=== PATIENT | female | born 1970 | race Caucasian/White ===

== ENCOUNTER 2022-02-24 16:02 | Emergency (ER) | payer OTHER ==
--- OUTSIDE RECORDS SUMMARY | 2022-02-24 16:10 | XMS REPORT | Continuity of Care Document ---
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 times daily as needed for Pain. hydrOXYzine 2019-04 Yes Anxiety 10mg Take 1 H arris (ATARAX) 10 0-26 tablet by [facility] lth mg tablet 00:00: mouth 3 00 times daily as needed for Itching or Anxiety. baclofen Yes Neck pain 10mg Take 1 Maria rris (LIORESAL) 9-24 tablet by [facility] th 10 mg 00:00: mouth 2 tablet 00 times daily as needed (muscle spasms) STOP cyclobenza kasia (FLEXERIL) 10 mg tablet. amitriptyli Yes Neck pain 25mg Take 1 Mahmood ne (ELAVIL) 9-03 tablet by [facility] lth 25 mg 00:00: mouth at tablet 00 bedtime nightly. varenicline Yes Encounter Start Mahmood (CHANTIX) 09-11 for smoking taking H ealth 0.5 mg 00:00: cessation this tablet 00 counseling medication 1 week prior to setting a quit date for smoking. Stop smoking on day 8.Days 1 to 3: take 1 tablet once dailyDays 4 to 7: take 1 tablet twice daily. varenicline Yes Encounter Start [place] (CHANTIX) 1 6-02 for smoking taking Health mg tablet 00:00: cessation this 00 counseling medication on day 8. Take 1 tablet by mouth 2 times daily.. gabapentin Yes Neck pain 300mg Take 1 [place] (NEURONTIN) 5-15 capsule by [facility] 300 mg 00:00: mouth 3 capsule 00 times daily. ibuprofen Yes Caries 600mg Take 1 [facility] (MOTRIN) 4-13 tablet by [facility] 600 mg 00:00: mouth tablet 00 every 8 hours as needed for Pain. MULTIVITAMI Yes Take by [facility] N (DAILY 9-24 mouth. Health VITAMIN OR) 08:09: 11 sulfamethox Yes 1{tbl} Q.5D Take 1 Maria rris azole-trime 9-24 tablet by [facility] thoprim 08:09: mouth 2 (BACTRIM 11 times DS) 800-160 daily. mg per tablet conjugated Yes Vaginal .5g Insert 0.5 [place] estrogens 803 dryness g [facility] (PREMARIN) 00:00: vaginally 0.625 00 2 times mg/gram weekly. vaginal cream silver Yes Desquamated Apply [facility] sulfADIAZIN 4-29 skin topically [facility] E 00:00: to (SILVADENE) 00 radiated 1 % topical area up to cream three times daily and after each bath.. ibuprofen Yes Cervical 400mg Take 2 H arris (MOTRIN IB) 2-13 cancer tablets by [facility] 200 mg 00:00: mouth tablet 00 every 6 hours as needed for Pain. Immunizations Ordered Immunization Filled Immunization Date Status Commen ts Source Name Name FLUCELVAX QUAD PF 2021-02-[address] 00:00:00 [facility] PFIZER COVID-19 MRNA 2020-08-05 Completed Meth odist VACCINATION 00:00:00 Hospital PFIZER COVID-19 MRNA 2020-07-08 Completed Meth odist VACCINATION 00:00:00 [facility] Influenza, 2020-03-12 Completed [facility] Vaccine<FLUCELVAX>(M 00:00:00 ulti-Dose) Tdap (Tetanus 2020-03-12 Completed [facility] th Toxoid, Reduced 00:00:00 Diphtheria Toxoid And Acellular Pertussis, Absorbed) Vital Signs Vital Name Observation Time Observation Value Comments Source Systolic blood 2022-02-20 01:13:29 129 mm[Hg] Method [facility] pressure Diastolic blood 2022-02-20 01:13:29 67 mm[Hg] [facility] pressure Heart rate 2022-02-20 01:13:29 60 /min [facility] [place] [place] Respiratory rate 2022-02-20 01:13:29 18 /min [facility] Oxygen saturation in 2022-02-20 01:13:29 96 /min [facility] Arterial blood by Pulse oximetry Body height 2022-02-19 20:30:[address] [facility] [place] [place] Body weight 2022-02-19 20:30:[address] [facility] [place] [place] BMI 2022-02-19 20:30:00 30.04 kg/m2 [facility] [place] [place] Body temperature 2022-02-19 20:29:09 36.61 Nydia [facility] pulse rate 2021-12-16 13:21:49 87 /min [facility], 2021-12-16 13:21:49 67 mm[Hg] [facility] blood pressure, 2021-12-16 13:21:49 132 mm[Hg] [facility] systolic Health pulse rate 2020-11-25 14:31:56 70 [facility], 2020-11-25 14:31:56 74 mm[Hg] [facility] diastolic Health blood pressure, 2020-11-25 14:31:56 113 mm[Hg] [facility] pulse rate 2020-11-25 13:39:38 70 /[facility], 2020-11-25 13:39:38 74 mm[Hg] [facility] blood pressure, 2020-11-25 13:39:38 113 mm[Hg] [facility] Procedures Procedure Date / Time Performing Source Performed Clinician CT CHEST WO CONTRAST ABDOMEN WO 2022-02-20 Cristóbal Ovalle CONTRAST PELVIS WO CONTRAST 01:47:08 [facility] ECG ED PRELIMINARY INTERPRETATION 2022-02-20 Cristóbal Ovalle 01:34:30 [facility] HC COMPLETE BLD COUNT W/AUTO DIFF 2022-02-19 Eulalio Manning 21:40:00 Hospital COMPREHENSIVE METABOLIC PANEL 2022-02-19 Alee Manning [facility] 21:40:00 Hospital HCG QUALITATIVE, SERUM SCREEN 2022-02-19 Alee Manning [facility] 21:40:00 Hospital ESTIMATED GFR 2022-02-19 Alee Manning Confucianist 21:40:00 Hospital ECG 12-LEAD 2022-02-19 Alee Manning 20:46:22 Hospital URINE CULTURE 2022-02-19 Alee Manning 20:34:00 Hospital URINALYSIS SCREEN AND MICROSCOPY, 2022-02-19 Eulalio Manning WITH REFLEX TO CULTURE 20:34:00 Hospital HEPATITIS B SURFACE ANTIGEN 2022-02-05 Eddie Farris odist 15:30:00 Hospital HEPATITIS C ANTIBODY 2022-02-05 Eddie Farris 15:30:00 [facility] HIV 1/2 ANTIGEN/ANTIBODY, FOURTH 2022-02-05 Eddie Farris GENERATION, WITH REFLEXES 15:30:00 Hospit al HSV 1 AND 2 SPECIFIC AB IGG 2022-02-05 Eddie Farris odist 15:30:00 Hospital RPR WITH REFLEX TO TITER 2022-02-05 Eddie Farris 15:30:00 [facility] HEPATITIS C VIRUS (HCV), 2022-02-[address] QUANTITATIVE PCR 15:30:00 Hospital SURGICAL PATHOLOGY REQUEST 2021-12-26 Esthela Small Wy thodist 18:06:00 Hospital COLONOSCOPY 2021-12-26 Esthela Smallist 15:44:00 [facility] ESOPHAGOGASTRODUODENOSCOPY (EGD) 2021-12-26 Esthela Small Confucianist 15:44:00 Hospital COVID-19 QUALITATIVE RT-PCR 2021-12-24 Esthela Small ethodist 12:41:00 [facility] THINPREP TIS AND HPV MRNA E6/E7 2021-12-18 Eddie Farris 18:34:00 [facility] ECG 12-LEAD 2021-11-28 Keith Carroll 15:26:34 [facility] TROPONIN T 2021-11-07 Zeyad Cohen 20:01:00 [facility] COVID-19 QUALITATIVE RT-PCR 2021-11-07 Zeyad Cohen odniki 19:09:00 [facility] COVID-19 OMICRON VARIANT 2021-11-[address] QUALITATIVE RT-PCR 19:09:00 [facility] XR CHEST 2 VW 2021-11-07 Zeyad Cohen 18:51:38 [facility] ECG ED PRELIMINARY INTERPRETATION 2021-11-07 Karo Cohen 18:50:27 [facility] COMPREHENSIVE METABOLIC PANEL 2021-11-07 Zeyad Cohen Wy thodist 18:03:00 [facility] TROPONIN T 2021-11-07 Zeyad Cohen 18:03:00 [facility] HC COMPLETE BLD COUNT W/AUTO DIFF 2021-11-07 Karo Cohen 18:03:00 [facility] HCG QUALITATIVE, SERUM SCREEN 2021-11-07 Zeyad Cohen thodist 18:03:00 [facility] ESTIMATED GFR 2021-11-07 Zeyad Cohen 18:03:00 [facility] ECG 12-LEAD 2021-11-07 OghoghoLiborioist 17:57:16 [facility] FL UGI W OR WO KUB 2021-11-03 Esthela Smallist 15:16:30 [facility] HEPATITIS C VIRUS (HCV), 2021-11-03 Esthela Small Meth odniki QUANTITATIVE PCR 13:52:00 [facility] HEPATIC FUNCTION PANEL 2021-11-03 Esthela Small Method ist 13:52:00 [facility] XR CHEST 2 VW 2021-10-15 Julissa Stellamarck Alvarezist 02:52:42 [facility] COMPREHENSIVE METABOLIC PANEL 2021-10-15 Mario Maher Wy thodist 01:15:00 [facility] TROPONIN T 2021-10-15 Mario Maher 01:15:00 [facility] B NATRIURETIC PEPTIDE 2021-10-15 Mario Maherist 01:15:00 [facility] HC COMPLETE BLD COUNT W/AUTO DIFF 2021-10-15 Mario Maher 01:15:00 [facility] PROTHROMBIN TIME WITH INR 2021-10-15 Mario Maher ist 01:15:00 [facility] PARTIAL THROMBOPLASTIN TIME (PTT) 2021-10-15 Mario Maher 01:15:00 [facility] ESTIMATED GFR 2021-10-15 Mario Maher 01:15:00 [facility] ECG 12-LEAD 2021-10-15 Mario Maher 00:33:[address] [facility] [address] ANGIOGRAM PE CHEST 2021-10-12 Trung Hudson 17:55:52 Hospital HC COMPLETE BLD COUNT W/AUTO DIFF 2021-10-12 Trung Hudson 15:36:00 Hospital COMPREHENSIVE METABOLIC PANEL 2021-10-12 Trung Hudson ethodist 15:36:00 Hospital TROPONIN T 2021-10-12 Trung Hudson 15:36:00 Hospital B NATRIURETIC PEPTIDE 2021-10-12 Trung Hudson 15:36:00 Hospital CREATINE KINASE, TOTAL (CPK) 2021-10-12 Trung Hudson thodist 15:36:00 Hospital ESTIMATED GFR 2021-10-12 Trung Hudson 15:36:00 Hospital ECG ED PRELIMINARY INTERPRETATION 2021-10-12 Trung Hudson 15:20:39 Hospital URINE CULTURE 2021-10-12 Rajinder Ordoñez 15:17:00 [facility] URINALYSIS SCREEN AND MICROSCOPY, 2021-10-12 Arslan Ordoñez WITH REFLEX TO CULTURE 15:17:00 [facility] HCG QUALITATIVE, URINE SCREEN 2021-10-12 Rajinder Ordoñez 15:17:00 [facility] ECG 12-LEAD 2021-10-12 Rajinder Ordoñez 14:48:50 [facility] [place] AN ELECTIVE SUPRAGLOTTIC AIRWAY 2021-09-30 Ruddy Marie 12:10:00 Hospital DECOMPRESSION, ULNAR NERVE 2021-09-30 Rebecca Brownlee 12:06:00 [facility] COVID-19 QUALITATIVE RT-PCR 2021-09-26 Dulce Maria Pierre 14:23:00 [facility] PROTHROMBIN TIME WITH INR 2021-09-26 Antonio Pierre ist 14:23:00 [facility] PARTIAL THROMBOPLASTIN TIME (PTT) 2021-09-26 Keith Pierre 14:23:00 [facility] COMPREHENSIVE METABOLIC PANEL 2021-09-26 Gabby Me thodist 14:23:00 [facility] ESTIMATED GFR 2021-09-26 Rebecca Brownlee 14:23:00 [facility] HEMOGLOBIN A1C 2021-09-26 Rebecca Brownlee 14:23:00 [facility] CBC WITH PLATELET AND DIFFERENTIAL 2021-09-19 Lexie Esparza 07:10:00 Hospital THYROID STIMULATING HORMONE 2021-09-19 Peggy Esparza 07:10:00 [facility] XR ELBOW 3+ VW LEFT 2021-09-10 Rebecca Brownlee 15:28:27 [facility] CT ANGIOGRAM NECK W WO CONTRAST 2021-08-27 Christine Retana 00:01:04 [facility] CT ANGIOGRAM HEAD W WO CONTRAST 2021-08-27 Christine Retana 00:00:50 [facility] CT HEAD WO CONTRAST 2021-08-26 Christine Retana 23:42:36 [facility] ECG ED PRELIMINARY INTERPRETATION 2021-08-26 Christine Retana 23:22:45 [facility] HC COMPLETE BLD COUNT W/AUTO DIFF 2021-08-26 Christine Retana 21:57:00 [facility] COMPREHENSIVE METABOLIC PANEL 2021-08-26 Christine Retana Me thodist 21:57:00 [facility] TROPONIN T 2021-08-26 Christine Retana 21:57:00 [facility] B NATRIURETIC PEPTIDE 2021-08-26 Christine Retana 21:57:00 [facility] HCG QUALITATIVE, SERUM SCREEN 2021-08-26 Christine Retana Me thodist 21:57:00 [facility] ESTIMATED GFR 2021-08-26 Christine Retana 21:57:00 [facility] ECG 12-LEAD 2021-08-26 Christine Retana 21:42:16 [facility] URINE CULTURE 2021-08-06 Evelyn Martin Confucianist 22:27:00 [facility] URINALYSIS SCREEN AND MICROSCOPY, 2021-08-06 Evelyn Martin Siist WITH REFLEX TO CULTURE 22:27:00 [facility] XR CHEST 2 VW 2021-08-06 Evelyn Martin Confucianist 20:36:00 [facility] INFLUENZA ANTIGEN 2021-08-06 Susie Melton 20:10:00 [facility] RESPIRATORY PATHOGEN PANEL WITH 2021-08-06 Susie Melton COVID-19 RT-PCR 20:10:00 [facility] ECG ED PRELIMINARY INTERPRETATION 2021-08-06 Evelyn Martin Si Confucianist 20:08:02 [facility] COMPREHENSIVE METABOLIC PANEL 2021-08-06 Susie Melton thodist 20:05:00 [facility] HC COMPLETE BLD COUNT W/AUTO DIFF 2021-08-06 Paige Melton Confucianist 20:05:00 [facility] TROPONIN T 2021-08-06 Susie Melton 20:05:00 [facility] LIPASE LEVEL 2021-08-06 Susie Melton Confucianist 20:05:00 [facility] ESTIMATED GFR 2021-08-06 Susie Melton 20:05:00 [facility] ECG 12-LEAD 2021-08-06 Susie Melton Confucianist 19:55:29 [facility] TROPONIN T 2021-08-01 Christine Retana Confucianist 03:32:00 [facility] ECG ED PRELIMINARY INTERPRETATION 2021-08-01 Nelson Villagran i Confucianist 02:37:45 [facility] HC COMPLETE BLD COUNT W/AUTO DIFF 2021-08-01 Christine Retana Confucianist 00:35:00 [facility] COMPREHENSIVE METABOLIC PANEL 2021-08-01 Christine Retana thodist 00:35:00 [facility] TROPONIN T 2021-08-01 Christine Retana Confucianist 00:35:00 [facility] B NATRIURETIC PEPTIDE 2021-08-01 Christine Retana Confucianist 00:35:00 [facility] ESTIMATED GFR 2021-08-01 Christine Retana Confucianist 00:35:00 [facility] ECG 12-LEAD 2021-08-01 Christine Retana Confucianist 00:23:19 [facility] TROPONIN T 2021-07-30 Jaida Sales 21:35:00 Hospital ECG ED PRELIMINARY INTERPRETATION 2021-07-30 Evelyn Martin Si 19:53:48 Hospital XR CHEST 2 VW 2021-07-30 Evelyn Martin Confucianist 19:37:56 Hospital COMPREHENSIVE METABOLIC PANEL 2021-07-30 Jaida Sales 18:40:00 Hospital HC COMPLETE BLD COUNT W/AUTO DIFF 2021-07-30 Jaida Sales 18:40:00 Hospital TROPONIN T 2021-07-30 Jaida Sales 18:40:00 Hospital B NATRIURETIC PEPTIDE 2021-07-[address] 18:40:00 Hospital ESTIMATED GFR 2021-07-30 Jaida Sales 18:40:00 Hospital ECG 12-LEAD 2021-07-30 Jaida Sales 18:33:57 Hospital MAMMO BREAST SCREEN TOMOSYNTHESIS 2021-07-28 IsShell olivia Confucianist BILATERAL 14:20:00 [facility] ECG ED PRELIMINARY INTERPRETATION 2021-07-01 Nelson Villagran i 00:04:28 Hospital TROPONIN T 2021-06-30 Mario Maher 23:09:00 [facility] RESPIRATORY PATHOGEN PANEL WITH 2021-06-30 Mario Maher COVID-19 RT-PCR 21:09:00 [facility] XR CHEST 2 VW 2021-06-30 Mario Maher 20:40:51 [facility] COMPREHENSIVE METABOLIC PANEL 2021-06-30 Mario Maher Me thodist 20:06:00 [facility] TROPONIN T 2021-06-30 Mario Maher 20:06:00 [facility] B NATRIURETIC PEPTIDE 2021-06-30 Mario Maher 20:06:00 [facility] HC COMPLETE BLD COUNT W/AUTO DIFF 2021-06-30 Mario Maher 20:06:00 [facility] ESTIMATED GFR 2021-06-30 Mario Maher 20:06:00 [facility] ECG 12-LEAD 2021-06-30 Mario Maher 19:54:19 [facility] POC URINALYSIS DIPSTICK 2021-06-16 Eddie Farris t 18:20:00 [facility] THINPREP TIS PAP AND HPV MRNA 2021-06-16 Eddie Farris Me thodist E6/E7 REFLEX HPV 16,18/45 18:17:00 Hospit al URINALYSIS, COMPLETE, WITH REFLEX 2021-06-16 Eddie Farris TO CULTURE 17:55:00 Hospital XR SHOULDER 2+ VW RIGHT 2021-06-02 Roger Ling t 17:52:26 [facility] MRI LUMBAR SPINE WO CONTRAST 2021-05-09 Shell Vargas Met hodist 18:44:08 [facility] MRI CERVICAL SPINE WO CONTRAST 2021-05-05 Shell Vargas ethodist 14:11:49 [facility] CT LUMBAR SPINE WO CONTRAST 2021-05-04 Liborio Herrera hodist 22:36:[address] THORACIC SPINE WO CONTRAST 2021-05-04 [facility] 22:35:58 Hospital TROPONIN T 2021-04-13 Shine Lui 01:33:00 Hospital XR CHEST 2 VW 2021-04-12 Shine Lui 23:31:00 [facility] COMPREHENSIVE METABOLIC PANEL 2021-04-12 Shine Lui thodist 22:56:00 Hospital LIPASE LEVEL 2021-04-12 Shine Lui 22:56:00 Hospital HC COMPLETE BLD COUNT W/AUTO DIFF 2021-04-12 Shine Lui 22:56:00 Hospital TROPONIN T 2021-04-12 Shine Lui 22:56:00 Hospital ESTIMATED GFR 2021-04-12 Shine Lui 22:56:[address] RENAL STONE PROTOCOL 2021-04-12 Shine uLi 22:36:21 Hospital ECG 12-LEAD 2021-04-12 Shine Lui 21:52:29 Hospital URINE CULTURE 2021-04-12 Shine Lui 21:52:00 [facility] URINALYSIS SCREEN AND MICROSCOPY, 2021-04-12 Shine Lui WITH REFLEX TO CULTURE 21:52:00 [facility] ECG ED PRELIMINARY INTERPRETATION 2021-04-12 Shine Lui 21:47:56 [facility] Plan of Care Planned Activity Planned Date Details Comments Source Future Scheduled 2024-09-11 Screening for [facility] Test 00:00:00 malignant neoplasm of cervix (procedure) [code = 680566259] Future Scheduled 2024-09-11 Screening for [facility] Test 00:00:00 malignant neoplasm of cervix (procedure) [code = 552832503] Future Scheduled 2022-02-22 HEPATITIS B VACCINES Met [facility] Test 22:17:15 (1 of 3 - 3-dose series) [code = HEPATITIS B VACCINES (1 of 3 - 3-dose series)] Future Scheduled 2022-02-22 Pneumococcal Vaccine: [facility] Test 22:17:15 Pediatrics (0 to 5 Years) and At-Risk Patients (6 to 64 Years) (1 - PCV) [code = Pneumococcal Vaccine: Pediatrics (0 to 5 Years) and At-Risk Patients (6 to 64 Years) (1 - PCV)] Future Scheduled 2022-02-22 COLONOSCOPY SCREENING [facility] Test 22:17:15 [code = COLONOSCOPY SCREENING] Future Scheduled 2022-02-22 SHINGLES VACCINES (1 Met [facility] Test 22:17:15 of 2) [code = SHINGLES VACCINES (1 of 2)] Future Scheduled 2022-02-22 COVID-19 VACCINE (3 - [facility] Test 22:17:15 Booster for Pfizer series) [code = COVID-19 VACCINE (3 - Booster for Pfizer series)] Future Scheduled 2022-02-22 INFLUENZA VACCINE Method [facility] Test 22:17:15 [code = INFLUENZA VACCINE] Future Scheduled 2022-02-22 BREAST CANCER [facility] Test 22:17:15 SCREENING [code = BREAST CANCER SCREENING] Future Scheduled 2022-02-22 Screening for [facility] Test 22:17:15 malignant neoplasm of cervix (procedure) [code = 117199713] Future Scheduled 2022-01-10 IMM Influenza Seasonal H arr Health Test 00:00:00 (>/= 19 yrs) [code = IMM Influenza Seasonal (>/= 19 yrs)] Future Scheduled 2020-01-14 Breast Cancer Scrn [facility] Test 00:00:00 (Yearly) [code = Breast Cancer Scrn (Yearly)] Future Scheduled 2019 Screening for Mahmood [facility] lt Test 00:00:00 malignant neoplasm of colon (procedure) [code = 980201164] Future Scheduled 1975 Imm Pneumococcal 0-64 Maria [facility] Health Test 00:00:00 (1 - PCV) [code = Imm Pneumococcal 0-64 (1 - PCV)] Future Scheduled 1972 Dental X-Ray: Mahmood a lt Test 00:00:00 Bitewings [code = Dental X-Ray: Bitewings] Future Scheduled 1969 COVID-19 Vaccine (#1) [facility] Test 00:00:00 [code = COVID-19 Vaccine (#1)] Future Scheduled 1969 Dental Oral Exam [code [facility] Test 00:00:00 = Dental Oral Exam] Future Scheduled 1969 Dental [facility] Test 00:00:00 Prophylaxis/Periodonta l Maintenance [code = Dental Prophylaxis/Periodonta l Maintenance] Future Scheduled 1969 Dental X-Ray: Full [facility] Test 00:00:00 Mouth [code = Dental X-Ray: Full Mouth] Future Scheduled 1969 Fluoride Varnish [code [facility] Test 00:00:00 = Fluoride Varnish] Encounters Start End Encounter Admission Attending Care Care Encounter Source Date/Time Date/Time Type Type Clinicians Facility Department ID 2022-02-19 2022-02-19 Emergency Mickey, 1.2.840.1 [id number] Methodi 18:09:00 20:16:[address] [place] 3.430.2.7 Hosp shai .3.256110 l .8 2022-02-19 2022-02-19 Emergency [facility] [id number] [place] [address] 00:00:00 00:00:00 CRISTÓBAL [address] 2022-02-12 2022-02-12 Orders Jessica 1.2.840.1 [id number] Methodi 00:00:00 00:00:00 Only Maureen 55666.1.[address] 3.430.2.7 Hospit a .3.717738 l .8 2022-02-11 2022-02-11 Orders Jessica, 1.2.840.1 [id number] Methodi 00:00:00 00:00:00 Only Maureen 99703.1.[address] 3.430.2.7 Hospit a .3.469157 l .8 2022-02-11 2022-02-11 Telephone Prasanth, 1.2.840.1 [id number] Methodi 00:00:00 00:00:[address] 3.430.2.7 Hospit a .3.817540 l .8 2022-02-09 2022-02-09 Outpatient COH COH PDPFCCG ETQ COH 00:00:00 00:00:00 [id number] 2022-02-09 2022-02-09 Telephone Prasanth, 1.2.840.1 [id number] Methodi 00:00:00 00:00:[address] 3.430.2.7 Hospit a .3.801846 l .8 2022-02-05 2022-02-05 Lab Prasanth, 1.2.840.1 [id number] Methodi 10:50:00 10:55:00 Eddie Franco [address]44.1.[address] 3.430.2.7 Hospit a .3.396663 l .8 2022-02-05 2022-02-05 Office Prasanth, 1.2.840.1 [id number] Methodi 09:40:00 10:31:06 Visit Eddie Franco 26324.1.[address] 3.430.2.7 Hospit a .3.141684 l .8 2022-02-05 2022-02-05 Travel 1.2.840.1 1.2.864.656 [id number] Methodi 00:00:00 00:00:[address] 3.430.2.7 0.2.7.3.698 Ho spita .3.369710 084.8 l .8 2022-02-05 2022-02-05 Refill Alicia, 1.2.840.1 [id number] Methodi 00:00:00 00:00:[address] [place] 3.430.2.7 Hospi ta .3.869000 l .8 2022-02-05 2022-02-05 Outpatient PRASANTH, [facility] [id number] 00:00:00 00:00:[address] 2022-02-05 2022-02-05 Outpatient [facility] [id number] [address] 00:00:00 00:00:[address] 2022-02-03 2022-02-03 Telephone Prasanth, 1.2.840.1 [id number] Methodi 00:00:00 00:00:00 Eddie Franco 42065.1.[address] 3.430.2.7 Hospit a .3.491232 l .8 2022-01-01 2022-01-01 Telephone Alessio, 1.2.840.1 [id number] Methodi 00:00:00 00:00:[address] 3.430.2.7 Hospit a .3.235676 l .8 2021-12-26 2021-12-26 [facility], 1.2.840.1 [id number] Methodi 11:00:00 11:45:[address] Hasan 3.430.2.7 Hospit a .3.019640 l .8 2021-12-26 2021-12-26 [facility], 1.2.840.1 [id number] Methodi 10:21:00 11:28:00 Encounter Proctor 64171.1.[address] Hasan 3.430.2.7 Hospit a .3.588413 l .8 2021-12-26 2021-12-26 Anesthesia Hans Casper 1.2.840.1 [id number] Methodi 10:44:00 11:06:00 Event Vitaliy 21504.1.[address] 3.430.2.7 Hospit a .3.730856 l .8 2021-12-26 2021-12-26 Travel 1.2.840.1 1.2.862.920 [id number] Methodi 00:00:00 00:00:[address] 3.430.2.7 0.2.7.3.698 Ho spita .3.446492 084.8 l .8 2021-12-26 2021-12-26 Outpatient [facility] 185 [id number] [address] 00:00:00 00:00:00 PROCTOR [address] 2021-12-24 2021-12-24 Lab Staci, 1.2.840.1 [id number] Methodi 08:00:00 08:15:[address] Hasan 3.430.2.7 Hospit a .3.590673 l .8 2021-12-24 2021-12-24 Orders Marc, 1.2.840.1 [id number] Methodi 00:00:00 00:00:00 Only Kortney 13860.1.[address] 3.430.2.7 Hospit a .3.978207 l .8 2021-12-24 2021-12-24 Outpatient [facility] [id number] [address] 00:00:00 00:00:[address] PROCTOR [address] 2021-12-18 2021-12-18 Office Prasanth, 1.2.840.1 [id number] Methodi 11:00:00 13:02:01 Visit Eddie Franco 01616.1.1 065 st 3.430.2.7 Hospit a .3.365604 l .8 2021-12-18 2021-12-18 Travel 1.2.840.1 1.2.573.627 1269 395997 Methodi 00:00:00 00:00:[address] 3.430.2.7 0.2.7.3.698 Ho spita .3.313195 084.8 l .8 2021-12-18 2021-12-18 Outpatient [facility] [id number] [address] [place] 00:00:00 00:00:[address] 2021-12-16 2021-12-16 Office Doug Estevez [facility] Encounter/ Legacy 00:00:00 00:00:00 Visit Bijan Carson [id number] [facility]ly [facility] [id number] [facility] 2021-12-09 2021-12-09 Refill Oleksandr, 1.2.840.1 [id number] 2099 [id number] Methodi 00:00:00 00:00:[address] 3.430.2.7 Hospit a .3.310687 l .8 2021-11-28 2021-11-28 Office Carly, 1.2.840.1 [id number] 814 [id number] Methodi 10:15:00 10:52:48 [address] Pimprapa 14697.1.[address] 3.430.2.7 Hospit a .3.701333 l .8 2021-11-28 2021-11-28 Travel 1.2.840.1 1.2.042.855 5067 090275 Methodi 00:00:00 00:00:[address] 3.430.2.7 0.2.7.3.698 Ho spita .3.821274 084.8 l .8 2021-11-28 2021-11-28 Outpatient CARLY [facility] 2099 [id number] [place] 00:00:00 00:00:[address] 2021-11-17 2021-11-17 Office Fabby, 1.2.840.1 [id number] 459536 4904 Methodi 09:00:00 09:30:00 Visit Juana 44420.1.[address] Kelley 3.430.2.7 Hospit a .3.543033 l .8 2021-11-17 2021-11-17 Travel 1.2.840.1 1.2.618.329 1253 326634 Methodi 00:00:00 00:00:[address] 3.430.2.7 0.2.7.3.698 Ho spita .3.350773 084.8 l .8 2021-11-17 2021-11-17 Outpatient [facility] [id number] [address] [place] [address] 00:00:00 00:00:[address] 2021-11-14 2021-11-14 Orders Istre, 1.2.840.1 [id number] 855348 0305 Methodi 00:00:00 00:00:00 Only Shell 36387.1.[address] Doe 3.430.2.7 Hospi ta .3.048674 l .8 2021-11-11 2021-11-11 Telemedici Istre, 1.2.840.1 [id number] 365 [id number] Methodi 10:00:00 10:40:34 ne Shell 76270.1.[address] Doe 3.430.2.7 Hospi ta .3.921684 l .8 2021-11-11 2021-11-11 Outpatient [facility], [facility] [id number] [address] [place] 00:00:00 00:00:00 SHELL [address] 2021-11-07 2021-11-07 Emergency Noel, 1.2.840.1 [id number] 2100 [id number] Methodi 14:04:00 15:46:[address] Kirsten 3.430.2.7 Hospit a .3.912101 l .8 2021-11-07 2021-11-07 Travel 1.2.840.1 1.2.489.218 0755 514759 Methodi 00:00:00 00:00:[address] 3.430.2.7 0.2.7.3.698 Ho spita .3.809460 084.8 l .8 2021-11-07 2021-11-07 Emergency NOEL, [facility] 064 [id number] [address] [place] 00:00:00 00:00:[address] 2021-11-03 2021-11-03 Lab Staci, 1.2.840.1 [id number] 563732 9256 Methodi 08:25:00 08:30:[address] Hasan 3.430.2.7 Hospit a .3.378975 l .8 2021-11-03 2021-11-03 Telephone Alessio 1.2.840.1 [id number] 2100 820691 Methodi 00:00:00 00:00:[address] 3.430.2.7 Hospit a .3.464968 l .8 2021-11-03 2021-11-03 Travel 1.2.840.1 1.2.436.681 9537 854521 Methodi 00:00:00 00:00:[address] 3.430.2.7 0.2.7.3.698 Ho spita .3.771722 084.8 l .8 2021-11-03 2021-11-03 Outpatient [facility] [id number] [address] [place] 00:00:00 00:00:00 PROCTOR [address] 2021-11-03 2021-11-03 Outpatient [facility] [id number] [address] [place] 00:00:00 00:00:00 PROCTOR [address] 2021-10-29 2021-10-29 Documentat Binta 1.2.840.1 [id number] 2 [id number] Methodi 00:00:00 00:00:00 ion Amanda 15713.1.[address] 3.430.2.7 Hospit a .3.964353 l .8 2021-10-29 2021-10-29 Prep for Binta, 1.2.840.1 [id number] 059 [id number] Methodi 00:00:00 00:00:00 Surgery Amanda 65946.1.[address] 3.430.2.7 Hospit a .3.402763 l .8 2021-10-29 2021-10-29 Telephone Binta, 1.2.840.1 [id number] [id number] Methodi 00:00:00 00:00:[address] 3.430.2.7 Hospit a .3.740968 l .8 2021-10-29 2021-10-29 Travel 1.2.840.1 1.2.353.987 6337 432618 Methodi 00:00:00 00:00:[address] 3.430.2.7 0.2.7.3.698 Ho spita .3.377202 084.8 l .8 2021-10-22 2021-10-22 Office Kem, 1.2.840.1 [id number] 758 [id number] Methodi 09:40:00 10:17:00 Visit Rebecca Nguyen 57462.1.[address] 3.430.2.7 Hospit a .3.369000 l .8 2021-10-22 2021-10-22 Travel 1.2.840.1 1.2.177.578 9046 389017 Methodi 00:00:00 00:00:[address] 3.430.2.7 0.2.7.3.698 Ho spita .3.972926 084.8 l .8 2021-10-22 2021-10-22 Outpatient KEM [facility] 2100 490169 [place] 00:00:00 00:00:00 REBECCA [facility] 2021-10-14 2021-10-15 Emergency Julissa, 1.2.840.1 [id number] 034 [id number] Methodi 21:57:00 00:06:00 Stella H [address]200.1.[address] 3.430.2.7 Hospit a .3.001011 l .8 2021-10-14 2021-10-15 Emergency JULISSA, [facility] 930 [id number] 5[address] [place] 00:00:00 00:00:00 STELLA [address] 2021-10-12 2021-10-12 Emergency Hudson, 1.2.840.1 [id number] 2100 648578 Methodi 10:13:00 14:37:[address]ann 18624.1.[address] 3.430.2.7 Hospit a .3.873984 l .8 2021-10-12 2021-10-12 Emergency [facility], [facility] 064 [id number] [address] [place] 00:00:00 00:00:00 TRUNG [address] 2021-10-09 2021-10-09 Telephone Juan Carlos Rivers 1.2.840.1 [id number] Methodi 00:00:00 00:00:[address] 3.430.2.7 Hospit a .3.933206 l .8 2021-10-09 2021-10-09 Telephone Juan Carlos Rivers 1.2.840.1 [id number] Methodi 00:00:00 00:00:[address] 3.430.2.7 Hospit a .3.441410 l .8 2021-10-09 2021-10-09 Orders Alicia, 1.2.840.1 [id number] 3516 Methodi 00:00:00 00:00:00 Only Shell 03491.1.[address] Gifford 3.430.2.7 Hospi ta .3.266463 l .8 2021-10-02 2021-10-02 Telephone Lazarus 1.2.840.1 [id number] 109 [id number] Methodi 00:00:00 00:00:[address] 3.430.2.7 Hospit a .3.370170 l .8 2021-09-30 2021-09-30 Surgery Kem, 1.2.840.1 [id number] 469 9708002 Methodi 07:15:00 09:02:00 Rebecca Nguyen 37782.1.[address] 3.430.2.7 Hospit a .3.452956 l .8 2021-09-30 2021-09-30 [facility] Kem 1.2.840.1 [id number] 21 [id number] Methodi 06:02:00 08:50:00 Encounter Rebecca Nguyen 11879.1.[address] 3.430.2.7 Hospit a .3.681590 l .8 2021-09-30 2021-09-30 Anesthesia Tomas Mattson W. 1.2.840.1 1045 20688 [id number] Methodi 07:05:00 08:04:00 Event Sunita Marie 78677.1.[address] 3.430.2.7 Hospit a .3.012829 l .8 2021-09-30 2021-09-30 Outpatient [facility] 021 2100 920756 [place] 00:00:00 00:00:00 REBECCA [address] 2021-09-26 2021-09-[address] [facility] 2100 669443 [place] 00:00:00 00:00:00 REBECCA [address] 2021-09-19 2021-09-19 Travel 1.2.840.1 1.2.600.735 4510 968075 Methodi 00:00:00 00:00:[address] 3.430.2.7 0.2.7.3.698 spita .3.210449 084.8 l .8 2021-09-19 2021-09-19 Orders Marrero, 1.2.840.1 [id number] 2099 289726 Methodi 00:00:00 00:00:00 Only Sharon 38158.1.[address] 3.430.2.7 Hospit a .3.153433 l .8 2021-09-19 2021-09-19 Orders Tavares, 1.2.840.1 [id number] 946375 2937 Methodi 00:00:00 00:00:00 Only Peggy 79367.1.[address] 3.430.2.7 Hospit a .3.465993 l .8 2021-09-18 2021-09-18 Orders Propes, 1.2.840.1 252806583 068275 1188 Methodi 00:00:00 00:00:00 Only Pian [address]238.1.[address] 3.430.2.7 Hospit a .3.757667 l .8 2021-09-14 2021-09-14 Orders Tavares, 1.2.840.1 [id number] 222516 8089 Methodi 00:00:00 00:00:00 Only Peggy 71581.1.[address] 3.430.2.7 Hospit a .3.554539 l .8 2021-09-11 2021-09-11 Office Tavares, 1.2.840.1 [id number] 042786 5285 Methodi 15:50:00 16:55:49 Visit Peggy 56705.1.[address] 3.430.2.7 Hospit a .3.382615 l .8 2021-09-11 2021-09-11 Travel 1.2.840.1 1.2.149.683 2401 847060 Methodi 00:00:00 00:00:[address] 3.430.2.7 0.2.7.3.698 spita .3.753829 084.8 l .8 2021-09-11 2021-09-11 [facility] [id number] [address] [place] 00:00:00 00:00:[address] PEGGY [address] 2021-09-10 2021-09-10 Office Kem, 1.2.840.1 [id number] 466 [id number] Methodi 10:40:00 11:03:05 Visit Rebecca Altagracia 05373.1.[address] 3.430.2.7 Hospit a .3.825978 l .8 2021-09-10 2021-09-10 Orders Wyatt, 1.2.840.1 [id number] 2099 374553 Methodi 00:00:00 00:00:00 Only Jami 60094.1.[address] 3.430.2.7 Hospit a .3.956796 l .8 2021-09-10 2021-09-10 Outpatient [facility] 2100 187905 [place] 00:00:00 00:00:00 REBECCA [address] 2021-09-10 2021-09-10 Outpatient [facility] 2100 [id number] [place] 00:00:00 00:00:00 REBECCA [address] 2021-08-31 2021-08-31 Refill Istre, 1.2.840.1 [id number] 443936 5945 Methodi 00:00:00 00:00:[address] Gifford 3.430.2.7 Hospi ta .3.493488 l .8 2021-08-31 2021-08-31 Refill Prasanth, 1.2.840.1 [id number] 343864 3650 Methodi 00:00:00 00:00:00 Eddie Franco 57775.1.[address] 3.430.2.7 Hospit a .3.748557 l .8 2021-08-29 2021-08-29 Telephone Denisse, 1.2.840.1 [id number] 2099 139284 Methodi 00:00:00 00:00:00 [place] Lei 89679.1.[address] 3.430.2.7 Hospit a .3.781209 l .8 2021-08-29 2021-08-29 Orders Istre, 1.2.840.1 [id number] 769155 2080 Methodi 00:00:00 00:00:00 Only Shell 96536.1.[address] Doe 3.430.2.7 Hospi ta .3.609621 l .8 2021-08-28 2021-08-28 Travel 1.2.840.1 1.2.831.225 0375 294284 Methodi 00:00:00 00:00:[address] 3.430.2.7 0.2.7.3.698 Ho spita .3.576866 084.8 l .8 2021-08-26 2021-08-26 Emergency Stevan, 1.2.840.1 [id number] 2100 107927 Methodi 16:36:00 20:08:[address] Adrienne 3.430.2.7 Hospit a .3.574876 l .8 2021-08-26 2021-08-26 Orders Colmenter, 1.2.840.1 [id number] 137 [id number] Methodi 00:00:00 00:00:00 Only Linda 00523.1.[address] 3.430.2.7 Hospit a .3.580683 l .8 2021-08-26 2021-08-26 Emergency STEVAN, [facility] 064 [id number] [address] [place] 00:00:00 00:00:00 CHRISTINE [address] 2021-08-21 2021-08-21 Orders Colmenter, 1.2.840.1 [id number] 626 [id number] Methodi 00:00:00 00:00:00 Only Linda 70765.1.[address] 3.430.2.7 Hospit a .3.365611 l .8 2021-08-14 2021-08-14 Office Colmohsener, 1.2.840.1 [id number] 838 3121442 Methodi 11:00:00 13:05:34 Visit Linda 51904.1.[address] 3.430.2.7 Hospit a .3.246485 l .8 2021-08-14 2021-08-14 Outpatient COLMENTER, [facility] 2100 571138 [place] 00:00:00 00:00:[address] LINDA [address] 2021-08-12 2021-08-12 Office Prasanth, 1.2.840.1 [id number] 0392 Methodi 10:00:00 11:08:57 Visit Eddie Franco 50451.1.[address] 3.430.2.7 Hospit a .3.542074 l .8 2021-08-12 2021-08-12 Travel 1.2.840.1 1.2.135.798 1327 792046 Methodi 00:00:00 00:00:[address] 3.430.2.7 0.2.7.3.698 Ho spita .3.487429 084.8 l .8 2021-08-12 2021-08-12 Outpatient [facility] [id number] [address] [place] 00:00:00 00:00:00 EDDIE [address] 2021-08-08 2021-08-08 Emergency EM Lynda, HCAKW SHIRLENE [id number] 49 [facility] 12:48:00 19:41:00 Di 70 [facility] 2021-08-08 2021-08-08 Emergency EM Lynda, HCAKW HCAKW [id number] [facility] 12:48:00 19:41:00 Di 5521000 [facility] 2021-08-08 2021-08-08 Outpatient Lynda, HCACL LABO [id number] [facility] 19:09:00 19:09:00 Di 00 [facility] 2021-08-08 2021-08-08 Transcribe Istre, 1.2.840.1 [id number] 736 [id number] Methodi 00:00:00 00:00:00 Orders Shell 45142.1.[address] Gifford 3.430.2.7 Hospi ta .3.680152 l .8 2021-08-06 2021-08-06 Emergency Evelyn Martin 1.2.840.1 [id number] Methodi 14:54:00 18:50:[address] 3.430.2.7 Hospit a .3.924412 l .8 2021-08-06 2021-08-06 Travel 1.2.840.1 1.2.421.901 8344 484569 Methodi 00:00:00 00:00:[address] 3.430.2.7 0.2.7.3.698 Ho spita .3.370101 084.8 l .8 2021-08-06 2021-08-06 Emergency EVELYN MARTIN [facility] 064 2100 575071 [place] 00:00:00 00:00:[address] 2021-08-04 2021-08-04 Office Alicia, 1.2.840.1 [id number] 235594 5099 Methodi 14:20:00 15:33:19 Visit Shell 54253.1.[address] Gifford 3.430.2.7 Hospi ta .3.837534 l .8 2021-08-04 2021-08-04 Travel 1.2.840.1 1.2.845.375 0216 546773 Methodi 00:00:00 00:00:[address] 3.430.2.7 0.2.7.3.698 Ho spita .3.690617 084.8 l .8 2021-08-04 2021-08-04 Outpatient ALICIA [facility] [id number] 7[address] [place] 00:00:00 00:00:00 SHELL [address] 2021-07-31 2021-07-31 Emergency Tyshawn, [facility] 1.2.840.1 [id number] Methodi 21:39:00 23:28:[address] 3.430.2.7 Hospit a .3.775315 l .8 2021-07-31 2021-07-31 Travel 1.2.840.1 1.2.279.453 7998 014207 Methodi 00:00:00 00:00:[address] 3.430.2.7 0.2.7.3.698 Ho spita .3.521077 084.8 l .8 2021-07-31 2021-07-31 Emergency TYSHAWN, [facility] 064 2100 266771 [place] 00:00:00 00:00:[address] 2021-07-30 2021-07-30 Emergency MarioEvelyn 1.2.840.1 [id number] Methodi 13:34:00 17:16:[address] 3.430.2.7 Hospit a .3.728919 l .8 2021-07-30 2021-07-30 Telephone Alicia, 1.2.840.1 [id number] 2100 107810 Methodi 00:00:00 00:00:[address] Doe 3.430.2.7 Hospi ta .3.963836 l .8 2021-07-30 2021-07-30 Emergency EVELYN MARTIN [facility] 064 2099 304179 [place] 00:00:00 00:00:[address] 2021-07-28 2021-07-28 Outpatient TAVARES [facility] [id number] 879 [place] 00:00:00 00:00:[address] PEGGY [address] 2021-07-24 2021-07-24 Orders Jessica, 1.2.840.1 [id number] 93783 77969 Methodi 00:00:00 00:00:00 Only Maureen 39567.1.[address] 3.430.2.7 Hospit a .3.781595 l .8 2021-07-23 2021-07-23 Orders Istre, 1.2.840.1 [id number] 0706 Methodi 00:00:00 00:00:00 Only Shell 06042.1.[address] Doe 3.430.2.7 Hospi ta .3.300223 l .8 2021-07-21 2021-07-21 Orders Istre, 1.2.840.1 [id number] 276025 6523 Methodi 00:00:00 00:00:00 Only Shell 09989.1.[address] Gifford 3.430.2.7 Hospi ta .3.967690 l .8 2021-07-15 2021-07-15 Telephone Oleksandr, 1.2.840.1 [id number] 21 [id number] Methodi 00:00:00 00:00:[address] 3.430.2.7 Hospit a .3.415995 l .8 2021-07-15 2021-07-15 Travel 1.2.840.1 1.2.826.995 5261 860138 Methodi 00:00:00 00:00:[address] 3.430.2.7 0.2.7.3.698 Ho spita .3.880668 084.8 l .8 2021-07-10 2021-07-10 Treatment Iscorwin, Shell Persaudrand 1.2.840.1 [id number] Methodi 09:00:00 10:00:00 Peggy Esparza 73701.1.[address] [place], Smooth 3.430.2.7 H ospita .3.834825 l .8 2021-07-10 2021-07-10 Plan of 1.2.840.1 [id number] 760942 2037 Methodi 00:00:00 00:00:[address] Documentat 3.430.2.7 Hos margie ion .3.012902 l .8 2021-07-10 2021-07-10 [facility] [id number] [address] [place] 00:00:00 00:00:00 PEGGY [address] 2021-07-09 2021-07-09 Travel 1.2.840.1 1.2.403.712 0274 122100 Methodi 00:00:00 00:00:[address] 3.430.2.7 0.2.7.3.698 Ho spita .3.075728 084.8 l .8 2021-07-09 2021-07-09 Orders Istre, 1.2.840.1 [id number] 845892 5928 Methodi 00:00:00 00:00:00 Only Shell 21364.1.[address] [place]ord 3.430.2.7 Hospi ta .3.038351 l .8 2021-07-03 2021-07-03 Travel 1.2.840.1 1.2.781.677 4051 422555 Methodi 00:00:00 00:00:[address] 3.430.2.7 0.2.7.3.698 Ho spita .3.046991 084.8 l .8 2021-06-30 2021-06-30 Emergency [facility] 1.2.840.1 [id number] Methodi 14:43:00 20:06:[address] 3.430.2.7 Hospit a .3.518480 l .8 2021-06-30 2021-06-30 Emergency [facility] 064 2100 821968 [place] 00:00:00 00:00:[address] 2021-06-19 2021-06-19 Orders Madera, 1.2.840.1 [id number] 8465 Methodi 00:00:00 00:00:00 Only Susanne 17149.1.[address] 3.430.2.7 Hospit a .3.377154 l .8 2021-06-18 2021-06-18 Orders Tran, 1.2.840.1 [id number] 173072 8804 Methodi 00:00:00 00:00:00 Only Kortney 18684.1.[address] 3.430.2.7 Hospit a .3.680408 l .8 2021-06-18 2021-06-18 Telephone Jessica, 1.2.840.1 [id number] 690 1092423 Methodi 00:00:00 00:00:[address] 3.430.2.7 Hospit a .3.165143 l .8 2021-06-16 2021-06-16 Office Prasanth, 1.2.840.1 [id number] 688497 4827 Methodi 11:40:00 13:03:55 Visit Eddie Franco 59733.1.[address] 3.430.2.7 Hospit a .3.803072 l .8 2021-06-16 2021-06-16 Travel 1.2.840.1 1.2.688.490 5665 795084 Methodi 00:00:00 00:00:[address] 3.430.2.7 0.2.7.3.698 Ho spita .3.029161 084.8 l .8 2021-06-16 2021-06-16 [facility] [id number] [address] [place] 00:00:00 00:00:00 EDDIE [address] [facility] 2021-06-03 2021-06-03 Refill Madera, 1.2.840.1 [id number] 877391 4304 Methodi 00:00:00 00:00:[address] 3.430.2.7 Hospit a .3.007270 l .8 2021-06-03 2021-06-03 Telephone Abreu, 1.2.840.1 [id number] 2099 620280 Methodi 00:00:00 00:00:[address] 3.430.2.7 Hospit a .3.465817 l .8 2021-06-02 2021-06-02 Emergency Gunnar, 1.2.840.1 [id number] 2 [id number] Methodi 10:56:00 13:23:00 Mario Crook 72144.1.1 606 [address] t 3.430.2.7 Hospit a .3.933560 l .8 2021-06-02 2021-06-02 Orders Alicia, 1.2.840.1 [id number] 374503 3557 Methodi 00:00:00 00:00:00 Only Shell 61549.1.[address] [place] 3.430.2.7 Hospi ta .3.482621 l .8 2021-06-02 2021-06-02 [facility] 064 [place] 00:00:00 00:00:00 MARIO [address] 2021-05-30 2021-05-30 Treatment Shell Vargas 1.2.840.1 [id number] Methodi 10:00:00 11:00:00 Smooth Alcala 05609.1.[address] 3.430.2.7 Hospit a .3.190835 l .8 2021-05-30 2021-05-30 Outpatient ALICIA [facility] [id number] 183 [place] 00:00:00 00:00:00 SHELL [address] 2021-05-28 2021-05-28 Orders Alicia, 1.2.840.1 [id number] 728834 8912 Methodi 00:00:00 00:00:00 Only Shell 13244.1.[address] [place] 3.430.2.7 Hospi ta .3.080522 l .8 2021-05-27 2021-05-27 Travel 1.2.840.1 1.2.320.577 2399 214239 Methodi 00:00:00 00:00:[address] 3.430.2.7 0.2.7.3.698 Ho spita .3.911232 084.8 l .8 2021-05-19 2021-05-19 Evaluation Shell Vargas 1.2.840.1 [id number] [id number] Methodi 11:00:00 12:00:00 Peggy Esparza 46767.1.[address] Fredrick Smooth 3.430.2.7 H ospita .3.999980 l .8 2021-05-19 2021-05-19 Plan of 1.2.840.1 [id number] 027341 6036 Methodi 00:00:00 00:00:[address] Documentat 3.430.2.7 Hos margie ion .3.505364 l .8 2021-05-19 2021-05-19 Travel 1.2.840.1 1.2.648.356 6683 274901 Methodi 00:00:00 00:00:[address] 3.430.2.7 0.2.7.3.698 Ho spita .3.455381 084.8 l .8 2021-05-19 2021-05-19 Outpatient ISTRE, [facility] [id number] 728 [place] 00:00:00 00:00:00 SHELL [address] 2021-05-09 2021-05-09 Travel 1.2.840.1 1.2.529.773 8182 [id number] Methodi 00:00:00 00:00:[address] 3.430.2.7 0.2.7.3.698 Ho spita .3.334645 084.8 l .8 2021-05-09 2021-05-09 Outpatient TAVARES, [facility] [id number] [address] [place] 00:00:00 00:00:00 PEGGY [address] [facility] 2021-05-06 2021-05-06 Orders Istre, 1.2.840.1 [id number] [facility] 00:00:00 00:00:00 Only Shell 11265.1.[address] [place] 3.430.2.7 Hospi ta .3.131431 l .8 2021-05-05 2021-05-05 Outpatient TAVARES, [facility] [id number] [address] [place] 00:00:00 00:00:[address] PEGGY [address] 2021-05-04 2021-05-[address] [facility] 1.2.840.1 [id number] Methodi 14:39:00 18:56:[address] 3.430.2.7 Hospit a .3.154575 l .8 2021-05-04 2021-05-04 Travel 1.2.840.1 1.2.450.397 1862 [id number] [facility]i 00:00:00 00:00:[address] 3.430.2.7 0.2.7.3.698 Ho spita .3.076648 084.8 l .8 2021-05-04 2021-05-04 Emergency [facility], [facility] [id number] [address] [place] 00:00:00 00:00:00 EYITEMI [address] 2021-05-02 2021-05-02 Outpatient [facility] [id number] 9[address] [place] 00:00:00 00:00:00 [facility] 2021-04-30 2021-04-30 Travel 1.2.840.1 1.2.046.907 2324 [id number] Methodi 00:00:00 00:00:[address] 3.430.2.7 0.2.7.3.698 Ho spita .3.085840 084.8 l .8 2021-04-28 2021-04-28 Orders Istre, 1.2.840.1 [id number] 5669 Methodi 00:00:00 00:00:00 Only Shell 43126.1.[address] Doe 3.430.2.7 Hospi ta .3.453400 l .8 2021-04-17 2021-04-17 Office Istre, 1.2.840.1 [id number] 6928 Methodi 15:00:00 15:00:06 Visit Shell 24849.1.[address] Doe 3.430.2.7 Hospi ta .3.560797 l .8 2021-04-17 2021-04-17 Outpatient ARH [facility] [id number] [address] [place] [address] 00:00:00 00:00:00 SHELL [address] 2021-04-16 2021-04-16 Travel 1.2.840.1 1.2.559.639 5267 [id number] Methodi 00:00:00 00:00:[address] 3.430.2.7 0.2.7.3.698 Ho spita .3.264345 084.8 l .8 2021-04-12 2021-04-12 Emergency Svach, 1.2.840.1 [id number] 2099 [id number] Methodi 15:47:00 22:48:00 [place].1.[address] 3.430.2.7 Hospit a .3.403463 l .8 2021-04-12 2021-04-12 Emergency SVACH, [facility] 064 [id number] [address] [place] 00:00:00 00:00:[address] 2021-04-08 2021-04-08 Travel 1.2.840.1 1.2.250.687 3545 [id number] Methodi 00:00:00 00:00:[address] 3.430.2.7 0.2.7.3.698 Ho spita .3.978026 084.8 l .8 2021-03-28 2021-03-28 Office Rj Mireles [facility] [id number] [place] 08:30:00 09:30:00 Visit [facility] 2021-03-28 2021-03-28 Outpatient [facility] [id number] 68[address] [place] 00:00:00 00:00:00 [facility] 2021-03-28 2021-03-28 Outpatient [facility] [id number] [address] [place] 00:00:00 00:00:00 RJ Sutton 2021-03-14 2021-03-14 Outpatient [facility] [id number] [place] 00:00:00 00:00:00 [facility] 2021-03-03 2021-03-03 Telephone Alicia, 1.2.840.1 [id number] 2100 [id number] Methodi 11:20:00 11:48:51 Consult Shell 33610.1.[address] [place] 3.430.2.7 Hospi ta .3.605752 l .8 2021-03-03 2021-03-03 Outpatient [facility], [facility] [id number] [address] [place] 00:00:00 00:00:00 SHELL [address] 2021-02-27 2021-02-27 Travel 1.2.840.1 1.2.634.732 1663 [id number] [facility] 00:00:00 00:00:[address] 3.430.2.7 0.2.7.3.698 Ho spita .3.979100 084.8 l .8 2021-02-19 2021-02-19 Outpatient CARLY, [facility] [id number] [place] 00:00:00 00:00:00 P[address] 2021-02-17 2021-02-17 Outpatient [facility] [id number] [address] [place] 00:00:00 00:00:00 482 Method i 2021-02-17 2021-02-17 Outpatient STACI, [facility] [id number] [address] [place] 00:00:00 00:00:00 PROCTOR 706 Method i 2021-02-10 2021-02-10 Outpatient TAVARES, [facility] [id number] [address] [place] 00:00:00 00:00:00 PEGGY 856 Method i 2021-02-07 2021-02-07 Outpatient ALICIA, [facility] [id number] [address] [place] 00:00:00 00:00:00 SHELL 793 Method i 2021-01-30 2021-01-31 Outpatient IMELDA, [facility] [id number] [address] [place] 00:00:00 00:00:00 KRISTY 451 Method i 2021-01-25 2021-01-25 Emergency KENA KILLIAN [facility] [id number] 9[address]25 [place] 00:00:00 00:00:00 190 Method i 2021-01-24 2021-01-24 Outpatient CARLY, [facility] [id number] [place] 00:00:00 00:00:00 PIMPRAPA 7[address] 2021-01-09 2021-01-09 Outpatient [facility] [id number] [address] [place] 00:00:00 00:00:00 247 Method i 2020-12-29 2020-12-29 Emergency MICKEY, [facility] 064 [id number] [address] [place] 00:00:00 00:00:00 CRISTÓBAL 225 Method i 2020-12-23 2020-12-23 Outpatient PRASANTH, [facility] [id number] [address] [place] 00:00:00 00:00:00 EDDIE [address] 2020-12-11 2020-12-11 Emergency MICKEY, [facility] [id number] [address] [place] 00:00:00 00:00:00 CRISTÓBAL 030 Method i 2020-12-08 2020-12-08 Emergency HUDSON, [facility] 064 [id number] [address] [place] 00:00:00 00:00:00 TRUNG 699 Method i 2020-11-25 2020-11-26 Office Doug Estevez [facility] Encounter/ Legacy 00:00:00 00:00:00 Visit Keyon Moreauyla [id number] [facility] [id number] [facility] 2020-11-25 2020-11-26 Office Doug Estevez [facility] Encounter/ Legacy 00:00:00 00:00:00 Visit Keyon Moreauyla [id number] [facility] [id number] [facility] [facility] 2020-11-18 2020-11-18 Outpatient SMALL, [facility] [id number] [place] 00:00:00 00:00:00 PROCTOR 729 Method i 2020-11-02 2020-11-02 Emergency HALEY, [facility] [id number] 062 [place] 00:00:00 00:00:00 ROGER 241 Method i 2020-10-29 2020-10-29 Outpatient SMALL, [facility] [id number] 857 [place] 00:00:00 00:00:00 PROCTOR 983 Method i 2020-10-25 2020-10-25 Outpatient VEJPONVIRYA, [facility] [id number] [place] 00:00:00 00:00:00 PIMPRAPA 573 Metho di 2020-10-24 2020-10-24 Outpatient VESOLIS, [facility] [id number] [place] 00:00:00 00:00:00 PIMPRAPA 921 Metho di 2020-10-18 2020-10-19 Emergency HOPE, [facility] 064 [id number] 58 [place] 00:00:00 00:00:00 TRUNG 724 Method i 2020-10-18 2020-10-18 Outpatient SMALL, [facility] [id number] 110 [place] 00:00:00 00:00:00 PROCTOR 224 Method i 2020-10-11 2020-10-11 Emergency HUDSON, [facility] 064 [id number] 52 [place] 00:00:00 00:00:00 TRUNG 080 Method i 2020-10-09 2020-10-09 Outpatient PRASANTH, [facility] [id number] [place] 00:00:00 00:00:00 EDDIE 020 Method i 2020-10-01 2020-10-01 Outpatient AHMED, [facility] [id number] 980 [place] 00:00:00 00:00:00 MOHAMMAD 768 Metho di 2020-09-26 2020-09-26 Outpatient SMALL, [facility] [id number] 765 [place] 00:00:00 00:00:00 PROCTOR [address] 2020-09-13 2020-09-13 Outpatient PRASANTH, [facility] [id number] 045 [place] 00:00:00 00:00:00 EDDIE 249 Method i 2020-09-11 2020-09-11 Outpatient VEJPONGSA, [facility] [id number] [place] 00:00:00 00:00:00 PIMPRAPA 754 Metho di 2020-08-23 2020-08-23 Outpatient AHMED, [facility] [id number] 605 [place] 00:00:00 00:00:00 MOHAMMAD 132 Metho di 2020-08-19 2020-08-21 Outpatient MELTON, [facility] [id number] 265 [place] 00:00:00 00:00:00 TRUNG 187 Method i 2020-07-31 2020-08-01 Outpatient ARREDONDO, [facility] [id number] 975 [place] 00:00:00 00:00:00 RG 628 Met hodi 2020-07-16 2020-07-16 Emergency HOPE, [facility] 064 [id number] 18 [place] 00:00:00 00:00:00 TRUNG 600 Method i 2020-07-05 2020-07-05 Outpatient BROCK, [facility] [id number] [place] 00:00:00 00:00:00 [facility] 2020-07-05 2020-07-05 Emergency MICKEY, [facility] 064 [id number] 62 [place] 00:00:00 00:00:00 CRISTÓBAL 088 Method i 2020-06-28 2020-06-28 Outpatient SMALL, [facility] [id number] [place] 00:00:00 00:00:00 PROCTOR [address] 2020-06-27 2020-06-27 Outpatient PRASANTH, [facility] [id number] 221 [place] 00:00:00 00:00:00 EDDIE [address] 2020-06-24 2020-06-24 Outpatient ISTRE, [facility] [id number] [place] 00:00:00 00:00:00 SHELL 509 Method i 2020-06-19 2020-06-20 Emergency HOAHAOISM, [facility] [id number] 53 [place] 00:00:00 00:00:00 NADIM 685 Method i 2020-06-11 2020-06-11 Outpatient SMALL, [facility] [id number] 229 [place] 00:00:00 00:00:00 PROCTOR 214 Method i 2020-06-11 2020-06-11 Outpatient SMALL, [facility] [id number] 908 [place] 00:00:00 00:00:00 PROCTOR 956 Method i 2020-06-06 2020-06-06 Outpatient ISTRE, [facility] [id number] 806 [place] 00:00:00 00:00:00 SHELL 498 Method i 2020-06-03 2020-06-03 Outpatient ISTRE, [facility] [id number] 559 [place] 00:00:00 00:00:00 SHELL [address] 2020-06-03 2020-06-03 Outpatient ISTRE, [facility] [id number] 559 [place] 00:00:00 00:00:00 SHELL 363 Method i 2020-05-26 2020-05-27 Outpatient SMALL, [facility] [id number] [place] 00:00:00 00:00:00 HAYLEE 766 Method i 2020-05-24 2020-05-24 Emergency JOSSY, [facility] 064 [id number] 24 [place] 00:00:00 00:00:00 BELKIS [address] 2020-05-23 2020-05-23 Emergency FORMAN, [facility] 064 [id number] 56 [place] 00:00:00 00:00:00 TANIA [address] 2020 2020 Outpatient ISTRE, [facility] [id number] 895 [place] 00:00:00 00:00:00 SHELL 882 Method i 2020 2020 Emergency KI, [facility] 064 [id number] 65 [place] 00:00:00 00:00:00 KALIF [address] 2020-05-20 2020-05-20 Outpatient ALICIA, [facility] [id number] 407 [place] 00:00:00 00:00:00 SHELL 217 Method i 2020-05-13 2020-05-13 Outpatient JONESBURG, [facility] [id number] [place] 00:00:00 00:00:00 TRACILYN Healt h 2020-05-11 2020-05-11 Emergency HOPE, [facility] [id number] 87 [place] 00:00:00 00:00:00 TRUNG 164 Method i 2020-05-07 2020-05-07 Outpatient ROGER RICARDO [facility] [id number] [place] 07:48:18 07:48:18 Health 2020-04-15 2020-04-15 Emergency KILLIANKENA [facility] 064 [id number] [place] 00:00:00 00:00:00 597 Method i 2020-04-01 2020-04-01 Emergency KI, [facility] 064 [id number] 10 [place] 00:00:00 00:00:00 DREW 631 Method i 2020-03-23 2020-03-24 Inpatient CHRISTA, [facility] [id number] [place] 00:00:00 00:00:00 STEPHY 252 Method i 2020-03-23 2020-03-23 Emergency HOPE, [facility] 064 [id number] 79 [place] 00:00:00 00:00:00 TRUNG 603 Method i 2020-03-20 2020-03-20 Emergency ALTAGRACIA VILLASENOR [facility] 064 [id number] [place] 00:00:00 00:00:00 875 Method i 2020-02-29 2020-03-01 Emergency DE CRANDALL, [facility] 064 [id number] [place] 00:00:00 00:00:00 EMY 73Toni Me thodi 2020-02-05 2020-02-06 Emergency MORALESJAREDSALVADOR, [facility] [id number] 0668 [place] 00:00:00 00:00:00 KEM 185 Meth john 2020-02-03 2020-02-03 Emergency DE CRANDALL, [facility] [id number] 1556 [place] 00:00:00 00:00:00 EMY 451 Me thodi 2019-12-20 2019-12-21 Emergency ENE, [place] [id number] 7746 [place] 00:00:00 00:00:00 KEM 640 Meth john 2019-12-14 2019-12-14 Emergency KI, [place] [address] [id number] 06 [place] 00:00:00 00:00:00 KALIF 126 Method i 2019-12-11 2019-12-11 Emergency HOPE, [place] [address] [id number] 68 [place] 00:00:00 00:00:00 TRUNG 349 Method i 2019-12-08 2019-12-08 Emergency SUSHIL, [place] [address] [id number] 034 [place] 00:00:00 00:00:00 ISAC 449 Me thodi 2019-11-24 2019-11-24 Outpatient ROGER RICARDO [facility] [id number] [place] 00:00:00 00:00:00 [facility] 2019-11-21 2019-11-21 Emergency NELSON VILLAGRAN [facility] [id number] [place] 00:00:00 00:00:00 015 Method i 2019-11-14 2019-11-14 Outpatient ROGER RICARDO [facility] [id number] [place] 06:55:06 06:55:06 Health 2019-11-13 2019-11-13 Outpatient [facility] [id number] [place] 00:00:00 00:00:00 2019-11-10 2019-11-11 Emergency HOPE, [place] [id number] 84 [place] 00:00:00 00:00:00 TRUNG 398 Method i 2019-11-07 2019-11-07 Outpatient [facility] [id number] [place] 14:24:03 14:24:03 Health 2019-11-07 2019-11-07 Outpatient [facility] [id number] [place] 12:22:44 12:22:44 Health 2019-11-07 2019-11-07 Outpatient [facility] [id number] [place] 00:00:00 00:00:00 Health 2019-11-07 2019-11-07 Outpatient [facility] [id number] [place] 00:00:00 00:00:00 Health 2019-10-30 2019-10-30 Outpatient [facility] [id number] [place] 11:49:58 11:49:58 Health 2019-10-30 2019-10-30 Outpatient [facility] [id number] [place] 00:00:00 00:00:00 Health 2019-10-12 2019-10-12 Outpatient [facility] [id number] [place] 00:00:00 00:00:00 2019-10-10 2019-10-10 Outpatient [facility] [id number] [place] 08:15:33 08:15:33 Health 2019-10-09 2019-10-09 Outpatient [facility] [id number] [place] 00:00:00 00:00:00 2019-09-25 2019-09-25 Outpatient [facility] [id number] [place] 00:00:00 00:00:00 Health 2019-09-19 2019-09-19 Outpatient [facility] [id number] [place] 15:17:15 15:17:15 Health 2019-09-12 2019-09-12 Outpatient [facility] [id number] [place] 09:33:27 09:33:27 Health 2019-09-12 2019-09-12 Outpatient [facility] [id number] [place] 08:35:47 08:35:47 Health 2019-09-12 2019-09-12 Outpatient [facility] [id number] [place] 00:00:00 00:00:00 2019-09-09 2019-09-09 Emergency HOPE, [facility] [id number] 57 [place] 00:00:00 00:00:00 TRUNG 622 Method i 2019-08-25 2019-08-25 Outpatient [facility] [id number] [place] 06:54:32 06:54:32 Health 2019-08-24 2019-08-24 Outpatient [facility] [id number] [place] 00:00:00 00:00:00 2019-08-23 2019-08-23 Outpatient [facility] [id number] [place] 00:00:00 00:00:00 Health 2019-08-05 2019-08-05 Emergency VANDER [facility] 064 [id number] [place] 00:00:00 00:00:00 OTILIO 72Chelsea Method i KIRSTEN 2019-08-03 2019-08-03 Emergency BARRON HARDIN [facility] 064 [id number] [place] 00:00:00 00:00:[address] 2019-07-24 2019-07-24 Outpatient [facility] [id number] [place] 08:35:14 08:35:14 Health 2019-06-21 2019-06-21 Outpatient [facility] [id number] [place] 00:00:00 00:00:00 [facility] 2019-06-15 2019-06-16 Emergency HOPE, [facility] 064 [id number] 79 [place] 00:00:00 00:00:00 TRUNG Alvarez i 2019-06-15 2019-06-15 Emergency [facility] [id number] [place] 14:03:00 14:03:00 [facility] 2019-06-14 2019-06-14 Outpatient [facility] [id number] [place] 00:00:00 00:00:00 [facility] 2019-06-08 2019-06-08 Outpatient [facility] [id number] [place] 13:49:26 13:49:26 [facility] 2019-06-08 2019-06-08 Outpatient [facility] [id number] [place] 13:11:00 13:11:00 [facility] 2019-06-08 2019-06-08 Outpatient [facility] [id number] [place] 00:00:00 00:00:00 [facility] 2019-06-07 2019-06-07 Emergency [facility] [id number] [place] 12:06:12 12:06:12 [facility] 2019-06-07 2019-06-07 Emergency [facility] [id number] [place] 10:57:48 10:57:48 Health 2019-03-15 2019-03-15 Outpatient [facility] [id number] [place] 14:00:36 14:00:36 [facility] 2019-03-15 2019-03-15 Outpatient [facility] [id number] [place] 12:20:09 12:20:09 Health 2019-03-15 2019-03-15 Outpatient [facility] [id number] [place] 00:00:00 00:00:00 [facility] 2019-01-25 2019-01-25 Outpatient [facility] [id number] [place] 10:20:47 10:20:47 Health 2019-01-13 2019-01-13 Outpatient [facility] [id number] [place] 10:25:55 10:25:55 Health 2019-01-03 2019-01-03 Outpatient [facility] [id number] [place] 10:33:43 10:33:43 Health 2019-01-03 2019-01-03 Outpatient [facility] [id number] [place] 08:40:50 08:40:50 Health 2019-01-03 2019-01-03 Outpatient [facility] [id number] [place] 07:58:31 07:58:31 Health 2019-01-03 2019-01-03 Outpatient [facility] [id number] [place] 00:00:00 00:00:00 Health 2018-12-29 2018-12-29 Outpatient [facility] [id number] [place] 00:00:00 00:00:00 Health 2018-12-27 2018-12-27 Outpatient [facility] [id number] [place] 00:00:00 00:00:00 Health 2018-12-26 2018-12-26 Outpatient [facility] [id number] [place] 16:37:58 16:37:58 Health 2018-12-09 2018-12-09 Outpatient [facility] [id number] [place] 16:51:56 16:51:56 Health 2018-12-09 2018-12-09 Outpatient [facility] [id number] [place] 14:15:31 14:15:31 Health 2018-12-09 2018-12-09 Outpatient [facility] [id number] [place] 00:00:00 00:00:00 [facility] 2018-11-26 2018-11-26 Emergency [facility] [id number] [place] 16:08:40 16:08:40 [facility] 2018-01-17 2018-01-17 Outpatient E MYRNA CEDENO [facility] [id number] [facility] 12[facility]30:00 [facility] [place] 2017-12-28 2017-12-28 Outpatient E MILES [facility] [id number] [place] 10:12:00 12:25:00 PAUL [facility] [place] 2017-12-20 2017-12-20 Outpatient E MYRNA CEDENO [facility] [id number] [place] 23:13:00 23:50:00 [facility]ica [facility] [place] 2017-10-15 2017-10-15 Outpatient E SHEIKH [facility] [id number] [place] 09:57:00 11:15:00 [facility] Results Test Description Test Time Test Comments Results Result Comments Source Urine culture 2022-02-19 23:39:00 Test Item Value Reference Range Interpretation Comme nts Urine culture (test code = 3329240) SEE COMMENT Bacteriuria screen negative. [facility] [id number] 22:17:00 Test Item Value Reference Range Interpretation Comments Hepatitis B surface NON-REACTIVE NON-REACTIVE Ag (test code = 5196-1) RAC (test code = RAC) Performing Organization Information: Site ID: RGA [facility] Address: [address] [place] [id number] Director: Rajinder Grant [facility] with reflex to [id number] 22:17:00 Test Item Value Reference Range Interpretation Comments RPR (test code = NON-REACTIVE NON-REACTIVE 99999-0) RAC (test code = Performing Organization RAC) Information: Site ID: RGA [facility] Address: [address] [place] [id number] Director: Rajinder Grant [facility] C virus (HCV), quantitative [id number] 22:17:00 Test Item Value Reference Interpretation Comments Range HCV RNA, <15 NOT DETECTED NOT DETECTED quantitative PCR IU/mL (test code = 30622-9) HCV viral log <1.18 NOT DETECTED NOT DETECTED This bhupendra t was (test code = Log IU/mL performed using 87167-9) Real-Time Polym erase ChainReaction. Reportable Rang e: 15 IU/mL to 100,00 0,000 IU/mL(1.18 Log IU/mL to 8.00 Log IU/ mL). The analytical performance characteristics of thisassay have been determined by [employer]. Th e modifications h ave not been cleare d or approved bythe FDA. This assay has been validated pursu ant to the CLIA regulations and is used for clinic al purposes. For m ore information on this test, go to:http://educa tion. MDLIVE /faq/ZIY43x0(Th is link is being provided for informational/e ducat ional purposes only.) RAC (test code = Performing RAC) Organization Information: Site ID: IG [facility]: [facility] Address: [address] [place] [address] Director: Dr. Rajinder Grant [facility] C [id number] 22:17:00 Test Item Value Reference Interpretation Comments Range Hepatitis C Ab (test REACTIVE NON-REACTIVE A code = 85580-3) Signal/cutoff (test >11.00 See_Comment H Based o n this code = 07506-0) result, the sample will be testedf or HCV RNA by a Nucleic Acid Amplification T est (NAAT)to determ ine if the patient has a current activeinfection . [Automated message] The system which generated this result transmit aydin reference range : <=1.00. The reference range was not used to interpret this result as normal/abnormal . RAC (test code = Performing RAC) Organization Information: Site ID: RGA Name: [facility] Address: [address] [place] [phone] Director: Rajinder Grant Lab Interpretation Abnormal (test code = 05520-4) [facility] type 1/2 combined Ab, [id number] 22:17:00 Test Item Value Reference Interpretation Comments Range HSV 1 IgM NEGATIVE (test code = 45216-3) HSV 2 IgM NEGATIVE REFERENCE RANG E: NEGATIVE HSV (test IgM is detectab le in serum code = from >90% of [facility] 46273-5) primary HSV inf ection. However, HSV Ig M cannot bereliably used to diagnose acute/recent in fection as itis also found in 3 0% of patients with reactivate d HSV.This test may not disting uish between HSV-1 IgM andHS V-2 IgM due to cross-reactivit y. To diagnose acutegenital or mucosal HSV infection, dire ct detection froma lesion by culture or molecular metho ds is preferred.HSV I gM positivity should be confi rmed by HSV-1/2type-spe cific IgG testing. This t est was developed and i ts analytical performancechar acteristics have been deter mined by [facility] [employer] [facility].It has not been cleared or appr luis by FDA. This assay hasb een validated pursuant to the CLIA regulations and isused for clinical purpos es. RAC (test Performing code = Organization RAC) Information: Site ID: EZ Name: [facility], Address: [address] [place] [address] Director: Crista Camacho MD,PhD,BARI [facility] 1/2 antigen/antibody, fourth generation, with reflexes 2022-02-11 22:17:00 Test Item Value Reference Range Interpretation Comments HIV NON-REACTIVE NON-REACTIVE HIV-1 antigen a nd antigen/ant HIV-1/HIV-2 ant ibodies ibody 4th were notdetecte d. There gen (test is no laborator y evidence code = of HIVinfection . PLEASE 59798-9) NOTE: This info rmation has been disclo theresa peck from records wh ose confidentiality may beprotected by state law. If your state r equires suchprotection, then the state law prohi bits you frommaking any further disclosure of t he informationwith out the specific writte n consent of the personto whom it pertains, or as otherwise permitted by rodriguez ocampo.A general authori zation for the release of medical orother informa tion is NOT sufficient for this purpose. For ad ditional information ple ase refer tohttp://educat ion.[employer]/ faq/HWH267 (This link is b eing provided for informational/e ducational purposes only.) The performance of this assay has not been clinicallyvalid ated in patients less t lagunas 2 years old. RAC (test Performing code = RAC) Organization Information: Site ID: RGA [facility]: [facility] Address: [address] [place] [phone] Director: Rajinder Grant [facility] and 2 specific Ab [id number] 22:17:00 Test Item Value Reference Interpretation Comments Range HSV 1 IgG (test <0.90 index code = 5206-8) HSV 2 IgG (test index H Index code = 5209-2) Interpretatio n ----- <0.90 Negative 0.90-1 .09 Equivocal >1.09 Positive This a ssay utilizes recomb inant type-specific antigensto differentiate H SV-1 from HSV-2 infections. Apo sitive result cannot distinguish bet ween recent andpast infection. If r ecent HSV infection i s suspectedbut th e results are neg ative or equivocal, t he assayshould be repeated in 4-6 weeks. The performancechar acteri stics of the as say have not been establishedfor pediatric populations, immunocompromis ed patients,or omar lily screening. For additional information, pl natty refer to http://educatio n.Ques tDiagnostics.co m/faq/ FGY111 (This li nk is being provided for informational/e ducati onal purposes o nly.) RAC (test code = Performing RAC) Organization Information: Site ID: IG Name: [facility] Address: [address] [place] [address] Director: Dr. Rajinder Grant Lab Interpretation Abnormal (test code = 23350-8) [facility] [id number] 15:02:28 Test Item Value Reference Range Interpretation Comments Case number (test code = [id number]) Surgical pathology See link below for report (test code = PDF Lab Report 2255) Result status (test code This is Final Report = [id number]) for [id number] [facility] [id number] 22:09:28 Test Item Value Reference Interpretation Comments Range Interpretation (test Negative results do not code = 5913252) preclude COVID-19 infection and should not be used asthe sole basis for treatment or other patient management decisions. Negativeresults must be combined with clinical observations, patient history, andepidemiological information. COVID-19 qualitative Not-Detected Not-Detected RT-PCR result (test code = 17461-7) COVID-19 qualitative See link below for PDF Case Number: RT-PCR (test code = Lab Report [id number]) [facility] (COVID-19) RNA [Presence] in Respiratory specimen by LATESHA with probe [id number] 17:09:28 Test Item Value Reference Range Interpretation Comments SARS-CoV-2 (COVID-19) RNA Not detected [Presence] in Respiratory specimen by LATESHA with probe detection (test code = 60553-2) Whether patient is employed in a Unknown healthcare setting (test code = 00436-4) Whether the patient has symptoms Unknown related to condition of interest (test code = 54674-7) Whether the patient was Unknown hospitalized for condition of interest (test code = 60365-4) Whether the patient was admitted Unknown to intensive care unit (ICU) for condition of interest (test code = 04137-0) Whether patient resides in a Unknown congregate care setting (test code = 12130-9) status (test code = Unknown 50697-0) Date and time of symptom onset Unknown (test code = 02946-2) [facility] AND HPV mRNA [id number] 20:30:00 Test Item Value Reference Interpretation Comments Range Clinical information None gi niurka (test code = 25478-5) Date of last NONE GIVEN menstrual period (test code = 8665-2) Prev. pap: (test code NONE G IVEN = 99115-3) Prev. bx: (test code NONE GI NIURKA = 76316-8) Source (test code = None giv en 05622-7) Statement of adequacy Satisf actory for (test code = 78327-6) evalua tion.Endocervi cony/transformat ion zone componentpresen t.Age and/or menstrua l status not prov ided Interpretation/result Negati ve for : (test code = intraepitheli al 26900-6) lesion or malignancy. Comment (test code = This Pa p test has ) been evaluated with [employer] technology. Last Trimmer [employer] CT ( CP)CT (test code = 62861-4) screen ing location: [place] [address] [facility] 7707 2 Comment (test code = EXPLANA TORY NOTE: 9379179) The Pap is a screening test for cervical cancer . It is not a diagno stic test and is sub ject to false negati ve and false posit cole results. It is most reliable when a satisfactory sa mple, regularly obtai kady, is submitted wi th relevant clinic al findings and history, and wh en the Pap result is evaluated along with historic and cu rrent clinical information. HPV mRNA e6/e7 (test Not Detected Not Detected Methodo logy: code = 36765-3) Transcriptio n-Mediat ed Amplificatio n This assay dete cts E6/E7 viral messenger RNA ( mRNA) from 14high-ris k HPV types (16,18,31,33,35 ,39,4 5,51,52,56,58,5 9,66, 68). Cervical sources are req uired for HPV testing .If a vaginal source from a patient who h as had atotal hysterectomy wi th removal of cerv ix was submitted, please contact the testing laboratoryfor alternative bhupendra ting options. For additional information, pl ease refer tohttp://educat ion.BaseKit/ faq/DLU304a0(Th is link if provide d for information/edu catio nal purposes on ly.) RAC (test code = RAC) Performing Organization Information: Site ID: IG Name: [facility] Address: [address] [place] [address] Director: Dr. Rajinder Grant Site ID: RGA Name: [facility] Address: [address] [place] [address] Director: Rajinder Grant [facility] 12 [id number] 18:14:37 Test Item Value Reference Range Interpretation Comments Ventricular rate (test code = 253) Atrial rate (test code = 255) [place] interval (test code = 266) QRSD interval (test code = 260) QT interval (test code = 264) QTC interval (test code = 265) P axis 1 (test code = 267) QRS axis 1 (test code = 268) T wave axis (test code = 270) EKG impression (test Normal sinus code = 273) rhythm-Normal ECG-In automated comparison with ECG of 07-NOV-2021 12:57,-No significant change was found- [facility] RNA [Presence] in Respiratory specimen by LATESHA with probe [id number] 21:57:49 Test Item Value Reference Range Interpretation Comments SARS-CoV-2 (COVID-19) RNA [Presence] Detected in Respiratory specimen by LATESHA with probe detection (test code = 54905-7) Whether patient is employed in a Unknown healthcare setting (test code = 69163-4) Whether the patient has symptoms Unknown related to condition of interest (test code = 21892-1) Whether the patient was hospitalized Unknown for condition of interest (test code = 34933-6) Whether the patient was admitted to Unknown intensive care unit (ICU) for condition of interest (test code = 18806-7) Whether patient resides in a Unknown congregate care setting (test code = 56656-2) status (test code = Unknown 86058-2) Date and time of symptom onset (test Unknown code = 51259-3) [facility] [id number] 18:40:00 Test Item Value Reference Range Interpretation Comments Protein (test code 6.6 g/dL 6.1-8.1 = 2885-2) Albumin, S (test 4.1 g/dL 3.6-5.1 code = 1751-7) Globulin, total See_Comment [Automated (test code = message] The ) system which generated this result transmitted reference range : 1.9 - 3.7 g/dL (calc). The reference range was not used to interpret this result as normal/abnormal . Albumin/globulin See_Comment [Automated ratio (test code = message] The ) system which generated this result transmitted reference range : 1.0 - 2.5 (calc ). The reference range was not used to interpr et this result as normal/abnormal . Total bilirubin 0.5 mg/dL 0.2-1.2 (test code = 1974-05) Bilirubin direct 0.1 mg/dL See_Comment [Automated (test code = message] The 1967-10) system which generated this result transmitted reference range : < OR = 0.2. The reference range was not used to interpret this result as normal/abnormal . Bilirubin, See_Comment [Automated indirect (test message] The code = 1970-04) system which generated this result transmitted reference range : 0.2 - 1.2 mg/dL (calc). The reference range was not used to interpret this result as normal/abnormal . Alkaline 46 U/L 37-153 phosphatase (test code = 6768-6) AST (test code = 13 U/L -35 1919-8) ALT (test code = 14 U/L 10-08-6) WILDA (test code = FASTING: UNKNOWN WILDA) RAC (test code = Performing RAC) Organization Information: Site ID: RGA [facility] Address: [address] [place] [address] Director: [facility]inder L [facility] RNA [Presence] in Respiratory specimen by LATESHA with probe [id number] 20:46:09 Test Item Value Reference Range Interpretation Comments SARS-CoV-2 (COVID-19) RNA Not detected [Presence] in Respiratory specimen by LATESHA with probe detection (test code = 73257-7) Whether patient is employed in a Unknown healthcare setting (test code = 72617-0) Whether the patient has symptoms Unknown related to condition of interest (test code = 78003-0) Whether the patient was Unknown hospitalized for condition of interest (test code = 72970-6) Whether the patient was admitted Unknown to intensive care unit (ICU) for condition of interest (test code = 71388-0) Whether patient resides in a Unknown congregate care setting (test code = 19645-6) status (test code = Unknown 55135-9) Date and time of symptom onset Unknown (test code = 37508-1) [facility] [id number] 05:23:00 Test Item Value Reference Range Interpretation Comments TSH (test code mIU/L Reference Ra nge > = 3016-3) or = 20 Years 0.40-4.50 Range s First trimester 0.26-2.66 Secon d trimester 0.55-2.73 Third trimester 0.43-2.91 RAC (test code Performing = RAC) Organization Information: Site ID: RGA [facility] Address: [address] [place] [address] Director: Rajinder Grant [facility] RFLX MICR CULT IF [id number] 18:48:00 Test Item Value Reference Range Interpretation Comments UA COLOR (test code Yellow Yellow = COLU) UA APPEARANCE (test Slightly-Cloudy Clear code = APPU) UA GLUCOSE DIPSTICK Negative Negative (test code = DGLUU) UA BILIRUBIN Negative Negative DIPSTICK (test code = BILU) UA KETONE DIPSTICK Negative mg/dL Negative (test code = KETU) UA SPECIFIC GRAVITY 1.018 <1.030 (test code = SGU) UA BLOOD DIPSTICK 2+ Negative A (test code = SUKHI) UA PH DIPSTICK (test 5.0 5.0-8.0 code = LUIS) UA PROTEIN DIPSTICK NEGATIVE mg/dL Negative (test code = PROU) UA UROBILINOGEN 2.0 mg/dL Negative A DIPSTICK (test code = URO) UA NITRITE DIPSTICK Negative Negative (test code = THIAGO) UA LEUKOCYTE 1+ Negative A ESTERASE DIPSTICK (test code = LEUU) UA WBC (test code = 21-30 /HPF See_Comment A >10 WBC/ HPF = WBCUR) PYURIA PRESENT URINE CULTURE PROCESSED [Automated message] The system which generated this result transmit aydin reference range : <4-5. The reference range was not used to interpret this result as normal/abnormal . UA RBC (test code = 11-20 /HPF See_Comment A [Automa aydin RBCU) message] The system which generated this result transmit aydin reference range : <4-5. The reference range was not used to interpret this result as normal/abnormal . UA BACTERIA (test None /HPF None-Rare code = BACU) UA SQUAMOUS CELLS 6-15 (FEW) /HPF See_Comment A [Autom ated (test code = SQU) message] T he system which generated this result transmit aydin reference range : 0-5 (RARE). The reference range was not used to interpret this result as normal/abnormal . UA MUCUS (test code 2+ /LPF See_Comment A [Automa aydin = MUCU) message] The system which generated this result transmit aydin reference range : <Rare. The reference range was not used to interpret this result as normal/abnormal . Indication for culture: Flank PainSOURCE OF URINE: CLEAN CATCHLACTIC ACID 2021-08-08 15:15:00 Test Item Value Reference Range Interpretation Comments LACTIC ACID (test code = LACT) 0.7 mmol/L 0.7-2.0 N LIVER FUNCTION [id number] 15:14:00 Test Item Value Reference Range Interpretation Comments TOTAL PROTEIN (test 7.1 g/dL 6.3-8.2 N code = PROT) "A positive bias may occur for patients taking Eltrombopag(a b one marrow stimulan t used to treat thrombocy topenia andaplastic anemia)." ALBUMIN (test code = 4.1 g/dL 3.5-5.0 N ALB) BILIRUBIN TOTAL 0.2 mg/dL 0.2-1.3 N "A positive bias may (test code = BILT) occur for patients taking Eltrombo pag(a bone marrow sti mulant used to treat thrombocytopeni a andaplastic ane constantin)." BILIRUBIN CONJUGATED 0 mg/dL 0-0.3 N "A posi tive bias may (test code = BILCON) occur f or patients taking Eltrombo pag(a bone marrow sti mulant used to treat thrombocytopeni a andaplastic ane constantin)." CON JUGATED BILIRUBIN IS TH E REPLACEMENT ASS AY FOR DIRECTBILIRUBIN . BILIRUBIN 0.1 mg/dL 0-1.1 N UNCONJUGATED (test code = BILUNC) SGOT/AST (test code 29 U/L 15-46 N = AST) SGPT/ALT (test code 19 U/L 0-34 N = ALT) ALKALINE PHOSPHATASE 56 U/L 38-126 N (test code = ALKP) [id number] 15:14:00 Test Item Value Reference Range Interpretation Comments TROPONIN-I < 0.012 ng/mL 0.012-0.033 L (test code = TROPI) Please be advised of the updated ref erence ranges for the new Chemistry instrumentation . VITROS TROPO MAGDALENE I CRITERIANORM AL PATIENT W/O CIRCULATING TNI: 0.012-0.033 ng/mLCIRCULATIN G TNI PRESENT: 0.034- 0.119 ng/mL(MAY BE AT RISK OF AMI)AMI DIAGNOS TIC CUTOFF: >/= 0.120 ng/mL~~~~~~~~~~ ~~~~~~~~~~~~ ~~~~~~~~~~~~~~~ ~~~~~~~~~~~~ ~~~~~~~~~~The u se of serial sampling and te sting protocol is are commended practice.An martin vated troponin level alone is often not suffi cient fordiagnosis of myocardial infarction. Tro ponin results obtaine d by different assay s may vary.Evaluation of the extent of myoca rdial damage based onincreas e of troponin would be valid only if similar methodology is used.~~~~~~~~~~ ~~~~~~~~~~~~ ~~~~~~~~~~~~~~~ ~~~~~~~~~~~~ ~~~~~~~~~~ A PO SITIVE BIAS MAY OCCUR FOR P ATIENTS TAKING BIOTIN SUPPLEMENTS~~~~ ~~~~~~~~~~~~ ~~~~~~~~~~~~~~~ ~~~~~~~~~~~~ ~~~~~~~~~~~~~~~ ~ BASIC METABOLIC [id number] 15:14:00 Test Item Value Reference Range Interpretation Comments SODIUM (test code = 141 mmol/L 137-145 N NA) POTASSIUM (test 4.1 mmol/L 3.4-5.0 N code = K) CHLORIDE (test code 110 mmol/L 98-107 H = CL) CARBON DIOXIDE 21 mmol/L 22-30 L (test code = CO2) ANION GAP (test 15 code = GAP) GLUCOSE (test code 109 mg/dL 74-106 H = GLU) BLOOD UREA NITROGEN 10 mg/dL 7-17 N (test code = BUN) GLOMERULAR 112 >60 The estimated FILTRATION RATE glomerular f iltration (test code = GFR) rate is co mputed usingpatient ra ce, age (>18), sex, and serum creatinin e. If anyof the neede d data elements are mi ssing the Laboratory cannot compute an brandon mation of the glomerul ar filtration rate . CREATININE (test 0.6 mg/dL 0.5-1.0 N code = CREAT) CALCIUM (test code 9.1 mg/dL 8.4-10.2 N = CA) INDEX HEMOLYSIS < 15 Index/DL 0-100 N (test code = HEMINDEX) - CT ABD PELVIS W/O [id number] 14:53:00 [facility] 1970 Sex: F FAX: Debo Gutierrez [place]: St: REG Name: [facility] : 1970 Age/S: 51/F [address] Unit: [id number] Loc: [place] [address] Phys: Debo Gutierrez Acct: [id number] Dis Date:Status: REG ER PHONE #: [phone] Exam Date: 08/08/2021 1435 FAX #: [phone] Reason: flank pain EXAMS: CPT CODE: [id number] CT ABD PELVIS W/O CONT 83398 EXAM: CT abdomen and pelvis without contrast HISTORY: 51 years -old Female with flank pain ADMITTING DIAGNOSIS: Chills, fever, low back pain, kidney stone LOCATION CODE: C3 TECHNIQUE: Contrast - No IV contrast was given . Noncontrast phase - abdomen and pelvis Reconstructions - coronal and sagittal planes One or more of the following dose reduction techniques were used: Automated exposure control, adjustment of the mA and/or kV according topatient size, and/or utilization of iterative reconstruction technique. Total Exam DLP : 765 mGy/cm CTDI vol: 14 mGy COMPARISON: None FINDINGS: Statements: Lack of intravenous contrast compromises evaluation of solid organs and vasculature. Thoracic: Included images of the lower chest demonstrate no abnormalities. Hepatobiliary: The liver is unremarkable without focal lesion. The gallbladder is unremarkable. Pancreas: No abnormality identified in the pancreas. Spleen: No abnormality identified in the spleen. Adrenals: No abnormality identified in either adrenal gland. Genitourinary: Right kidney : The kidneys are normal. No hydronephrosis. no nephrolithiasis Left kidney: The kidneys are normal. Nohydronephrosis there is a punctated calcification at the mid to lower aspect compatible with PAGE 1 Signed Report (CONTINUED) FAX: Debo Gutierrez [place]: St: REG [facility] [place] : 1970 Age/S: 51/F [address] Unit: [id number] Loc: [place] [address] Phys: Debo Gutierrez Acct: [id number] Dis Date: Status: REG ER PHONE #: [phone] Exam Date: 08/08/2021 1435 FAX #: Reason: flank pain EXAMS: CPT CODE: [id number] CT ABD PELVIS W/O CONT 75866 (Continued) nephrolithiasis . Evaluation of the bladder is limited, but no obvious bladder abnormality is present. Organs of Reproduction: Not well assessed due to the lack of IV contrast, though no gross abnormalities are identified. Although, there is evidence of mild fatty stranding surrounding the adnexa and uterus suggest presence of pelvic inflammatory disease. Gastrointestinal: No evidence of bowel obstruction or perienteric inflammation. The appendix is normal. Vascular: The vessels are not well assessed due to the lack of IV contrast, though no gross abnormality is identified. Lymph nodes: No enlarged lymph nodes by CT size criteria. Bones/Soft Tissues: No concerning bony lesion identified. No ventral hernias. Peritoneum/Other: No extraluminal air. No extraluminal fluid. IMPRESSION: 1. Left nephrolithiasis. No hydronephrosis. No obstructive uropathy. 2. No free fluid, or free air. 3. Findings suggest pelvic inflammatory disease. RECOMMENDATIONS: None. Internal Coding only:B3 at 1453 Reported and signed by: Sandro Molina MD PAGE 2 Signed Report (CONTINUED) FAX: Debo Gutierrez [place]: St: REG Name: [facility] : 1970 Age/S: 51/F [address] Unit: [id number] Loc: [place] [address] Phys: Debo Gutierrez Acct: [id number] Dis Date: Status: REG ER PHONE #: [phone] Exam Date: FAX #: [phone] Reason: flank pain EXAMS: CPT CODE: [id number] CT ABD PELVIS W/O CONT 56238(Continued) CC: Debo Gutierrez Technologist: Debo Ortiz; SCOTT BENAVIDES Trnscrd Dt/Tm: 08/08/2021 (9193) t.VIANCAR.HPD Orig Print D/T: S: 08/08/2021 (1906 PAGE 3 Signed ReportCBC W/AUTO [id number] 14:21:00 Test Item Value Reference Range Interpretation Comments WHITE BLOOD CELL (test code = 9.2 x10 3/uL 5.0-12.0 N WBC) RED BLOOD CELL (test code = 4.46 x10 6/uL 4.20-5.40 N RBC) HEMOGLOBIN (test code = HGB) 13.5 g/dL 12.0-16.0 N HEMATOCRIT (test code = HCT) 40.0 % 36.0-46.0 N MEAN CELL VOLUME (test code = 90 fL 81-99 N MCV) MEAN CELL HGB (test code = MCH) 30.3 pg 27-31 N MEAN CELL HGB CONCENTRATION 33.8 g/dL 33-37 N (test code = MCHC) RED CELL DISTRIBUTION WIDTH 14.3 % 11.5-15.5 N (test code = RDW) PLATELET COUNT (test code = 224 x10 3/uL 130-400 N PLT) MEAN PLATELET VOLUME (test code 9.6 fL 9.4-16.4 N = MPV) NEUTROPHIL % (test code = NT%) 73.1 % 43-65 H IMMATURE GRANULOCYTE % (test 0.3 % 0.0-2.0 N code = IG%) LYMPHOCYTE % (test code = LY%) 15.8 % 20.5-45.5 L MONOCYTE % (test code = MO%) 9.8 % 5.5-11.7 N EOSINOPHIL % (test code = EO%) 0.7 % 0.9-2.9 L BASOPHIL % (test code = BA%) 0.3 % 0.2-1.0 N NUCLEATED RBC % (test code = 0.0 % 0-1.0 N NRBC%) NEUTROPHIL # (test code = NT#) 6.69 x10 3/uL 2.2-4.8 H IMMATURE GRANULOCYTE # (test 0.03 x10 3/uL 0-0.03 N code = IG#) LYMPHOCYTE # (test code = LY#) 1.45 x10 3/uL 1.3-2.9 N MONOCYTE # (test code = MO#) 0.90 x10 3/uL 0.3-0.8 H EOSINOPHIL # (test code = EO#) 0.06 x10 3/uL 0.0-0.2 N BASOPHIL # (test code = BA#) 0.03 x10 3/uL 0.0-0.1 N - XR CHEST 1 [id number] 13:50:00 [facility] : 1970 Sex: F FAX: Debo Gutierrez [place]: St: PRE Name: [facility]ACK[facility] : 1970 Age/S: 51/F [address] Unit #: [id number] Loc: [place] [address] Phys: Debo Gutierrez Acct: [id number] Dis Date: Status: PRE ER PHONE #: [phone] Exam Date: 08/08/2021 1340 FAX #: [phone] Reason: CODE SEPSIS EXAMS: CPT CODE: [id number] XR CHEST 1 V 85798 CHEST 1 VIEW: INDICATION: CODE SEPSIS COMPARISON: There are no prior studies for comparison. Location: T 18 A single portable AP view of the chest demonstrates a normal cardiomediastinal silhouette. The lung flores are clear. No apparent pleural effusion nor pneumothorax. Changes of cervical spine surgery are noted. IMPRESSION: 1. No acute cardiopulmonary findings seen. at 1350 Reported and signed by: Camden Saravia MD CC: Debo Gutierrez Technologist: NAY GILLIS; STUDENT 2ND YEAR Trnscrd Date/Time/By: 08/08/2021 (0870) : By: [email or web address] PAGE 1 Signed Report FAX: Debo Gutierrez [place]: St: PRE -- Name: [facility] : 1970 Age/S: 51/F [address] Unit #: [id number] Loc:[place] [address] Phys: Debo Gutierrez Acct: [id number] Dis Date: Status: PRE ER PHONE #: [phone] Exam Date: 08/08/2021 1340 FAX #: [phone] Reason: CODE SEPSIS EXAMS: CPT CODE: [id number] XR CHEST 1 V 57383 (Continued) Orig Print D/T: S: 08/08/2021 (6272) PAGE 2 Signed ReportTHINPREP TIS PAP AND HPV mRNA E6/E7 REFLEX HPV 16,18/45 2021-06-19 18:43:00 Test Item Value Reference Interpretation Comments Range Clinical information None gi niurka (test code = 69679-3) Date of last NONE GIVEN menstrual period (test code = 8665-2) Prev. pap: (test code NONE G IVEN = 72480-8) Prev. bx: (test code NONE GI NIURKA = 42343-2) Source (test code = None giv en 80328-9) Statement of adequacy Satisf actory for (test code = 10846-3) evalua tion.Endocervi cony/transformat ion zone componentpresen t.Age and/or menstrua l status not prov ided Interpretation/result Negati ve for : (test code = intraepitheli al 60262-4) lesion or malignancy. Comment (test code = This Pa p test has ) been evaluated with computerassiste d technology. Review PMT, CT(ASCP)CT steam flattener screening l ocation: (test code = 47081-0) [facility] [address], [place] [address] Comment (test code = EXPLANA TORY NOTE: 5679618) The Pap is a screening test for cervical cancer . It is not a diagno stic test and is sub ject to false negati ve and false posit cole results. It is most reliable when a satisfactory sa mple, regularly obtai kady, is submitted wi th relevant clinic al findings and history, and wh en the Pap result is evaluated along with historic and cu rrent clinical information. HPV mRNA e6/e7 (test Not Detected Not Detected Methodo logy: code = 30871-9) Transcriptio n-Mediat ed Amplificatio n This assay dete cts E6/E7 viral messenger RNA ( mRNA) from 14high-ris k HPV types (16,18,31,33,35 ,39,4 5,51,52,56,58,5 9,66, 68). The analyt ical performance characteristics of thisassay have been determined by [employer].The modifications h ave not been cleare d or approvedby the FDA. This assay has been validated pursu antto the CLIA regula tions and is used forclinical purposes. For additional information, pl ease refer tohttp://educat ion.q ChoicePass .YouOS/ faq/KWN198c4(Th is link if provide d for information/edu catio nal purposes on ly.) RAC (test code = RAC) Performing Organization Information: Site ID: IG Name: [facility] Address: [address] [place] [address] Director: Dr. Rajinder Grant Site ID: RGA Name: [facility] Address: [address] [place] [address] Director: Rajinder Grant [facility], COMPLETE, WITH REFLEX TO [id number] 09:37:00 Test Item Value Reference Interpretation Comments Range Color, UA (test code YELLOW YELLOW = 5778-6) Appearance (test CLEAR CLEAR code = 5767-9) Specific gravity, 1.001-1.035 urine (test code = 5811-5) pH, urine (test code 5.0-8.0 = 5803-2) Glucose, urine (test NEGATIVE NEGATIVE code = 63801-5) Bilirubin, UA (test NEGATIVE NEGATIVE code = 5770-3) Ketones, UA (test NEGATIVE NEGATIVE code = 2514-8) Occult blood, urine NEGATIVE NEGATIVE (test code = 5794-3) Protein, UA (test NEGATIVE NEGATIVE code = 71316-6) Nitrite, UA (test NEGATIVE NEGATIVE code = 5802-4) Leukocyte esterase, TRACE NEGATIVE A UA (test code = 5799-2) WBC, UA (test code = NONE SEEN See_Comment [Autom ated 5821-4) message] The sy stem which generated this result transmitted reference range : < OR = 5 /HPF. Th e reference range was not used to interpret this result as normal/abnormal . RBC, UA (test code = NONE SEEN See_Comment [Autom ated 11397-1) message] The sy stem which generated this result transmitted reference range : < OR = 2 /HPF. Th e reference range was not used to interpret this result as normal/abnormal . Squamous epithelial NONE SEEN See_Comment [Automa aydin cells, UA (test code message ] The system = 72746-2) which generated this result transmitted reference range : < OR = 5 /HPF. Th e reference range was not used to interpret this result as normal/abnormal . Bacteria, UA (test NONE SEEN NONE SEEN /HPF code = 5769-5) Hyaline casts, UA NONE SEEN NONE SEEN /LPF (test code = 5796-8) Urine culture (test SEE NOTE A CULTURE , URINE, code = 630-4) ROUTINE Micro Number: [id number] Test Status: Fi nal Specimen Source : Urine Specimen Quality: Adequa te Result: 1,000-9 ,000 CFU/ML of Group B Streptococcus isolated Beta-hemolytic streptococci ar e predictably susceptible to Penicillin and other beta-lact ams. Susceptibility testing not routinely performed. Ple ase contact the laboratory with in 3 days if susceptibility testing is francois red. Any amount of g roup B Streptococcus in urine specimen s obtained from female s is a marker of gen ital tract colonizat ion. If this patient is , pleas e refer to ACOG guidelines for appropriate screening and management of women. Comment: Erythromycin an d clindamycin are not recommended for treatment of urinary tract infections, but clindamycin may be useful for treatment in penicillin dusty rgic patients for rectovaginal colonization or for intrapartum prophylaxis if indicated. RAC (test code = Performing RAC) Organization Information: Site ID: RGA [facility] Address: [address] [place] [address] Director: Rajinder Grant Lab Interpretation Abnormal (test code = 69369-2) [facility] urinalysis [id number] 18:20:00 Test Item Value Reference Range Interpretation Comments Color urine, POC (test Straw code = 3323399) Clarity urine, POC (test Clear code = 4180818) Glucose urine, POC (test Negative Negative code = 2475302) Bilirubin urine, POC Negative Negative (test code = 3140148) Ketones urine, POC (test Negative Negative code = 2934480) Specific gravity urine, 1.005-1.030 POC (test code = 1108999) Blood urine, POC (test Trace Negative A code = 0819580) pH urine, POC (test code See_Comment [A utomated message] = 7761438) The system [employer] generated this result transmitted ref erence range: 5.0, 5.5 , 6.0, 6.5, 7.0, 7.5, 8.0, 8.5. The refere nce range was not u sed to interpret this result as normal/abnor mal. Protein urine, POC (test Negative Negative code = 1824613) Urobilinogen urine, POC <2.0 See_Comment [Au tomated message] (test code = 5002553) The sy stem which generated this result transmitted ref erence range: <=2.0. T he reference range was not used to int erpret this result as normal/abnormal . Nitrite urine, POC (test Negative Negative code = 4865739) Leukocyte esterase Negative Negative urine, POC (test code = 6286826) Lab Interpretation (test Abnormal code = 17072-2) Confucianist CtncjltzHJRT-PvS-6 (COVID-19) RNA [Presence] in Respiratory specimen by LATESHA with probe [id number] 09:55:01 Test Item Value Reference Range Interpretation Comments SARS-CoV-2 (COVID-19) RNA Not detected Not-Detected [Presence] in Respiratory specimen by LATESHA with probe detection (test code = 19542-1) Whether patient is employed in a healthcare setting (test code = 57227-7) Whether the patient has symptoms related to condition of interest (test code = 80287-4) Patient was hospitalized because of this condition (test code = 88742-9) Whether the patient was admitted to intensive care unit (ICU) for condition of interest (test code = 20857-7) Whether patient resides in a congregate care setting (test code = 04010-8) [facility]19) RNA [Presence] in Respiratory specimen by LATESHA with probe [id number] 03:07:44 Test Item Value Reference Range Interpretation Comments SARS-CoV-2 (COVID-19) RNA Not detected Not-Detected [Presence] in Respiratory specimen by LATESHA with probe detection (test code = 80717-5) Whether patient is employed in a healthcare setting (test code = 80240-4) Whether the patient has symptoms related to condition of interest (test code = 55866-3) Patient was hospitalized because of this condition (test code = 15221-5) Whether the patient was admitted to intensive care unit (ICU) for condition of interest (test code = 95955-8) Whether patient resides in a congregate care setting (test code = 83741-4) [facility]-CoV-2 (COVID-19) RNA [Presence] in Respiratory specimen by LATESHA with probe [id number] 02:34:50 Test Item Value Reference Range Interpretation Comments SARS-CoV-2 (COVID-19) RNA Not detected Not-Detected [Presence] in Respiratory specimen by LATESHA with probe detection (test code = 02604-1) Whether patient is employed in a healthcare setting (test code = 13491-3) Whether the patient has symptoms related to condition of interest (test code = 88884-3) Patient was hospitalized because of this condition (test code = 82023-6) Whether the patient was admitted to intensive care unit (ICU) for condition of interest (test code = 35155-8) Whether patient resides in a congregate care setting (test code = 87315-7) [facility]-CoV-2 (COVID-19) RNA [Presence] in Respiratory specimen by LATESHA with probe [id number] 22:46:50 Test Item Value Reference Range Interpretation Comments SARS-CoV-2 (COVID-19) RNA Not detected Not-Detected [Presence] in Respiratory specimen by LATESHA with probe detection (test code = 72781-2) [facility]-CoV-2 (COVID-19) RNA [Presence] in Respiratory specimen by LATESHA with probe [id number] 10:19:38 Test Item Value Reference Range Interpretation Comments SARS-CoV-2 (COVID-19) RNA Not detected Not-Detected [Presence] in Respiratory specimen by LATESHA with probe detection (test code = 06934-2) [facility]-CoV-2 (COVID-19) RNA [Presence] in Respiratory specimen by LATESHA with probe [id number] 00:17:03 Test Item Value Reference Range Interpretation Comments SARS-CoV-2 (COVID-19) RNA Not detected Not-Detected [Presence] in Respiratory specimen by LATESHA with probe detection (test code = 75998-4) [facility]-CoV-2 (COVID-19) RNA [Presence] in Respiratory specimen by LATESHA with probe [id number] 00:59:15 Test Item Value Reference Range Interpretation Comments SARS-CoV-2 (COVID-19) RNA Not detected Not-Detected [Presence] in Respiratory specimen by LATESHA with probe detection (test code = 63004-8) [facility]2018-01-18 08:12:00 Test Item Value Reference Range Interpretation Comments SODIUM (test code = RADHA) 140 mmol/L 138-146 POTASSIUM (test code = KI) 7.3 mmol/L 3.5-4.9 HH CHLORIDE (test code = CLI) 108 mmol/L 98-109 CA IONIZED (test code = ICAI) 1.16 mmol/L 1.12-1.32 GLUCOSE (test code = GLUI) 102 mg/dL 75-100 H TCO2 (test code = TCO2) 26 mmol/L 24-29 BUN (test code = BUN1) 15 mg/dL 8-26 CREATININE (test code = CREAI) 0.5 mg/dL 0.6-1.3 L ANION GAP (test code = GANG) 14.0 mmol/L HGB (test code = MHB) 15.6 g/dL 12.0-17.0 HCT (test code = MHCT) 46.0 % 38.0-51.0 BRAIN NATRIURETIC PROTEIN OW2018-01-17 12:21:00 Test Item Value Reference Range Interpretation Comments BNP (test code = OBNP) 46 pg/mL 0-50 TROPONIN I i-STAT OW2018-01-17 11:54:00 Test Item Value Reference Range Interpretation Comments TROPONIN I (test code = A84) 0.000 ng/mL 0.000-0.045 CBC (INCLUDES AUTOMATED DIFFERENTIAL) *2018-01-17 11:33:00 Test Item Value Reference Range Interpretation Comments WBC (test code = WBC) 6.1 10\\S\\3/uL 4.5-11.0 RBC (test code = RBC) 4.74 10\\S\\6/uL 4.20-5.60 HGB (test code = HBG) 14.5 g/dL 12.0-15.5 HCT (test code = HCT) 43.8 % 35.0-44.0 MCV (test code = MCV) 92.5 fL 81.0-99.0 MCH (test code = MCH) 30.6 pg 27.0-31.0 MCHC (test code = MCHC) 33.1 g/dL 32.0-36.0 RDW (test code = RDW) 14.6 % 11.5-14.5 H PLT (test code = PLT) 239 10\\S\\3/uL 130-400 MPV (test code = OMPV) 8.0 fL 6.2-10.2 NEUTROP # (test code = NE#) 3.6 10\\S\\3/uL 1.6-8.0 LYMPH # (test code = LY#) 1.6 10\\S\\3/uL 1.1-3.5 MID # (test code = GMID#) 0.9 10\\S\\3/uL 0.0-1.1 GRA % (test code = GRA%) 59.4 % 35.0-73.0 LYMPH % (test code = GLY%) 26.4 % 20.0-55.0 MID % (test code = GMID%) 14.2 % 0.0-10.[address] STONE PROTOCOL STUDY *OW*2017-12-28 11:34:51CT ABDOMEN AND PELVIS WITHOUT CONTRAST, RENAL STONE PROTOCOL:Location code: [id number] HISTORY: Flank painCOMPARISON: CT abdomen and pelvis dated 10/15/17TECHNIQUE: Helical CT of the abdomen and pelviswas performed withoutcontrast. Thin section axial, sagittal and coronal images were obtained. Oneor more of the following dose reduction techniques were used: Automatedexposure control, adjustment of the mA and or KV according to patient size,and/or utilization of iterative reconstruction technique. DLP: 1093.13 mGy-cm.FINDINGS: 3 mm nonobstructing stone in the lower pole the left kidney. No other renalstones. No masses or hydronephrosis.The visualized lung bases are clear. The unenhanced liver, gallbladder,adrenals, pancreas, and spleen are unremarkable.The unopacified loops of bowel demonstrate no focal thickening or dilatation.No thickened appendix. There is no free intraperitoneal air or fluid. The abdominal aorta is normal in caliber and contour. There is noretroperitoneal adenopathy or mass. The urinary bladder is unremarkable.There is no pelvic mass or fluid collection. Mild degenerative c hanges are present throughout the spine. The skin andsurrounding soft tissues are unremarkable. IMPRESSION:1. 3 mm nonobstructing stone in the lower pole of the left kidney withoutinterval change.2. Mild diffuse spondylosis of the lumbar spine.URINALYSIS W/O MICROSCOPICOW2017-12-28 10:54:00 Test Item Value Reference Range Interpretation Comments COLOR (test code = [place] YELLOW A COLU) CLARITY (test code = Cloudy CLEAR CLA) GLUCOSE UR (test Negative NEGATIVE code = UA GLUCOSE) BILI UR (test code = 1+ NEGATIVE A BILE) KETONES UR (test Negative NEGATIVE code = GUILLERMINA) SP GRAVITY (test 1.015 1.005-1.030 code = SPGR) PH UR (test code = 7.0 4.5-8.0 PH) PROTEIN UR (test 2+ NEGATIVE A code = PU) NITRITE UR (test Negative NEGATIVE code = NITRITE) UROBIL UR (test code 0.2 E.U./dL = GUROQ) UROBIL UR (test code UROBILINOGEN = GUROQC) REFERENCE RANGE 0.2 - 1.0 EU/dL BLOOD UR (test code 3+ NEGATIVE A = UA BLOOD) LEUK ES UR (test Negative NEGATIVE code = LEUK) URINE OW2017-12-21 00:33:00 Test Item Value Reference Range Interpretation Comments PREG UR (test code = PGU) Negative NEGATIVE URINALYSIS W/O MICROSCOPICOW2017-12-20 23:32:00 Test Item Value Reference Range Interpretation Comments COLOR (test code = Red YELLOW A COLU) CLARITY (test code = Cloudy CLEAR CLA) GLUCOSE UR (test Trace NEGATIVE code = UA GLUCOSE) BILI UR (test code = 3+ NEGATIVE A BILE) KETONES UR (test 2+ NEGATIVE A code = GUILLERMINA) SP GRAVITY (test 1.015 1.005-1.030 code = SPGR) PH UR (test code = 5.0 4.5-8.0 PH) PROTEIN UR (test 3+ NEGATIVE A code = PU) NITRITE UR (test Positive NEGATIVE code = NITRITE) UROBIL UR (test code 4.0 E.U./dL = GUROQ) UROBIL UR (test code UROBILINOGEN = GUROQC) REFERENCE RANGE 0.2 - 1.0 EU/dL BLOOD UR (test code 3+ NEGATIVE A = UA BLOOD) LEUK ES UR (test 3+ NEGATIVE A code = LEUK) CT ABDOMEN AND PELVIS WITH CONTRAST *OW*2017-10-15 11:03:05CT abdomen and pelvis with contrastLocation Code: [id number] HISTORY: Lower abdominal painCOMPARISON: NoneTechnique: Helical CT of the abdomen and pelvis was performed following theadministration of intravenous contrast. Thin section axial, sagittal andcoronal images were obtained. Automatic exposure control was utilized. TotalDLP: 1523.59 mGycmFINDINGS:The lung bases are clear. The liver, gallbladder , adrenal glands, kidneys, pancreas, and spleen areunremarkable.The unopacified loops of bowel demonstrate no focal thickening or dilatation.The appendix is visualized and is normal. There is no free peritoneal air orfluid. The abdominal aorta is normal in caliber and contour. There is noretroperitoneal mass or fluid collection. The urinary bladder is unremarkable.There is no pelvic mass or fluid collection. The bones, skin, and surrounding soft tissues are unremarkable.IMPRESSION: No acute intra-abdominal or pelvic abnormality. URINALYSIS W/O MICROSCOPICOW2017-10-15 10:36:00 Test Item Value Reference Range Interpretation Comments COLOR (test code = Yellow YELLOW COLU) CLARITY (test code = Clear CLEAR CLA) GLUCOSE UR (test Negative NEGATIVE code = UA GLUCOSE) BILI UR (test code = Negative NEGATIVE BILE) KETONES UR (test Negative NEGATIVE code = GUILLERMINA) SP GRAVITY (test 1.015 1.005-1.030 code = SPGR) PH UR (test code = 8.0 4.5-8.0 PH) PROTEIN UR (test Negative NEGATIVE code = PU) NITRITE UR (test Negative NEGATIVE code = NITRITE) UROBIL UR (test code 0.2 E.U./dL = GUROQ) UROBIL UR (test code UROBILINOGEN = GUROQC) REFERENCE RANGE 0.2 - 1.0 EU/dL BLOOD UR (test code 1+ NEGATIVE A = UA BLOOD) LEUK ES UR (test Negative NEGATIVE code = LEUK) CBC (INCLUDES AUTOMATED DIFFERENTIAL) *2017-10-15 10:33:00 Test Item Value Reference Range Interpretation Comments WBC (test code = WBC) 8.1 10\\S\\3/uL 4.5-11.0 RBC (test code = RBC) 4.97 10\\S\\6/uL 4.20-5.60 HGB (test code = HBG) 14.4 g/dL 12.0-15.5 HCT (test code = HCT) 43.9 % 35.0-44.0 MCV (test code = MCV) 88.3 fL 81.0-99.0 MCH (test code = MCH) 29.0 pg 27.0-31.0 MCHC (test code = MCHC) 32.8 g/dL 32.0-36.0 RDW (test code = RDW) 17.1 % 11.5-14.5 H PLT (test code = PLT) 303 10\\S\\3/uL 130-400 MPV (test code = MPV) 7.1 fL 9.4-12.4 L NEUTROP # (test code = NE#) 5.1 10\\S\\3/uL 1.6-8.0 LYMPH # (test code = LY#) 2.0 10\\S\\3/uL 1.1-3.5 MID # (test code = GMID#) 0.9 10\\S\\3/uL 0.0-1.1 GRA % (test code = GRA%) 63.5 % 35.0-73.0 LYMPH % (test code = GLY%) 24.8 % 20.0-55.0 MID % (test code = GMID%) 11.7 % 0.0-10.0 H CHEM8+ i-STAT OW2017-10-15 10:33:00 Test Item Value Reference Range Interpretation Comments SODIUM (test code = RADHA) 141 mmol/L 138-146 POTASSIUM (test code = KI) 5.0 mmol/L 3.5-4.9 H CHLORIDE (test code = CLI) 104 mmol/L 98-109 CA IONIZED (test code = ICAI) 1.19 mmol/L 1.12-1.32 GLUCOSE (test code = GLUI) 123 mg/dL 75-100 H TCO2 (test code = TCO2) 28 mmol/L 24-29 BUN (test code = BUN1) 11 mg/dL 8-26 CREATININE (test code = CREAI) 0.6 mg/dL 0.6-1.3 ANION GAP (test code = GANG) 15.0 mmol/L
[2022-02-24] MEDS ORDERED: ASPIRIN 81 MG CHEWABLE TABLET ONE ×2 (16:23)
[2022-02-24 16:41] LABS: Absolute Lymphocytes (CBC) 1.9 K/uL (0.7-4.9); Hematocrit 41.7 % (36.0-45.0); Lymphocytes % 24.1 % (15.3-44.8); MCV 90.7 fL (80-100); MPV 8.1 fL (7.6-11.3); RBC Red Blood Cell Count 4.59 M/uL (3.86-4.86)
[2022-02-24 16:44] LABS: Protime INR 1.03
--- NOTE | 2022-02-24 16:56 | RAD REPORT ---
EXAM DESCRIPTION: RAD - Chest Single View - 02/24/2022 4:35 pm CLINICAL HISTORY: Chest pain COMPARISON: None TECHNIQUE: AP portable chest image was obtained 02/24/2022 4:35 pm . FINDINGS: Lungs are clear. Heart and vasculature are normal. No measurable pleural effusion and no p neumothorax. No acute bony abnormality seen. No acute aortic findings suspected. IMPRESSION: No acute cardiopulmonary process.
[2022-02-24 16:59] LABS: ALT/SGPT 36 U/L (12-78); AST/SGOT 20 U/L (15-37); Albumin 4.1 g/dL (3.4-5.0); Alkaline Phosphatase 64 U/L (45-117); BUN Blood Urea Nitrogen 15 mg/dL (7-18); Bicarbonate 29 mmol/L (21-32); Bilirubin Total 0.2 mg/dL (0.2-1.0); Glomerular Filtration Rate 96 ml/min (=/>90); Glucose Level 107 mg/dL (74-106); Magnesium 1.9 mg/dL (1.8-2.4); NT PRO-BNP 144 pg/mL (<125); Potassium 3.8 mmol/L (3.5-5.1); Protein, Total 7.6 g/dL (6.4-8.2); Sodium Level 144 mmol/L (136-145); Troponin High Sensitivity 6.2 pg/mL (<58.9)
[2022-02-24 17:01] LABS: Bilirubin Direct < 0.1 mg/dL (0-0.2); T3 Free 2.17 pg/mL (2.18-3.98)
[2022-02-24] MEDS ORDERED: LORazepam 2 MG/ML VIAL ONE (18:39)
--- NOTE | 2022-02-24 21:05 | EDPHYS ---
Physician Documentation [facility] Name: Fany Meza Age: 51 yrs Sex: Female : 1970 Arrival Date: 02/24/2022 Time: 16:03 Bed 14 Private MD: ED Physician Smooth Avery HPI: 02/24 16:20 This 51 yrs old Female presents to ER via Ambulatory with complaints of Chest Pain, cp Palpitations. 16:20 The patient or guardian reports chest pain that is located primarily in the anterior cp chest wall, left. 16:20 Onset: yesterday. The patient presents with a history of heart racing. Context: The cp symptoms occur at rest. Onset: The symptoms/episode began/occurred today. Duration: The patient or guardian reports multiple episodes, that are intermittent. 16:20 The pain does not radiate. 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 ROS: 16:25 Constitutional: Negative for body aches, chills, fever, poor PO intake. cp 16:25 Eyes: Negative for injury, pain, redness, and discharge. cp 16:25 ENT: Negative for drainage from ear(s), ear pain, sore throat, difficulty swallowing, difficulty handling secretions. 16:25 Cardiovascular: Positive for chest pain, palpitations, Negative for edema. 16:25 Respiratory: Negative for cough, shortness of breath, wheezing. 16:25 Abdomen/GI: Negative for abdominal pain, nausea, vomiting, and diarrhea. 16:25 Back: Negative for pain at rest, pain with movement. 16:25 Neuro: Negative for altered mental status, dizziness, headache, numbness, syncope, weakness. Exam: 16:21 ECG was reviewed by the Attending Physician. cp 20:31 Constitutional: This is a well developed, well nourished patient who is awake, alert, jmm and in no acute distress. Head/Face: atraumatic. Eyes: EOMI, no conjunctival erythema appreciated ENT: Moist Mucus Membranes Neck: Trachea midline, Supple Chest/axilla: Normal chest wall appearance and motion. Cardiovascular: Regular rate and rhythm. No edema appreciated Respiratory: Normal respirations, no respiratory distress appreciated Abdomen/GI: Non distended Back: Normal ROM Skin: General appearance color normal MS/ Extremity: Moves all extremities, no obvious deformities appreciated, no edema noted to the lower extremities Neuro: Awake and alert Psych: Behavior is normal, Mood is normal, Patient is cooperative and pleasant Vital Signs: 16:24 BP 136 / 86; Pulse 77; Resp 18; Temp 98.6(O); Pulse Ox 99% on R/A; Weight 77.11 kg; tw2 Height 5 ft. 4 in. (162.56 cm); Pain 4/10; 17:32 BP 120 / 76; Pulse 70; Resp 17; Pulse Ox 97% on R/A; tw2 18:45 BP 135 / 83; Pulse 57; Resp 17; Pulse Ox 97% on R/A; tw2 19:30 BP 103 / 65; Pulse 71; Resp 16; Pulse Ox 95% on R/A; jb4 20:45 BP 112 / 71; Pulse 69; Resp 17; Pulse Ox 97% on R/A; jb4 21:30 BP 110 / 73; Pulse 69; Resp 16; Pulse Ox 96% on R/A; jb4 16:24 Body Mass Index 29.18 (77.11 kg, 162.56 cm) tw2 MDM: 16:12 Patient medically screened. cp 18:20 HEART Score: History: Slightly Suspicious (0), ECG: Normal (0), Age: > 45 and < 65 cp years (1), Risk Factors: 1 or 2 risk factors (1), [Hypertension] [Active Smoker] Troponin: < or = 1 x Normal Limit (0). 19:00 Transition of care: After a detail discussion of the patient's case, care is cp transferred to Phong TOLENTINO. 19:00 The patient was given aspirin in the Emergency Department. cp 21:52 Data reviewed: vital signs, nurses notes, lab test result(s), EKG, radiologic studies. rt 02/24 16:11 Order name: Basic Metabolic Panel; Complete Time: 17:02 cp 02/24 17:03 Interpretation: Normal except: GLUC 107. 02/24 16:11 Order name: CBC with Diff; Complete Time: 17:02 02/24 16:11 Order name: D-Dimer; Complete Time: 17:02 02/24 16:11 Order name: LFT's; Complete Time: 17:02 02/24 16:11 Order name: Magnesium; Complete Time: 17:02 02/24 16:11 Order name: NT PRO-BNP; Complete Time: 17:02 02/24 16:11 Order name: PT-INR; Complete Time: 17:02 02/24 16:11 Order name: Troponin HS; Complete Time: 17:02 02/24 17:03 Interpretation: Troponin HS 6.2; Reviewed. 02/24 16:11 Order name: XRAY Chest (1 view); Complete Time: 17:02 02/24 17:03 Interpretation: Report review. 02/24 16:11 Order name: TSH; Complete Time: 17:02 02/24 16:11 Order name: T3 Free; Complete Time: 17:02 02/24 17:03 Interpretation: Abnormal: T3F 2.17. 02/24 18:50 Order name: Troponin High Sensitivity: Repeat at 8; Complete Time: 21:20 [facility] 02/24 16:11 Order name: Cardiac monitoring; Complete Time: 16:22 02/24 16:11 Order name: EKG - Nurse/Tech; Complete Time: 16:21 02/24 16:11 Order name: IV Saline Lock; Complete Time: 16:21 02/24 16:11 Order name: Labs collected and sent; Complete Time: 16:21 02/24 16:11 Order name: O2 Per Protocol; Complete Time: 16:21 02/24 16:11 Order name: O2 Sat Monitoring; Complete Time: 16:21 EC:21 Rate is 69 beats/min. Rhythm is regular. WV interval is normal. QRS interval is normal. cp QT interval is normal. T waves are Inverted in leads III, aVR. Interpreted by me. Reviewed by me. Administered Medications: 16:26 Drug: Aspirin Chewable Tablet 324 mg Route: PO; ld1 17:08 Follow up: Response: No adverse reaction tw2 18:44 Drug: Ativan (LORazepam) 0.5 mg Route: IVP; Site: right antecubital; tw2 Disposition: 21:51 Co-signature as Attending Physician, Smooth Avery MD Attestation: The patient's rt history, exam findings, diagnostics, and a summary of any interventions or procedures was reviewed in detail with Phong TOLENTINO Patient presents to the ED with report of palpitations, improving today. She is in no acute distress on my examination. She has a normal EKG, 2 negative troponins. The rest of the work-up is benign. She is stable for outpatient care, return precautions were discussed. Do not suspect PE, ACS, dysrhythmia.. Disposition Summary: 02/24/22 21:38 Discharge Ordered Location: Home(02/24/22 21:38) rt Condition: Stable(02/24/22 21:38) rt Diagnosis - Chest pain, unspecified(02/24/22 21:38) rt Followup: jmm - With: Private Physician - When: 2 - 3 days - Reason: Recheck today's complaints, Continuance of care, Re-evaluation by your physician Discharge Instructions: - Discharge Summary Sheet jmm - Nonspecific Chest Pain, Adult jmm Forms: - Medication Reconciliation Form rt - Thank You Letter rt - Antibiotic Education rt - Prescription Opioid Use rt Signatures: Dispatcher [employer] EDMS Phong Johnson PA PA jmm Williams, Irene, RN RN iw Nigel Oliver PA PA cp Wise, Tara RN RN tw2 Melody Baez RN RN ld1 Smooth Avery MD MD rt Corrections: (The following items were deleted from the chart) 21:05 21:05 Home jmm jm 21:05 21:05 Stable jm jm 21:05 21:05 Chest pain, unspecified jmm jm 02/25 18:18 02/24 18:19 Onset: yesterday, cp cp 02/25 18:18 02/24 18:19 The patient presents with a history of heart racing, cp cp 02/25 18:18 02/24 18:19 Context: The symptoms occur at rest, cp cp 02/25 18:18 15 18:19 Onset: The symptoms/episode began/occurred today, cp cp 02/25 18:18 02/24 18:19 Duration: The patient or guardian reports multiple episodes, that are cp intermittent, cp
--- NOTE | 2022-02-24 21:05 | ER ---
Nurse's Notes [facility] Name: Fany Meza Age: 51 yrs Sex: Female : 1970 Arrival Date: 02/24/2022 Time: 16:03 Bed 14 Private MD: Diagnosis: Chest pain, unspecified Presentation: 02/24 16:09 Chief complaint: Patient states: chest pain and fluttering/palpitations X 2 days. iw Coronavirus screen: At this time, the client does not indicate any symptoms associated with coronavirus-19. Ebola Screen: Patient negative for fever greater than or equal to 101.5 degrees Fahrenheit, and additional compatible Ebola Virus Disease symptoms Patient denies exposure to infectious person. Patient denies travel to an Ebola-affected area in the 21 days before illness onset. No symptoms or risks identified at this time. Initial Sepsis Screen: Does the patient meet any 2 criteria? No. Patient's initial sepsis screen is negative. Does the patient have a suspected source of infection? No. Patient's initial sepsis screen is negative. Risk Assessment: Do you want to hurt yourself or someone else? Patient reports no desire to harm self or others. Onset of symptoms was February 22, 2022. 16:09 Method Of Arrival: Ambulatory iw 16:09 Acuity: SHARAN 3 iw ZINC MINER BLASTING: 17:10 LMP N/A - tw2 Historical: - Allergies: 16:10 No Known Allergies; iw - Home Meds: 16:10 amlodipine 5 mg tab 1 tab once daily [Active]; iw - PMHx: 16:10 Hypertensive disorder; cervical cancer; Hep C , in remission; iw - PSHx: 16:10 section; neck; iw - Social history:: Smoking status: Patient reports the use of cigarette tobacco products, smokes one-half pack cigarettes per day. Screenin:30 Abuse screen: Denies threats or abuse. Nutritional screening: No deficits noted. tw2 Tuberculosis screening: No symptoms or risk factors identified. Fall Risk None identified. Assessment: 16:40 Pain: Pain does not radiate. Pain began 2-3 days ago. tw2 16:40 General: Appears in no apparent distress. Behavior is calm, cooperative, appropriate tw2 for age. Neuro: Level of Consciousness is awake, alert, obeys commands, Oriented to person, place, time, situation. Cardiovascular: Reports chest pain, palpitations, for 2 days. Musculoskeletal: Range of motion: intact in all extremities. 17:32 Reassessment: Patient appears in no apparent distress at this time. No changes from tw2 previously documented assessment. Patient and/or family updated on plan of care and expected duration. Pain level reassessed. Patient is alert, oriented x 3, equal unlabored respirations, skin warm/dry/pink. 18:45 Reassessment: Patient and/or family updated on plan of care and expected duration. Pain tw2 level reassessed. Patient is alert, oriented x 3, equal unlabored respirations, skin warm/dry/pink. 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 19:20 Reassessment: Patient appears in no apparent distress at this time. Patient and/or jb4 family updated on plan of care and expected duration. Pain level reassessed. Patient is alert, oriented x 3, equal unlabored respirations, skin warm/dry/pink. Patient states feeling better. 20:30 Reassessment: Patient appears in no apparent distress at this time. Patient and/or jb4 family updated on plan of care and expected duration. Pain level reassessed. Patient is alert, oriented x 3, equal unlabored respirations, skin warm/dry/pink. 22:01 Reassessment: Patient appears in no apparent distress at this time. Patient and/or jb4 family updated on plan of care and expected duration. Pain level reassessed. Patient is alert, oriented x 3, equal unlabored respirations, skin warm/dry/pink. Vital Signs: 16:24 BP 136 / 86; Pulse 77; Resp 18; Temp 98.6(O); Pulse Ox 99% on R/A; Weight 77.11 kg; tw2 Height 5 ft. 4 in. (162.56 cm); Pain 4/10; 17:32 BP 120 / 76; Pulse 70; Resp 17; Pulse Ox 97% on R/A; tw2 18:45 BP 135 / 83; Pulse 57; Resp 17; Pulse Ox 97% on R/A; tw2 19:30 BP 103 / 65; Pulse 71; Resp 16; Pulse Ox 95% on R/A; jb4 20:45 BP 112 / 71; Pulse 69; Resp 17; Pulse Ox 97% on R/A; jb4 21:30 BP 110 / 73; Pulse 69; Resp 16; Pulse Ox 96% on R/A; jb4 16:24 Body Mass Index 29.18 (77.11 kg, 162.56 cm) tw2 ED Course: 16:03 Patient arrived in ED. as 16:04 Nigel Oliver PA is PHCP. cp 16:04 Tam Meraz MD is Attending Physician. cp 16:10 Triage completed. iw 16:11 Arm band placed on. iw 16:12 Placed in gown. Bed in low position. library monitor on. Pulse ox on. NIBP on. tw2 16:21 Vira Ambrosio RN is Primary Nurse. tw2 16:21 Inserted saline lock: 20 gauge in right antecubital area, using aseptic technique. ld1 Blood collected. 16:36 XRAY Chest (1 view) In Process Unspecified. EDMS 16:40 Patient maintains SpO2 saturation greater than 95% on room air. tw2 19:12 Primary Nurse role handed off by Vira Ambrosio RN mw2 19:14 PHCP role handed off by Nigel Oliver PA jmm 19:14 Phong Johnson PA is PHCP. jmm 19:24 Henrry Alfonso, SCOTTY is Primary Nurse. jb4 21:06 Attending Physician role handed off by Tam Meraz MD rt 21:06 Smooth Avery MD is Attending Physician. rt 22:01 No provider procedures requiring assistance completed. IV discontinued, intact, jb4 bleeding controlled, No redness/swelling at site. Pressure dressing applied. Administered Medications: 16:26 Drug: Aspirin Chewable Tablet 324 mg Route: PO; ld1 17:08 Follow up: Response: No adverse reaction tw2 18:44 Drug: Ativan (LORazepam) 0.5 mg Route: IVP; Site: right antecubital; tw2 Medication: 16:40 VIS not applicable for this client. tw2 Outcome: 21:05 Discharge ordered by . jmm 21:38 Discharge ordered by . rt 22:01 Discharged to home ambulatory. jb4 22:01 Condition: stable 22:01 Discharge instructions given to patient, Instructed on discharge instructions, follow up and referral plans. Demonstrated understanding of instructions, follow-up care. 22:03 Patient left the ED. jb4 Signatures: Dispatcher [employer] EDMS Phong Johnson PA PA jmm Martinez, Amelia as Williams, Irene, RN RN iw Nigel Oliver PA PA cp Wise, Tara, SCOTTY RN tw2 Henrry Alfonso RN RN jb4 Vinay Pope mw2 Melody Baez RN RN ld1 Smooth Avery MD MD rt
[2022-02-24 22:28] VITALS: TEMP 98.6
[2022-02-24 22:34] VITALS: BP 110/73; O2SAT 96
--- NOTE | 2022-02-28 19:23 | EKG ---
Test Date: 2022-02-24 Test Time: 16:18:20 Cooler Room Worker: YOMAIRA MEASUREMENT RESULTS: Intervals: Rate: 69 NM: 118 QRSD: 84 QT: 408 QTc: 437 [place]: P: 58 NM: 118 QRS: 43 T: 4 INTERPRETIVE STATEMENTS: Normal sinus rhythm Normal ECG No previous ECG available for comparison Electronically Signed On 02-28-22 19:11:36 WEAVER HAND by Rich Sprague
== END 2022-02-24 22:03 | disposition home or self-care (01) ==
LOC: ER 16:02
DX: R07.89 Other chest pain (principal); I10 Essential (primary) hypertension; F17.210 Nicotine dependence, cigarettes, uncomplicated
CPT/HCPCS: 36415; 71045; 80048; 80076; 83735; 83880; 84443; 84481; 84484; 85025; 85379; 85610; 93005; 96374; 99285

== ENCOUNTER 2022-03-04 23:55 | Emergency (ER) | payer OTHER ==
--- OUTSIDE RECORDS SUMMARY | 2022-03-05 00:25 | XMS REPORT | Continuity of Care Document ---
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 (5 st mg tablet 00:00: 00:00 mg total) [facility] 00 :00 by mouth l daily. amLODIPine 2021-0 2022- No 5mg QD Take 1 [facility] (NORVASC) 5 09-11- tablet (5 st mg tablet 00:00: 00:00 mg total) [facility] 00 :00 by mouth l daily. naproxen 0 Yes TAKE 1 [facility] (NAPROSYN) 5-22 TABLET(500 st 500 MG 00:00: MG) BY Hospita tablet 00 MOUTH l TWICE DAILY WITH MEALS naproxen 0 Yes TAKE 1 [facility] (NAPROSYN) 5-22 TABLET(500 st 500 MG 00:00: MG) BY [facility]ospita tablet 00 MOUTH l TWICE DAILY WITH MEALS naproxen 2021-0 Yes TAKE 1 [facility] (NAPROSYN) 5-22 TABLET(500 st 500 MG 00:00: MG) BY [facility]ospita tablet 00 MOUTH l TWICE DAILY WITH MEALS meclizine 2021-0 2021- No 25mg [id number] Take 1 [facility] (ANTIVERT) 08-26 [id number] tablet (25 st 25 mg 00:00: 00:00 3D mg total) Hospit [facility] tablet 00 :00 by mouth 3 l (three) times a day as needed for dizziness for up to 30 days. meclizine 2-0 2022- No 25mg Q.[id number] Take 1 [facility] (ANTIVERT) 08-26- [id number] tablet (25 st 25 mg 00:00: 00:00 3D mg total) Hospit a tablet 00 :00 by mouth 3 l (three) times a day as needed for dizziness for up to 30 days. meclizine 2021-0 2022- No 25mg [id number] Take 1 [facility] (ANTIVERT) 5-17 0610 [id number] tablet (25 st 25 mg 00:00: 00:00 3D mg total) Hospit a tablet 00 :00 by mouth 3 l (three) times a day as needed for dizziness for up to 30 days. pregabalin 2021-0 2022- No 50mg Q.5D Take 1 [facility] (Lyrica) 50 5-05 06-[address] [facility] capsule 00:00: 00:00 (50 mg [facility] 00 :00 total) by l mouth 2 (two) times a day for 60 days. pregabalin 2021-0 2022- No 50mg Q.5D Take 1 [facility] (Lyrica) 50 5-05 06-[address] [facility] capsule 00:00: 00:00 (50 mg [facility] 00 :00 total) by l mouth 2 (two) times a day for 60 days. pregabalin 2021-0 2022- No 50mg Q.5D Take 1 [facility] (Lyrica) 50 5- 06-[address] [facility] capsule 00:00: 00:00 (50 mg [facility] 00 :00 total) by l mouth 2 (two) times a day for 60 days. doxycycline 2021-0 202- No 100mg Take 100 [facility] (VIBRAMYCIN 4-30 06-[address] ) 100 MG 00:00: 00:00 mouth. Hospit a capsule 00 :00 l metroNIDAZO 2021-0 2- No 500mg Q.5D Take 500 [facility] LE (FLAGYL) 4-30 06-[address] 500 MG 00:00: 00:00 mouth 2 [facility]ospita tablet 00 :00 (two) l times a day. doxycycline 2021-0 2022- No 100mg Take 100 [facility] (VIBRAMYCIN 4-30 06-[address] ) 100 MG 00:00: 00:00 mouth. Hospit a capsule 00 :00 l metroNIDAZO 2022-0 2022- No 500mg Q.5D Take 500 [facility] (FLAGYL) 4-30 06-[address] 500 MG 00:00: 00:00 mouth 2 [facility]ospita tablet 00 :00 (two) l times a day. doxycycline 2022-0 2022- No 100mg Take 100 [facility] (VIBRAMYCIN 4-30 06-[address] ) 100 MG 00:00: 00:00 mouth. Hospit a capsule 00 :00 l metroNIDAZO 2021- No 500mg Q.5D Take 500 [facility] LE (FLAGYL) 4-30 06-[address] 500 MG 00:00: 00:00 mouth 2 [facility]ospita tablet 00 :00 (two) [place] [id number] 1{tbl} Q6H Take 1-2 [facility] en-codeine 4 05-[address] (TYLENOL 00:00: 04:59 mouth [facility]osp[facility] WITH 00 :00 every 6 l CODEINE #3) (six) 300-30 mg hours as per tablet needed for moderate pain for up to 5 [place] [id number] 1{tbl} Q6H Take 1-2 [facility] en-codeine 4- 05-[address] (TYLENOL 00:00: 04:59 mouth [facility]osp[facility] WITH 00 :00 every 6 l CODEINE #3) (six) 300-30 mg hours as per tablet needed for moderate pain for up to 5 days .acute pain. acetaminoph No 1{tbl} Q6H Take 1-2 [facility] en-codeine 4- 05-[address] (TYLENOL 00:00: 04:59 mouth [facility] WITH 00 :00 every 6 l CODEINE #3) (six) 300-30 mg hours as per tablet needed for moderate pain for up to 5 days .acute pain. amoxicillin 2021- No [id number] 500mg Q.5D Take 1 [facility] (AMOXIL) 07-[address] 500 MG 00:00: 04:59 (500 mg Hospita tablet 00 :00 total) by l mouth 2 (two) times a day for 7 days. amoxicillin 2021- No [id number] 500mg Q.5D Take 1 [facility] (AMOXIL) 07-[address] 500 MG 00:00: 04:59 (500 mg Hospita tablet 00 :00 total) by l mouth 2 (two) times a day for 7 days. amoxicillin 2021- No [id number] 500mg Q.5D Take 1 [facility] (AMOXIL) 4-14 -[address] 500 MG 00:00: 04:59 (500 mg Hospita tablet 00 :00 total) by l mouth 2 (two) times a day for 7 days. nicotine 2021-2021- No 1{patch Q24H Place 1 [facility] (Nicoderm 4-13 05-14 } patch on st CQ) 21 00:00: 04:59 the skin Hospit a mg/24 hr 00 :00 daily for l 30 days. nicotine 2021-2021- No 1{patch Q24H Place 1 [facility] (Nicoderm 4-13 05-14 } patch on st [facility]) 21 00:00: 04:59 the skin Hospit a mg/24 hr 00 :00 daily for l 30 days. nicotine 2021-2021- No 1{patch Q24H Place 1 [facility] (Nicoderm 4-13 05-14 } patch on st C[facility]) 21 00:00: 04:59 the skin Hospit a mg/24 hr 00 :00 daily for l 30 days. amLODIPine 2021-2021- No 5mg QD Take 1 [facility] (NORVASC) 5 4-05 06-02 tablet (5 st mg tablet 00:00: 00:00 mg total) [facility] 00 :00 by mouth l daily. amLODIPine 2021-0 2021- No 5mg QD Take 1 [facility] (NORVASC) 5 4-05 06-02 tablet (5 st mg tablet 00:00: 00:00 mg total) [facility] 00 :00 by mouth l daily. amLODIPine 2021-2021- No 5mg QD Take 1 [facility] (NORVASC) 5 4-05 06-02 tablet (5 st mg tablet 00:00: 00:00 mg total) [facility] 00 :00 by mouth l daily. naproxen 2021-2021- No 500mg Q.5D Take 1 [facility] (Naprosyn) 3-30 -[address] 500 MG 00:00: 00:00 (500 mg Hospita tablet 00 :00 total) by l mouth 2 (two) times a day with meals. naproxen 2021-0 2021- No 500mg Q.5D Take 1 [facility] (Naprosyn) 3-30 05-[address] 500 MG 00:00: 00:00 (500 mg Hospita tablet 00 :00 total) by l mouth 2 (two) times a day with meals. naproxen 2021-0 2021- No 500mg Q.5D Take 1 [facility] (Naprosyn) 3-30 05-[address] 500 MG 00:00: 00:00 (500 mg Hospita tablet 00 :00 total) by l mouth 2 (two) times a day with meals. ibuprofen 2021-0 2022- No 800mg Q6H Take 1 [facility] (ADVIL) 800 -31 07-[address] [facility] tablet 00:00: 04:59 (800 mg [facility] 00 :00 total) by l mouth every 6 (six) hours as needed for mild pain for up to 30 days. benzonatate 2021-0 2- No 100mg Q8H Take 1 [facility] (TESSALON) 3-31 07-[address] 100 MG 00:00: 04:59 (100 mg Hospita capsule 00 :00 total) by l mouth every 8 (eight) hours for 30 days. ibuprofen 2021-0 2- No 800mg Q6H Take 1 [facility] (ADVIL) 800 -31 07-[address] [facility] tablet 00:00: 04:59 (800 mg [facility] 00 :00 total) by l mouth every 6 (six) hours as needed for mild pain for up to 30 days. benzonatate 2-0 2022- No 100mg Q8H Take 1 [facility] (TESSALON) 3-31 07-[address] 100 MG 00:00: 04:59 (100 mg [facility]ospita capsule 00 :00 total) by l mouth every 8 (eight) hours for 30 days. ibuprofen 2021-0 2- No 800mg Q6H Take 1 [facility] (ADVIL) 800 3-31 07-[address] MG tablet 00:00: 04:59 (800 mg [facility] 00 :00 total) by l mouth every 6 (six) hours as needed for mild pain for up to 30 days. benzonatate 2-0 2022- No 100mg Q8H Take 1 [facility] (TESSALON) 3-31 07-[address] 100 MG 00:00: 04:59 (100 mg Hospita capsule 00 :00 total) by l mouth every 8 (eight) hours for 30 days. amoxicillin 2021- No [id number] 500mg Q.5D Take 1 [facility] (AMOXIL) 06-[address] 500 MG 00:00: 04:59 (500 mg Hospita tablet 00 :00 total) by l mouth in the morning and 1 tablet (500 mg total) before bedtime. Do all this for 7 days. amoxicillin 2021- No [id number] 500mg Q.5D Take 1 [facility] (AMOXIL) 06-[address] 500 MG 00:00: 04:59 (500 mg Hospita tablet 00 :00 total) by l mouth in the morning and 1 tablet (500 mg total) before bedtime. Do all this for 7 days. amoxicillin 2021- No [id number] 500mg Q.5D Take 1 [facility] (AMOXIL) 06-[address] 500 MG 00:00: 04:59 (500 mg Hospita tablet 00 :00 total) by l mouth in the morning and 1 tablet (500 mg total) before bedtime. Do all this for 7 days. naproxen 2021- No 500mg Q.5D Take 1 [facility] (Naprosyn) 06-[address] 500 MG 00:00: 00:00 (500 mg Hospita tablet 00 :00 total) by l mouth 2 (two) times a day with meals. naproxen 2021- No 500mg Q.5D Take 1 [facility] (Naprosyn) 06-[address] 500 MG 00:00: 00:00 (500 mg Hospita tablet 00 :00 total) by l mouth 2 (two) times a day with meals. naproxen 2021- No 500mg Q.5D Take 1 [facility] (Naprosyn) 06-[address] 500 MG 00:00: 00:00 (500 mg Hospita tablet 00 :00 total) by l mouth 2 (two) times a day with meals. amLODIPine 2021- No [facility] (NORVASC) 05-15 st 2.5 mg 00:00: 00:00 Hospita tablet 00 :00 l amLODIPine 2-0 2021- No [facility] ([facility]) 2-05 st 2.5 mg 00:00: 00:00 Hospita tablet 00 :00 l amLODIPine 2021-0 2021- No [facility] ([facility]) 2-05 st 2.5 mg 00:00: 00:00 Hospita tablet 00 :00 l HYDROcodone 2021-0 2021- [place] [id number] 1{tbl} Q6H Take 1 [facility] -acetaminop 05-[address] [facility] ([place]) 00:00: 05:59 mouth [facility] 5-325 mg 00 :00 every 6 l per tablet (six) hours as needed for moderate pain for up to 5 days .acute pain. Max Daily Amount: 4 tablets HYDROcodone 2021-0 2021- No [id number] 1{tbl} Q6H Take 1 [facility] -acetaminop 05-[address] [facility] ([place]) 00:00: 05:59 mouth [facility] 5-325 mg 00 :00 every 6 l per tablet (six) hours as needed for moderate pain for up to 5 days .acute pain. Max Daily Amount: 4 tablets HYDROcodone 2021-0 2021- No [id number] 1{tbl} Q6H Take 1 [facility] -acetaminop 05-[address] [facility] ([place]) 00:00: 05:59 mouth [facility] 5-325 mg 00 :00 every 6 l per tablet (six) hours as needed for moderate pain for up to 5 days .acute pain. Max Daily Amount: 4 tablets acetaminoph 2021-0 2021- No [id number] 1{tbl} Q6H Take 1-2 [facility] en-codeine 05-[address] (TYLENOL 00:00: 00:00 mouth [facility]ospita WITH 00 :00 every 6 l CODEINE #3) (six) 300-30 mg hours as per tablet needed for moderate pain for up to 15 days .acute pain. acetaminoph 2021-2021- No 1{tbl} Q6H Take 1-2 [facility] en-codeine 05-[address] (TYLENOL 00:00: 00:00 mouth [facility]ospita WITH 00 :00 every 6 l CODEINE #3) (six) 300-30 mg hours as per tablet needed for moderate pain for up to 15 days .acute pain. acetaminoph 2021- [place] [id number] 1{tbl} Q6H Take 1-2 [facility] en-codeine 05-[address] (TYLENOL 00:00: 00:00 mouth [facility]ospita WITH 00 :00 every 6 l CODEINE #3) (six) 300-30 mg hours as per tablet needed for moderate pain for up to 15 days .acute pain. predniSONE 2021-2021- No 2 PO [facility] (DELTASONE) 04-[address] 20 mg 00:00: 05:59 followed Hospita tablet 00 :00 by one PO l BID times 5 days. All with food. predniSONE 2021-0 2021- No 2 PO [facility] (DELTASONE) 04-[address] 20 mg 00:00: 05:59 followed Hospita tablet 00 :00 by one PO l BID times 5 days. All with food. predniSONE 2021-0 2021- No 2 PO [facility] (DELTASONE) 04-[address] 20 mg 00:00: 05:59 followed Hospita tablet 00 :00 by one PO l BID times 5 days. All with food. ibuprofen 2021-2021- No 600mg Q6H Take 1 [facility] (ADVIL) 600 04-12-[address] [facility] tablet 00:00: 00:00 (600 mg [facility] 00 :00 total) by l mouth every 6 (six) hours as needed for mild pain for up to 30 doses. ibuprofen 0 2021- No 600mg Q6H Take 1 [facility] (ADVIL) 600 04-12-[address] [facility] tablet 00:00: 00:00 (600 mg [facility] 00 :00 total) by l mouth every 6 (six) hours as needed for mild pain for up to 30 doses. ibuprofen 0 2021- No 600mg Q6H Take 1 [facility] (ADVIL) 600 04-12-[address] MG tablet 00:00: 00:00 (600 mg [facility] 00 :00 total) by l mouth every 6 (six) hours as needed for mild pain for up to 30 doses. acetaminoph 1{tbl} Q6H Take 1 [facility] en-codeine 04-[address] (TYLENOL 00:00: 05:59 mouth [facility]ospita WITH 00 :00 every 6 l CODEINE #3) (six) 300-30 mg hours as per tablet needed for severe pain for up to 5 days .acute pain. acetaminoph 1{tbl} Q6H Take 1 [facility] en-codeine 04-[address] (TYLENOL 00:00: 05:59 mouth [facility]ospita WITH 00 :00 every 6 l CODEINE #3) (six) 300-30 mg hours as per tablet needed for severe pain for up to 5 days .acute pain. acetaminoph 1{tbl} Q6H Take 1 [facility] en-codeine 04-[address] (TYLENOL 00:00: 05:59 mouth [facility]ospita WITH 00 :00 every 6 l CODEINE #3) (six) 300-30 mg hours as per tablet needed for severe pain for up to 5 days .acute pain. traMADoL 50mg Q6H Take 1 [facility] (ULTRAM) 50 04-12 tablet (50 s t mg tablet 00:00: 00:00 mg total) Ho spita 00 :00 by mouth l every 6 (six) hours as needed for moderate pain for up to 5 days .acute pain. traMADoL 50mg Q6H Take 1 [facility] (ULTRAM) 50 04-12 tablet (50 s t mg tablet 00:00: 00:00 mg total) Ho [facility]ita 00 :00 by mouth l every 6 (six) hours as needed for moderate pain for up to 5 days .acute pain. traMADoL 50mg Q6H Take 1 [facility] (ULTRAM) 50 04-12 tablet (50 s t mg tablet 00:00: 00:00 mg total) Ho spita 00 :00 by mouth l every 6 (six) hours as needed for moderate pain for up to 5 days .acute pain. amLODIPine 2020-04- No 2.5mg QD Take 1 [facility] (NORVASC) 04-21- tablet st 2.5 mg 00:00: 00:00 (2.5 mg Hospita tablet 00 :00 total) by l mouth daily. amLODIPine 2020-04- No 2.5mg QD Take 1 [facility] (NORVASC) 04-[address] 2.5 mg 00:00: 00:00 (2.5 mg Hospita tablet 00 :00 total) by l mouth daily. amLODIPine 2020-04 No 2.5mg QD Take 1 [facility] (NORVASC) 04-[address] 2.5 mg 00:00: 00:00 (2.5 [...] 00 3 times mg/gram weekly. vaginal cream conjugated 2019-04 Yes Vaginal .5g Insert 0.5 [facility] estrogens 2-18 dryness [facility] (PREMARIN) 00:00: vaginally 0.625 00 3 times mg/gram weekly. vaginal cream conjugated 2019-04 Yes Vaginal .5g Insert 0.5 [facility] estrogens 2-18 dryness g Health (PREMARIN) 00:00: vaginally 0.625 00 3 times mg/gram weekly. vaginal cream traMADoL 2019-04 Yes S/P 50mg Take 1 [facility] (ULTRAM) 50 2-03 cervical tablet by Health mg tablet 00:00: spinal mouth 2 00 fusion times daily as needed for Pain. traMADoL 2019-04 Yes S/P 50mg Take 1 [facility] (ULTRAM) 50 2-03 cervical tablet by Health mg tablet 00:00: spinal mouth 2 00 fusion times daily as needed for Pain. traMADoL 2019-04 Yes S/P 50mg Take 1 [facility] (ULTRAM) 50 2-03 cervical tablet by Health mg tablet 00:00: spinal mouth 2 00 fusion times daily as needed for Pain. hydrOXYzine 2019-04 Yes Anxiety 10mg Take 1 H [facility]is (ATARAX) 10 0-26 tablet by a lth mg tablet 00:00: mouth 3 00 times daily as needed for Itching or Anxiety. hydrOXYzine 2019-04 Yes Anxiety 10mg Take 1 H arris (ATARAX) 10 0-26 tablet by Hea lth mg tablet 00:00: mouth 3 00 times daily as needed for Itching or Anxiety. hydrOXYzine 2019-04 Yes Anxiety 10mg Take 1 H arris (ATARAX) 10 0-26 tablet by a lth mg tablet 00:00: mouth 3 00 times daily as needed for Itching or Anxiety. baclofen Yes Neck pain 10mg Take 1 Maria rris (LIORESAL) 9-24 tablet by [facility] [place] 10 mg 00:00: mouth 2 tablet 00 times daily as needed (muscle spasms) STOP cyclobenza kasia (FLEXERIL) 10 mg tablet. baclofen Yes Neck pain 10mg Take 1 Maria rris (LIORESAL) 9-24 tablet by [facility] [place] 10 mg 00:00: mouth 2 tablet 00 times daily as needed (muscle spasms) STOP cyclobenza kasia (FLEXERIL) 10 mg tablet. baclofen Yes Neck pain 10mg Take 1 Maria rris (LIORESAL) 9-24 tablet by [facility] [place] 10 mg 00:00: mouth 2 tablet 00 times daily as needed (muscle spasms) STOP cyclob[facility] kasia (FLEXERIL) 10 mg tablet. amitriptyli 2019- Yes Neck pain 25mg Take 1 [facility]ood ne (ELAVIL) 9-03 tablet by a lth 25 mg 00:00: mouth at tablet 00 bedtime nightly. amitriptyli 2019-0 Yes Neck pain 25mg Take 1 Mam[facility] ne (ELAVIL) 9-03 tablet by Hea l[facility] 25 mg 00:00: mouth at tablet 00 bedtime nightly. amitriptyli 2019-0 Yes Neck pain 25mg Take 1 [facility]ood ne (ELAVIL) 9-03 tablet by Hea lth 25 mg 00:00: mouth at tablet 00 bedtime nightly. varenicline 2019- Yes Encounter Start [facility]mood (CHANTIX) 6 for smoking taking H ealth 0.5 mg 00:00: cessation this tablet 00 counseling medication 1 week prior to setting a quit date for smoking. Stop smoking on day 8.Days 1 to 3: take 1 tablet once dailyDays 4 to 7: take 1 tablet twice daily. varenicline 2019-0 Yes Encounter Start [facility] (CHANTIX) 1 09-11 for smoking taking Health mg tablet 00:00: cessation this 00 counseling medication on day 8. Take 1 tablet by mouth 2 times daily.. varenicline 2019-0 Yes Encounter Start [facility] (CHANTIX) 09-11 for smoking taking H ealth 0.5 mg 00:00: cessation this tablet 00 counseling medication 1 week prior to setting a quit date for smoking. Stop smoking on day 8.Days 1 to 3: take 1 tablet once dailyDays 4 to 7: take 1 tablet twice daily. varenicline 2019-0 Yes Encounter Start [facility] (CHANTIX) 1 09-11 for smoking taking Health mg tablet 00:00: cessation this 00 counseling medication on day 8. Take 1 tablet by mouth 2 times daily.. varenicline 2019-0 Yes Encounter Start [facility] (CHANTIX) 09-11 for smoking taking H ealth 0.5 mg 00:00: cessation this tablet 00 counseling medication 1 week prior to setting a quit date for smoking. Stop smoking on day 8.Days 1 to 3: take 1 tablet once dailyDays 4 to 7: take 1 tablet twice daily. varenicline 2019-0 Yes Encounter Start [facility] (CHANTIX) 1 09-11 for smoking taking Health mg tablet 00:00: cessation this 00 counseling medication on day 8. Take 1 tablet by mouth 2 times daily.. gabapentin 2019-0 Yes Neck pain 300mg Take 1 [facility] (NEURONTIN) 5-15 capsule by He alth 300 mg 00:00: mouth 3 capsule 00 times daily. gabapentin 2019-0 Yes Neck pain 300mg Take 1 [facility] (NEURONTIN) 5-15 capsule by He alth 300 mg 00:00: mouth 3 capsule 00 times daily. gabapentin 2019-0 Yes Neck pain 300mg Take 1 [facility] (NEURONTIN) 5-15 capsule by He alth 300 mg 00:00: mouth 3 capsule 00 times daily. ibuprofen 2020-0 Yes Caries 600mg Take 1 Tom ris (MOTRIN) 4-13 tablet by Health 600 mg 00:00: mouth tablet 00 every 8 hours as needed for Pain. ibuprofen 2020-0 Yes Caries 600mg Take 1 [facility] (MOTRIN) 4-13 tablet by Health 600 mg 00:00: mouth tablet 00 every 8 hours as needed for Pain. ibuprofen 2020-0 Yes Caries 600mg Take 1 [facility] (MOTRIN) 4-13 tablet by Health 600 mg 00:00: mouth tablet 00 every 8 hours as needed for Pain. MULTIVITAMI 2019- Yes Take by Tom ris N (DAILY 9-24 mouth. Health VITAMIN OR) 08:09: 11 sulfamethox 2018-0 Yes 1{tbl} Q.5D Take 1 [facility] rris azole-trime 9-24 tablet by [facility] thoprim 08:09: mouth 2 (BACTRIM 11 times DS) 800-160 daily. mg per tablet MULTIVITAMI 2018-0 Yes Take by Tom ris N (DAILY 9-24 mouth. Health VITAMIN OR) 08:09: 11 sulfamethox 2019-0 Yes 1{tbl} Q.5D Take 1 [facility] (BACTRIM 11 times DS) 800-160 daily. mg per tablet MULTIVITAMI 2019- Yes Take by [facility] ris N (DAILY 9-24 mouth. Health VITAMIN OR) 08:09: 11 sulfamethox 2019-0 Yes 1{tbl} Q.5D Take 1 Maria rris azole-trime 9-24 tablet by [facility] thoprim 08:09: mouth 2 (BACTRIM 11 times DS) 800-160 daily. mg per tablet conjugated Yes Vaginal .5g Insert 0.5 [facility] estrogens 8-03 dryness g Health (PREMARIN) 00:00: vaginally 0.625 00 2 times mg/gram weekly. vaginal cream conjugated Yes Vaginal .5g Insert 0.5 [facility] estrogens 8-03 dryness g Health (PREMARIN) 00:00: vaginally 0.625 00 2 times mg/gram weekly. vaginal cream conjugated Yes Vaginal .5g Insert 0.5 [facility] estrogens 8-03 dryness g Health (PREMARIN) 00:00: vaginally 0.625 00 2 times mg/gram weekly. vaginal cream silver Yes Desquamated Apply [facility] ris sulfADIAZIN 4-29 skin topically Hea lth E 00:00: to (SILVADENE) 00 radiated 1 % topical area up to cream three times daily and after each bath.. silver 2014-0 Yes Desquamated Apply Tom ris sulfADIAZIN 4-29 skin topically Hea lth E 00:00: to (SILVADENE) 00 radiated 1 % topical area up to cream three times daily and after each bath.. silver 2014-0 Yes Desquamated Apply Tom ris sulfADIAZIN 4-29 skin topically Hea lth E 00:00: to (SILVADENE) 00 radiated 1 % topical area up to cream three times daily and after each bath.. ibuprofen Yes Cervical 400mg Take 2 H arris (MOTRIN IB) 2-13 cancer tablets by Health 200 mg 00:00: mouth tablet 00 every 6 hours as needed for Pain. ibuprofen Yes Cervical 400mg Take 2 H arris (MOTRIN IB) 2-13 cancer tablets by Health 200 mg 00:00: mouth tablet 00 every 6 hours as needed for Pain. ibuprofen Yes Cervical 400mg Take 2 H [facility] (MOTRIN IB) 2-13 cancer tablets by Health 200 mg 00:00: mouth tablet 00 every 6 hours as needed for Pain. Immunizations Ordered Immunization Filled Immunization Date Status Commen ts Source Name Name FLUCELVAX QUAD PF 2021-02-[address] 00:00:00 [facility] FLUCELVAX QUAD PF 2021-02-[address] 00:00:00 [facility] FLUCELVAX QUAD 2021-02-[address] 00:00:00 [facility] PFIZER COVID-19 MRNA 2020-08-05 Completed [facility] VACCINATION 00:00:00 [facility] PFIZER COVID-19 MRNA 2020-08-05 Completed [facility] VACCINATION 00:00:00 [facility] PFIZER COVID-19 MRNA 2020-08-05 Completed [facility] VACCINATION 00:00:00 [facility] PFIZER COVID-19 MRNA 2020-07-08 Completed [facility] VACCINATION 00:00:00 [facility] PFIZER COVID-19 MRNA 2020-07-08 Completed [facility] VACCINATION 00:00:00 [facility] PFIZER COVID-19 MRNA 2020-07-08 Completed [facility]ist VACCINATION 00:00:00 [facility] Influenza, 2020-03-12 Completed [facility] [employer] Vaccine<FLUCELVAX>(M 00:00:00 ulti-Dose) Tdap (Tetanus 2020-03-12 Completed [facility] Toxoid, Reduced 00:00:00 Diphtheria Toxoid And Acellular Pertussis, Absorbed) Influenza, 2020-03-12 Completed [facility] Vaccine<FLUCELVAX>(M 00:00:00 ulti-Dose) Tdap (Tetanus 2020-03-12 Completed [facility] Toxoid, Reduced 00:00:00 Diphtheria Toxoid And Acellular Pertussis, Absorbed) Influenza, 2020-03-12 Completed [facility] Vaccine<FLUCELVAX>(M 00:00:00 ulti-Dose) Tdap (Tetanus 2020-03-12 Completed [facility] Toxoid, Reduced 00:00:00 Diphtheria Toxoid And Acellular Pertussis, Absorbed) Vital Signs Vital Name Observation Time Observation Value Comments Source Systolic blood 2022-02-20 01:13:29 129 mm[Hg] [facility] pressure Diastolic blood 2022-02-20 01:13:29 67 mm[Hg] [facility] pressure Heart rate 2022-02-20 01:13:29 60 /min [facility] Respiratory rate 2022-02-20 01:13:29 18 /min [facility] Oxygen saturation in 2022-02-20 01:13:29 96 /min [facility] Arterial blood by Pulse oximetry Body height 2022-02-19 20:30:00 162.6 cm [facility] Body weight 2022-02-19 20:30:00 79.379 kg [facility] BMI 2022-02-19 20:30:00 30.04 kg/m2 [facility] Body temperature 2022-02-19 20:29:09 36.61 Nydia [facility] pulse rate 2021-12-16 13:21:49 87 /min [facility] blood pressure, 2021-12-16 13:21:49 67 mm[Hg] [facility] diastolic [facility] blood pressure, 2021-12-16 13:21:49 132 mm[Hg] [facility] systolic Health pulse rate 2020-11-25 14:31:56 70 /min [facility] blood pressure, 2020-11-25 14:31:56 74 mm[Hg] [facility] diastolic Health blood pressure, 2020-11-25 14:31:56 113 mm[Hg] [facility] systolic Health pulse rate 2020-11-25 13:39:38 70 /min [facility] blood pressure, 2020-11-25 13:39:38 74 mm[Hg] [facility] diastolic Health blood pressure, 2020-11-25 13:39:38 113 mm[Hg] [facility] systolic Health Procedures Procedure Date / Time Performing Source Performed Clinician CT CHEST WO CONTRAST ABDOMEN WO 2022-02-20 Cristóbal Ovalle CONTRAST PELVIS WO CONTRAST 01:47:08 [facility] ECG ED PRELIMINARY INTERPRETATION 2022-02-20 Cristóbal Ovalle 01:34:30 [facility] HC COMPLETE BLD COUNT W/AUTO DIFF 2022-02-19 Eulalio Manning 21:40:00 [facility] COMPREHENSIVE METABOLIC PANEL 2022-02-19 Alee Manning [facility] 21:40:00 [facility] HCG QUALITATIVE, SERUM SCREEN 2022-02-19 Alee Manning [facility] 21:40:00 Hospital ESTIMATED GFR 2022-02-19 Alee Manning 21:40:00 [facility] ECG 12-LEAD 2022-02-19 Alee Manning 20:46:22 Hospital URINE CULTURE 2022-02-19 Alee Manning 20:34:00 [facility] URINALYSIS SCREEN AND MICROSCOPY, 2022-02-19 Eulalio Manning WITH REFLEX TO CULTURE 20:34:00 Hospital HEPATITIS B SURFACE ANTIGEN 2022-02-05 Eddie Farris Meth odist 15:30:00 Hospital HEPATITIS C ANTIBODY 2022-02-05 Eddie Farris 15:30:00 Hospital HIV 1/2 ANTIGEN/ANTIBODY, FOURTH 2022-02-05 Eddie Farris GENERATION, WITH REFLEXES 15:30:00 Hospit al HSV TYPE 1/2 COMBINED AB, IGM 2022-02-05 Eddie Farris [facility] 15:30:00 Hospital RPR WITH REFLEX TO TITER 2022-02-[address] 15:30:00 Hospital HEPATITIS C VIRUS (HCV), 2022-02-05 Eddie Farris QUANTITATIVE PCR 15:30:00 [facility] SURGICAL PATHOLOGY REQUEST 2021-12-26 Esthela Small [facility] 18:06:00 Hospital COLONOSCOPY 2021-12-26 Esthela Small Jainism 15:44:00 [facility] ESOPHAGOGASTRODUODENOSCOPY (EGD) 2021-12-26 Esthela Small Jainism 15:44:00 [facility] COVID-19 QUALITATIVE RT-PCR 2021-12-24 Esthela Small ethodist 12:41:00 [facility] THINPREP TIS AND HPV MRNA E6/E7 2021-12-18 Eddie Farris 18:34:00 [facility] ECG 12-LEAD 2021-11-28 Keith Carroll 15:26:34 [facility] TROPONIN T 2021-11-07 Zeyad Cohen 20:01:00 [facility] COVID-19 QUALITATIVE RT-PCR 2021-11-07 Zeyad Cohen 19:09:00 [facility] COVID-19 OMICRON VARIANT 2021-11-[address] QUALITATIVE RT-PCR 19:09:00 [facility] XR CHEST 2 VW 2021-11-07 Zeyad Cohen 18:51:38 [facility] ECG ED PRELIMINARY INTERPRETATION 2021-11-07 Karo Cohen 18:50:27 [facility] COMPREHENSIVE METABOLIC PANEL 2021-11-07 Zeyad Cohenodist 18:03:00 [facility] TROPONIN T 2021-11-07 Zeyad Cohen 18:03:00 [facility] HC COMPLETE BLD COUNT W/AUTO DIFF 2021-11-07 Karo Cohen 18:03:00 [facility] HCG QUALITATIVE, SERUM SCREEN 2021-11-07 Zeyad Cohen thodist 18:03:00 [facility] ESTIMATED GFR 2021-11-07 Zeyad Cohen 18:03:00 [facility] ECG 12-LEAD 2021-11-07 OghogLiborio louie Jainism 17:57:16 [facility] FL UGI W OR WO KUB 2021-11-03 Esthela Smallist 15:16:30 Hospital HEPATITIS C VIRUS (HCV), 2021-11-03 Esthela Small Meth odist QUANTITATIVE PCR 13:52:00 Hospital HEPATIC FUNCTION PANEL 2021-11-03 Esthela Small Method ist 13:52:00 [facility] XR CHEST 2 VW 2021-10-15 José Rider Jainism 02:52:42 Hospital COMPREHENSIVE METABOLIC PANEL 2021-10-15 Mario Maher thodist 01:15:00 [facility] TROPONIN T 2021-10-15 Mario Maher 01:15:00 [facility] B NATRIURETIC PEPTIDE 2021-10-15 Mario Maher 01:15:00 [facility] HC COMPLETE BLD COUNT W/AUTO DIFF 2021-10-15 Mario Maher 01:15:00 [facility] PROTHROMBIN TIME WITH INR 2021-10-15 Mario Maher ist 01:15:00 [facility] PARTIAL THROMBOPLASTIN TIME (PTT) 2021-10-15 Mario Maher 01:15:00 [facility] ESTIMATED GFR 2021-10-15 Mario Maher 01:15:00 [facility] ECG 12-LEAD 2021-10-15 Mario Maher 00:33:[address] [facility] [address] ANGIOGRAM PE CHEST 2021-10-12 Trung Courtney 17:55:52 Hospital HC COMPLETE BLD COUNT W/AUTO DIFF 2021-10-12 Trung Courtney 15:36:00 Hospital COMPREHENSIVE METABOLIC PANEL 2021-10-12 Trung Courtney ethodist 15:36:00 Hospital TROPONIN T 2021-10-12 Trung Courtney 15:36:00 Hospital B NATRIURETIC PEPTIDE 2021-10-12 Trung Courtney 15:36:00 Hospital CREATINE KINASE, TOTAL (CPK) 2021-10-12 Trung Courtney thodist 15:36:00 Hospital ESTIMATED GFR 2021-10-12 Trung Courtney 15:36:00 Hospital ECG ED PRELIMINARY INTERPRETATION 2021-10-12 Trung Courtney 15:20:39 Hospital URINE CULTURE 2021-10-12 Rajinder Ordoñez 15:17:00 [facility] URINALYSIS SCREEN AND MICROSCOPY, 2021-10-12 Arslan Ordoñez WITH REFLEX TO CULTURE 15:17:00 [facility] HCG QUALITATIVE, URINE SCREEN 2021-10-12 Rajinder Ordoñez 15:17:00 [facility] ECG 12-LEAD 2021-10-12 Rajinder Ordoñez 14:48:50 [facility] [place] AN ELECTIVE SUPRAGLOTTIC AIRWAY 2021-09-30 Ruddy Marie 12:10:00 Hospital DECOMPRESSION, ULNAR NERVE 2021-09-30 Rebecca Brownlee 12:06:00 [facility] COVID-19 QUALITATIVE RT-PCR 2021-09-26 Dulce Maria Pierre 14:23:00 [facility] PROTHROMBIN TIME WITH INR 2021-09-26 Antonio Pierre ist 14:23:00 [facility] PARTIAL THROMBOPLASTIN TIME (PTT) 2021-09-26 Keith Pierre 14:23:00 [facility] COMPREHENSIVE METABOLIC PANEL 2021-09-26 Me Gabby thodist 14:23:00 [facility] ESTIMATED GFR 2021-09-26 Rebecca Brownlee 14:23:00 [facility] HEMOGLOBIN A1C 2021-09-26 Rebecca Brownlee 14:23:00 [facility] CBC WITH PLATELET AND DIFFERENTIAL 2021-09-19 Lexie Esparza 07:10:00 Hospital THYROID STIMULATING HORMONE 2021-09-19 Peggy Esparza 07:10:00 Hospital XR ELBOW 3+ VW LEFT 2021-09-10 Rebecca Brownlee 15:28:27 [facility] CT ANGIOGRAM NECK W WO CONTRAST 2021-08-27 Brenda Retana 00:01:04 [facility] CT ANGIOGRAM HEAD W WO CONTRAST 2021-08-27 Brenda Retana 00:00:50 [facility] CT HEAD WO CONTRAST 2021-08-26 Brenda Retana 23:42:36 [facility] ECG ED PRELIMINARY INTERPRETATION 2021-08-26 Brenda Retana 23:22:45 [facility] HC COMPLETE BLD COUNT W/AUTO DIFF 2021-08-26 Brenda Retana 21:57:00 [facility] COMPREHENSIVE METABOLIC PANEL 2021-08-26 Peter Retanayssa Me thodist 21:57:00 [facility] TROPONIN T 2021-08-26 Brenda Retana Jainism 21:57:00 [facility] B NATRIURETIC PEPTIDE 2021-08-26 Mazin Brenda Jainism 21:57:00 [facility] HCG QUALITATIVE, SERUM SCREEN 2021-08-26 Brenda Retana [facility] 21:57:00 [facility] ESTIMATED GFR 2021-08-26 Brenda Retana 21:57:00 [facility] ECG 12-LEAD 2021-08-26 Brenda Retana 21:42:16 [facility] URINE CULTURE 2021-08-06 Myles Martin 22:27:00 [facility] URINALYSIS SCREEN AND MICROSCOPY, 2021-08-06 Myles Martin Si WITH REFLEX TO CULTURE 22:27:00 Hospital XR CHEST 2 VW 2021-08-06 Myles Martin 20:36:00 [facility] INFLUENZA ANTIGEN 2021-08-06 Susie Melton 20:10:00 [facility] RESPIRATORY PATHOGEN PANEL WITH 2021-08-06 Susie Melton COVID-19 RT-PCR 20:10:00 [facility] ECG ED PRELIMINARY INTERPRETATION 2021-08-06 Myles Martin Si 20:08:02 [facility] COMPREHENSIVE METABOLIC PANEL 2021-08-06 Susie Melton thodist 20:05:00 [facility] HC COMPLETE BLD COUNT W/AUTO DIFF 2021-08-06 Aamir Melton 20:05:00 [facility] TROPONIN T 2021-08-06 Susie Melton 20:05:00 [facility] LIPASE LEVEL 2021-08-06 Susie Melton 20:05:00 [facility] ESTIMATED GFR 2021-08-06 Susie Melton 20:05:00 [facility] ECG 12-LEAD 2021-08-06 Susie Melton 19:55:29 [facility] TROPONIN T 2021-08-01 Brenda Retana Jainism 03:32:00 [facility] ECG ED PRELIMINARY INTERPRETATION 2021-08-01 Nelson Villagran i Jainism 02:37:45 Hospital HC COMPLETE BLD COUNT W/AUTO DIFF 2021-08-01 Brenda Retana Jainism 00:35:00 [facility] COMPREHENSIVE METABOLIC PANEL 2021-08-01 Brenda Retana Me thodist 00:35:00 [facility] TROPONIN T 2021-08-01 Peter Retanayssa Jainism 00:35:00 [facility] B NATRIURETIC PEPTIDE 2021-08-01 Mazin Brenda Jainism 00:35:00 [facility] ESTIMATED GFR 2021-08-01 Brenda Retana Jainism 00:35:00 [facility] ECG 12-LEAD 2021-08-01 Brenda Retana Jainism 00:23:19 [facility] TROPONIN T 2021-07-30 Jaida Sales 21:35:00 Hospital ECG ED PRELIMINARY INTERPRETATION 2021-07-30 Myles Martin Si Jainism 19:53:48 Hospital XR CHEST 2 VW 2021-07-30 Myles Martin Jainism 19:37:56 [facility] COMPREHENSIVE METABOLIC PANEL 2021-07-30 Jaida Sales 18:40:00 Hospital HC COMPLETE BLD COUNT W/AUTO DIFF 2021-07-30 Jaida Sales Jainism 18:40:00 Hospital TROPONIN T 2021-07-30 Jaida Sales 18:40:00 Hospital B NATRIURETIC PEPTIDE 2021-07-[address] 18:40:00 Hospital ESTIMATED GFR 2021-07-30 Jaida Sales 18:40:00 Hospital ECG 12-LEAD 2021-07-30 Jaida Sales 18:33:57 Hospital MAMMO BREAST SCREEN TOMOSYNTHESIS 2021-07-28 Shell Vargas Jainism BILATERAL 14:20:00 [facility] ECG ED PRELIMINARY INTERPRETATION 2021-07-01 Nelson Villagran i Jainism 00:04:28 Hospital TROPONIN T 2021-06-30 Mario Maher Jainism 23:09:00 [facility] RESPIRATORY PATHOGEN PANEL WITH 2021-06-30 Mario Maher COVID-19 RT-PCR 21:09:00 [facility] XR CHEST 2 VW 2021-06-30 Mario Maher 20:40:51 [facility] COMPREHENSIVE METABOLIC PANEL 2021-06-30 Mario Maher [facility] 20:06:00 [facility] TROPONIN T 2021-06-30 Mario Maher 20:06:00 [facility] B NATRIURETIC PEPTIDE 2021-06-30 Mario Maher 20:06:00 [facility] HC COMPLETE BLD COUNT W/AUTO DIFF 2021-06-30 Mario Maher 20:06:00 [facility] ESTIMATED GFR 2021-06-30 Mario Maher 20:06:00 [facility] ECG 12-LEAD 2021-06-30 Mario Maher 19:54:19 [facility] POC URINALYSIS DIPSTICK 2021-06-16 Eddie Farris t 18:20:00 [facility] THINPREP TIS PAP AND HPV MRNA 2021-06-16 Eddie Farris [facility] E6/E7 REFLEX HPV 16,18/45 18:17:00 Hospit al URINALYSIS, COMPLETE, WITH REFLEX 2021-06-16 Eddie Farris TO CULTURE 17:55:00 [facility] XR SHOULDER 2+ VW RIGHT 2021-06-02 Roger Ling t 17:52:26 [facility] MRI LUMBAR SPINE WO CONTRAST 2021-05-09 Shell Vargas Met hodist 18:44:08 [facility] MRI CERVICAL SPINE WO CONTRAST 2021-05-05 Shell Vargas ethodist 14:11:49 [facility] CT LUMBAR SPINE WO CONTRAST 2021-05-04 Liborio Herrera hodist 22:36:[address] THORACIC SPINE WO CONTRAST 2021-05-04 Liborio Herrera ethodist 22:35:58 Hospital TROPONIN T 2021-04-13 Candelaria Lui 01:33:00 Hospital XR CHEST 2 VW 2021-04-12 Candelaria Lui 23:31:00 [facility] COMPREHENSIVE METABOLIC PANEL 2021-04-12 Candelaria Lui Me thodist 22:56:00 Hospital LIPASE LEVEL 2021-04-12 Candelaria Lui 22:56:00 Hospital HC COMPLETE BLD COUNT W/AUTO DIFF 2021-04-12 Candelaria Lui 22:56:00 Hospital TROPONIN T 2021-04-12 Candelaria Lui 22:56:00 Hospital ESTIMATED GFR 2021-04-12 Candelaria Lui 22:56:[address] RENAL STONE PROTOCOL 2021-04-12 Candelaria Lui t 22:36:21 Hospital ECG 12-LEAD 2021-04-12 Candelaria Lui 21:52:29 Hospital URINE CULTURE 2021-04-12 Candelaria Lui 21:52:00 Hospital URINALYSIS SCREEN AND MICROSCOPY, 2021-04-12 Candelaria Lui WITH REFLEX TO CULTURE 21:52:00 Hospital ECG ED PRELIMINARY INTERPRETATION 2021-04-12 Candelaria Lui 21:47:56 [facility] Plan of Care Planned Activity Planned Date Details Comments Source Future Scheduled 2024-09-11 [facility]:00 malignant neoplasm of cervix (procedure) [code = 502863817] Future Scheduled 2024-09-11 [facility] 00:00:00 malignant neoplasm of cervix (procedure) [code = 117859607] Future Scheduled 2024-09-11 [facility] 00:00:00 malignant neoplasm of cervix (procedure) [code = 590714680] Future Scheduled 2024-09-11 [facility] 00:00:00 malignant neoplasm of cervix (procedure) [code = 080838258] Future Scheduled 2024-09-11 [facility] 00:00:00 malignant neoplasm of cervix (procedure) [code = 215515596] Future Scheduled 2024-09-11 [facility] 00:00:00 malignant neoplasm of cervix (procedure) [code = 672298826] Future Scheduled 2022-03-05 HEPATITIS B VACCINES Met [facility] Test 00:08:56 (1 of 3 - 3-dose series) [code = HEPATITIS B VACCINES (1 of 3 - 3-dose series)] Future Scheduled 2022-03-05 Pneumococcal Vaccine: [facility] Test 00:08:56 Pediatrics (0 to 5 Years) and At-Risk Patients (6 to 64 Years) (1 - PCV) [code = Pneumococcal Vaccine: Pediatrics (0 to 5 Years) and At-Risk Patients (6 to 64 Years) (1 - PCV)] Future Scheduled 2022-03-05 COLONOSCOPY SCREENING [facility] Test 00:08:56 [code = COLONOSCOPY SCREENING] Future Scheduled 2022-03-05 SHINGLES VACCINES (1 Met [facility] Test 00:08:56 of 2) [code = SHINGLES VACCINES (1 of 2)] Future Scheduled 2022-03-05 COVID-19 VACCINE (3 - [facility] Test 00:08:56 Booster for Pfizer series) [code = COVID-19 VACCINE (3 - Booster for Pfizer series)] Future Scheduled 2022-03-05 INFLUENZA VACCINE [facility] Test 00:08:56 [code = INFLUENZA VACCINE] Future Scheduled 2022-03-05 BREAST CANCER [facility] Test 00:08:56 SCREENING [code = BREAST CANCER SCREENING] Future Scheduled 2022-03-05 Screening for [facility] Test 00:08:56 malignant neoplasm of cervix (procedure) [code = 603727701] Future Scheduled 2022-03-05 HEPATITIS B VACCINES Met [facility] Test 00:08:56 (1 of 3 - 3-dose series) [code = HEPATITIS B VACCINES (1 of 3 - 3-dose series)] Future Scheduled 2022-03-05 Pneumococcal Vaccine: [facility] Test 00:08:56 Pediatrics (0 to 5 Years) and At-Risk Patients (6 to 64 Years) (1 - PCV) [code = Pneumococcal Vaccine: Pediatrics (0 to 5 Years) and At-Risk Patients (6 to 64 Years) (1 - PCV)] Future Scheduled 2022-03-05 COLONOSCOPY SCREENING [facility] Test 00:08:56 [code = COLONOSCOPY SCREENING] Future Scheduled 2022-03-05 SHINGLES VACCINES (1 Met [facility] Test 00:08:56 of 2) [code = SHINGLES VACCINES (1 of 2)] Future Scheduled 2022-03-05 COVID-19 VACCINE (3 - [facility] Test 00:08:56 Booster for Pfizer series) [code = COVID-19 VACCINE (3 - Booster for Pfizer series)] Future Scheduled 2022-03-05 INFLUENZA VACCINE [facility] Test 00:08:56 [code = INFLUENZA VACCINE] Future Scheduled 2022-03-05 BREAST CANCER [facility] Test 00:08:56 SCREENING [code = BREAST CANCER SCREENING] Future Scheduled 2022-03-05 Screening for [facility] Test 00:08:56 malignant neoplasm of cervix (procedure) [code = 864989506] Future Scheduled 2022-02-22 HEPATITIS B VACCINES Met [facility] Test 22:17:15 (1 of 3 - 3-dose series) [code = HEPATITIS B VACCINES (1 of 3 - 3-dose series)] Future Scheduled 2022-02-22 Pneumococcal Vaccine: [facility] Test 22:17:15 Pediatrics (0 to 5 Years) and At-Risk Patients (6 to 64 Years) (1 - PCV) [code = Pneumococcal Vaccine: Pediatrics (0 to 5 Years) and At-Risk Patients (6 to 64 Years) (1 - PCV)] Future Scheduled 2022-02-22 COLONOSCOPY SCREENING [facility] Test 22:17:15 [code = COLONOSCOPY SCREENING] Future Scheduled 2022-02-22 SHINGLES VACCINES (1 Met [facility] Test 22:17:15 of 2) [code = SHINGLES VACCINES (1 of 2)] Future Scheduled 2022-02-22 COVID-19 VACCINE (3 - [facility] Test 22:17:15 Booster for Pfizer series) [code = COVID-19 VACCINE (3 - Booster for Pfizer series)] Future Scheduled 2022-02-22 INFLUENZA VACCINE [facility] Test 22:17:15 [code = INFLUENZA VACCINE] Future Scheduled 2022-02-22 BREAST CANCER [facility] Test 22:17:15 SCREENING [code = BREAST CANCER SCREENING] Future Scheduled 2022-02-22 Screening for [facility] Test 22:17:15 malignant neoplasm of cervix (procedure) [code = 385876666] Future Scheduled 2022-01-10 IMM Influenza Seasonal [facility] 00:00:00 (>/= 19 yrs) [code = IMM Influenza Seasonal (>/= 19 yrs)] Future Scheduled 2022-01-10 IMM Influenza Seasonal [facility] 00:00:00 (>/= 19 yrs) [code = IMM Influenza Seasonal (>/= 19 yrs)] Future Scheduled 2022-01-10 IMM Influenza Seasonal [facility] 00:00:00 (>/= 19 yrs) [code = IMM Influenza Seasonal (>/= 19 yrs)] Future Scheduled 2020-01-14 Breast Cancer Scrn [facility] 00:00:00 (Yearly) [code = Breast Cancer Scrn (Yearly)] Future Scheduled 2020-01-14 Breast Cancer Scrn [facility] 00:00:00 (Yearly) [code = Breast Cancer Scrn (Yearly)] Future Scheduled 2020-01-14 Breast Cancer Scrn [facility] 00:00:00 (Yearly) [code = Breast Cancer Scrn (Yearly)] Future Scheduled 2019 [facility] 00:[facility]:00 malignant neoplasm of colon (procedure) [code = 144850005] Future Scheduled 2019 [facility] 00:00:00 malignant neoplasm of colon (procedure) [code = 702978806] Future Scheduled 2019 [facility] 00:00:00 malignant neoplasm of colon (procedure) [code = 821858444] Future Scheduled 1975 Imm Pneumococcal 0-64 [facility] 00:00:00 (1 - PCV) [code = Imm Pneumococcal 0-64 (1 - PCV)] Future Scheduled 1975 Imm Pneumococcal 0-64 [facility] 00:00:00 (1 - PCV) [code = Imm Pneumococcal 0-64 (1 - PCV)] Future Scheduled 1975 Imm Pneumococcal 0-64 [facility] 00:00:00 (1 - PCV) [code = Imm Pneumococcal 0-64 (1 - PCV)] Future Scheduled 1972 Dental X-Ray: [facility] 00:00:00 Bitewings [code = Dental X-Ray: Bitewings] Future Scheduled 1972 Dental [facility]-Ray: [facility] 00:00:00 Bitewings [code = Dental X-Ray: Bitewings] Future Scheduled 1972 Dental [facility]-Ray: [facility] 00:00:00 Bitewings [code = Dental X-Ray: Bitewings] Future Scheduled 1969 COVID-19 Vaccine (#1) [facility] 00:00:00 [code = COVID-19 Vaccine (#1)] Future Scheduled 1969 COVID-19 Vaccine (#1) [facility] 00:00:00 [code = COVID-19 Vaccine (#1)] Future Scheduled 1969 COVID-19 Vaccine (#1) [facility] 00:00:00 [code = COVID-19 Vaccine (#1)] Future Scheduled 1969 Dental Oral Exam [code [facility] 00:00:00 = Dental Oral Exam] Future Scheduled 1969 [facility] 00:[facility]:00 Prophylaxis/Periodonta l Maintenance [code = Dental Prophylaxis/Periodonta l Maintenance] Future Scheduled 1969 Dental X-Ray: Full [facility] 00:00:00 Mouth [code = Dental X-Ray: Full Mouth] Future Scheduled 1969 Fluoride Varnish [code [facility] 00:00:00 = Fluoride Varnish] Future Scheduled 1969 Dental Oral Exam [code [facility] 00:00:00 = Dental Oral Exam] Future Scheduled 1969 [facility] 00:00:00 Prophylaxis/Periodonta l Maintenance [code = Dental Prophylaxis/Periodonta l Maintenance] Future Scheduled 1969 Dental X-Ray: Full [facility] 00:00:00 Mouth [code = Dental X-Ray: Full Mouth] Future Scheduled 1969 Fluoride Varnish [code [facility] 00:00:00 = Fluoride Varnish] Future Scheduled 1969 Dental Oral Exam [code [facility] 00:00:00 = Dental Oral Exam] Future Scheduled 1969 [facility] 00:00:00 Prophylaxis/Periodonta l Maintenance [code [...] Clinicians Facility Department ID 2022-02-19 2022-02-19 Emergency Vasquez, 1.2.840.1 [id number] 2099 [id number] Methodi 18:09:00 20:16:[address] [place] 3.430.2.7 Hosp shai .3.742995 l .8 2022-02-19 2022-02-19 Emergency Vasquez, 1.2.840.1 [id number] 2099 [id number] Methodi 18:09:00 20:16:[address] [place] 3.430.2.7 Hosp shai .3.044368 l .8 2022-02-12 2022-02-12 Orders Lopez, 1.2.840.1 [id number] Methodi 00:00:00 00:00:00 Only Maureen 98701.1.[address] 3.430.2.7 Hospit a .3.311522 l .8 2022-02-12 2022-02-12 Orders Lopez, 1.2.840.1 [id number] Methodi 00:00:00 00:00:00 Only Maureen 96729.1.[address] 3.430.2.7 Hospit a .3.716044 l .8 2022-02-11 2022-02-11 Orders Lopez, 1.2.840.1 [id number] Methodi 00:00:00 00:00:00 Only Maureen 47215.1.[address] 3.430.2.7 Hospit a .3.630775 l .8 2022-02-11 2022-02-11 Telephone Prasanth, 1.2.840.1 [id number] 2099 [id number] Methodi 00:00:00 00:00:00 Eddie Franco 47866.1.[address] 3.430.2.7 Hospit a .3.253182 l .8 2022-02-11 2022-02-11 Orders Lopez, 1.2.840.1 [id number] Methodi 00:00:00 00:00:00 Only Maureen 52288.1.[address] 3.430.2.7 Hospit a .3.688850 l .8 2022-02-11 2022-02-11 Telephone Prasanth, 1.2.840.1 [id number] 2099 [id number] Methodi 00:00:00 00:00:00 Eddie Franco 53485.1.[address] 3.430.2.7 Hospit a .3.726324 l .8 2022-02-09 2022-02-09 Outpatient COH COH PDPFCCG ETQ COH 00:00:00 00:00:00 [id number] 2022-02-09 2022-02-09 Telephone Prasanth, 1.2.840.1 [id number] 2099 [id number] Methodi 00:00:00 00:00:[address] 3.430.2.7 Hospit a .3.820068 l .8 2022-02-09 2022-02-09 Telephone Prasanth, 1.2.840.1 [id number] 2099 [id number] Methodi 00:00:00 00:00:[address] 3.430.2.7 Hospit a .3.314021 l .8 2022-02-05 2022-02-05 Lab Prasanth, 1.2.840.1 [id number] 8244 Methodi 10:50:00 10:55:00 Eddie Franco 66577.1.[address] 3.430.2.7 Hospit a .3.230710 l .8 2022-02-05 2022-02-05 Lab Prasanth, 1.2.840.1 [id number] 1677 Methodi 10:50:00 10:55:00 Eddie Franco 46377.1.[address] 3.430.2.7 Hospit a .3.088553 l .8 2022-02-05 2022-02-05 Office Prasanth, 1.2.840.1 [id number] 5658 Methodi 09:40:00 10:31:06 Visit Eddie C. 72558.1.[address] 3.430.2.7 Hospit a .3.647902 l .8 2022-02-05 2022-02-05 Office Prasanth, 1.2.840.1 [id number] 5249 Methodi 09:40:00 10:31:06 Visit Eddie Franco 21976.1.[address] 3.430.2.7 Hospit a .3.692871 l .8 2022-02-05 2022-02-05 Travel 1.2.840.1 1.2.242.040 [id number] [id number] Methodi 00:00:00 00:00:[address] 3.430.2.7 0.2.7.3.698 Ho spita .3.092529 084.8 l .8 2022-02-05 2022-02-05 Refill Istre, 1.2.840.1 [id number] 4095 Methodi 00:00:00 00:00:[address] Doe 3.430.2.7 Hospi ta .3.646753 l .8 2022-02-05 2022-02-05 Refill Istre, 1.2.840.1 [id number] 8274 Methodi 00:00:00 00:00:[address] Doe 3.430.2.7 Hospi ta .3.129310 l .8 2022-02-05 2022-02-05 Travel 1.2.840.1 1.2.330.629 [id number] [id number] Methodi 00:00:00 00:00:[address] 3.430.2.7 0.2.7.3.698 Ho spita .3.421585 084.8 l .8 2022-02-03 2022-02-03 Telephone Prasanth, 1.2.840.1 [id number] 2100 [id number] Methodi 00:00:00 00:00:[address] 3.430.2.7 Hospit a .3.144492 l .8 2022-02-03 2022-02-03 Telephone Prasanth, 1.2.840.1 [id number] 2099 [id number] Methodi 00:00:00 00:00:00 Eddie Franco [address]16.1.[address] 3.430.2.7 Hospit a .3.405383 l .8 2022-01-01 2022-01-01 Telephone Alessio, 1.2.840.1 [id number] 2100 [id number] Methodi 00:00:00 00:00:[address] 3.430.2.7 Hospit a .3.633450 l .8 2022-01-01 2022-01-01 Telephone Alessio, 1.2.840.1 [id number] 2100 [id number] Methodi 00:00:00 00:00:[address] 3.430.2.7 Hospit a .3.402596 l .8 2021-12-26 2021-12-26 Surgery [facility], 1.2.840.1 [id number] 6111 Methodi 11:00:00 11:45:[address] Hasan 3.430.2.7 Hospit a .3.466633 l .8 2021-12-26 2021-12-26 Surgery [facility], 1.2.840.1 [id number] 7619 Methodi 11:00:00 11:45:[address] Hasan 3.430.2.7 Hospit a .3.539944 l .8 2021-12-26 2021-12-26 [facility], 1.2.840.1 [id number] 92613 Methodi 10:21:00 11:28:00 Encounter Proctor 09271.1.[address] Hasan 3.430.2.7 Hospit a .3.910013 l .8 2021-12-26 2021-12-26 [facility], 1.2.840.1 [id number] Methodi 10:21:00 11:28:00 Encounter Proctor 52749.1.[address] Hasan 3.430.2.7 Hospit a .3.315504 l .8 2021-12-26 2021-12-26 Anesthesia PennieHans acharya 1.2.840.1 [id number] Methodi 10:44:00 11:06:[address] Edward [address].1.[address] 3.430.2.7 Hospit a .3.274312 l .8 2021-12-26 2021-12-26 Anesthesia PennieHans acharya 1.2.840.1 [id number] Methodi 10:44:00 11:06:[address] Event Edward [address]897.1.[address] 3.430.2.7 Hospit a .3.569551 l .8 2021-12-26 2021-12-26 Travel 1.2.840.1 1.2.525.352 9114 072163 Methodi 00:00:00 00:00:[address] 3.430.2.7 0.2.7.3.698 Ho spita .3.160028 084.8 l .8 2021-12-26 2021-12-26 Travel 1.2.840.1 1.2.943.709 6725 693866 Methodi 00:00:00 00:00:[address] 3.430.2.7 0.2.7.3.698 Ho spita .3.563165 084.8 l .8 2021-12-24 2021-12-24 Lab Small, 1.2.840.1 [id number] 072429 3631 Methodi 08:00:00 08:15:[address] Hasan 3.430.2.7 Hospit a .3.395773 l .8 2021-12-24 2021-12-24 Lab Staci, 1.2.840.1 316754886 258018 6013 Methodi 08:00:00 08:15:[address] Hasan 3.430.2.7 Hospit a .3.682882 l .8 2021-12-24 2021-12-24 Orders Tran, 1.2.840.1 038547360 794997 8477 Methodi 00:00:00 00:00:00 Only Kortney 90151.1.[address] 3.430.2.7 Hospit a .3.598211 l .8 2021-12-24 2021-12-24 Orders Tran, 1.2.840.1 000292900 553103 1499 Methodi 00:00:00 00:00:00 Only Kortney 89462.1.[address] 3.430.2.7 Hospit a .3.121318 l .8 2021-12-18 2021-12-18 Office Prasanth, 1.2.840.1 337696412 313611 1500 Methodi 11:00:00 13:02:01 Visit Eddie Franco 50084.1.[address] 3.430.2.7 Hospit a .3.948668 l .8 2021-12-18 2021-12-18 Office Prasanth, 1.2.840.1 [id number] 452029 3962 Methodi 11:00:00 13:02:01 Visit Eddie Franco 99084.1.[address] 3.430.2.7 Hospit a .3.628054 l .8 2021-12-18 2021-12-18 Travel 1.2.840.1 1.2.382.164 6917 763409 Methodi 00:00:00 00:00:[address] 3.430.2.7 0.2.7.3.698 Ho spita .3.029801 084.8 l .8 2021-12-18 2021-12-18 Travel 1.2.840.1 1.2.148.113 0502 180029 Methodi 00:00:00 00:00:[address] 3.430.2.7 0.2.7.3.698 Ho spita .3.028327 084.8 l .8 2021-12-16 2021-12-16 Office Doug Estevez [facility] Encounter/ Legacy 00:00:00 00:00:00 Visit Bijan Carson [id number] [facility] 980270 [facility] 2021-12-09 2021-12-09 Refill Leggett, 1.2.840.1 [id number] 2099385 Methodi 00:00:00 00:00:[address] 3.430.2.7 Hospit a .3.489140 l .8 2021-12-09 2021-12-09 Refill Leggett, 1.2.840.1 242855852 2099385 Methodi 00:00:00 00:00:[address] 3.430.2.7 Hospit a .3.101563 l .8 2021-11-28 2021-11-28 [facility] 1.2.840.1 [id number] 422 4332444 Methodi 10:15:00 10:52:48 [address] Pimprapa 35267.1.[address] 3.430.2.7 Hospit a .3.749531 l .8 2021-11-28 2021-11-28 [facility], 1.2.840.1 [id number] 239 7799813 Methodi 10:15:00 10:52:48 Visit Pimprapa 95052.1.[address] 3.430.2.7 Hospit a .3.562502 l .8 2021-11-28 2021-11-28 Travel 1.2.840.1 1.2.971.708 6576 442500 Methodi 00:00:00 00:00:[address] 3.430.2.7 0.2.7.3.698 Ho spita .3.705088 084.8 l .8 2021-11-28 2021-11-28 Travel 1.2.840.1 1.2.584.765 2043 913943 Methodi 00:00:00 00:00:[address] 3.430.2.7 0.2.7.3.698 Ho spita .3.652344 084.8 l .8 2021-11-17 2021-11-17 Office Josiahe, 1.2.840.1 918002180 902913 8228 Methodi 09:00:00 09:30:00 Visit Juana 24650.1.[address] Kelley 3.430.2.7 Hospit a .3.055171 l .8 2021-11-17 2021-11-17 Office Fabby, 1.2.840.1 617850136 464917 4863 Methodi 09:00:00 09:30:00 Visit Juana 62304.1.[address] Kelley 3.430.2.7 Hospit a .3.436775 l .8 2021-11-17 2021-11-17 Travel 1.2.840.1 1.2.660.120 1146 947483 Methodi 00:00:00 00:00:[address] 3.430.2.7 0.2.7.3.698 Ho spita .3.652896 084.8 l .8 2021-11-17 2021-11-17 Travel 1.2.840.1 1.2.308.659 4687 037446 Methodi 00:00:00 00:00:[address] 3.430.2.7 0.2.7.3.698 Ho spita .3.747825 084.8 l .8 2021-11-14 2021-11-14 Orders Istre, 1.2.840.1 780171904 020183 0931 Methodi 00:00:00 00:00:00 Only Shell 93008.1.[address] Doe 3.430.2.7 Hospi ta .3.993301 l .8 2021-11-14 2021-11-14 Orders Istre, 1.2.840.1 441114694 759813 9609 Methodi 00:00:00 00:00:00 Only Shell 38584.1.[address] Severn 3.430.2.7 Hospi ta .3.632614 l .8 2021-11-11 2021-11-11 Telemedici Istre, 1.2.840.1 826753654 700 0966749 Methodi 10:00:00 10:40:34 ne Shell 55948.1.[address] Doe 3.430.2.7 Hospi ta .3.215047 l .8 2021-11-11 2021-11-11 Telemedici Istre, 1.2.840.1 409228314 274 7496379 Methodi 10:00:00 10:40:34 ne Shell 41682.1.[address] Severn 3.430.2.7 Hospi ta .3.293730 l .8 2021-11-07 2021-11-07 Emergency Noel, 1.2.840.1 257126109 2099 357951 Methodi 14:04:00 15:46:[address] Kirsten 3.430.2.7 Hospit a .3.856994 l .8 2021-11-07 2021-11-07 Emergency Noel, 1.2.840.1 317633204 2099 684527 Methodi 14:04:00 15:46:[address] Kirsten 3.430.2.7 Hospit a .3.273353 l .8 2021-11-07 2021-11-07 Travel 1.2.840.1 1.2.936.438 6896 657407 Methodi 00:00:00 00:00:[address] 3.430.2.7 0.2.7.3.698 Ho spita .3.469095 084.8 l .8 2021-11-07 2021-11-07 Travel 1.2.840.1 1.2.039.780 4803 381762 Methodi 00:00:00 00:00:[address] 3.430.2.7 0.2.7.3.698 Ho spita .3.662103 084.8 l .8 2021-11-03 2021-11-03 Lab Satci, 1.2.840.1 825194244 062934 6859 Methodi 08:25:00 08:30:[address] Hasan 3.430.2.7 Hospit a .3.815953 l .8 2021-11-03 2021-11-03 Lab Staci, 1.2.840.1 616505666 217762 6245 Methodi 08:25:00 08:30:[address] Hasan 3.430.2.7 Hospit a .3.144822 l .8 2021-11-03 2021-11-03 Telephone Mccallum, 1.2.840.1 443968480 2100 977282 Methodi 00:00:00 00:00:[address] 3.430.2.7 Hospit a .3.359377 l .8 2021-11-03 2021-11-03 Travel 1.2.840.1 1.2.795.972 5189 266098 Methodi 00:00:00 00:00:[address] 3.430.2.7 0.2.7.3.698 Ho spita .3.749850 084.8 l .8 2021-11-03 2021-11-03 [facility] [id number] 623 [place] 00:00:00 00:00:00 PROCTOR [address] 2021-11-03 2021-11-03 Telephone Mccallum, 1.2.840.1 145220802 2100 427335 Methodi 00:00:00 00:00:[address] 3.430.2.7 Hospit a .3.796456 l .8 2021-11-03 2021-11-03 Travel 1.2.840.1 1.2.298.682 1752 415113 Methodi 00:00:00 00:00:[address] 3.430.2.7 0.2.7.3.698 Ho spita .3.958497 084.8 l .8 2021-10-29 2021-10-29 Documentat Judd, 1.2.840.1 296204348 2 178772644 Methodi 00:00:00 00:00:00 ion Amanda 99559.1.[address] 3.430.2.7 Hospit a .3.337494 l .8 2021-10-29 2021-10-29 Prep for Judd, 1.2.840.1 894504776 893 4658723 Methodi 00:00:00 00:00:00 Surgery Amanda 08959.1.[address] 3.430.2.7 Hospit a .3.305390 l .8 2021-10-29 2021-10-29 Telephone Judd, 1.2.840.1 091045412 21 60288191 Methodi 00:00:00 00:00:[address] 3.430.2.7 Hospit a .3.297644 l .8 2021-10-29 2021-10-29 Travel 1.2.840.1 1.2.754.494 9929 259447 Methodi 00:00:00 00:00:[address] 3.430.2.7 0.2.7.3.698 Ho spita .3.379623 084.8 l .8 2021-10-29 2021-10-29 Documentat Judd, 1.2.840.1 256340328 2 078434188 Methodi 00:00:00 00:00:00 ion Amanda 06015.1.[address] 3.430.2.7 Hospit a .3.362137 l .8 2021-10-29 2021-10-29 Prep for Binta, 1.2.840.1 642954591 148 8871127 Methodi 00:00:00 00:00:00 Surgery Amanda 27470.1.[address] 3.430.2.7 Hospit a .3.676920 l .8 2021-10-29 2021-10-29 Telephone Binta, 1.2.840.1 123386754 21 97729394 Methodi 00:00:00 00:00:[address] 3.430.2.7 Hospit a .3.976197 l .8 2021-10-29 2021-10-29 Travel 1.2.840.1 1.2.967.852 9715 890545 Methodi 00:00:00 00:00:[address] 3.430.2.7 0.2.7.3.698 Ho spita .3.395220 084.8 l .8 2021-10-22 2021-10-22 Office Kem, 1.2.840.1 881199580 725 3046405 Methodi 09:40:00 10:17:00 Visit Rebecca Altagracia 04091.1.[address] 3.430.2.7 Hospit a .3.875887 l .8 2021-10-22 2021-10-22 Office Kem, 1.2.840.1 140369014 844 1348945 Methodi 09:40:00 10:17:00 Visit Rebeccawellington Nguyen 96733.1.[address] 3.430.2.7 Hospit a .3.182611 l .8 2021-10-22 2021-10-22 Travel 1.2.840.1 1.2.773.437 9071 662832 Methodi 00:00:00 00:00:[address] 3.430.2.7 0.2.7.3.698 Ho spita .3.028718 084.8 l .8 2021-10-22 2021-10-22 Travel 1.2.840.1 1.2.852.087 8877 038573 Methodi 00:00:00 00:00:[address] 3.430.2.7 0.2.7.3.698 Ho spita .3.721434 084.8 l .8 2021-10-14 2021-10-15 Emergency Adry, 1.2.840.1 354421539 805 9391562 Methodi 21:57:00 00:06:00 José H 74522.1.[address] 3.430.2.7 Hospit a .3.724143 l .8 2021-10-14 2021-10-15 Emergency Adry, 1.2.840.1 962329874 960 7316614 Methodi 21:57:00 00:06:00 José H 85828.1.[address] 3.430.2.7 Hospit a .3.817330 l .8 2021-10-12 2021-10-12 Emergency Courtney, 1.2.840.1 856000366 2099 212590 Methodi 10:13:00 14:37:[address]ann [address]902.1.[address] 3.430.2.7 Hospit a .3.029641 l .8 2021-10-12 2021-10-12 Emergency Courtney, 1.2.840.1 136510107 2100 190700 Methodi 10:13:00 14:37:[address]ann 7[address]72.1.[address] 3.430.2.7 Hospit a .3.915208 l .8 2021-10-09 2021-10-09 Telephone Juan Carlos Rivers 1.2.840.1 108845216 9947643401 Methodi 00:00:00 00:00:[address] 3.430.2.7 Hospit a .3.222561 l .8 2021-10-09 2021-10-09 Telephone Juan Carlos Rivers 1.2.840.1 886400342 2192696604 Methodi 00:00:00 00:00:[address] 3.430.2.7 Hospit a .3.134424 l .8 2021-10-09 2021-10-09 Orders Istre, 1.2.840.1 354069131 624576 7357 Methodi 00:00:00 00:00:00 Only Shell 39464.1.[address] Severn 3.430.2.7 Hospi ta .3.762036 l .8 2021-10-09 2021-10-09 Telephone Tita Juan Carlos 1.2.840.1 114206219 0997317384 Methodi 00:00:00 00:00:[address] 3.430.2.7 Hospit a .3.775446 l .8 2021-10-09 2021-10-09 Telephone [facility] 1.2.840.1 976068559 9789911637 Methodi 00:00:00 00:00:[address] 3.430.2.7 Hospit a .3.001686 l .8 2021-10-09 2021-10-09 Orders Istre, 1.2.840.1 307290878 182296 3168 Methodi 00:00:00 00:00:00 Only Shell 93595.1.[address] Doe 3.430.2.7 Hospi ta .3.707520 l .8 2021-10-02 2021-10-02 [facility].840[facility]1 [id number] 101 1576484 Methodi 00:00:00 00:00:[address] 3.430.2.7 Hospit a .3.199218 l .8 2021-10-02 2021-10-02 Telephone Amerman, 1.2.840.1 670025545 386 2468896 Methodi 00:00:00 00:00:[address] 3.430.2.7 Hospit a .3.208227 l .8 2021-09-30 2021-09-30 Surgery Kem, 1.2.840.1 769259230 127 5898558 Methodi 07:15:00 09:02:00 Rebecca Nguyen 64238.1.[address] 3.430.2.7 Hospit a .3.761246 l .8 2021-09-30 2021-09-30 Surgery Kem, 1.2.840.1 515515094 116 8968798 Methodi 07:15:00 09:02:00 Rebecca Nguyen 32165.1.[address] 3.430.2.7 Hospit a .3.369045 l .8 2021-09-30 2021-09-30 [facility] Kem, 1.2.840.1 674259472 21 10820620 Methodi 06:02:00 08:50:00 Encounter Rebecca Nguyen 02657.1.[address] 3.430.2.7 Hospit a .3.024887 l .8 2021-09-30 2021-09-30 [facility] Kem, 1.2.840.1 963990701 21 49830715 Methodi 06:02:00 08:50:00 Encounter Rebecca Nguyen 06237.1.[address] 3.430.2.7 Hospit a .3.945947 l .8 2021-09-30 2021-09-30 Anesthesia Tomas Mattson W. 1.2.840.1 1045 20548 4334121735 Methodi 07:05:00 08:04:00 Event Sunita Marie 46291.1.[address] 3.430.2.7 Hospit a .3.608043 l .8 2021-09-30 2021-09-30 Anesthesia Tomas Mattson W. 1.2.840.1 1045 63048 4892148803 Methodi 07:05:00 08:04:00 Event Sunita Marie 92863.1.[address] 3.430.2.7 Hospit a .3.004695 l .8 2021-09-26 2021-09-[address] [facility] 2100 348731 [place] 00:00:00 00:00:[address]BECCA [address] 2021-09-19 2021-09-19 Travel 1.2.840.1 1.2.511.889 3055 805481 Methodi 00:00:00 00:00:[address] 3.430.2.7 0.2.7.3.698 Ho spita .3.163418 084.8 l .8 2021-09-19 2021-09-19 Orders Marrero, 1.2.840.1 339326387 2099 805294 Methodi 00:00:00 00:00:00 Only Sharno 43676.1.[address] 3.430.2.7 Hospit a .3.176505 l .8 2021-09-19 2021-09-19 Orders Tavares, 1.2.840.1 897080457 978890 8205 Methodi 00:00:00 00:00:00 Only Peggy 21330.1.[address] 3.430.2.7 Hospit a .3.674621 l .8 2021-09-19 2021-09-19 Travel 1.2.840.1 1.2.249.277 2131 165582 Methodi 00:00:00 00:00:[address] 3.430.2.7 0.2.7.3.698 Ho spita .3.584961 084.8 l .8 2021-09-19 2021-09-19 Orders Marrero, 1.2.840.1 620457646 2099 170097 Methodi 00:00:00 00:00:00 Only Sharon 14519.1.[address] 3.430.2.7 Hospit a .3.505718 l .8 2021-09-19 2021-09-19 Orders Tavares, 1.2.840.1 509309299 246881 5029 Methodi 00:00:00 00:00:00 Only Peggy 50862.1.[address] 3.430.2.7 Hospit a .3.212955 l .8 2021-09-18 2021-09-18 Orders Propes, 1.2.840.1 539546765 929155 1542 Methodi 00:00:00 00:00:00 Only Pina 80370.1.[address] 3.430.2.7 Hospit a .3.471089 l .8 2021-09-18 2021-09-18 Orders Propes, 1.2.840.1 206610004 831084 0187 Methodi 00:00:00 00:00:00 Only Pina 45539.1.[address] 3.430.2.7 Hospit a .3.291906 l .8 2021-09-14 2021-09-14 Orders Tavares, 1.2.840.1 443091843 143105 2384 Methodi 00:00:00 00:00:00 Only Peggy 26887.1.[address] 3.430.2.7 Hospit a .3.010793 l .8 2021-09-14 2021-09-14 Orders Tavares, 1.2.840.1 280205863 017027 5697 Methodi 00:00:00 00:00:00 Only Peggy 69478.1.[address] 3.430.2.7 Hospit a .3.106450 l .8 2021-09-11 2021-09-11 Office Tavares, 1.2.840.1 201768222 790411 6394 Methodi 15:50:00 16:55:49 Visit Peggy 23774.1.[address] 3.430.2.7 Hospit a .3.618578 l .8 2021-09-11 2021-09-11 Office Tavares, 1.2.840.1 402573282 033012 8166 Methodi 15:50:00 16:55:49 Visit Peggy 41357.1.[address] 3.430.2.7 Hospit a .3.993704 l .8 2021-09-11 2021-09-11 Travel 1.2.840.1 1.2.469.641 8882 935905 Methodi 00:00:00 00:00:[address] 3.430.2.7 0.2.7.3.698 Ho spita .3.759566 084.8 l .8 2021-09-11 2021-09-11 Travel 1.2.840.1 1.2.929.128 2948 260945 Methodi 00:00:00 00:00:[address] 3.430.2.7 0.2.7.3.698 Ho spita .3.682157 084.8 l .8 2021-09-10 2021-09-10 Office Kem, 1.2.840.1 677953652 378 3893706 Methodi 10:40:00 11:03:05 Visit Rebecca Nguyen 60313.1.[address] 3.430.2.7 Hospit a .3.026130 l .8 2021-09-10 2021-09-10 Office Kem, 1.2.840.1 186889109 744 2667971 Methodi 10:40:00 11:03:05 Visit Rebecca Nguyen 73204.1.[address] 3.430.2.7 Hospit a .3.284228 l .8 2021-09-10 2021-09-10 Jaclyn Wyatt, 1.2.840.1 670207758 2099 469276 Methodi 00:00:00 00:00:00 Only Jami 66189.1.[address] 3.430.2.7 Hospit a .3.145715 l .8 2021-09-10 2021-09-10 Jaclyn Wyatt 1.2.840.1 292024840 2099 430403 Methodi 00:00:00 00:00:00 Only Jami 50077.1.[address] 3.430.2.7 Hospit a .3.042801 l .8 2021-09-10 2021-09-10 [facility] 2[facility] 661985 [place] 00:00:00 00:00:00 REBECCA Tran Method i st 2021-08-31 2021-08-31 Refill Iscorwin, 1.2.840.1 146680139 071962 7970 Methodi 00:00:00 00:00:[address] Doe 3.430.2.7 Hospi ta .3.749497 l .8 2021-08-31 2021-08-31 Refill Prasanth, 1.2.840.1 785637350 830857 3035 Methodi 00:00:00 00:00:[address] Ald[address]183.1.[address] 3.430.2.7 Hospit a .3.644247 l .8 2021-08-31 2021-08-31 Refill Istre, 1.2.840.1 265052503 888834 0363 Methodi 00:00:00 00:00:[address] Severn 3.430.2.7 Hospi ta .3.700180 l .8 2021-08-31 2021-08-31 Refill Prasanth, 1.2.840.1 166466881 231403 4685 Methodi 00:00:00 00:00:[address] 28561.1.[address] 3.430.2.7 Hospit a .3.997540 l .8 2021-08-29 2021-08-29 Telephone Denisse, 1.2.840.1 161259478 2099 996268 Methodi 00:00:00 00:00:00 Ivy Ray 47857.1.[address] 3.430.2.7 Hospit a .3.176846 l .8 2021-08-29 2021-08-29 Orders Istre, 1.2.840.1 774374191 135612 1263 Methodi 00:00:00 00:00:00 Only Shell 42759.1.[address] Doe 3.430.2.7 Hospi ta .3.704926 l .8 2021-08-29 2021-08-29 Telephone Denisse, 1.2.840.1 330754376 2099 743642 Methodi 00:00:00 00:00:00 Ward Ray 69822.1.[address] 3.430.2.7 Hospit a .3.690538 l .8 2021-08-29 2021-08-29 Orders Istre, 1.2.840.1 941773364 894676 9066 Methodi 00:00:00 00:00:00 Only Shell 78518.1.[address] Doe 3.430.2.7 Hospi ta .3.819036 l .8 2021-08-28 2021-08-28 Travel 1.2.840.1 1.2.144.478 6322 203594 Methodi 00:00:00 00:00:[address] 3.430.2.7 0.2.7.3.698 Ho spita .3.868466 084.8 l .8 2021-08-28 2021-08-28 Travel 1.2.840.1 1.2.341.482 7347 764987 Methodi 00:00:00 00:00:[address] 3.430.2.7 0.2.7.3.698 Ho spita .3.657249 084.8 l .8 2021-08-26 2021-08-26 Emergency Mazin, 1.2.840.1 032535544 2099370 Methodi 16:36:00 20:08:[address] Adrienne 3.430.2.7 Hospit a .3.418425 l .8 2021-08-26 2021-08-26 Emergency Mazin, 1.2.840.1 3207122862099370 Methodi 16:36:00 20:08:[address] Adrienne 3.430.2.7 Hospit a .3.510841 l .8 2021-08-26 2021-08-26 Orders Colmenter, 1.2.840.1 934162465 690 7799210 Methodi 00:00:00 00:00:00 Only Linda 88088.1.[address] 3.430.2.7 Hospit a .3.279667 l .8 2021-08-26 2021-08-26 Orders Colmenter, 1.2.840.1 190738824 682 5607346 Methodi 00:00:00 00:00:00 Only Linda 95871.1.[address] 3.430.2.7 Hospit a .3.245295 l .8 2021-08-21 2021-08-21 Orders Colmenter, 1.2.840.1 571305891 827 8869575 Methodi 00:00:00 00:00:00 Only Linda 99008.1.[address] 3.430.2.7 Hospit a .3.050210 l .8 2021-08-21 2021-08-21 Orders Colmenter, 1.2.840.1 525919685 181 7010393 Methodi 00:00:00 00:00:00 Only Linda 38167.1.[address] 3.430.2.7 Hospit a .3.116403 l .8 2021-08-14 2021-08-14 Office Colmenter, 1.2.840.1 854237153 631 0831062 Methodi 11:00:00 13:05:34 Visit Linda 80414.1.[address] 3.430.2.7 Hospit a .3.594569 l .8 2021-08-14 2021-08-14 Office Colmenter, 1.2.840.1 622450528 046 7205674 Methodi 11:00:00 13:05:34 Visit Linda 34497.1.[address] 3.430.2.7 Hospit a .3.527440 l .8 2021-08-12 2021-08-12 Office Prasanth, 1.2.840.1 491860645 206646 7292 Methodi 10:00:00 11:08:57 Visit Eddie Franco 59164.1.[address] 3.430.2.7 Hospit a .3.477920 l .8 2021-08-12 2021-08-12 Office Prasanth, 1.2.840.1 [id number] 005849 3549 Methodi 10:00:00 11:08:57 Visit Eddie Franco 12438.1.[address] 3.430.2.7 Hospit a .3.606955 l .8 2021-08-12 2021-08-12 Travel 1.2.840.1 1.2.781.574 5460 966558 Methodi 00:00:00 00:00:[address] 3.430.2.7 0.2.7.3.698 Ho spita .3.251059 084.8 l .8 2021-08-12 2021-08-12 Travel 1.2.840.1 1.2.812.209 7964 922583 Methodi 00:00:00 00:00:[address] 3.430.2.7 0.2.7.3.698 Ho spita .3.324571 084.8 l .8 2021-08-08 2021-08-08 Emergency EM Lynda, HCAK[facility] [id number] [facility] 12:48:00 19:41:00 Di 70 [facility] 2021-08-08 2021-08-08 Emergency EM [id number] [facility] 12:48:00 19:41:00 Di [id number] [facility] 2021-08-08 2021-08-08 Outpatient Lynda, [facility] [id number] [facility] 19:09:00 19:09:00 Di 00 [facility] 2021-08-08 2021-08-08 Transcribe Istre, 1.2.840.1 [id number] [id number] Methodi 00:00:00 00:00:00 Orders Shell 25747.1.[address] Doe 3.430.2.7 Hospi ta .3.092541 l .8 2021-08-08 2021-08-08 Transcribe Istre, 1.2.840.1 [id number] 172 [id number] Methodi 00:00:00 00:00:00 Orders Shell 02472.1.[address] Doe 3.430.2.7 Hospi ta .3.674076 l .8 2021-08-06 2021-08-06 Emergency Myles Martin 1.2.840.1 [id number] Methodi 14:54:00 18:50:[address] 3.430.2.7 Hospit a .3.849823 l .8 2021-08-06 2021-08-06 Emergency Myles Martin 1.2.840.1 [id number] Methodi 14:54:00 18:50:[address] 3.430.2.7 Hospit a .3.095594 l .8 2021-08-06 2021-08-06 Travel 1.2.840.1 1.2.586.283 5593 572438 Methodi 00:00:00 00:00:[address] 3.430.2.7 0.2.7.3.698 Ho spita .3.130749 084.8 l .8 2021-08-06 2021-08-06 Travel 1.2.840.1 1.2.753.430 2811 393423 Methodi 00:00:00 00:00:[address] 3.430.2.7 0.2.7.3.698 Ho spita .3.046731 084.8 l .8 2021-08-04 2021-08-04 Office Istre, 1.2.840.1 [id number] 647665 5238 Methodi 14:20:00 15:33:19 Visit Shell 40482.1.[address] [place] 3.430.2.7 Hospi ta .3.273539 l .8 2021-08-04 2021-08-04 Office Istre, 1.2.840.1 [id number] 033618 5402 Methodi 14:20:00 15:33:19 Visit Shell 06975.1.[address] Doe 3.430.2.7 Hospi ta .3.054478 l .8 2021-08-04 2021-08-04 Travel 1.2.840.1 1.2.245.281 9171 604284 Methodi 00:00:00 00:00:[address] 3.430.2.7 0.2.7.3.698 Ho spita .3.926192 084.8 l .8 2021-08-04 2021-08-04 Travel 1.2.840.1 1.2.794.577 0868 818000 Methodi 00:00:00 00:00:[address] 3.430.2.7 0.2.7.3.698 Ho spita .3.634158 084.8 l .8 2021-07-31 2021-07-31 Emergency [facility] 1.2.840.1 [id number] Methodi 21:39:00 23:28:[address] 3.430.2.7 Hospit a .3.589151 l .8 2021-07-31 2021-07-31 Emergency [facility] 1.2.840.1 [id number] Methodi 21:39:00 23:28:[address] 3.430.2.7 Hospit a .3.234727 l .8 2021-07-31 2021-07-31 Travel 1.2.840.1 1.2.040.374 9841 351055 Methodi 00:00:00 00:00:[address] 3.430.2.7 0.2.7.3.698 Ho spita .3.048589 084.8 l .8 2021-07-31 2021-07-31 Travel 1.2.840.1 1.2.244.275 6316 354545 Methodi 00:00:00 00:00:[address] 3.430.2.7 0.2.7.3.698 Ho spita .3.014381 084.8 l .8 2021-07-30 2021-07-30 Emergency Myles Martin 1.2.840.1 [id number] Methodi 13:34:00 17:16:[address] 3.430.2.7 Hospit a .3.647873 l .8 2021-07-30 2021-07-30 Emergency Myles Martin 1.2.840.1 [id number] Methodi 13:34:00 17:16:[address] 3.430.2.7 Hospit a .3.128056 l .8 2021-07-30 2021-07-30 [facility] 1.2.840.1 [id number] 2099 839338 Methodi 00:00:00 00:00:[address] [place] 3.430.2.7 Hospi ta .3.702106 l .8 2021-07-30 2021-07-30 Telephone Istre, 1.2.840.1 [id number] 2099 143973 Methodi 00:00:00 00:00:[address] Doe 3.430.2.7 Hospi ta .3.893251 l .8 2021-07-28 2021-07-28 [facility] [id number] 879 [place] 00:00:00 00:00:00 PEGGY Smith Method i st 2021-07-24 2021-07-24 Orders Lopez, 1.2.840.1 [id number] 19083 30059 Methodi 00:00:00 00:00:00 Only Maureen 43128.1.[address] 3.430.2.7 Hospit a .3.125841 l .8 2021-07-24 2021-07-24 Orders Lopez, 1.2.840.1 349741133 62918 70801 Methodi 00:00:00 00:00:00 Only Maureen 44033.1.[address] 3.430.2.7 Hospit a .3.140421 l .8 2021-07-23 2021-07-23 Orders Istre, 1.2.840.1 [id number] 433399 5232 Methodi 00:00:00 00:00:00 Only Shell 62890.1.[address] Doe 3.430.2.7 Hospi ta .3.462380 l .8 2021-07-23 2021-07-23 Orders Istre, 1.2.840.1 963857731 582526 0016 Methodi 00:00:00 00:00:00 Only Shell 31542.1.[address] Doe 3.430.2.7 Hospi ta .3.429057 l .8 2021-07-21 2021-07-21 Orders Istre, 1.2.840.1 695131600 541109 2214 Methodi 00:00:00 00:00:00 Only Shell 30247.1.[address] Doe 3.430.2.7 Hospi ta .3.860818 l .8 2021-07-21 2021-07-21 Orders Istre, 1.2.840.1 [id number] 147592 9361 Methodi 00:00:00 00:00:00 Only Shell 19464.1.[address] [place] 3.430.2.7 Hospi ta .3.236412 l .8 2021-07-15 2021-07-15 Telephone Leggett, 1.2.840.1 [id number] 21 [id number] Methodi 00:00:00 00:00:[address] 3.430.2.7 Hospit a .3.054077 l .8 2021-07-15 2021-07-15 Travel 1.2.840.1 1.2.421.622 6521 580500 Methodi 00:00:00 00:00:[address] 3.430.2.7 0.2.7.3.698 Ho spita .3.473196 084.8 l .8 2021-07-15 2021-07-15 Telephone Leggett, 1.2.840.1 [id number] 21 [id number] Methodi 00:00:00 00:00:[address] 3.430.2.7 Hospit a .3.609401 l .8 2021-07-15 2021-07-15 Travel 1.2.840.1 1.2.615.018 8410 801161 Methodi 00:00:00 00:00:[address] 3.430.2.7 0.2.7.3.698 Ho spita .3.561359 084.8 l .8 2021-07-10 2021-07-10 Treatment Shell Vargas 1.2.840.1 [id number] Methodi 09:00:00 10:00:00 Peggy Esparza 13657.1.[address] [place], Smooth 3.430.2.7 H ospita .3.422396 l .8 2021-07-10 2021-07-10 Treatment Shell Vargas 1.2.840.1 588421585 [id number] Methodi 09:00:00 10:00:00 Peggy Esparza 36147.1.[address] [place], Smooth 3.430.2.7 H ospita .3.292876 l .8 2021-07-10 2021-07-10 Plan of 1.2.840.1 742415706 303364 5817 Methodi 00:00:00 00:00:[address] Documentat 3.430.2.7 Hos margie ion .3.164025 l .8 2021-07-10 2021-07-10 Plan of 1.2.840.1 49975363220990413 Methodi 00:00:00 00:00:[address] Documentat 3.430.2.7 Hos margie ion .3.187619 l .8 2021-07-09 2021-07-09 Travel 1.2.840.1 1.2.992.268 3274 122100 Methodi 00:00:00 00:00:[address] 3.430.2.7 0.2.7.3.698 Ho spita .3.781649 084.8 l .8 2021-07-09 2021-07-09 Orders Istre, 1.2.840.1 [id number] 957787 7690 Methodi 00:00:00 00:00:00 Only Shell 02352.1.[address] Doe 3.430.2.7 Hospi ta .3.837346 l .8 2021-07-09 2021-07-09 Travel 1.2.840.1 1.2.608.159 8847 122100 Methodi 00:00:00 00:00:[address] 3.430.2.7 0.2.7.3.698 Ho spita .3.752504 084.8 l .8 2021-07-09 2021-07-09 Orders Istre, 1.2.840.1 [id number] 864469 5260 Methodi 00:00:00 00:00:00 Only Shell 37985.1.[address] Doe 3.430.2.7 Hospi ta .3.749459 l .8 2021-07-03 2021-07-03 Travel 1.2.840.1 1.2.073.046 4886 121748 Methodi 00:00:00 00:00:[address] 3.430.2.7 0.2.7.3.698 Ho spita .3.385430 084.8 l .8 2021-07-03 2021-07-03 Travel 1.2.840.1 1.2.087.515 9337 121748 Methodi 00:00:00 00:00:[address] 3.430.2.7 0.2.7.3.698 Ho spita .3.061738 084.8 l .8 2021-06-30 2021-06-30 Emergency Tyshawn, Nelson 1.2.840.1 [id number] Methodi 14:43:00 20:06:[address] 3.430.2.7 Hospit a .3.968731 l .8 2021-06-30 2021-06-30 Emergency [facility] 1.2.840.1 [id number] Methodi 14:43:00 20:06:[address] 3.430.2.7 Hospit a .3.450430 l .8 2021-06-19 2021-06-19 Orders [place], 1.2.840.1 406492047 824356 5212 Methodi 00:00:00 00:00:00 Only Susanne 12427.1.[address] 3.430.2.7 Hospit a .3.075897 l .8 2021-06-19 2021-06-19 Orders [place], 1.2.840.1 500134831 781835 7113 Methodi 00:00:00 00:00:00 Only Susanne 60317.1.[address] 3.430.2.7 Hospit a .3.313952 l .8 2021-06-18 2021-06-18 Orders Tran, 1.2.840.1 640979145 206962 4391 Methodi 00:00:00 00:00:00 Only Kortney 56881.1.[address] 3.430.2.7 Hospit a .3.329673 l .8 2021-06-18 2021-06-18 Telephone Lopez, 1.2.840.1 [id number] 116 [id number] Methodi 00:00:00 00:00:[address] 3.430.2.7 Hospit a .3.296019 l .8 2021-06-18 2021-06-18 Orders Tran, 1.2.840.1 587674897 034306 0750 Methodi 00:00:00 00:00:00 Only Kortney 75656.1.[address] 3.430.2.7 Hospit a .3.325259 l .8 2021-06-18 2021-06-18 Telephone Jessica, 1.2.840.1 [id number] 335 [id number] Methodi 00:00:00 00:00:[address] 3.430.2.7 Hospit a .3.078567 l .8 2021-06-16 2021-06-16 Office Prasanth, 1.2.840.1 027275584 351191 7749 Methodi 11:40:00 13:03:55 Visit Eddie Franco 45908.1.[address] 3.430.2.7 Hospit a .3.257882 l .8 2021-06-16 2021-06-16 Office Prasanth, 1.2.840.1 531259712 904744 1973 Methodi 11:40:00 13:03:55 Visit Eddie Franco 98021.1.[address] 3.430.2.7 Hospit a .3.949491 l .8 2021-06-16 2021-06-16 Travel 1.2.840.1 1.2.878.515 2561 122690 Methodi 00:00:00 00:00:[address] 3.430.2.7 0.2.7.3.698 Ho spita .3.422213 084.8 l .8 2021-06-16 2021-06-16 Travel 1.2.840.1 1.2.309.330 9848 489844 Methodi 00:00:00 00:00:[address] 3.430.2.7 0.2.7.3.698 Ho spita .3.697383 084.8 l .8 2021-06-03 2021-06-03 Refill [place], 1.2.840.1 926304593 698500 5003 Methodi 00:00:00 00:00:[address] 3.430.2.7 Hospit a .3.855251 l .8 2021-06-03 2021-06-03 Telephone Brady, 1.2.840.1 [id number] 2099 405028 Methodi 00:00:00 00:00:[address] 3.430.2.7 Hospit a .3.159387 l .8 2021-06-03 2021-06-03 Refill [place], 1.2.840.1 595305566 318432 7901 Methodi 00:00:00 00:00:[address] 3.430.2.7 Hospit a .3.293983 l .8 2021-06-03 2021-06-03 Telephone Brady, 1.2.840.1 [id number] 2099 347267 Methodi 00:00:00 00:00:[address] 3.430.2.7 Hospit a .3.918672 l .8 2021-06-02 2021-06-02 Emergency Gunnar, 1.2.840.1 152789030 2 [id number] Methodi 10:56:00 13:23:00 Mario Crook 83253.1.1 606 s t 3.430.2.7 Hospit a .3.082506 l .8 2021-06-02 2021-06-02 Emergency [place], 1.2.840.1 515239205 2 [id number] Methodi 10:56:00 13:23:00 Mario Crook 84030.1.1 606 s t 3.430.2.7 Hospit a .3.108312 l .8 2021-06-02 2021-06-02 Orders Istre, 1.2.840.1 920924145 515499 7921 Methodi 00:00:00 00:00:00 Only Shell 08312.1.[address] [place] 3.430.2.7 Hospi ta .3.362709 l .8 2021-06-02 2021-06-02 Orders Istre, 1.2.840.1 696861723 904685 1870 Methodi 00:00:00 00:00:00 Only Shell 61656.1.[address] [place] 3.430.2.7 Hospi ta .3.363462 l .8 2021-05-30 2021-05-30 Treatment Shell Vargasd 1.2.840.1 260810420 1274154715 Methodi 10:00:00 11:00:00 Smooth [place] [address]100.1.[address] 3.430.2.7 Hospit a .3.905113 l .8 2021-05-30 2021-05-30 Treatment Shell Vargasd 1.2.840.1 884314243 9549130845 Methodi 10:00:00 11:00:00 Smooth [place] [address]68.[address] 3.430.2.7 Hospit a .3.015650 l .8 2021-05-28 2021-05-28 Orders Istre, 1.2.840.1 276764616 942537 8722 Methodi 00:00:00 00:00:00 Only Shell 63150.1.[address] Severn 3.430.2.7 Hospi ta .3.340830 l .8 2021-05-28 2021-05-28 Orders Istre, 1.2.840.1 013174377 842061 3415 Methodi 00:00:00 00:00:00 Only Shell 55734.1.[address] Doe 3.430.2.7 Hospi ta .3.124642 l .8 2021-05-27 2021-05-27 Travel 1.2.840.1 1.2.803.084 2710 389914 Methodi 00:00:00 00:00:[address] 3.430.2.7 0.2.7.3.698 Ho spita .3.896642 084.8 l .8 2021-05-27 2021-05-27 Travel 1.2.840.1 1.2.891.173 5842 673125 Methodi 00:00:00 00:00:[address] 3.430.2.7 0.2.7.3.698 Ho spita .3.516181 084.8 l .8 2021-05-19 2021-05-19 Evaluation Shell Vargas 1.2.840.1 861416537 3581088113 Methodi 11:00:00 12:00:00 Peggy Esparza 12367.1.[address] [place], Smooth 3.430.2.7 H ospita .3.800457 l .8 2021-05-19 2021-05-19 Evaluation Shell Vargas 1.2.840.1 000656334 6160469390 Methodi 11:00:00 12:00:00 Peggy Esparza 89069.1.[address] [place], Smooth 3.430.2.7 H ospita .3.520038 l .8 2021-05-19 2021-05-19 Plan of 1.2.840.1 716625465 370297 5683 Methodi 00:00:00 00:00:[address] Documentat 3.430.2.7 Hos margie ion .3.325479 l .8 2021-05-19 2021-05-19 Travel 1.2.840.1 1.2.617.782 5972 294654 Methodi 00:00:00 00:00:[address] 3.430.2.7 0.2.7.3.698 Ho spita .3.023627 084.8 l .8 2021-05-19 2021-05-19 Plan of 1.2.840.1 337868177 425058 7063 Methodi 00:00:00 00:00:[address] Documentat 3.430.2.7 Hos margie ion .3.905424 l .8 2021-05-19 2021-05-19 Travel 1.2.840.1 1.2.310.718 8923 419012 Methodi 00:00:00 00:00:[address] 3.430.2.7 0.2.7.3.698 Ho spita .3.969503 084.8 l .8 2021-05-09 2021-05-09 Travel 1.2.840.1 1.2.137.295 9431 789362 Methodi 00:00:00 00:00:[address] 3.430.2.7 0.2.7.3.698 Ho spita .3.948994 084.8 l .8 2021-05-09 2021-05-09 Travel 1.2.840.1 1.2.676.379 1027 600725 Methodi 00:00:00 00:00:[address] 3.430.2.7 0.2.7.3.698 Ho spita .3.837627 084.8 l .8 2021-05-09 2021-05-09 Outpatient [facility] [id number] 977 [place] 00:00:00 00:00:[address] PEGGY [address] 2021-05-06 2021-05-06 Orders Istre, 1.2.840.1 379320634 268594 0253 Methodi 00:00:00 00:00:00 Only Shell 21983.1.[address] Doe 3.430.2.7 Hospi ta .3.731979 l .8 2021-05-06 2021-05-06 Orders Istre, 1.2.840.1 345180103 326438 4881 Methodi 00:00:00 00:00:00 Only Shell 57304.1.[address] [place] 3.430.2.7 Hospi ta .3.860219 l .8 2021-05-05 2021-05-05 [facility] [id number] 738 [place] 00:00:00 00:00:[address] PEGGY [address] 2021-05-04 2021-05-04 Emergency Oghogho, 1.2.840.1 [id number] 115 9861761 Methodi 14:39:00 18:56:[address] 3.430.2.7 Hospit a .3.471235 l .8 2021-05-04 2021-05-04 Emergency Oghogho, 1.2.840.1 878673309 578 3072506 Methodi 14:39:00 18:56:[address] 3.430.2.7 Hospit a .3.913549 l .8 2021-05-04 2021-05-04 Travel 1.2.840.1 1.2.749.456 9415 983681 Methodi 00:00:00 00:00:[address] 3.430.2.7 0.2.7.3.698 Ho spita .3.334207 084.8 l .8 2021-05-04 2021-05-04 Travel 1.2.840.1 1.2.212.822 6831 923710 Methodi 00:00:00 00:00:[address] 3.430.2.7 0.2.7.3.698 Ho spita .3.041587 084.8 l .8 2021-05-02 2021-05-02 [facility] 15980 9559 [place] 00:00:00 00:00:00 [facility] 2021-04-30 2021-04-30 Travel 1.2.840.1 1.2.250.696 1394 186607 Methodi 00:00:00 00:00:[address] 3.430.2.7 0.2.7.3.698 Ho spita .3.469826 084.8 l .8 2021-04-30 2021-04-30 Travel 1.2.840.1 1.2.111.817 5301 504621 Methodi 00:00:00 00:00:[address] 3.430.2.7 0.2.7.3.698 Ho spita .3.504916 084.8 l .8 2021-04-28 2021-04-28 Orders Istre, 1.2.840.1 552476001 180362 4991 Methodi 00:00:00 00:00:00 Only Shell 35754.1.[address] [place] 3.430.2.7 Hospi ta .3.250673 l .8 2021-04-28 2021-04-28 Orders Istre, 1.2.840.1 639960689 028241 0735 Methodi 00:00:00 00:00:00 Only Shell 88177.1.[address] [place] 3.430.2.7 Hospi ta .3.186717 l .8 2021-04-17 2021-04-17 Office Istre, 1.2.840.1 500448510 349716 2710 Methodi 15:00:00 15:00:06 Visit Shell 11405.1.[address] [place] 3.430.2.7 Hospi ta .3.295419 l .8 2021-04-17 2021-04-17 Office Istre, 1.2.840.1 672094925 615810 2191 Methodi 15:00:00 15:00:06 Visit Shell 91812.1.[address] [place] 3.430.2.7 Hospi ta .3.262284 l .8 2021-04-16 2021-04-16 Travel 1.2.840.1 1.2.872.441 4563 941726 Methodi 00:00:00 00:00:[address] 3.430.2.7 0.2.7.3.698 Ho spita .3.651713 084.8 l .8 2021-04-16 2021-04-16 Travel 1.2.840.1 1.2.873.002 7084 838922 Methodi 00:00:00 00:00:[address] 3.430.2.7 0.2.7.3.698 Ho spita .3.686451 084.8 l .8 2021-04-12 2021-04-12 Emergency Svach, 1.2.840.1 581605570 2099 100704 Methodi 15:47:00 22:48:00 [place] [address] 3.430.2.7 Hospit a .3.935333 l .8 2021-04-12 2021-04-12 Emergency Svach, 1.2.840.1 684409629 2099 517675 Methodi 15:47:00 22:48:00 Candelaria R [address]50.1.[address] 3.430.2.7 Hospit a .3.060895 l .8 2021-04-08 2021-04-08 Travel 1.2.840.1 1.2.205.753 3718 120812 Methodi 00:00:00 00:00:[address] 3.430.2.7 0.2.7.3.698 Ho spita .3.065278 084.8 l .8 2021-04-08 2021-04-08 Travel 1.2.840.1 1.2.664.361 7173 568415 Methodi 00:00:00 00:00:[address] 3.430.2.7 0.2.7.3.698 Ho spita .3.470246 084.8 l .8 2021-03-28 2021-03-28 Office Rj Khoury [facility] [address] [id number] 1 [id number] [place] 08:30:00 09:30:00 Visit Jackie [facility] 2021-03-28 2021-03-28 Office Rj Khoury [facility] [address] [id number] 1 [id number] [place] 08:30:00 09:30:00 Visit Jackie [facility] 2021-03-28 2021-03-28 Outpatient JACKIE [facility] [id number] 6844 [place] 00:00:00 00:00:00 [facility] 2021-03-14 2021-03-14 Outpatient RADHA, [facility] [id number] 1468 [place] 00:00:00 00:00:00 [facility] 2021-03-03 2021-03-03 Telephone Alicia, 1.2.840.1 [id number] 2099 [id number] Methodi 11:20:00 11:48:51 Consult Shell 05154.1.[address] Doe 3.430.2.7 Hospi ta .3.965575 l .8 2021-02-27 2021-02-27 Travel 1.2.840.1 1.2.874.327 1852 291095 Methodi 00:00:00 00:00:[address] 3.430.2.7 0.2.7.3.698 Ho spita .3.035238 084.8 l .8 2021-02-19 2021-02-19 Outpatient VEJPONGSA, [facility] 2100 [id number] [place] 00:00:00 00:00:00 PIMPRAPA 626 Metho di 2021-02-17 2021-02-17 Outpatient [facility] [id number] 297 [place] 00:00:00 00:00:00 482 Method i 2021-02-17 2021-02-17 Outpatient SMALL, [facility] [id number] 406 [place] 00:00:00 00:00:00 PROCTOR 706 Method i 2021-02-10 2021-02-10 Outpatient TAVARES, [facility] [id number] 790 [place] 00:00:00 00:00:00 PEGGY 856 Method i 2021-02-07 2021-02-07 Outpatient ISCORWIN, [facility] [id number] 637 [place] 00:00:00 00:00:00 SHELL 793 Method i 2021-01-30 2021-01-31 Outpatient IMELDA, [facility] [id number] 174 [place] 00:00:00 00:00:00 KRISTY 451 Method i 2021-01-25 2021-01-25 Emergency KENA KILLIAN [facility] 064 [id number] 70557 [place] 00:00:00 00:00:00 190 Method i 2021-01-24 2021-01-24 Outpatient CHARLA, [facility] 2100 [id number] [place] 00:00:00 00:00:00 PIMPRAPA 711 Metho di 2021-01-09 2021-01-09 Outpatient [facility] [id number] 646 [place] 00:00:00 00:00:00 247 Method i 2020-12-29 2020-12-29 Emergency VASQUEZ, [facility] 064 [id number] 98 [place] 00:00:00 00:00:00 CRISTÓBAL 225 Method i 2020-12-23 2020-12-23 Outpatient PRASANTH, [facility] [id number] 498 [place] 00:00:00 00:00:00 EDDIE 305 Method i 2020-12-11 2020-12-11 Emergency VASQUEZ, [facility] 064 [id number] 96 [place] 00:00:00 00:00:00 CRISTÓBAL 030 Method i 2020-12-08 2020-12-08 Emergency TRISTAN, [facility] 064 [id number] 26 [place] 00:00:00 00:00:00 TRUNG 699 Method i 2020-11-25 2020-11-26 Office Doug Estevez [facility] Encounter/ Legacy 00:00:00 00:00:00 Visit Symone Moreau 0391 Communi [id number] [facility] 2020-11-25 2020-11-26 Office Doug Estevez [facility] Encounter/ Legacy 00:00:00 00:00:00 Visit Symone Moreau 3531 Communi [id number] [facility] 2020-11-18 2020-11-18 Outpatient SMALL, [facility] [id number] 074 [place] 00:00:00 00:00:00 PROCTOR 729 Method i 2020-11-02 2020-11-02 Emergency HALEY, [facility] [id number] 062 [place] 00:00:00 00:00:00 ROGER 241 Method i 2020-10-29 2020-10-29 Outpatient SMALL, [facility] [id number] 857 [place] 00:00:00 00:00:00 PROCTOR 983 Method i 2020-10-25 2020-10-25 Outpatient VEJPONGSA, [facility] 2100 [id number] [place] 00:00:00 00:00:00 PIMPRAPA [address] 2020-10-24 2020-10-24 Outpatient VEJPONGSA, [facility] 2100 [id number] [place] 00:00:00 00:00:00 PIMPRAPA [address] 2020-10-18 2020-10-19 Emergency HOPE, [facility] 064 [id number] 58 [place] 00:00:00 00:00:00 TRUNG [address] 2020-10-18 2020-10-18 Outpatient SMALL, [facility] [id number] 110 [place] 00:00:00 00:00:00 PROCTOR [address] 2020-10-11 2020-10-11 Emergency COURTNEY, [facility] 064 [id number] 52 [place] 00:00:00 00:00:00 TRUNG 080 Method i 2020-10-09 2020-10-09 Outpatient PRASANTH, [facility] [id number] 499 [place] 00:00:00 00:00:00 EDDIE [address] 2020-10-01 2020-10-01 Outpatient AHMED, [facility] [id number] 980 [place] 00:00:00 00:00:00 MOHAMMAD 768 Metho di 2020-09-26 2020-09-26 Outpatient SMALL, [facility] [id number] 765 [place] 00:00:00 00:00:00 PROCTOR [address] 2020-09-13 2020-09-13 Outpatient PRASANTH, [facility] [id number] 045 [place] 00:00:00 00:00:00 EDDIE [address] 2020-09-11 2020-09-11 Outpatient VECHONGA, [facility] 2100 [id number] [place] 00:00:00 00:00:00 PIMPRAPA [address] 2020-08-23 2020-08-23 Outpatient AHMED, [facility] [id number] 605 [place] 00:00:00 00:00:00 MOHAMMAD [address] 2020-08-19 2020-08-21 Outpatient MELTON, [facility] 075 [id number] 265 [place] 00:00:00 00:00:00 TRUNG 187 Method i 2020-07-31 2020-08-01 Outpatient ARREDONDO, [facility] [id number] 975 [place] 00:00:00 00:00:00 RG [address] 2020-07-16 2020-07-16 Emergency HOPE, [facility] 064 [id number] 18 [place] 00:00:00 00:00:00 TRUNG 600 Method i 2020-07-05 2020-07-05 Outpatient BROCK, [facility] [id number] [place] 00:00:00 00:00:00 [facility] 2020-07-05 2020-07-05 Emergency VASQUEZ, [facility] 064 [id number] 62 [place] 00:00:00 00:00:00 CRISTÓBAL 088 Method i 2020-06-28 2020-06-28 Outpatient SMALL, [facility] [id number] 302 [place] 00:00:00 00:00:00 PROCTOR 174 Method i 2020-06-27 2020-06-27 Outpatient PRASANTH, [facility] [id number] 221 [place] 00:00:00 00:00:00 DEDIE 576 Method i 2020-06-24 2020-06-24 Outpatient ISTRE, [facility] [id number] 844 [place] 00:00:00 00:00:00 SHELL 509 Method i 2020-06-19 2020-06-20 Emergency LATTER-DAY, [facility] 064 [id number] 53 [place] 00:00:00 00:00:00 NADIM 685 Method i 2020-06-11 2020-06-11 Outpatient SMALL, [facility] [id number] 229 [place] 00:00:00 00:00:00 PROCTOR [address] 2020-06-11 2020-06-11 Outpatient SMALL, [facility] [id number] 908 [place] 00:00:00 00:00:00 PROCTOR [address] 2020-06-06 2020-06-06 Outpatient ISTRE, [facility] [id number] 806 [place] 00:00:00 00:00:00 SHELL [address] 2020-06-03 2020-06-03 Outpatient ISTRE, [facility] [id number] 559 [place] 00:00:00 00:00:00 SHELL 193 Method i 2020-06-03 2020-06-03 Outpatient ISTRE, [facility] [id number] 559 [place] 00:00:00 00:00:00 SHELL 363 Method i 2020-05-26 2020-05-27 Outpatient STACI, [place] [address] [id number] 252 [place] 00:00:00 00:00:00 HAYLEE 766 Method i 2020-05-24 2020-05-24 Emergency JOSSY, [place] [address] [id number] 24 [place] 00:00:00 00:00:00 BELKIS 964 Method i 2020-05-23 2020-05-23 Emergency FORMAN, [place] [address] [id number] 56 [place] 00:00:00 00:00:00 TANIA 926 Method i 2020 2020 Outpatient ISTRE, [facility] [id number] 895 [place] 00:00:00 00:00:00 SHELL 882 Method i 2020 2020 Emergency KI, [place] [address] [id number] 65 [place] 00:00:00 00:00:00 KALIF 304 Method i 2020-05-20 2020-05-20 Outpatient ISCORWIN, [facility] [id number] 407 [place] 00:00:00 00:00:00 SHELL 217 Method i 2020-05-13 2020-05-13 Outpatient STAUNTON, [facility] [id number] 41 [place] 00:00:00 00:00:00 TRAJULIO CESAR [place] 2020-05-11 2020-05-11 Emergency HOPE, [facility] 064 [id number] 87 [place] 00:00:00 00:00:00 TRUNG 164 Method i 2020-05-07 2020-05-07 Outpatient ROGER RICARDO [facility] [id number] [place] 07:48:18 07:48:18 Health 2020-04-15 2020-04-15 Emergency KENA KILLIAN [facility] [id number] 72821 [place] 00:00:00 00:00:00 597 Method i 2020-04-01 2020-04-01 Emergency KI, [place] [address] [id number] 10 [place] 00:00:00 00:00:00 KALIF 631 Method i 2020-03-23 2020-03-24 Inpatient SEPTIMUS, [facility] 089 [id number] 5795 [place] 00:00:00 00:00:00 STEPHY 252 Method i 2020-03-23 2020-03-23 Emergency HOPE, [facility] 064 [id number] 79 [place] 00:00:00 00:00:00 TRUNG 603 Method i 2020-03-20 2020-03-20 Emergency ALTAGRACIA VILLASENOR [facility] 064 [id number] [place] 00:00:00 00:00:00 875 Method i 2020-02-29 2020-03-01 Emergency DE CRANDALL, [place] [address] [id number] 3948 [place] 00:00:00 00:00:00 CHRISTOPHER 731 Me thodi 2020-02-05 2020-02-06 Emergency NORJAREDKY, [place] [address] [id number] 9142 [place] 00:00:00 00:00:00 KEM 185 Meth john 2020-02-03 2020-02-03 Emergency DE CRANDALL, [place] [address] [id number] [place] 00:00:00 00:00:00 BERNARDER 451 Me thodi 2019-12-20 2019-12-21 Emergency NORJAREDKY, [facility] [id number] [place] 00:00:00 00:00:00 KEM 640 Meth john 2019-12-14 2019-12-14 Emergency KI, [facility] [id number] [place] 00:00:00 00:00:00 KALIF 126 Method i 2019-12-11 2019-12-11 Emergency HOPE, [facility] [id number] [place] 00:00:00 00:00:00 TRUNG 349 Method i 2019-12-08 2019-12-08 Emergency WING[place], [facility] [id number] [place] 00:00:00 00:00:00 ISAC 449 Me thodi 2019-11-24 2019-11-24 Outpatient ROGER RICARDO [facility] [id number] [place] 00:00:00 00:00:00 [facility] 2019-11-21 2019-11-21 Emergency TYSHAWN, [facility] [id number] [place] 00:00:00 00:00:00 015 Method i 2019-11-14 2019-11-14 Outpatient ROGER RICARDO [facility] [id number] [place] 06:55:06 06:55:06 Health 2019-11-13 2019-11-13 Outpatient [facility] [id number] [place] 00:00:00 00:00:00 2019-11-10 2019-11-11 Emergency [facility] [id number] [place] 00:00:00 00:00:00 TRUNG Alvarez i 2019-11-07 2019-11-07 Outpatient [facility] [id number] [place] 14:24:03 14:24:03 2019-11-07 2019-11-07 Outpatient [facility] [id number] [place] 12:22:44 12:22:44 Health 2019-11-07 2019-11-07 Outpatient [facility] [id number] [place] 00:00:00 00:00:00 2019-11-07 2019-11-07 Outpatient [facility] [id number] [place] 00:00:00 00:00:00 Health 2019-10-30 2019-10-30 Outpatient [facility] [id number] [place] 11:49:58 11:49:58 Health 2019-10-30 2019-10-30 Outpatient [facility] [id number] [place] 00:00:00 00:00:00 Health 2019-10-12 2019-10-12 Outpatient [facility] [id number] [place] 00:00:00 00:00:00 Health 2019-10-10 2019-10-10 Outpatient [facility] [id number] [place] 08:15:33 08:15:33 Health 2019-10-09 2019-10-09 Outpatient [facility] [id number] [place] 00:00:00 00:00:00 Health 2019-09-25 2019-09-25 Outpatient [facility] [id number] [place] 00:00:00 00:00:00 Health 2019-09-19 2019-09-19 Outpatient [facility] [id number] [place] 15:17:15 15:17:15 Health 2019-09-12 2019-09-12 Outpatient [facility] [id number] [place] 09:33:27 09:33:27 Health 2019-09-12 2019-09-12 Outpatient [facility] [id number] [place] 08:35:47 08:35:47 Health 2019-09-12 2019-09-12 Outpatient [facility] [id number] [place] 00:00:00 00:00:00 2019-09-09 2019-09-09 Emergency [facility] [id number] [place] 00:00:00 00:00:00 TRUNG [address] 2019-08-25 2019-08-25 Outpatient [facility] [id number] [place] 06:54:32 06:54:32 Health 2019-08-24 2019-08-24 Outpatient [facility] [id number] [place] 00:00:00 00:00:00 2019-08-23 2019-08-23 Outpatient [facility] [id number] [place] 00:00:00 00:00:00 Health 2019-08-05 2019-08-05 Emergency [facility] [id number] [place] 00:00:00 00:00:00 OTILIO, [address] 2019-08-03 2019-08-03 Emergency [place] [id number] [place] 00:00:00 00:00:[address] 2019-07-24 2019-07-24 Outpatient [facility] [id number] [place] 08:35:14 08:35:14 Health 2019-06-21 2019-06-21 Outpatient [facility] [id number] [place] 00:00:00 00:00:00 Health 2019-06-15 2019-06-16 Emergency [facility], [facility] [id number] [place] 00:00:00 00:00:00 TRUNG [address] 2019-06-15 2019-06-15 Emergency [facility] [address] MED [id number] [place] 14:03:00 14:03:00 Health 2019-06-14 2019-06-14 Outpatient [facility] [id number] [place] 00:00:00 00:00:00 Health 2019-06-08 2019-06-08 Outpatient [facility] [id number] [place] 13:49:26 13:49:26 Health 2019-06-08 2019-06-08 Outpatient [facility] [id number] [place] 13:11:00 13:11:00 Health 2019-06-08 2019-06-08 Outpatient [facility] [id number] [place] 00:00:00 00:00:00 Health 2019-06-07 2019-06-07 Emergency [facility] [id number] [place] 12:06:12 12:06:12 Health 2019-06-07 2019-06-07 Emergency [facility] [address] MED [id number] [place] 10:57:48 10:57:48 Health 2019-03-15 2019-03-15 Outpatient [facility] [id number] [place] 14:00:36 14:00:36 [facility] 2019-03-15 2019-03-15 Outpatient [facility] [id number] [place] 12:20:09 12:20:09 [facility] 2019-03-15 2019-03-15 Outpatient [facility] [id number] [place] 00:00:00 00:00:00 [facility] 2019-01-25 2019-01-25 Outpatient [facility] [id number] [place] 10:20:47 10:20:47 [facility] 2019-01-13 2019-01-13 Outpatient [facility] [id number] [place] 10:25:55 10:25:55 Health 2019-01-03 2019-01-03 Outpatient [facility] [id number] [place] 10:33:43 10:33:43 [facility] 2019-01-03 2019-01-03 Outpatient [facility] [id number] [place] 08:40:50 08:40:50 [facility] 2019-01-03 2019-01-03 Outpatient [facility] [id number] [place] 07:58:31 07:58:31 [facility] 2019-01-03 2019-01-03 Outpatient [facility] [id number] [place] [address] 00:00:00 00:00:00 [facility] 2018-12-29 2018-12-29 Outpatient [facility] [id number] [place] 00:00:00 00:00:00 [facility] 2018-12-27 2018-12-27 Outpatient [facility] [id number] [place] 00:00:00 00:00:00 [facility] 2018-12-26 2018-12-26 Outpatient [facility] [id number] [place] 16:37:58 16:37:58 [facility] 2018-12-09 2018-12-09 Outpatient [facility] [id number] [place] 16:51:56 16:51:56 [facility] 2018-12-09 2018-12-09 Outpatient [facility] [id number] [place] [address] 14:15:31 14:15:31 Health 2018-12-09 2018-12-09 Outpatient [facility] [id number] [place] [address] 00:00:00 00:00:00 [facility] 2018-11-26 2018-11-26 Emergency [facility] MED [id number] [place] 16:08:40 16:08:40 [facility] 2018-01-17 2018-01-17 Outpatient MYRNA DENSON [facility] [id number] [facility] 10:49:00 12:30:00 [facility] Center 2017-12-28 2017-12-28 Outpatient E MILES [facility] [id number] [facility] 10:12:00 12:25:00 PAUL [facility] 2017-12-20 2017-12-20 Outpatient E MYRNA CEDENO [facility] [id number] [facility] 23:13:00 23:50:00 [facility] 2017-10-15 2017-10-15 Outpatient E SHEIKH [facility] [id number] [facility] 09:57:00 11:15:00 [facility] Results Test Description Test Time Test Comments Results Result Comments Source Urine culture 2022-02-19 23:39:00 Test Item Value Reference Range Interpretation Comme nts Urine culture (test code = 9293045) SEE COMMENT Bacteriuria screen negative. [facility] [id number] 23:39:00 Test Item Value Reference Range Interpretation Comments Urine culture (test SEE COMMENT Bacteriu brandon screen code = 0596109) negative. [facility] [id number] 23:39:00 Test Item Value Reference Range Interpretation Comments Urine culture (test SEE COMMENT Bacteriu brandon screen code = 0444864) negative. [facility] B surface [id number] 22:17:00 Test Item Value Reference Range Interpretation Comments Hepatitis B surface NON-REACTIVE NON-REACTIVE Ag (test code = 5196-1) RAC (test code = RAC) Performing Organization Information: Site ID: A Name: [facility] Lab Address: [address] [place] [address] Director: Rajinder Grant [facility] with reflex to [id number] 22:17:00 Test Item Value Reference Range Interpretation Comments RPR (test code = NON-REACTIVE NON-REACTIVE 53296-9) RAC (test code = Performing Organization RAC) Information: Site ID: A Name: [facility] Address: [address] [place] [address] Director: Rajinder Grant [facility] C virus (HCV), quantitative [id number] 22:17:00 Test Item Value Reference Interpretation Comments Range HCV RNA, <15 NOT DETECTED NOT DETECTED quantitative PCR IU/mL (test code = 35482-7) HCV viral log <1.18 NOT DETECTED NOT DETECTED This bhupendra t was (test code = Log IU/mL performed using 77362-0) Real-Time Polym erase ChainReaction. Reportable Rang e: 15 IU/mL to 100,00 0,000 IU/mL(1.18 Log IU/mL to 8.00 Log IU/ mL). The analytical performance characteristics of thisassay have been determined by [employer]. Th e modifications h ave not been cleare d or approved bythe FDA. This assay has been validated pursu ant to the CLIA regulations and is used for clinic al purposes. For m ore information on this test, go to:http://IguanaFixa African G[employer] Companyon. [employer] /faq/IYY66n7( is link is being provided for informational/e ducat ional purposes only.) RAC (test code = Performing RAC) Organization Information: Site ID: IG Name: [facility] Address: [address] [place] [phone] Director: Dr. Rajinder Grant [facility] C [id number] 22:17:00 Test Item Value Reference Interpretation Comments Range Hepatitis C Ab (test REACTIVE NON-REACTIVE A code = 58240-6) Signal/cutoff (test >11.00 See_Comment H Based o n this code = 16383-2) result, the sample will be testedf or [...] RAC) Organization Information: Site ID: RGA Name: [facility] Lab Address: [address] [place] [address] Director: Rajinder Grant Lab Interpretation Abnormal (test code = 09214-3) [facility] type 1/2 combined Ab, [id number] 22:17:00 Test Item Value Reference Interpretation Comments Range HSV 1 IgM NEGATIVE (test code = 31842-6) HSV 2 IgM NEGATIVE REFERENCE RANG E: NEGATIVE HSV (test IgM is detectab le in serum code = from >90% of pa tracey 03567-2) primary HSV inf ection. However, HSV Ig [...] performancechar acteristics have been deter mined by [facility] [employer].It has not been cleared or appr luis by FDA. This assay hasb een validated pursuant to the CLIA regulations and isused for clinical purpos es. RAC (test Performing code = Organization RAC) Information: Site ID: EZ Name: Phone Warrior/Ryan amos [facility], Address: [address] [place] [address] Director: Crista Camacho MD,PhD,BARI [facility]East [facility] HospitalHIV 1/2 antigen/antibody, fourth generation, with reflexes 2022-02-11 22:17:00 Test Item Value Reference Range Interpretation Comments HIV NON-REACTIVE NON-REACTIVE HIV-1 antigen a nd antigen/ant HIV-1/HIV-2 ant ibodies ibody 4th were notdetecte d. There gen (test is no laborator y evidence code = of HIVinfection . PLEASE 01729-7) NOTE: This info rmation has been disclo sed liv from records wh ose confidentiality may beprotected by state law. If your state requires suchprotection, then the state law prohi bits you frommaking any further disclosure of t he informationwith out the specific writte n consent of the personto whom it pertains, or as otherwise permitted by rodriguez Babb general authori zation for the release of medical orother informa tion is NOT sufficient for this purpose. For ad ditional information ple ase refer tohttp://educat ion.Deehubs/ faq/RUV726 (This link is b eing provided for informational/e ducational purposes only.) The performance of this assay has not been clinicallyvalid ated in patients less t lagunas 2 years old. RAC (test Performing code = RAC) Organization Information: Site ID: BEBA Name: [facility] Address: [address] [place] [phone] Director: Rajinder Grant [facility] HospitalHSV 1 and 2 specific Ab [id number] 22:17:00 Test Item Value Reference Interpretation Comments Range HSV 1 IgG (test <0.90 index code = 5206-8) HSV 2 IgG (test index H Index Inter pretation code = 5209-2) ----- ------- ------- <0.90 Negative 0.90-1.09 Equiv ocal >1.09 Positive This assay utilizes recombinant type-specific antigensto differentiate H SV-1 from HSV-2 infections. Apo sitive result cannot distinguish bet ween recent andpast infection. If r ecent HSV infection i s suspectedbut th e results are neg ative or equivocal, t he assayshould be repeated in 4-6 weeks. The performancechar acteri stics of the as say have not been establishedfor pediatric populations, immunocompromis ed patients,or omar screening. For additional information, pl ease refer to http://educatio n.Tri tDiagnostics.co m/faq/ DWF783 (This li nk is being provided for informational/e ducati onal purposes o nly.) RAC (test code = Performing RAC) Organization Information: Site ID: IG Name: Phone [facility] Lab Address: [address] [place] [address] Director: Dr. Rajinder Grant Lab Interpretation Abnormal (test code = 20860-9) [facility] surface [id number] 22:17:00 Test Item Value Reference Range Interpretation Comments Hepatitis B surface NON-REACTIVE NON-REACTIVE Ag (test code = 5196-1) RAC (test code = RAC) Performing Organization Information: Site ID: RGA Name: [facility] Address: [address] [place] [phone] Director: Rajinder Grant [facility] HospitalRPR with reflex to [id number] 22:17:00 Test Item Value Reference Range Interpretation Comments RPR (test code = NON-REACTIVE NON-REACTIVE 53404-1) RAC (test code = Performing Organization RAC) Information: Site ID: RGA Name: [facility] Address: [address] [place] [address] Director: Rajinder Grant [facility] C virus (HCV), quantitative [id number] 22:17:00 Test Item Value Reference Interpretation Comments Range HCV RNA, <15 NOT DETECTED NOT DETECTED quantitative PCR IU/mL (test code = 30594-3) HCV viral log <1.18 NOT DETECTED NOT DETECTED This bhupendra t was (test code = Log IU/mL performed using 36876-7) Real-Time Polym erase ChainReaction. Reportable Rang e: 15 IU/mL to 100,00 0,000 IU/mL(1.18 Log IU/mL to 8.00 Log IU/ mL). The analytical performance characteristics of thisassay have been determined by [employer]. Th e modifications h ave not been cleare d or approved bythe FDA. This assay has been validated pursu ant to the CLIA regulations and is used for clinic al purposes. For m ore information on this test, go to:http://educa tion. [employer] /faq/NPZ74a9(Th is link is being provided for informational/e ducat ional purposes only.) RAC (test code = Performing RAC) Organization Information: Site ID: IG Name: [facility] Address: [address] [place] [phone] Director: Dr. Rajinder Grant [facility] C [id number] 22:17:00 Test Item Value Reference Interpretation Comments Range Hepatitis C Ab (test REACTIVE NON-REACTIVE A code = 76589-3) Signal/cutoff (test >11.00 See_Comment H Based o n this code = 28271-2) result, the sample will be testedf or [...] RAC) Organization Information: Site ID: RGA Name: Phone [facility] Lab Address: [address] [place] [phone] Director: Rajinder Grant Lab Interpretation Abnormal (test code = 49168-9) [facility] HospitalHSV type 1/2 combined Ab, [id number] 22:17:00 Test Item Value Reference Interpretation Comments Range HSV 1 IgM NEGATIVE (test code = 47073-7) HSV 2 IgM NEGATIVE REFERENCE RANG E: NEGATIVE HSV (test IgM is detectab le in serum code = from >90% of [facility] 277[address]-4) primary HSV inf ection. However, HSV Ig [...] performancechar acteristics have been deter mined by [facility] [employer].It has not been cleared or appr luis by FDA. This assay hasb een validated pursuant to the CLIA regulations and isused for clinical purpos es. RAC (test Performing code = Organization RAC) Information: Site ID: EZ Name: Phone Warrior/Ryan ls [facility], Address: [address] [place] [address] Director: Crista Camacho MD,PhD,BARI [facility] HospitalHIV 1/2 antigen/antibody, fourth generation, with reflexes 2022-02-11 22:17:00 Test Item Value Reference Range Interpretation Comments HIV NON-REACTIVE NON-REACTIVE HIV-1 antigen a nd antigen/ant HIV-1/HIV-2 ant ibodies ibody 4th were notdetecte d. There gen (test is no laborator y evidence code = of HIVinfection . PLEASE 13632-6) NOTE: This info rmation has been disclo theresa peck from records wh ose confidentiality may beprotected by state law. If your state r equires suchprotection, then the state law prohi bits you frommaking any further disclosure of t he informationwith out the specific writte n consent of the personto whom it pertains, or as otherwise permitted by rodriguez Babb general authori zation for the release of medical orother informa tion is NOT sufficient for this purpose. For ad ditional information ple ase refer tohttp://educat ion.Deehubs/ faq/QBB205 (This link is b eing provided for informational/e ducational purposes only.) The performance of this assay has not been clinicallyvalid ated in patients less t lagunas 2 years old. RAC (test Performing code = RAC) Organization Information: Site ID: RGA Name: [facility] Address: [address] [place] [address] Director: Rajinder Grant [facility] HospitalHSV 1 and 2 specific Ab [id number] 22:17:00 Test Item Value Reference Interpretation Comments Range HSV 1 IgG (test <0.90 index code = 5206-8) HSV 2 IgG (test index H Index Inter pretation code = 5209-2) ----- ------ -------- <0.90 Negative 0.90-1.09 Equiv ocal >1.09 Positive This assay utilizes recombinant type-specific antigensto differentiate H SV-1 from HSV-2 [...] omar lily screening. For additional information, pl ease refer to http://educatio n.Ques tDiagnostics.co m/faq/ FFA781 (This li nk is being provided for informational/e ducati onal purposes o nly.) RAC (test code = Performing RAC) Organization Information: Site ID: IG Name: Phone [facility] Lab Address: [address] [place] [address] Director: Dr. Rajinder Grant Lab Interpretation Abnormal (test code = 89056-9) [facility] B surface [id number] 22:17:00 Test Item Value Reference Range Interpretation Comments Hepatitis B surface NON-REACTIVE NON-REACTIVE Ag (test code = 5196-1) RAC (test code = RAC) Performing Organization Information: Site ID: RGA Name: [facility] Address: [address] [place] [address] Director: Rajinder Grant [facility] HospitalRP with reflex to [id number] 22:17:00 Test Item Value Reference Range Interpretation Comments RPR (test code = NON-REACTIVE NON-REACTIVE 63040-3) RAC (test code = Performing Organization RAC) Information: Site ID: RGA Name: [facility] Address: [address] [place] [address] Director: Rajinder Grant [facility] C virus (HCV), quantitative [id number] 22:17:00 Test Item Value Reference Interpretation Comments Range HCV RNA, <15 NOT DETECTED NOT DETECTED quantitative PCR IU/mL (test code = 86838-9) HCV viral log <1.18 NOT DETECTED NOT DETECTED This bhupendra t was (test code = Log IU/mL performed using 08825-4) Real-Time Polym erase [employer]. Reportable Rang e: 15 IU/mL to 100,00 0,000 IU/mL(1.18 Log IU/mL to 8.00 Log IU/ mL). The analytical performance characteristics of thisassay have been determined by [employer]. Th e modifications h ave not been cleare d or approved bythe FDA. This assay has been validated pursu ant to the CLIA regulations and is used for clinic al purposes. For m ore information on this test, go to:http://educa tion. [employer] /faq/RPR74o5(Th is link is being provided for informational/e ducat ional purposes only.) RAC (test code = Performing RAC) Organization Information: Site ID: IG Name: [facility] Address: [address] [place] [address] Director: Dr. Rajinder Grant [facility] HospitalHepatitis C [id number] 22:17:00 Test Item Value Reference Interpretation Comments Range Hepatitis C Ab (test REACTIVE NON-REACTIVE A code = 29437-1) Signal/cutoff (test >11.00 See_Comment H Based o n this code = 25469-2) result, the sample will be testedf or [...] RAC) Organization Information: Site ID: RGA Name: [facility] Address: [address] [place] [address] Director: Rajinder Grant Lab Interpretation Abnormal (test code = 79425-5) [facility], [id number] 22:17:00 Test Item Value Reference Interpretation Comments Range HSV 1 IgM NEGATIVE (test code = 55330-2) HSV 2 IgM NEGATIVE REFERENCE RANG E: NEGATIVE HSV (test IgM is detectab le in serum code = from >90% of [facility] 784[address]-3) primary HSV inf ection. However, HSV Ig [...] performancechar acteristics have been deter mined by [employer].It has not been cleared or appr luis by FDA. This assay hasb een validated pursuant to the CLIA regulations and isused for clinical purpos es. RAC (test Performing code = Organization RAC) Information: Site ID: EZ Name: Phone Warrior/Ryan amos [facility], Address: [address] [place] [address] Director: Crista Camacho MD,PhD,BARI [facility] HospitalHIV 1/2 antigen/antibody, fourth generation, with reflexes 2022-02-11 22:17:00 Test Item Value Reference Range Interpretation Comments HIV NON-REACTIVE NON-REACTIVE HIV-1 antigen a nd antigen/ant HIV-1/HIV-2 ant ibodies ibody 4th were notdetecte d. There gen (test is no laborator y evidence code = of HIVinfection . PLEASE 19768-9) NOTE: This info rmation has been disclo sed liv from records wh ose confidentiality may beprotected by state law. If your state r equires suchprotection, then the state law prohi bits you frommaking any further disclosure of t he informationwith out the specific writte n consent of the personto whom it pertains, or as otherwise permitted by rodriguez careyA general authori zation for the release of medical orother informa tion is NOT sufficient for this purpose. For ad ditional information ple ase refer tohttp://educat ion.Deehubs/ faq/JQR430 (This link is b eing provided for informational/e ducational purposes only.) The performance of this assay has not been clinicallyvalid ated in patients less t lagunas 2 years old. RAC (test Performing code = RAC) Organization Information: Site ID: RGA Name: [facility] Address: [address] [place] [address] Director: Rajinder Grant [facility] HospitalHSV 1 and 2 specific Ab [id number] 22:17:00 Test Item Value Reference Interpretation Comments [...] omar lily screening. For additional information, pl ease refer to http://educatio n.Ques tDiagnostics.co m/faq/ NVU793 (This li nk is being provided for informational/e ducati onal purposes o nly.) RAC (test code = Performing RAC) Organization Information: Site ID: IG Name: [facility] Lab Address: [address] [place] [address] Director: Dr. Rajinder Grant Lab Interpretation Abnormal (test code = 56115-6) [facility] pathology [id number] 15:02:28 Test Item Value Reference Range Interpretation Comments Case number (test code = [id number]) Surgical pathology See link below for report (test code = PDF Lab Report 2255) Result status (test code This is Final Report = [id number]) for [id number] [facility] [id number] 15:02:28 Test Item Value Reference Range Interpretation Comments Case number (test code = [id number]) Surgical pathology See link below for report (test code = PDF Lab Report 2255) Result status (test code This is Final Report = [id number]) for [id number] [facility] [id number] 15:02:28 Test Item Value Reference Range Interpretation Comments Case number (test code = [id number]) Surgical pathology See link below for report (test code = PDF Lab Report 2255) Result status (test code This is Final Report = [id number]) for [id number] [facility] HospitalCOVID-19 qualitative [id number] 22:09:28 Test Item Value Reference Interpretation Comments Range Interpretation (test Negative results do not code = 7705857) preclude COVID-19 infection and should not be used asthe sole basis for treatment or other patient management decisions. Negativeresults must be combined with clinical observations, patient history, andepidemiological information. COVID-19 qualitative Not-Detected Not-Detected RT-PCR result (test code = 90104-1) COVID-19 qualitative See link below for PDF Case Number: RT-PCR (test code = Lab Report [id number]) [facility] [id number] 22:09:28 Test Item Value Reference Interpretation Comments Range Interpretation (test Negative results do not code = 6241360) preclude COVID-19 infection and should not be used asthe sole basis for treatment or other patient management decisions. Negativeresults must be combined with clinical observations, patient history, andepidemiological information. COVID-19 qualitative Not-Detected Not-Detected RT-PCR result (test code = 08926-0) COVID-19 qualitative See link below for PDF Case Number: RT-PCR (test code = Lab Report [id number]) [facility] [id number] 22:09:28 Test Item Value Reference Interpretation Comments Range Interpretation (test Negative results do not code = 4958647) preclude COVID-19 infection and should not be used asthe sole basis for treatment or other patient management decisions. Negativeresults must be combined with clinical observations, patient history, andepidemiological information. COVID-19 qualitative Not-Detected Not-Detected RT-PCR result (test code = 87588-3) COVID-19 qualitative See link below for PDF Case Number: RT-PCR (test code = Lab Report [id number]) [facility] ([facility]19) RNA [Presence] in Respiratory specimen by LATESHA with probe [id number] 17:09:28 Test Item Value Reference Range Interpretation Comments SARS-CoV-2 (COVID-19) RNA Not detected [Presence] in Respiratory specimen by LATESHA with probe detection (test code = 73459-9) Whether patient is employed in a Unknown healthcare setting (test code = 31797-9) Whether the patient has symptoms Unknown related to condition of interest (test code = 10055-8) Whether the patient was Unknown hospitalized for condition of interest (test code = 36494-9) Whether the patient was admitted Unknown to intensive care unit (ICU) for condition of interest (test code = 19886-4) Whether patient resides in a Unknown congregate care setting (test code = 16384-9) status (test code = Unknown 20454-0) Date and time of symptom onset Unknown (test code = 84628-5) [facility]THINPREP TIS AND HPV mRNA [id number] 20:30:00 Test Item Value Reference Interpretation Comments Range Clinical information None gi niurka (test code = 37023-6) Date of last NONE GIVEN menstrual period (test code = 8665-2) Prev. pap: (test code NONE G IVEN = 50446-7) Prev. bx: (test code NONE GI NIURKA = 42021-7) Source (test code = None giv en 35708-8) Statement of adequacy Satisf actory for (test code = 69551-3) evalua tion.Endocervi cony/transformat ion zone componentpresen t.Age and/or menstrua l status not prov ided Interpretation/result Negati ve for : (test code = intraepitheli al 50239-7) lesion or malignancy. Comment (test code = This Pa p test has ) been evaluated with CaptiveMotionassiste d technology. Chemical Technician SYL DUTTON ( CP)CT (test code = 88591-8) screen ing location: [place] [address] [facility], [facility] 7707 2 Comment (test code = EXPLANA TORY NOTE: 2000018) The Pap is a screening test for [...] Detected Not Detected Methodo logy: code = 85195-2) Transcriptio n-Mediat ed Amplificatio n This assay dete cts E6/E7 viral messenger RNA ( mRNA) from 14high-ris k HPV types (16,18,31,33,35 ,39,4 5,51,52,56,58,5 9,66, 68). Cervical sources are req uired for HPV testing .If a vaginal source from a patient who h as had atotal hysterectomy wi removal of cerv ix was submitted, please contact the testing laboratoryfor alternative bhupendra ting options. For additional information, pl ease refer tohttp://educat ion.Skataz/ faq/VFT648x9(Th is link if provide d for information/edu catio nal purposes on ly.) RAC (test code = RAC) Performing Organization Information: Site ID: IG Name: Phone [facility] Address: [address] [place] [address] Director: Dr. Rajinder Grant Site ID: RGA Name: Phone [facility] Address: [address] [place] [address] Director: Rajinder Grant [facility]IN[facility] AND HPV mRNA [id number]/[id number] 20:30:00 Test Item Value Reference Interpretation Comments Range Clinical information None gi niurka (test code = 88708-4) Date of last NONE GIVEN menstrual period (test code = 8665-2) Prev. pap: (test code NONE G IVEN = 38352-7) Prev. bx: (test code NONE GI NIURKA = 33529-8) Source (test code = None giv en 90896-1) Statement of adequacy Satisf actory for (test code = 86495-6) evalua tion.Endocervi cony/transformat ion zone componentpresen t.Age and/or menstrua l status not prov ided Interpretation/result Negati ve for : (test code = intraepitheli al 86220-3) lesion or malignancy. Comment (test code = This Pa p test has ) been evaluated with computerassiste d technology. Chemical Technician [employer], CT ( CP)CT (test code = 70532-1) screen ing location: [facility] [address] [place] [address], [place] [address] Comment (test code = EXPLANA TORY NOTE: 3761755) The Pap is a screening test for [...] Detected Not Detected Methodo logy: code = 35128-8) Transcriptio n-Mediat ed Amplificatio n This assay [...] For additional information, pl ease refer tohttp://educat [employer].Skataz/ faq/NWB464b3(Th is link if provide d for information/edu catio nal purposes on ly.) JACEK (test code = RAC) Performing Organization Information: Site ID: IG Name: Phone [facility] Address: [address] [place] [address] Director: Dr. Rajinder Grant Site ID: RGA Name: Phone [facility] Address: [address] [place] [address] Director: Rajinder Grant [facility]THIN[facility] AND HPV mRNA [id number]/[id number] 20:30:00 Test Item Value Reference Interpretation Comments Range Clinical information None gi niurka (test code = 58302-3) Date of last NONE GIVEN menstrual period (test code = 8665-2) Prev. pap: (test code NONE G IVEN = 74609-6) Prev. bx: (test code NONE GI NIURKA = 22188-6) Source (test code = None giv en ) Statement of adequacy Satisf actory for (test code = 23669-2) evalua tion.Endocervi cony/transformat ion zone componentpresen t.Age and/or menstrua l status not prov ided Interpretation/result Negati ve for : (test code = intraepitheli al 13231-3) lesion or malignancy. Comment (test code = This Pa p test has ) been evaluated with computerassiste d technology. Chemical Technician SYL DUTTON ( CP)CT (test code = 61013-8) screen ing location: [address], [place] [address] 2 Comment (test code = EXPLANA TORY NOTE: 1728009) The Pap is a screening test for [...] Detected Not Detected Methodo logy: code = 07389-0) Transcriptio n-Mediat ed Amplificatio n This assay [...] For additional information, pl ease refer tohttp://educat ion.TimeLab .[employer]/ faq/STD571l1(Th is link if provide d for information/edu catio nal purposes on ly.) RAC (test code = RAC) Performing Organization Information: Site ID: IG Name: Phone [facility] Address: [address] [place] [address] Director: Dr. Rajinder Grant Site ID: RGA Name: Phone [facility] Address: [address] [place] [address] Director: Rajinder Grant [facility] 12 [id number] 18:14:37 Test Item Value Reference Range Interpretation Comments Ventricular rate (test code = 253) Atrial rate (test code = 255) VT interval (test code = 266) QRSD interval [...] of 07-NOV-2021 12:57,-No significant change was found- [address]2022-09-01 18:14:37 Test Item Value Reference Range Interpretation Comments Ventricular rate (test code = 253) Atrial rate (test code = 255) VT interval (test code = 266) QRSD interval [...] of 07-NOV-2021 12:57,-No significant change was found- [address]2022-09-01 18:14:37 Test Item Value Reference Range Interpretation Comments Ventricular rate (test code = 253) Atrial rate (test code = 255) VT interval (test code = 266) QRSD interval [...] of 07-NOV-2021 12:57,-No significant change was found- [facility] (COVID-19) RNA [Presence] in Respiratory specimen by LATESHA with probe [id number] 21:57:49 Test Item Value Reference Range Interpretation Comments SARS-CoV-2 (COVID-19) RNA [Presence] Detected in Respiratory specimen by LATESHA with probe detection (test code = 52945-8) Whether patient is employed in a Unknown healthcare setting (test code = 93957-6) Whether the patient has symptoms Unknown related to condition of interest (test code = 47442-7) Whether the patient was hospitalized Unknown for condition of interest (test code = 53372-4) Whether the patient was admitted to Unknown intensive care unit (ICU) for condition of interest (test code = 26969-0) Whether patient resides in a Unknown congregate care setting (test code = 35463-6) status (test code = Unknown 62628-6) Date and time of symptom onset (test Unknown code = 93090-6) [facility] function [id number] 18:40:00 Test Item Value Reference Range Interpretation Comments Protein (test code 6.6 g/dL 6.1-8.1 = 2885-2) Albumin, S (test 4.1 g/dL 3.6-5.1 code = 175-7) Globulin, total See_Comment [Automated (test code = [...] 6768-6) AST (test code = 13 U/L -1919-8) ALT (test code = 14 U/L 10-08-6) WILDA (test code = FASTING: UNKNOWN WILDA) RAC (test code = Performing RAC) Organization Information: Site ID: RGA Name: Phone [facility] Address: [address] [place] [address] Director: Rajinder Girma [facility]EldoradoThe [facility] HospitalHepatic function [id number] 18:40:00 Test Item Value Reference Range Interpretation Comments Protein (test code 6.6 g/dL 6.1-8.1 = 2885-2) Albumin, S (test 4.1 g/dL 3.6-5.1 code = 1750-10) Globulin, total See_Comment [Automated (test code = [...] 6768-6) AST (test code = 13 U/L 8) ALT (test code = 14 U/L 10-08-6) WILDA (test code = FASTING: UNKNOWN WILDA) RAC (test code = Performing RAC) Organization Information: Site ID: KATERINA Name: Phone [facility] Address: [address] [place] [address] Director: [facility] [id number] 18:40:00 Test Item Value Reference Range Interpretation Comments Protein (test code 6.6 g/dL 6.1-8.1 = 2885-2) Albumin, S (test 4.1 g/dL 3.6-5.1 code = 175-7) Globulin, total See_Comment [Automated (test code = [...] 6768-6) AST (test code = 13 U/L 10-35 1920-8) ALT (test code = 14 U/L - 1742-6) WILDA (test code = FASTING: UNKNOWN WILDA) RAC (test code = Performing RAC) Organization Information: Site ID: RGA Name: Phone [facility] Address: [address] [place] [address] [facility] RNA [Presence] in Respiratory specimen by LATESHA with probe [id number] 20:46:09 Test Item Value Reference Range Interpretation Comments SARS-CoV-2 (COVID-19) RNA Not detected [Presence] in Respiratory specimen by LATESHA with probe detection (test code = 43304-7) Whether patient is employed in a Unknown healthcare setting (test code = 92163-6) Whether the patient has symptoms Unknown related to condition of interest (test code = 50225-8) Whether the patient was Unknown hospitalized for condition of interest (test code = 64157-0) Whether the patient was admitted Unknown to intensive care unit (ICU) for condition of interest (test code = 80336-3) Whether patient resides in a Unknown congregate care setting (test code = 57914-3) status (test code = Unknown 75952-0) Date and time of symptom onset Unknown (test code = 86782-3) [facility] [id number] 05:23:00 Test Item Value Reference Range Interpretation Comments TSH (test code mIU/L Reference Ra nge > = 3016-3) or = 20 Years 0.40-4.50 Range s First trimester 0.26-2.66 Secon d trimester 0.55-2.73 Third trimester 0.43-2.91 RAC (test code Performing = RAC) Organization Information: Site ID: RGA Name: Phone [facility] Address: [address] [place] [address] Director: Rajinder Grant [facility] HospitalThyroid stimulating [id number] 05:23:00 Test Item Value Reference Range Interpretation Comments TSH (test code mIU/L Reference Ra nge > = 3016-3) or = 20 Years 0.40-4.50 Range s First trimester 0.26-2.66 Secon d trimester 0.55-2.73 Third trimester 0.43-2.91 RAC (test code Performing = RAC) Organization Information: Site ID: RGA Name: Phone [facility] Address: [address] [place] [address] Director: Rajinder Grant [facility] HospitalThy[facility] stimulating [id number] 05:23:00 Test Item Value Reference Range Interpretation Comments TSH (test code mIU/L Reference Ra nge > = 3016-3) or = 20 Years 0.40-4.50 Range s First trimester 0.26-2.66 Secon d trimester 0.55-2.73 Third trimester 0.43-2.91 RAC (test code Performing = RAC) Organization Information: Site ID: RGA Name: Phone [facility] Address: [address] [place] [address] Director: Rajinder Grant [facility] RFLX MICR CULT IF [id number] 18:48:00 Test Item Value Reference Range Interpretation [...] LACT) 0.7 mmol/L 0.7-2.0 N LIVER FUNCTION [id number] 15:14:00 Test Item Value Reference Range Interpretation [...] U/L 38-126 N (test code = ALKP) [id number] 15:14:00 Test Item Value Reference Range Interpretation [...] ~~~~~~~~~~~~ ~~~~~~~~~~~~~~~ ~~~~~~~~~~~~ ~~~~~~~~~~~~~~~ ~ BASIC METABOLIC [id number] 15:14:00 Test Item Value Reference Range Interpretation [...] = HEMINDEX) - CT ABD PELVIS W/O [id number] 14:53:00 [facility] 1970 Sex: F FAX: Debo Gutierrez [place]: St: REG Name: HERSON JACKSON [facility] : 1970 Age/S: 51/F [address] Unit: [id number] Loc: [place] [address] Phys: Debo Gutierrez Acct: [id number] Dis Date: Status: REG ER PHONE #: [phone] Exam Date: 08/08/2021 1435 FAX #: [phone] Reason: flank pain EXAMS: CPT CODE: [id number] CT ABD PELVIS W/O CONT 94700 EXAM: CT abdomen and pelvis without contrast HISTORY: 51 years -old Female with flank pain ADMITTING DIAGNOSIS: Chills, fever, low back pain,kidney stone LOCATION CODE: C3 TECHNIQUE: Contrast - [...] 1 Signed Report (CONTINUED) FAX: Debo Gutierrez [place]: St: REG Name: HERSON JACKSON [facility] : 1970Age/S: 51/F [address] Unit: [id number] Loc: [place] [address] Phys: Debo Gutierrez Acct: [id number] Dis Date: Status: REG ER PHONE #: [phone] Exam Date: 08/08/2021 1435 FAX #: Reason: flank pain EXAMS: CPT CODE: [id number] CT ABD PELVIS W/O CONT 49812 (Continued) nephrolithiasis . Evaluation of the bladder [...] free fluid, or free air. 3. Findings suggestpelvic inflammatory disease. RECOMMENDATIONS: None. Internal Coding only:B3 at 1453 Reported and signed by: Sandro Molina MD PAGE 2 Signed Report (CONTINUED) FAX: Debo Gutierrez [place]: St: REG Name: HERSON JACKSON [facility] : 1970 Age/S: 51/F [address] Unit: [id number] Loc: [place] [address] Phys: Debo Gutierrez Acct: [id number] Dis Date: Status: REG ER PHONE #: [phone] Exam Date: 08/08/2021 1435 FAX #: [phone] Reason: flank pain EXAMS: CPT CODE: [id number] CT ABD PELVIS W/O CONT 60021(Continued) CC: Debo Gutierrez Technologist: Debo Ortiz; SCOTT BENAVIDES Trnscrd Dt/Tm: 08/08/2021 (0593) tSTEFANY Orig Print D/T: S: 08/08/2021 (0186 PAGE 3 Signed ReportCBC W/AUTO [id number] 14:21:00 Test Item Value Reference Range Interpretation [...] 3/uL 0.0-0.1 N - XR CHEST 1 [id number] 13:50:00 [facility] 1970 Sex: F FAX: Debo Gutierrez [place]: St: PRE Name: HERSON JACKSON [facility] : 1970 Age/S: 51/F [address] Unit #: [id number] Loc: [place] [address] Phys: Debo Gutierrez Acct: [id number] Dis Date:Status: PRE ER PHONE #: [phone] Exam Date: 08/08/2021 1340 FAX #: [phone] Reason: CODE SEPSIS EXAMS: CPT CODE: [id number] XR CHEST 1 V 31883 CHEST 1 VIEW: INDICATION: CODE SEPSIS COMPARISON: [...] GILLIS; STUDENT 2ND YEAR Trnscrd Date/Time/By: 08/08/2021 (1350) : By: [email or web address] PAGE 1 Signed Report FAX: Debo Gutierrez [place]: St: PRE -- Name: HERSON JACKSON [facility] : 1970 Age/S: 51/F [address] Unit #: [id number] Loc: [place] [address] Phys: Debo Gutierrez [facility] Acct: [id number] Dis Date: Status: PRE ER PHONE #: [phone] Exam Date: 08/08/2021 1340 FAX #: [phone] Reason: CODE SEPSIS EXAMS: CPT CODE: [id number] XR CHEST 1 V 30518 (Continued) Orig Print D/T: S: 08/08/2021 (9074) PAGE 2 Signed ReportTHINPREP TIS PAP AND HPV mRNA E6/E7 REFLEX HPV 16,18/45 2021-06-19 18:43:00 Test Item Value Reference Interpretation Comments Range Clinical information None gi niurka (test code = 75404-2) Date of last NONE GIVEN menstrual period (test code = 8665-2) Prev. pap: (test code NONE G IVEN = 37311-0) Prev. bx: (test code NONE GI NIURKA = 18092-2) Source (test code = None giv en ) Statement of adequacy Satisf actory for (test code = 20112-5) evalua tion.Endocervi cony/transformat ion zone componentpresen t.Age and/or menstrua l status not prov ided Interpretation/result Negati ve for : (test code = intraepitheli al 02896-5) lesion or malignancy. Comment (test code = This Pa p test has ) been evaluated with computerassiste d technology. Review PMT, CT(ASCP)CT utility bill collector screening l ocation: (test code = 21514-7) [facility] [address] [place] [address] 2 Comment (test code = VIRGILIO CASTELLANO NOTE: 6336278) The Pap is a screening test for [...] Detected Not Detected Methodo logy: code = 87890-5) Transcriptio n-Mediat ed Amplificatio n This assay dete cts E6/E7 viral messenger RNA ( mRNA) from 14high-ris k HPV types (16,18,31,33,35 ,39,4 5,51,52,56,58,5 9,66, 68). The analyt ical performance characteristics of thisassay have been determined by [employer].The modifications h ave not been cleare d or approvedby the FDA. This assay has been validated pursu antto the CLIA regula tions and is used forclinical purposes. For additional information, pl ease refer tohttp://educat ion.TimeLab .[employer]/ faq/QLJ208p7(Th is link if provide d for information/edu catio nal purposes on ly.) JACEK (test code = RAC) Performing Organization Information: Site ID: IG Name: Phone [facility] Address: [address] [place] [address] Director: Dr. Rajinder Grant Site ID: RGA Name: Phone [facility] Address: [address] [place] [address] Director: Rajinder Grant [facility]THINPREP [facility]IS PAP AND HPV mRNA E6/E7 REFLEX HPV 16,18/45 2021-06-19 18:43:00 Test Item Value Reference Interpretation Comments Range Clinical information None gi niurka (test code = 28071-1) Date of last NONE GIVEN menstrual period (test code = 8665-2) Prev. pap: (test code NONE G IVEN = 41081-2) Prev. bx: (test code NONE GI NIURKA = 85784-2) Source (test code = None giv en 34896-0) Statement of adequacy Satisf actory for (test code = 46699-8) evalua tion.Endocervi cony/transformat ion zone componentpresen t.Age and/or menstrua l status not prov ided Interpretation/result Negati ve for : (test code = intraepitheli al 59249-2) lesion or malignancy. Comment (test code = This Pa p test has ) been evaluated with computerassiste d technology. Review PMT, CT(ASCP)CT utility bill collector screening l ocation: (test code = 35435-0) [facility] [place] [address], [facility] [address] Comment (test code = EXPLANA TORY NOTE: 4963836) The Pap is a screening test for cervical cancer . It is not a diagno stic test and is sub ject to false negati ve and false posit cole results. It is most reliable when a satisfactory sa mple, regularly obtai kayd, is submitted wi relevant clinic al findings and history, and wh en the Pap result is evaluated along with historic and cu rrent clinical information. HPV mRNA e6/e7 (test Not Detected Not Detected Methodo logy: code = 89628-2) Transcriptio n-Mediat ed Amplificatio n This assay dete cts E6/E7 viral messenger RNA ( mRNA) from 14high-ris k HPV types (16,18,31,33,35 ,39,4 5,51,52,56,58,5 9,66, 68). The analyt ical performance characteristics of thisassay have been determined by [employer].The modifications h ave not been cleare d or approvedby the FDA. This assay has been validated pursu antto the CLIA regula tions and is used forclinical purposes. For additional information, pl ease refer tohttp://educat ion.TimeLab .[employer]/ faq/VRL255y4(Th is link if provide d for information/edu catio nal purposes on ly.) JACEK (test code = RAC) Performing Organization Information: Site ID: IG Name: Phone [facility] Address: [address] [place] [address] Director: Dr. Rajinder Grant Site ID: RGA Name: Phone [facility] Address: [address] [place] [address] Director: Rajinder Grant [facility] HospitalTHIN[facility]P [facility]IS PAP AND HPV mRNA E6/E7 REFLEX HPV 16,18/45 2021-06-19 18:43:00 Test Item Value Reference Interpretation Comments Range Clinical information None gi niurka (test code = 68299-9) Date of last NONE GIVEN menstrual period (test code = 8665-2) Prev. pap: (test code NONE G IVEN = 07398-9) Prev. bx: (test code NONE GI NIURKA = 99510-0) Source (test code = None giv en ) Statement of adequacy Satisf actory for (test code = 29059-1) evalua tion.Endocervi cony/transformat ion zone componentpresen t.Age and/or menstrua l status not prov ided Interpretation/result Negati ve for : (test code = intraepitheli al 21439-6) lesion or malignancy. Comment (test code = This Pa p test has ) been evaluated with Lakeside Speech Language and Learningiste d technology. Review PMT, CT(ASCP)CT utility bill collector screening l ocation: (test code = 15720-9) [facility] [address], [facility] [address] Comment (test code = EXPLANA TORY NOTE: 7798678) The Pap is a screening test for [...] Detected Not Detected Methodo logy: code = 96758-1) Transcriptio n-Mediat ed Amplificatio n This assay dete cts E6/E7 viral messenger RNA ( mRNA) from 14high-ris k HPV types (16,18,31,33,35 ,39,4 5,51,52,56,58,5 9,66, 68). The analyt ical performance characteristics of thisassay have been determined by [employer].The modifications h ave not been cleare d or approvedby the FDA. This assay has been validated pursu antto the CLIA regula tions and is used forclinical purposes. For additional information, pl ease refer tohttp://educat ion.TimeLab .[employer]/ faq/GDY230o1(Th is link if provide d for information/edu catio nal purposes on ly.) RAC (test code = RAC) Performing Organization Information: Site ID: IG Name: Phone [facility] Address: [address] [place] [address] Director: Dr. Rajinder Grant Site ID: RGA Name: Phone [facility] Address: [address] [place] [address] Director: Rajinder Grant [facility], COMPLETE, WITH REFLEX TO [id number] 09:37:00 Test Item Value Reference Interpretation Comments Range Color, UA (test code YELLOW YELLOW = 5778-6) Appearance (test CLEAR CLEAR code = 5767-9) Specific gravity, 1.001-1.035 urine (test code = 5811-5) pH, urine (test code 5.0-8.0 = 5803-2) Glucose, urine (test NEGATIVE NEGATIVE code = 62275-0) Bilirubin, UA (test NEGATIVE NEGATIVE code = 5770-3) Ketones, UA (test NEGATIVE NEGATIVE code = 2514-8) Occult blood, urine NEGATIVE NEGATIVE (test code = 5794-3) Protein, UA (test NEGATIVE NEGATIVE code = 66287-2) Nitrite, UA (test NEGATIVE NEGATIVE code = [...] code = NONE SEEN See_Comment [Autom ated 52705-8) message] The sy stem which generated this result transmitted reference range : < OR = 2 /HPF. Th e reference range was not used to interpret this result as normal/abnormal . Squamous epithelial NONE SEEN See_Comment [Automa aydin cells, UA (test code message ] The system = 92560-9) which generated this result transmitted reference range [...] URINE, code = 630-4) ROUTINE Micro Number: [id number] Test Status: Fi nal Specimen Source : Urine Specimen Quality: Adequa te Result: 1,000-9 ,000 CFU/ML of Group B Streptococcus isolated Beta-hemolytic streptococci ar e predictably susceptible to Penicillin and other beta-lact ams. Susceptibility testing not routinely performed. Cara hassan contact the laboratory with in 3 days if susceptibility testing is francois red. Any amount of g roup B Streptococcus in urine specimens obtained from female s is a marker of gen ital tract colonizat ion. If this patient is , johana florian refer to ACOG guidelines for appropriate screening and management of women. Comment: Erythromycin an d clindamycin are not recommended for treatment of urinary tract infections, but clindamycin may be useful for treatment in penicillin dusty rgic patients for rectovaginal colonization or for intrapartum prophylaxis if indicated. RAC (test code = Performing RAC) Organization Information: Site ID: [facility] Name: Phone [facility] Address: [address] [place] [address] Director: Rajinder Grant Lab Interpretation Abnormal (test code = 44263-6) [facility], COMPLETE, WITH REFLEX TO [id number] 09:37:00 Test Item Value Reference Interpretation Comments Range Color, UA (test code YELLOW YELLOW = 5778-6) Appearance (test CLEAR CLEAR code = 5767-9) Specific gravity, 1.001-1.035 urine (test code = 5811-5) pH, urine (test code 5.0-8.0 = 5803-2) Glucose, urine (test NEGATIVE NEGATIVE code = 34708-4) Bilirubin, UA (test NEGATIVE NEGATIVE code = 5770-3) Ketones, UA (test NEGATIVE NEGATIVE code = 5174-8) Occult blood, urine NEGATIVE NEGATIVE (test code = 5794-3) Protein, UA (test NEGATIVE NEGATIVE code = 51284-1) Nitrite, UA (test NEGATIVE NEGATIVE code = [...] code = NONE SEEN See_Comment [Autom ated 71407-8) message] The sy stem which generated this result transmitted reference range : < OR = 2 /HPF. Th e reference range was not used to interpret this result as normal/abnormal . Squamous epithelial NONE SEEN See_Comment [Automa aydin cells, UA (test code message ] The system = 64085-6) which generated this result transmitted reference range [...] URINE, code = 630-4) ROUTINE Micro Number: [id number] Test Status: Fi nal Specimen Source : Urine Specimen Quality: [place]qua te Result: 1,000-9 ,000 CFU/ML of Group B Streptococcus isolated Beta-hemolytic streptococci ar e predictably susceptible to Penicillin and other beta-lact ams. Susceptibility testing not routinely performed. Plea se contact the laboratory with in 3 days [...] RAC) Organization Information: Site ID: RGA Name: Phone [facility] Address: [address] [place] [address] Director: Rajinder Grant Lab Interpretation Abnormal (test code = 36820-3) [facility], [facility], WITH REFLEX TO [id number] 09:37:00 Test Item Value Reference Interpretation Comments Range Color, UA (test code YELLOW YELLOW = 5778-6) Appearance (test CLEAR CLEAR code = 5767-9) Specific gravity, 1.001-1.035 urine (test code = 5811-5) pH, urine (test code 5.0-8.0 = 5803-2) Glucose, urine (test NEGATIVE NEGATIVE code = 78354-5) Bilirubin, UA (test NEGATIVE NEGATIVE code = 5770-3) Ketones, UA (test NEGATIVE NEGATIVE code = 2514-8) Occult blood, urine NEGATIVE NEGATIVE (test code = 5794-3) Protein, UA (test NEGATIVE NEGATIVE code = 19588-2) Nitrite, UA (test NEGATIVE NEGATIVE code = [...] code = NONE SEEN See_Comment [Autom ated 45812-6) message] The sy stem which generated this result transmitted reference range : < OR = 2 /HPF. Th e reference range was not used to interpret this result as normal/abnormal . Squamous epithelial NONE SEEN See_Comment [Automa aydin cells, UA (test code message ] The system = 99573-7) which generated this result transmitted reference range [...] URINE, code = 630-4) ROUTINE Micro Number: [id number] Test Status: Fi nal Specimen Source : Urine Specimen Quality: Adequa te Result: 1,000-9 ,000 CFU/ML of Group B Streptococcus isolated Beta-hemolytic streptococci ar e predictably susceptible to Penicillin and other beta-lact ams. Susceptibility testing not routinely performed. Plehans se contact the laboratory with in 3 days if susceptibility testing is francois red. Any amount of g roup B Streptococcus in urine specimens obtained from female s is a marker of gen ital tract colonizat ion. If this patient is , plezina e refer to ACOG guidelines for appropriate screening and management of women. Comment: Erythromycin an d clindamycin are not recommended for treatment of urinary tract infections, but clindamycin may be useful for treatment in penicillin dusty rgic patients for rectovaginal colonization or for intrapartum prophylaxis if indicated. RAC (test code = Performing RAC) Organization Information: Site ID: RGA Name: Phone [facility] on Lab Address: [address] [place] [phone] Director: Rajinder Grant Lab Interpretation Abnormal (test code = 75786-6) [facility] urinalysis [id number] 18:20:00 Test Item Value Reference Range Interpretation Comments Color urine, POC (test Straw code = 9868721) Clarity urine, POC (test Clear code = 5919099) Glucose urine, POC (test Negative Negative code = 7073637) Bilirubin urine, POC Negative Negative (test code = 7022285) Ketones urine, POC (test Negative Negative code = 1151850) Specific gravity urine, 1.005-1.030 POC (test code = 4717255) Blood urine, POC (test Trace Negative A code = 0389079) pH urine, POC (test code See_Comment [A utomated message] = 9555848) The system Perfect [employer] h generated this result transmitted ref erence range: 5.0, 5.5 , 6.0, 6.5, 7.0, 7.5, 8.0, 8.5. The refere nce range was not u sed to interpret this result as normal/abnor mal. Protein urine, POC (test Negative Negative code = 8932432) Urobilinogen urine, POC <2.0 See_Comment [Au tomated message] (test code = 0520548) The sy stem which generated this result transmitted ref erence range: <=2.0. T he reference range was not used to int erpret this result as normal/abnormal . Nitrite urine, POC (test Negative Negative code = 8030945) Leukocyte esterase Negative Negative urine, POC (test code = 8858356) Lab Interpretation (test Abnormal code = 52406-8) [facility] urinalysis [id number] 18:20:00 Test Item Value Reference Range Interpretation Comments Color urine, POC (test Straw code = 9364467) Clarity urine, POC (test Clear code = 5504204) Glucose urine, POC (test Negative Negative code = 9289879) Bilirubin urine, POC Negative Negative (test code = 9751963) Ketones urine, POC (test Negative Negative code = 5777310) Specific gravity urine, 1.005-1.030 POC (test code = 5204872) Blood urine, POC (test Trace Negative A code = 1813561) pH urine, POC (test code See_Comment [A utomated message] = 5816041) The system [employer] h generated this result transmitted ref erence range: 5.0, 5.5 , 6.0, 6.5, 7.0, 7.5, 8.0, 8.5. The refere nce range was not u sed to interpret this result as normal/abnor mal. Protein urine, POC (test Negative Negative code = 1657530) Urobilinogen urine, POC <2.0 See_Comment [Au tomated message] (test code = 6187365) The sy stem which generated this result transmitted ref erence range: <=2.0. T he reference range was not used to int erpret this result as normal/abnormal . Nitrite urine, POC (test Negative Negative code = 8941042) Leukocyte esterase Negative Negative urine, POC (test code = 2275056) Lab Interpretation (test Abnormal code = 02875-8) [facility] urinalysis [id number] 18:20:00 Test Item Value Reference Range Interpretation Comments Color urine, POC (test Straw code = 0649983) Clarity urine, POC (test Clear code = 4132957) Glucose urine, POC (test Negative Negative code = 7719693) Bilirubin urine, POC Negative Negative (test code = 7598595) Ketones urine, POC (test Negative Negative code = 5837693) Specific gravity urine, 1.005-1.030 POC (test code = 9880834) Blood urine, POC (test Trace Negative A code = 2749214) pH urine, POC (test code See_Comment [A utomated message] = 7209905) The system [employer] h generated this result transmitted ref erence range: 5.0, 5.5 , 6.0, 6.5, 7.0, 7.5, 8.0, 8.5. The refere nce range was not u sed to interpret this result as normal/abnor mal. Protein urine, POC (test Negative Negative code = 0189570) Urobilinogen urine, POC <2.0 See_Comment [Au tomated message] (test code = 1030966) The sy stem which generated this result transmitted ref erence range: <=2.0. T he reference range was not used to int erpret this result as normal/abnormal . Nitrite urine, POC (test Negative Negative code = 4836839) Leukocyte esterase Negative Negative urine, POC (test code = 1587107) Lab Interpretation (test Abnormal code = 10876-9) Keith Rene-CoV-2 (COVID-19) RNA [Presence] in Respiratory specimen by LATESHA with probe [id number] 09:55:01 Test Item Value Reference Range Interpretation Comments SARS-CoV-2 (COVID-19) RNA Not detected Not-Detected [Presence] in Respiratory specimen by LATESHA with probe detection (test code = 74264-6) Whether patient is employed in a healthcare setting (test code = 79610-1) Whether the patient has symptoms related to condition of interest (test code = 56897-4) Patient was hospitalized because of this condition (test code = 94159-3) Whether the patient was admitted to intensive care unit (ICU) for condition of interest (test code = 60446-9) Whether patient resides in a congregate care setting (test code = 46513-2) [id number] (COVID-19) RNA [Presence] in Respiratory specimen by LATESHA with probe [id number] 03:07:44 Test Item Value Reference Range Interpretation Comments SARS-CoV-2 (COVID-19) RNA Not detected Not-Detected [Presence] in Respiratory specimen by LATESHA with probe detection (test code = 94898-5) Whether patient is employed in a healthcare setting (test code = 73973-8) Whether the patient has symptoms related to condition of interest (test code = 48727-2) Patient was hospitalized because of this condition (test code = 73528-6) Whether the patient was admitted to intensive care unit (ICU) for condition of interest (test code = 22379-4) Whether patient resides in a congregate care setting (test code = 08013-5) [facility]-CoV-2 (COVID-19) RNA [Presence] in Respiratory specimen by LATESHA with probe [id number] 02:34:50 Test Item Value Reference Range Interpretation Comments SARS-CoV-2 (COVID-19) RNA Not detected Not-Detected [Presence] in Respiratory specimen by LATESHA with probe detection (test code = 78192-1) Whether patient is employed in a healthcare setting (test code = 48525-9) Whether the patient has symptoms related to condition of interest (test code = 56520-0) Patient was hospitalized because of this condition (test code = 83009-7) Whether the patient was admitted to intensive care unit (ICU) for condition of interest (test code = 11279-3) Whether patient resides in a congregate care setting (test code = 70854-5) [facility]-CoV-2 (COVID-19) RNA [Presence] in Respiratory specimen by LATESHA with probe [id number] 22:46:50 Test Item Value Reference Range Interpretation Comments SARS-CoV-2 (COVID-19) RNA Not detected Not-Detected [Presence] in Respiratory specimen by LATESHA with probe detection (test code = 83908-7) [facility]-CoV-2 (COVID-19) RNA [Presence] in Respiratory specimen by LATESHA with probe [id number] 10:19:38 Test Item Value Reference Range Interpretation Comments SARS-CoV-2 (COVID-19) RNA Not detected Not-Detected [Presence] in Respiratory specimen by LATESHA with probe detection (test code = 03597-3) [facility]-CoV-2 (COVID-19) RNA [Presence] in Respiratory specimen by LATESHA with probe [id number] 00:17:03 Test Item Value Reference Range Interpretation Comments SARS-CoV-2 (COVID-19) RNA Not detected Not-Detected [Presence] in Respiratory specimen by LATESHA with probe detection (test code = 77775-0) [facility] ([facility]OVID-19) RNA [Presence] in Respiratory specimen by LATESHA with probe [id number] 00:59:15 Test Item Value Reference Range Interpretation Comments SARS-CoV-2 (COVID-19) RNA Not detected Not-Detected [Presence] in Respiratory specimen by LATESHA with probe detection (test code = 81895-9) [facility] i-STAT [id number] 08:12:00 Test Item Value Reference [...] PELVIS WITHOUT CONTRAST, RENAL STONE PROTOCOL:Location code: [id number] HISTORY: Flank painCOMPARISON: CT abdomen and pelvis [...] Range Interpretation Comments COLOR (test code = [place] YELLOW A COLU) CLARITY (test code = [...] 11:03:05CT abdomen and pelvis with contrastLocation Code: [id number] HISTORY: Lower abdominal painCOMPARISON: NoneTechnique: Helical CT [...]
[2022-03-05] MEDS ORDERED: ASPIRIN 81 MG CHEWABLE TABLET ONE (00:50)
[2022-03-05 02:15] LABS: Protime INR 1.04
[2022-03-05 02:16] LABS: Absolute Lymphocytes (CBC) 2.5 K/uL (0.7-4.9); Hematocrit 40.7 % (36.0-45.0); Lymphocytes % 31.4 % (15.3-44.8); MCV 90.8 fL (80-100); MPV 7.7 fL (7.6-11.3); RBC Red Blood Cell Count 4.49 M/uL (3.86-4.86)
[2022-03-05] MEDS ORDERED: MORPHINE 4 MG/ML SYR ONE (03:20)
[2022-03-05 03:22] LABS: Potassium 3.9 mmol/L (3.5-5.1); Troponin High Sensitivity 5.1 pg/mL (<58.9)
--- NOTE | 2022-03-05 04:08 | ER ---
Nurse's Notes [facility] Name: Fany Meza Age: 51 yrs Sex: Female : 1970 Arrival Date: 03/04/2022 Time: 23:57 Bed 16 Private MD: Diagnosis: Chest pain, unspecified Presentation: 03/05 00:14 Chief complaint: Patient states: I have had chest pain all day today and it isn't going kd3 away. it was hurting all day at work and my whole left shoulder and arm is hurting too. I had an abnormal stress test last month. I wore a halter monitor that showed Arrythmias. Coronavirus screen: Vaccine status: Patient reports receiving the 2nd dose of the covid vaccine. [employer]. Ebola Screen: No symptoms or risks identified at this time. Initial Sepsis Screen: Does the patient meet any 2 criteria? No. Patient's initial sepsis screen is negative. Does the patient have a suspected source of infection? No. Patient's initial sepsis screen is negative. Risk Assessment: Do you want to hurt yourself or someone else? Patient reports no desire to harm self or others. Onset of symptoms was March 05, 2022. 00:14 Method Of Arrival: Ambulatory kd3 00:14 Acuity: SHARAN 3 kd3 Triage Assessment: 00:23 General: Appears uncomfortable, Behavior is calm, cooperative. Pain: Complains of pain kd3 in anterior aspect of left upper chest Pain radiates to left arm. Cardiovascular: Patient's skin is warm and dry. Rhythm is sinus rhythm. Respiratory: Airway is patent Trachea midline Respiratory effort is even, unlabored, Respiratory pattern is regular, symmetrical. 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 - Social history:: Smoking status: Patient reports the use of cigarette tobacco products. Screenin:26 Abuse screen: Denies threats or abuse. Nutritional screening: No deficits noted. ke1 Tuberculosis screening: No symptoms or risk factors identified. Fall Risk None identified. Assessment: 01:26 Pain: Pain began 1 day ago. ke1 02:49 Reassessment: resting quietly in bed. ke1 03:23 Pain: Complains of pain in left shoulder Pain currently is 6 out of 10 on a pain scale. ke1 level that patient reports is acceptable is 3 out of 10 on a pain scale. Goal of pain control is to. 04:26 Reassessment: Patient denies pain at this time. Patient states feeling better. Patient ke1 states symptoms have improved. Vital Signs: 00:14 BP 137 / 80; Pulse 66; Resp 21; Temp 98(O); Pulse Ox 98% on R/A; Weight 79.38 kg; kd3 Height 5 ft. 4 in. (162.56 cm); Pain 6/10; 02:48 BP 113 / 82; Pulse 60; Resp 15; Temp 98(O); Pulse Ox 95% on R/A; Pain 1/10; ke1 03:40 Pain 1/10; ke1 04:25 BP 103 / 69; Pulse 56; Resp 17; Temp 98.1(O); Pulse Ox 97% on R/A; Pain 0/10; ke1 00:14 Body Mass Index 30.04 (79.38 kg, 162.56 cm) kd3 ED Course: 03/04 23:57 Patient arrived in ED. ja2 11 00:06 Tam Meraz MD is Attending Physician. rn 00:07 Kortney Severino FNP is [facility] 7 00:23 Triage completed. kd3 00:23 Arm band placed on right wrist. kd3 00:24 Patient maintains SpO2 saturation greater than 95% on room air. kd3 00:48 XRAY Chest (1 view) In Process Unspecified. EDMS 01:05 Troponin HS Sent. kd3 01:05 PT-INR Sent. kd3 01:05 NT PRO-BNP Sent. kd3 01:05 Magnesium Sent. kd3 01:05 D-Dimer Sent. kd3 01:06 CBC with Diff Sent. kd3 01:06 Basic Metabolic Panel Sent. kd3 01:06 Inserted saline lock: 20 gauge in right forearm, using aseptic technique. Blood kd3 collected. 01:14 Jaime Hammonds, RN is Primary Nurse. ke1 01:26 Client placed on continuous cardiac and pulse oximetry monitoring. NIBP monitoring ke1 applied. kier boiler on. Pulse ox on. NIBP on. 01:26 Bed in low position. Call light in reach. Side rails up X 1. ke1 02:00 Inserted saline lock: 22 gauge in left hand, using aseptic technique. ke1 02:02 Basic Metabolic Panel Sent. ke1 02:02 CBC with Diff Sent. ke1 02:02 D-Dimer Sent. ke1 02:02 Magnesium Sent. ke1 02:02 NT PRO-BNP Sent. ke1 02:02 PT-INR Sent. ke1 02:02 Troponin HS Sent. ke1 04:26 No provider procedures requiring assistance completed. IV discontinued. ke1 Administered Medications: 00:50 Drug: Aspirin Chewable Tablet 324 mg Route: PO; kd3 04:27 Follow up: Response: No adverse reaction ke1 03:24 Drug: morphine 4 mg Route: IVP; Infused Over: 4 mins; Site: left hand; ke1 03:40 Follow up: Pain 04/21 Adult; Response: Nausea is decreased ke1 Medication: 04:27 VIS not applicable for this client. ke1 Outcome: 04:07 Discharge ordered by . rn 04:26 Discharged to home ambulatory. ke1 04:26 Condition: good 04:26 Discharge instructions given to patient. 04:27 Patient left the ED. ke1 Signatures: Dispatcher [employer] EDMS Tam Meraz MD MD rn Alexander, Jessica ja2 Doucette, Kyli, RN RN kd3 Jaime Hammonds RN RN ke1 Kortney Severino FNP [employer] ROOFER HELPER jh7
--- NOTE | 2022-03-05 04:08 | EDPHYS ---
Physician Documentation [facility] Name: Fany Meza Age: 51 yrs Sex: Female : 1970 Arrival Date: 03/04/2022 Time: 23:57 Bed 16 Private MD: ED Physician Tam Meraz HPI: 03/05 00:08 This 51 yrs old Female presents to ER via Unassigned with complaints of Chest Pain, jh7 Shoulder Pain, Arm Pain. 00:08 Onset: The symptoms/episode began/occurred today. Associated signs and symptoms: jh7 Pertinent positives: Anxiety, palpitations, shortness of breath, Pertinent negatives: abdominal pain, fever, vomiting, wheezing. "MyPatient reports left-sided chest pain starting this morning. States that it is progressively worsened and is now radiating to her left shoulder and down her arm. No shortness of breath and palpitations with anxiety. 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 Also states that she had an abnormal stress test 1 month ago. Takes amlodipine for hypertension.. 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 - Social history:: Smoking status: Patient reports the use of cigarette tobacco products. ROS: 00:08 Constitutional: Negative for fever, chills, and weight loss, Eyes: Negative for injury, jh7 pain, redness, and discharge, ENT: Negative for injury, pain, and discharge, Neck: Negative for injury, pain, and swelling, Abdomen/GI: Negative for abdominal pain, nausea, vomiting, diarrhea, and constipation, Back: Negative for injury and pain, MS/Extremity: Negative for injury and deformity, Skin: Negative for injury, rash, and discoloration, Neuro: Negative for headache, weakness, numbness, tingling, and seizure. 00:08 Cardiovascular: Positive for chest pain, palpitations, Negative for orthopnea. 00:08 Respiratory: Positive for shortness of breath, Negative for cough, wheezing. 00:08 All other systems are negative. Exam: 00:08 Head/Face: Normocephalic, atraumatic. Eyes: Pupils equal round and reactive to light, jh7 extra-ocular motions intact. Lids and lashes normal. Conjunctiva and sclera are non-icteric and not injected. Cornea within normal limits. Periorbital areas with no swelling, redness, or edema. Neck: Trachea midline, no thyromegaly or masses palpated, and no cervical lymphadenopathy. Supple, full range of motion without nuchal rigidity, or vertebral point tenderness. No Meningismus. Cardiovascular: Regular rate and rhythm with a normal S1 and S2. No gallops, murmurs, or rubs. Normal PMI, no JVD. No pulse deficits. Respiratory: Lungs have equal breath sounds bilaterally, clear to auscultation and percussion. No rales, rhonchi or wheezes noted. No increased work of breathing, no retractions or nasal flaring. Abdomen/GI: Soft, non-tender, with normal bowel sounds. No distension or tympany. No guarding or rebound. No evidence of tenderness throughout. Back: No spinal tenderness. No costovertebral tenderness. Full range of motion. Skin: Warm, dry with normal turgor. Normal color with no rashes, no lesions, and no evidence of cellulitis. MS/ Extremity: Pulses equal, no cyanosis. Neurovascular intact. Full, normal range of motion. Neuro: Awake and alert, GCS 15, oriented to person, place, time, and situation. Motor strength 5/5 in all extremities. Sensory grossly intact. Normal gait. 00:08 Constitutional: The patient appears alert, awake, anxious. 03:05 ECG was reviewed by the Attending Physician. rn Vital Signs: 00:14 BP 137 / 80; Pulse 66; Resp 21; Temp 98(O); Pulse Ox 98% on R/A; Weight 79.38 kg; kd3 Height 5 ft. 4 in. (162.56 cm); Pain 6/10; 02:48 BP 113 / 82; Pulse 60; Resp 15; Temp 98(O); Pulse Ox 95% on R/A; Pain 1/10; ke1 03:40 Pain 1/10; ke1 04:25 BP 103 / 69; Pulse 56; Resp 17; Temp 98.1(O); Pulse Ox 97% on R/A; Pain 0/10; ke1 00:14 Body Mass Index 30.04 (79.38 kg, 162.56 cm) kd3 MDM: 00:06 Patient medically screened. rn 03:05 ED course: Trop still pending, ECG normal without ischemia. Trop neg last visit. Pt rn states had "borderline stress test", is rescheduled to take nuclear stress test with her teasel gig operator. Also reports chronic neck pain and problems and believes this could also be from neck and nerve problem. If troponin negative, patient would like to go home and will f/u for the repeat stress and do as her teasel gig operator recommends. . 04:05 Differential diagnosis: acute myocardial infarction, acute pericarditis, anxiety, rn coronary artery disease chest wall pain, costochondritis, gastroesophageal reflux disease (GERD), pleurisy, pneumothorax, pulmonary embolus, cervical radiculopathy. HEART Score: History: Slightly Suspicious (0), ECG: Normal (0), Age: < or = 45 years (0), Risk Factors: No Risk Factors Known (0), Troponin: < or = 1 x Normal Limit (0), Total Score = 0. Data reviewed: vital signs, nurses notes, lab test result(s), EKG, radiologic studies, plain films, and as a result, I will discharge patient. Counseling: I had a detailed discussion with the patient and/or guardian regarding: the historical points, exam findings, and any diagnostic results supporting the discharge/admit diagnosis, lab results, radiology results, the need for outpatient follow up, to return to the emergency department if symptoms worsen or persist or if there are any questions or concerns that arise at home. Response to treatment: the patient's symptoms have markedly improved after treatment, and as a result, I will discharge patient. ED course: Trop neg, normal ecg, patient would like to go home and f/u as already scheduled with her teasel gig operator. Return precautions given and understood. . 03/05 00:08 Order name: Basic Metabolic Panel; Complete Time: 04:05 [facility] er 03/05 00:08 Order name: CBC with Diff; Complete Time: 02:51 [facility] er 03/05 00:08 Order name: D-Dimer; Complete Time: 02:20 [facility] er 03/05 00:08 Order name: Magnesium; Complete Time: 04:05 [facility] er 03/05 00:08 Order name: NT PRO-BNP; Complete Time: 04:05 [facility] er 03/05 00:08 Order name: PT-INR; Complete Time: 02:20 [facility] er 03/05 00:08 Order name: Troponin HS; Complete Time: 04:05 [facility] er 03/05 00:08 Order name: XRAY Chest (1 view) [facility] er 03/05 00:08 Order name: EKG; Complete Time: 00:09 [facility] er 03/05 00:08 Order name: Cardiac monitoring; Complete Time: 01:25 [facility] er 03/05 00:08 Order name: EKG - Nurse/Tech; Complete Time: 00:35 [facility] er 03/05 00:08 Order name: IV Saline Lock; Complete Time: 01:06 [facility] er 03/05 00:08 Order name: Labs collected and sent; Complete Time: 01:15 [facility] er 03/05 00:08 Order name: O2 Per Protocol; Complete Time: : [facility] er 03/05 00:08 Order name: O2 Sat Monitoring; Complete Time: : [facility] er EC:19 Rate is 64 beats/min. Rhythm is regular. QRS Bozman is Normal. NE interval is normal at [facility] 134 msec. QRS interval is normal at 82 msec. QT interval is normal at 426 msec. No Q waves. T waves are Normal. No ST changes noted. Clinical impression: Normal ECG. Administered Medications: 00:50 Drug: Aspirin Chewable Tablet 324 mg Route: PO; kd3 04:27 Follow up: Response: No adverse reaction ke1 03:24 Drug: morphine 4 mg Route: IVP; Infused Over: 4 mins; Site: left hand; ke1 03:40 Follow up: Pain 04/21 Adult; Response: Nausea is decreased ke1 Disposition: 04:31 Co-signature as Attending Physician, Tam Meraz MD. 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
[2022-03-05 04:36] VITALS: BP 103/69; TEMP 98.1; O2SAT 97
--- NOTE | 2022-03-05 14:54 | RAD REPORT ---
EXAM DESCRIPTION: RAD - Chest Single View - 03/05/2022 12:47 am CLINICAL HISTORY: 51 years Female CHEST PAIN TECHNIQUE: One view of the chest. COMPARISON: No prior exams provided for comparison. FINDINGS: The lungs are clear without focal consolidation, effusion, or pneumothorax. The cardiomedi astinal silhouette and central pulmonary vasculature are normal. No acute osseous abnormalities. IMPRESSION: No acute cardiopulmonary abnormalities. Electronically signed by: Ruba Castillo MD 03/05/2022 12:56 AM BRANDING MACHINE OPERATOR Due to temporary technical issues with the PACS/Fluency reporting system, reports are being signed by the in house radiologists without review as a courtesy to insure prompt reporting. The interpreting radiologist is fully responsible for the content of the report.
--- NOTE | 2022-03-06 16:33 | EKG ---
Test Date: 2022-03-05 Test Time: 00:19:00 Rn Documentation: [facility]SCAR MEASUREMENT RESULTS: Intervals: Rate: 64 AR: 134 QRSD: 82 QT: 426 QTc: 439 [place]: P: 46 AR: 134 QRS: 57 T: 31 INTERPRETIVE STATEMENTS: Normal sinus rhythm Normal ECG Compared to ECG 02/24/2022 16:18:20 No significant changes Electronically Signed On 03-06-22 16:32:48 BRANCH CREDIT COUNSELOR by Dion Araujo
== END 2022-03-05 04:27 | disposition home or self-care (01) ==
LOC: ER 23:55
DX: R07.89 Other chest pain (principal); I10 Essential (primary) hypertension; R00.2 Palpitations; Z72.0 Tobacco use
CPT/HCPCS: 36415; 71045; 80048; 83735; 83880; 84484; 85025; 85379; 85610; 93005; 96374; 99285

== ENCOUNTER 2022-04-06 15:03 | Emergency (ER) | payer OTHER ==
--- OUTSIDE RECORDS SUMMARY | 2022-04-06 15:12 | XMS REPORT | Continuity of Care Document ---
:1970 Author Organization [facility] t Address [address] [place] [address] Care Team Providers Name Role Phone Roger Zapata MD Primary Care Physician Cristóbal Ovalle MD Attending Clinician Maureen Lopez MA Attending Clinician Unavailable Eddie Farris MD Attending Clinician Alicia HEADLEY, Shell Azar Attending Clinician Sweetie Mccallum MA Attending Clinician Unavailable Esthela Small MD Attending Clinician Hans Casper MD Attending Clinician Kortney Tran MA Attending Clinician Unavailable Doug Estevez Attending Clinician [phone] Bijan Carson Attending Clinician Unavailable Ava Leggett MA Attending Clinician Unavailable Ha Carroll MD Attending Clinician Juana Sequeira NP Attending Clinician Zeyad Cohen DO Attending Clinician [phone] Amanda Judd MA Attending Clinician Unavailable Rebecca Brownlee MD Attending Clinician [phone] José Rider MD Attending Clinician Sherwin PAPPAS, Trung Swann Attending Clinician Tita PAPPAS, Juan Carlos Manley Attending Clinician Frandy Qiu MA Attending Clinician Unavailable Twila PAPPAS, Tomas Carey Attending Clinician Sunita Marie CRNA Attending Clinician Sharon Marrero MA Attending Clinician Unavailable Peggy Esparza MD Attending Clinician Pina Urena MA Attending Clinician Unavailable Jami Wyatt MA Attending Clinician Unavailable Ivy Salcedo Attending Clinician Unavailable Mazin PAPPAS, Brenda Deleon Attending Clinician Linda Acosta MD Attending Clinician Di Howell Attending Clinician Unavailable Mario PAPPAS, Myles Griffin Attending Clinician Tyshawn PAPPAS, Nelson Anders Attending Clinician Smooth Alcala PT Attending Clinician [...] Unavailable DREW EMERSON Attending Clinician Unavailable ROGER ZAPATA Attending Clinician Unavailable STEPHY GOODWIN Attending Clinician [...] Physician, No Primary or Family Admitting Clinician Unavaila RG Sidhu Admitting Clinician Unavailable MD RG ARREDONDO Admitting [...] Number Effective Date Expiration Date Ariana MARTIN [id number] 2513-09-01 2029 PLANNING SELF 00:00:00 00:00:00 Problems Condition Condition Condition Status Onset Resolution Last Treating Co mments Source Name Details Category Date Date Treatment Clinician Date Colon Colon Disease Active Overview: [facility] i cancer cancer - [facility] screening screening 00:00: g of this H ospita 00 note l might be different from the original. Added automatic ally from request for surgery [id number] Gastroesop Gastroesop Disease Active Overview : Methodi hageal hageal 7-[address] reflux reflux 00:00: g of this Hospita disease disease 00 note l might be different from the original. 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 Added automatic ally from request for surgery [id number] History of History of Disease Recurre [facility] cervical cervical nce 3-07 st cancer cancer 00:00: Hospita 00 l Bradycardi Bradycardi Disease Active 2020-04 M ethodi a a 0-22 st 00:00: Hospita 00 l Palpitatio Palpitatio [...] Added automatic ally from request for surgery [id number] Transamini Transamini Disease Active M ethodi tis [...] Disease Active Overview: Meth j[facility] bleeding bleeding [address] 00:00: g of this Hospita [...] Active Overview : [facility] g of this 00 note might [...] Disease Active Overview: [facility] 00 note is [...] her EBRT as outlined. She was in long term for a portion of her treatment and [...] Allergie 06-01 Clear s 00:00: Romero 00 [facility] Family History Family Member Diagnosis Comments Start Date Stop Date Source Natural father Hypertension [facility] Natural father COPD Natural father Diabetes Natural father Hypertension [facility] Natural mother Diabetes [facility] Natural mother Hypertension [facility] Natural mother Ar[facility] mother Diabetes Maternal grandmother Cancer Meth [facility] Social History Social Habit Start Date Stop Date Quantity Comments Source History of Cigarette Smoker [facility] Hospital History SDOH [facility] Emotional History SDOH IPV [facility]alt [facility] Abuse [facility] Alcohol intake 2022-02-05 2022-02-05 Ex-drinker (finding) [facility] 00:00:00 00:00:00 Hospital Alcohol Comment 2021-01-30 2021-01-30 occassionally [facility] 00:00:00 00:00:00 Hospital Cigarettes smoked 2020-11-02 2020-11-[address] current (pack per 00:00:00 00:00:00 Hospita l day) - Reported Cigarette 2020-11-02 2020-11-02 [facility] pack-years 00:00:00 00:00:00 Hospital History SDOH 2020-06-06 2020-06-06 2 [facility] Alcohol Frequency 00:00:00 00:00:00 Hospita l History SDOH 2020-06-06 2020-06-06 1 [facility] Alcohol Std 00:00:00 00:00:00 Hospital Drinks History SDOH 2020-06-06 2020-06-06 1 [facility] Alcohol Binge 00:00:00 00:00:00 Hospital History SDOH IPV 2020-03-27 2020-03-27 2 [facility] Physical Abuse 00:00:00 00:00:00 History SDOH IPV 2019-10-31 2019-10-31 2 [facility] Fear 00:00:00 00:00:00 History SDOH 2019-10-31 2019-10-31 2 [facility] Med 00:00:00 00:00:00 History SDAK Food 2018-12-09 2018-12-09 1 [facility] Worry 00:00:00 00:00:00 History SDAK Food 2018-12-09 2018-12-09 1 [facility] Scarcity 00:00:00 00:00:00 Tobacco use and 2018-12-09 2018-12-09 Smokeless tobacco [facility] exposure 00:00:00 00:00:00 non-user Sex [birth year] At [birth year] [facility] 00:00:00 00:00:00 Hospital Smoking Status Start Date Stop Date Source Smokes tobacco daily 2020-11-02 00:00:00 [facility] Occasional tobacco smoker 2018-12-09 00:00:00 [facility] Medications Ordered Filled Start Stop Current Ordering Indication Dosage Frequency Signature Comments Components Source Medication Medication Date Date Medication? Clinician (SIG) Name Name metroNIDAZO 2021-04- No [id number] 500mg Q.5D Take 1 [facility] LE (FLAGYL) 04-[address] 500 MG 00:00: 05:59 (500 mg Hospita tablet 00 :00 total) by l mouth 2 (two) times a day for 7 days. metroNIDAZO 2021-04- No [id number] 500mg Q.5D Take 1 [facility] LE (FLAGYL) 04-[address] 500 MG 00:00: 05:59 (500 mg Hospita tablet 00 :00 total) by l mouth 2 (two) times a day for 7 days. metroNIDAZO 2021-04- No [id number] 500mg Q.5D Take 1 [facility] LE (FLAGYL) 04-[address] 500 MG 00:00: 05:59 (500 mg Hospita tablet 00 :00 total) by l mouth 2 (two) times a day for 7 days. metroNIDAZO 2021-04- No [id number] 500mg Q.5D Take 1 [facility] LE (FLAGYL) [...] hours as needed for mild pain. ibuprofen 2021-04 Yes 600mg Q6H Take 1 Metho di (ADVIL) 600 0-[address] MG tablet 00:00: (600 mg Hospi ta 00 total) by l mouth every 6 (six) hours as needed for mild pain. ibuprofen 2021-04 Yes 600mg Q6H Take 1 Metho di (ADVIL) 600 0-[address] MG tablet 00:00: (600 mg Hospi ta 00 total) by l mouth every 6 (six) hours as needed for mild pain. ibuprofen 2021-04 Yes 600mg Q6H Take 1 [...] 02 by mouth l daily. polyethylen 2021- 202- No 4000mL Take 4,000 Methodi e glycol [...] e glycol 9-14 09-[address] (COLPressy) 00:00: 04:59 mouth once Ho spita 240-22.72-6 00 :00 for 1 l .72 -5.84 dose. gram solution HYDROcodone 2-0 Yes 1{tbl} Q24H Take 1 Me thodi -acetaminop 9-[address] [facility] (Lua) 00:00: mouth Hospi ta 5-325 mg 00 daily as l per tablet needed. Max Daily Amount: 1 tablet HYDROcodone 2-0 Yes 1{tbl} Q24H Take 1 Me thodi -acetaminop 9-[address] [employer]) 00:00: mouth Hospi ta 5-325 mg 00 daily as l per tablet needed. Max Daily Amount: 1 tablet HYDROcodone 2022-0 Yes 1{tbl} Q24H Take 1 Me thodi -acetaminop 9-[address] [facility] (Lua) 00:00: mouth Hospi ta 5-325 mg 00 daily as l per tablet needed. Max Daily Amount: 1 tablet HYDROcodone 2022-0 Yes 1{tbl} Q24H Take 1 Me thodi -acetaminop 9-[address] [facility] (Lua) 00:00: mouth Hospi ta 5-325 mg 00 daily as l per tablet needed. Max Daily Amount: 1 tablet (AMOXICILLI 2022-0 Yes Doug C Take 1 L egacy N) 500 MG 9-06 [facility] capsule by Communi CAPS 00:00: en mouth ty 00 three Health times a day (IBUPROFEN) 2021-0 Yes Doug C Take 1 L egacy 600 MG TABS 12-16 [facility]ermeyd tablet by Communi 00:00: en mouth ty 00 every Health eight hours as needed with food ibuprofen 2021-0 2022- No [facility] (ADVIL) 600 - 10-27 st MG tablet 00:00: 00:00 Hospita 00 :00 l ibuprofen 2021-0 2022- No [facility] (ADVIL) 600 - 10-27 st MG tablet 00:00: 00:00 Hospita 00 :00 l ibuprofen 2021-0 2022- No Methodi (ADVIL) 600 - 10-27 st MG tablet 00:00: 00:00 Hospita 00 :00 l ibuprofen 2021-0 2022- No Methodi (ADVIL) 600 - 10-27 st MG tablet 00:00: 00:00 Hospita 00 :00 l amoxicillin 2021-0 2022- No Metho di (AMOXIL) 12-16 09-15 st 500 MG 00:00: 00:00 Hospita capsule 00 :00 l amoxicillin 2-0 2022- No Metho di (AMOXIL) 12-16 09-15 st 500 MG 00:00: 00:00 Hospita capsule 00 :00 l amoxicillin 2022-0 2022- No Metho di (AMOXIL) 12-16 09-15 st 500 MG 00:00: 00:00 Hospita capsule 00 :00 l amoxicillin 2-0 2022- No Metho di (AMOXIL) 12-16 09-15 st 500 MG 00:00: 00:00 Hospita capsule 00 :00 l metoprolol 2-0 2023- No 25mg Q.5D Take 1 Meth john tartrate 12-09- tablet (25 st (LOPRESSOR) 00:00: 04:59 mg total) Hospita 25 mg 00 :00 by mouth 2 l tablet (two) times a day. metoprolol 2022-0 2023- No 25mg Q.5D Take 1 Meth john tartrate 12-09-31 tablet (25 st (LOPRESSOR) 00:00: 04:59 mg total) Hospita 25 mg 00 :00 by mouth 2 l tablet (two) times a day. metoprolol 2022-0 2023- No 25mg Q.5D Take 1 Meth john tartrate 12-09- tablet (25 st (LOPRESSOR) 00:00: 04:59 mg total) Hospita 25 mg 00 :00 by mouth 2 l tablet (two) times a day. metoprolol 2022-0 2023- No 25mg Q.5D Take 1 Meth john tartrate 12-09- tablet (25 st (LOPRESSOR) 00:00: 04:59 mg total) Hospita 25 mg 00 :00 by mouth 2 l tablet (two) times a day. metoprolol 2022-0 2022- No 25mg Q.5D Take 1 Meth john tartrate 11-28-30 tablet (25 st (LOPRESSOR) 00:00: 00:00 mg total) Hospita 25 mg 00 :00 by mouth 2 l tablet (two) times a day. metoprolol 2-0 2022- No 25mg Q.5D Take 1 Meth john tartrate 11-28-30 tablet (25 st (LOPRESSOR) 00:00: 00:00 mg total) Hospita 25 mg 00 :00 by mouth 2 l tablet (two) times a day. metoprolol 2021-0 2- No 25mg Q.5D Take 1 Meth john tartrate 11-28- tablet (25 st (LOPRESSOR) 00:00: 00:00 mg total) Hospita 25 mg 00 :00 by mouth 2 l tablet (two) times a day. metoprolol 2-0 2022- No 25mg Q.5D Take 1 Meth john tartrate 11-28-30 tablet (25 st (LOPRESSOR) 00:00: 00:00 mg total) Hospita 25 mg 00 :00 by mouth 2 l tablet (two) times a day. polyethylen 2021-2021- No USE Met hodi e glycol 11-[address] (Plenvu) 00:00: 00:00 BY Hospita 140-9-5.2 00 :00 PHYSICIAN l gram powder in packet, sequential solution (RESTRICTED ) polyethylen 2021-2021- No USE Met hodi e glycol 11-17 [...] 1{tbl} Q.5D Take 1 M ethodi -pot 11-[address] clavulanate 00:00: 00:00 mouth [...] mg times a per tablet day. promethazin No 25mg Take 1 Met hodi e 11-08 tablet (25 st (PHENERGAN) 00:00: 00:00 mg total) Hospita 25 MG 00 :00 by mouth. l tablet azithromyci 2021- No TK 2 TS PO Methodi n 11-01 ON DAY 1, st (ZITHROMAX) 00:00: 00:00 THEN TK 1 Hospita 250 MG 00 :00 T PO D FOR l tablet 4 DAYS lidocaine 2 2021- No Metho di % solution 11-01 st 00:00: 00:00 Hospita 00 :00 l azithromyci 2021-2021- No TK 2 TS PO Methodi n 11-01 ON DAY 1, st (ZITHROMAX) 00:00: 00:00 THEN TK 1 Hospita 250 MG 00 :00 T PO D FOR l tablet 4 DAYS lidocaine 2 2021- No Metho di % solution 11-01 st 00:00: 00:00 Hospita 00 :00 l azithromyci 2021-0 2021- No TK 2 TS PO Methodi n 11-01 ON DAY 1, st (ZITHROMAX) 00:00: 00:00 THEN TK 1 Hospita 250 MG 00 :00 T PO D FOR l tablet 4 DAYS lidocaine 2 2021- No Metho di % solution 11-01 st 00:00: 00:00 Hospita 00 :00 l azithromyci 2021-0 2021- No TK 2 TS PO Methodi n 11-01 ON DAY 1, st (ZITHROMAX) 00:00: 00:00 THEN TK 1 Hospita 250 MG 00 :00 T PO D FOR l tablet 4 DAYS lidocaine 2 2021- No Metho di % solution 11-01 st 00:00: 00:00 Hospita 00 :00 l pantoprazol 2021- No 40mg Q.5D Take 1 Met hodi e 10-29-15 tablet (40 st (Protonix) 00:00: 00:00 mg total) H ospita 40 MG EC 00 :00 by mouth 2 l tablet (two) times a day for 90 days. pantoprazol 2021- No 40mg Q.5D Take 1 Met hodi e 10-29-15 tablet (40 st (Protonix) 00:00: 00:00 mg total) H ospita 40 MG EC 00 :00 by mouth 2 l tablet (two) times a day for 90 days. pantoprazol 2021- No 40mg Q.5D Take 1 Met hodi e 10-29- tablet (40 st (Protonix) 00:00: 00:00 mg total) H ospita 40 MG EC 00 :00 by mouth 2 l tablet (two) times a day for 90 days. pantoprazol 2021-2021- No 40mg Q.5D Take 1 Met hodi e 10-29-15 tablet (40 st (Protonix) 00:00: 00:00 mg total) H ospita 40 MG EC 00 :00 by mouth 2 l tablet (two) times a day for 90 days. sodium,pota 2021- No 177mL Take 1 Me [...] PROCEDURE) for up to 1 day. sodium,pota 2021-0 2021- No 177mL Take 1 Me thodi ssium,mag 10-29- Bottle st sulfates 00:00: 04:59 (177 mL Hospi ta (Suprep 00 :00 total) by l Bowel Prep mouth take Kit) as 17.5-3.13-1 directed .6 gram (DAY PRIOR recon soln TO PROCEDURE) for up to 1 day. sodium,pota 2021-0 2021- No 177mL Take 1 Me thodi ssium,mag 10-29- Bottle st sulfates 00:00: 04:59 (177 mL Hospi ta (Suprep 00 :00 total) by l Bowel Prep mouth take Kit) as 17.5-3.13-1 directed .6 gram (DAY PRIOR recon soln TO PROCEDURE) for up to 1 day. cyclobenzap 2021- No 10mg Q.27012886 Take 1 Methodi rine 7-29 12-15 [id number] tablet (10 st (FLEXERIL) 00:00: 00:00 3D mg total) H ospita 10 mg 00 :00 by mouth 3 l tablet (three) times a day as needed. cyclobenzap 2021- No 10mg Q.[id number] Take 1 Methodi rine 7-19 -15 [id number] tablet (10 st (FLEXERIL) 00:00: 00:00 3D mg total) H ospita 10 mg 00 :00 by mouth 3 l tablet (three) times a day as needed. cyclobenzap 2021-0 2021- No 10mg Q.[id number] Take 1 Methodi rine 7-19 -15 [id number] tablet (10 st (FLEXERIL) 00:00: 00:00 3D mg total) H ospita 10 mg 00 :00 by mouth 3 l tablet (three) times a day as needed. cyclobenzap 2021-2021- No 10mg Q.[id number] Take 1 Methodi rine 7-19 -15 [id number] tablet (10 st (FLEXERIL) 00:00: 00:00 3D mg total) H ospita 10 mg 00 :00 by mouth 3 l tablet (three) times a day as needed. albuterol 2021- No 2{puff} Q4H Inhale 2 Methodi (PROAIR 7 08-[address] HFA) 90 00:00: 04:59 every 4 Hospit a mcg/actuati 00 :00 (four) l on inhaler hours as needed for wheezing for up to 30 days. albuterol 2021- No 2{puff} Q4H Inhale 2 [facility] (PROAIR 7 08-[address] HFA) 90 00:00: 04:59 every 4 Hospit a mcg/actuati 00 :00 (four) l on inhaler hours as needed for wheezing for up to 30 days. albuterol 2021- No 2{puff} Q4H Inhale 2 [facility] (PROAIR 10-15 08-[address] HFA) 90 00:00: 04:59 every 4 Hospit a mcg/actuati 00 :00 (four) l on inhaler hours as needed for wheezing for up to 30 days. albuterol 2021- No 2{puff} Q4H Inhale 2 [facility] (PROAIR 7 08-[address] HFA) 90 00:00: 04:59 every 4 Hospit a mcg/actuati 00 :00 (four) l on inhaler hours as needed for wheezing for up to 30 days. predniSONE 2021- No 40mg QD Take 2 Meth john (DELTASONE) 10-15- tablets st 20 mg 00:00: 04:59 (40 mg Hospita tablet 00 :00 total) by l mouth daily for 4 days. predniSONE 2021-0 2021- No 40mg QD Take 2 Meth john (DELTASONE) 10-15-[address] 20 mg 00:00: 04:59 (40 mg Hospita tablet 00 :00 total) by l mouth daily for 4 days. predniSONE 2021-2021- No 40mg QD Take 2 Meth john (DELTASONE) 10-15- tablets st 20 mg 00:00: 04:59 (40 mg Hospita tablet 00 :00 total) by l mouth daily for 4 days. predniSONE 2021-2021- No 40mg QD Take 2 Meth john (DELTASONE) 10-15- tablets st 20 mg 00:00: 04:59 (40 mg Hospita tablet 00 :00 total) by l mouth daily for 4 days. HYDROcodone 2021- No [id number] 1{tbl} Q6H Take 1 Methodi -acetaminop 7- 07-[address] hen (Lua) 00:00: 04:59 mouth Hosp shai 5-325 mg 00 :00 every 6 l per tablet (six) hours as needed for moderate pain for up to 3 days .acute pain. Max Daily Amount: 4 tablets HYDROcodone 2021-2021- No [id number] 1{tbl} Q6H Take 1 Methodi -acetaminop 7- 07-[address] hen (Lua) 00:00: 04:59 mouth Hosp shai 5-325 mg 00 :00 every 6 l per tablet (six) hours as needed for moderate pain for up to 3 days .acute pain. Max Daily Amount: 4 tablets HYDROcodone 2021-2021- No [id number] 1{tbl} Q6H Take 1 Methodi -acetaminop 7- 07-[address] hen (Lua) 00:00: 04:59 mouth Hosp shai 5-325 mg 00 :00 every 6 l per tablet (six) hours as needed for moderate pain for up to 3 days .acute pain. Max Daily Amount: 4 tablets [place]DROcodone 2021-2021- [place] [id number] 1{tbl} Q6H Take 1 Methodi -acetaminop 7-06 07-[address] hen (Lua) 00:00: 04:59 mouth Hosp shai 5-325 mg [...] l mouth daily for 4 days. albuterol 2{puff} Q4H Inhale 2 [facility]i (PROAIR 7-05 07-[address] HFA) 90 00:00: 00:00 every 4 Hospit a mcg/actuati 00 :00 (four) l on inhaler hours as needed for wheezing for up to 30 days. HYDROcodone 2021- No [id number] 1{tbl} Q6H Take 1 Methodi -acetaminop -08 16-[address] hen (Lua) 00:00: 00:00 mouth Hosp shai 5-325 mg [...] wheezing for up to 30 days. [place]DROcodone 2021-2021- [place] [id number] 1{tbl} Q6H Take 1 Methodi -acetaminop 10-14-[address] hen (Lua) 00:00: 00:00 mouth Hosp shai 5-325 mg [...] wheezing for up to 30 days. HYDROcodone 2022-0 2021- No [id number] 1{tbl} Q6H Take 1 Methodi -acetaminop 10-[address] hen (Lua) 00:00: 00:00 mouth Hosp shai 5-325 mg [...] wheezing for up to 30 days. HYDROcodone 2021-0 2021- [place] [id number] 1{tbl} Q6H Take 1 Methodi -acetaminop 10-14- tablet by st hen (Lua) 00:00: 00:00 mouth Hosp shai 5-325 mg 00 :00 every 6 l per tablet (six) hours as needed for moderate pain for up to 3 days .acute pain. Max Daily Amount: 4 tablets pantoprazol 2021-0 2- No 20mg QD Take 1 Met hodi e 10-12- tablet (20 st (PROTONIX) 00:00: 04:59 mg total) H ospita 20 MG EC 00 :00 by mouth l tablet daily for 30 days. pantoprazol 2021-0 2022- No 20mg QD Take 1 Met hodi e 10-12-03 tablet (20 st (PROTONIX) 00:00: 04:59 mg total) H ospita 20 MG EC 00 :00 by mouth l tablet daily for 30 days. pantoprazol 2021-0 2- No 20mg QD Take 1 Met hodi e 10-12-03 tablet (20 st (PROTONIX) 00:00: 04:59 mg [...] 20mg QD Take 1 Met hodi e -06 16- tablet (20 st (PROTONIX) 00:00: 00:00 mg [...] per Dose day for 5 days. pantoprazol 2021-2021- No 20mg QD Take 1 Met hodi e 10-12- tablet (20 st (PROTONIX) 00:00: 00:00 mg [...] e 10-12- tablet (20 st (PROTONIX) 00:00: 00:00 mg [...] per Dose day for 5 days. pantoprazol 2021-2021- No 20mg QD Take 1 Met hodi e 10-12- tablet (20 st (PROTONIX) 00:00: 00:00 mg total) H ospita 20 MG EC 00 :00 by mouth l tablet daily for 30 days. promethazin 2021-0 2021- No Metho di e-DM 10-11 st (PROMETHAZI 00:00: 00:00 Hospi ta NE-DM) 00 :00 l 6.25-15 mg/5 mL syrup promethazin 2021-0 2- No Metho di e-DM 10-11 st (PROMETHAZI 00:00: 00:00 Hospi ta NE-DM) 00 :00 l 6.25-15 mg/5 mL syrup promethazin 2021-0 2021- No Metho di e-DM 10-11 st (PROMETHAZI 00:00: 00:00 Hospi ta NE-DM) 00 :00 l 6.25-15 mg/5 mL syrup promethazin 2021-0 2021- No Metho di e-DM 10-11 st (PROMETHAZI 00:00: 00:00 Hospi ta NE-DM) 00 :00 l 6.25-15 mg/5 mL syrup [place]DROcodone 2021-2021- [place] [id number] 1{tbl} Q6H Take 1 Methodi -acetaminop 6-23 06-[address] [facility] (Lua) 00:00: 04:59 mouth Hosp shai 5-325 mg 00 :00 every 6 l per tablet (six) hours as needed for moderate pain or severe pain for up to 2 days .acute pain. Max Daily Amount: 4 tablets HYDROcodone 2021-0 2021- No [id number] 1{tbl} Q6H Take 1 Methodi -acetaminop 6-23 06-[address] hen (Lua) 00:00: 04:59 mouth Hosp shai 5-325 mg 00 :00 every 6 l per tablet (six) hours as needed for moderate pain or severe pain for up to 2 days .acute pain. Max Daily Amount: 4 tablets HYDROcodone 2021-0 2021- No [id number] 1{tbl} Q6H Take 1 Methodi -acetaminop 6-23 06-[address] hen (Lua) 00:00: 04:59 mouth Hosp shai 5-325 mg 00 :00 every 6 l per tablet (six) hours as needed for moderate pain or severe pain for up to 2 days .acute pain. Max Daily Amount: 4 tablets HYDROcodone 2021-0 2021- No 1{tbl} Q6H Take 1 Methodi -acetaminop 6-23 06-[address] hen (Lua) 00:00: 04:59 mouth Hosp shai 5-325 mg 00 :00 every 6 l per tablet (six) hours as needed for moderate pain or severe pain for up to 2 days .acute pain. Max Daily Amount: 4 tablets HYDROcodone 2021-0 2021- No 1{tbl} Q6H Take 1 Methodi -acetaminop 6-21 06-[address] hen (Lua) 00:00: 00:00 mouth Hosp shai 5-325 mg 00 :00 every 6 l per tablet (six) hours as needed for moderate pain or severe pain for up to 2 days .acute pain. Max Daily Amount: 4 tablets HYDROcodone 2021-0 2021- 1{tbl} Q6H Take 1 Methodi -acetaminop 6-21 06-[address] hen (Lua) 00:00: 00:00 mouth Hosp shai 5-325 mg 00 :00 every 6 l per tablet (six) hours as needed for moderate pain or severe pain for up to 2 days .acute pain. Max Daily Amount: 4 tablets HYDROcodone 2021-0 2021- 1{tbl} Q6H Take 1 Methodi -acetaminop 6-21 06-[address] hen (Lua) 00:00: 00:00 mouth Hosp shai 5-325 mg 00 :00 every 6 l per tablet (six) hours as needed for moderate pain or severe pain for up to 2 days .acute pain. Max Daily Amount: 4 tablets HYDROcodone 2021-0 2021- No 1{tbl} Q6H Take 1 Methodi -acetaminop 6-21 06-[address] hen (Lua) 00:00: 00:00 mouth Hosp shai 5-325 mg 00 :00 every 6 l per tablet (six) hours as needed for moderate pain or severe pain for up to 2 days .acute pain. Max Daily Amount: 4 tablets HYDROcodone 2021-0 2021- No 1{tbl} Q6H Take 1 Methodi -acetaminop 6-21 06-[address] hen (Lua) 00:00: 00:00 mouth Hosp shai 5-325 mg 00 :00 every 6 l per tablet (six) hours as needed for moderate pain or severe pain for up to 2 days .acute pain. Max Daily Amount: 4 tablets HYDROcodone 2022-0 2021- No [id number] 1{tbl} Q6H Take 1 Methodi -acetaminop 6-21 06-[address] hen (Lua) 00:00: 00:00 mouth Hosp shai 5-325 mg 00 :00 every 6 l per tablet (six) hours as needed for moderate pain or severe pain for up to 2 days .acute pain. Max Daily Amount: 4 tablets HYDROcodone 2022-0 2021- No [id number] 1{tbl} Q6H Take 1 Methodi -acetaminop 6-21 06-[address] hen (Lua) 00:00: 00:00 mouth Hosp shai 5-325 mg 00 :00 every 6 l per tablet (six) hours as needed for moderate pain or severe pain for up to 2 days .acute pain. Max Daily Amount: 4 tablets HYDROcodone 2022-0 2021- No [id number] 1{tbl} Q6H Take 1 Methodi -acetaminop 6-21 -[address] hen (Lua) 00:00: 00:00 mouth Hosp shai 5-325 mg 00 :00 every 6 l per tablet (six) hours as needed for moderate pain or severe pain for up to 2 days .acute pain. Max Daily Amount: 4 tablets HYDROcodone 2022-0 2021- No [id number] 1{tbl} Q6H Take 1 Methodi -acetaminop 6-21 06-[address] hen (Lua) 00:00: 00:00 mouth Hosp shai 5-325 mg 00 :00 every 6 l per tablet (six) hours as needed for moderate pain or severe pain for up to 2 days .acute pain. Max Daily Amount: 4 tablets HYDROcodone 2022-0 2- No [id number] 1{tbl} Q6H Take 1 Methodi -acetaminop 6-21 06-[address] hen (Lua) 00:00: 00:00 mouth Hosp shai 5-325 mg 00 :00 every 6 l per tablet (six) hours as needed for moderate pain or severe pain for up to 2 days .acute pain. Max Daily Amount: 4 tablets HYDROcodone 2022-0 2022- No [id number] 1{tbl} Q6H Take 1 Methodi -acetaminop 6-21 -[address] hen (Lua) 00:00: 00:00 mouth Hosp shai 5-325 mg 00 :00 every 6 l per tablet (six) hours as needed for moderate pain or severe pain for up to 2 days .acute pain. Max Daily Amount: 4 tablets HYDROcodone 2022-0 2022- No [id number] 1{tbl} Q6H Take 1 Methodi -acetaminop 6-21 -[address] hen (Lua) 00:00: 00:00 mouth Hosp shai 5-325 mg 00 :00 every 6 l per tablet (six) hours as needed for moderate pain or severe pain for up to 2 days .acute pain. Max Daily Amount: 4 tablets amLODIPine 2-0 2022- No 5mg QD Take 1 Meth john (NORVASC) 5 6-05 20-19 tablet (5 st mg tablet 00:00: 00:00 mg total) Ho spita 00 :00 by mouth l daily. amLODIPine 2-0 2022- No 5mg QD Take 1 Meth john (NORVASC) 5 6-05 20-19 tablet (5 st mg tablet 00:00: 00:00 mg total) Ho spita 00 :00 by mouth l daily. amLODIPine 2022-0 2022- No 5mg QD Take 1 [facility] (NORVASC) 5 6-05 20-19 tablet (5 st mg tablet 00:00: 00:00 mg total) [facility] 00 :00 by mouth l daily. amLODIPine 2022-0 2022- No 5mg QD Take 1 [facility] (NORVASC) 5 6-05 20-19 tablet (5 st mg tablet 00:00: 00:00 mg total) [facility] 00 :00 by mouth l daily. naproxen 2021-0 Yes TAKE 1 [facility] (NAPROSYN) 5-22 TABLET(500 st 500 MG 00:00: MG) BY [facility]osp[facility] tablet 00 MOUTH l TWICE DAILY WITH MEALS naproxen 2021-0 Yes TAKE 1 [facility] (NAPROSYN) 5-22 TABLET(500 st 500 MG 00:00: MG) BY [facility] tablet 00 MOUTH l TWICE DAILY WITH MEALS naproxen Yes TAKE 1 [facility] (NAPROSYN) 5-22 TABLET(500 st 500 MG 00:00: MG) BY [facility]ospita tablet 00 MOUTH l TWICE DAILY WITH MEALS naproxen 0 Yes TAKE 1 [facility] (NAPROSYN) 5-22 TABLET(500 st 500 MG 00:00: MG) BY [facility]ospita tablet 00 MOUTH l TWICE DAILY WITH MEALS meclizine 2021- No 25mg [id number] Take 1 [facility] (ANTIVERT) 08-26-10 [id number] tablet (25 st 25 mg 00:00: 00:00 3D mg total) Hospit a tablet 00 :00 by mouth 3 l (three) times a day as needed for dizziness for up to 30 days. meclizine 2021- No 25mg [id number] Take 1 [facility] (ANTIVERT) 08-26- [id number] tablet (25 st 25 mg 00:00: 00:00 3D mg total) Hospit a tablet 00 :00 by mouth 3 l (three) times a day as needed for dizziness for up to 30 days. meclizine 2021- No 25mg Q.[id number] Take 1 [facility] (ANTIVERT) 08-26-10 [id number] tablet (25 st 25 mg 00:00: 00:00 3D mg total) Hospit a tablet 00 :00 by mouth 3 l (three) times a day as needed for dizziness for up to 30 days. meclizine 2021- No 25mg Q.[id number] Take 1 [facility] (ANTIVERT) 08-26-10 [id number] tablet (25 st 25 mg 00:00: 00:00 3D mg total) Hospit a tablet 00 :00 by mouth 3 l (three) times a day as needed for dizziness for up to 30 days. pregabalin 2021- No 50mg Q.5D Take 1 [facility] (Lyrica) 50 08-[address] MG capsule 00:00: 00:00 (50 mg [facility] 00 :00 total) by l mouth 2 (two) times a day for 60 days. pregabalin 2022-0 2022- No 50mg Q.5D Take 1 [facility] (Lyrica) 50 5-05 06-[address] MG capsule 00:00: 00:00 (50 mg [facility] 00 :00 total) by l mouth 2 (two) times a day for 60 days. pregabalin 2022-0 2022- No 50mg Q.5D Take 1 [facility] (Lyrica) 50 5-05 06-[address] MG capsule 00:00: 00:00 (50 mg [facility] 00 :00 total) by l mouth 2 (two) times a day for 60 days. pregabalin 2022-0 2022- No 50mg Q.5D Take 1 [facility] (Lyrica) 50 5-05 06-[address] MG capsule 00:00: 00:00 (50 mg [facility] 00 :00 total) by l mouth 2 (two) times a day for 60 days. doxycycline 2022-0 2022- No 100mg Take 100 [facility] (VIBRAMYCIN 4-30 06-[address] ) 100 MG 00:00: 00:00 mouth. Hospit a capsule 00 :00 l metroNIDAZO 2-0 2022- No 500mg Q.5D Take 500 [facility] [...] :00 (two) l times a day. doxycycline 2021- No 100mg Take 100 [facility] (VIBRAMYCIN 4-30 06-[address] ) 100 MG 00:00: 00:00 mouth. Hospit a capsule 00 :00 l metroNIDAZO 2021- No 500mg Q.5D Take 500 [facility] LE (FLAGYL) 4-30 06-[address] 500 MG 00:00: 00:00 mouth 2 Hospita tablet 00 :00 (two) l times a day. acetamin[place] 2021- [place] [id number] 1{tbl} Q6H Take 1-2 [facility] en-codeine 4-27 05-[address] (TYLENOL 00:00: 04:59 mouth [facility]ospita WITH 00 :00 every 6 l CODEINE #3) (six) 300-30 mg hours as per tablet needed for moderate pain for up to 5 days .acute pain. acetamin[place] 2021- [place] [id number] 1{tbl} Q6H Take 1-2 [facility] en-codeine 4-27 05-[address] (TYLENOL 00:00: 04:59 mouth [facility] WITH 00 :00 every 6 l CODEINE #3) (six) 300-30 mg hours as per tablet needed for moderate pain for up to 5 days .acute pain. acetamin[place] 2021- [place] [id number] 1{tbl} Q6H Take 1-2 [facility] en-codeine 4-27 05-[address] (TYLENOL 00:00: 04:59 mouth [facility] WITH 00 :00 every 6 l CODEINE #3) (six) 300-30 mg hours as per tablet needed for moderate pain for up to 5 days .acute pain. acetaminoph 2021- [place] [id number] 1{tbl} Q6H Take 1-2 [facility] en-codeine 4-27 05-[address] (TYLENOL 00:00: 04:59 mouth [facility] WITH 00 :00 every 6 l CODEINE #3) (six) 300-30 mg hours as per tablet needed for moderate pain for up to 5 days .acute pain. amoxicillin 2021- No [id number] 500mg Q.5D Take 1 [facility] (AMOXIL) 07-24-[address] 500 MG 00:00: 04:59 (500 mg Hospita tablet 00 :00 total) by l mouth 2 (two) times a day for 7 days. amoxicillin 2021-2021- No [id number] 500mg Q.5D Take 1 [facility] (AMOXIL) -24 07-[address] 500 MG 00:00: 04:59 (500 mg Hospita tablet 00 :00 total) by l mouth 2 (two) times a day for 7 days. amoxicillin 2021-0 2021- No [id number] 500mg Q.5D Take 1 [facility] (AMOXIL) 07-24- tablet st 500 MG 00:00: 04:59 (500 mg [facility]ospita tablet 00 :00 total) by l mouth 2 (two) times a day for 7 days. amoxicillin 2021-2021- No [id number] 500mg Q.5D Take 1 [facility] (AMOXIL) 07-24- tablet st 500 MG 00:00: 04:59 (500 mg [facility]ospita tablet 00 :00 total) by l mouth 2 (two) times a day for 7 days. nicotine 2021- No 1{patch Q24H Place 1 [facility] (Nicoderm 4-13 05-14 } patch on st C[facility]) 21 00:00: 04:59 the skin Hospit a mg/24 hr 00 :00 daily for l 30 days. nicotine 2021- No 1{patch Q24H Place [...] :00 daily for l 30 days. amLODIPine 2-0 2022- No 5mg QD Take 1 [facility] (NORVASC) 5 4- 06-02 tablet (5 st mg tablet 00:00: 00:00 mg total) [facility] 00 :00 by mouth l daily. amLODIPine 2-0 2022- No 5mg QD Take 1 [facility] (NORVASC) 5 4- 06-02 tablet (5 st mg tablet 00:00: 00:00 mg total) [facility] 00 :00 by mouth l daily. amLODIPine 2-0 2022- No 5mg QD Take 1 [facility] (NORVASC) 5 - 06- tablet (5 st mg tablet 00:00: 00:00 mg total) [facility] 00 :00 by mouth l daily. amLODIPine 2-0 2022- No 5mg QD Take 1 [facility] (NORVASC) 5 -08 15- tablet (5 st mg tablet 00:00: 00:00 mg total) [facility] 00 :00 by mouth l daily. naproxen 2-0 2022- No 500mg Q.5D Take 1 [facility] (Naprosyn) 3-30 05-[address] 500 MG 00:00: 00:00 (500 mg Hospita tablet 00 :00 total) by l mouth 2 (two) times a day with meals. naproxen 2-0 2022- No 500mg Q.5D Take 1 [facility] (Naprosyn) 3-30 05-[address] 500 MG 00:00: 00:00 (500 mg [facility]ospita tablet 00 :00 total) by l mouth 2 (two) times a day with meals. naproxen 2-0 2022- No 500mg Q.5D Take 1 [facility] (Naprosyn) 3-30 05-[address] 500 MG 00:00: 00:00 (500 mg [facility]ospita tablet 00 :00 total) by l mouth 2 (two) times a day with meals. naproxen 2-0 2022- No 500mg Q.5D Take 1 [facility] [...] for up to 30 days. benzonatate 2021-0 2022- No 100mg Q8H Take 1 [facility] (TESSALON) 3-31 07-[address] 100 MG 00:00: 04:59 (100 mg Hospita capsule 00 :00 total) by l mouth every 8 (eight) hours for 30 days. ibuprofen 2021-0 2022- No 800mg Q6H Take 1 [facility] (ADVIL) 800 -31 07-[address] MG tablet 00:00: 04:59 (800 mg [facility] 00 :00 total) by l mouth every 6 (six) hours as needed for mild pain for up to 30 days. benzonatate 2021-0 2022- No 100mg Q8H Take 1 Me [...] pain for up to 30 days. benzonatate 2022-0 2022- No 100mg Q8H Take 1 [facility] (TESSALON) 3-31 07-[address] 100 MG 00:00: 04:59 (100 mg Hospita capsule 00 :00 total) by l mouth every 8 (eight) hours for 30 days. ibuprofen 2021-0 2022- No 800mg Q6H Take 1 [facility] (ADVIL) 800 3-31 07-[address] MG tablet 00:00: 04:59 (800 mg [facility] 00 :00 total) by l mouth every 6 (six) hours as needed for mild pain for up to 30 days. benzonatate 2021- No 100mg Q8H Take 1 [facility] (TESSALON) 06-[address] 100 MG 00:00: 04:59 (100 mg [facility]ospita capsule 00 :00 total) by l mouth every 8 (eight) hours for 30 days. amoxicillin 2021- No [id number] 500mg Q.5D Take 1 [facility] (AMOXIL) 06-[address] 500 MG 00:00: 04:59 (500 mg Hospita tablet 00 :00 total) by l mouth in the morning and 1 tablet (500 mg total) before bedtime. Do all this for 7 days. amoxicillin 2021- No [id number] 500mg Q.5D Take 1 [facility] (AMOXIL) 06-[address] 500 MG 00:00: 04:59 (500 mg [facility]ospita tablet 00 :00 total) by l mouth in the morning and 1 tablet (500 mg total) before bedtime. Do all this for 7 days. amoxicillin 2021- No [id number] 500mg Q.5D Take 1 [facility] (AMOXIL) 06-[address] 500 MG 00:00: 04:59 (500 mg [facility]ospita tablet 00 :00 total) by l mouth in the morning and 1 tablet (500 mg total) before bedtime. Do all this for 7 days. amoxicillin 2021- No [id number] 500mg Q.5D Take 1 [facility] (AMOXIL) 06-18 [...] 500mg Q.5D Take 1 [facility] (Naprosyn) 06-03- tablet st 500 MG 00:00: 00:00 (500 [...] (two) times a day with meals. amLODIPine 2021-0 2022- No [facility] (NORVASC) 2-03 04-05 st 2.5 mg 00:00: 00:00 Hospita tablet 00 :00 l amLODIPine 2022-0 2022- No [facility] (NORVASC) 2- 04-05 st 2.5 mg 00:00: 00:00 Hospita tablet 00 :00 l amLODIPine 2-0 2022- No [facility] (NORVASC) 2-03 04-05 st 2.5 mg 00:00: 00:00 Hospita tablet 00 :00 l amLODIPine 2-0 2022- No [facility] (NORVASC) 2-03 04-05 st 2.5 mg 00:00: 00:00 Hospita tablet 00 :00 l HYDROcodone 2021-0 2021- [place] [id number] 1{tbl} Q6H Take 1 [facility] -acetaminop 05-[address] [employer]) 00:00: 05:59 mouth [facility] 5-325 mg 00 :00 every 6 l per tablet (six) hours as needed for moderate pain for up to 5 days .acute pain. Max Daily Amount: 4 tablets HYDROcodone 2-0 2021- No [id number] 1{tbl} Q6H Take 1 [facility] -acetaminop 05-[address] [facility] ([facility]) 00:00: 05:59 mouth [facility] 5-325 mg 00 :00 every 6 l per tablet (six) hours as needed for moderate pain for up to 5 days .acute pain. Max Daily Amount: 4 tablets HYDROcodone 1{tbl} Q6H Take 1 [facility] -acetaminop 05-[address] hen (NASSAWADOX) 00:00: 05:59 mouth [facility] 5-325 mg 00 :00 every 6 l per tablet (six) hours as needed for moderate pain for up to 5 days .acute pain. Max Daily Amount: 4 tablets HYDROcodone 1{tbl} Q6H Take 1 [facility] -acetaminop 05-[address] hen (NASSAWADOX) 00:00: 05:59 mouth [facility] 5-325 mg 00 :00 every 6 l per tablet (six) hours as needed for moderate pain for up to 5 days .acute pain. Max Daily Amount: 4 tablets acetaminoph 1{tbl} Q6H Take 1-2 [facility] en-codeine 05-[address] (TYLENOL 00:00: 00:00 mouth [facility]ospita WITH 00 :00 every 6 l CODEINE #3) (six) 300-30 mg hours as per tablet needed for moderate pain for up to 15 days .acute pain. acetaminoph 1{tbl} Q6H Take 1-2 [facility] en-codeine 05-[address] (TYLENOL 00:00: 00:00 mouth [facility]ospita WITH 00 :00 every 6 l CODEINE #3) (six) 300-30 mg hours as per tablet needed for moderate pain for up to 15 days .acute pain. acetaminoph 1{tbl} Q6H Take 1-2 [facility] en-codeine 05-[address] (TYLENOL 00:00: 00:00 mouth [facility]ospita WITH 00 :00 every 6 l CODEINE #3) (six) 300-30 mg hours as per tablet needed for moderate pain for up to 15 days .acute pain. acetaminoph 1{tbl} Q6H Take 1-2 [facility] en-codeine 05-[address] (TYLENOL 00:00: 00:00 mouth [facility]ospita WITH 00 :00 every 6 l CODEINE #3) (six) 300-30 mg hours as per tablet needed for moderate pain for up to 15 days .acute pain. predniSONE 2021-0 2021- No 2 PO Method [...] times 5 days. All with food. ibuprofen 2021-0 2021- No 600mg Q6H Take 1 [facility] (ADVIL) 600 04-12-[address] MG tablet 00:00: 00:00 (600 mg [facility] 00 :00 total) by l mouth every 6 (six) hours as needed for mild pain for up to 30 doses. ibuprofen 2021-0 2021- No 600mg Q6H Take 1 [facility] (ADVIL) 600 04-12-[address] MG tablet 00:00: 00:00 (600 mg [facility] 00 :00 total) by l mouth every 6 (six) hours as needed for mild pain for up to 30 doses. ibuprofen 2021-0 2021- No 600mg Q6H Take 1 [facility] (ADVIL) 600 04-12-[address] MG tablet 00:00: 00:00 (600 mg [facility] 00 :00 total) by l mouth every 6 (six) hours as needed for mild pain for up to 30 doses. ibuprofen 2021-0 2- No 600mg Q6H Take 1 [facility] (ADVIL) 600 1-01 03-[address] MG tablet 00:00: 00:00 (600 [...] 5 days .acute pain. traMADoL 2021- No [id number] 50mg Q6H Take 1 [facility] (ULTRAM) 50 04-12 tablet (50 s t mg tablet 00:00: 00:00 mg total) [facility] 00 :00 by mouth l every 6 (six) hours as needed for moderate pain for up to 5 [place] [id number] 50mg Q6H Take 1 [facility] (ULTRAM) [...] :00 total) by l mouth daily. pantoprazol 2020-04- No 40mg QD Take 1 [facility] [...] as needed for Itching or Anxiety. hydrOXYzine 2020- Yes Anxiety 10mg Take 1 H arris (ATARAX) 10 0-26 tablet by [facility] lth mg tablet 00:00: mouth 3 00 times daily as needed for Itching or Anxiety. baclofen 2019-0 Yes Neck pain 10mg Take 1 Maria rris (LIORESAL) 9-24 tablet by [facility] 10 mg 00:00: mouth 2 tablet 00 times daily as needed (muscle spasms) STOP cyclobenza kasia (FLEXERIL) 10 mg tablet. baclofen 2019-0 Yes Neck pain 10mg Take 1 Maria rris (LIORESAL) 9-24 tablet by [facility] 10 mg 00:00: mouth 2 tablet 00 times daily as needed (muscle spasms) STOP cyclobenza kasia (FLEXERIL) 10 mg tablet. baclofen 2019-0 Yes Neck pain 10mg Take 1 Maria rris (LIORESAL) 9-24 tablet by [facility] 10 mg 00:00: mouth 2 tablet 00 times daily as needed (muscle spasms) STOP cyclobenza kasia (FLEXERIL) 10 mg tablet. baclofen 2019-0 Yes Neck pain 10mg Take 1 [facility] (LIORESAL) 9-24 tablet by [facility] 10 mg 00:00: mouth 2 tablet 00 times daily as needed (muscle spasms) STOP cyclobenza kasia (FLEXERIL) 10 mg tablet. amitriptyli 2020-0 Yes Neck pain 25mg Take 1 [facility]ood ne (ELAVIL) 9-03 tablet by a lt 25 mg 00:00: mouth at tablet 00 bedtime nightly. amitriptyli 2020-0 Yes Neck pain 25mg Take 1 [facility] ne (ELAVIL) 9-03 tablet by a lth 25 mg 00:00: mouth at tablet 00 bedtime nightly. amitriptyli 2020-0 Yes Neck pain 25mg Take 1 [facility]ood ne (ELAVIL) 9-03 tablet by a lth 25 mg 00:00: mouth at tablet 00 bedtime nightly. amitriptyli 2020-0 Yes Neck pain 25mg Take 1 [facility]ood ne (ELAVIL) 9-03 tablet by a lt 25 mg 00:00: mouth at tablet 00 bedtime nightly. varenicline 2020-0 Yes Encounter Start Mahmood (CHANTIX) 09-11 for smoking taking H ealth 0.5 mg 00:00: cessation this tablet 00 counseling medication 1 week prior to setting a quit date for smoking. Stop smoking on day 8.Days 1 to 3: take 1 tablet once dailyDays 4 to 7: take 1 tablet twice daily. varenicline 2020-0 Yes Encounter Start Timoteo (CHANTIX) 1 09-11 [...] 7: take 1 tablet twice daily. varenicline 2020-0 Yes Encounter Start Timoteo (CHANTIX) 1 09-11 [...] 7: take 1 tablet twice daily. varenicline 2020-0 Yes Encounter Start Timoteo (CHANTIX) 1 09-11 [...] 7: take 1 tablet twice daily. varenicline 2020-0 Yes Encounter Start Timoteo (CHANTIX) 1 09-11 for smoking taking Health mg tablet 00:00: cessation this 00 counseling medication on day 8. Take 1 tablet by mouth 2 times daily.. gabapentin 2020-0 Yes Neck pain 300mg Take 1 [facility] (NEURONTIN) 5-15 capsule by He alth 300 mg 00:00: mouth 3 capsule 00 times daily. gabapentin 2020-0 Yes Neck pain 300mg Take 1 [facility] (NEURONTIN) 5-15 capsule by He alth 300 mg 00:00: mouth 3 capsule 00 times daily. gabapentin 2020-0 Yes Neck pain 300mg Take 1 [facility]ood (NEURONTIN) 5-15 capsule by He alth 300 mg 00:00: mouth 3 capsule 00 times daily. gabapentin 2020-0 Yes Neck pain 300mg Take 1 Mahmood [...] 1 Tom ris (MOTRIN) 4-13 tablet by [facility] 600 mg 00:00: mouth tablet 00 every 8 hours as needed for Pain. ibuprofen 2020-0 Yes Caries 600mg Take 1 Tom ris (MOTRIN) 4-13 tablet by Health 600 mg 00:00: mouth tablet 00 every 8 hours as needed for Pain. MULTIVITAMI 2019-0 Yes Take by [facility] ris N (DAILY 9-24 mouth. Health VITAMIN OR) 08:09: 11 sulfamethox 2019-0 Yes 1{tbl} Q.5D Take 1 Maria rris azole-trime 9-24 tablet by [facility] thoprim 08:09: mouth 2 (BACTRIM 11 times DS) 800-160 daily. mg per tablet MULTIVITAMI 2019-0 Yes Take by [facility] ris N (DAILY 9-24 mouth. Health VITAMIN OR) 08:09: 11 sulfamethox 2019-0 Yes 1{tbl} Q.5D Take 1 [facility] rris azole-trime 9-24 tablet by [facility] thoprim 08:09: mouth 2 (BACTRIM 11 times DS) 800-160 daily. mg per tablet MULTIVITAMI 2019-0 Yes Take by [facility] ris N (DAILY 9-24 mouth. Health VITAMIN OR) 08:09: 11 sulfamethox 2019-0 Yes 1{tbl} Q.5D Take 1 [facility] rris azole-trime 9-24 tablet by [facility] thoprim 08:09: mouth 2 (BACTRIM 11 times DS) 800-160 daily. mg per tablet MULTIVITAMI 2018-0 Yes Take by Tom ris N (DAILY 9-24 mouth. Health VITAMIN OR) 08:09: 11 sulfamethox 2018-0 Yes 1{tbl} Q.5D Take 1 [facility] rris azole-trime 9-24 tablet by [facility] thoprim 08:09: mouth 2 (BACTRIM 11 times DS) 800-160 daily. mg per tablet conjugated 2014- Yes Vaginal .5g Insert 0.5 [facility]ood estrogens 8-03 dryness g Health (PREMARIN) 00:00: vaginally 0.625 00 2 times mg/gram weekly. vaginal cream conjugated 2014-0 Yes Vaginal .5g Insert 0.5 [facility] estrogens 8-03 dryness g Health (PREMARIN) 00:00: vaginally 0.625 00 2 times mg/gram weekly. vaginal cream conjugated 2014-0 Yes Vaginal .5g Insert 0.5 [facility] estrogens 8-03 dryness g Health (PREMARIN) 00:00: vaginally 0.625 00 2 times mg/gram weekly. vaginal cream conjugated 2014-0 Yes Vaginal .5g Insert 0.5 [facility] estrogens 8-03 dryness g Health (PREMARIN) 00:00: vaginally 0.625 00 2 times mg/gram weekly. vaginal cream silver 2014-0 Yes Desquamated Apply Tom ris [...] QUAD PF 2021-02-[address] 00:00:00 [facility] FLUCELVAX QUAD PF 2021-02-[address] 00:00:00 [facility] FLUCELVAX QUAD PF 2021-02-[address] 00:00:00 [facility] FLUCELVAX QUAD PF 2021-02-[address] 00:00:00 [facility] PFIZER COVID-19 MRNA 2020-08-05 Completed [facility] VACCINATION 00:00:00 [facility] PFIZER COVID-19 MRNA 2020-08-05 Completed [facility] VACCINATION 00:00:00 [facility] PFIZER COVID-19 MRNA 2020-08-05 Completed [facility] VACCINATION 00:00:00 [facility] PFIZER COVID-19 MRNA 2020-08-05 Completed [facility] VACCINATION 00:00:00 [facility] PFIZER COVID-19 MRNA 2020-07-08 Completed [facility] VACCINATION 00:00:00 [facility] PFIZER COVID-19 MRNA 2020-07-08 Completed [facility] VACCINATION 00:00:00 [facility] PFIZER COVID-19 MRNA 2020-07-08 Completed [facility] VACCINATION 00:00:00 [facility] PFIZER COVID-19 MRNA 2020-07-08 Completed [facility] VACCINATION 00:00:00 [facility] Influenza, 2020-03-12 Completed [facility] Vaccine<FLUCELVAX>(M 00:00:00 ulti-Dose) Tdap (Tetanus 2020-03-12 Completed [facility] Toxoid, Reduced 00:00:00 Diphtheria Toxoid And Acellular Pertussis, Absorbed) Influenza, 2020-03-12 Completed [facility] Vaccine<FLUCELVAX>(M 00:00:00 ulti-Dose) Tdap (Tetanus 2020-03-12 Completed [facility] Toxoid, Reduced 00:00:00 Diphtheria Toxoid And Acellular Pertussis, Absorbed) Influenza, 2020-03-12 Completed [facility] Vaccine<FLUCELVAX>(M 00:00:00 ulti-Dose) Tdap (Tetanus 2020-03-12 Completed [facility] Toxoid, Reduced 00:00:00 Diphtheria Toxoid And Acellular Pertussis, Absorbed) Influenza, 2020-03-12 Completed [facility] Vaccine<FLUCELVAX>(M 00:00:00 ulti-Dose) Tdap (Tetanus 2020-03-12 Completed [facility] Toxoid, Reduced 00:00:00 Diphtheria Toxoid And Acellular Pertussis, Absorbed) Vital Signs Vital Name Observation Time Observation Value Comments Source Systolic blood 2022-02-20 01:13:29 129 mm[Hg] [facility] pressure Diastolic blood 2022-02-20 01:13:29 67 mm[Hg] [facility] pressure Heart rate 2022-02-20 01:13:29 60 /min [facility] Respiratory rate 2022-02-20 01:13:29 18 /min [facility] Oxygen saturation in 2022-02-20 01:13:29 96 /min Arterial blood by Pulse oximetry Body height 2022-02-19 20:30:00 162.6 cm [facility] Body weight 2022-02-19 20:30:00 79.379 kg [facility] BMI 2022-02-19 20:30:00 30.04 kg/m2 [facility] Body temperature 2022-02-19 20:29:09 36.61 Nydia [facility] pulse rate 2021-12-16 13:21:49 87 /min [facility] blood pressure, 2021-12-16 13:21:49 67 mm[Hg] [facility] diastolic Health blood pressure, 2021-12-16 13:21:49 132 mm[Hg] [facility] pulse rate 2020-11-25 14:31:56 70 /min [facility] blood pressure, 2020-11-25 14:31:56 74 mm[Hg] [facility] diastolic Health blood pressure, 2020-11-25 14:31:56 113 mm[Hg] [facility] systolic Health pulse rate 2020-11-25 13:39:38 70 /min [facility] Health blood pressure, 2020-11-25 13:39:38 74 mm[Hg] [facility] diastolic Health blood pressure, 2020-11-25 13:39:38 113 mm[Hg] [facility] systolic Health Procedures Procedure Date / Time Performing Source Performed Clinician CT CHEST WO CONTRAST ABDOMEN WO 2022-02-20 Cristóbal Ovalle CONTRAST PELVIS WO CONTRAST 01:47:08 [facility] ECG ED PRELIMINARY INTERPRETATION 2022-02-20 Cristóbal Ovalle 01:34:30 [facility] HC COMPLETE BLD COUNT W/AUTO DIFF 2022-02-19 Eulalio Manning 21:40:00 [facility] COMPREHENSIVE METABOLIC PANEL 2022-02-19 Alee Manning [facility] 21:40:00 Hospital HCG QUALITATIVE, SERUM SCREEN 2022-02-19 Alee Manning [facility] 21:40:00 [facility] ESTIMATED GFR 2022-02-19 Alee Manning 21:40:00 [facility] ECG 12-LEAD 2022-02-19 Alee Manningist 20:46:22 Hospital URINE CULTURE 2022-02-19 Alee Manning 20:34:00 [facility] URINALYSIS SCREEN AND MICROSCOPY, 2022-02-19 Eulalio Manningist WITH REFLEX TO CULTURE 20:34:00 Hospital HEPATITIS B SURFACE ANTIGEN 2022-02-05 Eddie Farris [facility] 15:30:00 Hospital HEPATITIS C ANTIBODY 2022-02-05 Eddie Farris 15:30:00 Hospital HIV 1/2 ANTIGEN/ANTIBODY, FOURTH 2022-02-05 Eddie Farrisist GENERATION, WITH REFLEXES 15:30:00 Hospit al HSV TYPE 1/2 COMBINED AB, IGM 2022-02-05 Eddie Farris [facility] 15:30:00 Hospital RPR WITH REFLEX TO TITER 2022-02-[address] 15:30:00 [facility] HEPATITIS C VIRUS (HCV), 2022-02-05 Eddie Farris QUANTITATIVE PCR 15:30:00 [facility] SURGICAL PATHOLOGY REQUEST 2021-12-26 Esthela Small [facility] 18:06:00 Hospital COLONOSCOPY 2021-12-26 Esthela Small [employer] 15:44:00 [facility] ESOPHAGOGASTRODUODENOSCOPY (EGD) 2021-12-26 Esthela Small [employer] 15:44:00 [facility] COVID-19 QUALITATIVE RT-PCR 2021-12-24 Esthela Small ethodist 12:41:00 [facility] THINPREP TIS AND HPV MRNA E6/E7 2021-12-18 Eddie Farris 18:34:00 [facility] ECG 12-LEAD 2021-11-28 VejKeith arzola 15:26:34 [facility] TROPONIN T 2021-11-07 Zeyad Cohen 20:01:00 [facility] COVID-19 QUALITATIVE RT-PCR 2021-11-07 Zeyad Cohen 19:09:00 [facility] COVID-19 OMICRON VARIANT 2021-11-[address] QUALITATIVE RT-PCR 19:09:00 [facility] XR CHEST 2 VW 2021-11-07 Zeyad Cohen 18:51:38 [facility] ECG ED PRELIMINARY INTERPRETATION 2021-11-07 Karo Cohen 18:50:27 [facility] COMPREHENSIVE METABOLIC PANEL 2021-11-07 Zeyad Cohenodist 18:03:00 [facility] TROPONIN T 2021-11-07 Zeyad Cohen 18:03:00 [facility] HC COMPLETE BLD COUNT W/AUTO DIFF 2021-11-07 Karo Cohen 18:03:00 [facility] HCG QUALITATIVE, SERUM SCREEN 2021-11-07 Zeyad Cohen [facility] 18:03:00 [facility] ESTIMATED GFR 2021-11-07 Noel Zeyad Alvarezist 18:03:00 [facility] ECG 12-LEAD 2021-11-07 Liborio Herrera [facility] 17:57:16 Hospital FL UGI W OR WO KUB 2021-11-03 Esthela Small [facility] 15:16:30 Hospital HEPATITIS C VIRUS (HCV), 2021-11-03 Esthela Small [facility] QUANTITATIVE PCR 13:52:00 Hospital HEPATIC FUNCTION PANEL 2021-11-03 Esthela Small [facility] 13:52:00 Hospital XR CHEST 2 VW 2021-10-15 AdryJosé collier H [facility] 02:52:42 Hospital COMPREHENSIVE METABOLIC PANEL 2021-10-15 Mario Maher thodist 01:15:00 [facility] TROPONIN T 2021-10-15 Mario Maher 01:15:00 [facility] B NATRIURETIC PEPTIDE 2021-10-15 Mario Maher 01:15:00 [facility] HC COMPLETE BLD COUNT W/AUTO DIFF 2021-10-15 Mario Maher 01:15:00 [facility] PROTHROMBIN TIME WITH INR 2021-10-15 Mario Maher ist 01:15:00 [facility] PARTIAL THROMBOPLASTIN TIME (PTT) 2021-10-15 Mario Maher 01:15:00 [facility] ESTIMATED GFR 2021-10-15 Mario Maher 01:15:00 [facility] ECG 12-LEAD 2021-10-15 Mario Maher 00:33:[address] [facility] [address] ANGIOGRAM PE CHEST 2021-10-12 Trung Courtney 17:55:52 Hospital HC COMPLETE BLD COUNT W/AUTO DIFF 2021-10-12 Trung Courtney 15:36:00 Hospital COMPREHENSIVE METABOLIC PANEL 2021-10-12 Trung Courtneyodist 15:36:00 Hospital TROPONIN T 2021-10-12 Trung Courtney 15:36:00 Hospital B NATRIURETIC PEPTIDE 2021-10-12 Trung Courtney 15:36:00 Hospital CREATINE KINASE, TOTAL (CPK) 2021-10-12 Trung Courtney Ok thodist 15:36:00 Hospital ESTIMATED GFR 2021-10-12 Trung Courtney 15:36:00 Hospital ECG ED PRELIMINARY INTERPRETATION 2021-10-12 Trung Courtney 15:20:39 Hospital URINE CULTURE 2021-10-12 Rajinder Ordoñez 15:17:00 [facility] URINALYSIS SCREEN AND MICROSCOPY, 2021-10-12 Arslan Ordoñez WITH REFLEX TO CULTURE 15:17:00 [facility] HCG QUALITATIVE, URINE SCREEN 2021-10-12 Rajinder Ordoñez 15:17:00 [facility] ECG 12-LEAD 2021-10-12 Rajinder Ordoñez 14:48:50 [facility] W[place] AN ELECTIVE SUPRAGLOTTIC AIRWAY 2021-09-30 Ruddy Marie 12:10:00 Hospital DECOMPRESSION, ULNAR NERVE 2021-09-30 Rebecca Brownlee 12:06:00 [facility] COVID-19 QUALITATIVE RT-PCR 2021-09-26 Dulce Maria Pierre 14:23:00 [facility] PROTHROMBIN TIME WITH INR 2021-09-26 Antonio Pierre ist 14:23:00 [facility] PARTIAL THROMBOPLASTIN TIME (PTT) 2021-09-26 Keith Pierre 14:23:00 [facility] COMPREHENSIVE METABOLIC PANEL 2021-09-26 Me Gabby thodist 14:23:00 [facility] ESTIMATED GFR 2021-09-26 Rebecca Brownlee 14:23:00 [facility] HEMOGLOBIN A1C 2021-09-26 Rbeecca Brownlee 14:23:00 [facility] CBC WITH PLATELET AND DIFFERENTIAL 2021-09-19 Lexie Esparza 07:10:00 Hospital THYROID STIMULATING HORMONE 2021-09-19 Peggy Esparza 07:10:00 Hospital XR ELBOW 3+ VW LEFT 2021-09-10 Rebecca Brownlee 15:28:27 [facility] CT ANGIOGRAM NECK W WO CONTRAST 2021-08-27 Brenda Retana 00:01:04 [facility] CT ANGIOGRAM HEAD W WO CONTRAST 2021-08-27 Brenda Retana 00:00:50 [facility] CT HEAD WO CONTRAST 2021-08-26 Brenda Retana 23:42:36 [facility] ECG ED PRELIMINARY INTERPRETATION 2021-08-26 Brenda Retana 23:22:45 [facility] HC COMPLETE BLD COUNT W/AUTO DIFF 2021-08-26 Brenda Retana 21:57:00 [facility] COMPREHENSIVE METABOLIC PANEL 2021-08-26 Brenda Retana Me thodist 21:57:00 [facility] TROPONIN T 2021-08-26 Brenda Retana 21:57:00 [facility] B NATRIURETIC PEPTIDE 2021-08-26 Peter Retanayssa Parker 21:57:00 [facility] HCG QUALITATIVE, SERUM SCREEN 2021-08-26 Brenda Retana Me thodist 21:57:00 [facility] ESTIMATED GFR 2021-08-26 Brenda Retana 21:57:00 [facility] ECG 12-LEAD 2021-08-26 Brenda Retana 21:42:16 [facility] URINE CULTURE 2021-08-06 Myles Martin 22:27:00 [facility] URINALYSIS SCREEN AND MICROSCOPY, 2021-08-06 Myles Martin Si WITH REFLEX TO CULTURE 22:27:00 [facility] XR CHEST 2 VW 2021-08-06 Myles Martin 20:36:00 [facility] INFLUENZA ANTIGEN 2021-08-06 Susie Melton 20:10:00 [facility] RESPIRATORY PATHOGEN PANEL WITH 2021-08-06 Susie Melton COVID-19 RT-PCR 20:10:00 [facility] ECG ED PRELIMINARY INTERPRETATION 2021-08-06 Myles Martin Si 20:08:02 [facility] COMPREHENSIVE METABOLIC PANEL 2021-08-06 Susie Melton thodist 20:05:00 [facility] HC COMPLETE BLD COUNT W/AUTO DIFF 2021-08-06 Aamir Melton 20:05:00 [facility] TROPONIN T 2021-08-06 Susie Melton 20:05:00 [facility] LIPASE LEVEL 2021-08-06 Susie Melton [employer]ism 20:05:00 [facility] ESTIMATED GFR 2021-08-06 Susie Melton [employer]ism 20:05:00 [facility] ECG 12-LEAD 2021-08-06 Susie Melton [employer]ism 19:55:29 [facility] TROPONIN T 2021-08-01 Peter Retanayssa [employer]ism 03:32:00 [facility] ECG ED PRELIMINARY INTERPRETATION 2021-08-01 Nelson Villagran Aram william [facility] 02:37:45 Hospital HC COMPLETE BLD COUNT W/AUTO DIFF 2021-08-01 Brenda Retana [employer] 00:35:00 [facility] COMPREHENSIVE METABOLIC PANEL 2021-08-01 Brenda Retana thodist 00:35:00 [facility] TROPONIN T 2021-08-01 Brenda Retana Mormonism 00:35:00 [facility] B NATRIURETIC PEPTIDE 2021-08-01 Brenda Retana [employer]ism 00:35:00 [facility] ESTIMATED GFR 2021-08-01 Brenda Retana [employer]ism 00:35:00 [facility] ECG 12-LEAD 2021-08-01 Brenda Retana [employer] 00:23:19 [facility] TROPONIN T 2021-07-30 Jaida Sales [facility] 21:35:00 Hospital ECG ED PRELIMINARY INTERPRETATION 2021-07-30 Myles Martin Si [facility] 19:53:48 Hospital XR CHEST 2 VW 2021-07-30 Myles Martin [facility] 19:37:56 Hospital COMPREHENSIVE METABOLIC PANEL 2021-07-30 Jaida Salesist 18:40:00 Hospital HC COMPLETE BLD COUNT W/AUTO DIFF 2021-07-30 Jaida Sales [facility] 18:40:00 Hospital TROPONIN T 2021-07-30 Jaida Sales 18:40:00 Hospital B NATRIURETIC PEPTIDE 2021-07-[address] 18:40:00 Hospital ESTIMATED GFR 2021-07-30 Jaida Sales 18:40:00 Hospital ECG 12-LEAD 2021-07-30 Jaida Sales 18:33:57 Hospital MAMMO BREAST SCREEN TOMOSYNTHESIS 2021-07-28 Shell Vargas [employer]ism BILATERAL 14:20:00 [facility] ECG ED PRELIMINARY INTERPRETATION 2021-07-01 Nelson Villagran nataliia AlvarezMormonism 00:04:28 Hospital TROPONIN T 2021-06-30 Mario Maher 23:09:00 [facility] RESPIRATORY PATHOGEN PANEL WITH 2021-06-30 Mario Maher COVID-19 RT-PCR 21:09:00 [facility] XR CHEST 2 VW 2021-06-30 Mario Maher 20:40:51 [facility] COMPREHENSIVE METABOLIC PANEL 2021-06-30 Mario Maher thodist 20:06:00 [facility] TROPONIN T 2021-06-30 Mario Maher 20:06:00 [facility] B NATRIURETIC PEPTIDE 2021-06-30 Mario Maher 20:06:00 [facility] HC COMPLETE BLD COUNT W/AUTO DIFF 2021-06-30 Mario Maher 20:06:00 [facility] ESTIMATED GFR 2021-06-30 Mario Maher 20:06:00 [facility] ECG 12-LEAD 2021-06-30 Mario Maher 19:54:19 [facility] POC URINALYSIS DIPSTICK 2021-06-16 Eddie Farris 18:20:00 [facility] THINPREP TIS PAP AND HPV MRNA 2021-06-16 Eddie Farris Ok thodist E6/E7 REFLEX HPV 16,18/45 18:17:00 Hospit al URINALYSIS, COMPLETE, WITH REFLEX 2021-06-16 Eddie Farris TO CULTURE 17:55:00 [facility] XR SHOULDER 2+ VW RIGHT 2021-06-02 Roger Ling t 17:52:26 [facility] MRI LUMBAR SPINE WO CONTRAST 2021-05-09 Shell Vargas Met [facility] 18:44:08 [facility] MRI CERVICAL SPINE WO CONTRAST 2021-05-05 Shell Vargas ethodist 14:11:[address] [facility] [address] LUMBAR SPINE WO CONTRAST 2021-05-04 Liborio Herrera Met [facility] 22:36:[address] THORACIC SPINE WO CONTRAST 2021-05-04 Liborio Herrera ethodist 22:35:58 Hospital TROPONIN T 2021-04-13 Candelaria Lui 01:33:00 Hospital XR CHEST 2 VW 2021-04-12 Candelaria Lui 23:31:00 Hospital COMPREHENSIVE METABOLIC PANEL 2021-04-12 Candelaria Lui [...] ED PRELIMINARY INTERPRETATION 2021-04-12 Candelaria Lui 21:47:56 [facility] Plan of Care Planned Activity Planned Date Details Comments Source Future Scheduled 2024-09-11 [facility] 00:00:00 malignant neoplasm of cervix (procedure) [code = 737314413] Future Scheduled 2024-09-11 [facility] 00:00:00 malignant neoplasm of cervix (procedure) [code = 831803240] Future Scheduled 2024-09-11 [facility] 00:00:00 malignant neoplasm of cervix (procedure) [code = 445672512] Future Scheduled 2024-09-11 [facility] 00:00:00 malignant neoplasm of cervix (procedure) [code = 200051104] Future Scheduled 2024-09-11 [facility] 00:00:00 malignant neoplasm of cervix (procedure) [code = 778543462] Future Scheduled 2024-09-11 Screening for [facility] Test 00:00:00 malignant neoplasm of cervix (procedure) [code = 614479944] Future Scheduled 2024-09-11 [facility]ening for [facility] 00:00:00 malignant neoplasm of cervix (procedure) [code = 944847705] Future Scheduled 2024-09-11 [facility]ening for [facility] 00:00:00 malignant neoplasm of cervix (procedure) [code = 123622217] Future Scheduled 2022-04-03 HEPATITIS B VACCINES Met [facility] Test 09:31:00 (1 of 3 - 3-dose series) [code = HEPATITIS B VACCINES (1 of 3 - 3-dose series)] Future Scheduled 2022-04-03 Pneumococcal Vaccine: [facility] Test 09:31:00 Pediatrics (0 to 5 Years) and At-Risk Patients (6 to 64 Years) (1 - PCV) [code = Pneumococcal Vaccine: Pediatrics (0 to 5 Years) and At-Risk Patients (6 to 64 Years) (1 - PCV)] Future Scheduled 2022-04-[address] [facility] Test 09:31:00 [code = COLONOSCOPY SCREENING] Future Scheduled 2022-04-03 SHINGLES VACCINES (1 Met [facility] Test 09:31:00 of 2) [code = SHINGLES VACCINES (1 of 2)] Future Scheduled 2022-04-03 COVID-19 VACCINE (3 - [facility] Test 09:31:00 Booster for Pfizer series) [code = COVID-19 VACCINE (3 - Booster for Pfizer series)] Future Scheduled 2022-04-03 INFLUENZA VACCINE Method [facility] Test 09:31:00 [code = INFLUENZA VACCINE] Future Scheduled 2022-04-03 BREAST CANCER Test 09:31:00 SCREENING [code = BREAST CANCER SCREENING] Future Scheduled 2022-04-03 Screening for Test 09:31:00 malignant neoplasm of cervix (procedure) [code = 610377868] Future Scheduled 2022-03-05 HEPATITIS B VACCINES Met [facility] Test 00:08:56 (1 of 3 - 3-dose series) [code = HEPATITIS B VACCINES (1 of 3 - 3-dose series)] Future Scheduled 2022-03-05 Pneumococcal Vaccine: [facility] Test 00:08:56 Pediatrics (0 to 5 Years) and At-Risk Patients (6 to 64 Years) (1 - PCV) [code = Pneumococcal Vaccine: Pediatrics (0 to 5 Years) and At-Risk Patients (6 to 64 Years) (1 - PCV)] Future Scheduled 2022-03-[address] [facility] Test 00:08:56 [code = COLONOSCOPY SCREENING] Future Scheduled 2022-03-05 SHINGLES VACCINES (1 Met [facility] Test 00:08:56 of 2) [code = SHINGLES VACCINES (1 of 2)] Future Scheduled 2022-03-05 COVID-19 VACCINE (3 - [facility] Test 00:08:56 Booster for Pfizer series) [code = COVID-19 VACCINE (3 - Booster for Pfizer series)] Future Scheduled 2022-03-[address] [facility] Test 00:08:56 [code = INFLUENZA VACCINE] Future Scheduled 2022-03-05 BREAST CANCER Test 00:08:56 SCREENING [code = BREAST CANCER SCREENING] Future Scheduled 2022-03-05 Screening for Test 00:08:56 malignant neoplasm of cervix (procedure) [code = 514307998] Future Scheduled 2022-03-05 HEPATITIS B VACCINES Met [facility] Test 00:08:56 (1 of 3 - 3-dose series) [code = HEPATITIS B VACCINES (1 of 3 - 3-dose series)] Future Scheduled 2022-03-05 Pneumococcal Vaccine: [facility] Test 00:08:56 Pediatrics (0 to 5 Years) and At-Risk Patients (6 to 64 Years) (1 - PCV) [code = Pneumococcal Vaccine: Pediatrics (0 to 5 Years) and At-Risk Patients (6 to 64 Years) (1 - PCV)] Future Scheduled 2022-03-[address] [facility] Test 00:08:56 [code = COLONOSCOPY SCREENING] Future Scheduled 2022-03-05 SHINGLES VACCINES (1 Met [facility] Test 00:08:56 of 2) [code = SHINGLES VACCINES (1 of 2)] Future Scheduled 2022-03-05 COVID-19 VACCINE (3 - [facility] Test 00:08:56 Booster for Pfizer series) [code = COVID-19 VACCINE (3 - Booster for Pfizer series)] Future Scheduled 2022-03-05 [facility]ACCINE [facility] 00:08:56 [code = INFLUENZA VACCINE] Future Scheduled 2022-03-05 BREAST CANCER Test 00:08:56 SCREENING [code = BREAST CANCER SCREENING] Future Scheduled 2022-03-05 Screening for Test 00:08:56 malignant neoplasm of cervix (procedure) [code = 072725750] Future Scheduled 2022-02-22 HEPATITIS B VACCINES Met [facility] Test 22:17:15 (1 of 3 - 3-dose series) [code = HEPATITIS B VACCINES (1 of 3 - 3-dose series)] Future Scheduled 2022-02-22 Pneumococcal Vaccine: [facility] Test 22:17:15 Pediatrics (0 to 5 Years) and At-Risk Patients (6 to 64 Years) (1 - PCV) [code = Pneumococcal Vaccine: Pediatrics (0 to 5 Years) and At-Risk Patients (6 to 64 Years) (1 - PCV)] Future Scheduled 2022-02-[address] [facility] Test 22:17:15 [code = COLONOSCOPY SCREENING] Future Scheduled 2022-02-22 SHINGLES VACCINES (1 Met [facility] Test 22:17:15 of 2) [code = SHINGLES VACCINES (1 of 2)] Future Scheduled 2022-02-22 COVID-19 VACCINE (3 - [facility] Test 22:17:15 Booster for Pfizer series) [code = COVID-19 VACCINE (3 - Booster for Pfizer series)] Future Scheduled 2022-02-[address] [facility] Test 22:17:15 [code = INFLUENZA VACCINE] Future Scheduled 2022-02-22 BREAST CANCER Test 22:17:15 SCREENING [code = BREAST CANCER SCREENING] Future Scheduled 2022-02-22 Screening for Test 22:17:15 malignant neoplasm of cervix (procedure) [code = 674976782] Future Scheduled 2022-01-10 IMM Influenza Seasonal H [...] malignant neoplasm of colon (procedure) [code = 454165002] Future Scheduled 2019 [facility] 00:00:00 malignant neoplasm of colon (procedure) [code = 743467663] Future Scheduled 2019 [facility] 00:00:00 malignant neoplasm of colon (procedure) [code = 399992991] Future Scheduled 2019 [facility] 00:00:00 malignant neoplasm of colon (procedure) [code = 397947353] Future Scheduled 1975 Imm Pneumococcal 0-64 Maria [...] Dental X-Ray: Full Mouth] Future Scheduled 1969 Dental Oral Exam [code [...] 00:00:00 = Fluoride Varnish] Future Scheduled 1969 Fluoride Varnish [code H [...] Department ID 2022-02-19 2022-02-19 Emergency Vasquez, 1.2.840.1 [id number] [id number] Methodi 18:09:00 20:16:[address] [place] 3.430.2.7 Hosp shai .3.456764 l .8 2022-02-19 2022-02-19 Emergency Vasquez, 1.2.840.1 [id number] 2099 [id number] Methodi 18:09:00 20:16:[address] [place] 3.430.2.7 Hosp shai .3.124884 l .8 2022-02-12 2022-02-12 Orders Lopez, 1.2.840.1 [id number] Methodi 00:00:00 00:00:00 Only Maureen 80608.1.[address] 3.430.2.7 Hospit a .3.197106 l .8 2022-02-12 2022-02-12 Orders Lopez, 1.2.840.1 [id number] 78948 Methodi 00:00:00 00:00:00 Only Maureen 80028.1.[address] 3.430.2.7 Hospit a .3.165639 l .8 2022-02-11 2022-02-11 Orders Lopez, 1.2.840.1 [id number] 21001 88225 Methodi 00:00:00 00:00:00 Only Maureen 11525.1.[address] 3.430.2.7 Hospit a .3.986515 l .8 2022-02-11 2022-02-11 Telephone Prasanth, 1.2.840.1 [id number] 2099 [id number] Methodi 00:00:00 00:00:00 Eddie Franco 25839.1.[address] 3.430.2.7 Hospit a .3.628317 l .8 2022-02-11 2022-02-11 Orders Lopez, 1.2.840.1 [id number] 25635 Methodi 00:00:00 00:00:00 Only Maureen 77975.1.[address] 3.430.2.7 Hospit a .3.216694 l .8 2022-02-11 2022-02-11 Telephone Prasanth, 1.2.840.1 [id number] 2099 [id number] Methodi 00:00:00 00:00:00 Eddie Franco 26790.1.[address] 3.430.2.7 Hospit a .3.521854 l .8 2022-02-09 2022-02-09 Outpatient COH COH PDPFCCG ETQ COH 00:00:00 00:00:00 [id number] 2022-02-09 2022-02-09 Telephone Prasanth, 1.2.840.1 [id number] 2100 [id number] Methodi 00:00:00 00:00:00 Eddie Franco 46169.1.[address] 3.430.2.7 Hospit a .3.538954 l .8 2022-02-09 2022-02-09 Telephone Prasanth, 1.2.840.1 [id number] 2099 [id number] Methodi 00:00:00 00:00:00 Eddie Franco 21705.1.[address] 3.430.2.7 Hospit a .3.324118 l .8 2022-02-05 2022-02-05 Lab Prasanth, 1.2.840.1 [id number] 1395 Methodi 10:50:00 10:55:00 Eddie Franco 77958.1.[address] 3.430.2.7 Hospit a .3.820197 l .8 2022-02-05 2022-02-05 Lab Prasanth, 1.2.840.1 [id number] 8705 Methodi 10:50:00 10:55:00 Eddie OlyChantal 55107.1.[address] 3.430.2.7 Hospit a .3.403376 l .8 2022-02-05 2022-02-05 Office Prasanth, 1.2.840.1 [id number] 6687 Methodi 09:40:00 10:31:06 Visit Eddie OlyChantal 03569.1.[address] 3.430.2.7 Hospit a .3.671137 l .8 2022-02-05 2022-02-05 Office Prasanth, 1.2.840.1 [id number] 6006 Methodi 09:40:00 10:31:06 Visit Eddie OlyChantal 52742.1.[address] 3.430.2.7 Hospit a .3.427395 l .8 2022-02-05 2022-02-05 Travel 1.2.840.1 1.2.782.564 1873 [id number] Methodi 00:00:00 00:00:[address] 3.430.2.7 0.2.7.3.698 Ho spita .3.829169 084.8 l .8 2022-02-05 2022-02-05 Refill Istre, 1.2.840.1 [id number] 8996 Methodi 00:00:00 00:00:[address] [place] 3.430.2.7 Hospi ta .3.936207 l .8 2022-02-05 2022-02-05 Refill Istre, 1.2.840.1 [id number] 8520 Methodi 00:00:00 00:00:[address] [place] 3.430.2.7 Hospi ta .3.875566 l .8 2022-02-05 2022-02-05 Travel 1.2.840.1 1.2.195.318 4573 164497 Methodi 00:00:00 00:00:[address] 3.430.2.7 0.2.7.3.698 Ho spita .3.364899 084.8 l .8 2022-02-03 2022-02-03 Telephone Prasanth, 1.2.840.1 [id number] 2099 [id number] Methodi 00:00:00 00:00:00 Eddie Franco 09559.1.[address] 3.430.2.7 Hospit a .3.134305 l .8 2022-02-03 2022-02-03 Telephone Prasanth, 1.2.840.1 [id number] 2099 [id number] Methodi 00:00:00 00:00:00 Eddie Franco 54487.1.[address] 3.430.2.7 Hospit a .3.153154 l .8 2022-01-01 2022-01-01 Telephone Alessio, 1.2.840.1 [id number] 2100 [id number] Methodi 00:00:00 00:00:[address] 3.430.2.7 Hospit a .3.728099 l .8 2022-01-01 2022-01-01 Telephone Alessio, 1.2.840.1 [id number] 2100 [id number] Methodi 00:00:00 00:00:[address] 3.430.2.7 Hospit a .3.408092 l .8 2021-12-26 2021-12-26 Surgery [facility], 1.2.840.1 [id number] 4725 Methodi 11:00:00 11:45:[address] Hasan 3.430.2.7 Hospit a .3.795301 l .8 2021-12-26 2021-12-26 Surgery [facility], 1.2.840.1 [id number] 1328 Methodi 11:00:00 11:45:[address] Hasan 3.430.2.7 Hospit a .3.346534 l .8 2021-12-26 2021-12-26 [facility], 1.2.840.1 [id number] [id number] 80406 Methodi 10:21:00 11:28:00 Encounter Proctor 27478.1.[address] Hasan 3.430.2.7 Hospit a .3.812560 l .8 2021-12-26 2021-12-26 [facility], 1.2.840.1 [id number] 93348 60047 Methodi 10:21:00 11:28:00 Encounter Proctor 80053.1.[address] Hasan 3.430.2.7 Hospit a .3.922283 l .8 2021-12-26 2021-12-26 Anesthesia Hans Casper 1.2.840.1 [id number] Methodi 10:44:00 11:06:00 Event Edward 68725.1.[address] 3.430.2.7 Hospit a .3.203503 l .8 2021-12-26 2021-12-26 Anesthesia Hans Casper 1.2.840.1 [id number] Methodi 10:44:00 11:06:00 Event Edward 71368.1.[address] 3.430.2.7 Hospit a .3.530289 l .8 2021-12-26 2021-12-26 Travel 1.2.840.1 1.2.564.117 1447 543813 Methodi 00:00:00 00:00:[address] 3.430.2.7 0.2.7.3.698 Ho spita .3.667000 084.8 l .8 2021-12-26 2021-12-26 Travel 1.2.840.1 1.2.712.172 0057 337663 Methodi 00:00:00 00:00:[address] 3.430.2.7 0.2.7.3.698 Ho spita .3.985645 084.8 l .8 2021-12-24 2021-12-24 Lab Small, 1.2.840.1 [id number] 0057 Methodi 08:00:00 08:15:[address] Hasan 3.430.2.7 Hospit a .3.681770 l .8 2021-12-24 2021-12-24 Lab Small, 1.2.840.1 [id number] 6691 Methodi 08:00:00 08:15:[address] Hasan 3.430.2.7 Hospit a .3.554460 l .8 2021-12-24 2021-12-24 Orders Marc, 1.2.840.1 [id number] 1847 Methodi 00:00:00 00:00:00 Only Kortney 19170.1.[address] 3.430.2.7 Hospit a .3.412729 l .8 2021-12-24 2021-12-24 Orders Marc, 1.2.840.1 [id number] 2421 Methodi 00:00:00 00:00:00 Only Kortney 99504.1.[address] 3.430.2.7 Hospit a .3.378851 l .8 2021-12-18 2021-12-18 Office Prasanth, 1.2.840.1 [id number] 4819 Methodi 11:00:00 13:02:01 Visit Eddie Franco 77107.1.[address] 3.430.2.7 Hospit a .3.466030 l .8 2021-12-18 2021-12-18 Office Prasanth, 1.2.840.1 [id number] 2495 Methodi 11:00:00 13:02:01 Visit Eddie Franco 21136.1.[address] 3.430.2.7 Hospit a .3.121720 l .8 2021-12-18 2021-12-18 Travel 1.2.840.1 1.2.293.299 9569 218252 Methodi 00:00:00 00:00:[address] 3.430.2.7 0.2.7.3.698 Ho spita .3.635864 084.8 l .8 2021-12-18 2021-12-18 Travel 1.2.840.1 1.2.834.262 9811 972421 Methodi 00:00:00 00:00:[address] 3.430.2.7 0.2.7.3.698 Ho spita .3.070905 084.8 l .8 2021-12-16 2021-12-16 Office Doug Estevez [facility] Encounter/ Legacy 00:00:00 00:00:00 Visit Joey Serrano Bijan [id number] Replaced By [facility] [id number] [facility] 2021-12-09 2021-12-09 Refill Leggett, 1.2.840.1 [id number] Methodi 00:00:00 00:00:[address] 3.430.2.7 Hospit a .3.220401 l .8 2021-12-09 2021-12-09 Refill Leggett, 1.2.840.1 [id number] 2099 [id number] Methodi 00:00:00 00:00:[address] 3.430.2.7 Hospit a .3.044912 l .8 2021-11-28 2021-11-28 Office Carly, 1.2.840.1 [id number] Methodi 10:15:00 10:52:48 [place] [address].1.[address] 3.430.2.7 Hospit a .3.791172 l .8 2021-11-28 2021-11-28 Office Carly, 1.2.840.1 [id number] 685 [id number] Methodi 10:15:00 10:52:48 [place] [address]146.1.[address] 3.430.2.7 Hospit a .3.426075 l .8 2021-11-28 2021-11-28 Travel 1.2.840.1 1.2.814.014 1592 461558 Methodi 00:00:00 00:00:[address] 3.430.2.7 0.2.7.3.698 Ho spita .3.459886 084.8 l .8 2021-11-28 2021-11-28 Travel 1.2.840.1 1.2.590.446 6950 827460 Methodi 00:00:00 00:00:[address] 3.430.2.7 0.2.7.3.698 Ho spita .3.073185 084.8 l .8 2021-11-17 2021-11-17 Office Fabby, 1.2.840.1 [id number] 670522 1415 Methodi 09:00:00 09:30:00 Visit [place] 33099.1.[address] [place] 3.430.2.7 Hospit a .3.680400 l .8 2021-11-17 2021-11-17 Office Fabby, 1.2.840.1 [id number] 896494 4271 Methodi 09:00:00 09:30:00 Visit [place] [address]45.1.[address] [place] 3.430.2.7 Hospit a .3.013675 l .8 2021-11-17 2021-11-17 Travel 1.2.840.1 1.2.255.623 6336 990384 Methodi 00:00:00 00:00:[address] 3.430.2.7 0.2.7.3.698 Ho spita .3.643062 084.8 l .8 2021-11-17 2021-11-17 Travel 1.2.840.1 1.2.581.941 9505 477264 Methodi 00:00:00 00:00:[address] 3.430.2.7 0.2.7.3.698 Ho spita .3.962931 084.8 l .8 2021-11-14 2021-11-14 Orders Istre, 1.2.840.1 [id number] 284876 0677 Methodi 00:00:00 00:00:00 Only Shell 25527.1.[address] Doe 3.430.2.7 Hospi ta .3.514087 l .8 2021-11-14 2021-11-14 Orders Istre, 1.2.840.1 [id number] 896804 2110 Methodi 00:00:00 00:00:00 Only Shell 04143.1.[address] Doe 3.430.2.7 Hospi ta .3.076992 l .8 2021-11-11 2021-11-11 Telemedici Istre, 1.2.840.1 [id number] 589 1502256 Methodi 10:00:00 10:40:34 ne Shell 14741.1.[address] Doe 3.430.2.7 Hospi ta .3.080625 l .8 2021-11-11 2021-11-11 Telemedici Istre, 1.2.840.1 [id number] 128 [id number] Methodi 10:00:00 10:40:34 ne Shell 60557.1.[address] [place] 3.430.2.7 Hospi ta .3.381113 l .8 2021-11-07 2021-11-07 Emergency Noel, 1.2.840.1 315670260 2099 814695 Methodi 14:04:00 15:46:[address] [place]irsten 3.430.2.7 Hospit a .3.064553 l .8 2021-11-07 2021-11-07 Emergency Noel, 1.2.840.1 [id number] 2099 889146 Methodi 14:04:00 15:46:[address] [place]irsten 3.430.2.7 Hospit a .3.339070 l .8 2021-11-07 2021-11-07 Travel 1.2.840.1 1.2.081.081 0856 695836 Methodi 00:00:00 00:00:[address] 3.430.2.7 0.2.7.3.698 Ho spita .3.044524 084.8 l .8 2021-11-07 2021-11-07 Travel 1.2.840.1 1.2.117.384 2514 005463 Methodi 00:00:00 00:00:[address] 3.430.2.7 0.2.7.3.698 Ho spita .3.747968 084.8 l .8 2021-11-03 2021-11-03 Lab Small, 1.2.840.1 519443468 045750 9252 Methodi 08:25:00 08:30:[address] Hasan 3.430.2.7 Hospit a .3.171172 l .8 2021-11-03 2021-11-03 Lab Staci, 1.2.840.1 [id number] 476777 7176 Methodi 08:25:00 08:30:[address] Hasan 3.430.2.7 Hospit a .3.967784 l .8 2021-11-03 2021-11-03 Telephone Alessio, 1.2.840.1 [id number] 2099 449452 Methodi 00:00:00 00:00:[address] 3.430.2.7 Hospit a .3.989875 l .8 2021-11-03 2021-11-03 Travel 1.2.840.1 1.2.490.301 4617 866222 Methodi 00:00:00 00:00:[address] 3.430.2.7 0.2.7.3.698 Ho spita .3.788007 084.8 l .8 2021-11-03 2021-11-03 Outpatient [facility] [id number] 623 [place] 00:00:00 00:00:00 PROCTOR [address] 2021-11-03 2021-11-03 Telephone Alessio, 1.2.840.1 [id number] 2100 720024 Methodi 00:00:00 00:00:[address] 3.430.2.7 Hospit a .3.985150 l .8 2021-11-03 2021-11-03 Travel 1.2.840.1 1.2.447.882 0471 785932 Methodi 00:00:00 00:00:[address] 3.430.2.7 0.2.7.3.698 Ho spita .3.387112 084.8 l .8 2021-10-29 2021-10-29 Documentat Binta, 1.2.840.1 820282803 [id number] Methodi 00:00:00 00:00:00 ion Amanda 51913.1.[address] 3.430.2.7 Hospit a .3.794928 l .8 2021-10-29 2021-10-29 Prep for Binta, 1.2.840.1 863214313 652 8321153 Methodi 00:00:00 00:00:00 Surgery Amanda 03832.1.[address] 3.430.2.7 Hospit a .3.606729 l .8 2021-10-29 2021-10-29 Telephone Binta, 1.2.840.1 [id number] 21 [id number] Methodi 00:00:00 00:00:[address] 3.430.2.7 Hospit a .3.870595 l .8 2021-10-29 2021-10-29 Travel 1.2.840.1 1.2.068.128 0044 570299 Methodi 00:00:00 00:00:[address] 3.430.2.7 0.2.7.3.698 Ho spita .3.444107 084.8 l .8 2021-10-29 2021-10-29 Documentat Binta, 1.2.840.1 [id number] 2 [id number] Methodi 00:00:00 00:00:00 ion Amanda 74487.1.[address] 3.430.2.7 Hospit a .3.173877 l .8 2021-10-29 2021-10-29 Prep for Binta, 1.2.840.1 808225206 084 6778116 Methodi 00:00:00 00:00:00 Surgery Amanda 53793.1.[address] 3.430.2.7 Hospit a .3.121094 l .8 2021-10-29 2021-10-29 Telephone Binta, 1.2.840.1 [id number] 21 [id number] Methodi 00:00:00 00:00:[address] 3.430.2.7 Hospit a .3.421113 l .8 2021-10-29 2021-10-29 Travel 1.2.840.1 1.2.032.041 4416 123716 Methodi 00:00:00 00:00:[address] 3.430.2.7 0.2.7.3.698 Ho spita .3.157258 084.8 l .8 2021-10-22 2021-10-22 Office Kem, 1.2.840.1 649424116 003 0317980 Methodi 09:40:00 10:17:00 Visit Rebecca Nguyen 62836.1.[address] 3.430.2.7 Hospit a .3.680268 l .8 2021-10-22 2021-10-22 Office Kem, 1.2.840.1 495964723 920 8288784 Methodi 09:40:00 10:17:00 Visit Rebecca Ngyuen 67476.1.[address] 3.430.2.7 Hospit a .3.048315 l .8 2021-10-22 2021-10-22 Travel 1.2.840.1 1.2.852.131 9221 745865 Methodi 00:00:00 00:00:[address] 3.430.2.7 0.2.7.3.698 Ho spita .3.469948 084.8 l .8 2021-10-22 2021-10-22 Travel 1.2.840.1 1.2.401.685 1865 729312 Methodi 00:00:00 00:00:[address] 3.430.2.7 0.2.7.3.698 Ho spita .3.900254 084.8 l .8 2021-10-14 2021-10-15 Emergency Adry, 1.2.840.1 [id number] 642 8293588 Methodi 21:57:00 00:06:00 José H [address]407.1.[address] 3.430.2.7 Hospit a .3.626672 l .8 2021-10-14 2021-10-15 Emergency Adry, 1.2.840.1 537610508 412 5070170 Methodi 21:57:00 00:06:00 José Kody [address]24.1.[address] 3.430.2.7 Hospit a .3.942977 l .8 2021-10-12 2021-10-12 Emergency Courtney, 1.2.840.1 [id number] 2099 583356 Methodi 10:13:00 14:37:[address] 17744.[address] 3.430.2.7 Hospit a .3.734083 l .8 2021-10-12 2021-10-12 Emergency Courtney, 1.2.840.1 936035295 2099 655474 Methodi 10:13:00 14:37:[address]384.1.[address] 3.430.2.7 Hospit a .3.532487 l .8 2021-10-09 2021-10-09 Telephone [facility] 1.2.840.1 [id number] [id number] Methodi 00:00:00 00:00:[address] 3.430.2.7 Hospit a .3.438185 l .8 2021-10-09 2021-10-09 Telephone [facility] 1.2.840.1 540717719 [id number] Methodi 00:00:00 00:00:[address] 3.430.2.7 Hospit a .3.057687 l .8 2021-10-09 2021-10-09 Orders Istre, 1.2.840.1 860477021 710099 3445 Methodi 00:00:00 00:00:00 Only Shell 38698.1.[address] Doe 3.430.2.7 Hospi ta .3.811391 l .8 2021-10-09 2021-10-09 Telephone [facility] 1.2.840.1 [id number] [id number] Methodi 00:00:00 00:00:[address] 3.430.2.7 Hospit a .3.859599 l .8 2021-10-09 2021-10-09 Telephone Juan Carlos Rivers 1.2.840.1 555095014 [id number] Methodi 00:00:00 00:00:[address] 3.430.2.7 Hospit a .3.072356 l .8 2021-10-09 2021-10-09 Orders Alicia, 1.2.840.1 [id number] 308576 9633 Methodi 00:00:00 00:00:00 Only Shell 57917.1.[address] Doe 3.430.2.7 Hospi ta .3.885937 l .8 2021-10-02 2021-10-02 Telephone Lazarus, 1.2.840.1 [id number] 327 0972837 Methodi 00:00:00 00:00:[address] 3.430.2.7 Hospit a .3.492092 l .8 2021-10-02 2021-10-02 Telephone Lazarus, 1.2.840.1 302094676 276 7791663 Methodi 00:00:00 00:00:[address] 3.430.2.7 Hospit a .3.917401 l .8 2021-09-30 2021-09-30 Surgery Kem, 1.2.840.1 754065718 079 1509151 Methodi 07:15:00 09:02:00 Rebecca Nguyen 85033.1.[address] 3.430.2.7 Hospit a .3.538506 l .8 2021-09-30 2021-09-30 Surgery Kem, 1.2.840.1 049289968 060 7793159 Methodi 07:15:00 09:02:00 Rebecca Nguyen 71556.1.[address] 3.430.2.7 Hospit a .3.090947 l .8 2021-09-30 2021-09-30 [facility], 1.2.840.1 [id number] 21 [id number] Methodi 06:02:00 08:50:00 Encounter Rebecca Nguyen 97204.1.[address] 3.430.2.7 Hospit a .3.295218 l .8 2021-09-30 2021-09-30 [facility] Kem 1.2.840.1 [id number] [id number] Methodi 06:02:00 08:50:00 Encounter Rebecca Nguyen 19601.1.[address] 3.430.2.7 Hospit a .3.995096 l .8 2021-09-30 2021-09-30 Anesthesia Lis Tomas W. 1.2.840.1 1045 27249 4199881137 Methodi 07:05:00 08:04:00 Event Sunita Marie 12935.1.[address] 3.430.2.7 Hospit a .3.616001 l .8 2021-09-30 2021-09-30 Anesthesia Twila Tomas W. 1.2.840.1 1045 40185 2489683152 Methodi 07:05:00 08:04:00 Event Sunita Marie 35490.1.[address] 3.430.2.7 Hospit a .3.094227 l .8 2021-09-26 2021-09-26 Outpatient [facility] [place] 2100 309028 [place] 00:00:00 00:00:00 REBECCA Baumann Method i st 2021-09-19 2021-09-19 Travel 1.2.840.1 1.2.433.098 7533 602972 Methodi 00:00:00 00:00:[address] 3.430.2.7 0.2.7.3.698 Ho spita .3.536061 084.8 l .8 2021-09-19 2021-09-19 Orders Janes, 1.2.840.1 [id number] 2099 655035 Methodi 00:00:00 00:00:00 Only Sharon 15073.1.[address] 3.430.2.7 Hospit a .3.306055 l .8 2021-09-19 2021-09-19 Orders Tavares, 1.2.840.1 758939082 061997 4827 Methodi 00:00:00 00:00:00 Only Peggy 09730.1.[address] 3.430.2.7 Hospit a .3.752932 l .8 2021-09-19 2021-09-19 Travel 1.2.840.1 1.2.856.118 8838 564926 Methodi 00:00:00 00:00:[address] 3.430.2.7 0.2.7.3.698 Ho spita .3.239249 084.8 l .8 2021-09-19 2021-09-19 Orders Marrero, 1.2.840.1 [id number] 2099 122566 Methodi 00:00:00 00:00:00 Only Sharon 95466.1.[address] 3.430.2.7 Hospit a .3.334423 l .8 2021-09-19 2021-09-19 Orders Tavares, 1.2.840.1 012562805 387188 9068 Methodi 00:00:00 00:00:00 Only Peggy 04371.1.[address] 3.430.2.7 Hospit a .3.099447 l .8 2021-09-18 2021-09-18 Orders Propes, 1.2.840.1 624517717 875069 4613 Methodi 00:00:00 00:00:00 Only Pina 00855.1.[address] 3.430.2.7 Hospit a .3.713406 l .8 2021-09-18 2021-09-18 Orders Propes, 1.2.840.1 435242141 311856 1576 Methodi 00:00:00 00:00:00 Only Pina 62209.1.[address] 3.430.2.7 Hospit a .3.268220 l .8 2021-09-14 2021-09-14 Orders Tavares, 1.2.840.1 260909801 818558 4729 Methodi 00:00:00 00:00:00 Only Peggy 39629.1.[address] 3.430.2.7 Hospit a .3.813258 l .8 2021-09-14 2021-09-14 Orders Tavares, 1.2.840.1 437341093 468277 2300 Methodi 00:00:00 00:00:00 Only Peggy 87524.1.[address] 3.430.2.7 Hospit a .3.766115 l .8 2021-09-11 2021-09-11 Office Tavares, 1.2.840.1 664515806 685879 9666 Methodi 15:50:00 16:55:49 Visit Peggy 08797.1.[address] 3.430.2.7 Hospit a .3.058352 l .8 2021-09-11 2021-09-11 Office Tavares, 1.2.840.1 227041339 717996 0907 Methodi 15:50:00 16:55:49 Visit Peggy 49719.1.[address] 3.430.2.7 Hospit a .3.521951 l .8 2021-09-11 2021-09-11 Travel 1.2.840.1 1.2.404.836 1824 379022 Methodi 00:00:00 00:00:[address] 3.430.2.7 0.2.7.3.698 Ho spita .3.254424 084.8 l .8 2021-09-11 2021-09-11 Travel 1.2.840.1 1.2.176.103 4993 824798 Methodi 00:00:00 00:00:[address] 3.430.2.7 0.2.7.3.698 Ho spita .3.070703 084.8 l .8 2021-09-10 2021-09-10 Office Kem, 1.2.840.1 907466588 269 8069519 Methodi 10:40:00 11:03:05 Visit Rebecca Nguyen 46396.1.[address] 3.430.2.7 Hospit a .3.536570 l .8 2021-09-10 2021-09-10 Office Kem, 1.2.840.1 447608624 986 8040442 Methodi 10:40:00 11:03:05 Visit Rebecca Nguyen 22352.1.[address] 3.430.2.7 Hospit a .3.515830 l .8 2021-09-10 2021-09-10 Jaclyn Wyatt, 1.2.840.1 870375220 2099 421382 Methodi 00:00:00 00:00:00 Only Jami 75691.1.[address] 3.430.2.7 Hospit a .3.754957 l .8 2021-09-10 2021-09-10 Jaclyn Wyatt, 1.2.840.1 188550808 2099 531885 Methodi 00:00:00 00:00:00 Only Jami 41009.1.[address] 3.430.2.7 Hospit a .3.250590 l .8 2021-09-10 2021-09-10 [facility] 2100 166940 [place] 00:00:00 00:00:00 REBECCA Tran Method i st 2021-08-31 2021-08-31 Refill Istre, 1.2.840.1 170577676 126292 7261 Methodi 00:00:00 00:00:[address] [place] 3.430.2.7 Hospi ta .3.962251 l .8 2021-08-31 2021-08-31 Refill Prasanth, 1.2.840.1 200872463 157224 4859 Methodi 00:00:00 00:00:00 Eddie Franco 43665.1.[address] 3.430.2.7 Hospit a .3.779401 l .8 2021-08-31 2021-08-31 Refill Istre, 1.2.840.1 890331466 612996 3558 Methodi 00:00:00 00:00:[address] [place] 3.430.2.7 Hospi ta .3.409202 l .8 2021-08-31 2021-08-31 Refhilda Farris, 1.2.840.1 005233945 310660 4597 Methodi 00:00:00 00:00:00 Eddie Franco 51642.1.[address] 3.430.2.7 Hospit a .3.613899 l .8 2021-08-29 2021-08-29 Telephone Denisse, 1.2.840.1 901882285 2099 698456 Methodi 00:00:00 00:00:00 Ivy Ray 81376.1.[address] 3.430.2.7 Hospit a .3.059832 l .8 2021-08-29 2021-08-29 Orders Istre, 1.2.840.1 597362729 483292 8293 Methodi 00:00:00 00:00:00 Only Shell 30957.1.[address] [place] 3.430.2.7 Hospi ta .3.863576 l .8 2021-08-29 2021-08-29 Telephone Denisse, 1.2.840.1 237692520 2099 306793 Methodi 00:00:00 00:00:00 Chaptico Ray 01634.1.[address] 3.430.2.7 Hospit a .3.619040 l .8 2021-08-29 2021-08-29 Orders Istre, 1.2.840.1 148244790 352572 1478 Methodi 00:00:00 00:00:00 Only Shell 21739.1.[address] [place] 3.430.2.7 Hospi ta .3.990124 l .8 2021-08-28 2021-08-28 Travel 1.2.840.1 1.2.269.180 1303 149239 Methodi 00:00:00 00:00:[address] 3.430.2.7 0.2.7.3.698 Ho spita .3.293027 084.8 l .8 2021-08-28 2021-08-28 Travel 1.2.840.1 1.2.203.262 1609 080861 Methodi 00:00:00 00:00:[address] 3.430.2.7 0.2.7.3.698 Ho spita .3.760267 084.8 l .8 2021-08-26 2021-08-26 Emergency Mazin, 1.2.840.1 989827567 2099370 Methodi 16:36:00 20:08:[address] Adrienne 3.430.2.7 Hospit a .3.962507 l .8 2021-08-26 2021-08-26 Emergency Mazin, 1.2.840.1 315313838 2099370 Methodi 16:36:00 20:08:[address] Adrienne 3.430.2.7 Hospit a .3.387298 l .8 2021-08-26 2021-08-26 Orders Colmenter, 1.2.840.1 381843293 737 5082594 Methodi 00:00:00 00:00:00 Only Linda 68344.1.[address] 3.430.2.7 Hospit a .3.185971 l .8 2021-08-26 2021-08-26 Orders Colmenter, 1.2.840.1 866860216 444 7148132 Methodi 00:00:00 00:00:00 Only Linda 66211.1.[address] 3.430.2.7 Hospit a .3.391749 l .8 2021-08-21 2021-08-21 Orders Colmenter, 1.2.840.1 856868858 749 9569287 Methodi 00:00:00 00:00:00 Only Linda 99287.1.[address] 3.430.2.7 Hospit a .3.731782 l .8 2021-08-21 2021-08-21 Orders Colmenter, 1.2.840.1 009024224 329 3020506 Methodi 00:00:00 00:00:00 Only Linda 91456.1.[address] 3.430.2.7 Hospit a .3.769564 l .8 2021-08-14 2021-08-14 Office Colmenter, 1.2.840.1 019147685 200 7139613 Methodi 11:00:00 13:05:34 Visit Linda 79039.1.[address] 3.430.2.7 Hospit a .3.516970 l .8 2021-08-14 2021-08-14 Office Colmenter, 1.2.840.1 851877645 722 3273552 Methodi 11:00:00 13:05:34 Visit Linda 10887.1.[address] 3.430.2.7 Hospit a .3.953103 l .8 2021-08-12 2021-08-12 Office Prasanth, 1.2.840.1 390891077 401353 3498 Methodi 10:00:00 11:08:57 Visit Eddie Franco 44023.1.[address] 3.430.2.7 Hospit a .3.430578 l .8 2021-08-12 2021-08-12 Office Prasanth, 1.2.840.1 952973358 717763 1784 Methodi 10:00:00 11:08:57 Visit Eddie Franco 36582.1.[address] 3.430.2.7 Hospit a .3.277300 l .8 2021-08-12 2021-08-12 Travel 1.2.840.1 1.2.345.084 3236 474003 Methodi 00:00:00 00:00:[address] 3.430.2.7 0.2.7.3.698 Ho spita .3.650747 084.8 l .8 2021-08-12 2021-08-12 Travel 1.2.840.1 1.2.561.799 6266 034829 Methodi 00:00:00 00:00:[address] 3.430.2.7 0.2.7.3.698 Ho spita .3.909848 084.8 l .8 2021-08-08 2021-08-08 Emergency EM Lynda, HCAKW SHIRLENE [id number] [facility] 12:48:00 19:41:00 [facility] 2021-08-08 2021-08-08 Emergency EM Lynda, HCAKW SAHRAKW [id number] [facility] 12:48:00 19:41:00 [id number] [facility] 2021-08-08 2021-08-08 Outpatient Lynda, HCACL LABO [id number] 165 [facility] 19:09:00 19:09:00 Di 00 [facility] 2021-08-08 2021-08-08 Transcribe Istre, 1.2.840.1 796837103 890 [id number] Methodi 00:00:00 00:00:00 Orders Shell 61799.1.[address] Doe 3.430.2.7 Hospi ta .3.051725 l .8 2021-08-08 2021-08-08 Transcribe Istre, 1.2.840.1 150740787 062 3909253 Methodi 00:00:00 00:00:00 Orders Shell 18789.1.[address] [place] 3.430.2.7 Hospi ta .3.247127 l .8 2021-08-06 2021-08-06 Emergency Myles Martin 1.2.840.1 964199252 [id number] Methodi 14:54:00 18:50:[address] 3.430.2.7 Hospit a .3.090070 l .8 2021-08-06 2021-08-06 Emergency Myles Martin 1.2.840.1 224966400 7565495179 Methodi 14:54:00 18:50:[address] 3.430.2.7 Hospit a .3.326280 l .8 2021-08-06 2021-08-06 Travel 1.2.840.1 1.2.688.197 4348 485607 Methodi 00:00:00 00:00:[address] 3.430.2.7 0.2.7.3.698 Ho spita .3.388583 084.8 l .8 2021-08-06 2021-08-06 Travel 1.2.840.1 1.2.065.116 4644 314757 Methodi 00:00:00 00:00:[address] 3.430.2.7 0.2.7.3.698 Ho spita .3.837459 084.8 l .8 2021-08-04 2021-08-04 Office Istre, 1.2.840.1 329948662 490101 2138 Methodi 14:20:00 15:33:19 Visit Shell 97432.1.[address] [place] 3.430.2.7 Hospi ta .3.799566 l .8 2021-08-04 2021-08-04 Office Istre, 1.2.840.1 052289723 169834 0874 Methodi 14:20:00 15:33:19 Visit Shell 22691.1.[address] Doe 3.430.2.7 Hospi ta .3.500824 l .8 2021-08-04 2021-08-04 Travel 1.2.840.1 1.2.539.179 7355 366689 Methodi 00:00:00 00:00:[address] 3.430.2.7 0.2.7.3.698 Ho spita .3.159724 084.8 l .8 2021-08-04 2021-08-04 Travel 1.2.840.1 1.2.053.641 4425 498462 Methodi 00:00:00 00:00:[address] 3.430.2.7 0.2.7.3.698 Ho spita .3.484103 084.8 l .8 2021-07-31 2021-07-31 Emergency TyshawnNelson martinez 1.2.840.1 596123076 [id number] Methodi 21:39:00 23:28:[address] 3.430.2.7 Hospit a .3.857123 l .8 2021-07-31 2021-07-31 Emergency Nelson Villagran 1.2.840.1 046479845 [id number] Methodi 21:39:00 23:28:[address] 3.430.2.7 Hospit a .3.810296 l .8 2021-07-31 2021-07-31 Travel 1.2.840.1 1.2.439.374 1085 577810 Methodi 00:00:00 00:00:[address] 3.430.2.7 0.2.7.3.698 Ho spita .3.497197 084.8 l .8 2021-07-31 2021-07-31 Travel 1.2.840.1 1.2.989.060 8153 185696 Methodi 00:00:00 00:00:[address] 3.430.2.7 0.2.7.3.698 Ho spita .3.575777 084.8 l .8 2021-07-30 2021-07-30 Emergency Myles Martin 1.2.840.1 604876085 [id number] Methodi 13:34:00 17:16:[address] 3.430.2.7 Hospit a .3.862114 l .8 2021-07-30 2021-07-30 Emergency Myles Martin 1.2.840.1 921225630 [id number] Methodi 13:34:00 17:16:[address] 3.430.2.7 Hospit a .3.564019 l .8 2021-07-30 2021-07-30 Telephone Alicia, 1.2.840.1 [id number] 2100 266590 Methodi 00:00:00 00:00:[address] Doe 3.430.2.7 Hospi ta .3.095279 l .8 2021-07-30 2021-07-30 Telephone Istre, 1.2.840.1 281171032 2099 489774 Methodi 00:00:00 00:00:[address] Doe 3.430.2.7 Hospi ta .3.371756 l .8 2021-07-28 2021-07-28 [facility] [id number] 879 [place] 00:00:00 00:00:[address] PEGGY [address] 2021-07-24 2021-07-24 Orders Lopez, 1.2.840.1 762145668 68200 Methodi 00:00:00 00:00:00 Only Maureen 14077.1.[address] 3.430.2.7 Hospit a .3.085604 l .8 2021-07-24 2021-07-24 Orders Lopez, 1.2.840.1 751241818 38124 Methodi 00:00:00 00:00:00 Only Maureen 51394.1.[address] 3.430.2.7 Hospit a .3.669772 l .8 2021-07-23 2021-07-23 Orders Istre, 1.2.840.1 172269409 357925 4502 Methodi 00:00:00 00:00:00 Only Shell 23283.1.[address] Doe 3.430.2.7 Hospi ta .3.549983 l .8 2021-07-23 2021-07-23 Orders Istre, 1.2.840.1 888282712 969829 8456 Methodi 00:00:00 00:00:00 Only Shell 81890.1.[address] [place] 3.430.2.7 Hospi ta .3.953042 l .8 2021-07-21 2021-07-21 Orders Istre, 1.2.840.1 425591852 059656 9593 Methodi 00:00:00 00:00:00 Only Shell 18587.1.[address] Doe 3.430.2.7 Hospi ta .3.496302 l .8 2021-07-21 2021-07-21 Orders Alicia, 1.2.840.1 846006780 854502 2807 Methodi 00:00:00 00:00:00 Only Shell 75484.1.[address] Doe 3.430.2.7 Hospi ta .3.729612 l .8 2021-07-15 2021-07-15 Telephone Leggett, 1.2.840.1 700874621 84235794 Methodi 00:00:00 00:00:[address] 3.430.2.7 Hospit a .3.426176 l .8 2021-07-15 2021-07-15 Travel 1.2.840.1 1.2.455.542 8792 197424 Methodi 00:00:00 00:00:[address] 3.430.2.7 0.2.7.3.698 Ho spita .3.045781 084.8 l .8 2021-07-15 2021-07-15 Telephone Leggett, 1.2.840.1 622537114 [id number] Methodi 00:00:00 00:00:[address] 3.430.2.7 Hospit a .3.987173 l .8 2021-07-15 2021-07-15 Travel 1.2.840.1 1.2.093.513 1054 288387 Methodi 00:00:00 00:00:[address] 3.430.2.7 0.2.7.3.698 Ho spita .3.506017 084.8 l .8 2021-07-10 2021-07-10 Treatment Shell Vargasd 1.2.840.1 [id number] Methodi 09:00:00 10:00:00 Peggy Esparza 49309.1.[address] [place], Smooth 3.430.2.7 H ospita .3.315490 l .8 2021-07-10 2021-07-10 Treatment Shell Vargasd 1.2.840.1 [id number] Methodi 09:00:00 10:00:00 Peggy Esparza 91839.1.[address] [place], Smooth 3.430.2.7 H ospita .3.916765 l .8 2021-07-10 2021-07-10 Plan of 1.2.840.1 [id number] 479158 5282 Methodi 00:00:00 00:00:[address] Documentat 3.430.2.7 Hos margie ion .3.507668 l .8 2021-07-10 2021-07-10 Plan of 1.2.840.1 034463896 840613 4956 Methodi 00:00:00 00:00:[address] Documentat 3.430.2.7 Hos margie ion .3.676482 l .8 2021-07-09 2021-07-09 Travel 1.2.840.1 1.2.825.426 9247 483413 Methodi 00:00:00 00:00:[address] 3.430.2.7 0.2.7.3.698 Ho spita .3.282770 084.8 l .8 2021-07-09 2021-07-09 Orders Iscorwin, 1.2.840.1 396930513 240420 9025 Methodi 00:00:00 00:00:00 Only Shell 41621.1.[address] [place] 3.430.2.7 Hospi ta .3.787133 l .8 2021-07-09 2021-07-09 Travel 1.2.840.1 1.2.985.974 5870 908426 Methodi 00:00:00 00:00:[address] 3.430.2.7 0.2.7.3.698 Ho spita .3.767110 084.8 l .8 2021-07-09 2021-07-09 Orders Istre, 1.2.840.1 591010402 920608 0387 Methodi 00:00:00 00:00:00 Only Shell 82093.1.[address] [place] 3.430.2.7 Hospi ta .3.581166 l .8 2021-07-03 2021-07-03 Travel 1.2.840.1 1.2.860.859 1586 450970 Methodi 00:00:00 00:00:[address] 3.430.2.7 0.2.7.3.698 Ho spita .3.103501 084.8 l .8 2021-07-03 2021-07-03 Travel 1.2.840.1 1.2.219.485 9317 306471 Methodi 00:00:00 00:00:[address] 3.430.2.7 0.2.7.3.698 Ho spita .3.743294 084.8 l .8 2021-06-30 2021-06-30 Emergency Tyshawn, Nelson 1.2.840.1 [id number] Methodi 14:43:00 20:06:[address] 3.430.2.7 Hospit a .3.681126 l .8 2021-06-30 2021-06-30 Emergency Tyshawn, Nelson 1.2.840.1 833344290 [id number] Methodi 14:43:00 20:06:[address] 3.430.2.7 Hospit a .3.635108 l .8 2021-06-19 2021-06-19 Orders [place], 1.2.840.1 [id number] 801235 5340 Methodi 00:00:00 00:00:00 Only Susanne 80327.1.[address] 3.430.2.7 Hospit a .3.554663 l .8 2021-06-19 2021-06-19 Orders [place], 1.2.840.1 192489355 618322 9616 Methodi 00:00:00 00:00:00 Only Susanne 12127.1.[address] 3.430.2.7 Hospit a .3.201233 l .8 2021-06-18 2021-06-18 Orders Tran, 1.2.840.1 057989372 051410 1872 Methodi 00:00:00 00:00:00 Only Kortney 90250.1.[address] 3.430.2.7 Hospit a .3.516610 l .8 2021-06-18 2021-06-18 Telephone Jessica, 1.2.840.1 [id number] 645 3918721 Methodi 00:00:00 00:00:[address] 3.430.2.7 Hospit a .3.431713 l .8 2021-06-18 2021-06-18 Orders Marc, 1.2.840.1 [id number] 024819 6260 Methodi 00:00:00 00:00:00 Only Kortney 67496.1.[address] 3.430.2.7 Hospit a .3.694573 l .8 2021-06-18 2021-06-18 Telephone Jessica, 1.2.840.1 [id number] 593 2629097 Methodi 00:00:00 00:00:[address] 3.430.2.7 Hospit a .3.995830 l .8 2021-06-16 2021-06-16 Office Prasanth 1.2.840.1 [id number] 946892 1283 Methodi 11:40:00 13:03:55 Visit Eddie Franco 06143.1.[address] 3.430.2.7 Hospit a .3.070624 l .8 2021-06-16 2021-06-16 Office Prasanth, 1.2.840.1 218780902 888852 2477 Methodi 11:40:00 13:03:55 Visit Eddie Franco 64181.1.[address] 3.430.2.7 Hospit a .3.801675 l .8 2021-06-16 2021-06-16 Travel 1.2.840.1 1.2.567.278 6048 785738 Methodi 00:00:00 00:00:[address] 3.430.2.7 0.2.7.3.698 Ho spita .3.508577 084.8 l .8 2021-06-16 2021-06-16 Travel 1.2.840.1 1.2.004.739 7206 834491 Methodi 00:00:00 00:00:[address] 3.430.2.7 0.2.7.3.698 Ho spita .3.710465 084.8 l .8 2021-06-03 2021-06-03 Refill [place], 1.2.840.1 807491009 285767 9985 Methodi 00:00:00 00:00:[address] 3.430.2.7 Hospit a .3.503873 l .8 2021-06-03 2021-06-03 Telephone Abreu, 1.2.840.1 621328801 2100 [address]24585 Methodi 00:00:00 00:00:[address] 3.430.2.7 Hospit a .3.785429 l .8 2021-06-03 2021-06-03 Refill [place], 1.2.840.1 606692284 269438 4274 Methodi 00:00:00 00:00:[address] 3.430.2.7 Hospit a .3.591523 l .8 2021-06-03 2021-06-03 Telephone Abreu, 1.2.840.1 [id number] 2099 132213 Methodi 00:00:00 00:00:[address] 3.430.2.7 Hospit a .3.147676 l .8 2021-06-02 2021-06-02 Emergency Gunnar, 1.2.840.1 210116502 2 [id number] Methodi 10:56:00 13:23:00 Mario Crook 50203.1.1 [address] 3.430.2.7 Hospit a .3.513570 l .8 2021-06-02 2021-06-02 Emergency [place]ar, 1.2.840.1 095593507 2 [id number] Methodi 10:56:00 13:23:00 Mario Crook 45077.1.1 606 [address] t 3.430.2.7 Hospit a .3.780690 l .8 2021-06-02 2021-06-02 Orders Istre, 1.2.840.1 355363808 321785 2357 Methodi 00:00:00 00:00:00 Only Shell 11593.1.[address] [place] 3.430.2.7 Hospi ta .3.005701 l .8 2021-06-02 2021-06-02 Orders Istre, 1.2.840.1 386516075 247956 8165 Methodi 00:00:00 00:00:00 Only Shell 61231.1.[address] [place] 3.430.2.7 Hospi ta .3.674711 l .8 2021-05-30 2021-05-30 Treatment IstreShellrand 1.2.840.1 876236475 [id number] Methodi 10:00:00 11:00:00 Smooth [place] [address]183.1.[address] 3.430.2.7 Hospit a .3.548913 l .8 2021-05-30 2021-05-30 Treatment IsShell olivia [place] 1.2.840.1 559320255 [id number] Methodi 10:00:00 11:00:00 Smooth [place] [address]504.[address] 3.430.2.7 Hospit a .3.415902 l .8 2021-05-28 2021-05-28 Orders Istre, 1.2.840.1 790813803 274884 0568 Methodi 00:00:00 00:00:00 Only Shell 34824.1.[address] [place] 3.430.2.7 Hospi ta .3.404839 l .8 2021-05-28 2021-05-28 Orders Istre, 1.2.840.1 366516446 407654 1997 Methodi 00:00:00 00:00:00 Only Shell 71972.1.[address] [place] 3.430.2.7 Hospi ta .3.682267 l .8 2021-05-27 2021-05-27 Travel 1.2.840.1 1.2.645.758 3475 704471 Methodi 00:00:00 00:00:[address] 3.430.2.7 0.2.7.3.698 Ho spita .3.477886 084.8 l .8 2021-05-27 2021-05-27 Travel 1.2.840.1 1.2.202.518 5061 660592 Methodi 00:00:00 00:00:[address] 3.430.2.7 0.2.7.3.698 Ho spita .3.060427 084.8 l .8 2021-05-19 2021-05-19 Evaluation Shell Vargasd 1.2.840.1 655276226 [id number] Methodi 11:00:00 12:00:00 Peggy Esparza 49463.1.[address] Smooth [place] 3.430.2.7 H ospita .3.859159 l .8 2021-05-19 2021-05-19 Evaluation Shell Vargasrand 1.2.840.1 300097497 5246254585 Methodi 11:00:00 12:00:00 Peggy Esparza 44615.1.[address] Smooth [place] 3.430.2.7 H ospita .3.100902 l .8 2021-05-19 2021-05-19 Plan of 1.2.840.1 [id number] 6924 Methodi 00:00:00 00:00:[address] Documentat 3.430.2.7 Hos margie ion .3.931015 l .8 2021-05-19 2021-05-19 Travel 1.2.840.1 1.2.470.620 8986 866968 Methodi 00:00:00 00:00:[address] 3.430.2.7 0.2.7.3.698 Ho spita .3.365246 084.8 l .8 2021-05-19 2021-05-19 Plan of 1.2.840.1 [id number] 771695 3955 Methodi 00:00:00 00:00:[address] Documentat 3.430.2.7 Hos margie ion .3.433531 l .8 2021-05-19 2021-05-19 Travel 1.2.840.1 1.2.984.811 4707 772260 Methodi 00:00:00 00:00:[address] 3.430.2.7 0.2.7.3.698 Ho spita .3.507779 084.8 l .8 2021-05-09 2021-05-09 Travel 1.2.840.1 1.2.225.313 6647 265678 Methodi 00:00:00 00:00:[address] 3.430.2.7 0.2.7.3.698 Ho spita .3.312250 084.8 l .8 2021-05-09 2021-05-09 Travel 1.2.840.1 1.2.499.086 5613 045375 Methodi 00:00:00 00:00:[address] 3.430.2.7 0.2.7.3.698 Ho spita .3.755526 084.8 l .8 2021-05-09 2021-05-09 Outpatient TAVARES, [facility] [id number] 977 [place] 00:00:00 00:00:[address] PEGGY [address] 2021-05-06 2021-05-06 Orders Istre, 1.2.840.1 [id number] 794932 9950 Methodi 00:00:00 00:00:00 Only Shell 32052.1.[address] [place] 3.430.2.7 Hospi ta .3.006665 l .8 2021-05-06 2021-05-06 Orders Istre, 1.2.840.1 580011336 645620 4978 Methodi 00:00:00 00:00:00 Only Shell 09701.1.[address] Doe 3.430.2.7 Hospi ta .3.788523 l .8 2021-05-05 2021-05-05 Outpatient TAVARES, [facility] [id number] 738 [place] 00:00:00 00:00:00 PEGGY [address] 2021-05-04 2021-05-04 Emergency Oghogho, 1.2.840.1 [id number] 858 1992608 Methodi 14:39:00 18:56:[address] 3.430.2.7 Hospit a .3.378191 l .8 2021-05-04 2021-05-04 Emergency Oghogho, 1.2.840.1 [id number] 430 0363248 Methodi 14:39:00 18:56:[address] 3.430.2.7 Hospit a .3.328182 l .8 2021-05-04 2021-05-04 Travel 1.2.840.1 1.2.192.984 5773 375440 Methodi 00:00:00 00:00:[address] 3.430.2.7 0.2.7.3.698 Ho spita .3.647291 084.8 l .8 2021-05-04 2021-05-04 Travel 1.2.840.1 1.2.611.930 5544 819893 Methodi 00:00:00 00:00:[address] 3.430.2.7 0.2.7.3.698 Ho spita .3.436523 084.8 l .8 2021-05-02 2021-05-02 [facility] [id number] [place] 00:00:00 00:00:00 [facility] 2021-04-30 2021-04-30 Travel 1.2.840.1 1.2.756.976 4269 217528 Methodi 00:00:00 00:00:[address] 3.430.2.7 0.2.7.3.698 Ho spita .3.826554 084.8 l .8 2021-04-30 2021-04-30 Travel 1.2.840.1 1.2.347.900 0319 815754 Methodi 00:00:00 00:00:[address] 3.430.2.7 0.2.7.3.698 Ho spita .3.765045 084.8 l .8 2021-04-28 2021-04-28 Orders Istre, 1.2.840.1 174029258 053987 2678 Methodi 00:00:00 00:00:00 Only Shell 26747.1.[address] Doe 3.430.2.7 Hospi ta .3.228646 l .8 2021-04-28 2021-04-28 Orders Istre, 1.2.840.1 253682776 729043 0647 Methodi 00:00:00 00:00:00 Only Shell 11544.1.[address] [place] 3.430.2.7 Hospi ta .3.798718 l .8 2021-04-17 2021-04-17 Office Istre, 1.2.840.1 022121940 561467 5820 Methodi 15:00:00 15:00:06 Visit Shell 60732.1.[address] [place] 3.430.2.7 Hospi ta .3.971237 l .8 2021-04-17 2021-04-17 Office Istre, 1.2.840.1 054846681 428405 1121 Methodi 15:00:00 15:00:06 Visit Shell 92595.1.[address] [place] 3.430.2.7 Hospi ta .3.208010 l .8 2021-04-16 2021-04-16 Travel 1.2.840.1 1.2.348.510 2450 041925 Methodi 00:00:00 00:00:[address] 3.430.2.7 0.2.7.3.698 Ho spita .3.433937 084.8 l .8 2021-04-16 2021-04-16 Travel 1.2.840.1 1.2.745.370 6622 790701 Methodi 00:00:00 00:00:[address] 3.430.2.7 0.2.7.3.698 Ho spita .3.149453 084.8 l .8 2021-04-12 2021-04-12 Emergency Svach, 1.2.840.1 [id number] 2099010 Methodi 15:47:00 22:48:00 [place] R [address] 3.430.2.7 Hospit a .3.651413 l .8 2021-04-12 2021-04-12 Emergency Svach, 1.2.840.1 548326035 2099010 Methodi 15:47:00 22:48:00 [place] R [address].1.[address] 3.430.2.7 Hospit a .3.259470 l .8 2021-04-08 2021-04-08 Travel 1.2.840.1 1.2.792.801 2731 958317 Methodi 00:00:00 00:00:[address] 3.430.2.7 0.2.7.3.698 Ho spita .3.219638 084.8 l .8 2021-04-08 2021-04-08 Travel 1.2.840.1 1.2.645.349 9874 049434 Methodi 00:00:00 00:00:[address] 3.430.2.7 0.2.7.3.698 Ho spita .3.800354 084.8 l .8 2021-03-28 2021-03-28 Office Rj Khoury [facility] [id number] [place] 08:30:00 09:30:00 Visit [facility] 2021-03-28 2021-03-28 Outpatient [facility] [id number] [place] 00:00:00 00:00:00 [facility] 2021-03-14 2021-03-14 Outpatient [facility] [id number] [place] 00:00:00 00:00:00 [facility] 2021-03-03 2021-03-03 Telephone Alicia, 1.2.840.1 [id number] [id number] Methodi 11:20:00 11:48:51 Consult Shell 72655.1.[address] Doe 3.430.2.7 Hospi ta .3.509032 l .8 2021-02-27 2021-02-27 Travel 1.2.840.1 1.2.541.091 5385 980215 Methodi 00:00:00 00:00:[address] 3.430.2.7 0.2.7.3.698 Ho spita .3.960230 084.8 l .8 2021-02-19 2021-02-19 Outpatient VEJPONGSA, [facility] 2100 [id number] [place] 00:00:00 00:00:00 PIMPRAPA 626 Metho di 2021-02-17 2021-02-17 Outpatient [facility] [id number] 297 [place] 00:00:00 00:00:00 482 Method i 2021-02-17 2021-02-17 Outpatient STACI, [facility] [id number] 406 [place] 00:00:00 00:00:00 PROCTOR 706 Method i 2021-02-10 2021-02-10 Outpatient TAVARES, [facility] [id number] 790 [place] 00:00:00 00:00:00 PEGGY 856 Method i 2021-02-07 2021-02-07 Outpatient ALICIA, [facility] [id number] 637 [place] 00:00:00 00:00:00 SHELL 793 Method i 2021-01-30 2021-01-31 Outpatient IMELDA, [facility] [id number] 174 [place] 00:00:00 00:00:00 KRISTY 451 Method i 2021-01-25 2021-01-25 Emergency KENA KILLIAN [facility] 064 [id number] [place] 00:00:00 00:00:00 190 Method i 2021-01-24 2021-01-24 Outpatient VEJALTAGRACIAA, [facility] 2100 [id number] [place] 00:00:00 00:00:00 PIMPRAPA 711 Metho di 2021-01-09 2021-01-09 Outpatient [facility] [id number] [place] 00:00:00 00:00:00 247 Method i 2020-12-29 2020-12-29 Emergency VASQUEZ, [facility] 064 [id number] 98 [place] 00:00:00 00:00:00 CRISTÓBAL 225 Method i 2020-12-23 2020-12-23 Outpatient PRASANTH, [facility] [id number] 498 [place] 00:00:00 00:00:00 EDDIE 305 Method i 2020-12-11 2020-12-11 Emergency VASQUEZ, [facility] 064 [id number] 96 [place] 00:00:00 00:00:00 CRISTÓBAL 030 Method i 2020-12-08 2020-12-08 Emergency COURTNEY, [facility] 064 [id number] 26 [place] 00:00:00 00:00:00 TRUNG 699 Method i 2020-11-25 2020-11-26 Office Doug Estevez [facility] Encounter/ Legacy 00:00:00 00:00:00 Visit Symone Moreau [id number] Communi [id number] [facility] 2020-11-25 2020-11-26 Office Doug Estevez [facility] Encounter/ Legacy 00:00:00 00:00:00 Visit Symone Moreau [id number] Communi [id number] [facility] 2020-11-18 2020-11-18 Outpatient SMALL, [facility] [id number] [place] 00:00:00 00:00:00 PROCTOR 729 Method i 2020-11-02 2020-11-02 Emergency HALEY, [place] [address] [id number] 062 [place] 00:00:00 00:00:00 ROGER 241 Method i 2020-10-29 2020-10-29 Outpatient SMALL, [facility] [id number] 857 [place] 00:00:00 00:00:00 PROCTOR 983 Method i 2020-10-25 2020-10-25 Outpatient VEJPONVIRYA, [facility] 2100 [id number] [place] 00:00:00 00:00:00 PIMPRAPA 573 Metho di 2020-10-24 2020-10-24 Outpatient VEJPONVIRYA, [facility] 2100 [id number] [place] 00:00:00 00:00:00 PIMPRAPA 921 Metho di 2020-10-18 2020-10-19 Emergency HOPE, [facility] 064 [id number] [place] 00:00:00 00:00:00 TRUNG 724 Method i 2020-10-18 2020-10-18 Outpatient SMALL, [facility] [id number] 110 [place] 00:00:00 00:00:00 PROCTOR 224 Method i 2020-10-11 2020-10-11 Emergency COURTNEY, [facility] 064 [id number] 52 [place] 00:00:00 00:00:00 TRUNG 080 Method i 2020-10-09 2020-10-09 Outpatient PRASANTH, [facility] [id number] 499 [place] 00:00:00 00:00:00 EDDIE 020 Method i 2020-10-01 2020-10-01 Outpatient AHMED, [facility] [id number] [place] 00:00:00 00:00:00 MOHAMMAD 768 Metho di 2020-09-26 2020-09-26 Outpatient SMALL, [facility] [id number] [place] 00:00:00 00:00:00 PROCTOR 047 Method i 2020-09-13 2020-09-13 Outpatient PRASANTH, [facility] [id number] [place] 00:00:00 00:00:00 EDDIE 249 Method i 2020-09-11 2020-09-11 Outpatient VEJPONGSA, [facility] 2100 [id number] [place] 00:00:00 00:00:00 PIMPRAPA 754 Metho di 2020-08-23 2020-08-23 Outpatient AHMED, [facility] [id number] 605 [place] 00:00:00 00:00:00 MOHAMMAD 132 Metho di 2020-08-19 2020-08-21 Outpatient MELTON, [facility] [id number] 265 [place] 00:00:00 00:00:00 TRUNG 187 Method i 2020-07-31 2020-08-01 Outpatient ARREDONDO, [place] [address] [id number] [place] 00:00:00 00:00:00 RG 628 Met hodi 2020-07-16 2020-07-16 Emergency HOPE, [facility] 064 [id number] 18 [place] 00:00:00 00:00:00 TRUNG 600 Method i 2020-07-05 2020-07-05 Outpatient BROCK, [facility] [id number] [place] 00:00:00 00:00:00 [facility] 2020-07-05 2020-07-05 Emergency VASQUEZ, [facility] [id number] 62 [place] 00:00:00 00:00:00 CRISTÓBAL 088 Method i 2020-06-28 2020-06-28 Outpatient SMALL, [facility] [id number] 302 [place] 00:00:00 00:00:00 PROCTOR 174 Method i 2020-06-27 2020-06-27 Outpatient PRASANTH, [facility] [id number] 221 [place] 00:00:00 00:00:00 EDDIE [address] 2020-06-24 2020-06-24 Outpatient ISTRE, [facility] [id number] 844 [place] 00:00:00 00:00:00 SHELL [address] 2020-06-19 2020-06-20 Emergency MORMONISM, [facility] 064 [id number] 53 [place] 00:00:00 00:00:00 NADIM [address] 2020-06-11 2020-06-11 Outpatient SMALL, [facility] [id number] 229 [place] 00:00:00 00:00:00 PROCTOR [address] 2020-06-11 2020-06-11 Outpatient SMALL, [facility] [id number] [place] 00:00:00 00:00:00 PROCTOR [address] 2020-06-06 2020-06-06 Outpatient ISTRE, [facility] [id number] [place] 00:00:00 00:00:00 SHELL 498 Method i 2020-06-03 2020-06-03 Outpatient ISTRE, [facility] [id number] 559 [place] 00:00:00 00:00:00 SHELL 193 Method i 2020-06-03 2020-06-03 Outpatient ISTRE, [facility] [id number] 559 [place] 00:00:00 00:00:00 SHELL 363 Method i 2020-05-26 2020-05-27 Outpatient SMALL, [facility] [id number] [place] 00:00:00 00:00:00 HAYLEE 766 Method i 2020-05-24 2020-05-24 Emergency JOSSY, [facility] 064 [id number] 24 [place] 00:00:00 00:00:00 BELKIS 964 Method i 2020-05-23 2020-05-23 Emergency FORMAN, [facility] 064 [id number] [place] 00:00:00 00:00:00 TANIA [address] 2020 2020 Outpatient ISTRE, [facility] [id number] [place] 00:00:00 00:00:00 SHELL [address] 2020 2020 Emergency KI, [facility] 064 [id number] 65 [place] 00:00:00 00:00:00 KALIF 304 Method i 2020-05-20 2020-05-20 Outpatient ALICIA, [facility] [id number] 407 [place] 00:00:00 00:00:00 SHELL [address] 2020-05-13 2020-05-13 Outpatient BARTLETT, [facility] [id number] [place] 00:00:00 00:00:00 TRACILYN Healt h 2020-05-11 2020-05-11 Emergency HOPE, [facility] [id number] 87 [place] 00:00:00 00:00:00 TRUNG 164 Method i 2020-05-07 2020-05-07 Outpatient ROGER ZAPATA [facility] [id number] [place] 07:48:18 07:48:18 Health 2020-04-15 2020-04-15 Emergency KENA KILLIAN [facility] [id number] [place] 00:00:00 00:00:00 597 Method i 2020-04-01 2020-04-01 Emergency KI, [facility] 064 [id number] 10 [place] 00:00:00 00:00:00 KALIF 631 Method i 2020-03-23 2020-03-24 Inpatient SEPTIMUS, [facility] 089 [id number] [place] 00:00:00 00:00:00 STEPHY 252 Method i 2020-03-23 2020-03-23 Emergency HOPE, [facility] 064 [id number] 79 [place] 00:00:00 00:00:00 TRUNG 603 Method i 2020-03-20 2020-03-20 Emergency ALTAGRACIA VILLASENOR [facility] 064 [id number] [place] 00:00:00 00:00:00 875 Method i 2020-02-29 2020-03-01 Emergency DE CRANDALL, [facility] 064 [id number] [place] 00:00:00 00:00:00 EMY 731 Me thodi 2020-02-05 2020-02-06 Emergency ENE, [facility] 064 [id number] [place] 00:00:00 00:00:00 KEM 185 Meth john 2020-02-03 2020-02-03 Emergency DE CRANDALL, [facility] 064 [id number] [place] 00:00:00 00:00:00 EMY 451 Me thodi 2019-12-20 2019-12-21 Emergency ENE, [facility] 064 [id number] [place] 00:00:00 00:00:00 KEM 640 Meth john 2019-12-14 2019-12-14 Emergency KI, [facility] 064 [id number] 06 [place] 00:00:00 00:00:00 KALIF 126 Method i 2019-12-11 2019-12-11 Emergency HOPE, [place] [address] [id number] 68 [place] 00:00:00 00:00:00 TRUNG 349 Method i 2019-12-08 2019-12-08 Emergency SUSHIL, [place] [address] [id number] [place] 00:00:00 00:00:00 ISAC 449 Me thodi 2019-11-24 2019-11-24 Outpatient ROGER ZAPATA [facility] [id number] [place] 00:00:00 00:00:00 Health 2019-11-21 2019-11-21 Emergency TYSHAWN, [facility] [id number] [place] 00:00:00 00:00:00 015 Method i 2019-11-14 2019-11-14 Outpatient ROGER ZAPATA [facility] [id number] [place] 06:55:06 06:55:06 Health 2019-11-13 2019-11-13 Outpatient [facility] [id number] [place] 00:00:00 00:00:00 Health 2019-11-10 2019-11-11 Emergency HOPE, [place] [address] [id number] [place] 00:00:00 00:00:00 TRUNG 398 Method i 2019-11-07 2019-11-07 Outpatient [facility] [id number] [place] 14:24:03 14:24:03 Health 2019-11-07 2019-11-07 Outpatient [facility] [id number] [place] 12:22:44 12:22:44 Health 2019-11-07 2019-11-07 Outpatient [facility] [id number] [place] 00:00:00 00:00:00 Health 2019-11-07 2019-11-07 Outpatient [facility] [id number] [place] 00:00:00 00:00:00 Health 2019-10-30 2019-10-30 Outpatient [facility] [id number] [place] 11:49:58 11:49:58 Health 2019-10-30 2019-10-30 Outpatient [facility] [id number] [place] 00:00:00 00:00:00 Health 2019-10-12 2019-10-12 Outpatient [facility] [id number] [place] 00:00:00 00:00:00 2019-10-10 2019-10-10 Outpatient [facility] [id number] [place] 08:15:33 08:15:33 Health 2019-10-09 2019-10-09 Outpatient [facility] [id number] [place] 00:00:00 00:00:00 2019-09-25 2019-09-25 Outpatient [facility] [id number] [place] 00:00:00 00:00:00 Health 2019-09-19 2019-09-19 Outpatient [facility] [id number] [place] 15:17:15 15:17:15 Health 2019-09-12 2019-09-12 Outpatient [facility] [id number] [place] 09:33:27 09:33:27 Health 2019-09-12 2019-09-12 Outpatient [facility] [id number] [place] 08:35:47 08:35:47 Health 2019-09-12 2019-09-12 Outpatient [facility] [id number] [place] 00:00:00 00:00:00 2019-09-09 2019-09-09 Emergency HOPE, [facility] [id number] [id number] 57 [place] 00:00:00 00:00:00 TRUNG [address] 2019-08-25 2019-08-25 Outpatient [facility] [id number] [place] 06:54:32 06:54:32 Health 2019-08-24 2019-08-24 Outpatient [facility] [id number] [place] 00:00:00 00:00:00 Health 2019-08-23 2019-08-23 Outpatient [facility] [id number] [place] 00:00:00 00:00:00 Health 2019-08-05 2019-08-05 Emergency VANDER [facility] [id number] [id number] 83 [place] 00:00:00 00:00:00 Aamir YAÑEZ Method i [facility] 2019-08-03 2019-08-03 Emergency WILFREDBARRON HOYOS [facility] 064 [id number] [place] 00:00:00 00:00:[address] 2019-07-24 2019-07-24 Outpatient [facility] [id number] [place] 08:35:14 08:35:14 Health 2019-06-21 2019-06-21 Outpatient [facility] [id number] [place] 00:00:00 00:00:00 [facility] 2019-06-15 2019-06-16 Emergency HOPE, [place] [address] [id number] 79 [place] 00:00:00 00:00:00 TRUNG Alvarez i 2019-06-15 2019-06-15 Emergency [facility] MED [id number] [place] 14:03:00 14:03:00 [facility] 2019-06-14 2019-06-14 Outpatient [facility] [id number] [place] 00:00:00 00:00:00 [facility] 2019-06-08 2019-06-08 Outpatient [facility] [id number] [place] 13:49:26 13:49:26 [facility] 2019-06-08 2019-06-08 Outpatient [facility] [id number] [place] 13:11:00 13:11:00 [facility] 2019-06-08 2019-06-08 Outpatient [facility] [id number] [place] 00:00:00 00:00:00 [facility] 2019-06-07 2019-06-07 Emergency [facility] [id number] [place] 12:06:12 12:06:12 [facility] 2019-06-07 2019-06-07 Emergency [facility] MED [id number] [place] 10:57:48 10:57:48 Health 2019-03-15 2019-03-15 Outpatient [facility] [id number] [place] 14:00:36 14:00:36 [facility] 2019-03-15 2019-03-15 Outpatient [facility] [id number] [place] 12:20:09 12:20:09 Health 2019-03-15 2019-03-15 Outpatient [facility] [id number] [place] 00:00:00 00:00:00 [facility] 2019-01-25 2019-01-25 Outpatient [facility] [id number] [place] 10:20:47 10:20:47 Health 2019-01-13 2019-01-13 Outpatient [facility] [id number] [place] 10:25:55 10:25:55 Health 2019-01-03 2019-01-03 Outpatient [facility] [id number] [place] 10:33:43 10:33:43 Health 2019-01-03 2019-01-03 Outpatient [facility] [id number] [place] 08:40:50 08:40:50 Health 2019-01-03 2019-01-03 Outpatient [facility] [id number] [place] 07:58:31 07:58:31 Health 2019-01-03 2019-01-03 Outpatient [facility] [id number] [place] 00:00:00 00:00:00 Health 2018-12-29 2018-12-29 Outpatient [facility] [id number] [place] 00:00:00 00:00:00 Health 2018-12-27 2018-12-27 Outpatient [facility] [id number] [place] 00:00:00 00:00:00 Health 2018-12-26 2018-12-26 Outpatient [facility] [id number] [place] 16:37:58 16:37:58 Health 2018-12-09 2018-12-09 Outpatient [facility] [id number] [place] 16:51:56 16:51:56 Health 2018-12-09 2018-12-09 Outpatient [facility] [id number] [place] 14:15:31 14:15:31 Health 2018-12-09 2018-12-09 Outpatient [facility] [id number] [place] 00:00:00 00:00:00 [facility] 2018-11-26 2018-11-26 Emergency [facility] [id number] [place] 16:08:40 16:08:40 [facility] 2018-01-17 2018-01-17 Outpatient E MYRNA CEDENO [facility] [id number] [place] 10:49:00 12:30:00 Medica l [place] 2017-12-28 2017-12-28 Outpatient E AQUINO, [facility] [id number] [place] 10:12:00 12:25:00 PAUL Medica l [place] 2017-12-20 2017-12-20 Outpatient E MYRNA CEDENO [facility] [id number] [place] 23:13:00 23:50:00 Medica l Center 2017-10-15 2017-10-15 Outpatient E SHEIKH [facility] [id number] [place] 09:57:00 11:15:00 WAS Medica l [place] Results Test Description Test Time Test Comments Results Result Comments Source ECG 12 lead 2022-03-24 04:27:49 Test Item Value Reference Range Interpretation Comme nts Ventricular rate (test code = 253) Atrial rate (test code = 255) [place] interval (test code = 266) QRSD interval (test code = 260) QT interval (test code = 264) QTC interval (test code = 265) P axis 1 (test code = 267) QRS axis 1 (test code = 268) T wave axis (test code = 270) EKG impression (test code = 273) Normal sinus rhythm with sinus arrhythmia-Normal ECG-In automated comparison with ECG of 28-NOV-2021 10:26,-No significant change was found- [facility] [id number] 23:39:00 Test Item Value Reference Range Interpretation Comments Urine culture (test SEE COMMENT Bacteriu brandon screen code = 0513939) negative. [facility] [id number] 23:39:00 Test Item Value Reference Range Interpretation Comments Urine culture (test SEE COMMENT Bacteriu brandon screen code = 5240926) negative. [facility] [id number] 23:39:00 Test Item Value Reference Range Interpretation Comments Urine culture (test SEE COMMENT Bacteriu brandon screen code = 9388343) negative. [facility] [id number] 23:39:00 Test Item Value Reference Range Interpretation Comments Urine culture (test SEE COMMENT Bacteriu brandon screen code = 7749718) negative. [facility] B surface [id number] 22:17:00 Test Item Value Reference Range Interpretation Comments Hepatitis B surface NON-REACTIVE NON-REACTIVE Ag (test code = 5196-1) RAC (test code = RAC) Performing Organization Information: Site ID: [facility] Name: [facility] Address: [address] [place] [id number] Director: Rajinder Grant RP with reflex to [id number] 22:17:00 Test Item Value Reference Range Interpretation Comments RPR (test code = NON-REACTIVE NON-REACTIVE 12471-5) RAC (test code = Performing Organization RAC) Information: Site ID: A Name: [facility] Address: [address] [place] [phone] Director: Rajinder Grant [facility] C virus (HCV), quantitative [id number] 22:17:00 Test Item Value Reference Interpretation Comments Range HCV RNA, <15 NOT DETECTED NOT DETECTED quantitative PCR IU/mL (test code = 86017-9) HCV viral log <1.18 NOT DETECTED NOT DETECTED This bhupendra t was (test code = Log IU/mL performed using 15916-2) Real-Time Polym erase ChainReaction. Reportable Rang e: 15 IU/mL to 100,00 0,000 IU/mL(1.18 Log IU/mL to 8.00 Log IU/ mL). The analytical performance characteristics of thisassay have been determined by [employer]. Th e modifications h ave not been cleare d or approved bythe FDA. This assay has been validated pursu ant to the CLIA regulations and is used for clinic al purposes. For m ore information on this test, go to:http://educa tion. Empathica /faq/VPL61l4(Th is link is being provided for informational/e ducat ional purposes only.) RAC (test code = Performing RAC) Organization Information: Site ID: IG [facility] Address: [address] [place] [address] Director: Dr. Rajinder Grant Hepatitis C [id number] 22:17:00 Test Item Value Reference Interpretation Comments Range Hepatitis C Ab (test REACTIVE NON-REACTIVE A code = 52279-8) Signal/cutoff (test >11.00 See_Comment H Based o n this code = 96834-2) result, the sample will be testedf or [...] RAC) Organization Information: Site ID: RGA [facility] Address: [address] [place] [address] Director: Rajinder Grant Lab Interpretation Abnormal (test code = 11847-1) HSV type 1/2 combined Ab, [id number] 22:17:00 Test Item Value Reference Interpretation Comments Range HSV 1 IgM NEGATIVE (test code = 94100-1) HSV 2 IgM NEGATIVE REFERENCE RANG E: NEGATIVE HSV (test IgM is detectab le in serum code = from >90% of me trcaey 40640-2) primary HSV inf ection. However, HSV Ig [...] performancechar acteristics have been deter mined by [facility].It has not been cleared or appr luis by FDA. This assay hasb een validated pursuant to the CLIA regulations and isused for clinical purpos es. RAC (test Performing code = Organization RAC) Information: Site ID: EZ Name: [facility], Address: [address] [place] [phone] Director: Crista Camacho MD,PhD,BARI HIV 1/2 antigen/antibody, fourth generation, with reflexes 2022-02-11 22:17:00 Test Item Value Reference Range Interpretation Comments HIV NON-REACTIVE NON-REACTIVE HIV-1 antigen a nd antigen/ant HIV-1/HIV-2 ant ibodies ibody 4th were notdetecte d. There gen (test is no laborator y evidence code = of HIVinfection . PLEASE 51393-3) NOTE: This info rmation has been disclo [...] ad ditional information ple ase refer tohttp://educat ion.adQuota.[employer]/ faq/BOU350 (This link is b eing provided for informational/e ducational purposes only.) The performance of this assay has not been clinicallyvalid ated in patients less t lagunas 2 years old. RAC (test Performing code = RAC) Organization Information: Site ID: RGA [facility] Address: [address] [place] [address] Director: Rajinder Grant HSV 1 and 2 specific Ab [id number] 22:17:00 Test Item Value Reference Interpretation Comments [...] ease refer to http://educatio n.Tri tDiagnostics.co m/faq/ FCS763 (This li nk is being provided for informational/e ducati onal purposes o nly.) RAC (test code = Performing RAC) Organization Information: Site ID: IG Name: [facility] Address: [address] [place] [address] Director: Dr. Rajinder Grant Lab Interpretation Abnormal (test code = 67544-8) Hepatitis B surface [id number] 22:17:00 Test Item Value Reference Range Interpretation Comments Hepatitis B surface NON-REACTIVE NON-REACTIVE Ag (test code = 5196-1) RAC (test code = RAC) Performing Organization Information: Site ID: RGA [facility] Address: [address] [place] [address] Director: Rajinder Grant RPR with reflex to [id number] 22:17:00 Test Item Value Reference Range Interpretation Comments RPR (test code = NON-REACTIVE NON-REACTIVE 87562-6) RAC (test code = Performing Organization RAC) Information: Site ID: RGA [facility] Address: [address] [place] [address] Director: Rajinder Grant [facility] C virus (HCV), quantitative [id number] 22:17:00 Test Item Value Reference Interpretation Comments Range HCV RNA, <15 NOT DETECTED NOT DETECTED quantitative PCR IU/mL (test code = 89034-0) HCV viral log <1.18 NOT DETECTED NOT DETECTED This bhupendra t was (test code = Log IU/mL performed using 11111-9) Real-Time Polym erase ChainReaction. Reportable Rang e: 15 IU/mL to 100,00 0,000 IU/mL(1.18 Log IU/mL to 8.00 Log IU/ mL). The analytical performance characteristics of thisassay have been determined by [employer]. Th e modifications h ave not been cleare d or approved bythe FDA. This assay has been validated pursu ant to the CLIA regulations and is used for clinic al purposes. For m ore information on this test, go to:http://educa tion. [employer] /faq/PZL71q4(Th is link is being provided for informational/e ducat ional purposes only.) RAC (test code = Performing RAC) Organization Information: Site ID: IG [facility]: [facility] Address: [address] [place] [address] Director: Dr. Rajinder Grant [facility] C [id number] 22:17:00 Test Item Value Reference Interpretation Comments Range Hepatitis C Ab (test REACTIVE NON-REACTIVE A code = 22522-3) Signal/cutoff (test >11.00 See_Comment H Based o n this code = 04857-9) result, the sample will be testedf or [...] RAC) Organization Information: Site ID: RGA Name: [facility] Address: [address] [place] [address] Director: Rajinder Grant Lab Interpretation Abnormal (test code = 90244-1) HSV type 1/2 combined Ab, [id number] 22:17:00 Test Item Value Reference Interpretation Comments Range HSV 1 IgM NEGATIVE (test code = 49918-5) HSV 2 IgM NEGATIVE REFERENCE RANG E: NEGATIVE HSV (test IgM is detectab le in serum code = from >90% of [facility] 35322-9) primary HSV inf ection. However, HSV Ig [...] performancechar acteristics have been deter mined by [facility].It has not been cleared or appr luis by FDA. This assay hasb een validated pursuant to the CLIA regulations and isused for clinical purpos es. RAC (test Performing code = Organization RAC) Information: Site ID: EZ Name: [facility], Address: [address] [place] [address] Director: Crista Camacho MD,PhD,BARI HIV 1/2 antigen/antibody, fourth generation, with reflexes 2022-02-11 22:17:00 Test Item Value Reference Range Interpretation Comments HIV NON-REACTIVE NON-REACTIVE HIV-1 antigen a nd antigen/ant HIV-1/HIV-2 ant ibodies ibody 4th were notdetecte d. There gen (test is no laborator y evidence code = of HIVinfection . PLEASE 03928-7) NOTE: This info rmation has been disclo sed jenniferou from records wh ose confidentiality may beprotected [...] ad ditional information ple ase refer tohttp://educat ion.SuccessNexus.com/ faq/GQF292 (This link is b eing provided for informational/e ducational purposes only.) The performance of this assay has not been clinicallyvalid ated in patients less t lagunas 2 years old. RAC (test Performing code = RAC) Organization Information: Site ID: RGA [facility]: [facility] Address: [address] [place] [address] Director: Rajinder Grant HSV 1 and 2 specific Ab [id number] 22:17:00 Test Item Value Reference Interpretation Comments [...] For additional information, pl ease refer to http://educel Garcia tDiagnostics.[facility] m/faq/ OKC609 (This li nk is being provided for informational/e ducati onal purposes o nly.) RAC (test code = Performing RAC) Organization Information: Site ID: IG Name: [facility] Address: [address] [place] [address] Director: Dr. Rajinder Grant Lab Interpretation Abnormal (test code = 99886-3) [facility] B surface [id number] 22:17:00 Test Item Value Reference Range Interpretation Comments Hepatitis B surface NON-REACTIVE NON-REACTIVE Ag (test code = 5196-1) RAC (test code = RAC) Performing Organization Information: Site ID: RGA [facility]: [facility] Address: [address] [place] [address] Director: Rajinder Grant RP with reflex to [id number] 22:17:00 Test Item Value Reference Range Interpretation Comments RPR (test code = NON-REACTIVE NON-REACTIVE 36063-5) RAC (test code = Performing Organization RAC) Information: Site ID: RGA [facility]: [facility] Address: [address] [place] [address] Director: Rajinder Grant [facility] C virus (HCV), quantitative [id number] 22:17:00 Test Item Value Reference Interpretation Comments Range HCV RNA, <15 NOT DETECTED NOT DETECTED quantitative PCR IU/mL (test code = 93819-4) HCV viral log <1.18 NOT DETECTED NOT DETECTED This bhupendra t was (test code = Log IU/mL performed using 09529-2) Real-Time Polym erase ChainReaction. Reportable Rang e: 15 IU/mL to 100,00 0,000 IU/mL(1.18 Log IU/mL to 8.00 Log IU/ mL). The analytical performance characteristics of thisassay have been determined by [employer]. Th e modifications h ave not been cleare d or approved bythe FDA. This assay has been validated pursu ant to the CLIA regulations and is used for clinic al purposes. For m ore information on this test, go to:http://educa tion. Empathica /faq/CIV43v7(Th is link is being provided for informational/e ducat ional purposes only.) RAC (test code = Performing RAC) Organization Information: Site ID: IG [facility] Address: [address] [place] [address] Director: Dr. [facility] [id number] 22:17:00 Test Item Value Reference Interpretation Comments Range Hepatitis C Ab (test REACTIVE NON-REACTIVE A code = 94988-5) Signal/cutoff (test >11.00 See_Comment H Based o n this code = 27803-4) result, the sample will be testedf or [...] RAC) Organization Information: Site ID: RGA Name: [facility] Address: [address] [place] [address] Director: Rajinder Grant Lab Interpretation Abnormal (test code = 30449-9) [facility], [id number] 22:17:00 Test Item Value Reference Interpretation Comments Range HSV 1 IgM NEGATIVE (test code = 88853-1) HSV 2 IgM NEGATIVE REFERENCE RANG E: NEGATIVE HSV (test IgM is detectab le in serum code = from >90% of [facility] 11902-8) primary HSV inf ection. However, HSV Ig [...] performancechar acteristics have been deter mined by [facility].It has not been cleared or appr luis by FDA. This assay hasb een validated pursuant to the CLIA regulations and isused for clinical purpos es. RAC (test Performing code = Organization RAC) Information: Site ID: EZ Name: [facility], Address: [address] [place] [address] Director: Crista Camacho MD,PhD,BARI HIV 1/2 antigen/antibody, fourth generation, with reflexes 2022-02-11 22:17:00 Test Item Value Reference Range Interpretation Comments HIV NON-REACTIVE NON-REACTIVE HIV-1 antigen a nd antigen/ant HIV-1/HIV-2 ant ibodies ibody 4th were notdetecte d. There gen (test is no laborator y evidence code = of HIVinfection . PLEASE 93150-7) NOTE: This info rmation has been disclo sed liv from records wh ose confidentiality may beprotected by state law. If your state r equires suchprotection, then the state law prohi bits you frommaking any further disclosure of t he informationwith out the specific writte n consent of the personto whom it pertains, or as otherwise permitted by rodriguez ocampo.Rd general authori zation for the release of medical orother informa tion is NOT sufficient for this purpose. For ad ditional information ple ase refer tohttp://educat ion.adQuota.[employer]/ faq/VUJ096 (This link is b eing provided for informational/e ducational purposes only.) The performance of this assay has not been clinicallyvalid ated in patients less t lagunas 2 years old. RAC (test Performing code = RAC) Organization Information: Site ID: RGA [facility]: [facility] Address: [address] [place] [address] Director: Rajinder Grant HSV 1 and 2 specific Ab [id number] 22:17:00 Test Item Value Reference Interpretation Comments [...] ease refer to http://educatio n.Ques tDiagnostics.co m/faq/ SOW130 (This li nk is being provided for informational/e ducati onal purposes o nly.) RAC (test code = Performing RAC) Organization Information: Site ID: IG Name: [facility] Address: [address] [place] [address] Director: Dr. Rajinder Grant Lab Interpretation Abnormal (test code = 21483-6) [facility] B surface [id number] 22:17:00 Test Item Value Reference Range Interpretation Comments Hepatitis B surface NON-REACTIVE NON-REACTIVE Ag (test code = 5196-1) RAC (test code = RAC) Performing Organization Information: Site ID: RGA [facility]: [facility] Address: [address] [place] [address] Director: Rajinder Grant [facility] to [id number] 22:17:00 Test Item Value Reference Range Interpretation Comments RPR (test code = NON-REACTIVE NON-REACTIVE 22565-8) RAC (test code = Performing Organization RAC) Information: Site ID: RGA [facility]: [facility] Address: [address] [place] [address] Director: Rajinder Grant [facility] C virus (HCV), quantitative [id number] 22:17:00 Test Item Value Reference Interpretation Comments Range HCV RNA, <15 NOT DETECTED NOT DETECTED quantitative PCR IU/mL (test code = 63513-7) HCV viral log <1.18 NOT DETECTED NOT DETECTED This bhupendra t was (test code = Log IU/mL performed using 06997-7) Real-Time Polym erase ChainReaction. Reportable Rang e: 15 IU/mL to 100,00 0,000 IU/mL(1.18 Log IU/mL to 8.00 Log IU/ mL). The analytical performance characteristics of thisassay have been determined by [employer]. Th e modifications h ave not been cleare d or approved bythe FDA. This assay has been validated pursu ant to the CLIA regulations and is used for clinic al purposes. For m ore information on this test, go to:http://[employer]. Empathica /faq/LJJ65i7(Th is link is being provided for informational/e ducat ional purposes only.) RAC (test code = Performing RAC) Organization Information: Site ID: IG [facility]: [facility] Address: [address] [place] [address] Director: Dr. Rajinder Grant [facility] [id number] 22:17:00 Test Item Value Reference Interpretation Comments Range Hepatitis C Ab (test REACTIVE NON-REACTIVE A code = 41624-1) Signal/cutoff (test >11.00 See_Comment H Based o n this code = 45275-2) result, the sample will be testedf or [...] RAC) Organization Information: [facility] ID: [facility] Address: [address] [place] [address] Director: Rajinder Grant Lab Interpretation Abnormal (test code = 46249-7) [facility], [id number] 22:17:00 Test Item Value Reference Interpretation Comments Range HSV 1 IgM NEGATIVE (test code = 03400-2) HSV 2 IgM NEGATIVE REFERENCE RANG E: NEGATIVE HSV (test IgM is detectab le in serum code = from >90% of me tracey 85335-7) primary HSV inf ection. However, HSV Ig [...] performancechar acteristics have been deter mined by [facility].It has not been cleared or appr luis by FDA. This assay hasb een validated pursuant to the CLIA regulations and isused for clinical purpos es. RAC (test Performing code = Organization RAC) Information: Site ID: EZ Name: [facility], Address: [address] [place] [address] Director: Crista Camacho MD,PhD,BARI [facility]/antibody, fourth generation, with reflexes 2022-02-11 22:17:00 Test Item Value Reference Range Interpretation Comments HIV NON-REACTIVE NON-REACTIVE HIV-1 antigen a nd antigen/ant HIV-1/HIV-2 ant ibodies ibody 4th were notdetecte d. There gen (test is no laborator y evidence code = of HIVinfection . PLEASE 05989-5) NOTE: This info rmation has been disclo [...] ad ditional information ple ase refer tohttp://educat ion.SuccessNexus.com/ faq/MTP089 (This link is b eing provided for informational/e ducational purposes only.) The performance of this assay has not been clinicallyvalid ated in patients less t lagunas 2 years old. RAC (test Performing code = RAC) Organization Information: Site ID: RGA [facility]: [facility] Address: [address] [place] [address] Director: Rajinder Grant HSV 1 and 2 specific Ab [id number] 22:17:00 Test Item Value Reference Interpretation Comments [...] ease refer to http://educatio n.Ques tDiagnostics.co m/faq/ XEU191 (This li nk is being provided for informational/e ducati onal purposes o nly.) RAC (test code = Performing RAC) Organization Information: Site ID: IG Name: [facility] Address: [address] [place] [address] Director: Dr. Rajinder Grant Lab Interpretation Abnormal (test code = 45452-6) [facility] [id number] 15:02:28 Test Item Value Reference Range Interpretation Comments Case number (test code = [id number]) Surgical pathology See link below for report (test code = PDF Lab Report 2255) Result status (test code This is Final Report = [id number]) for [id number] [facility] [id number] 15:02:28 Test Item Value Reference Range Interpretation Comments Case number (test code = [id number]) Surgical pathology See link below for report (test code = PDF Lab Report 2255) Result status (test code This is Final Report = [id number]) for [id number] [facility] [id number] 15:02:28 Test Item Value Reference Range Interpretation Comments Case number (test code = [id number]) Surgical pathology See link below for report (test code = PDF Lab Report 2255) Result status (test code This is Final Report = [id number]) for [id number] [facility] [id number] 15:02:28 Test Item Value Reference Range Interpretation Comments Case number (test code = [id number]) Surgical pathology See link below for report (test code = PDF Lab Report 2255) Result status (test code This is Final Report = [id number]) for [id number] [facility] qualitative [id number] 22:09:28 Test Item Value Reference Interpretation Comments Range Interpretation (test Negative results do not code = 0809719) preclude COVID-19 infection and should not be used asthe sole basis for treatment or other patient management decisions. Negativeresults must be combined with clinical observations, patient history, andepidemiological information. COVID-19 qualitative Not-Detected Not-Detected RT-PCR result (test code = 50004-4) COVID-19 qualitative See link below for PDF Case Number: RT-PCR (test code = Lab Report [id number]) COVID-19 qualitative [id number] 22:09:28 Test Item Value Reference Interpretation Comments Range Interpretation (test Negative results do not code = 3584823) preclude COVID-19 infection and should not be used asthe sole basis for treatment or other patient management decisions. Negativeresults must be combined with clinical observations, patient history, andepidemiological information. COVID-19 qualitative Not-Detected Not-Detected RT-PCR result (test code = 75902-5) COVID-19 qualitative See link below for PDF Case Number: RT-PCR (test code = Lab Report [id number]) COVID-19 qualitative [id number] 22:09:28 Test Item Value Reference Interpretation Comments Range Interpretation (test Negative results do not code = 7539797) preclude COVID-19 infection and should not be used asthe sole basis for treatment or other patient management decisions. Negativeresults must be combined with clinical observations, patient history, andepidemiological information. COVID-19 qualitative Not-Detected Not-Detected RT-PCR result (test code = 31097-6) COVID-19 qualitative See link below for PDF Case Number: RT-PCR (test code = Lab Report [id number]) COVID-19 qualitative [id number] 22:09:28 Test Item Value Reference Interpretation Comments Range Interpretation (test Negative results do not code = 9288419) preclude COVID-19 infection and should not be used asthe sole basis for treatment or other patient management decisions. Negativeresults must be combined with clinical observations, patient history, andepidemiological information. COVID-19 qualitative Not-Detected Not-Detected RT-PCR result (test code = 66727-1) COVID-19 qualitative See link below for PDF Case Number: RT-PCR (test code = Lab Report [id number]) [facility] ([facility] RNA [Presence] in Respiratory specimen by LATESHA with probe [id number] 17:09:28 Test Item Value Reference Range Interpretation Comments SARS-CoV-2 (COVID-19) RNA Not detected [Presence] in Respiratory specimen by LATESHA with probe detection (test code = 41300-6) Whether patient is employed in a Unknown healthcare setting (test code = 87520-5) Whether the patient has symptoms Unknown related to condition of interest (test code = 63858-6) Whether the patient was Unknown hospitalized for condition of interest (test code = 53967-7) Whether the patient was admitted Unknown to intensive care unit (ICU) for condition of interest (test code = 41995-8) Whether patient resides in a Unknown congregate care setting (test code = 85399-2) status (test code = Unknown 90924-7) Date and time of symptom onset Unknown (test code = 86569-9) [facility]ITAL[facility]INPREP TIS AND HPV mRNA [id number] 20:30:00 Test Item Value Reference Interpretation Comments Range Clinical information None gi niurka (test code = 40136-5) Date of last NONE GIVEN menstrual period (test code = 8665-2) Prev. pap: (test code NONE G IVEN = 79640-8) Prev. bx: (test code NONE GI NIURKA = 17911-7) Source (test code = None giv en 36817-0) Statement of adequacy Satisf actory for (test code = 52652-6) evalua tion.Endocervi ocny/transformat ion zone componentpresen t.Age and/or menstrua l status not prov ided Interpretation/result Negati ve for : (test code = intraepitheli al 41804-0) lesion or malignancy. Comment (test code = This Pa p test has ) been evaluated with [employer] d technology. Cell Tester NATO, CT ( CP)CT (test code = 80275-2) screen ing location: [address], [place] [address] 2 Comment (test code = EXPLANA TORY NOTE: 0078160) The Pap is a screening test for [...] Detected Not Detected Methodo logy: code = 30709-4) Transcriptio n-Mediat ed Amplificatio n This assay [...] For additional information, pl ease refer tohttp://educat ion.[employer] faq/YHT118w1(Th is link if provide d for information/edu catio nal purposes on ly.) JACEK (test code = RAC) Performing Organization Information: Site ID: IG Name: [facility] Address: [address] [place] [address] Director: Dr. Rajinder Grant Site ID: RGA Name: [facility] Address: [address] [place] [address] Director: Rajinder Grant THINPREP TIS AND HPV mRNA [id number] 20:30:00 Test Item Value Reference Interpretation Comments Range Clinical information None gi niurka (test code = 22241-9) Date of last NONE GIVEN menstrual period (test code = 8665-2) Prev. pap: (test code NONE G IVEN = 91142-9) Prev. bx: (test code NONE GI NIURKA = 73365-8) Source (test code = None giv en ) Statement of adequacy Satisf actory for (test code = 86701-6) evalua tion.Endocervi cony/transformat ion zone componentpresen t.Age and/or menstrua l status not prov ided Interpretation/result Negati ve for : (test code = intraepitheli al 53524-1) lesion or malignancy. Comment (test code = This Pa p test has ) been evaluated with Conelumiste d technology. Cell Tester NATO, CT ( CP)CT (test code = 74383-1) screen ing location: [address], [place] [address] 2 Comment (test code = EXPLANA TORY NOTE: 1191109) The Pap is a screening test for [...] Detected Not Detected Methodo logy: code = 86349-1) Transcriptio n-Mediat ed Amplificatio n This assay [...] For additional information, pl ease refer tohttp://educat ion.[employer] faq/LRP577j3(Th is link if provide d for information/edu catio nal purposes on ly.) RAC (test code = RAC) Performing Organization Information: Site ID: IG Name: [facility] Address: [address] [place] [address] Director: Dr. Rajinder Grant Site ID: RGA Name: [facility] Address: [address] [place] [address] Director: Rajinder Grant THINPREP TIS AND HPV mRNA [id number] 20:30:00 Test Item Value Reference Interpretation Comments Range Clinical information None gi niurka (test code = 59197-0) Date of last NONE GIVEN menstrual period (test code = 8665-2) Prev. pap: (test code NONE G IVEN = 26718-3) Prev. bx: (test code NONE GI NIURKA = 34986-4) Source (test code = None giv en ) Statement of adequacy Satisf actory for (test code = 53933-7) evalua tion.Endocervi cony/transformat ion zone componentpresen t.Age and/or menstrua l status not prov ided Interpretation/result Negati ve for : (test code = intraepitheli al 45200-8) lesion or malignancy. Comment (test code = This Pa p test has ) been evaluated with computerassiste d technology. Cell Tester DJL, CT ( CP)CT (test code = 30534-0) screen ing location: [facility] [address] [place] [address], [place] [address] 2 Comment (test code = EXPLANA TORY NOTE: 2025518) The Pap is a screening test for cervical cancer . It is not a diagno stic test and is sub ject to false negati ve and false posit cole results. It is most reliable when a satisfactory sa mple, regularly obtai kady, is submitted wi relevant clinic al findings and history, and wh en the Pap result is evaluated along with historic and cu rrent clinical information. HPV mRNA e6/e7 (test Not Detected Not Detected Methodo logy: code = 87292-4) Transcriptio n-Mediat ed Amplificatio n This assay [...] For additional information, pl ease refer tohttp://educat MDCapsule/ faq/XZG780t4(Th is link if provide d for information/edu catio nal purposes on ly.) JACEK (test code = RAC) Performing Organization Information: Site ID: TIM Name: [facility] Address: [address] [place] [address] Director: Dr. Rajinder Grant Site ID: RGA [facility] Address: [address] [place] [address] Director: Rajinder Grant THINPREP TIS AND HPV mRNA [id number] 20:30:00 Test Item Value Reference Interpretation Comments Range Clinical information None gi niurka (test code = 48748-6) Date of last NONE GIVEN menstrual period (test code = 8665-2) Prev. pap: (test code NONE G IVEN = 39472-7) Prev. bx: (test code NONE GI NIURKA = 93682-0) Source (test code = None giv en ) Statement of adequacy Satisf actory for (test code = 64906-4) evalua tion.Endocervi cony/transformat ion zone componentpresen t.Age and/or menstrua l status not prov ided Interpretation/result Negati ve for : (test code = intraepitheli al 27600-2) lesion or malignancy. Comment (test code = This Pa p test has ) been evaluated with computerassiste d technology. Cell Tester NATO, CT ( CP)CT (test code = 09524-6) screen ing location: [facility] [address] [place] [address], [place] [address] 2 Comment (test code = MARYURIA NONA NOTE: 5805026) The Pap is a screening test for [...] Detected Not Detected Methodo logy: code = 73205-1) Transcriptio n-Mediat ed Amplificatio n This assay [...] For additional information, pl ease refer tohttp://educat ion.[employer] faq/MWV476x0(Th is link if provide d for information/edu catio nal purposes on ly.) RAC (test code = RAC) Performing Organization Information: Site ID: TIM Name: [facility] Address: [address] [place] [address] Director: Dr. Rajinder Grant Site ID: RGA Name: [facility] Address: [address] [place] [address] Director: Rajinder Parker [facility] 12 [id number] 18:14:37 Test Item Value Reference Range Interpretation Comments Ventricular rate (test code = 253) Atrial rate (test code = 255) W[place] interval (test code = 266) QRSD interval [...] of 07-NOV-2021 12:57,-No significant change was found- [address]2022-09-01 18:14:37 Test Item Value Reference Range Interpretation Comments Ventricular rate (test code = 253) Atrial rate (test code = 255) W[place] interval (test code = 266) QRSD interval [...] of 07-NOV-2021 12:57,-No significant change was found- [address]2022-09-01 18:14:37 Test Item Value Reference Range Interpretation Comments Ventricular rate (test code = 253) Atrial rate (test code = 255) W[place] interval (test code = 266) QRSD interval [...] of 07-NOV-2021 12:57,-No significant change was found- [facility] [Presence] in Respiratory specimen by LATESHA with probe [id number] 21:57:49 Test Item Value Reference Range Interpretation Comments SARS-CoV-2 (COVID-19) RNA [Presence] Detected in Respiratory specimen by LATESHA with probe detection (test code = 20823-1) Whether patient is employed in a Unknown healthcare setting (test code = 11349-7) Whether the patient has symptoms Unknown related to condition of interest (test code = 64685-6) Whether the patient was hospitalized Unknown for condition of interest (test code = 43797-4) Whether the patient was admitted to Unknown intensive care unit (ICU) for condition of interest (test code = 18729-4) Whether patient resides in a Unknown congregate care setting (test code = 78234-7) status (test code = Unknown 46400-5) Date and time of symptom onset (test Unknown code = 15075-9) [facility] function [id number] 18:40:00 Test Item Value Reference Range Interpretation [...] 1920-8) ALT (test code = 14 U/L 10-08-6) WILDA (test code = FASTING: UNKNOWN WILDA) RAC (test code = Performing RAC) Organization Information: Site ID: BEBA [facility] Address: [address] [place] [address] Director: Rajinder KiddStarr County Memorial HospitalHepatic function [id number] 18:40:00 Test Item Value Reference Range Interpretation [...] 6768-6) AST (test code = 13 U/L 1919-11) ALT (test code = 14 U/L 10-08-6) WILDA (test code = FASTING: UNKNOWN WILDA) RAC (test code = Performing RAC) Organization Information: Site ID: BEBA [facility] Address: [address] [place] [address] Director: Rajinder LamarNewark HospitalHepatic function [id number] 18:40:00 Test Item Value Reference Range Interpretation [...] AST (test code = 13 U/L 10-35 0-8) ALT (test code = 14 U/L 6-29 1742-6) WILDA (test code = FASTING: UNKNOWN WILDA) RAC (test code = Performing RAC) Organization Information: Site ID: RGA [facility] Address: [address] [place] [address] Director: Rajinder LamarNewark HospitalHepatic function [id number] 18:40:00 Test Item Value Reference Range Interpretation [...] AST (test code = 13 U/L 10-35 0-8) ALT (test code = 14 U/L 6-29 1742-6) WILDA (test code = FASTING: UNKNOWN WILDA) RAC (test code = Performing RAC) Organization Information: Site ID: RGA [facility] Address: [address] [place] [address] Director: Rajinder MartínezARS-CoV-2 (COVID-19) RNA [Presence] in Respiratory specimen by LATESHA with probe [id number] 20:46:09 Test Item Value Reference Range Interpretation Comments SARS-CoV-2 (COVID-19) RNA Not detected [Presence] in Respiratory specimen by LATESHA with probe detection (test code = 74905-2) Whether patient is employed in a Unknown healthcare setting (test code = 39452-9) Whether the patient has symptoms Unknown related to condition of interest (test code = 09688-2) Whether the patient was Unknown hospitalized for condition of interest (test code = 75407-9) Whether the patient was admitted Unknown to intensive care unit (ICU) for condition of interest (test code = 70333-1) Whether patient resides in a Unknown congregate care setting (test code = 79720-0) status (test code = Unknown 84333-4) Date and time of symptom onset Unknown (test code = 47037-6) [facility] HospitalThyroid stimulating [id number] 05:23:00 Test Item Value Reference Range Interpretation Comments TSH (test code mIU/L Reference R paris = 3016-3) > or = 20 Years 0.40-4.50 Range s First trimester 0.26-2.66 Secon d trimester 0.55-2.73 Thir d trimester 0.43-2.91 RAC (test code Performing = RAC) Organization Information: Site ID: RGA [facility]: [facility] Address: [address] [place] [address] Director: Rajinder KiddDell [facility] Texasroid [facility] [id number] 05:23:00 Test Item Value Reference Range Interpretation Comments TSH (test code mIU/L Reference Ra nge > = 3016-3) or = 20 Years 0.40-4.50 Range s First trimester 0.26-2.66 Secon d trimester 0.55-2.73 Third trimester 0.43-2.91 RAC (test code Performing = RAC) Organization Information: Site ID: RGA Name: [facility] mBeat MediaAdvanced [facility] Address: [address] [place] [address] Director: Rajinder Girma WardRudySt. Rita's Hospitalroid [facility] [id number] 05:23:00 Test Item Value Reference Range Interpretation Comments TSH (test code mIU/L Reference Ra nge = 3016-3) > or = 20 Years 0.40-4.50 Range s First trimester 0.26-2.66 Secon d trimester 0.55-2.73 Third trimester 0.43-2.91 RAC (test code Performing = RAC) Organization Information: Site ID: RGA Name: [facility] mBeat [facility]Advanced [facility] Address: [address] [place] [address] Director: [facility] CenterThyroid stimulating [id number] 05:23:00 Test Item Value Reference Range Interpretation Comments TSH (test code mIU/L Reference Ra nge = 3016-3) > or = 20 Years 0.40-4.50 Range s First trimester 0.26-2.66 Secon d trimester 0.55-2.73 Third trimester 0.43-2.91 RAC (test code Performing = RAC) Organization Information: Site ID: BEBA Name: [facility] Address: [address] [place] [address] Director: [facility] CenterUA RFLX MICR CULT IF [id number] 18:48:00 Test Item Value Reference Range Interpretation [...] LACT) 0.7 mmol/L 0.7-2.0 N LIVER FUNCTION [id number] 15:14:00 Test Item Value Reference Range Interpretation [...] U/L 38-126 N (test code = ALKP) [id number] 15:14:00 Test Item Value Reference Range Interpretation [...] ~~~~~~~~~~~~ ~~~~~~~~~~~~~~~ ~~~~~~~~~~~~ ~~~~~~~~~~~~~~~ ~ BASIC METABOLIC [id number] 15:14:00 Test Item Value Reference Range Interpretation [...] = HEMINDEX) - CT ABD PELVIS W/O [id number] 14:53:00 [facility] 1970 Sex: F FAX: Debo Gutierrez [place]: St: REG Name: HERSON JACKSON [facility] : 1970 Age/S: 51/F [address] Unit: [id number] Loc: [place] [address] Phys: Debo Gutierrez Acct: [id number] Dis Date: Status: REG ER PHONE #: [phone] Exam Date: 08/08/2021 [facility] FAX #: [phone] Reason: flank pain EXAMS: CPT CODE: [id number] CT ABD PELVIS W/O CONT 65102 EXAM: CT abdomen and pelvis without contrast [...] adjustment of the mA and/or kV according to patient size, and/or utilization of iterative reconstruction technique. [...] nephrolithiasis Left kidney: The kidneys are normal. No hydronephrosis there is a punctated calcification at the mid to lower aspect compatible with PAGE 1 Si gned Report (CONTINUED) FAX: Debo Gutierrez [place]: St: REG Name: HERSON JACKSON [facility] : 1970 Age/S: 51/F [address] Unit: [id number] Loc: [place] [address] Phys: Debo Gutierrez Acct: [id number] Dis Date: Status: REG ER PHONE #: [phone] Exam Date: 08/08/2021 [facility] FAX #: Reason: flank pain EXAMS: CPT CODE: [id number] CT ABD PELVIS W/O CONT 76621 (Continued) nephrolithiasis . Evaluation of the bladder [...] 2 Signed Report (CONTINUED) FAX: Debo Gutierrez [place]: St: REG Name: HERSON JACKSON [facility] : 1970 Age/S: 51/F [address] Unit: [id number] Loc: [place] [address] Phys: Debo Gutierrez Acct: [id number] Dis Date: Status: REG ER PHONE #: [phone] Exam Date: 08/08/2021 1435 FAX #: [phone] Reason: flank pain EXAMS: CPT CODE: [id number] CT ABD PELVIS W/O CONT 11089 (Continued) CC: Debo Gutierrez Technologist: Debo Ortiz; SCOTT BENAVIDES Trnscrd Dt/Tm: 08/08/2021 (0763) tSTEFANY Orig Print D/T: S: 08/08/2021 (6256 PAGE 3 Signed ReportOH[facility] W/AUTO [id number] 14:21:00 Test Item Value Reference Range Interpretation [...] 3/uL 0.0-0.1 N - XR CHEST 1 [id number] 13:50:00 [facility] : 1970 Sex: F FAX: Debo Gutierrez [place]: St: PRE Name: HERSON JACKSON [facility] : 1970 Age/S: 51/F [address] Unit #: [id number] Loc: [place] [address] Phys: Debo Gutierrez Acct: [id number] Dis Date:Status: PRE ER PHONE #: [phone] Exam Date: 08/08/2021 1340 FAX #: [phone] Reason: CODE SEPSIS EXAMS: CPT CODE: [id number] XR CHEST 1 V 57077 CHEST 1 VIEW: INDICATION: CODE SEPSIS COMPARISON: [...] Gutierrez Technologist: NAY GILLIS; STUDENT 2ND YEAR Trnnjrd Date/Time/By: 08/08/2021 (1594) : By: [email or web address] PAGE 1 Signed Report FAX: Debo Gutierrez [place]: St: PRE -- Name: HERSON JACKSON [facility] : 1970 Age/S: 51/F [address] Unit #: [id number] Loc:[place] [address] Phys: Debo Gutierrez [facility] Acct: [id number] Dis Date: Status: PRE ER PHONE #: [phone] Exam Date: 08/08/2021 1340 FAX #: [phone] Reason: CODE SEPSIS EXAMS: CPT CODE: [id number] XR CHEST 1 V 61845 (Continued) Orig Print D/T: S: 08/08/2021 (3875) PAGE 2 Signed ReportTHINPREP TIS PAP AND HPV mRNA E6/E7 REFLEX HPV 16,18/45 2021-06-19 18:43:00 Test Item Value Reference Interpretation Comments Range Clinical information None gi niurka (test code = 87804-0) Date of last NONE GIVEN menstrual period (test code = 8665-2) Prev. pap: (test code NONE G IVEN = 63692-8) Prev. bx: (test code NONE GI NIURKA = 44310-0) Source (test code = None giv en 66914-0) Statement of adequacy Satisf actory for (test code = 72593-0) evalua tion.Endocervi cony/transformat ion zone componentpresen t.Age and/or menstrua l status not prov ided Interpretation/result Negati ve for : (test code = intraepitheli al 41632-3) lesion or malignancy. Comment (test code = This Pa p test has ) been evaluated with computerassiste d technology. Review PMT, CT(ASCP)CT roll on man screening l ocation: (test code = 53295-6) [facility] [address], [place] [address] 2 Comment (test code = MARYURIA NONA NOTE: 6416868) The Pap is a screening test for cervical cancer . It is not a diagno stic test and is sub ject to false negati ve and false posit cole results. It is most reliable when a satisfactory sa mple, regularly obtai kady, is submitted wi relevant clinic al findings and history, and wh en the Pap result is evaluated along with historic and cu rrent clinical information. HPV mRNA e6/e7 (test Not Detected Not Detected Methodo logy: code = 21146-9) Transcriptio n-Mediat ed Amplificatio n This assay dete cts E6/E7 viral messenger RNA ( mRNA) from 14high-ris k HPV types (16,18,31,33,35 ,39,4 5,51,52,56,58,5 9,66, 68). The analyt ical performance characteristics of thisassay have been determined by [employer].The modifications h ave not been cleare d or approvedby the FDA. This assay has been validated pursu antto the CLIA regula tions and is used forclinical purposes. For additional information, pl ease refer tohttp://educat ion.[employer] .com/ faq/XEP971f9(Th is link if provide d for information/edu catio nal purposes on ly.) RAC (test code = RAC) Performing Organization Information: Site ID: IG Name: [facility] Address: [address] [place] [address] Director: Dr. Rajinder Grant Site ID: RGA Name: [facility] Address: [address] [place] [address] Director: Rajinder Grant THINPREP TIS PAP AND HPV mRNA E6/E7 REFLEX HPV 16,18/45 2021-06-19 18:43:00 Test Item Value Reference Interpretation Comments Range Clinical information None gi niurka (test code = 89326-0) Date of last NONE GIVEN menstrual period (test code = 8665-2) Prev. pap: (test code NONE G IVEN = 52666-3) Prev. bx: (test code NONE GI NIURKA = 60332-9) Source (test code = None giv en ) Statement of adequacy Satisf actory for (test code = 73016-2) evalua tion.Endocervi cony/transformat ion zone componentpresen t.Age and/or menstrua l status not prov ided Interpretation/result Negati ve for : (test code = intraepitheli al 95956-8) lesion or malignancy. Comment (test code = This Pa p test has ) been evaluated with Conelumiste d technology. Review PMT, CT(ASCP)CT roll on man screening l ocation: (test code = ) [employer] [place] [address], [facility] [address] Comment (test code = EXPLANA TORY NOTE: 9406694) The Pap is a screening test for cervical cancer . It is not a diagno stic test and is sub ject to false negati ve and false posit cole results. It is most reliable when a satisfactory sa mple, regularly obtai kady, is submitted wi relevant clinic al findings and history, and wh en the Pap result is evaluated along with historic and cu rrent clinical information. HPV mRNA e6/e7 (test Not Detected Not Detected Methodo logy: code = 68159-2) Transcriptio n-Mediat ed Amplificatio n This assay dete cts E6/E7 viral messenger RNA ( mRNA) from 14high-ris k HPV types (16,18,31,33,35 ,39,4 5,51,52,56,58,5 9,66, 68). The analyt ical performance characteristics of thisassay have been determined by [employer].The modifications h ave not been cleare d or approvedby the FDA. This assay has been validated pursu antto the CLIA regula tions and is used forclinical purposes. For additional information, pl ease refer tohttp://educat ion.[employer] .[employer]/ faq/NUY004v7(Th is link if provide d for information/edu catio nal purposes on ly.) JACEK (test code = JACEK) Performing Organization Information: Site ID: IG Name: [facility] Address: [address] [place] [address] Director: Dr. Rajinder Grant Site ID: RGA Name: [facility] Address: [address] [place] [address] Director: Rajinder Grant THINPREP TIS PAP AND HPV mRNA E6/E7 REFLEX HPV 16,18/45 2021-06-19 18:43:00 Test Item Value Reference Interpretation Comments Range Clinical information None gi niurka (test code = 70882-2) Date of last NONE GIVEN menstrual period (test code = 8665-2) Prev. pap: (test code NONE G IVEN = 44241-8) Prev. bx: (test code NONE GI NIURKA = 65742-3) Source (test code = None giv en ) Statement of adequacy Satisf actory for (test code = 02885-4) evalua tion.Endocervi cony/transformat ion zone componentpresen t.Age and/or menstrua l status not prov ided Interpretation/result Negati ve for : (test code = intraepitheli al 16841-2) lesion or malignancy. Comment (test code = This Pa p test has ) been evaluated with computerassiste d technology. Review PMT, CT(ASCP)CT roll on man screening l ocation: (test code = 30101-9) [employer] [address], [facility] [address] Comment (test code = EXPLANA TORY NOTE: 3849058) The Pap is a screening test for [...] Detected Not Detected Methodo logy: code = 18651-3) Transcriptio n-Mediat ed Amplificatio n This assay dete cts E6/E7 viral messenger RNA ( mRNA) from 14high-ris k HPV types (16,18,31,33,35 ,39,4 5,51,52,56,58,5 9,66, 68). The analyt ical performance characteristics of thisassay have been determined by [employer].The modifications h ave not been cleare d or approvedby the FDA. This assay has been validated pursu antto the CLIA regula tions and is used forclinical purposes. For additional information, pl ease refer tohttp://educat ion.[employer] .[employer]/ faq/DXJ736q1(Th is link if provide d for information/edu catio nal purposes on ly.) RAC (test code = RAC) Performing Organization Information: Site ID: IG Name: [facility] Address: [address] [place] [address] Director: Dr. Rajinder Grant Site ID: RGA Name: [facility] Address: [address] [place] [address] Director: Rajinder Grant THINPREP TIS PAP AND HPV mRNA E6/E7 REFLEX HPV 16,18/45 2021-06-19 18:43:00 Test Item Value Reference Interpretation Comments Range Clinical information None gi niurka (test code = 13117-1) Date of last NONE GIVEN menstrual period (test code = 8665-2) Prev. pap: (test code NONE G IVEN = 12633-1) Prev. bx: (test code NONE GI NIURKA = 85026-3) Source (test code = None giv en 23035-4) Statement of adequacy Satisf actory for (test code = 38119-0) evalua tion.Endocervi cony/transformat ion zone componentpresen t.Age and/or menstrua l status not prov ided Interpretation/result Negati ve for : (test code = intraepitheli al 55101-6) lesion or malignancy. Comment (test code = This Pa p test has ) been evaluated with computerassiste d technology. Review PMT, CT(ASCP)CT roll on man screening l ocation: (test code = 56038-9) [employer] [address], [place] [address] 2 Comment (test code = EXPLANA TORY NOTE: 2633816) The Pap is a screening test for cervical cancer . It is not a diagno stic test and is sub ject to false negati ve and false posit cole results. It is most reliable when a satisfactory sa mple, regularly obtai kady, is submitted wi relevant clinic al findings and history, and wh en the Pap result is evaluated along with historic and cu rrent clinical information. HPV mRNA e6/e7 (test Not Detected Not Detected Methodo logy: code = 09647-2) Transcriptio n-Mediat ed Amplificatio n This assay dete cts E6/E7 viral messenger RNA ( mRNA) from 14high-ris k HPV types (16,18,31,33,35 ,39,4 5,51,52,56,58,5 9,66, 68). The analyt ical performance characteristics of thisassay have been determined by [employer].The modifications h ave not been cleare d or approvedby the FDA. This assay has been validated pursu antto the CLIA regula tions and is used forclinical purposes. For additional information, pl ease refer tohttp://educat ion.[employer]/ faq/GMU160m8(Th is link if provide d for information/edu catio nal purposes on ly.) RAC (test code = RAC) Performing Organization Information: Site ID: IG Name: [facility] Address: [address] [place] [address] Director: Dr. Rajinder Grant Site ID: RGA Name: [facility] Address: [address] [place] [address] Director: Rajinder Grant [facility], WITH REFLEX TO [id number] 09:37:00 Test Item Value Reference Interpretation Comments Range Color, UA (test code YELLOW YELLOW = 5778-6) Appearance (test CLEAR CLEAR code = 5767-9) Specific gravity, 1.001-1.035 urine (test code = 5811-5) pH, urine (test code 5.0-8.0 = 5803-2) Glucose, urine (test NEGATIVE NEGATIVE code = 44099-8) Bilirubin, UA (test NEGATIVE NEGATIVE code = 5770-3) Ketones, UA (test NEGATIVE NEGATIVE code = 2514-8) Occult blood, urine NEGATIVE NEGATIVE (test code = 5794-3) Protein, UA (test NEGATIVE NEGATIVE code = 12116-9) Nitrite, UA (test NEGATIVE NEGATIVE code = [...] code = NONE SEEN See_Comment [Autom ated 17086-8) message] The sy stem which generated this result transmitted reference range : < OR = 2 /HPF. Th e reference range was not used to interpret this result as normal/abnormal . Squamous epithelial NONE SEEN See_Comment [Automa aydin cells, UA (test code message ] The system = 69148-6) which generated this result transmitted reference range [...] URINE, code = 630-4) ROUTINE Micro Number: [id number] Test Status: Fi nal Specimen Source [...] from female s is a marker of genital tract colonization. I f this patient is , pleas e refer [...] RAC) Organization Information: Site ID: RGA Name: [facility] Address: [address] [place], [place] [address] Director: Rajinder Grant Lab Interpretation Abnormal (test code = 59410-8) [facility], WITH REFLEX TO [id number] 09:37:00 Test Item Value Reference Interpretation Comments Range Color, UA (test code YELLOW YELLOW = 5778-6) Appearance (test CLEAR CLEAR code = 5767-9) Specific gravity, 1.001-1.035 urine (test code = 5811-5) pH, urine (test code 5.0-8.0 = 5803-2) Glucose, urine (test NEGATIVE NEGATIVE code = 39369-3) Bilirubin, UA (test NEGATIVE NEGATIVE code = 5770-3) Ketones, UA (test NEGATIVE NEGATIVE code = 2514-8) Occult blood, urine NEGATIVE NEGATIVE (test code = 5794-3) Protein, UA (test NEGATIVE NEGATIVE code = 93460-0) Nitrite, UA (test NEGATIVE NEGATIVE code = [...] code = NONE SEEN See_Comment [Autom ated 79706-7) message] The sy stem which generated this result transmitted reference range : < OR = 2 /HPF. Th e reference range was not used to interpret this result as normal/abnormal . Squamous epithelial NONE SEEN See_Comment [Automa aydin cells, UA (test code message ] The system = 21551-0) which generated this result transmitted reference range [...] URINE, code = 630-4) ROUTINE Micro Number: [id number] Test Status: Fi nal Specimen Source [...] Erythromycin an d clindamycin are not recommended fo r treatment of urinary tract infections, but clindamycin may be useful for treatment in penicillin dusty rgic patients for rectovaginal colonization or for intrapartum prophylaxis if indicated. RAC (test code = Performing RAC) Organization Information: Site ID: RGA [facility] Address: [address] [place] [address] Director: Rajinder Grant Lab Interpretation Abnormal (test code = 16316-6) [facility], WITH REFLEX TO [id number] 09:37:00 Test Item Value Reference Interpretation Comments Range Color, UA (test code YELLOW YELLOW = 5778-6) Appearance (test CLEAR CLEAR code = 5767-9) Specific gravity, 1.001-1.035 urine (test code = 5811-5) pH, urine (test code 5.0-8.0 = 5803-2) Glucose, urine (test NEGATIVE NEGATIVE code = 17300-2) Bilirubin, UA (test NEGATIVE NEGATIVE code = 5770-3) Ketones, UA (test NEGATIVE NEGATIVE code = 2514-8) Occult blood, urine NEGATIVE NEGATIVE (test code = 5794-3) Protein, UA (test NEGATIVE NEGATIVE code = 25060-7) Nitrite, UA (test NEGATIVE NEGATIVE code = [...] code = NONE SEEN See_Comment [Autom ated 32423-8) message] The sy stem which generated this result transmitted reference range : < OR = 2 /HPF. Th e reference range was not used to interpret this result as normal/abnormal . Squamous epithelial NONE SEEN See_Comment [Automa aydin cells, UA (test code message ] The system = 50606-0) which generated this result transmitted reference range [...] URINE, code = 630-4) ROUTINE Micro Number: [id number] Test Status: Fi nal Specimen Source [...] = Performing RAC) Organization Information: Site ID: [facility] Address: [address] [place] [id number] Director: Rajinder Grant Lab Interpretation Abnormal (test code = 59441-0) [facility] [id number] 09:37:00 Test Item Value Reference Interpretation Comments Range Color, UA (test code YELLOW YELLOW = 5778-6) Appearance (test CLEAR CLEAR code = 5767-9) Specific gravity, 1.001-1.035 urine (test code = 5811-5) pH, urine (test code 5.0-8.0 = 5803-2) Glucose, urine (test NEGATIVE NEGATIVE code = 65585-3) Bilirubin, UA (test NEGATIVE NEGATIVE code = 5770-3) Ketones, UA (test NEGATIVE NEGATIVE code = 2514-8) Occult blood, urine NEGATIVE NEGATIVE (test code = 5794-3) Protein, UA (test NEGATIVE NEGATIVE code = 07785-0) Nitrite, UA (test NEGATIVE NEGATIVE code = [...] code = NONE SEEN See_Comment [Autom ated 87997-9) message] The sy stem which generated this result transmitted reference range : < OR = 2 /HPF. Th e reference range was not used to interpret this result as normal/abnormal . Squamous epithelial NONE SEEN See_Comment [Automa aydin cells, UA (test code message ] The system = 92557-9) which generated this result transmitted reference range [...] URINE, code = 630-4) ROUTINE Micro Number: [id number] Test Status: Fi nal Specimen Source : [...] RAC) Organization Information: Site ID: [facility] Name: [facility] Address: [address] [place] [id number] Director: Rajinder Grant Lab Interpretation Abnormal (test code = 41740-2) [facility] urinalysis [id number] 18:20:00 Test Item Value Reference Range Interpretation Comments Color urine, POC (test Straw code = 1655781) Clarity urine, POC (test Clear code = 3906129) Glucose urine, POC (test Negative Negative code = 7529839) Bilirubin urine, POC Negative Negative (test code = 4456965) Ketones urine, POC (test Negative Negative code = 4064902) Specific gravity urine, 1.005-1.030 POC (test code = 0397565) Blood urine, POC (test Trace Negative A code = 0773506) pH urine, POC (test code See_Comment [A utomated message] = 3138619) The system [employer] generated this result transmitted ref erence range: 5.0, 5.5 , 6.0, 6.5, 7.0, 7.5, 8.0, 8.5. The refere nce range was not u sed to interpret this result as normal/abnor mal. Protein urine, POC (test Negative Negative code = 9494255) Urobilinogen urine, POC <2.0 See_Comment [Au tomated message] (test code = 1752636) The sy stem which generated this result transmitted ref erence range: <=2.0. T he reference range was not used to int erpret this result as normal/abnormal . Nitrite urine, POC (test Negative Negative code = 6958220) Leukocyte esterase Negative Negative urine, POC (test code = 9261808) Lab Interpretation (test Abnormal code = 00487-4) [facility] urinalysis [id number] 18:20:00 Test Item Value Reference Range Interpretation Comments Color urine, POC (test Straw code = 9412297) Clarity urine, POC (test Clear code = 0350301) Glucose urine, POC (test Negative Negative code = 3760684) Bilirubin urine, POC Negative Negative (test code = 2017670) Ketones urine, POC (test Negative Negative code = 7274089) Specific gravity urine, 1.005-1.030 POC (test code = 7685567) Blood urine, POC (test Trace Negative A code = 9613899) pH urine, POC (test code See_Comment [A utomated message] = 0359970) The system [employer] generated this result transmitted ref erence range: 5.0, 5.5 , 6.0, 6.5, 7.0, 7.5, 8.0, 8.5. The refere nce range was not u sed to interpret this result as normal/abnor mal. Protein urine, POC (test Negative Negative code = 6352367) Urobilinogen urine, POC <2.0 See_Comment [Au tomated message] (test code = 0716829) The sy stem which generated this result transmitted ref erence range: <=2.0. T he reference range was not used to int erpret this result as normal/abnormal . Nitrite urine, POC (test Negative Negative code = 5664113) Leukocyte esterase Negative Negative urine, POC (test code = 7977508) Lab Interpretation (test Abnormal code = 34236-5) [facility] urinalysis [id number] 18:20:00 Test Item Value Reference Range Interpretation Comments Color urine, POC (test Straw code = 5857527) Clarity urine, POC (test Clear code = 1167990) Glucose urine, POC (test Negative Negative code = 5169388) Bilirubin urine, POC Negative Negative (test code = 4836133) Ketones urine, POC (test Negative Negative code = 8660806) Specific gravity urine, 1.005-1.030 POC (test code = 0614806) Blood urine, POC (test Trace Negative A code = 0240067) pH urine, POC (test code See_Comment [A utomated message] = 9582267) The system [employer] generated this result transmitted ref erence range: 5.0, 5.5 , 6.0, 6.5, 7.0, 7.5, 8.0, 8.5. The refere nce range was not u sed to interpret this result as normal/abnor mal. Protein urine, POC (test Negative Negative code = 0225137) Urobilinogen urine, POC <2.0 See_Comment [Au tomated message] (test code = 6511969) The sy stem which generated this result transmitted ref erence range: <=2.0. T he reference range was not used to int erpret this result as normal/abnormal . Nitrite urine, POC (test Negative Negative code = 8721263) Leukocyte esterase Negative Negative urine, POC (test code = 1033422) Lab Interpretation (test Abnormal code = 46335-1) [facility] urinalysis [id number] 18:20:00 Test Item Value Reference Range Interpretation Comments Color urine, POC (test Straw code = 0699261) Clarity urine, POC (test Clear code = 7764055) Glucose urine, POC (test Negative Negative code = 9660183) Bilirubin urine, POC Negative Negative (test code = 7952054) Ketones urine, POC (test Negative Negative code = 2509539) Specific gravity urine, 1.005-1.030 POC (test code = 5563430) Blood urine, POC (test Trace Negative A code = 5227379) pH urine, POC (test code See_Comment [A utomated message] = 0675704) The system [employer] generated this result transmitted ref erence range: 5.0, 5.5 , 6.0, 6.5, 7.0, 7.5, 8.0, 8.5. The refere nce range was not u sed to interpret this result as normal/abnor mal. Protein urine, POC (test Negative Negative code = 2144420) Urobilinogen urine, POC <2.0 See_Comment [Au tomated message] (test code = 1327283) The sy stem which generated this result transmitted ref erence range: <=2.0. T he reference range was not used to int erpret this result as normal/abnormal . Nitrite urine, POC (test Negative Negative code = 2092944) Leukocyte esterase Negative Negative urine, POC (test code = 0627000) Lab Interpretation (test Abnormal code = 68853-5) [facility] [Presence] in Respiratory specimen by LATESHA with probe [id number] 09:55:01 Test Item Value Reference Range Interpretation Comments SARS-CoV-2 (COVID-19) RNA Not detected Not-Detected [Presence] in Respiratory specimen by LATESHA with probe detection (test code = 52230-1) Whether patient is employed in a healthcare setting (test code = 09383-9) Whether the patient has symptoms related to condition of interest (test code = 57259-0) Patient was hospitalized because of this condition (test code = 42281-2) Whether the patient was admitted to intensive care unit (ICU) for condition of interest (test code = 91707-1) Whether patient resides in a congregate care setting (test code = 06952-1) [facility] (COVID-19) RNA [Presence] in Respiratory specimen by LATESHA with probe [id number] 03:07:44 Test Item Value Reference Range Interpretation Comments SARS-CoV-2 (COVID-19) RNA Not detected Not-Detected [Presence] in Respiratory specimen by LATESHA with probe detection (test code = 62040-2) Whether patient is employed in a healthcare setting (test code = 58098-3) Whether the patient has symptoms related to condition of interest (test code = 15825-5) Patient was hospitalized because of this condition (test code = 49477-2) Whether the patient was admitted to intensive care unit (ICU) for condition of interest (test code = 82998-2) Whether patient resides in a congregate care setting (test code = 02155-5) [facility]-CoV-2 (COVID-19) RNA [Presence] in Respiratory specimen by LATESHA with probe [id number] 02:34:50 Test Item Value Reference Range Interpretation Comments SARS-CoV-2 (COVID-19) RNA Not detected Not-Detected [Presence] in Respiratory specimen by LATESHA with probe detection (test code = 81633-8) Whether patient is employed in a healthcare setting (test code = 08478-0) Whether the patient has symptoms related to condition of interest (test code = 88670-7) Patient was hospitalized because of this condition (test code = 71616-2) Whether the patient was admitted to intensive care unit (ICU) for condition of interest (test code = 21026-4) Whether patient resides in a congregate care setting (test code = 50780-4) [facility]-CoV-2 (COVID-19) RNA [Presence] in Respiratory specimen by LATESHA with probe [id number] 22:46:50 Test Item Value Reference Range Interpretation Comments SARS-CoV-2 (COVID-19) RNA Not detected Not-Detected [Presence] in Respiratory specimen by LATESHA with probe detection (test code = 82065-3) [facility]-CoV-2 (COVID-19) RNA [Presence] in Respiratory specimen by LATESHA with probe [id number] 10:19:38 Test Item Value Reference Range Interpretation Comments SARS-CoV-2 (COVID-19) RNA Not detected Not-Detected [Presence] in Respiratory specimen by LATESHA with probe detection (test code = 27032-6) [facility]-CoV-2 (COVID-19) RNA [Presence] in Respiratory specimen by LATESHA with probe [id number] 00:17:03 Test Item Value Reference Range Interpretation Comments SARS-CoV-2 (COVID-19) RNA Not detected Not-Detected [Presence] in Respiratory specimen by LATESHA with probe detection (test code = 66055-0) [facility]-CoV-2 (COVID-19) RNA [Presence] in Respiratory specimen by LATESHA with probe [id number] 00:59:15 Test Item Value Reference Range Interpretation Comments SARS-CoV-2 (COVID-19) RNA Not detected Not-Detected [Presence] in Respiratory specimen by LATESHA with probe detection (test code = 57418-3) [place] [address]+ i-STAT [id number] 08:12:00 Test Item Value Reference [...] PELVIS WITHOUT CONTRAST, RENAL STONE PROTOCOL:Location code: [id number] HISTORY: Flank painCOMPARISON: CT abdomen and pelvis [...] Range Interpretation Comments COLOR (test code = [place] YELLOW A COLU) CLARITY (test code = [...] 11:03:05CT abdomen and pelvis with contrastLocation Code: [id number] HISTORY: Lower abdominal painCOMPARISON: NoneTechnique: Helical CT [...]
--- NOTE | 2022-04-06 16:36 | RAD REPORT ---
[facility] Protocol - 04/06/2022 4:14 pm CLINICAL HISTORY: mid low back pain COMPARISON: No comparisons TECHNIQUE: CT of the abdomen and pelvis was performed without contrast. All CT scans are performed using dose optimization technique as appropriate and may include automated exposure control or mA/KV adjustment according to patient size. FINDINGS: Lower chest: No acute abnormality. Liver: No acute abnormality or suspicious lesions. Biliary: No biliary ductal dilatation. Stomach: No significant focal abnormality. Duodenum: No significant focal abnormality. Pancreas: No significant abnormality. Spleen: No significant abnormality. Adrenal: No suspicious lesions. Kidney/ureter: No hydronephrosis. Punctate stone in lower pole left kidney. Punctate stone at the lef t UVJ. Retroperitoneum: No retroperitoneal adenopathy. Vascular: No aneurysm. Bowel: No significant focal abnormality. Normal appendix. Peritoneum: No ascites or free air. Bladder: Grossly unremarkable. Reproductive: No adnexal masses. Bones: No acute fracture. Other: n/a IMPRESSION: Punctate nonobstructing calculus at the left ureterovesical junction.
[2022-04-06 16:37] LABS: Urine Blood Negative (Negative); Urine Glucose Negative (Negative); Urine Protein Negative (Negative)
[2022-04-06 16:50] LABS: Absolute Lymphocytes (CBC) 1.8 K/uL (0.7-4.9); Hematocrit 41.2 % (36.0-45.0); Lymphocytes % 31.8 % (15.3-44.8); MCV 88.7 fL (80-100); MPV 7.4 fL (7.6-11.3); RBC Red Blood Cell Count 4.65 M/uL (3.86-4.86)
[2022-04-06 17:00] LABS: Urine Bacteria None Seen /HPF (<20); Urine RBC <5 /HPF (None Seen)
[2022-04-06 17:10] LABS: Albumin 4.3 g/dL (3.4-5.0); Bilirubin Total 0.3 mg/dL (0.2-1.0); Potassium 3.9 mmol/L (3.5-5.1); Protein, Total 8.1 g/dL (6.4-8.2)
--- NOTE | 2022-04-06 18:21 | ER ---
Nurse's Notes [facility] Name: Fany Meza Age: 51 yrs Sex: Female : 1970 Arrival Date: 04/06/2022 Time: 15:17 Bed IW3 Private MD: Diagnosis: Calculus of ureter-left;Abnormal results of liver function studies;Hypertensive heart disease without heart failure Presentation: 04/06 15:31 Chief complaint: Patient states: LAURA flank pain, urinary frequency, lower abdominal ld1 pain. Coronavirus screen: At this time, the client does not indicate any symptoms associated with coronavirus-19. Ebola Screen: No symptoms or risks identified at this time. Initial Sepsis Screen: Does the patient meet any 2 criteria? No. Patient's initial sepsis screen is negative. Does the patient have a suspected source of infection? No. Patient's initial sepsis screen is negative. Risk Assessment: Do you want to hurt yourself or someone else? Patient reports no desire to harm self or others. Onset of symptoms was April 06, 2022. 15:31 Method Of Arrival: Ambulatory ld1 15:31 Acuity: SHARAN 3 ld1 Triage Assessment: 15:31 General: Appears in no apparent distress. comfortable, Behavior is calm, cooperative, ld1 appropriate for age. Pain: Complains of pain in low back area Pain does not radiate. Pain currently is 8 out of 10 on a pain scale. Quality of pain is described as throbbing. EENT: No signs and/or symptoms were reported regarding the EENT system. Neuro: Level of Consciousness is awake, alert, obeys commands, Oriented to person, place, time, situation. Cardiovascular: Capillary refill < 3 seconds Patient's skin is warm and dry. Respiratory: Airway is patent Respiratory effort is even, unlabored. GI: Abdomen is round non-distended. : No signs and/or symptoms were reported regarding the genitourinary system. : Reports pain in bilateral flank(s), urgency, urinary frequency. Derm: No signs and/or symptoms reported regarding the dermatologic system. Historical: - Allergies: 15:33 No Known Allergies; ld1 - Home Meds: 15:33 amlodipine 5 mg tab 1 tab once daily [Active]; ld1 - PMHx: 15:33 cervical cancer; Hep C , in remission; Hypertensive disorder; ld1 - PSHx: 15:33 section; neck; ld1 - Immunization history:: Adult Immunizations up to date, Client reports receiving the 2nd dose of the Covid vaccine. - Social history:: Smoking status: Patient denies any tobacco usage or history of. Patient/guardian denies using alcohol. Screenin:27 Abuse screen: Denies threats or abuse. Denies injuries from another. Nutritional ld1 screening: No deficits noted. Tuberculosis screening: No symptoms or risk factors identified. Assessment: 18:27 Reassessment: See triage assessment. ld1 Vital Signs: 15:31 BP 141 / 115; Pulse 81; Resp 18; Temp 98.7(O); Pulse Ox 100% on R/A; Weight 79.38 kg; ld1 Height 5 ft. 4 in. (162.56 cm); Pain 6/10; 18:27 BP 139 / 106; Pulse 84; Resp 18; Pulse Ox 100% on R/A; ld1 15:31 Body Mass Index 30.04 (79.38 kg, 162.56 cm) ld1 ED Course: 15:17 Patient arrived in ED. mr 15:20 Nigel Oliver PA is PHCP. cp 15:20 Nigel Knight MD is Attending Physician. cp 15:31 Arm band placed on right wrist. ld1 15:33 Triage completed. ld1 16:15 CT Stone Protocol In Process Unspecified. EDMS 16:42 Inserted saline lock: 20 gauge in right antecubital area, using aseptic technique. zm Blood collected. 18:21 Darrell Funk MD is Referral Physician. cp 18:27 Patient has correct armband on for positive identification. Placed in gown. Bed in low ld1 position. Side rails up X2. Pulse ox on. NIBP on. Door closed. Noise minimized. 18:27 No provider procedures requiring assistance completed. IV discontinued, intact, ld1 bleeding controlled, No redness/swelling at site. Administered Medications: No medications were administered Medication: 18:27 VIS not applicable for this client. ld1 Outcome: 18:21 Discharge ordered by . cp 18:32 Discharged to home ambulatory. ld1 18:32 Condition: stable 18:32 Discharge instructions given to patient, Instructed on discharge instructions, follow up and referral plans. medication usage, Demonstrated understanding of instructions, follow-up care, medications, Prescriptions given X 3. 18:32 Patient left the ED. ld1 Signatures: Dispatcher [employer] EDMS Christina Cook mr Nigel Oliver PA PA cp Dibbern, Lauren, RN RN ld1 Rachna Reyes Corrections: (The following items were deleted from the chart) 15:34 15:31 Pulse 81bpm; Resp 18bpm; Pulse Ox 100% RA; Temp 98.7F Oral; 79.38 kg; Height 5 ld1 ft. 4 in.; BMI: 30.0; Pain 6/10; ld1 17:20 17:19 Inserted saline lock: 20 gauge in right antecubital area, using aseptic zm technique. Blood collected.
--- NOTE | 2022-04-06 18:21 | EDPHYS ---
Physician Documentation [facility] Name: Fany Meza Age: 51 yrs Sex: Female : 1970 Arrival Date: 04/06/2022 Time: 15:17 Bed IW3 Private MD: ED Physician Nigel Knight HPI: 04/06 15:45 This 51 yrs old Female presents to ER via Ambulatory with complaints of Urinary cp Problem, Back Pain, Abdominal Pain. 15:45 The patient presents with urinary symptoms, frequency, urgency. Onset: The cp symptoms/episode began/occurred today. Associated signs and symptoms: Pertinent negatives: constipation, diarrhea, fever, hematuria, vaginal bleeding, vaginal discharge, vomiting. Severity of symptoms: in the emergency department the symptoms are unchanged, despite home interventions. Patient reports she was sent to ED for evaluation of urinary frequency. Patient reports urine tested at urgent care was negative for infection. Historical: - Allergies: 15:33 No Known Allergies; ld1 - Home Meds: 15:33 amlodipine 5 mg tab 1 tab once daily [Active]; ld1 - PMHx: 15:33 cervical cancer; Hep C , in remission; Hypertensive disorder; ld1 - PSHx: 15:33 section; neck; ld1 - Immunization history:: Adult Immunizations up to date, Client reports receiving the 2nd dose of the Covid vaccine. - Social history:: Smoking status: Patient denies any tobacco usage or history of. Patient/guardian denies using alcohol. ROS: 15:50 Constitutional: Negative for body aches, chills, fever, poor PO intake. cp 15:50 Eyes: Negative for injury, pain, redness, and discharge. cp 15:50 ENT: Negative for drainage from ear(s), ear pain, sore throat, difficulty swallowing, difficulty handling secretions. 15:50 Cardiovascular: Negative for chest pain, palpitations. 15:50 Respiratory: Negative for cough, shortness of breath, wheezing. 15:50 Abdomen/GI: Positive for abdominal pain, of the suprapubic area, Negative for vomiting, diarrhea, constipation. 15:50 Back: Positive for pain at rest, of the left low back, Negative for injury or acute deformity. 15:50 : Positive for urinary frequency, Negative for vaginal bleeding, vaginal discharge. 15:50 Skin: Negative for rash. 15:50 Neuro: Negative for altered mental status, dizziness, headache, numbness, weakness. 15:50 All other systems are negative. Exam: 15:55 Constitutional: The patient appears in no acute distress, alert, awake, non-toxic, well cp developed, well nourished. 15:55 Head/Face: Normocephalic, atraumatic. cp 15:55 Eyes: Periorbital structures: appear normal, Conjunctiva: normal, no exudate, no injection, Sclera: no appreciated abnormality, Lids and lashes: appear normal, bilaterally. 15:55 ENT: External ear(s): are unremarkable, Nose: is normal, Mouth: Lips: moist, Oral mucosa: moist, Posterior pharynx: Airway: no evidence of obstruction, patent. 15:55 Chest/axilla: Inspection: normal. 15:55 Cardiovascular: Rate: normal. 15:55 Respiratory: the patient does not display signs of respiratory distress, Respirations: normal, no use of accessory muscles, no retractions, labored breathing, is not present, Breath sounds: are clear throughout, no decreased breath sounds, no stridor, no wheezing. 15:55 Abdomen/GI: Inspection: abdomen appears normal, Palpation: soft, in all quadrants, mild abdominal tenderness, in the suprapubic area and left lower quadrant, rebound tenderness, is not appreciated, involuntary guarding, is not appreciated. 15:55 Back: pain, that is mild, of the left low back, ROM is normal. 15:55 Skin: cellulitis, is not appreciated, no rash present. 15:55 Neuro: Motor: moves all fours, strength is normal, Gait: is steady. Vital Signs: 15:31 BP 141 / 115; Pulse 81; Resp 18; Temp 98.7(O); Pulse Ox 100% on R/A; Weight 79.38 kg; ld1 Height 5 ft. 4 in. (162.56 cm); Pain 6/10; 18:27 BP 139 / 106; Pulse 84; Resp 18; Pulse Ox 100% on R/A; ld1 15:31 Body Mass Index 30.04 (79.38 kg, 162.56 cm) ld1 MDM: 15:37 Patient medically screened. cp 15:39 Patient medically screened. stephen 16:00 Differential diagnosis: ovarian cyst, pelvic inflammatory disease, urinary tract cp infection, kidney stone. 18:21 Data reviewed: vital signs, nurses notes, lab test result(s), radiologic studies, CT cp scan. 18:21 Counseling: I had a detailed discussion with the patient and/or guardian regarding: the cp historical points, exam findings, and any diagnostic results supporting the discharge/admit diagnosis, lab results, radiology results, to return to the emergency department if symptoms worsen or persist or if there are any questions or concerns that arise at home. Response to treatment: the patient's symptoms have mildly improved after treatment, and as a result, I will discharge patient. ED course: VSS. Patient appears non-toxic. Discussed results of labs and CT abdomen/pelvis. Will discharge to home for continued monitoring. 04/06 15:39 Order name: CBC with Diff; Complete Time: 17:08 04/06 17:08 Interpretation: Normal except: MPV 7.4; MN% 13.3. 04/06 15:39 Order name: CMP; Complete Time: 17:13 04/06 17:13 Interpretation: Normal except: CL 111; AST 125; ALT 178; GLOB 3.8. 04/06 15:39 Order name: Lipase; Complete Time: 17:13 04/06 15:39 Order name: Urine Microscopic Only; Complete Time: 17:08 04/06 17:22 Interpretation: Reviewed. 04/06 15:39 Order name: CT Stone Protocol; Complete Time: 16:42 04/06 16:37 Order name: Urine Dipstick-Ancillary; Complete Time: 16:42 EDNE 04/06 17:16 Interpretation: Reviewed. 04/06 15:39 Order name: IV Saline Lock; Complete Time: 17:20 04/06 15:39 Order name: Labs collected and sent; Complete Time: 17:20 04/06 15:39 Order name: Urine Dipstick-Ancillary (obtain specimen); Complete Time: 17:20 04/06 18:20 Order name: Vital Signs: please update; Complete Time: 18:27 cp Administered Medications: No medications were administered Disposition Summary: 04/06/22 18:21 Discharge Ordered Location: Home cp Problem: new cp Symptoms: have improved cp Condition: Stable cp Diagnosis - Calculus of ureter - left cp - Abnormal results of liver function studies cp - Hypertensive heart disease without heart failure cp Followup: cp - With: Darrell Funk MD - When: 2 - 3 days - Reason: pain continues Discharge Instructions: - Discharge Summary Sheet cp - Hypertension, Adult cp - Kidney Stones cp - Renal Colic cp Forms: - Medication Reconciliation Form cp - Thank You Letter cp - Antibiotic Education cp - Prescription Opioid Use cp Prescriptions: - Flomax 0.4 mg Oral capsule - take 1 capsule by ORAL route once daily As needed 1/2 hour following the same cp meal each day; 5 capsule; Refills: 0, Product Selection Permitted - Zofran 4 mg Oral Tablet - take 1 tablet by ORAL route every 12 hours As needed; 20 tablet; Refills: 0, cp Product Selection Permitted - Tramadol 50 mg Oral Tablet - take 1 tablet by ORAL route every 8 hours as needed; 12 tablet; Refills: 0, cp Product Selection Permitted Signatures: Dispatcher [employer] EDNigel Metz MD MD cha Page, Corey, PA PA cp Melody Baez RN RN ld1 Corrections: (The following items were deleted from the chart) 04/07 15:57 04/06 15:45 Patient reports she was sent to ED for evaluation of urinary frequency. cp Urine tested at urgent care was negative for infection. cp
[2022-04-06] MEDS ORDERED: TAMSULOSIN 0.4 MG SR CAP ONE (18:31)
[2022-04-06] MEDS ORDERED: ONDANSETRON 4 MG (ODT) TAB ONE (18:31)
[2022-04-06 18:37] VITALS: TEMP 98.7; O2SAT 100
[2022-04-06 18:38] VITALS: BP 139/106
== END 2022-04-06 18:32 | disposition home or self-care (01) ==
LOC: ER 15:03
DX: N20.1 Calculus of ureter (principal); R94.5 Abnormal results of liver function studies; I11.9 Hypertensive heart disease without heart failure
CPT/HCPCS: 85025; 36415; 83690; 80053; 76377; 74176; Q0162; 81003; 81015; 99284

== ENCOUNTER 2022-04-15 20:13 | Emergency (ER) | payer OTHER ==
--- OUTSIDE RECORDS SUMMARY | 2022-04-15 20:27 | XMS REPORT | Continuity of Care Document ---
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 [id number] tablet (25 st 25 mg 00:00: 00:00 3D mg total) Hospit a tablet 00 :00 by mouth 3 l (three) times a day as needed for dizziness for up to 30 days. meclizine 2021-0 2021- No 25mg Q.[id number] Take 1 [facility] (ANTIVERT) 17 -10 [id number] tablet (25 st 25 mg 00:00: 00:00 3D mg total) Hospit a tablet 00 :00 by mouth 3 l (three) times a day as needed for dizziness for up to 30 days. meclizine 2021- No 25mg Q.[id number] Take 1 [facility] (ANTIVERT) 17 -10 [id number] tablet (25 st 25 mg 00:00: 00:00 3D mg total) Hospit a tablet 00 :00 by mouth 3 l (three) times a day as needed for dizziness for up to 30 days. pregabalin 2021-0 2021- No 50mg Q.5D Take 1 [facility] (Lyrica) 50 08-14- capsule st MG capsule 00:00: 00:00 (50 mg [facility] 00 :00 total) by l mouth 2 (two) times a day for 60 days. pregabalin 2-0 2- No 50mg Q.5D Take 1 [facility] (Lyrica) 50 08-14- capsule st MG capsule 00:00: 00:00 (50 mg [facility] 00 :00 total) by l mouth 2 (two) times a day for 60 days. pregabalin 2-0 2022- No 50mg Q.5D Take 1 [facility] (Lyrica) 50 5-05 06-[address] MG capsule 00:00: 00:00 (50 mg [facility] 00 :00 total) by l mouth 2 (two) times a day for 60 days. pregabalin 2021-0 2- No 50mg Q.5D Take 1 [facility] [...] times a day for 60 days. doxycycline 2021-2021- No 100mg Take 100 [facility] (VIBRAMYCIN 4-30 06-[address] ) 100 MG 00:00: 00:00 mouth. Hospit a capsule 00 :00 l metroNIDAZO 2021-0 2- No 500mg Q.5D Take 500 [facility] (FLAGYL) 4-30 06-[address] 500 MG 00:00: 00:00 mouth 2 [facility]ospita tablet 00 :00 (two) l times a day. doxycycline 2021-0 2021- No 100mg Take 100 [facility] (VIBRAMYCIN 4-30 06-[address] ) 100 MG 00:00: 00:00 mouth. Hospit a capsule 00 :00 l metroNIDAZO 2021-0 2- No 500mg Q.5D Take 500 [facility] (FLAGYL) 4-30 06-[address] 500 MG 00:00: 00:00 mouth 2 [facility]ospita tablet 00 :00 (two) l times a day. doxycycline 2021-0 2- No 100mg Take 100 [facility] (VIBRAMYCIN 4-30 06-[address] ) 100 MG 00:00: 00:00 mouth. Hospit a capsule 00 :00 l metroNIDAZO 2-0 2- No 500mg Q.5D Take 500 [facility] (FLAGYL) 4-30 06-[address] 500 MG 00:00: 00:00 mouth 2 [facility]osp[facility] tablet 00 :00 (two) l times a day. doxycycline 2021-2021- No 100mg Take 100 [facility] (VIBRAMYCIN 4-30 06-[address] ) 100 MG 00:00: 00:00 mouth. Hospit a capsule 00 :00 l metroNIDAZO 2021-2021- No 500mg Q.5D Take 500 [facility] (FLAGYL) 4-30 06-[address] 500 MG 00:00: 00:00 mouth 2 [facility]ospita tablet 00 :00 (two) l times a day. doxycycline 2021-2021- No 100mg Take 100 [facility] (VIBRAMYCIN 4-30 06-[address] ) 100 MG 00:00: 00:00 mouth. Hospit a capsule 00 :00 l metroNIDAZO 2021-2021- No 500mg Q.5D Take 500 [facility] (FLAGYL) 4-30 06-[address] 500 MG 00:00: 00:00 mouth 2 [facility]ospita tablet 00 :00 (two) l times a day. acetaminoph No 1{tbl} Q6H Take 1-2 [facility] en-codeine 4-27 05-[address] (TYLENOL 00:00: 04:59 mouth [facility]osp[facility] WITH 00 :00 every 6 l CODEINE #3) (six) 300-30 mg hours as per tablet needed for moderate pain for up to 5 days .acute pain. acetaminoph 1{tbl} Q6H Take 1-2 [facility] en-codeine 4-27 05-[address] (TYLENOL 00:00: 04:59 mouth [facility] WITH 00 :00 every 6 l CODEINE #3) (six) 300-30 mg hours as per tablet needed for moderate pain for up to 5 days .acute pain. acetaminoph No 1{tbl} Q6H Take 1-2 [facility] en-codeine 4-27 05-[address] (TYLENOL 00:00: 04:59 mouth [facility] WITH 00 :00 every 6 l CODEINE #3) (six) 300-30 mg hours as per tablet needed for moderate pain for up to 5 days .acute pain. acetaminoph No 1{tbl} Q6H Take 1-2 [facility] en-codeine 08-06 05-[address] (TYLENOL 00:00: 04:59 mouth [facility] WITH 00 :00 every 6 l CODEINE #3) (six) 300-30 mg hours as per tablet needed for moderate pain for up to 5 days .acute pain. acetamin[place] 2021- [place] [id number] 1{tbl} Q6H Take 1-2 [facility] en-codeine 08-06 05-[address] (TYLENOL 00:00: 04:59 mouth [facility] WITH 00 :00 every 6 l CODEINE #3) (six) 300-30 mg hours as per tablet needed for moderate pain for up to 5 days .acute pain. amoxicillin 2021- No [id number] 500mg Q.5D Take 1 [facility] (AMOXIL) 07-[address] 500 MG 00:00: 04:59 (500 mg [facility]ospita tablet 00 :00 total) by l mouth 2 (two) times a day for 7 days. amoxicillin 2021- No [id number] 500mg Q.5D Take 1 [facility] (AMOXIL) 07-[address] 500 MG 00:00: 04:59 (500 mg [facility]osp[facility] tablet 00 :00 total) by l mouth 2 (two) times a day for 7 days. amoxicillin 2021- No [id number] 500mg Q.5D Take 1 [facility] (AMOXIL) 07-[address] 500 MG 00:00: 04:59 (500 mg [facility]osp[facility] tablet 00 :00 total) by l mouth 2 (two) times a day for 7 days. amoxicillin 2021- No [id number] 500mg Q.5D Take 1 [facility] (AMOXIL) 07-[address] 500 MG 00:00: 04:59 (500 mg [facility]osp[facility] tablet 00 :00 total) by l mouth 2 (two) times a day for 7 days. amoxicillin 2021- No [id number] 500mg Q.5D Take 1 [facility] (AMOXIL) 07-24 [...] :00 by mouth l daily. amLODIPine 2021-0 202- No 5mg QD Take 1 [facility] (NORVASC) 5 4-05 06-02 tablet (5 st mg tablet 00:00: 00:00 mg total) [facility] 00 :00 by mouth l daily. amLODIPine 2021-0 2021- No 5mg QD Take 1 [facility] (NORVASC) 5 4-05 06-02 tablet (5 st mg tablet 00:00: 00:00 mg total) [facility] 00 :00 by mouth l daily. amLODIPine 2021-0 2- No 5mg QD Take 1 [facility] (NORVASC) 5 4-08 15-02 tablet (5 st mg tablet 00:00: 00:00 mg total) [facility] 00 :00 by mouth l daily. amLODIPine 2021- No 5mg QD Take 1 [facility] (NORVASC) 5 4- 06-02 tablet (5 st mg tablet 00:00: 00:00 mg total) [facility] 00 :00 by mouth l daily. naproxen 2021-0 2021- No 500mg Q.5D Take 1 [facility] (Naprosyn) 3-30 05-[address] 500 MG 00:00: 00:00 (500 mg [facility]ospita tablet 00 :00 total) by l mouth 2 (two) times a day with meals. naproxen 2021-0 2022- No 500mg Q.5D Take 1 Meth[facility] [...] times a day with meals. naproxen 2021-0 2- No 500mg Q.5D Take 1 [facility] (Naprosyn) 3-30 05-[address] 500 MG 00:00: 00:00 (500 mg [facility]osp[facility] tablet 00 :00 total) by l mouth 2 (two) times a day with meals. ibuprofen 2021-0 2- No 800mg Q6H Take 1 [facility] (ADVIL) 800 3-21 04-[address] [facility] tablet 00:00: 04:59 (800 [...] Q6H Take 1 [facility] (ADVIL) 800 06-30-[address] MG tablet 00:00: 04:59 (800 [...] (eight) hours for 30 days. ibuprofen 2021-0 2021- No 800mg Q6H Take 1 [facility] (ADVIL) 800 06-30- tablet st MG tablet 00:00: 04:59 (800 mg [facility] 00 :00 total) by l mouth every 6 (six) hours as needed for mild pain for up to 30 days. benzonatate 2021-0 2- No 100mg Q8H Take 1 [facility] (TESSALON) 3-[address] 100 MG 00:00: 04:59 (100 mg [facility]ospita capsule 00 :00 total) by l mouth every 8 (eight) hours for 30 days. ibuprofen 2021-0 2- No 800mg Q6H Take 1 [facility] (ADVIL) 800 06-30-[address] MG tablet 00:00: 04:59 (800 [...] Q6H Take 1 [facility] (ADVIL) 800 06-[address] MG tablet 00:00: 04:59 (800 [...] hours for 30 days. amoxicillin 2021- No [id number] 500mg Q.5D Take 1 [facility] (AMOXIL) 06-[address] 500 MG 00:00: 04:59 (500 mg [facility]osp[facility] tablet 00 :00 total) by l mouth in the morning and 1 tablet (500 mg total) before bedtime. Do all this for 7 days. amoxicillin No [id number] 500mg Q.5D Take 1 [facility] (AMOXIL) 06-[address] 500 MG 00:00: 04:59 (500 mg [facility]osp[facility] tablet 00 :00 total) by l mouth in the morning and 1 tablet (500 mg total) before bedtime. Do all this for 7 days. amoxicillin No [id number] 500mg Q.5D Take 1 [facility] (AMOXIL) 06-[address] 500 MG 00:00: 04:59 (500 mg [facility]osp[facility] tablet 00 :00 total) by l mouth in the morning and 1 tablet (500 mg total) before bedtime. Do all this for 7 days. amoxicillin No [id number] 500mg Q.5D Take 1 [facility] (AMOXIL) 06-[address] 500 MG 00:00: 04:59 (500 mg [facility]osp[facility] tablet 00 :00 total) by l mouth in the morning and 1 tablet (500 mg total) before bedtime. Do all this for 7 days. amoxicillin No [id number] 500mg Q.5D Take 1 [facility] (AMOXIL) 06-[address] 500 MG 00:00: 04:59 (500 mg [facility]osp[facility] tablet 00 :00 total) by l mouth in the morning and 1 tablet (500 mg total) before bedtime. Do all this for 7 days. naproxen 2022-0 2022- No 500mg Q.5D Take 1 [facility] (Naprosyn) 06-[address] 500 MG 00:00: 00:00 (500 mg [facility]osp[facility] tablet 00 :00 total) by l mouth 2 (two) times a day with meals. naproxen 2021-0 2022- No 500mg Q.5D Take 1 [facility] (Naprosyn) 06-[address] 500 MG 00:00: 00:00 (500 mg [facility]osp[facility] tablet 00 :00 total) by l mouth 2 (two) times a day with meals. naproxen 2021-0 2022- No 500mg Q.5D Take 1 [facility] (Naprosyn) 06-[address] 500 MG 00:00: 00:00 (500 mg [facility]osp[facility] tablet 00 :00 total) by l mouth 2 (two) times a day with meals. naproxen 2021-0 2- No 500mg Q.5D Take 1 [facility] (Naprosyn) 06-[address] 500 MG 00:00: 00:00 (500 mg [facility]osp[facility] tablet 00 :00 total) by l mouth 2 (two) times a day with meals. naproxen 2021-0 2- No 500mg Q.5D Take 1 [facility] (Naprosyn) 06-[address] 500 MG 00:00: 00:00 (500 mg [facility]osp[facility] tablet 00 :00 total) by l mouth 2 (two) times a day with meals. amLODIPine 2022-0 2022- No [facility] (NORVASC) 05-15 st 2.5 mg 00:00: 00:00 Hospita tablet 00 :00 l amLODIPine 2022-0 2022- No [facility] (NORVASC) 05-15 st 2.5 mg 00:00: 00:00 [facility]ospita tablet 00 :00 l amLODIPine 2022-0 2022- No [facility] (NORVASC) 05-15 st 2.5 mg 00:00: 00:00 [facility]ospita tablet 00 :00 l amLODIPine 2022-0 2022- No [facility] (NORVASC) 2-03 04-05 st 2.5 mg 00:00: 00:00 [facility]ospita tablet 00 :00 l amLODIPine 2021-0 2021- No [facility] (NORVASC) 2-05 st 2.5 mg 00:00: 00:00 Hospita tablet 00 :00 l HYDROcodone 2021-0 2021- No [id number] 1{tbl} Q6H Take 1 [facility] -acetaminop 1-04 05-[address] hen (MixifyNV) 00:00: 05:59 mouth [facility] 5-325 mg 00 :00 every 6 l per tablet (six) hours as needed for moderate pain for up to 5 days .acute pain. Max Daily Amount: 4 tablets HYDROcodone 2021-0 2021- No [id number] 1{tbl} Q6H Take 1 [facility] -acetaminop 1-04 05-[address] [facility] (WhoKnows) 00:00: 05:59 mouth [facility] 5-325 mg 00 :00 every 6 l per tablet (six) hours as needed for moderate pain for up to 5 days .acute pain. Max Daily Amount: 4 tablets HYDROcodone 2021-0 2021- No [id number] 1{tbl} Q6H Take 1 [facility] -acetaminop 1-04 05-[address] [facility] (WhoKnows) 00:00: 05:59 mouth [facility] 5-325 mg 00 :00 every 6 l per tablet (six) hours as needed for moderate pain for up to 5 days .acute pain. Max Daily Amount: 4 tablets HYDROcodone 2021-0 2021- [place] [id number] 1{tbl} Q6H Take 1 [facility] -acetaminop 1-04 05-[address] hen (WhoKnows) 00:00: 05:59 mouth [facility] 5-325 mg 00 :00 every 6 l per tablet (six) hours as needed for moderate pain for up to 5 days .acute pain. Max Daily Amount: 4 tablets HYDROcodone 2-0 2021- No [id number] 1{tbl} Q6H Take 1 [facility] -acetaminop 1-23 -[address] [facility] (WhoKnows) 00:00: 05:59 mouth [facility] 5-325 mg [...] times 5 days. All with food. predniSONE 2-0 2- No 2 PO [facility] (DELTASONE) 04-[address] 20 mg 00:00: 05:59 followed Hospita tablet 00 :00 by one PO l BID times 5 days. All with food. predniSONE 2-0 2- No 2 PO [facility] (DELTASONE) 04-[address] 20 mg 00:00: 05:59 followed [facility]ospita tablet 00 :00 by one PO l BID times 5 days. All with food. predniSONE 2021-0 2- No 2 PO [facility] (DELTASONE) 04-[address] 20 mg 00:00: 05:59 followed [facility]ospita tablet 00 :00 by one PO l BID times 5 days. All with food. predniSONE 2-0 2- No 2 PO [facility] (DELTASONE) 04-[address] 20 mg 00:00: 05:59 followed [facility]ospita tablet 00 :00 by one PO l BID times 5 days. All with food. ibuprofen 2021-0 2- No 600mg Q6H Take [...] Take 1 [facility] (ADVIL) 600 04-12 03-[address] MG tablet 00:00: 00:00 (600 mg [facility] 00 :00 total) by l mouth every 6 (six) hours as needed for mild pain for up to 30 doses. ibuprofen No 600mg Q6H Take 1 [facility] [...] to 5 [place] [id number] 50mg Q6H Take 1 [facility] (ULTRAM) 50 04-12 tablet (50 s t mg tablet 00:00: 00:00 mg total) [facility] 00 :00 by mouth l every 6 (six) hours as needed for moderate pain for up to 5 days [place] [id number] 50mg Q6H Take 1 [facility] (ULTRAM) 50 04-12 tablet (50 s t mg tablet 00:00: 00:00 mg total) [facility] 00 :00 by mouth l every 6 (six) hours as needed for moderate pain for up to 5 days [place] [id number] 50mg Q6H Take 1 [facility] (ULTRAM) 50 04-12 tablet (50 s t mg tablet 00:00: 00:00 mg total) [facility] 00 :00 by mouth l every 6 (six) hours as needed for moderate pain for up to 5 days [place] [id number] 50mg Q6H Take 1 [facility] (ULTRAM) [...] 40mg QD Take 1 [facility] e 0-04 03- tablet (40 st (PROTONIX) 00:00: 05:59 mg [...] as needed for Itching or Anxiety. baclofen 2019- Yes Neck pain 10mg Take 1 [facility] (LIORESAL) 9-24 tablet by [facility] 10 mg 00:00: mouth 2 tablet 00 times daily as needed (muscle spasms) STOP cyclobenza kasia (FLEXERIL) 10 mg tablet. baclofen 2019-0 Yes Neck pain 10mg Take 1 [facility] (LIORESAL) 9-24 tablet by [facility] 10 mg 00:00: mouth 2 tablet 00 times daily as needed (muscle spasms) STOP cyclobenza kasia (FLEXERIL) 10 mg tablet. baclofen 2020-0 Yes Neck pain 10mg Take 1 [facility] (LIORESAL) 9-24 tablet by [facility] 10 mg 00:00: mouth 2 tablet 00 times daily as needed (muscle spasms) STOP cyclobenza kasia (FLEXERIL) 10 mg tablet. baclofen 2020-0 Yes Neck pain 10mg Take 1 [facility] (LIORESAL) 9-24 tablet by [facility] 10 mg 00:00: mouth 2 tablet 00 times daily as needed (muscle spasms) STOP cyclobenza kasia (FLEXERIL) 10 mg tablet. baclofen 2020-0 Yes Neck pain 10mg Take 1 [facility] (LIORESAL) 9-24 tablet by [facility] 10 mg 00:00: mouth 2 tablet 00 [...] tablet by mouth 2 times daily.. varenicline 2020-0 Yes Encounter Start Timoteo (CHANTIX) 09-11 for [...] tablet by mouth 2 times daily.. varenicline 2020-0 Yes Encounter Start Timoteo (CHANTIX) 09-11 for [...] tablet by mouth 2 times daily.. varenicline 2020-0 Yes Encounter Start Timoteo (CHANTIX) 09-11 for [...] tablet by mouth 2 times daily.. varenicline 2020-0 Yes Encounter Start Timoteo (CHANTIX) 09-11 for smoking taking H ealth 0.5 mg 00:00: cessation this tablet 00 counseling medication 1 week prior to setting a quit date for smoking. Stop smoking on day 8.Days 1 to 3: take 1 tablet once dailyDays 4 to 7: take 1 tablet twice daily. varenicline 2020-0 Yes Encounter Start Mahmood (CHANTIX) 1 09-11 for smoking taking Health [...] 8 hours as needed for Pain. MULTIVITAMI 2018-0 Yes Take by [facility] ris N (DAILY 9-24 mouth. Health VITAMIN OR) 08:09: 11 sulfamethox 2018-0 Yes 1{tbl} Q.5D Take 1 [facility]ris azole-trime 9-24 tablet by [facility] thoprim 08:09: mouth 2 (BACTRIM 11 times DS) 800-160 daily. mg per tablet MULTIVITAMI 2019-0 Yes Take by Tom ris N (DAILY 9-24 mouth. Health VITAMIN OR) 08:09: 11 sulfamethox 2019-0 Yes 1{tbl} Q.5D Take 1 [facility] azole-trime 9-24 tablet by [facility] thoprim 08:09: mouth 2 (BACTRIM 11 times DS) 800-160 daily. mg per tablet MULTIVITAMI 2019-0 Yes Take by Tom ris N (DAILY 9-24 mouth. Health VITAMIN OR) 08:09: 11 sulfamethox 2019-0 Yes 1{tbl} Q.5D Take 1 [facility] azole-trime 9-24 tablet by [facility] thoprim 08:09: mouth 2 (BACTRIM 11 times DS) 800-160 daily. mg per tablet MULTIVITAMI 2019-0 Yes Take by Tom ris N (DAILY 9-24 mouth. Health VITAMIN OR) 08:09: 11 sulfamethox 2019-0 Yes 1{tbl} Q.5D Take 1 [facility] azole-trime 9-24 tablet by [facility] thoprim 08:09: mouth 2 (BACTRIM 11 times DS) 800-160 daily. mg per tablet MULTIVITAMI 2019-0 Yes Take by Tom ris N (DAILY 9-24 mouth. Health VITAMIN OR) 08:09: 11 sulfamethox 2019-0 Yes 1{tbl} Q.5D Take 1 [facility] azole-trime 9-24 tablet [facility]: mouth 2 (BACTRIM 11 times DS) [...] weekly. vaginal cream silver Yes Desquamated Apply Tom ris sulfADIAZIN 4-29 skin topically [facility] E 00:00: to (SILVADENE) 00 radiated 1 % topical area up to cream three times daily and after each bath.. silver 2014- Yes Desquamated Apply Tom ris sulfADIAZIN 4-29 skin topically [facility]a [facility] E 00:00: to (SILVADENE) 00 radiated 1 % topical area up to cream three times daily and after each bath.. silver Yes Desquamated Apply Tom ris sulfADIAZIN 4-29 skin topically Hea lth E 00:00: to (SILVADENE) 00 radiated 1 % topical area up to cream three times daily and after each bath.. silver Yes Desquamated Apply Tom ris sulfADIAZIN 4-29 [...] 6 hours as needed for Pain. ibuprofen 2014-0 Yes Cervical 400mg Take 2 H arris (MOTRIN IB) 2-13 cancer tablets by Health 200 mg 00:00: mouth tablet 00 every 6 hours as needed for Pain. ibuprofen 2014-0 Yes Cervical 400mg Take 2 H [facility]is (MOTRIN IB) 2-13 cancer tablets by Health 200 mg 00:00: mouth tablet 00 every 6 hours as needed for Pain. ibuprofen 2014- Yes Cervical 400mg Take 2 H arris (MOTRIN IB) 2-13 cancer tablets by Health 200 mg 00:00: mouth tablet 00 every 6 hours as needed for Pain. ibuprofen 2015-0 Yes Cervical 400mg Take 2 H arris (MOTRIN IB) 2-13 cancer tablets by Health 200 mg 00:00: mouth tablet 00 every 6 hours as needed for Pain. Immunizations Ordered Immunization Filled Immunization Date Status Commen ts Source Name Name FLUCELVAX QUAD 2021-02-[address] 00:00:00 [facility] FLUCELVAX QUAD PF 2021-02-[address] 00:00:00 [facility] FLUCELVAX QUAD 2021-02-[address] 00:00:00 [facility] FLUCELVAX QUAD 2021-02-[address] 00:00:00 [facility] FLUCELVAX QUAD 2021-02-[address] 00:00:00 [facility] PFIZER COVID-19 MRNA 2020-08-05 Completed [facility] VACCINATION 00:00:00 [facility] PFIZER COVID-19 MRNA 2020-08-05 Completed [facility] VACCINATION 00:00:00 [facility] PFIZER COVID-19 MRNA 2020-08-05 Completed [facility] VACCINATION 00:00:00 [facility] PFIZER COVID-19 MRNA 2020-08-05 Completed [facility] VACCINATION 00:00:00 [facility] PFIZER COVID-19 MRNA 2020-08-05 Completed [facility] VACCINATION 00:00:00 [facility] PFIZER COVID-19 MRNA 2020-07-08 Completed [facility] VACCINATION 00:00:00 [facility] PFIZER COVID-19 MRNA 2020-07-08 Completed [facility] VACCINATION 00:00:00 [facility] PFIZER COVID-19 MRNA 2020-07-08 Completed [facility] VACCINATION 00:00:00 [facility] PFIZER COVID-19 MRNA 2020-07-08 Completed [facility] VACCINATION 00:00:00 [facility] PFIZER COVID-19 MRNA 2020-07-08 Completed [facility] VACCINATION 00:00:00 [facility] Influenza, 2020-03-12 Completed [facility] Vaccine<FLUCELVAX>(M 00:00:00 ulti-Dose) Tdap (Tetanus 2020-03-12 Completed [facility] th Toxoid, Reduced 00:00:00 Diphtheria Toxoid And Acellular Pertussis, Absorbed) Influenza, 2020-03-12 Completed [facility] Vaccine<FLUCELVAX>(M 00:00:00 ulti-Dose) Tdap (Tetanus 2020-03-12 Completed [facility] th Toxoid, Reduced 00:00:00 Diphtheria Toxoid And Acellular Pertussis, Absorbed) Influenza, 2020-03-12 Completed [facility] Vaccine<FLUCELVAX>(M 00:00:00 ulti-Dose) Tdap (Tetanus 2020-03-12 Completed [facility] th Toxoid, Reduced 00:00:00 Diphtheria Toxoid And Acellular Pertussis, Absorbed) Influenza, 2020-03-12 Completed [facility] Vaccine<FLUCELVAX>(M 00:00:00 ulti-Dose) Tdap (Tetanus 2020-03-12 Completed [facility] th Toxoid, Reduced 00:00:00 Diphtheria Toxoid And Acellular Pertussis, Absorbed) Influenza, 2020-03-12 Completed [facility] Vaccine<FLUCELVAX>(M 00:00:00 ulti-Dose) Tdap (Tetanus 2020-03-12 Completed [facility] Toxoid, Reduced 00:00:00 Diphtheria Toxoid And Acellular Pertussis, Absorbed) Vital Signs Vital Name Observation Time Observation Value Comments Source Systolic blood 2022-02-20 01:13:29 129 mm[Hg] [facility] pressure Diastolic blood 2022-02-20 01:13:29 67 mm[Hg] [facility] pressure Heart rate 2022-02-20 01:13:29 60 /min [facility] Respiratory rate 2022-02-20 01:13:29 18 /min [facility] Oxygen saturation in 2022-02-20 01:13:29 96 /min [facility] Arterial blood by Pulse oximetry Body height 2022-02-19 20:30:00 162.6 cm [facility] Body weight 2022-02-19 20:30:00 79.379 kg [facility] BMI 2022-02-19 20:30:00 30.04 kg/m2 [facility] Body temperature 2022-02-19 20:29:09 36.61 Nydia [facility] pulse rate 2021-12-16 13:21:49 87 /[facility], 2021-12-16 13:21:49 67 mm[Hg] [facility] diastolic Health blood pressure, 2021-12-16 13:21:49 132 mm[Hg] [facility] rate 2020-11-25 14:31:56 70 [facility], 2020-11-25 14:31:56 74 mm[Hg] [facility] diastolic Health blood pressure, 2020-11-25 14:31:56 113 mm[Hg] [facility] systolic Health pulse rate 2020-11-25 13:39:38 70 /[facility], 2020-11-25 13:39:38 74 mm[Hg] [facility] diastolic Health blood pressure, 2020-11-25 13:39:38 113 mm[Hg] [facility] systolic Health Procedures Procedure Date / Time Performing Source Performed Clinician CT CHEST WO CONTRAST ABDOMEN WO 2022-02-20 Cristóbal Ovalle CONTRAST PELVIS WO CONTRAST 01:47:08 [facility] ECG ED PRELIMINARY INTERPRETATION 2022-02-20 Cristóbal Ovalle 01:34:30 [facility] CBC WITH PLATELET AND DIFFERENTIAL 2022-02-19 Pa Manning [facility] 21:40:00 [facility] COMPREHENSIVE METABOLIC PANEL 2022-02-19 Alee Manning Sd [facility]odist 21:40:00 [facility] HCG QUALITATIVE, SERUM SCREEN 2022-02-19 Alee Manning Me [facility]ist 21:40:00 [facility] ESTIMATED GFR 2022-02-19 Alee Manningist 21:40:00 [facility] ECG 12-LEAD 2022-02-19 Alee Manningist 20:46:22 Hospital [...] 1/2 COMBINED AB, IGM 2022-02-05 Eddie Farris [facility]ist 15:30:00 Hospital RPR WITH REFLEX TO TITER 2022-02-05 Eddie Farris 15:30:00 [facility] HEPATITIS C VIRUS (HCV), 2022-02-05 Eddie Farris QUANTITATIVE PCR 15:30:00 [facility] SURGICAL PATHOLOGY REQUEST 2021-12-26 Esthela Small [facility] 18:06:00 Hospital COLONOSCOPY 2021-12-26 Esthela Small [facility] 15:44:00 [facility] ESOPHAGOGASTRODUODENOSCOPY (EGD) 2021-12-26 Esthela Small [facility] 15:44:00 [facility] COVID-19 QUALITATIVE RT-PCR 2021-12-24 Esthela Small ethodist 12:41:00 [facility] THINPREP TIS AND HPV MRNA E6/E7 2021-12-18 Eddie Farris 18:34:00 [facility] ECG 12-LEAD 2021-11-28 Keith Carroll 15:26:34 [facility] TROPONIN T 2021-11-07 Zeyad Cohen 20:01:00 [facility] COVID-19 QUALITATIVE RT-PCR 2021-11-07 Zeyad Cohen 19:09:00 [facility] COVID-19 OMICRON VARIANT 2021-11-[address] QUALITATIVE RT-PCR 19:09:00 [facility] XR CHEST 2 VW 2021-11-07 Zeyad Cohen 18:51:38 [facility] ECG ED PRELIMINARY INTERPRETATION 2021-11-07 Karo Cohen 18:50:27 [facility] COMPREHENSIVE METABOLIC PANEL 2021-11-07 Zeyad Cohen [facility]odist 18:03:00 [facility] TROPONIN T 2021-11-07 Zeyad Cohen 18:03:00 [facility] CBC WITH PLATELET AND DIFFERENTIAL 2021-11-07 Ed Cohen 18:03:00 [facility] HCG QUALITATIVE, SERUM SCREEN 2021-11-07 Zeyad Cohen thodist 18:03:00 [facility] ESTIMATED GFR 2021-11-07 Zeyad Cohen 18:03:00 [facility] ECG 12-LEAD 2021-11-07 Liborio Herrera Uatsdin 17:57:16 Hospital [place] UGI W OR WO KUB 2021-11-03 Esthela Smallist 15:16:30 Hospital HEPATITIS C VIRUS (HCV), 2021-11-03 Esthela Small Meth odist QUANTITATIVE PCR 13:52:00 Hospital HEPATIC FUNCTION PANEL 2021-11-03 Esthela Small Method ist 13:52:00 Hospital XR CHEST 2 VW 2021-10-15 Mary Ridern Kody Uatsdin 02:52:42 [facility] COMPREHENSIVE METABOLIC PANEL 2021-10-15 Mario Maher 01:15:00 [facility] TROPONIN T 2021-10-15 Mario Maher 01:15:00 [facility] B NATRIURETIC PEPTIDE 2021-10-15 Mario Maher 01:15:00 [facility] CBC WITH PLATELET AND DIFFERENTIAL 2021-10-15 Kassy Maher 01:15:00 [facility] PROTHROMBIN TIME WITH INR 2021-10-15 Mario Maher ist 01:15:00 [facility] PARTIAL THROMBOPLASTIN TIME (PTT) 2021-10-15 Mario Maher 01:15:00 [facility] ESTIMATED GFR 2021-10-15 Mario Maher 01:15:00 [facility] ECG 12-LEAD 2021-10-15 Mario Maher 00:33:44 [facility] CT ANGIOGRAM PE CHEST 2021-10-12 Trung Courtney 17:55:52 Hospital CBC WITH PLATELET AND DIFFERENTIAL 2021-10-12 Trung Courtney 15:36:00 Hospital COMPREHENSIVE METABOLIC PANEL 2021-10-12 Trung Courtneyodi 15:36:00 Hospital TROPONIN T 2021-10-12 Trung Courtney 15:36:00 Hospital B NATRIURETIC PEPTIDE 2021-10-12 Trung Courtney 15:36:00 Hospital CREATINE KINASE, TOTAL (CPK) 2021-10-12 Trung Courtney thodist 15:36:00 Hospital ESTIMATED GFR 2021-10-12 Trung Courtney 15:36:00 Hospital ECG ED PRELIMINARY INTERPRETATION 2021-10-12 Trung Courtney 15:20:39 Hospital URINE CULTURE 2021-10-12 Rajinder Ordoñez 15:17:00 [facility] URINALYSIS SCREEN AND MICROSCOPY, 2021-10-12 Arslan Ordoñez WITH REFLEX TO CULTURE 15:17:00 [facility] HCG QUALITATIVE, URINE SCREEN 2021-10-12 Rajinder Ordoñez 15:17:00 [facility] ECG 12-LEAD 2021-10-12 Rajinder Ordoñez 14:48:50 [facility] [place] AN ELECTIVE SUPRAGLOTTIC AIRWAY 2021-09-30 Ruddy Marie 12:10:00 Hospital DECOMPRESSION, ULNAR NERVE 2021-09-30 Rebecca Brownlee 12:06:00 [facility] COVID-19 QUALITATIVE RT-PCR 2021-09-26 Dulce Maria Pierre 14:23:00 [facility] PROTHROMBIN TIME WITH INR 2021-09-26 Antonio Pierre ist 14:23:00 [facility] PARTIAL THROMBOPLASTIN TIME (PTT) 2021-09-26 Keith Pierre 14:23:00 [facility] COMPREHENSIVE METABOLIC PANEL 2021-09-26 Me Gabby thodist 14:23:00 [facility] ESTIMATED GFR 2021-09-26 Rebecca Brownlee 14:23:00 [facility] HEMOGLOBIN A1C 2021-09-26 Rebecca Brownlee 14:23:00 [facility] CBC WITH PLATELET AND DIFFERENTIAL 2021-09-19 Lexie Esparza 07:10:00 Hospital THYROID STIMULATING HORMONE 2021-09-19 Peggy Esparza 07:10:00 Hospital XR ELBOW 3+ VW LEFT 2021-09-10 Rebecca Brownlee 15:28:[address] [facility] [address] ANGIOGRAM NECK W WO CONTRAST 2021-08-27 Brenda Retana 00:01:04 [facility] CT ANGIOGRAM HEAD W WO CONTRAST 2021-08-27 Brenda Retana 00:00:50 [facility] CT HEAD WO CONTRAST 2021-08-26 Brenda Retana 23:42:36 [facility] ECG ED PRELIMINARY INTERPRETATION 2021-08-26 Brenda Retana 23:22:45 [facility] CBC WITH PLATELET AND DIFFERENTIAL 2021-08-26 Willie Retana 21:57:00 [facility] COMPREHENSIVE METABOLIC PANEL 2021-08-26 Brenda Retana Me thodist 21:57:00 [facility] TROPONIN T 2021-08-26 Brenda Retana 21:57:00 [facility] B NATRIURETIC PEPTIDE 2021-08-26 Brenda Retana 21:57:00 [facility] HCG QUALITATIVE, SERUM SCREEN 2021-08-26 Brenda Retana Me thodist 21:57:00 [facility] ESTIMATED GFR 2021-08-26 Brenda Retana 21:57:00 [facility] ECG 12-LEAD 2021-08-26 Brenda Retana 21:42:16 [facility] URINE CULTURE 2021-08-06 Myles Martin 22:27:00 [facility] URINALYSIS SCREEN AND MICROSCOPY, 2021-08-06 Myles Martin Si WITH REFLEX TO CULTURE 22:27:00 [facility] XR CHEST 2 VW 2021-08-06 Myles Martin 20:36:00 [facility] INFLUENZA ANTIGEN 2021-08-06 Susie Melton 20:10:00 [facility] RESPIRATORY PATHOGEN PANEL WITH 2021-08-06 Susie Melton COVID-19 RT-PCR 20:10:00 [facility] ECG ED PRELIMINARY INTERPRETATION 2021-08-06 Myles Martin Siist 20:08:02 [facility] COMPREHENSIVE METABOLIC PANEL 2021-08-06 Susie Melton thodist 20:05:00 [facility] CBC WITH PLATELET AND DIFFERENTIAL 2021-08-06 Montserrat Melton 20:05:00 [facility] TROPONIN T 2021-08-06 Susie Melton 20:05:00 [facility] LIPASE LEVEL 2021-08-06 Susie Melton 20:05:00 [facility] ESTIMATED GFR 2021-08-06 Susie Melton 20:05:00 [facility] ECG 12-LEAD 2021-08-06 Susie Meltonist 19:55:29 [facility] TROPONIN T 2021-08-01 Brenda Retana 03:32:00 [facility] ECG ED PRELIMINARY INTERPRETATION 2021-08-01 Nelson Villagran i Uatsdin 02:37:45 Hospital CBC WITH PLATELET AND DIFFERENTIAL 2021-08-01 Willie Retana Uatsdin 00:35:00 [facility] COMPREHENSIVE METABOLIC PANEL 2021-08-01 Brenda Retana thodist 00:35:00 [facility] TROPONIN T 2021-08-01 Brenda Retana 00:35:00 [facility] B NATRIURETIC PEPTIDE 2021-08-01 Brenda Retana 00:35:00 [facility] ESTIMATED GFR 2021-08-01 Brenda Retanaist 00:35:00 [facility] ECG 12-LEAD 2021-08-01 Brenda Retana 00:23:19 [facility] TROPONIN T 2021-07-30 Jaida Sales 21:35:00 [facility] ECG ED PRELIMINARY INTERPRETATION 2021-07-30 Myles Martin Si Uatsdin 19:53:48 Hospital XR CHEST 2 VW 2021-07-30 Myles Martin Uatsdin 19:37:56 [facility] COMPREHENSIVE METABOLIC PANEL 2021-07-30 Jaida Sales 18:40:00 Hospital CBC WITH PLATELET AND DIFFERENTIAL 2021-07-30 Jaida Sales 18:40:00 Hospital TROPONIN T 2021-07-30 Jaida Sales 18:40:00 Hospital B NATRIURETIC PEPTIDE 2021-07-[address] 18:40:00 Hospital ESTIMATED GFR 2021-07-30 Jaida Sales 18:40:00 Hospital ECG 12-LEAD 2021-07-30 Jaida Sales 18:33:57 Hospital MAMMO BREAST SCREEN TOMOSYNTHESIS 2021-07-28 Shell Vargas Uatsdin BILATERAL 14:20:00 [facility] ECG ED PRELIMINARY INTERPRETATION 2021-07-01 Nelson Villagran i Uatsdin 00:04:28 Hospital TROPONIN T 2021-06-30 Mario Maher 23:09:00 [facility] RESPIRATORY PATHOGEN PANEL WITH 2021-06-30 Mario Maher COVID-19 RT-PCR 21:09:00 [facility] XR CHEST 2 VW 2021-06-30 Mario Maher 20:40:51 [facility] COMPREHENSIVE METABOLIC PANEL 2021-06-30 Mario Maher Sd thodist 20:06:00 [facility] TROPONIN T 2021-06-30 Mario Maher 20:06:00 [facility] B NATRIURETIC PEPTIDE 2021-06-30 Mario Maher 20:06:00 [facility] CBC WITH PLATELET AND DIFFERENTIAL 2021-06-30 Kassy Maher 20:06:00 [facility] ESTIMATED GFR 2021-06-30 Mario Maher 20:06:00 [facility] ECG 12-LEAD 2021-06-30 Mario Maher 19:54:19 [facility] POC URINALYSIS DIPSTICK 2021-06-16 Eddie Farris t 18:20:00 [facility] THINPREP TIS PAP AND HPV MRNA 2021-06-16 Eddie Farris Sd thodist E6/E7 REFLEX HPV 16,18/45 18:17:00 Hospit al URINALYSIS, COMPLETE, WITH REFLEX 2021-06-16 Eddie Farrisist TO CULTURE 17:55:00 Hospital XR SHOULDER 2+ VW RIGHT 2021-06-02 Roger Ling t 17:52:26 [facility] MRI LUMBAR SPINE WO CONTRAST 2021-05-09 Shell Vargas Met hodist 18:44:08 [facility] MRI CERVICAL SPINE WO CONTRAST 2021-05-05 Shell Vargas ethodist 14:11:49 [facility] CT LUMBAR SPINE WO CONTRAST 2021-05-04 Liborio Herrera Met hodist 22:36:08 [facility] CT THORACIC SPINE WO CONTRAST 2021-05-04 Liborio Herrera ethodist 22:35:58 Hospital TROPONIN T 2021-04-13 Candelaria Lui Uatsdin 01:33:00 Hospital XR CHEST 2 VW 2021-04-12 [...] ED PRELIMINARY INTERPRETATION 2021-04-12 Candelaria Lui 21:47:56 Hospital Plan of Care Planned Activity Planned Date Details Comments Source Future Scheduled 2024-09-11 [facility] 00:[facility]:00 malignant neoplasm of cervix (procedure) [code = 554503662] Future Scheduled 2024-09-11 [facility] 00:00:00 malignant neoplasm of cervix (procedure) [code = 385036010] Future Scheduled 2024-09-11 [facility] 00:00:00 malignant neoplasm of cervix (procedure) [code = 234685425] Future Scheduled 2024-09-11 [facility] 00:00:00 malignant neoplasm of cervix (procedure) [code = 775914793] Future Scheduled 2024-09-11 [facility] 00:00:00 malignant neoplasm of cervix (procedure) [code = 014873542] Future Scheduled 2024-09-11 [facility] 00:00:00 malignant neoplasm of cervix (procedure) [code = 885831112] Future Scheduled 2024-09-11 [facility] 00:00:00 malignant neoplasm of cervix (procedure) [code = 708154797] Future Scheduled 2024-09-11 [facility] 00:00:00 malignant neoplasm of cervix (procedure) [code = 425264792] Future Scheduled 2024-09-11 [facility] 00:00:00 malignant neoplasm of cervix (procedure) [code = 905202163] Future Scheduled 2024-09-11 [facility] 00:00:00 malignant neoplasm of cervix (procedure) [code = 390658559] Future Scheduled 2022-04-15 HEPATITIS B VACCINES Met [facility] Test 14:24:02 (1 of 3 - 3-dose series) [code = HEPATITIS B VACCINES (1 of 3 - 3-dose series)] Future Scheduled 2022-04-15 Pneumococcal Vaccine: [facility] Test 14:24:02 Pediatrics (0 to 5 Years) and At-Risk Patients (6 to 64 Years) (1 - PCV) [code = Pneumococcal Vaccine: Pediatrics (0 to 5 Years) and At-Risk Patients (6 to 64 Years) (1 - PCV)] Future Scheduled 2022-04-15 COLONOSCOPY SCREENING [facility] Test 14:24:02 [code = COLONOSCOPY SCREENING] Future Scheduled 2022-04-15 SHINGLES VACCINES (1 [facility] Test 14:24:02 of 2) [code = SHINGLES VACCINES (1 of 2)] Future Scheduled 2022-04-15 COVID-19 VACCINE (3 - [facility] Test 14:24:02 Booster for Pfizer series) [code = COVID-19 VACCINE (3 - Booster for Pfizer series)] Future Scheduled 2022-04-15 INFLUENZA VACCINE [facility] Test 14:24:02 [code = INFLUENZA VACCINE] Future Scheduled 2022-04-15 BREAST CANCER [facility] Test 14:24:02 SCREENING [code = BREAST CANCER SCREENING] Future Scheduled 2022-04-15 Screening for [facility] Test 14:24:02 malignant neoplasm of cervix (procedure) [code = 117791002] Future Scheduled 2022-04-03 HEPATITIS B VACCINES [facility] Test 09:31:00 (1 of 3 - 3-dose series) [code = HEPATITIS B VACCINES (1 of 3 - 3-dose series)] Future Scheduled 2022-04-03 Pneumococcal Vaccine: [facility] Test 09:31:00 Pediatrics (0 to 5 Years) and At-Risk Patients (6 to 64 Years) (1 - PCV) [code = Pneumococcal Vaccine: Pediatrics (0 to 5 Years) and At-Risk Patients (6 to 64 Years) (1 - PCV)] Future Scheduled 2022-04-03 COLONOSCOPY SCREENING [facility] Test 09:31:00 [code = COLONOSCOPY SCREENING] Future Scheduled 2022-04-03 SHINGLES VACCINES (1 [facility] Test 09:31:00 of 2) [code = SHINGLES VACCINES (1 of 2)] Future Scheduled 2022-04-03 COVID-19 VACCINE (3 - [facility] Test 09:31:00 Booster for Pfizer series) [code = COVID-19 VACCINE (3 - Booster for Pfizer series)] Future Scheduled 2022-04-03 INFLUENZA VACCINE Method [facility] Test 09:31:00 [code = INFLUENZA VACCINE] Future Scheduled 2022-04-03 BREAST CANCER [facility] Test 09:31:00 SCREENING [code = BREAST CANCER SCREENING] Future Scheduled 2022-04-03 Screening for [facility] Test 09:31:00 malignant neoplasm of cervix (procedure) [code = 415877165] Future Scheduled 2022-03-05 HEPATITIS B VACCINES [facility] Test 00:08:56 (1 of 3 - 3-dose series) [code = HEPATITIS B VACCINES (1 of 3 - 3-dose series)] Future Scheduled 2022-03-05 Pneumococcal Vaccine: [facility] Test 00:08:56 Pediatrics (0 to 5 Years) and At-Risk Patients (6 to 64 Years) (1 - PCV) [code = Pneumococcal Vaccine: Pediatrics (0 to 5 Years) and At-Risk Patients (6 to 64 Years) (1 - PCV)] Future Scheduled 2022-03-05 COLONOSCOPY SCREENING [facility] Test 00:08:56 [code = COLONOSCOPY SCREENING] Future Scheduled 2022-03-05 SHINGLES VACCINES (1 [facility] Test 00:08:56 of 2) [code = SHINGLES VACCINES (1 of 2)] Future Scheduled 2022-03-05 COVID-19 VACCINE (3 - [facility] Test 00:08:56 Booster for Pfizer series) [code = COVID-19 VACCINE (3 - Booster for Pfizer series)] Future Scheduled 2022-03-05 INFLUENZA VACCINE Method [facility] Test 00:08:56 [code = INFLUENZA VACCINE] Future Scheduled 2022-03-05 BREAST CANCER [facility] Test 00:08:56 SCREENING [code = BREAST CANCER SCREENING] Future Scheduled 2022-03-05 Screening for [facility] Test 00:08:56 malignant neoplasm of cervix (procedure) [code = 268278194] Future Scheduled 2022-03-05 HEPATITIS B VACCINES Met [facility] Test 00:08:56 (1 of 3 - 3-dose series) [code = HEPATITIS B VACCINES (1 of 3 - 3-dose series)] Future Scheduled 2022-03-05 Pneumococcal Vaccine: [facility] Test 00:08:56 Pediatrics (0 to 5 Years) and At-Risk Patients (6 to 64 Years) (1 - PCV) [code = Pneumococcal Vaccine: Pediatrics (0 to 5 Years) and At-Risk Patients (6 to 64 Years) (1 - PCV)] Future Scheduled 2022-03-05 COLONOSCOPY SCREENING [facility] Test 00:08:56 [code = COLONOSCOPY SCREENING] Future Scheduled 2022-03-05 SHINGLES VACCINES (1 [facility] Test 00:08:56 of 2) [code = SHINGLES VACCINES (1 of 2)] Future Scheduled 2022-03-05 COVID-19 VACCINE (3 - [facility] Test 00:08:56 Booster for Pfizer series) [code = COVID-19 VACCINE (3 - Booster for Pfizer series)] Future Scheduled 2022-03-05 INFLUENZA VACCINE Method [facility] Test 00:08:56 [code = INFLUENZA VACCINE] Future Scheduled 2022-03-05 BREAST CANCER [facility] Test 00:08:56 SCREENING [code = BREAST CANCER SCREENING] Future Scheduled 2022-03-05 Screening for [facility] Test 00:08:56 malignant neoplasm of cervix (procedure) [code = 938664373] Future Scheduled 2022-02-22 HEPATITIS B VACCINES [facility] Test 22:17:15 (1 of 3 - 3-dose series) [code = HEPATITIS B VACCINES (1 of 3 - 3-dose series)] Future Scheduled 2022-02-22 Pneumococcal Vaccine: [facility] Test 22:17:15 Pediatrics (0 to 5 Years) and At-Risk Patients (6 to 64 Years) (1 - PCV) [code = Pneumococcal Vaccine: Pediatrics (0 to 5 Years) and At-Risk Patients (6 to 64 Years) (1 - PCV)] Future Scheduled 2022-02-22 COLONOSCOPY SCREENING [facility] Test 22:17:15 [code = COLONOSCOPY SCREENING] Future Scheduled 2022-02-22 SHINGLES VACCINES (1 [facility] Test 22:17:15 of 2) [code = SHINGLES VACCINES (1 of 2)] Future Scheduled 2022-02-22 COVID-19 VACCINE (3 - [facility] Test 22:17:15 Booster for Pfizer series) [code = COVID-19 VACCINE (3 - Booster for Pfizer series)] Future Scheduled 2022-02-22 INFLUENZA VACCINE [facility] Test 22:17:15 [code = INFLUENZA VACCINE] Future Scheduled 2022-02-22 BREAST CANCER [facility] Test 22:17:15 SCREENING [code = BREAST CANCER SCREENING] Future Scheduled 2022-02-22 Screening for [facility] Test 22:17:15 malignant neoplasm of cervix (procedure) [code = 711655355] Future Scheduled 2022-01-10 IMM Influenza Seasonal H [...] malignant neoplasm of colon (procedure) [code = 587361294] Future Scheduled 2019 [facility] 00:00:00 malignant neoplasm of colon (procedure) [code = 863130523] Future Scheduled 2019 [facility] 00:00:00 malignant neoplasm of colon (procedure) [code = 157565026] Future Scheduled 2019 [facility] 00:00:00 malignant neoplasm of colon (procedure) [code = 587441666] Future Scheduled 2019 [facility] 00:00:00 malignant neoplasm of colon (procedure) [code = 651679623] Future Scheduled 1975 Imm Pneumococcal 0-64 [facility] Test 00:00:00 (1 - PCV) [...] Department ID 2022-02-19 2022-02-19 Emergency Vasquez, 1.2.840.1 [id number] Methodi 18:09:00 20:16:[address] [place] 3.430.2.7 Hosp shai .3.726495 l .8 2022-02-19 2022-02-19 Emergency Vasquez, 1.2.840.1 [id number] Methodi 18:09:00 20:16:[address] [place] 3.430.2.7 Hosp shai .3.210660 l .8 2022-02-12 2022-02-12 Orders Lopez, 1.2.840.1 [id number] Methodi 00:00:00 00:00:00 Only Maureen 23947.1.[address] 3.430.2.7 Hospit a .3.676622 l .8 2022-02-12 2022-02-12 Orders Lopez, 1.2.840.1 [id number] Methodi 00:00:00 00:00:00 Only Maureen 28491.1.[address] 3.430.2.7 Hospit a .3.220936 l .8 2022-02-11 2022-02-11 Orders Lopez, 1.2.840.1 [id number] Methodi 00:00:00 00:00:00 Only Maureen 61711.1.[address] 3.430.2.7 Hospit a .3.222349 l .8 2022-02-11 2022-02-11 Telephone Prasanth, 1.2.840.1 [id number] 2100 [id number] Methodi 00:00:00 00:00:00 Eddie Franco 37024.1.[address] 3.430.2.7 Hospit a .3.144937 l .8 2022-02-11 2022-02-11 Orders Jessica, 1.2.840.1 [id number] Methodi 00:00:00 00:00:00 Only Maureen 28138.1.[address] 3.430.2.7 Hospit a .3.862986 l .8 2022-02-11 2022-02-11 Telephone Prasanth, 1.2.840.1 [id number] 2099 [id number] Methodi 00:00:00 00:00:00 Eddie Franco 57570.1.[address] 3.430.2.7 Hospit a .3.431086 l .8 2022-02-09 2022-02-09 Outpatient COH COH PDPFCCG ETQ COH 00:00:00 00:00:00 [id number] 2022-02-09 2022-02-09 Telephone Prasanth, 1.2.840.1 [id number] 2099 [id number] Methodi 00:00:00 00:00:00 Eddie Franco 24233.1.[address] 3.430.2.7 Hospit a .3.110779 l .8 2022-02-09 2022-02-09 Telephone Prasanth, 1.2.840.1 [id number] 2099 [id number] Methodi 00:00:00 00:00:00 Eddie Franco 38250.1.[address] 3.430.2.7 Hospit a .3.764753 l .8 2022-02-05 2022-02-05 Lab Prasanth, 1.2.840.1 [id number] Methodi 10:50:00 10:55:00 Eddie Franco 93825.1.[address] 3.430.2.7 Hospit a .3.642808 l .8 2022-02-05 2022-02-05 Lab Prasanth, 1.2.840.1 [id number] Methodi 10:50:00 10:55:00 Eddie Franco 97487.1.[address] 3.430.2.7 Hospit a .3.045040 l .8 2022-02-05 2022-02-05 Office Prasanth, 1.2.840.1 [id number] 6400 Methodi 09:40:00 10:31:06 Visit Eddie Franco 35796.1.[address] 3.430.2.7 Hospit a .3.544680 l .8 2022-02-05 2022-02-05 Office Prasanth, 1.2.840.1 [id number] 5770 Methodi 09:40:00 10:31:06 Visit Eddie Franco 37496.1.[address] 3.430.2.7 Hospit a .3.162689 l .8 2022-02-05 2022-02-05 Travel 1.2.840.1 1.2.000.373 [id number] [id number] Methodi 00:00:00 00:00:[address] 3.430.2.7 0.2.7.3.698 Ho spita .3.327545 084.8 l .8 2022-02-05 2022-02-05 Refill Istre, 1.2.840.1 [id number] Methodi 00:00:00 00:00:[address] [place] 3.430.2.7 Hospi ta .3.727523 l .8 2022-02-05 2022-02-05 Refill Istre, 1.2.840.1 [id number] 9465 Methodi 00:00:00 00:00:[address] Bailey 3.430.2.7 Hospi ta .3.324144 l .8 2022-02-05 2022-02-05 Travel 1.2.840.1 1.2.534.375 3738 [id number] Methodi 00:00:00 00:00:[address] 3.430.2.7 0.2.7.3.698 Ho spita .3.882504 084.8 l .8 2022-02-03 2022-02-03 Telephone Prasanth, 1.2.840.1 [id number] 2099 [id number] Methodi 00:00:00 00:00:00 Eddie Franco 93569.1.[address] 3.430.2.7 Hospit a .3.899508 l .8 2022-02-03 2022-02-03 Telephone Prasanth, 1.2.840.1 [id number] 2099 [id number] Methodi 00:00:00 00:00:00 Eddie Franco 19394.1.[address] 3.430.2.7 Hospit a .3.218330 l .8 2022-01-01 2022-01-01 Telephone Alessio, 1.2.840.1 [id number] 2099 [id number] Methodi 00:00:00 00:00:[address] 3.430.2.7 Hospit a .3.434361 l .8 2022-01-01 2022-01-01 Telephone Alessio, 1.2.840.1 [id number] 2099 [id number] Methodi 00:00:00 00:00:[address] 3.430.2.7 Hospit a .3.041181 l .8 2021-12-26 2021-12-26 Surgery Small, 1.2.840.1 [id number] 2914 Methodi 11:00:00 11:45:[address] Hasan 3.430.2.7 Hospit a .3.484912 l .8 2021-12-26 2021-12-26 Surgery Small, 1.2.840.1 [id number] 0056 Methodi 11:00:00 11:45:[address] Hasan 3.430.2.7 Hospit a .3.822071 l .8 2021-12-26 2021-12-26 Hospital Small, 1.2.840.1 [id number] Methodi 10:21:00 11:28:00 Encounter Proctor 22036.1.[address] Hasan 3.430.2.7 Hospit a .3.027545 l .8 2021-12-26 2021-12-26 [facility], 1.2.840.1 [id number] Methodi 10:21:00 11:28:00 Encounter Proctor 86907.1.[address] Hasan 3.430.2.7 Hospit a .3.321039 l .8 2021-12-26 2021-12-26 Anesthesia Hans Casper 1.2.840.1 [id number] Methodi 10:44:00 11:06:00 Event Edward 80990.1.[address] 3.430.2.7 Hospit a .3.482929 l .8 2021-12-26 2021-12-26 Anesthesia PennieHans mendez 1.2.840.1 [id number] Methodi 10:44:00 11:06:00 Event Edward 04558.1.[address] 3.430.2.7 Hospit a .3.721225 l .8 2021-12-26 2021-12-26 Travel 1.2.840.1 1.2.568.160 [id number] [id number] Methodi 00:00:00 00:00:[address] 3.430.2.7 0.2.7.3.698 Ho spita .3.271839 084.8 l .8 2021-12-26 2021-12-26 Travel 1.2.840.1 1.2.649.039 2727 [id number] Methodi 00:00:00 00:00:[address] 3.430.2.7 0.2.7.3.698 Ho spita .3.039267 084.8 l .8 2021-12-24 2021-12-24 Lab Staci, 1.2.840.1 [id number] Methodi 08:00:00 08:15:[address] Hasan 3.430.2.7 Hospit a .3.200569 l .8 2021-12-24 2021-12-24 Lab Staci, 1.2.840.1 [id number] 285898 5213 Methodi 08:00:00 08:15:[address] Hasan 3.430.2.7 Hospit a .3.659302 l .8 2021-12-24 2021-12-24 Orders Marc, 1.2.840.1 [id number] 513921 3704 Methodi 00:00:00 00:00:00 Only [place] 22495.1.[address] 3.430.2.7 Hospit a .3.656370 l .8 2021-12-24 2021-12-24 Orders Marc, 1.2.840.1 [id number] 020245 3721 Methodi 00:00:00 00:00:00 Only [place]ney 89073.1.[address] 3.430.2.7 Hospit a .3.332029 l .8 2021-12-18 2021-12-18 Office Prasanth, 1.2.840.1 [id number] 143641 5405 Methodi 11:00:00 13:02:01 Visit Eddie Franco 99711.1.[address] 3.430.2.7 Hospit a .3.748333 l .8 2021-12-18 2021-12-18 Office Prasanth, 1.2.840.1 [id number] 604619 1029 Methodi 11:00:00 13:02:01 Visit Eddie Franco 64419.1.[address] 3.430.2.7 Hospit a .3.870050 l .8 2021-12-18 2021-12-18 Travel 1.2.840.1 1.2.127.309 8120 246311 Methodi 00:00:00 00:00:[address] 3.430.2.7 0.2.7.3.698 Ho spita .3.210961 084.8 l .8 2021-12-18 2021-12-18 Travel 1.2.840.1 1.2.210.774 4950 134779 Methodi 00:00:00 00:00:[address] 3.430.2.7 0.2.7.3.698 Ho spita .3.873148 084.8 l .8 2021-12-16 2021-12-16 Office Doug Estevez [facility] Encounter/ Legacy 00:00:00 00:00:00 Visit Bijan Carson [id number] [facility] [id number] [facility] 2021-12-09 2021-12-09 Refill Leggett, 1.2.840.1 [id number] 2099 102281 Methodi 00:00:00 00:00:[address] 3.430.2.7 Hospit a .3.709814 l .8 2021-12-09 2021-12-09 Refill Leggett, 1.2.840.1 [id number] 2099 871955 Methodi 00:00:00 00:00:[address] 3.430.2.7 Hospit a .3.069847 l .8 2021-11-28 2021-11-28 Office Yarelyviry, 1.2.840.1 [id number] 780 9503598 Methodi 10:15:00 10:52:48 [address] Pimprapa 48761.1.[address] 3.430.2.7 Hospit a .3.090808 l .8 2021-11-28 2021-11-28 Office Patriciadariusz, 1.2.840.1 [id number] 430 9683821 Methodi 10:15:00 10:52:48 Visit Pimprapa 78589.1.[address] 3.430.2.7 Hospit a .3.770090 l .8 2021-11-28 2021-11-28 Travel 1.2.840.1 1.2.351.641 1682 797491 Methodi 00:00:00 00:00:[address] 3.430.2.7 0.2.7.3.698 Ho spita .3.889856 084.8 l .8 2021-11-28 2021-11-28 Travel 1.2.840.1 1.2.361.610 9018 475245 Methodi 00:00:00 00:00:[address] 3.430.2.7 0.2.7.3.698 Ho spita .3.023952 084.8 l .8 2021-11-17 2021-11-17 Office Maebe, 1.2.840.1 [id number] 044051 6620 Methodi 09:00:00 09:30:00 Visit Juana 04303.1.[address] Kelley 3.430.2.7 Hospit a .3.518511 l .8 2021-11-17 2021-11-17 Office Maebe, 1.2.840.1 [id number] 764344 1260 Methodi 09:00:00 09:30:00 Visit Juana 85512.1.[address] Kelley 3.430.2.7 Hospit a .3.336444 l .8 2021-11-17 2021-11-17 Travel 1.2.840.1 1.2.705.534 2111 972795 Methodi 00:00:00 00:00:[address] 3.430.2.7 0.2.7.3.698 Ho spita .3.444756 084.8 l .8 2021-11-17 2021-11-17 Travel 1.2.840.1 1.2.455.233 3436 574345 Methodi 00:00:00 00:00:[address] 3.430.2.7 0.2.7.3.698 Ho spita .3.757619 084.8 l .8 2021-11-14 2021-11-14 Orders Istre, 1.2.840.1 [id number] 011488 1964 Methodi 00:00:00 00:00:00 Only Shell 82383.1.[address] Bailey 3.430.2.7 Hospi ta .3.098857 l .8 2021-11-14 2021-11-14 Orders Istre, 1.2.840.1 [id number] 893659 7810 Methodi 00:00:00 00:00:00 Only Shell 41176.1.[address] Doe 3.430.2.7 Hospi ta .3.942064 l .8 2021-11-11 2021-11-11 Telemedici Istre, 1.2.840.1 851304808 751 1760739 Methodi 10:00:00 10:40:34 ne Shell 66549.1.[address] Bailey 3.430.2.7 Hospi ta .3.906496 l .8 2021-11-11 2021-11-11 Telemedici Istre, 1.2.840.1 196950263 339 1679808 Methodi 10:00:00 10:40:34 ne Shell 89735.1.[address] Bailey 3.430.2.7 Hospi ta .3.498194 l .8 2021-11-07 2021-11-07 Emergency Noel, 1.2.840.1 [id number] 2099 167745 Methodi 14:04:00 15:46:[address] Kirsten 3.430.2.7 Hospit a .3.002295 l .8 2021-11-07 2021-11-07 Emergency Noel, 1.2.840.1 378694805 2099246 Methodi 14:04:00 15:46:[address] Kirsten 3.430.2.7 Hospit a .3.572200 l .8 2021-11-07 2021-11-07 Travel 1.2.840.1 1.2.587.783 4838 772775 Methodi 00:00:00 00:00:[address] 3.430.2.7 0.2.7.3.698 Ho spita .3.759282 084.8 l .8 2021-11-07 2021-11-07 Travel 1.2.840.1 1.2.979.370 3826 794740 Methodi 00:00:00 00:00:[address] 3.430.2.7 0.2.7.3.698 Ho spita .3.388483 084.8 l .8 2021-11-03 2021-11-03 Lab Small, 1.2.840.1 098519881 474150 8189 Methodi 08:25:00 08:30:[address] Hasan 3.430.2.7 Hospit a .3.066075 l .8 2021-11-03 2021-11-03 Lab Small, 1.2.840.1 345903361 028898 1735 Methodi 08:25:00 08:30:[address] Hasan 3.430.2.7 Hospit a .3.670830 l .8 2021-11-03 2021-11-03 Telephone Mccallum, 1.2.840.1 743127433 2100 065972 Methodi 00:00:00 00:00:[address] 3.430.2.7 Hospit a .3.751155 l .8 2021-11-03 2021-11-03 Travel 1.2.840.1 1.2.334.869 3390 504161 Methodi 00:00:00 00:00:[address] 3.430.2.7 0.2.7.3.698 Ho spita .3.759860 084.8 l .8 2021-11-03 2021-11-03 Outpatient [facility] [id number] 623 [place] 00:00:00 00:00:00 PROCTOR [address] 2021-11-03 2021-11-03 Telephone Alessio, 1.2.840.1 [id number] 2099 579350 Methodi 00:00:00 00:00:[address] 3.430.2.7 Hospit a .3.641839 l .8 2021-11-03 2021-11-03 Travel 1.2.840.1 1.2.126.389 0645 594379 Methodi 00:00:00 00:00:[address] 3.430.2.7 0.2.7.3.698 Ho spita .3.464659 084.8 l .8 2021-10-29 2021-10-29 Documentat Judd, 1.2.840.1 532774889 2 [id number] Methodi 00:00:00 00:00:00 ion Amanda 92779.1.[address] 3.430.2.7 Hospit a .3.894762 l .8 2021-10-29 2021-10-29 Prep for Judd, 1.2.840.1 179249429 913 3102787 Methodi 00:00:00 00:00:00 Surgery Amanda 51174.1.[address] 3.430.2.7 Hospit a .3.043037 l .8 2021-10-29 2021-10-29 Telephone Judd, 1.2.840.1 [id number] 21 62211293 Methodi 00:00:00 00:00:[address] 3.430.2.7 Hospit a .3.764824 l .8 2021-10-29 2021-10-29 Travel 1.2.840.1 1.2.128.989 1545 375796 Methodi 00:00:00 00:00:[address] 3.430.2.7 0.2.7.3.698 Ho spita .3.292318 084.8 l .8 2021-10-29 2021-10-29 Documentat Judd, 1.2.840.1 [id number] 2 [id number] Methodi 00:00:00 00:00:00 ion Amanda 33096.1.[address] 3.430.2.7 Hospit a .3.542921 l .8 2021-10-29 2021-10-29 Prep for Binta, 1.2.840.1 169389142 668 5979635 Methodi 00:00:00 00:00:00 Surgery Amanda 04075.1.[address] 3.430.2.7 Hospit a .3.421240 l .8 2021-10-29 2021-10-29 Telephone Binta, 1.2.840.1 138635360 21 26804497 Methodi 00:00:00 00:00:[address] 3.430.2.7 Hospit a .3.939433 l .8 2021-10-29 2021-10-29 Travel 1.2.840.1 1.2.377.937 0678 497423 Methodi 00:00:00 00:00:[address] 3.430.2.7 0.2.7.3.698 Ho spita .3.869818 084.8 l .8 2021-10-22 2021-10-22 Office Kem, 1.2.840.1 253397588 770 9141046 Methodi 09:40:00 10:17:00 Visit Rebecca Nguyen 48926.1.[address] 3.430.2.7 Hospit a .3.300172 l .8 2021-10-22 2021-10-22 Office Kem, 1.2.840.1 218439587 186 7199861 Methodi 09:40:00 10:17:00 Visit Rebecca Nguyen 92221.1.[address] 3.430.2.7 Hospit a .3.168876 l .8 2021-10-22 2021-10-22 Travel 1.2.840.1 1.2.265.052 3002 739580 Methodi 00:00:00 00:00:[address] 3.430.2.7 0.2.7.3.698 Ho spita .3.693012 084.8 l .8 2021-10-22 2021-10-22 Travel 1.2.840.1 1.2.104.622 0485 172558 Methodi 00:00:00 00:00:[address] 3.430.2.7 0.2.7.3.698 Ho spita .3.950829 084.8 l .8 2021-10-14 2021-10-15 Emergency Adry, 1.2.840.1 [id number] 278 0365555 Methodi 21:57:00 00:06:00 José H 70970.1.[address] 3.430.2.7 Hospit a .3.069977 l .8 2021-10-14 2021-10-15 Emergency Adry, 1.2.840.1 [id number] 889 7913610 Methodi 21:57:00 00:06:00 José H [address]2672.1.[address] 3.430.2.7 Hospit a .3.492082 l .8 2021-10-12 2021-10-12 Emergency Courtney, 1.2.840.1 [id number] 2099 806793 Methodi 10:13:00 14:37:00 Trung Lazcano. 69258.1.[address] 3.430.2.7 Hospit a .3.988689 l .8 2021-10-12 2021-10-12 Emergency Courtney, 1.2.840.1 256848736 2099 829603 Methodi 10:13:00 14:37:[address] 99985[address] 3.430.2.7 Hospit a .3.514103 l .8 2021-10-09 2021-10-09 Telephone TitaJuan Carlos 1.2.840.1 200862767 2224221153 Methodi 00:00:00 00:00:[address] 3.430.2.7 Hospit a .3.524638 l .8 2021-10-09 2021-10-09 [facility] [id number] [id number] Methodi 00:00:00 00:00:[address] 3.430.2.7 Hospit a .3.392952 l .8 2021-10-09 2021-10-09 Orders Istre, 1.2.840.1 261508567 684268 0012 Methodi 00:00:00 00:00:00 Only Shell 60307.1.[address] Bailey 3.430.2.7 Hospi ta .3.350867 l .8 2021-10-09 2021-10-09 Telephone [facility] 1.2.840.1 [id number] [id number] Methodi 00:00:00 00:00:[address] 3.430.2.7 Hospit a .3.613407 l .8 2021-10-09 2021-10-09 Telephone [facility] 1.2.840.1 891766910 1378130699 Methodi 00:00:00 00:00:[address] 3.430.2.7 Hospit a .3.812203 l .8 2021-10-09 2021-10-09 Orders Istre, 1.2.840.1 314919055 150764 6875 Methodi 00:00:00 00:00:00 Only Shell 84987.1.[address] Doe 3.430.2.7 Hospi ta .3.476489 l .8 2021-10-02 2021-10-02 [facility] 1.2.840.1 [id number] 281 7194232 Methodi 00:00:00 00:00:[address] 3.430.2.7 Hospit a .3.328573 l .8 2021-10-02 2021-10-02 [facility], 1.2.840.1 [id number] 553 0269351 Methodi 00:00:00 00:00:[address] 3.430.2.7 Hospit a .3.183996 l .8 2021-09-30 2021-09-30 Surgery Kem, 1.2.840.1 640309904 077 2102376 Methodi 07:15:00 09:02:00 Rebecca Nguyen 78566.1.[address] 3.430.2.7 Hospit a .3.200309 l .8 2021-09-30 2021-09-30 Surgery Kem, 1.2.840.1 445058391 603 9387998 Methodi 07:15:00 09:02:00 Rebecca Nguyen 03668.1.[address] 3.430.2.7 Hospit a .3.702666 l .8 2021-09-30 2021-09-30 [facility] Kem 1.2.840.1 [id number] 21 [id number] Methodi 06:02:00 08:50:00 Encounter Rebecca Nguyen 62260.1.[address] 3.430.2.7 Hospit a .3.337544 l .8 2021-09-30 2021-09-30 [facility] Kem, 1.2.840.1 [id number] 21 [id number] Methodi 06:02:00 08:50:00 Encounter Rebecca Nguyen 62597.1.[address] 3.430.2.7 Hospit a .3.456408 l .8 2021-09-30 2021-09-30 Anesthesia Tomas Mattson 1.2.840.1 1045 75977 5709668924 Methodi 07:05:00 08:04:00 Event Sunita Marie 66284.1.[address] 3.430.2.7 Hospit a .3.046122 l .8 2021-09-30 2021-09-30 Anesthesia Tomas Mattson 1.2.840.1 1045 25264 3190350507 Methodi 07:05:00 08:04:00 Event Sunita Marie 21869.1.[address] 3.430.2.7 Hospit a .3.040688 l .8 2021-09-26 2021-09-26 [facility] 2100 078205 [place] 00:00:00 00:00:00 REBECCA Baumann Method i st 2021-09-19 2021-09-19 Travel 1.2.840.1 1.2.566.275 0272 716937 Methodi 00:00:00 00:00:[address] 3.430.2.7 0.2.7.3.698 Ho spita .3.680482 084.8 l .8 2021-09-19 2021-09-19 Orders Marrero, 1.2.840.1 [id number] 2099 261741 Methodi 00:00:00 00:00:00 Only Sharon 80799.1.[address] 3.430.2.7 Hospit a .3.644113 l .8 2021-09-19 2021-09-19 Orders Tavares, 1.2.840.1 486273638 569819 1785 Methodi 00:00:00 00:00:00 Only Peggy 14684.1.[address] 3.430.2.7 Hospit a .3.156596 l .8 2021-09-19 2021-09-19 Travel 1.2.840.1 1.2.580.099 6093 048983 Methodi 00:00:00 00:00:[address] 3.430.2.7 0.2.7.3.698 Ho spita .3.041561 084.8 l .8 2021-09-19 2021-09-19 Orders Marrero, 1.2.840.1 382222800 2099 813314 Methodi 00:00:00 00:00:00 Only Sharon 29211.1.[address] 3.430.2.7 Hospit a .3.792338 l .8 2021-09-19 2021-09-19 Orders Tavares, 1.2.840.1 668530945 073271 3754 Methodi 00:00:00 00:00:00 Only Peggy 46472.1.[address] 3.430.2.7 Hospit a .3.025614 l .8 2021-09-18 2021-09-18 Orders Propes, 1.2.840.1 044756059 439558 1311 Methodi 00:00:00 00:00:00 Only Pina 11284.1.[address] 3.430.2.7 Hospit a .3.140224 l .8 2021-09-18 2021-09-18 Orders Propes, 1.2.840.1 695969166 772238 5686 Methodi 00:00:00 00:00:00 Only Pina 72683.1.[address] 3.430.2.7 Hospit a .3.574670 l .8 2021-09-14 2021-09-14 Orders Tavares, 1.2.840.1 485473048 618496 5581 Methodi 00:00:00 00:00:00 Only Peggy 84915.1.[address] 3.430.2.7 Hospit a .3.752238 l .8 2021-09-14 2021-09-14 Orders Tavares, 1.2.840.1 211050966 080480 9517 Methodi 00:00:00 00:00:00 Only Peggy 86156.1.[address] 3.430.2.7 Hospit a .3.279382 l .8 2021-09-11 2021-09-11 Office Tavares, 1.2.840.1 916303986 760340 5794 Methodi 15:50:00 16:55:49 Visit Peggy 65468.1.[address] 3.430.2.7 Hospit a .3.693549 l .8 2021-09-11 2021-09-11 Office Tavares, 1.2.840.1 828282650 990346 9508 Methodi 15:50:00 16:55:49 Visit Peggy 61233.1.[address] 3.430.2.7 Hospit a .3.192654 l .8 2021-09-11 2021-09-11 Travel 1.2.840.1 1.2.670.746 8558 910831 Methodi 00:00:00 00:00:[address] 3.430.2.7 0.2.7.3.698 Ho spita .3.057589 084.8 l .8 2021-09-11 2021-09-11 Travel 1.2.840.1 1.2.296.763 7659 679483 Methodi 00:00:00 00:00:[address] 3.430.2.7 0.2.7.3.698 Ho spita .3.165912 084.8 l .8 2021-09-10 2021-09-10 Office Kem, 1.2.840.1 714828475 177 9977942 Methodi 10:40:00 11:03:05 Visit Rebecca Nguyen 73499.1.[address] 3.430.2.7 Hospit a .3.545125 l .8 2021-09-10 2021-09-10 Office Kem, 1.2.840.1 954546065 543 8885130 Methodi 10:40:00 11:03:05 Visit Rebecca Nguyen 81171.1.[address] 3.430.2.7 Hospit a .3.755473 l .8 2021-09-10 2021-09-10 Jaclyn Wyatt 1.2.840.1 015380291 2099 503736 Methodi 00:00:00 00:00:00 Only Jami 66676.1.[address] 3.430.2.7 Hospit a .3.747843 l .8 2021-09-10 2021-09-10 Jaclyn Wyatt 1.2.840.1 771045567 2099 147904 Methodi 00:00:00 00:00:00 Only Jami 55446.1.[address] 3.430.2.7 Hospit a .3.981658 l .8 2021-09-10 2021-09-10 Outpatient [facility] 2100 805877 [place] 00:00:00 00:00:00 REBECCA Tran Method i st 2021-08-31 2021-08-31 Raegan Vargas 1.2.840.1 569546612 380775 2196 Methodi 00:00:00 00:00:[address] Bailey 3.430.2.7 Hospi ta .3.370977 l .8 2021-08-31 2021-08-31 Refill Prasanth, 1.2.840.1 854027223 793351 7082 Methodi 00:00:00 00:00:[address] 3.430.2.7 Hospit a .3.158137 l .8 2021-08-31 2021-08-31 Refill Istre, 1.2.840.1 423149523 169723 4311 Methodi 00:00:00 00:00:[address] Bailey 3.430.2.7 Hospi ta .3.981483 l .8 2021-08-31 2021-08-31 Refill Prasanth, 1.2.840.1 962433262 319875 3295 Methodi 00:00:00 00:00:[address] 3.430.2.7 Hospit a .3.846419 l .8 2021-08-29 2021-08-29 Telephone Denisse, 1.2.840.1 535259213 2099 346857 Methodi 00:00:00 00:00:00 [place] Ray 65145.1.[address] 3.430.2.7 Hospit a .3.264747 l .8 2021-08-29 2021-08-29 Orders Istre, 1.2.840.1 972163857 184708 1926 Methodi 00:00:00 00:00:00 Only Shell 72549.1.[address] Bailey 3.430.2.7 Hospi ta .3.316717 l .8 2021-08-29 2021-08-29 Telephone Denisse, 1.2.840.1 715674573 2099 567226 Methodi 00:00:00 00:00:00 Ivy Ray 03250.1.[address] 3.430.2.7 Hospit a .3.007490 l .8 2021-08-29 2021-08-29 Orders Istre, 1.2.840.1 209385243 028069 2688 Methodi 00:00:00 00:00:00 Only Shell 38215.1.[address] Bailey 3.430.2.7 Hospi ta .3.938219 l .8 2021-08-28 2021-08-28 Travel 1.2.840.1 1.2.248.168 9298 781708 Methodi 00:00:00 00:00:[address] 3.430.2.7 0.2.7.3.698 Ho spita .3.710475 084.8 l .8 2021-08-28 2021-08-28 Travel 1.2.840.1 1.2.334.722 1840 104148 Methodi 00:00:00 00:00:[address] 3.430.2.7 0.2.7.3.698 Ho spita .3.637743 084.8 l .8 2021-08-26 2021-08-26 Emergency Mazin, 1.2.840.1 306757322 2099 829430 Methodi 16:36:00 20:08:[address] Adrienne 3.430.2.7 Hospit a .3.182916 l .8 2021-08-26 2021-08-26 Emergency Mazin, 1.2.840.1 572002386 2099 545269 Methodi 16:36:00 20:08:[address] Adrienne 3.430.2.7 Hospit a .3.344794 l .8 2021-08-26 2021-08-26 Orders Colmenter, 1.2.840.1 822756944 342 0939977 Methodi 00:00:00 00:00:00 Only Linda 99624.1.[address] 3.430.2.7 Hospit a .3.729376 l .8 2021-08-26 2021-08-26 Orders Colmenter, 1.2.840.1 966052982 952 4882889 Methodi 00:00:00 00:00:00 Only Linda 55657.1.[address] 3.430.2.7 Hospit a .3.117984 l .8 2021-08-21 2021-08-21 Orders Colmenter, 1.2.840.1 170377758 746 4614182 Methodi 00:00:00 00:00:00 Only Linda 16489.1.[address] 3.430.2.7 Hospit a .3.210830 l .8 2021-08-21 2021-08-21 Orders Colmenter, 1.2.840.1 963935487 425 1633880 Methodi 00:00:00 00:00:00 Only Linda 57917.1.[address] 3.430.2.7 Hospit a .3.179094 l .8 2021-08-14 2021-08-14 Office Colmenter, 1.2.840.1 473892248 780 2974831 Methodi 11:00:00 13:05:34 Visit Linda 13243.1.[address] 3.430.2.7 Hospit a .3.959860 l .8 2021-08-14 2021-08-14 Office Colmenter, 1.2.840.1 890760432 549 6899038 Methodi 11:00:00 13:05:34 Visit Linda 76858.1.[address] 3.430.2.7 Hospit a .3.566576 l .8 2021-08-12 2021-08-12 Office Prasanth, 1.2.840.1 942342449 514388 2526 Methodi 10:00:00 11:08:57 Visit Eddie Franco 95172.1.[address] 3.430.2.7 Hospit a .3.524846 l .8 2021-08-12 2021-08-12 Office Prasanth, 1.2.840.1 826423568 769098 6872 Methodi 10:00:00 11:08:57 Visit Eddie Franco 51445.1.[address] 3.430.2.7 Hospit a .3.625757 l .8 2021-08-12 2021-08-12 Travel 1.2.840.1 1.2.628.828 2377 782265 Methodi 00:00:00 00:00:[address] 3.430.2.7 0.2.7.3.698 Ho spita .3.024162 084.8 l .8 2021-08-12 2021-08-12 Travel 1.2.840.1 1.2.159.488 2414 774256 Methodi 00:00:00 00:00:[address] 3.430.2.7 0.2.7.3.698 Ho spita .3.081527 084.8 l .8 2021-08-08 2021-08-08 Emergency EM Lynda, H[facility] [id number] [facility] 12:48:00 19:41:00 Di 70 [facility] 2021-08-08 2021-08-08 Emergency EM Lynda, HCAKW HCAKW [id number] [facility] 12:48:00 19:41:00 Di [id number] [facility] 2021-08-08 2021-08-08 Outpatient Lynda, HCACL LABO [id number] [facility] 19:09:00 19:09:00 Di 00 [facility] 2021-08-08 2021-08-08 Transcribe Istre, 1.2.840.1 [id number] 830 2443364 Methodi 00:00:00 00:00:00 Orders Shell 17041.1.[address] Doe 3.430.2.7 Hospi ta .3.257537 l .8 2021-08-08 2021-08-08 Transcribe Istre, 1.2.840.1 937378507 896 3752452 Methodi 00:00:00 00:00:00 Orders Shell 09830.1.[address] Bailey 3.430.2.7 Hospi ta .3.345629 l .8 2021-08-06 2021-08-06 Emergency Myles Martin 1.2.840.1 [id number] Methodi 14:54:00 18:50:[address] 3.430.2.7 Hospit a .3.708654 l .8 2021-08-06 2021-08-06 Emergency Myles Martin 1.2.840.1 [id number] [id number] Methodi 14:54:00 18:50:[address] 3.430.2.7 Hospit a .3.126021 l .8 2021-08-06 2021-08-06 Travel 1.2.840.1 1.2.583.522 5789 833723 Methodi 00:00:00 00:00:[address] 3.430.2.7 0.2.7.3.698 Ho spita .3.383625 084.8 l .8 2021-08-06 2021-08-06 Travel 1.2.840.1 1.2.724.148 8475 787741 Methodi 00:00:00 00:00:[address] 3.430.2.7 0.2.7.3.698 Ho spita .3.620485 084.8 l .8 2021-08-04 2021-08-04 Office Istre, 1.2.840.1 895206960 718882 2383 Methodi 14:20:00 15:33:19 Visit Shell 18574.1.[address] Bailey 3.430.2.7 Hospi ta .3.393885 l .8 2021-08-04 2021-08-04 Office Istre, 1.2.840.1 934528581 214096 3127 Methodi 14:20:00 15:33:19 Visit Shell 40772.1.[address] Doe 3.430.2.7 Hospi ta .3.892498 l .8 2021-08-04 2021-08-04 Travel 1.2.840.1 1.2.344.294 0972 166242 Methodi 00:00:00 00:00:[address] 3.430.2.7 0.2.7.3.698 Ho spita .3.574895 084.8 l .8 2021-08-04 2021-08-04 Travel 1.2.840.1 1.2.883.544 3965 080735 Methodi 00:00:00 00:00:[address] 3.430.2.7 0.2.7.3.698 Ho spita .3.467037 084.8 l .8 2021-07-31 2021-07-31 Emergency [facility] 1.2.840.1 [id number] Methodi 21:39:00 23:28:[address] 3.430.2.7 Hospit a .3.998465 l .8 2021-07-31 2021-07-31 Emergency [facility] 1.2.840.1 [id number] Methodi 21:39:00 23:28:[address] 3.430.2.7 Hospit a .3.385098 l .8 2021-07-31 2021-07-31 Travel 1.2.840.1 1.2.802.858 3072 107091 Methodi 00:00:00 00:00:[address] 3.430.2.7 0.2.7.3.698 Ho spita .3.951279 084.8 l .8 2021-07-31 2021-07-31 Travel 1.2.840.1 1.2.423.138 5122 907114 Methodi 00:00:00 00:00:[address] 3.430.2.7 0.2.7.3.698 Ho spita .3.016207 084.8 l .8 2021-07-30 2021-07-30 Emergency Myles Martin 1.2.840.1 [id number] Methodi 13:34:00 17:16:[address] 3.430.2.7 Hospit a .3.501822 l .8 2021-07-30 2021-07-30 Emergency Myles Martin 1.2.840.1 [id number] Methodi 13:34:00 17:16:[address] 3.430.2.7 Hospit a .3.568304 l .8 2021-07-30 2021-07-30 Telephone Istre, 1.2.840.1 [id number] 2099 024053 Methodi 00:00:00 00:00:[address] Doe 3.430.2.7 Hospi ta .3.375606 l .8 2021-07-30 2021-07-30 Telephone Istre, 1.2.840.1 [id number] 2099 294607 Methodi 00:00:00 00:00:[address] [place] 3.430.2.7 Hospi ta .3.516576 l .8 2021-07-28 2021-07-28 [facility] 2570400 879 [place] 00:00:00 00:00:[address] 2021-07-24 2021-07-24 Orders Lopez, 1.2.840.1 [id number] 27103 Methodi 00:00:00 00:00:00 Only Maureen 61123.1.[address] 3.430.2.7 Hospit a .3.994943 l .8 2021-07-24 2021-07-24 Orders Lopez, 1.2.840.1 483105802 42 Methodi 00:00:00 00:00:00 Only Maureen 18312.1.[address] 3.430.2.7 Hospit a .3.084069 l .8 2021-07-23 2021-07-23 Orders Istre, 1.2.840.1 384324310 245588 6173 Methodi 00:00:00 00:00:00 Only Shell 99252.1.[address] Doe 3.430.2.7 Hospi ta .3.324037 l .8 2021-07-23 2021-07-23 Orders Istre, 1.2.840.1 291453514 471982 1461 Methodi 00:00:00 00:00:00 Only Shell 09585.1.[address] [place] 3.430.2.7 Hospi ta .3.102095 l .8 2021-07-21 2021-07-21 Orders Istre, 1.2.840.1 [id number] 231860 2006 Methodi 00:00:00 00:00:00 Only Shell 49025.1.[address] [place] 3.430.2.7 Hospi ta .3.031996 l .8 2021-07-21 2021-07-21 Orders Istre, 1.2.840.1 804697843 060385 9848 Methodi 00:00:00 00:00:00 Only Shell 63975.1.[address] [place] 3.430.2.7 Hospi ta .3.278835 l .8 2021-07-15 2021-07-15 Telephone Oleksandr, 1.2.840.1 [id number] 21 [id number] Methodi 00:00:00 00:00:[address] 3.430.2.7 Hospit a .3.362092 l .8 2021-07-15 2021-07-15 Travel 1.2.840.1 1.2.536.024 1267 942138 Methodi 00:00:00 00:00:[address] 3.430.2.7 0.2.7.3.698 Ho spita .3.267977 084.8 l .8 2021-07-15 2021-07-15 Telephone Oleksandr, 1.2.840.1 [id number] 21 [id number] Methodi 00:00:00 00:00:[address] 3.430.2.7 Hospit a .3.045162 l .8 2021-07-15 2021-07-15 Travel 1.2.840.1 1.2.028.841 2326 819620 Methodi 00:00:00 00:00:[address] 3.430.2.7 0.2.7.3.698 Ho spita .3.446245 084.8 l .8 2021-07-10 2021-07-10 Treatment Shell Vargasrand 1.2.840.1 [id number] [id number] Methodi 09:00:00 10:00:00 Peggy Esparza 22080.1.[address] [place], Smooth 3.430.2.7 H ospita .3.518106 l .8 2021-07-10 2021-07-10 Treatment Shell Vargasd 1.2.840.1 [id number] [id number] Methodi 09:00:00 10:00:00 Peggy Esparza 47400.1.[address] [place], Smooth 3.430.2.7 H ospita .3.387474 l .8 2021-07-10 2021-07-10 Plan of 1.2.840.1 [id number] 693996 3730 Methodi 00:00:00 00:00:[address] Documentat 3.430.2.7 Hos margie ion .3.975869 l .8 2021-07-10 2021-07-10 Plan of 1.2.840.1 676698736 704672 3163 Methodi 00:00:00 00:00:[address] Documentat 3.430.2.7 Hos margie ion .3.132008 l .8 2021-07-09 2021-07-09 Travel 1.2.840.1 1.2.611.565 6613 122100 Methodi 00:00:00 00:00:[address] 3.430.2.7 0.2.7.3.698 Ho spita .3.921557 084.8 l .8 2021-07-09 2021-07-09 Orders Istre, 1.2.840.1 [id number] Methodi 00:00:00 00:00:00 Only Shell 03255.1.[address] Doe 3.430.2.7 Hospi ta .3.064653 l .8 2021-07-09 2021-07-09 Travel 1.2.840.1 1.2.211.967 0625 122100 Methodi 00:00:00 00:00:[address] 3.430.2.7 0.2.7.3.698 Ho spita .3.660918 084.8 l .8 2021-07-09 2021-07-09 Orders Istre, 1.2.840.1 [id number] Methodi 00:00:00 00:00:00 Only Shell 69143.1.[address] Doe 3.430.2.7 Hospi ta .3.002200 l .8 2021-07-03 2021-07-03 Travel 1.2.840.1 1.2.402.066 9510 397767 Methodi 00:00:00 00:00:[address] 3.430.2.7 0.2.7.3.698 Ho spita .3.081624 084.8 l .8 2021-07-03 2021-07-03 Travel 1.2.840.1 1.2.939.099 2070 600573 Methodi 00:00:00 00:00:[address] 3.430.2.7 0.2.7.3.698 Ho spita .3.240032 084.8 l .8 2021-06-30 2021-06-30 Emergency [facility] 1.2.840.1 [id number] Methodi 14:43:00 20:06:[address] 3.430.2.7 Hospit a .3.968522 l .8 2021-06-30 2021-06-30 [facility] 1.2.840.1 [id number] Methodi 14:43:00 20:06:[address] 3.430.2.7 Hospit a .3.640016 l .8 2021-06-19 2021-06-19 Orders [place], 1.2.840.1 454064671 621951 6027 Methodi 00:00:00 00:00:00 Only Susanne 08382.1.[address] 3.430.2.7 Hospit a .3.017806 l .8 2021-06-19 2021-06-19 Orders [place], 1.2.840.1 922498376 175534 8865 Methodi 00:00:00 00:00:00 Only Susanne 52910.1.[address] 3.430.2.7 Hospit a .3.515077 l .8 2021-06-18 2021-06-18 Orders Tran, 1.2.840.1 627639452 496567 7902 Methodi 00:00:00 00:00:00 Only Kortney 22858.1.[address] 3.430.2.7 Hospit a .3.257822 l .8 2021-06-18 2021-06-18 Telephone Jessica, 1.2.840.1 [id number] 582 [id number] Methodi 00:00:00 00:00:[address] 3.430.2.7 Hospit a .3.097120 l .8 2021-06-18 2021-06-18 Orders Marc, 1.2.840.1 655900727 074894 0322 Methodi 00:00:00 00:00:00 Only Kortney 91951.1.[address] 3.430.2.7 Hospit a .3.515938 l .8 2021-06-18 2021-06-18 Telephone Jessica, 1.2.840.1 [id number] 765 [id number] Methodi 00:00:00 00:00:[address] 3.430.2.7 Hospit a .3.820089 l .8 2021-06-16 2021-06-16 Office Prasanth, 1.2.840.1 [id number] 807317 1484 Methodi 11:40:00 13:03:55 Visit Eddie Franco 72985.1.[address] 3.430.2.7 Hospit a .3.454815 l .8 2021-06-16 2021-06-16 Office Prasanth, 1.2.840.1 [id number] 243155 1379 Methodi 11:40:00 13:03:55 Visit Eddie Franco 05765.1.[address] 3.430.2.7 Hospit a .3.042802 l .8 2021-06-16 2021-06-16 Travel 1.2.840.1 1.2.989.185 3607 154954 Methodi 00:00:00 00:00:[address] 3.430.2.7 0.2.7.3.698 Ho spita .3.399259 084.8 l .8 2021-06-16 2021-06-16 Travel 1.2.840.1 1.2.322.190 4749 923603 Methodi 00:00:00 00:00:[address] 3.430.2.7 0.2.7.3.698 Ho spita .3.235914 084.8 l .8 2021-06-03 2021-06-03 Refill [place], 1.2.840.1 679253431 944643 5721 Methodi 00:00:00 00:00:[address] 3.430.2.7 Hospit a .3.741854 l .8 2021-06-03 2021-06-03 Telephone Abreu, 1.2.840.1 [id number] 2099 336783 Methodi 00:00:00 00:00:[address] 3.430.2.7 Hospit a .3.285609 l .8 2021-06-03 2021-06-03 Refill [place], 1.2.840.1 [id number] 714665 5211 Methodi 00:00:00 00:00:[address] 3.430.2.7 Hospit a .3.738063 l .8 2021-06-03 2021-06-03 Telephone Brady, 1.2.840.1 [id number] 2099 294675 Methodi 00:00:00 00:00:[address] 3.430.2.7 Hospit a .3.400581 l .8 2021-06-02 2021-06-02 Emergency Gunnar, 1.2.840.1 [id number] 2 [id number] Methodi 10:56:00 13:23:00 Mario Coronadoter 53122.1.1 606 s t 3.430.2.7 Hospit a .3.751976 l .8 2021-06-02 2021-06-02 Emergency Gunnar, 1.2.840.1 [id number] 2 [id number] Methodi 10:56:00 13:23:00 Mario Coronadoter 73584.1.1 606 s t 3.430.2.7 Hospit a .3.473230 l .8 2021-06-02 2021-06-02 Orders Istre, 1.2.840.1 293417669 101307 0935 Methodi 00:00:00 00:00:00 Only Shell 19089.1.[address] Bailey 3.430.2.7 Hospi ta .3.867359 l .8 2021-06-02 2021-06-02 Orders Istre, 1.2.840.1 549668338 109853 3477 Methodi 00:00:00 00:00:00 Only Shell 68003.1.[address] Bailey 3.430.2.7 Hospi ta .3.868023 l .8 2021-05-30 2021-05-30 Treatment Shell Vargasd 1.2.840.1 373077384 6593279730 Methodi 10:00:00 11:00:00 [place], Smooth 36041.1.[address] 3.430.2.7 Hospit a .3.295316 l .8 2021-05-30 2021-05-30 Treatment Shell Vargasd 1.2.840.1 848387038 [id number] Methodi 10:00:00 11:00:00 AlcalaSmooth dunlap [address]01[address] 3.430.2.7 Hospit a .3.331341 l .8 2021-05-28 2021-05-28 Orders Istre, 1.2.840.1 399712140 964151 7833 Methodi 00:00:00 00:00:00 Only Shell 64790.1.[address] Doe 3.430.2.7 Hospi ta .3.175604 l .8 2021-05-28 2021-05-28 Orders Istre, 1.2.840.1 775289052 656403 2564 Methodi 00:00:00 00:00:00 Only Shell 51886.1.[address] Doe 3.430.2.7 Hospi ta .3.777391 l .8 2021-05-27 2021-05-27 Travel 1.2.840.1 1.2.493.398 8679 520981 Methodi 00:00:00 00:00:[address] 3.430.2.7 0.2.7.3.698 Ho spita .3.631969 084.8 l .8 2021-05-27 2021-05-27 Travel 1.2.840.1 1.2.030.811 0980 266990 Methodi 00:00:00 00:00:[address] 3.430.2.7 0.2.7.3.698 Ho spita .3.137818 084.8 l .8 2021-05-19 2021-05-19 Evaluation Shell Vargas 1.2.840.1 428151680 [id number] Methodi 11:00:00 12:00:00 Peggy Esparza 87139.1.[address] [place], Smooth 3.430.2.7 H ospita .3.222588 l .8 2021-05-19 2021-05-19 Evaluation Shell Vargas 1.2.840.1 569589203 9299126016 Methodi 11:00:00 12:00:00 Peggy Esparza 05966.1.[address] [place], Smooth 3.430.2.7 H ospita .3.728793 l .8 2021-05-19 2021-05-19 Plan of 1.2.840.1 634919635 054959 3921 Methodi 00:00:00 00:00:[address] Documentat 3.430.2.7 Hos margie ion .3.701272 l .8 2021-05-19 2021-05-19 Travel 1.2.840.1 1.2.286.739 7831 272907 Methodi 00:00:00 00:00:[address] 3.430.2.7 0.2.7.3.698 Ho spita .3.454863 084.8 l .8 2021-05-19 2021-05-19 Plan of 1.2.840.1 746191773 675986 5290 Methodi 00:00:00 00:00:[address] Documentat 3.430.2.7 Hos margie ion .3.548125 l .8 2021-05-19 2021-05-19 Travel 1.2.840.1 1.2.044.962 3826 120318 Methodi 00:00:00 00:00:[address] 3.430.2.7 0.2.7.3.698 Ho spita .3.650740 084.8 l .8 2021-05-09 2021-05-09 Travel 1.2.840.1 1.2.100.169 6058 845239 Methodi 00:00:00 00:00:[address] 3.430.2.7 0.2.7.3.698 Ho spita .3.710829 084.8 l .8 2021-05-09 2021-05-09 Travel 1.2.840.1 1.2.144.362 5776 365499 Methodi 00:00:00 00:00:[address] 3.430.2.7 0.2.7.3.698 Ho spita .3.183503 084.8 l .8 2021-05-09 2021-05-09 [facility] [id number] 977 [place] 00:00:00 00:00:[address] PEGGY [address] 2021-05-06 2021-05-06 Orders Istre, 1.2.840.1 470326236 326820 5131 Methodi 00:00:00 00:00:00 Only Shell 65194.1.[address] Doe 3.430.2.7 Hospi ta .3.068088 l .8 2021-05-06 2021-05-06 Orders Istre, 1.2.840.1 398164326 040401 0323 Methodi 00:00:00 00:00:00 Only Shell 32184.1.[address] Bailey 3.430.2.7 Hospi ta .3.753502 l .8 2021-05-05 2021-05-05 Outpatient [facility] [id number] 738 [place] 00:00:00 00:00:00 PEGGY [place] [facility] 2021-05-04 2021-05-04 Emergency Oghogho, 1.2.840.1 [id number] 542 3288182 Methodi 14:39:00 18:56:[address] 3.430.2.7 Hospit a .3.449999 l .8 2021-05-04 2021-05-04 Emergency Oghogho, 1.2.840.1 767441354 024 8738224 Methodi 14:39:00 18:56:[address] 3.430.2.7 Hospit a .3.603173 l .8 2021-05-04 2021-05-04 Travel 1.2.840.1 1.2.444.195 7740 547206 Methodi 00:00:00 00:00:[address] 3.430.2.7 0.2.7.3.698 Ho spita .3.882551 084.8 l .8 2021-05-04 2021-05-04 Travel 1.2.840.1 1.2.871.556 3188 751033 Methodi 00:00:00 00:00:[address] 3.430.2.7 0.2.7.3.698 Ho spita .3.650340 084.8 l .8 2021-05-02 2021-05-02 [facility] 38541 9559 [place] 00:00:00 00:00:00 [facility] 2021-04-30 2021-04-30 Travel 1.2.840.1 1.2.614.432 2754 388670 Methodi 00:00:00 00:00:[address] 3.430.2.7 0.2.7.3.698 Ho spita .3.639080 084.8 l .8 2021-04-30 2021-04-30 Travel 1.2.840.1 1.2.389.508 7971 766254 Methodi 00:00:00 00:00:[address] 3.430.2.7 0.2.7.3.698 Ho spita .3.953479 084.8 l .8 2021-04-28 2021-04-28 Orders Istre, 1.2.840.1 958320886 226870 3997 Methodi 00:00:00 00:00:00 Only Shell 30105.1.[address] Bailey 3.430.2.7 Hospi ta .3.766494 l .8 2021-04-28 2021-04-28 Orders Istre, 1.2.840.1 416317343 742984 2055 Methodi 00:00:00 00:00:00 Only Shell 55412.1.[address] Doe 3.430.2.7 Hospi ta .3.008351 l .8 2021-04-17 2021-04-17 Office Istre, 1.2.840.1 380215324 293613 5554 Methodi 15:00:00 15:00:06 Visit Shell 29052.1.[address] Doe 3.430.2.7 Hospi ta .3.344753 l .8 2021-04-17 2021-04-17 Office Istre, 1.2.840.1 773468006 578207 5776 Methodi 15:00:00 15:00:06 Visit Shell 30915.1.[address] Doe 3.430.2.7 Hospi ta .3.341187 l .8 2021-04-16 2021-04-16 Travel 1.2.840.1 1.2.216.648 1271 803993 Methodi 00:00:00 00:00:[address] 3.430.2.7 0.2.7.3.698 Ho spita .3.689833 084.8 l .8 2021-04-16 2021-04-16 Travel 1.2.840.1 1.2.013.048 9708 882767 Methodi 00:00:00 00:00:[address] 3.430.2.7 0.2.7.3.698 Ho spita .3.406173 084.8 l .8 2021-04-12 2021-04-12 Emergency Svach, 1.2.840.1 [id number] 2099 844621 Methodi 15:47:00 22:48:00 Candelaria R [address]15.1.[address] 3.430.2.7 Hospit a .3.838159 l .8 2021-04-08 2021-04-08 Travel 1.2.840.1 1.2.688.060 6057 512990 Methodi 00:00:00 00:00:[address] 3.430.2.7 0.2.7.3.698 Ho spita .3.856574 084.8 l .8 2021-03-28 2021-03-28 Office Rj Khoury [facility] [id number] [place] 08:30:00 09:30:00 Visit Jackie [facility] 2021-03-28 2021-03-28 [facility] [id number] 6844 [place] 00:00:00 00:00:00 [facility] 2021-03-14 2021-03-14 [facility] [id number] 1468 [place] 00:00:00 00:00:00 [facility] 2021-03-03 2021-03-03 Telephone Alicia, 1.2.840.1 [id number] 2099 [id number] Methodi 11:20:00 11:48:51 Consult Shell 28658.1.[address] Doe 3.430.2.7 Hospi ta .3.880834 l .8 2021-02-27 2021-02-27 Travel 1.2.840.1 1.2.509.717 6851 806725 Methodi 00:00:00 00:00:[address] 3.430.2.7 0.2.7.3.698 spita .3.747358 084.8 l .8 2021-02-19 2021-02-19 Outpatient CHARLA, [facility] 2100 [id number] [place] 00:00:00 00:00:00 PIMPRAPA 626 Metho di 2021-02-17 2021-02-17 Outpatient [facility] [id number] 297 [place] 00:00:00 00:00:00 482 Method i 2021-02-17 2021-02-17 Outpatient STACI, [facility] [id number] 406 [place] 00:00:00 00:00:00 PROCTOR 706 Method i 2021-02-10 2021-02-10 Outpatient TAVARES, [facility] [id number] 790 [place] 00:00:00 00:00:00 PEGGY 856 Method i 2021-02-07 2021-02-07 Outpatient ALICIA, [facility] [id number] 637 [place] 00:00:00 00:00:00 SHELL 793 Method i 2021-01-30 2021-01-31 Outpatient IMELDA, [facility] [id number] [id number] 174 [place] 00:00:00 00:00:00 KRISTY 451 Method i 2021-01-25 2021-01-25 Emergency CONSTANTIN KENA [facility] 064 [id number] 35768 [place] 00:00:00 00:00:00 190 Method i 2021-01-24 2021-01-24 Outpatient CHARLA, [facility] 2100 [id number] [place] 00:00:00 00:00:00 PIMPRAPA 711 Metho di 2021-01-09 2021-01-09 Outpatient [facility] [id number] 646 [place] 00:00:00 00:00:00 247 Method i 2020-12-29 2020-12-29 Emergency VASQUEZ, [facility] 064 [id number] 98 [place] 00:00:00 00:00:00 CRISTÓBAL 225 Method i 2020-12-23 2020-12-23 Outpatient PRASANTH, [facility] [id number] 498 [place] 00:00:00 00:00:00 EDDIE 305 Method i 2020-12-11 2020-12-11 Emergency VASQUEZ, [facility] 064 [id number] 96 [place] 00:00:00 00:00:00 CRISTÓBAL 030 Method i 2020-12-08 2020-12-08 Emergency COURTNEY, [facility] 06 [id number] 26 [place] 00:00:00 00:00:00 TRUNG 699 Method i 2020-11-25 2020-11-26 Office Doug Estevez [facility] Encounter/ Legacy 00:00:00 00:00:00 Visit Symone Moreau474 0391 Communi 139770 [facility] 2020-11-25 2020-11-26 Office Doug Estevez [facility] Encounter/ Legacy 00:00:00 00:00:00 Visit Symone Moreau [id number] 1593 Communi 700778 [facility] 2020-11-18 2020-11-18 Outpatient SMALL, [facility] [id number] 074 [place] 00:00:00 00:00:00 PROCTOR 729 Method i 2020-11-02 2020-11-02 Emergency HALEY, [facility] [id number] [id number] 062 [place] 00:00:00 00:00:00 ROGER 241 Method i 2020-10-29 2020-10-29 Outpatient SMALL, [facility] [id number] 857 [place] 00:00:00 00:00:00 PROCTOR 983 Method i 2020-10-25 2020-10-25 Outpatient VEJPONVIRYA, [facility] 2100 [id number] [place] 00:00:00 00:00:00 PIMPRAPA 573 Metho di 2020-10-24 2020-10-24 Outpatient VEJPONGSA, [facility] [id number] [id number] [place] 00:00:00 00:00:00 PIMPRAPA 921 Metho di 2020-10-18 2020-10-19 Emergency HOPE, [facility] 06 [id number] 58 [place] 00:00:00 00:00:00 TRUNG 724 Method i 2020-10-18 2020-10-18 Outpatient SMALL, [facility] [id number] 110 [place] 00:00:00 00:00:00 PROCTOR 224 Method i 2020-10-11 2020-10-11 Emergency COURTNEY, [place] [address] [id number] 52 [place] 00:00:00 00:00:00 TRUNG 080 Method i 2020-10-09 2020-10-09 Outpatient PRASANTH, [facility] [id number] 499 [place] 00:00:00 00:00:00 EDDIE [address] 2020-10-01 2020-10-01 Outpatient AHMED, [facility] [id number] 980 [place] 00:00:00 00:00:00 MOHAMMAD 768 Metho di 2020-09-26 2020-09-26 Outpatient SMALL, [facility] [id number] 765 [place] 00:00:00 00:00:00 PROCTOR 047 Method i 2020-09-13 2020-09-13 Outpatient PRASANTH, [facility] [id number] 045 [place] 00:00:00 00:00:00 EDDIE 249 Method i 2020-09-11 2020-09-11 Outpatient VEJPONGSA, [facility] [id number] [id number] [place] 00:00:00 00:00:00 PIMPRAPA 754 Metho di 2020-08-23 2020-08-23 Outpatient AHMED, [facility] [id number] 605 [place] 00:00:00 00:00:00 MOHAMMAD 132 Metho di 2020-08-19 2020-08-21 Outpatient MELTON, [facility] [id number] 265 [place] 00:00:00 00:00:00 TRUNG 187 Method i 2020-07-31 2020-08-01 Outpatient ARREDONDO, [facility] [id number] 975 [place] 00:00:00 00:00:00 RG 628 Met hodi 2020-07-16 2020-07-16 Emergency HOPE, [facility] 064 [id number] 18 [place] 00:00:00 00:00:00 TRUNG 600 Method i 2020-07-05 2020-07-05 Outpatient BROCK, [facility] [id number] [place] 00:00:00 00:00:00 [facility] 2020-07-05 2020-07-05 Emergency VASQUEZ, [facility] 064 [id number] 62 [place] 00:00:00 00:00:00 CRISTÓBAL [address] 2020-06-28 2020-06-28 Outpatient SMALL, [facility] [id number] 302 [place] 00:00:00 00:00:00 PROCTOR [address] 2020-06-27 2020-06-27 Outpatient PRASANTH, [facility] [id number] 221 [place] 00:00:00 00:00:00 EDDIE [address] 2020-06-24 2020-06-24 Outpatient ISTRE, [facility] [id number] 844 [place] 00:00:00 00:00:00 SHELL 509 Method i 2020-06-19 2020-06-20 Emergency GNOSTICISM, [facility] 064 [id number] 53 [place] 00:00:00 00:00:00 NADIM 685 Method i 2020-06-11 2020-06-11 Outpatient STACI, [facility] [id number] 229 [place] 00:00:00 00:00:00 PROCTOR [address] 2020-06-11 2020-06-11 Outpatient STACI, [facility] [id number] 908 [place] 00:00:00 00:00:00 PROCTOR 956 Method i 2020-06-06 2020-06-06 Outpatient ISTRE, [facility] [id number] 806 [place] 00:00:00 00:00:00 SHELL 498 Method i 2020-06-03 2020-06-03 Outpatient ISTRE, [facility] [id number] 559 [place] 00:00:00 00:00:00 SHELL 193 Method i 2020-06-03 2020-06-03 Outpatient ISTRE, [facility] [id number] 559 [place] 00:00:00 00:00:00 SHELL 363 Method i 2020-05-26 2020-05-27 Outpatient SMALL, [facility] 953 [id number] 252 [place] 00:00:00 00:00:00 HAYLEE 766 Method i 2020-05-24 2020-05-24 Emergency JOSSY, [facility] 064 [id number] 24 [place] 00:00:00 00:00:00 BELKIS [address] 2020-05-23 2020-05-23 Emergency FORMAN, [facility] 064 [id number] 56 [place] 00:00:00 00:00:00 TANIA [address] 2020 2020 Outpatient ISTRE, [facility] [id number] 895 [place] 00:00:00 00:00:00 SHELL 882 Method i 2020 2020 Emergency KI, [facility] 064 [id number] 65 [place] 00:00:00 00:00:00 KALIF 304 Method i 2020-05-20 2020-05-20 Outpatient ISTRE, [facility] [id number] 407 [place] 00:00:00 00:00:00 SHELL 217 Method i 2020-05-13 2020-05-13 Outpatient CARTER, [facility] [id number] 41 [place] 00:00:00 00:00:00 TRAJULIO CESAR [place] [facility] 2020-05-11 2020-05-11 Emergency HOPE, [facility] 06 [id number] 87 [place] 00:00:00 00:00:00 TRUNG 164 Method i 2020-05-07 2020-05-07 Outpatient ROGER ZAPATA [facility] [id number] [place] 07:48:18 07:48:18 Health 2020-04-15 2020-04-15 Emergency KENA KILLIAN [facility] 064 [id number] [place] 00:00:00 00:00:00 597 Method i 2020-04-01 2020-04-01 Emergency KI, [facility] 06 [id number] 10 [place] 00:00:00 00:00:00 KALIF 631 Method i 2020-03-23 2020-03-24 Inpatient CHRISTA, [facility] 089 [id number] [place] 00:00:00 00:00:00 STEPHY 252 Method i 2020-03-23 2020-03-23 Emergency HOPE, [facility] 064 [id number] 79 [place] 00:00:00 00:00:00 TRUNG 603 Method i 2020-03-20 2020-03-20 Emergency ALTAGRACIA VILLASENOR [facility] 064 [id number] [place] 00:00:00 00:00:00 875 Method i 2020-02-29 2020-03-01 Emergency DE CRANDALL, [facility] 064 [id number] [place] 00:00:00 00:00:00 EMY 73Toni Sd thodi 2020-02-05 2020-02-06 Emergency ENE, [facility] 064 [id number] 6767 [place] 00:00:00 00:00:00 KEM 185 Meth john 2020-02-03 2020-02-03 Emergency DE KARLEY, [facility] 064 [id number] [place] 00:00:00 00:00:00 BERNARDNELY [address] 2019-12-20 2019-12-21 Emergency ENE, [facility] [id number] 0117 [place] 00:00:00 00:00:00 KEM [address] 2019-12-14 2019-12-14 Emergency KI, [facility] 064 [id number] 06 [place] 00:00:00 00:00:00 KALIF [address] 2019-12-11 2019-12-11 Emergency HOPE, [facility] 064 [id number] 68 [place] 00:00:00 00:00:00 TRUNG [address] 2019-12-08 2019-12-08 Emergency SUSHIL, [facility] [id number] [id number] 034 [place] 00:00:00 00:00:00 ISAC [address] 2019-11-24 2019-11-24 Outpatient ROGER ZAPATA [facility] [id number] [place] 00:00:00 00:00:00 Health 2019-11-21 2019-11-21 Emergency NELSON VILLAGRAN [facility] [id number] [place] 00:00:00 00:00:[address] 2019-11-14 2019-11-14 Outpatient ROGER ZAPATA [facility] [id number] [place] 06:55:06 06:55:06 Health 2019-11-13 2019-11-13 Outpatient [facility] [id number] [place] 00:00:00 00:00:00 Health 2019-11-10 2019-11-11 Emergency HOPE, [facility] 064 [id number] 84 [place] 00:00:00 00:00:00 TRUNG [address] 2019-11-07 2019-11-07 Outpatient [facility] [id number] [place] 14:24:03 14:24:03 Health 2019-11-07 2019-11-07 Outpatient [facility] [id number] [place] 12:22:44 12:22:44 Health 2019-11-07 2019-11-07 Outpatient [facility] [id number] 19 [place] 00:00:00 00:00:00 Health 2019-11-07 2019-11-07 Outpatient [facility] [id number] 59 [place] 00:00:00 00:00:00 Health 2019-10-30 2019-10-30 Outpatient [facility] [id number] [place] 11:49:58 11:49:58 Health 2019-10-30 2019-10-30 Outpatient [facility] [id number] 74 [place] 00:00:00 00:00:00 Health 2019-10-12 2019-10-12 Outpatient [facility] [id number] [place] 00:00:00 00:00:00 2019-10-10 2019-10-10 Outpatient [facility] [id number] 38 [place] 08:15:33 08:15:33 Health 2019-10-09 2019-10-09 Outpatient [facility] [id number] [place] 00:00:00 00:00:00 Health 2019-09-25 2019-09-25 Outpatient [facility] [id number] [place] 00:00:00 00:00:00 Health 2019-09-19 2019-09-19 Outpatient [facility] [id number] [place] 15:17:15 15:17:15 Health 2019-09-12 2019-09-12 Outpatient [facility] [id number] [place] 09:33:27 09:33:27 Health 2019-09-12 2019-09-12 Outpatient [facility] [id number] [place] 08:35:47 08:35:47 Health 2019-09-12 2019-09-12 Outpatient [facility] [id number] [place] 00:00:00 00:00:00 2019-09-09 2019-09-09 Emergency HOPE, [facility] [id number] 57 [place] 00:00:00 00:00:00 TRUNG [address] 2019-08-25 2019-08-25 Outpatient [facility] [id number] [place] 06:54:32 06:54:32 Health 2019-08-24 2019-08-24 Outpatient [facility] [id number] [place] 00:00:00 00:00:00 Health 2019-08-23 2019-08-23 Outpatient [facility] [id number] [place] 00:00:00 00:00:00 Health 2019-08-05 2019-08-05 Emergency [facility] [id number] [place] 00:00:00 00:00:00 OTILIO, [address] 2019-08-03 2019-08-03 Emergency WILFREDZOHRA [facility]D [facility] [id number] [place] 00:00:00 00:00:[address] 2019-07-24 2019-07-24 Outpatient [facility] [id number] [place] 08:35:14 08:35:14 Health 2019-06-21 2019-06-21 Outpatient [facility] [id number] [place] 00:00:00 00:00:00 Health 2019-06-15 2019-06-16 Emergency [facility], [facility] [id number] [place] 00:00:00 00:00:00 TRUNG [address] 2019-06-15 2019-06-15 Emergency [facility] MED [id number] [place] 14:03:00 14:03:00 Health 2019-06-14 2019-06-14 Outpatient [facility] [id number] [place] 00:00:00 00:00:00 [facility] 2019-06-08 2019-06-08 Outpatient [facility] [id number] [place] 13:49:26 13:49:26 Health 2019-06-08 2019-06-08 Outpatient [facility] [id number] [place] 13:11:00 13:11:00 [facility] 2019-06-08 2019-06-08 Outpatient [facility] [id number] [place] 00:00:00 00:00:00 [facility] 2019-06-07 2019-06-07 Emergency [facility] [id number] [place] 12:06:12 12:06:12 Health 2019-06-07 2019-06-07 Emergency [facility] MED [id number] [place] 10:57:48 10:57:48 Health 2019-03-15 2019-03-15 Outpatient [facility] [id number] [place] 14:00:36 14:00:36 Health 2019-03-15 2019-03-15 Outpatient [facility] [id number] [place] 12:20:09 12:20:09 Health 2019-03-15 2019-03-15 Outpatient [facility] [id number] [place] 00:00:00 00:00:00 Health 2019-01-25 2019-01-25 Outpatient [facility] [id number] [place] 10:20:47 10:20:47 Health 2019-01-13 2019-01-13 Outpatient [facility] [id number] [place] 10:25:55 10:25:55 Health 2019-01-03 2019-01-03 Outpatient [facility] [id number] [place] 10:33:43 10:33:43 Health 2019-01-03 2019-01-03 Outpatient [facility] [id number] [place] 08:40:50 08:40:50 Health 2019-01-03 2019-01-03 Outpatient [facility] [id number] [place] 07:58:31 07:58:31 Health 2019-01-03 2019-01-03 Outpatient [facility] [id number] [place] 00:00:00 00:00:00 [facility] 2018-12-29 2018-12-29 Outpatient [facility] [id number] [place] 00:00:00 00:00:00 [facility] 2018-12-27 2018-12-27 Outpatient [facility] [id number] [place] 00:00:00 00:00:00 [facility] 2018-12-26 2018-12-26 Outpatient [facility] [id number] [place] 16:37:58 16:37:58 Health 2018-12-09 2018-12-09 Outpatient [facility] [id number] [place] 16:51:56 16:51:56 Health 2018-12-09 2018-12-09 Outpatient [facility] [id number] [place] 14:15:31 14:15:31 Health 2018-12-09 2018-12-09 Outpatient [facility] [id number] [place] 00:00:00 00:00:00 [facility] 2018-11-26 2018-11-26 Emergency [facility] MED [id number] [place] 16:08:40 16:08:40 [facility] 2018-01-17 2018-01-17 Outpatient MYRNA DENSON [facility] [id number] [place] 10:49:00 12:30:00 [facility] 2017-12-28 2017-12-28 Outpatient Mark BEAVERSAQUINO, [facility] [id number] [place] 10:12:00 12:25:00 PAUL [facility] 2017-12-20 2017-12-20 Outpatient E MYRNA CEDENO [facility] [id number] [place] 23:13:00 23:50:00 [facility] 2017-10-15 2017-10-15 Outpatient E TIJERINA [facility] [id number] [place] 09:57:00 11:15:00 WASIM [facility] Results Test Description Test Time Test Comments Results Result Comments Source ECG 12 lead 2022-03-24 04:27:49 Test Item Value Reference Range Interpretation Comme nts Ventricular rate (test code = 253) Atrial rate (test code = 255) WA interval (test code = 266) QRSD interval [...] of 28-NOV-2021 10:26,-No significant change was found- [facility] 12 [id number] 04:27:49 Test Item Value Reference Range Interpretation Comments Ventricular rate (test code = 253) Atrial rate (test code = 255) WA interval (test code = 266) QRSD interval (test code = 260) QT interval (test code = 264) QTC interval (test code = 265) P axis 1 (test code = 267) QRS axis 1 (test code = 268) T wave axis (test code = 270) EKG impression (test Normal sinus rhythm code = 273) with sinus arrhythmia-Normal ECG-In automated comparison with ECG of 28-NOV-2021 10:26,-No significant change was found- [facility] [id number] 23:39:00 Test Item Value Reference Range Interpretation Comments Urine culture (test SEE COMMENT Bacteriu brandon screen code = 0711914) negative. [facility] [id number] 23:39:00 Test Item Value Reference Range Interpretation Comments Urine culture (test SEE COMMENT Bacteriu brandon screen code = 0927538) negative. [facility] [id number] 23:39:00 Test Item Value Reference Range Interpretation Comments Urine culture (test SEE COMMENT Bacteriu brandon screen code = 6973474) negative. [facility] [id number] 23:39:00 Test Item Value Reference Range Interpretation Comments Urine culture (test SEE COMMENT Bacteriu brandon screen code = 9161138) negative. [facility] [id number] 23:39:00 Test Item Value Reference Range Interpretation Comments Urine culture (test SEE COMMENT Bacteriu brandon screen code = 2216230) negative. [facility] [id number] 22:17:00 Test Item Value Reference Range Interpretation Comments Hepatitis B surface NON-REACTIVE NON-REACTIVE Ag (test code = 5196-1) RAC (test code = RAC) Performing Organization Information: Site ID: BEBA Name: [facility] Address: [address] [place] [address] Director: Rajinder Grant [facility] with reflex to [id number] 22:17:00 Test Item Value Reference Range Interpretation Comments RPR (test code = NON-REACTIVE NON-REACTIVE 66372-2) RAC (test code = Performing Organization RAC) Information: Site ID: RGA Name: [facility] Address: [address] [place] [address] Director: Rajinder Grant [facility] C virus (HCV), quantitative [id number] 22:17:00 Test Item Value Reference Interpretation Comments Range HCV RNA, <15 NOT DETECTED NOT DETECTED quantitative PCR IU/mL (test code = 54650-5) HCV viral log <1.18 NOT DETECTED NOT DETECTED This bhupendra t was (test code = Log IU/mL performed using 36251-5) Real-Time Polym erase ChainReaction. Reportable Rang e: 15 IU/mL to 100,00 0,000 IU/mL(1.18 Log IU/mL to 8.00 Log IU/ mL). The analytical performance characteristics of thisassay have been determined by [facility]. Th e modifications h ave not been cleare d or approved bythe FDA. This assay has been validated pursu ant to the CLIA regulations and is used for clinic al purposes. For m ore information on this test, go to:http://educa tion. GlucoSentient /faq/EQL97y3(Th is link is being provided for informational/e ducat ional purposes only.) RAC (test code = Performing RAC) Organization Information: Site ID: IG Name: [facility] Address: [address] [place] [address] Director: Dr. Rajinder Grant [facility] C [id number] 22:17:00 Test Item Value Reference Interpretation Comments Range Hepatitis C Ab (test REACTIVE NON-REACTIVE A code = 83546-4) Signal/cutoff (test >11.00 See_Comment H Based o n this code = 64093-9) result, the sample will be testedf or [...] RAC) Organization Information: Site ID: RGA Name: [facility] Address: [address] [place] [address] Director: Rajinder Grant Lab Interpretation Abnormal (test code = 62756-9) [facility]stHSV type 1/2 combined Ab, [id number] 22:17:00 Test Item Value Reference Interpretation Comments Range HSV 1 IgM NEGATIVE (test code = 94820-6) HSV 2 IgM NEGATIVE REFERENCE RANG E: NEGATIVE HSV (test IgM is detectab le in serum code = from >90% of [facility] [address]196-5) primary HSV inf ection. However, HSV Ig [...] performancechar acteristics have been deter mined by [employer].It has not been cleared or appr luis by FDA. This assay hasb een validated pursuant to the CLIA regulations and isused for clinical purpos es. RAC (test Performing code = Organization RAC) Information: Site ID: EZ Name: [facility] Address: [address] [place] [address] Director: Crista Camacho MD,PhD,BARI [facility]V 1/2 antigen/antibody, fourth generation, with reflexes 2022-02-11 22:17:00 Test Item Value Reference Range Interpretation Comments HIV NON-REACTIVE NON-REACTIVE HIV-1 antigen a nd antigen/ant HIV-1/HIV-2 ant ibodies ibody 4th were notdetecte d. There gen (test is no laborator y evidence code = of HIVinfection . PLEASE 79033-0) NOTE: This info rmation has been disclo [...] ad ditional information ple ase refer tohttp://educat ion.LeukoDx/ faq/XNU166 (This link is b eing provided for informational/e ducational purposes only.) The performance of this assay has not been clinicallyvalid ated in patients less t lagunas 2 years old. RAC (test Performing code = RAC) Organization Information: Site ID: RGA Name: [facility] Address: [address] [place] [address] Director: Rajinder Grant [facility]V 1 and 2 specific Ab [id number] 22:17:00 Test Item Value Reference Interpretation Comments [...] additional information, pl ease refer to http://educatio nReza tDiagnostics.co m/faq/ KEX921 (This li nk is being provided for informational/e ducati onal purposes o nly.) RAC (test code = Performing RAC) Organization Information: Site ID: IG Name: [facility] Address: [address] [place] [address] Director: Dr. Rajinder Grant Lab Interpretation Abnormal (test code = 01556-7) [facility] B surface [id number] 22:17:00 Test Item Value Reference Range Interpretation Comments Hepatitis B surface NON-REACTIVE NON-REACTIVE Ag (test code = 5196-1) RAC (test code = RAC) Performing Organization Information: Site ID: RGA Name: [facility] Address: [address] [place] [address] Director: Rajinder Grant [facility]RP with reflex to [id number] 22:17:00 Test Item Value Reference Range Interpretation Comments RPR (test code = NON-REACTIVE NON-REACTIVE 47133-2) RAC (test code = Performing Organization RAC) Information: Site ID: RGA Name: [facility] Address: [address] [place] [address] Director: Rajinder Grant [facility] C virus (HCV), quantitative [id number] 22:17:00 Test Item Value Reference Interpretation Comments Range HCV RNA, <15 NOT DETECTED NOT DETECTED quantitative PCR IU/mL (test code = 11881-0) HCV viral log <1.18 NOT DETECTED NOT DETECTED This bhupendra t was (test code = Log IU/mL performed using 38995-3) Real-Time Polym erase ChainReaction. Reportable Rang e: 15 IU/mL to 100,00 0,000 IU/mL(1.18 Log IU/mL to 8.00 Log IU/ mL). The analytical performance characteristics of thisassay have been determined by [facility]. Th e modifications h ave not been cleare d or approved bythe FDA. This assay has been validated pursu ant to the CLIA regulations and is used for clinic al purposes. For m ore information on this test, go to:http://educa tion. GlucoSentient /faq/TKS19j8(Th is link is being provided for informational/e ducat ional purposes only.) RAC (test code = Performing [facility]) Organization Information: Site ID: IG Name: [facility] Address: [address] [place] [address] Director: Dr. Rajinder Grant [facility] C [id number] 22:17:00 Test Item Value Reference Interpretation Comments Range Hepatitis C Ab (test REACTIVE NON-REACTIVE A code = 86460-2) Signal/cutoff (test >11.00 See_Comment H Based o n this code = 04391-4) result, the sample will be testedf or [...] RAC) Organization Information: Site ID: RGA Name: [facility] Address: [address] [place] [address] Director: Rajinder Grant Lab Interpretation Abnormal (test code = 62795-5) [facility] type [facility]/2 combined Ab, [id number] 22:17:00 Test Item Value Reference Interpretation Comments Range HSV 1 IgM NEGATIVE (test code = 46043-1) HSV 2 IgM NEGATIVE REFERENCE RANG E: NEGATIVE HSV (test IgM is detectab le in serum code = from >90% of ca tracey 25438-6) primary HSV inf ection. However, HSV Ig [...] performancechar acteristics have been deter mined by [employer].It has not been cleared or appr luis by FDA. This assay hasb een validated pursuant to the CLIA regulations and isused for clinical purpos es. RAC (test Performing code = Organization RAC) Information: Site ID: EZ Name: [employer] Address: [address] [place] [address] Director: Crista Camacho MD,PhD,BARI [facility]stHIV 1/2 antigen/antibody, fourth generation, with reflexes 2022-02-11 22:17:00 Test Item Value Reference Range Interpretation Comments HIV NON-REACTIVE NON-REACTIVE HIV-1 antigen a nd antigen/ant HIV-1/HIV-2 ant ibodies ibody 4th were notdetecte d. There gen (test is no laborator y evidence code = of HIVinfection . PLEASE 69372-0) NOTE: This info rmation has been disclo sed toyou from records wh ose confidentiality may beprotected [...] ad ditional information ple ase refer tohttp://educat ion.AppAssure Software.Key Ring/ faq/BZA739 (This link is b eing provided for informational/e ducational purposes only.) The performance of this assay has not been clinicallyvalid ated in patients less t lagunas 2 years old. RAC (test Performing code = RAC) Organization Information: Site ID: RGA Name: [facility] Address: [address] [place] [address] Director: Rajinder Grant [facility]stHSV 1 and 2 specific Ab [id number] 22:17:00 Test Item Value Reference Interpretation Comments [...] ease refer to http://educatio n.Tri tDiagnostics.co m/faq/ NRB253 (This li nk is being provided for informational/e ducati onal purposes o nly.) RAC (test code = Performing RAC) Organization Information: Site ID: IG Name: [facility] Address: [address] [place] [address] Director: Dr. Rajinder Grant Lab Interpretation Abnormal (test code = 76049-1) [facility] B surface [id number] 22:17:00 Test Item Value Reference Range Interpretation Comments Hepatitis B surface NON-REACTIVE NON-REACTIVE Ag (test code = 5196-1) RAC (test code = RAC) Performing Organization Information: Site ID: RGA Name: [facility] Address: [address] [place] [address] Director: Rajinder Grant [facility]stRPR with reflex to [id number] 22:17:00 Test Item Value Reference Range Interpretation Comments RPR (test code = NON-REACTIVE NON-REACTIVE 11742-1) RAC (test code = Performing Organization RAC) Information: Site ID: RGA Name: [facility] Address: [address] [place] [address] Director: Rajinder Grant [facility] C virus (HCV), quantitative [id number] 22:17:00 Test Item Value Reference Interpretation Comments Range HCV RNA, <15 NOT DETECTED NOT DETECTED quantitative PCR IU/mL (test code = 53411-1) HCV viral log <1.18 NOT DETECTED NOT DETECTED This bhupendra t was (test code = Log IU/mL performed using 01495-3) Real-Time Polym erase ChainReaction. Reportable Rang e: 15 IU/mL to 100,00 0,000 IU/mL(1.18 Log IU/mL to 8.00 Log IU/ mL). The analytical performance characteristics of thisassay have been determined by [facility]. Th e modifications h ave not been cleare d or approved bythe FDA. This assay has been validated pursu ant to the CLIA regulations and is used for clinic al purposes. For m ore information on this test, go to:http://educa tion. GlucoSentient /faq/GWJ22j9(Th is link is being provided for informational/e ducat ional purposes only.) RAC (test code = Performing RAC) Organization Information: Site ID: IG Name: [facility] Address: [address] [place] [address] Director: Dr. Rajinder Grant [facility]stHepatitis C [id number] 22:17:00 Test Item Value Reference Interpretation Comments Range Hepatitis C Ab (test REACTIVE NON-REACTIVE A code = 16264-0) Signal/cutoff (test >11.00 See_Comment H Based o n this code = 04743-0) result, the sample will be testedf or [...] RAC) Organization Information: Site ID: RGA Name: [facility] Address: [address] [place] [address] Director: Rajinder Grant Lab Interpretation Abnormal (test code = 50455-4) [facility]stHS type 1/2 combined Ab, [id number] 22:17:00 Test Item Value Reference Interpretation Comments Range HSV 1 IgM NEGATIVE (test code = 39095-4) HSV 2 IgM NEGATIVE REFERENCE RANG E: NEGATIVE HSV (test IgM is detectab le in serum code = from >90% of [place] tracey 65367-1) primary HSV inf ection. However, HSV Ig [...] performancechar acteristics have been deter mined by [employer].It has not been cleared or appr luis by FDA. This assay hasb een validated pursuant to the CLIA regulations and isused for clinical purpos es. RAC (test Performing code = Organization RAC) Information: Site ID: EZ Name: [employer] Address: [address] [place] [address] Director: Crista Camacho MD,PhD,BARI [facility]2 antigen/antibody, fourth generation, with reflexes 2022-02-11 22:17:00 Test Item Value Reference Range Interpretation Comments HIV NON-REACTIVE NON-REACTIVE HIV-1 antigen a nd antigen/ant HIV-1/HIV-2 ant ibodies ibody 4th were notdetecte d. There gen (test is no laborator y evidence code = of HIVinfection . PLEASE 76847-5) NOTE: This info rmation has been disclo sed toyou from records wh ose confidentiality may beprotected [...] ad ditional information ple ase refer tohttp://educat ion.LeukoDx/ faq/RFA263 (This link is b eing provided for informational/e ducational purposes only.) The performance of this assay has not been clinicallyvalid ated in patients less t lagunas 2 years old. RAC (test Performing code = RAC) Organization Information: Site ID: RGRd Name: [facility] Address: [address] [place] [address] Director: Rajinder Grant [facility]stHSV 1 and 2 specific Ab [id number] 22:17:00 Test Item Value Reference Interpretation Comments [...] ease refer to http://educatio n.Tri tDiagnostics.co m/faq/ DEI599 (This li nk is being provided for informational/e ducati onal purposes o nly.) RAC (test code = Performing RAC) Organization Information: Site ID: IG Name: [facility] Address: [address] [place] [address] Director: Dr. Rajinder Grant Lab Interpretation Abnormal (test code = 47932-3) [facility]stHepatitis B surface [id number] 22:17:00 Test Item Value Reference Range Interpretation Comments Hepatitis B surface NON-REACTIVE NON-REACTIVE Ag (test code = 5196-1) RAC (test code = RAC) Performing Organization Information: Site ID: RGA Name: [facility] Address: [address] [place] [address] Director: Rajinder Parker [facility]RP with reflex to [id number] 22:17:00 Test Item Value Reference Range Interpretation Comments RPR (test code = NON-REACTIVE NON-REACTIVE 57018-4) RAC (test code = Performing Organization RAC) Information: Site ID: BEBA Name: [facility] Address: [address] [place] [address] Director: Rajinder Grant [facility] C virus (HCV), quantitative [id number] 22:17:00 Test Item Value Reference Interpretation Comments Range HCV RNA, <15 NOT DETECTED NOT DETECTED quantitative PCR IU/mL (test code = 37811-9) HCV viral log <1.18 NOT DETECTED NOT DETECTED This bhupendra t was (test code = Log IU/mL performed using 52659-4) Real-Time Polym erase ChainReaction. Reportable Rang e: 15 IU/mL to 100,00 0,000 IU/mL(1.18 Log IU/mL to 8.00 Log IU/ mL). The analytical performance characteristics of thisassay have been determined by [facility]. Th e modifications h ave not been cleare d or approved bythe FDA. This assay has been validated pursu ant to the CLIA regulations and is used for clinic al purposes. For m ore information on this test, go to:http://educa tion. GlucoSentient /faq/QDZ89e5(Th is link is being provided for informational/e ducat ional purposes only.) RAC (test code = Performing RAC) Organization Information: Site ID: IG Name: [facility] Address: [address] [place] [address] Director: Dr. Rajinder Grant [facility] C [id number] 22:17:00 Test Item Value Reference Interpretation Comments Range Hepatitis C Ab (test REACTIVE NON-REACTIVE A code = 45802-7) Signal/cutoff (test >11.00 See_Comment H Based o n this code = 98185-9) result, the sample will be testedf or [...] RAC) Organization Information: Site ID: RGA Name: [facility] Address: [address] [place] [address] Director: Rajinder Grant Lab Interpretation Abnormal (test code = 65388-4) [facility]HSV type 1/2 combined Ab, [id number] 22:17:00 Test Item Value Reference Interpretation Comments Range HSV 1 IgM NEGATIVE (test code = 91320-5) HSV 2 IgM NEGATIVE REFERENCE RANG E: NEGATIVE HSV (test IgM is detectab le in serum code = from >90% of [facility] [address]-6) primary HSV inf ection. However, HSV Ig [...] performancechar acteristics have been deter mined by [employer].It has not been cleared or appr luis by FDA. This assay hasb een validated pursuant to the CLIA regulations and isused for clinical purpos es. RAC (test Performing code = Organization RAC) Information: Site ID: EZ Name: [employer] Address: [address] [place] [address] Director: Crista Camahco MD,PhD,BARI [facility]stHIV 1/2 antigen/antibody, fourth generation, with reflexes 2022-02-11 22:17:00 Test Item Value Reference Range Interpretation Comments HIV NON-REACTIVE NON-REACTIVE HIV-1 antigen a nd antigen/ant HIV-1/HIV-2 ant ibodies ibody 4th were notdetecte d. There gen (test is no laborator y evidence code = of HIVinfection . PLEASE 44798-5) NOTE: This info rmation has been disclo [...] ad ditional information ple ase refer tohttp://educat ion.LeukoDx/ faq/PTL823 (This link is b eing provided for informational/e ducational purposes only.) The performance of this assay has not been clinicallyvalid ated in patients less t lagunas 2 years old. RAC (test Performing code = RAC) Organization Information: Site ID: RGA Name: [facility] Address: [address] [place] [address] Director: Rajinder Grant [facility]stHSV 1 and 2 specific Ab [id number] 22:17:00 Test Item Value Reference Interpretation Comments [...] ease refer to http://educatio n.Ques tDiagnostics.co m/faq/ DKQ789 (This li nk is being provided for informational/e ducati onal purposes o nly.) RAC (test code = Performing RAC) Organization Information: Site ID: IG Name: [facility] Address: [address] [place] [address] Director: Dr. Rajinder Grant Lab Interpretation Abnormal (test code = 90670-7) [facility] B surface [id number] 22:17:00 Test Item Value Reference Range Interpretation Comments Hepatitis B surface NON-REACTIVE NON-REACTIVE Ag (test code = 5196-1) RAC (test code = RAC) Performing Organization Information: Site ID: RGA Name: [facility] Address: [address] [place] [address] Director: Rajinder Grant [facility]stRP with reflex to [id number] 22:17:00 Test Item Value Reference Range Interpretation Comments RPR (test code = NON-REACTIVE NON-REACTIVE 01986-3) RAC (test code = Performing Organization RAC) Information: Site ID: RGA Name: [facility] Address: [address] [place] [address] Director: Rajinder Grant [facility] C virus (HCV), quantitative [id number] 22:17:00 Test Item Value Reference Interpretation Comments Range HCV RNA, <15 NOT DETECTED NOT DETECTED quantitative PCR IU/mL (test code = 19054-8) HCV viral log <1.18 NOT DETECTED NOT DETECTED This bhupendra t was (test code = Log IU/mL performed using 03806-3) Real-Time Polym erase ChainReaction. Reportable Rang e: 15 IU/mL to 100,00 0,000 IU/mL(1.18 Log IU/mL to 8.00 Log IU/ mL). The analytical performance characteristics of thisassay have been determined by [facility]. Th e modifications h ave not been cleare d or approved bythe FDA. This assay has been validated pursu ant to the CLIA regulations and is used for clinic al purposes. For m ore information on this test, go to:http://educa tion. GlucoSentient /faq/XFS40y9(Th is link is being provided for informational/e ducat ional purposes only.) RAC (test code = Performing RAC) Organization Information: Site ID: IG Name: [facility] Address: [address] [place] [address] Director: Dr. Rajinder Grant [facility]stHepatitis C [id number] 22:17:00 Test Item Value Reference Interpretation Comments Range Hepatitis C Ab (test REACTIVE NON-REACTIVE A code = 57724-5) Signal/cutoff (test >11.00 See_Comment H Based o n this code = 60621-5) result, the sample will be testedf or [...] RAC) Organization Information: Site ID: RGA Name: [facility] Address: [address] [place] [address] Director: Rajinder Grant Lab Interpretation Abnormal (test code = 70173-5) [facility]2 combined Ab, [id number] 22:17:00 Test Item Value Reference Interpretation Comments Range HSV 1 IgM NEGATIVE (test code = 08551-3) HSV 2 IgM NEGATIVE REFERENCE RANG E: NEGATIVE HSV (test IgM is detectab le in serum code = from >90% of [facility] 72775-2) primary HSV inf ection. However, HSV Ig [...] performancechar acteristics have been deter mined by [employer].It has not been cleared or appr luis by FDA. This assay hasb een validated pursuant to the CLIA regulations and isused for clinical purpos es. RAC (test Performing code = Organization RAC) Information: Site ID: EZ Name: [employer] Address: [address] [place] [address] Director: Crista Camacho MD,PhD,BARI [facility]stHIV 1/2 antigen/antibody, fourth generation, with reflexes 2022-02-11 22:17:00 Test Item Value Reference Range Interpretation Comments HIV NON-REACTIVE NON-REACTIVE HIV-1 antigen a nd antigen/ant HIV-1/HIV-2 ant ibodies ibody 4th were notdetecte d. There gen (test is no laborator y evidence code = of HIVinfection . PLEASE 72219-7) NOTE: This info rmation has been disclo sed toyou from records wh ose confidentiality may beprotected [...] ad ditional information ple ase refer tohttp://educat ion.AppAssure Software.Key Ring/ faq/YRW491 (This link is b eing provided for informational/e ducational purposes only.) The performance of this assay has not been clinicallyvalid ated in patients less t lagunas 2 years old. RAC (test Performing code = RAC) Organization Information: Site ID: RGA Name: [facility] Address: [address] [place] [address] Director: Rajinedr Al[facility]Rar[facility] BridgeHSV 1 and 2 specific Ab [id number] 22:17:00 Test Item Value Reference Interpretation Comments Range HSV 1 IgG (test <0.90 index code = 5206-8) HSV 2 IgG (test index H Index Inte rpretation code = 5209-2) ----- ------- ------- <0.90 Negative 0.90-1.09 Equiv ocal >1.09 Positive This assay utilizes recombinant type-specific antigensto differentiate H SV-1 from HSV-2 infe ctions. Apositive resul t cannot distingu meghan between recent andpast infection. If r ecent HSV infection i s suspectedbut th e results are neg ative or equivocal, t he assayshould be repeated in 4-6 weeks. The performancechar acteris tics of the ass ay have not been establishedfor pediatric popul ations, immunocompromis ed patients,or omar screening. For additional information, pl ease refer to http://educatio n.[employer].com /faq/FA Q118 (This link is being provided for informational/e ducatio nal purposes on ly.) RAC (test code = Performing RAC) Organization Information: Site ID: IG Name: [facility] Address: [address] [place] [address] Director: Dr. Rajinder Grant Lab Interpretation Abnormal (test code = 70232-3) [facility] [id number] 15:02:28 Test Item Value Reference Range Interpretation Comments Case number (test code = [id number]) Surgical pathology See link below for report (test code = PDF Lab Report 2255) Result status (test code This is Final Report = [id number]) for [id number] [facility] [id number] 15:02:28 Test Item Value Reference Range Interpretation Comments Case number (test code = [id number]) Surgical pathology See link below for report (test code = PDF Lab Report 2255) Result status (test code This is Final Report = [id number]) for [id number] [facility] [id number] 15:02:28 Test Item Value Reference Range Interpretation Comments Case number (test code = [id number]) Surgical pathology See link below for report (test code = PDF Lab Report 2255) Result status (test code This is Final Report = [id number]) for [id number] [facility] [id number] 15:02:28 Test Item Value Reference Range Interpretation Comments Case number (test code = [id number]) Surgical pathology See link below for report (test code = PDF Lab Report 2255) Result status (test code This is Final Report = [id number]) for [id number] [facility] [id number] 15:02:28 Test Item Value Reference Range Interpretation Comments Case number (test code = [id number]) Surgical pathology See link below for report (test code = PDF Lab Report 2255) Result status (test code This is Final Report = [id number]) for [id number] [facility] [id number] 22:09:28 Test Item Value Reference Interpretation Comments Range Interpretation (test Negative results do not code = 9028178) preclude COVID-19 infection and should not be used asthe sole basis for treatment or other patient management decisions. Negativeresults must be combined with clinical observations, patient history, andepidemiological information. COVID-19 qualitative Not-Detected Not-Detected RT-PCR result (test code = 82663-6) COVID-19 qualitative See link below for PDF Case Number: RT-PCR (test code = Lab Report [id number]) [facility] qualitative [id number] 22:09:28 Test Item Value Reference Interpretation Comments Range Interpretation (test Negative results do not code = 6117074) preclude COVID-19 infection and should not be used asthe sole basis for treatment or other patient management decisions. Negativeresults must be combined with clinical observations, patient history, andepidemiological information. COVID-19 qualitative Not-Detected Not-Detected RT-PCR result (test code = 73255-7) COVID-19 qualitative See link below for PDF Case Number: RT-PCR (test code = Lab Report [id number]) [facility] qualitative [id number] 22:09:28 Test Item Value Reference Interpretation Comments Range Interpretation (test Negative results do not code = 4275240) preclude COVID-19 infection and should not be used asthe sole basis for treatment or other patient management decisions. Negativeresults must be combined with clinical observations, patient history, andepidemiological information. COVID-19 qualitative Not-Detected Not-Detected RT-PCR result (test code = 03106-1) COVID-19 qualitative See link below for PDF Case Number: RT-PCR (test code = Lab Report [id number]) [facility] qualitative [id number] 22:09:28 Test Item Value Reference Interpretation Comments Range Interpretation (test Negative results do not code = 6164404) preclude COVID-19 infection and should not be used asthe sole basis for treatment or other patient management decisions. Negativeresults must be combined with clinical observations, patient history, andepidemiological information. COVID-19 qualitative Not-Detected Not-Detected RT-PCR result (test code = 16132-5) COVID-19 qualitative See link below for PDF Case Number: RT-PCR (test code = Lab Report [id number]) [facility] qualitative [id number] 22:09:28 Test Item Value Reference Interpretation Comments Range Interpretation (test Negative results do not code = 9061824) preclude COVID-19 infection and should not be used asthe sole basis for treatment or other patient management decisions. Negativeresults must be combined with clinical observations, patient history, andepidemiological information. COVID-19 qualitative Not-Detected Not-Detected RT-PCR result (test code = 08232-3) COVID-19 qualitative See link below for PDF Case Number: RT-PCR (test code = Lab Report [id number]) [facility]-2 (COVID-19) RNA [Presence] in Respiratory specimen by LATESHA with probe [id number] 17:09:28 Test Item Value Reference Range Interpretation Comments SARS-CoV-2 (COVID-19) RNA Not detected [Presence] in Respiratory specimen by LATESHA with probe detection (test code = 13796-7) Whether patient is employed in a Unknown healthcare setting (test code = 23764-7) Whether the patient has symptoms Unknown related to condition of interest (test code = 51668-8) Whether the patient was Unknown hospitalized for condition of interest (test code = 94463-0) Whether the patient was admitted Unknown to intensive care unit (ICU) for condition of interest (test code = 24915-6) Whether patient resides in a Unknown congregate care setting (test code = 46151-2) status (test code = Unknown 04526-7) Date and time of symptom onset Unknown (test code = 62988-4) [facility]ITAL[facility]INPREP TIS AND HPV mRNA [id number] 20:30:00 Test Item Value Reference Interpretation Comments Range Clinical information None gi niurka (test code = 79751-2) Date of last NONE GIVEN menstrual period (test code = 8665-2) Prev. pap: (test code NONE G IVEN = 58317-9) Prev. bx: (test code NONE GI NIURKA = 75227-7) Source (test code = None giv en 90932-6) Statement of adequacy Satisf actory for (test code = 84226-0) evalua tion.Endocervi cony/transformat ion zone componentpresen t.Age and/or menstrua l status not prov ided Interpretation/result Negati ve for : (test code = intraepitheli al 41773-3) lesion or malignancy. Comment (test code = This Pa p test has ) been evaluated with FOI Corporationassiste d technology. Provider Engagement Executive NATO, CT ( CP)CT (test code = 10972-1) screen ing location: [address], [facility] [address] Comment (test code = EXPLANA TORY NOTE: 8710622) The Pap is a screening test for [...] Detected Not Detected Methodo logy: code = 84840-8) Transcriptio n-Mediat ed Amplificatio n This assay [...] For additional information, pl ease refer tohttp://educat ion.[employer]/ faq/TJJ892y7(Th is link if provide d for information/edu catio nal purposes on ly.) RAC (test code = RAC) Performing Organization Information: Site ID: IG Name: [facility] Address: [address] [place] [address] Director: Dr. Rajinder Grant Site ID: RGA Name: [facility] Address: [address] [place] [address] Director: Rajinder Grant [facility]INPREP TIS AND HPV mRNA [id number] 20:30:00 Test Item Value Reference Interpretation Comments Range Clinical information None gi niurka (test code = 44504-3) Date of last NONE GIVEN menstrual period (test code = 8665-2) Prev. pap: (test code NONE G IVEN = 17811-1) Prev. bx: (test code NONE GI NIURKA = 68008-0) Source (test code = None giv en 65333-6) Statement of adequacy Satisf actory for (test code = 33125-8) evalua tion.Endocervi cony/transformat ion zone componentpresen t.Age and/or menstrua l status not prov ided Interpretation/result Negati ve for : (test code = intraepitheli al 74140-0) lesion or malignancy. Comment (test code = This Pa p test has ) been evaluated with computerassiste d technology. Provider Engagement Executive NATO, CT ( CP)CT (test code = 18839-1) screen ing location: [facility] [address] [facility], [place] [address] 2 Comment (test code = EXPLANA TORY NOTE: 3210456) The Pap is a screening test for [...] Detected Not Detected Methodo logy: code = 97542-8) Transcriptio n-Mediat ed Amplificatio n This assay [...] For additional information, pl ease refer tohttp://educat ion.Dig[employer]om[employer]ion/ faq/WYO999c7(Th is link if provide d for information/edu catio nal purposes on ly.) JACEK (test code = RAC) Performing Organization Information: Site ID: IG [facility]: [facility] Address: [address] [place] [address] Director: Dr. Rajinder Grant Site ID: RGA [facility] Address: [address] [place] [address] Director: Rajinder Grant [facility]THINPREP TIS AND HPV mRNA [id number] 20:30:00 Test Item Value Reference Interpretation Comments Range Clinical information None gi niurka (test code = 22686-8) Date of last NONE GIVEN menstrual period (test code = 8665-2) Prev. pap: (test code NONE G IVEN = 31643-6) Prev. bx: (test code NONE GI NIURKA = 26453-2) Source (test code = None giv en ) Statement of adequacy Satisf actory for (test code = 13605-3) evalua tion.Endocervi cony/transformat ion zone componentpresen t.Age and/or menstrua l status not prov ided Interpretation/result Negati ve for : (test code = intraepitheli al 42782-8) lesion or malignancy. Comment (test code = This Pa p test has ) been evaluated with computerassiste d technology. Provider Engagement Executive SYL DUTTON ( CP)CT (test code = 53970-9) screen ing location: [facility] [address] [place] [address], [place] [address] 2 Comment (test code = VIRGILIO CASTELLANO NOTE: 4734510) The Pap is a screening test for [...] Detected Not Detected Methodo logy: code = 07506-2) Transcriptio n-Mediat ed Amplificatio n This assay [...] For additional information, pl ease refer tohttp://educat ion.[employer] .[employer]/ faq/WLB690k3(Th is link if provide d for information/edu catio nal purposes on ly.) RAC (test code = RAC) Performing Organization Information: Site ID: IG Name: [facility] Address: [address] [place] [address] Director: Dr. Rajinder Grant Site ID: RGA Name: [facility] Address: [address] [place] [address] Director: Rajinder Grant [facility]INPREP TIS AND HPV mRNA [id number] 20:30:00 Test Item Value Reference Interpretation Comments Range Clinical information None gi niurka (test code = 90873-8) Date of last NONE GIVEN menstrual period (test code = 8665-2) Prev. pap: (test code NONE G IVEN = 24544-9) Prev. bx: (test code NONE GI NIURKA = 66192-9) Source (test code = [place] [address]38[address]-7) Statement of adequacy Satisf actory for (test code = 49151-3) evalua tion.Endocervi cony/transformat ion zone componentpresen t.Age and/or menstrua l status not prov ided Interpretation/result Negati ve for : (test code = intraepitheli al 96273-7) lesion or malignancy. Comment (test code = This Pa p test has ) been evaluated with Backplaneiste d technology. Provider Engagement Executive NATO, CT ( CP)CT (test code = 78147-1) screen ing location: [place] [address] [address], [facility] [address] Comment (test code = EXPLANA TORY NOTE: 7625777) The Pap is a screening test for [...] Detected Not Detected Methodo logy: code = 91614-6) Transcriptio n-Mediat ed Amplificatio n This assay [...] For additional information, pl ease refer tohttp://educat ion.Digicompanion/ faq/RVS621n4(Th is link if provide d for information/edu catio nal purposes on ly.) JACEK (test code = RAC) Performing Organization Information: Site ID: IG Name: [facility] Address: [address] [place] [address] Director: Dr. Rajinder Grant Site ID: RGA Name: [facility] Address: [address] [place] [address] Director: Rajinder Parker [facility] CenterTHINPREP TIS AND HPV mRNA [id number] 20:30:00 Test Item Value Reference Interpretation Comments Range Clinical information None gi niurka (test code = 93636-3) Date of last NONE GIVEN menstrual period (test code = 8665-2) Prev. pap: (test code NONE G IVEN = 68861-6) Prev. bx: (test code NONE GI NIURKA = 85202-3) Source (test code = None giv en 97931-7) Statement of adequacy Satisf actory for (test code = 76582-8) evalua tion.Endocervi cony/transformat ion zone componentpresen t.Age and/or menstrua l status not prov ided Interpretation/result Negati ve for : (test code = intraepitheli al 09862-7) lesion or malignancy. Comment (test code = This Pa p test has ) been evaluated with Back[employer]iste d technology. Provider Engagement Executive SYL DUTTON ( CP)CT (test code = 98997-7) screen ing location: [address], [place] [address] 2 Comment (test code = EXPLANA TORY NOTE: 4858153) The Pap is a screening test for [...] Detected Not Detected Methodo logy: code = 25893-7) Transcriptio n-Mediat ed Amplificatio n This assay [...] additional information, pl ease refer tohttp://educat ion.q [employer] .[employer] Ring/ faq/KPK478a2(Th is link if provide d for information/edu catio nal purposes on ly.) RAC (test code = RAC) Performing Organization Information: Site ID: IG Name: [facility] Address: [address] [place] [address] Director: Dr. Rajinder Grant Site ID: RGA Name: [facility] Address: [address] [place] [address] Director: Rajinder Grant [address]2022-09-01 18:14:37 Test Item Value Reference Range Interpretation Comments Ventricular rate (test code = 253) Atrial rate (test code = 255) WA interval (test code = 266) QRSD interval [...] of 07-NOV-2021 12:57,-No significant change was found- [address]2022-09-01 18:14:37 Test Item Value Reference Range Interpretation Comments Ventricular rate (test code = 253) Atrial rate (test code = 255) WA interval (test code = 266) QRSD interval [...] of 07-NOV-2021 12:57,-No significant change was found- [facility] 12 [id number] 18:14:37 Test Item Value Reference Range Interpretation Comments Ventricular rate (test code = 253) Atrial rate (test code = 255) WA interval (test code = 266) QRSD interval [...] of 07-NOV-2021 12:57,-No significant change was found- [facility] ([facility]OVID-19) RNA [Presence] in Respiratory specimen by LATESHA with probe [id number] 21:57:49 Test Item Value Reference Range Interpretation Comments SARS-CoV-2 (COVID-19) RNA [Presence] Detected in Respiratory specimen by LATESHA with probe detection (test code = 20941-4) Whether patient is employed in a Unknown healthcare setting (test code = 74432-8) Whether the patient has symptoms Unknown related to condition of interest (test code = 53080-4) Whether the patient was hospitalized Unknown for condition of interest (test code = 39934-1) Whether the patient was admitted to Unknown intensive care unit (ICU) for condition of interest (test code = 41199-6) Whether patient resides in a Unknown congregate care setting (test code = 45720-1) status (test code = Unknown 50717-5) Date and time of symptom onset (test Unknown code = 76719-6) [facility] function [id number] 18:40:00 Test Item Value Reference Range Interpretation Comments Protein (test code 6.6 g/dL 6.1-8.1 = 2885-2) Albumin, S (test 4.1 g/dL 3.6-5.1 code = 1751-7) Globulin, total See_Comment [Automated (test code = message] The 69299-0) system which generated this result transmitted reference [...] ALT (test code = 14 U/L 6-29 2-6) WILDA (test code = FASTING: UNKNOWN WILDA) RAC (test code = Performing RAC) Organization Information: Site ID: RGA [facility]: [facility] Address: [address] [place] [address] Director: [place] Girma MedinaNorth BeachVeterans Health AdministrationHepatic function [id number] 18:40:00 Test Item Value Reference Range Interpretation [...] AST (test code = 13 U/L 10-35 1919-8) ALT (test code = 14 U/L -1741-6) WILDA (test code = FASTING: UNKNOWN WILDA) RAC (test code = Performing RAC) Organization Information: Site ID: RGA [facility] Address: [address] [place] [address] Director: [facility] [id number] 18:40:00 Test Item Value Reference Range Interpretation [...] 1920-8) ALT (test code = 14 U/L 6-29 1742-6) WILDA (test code = FASTING: UNKNOWN WILDA) RAC (test code = Performing RAC) Organization Information: Site ID: RGA [facility] Address: [address] [place] [address] Director: Rajinder Girma MedinaRudyVeterans Health AdministrationHepatic function [id number] 18:40:00 Test Item Value Reference Range Interpretation [...] RAC) Organization Information: Site ID: RGA [facility] Address: [address] [place] [address] Director: Rajinder [facility]Mem[facility] HospitalHepatic function [id number] 18:40:00 Test Item Value Reference Range Interpretation [...] 1919-11) ALT (test code = 14 U/L 10-086) WILDA (test code = FASTING: UNKNOWN WILDA) RAC (test code = Performing RAC) Organization Information: Site ID: RGA [facility] Address: [address] [place] [address] Director: Rajinder Grant [facility] YotddocjDOPM-GdD-0 (COVID-19) RNA [Presence] in Respiratory specimen by LATESHA with probe [id number] 20:46:09 Test Item Value Reference Range Interpretation Comments SARS-CoV-2 (COVID-19) RNA Not detected [Presence] in Respiratory specimen by LATESHA with probe detection (test code = 69769-3) Whether patient is employed in a Unknown healthcare setting (test code = 14166-1) Whether the patient has symptoms Unknown related to condition of interest (test code = 03236-2) Whether the patient was Unknown hospitalized for condition of interest (test code = 37856-2) Whether the patient was admitted Unknown to intensive care unit (ICU) for condition of interest (test code = 79357-1) Whether patient resides in a Unknown congregate care setting (test code = 69109-0) status (test code = Unknown 55365-2) Date and time of symptom onset Unknown (test code = 62311-0) [facility] stimulating [id number] 05:23:00 Test Item Value Reference Range Interpretation Comments TSH (test code mIU/L Reference Ra nge > = 3016-3) or = 20 Years 0.40-4.50 Range s First trimester 0.26-2.66 Secon d trimester 0.55-2.73 Third trimester 0.43-2.91 RAC (test code Performing = RAC) Organization Information: Site ID: RGA [facility] Address: [address] [place] [address] Director: Rajinder Grant [facility]stThyroid stimulating [id number] 05:23:00 Test Item Value Reference Range Interpretation Comments TSH (test code mIU/L Reference Ra nge > = 3016-3) or = 20 Years 0.40-4.50 Range s First trimester 0.26-2.66 Secon d trimester 0.55-2.73 Third trimester 0.43-2.91 RAC (test code Performing = RAC) Organization Information: Site ID: RGA [facility] Address: [address] [place], [place] [address] Director: Rajinder [facility]iddTexas [facility] [id number] 05:23:00 Test Item Value Reference Range Interpretation Comments TSH (test code mIU/L Reference Ra nge > = 3016-3) or = 20 Years 0.40-4.50 Range s First trimester 0.26-2.66 Secon d trimester 0.55-2.73 Third trimester 0.43-2.91 RAC (test code Performing = RAC) Organization Information: Site ID: RGA Name: [facility] Address: [address] [place] [address] Director: Rajinder KiddTexas Health Pres[facility] [id number] 05:23:00 Test Item Value Reference Range Interpretation Comments TSH (test code mIU/L Reference Ra nge > = 3016-3) or = 20 Years 0.40-4.50 Range s First trimester 0.26-2.66 Secon d trimester 0.55-2.73 Third trimester 0.43-2.91 RAC (test code Performing = RAC) Organization Information: Site ID: RGA Name: [facility] Address: [address] [place] [address] Director: Rajinder KiddTexas [facility] Pres[facility] [id number] 05:23:00 Test Item Value Reference Range Interpretation Comments TSH (test code mIU/L Reference Ra nge > = 3016-3) or = 20 Years 0.40-4.50 Range s First trimester 0.26-2.66 Secon d trimester 0.55-2.73 Third trimester 0.43-2.91 RAC (test code Performing = RAC) Organization Information: Site ID: RGA Name: [facility] Address: [address] [place], [place] [id number] Director: Rajinder Grant [facility]stUA RFLX MICR CULT IF [id number] 18:48:00 Test Item Value Reference Range Interpretation [...] LACT) 0.7 mmol/L 0.7-2.0 N LIVER FUNCTION [id number] 15:14:00 Test Item Value Reference Range Interpretation [...] U/L 38-126 N (test code = ALKP) [id number] 15:14:00 Test Item Value Reference Range Interpretation [...] ~~~~~~~~~~~~ ~~~~~~~~~~~~~~~ ~~~~~~~~~~~~ ~~~~~~~~~~~~~~~ ~ BASIC METABOLIC [id number] 15:14:00 Test Item Value Reference Range Interpretation [...] = HEMINDEX) - CT ABD PELVIS W/O [id number] 14:53:00 [facility] 1970 Sex: F FAX: Debo Gutierrez [place]: St: REG Name: HERSON JACKSON [facility] : 1970 Age/S: 51/F [address] Unit: [id number] Loc: [place] [address] Phys: Debo Gutierrez [facility] Acct: [id number] Dis Date: Status: REG ER PHONE #: [phone] Exam Date: 08/08/2021 1435 FAX #: [phone] Reason: flank pain EXAMS: CPT CODE: [id number] CT ABD PELVIS W/O CONT 94578 EXAM: CT abdomen and pelvis without contrastHISTORY: 51 years -old Female with flank pain [...] either adrenal gland. Genitourinary: Right kidney : Thekidneys are normal. No hydronephrosis. no nephrolithiasis Left kidney: The kidneys are normal. No hydronephrosis there is a punctated calcification at the mid to lower aspect compatible with PAGE 1 Sign ed Report (CONTINUED) FAX: Dbeo Gutierrez [place]: [facility]: REG Name: HERSON JACKSON : 1970 Age/S: 51/F [address] Unit: [id number] Loc: [place] [address] Phys: Debo Gutierrez Acct: [id number] Dis Date: Status: REG ER PHONE #: [phone] Exam Date: 08/08/2021 1435 FAX #: Reason: flank pain EXAMS: CPT CODE: [id number] CT ABD PELVIS W/O CONT 96584 (Continued) nephrolithiasis . Evaluation of the bladder is limited, but no obvious bladder abnormality is present. Organs of Reproduction: Not well assessed due to the lack of IV contrast, though no gross abnormalities are identified. Although, there is evidence of mild fatty stranding surrounding the adnexa and uterussuggest presence of pelvic inflammatory disease. Gastrointestinal: No evidence of bowel obstruction or perienteric inflammation. The appendix is normal. Vascular: The vessels are not well assessed due to the lack of IV contrast, though no gross abnormality is identified. Lymph nodes: No enlarged lymphnodes by CT size criteria. Bones/Soft Tissues: No [...] 2 Signed Report (CONTINUED) FAX: Debo Gutierrez [place]: St: REG Name: HERSON JACKSON : 1970 Age/S: 51/F [address] Unit: [id number] Loc: [place] [address] Phys: Debo Gutierrez Acct: [id number] Dis Date: Status: REG ER PHONE #: [phone] Exam Date: 08/08/2021 1435 FAX #: [phone] Reason: flank pain EXAMS: CPT CODE: [id number] CT ABD PELVIS W/O CONT 25471 (Continued) CC: Debo Gutierrez Technologist: Debo Ortiz; SCOTT BENAVIDES TrnscrdDt/Tm: 08/08/2021 (1453) tPANKAJD Orig Print D/T: S: 08/08/2021 (6036 PAGE 3 Signed ReportCBC W/AUTO [id number] 14:21:00 Test Item Value Reference Range Interpretation [...] 3/uL 0.0-0.1 N - XR CHEST 1 [id number] 13:50:00 [facility]: HERSON JACKSON : 1970 Sex: F FAX: Debo Gutierrez [place]: St: PRE Name: HERSON JACKSON [place] : 1970 Age/S: 51/F [address] Unit #: [id number] Loc: [place] [address] Phys: Debo Gutierrez Acct: [id number] Dis Date:Status: PRE ER PHONE #: [phone] Exam Date: 08/08/2021 1340 FAX #: [phone] Reason: CODE SEPSIS EXAMS: CPT CODE: [id number] XR CHEST 1 V 47282 CHEST 1 VIEW: INDICATION: CODE SEPSIS COMPARISON: [...] Gutierrez Technologist: NAY GILLIS; STUDENT 2ND YEAR Trnsdrd Date/Time/By: 08/08/2021 (1350) : By: [email or web address] PAGE 1 Signed Report FAX: Debo Gutierrez [place]: St: PRE -- Name: HERSON JACKSON [place] : 1970 Age/S: 51/F [address] Unit #: [id number] Loc: [place] [address] Phys: Debo Gutierrez JULNNP Acct: [id number] Dis Date: Status: PRE ER PHONE #: [phone] Exam Date: 08/08/2021 1340 FAX #: [phone] Reason: CODE SEPSIS EXAMS: CPT CODE: [id number] XR CHEST 1 V 70815 (Continued) Orig Print D/T: S: 08/08/2021 (5134) PAGE 2 Signed ReportTHINPREP TIS PAP AND HPV mRNA E6/E7 REFLEX HPV 16,18/45 2021-06-19 18:43:00 Test Item Value Reference Interpretation Comments Range Clinical information None gi niurka (test code = 21215-5) Date of last NONE GIVEN menstrual period (test code = 8665-2) Prev. pap: (test code NONE G IVEN = 22249-6) Prev. bx: (test code NONE GI NIURKA = 84831-1) Source (test code = None giv en ) Statement of adequacy Satisf actory for (test code = 61584-1) evalua tion.Endocervi cony/transformat ion zone componentpresen t.Age and/or menstrua l status not prov ided Interpretation/result Negati ve for : (test code = intraepitheli al 50611-6) lesion or malignancy. Comment (test code = This Pa p test has ) been evaluated with computerassiste d technology. Review PMT, CT(ASCP)CT body shop technician screening l ocation: (test code = 24391-4) [facility] [address], [facility] [address] Comment (test code = EXPLANA TORY NOTE: 5370601) The Pap is a screening test for [...] Detected Not Detected Methodo logy: code = 91731-0) Transcriptio n-Mediat ed Amplificatio n This assay dete cts E6/E7 viral messenger RNA ( mRNA) from 14high-ris k HPV types (16,18,31,33,35 ,39,4 5,51,52,56,58,5 9,66, 68). The analyt ical performance characteristics of thisassay have been determined by [employer].The modifications h ave not been cleare d or approvedby the FDA. This assay has been validated pursu antto the CLIA regula tions and is used forclinical purposes. For additional information, pl ease refer tohttp://educat ion.[employer] .Key Ring/ faq/[id number](Th is link if provide d for information/edu catio nal purposes on ly.) JACEK (test code = RAC) Performing Organization Information: Site ID: IG Name: [facility] Address: [address] [place] [phone] Director: Dr. Rajinder Grant Site ID: RGA Name: [facility] Address: [address] [place] [address] Director: Rajinder Grant [facility] P[facility] AND HPV mRNA E6/E7 REFLEX HPV 16,18/45 2021-06-19 18:43:00 Test Item Value Reference Interpretation Comments Range Clinical information None gi niurka (test code = 32114-0) Date of last NONE GIVEN menstrual period (test code = 8665-2) Prev. pap: (test code NONE G IVEN = 70840-4) Prev. bx: (test code NONE GI NIURKA = 49681-2) Source (test code = None giv en ) Statement of adequacy Satisf actory for (test code = 69243-7) evalua tion.Endocervi cony/transformat ion zone componentpresen t.Age and/or menstrua l status not prov ided Interpretation/result Negati ve for : (test code = intraepitheli al 43249-0) lesion or malignancy. Comment (test code = This Pa p test has ) been evaluated with computerassiste d technology. Review PMT, CT(ASCP)CT body shop technician screening l ocation: (test code = 82887-7) [facility] [place] [address] Comment (test code = VIGRILIO CASTELLANO NOTE: 0068884) The Pap is a screening test for [...] Detected Not Detected Methodo logy: code = 44449-1) Transcriptio n-Mediat ed Amplificatio n This assay dete cts E6/E7 viral messenger RNA ( mRNA) from 14high-ris k HPV types (16,18,31,33,35 ,39,4 5,51,52,56,58,5 9,66, 68). The analyt ical performance characteristics of thisassay have been determined by [employer] [facility].The modifications h ave not been cleare d or approvedby the FDA. This assay has been validated pursu antto the CLIA regula tions and is used forclinical purposes. For additional information, pl ease refer tohttp://educat ion.[employer] .com/ faq/BWM105n3(Th is link if provide d for information/edu catio nal purposes on ly.) JACEK (test code = RAC) Performing Organization Information: Site ID: IG Name: [facility] Address: [address] [place] [address] Director: Dr. Rajinder Grant Site ID: RGA Name: [facility] Address: [address] [place] [address] Director: Rajinder Grant [facility]IN[facility] TIS PAP AND HPV mRNA E6/E7 REFLEX HPV 16,18/45 2021-06-19 18:43:00 Test Item Value Reference Interpretation Comments Range Clinical information None gi niurka (test code = 49638-5) Date of last NONE GIVEN menstrual period (test code = 8665-2) Prev. pap: (test code NONE G IVEN = 80925-2) Prev. bx: (test code NONE GI NIURKA = 41692-7) Source (test code = None giv en 59232-6) Statement of adequacy Satisf actory for (test code = 68825-6) evalua tion.Endocervi cony/transformat ion zone componentpresen t.Age and/or menstrua l status not prov ided Interpretation/result Negati ve for : (test code = intraepitheli al 59331-6) lesion or malignancy. Comment (test code = This Pa p test has ) been evaluated with computerassiste d technology. Review PMT, CT(ASCP)CT body shop technician screening l ocation: (test code = 92977-6) [facility] [place] [address], [facility] [address] Comment (test code = EXPLANA TORY NOTE: 2029231) The Pap is a screening test for [...] Detected Not Detected Methodo logy: code = 10326-0) Transcriptio n-Mediat ed Amplificatio n This assay dete cts E6/E7 viral messenger RNA ( mRNA) from 14high-ris k HPV types (16,18,31,33,35 ,39,4 5,51,52,56,58,5 9,66, 68). The analyt ical performance characteristics of thisassay have been determined by [employer] [facility].The modifications h ave not been cleare d or approvedby the FDA. This assay has been validated pursu antto the CLIA regula tions and is used forclinical purposes. For additional information, pl ease refer tohttp://educat ion.[employer] .com/ faq/FRN757v3(Th is link if provide d for information/edu catio nal purposes on ly.) JACEK (test code = RAC) Performing Organization Information: Site ID: IG Name: [facility] Address: [address] [place] [address], [place] [address] Director: Dr. Rajinder Grant Site ID: RGA Name: [facility] Address: [address] [place] [address] Director: Rajinder Grant [facility]IN[facility] TIS PAP AND HPV mRNA E6/E7 REFLEX HPV 16,18/45 2021-06-19 18:43:00 Test Item Value Reference Interpretation Comments Range Clinical information None gi niurka (test code = 75096-3) Date of last NONE GIVEN menstrual period (test code = 8665-2) Prev. pap: (test code NONE G IVEN = 80305-2) Prev. bx: (test code NONE GI NIURKA = 88612-3) Source (test code = None giv en ) Statement of adequacy Satisf actory for (test code = 10391-3) evalua tion.Endocervi cony/transformat ion zone componentpresen t.Age and/or menstrua l status not prov ided Interpretation/result Negati ve for : (test code = intraepitheli al 92011-5) lesion or malignancy. Comment (test code = This Pa p test has ) been evaluated with FOI Corporationassiste d technology. Review PMT, CT(ASCP)CT body shop technician screening l ocation: (test code = 24378-0) [facility] [address], [facility] [address] Comment (test code = EXPLANA TORY NOTE: 9105635) The Pap is a screening test for [...] Detected Not Detected Methodo logy: code = 39932-1) Transcriptio n-Mediat ed Amplificatio n This assay dete cts E6/E7 viral messenger RNA ( mRNA) from 14high-ris k HPV types (16,18,31,33,35 ,39,4 5,51,52,56,58,5 9,66, 68). The analyt ical performance characteristics of thisassay have been determined by [employer] [facility].The modifications h ave not been cleare d or approvedby the FDA. This assay has been validated pursu antto the CLIA regula tions and is used forclinical purposes. For additional information, pl ease refer tohttp://educat ion.[employer] .Key Ring/ faq/JIV727s5(Th is link if provide d for information/edu catio nal purposes on ly.) RAC (test code = RAC) Performing Organization Information: Site ID: IG Name: [facility] Address: [address] [place] [address] Director: Dr. Rajinder Grant Site ID: RGA Name: [facility] Address: [address] [place] [address] Director: Rajinder Grant [facility] TIS PAP AND HPV mRNA E6/E7 REFLEX HPV 16,18/45 2021-06-19 18:43:00 Test Item Value Reference Interpretation Comments Range Clinical information None gi niurka (test code = 36506-9) Date of last NONE GIVEN menstrual period (test code = 8665-2) Prev. pap: (test code NONE G IVEN = 23907-3) Prev. bx: (test code NONE GI NIURKA = 51165-8) Source (test code = None giv en 53460-9) Statement of adequacy Satisf actory for (test code = 41119-6) evalua tion.Endocervi cony/transformat ion zone componentpresen t.Age and/or menstrua l status not prov ided Interpretation/result Negati ve for : (test code = intraepitheli al 55498-6) lesion or malignancy. Comment (test code = This Pa p test has ) been evaluated with computerassiste d technology. Review PMT, CT(ASCP)CT body shop technician screening l ocation: (test code = 92378-7) [facility] [address], [place] [address] 2 Comment (test code = EXPLANA TORY NOTE: 8041208) The Pap is a screening test for [...] Detected Not Detected Methodo logy: code = 83538-8) Transcriptio n-Mediat ed Amplificatio n This assay dete cts E6/E7 viral messenger RNA ( mRNA) from 14high-ris k HPV types (16,18,31,33,35 ,39,4 5,51,52,56,58,5 9,66, 68). The analyt ical performance characteristics of thisassay have been determined by [facility].The modifications h ave not been cleare d or approvedby the FDA. This assay has been validated pursu antto the CLIA regula tions and is used forclinical purposes. For additional information, pl ease refer tohttp://educat ion.[employer] .Key Ring/ faq/[id number]( is link if provide d for information/edu catio nal purposes on ly.) RAC (test code = RAC) Performing Organization Information: Site ID: IG Name: [facility] Address: [address] [place] [address] Director: Dr. Rajinder Grant Site ID: RGA Name: [facility] Address: [address] [place] [address] Director: Rajinder Grant [facility] TO [id number] 09:37:00 Test Item Value Reference Interpretation Comments Range Color, UA (test code YELLOW YELLOW = 5778-6) Appearance (test CLEAR CLEAR code = 5767-9) Specific gravity, 1.001-1.035 urine (test code = 5811-5) pH, urine (test code 5.0-8.0 = 5803-2) Glucose, urine (test NEGATIVE NEGATIVE code = 78130-2) Bilirubin, UA (test NEGATIVE NEGATIVE code = 5770-3) Ketones, UA (test NEGATIVE NEGATIVE code = 2514-8) Occult blood, urine NEGATIVE NEGATIVE (test code = 5794-3) Protein, UA (test NEGATIVE NEGATIVE code = 49713-6) Nitrite, UA (test NEGATIVE NEGATIVE code = [...] code = NONE SEEN See_Comment [Autom ated 71792-5) message] The sy stem which generated this result transmitted reference range : < OR = 2 /HPF. Th e reference range was not used to interpret this result as normal/abnormal . Squamous epithelial NONE SEEN See_Comment [Automa aydin cells, UA (test code message ] The system = 08732-0) which generated this result transmitted reference range [...] URINE, code = 630-4) ROUTINE Micro Number: [id number] Test Status: Fi nal Specimen Source [...] RAC) Organization Information: Site ID: RGA Name: [facility] Address: [address] [place] [address] Director: Rajinder Grant Lab Interpretation Abnormal (test code = 51992-2) [facility] WITH REFLEX TO [id number] 09:37:00 Test Item Value Reference Interpretation Comments Range Color, UA (test code YELLOW YELLOW = 5778-6) Appearance (test CLEAR CLEAR code = 5767-9) Specific gravity, 1.001-1.035 urine (test code = 5811-5) pH, urine (test code 5.0-8.0 = 5803-2) Glucose, urine (test NEGATIVE NEGATIVE code = 32733-5) Bilirubin, UA (test NEGATIVE NEGATIVE code = 5770-3) Ketones, UA (test NEGATIVE NEGATIVE code = 2514-8) Occult blood, urine NEGATIVE NEGATIVE (test code = 5794-3) Protein, UA (test NEGATIVE NEGATIVE code = 54089-5) Nitrite, UA (test NEGATIVE NEGATIVE code = [...] code = NONE SEEN See_Comment [Autom ated 98796-6) message] The sy stem which generated this result transmitted reference range : < OR = 2 /HPF. Th e reference range was not used to interpret this result as normal/abnormal . Squamous epithelial NONE SEEN See_Comment [Automa aydin cells, UA (test code message ] The system = 19459-3) which generated this result transmitted reference range [...] URINE, code = 630-4) ROUTINE Micro Number: [id number] Test Status: Fi nal Specimen Source [...] RAC) Organization Information: Site ID: BEBA Name: [facility] Address: [address] [place] [address] Director: Rajinder Grant Lab Interpretation Abnormal (test code = 53451-3) [facility] WITH REFLEX TO [id number] 09:37:00 Test Item Value Reference Interpretation Comments Range Color, UA (test code YELLOW YELLOW = 5778-6) Appearance (test CLEAR CLEAR code = 5767-9) Specific gravity, 1.001-1.035 urine (test code = 5811-5) pH, urine (test code 5.0-8.0 = 5803-2) Glucose, urine (test NEGATIVE NEGATIVE code = 58602-1) Bilirubin, UA (test NEGATIVE NEGATIVE code = 5770-3) Ketones, UA (test NEGATIVE NEGATIVE code = 2514-8) Occult blood, urine NEGATIVE NEGATIVE (test code = 5794-3) Protein, UA (test NEGATIVE NEGATIVE code = 38935-2) Nitrite, UA (test NEGATIVE NEGATIVE code = [...] code = NONE SEEN See_Comment [Autom ated 86875-7) message] The sy stem which generated this result transmitted reference range : < OR = 2 /HPF. Th e reference range was not used to interpret this result as normal/abnormal . Squamous epithelial NONE SEEN See_Comment [Automa aydin cells, UA (test code message ] The system = 67240-9) which generated this result transmitted reference range [...] URINE, code = 630-4) ROUTINE Micro Number: [id number] Test Status: Fi nal Specimen Source [...] recommended for treatment of urinary tract infections, bu t clindamycin may be useful for treatment in penicillin dusty rgic patients for rectovaginal colonization or for intrapartum prophylaxis if indicated. RAC (test code = Performing RAC) Organization Information: Site ID: BEBA Name: [facility] Address: [address] [place] [address] Director: Rajinder Grant Lab Interpretation Abnormal (test code = 41589-7) [facility], WITH REFLEX TO [id number] 09:37:00 Test Item Value Reference Interpretation Comments Range Color, UA (test code YELLOW YELLOW = 5778-6) Appearance (test CLEAR CLEAR code = 5767-9) Specific gravity, 1.001-1.035 urine (test code = 5811-5) pH, urine (test code 5.0-8.0 = 5803-2) Glucose, urine (test NEGATIVE NEGATIVE code = 62447-1) Bilirubin, UA (test NEGATIVE NEGATIVE code = 5770-3) Ketones, UA (test NEGATIVE NEGATIVE code = 2784-8) Occult blood, urine NEGATIVE NEGATIVE (test code = 5794-3) Protein, UA (test NEGATIVE NEGATIVE code = 35258-2) Nitrite, UA (test NEGATIVE NEGATIVE code = [...] code = NONE SEEN See_Comment [Autom ated 89582-5) message] The sy stem which generated this result transmitted reference range : < OR = 2 /HPF. Th e reference range was not used to interpret this result as normal/abnormal . Squamous epithelial NONE SEEN See_Comment [Automa aydin cells, UA (test code message ] The system = 46839-2) which generated this result transmitted reference range [...] URINE, code = 630-4) ROUTINE Micro Number: [id number] Test Status: Fi nal Specimen Source [...] RAC) Organization Information: Site ID: RGA Name: [facility] Address: [address] [place] [address] Director: Rajinder L [place] [facility] Interpretation Abnormal (test code = 06256-5) [facility], WITH REFLEX TO [id number] 09:37:00 Test Item Value Reference Interpretation Comments Range Color, UA (test code YELLOW YELLOW = 5778-6) Appearance (test CLEAR CLEAR code = 5767-9) Specific gravity, 1.001-1.035 urine (test code = 5811-5) pH, urine (test code 5.0-8.0 = 5803-2) Glucose, urine (test NEGATIVE NEGATIVE code = 53717-9) Bilirubin, UA (test NEGATIVE NEGATIVE code = 5770-3) Ketones, UA (test NEGATIVE NEGATIVE code = 2514-8) Occult blood, urine NEGATIVE NEGATIVE (test code = 5794-3) Protein, UA (test NEGATIVE NEGATIVE code = 07430-5) Nitrite, UA (test NEGATIVE NEGATIVE code = [...] code = NONE SEEN See_Comment [Autom ated 39817-0) message] The sy stem which generated this result transmitted reference range : < OR = 2 /HPF. Th e reference range was not used to interpret this result as normal/abnormal . Squamous epithelial NONE SEEN See_Comment [Automa aydin cells, UA (test code message ] The system = 66018-3) which generated this result transmitted reference range [...] URINE, code = 630-4) ROUTINE Micro Number: [id number] Test Status: Fi nal Specimen Source [...] RAC) Organization Information: Site ID: RGA [facility] Address: [address] [place] [address] Director: Rajinder Grant Lab Interpretation Abnormal (test code = 14212-2) [facility] urinalysis [id number] 18:20:00 Test Item Value Reference Range Interpretation Comments Color urine, POC (test Straw code = 3562369) Clarity urine, POC (test Clear code = 1768160) Glucose urine, POC (test Negative Negative code = 9139349) Bilirubin urine, POC Negative Negative (test code = 4637609) Ketones urine, POC (test Negative Negative code = 2850474) Specific gravity urine, 1.005-1.030 POC (test code = 9363506) Blood urine, POC (test Trace Negative A code = 9859903) pH urine, POC (test code See_Comment [A utomated message] = 8348749) The system [employer] h generated this result transmitted ref erence range: 5.0, 5.5 , 6.0, 6.5, 7.0, 7.5, 8.0, 8.5. The refere nce range was not u sed to interpret this result as normal/abnor mal. Protein urine, POC (test Negative Negative code = 0011201) Urobilinogen urine, POC <2.0 See_Comment [Au tomated message] (test code = 8435894) The sy stem which generated this result transmitted ref erence range: <=2.0. T he reference range was not used to int erpret this result as normal/abnormal . Nitrite urine, POC (test Negative Negative code = 1570926) Leukocyte esterase Negative Negative urine, POC (test code = 4524422) Lab Interpretation (test Abnormal code = 04635-0) [facility] urinalysis [id number] 18:20:00 Test Item Value Reference Range Interpretation Comments Color urine, POC (test Straw code = 1969943) Clarity urine, POC (test Clear code = 5299126) Glucose urine, POC (test Negative Negative code = 9378576) Bilirubin urine, POC Negative Negative (test code = 3577527) Ketones urine, POC (test Negative Negative code = 4187198) Specific gravity urine, 1.005-1.030 POC (test code = 3179033) Blood urine, POC (test Trace Negative A code = 4232414) pH urine, POC (test code See_Comment [A utomated message] = 3113962) The system [employer] h generated this result transmitted ref erence range: 5.0, 5.5 , 6.0, 6.5, 7.0, 7.5, 8.0, 8.5. The refere nce range was not u sed to interpret this result as normal/abnor mal. Protein urine, POC (test Negative Negative code = 0771598) Urobilinogen urine, POC <2.0 See_Comment [Au tomated message] (test code = 6676541) The sy stem which generated this result transmitted ref erence range: <=2.0. T he reference range was not used to int erpret this result as normal/abnormal . Nitrite urine, POC (test Negative Negative code = 8915680) Leukocyte esterase Negative Negative urine, POC (test code = 7572605) Lab Interpretation (test Abnormal code = 03789-2) [facility] urinalysis [id number] 18:20:00 Test Item Value Reference Range Interpretation Comments Color urine, POC (test Straw code = 5471388) Clarity urine, POC (test Clear code = 8113697) Glucose urine, POC (test Negative Negative code = 8490716) Bilirubin urine, POC Negative Negative (test code = 8276887) Ketones urine, POC (test Negative Negative code = 5007661) Specific gravity urine, 1.005-1.030 POC (test code = 7051327) Blood urine, POC (test Trace Negative A code = 2641041) pH urine, POC (test code See_Comment [A utomated message] = 2639686) The system [employer] generated this result transmitted ref erence range: 5.0, 5.5 , 6.0, 6.5, 7.0, 7.5, 8.0, 8.5. The refere nce range was not u sed to interpret this result as normal/abnor mal. Protein urine, POC (test Negative Negative code = 5801286) Urobilinogen urine, POC <2.0 See_Comment [Au tomated message] (test code = 9391298) The sy stem which generated this result transmitted ref erence range: <=2.0. T he reference range was not used to int erpret this result as normal/abnormal . Nitrite urine, POC (test Negative Negative code = 9485336) Leukocyte esterase Negative Negative urine, POC (test code = 3680839) Lab Interpretation (test Abnormal code = 16393-8) [facility] urinalysis [id number] 18:20:00 Test Item Value Reference Range Interpretation Comments Color urine, POC (test Straw code = 3577246) Clarity urine, POC (test Clear code = 4744812) Glucose urine, POC (test Negative Negative code = 5690300) Bilirubin urine, POC Negative Negative (test code = 6722591) Ketones urine, POC (test Negative Negative code = 3848274) Specific gravity urine, 1.005-1.030 POC (test code = 8859007) Blood urine, POC (test Trace Negative A code = 3809465) pH urine, POC (test code See_Comment [A utomated message] = 0487433) The system [employer] generated this result transmitted ref erence range: 5.0, 5.5 , 6.0, 6.5, 7.0, 7.5, 8.0, 8.5. The refere nce range was not u sed to interpret this result as normal/abnor mal. Protein urine, POC (test Negative Negative code = 6345259) Urobilinogen urine, POC <2.0 See_Comment [Au tomated message] (test code = 4526257) The sy stem which generated this result transmitted ref erence range: <=2.0. T he reference range was not used to int erpret this result as normal/abnormal . Nitrite urine, POC (test Negative Negative code = 2427793) Leukocyte esterase Negative Negative urine, POC (test code = 6541155) Lab Interpretation (test Abnormal code = 90354-9) [facility] urinalysis [id number] 18:20:00 Test Item Value Reference Range Interpretation Comments Color urine, POC (test Straw code = 8794987) Clarity urine, POC (test Clear code = 2696903) Glucose urine, POC (test Negative Negative code = 4031915) Bilirubin urine, POC Negative Negative (test code = 2475185) Ketones urine, POC (test Negative Negative code = 0716274) Specific gravity urine, 1.005-1.030 POC (test code = 2680367) Blood urine, POC (test Trace Negative A code = 8608546) pH urine, POC (test code See_Comment [A utomated message] = 3907070) The system [employer] h generated this result transmitted ref erence range: 5.0, 5.5 , 6.0, 6.5, 7.0, 7.5, 8.0, 8.5. The refere nce range was not u sed to interpret this result as normal/abnor mal. Protein urine, POC (test Negative Negative code = 0936927) Urobilinogen urine, POC <2.0 See_Comment [Au tomated message] (test code = 1601302) The sy stem which generated this result transmitted ref erence range: <=2.0. T he reference range was not used to int erpret this result as normal/abnormal . Nitrite urine, POC (test Negative Negative code = 3067204) Leukocyte esterase Negative Negative urine, POC (test code = 1560916) Lab Interpretation (test Abnormal code = 33217-2) [facility] RNA [Presence] in Respiratory specimen by LATESHA with probe [id number] 09:55:01 Test Item Value Reference Range Interpretation Comments SARS-CoV-2 (COVID-19) RNA Not detected Not-Detected [Presence] in Respiratory specimen by LATESHA with probe detection (test code = 79313-3) Whether patient is employed in a healthcare setting (test code = 30224-4) Whether the patient has symptoms related to condition of interest (test code = 57096-6) Patient was hospitalized because of this condition (test code = 25671-2) Whether the patient was admitted to intensive care unit (ICU) for condition of interest (test code = 33985-5) Whether patient resides in a congregate care setting (test code = 08878-8) [facility]FKNSIYRQBGIC-FlE-1 (COVID-19) RNA [Presence] in Respiratory specimen by LATESHA with probe [id number] 03:07:44 Test Item Value Reference Range Interpretation Comments SARS-CoV-2 (COVID-19) RNA Not detected Not-Detected [Presence] in Respiratory specimen by LATESHA with probe detection (test code = 18952-5) Whether patient is employed in a healthcare setting (test code = 07704-2) Whether the patient has symptoms related to condition of interest (test code = 74744-3) Patient was hospitalized because of this condition (test code = 43627-5) Whether the patient was admitted to intensive care unit (ICU) for condition of interest (test code = 51133-7) Whether patient resides in a congregate care setting (test code = 01146-9) [facility]ENTERWDWMREYQZRTY-KzP-3 (COVID-19) RNA [Presence] in Respiratory specimen by LATESHA with probe [id number] 02:34:50 Test Item Value Reference Range Interpretation Comments SARS-CoV-2 (COVID-19) RNA Not detected Not-Detected [Presence] in Respiratory specimen by LATESHA with probe detection (test code = 45353-9) Whether patient is employed in a healthcare setting (test code = 12163-0) Whether the patient has symptoms related to condition of interest (test code = 13965-2) Patient was hospitalized because of this condition (test code = 59206-6) Whether the patient was admitted to intensive care unit (ICU) for condition of interest (test code = 13448-7) Whether patient resides in a congregate care setting (test code = 71716-7) [facility]ONOR[facility]ENTERRQCHBVBOAZZA-LgA-2 (COVID-19) RNA [Presence] in Respiratory specimen by LATESHA with probe [id number] 22:46:50 Test Item Value Reference Range Interpretation Comments SARS-CoV-2 (COVID-19) RNA Not detected Not-Detected [Presence] in Respiratory specimen by LATESHA with probe detection (test code = 41921-1) [facility] [place]-[facility] (COVID-19) RNA [Presence] in Respiratory specimen by LATESHA with probe [id number] 10:19:38 Test Item Value Reference Range Interpretation Comments SARS-CoV-2 (COVID-19) RNA Not detected Not-Detected [Presence] in Respiratory specimen by LATESHA with probe detection (test code = 62098-0) [facility] [place]-CoV-2 (COVID-19) RNA [Presence] in Respiratory specimen by LATESHA with probe [id number] 00:17:03 Test Item Value Reference Range Interpretation Comments SARS-CoV-2 (COVID-19) RNA Not detected Not-Detected [Presence] in Respiratory specimen by LATESHA with probe detection (test code = 12928-7) [facility] [place]-CoV-2 (COVID-19) RNA [Presence] in Respiratory specimen by LATESHA with probe [id number] 00:59:15 Test Item Value Reference Range Interpretation Comments SARS-CoV-2 (COVID-19) RNA Not detected Not-Detected [Presence] in Respiratory specimen by LATESHA with probe detection (test code = 10526-8) [place] [address]+ i-STAT [id number] 08:12:00 Test Item Value Reference [...] PELVIS WITHOUT CONTRAST, RENAL STONE PROTOCOL:Location code: [id number] HISTORY: Flank painCOMPARISON: CT abdomen and pelvis [...] Range Interpretation Comments COLOR (test code = [place] YELLOW A COLU) CLARITY (test code = [...] 11:03:05CT abdomen and pelvis with contrastLocation Code: [id number] HISTORY: Lower abdominal painCOMPARISON: NoneTechnique: Helical CT [...]
--- NOTE | 2022-04-15 21:13 | RAD REPORT ---
EXAM DESCRIPTION: Julita Single View04/15/2022 9:06 pm CLINICAL HISTORY: Chest pain COMPARISON: February 2022 FINDINGS: The lungs appear clear of acute infiltrate. The heart is normal size IMPRESSION: No acute abnormalities displayed
[2022-04-15 21:35] LABS: Urine Blood Negative (Negative); Urine Glucose Negative (Negative); Urine Protein Negative (Negative)
[2022-04-15 21:37] LABS: Hematocrit 43.4 % (36.0-45.0); Lymphocytes % 30.3 % (15.3-44.8); MCV 90.2 fL (80-100); MPV 7.7 fL (7.6-11.3); Protime INR 1.07; RBC Red Blood Cell Count 4.81 M/uL (3.86-4.86)
[2022-04-15] MEDS ORDERED: KETOROLAC 30 MG/ML INJ ONE (21:38)
[2022-04-15 21:56] LABS: Bicarbonate 29 mmol/L (21-32); Potassium 4.4 mmol/L (3.5-5.1); Sodium Level 139 mmol/L (136-145)
[2022-04-15 21:57] LABS: ALT/SGPT 48 U/L (13-56); AST/SGOT 28 U/L (15-37); Alkaline Phosphatase 59 U/L (45-117); BUN Blood Urea Nitrogen 16 mg/dL (7-18); Bilirubin Total 0.2 mg/dL (0.2-1.0); Glomerular Filtration Rate 85 ml/min (=/>90); Glucose Level 110 mg/dL (74-106)
[2022-04-15 21:58] LABS: Bilirubin Direct < 0.1 mg/dL (0-0.2)
[2022-04-15 21:59] LABS: Magnesium 2.1; NT PRO-BNP 21 pg/mL (<125); Troponin High Sensitivity 3.7 (<58.9)
--- NOTE | 2022-04-15 22:19 | ER ---
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 Coronavirus screen: Vaccine status: Patient reports receiving the 2nd dose of the covid vaccine. Ebola Screen: Patient negative for fever greater than or equal to 101.5 degrees Fahrenheit, and additional compatible Ebola Virus Disease symptoms. Initial Sepsis Screen: Does the patient meet any 2 criteria? No. Patient's initial sepsis screen is negative. Does the patient have a suspected source of infection?. 20:24 Method Of Arrival: Ambulatory kl 20:24 Acuity: SHARAN 3 kl Triage Assessment: 20:25 General: Appears distressed, uncomfortable, well groomed, Behavior is cooperative, kl anxious. Pain: Complains of pain in CHEST PAIN AND HEAD Pain currently is 5 out of 10 on a pain scale. Cardiovascular: Reports chest pain, lightheadedness. Historical: - Allergies: 20:25 No Known Allergies; kl - Home Meds: 20:25 amlodipine 5 mg tab 1 tab once daily [Active]; kl - PMHx: 20:25 cervical cancer; Hep C , in remission; Hypertensive disorder; kl - PSHx: 20:25 section; neck; kl - Immunization history:: Adult Immunizations not up to date. - Social history:: Smoking status: Patient reports the use of cigarette tobacco products, smokes one-half pack cigarettes per day. Screenin:00 [facility] ED Fall Risk Assessment (Adult) History of falling in the last 3 months, jb4 including since admission No falls in past 3 months (0 pts) Confusion or Disorientation No (0 pts) Intoxicated or Sedated No (0 pts) Impaired Gait No (0 pts) Mobility Assist Device Used No (0 pt) Altered Elimination No (0 pt) Score/Fall Risk Level 0 - 2 = Low Risk Oriented to surroundings, Maintained a safe environment. Abuse screen: Denies threats or abuse. Nutritional screening: No deficits noted. Tuberculosis screening: No symptoms or risk factors identified. Assessment: 21:00 General: Appears in no apparent distress. comfortable, Behavior is calm, cooperative, jb4 appropriate for age. Pain: Complains of pain in anterior aspect of left upper chest Pain radiates to left arm Pain currently is 5 out of 10 on a pain scale. Quality of pain is described as burning. Neuro: Level of Consciousness is awake, alert, obeys commands, Oriented to person, place, time, situation. Cardiovascular: Patient's skin is warm and dry. Respiratory: Airway is patent Respiratory effort is even, unlabored, Respiratory pattern is regular, symmetrical. GI: No signs and/or symptoms were reported involving the gastrointestinal system. : No signs and/or symptoms were reported regarding the genitourinary system. EENT: No signs and/or symptoms were reported regarding the EENT system. Derm: Skin is intact, Skin is pink, warm \T\ dry. Musculoskeletal: Circulation, motion, and sensation intact. Range of motion: intact in all extremities. 22:00 Reassessment: Patient appears in no apparent distress at this time. Patient and/or jb4 family updated on plan of care and expected duration. Pain level reassessed. Patient is alert, oriented x 3, equal unlabored respirations, skin warm/dry/pink. Vital Signs: 20:23 BP 139 / 85; Pulse 86; Resp 18; Temp 97.5(TE); Pulse Ox 100% on R/A; Weight 79.38 kg; kl Height 5 ft. 2 in. (157.48 cm); Pain 5/10; 21:20 BP 119 / 84; Pulse 59; Resp 18; Pulse Ox 96% on R/A; jb4 22:00 BP 112 / 67; Pulse 58; Resp 18; Pulse Ox 94% on R/A; jb4 20:23 Body Mass Index 32.01 (79.38 kg, 157.48 cm) ED Course: 20:17 Patient arrived in ED. jj6 20:25 Triage completed. kl 20:26 EKG completed in triage. Results shown to MD. 20:50 Tameka Banegas MD is Attending Physician. sp3 21:00 Patient has correct armband on for positive identification. Bed in low position. Call jb4 light in reach. Side rails up X 1. Client placed on continuous cardiac and pulse oximetry monitoring. NIBP monitoring applied. 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 EDMS 21:10 Christina Ashton, RN is Primary Nurse. mb9 21:29 Basic Metabolic Panel Sent. jb4 21:29 CBC with Diff Sent. jb4 21:29 LFT's Sent. jb4 21:29 Magnesium Sent. jb4 21:30 NT PRO-BNP Sent. jb4 21:30 PT-INR Sent. jb4 21:30 Troponin HS Sent. jb4 22:38 No provider procedures requiring assistance completed. IV discontinued, intact, jb4 bleeding controlled, No redness/swelling at site. Pressure dressing applied. Patient maintains SpO2 saturation greater than 95% on room air. Administered Medications: 21:39 Drug: Ketorolac 30 mg Route: IVP; Site: right antecubital; jb4 Outcome: 22:18 Discharge ordered by . sp3 22:38 Discharged to home ambulatory. jb4 22:38 Condition: stable 22:38 Discharge instructions given to patient, Instructed on discharge instructions, follow up and referral plans. Demonstrated understanding of instructions, follow-up care. 22:39 Patient left the ED. jb4 Signatures: Dispatcher [employer] EDMS Gini Glover, RN Henrry Mueller RN RN jb4 Tameka Banegas MD MD sp3 Kortney Celisj6 Christina Ashton, SCOTTY RN mb9
--- NOTE | 2022-04-15 22:19 | EDPHYS ---
Physician Documentation [facility] Name: Fany Meza Age: 51 yrs Sex: Female : 1970 Arrival Date: 04/15/2022 Time: 20:17 Bed 8 Private MD: ED Physician Tameka Banegas HPI: 04/15 21:13 This 51 yrs old Female presents to ER via Ambulatory with complaints of Chest Pain, sp3 Dizziness, High Blood Pressure. 21:13 51-year-old female with history of cervical cancer, hepatitis C in remission, sp3 hypertension, prior kidney stone presents with left-sided shoulder and chest pain worse when she moves her arm. She denies any injury. Review of systems negative for headache, fever, URI symptoms, back pain, substernal chest pain, shortness of breath, abdominal pain, rash, travel history, known sick contacts, or any other symptoms or aspects of ROS at this time.. Historical: - Allergies: 20:25 No Known Allergies; kl - Home Meds: 20:25 amlodipine 5 mg tab 1 tab once daily [Active]; kl - PMHx: 20:25 cervical cancer; Hep C , in remission; Hypertensive disorder; kl - PSHx: 20:25 section; neck; kl - Immunization history:: Adult Immunizations not up to date. - Social history:: Smoking status: Patient reports the use of cigarette tobacco products, smokes one-half pack cigarettes per day. ROS: 21:15 Constitutional: Negative for fever, chills, and weight loss, Eyes: Negative for injury, sp3 pain, redness, and discharge, ENT: Negative for injury, pain, and discharge, Neck: Negative for injury, pain, and swelling, Respiratory: Negative for shortness of breath, cough, wheezing, and pleuritic chest pain, Back: Negative for injury and pain, : Negative for injury, bleeding, discharge, and swelling, Skin: Negative for injury, rash, and discoloration, Neuro: Negative for headache, weakness, numbness, tingling, and seizure, Psych: Negative for depression, anxiety, suicide ideation, homicidal ideation, and hallucinations, Allergy/Immunology: Negative for hives, rash, and allergies, Endocrine: Negative for neck swelling, polydipsia, polyuria, polyphagia, and marked weight changes, Hematologic/Lymphatic: Negative for swollen nodes, abnormal bleeding, and unusual bruising. 21:15 All other systems are negative. Exam: 21:15 Constitutional: This is a well developed, well nourished patient who is awake, alert, sp3 and in no acute distress. Head/Face: Normocephalic, atraumatic. Eyes: Pupils equal round and reactive to light, extra-ocular motions intact. Lids and lashes normal. Conjunctiva and sclera are non-icteric and not injected. Cornea within normal limits. Periorbital areas with no swelling, redness, or edema. ENT: Nares patent. No nasal discharge, no septal abnormalities noted. External auditory canals are clear. Oropharynx with no redness, swelling, or masses, exudates, or evidence of obstruction, uvula midline. Mucous membranes moist. Neck: Trachea midline, no thyromegaly or masses palpated, and no cervical lymphadenopathy. Supple, full range of motion without nuchal rigidity, or vertebral point tenderness. No Meningismus. Cardiovascular: Regular rate and rhythm with a normal S1 and S2. No gallops, murmurs, or rubs. Normal PMI, no JVD. No pulse deficits. Respiratory: Lungs have equal breath sounds bilaterally, clear to auscultation and percussion. No rales, rhonchi or wheezes noted. No increased work of breathing, no retractions or nasal flaring. Abdomen/GI: Soft, non-tender, with normal bowel sounds. No distension or tympany. No guarding or rebound. No evidence of tenderness throughout. Back: No spinal tenderness. No costovertebral tenderness. Full range of motion. Skin: Warm, dry with normal turgor. Normal color with no rashes, no lesions, and no evidence of cellulitis. MS/ Extremity: Pulses equal, no cyanosis. Neurovascular intact. Full, normal range of motion. Neuro: Awake and alert, GCS 15, oriented to person, place, time, and situation. Cranial nerves II-XII grossly intact. Motor strength 5/5 in all extremities. Sensory grossly intact. Cerebellar exam normal. Normal gait. 21:15 Chest/axilla: Chest pain to palpation subclavicular lesion and deltoid area along the rotator cuff of the left shoulder. Is worse when she abducts her shoulder. Cardiovascular exam is normal.. 21:18 ECG was reviewed by the Attending Physician. G demonstrates normal sinus rhythm at 74 sp3 bpm with normal intervals, normal QRS, normal axis, normal ST/T-segment without evidence of acute ischemia. Vital Signs: 20:23 BP 139 / 85; Pulse 86; Resp 18; Temp 97.5(TE); Pulse Ox 100% on R/A; Weight 79.38 kg; kl Height 5 ft. 2 in. (157.48 cm); Pain 5/10; 21:20 BP 119 / 84; Pulse 59; Resp 18; Pulse Ox 96% on R/A; jb4 22:00 BP 112 / 67; Pulse 58; Resp 18; Pulse Ox 94% on R/A; jb4 20:23 Body Mass Index 32.01 (79.38 kg, 157.48 cm) kl MDM: 21:10 Patient medically screened. sp3 21:16 Data reviewed: vital signs, nurses notes. ED course: 51-year-old female with sp3 musculoskeletal type left-sided chest pain. I am not highly suspicious for cardiovascular etiology including acute coronary syndrome, aortic dissection or aneurysm, pulmonary embolism, primary pulmonary pathology including pneumonia and bronchitis. Will obtain EKG, chest x-ray, cardiovascular labs including troponin. Given length of her symptoms over 24 hours, single troponin will effectively rule out myocardial injury. Also obtain urinalysis since patient states on ROS diet she did have some urinary frequency. If work-up is negative, will discharge patient home. We will administer ketorolac 30 mg IV once in the ED for symptomatic treatment.. 22:16 ED course: Labs negative including troponin and urinalysis. Patient feels better and we sp3 will discharge patient home at this time.. 04/15 20:51 Order name: Basic Metabolic Panel 3 04/15 20:51 Order name: CBC with Diff; Complete Time: 21:49 3 04/15 20:51 Order name: LFT's 3 04/15 20:51 Order name: Magnesium sp3 04/15 20:51 Order name: NT PRO-BNP 3 04/15 20:51 Order name: PT-INR; Complete Time: 21:49 3 04/15 20:51 Order name: Troponin HS 3 04/15 20:51 Order name: XRAY Chest (1 view); Complete Time: 21:49 3 04/15 20:51 Order name: EKG; Complete Time: 20:53 sp3 04/15 20:51 Order name: Cardiac monitoring; Complete Time: 21:12 sp3 04/15 20:51 Order name: EKG - Nurse/Tech; Complete Time: 21:12 sp3 04/15 21:35 Order name: Urine --Ancillary (enter results); Complete Time: 21:49 wm 04/15 21:35 Order name: Urine Dipstick-Ancillary; Complete Time: 21:49 EDMS 04/15 20:51 Order name: IV Saline Lock; Complete Time: 21:29 sp3 04/15 20:51 Order name: Labs collected and sent; Complete Time: 21:29 sp3 04/15 20:51 Order name: O2 Per Protocol; Complete Time: 21:11 sp3 04/15 20:51 Order name: O2 Sat Monitoring; Complete Time: 21:12 sp3 04/15 21:10 Order name: Urine Dipstick-Ancillary (obtain specimen); Complete Time: 22:04 sp3 Administered Medications: 21:39 Drug: Ketorolac 30 mg Route: IVP; Site: right antecubital; jb4 Disposition Summary: 04/15/22 22:18 Discharge Ordered Location: Home sp3 Condition: Stable sp3 Diagnosis - Chest pain, unspecified sp3 - Unspecified symptoms and signs involving the musculoskeletal system sp3 Followup: sp3 - With: Private Physician - When: Upon discharge from the Emergency Department - Reason: Recheck today's complaints Discharge Instructions: - Discharge Summary Sheet sp3 - Chest Wall Pain sp3 Forms: - Medication Reconciliation Form sp3 - Thank You Letter sp3 - Antibiotic Education sp3 - Prescription Opioid Use sp3 Signatures: Dispatcher [employer] Gini Bella, RN Henrry Mueller RN RN jb4 Tameka Banegas MD MD sp3
[2022-04-15 22:20] LABS: Albumin 4.3 g/dL (3.4-5.0); Protein, Total 7.8 g/dL (6.4-8.2)
[2022-04-15 22:52] VITALS: TEMP 97.5
[2022-04-15 22:54] VITALS: BP 112/67; O2SAT 94
--- NOTE | 2022-04-16 15:22 | EKG ---
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
== END 2022-04-15 22:39 | disposition home or self-care (01) ==
LOC: ER 20:13
DX: R07.89 Other chest pain (principal); R29.91 Unspecified symptoms and signs involving the musculoskeletal system; I10 Essential (primary) hypertension; F17.210 Nicotine dependence, cigarettes, uncomplicated
CPT/HCPCS: 36415; 71045; 80048; 80076; 81003; 81025; 83735; 83880; 84484; 85025; 85610; 93005; 96374; 99284

== ENCOUNTER 2022-04-23 14:48 | Observation (INO) | payer OTHER ==
--- OUTSIDE RECORDS SUMMARY | 2022-04-23 15:00 | XMS REPORT | Continuity of Care Document ---
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 -acetaminop 6-21 06-[address] [facility] ([employer]) 00:00: 00:00 mouth [facility] 5-325 mg 00 :00 every 6 l per tablet (six) hours as needed for moderate pain or severe pain for up to 2 days .acute pain. Max Daily Amount: 4 tablets HYDROcodone 2022-0 2021- No [id number] 1{tbl} Q6H Take 1 [facility] -acetaminop 6-21 06-[address] [facility] ([employer]) 00:00: 00:00 mouth [facility]-325 mg 00 :00 every 6 l per tablet (six) hours as needed for moderate pain or severe pain for up to 2 days .acute pain. Max Daily Amount: 4 tablets HYDROcodone 2-0 2021- No [id number] 1{tbl} Q6H Take 1 [facility] -acetaminop 6-21 06-[address] [facility] ([employer]) 00:00: 00:00 mouth [facility]-325 mg 00 :00 every 6 l per tablet (six) hours as needed for moderate pain or severe pain for up to 2 days .acute pain. Max Daily Amount: 4 tablets HYDROcodone 2-0 2021- No [id number] 1{tbl} Q6H Take 1 [facility] -acetaminop 6-21 06-[address] [facility] ([employer]) 00:00: 00:00 mouth [facility] 5-325 mg 00 :00 every 6 l per tablet (six) hours as needed for moderate pain or severe pain for up to 2 days .acute pain. Max Daily Amount: 4 tablets HYDROcodone 2021-0 2021- No [id number] 1{tbl} Q6H Take 1 [facility] -acetaminop 6-21 06-[address] [facility] ([employer]) 00:00: 00:00 mouth [facility]-325 mg 00 :00 every 6 l per tablet (six) hours as needed for moderate pain or severe pain for up to 2 days .acute pain. Max Daily Amount: 4 tablets HYDROcodone 2-0 2021- No [id number] 1{tbl} Q6H Take 1 [facility] -acetaminop 6-21 -[address] [facility] ([employer]) 00:00: 00:00 mouth [facility] 5-325 mg 00 :00 every 6 l per tablet (six) hours as needed for moderate pain or severe pain for up to 2 days .acute pain. Max Daily Amount: 4 tablets HYDROcodone 2-0 2021- No [id number] 1{tbl} Q6H Take 1 [facility] -acetaminop 6-21 06-[address] [facility] ([employer]) 00:00: 00:00 mouth [facility] 5-325 mg 00 :00 every 6 l per tablet (six) hours as needed for moderate pain or severe pain for up to 2 days .acute pain. Max Daily Amount: 4 tablets HYDROcodone 2022-0 2021- No 1{tbl} Q6H Take 1 [facility] -acetaminop 6-21 06-[address] [facility] ([employer]) 00:00: 00:00 mouth [facility]-325 mg 00 :00 every 6 l per tablet (six) hours as needed for moderate pain or severe pain for up to 2 days .acute pain. Max Daily Amount: 4 tablets HYDROcodone 2021-0 2021- No 1{tbl} Q6H Take 1 [facility] -acetaminop 6-21 06-[address] [facility] ([employer]) 00:00: 00:00 mouth [facility] 5-325 mg 00 :00 every 6 l per tablet (six) hours as needed for moderate pain or severe pain for up to 2 days .acute pain. Max Daily Amount: 4 tablets HYDROcodone 2021-0 2021- 1{tbl} Q6H Take 1 [facility] -acetaminop 6-21 06-[address] [facility] ([employer]) 00:00: 00:00 mouth [facility] 5-325 mg 00 :00 every 6 l per tablet (six) hours as needed for moderate pain or severe pain for up to 2 days .acute pain. Max Daily Amount: 4 tablets HYDROcodone 2021-0 2021- 1{tbl} Q6H Take 1 [facility] -acetaminop 6-21 06-[address] [facility] ([employer]) 00:00: 00:00 mouth [facility] 5-325 mg 00 :00 every 6 l per tablet (six) hours as needed for moderate pain or severe pain for up to 2 days .acute pain. Max Daily Amount: 4 tablets HYDROcodone 2021-0 2021- No 1{tbl} Q6H Take 1 [facility] -acetaminop 6-21 06-[address] [facility] ([employer]) 00:00: 00:00 mouth [facility] 5-325 mg 00 :00 every 6 l per tablet (six) hours as needed for moderate pain or severe pain for up to 2 days .acute pain. Max Daily Amount: 4 tablets HYDROcodone 2021-0 2021- No 1{tbl} Q6H Take 1 [facility] -acetaminop 6-21 06-[address] [facility] ([facility]) 00:00: 00:00 mouth [facility] 5-325 mg 00 :00 every 6 l per tablet (six) hours as needed for moderate pain or severe pain for up to 2 days .acute pain. Max Daily Amount: 4 tablets HYDROcodone 2021-0 2021- [place] [id number] 1{tbl} Q6H Take 1 [facility] -acetaminop 6-21 [...] QD Take 1 [facility] (NORVASC) 5 6- 08-19 tablet (5 st mg tablet 00:00: [...] DAILY WITH MEALS meclizine 2021- No 25mg Q.[id number] Take 1 [facility] (ANTIVERT) 08-26 [id number] tablet (25 st 25 mg 00:00: 00:00 3D mg total) [facility] tablet 00 :00 by mouth 3 l (three) times a day as needed for dizziness for up to 30 days. meclizine 2021- No 25mg Q.[id number] Take 1 [facility] (ANTIVERT) 08-26 [id number] tablet (25 st 25 mg 00:00: 00:00 3D mg total) [facility] a tablet 00 :00 by mouth 3 l (three) times a day as needed for dizziness for up to 30 days. meclizine 2021-2021- No 25mg Q.[id number] Take 1 [facility] (ANTIVERT) 08-26 [id number] tablet (25 st 25 mg 00:00: 00:00 3D mg total) Hospit a tablet 00 :00 by mouth 3 l (three) times a day as needed for dizziness for up to 30 days. meclizine 2021-0 2022- No 25mg Q.05045341 Take 1 [facility] (ANTIVERT) 517 06-10 [id number] tablet (25 st 25 mg 00:00: 00:00 3D mg total) Hospit a tablet 00 :00 by mouth 3 l (three) times a day as needed for dizziness for up to 30 days. meclizine 2021-0 2- No 25mg Q.[id number] Take 1 [facility] (ANTIVERT) 517 06-10 [id number] tablet (25 st 25 mg 00:00: 00:00 3D mg total) Hospit a tablet 00 :00 by mouth 3 l (three) times a day as needed for dizziness for up to 30 days. meclizine 2021-0 2021- No 25mg Q.[id number] Take 1 [facility] (ANTIVERT) 17 -10 [id number] tablet (25 st 25 mg 00:00: 00:00 3D mg total) Hospit a tablet 00 :00 by mouth 3 l (three) times a day as needed for dizziness for up to 30 days. pregabalin 2-0 2022- No 50mg Q.5D [...] times a day for 60 days. pregabalin 2021-2- No 50mg Q.5D Take 1 [facility] (Lyrica) 50 5-05 06-[address] [facility] capsule 00:00: 00:00 (50 mg [facility] 00 :00 total) by l mouth 2 (two) times a day for 60 days. pregabalin 2021-2021- No 50mg Q.5D Take 1 [facility] (Lyrica) 50 5-05 06-[address] [facility] capsule 00:00: 00:00 (50 mg [facility] 00 :00 total) by l mouth 2 (two) times a day for 60 days. doxycycline 2021-2021- No 100mg Take 100 [facility] (VIBRAMYCIN 4-30 06-[address] ) 100 MG 00:00: 00:00 mouth. Hospit a capsule 00 :00 l metroNIDAZO 2021-2- No 500mg Q.5D Take 500 [facility] LE [...] :00 (two) l times a day. doxycycline 2-0 2- No 100mg Take 100 [facility] (VIBRAMYCIN 4-30 06-[address] ) 100 MG 00:00: 00:00 mouth. Hospit a capsule 00 :00 l metroNIDAZO 2021-0 2- No 500mg Q.5D Take 500 [facility] (FLAGYL) 4-30 06-[address] 500 MG 00:00: 00:00 mouth 2 [facility]osp[facility] tablet 00 :00 (two) l times a day. doxycycline 2-0 2022- No 100mg Take 100 [facility] (VIBRAMYCIN [...] l times a day. acetaminoph 2021- No 1{tbl} Q6H Take 1-2 [facility] en-codeine 4-27 05-[address] (TYLENOL 00:00: 04:59 mouth [facility]osp[facility] WITH 00 :00 every 6 l CODEINE #3) (six) 300-30 mg hours as per tablet needed for moderate pain for up to 5 days .acute pain. acetaminoph 2021- [place] [id number] 1{tbl} Q6H Take 1-2 [facility] en-codeine 4-27 05-[address] (TYLENOL 00:00: 04:59 mouth [facility] WITH 00 :00 every 6 l CODEINE #3) (six) 300-30 mg hours as per tablet needed for moderate pain for up to 5 days .acute pain. acetaminoph 2021- No [id number] 1{tbl} Q6H Take 1-2 [facility]-codeine 4-27 05-[address] (TYLENOL 00:00: 04:59 mouth [facility] WITH 00 :00 every 6 l CODEINE #3) (six) 300-30 mg hours as per tablet needed for moderate pain for up to 5 [place] [id number] 1{tbl} Q6H Take 1-2 [facility] en-codeine 08-06-[address] (TYLENOL 00:00: 04:59 mouth [facility] WITH 00 :00 every 6 l CODEINE #3) (six) 300-30 mg hours as per tablet needed for moderate pain for up to 5 days .acute pain. acetaminoph 2021- [place] [id number] 1{tbl} Q6H Take 1-2 [facility] en-codeine 08-06-[address] (TYLENOL 00:00: 04:59 mouth [facility] WITH 00 :00 every 6 l CODEINE #3) (six) 300-30 mg hours as per tablet needed for moderate pain for up to 5 days [place] [id number] 1{tbl} Q6H Take 1-2 [facility] en-codeine 08-06-[address] (TYLENOL 00:00: 04:59 mouth [facility] WITH 00 :00 every 6 l CODEINE #3) (six) 300-30 mg hours as per tablet needed for moderate pain for up to 5 days .acute pain. amoxicillin 2021- No [id number] 500mg Q.5D Take 1 [facility] (AMOXIL) 07-[address] 500 MG 00:00: 04:59 (500 mg Hospita tablet 00 :00 total) by l mouth 2 (two) times a day for 7 days. amoxicillin 2021- No [id number] 500mg Q.5D Take 1 [facility] (AMOXIL) 07-[address] 500 MG 00:00: :59 (500 mg [facility]ospita tablet 00 :00 total) by l mouth 2 (two) times a day for 7 days. amoxicillin 2021- No [id number] 500mg Q.5D Take 1 [facility] (AMOXIL) 07-[address] 500 MG 00:00: 04:59 (500 mg [facility]osp[facility] tablet 00 :00 total) by l mouth 2 (two) times a day for 7 days. amoxicillin 2021- No [id number] 500mg Q.5D Take 1 [facility] (AMOXIL) 07-[address] 500 MG 00:00: 04:59 (500 mg [facility]osp[facility] tablet 00 :00 total) by l mouth 2 (two) times a day for 7 days. amoxicillin 2021- No [id number] 500mg Q.5D Take 1 [facility] (AMOXIL) 07-24- tablet st 500 MG 00:00: 04:59 (500 mg [facility]osp[facility] tablet 00 :00 total) by l mouth 2 (two) times a day for 7 days. amoxicillin 2021- No [id number] 500mg Q.5D Take 1 [facility] (AMOXIL) 07-24 [...] Q24H Place 1 [facility] (Nicoderm 4-13 14 } patch on [facility]) 21 00:00: 04:59 the skin Hospit a mg/24 hr 00 :00 daily for l 30 days. nicotine 2021- No 1{patch Q24H Place 1 [facility] (Nicoderm 413 14 } patch on [facility]) 21 00:00: 04:59 [facility] a mg/24 hr 00 :00 daily for l 30 days. amLODIPine 2021-2021- No 5mg QD Take 1 [facility] (NORVASC) 5 - 06-02 tablet (5 st mg tablet 00:00: [...] (two) times a day with meals. naproxen 2022-0 2022- No 500mg Q.5D Take [...] 100mg Q8H Take 1 [facility] (TESSALON) 06-30-[address] 100 MG 00:00: 04:59 (100 [...] Q8H Take 1 [facility] (TESSALON) 3-31 07- capsule st 100 MG 00:00: 04:59 (100 mg Hospita capsule 00 :00 total) by l mouth every 8 (eight) hours for 30 days. ibuprofen 0 2021- No 800mg Q6H Take 1 Meth [...] 100mg Q8H Take 1 [facility] (TESSALON) 3- 04-[address] 100 MG 00:00: 04:59 (100 mg Hospita capsule 00 :00 total) by l mouth every 8 (eight) hours for 30 days. ibuprofen No 800mg Q6H Take 1 [facility] [...] 8 (eight) hours for 30 days. amoxicillin No [id number] 500mg Q.5D Take 1 [facility] (AMOXIL) 06-[address] 500 MG 00:00: 04:59 (500 mg Hospita tablet 00 :00 total) by l mouth in the morning and 1 tablet (500 mg total) before bedtime. Do all this for 7 days. amoxicillin No [id number] 500mg Q.5D Take 1 [facility] (AMOXIL) 06-[address] 500 MG 00:00: 04:59 (500 mg [facility]osp[facility] tablet 00 :00 total) by l mouth in the morning and 1 tablet (500 mg total) before bedtime. Do all this for 7 days. amoxicillin No [id number] 500mg Q.5D Take 1 [facility] (AMOXIL) 06-[address] 500 MG 00:00: 04:59 (500 mg [facility]osp[facility] tablet 00 :00 total) by l mouth in the morning and 1 tablet (500 mg total) before bedtime. Do all this for 7 days. amoxicillin No [id number] 500mg Q.5D Take 1 [facility] (AMOXIL) 06-[address] 500 MG 00:00: 04:59 (500 mg [facility]osp[facility] tablet 00 :00 total) by l mouth in the morning and 1 tablet (500 mg total) before bedtime. Do all this for 7 days. amoxicillin No [id number] 500mg Q.5D Take 1 [facility] (AMOXIL) 06-[address] 500 MG 00:00: 04:59 (500 mg [facility]osp[facility] tablet 00 :00 total) by l mouth in the morning and 1 tablet (500 mg total) before bedtime. Do all this for 7 days. amoxicillin 2021-2021- No [id number] 500mg Q.5D Take 1 [facility] (AMOXIL) 06-18 [...] (two) times a day with meals. naproxen 2021-2021- No 500mg Q.5D Take 1 [facility] (Naprosyn) 06-[address] 500 MG 00:00: 00:00 (500 mg Hospita tablet 00 :00 total) by l mouth 2 (two) times a day with meals. naproxen 2021-2021- No 500mg Q.5D Take 1 [...] times a day with meals. amLODIPine 2021-0 2- No [facility] (NORVASC) 2- 04-05 st [...] 00 :00 l HYDROcodone 2021-0 2021- No [id number] 1{tbl} Q6H Take 1 [facility] -acetaminop 05-[address] [facility] ([employer]) 00:00: 05:59 mouth [facility] 5-325 mg 00 :00 every 6 l per tablet (six) hours as needed for moderate pain for up to 5 days .acute pain. Max Daily Amount: 4 tablets HYDROcodone 2021-0 2021- No [id number] 1{tbl} Q6H Take 1 [facility] -acetaminop 05-[address] [facility] ([employer]) 00:00: 05:59 mouth [facility] 5-325 mg 00 :00 every 6 l per tablet (six) hours as needed for moderate pain for up to 5 days .acute pain. Max Daily Amount: 4 tablets HYDROcodone 2022-0 2022- No [id number] 1{tbl} Q6H Take 1 [facility] -acetaminop 05-[address] [facility] ([place]) 00:00: 05:59 mouth [facility] 5-325 mg 00 :00 every 6 l per tablet (six) hours as needed for moderate pain for up to 5 days .acute pain. Max Daily Amount: 4 tablets HYDROcodone 2021-0 2021- No 1{tbl} Q6H Take 1 [facility] -acetaminop 05-[address] [facility] ([place]) 00:00: 05:59 mouth [facility] 5-325 mg 00 :00 every 6 l per tablet (six) hours as needed for moderate pain for up to 5 days .acute pain. Max Daily Amount: 4 tablets HYDROcodone 2021-0 1{tbl} Q6H Take 1 [facility] -acetaminop 05-[address] [facility] ([place]) 00:00: 05:59 mouth [facility] 5-325 mg 00 :00 every 6 l per tablet (six) hours as needed for moderate pain for up to 5 days .acute pain. Max Daily Amount: 4 tablets HYDROcodone 2021-0 No 1{tbl} Q6H Take 1 [facility] -acetaminop 05-[address] [facility] ([place]) 00:00: 05:59 mouth [facility] 5-325 mg 00 :00 every 6 l per tablet (six) hours as needed for moderate pain for up to 5 days .acute pain. Max Daily Amount: 4 tablets acetaminoph 2021-0 No 1{tbl} Q6H Take 1-2 [facility] en-codeine 05-[address] (TYLENOL 00:00: 00:00 mouth [facility]osp[facility] WITH 00 :00 every 6 l CODEINE #3) (six) 300-30 mg hours as per tablet needed for moderate pain for up to 15 days .acute pain. acetaminoph 2021-0 No 1{tbl} Q6H Take 1-2 [facility] en-codeine [...] for up to 30 doses. ibuprofen 2021-0 2022- No 600mg Q6H Take 1 [facility] (ADVIL) 600 04-12-[address] [facility] tablet 00:00: 00:00 (600 mg [facility] 00 :00 total) by l mouth every 6 (six) hours as needed for mild pain for up to 30 doses. ibuprofen 2021- No 600mg Q6H Take 1 [facility] (ADVIL) 600 04-[address] MG tablet 00:00: 00:00 (600 mg [facility] 00 :00 total) by l mouth every 6 (six) hours as needed for mild pain for up to 30 doses. ibuprofen 2021- No 600mg Q6H Take 1 [facility] (ADVIL) 600 04-[address] MG tablet 00:00: 00:00 (600 mg [facility] 00 :00 total) by l mouth every 6 (six) hours as needed for mild pain for up to 30 [place] [id number] 1{tbl} Q6H Take 1 [facility] en-codeine 04-[address] (TYLENOL 00:00: 05:59 mouth [facility]osp[facility] WITH 00 :00 every 6 l CODEINE #3) (six) 300-30 mg hours as per tablet needed for severe pain for up to 5 days .acute pain. acetaminoph No 1{tbl} Q6H Take 1 [facility] en-codeine 04-[address] (TYLENOL 00:00: 05:59 mouth [facility]osp[facility] WITH 00 :00 every 6 l CODEINE #3) (six) 300-30 mg hours as per tablet needed for severe pain for up to 5 days .acute pain. acetaminoph No 1{tbl} Q6H Take 1 [facility] en-codeine 04-[address] (TYLENOL 00:00: 05:59 mouth [facility] WITH 00 :00 every 6 l CODEINE #3) (six) 300-30 mg hours as per tablet needed for severe pain for up to 5 days .[place] [id number] 1{tbl} Q6H Take 1 [facility] en-codeine 04-[address] (TYLENOL 00:00: 05:59 mouth [facility] WITH 00 :00 every 6 l CODEINE #3) (six) 300-30 mg hours as per tablet needed for severe pain for up to 5 days .[place] [id number] 1{tbl} Q6H Take 1 [facility] en-codeine 04-[address] (TYLENOL 00:00: 05:59 mouth [facility] WITH 00 :00 every 6 l CODEINE #3) (six) 300-30 mg hours as per tablet needed for severe pain for up to 5 [place] [id number] 50mg Q6H Take 1 [facility] (ULTRAM) 50 04-12 tablet (50 s t mg tablet 00:00: 00:00 mg total) Ho spita 00 :00 by mouth l every 6 (six) hours as needed for moderate pain for up to 5 days [place] [id number] 50mg Q6H Take 1 [facility] (ULTRAM) 50 04-12 tablet (50 s t mg tablet 00:00: 00:00 mg total) Ho [facility]ita 00 :00 by mouth l every 6 (six) hours as needed for moderate pain for up to 5 days .[place] [id number] 50mg Q6H Take 1 [facility] (ULTRAM) 50 04-12 tablet (50 s t mg tablet 00:00: 00:00 mg total) Ho spita 00 :00 by mouth l every 6 (six) hours as needed for moderate pain for up to 5 days .[place] [id number] 50mg Q6H Take 1 [facility] (ULTRAM) [...] [facility]ATARAX[facility] 00 times daily as needed for Itching or Anxiety. hydrOXYzine 2020-1 Yes Anxiety 10mg Take 1 H [facility] (ATARAX) 10 0-26 tablet by [facility] lth mg tablet 00:00: mouth 3 00 times daily as needed for Itching or Anxiety. baclofen 2020-0 Yes Neck pain 10mg Take 1 [facility] (LIORESAL) 9-24 tablet by [facility] 10 mg 00:00: mouth 2 tablet 00 times daily as needed (muscle spasms) STOP cyclobenza kasia (FLEXERIL) 10 mg tablet. baclofen 2020-0 Yes Neck pain 10mg Take 1 [facility] (LIORESAL) 9-24 tablet by [facility] 10 mg 00:00: mouth 2 tablet 00 times daily as needed (muscle spasms) STOP cyclobenza kasia (FLEXERIL) 10 mg tablet. baclofen 2020-0 Yes Neck pain 10mg Take 1 [facility] (LIORESAL) 9-24 tablet by [facility] 10 mg 00:00: mouth 2 tablet 00 times daily as needed (muscle spasms) STOP cyclobenza kasai (FLEXERIL) 10 mg tablet. baclofen 2020-0 Yes Neck pain 10mg Take 1 [facility] (LIORESAL) 9-24 tablet by [facility] 10 mg 00:00: mouth 2 tablet 00 times daily as needed (muscle spasms) STOP cyclobenza kasia (FLEXERIL) 10 mg tablet. baclofen 2020-0 Yes Neck pain 10mg Take 1 [facility] (LIORESAL) 9-24 tablet by [facility] 10 mg 00:00: mouth 2 tablet 00 times daily as needed (muscle spasms) STOP cyclobenza kasia (FLEXERIL) 10 mg tablet. baclofen 2020-0 Yes Neck pain 10mg Take 1 [facility] (LIORESAL) 9-24 tablet by [facility] 10 mg 00:00: mouth 2 tablet 00 times daily as needed (muscle spasms) STOP cyclobenza kasia (FLEXERIL) 10 mg tablet. amitriptyli 2020-0 Yes Neck pain 25mg Take 1 [facility] (ELAVIL) 9-03 tablet by [facility] 25 mg 00:00: mouth at tablet 00 [...] bedtime nightly. varenicline 2020-0 Yes Encounter Start Timoteo (CHANTIX) [...] times daily.. varenicline 2020-0 Yes Encounter Start iTmoteo (CHANTIX) 09-11 for smoking taking H ealth 0.5 mg 00:00: cessation this tablet 00 counseling medication 1 week prior to setting a quit date for smoking. Stop smoking on day 8.Days 1 to 3: take 1 tablet once dailyDays 4 to 7: take 1 tablet twice daily. varenicline 2020-0 Yes Encounter Start Timoteo (CHANTIX) 1 - for smoking taking Health mg tablet 00:00: [...] for Pain. MULTIVITAMI 2018-0 Yes Take by [facility] ris N (DAILY 9-24 mouth. Health VITAMIN OR) 08:09: 11 sulfamethox 2019-0 Yes 1{tbl} Q.5D Take 1 [facility] azole-trime 9-24 tablet by [facility] lt thoprim 08:09: mouth 2 (BACTRIM 11 times DS) 800-160 daily. mg per tablet MULTIVITAMI 2019-0 Yes Take by Tom ris N (DAILY 9-24 mouth. Health VITAMIN OR) 08:09: 11 sulfamethox 2019-0 Yes 1{tbl} Q.5D Take 1 [facility] azole-trime 9-24 tablet by [facility] thoprim 08:09: mouth 2 (BACTRIM 11 times DS) 800-160 daily. mg per tablet MULTIVITAMI 2019-0 Yes Take by [facility] ris N (DAILY 9-24 mouth. Health VITAMIN OR) 08:09: 11 sulfamethox 2019-0 Yes 1{tbl} Q.5D Take 1 [facility] azole-trime 9-24 tablet by [facility] thoprim 08:09: mouth 2 (BACTRIM 11 times DS) 800-160 daily. mg per tablet MULTIVITAMI 2019-0 Yes Take by [facility] ris N (DAILY 9-24 mouth. Health VITAMIN OR) 08:09: 11 sulfamethox 2019-0 Yes 1{tbl} Q.5D Take 1 [facility] azole-trime 9-24 tablet by [facility] thoprim 08:09: mouth 2 (BACTRIM 11 times DS) 800-160 daily. mg per tablet MULTIVITAMI 2019-0 Yes Take by [facility] ris N (DAILY 9-24 mouth. Health VITAMIN OR) 08:09: 11 sulfamethox 2019-0 Yes 1{tbl} Q.5D Take 1 [facility] azole-trime 9-24 tablet by [facility] 08:09: mouth 2 (BACTRIM 11 times DS) 800-160 daily. mg per tablet MULTIVITAMI 2019-0 Yes Take by Tom ris N (DAILY 9-24 mouth. Health VITAMIN OR) 08:09: 11 sulfamethox 2019-0 Yes 1{tbl} Q.5D Take 1 [facility] azole-trime 9-24 tablet by [facility] thoprim 08:09: mouth 2 (BACTRIM 11 [...] QUAD PF 2021-02-[address] 00:00:00 [facility] FLUCELVAX QUAD PF 2021-02-[address] 00:00:00 [facility] FLUCELVAX QUAD PF 2021-02-[address] 00:00:00 [facility] FLUCELVAX QUAD PF 2021-02-[address] 00:00:00 [facility] FLUCELVAX QUAD PF 2021-02-[address] 00:00:00 [facility] FLUCELVAX QUAD PF 2021-02-[address] 00:00:00 [facility] PFIZER COVID-19 MRNA 2020-08-05 Completed [facility] VACCINATION 00:00:00 [facility] PFIZER COVID-19 MRNA 2020-08-05 Completed [facility] VACCINATION 00:00:00 [facility] PFIZER COVID-19 MRNA 2020-08-05 Completed [facility] VACCINATION 00:00:00 [facility] PFIZER COVID-19 MRNA 2020-08-05 Completed [facility] VACCINATION 00:00:00 [facility] PFIZER COVID-19 MRNA 2020-08-05 Completed [facility] VACCINATION 00:00:00 [facility] PFIZER COVID-19 MRNA 2020-08-05 Completed [facility] VACCINATION 00:00:00 [facility] PFIZER COVID-19 MRNA 2020-07-08 Completed [facility] VACCINATION 00:00:00 [facility] PFIZER COVID-19 MRNA 2020-07-08 Completed [facility] VACCINATION 00:00:00 [facility] PFIZER COVID-19 MRNA 2020-07-08 Completed [facility] VACCINATION 00:00:00 [facility] PFIZER COVID-19 MRNA 2020-07-08 Completed [facility] VACCINATION 00:00:00 [facility] PFIZER COVID-19 MRNA 2020-07-08 Completed [facility] VACCINATION 00:00:00 [facility] PFIZER COVID-19 MRNA 2020-07-08 Completed [facility] VACCINATION 00:00:00 [facility] Influenza, 2020-03-12 Completed [facility] Vaccine<FLUCELVAX>(M 00:00:00 ulti-Dose) Tdap (Tetanus 2020-03-12 Completed [facility] th Toxoid, Reduced 00:00:00 Diphtheria Toxoid And Acellular Pertussis, Absorbed) Influenza, 2020-03-12 Completed [facility] Vaccine<FLUCELVAX>(M 00:00:00 ulti-Dose) Tdap (Tetanus 2020-03-12 Completed [facility] th Toxoid, Reduced 00:00:00 Diphtheria Toxoid And Acellular Pertussis, Absorbed) Influenza, 2020-03-12 Completed [facility] Vaccine<FLUCELVAX>(M 00:00:00 ulti-Dose) Tdap (Tetanus 2020-03-12 Completed [facility] th Toxoid, Reduced 00:00:00 Diphtheria Toxoid And Acellular Pertussis, Absorbed) Influenza, 2020-03-12 Completed [facility] Vaccine<FLUCELVAX>(M 00:00:00 ulti-Dose) Tdap (Tetanus 2020-03-12 Completed [facility] th Toxoid, Reduced 00:00:00 Diphtheria Toxoid And Acellular Pertussis, Absorbed) Influenza, 2020-03-12 Completed [facility] Vaccine<FLUCELVAX>(M 00:00:00 ulti-Dose) Tdap (Tetanus 2020-03-12 Completed [facility] th Toxoid, Reduced 00:00:00 Diphtheria Toxoid And Acellular Pertussis, Absorbed) Influenza, 2020-03-12 Completed [facility] Vaccine<FLUCELVAX>(M 00:00:00 ulti-Dose) Tdap (Tetanus 2020-03-12 Completed [facility] th Toxoid, Reduced 00:00:00 Diphtheria Toxoid And Acellular Pertussis, Absorbed) Vital Signs Vital Name Observation Time Observation Value Comments Source Systolic blood 2022-02-20 01:13:29 129 mm[Hg] [facility] pressure Diastolic blood 2022-02-20 01:13:29 67 mm[Hg] [facility] pressure Heart rate 2022-02-20 01:13:29 60 /min [facility] Respiratory rate 2022-02-20 01:13:29 18 /min [facility] Oxygen saturation in 2022-02-20 01:13:29 96 /min [facility] Arterial blood by Pulse oximetry Body height 2022-02-19 20:30:00 162.6 cm [facility] Body weight 2022-02-19 20:30:00 [facility]379 [facility] [facility] BMI 2022-02-19 20:30:00 30.04 kg/m2 [facility] Body temperature 2022-02-19 20:29:09 36.61 [facility] pulse rate 2021-12-16 13:21:49 87 /min [facility] blood pressure, 2021-12-16 13:21:49 67 mm[Hg] Leg[facility] diastolic Health blood pressure, 2021-12-16 13:21:49 132 mm[Hg] [facility] pulse rate 2020-11-25 14:31:56 70 /min [facility] blood pressure, 2020-11-25 14:31:56 74 mm[Hg] Legac [facility] diastolic Health blood pressure, 2020-11-25 14:31:56 113 mm[Hg] Legac [facility] systolic Health pulse rate 2020-11-25 13:39:38 70 /min [facility] blood pressure, 2020-11-25 13:39:38 74 mm[Hg] Legac [facility] diastolic Health blood pressure, 2020-11-25 13:39:38 113 mm[Hg] [facility] Procedures Procedure Date / Time Performing Source Performed Clinician CT CHEST WO CONTRAST ABDOMEN WO 2022-02-20 Cristóbal Ovalle CONTRAST PELVIS WO CONTRAST 01:47:08 [facility] ECG ED PRELIMINARY INTERPRETATION 2022-02-20 Cristóbal Ovalle 01:34:30 [facility] CBC WITH PLATELET AND DIFFERENTIAL 2022-02-19 Pa Manning [facility] 21:40:00 [facility] COMPREHENSIVE METABOLIC PANEL 2022-02-19 Alee Manning Ri thodist 21:40:00 [facility] HCG QUALITATIVE, SERUM SCREEN 2022-02-19 Alee Manning Ri [facility]ist 21:40:00 Hospital ESTIMATED GFR 2022-02-19 Alee Manning 21:40:00 [facility] ECG 12-LEAD 2022-02-19 Alee Manning 20:46:22 [facility] URINE CULTURE 2022-02-19 Alee Manning 20:34:00 [facility] URINALYSIS SCREEN AND MICROSCOPY, 2022-02-19 Eulalio Manning WITH REFLEX TO CULTURE 20:34:00 [facility] HEPATITIS B SURFACE ANTIGEN 2022-02-05 Eddie Farris Meth odist 15:30:00 [facility] HEPATITIS C ANTIBODY 2022-02-05 Eddie Farris 15:30:00 [facility] HIV 1/2 ANTIGEN/ANTIBODY, FOURTH 2022-02-05 Eddie Farris GENERATION, WITH REFLEXES 15:30:00 Hospit al HSV TYPE 1/2 COMBINED AB, IGM 2022-02-05 Eddie Farris Ri thodist 15:30:00 Hospital RPR WITH REFLEX TO TITER 2022-02-[address] 15:30:00 Hospital HEPATITIS C VIRUS (HCV), 2022-02-[address] QUANTITATIVE PCR 15:30:00 [facility] SURGICAL PATHOLOGY REQUEST 2021-12-26 Esthela Small Ri thodist 18:06:00 [facility] COLONOSCOPY 2021-12-26 Esthela Small [facility] 15:44:00 [facility] ESOPHAGOGASTRODUODENOSCOPY (EGD) 2021-12-26 Esthela Small [facility] 15:44:00 [facility] COVID-19 QUALITATIVE RT-PCR 2021-12-24 Esthela Small ethodist 12:41:00 [facility] THINPREP TIS AND HPV MRNA E6/E7 2021-12-18 Eddie Farris 18:34:00 [facility] ECG 12-LEAD 2021-11-28 Keith Carroll 15:26:34 [facility] TROPONIN T 2021-11-07 Zeyad Cohen 20:01:00 [facility] COVID-19 QUALITATIVE RT-PCR 2021-11-07 Zeyad Cohen 19:09:00 [facility] COVID-19 OMICRON VARIANT 2021-11-[address] QUALITATIVE RT-PCR 19:09:00 [facility] XR CHEST 2 VW 2021-11-07 Zeyad Cohen 18:51:38 [facility] ECG ED PRELIMINARY INTERPRETATION 2021-11-07 Karo Cohen 18:50:27 [facility] COMPREHENSIVE METABOLIC PANEL 2021-11-07 Zeyad Cohen Ri thodist 18:03:00 [facility] TROPONIN T 2021-11-07 Zeyad Cohen 18:03:00 [facility] CBC WITH PLATELET AND DIFFERENTIAL 2021-11-07 Ed Cohen 18:03:00 [facility] HCG QUALITATIVE, SERUM SCREEN 2021-11-07 Zeyad Cohen Ri thodist 18:03:00 [facility] ESTIMATED GFR 2021-11-07 Zeyad Cohen 18:03:00 [facility] ECG 12-LEAD 2021-11-07 Oghogho Eyitemi [facility] 17:57:16 [facility] FL UGI W OR WO KUB 2021-11-03 Esthela Smallist 15:16:30 Hospital HEPATITIS C VIRUS (HCV), 2021-11-03 Esthela Small QUANTITATIVE PCR 13:52:00 [facility] HEPATIC FUNCTION PANEL 2021-11-03 Esthela Small Method ist 13:52:00 [facility] XR CHEST 2 VW 2021-10-15 José Riderist 02:52:42 [facility] COMPREHENSIVE METABOLIC PANEL 2021-10-15 Mario Maher thodist 01:15:00 [facility] TROPONIN T 2021-10-15 Mario Maher 01:15:00 [facility] B NATRIURETIC PEPTIDE 2021-10-15 Mario Maherist 01:15:00 [facility] CBC WITH PLATELET AND DIFFERENTIAL 2021-10-15 Mera Maherist 01:15:00 [facility] PROTHROMBIN TIME WITH INR 2021-10-15 Mario Maher ist 01:15:00 [facility] PARTIAL THROMBOPLASTIN TIME (PTT) 2021-10-15 Mario Maher 01:15:00 [facility] ESTIMATED GFR 2021-10-15 Mario Maher 01:15:00 [facility] ECG 12-LEAD 2021-10-15 Mario Maher 00:33:[address] [facility] [address] ANGIOGRAM PE CHEST 2021-10-12 Trung Courtney 17:55:52 Hospital CBC WITH PLATELET AND DIFFERENTIAL 2021-10-12 Trung Courtney 15:36:00 [facility] COMPREHENSIVE METABOLIC PANEL 2021-10-12 Trung Courtney ethodist 15:36:00 Hospital TROPONIN T 2021-10-12 Trung Courtney 15:36:00 Hospital B NATRIURETIC PEPTIDE 2021-10-12 Trung Courtney 15:36:00 Hospital CREATINE KINASE, TOTAL (CPK) 2021-10-12 Trung Courtney thodist 15:36:00 Hospital ESTIMATED GFR 2021-10-12 Trung Courtney 15:36:00 Hospital ECG ED PRELIMINARY INTERPRETATION 2021-10-12 Trung Courtney 15:20:39 Hospital URINE CULTURE 2021-10-12 Rajinder Ordoñez 15:17:00 [facility] URINALYSIS SCREEN AND MICROSCOPY, 2021-10-12 Arslan Ordoñez WITH REFLEX TO CULTURE 15:17:00 [facility] HCG QUALITATIVE, URINE SCREEN 2021-10-12 Rajinder Ordoñez 15:17:00 [facility] ECG 12-LEAD 2021-10-12 Rajinder Ordoñez 14:48:50 [facility] NE AN ELECTIVE SUPRAGLOTTIC AIRWAY 2021-09-30 Ruddy Marie 12:10:00 Hospital DECOMPRESSION, ULNAR NERVE 2021-09-30 Rebecca Brownlee 12:06:00 [facility] COVID-19 QUALITATIVE RT-PCR 2021-09-26 Dulce Maria Pierre 14:23:00 [facility] PROTHROMBIN TIME WITH INR 2021-09-26 Antonio Pierre ist 14:23:00 [facility] PARTIAL THROMBOPLASTIN TIME (PTT) 2021-09-26 Keith Pierre 14:23:00 [facility] COMPREHENSIVE METABOLIC PANEL 2021-09-26 Me Gabby thodist 14:23:00 [facility] ESTIMATED GFR 2021-09-26 Rebecca Brownlee 14:23:00 [facility] HEMOGLOBIN A1C 2021-09-26 Rebecca Brownlee 14:23:00 [facility] CBC WITH PLATELET AND DIFFERENTIAL 2021-09-19 Lexie Esparza 07:10:00 Hospital THYROID STIMULATING HORMONE 2021-09-19 Peggy Esparza 07:10:00 Hospital XR ELBOW 3+ VW LEFT 2021-09-10 Rebecca Brownlee 15:28:[address] [facility] [address] ANGIOGRAM NECK W WO CONTRAST 2021-08-27 Brenda Retana 00:01:[address] [facility] [address] ANGIOGRAM HEAD W WO CONTRAST 2021-08-27 Brenda Retana 00:00:[address] [facility] [address] HEAD WO CONTRAST 2021-08-26 Brenda Retana 23:42:36 [facility] ECG ED PRELIMINARY INTERPRETATION 2021-08-26 Brenda Retana 23:22:45 [facility] CBC WITH PLATELET AND DIFFERENTIAL 2021-08-26 Willie Retana 21:57:00 [facility] COMPREHENSIVE METABOLIC PANEL 2021-08-26 Brenda Retana thodist 21:57:00 [facility] TROPONIN T 2021-08-26 Brenda Retana 21:57:00 [facility] B NATRIURETIC PEPTIDE 2021-08-26 Brenda Retana 21:57:00 [facility] HCG QUALITATIVE, SERUM SCREEN 2021-08-26 Brenda Retana Me thodist 21:57:00 [facility] ESTIMATED GFR 2021-08-26 Brenda Retana [facility] 21:57:00 [facility] ECG 12-LEAD 2021-08-26 Brenda Retana [facility] 21:42:16 [facility] URINE CULTURE 2021-08-06 Myles Martin [facility] 22:27:00 [facility] URINALYSIS SCREEN AND MICROSCOPY, 2021-08-06 Myles Martin Siist WITH REFLEX TO CULTURE 22:27:00 Hospital XR CHEST 2 VW 2021-08-06 Myles Martin [facility] 20:36:00 Hospital INFLUENZA ANTIGEN 2021-08-06 Susie Melton [facility] 20:10:00 [facility] RESPIRATORY PATHOGEN PANEL WITH 2021-08-06 Susie Melton COVID-19 RT-PCR 20:10:00 [facility] ECG ED PRELIMINARY INTERPRETATION 2021-08-06 Myles Martin Si [facility] 20:08:02 [facility] COMPREHENSIVE METABOLIC PANEL 2021-08-06 Susie Melton thodist 20:05:00 [facility] CBC WITH PLATELET AND DIFFERENTIAL 2021-08-06 Montserrat Melton [facility] 20:05:00 [facility] TROPONIN T 2021-08-06 Susie Melton [facility] 20:05:00 [facility] LIPASE LEVEL 2021-08-06 Susie Melton [facility] 20:05:00 [facility] ESTIMATED GFR 2021-08-06 Susie Melton [facility] 20:05:00 [facility] ECG 12-LEAD 2021-08-06 Susie Melton [facility] 19:55:29 [facility] TROPONIN T 2021-08-01 Brenda Retana [facility] 03:32:00 [facility] ECG ED PRELIMINARY INTERPRETATION 2021-08-01 Nelson Villagran i [facility] 02:37:45 [facility] CBC WITH PLATELET AND DIFFERENTIAL 2021-08-01 Willie Retana [facility] 00:35:00 [facility] COMPREHENSIVE METABOLIC PANEL 2021-08-01 Brenda Retana Ri thodist 00:35:00 [facility] TROPONIN T 2021-08-01 Brenda Retana 00:35:00 [facility] B NATRIURETIC PEPTIDE 2021-08-01 Brenda Retana 00:35:00 [facility] ESTIMATED GFR 2021-08-01 Brenda Retana 00:35:00 [facility] ECG 12-LEAD 2021-08-01 Brenda Retana 00:23:19 [facility] TROPONIN T 2021-07-30 Jaida Sales 21:35:00 Hospital ECG ED PRELIMINARY INTERPRETATION 2021-07-30 Myles Martin Si 19:53:48 Hospital XR CHEST 2 VW 2021-07-30 Myles Martinist 19:37:56 Hospital COMPREHENSIVE METABOLIC PANEL 2021-07-30 Jaida Sales 18:40:00 Hospital CBC WITH PLATELET AND DIFFERENTIAL 2021-07-30 Jaida Sales 18:40:00 Hospital TROPONIN T 2021-07-30 Jaida Sales 18:40:00 Hospital B NATRIURETIC PEPTIDE 2021-07-[address] 18:40:00 Hospital ESTIMATED GFR 2021-07-30 Jaida Sales 18:40:00 Hospital ECG 12-LEAD 2021-07-30 Jaida Sales 18:33:57 Hospital MAMMO BREAST SCREEN TOMOSYNTHESIS 2021-07-28 Shell Vargas [facility]isc[facility]alian BILATERAL 14:20:00 [facility] ECG ED PRELIMINARY INTERPRETATION 2021-07-01 Nelson Villagran iist 00:04:28 Hospital TROPONIN T 2021-06-30 Mario Maher 23:09:00 [facility] RESPIRATORY PATHOGEN PANEL WITH 2021-06-30 Mario Maher COVID-19 RT-PCR 21:09:00 [facility] XR CHEST 2 VW 2021-06-30 aMrio Maher 20:40:51 [facility] COMPREHENSIVE METABOLIC PANEL 2021-06-30 Mario Maher Ri thodist 20:06:00 [facility] TROPONIN T 2021-06-30 Mario Maher 20:06:00 [facility] B NATRIURETIC PEPTIDE 2021-06-30 Mario Maher 20:06:00 [facility] CBC WITH PLATELET AND DIFFERENTIAL 2021-06-30 Mera Maher 20:06:00 [facility] ESTIMATED GFR 2021-06-30 Mario Maher 20:06:00 [facility] ECG 12-LEAD 2021-06-30 Mario Maher 19:54:19 [facility] POC URINALYSIS DIPSTICK 2021-06-16 Eddie Farris Methodkyle t 18:20:00 Hospital THINPREP TIS PAP AND HPV MRNA 2021-06-16 Eddie Farris Me thodist E6/E7 REFLEX HPV 16,18/45 18:17:00 Hospit al URINALYSIS, COMPLETE, WITH REFLEX 2021-06-16 Eddie Farrisist TO CULTURE 17:55:00 [facility] XR SHOULDER 2+ VW RIGHT 2021-06-02 Roger Ling Methodkyle t 17:52:26 [facility] MRI LUMBAR SPINE WO CONTRAST 2021-05-09 Shell Vargas Met hodist 18:44:08 [facility] MRI CERVICAL SPINE WO CONTRAST 2021-05-05 Shell olivia ethodist 14:11:49 [facility] CT LUMBAR SPINE WO CONTRAST 2021-05-04 Liborio Herrera Met hodist 22:36:[address] [facility] [address] THORACIC SPINE WO CONTRAST 2021-05-04 Liborio henriquez ethodist 22:35:58 Hospital TROPONIN T 2021-04-13 Candelaria Lui 01:33:00 Hospital XR CHEST 2 VW 2021-04-12 Candelaria Lui 23:31:00 Hospital COMPREHENSIVE METABOLIC PANEL 2021-04-12 Candelaria Lui thodist 22:56:00 Hospital LIPASE LEVEL 2021-04-12 Candelaria Lui 22:56:00 Hospital HC COMPLETE BLD COUNT W/AUTO DIFF 2021-04-12 Candelaria Lui 22:56:00 Hospital TROPONIN T 2021-04-12 Candelaria Lui 22:56:00 Hospital ESTIMATED GFR 2021-04-12 Candelaria Lui 22:56:[address] RENAL STONE PROTOCOL 2021-04-12 Candelaria Lui t 22:36:21 Hospital ECG 12-LEAD 2021-04-12 Candelaria Lui 21:52:29 Hospital URINE CULTURE 2021-04-12 Candelaria Lui 21:52:00 [facility] URINALYSIS SCREEN AND MICROSCOPY, 2021-04-12 Candelaria Lui WITH REFLEX TO CULTURE 21:52:00 Hospital ECG ED PRELIMINARY INTERPRETATION 2021-04-12 Candelaria Lui 21:47:56 [facility] Plan of Care Planned Activity Planned Date Details Comments Source Future Scheduled 2024-09-11 [facility] 00:[facility]:00 malignant neoplasm of cervix (procedure) [code = 075793900] Future Scheduled 2024-09-11 [facility] 00:00:00 malignant neoplasm of cervix (procedure) [code = 391949528] Future Scheduled 2024-09-11 [facility] 00:00:00 malignant neoplasm of cervix (procedure) [code = 554341275] Future Scheduled 2024-09-11 [facility] 00:00:00 malignant neoplasm of cervix (procedure) [code = 854576850] Future Scheduled 2024-09-11 [facility] 00:00:00 malignant neoplasm of cervix (procedure) [code = 288684121] Future Scheduled 2024-09-11 [facility] 00:00:00 malignant neoplasm of cervix (procedure) [code = 820462731] Future Scheduled 2024-09-11 [facility] 00:00:00 malignant neoplasm of cervix (procedure) [code = 281197625] Future Scheduled 2024-09-11 [facility] 00:00:00 malignant neoplasm of cervix (procedure) [code = 178839813] Future Scheduled 2024-09-11 [facility] 00:00:00 malignant neoplasm of cervix (procedure) [code = 646671677] Future Scheduled 2024-09-11 [facility] 00:00:00 malignant neoplasm of cervix (procedure) [code = 720711789] Future Scheduled 2024-09-11 [facility] 00:00:00 malignant neoplasm of cervix (procedure) [code = 185971655] Future Scheduled 2024-09-11 Screening for [facility] Test 00:00:00 malignant neoplasm of cervix (procedure) [code = 654529865] Future Scheduled 2022-04-17 HEPATITIS B VACCINES Met [facility] Test 10:21:02 (1 of 3 - 3-dose series) [code = HEPATITIS B VACCINES (1 of 3 - 3-dose series)] Future Scheduled 2022-04-17 Pneumococcal Vaccine: [facility] Test 10:21:02 Pediatrics (0 to 5 Years) and At-Risk Patients (6 to 64 Years) (1 - PCV) [code = Pneumococcal Vaccine: Pediatrics (0 to 5 Years) and At-Risk Patients (6 to 64 Years) (1 - PCV)] Future Scheduled 2022-04-17 COLONOSCOPY SCREENING [facility] Test 10:21:02 [code = COLONOSCOPY SCREENING] Future Scheduled 2022-04-17 SHINGLES VACCINES (1 [facility] Test 10:21:02 of 2) [code = SHINGLES VACCINES (1 of 2)] Future Scheduled 2022-04-17 COVID-19 VACCINE (3 - [facility] Test 10:21:02 Booster for Pfizer series) [code = COVID-19 VACCINE (3 - Booster for Pfizer series)] Future Scheduled 2022-04-17 INFLUENZA VACCINE Method [facility] Test 10:21:02 [code = INFLUENZA VACCINE] Future Scheduled 2022-04-17 BREAST CANCER [facility] Test 10:21:02 SCREENING [code = BREAST CANCER SCREENING] Future Scheduled 2022-04-17 Screening for [facility] Test 10:21:02 malignant neoplasm of cervix (procedure) [code = 234995659] Future Scheduled 2022-04-15 HEPATITIS B VACCINES [facility] Test 14:24:02 (1 of 3 - 3-dose series) [code = HEPATITIS B VACCINES (1 of 3 - 3-dose series)] Future Scheduled 2022-04-15 Pneumococcal Vaccine: [facility] Test 14:24:02 Pediatrics (0 to 5 Years) and At-Risk Patients (6 to 64 Years) (1 - PCV) [code = Pneumococcal Vaccine: Pediatrics (0 to 5 Years) and At-Risk Patients (6 to 64 Years) (1 - PCV)] Future Scheduled 2022-04-15 COLONOSCOPY SCREENING [facility] Test 14:24:02 [code = COLONOSCOPY SCREENING] Future Scheduled 2022-04-15 SHINGLES VACCINES (1 [facility] Test 14:24:02 of 2) [code = SHINGLES VACCINES (1 of 2)] Future Scheduled 2022-04-15 COVID-19 VACCINE (3 - [facility] Test 14:24:02 Booster for Pfizer series) [code = COVID-19 VACCINE (3 - Booster for Pfizer series)] Future Scheduled 2022-04-15 INFLUENZA VACCINE Method [facility] Test 14:24:02 [code = INFLUENZA VACCINE] Future Scheduled 2022-04-15 BREAST CANCER [facility] Test 14:24:02 SCREENING [code = BREAST CANCER SCREENING] Future Scheduled 2022-04-15 Screening for [facility] Test 14:24:02 malignant neoplasm of cervix (procedure) [code = 937161255] Future Scheduled 2022-04-03 HEPATITIS B VACCINES [facility] Test 09:31:00 (1 of 3 - 3-dose series) [code = HEPATITIS B VACCINES (1 of 3 - 3-dose series)] Future Scheduled 2022-04-03 Pneumococcal Vaccine: [facility] Test 09:31:00 Pediatrics (0 to 5 Years) and At-Risk Patients (6 to 64 Years) (1 - PCV) [code = Pneumococcal Vaccine: Pediatrics (0 to 5 Years) and At-Risk Patients (6 to 64 Years) (1 - PCV)] Future Scheduled 2022-04-03 COLONOSCOPY SCREENING [facility] Test 09:31:00 [code = COLONOSCOPY SCREENING] Future Scheduled 2022-04-03 SHINGLES VACCINES (1 [facility] Test 09:31:00 of 2) [code = SHINGLES VACCINES (1 of 2)] Future Scheduled 2022-04-03 COVID-19 VACCINE (3 - [facility] Test 09:31:00 Booster for Pfizer series) [code = COVID-19 VACCINE (3 - Booster for Pfizer series)] Future Scheduled 2022-04-03 INFLUENZA VACCINE Method [facility] Test 09:31:00 [code = INFLUENZA VACCINE] Future Scheduled 2022-04-03 BREAST CANCER [facility] Test 09:31:00 SCREENING [code = BREAST CANCER SCREENING] Future Scheduled 2022-04-03 Screening for [facility] Test 09:31:00 malignant neoplasm of cervix (procedure) [code = 316799156] Future Scheduled 2022-03-05 HEPATITIS B VACCINES [facility] Test 00:08:56 (1 of 3 - 3-dose series) [code = HEPATITIS B VACCINES (1 of 3 - 3-dose series)] Future Scheduled 2022-03-05 Pneumococcal Vaccine: [facility] Test 00:08:56 Pediatrics (0 to 5 Years) and At-Risk Patients (6 to 64 Years) (1 - PCV) [code = Pneumococcal Vaccine: Pediatrics (0 to 5 Years) and At-Risk Patients (6 to 64 Years) (1 - PCV)] Future Scheduled 2022-03-05 COLONOSCOPY SCREENING [facility] Test 00:08:56 [code = COLONOSCOPY SCREENING] Future Scheduled 2022-03-05 SHINGLES VACCINES (1 [facility] Test 00:08:56 of 2) [code = SHINGLES VACCINES (1 of 2)] Future Scheduled 2022-03-05 COVID-19 VACCINE (3 - [facility] Test 00:08:56 Booster for Pfizer series) [code = COVID-19 VACCINE (3 - Booster for Pfizer series)] Future Scheduled 2022-03-05 INFLUENZA VACCINE Method [facility] Test 00:08:56 [code = INFLUENZA VACCINE] Future Scheduled 2022-03-05 BREAST CANCER [facility] Test 00:08:56 SCREENING [code = BREAST CANCER SCREENING] Future Scheduled 2022-03-05 Screening for [facility] Test 00:08:56 malignant neoplasm of cervix (procedure) [code = 682595349] Future Scheduled 2022-03-05 HEPATITIS B VACCINES [facility] Test 00:08:56 (1 of 3 - 3-dose series) [code = HEPATITIS B VACCINES (1 of 3 - 3-dose series)] Future Scheduled 2022-03-05 Pneumococcal Vaccine: [facility] Test 00:08:56 Pediatrics (0 to 5 Years) and At-Risk Patients (6 to 64 Years) (1 - PCV) [code = Pneumococcal Vaccine: Pediatrics (0 to 5 Years) and At-Risk Patients (6 to 64 Years) (1 - PCV)] Future Scheduled 2022-03-05 COLONOSCOPY SCREENING [facility] Test 00:08:56 [code = COLONOSCOPY SCREENING] Future Scheduled 2022-03-05 SHINGLES VACCINES (1 [facility] Test 00:08:56 of 2) [code = SHINGLES VACCINES (1 of 2)] Future Scheduled 2022-03-05 COVID-19 VACCINE (3 - [facility] Test 00:08:56 Booster for Pfizer series) [code = COVID-19 VACCINE (3 - Booster for Pfizer series)] Future Scheduled 2022-03-05 INFLUENZA VACCINE [facility] Test 00:08:56 [code = INFLUENZA VACCINE] Future Scheduled 2022-03-05 BREAST CANCER [facility] Test 00:08:56 SCREENING [code = BREAST CANCER SCREENING] Future Scheduled 2022-03-05 Screening for [facility] Test 00:08:56 malignant neoplasm of cervix (procedure) [code = 876462760] Future Scheduled 2022-02-22 HEPATITIS B VACCINES Met [facility] Test 22:17:15 (1 of 3 - 3-dose series) [code = HEPATITIS B VACCINES (1 of 3 - 3-dose series)] Future Scheduled 2022-02-22 Pneumococcal Vaccine: [facility] Test 22:17:15 Pediatrics (0 to 5 Years) and At-Risk Patients (6 to 64 Years) (1 - PCV) [code = Pneumococcal Vaccine: Pediatrics (0 to 5 Years) and At-Risk Patients (6 to 64 Years) (1 - PCV)] Future Scheduled 2022-02-22 COLONOSCOPY SCREENING [facility] Test 22:17:15 [code = COLONOSCOPY SCREENING] Future Scheduled 2022-02-22 SHINGLES VACCINES (1 [facility] Test 22:17:15 of 2) [code = SHINGLES VACCINES (1 of 2)] Future Scheduled 2022-02-22 COVID-19 VACCINE (3 - [facility] Test 22:17:15 Booster for Pfizer series) [code = COVID-19 VACCINE (3 - Booster for Pfizer series)] Future Scheduled 2022-02-22 INFLUENZA VACCINE Method [facility] Test 22:17:15 [code = INFLUENZA VACCINE] Future Scheduled 2022-02-22 BREAST CANCER [facility] Test 22:17:15 SCREENING [code = BREAST CANCER SCREENING] Future Scheduled 2022-02-22 Screening for [facility] Test 22:17:15 malignant neoplasm of cervix (procedure) [code = 132606763] Future Scheduled 2022-01-10 IMM Influenza Seasonal H [...] malignant neoplasm of colon (procedure) [code = 242808222] Future Scheduled 2019 [facility]:00 malignant neoplasm of colon (procedure) [code = 594380433] Future Scheduled 2019 [facility] 00:00:00 malignant neoplasm of colon (procedure) [code = 295713681] Future Scheduled 2019 [facility] 00:00:00 malignant neoplasm of colon (procedure) [code = 474579485] Future Scheduled 2019 [facility] 00:00:00 malignant neoplasm of colon (procedure) [code = 917757109] Future Scheduled 2019 [facility] 00:00:00 malignant neoplasm of colon (procedure) [code = 776479038] Future Scheduled 1975 Imm Pneumococcal 0-64 Maria [...] Department ID 2022-02-19 2022-02-19 Emergency Vasquez, 1.2.840.1 [id number] Methodi 18:09:00 20:16:[address] Cristó[address] [place] 3.430.2.7 Hosp shai .3.904006 l .8 2022-02-19 2022-02-19 Emergency Vasquez, 1.2.840.1 [id number] Methodi 18:09:00 20:16:[address] [place] 3.430.2.7 Hosp shai .3.213471 l .8 2022-02-12 2022-02-12 Orders Lopez, 1.2.840.1 [id number] Methodi 00:00:00 00:00:00 Only Maureen 59419.1.[address] 3.430.2.7 Hospit a .3.526254 l .8 2022-02-12 2022-02-12 Orders Lopez, 1.2.840.1 [id number] Methodi 00:00:00 00:00:00 Only Maureen 88709.1.[address] 3.430.2.7 Hospit a .3.609171 l .8 2022-02-11 2022-02-11 Orders Lopez, 1.2.840.1 [id number] Methodi 00:00:00 00:00:00 Only Maureen 90713.1.[address] 3.430.2.7 Hospit a .3.058792 l .8 2022-02-11 2022-02-11 Telephone Prasanth, 1.2.840.1 [id number] 2099 [id number] Methodi 00:00:00 00:00:00 Eddie Franco 73476.1.[address] 3.430.2.7 Hospit a .3.484334 l .8 2022-02-11 2022-02-11 Jaclyn Lopez, 1.2.840.1 [id number] 42700 96428 Methodi 00:00:00 00:00:00 Only Maureen 01096.1.[address] 3.430.2.7 Hospit a .3.962378 l .8 2022-02-11 2022-02-11 Telephone Prasanth, 1.2.840.1 [id number] 2099 303158 Methodi 00:00:00 00:00:00 Eddie Franco 76246.1.[address] 3.430.2.7 Hospit a .3.878572 l .8 2022-02-09 2022-02-09 Outpatient COH COH PDPFCCG ETQ COH 00:00:00 00:00:00 [id number] 2022-02-09 2022-02-09 Lamberto Farris, 1.2.840.1 [id number] 2099 512007 Methodi 00:00:00 00:00:00 Eddie Franco 05010.1.[address] 3.430.2.7 Hospit a .3.705284 l .8 2022-02-09 2022-02-09 Lamberto Farris, 1.2.840.1 [id number] 2099 721190 Methodi 00:00:00 00:00:00 Eddie Franco 71999.1.[address] 3.430.2.7 Hospit a .3.828874 l .8 2022-02-05 2022-02-05 Mak Farris 1.2.840.1 302418648 708546 9018 Methodi 10:50:00 10:55:00 Eddie Franco 28046.1.[address] 3.430.2.7 Hospit a .3.638220 l .8 2022-02-05 2022-02-05 Lab Prasanth, 1.2.840.1 086067004 705545 2459 Methodi 10:50:00 10:55:00 Eddie Franco 23489.1.[address] 3.430.2.7 Hospit a .3.681862 l .8 2022-02-05 2022-02-05 Office Prasanth, 1.2.840.1 619859412 382318 5466 Methodi 09:40:00 10:31:06 Visit Eddie Franco 75944.1.[address] 3.430.2.7 Hospit a .3.632159 l .8 2022-02-05 2022-02-05 Office Prasanth, 1.2.840.1 430773572 234771 4644 Methodi 09:40:00 10:31:06 Visit Eddie Franco 38724.1.[address] 3.430.2.7 Hospit a .3.773944 l .8 2022-02-05 2022-02-05 Travel 1.2.840.1 1.2.435.243 3685 102321 Methodi 00:00:00 00:00:[address] 3.430.2.7 0.2.7.3.698 Ho spita .3.024194 084.8 l .8 2022-02-05 2022-02-05 Refill Istre, 1.2.840.1 [id number] 681217 3054 Methodi 00:00:00 00:00:[address] [place] 3.430.2.7 Hospi ta .3.984676 l .8 2022-02-05 2022-02-05 Refill Istre, 1.2.840.1 423652010 293375 3006 Methodi 00:00:00 00:00:[address] Doe 3.430.2.7 Hospi ta .3.157717 l .8 2022-02-05 2022-02-05 Travel 1.2.840.1 1.2.123.932 4038 204354 Methodi 00:00:00 00:00:[address] 3.430.2.7 0.2.7.3.698 Ho spita .3.408530 084.8 l .8 2022-02-03 2022-02-03 Telephone Prasanth, 1.2.840.1 [id number] 2099 895775 Methodi 00:00:00 00:00:00 [address]antal [address] 3.430.2.7 Hospit a .3.453808 l .8 2022-02-03 2022-02-03 Telephone Prasanth, 1.2.840.1 [id number] 2099 365107 Methodi 00:00:00 00:00:00 [address] 375[address] 3.430.2.7 Hospit a .3.362492 l .8 2022-01-01 2022-01-01 Telephone Alessio, 1.2.840.1 [id number] 2099 219761 Methodi 00:00:00 00:00:[address] 3.430.2.7 Hospit a .3.795901 l .8 2022-01-01 2022-01-01 Telephone Alessio, 1.2.840.1 744735267 2100 701245 Methodi 00:00:00 00:00:[address] 3.430.2.7 Hospit a .3.624621 l .8 2021-12-26 2021-12-26 Surgery Small, 1.2.840.1 417629550 487157 9314 Methodi 11:00:00 11:45:[address] Hasan 3.430.2.7 Hospit a .3.813295 l .8 2021-12-26 2021-12-26 Surgery Small, 1.2.840.1 691320347 449666 6431 Methodi 11:00:00 11:45:[address] Hasan 3.430.2.7 Hospit a .3.747629 l .8 2021-12-26 2021-12-26 [facility], 1.2.840.1 010650994 13660 77424 Methodi 10:21:00 11:28:00 Encounter Proctor 63496.1.[address] Hasan 3.430.2.7 Hospit a .3.198931 l .8 2021-12-26 2021-12-26 [facility], 1.2.840.1 [id number] 54429 Methodi 10:21:00 11:28:00 Encounter Proctor 50357.1.[address] Hasan 3.430.2.7 Hospit a .3.309482 l .8 2021-12-26 2021-12-26 Anesthesia PennieHans mendez 1.2.840.1 [id number] Methodi 10:44:00 11:06:00 Event Edward [address]40.1.[address] 3.430.2.7 Hospit a .3.661917 l .8 2021-12-26 2021-12-26 Anesthesia PennieHans acharya 1.2.840.1 703431411 8327486087 Methodi 10:44:00 11:06:00 Event Edward [address]602.1.[address] 3.430.2.7 Hospit a .3.898477 l .8 2021-12-26 2021-12-26 Travel 1.2.840.1 1.2.522.415 8865 194497 Methodi 00:00:00 00:00:[address] 3.430.2.7 0.2.7.3.698 Ho spita .3.879177 084.8 l .8 2021-12-26 2021-12-26 Travel 1.2.840.1 1.2.628.083 8263 904462 Methodi 00:00:00 00:00:[address] 3.430.2.7 0.2.7.3.698 Ho spita .3.470829 084.8 l .8 2021-12-24 2021-12-24 Lab Staci, 1.2.840.1 732762682 698404 6312 Methodi 08:00:00 08:15:[address] Hasan 3.430.2.7 Hospit a .3.596712 l .8 2021-12-24 2021-12-24 Lab Staci, 1.2.840.1 101515109 234830 3902 Methodi 08:00:00 08:15:[address] Hasan 3.430.2.7 Hospit a .3.224450 l .8 2021-12-24 2021-12-24 Orders Tran, 1.2.840.1 674896185 224098 9264 Methodi 00:00:00 00:00:00 Only Kortney 80493.1.[address] 3.430.2.7 Hospit a .3.037210 l .8 2021-12-24 2021-12-24 Orders Marc, 1.2.840.1 227096445 562505 6192 Methodi 00:00:00 00:00:00 Only Kortney 90817.1.[address] 3.430.2.7 Hospit a .3.598999 l .8 2021-12-18 2021-12-18 Office Prasanth, 1.2.840.1 473807756 185566 6406 Methodi 11:00:00 13:02:01 Visit Eddie Franco 68868.1.[address] 3.430.2.7 Hospit a .3.040705 l .8 2021-12-18 2021-12-18 Office Prasanth, 1.2.840.1 238446727 166933 2967 Methodi 11:00:00 13:02:01 Visit Eddie Franco 22205.1.[address] 3.430.2.7 Hospit a .3.267946 l .8 2021-12-18 2021-12-18 Travel 1.2.840.1 1.2.804.771 3361 052450 Methodi 00:00:00 00:00:[address] 3.430.2.7 0.2.7.3.698 Ho spita .3.675256 084.8 l .8 2021-12-18 2021-12-18 Travel 1.2.840.1 1.2.916.270 4093 582906 Methodi 00:00:00 00:00:[address] 3.430.2.7 0.2.7.3.698 Ho spita .3.300080 084.8 l .8 2021-12-16 2021-12-16 Office Doug Estevez [facility] Encounter/ Legacy 00:00:00 00:00:00 Visit Joey Maggie Bijan [id number] Pending Sale To [facility] 201842 [facility] 2021-12-09 2021-12-09 Refill Leggett, 1.2.840.1 [id number] 2099385 Methodi 00:00:00 00:00:[address] 3.430.2.7 Hospit a .3.940005 l .8 2021-12-09 2021-12-09 Refill Leggett, 1.2.840.1 [id number] Methodi 00:00:00 00:00:[address] 3.430.2.7 Hospit a .3.745568 l .8 2021-11-28 2021-11-28 Office Carly, 1.2.840.1 069835308 384 1533268 Methodi 10:15:00 10:52:48 Visit Pimprapa 27804.1.[address] 3.430.2.7 Hospit a .3.507968 l .8 2021-11-28 2021-11-28 Office Carly, 1.2.840.1 635198673 189 2416188 Methodi 10:15:00 10:52:48 Visit Pimprapa 58343.1.[address] 3.430.2.7 Hospit a .3.374793 l .8 2021-11-28 2021-11-28 Travel 1.2.840.1 1.2.212.954 8647 121662 Methodi 00:00:00 00:00:[address] 3.430.2.7 0.2.7.3.698 Ho spita .3.044302 084.8 l .8 2021-11-28 2021-11-28 Travel 1.2.840.1 1.2.836.168 5944 207716 Methodi 00:00:00 00:00:[address] 3.430.2.7 0.2.7.3.698 Ho spita .3.288315 084.8 l .8 2021-11-17 2021-11-17 Office Davide, 1.2.840.1 317217198 507228 3888 Methodi 09:00:00 09:30:00 Visit Juana 49865.1.[address] Kelley 3.430.2.7 Hospit a .3.249446 l .8 2021-11-17 2021-11-17 Office Davide, 1.2.840.1 674595602 301244 2960 Methodi 09:00:00 09:30:00 Visit Juana 84864.1.[address] Kelley 3.430.2.7 Hospit a .3.773933 l .8 2021-11-17 2021-11-17 Travel 1.2.840.1 1.2.068.450 7564 969469 Methodi 00:00:00 00:00:[address] 3.430.2.7 0.2.7.3.698 Ho spita .3.770846 084.8 l .8 2021-11-17 2021-11-17 Travel 1.2.840.1 1.2.522.477 6359 736162 Methodi 00:00:00 00:00:[address] 3.430.2.7 0.2.7.3.698 Ho spita .3.256324 084.8 l .8 2021-11-14 2021-11-14 Orders Istre, 1.2.840.1 855192333 184137 1152 Methodi 00:00:00 00:00:00 Only Shell 25476.1.[address] Doe 3.430.2.7 Hospi ta .3.607000 l .8 2021-11-14 2021-11-14 Orders Istre, 1.2.840.1 456594327 994870 0688 Methodi 00:00:00 00:00:00 Only Shell 94153.1.[address] [place] 3.430.2.7 Hospi ta .3.296977 l .8 2021-11-11 2021-11-11 Telemedici Istre, 1.2.840.1 801839595 592 3745903 Methodi 10:00:00 10:40:34 ne Shell 60511.1.[address] [place] 3.430.2.7 Hospi ta .3.549860 l .8 2021-11-11 2021-11-11 Telemedici Istre, 1.2.840.1 028149041 335 4375981 Methodi 10:00:00 10:40:34 ne Shell 07310.1.[address] Doe 3.430.2.7 Hospi ta .3.899972 l .8 2021-11-07 2021-11-07 Emergency Noel, 1.2.840.1 285889281 2099 471725 Methodi 14:04:00 15:46:[address] Kirsten 3.430.2.7 Hospit a .3.973738 l .8 2021-11-07 2021-11-07 Emergency Noel, 1.2.840.1 862585469 2099 414279 Methodi 14:04:00 15:46:[address] Kirsten 3.430.2.7 Hospit a .3.424348 l .8 2021-11-07 2021-11-07 Travel 1.2.840.1 1.2.751.867 6329 434478 Methodi 00:00:00 00:00:[address] 3.430.2.7 0.2.7.3.698 Ho spita .3.908947 084.8 l .8 2021-11-07 2021-11-07 Travel 1.2.840.1 1.2.980.763 4533 493659 Methodi 00:00:00 00:00:[address] 3.430.2.7 0.2.7.3.698 Ho spita .3.005520 084.8 l .8 2021-11-03 2021-11-03 Lab Staci, 1.2.840.1 555428912 241883 7613 Methodi 08:25:00 08:30:[address] Hasan 3.430.2.7 Hospit a .3.986834 l .8 2021-11-03 2021-11-03 Lab Staci, 1.2.840.1 532153944 181722 8352 Methodi 08:25:00 08:30:[address] Hasan 3.430.2.7 Hospit a .3.062779 l .8 2021-11-03 2021-11-03 Telephone Alessio, 1.2.840.1 988675003 2100 134989 Methodi 00:00:00 00:00:[address] 3.430.2.7 Hospit a .3.882285 l .8 2021-11-03 2021-11-03 Travel 1.2.840.1 1.2.986.715 7228 400809 Methodi 00:00:00 00:00:[address] 3.430.2.7 0.2.7.3.698 Ho spita .3.722277 084.8 l .8 2021-11-03 2021-11-03 Outpatient SMALL, [facility] 0695100 623 [place] 00:00:00 00:00:00 PROCTOR [address] 2021-11-03 2021-11-03 Telephone Alessio, 1.2.840.1 [id number] 2099 410137 Methodi 00:00:00 00:00:[address] 3.430.2.7 Hospit a .3.973745 l .8 2021-11-03 2021-11-03 Travel 1.2.840.1 1.2.631.226 6343 962962 Methodi 00:00:00 00:00:[address] 3.430.2.7 0.2.7.3.698 Ho spita .3.521153 084.8 l .8 2021-10-29 2021-10-29 Documentat Judd, 1.2.840.1 905430675 2 883895553 Methodi 00:00:00 00:00:00 ion Amanda 73395.1.[address] 3.430.2.7 Hospit a .3.521753 l .8 2021-10-29 2021-10-29 Prep for Judd, 1.2.840.1 307867800 045 8186734 Methodi 00:00:00 00:00:00 Surgery Amanda 72841.1.[address] 3.430.2.7 Hospit a .3.790092 l .8 2021-10-29 2021-10-29 Telephone Binta, 1.2.840.1 [id number] 21 72562153 Methodi 00:00:00 00:00:[address] 3.430.2.7 Hospit a .3.351577 l .8 2021-10-29 2021-10-29 Travel 1.2.840.1 1.2.474.250 4743 781038 Methodi 00:00:00 00:00:[address] 3.430.2.7 0.2.7.3.698 Ho spita .3.105364 084.8 l .8 2021-10-29 2021-10-29 Documentat Binta, 1.2.840.1 936194426 2 368394266 Methodi 00:00:00 00:00:00 ion Amanda 44485.1.[address] 3.430.2.7 Hospit a .3.336834 l .8 2021-10-29 2021-10-29 Prep for Binta, 1.2.840.1 050826392 460 1679240 Methodi 00:00:00 00:00:00 Surgery Amanda 14235.1.[address] 3.430.2.7 Hospit a .3.895862 l .8 2021-10-29 2021-10-29 Telephone Binta, 1.2.840.1 128523410 21 17577392 Methodi 00:00:00 00:00:[address] 3.430.2.7 Hospit a .3.109947 l .8 2021-10-29 2021-10-29 Travel 1.2.840.1 1.2.254.220 3463 513453 Methodi 00:00:00 00:00:[address] 3.430.2.7 0.2.7.3.698 Ho spita .3.018306 084.8 l .8 2021-10-22 2021-10-22 Office Kem, 1.2.840.1 112029727 541 6007114 Methodi 09:40:00 10:17:00 Visit Rebecca Altagracia 32318.1.[address] 3.430.2.7 Hospit a .3.994589 l .8 2021-10-22 2021-10-22 Office Kem, 1.2.840.1 709406772 750 7074810 Methodi 09:40:00 10:17:00 Visit Rebecca Nguyen 29232.1.[address] 3.430.2.7 Hospit a .3.004706 l .8 2021-10-22 2021-10-22 Travel 1.2.840.1 1.2.088.043 1465 176737 Methodi 00:00:00 00:00:[address] 3.430.2.7 0.2.7.3.698 Ho spita .3.421646 084.8 l .8 2021-10-22 2021-10-22 Travel 1.2.840.1 1.2.621.221 7235 775054 Methodi 00:00:00 00:00:[address] 3.430.2.7 0.2.7.3.698 Ho spita .3.858326 084.8 l .8 2021-10-14 2021-10-15 Emergency Adry, 1.2.840.1 669223911 231 9348748 Methodi 21:57:00 00:06:00 José H 31539.1.[address] 3.430.2.7 Hospit a .3.321631 l .8 2021-10-14 2021-10-15 Emergency Adry, 1.2.840.1 089331380 754 3273223 Methodi 21:57:00 00:06:00 José H 42343.1.[address] 3.430.2.7 Hospit a .3.912749 l .8 2021-10-12 2021-10-12 Emergency Courtney, 1.2.840.1 176460426 2099 900867 Methodi 10:13:00 14:37:[address]ann [address]647.1.[address] 3.430.2.7 Hospit a .3.723336 l .8 2021-10-12 2021-10-12 Emergency Courtney, 1.2.840.1 451003169 2100 888086 Methodi 10:13:00 14:37:[address]ann 04561.1.[address] 3.430.2.7 Hospit a .3.884921 l .8 2021-10-09 2021-10-09 Telephone TitaJuan Carlos 1.2.840.1 069948337 5039889272 Methodi 00:00:00 00:00:[address] 3.430.2.7 Hospit a .3.053713 l .8 2021-10-09 2021-10-09 Telephone TitaJuan Carlos 1.2.840.1 120478729 9605788548 Methodi 00:00:00 00:00:[address] 3.430.2.7 Hospit a .3.835005 l .8 2021-10-09 2021-10-09 Orders Istre, 1.2.840.1 903993509 179506 7513 Methodi 00:00:00 00:00:00 Only Shell 71647.1.[address] [place] 3.430.2.7 Hospi ta .3.557037 l .8 2021-10-09 2021-10-09 Telephone TitaSajanir 1.2.840.1 803244448 3111855240 Methodi 00:00:00 00:00:[address] 3.430.2.7 Hospit a .3.345915 l .8 2021-10-09 2021-10-09 Telephone Tita Juan Carlos 1.2.840.1 646314756 6622998407 Methodi 00:00:00 00:00:[address] 3.430.2.7 Hospit a .3.527298 l .8 2021-10-09 2021-10-09 Orders Istre, 1.2.840.1 839115911 504694 9014 Methodi 00:00:00 00:00:00 Only Shell 06366.1.[address] Doe 3.430.2.7 Hospi ta .3.615768 l .8 2021-10-02 2021-10-02 Telephone russel, 1.2.840.1 711496460 969 6837723 Methodi 00:00:00 00:00:[address] 3.430.2.7 Hospit a .3.281472 l .8 2021-10-02 2021-10-02 [place] Lazarus, 1.2.840.1 543307326 116 6142418 Methodi 00:00:00 00:00:[address] 3.430.2.7 Hospit a .3.590087 l .8 2021-09-30 2021-09-30 Surgery Kem, 1.2.840.1 447224979 999 9631887 Methodi 07:15:00 09:02:00 Rebecca Nguyen 83577.1.[address] 3.430.2.7 Hospit a .3.471217 l .8 2021-09-30 2021-09-30 Surgery Kem, 1.2.840.1 050061725 271 6569920 Methodi 07:15:00 09:02:00 [address]ccawellington [address] 16487.[address] 3.430.2.7 Hospit a .3.336934 l .8 2021-09-30 2021-09-30 [facility] Kem 1.2.840.1 536949831 21 05908996 Methodi 06:02:00 08:50:00 Encounter Rebecca Altagracia 14035.1.[address] 3.430.2.7 Hospit a .3.906847 l .8 2021-09-30 2021-09-30 [facility] Kem 1.2.840.1 [id number] 21 [id number] Methodi 06:02:00 08:50:00 Encounter Rebeccawellington Nguyen 99307.1.[address] 3.430.2.7 Hospit a .3.843972 l .8 2021-09-30 2021-09-30 Anesthesia Tomas Mattson. 1.2.840.1 1045 45666 2972900588 Methodi 07:05:00 08:04:00 Event Sunita Marie 45545.1.[address] 3.430.2.7 Hospit a .3.842950 l .8 2021-09-30 2021-09-30 Anesthesia Tomas Mattson W. 1.2.840.1 1045 09486 4020658376 Methodi 07:05:00 08:04:00 Event Sunita Marie 92894.1.[address] 3.430.2.7 Hospit a .3.261457 l .8 2021-09-26 2021-09-26 Outpatient [facility] 2100 577108 [place] 00:00:00 00:00:[address] 2021-09-19 2021-09-19 Travel 1.2.840.1 1.2.807.939 5935 744460 Methodi 00:00:00 00:00:[address] 3.430.2.7 0.2.7.3.698 Ho spita .3.729837 084.8 l .8 2021-09-19 2021-09-19 Orders Marrero, 1.2.840.1 025737052 2099 459594 Methodi 00:00:00 00:00:00 Only Sharon 68411.1.[address] 3.430.2.7 Hospit a .3.015804 l .8 2021-09-19 2021-09-19 Orders Tavares, 1.2.840.1 742351367 606821 5313 Methodi 00:00:00 00:00:00 Only Peggy 10793.1.[address] 3.430.2.7 Hospit a .3.052003 l .8 2021-09-19 2021-09-19 Travel 1.2.840.1 1.2.085.966 6613 746579 Methodi 00:00:00 00:00:[address] 3.430.2.7 0.2.7.3.698 Ho spita .3.762948 084.8 l .8 2021-09-19 2021-09-19 Orders Marrero, 1.2.840.1 382311856 2099 205032 Methodi 00:00:00 00:00:00 Only Sharon 48255.1.[address] 3.430.2.7 Hospit a .3.095329 l .8 2021-09-19 2021-09-19 Orders Tavares, 1.2.840.1 687966424 951239 8555 Methodi 00:00:00 00:00:00 Only Peggy 02788.1.[address] 3.430.2.7 Hospit a .3.808587 l .8 2021-09-18 2021-09-18 Orders Propes, 1.2.840.1 774739198 771882 5052 Methodi 00:00:00 00:00:00 Only Pina 14786.1.[address] 3.430.2.7 Hospit a .3.232240 l .8 2021-09-18 2021-09-18 Orders Propes, 1.2.840.1 151523606 251207 0165 Methodi 00:00:00 00:00:00 Only Pina 21164.1.[address] 3.430.2.7 Hospit a .3.431025 l .8 2021-09-14 2021-09-14 Orders Tavares, 1.2.840.1 283301914 478232 7948 Methodi 00:00:00 00:00:00 Only Peggy 06026.1.[address] 3.430.2.7 Hospit a .3.984214 l .8 2021-09-14 2021-09-14 Orders Tavares, 1.2.840.1 154222516 542391 8908 Methodi 00:00:00 00:00:00 Only Peggy 34143.1.[address] 3.430.2.7 Hospit a .3.828082 l .8 2021-09-11 2021-09-11 Office Tavares, 1.2.840.1 048380942 449537 7682 Methodi 15:50:00 16:55:49 Visit Peggy 47778.1.[address] 3.430.2.7 Hospit a .3.812974 l .8 2021-09-11 2021-09-11 Office Tavares, 1.2.840.1 231303247 553027 9119 Methodi 15:50:00 16:55:49 Visit Peggy 69387.1.[address] 3.430.2.7 Hospit a .3.454748 l .8 2021-09-11 2021-09-11 Travel 1.2.840.1 1.2.307.365 9002 910422 Methodi 00:00:00 00:00:[address] 3.430.2.7 0.2.7.3.698 Ho spita .3.054916 084.8 l .8 2021-09-11 2021-09-11 Travel 1.2.840.1 1.2.540.606 1819 769360 Methodi 00:00:00 00:00:[address] 3.430.2.7 0.2.7.3.698 Ho spita .3.394288 084.8 l .8 2021-09-10 2021-09-10 Office Kem, 1.2.840.1 771378359 403 6916459 Methodi 10:40:00 11:03:05 Visit Rebecca Altagracia 45014.1.[address] 3.430.2.7 Hospit a .3.522837 l .8 2021-09-10 2021-09-10 Office Kem, 1.2.840.1 655923489 731 1155137 Methodi 10:40:00 11:03:05 Visit Rebecca Nguyen 27102.1.[address] 3.430.2.7 Hospit a .3.621598 l .8 2021-09-10 2021-09-10 Jaclyn Wyatt 1.2.840.1 071880323 2099 559753 Methodi 00:00:00 00:00:00 Only Jami 28608.1.[address] 3.430.2.7 Hospit a .3.387752 l .8 2021-09-10 2021-09-10 Jaclyn Wyatt 1.2.840.1 [id number] 2099 203016 Methodi 00:00:00 00:00:00 Only Jami 81196.1.[address] 3.430.2.7 Hospit a .3.393967 l .8 2021-09-10 2021-09-10 [facility] 2100 460015 [place] 00:00:00 00:00:00 REBECCA Tran Method i st 2021-08-31 2021-08-31 Refill Istre, 1.2.840.1 [id number] 945083 6029 Methodi 00:00:00 00:00:[address] Doe 3.430.2.7 Hospi ta .3.202080 l .8 2021-08-31 2021-08-31 Refill Prasanth, 1.2.840.1 [id number] 019806 0199 Methodi 00:00:00 00:00:00 Eddie Franco 33337.1.[address] 3.430.2.7 Hospit a .3.826919 l .8 2021-08-31 2021-08-31 Refill Istre, 1.2.840.1 619903689 393081 9852 Methodi 00:00:00 00:00:[address] Doe 3.430.2.7 Hospi ta .3.892672 l .8 2021-08-31 2021-08-31 Refill Prasanth, 1.2.840.1 [id number] 526361 0450 Methodi 00:00:00 00:00:00 Eddie Franco 42072.1.[address] 3.430.2.7 Hospit a .3.046780 l .8 2021-08-29 2021-08-29 Telephone Denisse, 1.2.840.1 [id number] 2100 577892 Methodi 00:00:00 00:00:00 Ivy Odom 97953.1.[address] 3.430.2.7 Hospit a .3.987329 l .8 2021-08-29 2021-08-29 Orders Istre, 1.2.840.1 466774237 832459 1742 Methodi 00:00:00 00:00:00 Only Shell 17491.1.[address] [place] 3.430.2.7 Hospi ta .3.670836 l .8 2021-08-29 2021-08-29 Telephone Denisse, 1.2.840.1 [id number] 2099 823381 Methodi 00:00:00 00:00:00 Ivy Ray 39446.1.[address] 3.430.2.7 Hospit a .3.449613 l .8 2021-08-29 2021-08-29 Orders Istre, 1.2.840.1 005070940 821156 5327 Methodi 00:00:00 00:00:00 Only Shell 63077.1.[address] [place] 3.430.2.7 Hospi ta .3.682757 l .8 2021-08-28 2021-08-28 Travel 1.2.840.1 1.2.509.287 4514 548156 Methodi 00:00:00 00:00:[address] 3.430.2.7 0.2.7.3.698 Ho spita .3.618178 084.8 l .8 2021-08-28 2021-08-28 Travel 1.2.840.1 1.2.676.198 1442 281079 Methodi 00:00:00 00:00:[address] 3.430.2.7 0.2.7.3.698 Ho spita .3.036141 084.8 l .8 2021-08-26 2021-08-26 Emergency Mazin, 1.2.840.1 [id number] 2099370 Methodi 16:36:00 20:08:[address] Adrienne 3.430.2.7 Hospit a .3.447620 l .8 2021-08-26 2021-08-26 Emergency Mazin, 1.2.840.1 [id number] 2099 738955 Methodi 16:36:00 20:08:[address] Adrienne 3.430.2.7 Hospit a .3.756223 l .8 2021-08-26 2021-08-26 Orders Colmenter, 1.2.840.1 [id number] 033 5900379 Methodi 00:00:00 00:00:00 Only Linda 86583.1.[address] 3.430.2.7 Hospit a .3.723535 l .8 2021-08-26 2021-08-26 Orders Colmenter, 1.2.840.1 234411240 976 2421091 Methodi 00:00:00 00:00:00 Only Linda 25515.1.[address] 3.430.2.7 Hospit a .3.481207 l .8 2021-08-21 2021-08-21 Orders Colmenter, 1.2.840.1 419236509 750 [id number] Methodi 00:00:00 00:00:00 Only Linda 75971.1.[address] 3.430.2.7 Hospit a .3.970192 l .8 2021-08-21 2021-08-21 Orders Colmenter, 1.2.840.1 [id number] 180 [id number] Methodi 00:00:00 00:00:00 Only Linda 10520.1.[address] 3.430.2.7 Hospit a .3.947314 l .8 2021-08-14 2021-08-14 Office Colmenter, 1.2.840.1 866067654 914 7675437 Methodi 11:00:00 13:05:34 Visit Linda 10525.1.[address] 3.430.2.7 Hospit a .3.851007 l .8 2021-08-14 2021-08-14 Office Colmenter, 1.2.840.1 445850873 002 0061223 Methodi 11:00:00 13:05:34 Visit Linda 83684.1.[address] 3.430.2.7 Hospit a .3.062326 l .8 2021-08-12 2021-08-12 Office Prasanth, 1.2.840.1 639338809 614570 3172 Methodi 10:00:00 11:08:57 Visit Eddie Franco 61536.1.[address] 3.430.2.7 Hospit a .3.605148 l .8 2021-08-12 2021-08-12 Office Prasanth, 1.2.840.1 172253921 153526 9350 Methodi 10:00:00 11:08:57 Visit Eddie Franco 28423.1.[address] 3.430.2.7 Hospit a .3.934111 l .8 2021-08-12 2021-08-12 Travel 1.2.840.1 1.2.763.363 9155 040106 Methodi 00:00:00 00:00:[address] 3.430.2.7 0.2.7.3.698 Ho spita .3.793278 084.8 l .8 2021-08-12 2021-08-12 Travel 1.2.840.1 1.2.171.150 5704 843545 Methodi 00:00:00 00:00:[address] 3.430.2.7 0.2.7.3.698 Ho spita .3.478079 084.8 l .8 2021-08-08 2021-08-08 Emergency EM Lynda, HCAKW SHIRLENE [id number] [facility] 12:48:00 19:41:00 Di 70 [facility] 2021-08-08 2021-08-08 Emergency [facility] [id number] [facility] 12:48:00 19:41:00 Di [id number] [facility] 2021-08-08 2021-08-08 Outpatient Lynda, SHIREEN RIOS [id number] [facility] 19:09:00 19:09:00 Di 00 [facility] 2021-08-08 2021-08-08 Transcribe Alicia, 1.2.840.1 [id number] 649 [id number] Methodi 00:00:00 00:00:00 Orders Shell 76967.1.[address] [place] 3.430.2.7 Hospi ta .3.882577 l .8 2021-08-08 2021-08-08 Transcribe Istre, 1.2.840.1 [id number] 676 [id number] Methodi 00:00:00 00:00:00 Orders Shell 01240.1.[address] [place] 3.430.2.7 Hospi ta .3.961802 l .8 2021-08-06 2021-08-06 Emergency Myles Martin 1.2.840.1 [id number] Methodi 14:54:00 18:50:[address] 3.430.2.7 Hospit a .3.010658 l .8 2021-08-06 2021-08-06 Emergency Myles Martin 1.2.840.1 [id number] Methodi 14:54:00 18:50:[address] 3.430.2.7 Hospit a .3.797620 l .8 2021-08-06 2021-08-06 Travel 1.2.840.1 1.2.947.475 1808 369626 Methodi 00:00:00 00:00:[address] 3.430.2.7 0.2.7.3.698 Ho spita .3.116231 084.8 l .8 2021-08-06 2021-08-06 Travel 1.2.840.1 1.2.932.815 3026 712284 Methodi 00:00:00 00:00:[address] 3.430.2.7 0.2.7.3.698 Ho spita .3.599728 084.8 l .8 2021-08-04 2021-08-04 Office Istre, 1.2.840.1 143482149 995219 9137 Methodi 14:20:00 15:33:19 Visit Shell 25957.1.[address] [place] 3.430.2.7 Hospi ta .3.114574 l .8 2021-08-04 2021-08-04 [facility] 1.2.840.1 [id number] 392017 4733 Methodi 14:20:00 15:33:19 Visit Shell 06425.1.[address] [place] 3.430.2.7 Hospi ta .3.064649 l .8 2021-08-04 2021-08-04 Travel 1.2.840.1 1.2.713.448 4851 211525 Methodi 00:00:00 00:00:[address] 3.430.2.7 0.2.7.3.698 Ho spita .3.579082 084.8 l .8 2021-08-04 2021-08-04 Travel 1.2.840.1 1.2.051.214 3605 876068 Methodi 00:00:00 00:00:[address] 3.430.2.7 0.2.7.3.698 Ho spita .3.997616 084.8 l .8 2021-07-31 2021-07-31 [facility] 1.2.840.1 [id number] Methodi 21:39:00 23:28:[address] 3.430.2.7 Hospit a .3.454353 l .8 2021-07-31 2021-07-31 [facility] 1.2.840.1 [id number] Methodi 21:39:00 23:28:[address] 3.430.2.7 Hospit a .3.690187 l .8 2021-07-31 2021-07-31 Travel 1.2.840.1 1.2.851.337 1450 700143 Methodi 00:00:00 00:00:[address] 3.430.2.7 0.2.7.3.698 Ho spita .3.085405 084.8 l .8 2021-07-31 2021-07-31 Travel 1.2.840.1 1.2.170.869 9659 290443 Methodi 00:00:00 00:00:[address] 3.430.2.7 0.2.7.3.698 Ho spita .3.544266 084.8 l .8 2021-07-30 2021-07-30 Emergency Myles Martin 1.2.840.1 [id number] Methodi 13:34:00 17:16:[address] 3.430.2.7 Hospit a .3.833100 l .8 2021-07-30 2021-07-30 Emergency Myles Martin 1.2.840.1 559978279 [id number] Methodi 13:34:00 17:16:[address] 3.430.2.7 Hospit a .3.552694 l .8 2021-07-30 2021-07-30 Telephone Istre, 1.2.840.1 [id number] 2099 070777 Methodi 00:00:00 00:00:[address] [place] 3.430.2.7 Hospi ta .3.350551 l .8 2021-07-30 2021-07-30 Telephone Istre, 1.2.840.1 083749017 2099504 Methodi 00:00:00 00:00:[address] [place] 3.430.2.7 Hospi ta .3.723299 l .8 2021-07-28 2021-07-28 [facility] [id number] 879 [place] 00:00:00 00:00:00 PEGGY Smith Method i st 2021-07-24 2021-07-24 Orders Jessica, 1.2.840.1 [id number] 68795 Methodi 00:00:00 00:00:00 Only Maureen 46377.1.[address] 3.430.2.7 Hospit a .3.979691 l .8 2021-07-24 2021-07-24 Orders Lopez, 1.2.840.1 676613834 13822 Methodi 00:00:00 00:00:00 Only Maureen 17105.1.[address] 3.430.2.7 Hospit a .3.585034 l .8 2021-07-23 2021-07-23 Orders Istre, 1.2.840.1 494434847 397317 2690 Methodi 00:00:00 00:00:00 Only Shell 68076.1.[address] [place] 3.430.2.7 Hospi ta .3.611370 l .8 2021-07-23 2021-07-23 Orders Istre, 1.2.840.1 578753174 686366 7411 Methodi 00:00:00 00:00:00 Only Shell 37585.1.[address] [place] 3.430.2.7 Hospi ta .3.216111 l .8 2021-07-21 2021-07-21 Orders Istre, 1.2.840.1 214971922 767422 4728 Methodi 00:00:00 00:00:00 Only Shell 36958.1.[address] Doe 3.430.2.7 Hospi ta .3.935003 l .8 2021-07-21 2021-07-21 Orders Istre, 1.2.840.1 494105549 447488 0408 Methodi 00:00:00 00:00:00 Only Shell 66324.1.[address] Doe 3.430.2.7 Hospi ta .3.829431 l .8 2021-07-15 2021-07-15 Telephone Leggett, 1.2.840.1 [id number] 21 97915199 Methodi 00:00:00 00:00:[address] 3.430.2.7 Hospit a .3.915801 l .8 2021-07-15 2021-07-15 Travel 1.2.840.1 1.2.830.814 7887 321713 Methodi 00:00:00 00:00:[address] 3.430.2.7 0.2.7.3.698 Ho spita .3.531151 084.8 l .8 2021-07-15 2021-07-15 Telephone Leggett, 1.2.840.1 [id number] 21 [id number] Methodi 00:00:00 00:00:[address] 3.430.2.7 Hospit a .3.514124 l .8 2021-07-15 2021-07-15 Travel 1.2.840.1 1.2.428.600 5029 075527 Methodi 00:00:00 00:00:[address] 3.430.2.7 0.2.7.3.698 Ho spita .3.549457 084.8 l .8 2021-07-10 2021-07-10 Treatment Shell Vargasrand 1.2.840.1 817509756 5473038556 Methodi 09:00:00 10:00:00 Peggy Esparza 96150.1.[address] Smooth [place] 3.430.2.7 H ospita .3.891425 l .8 2021-07-10 2021-07-10 Treatment Shell Vargasrand 1.2.840.1 055756796 2375560480 Methodi 09:00:00 10:00:00 Peggy Esparza 66197.1.[address] Smooth [place] 3.430.2.7 H ospita .3.295394 l .8 2021-07-10 2021-07-10 Plan of 1.2.840.1 429147850 726522 5741 Methodi 00:00:00 00:00:[address] Documentat 3.430.2.7 Hos margie ion .3.474573 l .8 2021-07-10 2021-07-10 Plan of 1.2.840.1 133121452 498654 3366 Methodi 00:00:00 00:00:[address] Documentat 3.430.2.7 Hos margie ion .3.709265 l .8 2021-07-09 2021-07-09 Travel 1.2.840.1 1.2.207.459 7224 122100 Methodi 00:00:00 00:00:[address] 3.430.2.7 0.2.7.3.698 Ho spita .3.756847 084.8 l .8 2021-07-09 2021-07-09 Orders Istre, 1.2.840.1 473224212 988682 1008 Methodi 00:00:00 00:00:00 Only Shell 36293.1.[address] Doe 3.430.2.7 Hospi ta .3.928363 l .8 2021-07-09 2021-07-09 Travel 1.2.840.1 1.2.315.853 0495 122100 Methodi 00:00:00 00:00:[address] 3.430.2.7 0.2.7.3.698 Ho spita .3.796311 084.8 l .8 2021-07-09 2021-07-09 Orders Istre, 1.2.840.1 736332531 086676 3707 Methodi 00:00:00 00:00:00 Only Shell 21084.1.[address] [place] 3.430.2.7 Hospi ta .3.981889 l .8 2021-07-03 2021-07-03 Travel 1.2.840.1 1.2.173.839 5576 356275 Methodi 00:00:00 00:00:[address] 3.430.2.7 0.2.7.3.698 Ho spita .3.763626 084.8 l .8 2021-07-03 2021-07-03 Travel 1.2.840.1 1.2.353.774 2883 875568 Methodi 00:00:00 00:00:[address] 3.430.2.7 0.2.7.3.698 Ho spita .3.321630 084.8 l .8 2021-06-30 2021-06-30 Emergency [facility] 1.2.840.1 [id number] [id number] Methodi 14:43:00 20:06:[address] 3.430.2.7 Hospit a .3.395081 l .8 2021-06-30 2021-06-30 Emergency [facility] 1.2.840.1 004042100 [id number] Methodi 14:43:00 20:06:[address] 3.430.2.7 Hospit a .3.933121 l .8 2021-06-19 2021-06-19 Orders [place], 1.2.840.1 304525637 659935 8028 Methodi 00:00:00 00:00:00 Only Susanne 04937.1.[address] 3.430.2.7 Hospit a .3.591628 l .8 2021-06-19 2021-06-19 Orders [place], 1.2.840.1 807242728 827736 1812 Methodi 00:00:00 00:00:00 Only Susanne 43434.1.[address] 3.430.2.7 Hospit a .3.001592 l .8 2021-06-18 2021-06-18 Orders Tran, 1.2.840.1 916665112 266335 0119 Methodi 00:00:00 00:00:00 Only Kortney 23305.1.[address] 3.430.2.7 Hospit a .3.297272 l .8 2021-06-18 2021-06-18 Telephone Jessica, 1.2.840.1 261032104 134 3844142 Methodi 00:00:00 00:00:[address] 3.430.2.7 Hospit a .3.094473 l .8 2021-06-18 2021-06-18 Orders Tran, 1.2.840.1 166782090 827197 2857 Methodi 00:00:00 00:00:00 Only Kortney 23024.1.[address] 3.430.2.7 Hospit a .3.944732 l .8 2021-06-18 2021-06-18 Telephone Jessica, 1.2.840.1 871809463 974 9965106 Methodi 00:00:00 00:00:[address] 3.430.2.7 Hospit a .3.977891 l .8 2021-06-16 2021-06-16 Office Prasanth, 1.2.840.1 735530344 140792 7034 Methodi 11:40:00 13:03:55 Visit Eddie Franco 12675.1.[address] 3.430.2.7 Hospit a .3.891064 l .8 2021-06-16 2021-06-16 Office Prasanth, 1.2.840.1 056704118 170465 9027 Methodi 11:40:00 13:03:55 Visit Eddie Franco 94610.1.[address] 3.430.2.7 Hospit a .3.921964 l .8 2021-06-16 2021-06-16 Travel 1.2.840.1 1.2.769.189 4551 411792 Methodi 00:00:00 00:00:[address] 3.430.2.7 0.2.7.3.698 Ho spita .3.109480 084.8 l .8 2021-06-16 2021-06-16 Travel 1.2.840.1 1.2.435.223 6292 512902 Methodi 00:00:00 00:00:[address] 3.430.2.7 0.2.7.3.698 Ho spita .3.077721 084.8 l .8 2021-06-03 2021-06-03 Refill [place], 1.2.840.1 479056337 531043 6721 Methodi 00:00:00 00:00:[address] 3.430.2.7 Hospit a .3.448960 l .8 2021-06-03 2021-06-03 Telephone Abreu, 1.2.840.1 014573290 2100 922039 Methodi 00:00:00 00:00:[address] 3.430.2.7 Hospit a .3.687706 l .8 2021-06-03 2021-06-03 [facility] 103994865 728518 3800 Methodi 00:00:00 00:00:[address] 3.430.2.7 Hospit a .3.438261 l .8 2021-06-03 2021-06-03 Telephone Abreu, 1.2.840.1 763903250 2099 160703 Methodi 00:00:00 00:00:[address] 3.430.2.7 Hospit a .3.982831 l .8 2021-06-02 2021-06-02 Emergency [facility], 1.2.840.1 [id number] 2 [id number] Methodi 10:56:00 13:23:00 Mario Crook 19839.1.1 606 s t 3.430.2.7 Hospit a .3.125826 l .8 2021-06-02 2021-06-02 Emergency [facility], 1.2.840.1 [id number] 2 [id number] Methodi 10:56:00 13:23:00 Mario Crook 77428.1.1 606 s t 3.430.2.7 Hospit a .3.962456 l .8 2021-06-02 2021-06-02 Orders Istre, 1.2.840.1 208446044 212513 7519 Methodi 00:00:00 00:00:00 Only Shell 57008.1.[address] [place] 3.430.2.7 Hospi ta .3.036020 l .8 2021-06-02 2021-06-02 Orders Istre, 1.2.840.1 439387711 798893 5661 Methodi 00:00:00 00:00:00 Only Shell 33201.1.[address] Doe 3.430.2.7 Hospi ta .3.992543 l .8 2021-05-30 2021-05-30 Treatment Shell Vargasd 1.2.840.1 911481478 2783617102 Methodi 10:00:00 11:00:00 Smooth [place] 61875.1.[address] 3.430.2.7 Hospit a .3.735566 l .8 2021-05-30 2021-05-30 Treatment Shell Vargasd 1.2.840.1 066538057 0186807119 Methodi 10:00:00 11:00:00 Smooth [place] [address]90.1.[address] 3.430.2.7 Hospit a .3.825437 l .8 2021-05-28 2021-05-28 Orders Istre, 1.2.840.1 520334629 413991 6352 Methodi 00:00:00 00:00:00 Only Shell 30578.1.[address] [place] 3.430.2.7 Hospi ta .3.522548 l .8 2021-05-28 2021-05-28 Orders Istre, 1.2.840.1 090312705 776944 7444 Methodi 00:00:00 00:00:00 Only Shell 16310.1.[address] Doe 3.430.2.7 Hospi ta .3.225296 l .8 2021-05-27 2021-05-27 Travel 1.2.840.1 1.2.249.631 2602 135941 Methodi 00:00:00 00:00:[address] 3.430.2.7 0.2.7.3.698 Ho spita .3.625903 084.8 l .8 2021-05-27 2021-05-27 Travel 1.2.840.1 1.2.765.876 6539 439665 Methodi 00:00:00 00:00:[address] 3.430.2.7 0.2.7.3.698 Ho spita .3.472083 084.8 l .8 2021-05-19 2021-05-19 Evaluation Shell Vargasrand 1.2.840.1 925498040 [id number] Methodi 11:00:00 12:00:00 Peggy Esparza 91798.1.[address] [place], Smooth 3.430.2.7 H ospita .3.406404 l .8 2021-05-19 2021-05-19 Evaluation Shaun Vargaschi Azar 1.2.840.1 980530721 9185837264 Methodi 11:00:00 12:00:00 Peggy Esparza 46075.1.[address] [place], Smooth 3.430.2.7 H ospita .3.239745 l .8 2021-05-19 2021-05-19 Plan of 1.2.840.1 686255056 148861 5391 Methodi 00:00:00 00:00:[address] Documentat 3.430.2.7 Hos margie ion .3.101698 l .8 2021-05-19 2021-05-19 Travel 1.2.840.1 1.2.079.627 9680 319878 Methodi 00:00:00 00:00:[address] 3.430.2.7 0.2.7.3.698 Ho spita .3.452574 084.8 l .8 2021-05-19 2021-05-19 Plan of 1.2.840.1 568850219 611633 9680 Methodi 00:00:00 00:00:[address] Documentat 3.430.2.7 Hos margie ion .3.240944 l .8 2021-05-19 2021-05-19 Travel 1.2.840.1 1.2.858.825 8895 226369 Methodi 00:00:00 00:00:[address] 3.430.2.7 0.2.7.3.698 Ho spita .3.370278 084.8 l .8 2021-05-09 2021-05-09 Travel 1.2.840.1 1.2.982.077 1913 633280 Methodi 00:00:00 00:00:[address] 3.430.2.7 0.2.7.3.698 Ho spita .3.940127 084.8 l .8 2021-05-09 2021-05-09 Travel 1.2.840.1 1.2.919.810 0048 736345 Methodi 00:00:00 00:00:[address] 3.430.2.7 0.2.7.3.698 Ho spita .3.327971 084.8 l .8 2021-05-09 2021-05-09 [facility] [id number] 977 [place] 00:00:00 00:00:00 PEGGY [address] 2021-05-06 2021-05-06 Orders Iscorwin, 1.2.840.1 956766301 859833 1139 Methodi 00:00:00 00:00:00 Only Shell 70109.1.[address] Doe 3.430.2.7 Hospi ta .3.420652 l .8 2021-05-06 2021-05-06 Orders Istre, 1.2.840.1 835765587 525933 7956 Methodi 00:00:00 00:00:00 Only Shell 60153.1.[address] Doe 3.430.2.7 Hospi ta .3.627037 l .8 2021-05-05 2021-05-05 [facility] [id number] 738 [place] 00:00:00 00:00:00 PEGGY 73Caleb Method i st 2021-05-04 2021-05-04 Emergency Oghogho, 1.2.840.1 676012858 873 0093179 Methodi 14:39:00 18:56:[address] 3.430.2.7 Hospit a .3.464139 l .8 2021-05-04 2021-05-04 Emergency Oghogho, 1.2.840.1 589018470 593 4341709 Methodi 14:39:00 18:56:[address] 3.430.2.7 Hospit a .3.132376 l .8 2021-05-04 2021-05-04 Travel 1.2.840.1 1.2.903.931 4402 726380 Methodi 00:00:00 00:00:[address] 3.430.2.7 0.2.7.3.698 Ho spita .3.361498 084.8 l .8 2021-05-04 2021-05-04 Travel 1.2.840.1 1.2.616.637 5724 401347 Methodi 00:00:00 00:00:[address] 3.430.2.7 0.2.7.3.698 Ho spita .3.228445 084.8 l .8 2021-05-02 2021-05-02 Outpatient JACKIE, [facility] 72616 9559 [place] 00:00:00 00:00:[address] [facility] 2021-04-30 2021-04-30 Travel 1.2.840.1 1.2.010.286 0026 796118 Methodi 00:00:00 00:00:[address] 3.430.2.7 0.2.7.3.698 Ho spita .3.752276 084.8 l .8 2021-04-30 2021-04-30 Travel 1.2.840.1 1.2.587.203 6173 068065 Methodi 00:00:00 00:00:[address] 3.430.2.7 0.2.7.3.698 Ho spita .3.623723 084.8 l .8 2021-04-28 2021-04-28 Orders Istre, 1.2.840.1 315181284 871264 0866 Methodi 00:00:00 00:00:00 Only Shell 97348.1.[address] [place] 3.430.2.7 Hospi ta .3.348175 l .8 2021-04-28 2021-04-28 Orders Istre, 1.2.840.1 026322679 874669 6568 Methodi 00:00:00 00:00:00 Only Shell 74488.1.[address] Doe 3.430.2.7 Hospi ta .3.005501 l .8 2021-04-17 2021-04-17 Office Istre, 1.2.840.1 287913601 185556 9454 Methodi 15:00:00 15:00:06 Visit Shell 72412.1.[address] [place] 3.430.2.7 Hospi ta .3.887537 l .8 2021-04-16 2021-04-16 Travel 1.2.840.1 1.2.496.110 9536 251644 Methodi 00:00:00 00:00:[address] 3.430.2.7 0.2.7.3.698 Ho spita .3.276991 084.8 l .8 2021-04-12 2021-04-12 Emergency Svach, 1.2.840.1 374047806 2099 186108 Methodi 15:47:00 22:48:00 Candelaria Nunes 77086.1.[address] 3.430.2.7 Hospit a .3.065259 l .8 2021-04-08 2021-04-08 Travel 1.2.840.1 1.2.958.590 7889 505020 Methodi 00:00:00 00:00:[address] 3.430.2.7 0.2.7.3.698 Ho spita .3.196147 084.8 l .8 2021-03-28 2021-03-28 Office Rj Mireles [facility] [id number] 1 [id number] [place] 08:30:00 09:30:00 Visit [facility] 2021-03-28 2021-03-28 Outpatient [facility] 96951 6844 [place] 00:00:00 00:00:[address] [facility] 2021-03-14 2021-03-14 Outpatient [facility] [id number] 1468 [place] 00:00:00 00:00:00 [facility] 2021-03-03 2021-03-03 Telephone Alicia, 1.2.840.1 [id number] 2099 293625 Methodi 11:20:00 11:48:51 Consult Shell 20375.1.[address] Doe 3.430.2.7 Hospi ta .3.977905 l .8 2021-02-27 2021-02-27 Travel 1.2.840.1 1.2.859.318 9829 801858 Methodi 00:00:00 00:00:[address] 3.430.2.7 0.2.7.3.698 Ho spita .3.149375 084.8 l .8 2021-02-19 2021-02-19 Outpatient CARLY, [facility] 2100 [id number] [place] 00:00:00 00:00:[address] 2021-02-17 2021-02-17 Outpatient [facility] [id number] 297 [place] 00:00:00 00:00:00 482 Method i 2021-02-17 2021-02-17 Outpatient STACI, [facility] [id number] 406 [place] 00:00:00 00:00:00 PROCTOR 706 Method i 2021-02-10 2021-02-10 Outpatient TAVARES, [facility] [id number] 790 [place] 00:00:00 00:00:00 PEGGY 856 Method i 2021-02-07 2021-02-07 Outpatient ALICIA, [facility] [id number] 637 [place] 00:00:00 00:00:00 SHELL 793 Method i 2021-01-30 2021-01-31 Outpatient IMELDA, [facility] 083 [id number] 174 [place] 00:00:00 00:00:00 KRISTY 451 Method i 2021-01-25 2021-01-25 Emergency KENA KILLIAN [facility] 064 [id number] 04375 [place] 00:00:00 00:00:00 190 Method i 2021-01-24 2021-01-24 Outpatient VEJPONGSA, [facility] 2100 [id number] [place] 00:00:00 00:00:00 PIMPRAPA 711 Metho di 2021-01-09 2021-01-09 Outpatient [facility] [id number] 646 [place] 00:00:00 00:00:00 247 Method i 2020-12-29 2020-12-29 Emergency VASQUEZ, [facility] 064 [id number] 98 [place] 00:00:00 00:00:00 CRISTÓBAL 225 Method i 2020-12-23 2020-12-23 Outpatient PRASANTH, [facility] [id number] 498 [place] 00:00:00 00:00:00 EDDIE 305 Method i 2020-12-11 2020-12-11 Emergency VASQUEZ, [facility] 064 [id number] 96 [place] 00:00:00 00:00:00 CRISTÓBAL 030 Method i 2020-12-08 2020-12-08 Emergency COURTNEY, [facility] 064 [id number] 26 [place] 00:00:00 00:00:00 TRUNG 699 Method i 2020-11-25 2020-11-26 Office Doug Estevez [facility] Encounter/ Legacy 00:00:00 00:00:00 Visit Symone Moreau474 0391 Communi 625406 [facility] 2020-11-25 2020-11-26 Office Doug Estevez [facility] Encounter/ Legacy 00:00:00 00:00:00 Visit Symone Moreau [id number] 1145 Communi [id number] [facility] 2020-11-18 2020-11-18 Outpatient SMALL, [facility] [id number] 074 [place] 00:00:00 00:00:00 PROCTOR 729 Method i 2020-11-02 2020-11-02 Emergency HALEY, [facility] [id number] 062 [place] 00:00:00 00:00:00 ROGER 241 Method i 2020-10-29 2020-10-29 Outpatient STACI, [facility] [id number] 857 [place] 00:00:00 00:00:00 PROCTOR 983 Method i 2020-10-25 2020-10-25 Outpatient VEJPONVIRYA, [facility] 2100 [id number] [place] 00:00:00 00:00:00 PIMPRAPA 573 Metho di 2020-10-24 2020-10-24 Outpatient VEJPONGSA, [facility] 2100 [id number] [place] 00:00:00 00:00:00 PIMPRAPA 921 Metho di 2020-10-18 2020-10-19 Emergency HOPE, [facility] 064 [id number] 58 [place] 00:00:00 00:00:00 TRUNG 724 Method i 2020-10-18 2020-10-18 Outpatient SMALL, [facility] [id number] 110 [place] 00:00:00 00:00:00 PROCTOR 224 Method i 2020-10-11 2020-10-11 Emergency COURTNEY, [facility] 06 [id number] 52 [place] 00:00:00 00:00:00 TRUNG 080 Method i 2020-10-09 2020-10-09 Outpatient PRASANTH, [facility] [id number] 499 [place] 00:00:00 00:00:00 EDDIE 020 Method i 2020-10-01 2020-10-01 Outpatient AHMED, [facility] [id number] 980 [place] 00:00:00 00:00:00 MOHAMMAD 768 Metho di 2020-09-26 2020-09-26 Outpatient SMALL, [facility] [id number] 765 [place] 00:00:00 00:00:00 PROCTOR [address] 2020-09-13 2020-09-13 Outpatient PRASANTH, [facility] [id number] 045 [place] 00:00:00 00:00:00 EDDIE 249 Method i 2020-09-11 2020-09-11 Outpatient VEJPONGSA, [facility] 2100 [id number] [place] 00:00:00 00:00:00 PIMPRAPA 754 Metho di 2020-08-23 2020-08-23 Outpatient AHMED, [facility] [id number] 605 [place] 00:00:00 00:00:00 MOHAMMAD 132 Metho di 2020-08-19 2020-08-21 Outpatient MELTON, [facility] [id number] 265 [place] 00:00:00 00:00:00 TRUNG 187 Method i 2020-07-31 2020-08-01 Outpatient ARREDONDO, [facility] 817 [id number] 975 [place] 00:00:00 00:00:00 RG 628 Met hodi 2020-07-16 2020-07-16 Emergency HOPE, [facility] 064 [id number] 18 [place] 00:00:00 00:00:00 TRUNG 600 Method i 2020-07-05 2020-07-05 Outpatient BROCK, [facility] 08612 [id number] [place] 00:00:00 00:00:[address] [facility] 2020-07-05 2020-07-05 Emergency VASQUEZ, [facility] 064 [id number] 62 [place] 00:00:00 00:00:00 CRISTÓBAL 088 Method i 2020-06-28 2020-06-28 Outpatient SMALL, [facility] [id number] 302 [place] 00:00:00 00:00:00 PROCTOR 174 Method i 2020-06-27 2020-06-27 Outpatient PRASANTH, [facility] [id number] 221 [place] 00:00:00 00:00:00 EDDIE [address] 2020-06-24 2020-06-24 Outpatient ISTRE, [facility] [id number] 8[address] [place] 00:00:00 00:00:00 SHELL 509 [facility] i 2020-06-19 2020-06-20 Emergency BUDDHIST, [facility] 064 [id number] 53 [place] 00:00:00 00:00:00 NADIM 685 [facility] i 2020-06-11 2020-06-11 Outpatient SMALL, [facility] [id number] [address] [place] 00:00:00 00:00:00 PROCTOR 214 [facility] 2020-06-11 2020-06-11 Outpatient SMALL, [facility] [id number] [place] 00:00:00 00:00:00 PROCTOR 956 Method i 2020-06-06 2020-06-06 Outpatient ISTRE, [facility] [id number] 806 [place] 00:00:00 00:00:00 SHELL 498 [facility] i 2020-06-03 2020-06-03 Outpatient ISTRE, [facility] [id number] [address] [place] 00:00:00 00:00:00 SHELL 193 [facility] i 2020-06-03 2020-06-03 Outpatient ISTRE, [facility] [id number] [address] [place] 00:00:00 00:00:00 SHELL 363 [facility] i 2020-05-26 2020-05-27 Outpatient SMALL, [facility] [id number] [place] 00:00:00 00:00:00 HAYLEE 766 Method i 2020-05-24 2020-05-24 Emergency JOSSY, [facility] 064 [id number] 24 [place] 00:00:00 00:00:00 BELKIS 964 Method i 2020-05-23 2020-05-23 Emergency FORMAN, [facility] 064 [id number] 56 [place] 00:00:00 00:00:00 TANIA 926 [facility] i 2020 2020 Outpatient ISTRE, [facility] [id number] 8[address] [place] 00:00:00 00:00:00 SHELL 882 [facility] i 2020 2020 Emergency KENDIG, [facility] 064 [id number] 65 [place] 00:00:00 00:00:00 KALIF 304 [facility] i 2020-05-20 2020-05-20 Outpatient ISCORWIN, [facility] [id number] 407 [place] 00:00:00 00:00:00 SHELL 217 Method i 2020-05-13 2020-05-13 Outpatient MIRELES, [facility] [id number] [place] 00:00:00 00:00:00 TRACILELICEO Healt h 2020-05-11 2020-05-11 Emergency HOPE, [facility] 064 [id number] 87 [place] 00:00:00 00:00:00 TRUNG 164 Method i 2020-05-07 2020-05-[address] [facility] [id number] [place] 07:48:18 07:48:18 Health 2020-04-15 2020-04-15 Emergency KENA KILLIAN [facility] [id number] [place] 00:00:00 00:00:00 597 Method i 2020-04-01 2020-04-01 Emergency KI, [facility] 064 [id number] 10 [place] 00:00:00 00:00:00 KALIF 631 Method i 2020-03-23 2020-03-24 Inpatient SEPTIMUS, [facility] [id number] [place] 00:00:00 00:00:00 STEPHY 252 [facility] i 2020-03-23 2020-03-23 Emergency HOPE, [facility] 064 [id number] 79 [place] 00:00:00 00:00:00 TRUNG 603 Method i 2020-03-20 2020-03-20 Emergency ALTAGRACIA VILLASENOR [facility] 064 [id number] [place] 00:00:00 00:00:00 875 Method i 2020-02-29 2020-03-01 Emergency DE CRANDALL, [facility] 064 [id number] [place] 00:00:00 00:00:00 EMY 731 Me thodi 2020-02-05 2020-02-06 Emergency NORSALTY, [facility] [id number] 4915 [place] 00:00:00 00:00:00 KEM 185 Meth john 2020-02-03 2020-02-03 Emergency DE CRANDALL, [facility]4 [id number] 0922 [place] 00:00:00 00:00:00 EMY 451 Me thodi 2019-12-20 2019-12-21 Emergency NORJAREDKY, [facility] 064 [id number] [place] 00:00:00 00:00:00 KEM 640 Meth john 2019-12-14 2019-12-14 Emergency KI, [facility] 064 [id number] 06 [place] 00:00:00 00:00:00 KALIF 126 Method i 2019-12-11 2019-12-11 Emergency HOPE, [place] [id number] 68 [place] 00:00:00 00:00:00 TRUNG 349 Method i 2019-12-08 2019-12-08 Emergency WINGCELESTE, [place] [id number] [place] 00:00:00 00:00:00 ISAC 449 Ri thodi 2019-11-24 2019-11-[address] [facility] [id number] [place] 00:00:00 00:00:00 [facility] 2019-11-21 2019-11-21 Emergency NELSON VILLAGRAN [facility] [id number] [place] 00:00:00 00:00:00 015 Method i 2019-11-14 2019-11-[address] [facility] [id number] [place] 06:55:06 06:55:06 Health 2019-11-13 2019-11-[address] [facility] [id number] [place] 00:00:00 00:00:00 Health 2019-11-10 2019-11-11 Emergency HOPE, [place] [id number] 84 [place] 00:00:00 00:00:00 TRUNG [place] [facility] 2019-11-07 2019-11-[address] [facility] [id number] [place] 14:24:03 14:24:03 Health 2019-11-07 2019-11-[address] [facility] [id number] [place] 12:22:44 12:22:44 Health 2019-11-07 2019-11-[address] [facility] [id number] [place] 00:00:00 00:00:00 Health 2019-11-07 2019-11-[address] [facility] [id number] [place] 00:00:00 00:00:00 Health 2019-10-30 2019-10-[address] [facility] [id number] [place] 11:49:58 11:49:58 Health 2019-10-30 2019-10-[address] [facility] [id number] [place] 00:00:00 00:00:00 Health 2019-10-12 2019-10-[address] [facility] [id number] [place] 00:00:00 00:00:00 Health 2019-10-10 2019-10-[address] [facility] [id number] [place] 08:15:33 08:15:33 Health 2019-10-09 2019-10-[address] [facility] [id number] [place] 00:00:00 00:00:00 Health 2019-09-25 2019-09-[address] [facility] [id number] [place] 00:00:00 00:00:00 Health 2019-09-19 2019-09-[address] [facility] [id number] [place] 15:17:15 15:17:15 Health 2019-09-12 2019-09-[address] [facility] [id number] [place] 09:33:27 09:33:27 Health 2019-09-12 2019-09-[address] [facility] [id number] [place] 08:35:47 08:35:47 Health 2019-09-12 2019-09-[address] [facility] [id number] 00:00:00 00:00:00 2019-09-09 2019-09-09 Emergency [facility] [id number] [place] 00:00:00 00:00:00 TRUNG [address] 2019-08-25 2019-08-[address] [facility] [id number] 06:54:32 06:54:32 Health 2019-08-24 2019-08-[address] [facility] [id number] [place] 00:00:00 00:00:00 2019-08-23 2019-08-[address] [facility] [id number] 00:00:00 00:00:00 Health 2019-08-05 2019-08-05 Emergency [facility] 064 [id number] [place] 00:00:00 00:00:00 OTILIO, [address] 2019-08-03 2019-08-03 Emergency [facility] [id number] [place] 00:00:00 00:00:[address] 2019-07-24 2019-07-[address] [facility] [id number] 08:35:14 08:35:14 Health 2019-06-21 2019-06-[address] [facility] [id number] [place] 00:00:00 00:00:00 Health 2019-06-15 2019-06-16 Emergency [facility] 06 [id number] [place] 00:00:00 00:00:00 [facility] 2019-06-15 2019-06-15 Emergency [facility] [id number] 14:03:00 14:03:00 [facility] 2019-06-14 2019-06-[address] [facility] [id number] 00:00:00 00:00:00 [facility] 2019-06-08 2019-06-[address] [facility] [id number] 13:49:26 13:49:26 [facility] 2019-06-08 2019-06-[address] [facility] [id number] 13:11:00 13:11:00 [facility] 2019-06-08 2019-06-[address] [facility] [id number] 00:00:00 00:00:00 [facility] 2019-06-07 2019-06-[address] [facility] [id number] 12:06:12 12:06:12 [facility] 2019-06-07 2019-06-07 Emergency [facility] [id number] 10:57:48 10:57:48 Health 2019-03-15 2019-03-[address] [facility] [id number] [place] 14:00:36 14:00:36 [facility] 2019-03-15 2019-03-[address] [facility] [id number] 12:20:09 12:20:09 [facility] 2019-03-15 2019-03-[address] [facility] [id number] 00:00:00 00:00:00 [facility] 2019-01-25 2019-01-[address] [facility] [id number] 10:20:47 10:20:47 Health 2019-01-13 2019-01-[address] [facility] [id number] [place] 10:25:55 10:25:55 [facility] 2019-01-03 2019-01-[address] [facility] [id number] [place] 10:33:43 10:33:43 Health 2019-01-03 2019-01-[address] [facility] [id number] [place] 08:40:50 08:40:50 Health 2019-01-03 2019-01-[address] [facility] [id number] [place] 07:58:31 07:58:31 Health 2019-01-03 2019-01-[address] [facility] [id number] [place] 00:00:00 00:00:00 [facility] 2018-12-29 2018-12-[address] [facility] [id number] 00:00:00 00:00:00 Health 2018-12-27 2018-12-[address] [facility] [id number] 00:00:00 00:00:00 Health 2018-12-26 2018-12-[address] [facility] [id number] [place] 16:37:58 16:37:58 Health 2018-12-09 2018-12-[address] [facility] [id number] [place] 16:51:56 16:51:56 Health 2018-12-09 2018-12-[address] [facility] [id number] [place] 14:15:31 14:15:31 Health 2018-12-09 2018-12-[address] [facility] [id number] 00:00:00 00:00:00 [facility] 2018-11-26 2018-11-26 Emergency [facility] [id number] 16:08:40 16:08:40 [facility] 2018-01-17 2018-01-17 Outpatient E MYRNA CEDENO [facility] [id number] [place] 10:49:00 12:30:00 [facility] 2017-12-28 2017-12-28 Outpatient E MILES [facility] [id number] [place] 10:12:00 12:25:00 [facility] 2017-12-20 2017-12-20 Outpatient E MYRNA CEDENO [facility] [id number] [place] 23:13:00 23:50:00 [facility] 2017-10-15 2017-10-15 Outpatient E SHEIKH [facility] [id number] [place] 09:57:00 11:15:00 [facility] Results Test Description Test Time Test Comments Results Result Comments Source ECG 12 lead 2022-03-24 04:27:49 Test Item Value Reference Range Interpretation Comme nts Ventricular rate (test code = 253) Atrial rate (test code = 255) NE interval (test code = 266) QRSD interval [...] of 28-NOV-2021 10:26,-No significant change was found- [address]2022-12-13 04:27:49 Test Item Value Reference Range Interpretation Comments Ventricular rate (test code = 253) Atrial rate (test code = 255) NE interval (test code = 266) QRSD interval [...] of 28-NOV-2021 10:26,-No significant change was found- [address]2022-12-13 04:27:49 Test Item Value Reference Range Interpretation Comments Ventricular rate (test code = 253) Atrial rate (test code = 255) NE interval (test code = 266) QRSD interval (test code = 260) QT interval (test code = 264) QTC interval (test code = 265) P axis 1 (test code = 267) QRS axis 1 (test code = 268) T wave axis (test code = 270) EKG impression (test Normal sinus rhythm code = 273) with sinus arrhythmia-Normal ECG-In automated comparison with ECG of 28-NOV-2021 10:,-No significant change was found- [facility]2022-11-10 23:39:00 Test Item Value Reference Range Interpretation Comments Urine culture (test SEE COMMENT Bacteriu brandon screen code = 1047669) negative. [facility]2022-11-10 23:39:00 Test Item Value Reference Range Interpretation Comments Urine culture (test SEE COMMENT Bacteriu brandon screen code = 5577138) negative. [facility]2022-11-10 23:39:00 Test Item Value Reference Range Interpretation Comments Urine culture (test SEE COMMENT Bacteriu brandon screen code = 3995612) negative. [facility] [id number] 23:39:00 Test Item Value Reference Range Interpretation Comments Urine culture (test SEE COMMENT Bacteriu brandon screen code = 0272068) negative. [facility] [id number] 23:39:00 Test Item Value Reference Range Interpretation Comments Urine culture (test SEE COMMENT Bacteriu brandon screen code = 8995547) negative. [facility] [id number] 23:39:00 Test Item Value Reference Range Interpretation Comments Urine culture (test SEE COMMENT Bacteriu brandon screen code = 8458061) negative. [facility] B surface [id number] 22:17:00 Test Item Value Reference Range Interpretation Comments Hepatitis B surface NON-REACTIVE NON-REACTIVE Ag (test code = 5196-1) RAC (test code = RAC) Performing Organization Information: Site ID: RGA Name: [facility] Lab Address: [address] [place] [address] Director: Rajinder Grant [facility] with reflex to [id number] 22:17:00 Test Item Value Reference Range Interpretation Comments RPR (test code = NON-REACTIVE NON-REACTIVE 63425-7) RAC (test code = Performing Organization RAC) Information: Site ID: RGA Name: [facility] Lab Address: [address] [place] [address] Director: Rajinder Grant [facility] C virus (HCV), quantitative [id number] 22:17:00 Test Item Value Reference Interpretation Comments Range HCV RNA, <15 NOT DETECTED NOT DETECTED quantitative PCR IU/mL (test code = 30785-0) HCV viral log <1.18 NOT DETECTED NOT DETECTED This bhupendra t was (test code = Log IU/mL performed using 96589-2) Real-Time Polym erase ChainReaction. Reportable Rang e: 15 IU/mL to 100,00 0,000 IU/mL(1.18 Log IU/mL to 8.00 Log IU/ mL). The analytical performance characteristics of thisassay have been determined by [employer]. Th e modifications h ave not been cleare d or approved bythe FDA. This assay has been validated pursu ant to the CLIA regulations and is used for clinic al purposes. For more information on this test, go to:http://educa dylon. [employer] /faq/PZJ93h5(Th is link is being provided for informational/e ducat ional purposes only.) RAC (test code = Performing RAC) Organization Information: Site ID: IG Name: [facility] Address: [address] [place] [address] Director: Dr. Rajinder Grant [facility] Hospital[facility] C [id number] 22:17:00 Test Item Value Reference Interpretation Comments Range Hepatitis C Ab (test REACTIVE NON-REACTIVE A code = 29894-3) Signal/cutoff (test >11.00 See_Comment H Based o n this code = 91735-3) result, the sample will be testedf or [...] RAC) Organization Information: Site ID: RGA Name: [facility] Address: [address] [place] [address] Director: Rajinder Grant Lab Interpretation Abnormal (test code = 49002-3) [facility] Ab, [id number] 22:17:00 Test Item Value Reference Interpretation Comments Range HSV 1 IgM NEGATIVE (test code = 59013-7) HSV 2 IgM NEGATIVE REFERENCE RANG E: NEGATIVE HSV (test IgM is detectab le in serum code = from >90% of [facility] [address]87[address]-3) primary HSV inf ection. However, HSV Ig [...] performancechar acteristics have been deter mined by [facility].It has not been cleared or appr luis by FDA. This assay hasb een validated pursuant to the CLIA regulations and isused for clinical purpos es. RAC (test Performing code = Organization RAC) Information: Site ID: EZ Name: [facility], Address: [address] [place] [address] Director: Crista Camacho MD,PhD,BARI [facility] HospitalHIV 1/2 antigen/antibody, fourth generation, with reflexes 2022-02-11 22:17:00 Test Item Value Reference Range Interpretation Comments HIV NON-REACTIVE NON-REACTIVE HIV-1 antigen a nd antigen/ant HIV-1/HIV-2 ant ibodies ibody 4th were notdetecte d. There gen (test is no laborator y evidence code = of HIVinfection . PLEASE 69713-0) NOTE: This info rmation has been disclo [...] ad ditional information ple ase refer tohttp://educat ion.[employer].easyOwn.it/ faq/HEK903 (This link is b eing provided for informational/e ducational purposes only.) The performance of this assay has not been clinicallyvalid ated in patients less t lagun[place] 2 years old. RAC (test Performing code = RAC) Organization Information: Site ID: RGA [facility] Address: [address] [place] [address] Director: Rajinder Grant [facility] HospitalHSV 1 and 2 specific Ab [id number] 22:17:00 Test Item Value Reference Interpretation Comments [...] ease refer to http://educatio nReza tDiagnostics.co m/faq/ UTB026 (This li nk is being provided for informational/e ducati onal purposes o nly.) RAC (test code = Performing RAC) Organization Information: Site ID: IG Name: [facility] Address: [address] [place] [address] Director: Dr. Rajinder Grant Lab Interpretation Abnormal (test code = 19113-5) [facility] HospitalHethe [facility] centertis B surface [id number] 22:17:00 Test Item Value Reference Range Interpretation Comments Hepatitis B surface NON-REACTIVE NON-REACTIVE Ag (test code = 5196-1) RAC (test code = RAC) Performing Organization Information: Site ID: RGA [facility]: [facility] Address: [address] [place] [address] Director: Rajinder Grant [facility] HospitalRPR with reflex to [id number] 22:17:00 Test Item Value Reference Range Interpretation Comments RPR (test code = NON-REACTIVE NON-REACTIVE 13326-1) RAC (test code = Performing Organization RAC) Information: Site ID: RGA [facility] Address: [address] [place] [address] Director: Rajinder Grant [facility] C virus (HCV), quantitative [id number] 22:17:00 Test Item Value Reference Interpretation Comments Range HCV RNA, <15 NOT DETECTED NOT DETECTED quantitative PCR IU/mL (test code = 69479-7) HCV viral log <1.18 NOT DETECTED NOT DETECTED This bhupendra t was (test code = Log IU/mL performed using 14894-7) Real-Time Polym erase ChainReaction. Reportable Rang e: 15 IU/mL to 100,00 0,000 IU/mL(1.18 Log IU/mL to 8.00 Log IU/ mL). The analytical performance characteristics of thisassay have been determined by [employer]. Th e modifications h ave not been cleare d or approved bythe FDA. This assay has been validated pursu ant to the CLIA regulations and is used for clinic al purposes. For m ore information on this test, go to:http://Fast [employer]. [employer] /faq/SVW90k3( is link is being provided for informational/e ducat ional purposes only.) RAC (test code = Performing RAC) Organization Information: Site ID: IG Name: [facility] Address: [address] [place] [address] Director: Dr. Rajinder Grant [facility] HospitalHepatitis C [id number] 22:17:00 Test Item Value Reference Interpretation Comments Range Hepatitis C Ab (test REACTIVE NON-REACTIVE A code = 28783-3) Signal/cutoff (test >11.00 See_Comment H Based o n this code = 69576-7) result, the sample will be testedf or [...] RAC) Organization Information: Site ID: RGA [facility]: [facility] Lab Address: [address] [place] [address] Director: Rajinder Grant Lab Interpretation Abnormal (test code = 68110-3) [facility] HospitalHSV type 1/2 combined Ab, [id number] 22:17:00 Test Item Value Reference Interpretation Comments Range HSV 1 IgM NEGATIVE (test code = 60769-1) HSV 2 IgM NEGATIVE REFERENCE RANG E: NEGATIVE HSV (test IgM is detectab le in serum code = from >90% of [place] tracey 32290-0) primary HSV inf ection. However, HSV Ig [...] performancechar acteristics have been deter mined by [facility].It has not been cleared or appr luis by FDA. This assay hasb een validated pursuant to the CLIA regulations and isused for clinical purpos es. RAC (test Performing code = Organization RAC) Information: Site ID: EZ Name: [facility], Address: [address] [place] [address] Director: Crista Camacho MD,PhD,BARI [facility]2 antigen/antibody, fourth generation, with reflexes 2022-02-11 22:17:00 Test Item Value Reference Range Interpretation Comments HIV NON-REACTIVE NON-REACTIVE HIV-1 antigen a nd antigen/ant HIV-1/HIV-2 ant ibodies ibody 4th were notdetecte d. There gen (test is no laborator y evidence code = of HIVinfection . PLEASE 93693-6) NOTE: This info rmation has been disclo [...] ad ditional information ple ase refer tohttp://educat ion.[employer]/ faq/RQA210 (This link is b eing provided for informational/e ducational purposes only.) The performance of this assay has not been clinicallyvalid ated in patients less t [place] 2 years old. RAC (test Performing code = RAC) Organization Information: Site ID: BEBA [facility]: [facility] Address: [address] [place] [address] Director: Rajinder Grant [facility] HospitalHSV 1 and 2 specific Ab [id number] 22:17:00 Test Item Value Reference Interpretation Comments [...] ease refer to http://educatio n.Tri tDiagnostics.co m/faq/ VQH181 (This li nk is being provided for informational/e ducati onal purposes o nly.) RAC (test code = Performing RAC) Organization Information: Site ID: IG Name: [facility] Lab Address: [address] [place] [address] Director: Dr. Rajinder Grant Lab Interpretation Abnormal (test code = 64968-5) [facility] HospitalHep[facility] B surface [id number] 22:17:00 Test Item Value Reference Range Interpretation Comments Hepatitis B surface NON-REACTIVE NON-REACTIVE Ag (test code = 5196-1) RAC (test code = RAC) Performing Organization Information: Site ID: RGA [facility]: [facility] Address: [address] [place] [address] Director: Rajinder Grant [facility] HospitalRPR with reflex to [id number] 22:17:00 Test Item Value Reference Range Interpretation Comments RPR (test code = NON-REACTIVE NON-REACTIVE 81957-4) RAC (test code = Performing Organization RAC) Information: Site ID: RGA [facility]: [facility] Address: [address] [place] [address] Director: Rajinder Grant [facility] C virus (HCV), quantitative [id number] 22:17:00 Test Item Value Reference Interpretation Comments Range HCV RNA, <15 NOT DETECTED NOT DETECTED quantitative PCR IU/mL (test code = 59904-9) HCV viral log <1.18 NOT DETECTED NOT DETECTED This bhupendra t was (test code = Log IU/mL performed using 70418-8) Real-Time Polym erase ChainReaction. Reportable Rang e: 15 IU/mL to 100,00 0,000 IU/mL(1.18 Log IU/mL to 8.00 Log IU/ mL). The analytical performance characteristics of thisassay have been determined by [employer]. Th e modifications h ave not been cleare d or approved bythe FDA. This assay has been validated pursu ant to the CLIA regulations and is used for clinic al purposes. For m ore information on this test, go to:http://educa tion. [employer] /faq/VBD85y2(Th is link is being provided for informational/e ducat ional purposes only.) RAC (test code = Performing RAC) Organization Information: Site ID: IG Name: [facility] Address: [address] [place] [address] Director: Dr. Rajinder Grant [facility] C [id number] 22:17:00 Test Item Value Reference Interpretation Comments Range Hepatitis C Ab (test REACTIVE NON-REACTIVE A code = 81272-9) Signal/cutoff (test >11.00 See_Comment H Based o n this code = 21169-6) result, the sample will be testedf or [...] RAC) Organization Information: Site ID: RGA Name: [facility] Lab Address: [address] [place] [address] Director: Rajinder Grant Lab Interpretation Abnormal (test code = 24734-8) [facility] HospitalHSV type 1/2 combined Ab, [id number] 22:17:00 Test Item Value Reference Interpretation Comments Range HSV 1 IgM NEGATIVE (test code = 98243-3) HSV 2 IgM NEGATIVE REFERENCE RANG E: NEGATIVE HSV (test IgM is detectab le in serum code = from >90% of [facility] 82326-4) primary HSV inf ection. However, HSV Ig [...] performancechar acteristics have been deter mined by [facility].It has not been cleared or appr luis by FDA. This assay hasb een validated pursuant to the CLIA regulations and isused for clinical purpos es. RAC (test Performing code = Organization RAC) Information: Site ID: EZ Name: [facility], Address: [address] [place] [address] Director: Crista Camacho MD,PhD,BARI [facility] HospitalHIV 1/2 antigen/antibody, fourth generation, with reflexes 2022-02-11 22:17:00 Test Item Value Reference Range Interpretation Comments HIV NON-REACTIVE NON-REACTIVE HIV-1 antigen a nd antigen/ant HIV-1/HIV-2 ant ibodies ibody 4th were notdetecte d. There gen (test is no laborator y evidence code = of HIVinfection . PLEASE 24915-8) NOTE: This info rmation has been disclo [...] ad ditional information ple ase refer tohttp://educat ion.[employer]/ faq/GYO880 (This link is b eing provided for informational/e ducational purposes only.) The performance of this assay has not been clinicallyvalid ated in patients less t [place] 2 years old. RAC (test Performing code = RAC) Organization Information: Site ID: RGA [facility]: [facility] Address: [address] [place] [address] Director: Rajinder Girma Grant [facility] HospitalHSV 1 and 2 specific Ab [id number] 22:17:00 Test Item Value Reference Interpretation Comments [...] ease refer to http://educatio n.Ques tDiagnostics.co m/faq/ PMV028 (This li nk is being provided for informational/e ducati onal purposes o nly.) RAC (test code = Performing RAC) Organization Information: Site ID: IG Name: [facility] Lab Address: [address] [place] [address] Director: Dr. Rajinder Grant Lab Interpretation Abnormal (test code = 10090-4) [facility] B surface [id number] 22:17:00 Test Item Value Reference Range Interpretation Comments Hepatitis B surface NON-REACTIVE NON-REACTIVE Ag (test code = 5196-1) RAC (test code = RAC) Performing Organization Information: Site ID: RGA [facility]: [facility] Address: [address] [place] [address] Director: Rajinder Grant [facility] HospitalRP with reflex to [id number] 22:17:00 Test Item Value Reference Range Interpretation Comments RPR (test code = NON-REACTIVE NON-REACTIVE 51131-0) RAC (test code = Performing Organization RAC) Information: Site ID: RGA [facility] Address: [address] [place] [address] Director: Rajinder Grant [facility] C virus (HCV), quantitative [id number] 22:17:00 Test Item Value Reference Interpretation Comments Range HCV RNA, <15 NOT DETECTED NOT DETECTED quantitative PCR IU/mL (test code = 56768-3) HCV viral log <1.18 NOT DETECTED NOT DETECTED This bhupendra t was (test code = Log IU/mL performed using 38240-1) Real-Time Polym erase ChainReaction. Reportable Rang e: 15 IU/mL to 100,00 0,000 IU/mL(1.18 Log IU/mL to 8.00 Log IU/ mL). The analytical performance characteristics of thisassay have been determined by [employer]Positive. Th e modifications h ave not been cleare d or approved bythe FDA. This assay has been validated pursu ant to the CLIA regulations and is used for clinic al purposes. For m ore information on this test, go to:http://educa tion. [employer] /faq/ZJU49j8(Th is link is being provided for informational/e ducat ional purposes only.) RAC (test code = Performing RAC) Organization Information: Site ID: IG Name: [facility] Address: [address] [place] [address] Director: Dr. Rajinder Grant [facility] [id number] 22:17:00 Test Item Value Reference Interpretation Comments Range Hepatitis C Ab (test REACTIVE NON-REACTIVE A code = 42119-9) Signal/cutoff (test >11.00 See_Comment H Based o n this code = 06671-0) result, the sample will be testedf or [...] RAC) Organization Information: Site ID: RGA [facility] Address: [address] [place] [address] Director: Rajinder Grant Lab Interpretation Abnormal (test code = 96611-5) [facility] type 1/2 combined Ab, [id number] 22:17:00 Test Item Value Reference Interpretation Comments Range HSV 1 IgM NEGATIVE (test code = 55225-0) HSV 2 IgM NEGATIVE REFERENCE RANG E: NEGATIVE HSV (test IgM is detectab le in serum code = from >90% of [facility] 40767-4) primary HSV inf ection. However, HSV Ig [...] performancechar acteristics have been deter mined by [employer].It has not been cleared or appr luis by FDA. This assay hasb een validated pursuant to the CLIA regulations and isused for clinical purpos es. RAC (test Performing code = Organization RAC) Information: Site ID: EZ Name: [facility] [facility], Address: [address] [place] [address] Director: Crista Camacho MD,PhD,BARI [facility] HospitalHIV 1/2 antigen/antibody, fourth generation, with reflexes 2022-02-11 22:17:00 Test Item Value Reference Range Interpretation Comments HIV NON-REACTIVE NON-REACTIVE HIV-1 antigen a nd antigen/ant HIV-1/HIV-2 ant ibodies ibody 4th were notdetecte d. There gen (test is no laborator y evidence code = of HIVinfection . PLEASE 12295-2) NOTE: This info rmation has been disclo sed liv from records wh ose confidentiality may beprotected by state law. If your state r equires suchprotection, then the state law prohi bits you frommaking any further disclosure of t he informationwith out the specific writte n consent of the personto whom it pertains, or as otherwise permitted by la w.A general authori zation for the release of medical orother informa tion is NOT sufficient for this purpose. For ad ditional information ple ase refer tohttp://educat ion.[employer].easyOwn.it/ faq/SSK442 (This link is b eing provided for informational/e ducational purposes only.) The performance of this assay has not been clinicallyvalid ated in patients less t lagunas 2 years old. RAC (test Performing code = RAC) Organization Information: Site ID: RGA [facility] Address: [address] [place] [address] Director: Rajinder Grant [facility] HospitalHSV 1 and 2 specific Ab [id number] 22:17:00 Test Item Value Reference Interpretation Comments [...] ease refer to http://educatio n.Ques tDiagnostics.co m/faq/ EDS666 (This li nk is being provided for informational/e ducati onal purposes o nly.) RAC (test code = Performing RAC) Organization Information: Site ID: IG Name: [facility] Address: [address] [place] [address] Director: Dr. Rajinder Grant Lab Interpretation Abnormal (test code = 70183-0) [facility] [id number] 22:17:00 Test Item Value Reference Range Interpretation Comments Hepatitis B surface NON-REACTIVE NON-REACTIVE Ag (test code = 5196-1) RAC (test code = RAC) Performing Organization Information: Site ID: RGA [facility] Address: [address] [place] [address] Director: Rajinder Grant [facility] HospitalRPR with reflex to [id number] 22:17:00 Test Item Value Reference Range Interpretation Comments RPR (test code = NON-REACTIVE NON-REACTIVE 63357-8) RAC (test code = Performing Organization RAC) Information: Site ID: RGA [facility] Address: [address] [place] [address] Director: Rajinder Grant [facility] C virus (HCV), quantitative [id number] 22:17:00 Test Item Value Reference Interpretation Comments Range HCV RNA, <15 NOT DETECTED NOT DETECTED quantitative PCR IU/mL (test code = 22624-4) HCV viral log <1.18 NOT DETECTED NOT DETECTED This bhupendra t was (test code = Log IU/mL performed using 31917-8) Real-Time Polym erase ChainReaction. Reportable Rang e: 15 IU/mL to 100,00 0,000 IU/mL(1.18 Log IU/mL to 8.00 Log IU/ mL). The analytical performance characteristics of thisassay have been determined by [employer]. Th e modifications h ave not been cleare d or approved bythe FDA. This assay has been validated pursu ant to the CLIA regulations and is used for clinic al purposes. For m ore information on this test, go to:http://educa tion. [employer] /faq/ITW86y1(Th is link is being provided for informational/e ducat ional purposes only.) RAC (test code = Performing RAC) Organization Information: Site ID: IG [facility] Address: [address] [place] [address] Director: Dr. Rajinder Grant [facility] C [id number] 22:17:00 Test Item Value Reference Interpretation Comments Range Hepatitis C Ab (test REACTIVE NON-REACTIVE A code = 91371-9) Signal/cutoff (test >11.00 See_Comment H Based o n this code = 86037-6) result, the sample will be testedf or [...] RAC) Organization Information: Site ID: RGA Name: [facility] Address: [address] [place] [address] Director: Rajinder Grant Lab Interpretation Abnormal (test code = 24548-0) [facility] type 1/2 combined Ab, [id number] 22:17:00 Test Item Value Reference Interpretation Comments Range HSV 1 IgM NEGATIVE (test code = 84565-9) HSV 2 IgM NEGATIVE REFERENCE RANG E: NEGATIVE HSV (test IgM is detectab le in serum code = from >90% of [facility] [address]-6) primary HSV inf ection. However, HSV Ig [...] performancechar acteristics have been deter mined by [facility].It has not been cleared or appr luis by FDA. This assay hasb een validated pursuant to the CLIA regulations and isused for clinical purpos es. RAC (test Performing code = Organization RAC) Information: Site ID: EZ Name: [facility], Address: [address] [place] [address] Director: Crista Camacho MD,PhD,BARI [facility]2 antigen/antibody, fourth generation, with reflexes 2022-02-11 22:17:00 Test Item Value Reference Range Interpretation Comments HIV NON-REACTIVE NON-REACTIVE HIV-1 antigen a nd antigen/ant HIV-1/HIV-2 ant ibodies ibody 4th were notdetecte d. There gen (test is no laborator y evidence code = of HIVinfection . PLEASE 27531-7) NOTE: This info rmation has been disclo sed toyzayda from records wh ose confidentiality may beprotected by state law. If your state r equires suchprotection, then the state law prohi bits you frommaking any further disclosure of t he informationwith out the specific writte n consent of the personto whom it pertains, or as otherwise permitted by rodriguez w.A general authori zation for the release of medical orother informa tion is NOT sufficient for this purpose. For ad ditional information ple ase refer tohttp://educat ion.Miso/ faq/YKK007 (This link is b eing provided for informational/e ducational purposes only.) The performance of this assay has not been clinicallyvalid ated in patients less t lagunas 2 years old. RAC (test Performing code = RAC) Organization Information: Site ID: RGA [facility] Address: [address] [place] [address] Director: Rajinder Grant [facility] HospitalHSV 1 and 2 specific Ab [id number] 22:17:00 Test Item Value Reference Interpretation Comments [...] ease refer to http://educatio n.Ques tDiagnostics.co m/faq/ VZL698 (This li nk is being provided for informational/e ducati onal purposes o nly.) RAC (test code = Performing RAC) Organization Information: Site ID: IG Name: [facility] Address: [address] [place] [address] Director: Dr. Rajinder Grant Lab Interpretation Abnormal (test code = 12349-4) [facility] HospitalHepatitis B surface [id number] 22:17:00 Test Item Value Reference Range Interpretation Comments Hepatitis B surface NON-REACTIVE NON-REACTIVE Ag (test code = 5196-1) RAC (test code = RAC) Performing Organization Information: Site ID: RGA [facility] Address: [address] [place] [address] Director: Rajinder Grant [facility] HospitalRPR with reflex to [id number] 22:17:00 Test Item Value Reference Range Interpretation Comments RPR (test code = NON-REACTIVE NON-REACTIVE 13300-8) RAC (test code = Performing Organization RAC) Information: Site ID: RGA [facility] Address: [address] [place] [address] Director: Rajinder Parker [facility] ([facility]), quantitative [id number] 22:17:00 Test Item Value Reference Interpretation Comments Range HCV RNA, <15 NOT DETECTED NOT DETECTED quantitative PCR IU/mL (test code = 22705-4) HCV viral log <1.18 NOT DETECTED NOT DETECTED This bhupendra t was (test code = Log IU/mL performed using 77731-1) Real-Time Polym erase ChainReaction. Reportable Rang e: 15 IU/mL to 100,00 0,000 IU/mL(1.18 Log IU/mL to 8.00 Log IU/ mL). The analytical performance characteristics of thisassay have been determined by DoublePositive. Th e modifications h ave not been cleare d or approved bythe FDA. This assay has been validated pursu ant to the CLIA regulations and is used for clinic al purposes. For m ore information on this test, go to:http://educa tion. [employer] /faq/XXO34m7(Th is link is being provided for informational/e ducat ional purposes only.) RAC (test code = Performing RAC) Organization Information: Site ID: IG [facility]: [facility] Address: [address] [place] [address] Director: Dr. Rajinder Parker [facility] C [id number] 22:17:00 Test Item Value Reference Interpretation Comments Range Hepatitis C Ab (test REACTIVE NON-REACTIVE A code = 01210-5) Signal/cutoff (test >11.00 See_Comment H Based o n this code = 59902-8) result, the sample will be testedf or [...] RAC) Organization Information: Site ID: RGA Name: [facility] Address: [address] [place] [address] Director: Rajinder Grant Lab Interpretation Abnormal (test code = 93992-5) [facility] type 1/2 combined Ab, [id number] 22:17:00 Test Item Value Reference Interpretation Comments Range HSV 1 IgM NEGATIVE (test code = 88528-6) HSV 2 IgM NEGATIVE REFERENCE RANG E: NEGATIVE HSV (test IgM is detectab le in serum code = from >90% of pa [facility] [address]-8) primary HSV inf ection. However, HSV Ig [...] performancechar acteristics have been deter mined by [facility].It has not been cleared or appr luis by FDA. This assay hasb een validated pursuant to the CLIA regulations and isused for clinical purpos es. RAC (test Performing code = Organization RAC) Information: Site ID: EZ Name: [facility], Address: [address] [place] [address] Director: Crista Camacho MD,PhD,BARI [facility] HospitalHIV 1/2 antigen/antibody, fourth generation, with reflexes 2022-02-11 22:17:00 Test Item Value Reference Range Interpretation Comments HIV NON-REACTIVE NON-REACTIVE HIV-1 antigen a nd antigen/ant HIV-1/HIV-2 ant ibodies ibody 4th were notdetecte d. There gen (test is no laborator y evidence code = of HIVinfection . PLEASE 01785-5) NOTE: This info rmation has been disclo sed liv from records wh ose confidentiality may beprotected by state law. If your state r equires suchprotection, then the state law prohi bits you frommaking any further disclosure of t he informationwith out the specific writte n consent of the personto whom it pertains, or as otherwise permitted by rodriguez dubon authori zation for the release of medical orother informa tion is NOT sufficient for this purpose. For ad ditional information ple ase refer tohttp://educat ion.Miso/ faq/XOJ655 (This link is b eing provided for informational/e ducational purposes only.) The performance of this assay has not been clinicallyvalid ated in patients less t lagunas 2 years old. RAC (test Performing code = RAC) Organization Information: Site ID: RGA [facility] Address: [address] [place] [address] Director: Rajinder Grant [facility] HospitalHSV 1 and 2 specific Ab [id number] 22:17:00 Test Item Value Reference Interpretation Comments [...] information, pl ease refer to http://educatio nReza tDiagnostics.ePantry m/faq/ DGP599 (This li nk is being provided for informational/e ducati onal purposes o nly.) RAC (test code = Performing RAC) Organization Information: Site ID: IG Name: [facility] Lab Address: [address] [place] [address] Director: Dr. Rajinder Grant Lab Interpretation Abnormal (test code = 54014-7) [facility] pathology [id number] 15:02:28 Test Item Value Reference Range Interpretation Comments Case number (test code = [id number]) Surgical pathology See link below for report (test code = PDF Lab Report 2255) Result status (test code This is Final Report = [id number]) for [id number] [facility] pathology [id number] 15:02:28 Test Item Value Reference Range Interpretation Comments Case number (test code = [id number]) Surgical pathology See link below for report (test code = PDF Lab Report 2255) Result status (test code This is Final Report = [id number]) for [address] pathology [id number] 15:02:28 Test Item Value Reference Range Interpretation Comments Case number (test code = [id number]) Surgical pathology See link below for report (test code = PDF Lab Report 2255) Result status (test code This is Final Report = [id number]) for [address] pathology [id number] 15:02:28 Test Item Value Reference Range Interpretation Comments Case number (test code = [id number]) Surgical pathology See link below for report (test code = PDF Lab Report 2255) Result status (test code This is Final Report = [id number]) for [address] pathology [id number] 15:02:28 Test Item Value Reference Range Interpretation Comments Case number (test code = [id number]) Surgical pathology See link below for report (test code = PDF Lab Report 2255) Result status (test code This is Final Report = [id number]) for [id number] [facility] pathology [id number] 15:02:28 Test Item Value Reference Range Interpretation Comments Case number (test code = [id number]) Surgical pathology See link below for report (test code = PDF Lab Report 2255) Result status (test code This is Final Report = [id number]) for [id number] [facility] HospitalCOVID-19 qualitative [id number] 22:09:28 Test Item Value Reference Interpretation Comments Range Interpretation (test Negative results do not code = 3263465) preclude COVID-19 infection and should not be used asthe sole basis for treatment or other patient management decisions. Negativeresults must be combined with clinical observations, patient history, andepidemiological information. COVID-19 qualitative Not-Detected Not-Detected RT-PCR result (test code = 17153-1) COVID-19 qualitative See link below for PDF Case Number: RT-PCR (test code = Lab Report [id number]) [facility] qualitative [id number] 22:09:28 Test Item Value Reference Interpretation Comments Range Interpretation (test Negative results do not code = 7364377) preclude COVID-19 infection and should not be used asthe sole basis for treatment or other patient management decisions. Negativeresults must be combined with clinical observations, patient history, andepidemiological information. COVID-19 qualitative Not-Detected Not-Detected RT-PCR result (test code = 12052-8) COVID-19 qualitative See link below for PDF Case Number: RT-PCR (test code = Lab Report [id number] [id number]) [facility] [id number] 22:09:28 Test Item Value Reference Interpretation Comments Range Interpretation (test Negative results do not code = 7975222) preclude COVID-19 infection and should not be used asthe sole basis for treatment or other patient management decisions. Negativeresults must be combined with clinical observations, patient history, andepidemiological information. COVID-19 qualitative Not-Detected Not-Detected RT-PCR result (test code = 31030-8) COVID-19 qualitative See link below for PDF Case Number: RT-PCR (test code = Lab Report [id number] [id number]) [facility] qualitative [id number] 22:09:28 Test Item Value Reference Interpretation Comments Range Interpretation (test Negative results do not code = 4624689) preclude COVID-19 infection and should not be used asthe sole basis for treatment or other patient management decisions. Negativeresults must be combined with clinical observations, patient history, andepidemiological information. COVID-19 qualitative Not-Detected Not-Detected RT-PCR result (test code = 77816-0) COVID-19 qualitative See link below for PDF Case Number: RT-PCR (test code = Lab Report [id number] [id number]) [id number] 22:09:28 Test Item Value Reference Interpretation Comments Range Interpretation (test Negative results do not code = 7499204) preclude COVID-19 infection and should not be used asthe sole basis for treatment or other patient management decisions. Negativeresults must be combined with clinical observations, patient history, andepidemiological information. COVID-19 qualitative Not-Detected Not-Detected RT-PCR result (test code = 59889-8) COVID-19 qualitative See link below for PDF Case Number: RT-PCR (test code = Lab Report [id number] [id number]) [facility] qualitative [id number] 22:09:28 Test Item Value Reference Interpretation Comments Range Interpretation (test Negative results do not code = 1552195) preclude COVID-19 infection and should not be used asthe sole basis for treatment or other patient management decisions. Negativeresults must be combined with clinical observations, patient history, andepidemiological information. COVID-19 qualitative Not-Detected Not-Detected RT-PCR result (test code = 58675-8) COVID-19 qualitative See link below for PDF Case Number: RT-PCR (test code = Lab Report [id number]) [facility] RNA [Presence] in Respiratory specimen by LATESHA with probe [id number] 17:09:28 Test Item Value Reference Range Interpretation Comments SARS-CoV-2 (COVID-19) RNA Not detected [Presence] in Respiratory specimen by LATESHA with probe detection (test code = 03008-7) Whether patient is employed in a Unknown healthcare setting (test code = 02903-7) Whether the patient has symptoms Unknown related to condition of interest (test code = 44630-0) Whether the patient was Unknown hospitalized for condition of interest (test code = 51115-2) Whether the patient was admitted Unknown to intensive care unit (ICU) for condition of interest (test code = 13581-7) Whether patient resides in a Unknown congregate care setting (test code = 27889-3) status (test code = Unknown 21905-0) Date and time of symptom onset Unknown (test code = 58072-8) [facility]ITAL[facility]INPREP TIS AND HPV mRNA [id number] 20:30:00 Test Item Value Reference Interpretation Comments Range Clinical information None gi niurka (test code = 98732-8) Date of last NONE GIVEN menstrual period (test code = 8665-2) Prev. pap: (test code NONE G IVEN = 95361-8) Prev. bx: (test code NONE GI NIURKA = 76698-5) Source (test code = None giv en 64151-1) Statement of adequacy Satisf actory for (test code = 51673-8) evalua tion.Endocervi cony/transformat ion zone componentpresen t.Age and/or menstrua l status not prov ided Interpretation/result Negati ve for : (test code = intraepitheli al 49551-7) lesion or malignancy. Comment (test code = This Pa p test has ) been evaluated with ThermoCeramixassiste d technology. [employer], CT ( CP)CT (test code = 27107-0) screen ing location: [address], [place] [address] 2 Comment (test code = EXPLANA TORY NOTE: 8160229) The Pap is a screening test for [...] Detected Not Detected Methodo logy: code = 24923-7) Transcriptio n-Mediat ed Amplificatio n This assay [...] For additional information, pl ease refer tohttp://educat ion.[employer]/ faq/DTG521p8(Th is link if provide d for information/edu catio nal purposes on ly.) RAC (test code = RAC) Performing Organization Information: Site ID: IG Name: [facility] Address: [address] [place] [address] Director: Dr. Rajinder Grant Site ID: RGA Name: [facility] Address: [address] [place] [address] Director: Rajinder Grant [facility] HospitalTHINPREP TIS AND HPV mRNA [id number] 20:30:00 Test Item Value Reference Interpretation Comments Range Clinical information None gi niurka (test code = 96656-2) Date of last NONE GIVEN menstrual period (test code = 8665-2) Prev. pap: (test code NONE G IVEN = 82361-6) Prev. bx: (test code NONE GI NIURKA = 29693-4) Source (test code = [place] 86722-5) Statement of adequacy Satisf actory for (test code = 44418-2) evalua tion.Endocervi cony/transformat ion zone componentpresen t.Age and/or menstrua l status not prov ided Interpretation/result Negati ve for : (test code = intraepitheli al 81091-9) lesion or malignancy. Comment (test code = This Pa p test has ) been evaluated with computerassiste d technology. [employer], CT ( CP)CT (test code = 35533-8) screen ing location: [facility] [address] [facility], [place] [address] 2 Comment (test code = EXPLANA TORY NOTE: 5002933) The Pap is a screening test for [...] Detected Not Detected Methodo logy: code = 47797-3) Transcriptio n-Mediat ed Amplificatio n This assay [...] For additional information, pl ease refer tohttp://educat ionzkipster/ faq/NFT538i8(Th is link if provide d for information/edu catio nal purposes on ly.) JACEK (test code = RAC) Performing Organization Information: Site ID: IG Name: [facility] Address: [address] [place] [address] Director: Dr. Rajinder Grant Site ID: RGA Name: [facility] Address: [address] [place] [address] Director: Rajinder Grant [facility] HospitalTHINPREP TIS AND HPV mRNA [id number] 20:30:00 Test Item Value Reference Interpretation Comments Range Clinical information None gi niurka (test code = 80205-0) Date of last NONE GIVEN menstrual period (test code = 8665-2) Prev. pap: (test code NONE G IVEN = 63540-0) Prev. bx: (test code NONE GI NIURKA = 41383-8) Source (test code = None giv en ) Statement of adequacy Satisf actory for (test code = 14833-8) evalua tion.Endocervi cony/transformat ion zone componentpresen t.Age and/or menstrua l status not prov ided Interpretation/result Negati ve for : (test code = intraepitheli al 14817-6) lesion or malignancy. Comment (test code = This Pa p test has ) been evaluated with computerassiste d technology. [employer] CT ( CP)CT (test code = 33103-1) screen ing location: [facility] [address] [place] [address], [place] [address] 2 Comment (test code = VIRGILIO CASTELLANO NOTE: 8183699) The Pap is a screening test for [...] Detected Not Detected Methodo logy: code = 82121-0) Transcriptio n-Mediat ed Amplificatio n This assay [...] For additional information, pl ease refer tohttp://educat ion.[employer] .easyOwn.it/ faq/INB931f8(Th is link if provide d for information/edu catio nal purposes on ly.) RAC (test code = RAC) Performing Organization Information: Site ID: IG Name: [facility] Address: [address] [place] [address] Director: Dr. Rajinder Grant Site ID: RGA Name: [facility] Address: [address] [place] [address] Director: Rajinder Grant [facility] HospitalTHINPREP TIS AND HPV mRNA [id number] 20:30:00 Test Item Value Reference Interpretation Comments Range Clinical information None gi niurka (test code = 76554-1) Date of last NONE GIVEN menstrual period (test code = 8665-2) Prev. pap: (test code NONE G IVEN = 76766-6) Prev. bx: (test code NONE GI NIURKA = 31710-8) Source (test code = None giv en 66458-6) Statement of adequacy Satisf actory for (test code = 07848-7) evalua tion.Endocervi cony/transformat ion zone componentpresen t.Age and/or menstrua l status not prov ided Interpretation/result Negati ve for : (test code = intraepitheli al 06045-6) lesion or malignancy. Comment (test code = This Pa p test has ) been evaluated with Thwapriste d technology. [employer], CT ( CP)CT (test code = 42380-1) screen ing location: [place] [address] [address], [facility] 7707 2 Comment (test code = EXPLANA TORY NOTE: [id number]) The Pap is a screening test for [...] Detected Not Detected Methodo logy: code = 54554-2) Transcriptio n-Mediat ed Amplificatio n This assay [...] For additional information, pl ease refer tohttp://educat ion.[employer]/ faq/PXZ631i8(Th is link if provide d for information/edu catio nal purposes on ly.) JACEK (test code = RAC) Performing Organization Information: Site ID: IG Name: [facility] Address: [address] [place] [address] Director: Dr. Rajinder Grant Site ID: RGA Name: [facility] Address: [address] [place] [address] Director: Rajinder Grant [facility] AND HPV mRNA E6/[id number] 20:30:00 Test Item Value Reference Interpretation Comments Range Clinical information None gi niurka (test code = 50979-9) Date of last NONE GIVEN menstrual period (test code = 8665-2) Prev. pap: (test code NONE G IVEN = 23649-1) Prev. bx: (test code NONE GI NIURKA = 10095-9) Source (test code = [place] [address]2444-0) Statement of adequacy Satisf actory for (test code = 27890-8) evalua tion.Endocervi cony/transformat ion zone componentpresen t.Age and/or menstrua l status not prov ided Interpretation/result Negati ve for : (test code = intraepitheli al 51376-1) lesion or malignancy. Comment (test code = This Pa p test has ) been evaluated with Thwapriste d technology. Cook Syrup Maker SYL DUTTON ( CP)CT (test code = 51985-3) screen ing location: [facility] [address] [place] [address], [place] [address] 2 Comment (test code = EXPLANA TORY NOTE: 4255655) The Pap is a screening test for [...] Detected Not Detected Methodo logy: code = 11486-8) Transcriptio n-Mediat ed Amplificatio n This assay [...] For additional information, pl ease refer tohttp://educat ion.[employer]/ faq/HOQ170z1(Th is link if provide d for information/edu catio nal purposes on ly.) JACEK (test code = RAC) Performing Organization Information: Site ID: IG Name: [facility] Address: [address] [place] [address] Director: Dr. Rajinder Grant Site ID: RGA Name: [facility] Address: [address] [place] [address] Director: Rajinder Grant [facility] HospitalTHIN[facility]P [facility] AND HPV mRNA [id number]/[id number] 20:30:00 Test Item Value Reference Interpretation Comments Range Clinical information None gi niurka (test code = 08692-0) Date of last NONE GIVEN menstrual period (test code = 8665-2) Prev. pap: (test code NONE G IVEN = 42633-2) Prev. bx: (test code NONE GI NIURKA = 72826-7) Source (test code = [place] 77293-1) Statement of adequacy Satisf actory for (test code = 61844-9) evalua tion.Endocervi cony/transformat ion zone componentpresen t.Age and/or menstrua l status not prov ided Interpretation/result Negati ve for : (test code = intraepitheli al 67175-7) lesion or malignancy. Comment (test code = This Pa p test has ) been evaluated with computerassiste d technology. Cook Syrup Maker DJL, CT ( CP)CT (test code = 65357-0) screen ing location: [facility] [address] [place] [address], [place] [address] 2 Comment (test code = EXPLANA TORY NOTE: 4640717) The Pap is a screening test for [...] Detected Not Detected Methodo logy: code = 94500-5) Transcriptio n-Mediat ed Amplificatio n This assay [...] For additional information, pl ease refer tohttp://educat ion.[employer]/ faq/AAN985i4(Th is link if provide d for information/edu catio nal purposes on ly.) RAC (test code = RAC) Performing Organization Information: Site ID: IG Name: [facility] Address: [address] [place] [address] Director: Dr. Rajinder Grant Site ID: RGA Name: [facility] Address: [address] [place] [address] Director: Rajinder Grant [address]2022-09-01 18:14:37 Test Item Value Reference Range Interpretation Comments Ventricular rate (test code = 253) Atrial rate (test code = 255) NE interval (test code = 266) QRSD interval [...] of 07-NOV-2021 12:57,-No significant change was found- [address]2022-09-01 18:14:37 Test Item Value Reference Range Interpretation Comments Ventricular rate (test code = 253) Atrial rate (test code = 255) NE interval (test code = 266) QRSD interval [...] of 07-NOV-2021 12:57,-No significant change was found- [facility] 12 [id number] 18:14:37 Test Item Value Reference Range Interpretation Comments Ventricular rate (test code = 253) Atrial rate (test code = 255) NE interval (test code = 266) QRSD interval [...] of 07-NOV-2021 12:57,-No significant change was found- [facility] RNA [Presence] in Respiratory specimen by LATESHA with probe rzclhsvka8785-06-04 21:57:49 Test Item Value Reference Range Interpretation Comments SARS-CoV-2 (COVID-19) RNA [Presence] Detected in Respiratory specimen by LATESHA with probe detection (test code = 77378-9) Whether patient is employed in a Unknown healthcare setting (test code = 64973-1) Whether the patient has symptoms Unknown related to condition of interest (test code = 74267-4) Whether the patient was hospitalized Unknown for condition of interest (test code = 49815-6) Whether the patient was admitted to Unknown intensive care unit (ICU) for condition of interest (test code = 19736-6) Whether patient resides in a Unknown congregate care setting (test code = 80292-9) status (test code = Unknown 65217-2) Date and time of symptom onset (test Unknown code = 93452-4) [facility]ITAL[facility]atic function [id number] 18:40:00 Test Item Value Reference Range Interpretation [...] RAC) Organization Information: Site ID: RGA [facility] Address: [address] [place] [address] Director: Rajinder Grant [facility] HospitalHepatic function [id number] 18:40:00 Test Item Value Reference Range Interpretation [...] RAC) Organization Information: Site ID: RGA [facility] Address: [address] [place] [address] Director: [facility] [id number] 18:40:00 Test Item Value Reference Range Interpretation [...] 0-8) ALT (test code = 14 U/L 10-082-6) WILDA (test code = FASTING: UNKNOWN WILDA) RAC (test code = Performing RAC) Organization Information: Site ID: RGA [facility] Address: [address] [place] [address] Director: Greenway Girma MedinaConrathPeoples HospitalHepatic function [id number] 18:40:00 Test Item Value Reference Range Interpretation [...] 0-8) ALT (test code = 14 U/L 10-08-6) WILDA (test code = FASTING: UNKNOWN WILDA) RAC (test code = Performing RAC) Organization Information: Site ID: RGA [facility] Address: [address] [place] [address] Director: Greenway Girma MedinaRudyPeoples HospitalHepatic function [id number] 18:40:00 Test Item Value Reference Range Interpretation [...] RAC) Organization Information: Site ID: RGA [facility] Address: [address] [place] [address] Director: Greenway Girma MedinaConrathPeoples HospitalHepatic function [id number] 18:40:00 Test Item Value Reference Range Interpretation [...] = Performing RAC) Organization Information: Site ID: [facility] Name: [facility] Address: [address] [place] [address] Director: aRjinder Grant [facility] SkdsszikVYLH-UaT-4 (COVID-19) RNA [Presence] in Respiratory specimen by LATESHA with probe [id number] 20:46:09 Test Item Value Reference Range Interpretation Comments SARS-CoV-2 (COVID-19) RNA Not detected [Presence] in Respiratory specimen by LATESHA with probe detection (test code = 22930-5) Whether patient is employed in a Unknown healthcare setting (test code = 16120-9) Whether the patient has symptoms Unknown related to condition of interest (test code = 17295-6) Whether the patient was Unknown hospitalized for condition of interest (test code = 73070-2) Whether the patient was admitted Unknown to intensive care unit (ICU) for condition of interest (test code = 84244-7) Whether patient resides in a Unknown congregate care setting (test code = 20705-9) status (test code = Unknown 22463-0) Date and time of symptom onset Unknown (test code = 46383-5) [facility] CenterThy[facility] stimulating zvtundf6374-09-18 05:23:00 Test Item Value Reference Range Interpretation Comments TSH (test code mIU/L Reference Ra nge = 3016-3) > or = 20 Years 0.40-4.50 Range s First trimester 0.26-2.66 Secon d trimester 0.55-2.73 Third trimester 0.43-2.91 RAC (test code Performing = RAC) Organization Information: Site ID: RGA [facility] Address: [address] [place] [address] Director: Rajinder KiddCH[facility] St[facility] HospitalThyroid stimulating [id number] 05:23:00 Test Item Value Reference Range Interpretation Comments TSH (test code mIU/L Reference Ra nge > = 3016-3) or = 20 Years 0.40-4.50 Range s First trimester 0.26-2.66 Secon d trimester 0.55-2.73 Third trimester 0.43-2.91 RAC (test code Performing = RAC) Organization Information: Site ID: RGA [facility] Address: [address] [place] [address] Director: Rajinder LamarUniversity Hospitals St. [facility] Center[facility]2022-06-11 05:23:00 Test Item Value Reference Range Interpretation Comments TSH (test code mIU/L Reference Ra nge > = 3016-3) or = 20 Years 0.40-4.50 Range s First trimester 0.26-2.66 Secon d trimester 0.55-2.73 Third trimester 0.43-2.91 RAC (test code Performing = RAC) Organization Information: Site ID: RGA [facility] Address: [address] [place] [address] Director: Rajinder KiddP[facility]2022-06-11 05:23:00 Test Item Value Reference Range Interpretation Comments TSH (test code mIU/L Reference Ra nge > = 3016-3) or = 20 Years 0.40-4.50 Range s First trimester 0.26-2.66 Secon d trimester 0.55-2.73 Third trimester 0.43-2.91 RAC (test code Performing = RAC) Organization Information: Site ID: RGA [facility] Address: [address] [place] [address] Director: Rajinder [facility]iddB[facility] [id number] 05:23:00 Test Item Value Reference Range Interpretation Comments TSH (test code mIU/L Reference Ra nge > = 3016-3) or = 20 Years 0.40-4.50 Range s First trimester 0.26-2.66 Secon d trimester 0.55-2.73 Third trimester 0.43-2.91 RAC (test code Performing = RAC) Organization Information: Site ID: RGA [facility] Address: [address] [place] [address] Director: [facility] HospitalThyroid stimulating ouixlba8920-92-26 05:23:00 Test Item Value Reference Range Interpretation Comments TSH (test code mIU/L Reference Ra nge > = 3016-3) or = 20 Years 0.40-4.50 Range s First trimester 0.26-2.66 Secon d trimester 0.55-2.73 Third trimester 0.43-2.91 RAC (test code Performing = RAC) Organization Information: Site ID: RGA [facility] Address: [address] [place] [address] Director: [facility] HospitalUA RFLX MICR CULT IF [id number] 18:48:00 Test Item Value Reference Range Interpretation [...] LACT) 0.7 mmol/L 0.7-2.0 N LIVER FUNCTION [id number] 15:14:00 Test Item Value Reference Range Interpretation [...] U/L 38-126 N (test code = ALKP) [id number] 15:14:00 Test Item Value Reference Range Interpretation [...] ~~~~~~~~~~~~ ~~~~~~~~~~~~~~~ ~~~~~~~~~~~~ ~~~~~~~~~~~~~~~ ~ BASIC METABOLIC [id number] 15:14:00 Test Item Value Reference Range Interpretation [...] = HEMINDEX) - CT ABD PELVIS W/O [id number] 14:53:00 [facility] 1970 Sex: F FAX: Debo Gutierrez [place]: St: REG Name: HERSON JACKSON [facility] : 1970 Age/S: 51/F [address] Unit: [id number] Loc: [place] [address] Phys: Debo Gutierrez Acct: [id number] Dis Date: Status: REG ER PHONE #: [phone] Exam Date: 08/08/2021 [facility]5 FAX #: [phone] Reason: flank pain EXAMS: CPT CODE: [id number] CT ABD PELVIS W/O CONT 87944 EXAM: CT abdomen and pelvis without contrast [...] the pancreas. Spleen: No abnormality identified in thespleen. Adrenals: No abnormality identified in either adrenal gland. Genitourinary: Right kidney : The kidneys are normal. No hydronephrosis. no nephrolithiasis Left kidney: The kidneys are normal. No hydronephrosis there is a punctated calcification at the mid to lower aspect compatible with PAGE 1 Si gned Report (CONTINUED) FAX: Debo Gutierrez [place]: St: REG Name: HERSON JACKSON [facility] : 1970Age/S: 51/F [address] Unit: [id number] Loc: [place] [address] Phys: Debo Gutierrez APRNNPAcct: [id number] Dis Date: Status: REG ER PHONE #: [phone] Exam Date: 08/08/2021 1435 FAX #:[phone] Reason: flank pain EXAMS: CPT CODE: [id number] CT ABD PELVIS W/O CONT 44691 (Continued) nephrolithiasis . Evaluation of the bladder [...] gross abnormality is identified. Lymph nodes: No enlargedlymph nodes by CT size criteria. Bones/Soft Tissues: [...] 2 Signed Report (CONTINUED) FAX: Debo Gutierrez [place]: St: REG Name: HERSON JACKSON [facility] : 1970 Age/S: 51/F [address] Unit: [id number] Loc: [place] [address] Phys: Debo Gutierrez Acct: [id number] Dis Date: Status: REG ER PHONE #: [phone] Exam Date: 08/08/2021 1435 FAX #: [phone] Reason: flank pain EXAMS: CPT CODE: [id number] CT ABD PELVIS W/O CONT 47854 (Continued) CC: Debo Gutierrez Technologist: Debo Ortiz; SCOTT BENAVIDES Trnalyshard Dt/Tm: 08/08/2021 (6063) [email or web address] Orig Print D/T: S: 08/08/2021 (5236 PAGE 3 Signed ReportCB W/AUTO [id number] 14:21:00 Test Item Value Reference Range Interpretation [...] 3/uL 0.0-0.1 N - XR CHEST 1 [id number] 13:50:00 [facility] : 1970 Sex: F FAX: Debo Gutierrez [place]: St: PRE Name: HERSON JACKSON [facility] : 1970 Age/S: 51/F [address] Unit #: [id number] Loc: [place] [address] Phys: Debo Gutierrez Acct: [id number] Dis Date: Status: PRE ER PHONE #: [phone] Exam Date: 08/08/2021 1340 FAX #: [phone] Reason: CODE SEPSIS EXAMS: CPT CODE: [id number] XR CHEST 1 V 70707 CHEST 1 VIEW: INDICATION: CODE SEPSIS COMPARISON: [...] GILLIS; STUDENT 2ND YEAR Trnscrd Date/Time/By: 08/08/2021 (3888) : By: [email or web address] PAGE 1 Signed Report FAX: Debo Gutierrez [place]: St: PRE --Name: HERSON JACKSON [facility] : 1970 Age/S: 51/F [address] Unit #: [id number] Loc: [place] [address] Phys: Debo Gutierrez [facility] Acct: [id number] Dis Date: Status: PRE ER PHONE #: [phone] Exam Date: 08/08/2021 1340 FAX #: [phone] Reason: CODE SEPSIS EXAMS: CPT CODE: [id number] XR CHEST 1 V 68621 (Continued) Orig Print D/T: S: 08/08/2021 (0295) PAGE 2 Signed ReportTHINPREP TIS PAP AND HPV mRNA E6/E7 REFLEX HPV 16,18/45 2021-06-19 18:43:00 Test Item Value Reference Interpretation Comments Range Clinical information None gi niurka (test code = 46330-1) Date of last NONE GIVEN menstrual period (test code = 8665-2) Prev. pap: (test code NONE G IVEN = 76602-0) Prev. bx: (test code NONE GI NIURKA = 49718-9) Source (test code = None giv en ) Statement of adequacy Satisf actory for (test code = 41963-8) evalua tion.Endocervi cony/transformat ion zone componentpresen t.Age and/or menstrua l status not prov ided Interpretation/result Negati ve for : (test code = intraepitheli al 94759-1) lesion or malignancy. Comment (test code = This Pa p test has ) been evaluated with computerassiste d technology. Review PMT, CT(ASCP)CT slide fasteners inspector screening l ocation: (test code = 68807-1) [email or web address] [address], [place] [address] 2 Comment (test code = EXPLANA NONA NOTE: 3490979) The Pap is a screening test for [...] Detected Not Detected Methodo logy: code = 66356-0) Transcriptio n-Mediat ed Amplificatio n This assay dete cts E6/E7 viral messenger RNA ( mRNA) from 14high-ris k HPV types (16,18,31,33,35 ,39,4 5,51,52,56,58,5 9,66, 68). The analyt ical performance characteristics of thisassay have been determined by DoublePositive.The modifications h ave not been cleare d or approvedby the FDA. This assay has been validated pursu antto the CLIA regula tions and is used forclinical purposes. For additional information, pl ease refer tohttp://educat ion.Amakem .easyOwn.it/ faq/LCZ836u6(Th is link if provide d for information/edu catio nal purposes on ly.) JACEK (test code = RAC) Performing Organization Information: Site ID: IG Name: [facility] Address: [address] [place] [address] Director: Dr. Rajinder Grant Site ID: RGA Name[facility] Address: [address] [place] [address] Director: Rajinder Grant [facility] HospitalTHINPREP TIS PAP AND HPV mRNA E6/E7 REFLEX HPV 16,18/45 2021-06-19 18:43:00 Test Item Value Reference Interpretation Comments Range Clinical information None gi niurka (test code = 11000-5) Date of last NONE GIVEN menstrual period (test code = 8665-2) Prev. pap: (test code NONE G IVEN = 18966-0) Prev. bx: (test code NONE GI NIURKA = 53770-5) Source (test code = None giv en ) Statement of adequacy Satisf actory for (test code = 96012-3) evalua tion.Endocervi cony/transformat ion zone componentpresen t.Age and/or menstrua l status not prov ided Interpretation/result Negati ve for : (test code = intraepitheli al 39136-3) lesion or malignancy. Comment (test code = This Pa p test has ) been evaluated with [employer] technology. Review PMT, CT(ASCP)CT slide fasteners inspector screening l ocation: (test code = ) [facility] [address], [facility] [address] Comment (test code = EXPLANA TORY NOTE: 8206951) The Pap is a screening test for [...] Detected Not Detected Methodo logy: code = 62332-7) Transcriptio n-Mediat ed Amplificatio n This assay dete cts E6/E7 viral messenger RNA ( mRNA) from 14high-ris k HPV types (16,18,31,33,35 ,39,4 5,51,52,56,58,5 9,66, 68). The analyt ical performance characteristics of thisassay have been determined by DoublePositive.The modifications h ave not been cleare d or approvedby the FDA. This assay has been validated pursu antto the CLIA regula tions and is used forclinical purposes. For additional information, pl ease refer tohttp://educat ion.Amakem .easyOwn.it/ faq/SQV499j3(Th is link if provide d for information/edu catio nal purposes on ly.) JACEK (test code = RAC) Performing Organization Information: Site ID: IG Name: [facility] Address: [address] [place] [address] Director: Dr. Rajinder Grant Site ID: [facility]GA Name: [facility] Address: [address] [place] [address] Director: Rajinder Grant [facility] HospitalTHINPREP TIS PAP AND HPV mRNA E6/E7 REFLEX HPV 16,18/45 2021-06-19 18:43:00 Test Item Value Reference Interpretation Comments Range Clinical information None gi niurka (test code = 71542-0) Date of last NONE GIVEN menstrual period (test code = 8665-2) Prev. pap: (test code NONE G IVEN = 70930-3) Prev. bx: (test code NONE GI NIURKA = 49034-8) Source (test code = None giv en ) Statement of adequacy Satisf actory for (test code = 43884-8) evalua tion.Endocervi cony/transformat ion zone componentpresen t.Age and/or menstrua l status not prov ided Interpretation/result Negati ve for : (test code = intraepitheli al 90502-2) lesion or malignancy. Comment (test code = This Pa p test has ) been evaluated with computerassiste d technology. Review PMT, CT(ASCP)CT slide fasteners inspector screening l ocation: (test code = 90507-5) [email or web address] [address], [place] [address] 2 Comment (test code = EXPLANA TORY NOTE: 0788382) The Pap is a screening test for [...] Detected Not Detected Methodo logy: code = 26457-2) Transcriptio n-Mediat ed Amplificatio n This assay dete cts E6/E7 viral messenger RNA ( mRNA) from 14high-ris k HPV types (16,18,31,33,35 ,39,4 5,51,52,56,58,5 9,66, 68). The analyt ical performance characteristics of thisassay have been determined by DoublePositive.The modifications h ave not been cleare d or approvedby the FDA. This assay has been validated pursu antto the CLIA regula tions and is used forclinical purposes. For additional information, pl ease refer tohttp://educat ion.Amakem .easyOwn.it/ faq/ULV252u9(Th is link if provide d for information/edu catio nal purposes on ly.) RAC (test code = RAC) Performing Organization Information: Site ID: IG Name: [facility] Address: [address] [place] [address] Director: Dr. Rajinder Grant Site ID: RGA Name: [facility] Address: [address] [place] [address] Director: Rajinder Grant [facility] HospitalTHINPREP TIS PAP AND HPV mRNA E6/E7 REFLEX HPV 16,18/45 2021-06-19 18:43:00 Test Item Value Reference Interpretation Comments Range Clinical information None gi niurka (test code = 98336-9) Date of last NONE GIVEN menstrual period (test code = 8665-2) Prev. pap: (test code NONE G IVEN = 66671-7) Prev. bx: (test code NONE GI NIURKA = 12780-3) Source (test code = None giv en 63198-1) Statement of adequacy Satisf actory for (test code = 14867-4) evalua tion.Endocervi cony/transformat ion zone componentpresen t.Age and/or menstrua l status not prov ided Interpretation/result Negati ve for : (test code = intraepitheli al 72455-3) lesion or malignancy. Comment (test code = This Pa p test has ) been evaluated with computerassiste d technology. Review PMT, CT(ASCP)CT slide fasteners inspector screening l ocation: (test code = 16255-0) [email or web address] [address], [place] [address] 2 Comment (test code = EXPLANA TORY NOTE: 7031884) The Pap is a screening test for [...] Detected Not Detected Methodo logy: code = 58331-7) Transcriptio n-Mediat ed Amplificatio n This assay dete cts E6/E7 viral messenger RNA ( mRNA) from 14high-ris k HPV types (16,18,31,33,35 ,39,4 5,51,52,56,58,5 9,66, 68). The analyt ical performance characteristics of thisassay have been determined by DoublePositive.The modifications h ave not been cleare d or approvedby the FDA. This assay has been validated pursu antto the CLIA regula tions and is used forclinical purposes. For additional information, pl ease refer tohttp://educat ion.Amakem .easyOwn.it/ faq/WUG668u2(Th is link if provide d for information/edu catio nal purposes on ly.) JACEK (test code = JACEK) Performing Organization Information: Site ID: IG Name: [facility] Address: [address] [place] [address] Director: Dr. Rajinder Grant Site ID: RGA Name: [facility] Address: [address] [place] [address] Director: Rajinder Grant [facility] HospitalTHINPREP TIS PAP AND HPV mRNA E6/E7 REFLEX HPV 16,18/45 2021-06-19 18:43:00 Test Item Value Reference Interpretation Comments Range Clinical information None gi niurka (test code = 49142-1) Date of last NONE GIVEN menstrual period (test code = 8665-2) Prev. pap: (test code NONE G IVEN = 66281-8) Prev. bx: (test code NONE GI NIURKA = 15180-2) Source (test code = None giv en ) Statement of adequacy Satisf actory for (test code = 23682-5) evalua tion.Endocervi cony/transformat ion zone componentpresen t.Age and/or menstrua l status not prov ided Interpretation/result Negati ve for : (test code = intraepitheli al 18231-1) lesion or malignancy. Comment (test code = This Pa p test has ) been evaluated with computerassiste d technology. Review PMT, CT(ASCP)CT slide fasteners inspector screening l ocation: (test code = 83625-3) [email or web address] [address], [place] [address] 2 Comment (test code = EXPLANA TORY NOTE: [id number]) The Pap is a screening test for [...] Detected Not Detected Methodo logy: code = 93945-1) Transcriptio n-Mediat ed Amplificatio n This assay dete cts E6/E7 viral messenger RNA ( mRNA) from 14high-ris k HPV types (16,18,31,33,35 ,39,4 5,51,52,56,58,5 9,66, 68). The analyt ical performance characteristics of thisassay have been determined by DoublePositive.The modifications h ave not been cleare d or approvedby the FDA. This assay has been validated pursu antto the CLIA regula tions and is used forclinical purposes. For additional information, pl ease refer tohttp://educat ion.Amak[employer] .com/ faq/TUD642s7(Th is link if provide d for information/edu catio nal purposes on ly.) JACEK (test code = RAC) Performing Organization Information: Site ID: IG Name: [facility] Address: [address] [place] [phone] Director: Dr. Rajinder Grant Site ID: KATERINA Name: [facility] Address: [address] [place] [address] Director: Rajinder Grant [facility] mRNA E6/E7 REFLEX HPV 16,18/45 2021-06-19 18:43:00 Test Item Value Reference Interpretation Comments Range Clinical information None gi niurka (test code = 90089-1) Date of last NONE GIVEN menstrual period (test code = 8665-2) Prev. pap: (test code NONE G IVEN = 68982-4) Prev. bx: (test code NONE GI NIURKA = 59469-2) Source (test code = None giv en ) Statement of adequacy Satisf actory for (test code = 31198-4) evalua tion.Endocervi cony/transformat ion zone componentpresen t.Age and/or menstrua l status not prov ided Interpretation/result Negati ve for : (test code = intraepitheli al 12464-9) lesion or malignancy. Comment (test code = This Pa p test has ) been evaluated with computerassiste d technology. Review PMT, CT(ASCP)CT slide fasteners inspector screening l ocation: (test code = 73318-3) [address], [place] [address] 2 Comment (test code = EXPLANA TORY NOTE: [id number]) The Pap is a screening test for [...] Detected Not Detected Methodo logy: code = 09344-9) Transcriptio n-Mediat ed Amplificatio n This assay dete cts E6/E7 viral messenger RNA ( mRNA) from 14high-ris k HPV types (16,18,31,33,35 ,39,4 5,51,52,56,58,5 9,66, 68). The analyt ical performance characteristics of thisassay have been determined by DoublePositive.The modifications h ave not been cleare d or approvedby the FDA. This assay has been validated pursu antto the [place] regula tions and is used forclinical purposes. For additional information, pl ease refer tohttp://educat ion.q [employer]/ faq/KHY314t2(Th is link if provide d for information/edu catio nal purposes on ly.) RAC (test code = RAC) Performing Organization Information: Site ID: IG Name: [email or web address] Address: [address] [place] [phone] Director: Dr. Rajinder Grant Site ID: RGA Name: [email or web address] Address: [address] [place] [phone] Director: Rajinder Grant [facility] WITH REFLEX TO [id number] 09:37:00 Test Item Value Reference Interpretation Comments Range Color, UA (test code YELLOW YELLOW = 5778-6) Appearance (test CLEAR CLEAR code = 5767-9) Specific gravity, 1.001-1.035 urine (test code = 5811-5) pH, urine (test code 5.0-8.0 = 5803-2) Glucose, urine (test NEGATIVE NEGATIVE code = 44631-4) Bilirubin, UA (test NEGATIVE NEGATIVE code = 5770-3) Ketones, UA (test NEGATIVE NEGATIVE code = 2514-8) Occult blood, urine NEGATIVE NEGATIVE (test code = 5794-3) Protein, UA (test NEGATIVE NEGATIVE code = 72317-4) Nitrite, UA (test NEGATIVE NEGATIVE code = [...] code = NONE SEEN See_Comment [Autom ated 23835-0) message] The sy stem which generated this result transmitted reference range : < OR = 2 /HPF. Th e reference range was not used to interpret this result as normal/abnormal . Squamous epithelial NONE SEEN See_Comment [Automa aydin cells, UA (test code message ] The system = 87661-8) which generated this result transmitted reference range [...] URINE, code = 630-4) ROUTINE Micro Number: [id number] Test Status: Fi nal Specimen Source [...] = Performing RAC) Organization Information: Site ID: Rd Name: [facility] Address: [address] [place] [address] Director: Rajinder Grant Lab Interpretation Abnormal (test code = 60689-8) [facility] TO [id number] 09:37:00 Test Item Value Reference Interpretation Comments Range Color, UA (test code YELLOW YELLOW = 5778-6) Appearance (test CLEAR CLEAR code = 5767-9) Specific gravity, 1.001-1.035 urine (test code = 5811-5) pH, urine (test code 5.0-8.0 = 5803-2) Glucose, urine (test NEGATIVE NEGATIVE code = 30349-2) Bilirubin, UA (test NEGATIVE NEGATIVE code = 5770-3) Ketones, UA (test NEGATIVE NEGATIVE code = 7554-8) Occult blood, urine NEGATIVE NEGATIVE (test code = 5794-3) Protein, UA (test NEGATIVE NEGATIVE code = 06301-3) Nitrite, UA (test NEGATIVE NEGATIVE code = [...] code = NONE SEEN See_Comment [Autom ated 46319-6) message] The sy stem which generated this result transmitted reference range : < OR = 2 /HPF. Th e reference range was not used to interpret this result as normal/abnormal . Squamous epithelial NONE SEEN See_Comment [Automa aydin cells, UA (test code message ] The system = 18895-3) which generated this result transmitted reference range [...] URINE, code = 630-4) ROUTINE Micro Number: [id number] Test Status: Fi nal Specimen Source [...] RAC) Organization Information: Site ID: RGA [facility] Address: [address] [place] [address] Director: Rajinder Grant Lab Interpretation Abnormal (test code = 34185-0) [facility] WITH REFLEX TO [id number] 09:37:00 Test Item Value Reference Interpretation Comments Range Color, UA (test code YELLOW YELLOW = 5778-6) Appearance (test CLEAR CLEAR code = 5767-9) Specific gravity, 1.001-1.035 urine (test code = 5811-5) pH, urine (test code 5.0-8.0 = 5803-2) Glucose, urine (test NEGATIVE NEGATIVE code = 72903-8) Bilirubin, UA (test NEGATIVE NEGATIVE code = 5770-3) Ketones, UA (test NEGATIVE NEGATIVE code = 2514-8) Occult blood, urine NEGATIVE NEGATIVE (test code = 5794-3) Protein, UA (test NEGATIVE NEGATIVE code = 21696-3) Nitrite, UA (test NEGATIVE NEGATIVE code = [...] code = NONE SEEN See_Comment [Autom ated 79818-2) message] The sy stem which generated this result transmitted reference range : < OR = 2 /HPF. Th e reference range was not used to interpret this result as normal/abnormal . Squamous epithelial NONE SEEN See_Comment [Automa aydin cells, UA (test code message ] The system = 10582-4) which generated this result transmitted reference range [...] URINE, code = 630-4) ROUTINE Micro Number: [id number] Test Status: Fi nal Specimen Source [...] RAC) Organization Information: Site ID: RGA Name: [facility] Address: [address] [place] [address] Director: Rajinder Grant Lab Interpretation Abnormal (test code = 51873-3) [facility] REFLEX TO [id number] 09:37:00 Test Item Value Reference Interpretation Comments Range Color, UA (test code YELLOW YELLOW = 5778-6) Appearance (test CLEAR CLEAR code = 5767-9) Specific gravity, 1.001-1.035 urine (test code = 5811-5) pH, urine (test code 5.0-8.0 = 5803-2) Glucose, urine (test NEGATIVE NEGATIVE code = 40276-1) Bilirubin, UA (test NEGATIVE NEGATIVE code = 5770-3) Ketones, UA (test NEGATIVE NEGATIVE code = 2514-8) Occult blood, urine NEGATIVE NEGATIVE (test code = 5794-3) Protein, UA (test NEGATIVE NEGATIVE code = 23673-2) Nitrite, UA (test NEGATIVE NEGATIVE code = [...] code = NONE SEEN See_Comment [Autom ated 23534-8) message] The sy stem which generated this result transmitted reference range : < OR = 2 /HPF. Th e reference range was not used to interpret this result as normal/abnormal . Squamous epithelial NONE SEEN See_Comment [Automa aydin cells, UA (test code message ] The system = 85533-9) which generated this result transmitted reference range [...] URINE, code = 630-4) ROUTINE Micro Number: [id number] 0 Test Status: Fi nal Specimen Source : Urine Specimen Quality: Adequa te Result: 1,000-9 ,000 CFU/ML of Group B Streptococcus isolated Beta-hemolytic streptococci ar e predictably susceptible to Penicillin and other beta-lact ams. Susceptibility testing not routinely performed. Plerd se contact the laboratory with in 3 [...] RAC) Organization Information: Site ID: BEBA Name: [facility] Address: [address] [place] [address] Director: Rajinder Grant Lab Interpretation Abnormal (test code = 15011-8) [facility] REFLEX TO [id number] 09:37:00 Test Item Value Reference Interpretation Comments Range Color, UA (test code YELLOW YELLOW = 5778-6) Appearance (test CLEAR CLEAR code = 5767-9) Specific gravity, 1.001-1.035 urine (test code = 5811-5) pH, urine (test code 5.0-8.0 = 5803-2) Glucose, urine (test NEGATIVE NEGATIVE code = 09426-4) Bilirubin, UA (test NEGATIVE NEGATIVE code = 5770-3) Ketones, UA (test NEGATIVE NEGATIVE code = 2514-8) Occult blood, urine NEGATIVE NEGATIVE (test code = 5794-3) Protein, UA (test NEGATIVE NEGATIVE code = 38242-3) Nitrite, UA (test NEGATIVE NEGATIVE code = [...] code = NONE SEEN See_Comment [Autom ated 83695-7) message] The sy stem which generated this result transmitted reference range : < OR = 2 /HPF. Th e reference range was not used to interpret this result as normal/abnormal . Squamous epithelial NONE SEEN See_Comment [Automa aydin cells, UA (test code message ] The system = 78366-5) which generated this result transmitted reference range [...] URINE, code = 630-4) ROUTINE Micro Number: [id number] Test Status: Fi nal Specimen Source [...] RAC) Organization Information: Site ID: RGA Name: [facility] Address: [address] [place] [address] Director: Rajinder Grant Lab Interpretation Abnormal (test code = 66743-8) [facility] REFLEX TO [id number] 09:37:00 Test Item Value Reference Interpretation Comments Range Color, UA (test code YELLOW YELLOW = 5778-6) Appearance (test CLEAR CLEAR code = 5767-9) Specific gravity, 1.001-1.035 urine (test code = 5811-5) pH, urine (test code 5.0-8.0 = 5803-2) Glucose, urine (test NEGATIVE NEGATIVE code = 61134-3) Bilirubin, UA (test NEGATIVE NEGATIVE code = 5770-3) Ketones, UA (test NEGATIVE NEGATIVE code = 2514-8) Occult blood, urine NEGATIVE NEGATIVE (test code = 5794-3) Protein, UA (test NEGATIVE NEGATIVE code = 13318-6) Nitrite, UA (test NEGATIVE NEGATIVE code = [...] code = NONE SEEN See_Comment [Autom ated 40850-6) message] The sy stem which generated this result transmitted reference range : < OR = 2 /HPF. Th e reference range was not used to interpret this result as normal/abnormal . Squamous epithelial NONE SEEN See_Comment [Automa aydin cells, UA (test code message ] The system = 10152-4) which generated this result transmitted reference range [...] URINE, code = 630-4) ROUTINE Micro Number: [id number] Test Status: Fi nal Specimen Source [...] ion. If this patient is , johana e refer to ACOG guidelines for appropriate screening and management of women. Comment: Erythromycin an d clindamycin are not recommended fo r treatment of urinary tract infections, but clindamycin may be useful for treatment in penicillin dusty rgic patients for rectovaginal colonization or for intrapartum prophylaxis if indicated. RAC (test code = Performing RAC) Organization Information: Site ID: RGA [facility] Address: [address] [place] [phone] Director: Rajinder Grant Lab Interpretation Abnormal (test code = 91799-9) [facility] urinalysis [id number] 18:20:00 Test Item Value Reference Range Interpretation Comments Color urine, POC (test Straw code = 7664529) Clarity urine, POC (test Clear code = 9076554) Glucose urine, POC (test Negative Negative code = 5626129) Bilirubin urine, POC Negative Negative (test code = 9817093) Ketones urine, POC (test Negative Negative code = 6336229) Specific gravity urine, 1.005-1.030 POC (test code = 8398280) Blood urine, POC (test Trace Negative A code = 5714212) pH urine, POC (test code See_Comment [A utomated message] = 4657693) The system Iunika[employer] h generated this result transmitted ref erence range: 5.0, 5.5 , 6.0, 6.5, 7.0, 7.5, 8.0, 8.5. The refere nce range was not u sed to interpret this result as normal/abnor mal. Protein urine, POC (test Negative Negative code = 3546895) Urobilinogen urine, POC <2.0 See_Comment [Au tomated message] (test code = 3040859) The sy stem which generated this result transmitted ref erence range: <=2.0. T he reference range was not used to int erpret this result as normal/abnormal . Nitrite urine, POC (test Negative Negative code = 5093210) Leukocyte esterase Negative Negative urine, POC (test code = 7369420) Lab Interpretation (test Abnormal code = 76245-3) [facility] urinalysis [id number] 18:20:00 Test Item Value Reference Range Interpretation Comments Color urine, POC (test Straw code = 9803471) Clarity urine, POC (test Clear code = 1218529) Glucose urine, POC (test Negative Negative code = 3117852) Bilirubin urine, POC Negative Negative (test code = 0812607) Ketones urine, POC (test Negative Negative code = 6702295) Specific gravity urine, 1.005-1.030 POC (test code = 8321227) Blood urine, POC (test Trace Negative A code = 4667885) pH urine, POC (test code See_Comment [A utomated message] = 4154700) The system Iunika[employer] h generated this result transmitted ref erence range: 5.0, 5.5 , 6.0, 6.5, 7.0, 7.5, 8.0, 8.5. The refere nce range was not u sed to interpret this result as normal/abnor mal. Protein urine, POC (test Negative Negative code = 8958711) Urobilinogen urine, POC <2.0 See_Comment [Au tomated message] (test code = 2750847) The sy stem which generated this result transmitted ref erence range: <=2.0. T he reference range was not used to int erpret this result as normal/abnormal . Nitrite urine, POC (test Negative Negative code = 1187700) Leukocyte esterase Negative Negative urine, POC (test code = 3551383) Lab Interpretation (test Abnormal code = 32947-6) [facility] urinalysis [id number] 18:20:00 Test Item Value Reference Range Interpretation Comments Color urine, POC (test Straw code = 7166028) Clarity urine, POC (test Clear code = 4191423) Glucose urine, POC (test Negative Negative code = 1794923) Bilirubin urine, POC Negative Negative (test code = 4597036) Ketones urine, POC (test Negative Negative code = 9389096) Specific gravity urine, 1.005-1.030 POC (test code = 4414991) Blood urine, POC (test Trace Negative A code = 7536278) pH urine, POC (test code See_Comment [A utomated message] = 3452527) The system [employer] generated this result transmitted ref erence range: 5.0, 5.5 , 6.0, 6.5, 7.0, 7.5, 8.0, 8.5. The refere nce range was not u sed to interpret this result as normal/abnor mal. Protein urine, POC (test Negative Negative code = 1390865) Urobilinogen urine, POC <2.0 See_Comment [Au tomated message] (test code = 8346519) The sy stem which generated this result transmitted ref erence range: <=2.0. T he reference range was not used to int erpret this result as normal/abnormal . Nitrite urine, POC (test Negative Negative code = 2617115) Leukocyte esterase Negative Negative urine, POC (test code = 3592474) Lab Interpretation (test Abnormal code = 56965-2) [facility] urinalysis [id number] 18:20:00 Test Item Value Reference Range Interpretation Comments Color urine, POC (test Straw code = 4032659) Clarity urine, POC (test Clear code = 7103844) Glucose urine, POC (test Negative Negative code = 5856154) Bilirubin urine, POC Negative Negative (test code = 8741213) Ketones urine, POC (test Negative Negative code = 9304216) Specific gravity urine, 1.005-1.030 POC (test code = 5653803) Blood urine, POC (test Trace Negative A code = 5097787) pH urine, POC (test code See_Comment [A utomated message] = 7323879) The system [employer] generated this result transmitted ref erence range: 5.0, 5.5 , 6.0, 6.5, 7.0, 7.5, 8.0, 8.5. The refere nce range was not u sed to interpret this result as normal/abnor mal. Protein urine, POC (test Negative Negative code = 8052831) Urobilinogen urine, POC <2.0 See_Comment [Au tomated message] (test code = 2008638) The sy stem which generated this result transmitted ref erence range: <=2.0. T he reference range was not used to int erpret this result as normal/abnormal . Nitrite urine, POC (test Negative Negative code = 1136966) Leukocyte esterase Negative Negative urine, POC (test code = 0785693) Lab Interpretation (test Abnormal code = 35011-8) [facility] urinalysis [id number] 18:20:00 Test Item Value Reference Range Interpretation Comments Color urine, POC (test Straw code = 4298770) Clarity urine, POC (test Clear code = 1223528) Glucose urine, POC (test Negative Negative code = 1965375) Bilirubin urine, POC Negative Negative (test code = 4964658) Ketones urine, POC (test Negative Negative code = 5813590) Specific gravity urine, 1.005-1.030 POC (test code = 1236606) Blood urine, POC (test Trace Negative A code = 3370768) pH urine, POC (test code See_Comment [A utomated message] = 3406029) The system Intell[employer] h generated this result transmitted ref erence range: 5.0, 5.5 , 6.0, 6.5, 7.0, 7.5, 8.0, 8.5. The refere nce range was not u sed to interpret this result as normal/abnor mal. Protein urine, POC (test Negative Negative code = 7573388) Urobilinogen urine, POC <2.0 See_Comment [Au tomated message] (test code = 8957572) The sy stem which generated this result transmitted ref erence range: <=2.0. T he reference range was not used to int erpret this result as normal/abnormal . Nitrite urine, POC (test Negative Negative code = 0304639) Leukocyte esterase Negative Negative urine, POC (test code = 6624904) Lab Interpretation (test Abnormal code = 40298-2) [facility] urinalysis [id number] 18:20:00 Test Item Value Reference Range Interpretation Comments Color urine, POC (test Straw code = 0313817) Clarity urine, POC (test Clear code = 3833950) Glucose urine, POC (test Negative Negative code = 0675117) Bilirubin urine, POC Negative Negative (test code = 0864849) Ketones urine, POC (test Negative Negative code = 9856139) Specific gravity urine, 1.005-1.030 POC (test code = 0402658) Blood urine, POC (test Trace Negative A code = 5354592) pH urine, POC (test code See_Comment [A utomated message] = 6148153) The system Iunikaic h generated this result transmitted ref erence range: 5.0, 5.5 , 6.0, 6.5, 7.0, 7.5, 8.0, 8.5. The refere nce range was not u sed to interpret this result as normal/abnor mal. Protein urine, POC (test Negative Negative code = 6738273) Urobilinogen urine, POC <2.0 See_Comment [Au tomated message] (test code = 9753973) The sy stem which generated this result transmitted ref erence range: <=2.0. T he reference range was not used to int erpret this result as normal/abnormal . Nitrite urine, POC (test Negative Negative code = 0304537) Leukocyte esterase Negative Negative urine, POC (test code = 2837772) Lab Interpretation (test Abnormal code = 58672-9) [facility] (COVID-19) RNA [Presence] in Respiratory specimen by LATESHA with probe [id number] 09:55:01 Test Item Value Reference Range Interpretation Comments SARS-CoV-2 (COVID-19) RNA Not detected Not-Detected [Presence] in Respiratory specimen by LATESHA with probe detection (test code = 84998-8) Whether patient is employed in a healthcare setting (test code = 95911-5) Whether the patient has symptoms related to condition of interest (test code = 45332-2) Patient was hospitalized because of this condition (test code = 63402-7) Whether the patient was admitted to intensive care unit (ICU) for condition of interest (test code = 85975-9) Whether patient resides in a congregate care setting (test code = 07226-8) [facility] RNA [Presence] in Respiratory specimen by LATESHA with probe [id number] 03:07:44 Test Item Value Reference Range Interpretation Comments SARS-CoV-2 (COVID-19) RNA Not detected Not-Detected [Presence] in Respiratory specimen by LATESHA with probe detection (test code = 05463-2) Whether patient is employed in a healthcare setting (test code = 83810-2) Whether the patient has symptoms related to condition of interest (test code = 35730-4) Patient was hospitalized because of this condition (test code = 79843-0) Whether the patient was admitted to intensive care unit (ICU) for condition of interest (test code = 46656-0) Whether patient resides in a congregate care setting (test code = 48116-4) [facility] (COVID-19) RNA [Presence] in Respiratory specimen by LATESHA with probe [id number] 02:34:50 Test Item Value Reference Range Interpretation Comments SARS-CoV-2 (COVID-19) RNA Not detected Not-Detected [Presence] in Respiratory specimen by LATESHA with probe detection (test code = 84974-1) Whether patient is employed in a healthcare setting (test code = 64201-4) Whether the patient has symptoms related to condition of interest (test code = 89246-9) Patient was hospitalized because of this condition (test code = 67659-7) Whether the patient was admitted to intensive care unit (ICU) for condition of interest (test code = 39861-1) Whether patient resides in a congregate care setting (test code = 40594-5) [facility]-CoV-2 (COVID-19) RNA [Presence] in Respiratory specimen by LATESHA with probe [id number] 22:46:50 Test Item Value Reference Range Interpretation Comments SARS-CoV-2 (COVID-19) RNA Not detected Not-Detected [Presence] in Respiratory specimen by LATESHA with probe detection (test code = 15506-8) [facility]-CoV-2 (COVID-19) RNA [Presence] in Respiratory specimen by LATESHA with probe [id number] 10:19:38 Test Item Value Reference Range Interpretation Comments SARS-CoV-2 (COVID-19) RNA Not detected Not-Detected [Presence] in Respiratory specimen by LATESHA with probe detection (test code = 10136-3) [facility]-CoV-2 (COVID-19) RNA [Presence] in Respiratory specimen by LATESHA with probe [id number] 00:17:03 Test Item Value Reference Range Interpretation Comments SARS-CoV-2 (COVID-19) RNA Not detected Not-Detected [Presence] in Respiratory specimen by LATESHA with probe detection (test code = 00662-2) [facility] RNA [Presence] in Respiratory specimen by LATESHA with probe [id number] 00:59:15 Test Item Value Reference Range Interpretation Comments SARS-CoV-2 (COVID-19) RNA Not detected Not-Detected [Presence] in Respiratory specimen by LATESHA with probe detection (test code = 77609-7) [facility] OW2018-01-18 08:12:00 Test Item Value [...] PELVIS WITHOUT CONTRAST, RENAL STONE PROTOCOL:Location code: [id number] HISTORY: Flank painCOMPARISON: CT abdomen and pelvis [...] Range Interpretation Comments COLOR (test code = [place] YELLOW A COLU) CLARITY (test code = [...] 11:03:05CT abdomen and pelvis with contrastLocation Code: [id number] HISTORY: Lower abdominal painCOMPARISON: NoneTechnique: Helical CT [...]
--- NOTE | 2022-04-23 15:41 | RAD REPORT ---
EXAM DESCRIPTION: RAD - Chest Single View - 04/23/2022 3:31 pm CLINICAL HISTORY: CHEST PAIN COMPARISON: Chest Single View dated 04/15/2022; Chest Single View dated 03/05/2022; Chest Single View dated 02/24/2022 FINDINGS: Lines: None. Lungs: No evidence of edema or pneumonia. Pleural: No significant pleural effusions or pneumothorax. Cardiac: The heart size is within normal limits. Mediastinum: Within normal limits. Bones: No acute fractures. Other: None IMPRESSION: No acute cardiopulmonary disease.
[2022-04-23] MEDS ORDERED: KETOROLAC 30 MG/ML INJ ONE ×2 (16:02→20:11)
[2022-04-23] MEDS ORDERED: LORazepam 2 MG/ML VIAL ONE (16:02)
[2022-04-23 16:30] LABS: Absolute Lymphocytes (CBC) 1.8 K/uL (0.7-4.9); Hematocrit 44.6 % (36.0-45.0); Lymphocytes % 20.7 % (15.3-44.8); MCV 90.5 fL (80-100); MPV 8.1 fL (7.6-11.3); RBC Red Blood Cell Count 4.93 M/uL (3.86-4.86)
[2022-04-23 16:31] LABS: Urine Blood Trace-intact (Negative); Urine Glucose Negative (Negative); Urine Protein Negative (Negative); Urine pH 6.5 (5.0-7.0)
[2022-04-23 16:33] LABS: Protime INR 1.02
[2022-04-23 16:58] LABS: Barbiturates NEGATIVE (NEGATIVE); Benzodiazepines NEGATIVE (NEGATIVE); Cocaine NEGATIVE (NEGATIVE); METHAMPHETAM NEGATIVE (NEGATIVE); Methadone NEGATIVE (NEGATIVE); Opiates NEGATIVE (NEGATIVE); Phencyclidine NEGATIVE (NEGATIVE); THC Cannibis NEGATIVE (NEGATIVE)
[2022-04-23 17:01] LABS: Albumin 4.5 g/dL (3.4-5.0); Bilirubin Direct 0.1 mg/dL (0-0.2); Bilirubin Total 0.3 mg/dL (0.2-1.0); Magnesium 2.3 mg/dL (1.6-2.4); Potassium 4.1 mmol/L (3.5-5.1); Protein, Total 8.3 g/dL (6.4-8.2); Troponin High Sensitivity 4.5 pg/mL (<58.9)
[2022-04-23] MEDS ORDERED: MORPHINE 2 MG/ML SYR ONE ×2 (17:01→20:10)
--- NOTE | 2022-04-23 18:04 | RAD REPORT ---
EXAM DESCRIPTION: CTAngio Aorta For Dissection - 04/23/2022 5:42 pm CLINICAL HISTORY: chest pain, back pain COMPARISON: No comparisons TECHNIQUE: CTA of the chest, abdomen, and pelvis was performed.MIPs were created. All CT scans are performed using dose optimization technique as appropriate and may include automated exposure control or mA/KV adjustment according to patient size. FINDINGS: Thorax: Chest Wall: No abnormal mass Lungs: No acute abnormality. Pleura: No effusions or pneumothorax. Alexa/Mediastinum: No lymphadenopathy. Aorta/Pulmonary Arteries: Unremarkable Heart: Normal size. Abdomen/Pelvis: Liver: No acute abnormality or suspicious lesions. Biliary: No biliary ductal dilatation. Stomach: No significant focal abnormality. Duodenum: No significant focal abnormality. Pancreas: No significant abnormality. Spleen: No significant abnormality. Adrenal: No suspicious lesions. Kidney/ureter: No hydronephrosis. No renal calculi. Retroperitoneum: No retroperitoneal adenopathy. Vascular: No aneurysm. Bowel: No significant focal abnormality. Peritoneum: No ascites or free air. Bladder: Grossly unremarkable. Reproductive: No adnexal masses. Bones: No acute fracture. Other: n/a IMPRESSION: No acute findings within the chest, abdomen, or pelvis. Specifically, no evidence of aor tic aneurysm or dissection. No pulmonary embolus.
--- NOTE | 2022-04-23 18:40 | EDPHYS ---
Physician Documentation [facility] Name: Fany Meza Age: 51 yrs Sex: Female : 1970 Arrival Date: 04/23/2022 Time: 14:50 Bed 5 Private MD: Sukhdev Grant Atiq ED Physician Nigel Knight HPI: 04/23 15:20 This 51 yrs old Female presents to ER via Ambulatory with complaints of Chest Pain, cp Back Pain. 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 After radiation I no longer had tw5 periods" Historical: - Allergies: 14:57 No Known Allergies; aa5 - Home Meds: 19:52 amlodipine 5 mg tab 1 tab once daily [Active]; tw5 - PMHx: 14:57 cervical cancer; Hep C , in remission; Hypertensive disorder; aa5 - PSHx: 14:57 section; neck; aa5 - Immunization history:: Adult Immunizations unknown. - Social history:: Smoking status: Patient reports the use of cigarette tobacco products, 3 cigarettes a day . ROS: 15:25 Constitutional: Negative for body aches, chills, fever, poor PO intake. cp 15:25 Cardiovascular: Positive for chest pain, Negative for edema, palpitations. cp 15:25 Respiratory: Negative for cough, shortness of breath, wheezing. Exam: 15:00 ECG was reviewed by the Attending Physician. cp Vital Signs: 14:55 BP 135 / 93; Pulse 83; Resp 18 S; Temp 97.7(TE); Pulse Ox 98% on R/A; Weight 81.19 kg aa5 (R); Height 5 ft. 4 in. (162.56 cm) (R); 16:30 BP 116 / 71; Pulse 61; Resp 17 S; Pulse Ox 96% on R/A; Pain 10/10; kc6 17:15 BP 106 / 70; Pulse 56; Resp 17 S; Pulse Ox 96% on R/A; Pain 7/10; kc6 18:30 BP 116 / 76; Pulse 57; Resp 14 S; Pulse Ox 95% on R/A; jl7 19:47 BP 125 / 77; Pulse 65; Resp 18; Temp 97.7; Pulse Ox 99% ; Pain 8/10; tw5 14:55 Body Mass Index 30.72 (81.19 kg, 162.56 cm) aa5 MDM: 15:14 Patient medically screened. stephen 04/23 15:18 Order name: Basic Metabolic Panel; Complete Time: 17:14 cp 04/23 17:14 Interpretation: Normal except: GFR 84. cp 04/23 15:18 Order name: CBC with Diff; Complete Time: 16:36 cp 04/23 16:36 Interpretation: Normal except: RBC 4.93; HGB 15.2. cp 04/23 15:18 Order name: D-Dimer; Complete Time: 16:36 cp 04/23 15:18 Order name: LFT's; Complete Time: 17:14 cp 04/23 17:14 Interpretation: Normal except: TP 8.3; GLOB 3.8. cp 04/23 15:18 Order name: Magnesium; Complete Time: 17:14 cp 04/23 15:18 Order name: NT PRO-BNP; Complete Time: 17:14 cp 04/23 15:18 Order name: PT-INR; Complete Time: 16:36 cp 04/23 15:18 Order name: Troponin HS; Complete Time: 17:14 cp 04/23 17:15 Interpretation: Troponin HS 4.5; Reviewed. cp 04/23 15:19 Order name: UDS; Complete Time: 17:14 cp 04/23 17:15 Interpretation: Reviewed. cp 04/23 16:32 Order name: Urine Dipstick-Ancillary; Complete Time: 16:36 EDMS 04/23 16:36 Interpretation: Normal except: UBLD Trace-intact. cp 04/23 20:11 Order name: SARS RAPID cp 04/23 21:54 Order name: SARS-COV-2 Antigen Rapid EDMS 04/23 22:33 Order name: Troponin High Sensitivity EDMS 04/24 03:12 Order name: CBC with Automated Diff EDMS 04/23 15:18 Order name: XRAY Chest (1 view); Complete Time: 16:11 cp 04/23 16:11 Interpretation: Report review. cp 04/23 15:18 Order name: EKG; Complete Time: 15:18 cp 04/23 16:39 Order name: CT Aorta for Dissection; Complete Time: 18:12 cp 04/23 18:13 Interpretation: Report reviewed. cp 04/24 03:39 Order name: Basic Metabolic Panel EDMS 04/24 03:39 Order name: Phosphorus EDMS 04/24 03:39 Order name: Troponin High Sensitivity EDVT 04/24 03:39 Order name: Lipid Profile EDVT 04/24 03:39 Order name: Magnesium EDVT 04/24 03:39 Order name: Thyroid Stimulating Hormone EDVT 04/23 15:18 Order name: Cardiac monitoring; Complete Time: 15:48 cp 04/23 15:18 Order name: EKG - Nurse/Tech; Complete Time: 16:24 cp 04/23 15:18 Order name: IV Saline Lock; Complete Time: 16:13 cp 04/23 15:18 Order name: Labs collected and sent; Complete Time: 16:13 cp 04/23 15:18 Order name: O2 Per Protocol; Complete Time: 15:48 cp 04/23 15:18 Order name: O2 Sat Monitoring; Complete Time: 15:48 cp 04/23 15:18 Order name: Urine Dipstick-Ancillary (obtain specimen); Complete Time: 16:35 cp 04/23 15:18 Order name: Urine Test (obtain specimen); Complete Time: 16:35 cp 04/24 17:42 Order name: Diet Regular; Complete Time: 17:43 eb EC:00 Rate is 73 beats/min. Rhythm is regular. NC interval is normal. QRS interval is normal. cp QT interval is normal. T waves are Inverted in leads III, aVR. Interpreted by me. Reviewed by me. Administered Medications: 16:13 Drug: Ketorolac 15 mg Route: IVP; Site: right antecubital; kc6 16:55 Follow up: Response: No adverse reaction; Pain is decreased; RASS: Alert and Calm (0) kc6 16:13 Drug: Ativan (LORazepam) 0.5 mg Route: IVP; Site: right antecubital; kc6 16:55 Follow up: Response: No adverse reaction; Anxiety decreased kc6 17:01 Drug: morphine 2 mg Route: IVP; Infused Over: 4 mins; Site: right antecubital; kc6 18:01 Follow up: Response: No adverse reaction; Pain is unchanged, physician notified; RASS: jl7 Alert and Calm (0) 18:06 Drug: morphine 2 mg Route: IVP; Infused Over: 4 mins; Site: right antecubital; kc6 18:54 Follow up: Response: No adverse reaction; Pain is unchanged, physician notified; RASS: kc6 Alert and Calm (0) 20:13 Drug: morphine 2 mg Route: IVP; Infused Over: 4 mins; Site: right antecubital; kd3 04/24 08:36 Follow up: Response: No adverse reaction bp 04/23 20:13 Drug: Ketorolac 15 mg Route: IVP; Site: right antecubital; kd3 04/24 08:36 Follow up: Response: No adverse reaction bp 04/23 20:13 Drug: Flexeril (cyclobenzaprine) 10 mg Route: PO; kd3 04/24 08:37 Follow up: Response: No adverse reaction bp Disposition Summary: 04/23/22 18:40 Hospitalization Ordered Hospitalization Status: Observation cp Provider: Chase Rodriguez cp Condition: Stable cp Problem: new cp Symptoms: have improved cp Bed/Room Type: Standard cp Location: [facility] ER HOLD(04/23/22 19:31) dw Room Assignment: ERHOLD-(04/23/22 19:31) dw Diagnosis - Chest pain, unspecified cp Discharge Instructions: - Discharge Summary Sheet eb Forms: - Medication Reconciliation Form cp - SBAR form cp Signatures: Dispatcher [employer] Carmel Deng RN RN Nigel Dunaway MD MD cha Calderon, Audri RN RN aa5 Nigel Oliver PA PA cp Wood, Tiffany tw5 Jacqui Fajardo RN RN kd3 Yanci Zuñiga RN RN kc6 Farhana Schultz PA-C PARachna barrios4 Jing Jacobson RN jl7 Roger Blakely RN bp Corrections: (The following items were deleted from the chart) 04/23 15:25 15:18 This 51 yrs old Female presents to ER via Ambulatory with complaints of Chest cp Pain, Back Pain. cp 19: 18:40 Telemetry/MedSurg (observation) cp dw 19: 18:40 cp dw
--- NOTE | 2022-04-23 18:40 | ER ---
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 pt c/o left sided chest pain radiating down left arm and left scapular area. Reports abnormal stress test 1 month ago. Coronavirus screen: At this time, the client does not indicate any symptoms associated with coronavirus-19. Ebola Screen: Patient denies travel to an Ebola-affected area in the 21 days before illness onset. Initial Sepsis Screen: Does the patient meet any 2 criteria? No. Patient's initial sepsis screen is negative. Does the patient have a suspected source of infection? No. Patient's initial sepsis screen is negative. Risk Assessment: Do you want to hurt yourself or someone else? Patient reports no desire to harm self or others. Onset of symptoms was April 2021. 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 After radiation I no longer had tw5 periods" Historical: - Allergies: 14:57 No Known Allergies; aa5 - Home Meds: 19:52 amlodipine 5 mg tab 1 tab once daily [Active]; tw5 - PMHx: 14:57 cervical cancer; Hep C , in remission; Hypertensive disorder; aa5 - PSHx: 14:57 section; neck; aa5 - Immunization history:: Adult Immunizations unknown. - Social history:: Smoking status: Patient reports the use of cigarette tobacco products, 3 cigarettes a day . Screenin:05 [facility] ED Fall Risk Assessment (Adult) History of falling in the last 3 months, kc6 including since admission No falls in past 3 months (0 pts) Confusion or Disorientation No (0 pts) Intoxicated or Sedated No (0 pts) Impaired Gait No (0 pts) Mobility Assist Device Used No (0 pt) Altered Elimination No (0 pt) Score/Fall Risk Level 0 - 2 = Low Risk Oriented to surroundings, Maintained a safe environment, Educated pt \\T\\ family on fall prevention, incl call for assistance when getting out of bed, Assessed \\T\\ reinforced patient's understanding of fall precautions, Hourly rounding (assess needs \\T\\ fall precautionary measures) done. Abuse screen: Denies threats or abuse. Denies injuries from another. Nutritional screening: No deficits noted. 17:06 Tuberculosis screening: No symptoms or risk factors identified. kc6 Assessment: 16:19 General: Appears in no apparent distress. uncomfortable, Behavior is calm, cooperative, kc6 appropriate for age. Pain: Complains of pain in left scapular area and left breast Pain does not radiate. Pain currently is 10 out of 10 on a pain scale. Quality of pain is described as dull, Pain began gradually, Is intermittent, Alleviated by nothing. Aggravated by increased activity, Noted to be guarding, Also complains of no other associated symptoms. Neuro: Meade Agitation-Sedation Scale (RASS): 0 - Alert and Calm Level of Consciousness is awake, alert, obeys commands, Oriented to person, place, time, situation, Appropriate for age. Cardiovascular: Heart tones S1 S2 present Capillary refill < 3 seconds. Respiratory: Airway is patent Trachea midline Respiratory effort is even, unlabored, Respiratory pattern is regular, symmetrical, Breath sounds are clear bilaterally. GI: No signs and/or symptoms were reported involving the gastrointestinal system. : No signs and/or symptoms were reported regarding the genitourinary system. EENT: No signs and/or symptoms were reported regarding the EENT system. Derm: No signs and/or symptoms reported regarding the dermatologic system. Skin is intact, Skin is pink, warm \\T\\ dry. Musculoskeletal: No signs and/or symptoms reported regarding the musculoskeletal system. Circulation, motion, and sensation intact. Capillary refill < 3 seconds, Range of motion: intact in all extremities. 17:19 Reassessment: Patient appears in no apparent distress at this time. No changes from kc6 previously documented assessment. Patient and/or family updated on plan of care and expected duration. Pain level reassessed. Patient is alert, oriented x 3, equal unlabored respirations, skin warm/dry/pink. 18:07 Reassessment: client stated her pain is still a 7/10. kc6 18:19 Reassessment: Patient appears in no apparent distress at this time. No changes from jl7 previously documented assessment. Patient and/or family updated on plan of care and expected duration. Pain level reassessed. Patient is alert, oriented x 3, equal unlabored respirations, skin warm/dry/pink. 19:47 General: Reports "My back is killing me and I came in for chest pain. The pain is so tw5 bad that I can hardly breath. ". Pain: Pain currently is 7 out of 10 on a pain scale. Vital Signs: 14:55 BP 135 / 93; Pulse 83; Resp 18 S; Temp 97.7(TE); Pulse Ox 98% on R/A; Weight 81.19 kg aa5 (R); Height 5 ft. 4 in. (162.56 cm) (R); 16:30 BP 116 / 71; Pulse 61; Resp 17 S; Pulse Ox 96% on R/A; Pain 10/10; kc6 17:15 BP 106 / 70; Pulse 56; Resp 17 S; Pulse Ox 96% on R/A; Pain 7/10; kc6 18:30 BP 116 / 76; Pulse 57; Resp 14 S; Pulse Ox 95% on R/A; jl7 19:47 BP 125 / 77; Pulse 65; Resp 18; Temp 97.7; Pulse Ox 99% ; Pain 8/10; tw5 14:55 Body Mass Index 30.72 (81.19 kg, 162.56 cm) aa5 ED Course: 14:50 Patient arrived in ED. as 14:50 Sukhdev Grant MD is Private Physician. as 14:55 Arm band placed on Patient placed in an exam room, on a stretcher. aa5 14:57 Triage completed. aa5 15:10 Nigel Oliver PA is PHCP. cp 15:10 Nigel Knight MD is Attending Physician. cp 15:34 XRAY Chest (1 view) In Process Unspecified. EDMS 15:48 Yanci Zuñiga, SCOTTY is Primary Nurse. kc6 16:13 Basic Metabolic Panel Sent. kc6 16:13 CBC with Diff Sent. kc6 16:13 D-Dimer Sent. kc6 16:13 LFT's Sent. kc6 16:13 Magnesium Sent. kc6 16:13 NT PRO-BNP Sent. kc6 16:13 PT-INR Sent. kc6 16:13 Troponin HS Sent. kc6 17:06 Patient has correct armband on for positive identification. Placed in gown. Bed in low kc6 position. Call light in reach. Side rails up X 1. Client placed on continuous cardiac and pulse oximetry monitoring. NIBP monitoring applied. playground monitor on. 17:06 No provider procedures requiring assistance completed. Patient maintains SpO2 kc6 saturation greater than 95% on room air. 17:44 CT Aorta for Dissection In Process Unspecified. EDMS 18:39 Chase Rodriguez is Hospitalizing Provider. cp 19:47 Primary Nurse role handed off by Yanci Zuñiga RN tw5 19:47 Tyra Vega is Primary Nurse. tw5 19:47 Door closed. Noise minimized. Moved to private room. Warm blanket given. Verbal tw5 reassurance given. 19:52 Patient admitted, IV remains in place. tw5 Administered Medications: 16:13 Drug: Ketorolac 15 mg Route: IVP; Site: right antecubital; kc6 16:55 Follow up: Response: No adverse reaction; Pain is decreased; RASS: Alert and Calm (0) kc6 16:13 Drug: Ativan (LORazepam) 0.5 mg Route: IVP; Site: right antecubital; kc6 16:55 Follow up: Response: No adverse reaction; Anxiety decreased kc6 17:01 Drug: morphine 2 mg Route: IVP; Infused Over: 4 mins; Site: right antecubital; kc6 18:01 Follow up: Response: No adverse reaction; Pain is unchanged, physician notified; RASS: jl7 Alert and Calm (0) 18:06 Drug: morphine 2 mg Route: IVP; Infused Over: 4 mins; Site: right antecubital; kc6 18:54 Follow up: Response: No adverse reaction; Pain is unchanged, physician notified; RASS: kc6 Alert and Calm (0) 20:13 Drug: morphine 2 mg Route: IVP; Infused Over: 4 mins; Site: right antecubital; kd3 04/24 08:36 Follow up: Response: No adverse reaction bp 04/23 20:13 Drug: Ketorolac 15 mg Route: IVP; Site: right antecubital; kd3 04/24 08:36 Follow up: Response: No adverse reaction bp 04/23 20:13 Drug: Flexeril (cyclobenzaprine) 10 mg Route: PO; kd3 04/24 08:37 Follow up: Response: No adverse reaction bp Medication: 04/23 19:47 VIS not applicable for this client. tw5 Outcome: 18:40 Decision to Hospitalize by Provider. cp 19:51 Admitted to ER Hold. Please see [facility] for further documentation. tw5 19:51 Condition: stable 19:51 Discharge instructions given to patient, Instructed on the need for admit. 04/24 18:36 Patient left the ED. bp Signatures: Dispatcher [employer] EDMS Pricilla Reyes Audri, RN RN aa5 Nigel Oliver PA PA cp Leal, Jahala, RN RN jl7 Roger Blakely RN RN Tyra Beckwith tw5 Jacqui Fajardo RN RN kd3 Yanci Zuñiga RN RN kc6
--- NOTE | 2022-04-23 19:47 | P.HP ---
Certification for Inpatient Patient admitted to: Observation With expected LOS: <2 Midnights Patient will require the following post-hospital care: None Practitioner: I am a practitioner with admitting privileges, knowledge of patient current condition, hospital course, and medical plan of care. Services: Services provided to patient in accordance with Admission requirements found in Title 42 Section 412.3 of the Code of Federal Regulations Patient History Date of Service: 04/23/22 Reason for admission: Chest Pain History of Present Illness: Patient is a 51 year old female with past medical history of cervical cancer, hypertension, and anxiety who presented to the emergency department with complaints of chest pain and back pain. She reports that she has been experiencing this chest pain for about 1 week now. States it originates in the center of her chest and radiates down her left arm and to her left shoulder blade. Patient reports that she had a "borderline abnormal" exercise stress test and nuclear stress test 1 month ago. 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 Her EKG showed NSR with nonspecific ST abnormality. Troponin negative. CT chest negative for dissection. ED provider wishes to admit patient for observation, ACS rule out. Home medications list reviewed: Yes - Past Medical/Surgical History Diabetic: No -: Hypertension -: Cervical Cancer -: Hepatitis C -: Mitral Valve Prolapse -: Cervical Spine -: Psychosocial/ Personal History: Patient lives at home. She recently moved here from [place]. - Family History Family History: Reviewed- Non-Contributory - Social History Smoking Status: Light Tobacco smoker (1-9 cigarettes/day) Alcohol use: No CD- Drugs: No Caffeine use: Yes Place of Residence: Home Review of Systems Cardiovascular: Chest Pain Musculoskeletal: Back Pain Physical Examination - Vital Signs Temperature: 97.7 F Blood Pressure: 116/76 Pulse: 57 Respirations: 14 Pulse Ox (%): 95 - Physical Exam General: Alert, In no apparent distress HEENT: Atraumatic, PERRLA, EOMI, Sclerae nonicteric Neck: Supple, 2+ carotid pulse no bruit Respiratory: Clear to auscultation bilaterally, Normal air movement Cardiovascular: No edema, Regular rate/rhythm, Normal S1 S2 Gastrointestinal: Normal bowel sounds, No tenderness Musculoskeletal: No tenderness Integumentary: No rashes Neurological: Normal speech, Normal strength at 5/5 x4 extr, Normal tone, Normal affect - Studies Laboratory Data (last 24 hrs) 04/23/22 16:10: PT 11.2, INR 1.02 04/23/22 16:10: WBC 8.60, Hgb 15.2 H, Hct 44.6, Plt Count 288 04/23/22 16:10: Sodium 141, Potassium 4.1, BUN 18, Creatinine 0.84, Glucose 96, Magnesium 2.3, Total Bilirubin 0.3, AST 21, ALT 37, Alkaline Phosphatase 64 Assessment and Plan - Problems (Diagnosis) (1) Chest pain Current Visit: Yes Status: Acute Qualifiers: Chest pain type: unspecified Qualified Code(s): R07.9 - Chest pain, unspecified (2) Hypertension Current Visit: Yes Status: Chronic Qualifiers: Hypertension type: primary hypertension Qualified Code(s): I10 - Essential (primary) hypertension (3) Tobacco abuse Current Visit: Yes Status: Chronic - Plan Patient is admitted for observation, ACS rule out. Initial troponin negative. Trend q6hx2. Cardiology consult. NPO at midnight in case for cath. Echo ordered. Patient reports history of mitral valve prolapsed that has since resolved? Aspirin and atorvastatin daily. Monitor on telemetry. Check lipid panel and TSH. Monitor and replete electrolytes per protocol. Reconcile and continue home medications. Lovenox for VTE prophylaxis. Full code. Discharge Plan: Home Plan to discharge in: 24 Hours - Advance Directives Does patient have a Living Will: No Does patient have a Durable POA for Healthcare: No - Code Status/Comfort Care Code Status Assessed: Yes Code Status: Full Code Critical Care: No Time Spent Managing Pts Care (In Minutes): 50
[2022-04-23 19:50] VITALS: TEMP 97.7
[2022-04-23] MEDS ORDERED: CYCLOBENZAPRINE 10 MG TAB ONE (20:10)
[2022-04-23] MEDS ORDERED: ACETAMINOPHEN 500 MG TAB PO PRN (21:29)
[2022-04-23] MEDS: NA CHLORIDE 0.9% 1,000 ML IV SCH (21:29)
[2022-04-23] MEDS ORDERED: ATORVASTATIN 40 MG TAB PO SCH (21:29)
[2022-04-23] MEDS ORDERED: ONDANSETRON 4 MG/2 ML VIAL IV PRN (21:29)
[2022-04-23] MEDS ORDERED: CYCLOBENZAPRINE 10 MG TAB PO PRN (21:29)
[2022-04-23 21:54] LABS: SARS-CoV-2 Antigen Rapid Res Negative (Negative)
[2022-04-23 22:30] VITALS: BMI 30.5
[2022-04-23] MEDS ORDERED: NA CHLORIDE 0.9% 1,000 ML ONE (23:39)
[2022-04-23] MEDS ORDERED: ATORVASTATIN 20 MG TAB ONE (23:39)
[2022-04-24 03:07] LABS: Absolute Lymphocytes (CBC) 2.5 K/uL (0.7-4.9); Hematocrit 40.4 % (36.0-45.0); Lymphocytes % 38.5 % (15.3-44.8); MCV 91.4 fL (80-100); MPV 8.1 fL (7.6-11.3); RBC Red Blood Cell Count 4.42 M/uL (3.86-4.86)
[2022-04-24 03:32] LABS: Magnesium 2.3 mg/dL (1.6-2.4); Phosphorus 4.2 mg/dL (2.5-4.9); Potassium 4.8 mmol/L (3.5-5.1); Thyroid Stimulating Hormone 2.92 uIU/mL (0.358-3.740); Troponin High Sensitivity 7.1 pg/mL (<58.9)
[2022-04-24] MEDS: MORPHINE 2 MG/ML SYR IV PRN ×2 (04:48→10:45)
[2022-04-24] MEDS ORDERED: MORPHINE 2 MG/ML SYR ONE ×2 (04:53→10:57)
[2022-04-24] MEDS ORDERED: INFLUENZA VACCINE (for 6+ mo) 0.5 ML DOSE IMVAC ONE (08:00)
[2022-04-24] MEDS ORDERED: ENOXAPARIN 40 MG/0.4 ML SQ SCH (09:00)
[2022-04-24] MEDS ORDERED: ASPIRIN EC 81 MG TAB PO SCH (09:00)
[2022-04-24] MEDS: NA CHLORIDE 0.9% 1,000 ML IV SCH (10:49)
--- NOTE | 2022-04-24 10:49 | EKG ---
Test Date: 2022-04-23 Test Time: 14:56:45 Table Worker: DANYELL MEASUREMENT RESULTS: Intervals: Rate: 73 [place]: 124 QRSD: 78 QT: 402 QTc: 442 [place]: P: 63 [place]: 124 QRS: 44 T: 15 INTERPRETIVE STATEMENTS: Normal sinus rhythm Nonspecific ST abnormality Abnormal ECG Compared to ECG 04/15/2022 20:24:42 ST (T wave) deviation now present Electronically Signed On 04-24-22 10:46:39 WET END HELPER by Rich Sprague
[2022-04-24] MEDS ORDERED: CYCLOBENZAPRINE 10 MG TAB ONE (10:58)
[2022-04-24] MEDS ORDERED: NITROGLYCERIN 0.4 MG/TAB SL ONE ×2 (12:00→12:06)
[2022-04-24] MEDS ORDERED: NA CHLORIDE 0.9% 1,000 ML ONE (12:33)
[2022-04-24] MEDS ORDERED: HYDROCODONE/APAP 7.5/325 MG TAB PO ONE (15:11)
[2022-04-24 16:13] VITALS: BP 100/56
--- NOTE | 2022-04-24 18:11 | P.DS ---
Admission Date: 04/23/22 Discharge Date: 04/24/22 Disposition: ROUTINE DISCHARGE Discharge Condition: FAIR Reason for Admission: Chest Pain - Problems (1) Chest pain Status: Acute Qualifiers: Chest pain type: unspecified Qualified Code(s): R07.9 - Chest pain, unspecified (2) Hypertension Status: Chronic Qualifiers: Hypertension type: primary hypertension Qualified Code(s): I10 - Essential (primary) hypertension (3) Tobacco abuse Status: Chronic Brief History of Present Illness: Patient is a 51 year old female with past medical history of cervical cancer, hypertension, and anxiety who presented to the emergency department with complaints of chest pain and back pain. She reported experiencing this chest pain for about 1 week. States it originates in the center of her chest and radiates down her left arm and to her left shoulder blade. Patient reports that she had a "borderline abnormal" exercise stress test and nuclear stress test 1 month ago. 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 Her EKG showed NSR with nonspecific ST abnormality. Troponin negative. CT chest negative for dissection. Patient placed under observation for further management. Hospital Course: Troponin trended negative. Patient had intermittent left shoulder pain and back pain radiating to the chest. She was seen by cardiology Dr. Sprague who considered her chest pain atypical. Dr. Sprague offered the patient the option to stay in the hospital for cardiac cath on Wednesday04/27/2022 or discharge and follow-up with him in the office for arrangement for further outpatient work-up. Patient opted for discharge today. Of note, her pain did not respond to nitroglycerin but improved with opioid. Patient is prescribed aspirin and Plavix. She is bradycardic precluding beta-tabatha. She is also prescribed Lipitor. Patient advised to follow-up with Dr. Sprague within 1 week. Vital Signs/Physical Exam: Temp Pulse Resp BP Pulse Ox 97.7 F 60 14 100/56 L 93 04/23/22 20:54 04/24/22 16:00 04/24/22 16:11 04/24/22 16:00 04/24/22 16:11 Laboratory Data at Discharge: WBC 6.50 K/uL (4.3-10.9) 04/24/22 02:43 Hgb 13.2 g/dL (12.0-15.0) D 04/24/22 02:43 Hct 40.4 % (36.0-45.0) 04/24/22 02:43 Plt Count 252 K/uL (152-406) 04/24/22 02:43 PT 11.2 SECONDS (9.5-12.5) 04/23/22 16:10 INR 1.02 04/23/22 16:10 Sodium 145 mmol/L (136-145) 04/24/22 02:43 Potassium 4.8 mmol/L (3.5-5.1) D 04/24/22 02:43 BUN 21 mg/dL (7-18) H 04/24/22 02:43 Creatinine 0.75 mg/dL (0.55-1.02) 04/24/22 02:43 Glucose 93 mg/dL (74-106) 04/24/22 02:43 Phosphorus 4.2 mg/dL (2.5-4.9) 04/24/22 02:43 Magnesium 2.3 mg/dL (1.6-2.4) 04/24/22 02:43 Total Bilirubin 0.3 mg/dL (0.2-1.0) 04/23/22 16:10 AST 21 U/L (15-37) 04/23/22 16:10 ALT 37 U/L (13-56) 04/23/22 16:10 Alkaline Phosphatase 64 U/L (45-117) 04/23/22 16:10 Triglycerides 155 mg/dL (<150) H 04/24/22 02:43 Cholesterol 185 mg/dL (<200) 04/24/22 02:43 HDL Cholesterol 47 mg/dL (40-60) 04/24/22 02:43 Cholesterol/HDL Ratio 3.94 04/24/22 02:43 Home Medications: Aspirin [Aspirin EC 81 MG] 81 mg PO DAILY #30 tab 04/24/22 Atorvastatin Calcium [Lipitor] 40 mg PO BEDTIME #30 tab 04/24/22 Clopidogrel Bisulfate [Plavix] 75 mg PO DAILY #30 tab 04/24/22 New Medications: Aspirin [Aspirin EC 81 MG] 81 mg PO DAILY #30 tab Atorvastatin Calcium [Lipitor] 40 mg PO BEDTIME #30 tab Clopidogrel Bisulfate [Plavix] 75 mg PO DAILY #30 tab Diet: AHA Activity: Ad francisco Followup: Sukhdev Grant MD [Primary Care Provider] - Rich Sprague MD [ACTIVE - CAN ADMIT] - 1 Week
[2022-04-24 18:48] VITALS: O2SAT 99
--- NOTE | 2022-04-27 07:02 | ECHO ---
HEIGHT: 5 ft 4 in WEIGHT: 178 lb 15.893 oz DATE OF STUDY: 04/24/[address]: Farhana Schultz 2-DIMENSIONAL: YES M.MODE: YES DOPPLER: YES COLOR FLOW: YES TDS: YES PORTABLE: YES DEFINITY: NO BUBBLE STUDY: NO DIAGNOSIS: CHEST PAIN CARDIAC HISTORY: CATHERIZATION: SURGERY: PROSTHETIC VALVE: PACEMAKER: MEASUREMENTS (cm) DIASTOLIC (NORMALS) SYSTOLIC (NORMALS) IVSd 0.7 (0.6-1.2) LA Diam 3.2 (1.9-4.0) LVEF 68% LVIDd 4.7 (3.5-5.7) LVIDs 2.9 (2.0-3.5) %FS 38% LVPWd 1.0 (0.6-1.2) Ao Diam 2.9 (2.0-3.7) 2 DIMENSIONAL ASSESSMENT: RIGHT ATRIUM: NORMAL LEFT ATRIUM: NORMAL RIGHT VENTRICLE: NORMAL LEFT VENTRICLE: NORMAL TRICUSPID VALVE: MILD TR MITRAL VALVE: NORMAL PULMONIC VALVE: NORMAL AORTIC VALVE: NORMAL PERICARDIAL EFFUSION: NONE AORTIC ROOT: NORMAL LEFT VENTRICULAR WALL MOTION: NORMAL DOPPLER/COLOR FLOW: SEE BELOW. COMMENTS: 1. NORMAL LEFT VENTRICULAR EJECTION FRACTION 60-65%. 2. NORMAL WALL MOTION. 3. MILD TRICUSPID REGURGITATION. 4. NORMAL DIASTOLIC FUNCTION. TECHNOLOGIST: Usha AHUJA
== END 2022-04-24 18:23 | disposition home or self-care (01) ==
LOC: ER 14:48 → ERHOLD 19:36
PROVIDERS: ADMIT Internal Medicine; ATTEND Internal Medicine
DX: R07.9 Chest pain, unspecified (principal); R00.1 Bradycardia, unspecified; M25.512 Pain in left shoulder; I10 Essential (primary) hypertension; F17.210 Nicotine dependence, cigarettes, uncomplicated; Z20.822 Contact with and (suspected) exposure to COVID-19
CPT/HCPCS: 93005; 93306; 85025 ×2; 80048 ×2; 36415; 83735 ×2; 84100; 85610; 80061; 85379; 80076; 84443; 81003; 84484 ×3; 83880; 80307; 71275; 74175; 71045; 96375; 96374; 99285; 87811; Q9967; J2270 ×4; J7030 ×2; G0378

== ENCOUNTER 2022-05-21 22:45 | Emergency (ER) | payer OTHER ==
--- OUTSIDE RECORDS SUMMARY | 2022-05-21 23:08 | XMS REPORT | Continuity of Care Document ---
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 1 [facility] -acetaminop 6-21 06-[address] [facility] ([facility]) 00:00: 00:00 [facility]325 mg 00 :00 every 6 l per tablet (six) hours as needed for moderate pain or severe pain for up to 2 days .acute pain. Max Daily Amount: 4 tablets HYDROcodone 2-0 2021- No [id number] 1{tbl} Q6H Take 1 [facility] -acetaminop 6-21 06-[address] [facility] ([facility]) 00:00: 00:00 [facility]325 mg 00 :00 every 6 l per tablet (six) hours as needed for moderate pain or severe pain for up to 2 days .acute pain. Max Daily Amount: 4 tablets HYDROcodone 2022-0 2021- No [id number] 1{tbl} Q6H Take 1 [facility] -acetaminop 6-21 06-[address] [facility] ([facility]) 00:00: 00:00 [facility]325 mg 00 :00 every 6 l per tablet (six) hours as needed for moderate pain or severe pain for up to 2 days .acute pain. Max Daily Amount: 4 tablets HYDROcodone 2-0 2021- No [id number] 1{tbl} Q6H Take 1 [facility] -acetaminop 6-21 06-[address] [facility] ([facility]) 00:00: 00:00 [facility] 5[facility]325 mg 00 :00 every 6 l per tablet (six) hours as needed for moderate pain or severe pain for up to 2 days .acute pain. Max Daily Amount: 4 tablets HYDROcodone 2021-0 2021- [place] [id number] 1{tbl} Q6H Take 1 [facility] -acetaminop 6-21 06-[address] [facility] ([facility]) 00:00: 00:00 [facility]325 mg 00 :00 every 6 l per tablet (six) hours as needed for moderate pain or severe pain for up to 2 days .acute pain. Max Daily Amount: 4 tablets HYDROcodone 2021-0 2021- No 1{tbl} Q6H Take 1 [facility] -acetaminop 6-21 06-[address] [facility] ([facility]) 00:00: 00:00 [facility]325 mg 00 :00 every 6 l per tablet (six) hours as needed for moderate pain or severe pain for up to 2 days .acute pain. Max Daily Amount: 4 tablets HYDROcodone 2021-0 2021- No 1{tbl} Q6H Take 1 [facility] -acetaminop 6-21 06-[address] [facility] ([facility]) 00:00: 00:00 [facility]325 mg 00 :00 every 6 l per tablet (six) hours as needed for moderate pain or severe pain for up to 2 days .acute pain. Max Daily Amount: 4 tablets HYDROcodone 2-0 2021- No 1{tbl} Q6H Take 1 [facility] -acetaminop 6-21 06-[address] [facility] ([facility]) 00:00: 00:00 [facility]325 mg 00 :00 every 6 l per tablet (six) hours as needed for moderate pain or severe pain for up to 2 days .acute pain. Max Daily Amount: 4 tablets HYDROcodone 2-0 2021- No 1{tbl} Q6H Take 1 [facility] -acetaminop 6-21 06-[address] [employer] ([facility]) 00:00: 00:00 [facility]325 mg 00 :00 every 6 l per tablet (six) hours as needed for moderate pain or severe pain for up to 2 days .acute pain. Max Daily Amount: 4 tablets HYDROcodone 2022-0 2022- No [id number] 1{tbl} Q6H Take 1 [facility] -acetaminop 6-21 06-[address] [facility] ([facility]) 00:00: 00:00 [facility]325 mg 00 :00 every 6 l per tablet (six) hours as needed for moderate pain or severe pain for up to 2 days .acute pain. Max Daily Amount: 4 tablets HYDROcodone 2022-0 2022- No [id number] 1{tbl} Q6H Take 1 [facility] -acetaminop 6-21 06-21 tablet by [facility] ([facility]) 00:00: 00:00 [facility] 5-325 mg 00 :00 every 6 l per tablet (six) hours as needed for moderate pain or severe pain for up to 2 days .acute pain. Max Daily Amount: 4 tablets HYDROcodone 2022-0 2022- No [id number] 1{tbl} Q6H Take 1 [facility] -acetaminop 6-21 06-21 tablet by [facility] ([facility]) 00:00: 00:00 [facility]325 mg 00 :00 every 6 l per tablet (six) hours as needed for moderate pain or severe pain for up to 2 days .acute pain. Max Daily Amount: 4 tablets amLODIPine 2022-0 2022- No 5mg QD Take 1 [facility] (NORVASC) 5 -05 20- tablet (5 st mg tablet 00:00: 00:00 [...] QD Take 1 [facility] (NORVASC) 5 09-11-19 tablet (5 st mg tablet 00:00: 00:00 [...] DAILY WITH MEALS meclizine 2021- No 25mg Q.[id number] Take 1 [facility] (ANTIVERT) 08-26-10 [id number] tablet (25 st 25 mg 00:00: 00:00 3D mg total) Hospit a tablet 00 :00 by mouth 3 l (three) times a day as needed for dizziness for up to 30 days. meclizine 2021- No 25mg Q.[id number] Take 1 [facility] (ANTIVERT) 08-26-10 [id number] tablet (25 st 25 mg 00:00: 00:00 3D mg total) Hospit a tablet 00 :00 by mouth 3 l (three) times a day as needed for dizziness for up to 30 days. meclizine 2021- No 25mg Q.[id number] Take 1 [facility] (ANTIVERT) 08-26-10 [id number] tablet (25 st 25 mg 00:00: 00:00 3D mg total) Hospit a tablet 00 :00 by mouth 3 l (three) times a day as needed for dizziness for up to 30 days. meclizine 2021- No 25mg Q.[id number] Take 1 [facility] (ANTIVERT) 08-26-10 [id number] tablet (25 st 25 mg 00:00: 00:00 3D mg total) Hospit a tablet 00 :00 by mouth 3 l (three) times a day as needed for dizziness for up to 30 days. meclizine 2021- No 25mg Q.[id number] Take 1 [facility] (ANTIVERT) 08-26-10 [id number] tablet (25 st 25 mg 00:00: 00:00 3D mg total) Hospit a tablet 00 :00 by mouth 3 l (three) times a day as needed for dizziness for up to 30 days. meclizine 2021- No 25mg Q.[id number] Take 1 [facility] (ANTIVERT) 08-26-10 [id number] tablet (25 st 25 mg 00:00: 00:00 3D mg total) Hospit a tablet 00 :00 by mouth 3 l (three) times a day as needed for dizziness for up to 30 days. meclizine 2021-0 2- No 25mg Q.[id number] Take 1 [facility] (ANTIVERT) 17 0610 [id number] tablet (25 st 25 mg 00:00: 00:00 3D mg total) Hospit a tablet 00 :00 by mouth 3 l (three) times a day as needed for dizziness for up to 30 days. pregabalin 2022-0 2022- No 50mg Q.5D [...] times a day for 60 days. doxycycline 2021-2- No 100mg Take 100 [facility] (VIBRAMYCIN 4-30 [...] a capsule 00 :00 l metroNIDAZO 2021-0 2022- No 500mg Q.5D Take 500 [facility] [...] (two) [place]. [place] [id number] 1{tbl} Q6H Take 1-2 [facility] en-codeine 4-27 05-[address] (TYLENOL 00:00: 04:59 mouth [facility] WITH 00 :00 every 6 l CODEINE #3) (six) 300-30 mg hours as per tablet needed for moderate pain for up to 5 [place]. [place] [id number] 1{tbl} Q6H Take 1-2 [facility] en-codeine 4-27 [...] acetaminoph 1{tbl} Q6H Take 1-2 [facility] en-codeine 4- 05-[address] (TYLENOL 00:00: 04:59 mouth [facility] WITH 00 :00 every 6 l CODEINE #3) (six) 300-30 mg hours as per tablet needed for moderate pain for up to 5 days .acute pain. acetaminoph 1{tbl} Q6H Take 1-2 [facility] en-codeine 4- [...] up to 5 days .acute pain. amoxicillin No [id number] 500mg Q.5D Take 1 [facility] (AMOXIL) 4-14 04-[address] 500 MG 00:00: 04:59 (500 mg Hospita tablet 00 :00 total) by l mouth 2 (two) times a day for 7 days. amoxicillin 2021- No [id number] 500mg Q.5D Take 1 [facility] (AMOXIL) 07-[address] 500 MG 00:00: 04:59 (500 mg Hospita tablet 00 :00 total) by l mouth 2 (two) times a day for 7 days. amoxicillin 2021- No [id number] 500mg Q.5D Take 1 [facility] (AMOXIL) 07-[address] 500 MG 00:00: 04:59 (500 mg [facility]ospita tablet 00 :00 total) by l mouth 2 (two) times a day for 7 days. amoxicillin 2021- No [id number] 500mg Q.5D Take 1 [facility] (AMOXIL) 07-[address] 500 MG 00:00: 04:59 (500 mg [facility]ospita tablet 00 :00 total) by l mouth 2 (two) times a day for 7 days. amoxicillin 2021- No [id number] 500mg Q.5D Take 1 [facility] (AMOXIL) 07-[address] 500 MG 00:00: 04:59 (500 mg [facility]ospita tablet 00 :00 total) by l mouth 2 (two) times a day for 7 days. amoxicillin 2021- No [id number] 500mg Q.5D Take 1 [facility] (AMOXIL) 07-[address] 500 MG 00:00: 04:59 (500 mg Hospita tablet 00 :00 total) by l mouth 2 (two) times a day for 7 days. amoxicillin 2021- No [id number] 500mg Q.5D Take 1 [facility] (AMOXIL) 07-[address] 500 MG 00:00: 04:59 (500 mg Hospita tablet 00 :00 total) by l mouth 2 (two) times a day for 7 days. nicotine 2021- No 1{patch Q24H Place 1 [facility] (Nicoderm 4-13 05-14 } patch on st [...] 4-13 05-14 } patch on st [facility]) 00:00: 04:59 the skin Hospit a mg/24 [...] (two) times a day with meals. ibuprofen 2-0 2022- No 800mg Q6H Take 1 [facility] (ADVIL) 800 -31 07-[address] MG tablet 00:00: 04:59 (800 mg [facility] 00 :00 total) by l mouth every 6 (six) hours as needed for mild pain for up to 30 days. benzonatate 2022-0 2022- No 100mg Q8H Take 1 [facility] (TESSALON) 3-21 -[address] 100 MG 00:00: 04:59 (100 mg Hospita capsule 00 :00 total) by l mouth every 8 (eight) hours for 30 days. ibuprofen 2-0 2022- No 800mg Q6H Take 1 [facility] (ADVIL) 800 3-21 04-[address] MG tablet 00:00: 04:59 (800 mg [facility] 00 :00 total) by l mouth every 6 (six) hours as needed for mild pain for up to 30 days. benzonatate 2022-0 2022- No 100mg Q8H Take 1 [facility] (TESSALON) 3-21 04-[address] 100 MG 00:00: 04:59 [...] pain for up to 30 days. benzonatate 202-0 2022- No 100mg Q8H Take 1 Me [...] 8 (eight) hours for 30 days. ibuprofen 2021- No 800mg Q6H Take 1 [...] hours for 30 days. amoxicillin 2021- No [id number] 500mg Q.5D Take 1 [facility] (AMOXIL) 06-[address] 500 MG 00:00: 04:59 (500 mg Hospita tablet 00 :00 total) by l mouth in the morning and 1 tablet (500 mg total) before bedtime. Do all this for 7 days. amoxicillin 2021- No [id number] 500mg Q.5D Take 1 [facility] (AMOXIL) 06-[address] 500 MG 00:00: 04:59 (500 mg [facility]ospita tablet 00 :00 total) by l mouth in the morning and 1 tablet (500 mg total) before bedtime. Do all this for 7 days. amoxicillin 2021- No [id number] 500mg Q.5D Take 1 [facility] (AMOXIL) 06-[address] 500 MG 00:00: 04:59 (500 mg [facility]ospita tablet 00 :00 total) by l mouth in the morning and 1 tablet (500 mg total) before bedtime. Do all this for 7 days. amoxicillin 2021- No [id number] 500mg Q.5D Take 1 [facility] (AMOXIL) 06-[address] 500 MG 00:00: 04:59 (500 mg Hospita tablet 00 :00 total) by l mouth in the morning and 1 tablet (500 mg total) before bedtime. Do all this for 7 days. amoxicillin 2021-2021- No [id number] 500mg Q.5D Take 1 [facility] (AMOXIL) 06-18- tablet st 500 MG 00:00: 04:59 (500 mg Hospita tablet 00 :00 total) by l mouth in the morning and 1 tablet (500 mg total) before bedtime. Do all this for 7 days. amoxicillin 2021-0 2021- No [id number] 500mg Q.5D Take 1 [facility] (AMOXIL) 06-[address] 500 MG 00:00: 04:59 (500 mg Hospita tablet 00 :00 total) by l mouth in the morning and 1 tablet (500 mg total) before bedtime. Do all this for 7 days. amoxicillin 2021-2021- No [id number] 500mg Q.5D Take 1 [facility] (AMOXIL) 06-18 [...] 500mg Q.5D Take 1 [facility] (Naprosyn) 06-03-[address] 500 MG 00:00: 00:00 (500 [...] meals. amLODIPine 2021-0 2022- No [facility] (NORVAS) 2-06 13-05 st 2.5 mg 00:00: 00:00 Hospita tablet 00 :00 l amLODIPine 2022-0 2022- No [facility] ([facility]) 2-05 st 2.5 mg 00:00: 00:00 [facility]ospita tablet 00 :00 l amLODIPine 2022-0 2022- No [facility] ([facility]ASC) 2- 04-05 st 2.5 mg 00:00: 00:00 [facility]ospita tablet 00 :00 l amLODIPine 2022-0 2022- No [facility] ([facility]AS) 2- 04-05 st 2.5 mg 00:00: 00:00 [facility]ospita tablet 00 :00 l amLODIPine 2022-0 2022- No [facility] ([facility]ASC) 2- 04-05 st 2.5 mg 00:00: 00:00 Hospita tablet 00 :00 l amLODIPine 2022-0 2022- No [facility] ([facility]) 2- 04-05 st 2.5 mg 00:00: 00:00 Hospita tablet 00 :00 l amLODIPine 2022-0 2022- No [facility] ([facility]) 2-03 04-05 st 2.5 mg 00:00: 00:00 Hospita tablet 00 :00 l HYDROcodone 1{tbl} Q6H Take 1 [facility] -acetaminop 05-[address] [facility] ([facility]) 00:00: 05:59 mouth [facility] 5-325 mg 00 :00 every 6 l per tablet (six) hours as needed for moderate pain for up to 5 days .acute pain. Max Daily Amount: 4 tablets HYDROcodone 1{tbl} Q6H Take 1 [facility] -acetaminop 05-[address] [facility] ([facility]) 00:00: 05:59 [facility] 5-325 mg 00 :00 every 6 l per tablet (six) hours as needed for moderate pain for up to 5 days .acute pain. Max Daily Amount: 4 tablets HYDROcodone 1{tbl} Q6H Take 1 [facility] -acetaminop 05-[address] [facility] ([facility]) 00:00: 05:59 [facility] 5-325 mg 00 :00 every 6 l per tablet (six) hours as needed for moderate pain for up to 5 days .acute pain. Max Daily Amount: 4 tablets HYDROcodone 1{tbl} Q6H Take 1 [facility] -acetaminop 05-[address] [facility] ([facility]) 00:00: 05:59 [facility] 5-325 mg 00 :00 every 6 l per tablet (six) hours as needed for moderate pain for up to 5 days .acute pain. Max Daily Amount: 4 tablets HYDROcodone 1{tbl} Q6H Take 1 [facility] -acetaminop 1-[address] [facility] ([facility]) 00:00: 05:59 [facility] 5-325 mg 00 :00 every 6 l per tablet (six) hours as needed for moderate pain for up to 5 days .acute pain. Max Daily Amount: 4 tablets HYDROcodone 1{tbl} Q6H Take 1 [facility] -acetaminop 1-23 01-[address] [facility] (NORCO) 00:00: 05:59 mouth [facility] 5-325 mg 00 :00 every 6 l per tablet (six) hours as needed for moderate pain for up to 5 days .acute pain. Max Daily Amount: 4 tablets acetaminoph No 1{tbl} Q6H Take 1-2 [facility] [...] 15 days .acute pain. acetamin[place]- [place] [id number] 1{tbl} Q6H Take 1-2 [facility] en-codeine 05-04 [...] times 5 days. All with food. predniSONE 2021- No 2 PO [facility] (DELTASONE) 04-[address] 20 mg 00:00: 05:59 followed Hospita tablet 00 :00 by one PO l BID times 5 days. All with food. predniSONE 2021- No 2 PO [facility] (DELTASONE) 04-[address] 20 mg 00:00: 05:59 followed Hospita tablet 00 :00 by one PO l BID times 5 days. All with food. predniSONE 2021- No 2 PO [facility] (DELTASONE) 04-[address] 20 mg 00:00: 05:59 followed Hospita tablet 00 :00 by one PO l BID times 5 days. All with food. predniSONE 2021- No 2 PO [facility] (DELTASONE) 04-[address] 20 mg 00:00: 05:59 followed Hospita tablet 00 :00 by one PO l BID times 5 days. All with food. predniSONE 2021- No 2 PO [facility] [...] Q6H Take 1 [facility] (ADVIL) 600 04-[address] MG tablet 00:00: 00:00 (600 [...] Q6H Take 1 [facility] (ADVIL) 600 04-[address] MG tablet 00:00: 00:00 (600 mg [facility] 00 :00 total) by l mouth every 6 (six) hours as needed for mild pain for up to 30 doses. ibuprofen 2021-0 2- No 600mg Q6H Take 1 [facility] (ADVIL) 600 04-[address] MG tablet 00:00: 00:00 (600 mg [facility] 00 :00 total) by l mouth every 6 (six) hours as needed for mild pain for up to 30 doses. acetaminoph 2021- No [id number] 1{tbl} Q6H Take 1 [facility] en-codeine 04-12 [...] 5 days .acute pain. traMADoL 2021- No [id number] 50mg Q6H Take 1 [facility] (ULTRAM) 50 04-12 tablet (50 s t mg tablet 00:00: 00:00 mg total) Ho spita 00 :00 by mouth l every 6 (six) hours as needed for moderate pain for up to 5 days .acute pain. traMADoL 2021- [place] [id number] 50mg Q6H Take 1 [facility] (ULTRAM) [...] 1 [facility] (LIORESAL) 9-24 tablet by [facility] 10 mg 00:00: mouth 2 tablet 00 times daily as needed (muscle spasms) STOP cyclobenza kasia (FLEXERIL) 10 mg tablet. baclofen 2020-0 Yes Neck pain 10mg Take 1 [facility] (LIORESAL) 9-24 tablet by [facility] 10 mg 00:00: mouth 2 tablet 00 times daily as needed (muscle spasms) STOP cyclobenza kasia (FLEXERIL) 10 mg tablet. baclofen 2020-0 Yes Neck pain 10mg Take 1 [facility] (LIORESAL) 9-24 tablet by [facility] 10 mg 00:00: mouth 2 tablet 00 times daily as needed (muscle spasms) STOP cyclobenza kasia (FLEXERIL) 10 mg tablet. baclofen 2020-0 Yes Neck pain 10mg Take 1 [facility] (LIORESAL) 9-24 tablet by [facility] 10 mg 00:00: mouth 2 tablet 00 times daily as needed (muscle spasms) STOP cyclobenza kasia (FLEXERIL) 10 mg tablet. baclofen 2020-0 Yes Neck pain 10mg Take 1 [facility] (LIORESAL) 9-24 tablet by [facility] 10 mg 00:00: mouth 2 tablet 00 times daily as needed (muscle spasms) STOP cyclobenza kasia (FLEXERIL) 10 mg tablet. baclofen 2020-0 Yes Neck pain 10mg Take 1 [facility] (LIORESAL) 9-24 tablet by [facility] 10 mg 00:00: mouth 2 tablet 00 times daily as needed (muscle spasms) STOP cyclobenza kasia (FLEXERIL) 10 mg tablet. baclofen 2020-0 Yes Neck pain 10mg Take 1 [facility] (LIORESAL) 9-24 tablet by [facility] 10 mg 00:00: mouth 2 tablet 00 times daily as needed (muscle spasms) STOP cyclobenza kasia (FLEXERIL) 10 mg tablet. amitriptyli 2020-0 Yes Neck pain 25mg Take 1 [facility] ne (ELAVIL) 9-03 tablet by [facility] 25 mg 00:00: mouth at tablet [...] varenicline 2020-0 Yes Encounter Start [facility] (CHANTIX) 6 for smoking taking H ealth [...] varenicline 2020-0 Yes Encounter Start [facility] (CHANTIX) 6 for smoking taking H ealth [...] varenicline 2020-0 Yes Encounter [facility] (CHANTIX) 6- for smoking taking H ealth 0.5 mg [...] for Pain. MULTIVITAMI 2019-0 Yes Take by Tom [facility] N (DAILY 9-24 mouth. Health VITAMIN OR) 08:09: 11 sulfamethox 2019-0 Yes 1{tbl} Q.5D Take 1 [facility] azole-trime 9-24 tablet by [facility] thoprim 08:09: mouth 2 (BACTRIM 11 times DS) 800-160 daily. mg per tablet MULTIVITAMI 2019-0 Yes Take by [facility] N (DAILY 9-24 mouth. Health VITAMIN OR) 08:09: 11 sulfamethox 2019-0 Yes 1{tbl} Q.5D Take 1 [facility] azole-trime 9-24 tablet by [facility] thoprim 08:09: mouth 2 (BACTRIM 11 times DS) 800-160 daily. mg per tablet MULTIVITAMI 2019-0 Yes Take by [facility] N (DAILY 9-24 mouth. Health VITAMIN OR) 08:09: 11 sulfamethox 2019-0 Yes 1{tbl} Q.5D Take 1 [facility] azole-trime 9-24 tablet by [facility] thoprim 08:09: mouth 2 (BACTRIM 11 times DS) 800-160 daily. mg per tablet MULTIVITAMI 2019-0 Yes Take by [facility] N (DAILY 9-24 mouth. Health VITAMIN OR) 08:09: 11 sulfamethox 2019-0 Yes 1{tbl} Q.5D Take 1 [facility] azole-trime 9-24 tablet by [facility] thoprim 08:09: mouth 2 (BACTRIM 11 times DS) 800-160 daily. mg per tablet MULTIVITAMI 2019-0 Yes Take by [facility] N (DAILY 9-24 mouth. Health VITAMIN OR) 08:09: 11 sulfamethox 2019-0 Yes 1{tbl} Q.5D Take 1 [facility] azole-trime 9-24 tablet by [facility] thoprim 08:09: mouth 2 (BACTRIM 11 times DS) 800-160 daily. mg per tablet MULTIVITAMI 2019-0 Yes Take by [facility] N (DAILY 9-24 mouth. Health VITAMIN OR) 08:09: 11 sulfamethox 2019-0 Yes 1{tbl} Q.5D Take 1 [facility] azole-trime 9-24 tablet by [facility] thoprim 08:09: mouth 2 (BACTRIM 11 times DS) 800-160 daily. mg per tablet MULTIVITAMI 2019-0 Yes Take by Tom [facility] N (DAILY 9-24 mouth. Health VITAMIN OR) 08:09: 11 sulfamethox 2019-0 Yes 1{tbl} Q.5D Take 1 [facility]ris azole-trime 9-24 tablet by [facility] thoprim 08:09: mouth 2 (BACTRIM 11 [...] 2 times mg/gram weekly. vaginal cream conjugated 2014- Yes Vaginal .5g Insert 0.5 [facility] estrogens 8-03 [facility] (PREMARIN) 00:00: vaginally 0.625 00 2 times mg/gram weekly. vaginal cream conjugated 2014- Yes Vaginal .5g Insert 0.5 [facility] estrogens 8-03 dry[facility] (PREMARIN) 00:00: vaginally 0.625 00 2 times mg/gram weekly. vaginal cream conjugated 2014- Yes Vaginal .5g Insert 0.5 [facility] estrogens 8-03 dry[facility] (PREMARIN) 00:00: vaginally 0.625 00 2 times mg/gram weekly. vaginal cream conjugated 2014- Yes Vaginal .5g Insert 0.5 [...] FLUCELVAX QUAD 2021-02-[address] 00:00:00 [facility] FLUCELVAX QUAD 2021-02-[address] 00:00:00 [facility] FLUCELVAX QUAD PF 2021-02-[address] 00:00:00 [facility] FLUCELVAX QUAD 2021-02-[address] 00:00:00 [facility] FLUCELVAX QUAD 2021-02-[address] 00:00:00 [facility] FLUCELVAX QUAD PF 2021-02-[address] 00:00:00 [facility] FLUCELVAX QUAD 2021-02-[address] 00:00:00 [facility] PFIZER COVID-19 MRNA 2020-08-05 Completed [facility] VACCINATION 00:00:00 [facility] PFIZER COVID-19 MRNA 2020-08-05 Completed [facility] VACCINATION 00:00:00 [facility] PFIZER COVID-19 MRNA 2020-08-05 Completed [facility] VACCINATION 00:00:00 [facility] PFIZER COVID-19 MRNA 2020-08-05 Completed [facility] VACCINATION 00:00:00 [facility] PFIZER COVID-19 MRNA 2020-08-05 Completed [facility] VACCINATION 00:00:00 [facility] PFIZER COVID-19 MRNA 2020-08-05 Completed [facility] VACCINATION 00:00:00 [facility] PFIZER COVID-19 MRNA 2020-08-05 Completed [facility] VACCINATION 00:00:00 [facility] PFIZER COVID-19 MRNA 2020-07-08 Completed [facility] VACCINATION 00:00:00 [facility] PFIZER COVID-19 MRNA 2020-07-08 Completed [facility] VACCINATION 00:00:00 [facility] PFIZER COVID-19 MRNA 2020-07-08 Completed [facility] VACCINATION 00:00:00 [facility] PFIZER COVID-19 MRNA 2020-07-08 Completed [facility] VACCINATION 00:00:00 [facility] PFIZER COVID-19 MRNA 2020-07-08 Completed [facility] VACCINATION 00:00:00 [facility] PFIZER COVID-19 MRNA 2020-07-08 Completed [facility] VACCINATION 00:00:00 [facility] PFIZER COVID-19 MRNA 2020-07-08 Completed [facility] VACCINATION 00:00:00 [facility] Influenza, 2020-03-12 Completed [facility]ine<FLUCELVAX>(M 00:00:00 ulti-Dose) Tdap (Tetanus 2020-03-12 Completed [facility] th Toxoid, Reduced 00:00:00 Diphtheria Toxoid And Acellular Pertussis, Absorbed) Influenza, 2020-03-12 Completed [facility] Vaccine<FLUCELVAX>(M 00:00:00 ulti-Dose) Tdap (Tetanus 2020-03-12 Completed [facility] th Toxoid, Reduced 00:00:00 Diphtheria Toxoid And Acellular Pertussis, Absorbed) Influenza, 2020-03-12 Completed [facility] Vaccine<FLUCELVAX>(M 00:00:00 ulti-Dose) Tdap (Tetanus 2020-03-12 Completed [facility] Toxoid, Reduced 00:00:00 Diphtheria Toxoid And Acellular Pertussis, Absorbed) Influenza, 2020-03-12 Completed [facility] Vaccine<FLUCELVAX>(M 00:00:00 ulti-Dose) Tdap (Tetanus 2020-03-12 Completed [facility] Toxoid, Reduced 00:00:00 Diphtheria Toxoid And Acellular Pertussis, Absorbed) Influenza, 2020-03-12 Completed [facility] Vaccine<FLUCELVAX>(M 00:00:00 ulti-Dose) Tdap (Tetanus 2020-03-12 Completed [facility] Toxoid, Reduced 00:00:00 Diphtheria Toxoid And Acellular Pertussis, Absorbed) Influenza, 2020-03-12 Completed [facility] Vaccine<FLUCELVAX>(M 00:00:00 ulti-Dose) Tdap (Tetanus 2020-03-12 Completed [facility] Toxoid, Reduced 00:00:00 Diphtheria Toxoid And Acellular Pertussis, Absorbed) Influenza, 2020-03-12 Completed [facility] Vaccine<FLUCELVAX>(M 00:00:00 ulti-Dose) Tdap (Tetanus 2020-03-12 Completed [facility] Toxoid, Reduced 00:00:00 Diphtheria Toxoid And Acellular Pertussis, Absorbed) Vital Signs Vital Name Observation Time Observation Value Comments Source Systolic blood 2022-02-20 01:13:29 129 mm[Hg] [facility] pressure Diastolic blood 2022-02-20 01:13:29 67 mm[Hg] [facility] pressure Heart rate 2022-02-20 01:13:29 60 /min [facility] Respiratory rate 2022-02-20 01:13:29 18 /min [facility] Oxygen saturation in 2022-02-20 01:13:29 96 /min [facility] Arterial blood by Pulse oximetry Body height 2022-02-19 20:30:[address] [facility] Body weight 2022-02-19 20:30:[address] [facility] BMI 2022-02-19 20:30:00 30.04 kg/m2 [facility] Body temperature 2022-02-19 20:29:09 36.61 Nydia [facility] pulse rate 2021-12-16 13:21:49 87 /min [facility] blood pressure, 2021-12-16 13:21:49 67 mm[Hg] [facility] diastolic [facility] blood pressure, 2021-12-16 13:21:49 132 mm[Hg] [facility] systolic Health pulse rate 2020-11-25 14:31:56 70 /min [facility] blood pressure, 2020-11-25 14:31:56 74 mm[Hg] [facility] diastolic Health blood pressure, 2020-11-25 14:31:56 113 mm[Hg] [facility] systolic Health pulse rate 2020-11-25 13:39:38 70 /min [facility] beds at the [facility] Health blood pressure, 2020-11-25 13:39:38 74 mm[Hg] [facility]ending [facility] To [facility] diastolic Health blood pressure, 2020-11-25 13:39:38 113 mm[Hg] [facility] To [facility] systolic Health Procedures Procedure Date / Time Performing Source Performed Clinician CT CHEST WO CONTRAST ABDOMEN WO 2022-02-20 Cristóbal Ovalle CONTRAST PELVIS WO CONTRAST 01:47:08 [facility] ECG ED PRELIMINARY INTERPRETATION 2022-02-20 Cristóbal Ovalle 01:34:30 [facility] CBC WITH PLATELET AND DIFFERENTIAL 2022-02-19 Pa Manningist 21:40:00 [facility] COMPREHENSIVE METABOLIC PANEL 2022-02-19 Alee Manning [facility] 21:40:00 [facility] HCG QUALITATIVE, SERUM SCREEN 2022-02-19 Alee Manning [facility] 21:40:00 Hospital ESTIMATED GFR 2022-02-19 Alee Manningist 21:40:00 [facility] ECG 12-LEAD 2022-02-19 Alee Manning 20:46:22 [facility] URINE CULTURE 2022-02-19 Alee Manning 20:34:00 [facility] URINALYSIS SCREEN AND MICROSCOPY, 2022-02-19 Eulalio Manning WITH REFLEX TO CULTURE 20:34:00 Hospital HEPATITIS B SURFACE ANTIGEN 2022-02-05 Eddie Farris Meth odist 15:30:00 Hospital HEPATITIS C ANTIBODY 2022-02-05 Eddie Farris 15:30:00 Hospital HIV 1/2 ANTIGEN/ANTIBODY, FOURTH 2022-02-05 Eddie Farris GENERATION, WITH REFLEXES 15:30:00 Hospit al HSV TYPE 1/2 COMBINED AB, IGM 2022-02-05 Eddie Farris [facility] 15:30:00 Hospital RPR WITH REFLEX TO TITER 2022-02-[address] 15:30:00 Hospital HEPATITIS C VIRUS (HCV), 2022-02-05 Eddie Farris QUANTITATIVE PCR 15:30:00 [facility] SURGICAL PATHOLOGY REQUEST 2021-12-26 Esthela Small Me thodist 18:06:00 Hospital COLONOSCOPY 2021-12-26 Esthela Small Rastafarian 15:44:00 [facility] ESOPHAGOGASTRODUODENOSCOPY (EGD) 2021-12-26 Esthela Small Rastafarian 15:44:00 Hospital COVID-19 QUALITATIVE RT-PCR 2021-12-24 Esthela Small ethodist 12:41:00 [facility] THINPREP TIS AND HPV MRNA E6/E7 2021-12-18 Eddie Farris 18:34:00 [facility] ECG 12-LEAD 2021-11-28 Keith Carroll 15:26:34 [facility] TROPONIN T 2021-11-07 Zeyad Cohen 20:01:00 [facility] COVID-19 QUALITATIVE RT-PCR 2021-11-07 Zeyad Cohen odist 19:09:00 [facility] COVID-19 OMICRON VARIANT 2021-11-[address] QUALITATIVE RT-PCR 19:09:00 [facility] XR CHEST 2 VW 2021-11-07 Zeyad Cohen 18:51:38 [facility] ECG ED PRELIMINARY INTERPRETATION 2021-11-07 Karo Cohen 18:50:27 [facility] COMPREHENSIVE METABOLIC PANEL 2021-11-07 Zeyad Cohenodist 18:03:00 [facility] TROPONIN T 2021-11-07 Zeyad Cohen 18:03:00 [facility] CBC WITH PLATELET AND DIFFERENTIAL 2021-11-07 Ed Cohen 18:03:00 [facility] HCG QUALITATIVE, SERUM SCREEN 2021-11-07 Zeyad Cohen thodist 18:03:00 [facility] ESTIMATED GFR 2021-11-07 Zeyad Cohen 18:03:00 [facility] ECG 12-LEAD 2021-11-07 OghogLiborio louie Rastafarian 17:57:16 Hospital FL UGI W OR WO KUB 2021-11-03 Small, Proctor Hasan Rastafarian 15:16:30 Hospital HEPATITIS C VIRUS (HCV), 2021-11-03 Esthela Small Meth odist QUANTITATIVE PCR 13:52:00 Hospital HEPATIC FUNCTION PANEL 2021-11-03 Esthela Small Method ist 13:52:00 Hospital XR CHEST 2 VW 2021-10-15 José Rider Rastafarian 02:52:42 [facility] COMPREHENSIVE METABOLIC PANEL 2021-10-15 Mario Maher thodist 01:15:00 [facility] TROPONIN T 2021-10-15 Mario Maherist 01:15:00 [facility] B NATRIURETIC PEPTIDE 2021-10-15 Mario Maherist 01:15:00 [facility] CBC WITH PLATELET AND DIFFERENTIAL 2021-10-15 Kassy Maher 01:15:00 [facility] PROTHROMBIN TIME WITH INR 2021-10-15 Mario Maher ist 01:15:00 [facility] PARTIAL THROMBOPLASTIN TIME (PTT) 2021-10-15 Mario Maher 01:15:00 [facility] ESTIMATED GFR 2021-10-15 Mario Maher 01:15:00 [facility] ECG 12-LEAD 2021-10-15 Mario Maher 00:33:[address] [facility] [address] ANGIOGRAM PE CHEST 2021-10-12 Trung Hudson 17:55:52 [facility] CBC WITH PLATELET AND DIFFERENTIAL 2021-10-12 Trung Hudson 15:36:00 Hospital COMPREHENSIVE METABOLIC PANEL 2021-10-12 Trung Hudson ethodist 15:36:00 Hospital TROPONIN T 2021-10-12 Trung Hudson 15:36:00 Hospital B NATRIURETIC PEPTIDE 2021-10-12 Trung Hudson 15:36:00 Hospital CREATINE KINASE, TOTAL (CPK) 2021-10-12 Trung Hudson thodist 15:36:00 Hospital ESTIMATED GFR 2021-10-12 Trung Hudson 15:36:00 Hospital ECG ED PRELIMINARY INTERPRETATION 2021-10-12 Trung Hudson 15:20:39 Hospital URINE CULTURE 2021-10-12 Rajinder Ordoñez 15:17:00 [facility] URINALYSIS SCREEN AND MICROSCOPY, 2021-10-12 Arslan Ordoñez WITH REFLEX TO CULTURE 15:17:00 [facility] HCG QUALITATIVE, URINE SCREEN 2021-10-12 Rajinder Ordoñez 15:17:00 [facility] ECG 12-LEAD 2021-10-12 Rajinder Ordoñez 14:48:50 [facility] DC AN ELECTIVE SUPRAGLOTTIC AIRWAY 2021-09-30 Ruddy Marie 12:10:00 Hospital DECOMPRESSION, ULNAR NERVE 2021-09-30 Rebecca Brownele 12:06:00 [facility] COVID-19 QUALITATIVE RT-PCR 2021-09-26 Dulce Maria Pierre 14:23:00 [facility] PROTHROMBIN TIME WITH INR 2021-09-26 Atnonio Pierre ist 14:23:00 [facility] PARTIAL THROMBOPLASTIN TIME (PTT) 2021-09-26 Keith Pierre 14:23:00 [facility] COMPREHENSIVE METABOLIC PANEL 2021-09-26 Me Gabby thodist 14:23:00 [facility] ESTIMATED GFR 2021-09-26 Rebecca Brownlee 14:23:00 [facility] HEMOGLOBIN A1C 2021-09-26 Rebecca Brownlee 14:23:00 [facility] CBC WITH PLATELET AND DIFFERENTIAL 2021-09-19 Lexie Esparza 07:10:00 [facility] THYROID STIMULATING HORMONE 2021-09-19 Peggy Esparza 07:10:00 Hospital XR ELBOW 3+ VW LEFT 2021-09-10 Rebecca Brownlee 15:28:[address] [facility] [address] ANGIOGRAM NECK W WO CONTRAST 2021-08-27 Brenda Retana 00:01:04 [facility] CT ANGIOGRAM HEAD W WO CONTRAST 2021-08-27 Brenda Retana 00:00:50 [facility] CT HEAD WO CONTRAST 2021-08-26 Brenda Retana 23:42:36 [facility] ECG ED PRELIMINARY INTERPRETATION 2021-08-26 Brenda Retana 23:22:45 [facility] CBC WITH PLATELET AND DIFFERENTIAL 2021-08-26 Willie Retana 21:57:00 [facility] COMPREHENSIVE METABOLIC PANEL 2021-08-26 Brenda Retana thodist 21:57:00 [facility] TROPONIN T 2021-08-26 Brenda Retana 21:57:00 [facility] B NATRIURETIC PEPTIDE 2021-08-26 Brenda Retana 21:57:00 [facility] HCG QUALITATIVE, SERUM SCREEN 2021-08-26 Brenda Retana Me thodist 21:57:00 [facility] ESTIMATED GFR 2021-08-26 Brenda Retana 21:57:00 [facility] ECG 12-LEAD 2021-08-26 Brenda Retana 21:42:16 [facility] URINE CULTURE 2021-08-06 Myles Martin 22:27:00 [facility] URINALYSIS SCREEN AND MICROSCOPY, 2021-08-06 Myles Martin Si WITH REFLEX TO CULTURE 22:27:00 Hospital XR CHEST 2 VW 2021-08-06 Myles Martin 20:36:00 Hospital INFLUENZA ANTIGEN 2021-08-06 Susie Melton 20:10:00 [facility] RESPIRATORY PATHOGEN PANEL WITH 2021-08-06 Susie Melton COVID-19 RT-PCR 20:10:00 [facility] ECG ED PRELIMINARY INTERPRETATION 2021-08-06 Myles Martin Si 20:08:02 [facility] COMPREHENSIVE METABOLIC PANEL 2021-08-06 Susie Melton thodist 20:05:00 [facility] CBC WITH PLATELET AND DIFFERENTIAL 2021-08-06 Montserrat Melton 20:05:00 [facility] TROPONIN T 2021-08-06 Susie Melton 20:05:00 [facility] LIPASE LEVEL 2021-08-06 Susie Melton 20:05:00 [facility] ESTIMATED GFR 2021-08-06 Susie Melton 20:05:00 [facility] ECG 12-LEAD 2021-08-06 Susie Melton 19:55:29 [facility] TROPONIN T 2021-08-01 Brenda Retana 03:32:00 [facility] ECG ED PRELIMINARY INTERPRETATION 2021-08-01 Nelson Villagran i Rastafarian 02:37:45 Hospital CBC WITH PLATELET AND DIFFERENTIAL 2021-08-01 Willie Retana Rastafarian 00:35:00 [facility] COMPREHENSIVE METABOLIC PANEL 2021-08-01 Brenda Retana thodist 00:35:00 [facility] TROPONIN T 2021-08-01 Brenda Retana Rastafarian 00:35:00 [facility] B NATRIURETIC PEPTIDE 2021-08-01 Brenda Retana Rastafarian 00:35:00 [facility] ESTIMATED GFR 2021-08-01 Brenda Retana Rastafarian 00:35:00 [facility] ECG 12-LEAD 2021-08-01 Brenda Retana 00:23:19 [facility] TROPONIN T 2021-07-30 Jaida Sales 21:35:00 Hospital ECG ED PRELIMINARY INTERPRETATION 2021-07-30 Myles Martin Si Rastafarian 19:53:48 Hospital XR CHEST 2 VW 2021-07-30 Myles Martin Rastafarian 19:37:56 Hospital COMPREHENSIVE METABOLIC PANEL 2021-07-30 Jaida Sales 18:40:00 Hospital CBC WITH PLATELET AND DIFFERENTIAL 2021-07-30 Jaida Sales 18:40:00 Hospital TROPONIN T 2021-07-30 Jaida Sales 18:40:00 Hospital B NATRIURETIC PEPTIDE 2021-07-[address] 18:40:00 Hospital ESTIMATED GFR 2021-07-30 Jaida Sales 18:40:00 Hospital ECG 12-LEAD 2021-07-30 Jaida Sales 18:33:57 Hospital MAMMO BREAST SCREEN TOMOSYNTHESIS 2021-07-28 Shell Vargas Rastafarian BILATERAL 14:20:00 [facility] ECG ED PRELIMINARY INTERPRETATION 2021-07-01 Nelson Villagran i Rastafarian 00:04:28 Hospital TROPONIN T 2021-06-30 Mario Maher 23:09:00 [facility] RESPIRATORY PATHOGEN PANEL WITH 2021-06-30 Mario Maher COVID-19 RT-PCR 21:09:00 [facility] XR CHEST 2 VW 2021-06-30 Mario Maher 20:40:51 [facility] COMPREHENSIVE METABOLIC PANEL 2021-06-30 Mario Maher thodist 20:06:00 [facility] TROPONIN T 2021-06-30 Mario Maher 20:06:00 [facility] B NATRIURETIC PEPTIDE 2021-06-30 Mario Maher 20:06:00 [facility] CBC WITH PLATELET AND DIFFERENTIAL 2021-06-30 Kassy Maher 20:06:00 [facility] ESTIMATED GFR 2021-06-30 Mario Maher 20:06:00 [facility] ECG 12-LEAD 2021-06-30 Mario Maher 19:54:19 [facility] POC URINALYSIS DIPSTICK 2021-06-16 Eddie Farris t 18:20:00 [facility] THINPREP TIS PAP AND HPV MRNA 2021-06-16 Eddie Farris Mn thodist E6/E7 REFLEX HPV 16,18/45 18:17:00 Hospit al URINALYSIS, COMPLETE, WITH REFLEX 2021-06-16 Eddie Farrisist TO CULTURE 17:55:00 Hospital XR SHOULDER 2+ VW RIGHT 2021-06-02 Roger Ling t 17:52:26 [facility] MRI LUMBAR SPINE WO CONTRAST 2021-05-09 Shell Vargas Met hodist 18:44:08 [facility] MRI CERVICAL SPINE WO CONTRAST 2021-05-05 Shell Vargas ethodist 14:11:[address] [facility] [address] LUMBAR SPINE WO CONTRAST 2021-05-04 Liborio Herrera Met hodist 22:36:[address] THORACIC SPINE WO CONTRAST 2021-05-04 Liborio Herrera ethodist 22:35:58 Hospital TROPONIN T 2021-04-13 Shine Lui 01:33:00 Hospital XR CHEST 2 VW 2021-04-12 Shine Lui 23:31:00 [facility] COMPREHENSIVE METABOLIC PANEL 2021-04-12 Shine Lui Mn thodist 22:56:00 Hospital LIPASE LEVEL 2021-04-12 Shine Lui 22:56:00 Hospital HC COMPLETE BLD COUNT W/AUTO DIFF 2021-04-12 Shine Lui 22:56:00 Hospital TROPONIN T 2021-04-12 Shine Lui 22:56:00 Hospital ESTIMATED GFR 2021-04-12 Shine Lui 22:56:[address] RENAL STONE PROTOCOL 2021-04-12 Shine Lui t 22:36:21 Hospital ECG 12-LEAD 2021-04-12 Shine Lui 21:52:29 Hospital URINE CULTURE 2021-04-12 Shine Lui 21:52:00 Hospital URINALYSIS SCREEN AND MICROSCOPY, 2021-04-12 Shine Lui WITH REFLEX TO CULTURE 21:52:00 Hospital ECG ED PRELIMINARY INTERPRETATION 2021-04-12 Shine Lui 21:47:56 [facility] Plan of Care Planned Activity Planned Date Details Comments Source Future Scheduled 2024-09-11 [facility] 00:[facility]:00 malignant neoplasm of cervix (procedure) [code = 860618367] Future Scheduled 2024-09-11 [facility] 00:00:00 malignant neoplasm of cervix (procedure) [code = 744426542] Future Scheduled 2024-09-11 [facility] 00:00:00 malignant neoplasm of cervix (procedure) [code = 727769926] Future Scheduled 2024-09-11 [facility] 00:00:00 malignant neoplasm of cervix (procedure) [code = 482164443] Future Scheduled 2024-09-11 [facility] 00:00:00 malignant neoplasm of cervix (procedure) [code = 261468252] Future Scheduled 2024-09-11 [facility] 00:00:00 malignant neoplasm of cervix (procedure) [code = 290376519] Future Scheduled 2024-09-11 [facility] 00:00:00 malignant neoplasm of cervix (procedure) [code = 040655265] Future Scheduled 2024-09-11 [facility] 00:00:00 malignant neoplasm of cervix (procedure) [code = 442453913] Future Scheduled 2024-09-11 [facility] 00:00:00 malignant neoplasm of cervix (procedure) [code = 623179714] Future Scheduled 2024-09-11 [facility] 00:00:00 malignant neoplasm of cervix (procedure) [code = 717140041] Future Scheduled 2024-09-11 [facility] 00:00:00 malignant neoplasm of cervix (procedure) [code = 019360790] Future Scheduled 2024-09-11 [facility] 00:00:00 malignant neoplasm of cervix (procedure) [code = 825229310] Future Scheduled 2024-09-11 [facility] 00:00:00 malignant neoplasm of cervix (procedure) [code = 409186582] Future Scheduled 2024-09-11 [facility] 00:00:00 malignant neoplasm of cervix (procedure) [code = 769357771] Future Scheduled 2022 HEPATITIS B VACCINES Met [facility] Test 13:45:15 (1 of 3 - 3-dose series) [code = HEPATITIS B VACCINES (1 of 3 - 3-dose series)] Future Scheduled 2022 Pneumococcal Vaccine: [facility] Test 13:45:15 Pediatrics (0 to 5 Years) and At-Risk Patients (6 to 64 Years) (1 - PCV) [code = Pneumococcal Vaccine: Pediatrics (0 to 5 Years) and At-Risk Patients (6 to 64 Years) (1 - PCV)] Future Scheduled 2022 COLONOSCOPY SCREENING [facility] Test 13:45:15 [code = COLONOSCOPY SCREENING] Future Scheduled 2022 SHINGLES VACCINES (1 [facility] Test 13:45:15 of 2) [code = SHINGLES VACCINES (1 of 2)] Future Scheduled 2022 COVID-19 VACCINE (3 - [facility] Test 13:45:15 Booster for Pfizer series) [code = COVID-19 VACCINE (3 - Booster for Pfizer series)] Future Scheduled 2022 INFLUENZA VACCINE Method [facility] Test 13:45:15 [code = INFLUENZA VACCINE] Future Scheduled 2022 BREAST CANCER [facility] Test 13:45:15 SCREENING [code = BREAST CANCER SCREENING] Future Scheduled 2022 Screening for [facility] Test 13:45:15 malignant neoplasm of cervix (procedure) [code = 890051759] Future Scheduled 2022-04-17 HEPATITIS B VACCINES [facility] Test 10:21:02 (1 of 3 - 3-dose series) [code = HEPATITIS B VACCINES (1 of 3 - 3-dose series)] Future Scheduled 2022-04-17 Pneumococcal Vaccine: [facility] Test 10:21:02 Pediatrics (0 to 5 Years) and At-Risk Patients (6 to 64 Years) (1 - PCV) [code = Pneumococcal Vaccine: Pediatrics (0 to 5 Years) and At-Risk Patients (6 to 64 Years) (1 - PCV)] Future Scheduled 2022-04-17 COLONOSCOPY SCREENING [facility] Test 10:21:02 [code = COLONOSCOPY SCREENING] Future Scheduled 2022-04-17 SHINGLES VACCINES (1 [facility] Test 10:21:02 of 2) [code = SHINGLES VACCINES (1 of 2)] Future Scheduled 2022-04-17 COVID-19 VACCINE (3 - [facility] Test 10:21:02 Booster for Pfizer series) [code = COVID-19 VACCINE (3 - Booster for Pfizer series)] Future Scheduled 2022-04-17 INFLUENZA VACCINE [facility] Test 10:21:02 [code = INFLUENZA VACCINE] Future Scheduled 2022-04-17 BREAST CANCER [facility] Test 10:21:02 SCREENING [code = BREAST CANCER SCREENING] Future Scheduled 2022-04-17 Screening for [facility] Test 10:21:02 malignant neoplasm of cervix (procedure) [code = 458259169] Future Scheduled 2022-04-15 HEPATITIS B VACCINES [facility] Test 14:24:02 (1 of 3 - 3-dose series) [code = HEPATITIS B VACCINES (1 of 3 - 3-dose series)] Future Scheduled 2022-04-15 Pneumococcal Vaccine: [facility] Test 14:24:02 Pediatrics (0 to 5 Years) and At-Risk Patients (6 to 64 Years) (1 - PCV) [code = Pneumococcal Vaccine: Pediatrics (0 to 5 Years) and At-Risk Patients (6 to 64 Years) (1 - PCV)] Future Scheduled 2022-04-15 COLONOSCOPY SCREENING [facility] Test 14:24:02 [code = COLONOSCOPY SCREENING] Future Scheduled 2022-04-15 SHINGLES VACCINES (1 [facility] Test 14:24:02 of 2) [code = SHINGLES VACCINES (1 of 2)] Future Scheduled 2022-04-15 COVID-19 VACCINE (3 - [facility] Test 14:24:02 Booster for Pfizer series) [code = COVID-19 VACCINE (3 - Booster for Pfizer series)] Future Scheduled 2022-04-15 INFLUENZA VACCINE Method [facility] Test 14:24:02 [code = INFLUENZA VACCINE] Future Scheduled 2022-04-15 BREAST CANCER [facility] Test 14:24:02 SCREENING [code = BREAST CANCER SCREENING] Future Scheduled 2022-04-15 Screening for [facility] Test 14:24:02 malignant neoplasm of cervix (procedure) [code = 375662828] Future Scheduled 2022-04-03 HEPATITIS B VACCINES [facility] Test 09:31:00 (1 of 3 - 3-dose series) [code = HEPATITIS B VACCINES (1 of 3 - 3-dose series)] Future Scheduled 2022-04-03 Pneumococcal Vaccine: [facility] Test 09:31:00 Pediatrics (0 to 5 Years) and At-Risk Patients (6 to 64 Years) (1 - PCV) [code = Pneumococcal Vaccine: Pediatrics (0 to 5 Years) and At-Risk Patients (6 to 64 Years) (1 - PCV)] Future Scheduled 2022-04-03 COLONOSCOPY SCREENING [facility] Test 09:31:00 [code = COLONOSCOPY SCREENING] Future Scheduled 2022-04-03 SHINGLES VACCINES (1 Met [facility] Test 09:31:00 of 2) [code = SHINGLES VACCINES (1 of 2)] Future Scheduled 2022-04-03 COVID-19 VACCINE (3 - [facility] Test 09:31:00 Booster for Pfizer series) [code = COVID-19 VACCINE (3 - Booster for Pfizer series)] Future Scheduled 2022-04-03 INFLUENZA VACCINE Method [facility] Test 09:31:00 [code = INFLUENZA VACCINE] Future Scheduled 2022-04-03 BREAST CANCER [facility] Test 09:31:00 SCREENING [code = BREAST CANCER SCREENING] Future Scheduled 2022-04-03 Screening for [facility] Test 09:31:00 malignant neoplasm of cervix (procedure) [code = 176212250] Future Scheduled 2022-03-05 HEPATITIS B VACCINES [facility] Test 00:08:56 (1 of 3 - 3-dose series) [code = HEPATITIS B VACCINES (1 of 3 - 3-dose series)] Future Scheduled 2022-03-05 Pneumococcal Vaccine: [facility] Test 00:08:56 Pediatrics (0 to 5 Years) and At-Risk Patients (6 to 64 Years) (1 - PCV) [code = Pneumococcal Vaccine: Pediatrics (0 to 5 Years) and At-Risk Patients (6 to 64 Years) (1 - PCV)] Future Scheduled 2022-03-05 COLONOSCOPY SCREENING [facility] Test 00:08:56 [code = COLONOSCOPY SCREENING] Future Scheduled 2022-03-05 SHINGLES VACCINES (1 [facility] Test 00:08:56 of 2) [code = SHINGLES VACCINES (1 of 2)] Future Scheduled 2022-03-05 COVID-19 VACCINE (3 - [facility] Test 00:08:56 Booster for Pfizer series) [code = COVID-19 VACCINE (3 - Booster for Pfizer series)] Future Scheduled 2022-03-05 INFLUENZA VACCINE [facility] Test 00:08:56 [code = INFLUENZA VACCINE] Future Scheduled 2022-03-05 BREAST CANCER [facility] Test 00:08:56 SCREENING [code = BREAST CANCER SCREENING] Future Scheduled 2022-03-05 Screening for [facility] Test 00:08:56 malignant neoplasm of cervix (procedure) [code = 166365885] Future Scheduled 2022-03-05 HEPATITIS B VACCINES [facility] Test 00:08:56 (1 of 3 - 3-dose series) [code = HEPATITIS B VACCINES (1 of 3 - 3-dose series)] Future Scheduled 2022-03-05 Pneumococcal Vaccine: [facility] Test 00:08:56 Pediatrics (0 to 5 Years) and At-Risk Patients (6 to 64 Years) (1 - PCV) [code = Pneumococcal Vaccine: Pediatrics (0 to 5 Years) and At-Risk Patients (6 to 64 Years) (1 - PCV)] Future Scheduled 2022-03-05 COLONOSCOPY SCREENING [facility] Test 00:08:56 [code = COLONOSCOPY SCREENING] Future Scheduled 2022-03-05 SHINGLES VACCINES (1 Met [facility] Test 00:08:56 of 2) [code = SHINGLES VACCINES (1 of 2)] Future Scheduled 2022-03-05 COVID-19 VACCINE (3 - [facility] Test 00:08:56 Booster for Pfizer series) [code = COVID-19 VACCINE (3 - Booster for Pfizer series)] Future Scheduled 2022-03-05 INFLUENZA VACCINE Method [facility] Test 00:08:56 [code = INFLUENZA VACCINE] Future Scheduled 2022-03-05 BREAST CANCER [facility] Test 00:08:56 SCREENING [code = BREAST CANCER SCREENING] Future Scheduled 2022-03-05 Screening for [facility] Test 00:08:56 malignant neoplasm of cervix (procedure) [code = 609206217] Future Scheduled 2022-02-22 HEPATITIS B VACCINES [facility] Test 22:17:15 (1 of 3 - 3-dose series) [code = HEPATITIS B VACCINES (1 of 3 - 3-dose series)] Future Scheduled 2022-02-22 Pneumococcal Vaccine: [facility] Test 22:17:15 Pediatrics (0 to 5 Years) and At-Risk Patients (6 to 64 Years) (1 - PCV) [code = Pneumococcal Vaccine: Pediatrics (0 to 5 Years) and At-Risk Patients (6 to 64 Years) (1 - PCV)] Future Scheduled 2022-02-22 COLONOSCOPY SCREENING [facility] Test 22:17:15 [code = COLONOSCOPY SCREENING] Future Scheduled 2022-02-22 SHINGLES VACCINES (1 [facility] Test 22:17:15 of 2) [code = SHINGLES VACCINES (1 of 2)] Future Scheduled 2022-02-22 COVID-19 VACCINE (3 - [facility] Test 22:17:15 Booster for Pfizer series) [code = COVID-19 VACCINE (3 - Booster for Pfizer series)] Future Scheduled 2022-02-22 INFLUENZA VACCINE Method [facility] Test 22:17:15 [code = INFLUENZA VACCINE] Future Scheduled 2022-02-22 BREAST CANCER [facility] Test 22:17:15 SCREENING [code = BREAST CANCER SCREENING] Future Scheduled 2022-02-22 Screening for [facility] Test 22:17:15 malignant neoplasm of cervix (procedure) [code = 189362699] Future Scheduled 2022-01-10 IMM Influenza Seasonal H [...] malignant neoplasm of colon (procedure) [code = 568405993] Future Scheduled 2019 [facility]:00 malignant neoplasm of colon (procedure) [code = 407702660] Future Scheduled 2019 [facility] 00:00:00 malignant neoplasm of colon (procedure) [code = 460542187] Future Scheduled 2019 [facility] 00:00:00 malignant neoplasm of colon (procedure) [code = 514155756] Future Scheduled 2019 [facility] 00:00:00 malignant neoplasm of colon (procedure) [code = 482635362] Future Scheduled 2019 [facility] 00:00:00 malignant neoplasm of colon (procedure) [code = 241507567] Future Scheduled 2019 [facility] 00:00:00 malignant neoplasm of colon (procedure) [code = 362433568] Future Scheduled 1975 Imm Pneumococcal 0-64 Maria [...] Date/Time Type Type Clinicians Facility Department ID 2022-04-23 Outpatient [facility] [id number] [place] 15:11:46 [id number] [facility] 2022-05-15 2022-05-15 Outpatient KELLI ALDANA KELLI [id number] Kelli 00:00:00 00:00:00 SHINE ren 2022-02-19 2022-02-19 Emergency Mickey, 1.2.840.1 [id number] 2099 [id number] Methodi 18:09:00 20:16:00 Cristóbal [address]1.[address] [place] 3.430.2.7 Hosp shai .3.046878 l .8 2022-02-19 2022-02-19 Emergency Mickey, 1.2.840.1 [id number] 2099 742274 Methodi 18:09:00 20:16:00 [address] [place] 3.430.2.7 Hosp shai .3.573891 l .8 2022-02-12 2022-02-12 Orders Lopez, 1.2.840.1 [id number] 43272 Methodi 00:00:00 00:00:00 Only Maureen 67017.1.[address] 3.430.2.7 Hospit a .3.165591 l .8 2022-02-12 2022-02-12 Orders Lopez, 1.2.840.1 [id number] 88084 Methodi 00:00:00 00:00:00 Only Maureen 94092.1.[address] 3.430.2.7 Hospit a .3.481231 l .8 2022-02-11 2022-02-11 Orders Lopez, 1.2.840.1 313820885 90613 Methodi 00:00:00 00:00:00 Only Maureen 84848.1.[address] 3.430.2.7 Hospit a .3.403451 l .8 2022-02-11 2022-02-11 Telephone Prasanth, 1.2.840.1 [id number] 2099 255852 Methodi 00:00:00 00:00:[address] 3.430.2.7 Hospit a .3.676287 l .8 2022-02-11 2022-02-11 Orders Jessica, 1.2.840.1 183631549 18080 39906 Methodi 00:00:00 00:00:00 Only Maureen 23143.1.[address] 3.430.2.7 Hospit a .3.490522 l .8 2022-02-11 2022-02-11 Telephone Prasanth, 1.2.840.1 [id number] 2099 136735 Methodi 00:00:00 00:00:[address] Eddie Franco [address]502.1.[address] 3.430.2.7 Hospit a .3.074431 l .8 2022-02-09 2022-02-09 Outpatient COH COH PDPFCCG ETQ COH 00:00:00 00:00:00 [id number] 2022-02-09 2022-02-09 Telephone Prasanth, 1.2.840.1 [id number] 2099 789252 Methodi 00:00:00 00:00:00 Eddie Franco 43968.1.[address] 3.430.2.7 Hospit a .3.254804 l .8 2022-02-09 2022-02-09 Telephone Prasanth, 1.2.840.1 [id number] 2099 626019 Methodi 00:00:00 00:00:00 Eddie Franco 53445.1.[address] 3.430.2.7 Hospit a .3.160358 l .8 2022-02-05 2022-02-05 Lab Prasanth, 1.2.840.1 310303286 766124 3796 Methodi 10:50:00 10:55:00 Eddie Franco 53057.1.[address] 3.430.2.7 Hospit a .3.050196 l .8 2022-02-05 2022-02-05 Lab Prasanth, 1.2.840.1 079204988 735563 9313 Methodi 10:50:00 10:55:00 Eddie Franco 99072.1.[address] 3.430.2.7 Hospit a .3.728395 l .8 2022-02-05 2022-02-05 Office Prasanth, 1.2.840.1 [id number] 594191 3366 Methodi 09:40:00 10:31:06 Visit Eddie Franco 64455.1.[address] 3.430.2.7 Hospit a .3.311787 l .8 2022-02-05 2022-02-05 Office Prasanth, 1.2.840.1 [id number] 665137 2935 Methodi 09:40:00 10:31:06 Visit Eddie Franco 68105.1.[address] 3.430.2.7 Hospit a .3.111181 l .8 2022-02-05 2022-02-05 Travel 1.2.840.1 1.2.000.281 2867 343634 Methodi 00:00:00 00:00:[address] 3.430.2.7 0.2.7.3.698 Ho spita .3.160700 084.8 l .8 2022-02-05 2022-02-05 Refill Istre, 1.2.840.1 [id number] 873976 2641 Methodi 00:00:00 00:00:[address] [place] 3.430.2.7 Hospi ta .3.102483 l .8 2022-02-05 2022-02-05 Refill Istre, 1.2.840.1 542175114 515454 2163 Methodi 00:00:00 00:00:[address] [place] 3.430.2.7 Hospi ta .3.865899 l .8 2022-02-05 2022-02-05 Travel 1.2.840.1 1.2.904.892 2666 127439 Methodi 00:00:00 00:00:[address] 3.430.2.7 0.2.7.3.698 Ho spita .3.237784 084.8 l .8 2022-02-03 2022-02-03 Telephone Prasanth, 1.2.840.1 [id number] 2099 627140 Methodi 00:00:00 00:00:00 Eddie Salvador 55046.1.[address] 3.430.2.7 Hospit a .3.399812 l .8 2022-02-03 2022-02-03 Telephone Prasanth, 1.2.840.1 [id number] 2099 637107 Methodi 00:00:00 00:00:00 Eddie Franco 52624.1.[address] 3.430.2.7 Hospit a .3.958885 l .8 2022-01-01 2022-01-01 Telephone Alessio, 1.2.840.1 [id number] 2099 494789 Methodi 00:00:00 00:00:[address] 3.430.2.7 Hospit a .3.775994 l .8 2022-01-01 2022-01-01 Telephone Alessio, 1.2.840.1 150243598 2099 940701 Methodi 00:00:00 00:00:[address] 3.430.2.7 Hospit a .3.951042 l .8 2021-12-26 2021-12-26 Surgery Small, 1.2.840.1 858270045 379546 1744 Methodi 11:00:00 11:45:[address] Hasan 3.430.2.7 Hospit a .3.032184 l .8 2021-12-26 2021-12-26 Surgery Small, 1.2.840.1 298190317 301917 3237 Methodi 11:00:00 11:45:[address] Hasan 3.430.2.7 Hospit a .3.507278 l .8 2021-12-26 2021-12-26 Hospital Small, 1.2.840.1 521410499 22764 83800 Methodi 10:21:00 11:28:00 Encounter Proctor 00211.1.[address] [place] 3.430.2.7 Hospit a .3.141573 l .8 2021-12-26 2021-[facility]-26 [facility]1 [id number] 30552 58213 Methodi 10:21:00 11:28:00 Encounter Proctor 76365.1.[address] Hasan 3.430.2.7 Hospit a .3.259786 l .8 2021-12-26 2021-12-26 Anesthesia PennieHans mendez 1.2.840.1 [id number] [id number] Methodi 10:44:00 11:06:00 Event Edward 48089.1.[address] 3.430.2.7 Hospit a .3.923180 l .8 2021-12-26 2021-12-26 Anesthesia PennieHans mendez 1.2.840.1 [id number] 2871574937 Methodi 10:44:00 11:06:00 Event Edward 44462.1.[address] 3.430.2.7 Hospit a .3.830085 l .8 2021-12-26 2021-12-26 Travel 1.2.840.1 1.2.517.772 9665 574332 Methodi 00:00:00 00:00:[address] 3.430.2.7 0.2.7.3.698 Ho spita .3.286509 084.8 l .8 2021-12-26 2021-12-26 Travel 1.2.840.1 1.2.051.053 8476 272406 Methodi 00:00:00 00:00:[address] 3.430.2.7 0.2.7.3.698 Ho spita .3.985565 084.8 l .8 2021-12-24 2021-12-24 [facility], 1.2.840.1 434420475 833790 0762 Methodi 08:00:00 08:15:[address] Hasan 3.430.2.7 Hospit a .3.300292 l .8 2021-12-24 2021-12-24 Lab Staci, 1.2.840.1 499399376 467903 4912 Methodi 08:00:00 08:15:[address] [place] 3.430.2.7 Hospit a .3.072736 l .8 2021-12-24 2021-12-24 Orders Tran, 1.2.840.1 [id number] 201976 4200 Methodi 00:00:00 00:00:00 Only Kortney 50635.1.[address] 3.430.2.7 Hospit a .3.331669 l .8 2021-12-24 2021-12-24 Orders Marc, 1.2.840.1 349105742 951342 2094 Methodi 00:00:00 00:00:00 Only Kortney 74958.1.[address] 3.430.2.7 Hospit a .3.764865 l .8 2021-12-18 2021-12-18 Office Prasanth, 1.2.840.1 243711294 007709 5566 Methodi 11:00:00 13:02:01 Visit Eddie Franco 53599.1.[address] 3.430.2.7 Hospit a .3.986947 l .8 2021-12-18 2021-12-18 Office Prasanth, 1.2.840.1 550345272 701552 0783 Methodi 11:00:00 13:02:01 Visit Eddie Franco 84753.1.[address] 3.430.2.7 Hospit a .3.455766 l .8 2021-12-18 2021-12-18 Travel 1.2.840.1 1.2.557.210 6726 911131 Methodi 00:00:00 00:00:[address] 3.430.2.7 0.2.7.3.698 Ho spita .3.350570 084.8 l .8 2021-12-18 2021-12-18 Travel 1.2.840.1 1.2.072.348 1800 546788 Methodi 00:00:00 00:00:[address] 3.430.2.7 0.2.7.3.698 Ho spita .3.944550 084.8 l .8 2021-12-16 2021-12-16 Office Doug Estevez [facility] Encounter/ Legacy 00:00:00 00:00:00 Visit Joey Maggie Bijan [id number] [facility] 890749 [facility] 2021-12-09 2021-12-09 Refill Leggett, 1.2.840.1 [id number] 2099 440136 Methodi 00:00:00 00:00:[address] 3.430.2.7 Hospit a .3.000690 l .8 2021-12-09 2021-12-09 Refill Leggett, 1.2.840.1 031632386 2099 245379 Methodi 00:00:00 00:00:[address] 3.430.2.7 Hospit a .3.529099 l .8 2021-11-28 2021-11-28 Office Carly, 1.2.840.1 972753837 751 2996747 Methodi 10:15:00 10:52:48 Visit Pimprapa 18570.1.[address] 3.430.2.7 Hospit a .3.110202 l .8 2021-11-28 2021-11-28 Office Yarelysakshihans, 1.2.840.1 015036283 344 0321497 Methodi 10:15:00 10:52:48 Visit Pimprapa 47832.1.[address] 3.430.2.7 Hospit a .3.039785 l .8 2021-11-28 2021-11-28 Travel 1.2.840.1 1.2.495.892 8542 961985 Methodi 00:00:00 00:00:[address] 3.430.2.7 0.2.7.3.698 Ho spita .3.246418 084.8 l .8 2021-11-28 2021-11-28 Travel 1.2.840.1 1.2.216.034 9777 680840 Methodi 00:00:00 00:00:[address] 3.430.2.7 0.2.7.3.698 Ho spita .3.794944 084.8 l .8 2021-11-17 2021-11-17 Office Maebe, 1.2.840.1 650023913 989781 8435 Methodi 09:00:00 09:30:00 Visit Juana 56896.1.[address] [place] 3.430.2.7 Hospit a .3.206068 l .8 2021-11-17 2021-11-17 Office Maebe, 1.2.840.1 754308277 617662 1588 Methodi 09:00:00 09:30:00 Visit Juana 32903.1.[address] [place] 3.430.2.7 Hospit a .3.106742 l .8 2021-11-17 2021-11-17 Travel 1.2.840.1 1.2.781.317 5637 584858 Methodi 00:00:00 00:00:[address] 3.430.2.7 0.2.7.3.698 Ho spita .3.853304 084.8 l .8 2021-11-17 2021-11-17 Travel 1.2.840.1 1.2.399.991 9509 594844 Methodi 00:00:00 00:00:[address] 3.430.2.7 0.2.7.3.698 Ho spita .3.386410 084.8 l .8 2021-11-14 2021-11-14 Orders Istre, 1.2.840.1 617662531 437816 1371 Methodi 00:00:00 00:00:00 Only Shell 01508.1.[address] Doe 3.430.2.7 Hospi ta .3.457729 l .8 2021-11-14 2021-11-14 Orders Istre, 1.2.840.1 262317945 283349 6848 Methodi 00:00:00 00:00:00 Only Shell 49033.1.[address] Doe 3.430.2.7 Hospi ta .3.197822 l .8 2021-11-11 2021-11-11 Telemedici Istre, 1.2.840.1 927588844 378 4865978 Methodi 10:00:00 10:40:34 ne Shell 46111.1.[address] [place] 3.430.2.7 Hospi ta .3.898545 l .8 2021-11-11 2021-11-11 Telemedici Istre, 1.2.840.1 121924953 513 3133364 Methodi 10:00:00 10:40:34 ne Shell 68809.1.[address] [place] 3.430.2.7 Hospi ta .3.795618 l .8 2021-11-07 2021-11-07 Emergency Noel, 1.2.840.1 657615513 2099 739529 Methodi 14:04:00 15:46:[address] Kirsten 3.430.2.7 Hospit a .3.753644 l .8 2021-11-07 2021-11-07 Emergency Noel, 1.2.840.1 115520742 2099246 Methodi 14:04:00 15:46:[address] Kirsten 3.430.2.7 Hospit a .3.077514 l .8 2021-11-07 2021-11-07 Travel 1.2.840.1 1.2.687.777 2360 247231 Methodi 00:00:00 00:00:[address] 3.430.2.7 0.2.7.3.698 Ho spita .3.502776 084.8 l .8 2021-11-07 2021-11-07 Travel 1.2.840.1 1.2.491.409 3827 452739 Methodi 00:00:00 00:00:[address] 3.430.2.7 0.2.7.3.698 Ho spita .3.035572 084.8 l .8 2021-11-03 2021-11-03 Lab Small, 1.2.840.1 823438780 207270 6490 Methodi 08:25:00 08:30:[address] Hasan 3.430.2.7 Hospit a .3.301396 l .8 2021-11-03 2021-11-03 Lab Small, 1.2.840.1 017355512 440488 6705 Methodi 08:25:00 08:30:[address] Hasan 3.430.2.7 Hospit a .3.543860 l .8 2021-11-03 2021-11-03 Telephone Alessio, 1.2.840.1 195970641 2099 405019 Methodi 00:00:00 00:00:[address] 3.430.2.7 Hospit a .3.399231 l .8 2021-11-03 2021-11-03 Travel 1.2.840.1 1.2.863.404 9852 207774 Methodi 00:00:00 00:00:[address] 3.430.2.7 0.2.7.3.698 Ho spita .3.217499 084.8 l .8 2021-11-03 2021-11-03 [facility] 3935221 [address] [place] 00:00:00 00:00:[address] PROCTOR [address] 2021-11-03 2021-11-03 Telephone Alessio, 1.2.840.1 [id number] 2099 720232 Methodi 00:00:00 00:00:[address] 3.430.2.7 Hospit a .3.724013 l .8 2021-11-03 2021-11-03 Travel 1.2.840.1 1.2.300.687 3453 325334 Methodi 00:00:00 00:00:[address] 3.430.2.7 0.2.7.3.698 Ho spita .3.738239 084.8 l .8 2021-10-29 2021-10-29 Documentat Judd, 1.2.840.1 687207943 2 732250810 Methodi 00:00:00 00:00:00 ion Amanda 36039.1.[address] 3.430.2.7 Hospit a .3.843467 l .8 2021-10-29 2021-10-29 Prep for Judd, 1.2.840.1 208035194 416 4369573 Methodi 00:00:00 00:00:00 Surgery Amanda 82395.1.[address] 3.430.2.7 Hospit a .3.358579 l .8 2021-10-29 2021-10-29 Telephone Judd, 1.2.840.1 990804545 21 18599753 Methodi 00:00:00 00:00:[address] 3.430.2.7 Hospit a .3.304331 l .8 2021-10-29 2021-10-29 Travel 1.2.840.1 1.2.042.954 9223 962235 Methodi 00:00:00 00:00:[address] 3.430.2.7 0.2.7.3.698 Ho spita .3.491665 084.8 l .8 2021-10-29 2021-10-29 Documentat Judd, 1.2.840.1 182110913 2 620552620 Methodi 00:00:00 00:00:00 ion Amanda 53157.1.[address] 3.430.2.7 Hospit a .3.473968 l .8 2021-10-29 2021-10-29 Prep for Binta, 1.2.840.1 755553408 138 0194104 Methodi 00:00:00 00:00:00 Surgery Amanda 43568.1.[address] 3.430.2.7 Hospit a .3.390899 l .8 2021-10-29 2021-10-29 Telephone Binta, 1.2.840.1 575268625 21 55941937 Methodi 00:00:00 00:00:[address] 3.430.2.7 Hospit a .3.781625 l .8 2021-10-29 2021-10-29 Travel 1.2.840.1 1.2.733.036 9570 832978 Methodi 00:00:00 00:00:[address] 3.430.2.7 0.2.7.3.698 spita .3.824343 084.8 l .8 2021-10-22 2021-10-22 Office Kem, 1.2.840.1 016117391 319 1084344 Methodi 09:40:00 10:17:00 Visit Rebecca Altagracia 41198.1.[address] 3.430.2.7 Hospit a .3.388655 l .8 2021-10-22 2021-10-22 Office Kem, 1.2.840.1 466015157 437 4726127 Methodi 09:40:00 10:17:00 Visit Rebeccawellington Nguyen 31494.1.[address] 3.430.2.7 Hospit a .3.826871 l .8 2021-10-22 2021-10-22 Travel 1.2.840.1 1.2.819.878 5459 143181 Methodi 00:00:00 00:00:[address] 3.430.2.7 0.2.7.3.698 Ho spita .3.850312 084.8 l .8 2021-10-22 2021-10-22 Travel 1.2.840.1 1.2.186.037 4545 900013 Methodi 00:00:00 00:00:[address] 3.430.2.7 0.2.7.3.698 Ho spita .3.848534 084.8 l .8 2021-10-14 2021-10-15 Emergency Adry, 1.2.840.1 256833504 381 7645589 Methodi 21:57:00 00:06:00 José H 87508.1.[address] 3.430.2.7 Hospit a .3.256697 l .8 2021-10-14 2021-10-15 Emergency Adry, 1.2.840.1 744417641 958 5874831 Methodi 21:57:00 00:06:00 José H [address]5325.1.[address] 3.430.2.7 Hospit a .3.969964 l .8 2021-10-12 2021-10-12 Emergency Hudson, 1.2.840.1 188878324 2099 209187 Methodi 10:13:00 14:37:00 Trung Swann 07511.1.[address] 3.430.2.7 Hospit a .3.528604 l .8 2021-10-12 2021-10-12 Emergency Hudson, 1.2.840.1 131641243 2099 553914 Methodi 10:13:00 14:37:00 [address]ann [address]203.1.[address] 3.430.2.7 Hospit a .3.969180 l .8 2021-10-09 2021-10-09 [place] TitaJuan Carlos 1.2.840.1 823556639 2945183901 Methodi 00:00:00 00:00:[address] 3.430.2.7 Hospit a .3.745246 l .8 2021-10-09 2021-10-09 [facility] [id number] [id number] Methodi 00:00:00 00:00:[address] 3.430.2.7 Hospit a .3.915881 l .8 2021-10-09 2021-10-09 Orders Istre, 1.2.840.1 069305613 650473 1798 Methodi 00:00:00 00:00:00 Only Shell 21959.1.[address] [place] 3.430.2.7 Hospi ta .3.271266 l .8 2021-10-09 2021-10-09 Telephone [facility] 1.2.840.1 017184167 [id number] Methodi 00:00:00 00:00:[address] 3.430.2.7 Hospit a .3.344417 l .8 2021-10-09 2021-10-09 Telephone [facility] 1.2.840.1 496035824 2506463874 Methodi 00:00:00 00:00:[address] 3.430.2.7 Hospit a .3.757122 l .8 2021-10-09 2021-10-09 Orders Istre, 1.2.840.1 108477049 560939 1555 Methodi 00:00:00 00:00:00 Only Shell 91848.1.[address] [place] 3.430.2.7 Hospi ta .3.574940 l .8 2021-10-02 2021-10-02 [facility] 1.2.840.1 [id number] 927 8353376 Methodi 00:00:00 00:00:[address] 3.430.2.7 Hospit a .3.803411 l .8 2021-10-02 2021-10-02 Telephone Amrussel, 1.2.840.1 250971517 230 5717056 Methodi 00:00:00 00:00:[address] 3.430.2.7 Hospit a .3.685276 l .8 2021-09-30 2021-09-30 Surgery Kem, 1.2.840.1 705202492 936 7089005 Methodi 07:15:00 09:02:00 Rebecca Nguyen 92260.1.[address] 3.430.2.7 Hospit a .3.464686 l .8 2021-09-30 2021-09-30 Surgery Kem, 1.2.840.1 451928458 943 3660807 Methodi 07:15:00 09:02:00 Rebecca Nguyen 86300.1.[address] 3.430.2.7 Hospit a .3.763680 l .8 2021-09-30 2021-09-30 [facility] Kem, 1.2.840.1 037613979 21 [id number] Methodi 06:02:00 08:50:00 Encounter Rebecca Nguyen 31450.1.[address] 3.430.2.7 Hospit a .3.728284 l .8 2021-09-30 2021-09-30 [facility] Kem, 1.2.840.1 254099246 21 [id number] Methodi 06:02:00 08:50:00 Encounter Rebecca Nguyen 63970.1.[address] 3.430.2.7 Hospit a .3.145190 l .8 2021-09-30 2021-09-30 Anesthesia Tomas Mattson 1.2.840.1 1045 28271 [id number] Methodi 07:05:00 08:04:00 Event Sunita Marie 70213.1.[address] 3.430.2.7 Hospit a .3.778359 l .8 2021-09-30 2021-09-30 Anesthesia Tomas Mattson 1.2.840.1 1045 93478 5628377411 Methodi 07:05:00 08:04:00 Event Sunita Marie 23936.1.[address] 3.430.2.7 Hospit a .3.113449 l .8 2021-09-26 2021-09-26 [facility] 2100 014732 [place] 00:00:00 00:00:00 REBECCA Baumann Method i st 2021-09-19 2021-09-19 Travel 1.2.840.1 1.2.917.201 0998 931929 Methodi 00:00:00 00:00:[address] 3.430.2.7 0.2.7.3.698 Ho spita .3.995591 084.8 l .8 2021-09-19 2021-09-19 Orders Marrero, 1.2.840.1 [id number] 2099 710688 Methodi 00:00:00 00:00:00 Only Sharon 47755.1.[address] 3.430.2.7 Hospit a .3.251674 l .8 2021-09-19 2021-09-19 Orders Tavares, 1.2.840.1 154428610 510080 0420 Methodi 00:00:00 00:00:00 Only Peggy 54238.1.[address] 3.430.2.7 Hospit a .3.096653 l .8 2021-09-19 2021-09-19 Travel 1.2.840.1 1.2.659.198 4677 926835 Methodi 00:00:00 00:00:[address] 3.430.2.7 0.2.7.3.698 Ho spita .3.396506 084.8 l .8 2021-09-19 2021-09-19 Orders Marrero, 1.2.840.1 [id number] 2099 411310 Methodi 00:00:00 00:00:00 Only Sharon 76211.1.[address] 3.430.2.7 Hospit a .3.075783 l .8 2021-09-19 2021-09-19 Orders Tavares, 1.2.840.1 040605284 815952 2566 Methodi 00:00:00 00:00:00 Only Peggy 76725.1.[address] 3.430.2.7 Hospit a .3.128207 l .8 2021-09-18 2021-09-18 Orders Propes, 1.2.840.1 998721051 519312 8618 Methodi 00:00:00 00:00:00 Only Pina 27654.1.[address] 3.430.2.7 Hospit a .3.891890 l .8 2021-09-18 2021-09-18 Orders Propes, 1.2.840.1 810496591 666882 4044 Methodi 00:00:00 00:00:00 Only Pina 89990.1.[address] 3.430.2.7 Hospit a .3.123390 l .8 2021-09-14 2021-09-14 Orders Tavares, 1.2.840.1 209969592 675235 4152 Methodi 00:00:00 00:00:00 Only Peggy 41012.1.[address] 3.430.2.7 Hospit a .3.438207 l .8 2021-09-14 2021-09-14 Orders Tavares, 1.2.840.1 027660663 289349 6214 Methodi 00:00:00 00:00:00 Only Peggy 10352.1.[address] 3.430.2.7 Hospit a .3.708919 l .8 2021-09-11 2021-09-11 Office Tavares, 1.2.840.1 817727651 085219 6318 Methodi 15:50:00 16:55:49 Visit Peggy 40099.1.[address] 3.430.2.7 Hospit a .3.080285 l .8 2021-09-11 2021-09-11 Office Tavares, 1.2.840.1 [id number] 748935 6933 Methodi 15:50:00 16:55:49 Visit Peggy 67615.1.[address] 3.430.2.7 Hospit a .3.915843 l .8 2021-09-11 2021-09-11 Travel 1.2.840.1 1.2.650.234 9772 895088 Methodi 00:00:00 00:00:[address] 3.430.2.7 0.2.7.3.698 Ho spita .3.435061 084.8 l .8 2021-09-11 2021-09-11 Travel 1.2.840.1 1.2.219.362 3280 490324 Methodi 00:00:00 00:00:[address] 3.430.2.7 0.2.7.3.698 Ho spita .3.252716 084.8 l .8 2021-09-10 2021-09-10 Office Kem, 1.2.840.1 [id number] 041 [id number] Methodi 10:40:00 11:03:05 Visit Rebecca Nguyen 80882.1.[address] 3.430.2.7 Hospit a .3.041467 l .8 2021-09-10 2021-09-10 Office Kem, 1.2.840.1 [id number] 108 [id number] Methodi 10:40:00 11:03:05 Visit Rebecca Nguyen 98315.1.[address] 3.430.2.7 Hospit a .3.635180 l .8 2021-09-10 2021-09-10 Jaclyn Wyatt, 1.2.840.1 [id number] 2099 222144 Methodi 00:00:00 00:00:00 Only Jami 34420.1.[address] 3.430.2.7 Hospit a .3.586738 l .8 2021-09-10 2021-09-10 Orders Edmundo, 1.2.840.1 [id number] 2099 618303 Methodi 00:00:00 00:00:00 Only Jami 74554.1.[address] 3.430.2.7 Hospit a .3.749808 l .8 2021-09-10 2021-09-10 Outpatient [facility] 2100 [id number] [place] 00:00:00 00:00:00 REBECCA Tran Method i st 2021-08-31 2021-08-31 Refill Istre, 1.2.840.1 [id number] 066552 5898 Methodi 00:00:00 00:00:[address] Doe 3.430.2.7 Hospi ta .3.924392 l .8 2021-08-31 2021-08-31 Refill Prasanth, 1.2.840.1 [id number] 350241 0325 Methodi 00:00:00 00:00:[address] 3.430.2.7 Hospit a .3.994483 l .8 2021-08-31 2021-08-31 Refill Istre, 1.2.840.1 065845033 001195 6995 Methodi 00:00:00 00:00:[address] [place] 3.430.2.7 Hospi ta .3.491781 l .8 2021-08-31 2021-08-31 Refill Prasanth, 1.2.840.1 [id number] 673922 4436 Methodi 00:00:00 00:00:[address] 3.430.2.7 Hospit a .3.478690 l .8 2021-08-29 2021-08-29 Telephone Denisse, 1.2.840.1 [id number] 2099 354524 Methodi 00:00:00 00:00:00 Indio Ray 87378.1.[address] 3.430.2.7 Hospit a .3.634078 l .8 2021-08-29 2021-08-29 Orders Istre, 1.2.840.1 005969631 550726 2686 Methodi 00:00:00 00:00:00 Only Shell 02804.1.[address] [place] 3.430.2.7 Hospi ta .3.155450 l .8 2021-08-29 2021-08-29 Telephone Denisse, 1.2.840.1 [id number] 2099 505295 Methodi 00:00:00 00:00:00 Ivy Ray 61130.1.[address] 3.430.2.7 Hospit a .3.263028 l .8 2021-08-29 2021-08-29 Orders Istre, 1.2.840.1 [id number] 604218 0609 Methodi 00:00:00 00:00:00 Only Shell 87559.1.[address] Doe 3.430.2.7 Hospi ta .3.959514 l .8 2021-08-28 2021-08-28 Travel 1.2.840.1 1.2.923.828 8709 373039 Methodi 00:00:00 00:00:[address] 3.430.2.7 0.2.7.3.698 Ho spita .3.906082 084.8 l .8 2021-08-28 2021-08-28 Travel 1.2.840.1 1.2.436.093 1205 725424 Methodi 00:00:00 00:00:[address] 3.430.2.7 0.2.7.3.698 Ho spita .3.658519 084.8 l .8 2021-08-26 2021-08-26 Emergency Mazin, 1.2.840.1 [id number] 2099 249429 Methodi 16:36:00 20:08:[address] [place] 3.430.2.7 Hospit a .3.582617 l .8 2021-08-26 2021-08-26 Emergency Mazin, 1.2.840.1 928131677 2100 174576 Methodi 16:36:00 20:08:[address] Adrienne 3.430.2.7 Hospit a .3.014319 l .8 2021-08-26 2021-08-26 Orders Colmenter, 1.2.840.1 [id number] 809 6790141 Methodi 00:00:00 00:00:00 Only Linda 22413.1.[address] 3.430.2.7 Hospit a .3.418830 l .8 2021-08-26 2021-08-26 Orders Colmenter, 1.2.840.1 574583750 524 0998427 Methodi 00:00:00 00:00:00 Only Linda 16749.1.[address] 3.430.2.7 Hospit a .3.056238 l .8 2021-08-21 2021-08-21 Orders Colmenter, 1.2.840.1 035122407 251 8938371 Methodi 00:00:00 00:00:00 Only Linda 66276.1.[address] 3.430.2.7 Hospit a .3.542255 l .8 2021-08-21 2021-08-21 Orders Colmenter, 1.2.840.1 182927303 291 3698638 Methodi 00:00:00 00:00:00 Only Linda 32117.1.[address] 3.430.2.7 Hospit a .3.758922 l .8 2021-08-14 2021-08-14 Office Colmenter, 1.2.840.1 644078537 328 4194630 Methodi 11:00:00 13:05:34 Visit Linda 91110.1.[address] 3.430.2.7 Hospit a .3.688507 l .8 2021-08-14 2021-08-14 Office Colmenter, 1.2.840.1 583511317 325 2594227 Methodi 11:00:00 13:05:34 Visit Linda 75270.1.[address] 3.430.2.7 Hospit a .3.969192 l .8 2021-08-12 2021-08-12 Office Prasanth, 1.2.840.1 638904972 283931 0745 Methodi 10:00:00 11:08:57 Visit Eddie Franco 60863.1.[address] 3.430.2.7 Hospit a .3.690810 l .8 2021-08-12 2021-08-12 Office Prasanth, 1.2.840.1 387465583 684253 8955 Methodi 10:00:00 11:08:57 Visit Eddie C. 98523.1.[address] 3.430.2.7 Hospit a .3.330221 l .8 2021-08-12 2021-08-12 Travel 1.2.840.1 1.2.491.359 0027 148381 [facility]i 00:00:00 00:00:[address] 3.430.2.7 0.2.7.3.698 Ho spita .3.428183 084.8 l .8 2021-08-12 2021-08-12 Travel 1.2.840.1 1.2.580.906 6761 286776 Methodi 00:00:00 00:00:[address] 3.430.2.7 0.2.7.3.698 Ho spita .3.811396 084.8 l .8 2021-08-08 2021-08-08 Emergency EM Lynda, [facility] [id number] 49 [facility] 12:48:00 19:41:00 Di 70 [facility] 2021-08-08 2021-08-08 Emergency EM [facility] [id number] [facility] 12:48:00 19:41:00 Di [id number] [facility] 2021-08-08 2021-08-08 Outpatient Lynda, HCACL LABO [id number] [facility] 19:09:00 19:09:00 Di 00 [facility] 2021-08-08 2021-08-08 Transcribe Istre, 1.2.840.1 [id number] 685 [id number] Methodi 00:00:00 00:00:00 Orders Shell 64187.1.[address] [place] 3.430.2.7 Hospi ta .3.186272 l .8 2021-08-08 2021-08-08 Transcribe Istre, 1.2.840.1 [id number] 921 [id number] Methodi 00:00:00 00:00:00 Orders Shell 73103.1.[address] [place] 3.430.2.7 Hospi ta .3.677714 l .8 2021-08-06 2021-08-06 Emergency Myles Martin 1.2.840.1 [id number] [id number] Methodi 14:54:00 18:50:[address] 3.430.2.7 Hospit a .3.308227 l .8 2021-08-06 2021-08-06 Emergency Myles Martin 1.2.840.1 421770636 [id number] Methodi 14:54:00 18:50:[address] 3.430.2.7 Hospit a .3.180596 l .8 2021-08-06 2021-08-06 Travel 1.2.840.1 1.2.321.547 0517 493506 Methodi 00:00:00 00:00:[address] 3.430.2.7 0.2.7.3.698 Ho spita .3.627793 084.8 l .8 2021-08-06 2021-08-06 Travel 1.2.840.1 1.2.510.062 5730 287800 Methodi 00:00:00 00:00:[address] 3.430.2.7 0.2.7.3.698 Ho spita .3.946627 084.8 l .8 2021-08-04 2021-08-04 Office Istre, 1.2.840.1 862341743 045175 0430 Methodi 14:20:00 15:33:19 Visit Shell 49584.1.[address] [place] [place] 3.430.2.7 Hospi ta .3.564926 l .8 2021-08-04 2021-08-04 Office Istre, 1.2.840.1 [id number] 6943 Methodi 14:20:00 15:33:19 Visit Shell 21311.1.[address] [place] 3.430.2.7 Hospi ta .3.483467 l .8 2021-08-04 2021-08-04 Travel 1.2.840.1 1.2.568.605 4911 278720 Methodi 00:00:00 00:00:[address] 3.430.2.7 0.2.7.3.698 Ho spita .3.970529 084.8 l .8 2021-08-04 2021-08-04 Travel 1.2.840.1 1.2.118.100 7338 793376 Methodi 00:00:00 00:00:[address] 3.430.2.7 0.2.7.3.698 Ho spita .3.128850 084.8 l .8 2021-07-31 2021-07-31 [facility] 1.2.840.1 [id number] Methodi 21:39:00 23:28:[address] 3.430.2.7 Hospit a .3.936935 l .8 2021-07-31 2021-07-31 [facility] 1.2.840.1 [id number] Methodi 21:39:00 23:28:[address] 3.430.2.7 Hospit a .3.462958 l .8 2021-07-31 2021-07-31 Travel 1.2.840.1 1.2.393.221 0560 471033 Methodi 00:00:00 00:00:[address] 3.430.2.7 0.2.7.3.698 Ho spita .3.316292 084.8 l .8 2021-07-31 2021-07-31 Travel 1.2.840.1 1.2.860.756 2622 844333 Methodi 00:00:00 00:00:[address] 3.430.2.7 0.2.7.3.698 Ho spita .3.850558 084.8 l .8 2021-07-30 2021-07-30 Emergency Myles Martin 1.2.840.1 [id number] Methodi 13:34:00 17:16:[address] 3.430.2.7 Hospit a .3.797323 l .8 2021-07-30 2021-07-30 Emergency Myles Martin 1.2.840.1 340739134 [id number] Methodi 13:34:00 17:16:[address] 3.430.2.7 Hospit a .3.419214 l .8 2021-07-30 2021-07-30 Telephone Istre, 1.2.840.1 [id number] 2099 248956 Methodi 00:00:00 00:00:[address] [place] 3.430.2.7 Hospi ta .3.214573 l .8 2021-07-30 2021-07-30 Telephone Istre, 1.2.840.1 [id number] 2099 404300 Methodi 00:00:00 00:00:[address] [place] 3.430.2.7 Hospi ta .3.850118 l .8 2021-07-28 2021-07-28 [facility] [id number] 879 [place] 00:00:00 00:00:[address] PEGGY [address] 2021-07-24 2021-07-24 Orders Lopez, 1.2.840.1 [id number] 42 Methodi 00:00:00 00:00:00 Only Maureen 63817.1.[address] 3.430.2.7 Hospit a .3.284037 l .8 2021-07-24 2021-07-24 Orders Lopez, 1.2.840.1 [id number] 42 Methodi 00:00:00 00:00:00 Only Maureen 57203.1.[address] 3.430.2.7 Hospit a .3.939318 l .8 2021-07-23 2021-07-23 Orders Istre, 1.2.840.1 728226786 408543 2608 Methodi 00:00:00 00:00:00 Only Shell 71265.1.[address] Doe 3.430.2.7 Hospi ta .3.440117 l .8 2021-07-23 2021-07-23 Orders Istre, 1.2.840.1 238791836 082533 4484 Methodi 00:00:00 00:00:00 Only Shell 87843.1.[address] Doe 3.430.2.7 Hospi ta .3.479417 l .8 2021-07-21 2021-07-21 Orders Istre, 1.2.840.1 084734587 382948 0674 Methodi 00:00:00 00:00:00 Only Shell 78612.1.[address] Doe 3.430.2.7 Hospi ta .3.368543 l .8 2021-07-21 2021-07-21 Orders Istre, 1.2.840.1 368152603 038729 4408 Methodi 00:00:00 00:00:00 Only Shell 22442.1.[address] Doe 3.430.2.7 Hospi ta .3.634025 l .8 2021-07-15 2021-07-15 Telephone Oleksandr, 1.2.840.1 [id number] 21 [id number] Methodi 00:00:00 00:00:[address] 3.430.2.7 Hospit a .3.966886 l .8 2021-07-15 2021-07-15 Travel 1.2.840.1 1.2.931.569 7263 105271 Methodi 00:00:00 00:00:[address] 3.430.2.7 0.2.7.3.698 Ho spita .3.291447 084.8 l .8 2021-07-15 2021-07-15 Telephone Leggett, 1.2.840.1 [id number] [id number] Methodi 00:00:00 00:00:[address] 3.430.2.7 Hospit a .3.817625 l .8 2021-07-15 2021-07-15 Travel 1.2.840.1 1.2.407.694 1385 127983 Methodi 00:00:00 00:00:[address] 3.430.2.7 0.2.7.3.698 Ho spita .3.446023 084.8 l .8 2021-07-10 2021-07-10 Treatment Shell Vargasrand 1.2.840.1 898066701 [id number] Methodi 09:00:00 10:00:00 Peggy Esparza 32754.1.[address] [place], Smooth 3.430.2.7 H ospita .3.677065 l .8 2021-07-10 2021-07-10 Treatment Shell Vargasrand 1.2.840.1 419059266 [id number] Methodi 09:00:00 10:00:00 Peggy Esparza 24903.1.[address] [place], [place]ooth 3.430.2.7 H ospita .3.166657 l .8 2021-07-10 2021-07-10 Plan of 1.2.840.1 884119049 837033 1856 Methodi 00:00:00 00:00:[address] Documentat 3.430.2.7 Hos margie ion .3.028851 l .8 2021-07-10 2021-07-10 Plan of 1.2.840.1 100782954 261912 7784 Methodi 00:00:00 00:00:[address] Documentat 3.430.2.7 Hos margie ion .3.077648 l .8 2021-07-09 2021-07-09 Travel 1.2.840.1 1.2.545.430 8240 122100 Methodi 00:00:00 00:00:[address] 3.430.2.7 0.2.7.3.698 Ho spita .3.452050 084.8 l .8 2021-07-09 2021-07-09 Orders Istre, 1.2.840.1 358674053 939104 6494 Methodi 00:00:00 00:00:00 Only Shell 36147.1.[address] [place] 3.430.2.7 Hospi ta .3.707901 l .8 2021-07-09 2021-07-09 Travel 1.2.840.1 1.2.241.533 5265 122100 Methodi 00:00:00 00:00:[address] 3.430.2.7 0.2.7.3.698 Ho spita .3.542095 084.8 l .8 2021-07-09 2021-07-09 Orders Istre, 1.2.840.1 941927532 640083 3350 Methodi 00:00:00 00:00:00 Only Shell 13690.1.[address] Doe 3.430.2.7 Hospi ta .3.698846 l .8 2021-07-03 2021-07-03 Travel 1.2.840.1 1.2.116.230 1005 391172 Methodi 00:00:00 00:00:[address] 3.430.2.7 0.2.7.3.698 Ho spita .3.038977 084.8 l .8 2021-07-03 2021-07-03 Travel 1.2.840.1 1.2.304.849 3605 941839 Methodi 00:00:00 00:00:[address] 3.430.2.7 0.2.7.3.698 Ho spita .3.324749 084.8 l .8 2021-06-30 2021-06-30 [facility] 1.2.840.1 704006041 [id number] Methodi 14:43:00 20:06:[address] 3.430.2.7 Hospit a .3.144983 l .8 2021-06-30 2021-06-30 [facility] 1.2.840.1 973071927 2846110393 Methodi 14:43:00 20:06:[address] 3.430.2.7 Hospit a .3.018450 l .8 2021-06-19 2021-06-19 Orders [place], 1.2.840.1 210203528 511579 1970 Methodi 00:00:00 00:00:00 Only Susanne 18739.1.[address] 3.430.2.7 Hospit a .3.522637 l .8 2021-06-19 2021-06-19 Orders [place], 1.2.840.1 564002030 183766 2568 Methodi 00:00:00 00:00:00 Only Susanne 13497.1.[address] 3.430.2.7 Hospit a .3.255053 l .8 2021-06-18 2021-06-18 Orders Marc, 1.2.840.1 157563870 918383 1752 Methodi 00:00:00 00:00:00 Only Kortney 85481.1.[address] 3.430.2.7 Hospit a .3.568897 l .8 2021-06-18 2021-06-18 Telephone Jessica, 1.2.840.1 011461456 863 9791613 Methodi 00:00:00 00:00:[address] 3.430.2.7 Hospit a .3.330226 l .8 2021-06-18 2021-06-18 Orders Marc, 1.2.840.1 352030820 133977 7603 Methodi 00:00:00 00:00:00 Only Kortney 04913.1.[address] 3.430.2.7 Hospit a .3.733667 l .8 2021-06-18 2021-06-18 Telephone Jessica, 1.2.840.1 [id number] 600 4582194 Methodi 00:00:00 00:00:[address] 3.430.2.7 Hospit a .3.388997 l .8 2021-06-16 2021-06-16 Office Prasanth, 1.2.840.1 211748270 079114 6865 Methodi 11:40:00 13:03:55 Visit Eddie Franco 68166.1.[address] 3.430.2.7 Hospit a .3.588003 l .8 2021-06-16 2021-06-16 Office Prasanth, 1.2.840.1 423183841 721543 1852 Methodi 11:40:00 13:03:55 Visit Eddie Franco 40687.1.[address] 3.430.2.7 Hospit a .3.921506 l .8 2021-06-16 2021-06-16 Travel 1.2.840.1 1.2.447.341 5139 777762 Methodi 00:00:00 00:00:[address] 3.430.2.7 0.2.7.3.698 Ho spita .3.998525 084.8 l .8 2021-06-16 2021-06-16 Travel 1.2.840.1 1.2.680.712 1916 016794 Methodi 00:00:00 00:00:[address] 3.430.2.7 0.2.7.3.698 Ho spita .3.541310 084.8 l .8 2021-06-03 2021-06-03 Refill Santy, 1.2.840.1 006272515 581696 1791 Methodi 00:00:00 00:00:[address] 3.430.2.7 Hospit a .3.585269 l .8 2021-06-03 2021-06-03 Telephone Abreu, 1.2.840.1 [id number] 2099 652467 Methodi 00:00:00 00:00:[address] 3.430.2.7 Hospit a .3.908867 l .8 2021-06-03 2021-06-03 Refill [place], 1.2.840.1 108671340 625814 3791 Methodi 00:00:00 00:00:[address] 3.430.2.7 Hospit a .3.103227 l .8 2021-06-03 2021-06-03 Telephone Abreu, 1.2.840.1 [id number] 2099 341730 Methodi 00:00:00 00:00:[address] 3.430.2.7 Hospit a .3.844192 l .8 2021-06-02 2021-06-02 Emergency Gunnar, 1.2.840.1 939673917 2 003139200 Methodi 10:56:00 13:23:00 Mario Armaan 35562.1.1 606 s t 3.430.2.7 Hospit a .3.470151 l .8 2021-06-02 2021-06-02 Emergency uGnnar, 1.2.840.1 807361467 2 230659192 Methodi 10:56:00 13:23:00 Mario Armaan 34362.1.1 606 s t 3.430.2.7 Hospit a .3.036349 l .8 2021-06-02 2021-06-02 Orders Istre, 1.2.840.1 510492590 464357 8035 Methodi 00:00:00 00:00:00 Only Shell 46416.1.[address] [place] 3.430.2.7 Hospi ta .3.382085 l .8 2021-06-02 2021-06-02 Orders Istre, 1.2.840.1 642029455 635495 2657 Methodi 00:00:00 00:00:00 Only Shell 61165.1.[address] [place] 3.430.2.7 Hospi ta .3.634457 l .8 2021-05-30 2021-05-30 Treatment Shell Vargas 1.2.840.1 179953762 3363563381 Methodi 10:00:00 11:00:00 Smooth [place] [address]109.1.[address] 3.430.2.7 Hospit a .3.746645 l .8 2021-05-30 2021-05-30 Treatment Shell Vargas 1.2.840.1 015451231 6632117815 Methodi 10:00:00 11:00:00 Smooth [place] [address]276.1.[address] 3.430.2.7 Hospit a .3.273851 l .8 2021-05-28 2021-05-28 Orders Istre, 1.2.840.1 906485312 792460 3788 Methodi 00:00:00 00:00:00 Only Shell 69342.1.[address] [place] 3.430.2.7 Hospi ta .3.214877 l .8 2021-05-28 2021-05-28 Orders Istre, 1.2.840.1 210227218 300609 0784 Methodi 00:00:00 00:00:00 Only Shell 49947.1.[address] [place] 3.430.2.7 Hospi ta .3.249815 l .8 2021-05-27 2021-05-27 Travel 1.2.840.1 1.2.931.677 5660 117647 Methodi 00:00:00 00:00:[address] 3.430.2.7 0.2.7.3.698 Ho spita .3.386787 084.8 l .8 2021-05-27 2021-05-27 Travel 1.2.840.1 1.2.696.796 0482 798319 Methodi 00:00:00 00:00:[address] 3.430.2.7 0.2.7.3.698 Ho spita .3.594104 084.8 l .8 2021-05-19 2021-05-19 Evaluation Shell Vargas 1.2.840.1 217445624 8925028403 Methodi 11:00:00 12:00:00 Peggy Esparza 21423.1.[address] [place], [place] 3.430.2.7 H ospita .3.946299 l .8 2021-05-19 2021-05-19 Plan of 1.2.840.1 582046585 754010 0381 Methodi 00:00:00 00:00:[address] Documentat 3.430.2.7 Hos margie ion .3.009323 l .8 2021-05-19 2021-05-19 Travel 1.2.840.1 1.2.546.912 6544 825187 Methodi 00:00:00 00:00:[address] 3.430.2.7 0.2.7.3.698 Ho spita .3.215335 084.8 l .8 2021-05-09 2021-05-09 Travel 1.2.840.1 1.2.869.663 7668 031893 Methodi 00:00:00 00:00:[address] 3.430.2.7 0.2.7.3.698 Ho spita .3.369566 084.8 l .8 2021-05-09 2021-05-09 [facility] [id number] 9[address] [place] 00:00:00 00:00:[address] EPGGY [address] 2021-05-06 2021-05-06 Orders Toni Vargas.2.840.1 [id number] 901022 7167 Methodi 00:00:00 00:00:00 Only Shell 69422.1.[address] [place] 3.430.2.7 Hospi ta .3.851059 l .8 2021-05-05 2021-05-05 [facility] [id number] 738 [place] 00:00:00 00:00:00 PEGGY [place] [facility] 2021-05-04 2021-05-04 [facility] 1.2.840.1 [id number] 837 4124819 Methodi 14:39:00 18:56:[address] 3.430.2.7 Hospit a .3.970993 l .8 2021-05-04 2021-05-04 Travel 1.2.840.1 1.2.203.215 6695 736006 Methodi 00:00:00 00:00:[address] 3.430.2.7 0.2.7.3.698 Ho spita .3.910500 084.8 l .8 2021-05-02 2021-05-02 Outpatient [facility] 52449 9559 [place] 00:00:00 00:00:00 [facility] 2021-04-30 2021-04-30 Travel 1.2.840.1 1.2.713.938 2980 023831 Methodi 00:00:00 00:00:[address] 3.430.2.7 0.2.7.3.698 Ho spita .3.843152 084.8 l .8 2021-04-28 2021-04-28 Orders Istre, 1.2.840.1 021300531 171303 1092 Methodi 00:00:00 00:00:00 Only Shell 53121.1.[address] [place] 3.430.2.7 Hospi ta .3.371892 l .8 2021-04-17 2021-04-17 Office Istre, 1.2.840.1 576671286 688096 1857 Methodi 15:00:00 15:00:06 Visit Shell 91493.1.[address] [place] 3.430.2.7 Hospi ta .3.013567 l .8 2021-04-16 2021-04-16 Travel 1.2.840.1 1.2.257.136 9463 322355 Methodi 00:00:00 00:00:[address] 3.430.2.7 0.2.7.3.698 Ho spita .3.207018 084.8 l .8 2021-04-12 2021-04-12 Emergency Svach, 1.2.840.1 [id number] 2099 032825 Methodi 15:47:00 22:48:00 Shine Nunes 69000.1.[address] 3.430.2.7 Hospit a .3.571071 l .8 2021-04-08 2021-04-08 Travel 1.2.840.1 1.2.407.480 9077 038491 Methodi 00:00:00 00:00:[address] 3.430.2.7 0.2.7.3.698 Ho spita .3.928241 084.8 l .8 2021-03-28 2021-03-28 Office Rj Khoury [facility] [id number] 1 [id number] [place] 08:30:00 09:30:00 [facility] 2021-03-28 2021-03-28 [facility] 989[facility] 6844 [place] 00:00:00 00:00:00 [facility] 2021-03-14 2021-03-14 [facility] 83849 1468 [place] 00:00:00 00:00:00 [facility] 2021-03-03 2021-03-03 Telephone Alicia, 1.2.840.1 [id number] 2099 540715 Methodi 11:20:00 11:48:51 Consult Shell 73215.1.[address] [place] 3.430.2.7 Hospi ta .3.935698 l .8 2021-02-27 2021-02-27 Travel 1.2.840.1 1.2.780.110 9862 176124 Methodi 00:00:00 00:00:00 55182.1.1 350.1.13.43 068 3.430.2.7 0.2.7.3.698 spita .3.503565 084.8 l .8 2021-02-19 2021-02-19 Outpatient VEJPONGSA, [facility] 2100 [id number] [place] 00:00:00 00:00:00 PIMPRAPA 626 [place] 2021-02-17 2021-02-17 Outpatient [facility] [id number] 297 [place] 00:00:00 00:00:00 482 Method i 2021-02-17 2021-02-17 Outpatient STACI, [facility] [id number] 406 [place] 00:00:00 00:00:00 PROCTOR 706 Method i 2021-02-10 2021-02-10 Outpatient TAVARES, [facility] [id number] 790 [place] 00:00:00 00:00:00 PEGGY 856 Method i 2021-02-07 2021-02-07 Outpatient ALICIA, [facility] [id number] 637 [place] 00:00:00 00:00:00 SHELL 793 Method i 2021-01-30 2021-01-31 Outpatient IMELDA, [facility] 814 [id number] 174 [place] 00:00:00 00:00:00 KRISTY 451 Method i 2021-01-25 2021-01-25 Emergency KENA KILLIAN [facility] 064 [id number] 40766 [place] 00:00:00 00:00:00 190 Method i 2021-01-24 2021-01-24 Outpatient VECHONGA, [facility] 2100 [id number] [place] 00:00:00 00:00:00 PIMPRAPA 711 Metho di 2021-01-09 2021-01-09 Outpatient [facility] [id number] 646 [place] 00:00:00 00:00:00 247 Method i 2020-12-29 2020-12-29 Emergency MICKEY, [facility] 064 [id number] 98 [place] 00:00:00 00:00:00 CRISTÓBAL 225 Method i 2020-12-23 2020-12-23 Outpatient PRASANTH, [facility] [id number] 498 [place] 00:00:00 00:00:00 EDDIE 305 Method i 2020-12-11 2020-12-11 Emergency MICKEY, [facility] 064 [id number] 96 [place] 00:00:00 00:00:00 CRISTÓBAL 030 Method i 2020-12-08 2020-12-08 Emergency TRISTAN, [facility] 064 [id number] 26 [place] 00:00:00 00:00:00 TRUNG 699 Method i 2020-11-25 2020-11-26 Office Doug Estevez [facility] Encounter/ Legacy 00:00:00 00:00:00 Visit Symone Moreau474 0391 Communi 638210 [facility] 2020-11-25 2020-11-26 Office Doug Estevez [facility] Encounter/ Legacy 00:00:00 00:00:00 Visit Symone Moreau [id number] 3572 Communi 408918 [facility] 2020-11-18 2020-11-18 Outpatient STACI, [facility] [id number] 074 [place] 00:00:00 00:00:00 PROCTOR 729 Method i 2020-11-02 2020-11-02 Emergency TERA, [facility] 089 [id number] 062 [place] 00:00:00 00:00:00 ROGER 241 Method i 2020-10-29 2020-10-29 Outpatient STACI, [facility] [id number] 857 [place] 00:00:00 00:00:00 PROCTOR 983 Method i 2020-10-25 2020-10-25 Outpatient VEJALTAGRACIAA, [facility] 2100 [id number] [place] 00:00:00 00:00:00 PIMPRAPA 573 Metho di 2020-10-24 2020-10-24 Outpatient VEJALTAGRACIAA, [facility] 2100 [id number] [place] 00:00:00 00:00:00 PIMPRAPA 921 Metho di 2020-10-18 2020-10-19 Emergency HOPE, [facility] 064 [id number] 58 [place] 00:00:00 00:00:00 TRUNG [address] 2020-10-18 2020-10-18 Outpatient SMALL, [facility] [id number] 110 [place] 00:00:00 00:00:00 PROCTOR [address] 2020-10-11 2020-10-11 Emergency HUDSON, [facility] 064 [id number] 52 [place] 00:00:00 00:00:00 TRUNG 080 Method i 2020-10-09 2020-10-09 Outpatient PRASANTH, [facility] [id number] 499 [place] 00:00:00 00:00:00 EDDIE 020 Method i 2020-10-01 2020-10-01 Outpatient AHMED, [facility] [id number] 980 [place] 00:00:00 00:00:00 MOHAMMAD 768 Meth[place] 2020-09-26 2020-09-26 Outpatient SMALL, [facility] [id number] 765 [place] 00:00:00 00:00:00 PROCTOR 047 Method i 2020-09-13 2020-09-13 Outpatient PRASANTH, [facility] [id number] 045 [place] 00:00:00 00:00:00 EDDIE [address] 2020-09-11 2020-09-11 Outpatient VEJPONGSA, [facility] 2100 [id number] [place] 00:00:00 00:00:00 PIMPRAPA 754 Metho di 2020-08-23 2020-08-23 Outpatient AHMED, [facility] [id number] 605 [place] 00:00:00 00:00:00 MOHAMMAD 132 Metho di 2020-08-19 2020-08-21 Outpatient MELTON, [facility] 771 [id number] 265 [place] 00:00:00 00:00:00 TRUNG 187 Method i 2020-07-31 2020-08-01 Outpatient ARREDONDO, [facility] [id number] 975 [place] 00:00:00 00:00:00 RG [address] 2020-07-16 2020-07-16 Emergency HOPE, [facility] 064 [id number] 18 [place] 00:00:00 00:00:00 TRUNG 600 Method i 2020-07-05 2020-07-05 Outpatient BROCK, [facility] [id number] 3696 [place] 00:00:00 00:00:00 [facility] 2020-07-05 2020-07-05 Emergency MICKEY, [facility] 064 [id number] 62 [place] 00:00:00 00:00:00 CRISTÓBAL [address] 2020-06-28 2020-06-28 Outpatient SMALL, [facility] [id number] 302 [place] 00:00:00 00:00:00 PROCTOR [address] 2020-06-27 2020-06-27 Outpatient PRASANTH, [facility] [id number] 221 [place] 00:00:00 00:00:00 EDDIE [address] 2020-06-24 2020-06-24 Outpatient ISTRE, [facility] [id number] 844 [place] 00:00:00 00:00:00 SHELL [address] 2020-06-19 2020-06-20 Emergency EPISCOPAL, [facility] 064 [id number] 53 [place] 00:00:00 00:00:00 NADIM [address] 2020-06-11 2020-06-11 Outpatient STACI, [facility] [id number] 229 [place] 00:00:00 00:00:00 PROCTOR [address] 2020-06-11 2020-06-11 Outpatient SMALL, [facility] [id number] 908 [place] 00:00:00 00:00:00 PROCTOR [address] 2020-06-06 2020-06-06 Outpatient ISTRE, [facility] [id number] 806 [place] 00:00:00 00:00:00 SHELL [address] 2020-06-03 2020-06-03 Outpatient ISTRE, [facility] [id number] 559 [place] 00:00:00 00:00:00 SHELL [address] 2020-06-03 2020-06-03 Outpatient ISTRE, [facility] [id number] 559 [place] 00:00:00 00:00:00 SHELL [address] 2020-05-26 2020-05-27 Outpatient SMALL, [facility] [id number] [place] 00:00:00 00:00:00 HAYLEE [address] 2020-05-24 2020-05-24 Emergency JOSSY, [place] [address] [id number] 24 [place] 00:00:00 00:00:00 BELKIS 964 [facility] 2020-05-23 2020-05-23 Emergency DASIA, [facility] 064 [id number] 56 [place] 00:00:00 00:00:00 TANIA 926 [facility] 2020 2020 Outpatient ISPHILLIP, [facility] [id number] [place] 00:00:00 00:00:00 SHELL 882 [facility] 2020 2020 Emergency KI, [facility] 064 [id number] 65 [place] 00:00:00 00:00:00 KALIF 304 [facility] 2020-05-20 2020-05-20 Outpatient ISTRE, [facility] [id number] [place] 00:00:00 00:00:00 SHELL 217 [facility] 2020-05-13 2020-05-13 [facility]patient [facility] [id number] [place] 00:00:00 00:00:00 TRAJULIO CESAR [place] 2020-05-11 2020-05-11 Emergency HOPE, [facility] [id number] 87 [place] 00:00:00 00:00:00 TRUNG 164 [facility] 2020-05-07 2020-05-07 Outpatient ROGER ZAPATA [facility] [id number] [place] 07:48:18 07:48:18 Health 2020-04-15 2020-04-15 Emergency KENA KILLIAN [facility] [id number] [place] 00:00:00 00:00:00 597 [facility] 2020-04-01 2020-04-01 Emergency MARIETIM, [facility] 064 [id number] 10 [place] 00:00:00 00:00:00 KALIF 631 [facility] 2020-03-23 2020-03-24 Inpatient SEPTROMAN, [facility] [id number] [place] 00:00:00 00:00:00 STEPHY 252 [facility] 2020-03-23 2020-03-23 Emergency HOPE, [facility] 064 [id number] 79 [place] 00:00:00 00:00:00 TRUNG 603 [facility] i 2020-03-20 2020-03-20 Emergency ALTAGRACIA VILLASENOR [facility] 064 [id number] [place] 00:00:00 00:00:00 875 [facility] 2020-02-29 2020-03-01 Emergency DE CRANDALL, [place] [address] [id number] [place] 00:00:00 00:00:00 CHRISTOPHER 731 Me thodi 2020-02-05 2020-02-06 Emergency ENE, [place] [address] [id number] [place] 00:00:00 00:00:00 KEM 185 Meth john 2020-02-03 2020-02-03 Emergency DE CRANDALL, [place] [address] [id number] [place] 00:00:00 00:00:00 CHRISTOPHER 451 Me thodi 2019-12-20 2019-12-21 Emergency ENE, [place] [address] [id number] [place] 00:00:00 00:00:00 KEM 640 Meth john 2019-12-14 2019-12-14 Emergency KI, [place] [address] [id number] 06 [place] 00:00:00 00:00:00 KALIF 126 [facility] 2019-12-11 2019-12-11 Emergency HOPE, [place] [address] [id number] 68 [place] 00:00:00 00:00:00 TRUNG 349 [facility] 2019-12-08 2019-12-08 Emergency SUSHIL, [place] [address] [id number] [place] 00:00:00 00:00:00 ISAC 449 Me thodi 2019-11-24 2019-11-24 Outpatient ROGER ZAPATA [facility] [id number] [place] 00:00:00 00:00:00 [facility] 2019-11-21 2019-11-21 Emergency BEAN, [facility]4 [id number] [place] 00:00:00 00:00:00 015 [facility] 2019-11-14 2019-11-14 Outpatient ROGER ZAPATA [facility] [id number] [place] 06:55:06 06:55:06 Health 2019-11-13 2019-11-13 Outpatient [facility] [id number] [place] 00:00:00 00:00:00 [facility] 2019-11-10 2019-11-11 Emergency HOPE, [place] [address] [id number] 84 [place] 00:00:00 00:00:00 TRUNG 398 [facility] 2019-11-07 2019-11-07 Outpatient [facility] [id number] [place] 14:24:03 14:24:03 Health 2019-11-07 2019-11-07 Outpatient [facility] [id number] [place] 12:22:44 12:22:44 Health 2019-11-07 2019-11-07 Outpatient [facility] [id number] [place] 00:00:00 00:00:00 2019-11-07 2019-11-07 Outpatient [facility] [id number] [place] 00:00:00 00:00:00 Health 2019-10-30 2019-10-30 Outpatient [facility] [id number] [place] 11:49:58 11:49:58 Health 2019-10-30 2019-10-30 Outpatient [facility] [id number] [place] 00:00:00 00:00:00 Health 2019-10-12 2019-10-12 Outpatient [facility] [id number] [place] 00:00:00 00:00:00 2019-10-10 2019-10-10 Outpatient [facility] [id number] [place] 08:15:33 08:15:33 2019-10-09 2019-10-09 Outpatient [facility] [id number] [place] 00:00:00 00:00:00 2019-09-25 2019-09-25 Outpatient [facility] [id number] [place] 00:00:00 00:00:00 Health 2019-09-19 2019-09-19 Outpatient [facility] [id number] [place] 15:17:15 15:17:15 Health 2019-09-12 2019-09-12 Outpatient [facility] [id number] [place] 09:33:27 09:33:27 Health 2019-09-12 2019-09-12 Outpatient [facility] [id number] [place] 08:35:47 08:35:47 Health 2019-09-12 2019-09-12 Outpatient [facility] [id number] [place] 00:00:00 00:00:00 2019-09-09 2019-09-09 Emergency HOPE, [facility] [id number] 57 [place] 00:00:00 00:00:00 TRUNG Wilks[address] [facility] 2019-08-25 2019-08-25 Outpatient [facility] [id number] [place] 06:54:32 06:54:32 Health 2019-08-24 2019-08-24 Outpatient [facility] [id number] [place] 00:00:00 00:00:00 2019-08-23 2019-08-23 Outpatient [facility] [id number] [place] 00:00:00 00:00:00 Health 2019-08-05 2019-08-05 Emergency [facility]4 [id number] 83 [place] 00:00:00 00:00:00 OTILIO, Jaci2 [facility] 2019-08-03 2019-08-03 Emergency [facility]4 [id number] [place] 00:00:00 00:00:[address] 2019-07-24 2019-07-24 Outpatient [facility] [id number] [place] 08:35:14 08:35:14 Health 2019-06-21 2019-06-21 Outpatient [facility] [id number] [place] 00:00:00 00:00:00 Health 2019-06-15 2019-06-16 Emergency HOPE, [facility] 064 [id number] 79 [place] 00:00:00 00:00:00 [address] 2019-06-15 2019-06-15 Emergency [facility] [id number] [place] 14:03:00 14:03:00 Health 2019-06-14 2019-06-14 Outpatient [facility] [id number] [place] 00:00:00 00:00:00 Health 2019-06-08 2019-06-08 Outpatient [facility] [id number] [place] 13:49:26 13:49:26 Health 2019-06-08 2019-06-08 Outpatient [facility] [id number] [place] 13:11:00 13:11:00 Health 2019-06-08 2019-06-08 Outpatient [facility] [id number] [place] 00:00:00 00:00:00 Health 2019-06-07 2019-06-07 Emergency [facility] [id number] [place] 12:06:12 12:06:12 Health 2019-06-07 2019-06-07 Emergency [facility] [id number] [place] 10:57:48 10:57:48 Health 2019-03-15 2019-03-15 Outpatient [facility] [id number] [place] 14:00:36 14:00:36 Health 2019-03-15 2019-03-15 Outpatient [facility] [id number] [place] 12:20:09 12:20:09 Health 2019-03-15 2019-03-15 Outpatient [facility] [id number] [place] 00:00:00 00:00:00 Health 2019-01-25 2019-01-25 Outpatient [facility] [id number] [place] 10:20:47 10:20:47 Health 2019-01-13 2019-01-13 Outpatient [facility] [id number] [place] 10:25:55 10:25:55 Health 2019-01-03 2019-01-03 Outpatient [facility] [id number] [place] 10:33:43 10:33:43 Health 2019-01-03 2019-01-03 Outpatient [facility] [id number] [place] 08:40:50 08:40:50 Health 2019-01-03 2019-01-03 Outpatient [facility] [id number] [place] 07:58:31 07:58:31 Health 2019-01-03 2019-01-03 Outpatient [facility] [id number] [place] 00:00:00 00:00:00 [facility] 2018-12-29 2018-12-29 Outpatient [facility] [id number] [place] 00:00:00 00:00:00 [facility] 2018-12-27 2018-12-27 Outpatient [facility] [id number] [place] 00:00:00 00:00:00 [facility] 2018-12-26 2018-12-26 Outpatient [facility] [id number] [place] 16:37:58 16:37:58 Health 2018-12-09 2018-12-09 Outpatient [facility] [id number] [place] 16:51:56 16:51:56 [facility] 2018-12-09 2018-12-09 Outpatient [facility] [id number] [place] 14:15:31 14:15:31 Health 2018-12-09 2018-12-09 Outpatient [facility] [id number] [place] 00:00:00 00:00:00 [facility] 2018-11-26 2018-11-26 Emergency [facility] [id number] [place] 16:08:40 16:08:40 [facility] 2018-01-17 2018-01-[address] [facility] [id number] [place] 10:49:00 12:30:00 [facility] 2017-12-28 2017-12-28 Outpatient E AQUINO, [facility] [id number] [place] 10:12:00 12:25:00 [facility] [place] 2017-12-20 2017-12-20 Outpatient E MYRNA CEDENO [facility] [id number] [place] 23:13:00 23:50:00 [facility] 2017-10-15 2017-10-15 Outpatient E SHEIKH [facility] [id number] [place] 09:57:00 11:15:00 WASIM [facility] [place] Results Test Description Test Time Test Comments Results Result Comments Source ECG [address] [place] [address] 2022-03-24 04:27:49 Test Item Value Reference Range Interpretation Comme nts Ventricular rate (test code = 253) Atrial rate (test code = 255) DC interval (test code = 266) QRSD interval [...] of 28-NOV-2021 10:26,-No significant change was found- [address]2022-12-13 04:27:49 Test Item Value Reference Range Interpretation Comments Ventricular rate (test code = 253) Atrial rate (test code = 255) DC interval (test code = 266) QRSD interval [...] of 28-NOV-2021 10:26,-No significant change was found- [address]2022-12-13 04:27:49 Test Item Value Reference Range Interpretation Comments Ventricular rate (test code = 253) Atrial rate (test code = 255) DC interval (test code = 266) QRSD interval [...] 10:26,-No significant change was found- [facility] 12 [id number] 04:27:49 Test Item Value Reference Range Interpretation Comments Ventricular rate (test 71 code = 253) Atrial rate (test code 71 = 255) DC interval (test code 124 = 266) QRSD interval (test 76 code = 260) QT interval (test code 396 = 264) QTC interval (test code 430 = 265) P axis 1 (test code = 70 267) QRS axis 1 (test code = 64 268) T wave axis (test code 22 = 270) EKG impression (test Normal sinus rhythm code = 273) with sinus arrhythmia-Normal ECG-In automated comparison with ECG of 28-NOV-2021 10:26,-No significant change was found- [facility]2022-11-10 23:39:00 Test Item Value Reference Range Interpretation Comments Urine culture (test SEE COMMENT Bacteriu brandon screen code = 3694792) negative. [facility]2022-11-10 23:39:00 Test Item Value Reference Range Interpretation Comments Urine culture (test SEE COMMENT Bacteriu brandon screen code = 1140896) negative. [facility]2022-11-10 23:39:00 Test Item Value Reference Range Interpretation Comments Urine culture (test SEE COMMENT Bacteriu brandon screen code = 8749080) negative. [facility]2022-11-10 23:39:00 Test Item Value Reference Range Interpretation Comments Urine culture (test SEE COMMENT Bacteriu brandon screen code = 4820338) negative. [facility]2022-11-10 23:39:00 Test Item Value Reference Range Interpretation Comments Urine culture (test SEE COMMENT Bacteriu brandon screen code = 0058570) negative. [facility] [id number] 23:39:00 Test Item Value Reference Range Interpretation Comments Urine culture (test SEE COMMENT Bacteriu brandon screen code = 6791310) negative. [facility]2022-11-10 23:39:00 Test Item Value Reference Range Interpretation Comments Urine culture (test SEE COMMENT Bacteriu brandon screen code = 9169095) negative. [facility] B surface [id number] 22:17:00 Test Item Value Reference Range Interpretation Comments Hepatitis B surface NON-REACTIVE NON-REACTIVE Ag (test code = 5196-1) RAC (test code = RAC) Performing Organization Information: Site ID: BEBA Name: [facility] Address: [address] [place] [address] Director: Rajinder Grant [facility] with reflex to [id number] 22:17:00 Test Item Value Reference Range Interpretation Comments RPR (test code = NON-REACTIVE NON-REACTIVE 73104-3) RAC (test code = Performing Organization RAC) Information: Site ID: RGA Name: [facility] Address: [address] [place] [address] Director: Rajinder Grant [facility] C virus (HCV), quantitative [id number] 22:17:00 Test Item Value Reference Interpretation Comments Range HCV RNA, <15 NOT DETECTED NOT DETECTED quantitative PCR IU/mL (test code = 72488-4) HCV viral log <1.18 NOT DETECTED NOT DETECTED This bhupendra t was (test code = Log IU/mL performed using 34012-1) Real-Time Polym erase ChainReaction. Reportable Rang e: 15 IU/mL to 100,00 0,000 IU/mL(1.18 Log IU/mL to 8.00 Log IU/ mL). The analytical performance characteristics of thisassay have been determined by [facility]. Th e modifications h ave not been cleare d or approved bythe FDA. This assay has been validated pursu ant to the CLIA regulations and is used for clinic al purposes. For m ore information on this test, go to:http://educa tion. iPG [employer] /faq/ZLL45e0(Th is link is being provided for informational/e ducat ional purposes only.) RAC (test code = Performing RAC) Organization Information: Site ID: IG Name: [facility] Address: [address] [place] [address] Director: Dr. Rajinder Grant [facility] C [id number] 22:17:00 Test Item Value Reference Interpretation Comments Range Hepatitis C Ab (test REACTIVE NON-REACTIVE A code = 57801-7) Signal/cutoff (test >11.00 See_Comment H Based o n this code = 94384-1) result, the sample will be testedf or [...] RAC) Organization Information: Site ID: RGA Name: [facility] Address: [address] [place] [address] Director: Rajinder Grant Lab Interpretation Abnormal (test code = 11087-5) [facility] type 1/2 combined Ab, [id number] 22:17:00 Test Item Value Reference Interpretation Comments Range HSV 1 IgM NEGATIVE (test code = 50722-3) HSV 2 IgM NEGATIVE REFERENCE RANG E: NEGATIVE HSV (test IgM is detectab le in serum code = [facility] >90[facility] [address]-0) primary HSV inf ection. However, HSV Ig [...] performancechar acteristics have been deter mined by [employer].It has not been cleared or appr luis by FDA. This assay hasb een validated pursuant to the CLIA regulations and isused for clinical purpos es. RAC (test Performing code = Organization RAC) Information: Site ID: EZ Name: [facility]/[facility], Address: [address] [place] [address] Director: Crista Camacho MD,PhD,[facility]2 antigen/antibody, fourth generation, with reflexes 2022-02-11 22:17:00 Test Item Value Reference Range Interpretation Comments HIV NON-REACTIVE NON-REACTIVE HIV-1 antigen a nd antigen/ant HIV-1/HIV-2 ant ibodies ibody 4th were notdetecte d. There gen (test is no laborator y evidence code = of HIVinfection . PLEASE 60174-4) NOTE: This info rmation has been disclo theresa liv from records wh ose confidentiality may [...] ad ditional information ple ase refer tohttp://educat ion.Taptera/ faq/CXI133 (This link is b eing provided for informational/e ducational purposes only.) The performance of this assay has not been clinicallyvalid ated in patients less t lagunas 2 years old. RAC (test Performing code = RAC) Organization Information: Site ID: RGA Name: [facility] Address: [address] [place] [address] Director: Rajinder Grant [facility] HospitalHSV 1 and 2 specific Ab [id number] 22:17:00 Test Item Value Reference Interpretation Comments [...] ease refer to http://educatio n.Ques tDiagnostics.co m/faq/ YIB743 (This li nk is being provided for informational/e ducati onal purposes o nly.) RAC (test code = Performing RAC) Organization Information: Site ID: IG Name: [facility] Address: [address] [place] [address] Director: Dr. Rajinder Grant Lab Interpretation Abnormal (test code = 34807-3) [facility] [id number] 22:17:00 Test Item Value Reference Range Interpretation Comments Hepatitis B surface NON-REACTIVE NON-REACTIVE Ag (test code = 5196-1) RAC (test code = RAC) Performing Organization Information: Site ID: RGA Name: [facility] Address: [address] [place] [address] Director: Rajinder Grant [facility] HospitalRPR with reflex to [id number] 22:17:00 Test Item Value Reference Range Interpretation Comments RPR (test code = NON-REACTIVE NON-REACTIVE 65486-0) RAC (test code = Performing Organization RAC) Information: Site ID: RGA Name: [facility] Address: [address] [place] [address] Director: Rajinder Grant [facility] C virus (HCV), quantitative [id number] 22:17:00 Test Item Value Reference Interpretation Comments Range HCV RNA, <15 NOT DETECTED NOT DETECTED quantitative PCR IU/mL (test code = 76010-7) HCV viral log <1.18 NOT DETECTED NOT DETECTED This bhupendra t was (test code = Log IU/mL performed using 15925-5) Real-Time Polym erase ChainReaction. Reportable Rang e: 15 IU/mL to 100,00 0,000 IU/mL(1.18 Log IU/mL to 8.00 Log IU/ mL). The analytical performance characteristics of thisassay have been determined by [facility]. Th e modifications h ave not been cleare d or approved bythe FDA. This assay has been validated pursu ant to the CLIA regulations and is used for clinic al purposes. For m ore information on this test, go to:http://educa Credit Coachon. i[employer] /faq/GSP43m8(Th is link is being provided for informational/e ducat ional purposes only.) RAC (test code = Performing RAC) Organization Information: Site ID: IG Name: [facility] Address: [address] [place] [address] Director: Dr. Rajinder Grant [facility] HospitalHepacifica [facility] C [id number] 22:17:00 Test Item Value Reference Interpretation Comments Range Hepatitis C Ab (test REACTIVE NON-REACTIVE A code = 56232-8) Signal/cutoff (test >11.00 See_Comment H Based o n this code = 72152-4) result, the sample will be testedf or [...] RAC) Organization Information: Site ID: RGA Name: [facility] Address: [address] [place] [address] Director: Rajinder Grant Lab Interpretation Abnormal (test code = 97964-3) [facility] type 1/2 combined Ab, [id number] 22:17:00 Test Item Value Reference Interpretation Comments Range HSV 1 IgM NEGATIVE (test code = 84061-2) HSV 2 IgM NEGATIVE REFERENCE RANG E: NEGATIVE HSV (test IgM is detectab le in serum code = from >90% of [place] [facility] [address]-1) primary HSV inf ection. However, HSV Ig [...] performancechar acteristics have been deter mined by [employer].It has not been cleared or appr luis by FDA. This assay hasb een validated pursuant to the CLIA regulations and isused for clinical purpos es. RAC (test Performing code = Organization RAC) Information: Site ID: EZ Name: [employer]/[facility], Address: [address] [place] [address] Director: Crista Camacho MD,PhD,BARI [facility] HospitalHIV 1/2 antigen/antibody, fourth generation, with reflexes 2022-02-11 22:17:00 Test Item Value Reference Range Interpretation Comments HIV NON-REACTIVE NON-REACTIVE HIV-1 antigen a nd antigen/ant HIV-1/HIV-2 ant ibodies ibody 4th were notdetecte d. There gen (test is no laborator y evidence code = of HIVinfection . PLEASE 55729-4) NOTE: This info rmation has been disclo [...] ad ditional information ple ase refer tohttp://educat ion.Friendfer.[employer]/ faq/EGK358 (This link is b eing provided for informational/e ducational purposes only.) The performance of this assay has not been clinicallyvalid ated in patients less t lagunas 2 years old. RAC (test Performing code = RAC) Organization Information: Site ID: RGA Name: [facility] Address: [address] [place] [address] Director: Rajinder Grant [facility] HospitalHSV 1 and 2 specific Ab [id number] 22:17:00 Test Item Value Reference Interpretation Comments [...] ease refer to http://educatio nReza tDiagnostics.co m/faq/ UFH350 (This li nk is being provided for informational/e ducati onal purposes o nly.) RAC (test code = Performing RAC) Organization Information: Site ID: IG Name: [facility] Address: [address] [place] [address] Director: Dr. Rajinder Grant Lab Interpretation Abnormal (test code = 73215-1) [facility] HospitalHewilli[facility] hospitaltis B surface [id number] 22:17:00 Test Item Value Reference Range Interpretation Comments Hepatitis B surface NON-REACTIVE NON-REACTIVE Ag (test code = 5196-1) RAC (test code = RAC) Performing Organization Information: Site ID: RGA Name: [facility] Address: [address] [place] [address] Director: Rajinder Grant [facility] HospitalRPR with reflex to [id number] 22:17:00 Test Item Value Reference Range Interpretation Comments RPR (test code = NON-REACTIVE NON-REACTIVE 19918-8) RAC (test code = Performing Organization RAC) Information: Site ID: RGA Name: [facility] Address: [address] [place] [address] Director: Rajinder Grant [facility] C virus (HCV), quantitative [id number] 22:17:00 Test Item Value Reference Interpretation Comments Range HCV RNA, <15 NOT DETECTED NOT DETECTED quantitative PCR IU/mL (test code = 86170-5) HCV viral log <1.18 NOT DETECTED NOT DETECTED This bhupendra t was (test code = Log IU/mL performed using 34708-4) Real-Time Polym erase ChainReaction. Reportable Rang e: 15 IU/mL to 100,00 0,000 IU/mL(1.18 Log IU/mL to 8.00 Log IU/ mL). The analytical performance characteristics of thisassay have been determined by [facility]. Th e modifications h ave not been cleare d or approved bythe FDA. This assay has been validated pursu ant to the CLIA regulations and is used for clinic al purposes. For m ore information on this test, go to:http://educa tion. iPG [employer] /faq/YKD56d7( is link is being provided for informational/e ducat ional purposes only.) RAC (test code = Performing RAC) Organization Information: Site ID: IG Name: [facility] Address: [address] [place] [address] Director: Dr. Rajinder Grant [facility] C [id number] 22:17:00 Test Item Value Reference Interpretation Comments Range Hepatitis C Ab (test REACTIVE NON-REACTIVE A code = 36032-1) Signal/cutoff (test >11.00 See_Comment H Based o n this code = 72825-6) result, the sample will be testedf or [...] RAC) Organization Information: Site ID: RGA Name: [facility] Address: [address] [place] [address] Director: Rajinder Grant Lab Interpretation Abnormal (test code = 07667-6) [facility] type 1/2 combined Ab, [id number] 22:17:00 Test Item Value Reference Interpretation Comments Range HSV 1 IgM NEGATIVE (test code = 81285-0) HSV 2 IgM NEGATIVE REFERENCE RANG E: NEGATIVE HSV (test IgM is detectab le in serum code = from >90% of [place] tracey 64563-6) primary HSV inf ection. However, HSV Ig [...] performancechar acteristics have been deter mined by [employer].It has not been cleared or appr luis by FDA. This assay hasb een validated pursuant to the CLIA regulations and isused for clinical purpos es. RAC (test Performing code = Organization RAC) Information: Site ID: EZ Name: [employer]/[facility], Address: [address] [place] [address] Director: Crista Camacho MD,PhD,[facility] HospitalHIV 1/2 antigen/antibody, fourth generation, with reflexes 2022-02-11 22:17:00 Test Item Value Reference Range Interpretation Comments HIV NON-REACTIVE NON-REACTIVE HIV-1 antigen a nd antigen/ant HIV-1/HIV-2 ant ibodies ibody 4th were notdetecte d. There gen (test is no laborator y evidence code = of HIVinfection . PLEASE 74703-2) NOTE: This info rmation has been disclo [...] ad ditional information ple ase refer tohttp://educat ion.Friendfer.[employer]/ faq/XPH361 (This link is b eing provided for informational/e ducational purposes only.) The performance of this assay has not been clinicallyvalid ated in patients less t lagunas 2 years old. RAC (test Performing code = RAC) Organization Information: Site ID: BEBA Name: [facility] Address: [address] [place] [address] Director: Rajinder Grant [facility] HospitalHSV 1 and 2 specific Ab [id number] 22:17:00 Test Item Value Reference Interpretation Comments [...] ease refer to http://educatio n.Tri tDiagnostics.co m/faq/ HBY144 (This li nk is being provided for informational/e ducati onal purposes o nly.) RAC (test code = Performing RAC) Organization Information: Site ID: IG Name: [facility] Address: [address] [place] [address] Director: Dr. Rajinder Grant Lab Interpretation Abnormal (test code = 79971-0) [facility] HospitalHepatitis B surface [id number] 22:17:00 Test Item Value Reference Range Interpretation Comments Hepatitis B surface NON-REACTIVE NON-REACTIVE Ag (test code = 5196-1) RAC (test code = RAC) Performing Organization Information: Site ID: RGA Name: [facility] Address: [address] [place] [address] Director: Rajinder Grant [facility]RP with reflex to [id number] 22:17:00 Test Item Value Reference Range Interpretation Comments RPR (test code = NON-REACTIVE NON-REACTIVE 78646-5) RAC (test code = Performing Organization RAC) Information: Site ID: RGA Name: [facility] Address: [address] [place] [address] Director: Rajinder Grant [facility] C virus (HCV), quantitative [id number] 22:17:00 Test Item Value Reference Interpretation Comments Range HCV RNA, <15 NOT DETECTED NOT DETECTED quantitative PCR IU/mL (test code = 95669-7) HCV viral log <1.18 NOT DETECTED NOT DETECTED This bhupendra t was (test code = Log IU/mL performed using 11769-1) Real-Time Polym erase ChainReaction. Reportable Rang e: 15 IU/mL to 100,00 0,000 IU/mL(1.18 Log IU/mL to 8.00 Log IU/ mL). The analytical performance characteristics of thisassay have been determined by [facility]. Th e modifications h ave not been cleare d or approved bythe FDA. This assay has been validated pursu ant to the CLIA regulations and is used for clinic al purposes. For m ore information on this test, go to:http://educa tion. iPG [employer] /faq/QLR59a8(Th is link is being provided for informational/e ducat ional purposes only.) RAC (test code = Performing RAC) Organization Information: Site ID: IG Name: [facility] Address: [address] [place] [address] Director: Dr. Rajinder Grant [facility] C [id number] 22:17:00 Test Item Value Reference Interpretation Comments Range Hepatitis C Ab (test REACTIVE NON-REACTIVE A code = 96805-5) Signal/cutoff (test >11.00 See_Comment H Based o n this code = 84006-8) result, the sample will be testedf or [...] RAC) Organization Information: Site ID: RGA Name: [facility] Lab Address: [address] [place] [address] Director: Rajinder Grant Lab Interpretation Abnormal (test code = 44077-6) [facility] type 1/2 combined Ab, [id number] 22:17:00 Test Item Value Reference Interpretation Comments Range HSV 1 IgM NEGATIVE (test code = 90484-2) HSV 2 IgM NEGATIVE REFERENCE RANG E: NEGATIVE HSV (test IgM is detectab le in serum code = [facility] >90[facility] [address]-7) primary HSV inf ection. However, HSV Ig [...] performancechar acteristics have been deter mined by [employer].It has not been cleared or appr luis by FDA. This assay hasb een validated pursuant to the CLIA regulations and isused for clinical purpos es. RAC (test Performing code = Organization RAC) Information: Site ID: EZ Name: [employer], Address: [address] [place] [address] Director: Crista Camacho MD,PhD,BARI [facility]HIV 1/2 antigen/antibody, fourth generation, with reflexes 2022-02-11 22:17:00 Test Item Value Reference Range Interpretation Comments HIV NON-REACTIVE NON-REACTIVE HIV-1 antigen a nd antigen/ant HIV-1/HIV-2 ant ibodies ibody 4th were notdetecte d. There gen (test is no laborator y evidence code = of HIVinfection . PLEASE 02546-9) NOTE: This info rmation has been disclo [...] ad ditional information ple ase refer tohttp://educat ion.Taptera/ faq/AOO508 (This link is b eing provided for informational/e ducational purposes only.) The performance of this assay has not been clinicallyvalid ated in patients less t lagunas 2 years old. RAC (test Performing code = RAC) Organization Information: Site ID: RGA Name: [facility] Address: [address] [place] [address] Director: Rajinder Grant [facility] HospitalV 1 and 2 specific Ab [id number] 22:17:00 Test Item Value Reference Interpretation Comments [...] ease refer to http://educatio n.Ques tDiagnostics.co m/faq/ ZFL148 (This li nk is being provided for informational/e ducati onal purposes o nly.) RAC (test code = Performing RAC) Organization Information: Site ID: IG Name: [facility] Lab Address: [address] [place] [address] Director: Dr. Rajinder Grant Lab Interpretation Abnormal (test code = 28486-4) [facility] B surface [id number] 22:17:00 Test Item Value Reference Range Interpretation Comments Hepatitis B surface NON-REACTIVE NON-REACTIVE Ag (test code = 5196-1) RAC (test code = RAC) Performing Organization Information: Site ID: RGA [facility]: [facility] Address: [address] [place] [address] Director: Rajinder Grant [facility] with reflex to [id number] 22:17:00 Test Item Value Reference Range Interpretation Comments RPR (test code = NON-REACTIVE NON-REACTIVE 12948-8) RAC (test code = Performing Organization RAC) Information: Site ID: RGA Name: [facility] Address: [address] [place] [address] Director: Rajinder Grant [facility] C virus (HCV), quantitative [id number] 22:17:00 Test Item Value Reference Interpretation Comments Range HCV RNA, <15 NOT DETECTED NOT DETECTED quantitative PCR IU/mL (test code = 23883-6) HCV viral log <1.18 NOT DETECTED NOT DETECTED This bhupendra t was (test code = Log IU/mL performed using 90925-9) Real-Time Polym erase ChainReaction. Reportable Rang e: 15 IU/mL to 100,00 0,000 IU/mL(1.18 Log IU/mL to 8.00 Log IU/ mL). The analytical performance characteristics of thisassay have been determined by [facility]. Th e modifications h ave not been cleare d or approved bythe FDA. This assay has been validated pursu ant to the CLIA regulations and is used for clinic al purposes. For m ore information on this test, go to:http://educa tion. iPG [employer] /faq/FUU03z6(Th is link is being provided for informational/e ducat ional purposes only.) RAC (test code = Performing RAC) Organization Information: Site ID: IG Name: [facility] Address: [address] [place] [address] Director: Dr. Rajinder Grant [facility] C [id number] 22:17:00 Test Item Value Reference Interpretation Comments Range Hepatitis C Ab (test REACTIVE NON-REACTIVE A code = 59853-1) Signal/cutoff (test >11.00 See_Comment H Based o n this code = 16748-1) result, the sample will be testedf or [...] RAC) Organization Information: Site ID: RGA Name: [facility] Address: [address] [place] [address] Director: Rajinder Grant Lab Interpretation Abnormal (test code = 34597-7) [facility]2 combined Ab, [id number] 22:17:00 Test Item Value Reference Interpretation Comments Range HSV 1 IgM NEGATIVE (test code = 35333-8) HSV 2 IgM NEGATIVE REFERENCE RANG E: NEGATIVE HSV (test IgM is detectab le in serum code = [facility] >90[facility] 99863-3) primary HSV inf ection. However, HSV Ig [...] performancechar acteristics have been deter mined by [employer].It has not been cleared or appr luis by FDA. This assay hasb een validated pursuant to the CLIA regulations and isused for clinical purpos es. RAC (test Performing code = Organization RAC) Information: Site ID: EZ Name: Company[facility], Address: [address] [place] [address] Director: Crista Camacho MD,PhD,BARI [facility] HospitalHIV 1/2 antigen/antibody, fourth generation, with reflexes 2022-02-11 22:17:00 Test Item Value Reference Range Interpretation Comments HIV NON-REACTIVE NON-REACTIVE HIV-1 antigen a nd antigen/ant HIV-1/HIV-2 ant ibodies ibody 4th were notdetecte d. There gen (test is no laborator y evidence code = of HIVinfection . PLEASE 79528-3) NOTE: This info rmation has been disclo [...] ad ditional information ple ase refer tohttp://educat ion.Friendfer.[employer]/ faq/PTB995 (This link is b eing provided for informational/e ducational purposes only.) The performance of this assay has not been clinicallyvalid ated in patients less t lagunas 2 years old. RAC (test Performing code = RAC) Organization Information: Site ID: RGA Name: [facility] Address: [address] [place] [address] Director: Rajinder Grant [facility] HospitalHSV 1 and 2 specific Ab [id number] 22:17:00 Test Item Value Reference Interpretation Comments [...] ease refer to http://educatio n.Ques tDiagnostics.co m/faq/ LSU278 (This li nk is being provided for informational/e ducati onal purposes o nly.) RAC (test code = Performing RAC) Organization Information: Site ID: IG Name: [facility] Lab Address: [address] [place] [address] Director: Dr. Rajinder Grant Lab Interpretation Abnormal (test code = 45631-6) [facility] B surface [id number] 22:17:00 Test Item Value Reference Range Interpretation Comments Hepatitis B surface NON-REACTIVE NON-REACTIVE Ag (test code = 5196-1) RAC (test code = RAC) Performing Organization Information: Site ID: RGA Name: [facility] Address: [address] [place] [address] Director: Rajinder Parker [facility] with reflex to [id number] 22:17:00 Test Item Value Reference Range Interpretation Comments RPR (test code = NON-REACTIVE NON-REACTIVE 29152-5) RAC (test code = Performing Organization RAC) Information: Site ID: RGA Name: [facility] Address: [address] [place] [address] Director: Rajinder Grant [facility] C virus (HCV), quantitative [id number] 22:17:00 Test Item Value Reference Interpretation Comments Range HCV RNA, <15 NOT DETECTED NOT DETECTED quantitative PCR IU/mL (test code = 68919-0) HCV viral log <1.18 NOT DETECTED NOT DETECTED This bhupendra t was (test code = Log IU/mL performed using 02103-3) Real-Time Polym erase ChainReaction. Reportable Rang e: 15 IU/mL to 100,00 0,000 IU/mL(1.18 Log IU/mL to 8.00 Log IU/ mL). The analytical performance characteristics of thisassay have been determined by [facility]. Th e modifications h ave not been cleare d or approved bythe FDA. This assay has been validated pursu ant to the CLIA regulations and is used for clinic al purposes. For m ore information on this test, go to:http://educa tion. [employer] /faq/XXF49j0(Th is link is being provided for informational/e ducat ional purposes only.) RAC (test code = Performing RAC) Organization Information: Site ID: IG Name: [facility] Address: [address] [place] [address] Director: Dr. Rajinder Grant [facility]Hep[facility]it[facility] C [id number] 22:17:00 Test Item Value Reference Interpretation Comments Range Hepatitis C Ab (test REACTIVE NON-REACTIVE A code = 78020-5) Signal/cutoff (test >11.00 See_Comment H Based o n this code = 15131-6) result, the sample will be testedf or [...] RAC) Organization Information: Site ID: RGA Name: [facility]ell [facility] Lab Address: [address] [place] [address] Director: Rajinder Grant Lab Interpretation Abnormal (test code = 52591-9) [facility]HSV type 1/2 combined Ab, [id number] 22:17:00 Test Item Value Reference Interpretation Comments Range HSV 1 IgM NEGATIVE (test code = 69927-2) HSV 2 IgM NEGATIVE REFERENCE RANG E: NEGATIVE HSV (test IgM is detectab le in serum code = from >90% of wy tracey [address]7424-4) primary HSV inf ection. However, HSV Ig [...] performancechar acteristics have been deter mined by [employer].It has not been cleared or appr luis by FDA. This assay hasb een validated pursuant to the CLIA regulations and isused for clinical purpos es. RAC (test Performing code = Organization RAC) Information: Site ID: EZ Name: [facility]/[facility], Address: [address] [place] [address] Director: Crista Camacho MD,PhD,BARI [facility] antigen/antibody, fourth generation, with reflexes 2022-02-11 22:17:00 Test Item Value Reference Range Interpretation Comments HIV NON-REACTIVE NON-REACTIVE HIV-1 antigen a nd antigen/ant HIV-1/HIV-2 ant ibodies ibody 4th were notdetecte d. There gen (test is no laborator y evidence code = of HIVinfection . PLEASE 97208-1) NOTE: This info rmation has been disclo [...] ad ditional information ple ase refer tohttp://educat ion.Friendfer.[employer]/ faq/YFH516 (This link is b eing provided for informational/e ducational purposes only.) The performance of this assay has not been clinicallyvalid ated in patients less t lagunas 2 years old. RAC (test Performing code = RAC) Organization Information: Site ID: RGA Name: [facility] Address: [address] [place] [address] Director: Rajinder Grant [facility] HospitalHSV 1 and 2 specific Ab [id number] 22:17:00 Test Item Value Reference Interpretation Comments [...] pediatric popul ations, immunocompromis ed patients,or omar lily screening. For additional information, pl ease refer to http://educatio n.Company.com.com /faq/FA Q118 (This link is being provided for informational/e ducatio nal purposes on ly.) RAC (test code = Performing RAC) Organization Information: Site ID: IG Name: [facility] Address: [address] [place] [address] Director: Dr. Rajinder Grant Lab Interpretation Abnormal (test code = 29476-6) [facility]Hep[facility] surface [id number] 22:17:00 Test Item Value Reference Range Interpretation Comments Hepatitis B surface NON-REACTIVE NON-REACTIVE Ag (test code = 5196-1) RAC (test code = RAC) Performing Organization Information: Site ID: RGA Name: [facility] Address: [address] [place] [address] Director: Rajinder Grant [facility] HospitalRPR with reflex to [id number] 22:17:00 Test Item Value Reference Range Interpretation Comments RPR (test code = NON-REACTIVE NON-REACTIVE 94306-8) RAC (test code = Performing Organization RAC) Information: Site ID: BEBA Name: [facility] Address: [address] [place] [address] Director: Rajinder Parker [facility] C virus (HCV), quantitative [id number] 22:17:00 Test Item Value Reference Interpretation Comments Range HCV RNA, <15 NOT DETECTED NOT DETECTED quantitative PCR IU/mL (test code = 94795-0) HCV viral log <1.18 NOT DETECTED NOT DETECTED This bhupendra t was (test code = Log IU/mL performed using 94730-6) Real-Time Polym erase ChainReaction. Reportable Rang e: 15 IU/mL to 100,00 0,000 IU/mL(1.18 Log IU/mL to 8.00 Log IU/ mL). The analytical performance characteristics of thisassay have been determined by [facility]. Th e modifications h ave not been cleare d or approved bythe FDA. This assay has been validated pursu ant to the CLIA regulations and is used for clinic al purposes. For m ore information on this test, go to:http://educa Credit Coachon. [employer] /faq/VLD07k4( is link is being provided for informational/e ducat ional purposes only.) RAC (test code = Performing RAC) Organization Information: Site ID: IG Name: [facility] Address: [address] [place] [address] Director: Dr. Rajinder Grant [facility] C [id number] 22:17:00 Test Item Value Reference Interpretation Comments Range Hepatitis C Ab (test REACTIVE NON-REACTIVE A code = 42235-0) Signal/cutoff (test >11.00 <=1.00 H Based o n this code = 69666-1) result, the sample will be testedf or HCV RNA by a Nucleic Acid Amplification T est (NAAT)to determ ine if the patient has a current activeinfection . RAC (test code = Performing RAC) Organization Information: Site ID: RGA Name: [facility] Lab Address: [address] [place] [address] Director: Rajinder Grant Lab Interpretation Abnormal (test code = 20765-3) [facility] Ab, [id number] 22:17:00 Test Item Value Reference Interpretation Comments Range HSV 1 IgM NEGATIVE (test code = 13371-7) HSV 2 IgM NEGATIVE REFERENCE RANG E: NEGATIVE HSV (test IgM is detectab le in serum code = from >90% of pa timith [address]-7) primary HSV inf ection. However, HSV Ig [...] performancechar acteristics have been deter mined by [employer].It has not been cleared or appr luis by FDA. This assay hasb een validated pursuant to the CLIA regulations and isused for clinical purpos es. RAC (test Performing code = Organization RAC) Information: Site ID: EZ Name: [employer]/[facility], Address: [address] [place] [address] Director: Crista Camacho MD,PhD,BARI [facility] CenterHIV 1/2 antigen/antibody, fourth generation, with reflexes 2022-02-11 22:17:00 Test Item Value Reference Range Interpretation Comments HIV NON-REACTIVE NON-REACTIVE HIV-1 antigen a nd antigen/ant HIV-1/HIV-2 ant ibodies ibody 4th were notdetecte d. There gen (test is no laborator y evidence code = of HIVinfection . PLEASE 10206-6) NOTE: This info rmation has been disclo [...] ad ditional information ple ase refer tohttp://educat ion.Taptera/ faq/IOW093 (This link is b eing provided for informational/e ducational purposes only.) The performance of this assay has not been clinicallyvalid ated in patients less t lagunas 2 years old. RAC (test Performing code = RAC) Organization Information: Site ID: RGA Name: [facility] Address: [address] [place] [address] Director: Rajinder Grant [facility] HospitalHSV 1 and 2 specific Ab [id number] 22:17:00 Test Item Value Reference Interpretation Comments Range HSV 1 IgG (test <0.90 index code = 5206-8) HSV 2 IgG (test 17.90 index H Index Inter pretation code = [...] ease refer to http://educatio n.Ques tDiagnostics.co m/faq/ XUQ332 (This li nk is being provided for informational/e ducati onal purposes o nly.) RAC (test code = Performing RAC) Organization Information: Site ID: IG Name: [facility] Lab Address: [address] [place] [address] Director: Dr. Rajinder Grant Lab Interpretation Abnormal (test code = 12308-3) [facility] pathology [id number] 15:02:28 Test Item Value Reference Range Interpretation Comments Case number (test code = [id number]) Surgical pathology See link below for report (test code = PDF Lab Report 2255) Result status (test code This is Final Report = [id number]) for [id number] [facility] pathology [id number] 15:02:28 Test Item Value Reference Range Interpretation Comments Case number (test code = [id number]) Surgical pathology See link below for report (test code = PDF Lab Report 2255) Result status (test code This is Final Report = [id number]) for [address] pathology [id number] 15:02:28 Test Item Value Reference Range Interpretation Comments Case number (test code = [id number]) Surgical pathology See link below for report (test code = PDF Lab Report 2255) Result status (test code This is Final Report = [id number]) for [address] pathology [id number] 15:02:28 Test Item Value Reference Range Interpretation Comments Case number (test code = [id number]) Surgical pathology See link below for report (test code = PDF Lab Report 2255) Result status (test code This is Final Report = [id number]) for [address] pathology [id number] 15:02:28 Test Item Value Reference Range Interpretation Comments Case number (test code = [id number]) Surgical pathology See link below for report (test code = PDF Lab Report 2255) Result status (test code This is Final Report = [id number]) for [address] pathology [id number] 15:02:28 Test Item Value Reference Range Interpretation Comments Case number (test code = [id number]) Surgical pathology See link below for report (test code = PDF Lab Report 2255) Result status (test code This is Final Report = [id number]) for [address] pathology [id number] 15:02:28 Test Item Value Reference Range Interpretation Comments Case number (test code = [id number]) Surgical pathology See link below for report (test code = PDF Lab Report 2255) Result status (test code This is Final Report = [id number]) for [id number] [facility]COVID[facility] qualitative [id number] 22:09:28 Test Item Value Reference Interpretation Comments Range Interpretation (test Negative results do not code = 3795204) preclude COVID-19 infection and should not be used asthe sole basis for treatment or other patient management decisions. Negativeresults must be combined with clinical observations, patient history, andepidemiological information. COVID-19 qualitative Not-Detected Not-Detected RT-PCR result (test code = 98424-7) COVID-19 qualitative See link below for PDF Case Number: RT-PCR (test code = Lab Report [id number]) [facility] [id number] 22:09:28 Test Item Value Reference Interpretation Comments Range Interpretation (test Negative results do not code = 4563323) preclude COVID-19 infection and should not be used asthe sole basis for treatment or other patient management decisions. Negativeresults must be combined with clinical observations, patient history, andepidemiological information. COVID-19 qualitative Not-Detected Not-Detected RT-PCR result (test code = 96036-8) COVID-19 qualitative See link below for PDF Case Number: RT-PCR (test code = Lab Report [id number]) [facility] qualitative [id number] 22:09:28 Test Item Value Reference Interpretation Comments Range Interpretation (test Negative results do not code = 1890992) preclude COVID-19 infection and should not be used asthe sole basis for treatment or other patient management decisions. Negativeresults must be combined with clinical observations, patient history, andepidemiological information. COVID-19 qualitative Not-Detected Not-Detected RT-PCR result (test code = 84721-3) COVID-19 qualitative See link below for PDF Case Number: RT-PCR (test code = Lab Report [id number]) [facility] qualitative [id number] 22:09:28 Test Item Value Reference Interpretation Comments Range Interpretation (test Negative results do not code = 8503968) preclude COVID-19 infection and should not be used asthe sole basis for treatment or other patient management decisions. Negativeresults must be combined with clinical observations, patient history, andepidemiological information. COVID-19 qualitative Not-Detected Not-Detected RT-PCR result (test code = 89859-5) COVID-19 qualitative See link below for PDF Case Number: RT-PCR (test code = Lab Report [id number]) [facility] qualitative [id number] 22:09:28 Test Item Value Reference Interpretation Comments Range Interpretation (test Negative results do not code = 8130380) preclude COVID-19 infection and should not be used asthe sole basis for treatment or other patient management decisions. Negativeresults must be combined with clinical observations, patient history, andepidemiological information. COVID-19 qualitative Not-Detected Not-Detected RT-PCR result (test code = 20942-3) COVID-19 qualitative See link below for PDF Case Number: RT-PCR (test code = Lab Report [id number]) [facility] qualitative [id number] 22:09:28 Test Item Value Reference Interpretation Comments Range Interpretation (test Negative results do not code = 8015647) preclude COVID-19 infection and should not be used asthe sole basis for treatment or other patient management decisions. Negativeresults must be combined with clinical observations, patient history, andepidemiological information. COVID-19 qualitative Not-Detected Not-Detected RT-PCR result (test code = 69570-8) COVID-19 qualitative See link below for PDF Case Number: RT-PCR (test code = Lab Report [id number]) [facility] qualitative [id number] 22:09:28 Test Item Value Reference Interpretation Comments Range Interpretation (test Negative results do not code = 4768195) preclude COVID-19 infection and should not be used asthe sole basis for treatment or other patient management decisions. Negativeresults must be combined with clinical observations, patient history, andepidemiological information. COVID-19 qualitative Not-Detected Not-Detected RT-PCR result (test code = 37493-8) COVID-19 qualitative See link below for PDF Case Number: RT-PCR (test code = Lab Report [id number]) [facility] RNA [Presence] in Respiratory specimen by LATESHA with probe [id number] 17:09:28 Test Item Value Reference Range Interpretation Comments SARS-CoV-2 (COVID-19) RNA Not detected [Presence] in Respiratory specimen by LATESHA with probe detection (test code = 98459-9) Whether patient is employed in a Unknown healthcare setting (test code = 76603-5) Whether the patient has symptoms Unknown related to condition of interest (test code = 18304-8) Whether the patient was Unknown hospitalized for condition of interest (test code = 41758-2) Whether the patient was admitted Unknown to intensive care unit (ICU) for condition of interest (test code = 14973-7) Whether patient resides in a Unknown congregate care setting (test code = 38002-1) status (test code = Unknown 22281-3) Date and time of symptom onset Unknown (test code = 29516-3) [facility]ENTERTHINPREP TIS AND HPV mRNA [id number] 20:30:00 Test Item Value Reference Interpretation Comments Range Clinical information None gi niurka (test code = 20379-6) Date of last NONE GIVEN menstrual period (test code = 8665-2) Prev. pap: (test code NONE G IVEN = 22226-8) Prev. bx: (test code NONE GI NIURKA = 82642-3) Source (test code = None giv en ) Statement of adequacy Satisf actory for (test code = 24510-3) evalua tion.Endocervi cony/transformat ion zone componentpresen t.Age and/or menstrua l status not prov ided Interpretation/result Negati ve for : (test code = intraepitheli al 69185-3) lesion or malignancy. Comment (test code = This Pa p test has ) been evaluated with Thermo[employer]eram[employer] New[employer]ive technology. [employer] NATO, CT ( CP)CT (test code = 76019-8) screen ing location: [place] [address] [address], [facility] [address] Comment (test code = EXPLANA TORY NOTE: 4858917) The Pap is a screening test for [...] Detected Not Detected Methodo logy: code = 60523-1) Transcriptio n-Mediat ed Amplificatio n This assay [...] For additional information, pl ease refer tohttp://educat ion.[employer]/ faq/HMT856a6(Th is link if provide d for information/edu catio nal purposes on ly.) JACEK (test code = RAC) Performing Organization Information: Site ID: TIM Name: Company[facility]comJose [facility]re Lab Address: [address] [place] [address] Director: Dr. Rajinder Grant Site ID: RGA Name: Company[facility]Cam [facility]k Lab Address: [address] [place] [address] Director: Rajinder Grant [facility] HospitalTHINPREP TIS AND HPV mRNA [id number] 20:30:00 Test Item Value Reference Interpretation Comments Range Clinical information None gi niurka (test code = 51273-5) Date of last NONE GIVEN menstrual period (test code = 8665-2) Prev. pap: (test code NONE G IVEN = 68964-8) Prev. bx: (test code NONE GI NIURKA = 22346-5) Source (test code = None giv en ) Statement of adequacy Satisf actory for (test code = 36518-6) evalua tion.Endocervi cony/transformat ion zone componentpresen t.Age and/or menstrua l status not prov ided Interpretation/result Negati ve for : (test code = intraepitheli al 27136-1) lesion or malignancy. Comment (test code = This Pa p test has ) been evaluated with [employer] d technology. Rat Breeder NATO, CT ( CP)CT (test code = 08871-2) screen ing location: [address], [place] [address] 2 Comment (test code = EXPLANA TORY NOTE: 1163391) The Pap is a screening test for [...] Detected Not Detected Methodo logy: code = 87309-2) Transcriptio n-Mediat ed Amplificatio n This assay [...] For additional information, pl ease refer tohttp://educat ion.[employer]/ faq/LXG652u7(Th is link if provide d for information/edu catio nal purposes on ly.) JACEK (test code = RAC) Performing Organization Information: Site ID: IG Name: [facility] Address: [address] [place] [address] Director: Dr. Rajinder Grant Site ID: RGA Name: [facility] Address: [address] [place] [address] Director: Rajinder Grant [facility] AND HPV mRNA E6/[id number] 20:30:00 Test Item Value Reference Interpretation Comments Range Clinical information None gi niurka (test code = 83246-8) Date of last NONE GIVEN menstrual period (test code = 8665-2) Prev. pap: (test code NONE G IVEN = 53758-2) Prev. bx: (test code NONE GI NIURKA = 41831-2) Source (test code = None giv en 96418-8) Statement of adequacy Satisf actory for (test code = 46420-2) evalua tion.Endocervi cony/transformat ion zone componentpresen t.Age and/or menstrua l status not prov ided Interpretation/result Negati ve for : (test code = intraepitheli al 42747-4) lesion or malignancy. Comment (test code = This Pa p test has ) been evaluated with [employer] technology. Rat Breeder NATO CT ( CP)CT (test code = 74776-1) screen ing location: [place] [address] [address] [facility], [place] [address] 2 Comment (test code = EXPLANA TORY NOTE: 3996971) The Pap is a screening test for [...] Detected Not Detected Methodo logy: code = 20284-7) Transcriptio n-Mediat ed Amplificatio n This assay [...] For additional information, pl ease refer tohttp://educat ion.[employer]/ faq/JVD914t1(Th is link if provide d for information/edu catio nal purposes on ly.) RAC (test code = RAC) Performing Organization Information: Site ID: IG Name: [facility] Address: [address] [place] [address] Director: Dr. Rajinder Grant Site ID: RGA Name: [facility] Address: [address] [place] [address] Director: Rajinder Grant [facility] AND HPV mRNA E6/[id number] 20:30:00 Test Item Value Reference Interpretation Comments Range Clinical information None gi niurka (test code = 43654-4) Date of last NONE GIVEN menstrual period (test code = 8665-2) Prev. pap: (test code NONE G IVEN = 46819-0) Prev. bx: (test code NONE GI NIURKA = 08198-2) Source (test code = [place] 46623-5) Statement of adequacy Satisf actory for (test code = 51404-6) evalua tion.Endocervi cony/transformat ion zone componentpresen t.Age and/or menstrua l status not prov ided Interpretation/result Negati ve for : (test code = intraepitheli al 10308-3) lesion or malignancy. Comment (test code = This Pa p test has ) been evaluated with computerassiste d technology. Rat Breeder NATO CT ( CP)CT (test code = 82815-1) screen ing location: [address], [place] [address] 2 Comment (test code = EXPLANA TORY NOTE: 7657074) The Pap is a screening test for [...] Detected Not Detected Methodo logy: code = 36930-8) Transcriptio n-Mediat ed Amplificatio n This assay [...] For additional information, pl ease refer tohttp://educat ion.[employer]/ faq/IQD339q9(Th is link if provide d for information/edu catio nal purposes on ly.) JACEK (test code = RAC) Performing Organization Information: Site ID: IG Name: [facility] Address: [address] [place] [address] Director: Dr. Rajinder Grant Site ID: RGA Name: [facility] Address: [address] [place] [address] Director: Rajinder Grant [facility]IN[facility] AND HPV mRNA [id number]/[id number] 20:30:00 Test Item Value Reference Interpretation Comments Range Clinical information None gi niurka (test code = 71089-7) Date of last NONE GIVEN menstrual period (test code = 8665-2) Prev. pap: (test code NONE G IVEN = 32378-6) Prev. bx: (test code NONE GI NIURKA = 26790-1) Source (test code = [place] 74324-1) Statement of adequacy Satisf actory for (test code = 58949-3) evalua tion.Endocervi cony/transformat ion zone componentpresen t.Age and/or menstrua l status not prov ided Interpretation/result Negati ve for : (test code = intraepitheli al 86925-0) lesion or malignancy. Comment (test code = This Pa p test has ) been evaluated with computerassiste d technology. Rat Breeder NATO CT ( CP)CT (test code = 70266-4) screen ing location: [facility] [address] [place] [address], [place] [address] Comment (test code = EXPLANA TORY NOTE: 6952209) The Pap is a screening test for [...] Detected Not Detected Methodo logy: code = 70895-8) Transcriptio n-Mediat ed Amplificatio n This assay [...] For additional information, pl ease refer tohttp://educat ion.[employer]/ faq/XTH053y4(Th is link if provide d for information/edu catio nal purposes on ly.) JACEK (test code = RAC) Performing Organization Information: Site ID: IG Name: [facility] Address: [address] [place] [address] Director: Dr. Rajinder Grant Site ID: RGA Name: [facility] Address: [address] [place] [address] Director: Rajinder Grant [facility]THINPREP TIS AND HPV mRNA E6/[id number] 20:30:00 Test Item Value Reference Interpretation Comments Range Clinical information None gi niurka (test code = 12018-5) Date of last NONE GIVEN menstrual period (test code = 8665-2) Prev. pap: (test code NONE G IVEN = 80511-0) Prev. bx: (test code NONE GI NIURKA = 80456-4) Source (test code = None giv en ) Statement of adequacy Satisf actory for (test code = 24651-1) evalua tion.Endocervi cony/transformat ion zone componentpresen t.Age and/or menstrua l status not prov ided Interpretation/result Negati ve for : (test code = intraepitheli al 66680-8) lesion or malignancy. Comment (test code = This Pa p test has ) been evaluated with [employer] technology. Rat Breeder SYL DUTTON ( CP)CT (test code = 11464-5) screen ing location: [address], [place] [address] 2 Comment (test code = EXPLANA TORY NOTE: 6825636) The Pap is a screening test for [...] Detected Not Detected Methodo logy: code = 54006-6) Transcriptio n-Mediat ed Amplificatio n This assay [...] For additional information, pl ease refer tohttp://educat ion.[employer] .[employer]/ faq/DPC800e0(Th is link if provide d for information/edu catio nal purposes on ly.) RAC (test code = RAC) Performing Organization Information: Site ID: IG Name: [facility] Address: [address] [place] [address] Director: Dr. Rajinder Grant Site ID: RGA Name: [facility] Address: [address] [place] [address] Director: Rajinder Grant [facility]THIN[facility] TIS AND HPV mRNA E6/[id number] 20:30:00 Test Item Value Reference Interpretation Comments Range Clinical information None gi niurka (test code = 88207-9) Date of last NONE GIVEN menstrual period (test code = 8665-2) Prev. pap: (test code NONE G IVEN = 91630-0) Prev. bx: (test code NONE GI NIURKA = 10433-6) Source (test code = None giv en 06535-3) Statement of adequacy Satisf actory for (test code = 79153-2) evalua tion.Endocervi cony/transformat ion zone componentpresen t.Age and/or menstrua l status not prov ided Interpretation/result Negati ve for : (test code = intraepitheli al 84353-9) lesion or malignancy. Comment (test code = This Pa p test has ) been evaluated with [employer] technology. Rat Breeder NATO, CT ( CP)CT (test code = 80727-1) screen ing location: [place] [address] [address] [facility], [facility] [address] 2 Comment (test code = EXPLANA TORY NOTE: 9154691) The Pap is a screening test for cervical cancer . It is not a diagno stic test and is sub ject to false negati ve and false posit cole results. It is most reliable when a satisfactory sa mple, regularly obtai kady, is submitted relevant clinic al findings and history, and wh en the Pap result is evaluated along with historic and cu rrent clinical information. HPV mRNA e6/e7 (test Not Detected Not Detected Methodo logy: code = 89445-5) Transcriptio n-Mediat ed Amplificatio n This assay [...] For additional information, pl ease refer tohttp://educat ion.[employer]/ faq/ZIR193l8(Th is link if provide d for information/edu catio nal purposes on ly.) RAC (test code = RAC) Performing Organization Information: Site ID: IG Name: [facility] Address: [address] [place] [address] Director: Dr. Rajinder Grant Site ID: RGA Name: [facility] Address: [address] [place] [address] Director: Rajinder Grant [address]2022-09-01 18:14:37 Test Item Value Reference Range Interpretation Comments Ventricular rate (test code = 253) Atrial rate (test code = 255) DC interval (test code = 266) QRSD interval [...] of 07-NOV-2021 12:57,-No significant change was found- [address]2022-09-01 18:14:37 Test Item Value Reference Range Interpretation Comments Ventricular rate (test code = 253) Atrial rate (test code = 255) DC interval (test code = 266) QRSD interval [...] of 07-NOV-2021 12:57,-No significant change was found- [address]2022-09-01 18:14:37 Test Item Value Reference Range Interpretation Comments Ventricular rate (test code = 253) Atrial rate (test code = 255) DC interval (test code = 266) QRSD interval [...] of 07-NOV-2021 12:57,-No significant change was found- [facility] RNA [Presence] in Respiratory specimen by LATESHA with probe [id number] 21:57:49 Test Item Value Reference Range Interpretation Comments SARS-CoV-2 (COVID-19) RNA [Presence] Detected in Respiratory specimen by LATESHA with probe detection (test code = 62062-3) Whether patient is employed in a Unknown healthcare setting (test code = 16882-6) Whether the patient has symptoms Unknown related to condition of interest (test code = 39120-7) Whether the patient was hospitalized Unknown for condition of interest (test code = 01099-0) Whether the patient was admitted to Unknown intensive care unit (ICU) for condition of interest (test code = 87336-1) Whether patient resides in a Unknown congregate care setting (test code = 64674-0) status (test code = Unknown 80445-2) Date and time of symptom onset (test Unknown code = 16531-5) [facility] function [id number] 18:40:00 Test Item Value Reference Range Interpretation Comments Protein (test code 6.6 g/dL 6.1-8.1 = 2885-2) Albumin, S (test 4.1 g/dL 3.6-5.1 code = 1751-7) Globulin, total See_Comment [Automated (test code = message] The 05213-3) system which generated this result transmitted reference range : 1.9 - 3.7 g/dL (calc). The reference range was not used to interpret this result as normal/abnormal . Albumin/globulin See_Comment [Automated ratio (test code = message] The 3236-0) system which generated this result transmitted reference [...] 1920-8) ALT (test code = 14 U/L 10-082-6) WILDA (test code = FASTING: UNKNOWN WILDA) RAC (test code = Performing RAC) Organization Information: Site ID: RGA [facility]: [facility] Address: [address] [place] [address] Director: Rajinder Girma MedinaRudyPremier Health [facility] HospitalHepatic function [id number] 18:40:00 Test Item Value Reference Range Interpretation [...] RAC) Organization Information: Site ID: RGA Name: [facility] Address: [address] [place] [address] Director: [facility] [id number] 18:40:00 Test Item Value Reference Range Interpretation [...] RAC) Organization Information: Site ID: RGA Name: [facility] Address: [address] [place] [address] Director: [facility] HospitalHep[facility] function [id number] 18:40:00 Test Item Value Reference Range Interpretation Comments Protein (test code 6.6 g/dL 6.1-8.1 = 2885-2) Albumin, S (test 4.1 g/dL 3.6-5.1 code = 7) Globulin, total See_Comment [Automated (test code = [...] 1919-11) ALT (test code = 14 U/L 10-08) WILDA (test code = FASTING: UNKNOWN IWLDA) RAC (test code = Performing RAC) Organization Information: Site ID: BEBA Name: [facility] Address: [address] [place] [address] Director: Seco Girma [facility] HospitalHep[facility] function [id number] 18:40:00 Test Item Value Reference Range Interpretation [...] RAC) Organization Information: Site ID: BEBA Name: [facility] Address: [address] [place] [address] Director: [facility] HospitalHep[facility] function [id number] 18:40:00 Test Item Value Reference Range Interpretation [...] RAC) Organization Information: Site ID: RGA Name: [facility] Address: [address] [place] [address] Director: Rajinder KiddMethodist Midloth[facility] CenterHepatic function [id number] 18:40:00 Test Item Value Reference Range Interpretation Comments Protein (test code 6.6 g/dL 6.1-8.1 = 2885-2) Albumin, S (test 4.1 g/dL 3.6-5.1 code = 175-7) Globulin, total 2.5 See_Comment [Automated (test code = message] The ) system which generated this result transmitted reference range : 1.9 - 3.7 g/dL (calc). The reference range was not used to interpret this result as normal/abnormal . Albumin/globulin 1.6 See_Comment [Automated ratio (test code = message] [...] interpret this result as normal/abnormal . Bilirubin, 0.4 See_Comment [Automated indirect (test message] The code [...] RAC) Organization Information: Site ID: RGA Name: [facility] Address: [address] [place] [address] Director: Rajinder MartínezARS-CoV-2 (COVID-19) RNA [Presence] in Respiratory specimen by LATESHA with probe [id number] 20:46:09 Test Item Value Reference Range Interpretation Comments SARS-CoV-2 (COVID-19) RNA Not detected [Presence] in Respiratory specimen by LATESHA with probe detection (test code = 93155-7) Whether patient is employed in a Unknown healthcare setting (test code = 50516-9) Whether the patient has symptoms Unknown related to condition of interest (test code = 85768-0) Whether the patient was Unknown hospitalized for condition of interest (test code = 30132-5) Whether the patient was admitted Unknown to intensive care unit (ICU) for condition of interest (test code = 75087-8) Whether patient resides in a Unknown congregate care setting (test code = 49563-9) status (test code = Unknown 05635-4) Date and time of symptom onset Unknown (test code = 31116-9) [facility] CenterThyroid stimulating [id number] 05:23:00 Test Item Value Reference Range Interpretation Comments TSH (test code mIU/L Reference R paris = 3016-3) > or = 20 Years 0.40-4.50 Range s First trimester 0.26-2.66 Secon d trimester 0.55-2.73 Thir d trimester 0.43-2.91 RAC (test code Performing = RAC) Organization Information: Site ID: [facility] Name: [facility] Address: [address] [place] [address] Director: Rajinder Grant [facility]2022-06-11 05:23:00 Test Item Value Reference Range Interpretation Comments TSH (test code mIU/L Reference Ra nge > = 3016-3) or = 20 Years 0.40-4.50 Range s First trimester 0.26-2.66 Secon d trimester 0.55-2.73 Third trimester 0.43-2.91 RAC (test code Performing = RAC) Organization Information: Site ID: A Name: [facility] Address: [address] [place] [address] Director: Rajinder Grant [facility] [id number] 05:23:00 Test Item Value Reference Range Interpretation Comments TSH (test code mIU/L Reference Ra nge = 3016-3) > or = 20 Years 0.40-4.50 Range s First trimester 0.26-2.66 Secon d trimester 0.55-2.73 Third trimester 0.43-2.91 RAC (test code Performing = RAC) Organization Information: Site ID: A Name: [facility] Address: [address] [place] [address] Director: Rajinder Grant [facility] [id number] 05:23:00 Test Item Value Reference Range Interpretation Comments TSH (test code mIU/L Reference Ra nge = 3016-3) > or = 20 Years 0.40-4.50 Range s First trimester 0.26-2.66 Secon d trimester 0.55-2.73 Third trimester 0.43-2.91 RAC (test code Performing = RAC) Organization Information: Site ID: RGA Name: [facility] Address: [address] [place] [address] Director: Rajinder Grant [facility] [id number] 05:23:00 Test Item Value Reference Range Interpretation Comments TSH (test code mIU/L Reference Ra nge > = 3016-3) or = 20 Years 0.40-4.50 Range s First trimester 0.26-2.66 Secon d trimester 0.55-2.73 Third trimester 0.43-2.91 RAC (test code Performing = RAC) Organization Information: Site ID: RGA Name: [facility] Address: [address] [place] [address] Director: Rajinder Grant [facility] [id number] 05:23:00 Test Item Value Reference Range Interpretation Comments TSH (test code mIU/L Reference Ra nge > = 3016-3) or = 20 Years 0.40-4.50 Range s First trimester 0.26-2.66 Secon d trimester 0.55-2.73 Third trimester 0.43-2.91 RAC (test code Performing = RAC) Organization Information: Site ID: RGA Name: [facility] Address: [address] [place] [address] Director: Rajinder Grant [facility] Hospitalroid stimulating [id number] 05:23:00 Test Item Value Reference Range Interpretation Comments TSH (test code 1.97 mIU/L Reference Ra nge > = 3016-3) or = 20 Years 0.40-4.50 Range s First trimester 0.26-2.66 Secon d trimester 0.55-2.73 Third trimester 0.43-2.91 RAC (test code Performing = RAC) Organization Information: Site ID: RGA Name: [facility] Address: [address] [place] [address] Director: Rajinder Brewer RFLX MICR CULT IF [id number] 18:48:00 Test Item Value Reference Range Interpretation [...] LACT) 0.7 mmol/L 0.7-2.0 N LIVER FUNCTION [id number] 15:14:00 Test Item Value Reference Range Interpretation [...] U/L 38-126 N (test code = ALKP) [id number] 15:14:00 Test Item Value Reference Range Interpretation [...] not suffi cient fordiagnosis of myocardial infarction. Zachary ponin results obtaine d by different assay s may vary.Evaluation of the extent of myoca rdial damage based onincreas e of troponin would be valid only if similar methodology is used.~~~~~~~~~~ ~~~~~~~~~~~~ ~~~~~~~~~~~~~~~ ~~~~~~~~~~~~ ~~~~~~~~~~ A PO SITIVE BIAS MAY OCCUR FOR P ATIENTS TAKING BIOTIN SUPPLEMENTS~~~~ ~~~~~~~~~~~~ ~~~~~~~~~~~~~~~ ~~~~~~~~~~~~ ~~~~~~~~~~~~~~~ ~ BASIC METABOLIC [id number] 15:14:00 Test Item Value Reference Range Interpretation [...] = HEMINDEX) - CT ABD PELVIS W/O [id number] 14:53:00 [facility] 1970 Sex: F FAX: Debo Gutierrez [place]: St: REG Name: HERSON JACKSON [facility] : 1970 Age/S: 51/F [address] Unit: [id number] Loc: [place] [address] Phys: Debo Gutierrez Acct: [id number] Dis Date:Status: REG ER PHONE #: [phone] Exam Date: 08/08/2021 1435 FAX #: [phone] Reason: flank pain EXAMS: CPT CODE: [id number] CT ABD PELVIS W/O CONT 12187 EXAM: CT abdomen and pelvis without contrast [...] with PAGE 1 Signed Report (CONTINUED) FAX: Deob Gutierrez [place]: St: REG Name: HERSON JACKSON [facility] : 1970 Age/S: 51/F [address] Unit: [id number] Loc: [place] [address] Phys: Debo Gutierrez Acct: [id number] Dis Date: Status: REG ER PHONE #: [phone] Exam Date: 08/08/2021 1435 FAX #: [phone] Reason: flank pain EXAMS: CPT CODE: [id number] CT ABD PELVIS W/O CONT 88957 (Continued) nephrolithiasis . Evaluation of the bladder is limited, but no obvious bladder abnormality is present.Organs of Reproduction: Not well assessed due to the lack of IV contrast, though no gross abnormalities are identified. Although, there is evidence of mild fatty stranding surrounding the adnexa and uterus suggest presence of pelvic inflammatory disease. Gastrointestinal: No evidence of bowel obstruction or perienteric inflammation. The appendix is normal. Vascular: The vessels are not well assesseddue to the lack of IV contrast, though no gross abnormality is identified. Lymph nodes: No enlarged lymph nodes by CT size criteria. Bones/Soft Tissues: No concerning bony lesion identified. No ventralhernias. Peritoneum/Other: No extraluminal air. No extraluminal fluid. IMPRESSION: 1. Left nephrolithiasis. No hydronephrosis. No obstructive uropathy. 2. No free fluid, or free air. 3. Findings suggest pelvic inflammatory disease. RECOMMENDATIONS: None. Internal Coding only:B3 at 1453 Reported and signed by: Sandro Molina MD PAGE 2 Signed Report (CONTINUED) FAX: Debo Gutierrez [place]: St: REG Name: HERSON JACKSON [facility] : 1970 Age/S: 51/F [address] Unit: [id number] Loc: [place] [address] Phys: Debo Gutierrez Acct: [id number] Dis Date: Status: REG ER PHONE #: [phone] Exam Date: FAX #: [phone] Reason: flank pain EXAMS: CPT CODE: [id number] CT ABD PELVIS W/O CONT 06322(Continued) CC: Debo Gutierrez Technologist: Debo Ortiz; SCOTT BENAVIDES Trnscrd Dt/Tm: 08/08/2021 (0183) Aguilar Orig Print D/T: S: 08/08/2021 (7556 PAGE 3 Signed ReportCBC W/AUTO [id number] 14:21:00 Test Item Value Reference Range Interpretation [...] 3/uL 0.0-0.1 N - XR CHEST 1 [id number] 13:50:00 [facility] : 1970 Sex: F FAX: Debo Gutierrez [place]: St: PRE Name: HERSON JACKSON [facility] [place] : 1970 Age/S: 51/F [address] Unit #: [id number] Loc: [place] [address] Phys: Debo Gutierrez Acct: [id number] Dis Date: Status: PRE ER PHONE #: [phone] Exam Date: 08/08/2021 1340 FAX #: [phone] Reason: CODE SEPSIS EXAMS: CPT CODE: [id number] XR CHEST 1 V 48413 CHEST 1 VIEW: INDICATION: CODE SEPSIS COMPARISON: There are no prior studies for comparison. Location: T 18 A single portable AP view of the chest demonstrates a normal cardiomediastinal silhouette. The lung flores are clear. No apparent pleural effusion nor pneumothorax. Changes of cervical spine surgery are noted. IMPRESSION: 1. No acute cardiopulmonary findings seen. at 1350 Reportedand signed by: Camden Saravia MD CC: Debo Gutierrez Technologist: NAY GILLIS; STUDENT 2ND YEARTrnscrd Date/Time/By: 08/08/2021 (1960) : By: [email or web address] PAGE 1 Signed Report FAX: Debo Gutierrez [place]: [facility]: PRE -- Name: HERSON JACKSON : 1970 Age/S: 51/F [address] Unit #: [id number] Loc: [place] [address] Phys: Debo Gutierrez APRNNP Acct: [id number] Dis Date: Status: PRE ER PHONE #: [phone] Exam Date: 08/08/2021 1340 FAX #: [phone] Reason: CODE SEPSIS EXAMS: CPT CODE: [id number] XR CHEST 1 V 63557 (Continued) Orig Print D/T: S: 08/08/2021 (2114) PAGE 2 Signed ReportTHINPREP TIS PAP AND HPV mRNA E6/E7 REFLEX HPV 16,18/45 2021-06-19 18:43:00 Test Item Value Reference Interpretation Comments Range Clinical information None gi niurka (test code = 56535-6) Date of last NONE GIVEN menstrual period (test code = 8665-2) Prev. pap: (test code NONE G IVEN = 67253-0) Prev. bx: (test code NONE GI NIURKA = 79888-5) Source (test code = None giv en 17913-1) Statement of adequacy Satisf actory for (test code = 27003-2) evalua tion.Endocervi cony/transformat ion zone componentpresen t.Age and/or menstrua l status not prov ided Interpretation/result Negati ve for : (test code = intraepitheli al 13772-3) lesion or malignancy. Comment (test code = This Pa p test has ) been evaluated with computerassiste d technology. Review PMT, CT(ASCP)CT video journalist screening l ocation: (test code = 78143-4) [facility] [place] [address], [facility] [address] 2 Comment (test code = EXPLANA TORY NOTE: 5423859) The Pap is a screening test for [...] Detected Not Detected Methodo logy: code = 32156-3) Transcriptio n-Mediat ed Amplificatio n This assay dete cts E6/E7 viral messenger RNA ( mRNA) from 14high-ris k HPV types (16,18,31,33,35 ,39,4 5,51,52,56,58,5 9,66, 68). The analyt ical performance characteristics of thisassay have been determined by [facility].The modifications h ave not been cleare d or approvedby the FDA. This assay has been validated pursu antto the CLIA regula tions and is used forclinical purposes. For additional information, pl ease refer tohttp://educat ion.[employer]/ faq/GVX393c0( is link if provide d for information/edu catio nal purposes on ly.) JACEK (test code = RAC) Performing Organization Information: Site ID: IG Name: [facility] Address: [address] [place] [address] Director: Dr. Rajinder Grant Site ID: RGA Name: [facility] Address: [address] [place] [address] Director: Rajinder Grant [facility] mRNA E6/E7 REFLEX HPV 16,18/45 2021-06-19 18:43:00 Test Item Value Reference Interpretation Comments Range Clinical information None gi niurka (test code = 10509-9) Date of last NONE GIVEN menstrual period (test code = 8665-2) Prev. pap: (test code NONE G IVEN = 69086-1) Prev. bx: (test code NONE GI NIURKA = 01858-9) Source (test code = None giv en ) Statement of adequacy Satisf actory for (test code = 15730-6) evalua tion.Endocervi cony/transformat ion zone componentpresen t.Age and/or menstrua l status not prov ided Interpretation/result Negati ve for : (test code = intraepitheli al 27377-4) lesion or malignancy. Comment (test code = This Pa p test has ) been evaluated with computerassiste d technology. Review PMT, CT(ASCP)CT video journalist screening l ocation: (test code = 94321-2) [facility] [place] [address] [facility], [facility] [address] 2 Comment (test code = EXPLANA TORElliot NOTE: 0912078) The Pap is a screening test for [...] Detected Not Detected Methodo logy: code = 76697-8) Transcriptio n-Mediat ed Amplificatio n This assay dete cts E6/E7 viral messenger RNA ( mRNA) from 14high-ris k HPV types (16,18,31,33,35 ,39,4 5,51,52,56,58,5 9,66, 68). The analyt ical performance characteristics of thisassay have been determined by [facility].The modifications h ave not been cleare d or approvedby the FDA. This assay has been validated pursu antto the CLIA regula tions and is used forclinical purposes. For additional information, pl ease refer tohttp://educat ion.[employer] .[employer]/ faq/XGI652p6(Th is link if provide d for information/edu catio nal purposes on ly.) RAC (test code = RAC) Performing Organization Information: Site ID: IG Name: [facility] Address: [address] [place] [address] Director: Dr. Rajinder Grant Site ID: RGA Name: [facility] Address: [address] [place] [address] Director: Rajinder Grant [facility] HPV mRNA E6/E7 REFLEX HPV 16,18/45 2021-06-19 18:43:00 Test Item Value Reference Interpretation Comments Range Clinical information None gi niurka (test code = 21687-9) Date of last NONE GIVEN menstrual period (test code = 8665-2) Prev. pap: (test code NONE G IVEN = 09470-7) Prev. bx: (test code NONE GI NIURKA = 74923-3) Source (test code = None giv en ) Statement of adequacy Satisf actory for (test code = 11741-1) evalua tion.Endocervi cony/transformat ion zone componentpresen t.Age and/or menstrua l status not prov ided Interpretation/result Negati ve for : (test code = intraepitheli al 94862-6) lesion or malignancy. Comment (test code = This Pa p test has ) been evaluated with computerassiste d technology. Review PMT, CT(ASCP)CT video journalist screening l ocation: (test code = 86734-4) [facility] [address], [facility] [address] 2 Comment (test code = EXPLANA TORY NOTE: 5587056) The Pap is a screening test for [...] Detected Not Detected Methodo logy: code = 04690-7) Transcriptio n-Mediat ed Amplificatio n This assay dete cts E6/E7 viral messenger RNA ( mRNA) from 14high-ris k HPV types (16,18,31,33,35 ,39,4 5,51,52,56,58,5 9,66, 68). The analyt ical performance characteristics of thisassay have been determined by [facility].The modifications h ave not been cleare d or approvedby the FDA. This assay has been validated pursu antto the CLIA regula tions and is used forclinical purposes. For additional information, pl ease refer tohttp://educat ion.[employer]/ faq/KAC036z3(Th is link if provide d for information/edu catio nal purposes on ly.) RAC (test code = RAC) Performing Organization Information: Site ID: IG Name: [facility] Address: [address] [place] [address] Director: Dr. Rajinder Grant Site ID: RGA Name: [facility] Address: [address] [place] [address] Director: Rajinder Grant [facility] HPV mRNA E6/E7 REFLEX HPV 16,18/45 2021-06-19 18:43:00 Test Item Value Reference Interpretation Comments Range Clinical information None gi niurka (test code = 95319-2) Date of last NONE GIVEN menstrual period (test code = 8665-2) Prev. pap: (test code NONE G IVEN = 73262-1) Prev. bx: (test code NONE GI NIURKA = 15673-8) Source (test code = None giv en ) Statement of adequacy Satisf actory for (test code = 65070-4) evalua tion.Endocervi cony/transformat ion zone componentpresen t.Age and/or menstrua l status not prov ided Interpretation/result Negati ve for : (test code = intraepitheli al 26805-8) lesion or malignancy. Comment (test code = This Pa p test has ) been evaluated with computerassiste d technology. Review PMT, CT(ASCP)CT video journalist screening l ocation: (test code = 96726-7) [facility] [address], [place] [address] 2 Comment (test code = EXPLANA TORY NOTE: 5269644) The Pap is a screening test for [...] Detected Not Detected Methodo logy: code = 46749-4) Transcriptio n-Mediat ed Amplificatio n This assay dete cts E6/E7 viral messenger RNA ( mRNA) from 14high-ris k HPV types (16,18,31,33,35 ,39,4 5,51,52,56,58,5 9,66, 68). The analyt ical performance characteristics of thisassay have been determined by [facility].The modifications h ave not been cleare d or approvedby the FDA. This assay has been validated pursu antto the CLIA regula tions and is used forclinical purposes. For additional information, pl ease refer tohttp://educat ion.[employer] .[employer]/ faq/IBB194o0(Th is link if provide d for information/edu catio nal purposes on ly.) JACEK (test code = RAC) Performing Organization Information: Site ID: IG Name: [facility] Address: [address] [place] [address] Director: Dr. Rajinder Grant Site ID: RGA Name: [facility] Address: [address] [place] [address] Director: Rajinder Grant [facility] AND HPV mRNA E6/E7 REFLEX HPV 16,18/45 2021-06-19 18:43:00 Test Item Value Reference Interpretation Comments Range Clinical information None gi niurka (test code = 55215-9) Date of last NONE GIVEN menstrual period (test code = 8665-2) Prev. pap: (test code NONE G IVEN = 86846-1) Prev. bx: (test code NONE GI NIURKA = 37678-4) Source (test code = None giv en 80735-2) Statement of adequacy Satisf actory for (test code = 28933-9) evalua tion.Endocervi cony/transformat ion zone componentpresen t.Age and/or menstrua l status not prov ided Interpretation/result Negati ve for : (test code = intraepitheli al 02743-0) lesion or malignancy. Comment (test code = This Pa p test has ) been evaluated with computerassiste d technology. Review PMT, CT(ASCP)CT video journalist screening l ocation: (test code = 36903-8) [address], [place] [address] 2 Comment (test code = EXPLANA NONA NOTE: 0786046) The Pap is a screening test for [...] Detected Not Detected Methodo logy: code = 63882-4) Transcriptio n-Mediat ed Amplificatio n This assay dete cts E6/E7 viral messenger RNA ( mRNA) from 14high-ris k HPV types (16,18,31,33,35 ,39,4 5,51,52,56,58,5 9,66, 68). The analyt ical performance characteristics of thisassay have been determined by [facility].The modifications h ave not been cleare d or approvedby the FDA. This assay has been validated pursu antto the CLIA regula tions and is used forclinical purposes. For additional information, pl ease refer tohttp://educat ion.[employer] .[employer]/ faq/HLI950t2(Th is link if provide d for information/edu catio nal purposes on ly.) RAC (test code = RAC) Performing Organization Information: Site ID: IG Name: [facility] Address: [address] [place] [address] Director: Dr. Rajinder Grant Site ID: RGA Name: [facility] Address: [address] [place] [address] Director: Rajinder Grant [facility] PAP AND HPV mRNA E6/E7 REFLEX HPV 16,18/45 2021-06-19 18:43:00 Test Item Value Reference Interpretation Comments Range Clinical information None gi niurka (test code = 60863-0) Date of last NONE GIVEN menstrual period (test code = 8665-2) Prev. pap: (test code NONE G IVEN = 89527-4) Prev. bx: (test code NONE GI NIURKA = 78634-8) Source (test code = None giv en ) Statement of adequacy Satisf actory for (test code = 23655-3) evalua tion.Endocervi cony/transformat ion zone componentpresen t.Age and/or menstrua l status not prov ided Interpretation/result Negati ve for : (test code = intraepitheli al 00119-0) lesion or malignancy. Comment (test code = This Pa p test has ) been evaluated with Nerium Biotechnologyiste d technology. Review PMT, CT(ASCP)CT video journalist screening l ocation: (test code = ) [facility] [address], [facility] [address] 2 Comment (test code = EXPLANA TORY NOTE: 8876155) The Pap is a screening test for [...] Detected Not Detected Methodo logy: code = 79047-2) Transcriptio n-Mediat ed Amplificatio n This assay dete cts E6/E7 viral messenger RNA ( mRNA) from 14high-ris k HPV types (16,18,31,33,35 ,39,4 5,51,52,56,58,5 9,66, 68). The analyt ical performance characteristics of thisassay have been determined by [facility].The modifications h ave not been cleare d or approvedby the FDA. This assay has been validated pursu antto the CLIA regula tions and is used forclinical purposes. For additional information, pl ease refer tohttp://educat ion.[employer] .[employer]/ faq/FPF609i9(Th is link if provide d for information/edu catio nal purposes on ly.) JACEK (test code = JACEK) Performing Organization Information: Site ID: IG Name: [facility] Address: [address] [place] [address] Director: Dr. Rajinder Grant Site ID: RGA Name: [facility] Address: [address] [place] [address] Director: Rajinder Grant [facility]THINPREP TIS PAP AND HPV mRNA E6/E7 REFLEX HPV 16,18/45 2021-06-19 18:43:00 Test Item Value Reference Interpretation Comments Range Clinical information None gi niurka (test code = 90813-3) Date of last NONE GIVEN menstrual period (test code = 8665-2) Prev. pap: (test code NONE G IVEN = 32988-8) Prev. bx: (test code NONE GI NIURKA = 18708-5) Source (test code = None giv en 93552-8) Statement of adequacy Satisf actory for (test code = 03141-1) evalua tion.Endocervi cony/transformat ion zone componentpresen t.Age and/or menstrua l status not prov ided Interpretation/result Negati ve for : (test code = intraepitheli al 40875-7) lesion or malignancy. Comment (test code = This Pa p test has ) been evaluated with computerassiste d technology. Review PMT, CT(ASCP)CT video journalist screening l ocation: (test code = 21488-4) [facility] [address], [facility] [address] Comment (test code = EXPLANA TORY NOTE: 1050714) The Pap is a screening test for [...] Detected Not Detected Methodo logy: code = 31282-1) Transcriptio n-Mediat ed Amplificatio n This assay dete cts E6/E7 viral messenger RNA ( mRNA) from 14high-ris k HPV types (16,18,31,33,35 ,39,4 5,51,52,56,58,5 9,66, 68). The analyt ical performance characteristics of thisassay have been determined by [facility].The modifications h ave not been cleare d or approvedby the FDA. This assay has been validated pursu antto the [place] regula tions and is used forclinical purposes. For additional information, pl ease refer tohttp://educat ion.[employer] .[employer]/ faq/QIJ854a4(Th is link if provide d for information/edu catio nal purposes on ly.) RAC (test code = RAC) Performing Organization Information: Site ID: IG Name: [facility] Address: [address] [place] [address] Director: Dr. Rajinder Grant Site ID: RGA Name: [facility] Address: [address] [place] [address] Director: Rajinder Grant [facility]PLE[facility], WITH REFLEX TO [id number] 09:37:00 Test Item Value Reference Interpretation Comments Range Color, UA (test code YELLOW YELLOW = 5778-6) Appearance (test CLEAR CLEAR code = 5767-9) Specific gravity, 1.001-1.035 urine (test code = 5811-5) pH, urine (test code 5.0-8.0 = 5803-2) Glucose, urine (test NEGATIVE NEGATIVE code = 31884-3) Bilirubin, UA (test NEGATIVE NEGATIVE code = 5770-3) Ketones, UA (test NEGATIVE NEGATIVE code = 2514-8) Occult blood, urine NEGATIVE NEGATIVE (test code = 5794-3) Protein, UA (test NEGATIVE NEGATIVE code = 03297-6) Nitrite, UA (test NEGATIVE NEGATIVE code = [...] code = NONE SEEN See_Comment [Autom ated 03791-1) message] The sy stem which generated this result transmitted reference range : < OR = 2 /HPF. Th e reference range was not used to interpret this result as normal/abnormal . Squamous epithelial NONE SEEN See_Comment [Automa aydin cells, UA (test code message ] The system = 43452-8) which generated this result transmitted reference range [...] URINE, code = 630-4) ROUTINE Micro Number: [id number] Test Status: Fi nal Specimen Source [...] = Performing RAC) Organization Information: Site ID: [facility] Name: [facility] Address: [address] [place] [address] Director: Rajinder Grant Lab Interpretation Abnormal (test code = 66949-5) [facility] WITH REFLEX TO [id number] 09:37:00 Test Item Value Reference Interpretation Comments Range Color, UA (test code YELLOW YELLOW = 5778-6) Appearance (test CLEAR CLEAR code = 5767-9) Specific gravity, 1.001-1.035 urine (test code = 5811-5) pH, urine (test code 5.0-8.0 = 5803-2) Glucose, urine (test NEGATIVE NEGATIVE code = 11137-3) Bilirubin, UA (test NEGATIVE NEGATIVE code = 5770-3) Ketones, UA (test NEGATIVE NEGATIVE code = 2514-8) Occult blood, urine NEGATIVE NEGATIVE (test code = 5794-3) Protein, UA (test NEGATIVE NEGATIVE code = 63304-7) Nitrite, UA (test NEGATIVE NEGATIVE code = [...] code = NONE SEEN See_Comment [Autom ated 51176-2) message] The sy stem which generated this result transmitted reference range : < OR = 2 /HPF. Th e reference range was not used to interpret this result as normal/abnormal . Squamous epithelial NONE SEEN See_Comment [Automa aydin cells, UA (test code message ] The system = 21497-9) which generated this result transmitted reference range [...] URINE, code = 630-4) ROUTINE Micro Number: [id number] Test Status: Fi nal Specimen Source [...] RAC) Organization Information: Site ID: RGA Name: [facility] Address: [address] [place] [address] Director: Rajinder Grant Lab Interpretation Abnormal (test code = 21998-1) [facility] WITH REFLEX TO [id number] 09:37:00 Test Item Value Reference Interpretation Comments Range Color, UA (test code YELLOW YELLOW = 5778-6) Appearance (test CLEAR CLEAR code = 5767-9) Specific gravity, 1.001-1.035 urine (test code = 5811-5) pH, urine (test code 5.0-8.0 = 5803-2) Glucose, urine (test NEGATIVE NEGATIVE code = 69596-0) Bilirubin, UA (test NEGATIVE NEGATIVE code = 5770-3) Ketones, UA (test NEGATIVE NEGATIVE code = 2514-8) Occult blood, urine NEGATIVE NEGATIVE (test code = 5794-3) Protein, UA (test NEGATIVE NEGATIVE code = 75662-9) Nitrite, UA (test NEGATIVE NEGATIVE code = [...] code = NONE SEEN See_Comment [Autom ated 56480-7) message] The sy stem which generated this result transmitted reference range : < OR = 2 /HPF. Th e reference range was not used to interpret this result as normal/abnormal . Squamous epithelial NONE SEEN See_Comment [Automa aydin cells, UA (test code message ] The system = 13573-1) which generated this result transmitted reference range [...] URINE, code = 630-4) ROUTINE Micro Number: [id number] Test Status: Fi nal Specimen Source [...] RAC) Organization Information: Site ID: BEBA Name: [facility] Address: [address] [place] [address] Director: Rajinder Grant Lab Interpretation Abnormal (test code = 36905-5) [facility] WITH REFLEX TO [id number] 09:37:00 Test Item Value Reference Interpretation Comments Range Color, UA (test code YELLOW YELLOW = 5778-6) Appearance (test CLEAR CLEAR code = 5767-9) Specific gravity, 1.001-1.035 urine (test code = 5811-5) pH, urine (test code 5.0-8.0 = 5803-2) Glucose, urine (test NEGATIVE NEGATIVE code = 62667-0) Bilirubin, UA (test NEGATIVE NEGATIVE code = 5770-3) Ketones, UA (test NEGATIVE NEGATIVE code = 2514-8) Occult blood, urine NEGATIVE NEGATIVE (test code = 5794-3) Protein, UA (test NEGATIVE NEGATIVE code = 70554-6) Nitrite, UA (test NEGATIVE NEGATIVE code = [...] code = NONE SEEN See_Comment [Autom ated 68767-2) message] The sy stem which generated this result transmitted reference range : < OR = 2 /HPF. Th e reference range was not used to interpret this result as normal/abnormal . Squamous epithelial NONE SEEN See_Comment [Automa aydin cells, UA (test code message ] The system = 76209-3) which generated this result transmitted reference range [...] URINE, code = 630-4) ROUTINE Micro Number: [id number] Test Status: Fi nal Specimen Source [...] = Performing RAC) Organization Information: Site ID: [facility] Name: [facility] Address: [address] [place] [address] Director: Rajinder Grant Lab Interpretation Abnormal (test code = 58867-8) [facility], WITH REFLEX TO [id number] 09:37:00 Test Item Value Reference Interpretation Comments Range Color, UA (test code YELLOW YELLOW = 5778-6) Appearance (test CLEAR CLEAR code = 5767-9) Specific gravity, 1.001-1.035 urine (test code = 5811-5) pH, urine (test code 5.0-8.0 = 5803-2) Glucose, urine (test NEGATIVE NEGATIVE code = 70251-4) Bilirubin, UA (test NEGATIVE NEGATIVE code = 5770-3) Ketones, UA (test NEGATIVE NEGATIVE code = 2514-8) Occult blood, urine NEGATIVE NEGATIVE (test code = 5794-3) Protein, UA (test NEGATIVE NEGATIVE code = 86561-0) Nitrite, UA (test NEGATIVE NEGATIVE code = [...] code = NONE SEEN See_Comment [Autom ated 09962-9) message] The sy stem which generated this result transmitted reference range : < OR = 2 /HPF. Th e reference range was not used to interpret this result as normal/abnormal . Squamous epithelial NONE SEEN See_Comment [Automa aydin cells, UA (test code message ] The system = 97542-5) which generated this result transmitted reference range [...] URINE, code = 630-4) ROUTINE Micro Number: [id number] Test Status: Fi nal Specimen Source [...] RAC) Organization Information: Site ID: RGA Name: [facility] Address: [address] [place] [address] Director: Rajinder Grant Lab Interpretation Abnormal (test code = 63147-0) [facility], WITH REFLEX TO [id number] 09:37:00 Test Item Value Reference Interpretation Comments Range Color, UA (test code YELLOW YELLOW = 5778-6) Appearance (test CLEAR CLEAR code = 5767-9) Specific gravity, 1.001-1.035 urine (test code = 5811-5) pH, urine (test code 5.0-8.0 = 5803-2) Glucose, urine (test NEGATIVE NEGATIVE code = 73990-8) Bilirubin, UA (test NEGATIVE NEGATIVE code = 5770-3) Ketones, UA (test NEGATIVE NEGATIVE code = 2514-8) Occult blood, urine NEGATIVE NEGATIVE (test code = 5794-3) Protein, UA (test NEGATIVE NEGATIVE code = 12045-3) Nitrite, UA (test NEGATIVE NEGATIVE code = [...] code = NONE SEEN See_Comment [Autom ated 41414-1) message] The sy stem which generated this result transmitted reference range : < OR = 2 /HPF. Th e reference range was not used to interpret this result as normal/abnormal . Squamous epithelial NONE SEEN See_Comment [Automa aydin cells, UA (test code message ] The system = 50822-4) which generated this result transmitted reference range [...] URINE, code = 630-4) ROUTINE Micro Number: [id number] Test Status: Fi nal Specimen Source : Urine Specimen Quality: Adequa te Result: 1,000-9,000 CFU /ML of Group B Streptococcus isolated Beta-hemolytic streptococci ar e predictably susceptible to Penicillin and other beta-lact ams. Susceptibility testing not routinely performed. Plehans se contact the laboratory with in 3 days if susceptibility testing is francois red. Any amount of group B Streptococcus i n urine specimens obtained from female s is a marker of gen ital tract colonizat ion. If this patien t is , plezina e refer to ACOG guidelines for appropriate screening and management of women. Comment: Erythromycin an d clindamycin are not recommended for treatment of urinary tract infections, but clindamycin may be useful for treatment in penicillin dusty rgic patients for rectovaginal colonization or for intrapartum prophylaxis if indicated. RAC (test code = Performing RAC) Organization Information: Site ID: [facility] Name: [facility] Address: [address] [place] [address] Director: Rajinder Grant Lab Interpretation Abnormal (test code = 30390-5) [facility] WITH REFLEX TO [id number] 09:37:00 Test Item Value Reference Interpretation Comments Range Color, UA (test code YELLOW YELLOW = 5778-6) Appearance (test CLEAR CLEAR code = 5767-9) Specific gravity, 1.009 1.001-1.035 urine (test code = 5811-5) pH, urine (test code 7.0 5.0-8.0 = 5803-2) Glucose, urine (test NEGATIVE NEGATIVE code = 15171-3) Bilirubin, UA (test NEGATIVE NEGATIVE code = 5770-3) Ketones, UA (test NEGATIVE NEGATIVE code = 2514-8) Occult blood, urine NEGATIVE NEGATIVE (test code = 5794-3) Protein, UA (test NEGATIVE NEGATIVE code = 54007-9) Nitrite, UA (test NEGATIVE NEGATIVE code = [...] code = NONE SEEN See_Comment [Autom ated 35069-1) message] The sy stem which generated this result transmitted reference range : < OR = 2 /HPF. Th e reference range was not used to interpret this result as normal/abnormal . Squamous epithelial NONE SEEN See_Comment [Automa aydin cells, UA (test code message ] The system = 61118-5) which generated this result transmitted reference range [...] URINE, code = 630-4) ROUTINE Micro Number: [id number] Test Status: Fi nal Specimen Source [...] RAC) Organization Information: Site ID: [facility] Name: [facility] Address: [address] [place] [address] Director: Rajinder Grant Lab Interpretation Abnormal (test code = 97995-2) [facility] urinalysis [id number] 18:20:00 Test Item Value Reference Range Interpretation Comments Color urine, POC (test Straw code = 1028776) Clarity urine, POC (test Clear code = 6723149) Glucose urine, POC (test Negative Negative code = 2735049) Bilirubin urine, POC Negative Negative (test code = 9780517) Ketones urine, POC (test Negative Negative code = 5280121) Specific gravity urine, 1.005-1.030 POC (test code = 9055658) Blood urine, POC (test Trace Negative A code = 0709772) pH urine, POC (test code See_Comment [A utomated message] = 8270540) The system [employer] generated this result transmitted ref erence range: 5.0, 5.5 , 6.0, 6.5, 7.0, 7.5, 8.0, 8.5. The refere nce range was not u sed to interpret this result as normal/abnor mal. Protein urine, POC (test Negative Negative code = 1136338) Urobilinogen urine, POC <2.0 See_Comment [Au tomated message] (test code = 1069673) The sy stem which generated this result transmitted ref erence range: <=2.0. T he reference range was not used to int erpret this result as normal/abnormal . Nitrite urine, POC (test Negative Negative code = 4754573) Leukocyte esterase Negative Negative urine, POC (test code = 7831630) Lab Interpretation (test Abnormal code = 61445-8) [facility] urinalysis [id number] 18:20:00 Test Item Value Reference Range Interpretation Comments Color urine, POC (test Straw code = 3037323) Clarity urine, POC (test Clear code = 8529064) Glucose urine, POC (test Negative Negative code = 2839702) Bilirubin urine, POC Negative Negative (test code = 3985629) Ketones urine, POC (test Negative Negative code = 8678575) Specific gravity urine, 1.005-1.030 POC (test code = 4417538) Blood urine, POC (test Trace Negative A code = 2968709) pH urine, POC (test code See_Comment [A utomated message] = 4866656) The system [employer] generated this result transmitted ref erence range: 5.0, 5.5 , 6.0, 6.5, 7.0, 7.5, 8.0, 8.5. The refere nce range was not u sed to interpret this result as normal/abnor mal. Protein urine, POC (test Negative Negative code = 9201749) Urobilinogen urine, POC <2.0 See_Comment [Au tomated message] (test code = 0772986) The sy stem which generated this result transmitted ref erence range: <=2.0. T he reference range was not used to int erpret this result as normal/abnormal . Nitrite urine, POC (test Negative Negative code = 7715252) Leukocyte esterase Negative Negative urine, POC (test code = 9150662) Lab Interpretation (test Abnormal code = 93211-9) [facility] urinalysis [id number] 18:20:00 Test Item Value Reference Range Interpretation Comments Color urine, POC (test Straw code = 9716874) Clarity urine, POC (test Clear code = 6939279) Glucose urine, POC (test Negative Negative code = 4393318) Bilirubin urine, POC Negative Negative (test code = 9315161) Ketones urine, POC (test Negative Negative code = 9341485) Specific gravity urine, 1.005-1.030 POC (test code = 2908885) Blood urine, POC (test Trace Negative A code = 7932073) pH urine, POC (test code See_Comment [A utomated message] = 2146367) The system [employer] h generated this result transmitted ref erence range: 5.0, 5.5 , 6.0, 6.5, 7.0, 7.5, 8.0, 8.5. The refere nce range was not u sed to interpret this result as normal/abnor mal. Protein urine, POC (test Negative Negative code = 3383444) Urobilinogen urine, POC <2.0 See_Comment [Au tomated message] (test code = 5619284) The sy stem which generated this result transmitted ref erence range: <=2.0. T he reference range was not used to int erpret this result as normal/abnormal . Nitrite urine, POC (test Negative Negative code = 3582022) Leukocyte esterase Negative Negative urine, POC (test code = 8659276) Lab Interpretation (test Abnormal code = 42856-1) [facility] urinalysis [id number] 18:20:00 Test Item Value Reference Range Interpretation Comments Color urine, POC (test Straw code = 9957943) Clarity urine, POC (test Clear code = 2488446) Glucose urine, POC (test Negative Negative code = 1774799) Bilirubin urine, POC Negative Negative (test code = 8145718) Ketones urine, POC (test Negative Negative code = 7087742) Specific gravity urine, 1.005-1.030 POC (test code = 7897094) Blood urine, POC (test Trace Negative A code = 3420609) pH urine, POC (test code See_Comment [A utomated message] = 3448917) The system [employer] generated this result transmitted ref erence range: 5.0, 5.5 , 6.0, 6.5, 7.0, 7.5, 8.0, 8.5. The refere nce range was not u sed to interpret this result as normal/abnor mal. Protein urine, POC (test Negative Negative code = 8039830) Urobilinogen urine, POC <2.0 See_Comment [Au tomated message] (test code = 3201791) The [employer] stem which generated this result transmitted ref erence range: <=2.0. T he reference range was not used to int erpret this result as normal/abnormal . Nitrite urine, POC (test Negative Negative code = 3939507) Leukocyte esterase Negative Negative urine, POC (test code = 1085912) Lab Interpretation (test Abnormal code = 78279-2) [facility] urinalysis [id number] 18:20:00 Test Item Value Reference Range Interpretation Comments Color urine, POC (test Straw code = 8767458) Clarity urine, POC (test Clear code = 2887208) Glucose urine, POC (test Negative Negative code = 5597236) Bilirubin urine, POC Negative Negative (test code = 9275538) Ketones urine, POC (test Negative Negative code = 3972962) Specific gravity urine, 1.005-1.030 POC (test code = 1877328) Blood urine, POC (test Trace Negative A code = 9030835) pH urine, POC (test code See_Comment [A utomated message] = 7161713) The system [employer] generated this result transmitted ref erence range: 5.0, 5.5 , 6.0, 6.5, 7.0, 7.5, 8.0, 8.5. The refere nce range was not u sed to interpret this result as normal/abnor mal. Protein urine, POC (test Negative Negative code = 3915894) Urobilinogen urine, POC <2.0 See_Comment [Au tomated message] (test code = 5506496) The sy stem which generated this result transmitted ref erence range: <=2.0. T he reference range was not used to int erpret this result as normal/abnormal . Nitrite urine, POC (test Negative Negative code = 8624942) Leukocyte esterase Negative Negative urine, POC (test code = 9946585) Lab Interpretation (test Abnormal code = 33660-6) [facility] urinalysis [id number] 18:20:00 Test Item Value Reference Range Interpretation Comments Color urine, POC (test Straw code = 6049326) Clarity urine, POC (test Clear code = 9359839) Glucose urine, POC (test Negative Negative code = 8065376) Bilirubin urine, POC Negative Negative (test code = 8545334) Ketones urine, POC (test Negative Negative code = 1222114) Specific gravity urine, 1.005-1.030 POC (test code = 8827291) Blood urine, POC (test Trace Negative A code = 9590431) pH urine, POC (test code See_Comment [A utomated message] = 1204504) The system [employer] h generated this result transmitted ref erence range: 5.0, 5.5 , 6.0, 6.5, 7.0, 7.5, 8.0, 8.5. The refere nce range was not u sed to interpret this result as normal/abnor mal. Protein urine, POC (test Negative Negative code = 5135125) Urobilinogen urine, POC <2.0 See_Comment [Au tomated message] (test code = 6766271) The sy stem which generated this result transmitted ref erence range: <=2.0. T he reference range was not used to int erpret this result as normal/abnormal . Nitrite urine, POC (test Negative Negative code = 8093755) Leukocyte esterase Negative Negative urine, POC (test code = 4648592) Lab Interpretation (test Abnormal code = 87059-6) [facility] urinalysis [id number] 18:20:00 Test Item Value Reference Range Interpretation Comments Color urine, POC (test Straw code = 5202136) Clarity urine, POC (test Clear code = 5434320) Glucose urine, POC (test Negative Negative code = 2063091) Bilirubin urine, POC Negative Negative (test code = 0116506) Ketones urine, POC (test Negative Negative code = 7973851) Specific gravity urine, 1.015 1.005-1.030 POC (test code = 3586828) Blood urine, POC (test Trace Negative A code = 4086004) pH urine, POC (test code 8.0 See_Comment [A utomated message] = 7280742) The system [employer] generated this result transmitted ref erence range: 5.0, 5.5 , 6.0, 6.5, 7.0, 7.5, 8.0, 8.5. The refere nce range was not u sed to interpret this result as normal/abnor mal. Protein urine, POC (test Negative Negative code = 9701574) Urobilinogen urine, POC <2.0 <=2.0 (test code = 7706634) Nitrite urine, POC (test Negative Negative code = 6289492) Leukocyte esterase Negative Negative urine, POC (test code = 7922347) Lab Interpretation (test Abnormal code = 02223-8) [facility] Rene-CoV-2 (COVID-19) RNA [Presence] in Respiratory specimen by LATESHA with probe [id number] 09:55:01 Test Item Value Reference Range Interpretation Comments SARS-CoV-2 (COVID-19) RNA Not detected Not-Detected [Presence] in Respiratory specimen by LATESHA with probe detection (test code = 65598-0) Whether patient is employed in a healthcare setting (test code = 41659-4) Whether the patient has symptoms related to condition of interest (test code = 20715-8) Patient was hospitalized because of this condition (test code = 46639-9) Whether the patient was admitted to intensive care unit (ICU) for condition of interest (test code = 46551-5) Whether patient resides in a congregate care setting (test code = 71329-5) DESI CAMARGOARS-CoV-2 (COVID-19) RNA [Presence] in Respiratory specimen by LATESHA with probe [id number] 03:07:44 Test Item Value Reference Range Interpretation Comments SARS-CoV-2 (COVID-19) RNA Not detected Not-Detected [Presence] in Respiratory specimen by LATESHA with probe detection (test code = 01595-8) Whether patient is employed in a healthcare setting (test code = 39622-8) Whether the patient has symptoms related to condition of interest (test code = 76582-9) Patient was hospitalized because of this condition (test code = 32925-0) Whether the patient was admitted to intensive care unit (ICU) for condition of interest (test code = 69550-3) Whether patient resides in a congregate care setting (test code = 70732-9) [facility]-LeU-2 (COVID-19) RNA [Presence] in Respiratory specimen by LATESHA with probe [id number] 02:34:50 Test Item Value Reference Range Interpretation Comments SARS-CoV-2 (COVID-19) RNA Not detected Not-Detected [Presence] in Respiratory specimen by LATESHA with probe detection (test code = 72109-4) Whether patient is employed in a healthcare setting (test code = 27966-7) Whether the patient has symptoms related to condition of interest (test code = 57708-8) Patient was hospitalized because of this condition (test code = 92410-3) Whether the patient was admitted to intensive care unit (ICU) for condition of interest (test code = 62736-5) Whether patient resides in a congregate care setting (test code = 98143-8) [facility]-VuG-2 (COVID-19) RNA [Presence] in Respiratory specimen by LATESHA with probe [id number] 22:46:50 Test Item Value Reference Range Interpretation Comments SARS-CoV-2 (COVID-19) RNA Not detected Not-Detected [Presence] in Respiratory specimen by LATESHA with probe detection (test code = 30190-0) [facility]I [facility]-CoV-2 (COVID-19) RNA [Presence] in Respiratory specimen by LATESHA with probe [id number] 10:19:38 Test Item Value Reference Range Interpretation Comments SARS-CoV-2 (COVID-19) RNA Not detected Not-Detected [Presence] in Respiratory specimen by LATESHA with probe detection (test code = 67539-8) [facility]-CoV-2 (COVID-19) RNA [Presence] in Respiratory specimen by LATESHA with probe [id number] 00:17:03 Test Item Value Reference Range Interpretation Comments SARS-CoV-2 (COVID-19) RNA Not detected Not-Detected [Presence] in Respiratory specimen by LATESHA with probe detection (test code = 07718-8) [facility]-CoV-2 (COVID-19) RNA [Presence] in Respiratory specimen by LATESHA with probe [id number] 00:59:15 Test Item Value Reference Range Interpretation Comments SARS-CoV-2 (COVID-19) RNA Not detected Not-Detected [Presence] in Respiratory specimen by LATESHA with probe detection (test code = 32004-5) [place] [address]+ i-STAT [id number] 08:12:00 Test Item Value Reference [...] PELVIS WITHOUT CONTRAST, RENAL STONE PROTOCOL:Location code: [id number] HISTORY: Flank painCOMPARISON: CT abdomen and pelvis [...] Range Interpretation Comments COLOR (test code = [place] YELLOW A COLU) CLARITY (test code = [...] 11:03:05CT abdomen and pelvis with contrastLocation Code: [id number] HISTORY: Lower abdominal painCOMPARISON: NoneTechnique: Helical CT [...]
[2022-05-21] MEDS ORDERED: KETOROLAC 30 MG/ML INJ ONE (23:42)
[2022-05-21] MEDS ORDERED: NA CHLORIDE 0.9% 1,000 ML ONE (23:42)
[2022-05-21 23:59] LABS: Absolute Lymphocytes (CBC) 2.2 K/uL (0.7-4.9); Hematocrit 43.3 % (36.0-45.0); Lymphocytes % 39.9 % (15.3-44.8); MCV 90.7 fL (80-100); MPV 7.9 fL (7.6-11.3); RBC Red Blood Cell Count 4.77 M/uL (3.86-4.86)
[2022-05-22 00:16] LABS: Albumin 4.4 g/dL (3.4-5.0); Bilirubin Total 0.3 mg/dL (0.2-1.0); Potassium 4.4 mmol/L (3.5-5.1); Protein, Total 7.8 g/dL (6.4-8.2)
--- NOTE | 2022-05-22 01:43 | EDPHYS ---
Physician Documentation [facility] Name: Fany Meza Age: 52 yrs Sex: Female : 1970 Arrival Date: 05/21/2022 Time: 22:49 Bed 8 Private MD: ED Physician Tam Meraz HPI: 05/21 23:44 This 52 yrs old Female presents to ER via Ambulatory with complaints of Urinary snw Incontinence, Pelvic Pain. 23:44 The patient presents with urinary symptoms, dysuria, frequency, hesitancy, urgency, snw urinary retention. Onset: The symptoms/episode began/occurred acutely, 3 month(s) ago, and became persistent. Associated signs and symptoms: The patient has no apparent associated signs or symptoms. Severity of symptoms: At their worst the symptoms were moderate, severe. The patient has not experienced similar symptoms in the past. Seeing Dr. Allen. 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 - Social history:: Smoking status: Patient reports the use of cigarette tobacco products, smokes one-half pack cigarettes per day. ROS: 23:43 Constitutional: Negative for fever, chills, and weight loss, Eyes: Negative for injury, snw pain, redness, and discharge, ENT: Negative for injury, pain, and discharge, Neck: Negative for injury, pain, and swelling, Cardiovascular: Negative for chest pain, palpitations, and edema, Respiratory: Negative for shortness of breath, cough, wheezing, and pleuritic chest pain. 23:43 Back: Negative for injury and pain. 23:43 MS/Extremity: Negative for injury and deformity, Skin: Negative for injury, rash, and discoloration, Neuro: Negative for headache, weakness, numbness, tingling, and seizure, Psych: Negative for depression, anxiety, suicide ideation, homicidal ideation, and hallucinations. 23:43 Abdomen/GI: Positive for abdominal cramps, abdominal distension. 23:43 : Positive for urinary symptoms, urinary frequency, small amounts. Exam: 23:42 Head/Face: Normocephalic, atraumatic. Eyes: Pupils equal round and reactive to light, snw extra-ocular motions intact. Lids and lashes normal. Conjunctiva and sclera are non-icteric and not injected. Cornea within normal limits. Periorbital areas with no swelling, redness, or edema. ENT: Nares patent. No nasal discharge, no septal abnormalities noted. Tympanic membranes are normal and external auditory canals are clear. Oropharynx with no redness, swelling, or masses, exudates, or evidence of obstruction, uvula midline. Mucous membranes moist. Neck: Trachea midline, no thyromegaly or masses palpated, and no cervical lymphadenopathy. Supple, full range of motion without nuchal rigidity, or vertebral point tenderness. No Meningismus. Chest/axilla: Normal chest wall appearance and motion. Nontender with no deformity. No lesions are appreciated. Cardiovascular: Regular rate and rhythm with a normal S1 and S2. No gallops, murmurs, or rubs. Normal PMI, no JVD. No pulse deficits. Respiratory: Lungs have equal breath sounds bilaterally, clear to auscultation and percussion. No rales, rhonchi or wheezes noted. No increased work of breathing, no retractions or nasal flaring. 23:42 Back: No spinal tenderness. No costovertebral tenderness. Full range of motion. Skin: Warm, dry with normal turgor. Normal color with no rashes, no lesions, and no evidence of cellulitis. MS/ Extremity: Pulses equal, no cyanosis. Neurovascular intact. Full, normal range of motion. Neuro: Awake and alert, GCS 15, oriented to person, place, time, and situation. Cranial nerves II-XII grossly intact. Motor strength 5/5 in all extremities. Sensory grossly intact. Cerebellar exam normal. Normal gait. 23:42 Constitutional: The patient appears alert, awake, anxious, uncomfortable. 23:42 Abdomen/GI: Inspection: abdomen appears normal, Bowel sounds: normal, Palpation: moderate abdominal tenderness, in the suprapubic area. 23:42 Psych: Behavior/mood is pleasant, anxious, Oriented to person, place, time. Vital Signs: 23:11 BP 136 / 84; Pulse 77; Resp 18; Temp 98(TE); Pulse Ox 97% on R/A; Weight 81.19 kg; kl Height 5 ft. 4 in. (162.56 cm); Pain 10/19; 05/22 01:25 BP 109 / 73; Pulse 56; Resp 16; Pulse Ox 96% on R/A; jb4 02:02 BP 105 / 73; Pulse 57; Resp 15; Pulse Ox 96% ; vc1 05/21 23:11 Body Mass Index 30.72 (81.19 kg, 162.56 cm) kl MDM: 05/21 23:13 Patient medically screened. snw 05/22 01:44 Differential diagnosis: appendicitis, kidney stone, malignancy. Data reviewed: vital snw signs, nurses notes. Care significantly affected by the following chronic conditions: Hypertension. Counseling: I had a detailed discussion with the patient and/or guardian regarding: the historical points, exam findings, and any diagnostic results supporting the discharge/admit diagnosis, lab results, radiology results, the need for outpatient follow up, to return to the emergency department if symptoms worsen or persist or if there are any questions or concerns that arise at home. Special discussion: Based on the history and exam findings, there is no indication for further emergent testing or inpatient evaluation. I discussed with the patient/guardian the need to see the primary care provider for further evaluation of the symptoms. I discussed with the patient/guardian the need to see the urologist for further evaluation of the symptoms. 05/21 23:15 Order name: CBC with Diff; Complete Time: 00:09 snw 05/21 23:15 Order name: CMP; Complete Time: 00:18 snw 05/21 23:15 Order name: CT Abd/Pelvis - IV Contrast Only snw 05/22 00:35 Order name: CREATININE WHOLE BLOOD; Complete Time: 00:36 EDMS 05/21 23:15 Order name: IV Saline Lock; Complete Time: 23:49 snw 05/21 23:15 Order name: Labs collected and sent; Complete Time: 23:49 snw Administered Medications: 05/21 23:49 Drug: NS 0.9% 1000 ml Route: IV; Rate: 1 bolus; Site: right antecubital; jb4 23:49 Drug: TORadol - (ketorolac) 15 mg Route: IVP; Site: right antecubital; jb4 05/22 01:44 Drug: Flomax (tamsulosin) 0.4 mg Route: PO; jb4 Disposition: 05:04 Co-signature as Attending Physician, Tam Meraz MD I reviewed the patient's care rn provided by the Advanced Practice Provider and agree with the diagnosis and treatment plan. Disposition Summary: 05/22/22 01:42 Discharge Ordered Location: Home snw Condition: Stable snw Diagnosis - Hydronephrosis with renal and ureteral calculous obstruction - 2mm stone at left UVJsnw Followup: snw - With: Emergency Department - When: As needed - Reason: Worsening of condition Followup: snw - With: Private Physician - When: 2 - 3 days - Reason: Recheck today's complaints, Continuance of care, Re-evaluation by your physician Discharge Instructions: - Discharge Summary Sheet snw - Kidney Stones snw - Dietary Guidelines to Help Prevent Kidney Stones snw - Rehydration, Adult snw Forms: - Medication Reconciliation Form snw - Thank You Letter snw - Antibiotic Education snw - Prescription Opioid Use snw Prescriptions: - Flomax 0.4 mg Oral capsule - take 1 capsule by ORAL route once daily 1/2 hour following the same meal each snw day; 14 capsule; Refills: 0, Product Selection Permitted Signatures: Dispatcher [employer] Gini Bella, RN Cathy Sidhu, MISSION ASSESSMENT SPECIALIST-C MISSION ASSESSMENT SPECIALIST-Csnw Tam Meraz MD MD rn Bryson, James, RN RN jb4
--- NOTE | 2022-05-22 01:43 | ER ---
Nurse's Notes [facility] Name: Fany Meza Age: 52 yrs Sex: Female : 1970 Arrival Date: 05/21/2022 Time: 22:49 Bed 8 Private MD: Diagnosis: Hydronephrosis with renal and ureteral calculous obstruction-2mm stone at left UVJ Presentation: 05/21 23:11 Chief complaint: Patient states: urinary pain and frequency x 3 weeks pain is severe at kl this point seen by Zulema x 3 days negative for UTI. Coronavirus screen: Vaccine status: Patient reports receiving the 2nd dose of the covid vaccine. Ebola Screen: Patient negative for fever greater than or equal to 101.5 degrees Fahrenheit, and additional compatible Ebola Virus Disease symptoms. Initial Sepsis Screen: Does the patient meet any 2 criteria? No. Patient's initial sepsis screen is negative. Does the patient have a suspected source of infection? No. Patient's initial sepsis screen is negative. Risk Assessment: Do you want to hurt yourself or someone else? Patient reports no desire to harm self or others. 23:11 Method Of Arrival: Ambulatory kl 23:11 Acuity: SHARAN 3 kl Triage Assessment: 23:13 General: Appears distressed, uncomfortable, Behavior is cooperative, anxious. Pain: kl Complains of pain in suprapubic area. 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 - Social history:: Smoking status: Patient reports the use of cigarette tobacco products, smokes one-half pack cigarettes per day. Screenin/10 02:03 [facility] ED Fall Risk Assessment (Adult) History of falling in the last 3 months, vc1 including since admission No falls in past 3 months (0 pts) Confusion or Disorientation No (0 pts) Intoxicated or Sedated No (0 pts) Impaired Gait No (0 pts) Mobility Assist Device Used No (0 pt) Altered Elimination No (0 pt) Score/Fall Risk Level 0 - 2 = Low Risk Oriented to surroundings, Maintained a safe environment. Abuse screen: Denies threats or abuse. Nutritional screening: No deficits noted. Tuberculosis screening: No symptoms or risk factors identified. Assessment: 05/21 23:30 General: Appears in no apparent distress. comfortable, Behavior is calm, cooperative, jb4 appropriate for age. Pain: Complains of pain in back Pain does not radiate. Pain currently is 7 out of 10 on a pain scale. Neuro: Level of Consciousness is awake, alert, obeys commands, Oriented to person, place, time, situation. Cardiovascular: Patient's skin is warm and dry. Respiratory: Airway is patent Respiratory effort is even, unlabored, Respiratory pattern is regular, symmetrical. GI: No signs and/or symptoms were reported involving the gastrointestinal system. : No signs and/or symptoms were reported regarding the genitourinary system. EENT: No signs and/or symptoms were reported regarding the EENT system. Derm: Skin is intact, Skin is pink, warm \T\ dry. Musculoskeletal: Circulation, motion, and sensation intact. Range of motion: intact in all extremities. 05/22 00:30 Reassessment: Patient appears in no apparent distress at this time. Patient and/or jb4 family updated on plan of care and expected duration. Pain level reassessed. Patient is alert, oriented x 3, equal unlabored respirations, skin warm/dry/pink. Patient states feeling better. 01:25 Reassessment: Patient appears in no apparent distress at this time. Patient and/or jb4 family updated on plan of care and expected duration. Pain level reassessed. Patient is alert, oriented x 3, equal unlabored respirations, skin warm/dry/pink. Vital Signs: 05/21 23:11 BP 136 / 84; Pulse 77; Resp 18; Temp 98(TE); Pulse Ox 97% on R/A; Weight 81.19 kg; kl Height 5 ft. 4 in. (162.56 cm); Pain 10/19; 05/22 01:25 BP 109 / 73; Pulse 56; Resp 16; Pulse Ox 96% on R/A; jb4 02:02 BP 105 / 73; Pulse 57; Resp 15; Pulse Ox 96% ; vc1 05/21 23:11 Body Mass Index 30.72 (81.19 kg, 162.56 cm) ED Course: 05/21 22:49 Patient arrived in ED. jj6 22:51 Cathy Lino FNP-C [facility]. snw 22:51 Tam Meraz MD is Attending Physician. snw 23:13 Triage completed. kl 23:30 Arm band placed on right wrist. vc1 23:30 Patient has correct armband on for positive identification. Bed in low position. Call vc1 light in reach. Pulse ox on. NIBP on. 23:36 Henrry Alfonso, RN is Primary Nurse. jb4 23:49 CBC with Diff Sent. jb4 23:49 CMP Sent. jb4 05/22 00:21 CT Abd/Pelvis - IV Contrast Only In Process Unspecified. EDMS 02:03 No provider procedures requiring assistance completed. IV discontinued, intact, vc1 bleeding controlled, No redness/swelling at site. Pressure dressing applied. Administered Medications: 05/21 23:49 Drug: NS 0.9% 1000 ml Route: IV; Rate: 1 bolus; Site: right antecubital; jb4 23:49 Drug: TORadol - (ketorolac) 15 mg Route: IVP; Site: right antecubital; jb4 05/22 01:44 Drug: Flomax (tamsulosin) 0.4 mg Route: PO; jb4 Medication: 02:04 VIS not applicable for this client. vc1 Outcome: 01:42 Discharge ordered by . snw 02:04 Discharged to home ambulatory. vc1 02:04 Condition: good 02:04 Discharge instructions given to patient, Instructed on discharge instructions, follow up and referral plans. medication usage, Demonstrated understanding of instructions, follow-up care, medications, Prescriptions given X 1. 02:04 Patient left the ED. vc1 Signatures: Dispatcher [employer] EDMS Gini Glover RN RN kl Waters, Shelly, FNP-C [employer]PERATOR-Csnw Henrry Alfonso RN RN jb Kortney Celis jj6 Bev Douglas RN RN vc1
[2022-05-22] MEDS ORDERED: TAMSULOSIN 0.4 MG SR CAP ONE (01:45)
[2022-05-22 03:04] VITALS: TEMP 98
[2022-05-22 03:08] VITALS: O2SAT 96
[2022-05-22 03:09] VITALS: BP 105/73
--- NOTE | 2022-05-22 20:20 | RAD REPORT ---
EXAM DESCRIPTION: CT - Abdomen Pelvis W Contrast - 05/22/2022 7:09 am CLINICAL HISTORY: The patient is 52 years old and is Female; ABD PAIN TECHNIQUE: Axial computed tomography images of the abdomen and pelvis with intravenous contrast. S agittal and coronal reformatted images were created and reviewed. This CT exam was performed using one or more of the following dose reduction techniques: automated exposure control, adjustment of t he mA and/or kV according to patient size, and/or use of iterative reconstruction technique. COMPARISON: No relevant prior studies available. FINDINGS: Lung bases: Unremarkable. No mass. No consolidation. ABDOMEN: Liver: Unremarkable. No mass. Gallbladder and bile ducts: Unremarkable. No calcified stones. No ductal dilation. Pancreas: Unremarkable. No mass. No ductal dilation. Spleen: Unremarkable. No splenomegaly. Adrenals: Unremarkable. No mass. Kidneys and ureters: Unremarkable. No solid mass. No hydronephrosis. Stomach and bowel: Unremarkable. No obstruction. No mucosal thickening. PELVIS: Appendix: The appendix is normal. Bladder: Suggestion of a tiny poorly visualized 2 mm stone in the bladder near the left UVJ. Mil d left hydroureter. Reproductive: Unremarkable as visualized. ABDOMEN and PELVIS: Intraperitoneal space: Unremarkable. No free air. No significant fluid collection. Bones/joints: No acute fracture. No dislocation. Soft tissues: Unremarkable. Vasculature: Unremarkable. No abdominal aortic aneurysm. Lymph nodes: Unremarkable. No enlarged lymph nodes. Other findings: Disc bulge at L5-S1. IMPRESSION: Suggestion of a tiny poorly visualized 2 mm stone in the bladder near the left UVJ. Mild left hydroureter. Electronically signed by: Troy Wellington MD 05/22/2022 12:54 AM SLOT AMBASSADOR Due to temporary technical issues with the PACS/Fluency reporting system, reports are being signed by the in house radiologists without review as a courtesy to insure prompt reporting. The interpreting radiologist is fully responsible for the content of the report.
== END 2022-05-22 02:04 | disposition home or self-care (01) ==
LOC: ER 22:45
DX: N13.2 Hydronephrosis with renal and ureteral calculous obstruction (principal); I10 Essential (primary) hypertension; F17.210 Nicotine dependence, cigarettes, uncomplicated; Z85.41 Personal history of malignant neoplasm of cervix uteri
CPT/HCPCS: 85025; 36415; 82565; 80053; 74177; 96374; 99284; Q9967; J7030

== ENCOUNTER 2022-06-24 12:04 | Emergency (ER) | payer OTHER ==
--- OUTSIDE RECORDS SUMMARY | 2022-06-24 12:19 | XMS REPORT | Continuity of Care Document ---
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 [facility] ([place]) 00:00: 00:00 mouth [facility]-325 mg 00 :00 every 6 l per tablet (six) hours as needed for moderate pain or severe pain for up to 2 days .acute pain. Max Daily Amount: 4 tablets HYDROcodone 2021-0 2021- 28 1{tbl} Q6H Take 1 [facility] -acetaminop 6-21 06-[address] [facility] ([facility]) 00:00: 00:00 mouth [facility]-325 mg 00 :00 every 6 l per tablet (six) hours as needed for moderate pain or severe pain for up to 2 days .acute pain. Max Daily Amount: 4 tablets HYDROcodone 2-0 2021- No [id number] 1{tbl} Q6H Take 1 [facility] -acetaminop 6-21 06-[address] [facility] ([place]) 00:00: 00:00 mouth [facility]-325 mg 00 :00 every 6 l per tablet (six) hours as needed for moderate pain or severe pain for up to 2 days .acute pain. Max Daily Amount: 4 tablets HYDROcodone 2022-0 2021- No [id number] 1{tbl} Q6H Take 1 [facility] -acetaminop 6-21 06-[address] [facility] ([place]) 00:00: 00:00 [facility]-325 mg 00 :00 every 6 l per tablet (six) hours as needed for moderate pain or severe pain for up to 2 days .acute pain. Max Daily Amount: 4 tablets HYDROcodone 2021-0 1{tbl} Q6H Take 1 [facility] -acetaminop 6-21 06-[address] [facility] ([place]) 00:00: 00:00 [facility] 5-325 mg 00 :00 every 6 l per tablet (six) hours as needed for moderate pain or severe pain for up to 2 days .acute pain. Max Daily Amount: 4 tablets HYDROcodone 2021-0 2021- 1{tbl} Q6H Take 1 [facility] -acetaminop 6-21 06-[address] [facility] ([place]) 00:00: 00:00 [facility]-325 mg 00 :00 every 6 l per tablet (six) hours as needed for moderate pain or severe pain for up to 2 days .acute pain. Max Daily Amount: 4 tablets HYDROcodone 2021-0 No 1{tbl} Q6H Take 1 [facility] -acetaminop 6-21 06-[address] [facility] ([place]) 00:00: 00:00 [facility]-325 mg 00 :00 every 6 l per tablet (six) hours as needed for moderate pain or severe pain for up to 2 days .acute pain. Max Daily Amount: 4 tablets HYDROcodone 2021-0 No 1{tbl} Q6H Take 1 [facility] -acetaminop 6-21 06-[address] [facility] ([facility]) 00:00: 00:00 mouth [facility] 5-325 mg 00 :00 every 6 l per tablet (six) hours as needed for moderate pain or severe pain for up to 2 days .acute pain. Max Daily Amount: 4 tablets HYDROcodone 2-0 No 1{tbl} Q6H Take 1 [facility] -acetaminop 6-21 06-[address] [facility] ([facility]) 00:00: 00:00 mouth [facility] 5-325 mg 00 :00 every 6 l per tablet (six) hours as needed for moderate pain or severe pain for up to 2 days .acute pain. Max Daily Amount: 4 tablets HYDROcodone 2-0 2021- No [id number] 1{tbl} Q6H Take 1 [facility] -acetaminop 6-21 06-[address] [facility] ([facility]) 00:00: 00:00 mouth [facility] 5-325 mg 00 :00 every 6 l per tablet (six) hours as needed for moderate pain or severe pain for up to 2 days .acute pain. Max Daily Amount: 4 tablets HYDROcodone 2-0 2021- [place] [id number] 1{tbl} Q6H Take 1 [facility] -acetaminop 6-21 06-[address] [facility] ([facility]) 00:00: 00:00 mouth [facility] 5-325 mg 00 :00 every 6 l per tablet (six) hours as needed for moderate pain or severe pain for up to 2 days .acute pain. Max Daily Amount: 4 tablets HYDROcodone 2021-0 2021- No [id number] 1{tbl} Q6H Take 1 [facility] -acetaminop 6-21 06-[address] [facility] ([facility]) 00:00: 00:00 mouth [facility]-325 mg 00 :00 every 6 l per tablet (six) hours as needed for moderate pain or severe pain for up to 2 days .acute pain. Max Daily Amount: 4 tablets HYDROcodone 2-0 2021- No [id number] 1{tbl} Q6H Take 1 [facility] -acetaminop 6-21 06-[address] [facility] ([facility]) 00:00: 00:00 [facility] 5-325 mg 00 :00 every 6 l per tablet (six) hours as needed for moderate pain or severe pain for up to 2 days .acute pain. Max Daily Amount: 4 tablets HYDROcodone 2-0 2021- No [id number] 1{tbl} Q6H Take 1 [facility] -acetaminop 6-21 06-[address] [facility] ([facility]) 00:00: 00:00 mouth [facility]-325 mg 00 :00 every 6 l per tablet (six) hours as needed for moderate pain or severe pain for up to 2 days .acute pain. Max Daily Amount: 4 tablets HYDROcodone 2022-0 2021- No 1{tbl} Q6H Take 1 [facility] -acetaminop 6-21 06-[address] [facility] ([facility]) 00:00: 00:00 mouth [facility] 5-325 mg 00 :00 every 6 l per tablet (six) hours as needed for moderate pain or severe pain for up to 2 days .acute pain. Max Daily Amount: 4 tablets HYDROcodone 2021-0 2021- No 1{tbl} Q6H Take 1 [facility] -acetaminop 6-21 06-[address] [facility] ([facility]) 00:00: 00:00 mouth [facility] 5-325 mg 00 :00 every 6 l per tablet (six) hours as needed for moderate pain or severe pain for up to 2 days .acute pain. Max Daily Amount: 4 tablets HYDROcodone 2021-0 2021- 1{tbl} Q6H Take 1 [facility] -acetaminop 6-21 06-[address] [facility] ([facility]) 00:00: 00:00 mouth [facility] 5-325 mg 00 :00 every 6 l per tablet (six) hours as needed for moderate pain or severe pain for up to 2 days .acute pain. Max Daily Amount: 4 tablets HYDROcodone 2021-0 2021- 1{tbl} Q6H Take 1 [facility] -acetaminop 6-21 06-[address] [facility] ([facility]) 00:00: 00:00 mouth [facility] 5-325 mg 00 :00 every 6 l per tablet (six) hours as needed for moderate pain or severe pain for up to 2 days .acute pain. Max Daily Amount: 4 tablets HYDROcodone 2021-0 2021- No 1{tbl} Q6H Take 1 [facility] -acetaminop 6-21 06-[address] [facility] ([facility]) 00:00: 00:00 [facility] 5-325 mg [...] Take 1 [facility] (NORVASC) 5 6-05 20- tablet (5 st mg tablet 00:00: [...] Take 1 [facility] (NORVASC) 5 6-05 20- tablet (5 st mg tablet 00:00: [...] DAILY WITH MEALS meclizine 2021- No 25mg Q.[id number] Take 1 [facility] (ANTIVERT) 08-26 [id number] tablet (25 st 25 mg 00:00: 00:00 3D mg total) [facility] tablet 00 :00 by mouth 3 l (three) times a day as needed for dizziness for up to 30 days. meclizine 2021- No 25mg Q.[id number] Take 1 [facility] (ANTIVERT) 08-26 [id number] tablet (25 st 25 mg 00:00: 00:00 3D mg total) Hospit a tablet 00 :00 by mouth 3 l (three) times a day as needed for dizziness for up to 30 days. meclizine 2021- No 25mg Q.[id number] Take 1 [facility] (ANTIVERT) 517 -10 [id number] tablet (25 st 25 mg 00:00: 00:00 3D mg total) Hospit a tablet 00 :00 by mouth 3 l (three) times a day as needed for dizziness for up to 30 days. meclizine 2021- No 25mg Q.[id number] Take 1 [facility] (ANTIVERT) 17 -10 [id number] tablet (25 st 25 mg 00:00: 00:00 3D mg total) Hospit a tablet 00 :00 by mouth 3 l (three) times a day as needed for dizziness for up to 30 days. meclizine 2021- No 25mg Q.[id number] Take 1 [facility] (ANTIVERT) 08-26-10 [id number] tablet (25 st 25 mg 00:00: 00:00 3D mg total) Hospit a tablet 00 :00 by mouth 3 l (three) times a day as needed for dizziness for up to 30 days. meclizine 2021- No 25mg Q.[id number] Take 1 [facility] (ANTIVERT) 08-26-10 [id number] tablet (25 st 25 mg 00:00: 00:00 3D mg total) Hospit a tablet 00 :00 by mouth 3 l (three) times a day as needed for dizziness for up to 30 days. meclizine 2021- No 25mg Q.[id number] Take 1 [facility] (ANTIVERT) 17 -10 [id number] tablet (25 st 25 mg 00:00: 00:00 3D mg total) Hospit a tablet 00 :00 by mouth 3 l (three) times a day as needed for dizziness for up to 30 days. meclizine 2021-2021- No 25mg Q.[id number] Take 1 [facility] (ANTIVERT) 517 -10 [id number] tablet (25 st 25 mg 00:00: 00:00 [...] :00 (two) l times a day. doxycycline 2021-2- No 100mg Take 100 [facility] [...] a capsule 00 :00 l metroNIDAZO 2021-0 2021- No 500mg Q.5D Take 500 [facility] (FLAGYL) 4-30 06-[address] 500 MG 00:00: 00:00 mouth 2 [facility]ospita tablet 00 :00 (two) l times a day. doxycycline 2021-2021- No 100mg Take 100 [facility] (VIBRAMYCIN 4-30 06-[address] ) 100 MG 00:00: 00:00 mouth. Hospit a capsule 00 :00 l metroNIDAZO 2021-0 2021- No 500mg Q.5D Take 500 [facility] (FLAGYL) 4-30 06-[address] 500 MG 00:00: 00:00 mouth 2 [facility]osp[facility] tablet 00 :00 (two) l times a day. acetaminoph 2021- No [id number] 1{tbl} Q6H Take 1-2 [facility] en-codeine 4-27 [...] 5 days .acute pain. acetamin[place] 2021- [place] [id number] 1{tbl} Q6H Take 1-2 [facility] en-codeine 4-27 05-[address] (TYLENOL 00:00: 04:59 mouth [facility]ospita WITH 00 :00 every 6 l CODEINE #3) (six) 300-30 mg hours as per tablet needed for moderate pain for up to 5 days .acute pain. amoxicillin 2021- No [id number] 500mg Q.5D Take 1 [facility] (AMOXIL) 07-[address] 500 MG 00:00: 04:59 (500 mg Hospita tablet 00 :00 total) by l mouth 2 (two) times a day for 7 days. amoxicillin 2021- No [id number] 500mg Q.5D Take 1 [facility] (AMOXIL) 07-[address] 500 MG 00:00: 04:59 (500 mg Hospita tablet 00 :00 total) by l mouth 2 (two) times a day for 7 days. amoxicillin 2021- No [id number] 500mg Q.5D Take 1 [facility] (AMOXIL) 07-[address] 500 MG 00:00: 04:59 (500 mg Hospita tablet 00 :00 total) by l mouth 2 (two) times a day for 7 days. amoxicillin 2021- No [id number] 500mg Q.5D Take 1 [facility] (AMOXIL) 07-[address] 500 MG 00:00: 04:59 (500 mg Hospita tablet 00 :00 total) by l mouth 2 (two) times a day for 7 days. amoxicillin 2021- No [id number] 500mg Q.5D Take 1 [facility] (AMOXIL) 07-[address] 500 MG 00:00: 04:59 (500 mg [facility]ospita tablet 00 :00 total) by l mouth 2 (two) times a day for 7 days. amoxicillin 2021- No [id number] 500mg Q.5D Take 1 [facility] (AMOXIL) 07-[address] 500 MG 00:00: 04:59 (500 mg [facility]ospita tablet 00 :00 total) by l mouth 2 (two) times a day for 7 days. amoxicillin 2021- No [id number] 500mg Q.5D Take 1 [facility] (AMOXIL) 07-24-[address] 500 MG 00:00: 04:59 (500 mg Hospita tablet 00 :00 total) by l mouth 2 (two) times a day for 7 days. amoxicillin 2021- No [id number] 500mg Q.5D Take 1 [facility] (AMOXIL) 07-24 [...] 2021-2021- No 1{patch Q24H Place 1 [facility] (Nicoderm 4-13 05-14 } patch on st [facility]) 21 00:00: 04:59 the skin Hospit a mg/24 hr 00 :00 daily for l 30 days. nicotine 2021-2021- No 1{patch Q24H Place 1 [facility] (Nicoderm 4-13 05-14 } patch on st [...] 8 (eight) hours for 30 days. ibuprofen 2022-0 2022- No 800mg Q6H Take 1 Meth [...] 8 (eight) hours for 30 days. ibuprofen 2022-0 2022- No 800mg Q6H Take 1 Meth [...] hours for 30 days. amoxicillin 2021- No [id number] 500mg Q.5D Take 1 [facility] (AMOXIL) 06-[address] 500 MG 00:00: 04:59 (500 mg Hospita tablet 00 :00 total) by l mouth in the morning and 1 tablet (500 mg total) before bedtime. Do all this for 7 days. amoxicillin 2021- No [id number] 500mg Q.5D Take 1 [facility] (AMOXIL) 06-[address] 500 MG 00:00: 04:59 (500 mg Hospita tablet 00 :00 total) by l mouth in the morning and 1 tablet (500 mg total) before bedtime. Do all this for 7 days. amoxicillin 2021- No [id number] 500mg Q.5D Take 1 [facility] (AMOXIL) 06-[address] 500 MG 00:00: 04:59 (500 mg Hospita tablet 00 :00 total) by l mouth in the morning and 1 tablet (500 mg total) before bedtime. Do all this for 7 days. amoxicillin 2021- No [id number] 500mg Q.5D Take 1 [facility] (AMOXIL) 06-[address] 500 MG 00:00: 04:59 (500 mg Hospita tablet 00 :00 total) by l mouth in the morning and 1 tablet (500 mg total) before bedtime. Do all this for 7 days. amoxicillin 2021- No [id number] 500mg Q.5D Take 1 [facility] (AMOXIL) 06-[address] 500 MG 00:00: 04:59 (500 mg Hospita tablet 00 :00 total) by l mouth in the morning and 1 tablet (500 mg total) before bedtime. Do all this for 7 days. amoxicillin 2021- No [id number] 500mg Q.5D Take 1 [facility] (AMOXIL) 06-[address] 500 MG 00:00: 04:59 (500 mg Hospita tablet 00 :00 total) by l mouth in the morning and 1 tablet (500 mg total) before bedtime. Do all this for 7 days. amoxicillin 2021- No [id number] 500mg Q.5D Take 1 [facility] (AMOXIL) 06-[address] 500 MG 00:00: 04:59 (500 mg Hospita tablet 00 :00 total) by l mouth in the morning and 1 tablet (500 mg total) before bedtime. Do all this for 7 days. amoxicillin 2021- No [id number] 500mg Q.5D Take 1 [facility] (AMOXIL) 06-18 [...] times a day with meals. naproxen 2-0 2- No 500mg Q.5D Take 1 [facility] (Naprosyn) 06-[address] 500 MG 00:00: 00:00 (500 mg Hospita tablet 00 :00 total) by l mouth 2 (two) times a day with meals. amLODIPine 2022-0 2022- No [facility] ([facility]ASC) 2-05 st 2.5 mg 00:00: 00:00 Hospita tablet 00 :00 l amLODIPine 2022-0 2022- No [facility] ([facility]ASC) 2-05 st 2.5 mg 00:00: 00:00 [facility]ospita tablet 00 :00 l amLODIPine 2022-0 2022- No [facility] ([facility]VASC) 2-06 13-05 st 2.5 mg 00:00: 00:00 [facility]ospita tablet 00 :00 l amLODIPine 2022-0 2022- No [facility] ([facility]) 2-03 04-05 st 2.5 mg 00:00: 00:00 Hospita tablet 00 :00 l amLODIPine 2022-0 2022- No [facility] ([facility]) 2-03 04-05 st 2.5 mg 00:00: 00:00 [facility]ospita tablet 00 :00 l amLODIPine 2022-0 2022- No [facility] ([facility]) 2-03 04-05 st 2.5 mg 00:00: 00:00 [facility]ospita tablet 00 :00 l amLODIPine 2022-0 2022- No [facility] ([facility]) 2- 04-05 st 2.5 mg 00:00: 00:00 [facility]ospita tablet 00 :00 l amLODIPine 2022-0 2022- No [facility] ([facility]) 2- 04-05 st 2.5 mg 00:00: 00:00 Hospita tablet 00 :00 l HYDROcodone 2022-0 2021- No [id number] 1{tbl} Q6H Take 1 [facility] -acetaminop -05-10 tablet by [facility]) 00:00: 05:59 mouth [facility] 5-325 mg 00 :00 every 6 l per tablet (six) hours as needed for moderate pain for up to 5 days .acute pain. Max Daily Amount: 4 tablets HYDROcodone 2-0 2021- No [id number] 1{tbl} Q6H Take 1 [facility] -acetaminop -04 05-29 tablet by [facility]) 00:00: 05:59 mouth [facility] 5-325 mg 00 :00 every 6 l per tablet (six) hours as needed for moderate pain for up to 5 days .acute pain. Max Daily Amount: 4 tablets HYDROcodone 2022-0 202- No [id number] 1{tbl} Q6H Take 1 [facility] -acetaminop 1-23 -29 tablet by [facility]) 00:00: 05:59 mouth [facility] 5-325 mg 00 :00 every 6 l per tablet (six) hours as needed for moderate pain for up to 5 days .acute pain. Max Daily Amount: 4 tablets HYDROcodone 2022-0 2021- No [id number] 1{tbl} Q6H Take 1 [facility] -acetaminop 1-23 01-[address] [facility] ([place]) 00:00: 05:59 mouth [facility] 5-325 mg 00 :00 every 6 l per tablet (six) hours as needed for moderate pain for up to 5 days .acute pain. Max Daily Amount: 4 tablets HYDROcodone 2021- 1{tbl} Q6H Take 1 [facility] -acetaminop 05-[address] [facility] ([place]) 00:00: 05:59 mouth [facility] 5-325 mg 00 :00 every 6 l per tablet (six) hours as needed for moderate pain for up to 5 days .acute pain. Max Daily Amount: 4 tablets HYDROcodone 2021- 1{tbl} Q6H Take 1 [facility] -acetaminop 05-04 tablet by [facility] ([place]) 00:00: 05:59 mouth [facility] 5-325 mg [...] up to 15 days .acute pain. acetaminoph 28 1{tbl} Q6H Take 1-2 [facility] en-codeine 05-[address] (TYLENOL 00:00: 00:00 mouth Hospita WITH 00 :00 every 6 l CODEINE #3) (six) 300-30 mg hours as per tablet needed for moderate pain for up to 15 days .acute pain. acetaminoph 28 1{tbl} Q6H Take 1-2 [facility] en-codeine 05-[address] (TYLENOL 00:00: 00:00 mouth [facility]ospita WITH 00 :00 every 6 l CODEINE #3) (six) 300-30 mg hours as per tablet needed for moderate pain for up to 15 days .acute pain. acetaminoph 28 1{tbl} Q6H Take 1-2 [facility] en-codeine 05-04 [...] times 5 days. All with food. predniSONE 2022-0 2022- No 2 PO [facility] (DELTASONE) 04-[address] 20 mg 00:00: 05:59 followed Hospita tablet 00 :00 by one PO l BID times 5 days. All with food. predniSONE 2021-0 2- No 2 PO [facility] (DELTASONE) 04-[address] 20 mg 00:00: 05:59 followed Hospita tablet 00 :00 by one PO l BID times 5 days. All with food. ibuprofen 2021-0 2022- No 600mg Q6H Take 1 [facility] (ADVIL) 600 - 03-[address] MG tablet 00:00: 00:00 [...] pain for up to 30 doses. acetaminoph 28 1{tbl} Q6H Take 1 [facility] en-codeine 04-12 [...] up to 5 days .acute pain. acetaminoph 28 1{tbl} Q6H Take 1 [facility] en-codeine 04-[address] (TYLENOL 00:00: 05:59 mouth [facility]ospita WITH 00 :00 every 6 l CODEINE #3) (six) 300-30 mg hours as per tablet needed for severe pain for up to 5 days [place] [id number] 50mg Q6H Take 1 [facility] (ULTRAM) 50 04-12 tablet (50 s t mg tablet 00:00: 00:00 mg total) Ho spita 00 :00 by mouth l every 6 (six) hours as needed for moderate pain for up to 5 days .[place] [id number] 50mg Q6H Take 1 [facility] (ULTRAM) 50 04-12 tablet (50 s t mg tablet 00:00: 00:00 mg total) Ho spita 00 :00 by mouth l every 6 (six) hours as needed for moderate pain for up to 5 days .acute pain. traMADoL [id number] 50mg Q6H Take 1 [facility] (ULTRAM) 50 04-12 tablet (50 s t mg tablet 00:00: 00:00 mg total) Ho spita 00 :00 by mouth l every 6 (six) hours as needed for moderate pain for up to 5 days .acute pain. traMADoL [id number] 50mg Q6H Take 1 [facility] (ULTRAM) [...] No 2.5mg QD Take 1 [facility] ([facility]) 04-[address] 2.5 mg 00:00: 00:00 (2.5 mg Hospita tablet 00 :00 total) by l mouth daily. amLODIPine 2020-04 No 2.5mg QD Take 1 [facility] ([facility]) 04-[address] 2.5 mg 00:00: 00:00 (2.5 mg Hospita tablet 00 :00 total) by l mouth daily. amLODIPine 2020-04 No 2.5mg QD Take 1 [facility] ([facility]) 04-[address] 2.5 mg 00:00: 00:00 [...] 1 Maria rris (LIORESAL) 9-24 tablet by [facility] 10 mg 00:00: mouth 2 tablet 00 times daily as needed (muscle spasms) STOP cyclobenza kasia (FLEXERIL) 10 mg tablet. baclofen 2019-0 Yes Neck pain 10mg Take 1 [facility] (LIORESAL) 9-24 tablet by [facility] 10 mg 00:00: mouth 2 tablet 00 times daily as needed (muscle spasms) STOP cyclobenza kasia (FLEXERIL) 10 mg tablet. baclofen 2019-0 Yes Neck pain 10mg Take 1 [facility] (LIORESAL) 9-24 tablet by [facility] 10 mg 00:00: mouth 2 tablet 00 times daily as needed (muscle spasms) STOP cyclobenza kasia (FLEXERIL) 10 mg tablet. baclofen 2020-0 Yes Neck pain 10mg Take 1 [facility] (LIORESAL) 9-24 tablet by [facility] 10 mg 00:00: mouth 2 tablet 00 times daily as needed (muscle spasms) STOP cyclobenza kasia (FLEXERIL) 10 mg tablet. baclofen 2020-0 Yes Neck pain 10mg Take 1 [facility] (LIORESAL) 9-24 tablet by [facility] 10 mg 00:00: mouth 2 tablet 00 times daily as needed (muscle spasms) STOP cyclobenza [facility]asia (FLEXERIL) 10 mg tablet. baclofen 2020-0 Yes Neck pain 10mg Take 1 [facility] (LIORESAL) 9-24 tablet by [facility] 10 mg 00:00: mouth 2 tablet 00 times daily as needed (muscle spasms) STOP cyclobenza [facility]asia (FLEXERIL) 10 mg tablet. baclofen 2020-0 Yes Neck pain 10mg Take 1 [facility] (LIORESAL) 9-24 tablet by [facility] 10 mg 00:00: mouth 2 tablet 00 times daily as needed (muscle spasms) STOP cyclobenza [facility] (FLEXERIL) 10 mg tablet. baclofen 2020-0 Yes Neck pain 10mg Take 1 [facility] (LIORESAL) 9-24 tablet by [facility] 10 mg 00:00: mouth 2 tablet [...] times daily.. varenicline 2020-0 Yes Encounter Start [facility] (CHANTIX) [...] times daily.. varenicline 2020-0 Yes Encounter Start [facility] (CHANTIX) [...] times daily.. varenicline 2020-0 Yes Encounter Start [facility] (CHANTIX) [...] 1 [facility] azole-trime 9-24 tablet by [facility] thoprim 08:09: mouth 2 (BACTRIM 11 times DS) 800-160 daily. mg per tablet MULTIVITAMI 2019-0 Yes Take by Tom [facility] N (DAILY 9-24 mouth. Health VITAMIN OR) 08:09: 11 sulfamethox 2019-0 Yes 1{tbl} Q.5D Take 1 [facility] azole-trime 9-24 tablet by [facility] thoprim 08:09: mouth 2 (BACTRIM 11 times DS) 800-160 daily. mg per tablet MULTIVITAMI 2019-0 Yes Take by Tom [facility] N (DAILY 9-24 mouth. Health VITAMIN OR) 08:09: 11 sulfamethox 2019-0 Yes 1{tbl} Q.5D Take 1 [facility] azole-trime 9-24 tablet by [facility] thoprim 08:09: mouth 2 (BACTRIM 11 times DS) 800-160 daily. mg per tablet MULTIVITAMI 2019-0 Yes Take by [facility] N (DAILY 9-24 mouth. Health VITAMIN OR) 08:09: 11 sulfamethox 2019-0 Yes 1{tbl} Q.5D Take 1 [facility] (BACTRIM 11 times DS) 800-160 daily. mg per tablet MULTIVITAMI 2019-0 Yes Take by [facility] N (DAILY 9-24 mouth. Health VITAMIN OR) 08:09: 11 sulfamethox 2019-0 Yes 1{tbl} Q.5D Take 1 [facility] azole-trime 9-24 tablet by [facility] 08:09: mouth 2 (BACTRIM 11 times DS) 800-160 daily. mg per tablet MULTIVITAMI 2019-0 Yes Take by [facility] N (DAILY 9-24 mouth. Health VITAMIN OR) 08:09: 11 sulfamethox 2019-0 Yes 1{tbl} Q.5D Take 1 [facility] azole-trime 9-24 tablet by [facility] 08:09: mouth 2 (BACTRIM 11 times DS) 800-160 daily. mg per tablet MULTIVITAMI 2019-0 Yes Take by [facility] N (DAILY 9-24 mouth. Health VITAMIN OR) 08:09: 11 sulfamethox 2019-0 Yes 1{tbl} Q.5D Take 1 [facility] azole-trime 9-24 tablet by [facility] 08:09: mouth 2 (BACTRIM 11 times DS) 800-160 daily. mg per tablet MULTIVITAMI 2019-0 Yes Take by [facility] N (DAILY 9-24 mouth. Health VITAMIN OR) 08:09: 11 sulfamethox 2019-0 Yes 1{tbl} Q.5D Take 1 [facility] azole-trime 9-24 tablet by [facility] 08:09: mouth 2 (BACTRIM 11 times DS) [...] 6 hours as needed for Pain. ibuprofen 0 Yes Cervical 400mg Take 2 H arris [...] Date Status Commen ts Source Name Name FLUCDAMIÁNVAX QUAD NIC 2021-02-[address] 00:00:00 [facility] FLUCELVAX QUAD PF 2021-02-[address] 00:00:00 [facility] FLUCELVAX QUAD PF 2021-02-[address] 00:00:00 [facility] FLUCELVAX QUAD 2021-02-[address] 00:00:00 [facility] FLUCELVAX QUAD 2021-02-[address] 00:00:00 [facility] FLUCELVAX QUAD 2021-02-[address] 00:00:00 [facility] FLUCELVAX QUAD 2021-02-[address] 00:00:00 [facility] FLUCELVAX QUAD 2021-02-[address] 00:00:00 [facility] PFIZER COVID-19 MRNA 2020-08-05 Completed [facility] VACCINATION 00:00:00 [facility] PFIZER COVID-19 MRNA 2020-08-05 Completed [facility] VACCINATION 00:00:00 [facility] PFIZER COVID-19 MRNA 2020-08-05 Completed [facility] VACCINATION 00:00:00 [facility] PFIZER COVID-19 MRNA 2020-08-05 Completed [facility] VACCINATION 00:00:00 [facility] PFIZER COVID-19 MRNA 2020-08-05 Completed [facility] VACCINATION 00:00:00 [facility] PFIZER COVID-19 MRNA 2020-08-05 Completed [facility] VACCINATION 00:00:00 [facility] PFIZER COVID-19 MRNA 2020-08-05 Completed [facility] VACCINATION 00:00:00 [facility] PFIZER COVID-19 MRNA 2020-08-05 Completed [facility] VACCINATION 00:00:00 [facility] PFIZER COVID-19 MRNA 2020-07-08 Completed [facility] VACCINATION 00:00:00 [facility] PFIZER COVID-19 MRNA 2020-07-08 Completed [facility] VACCINATION 00:00:00 [facility] PFIZER COVID-19 MRNA 2020-07-08 Completed [facility] VACCINATION 00:00:00 [facility] PFIZER COVID-19 MRNA 2020-07-08 Completed [facility] VACCINATION 00:00:00 [facility] PFIZER COVID-19 MRNA 2020-07-08 Completed [facility] VACCINATION 00:00:00 [facility] PFIZER COVID-19 MRNA 2020-07-08 Completed [facility] VACCINATION 00:00:00 [facility] PFIZER COVID-19 MRNA 2020-07-08 Completed [facility] VACCINATION 00:00:00 [facility] PFIZER COVID-19 MRNA 2020-07-08 Completed [facility] VACCINATION 00:00:00 [facility] Influenza, 2020-03-12 Completed [facility]ine<FLUCELVAX>(M 00:00:00 ulti-Dose) Tdap (Tetanus 2020-03-12 Completed [facility] th Toxoid, Reduced 00:00:00 Diphtheria Toxoid And Acellular Pertussis, Absorbed) Influenza, 2020-03-12 Completed [facility] Vaccine<FLUCELVAX>(M 00:00:00 ulti-Dose) Tdap (Tetanus 2020-03-12 Completed [facility] th Toxoid, Reduced 00:00:00 Diphtheria Toxoid And Acellular Pertussis, Absorbed) Influenza, 2020-03-12 Completed [facility] Vaccine<FLUCELVAX>(M 00:00:00 ulti-Dose) Tdap (Tetanus 2020-03-12 Completed [facility] th Toxoid, Reduced 00:00:00 Diphtheria Toxoid And Acellular Pertussis, Absorbed) Influenza, 2020-03-12 Completed [facility] Vaccine<FLUCELVAX>(M 00:00:00 ulti-Dose) Tdap (Tetanus 2020-03-12 Completed [facility] th Toxoid, Reduced 00:00:00 Diphtheria Toxoid And Acellular Pertussis, Absorbed) Influenza, 2020-03-12 Completed [facility] Vaccine<FLUCELVAX>(M 00:00:00 ulti-Dose) Tdap (Tetanus 2020-03-12 Completed [facility] th Toxoid, Reduced 00:00:00 Diphtheria Toxoid And Acellular Pertussis, Absorbed) Influenza, 2020-03-12 Completed [facility] Vaccine<FLUCELVAX>(M 00:00:00 ulti-Dose) Tdap (Tetanus 2020-03-12 Completed [facility] Toxoid, Reduced 00:00:00 Diphtheria Toxoid And Acellular Pertussis, Absorbed) Influenza, 2020-03-12 Completed [facility] Vaccine<FLUCELVAX>(M 00:00:00 ulti-Dose) Tdap (Tetanus 2020-03-12 Completed [facility] Toxoid, Reduced 00:00:00 Diphtheria Toxoid And Acellular Pertussis, Absorbed) Influenza, 2020-03-12 Completed [facility] Vaccine<FLUCELVAX>(M 00:00:00 ulti-Dose) Tdap (Tetanus 2020-03-12 Completed [facility] Toxoid, Reduced 00:00:00 Diphtheria Toxoid And Acellular Pertussis, Absorbed) Vital Signs Vital Name Observation Time Observation Value Comments Source Systolic blood 2022-02-20 01:13:29 129 mm[Hg] [facility] pressure Diastolic blood 2022-02-20 01:13:29 67 mm[Hg] [facility] pressure Heart rate 2022-02-20 01:13:29 60 /min [facility] Respiratory rate 2022-02-20 01:13:29 18 /min [facility] Oxygen saturation in 2022-02-20 01:13:29 96 /min [facility] Arterial blood by Pulse oximetry Body height 2022-02-19 20:30:00 162.6 cm [facility] Body weight 2022-02-19 20:30:00 79.379 kg [facility] BMI 2022-02-19 20:30:00 30.04 kg/m2 [facility] Body temperature 2022-02-19 20:29:09 36.61 Nydia [facility] pulse rate 2021-12-16 13:21:49 87 /min [facility] blood pressure, 2021-12-16 13:21:49 67 mm[Hg] [facility] diastolic [facility] blood pressure, 2021-12-16 13:21:49 132 mm[Hg] [facility] systolic Health pulse rate 2020-11-25 14:31:56 70 /min [facility] blood pressure, 2020-11-25 14:31:56 74 mm[Hg] Leg[facility] diastolic Health blood pressure, 2020-11-25 14:31:56 113 mm[Hg] [facility] systolic Health pulse rate 2020-11-25 13:39:38 70 /min [facility] blood pressure, 2020-11-25 13:39:38 74 mm[Hg] Leg[facility] diastolic Health blood pressure, 2020-11-25 13:39:38 113 mm[Hg] Legac y [facility] systolic Health Procedures Procedure Date / Time Performing Source Performed Clinician CT CHEST WO CONTRAST ABDOMEN WO 2022-02-20 Cristóbal Ovalle CONTRAST PELVIS WO CONTRAST 01:47:08 [facility] ital ECG ED PRELIMINARY INTERPRETATION 2022-02-20 Cristóbal Ovalle 01:34:30 [facility] CBC WITH PLATELET AND DIFFERENTIAL 2022-02-19 Pa Manningist 21:40:00 [facility] COMPREHENSIVE METABOLIC PANEL 2022-02-19 Alee Manning Vt thodist 21:40:00 [facility] HCG QUALITATIVE, SERUM SCREEN 2022-02-19 Alee Manning Vt thodist 21:40:00 Hospital ESTIMATED GFR 2022-02-19 Alee Manning 21:40:00 [facility] ECG 12-LEAD 2022-02-19 Alee Manning 20:46:22 Hospital URINE CULTURE 2022-02-19 Alee Manning 20:34:00 [facility] URINALYSIS SCREEN AND MICROSCOPY, 2022-02-19 Eulalio Manning WITH REFLEX TO CULTURE 20:34:00 [facility] HEPATITIS B SURFACE ANTIGEN 2022-02-05 Eddie Farris Meth odist 15:30:00 Hospital HEPATITIS C ANTIBODY 2022-02-05 Eddie Farris 15:30:00 [facility] HIV 1/2 ANTIGEN/ANTIBODY, FOURTH 2022-02-05 Eddie Farris GENERATION, WITH REFLEXES 15:30:00 Hospit al HSV TYPE 1/2 COMBINED AB, IGM 2022-02-05 Eddie Farris Vt thodist 15:30:00 Hospital RPR WITH REFLEX TO TITER 2022-02-[address] 15:30:00 Hospital HEPATITIS C VIRUS (HCV), 2022-02-05 Eddie Farris QUANTITATIVE PCR 15:30:00 Hospital SURGICAL PATHOLOGY REQUEST 2021-12-26 Esthela Small Vt thodist 18:06:00 Hospital COLONOSCOPY 2021-12-26 Esthela Small 15:44:00 [facility] ESOPHAGOGASTRODUODENOSCOPY (EGD) 2021-12-26 Esthela Small Mandaen 15:44:00 [facility] COVID-19 QUALITATIVE RT-PCR 2021-12-24 Esthela Small ethodist 12:41:00 [facility] THINPREP TIS AND HPV MRNA E6/E7 2021-12-18 Eddie Farris 18:34:00 [facility] ECG 12-LEAD 2021-11-28 Keith Carroll 15:26:34 [facility] TROPONIN T 2021-11-07 Zeyad Cohen 20:01:00 [facility] COVID19 QUALITATIVE RT-PCR 2021-11-07 Zeyad Cohen 19:09:00 [facility] COVID-19 OMICRON VARIANT 2021-11-[address] QUALITATIVE RT-PCR 19:09:00 [facility] XR CHEST 2 VW 2021-11-07 Zeyad Cohen 18:51:38 [facility] ECG ED PRELIMINARY INTERPRETATION 2021-11-07 Karo Cohen 18:50:27 [facility] COMPREHENSIVE METABOLIC PANEL 2021-11-07 Zeyad Cohen thodist 18:03:00 [facility] TROPONIN T 2021-11-07 Zeyad Cohen 18:03:00 [facility] CBC WITH PLATELET AND DIFFERENTIAL 2021-11-07 Ed Cohen 18:03:00 [facility] HCG QUALITATIVE, SERUM SCREEN 2021-11-07 Zeyad Cohen Vt thodist 18:03:00 [facility] ESTIMATED GFR 2021-11-07 Zeyad Cohen 18:03:00 [facility] ECG 12-LEAD 2021-11-07 OghoghoLiborioist 17:57:16 [facility] FL UGI W OR WO KUB 2021-11-03 Esthela Small 15:16:30 Hospital HEPATITIS C VIRUS (HCV), 2021-11-03 Small, Proctor Hasan Meth odist QUANTITATIVE PCR 13:52:00 Hospital HEPATIC FUNCTION PANEL 2021-11-03 Staci Proctorsilvia Beauchamp Method ist 13:52:00 Hospital XR CHEST 2 VW 2021-10-15 José Rider Mandaen 02:52:42 [facility] COMPREHENSIVE METABOLIC PANEL 2021-10-15 Mario Maher thodist 01:15:00 [facility] TROPONIN T 2021-10-15 Mario Maherist 01:15:00 [facility] B NATRIURETIC PEPTIDE 2021-10-15 Mario Maherist 01:15:00 [facility] CBC WITH PLATELET AND DIFFERENTIAL 2021-10-15 GunnarKassy sandoval 01:15:00 [facility] PROTHROMBIN TIME WITH INR 2021-10-15 Mario Maher ist 01:15:00 [facility] PARTIAL THROMBOPLASTIN TIME (PTT) 2021-10-15 Mario Maher 01:15:00 [facility] ESTIMATED GFR 2021-10-15 Mario Maher 01:15:00 [facility] ECG 12-LEAD 2021-10-15 Mario Maher 00:33:[address] [facility] [address] ANGIOGRAM PE CHEST 2021-10-12 Trung Hudson 17:55:52 [facility] CBC WITH PLATELET AND DIFFERENTIAL 2021-10-12 Trung Hudson 15:36:00 [facility] COMPREHENSIVE METABOLIC PANEL 2021-10-12 Trung Hudson ethodist 15:36:00 Hospital TROPONIN T 2021-10-12 Trung Hudson 15:36:00 Hospital B NATRIURETIC PEPTIDE 2021-10-12 Trung Hudson 15:36:00 Hospital CREATINE KINASE, TOTAL (CPK) 2021-10-12 Trung Hudson thodist 15:36:00 [facility] ESTIMATED GFR 2021-10-12 Trung Hudson 15:36:00 [facility] ECG ED PRELIMINARY INTERPRETATION 2021-10-12 Trung Hudson 15:20:39 [facility] URINE CULTURE 2021-10-12 Rajinder Ordoñez 15:17:00 [facility] URINALYSIS SCREEN AND MICROSCOPY, 2021-10-12 Arslan Ordoñezist WITH REFLEX TO CULTURE 15:17:00 [facility] HCG QUALITATIVE, URINE SCREEN 2021-10-12 Rajinder Ordoñez 15:17:00 [facility] ECG 12-LEAD 2021-10-12 Rajinder Ordoñez 14:48:50 [facility] SC AN ELECTIVE SUPRAGLOTTIC AIRWAY 2021-09-30 Ruddy Marieist 12:10:00 Hospital DECOMPRESSION, ULNAR NERVE 2021-09-30 Rebecca Brownlee 12:06:00 [facility] COVID-19 QUALITATIVE RT-PCR 2021-09-26 Dulce Maria Pierre 14:23:00 [facility] PROTHROMBIN TIME WITH INR 2021-09-26 Antonio Pierre ist 14:23:00 [facility] PARTIAL THROMBOPLASTIN TIME (PTT) 2021-09-26 Keith Pierre 14:23:00 [facility] COMPREHENSIVE METABOLIC PANEL 2021-09-26 Me Gabby thodist 14:23:00 [facility] ESTIMATED GFR 2021-09-26 Rebecca Brownlee 14:23:00 [facility] HEMOGLOBIN A1C 2021-09-26 Rebecca Brownlee 14:23:00 [facility] CBC WITH PLATELET AND DIFFERENTIAL 2021-09-19 Lexie Esparza 07:10:00 [facility] THYROID STIMULATING HORMONE 2021-09-19 Peggy Esparza 07:10:00 [facility] XR ELBOW 3+ VW LEFT 2021-09-10 Rebecca Brownlee 15:28:27 [facility] [address] ANGIOGRAM NECK W WO CONTRAST 2021-08-27 Brenda Retana 00:01:[address] [facility] [address] ANGIOGRAM HEAD W WO CONTRAST 2021-08-27 Brenda Retana 00:00:[address] [facility] [address] HEAD WO CONTRAST 2021-08-26 Brenda Retana 23:42:36 [facility] ECG ED PRELIMINARY INTERPRETATION 2021-08-26 Brenda Retana 23:22:45 [facility] CBC WITH PLATELET AND DIFFERENTIAL 2021-08-26 Willie Retana 21:57:00 [facility] COMPREHENSIVE METABOLIC PANEL 2021-08-26 Brenda Retana Me thodist 21:57:00 [facility] TROPONIN T 2021-08-26 Brenda Retana 21:57:00 [facility] B NATRIURETIC PEPTIDE 2021-08-26 Brenda Retana 21:57:00 [facility] HCG QUALITATIVE, SERUM SCREEN 2021-08-26 Brenda Retana Me thodist 21:57:00 [facility] ESTIMATED GFR 2021-08-26 Brenda Retana 21:57:00 [facility] ECG 12-LEAD 2021-08-26 Brenda Retana 21:42:16 [facility] URINE CULTURE 2021-08-06 Myles Martin 22:27:00 Hospital URINALYSIS SCREEN AND MICROSCOPY, 2021-08-06 Myles Martin Si WITH REFLEX TO CULTURE 22:27:00 [facility] XR CHEST 2 VW 2021-08-06 Myles Martin 20:36:00 [facility] INFLUENZA ANTIGEN 2021-08-06 Susie Melton 20:10:00 [facility][1] RESPIRATORY PATHOGEN PANEL WITH 2021-08-06 Susie Melton COVID-19 RT-PCR 20:10:00 [facility][1] ECG ED PRELIMINARY INTERPRETATION 2021-08-06 Myles Martin Si 20:08:02 [facility] COMPREHENSIVE METABOLIC PANEL 2021-08-06 Susie Melton thodist 20:05:00 [facility][1] CBC WITH PLATELET AND DIFFERENTIAL 2021-08-06 Montserrat Melton 20:05:00 [facility][1] TROPONIN T 2021-08-06 Susie Melton 20:05:00 [facility][1] LIPASE LEVEL 2021-08-06 Susie Melton 20:05:00 [facility][1] ESTIMATED GFR 2021-08-06 Susie Melton 20:05:00 [facility][1] ECG 12-LEAD 2021-08-06 Susie Melton 19:55:29 [facility][1] TROPONIN T 2021-08-01 Brenda Retana 03:32:00 [facility] ECG ED PRELIMINARY INTERPRETATION 2021-08-01 Nelson Villagran i Mandaen 02:37:45 Hospital CBC WITH PLATELET AND DIFFERENTIAL 2021-08-01 Willie Retana Mandaen 00:35:00 [facility] COMPREHENSIVE METABOLIC PANEL 2021-08-01 Brenda Retana thodist 00:35:00 [facility] TROPONIN T 2021-08-01 Brenda Retana Mandaen 00:35:00 [facility] B NATRIURETIC PEPTIDE 2021-08-01 Brenda Retana Mandaen 00:35:00 [facility] ESTIMATED GFR 2021-08-01 Brenda Retana Mandaen 00:35:00 [facility] ECG 12-LEAD 2021-08-01 Brenda Retanaist 00:23:19 [facility] TROPONIN T 2021-07-30 Jaida Sales 21:35:00 Hospital ECG ED PRELIMINARY INTERPRETATION 2021-07-30 Myles Martin Si 19:53:48 Hospital XR CHEST 2 VW 2021-07-30 Myles Martin Mandaen 19:37:56 [facility] COMPREHENSIVE METABOLIC PANEL 2021-07-30 Jaida Sales 18:40:00 Hospital CBC WITH PLATELET AND DIFFERENTIAL 2021-07-30 Jaida Sales 18:40:00 Hospital TROPONIN T 2021-07-30 Jaida Sales 18:40:00 Hospital B NATRIURETIC PEPTIDE 2021-07-[address] 18:40:00 Hospital ESTIMATED GFR 2021-07-30 Jaida Sales 18:40:00 Hospital ECG 12-LEAD 2021-07-30 Jaida Sales 18:33:57 Hospital MAMMO BREAST SCREEN TOMOSYNTHESIS 2021-07-28 Shell Vargas Mandaen BILATERAL 14:20:00 [facility] ECG ED PRELIMINARY INTERPRETATION 2021-07-01 Nelson Villagran i Mandaen 00:04:28 Hospital TROPONIN T 2021-06-30 Mario Maher 23:09:00 [facility] RESPIRATORY PATHOGEN PANEL WITH 2021-06-30 Mario Maher COVID-19 RT-PCR 21:09:00 [facility] XR CHEST 2 VW 2021-06-30 Mario Maher 20:40:51 [facility] COMPREHENSIVE METABOLIC PANEL 2021-06-30 Mario Maher Vt thodist 20:06:00 [facility] TROPONIN T 2021-06-30 Mario Maher 20:06:00 [facility] B NATRIURETIC PEPTIDE 2021-06-30 Mario Maher 20:06:00 [facility] CBC WITH PLATELET AND DIFFERENTIAL 2021-06-30 Kassy Maher 20:06:00 [facility] ESTIMATED GFR 2021-06-30 Mario Maher 20:06:00 [facility] ECG 12-LEAD 2021-06-30 Mario Maher 19:54:19 [facility] POC URINALYSIS DIPSTICK 2021-06-16 Eddie Farris t 18:20:00 [facility] THINPREP TIS PAP AND HPV MRNA 2021-06-16 Eddie Farris Vt thodist E6/E7 REFLEX HPV 16,18/45 18:17:00 Hospit al URINALYSIS, COMPLETE, WITH REFLEX 2021-06-16 Eddie Farris TO CULTURE 17:55:00 Hospital XR SHOULDER 2+ VW RIGHT 2021-06-02 Roger Ling t 17:52:26 [facility] MRI LUMBAR SPINE WO CONTRAST 2021-05-09 Shell Vargas Met hodist 18:44:08 [facility] MRI CERVICAL SPINE WO CONTRAST 2021-05-05 Shell olivia ethodist 14:11:49 [facility] CT LUMBAR SPINE WO CONTRAST 2021-05-04 Liborio Herrera Met hodist 22:36:[address] [facility] [address] THORACIC SPINE WO CONTRAST 2021-05-04 Liborio Herrera ethodist 22:35:58 Hospital TROPONIN T 2021-04-13 Shine Lui 01:33:00 Hospital XR CHEST 2 VW 2021-04-12 Shine Lui 23:31:00 [facility] COMPREHENSIVE METABOLIC PANEL 2021-04-12 Shine Lui Me thodist 22:56:00 Hospital LIPASE LEVEL 2021-04-12 Shine [...] ED PRELIMINARY INTERPRETATION 2021-04-12 Shine Lui 21:47:56 [facility] Plan of Care Planned Activity Planned Date Details Comments Source Future Scheduled 2024-09-11 [facility]:00 malignant neoplasm of cervix (procedure) [code = 918169837] Future Scheduled 2024-09-11 [facility] 00:00:00 malignant neoplasm of cervix (procedure) [code = 817991277] Future Scheduled 2024-09-11 [facility] 00:00:00 malignant neoplasm of cervix (procedure) [code = 336327187] Future Scheduled 2024-09-11 [facility] 00:00:00 malignant neoplasm of cervix (procedure) [code = 280441798] Future Scheduled 2024-09-11 [facility] 00:00:00 malignant neoplasm of cervix (procedure) [code = 547901508] Future Scheduled 2024-09-11 [facility] 00:00:00 malignant neoplasm of cervix (procedure) [code = 800921477] Future Scheduled 2024-09-11 [facility] 00:00:00 malignant neoplasm of cervix (procedure) [code = 142328675] Future Scheduled 2024-09-11 [facility] 00:00:00 malignant neoplasm of cervix (procedure) [code = 991180604] Future Scheduled 2024-09-11 [facility] 00:00:00 malignant neoplasm of cervix (procedure) [code = 023600008] Future Scheduled 2024-09-11 [facility] 00:00:00 malignant neoplasm of cervix (procedure) [code = 821828322] Future Scheduled 2024-09-11 [facility] 00:00:00 malignant neoplasm of cervix (procedure) [code = 374541536] Future Scheduled 2024-09-11 [facility] 00:00:00 malignant neoplasm of cervix (procedure) [code = 488317955] Future Scheduled 2024-09-11 [facility] 00:00:00 malignant neoplasm of cervix (procedure) [code = 568515893] Future Scheduled 2024-09-11 [facility] 00:00:00 malignant neoplasm of cervix (procedure) [code = 725594074] Future Scheduled 2024-09-11 [facility] 00:00:00 malignant neoplasm of cervix (procedure) [code = 797793746] Future Scheduled 2024-09-11 [facility] 00:00:00 malignant neoplasm of cervix (procedure) [code = 969754818] Future Scheduled 2022-06-22 HEPATITIS B VACCINES [facility] Test 14:13:36 (1 of 3 - 3-dose series) [code = HEPATITIS B VACCINES (1 of 3 - 3-dose series)] Future Scheduled 2022-06-22 Pneumococcal Vaccine: [facility] Test 14:13:36 Pediatrics (0 to 5 Years) and At-Risk Patients (6 to 64 Years) (1 - PCV) [code = Pneumococcal Vaccine: Pediatrics (0 to 5 Years) and At-Risk Patients (6 to 64 Years) (1 - PCV)] Future Scheduled 2022-06-22 COLONOSCOPY SCREENING [facility] Test 14:13:36 [code = COLONOSCOPY SCREENING] Future Scheduled 2022-06-22 SHINGLES VACCINES (1 [facility] Test 14:13:36 of 2) [code = SHINGLES VACCINES (1 of 2)] Future Scheduled 2022-06-22 COVID-19 VACCINE (3 - [facility] Test 14:13:36 Booster for Pfizer series) [code = COVID-19 VACCINE (3 - Booster for Pfizer series)] Future Scheduled 2022-06-22 INFLUENZA VACCINE Method [facility] Test 14:13:36 [code = INFLUENZA VACCINE] Future Scheduled 2022-06-22 BREAST CANCER [facility] Test 14:13:36 SCREENING [code = BREAST CANCER SCREENING] Future Scheduled 2022-06-22 Screening for [facility] Test 14:13:36 malignant neoplasm of cervix (procedure) [code = 354927064] Future Scheduled 2022 HEPATITIS B VACCINES [facility] Test 13:45:15 (1 of 3 - 3-dose series) [code = HEPATITIS B VACCINES (1 of 3 - 3-dose series)] Future Scheduled 2022 Pneumococcal Vaccine: [facility] Test 13:45:15 Pediatrics (0 to 5 Years) and At-Risk Patients (6 to 64 Years) (1 - PCV) [code = Pneumococcal Vaccine: Pediatrics (0 to 5 Years) and At-Risk Patients (6 to 64 Years) (1 - PCV)] Future Scheduled 2022 COLONOSCOPY SCREENING [facility] Test 13:45:15 [code = COLONOSCOPY SCREENING] Future Scheduled 2022 SHINGLES VACCINES (1 [facility] Test 13:45:15 of 2) [code = SHINGLES VACCINES (1 of 2)] Future Scheduled 2022 COVID-19 VACCINE (3 - [facility] Test 13:45:15 Booster for Pfizer series) [code = COVID-19 VACCINE (3 - Booster for Pfizer series)] Future Scheduled 2022 INFLUENZA VACCINE Method [facility] Test 13:45:15 [code = INFLUENZA VACCINE] Future Scheduled 2022 BREAST CANCER [facility] Test 13:45:15 SCREENING [code = BREAST CANCER SCREENING] Future Scheduled 2022 Screening for [facility] Test 13:45:15 malignant neoplasm of cervix (procedure) [code = 089124242] Future Scheduled 2022-04-17 HEPATITIS B VACCINES [facility] Test 10:21:02 (1 of 3 - 3-dose series) [code = HEPATITIS B VACCINES (1 of 3 - 3-dose series)] Future Scheduled 2022-04-17 Pneumococcal Vaccine: [facility] Test 10:21:02 Pediatrics (0 to 5 Years) and At-Risk Patients (6 to 64 Years) (1 - PCV) [code = Pneumococcal Vaccine: Pediatrics (0 to 5 Years) and At-Risk Patients (6 to 64 Years) (1 - PCV)] Future Scheduled 2022-04-17 COLONOSCOPY SCREENING [facility] Test 10:21:02 [code = COLONOSCOPY SCREENING] Future Scheduled 2022-04-17 SHINGLES VACCINES (1 [facility] Test 10:21:02 of 2) [code = SHINGLES VACCINES (1 of 2)] Future Scheduled 2022-04-17 COVID-19 VACCINE (3 - [facility] Test 10:21:02 Booster for Pfizer series) [code = COVID-19 VACCINE (3 - Booster for Pfizer series)] Future Scheduled 2022-04-17 INFLUENZA VACCINE Method [facility] Test 10:21:02 [code = INFLUENZA VACCINE] Future Scheduled 2022-04-17 BREAST CANCER [facility] Test 10:21:02 SCREENING [code = BREAST CANCER SCREENING] Future Scheduled 2022-04-17 Screening for [facility] Test 10:21:02 malignant neoplasm of cervix (procedure) [code = 378678339] Future Scheduled 2022-04-15 HEPATITIS B VACCINES [facility] Test 14:24:02 (1 of 3 - 3-dose series) [code = HEPATITIS B VACCINES (1 of 3 - 3-dose series)] Future Scheduled 2022-04-15 Pneumococcal Vaccine: [facility] Test 14:24:02 Pediatrics (0 to 5 Years) and At-Risk Patients (6 to 64 Years) (1 - PCV) [code = Pneumococcal Vaccine: Pediatrics (0 to 5 Years) and At-Risk Patients (6 to 64 Years) (1 - PCV)] Future Scheduled 2022-04-15 COLONOSCOPY SCREENING [facility] Test 14:24:02 [code = COLONOSCOPY SCREENING] Future Scheduled 2022-04-15 SHINGLES VACCINES (1 [facility] Test 14:24:02 of 2) [code = SHINGLES VACCINES (1 of 2)] Future Scheduled 2022-04-15 COVID-19 VACCINE (3 - [facility] Test 14:24:02 Booster for Pfizer series) [code = COVID-19 VACCINE (3 - Booster for Pfizer series)] Future Scheduled 2022-04-15 INFLUENZA VACCINE Method [facility] Test 14:24:02 [code = INFLUENZA VACCINE] Future Scheduled 2022-04-15 BREAST CANCER [facility] Test 14:24:02 SCREENING [code = BREAST CANCER SCREENING] Future Scheduled 2022-04-15 Screening for [facility] Test 14:24:02 malignant neoplasm of cervix (procedure) [code = 975546879] Future Scheduled 2022-04-03 HEPATITIS B VACCINES [facility] Test 09:31:00 (1 of 3 - 3-dose series) [code = HEPATITIS B VACCINES (1 of 3 - 3-dose series)] Future Scheduled 2022-04-03 Pneumococcal Vaccine: [facility] Test 09:31:00 Pediatrics (0 to 5 Years) and At-Risk Patients (6 to 64 Years) (1 - PCV) [code = Pneumococcal Vaccine: Pediatrics (0 to 5 Years) and At-Risk Patients (6 to 64 Years) (1 - PCV)] Future Scheduled 2022-04-03 COLONOSCOPY SCREENING [facility] Test 09:31:00 [code = COLONOSCOPY SCREENING] Future Scheduled 2022-04-03 SHINGLES VACCINES (1 [facility] Test 09:31:00 of 2) [code = SHINGLES VACCINES (1 of 2)] Future Scheduled 2022-04-03 COVID-19 VACCINE (3 - [facility] Test 09:31:00 Booster for Pfizer series) [code = COVID-19 VACCINE (3 - Booster for Pfizer series)] Future Scheduled 2022-04-03 INFLUENZA VACCINE Method [facility] Test 09:31:00 [code = INFLUENZA VACCINE] Future Scheduled 2022-04-03 BREAST CANCER [facility] Test 09:31:00 SCREENING [code = BREAST CANCER SCREENING] Future Scheduled 2022-04-03 Screening for [facility] Test 09:31:00 malignant neoplasm of cervix (procedure) [code = 953699635] Future Scheduled 2022-03-05 HEPATITIS B VACCINES [facility] Test 00:08:56 (1 of 3 - 3-dose series) [code = HEPATITIS B VACCINES (1 of 3 - 3-dose series)] Future Scheduled 2022-03-05 Pneumococcal Vaccine: [facility] Test 00:08:56 Pediatrics (0 to 5 Years) and At-Risk Patients (6 to 64 Years) (1 - PCV) [code = Pneumococcal Vaccine: Pediatrics (0 to 5 Years) and At-Risk Patients (6 to 64 Years) (1 - PCV)] Future Scheduled 2022-03-05 COLONOSCOPY SCREENING [facility] Test 00:08:56 [code = COLONOSCOPY SCREENING] Future Scheduled 2022-03-05 SHINGLES VACCINES (1 [facility] Test 00:08:56 of 2) [code = SHINGLES VACCINES (1 of 2)] Future Scheduled 2022-03-05 COVID-19 VACCINE (3 - [facility] Test 00:08:56 Booster for Pfizer series) [code = COVID-19 VACCINE (3 - Booster for Pfizer series)] Future Scheduled 2022-03-05 INFLUENZA VACCINE Method [facility] Test 00:08:56 [code = INFLUENZA VACCINE] Future Scheduled 2022-03-05 BREAST CANCER [facility] Test 00:08:56 SCREENING [code = BREAST CANCER SCREENING] Future Scheduled 2022-03-05 Screening for [facility] Test 00:08:56 malignant neoplasm of cervix (procedure) [code = 014952556] Future Scheduled 2022-03-05 HEPATITIS B VACCINES [facility] Test 00:08:56 (1 of 3 - 3-dose series) [code = HEPATITIS B VACCINES (1 of 3 - 3-dose series)] Future Scheduled 2022-03-05 Pneumococcal Vaccine: [facility] Test 00:08:56 Pediatrics (0 to 5 Years) and At-Risk Patients (6 to 64 Years) (1 - PCV) [code = Pneumococcal Vaccine: Pediatrics (0 to 5 Years) and At-Risk Patients (6 to 64 Years) (1 - PCV)] Future Scheduled 2022-03-05 COLONOSCOPY SCREENING [facility] Test 00:08:56 [code = COLONOSCOPY SCREENING] Future Scheduled 2022-03-05 SHINGLES VACCINES (1 Met [facility] Test 00:08:56 of 2) [code = SHINGLES VACCINES (1 of 2)] Future Scheduled 2022-03-05 COVID-19 VACCINE (3 - [facility] Test 00:08:56 Booster for Pfizer series) [code = COVID-19 VACCINE (3 - Booster for Pfizer series)] Future Scheduled 2022-03-05 INFLUENZA VACCINE Method [facility] Test 00:08:56 [code = INFLUENZA VACCINE] Future Scheduled 2022-03-05 BREAST CANCER [facility] Test 00:08:56 SCREENING [code = BREAST CANCER SCREENING] Future Scheduled 2022-03-05 Screening for [facility] Test 00:08:56 malignant neoplasm of cervix (procedure) [code = 548228179] Future Scheduled 2022-02-22 HEPATITIS B VACCINES Met [facility] Test 22:17:15 (1 of 3 - 3-dose series) [code = HEPATITIS B VACCINES (1 of 3 - 3-dose series)] Future Scheduled 2022-02-22 Pneumococcal Vaccine: [facility] Test 22:17:15 Pediatrics (0 to 5 Years) and At-Risk Patients (6 to 64 Years) (1 - PCV) [code = Pneumococcal Vaccine: Pediatrics (0 to 5 Years) and At-Risk Patients (6 to 64 Years) (1 - PCV)] Future Scheduled 2022-02-22 COLONOSCOPY SCREENING [facility] Test 22:17:15 [code = COLONOSCOPY SCREENING] Future Scheduled 2022-02-22 SHINGLES VACCINES (1 Met [facility] Test 22:17:15 of 2) [code = SHINGLES VACCINES (1 of 2)] Future Scheduled 2022-02-22 COVID-19 VACCINE (3 - [facility] Test 22:17:15 Booster for Pfizer series) [code = COVID-19 VACCINE (3 - Booster for Pfizer series)] Future Scheduled 2022-02-22 INFLUENZA VACCINE Method [facility] Test 22:17:15 [code = INFLUENZA VACCINE] Future Scheduled 2022-02-22 BREAST CANCER [facility] Test 22:17:15 SCREENING [code = BREAST CANCER SCREENING] Future Scheduled 2022-02-22 Screening for [facility] Test 22:17:15 malignant neoplasm of cervix (procedure) [code = 736535169] Future Scheduled 2022-01-10 IMM Influenza Seasonal H [...] malignant neoplasm of colon (procedure) [code = 542273806] Future Scheduled 2019 [facility] 00:00:00 malignant neoplasm of colon (procedure) [code = 056030700] Future Scheduled 2019 [facility] for [facility] 00:00:00 malignant neoplasm of colon (procedure) [code = 407712472] Future Scheduled 2019 [facility] 00:00:00 malignant neoplasm of colon (procedure) [code = 123923076] Future Scheduled 2019 [facility] 00:00:00 malignant neoplasm of colon (procedure) [code = 668717651] Future Scheduled 2019 [facility] 00:00:00 malignant neoplasm of colon (procedure) [code = 483841144] Future Scheduled 2019 Scre[facility] 00:00:00 malignant neoplasm of colon (procedure) [code = 933040324] Future Scheduled 2019 [facility] 00:00:00 malignant neoplasm of colon (procedure) [code = 543053858] Future Scheduled 1975 Imm Pneumococcal 0-64 Maria [...] Type Clinicians Facility Department ID 2022-04-23 Outpatient [facility] [id number] [place] 15:11:46 [id number] Health 2022-05-15 2022-05-15 Outpatient KELLI ALDANA [id number] 22 Kelli 00:00:00 00:00:00 SHINE ren 2022-02-19 2022-02-19 Emergency Vasquez, 1.2.840.1 [id number] 2099 [id number] Methodi 18:09:00 20:16:[address] [place] 3.430.2.7 Hosp shai .3.898055 l .8 2022-02-19 2022-02-19 Emergency Vasquez, 1.2.840.1 [id number] 2100 736034 Methodi 18:09:00 20:16:[address] [place] 3.430.2.7 Hosp shai .3.006622 l .8 2022-02-12 2022-02-12 Orders Jessica, 1.2.840.1 [id number] 15697 65101 Methodi 00:00:00 00:00:00 Only Maureen 15197.1.[address] 3.430.2.7 Hospit a .3.936322 l .8 2022-02-12 2022-02-12 Orders Jessica, 1.2.840.1 [id number] 21001 65125 Methodi 00:00:00 00:00:00 Only Maureen 78672.1.[address] 3.430.2.7 Hospit a .3.101334 l .8 2022-02-11 2022-02-11 Orders Lopez, 1.2.840.1 [id number] 21001 18884 Methodi 00:00:00 00:00:00 Only Maureen 50298.1.[address] 3.430.2.7 Hospit a .3.242182 l .8 2022-02-11 2022-02-11 Telephone Prasanth, 1.2.840.1 [id number] Methodi 00:00:00 00:00:00 Eddie Franco 91313.1.[address] 3.430.2.7 Hospit a .3.561193 l .8 2022-02-11 2022-02-11 Orders Jessica, 1.2.840.1 [id number] 21001 00843 Methodi 00:00:00 00:00:00 Only Maureen 93854.1.[address] 3.430.2.7 Hospit a .3.937848 l .8 2022-02-11 2022-02-11 Telephone Prasanth, 1.2.840.1 [id number] Methodi 00:00:00 00:00:[address] Eddie Franco [address]125.1.[address] 3.430.2.7 Hospit a .3.486194 l .8 2022-02-09 2022-02-09 Outpatient [facility] PDPFCCG ETQ COH 00:00:00 00:00:00 [id number] 2022-02-09 2022-02-09 Telephone Prasanth, 1.2.840.1 [id number] 2100 633024 Methodi 00:00:00 00:00:00 Eddie Franco 94234.1.[address] 3.430.2.7 Hospit a .3.535269 l .8 2022-02-09 2022-02-09 Telephone Prasanth, 1.2.840.1 [id number] 2100 831326 Methodi 00:00:00 00:00:00 Eddie Franco 72637.1.[address] 3.430.2.7 Hospit a .3.921941 l .8 2022-02-05 2022-02-05 Lab Prasanth, 1.2.840.1 [id number] 879601 5650 Methodi 10:50:00 10:55:00 Eddie Franco 43663.1.[address] 3.430.2.7 Hospit a .3.025035 l .8 2022-02-05 2022-02-05 Lab Prasanth, 1.2.840.1 [id number] 148974 0461 Methodi 10:50:00 10:55:00 Eddie Franco 76360.1.[address] 3.430.2.7 Hospit a .3.265375 l .8 2022-02-05 2022-02-05 Office Prasanth, 1.2.840.1 [id number] 968111 3371 Methodi 09:40:00 10:31:06 Visit Eddie Franco 94882.1.[address] 3.430.2.7 Hospit a .3.304518 l .8 2022-02-05 2022-02-05 Office Prasanth, 1.2.840.1 [id number] 129247 6434 Methodi 09:40:00 10:31:06 Visit Eddie Franco 94922.1.[address] 3.430.2.7 Hospit a .3.803833 l .8 2022-02-05 2022-02-05 Travel 1.2.840.1 1.2.428.813 4714 156980 Methodi 00:00:00 00:00:[address] 3.430.2.7 0.2.7.3.698 Ho spita .3.662164 084.8 l .8 2022-02-05 2022-02-05 Refill Alicia, 1.2.840.1 [id number] 435581 6489 Methodi 00:00:00 00:00:[address] [place] 3.430.2.7 Hospi ta .3.304060 l .8 2022-02-05 2022-02-05 Refill Alicia, 1.2.840.1 [id number] 173309 7496 Methodi 00:00:00 00:00:[address] [place] 3.430.2.7 Hospi ta .3.635547 l .8 2022-02-05 2022-02-05 Travel 1.2.840.1 1.2.366.109 7537 781287 Methodi 00:00:00 00:00:[address] 3.430.2.7 0.2.7.3.698 Ho spita .3.963747 084.8 l .8 2022-02-03 2022-02-03 Telephone Prasanth, 1.2.840.1 [id number] 2099 087983 Methodi 00:00:00 00:00:00 Eddie Franco 22504.1.[address] 3.430.2.7 Hospit a .3.899856 l .8 2022-02-03 2022-02-03 Telephone Prasanth, 1.2.840.1 [id number] 2099 246364 Methodi 00:00:00 00:00:[address] Franco [address].1.[address] 3.430.2.7 Hospit a .3.115640 l .8 2022-01-01 2022-01-01 Telephone Mccallum, 1.2.840.1 [id number] 2099 887281 Methodi 00:00:00 00:00:[address] 3.430.2.7 Hospit a .3.048790 l .8 2022-01-01 2022-01-01 Telephone Mccallum, 1.2.840.1 [id number] 2100 519740 Methodi 00:00:00 00:00:[address] 3.430.2.7 Hospit a .3.192119 l .8 2021-12-26 2021-12-26 Surgery [facility], 1.2.840.1 [id number] 780149 8027 Methodi 11:00:00 11:45:[address] Hasan 3.430.2.7 Hospit a .3.630051 l .8 2021-12-26 2021-12-26 [facility], 1.2.840.1 [id number] 284772 3847 Methodi 11:00:00 11:45:[address] Hasan 3.430.2.7 Hospit a .3.576837 l .8 2021-12-26 2021-12-26 [facility], 1.2.840.1 [id number] 39989 91314 Methodi 10:21:00 11:28:00 Encounter Proctor 82122.1.[address] Hasan 3.430.2.7 Hospit a .3.855901 l .8 2021-12-26 2021-12-26 [facility], 1.2.840.1 [id number] 91866 70089 Methodi 10:21:00 11:28:00 Encounter Proctor 86660.1.[address] Hasan 3.430.2.7 Hospit a .3.133104 l .8 2021-12-26 2021-12-26 Anesthesia PennieHans mendez 1.2.840.1 [id number] Methodi 10:44:00 11:06:[address] Event Edward [address]108.1.[address] 3.430.2.7 Hospit a .3.885243 l .8 2021-12-26 2021-12-26 Anesthesia PennieHans acharya 1.2.840.1 [id number] Methodi 10:44:00 11:06:[address] Event Edward 40288.1.[address] 3.430.2.7 Hospit a .3.788536 l .8 2021-12-26 2021-12-26 Travel 1.2.840.1 1.2.732.414 2158 725450 Methodi 00:00:00 00:00:[address] 3.430.2.7 0.2.7.3.698 Ho spita .3.785920 084.8 l .8 2021-12-26 2021-12-26 Travel 1.2.840.1 1.2.075.360 3847 649806 Methodi 00:00:00 00:00:[address] 3.430.2.7 0.2.7.3.698 Ho spita .3.212520 084.8 l .8 2021-12-24 2021-12-24 Lab Small, 1.2.840.1 [id number] 643321 6054 Methodi 08:00:00 08:15:[address] Hasan 3.430.2.7 Hospit a .3.652455 l .8 2021-12-24 2021-12-24 Lab Small, 1.2.840.1 707302548 972065 3383 Methodi 08:00:00 08:15:[address] Hasan 3.430.2.7 Hospit a .3.557090 l .8 2021-12-24 2021-12-24 Orders Tran, 1.2.840.1 737480227 980487 0496 Methodi 00:00:00 00:00:00 Only Kortney 13068.1.[address] 3.430.2.7 Hospit a .3.160224 l .8 2021-12-24 2021-12-24 Orders Tran, 1.2.840.1 614494602 839500 2324 Methodi 00:00:00 00:00:00 Only Kortney 54858.1.[address] 3.430.2.7 Hospit a .3.644705 l .8 2021-12-18 2021-12-18 Jacquelyn Farris, 1.2.840.1 071316506 048755 5792 Methodi 11:00:00 13:02:01 Visit Eddie Franco 59397.1.[address] 3.430.2.7 Hospit a .3.811888 l .8 2021-12-18 2021-12-18 Office Prasanth, 1.2.840.1 [id number] 117980 9564 Methodi 11:00:00 13:02:01 Visit Eddie Franco 83619.1.[address] 3.430.2.7 Hospit a .3.995601 l .8 2021-12-18 2021-12-18 Travel 1.2.840.1 1.2.476.415 5864 868313 Methodi 00:00:00 00:00:[address] 3.430.2.7 0.2.7.3.698 Ho spita .3.155697 084.8 l .8 2021-12-18 2021-12-18 Travel 1.2.840.1 1.2.520.048 8291 119882 Methodi 00:00:00 00:00:[address] 3.430.2.7 0.2.7.3.698 Ho spita .3.769591 084.8 l .8 2021-12-16 2021-12-16 Office Doug Estevez [facility] Encounter/ Legacy 00:00:00 00:00:00 Visit Bijan Carson [id number] [facility] [id number] [facility] 2021-12-09 2021-12-09 Refill Leggett, 1.2.840.1 [id number] 2099385 Methodi 00:00:00 00:00:[address] 3.430.2.7 Hospit a .3.186041 l .8 2021-12-09 2021-12-09 Refill Leggett, 1.2.840.1 [id number] 2099385 Methodi 00:00:00 00:00:[address] 3.430.2.7 Hospit a .3.474213 l .8 2021-11-282021-11-28 Office Carly, 1.2.840.1 [id number] 547 6957296 Methodi 10:15:00 10:52:48 Visit Pimprapa 03267.1.[address] 3.430.2.7 Hospit a .3.965254 l .8 2021-11-28 2021-11-28 Office Carly, 1.2.840.1 [id number] 705 7392811 Methodi 10:15:00 10:52:48 Visit Pimprapa 66095.1.[address] 3.430.2.7 Hospit a .3.661620 l .8 2021-11-28 2021-11-28 Travel 1.2.840.1 1.2.755.468 6480 974081 Methodi 00:00:00 00:00:[address] 3.430.2.7 0.2.7.3.698 Ho spita .3.600175 084.8 l .8 2021-11-28 2021-11-28 Travel 1.2.840.1 1.2.679.510 2531 709580 Methodi 00:00:00 00:00:[address] 3.430.2.7 0.2.7.3.698 Ho spita .3.673321 084.8 l .8 2021-11-17 2021-11-17 Office Fabby, 1.2.840.1 [id number] 652975 1099 Methodi 09:00:00 09:30:00 Visit Junaa 21748.1.[address] Kelley 3.430.2.7 Hospit a .3.573588 l .8 2021-11-17 2021-11-17 Office Fabby, 1.2.840.1 [id number] 892623 0602 Methodi 09:00:00 09:30:00 Visit Juana 24893.1.[address] Kelley 3.430.2.7 Hospit a .3.920540 l .8 2021-11-172021-11-17 Travel 1.2.840.1 1.2.780.676 8972 235844 Methodi 00:00:00 00:00:[address] 3.430.2.7 0.2.7.3.698 Ho spita .3.336993 084.8 l .8 2021-11-17 2021-11-17 Travel 1.2.840.1 1.2.673.631 0454 094904 Methodi 00:00:00 00:00:[address] 3.430.2.7 0.2.7.3.698 Ho spita .3.425626 084.8 l .8 2021-11-14 2021-11-14 Orders Istre, 1.2.840.1 590409490 988631 2780 Methodi 00:00:00 00:00:00 Only Shell 31992.1.[address] Doe 3.430.2.7 Hospi ta .3.306880 l .8 2021-11-14 2021-11-14 Orders Istre, 1.2.840.1 602698572 740238 9122 Methodi 00:00:00 00:00:00 Only Shell 32993.1.[address] Doe 3.430.2.7 Hospi ta .3.505271 l .8 2021-11-11 2021-11-11 Telemedici Istre, 1.2.840.1 [id number] 300 6867483 Methodi 10:00:00 10:40:34 ne Shell 64220.1.[address] [place] 3.430.2.7 Hospi ta .3.803890 l .8 2021-11-11 2021-11-11 Telemedici Istre, 1.2.840.1 692345203 378 7914986 Methodi 10:00:00 10:40:34 ne Shell 34308.1.[address] [place] 3.430.2.7 Hospi ta .3.695120 l .8 2021-11-07 2021-11-07 Emergency Noel, 1.2.840.1 350827125 2099 767857 Methodi 14:04:00 15:46:[address] Kirsten 3.430.2.7 Hospit a .3.127646 l .8 2021-11-07 2021-11-07 Emergency Noel, 1.2.840.1 568027904 2099 740761 Methodi 14:04:00 15:46:[address] Kirsten 3.430.2.7 Hospit a .3.269193 l .8 2021-11-07 2021-11-07 Travel 1.2.840.1 1.2.682.029 7925 268508 Methodi 00:00:00 00:00:[address] 3.430.2.7 0.2.7.3.698 Ho spita .3.867616 084.8 l .8 2021-11-07 2021-11-07 Travel 1.2.840.1 1.2.196.746 5746 277305 Methodi 00:00:00 00:00:[address] 3.430.2.7 0.2.7.3.698 Ho spita .3.769854 084.8 l .8 2021-11-03 2021-11-03 Lab Staci, 1.2.840.1 891340600 472695 7780 Methodi 08:25:00 08:30:[address] Hasan 3.430.2.7 Hospit a .3.136273 l .8 2021-11-03 2021-11-03 Lab Staci, 1.2.840.1 374850546 639149 4127 Methodi 08:25:00 08:30:[address] Hasan 3.430.2.7 Hospit a .3.920868 l .8 2021-11-03 2021-11-03 Telephone Alessio, 1.2.840.1 710190915 2099 352562 Methodi 00:00:00 00:00:[address] 3.430.2.7 Hospit a .3.706176 l .8 2021-11-03 2021-11-03 Travel 1.2.840.1 1.2.109.274 9822 619662 Methodi 00:00:00 00:00:[address] 3.430.2.7 0.2.7.3.698 Ho spita .3.685974 084.8 l .8 2021-11-03 2021-11-03 [id number] 623 [place] 00:00:00 00:00:00 PROCTOR [address] 2021-11-03 2021-11-03 Telephone Alessio, 1.2.840.1 [id number] 2100 483202 Methodi 00:00:00 00:00:[address] 3.430.2.7 Hospit a .3.435416 l .8 2021-11-03 2021-11-03 Travel 1.2.840.1 1.2.895.082 0988 598851 Methodi 00:00:00 00:00:[address] 3.430.2.7 0.2.7.3.698 Ho spita .3.547998 084.8 l .8 2021-10-29 2021-10-29 Documentat Binta, 1.2.840.1 [id number] 2 140874989 Methodi 00:00:00 00:00:00 ion Amanda 37354.1.[address] 3.430.2.7 Hospit a .3.575426 l .8 2021-10-29 2021-10-29 Prep for Judd, 1.2.840.1 251408313 384 1499052 Methodi 00:00:00 00:00:00 Surgery Amanda 88064.1.[address] 3.430.2.7 Hospit a .3.122337 l .8 2021-10-29 2021-10-29 Telephone Binta, 1.2.840.1 [id number] 21 18070582 Methodi 00:00:00 00:00:[address] 3.430.2.7 Hospit a .3.735869 l .8 2021-10-29 2021-10-29 Travel 1.2.840.1 1.2.332.469 6188 623656 Methodi 00:00:00 00:00:[address] 3.430.2.7 0.2.7.3.698 Ho spita .3.286529 084.8 l .8 2021-10-29 2021-10-29 Documentat Binta, 1.2.840.1 [id number] 2 298371178 Methodi 00:00:00 00:00:00 ion Amanda 41315.1.[address] 3.430.2.7 Hospit a .3.553462 l .8 2021-10-29 2021-10-29 Prep for Binta, 1.2.840.1 731178096 766 7411371 Methodi 00:00:00 00:00:00 Surgery Amanda 38832.1.[address] 3.430.2.7 Hospit a .3.004468 l .8 2021-10-29 2021-10-29 Telephone Binta, 1.2.840.1 [id number] 21 08684257 Methodi 00:00:00 00:00:[address] 3.430.2.7 Hospit a .3.943280 l .8 2021-10-29 2021-10-29 Travel 1.2.840.1 1.2.493.798 8282 207731 Methodi 00:00:00 00:00:[address] 3.430.2.7 0.2.7.3.698 Ho spita .3.791730 084.8 l .8 2021-10-22 2021-10-22 Office Kem, 1.2.840.1 324182082 017 2455098 Methodi 09:40:00 10:17:00 Visit Rebecca Nguyen 75053.1.[address] 3.430.2.7 Hospit a .3.165126 l .8 2021-10-22 2021-10-22 Office Kem, 1.2.840.1 096930693 968 8904204 Methodi 09:40:00 10:17:00 Visit Rebecca Nguyen 80547.1.[address] 3.430.2.7 Hospit a .3.136790 l .8 2021-10-22 2021-10-22 Travel 1.2.840.1 1.2.691.489 2356 385313 Methodi 00:00:00 00:00:[address] 3.430.2.7 0.2.7.3.698 Ho spita .3.242545 084.8 l .8 2021-10-22 2021-10-22 Travel 1.2.840.1 1.2.952.379 4250 764381 Methodi 00:00:00 00:00:[address] 3.430.2.7 0.2.7.3.698 Ho spita .3.041510 084.8 l .8 2021-10-14 2021-10-15 Emergency Adry, 1.2.840.1 910134160 862 3965391 Methodi 21:57:00 00:06:00 José H [address]1990.1.[address] 3.430.2.7 Hospit a .3.195632 l .8 2021-10-14 2021-10-15 Emergency Adry, 1.2.840.1 242096569 444 3724548 Methodi 21:57:00 00:06:00 José H 19847.1.[address] 3.430.2.7 Hospit a .3.843759 l .8 2021-10-12 2021-10-12 Emergency Hudson, 1.2.840.1 [id number] 2099 031656 Methodi 10:13:00 14:37:00 Trung LazcanoChantal [address]74.1.[address] 3.430.2.7 Hospit a .3.475737 l .8 2021-10-12 2021-10-12 Emergency Hudson, 1.2.840.1 [id number] 2099 823138 Methodi 10:13:00 14:37:00 Trung H[place] [address]231.1.[address] 3.430.2.7 Hospit a .3.176155 l .8 2021-10-09 2021-10-09 Telephone [facility] 1.2.840.1 [id number] Methodi 00:00:00 00:00:[address] 3.430.2.7 Hospit a .3.151053 l .8 2021-10-09 2021-10-09 Telephone [facility] 1.2.840.1 [id number] Methodi 00:00:00 00:00:[address] 3.430.2.7 Hospit a .3.847749 l .8 2021-10-09 2021-10-09 Orders Istre, 1.2.840.1 573324109 088600 9271 Methodi 00:00:00 00:00:00 Only Shell 72556.1.[address] Doe 3.430.2.7 Hospi ta .3.736456 l .8 2021-10-09 2021-10-09 Telephone [facility] 1.2.840.1 [id number] Methodi 00:00:00 00:00:[address] 3.430.2.7 Hospit a .3.542759 l .8 2021-10-09 2021-10-09 Telephone Tita [facility] 1.2.840.1 [id number] Methodi 00:00:00 00:00:[address] 3.430.2.7 Hospit a .3.079374 l .8 2021-10-09 2021-10-09 Orders Iscorwin, 1.2.840.1 023598446 625928 1657 Methodi 00:00:00 00:00:00 Only Shell 87538.1.[address] Doe 3.430.2.7 Hospi ta .3.135879 l .8 2021-10-02 2021-10-02 Telephone Amrussel, 1.2.840.1 082601484 653 2695220 Methodi 00:00:00 00:00:[address] 3.430.2.7 Hospit a .3.349213 l .8 2021-10-02 2021-10-02 Telephone Amrussel, 1.2.840.1 638754115 677 [id number] Methodi 00:00:00 00:00:[address] 3.430.2.7 Hospit a .3.448596 l .8 2021-09-30 2021-09-30 Surgery [place], 1.2.840.1 252230182 227 9132870 Methodi 07:15:00 09:02:00 Rebecca Nguyen 73656.1.[address] 3.430.2.7 Hospit a .3.230325 l .8 2021-09-30 2021-09-30 [facility], 1.2.840.1 [id number] 737 5700082 Methodi 07:15:00 09:02:00 Rebecca Nguyen 45749.1.[address] 3.430.2.7 Hospit a .3.761820 l .8 2021-09-30 2021-09-30 [facility], 1.2.840.1 [id number] 21 [id number] Methodi 06:02:00 08:50:00 Denita Nguyen 88491.1.[address] 3.430.2.7 Hospit a .3.149715 l .8 2021-09-30 2021-09-30 [facility], 1.2.840.1 [id number] 21 [id number] Methodi 06:02:00 08:50:00 Encounter Rebecca Nguyen 06107.1.[address] 3.430.2.7 Hospit a .3.707111 l .8 2021-09-30 2021-09-30 Anesthesia Tomas Mattson W. 1.2.840.1 1045 49815 [id number] Methodi 07:05:00 08:04:00 Event Sunita Marie 82270.1.[address] 3.430.2.7 Hospit a .3.417727 l .8 2021-09-30 2021-09-30 Anesthesia Tomas Mattson W. 1.2.840.1 1045 48276 [id number] Methodi 07:05:00 08:04:00 Event Sunita Marie 85995.1.[address] 3.430.2.7 Hospit a .3.386661 l .8 2021-09-26 2021-09-[address] [facility] 2100 196590 [place] 00:00:00 00:00:00 REBECCA Baumann Method i st 2021-09-19 2021-09-19 Travel 1.2.840.1 1.2.797.709 7404 086432 Methodi 00:00:00 00:00:[address] 3.430.2.7 0.2.7.3.698 spita .3.304061 084.8 l .8 2021-09-19 2021-09-19 Orders Janes, 1.2.840.1 [id number] 2099 [id number] Methodi 00:00:00 00:00:00 Only Sharon 19993.1.[address] 3.430.2.7 Hospit a .3.043259 l .8 2021-09-19 2021-09-19 Orders Tavares, 1.2.840.1 [id number] 235617 0248 Methodi 00:00:00 00:00:00 Only Peggy 38555.1.[address] 3.430.2.7 Hospit a .3.591051 l .8 2021-09-19 2021-09-19 Travel 1.2.840.1 1.2.190.817 7395 171784 Methodi 00:00:00 00:00:[address] 3.430.2.7 0.2.7.3.698 Ho spita .3.657880 084.8 l .8 2021-09-19 2021-09-19 Orders Marrero, 1.2.840.1 [id number] 2099 413416 Methodi 00:00:00 00:00:00 Only Sharon 12971.1.[address] 3.430.2.7 Hospit a .3.679241 l .8 2021-09-19 2021-09-19 Orders Tavares, 1.2.840.1 [id number] 723956 2357 Methodi 00:00:00 00:00:00 Only Peggy 17859.1.[address] 3.430.2.7 Hospit a .3.438505 l .8 2021-09-18 2021-09-18 Orders Propes, 1.2.840.1 704708215 656836 5354 Methodi 00:00:00 00:00:00 Only Pina 55833.1.[address] 3.430.2.7 Hospit a .3.603196 l .8 2021-09-18 2021-09-18 Orders Propes, 1.2.840.1 308510260 451108 8881 Methodi 00:00:00 00:00:00 Only Pina 38326.1.[address] 3.430.2.7 Hospit a .3.355462 l .8 2021-09-14 2021-09-14 Orders Tavares, 1.2.840.1 682456881 036263 3110 Methodi 00:00:00 00:00:00 Only Peggy 71731.1.[address] 3.430.2.7 Hospit a .3.732325 l .8 2021-09-14 2021-09-14 Orders Tavares, 1.2.840.1 224879669 107597 2973 Methodi 00:00:00 00:00:00 Only Peggy 88308.1.[address] 3.430.2.7 Hospit a .3.841477 l .8 2021-09-11 2021-09-11 Office Tavares, 1.2.840.1 261964162 762103 7370 Methodi 15:50:00 16:55:49 Visit Peggy 98900.1.[address] 3.430.2.7 Hospit a .3.215765 l .8 2021-09-11 2021-09-11 Office [place]ava[place], 1.2.840.1 [id number] 752757 6465 Methodi 15:50:00 16:55:49 Visit Peggy 46414.1.[address] 3.430.2.7 Hospit a .3.643375 l .8 2021-09-11 2021-09-11 Travel 1.2.840.1 1.2.302.629 8323 284663 Methodi 00:00:00 00:00:[address] 3.430.2.7 0.2.7.3.698 Ho spita .3.948659 084.8 l .8 2021-09-11 2021-09-11 Travel 1.2.840.1 1.2.047.195 7292 457410 Methodi 00:00:00 00:00:[address] 3.430.2.7 0.2.7.3.698 Ho spita .3.721062 084.8 l .8 2021-09-10 2021-09-10 Office Kem, 1.2.840.1 [id number] 069 [id number] Methodi 10:40:00 11:03:05 Visit Rebecca Nguyen 51792.1.[address] 3.430.2.7 Hospit a .3.515838 l .8 2021-09-10 2021-09-10 Office Kem, 1.2.840.1 716908667 521 [id number] Methodi 10:40:00 11:03:05 Visit Rebecca Nguyen 32252.1.[address] 3.430.2.7 Hospit a .3.215440 l .8 2021-09-10 2021-09-10 Orders Edmundo, 1.2.840.1 [id number] 2099 486038 Methodi 00:00:00 00:00:00 Only Jami 48105.1.[address] 3.430.2.7 Hospit a .3.875877 l .8 2021-09-10 2021-09-10 Orders Edmundo, 1.2.840.1 [id number] 2099333 Methodi 00:00:00 00:00:00 Only Jami 31334.1.[address] 3.430.2.7 Hospit a .3.143627 l .8 2021-09-10 2021-09-[address] [facility] 2100 [id number] [place] 00:00:00 00:00:00 REBECCA [address] 2021-08-31 2021-08-31 Refill Istre, 1.2.840.1 [id number] 024139 5801 Methodi 00:00:00 00:00:[address] Doe 3.430.2.7 Hospi ta .3.545784 l .8 2021-08-31 2021-08-31 Refill Prasanth, 1.2.840.1 [id number] 029109 2627 Methodi 00:00:00 00:00:00 Eddie Franco 10940.1.[address] 3.430.2.7 Hospit a .3.686132 l .8 2021-08-31 2021-08-31 Refill Istre, 1.2.840.1 963514268 216733 7376 Methodi 00:00:00 00:00:[address] Doe 3.430.2.7 Hospi ta .3.951770 l .8 2021-08-31 2021-08-31 Refill Prasanth, 1.2.840.1 954895607 592819 2659 Methodi 00:00:00 00:00:00 Eddie Franco 23080.1.[address] 3.430.2.7 Hospit a .3.291766 l .8 2021-08-29 2021-08-29 Telephone Denisse, 1.2.840.1 [id number] Methodi 00:00:00 00:00:00 Howe Ray 39642.1.[address] 3.430.2.7 Hospit a .3.168062 l .8 2021-08-29 2021-08-29 Orders Istre, 1.2.840.1 934822123 748243 2024 Methodi 00:00:00 00:00:00 Only Shell 10959.1.[address] Doe 3.430.2.7 Hospi ta .3.989526 l .8 2021-08-29 2021-08-29 Telephone Denisse, 1.2.840.1 [id number] 2099 673032 Methodi 00:00:00 00:00:00 Ivy Ray 63151.1.[address] 3.430.2.7 Hospit a .3.679537 l .8 2021-08-29 2021-08-29 Orders Istre, 1.2.840.1 319606442 882403 2679 Methodi 00:00:00 00:00:00 Only Shell 35526.1.[address] Doe 3.430.2.7 Hospi ta .3.951046 l .8 2021-08-28 2021-08-28 Travel 1.2.840.1 1.2.536.071 3653 870416 Methodi 00:00:00 00:00:[address] 3.430.2.7 0.2.7.3.698 Ho spita .3.044219 084.8 l .8 2021-08-28 2021-08-28 Travel 1.2.840.1 1.2.310.692 6303 924716 Methodi 00:00:00 00:00:[address] 3.430.2.7 0.2.7.3.698 Ho spita .3.441388 084.8 l .8 2021-08-26 2021-08-26 Emergency Mazin, 1.2.840.1 [id number] 2099 268681 Methodi 16:36:00 20:08:[address] Adrienne 3.430.2.7 Hospit a .3.749051 l .8 2021-08-26 2021-08-26 Emergency Mazin, 1.2.840.1 530615984 2099370 Methodi 16:36:00 20:08:[address] Adrienne 3.430.2.7 Hospit a .3.431472 l .8 2021-08-26 2021-08-26 Orders Colmenter, 1.2.840.1 671130913 286 7616179 Methodi 00:00:00 00:00:00 Only Linda 79915.1.[address] 3.430.2.7 Hospit a .3.477755 l .8 2021-08-26 2021-08-26 Orders Colmenter, 1.2.840.1 551126809 643 [id number] Methodi 00:00:00 00:00:00 Only Linda 34830.1.[address] 3.430.2.7 Hospit a .3.701272 l .8 2021-08-21 2021-08-21 Orders Colmenter, 1.2.840.1 016596406 372 0705069 Methodi 00:00:00 00:00:00 Only Linda 07713.1.[address] 3.430.2.7 Hospit a .3.646921 l .8 2021-08-21 2021-08-21 Orders Colmenter, 1.2.840.1 994961722 175 1976932 Methodi 00:00:00 00:00:00 Only Linda 77572.1.[address] 3.430.2.7 Hospit a .3.891463 l .8 2021-08-14 2021-08-14 Office Colmenter, 1.2.840.1 311030467 412 1314730 Methodi 11:00:00 13:05:34 Visit Linda 52002.1.[address] 3.430.2.7 Hospit a .3.596804 l .8 2021-08-14 2021-08-14 Office Colmenter, 1.2.840.1 451960138 207 4372576 Methodi 11:00:00 13:05:34 Visit Linda 98558.1.[address] 3.430.2.7 Hospit a .3.625727 l .8 2021-08-12 2021-08-12 Office Prasanth, 1.2.840.1 994551189 497407 3498 Methodi 10:00:00 11:08:57 Visit Eddei Franco 08182.1.[address] 3.430.2.7 Hospit a .3.038976 l .8 2021-08-12 2021-08-12 Office Prasanth, 1.2.840.1 047057009 970570 8770 Methodi 10:00:00 11:08:57 Visit Eddie Franco 24777.1.[address] 3.430.2.7 Hospit a .3.068574 l .8 2021-08-12 2021-08-12 Travel 1.2.840.1 1.2.301.820 9382 193438 Methodi 00:00:00 00:00:[address] 3.430.2.7 0.2.7.3.698 Ho spita .3.077991 084.8 l .8 2021-08-12 2021-08-12 Travel 1.2.840.1 1.2.599.457 9359 151858 Methodi 00:00:00 00:00:[address] 3.430.2.7 0.2.7.3.698 Ho spita .3.967896 084.8 l .8 2021-08-08 2021-08-08 Emergency EM DANIEL Howell [id number] [facility] 12:48:00 19:41:00 Di 70 [facility] 2021-08-08 2021-08-08 Emergency EM DANIEL Howell [id number] [facility] 12:48:00 19:41:00 Di [id number] [facility] 2021-08-08 2021-08-08 Outpatient Lynda, SHIREEN RIOS [id number] [facility] 19:09:00 19:09:00 Di 00 [facility] 2021-08-08 2021-08-08 Transcribe Istre, 1.2.840.1 [id number] 481 [id number] Methodi 00:00:00 00:00:00 Orders Shell 88107.1.[address] Doe 3.430.2.7 Hospi ta .3.826145 l .8 2021-08-08 2021-08-08 Transcribe Istre, 1.2.840.1 417817140 223 7323686 Methodi 00:00:00 00:00:00 Orders Shell 02344.1.[address] Doe 3.430.2.7 Hospi ta .3.552290 l .8 2021-08-06 2021-08-06 Emergency Mario Myles 1.2.840.1 [id number] Methodi 14:54:00 18:50:[address] 3.430.2.7 Hospit a .3.565833 l .8 2021-08-06 2021-08-06 Emergency Mario Myles 1.2.840.1 555392609 [id number] Methodi 14:54:00 18:50:[address] 3.430.2.7 Hospit a .3.002377 l .8 2021-08-06 2021-08-06 Travel 1.2.840.1 1.2.201.830 5737 059170 Methodi 00:00:00 00:00:[address] 3.430.2.7 0.2.7.3.698 Ho spita .3.456100 084.8 l .8 2021-08-06 2021-08-06 Travel 1.2.840.1 1.2.422.639 0355 356001 Methodi 00:00:00 00:00:[address] 3.430.2.7 0.2.7.3.698 Ho spita .3.976190 084.8 l .8 2021-08-04 2021-08-04 Office Istre, 1.2.840.1 894367470 055736 2408 Methodi 14:20:00 15:33:19 Visit Shell 68644.1.[address] Doe 3.430.2.7 Hospi ta .3.240243 l .8 2021-08-04 2021-08-04 Office Istre, 1.2.840.1 425202816 550832 2511 Methodi 14:20:00 15:33:19 Visit Shell 64440.1.[address] [place] 3.430.2.7 Hospi ta .3.101451 l .8 2021-08-04 2021-08-04 Travel 1.2.840.1 1.2.114.799 8948 046461 Methodi 00:00:00 00:00:[address] 3.430.2.7 0.2.7.3.698 Ho spita .3.475898 084.8 l .8 2021-08-04 2021-08-04 Travel 1.2.840.1 1.2.379.382 7751 087682 Methodi 00:00:00 00:00:[address] 3.430.2.7 0.2.7.3.698 Ho spita .3.318778 084.8 l .8 2021-07-31 2021-07-31 Emergency Tyshawn, Nelson 1.2.840.1 734102461 [id number] Methodi 21:39:00 23:28:[address] 3.430.2.7 Hospit a .3.744374 l .8 2021-07-31 2021-07-31 Emergency Nelson Villagran 1.2.840.1 296341391 [id number] Methodi 21:39:00 23:28:[address] 3.430.2.7 Hospit a .3.571982 l .8 2021-07-31 2021-07-31 Travel 1.2.840.1 1.2.354.857 5471 711845 Methodi 00:00:00 00:00:[address] 3.430.2.7 0.2.7.3.698 Ho spita .3.023358 084.8 l .8 2021-07-31 2021-07-31 Travel 1.2.840.1 1.2.053.745 9081 134212 Methodi 00:00:00 00:00:[address] 3.430.2.7 0.2.7.3.698 Ho spita .3.450676 084.8 l .8 2021-07-30 2021-07-30 Emergency MarioSajanMyles 1.2.840.1 991267522 8412776811 Methodi 13:34:00 17:16:[address] 3.430.2.7 Hospit a .3.420817 l .8 2021-07-30 2021-07-30 Emergency Mario Myles 1.2.840.1 763519811 [id number] Methodi 13:34:00 17:16:[address] 3.430.2.7 Hospit a .3.703926 l .8 2021-07-30 2021-07-30 Telephone Istre, 1.2.840.1 680364912 2099 289177 Methodi 00:00:00 00:00:[address] Doe 3.430.2.7 Hospi ta .3.212396 l .8 2021-07-30 2021-07-30 Telephone Istre, 1.2.840.1 170154616 2100 771896 Methodi 00:00:00 00:00:[address] Doe 3.430.2.7 Hospi ta .3.269433 l .8 2021-07-28 2021-07-28 [facility] [id number] 879 [place] 00:00:00 00:00:[address] PEGGY [address] 2021-07-24 2021-07-24 Orders Lopez, 1.2.840.1 447905059 86858 22498 Methodi 00:00:00 00:00:00 Only Maureen 62439.1.[address] 3.430.2.7 Hospit a .3.791699 l .8 2021-07-24 2021-07-24 Orders Lopez, 1.2.840.1 297851171 49849 22509 Methodi 00:00:00 00:00:00 Only Maureen 71474.1.[address] 3.430.2.7 Hospit a .3.363503 l .8 2021-07-23 2021-07-23 Orders Istre, 1.2.840.1 722406470 393800 2253 Methodi 00:00:00 00:00:00 Only Shell 18260.1.[address] Doe 3.430.2.7 Hospi ta .3.094694 l .8 2021-07-23 2021-07-23 Orders Istre, 1.2.840.1 143452321 611317 1376 Methodi 00:00:00 00:00:00 Only Shell 75351.1.[address] Doe 3.430.2.7 Hospi ta .3.033896 l .8 2021-07-21 2021-07-21 Orders Istre, 1.2.840.1 116180447 915147 3618 Methodi 00:00:00 00:00:00 Only Shell 58334.1.[address] Doe 3.430.2.7 Hospi ta .3.487093 l .8 2021-07-21 2021-07-21 Orders Istre, 1.2.840.1 103963164 562348 5668 Methodi 00:00:00 00:00:00 Only Shell 33348.1.[address] Doe 3.430.2.7 Hospi ta .3.919805 l .8 2021-07-15 2021-07-15 Telephone Leggett, 1.2.840.1 731942647 [id number] Methodi 00:00:00 00:00:[address] 3.430.2.7 Hospit a .3.339898 l .8 2021-07-15 2021-07-15 Travel 1.2.840.1 1.2.799.206 7297 842601 Methodi 00:00:00 00:00:[address] 3.430.2.7 0.2.7.3.698 Ho spita .3.840208 084.8 l .8 2021-07-15 2021-07-15 Telephone Leggett, 1.2.840.1 025314019 51407815 Methodi 00:00:00 00:00:[address] 3.430.2.7 Hospit a .3.725138 l .8 2021-07-15 2021-07-15 Travel 1.2.840.1 1.2.574.501 9975 610792 Methodi 00:00:00 00:00:[address] 3.430.2.7 0.2.7.3.698 Ho spita .3.082381 084.8 l .8 2021-07-10 2021-07-10 Treatment Shell Vargas 1.2.840.1 161054041 2533195646 Methodi 09:00:00 10:00:00 Peggy Esparza 95528.1.[address] Fredrick, Smooth 3.430.2.7 H ospita .3.231793 l .8 2021-07-10 2021-07-10 Treatment Shell Vargas 1.2.840.1 558153073 1944075224 Methodi 09:00:00 10:00:00 Peggy Esparza 30756.1.[address] [place], Smooth 3.430.2.7 H ospita .3.464851 l .8 2021-07-10 2021-07-10 Plan of 1.2.840.1 327395466 124423 5796 Methodi 00:00:00 00:00:[address] Documentat 3.430.2.7 Hos margie ion .3.785523 l .8 2021-07-10 2021-07-10 Plan of 1.2.840.1 121673941 397660 1042 Methodi 00:00:00 00:00:[address] Documentat 3.430.2.7 Hos margie ion .3.818780 l .8 2021-07-09 2021-07-09 Travel 1.2.840.1 1.2.815.957 8274 506168 Methodi 00:00:00 00:00:[address] 3.430.2.7 0.2.7.3.698 Ho spita .3.086744 084.8 l .8 2021-07-09 2021-07-09 Orders Istre, 1.2.840.1 544697547 488812 0509 Methodi 00:00:00 00:00:00 Only Shell 65795.1.[address] [place] 3.430.2.7 Hospi ta .3.186150 l .8 2021-07-09 2021-07-09 Travel 1.2.840.1 1.2.682.104 0160 114858 Methodi 00:00:00 00:00:[address] 3.430.2.7 0.2.7.3.698 Ho spita .3.321807 084.8 l .8 2021-07-09 2021-07-09 Orders Istre, 1.2.840.1 513958321 737810 5132 Methodi 00:00:00 00:00:00 Only Shell 82691.1.[address] Doe 3.430.2.7 Hospi ta .3.049045 l .8 2021-07-03 2021-07-03 Travel 1.2.840.1 1.2.920.970 1884 522206 Methodi 00:00:00 00:00:[address] 3.430.2.7 0.2.7.3.698 Ho spita .3.720449 084.8 l .8 2021-07-03 2021-07-03 Travel 1.2.840.1 1.2.068.146 8158 144396 Methodi 00:00:00 00:00:[address] 3.430.2.7 0.2.7.3.698 Ho spita .3.835360 084.8 l .8 2021-06-30 2021-06-30 Emergency Tyshawn, Nelson 1.2.840.1 389667769 [id number] Methodi 14:43:00 20:06:[address] 3.430.2.7 Hospit a .3.036736 l .8 2021-06-30 2021-06-30 Emergency Tyshawn, Nelson 1.2.840.1 663224911 [id number] Methodi 14:43:00 20:06:[address] 3.430.2.7 Hospit a .3.653210 l .8 2021-06-19 2021-06-19 Orders Madera, 1.2.840.1 454401849 346316 8132 Methodi 00:00:00 00:00:00 Only Susanne 75543.1.[address] 3.430.2.7 Hospit a .3.177893 l .8 2021-06-18 2021-06-18 Orders Tran, 1.2.840.1 895280701 404493 3579 Methodi 00:00:00 00:00:00 Only Kortney 65229.1.[address] 3.430.2.7 Hospit a .3.494279 l .8 2021-06-18 2021-06-18 Telephone Jessica, 1.2.840.1 484342362 769 0736949 Methodi 00:00:00 00:00:[address] 3.430.2.7 Hospit a .3.284234 l .8 2021-06-16 2021-06-16 Office Prasanth, 1.2.840.1 709921013 493438 7933 Methodi 11:40:00 13:03:55 Visit Eddie AldridgeChantal 15543.1.[address] 3.430.2.7 Hospit a .3.770245 l .8 2021-06-16 2021-06-16 Travel 1.2.840.1 1.2.338.162 6339 329755 Methodi 00:00:00 00:00:[address] 3.430.2.7 0.2.7.3.698 Ho spita .3.848242 084.8 l .8 2021-06-03 2021-06-03 Refill Madera, 1.2.840.1 567094745 792777 9748 Methodi 00:00:00 00:00:[address] 3.430.2.7 Hospit a .3.577979 l .8 2021-06-03 2021-06-03 Telephone Brady, 1.2.840.1 [id number] 2099 762095 Methodi 00:00:00 00:00:[address] 3.430.2.7 Hospit a .3.617461 l .8 2021-06-02 2021-06-02 Emergency Gunnar, 1.2.840.1 386098246 2 [id number] Methodi 10:56:00 13:23:00 Mario Crook 90808.1.1 606 s t 3.430.2.7 Hospit a .3.058508 l .8 2021-06-02 2021-06-02 Orders Alicia, 1.2.840.1 341726570 603043 0196 Methodi 00:00:00 00:00:00 Only Shell 58557.1.[address] [place] 3.430.2.7 Hospi ta .3.368794 l .8 2021-05-30 2021-05-30 Treatment Shell Vargas 1.2.840.1 888470774 3731553568 Methodi 10:00:00 11:00:00 Smooth [place] 54029.1.[address] 3.430.2.7 Hospit a .3.259885 l .8 2021-05-28 2021-05-28 Orders Alicia, 1.2.840.1 190083091 631787 6295 Methodi 00:00:00 00:00:00 Only Shell 82327.1.[address] [place] 3.430.2.7 Hospi ta .3.589710 l .8 2021-05-27 2021-05-27 Travel 1.2.840.1 1.2.543.771 3041 335048 Methodi 00:00:00 00:00:[address] 3.430.2.7 0.2.7.3.698 Ho spita .3.524490 084.8 l .8 2021-05-19 2021-05-19 Evaluation Shell Vargas 1.2.840.1 607078891 8260669715 Methodi 11:00:00 12:00:00 Peggy Esparza 94912.1.[address] Smooth [place] 3.430.2.7 H ospita .3.131713 l .8 2021-05-19 2021-05-19 Plan of 1.2.840.1 057859908 515291 8903 Methodi 00:00:00 00:00:[address] Documentat 3.430.2.7 Hos margie ion .3.834477 l .8 2021-05-19 2021-05-19 Travel 1.2.840.1 1.2.842.797 8423 919359 Methodi 00:00:00 00:00:[address] 3.430.2.7 0.2.7.3.698 Ho spita .3.655852 084.8 l .8 2021-05-09 2021-05-09 Travel 1.2.840.1 1.2.778.648 6208 291797 Methodi 00:00:00 00:00:[address] 3.430.2.7 0.2.7.3.698 Ho spita .3.698886 084.8 l .8 2021-05-09 2021-05-09 Outpatient [facility] [id number] 977 [place] 00:00:00 00:00:[address] PEGGY [address] 2021-05-06 2021-05-06 Orders Istre, 1.2.840.1 296393921 535386 9268 Methodi 00:00:00 00:00:00 Only Shell 78681.1.[address] [place] 3.430.2.7 Hospi ta .3.326657 l .8 2021-05-05 2021-05-05 Outpatient [facility] [id number] 738 [place] 00:00:00 00:00:[address] PEGGY [address] 2021-05-04 2021-05-04 Emergency Oghogho, 1.2.840.1 057053266 377 2884599 Methodi 14:39:00 18:56:[address] 3.430.2.7 Hospit a .3.953324 l .8 2021-05-04 2021-05-04 Travel 1.2.840.1 1.2.923.215 1540 406294 Methodi 00:00:00 00:00:[address] 3.430.2.7 0.2.7.3.698 Ho spita .3.948823 084.8 l .8 2021-05-02 2021-05-02 [facility] 51618 9559 [place] 00:00:00 00:00:00 [facility] 2021-04-30 2021-04-30 Travel 1.2.840.1 1.2.205.887 6303 933966 Methodi 00:00:00 00:00:[address] 3.430.2.7 0.2.7.3.698 Ho spita .3.668600 084.8 l .8 2021-04-28 2021-04-28 Orders Istre, 1.2.840.1 907787281 560665 6125 Methodi 00:00:00 00:00:00 Only Shell 61858.1.[address] [place] 3.430.2.7 Hospi ta .3.058021 l .8 2021-04-17 2021-04-17 Office Istre, 1.2.840.1 432049094 088648 9468 Methodi 15:00:00 15:00:06 Visit Shell 35915.1.[address] Doe 3.430.2.7 Hospi ta .3.136889 l .8 2021-04-16 2021-04-16 Travel 1.2.840.1 1.2.922.960 2932 979156 Methodi 00:00:00 00:00:[address] 3.430.2.7 0.2.7.3.698 Ho spita .3.773048 084.8 l .8 2021-04-12 2021-04-12 Emergency Svach, 1.2.840.1 569905201 2099 335879 Methodi 15:47:00 22:48:00 Shine Nunes 15740.1.[address] 3.430.2.7 Hospit a .3.886027 l .8 2021-04-08 2021-04-08 Travel 1.2.840.1 1.2.823.394 0038 412697 Methodi 00:00:00 00:00:[address] 3.430.2.7 0.2.7.3.698 Ho spita .3.920093 084.8 l .8 2021-03-28 2021-03-28 Office Rj Khoury [facility] [id number] [place] 08:30:00 09:30:00 Visit Jackie [facility] 2021-03-28 2021-03-28 [facility] [id number] 6844 [place] 00:00:00 00:00:00 [facility] 2021-03-14 2021-03-14 Outpatient RADHA, [facility] 54431 1468 [place] 00:00:00 00:00:00 [facility] 2021-03-03 2021-03-03 Telephone Alicia, 1.2.840.1 [id number] 2099 638327 Methodi 11:20:00 11:48:51 Consult Shell 90838.1.[address] [place] 3.430.2.7 Hospi ta .3.501360 l .8 2021-02-27 2021-02-27 Travel 1.2.840.1 1.2.841.933 0903 754170 Methodi 00:00:00 00:00:[address] 3.430.2.7 0.2.7.3.698 Ho spita .3.217600 084.8 l .8 2021-02-19 2021-02-19 Outpatient VEEmmaPONVIRYA, [facility] 2100 [id number] [place] 00:00:00 00:00:00 PIMPRAPA 626 Metho di 2021-02-17 2021-02-17 Outpatient [facility] [id number] 297 [place] 00:00:00 00:00:00 482 Method i 2021-02-17 2021-02-17 Outpatient STACI, [facility] [id number] 406 [place] 00:00:00 00:00:00 PROCTOR 706 Method i 2021-02-10 2021-02-10 Outpatient TAVARES, [facility] [id number] 790 [place] 00:00:00 00:00:00 PEGGY 856 Method i 2021-02-07 2021-02-07 Outpatient ALICIA, [facility] [id number] 637 [place] 00:00:00 00:00:00 SHELL 793 Method i 2021-01-30 2021-01-31 Outpatient IMELDA, [facility] 995 [id number] 174 [place] 00:00:00 00:00:00 KRISTY 451 Method i 2021-01-25 2021-01-25 Emergency KENA KILLIAN [facility] 064 [id number] 11099 [place] 00:00:00 00:00:00 190 Method i 2021-01-24 2021-01-24 Outpatient CARLY, [facility] 2100 [id number] [place] 00:00:00 00:00:00 PIMPRAPA 711 Metho di 2021-01-09 2021-01-09 Outpatient [facility] [id number] 646 [place] 00:00:00 00:00:00 247 Method i 2020-12-29 2020-12-29 Emergency VASQUEZ, [facility] 064 [id number] 98 [place] 00:00:00 00:00:00 CRISTÓBAL 225 Method i 2020-12-23 2020-12-23 Outpatient PRASANTH, [facility] [id number] 498 [place] 00:00:00 00:00:00 EDDIE 305 Method i 2020-12-11 2020-12-11 Emergency VASQUEZ, [facility] 064 [id number] 96 [place] 00:00:00 00:00:00 CRISTÓBAL 030 Method i 2020-12-08 2020-12-08 Emergency TRISTAN, [facility] 064 [id number] 26 [place] 00:00:00 00:00:00 TRUNG [address] 2020-11-25 2020-11-26 Office Doug Estevez [facility] Encounter/ Legacy 00:00:00 00:00:00 Visit Symone Moreau [id number] 6520 [facility] 134149 [facility] 2020-11-25 2020-11-26 Office Doug Estevez [facility] Encounter/ Legacy 00:00:00 00:00:00 Visit Symone Moreau [id number] 6919 [facility] [id number] [facility] 2020-11-18 2020-11-18 Outpatient SMALL, [facility] [id number] 074 [place] 00:00:00 00:00:00 PROCTOR 729 Method i 2020-11-02 2020-11-02 Emergency HALEY, [facility] 963 [id number] 062 [place] 00:00:00 00:00:00 ROGER 241 Method i 2020-10-29 2020-10-29 Outpatient STACI, [facility] [id number] 857 [place] 00:00:00 00:00:00 PROCTOR 983 Method i 2020-10-25 2020-10-25 Outpatient VESOLIS, [facility] 2100 [id number] [place] 00:00:00 00:00:00 PIMPRAPA 573 Metho di 2020-10-24 2020-10-24 Outpatient VESOLIS, [facility] 2100 [id number] [place] 00:00:00 00:00:00 PIMPRAPA 921 Metho di 2020-10-18 2020-10-19 Emergency HOPE, [facility] 064 [id number] 58 [place] 00:00:00 00:00:00 TRUNG 724 Method i 2020-10-18 2020-10-18 Outpatient SMALL, [facility] [id number] 110 [place] 00:00:00 00:00:00 PROCTOR 224 Method i 2020-10-11 2020-10-11 Emergency HUDSON, [facility] 064 [id number] 52 [place] 00:00:00 00:00:00 TRUNG 080 Method i 2020-10-09 2020-10-09 Outpatient PRASANTH, [facility] [id number] 499 [place] 00:00:00 00:00:00 EDDIE 020 Method i 2020-10-01 2020-10-01 Outpatient AHMED, [facility] [id number] 980 [place] 00:00:00 00:00:00 MOHAMMAD 768 Metho di 2020-09-26 2020-09-26 Outpatient STACI, [facility] [id number] 765 [place] 00:00:00 00:00:00 PROCTOR [address] 2020-09-13 2020-09-13 Outpatient PRASANTH, [facility] [id number] 045 [place] 00:00:00 00:00:00 EDDIE 249 Method i 2020-09-11 2020-09-11 Outpatient CARLY, [facility] [id number] [place] 00:00:00 00:00:00 PIMPRAPA 754 Metho di 2020-08-23 2020-08-23 Outpatient AHMED, [facility] [id number] [place] 00:00:00 00:00:00 MOHAMMAD 132 Metho di 2020-08-19 2020-08-21 Outpatient MELTON, [place] [id number] [place] 00:00:00 00:00:00 TRUNG 187 [facility] i 2020-07-31 2020-08-01 Outpatient ARREDONDO, [place] [address] [id number] [place] 00:00:00 00:00:00 RG 628 Met hodi 2020-07-16 2020-07-16 Emergency HOPE, [facility] [id number] 18 [place] 00:00:00 00:00:00 TRUNG 600 Method i 2020-07-05 2020-07-05 Outpatient BROCK, [facility] [id number] [place] 00:00:00 00:00:00 2020-07-05 2020-07-05 Emergency VASQUEZ, [facility] 064 [id number] [place] 00:00:00 00:00:00 CRISTÓBAL 088 Method i 2020-06-28 2020-06-28 Outpatient STACI, [facility] [id number] [place] 00:00:00 00:00:00 PROCTOR 174 Method i 2020-06-27 2020-06-27 Outpatient PRASANTH, [facility] [id number] [place] 00:00:00 00:00:00 EDDIE 576 Method i 2020-06-24 2020-06-24 Outpatient ALICIA, [facility] [id number] [place] 00:00:00 00:00:00 SHELL 509 Method i 2020-06-19 2020-06-20 Emergency MORMON, [facility] 064 [id number] [place] 00:00:00 00:00:00 NADIM 685 Method i 2020-06-11 2020-06-11 Outpatient STACI, [facility] [id number] [place] 00:00:00 00:00:00 PROCTOR [address] 2020-06-11 2020-06-11 Outpatient SMALL, [facility] [id number] [place] 00:00:00 00:00:00 PROCTOR [address] 2020-06-06 2020-06-06 Outpatient ISTRE, [facility] [id number] [place] 00:00:00 00:00:00 SHELL [address] 2020-06-03 2020-06-03 Outpatient ISTRE, [facility] [id number] [place] 00:00:00 00:00:00 SHELL [address] 2020-06-03 2020-06-03 Outpatient ISTRE, [facility] [id number] [place] 00:00:00 00:00:00 SHELL 363 Method i 2020-05-26 2020-05-27 Outpatient STACI, [facility] [id number] [place] 00:00:00 00:00:00 HAYLEE [address] 2020-05-24 2020-05-24 Emergency JOSSY, [facility] 064 [id number] [place] 00:00:00 00:00:00 BELKIS [address] 2020-05-23 2020-05-23 Emergency FORMAN, [facility] 064 [id number] 56 [place] 00:00:00 00:00:00 TANIA [address] 2020 2020 Outpatient ISCORWIN, [facility] [id number] [place] 00:00:00 00:00:00 SEHLL [address] 2020 2020 Emergency KENDIG, [facility] 064 [id number] [place] 00:00:00 00:00:00 KALIF [address] 2020-05-20 2020-05-20 Outpatient ISTRE, [facility] [id number] [place] 00:00:00 00:00:00 SHELL [address] 2020-05-13 2020-05-13 Outpatient [facility] [id number] [place] 00:00:00 00:00:00 TRACILYN Healt h 2020-05-11 2020-05-11 Emergency HOPE, [place] [address] [id number] [place] 00:00:00 00:00:00 TRUNG [address] 2020-05-07 2020-05-07 Outpatient ROGER RICARDO [facility] [id number] [place] 07:48:18 07:48:18 Health 2020-04-15 2020-04-15 Emergency KENA KILLIAN [facility] [id number] [place] 00:00:00 00:00:[address] 2020-04-01 2020-04-01 Emergency KI, [facility] 064 [id number] [place] 00:00:00 00:00:00 KALIF [address] 2020-03-23 2020-03-24 Inpatient CHRISTA, [facility] [id number] [place] 00:00:00 00:00:00 STEPHY [address] 2020-03-23 2020-03-23 Emergency HOPE, [facility] 064 [id number] [place] 00:00:00 00:00:00 TRUNG [address] 2020-03-20 2020-03-20 Emergency ALTAGRACIA VILLASENOR [facility] 064 [id number] [place] 00:00:00 00:00:[address] 2020-02-29 2020-03-01 Emergency DE CRANDALL, [place] [address] [id number] [place] 00:00:00 00:00:00 CHRISTOPHER 731 Me thodi 2020-02-05 2020-02-06 Emergency ENE, [facility] 064 [id number] [place] 00:00:00 00:00:00 KEM 185 Meth john 2020-02-03 2020-02-03 Emergency DE CRANDALL, [facility] 064 [id number] [place] 00:00:00 00:00:00 CHRISTOPHER [address] 2019-12-20 2019-12-21 Emergency ENE, [facility] 064 [id number] [place] 00:00:00 00:00:00 KEM [address] 2019-12-14 2019-12-14 Emergency KI, [facility] 06 [id number] [place] 00:00:00 00:00:00 KALIF [address] 2019-12-11 2019-12-11 Emergency HOPE, [facility] 06 [id number] [place] 00:00:00 00:00:00 TRUNG Johnson [facility] 2019-12-08 2019-12-08 Emergency SUSHIL, [facility] [id number] [place] 00:00:00 00:00:00 ISAC [address] 2019-11-24 2019-11-24 Outpatient ROGER RICARDO [facility] [id number] [place] 00:00:00 00:00:00 Health 2019-11-21 2019-11-21 Emergency NELSON VILLAGRAN [facility] 064 [id number] [place] 00:00:00 00:00:[address] 2019-11-14 2019-11-14 Outpatient ROGER RICARDO [facility] [id number] [place] 06:55:06 06:55:06 Health 2019-11-13 2019-11-13 Outpatient [facility] [id number] [place] 00:00:00 00:00:00 Health 2019-11-10 2019-11-11 Emergency HOPE, [facility] 064 [id number] [place] 00:00:00 00:00:00 TRUNG [facility] [facility] 2019-11-07 2019-11-07 Outpatient [facility] [id number] [place] 14:24:03 14:24:03 Health 2019-11-07 2019-11-07 Outpatient [facility] [id number] [place] 12:22:44 12:22:44 Health 2019-11-07 2019-11-07 Outpatient [facility] [id number] [place] 00:00:00 00:00:00 2019-11-07 2019-11-07 Outpatient [facility] [id number] [place] 00:00:00 00:00:00 Health 2019-10-30 2019-10-30 [facility]patient [facility] [facility] [id number] [place] 11:49:58 11:49:58 Health 2019-10-30 2019-10-30 Outpatient [facility] [id number] [place] 00:00:00 00:00:00 Health 2019-10-12 2019-10-12 Outpatient [facility] [id number] [place] 00:00:00 00:00:00 Health 2019-10-10 2019-10-10 Outpatient [facility] [id number] [place] 08:15:33 08:15:33 Health 2019-10-09 2019-10-09 Outpatient [facility] [id number] [place] 00:00:00 00:00:00 Health 2019-09-25 2019-09-25 Outpatient [facility] [id number] [place] 00:00:00 00:00:00 Health 2019-09-19 2019-09-19 Outpatient [facility] [id number] [place] 15:17:15 15:17:15 Health 2019-09-12 2019-09-12 Outpatient [facility] [id number] [place] 09:33:27 09:33:27 Health 2019-09-12 2019-09-12 Outpatient [facility] [id number] [place] 08:35:47 08:35:47 Health 2019-09-12 2019-09-12 Outpatient [facility] [id number] [place] 00:00:00 00:00:00 Health 2019-09-09 2019-09-09 Emergency [facility] 064 [id number] [place] 00:00:00 00:00:00 [address] 2019-08-25 2019-08-25 Outpatient [facility] [id number] [place] 06:54:32 06:54:32 Health 2019-08-24 2019-08-24 Outpatient [facility] [id number] [place] 00:00:00 00:00:00 2019-08-23 2019-08-23 Outpatient [facility] [id number] [place] 00:00:00 00:00:00 Health 2019-08-05 2019-08-05 Emergency VANDER [facility] 064 [id number] [place] 00:00:00 00:00:00 [address] 2019-08-03 2019-08-03 Emergency B[facility]ON HARDIN [facility] [id number] [place] 00:00:00 00:00:[address] 2019-07-24 2019-07-24 Outpatient [facility] [id number] [place] 08:35:14 08:35:14 Health 2019-06-21 2019-06-21 Outpatient [facility] [id number] [place] 00:00:00 00:00:00 Health 2019-06-15 2019-06-16 Emergency [facility] 064 [id number] [place] 00:00:00 00:00:00 TRUNG [address] 2019-06-15 2019-06-15 Emergency [facility] MED [id number] [place] 14:03:00 14:03:00 Health 2019-06-14 2019-06-14 Outpatient [facility] [id number] [place] 00:00:00 00:00:00 Health 2019-06-08 2019-06-08 Outpatient [facility] [id number] [place] 13:49:26 13:49:26 Health 2019-06-08 2019-06-08 Outpatient [facility] [id number] [place] 13:11:00 13:11:00 Health 2019-06-08 2019-06-08 Outpatient [facility] [id number] [place] 00:00:00 00:00:00 [facility] 2019-06-07 2019-06-07 Emergency [facility] [id number] [place] 12:06:12 12:06:12 Health 2019-06-07 2019-06-07 Emergency [facility] [id number] [place] 10:57:48 10:57:48 Health 2019-03-15 2019-03-15 Outpatient [facility] [id number] [place] 14:00:36 14:00:36 [facility] 2019-03-15 2019-03-15 Outpatient [facility] [id number] [place] 12:20:09 12:20:09 [facility] 2019-03-15 2019-03-15 Outpatient [facility] [id number] [place] 00:00:00 00:00:00 [facility] 2019-01-25 2019-01-25 Outpatient [facility] [id number] [place] 10:20:47 10:20:47 Health 2019-01-13 2019-01-13 Outpatient [facility] [id number] [place] 10:25:55 10:25:55 [facility] 2019-01-03 2019-01-03 Outpatient [facility] [id number] [place] 10:33:43 10:33:43 Health 2019-01-03 2019-01-03 Outpatient [facility] [id number] [place] 08:40:50 08:40:50 Health 2019-01-03 2019-01-03 Outpatient [facility] [id number] [place] 07:58:31 07:58:31 Health 2019-01-03 2019-01-03 Outpatient [facility] [id number] [place] 00:00:00 00:00:00 [facility] 2018-12-29 2018-12-29 Outpatient [facility] [id number] [place] 00:00:00 00:00:00 [facility] 2018-12-27 2018-12-27 Outpatient [facility] [id number] [place] 00:00:00 00:00:00 [facility] 2018-12-26 2018-12-26 Outpatient [facility] [id number] [place] 16:37:58 16:37:58 [facility] 2018-12-09 2018-12-09 Outpatient [facility] [id number] [place] 16:51:56 16:51:56 Health 2018-12-09 2018-12-09 Outpatient [facility] [id number] [place] 14:15:31 14:15:31 Health 2018-12-09 2018-12-09 Outpatient [facility] [id number] [place] 00:00:00 00:00:00 [facility] 2018-11-26 2018-11-26 Emergency [facility] [id number] [place] 16:08:40 16:08:40 [facility] 2018-01-17 2018-01-17 Outpatient E [facility]RNA [facility] [id number] [place] 10:49:00 12:30:00 [facility] Center 2017-12-28 2017-12-28 Outpatient E [facility] [id number] [place] 10:12:00 12:25:00 [facility] 2017-12-20 2017-12-20 Outpatient E MYRNA [facility] [id number] [place] 23:13:00 23:50:00 Medica l Center 2017-10-15 2017-10-15 Outpatient E SHEI[facility] [id number] [place] 09:57:00 11:15:00 [facility] Results Test Description Test Time Test Comments Results Result Comments Source ECG 12 lead 2022-03-24 04:27:49 Test Item Value Reference Range Interpretation Comme nts Ventricular rate (test code = 253) Atrial rate (test code = 255) SC interval (test code = 266) QRSD interval [...] of 28-NOV-2021 10:26,-No significant change was found- [facility] 12 [id number] 04:27:49 Test Item Value Reference Range Interpretation Comments Ventricular rate (test code = 253) Atrial rate (test code = 255) SC interval (test code = 266) QRSD interval [...] of 28-NOV-2021 10:26,-No significant change was found- [address]2022-12-13 04:27:49 Test Item Value Reference Range Interpretation Comments Ventricular rate (test code = 253) Atrial rate (test code = 255) SC interval (test code = 266) QRSD interval [...] of 28-NOV-2021 10:26,-No significant change was found- [address]2022-12-13 04:27:49 Test Item Value Reference Range Interpretation Comments Ventricular rate (test 71 code = 253) Atrial rate (test code 71 = 255) SC interval (test code 124 = 266) QRSD [...] of 28-NOV-2021 10:26,-No significant change was found- [address]2022-12-13 04:27:49 Test Item Value Reference Range Interpretation Comments Ventricular rate (test 71 code = 253) Atrial rate (test code 71 = 255) SC interval (test code 124 = 266) QRSD [...] of 28-NOV-2021 10:26,-No significant change was found- [facility]2022-11-10 23:39:00 Test Item Value Reference Range Interpretation Comments Urine culture (test SEE COMMENT Bacteriu brandon screen code = 5280172) negative. [facility]2022-11-10 23:39:00 Test Item Value Reference Range Interpretation Comments Urine culture (test SEE COMMENT Bacteriu brandon screen code = 3187175) negative. [facility]2022-11-10 23:39:00 Test Item Value Reference Range Interpretation Comments Urine culture (test SEE COMMENT Bacteriu brandon screen code = 2574056) negative. [facility] [id number] 23:39:00 Test Item Value Reference Range Interpretation Comments Urine culture (test SEE COMMENT Bacteriu brandon screen code = 1288263) negative. [facility] [id number] 23:39:00 Test Item Value Reference Range Interpretation Comments Urine culture (test SEE COMMENT Bacteriu brandon screen code = 4806610) negative. [facility]2022-11-10 23:39:00 Test Item Value Reference Range Interpretation Comments Urine culture (test SEE COMMENT Bacteriu brandon screen code = 9781946) negative. [facility]2022-11-10 23:39:00 Test Item Value Reference Range Interpretation Comments Urine culture (test SEE COMMENT Bacteriu brandon screen code = 2204723) negative. [facility]2022-11-10 23:39:00 Test Item Value Reference Range Interpretation Comments Urine culture (test SEE COMMENT Bacteriu brandon screen code = 9221965) negative. [facility] B surface [id number] 22:17:00 Test Item Value Reference Range Interpretation Comments Hepatitis B surface NON-REACTIVE NON-REACTIVE Ag (test code = 5196-1) RAC (test code = RAC) Performing Organization Information: Site ID: RGRd Name: [facility] Address: [address] [place] [address] Director: Rajinder Grant [facility] with reflex to [id number] 22:17:00 Test Item Value Reference Range Interpretation Comments RPR (test code = NON-REACTIVE NON-REACTIVE 85021-5) RAC (test code = Performing Organization RAC) Information: Site ID: RGA Name: [facility] Address: [address] [place] [address] Director: Rajinder Grant [facility] C virus (HCV), quantitative [id number] 22:17:00 Test Item Value Reference Interpretation Comments Range HCV RNA, <15 NOT DETECTED NOT DETECTED quantitative PCR IU/mL (test code = 13259-4) HCV viral log <1.18 NOT DETECTED NOT DETECTED This bhupendra t was (test code = Log IU/mL performed using 95180-6) Real-Time Polym erase ChainReaction. Reportable Rang e: 15 IU/mL to 100,00 0,000 IU/mL(1.18 Log IU/mL to 8.00 Log IU/ mL). The analytical performance characteristics of thisassay have been determined by [facility]. Th e modifications h ave not been cleare d or approved bythe FDA. This assay has been validated pursu ant to the CLIA regulations and is used for clinic al purposes. For m ore information on this test, go to:http://educa tion. HouseT[employer] /faq/ZIS30m1(Th is link is being provided for informational/e ducat ional purposes only.) RAC (test code = Performing RAC) Organization Information: Site ID: IG [facility] Address: [address] [place] [address] Director: Dr. Rajinder Grant [facility] C [id number] 22:17:00 Test Item Value Reference Interpretation Comments Range Hepatitis C Ab (test REACTIVE NON-REACTIVE A code = 72490-1) Signal/cutoff (test >11.00 See_Comment H Based o n this code = 51940-2) result, the sample will be testedf or [...] RAC) Organization Information: Site ID: RGA Name: [facility] Address: [address] [place] [address] Director: Rajinder Grant Lab Interpretation Abnormal (test code = 10722-1) [facility], [id number] 22:17:00 Test Item Value Reference Interpretation Comments Range HSV 1 IgM NEGATIVE (test code = 29920-2) HSV 2 IgM NEGATIVE REFERENCE RANG E: NEGATIVE HSV (test IgM is detectab le in serum code = from >90% of [facility] 80870-6) primary HSV inf ection. However, HSV Ig [...] performancechar acteristics have been deter mined by [facility].It has not been cleared or appr luis by FDA. This assay hasb een validated pursuant to the CLIA regulations and isused for clinical purpos es. RAC (test Performing code = Organization RAC) Information: Site ID: EZ Name: [facility], Address: [address] [place] [address] Director: Crista Camacho MD,PhD,BARI [facility]V [facility]/2 antigen/antibody, fourth generation, with reflexes 2022-02-11 22:17:00 Test Item Value Reference Range Interpretation Comments HIV NON-REACTIVE NON-REACTIVE HIV-1 antigen a nd antigen/ant HIV-1/HIV-2 ant ibodies ibody 4th were notdetecte d. There gen (test is no laborator y evidence code = of HIVinfection . PLEASE 85483-4) NOTE: This info rmation has been disclo [...] ad ditional information ple ase refer tohttp://educat ion.[employer]/ faq/XOT517 (This link is b eing provided for informational/e ducational purposes only.) The performance of this assay has not been clinicallyvalid ated in patients less t lagunas 2 years old. RAC (test Performing code = RAC) Organization Information: Site ID: RGA Name: [facility] Address: [address] [place] [address] Director: Rajinder Grant [facility] 1 and 2 specific Ab [id number] 22:17:00 Test Item Value Reference Interpretation Comments [...] ease refer to http://educatio n.Ques tDiagnostics.co m/faq/ ANG596 (This li nk is being provided for informational/e ducati onal purposes o nly.) RAC (test code = Performing RAC) Organization Information: Site ID: IG Name: [facility] Address: [address] [place] [address] Director: Dr. Rajinder Grant Lab Interpretation Abnormal (test code = 18726-3) [facility] B surface [id number] 22:17:00 Test Item Value Reference Range Interpretation Comments Hepatitis B surface NON-REACTIVE NON-REACTIVE Ag (test code = 5196-1) RAC (test code = RAC) Performing Organization Information: Site ID: KATERINA Name: [facility] Address: [address] [place] [address] Director: Rajinder Grant [facility]line[facility] with reflex to [id number] 22:17:00 Test Item Value Reference Range Interpretation Comments RPR (test code = NON-REACTIVE NON-REACTIVE 68723-6) RAC (test code = Performing Organization RAC) Information: Site ID: KATERINA Name: [facility] Address: [address] [place] [address] Director: Rajinder Grant [facility] C virus (HCV), quantitative [id number] 22:17:00 Test Item Value Reference Interpretation Comments Range HCV RNA, <15 NOT DETECTED NOT DETECTED quantitative PCR IU/mL (test code = 22193-0) HCV viral log <1.18 NOT DETECTED NOT DETECTED This bhupendra t was (test code = Log IU/mL performed using 80959-5) Real-Time Polym erase ChainReaction. Reportable Rang e: 15 IU/mL to 100,00 0,000 IU/mL(1.18 Log IU/mL to 8.00 Log IU/ mL). The analytical performance characteristics of thisassay have been determined by [facility]. Th e modifications h ave not been cleare d or approved bythe FDA. This assay has been validated pursu ant to the CLIA regulations and is used for clinic al purposes. For m ore information on this test, go to:http://educa [employer]. HouseT[employer] /faq/ZBH05d1(Th is link is being provided for informational/e ducat ional purposes only.) RAC (test code = Performing RAC) Organization Information: Site ID: IG [facility]: [facility] Address: [address] [place] [address] Director: Dr. Rajinder Grant [facility] C [id number] 22:17:00 Test Item Value Reference Interpretation Comments Range Hepatitis C Ab (test REACTIVE NON-REACTIVE A code = 33813-9) Signal/cutoff (test >11.00 See_Comment H Based o n this code = 82136-8) result, the sample will be testedf or [...] RAC) Organization Information: Site ID: RGA [facility] Address: [address] [place] [address] Director: Rajinder Grant Lab Interpretation Abnormal (test code = 66589-8) [facility]2 combined Ab, [id number] 22:17:00 Test Item Value Reference Interpretation Comments Range HSV 1 IgM NEGATIVE (test code = 80217-2) HSV 2 IgM NEGATIVE REFERENCE RANG E: NEGATIVE HSV (test IgM is detectab le in serum code = from >90% of [place] tracey 87372-2) primary HSV inf ection. However, HSV Ig [...] performancechar acteristics have been deter mined by [facility].It has not been cleared or appr luis by FDA. This assay hasb een validated pursuant to the CLIA regulations and isused for clinical purpos es. RAC (test Performing code = Organization RAC) Information: Site ID: EZ Name: [facility], Address: [address] [place] [address] Director: Crista Camacho MD,PhD,BARI [facility]lineHIV 1/2 antigen/antibody, fourth generation, with reflexes 2022-02-11 22:17:00 Test Item Value Reference Range Interpretation Comments HIV NON-REACTIVE NON-REACTIVE HIV-1 antigen a nd antigen/ant HIV-1/HIV-2 ant ibodies ibody 4th were notdetecte d. There gen (test is no laborator y evidence code = of HIVinfection . PLEASE 71307-7) NOTE: This info rmation has been disclo [...] ad ditional information ple ase refer tohttp://educat ion.[employer]/ faq/JOD285 (This link is b eing provided for informational/e ducational purposes only.) The performance of this assay has not been clinicallyvalid ated in patients less t lagunas 2 years old. RAC (test Performing code = RAC) Organization Information: Site ID: RGA Name: [facility] Address: [address] [place] [address] Director: Rajinder AlvarezRobert [facility] RahwayHSV 1 and 2 specific Ab [id number] 22:17:00 Test Item Value Reference Interpretation Comments [...] ease refer to http://educatio n.Ques tDiagnostics.co m/faq/ DWF576 (This li nk is being provided for informational/e ducati onal purposes o nly.) RAC (test code = Performing RAC) Organization Information: Site ID: IG Name: [facility] Address: [address] [place] [address] Director: Dr. Rajinder Grant Lab Interpretation Abnormal (test code = 29663-6) [facility]lineHe[facility] hospitaltis [facility] surface [id number] 22:17:00 Test Item Value Reference Range Interpretation Comments Hepatitis B surface NON-REACTIVE NON-REACTIVE Ag (test code = 5196-1) RAC (test code = RAC) Performing Organization Information: Site ID: RGA Name: [facility] Address: [address] [place] [address] Director: Rajinder Grant [facility] ShorelineRPR with reflex to [id number] 22:17:00 Test Item Value Reference Range Interpretation Comments RPR (test code = NON-REACTIVE NON-REACTIVE 16524-4) RAC (test code = Performing Organization RAC) Information: Site ID: RGA Name: [facility] Address: [address] [place] [address] Director: Rajinder Grant [facility] C virus (HCV), quantitative [id number] 22:17:00 Test Item Value Reference Interpretation Comments Range HCV RNA, <15 NOT DETECTED NOT DETECTED quantitative PCR IU/mL (test code = 17568-3) HCV viral log <1.18 NOT DETECTED NOT DETECTED This bhupendra t was (test code = Log IU/mL performed using 43337-3) Real-Time Polym erase ChainReaction. Reportable Rang e: 15 IU/mL to 100,00 0,000 IU/mL(1.18 Log IU/mL to 8.00 Log IU/ mL). The analytical performance characteristics of thisassay have been determined by [facility]. Th e modifications h ave not been cleare d or approved bythe FDA. This assay has been validated pursu ant to the CLIA regulations and is used for clinic al purposes. For m ore information on this test, go to:http://educa tion. HouseTrip /faq/ESC86z8( is link is being provided for informational/e ducat ional purposes only.) RAC (test code = Performing RAC) Organization Information: Site ID: IG [facility] Address: [address] [place] [address] Director: Dr. Rajinder Grant [facility]lineHepatitis C [id number] 22:17:00 Test Item Value Reference Interpretation Comments Range Hepatitis C Ab (test REACTIVE NON-REACTIVE A code = 44115-6) Signal/cutoff (test >11.00 See_Comment H Based o n this code = 39127-2) result, the sample will be testedf or [...] RAC) Organization Information: Site ID: RGA [facility] Address: [address] [place] [address] Director: Rajinder Grant Lab Interpretation Abnormal (test code = 10638-7) [facility]2 combined Ab, [id number] 22:17:00 Test Item Value Reference Interpretation Comments Range HSV 1 IgM NEGATIVE (test code = 87374-5) HSV 2 IgM NEGATIVE REFERENCE RANG E: NEGATIVE HSV (test IgM is detectab le in serum code = from >90% of [place] tracey 10680-1) primary HSV inf ection. However, HSV Ig [...] performancechar acteristics have been deter mined by [facility].It has not been cleared or appr luis by FDA. This assay hasb een validated pursuant to the CLIA regulations and isused for clinical purpos es. RAC (test Performing code = Organization RAC) Information: Site ID: EZ Name: [facility], Address: [address] [place] [address] Director: Crista Camacho MD,PhD,BARI [facility]Robert [facility] RahwayHIV 1/2 antigen/antibody, fourth generation, with reflexes 2022-02-11 22:17:00 Test Item Value Reference Range Interpretation Comments HIV NON-REACTIVE NON-REACTIVE HIV-1 antigen a nd antigen/ant HIV-1/HIV-2 ant ibodies ibody 4th were notdetecte d. There gen (test is no laborator y evidence code = of HIVinfection . PLEASE 53093-9) NOTE: This info rmation has been disclo [...] ad ditional information ple ase refer tohttp://educat ion.[employer]/ faq/IQZ729 (This link is b eing provided for informational/e ducational purposes only.) The performance of this assay has not been clinicallyvalid ated in patients less t lagunas 2 years old. RAC (test Performing code = RAC) Organization Information: Site ID: BEBA Name: [facility] Address: [address] [place] [address] Director: Rajinder Grant [facility] ShorelineHSV 1 and 2 specific Ab [id number] 22:17:00 Test Item Value Reference Interpretation Comments [...] ease refer to http://educatio n.Tri tDiagnostics.co m/faq/ YPI735 (This li nk is being provided for informational/e ducati onal purposes o nly.) RAC (test code = Performing RAC) Organization Information: Site ID: IG Name: [facility] Address: [address] [place] [address] Director: Dr. Rajinder Grant Lab Interpretation Abnormal (test code = 55645-2) [facility]lineHepatitis B surface [id number] 22:17:00 Test Item Value Reference Range Interpretation Comments Hepatitis B surface NON-REACTIVE NON-REACTIVE Ag (test code = 5196-1) RAC (test code = RAC) Performing Organization Information: Site ID: RGA Name: [facility] Address: [address] [place] [address] Director: Rajinder Grant [facility]RP with reflex to [id number] 22:17:00 Test Item Value Reference Range Interpretation Comments RPR (test code = NON-REACTIVE NON-REACTIVE 11825-7) RAC (test code = Performing Organization RAC) Information: Site ID: RGA Name: [facility] Address: [address] [place] [address] Director: Rajinder Grant Mandaen [facility] C virus (HCV), quantitative [id number] 22:17:00 Test Item Value Reference Interpretation Comments Range HCV RNA, <15 NOT DETECTED NOT DETECTED quantitative PCR IU/mL (test code = 37865-1) HCV viral log <1.18 NOT DETECTED NOT DETECTED This bhupendra t was (test code = Log IU/mL performed using 85529-5) Real-Time Polym erase ChainReaction. Reportable Rang e: 15 IU/mL to 100,00 0,000 IU/mL(1.18 Log IU/mL to 8.00 Log IU/ mL). The analytical performance characteristics of thisassay have been determined by [facility]. Th e modifications h ave not been cleare d or approved bythe FDA. This assay has been validated pursu ant to the CLIA regulations and is used for clinic al purposes. For m ore information on this test, go to:http://educa tion. HouseTrip /faq/OTD15v5(Th is link is being provided for informational/e ducat ional purposes only.) RAC (test code = Performing RAC) Organization Information: Site ID: IG [facility] Address: [address] [place] [address] Director: Dr. Rajinder Grant Mandaen [facility] C [id number] 22:17:00 Test Item Value Reference Interpretation Comments Range Hepatitis C Ab (test REACTIVE NON-REACTIVE A code = 31882-2) Signal/cutoff (test >11.00 See_Comment H Based o n this code = 83480-0) result, the sample will be testedf or [...] RAC) Organization Information: Site ID: RGA Name: [facility] Address: [address] [place] [address] Director: Rajinder Grant Lab Interpretation Abnormal (test code = 11624-7) [facility]2 combined Ab, [id number] 22:17:00 Test Item Value Reference Interpretation Comments Range HSV 1 IgM NEGATIVE (test code = 31717-9) HSV 2 IgM NEGATIVE REFERENCE RANG E: NEGATIVE HSV (test IgM is detectab le in serum code = from >90% of [facility] 05367-0) primary HSV inf ection. However, HSV Ig [...] performancechar acteristics have been deter mined by [facility].It has not been cleared or appr luis by FDA. This assay hasb een validated pursuant to the CLIA regulations and isused for clinical purpos es. RAC (test Performing code = Organization RAC) Information: Site ID: EZ Name: [facility], Address: [address] [place] [address] Director: Crista Camacho MD,PhD,BARI [facility] 1/2 antigen/antibody, fourth generation, with reflexes 2022-02-11 22:17:00 Test Item Value Reference Range Interpretation Comments HIV NON-REACTIVE NON-REACTIVE HIV-1 antigen a nd antigen/ant HIV-1/HIV-2 ant ibodies ibody 4th were notdetecte d. There gen (test is no laborator y evidence code = of HIVinfection . PLEASE 11856-7) NOTE: This info rmation has been disclo [...] ad ditional information ple ase refer tohttp://educat ion.[employer]/ faq/ZUX899 (This link is b eing provided for informational/e ducational purposes only.) The performance of this assay has not been clinicallyvalid ated in patients less t lagunas 2 years old. RAC (test Performing code = RAC) Organization Information: Site ID: RGA Name: [facility] Address: [address] [place] [address] Director: Rajinder Grant [facility]lineHSV 1 and 2 specific Ab [id number] 22:17:00 Test Item Value Reference Interpretation Comments [...] ease refer to http://educatio n.Ques tDiagnostics.co m/faq/ OBX360 (This li nk is being provided for informational/e ducati onal purposes o nly.) RAC (test code = Performing RAC) Organization Information: Site ID: IG Name: [facility] Address: [address] [place] [address] Director: Dr. Rajinder Garnt Lab Interpretation Abnormal (test code = 71699-4) [facility] B surface [id number] 22:17:00 Test Item Value Reference Range Interpretation Comments Hepatitis B surface NON-REACTIVE NON-REACTIVE Ag (test code = 5196-1) RAC (test code = RAC) Performing Organization Information: Site ID: RGA Name: [facility] Address: [address] [place] [phone] Director: Rajinder Grant [facility] with reflex to [id number] 22:17:00 Test Item Value Reference Range Interpretation Comments RPR (test code = NON-REACTIVE NON-REACTIVE 82172-5) RAC (test code = Performing Organization RAC) Information: Site ID: RGA Name: [facility] Address: [address] [place] [address] Director: Rajinder Grant [facility] C virus (HCV), quantitative [id number] 22:17:00 Test Item Value Reference Interpretation Comments Range HCV RNA, <15 NOT DETECTED NOT DETECTED quantitative PCR IU/mL (test code = 50247-4) HCV viral log <1.18 NOT DETECTED NOT DETECTED This bhupendra t was (test code = Log IU/mL performed using 11299-4) Real-Time Polym erase ChainReaction. Reportable Rang e: 15 IU/mL to 100,00 0,000 IU/mL(1.18 Log IU/mL to 8.00 Log IU/ mL). The analytical performance characteristics of thisassay have been determined by [employer]. Th e modifications h ave not been cleare d or approved bythe FDA. This assay has been validated pursu ant to the CLIA regulations and is used for clinic al purposes. For m ore information on this test, go to:http://educa tion. House[employer] /faq/WDK85n1(Th is link is being provided for informational/e ducat ional purposes only.) RAC (test code = Performing RAC) Organization Information: Site ID: IG [facility] Address: [address] [place] [address] Director: Dr. Rajinder Grant [facility]lineHepatitis C [id number] 22:17:00 Test Item Value Reference Interpretation Comments Range Hepatitis C Ab (test REACTIVE NON-REACTIVE A code = 89383-3) Signal/cutoff (test >11.00 See_Comment H Based o n this code = 28139-2) result, the sample will be testedf or [...] RAC) Organization Information: Site ID: RGA [facility] Address: [address] [place] [address] Director: Rajinder Grant Lab Interpretation Abnormal (test code = 63222-3) [facility], [id number] 22:17:00 Test Item Value Reference Interpretation Comments Range HSV 1 IgM NEGATIVE (test code = 92070-2) HSV 2 IgM NEGATIVE REFERENCE RANG E: NEGATIVE HSV (test IgM is detectab le in serum code = from >90% of [facility] 21236-8) primary HSV inf ection. However, HSV Ig [...] performancechar acteristics have been deter mined by [facility].It has not been cleared or appr luis by FDA. This assay hasb een validated pursuant to the CLIA regulations and isused for clinical purpos es. RAC (test Performing code = Organization RAC) Information: Site ID: EZ Name: [facility], Address: [address] [place] [address] Director: Crista Camacho MD,PhD,BARI [facility]HIV 1/2 antigen/antibody, fourth generation, with reflexes 2022-02-11 22:17:00 Test Item Value Reference Range Interpretation Comments HIV NON-REACTIVE NON-REACTIVE HIV-1 antigen a nd antigen/ant HIV-1/HIV-2 ant ibodies ibody 4th were notdetecte d. There gen (test is no laborator y evidence code = of HIVinfection . PLEASE 33765-2) NOTE: This info rmation has been disclo [...] ad ditional information ple ase refer tohttp://educat ion.[employer]/ faq/RXD170 (This link is b eing provided for informational/e ducational purposes only.) The performance of this assay has not been clinicallyvalid ated in patients less t lagunas 2 years old. RAC (test Performing code = RAC) Organization Information: Site ID: RGA Name: [facility] Address: [address] [place] [address] Director: Rajinder Grant [facility]lineHSV 1 and 2 specific Ab [id number] 22:17:00 Test Item Value Reference Interpretation Comments [...] ease refer to http://educatio n.Ques tDiagnostics.co m/faq/ PKI925 (This li nk is being provided for informational/e ducati onal purposes o nly.) RAC (test code = Performing RAC) Organization Information: Site ID: IG Name: [facility] Address: [address] [place] [address] Director: Dr. Rajinder Grant Lab Interpretation Abnormal (test code = 45172-5) [facility] B surface [id number] 22:17:00 Test Item Value Reference Range Interpretation Comments Hepatitis B surface NON-REACTIVE NON-REACTIVE Ag (test code = 5196-1) RAC (test code = RAC) Performing Organization Information: Site ID: RGA Name: [facility] Address: [address] [place] [address] Director: Rajinder [facility] with reflex to [id number] 22:17:00 Test Item Value Reference Range Interpretation Comments RPR (test code = NON-REACTIVE NON-REACTIVE 18421-4) RAC (test code = Performing Organization RAC) Information: Site ID: RGA Name: [facility] Address: [address] [place] [address] Director: Rajinder Grant [facility] C virus (HCV), quantitative [id number] 22:17:00 Test Item Value Reference Interpretation Comments Range HCV RNA, <15 NOT DETECTED NOT DETECTED quantitative PCR IU/mL (test code = 27596-6) HCV viral log <1.18 NOT DETECTED NOT DETECTED This bhupendra t was (test code = Log IU/mL performed using 07509-6) Real-Time Polym erase ChainReaction. Reportable Rang e: 15 IU/mL to 100,00 0,000 IU/mL(1.18 Log IU/mL to 8.00 Log IU/ mL). The analytical performance characteristics of thisassay have been determined by [employer]. Th e modifications h ave not been cleare d or approved bythe FDA. This assay has been validated pursu ant to the CLIA regulations and is used for clinic al purposes. For m ore information on this test, go to:http://educa tion. House[employer] /faq/ZKU91g4(Th is link is being provided for informational/e ducat ional purposes only.) RAC (test code = Performing RAC) Organization Information: Site ID: IG [facility] Address: [address] [place] [address] Director: Dr. Rajinder Grant [facility] [id number] 22:17:00 Test Item Value Reference Interpretation Comments Range Hepatitis C Ab (test REACTIVE NON-REACTIVE A code = 48691-5) Signal/cutoff (test >11.00 See_Comment H Based o n this code = 45028-2) result, the sample will be testedf or [...] RAC) Organization Information: Site ID: RGA Name: [facility] Lab Address: [address] [place] [address] Director: Rajinder Grant Lab Interpretation Abnormal (test code = 48256-7) [facility] type 1/2 combined Ab, [id number] 22:17:00 Test Item Value Reference Interpretation Comments Range HSV 1 IgM NEGATIVE (test code = 94319-0) HSV 2 IgM NEGATIVE REFERENCE RANG E: NEGATIVE HSV (test IgM is detectab le in serum code = from >90% of [place] trace[place] 16842-2) primary HSV inf ection. However, HSV Ig [...] performancechar acteristics have been deter mined by [facility].It has not been cleared or appr luis by FDA. This assay hasb een validated pursuant to the CLIA regulations and isused for clinical purpos es. RAC (test Performing code = Organization RAC) Information: Site ID: EZ Name: [facility], Address: [address] [place] [address] Director: Crista Camacho MD,PhD,BARI [facility]/antibody, fourth generation, with reflexes 2022-02-11 22:17:00 Test Item Value Reference Range Interpretation Comments HIV NON-REACTIVE NON-REACTIVE HIV-1 antigen a nd antigen/ant HIV-1/HIV-2 ant ibodies ibody 4th were notdetecte d. There gen (test is no laborator y evidence code = of HIVinfection . PLEASE 62611-4) NOTE: This info rmation has been disclo [...] ad ditional information ple ase refer tohttp://educat ion.[employer]/ faq/SAS312 (This link is b eing provided for informational/e ducational purposes only.) The performance of this assay has not been clinicallyvalid ated in patients less t lagunas 2 years old. RAC (test Performing code = RAC) Organization Information: Site ID: RGA Name: [facility] Address: [address] [place] [address] Director: Rajinder Grant [facility]lineHSV 1 and 2 specific Ab [id number] 22:17:00 Test Item Value Reference Interpretation Comments Range HSV 1 IgG (test <0.90 index code = 5206-8) HSV 2 IgG (test index H Index Inte rpretation code = 5209-2) ----- ------- ------- <0.90 Negative 0.90-1.09 Equi vocal >1.09 Positive This assay utilizes recombinant type-specific [...] additional information, pl ease refer to http://educatio n.[employer]ovi[employer] /faq/FA Q118 (This link is being provided for informational/e ducatio nal purposes on ly.) RAC (test code = Performing RAC) Organization Information: Site ID: IG [facility]: [facility] Address: [address] [place] [address] Director: Dr. Rajinder Grant Lab Interpretation Abnormal (test code = 20334-2) [facility]line[facility] B surface [id number] 22:17:00 Test Item Value Reference Range Interpretation Comments Hepatitis B surface NON-REACTIVE NON-REACTIVE Ag (test code = 5196-1) RAC (test code = RAC) Performing Organization Information: Site ID: RGA Name: [facility] Address: [address] [place] [address] Director: Rajinder Grant [facility]lineRPR with reflex to [id number] 22:17:00 Test Item Value Reference Range Interpretation Comments RPR (test code = NON-REACTIVE NON-REACTIVE 22888-3) RAC (test code = Performing Organization RAC) Information: Site ID: BEBA Name: [facility] Address: [address] [place] [address] Director: Rajinder Grant [facility] virus (HCV), quantitative [id number] 22:17:00 Test Item Value Reference Interpretation Comments Range HCV RNA, <15 NOT DETECTED NOT DETECTED quantitative PCR IU/mL (test code = 97441-1) HCV viral log <1.18 NOT DETECTED NOT DETECTED This bhupendra t was (test code = Log IU/mL performed using 48217-9) Real-Time Polym erase ChainReaction. Reportable Rang e: 15 IU/mL to 100,00 0,000 IU/mL(1.18 Log IU/mL to 8.00 Log IU/ mL). The analytical performance characteristics of thisassay have been determined by [employer]. Th e modifications h ave not been cleare d or approved bythe FDA. This assay has been validated pursu ant to the CLIA regulations and is used for clinic al purposes. For m ore information on this test, go to:http://educa [employer]. [employer] /faq/IVT78b0(Th is link is being provided for informational/e ducat ional purposes only.) RAC (test code = Performing RAC) Organization Information: Site ID: IG [facility] Address: [address] [place] [address] Director: Dr. Rajinder Grant [facility] C [id number] 22:17:00 Test Item Value Reference Interpretation Comments Range Hepatitis C Ab (test REACTIVE NON-REACTIVE A code = 44660-3) Signal/cutoff (test >11.00 <=1.00 H Based o n this code = 79201-9) result, the sample will be testedf or HCV RNA by a Nucleic Acid Amplification T est (NAAT)to determ ine if the patient has a current activeinfection . RAC (test code = Performing RAC) Organization Information: Site ID: RGA Name: [facility] Lab Address: [address] [place] [address] Director: Rajinder Grant Lab Interpretation Abnormal (test code = 55245-4) [facility]HS[facility], [id number] 22:17:00 Test Item Value Reference Interpretation Comments Range HSV 1 IgM NEGATIVE (test code = 21087-3) HSV 2 IgM NEGATIVE REFERENCE RANG E: NEGATIVE HSV (test IgM is detectab le in serum code = from >90% of [place] tracey [address]-7) primary HSV inf ection. However, HSV Ig [...] performancechar acteristics have been deter mined by [facility].It has not been cleared or appr luis by FDA. This assay hasb een validated pursuant to the CLIA regulations and isused for clinical purpos es. RAC (test Performing code = Organization RAC) Information: Site ID: EZ Name: [facility], Address: [address] [place] [address] Director: Crista Camacho MD,PhD,BARI [facility] RahwayHIV 1/2 antigen/antibody, fourth generation, with reflexes 2022-02-11 22:17:00 Test Item Value Reference Range Interpretation Comments HIV NON-REACTIVE NON-REACTIVE HIV-1 antigen a nd antigen/ant HIV-1/HIV-2 ant ibodies ibody 4th were notdetecte d. There gen (test is no laborator y evidence code = of HIVinfection . PLEASE 19019-1) NOTE: This info rmation has been disclo [...] ad ditional information ple ase refer tohttp://educat ion.[employer]/ faq/FDU966 (This link is b eing provided for informational/e ducational purposes only.) The performance of this assay has not been clinicallyvalid ated in patients less t lagunas 2 years old. RAC (test Performing code = RAC) Organization Information: Site ID: RGA Name: [facility] Address: [address] [place] [address] Director: Rajinder Grant [facility]lineHSV 1 and 2 specific Ab [id number] 22:17:00 Test Item Value Reference Interpretation Comments [...] ease refer to http://educatio n.Tri tDiagnostics.co m/faq/ SXS071 (This li nk is being provided for informational/e ducati onal purposes o nly.) RAC (test code = Performing RAC) Organization Information: Site ID: IG Name: [facility] Address: [address] [place] [address] Director: Dr. Rajinder Grant Lab Interpretation Abnormal (test code = 85215-1) [facility] B surface [id number] 22:17:00 Test Item Value Reference Range Interpretation Comments Hepatitis B surface NON-REACTIVE NON-REACTIVE Ag (test code = 5196-1) RAC (test code = RAC) Performing Organization Information: Site ID: BEBA Name: [facility] Address: [address] [place] [address] Director: Rajinder Grant [facility]lineRPR with reflex to [id number] 22:17:00 Test Item Value Reference Range Interpretation Comments RPR (test code = NON-REACTIVE NON-REACTIVE 04202-8) RAC (test code = Performing Organization RAC) Information: Site ID: RGA Name: [facility] Address: [address] [place] [address] Director: Rajinder rGant [facility] C virus (HCV), quantitative [id number] 22:17:00 Test Item Value Reference Interpretation Comments Range HCV RNA, <15 NOT DETECTED NOT DETECTED quantitative PCR IU/mL (test code = 05637-1) HCV viral log <1.18 NOT DETECTED NOT DETECTED This bhupendra t was (test code = Log IU/mL performed using 89270-8) Real-Time Polym erase ChainReaction. Reportable Rang e: 15 IU/mL to 100,00 0,000 IU/mL(1.18 Log IU/mL to 8.00 Log IU/ mL). The analytical performance characteristics of thisassay have been determined by [employer]. Th e modifications h ave not been cleare d or approved bythe FDA. This assay has been validated pursu ant to the CLIA regulations and is used for clinic al purposes. For m ore information on this test, go to:http://educa tion. HouseT[employer] /faq/ZUV51a8(Th is link is being provided for informational/e ducat ional purposes only.) RAC (test code = Performing RAC) Organization Information: Site ID: IG [facility] Address: [address] [place] [address] Director: Dr. Rajinder Grant [facility] C [id number] 22:17:00 Test Item Value Reference Interpretation Comments Range Hepatitis C Ab (test REACTIVE NON-REACTIVE A code = 05864-5) Signal/cutoff (test >11.00 <=1.00 H Based o n this code = 42781-9) result, the sample will be testedf or HCV RNA by a Nucleic Acid Amplification T est (NAAT)to determ ine if the patient has a current activeinfection . RAC (test code = Performing RAC) Organization Information: Site ID: RGA Name: [facility] Address: [address] [place] [address] Director: Rajinder Grant Lab Interpretation Abnormal (test code = 15325-5) [facility] type 1/2 combined Ab, [id number] 22:17:00 Test Item Value Reference Interpretation Comments Range HSV 1 IgM NEGATIVE (test code = 35839-0) HSV 2 IgM NEGATIVE REFERENCE RANG E: NEGATIVE HSV (test IgM is detectab le in serum code = from >90% of [facility] 75[address]-7) primary HSV inf ection. However, HSV Ig [...] performancechar acteristics have been deter mined by [employer].It has not been cleared or appr luis by FDA. This assay hasb een validated pursuant to the CLIA regulations and isused for clinical purpos es. RAC (test Performing code = Organization RAC) Information: Site ID: EZ Name: [facility], Address: [address] [place] [address] Director: Crista Camacho MD,PhD,BARI [facility] 1/2 antigen/antibody, fourth generation, with reflexes 2022-02-11 22:17:00 Test Item Value Reference Range Interpretation Comments HIV NON-REACTIVE NON-REACTIVE HIV-1 antigen a nd antigen/ant HIV-1/HIV-2 ant ibodies ibody 4th were notdetecte d. There gen (test is no laborator y evidence code = of HIVinfection . PLEASE 86634-9) NOTE: This info rmation has been disclo [...] ad ditional information ple ase refer tohttp://educat ion.[employer]/ faq/OVA635 (This link is b eing provided for informational/e ducational purposes only.) The performance of this assay has not been clinicallyvalid ated in patients less t lagunas 2 years old. RAC (test Performing code = RAC) Organization Information: Site ID: RGA Name: [facility] Address: [address] [place] [address] Director: Rajinder Grant [facility] and 2 specific Ab [id number] 22:17:00 Test Item Value Reference Interpretation Comments Range HSV 1 IgG (test <0.90 index code = 5206-8) HSV 2 IgG (test 17.90 index H Index Inte rpretation code = [...] additional information, pl ease refer to http://educatio n.[employer]ovi.com /faq/FA Q118 (This link is being provided for informational/e ducatio nal purposes on ly.) RAC (test code = Performing RAC) Organization Information: Site ID: IG Name: [facility] Lab Address: [address] [place] [address] Director: Dr. Rajinder Grant Lab Interpretation Abnormal (test code = 86710-0) [facility] [id number] 15:02:28 Test Item Value Reference Range Interpretation Comments Case number (test code = [id number]) Surgical pathology See link below for report (test code = PDF Lab Report 2255) Result status (test code This is Final Report = [id number]) for [address] pathology [id number] 15:02:28 Test Item Value Reference Range Interpretation Comments Case number (test code = [id number]) Surgical pathology See link below for report (test code = PDF Lab Report 2255) Result status (test code This is Final Report = [id number]) for [id number] [facility] [id number] 15:02:28 Test Item Value Reference Range Interpretation Comments Case number (test code = [id number]) Surgical pathology See link below for report (test code = PDF Lab Report 2255) Result status (test code This is Final Report = [id number]) for [id number] [facility] [id number] 15:02:28 Test Item Value Reference Range Interpretation Comments Case number (test code = [id number]) Surgical pathology See link below for report (test code = PDF Lab Report 2255) Result status (test code This is Final Report = [id number]) for [id number] [facility] [id number] 15:02:28 Test Item Value Reference Range Interpretation Comments Case number (test code = [id number]) Surgical pathology See link below for report (test code = PDF Lab Report 2255) Result status (test code This is Final Report = [id number]) for [id number] [facility] [id number] 15:02:28 Test Item Value Reference Range Interpretation Comments Case number (test code = [id number]) Surgical pathology See link below for report (test code = PDF Lab Report 2255) Result status (test code This is Final Report = [id number]) for [id number] [facility] [id number] 15:02:28 Test Item Value Reference Range Interpretation Comments Case number (test code = [id number]) Surgical pathology See link below for report (test code = PDF Lab Report 2255) Result status (test code This is Final Report = [id number]) for [id number] [facility] [id number] 15:02:28 Test Item Value Reference Range Interpretation Comments Case number (test code = [id number]) Surgical pathology See link below for report (test code = PDF Lab Report 2255) Result status (test code This is Final Report = [id number]) for [id number] [facility] qualitative [id number] 22:09:28 Test Item Value Reference Interpretation Comments Range Interpretation (test Negative results do not code = 8327177) preclude COVID-19 infection and should not be used asthe sole basis for treatment or other patient management decisions. Negativeresults must be combined with clinical observations, patient history, andepidemiological information. COVID-19 qualitative Not-Detected Not-Detected RT-PCR result (test code = 39329-9) COVID-19 qualitative See link below for PDF Case Number: RT-PCR (test code = Lab Report [id number]) [facility] qualitative [id number] 22:09:28 Test Item Value Reference Interpretation Comments Range Interpretation (test Negative results do not code = 9969599) preclude COVID-19 infection and should not be used asthe sole basis for treatment or other patient management decisions. Negativeresults must be combined with clinical observations, patient history, andepidemiological information. COVID-19 qualitative Not-Detected Not-Detected RT-PCR result (test code = 19476-5) COVID-19 qualitative See link below for PDF Case Number: RT-PCR (test code = Lab Report [id number] [id number]) [facility] qualitative [id number] 22:09:28 Test Item Value Reference Interpretation Comments Range Interpretation (test Negative results do not code = 9010793) preclude COVID-19 infection and should not be used asthe sole basis for treatment or other patient management decisions. Negativeresults must be combined with clinical observations, patient history, andepidemiological information. COVID-19 qualitative Not-Detected Not-Detected RT-PCR result (test code = 20961-6) COVID-19 qualitative See link below for PDF Case Number: RT-PCR (test code = Lab Report [id number] [id number]) [facility] [id number] 22:09:28 Test Item Value Reference Interpretation Comments Range Interpretation (test Negative results do not code = 0744116) preclude COVID-19 infection and should not be used asthe sole basis for treatment or other patient management decisions. Negativeresults must be combined with clinical observations, patient history, andepidemiological information. COVID-19 qualitative Not-Detected Not-Detected RT-PCR result (test code = 22485-0) COVID-19 qualitative See link below for PDF Case Number: RT-PCR (test code = Lab Report [id number] 7070) [facility] [id number] 22:09:28 Test Item Value Reference Interpretation Comments Range Interpretation (test Negative results do not code = 6445823) preclude COVID-19 infection and should not be used asthe sole basis for treatment or other patient management decisions. Negativeresults must be combined with clinical observations, patient history, andepidemiological information. COVID-19 qualitative Not-Detected Not-Detected RT-PCR result (test code = 81159-1) COVID-19 qualitative See link below for PDF Case Number: RT-PCR (test code = Lab Report [id number] 7070) [facility] [id number] 22:09:28 Test Item Value Reference Interpretation Comments Range Interpretation (test Negative results do not code = 1273786) preclude COVID-19 infection and should not be used asthe sole basis for treatment or other patient management decisions. Negativeresults must be combined with clinical observations, patient history, andepidemiological information. COVID-19 qualitative Not-Detected Not-Detected RT-PCR result (test code = 71275-9) COVID-19 qualitative See link below for PDF Case Number: RT-PCR (test code = Lab Report [id number] 7070) [facility] [id number] 22:09:28 Test Item Value Reference Interpretation Comments Range Interpretation (test Negative results do not code = 9083973) preclude COVID-19 infection and should not be used asthe sole basis for treatment or other patient management decisions. Negativeresults must be combined with clinical observations, patient history, andepidemiological information. COVID-19 qualitative Not-Detected Not-Detected RT-PCR result (test code = 22936-1) COVID-19 qualitative See link below for PDF Case Number: RT-PCR (test code = Lab Report [id number] 7070) [facility] [id number] 22:09:28 Test Item Value Reference Interpretation Comments Range Interpretation (test Negative results do not code = 2609759) preclude COVID-19 infection and should not be used asthe sole basis for treatment or other patient management decisions. Negativeresults must be combined with clinical observations, patient history, andepidemiological information. COVID-19 qualitative Not-Detected Not-Detected RT-PCR result (test code = 40003-6) COVID-19 qualitative See link below for PDF Case Number: RT-PCR PDF (test Lab Report [id number] 1 code = 7070) [facility] RNA [Presence] in Respiratory specimen by LATESHA with probe [id number] 17:09:28 Test Item Value Reference Range Interpretation Comments SARS-CoV-2 (COVID-19) RNA Not detected [Presence] in Respiratory specimen by LATESHA with probe detection (test code = 52269-8) Whether patient is employed in a Unknown healthcare setting (test code = 42505-2) Whether the patient has symptoms Unknown related to condition of interest (test code = 20358-4) Whether the patient was Unknown hospitalized for condition of interest (test code = 46385-9) Whether the patient was admitted Unknown to intensive care unit (ICU) for condition of interest (test code = 59304-1) Whether patient resides in a Unknown congregate care setting (test code = 19790-5) status (test code = Unknown 70370-4) Date and time of symptom onset Unknown (test code = 57148-0) [facility]INPRE[facility] T[facility] AND HPV mRNA [id number] 20:30:00 Test Item Value Reference Interpretation Comments Range Clinical information None gi niurka (test code = 54158-8) Date of last NONE GIVEN menstrual period (test code = 8665-2) Prev. pap: (test code NONE G IVEN = 76617-8) Prev. bx: (test code NONE GI NIURKA = 49280-3) Source (test code = None giv en 35005-6) Statement of adequacy Satisf actory for (test code = 81622-0) evalua tion.Endocervi cony/transformat ion zone componentpresen t.Age and/or menstrua l status not prov ided Interpretation/result Negati ve for : (test code = intraepitheli al 62217-3) lesion or malignancy. Comment (test code = This Pa p test has ) been evaluated with Center[employer] Solutionsiste d technology. Journal Entry Audit Clerk SYL DUTTON ( CP)CT (test code = 32706-9) screen ing location: [address], [facility] [address] Comment (test code = EXPLANA TORY NOTE: 4104050) The Pap is a screening test for [...] Detected Not Detected Methodo logy: code = 47910-9) Transcriptio n-Mediat ed Amplificatio n This assay [...] For additional information, pl ease refer tohttp://educat ion.Minglebox/ faq/MOM815b0(Th is link if provide d for information/edu catio nal purposes on ly.) RAC (test code = RAC) Performing Organization Information: Site ID: IG Name: [facility] Address: [address] [place] [address] Director: Dr. Rajinder Grant Site ID: RGA Name: [facility] Address: [address] [place] [address] Director: Rajinder Grant [facility]INPREP TIS AND HPV mRNA [id number] 20:30:00 Test Item Value Reference Interpretation Comments Range Clinical information None gi niurka (test code = 09370-4) Date of last NONE GIVEN menstrual period (test code = 8665-2) Prev. pap: (test code NONE G IVEN = 54807-8) Prev. bx: (test code NONE GI NIURKA = 37022-0) Source (test code = None giv en 31075-2) Statement of adequacy Satisf actory for (test code = 52157-3) evalua tion.Endocervi cony/transformat ion zone componentpresen t.Age and/or menstrua l status not prov ided Interpretation/result Negati ve for : (test code = intraepitheli al 36628-5) lesion or malignancy. Comment (test code = [place] 02039-7) been evaluated with computerassiste d technology. Journal Entry Audit Clerk DJL, CT ( CP)CT (test code = 11070-2) screen ing location: [facility] [address] [place] [address], [place] [address] Comment (test code = EXPLANA TORY NOTE: 2230401) The Pap is a screening test for [...] Detected Not Detected Methodo logy: code = 48463-8) Transcriptio n-Mediat ed Amplificatio n This assay [...] For additional information, pl ease refer tohttp://educat ion.Minglebox/ faq/WAA131i6(Th is link if provide d for information/edu catio nal purposes on ly.) JACEK (test code = RAC) Performing Organization Information: Site ID: IG Name: [facility] Address: [address] [place] [address] Director: Dr. Rajinder Grant Site ID: RGA Name: [facility] Address: [address] [place] [address] Director: Rajinder Grant [facility]INPREP TIS AND HPV mRNA [id number] 20:30:00 Test Item Value Reference Interpretation Comments Range Clinical information None gi niurka (test code = 17437-9) Date of last NONE GIVEN menstrual period (test code = 8665-2) Prev. pap: (test code NONE G IVEN = 12418-6) Prev. bx: (test code NONE GI NIURKA = 50316-9) Source (test code = None giv en ) Statement of adequacy Satisf actory for (test code = 12774-5) evalua tion.Endocervi cony/transformat ion zone componentpresen t.Age and/or menstrua l status not prov ided Interpretation/result Negati ve for : (test code = intraepitheli al 21087-3) lesion or malignancy. Comment (test code = This Pa p test has ) been evaluated with [employer] d technology. Journal Entry Audit Clerk NATO CT ( CP)CT (test code = 91726-8) screen ing location: [address], [place] [address] Comment (test code = VIRGILIO CASTELLANO NOTE: 4290960) The Pap is a screening test for [...] Detected Not Detected Methodo logy: code = 26549-6) Transcriptio n-Mediat ed Amplificatio n This assay [...] For additional information, pl ease refer tohttp://educat ion.[employer] .[employer]/ faq/QFK898c8(Th is link if provide d for information/edu catio nal purposes on ly.) RAC (test code = RAC) Performing Organization Information: Site ID: IG Name: [facility] Address: [address] [place] [address] Director: Dr. Rajinder Grant Site ID: RGA Name: [facility] Address: [address] [place] [address] Director: Rajinder Grant [facility]INPREP TIS AND HPV mRNA [id number] 20:30:00 Test Item Value Reference Interpretation Comments Range Clinical information None gi niurka (test code = 75402-5) Date of last NONE GIVEN menstrual period (test code = 8665-2) Prev. pap: (test code NONE G IVEN = 25317-0) Prev. bx: (test code NONE GI NIURKA = 53540-7) Source (test code = None giv en ) Statement of adequacy Satisf actory for (test code = 66830-5) evalua tion.Endocervi cony/transformat ion zone componentpresen t.Age and/or menstrua l status not prov ided Interpretation/result Negati ve for : (test code = intraepitheli al 64857-6) lesion or malignancy. Comment (test code = This Pa p test has ) been evaluated with [employer] technology. Journal Entry Audit Clerk NATO, CT ( CP)CT (test code = 81016-3) screen ing location: [place] [address] [address] [facility], [facility] [address] Comment (test code = EXPLANA TORY NOTE: 9220756) The Pap is a screening test for [...] Detected Not Detected Methodo logy: code = 87686-5) Transcriptio n-Mediat ed Amplificatio n This assay [...] For additional information, pl ease refer tohttp://educat ion.Minglebox/ faq/KQH479n4(Th is link if provide d for information/edu catio nal purposes on ly.) JACEK (test code = JACEK) Performing Organization Information: Site ID: IG Name: [facility] Address: [address] [place] [address] Director: Dr. Rajinder Grant Site ID: RGA Name: [facility] Address: [address] [place] [address] Director: Rajinder Grant [facility]andaenRobert [facility] RahwayTHINPREP TIS AND HPV mRNA [id number] 20:30:00 Test Item Value Reference Interpretation Comments Range Clinical information None gi niurka (test code = 65262-5) Date of last NONE GIVEN menstrual period (test code = 8665-2) Prev. pap: (test code NONE G IVEN = 57704-9) Prev. bx: (test code NONE GI NIURKA = 66640-8) Source (test code = None giv en ) Statement of adequacy Satisf actory for (test code = 30973-6) evalua tion.Endocervi cony/transformat ion zone componentpresen t.Age and/or menstrua l status not prov ided Interpretation/result Negati ve for : (test code = intraepitheli al 05710-0) lesion or malignancy. Comment (test code = This Pa p test has ) been evaluated with [employer] d technology. Journal Entry Audit Clerk NATO, CT ( CP)CT (test code = 80673-6) screen ing location: [address], [place] [address] Comment (test code = EXPLANA TORY NOTE: 5310543) The Pap is a screening test for [...] Detected Not Detected Methodo logy: code = 19867-4) Transcriptio n-Mediat ed Amplificatio n This assay [...] For additional information, pl ease refer tohttp://educat ion.Minglebox/ faq/ABU184x2(Th is link if provide d for information/edu catio nal purposes on ly.) JACEK (test code = RAC) Performing Organization Information: Site ID: IG Name: [facility] Address: [address] [place] [address] Director: Dr. Rajinder Grant Site ID: RGA Name: [facility] Address: [address] [place] [address] Director: Rajinder Grant [facility]INPREP TIS AND HPV mRNA [id number] 20:30:00 Test Item Value Reference Interpretation Comments Range Clinical information None gi niurka (test code = 25044-5) Date of last NONE GIVEN menstrual period (test code = 8665-2) Prev. pap: (test code NONE G IVEN = 51788-6) Prev. bx: (test code NONE GI NIURKA = 49357-0) Source (test code = None giv en 09935-6) Statement of adequacy Satisf actory for (test code = 11171-0) evalua tion.Endocervi cony/transformat ion zone componentpresen t.Age and/or menstrua l status not prov ided Interpretation/result Negati ve for : (test code = intraepitheli al 12006-2) lesion or malignancy. Comment (test code = [place] 17966-6) been evaluated with computerassiste d technology. Journal Entry Audit Clerk NATO, CT ( CP)CT (test code = 66838-3) screen ing location: [facility] [address] [place] [address], [place] [address] Comment (test code = EXPLANA TORY NOTE: 9361300) The Pap is a screening test for [...] Detected Not Detected Methodo logy: code = 80102-1) Transcriptio n-Mediat ed Amplificatio n This assay [...] For additional information, pl ease refer tohttp://educat ion.Minglebox/ faq/TNF000c9(Th is link if provide d for information/edu catio nal purposes on ly.) JACEK (test code = JACEK) Performing Organization Information: Site ID: IG Name: [facility] Address: [address] [place] [address] Director: Dr. Rajinder Grant Site ID: RGA Name: [facility] Address: [address] [place] [address] Director: Rajinder Grant [facility]INPREP TIS AND HPV mRNA [id number] 20:30:00 Test Item Value Reference Interpretation Comments Range Clinical information None gi niurka (test code = 06968-4) Date of last NONE GIVEN menstrual period (test code = 8665-2) Prev. pap: (test code NONE G IVEN = 60128-8) Prev. bx: (test code NONE GI NIURKA = 03822-9) Source (test code = None giv en ) Statement of adequacy Satisf actory for (test code = 04804-2) evalua tion.Endocervi cony/transformat ion zone componentpresen t.Age and/or menstrua l status not prov ided Interpretation/result Negati ve for : (test code = intraepitheli al 11046-0) lesion or malignancy. Comment (test code = This Pa p test has ) been evaluated with [employer]iste d technology. Journal Entry Audit Clerk NATO CT ( CP)CT (test code = 86547-0) screen ing location: [address], [place] [address] Comment (test code = MARYURIA NONA NOTE: 8028567) The Pap is a screening test for [...] Detected Not Detected Methodo logy: code = 41556-2) Transcriptio n-Mediat ed Amplificatio n This assay [...] For additional information, pl ease refer tohttp://educat ion.[employer] .[employer]/ faq/ZLO642e7(Th is link if provide d for information/edu catio nal purposes on ly.) RAC (test code = RAC) Performing Organization Information: Site ID: IG Name: [facility] Address: [address] [place] [address] Director: Dr. aRjinder Grant Site ID: RGA Name: [facility] Address: [address] [place] [address] Director: Rajinder Grant [facility]INPREP TIS AND HPV mRNA [id number] 20:30:00 Test Item Value Reference Interpretation Comments Range Clinical information None gi niurka (test code = 43163-5) Date of last NONE GIVEN menstrual period (test code = 8665-2) Prev. pap: (test code NONE G IVEN = 22144-3) Prev. bx: (test code NONE GI NIURKA = 02111-6) Source (test code = None giv en ) Statement of adequacy Satisf actory for (test code = 95376-2) evalua tion.Endocervi cony/transformat ion zone componentpresen t.Age and/or menstrua l status not prov ided Interpretation/result Negati ve for : (test code = intraepitheli al 43294-9) lesion or malignancy. Comment (test code = This Pa p test has ) been evaluated with [employer] technology. Journal Entry Audit Clerk NATO, CT ( CP)CT (test code = 94758-2) screen ing location: [place] [address] [address] [facility], [facility] [address] Comment (test code = EXPLANA TORY NOTE: 7997518) The Pap is a screening test for [...] Detected Not Detected Methodo logy: code = 22418-3) Transcriptio n-Mediat ed Amplificatio n This assay [...] For additional information, pl ease refer tohttp://educat ion.Minglebox/ faq/QWY007t1(Th is link if provide d for information/edu catio nal purposes on ly.) JACEK (test code = JACEK) Performing Organization Information: Site ID: IG Name: [facility] Address: [address] [place] [address] Director: Dr. Rajinder Grant Site ID: RGA Name: [facility] Address: [address] [place] [address] Director: Rajinder Grant [address]2022-09-01 18:14:37 Test Item Value Reference Range Interpretation Comments Ventricular rate (test code = 253) Atrial rate (test code = 255) SC interval (test code = 266) QRSD interval [...] of 07-NOV-2021 12:57,-No significant change was found- [address]2022-09-01 18:14:37 Test Item Value Reference Range Interpretation Comments Ventricular rate (test code = 253) Atrial rate (test code = 255) SC interval (test code = 266) QRSD interval [...] of 07-NOV-2021 12:57,-No significant change was found- [address]2022-09-01 18:14:37 Test Item Value Reference Range Interpretation Comments Ventricular rate (test code = 253) Atrial rate (test code = 255) SC interval (test code = 266) QRSD interval [...] of 07-NOV-2021 12:57,-No significant change was found- [facility] RNA [Presence] in Respiratory specimen by LATESHA with probe [id number] 21:57:49 Test Item Value Reference Range Interpretation Comments SARS-CoV-2 (COVID-19) RNA [Presence] Detected in Respiratory specimen by LATESHA with probe detection (test code = 75988-5) Whether patient is employed in a Unknown healthcare setting (test code = 96573-8) Whether the patient has symptoms Unknown related to condition of interest (test code = 67464-2) Whether the patient was hospitalized Unknown for condition of interest (test code = 21837-1) Whether the patient was admitted to Unknown intensive care unit (ICU) for condition of interest (test code = 71602-9) Whether patient resides in a Unknown congregate care setting (test code = 68303-3) status (test code = Unknown 08466-3) Date and time of symptom onset (test Unknown code = 49197-6) [facility] function [id number] 18:40:00 Test Item Value Reference Range Interpretation Comments Protein (test code 6.6 g/dL 6.1-8.1 = 2885-2) Albumin, S (test 4.1 g/dL 3.6-5.1 code = 1751-7) Globulin, total See_Comment [Automated (test code = message] The 66796-8) system which generated this result transmitted reference range : 1.9 - 3.7 g/dL (calc). The reference range was not used to interpret this result as normal/abnormal . Albumin/globulin See_Comment [Automated ratio (test code = message] The 88880) system which generated this result transmitted reference range : 1.0 - 2.5 (calc ). The reference range was not used to interpr et this result as normal/abnormal . Total bilirubin 0.5 mg/dL 0.2-1.2 (test code = 1975-2) Bilirubin direct 0.1 mg/dL See_Comment [Automated (test [...] RAC) Organization Information: Site ID: RGA Name: [facility] Address: [address] [place] [address] Director: Rajinder Grant [facility] function [id number] 18:40:00 Test Item Value Reference Range Interpretation [...] RAC) Organization Information: Site ID: RGA Name: [facility] Address: [address] [place] [address] Director: Rajinder Girma Grant [facility] function [id number] 18:40:00 Test Item Value Reference Range Interpretation [...] RAC) Organization Information: Site ID: BEBA Name: [facility] Address: [address] [place] [address] Director: Mcgrath Girma MedinaRudySumma Health Akron CampusHepatic function [id number] 18:40:00 Test Item Value Reference Range Interpretation Comments Protein (test code 6.6 g/dL 6.1-8.1 = 2885-2) Albumin, S (test 4.1 g/dL 3.6-5.1 code = 1757) Globulin, total See_Comment [Automated (test code = [...] RAC) Organization Information: Site ID: KATERINA Name: [facility] Address: [address] [place] [address] Director: Rajinder LamarTrinity Health System East CampusHepatic function [id number] 18:40:00 Test Item Value Reference Range Interpretation [...] RAC) Organization Information: Site ID: RGA Name: [facility] Address: [address] [place] [address] Director: Rajinder LamarTrinity Health System East CampusHepatic function [id number] 18:40:00 Test Item Value Reference Range Interpretation [...] RAC) Organization Information: Site ID: RGA Name: [facility] Address: [address] [place] [address] Director: Rajinder Grant [facility] function [id number] 18:40:00 Test Item Value Reference Range Interpretation [...] RAC) Organization Information: Site ID: RGA Name: [facility] Address: [address] [place] [address] Director: Rajinder KiddThe University of Texas M.D[facility] Anderson Cancer CenterHepatic function [id number] 18:40:00 Test Item Value Reference Range Interpretation [...] [Automated ratio (test code = message] The 1759-0) system which generated this result transmitted reference [...] RAC) Organization Information: Site ID: RGA Name: [facility] Address: [address] [place] [address] Director: Rajinder Parker MdzllxsmUQUI-JjL-4 (COVID-19) RNA [Presence] in Respiratory specimen by LATESHA with probe [id number] 20:46:09 Test Item Value Reference Range Interpretation Comments SARS-CoV-2 (COVID-19) RNA Not detected [Presence] in Respiratory specimen by LATESHA with probe detection (test code = 64053-0) Whether patient is employed in a Unknown healthcare setting (test code = 51931-4) Whether the patient has symptoms Unknown related to condition of interest (test code = 35073-3) Whether the patient was Unknown hospitalized for condition of interest (test code = 02793-8) Whether the patient was admitted Unknown to intensive care unit (ICU) for condition of interest (test code = 41744-1) Whether patient resides in a Unknown congregate care setting (test code = 70409-6) status (test code = Unknown 22891-3) Date and time of symptom onset Unknown (test code = 62235-8) [facility] [id number] 05:23:00 Test Item Value Reference Range Interpretation Comments TSH (test code mIU/L Reference Ra nge > = 3016-3) or = 20 Years 0.40-4.50 Range s First trimester 0.26-2.66 Secon d trimester 0.55-2.73 Third trimester 0.43-2.91 RAC (test code Performing = RAC) Organization Information: Site ID: RGA Name: [facility] Address: [address] [place] [address] [facility] 05:23:00 Test Item Value Reference Range Interpretation Comments TSH (test code mIU/L Reference Ra nge > = 3016-3) or = 20 Years 0.40-4.50 Range s First trimester 0.26-2.66 Secon d trimester 0.55-2.73 Third trimester 0.43-2.91 RAC (test code Performing = RAC) Organization Information: Site ID: RGA Name: [facility] Address: [address] [place] [address] Director[facility]2022-[facility]-11 05:23:00 Test Item Value Reference Range Interpretation Comments TSH (test code mIU/L Reference Ra nge > = 3016-3) or = 20 Years 0.40-4.50 Range s First trimester 0.26-2.[address] Seco nd trimester 0.55-2.73 Third trimester 0.43-2.91 RAC (test code Performing = RAC) Organization Information: Site ID: RGA Name: [facility] Address: [address] [place], [place] [address] Director: Rajinder Grant [facility] [id number] 05:23:00 Test Item Value Reference Range Interpretation Comments TSH (test code mIU/L Reference Ra nge > = 3016-3) or = 20 Years 0.40-4.50 Range s First trimester 0.26-2.66 Secon d trimester 0.55-2.73 Third trimester 0.43-2.91 RAC (test code Performing = RAC) Organization Information: Site ID: RGA Name: [facility] Address: [address] [place], [place] [address] Director: Rajinder Grant [facility]2022-06-11 05:23:00 Test Item Value Reference Range Interpretation Comments TSH (test code mIU/L Reference Ra nge > = 3016-3) or = 20 Years 0.40-4.50 Range s First trimester 0.26-2.66 Secon d trimester 0.55-2.73 Third trimester 0.43-2.91 RAC (test code Performing = RAC) Organization Information: Site ID: A Name: [facility] Address: [address] [place] [address] Director[facility]2022-06-11 05:23:00 Test Item Value Reference Range Interpretation Comments TSH (test code mIU/L Reference Ra nge > = 3016-3) or = 20 Years 0.40-4.50 Range s First trimester 0.26-2.66 Secon d trimester 0.55-2.73 Third trimester 0.43-2.91 RAC (test code Performing = RAC) Organization Information: Site ID: A Name: [facility] Address: [address] [place] [address] Director[facility]2022-06-11 05:23:00 Test Item Value Reference Range Interpretation Comments TSH (test code 1.97 mIU/L Reference Ra nge > = 3016-3) or = 20 Years 0.40-4.50 Range s First trimester 0.26-2.66 Secon d trimester 0.55-2.73 Third trimester 0.43-2.91 RAC (test code Performing = RAC) Organization Information: Site ID: A Name: [facility] Address: [address] [place], [place] [address] Director[facility]2022-06-11 05:23:00 Test Item Value Reference Range Interpretation Comments TSH (test code 1.97 mIU/L Reference Ra nge > = 3016-3) or = 20 Years 0.40-4.50 Range s First trimester 0.26-2.66 Secon d trimester 0.55-2.73 Third trimester 0.43-2.91 RAC (test code Performing = RAC) Organization Information: Site ID: KATERINA Name: [facility] Address: [address] [place] [address] Director: Rajinder [facility] RFLX MICR CULT IF [id number] 18:48:00 Test Item Value Reference Range Interpretation [...] LACT) 0.7 mmol/L 0.7-2.0 N LIVER FUNCTION [id number] 15:14:00 Test Item Value Reference Range Interpretation [...] U/L 38-126 N (test code = ALKP) [id number] 15:14:00 Test Item Value Reference Range Interpretation [...] suffi cient fordiagnosis of myocardial infarction. Tro myriamin results obtaine d by different assay s may vary.Evaluation of the extent of myoca rdial damage based onincreas e of troponin would be valid only if similar methodology is used.~~~~~~~~~~ ~~~~~~~~~~~~ ~~~~~~~~~~~~~~~ ~~~~~~~~~~~~ ~~~~~~~~~~ A PO SITIVE BIAS MAY OCCUR FOR P ATIENTS TAKING BIOTIN SUPPLEMENTS~~~~ ~~~~~~~~~~~~ ~~~~~~~~~~~~~~~ ~~~~~~~~~~~~ ~~~~~~~~~~~~~~~ ~ BASIC METABOLIC [id number] 15:14:00 Test Item Value Reference Range Interpretation [...] = HEMINDEX) - CT ABD PELVIS W/O [id number] 14:53:00 [facility] 1970 Sex: F FAX: Debo Gutierrez [place]: St: REG Name: HERSON JACKSON [facility] : 1970 Age/S: 51/F [address] Unit: [id number] Loc: [place] [address] Phys: Debo Gutierrez Acct: [id number] Dis Date: Status: REG ER PHONE #: [phone] Exam Date: 08/08/2021 1435 FAX #: [phone] Reason: flank pain EXAMS: CPT CODE: [id number] CT ABD PELVIS W/O CONT 60026 EXAM: CT abdomen and pelvis without contrast [...] Si gned Report (CONTINUED) FAX: Debo Gutierrez [place]: St: REG Name: HERSON JACKSON [facility] : 1970 Age/S: 51/F [address] Unit: [id number] Loc: [place] [address] Phys: Debo Gutierrez Acct: [id number] Dis Date: Status: REG ER PHONE #: [phone] Exam Date: 08/08/2021 1435 FAX #: Reason: flank pain EXAMS: CPT CODE: [id number] CT ABD PELVIS W/O CONT 71263 (Continued) nephrolithiasis . Evaluation of the bladder [...] 2 Signed Report (CONTINUED) FAX: Debo Gutierrez [place]: St: REG Name: HERSON JACKSON [facility] : 1970 Age/S: 51/F [address] Unit: [id number] Loc: [place] [address] Phys: Debo Gutierrez Acct: [id number] Dis Date: Status: REG ER PHONE #: [phone] Exam Date: FAX #: [phone] Reason: flank pain EXAMS: CPT CODE: [id number] CT ABD PELVIS W/O CONT 20699 (Continued) CC: Debo Gutierrez Technologist: Debo Ortiz; SCOTT BENAVIDES Trnscrd Dt/Tm: 08/08/2021 (0003) tSTEFANY Orig Print D/T: S: 08/08/2021 (1456 PAGE 3 Signed ReportCB W/AUTO [id number] 14:21:00 Test Item Value Reference Range Interpretation [...] 3/uL 0.0-0.1 N - XR CHEST 1 [id number] 13:50:00 [facility] 1970 Sex: F FAX: Debo Gutierrez [place]: St: PRE Name: HERSON JACKSON [facility] : 1970 Age/S: 51/F [address] Unit #: [id number] Loc: [place] [address] Phys: Debo Gutierrez Acct: [id number] Dis Date: Status: PRE ER PHONE #: [phone] Exam Date: 08/08/2021 1340 FAX #: [phone] Reason: CODESEPSIS EXAMS: CPT CODE: [id number] XR CHEST 1 V 82890 CHEST 1 VIEW: INDICATION: CODE SEPSIS COMPARISON: [...] PAGE 1 Signed Report FAX: Debo Gutierrez [place]: MC St: PRE --Name: [place] : 1970 Age/S: 51/F [address] Unit #: [id number] Loc: [place] [address] Phys: BrendaDebo Anjel [facility] Acct: [id number] Dis Date: Status: PRE ER PHONE #: [phone] Exam Date: 08/08/2021 1340 FAX #: [phone] Reason: CODE SEPSIS EXAMS: CPT CODE: [id number] XR CHEST 1 V 71821 (Continued) Orig Print D/T: S: 08/08/2021 (1354) PAGE 2 Signed ReportTHINPREP TIS PAP AND HPV mRNA E6/E7 REFLEX HPV 16,18/45 2021-06-19 18:43:00 Test Item Value Reference Interpretation Comments Range Clinical information None gi niurka (test code = 64918-1) Date of last NONE GIVEN menstrual period (test code = 8665-2) Prev. pap: (test code NONE G IVEN = 47743-8) Prev. bx: (test code NONE GI NIURKA = 68568-9) Source (test code = None giv en ) Statement of adequacy Satisf actory for (test code = 34965-3) evalua tion.Endocervi cony/transformat ion zone componentpresen t.Age and/or menstrua l status not prov ided Interpretation/result Negati ve for : (test code = intraepitheli al 60032-4) lesion or malignancy. Comment (test code = This Pa p test has ) been evaluated with computerassiste d technology. Review PMT, CT(ASCP)CT office inspector screening l ocation: (test code = 20553-1) [facility] [address], [facility] [address] Comment (test code = EXPLANA TORY NOTE: 2640275) The Pap is a screening test for [...] Detected Not Detected Methodo logy: code = 27633-4) Transcriptio n-Mediat ed Amplificatio n This assay dete cts E6/E7 viral messenger RNA ( mRNA) from 14high-ris k HPV types (16,18,31,33,35 ,39,4 5,51,52,56,58,5 9,66, 68). The analyt ical performance characteristics of thisassay have been determined by [employer].The modifications h ave not been cleare d or approvedby the FDA. This assay has been validated pursu antto the CLIA regula tions and is used forclinical purposes. For additional information, pl ease refer tohttp://educat ion.[employer] .[employer]/ faq/VVS408j7(Th is link if provide d for information/edu catio nal purposes on ly.) JACEK (test code = RAC) Performing Organization Information: Site ID: IG Name: [facility] Address: [address] [place] [address] Director: Dr. Rajinder Grant Site ID: RGA Name: [facility] Address: [address] [place] [address] Director: Rajinder Grant [facility]IN[facility] TIS PAP AND HPV mRNA E6/E7 REFLEX HPV 16,18/45 2021-06-19 18:43:00 Test Item Value Reference Interpretation Comments Range Clinical information None gi niurka (test code = 74942-6) Date of last NONE GIVEN menstrual period (test code = 8665-2) Prev. pap: (test code NONE G IVEN = 24883-1) Prev. bx: (test code NONE GI NIURKA = 91698-8) Source (test code = None giv en ) Statement of adequacy Satisf actory for (test code = 00622-2) evalua tion.Endocervi cony/transformat ion zone componentpresen t.Age and/or menstrua l status not prov ided Interpretation/result Negati ve for : (test code = intraepitheli al 42092-8) lesion or malignancy. Comment (test code = This Pa p test has ) been evaluated with computerassiste d technology. Review PMT, CT(ASCP)CT office inspector screening l ocation: (test code = 78345-6) [facility] [address], [facility] [address] Comment (test code = EXPLANA TORY NOTE: 8374483) The Pap is a screening test for [...] Detected Not Detected Methodo logy: code = 99987-2) Transcriptio n-Mediat ed Amplificatio n This assay dete cts E6/E7 viral messenger RNA ( mRNA) from 14high-ris k HPV types (16,18,31,33,35 ,39,4 5,51,52,56,58,5 9,66, 68). The analyt ical performance characteristics of thisassay have been determined by [employer].The modifications h ave not been cleare d or approvedby the FDA. This assay has been validated pursu antto the CLIA regula tions and is used forclinical purposes. For additional information, pl ease refer tohttp://educat ion.[employer] .com/ faq/TXQ113g7(Th is link if provide d for information/edu catio nal purposes on ly.) JACEK (test code = RAC) Performing Organization Information: Site ID: IG Name: [facility] Address: [address] [place] [address] Director: Dr. Rajinder Grant Site ID: KATERINA Name: [facility] Address: [address] [place] [address] Director: Rajinder Grant [facility]INPREP TIS PAP AND HPV mRNA E6/E7 REFLEX HPV 16,18/45 2021-06-19 18:43:00 Test Item Value Reference Interpretation Comments Range Clinical information None gi niurka (test code = 02304-4) Date of last NONE GIVEN menstrual period (test code = 8665-2) Prev. pap: (test code NONE G IVEN = 18175-3) Prev. bx: (test code NONE GI NIURKA = 83345-6) Source (test code = None giv en ) Statement of adequacy Satisf actory for (test code = 43534-9) evalua tion.Endocervi cony/transformat ion zone componentpresen t.Age and/or menstrua l status not prov ided Interpretation/result Negati ve for : (test code = intraepitheli al 82144-5) lesion or malignancy. Comment (test code = This Pa p test has ) been evaluated with computerassiste d technology. Review PMT, CT(ASCP)CT office inspector screening l ocation: (test code = 23377-8) [address], [place] [address] Comment (test code = EXPLANA TORY NOTE: 8961016) The Pap is a screening test for [...] Detected Not Detected Methodo logy: code = 80835-9) Transcriptio n-Mediat ed Amplificatio n This assay dete cts E6/E7 viral messenger RNA ( mRNA) from 14high-ris k HPV types (16,18,31,33,35 ,39,4 5,51,52,56,58,5 9,66, 68). The analyt ical performance characteristics of thisassay have been determined by [employer].The modifications h ave not been cleare d or approvedby the FDA. This assay has been validated pursu antto the CLIA regula tions and is used forclinical purposes. For additional information, pl ease refer tohttp://educat ion.[employer]/ faq/BND355e0(Th is link if provide d for information/edu catio nal purposes on ly.) RAC (test code = RAC) Performing Organization Information: Site ID: IG Name: [facility] Address: [address] [place] [address] Director: Dr. Rajinder Grant Site ID: RGA Name: [facility] Address: [address] [place] [address] Director: Rajinder Grant [facility]INPREP TIS PAP AND HPV mRNA E6/E7 REFLEX HPV 16,18/45 2021-06-19 18:43:00 Test Item Value Reference Interpretation Comments Range Clinical information None gi niurka (test code = 82300-6) Date of last NONE GIVEN menstrual period (test code = 8665-2) Prev. pap: (test code NONE G IVEN = 28159-8) Prev. bx: (test code NONE GI NIURKA = 14508-6) Source (test code = [place] giv en 35411-4) Statement of adequacy Satisf actory for (test code = 99680-6) evalua tion.Endocervi cony/transformat ion zone componentpresen t.Age and/or menstrua l status not prov ided Interpretation/result Negati ve for : (test code = intraepitheli al 32123-1) lesion or malignancy. Comment (test code = This Pa p test has ) been evaluated with computerassiste d technology. Review PMT, CT(ASCP)CT office inspector screening l ocation: (test code = 34728-3) [facility] [address], [place] [address] Comment (test code = EXPLANA TORY NOTE: 6309206) The Pap is a screening test for [...] Detected Not Detected Methodo logy: code = 19770-1) Transcriptio n-Mediat ed Amplificatio n This assay dete cts E6/E7 viral messenger RNA ( mRNA) from 14high-ris k HPV types (16,18,31,33,35 ,39,4 5,51,52,56,58,5 9,66, 68). The analyt ical performance characteristics of thisassay have been determined by [employer].The modifications h ave not been cleare d or approvedby the FDA. This assay has been validated pursu antto the CLIA regula tions and is used forclinical purposes. For additional information, pl ease refer tohttp://educat ion.[employer]/ faq/RVH968j6(Th is link if provide d for information/edu catio nal purposes on ly.) JACEK (test code = JACEK) Performing Organization Information: Site ID: IG Name: [facility] Address: [address] [place] [address] Director: Dr. Rajinder Grant Site ID: RGA Name: [facility] Address: [address] [place] [address] Director: Rajinder Grant [facility]INPREP TIS PAP AND HPV mRNA E6/E7 REFLEX HPV 16,18/45 2021-06-19 18:43:00 Test Item Value Reference Interpretation Comments Range Clinical information None gi niurka (test code = 57560-5) Date of last NONE GIVEN menstrual period (test code = 8665-2) Prev. pap: (test code NONE G IVEN = 01198-4) Prev. bx: (test code NONE GI NIURKA = 56734-9) Source (test code = None giv en ) Statement of adequacy Satisf actory for (test code = ) evalua tion.Endocervi cony/transformat ion zone componentpresen t.Age and/or menstrua l status not prov ided Interpretation/result Negati ve for : (test code = intraepitheli al 25847-8) lesion or malignancy. Comment (test code = This Pa p test has ) been evaluated with computerassiste d technology. Review PMT, CT(ASCP)CT office inspector screening l ocation: (test code = 37295-9) [facility] [address], [place] [address] Comment (test code = EXPLANA NONA NOTE: 5778958) The Pap is a screening test for [...] Detected Not Detected Methodo logy: code = 96752-7) Transcriptio n-Mediat ed Amplificatio n This assay dete cts E6/E7 viral messenger RNA ( mRNA) from 14high-ris k HPV types (16,18,31,33,35 ,39,4 5,51,52,56,58,5 9,66, 68). The analyt ical performance characteristics of thisassay have been determined by [employer].The modifications h ave not been cleare d or approvedby the FDA. This assay has been validated pursu antto the CLIA regula tions and is used forclinical purposes. For additional information, pl ease refer tohttp://educat ion.[employer] .com/ faq/QHQ787p7(Th is link if provide d for information/edu catio nal purposes on ly.) RAC (test code = RAC) Performing Organization Information: Site ID: IG Name: [facility] Address: [address] [place] [address] Director: Dr. Rajinder Grant Site ID: RGA Name: [facility] Address: [address] [place] [address] Director: Rajinder Grant [facility]INPREP TIS PAP AND HPV mRNA E6/E7 REFLEX HPV 16,18/45 2021-06-19 18:43:00 Test Item Value Reference Interpretation Comments Range Clinical information None gi niurka (test code = 64353-2) Date of last NONE GIVEN menstrual period (test code = 8665-2) Prev. pap: (test code NONE G IVEN = 34894-6) Prev. bx: (test code NONE GI NIURKA = 71291-9) Source (test code = None giv en 06983-4) Statement of adequacy Satisf actory for (test code = 25090-5) evalua tion.Endocervi cony/transformat ion zone componentpresen t.Age and/or menstrua l status not prov ided Interpretation/result Negati ve for : (test code = intraepitheli al 80239-7) lesion or malignancy. Comment (test code = This Pa p test has ) been evaluated with computerassiste d technology. Review PMT, CT(ASCP)CT office inspector screening l ocation: (test code = 75711-8) [facility] [address], [facility] [address] Comment (test code = EXPLANA TORY NOTE: 3739342) The Pap is a screening test for [...] Detected Not Detected Methodo logy: code = 20640-1) Transcriptio n-Mediat ed Amplificatio n This assay dete cts E6/E7 viral messenger RNA ( mRNA) from 14high-ris k HPV types (16,18,31,33,35 ,39,4 5,51,52,56,58,5 9,66, 68). The analyt ical performance characteristics of thisassay have been determined by [employer].The modifications h ave not been cleare d or approvedby the FDA. This assay has been validated pursu antto the CLIA regula tions and is used forclinical purposes. For additional information, pl ease refer tohttp://educat ion.[employer]/ faq/VGU763j1(Th is link if provide d for information/edu catio nal purposes on ly.) RAC (test code = RAC) Performing Organization Information: Site ID: IG Name: [facility] Address: [address] [place] [address] Director: Dr. Rajinder Grant Site ID: RGA Name: [facility] Address: [address] [place] [address] Director: Rjainder Grant [facility]INPREP TIS PAP AND HPV mRNA E6/E7 REFLEX HPV 16,18/45 2021-06-19 18:43:00 Test Item Value Reference Interpretation Comments Range Clinical information None gi niurka (test code = 14490-7) Date of last NONE GIVEN menstrual period (test code = 8665-2) Prev. pap: (test code NONE G IVEN = 13665-2) Prev. bx: (test code NONE GI NIURKA = 63777-6) Source (test code = None giv en ) Statement of adequacy Satisf actory for (test code = 83707-6) evalua tion.Endocervi cony/transformat ion zone componentpresen t.Age and/or menstrua l status not prov ided Interpretation/result Negati ve for : (test code = intraepitheli al 22355-7) lesion or malignancy. Comment (test code = This Pa p test has ) been evaluated with computerassiste d technology. Review PMT, CT(ASCP)CT office inspector screening l ocation: (test code = 70587-4) [facility] [address], [facility] [address] Comment (test code = EXPLANA TORY NOTE: 3023749) The Pap is a screening test for [...] Detected Not Detected Methodo logy: code = 81775-4) Transcriptio n-Mediat ed Amplificatio n This assay dete cts E6/E7 viral messenger RNA ( mRNA) from 14high-ris k HPV types (16,18,31,33,35 ,39,4 5,51,52,56,58,5 9,66, 68). The analyt ical performance characteristics of thisassay have been determined by [employer].The modifications h ave not been cleare d or approvedby the FDA. This assay has been validated pursu antto the CLIA regula tions and is used forclinical purposes. For additional information, pl ease refer tohttp://educat ion.[employer] .[employer]/ faq/ZSP460g5(Th is link if provide d for information/edu catio nal purposes on ly.) RAC (test code = RAC) Performing Organization Information: Site ID: IG Name: [facility] Address: [address] [place] [address] Director: Dr. Rajinder Grant Site ID: RGA Name: [facility] Address: [address] [place] [address] Director: Rajinder Grant [facility]INALYSIS, COMPLETE, WITH REFLEX TO [id number] 09:37:00 Test Item Value Reference Interpretation Comments Range Color, UA (test code YELLOW YELLOW = 5778-6) Appearance (test CLEAR CLEAR code = 5767-9) Specific gravity, 1.001-1.035 urine (test code = 5811-5) pH, urine (test code 5.0-8.0 = 5803-2) Glucose, urine (test NEGATIVE NEGATIVE code = 42920-8) Bilirubin, UA (test NEGATIVE NEGATIVE code = 5770-3) Ketones, UA (test NEGATIVE NEGATIVE code = 2514-8) Occult blood, urine NEGATIVE NEGATIVE (test code = 5794-3) Protein, UA (test NEGATIVE NEGATIVE code = 74565-5) Nitrite, UA (test NEGATIVE NEGATIVE code = [...] code = NONE SEEN See_Comment [Autom ated 07303-8) message] The sy stem which generated this result transmitted reference range : < OR = 2 /HPF. Th e reference range was not used to interpret this result as normal/abnormal . Squamous epithelial NONE SEEN See_Comment [Automa aydin cells, UA (test code message ] The system = 85966-3) which generated this result transmitted reference range [...] URINE, code = 630-4) ROUTINE Micro Number: [id number] Test Status: Fi nal Specimen Source [...] RAC) Organization Information: Site ID: RGA [facility] Address: [address] [place] [address] Director: Rajinder Grant Lab Interpretation Abnormal (test code = 35894-3) [facility] WITH REFLEX TO [id number] 09:37:00 Test Item Value Reference Interpretation Comments Range Color, UA (test code YELLOW YELLOW = 5778-6) Appearance (test CLEAR CLEAR code = 5767-9) Specific gravity, 1.001-1.035 urine (test code = 5811-5) pH, urine (test code 5.0-8.0 = 5803-2) Glucose, urine (test NEGATIVE NEGATIVE code = 39296-8) Bilirubin, UA (test NEGATIVE NEGATIVE code = 5770-3) Ketones, UA (test NEGATIVE NEGATIVE code = 2514-8) Occult blood, urine NEGATIVE NEGATIVE (test code = 5794-3) Protein, UA (test NEGATIVE NEGATIVE code = 62024-0) Nitrite, UA (test NEGATIVE NEGATIVE code = [...] code = NONE SEEN See_Comment [Autom ated 01710-3) message] The sy stem which generated this result transmitted reference range : < OR = 2 /HPF. Th e reference range was not used to interpret this result as normal/abnormal . Squamous epithelial NONE SEEN See_Comment [Automa aydin cells, UA (test code message ] The system = 91796-7) which generated this result transmitted reference range [...] URINE, code = 630-4) ROUTINE Micro Number: [id number] Test Status: Fi nal Specimen Source [...] RAC) Organization Information: Site ID: BEBA Name: [facility] Address: [address] [place] [address] Director: [facility] Interpretation Abnormal (test code = 97439-3) [facility], [facility] [id number] 09:37:00 Test Item Value Reference Interpretation Comments Range Color, UA (test code YELLOW YELLOW = 5778-6) Appearance (test CLEAR CLEAR code = 5767-9) Specific gravity, 1.001-1.035 urine (test code = 5811-5) pH, urine (test code 5.0-8.0 = 5803-2) Glucose, urine (test NEGATIVE NEGATIVE code = 39173-3) Bilirubin, UA (test NEGATIVE NEGATIVE code = 5770-3) Ketones, UA (test NEGATIVE NEGATIVE code = 2514-8) Occult blood, urine NEGATIVE NEGATIVE (test code = 5794-3) Protein, UA (test NEGATIVE NEGATIVE code = 55255-7) Nitrite, UA (test NEGATIVE NEGATIVE code = [...] code = NONE SEEN See_Comment [Autom ated 04934-0) message] The sy stem which generated this result transmitted reference range : < OR = 2 /HPF. Th e reference range was not used to interpret this result as normal/abnormal . Squamous epithelial NONE SEEN See_Comment [Automa aydin cells, UA (test code message ] The system = 34370-3) which generated this result transmitted reference range [...] URINE, code = 630-4) ROUTINE Micro Number: [id number] Test Status: Fi nal Specimen Source [...] = Performing RAC) Organization Information: Site ID: [facility] Name[facility] Address: [address] [place] [phone] Director: [facility] Interpretation Abnormal (test code = 71280-7) [facility], [facility] TO [id number] 09:37:00 Test Item Value Reference Interpretation Comments Range Color, UA (test code YELLOW YELLOW = 5778-6) Appearance (test CLEAR CLEAR code = 5767-9) Specific gravity, 1.001-1.035 urine (test code = 5811-5) pH, urine (test code 5.0-8.0 = 5803-2) Glucose, urine (test NEGATIVE NEGATIVE code = 61573-4) Bilirubin, UA (test NEGATIVE NEGATIVE code = 5770-3) Ketones, UA (test NEGATIVE NEGATIVE code = 2514-8) Occult blood, urine NEGATIVE NEGATIVE (test code = 5794-3) Protein, UA (test NEGATIVE NEGATIVE code = 37962-0) Nitrite, UA (test NEGATIVE NEGATIVE code = [...] code = NONE SEEN See_Comment [Autom ated 14681-0) message] The sy stem which generated this result transmitted reference range : < OR = 2 /HPF. Th e reference range was not used to interpret this result as normal/abnormal . Squamous epithelial NONE SEEN See_Comment [Automa aydin cells, UA (test code message ] The system = 15744-4) which generated this result transmitted reference range [...] URINE, code = 630-4) ROUTINE Micro Number: [id number] Test Status: Fi nal Specimen Source [...] RAC) Organization Information: Site ID: [facility] Address: [address] [place] [phone] Director: [facility] Interpretation Abnormal (test code = 42909-0) [facility] WITH [facility]FLEX TO [id number] 09:37:00 Test Item Value Reference Interpretation Comments Range Color, UA (test code YELLOW YELLOW = 5778-6) Appearance (test CLEAR CLEAR code = 5767-9) Specific gravity, 1.001-1.035 urine (test code = 5811-5) pH, urine (test code 5.0-8.0 = 5803-2) Glucose, urine (test NEGATIVE NEGATIVE code = 59713-4) Bilirubin, UA (test NEGATIVE NEGATIVE code = 5770-3) Ketones, UA (test NEGATIVE NEGATIVE code = 2514-8) Occult blood, urine NEGATIVE NEGATIVE (test code = 5794-3) Protein, UA (test NEGATIVE NEGATIVE code = 41928-2) Nitrite, UA (test NEGATIVE NEGATIVE code = [...] code = NONE SEEN See_Comment [Autom ated 73290-3) message] The sy stem which generated this result transmitted reference range : < OR = 2 /HPF. Th e reference range was not used to interpret this result as normal/abnormal . Squamous epithelial NONE SEEN See_Comment [Automa aydin cells, UA (test code message ] The system = 52733-7) which generated this result transmitted reference range [...] URINE, code = 630-4) ROUTINE Micro Number: [id number] Test Status: Fi nal Specimen Source [...] RAC) Organization Information: Site ID: [facility] Name: [facility] Address: [address] [place] [phone] Director: [facility] Interpretation Abnormal (test code = 97262-6) [facility] WITH REFLEX TO [id number] 09:37:00 Test Item Value Reference Interpretation Comments Range Color, UA (test code YELLOW YELLOW = 5778-6) Appearance (test CLEAR CLEAR code = 5767-9) Specific gravity, 1.001-1.035 urine (test code = 5811-5) pH, urine (test code 5.0-8.0 = 5803-2) Glucose, urine (test NEGATIVE NEGATIVE code = 49958-6) Bilirubin, UA (test NEGATIVE NEGATIVE code = 5770-3) Ketones, UA (test NEGATIVE NEGATIVE code = 2514-8) Occult blood, urine NEGATIVE NEGATIVE (test code = 5794-3) Protein, UA (test NEGATIVE NEGATIVE code = 76295-3) Nitrite, UA (test NEGATIVE NEGATIVE code = 5802-4) Leukocyte esterase, TRACE NEGATIVE A UA (test code = 5799-2) WBC, UA (test code = NONE SEEN See_Comment [Autom ated 1221-4) message] The sy stem which generated this result transmitted reference range : < OR = 5 /HPF. Th e reference range was not used to interpret this result as normal/abnormal . RBC, UA (test code = NONE SEEN See_Comment [Autom ated 68995-8) message] The sy stem which generated this result transmitted reference range : < OR = 2 /HPF. Th e reference range was not used to interpret this result as normal/abnormal . Squamous epithelial NONE SEEN See_Comment [Automa aydin cells, UA (test code message ] The system = 65409-1) which generated this result transmitted reference range [...] URINE, code = 630-4) ROUTINE Micro Number: [id number] Test Status: Fi nal Specimen Source [...] colonization. I f this patient is , plezina e refer to ACOG guidelines for appropriate screening and management of women. Comment: Erythromycin an d clindamycin are not recommended for treatment of urinary tract infections, but clindamycin may be useful for treatment in penicillin dusty rgic patients for rectovaginal colonization or for intrapartum prophylaxis if indicated. RAC (test code = Performing RAC) Organization Information: Site ID: [facility] Address: [address] [place] [phone] Director: [facility] Interpretation Abnormal (test code = 88209-2) [facility] WITH REFLEX TO [id number] 09:37:00 Test Item Value Reference Interpretation Comments Range Color, UA (test code YELLOW YELLOW = 5778-6) Appearance (test CLEAR CLEAR code = 5767-9) Specific gravity, 1.009 1.001-1.035 urine (test code = 5811-5) pH, urine (test code 7.0 5.0-8.0 = 5803-2) Glucose, urine (test NEGATIVE NEGATIVE code = 57453-7) Bilirubin, UA (test NEGATIVE NEGATIVE code = 5770-3) Ketones, UA (test NEGATIVE NEGATIVE code = 2514-8) Occult blood, urine NEGATIVE NEGATIVE (test code = 5794-3) Protein, UA (test NEGATIVE NEGATIVE code = 72914-8) Nitrite, UA (test NEGATIVE NEGATIVE code = [...] code = NONE SEEN See_Comment [Autom ated 63465-5) message] The sy stem which generated this result transmitted reference range : < OR = 2 /HPF. Th e reference range was not used to interpret this result as normal/abnormal . Squamous epithelial NONE SEEN See_Comment [Automa aydin cells, UA (test code message ] The system = 60303-8) which generated this result transmitted reference range [...] URINE, code = 630-4) ROUTINE Micro Number: [id number] Test Status: Fi nal Specimen Source [...] ion. If this patien t is , pleas e refer to ACOG guidelines for appropriate screening and management of women. Comment: Erythromycin an d clindamycin are not recommended for treatment of urinary tract infections, but clindamycin may be useful for treatment in penicillin dusty rgic patients for rectovaginal colonization or for intrapartum prophylaxis if indicated. RAC (test code = Performing RAC) Organization Information: Site ID: [facility] Address: [address] [place] [phone] Director: [facility] Interpretation Abnormal (test code = 19963-2) [facility] urinalysis [id number] 18:20:00 Test Item Value Reference Range Interpretation Comments Color urine, POC (test Straw code = 2802301) Clarity urine, POC (test Clear code = 7858245) Glucose urine, POC (test Negative Negative code = 9311153) Bilirubin urine, POC Negative Negative (test code = 3556324) Ketones urine, POC (test Negative Negative code = 9285368) Specific gravity urine, 1.005-1.030 POC (test code = 3850766) Blood urine, POC (test Trace Negative A code = 0656468) pH urine, POC (test code See_Comment [A utomated message] = 1796323) The system Stio generated this result transmitted ref erence range: 5.0, 5.5 , 6.0, 6.5, 7.0, 7.5, 8.0, 8.5. The refere nce range was not u sed to interpret this result as normal/abnor mal. Protein urine, POC (test Negative Negative code = 9593883) Urobilinogen urine, POC <2.0 See_Comment [Au tomated message] (test code = 3717234) The [employer] stem which generated this result transmitted ref erence range: <=2.0. T he reference range was not used to int erpret this result as normal/abnormal . Nitrite urine, POC (test Negative Negative code = 8092968) Leukocyte esterase Negative Negative urine, POC (test code = 1192156) Lab Interpretation (test Abnormal code = 09326-3) [facility] urinalysis [id number] 18:20:00 Test Item Value Reference Range Interpretation Comments Color urine, POC (test Straw code = 5692967) Clarity urine, POC (test Clear code = 7214850) Glucose urine, POC (test Negative Negative code = 3156991) Bilirubin urine, POC Negative Negative (test code = 3431954) Ketones urine, POC (test Negative Negative code = 8864140) Specific gravity urine, 1.005-1.030 POC (test code = 8917703) Blood urine, POC (test Trace Negative A code = 9447771) pH urine, POC (test code See_Comment [A utomated message] = 8034578) The system Stio generated this result transmitted ref erence range: 5.0, 5.5 , 6.0, 6.5, 7.0, 7.5, 8.0, 8.5. The refere nce range was not u sed to interpret this result as normal/abnor mal. Protein urine, POC (test Negative Negative code = 5014203) Urobilinogen urine, POC <2.0 See_Comment [Au tomated message] (test code = 0577312) The sy stem which generated this result transmitted ref erence range: <=2.0. T he reference range was not used to int erpret this result as normal/abnormal . Nitrite urine, POC (test Negative Negative code = 5838587) Leukocyte esterase Negative Negative urine, POC (test code = 1165188) Lab Interpretation (test Abnormal code = 67663-4) [facility] urinalysis [id number] 18:20:00 Test Item Value Reference Range Interpretation Comments Color urine, POC (test Straw code = 2728220) Clarity urine, POC (test Clear code = 3924212) Glucose urine, POC (test Negative Negative code = 4145788) Bilirubin urine, POC Negative Negative (test code = 8588949) Ketones urine, POC (test Negative Negative code = 4783224) Specific gravity urine, 1.005-1.030 POC (test code = 8665829) Blood urine, POC (test Trace Negative A code = 4441680) pH urine, POC (test code See_Comment [A utomated message] = 2921973) The system [employer] generated this result transmitted ref erence range: 5.0, 5.5 , 6.0, 6.5, 7.0, 7.5, 8.0, 8.5. The refere nce range was not u sed to interpret this result as normal/abnor mal. Protein urine, POC (test Negative Negative code = 8490227) Urobilinogen urine, POC <2.0 See_Comment [Au tomated message] (test code = 6344220) The sy stem which generated this result transmitted ref erence range: <=2.0. T he reference range was not used to int erpret this result as normal/abnormal . Nitrite urine, POC (test Negative Negative code = 7810346) Leukocyte esterase Negative Negative urine, POC (test code = 7659243) Lab Interpretation (test Abnormal code = 78943-2) [facility] urinalysis [id number] 18:20:00 Test Item Value Reference Range Interpretation Comments Color urine, POC (test Straw code = 8163266) Clarity urine, POC (test Clear code = 5938681) Glucose urine, POC (test Negative Negative code = 9210588) Bilirubin urine, POC Negative Negative (test code = 1790458) Ketones urine, POC (test Negative Negative code = 4704311) Specific gravity urine, 1.005-1.030 POC (test code = 4766173) Blood urine, POC (test Trace Negative A code = 7208097) pH urine, POC (test code See_Comment [A utomated message] = 2631825) The system Stio generated this result transmitted ref erence range: 5.0, 5.5 , 6.0, 6.5, 7.0, 7.5, 8.0, 8.5. The refere nce range was not u sed to interpret this result as normal/abnor mal. Protein urine, POC (test Negative Negative code = 8307347) Urobilinogen urine, POC <2.0 See_Comment [Au tomated message] (test code = 3030925) The sy stem which generated this result transmitted ref erence range: <=2.0. T he reference range was not used to int erpret this result as normal/abnormal . Nitrite urine, POC (test Negative Negative code = 1656218) Leukocyte esterase Negative Negative urine, POC (test code = 1436142) Lab Interpretation (test Abnormal code = 46855-4) [facility] urinalysis [id number] 18:20:00 Test Item Value Reference Range Interpretation Comments Color urine, POC (test Straw code = 3637244) Clarity urine, POC (test Clear code = 7284561) Glucose urine, POC (test Negative Negative code = 5599085) Bilirubin urine, POC Negative Negative (test code = 9651769) Ketones urine, POC (test Negative Negative code = 0074152) Specific gravity urine, 1.005-1.030 POC (test code = 4730691) Blood urine, POC (test Trace Negative A code = 0416080) pH urine, POC (test code See_Comment [A utomated message] = 1954315) The system Stio generated this result transmitted ref erence range: 5.0, 5.5 , 6.0, 6.5, 7.0, 7.5, 8.0, 8.5. The refere nce range was not u sed to interpret this result as normal/abnor mal. Protein urine, POC (test Negative Negative code = 1729939) Urobilinogen urine, POC <2.0 See_Comment [Au tomated message] (test code = 7157864) The sy stem which generated this result transmitted ref erence range: <=2.0. T he reference range was not used to int erpret this result as normal/abnormal . Nitrite urine, POC (test Negative Negative code = 9103985) Leukocyte esterase Negative Negative urine, POC (test code = 2911273) Lab Interpretation (test Abnormal code = 91177-1) [facility] urinalysis [id number] 18:20:00 Test Item Value Reference Range Interpretation Comments Color urine, POC (test Straw code = 9275688) Clarity urine, POC (test Clear code = 1067435) Glucose urine, POC (test Negative Negative code = 9820703) Bilirubin urine, POC Negative Negative (test code = 7626292) Ketones urine, POC (test Negative Negative code = 1766274) Specific gravity urine, 1.005-1.030 POC (test code = 3122541) Blood urine, POC (test Trace Negative A code = 8127574) pH urine, POC (test code See_Comment [A utomated message] = 6839157) The system [employer] generated this result transmitted ref erence range: 5.0, 5.5 , 6.0, 6.5, 7.0, 7.5, 8.0, 8.5. The refere nce range was not u sed to interpret this result as normal/abnor mal. Protein urine, POC (test Negative Negative code = 8094830) Urobilinogen urine, POC <2.0 See_Comment [Au tomated message] (test code = 4412678) The sy stem which generated this result transmitted ref erence range: <=2.0. T he reference range was not used to int erpret this result as normal/abnormal . Nitrite urine, POC (test Negative Negative code = 9661255) Leukocyte esterase Negative Negative urine, POC (test code = 4960970) Lab Interpretation (test Abnormal code = 89889-9) [facility] urinalysis [id number] 18:20:00 Test Item Value Reference Range Interpretation Comments Color urine, POC (test Straw code = 2584819) Clarity urine, POC (test Clear code = 4728492) Glucose urine, POC (test Negative Negative code = 0780139) Bilirubin urine, POC Negative Negative (test code = 9701525) Ketones urine, POC (test Negative Negative code = 3561297) Specific gravity urine, 1.015 1.005-1.030 POC (test code = 5123853) Blood urine, POC (test Trace Negative A code = 5525843) pH urine, POC (test code 8.0 See_Comment [A utomated message] = 5106397) The system Stio generated this result transmitted ref erence range: 5.0, 5.5 , 6.0, 6.5, 7.0, 7.5, 8.0, 8.5. The refere nce range was not u sed to interpret this result as normal/abnor mal. Protein urine, POC (test Negative Negative code = 0300152) Urobilinogen urine, POC <2.0 <=2.0 (test code = 3491859) Nitrite urine, POC (test Negative Negative code = 8964131) Leukocyte esterase Negative Negative urine, POC (test code = 9304268) Lab Interpretation (test Abnormal code = 76974-2) [facility] KgxmoektYSUP-IaO-8 (COVID-19) RNA [Presence] in Respiratory specimen by LATESHA with probe [id number] 09:55:01 Test Item Value Reference Range Interpretation Comments SARS-CoV-2 (COVID-19) RNA Not detected Not-Detected [Presence] in Respiratory specimen by LATESHA with probe detection (test code = 59518-7) Whether patient is employed in a healthcare setting (test code = 23247-9) Whether the patient has symptoms related to condition of interest (test code = 48479-3) Patient was hospitalized because of this condition (test code = 17238-5) Whether the patient was admitted to intensive care unit (ICU) for condition of interest (test code = 65880-7) Whether patient resides in a congregate care setting (test code = 77372-3) DESI DUEÑAS ESZERQPSORAB-TzN-8 (COVID-19) RNA [Presence] in Respiratory specimen by LATESHA with probe [id number] 03:07:44 Test Item Value Reference Range Interpretation Comments SARS-CoV-2 (COVID-19) RNA Not detected Not-Detected [Presence] in Respiratory specimen by LATESHA with probe detection (test code = 96034-6) Whether patient is employed in a healthcare setting (test code = 67371-3) Whether the patient has symptoms related to condition of interest (test code = 40101-7) Patient was hospitalized because of this condition (test code = 04494-9) Whether the patient was admitted to intensive care unit (ICU) for condition of interest (test code = 52941-3) Whether patient resides in a congregate care setting (test code = 44573-0) [facility]-CoV-2 (COVID-19) RNA [Presence] in Respiratory specimen by LATESHA with probe [id number] 02:34:50 Test Item Value Reference Range Interpretation Comments SARS-CoV-2 (COVID-19) RNA Not detected Not-Detected [Presence] in Respiratory specimen by LATESHA with probe detection (test code = 24672-1) Whether patient is employed in a healthcare setting (test code = 58984-0) Whether the patient has symptoms related to condition of interest (test code = 22367-9) Patient was hospitalized because of this condition (test code = 05300-8) Whether the patient was admitted to intensive care unit (ICU) for condition of interest (test code = 76875-6) Whether patient resides in a congregate care setting (test code = 46373-7) [facility]I [facility]-CoV-2 (COVID-19) RNA [Presence] in Respiratory specimen by LATESHA with probe [id number] 22:46:50 Test Item Value Reference Range Interpretation Comments SARS-CoV-2 (COVID-19) RNA Not detected Not-Detected [Presence] in Respiratory specimen by LATESHA with probe detection (test code = 47875-1) [facility]I [facility]-CoV-2 (COVID-19) RNA [Presence] in Respiratory specimen by LATESHA with probe [id number] 10:19:38 Test Item Value Reference Range Interpretation Comments SARS-CoV-2 (COVID-19) RNA Not detected Not-Detected [Presence] in Respiratory specimen by LATESHA with probe detection (test code = 40277-2) [facility]-CoV-[facility] (COVID-19) RNA [Presence] in Respiratory specimen by LATESHA with probe [id number] 00:17:03 Test Item Value Reference Range Interpretation Comments SARS-CoV-2 (COVID-19) RNA Not detected Not-Detected [Presence] in Respiratory specimen by LATESHA with probe detection (test code = 48988-6) [facility]-CoV-2 (COVID-19) RNA [Presence] in Respiratory specimen by LATESHA with probe [id number] 00:59:15 Test Item Value Reference Range Interpretation Comments SARS-CoV-2 (COVID-19) RNA Not detected Not-Detected [Presence] in Respiratory specimen by LATESHA with probe detection (test code = 23940-3) [place] [address]+ i-STAT [id number] 08:12:00 Test Item Value Reference [...] PELVIS WITHOUT CONTRAST, RENAL STONE PROTOCOL:Location code: [id number] HISTORY: Flank painCOMPARISON: CT abdomen and pelvis [...] Range Interpretation Comments COLOR (test code = [place] YELLOW A COLU) CLARITY (test code = [...] 11:03:05CT abdomen and pelvis with contrastLocation Code: [id number] HISTORY: Lower abdominal painCOMPARISON: NoneTechnique: Helical CT [...]
[2022-06-24 13:45] LABS: Absolute Lymphocytes (CBC) 1.4 K/uL (0.7-4.9); Hematocrit 43.8 % (36.0-45.0); Lymphocytes % 20.5 % (15.3-44.8); MCV 91.5 fL (80-100); MPV 7.6 fL (7.6-11.3); RBC Red Blood Cell Count 4.79 M/uL (3.86-4.86)
[2022-06-24 14:01] LABS: Potassium 4.4 mmol/L (3.5-5.1)
--- NOTE | 2022-06-24 14:31 | RAD REPORT ---
EXAM DESCRIPTION: CT - Chest For Pe Angio - 06/24/2022 2:20 pm CLINICAL HISTORY: Chest pain. sob, dysphagia COMPARISON: Abdomen Pelvis W Contrast dated 05/22/2022; Angio Aorta For Dissection dated 04/23/2022 TECHNIQUE: CT angiogram of the pulmonary arteries was performed with MIP. All CT scans are performed using dose optimization technique as appropriate and may include automated exposure control or mA/KV adjustment according to patient size. FINDINGS: No evidence of pulmonary thromboembolism. No acute aortic finding demonstrated. The lungs are clear. No significant pericardial or pleural fluid. No concerning bony finding. IMPRESSION: No evidence of pulmonary thromboembolism. No acute lung findings.
--- NOTE | 2022-06-24 14:33 | RAD REPORT ---
EXAM DESCRIPTION: CT - Soft Tissue Neck W/Contr CLINICAL HISTORY: dysphagia Neck pain, swelling COMPARISON: No comparisons TECHNIQUE All CT scans are performed using dose optimization technique as appropriate and may includ e automated exposure control or mA/KV adjustment according to patient size. FINDINGS: Nasopharyngeal tissues are normal in appearance. Fossa Rosenmller are normal. Parapharyngeal fat triangles are symmetric. Tongue base structures are normal. Epiglottis and aryepiglottic folds are normal. Piriform sinuses are well aerated. The vocal cords are normal in appearance. Salivary glands are normal in appearance. Normal sized thyroid gland. Upper lung flores are clear. Included intracranial contents are unremarkable. Postsurgical hardware in and postsurgical changes involve the cervicothoracic spine. IMPRESSION: No acute or worrisome abnormality detected. Postoperative cervicothoracic spine.
[2022-06-24] MEDS ORDERED: MAGNES/ALUMIN/SIMET 30ML UCUP ONE (14:58)
[2022-06-24] MEDS ORDERED: FAMOTIDINE 20 MG/2 ML VIAL IV ONE (14:59)
[2022-06-24] MEDS ORDERED: LIDOCAINE VISCOUS 2% SOLN 15 ML UDC ONE (14:59)
[2022-06-24] MEDS ORDERED: ONDANSETRON 4 MG/2 ML VIAL ONE (14:59)
--- NOTE | 2022-06-24 15:44 | ER ---
Nurse's Notes [facility] Name: Fany Meza Age: 52 yrs Sex: Female : 1970 Arrival Date: 06/24/2022 Time: 12:08 Bed DIS1 Private MD: Diagnosis: Dysphagia;Acute serous otitis media, right ear Presentation: 06/24 12:51 Chief complaint: Patient states: "Starting last night, I feel like my lower esophagus mb9 is swollen. I can't swallow anything. I tried to eat toast and I threw it up. I was able to keep a Smoothie down. It hurts when I take a deep breathe". Coronavirus screen: At this time, the client does not indicate any symptoms associated with coronavirus-19. Ebola Screen: No symptoms or risks identified at this time. Initial Sepsis Screen: Does the patient meet any 2 criteria? No. Patient's initial sepsis screen is negative. Does the patient have a suspected source of infection? No. Patient's initial sepsis screen is negative. Risk Assessment: Do you want to hurt yourself or someone else? Patient reports no desire to harm self or others. Onset of symptoms was June 24, 2022. 12:51 Method Of Arrival: Ambulatory mb9 12:51 Acuity: SHARAN 3 mb9 Historical: - Allergies: 12:53 No Known Allergies; mb9 - Home Meds: 12:53 amlodipine 5 mg tab 1 tab once daily [Active]; mb9 - PMHx: 12:53 Hypertensive disorder; Hep C , in remission; cervical cancer; mb9 - PSHx: 12:53 section; neck; mb9 - Immunization history:: Adult Immunizations up to date. - Social history:: Smoking status: Patient reports the use of cigarette tobacco products, denies chronic smoking, but will smoke occasionally. Assessment: 15:00 Reassessment: Patient is alert, oriented x 3, equal unlabored respirations, skin aa5 warm/dry/pink. Vital Signs: 12:51 BP 131 / 104; Pulse 86; Resp 20 S; Temp 97.9; Pulse Ox 100% ; Weight 79.38 kg; Height 5 aa5 ft. 4 in. ; Pain 0/10; 12:51 Body Mass Index 30.04 (79.38 kg, 162.56 cm) aa5 12:51 Pain Scale: Adult aa5 ED Course: 12:08 Patient arrived in ED. rg4 12:53 Triage completed. mb9 12:54 Arm band placed on. mb9 13:10 Phong Johnson PA is PHCP. evam 13:10 Karl Dykes MD is Attending Physician. jmm 13:38 Troponin High Sensitivity Sent. bc6 13:38 BMP Sent. bc6 13:38 CBC with Diff Sent. bc6 13:38 Initial lab(s) drawn, by ar, sent to lab. Inserted saline lock: 20 gauge in right bc6 antecubital area, using aseptic technique. 14:22 Soft Tissue Neck W/Contr CT In Process Unspecified. EDMS 14:22 Chest For PE Angio CT In Process Unspecified. EDMS 15:43 Taz Payton MD is Referral Physician. [facility] 15:43 Jean Pierre Bui MD is Referral Physician. [facility] Administered Medications: 15:06 Drug: GI Cocktail without - (Maalox PO Suspension 30 ml, Lidocaine Mucous aa5 Membrane Liquid 2 % 15 ml) Route: PO; 15:07 Drug: Ondansetron IVP 4 mg Route: IVP; Site: right antecubital; aa5 15:07 Drug: Famotidine IVP 20 mg Route: IVP; Site: right antecubital; aa5 Outcome: 15:44 Discharge ordered by . phil Signatures: Dispatcher [employer] EDMO Phong Johnson PA PA [facility] Kiara Holland, RN RN aa5 Katerin Celeste rg4 Christina Ashton RN RN mb9 Radha Seals 6 Corrections: (The following items were deleted from the chart) 15:07 12:51 BP 131 / 104; Pulse 20bpm; Resp 86bpm; Pulse Ox 100%; Temp 97.9F; 79.38 kg; aa5 Height 5 ft. 4 in.; BMI: 30.0; Pain 0/10, Adult; mb9
--- NOTE | 2022-06-24 15:44 | EDPHYS ---
Physician Documentation [facility] Name: Fany Meza Age: 52 yrs Sex: Female : 1970 Arrival Date: 06/24/2022 Time: 12:08 Bed DIS1 Private MD: ED Physician Karl Dykes HPI: 06/24 15:32 This 52 yrs old Female presents to ER via Ambulatory with complaints of Difficulty jmm Swallowing. 15:32 The patient presents with sore throat. Onset: The symptoms/episode began/occurred just jmm prior to arrival, 1 day(s) ago. 15:39 Is a 52-year-old female with history of hypertension, cervical cancer the presents jmm emerged part with complaints of painful swallowing pain which radiates to the right ear. Denies fever. Denies vomiting. Patient states that she has pain when even drinking liquid. Denies shortness of breath.. Historical: - Allergies: 12:53 No Known Allergies; mb9 - Home Meds: 12:53 amlodipine 5 mg tab 1 tab once daily [Active]; mb9 - PMHx: 12:53 Hypertensive disorder; Hep C , in remission; cervical cancer; mb9 - PSHx: 12:53 section; neck; mb9 - Immunization history:: Adult Immunizations up to date. - Social history:: Smoking status: Patient reports the use of cigarette tobacco products, denies chronic smoking, but will smoke occasionally. ROS: 15:39 Constitutional: Negative for fever, chills, and weight loss. jmm 15:39 ENT: Positive for ear pain, sore throat. 15:39 All other systems are negative. Exam: 15:39 Constitutional: This is a well developed, well nourished patient who is awake, alert, jmm and in no acute distress. Head/Face: atraumatic. Eyes: EOMI, no conjunctival erythema appreciated 15:39 Neck: Trachea midline, Supple Chest/axilla: Normal chest wall appearance and motion. Cardiovascular: Regular rate and rhythm. No edema appreciated Respiratory: Normal respirations, no respiratory distress appreciated Abdomen/GI: Non distended Back: Normal ROM Skin: General appearance color normal MS/ Extremity: Moves all extremities, no obvious deformities appreciated, no edema noted to the lower extremities Neuro: Awake and alert Psych: Behavior is normal, Mood is normal, Patient is cooperative and pleasant 15:39 ENT: TM's: erythema, that is moderate, on the right, Posterior pharynx: erythema, that is mild. Vital Signs: 12:51 BP 131 / 104; Pulse 86; Resp 20 S; Temp 97.9; Pulse Ox 100% ; Weight 79.38 kg; Height 5 aa5 ft. 4 in. ; Pain 0/10; 12:51 Body Mass Index 30.04 (79.38 kg, 162.56 cm) aa5 12:51 Pain Scale: Adult aa5 MDM: 13:15 Patient medically screened. [facility] 15:40 Differential diagnosis: Esophagitis, pharyngitis, otitis media, obstruction, jm Boerhaave's. Data reviewed: vital signs, nurses notes, lab test result(s), radiologic studies, CT scan. I considered the following discharge prescriptions or medication management in the emergency department Medications were administered in the Emergency Department. See MAR. Counseling: I had a detailed discussion with the patient and/or guardian regarding: the historical points, exam findings, and any diagnostic results supporting the discharge/admit diagnosis, lab results, radiology results, the need for outpatient follow up, to return to the emergency department if symptoms worsen or persist or if there are any questions or concerns that arise at home. ED course: Symptoms have mildly improved in the ED. Patient advised to follow with GI for further evaluation otherwise given strict return precautions. Patient understood agrees plan of care.. 06/24 13:15 Order name: CBC with Diff; Complete Time: 13:51 [facility] 06/24 13:15 Order name: BMP; Complete Time: 14:03 [facility] 06/24 13:15 Order name: Saline Lock; Complete Time: 13:38 [facility] 06/24 13:17 Order name: Soft Tissue Neck W/Contr CT; Complete Time: 14:41 [facility] 06/24 13:17 Order name: Chest For PE Angio CT; Complete Time: 14:41 [facility] 06/24 13:18 Order name: Troponin High Sensitivity; Complete Time: 14:12 [facility] Administered Medications: 15:06 Drug: GI Cocktail without - (Maalox PO Suspension 30 ml, Lidocaine Mucous aa5 Membrane Liquid 2 % 15 ml) Route: PO; 15:07 Drug: Ondansetron IVP 4 mg Route: IVP; Site: right antecubital; aa5 15:07 Drug: Famotidine IVP 20 mg Route: IVP; Site: right antecubital; aa5 Disposition Summary: 06/24/22 15:44 Discharge Ordered Location: Home [facility] Condition: Stable jm Diagnosis - Dysphagia jmm - Acute serous otitis media, right ear jm Followup: [facility] - With: Taz Payton MD - When: 2 - 3 days - Reason: Recheck today's complaints, Continuance of care, Re-evaluation by your physician Followup: [facility]a - With: Jean Pierre Bui MD - When: 2 - 3 days - Reason: Recheck today's complaints, Continuance of care, Re-evaluation by your physician Forms: - Medication Reconciliation Form [facility] - Thank You Letter [facility] - Antibiotic Education [facility] - Prescription Opioid Use [facility] Signatures: Dispatcher [employer] EDPhong Torres PA PA jmm Calderon, Audri, RN RN aa5 Christina Ashton RN RN mb9
[2022-06-24 22:22] VITALS: BP 131/104; TEMP 97.9; O2SAT 100
== END 2022-06-24 15:57 | disposition home or self-care (01) ==
LOC: ER 12:04
DX: R13.10 Dysphagia, unspecified (principal); H65.01 Acute serous otitis media, right ear; I10 Essential (primary) hypertension; F17.210 Nicotine dependence, cigarettes, uncomplicated; Z85.41 Personal history of malignant neoplasm of cervix uteri
CPT/HCPCS: 85025; 80048; 36415; 84484; 70491; 71275; Q9967; J2405

== ENCOUNTER 2022-08-14 10:08 | Emergency (ER) | payer OTHER ==
--- OUTSIDE RECORDS SUMMARY | 2022-08-14 10:23 | XMS REPORT | Continuity of Care Document ---
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 00:00: 04:59 mouth [facility] 5-325 mg 00 :00 every 6 l per tablet (six) hours as needed for moderate pain or severe pain for up to 2 days .acute pain. Max Daily Amount: 4 tablets HYDROcodone 2021-0 No 1{tbl} Q6H Take 1 [facility] -acetaminop 6-23 06-[address] hen ([facility]) 00:00: 04:59 mouth [facility] 5-325 mg 00 :00 every 6 l per tablet (six) hours as needed for moderate pain or severe pain for up to 2 days .acute pain. Max Daily Amount: 4 tablets HYDROcodone 2021-0 No 1{tbl} Q6H Take 1 [facility] -acetaminop 6-21 06-[address] hen ([facility]) 00:00: 00:00 mouth [facility] 5-325 mg 00 :00 every 6 l per tablet (six) hours as needed for moderate pain or severe pain for up to 2 days .acute pain. Max Daily Amount: 4 tablets HYDROcodone 2-0 2021- No [id number] 1{tbl} Q6H Take 1 [facility] -acetaminop 6-21 06-[address] [facility] ([facility]) 00:00: 00:00 mouth [facility] 5-325 mg 00 :00 every 6 l per tablet (six) hours as needed for moderate pain or severe pain for up to 2 days .acute pain. Max Daily Amount: 4 tablets HYDROcodone 2-0 2021- No [id number] 1{tbl} Q6H Take 1 [facility] -acetaminop 6-21 06-[address] hen ([facility]) 00:00: 00:00 mouth [facility] 5-325 mg 00 :00 every 6 l per tablet (six) hours as needed for moderate pain or severe pain for up to 2 days .acute pain. Max Daily Amount: 4 tablets HYDROcodone 2021-0 2021- No [id number] 1{tbl} Q6H Take 1 [facility] -acetaminop 6-21 06-[address] [facility] ([facility]) 00:00: 00:00 mouth [facility] 5-325 mg 00 :00 every 6 l per tablet (six) hours as needed for moderate pain or severe pain for up to 2 days .acute pain. Max Daily Amount: 4 tablets HYDROcodone 2-0 2021- No [id number] 1{tbl} Q6H Take 1 [facility] -acetaminop 6-21 06-[address] [facility] ([facility]) 00:00: 00:00 mouth [facility] 5-325 mg 00 :00 every 6 l per tablet (six) hours as needed for moderate pain or severe pain for up to 2 days .acute pain. Max Daily Amount: 4 tablets HYDROcodone 2022-0 2021- No [id number] 1{tbl} Q6H Take 1 [facility] -acetaminop 6-21 06-[address] [facility] ([facility]) 00:00: 00:00 mouth [facility] 5-325 mg 00 :00 every 6 l per tablet (six) hours as needed for moderate pain or severe pain for up to 2 days .acute pain. Max Daily Amount: 4 tablets HYDROcodone 2022-0 2022- No 1{tbl} Q6H Take 1 [facility] -acetaminop 6-21 06-[address] [facility] ([facility]) 00:00: 00:00 mouth [facility] 5-325 mg 00 :00 every 6 l per tablet (six) hours as needed for moderate pain or severe pain for up to 2 days .acute pain. Max Daily Amount: 4 tablets HYDROcodone 2021-0 2021- No 1{tbl} Q6H Take 1 [facility] -acetaminop 6-21 06-[address] [facility] ([facility]) 00:00: 00:00 mouth [facility] 5-325 mg 00 :00 every 6 l per tablet (six) hours as needed for moderate pain or severe pain for up to 2 days .acute pain. Max Daily Amount: 4 tablets HYDROcodone 2021-0 2021- 1{tbl} Q6H Take 1 [facility] -acetaminop 6-21 06-[address] [facility] ([facility]) 00:00: 00:00 mouth [facility] 5-325 mg 00 :00 every 6 l per tablet (six) hours as needed for moderate pain or severe pain for up to 2 days .acute pain. Max Daily Amount: 4 tablets HYDROcodone 2021-0 2021- No 1{tbl} Q6H Take 1 [facility] -acetaminop 6-21 06-[address] OP3Nvoice ([place]) 00:00: 00:00 mouth [facility] 5-325 mg 00 :00 every 6 l per tablet (six) hours as needed for moderate pain or severe pain for up to 2 days .acute pain. Max Daily Amount: 4 tablets HYDROcodone 2021-0 2021- No 1{tbl} Q6H Take 1 [facility] -acetaminop 6-21 06-[address] [facility] ([facility]) 00:00: 00:00 mouth [facility] 5-325 mg 00 :00 every 6 l per tablet (six) hours as needed for moderate pain or severe pain for up to 2 days .acute pain. Max Daily Amount: 4 tablets HYDROcodone 2021-0 2021- No 1{tbl} Q6H Take 1 [facility] -acetaminop 6-21 06-[address] [facility] ([facility]) 00:00: 00:00 mouth [facility] 5-325 mg 00 :00 every 6 l per tablet (six) hours as needed for moderate pain or severe pain for up to 2 days .acute pain. Max Daily Amount: 4 tablets HYDROcodone 2022-0 2021- No [id number] 1{tbl} Q6H Take 1 [facility] -acetaminop 6-21 06-[address] [facility] ([facility]) 00:00: 00:00 mouth [facility] 5-325 mg 00 :00 every 6 l per tablet (six) hours as needed for moderate pain or severe pain for up to 2 days .acute pain. Max Daily Amount: 4 tablets HYDROcodone 2022-0 2021- No [id number] 1{tbl} Q6H Take 1 [facility] -acetaminop 6-21 06-[address] [facility] ([facility]) 00:00: 00:00 mouth [facility] 5-325 mg 00 :00 every 6 l per tablet (six) hours as needed for moderate pain or severe pain for up to 2 days .acute pain. Max Daily Amount: 4 tablets HYDROcodone 2-0 2021- No [id number] 1{tbl} Q6H Take 1 [facility] -acetaminop 6-21 06-[address] OP3Nvoice ([place]) 00:00: 00:00 mouth [facility] 5-325 mg 00 :00 every 6 l per tablet (six) hours as needed for moderate pain or severe pain for up to 2 days .acute pain. Max Daily Amount: 4 tablets HYDROcodone 2-0 2021- No [id number] 1{tbl} Q6H Take 1 [facility] -acetaminop 6-21 06-[address] OP3Nvoice ([place]) 00:00: 00:00 mouth [facility] 5-325 mg 00 :00 every 6 l per tablet (six) hours as needed for moderate pain or severe pain for up to 2 days .acute pain. Max Daily Amount: 4 tablets HYDROcodone 2022-0 2021- No [id number] 1{tbl} Q6H Take 1 [facility] -acetaminop 6-21 06-[address] OP[facility] ([place]) 00:00: 00:00 mouth [facility] 5-325 mg 00 :00 every 6 l per tablet (six) hours as needed for moderate pain or severe pain for up to 2 days .acute pain. Max Daily Amount: 4 tablets HYDROcodone 2022-0 2021- No [id number] 1{tbl} Q6H Take 1 [facility] -acetaminop 6-21 06-[address] [facility] ([facility]) 00:00: 00:00 mouth [facility] 5-325 mg 00 :00 every 6 l per tablet (six) hours as needed for moderate pain or severe pain for up to 2 days .acute pain. Max Daily Amount: 4 tablets HYDROcodone 2022-0 2021- No [id number] 1{tbl} Q6H Take 1 [facility] -acetaminop 6-21 06-[address] [facility] ([facility]) 00:00: 00:00 mouth [facility] 5-325 mg 00 :00 every 6 l per tablet (six) hours as needed for moderate pain or severe pain for up to 2 days .acute pain. Max Daily Amount: 4 tablets HYDROcodone 2-0 2021- No [id number] 1{tbl} Q6H Take 1 [facility] -acetaminop 6-21 06-[address] [facility] ([facility]) 00:00: 00:00 mouth [facility] 5-325 mg 00 :00 every 6 l per tablet (six) hours as needed for moderate pain or severe pain for up to 2 days .acute pain. Max Daily Amount: 4 tablets HYDROcodone 2-0 2021- No [id number] 1{tbl} Q6H Take 1 [facility] -acetaminop 6-21 06-[address] [facility] ([facility]) 00:00: 00:00 mouth [facility] 5-325 mg 00 :00 every 6 l per tablet (six) hours as needed for moderate pain or severe pain for up to 2 days .acute pain. Max Daily Amount: 4 tablets HYDROcodone 2022-0 2021- No [id number] 1{tbl} Q6H Take 1 [facility] -acetaminop 6-21 06-[address] [facility] ([facility]) 00:00: 00:00 mouth [facility] 5-325 mg 00 :00 every 6 l per tablet (six) hours as needed for moderate pain or severe pain for up to 2 days .acute pain. Max Daily Amount: 4 tablets HYDROcodone 2022-0 2021- No [id number] 1{tbl} Q6H Take 1 [facility] -acetaminop 6-21 06-[address] [facility] ([facility]) 00:00: 00:00 mouth [facility] 5-325 mg 00 :00 every 6 l per tablet (six) hours as needed for moderate pain or severe pain for up to 2 days .acute pain. Max Daily Amount: 4 tablets HYDROcodone 2022-0 2022- No [id number] 1{tbl} Q6H Take 1 [facility] -acetaminop 6-21 06-[address] [facility] ([facility]) 00:00: 00:00 mouth [facility] 5-325 mg 00 :00 every 6 l per tablet (six) hours as needed for moderate pain or severe pain for up to 2 days .acute pain. Max Daily Amount: 4 tablets HYDROcodone 2022-0 2022- No [id number] 1{tbl} Q6H Take 1 [facility] -acetaminop 6-21 -[address] OP[facility]voice ([place]) 00:00: 00:00 mouth [facility] 5-325 mg 00 :00 every 6 l per tablet (six) hours as needed for moderate pain or severe pain for up to 2 days .acute pain. Max Daily Amount: 4 tablets HYDROcodone 2022-0 2022- No [id number] 1{tbl} Q6H Take 1 [facility] -acetaminop 6-21 -[address] [facility] ([facility]) 00:00: 00:00 mouth [facility] 5-325 mg 00 :00 every 6 l per tablet (six) hours as needed for moderate pain or severe pain for up to 2 days .acute pain. Max Daily Amount: 4 tablets HYDROcodone 2022-0 2022- [place] [id number] 1{tbl} Q6H Take 1 [facility] -acetaminop 6-21 -[address] [id number] ([facility]) 00:00: 00:00 mouth [facility] 5-325 mg [...] 00 :00 by mouth l daily. amLODIPine 2- No 5mg QD Take 1 Meth [...] QD Take 1 [facility] (NORVASC) 5 09-11 tablet (5 st mg tablet 00:00: 00:00 [...] 00 :00 by mouth l daily. amLODIPine 0 2021- No 5mg QD Take 1 Meth [...] DAILY WITH MEALS meclizine 2021- No 25mg Q.[id number] Take 1 [facility] ([facility]IVERT) 08-26 [id number] tablet (25 st 25 mg 00:00: 00:00 3D mg total) [facility] tablet 00 :00 by mouth 3 l (three) times a day as needed for dizziness for up to 30 days. meclizine 2021- No 25mg Q.[id number] Take 1 [facility] ([facility]IVERT) 08-26 [id number] tablet (25 st 25 mg 00:00: 00:00 3D mg total) [facility] a tablet 00 :00 by mouth 3 l (three) times a day as needed for dizziness for up to 30 days. meclizine 2021- No 25mg Q.[id number] Take 1 [facility] ([facility]ERT) 17 -10 [id number] tablet (25 st 25 mg 00:00: 00:00 3D mg total) [facility] a tablet 00 :00 by mouth 3 l (three) times a day as needed for dizziness for up to 30 days. meclizine 2021- No 25mg Q.[id number] Take 1 [facility] ([facility]) 08-26-10 [id number] tablet (25 st 25 mg 00:00: 00:00 3D mg total) [facility] a tablet 00 :00 by mouth 3 l (three) times a day as needed for dizziness for up to 30 days. meclizine 2021- No 25mg Q.07698000 Take 1 [facility] ([facility]) 08-26-10 [id number] tablet (25 st 25 mg 00:00: 00:00 3D mg total) [facility] a tablet 00 :00 by mouth 3 l (three) times a day as needed for dizziness for up to 30 days. meclizine 2021- No 25mg Q.37247935 Take 1 [facility] ([facility]) 08-26-10 [id number] tablet (25 st 25 mg 00:00: 00:00 3D mg total) [facility] a tablet 00 :00 by mouth 3 l (three) times a day as needed for dizziness for up to 30 days. meclizine 2021- No 25mg Q.83735374 Take 1 [facility] ([facility]) 08-26-10 [id number] tablet (25 st 25 mg 00:00: 00:00 3D mg total) [facility] a tablet 00 :00 by mouth 3 l (three) times a day as needed for dizziness for up to 30 days. meclizine 2021-2021- No 25mg Q.00536641 Take 1 [facility] (ANTIVERT) 517 -10 [id number] tablet (25 st 25 mg 00:00: 00:00 3D mg total) Hospit a tablet 00 :00 by mouth 3 l (three) times a day as needed for dizziness for up to 30 days. meclizine 2021- No 25mg Q.[id number] Take 1 [facility] ([facility]IVERT) 517 06-10 [id number] tablet (25 st 25 mg 00:00: 00:00 [...] a day for 60 days. doxycycline 2021-0 2022- No 100mg Take 100 [...] :00 (two) l times a day. doxycycline 100mg Take 100 [facility] (VIBRAMYCIN 4-30 06-[address] ) 100 MG 00:00: 00:00 mouth. Hospit a capsule 00 :00 l metroNIDAZO No 500mg Q.5D Take 500 [facility] (FLAGYL) 4-30 06-[address] 500 MG 00:00: 00:00 mouth 2 [facility]osp[facility] tablet 00 :00 (two) l times a day. acetaminoph 1{tbl} Q6H Take 1-2 [facility] en-codeine [...] 28 1{tbl} Q6H Take 1-2 [facility] en-codeine - 05-[address] (TYLENOL 00:00: 04:59 mouth [facility] WITH 00 :00 every 6 l CODEINE #3) (six) 300-30 mg hours as per tablet needed for moderate pain for up to 5 days .acute pain. acetaminoph 1{tbl} Q6H Take 1-2 [facility] en-codeine - 05-[address] (TYLENOL 00:00: 04:59 mouth [facility] WITH 00 :00 every 6 l CODEINE #3) (six) 300-30 mg hours as per tablet needed for moderate pain for up to 5 days .acute pain. acetaminoph 1{tbl} Q6H Take 1-2 [facility] en-codeine 08-06-[address] (TYLENOL 00:00: 04:59 mouth [facility] WITH 00 :00 every 6 l CODEINE #3) (six) 300-30 mg hours as per tablet needed for moderate pain for up to 5 days .acute pain. acetaminoph 1{tbl} Q6H Take 1-2 [facility] en-codeine 08-06-[address] (TYLENOL 00:00: 04:59 mouth [facility] WITH 00 :00 every 6 l CODEINE #3) (six) 300-30 mg hours as per tablet needed for moderate pain for up to 5 days .acute pain. amoxicillin No [id number] 500mg Q.5D Take 1 [facility] (AMOXIL) 07-[address] 500 MG 00:00: 04:59 (500 mg [facility]osp[facility] tablet 00 :00 total) by l mouth 2 (two) times a day for 7 days. amoxicillin No [id number] 500mg Q.5D Take 1 [facility] (AMOXIL) 07-[address] 500 MG 00:00: 04:59 (500 mg [facility]osp[facility] tablet 00 :00 total) by l mouth 2 (two) times a day for 7 days. amoxicillin 2021- No [id number] 500mg Q.5D Take 1 [facility] (AMOXIL) 07-[address] 500 MG 00:00: 04:59 (500 mg [facility]osp[facility] tablet 00 :00 total) by l mouth 2 (two) times a day for 7 days. amoxicillin 2021- No [id number] 500mg Q.5D Take 1 [facility] (AMOXIL) 07-[address] 500 MG 00:00: 04:59 (500 mg [facility]osp[facility] tablet 00 :00 total) by l mouth 2 (two) times a day for 7 days. amoxicillin 2021- No [id number] 500mg Q.5D Take 1 [facility] (AMOXIL) 07-[address] 500 MG 00:00: 04:59 (500 mg [facility]osp[facility] tablet 00 :00 total) by l mouth 2 (two) times a day for 7 days. amoxicillin 2021- No [id number] 500mg Q.5D Take 1 [facility] (AMOXIL) 07-[address] 500 MG 00:00: 04:59 (500 mg [facility]osp[facility] tablet 00 :00 total) by l mouth 2 (two) times a day for 7 days. amoxicillin 2021-2021- No [id number] 500mg Q.5D Take 1 [facility] (AMOXIL) 07-[address] 500 MG 00:00: 04:59 (500 mg [facility]osp[facility] tablet 00 :00 total) by l mouth 2 (two) times a day for 7 days. amoxicillin 2021- No [id number] 500mg Q.5D Take 1 [facility] (AMOXIL) 07-24 [...] QD Take 1 [facility] (NORVASC) 5 4-02 tablet (5 st mg tablet 00:00: 00:00 mg total) [facility] 00 :00 by mouth l daily. amLODIPine 2022-0 2022- No 5mg QD Take 1 [facility] (NORVASC) 5 07-15-02 tablet (5 st mg tablet 00:00: 00:00 mg total) [facility] 00 :00 by mouth l daily. amLODIPine 2-0 2022- No 5mg QD Take 1 [facility] (NORVASC) 5 07-15- tablet (5 st mg tablet 00:00: 00:00 mg total) [facility] 00 :00 by mouth l daily. amLODIPine 2022-0 2022- No 5mg QD Take 1 [facility] (NORVASC) 5 07-15-02 tablet (5 st mg tablet 00:00: 00:00 mg total) [facility] 00 :00 by mouth l daily. amLODIPine 2-0 2022- No 5mg QD Take 1 [facility] (NORVASC) 5 07-15-02 tablet (5 st mg tablet 00:00: 00:00 mg total) [facility] 00 :00 by mouth l daily. amLODIPine 2-0 2022- No 5mg QD Take 1 [facility] (NORVASC) 5 07-15-02 tablet (5 st mg tablet 00:00: 00:00 mg total) [facility] 00 :00 by mouth l daily. amLODIPine 2022-0 2022- No 5mg QD Take 1 [facility] (NORVASC) 5 07-15 06-02 tablet (5 st mg tablet 00:00: [...] 500mg Q.5D Take 1 [facility] (Naprosyn) 30 -[address] 500 MG 00:00: 00:00 (500 mg [facility]ospita tablet 00 :00 total) by l mouth 2 (two) times a day with meals. ibuprofen 2021-0 2021- No 800mg Q6H Take 1 [facility] (ADVIL) 800 06-30-[address] MG tablet 00:00: 04:59 (800 mg [facility] 00 :00 total) by l mouth every 6 (six) hours as needed for mild pain for up to 30 days. benzonatate 2021-0 2021- No 100mg Q8H Take 1 [facility] (TESSALON) -31 07-[address] 100 MG 00:00: 04:59 [...] pain for up to 30 days. benzonatate 0 2021- No 100mg Q8H Take 1 [facility] (TESSALON) 06-[address] 100 MG 00:00: 04:59 (100 mg [facility]ospita capsule 00 :00 total) by l mouth every 8 (eight) hours for 30 days. amoxicillin 2021- No [id number] 500mg Q.5D Take 1 [facility] (AMOXIL) 06-[address] 500 MG 00:00: 04:59 (500 mg [facility]osp[facility] tablet 00 :00 total) by l mouth in the morning and 1 tablet (500 mg total) before bedtime. Do all this for 7 days. amoxicillin 2021- No [id number] 500mg Q.5D Take 1 [facility] (AMOXIL) 06-[address] 500 MG 00:00: 04:59 (500 mg [facility]ospita tablet 00 :00 total) by l mouth in the morning and 1 tablet (500 mg total) before bedtime. Do all this for 7 days. amoxicillin 2021- No [id number] 500mg Q.5D Take 1 [facility] (AMOXIL) 06-[address] 500 MG 00:00: 04:59 (500 mg [facility]ospita tablet 00 :00 total) by l mouth in the morning and 1 tablet (500 mg total) before bedtime. Do all this for 7 days. amoxicillin 2021- No [id number] 500mg Q.5D Take 1 [facility] (AMOXIL) 06-[address] 500 MG 00:00: 04:59 (500 mg [facility]ospita tablet 00 :00 total) by l mouth in the morning and 1 tablet (500 mg total) before bedtime. Do all this for 7 days. amoxicillin 2021- No [id number] 500mg Q.5D Take 1 [facility] (AMOXIL) 06-[address] 500 MG 00:00: 04:59 (500 mg [facility]ospita tablet 00 :00 total) by l mouth in the morning and 1 tablet (500 mg total) before bedtime. Do all this for 7 days. amoxicillin 2021- No [id number] 500mg Q.5D Take 1 [facility] (AMOXIL) 06-[address] 500 MG 00:00: 04:59 (500 mg [facility]ospita tablet 00 :00 total) by l mouth in the morning and 1 tablet (500 mg total) before bedtime. Do all this for 7 days. amoxicillin 2021- No [id number] 500mg Q.5D Take 1 [facility] (AMOXIL) 06-[address] 500 MG 00:00: 04:59 (500 mg [facility]ospita tablet 00 :00 total) by l mouth in the morning and 1 tablet (500 mg total) before bedtime. Do all this for 7 days. amoxicillin 2021- No [id number] 500mg Q.5D Take 1 [facility] (AMOXIL) 06-18 [...] (two) times a day with meals. amLODIPine 2-0 2- No [facility] ([facility]) 2- st 2.5 mg 00:00: 00:00 [facility]ospita tablet 00 :00 l amLODIPine 2022-0 2022- No [facility].5 [facility] 00:00: 00:00 [facility]osp[facility] tablet 00 :00 l amLODIPine 2022-0 2022- No [facility] ([facility]) 05-15-05 st 2.5 mg 00:00: 00:00 [facility]ospita tablet 00 :00 l amLODIPine 2022-0 2022- No [facility] ([facility]) 05-15-05 st 2.5 mg 00:00: 00:00 [facility]ospita tablet 00 :00 l amLODIPine 2022-0 2022- No [facility]05 st 2.5 mg 00:00: 00:00 [facility]ospita tablet 00 :00 l amLODIPine 2022-0 2- No [facility] ([facility]) 2- 04-05 st 2.5 mg 00:00: 00:00 Hospita tablet 00 :00 l amLODIPine 2022-0 2021- No [facility] ([facility]) 2- 04-05 st 2.5 mg 00:00: 00:00 Hospita tablet 00 :00 l amLODIPine 2022-0 2- No [facility] ([facility]) 2- 04-05 st 2.5 mg 00:00: 00:00 Hospita tablet 00 :00 l HYDROcodone 2022-0 2021- [place] [id number] 1{tbl} Q6H Take 1 [facility] -acetaminop 05-[address] OP3Nvoice ([facility]) 00:00: 05:59 mouth [facility] 5-325 mg 00 :00 every 6 l per tablet (six) hours as needed for moderate pain for up to 5 days .acute pain. Max Daily Amount: 4 tablets HYDROcodone 2021-0 2021- No [id number] 1{tbl} Q6H Take 1 [facility] -acetaminop 05-[address] OP3Nvoice ([facility]ostel) 00:00: 05:59 mouth [facility] 5-325 mg 00 :00 every 6 l per tablet (six) hours as needed for moderate pain for up to 5 days .acute pain. Max Daily Amount: 4 tablets HYDROcodone 2021-0 2021- No [id number] 1{tbl} Q6H Take 1 [facility] -acetaminop -05-[address] hen ([facility]) 00:00: 05:59 mouth [facility] 5-325 mg 00 :00 every 6 l per tablet (six) hours as needed for moderate pain for up to 5 days .acute pain. Max Daily Amount: 4 tablets HYDROcodone 2-0 2021- No [id number] 1{tbl} Q6H Take 1 [facility] -acetaminop -05-[address] hen ([facility]ostel) 00:00: 05:59 mouth [facility] 5-325 mg 00 :00 every 6 l per tablet (six) hours as needed for moderate pain for up to 5 days .acute pain. Max Daily Amount: 4 tablets HYDROcodone 2021-0 2021- No [id number] 1{tbl} Q6H Take 1 [facility] -acetaminop 05-[address] hen ([place]) 00:00: 05:59 mouth [facility] 5-325 mg 00 :00 every 6 l per tablet (six) hours as needed for moderate pain for up to 5 days .acute pain. Max Daily Amount: 4 tablets HYDROcodone 1{tbl} Q6H Take 1 [facility] -acetaminop 05-[address] hen ([place]) 00:00: 05:59 mouth [facility] 5-325 mg [...] 2021- No 2 PO [facility] (DELTASONE) 1-06 01-[address] 20 mg 00:00: 05:59 followed [...] to 5 days [place] [id number] 50mg Q6H Take 1 [facility] (ULTRAM) 50 04-12 tablet (50 s t mg tablet 00:00: 00:00 mg total) Ho spita 00 :00 by mouth l every 6 (six) hours as needed for moderate pain for up to 5 days [place] [id number] 50mg Q6H Take 1 [facility] (ULTRAM) 50 04-12 tablet (50 s t mg tablet 00:00: 00:00 mg total) [facility] spita 00 :00 by mouth l every 6 (six) hours as needed for moderate pain for up to 5 days .[place] [id number] 50mg Q6H Take 1 [facility] (ULTRAM) [...] 40mg QD Take 1 [facility] e 003-04 tablet (40 st (PROTONIX) 00:00: 05:59 mg [...] 1 Mahmood ne (ELAVIL) 9-[address] [facility] 25 mg 00:00: mouth at tablet 00 [...] 1 Maria rris azole-trime 9-24 tablet by [facility] thoprim 08:09: mouth 2 (BACTRIM 11 times DS) 800-160 daily. mg per tablet MULTIVITAMI 2019-0 Yes Take by [facility] ris N (DAILY 9-24 mouth. Health VITAMIN OR) 08:09: 11 sulfamethox 2019-0 Yes 1{tbl} Q.5D Take 1 Maria rris azole-trime 9-24 tablet by [facility] thoprim 08:09: mouth 2 (BACTRIM 11 times DS) 800-160 daily. mg per tablet MULTIVITAMI 2019-0 Yes Take by Tom ris N (DAILY 9-24 mouth. Health VITAMIN OR) 08:09: 11 sulfamethox 2019-0 Yes 1{tbl} Q.5D Take 1 [facility] rris azole-trime 9-24 tablet by [facility] thoprim 08:09: mouth 2 (BACTRIM 11 times DS) 800-160 daily. mg per tablet MULTIVITAMI 2019-0 Yes Take by Tom ris N (DAILY 9-24 mouth. Health VITAMIN OR) 08:09: 11 sulfamethox 2019-0 Yes 1{tbl} Q.5D Take 1 [facility] rris azole-trime 9-24 tablet by [facility] thoprim 08:09: mouth 2 (BACTRIM 11 times DS) 800-160 daily. mg per tablet MULTIVITAMI 2019-0 Yes Take by Tom ris N (DAILY 9-24 mouth. Health VITAMIN OR) 08:09: 11 sulfamethox 2019-0 Yes 1{tbl} Q.5D Take 1 [facility] 9[facility] [facility] (BACTRIM 11 times DS) 800-160 daily. mg per tablet MULTIVITAMI 2019-0 Yes Take by [facility] ris N (DAILY 9-24 mouth. Health VITAMIN OR) 08:09: 11 sulfamethox 2019-0 Yes 1{tbl} Q.5D Take 1 [facility]ris azole-trime 9-24 tablet by [facility] 08:09: mouth 2 (BACTRIM 11 times DS) 800-160 daily. mg per tablet MULTIVITAMI 2019-0 Yes Take by Tom ris N (DAILY 9-24 mouth. Health VITAMIN OR) 08:09: 11 sulfamethox 2019-0 Yes 1{tbl} Q.5D Take 1 [facility] azole[facility]trime 9[facility] [facility] mouth 2 (BACTRIM 11 times DS) 800-160 daily. mg per tablet MULTIVITAMI 2019-0 Yes Take by [facility] ris N (DAILY 9-24 mouth. Health VITAMIN OR) 08:09: 11 sulfamethox 2019-0 Yes 1{tbl} Q.5D Take 1 [facility] azole-trime 9-24 tablet by [facility] 08:09: mouth 2 (BACTRIM 11 times DS) [...] FLUCELVAX QUAD 2021-02-[address] 00:00:00 [facility] FLUCELVAX QUAD 2021-02-[address] 00:00:00 [facility] FLUCELVAX QUAD 2021-02-[address] 00:00:00 [facility] FLUCELVAX QUAD 2021-02-[address] 00:00:00 [facility] FLUCELVAX QUAD 2021-02-[address] 00:00:00 [facility] FLUCELVAX QUAD 2021-02-[address] 00:00:00 [facility] FLUCELVAX QUAD 2021-02-[address] 00:00:00 [facility] FLUCELVAX QUAD 2021-02-[address] 00:00:00 [facility] FLUCELVAX QUAD 2021-02-[address] 00:00:00 [facility] PFIZER COVID-19 MRNA 2020-08-05 Completed [facility] VACCINATION 00:00:00 [facility] PFIZER COVID-19 MRNA 2020-08-05 Completed [facility] VACCINATION 00:00:00 [facility] PFIZER COVID-19 MRNA 2020-08-05 Completed [facility] VACCINATION 00:00:00 [facility] PFIZER COVID-19 MRNA 2020-08-05 Completed [facility] VACCINATION 00:00:00 [facility] PFIZER COVID-19 MRNA 2020-08-05 Completed [facility] VACCINATION 00:00:00 [facility] PFIZER COVID-19 MRNA 2020-08-05 Completed [facility] VACCINATION 00:00:00 [facility] PFIZER COVID-19 MRNA 2020-08-05 Completed [facility] VACCINATION 00:00:00 [facility] PFIZER COVID-19 MRNA 2020-08-05 Completed [facility] VACCINATION 00:00:00 [facility] PFIZER COVID-19 MRNA 2020-08-05 Completed [facility] VACCINATION 00:00:00 [facility] PFIZER COVID-19 MRNA 2020-07-08 Completed [facility] VACCINATION 00:00:00 [facility] PFIZER COVID-19 MRNA 2020-07-08 Completed [facility] VACCINATION 00:00:00 [facility] PFIZER COVID-19 MRNA 2020-07-08 Completed [facility] VACCINATION 00:00:00 [facility] PFIZER COVID-19 MRNA 2020-07-08 Completed [facility] VACCINATION 00:00:00 [facility] PFIZER COVID-19 MRNA 2020-07-08 Completed [facility] VACCINATION 00:00:00 [facility] PFIZER COVID-19 MRNA 2020-07-08 Completed [facility] VACCINATION 00:00:00 [facility] PFIZER COVID-19 MRNA 2020-07-08 Completed [facility] VACCINATION 00:00:00 [facility] PFIZER COVID-19 MRNA 2020-07-08 Completed [facility] VACCINATION 00:00:00 [facility] PFIZER COVID-19 MRNA 2020-07-08 Completed [facility] VACC[facility]ATION 00:00:00 [facility] Influenza, 2020-03-12 Completed [facility] Vaccine<FLUCELVAX>(M 00:00:00 ulti-Dose) Tdap (Tetanus 2020-03-12 Completed [facility] Toxoid, Reduced 00:00:00 Diphtheria Toxoid And Acellular Pertussis, Absorbed) Influenza, 2020-03-12 Completed [facility] Vaccine<FLUCELVAX>(M 00:00:00 ulti-Dose) Tdap (Tetanus 2020-03-12 Completed [facility] Toxoid, Reduced 00:00:00 Diphtheria Toxoid And Acellular Pertussis, Absorbed) Influenza, 2020-03-12 Completed [facility] Vaccine<FLUCELVAX>(M 00:00:00 ulti-Dose) Tdap (Tetanus 2020-03-12 Completed [facility] Toxoid, Reduced 00:00:00 Diphtheria Toxoid And Acellular Pertussis, Absorbed) Influenza, 2020-03-12 Completed [facility] Vaccine<FLUCELVAX>(M 00:00:00 ulti-Dose) Tdap (Tetanus 2020-03-12 Completed [facility] Toxoid, Reduced 00:00:00 Diphtheria Toxoid And Acellular Pertussis, Absorbed) Influenza, 2020-03-12 Completed [facility] Vaccine<FLUCELVAX>(M 00:00:00 ulti-Dose) Tdap (Tetanus 2020-03-12 Completed [facility] th Toxoid, Reduced 00:00:00 Diphtheria Toxoid And Acellular Pertussis, Absorbed) Influenza, 2020-03-12 Completed [facility] Vaccine<FLUCELVAX>(M 00:00:00 ulti-Dose) Tdap (Tetanus 2020-03-12 Completed [facility] th Toxoid, Reduced 00:00:00 Diphtheria Toxoid And Acellular Pertussis, Absorbed) Influenza, 2020-03-12 Completed [facility] Vaccine<FLUCELVAX>(M 00:00:00 ulti-Dose) Tdap (Tetanus 2020-03-12 Completed [facility] th Toxoid, Reduced 00:00:00 Diphtheria Toxoid And Acellular Pertussis, Absorbed) Influenza, 2020-03-12 Completed [facility] Vaccine<FLUCELVAX>(M 00:00:00 ulti-Dose) Tdap (Tetanus 2020-03-12 Completed [facility] th Toxoid, Reduced 00:00:00 Diphtheria Toxoid And Acellular Pertussis, Absorbed) Influenza, 2020-03-12 Completed [facility] Vaccine<FLUCELVAX>(M 00:00:00 ulti-Dose) Tdap (Tetanus 2020-03-12 Completed [facility] th Toxoid, Reduced 00:00:00 Diphtheria Toxoid And Acellular Pertussis, Absorbed) Vital Signs Vital Name Observation Time Observation Value Comments Source Systolic blood 2022-02-20 01:13:29 129 mm[Hg] [facility] pressure Diastolic blood 2022-02-20 01:13:29 67 mm[Hg] [facility] pressure Heart rate 2022-02-20 01:13:29 60 /min [facility] Respiratory rate 2022-02-20 01:13:29 18 /min [facility] Oxygen saturation in 2022-02-20 01:13:29 96 /min [facility] Arterial blood by Pulse oximetry Body height 2022-02-19 20:30:00 162.6 cm [facility] Body weight 2022-02-19 20:30:00 79.379 kg [facility] BMI 2022-02-19 20:30:00 30.04 kg/m2 [facility] Body temperature 2022-02-19 20:29:09 36.61 Nydia [facility] pulse rate 2021-12-16 13:21:49 87 /min [facility] blood pressure, 2021-12-16 13:21:49 67 mm[Hg] [facility] blood pressure, 2021-12-16 13:21:49 132 mm[Hg] [facility] pulse rate 2020-11-25 14:31:56 70 /min [facility] blood pressure, 2020-11-25 14:31:56 74 mm[Hg] [facility] blood pressure, 2020-11-25 14:31:56 113 mm[Hg] [facility] pulse rate 2020-11-25 13:39:38 70 /min [facility] blood pressure, 2020-11-25 13:39:38 74 mm[Hg] [facility] blood pressure, 2020-11-25 13:39:38 113 mm[Hg] [facility] Procedures Procedure Date / Time Performing Source Performed Clinician CT CHEST WO CONTRAST ABDOMEN WO 2022-02-20 Cristóbal Ovalle CONTRAST PELVIS WO CONTRAST 01:47:08 [facility] ECG ED PRELIMINARY INTERPRETATION 2022-02-20 Cristóbal Ovalle 01:34:30 [facility] CBC WITH PLATELET AND DIFFERENTIAL 2022-02-19 Pa Manning 21:40:00 [facility] COMPREHENSIVE METABOLIC PANEL 2022-02-19 Alee Manning Mo [facility] 21:40:00 [facility] HCG QUALITATIVE, SERUM SCREEN 2022-02-19 Alee Manning [facility] 21:40:00 Hospital ESTIMATED GFR 2022-02-19 Alee Manning 21:40:00 [facility] ECG 12-LEAD 2022-02-19 Alee Manning 20:46:22 Hospital URINE CULTURE 2022-02-19 Alee Manning 20:34:00 Hospital URINALYSIS SCREEN AND MICROSCOPY, 2022-02-19 Eulalio Manning WITH REFLEX TO CULTURE 20:34:00 [facility] HEPATITIS B SURFACE ANTIGEN 2022-02-05 Eddie [...] 2022-02-05 Eddie Farris QUANTITATIVE PCR 15:30:00 Hospital HIV 1/2 ANTIGEN/ANTIBODY, FOURTH 2022-02-05 Eddie Farris GENERATION, WITH REFLEXES 15:30:00 Hospit al SURGICAL PATHOLOGY REQUEST 2021-12-26 Esthela Small Mo thodist 18:06:00 Hospital COLONOSCOPY 2021-12-26 Esthela Small Mosque 15:44:00 [facility] ESOPHAGOGASTRODUODENOSCOPY (EGD) 2021-12-26 Esthela Small Mosque 15:44:00 [facility] COVID-19 QUALITATIVE RT-PCR 2021-12-24 Esthela Small ethodist 12:41:00 Hospital THINPREP TIS AND HPV MRNA E6/E7 2021-12-18 Eddie Farris 18:34:00 [facility] ECG 12-LEAD 2021-11-28 Keith Carroll 15:26:34 [facility] TROPONIN T 2021-11-07 Zeyad Cohen 20:01:[address] [facility] COVID-19 QUALITATIVE RT-PCR 2021-11-07 Zeyad Cohen 19:09:[address] [facility] COVID-19 OMICRON VARIANT 2021-11-[address] QUALITATIVE RT-PCR 19:09:[address] [facility] XR CHEST 2 VW 2021-11-07 Zeyad Cohen 18:51:[address] [facility] ECG ED PRELIMINARY INTERPRETATION 2021-11-07 Karo Cohen 18:50:[address] [facility] COMPREHENSIVE METABOLIC PANEL 2021-11-07 Zeyad Cohen thodist 18:03:[address] [facility] TROPONIN T 2021-11-07 Zeyad Cohenist 18:03:[address] [facility] CBC WITH PLATELET AND DIFFERENTIAL 2021-11-07 Ed Cohen Mosque 18:03:[address] [facility] HCG QUALITATIVE, SERUM SCREEN 2021-11-07 Zeyad Cohen Me thodist 18:03:[address] [facility] ESTIMATED GFR 2021-11-07 Zeyad Cohen Mosque 18:03:[address] [facility] ECG 12-LEAD 2021-11-07 OghoghoLiborio Mosque 17:57:16 [facility] FL UGI W OR WO KUB 2021-11-03 Esthela Small Mosque 15:16:30 [facility] HEPATITIS C VIRUS (HCV), 2021-11-03 Esthela Small [facility] QUANTITATIVE PCR 13:52:00 [facility] HEPATIC FUNCTION PANEL 2021-11-03 Esthela Small Method ist 13:52:00 [facility] XR CHEST 2 VW 2021-10-15 José Rider Mosque 02:52:42 [facility] COMPREHENSIVE METABOLIC PANEL 2021-10-15 Mario Maher thodist 01:15:00 [facility] TROPONIN T 2021-10-15 Mario Maher 01:15:00 [facility] B NATRIURETIC PEPTIDE 2021-10-15 Mario Maherist 01:15:00 [facility] CBC WITH PLATELET AND DIFFERENTIAL 2021-10-15 Kassy Maher Mosque 01:15:00 [facility] PROTHROMBIN TIME WITH INR 2021-10-15 Mario Maher ist 01:15:00 [facility] PARTIAL THROMBOPLASTIN TIME (PTT) 2021-10-15 Mario Maherist 01:15:00 [facility] ESTIMATED GFR 2021-10-15 Mario Maherist 01:15:00 [facility] ECG 12-LEAD 2021-10-15 Mario Maher 00:33:[address] [facility] [address] ANGIOGRAM PE CHEST 2021-10-12 Trung Hudson 17:55:52 [facility] CBC WITH PLATELET AND DIFFERENTIAL 2021-10-12 Trung Hudson 15:36:00 Hospital COMPREHENSIVE METABOLIC PANEL 2021-10-12 Trung Hudson ethodist 15:36:00 Hospital TROPONIN T 2021-10-12 Trung Hudson 15:36:00 Hospital B NATRIURETIC PEPTIDE 2021-10-12 Trung Hudson 15:36:00 Hospital CREATINE KINASE, TOTAL (CPK) 2021-10-12 Trung Hudson Me thodist 15:36:00 Hospital ESTIMATED GFR 2021-10-12 Trung Hudson 15:36:00 Hospital ECG ED PRELIMINARY INTERPRETATION 2021-10-12 Trung Hudson 15:20:39 Hospital URINE CULTURE 2021-10-12 Rajinder Ordoñez 15:17:00 [facility] URINALYSIS SCREEN AND MICROSCOPY, 2021-10-12 Arslan Ordoñez WITH REFLEX TO CULTURE 15:17:00 [facility] HCG QUALITATIVE, URINE SCREEN 2021-10-12 Rajinder Ordoñez 15:17:00 [facility] ECG 12-LEAD 2021-10-12 Rajinder Ordoñez 14:48:50 [facility] MA AN ELECTIVE SUPRAGLOTTIC AIRWAY 2021-09-30 Ruddy Marie 12:10:00 Hospital DECOMPRESSION, ULNAR NERVE 2021-09-30 Rebecca Brownlee 12:06:00 [facility] COVID-19 QUALITATIVE RT-PCR 2021-09-26 Dulce Maria Pierre 14:23:00 [facility] PROTHROMBIN TIME WITH INR 2021-09-26 Antonio Pierre ist 14:23:00 [facility] PARTIAL THROMBOPLASTIN TIME (PTT) 2021-09-26 Keith Pierre 14:23:00 [facility] COMPREHENSIVE METABOLIC PANEL 2021-09-26 Me Gabby thodist 14:23:00 [facility] ESTIMATED GFR 2021-09-26 Rebecca Brownlee 14:23:00 [facility] HEMOGLOBIN A1C 2021-09-26 Rebecca Brownlee 14:23:00 [facility] CBC WITH PLATELET AND DIFFERENTIAL 2021-09-19 Lexie Esparza 07:10:00 [facility] THYROID STIMULATING HORMONE 2021-09-19 Peggy Esparza 07:10:00 [facility] CBC WITH PLATELET AND DIFFERENTIAL 2021-09-19 Lucio Esparza deloris Mosque 07:10:00 Hospital XR ELBOW 3+ VW LEFT 2021-09-10 Rebecca Brownlee 15:28:[address] [facility] [address] ANGIOGRAM NECK W WO CONTRAST 2021-08-27 Brenda Retana 00:01:04 [facility] CT ANGIOGRAM HEAD W WO CONTRAST 2021-08-27 Brenda Retana 00:00:50 [facility] CT HEAD WO CONTRAST 2021-08-26 Brenda Retana 23:42:36 [facility] ECG ED PRELIMINARY INTERPRETATION 2021-08-26 Brenda Retana 23:22:45 [facility] CBC WITH PLATELET AND DIFFERENTIAL 2021-08-26 Willie Retana 21:57:00 [facility] COMPREHENSIVE METABOLIC PANEL 2021-08-26 Brenda Retana thodist 21:57:00 [facility] TROPONIN T 2021-08-26 Brenda Retana 21:57:00 [facility] B NATRIURETIC PEPTIDE 2021-08-26 Brenda Retana 21:57:00 [facility] HCG QUALITATIVE, SERUM SCREEN 2021-08-26 Brenda Retana Me thodist 21:57:00 [facility] ESTIMATED GFR 2021-08-26 Brenda Retana 21:57:00 [facility] ECG 12-LEAD 2021-08-26 Brenda Retana 21:42:16 [facility] URINE CULTURE 2021-08-06 Myles Martinist 22:27:00 [facility] URINALYSIS SCREEN AND MICROSCOPY, 2021-08-06 Myles Martin Siist WITH REFLEX TO CULTURE 22:27:00 [facility] XR CHEST 2 VW 2021-08-06 Myles Martin 20:36:00 [facility] INFLUENZA ANTIGEN 2021-08-06 Susie Melton 20:10:00 [facility] RESPIRATORY PATHOGEN PANEL WITH 2021-08-06 Susie Melton COVID-19 RT-PCR 20:10:00 [facility] ECG ED PRELIMINARY INTERPRETATION 2021-08-06 Myles Martin Siist 20:08:02 [facility] COMPREHENSIVE METABOLIC PANEL 2021-08-06 Susie Melton Me thodist 20:05:00 [facility] CBC WITH PLATELET AND DIFFERENTIAL 2021-08-06 Montserrat Melton Mosque 20:05:00 [facility] TROPONIN T 2021-08-06 Susie Melton Mosque 20:05:00 [facility] LIPASE LEVEL 2021-08-06 Susie Melton Mosque 20:05:00 [facility] ESTIMATED GFR 2021-08-06 Alaina, Tyleslie Mosque 20:05:00 [facility] ECG 12-LEAD 2021-08-06 Susie Melton Mosque 19:55:29 [facility] TROPONIN T 2021-08-01 Brenda Retana Mosque 03:32:00 [facility] ECG ED PRELIMINARY INTERPRETATION 2021-08-01 TyshawnWilliamdamon Chiu i Mosque 02:37:45 [facility] CBC WITH PLATELET AND DIFFERENTIAL 2021-08-01 Willie Retana Mosque 00:35:00 [facility] COMPREHENSIVE METABOLIC PANEL 2021-08-01 Brenda Retana thodist 00:35:00 [facility] TROPONIN T 2021-08-01 Brenda Retana Mosque 00:35:00 [facility] B NATRIURETIC PEPTIDE 2021-08-01 Brenda Retana Mosque 00:35:00 [facility] ESTIMATED GFR 2021-08-01 Brenda Retana Mosque 00:35:00 [facility] ECG 12-LEAD 2021-08-01 Brenda Retana Mosque 00:23:19 [facility] TROPONIN T 2021-07-30 Jaida Sales Mosque 21:35:00 Hospital ECG ED PRELIMINARY INTERPRETATION 2021-07-30 Myles Martin Si Mosque 19:53:48 Hospital XR CHEST 2 VW 2021-07-30 Myles Martni Mosque 19:37:56 [facility] COMPREHENSIVE METABOLIC PANEL 2021-07-30 Jaida Sales Mosque 18:40:00 Hospital CBC WITH PLATELET AND DIFFERENTIAL 2021-07-30 Jaida Sales 18:40:00 Hospital TROPONIN T 2021-07-30 Jaida Sales Mosque 18:40:00 Hospital B NATRIURETIC PEPTIDE 2021-07-[address] 18:40:00 Hospital ESTIMATED GFR 2021-07-30 Jaida Sales 18:40:00 Hospital ECG 12-LEAD 2021-07-30 Jaida Sales 18:33:57 [facility] MAMMO BREAST SCREEN TOMOSYNTHESIS 2021-07-28 Shell Vargas Mosque BILATERAL 14:20:00 [facility] ECG ED PRELIMINARY INTERPRETATION 2021-07-01 TyshawnNelson Aram william Mosque 00:04:28 Hospital TROPONIN T 2021-06-30 Mario Maher 23:09:00 [facility] RESPIRATORY PATHOGEN PANEL WITH 2021-06-30 Mario Maher COVID-19 RT-PCR 21:09:00 [facility] XR CHEST 2 VW 2021-06-30 Mario Maher 20:40:51 [facility] COMPREHENSIVE METABOLIC PANEL 2021-06-30 Mario Maher Mo thodist 20:06:00 [facility] TROPONIN T 2021-06-30 Mario Maher 20:06:00 [facility] B NATRIURETIC PEPTIDE 2021-06-30 Mario Maher 20:06:00 [facility] CBC WITH PLATELET AND DIFFERENTIAL 2021-06-30 Kassy Maher 20:06:00 [facility] ESTIMATED GFR 2021-06-30 Mario Maher 20:06:00 [facility] ECG 12-LEAD 2021-06-30 Mario Maher 19:54:19 [facility] POC URINALYSIS DIPSTICK 2021-06-16 Eddie Farris t 18:20:00 [facility] THINPREP TIS PAP AND HPV MRNA 2021-06-16 Eddie Farris Mo thodist E6/E7 REFLEX HPV 16,18/45 18:17:00 Hospit al URINALYSIS, COMPLETE, WITH REFLEX 2021-06-16 Eddie Farrisist TO CULTURE 17:55:00 [facility] XR SHOULDER 2+ VW RIGHT 2021-06-02 Roger Ling t 17:52:[address] [facility] MRI LUMBAR SPINE WO CONTRAST 2021-05-09 Istre, Shell Met hodist 18:44:08 [facility] MRI CERVICAL SPINE WO CONTRAST 2021-05-05 Shell Vargas ethodist 14:11:[address] [facility] [address] LUMBAR SPINE WO CONTRAST 2021-05-04 Linseyjacy Liborio Met hodist 22:36:[address] THORACIC SPINE WO CONTRAST 2021-05-04 Liborio Herrera M ethodist 22:35:58 Hospital TROPONIN T 2021-04-13 Shine Lui 01:33:00 Hospital XR CHEST 2 VW 2021-04-12 Shine Lui 23:31:00 Hospital COMPREHENSIVE METABOLIC PANEL 2021-04-12 Shine Lui thodist [...] ED PRELIMINARY INTERPRETATION 2021-04-12 Shine Lui 21:47:56 Hospital Plan of Care Planned Activity Planned Date Details Comments Source Future Scheduled 2024-09-11 [facility]:00 malignant neoplasm of cervix (procedure) [code = 020437803] Future Scheduled 2024-09-11 [facility] 00:00:00 malignant neoplasm of cervix (procedure) [code = 829003613] Future Scheduled 2024-09-11 [facility] 00:00:00 malignant neoplasm of cervix (procedure) [code = 861334129] Future Scheduled 2024-09-11 [facility] 00:00:00 malignant neoplasm of cervix (procedure) [code = 134500410] Future Scheduled 2024-09-11 [facility] 00:00:00 malignant neoplasm of cervix (procedure) [code = 797318899] Future Scheduled 2024-09-11 [facility] 00:00:00 malignant neoplasm of cervix (procedure) [code = 058173197] Future Scheduled 2024-09-11 [facility] 00:00:00 malignant neoplasm of cervix (procedure) [code = 083960021] Future Scheduled 2024-09-11 [facility] 00:00:00 malignant neoplasm of cervix (procedure) [code = 610479775] Future Scheduled 2024-09-11 [facility] 00:00:00 malignant neoplasm of cervix (procedure) [code = 385119161] Future Scheduled 2024-09-11 [facility] 00:00:00 malignant neoplasm of cervix (procedure) [code = 502285216] Future Scheduled 2024-09-11 [facility] 00:00:00 malignant neoplasm of cervix (procedure) [code = 630634127] Future Scheduled 2024-09-11 [facility] 00:00:00 malignant neoplasm of cervix (procedure) [code = 117851787] Future Scheduled 2024-09-11 [facility] 00:00:00 malignant neoplasm of cervix (procedure) [code = 574362647] Future Scheduled 2024-09-11 [facility] 00:00:00 malignant neoplasm of cervix (procedure) [code = 599199089] Future Scheduled 2024-09-11 [facility] 00:00:00 malignant neoplasm of cervix (procedure) [code = 381863506] Future Scheduled 2024-09-11 [facility] 00:00:00 malignant neoplasm of cervix (procedure) [code = 689437483] Future Scheduled 2024-09-11 [facility] 00:00:00 malignant neoplasm of cervix (procedure) [code = 705362433] Future Scheduled 2024-09-11 [facility] 00:00:00 malignant neoplasm of cervix (procedure) [code = 215739909] Future Scheduled 2023-01-10 IMM Influenza Seasonal H [facility] Test 00:00:00 (>/= 19 yrs) [code = IMM Influenza Seasonal (>/= 19 yrs)] Future Scheduled 2022-08-06 HEPATITIS B VACCINES Met [facility] Test 21:07:15 (1 of 3 - 3-dose series) [code = HEPATITIS B VACCINES (1 of 3 - 3-dose series)] Future Scheduled 2022-08-06 Pneumococcal Vaccine: [facility] Test 21:07:15 Pediatrics (0 to 5 Years) and At-Risk Patients (6 to 64 Years) (1 - PCV) [code = Pneumococcal Vaccine: Pediatrics (0 to 5 Years) and At-Risk Patients (6 to 64 Years) (1 - PCV)] Future Scheduled 2022-08-06 COLONOSCOPY SCREENING [facility] Test 21:07:15 [code = COLONOSCOPY SCREENING] Future Scheduled 2022-08-06 SHINGLES VACCINES (1 Met [facility] Test 21:07:15 of 2) [code = SHINGLES VACCINES (1 of 2)] Future Scheduled 2022-08-06 COVID-19 VACCINE (3 - [facility] Test 21:07:15 Booster for Pfizer series) [code = COVID-19 VACCINE (3 - Booster for Pfizer series)] Future Scheduled 2022-08-06 BREAST CANCER [facility] Test 21:07:15 SCREENING [code = BREAST CANCER SCREENING] Future Scheduled 2022-08-06 INFLUENZA VACCINE Method [facility] Test 21:07:15 [code = INFLUENZA VACCINE] Future Scheduled 2022-08-06 Screening for [facility] Test 21:07:15 malignant neoplasm of cervix (procedure) [code = 048628831] Future Scheduled 2022-06-22 HEPATITIS B VACCINES [facility] Test 14:13:36 (1 of 3 - 3-dose series) [code = HEPATITIS B VACCINES (1 of 3 - 3-dose series)] Future Scheduled 2022-06-22 Pneumococcal Vaccine: [facility] Test 14:13:36 Pediatrics (0 to 5 Years) and At-Risk Patients (6 to 64 Years) (1 - PCV) [code = Pneumococcal Vaccine: Pediatrics (0 to 5 Years) and At-Risk Patients (6 to 64 Years) (1 - PCV)] Future Scheduled 2022-06-22 COLONOSCOPY SCREENING [facility] Test 14:13:36 [code = COLONOSCOPY SCREENING] Future Scheduled 2022-06-22 SHINGLES VACCINES (1 Met [facility] Test 14:13:36 of 2) [code = SHINGLES VACCINES (1 of 2)] Future Scheduled 2022-06-22 COVID-19 VACCINE (3 - [facility] Test 14:13:36 Booster for Pfizer series) [code = COVID-19 VACCINE (3 - Booster for Pfizer series)] Future Scheduled 2022-06-22 INFLUENZA VACCINE Method [facility] Test 14:13:36 [code = INFLUENZA VACCINE] Future Scheduled 2022-06-22 BREAST CANCER [facility] Test 14:13:36 SCREENING [code = BREAST CANCER SCREENING] Future Scheduled 2022-06-22 Screening for [facility] Test 14:13:36 malignant neoplasm of cervix (procedure) [code = 835755499] Future Scheduled 2022 HEPATITIS B VACCINES Met [facility] Test 13:45:15 (1 of 3 - 3-dose series) [code = HEPATITIS B VACCINES (1 of 3 - 3-dose series)] Future Scheduled 2022 Pneumococcal Vaccine: [facility] Test 13:45:15 Pediatrics (0 to 5 Years) and At-Risk Patients (6 to 64 Years) (1 - PCV) [code = Pneumococcal Vaccine: Pediatrics (0 to 5 Years) and At-Risk Patients (6 to 64 Years) (1 - PCV)] Future Scheduled 2022 COLONOSCOPY SCREENING [facility] Test 13:45:15 [code = COLONOSCOPY SCREENING] Future Scheduled 2022 SHINGLES VACCINES (1 Met [facility] Test 13:45:15 of 2) [code = SHINGLES VACCINES (1 of 2)] Future Scheduled 2022 COVID-19 VACCINE (3 - [facility] Test 13:45:15 Booster for Pfizer series) [code = COVID-19 VACCINE (3 - Booster for Pfizer series)] Future Scheduled 2022 INFLUENZA VACCINE Method [facility] Test 13:45:15 [code = INFLUENZA VACCINE] Future Scheduled 2022 BREAST CANCER [facility] Test 13:45:15 SCREENING [code = BREAST CANCER SCREENING] Future Scheduled 2022 Screening for [facility] Test 13:45:15 malignant neoplasm of cervix (procedure) [code = 930113303] Future Scheduled 2022-04-17 HEPATITIS B VACCINES Met [facility] Test 10:21:02 (1 of 3 - 3-dose series) [code = HEPATITIS B VACCINES (1 of 3 - 3-dose series)] Future Scheduled 2022-04-17 Pneumococcal Vaccine: [facility] Test 10:21:02 Pediatrics (0 to 5 Years) and At-Risk Patients (6 to 64 Years) (1 - PCV) [code = Pneumococcal Vaccine: Pediatrics (0 to 5 Years) and At-Risk Patients (6 to 64 Years) (1 - PCV)] Future Scheduled 2022-04-17 COLONOSCOPY SCREENING [facility] Test 10:21:02 [code = COLONOSCOPY SCREENING] Future Scheduled 2022-04-17 SHINGLES VACCINES (1 [facility] Test 10:21:02 of 2) [code = SHINGLES VACCINES (1 of 2)] Future Scheduled 2022-04-17 COVID-19 VACCINE (3 - [facility] Test 10:21:02 Booster for Pfizer series) [code = COVID-19 VACCINE (3 - Booster for Pfizer series)] Future Scheduled 2022-04-17 INFLUENZA VACCINE Method [facility] Test 10:21:02 [code = INFLUENZA VACCINE] Future Scheduled 2022-04-17 BREAST CANCER [facility] Test 10:21:02 SCREENING [code = BREAST CANCER SCREENING] Future Scheduled 2022-04-17 Screening for [facility] Test 10:21:02 malignant neoplasm of cervix (procedure) [code = 617919600] Future Scheduled 2022-04-15 HEPATITIS B VACCINES Met [facility] Test 14:24:02 (1 of 3 - 3-dose series) [code = HEPATITIS B VACCINES (1 of 3 - 3-dose series)] Future Scheduled 2022-04-15 Pneumococcal Vaccine: [facility] Test 14:24:02 Pediatrics (0 to 5 Years) and At-Risk Patients (6 to 64 Years) (1 - PCV) [code = Pneumococcal Vaccine: Pediatrics (0 to 5 Years) and At-Risk Patients (6 to 64 Years) (1 - PCV)] Future Scheduled 2022-04-15 COLONOSCOPY SCREENING [facility] Test 14:24:02 [code = COLONOSCOPY SCREENING] Future Scheduled 2022-04-15 SHINGLES VACCINES (1 Met [facility] Test 14:24:02 of 2) [code = SHINGLES VACCINES (1 of 2)] Future Scheduled 2022-04-15 COVID-19 VACCINE (3 - [facility] Test 14:24:02 Booster for Pfizer series) [code = COVID-19 VACCINE (3 - Booster for Pfizer series)] Future Scheduled 2022-04-15 INFLUENZA VACCINE Method [facility] Test 14:24:02 [code = INFLUENZA VACCINE] Future Scheduled 2022-04-15 BREAST CANCER [facility] Test 14:24:02 SCREENING [code = BREAST CANCER SCREENING] Future Scheduled 2022-04-15 Screening for [facility] Test 14:24:02 malignant neoplasm of cervix (procedure) [code = 393469127] Future Scheduled 2022-04-03 HEPATITIS B VACCINES Met [facility] Test 09:31:00 (1 of 3 - 3-dose series) [code = HEPATITIS B VACCINES (1 of 3 - 3-dose series)] Future Scheduled 2022-04-03 Pneumococcal Vaccine: [facility] Test 09:31:00 Pediatrics (0 to 5 Years) and At-Risk Patients (6 to 64 Years) (1 - PCV) [code = Pneumococcal Vaccine: Pediatrics (0 to 5 Years) and At-Risk Patients (6 to 64 Years) (1 - PCV)] Future Scheduled 2022-04-03 COLONOSCOPY SCREENING [facility] Test 09:31:00 [code = COLONOSCOPY SCREENING] Future Scheduled 2022-04-03 SHINGLES VACCINES (1 Met [facility] Test 09:31:00 of 2) [code = SHINGLES VACCINES (1 of 2)] Future Scheduled 2022-04-03 COVID-19 VACCINE (3 - [facility] Test 09:31:00 Booster for Pfizer series) [code = COVID-19 VACCINE (3 - Booster for Pfizer series)] Future Scheduled 2022-04-03 INFLUENZA VACCINE Method [facility] Test 09:31:00 [code = INFLUENZA VACCINE] Future Scheduled 2022-04-03 BREAST CANCER [facility] Test 09:31:00 SCREENING [code = BREAST CANCER SCREENING] Future Scheduled 2022-04-03 Screening for [facility] Test 09:31:00 malignant neoplasm of cervix (procedure) [code = 591006990] Future Scheduled 2022-03-05 HEPATITIS B VACCINES Met [facility] Test 00:08:56 (1 of 3 - 3-dose series) [code = HEPATITIS B VACCINES (1 of 3 - 3-dose series)] Future Scheduled 2022-03-05 Pneumococcal Vaccine: [facility] Test 00:08:56 Pediatrics (0 to 5 Years) and At-Risk Patients (6 to 64 Years) (1 - PCV) [code = Pneumococcal Vaccine: Pediatrics (0 to 5 Years) and At-Risk Patients (6 to 64 Years) (1 - PCV)] Future Scheduled 2022-03-05 COLONOSCOPY SCREENING [facility] Test 00:08:56 [code = COLONOSCOPY SCREENING] Future Scheduled 2022-03-05 SHINGLES VACCINES (1 Met [facility] Test 00:08:56 of 2) [code = SHINGLES VACCINES (1 of 2)] Future Scheduled 2022-03-05 COVID-19 VACCINE (3 - [facility] Test 00:08:56 Booster for Pfizer series) [code = COVID-19 VACCINE (3 - Booster for Pfizer series)] Future Scheduled 2022-03-05 INFLUENZA VACCINE Method [facility] Test 00:08:56 [code = INFLUENZA VACCINE] Future Scheduled 2022-03-05 BREAST CANCER [facility] Test 00:08:56 SCREENING [code = BREAST CANCER SCREENING] Future Scheduled 2022-03-05 Screening for [facility] Test 00:08:56 malignant neoplasm of cervix (procedure) [code = 045429440] Future Scheduled 2022-03-05 HEPATITIS B VACCINES Met [facility] Test 00:08:56 (1 of 3 - 3-dose series) [code = HEPATITIS B VACCINES (1 of 3 - 3-dose series)] Future Scheduled 2022-03-05 Pneumococcal Vaccine: [facility] Test 00:08:56 Pediatrics (0 to 5 Years) and At-Risk Patients (6 to 64 Years) (1 - PCV) [code = Pneumococcal Vaccine: Pediatrics (0 to 5 Years) and At-Risk Patients (6 to 64 Years) (1 - PCV)] Future Scheduled 2022-03-05 COLONOSCOPY SCREENING [facility] Test 00:08:56 [code = COLONOSCOPY SCREENING] Future Scheduled 2022-03-05 SHINGLES VACCINES (1 Met [facility] Test 00:08:56 of 2) [code = SHINGLES VACCINES (1 of 2)] Future Scheduled 2022-03-05 COVID-19 VACCINE (3 - [facility] Test 00:08:56 Booster for Pfizer series) [code = COVID-19 VACCINE (3 - Booster for Pfizer series)] Future Scheduled 2022-03-05 INFLUENZA VACCINE Method [facility] Test 00:08:56 [code = INFLUENZA VACCINE] Future Scheduled 2022-03-05 BREAST CANCER [facility] Test 00:08:56 SCREENING [code = BREAST CANCER SCREENING] Future Scheduled 2022-03-05 Screening for [facility] Test 00:08:56 malignant neoplasm of cervix (procedure) [code = 303679247] Future Scheduled 2022-02-22 HEPATITIS B VACCINES Met [facility] Test 22:17:15 (1 of 3 - 3-dose series) [code = HEPATITIS B VACCINES (1 of 3 - 3-dose series)] Future Scheduled 2022-02-22 Pneumococcal Vaccine: [facility] Test 22:17:15 Pediatrics (0 to 5 Years) and At-Risk Patients (6 to 64 Years) (1 - PCV) [code = Pneumococcal Vaccine: Pediatrics (0 to 5 Years) and At-Risk Patients (6 to 64 Years) (1 - PCV)] Future Scheduled 2022-02-22 COLONOSCOPY SCREENING [facility] Test 22:17:15 [code = COLONOSCOPY SCREENING] Future Scheduled 2022-02-22 SHINGLES VACCINES (1 Met [facility] Test 22:17:15 of 2) [code = SHINGLES VACCINES (1 of 2)] Future Scheduled 2022-02-22 COVID-19 VACCINE (3 - [facility] Test 22:17:15 Booster for Pfizer series) [code = COVID-19 VACCINE (3 - Booster for Pfizer series)] Future Scheduled 2022-02-22 INFLUENZA VACCINE Method [facility] Test 22:17:15 [code = INFLUENZA VACCINE] Future Scheduled 2022-02-22 BREAST CANCER [facility] Test 22:17:15 SCREENING [code = BREAST CANCER SCREENING] Future Scheduled 2022-02-22 Screening for [facility] Test 22:17:15 malignant neoplasm of cervix (procedure) [code = 472355905] Future Scheduled 2022-01-10 IMM Influenza Seasonal H [...] malignant neoplasm of colon (procedure) [code = 768060120] Future Scheduled 2019 Screening for [facility] Test 00:00:00 malignant neoplasm of colon (procedure) [code = 016949416] Future Scheduled 2019 Screening for [facility] Test 00:00:00 malignant neoplasm of colon (procedure) [code = 326335749] Future Scheduled 2019 Screening for [facility] Test 00:00:00 malignant neoplasm of colon (procedure) [code = 151650815] Future Scheduled 2019 Screening for [facility] Test 00:00:00 malignant neoplasm of colon (procedure) [code = 914491552] Future Scheduled 2019 Screening for [facility] Test 00:00:00 malignant neoplasm of colon (procedure) [code = 368225241] Future Scheduled 2019 Screening for [facility] Test 00:00:00 malignant neoplasm of colon (procedure) [code = 429345465] Future Scheduled 2019 Screening for [facility] Test 00:00:00 malignant neoplasm of colon (procedure) [code = 205153866] Future Scheduled 2019 Screening for [facility] Test 00:00:00 malignant neoplasm of colon (procedure) [code = 054882513] Future Scheduled 1975 Imm Pneumococcal 0-64 Maria [...] Type Clinicians Facility Department ID 2022-04-23 Outpatient [facility] [id number] [place] 15:11:46 [id number] Health 2022-05-15 2022-05-15 Outpatient KELLI ALDANA [id number] 22 Kelli 00:00:00 00:00:00 SHINE ren 2022-02-19 2022-02-19 Emergency Vasquez, 1.2.840.1 [id number] 2100 [id number] Methodi 18:09:00 20:16:[address] [place] 3.430.2.7 Hosp shai .3.958385 l .8 2022-02-19 2022-02-19 Emergency Vasquez, 1.2.840.1 [id number] 2100 [id number] Methodi 18:09:00 20:16:00 Cristóbal [address] [place] 3.430.2.7 Hosp shai .3.174091 l .8 2022-02-12 2022-02-12 Orders Lopez, 1.2.840.1 [id number] 63452 89741 Methodi 00:00:00 00:00:00 Only Maureen 84777.1.[address] 3.430.2.7 Hospit a .3.027730 l .8 2022-02-12 2022-02-12 Orders Lopez, 1.2.840.1 [id number] 15714 Methodi 00:00:00 00:00:00 Only Maureen 05592.1.[address] 3.430.2.7 Hospit a .3.550216 l .8 2022-02-11 2022-02-11 Orders Jessica, 1.2.840.1 [id number] 70675 Methodi 00:00:00 00:00:00 Only Maureen 24929.1.[address] 3.430.2.7 Hospit a .3.621516 l .8 2022-02-11 2022-02-11 Telephone Prasanth, 1.2.840.1 [id number] 2099 206818 Methodi 00:00:00 00:00:00 Eddie Franco 73626.1.[address] 3.430.2.7 Hospit a .3.726081 l .8 2022-02-11 2022-02-11 Orders Jessica, 1.2.840.1 [id number] 08556 Methodi 00:00:00 00:00:00 Only Maureen 17773.1.[address] 3.430.2.7 Hospit a .3.613773 l .8 2022-02-11 2022-02-11 Telephone Prasanth, 1.2.840.1 [id number] 2100 237790 Methodi 00:00:00 00:00:00 Eddie Franco 04898.1.[address] 3.430.2.7 Hospit a .3.156117 l .8 2022-02-09 2022-02-09 Outpatient COH [facility] PDPFCCG ETQ COH 00:00:00 00:00:00 [id number] 2022-02-09 2022-02-09 Telephone Prasanth, 1.2.840.1 [id number] 2099 474113 Methodi 00:00:00 00:00:00 Eddie Franco 56943.1.[address] 3.430.2.7 Hospit a .3.997914 l .8 2022-02-09 2022-02-09 Telephone Prasanth, 1.2.840.1 [id number] 2100 952945 Methodi 00:00:00 00:00:00 Eddie Franco 61378.1.[address] 3.430.2.7 Hospit a .3.988928 l .8 2022-02-05 2022-02-05 Lab Prasanth, 1.2.840.1 [id number] 129698 2891 Methodi 10:50:00 10:55:00 Eddie Franco 86835.1.[address] 3.430.2.7 Hospit a .3.177338 l .8 2022-02-05 2022-02-05 Lab Prasanth, 1.2.840.1 [id number] 890332 3299 Methodi 10:50:00 10:55:00 Eddie Franco 34739.1.[address] 3.430.2.7 Hospit a .3.428925 l .8 2022-02-05 2022-02-05 Office Prasanth, 1.2.840.1 [id number] 247385 7357 Methodi 09:40:00 10:31:06 Visit Eddie Franco 47544.1.[address] 3.430.2.7 Hospit a .3.062131 l .8 2022-02-05 2022-02-05 Office Prasanth, 1.2.840.1 [id number] 036068 8805 Methodi 09:40:00 10:31:06 Visit Eddie Franco 20831.1.[address] 3.430.2.7 Hospit a .3.085678 l .8 2022-02-05 2022-02-05 Travel 1.2.840.1 1.2.582.993 0467 575675 Methodi 00:00:00 00:00:[address] 3.430.2.7 0.2.7.3.698 Ho spita .3.103779 084.8 l .8 2022-02-05 2022-02-05 Refill Istre, 1.2.840.1 [id number] 187096 1860 Methodi 00:00:00 00:00:[address] [place] 3.430.2.7 Hospi ta .3.863701 l .8 2022-02-05 2022-02-05 Refill Istre, 1.2.840.1 [id number] 078318 5599 Methodi 00:00:00 00:00:[address] [place] 3.430.2.7 Hospi ta .3.571343 l .8 2022-02-05 2022-02-05 Travel 1.2.840.1 1.2.749.791 5116 778729 Methodi 00:00:00 00:00:[address] 3.430.2.7 0.2.7.3.698 Ho spita .3.318325 084.8 l .8 2022-02-03 2022-02-03 Telephone Prasanth, 1.2.840.1 [id number] 2099 697220 Methodi 00:00:00 00:00:00 Eddie Franco 68608.1.[address] 3.430.2.7 Hospit a .3.217305 l .8 2022-02-03 2022-02-03 Telephone Prasanth, 1.2.840.1 [id number] 2099 414584 Methodi 00:00:00 00:00:00 Eddie Franco 08324.1.[address] 3.430.2.7 Hospit a .3.818571 l .8 2022-01-01 2022-01-01 Telephone Alessio, 1.2.840.1 [id number] 2099 751927 Methodi 00:00:00 00:00:[address] 3.430.2.7 Hospit a .3.200138 l .8 2022-01-01 2022-01-01 Telephone Mccallum, 1.2.840.1 [id number] 2099 766686 Methodi 00:00:00 00:00:[address] 3.430.2.7 Hospit a .3.284672 l .8 2021-12-26 2021-12-26 Surgery Small, 1.2.840.1 [id number] 601394 2877 Methodi 11:00:00 11:45:[address] [place] 3.430.2.7 Hospit a .3.336164 l .8 2021-12-26 2021-12-26 Surgery [facility], 1.2.840.1 [id number] 833392 3669 Methodi 11:00:00 11:45:[address] [place] 3.430.2.7 Hospit a .3.351141 l .8 2021-12-26 2021-12-26 [facility], 1.2.840.1 [id number] 42526 Methodi 10:21:00 11:28:00 Encounter Proctor 60088.1.[address] [place] 3.430.2.7 Hospit a .3.141246 l .8 2021-12-26 2021-12-26 [facility], 1.2.840.1 [id number] 56923 04331 Methodi 10:21:00 11:28:00 Encounter Proctor 20996.1.[address] [place] 3.430.2.7 Hospit a .3.151029 l .8 2021-12-26 2021-12-26 Anesthesia Hans Casper 1.2.840.1 [id number] Methodi 10:44:00 11:06:00 Event Edward 71528.1.[address] 3.430.2.7 Hospit a .3.285703 l .8 2021-12-26 2021-12-26 Anesthesia Hans Casper 1.2.840.1 [id number] Methodi 10:44:00 11:06:00 Event Edward 44950.1.[address] 3.430.2.7 Hospit a .3.055116 l .8 2021-12-26 2021-12-26 Travel 1.2.840.1 1.2.353.736 4982 590193 Methodi 00:00:00 00:00:[address] 3.430.2.7 0.2.7.3.698 Ho spita .3.396931 084.8 l .8 2021-12-26 2021-12-26 Travel 1.2.840.1 1.2.447.028 8854 027889 Methodi 00:00:00 00:00:[address] 3.430.2.7 0.2.7.3.698 Ho spita .3.795646 084.8 l .8 2021-12-24 2021-12-24 Lab Small, 1.2.840.1 [id number] 329879 7447 Methodi 08:00:00 08:15:[address] [place] 3.430.2.7 Hospit a .3.130776 l .8 2021-12-24 2021-12-24 Lab Small, 1.2.840.1 [id number] 079608 8149 Methodi 08:00:00 08:15:[address] [place]an 3.430.2.7 Hospit a .3.568536 l .8 2021-12-24 2021-12-24 Orders Marc, 1.2.840.1 [id number] 338695 7502 Methodi 00:00:00 00:00:00 Only Kortney 59378.1.[address] 3.430.2.7 Hospit a .3.287022 l .8 2021-12-24 2021-12-24 Orders Marc, 1.2.840.1 [id number] 283765 6309 Methodi 00:00:00 00:00:00 Only Kortney 35910.1.[address] 3.430.2.7 Hospit a .3.405985 l .8 2021-12-18 2021-12-18 Office Prasanth, 1.2.840.1 [id number] 480936 4778 Methodi 11:00:00 13:02:01 Visit Eddie Franco 99659.1.[address] 3.430.2.7 Hospit a .3.363283 l .8 2021-12-18 2021-12-18 Office Prasanth, 1.2.840.1 [id number] 572258 7444 Methodi 11:00:00 13:02:01 Visit Eddie Franco 50191.1.[address] 3.430.2.7 Hospit a .3.880814 l .8 2021-12-18 2021-12-18 Travel 1.2.840.1 1.2.901.752 8584 655974 Methodi 00:00:00 00:00:[address] 3.430.2.7 0.2.7.3.698 Ho spita .3.991752 084.8 l .8 2021-12-18 2021-12-18 Travel 1.2.840.1 1.2.371.581 2139 421272 Methodi 00:00:00 00:00:[address] 3.430.2.7 0.2.7.3.698 Ho spita .3.959918 084.8 l .8 2021-12-16 2021-12-16 Office Doug Estevez [facility] Encounter/ Legacy 00:00:00 00:00:00 Visit Joey Maggie Bijan [id number] Counts Include 234 [facility] At [facility] 204933 [facility] 2021-12-09 2021-12-09 Refill Leggett, 1.2.840.1 [id number] 2099 804908 Methodi 00:00:00 00:00:[address] 3.430.2.7 Hospit a .3.908277 l .8 2021-12-09 2021-12-09 Refill Leggett, 1.2.840.1 [id number] 2099 824186 Methodi 00:00:00 00:00:[address] 3.430.2.7 Hospit a .3.954464 l .8 2021-11-28 2021-11-28 Office Carly 1.2.840.1 [id number] 807 4080896 Methodi 10:15:00 10:52:48 Visit Pimpradomigno 19046.1.[address] 3.430.2.7 Hospit a .3.777118 l .8 2021-11-28 2021-11-28 Office Carly, 1.2.840.1 [id number] 457 8492635 Methodi 10:15:00 10:52:48 [place] [address].1.[address] 3.430.2.7 Hospit a .3.222351 l .8 2021-11-28 2021-11-28 Travel 1.2.840.1 1.2.908.610 9105 063499 Methodi 00:00:00 00:00:[address] 3.430.2.7 0.2.7.3.698 Ho spita .3.542552 084.8 l .8 2021-11-28 2021-11-28 Travel 1.2.840.1 1.2.578.413 3137 837162 Methodi 00:00:00 00:00:[address] 3.430.2.7 0.2.7.3.698 Ho spita .3.457051 084.8 l .8 2021-11-17 2021-11-17 Office Fabby, 1.2.840.1 [id number] 884409 8527 Methodi 09:00:00 09:30:00 Visit Juana 38909.1.[address] [place] 3.430.2.7 Hospit a .3.248526 l .8 2021-11-17 2021-11-17 Office Fabby, 1.2.840.1 [id number] 228717 5178 Methodi 09:00:00 09:30:00 Visit Juana 84049.1.[address] [place] 3.430.2.7 Hospit a .3.794648 l .8 2021-11-17 2021-11-17 Travel 1.2.840.1 1.2.817.129 5672 451763 Methodi 00:00:00 00:00:[address] 3.430.2.7 0.2.7.3.698 Ho spita .3.854071 084.8 l .8 2021-11-17 2021-11-17 Travel 1.2.840.1 1.2.960.841 5861 036623 Methodi 00:00:00 00:00:[address] 3.430.2.7 0.2.7.3.698 Ho spita .3.969554 084.8 l .8 2021-11-14 2021-11-14 Orders Istre, 1.2.840.1 [id number] 537016 9488 Methodi 00:00:00 00:00:00 Only Shell 07147.1.[address] [place] 3.430.2.7 Hospi ta .3.194635 l .8 2021-11-14 2021-11-14 Orders Istre, 1.2.840.1 [id number] 265650 2740 Methodi 00:00:00 00:00:00 Only Shell 32925.1.[address] Doe 3.430.2.7 Hospi ta .3.478537 l .8 2021-11-11 2021-11-11 Telemedici Istre, 1.2.840.1 [id number] 886 8981354 Methodi 10:00:00 10:40:34 ne Shell 39245.1.[address] [place] 3.430.2.7 Hospi ta .3.711672 l .8 2021-11-11 2021-11-11 Telemedici Istre, 1.2.840.1 [id number] 273 4859755 Methodi 10:00:00 10:40:34 ne Shell 56405.1.[address] [place] 3.430.2.7 Hospi ta .3.199167 l .8 2021-11-07 2021-11-07 Emergency Noel, 1.2.840.1 [id number] 2099 703757 Methodi 14:04:00 15:46:[address] Kirsten 3.430.2.7 Hospit a .3.357407 l .8 2021-11-07 2021-11-07 Emergency Noel, 1.2.840.1 [id number] 2099 786645 Methodi 14:04:00 15:46:[address] [place]irsten 3.430.2.7 Hospit a .3.716000 l .8 2021-11-07 2021-11-07 Travel 1.2.840.1 1.2.238.742 5802 359034 Methodi 00:00:00 00:00:[address] 3.430.2.7 0.2.7.3.698 Ho spita .3.218548 084.8 l .8 2021-11-07 2021-11-07 Travel 1.2.840.1 1.2.819.648 0138 682572 Methodi 00:00:00 00:00:[address] 3.430.2.7 0.2.7.3.698 Ho spita .3.051356 084.8 l .8 2021-11-03 2021-11-03 Lab Staci, 1.2.840.1 877690691 205656 2277 Methodi 08:25:00 08:30:[address] Hasan 3.430.2.7 Hospit a .3.018937 l .8 2021-11-03 2021-11-03 Lab Small, 1.2.840.1 568963832 352994 9091 Methodi 08:25:00 08:30:[address] [place]an 3.430.2.7 Hospit a .3.033944 l .8 2021-11-03 2021-11-03 Telephone Alessio, 1.2.840.1 [id number] 2100 319936 Methodi 00:00:00 00:00:[address] 3.430.2.7 Hospit a .3.877099 l .8 2021-11-03 2021-11-03 Travel 1.2.840.1 1.2.556.250 2449 656459 Methodi 00:00:00 00:00:[address] 3.430.2.7 0.2.7.3.698 Ho spita .3.319337 084.8 l .8 2021-11-03 2021-11-03 Outpatient [facility] [id number] 623 [place] 00:00:00 00:00:00 PROCTOR [address] 2021-11-03 2021-11-03 Telephone Alessio, 1.2.840.1 [id number] 2100 813499 Methodi 00:00:00 00:00:[address] 3.430.2.7 Hospit a .3.538156 l .8 2021-11-03 2021-11-03 Travel 1.2.840.1 1.2.908.271 1471 324844 Methodi 00:00:00 00:00:[address] 3.430.2.7 0.2.7.3.698 Ho spita .3.926111 084.8 l .8 2021-10-29 2021-10-29 Documentat Binta, 1.2.840.1 [id number] 2 [id number] Methodi 00:00:00 00:00:00 ion Amanda 27813.1.[address] 3.430.2.7 Hospit a .3.566175 l .8 2021-10-29 2021-10-29 Prep for Binta, 1.2.840.1 [id number] 505 0759853 Methodi 00:00:00 00:00:00 Surgery Amanda 56678.1.[address] 3.430.2.7 Hospit a .3.005365 l .8 2021-10-29 2021-10-29 Telephone Binta, 1.2.840.1 [id number] 21 [id number] Methodi 00:00:00 00:00:[address] 3.430.2.7 Hospit a .3.083809 l .8 2021-10-29 2021-10-29 Travel 1.2.840.1 1.2.079.109 9288 503191 Methodi 00:00:00 00:00:[address] 3.430.2.7 0.2.7.3.698 Ho spita .3.883208 084.8 l .8 2021-10-29 2021-10-29 Documentat Judd, 1.2.840.1 [id number] 2 [id number] Methodi 00:00:00 00:00:00 ion Amanda 34393.1.[address] 3.430.2.7 Hospit a .3.641522 l .8 2021-10-29 2021-10-29 Prep for Judd, 1.2.840.1 707343457 812 3801651 Methodi 00:00:00 00:00:00 Surgery Amanda [address]496.1.[address] 3.430.2.7 Hospit a .3.595005 l .8 2021-10-29 2021-10-29 Telephone Judd, 1.2.840.1 [id number] 21 [id number] Methodi 00:00:00 00:00:[address] 3.430.2.7 Hospit a .3.544512 l .8 2021-10-29 2021-10-29 Travel 1.2.840.1 1.2.176.986 3259 075116 Methodi 00:00:00 00:00:[address] 3.430.2.7 0.2.7.3.698 Ho spita .3.798988 084.8 l .8 2021-10-22 2021-10-22 Office Kem, 1.2.840.1 [id number] 499 7117539 Methodi 09:40:00 10:17:00 Visit Rebecca Nguyen 15050.1.[address] 3.430.2.7 Hospit a .3.810052 l .8 2021-10-22 2021-10-22 Office Kem, 1.2.840.1 [id number] 136 0347992 Methodi 09:40:00 10:17:00 Visit Rebecca Nguyen 93209.1.[address] 3.430.2.7 Hospit a .3.803144 l .8 2021-10-22 2021-10-22 Travel 1.2.840.1 1.2.068.939 9998 913989 Methodi 00:00:00 00:00:[address] 3.430.2.7 0.2.7.3.698 Ho spita .3.444445 084.8 l .8 2021-10-22 2021-10-22 Travel 1.2.840.1 1.2.912.270 8853 720452 Methodi 00:00:00 00:00:[address] 3.430.2.7 0.2.7.3.698 Ho spita .3.008000 084.8 l .8 2021-10-14 2021-10-15 Emergency Adry, 1.2.840.1 [id number] 266 [id number] Methodi 21:57:00 00:06:00 José H [address]82.1.[address] 3.430.2.7 Hospit a .3.136367 l .8 2021-10-14 2021-10-15 Emergency Adry, 1.2.840.1 [id number] 886 [id number] Methodi 21:57:00 00:06:00 José H [address]297.1.[address] 3.430.2.7 Hospit a .3.951928 l .8 2021-10-12 2021-10-12 Emergency Hudson, 1.2.840.1 [id number] 2099 550405 Methodi 10:13:00 14:37:00 Trung Lazcano. [address]456.1.[address] 3.430.2.7 Hospit a .3.448720 l .8 2021-10-12 2021-10-12 Emergency [place], 1.2.840.1 [id number] 2100 698012 Methodi 10:13:00 14:37:00 Trung Swann 59480.1.[address] 3.430.2.7 Hospit a .3.129611 l .8 2021-10-09 2021-10-09 Telephone [facility] 1.2.840.1 [id number] Methodi 00:00:00 00:00:[address] 3.430.2.7 Hospit a .3.301402 l .8 2021-10-09 2021-10-09 Telephone [facility] 1.2.840.1 [id number] Methodi 00:00:00 00:00:[address] 3.430.2.7 Hospit a .3.748388 l .8 2021-10-09 2021-10-09 Orders Istre, 1.2.840.1 [id number] 233548 9387 Methodi 00:00:00 00:00:00 Only Shell 42798.1.[address] Doe 3.430.2.7 Hospi ta .3.329045 l .8 2021-10-09 2021-10-09 Telephone [facility] 1.2.840.1 [id number] Methodi 00:00:00 00:00:[address] 3.430.2.7 Hospit a .3.373812 l .8 2021-10-09 2021-10-09 Telephone [facility] 1.2.840.1 [id number] Methodi 00:00:00 00:00:[address] 3.430.2.7 Hospit a .3.431396 l .8 2021-10-09 2021-10-09 Orders Istre, 1.2.840.1 [id number] 7214 Methodi 00:00:00 00:00:00 Only Shell 39953.1.[address] Doe 3.430.2.7 Hospi ta .3.176247 l .8 2021-10-02 2021-10-02 Telephone Lazarus, 1.2.840.1 [id number] 269 [id number] Methodi 00:00:00 00:00:[address] 3.430.2.7 Hospit a .3.647948 l .8 2021-10-02 2021-10-02 Telephone Lazarus, 1.2.840.1 [id number] 898 [id number] Methodi 00:00:00 00:00:[address] 3.430.2.7 Hospit a .3.070928 l .8 2021-09-30 2021-09-30 Surgery Alexandria, 1.2.840.1 [id number] 009 [id number] Methodi 07:15:00 09:02:00 Rebeccawellington Nguyen [address]505.[address] 3.430.2.7 Hospit a .3.364131 l .8 2021-09-30 2021-09-30 Surgery [place], 1.2.840.1 [id number] 556 [id number] Methodi 07:15:00 09:02:00 Rebeccawellington Nguyen [address] 3.430.2.7 Hospit a .3.205599 l .8 2021-09-30 2021-09-30 [facility], 1.2.840.1 [id number] 21 [id number] Methodi 06:02:00 08:50:00 Encounter Rebecca Nguyen 75527.1.[address] 3.430.2.7 Hospit a .3.608106 l .8 2021-09-30 2021-09-30 [facility], 1.2.840.1 [id number] 21 [id number] Methodi 06:02:00 08:50:00 Encounter Rebecca Nguyen 49225.1.[address] 3.430.2.7 Hospit a .3.229098 l .8 2021-09-30 2021-09-30 Anesthesia Tomas Mattson W. 1.2.840.1 1045 81207 [id number] Methodi 07:05:00 08:04:00 Event Sunita Marie 83850.1.[address] 3.430.2.7 Hospit a .3.431063 l .8 2021-09-30 2021-09-30 Anesthesia Tomas Mattson W. 1.2.840.1 1045 70808 [id number] Methodi 07:05:00 08:04:00 Event Sunita Marie 93276.1.[address] 3.430.2.7 Hospit a .3.580469 l .8 2021-09-26 2021-09-26 [facility] 2100 635925 [place] 00:00:00 00:00:00 REBECCA Baumann Method i st 2021-09-19 2021-09-19 Travel 1.2.840.1 1.2.943.340 4159 307808 Methodi 00:00:00 00:00:[address] 3.430.2.7 0.2.7.3.698 Ho spita .3.117172 084.8 l .8 2021-09-19 2021-09-19 Orders Marrero, 1.2.840.1 [id number] 2099 [id number] Methodi 00:00:00 00:00:00 Only Sharon 46498.1.[address] 3.430.2.7 Hospit a .3.048665 l .8 2021-09-19 2021-09-19 Orders Tavares, 1.2.840.1 [id number] 049955 9797 Methodi 00:00:00 00:00:00 Only Peggy 85851.1.[address] 3.430.2.7 Hospit a .3.464969 l .8 2021-09-19 2021-09-19 Travel 1.2.840.1 1.2.457.098 0387 483612 Methodi 00:00:00 00:00:00 85368.1.1 350.1.13.43 [address] 3.430.2.7 0.2.7.3.698 spita .3.614387 084.8 l .8 2021-09-19 2021-09-19 Orders Marrero, 1.2.840.1 609009003 2100 558191 Methodi 00:00:00 00:00:00 Only Sharon 42332.1.[address] 3.430.2.7 Hospit a .3.391975 l .8 2021-09-19 2021-09-19 Orders Tavares, 1.2.840.1 589750034 077400 4993 Methodi 00:00:00 00:00:00 Only Peggy 25378.1.[address] 3.430.2.7 Hospit a .3.675205 l .8 2021-09-18 2021-09-18 Orders Propes, 1.2.840.1 725312132 945749 0217 Methodi 00:00:00 00:00:00 Only Pina 49763.1.[address] 3.430.2.7 Hospit a .3.303134 l .8 2021-09-18 2021-09-18 Orders Propes, 1.2.840.1 687209269 962879 4179 Methodi 00:00:00 00:00:00 Only Pina [address]243.1.[address] 3.430.2.7 Hospit a .3.393161 l .8 2021-09-14 2021-09-14 Orders Tavares, 1.2.840.1 050378376 675824 5058 Methodi 00:00:00 00:00:00 Only Peggy 04130.1.[address] 3.430.2.7 Hospit a .3.443580 l .8 2021-09-14 2021-09-14 Orders Tavares, 1.2.840.1 751746995 448991 5964 Methodi 00:00:00 00:00:00 Only Peggy 39553.1.[address] 3.430.2.7 Hospit a .3.856896 l .8 2021-09-11 2021-09-11 Office Tavares, 1.2.840.1 436097856 638738 5077 Methodi 15:50:00 16:55:49 Visit Peggy 52787.1.[address] 3.430.2.7 Hospit a .3.256233 l .8 2021-09-11 2021-09-11 Office Tavares, 1.2.840.1 584743753 315764 3449 Methodi 15:50:00 16:55:49 Visit Peggy 10777.1.[address] 3.430.2.7 Hospit a .3.294548 l .8 2021-09-11 2021-09-11 Travel 1.2.840.1 1.2.873.749 8301 496733 Methodi 00:00:00 00:00:[address] 3.430.2.7 0.2.7.3.698 Ho spita .3.167981 084.8 l .8 2021-09-11 2021-09-11 Travel 1.2.840.1 1.2.181.809 4523 216111 Methodi 00:00:00 00:00:[address] 3.430.2.7 0.2.7.3.698 Ho spita .3.610968 084.8 l .8 2021-09-10 2021-09-10 Office Kem, 1.2.840.1 [id number] 064 2026022 Methodi 10:40:00 11:03:05 Visit Rebecca Nguyen 32735.1.[address] 3.430.2.7 Hospit a .3.505178 l .8 2021-09-10 2021-09-10 Office Kem, 1.2.840.1 581098714 324 7383833 Methodi 10:40:00 11:03:05 Visit Rebecca Nguyen 85698.1.[address] 3.430.2.7 Hospit a .3.656674 l .8 2021-09-10 2021-09-10 [facility] Edmundo, 1.2.840.1 [id number] 2099 276496 Methodi 00:00:00 00:00:00 Only Jami 53962.1.[address] 3.430.2.7 Hospit a .3.582432 l .8 2021-09-10 2021-09-10 Jaclyn Wyatt, 1.2.840.1 [id number] 2099 694413 Methodi 00:00:00 00:00:00 Only Jami 14695.1.[address] 3.430.2.7 Hospit a .3.408164 l .8 2021-09-10 2021-09-10 [facility] 2100 350814 [place] 00:00:00 00:00:00 REBECCA [address] 2021-08-31 2021-08-31 Refill Istre, 1.2.840.1 560535905 855294 5140 Methodi 00:00:00 00:00:[address] Doe 3.430.2.7 Hospi ta .3.333573 l .8 2021-08-31 2021-08-31 Refill Prasanth, 1.2.840.1 167569061 565012 9447 Methodi 00:00:00 00:00:00 Eddie Franco 32474.1.[address] 3.430.2.7 Hospit a .3.816558 l .8 2021-08-31 2021-08-31 Refill Istre, 1.2.840.1 [id number] 087712 4925 Methodi 00:00:00 00:00:[address] Doe 3.430.2.7 Hospi ta .3.883342 l .8 2021-08-31 2021-08-31 Refill Prasanth, 1.2.840.1 482902245 481242 3163 Methodi 00:00:00 00:00:00 Eddie Franco 90023.1.[address] 3.430.2.7 Hospit a .3.519645 l .8 2021-08-29 2021-08-29 Lamberto Salcedo, 1.2.840.1 [id number] 2099 982545 Methodi 00:00:00 00:00:00 [place] Ray 47786.1.[address] 3.430.2.7 Hospit a .3.819524 l .8 2021-08-29 2021-08-29 Orders Istre, 1.2.840.1 [id number] 158954 5660 Methodi 00:00:00 00:00:00 Only Shell 13703.1.[address] [place] 3.430.2.7 Hospi ta .3.985297 l .8 2021-08-29 2021-08-29 Telephone Denisse, 1.2.840.1 [id number] 2099 289695 Methodi 00:00:00 00:00:00 [place] Ray 84666.1.[address] 3.430.2.7 Hospit a .3.374498 l .8 2021-08-29 2021-08-29 Orders Istre, 1.2.840.1 783041555 568753 2144 Methodi 00:00:00 00:00:00 Only Shell 52265.1.[address] Doe 3.430.2.7 Hospi ta .3.892057 l .8 2021-08-28 2021-08-28 Travel 1.2.840.1 1.2.574.105 1880 840777 Methodi 00:00:00 00:00:[address] 3.430.2.7 0.2.7.3.698 Ho spita .3.099903 084.8 l .8 2021-08-28 2021-08-28 Travel 1.2.840.1 1.2.865.601 4360 628370 Methodi 00:00:00 00:00:[address] 3.430.2.7 0.2.7.3.698 Ho spita .3.809928 084.8 l .8 2021-08-26 2021-08-26 Emergency Mazin, 1.2.840.1 [id number] 2099 583775 Methodi 16:36:00 20:08:[address] Adrienne 3.430.2.7 Hospit a .3.524542 l .8 2021-08-26 2021-08-26 Emergency Mazin, 1.2.840.1 167295430 2100 346379 Methodi 16:36:00 20:08:[address] Adrienne 3.430.2.7 Hospit a .3.279508 l .8 2021-08-26 2021-08-26 Orders Colmenter, 1.2.840.1 685330603 844 4298823 Methodi 00:00:00 00:00:00 Only Linda 95523.1.[address] 3.430.2.7 Hospit a .3.292178 l .8 2021-08-26 2021-08-26 Orders Colmenter, 1.2.840.1 158511468 659 0103658 Methodi 00:00:00 00:00:00 Only Linda 77801.1.[address] 3.430.2.7 Hospit a .3.515363 l .8 2021-08-21 2021-08-21 Orders Colmenter, 1.2.840.1 301968416 413 5280258 Methodi 00:00:00 00:00:00 Only Linda 59838.1.[address] 3.430.2.7 Hospit a .3.578662 l .8 2021-08-21 2021-08-21 Orders Colmenter, 1.2.840.1 868582110 817 5249448 Methodi 00:00:00 00:00:00 Only Linda 92772.1.[address] 3.430.2.7 Hospit a .3.206389 l .8 2021-08-14 2021-08-14 Office Colmenter, 1.2.840.1 925043285 190 8999624 Methodi 11:00:00 13:05:34 Visit Linda 67481.1.[address] 3.430.2.7 Hospit a .3.290725 l .8 2021-08-14 2021-08-14 Office Colmenter, 1.2.840.1 592147049 490 7371723 Methodi 11:00:00 13:05:34 Visit Linda 80352.1.[address] 3.430.2.7 Hospit a .3.646055 l .8 2021-08-12 2021-08-12 Office Prasanth, 1.2.840.1 757560749 999207 6851 Methodi 10:00:00 11:08:57 Visit Eddie Franco 24271.1.[address] 3.430.2.7 Hospit a .3.848439 l .8 2021-08-12 2021-08-12 Travel 1.2.840.1 1.2.521.699 1829 372683 Methodi 00:00:00 00:00:[address] 3.430.2.7 0.2.7.3.698 Ho spita .3.869731 084.8 l .8 2021-08-08 2021-08-08 Emergency EM Lynda, HCAKW SHIRLENE [id number] [facility] 12:48:00 19:41:00 Di 70 [facility] 2021-08-08 2021-08-08 Emergency EM Lynda, HCAKW HCAKW [id number] [facility] 12:48:00 19:41:00 Di [id number] [facility] 2021-08-08 2021-08-08 Outpatient Lynda, HCACL LABO [id number] 165 [facility] 19:09:00 19:09:00 Di 00 [facility] 2021-08-08 2021-08-08 Transcribe Alicia, 1.2.840.1 [id number] 540 [id number] Methodi 00:00:00 00:00:00 Orders Shell 02503.1.[address] [place] 3.430.2.7 Hospi ta .3.634891 l .8 2021-08-06 2021-08-06 Emergency Mario Myles 1.2.840.1 [id number] Methodi 14:54:00 18:50:[address] 3.430.2.7 Hospit a .3.843016 l .8 2021-08-06 2021-08-06 Travel 1.2.840.1 1.2.693.094 4045 351958 Methodi 00:00:00 00:00:[address] 3.430.2.7 0.2.7.3.698 Ho spita .3.033818 084.8 l .8 2021-08-04 2021-08-04 [facility], 1.2.840.1 [id number] 808457 3526 Methodi 14:20:00 15:33:19 Visit Shell 62192.1.[address] [place] 3.430.2.7 Hospi ta .3.155188 l .8 2021-08-04 2021-08-04 Travel 1.2.840.1 1.2.863.583 0443 600002 Methodi 00:00:00 00:00:[address] 3.430.2.7 0.2.7.3.698 Ho spita .3.657722 084.8 l .8 2021-07-31 2021-07-31 Emergency Nelson Villagran 1.2.840.1 [id number] Methodi 21:39:00 23:28:[address] 3.430.2.7 Hospit a .3.111381 l .8 2021-07-31 2021-07-31 Travel 1.2.840.1 1.2.496.261 8034 873301 Methodi 00:00:00 00:00:[address] 3.430.2.7 0.2.7.3.698 Ho spita .3.512804 084.8 l .8 2021-07-30 2021-07-30 Emergency MarioMyles 1.2.840.1 309365782 [id number] Methodi 13:34:00 17:16:[address] 3.430.2.7 Hospit a .3.610786 l .8 2021-07-30 2021-07-30 Telephone Istre, 1.2.840.1 133504374 2099 360008 Methodi 00:00:00 00:00:[address] Doe 3.430.2.7 Hospi ta .3.452571 l .8 2021-07-28 2021-07-28 [facility] [id number] 879 [place] 00:00:00 00:00:[address] PEGGY [address] 2021-07-24 2021-07-24 Orders Lopez, 1.2.840.1 996278014 00596 Methodi 00:00:00 00:00:00 Only Maureen 54028.1.[address] 3.430.2.7 Hospit a .3.551190 l .8 2021-07-23 2021-07-23 Orders Istre, 1.2.840.1 682813626 224278 3330 Methodi 00:00:00 00:00:00 Only Shell 72768.1.[address] Doe 3.430.2.7 Hospi ta .3.805522 l .8 2021-07-21 2021-07-21 Orders Istre, 1.2.840.1 756171608 611375 1251 Methodi 00:00:00 00:00:00 Only Shell 81984.1.[address] Doe 3.430.2.7 Hospi ta .3.002198 l .8 2021-07-15 2021-07-15 Telephone Leggett, 1.2.840.1 988411504 [id number] Methodi 00:00:00 00:00:[address] 3.430.2.7 Hospit a .3.824085 l .8 2021-07-15 2021-07-15 Travel 1.2.840.1 1.2.343.381 3703 505707 Methodi 00:00:00 00:00:[address] 3.430.2.7 0.2.7.3.698 Ho spita .3.923341 084.8 l .8 2021-07-10 2021-07-10 Treatment Shell Vargas 1.2.840.1 [id number] Methodi 09:00:00 10:00:00 Peggy Esparza 38168.1.[address] Smooth [place] 3.430.2.7 H ospita .3.689874 l .8 2021-07-10 2021-07-10 Plan of 1.2.840.1 073023688 928257 3455 Methodi 00:00:00 00:00:[address] Documentat 3.430.2.7 Hos margie ion .3.230869 l .8 2021-07-09 2021-07-09 Travel 1.2.840.1 1.2.450.678 6770 536406 Methodi 00:00:00 00:00:[address] 3.430.2.7 0.2.7.3.698 Ho spita .3.753587 084.8 l .8 2021-07-09 2021-07-09 Orders Istre, 1.2.840.1 140870147 844277 3283 Methodi 00:00:00 00:00:00 Only Shell 09899.1.[address] Doe 3.430.2.7 Hospi ta .3.257329 l .8 2021-07-03 2021-07-03 Travel 1.2.840.1 1.2.393.936 8459 804964 Methodi 00:00:00 00:00:[address] 3.430.2.7 0.2.7.3.698 Ho spita .3.978939 084.8 l .8 2021-06-30 2021-06-30 Emergency Tyshawn, Nelson 1.2.840.1 [id number] Methodi 14:43:00 20:06:[address] 3.430.2.7 Hospit a .3.320458 l .8 2021-06-19 2021-06-19 Orders Madera, 1.2.840.1 616766326 786635 9607 Methodi 00:00:00 00:00:00 Only Susanne 60472.1.[address] 3.430.2.7 Hospit a .3.595983 l .8 2021-06-18 2021-06-18 Orders Tran, 1.2.840.1 560928137 442646 6193 Methodi 00:00:00 00:00:00 Only Kortney 14911.1.[address] 3.430.2.7 Hospit a .3.112466 l .8 2021-06-18 2021-06-18 Telephone Jessica, 1.2.840.1 [id number] 618 0895673 Methodi 00:00:00 00:00:[address] 3.430.2.7 Hospit a .3.360150 l .8 2021-06-16 2021-06-16 Office Prasanth, 1.2.840.1 351768757 169043 6743 Methodi 11:40:00 13:03:55 Visit Eddie Franco 25015.1.[address] 3.430.2.7 Hospit a .3.761601 l .8 2021-06-16 2021-06-16 Travel 1.2.840.1 1.2.496.754 5430 974069 Methodi 00:00:00 00:00:[address] 3.430.2.7 0.2.7.3.698 Ho spita .3.614174 084.8 l .8 2021-06-03 2021-06-03 Refill Madera, 1.2.840.1 309877691 126169 3425 Methodi 00:00:00 00:00:[address] 3.430.2.7 Hospit a .3.553729 l .8 2021-06-03 2021-06-03 Telephone Brady, 1.2.840.1 [id number] 2100 772255 Methodi 00:00:00 00:00:[address] 3.430.2.7 Hospit a .3.177140 l .8 2021-06-02 2021-06-02 Emergency Gunnar, 1.2.840.1 555313089 2 [id number] Methodi 10:56:00 13:23:00 Mario Crook 73344.1.1 606 s t 3.430.2.7 Hospit a .3.258175 l .8 2021-06-02 2021-06-02 Orders Iscorwin, 1.2.840.1 898087842 349800 6713 Methodi 00:00:00 00:00:00 Only Shell 40722.1.[address] Doe 3.430.2.7 Hospi ta .3.849641 l .8 2021-05-30 2021-05-30 Treatment Iscorwin, Shell [place] 1.2.840.1 [id number] Methodi 10:00:00 11:00:00 Smooth [place] [address]28.1.[address] 3.430.2.7 Hospit a .3.692223 l .8 2021-05-28 2021-05-28 Orders Istre, 1.2.840.1 321799286 466351 3615 Methodi 00:00:00 00:00:00 Only Shell 93241.1.[address] Doe 3.430.2.7 Hospi ta .3.770281 l .8 2021-05-27 2021-05-27 Travel 1.2.840.1 1.2.136.798 5460 913922 Methodi 00:00:00 00:00:[address] 3.430.2.7 0.2.7.3.698 Ho spita .3.300613 084.8 l .8 2021-05-19 2021-05-19 Evaluation Istre, Shell Pandeyd 1.2.840.1 445458415 [id number] Methodi 11:00:00 12:00:00 Tavares Peggy 96547.1.[address] [place], Smooth 3.430.2.7 H ospita .3.533152 l .8 2021-05-19 2021-05-19 Plan of 1.2.840.1 [id number] 201939 0384 Methodi 00:00:00 00:00:[address] Documentat 3.430.2.7 Hos margie ion .3.254035 l .8 2021-05-19 2021-05-19 Travel 1.2.840.1 1.2.706.446 4324 555394 Methodi 00:00:00 00:00:[address] 3.430.2.7 0.2.7.3.698 Ho spita .3.427757 084.8 l .8 2021-05-09 2021-05-09 Travel 1.2.840.1 1.2.162.884 3022 917841 Methodi 00:00:00 00:00:[address] 3.430.2.7 0.2.7.3.698 Ho spita .3.365077 084.8 l .8 2021-05-09 2021-05-09 Outpatient [facility] [id number] 977 [place] 00:00:00 00:00:[address] PEGGY [address] 2021-05-06 2021-05-06 Orders Iscorwin, 1.2.840.1 [id number] 573921 1420 Methodi 00:00:00 00:00:00 Only Shell 60504.1.[address] [place] 3.430.2.7 Hospi ta .3.020220 l .8 2021-05-05 2021-05-05 Outpatient [facility] [id number] 738 [place] 00:00:00 00:00:[address] PEGGY [address] 2021-05-04 2021-05-04 Emergency Oghogho, 1.2.840.1 [id number] 765 2710344 Methodi 14:39:00 18:56:[address] 3.430.2.7 Hospit a .3.103963 l .8 2021-05-04 2021-05-04 Travel 1.2.840.1 1.2.324.714 7970 606257 Methodi 00:00:00 00:00:[address] 3.430.2.7 0.2.7.3.698 Ho spita .3.397291 084.8 l .8 2021-05-02 2021-05-02 [facility] 29403 9559 [place] 00:00:00 00:00:00 [facility] 2021-04-30 2021-04-30 Travel 1.2.840.1 1.2.255.729 1249 176198 Methodi 00:00:00 00:00:[address] 3.430.2.7 0.2.7.3.698 Ho spita .3.683771 084.8 l .8 2021-04-28 2021-04-28 Orders Istre, 1.2.840.1 349737004 554075 7145 Methodi 00:00:00 00:00:00 Only Shell 09150.1.[address] Doe 3.430.2.7 Hospi ta .3.030784 l .8 2021-04-17 2021-04-17 Office Istre, 1.2.840.1 266846549 616681 7361 Methodi 15:00:00 15:00:06 Visit Shell 62119.1.[address] Doe 3.430.2.7 Hospi ta .3.834585 l .8 2021-04-16 2021-04-16 Travel 1.2.840.1 1.2.595.330 3975 870043 Methodi 00:00:00 00:00:[address] 3.430.2.7 0.2.7.3.698 Ho spita .3.124303 084.8 l .8 2021-04-12 2021-04-12 Emergency Svach, 1.2.840.1 [id number] 2099 988429 Methodi 15:47:00 22:48:00 Shine R 41430.1.[address] 3.430.2.7 Hospit a .3.252783 l .8 2021-04-08 2021-04-08 Travel 1.2.840.1 1.2.222.925 9623 742474 Methodi 00:00:00 00:00:[address] 3.430.2.7 0.2.7.3.698 Ho spita .3.258451 084.8 l .8 2021-03-28 2021-03-28 Office Rj Khoury [facility] [id number] [place] 08:30:00 09:30:00 Visit Jackie [facility] 2021-03-28 2021-03-28 [facility] 70727 6844 [place] 00:00:00 00:00:00 [facility] 2021-03-14 2021-03-14 [facility] 09344 1468 [place] 00:00:00 00:00:00 [facility] 2021-03-03 2021-03-03 Telephone Alicia, 1.2.840.1 [id number] 2099 [id number] Methodi 11:20:00 11:48:51 Consult Shell 33861.1.[address] Doe 3.430.2.7 Hospi ta .3.935044 l .8 2021-02-27 2021-02-27 Travel 1.2.840.1 1.2.425.999 5615 426884 Methodi 00:00:00 00:00:[address] 3.430.2.7 0.2.7.3.698 Ho spita .3.965123 084.8 l .8 2021-02-19 2021-02-19 Outpatient VESOLIS, [facility] 2100 [id number] [place] 00:00:00 00:00:00 PIMPRAPA 626 [address] 2021-02-17 2021-02-17 Outpatient [facility] [id number] 297 [place] 00:00:00 00:00:00 482 Method i 2021-02-17 2021-02-17 Outpatient STACI, [facility] [id number] 406 [place] 00:00:00 00:00:00 PROCTOR 706 Method i 2021-02-10 2021-02-10 Outpatient TAVARES, [facility] [id number] 790 [place] 00:00:00 00:00:00 PEGGY 856 Method i 2021-02-07 2021-02-07 Outpatient ALICIA, [facility] [id number] 637 [place] 00:00:00 00:00:00 SHELL 793 Method i 2021-01-30 2021-01-31 Outpatient IMELDA, [facility] 766 [id number] 174 [place] 00:00:00 00:00:00 KRISTY 451 Method i 2021-01-25 2021-01-25 Emergency KENA KILLIAN [facility] 064 31787 16130 [place] 00:00:00 00:00:00 190 Method i 2021-01-24 2021-01-24 Outpatient CARLY, [facility] 2100 [id number] [place] 00:00:00 00:00:00 PIMPRAPA 711 [place] [address] 2021-01-09 2021-01-09 Outpatient [facility] [id number] 646 [place] 00:00:00 00:00:00 247 Method i 2020-12-29 2020-12-29 Emergency VASQUEZ, [facility] 064 [id number] 98 [place] 00:00:00 00:00:00 CRISTÓBAL 225 Method i 2020-12-23 2020-12-23 Outpatient PRASANTH, [facility] [id number] 498 [place] 00:00:00 00:00:00 EDDIE 305 Method i 2020-12-11 2020-12-11 Emergency VASQUEZ, [facility] 064 [id number] 96 [place] 00:00:00 00:00:00 CRISTÓBAL 030 Method i 2020-12-08 2020-12-08 Emergency HUDSON, [facility] 064 [id number] 26 [place] 00:00:00 00:00:00 TRUNG 699 Method i 2020-11-25 2020-11-26 Office Doug Estevez [facility] Encounter/ Legacy 00:00:00 00:00:00 Visit Symone Moreau 854127 2732 Communi 708338 [facility] 2020-11-25 2020-11-26 Office Doug Estevez [facility] Encounter/ Legacy 00:00:00 00:00:00 Visit Symone Moreau 055780 0061 Communi 257576 [facility] 2020-11-18 2020-11-18 Outpatient SMALL, [facility] [id number] 074 [place] 00:00:00 00:00:00 PROCTOR 729 Method i 2020-11-02 2020-11-02 Emergency HALEY, [place] [address] 683 [id number] 062 [place] 00:00:00 00:00:00 ROGER 241 Method i 2020-10-29 2020-10-29 Outpatient SMALL, [facility] [id number] 857 [place] 00:00:00 00:00:00 PROCTOR 983 Method i 2020-10-25 2020-10-25 Outpatient VEJALTAGRACIAA, [facility] 2100 [id number] [place] 00:00:00 00:00:00 PIMPRAPA 573 Meth[address] 2020-10-24 2020-10-24 Outpatient VESOLIS, [facility] 2100 [id number] [place] 00:00:00 00:00:00 PIMPRAPA 921 [place] [address] 2020-10-18 2020-10-19 Emergency HOPE, [facility] 064 [id number] 58 [place] 00:00:00 00:00:00 TRUNG 724 Method i 2020-10-18 2020-10-18 Outpatient SMALL, [facility] [id number] 110 [place] 00:00:00 00:00:00 PROCTOR 224 Method i 2020-10-11 2020-10-11 Emergency HUDSON, [facility] 064 [id number] 52 [place] 00:00:00 00:00:00 TRUNG 080 Method i 2020-10-09 2020-10-09 Outpatient PRASANTH, [facility] [id number] 499 [place] 00:00:00 00:00:00 EDDIE 020 Method i 2020-10-01 2020-10-01 Outpatient AHMED, [facility] [id number] 980 [place] 00:00:00 00:00:00 MOHAMMAD [address] 2020-09-26 2020-09-26 Outpatient SMALL, [facility] [id number] 765 [place] 00:00:00 00:00:00 PROCTOR [address] 2020-09-13 2020-09-13 Outpatient PRASANTH, [facility] [id number] 045 [place] 00:00:00 00:00:00 EDDIE 249 Method i 2020-09-11 2020-09-11 Outpatient VEJPONGSA, [facility] [id number] [place] 00:00:00 00:00:00 PIMPRAPA 754 Meth[facility] di 2020-08-23 2020-08-23 Outpatient AHMED, [facility] [id number] [place] 00:00:00 00:00:00 MOHAMMAD 132 [facility] di 2020-08-19 2020-08-21 Outpatient MELTON, [facility] [id number] [place] 00:00:00 00:00:00 TRUNG 187 Method i 2020-07-31 2020-08-01 Outpatient ARREDONDO, [facility] [id number] [place] 00:00:00 00:00:00 RG 628 [place] 2020-07-16 2020-07-16 Emergency HOPE, [facility] 064 [id number] [place] 00:00:00 00:00:00 TRUNG 600 Method i 2020-07-05 2020-07-05 Outpatient BROCK, [facility] [id number] [place] 00:00:00 00:00:00 [facility] 2020-07-05 2020-07-05 Emergency VASQUEZ, [facility] 064 [id number] [place] 00:00:00 00:00:00 CRISTÓBAL [address] 2020-06-28 2020-06-28 Outpatient SMALL, [facility] [id number] [place] 00:00:00 00:00:00 PROCTOR [address] 2020-06-27 2020-06-27 Outpatient PRASANTH, [facility] [id number] [place] 00:00:00 00:00:00 EDDIE [address] 2020-06-24 2020-06-24 Outpatient ISTRE, [facility] [id number] [place] 00:00:00 00:00:00 SHELL 509 Method i 2020-06-19 2020-06-20 Emergency MANDAEN, [facility] 064 [id number] [place] 00:00:00 00:00:00 NADIM 685 Method i 2020-06-11 2020-06-11 Outpatient SMALL, [facility] [id number] [place] 00:00:00 00:00:00 PROCTOR [address] 2020-06-11 2020-06-11 Outpatient SMALL, [facility] [id number] [place] 00:00:00 00:00:00 PROCTOR 956 Method i 2020-06-06 2020-06-06 Outpatient ISTRE, [facility] [id number] [place] 00:00:00 00:00:00 SHELL 498 Method i 2020-06-03 2020-06-03 Outpatient ISTRE, [facility] [id number] [place] 00:00:00 00:00:00 SHELL [address] 2020-06-03 2020-06-03 Outpatient ISTRE, [facility] [id number] [place] 00:00:00 00:00:00 SHELL 363 Method i 2020-05-26 2020-05-27 Outpatient SMALL, [facility] [id number] [place] 00:00:00 00:00:00 HAYLEE 766 Method i 2020-05-24 2020-05-24 Emergency JOSSY, [facility] 064 [id number] [place] 00:00:00 00:00:00 BELKIS [address] 2020-05-23 2020-05-23 Emergency FORMAN, [facility] 064 [id number] [place] 00:00:00 00:00:00 TANIA [address] 2020 2020 Outpatient ISTRE, [facility] [id number] [place] 00:00:00 00:00:00 SHELL 882 Method i 2020 2020 Emergency KI, [facility] 064 [id number] [place] 00:00:00 00:00:00 KALIF 304 Method i 2020-05-20 2020-05-20 Outpatient ALICIA, [facility] [id number] [place] 00:00:00 00:00:00 SHELL 217 Method i 2020-05-13 2020-05-13 Outpatient WEST WARREN, [facility] [id number] [place] 00:00:00 00:00:00 TRACILELICEO Healt h 2020-05-11 2020-05-11 Emergency HOPE, [facility] 064 [id number] [place] 00:00:00 00:00:00 TRUNG 164 Method i 2020-05-07 2020-05-07 Outpatient ROGER RICARDO [facility] [id number] [place] 07:48:18 07:48:18 Health 2020-04-15 2020-04-15 Emergency KENA KILLIAN [facility] 064 [id number] [place] 00:00:00 00:00:00 597 Method i 2020-04-01 2020-04-01 Emergency KI, [facility] 064 [id number] [place] 00:00:00 00:00:00 KALIF 631 Method i 2020-03-23 2020-03-24 Inpatient CHRISTA, [facility] [id number] [place] 00:00:00 00:00:00 STEPHY 252 Method i 2020-03-23 2020-03-23 Emergency HOPE, [facility] 064 [id number] [place] 00:00:00 00:00:00 TRUNG 603 Method i 2020-03-20 2020-03-20 Emergency ALTAGRACIA VILLASENOR [facility] 064 [id number] [place] 00:00:00 00:00:00 875 Method i 2020-02-29 2020-03-01 Emergency DE CRANDALL, [facility] 064 [id number] [place] 00:00:00 00:00:00 EMY 73Toni García thodi 2020-02-05 2020-02-06 Emergency MORALESJAREDSALVADOR, [facility] 064 [id number] [place] 00:00:00 00:00:00 KEM 185 Meth john 2020-02-03 2020-02-03 Emergency DE CRANDALL, [facility]4 [id number] [place] 00:00:00 00:00:00 EMY 451 Me thodi 2019-12-20 2019-12-21 Emergency ENE, [place] [address] [id number] [place] 00:00:00 00:00:00 KEM 640 Meth john 2019-12-14 2019-12-14 Emergency KI, [place] [address] [id number] [place] 00:00:00 00:00:00 KALIF 126 Method i 2019-12-11 2019-12-11 Emergency HOPE, [place] [address] [id number] [place] 00:00:00 00:00:00 TRUNG 349 Method i 2019-12-08 2019-12-08 Emergency SUSHIL, [place] [address] [id number] [place] 00:00:00 00:00:00 ISAC 449 Me thodi 2019-11-24 2019-11-24 Outpatient ROGER RICARDO [facility] [id number] [place] 00:00:00 00:00:00 Health 2019-11-21 2019-11-21 Emergency NELSON VILLAGRAN [facility] [id number] [place] 00:00:00 00:00:00 015 Method i 2019-11-14 2019-11-14 Outpatient ROGER RICARDO [facility] [id number] [place] 06:55:06 06:55:06 Health 2019-11-13 2019-11-13 Outpatient [facility] [id number] [place] 00:00:00 00:00:00 Health 2019-11-10 2019-11-11 Emergency HOPE, [place] [address] [id number] [place] 00:00:00 00:00:00 TRUNG 398 Method i 2019-11-07 2019-11-07 Outpatient [facility] [id number] [place] 14:24:03 14:24:03 Health 2019-11-07 2019-11-07 Outpatient [facility] [facility] [id number] [place] 12:22:44 12:22:44 Health 2019-11-07 2019-11-07 Outpatient [facility] [id number] [place] 00:00:00 00:00:00 Health 2019-11-07 2019-11-07 Outpatient [facility] [id number] [place] 00:00:00 00:00:00 Health 2019-10-30 2019-10-30 Outpatient [facility] [id number] [place] 11:49:58 11:49:58 Health 2019-10-30 2019-10-30 Outpatient [facility] [id number] [place] 00:00:00 00:00:00 Health 2019-10-12 2019-10-12 Outpatient [facility] [id number] [place] 00:00:00 00:00:00 2019-10-10 2019-10-10 Outpatient [facility] [id number] [place] 08:15:33 08:15:33 Health 2019-10-09 2019-10-09 Outpatient [facility] [id number] [place] 00:00:00 00:00:00 2019-09-25 2019-09-25 Outpatient [facility] [id number] [place] 00:00:00 00:00:00 Health 2019-09-19 2019-09-19 Outpatient [facility] [id number] [place] 15:17:15 15:17:15 Health 2019-09-12 2019-09-12 Outpatient [facility] [id number] [place] 09:33:27 09:33:27 Health 2019-09-12 2019-09-12 Outpatient [facility] [id number] [place] 08:35:47 08:35:47 Health 2019-09-12 2019-09-12 Outpatient [facility] [id number] [place] 00:00:00 00:00:00 2019-09-09 2019-09-09 Emergency [facility] [id number] [place] 00:00:00 00:00:00 TRUNG [address] 2019-08-25 2019-08-25 Outpatient [facility] [id number] [place] 06:54:32 06:54:32 Health 2019-08-24 2019-08-24 Outpatient [facility] [id number] [place] 00:00:00 00:00:00 2019-08-23 2019-08-23 Outpatient [facility] [id number] [place] 00:00:00 00:00:00 Health 2019-08-05 2019-08-05 Emergency [facility] [id number] [place] 00:00:00 00:00:00 Aamir YAÑEZ [facility] [address] 2019-08-03 2019-08-03 Emergency [facility] [id number] [place] 00:00:00 00:00:[address] 2019-07-24 2019-07-24 Outpatient [facility] [id number] [place] 08:35:14 08:35:14 Health 2019-06-21 2019-06-21 Outpatient [facility] [id number] [place] 00:00:00 00:00:00 Health 2019-06-15 2019-06-16 Emergency [facility] [id number] [place] 00:00:00 00:00:[address] 2019-06-15 2019-06-15 Emergency [facility] [id number] [place] 14:03:00 14:03:00 Health 2019-06-14 2019-06-14 Outpatient [facility] [id number] [place] 00:00:00 00:00:00 [facility] 2019-06-08 2019-06-08 Outpatient [facility] [id number] [place] 13:49:26 13:49:26 Health 2019-06-08 2019-06-08 Outpatient [facility] [id number] [place] 13:11:00 13:11:00 [facility] 2019-06-08 2019-06-08 Outpatient [facility] [id number] [place] 00:00:00 00:00:00 [facility] 2019-06-07 2019-06-07 Emergency [facility] [id number] [place] 12:06:12 12:06:12 [facility] 2019-06-07 2019-06-07 Emergency [facility] [id number] [place] 10:57:48 10:57:48 Health 2019-03-15 2019-03-15 Outpatient [facility] [id number] [place] 14:00:36 14:00:36 [facility] 2019-03-15 2019-03-15 Outpatient [facility] [id number] [place] 12:20:09 12:20:09 Health 2019-03-15 2019-03-15 Outpatient [facility] [id number] [place] 00:00:00 00:00:00 [facility] 2019-01-25 2019-01-25 Outpatient [facility] [id number] [place] 10:20:47 10:20:47 Health 2019-01-13 2019-01-13 Outpatient [facility] [id number] [place] 10:25:55 10:25:55 Health 2019-01-03 2019-01-03 Outpatient [facility] [id number] [place] 10:33:43 10:33:43 Health 2019-01-03 2019-01-03 Outpatient [facility] [id number] [place] 08:40:50 08:40:50 Health 2019-01-03 2019-01-03 Outpatient [facility] [id number] [place] 07:58:31 07:58:31 Health 2019-01-03 2019-01-03 Outpatient [facility] [id number] [place] 00:00:00 00:00:00 Health 2018-12-29 2018-12-29 Outpatient [facility] [id number] [place] 00:00:00 00:00:00 Health 2018-12-27 2018-12-27 Outpatient [facility] [id number] [place] 00:00:00 00:00:00 Health 2018-12-26 2018-12-26 Outpatient [facility] [id number] [place] 16:37:58 16:37:58 Health 2018-12-09 2018-12-09 Outpatient [facility] [id number] [place] 16:51:56 16:51:56 Health 2018-12-09 2018-12-09 Outpatient [facility] [id number] [place] 14:15:31 14:15:31 Health 2018-12-09 2018-12-09 Outpatient [facility] [id number] [place] 00:00:00 00:00:00 [facility] 2018-11-26 2018-11-[address] [facility] [id number] [place] 16:08:40 16:08:40 [facility] 2018-01-17 2018-01-17 Outpatient E MYRNA CEDENO [facility] [id number] [place] 10:49:00 12:30:00 [facility] [place] 2017-12-28 2017-12-28 Outpatient E MILES [facility] [id number] [place] 10:12:00 12:25:00 PAUL [facility] 2017-12-20 2017-12-20 Outpatient E MYRNA CEDENO [facility] [id number] [place] 23:13:00 23:50:00 [facility] [place] 2017-10-15 2017-10-15 Outpatient E SHEIKH [facility] [id number] [place] 09:57:00 11:15:00 WAS [facility] Results Test Description Test Time Test Comments Results Result Comments Source ECG 12 lead 2022-03-24 04:27:49 Test Item Value Reference Range Interpretation Comme nts Ventricular rate (test code = 253) Atrial rate (test code = 255) MA interval (test code = 266) QRSD interval [...] of 28-NOV-2021 10:26,-No significant change was found- [address]2022-12-13 04:27:49 Test Item Value Reference Range Interpretation Comments Ventricular rate (test code = 253) Atrial rate (test code = 255) MA interval (test code = 266) QRSD interval [...] of 28-NOV-2021 10:26,-No significant change was found- [address]2022-12-13 04:27:49 Test Item Value Reference Range Interpretation Comments Ventricular rate (test code = 253) Atrial rate (test code = 255) MA interval (test code = 266) QRSD interval [...] of 28-NOV-2021 10:26,-No significant change was found- [address]2022-12-13 04:27:49 Test Item Value Reference Range Interpretation Comments Ventricular rate (test 71 code = 253) Atrial rate (test code 71 = 255) MA interval (test code 124 = 266) QRSD [...] of 28-NOV-2021 10:26,-No significant change was found- [address]2022-12-13 04:27:49 Test Item Value Reference Range Interpretation Comments Ventricular rate (test 71 code = 253) Atrial rate (test code 71 = 255) MA interval (test code 124 = 266) QRSD [...] of 28-NOV-2021 10:26,-No significant change was found- [address]2022-12-13 04:27:49 Test Item Value Reference Range Interpretation Comments Ventricular rate (test 71 code = 253) Atrial rate (test code 71 = 255) MA interval (test code 124 = 266) QRSD [...] of 28-NOV-2021 10:26,-No significant change was found- [facility]2022-11-10 23:39:00 Test Item Value Reference Range Interpretation Comments Urine culture (test SEE COMMENT Bacteriu brandon screen code = 0205999) negative. [facility] [id number] 23:39:00 Test Item Value Reference Range Interpretation Comments Urine culture (test SEE COMMENT Bacteriu brandon screen code = 0943805) negative. [facility] [id number] 23:39:00 Test Item Value Reference Range Interpretation Comments Urine culture (test SEE COMMENT Bacteriu brandon screen code = 8867291) negative. [facility] [id number] 23:39:00 Test Item Value Reference Range Interpretation Comments Urine culture (test SEE COMMENT Bacteriu brandon screen code = 3119198) negative. [facility] [id number] 23:39:00 Test Item Value Reference Range Interpretation Comments Urine culture (test SEE COMMENT Bacteriu brandon screen code = 3004929) negative. [facility] [id number] 23:39:00 Test Item Value Reference Range Interpretation Comments Urine culture (test SEE COMMENT Bacteriu brandon screen code = 6956039) negative. [facility]2022-11-10 23:39:00 Test Item Value Reference Range Interpretation Comments Urine culture (test SEE COMMENT Bacteriu brandon screen code = 3822841) negative. [facility] [id number] 23:39:00 Test Item Value Reference Range Interpretation Comments Urine culture (test SEE COMMENT Bacteriu brandon screen code = 6903858) negative. [facility] [id number] 23:39:00 Test Item Value Reference Range Interpretation Comments Urine culture (test SEE COMMENT Bacteriu brandon screen code = 5452034) [facility]. [facility] [id number] 22:17:00 Test Item Value Reference Range Interpretation Comments Hepatitis B surface NON-REACTIVE NON-REACTIVE Ag (test code = 5196-1) RAC (test code = RAC) Performing Organization Information: Site ID: RGA Name: [facility] Address: [address] [place] [address] Director: Rajinder Grant [facility] CenterRP with reflex to [id number] 22:17:00 Test Item Value Reference Range Interpretation Comments RPR (test code = NON-REACTIVE NON-REACTIVE 78426-1) RAC (test code = Performing Organization RAC) Information: Site ID: RGA Name: [facility] Lab Address: [address] [place] [address] Director: Rajinder Grant [facility] C virus (HCV), quantitative [id number] 22:17:00 Test Item Value Reference Interpretation Comments Range HCV RNA, <15 NOT DETECTED NOT DETECTED quantitative PCR IU/mL (test code = 39865-7) HCV viral log <1.18 NOT DETECTED NOT DETECTED This bhupendra t was (test code = Log IU/mL performed using 06079-0) Real-Time Polym erase ChainReaction. Reportable Rang e: 15 IU/mL to 100,00 0,000 IU/mL(1.18 Log IU/mL to 8.00 Log IU/ mL). The analytical performance characteristics of thisassay have been determined by [employer]. Th e modifications h ave not been cleare d or approved bythe FDA. This assay has been validated pursu ant to the CLIA regulations and is used for clinic al purposes. For m ore information on this test, go to:http://educa tion. 66. com /faq/DGO02j2( is link is being provided for informational/e ducat ional purposes only.) RAC (test code = Performing RAC) Organization Information: Site ID: IG Name: [facility] Address: [address] [place] [address] Director: Dr. Rajinder Grant [facility] C [id number] 22:17:00 Test Item Value Reference Interpretation Comments Range Hepatitis C Ab (test REACTIVE NON-REACTIVE A code = 44481-0) Signal/cutoff (test >11.00 See_Comment H Based o n this code = 25941-2) result, the sample will be testedf or [...] RAC) Organization Information: Site ID: RGA Name: [facility] Address: [address] [place] [address] Director: Rajinder Grant Lab Interpretation Abnormal (test code = 18469-1) [facility], [id number] 22:17:00 Test Item Value Reference Interpretation Comments Range HSV 1 IgM NEGATIVE (test code = 94332-3) HSV 2 IgM NEGATIVE REFERENCE RANG E: NEGATIVE HSV (test IgM is detectab le in serum code = from >90% of [facility] [address]-6) primary HSV inf ection. However, HSV Ig [...] performancechar acteristics have been deter mined by [employer].It has not been cleared or appr luis by FDA. This assay hasb een validated pursuant to the CLIA regulations and isused for clinical purpos es. RAC (test Performing code = Organization RAC) Information: Site ID: EZ Name: [employer], Address: [address] [place] [address] Director: Crista Camacho MD,PhD,BARI [facility]HIV 1/2 antigen/antibody, fourth generation, with reflexes 2022-02-11 22:17:00 Test Item Value Reference Range Interpretation Comments HIV NON-REACTIVE NON-REACTIVE HIV-1 antigen a nd antigen/ant HIV-1/HIV-2 ant ibodies ibody 4th were notdetecte d. There gen (test is no laborator y evidence code = of HIVinfection . PLEASE 69395-6) NOTE: This info rmation has been disclo [...] ad ditional information ple ase refer tohttp://educat ion.CardioGenics/ faq/BTO814 (This link is b eing provided for informational/e ducational purposes only.) The performance of this assay has not been clinicallyvalid ated in patients less t lagunas 2 years old. RAC (test Performing code = RAC) Organization Information: Site ID: RGA Name: [facility] Address: [address] [place] [address] Director: Rajinder Grant [facility] CenterHSV 1 and 2 specific Ab [id number] 22:17:00 Test Item Value Reference Interpretation Comments [...] ease refer to http://educatio n.Ques tDiagnostics.co m/faq/ KUJ279 (This li nk is being provided for informational/e ducati onal purposes o nly.) RAC (test code = Performing RAC) Organization Information: Site ID: IG Name: [facility] Address: [address] [place] [address] Director: Dr. Rajinder Grant Lab Interpretation Abnormal (test code = 88250-0) [facility] B surface [id number] 22:17:00 Test Item Value Reference Range Interpretation Comments Hepatitis B surface NON-REACTIVE NON-REACTIVE Ag (test code = 5196-1) RAC (test code = RAC) Performing Organization Information: Site ID: RGRd Name: [facility] Address: [address] [place] [address] Director: Rajinder Grant [facility] CenterRPR with reflex to [id number] 22:17:00 Test Item Value Reference Range Interpretation Comments RPR (test code = NON-REACTIVE NON-REACTIVE 03653-7) RAC (test code = Performing Organization RAC) Information: Site ID: RGA Name: [facility] Address: [address] [place] [address] Director: Rajinder Grant [facility] C virus (HCV), quantitative [id number] 22:17:00 Test Item Value Reference Interpretation Comments Range HCV RNA, <15 NOT DETECTED NOT DETECTED quantitative PCR IU/mL (test code = 93149-2) HCV viral log <1.18 NOT DETECTED NOT DETECTED This bhupendra t was (test code = Log IU/mL performed using 84395-8) Real-Time Polym erase ChainReaction. Reportable Rang e: 15 IU/mL to 100,00 0,000 IU/mL(1.18 Log IU/mL to 8.00 Log IU/ mL). The analytical performance characteristics of thisassay have been determined by [employer]. Th e modifications h ave not been cleare d or approved bythe FDA. This assay has been validated pursu ant to the CLIA regulations and is used for clinic al purposes. For m ore information on this test, go to:http://educa tion. 66. com /faq/YEO20p7(Th is link is being provided for informational/e ducat ional purposes only.) RAC (test code = Performing RAC) Organization Information: Site ID: IG Name: [facility] Address: [address] [place] [address] Director: Dr. Rajinder Grant [facility] [id number] 22:17:00 Test Item Value Reference Interpretation Comments Range Hepatitis C Ab (test REACTIVE NON-REACTIVE A code = 78408-5) Signal/cutoff (test >11.00 See_Comment H Based o n this code = 22641-7) result, the sample will be testedf or [...] RAC) Organization Information: Site ID: RGA Name: [facility] Address: [address] [place] [address] Director: Rajinder Grant Lab Interpretation Abnormal (test code = 06452-2) [facility] type 1/2 combined Ab, [id number] 22:17:00 Test Item Value Reference Interpretation Comments Range HSV 1 IgM NEGATIVE (test code = 96758-8) HSV 2 IgM NEGATIVE REFERENCE RANG E: NEGATIVE HSV (test IgM is detectab le in serum code = from >90% of [facility] [address]-9) primary HSV inf ection. However, HSV Ig [...] performancechar acteristics have been deter mined by [employer].It has not been cleared or appr luis by FDA. This assay hasb een validated pursuant to the CLIA regulations and isused for clinical purpos es. RAC (test Performing code = Organization RAC) Information: Site ID: EZ Name: [employer], Address: [address] [place] [address] Director: Crista Camacho MD,PhD,BARI [facility]/2 antigen/antibody, fourth generation, with reflexes 2022-02-11 22:17:00 Test Item Value Reference Range Interpretation Comments HIV NON-REACTIVE NON-REACTIVE HIV-1 antigen a nd antigen/ant HIV-1/HIV-2 ant ibodies ibody 4th were notdetecte d. There gen (test is no laborator y evidence code = of HIVinfection . PLEASE 86925-7) NOTE: This info rmation has been disclo [...] ad ditional information ple ase refer tohttp://educat ion.CardioGenics/ faq/ATJ333 (This link is b eing provided for informational/e ducational purposes only.) The performance of this assay has not been clinicallyvalid ated in patients less t lagunas 2 years old. RAC (test Performing code = RAC) Organization Information: Site ID: RGA Name: [facility] Address: [address] [place] [address] Director: Rajinder Grant [facility] CenterHSV 1 and 2 specific Ab [id number] 22:17:00 Test Item Value Reference Interpretation Comments [...] ease refer to http://educatio n.Ques tDiagnostics.co m/faq/ BJZ116 (This li nk is being provided for informational/e ducati onal purposes o nly.) RAC (test code = Performing RAC) Organization Information: Site ID: IG Name: [facility] Address: [address] [place] [address] Director: Dr. Rajinder Grant Lab Interpretation Abnormal (test code = 94752-1) [facility] [id number] 22:17:00 Test Item Value Reference Range Interpretation Comments Hepatitis B surface NON-REACTIVE NON-REACTIVE Ag (test code = 5196-1) RAC (test code = RAC) Performing Organization Information: Site ID: KATERINA Name: [facility] Address: [address] [place] [address] Director: Rajinder Grant [facility] CenterRPR with reflex to [id number] 22:17:00 Test Item Value Reference Range Interpretation Comments RPR (test code = NON-REACTIVE NON-REACTIVE 37215-3) RAC (test code = Performing Organization RAC) Information: Site ID: RGA Name: [facility] Address: [address] [place] [address] Director: Rajinder Grant [facility] C virus (HCV), quantitative [id number] 22:17:00 Test Item Value Reference Interpretation Comments Range HCV RNA, <15 NOT DETECTED NOT DETECTED quantitative PCR IU/mL (test code = 51772-7) HCV viral log <1.18 NOT DETECTED NOT DETECTED This bhupendra t was (test code = Log IU/mL performed using 26479-6) Real-Time Polym erase ChainReaction. Reportable Rang e: 15 IU/mL to 100,00 0,000 IU/mL(1.18 Log IU/mL to 8.00 Log IU/ mL). The analytical performance characteristics of thisassay have been determined by [employer]. Th e modifications h ave not been cleare d or approved bythe FDA. This assay has been validated pursu ant to the CLIA regulations and is used for clinic al purposes. For m ore information on this test, go to:http://educa tion. 66. com /faq/MTP74t3(Th is link is being provided for informational/e ducat ional purposes only.) RAC (test code = Performing RAC) Organization Information: Site ID: IG Name: [facility] Address: [address] [place] [address] Director: Dr. Rajinder Grant [facility] [id number] 22:17:00 Test Item Value Reference Interpretation Comments Range Hepatitis C Ab (test REACTIVE NON-REACTIVE A code = 78971-7) Signal/cutoff (test >11.00 See_Comment H Based o n this code = 57762-9) result, the sample will be testedf or [...] RAC) Organization Information: Site ID: RGA Name: [facility] Address: [address] [place] [address] Director: Rajinder Grant Lab Interpretation Abnormal (test code = 94374-0) [facility]2 [facility] Ab, [id number] 22:17:00 Test Item Value Reference Interpretation Comments Range HSV 1 IgM NEGATIVE (test code = 68607-2) HSV 2 IgM NEGATIVE REFERENCE RANG E: NEGATIVE HSV (test IgM is detectab le in serum code = from >90% of [place] tracey 61097-1) primary HSV inf ection. However, HSV Ig [...] performancechar acteristics have been deter mined by [employer].It has not been cleared or appr luis by FDA. This assay hasb een validated pursuant to the CLIA regulations and isused for clinical purpos es. RAC (test Performing code = Organization RAC) Information: Site ID: EZ Name: [employer], Address: [address] [place] [address] Director: Crista Camacho MD,PhD,BARI [facility] CenterHIV 1/2 antigen/antibody, fourth generation, with reflexes 2022-02-11 22:17:00 Test Item Value Reference Range Interpretation Comments HIV NON-REACTIVE NON-REACTIVE HIV-1 antigen a nd antigen/ant HIV-1/HIV-2 ant ibodies ibody 4th were notdetecte d. There gen (test is no laborator y evidence code = of HIVinfection . PLEASE 11139-7) NOTE: This info rmation has been disclo [...] ad ditional information ple ase refer tohttp://educat ion.TLM Com.Qello/ faq/XJK287 (This link is b eing provided for informational/e ducational purposes only.) The performance of this assay has not been clinicallyvalid ated in patients less t lagunas 2 years old. RAC (test Performing code = RAC) Organization Information: Site ID: RGA Name: [facility] Address: [address] [place] [address] Director: Rajinder Grant [facility] CenterHSV 1 and 2 specific Ab [id number] 22:17:00 Test Item Value Reference Interpretation Comments [...] ease refer to http://educatio nReza tDiagnostics.co m/faq/ HFN966 (This li nk is being provided for informational/e ducati onal purposes o nly.) RAC (test code = Performing RAC) Organization Information: Site ID: IG Name: [facility] Address: [address] [place] [address] Director: Dr. Rajinder Grant Lab Interpretation Abnormal (test code = 19472-6) [facility] [id number] 22:17:00 Test Item Value Reference Range Interpretation Comments Hepatitis B surface NON-REACTIVE NON-REACTIVE Ag (test code = 5196-1) RAC (test code = RAC) Performing Organization Information: Site ID: RGA Name: [facility] Address: [address] [place] [address] Director: Rajinder Garnt [facility] CenterRPR with reflex to [id number] 22:17:00 Test Item Value Reference Range Interpretation Comments RPR (test code = NON-REACTIVE NON-REACTIVE 40690-7) RAC (test code = Performing Organization RAC) Information: Site ID: RGA Name: [facility] [facility] Address: [address] [place] [address] Director: Rajinder Grant [facility] C virus (HCV), quantitative [id number] 22:17:00 Test Item Value Reference Interpretation Comments Range HCV RNA, <15 NOT DETECTED NOT DETECTED quantitative PCR IU/mL (test code = 36238-2) HCV viral log <1.18 NOT DETECTED NOT DETECTED This bhupendra t was (test code = Log IU/mL performed using 22610-1) Real-Time Polym erase ChainReaction. Reportable Rang e: 15 IU/mL to 100,00 0,000 IU/mL(1.18 Log IU/mL to 8.00 Log IU/ mL). The analytical performance characteristics of thisassay have been determined by [employer]. Th e modifications h ave not been cleare d or approved bythe FDA. This assay has been validated pursu ant to the CLIA regulations and is used for clinic al purposes. For m ore information on this test, go to:http://educa tion. 66. com /faq/BIR67o4( is link is being provided for informational/e ducat ional purposes only.) RAC (test code = Performing RAC) Organization Information: Site ID: IG [facility]: [facility] Address: [address] [place] [address] Director: Dr. Rajinder Grant [facility] [id number] 22:17:00 Test Item Value Reference Interpretation Comments Range Hepatitis C Ab (test REACTIVE NON-REACTIVE A code = 22149-4) Signal/cutoff (test >11.00 See_Comment H Based o n this code = 44354-2) result, the sample will be testedf or [...] RAC) Organization Information: Site ID: RGA Name: [facility] Address: [address] [place] [address] Director: Rajinder Grant Lab Interpretation Abnormal (test code = 82390-5) [facility]/2 combined Ab, [id number] 22:17:00 Test Item Value Reference Interpretation Comments Range HSV 1 IgM NEGATIVE (test code = 67848-9) HSV 2 IgM NEGATIVE REFERENCE RANG E: NEGATIVE HSV (test IgM is detectab le in serum code = from >90% of [place] tracey 94937-5) primary HSV inf ection. However, HSV Ig [...] performancechar acteristics have been deter mined by [employer].It has not been cleared or appr luis by FDA. This assay hasb een validated pursuant to the CLIA regulations and isused for clinical purpos es. RAC (test Performing code = Organization RAC) Information: Site ID: EZ Name: [employer], Address: [address] [place] [address] Director: Crista Camacho MD,PhD,BARI [facility] CenterHIV 1/2 antigen/antibody, fourth generation, with reflexes 2022-02-11 22:17:00 Test Item Value Reference Range Interpretation Comments HIV NON-REACTIVE NON-REACTIVE HIV-1 antigen a nd antigen/ant HIV-1/HIV-2 ant ibodies ibody 4th were notdetecte d. There gen (test is no laborator y evidence code = of HIVinfection . PLEASE 92342-8) NOTE: This info rmation has been disclo [...] ad ditional information ple ase refer tohttp://educat ion.TLM Com.Qello/ faq/ZBH696 (This link is b eing provided for informational/e ducational purposes only.) The performance of this assay has not been clinicallyvalid ated in patients less t lagunas 2 years old. RAC (test Performing code = RAC) Organization Information: Site ID: BEBA Name: [facility] Address: [address] [place] [address] Director: Rajinder Grant [facility] CenterHSV 1 and 2 specific Ab [id number] 22:17:00 Test Item Value Reference Interpretation Comments [...] additional information, pl ease refer to http://educatio n.[employer].Qello /faq/FA Q118 (This link is being provided for informational/e ducatio nal purposes on ly.) RAC (test code = Performing RAC) Organization Information: Site ID: IG Name: [facility] Address: [address] [place] [address] Director: Dr. Rajinder Grant Lab Interpretation Abnormal (test code = 39864-0) [facility] CenterHepatitis B surface [id number] 22:17:00 Test Item Value Reference Range Interpretation Comments Hepatitis B surface NON-REACTIVE NON-REACTIVE Ag (test code = 5196-1) RAC (test code = RAC) Performing Organization Information: Site ID: RGA Name: [facility] Address: [address] [place] [address] Director: Rajinder Grant [facility]RP with reflex to [id number] 22:17:00 Test Item Value Reference Range Interpretation Comments RPR (test code = NON-REACTIVE NON-REACTIVE 81798-0) RAC (test code = Performing Organization RAC) Information: Site ID: RGA Name: [facility] Address: [address] [place] [address] Director: Rajinder Grant [facility] C virus (HCV), quantitative [id number] 22:17:00 Test Item Value Reference Interpretation Comments Range HCV RNA, <15 NOT DETECTED NOT DETECTED quantitative PCR IU/mL (test code = 31462-6) HCV viral log <1.18 NOT DETECTED NOT DETECTED This bhupendra t was (test code = Log IU/mL performed using 04746-6) Real-Time Polym erase ChainReaction. Reportable Rang e: 15 IU/mL to 100,00 0,000 IU/mL(1.18 Log IU/mL to 8.00 Log IU/ mL). The analytical performance characteristics of thisassay have been determined by [employer]. Th e modifications h ave not been cleare d or approved bythe FDA. This assay has been validated pursu ant to the CLIA regulations and is used for clinic al purposes. For m ore information on this test, go to:http://educa tion. 66. com /faq/KJF78g2(Th is link is being provided for informational/e ducat ional purposes only.) RAC (test code = Performing RAC) Organization Information: Site ID: IG [facility]: [facility] Address: [address] [place] [address] Director: Dr. Rajinder Grant [facility] C [id number] 22:17:00 Test Item Value Reference Interpretation Comments Range Hepatitis C Ab (test REACTIVE NON-REACTIVE A code = 89751-0) Signal/cutoff (test >11.00 See_Comment H Based o n this code = 01425-2) result, the sample will be testedf or [...] RAC) Organization Information: Site ID: RGA Name: [facility] [facility] Address: [address] [place] [address] Director: Rajinder Grant Lab Interpretation Abnormal (test code = 95547-4) [facility] CenterHSV [facility] 1/2 combined Ab, [id number] 22:17:00 Test Item Value Reference Interpretation Comments Range HSV 1 IgM NEGATIVE (test code = 41328-8) HSV 2 IgM NEGATIVE REFERENCE RANG E: NEGATIVE HSV (test IgM is detectab le in serum code = from >90% of [facility] 60610-7) primary HSV inf ection. However, HSV Ig [...] performancechar acteristics have been deter mined by [employer].It has not been cleared or appr luis by FDA. This assay hasb een validated pursuant to the CLIA regulations and isused for clinical purpos es. RAC (test Performing code = Organization RAC) Information: Site ID: EZ Name: [employer], Address: [address] [place] [address] Director: Crista Camacho MD,PhD,ABRI [facility] CenterHIV 1/2 antigen/antibody, fourth generation, with reflexes 2022-02-11 22:17:00 Test Item Value Reference Range Interpretation Comments HIV NON-REACTIVE NON-REACTIVE HIV-1 antigen a nd antigen/ant HIV-1/HIV-2 ant ibodies ibody 4th were notdetecte d. There gen (test is no laborator y evidence code = of HIVinfection . PLEASE 29035-3) NOTE: This info rmation has been disclo [...] ad ditional information ple ase refer tohttp://educat ion.CardioGenics/ faq/IWM157 (This link is b eing provided for informational/e ducational purposes only.) The performance of this assay has not been clinicallyvalid ated in patients less t lagunas 2 years old. RAC (test Performing code = RAC) Organization Information: Site ID: RGA Name: [facility] Address: [address] [place] [address] Director: Rajinder Grant [facility] CenterHSV 1 and 2 specific Ab [id number] 22:17:00 Test Item Value Reference Interpretation Comments [...] ease refer to http://educatio n.Ques tDiagnostics.co m/faq/ LRU677 (This li nk is being provided for informational/e ducati onal purposes o nly.) RAC (test code = Performing RAC) Organization Information: Site ID: IG Name: [facility] Lab Address: [address] [place] [address] Director: Dr. Rajinder Grant Lab Interpretation Abnormal (test code = 72130-1) [facility] B surface [id number] 22:17:00 Test Item Value Reference Range Interpretation Comments Hepatitis B surface NON-REACTIVE NON-REACTIVE Ag (test code = 5196-1) RAC (test code = RAC) Performing Organization Information: Site ID: RGA Name: [facility] Address: [address] [place] [address] Director: Rajinder Grant [facility] CenterRP with reflex to [id number] 22:17:00 Test Item Value Reference Range Interpretation Comments RPR (test code = NON-REACTIVE NON-REACTIVE 75383-1) RAC (test code = Performing Organization RAC) Information: Site ID: RGA Name: [facility] Address: [address] [place] [address] Director: Rajinder Grant [facility] C virus (HCV), quantitative [id number] 22:17:00 Test Item Value Reference Interpretation Comments Range HCV RNA, <15 NOT DETECTED NOT DETECTED quantitative PCR IU/mL (test code = 18710-7) HCV viral log <1.18 NOT DETECTED NOT DETECTED This bhupendra t was (test code = Log IU/mL performed using 59706-5) Real-Time Polym erase ChainReaction. Reportable Rang e: 15 IU/mL to 100,00 0,000 IU/mL(1.18 Log IU/mL to 8.00 Log IU/ mL). The analytical performance characteristics of thisassay have been determined by [employer]. Th e modifications h ave not been cleare d or approved bythe FDA. This assay has been validated pursu ant to the CLIA regulations and is used for clinic al purposes. For m ore information on this test, go to:http://educa tion. 66. com /faq/SDL71w5(Th is link is being provided for informational/e ducat ional purposes only.) RAC (test code = Performing RAC) Organization Information: Site ID: IG Name: [facility] Address: [address] [place] [address] Director: Dr. Rajinder Grant [facility] CenterHepatitis C [id number] 22:17:00 Test Item Value Reference Interpretation Comments Range Hepatitis C Ab (test REACTIVE NON-REACTIVE A code = 94698-7) Signal/cutoff (test >11.00 See_Comment H Based o n this code = 55173-6) result, the sample will be testedf or [...] RAC) Organization Information: Site ID: RGA Name: [facility] Address: [address] [place] [address] Director: Rajinder Grant Lab Interpretation Abnormal (test code = 76517-7) [facility]2 [facility], [id number] 22:17:00 Test Item Value Reference Interpretation Comments Range HSV 1 IgM NEGATIVE (test code = 23701-2) HSV 2 IgM NEGATIVE REFERENCE RANG E: NEGATIVE HSV (test IgM is detectab le in serum code = from >90% of [facility] 33189-9) primary HSV inf ection. However, HSV Ig [...] performancechar acteristics have been deter mined by [employer].It has not been cleared or appr luis by FDA. This assay hasb een validated pursuant to the CLIA regulations and isused for clinical purpos es. RAC (test Performing code = Organization RAC) Information: Site ID: EZ Name: [employer], Address: [address] [place] [address] Director: Crista Camacho MD,PhD,BARI [facility] CenterHIV 1/2 antigen/antibody, fourth generation, with reflexes 2022-02-11 22:17:00 Test Item Value Reference Range Interpretation Comments HIV NON-REACTIVE NON-REACTIVE HIV-1 antigen a nd antigen/ant HIV-1/HIV-2 ant ibodies ibody 4th were notdetecte d. There gen (test is no laborator y evidence code = of HIVinfection . PLEASE 02411-1) NOTE: This info rmation has been disclo [...] ad ditional information ple ase refer tohttp://educat ion.TLM Com.Qello/ faq/MCN057 (This link is b eing provided for informational/e ducational purposes only.) The performance of this assay has not been clinicallyvalid ated in patients less t lagunas 2 years old. RAC (test Performing code = RAC) Organization Information: Site ID: RGA Name: [facility] Address: [address] [place] [address] Director: Rajinder Grant [facility] CenterHSV 1 and 2 specific Ab [id number] 22:17:00 Test Item Value Reference Interpretation Comments [...] ease refer to http://educatio n.Ques tDiagnostics.co m/faq/ NWI410 (This li nk is being provided for informational/e ducati onal purposes o nly.) RAC (test code = Performing RAC) Organization Information: Site ID: IG Name: [facility] Address: [address] [place] [address] Director: Dr. Rajinder Grant Lab Interpretation Abnormal (test code = 75815-1) [facility] B surface [id number] 22:17:00 Test Item Value Reference Range Interpretation Comments Hepatitis B surface NON-REACTIVE NON-REACTIVE Ag (test code = 5196-1) RAC (test code = RAC) Performing Organization Information: Site ID: RGA Name: [facility] Address: [address] [place] [address] Director: Rajinder [facility]RPR with reflex to [id number] 22:17:00 Test Item Value Reference Range Interpretation Comments RPR (test code = NON-REACTIVE NON-REACTIVE 55766-2) RAC (test code = Performing Organization RAC) Information: Site ID: RGA Name: [facility] Address: [address] [place] [address] Director: Rajinder Grant [facility] C virus (HCV), quantitative [id number] 22:17:00 Test Item Value Reference Interpretation Comments Range HCV RNA, <15 NOT DETECTED NOT DETECTED quantitative PCR IU/mL (test code = 60076-9) HCV viral log <1.18 NOT DETECTED NOT DETECTED This bhupendra t was (test code = Log IU/mL performed using 93983-7) Real-Time Polym erase ChainReaction. Reportable Rang e: 15 IU/mL to 100,00 0,000 IU/mL(1.18 Log IU/mL to 8.00 Log IU/ mL). The analytical performance characteristics of thisassay have been determined by [employer]. Th e modifications h ave not been cleare d or approved bythe FDA. This assay has been validated pursu ant to the CLIA regulations and is used for clinic al purposes. For m ore information on this test, go to:http://educa tion. 66. com /faq/FKV07k6(Th is link is being provided for informational/e ducat ional purposes only.) RAC (test code = Performing RAC) Organization Information: Site ID: IG Name: [facility] Address: [address] [place] [address] Director: Dr. Rajinder Grant [facility]Hep[facility] C [id number] 22:17:00 Test Item Value Reference Interpretation Comments Range Hepatitis C Ab (test REACTIVE NON-REACTIVE A code = 44941-4) Signal/cutoff (test >11.00 <=1.00 H Based o n this code = 06903-9) result, the sample will be testedf or HCV RNA by a Nucleic Acid Amplification T est (NAAT)to determ ine if the patient has a current activeinfection . RAC (test code = Performing RAC) Organization Information: Site ID: RGA Name: [facility] Address: [address] [place] [address] Director: Rajinder Grant Lab Interpretation Abnormal (test code = 93880-4) [facility]2 combined Ab, [id number] 22:17:00 Test Item Value Reference Interpretation Comments Range HSV 1 IgM NEGATIVE (test code = 79655-7) HSV 2 IgM NEGATIVE REFERENCE RANG E: NEGATIVE HSV (test IgM is detectab le in serum code = from >90% of [place] tracey 60657-6) primary HSV inf ection. However, HSV Ig [...] performancechar acteristics have been deter mined by [employer].It has not been cleared or appr luis by FDA. This assay hasb een validated pursuant to the CLIA regulations and isused for clinical purpos es. RAC (test Performing code = Organization RAC) Information: Site ID: EZ Name: [employer], Address: [address] [place] [address] Director: Crista Camacho MD,PhD,BARI [facility] 1/2 antigen/antibody, fourth generation, with reflexes 2022-02-11 22:17:00 Test Item Value Reference Range Interpretation Comments HIV NON-REACTIVE NON-REACTIVE HIV-1 antigen a nd antigen/ant HIV-1/HIV-2 ant ibodies ibody 4th were notdetecte d. There gen (test is no laborator y evidence code = of HIVinfection . PLEASE 85565-6) NOTE: This info rmation has been disclo [...] ad ditional information ple ase refer tohttp://educat ion.CardioGenics/ faq/FPR645 (This link is b eing provided for informational/e ducational purposes only.) The performance of this assay has not been clinicallyvalid ated in patients less t lagunas 2 years old. RAC (test Performing code = RAC) Organization Information: Site ID: RGA Name: [facility] Address: [address] [place] [address] Director: Rajinder Grant [facility] CenterHSV 1 and 2 specific Ab [id number] 22:17:00 Test Item Value Reference Interpretation Comments Range HSV 1 IgG (test <0.90 index code = 5206-8) HSV 2 IgG (test 17.90 index H Index code = 5209-2) Interpretatio [...] ease refer to http://educatio n.Ques tDiagnostics.co m/faq/ GEJ601 (This li nk is being provided for informational/e ducati onal purposes o nly.) RAC (test code = Performing RAC) Organization Information: Site ID: IG Name: [facility] Address: [address] [place] [address] Director: Dr. Rajinder Grant Lab Interpretation Abnormal (test code = 40947-0) [facility] CenterHepatitis B surface [id number] 22:17:00 Test Item Value Reference Range Interpretation Comments Hepatitis B surface NON-REACTIVE NON-REACTIVE Ag (test code = 5196-1) RAC (test code = RAC) Performing Organization Information: Site ID: RGA Name: [facility] Address: [address] [place] [address] Director: Rajinder Grant [facility] CenterRPR with reflex to [id number] 22:17:00 Test Item Value Reference Range Interpretation Comments RPR (test code = NON-REACTIVE NON-REACTIVE 25406-1) RAC (test code = Performing Organization RAC) Information: Site ID: RGA Name: [facility] Address: [address] [place] [address] Director: Rajinder Parker [facility] C virus (HCV), quantitative [id number] 22:17:00 Test Item Value Reference Interpretation Comments Range HCV RNA, <15 NOT DETECTED NOT DETECTED quantitative PCR IU/mL (test code = 21021-0) HCV viral log <1.18 NOT DETECTED NOT DETECTED This bhupendra t was (test code = Log IU/mL performed using 52186-0) Real-Time Polym erase ChainReaction. Reportable Rang e: 15 IU/mL to 100,00 0,000 IU/mL(1.18 Log IU/mL to 8.00 Log IU/ mL). The analytical performance characteristics of thisassay have been determined by [employer]. Th e modifications h ave not been cleare d or approved bythe FDA. This assay has been validated pursu ant to the CLIA regulations and is used for clinic al purposes. For m ore information on this test, go to:http://educa tion. 66. com /faq/TRD33w9(Th is link is being provided for informational/e ducat ional purposes only.) RAC (test code = Performing RAC) Organization Information: Site ID: IG Name: [facility] Address: [address] [place] [address] Director: Dr. Rajinder Grant [facility] [id number] 22:17:00 Test Item Value Reference Interpretation Comments Range Hepatitis C Ab (test REACTIVE NON-REACTIVE A code = 02173-5) Signal/cutoff (test >11.00 <=1.00 H Based o n this code = 09846-5) result, the sample will be testedf or HCV RNA by a Nucleic Acid Amplification T est (NAAT)to determ ine if the patient has a current activeinfection . RAC (test code = Performing RAC) Organization Information: Site ID: RGA Name: [facility] Address: [address] [place] [address] Director: Rajinder Grant Lab Interpretation Abnormal (test code = 54638-9) [facility]HS[facility]/2 combined Ab, [id number] 22:17:00 Test Item Value Reference Interpretation Comments Range HSV 1 IgM NEGATIVE (test code = 85608-8) HSV 2 IgM NEGATIVE REFERENCE RANG E: NEGATIVE HSV (test IgM is detectab le in serum code = from >90% of [place] tracey 92245-2) primary HSV inf ection. However, HSV Ig [...] performancechar acteristics have been deter mined by [employer].It has not been cleared or appr luis by FDA. This assay hasb een validated pursuant to the CLIA regulations and isused for clinical purpos es. RAC (test Performing code = Organization RAC) Information: Site ID: EZ Name: [employer], Address: [address] [place] [address] Director: Crista Camacho MD,PhD,BARI [facility]/antibody, fourth generation, with reflexes 2022-02-11 22:17:00 Test Item Value Reference Range Interpretation Comments HIV NON-REACTIVE NON-REACTIVE HIV-1 antigen a nd antigen/ant HIV-1/HIV-2 ant ibodies ibody 4th were notdetecte d. There gen (test is no laborator y evidence code = of HIVinfection . PLEASE 17405-3) NOTE: This info rmation has been disclo [...] ad ditional information ple ase refer tohttp://educat ion.CardioGenics/ faq/YPG632 (This link is b eing provided for informational/e ducational purposes only.) The performance of this assay has not been clinicallyvalid ated in patients less t lagunas 2 years old. RAC (test Performing code = RAC) Organization Information: Site ID: RGA Name: [facility] Address: [address] [place] [address] Director: Rajinder Grant [facility] CenterHSV 1 and 2 specific Ab [id number] 22:17:00 Test Item Value Reference Interpretation Comments [...] ease refer to http://educatio n.Tri tDiagnostics.co m/faq/ EUK645 (This li nk is being provided for informational/e ducati onal purposes o nly.) RAC (test code = Performing RAC) Organization Information: Site ID: IG Name: [facility] Lab Address: [address] [place] [address] Director: Dr. Rajinder Grant Lab Interpretation Abnormal (test code = 69117-0) [facility] B surface [id number] 22:17:00 Test Item Value Reference Range Interpretation Comments Hepatitis B surface NON-REACTIVE NON-REACTIVE Ag (test code = 5196-1) RAC (test code = RAC) Performing Organization Information: Site ID: RGA Name: [facility] Address: [address] [place] [address] Director: Rajinder Grant [facility]RP with reflex to [id number] 22:17:00 Test Item Value Reference Range Interpretation Comments RPR (test code = NON-REACTIVE NON-REACTIVE 71080-8) RAC (test code = Performing Organization RAC) Information: Site ID: RGA Name: [facility] Address: [address] [place] [address] Director: Rajinder Grant [facility] C virus (HCV), quantitative [id number] 22:17:00 Test Item Value Reference Interpretation Comments Range HCV RNA, <15 NOT DETECTED NOT DETECTED quantitative PCR IU/mL (test code = 52966-9) HCV viral log <1.18 NOT DETECTED NOT DETECTED This bhupendra t was (test code = Log IU/mL performed using 02163-2) Real-Time Polym erase ChainReaction. Reportable Rang e: 15 IU/mL to 100,00 0,000 IU/mL(1.18 Log IU/mL to 8.00 Log IU/ mL). The analytical performance characteristics of thisassay have been determined by [employer]. Th e modifications h ave not been cleare d or approved bythe FDA. This assay has been validated pursu ant to the CLIA regulations and is used for clinic al purposes. For m ore information on this test, go to:http://educa tion. SyndicatePlus.Qello /faq/TMK64w8(Th is link is being provided for informational/e ducat ional purposes only.) RAC (test code = Performing RAC) Organization Information: Site ID: IG [facility]: [facility] Address: [address] [place] [address] Director: Dr. Rajinder Grant [facility] C [id number] 22:17:00 Test Item Value Reference Interpretation Comments Range Hepatitis C Ab (test REACTIVE NON-REACTIVE A code = 52919-9) Signal/cutoff (test >11.00 <=1.00 H Based o n this code = 75538-0) result, the sample will be testedf or HCV RNA by a Nucleic Acid Amplification T est (NAAT)to determ ine if the patient has a current activeinfection . RAC (test code = Performing RAC) Organization Information: Site ID: RGA Name: [facility] Address: [address] [place] [address] Director: Rajinder Grant Lab Interpretation Abnormal (test code = 24238-1) [facility] 1/2 combined Ab, [id number] 22:17:00 Test Item Value Reference Interpretation Comments Range HSV 1 IgM NEGATIVE (test code = 14939-0) HSV 2 IgM NEGATIVE REFERENCE RANG E: NEGATIVE HSV (test IgM is detectab le in serum code = from >90% of [facility] [address]-5) primary HSV inf ection. However, HSV Ig [...] performancechar acteristics have been deter mined by [employer].It has not been cleared or appr luis by FDA. This assay hasb een validated pursuant to the CLIA regulations and isused for clinical purpos es. RAC (test Performing code = Organization RAC) Information: Site ID: EZ Name: [facility], Address: [address] [place] [address] Director: Crista Camacho MD,PhD,BARI [facility]2 antigen/antibody, fourth generation, with reflexes 2022-02-11 22:17:00 Test Item Value Reference Range Interpretation Comments HIV NON-REACTIVE NON-REACTIVE HIV-1 antigen a nd antigen/ant HIV-1/HIV-2 ant ibodies ibody 4th were notdetecte d. There gen (test is no laborator y evidence code = of HIVinfection . PLEASE 44206-4) NOTE: This info rmation has been disclo [...] ad ditional information ple ase refer tohttp://educat ion.CardioGenics/ faq/IDE943 (This link is b eing provided for informational/e ducational purposes only.) The performance of this assay has not been clinicallyvalid ated in patients less t lagunas 2 years old. RAC (test Performing code = RAC) Organization Information: Site ID: RGA Name: [facility] Address: [address] [place] [address] Director: Rajinder Grant [facility] CenterHSV 1 and 2 specific Ab [id number] 22:17:00 Test Item Value Reference Interpretation Comments [...] ease refer to http://educatio n.Ques tDiagnostics.co m/faq/ XTK529 (This li nk is being provided for informational/e ducati onal purposes o nly.) RAC (test code = Performing RAC) Organization Information: Site ID: IG Name: [facility] Address: [address] [place] [address] Director: Dr. Rajinder Grant Lab Interpretation Abnormal (test code = 94902-0) [facility] [id number] 15:02:28 Test Item Value Reference Range Interpretation Comments Case number (test code = [id number]) Surgical pathology See link below for report (test code = PDF Lab Report 2255) Result status (test code This is Final Report = [id number]) for [address] pathology [id number] 15:02:28 Test Item Value Reference Range Interpretation Comments Case number (test code = [id number]) Surgical pathology See link below for report (test code = PDF Lab Report 2255) Result status (test code This is Final Report = [id number]) [address] [id number] 15:02:28 Test Item Value Reference Range Interpretation Comments Case number (test code = [id number]) Surgical pathology See link below for report (test code = PDF Lab Report 2255) Result status (test code This is Final Report = [id number]) [address] [id number] 15:02:28 Test Item Value Reference Range Interpretation Comments Case number (test code = [id number]) Surgical pathology See link below for report (test code = PDF Lab Report 2255) Result status (test code This is Final Report = [id number]) [address] [id number] 15:02:28 Test Item Value Reference Range Interpretation Comments Case number (test code = [id number]) Surgical pathology See link below for report (test code = PDF Lab Report 2255) Result status (test code This is Final Report = [id number]) [address] [id number] 15:02:28 Test Item Value Reference Range Interpretation Comments Case number (test code = [id number]) Surgical pathology See link below for report (test code = PDF Lab Report 2255) Result status (test code This is Final Report = 5080638) for [id number] [facility] pathology [id number] 15:02:28 Test Item Value Reference Range Interpretation Comments Case number (test code = [id number]) Surgical pathology See link below for report (test code = PDF Lab Report 2255) Result status (test code This is Final Report = 9906442) for [id number] [facility] [id number] 15:02:28 Test Item Value Reference Range Interpretation Comments Case number (test code = [id number]) Surgical pathology See link below for report (test code = PDF Lab Report 2255) Result status (test code This is Final Report = 6481147) for [address] pathology [id number] 15:02:28 Test Item Value Reference Range Interpretation Comments Case number (test code = [id number]) Surgical pathology See link below for report (test code = PDF Lab Report 2255) Result status (test code This is Final Report = 7736832) for [id number] [facility] [address]COVID-[facility] qualitative [id number] 22:09:28 Test Item Value Reference Interpretation Comments Range Interpretation (test Negative results do not code = 6469488) preclude COVID-19 infection and should not be used asthe sole basis for treatment or other patient management decisions. Negativeresults must be combined with clinical observations, patient history, andepidemiological information. COVID-19 qualitative Not-Detected Not-Detected RT-PCR result (test code = 88539-4) COVID-19 qualitative See link below for PDF Case Number: RT-PCR (test code = Lab Report [id number] 7070) [facility] [id number] 22:09:28 Test Item Value Reference Interpretation Comments Range Interpretation (test Negative results do not code = 9316103) preclude COVID-19 infection and should not be used asthe sole basis for treatment or other patient management decisions. Negativeresults must be combined with clinical observations, patient history, andepidemiological information. COVID-19 qualitative Not-Detected Not-Detected RT-PCR result (test code = 15068-9) COVID-19 qualitative See link below for PDF Case Number: RT-PCR (test code = Lab Report [id number] 7070) [facility] [id number] 22:09:28 Test Item Value Reference Interpretation Comments Range Interpretation (test Negative results do not code = 8076485) preclude COVID-19 infection and should not be used asthe sole basis for treatment or other patient management decisions. Negativeresults must be combined with clinical observations, patient history, andepidemiological information. COVID-19 qualitative Not-Detected Not-Detected RT-PCR result (test code = 29514-2) COVID-19 qualitative See link below for PDF Case Number: RT-PCR (test code = Lab Report [id number] 7070) [facility] [id number] 22:09:28 Test Item Value Reference Interpretation Comments Range Interpretation (test Negative results do not code = 1497963) preclude COVID-19 infection and should not be used asthe sole basis for treatment or other patient management decisions. Negativeresults must be combined with clinical observations, patient history, andepidemiological information. COVID-19 qualitative Not-Detected Not-Detected RT-PCR result (test code = 47992-0) COVID-19 qualitative See link below for PDF Case Number: RT-PCR (test code = Lab Report [id number] 7070) [facility] [id number] 22:09:28 Test Item Value Reference Interpretation Comments Range Interpretation (test Negative results do not code = 0414051) preclude COVID-19 infection and should not be used asthe sole basis for treatment or other patient management decisions. Negativeresults must be combined with clinical observations, patient history, andepidemiological information. COVID-19 qualitative Not-Detected Not-Detected RT-PCR result (test code = 10424-2) COVID-19 qualitative See link below for PDF Case Number: RT-PCR (test code = Lab Report [id number] 7070) [facility] [id number] 22:09:28 Test Item Value Reference Interpretation Comments Range Interpretation (test Negative results do not code = 7208788) preclude COVID-19 infection and should not be used asthe sole basis for treatment or other patient management decisions. Negativeresults must be combined with clinical observations, patient history, andepidemiological information. COVID-19 qualitative Not-Detected Not-Detected RT-PCR result (test code = 17466-5) COVID-19 qualitative See link below for PDF Case Number: RT-PCR (test code = Lab Report [id number] 7070) [facility] [id number] 22:09:28 Test Item Value Reference Interpretation Comments Range Interpretation (test Negative results do not code = 5720842) preclude COVID-19 infection and should not be used asthe sole basis for treatment or other patient management decisions. Negativeresults must be combined with clinical observations, patient history, andepidemiological information. COVID-19 qualitative Not-Detected Not-Detected RT-PCR result (test code = 98812-9) COVID-19 qualitative See link below for PDF Case Number: RT-PCR (test code = Lab Report [id number] 7070) [facility] qualitative [id number] 22:09:28 Test Item Value Reference Interpretation Comments Range Interpretation (test Negative results do not code = 0414892) preclude COVID-19 infection and should not be used asthe sole basis for treatment or other patient management decisions. Negativeresults must be combined with clinical observations, patient history, andepidemiological information. COVID-19 qualitative Not-Detected Not-Detected RT-PCR result (test code = 48960-6) COVID-19 qualitative See link below for PDF Case Number: RT-PCR PDF (test Lab Report [id number] 1 code = 7070) [facility] [id number] 22:09:28 Test Item Value Reference Interpretation Comments Range Interpretation (test Negative results do not code = 8802214) preclude COVID-19 infection and should not be used asthe sole basis for treatment or other patient management decisions. Negativeresults must be combined with clinical observations, patient history, andepidemiological information. COVID-19 qualitative Not-Detected Not-Detected RT-PCR result (test code = 67148-9) COVID-19 qualitative See link below for PDF Case Number: RT-PCR PDF (test Lab Report [id number] 1 code = 7070) [facility] AvdrrvuaUXTM-NvB-1 (COVID-19) RNA [Presence] in Respiratory specimen by LATESHA with probe [id number] 17:09:28 Test Item Value Reference Range Interpretation Comments SARS-CoV-2 (COVID-19) RNA Not detected [Presence] in Respiratory specimen by LATESHA with probe detection (test code = 91560-1) Whether patient is employed in a Unknown healthcare setting (test code = 98628-6) Whether the patient has symptoms Unknown related to condition of interest (test code = 41212-3) Whether the patient was Unknown hospitalized for condition of interest (test code = 86460-8) Whether the patient was admitted Unknown to intensive care unit (ICU) for condition of interest (test code = 25894-6) Whether patient resides in a Unknown congregate care setting (test code = 89464-7) status (test code = Unknown 37680-5) Date and time of symptom onset Unknown (test code = 19295-9) [facility]ELLANDTHINPREP TIS AND HPV mRNA [id number] 20:30:00 Test Item Value Reference Interpretation Comments Range Clinical information None gi niurka (test code = 52490-6) Date of last NONE GIVEN menstrual period (test code = 8665-2) Prev. pap: (test code NONE G IVEN = 37451-6) Prev. bx: (test code NONE GI NIURKA = 80997-9) Source (test code = [place] 30988-5) Statement of adequacy Satisf actory for (test code = 23430-2) evalua tion.Endocervi cony/transformat ion zone componentpresen t.Age and/or menstrua l status not prov ided Interpretation/result Negati ve for : (test code = intraepitheli al 51927-9) lesion or malignancy. Comment (test code = This Pa p test has ) been evaluated with Radialpoint[employer] d technology. [employer], CT ( CP)CT (test code = 08926-2) screen ing location: [facility] [address] [facility], [place] [address] 2 Comment (test code = EXPLANA TORY NOTE: 9835121) The Pap is a screening test for [...] Detected Not Detected Methodo logy: code = 13578-9) Transcriptio n-Mediat ed Amplificatio n This assay [...] For additional information, pl ease refer tohttp://educat ion.LegalGuru/ faq/QNZ417p8(Th is link if provide d for information/edu catio nal purposes on ly.) JACEK (test code = RAC) Performing Organization Information: Site ID: IG Name: [facility] Address: [address] [place] [address] Director: Dr. Rajinder Grant Site ID: RGA Name: [facility] Address: [address] [place] [address] Director: Rajinder Grant [facility] CenterTHINPREP TIS AND HPV mRNA [id number] 20:30:00 Test Item Value Reference Interpretation Comments Range Clinical information None gi niurka (test code = 72159-0) Date of last NONE GIVEN menstrual period (test code = 8665-2) Prev. pap: (test code NONE G IVEN = 95949-2) Prev. bx: (test code NONE GI NIURKA = 62107-7) Source (test code = None giv en ) Statement of adequacy Satisf actory for (test code = 55251-8) evalua tion.Endocervi cony/transformat ion zone componentpresen t.Age and/or menstrua l status not prov ided Interpretation/result Negati ve for : (test code = intraepitheli al 73255-8) lesion or malignancy. Comment (test code = This Pa p test has ) been evaluated with Radialpointiste d technology. [employer], CT ( CP)CT (test code = 49664-1) screen ing location: [address], [place] [address] 2 Comment (test code = EXPLANA TORY NOTE: 7405171) The Pap is a screening test for [...] Detected Not Detected Methodo logy: code = 64990-4) Transcriptio n-Mediat ed Amplificatio n This assay [...] For additional information, pl ease refer tohttp://educat ion.LegalGuru/ faq/KKE464a0(Th is link if provide d for information/edu catio nal purposes on ly.) JACEK (test code = RAC) Performing Organization Information: Site ID: TIM Name: [facility] Address: [address] [place] [address] Director: Dr. Rajinder Grant Site ID: RGA Name: [facility] Address: [address] [place] [address] Director: Rajinder Grant [facility]THIN[facility]IS AND HPV mRNA [id number] 20:30:00 Test Item Value Reference Interpretation Comments Range Clinical information None gi niurka (test code = 45398-4) Date of last NONE GIVEN menstrual period (test code = 8665-2) Prev. pap: (test code NONE G IVEN = 25613-1) Prev. bx: (test code NONE GI NIURKA = 06368-3) Source (test code = [place] 15203-3) Statement of adequacy Satisf actory for (test code = 67128-6) evalua tion.Endocervi cony/transformat ion zone componentpresen t.Age and/or menstrua l status not prov ided Interpretation/result Negati ve for : (test code = intraepitheli al 61837-2) lesion or malignancy. Comment (test code = This Pa p test has ) been evaluated with [employer] technology. [employer], CT ( CP)CT (test code = 37423-1) screen ing location: [address], [facility] [address] 2 Comment (test code = EXPLANA TORY NOTE: 1783050) The Pap is a screening test for [...] Detected Not Detected Methodo logy: code = 98674-6) Transcriptio n-Mediat ed Amplificatio n This assay [...] additional information, pl ease refer tohttp://educat ion.q I-lighting/ faq/DXH909k1(Th is link if provide d for information/edu catio nal purposes on ly.) RAC (test code = RAC) Performing Organization Information: Site ID: IG Name: [facility] Address: [address] [place] [address] Director: Dr. Rajinder Grant Site ID: RGA Name: [facility] Address: [address] [place] [address] Director: Rajinder Grant [facility] CenterTHINPREP TIS AND HPV mRNA [id number] 20:30:00 Test Item Value Reference Interpretation Comments Range Clinical information None gi niurka (test code = 00316-9) Date of last NONE GIVEN menstrual period (test code = 8665-2) Prev. pap: (test code NONE G IVEN = 14669-6) Prev. bx: (test code NONE GI NIURKA = 59791-2) Source (test code = [place] [address]-7) Statement of adequacy Satisf actory for (test code = 97130-2) evalua tion.Endocervi cony/transformat ion zone componentpresen t.Age and/or menstrua l status not prov ided Interpretation/result Negati ve for : (test code = intraepitheli al 61440-9) lesion or malignancy. Comment (test code = This Pa p test has ) been evaluated with computerassiste d technology. [employer], CT ( CP)CT (test code = 35044-9) screen ing location: [facility] [address] [place] [address] 2 Comment (test code = EXPLANA TORY NOTE: 9185896) The Pap is a screening test for [...] Detected Not Detected Methodo logy: code = 12935-5) Transcriptio n-Mediat ed Amplificatio n This assay [...] For additional information, pl ease refer tohttp://educat ion.LegalGuru/ faq/HTV565c3(Th is link if provide d for information/edu catio nal purposes on ly.) JACEK (test code = RAC) Performing Organization Information: Site ID: IG Name: [facility] Address: [address] [place] [address] Director: Dr. Rajinder Grant Site ID: RGA Name: [facility] Address: [address] [place] [address] Director: Rajinder Grant [facility]IS AND HPV mRNA [id number] 20:30:00 Test Item Value Reference Interpretation Comments Range Clinical information None gi niurka (test code = 70568-9) Date of last NONE GIVEN menstrual period (test code = 8665-2) Prev. pap: (test code NONE G IVEN = 60740-6) Prev. bx: (test code NONE GI NIURKA = 72978-4) Source (test code = None giv en ) Statement of adequacy Satisf actory for (test code = 95798-2) evalua tion.Endocervi cony/transformat ion zone componentpresen t.Age and/or menstrua l status not prov ided Interpretation/result Negati ve for : (test code = intraepitheli al 18510-0) lesion or malignancy. Comment (test code = This Pa p test has ) been evaluated with computerassiste d technology. [employer], CT ( CP)CT (test code = 40713-4) screen ing location: [facility] [address] [place] [address], [place] [address] 2 Comment (test code = EXPLANA TORY NOTE: 8814319) The Pap is a screening test for [...] Detected Not Detected Methodo logy: code = 62780-7) Transcriptio n-Mediat ed Amplificatio n This assay [...] For additional information, pl ease refer tohttp://educat ion.BeMo .Qello/ faq/LKB975t4(Th is link if provide d for information/edu catio nal purposes on ly.) JACEK (test code = RAC) Performing Organization Information: Site ID: IG Name: [facility] Address: [address] [place] [address] Director: Dr. Rajinder Grant Site ID: RGA Name: [facility] Address: [address] [place] [address] Director: Rajinder Grant [facility]THINPRE[facility] TIS AND HPV mRNA [id number] 20:30:00 Test Item Value Reference Interpretation Comments Range Clinical information None gi niurka (test code = 74470-0) Date of last NONE GIVEN menstrual period (test code = 8665-2) Prev. pap: (test code NONE G IVEN = 69543-9) Prev. bx: (test code NONE GI NIURKA = 45608-0) Source (test code = [place] [address]-6) Statement of adequacy Satisf actory for (test code = 85225-9) evalua tion.Endocervi cony/transformat ion zone componentpresen t.Age and/or menstrua l status not prov ided Interpretation/result Negati ve for : (test code = intraepitheli al 43944-7) lesion or malignancy. Comment (test code = This Pa p test has ) been evaluated with De Novo[employer]iste d technology. [employer], CT ( CP)CT (test code = 78299-2) screen ing location: [address], [place] [address] 2 Comment (test code = EXPLANA TORY NOTE: 3129064) The Pap is a screening test for [...] Detected Not Detected Methodo logy: code = 44266-1) Transcriptio n-Mediat ed Amplificatio n This assay [...] For additional information, pl ease refer tohttp://educat ion.LegalGuru/ faq/QGS005f3(Th is link if provide d for information/edu catio nal purposes on ly.) JACEK (test code = RAC) Performing Organization Information: Site ID: IG Name: [facility] Address: [address] [place] [address] Director: Dr. Rajinder Grant Site ID: RGA Name: [facility] Address: [address] [place] [address] Director: Rajinder L [facility]THIN[facility]IS AND HPV mRNA [id number] 20:30:00 Test Item Value Reference Interpretation Comments Range Clinical information None gi niurka (test code = 85725-2) Date of last NONE GIVEN menstrual period (test code = 8665-2) Prev. pap: (test code NONE G IVEN = 65478-3) Prev. bx: (test code NONE GI NIURKA = 61552-3) Source (test code = None giv en ) Statement of adequacy Satisf actory for (test code = 61397-9) evalua tion.Endocervi cony/transformat ion zone componentpresen t.Age and/or menstrua l status not prov ided Interpretation/result Negati ve for : (test code = intraepitheli al 57013-7) lesion or malignancy. Comment (test code = This Pa p test has ) been evaluated with R[employer] d technology. [employer], CT ( CP)CT (test code = 95745-0) screen ing location: [place] [address] [address] [facility], [facility] [address] 2 Comment (test code = EXPLANA TORY NOTE: 8073121) The Pap is a screening test for [...] Detected Not Detected Methodo logy: code = 23549-4) Transcriptio n-Mediat ed Amplificatio n This assay [...] additional information, pl ease refer tohttp://educat ion.q uestdiagnostics .com/ faq/XKS087m8(Th is link if provide d for information/edu catio nal purposes on ly.) RAC (test code = RAC) Performing Organization Information: Site ID: IG Name: [facility] Address: [address] [place] [address] Director: Dr. Rajinder Grant Site ID: RGA Name: [facility] Address: [address] [place] [address] Director: Rajinder Grant [facility]THIN[facility] TIS AND HPV mRNA [id number] 20:30:00 Test Item Value Reference Interpretation Comments Range Clinical information None gi niurka (test code = 86232-6) Date of last NONE GIVEN menstrual period (test code = 8665-2) Prev. pap: (test code NONE G IVEN = 11719-1) Prev. bx: (test code NONE GI NIURKA = 25792-7) Source (test code = [place] 48768-0) Statement of adequacy Satisf actory for (test code = 65400-3) evalua tion.Endocervi cony/transformat ion zone componentpresen t.Age and/or menstrua l status not prov ided Interpretation/result Negati ve for : (test code = intraepitheli al 44056-9) lesion or malignancy. Comment (test code = This Pa p test has ) been evaluated with computerassiste d technology. [employer], CT ( CP)CT (test code = 52103-2) screen ing location: [address], [place] [address] 2 Comment (test code = EXPLANA TORY NOTE: 4530136) The Pap is a screening test for [...] Detected Not Detected Methodo logy: code = 63772-4) Transcriptio n-Mediat ed Amplificatio n This assay [...] For additional information, pl ease refer tohttp://educat ion.LegalGuru/ faq/TMY005c5(Th is link if provide d for information/edu catio nal purposes on ly.) JACEK (test code = JACEK) Performing Organization Information: Site ID: IG Name: [facility] Address: [address] [place] [address] Director: Dr. Rajinder Grant Site ID: RGA Name: [facility] Address: [address] [place] [address] Director: Rajinder Grant [facility]IN[facility] AND HPV mRNA [id number] 20:30:00 Test Item Value Reference Interpretation Comments Range Clinical information None gi niurka (test code = 28565-7) Date of last NONE GIVEN menstrual period (test code = 8665-2) Prev. pap: (test code NONE G IVEN = 44981-4) Prev. bx: (test code NONE GI NIURKA = 29132-4) Source (test code = None giv en ) Statement of adequacy Satisf actory for (test code = 05220-5) evalua tion.Endocervi cony/transformat ion zone componentpresen t.Age and/or menstrua l status not prov ided Interpretation/result Negati ve for : (test code = intraepitheli al 22395-2) lesion or malignancy. Comment (test code = This Pa p test has ) been evaluated with computerassiste d technology. [employer], CT ( CP)CT (test code = 46275-3) screen ing location: [facility] [address] [place] [address], [place] [address] Comment (test code = EXPLANA NONA NOTE: 9869991) The Pap is a screening test for [...] Detected Not Detected Methodo logy: code = 28584-8) Transcriptio n-Mediat ed Amplificatio n This assay [...] For additional information, pl ease refer tohttp://educat ion.LegalGuru/ faq/GZO328f0(Th is link if provide d for information/edu catio nal purposes on ly.) JACEK (test code = RAC) Performing Organization Information: Site ID: TIM Name: [facility] Address: [address] [place] [address] Director: Dr. Rajinder Grant Site ID: RGA Name: [facility] Address: [address] [place] [address] Director: Rajinder Grant [facility] 12 [id number] 18:14:37 Test Item Value Reference Range Interpretation Comments Ventricular rate (test code = 253) Atrial rate (test code = 255) MA interval (test code = 266) QRSD interval [...] of 07-NOV-2021 12:57,-No significant change was found- [address]2022-09-01 18:14:37 Test Item Value Reference Range Interpretation Comments Ventricular rate (test code = 253) Atrial rate (test code = 255) MA interval (test code = 266) QRSD interval [...] of 07-NOV-2021 12:57,-No significant change was found- [address]2022-09-01 18:14:37 Test Item Value Reference Range Interpretation Comments Ventricular rate (test code = 253) Atrial rate (test code = 255) MA interval (test code = 266) QRSD interval [...] of 07-NOV-2021 12:57,-No significant change was found- [facility] [Presence] in Respiratory specimen by LATESHA with probe [id number] 21:57:49 Test Item Value Reference Range Interpretation Comments SARS-CoV-2 (COVID-19) RNA [Presence] Detected in Respiratory specimen by LATESHA with probe detection (test code = 02890-3) Whether patient is employed in a Unknown healthcare setting (test code = 52455-0) Whether the patient has symptoms Unknown related to condition of interest (test code = 04739-3) Whether the patient was hospitalized Unknown for condition of interest (test code = 00846-9) Whether the patient was admitted to Unknown intensive care unit (ICU) for condition of interest (test code = 61632-0) Whether patient resides in a Unknown congregate care setting (test code = 92965-2) status (test code = Unknown 61923-1) Date and time of symptom onset (test Unknown code = 02198-2) [facility] function [id number] 18:40:00 Test Item Value Reference Range Interpretation [...] RAC) Organization Information: Site ID: KATERINA Name: [facility] Lab Address: [address] [place] [address] Director: Rajinder KiddGraham Regional Medical CenterHepatic function [id number] 18:40:00 Test Item Value Reference Range Interpretation [...] RAC) Organization Information: Site ID: KATERINA Name: [facility] Lab Address: [address] [place] [address] Director: Rajinder KiddG[facility] Medical CenterHepatic function [id number] 18:40:00 Test Item Value Reference Range Interpretation [...] RAC) Organization Information: Site ID: RGA [facility]: [facility] Address: [address] [place] [address] Director: Rajinder Lamarridge [facility] CenterHepatic function [id number] 18:40:00 Test Item Value Reference Range Interpretation [...] RAC) Organization Information: Site ID: RGA [facility] Address: [address] [place] [address] Director: Rajinder Girma LamarRudyTwin City HospitalHepatic function [id number] 18:40:00 Test Item Value Reference Range Interpretation [...] 1920-8) ALT (test code = 14 U/L 10-08 1742-6) WILDA (test code = FASTING: UNKNOWN WILDA) RAC (test code = Performing RAC) Organization Information: Site ID: RGA Name: [facility] Address: [address] [place] [address] Director: [facility]Hep[facility] function [id number] 18:40:00 Test Item Value Reference Range Interpretation [...] RAC) Organization Information: Site ID: RGA Name: [facility] Address: [address] [place] [address] Director: [facility] HospitalHepatic function [id number] 18:40:00 Test Item Value Reference Range Interpretation Comments Protein (test code 6.6 g/dL 6.1-8.1 = 2885-2) Albumin, S (test 4.1 g/dL 3.6-5.1 code = 1757) Globulin, total 2.5 See_Comment [Automated (test code [...] RAC) Organization Information: Site ID: RGA Name: [facility] Address: [address] [place] [address] Director: [place] Girma [facility] HospitalHepatic function [id number] 18:40:00 Test Item Value Reference Range Interpretation Comments Protein (test code 6.6 g/dL 6.1-8.1 = 2885-2) Albumin, S (test 4.1 g/dL 3.6-5.1 code = 1750-10) Globulin, total 2.5 See_Comment [Automated (test code [...] RAC) Organization Information: Site ID: BEBA Name: [facility] Address: [address] [place] [address] Director: Rajinder Girma WardThomastonClinton Memorial HospitalHepatic function [id number] 18:40:00 Test Item Value Reference Range Interpretation [...] RAC) Organization Information: Site ID: KATERINA Name: [facility] Address: [address] [place] [address] Director: Rajinder Parker JlkueuytZQFD-IyE-2 (COVID-19) RNA [Presence] in Respiratory specimen by LATESHA with probe [id number] 20:46:09 Test Item Value Reference Range Interpretation Comments SARS-CoV-2 (COVID-19) RNA Not detected [Presence] in Respiratory specimen by LATESHA with probe detection (test code = 48916-9) Whether patient is employed in a Unknown healthcare setting (test code = 63100-7) Whether the patient has symptoms Unknown related to condition of interest (test code = 27797-5) Whether the patient was Unknown hospitalized for condition of interest (test code = 47139-7) Whether the patient was admitted Unknown to intensive care unit (ICU) for condition of interest (test code = 83788-2) Whether patient resides in a Unknown congregate care setting (test code = 43891-1) status (test code = Unknown 38046-3) Date and time of symptom onset Unknown (test code = 88462-4) [facility]Thy[facility] stimulating [id number] 05:23:00 Test Item Value Reference Range Interpretation Comments TSH (test code mIU/L Reference Ra nge > = 3016-3) or = 20 Years 0.40-4.50 Range s First trimester 0.26-2.66 Secon d trimester 0.55-2.73 Third trimester 0.43-2.91 RAC (test code Performing = RAC) Organization Information: Site ID: RGA Name: [facility] Address: [address] [place] [address] Director: Rajinder Grant [facility] CenterThyroid stimulating [id number] 05:23:00 Test Item Value Reference Range Interpretation Comments TSH (test code mIU/L Reference Ra nge > = 3016-3) or = 20 Years 0.40-4.50 Range s First trimester 0.26-2.66 Secon d trimester 0.55-2.73 Third trimester 0.43-2.91 RAC (test code Performing = RAC) Organization Information: Site ID: RGA Name: [facility] Address: [address] [place] [address] Director: Rajinder Grant [facility]2022-06-11 05:23:00 Test Item Value Reference Range Interpretation Comments TSH (test code mIU/L Reference Ra nge > = 3016-3) or = 20 Years 0.40-4.50 Range s First trimester 0.26-2.66 Secon d trimester 0.55-2.73 Third trimester 0.43-2.91 RAC (test code Performing = RAC) Organization Information: Site ID: RGA Name: [facility] Address: [address] [place] [address] Director: Rajinder Grant [facility]2022-06-11 05:23:00 Test Item Value Reference Range Interpretation Comments TSH (test code mIU/L Reference Ra nge > = 3016-3) or = 20 Years 0.40-4.50 Range s First trimester 0.26-2.66 Secon d trimester 0.55-2.73 Third trimester 0.43-2.91 RAC (test code Performing = RAC) Organization Information: Site ID: RGA Name: [facility] Address: [address] [place] [address] Director: Rajinder Grant [facility]2022-06-11 05:23:00 Test Item Value Reference Range Interpretation Comments TSH (test code mIU/L Reference Ra nge > = 3016-3) or = 20 Years 0.40-4.50 Range s First trimester 0.26-2.66 Secon d trimester 0.55-2.73 Third trimester 0.43-2.91 RAC (test code Performing = RAC) Organization Information: Site ID: RGA Name: [facility] Address: [address] [place] [address] Director: Rajinder Grant [facility]2022-06-11 05:23:00 Test Item Value Reference Range Interpretation Comments TSH (test code mIU/L Reference Ra nge > = 3016-3) or = 20 Years 0.40-4.50 Range s First trimester 0.26-2.66 Secon d trimester 0.55-2.73 Third trimester 0.43-2.91 RAC (test code Performing = RAC) Organization Information: Site ID: RGA Name: [facility] Address: [address] [place], [place] [address] Director: Rajinder KiddSt[facility] Medical Centerroid stimulating [id number] 05:23:00 Test Item Value Reference Range Interpretation Comments TSH (test code 1.97 mIU/L Reference Ra nge > = 3016-3) or = 20 Years 0.40-4.50 Range s First trimester 0.26-2.66 Secon d trimester 0.55-2.73 Third trimester 0.43-2.91 RAC (test code Performing = RAC) Organization Information: Site ID: RGA Name: [facility] Address: [address] [place] [address] Director: Rajinder [facility]iddGu[facility] [id number] 05:23:00 Test Item Value Reference Range Interpretation Comments TSH (test code 1.97 mIU/L Reference Ra nge > = 3016-3) or = 20 Years 0.40-4.50 Range s First trimester 0.26-2.66 Secon d trimester 0.55-2.73 Third trimester 0.43-2.91 RAC (test code Performing = RAC) Organization Information: Site ID: RGA Name: [facility] Address: [address] [place] [address] Director: Rajinder LamarTwin City HospitalThyroid stimulating [id number] 05:23:00 Test Item Value Reference Range Interpretation Comments TSH (test code 1.97 mIU/L Reference Ra nge > = 3016-3) or = 20 Years 0.40-4.50 Range s First trimester 0.26-2.66 Secon d trimester 0.55-2.73 Third trimester 0.43-2.91 RAC (test code Performing = RAC) Organization Information: Site ID: RGA Name: [facility] Address: [address] [place] [address] Director: Rajinder KiddGraham Regional Medical CenterUA RFLX MICR CULT IF [id number] 18:48:00 Test Item Value Reference Range Interpretation [...] LACT) 0.7 mmol/L 0.7-2.0 N LIVER FUNCTION [id number] 15:14:00 Test Item Value Reference Range Interpretation [...] U/L 38-126 N (test code = ALKP) [id number] 15:14:00 Test Item Value Reference Range Interpretation [...] ~~~~~~~~~~~~ ~~~~~~~~~~~~~~~ ~~~~~~~~~~~~ ~~~~~~~~~~~~~~~ ~ BASIC METABOLIC [id number] 15:14:00 Test Item Value Reference Range Interpretation [...] = HEMINDEX) - CT ABD PELVIS W/O [id number] 14:53:00 [facility] : 1970 Sex: F FAX: Debo Gutierrez Carver: St: REG Name: HERSON JACKSON [facility] : 1970 Age/S: 51/F [address] Unit: [id number] Loc: [place] [address] Phys: Debo Gutierrez Acct: [id number] Dis Date: Status: REG ER PHONE #: [phone] Exam Date: 08/08/2021 1435 FAX #: [phone] Reason: flank pain EXAMS: CPT CODE: [id number] CT ABD PELVIS W/O CONT 27691 EXAM: CT abdomen and pelvis without contrast [...] 1 Signed Report (CONTINUED) FAX: Debo Gutierrez Carver: St: REG Name: HERSON JACKSON [facility] : 1970 Age/S: 51/F [address] Unit: [id number] Loc: [place] [address] Phys: Debo Gutierrez Acct: [id number] Dis Date: Status: REG ER PHONE #: [phone] Exam Date: 08/08/2021 1435 FAX #: [phone] Reason: flank pain EXAMS: CPT CODE: [id number] CT ABD PELVIS W/O CONT 92213 (Continued) nephrolithiasis . Evaluation of the bladder [...] 2 Signed Report (CONTINUED) FAX: Debo Gutierrez Carver: St: REG Name: HERSON JACKSON [facility] [place]: 1970 Age/S: 51/F [address] Unit: [id number] Loc: [place] [address] Phys: Debo Gutierrez Acct: [id number] Dis Date: Status: REG ER PHONE #: [phone] Exam Date: 2 1435 FAX #: [phone] Reason: flank pain EXAMS: CPT CODE: [id number] CT ABD PELVIS W/O CONT 96236 (Continued) CC: Debo Gutierrez Technologist: Debo Ortiz; SCOTT BENAVIDES Trnscrd Dt/Tm: 08/08/2021 (6118) tSTEFANY Orig Print D/T: S: 08/08/2021 (3032 PAGE 3 Signed ReportCB W/AUTO [id number] 14:21:00 Test Item Value Reference Range Interpretation [...] 3/uL 0.0-0.1 N - XR CHEST 1 [id number] 13:50:00 [facility] YUMIName: MANUELSHERITAHERSON : 1970 Sex: F FAX: Debo Gutierrez Carver: St: PRE Name: HERSON JACKSON [facility] : 1970 Age/S: 51/F [address] Unit #: [id number] Loc: [place] [address] Phys: Debo Gutierrez Acct: [id number] Dis Date:Status: PRE ER PHONE #: [phone] Exam Date: 08/08/2021 1340 FAX #: [phone] Reason: CODE SEPSIS EXAMS: CPT CODE: [id number] XR CHEST 1 V 50993 CHEST 1 VIEW: INDICATION: CODE SEPSIS COMPARISON: [...] Gutierrez Technologist: NAY GILLIS; STUDENT 2ND YEAR [facility] Date/Time/By: 08/08/2021 (1350) : By: [email or web address] PAGE 1 Signed Report FAX: Debo Gutierrez Carver: [facility]: PRE -- Name: HERSON JACKSON [facility] : 1970 Age/S: 51/F [address] Unit #: [id number] Loc: [place] [address] Phys: Debo Gutierrez APRNNP Acct: [id number] Dis Date: Status: PRE ER PHONE #: [phone] Exam Date: 08/08/2021 1340 FAX #: [phone] Reason: CODE SEPSIS EXAMS: CPT CODE: [id number] XR CHEST 1 V 25646 (Continued) Orig Print D/T: S: 08/08/2021 (1354) PAGE 2 Signed ReportTHINPREP TIS PAP AND HPV mRNA E6/E7 REFLEX HPV 16,18/45 2021-06-19 18:43:00 Test Item Value Reference Interpretation Comments Range Clinical information None gi niurka (test code = 73243-7) Date of last NONE GIVEN menstrual period (test code = 8665-2) Prev. pap: (test code NONE G IVEN = 02785-2) Prev. bx: (test code NONE GI NIURKA = 59988-5) Source (test code = [place] giv [place] 38420-1) Statement of adequacy Satisf actory for (test code = 42291-5) evalua tion.Endocervi cony/transformat ion zone componentpresen t.Age and/or menstrua l status not prov ided Interpretation/result Negati ve for : (test code = intraepitheli al 96969-8) lesion or malignancy. Comment (test code = This Pa p test has ) been evaluated with computerassiste d technology. Review PMT, CT(ASCP)CT furniture cleaner screening l ocation: (test code = 08659-4) [facility] [address], [facility] [address] Comment (test code = EXPLANA TORY NOTE: 5194758) The Pap is a screening test for [...] Detected Not Detected Methodo logy: code = 50452-3) Transcriptio n-Mediat ed Amplificatio n This assay dete cts E6/E7 viral messenger RNA ( mRNA) from 14high-ris k HPV types (16,18,31,33,35 ,39,4 5,51,52,56,58,5 9,66, 68). The analyt ical performance characteristics of thisassay have been determined by [employer].The modifications h ave not been cleare d or approvedby the FDA. This assay has been validated pursu antto the CLIA regula tions and is used forclinical purposes. For additional information, pl ease refer tohttp://educat ion.BeMo .Qello/ faq/HAL845u2(Th is link if provide d for information/edu catio nal purposes on ly.) JACEK (test code = RAC) Performing Organization Information: Site ID: IG Name: [facility] Address: [address] [place] [address] Director: Dr. Rajinder Grant Site ID: RGA Name: [facility] Address: [address] [place] [address] Director: Rajinder Grant [facility] CenterTHINPREP TIS PAP AND HPV mRNA E6/E7 REFLEX HPV 16,18/45 2021-06-19 18:43:00 Test Item Value Reference Interpretation Comments Range Clinical information None gi niurka (test code = 92823-6) Date of last NONE GIVEN menstrual period (test code = 8665-2) Prev. pap: (test code NONE G IVEN = 41205-1) Prev. bx: (test code NONE GI NIURKA = 02023-9) Source (test code = [place] 32201-4) Statement of adequacy Satisf actory for (test code = 60208-7) evalua tion.Endocervi cony/transformat ion zone componentpresen t.Age and/or menstrua l status not prov ided Interpretation/result Negati ve for : (test code = intraepitheli al 37265-4) lesion or malignancy. Comment (test code = This Pa p test has ) been evaluated with computerassiste d technology. Review PMT, CT(ASCP)CT furniture cleaner screening l ocation: (test code = 01683-6) [facility] [address], [place] [address] 2 Comment (test code = EXPLANA NONA NOTE: 5490052) The Pap is a screening test for [...] Detected Not Detected Methodo logy: code = 65350-1) Transcriptio n-Mediat ed Amplificatio n This assay dete cts E6/E7 viral messenger RNA ( mRNA) from 14high-ris k HPV types (16,18,31,33,35 ,39,4 5,51,52,56,58,5 9,66, 68). The analyt ical performance characteristics of thisassay have been determined by [employer].The modifications h ave not been cleare d or approvedby the FDA. This assay has been validated pursu antto the CLIA regula tions and is used forclinical purposes. For additional information, pl ease refer tohttp://educat ion.BeMo .Qello/ faq/UXC926l8(Th is link if provide d for information/edu catio nal purposes on ly.) RAC (test code = RAC) Performing Organization Information: Site ID: IG Name: [facility] Address: [address] [place] [address] Director: Dr. Rajinder Grant Site ID: RGA Name: [facility] Address: [address] [place] [address] Director: Rajinder Grant [facility] CenterTHINPREP TIS PAP AND HPV mRNA E6/E7 REFLEX HPV 16,18/45 2021-06-19 18:43:00 Test Item Value Reference Interpretation Comments Range Clinical information None gi niurka (test code = 55163-8) Date of last NONE GIVEN menstrual period (test code = 8665-2) Prev. pap: (test code NONE G IVEN = 65058-1) Prev. bx: (test code NONE GI NIURKA = 91702-2) Source (test code = None giv en ) Statement of adequacy Satisf actory for (test code = 54187-8) evalua tion.Endocervi cony/transformat ion zone componentpresen t.Age and/or menstrua l status not prov ided Interpretation/result Negati ve for : (test code = intraepitheli al 70280-2) lesion or malignancy. Comment (test code = This Pa p test has ) been evaluated with computerassiste d technology. Review PMT, CT(ASCP)CT furniture cleaner screening l ocation: (test code = 36755-3) [facility] [address], [facility] [address] Comment (test code = EXPLANA TORY NOTE: 1344602) The Pap is a screening test for [...] Detected Not Detected Methodo logy: code = 37486-3) Transcriptio n-Mediat ed Amplificatio n This assay dete cts E6/E7 viral messenger RNA ( mRNA) from 14high-ris k HPV types (16,18,31,33,35 ,39,4 5,51,52,56,58,5 9,66, 68). The analyt ical performance characteristics of thisassay have been determined by [employer].The modifications h ave not been cleare d or approvedby the FDA. This assay has been validated pursu antto the CLIA regula tions and is used forclinical purposes. For additional information, pl ease refer tohttp://educat ion.BeMo .Qello/ faq/GGA496g9(Th is link if provide d for information/edu catio nal purposes on ly.) JACEK (test code = JACEK) Performing Organization Information: Site ID: IG Name: [facility] Address: [address] [place] [address] Director: Dr. Rajinder Grant Site ID: RGA Name: [facility] Address: [address] [place] [address] Director: Rajinder Grant [facility]THINPREP TIS PAP AND HPV mRNA E6/E7 REFLEX HPV 16,18/45 2021-06-19 18:43:00 Test Item Value Reference Interpretation Comments Range Clinical information None gi niurka (test code = 80068-1) Date of last NONE GIVEN menstrual period (test code = 8665-2) Prev. pap: (test code NONE G IVEN = 75422-2) Prev. bx: (test code NONE GI NIURKA = 29896-3) Source (test code = None giv en ) Statement of adequacy Satisf actory for (test code = 28915-4) evalua tion.Endocervi cony/transformat ion zone componentpresen t.Age and/or menstrua l status not prov ided Interpretation/result Negati ve for : (test code = intraepitheli al 05469-6) lesion or malignancy. Comment (test code = This Pa p test has ) been evaluated with computerassiste d technology. Review PMT, CT(ASCP)CT furniture cleaner screening l ocation: (test code = 75799-3) [facility] [address], [facility] [address] Comment (test code = EXPLANA TORY NOTE: 4640411) The Pap is a screening test for [...] Detected Not Detected Methodo logy: code = 70365-8) Transcriptio n-Mediat ed Amplificatio n This assay dete cts E6/E7 viral messenger RNA ( mRNA) from 14high-ris k HPV types (16,18,31,33,35 ,39,4 5,51,52,56,58,5 9,66, 68). The analyt ical performance characteristics of thisassay have been determined by [employer].The modifications h ave not been cleare d or approvedby the FDA. This assay has been validated pursu antto the CLIA regula tions and is used forclinical purposes. For additional information, pl ease refer tohttp://educat ion.BeMo .Qello/ faq/OMU436j8(Th is link if provide d for information/edu catio nal purposes on ly.) RAC (test code = RAC) Performing Organization Information: Site ID: IG Name: [facility] [facility] Address: [address] [place] [address] Director: Dr. Rajinder Grant Site ID: RGA Name: [facility] Address: [address] [place] [address] Director: Rajinder Grant [facility] mRNA E6/E7 REFLEX HPV 16,18/45 2021-06-19 18:43:00 Test Item Value Reference Interpretation Comments Range Clinical information None gi niurka (test code = 64090-6) Date of last NONE GIVEN menstrual period (test code = 8665-2) Prev. pap: (test code NONE G IVEN = 08137-7) Prev. bx: (test code NONE GI NIURKA = 52274-0) Source (test code = None giv [place] 33173-7) Statement of adequacy Satisf actory for (test code = 79967-6) evalua tion.Endocervi cony/transformat ion zone componentpresen t.Age and/or menstrua l status not prov ided Interpretation/result Negati ve for : (test code = intraepitheli [place] 16622-6) lesion or malignancy. Comment (test code = This Pa p test has ) been evaluated with computerassiste d technology. Review PMT, CT(ASCP)CT furniture cleaner screening l ocation: (test code = 58332-5) [facility] [address], [place] [address] 2 Comment (test code = EXPLANA TORY NOTE: 6796027) The Pap is a screening test for [...] Detected Not Detected Methodo logy: code = 72651-8) Transcriptio n-Mediat ed Amplificatio n This assay dete cts E6/E7 viral messenger RNA ( mRNA) from 14high-ris k HPV types (16,18,31,33,35 ,39,4 5,51,52,56,58,5 9,66, 68). The analyt ical performance characteristics of thisassay have been determined by [employer].The modifications h ave not been cleare d or approvedby the FDA. This assay has been validated pursu antto the CLIA regula tions and is used forclinical purposes. For additional information, pl ease refer tohttp://educat ion.LegalGuru/ faq/GDS175h4(Th is link if provide d for information/edu catio nal purposes on ly.) JACEK (test code = RAC) Performing Organization Information: Site ID: IG Name: [facility] Address: [address] [place] [address] Director: Dr. Rajinder Grant Site ID: RGA Name: [facility] Address: [address] [place] [address] Director: Rajinder Grant [facility] HPV mRNA E6/E7 REFLEX HPV 16,18/45 2021-06-19 18:43:00 Test Item Value Reference Interpretation Comments Range Clinical information None gi niurka (test code = 89500-2) Date of last NONE GIVEN menstrual period (test code = 8665-2) Prev. pap: (test code NONE G IVEN = 80503-3) Prev. bx: (test code NONE GI NIURKA = 19005-6) Source (test code = None giv en ) Statement of adequacy Satisf actory for (test code = 66623-8) evalua tion.Endocervi cony/transformat ion zone componentpresen t.Age and/or menstrua l status not prov ided Interpretation/result Negati ve for : (test code = intraepitheli al 34585-7) lesion or malignancy. Comment (test code = This Pa p test has ) been evaluated with computerassiste d technology. Review PMT, CT(ASCP)CT furniture cleaner screening l ocation: (test code = ) [facility] [address], [place] [address] 2 Comment (test code = EXPLANA TORDeloris NOTE: 4992833) The Pap is a screening test for [...] Detected Not Detected Methodo logy: code = 68780-4) Transcriptio n-Mediat ed Amplificatio n This assay dete cts E6/E7 viral messenger RNA ( mRNA) from 14high-ris k HPV types (16,18,31,33,35 ,39,4 5,51,52,56,58,5 9,66, 68). The analyt ical performance characteristics of thisassay have been determined by [employer].The modifications h ave not been cleare d or approvedby the FDA. This assay has been validated pursu antto the CLIA regula tions and is used forclinical purposes. For additional information, pl ease refer tohttp://educat ion.BeMo .Qello/ faq/PVL188a7(Th is link if provide d for information/edu catio nal purposes on ly.) JACEK (test code = RAC) Performing Organization Information: Site ID: IG Name: [facility] Address: [address] [place] [address] Director: Dr. Rajinder Grant Site ID: RGA Name: [facility] Address: [address] [place] [address] Director: Rajinder L [facility] mRNA E6/E7 REFLEX HPV 16,18/45 2021-06-19 18:43:00 Test Item Value Reference Interpretation Comments Range Clinical information None gi niurka (test code = 49567-2) Date of last NONE GIVEN menstrual period (test code = 8665-2) Prev. pap: (test code NONE G IVEN = 52276-0) Prev. bx: (test code NONE GI NIURKA = 19951-6) Source (test code = None giv en ) Statement of adequacy Satisf actory for (test code = 07134-9) evalua tion.Endocervi cony/transformat ion zone componentpresen t.Age and/or menstrua l status not prov ided Interpretation/result Negati ve for : (test code = intraepitheli al 67973-9) lesion or malignancy. Comment (test code = This Pa p test has ) been evaluated with computerassiste d technology. Review PMT, CT(ASCP)CT furniture cleaner screening l ocation: (test code = 34663-5) [facility] [address], [facility] [address] Comment (test code = EXPLANA TORY NOTE: 2676083) The Pap is a screening test for [...] Detected Not Detected Methodo logy: code = 65315-5) Transcriptio n-Mediat ed Amplificatio n This assay dete cts E6/E7 viral messenger RNA ( mRNA) from 14high-ris k HPV types (16,18,31,33,35 ,39,4 5,51,52,56,58,5 9,66, 68). The analyt ical performance characteristics of thisassay have been determined by [employer].The modifications h ave not been cleare d or approvedby the FDA. This assay has been validated pursu antto the CLIA regula tions and is used forclinical purposes. For additional information, pl ease refer tohttp://educat ion.BeMo .Qello/ faq/ISV912t4(Th is link if provide d for information/edu catio nal purposes on ly.) RAC (test code = RAC) Performing Organization Information: Site ID: IG Name: [facility] Address: [address] [place] [address] Director: Dr. Rajinder Grant Site ID: RGA Name: [facility] Address: [address] [place] [address] Director: Rajinder Grant [facility], WITH REFLEX TO [id number] 09:37:00 Test Item Value Reference Interpretation Comments Range Color, UA (test code YELLOW YELLOW = 5778-6) Appearance (test CLEAR CLEAR code = 5767-9) Specific gravity, 1.001-1.035 urine (test code = 5811-5) pH, urine (test code 5.0-8.0 = 5803-2) Glucose, urine (test NEGATIVE NEGATIVE code = 34312-3) Bilirubin, UA (test NEGATIVE NEGATIVE code = 5770-3) Ketones, UA (test NEGATIVE NEGATIVE code = 2514-8) Occult blood, urine NEGATIVE NEGATIVE (test code = 5794-3) Protein, UA (test NEGATIVE NEGATIVE code = 45176-2) Nitrite, UA (test NEGATIVE NEGATIVE code = [...] code = NONE SEEN See_Comment [Autom ated 99196-9) message] The sy stem which generated this result transmitted reference range : < OR = 2 /HPF. Th e reference range was not used to interpret this result as normal/abnormal . Squamous epithelial NONE SEEN See_Comment [Automa aydin cells, UA (test code message ] The system = 81664-0) which generated this result transmitted reference range [...] URINE, code = 630-4) ROUTINE Micro Number: [id number] Test Status: Fi nal Specimen Source [...] RAC) Organization Information: Site ID: RGA Name: [facility] Address: [address] [place] [address] Director: Rajinder Grant Lab Interpretation Abnormal (test code = 78729-7) [facility] [id number] 09:37:00 Test Item Value Reference Interpretation Comments Range Color, UA (test code YELLOW YELLOW = 5778-6) Appearance (test CLEAR CLEAR code = 5767-9) Specific gravity, 1.001-1.035 urine (test code = 5811-5) pH, urine (test code 5.0-8.0 = 5803-2) Glucose, urine (test NEGATIVE NEGATIVE code = 47283-5) Bilirubin, UA (test NEGATIVE NEGATIVE code = 5770-3) Ketones, UA (test NEGATIVE NEGATIVE code = 2514-8) Occult blood, urine NEGATIVE NEGATIVE (test code = 5794-3) Protein, UA (test NEGATIVE NEGATIVE code = 02682-3) Nitrite, UA (test NEGATIVE NEGATIVE code = [...] code = NONE SEEN See_Comment [Autom ated 39072-8) message] The sy stem which generated this result transmitted reference range : < OR = 2 /HPF. Th e reference range was not used to interpret this result as normal/abnormal . Squamous epithelial NONE SEEN See_Comment [Automa aydin cells, UA (test code message ] The system = 14413-8) which generated this result transmitted reference range [...] URINE, code = 630-4) ROUTINE Micro Number: [id number] 0 Test Status: Fi nal Specimen Source [...] RAC) Organization Information: Site ID: BEBA Name: [facility] Address: [address] [place] [address] Director: Rajinder Grant Lab Interpretation Abnormal (test code = 53927-2) [facility] TO [id number] 09:37:00 Test Item Value Reference Interpretation Comments Range Color, UA (test code YELLOW YELLOW = 5778-6) Appearance (test CLEAR CLEAR code = 5767-9) Specific gravity, 1.001-1.035 urine (test code = 5811-5) pH, urine (test code 5.0-8.0 = 5803-2) Glucose, urine (test NEGATIVE NEGATIVE code = 90483-3) Bilirubin, UA (test NEGATIVE NEGATIVE code = 5770-3) Ketones, UA (test NEGATIVE NEGATIVE code = 2514-8) Occult blood, urine NEGATIVE NEGATIVE (test code = 5794-3) Protein, UA (test NEGATIVE NEGATIVE code = 28508-0) Nitrite, UA (test NEGATIVE NEGATIVE code = [...] code = NONE SEEN See_Comment [Autom ated 06688-2) message] The sy stem which generated this result transmitted reference range : < OR = 2 /HPF. Th e reference range was not used to interpret this result as normal/abnormal . Squamous epithelial NONE SEEN See_Comment [Automa aydin cells, UA (test code message ] The system = 72174-5) which generated this result transmitted reference range [...] URINE, code = 630-4) ROUTINE Micro Number: [id number] Test Status: Fi nal Specimen Source [...] = Performing RAC) Organization Information: Site ID: RGRd Name: [facility] Address: [address] [place] [address] Director: Rajinder Grant Lab Interpretation Abnormal (test code = 29834-4) [facility] TO [id number] 09:37:00 Test Item Value Reference Interpretation Comments Range Color, UA (test code YELLOW YELLOW = 5778-6) Appearance (test CLEAR CLEAR code = 5767-9) Specific gravity, 1.001-1.035 urine (test code = 5811-5) pH, urine (test code 5.0-8.0 = 5803-2) Glucose, urine (test NEGATIVE NEGATIVE code = 74866-8) Bilirubin, UA (test NEGATIVE NEGATIVE code = 5770-3) Ketones, UA (test NEGATIVE NEGATIVE code = 2514-8) Occult blood, urine NEGATIVE NEGATIVE (test code = 5794-3) Protein, UA (test NEGATIVE NEGATIVE code = 56954-0) Nitrite, UA (test NEGATIVE NEGATIVE code = [...] code = NONE SEEN See_Comment [Autom ated 16107-5) message] The sy stem which generated this result transmitted reference range : < OR = 2 /HPF. Th e reference range was not used to interpret this result as normal/abnormal . Squamous epithelial NONE SEEN See_Comment [Automa aydin cells, UA (test code message ] The system = 30631-1) which generated this result transmitted reference range [...] URINE, code = 630-4) ROUTINE Micro Number: [id number] Test Status: Fi nal Specimen Source [...] RAC) Organization Information: Site ID: RGA Name: [facility] Address: [address] [place] [address] Director: Rajinder Grant Lab Interpretation Abnormal (test code = 08702-9) [facility] TO [id number] 09:37:00 Test Item Value Reference Interpretation Comments Range Color, UA (test code YELLOW YELLOW = 5778-6) Appearance (test CLEAR CLEAR code = 5767-9) Specific gravity, 1.001-1.035 urine (test code = 5811-5) pH, urine (test code 5.0-8.0 = 5803-2) Glucose, urine (test NEGATIVE NEGATIVE code = 72692-6) Bilirubin, UA (test NEGATIVE NEGATIVE code = 5770-3) Ketones, UA (test NEGATIVE NEGATIVE code = 7744-8) Occult blood, urine NEGATIVE NEGATIVE (test code = 5794-3) Protein, UA (test NEGATIVE NEGATIVE code = 89304-8) Nitrite, UA (test NEGATIVE NEGATIVE code = [...] code = NONE SEEN See_Comment [Autom ated 24823-5) message] The sy stem which generated this result transmitted reference range : < OR = 2 /HPF. Th e reference range was not used to interpret this result as normal/abnormal . Squamous epithelial NONE SEEN See_Comment [Automa aydin cells, UA (test code message ] The system = 95659-9) which generated this result transmitted reference range [...] URINE, code = 630-4) ROUTINE Micro Number: [id number] Test Status: Fi nal Specimen Source [...] RAC) Organization Information: Site ID: RGA Name: [facility] Address: [address] [place] [address] Director: Rajinder Grant Lab Interpretation Abnormal (test code = 79833-7) [facility] TO [id number] 09:37:00 Test Item Value Reference Interpretation Comments Range Color, UA (test code YELLOW YELLOW = 5778-6) Appearance (test CLEAR CLEAR code = 5767-9) Specific gravity, 1.001-1.035 urine (test code = 5811-5) pH, urine (test code 5.0-8.0 = 5803-2) Glucose, urine (test NEGATIVE NEGATIVE code = 93266-1) Bilirubin, UA (test NEGATIVE NEGATIVE code = 5770-3) Ketones, UA (test NEGATIVE NEGATIVE code = 2514-8) Occult blood, urine NEGATIVE NEGATIVE (test code = 5794-3) Protein, UA (test NEGATIVE NEGATIVE code = 51226-0) Nitrite, UA (test NEGATIVE NEGATIVE code = [...] code = NONE SEEN See_Comment [Autom ated 67514-7) message] The sy stem which generated this result transmitted reference range : < OR = 2 /HPF. Th e reference range was not used to interpret this result as normal/abnormal . Squamous epithelial NONE SEEN See_Comment [Automa aydin cells, UA (test code message ] The system = 47806-3) which generated this result transmitted reference range [...] URINE, code = 630-4) ROUTINE Micro Number: [id number] Test Status: Fi nal Specimen Source [...] RAC) Organization Information: Site ID: BEBA Name: [facility] Address: [address] [place] [address] Director: Rajinder Grant Lab Interpretation Abnormal (test code = 79095-3) [facility] TO [id number] 09:37:00 Test Item Value Reference Interpretation Comments Range Color, UA (test code YELLOW YELLOW = 5778-6) Appearance (test CLEAR CLEAR code = 5767-9) Specific gravity, 1.009 1.001-1.035 urine (test code = 5811-5) pH, urine (test code 7.0 5.0-8.0 = 5803-2) Glucose, urine (test NEGATIVE NEGATIVE code = 68055-9) Bilirubin, UA (test NEGATIVE NEGATIVE code = 5770-3) Ketones, UA (test NEGATIVE NEGATIVE code = 2514-8) Occult blood, urine NEGATIVE NEGATIVE (test code = 5794-3) Protein, UA (test NEGATIVE NEGATIVE code = 65185-5) Nitrite, UA (test NEGATIVE NEGATIVE code = [...] code = NONE SEEN See_Comment [Autom ated 86491-4) message] The sy stem which generated this result transmitted reference range : < OR = 2 /HPF. Th e reference range was not used to interpret this result as normal/abnormal . Squamous epithelial NONE SEEN See_Comment [Automa aydin cells, UA (test code message ] The system = 51793-2) which generated this result transmitted reference range [...] URINE, code = 630-4) ROUTINE Micro Number: [id number] Test Status: Fi nal Specimen Source [...] RAC) Organization Information: Site ID: Rd Name: [facility] Address: [address] [place] [address] Director: Rajinder Grant Lab Interpretation Abnormal (test code = 18001-0) [facility] urinalysis [id number] 18:20:00 Test Item Value Reference Range Interpretation Comments Color urine, POC (test Straw code = 2584842) Clarity urine, POC (test Clear code = 9130767) Glucose urine, POC (test Negative Negative code = 8455715) Bilirubin urine, POC Negative Negative (test code = 0962640) Ketones urine, POC (test Negative Negative code = 3506866) Specific gravity urine, 1.005-1.030 POC (test code = 3440005) Blood urine, POC (test Trace Negative A code = 3201747) pH urine, POC (test code See_Comment [A utomated message] = 3587472) The system [employer] generated this result transmitted ref erence range: 5.0, 5.5 , 6.0, 6.5, 7.0, 7.5, 8.0, 8.5. The refere nce range was not u sed to interpret this result as normal/abnor mal. Protein urine, POC (test Negative Negative code = 2151749) Urobilinogen urine, POC <2.0 See_Comment [Au tomated message] (test code = 2539350) The sy stem which generated this result transmitted ref erence range: <=2.0. T he reference range was not used to int erpret this result as normal/abnormal . Nitrite urine, POC (test Negative Negative code = 3943407) Leukocyte esterase Negative Negative urine, POC (test code = 8135723) Lab Interpretation (test Abnormal code = 22571-1) [facility] urinalysis [id number] 18:20:00 Test Item Value Reference Range Interpretation Comments Color urine, POC (test Straw code = 0964877) Clarity urine, POC (test Clear code = 6320948) Glucose urine, POC (test Negative Negative code = 8985700) Bilirubin urine, POC Negative Negative (test code = 0058435) Ketones urine, POC (test Negative Negative code = 2260438) Specific gravity urine, 1.005-1.030 POC (test code = 1175366) Blood urine, POC (test Trace Negative A code = 0612778) pH urine, POC (test code See_Comment [A utomated message] = 5911655) The system [employer] generated this result transmitted ref erence range: 5.0, 5.5 , 6.0, 6.5, 7.0, 7.5, 8.0, 8.5. The refere nce range was not u sed to interpret this result as normal/abnor mal. Protein urine, POC (test Negative Negative code = 8207210) Urobilinogen urine, POC <2.0 See_Comment [Au tomated message] (test code = 7026178) The sy stem which generated this result transmitted ref erence range: <=2.0. T he reference range was not used to int erpret this result as normal/abnormal . Nitrite urine, POC (test Negative Negative code = 9865709) Leukocyte esterase Negative Negative urine, POC (test code = 1622628) Lab Interpretation (test Abnormal code = 72755-3) [facility] urinalysis [id number] 18:20:00 Test Item Value Reference Range Interpretation Comments Color urine, POC (test Straw code = 4905274) Clarity urine, POC (test Clear code = 5298708) Glucose urine, POC (test Negative Negative code = 6667983) Bilirubin urine, POC Negative Negative (test code = 3752176) Ketones urine, POC (test Negative Negative code = 0729055) Specific gravity urine, 1.005-1.030 POC (test code = 9156816) Blood urine, POC (test Trace Negative A code = 9934035) pH urine, POC (test code See_Comment [A utomated message] = 0098023) The system Sorbent Therapeuticsic h generated this result transmitted ref erence range: 5.0, 5.5 , 6.0, 6.5, 7.0, 7.5, 8.0, 8.5. The refere nce range was not u sed to interpret this result as normal/abnor mal. Protein urine, POC (test Negative Negative code = 6206449) Urobilinogen urine, POC <2.0 See_Comment [Au tomated message] (test code = 8165255) The sy stem which generated this result transmitted ref erence range: <=2.0. T he reference range was not used to int erpret this result as normal/abnormal . Nitrite urine, POC (test Negative Negative code = 1236761) Leukocyte esterase Negative Negative urine, POC (test code = 3424159) Lab Interpretation (test Abnormal code = 86952-6) [facility] urinalysis [id number] 18:20:00 Test Item Value Reference Range Interpretation Comments Color urine, POC (test Straw code = 1769840) Clarity urine, POC (test Clear code = 4442391) Glucose urine, POC (test Negative Negative code = 4102560) Bilirubin urine, POC Negative Negative (test code = 1788433) Ketones urine, POC (test Negative Negative code = 6085032) Specific gravity urine, 1.005-1.030 POC (test code = 4949502) Blood urine, POC (test Trace Negative A code = 1572671) pH urine, POC (test code See_Comment [A utomated message] = 1747788) The system [employer] generated this result transmitted ref erence range: 5.0, 5.5 , 6.0, 6.5, 7.0, 7.5, 8.0, 8.5. The refere nce range was not u sed to interpret this result as normal/abnor mal. Protein urine, POC (test Negative Negative code = 0311776) Urobilinogen urine, POC <2.0 See_Comment [Au tomated message] (test code = 1169828) The sy stem which generated this result transmitted ref erence range: <=2.0. T he reference range was not used to int erpret this result as normal/abnormal . Nitrite urine, POC (test Negative Negative code = 0505302) Leukocyte esterase Negative Negative urine, POC (test code = 0154456) Lab Interpretation (test Abnormal code = 51727-8) [facility] urinalysis [id number] 18:20:00 Test Item Value Reference Range Interpretation Comments Color urine, POC (test Straw code = 7455663) Clarity urine, POC (test Clear code = 5145557) Glucose urine, POC (test Negative Negative code = 7740472) Bilirubin urine, POC Negative Negative (test code = 3138728) Ketones urine, POC (test Negative Negative code = 6252778) Specific gravity urine, 1.005-1.030 POC (test code = 6492121) Blood urine, POC (test Trace Negative A code = 6480903) pH urine, POC (test code See_Comment [A utomated message] = 5623929) The system [employer] generated this result transmitted ref erence range: 5.0, 5.5 , 6.0, 6.5, 7.0, 7.5, 8.0, 8.5. The refere nce range was not u sed to interpret this result as normal/abnor mal. Protein urine, POC (test Negative Negative code = 8382107) Urobilinogen urine, POC <2.0 See_Comment [Au tomated message] (test code = 7666346) The sy stem which generated this result transmitted ref erence range: <=2.0. T he reference range was not used to int erpret this result as normal/abnormal . Nitrite urine, POC (test Negative Negative code = 9583242) Leukocyte esterase Negative Negative urine, POC (test code = 7858082) Lab Interpretation (test Abnormal code = 04867-5) [facility] urinalysis [id number] 18:20:00 Test Item Value Reference Range Interpretation Comments Color urine, POC (test Straw code = 3787336) Clarity urine, POC (test Clear code = 2863297) Glucose urine, POC (test Negative Negative code = 1324519) Bilirubin urine, POC Negative Negative (test code = 1232802) Ketones urine, POC (test Negative Negative code = 1738576) Specific gravity urine, 1.005-1.030 POC (test code = 6220385) Blood urine, POC (test Trace Negative A code = 0573905) pH urine, POC (test code See_Comment [A utomated message] = 4926697) The system [employer] h generated this result transmitted ref erence range: 5.0, 5.5 , 6.0, 6.5, 7.0, 7.5, 8.0, 8.5. The refere nce range was not u sed to interpret this result as normal/abnor mal. Protein urine, POC (test Negative Negative code = 4046650) Urobilinogen urine, POC <2.0 See_Comment [Au tomated message] (test code = 1928601) The sy stem which generated this result transmitted ref erence range: <=2.0. T he reference range was not used to int erpret this result as normal/abnormal . Nitrite urine, POC (test Negative Negative code = 4302177) Leukocyte esterase Negative Negative urine, POC (test code = 7768466) Lab Interpretation (test Abnormal code = 38979-1) [facility] urinalysis [id number] 18:20:00 Test Item Value Reference Range Interpretation Comments Color urine, POC (test Straw code = 8998248) Clarity urine, POC (test Clear code = 7828379) Glucose urine, POC (test Negative Negative code = 6440945) Bilirubin urine, POC Negative Negative (test code = 8838696) Ketones urine, POC (test Negative Negative code = 3826409) Specific gravity urine, 1.015 1.005-1.030 POC (test code = 9321846) Blood urine, POC (test Trace Negative A code = 0453929) pH urine, POC (test code 8.0 See_Comment [A utomated message] = 7071935) The system [employer] generated this result transmitted ref erence range: 5.0, 5.5 , 6.0, 6.5, 7.0, 7.5, 8.0, 8.5. The refere nce range was not u sed to interpret this result as normal/abnor mal. Protein urine, POC (test Negative Negative code = 0732352) Urobilinogen urine, POC <2.0 <=2.0 (test code = 8417939) Nitrite urine, POC (test Negative Negative code = 9110497) Leukocyte esterase Negative Negative urine, POC (test code = 6006329) Lab Interpretation (test Abnormal code = 49806-0) [facility] FbokpqnlREGD-GqM-3 (COVID-19) RNA [Presence] in Respiratory specimen by LATESHA with probe [id number] 09:55:01 Test Item Value Reference Range Interpretation Comments SARS-CoV-2 (COVID-19) RNA Not detected Not-Detected [Presence] in Respiratory specimen by LATESHA with probe detection (test code = 21705-5) Whether patient is employed in a healthcare setting (test code = 28524-5) Whether the patient has symptoms related to condition of interest (test code = 72112-9) Patient was hospitalized because of this condition (test code = 14882-1) Whether the patient was admitted to intensive care unit (ICU) for condition of interest (test code = 52561-7) Whether patient resides in a congregate care setting (test code = 23423-5) [facility] [Presence] in Respiratory specimen by LATESHA with probe [id number] 03:07:44 Test Item Value Reference Range Interpretation Comments SARS-CoV-2 (COVID-19) RNA Not detected Not-Detected [Presence] in Respiratory specimen by LATESHA with probe detection (test code = 26463-4) Whether patient is employed in a healthcare setting (test code = 07514-1) Whether the patient has symptoms related to condition of interest (test code = 75441-7) Patient was hospitalized because of this condition (test code = 38042-5) Whether the patient was admitted to intensive care unit (ICU) for condition of interest (test code = 19660-8) Whether patient resides in a congregate care setting (test code = 24455-2) [facility] (COVID-19) RNA [Presence] in Respiratory specimen by LATESHA with probe [id number] 02:34:50 Test Item Value Reference Range Interpretation Comments SARS-CoV-2 (COVID-19) RNA Not detected Not-Detected [Presence] in Respiratory specimen by LATESHA with probe detection (test code = 62202-1) Whether patient is employed in a healthcare setting (test code = 78938-6) Whether the patient has symptoms related to condition of interest (test code = 80331-6) Patient was hospitalized because of this condition (test code = 78162-6) Whether the patient was admitted to intensive care unit (ICU) for condition of interest (test code = 04592-0) Whether patient resides in a congregate care setting (test code = 69277-7) [facility]-CoV-2 (COVID-19) RNA [Presence] in Respiratory specimen by LATESHA with probe [id number] 22:46:50 Test Item Value Reference Range Interpretation Comments SARS-CoV-2 (COVID-19) RNA Not detected Not-Detected [Presence] in Respiratory specimen by LATESHA with probe detection (test code = 87200-1) [facility] (COVID-19) RNA [Presence] in Respiratory specimen by LATESHA with probe [id number] 10:19:38 Test Item Value Reference Range Interpretation Comments SARS-CoV-2 (COVID-19) RNA Not detected Not-Detected [Presence] in Respiratory specimen by LATESHA with probe detection (test code = 04274-5) [facility] (COVID-19) RNA [Presence] in Respiratory specimen by LATESHA with probe [id number] 00:17:03 Test Item Value Reference Range Interpretation Comments SARS-CoV-2 (COVID-19) RNA Not detected Not-Detected [Presence] in Respiratory specimen by LATESHA with probe detection (test code = 80822-2) [facility] RNA [Presence] in Respiratory specimen by LATESHA with probe [id number] 00:59:15 Test Item Value Reference Range Interpretation Comments SARS-CoV-2 (COVID-19) RNA Not detected Not-Detected [Presence] in Respiratory specimen by LATESHA with probe detection (test code = 06652-3) [facility] [id number] 08:12:00 Test Item Value Reference [...] PELVIS WITHOUT CONTRAST, RENAL STONE PROTOCOL:Location code: [id number] HISTORY: Flank painCOMPARISON: CT abdomen and pelvis [...] Range Interpretation Comments COLOR (test code = Harris YELLOW A COLU) CLARITY (test code = [...] 11:03:05CT abdomen and pelvis with contrastLocation Code: [id number] HISTORY: Lower abdominal painCOMPARISON: NoneTechnique: Helical CT [...]
[2022-08-14 10:37] LABS: Lymphocytes % 27.3 % (15.3-44.8); MCV 90.7 fL (80-100); MPV 8.4 fL (7.6-11.3); RBC Red Blood Cell Count 4.63 M/uL (3.86-4.86)
[2022-08-14 10:38] LABS: Protime INR 0.97
[2022-08-14] MEDS ORDERED: NA CHLORIDE 0.9% 500 ML ONE (10:39)
[2022-08-14 10:59] LABS: ALT/SGPT 27 U/L (13-56); AST/SGOT 19 U/L (15-37); Albumin 3.9 g/dL (3.4-5.0); Alkaline Phosphatase 55 U/L (45-117); BUN Blood Urea Nitrogen 21 mg/dL (7-18); Bicarbonate 27 mEq/L (21-32); Bilirubin Total 0.3 mg/dL (0.2-1.0); Creatine Phosphokinase 56 U/L (26-192); Glomerular Filtration Rate 95 ml/min (=/>90); Glucose Level 109 mg/dL (74-106); Lipase 52 U/L (13-75); Magnesium 1.9 mg/dL (1.6-2.4); NT PRO-BNP 74 pg/mL (<125); Potassium 4.2 mEq/L (3.5-5.1); Protein, Total 7.3 g/dL (6.4-8.2); Sodium Level 140 mEq/L (136-145); Troponin High Sensitivity 3.4 pg/mL (<58.9)
[2022-08-14 11:09] LABS: Bilirubin Direct < 0.1 mg/dL (0-0.2)
[2022-08-14] MEDS ORDERED: ASPIRIN 81 MG CHEWABLE TABLET ONE (11:50)
--- NOTE | 2022-08-14 12:02 | RAD REPORT ---
EXAM DESCRIPTION: US - Extrem Venous W Compress Dean - 08/14/2022 10:48 am CLINICAL HISTORY: Pain, swelling COMPARISON: None. TECHNIQUE: Real-time sonographic evaluation of the bilateral lower extremity deep venous systems was performed. FINDINGS: Normal compressibility, flow augmentation, phasic flow and spontaneous flow is identified in both the left and right lower extremity deep venous systems. No intraluminal filling defects seen. IMPRESSION: No DVT in either lower extremity.
--- NOTE | 2022-08-14 12:10 | EDPHYS ---
Physician Documentation [facility] Name: Fany Meza Age: 52 yrs Sex: Female : 1970 Arrival Date: 08/14/2022 Time: 10:08 Bed 13 Private MD: ROMAIN Physician Nigel Knight HPI: 08/14 10:21 This 52 yrs old Female presents to ER via Ambulatory with complaints of Leg stephen Swelling, Leg Pain. 10:21 The patient presents with pain, swelling, tenderness. The complaints affect the right stephen leg and left leg. Context: The problem was sustained at an unknown site, resulted from an unknown cause, the patient can fully bear weight, the patient is able to ambulate. Onset: The symptoms/episode began/occurred 2 day(s) ago. Modifying factors: The symptoms are alleviated by nothing. the symptoms are aggravated by nothing. Associated signs and symptoms: The patient has no apparent associated signs or symptoms. Treatment prior to arrival includes: no previous treatment. Severity of symptoms: At their worst the symptoms were mild, in the emergency department the symptoms are unchanged. The patient has not experienced similar symptoms in the past. 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 - Social history:: Smoking status: Patient reports the use of cigarette tobacco products, smokes one-half pack cigarettes per day. - Family history:: not pertinent. ROS: 10:21 Constitutional: Negative for fever, chills, and weight loss, Eyes: Negative for injury, stephen pain, redness, and discharge, ENT: Negative for injury, pain, and discharge, Neck: Negative for injury, pain, and swelling, Cardiovascular: Negative for chest pain, palpitations, and edema, Respiratory: Negative for shortness of breath, cough, wheezing, and pleuritic chest pain, Abdomen/GI: Negative for abdominal pain, nausea, vomiting, diarrhea, and constipation, Back: Negative for injury and pain, : Negative for injury, bleeding, discharge, and swelling, Skin: Negative for injury, rash, and discoloration, Neuro: Negative for headache, weakness, numbness, tingling, and seizure, Psych: Negative for depression, anxiety, suicide ideation, homicidal ideation, and hallucinations, Allergy/Immunology: Negative for hives, rash, and allergies, Endocrine: Negative for neck swelling, polydipsia, polyuria, polyphagia, and marked weight changes, Hematologic/Lymphatic: Negative for swollen nodes, abnormal bleeding, and unusual bruising. 10:21 MS/extremity: Positive for pain, swelling, of the right leg and left leg. Exam: 10:21 Constitutional: This is a well developed, well nourished patient who is awake, alert, stephen and in no acute distress. Head/Face: Normocephalic, atraumatic. Eyes: Pupils equal round and reactive to light, extra-ocular motions intact. Lids and lashes normal. Conjunctiva and sclera are non-icteric and not injected. Cornea within normal limits. Periorbital areas with no swelling, redness, or edema. ENT: Nares patent. No nasal discharge, no septal abnormalities noted. Tympanic membranes are normal and external auditory canals are clear. Oropharynx with no redness, swelling, or masses, exudates, or evidence of obstruction, uvula midline. Mucous membranes moist. Neck: Trachea midline, no thyromegaly or masses palpated, and no cervical lymphadenopathy. Supple, full range of motion without nuchal rigidity, or vertebral point tenderness. No Meningismus. Chest/axilla: Normal chest wall appearance and motion. Nontender with no deformity. No lesions are appreciated. Cardiovascular: Regular rate and rhythm with a normal S1 and S2. No gallops, murmurs, or rubs. Normal PMI, no JVD. No pulse deficits. Respiratory: Lungs have equal breath sounds bilaterally, clear to auscultation and percussion. No rales, rhonchi or wheezes noted. No increased work of breathing, no retractions or nasal flaring. Abdomen/GI: Soft, non-tender, with normal bowel sounds. No distension or tympany. No guarding or rebound. No evidence of tenderness throughout. Back: No spinal tenderness. No costovertebral tenderness. Full range of motion. Skin: Warm, dry with normal turgor. Normal color with no rashes, no lesions, and no evidence of cellulitis. MS/ Extremity: Pulses equal, no cyanosis. Neurovascular intact. Full, normal range of motion. Neuro: Awake and alert, GCS 15, oriented to person, place, time, and situation. Cranial nerves II-XII grossly intact. Motor strength 5/5 in all extremities. Sensory grossly intact. Cerebellar exam normal. Normal gait. Psych: Awake, alert, with orientation to person, place and time. Behavior, mood, and affect are within normal limits. 10:21 Musculoskeletal/extremity: Circulation is intact in all extremities. Sensation intact. Compartment Syndrome exam of affected extremity: is normal. Joints: All joints appear normal with full range of motion. Weight bearing: able to fully bear weight, able to jump, Tendon exam: specific tendon testing normal through active and passive range of motion DVT Exam: No signs of deep vein thrombosis. no pain, no swelling, no tenderness, negative Homans' sign noted on exam, no appreciated bluish discoloration, no erythema, no increased warmth. 11:37 ECG was reviewed by the Attending Physician. [facility] Vital Signs: 10:18 BP 147 / 93; Pulse 70; Resp 16; Temp 98.2; Pulse Ox 99% on R/A; Weight 79.38 kg; Height iw 5 ft. 4 in. ; Pain 5/10; 10:18 Body Mass Index 30.04 (79.38 kg, 162.56 cm) iw 10:18 Pain Scale: Adult iw MDM: 10:11 Patient medically screened. [facility] 10:23 Differential diagnosis: contusion, abrasion, tendonitis. Data reviewed: vital signs, [facility] nurses notes, lab test result(s), EKG, radiologic studies, plain films. Consideration of Admission/Observation Escalation of care including admission/observation considered. I considered the following discharge prescriptions or medication management in the emergency department Medications were administered in the Emergency Department. See MAR. Test considered but Not performed: CT: ct abd pelvis. Care significantly affected by the following chronic conditions: Hypertension, cervical ca, hep c. 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 08/14 10:13 Order name: Basic Metabolic Panel; Complete Time: 11:14 stephen 08/14 10:13 Order name: CBC with Diff; Complete Time: 11:14 [facility] 08/14 10:13 Order name: LFT's; Complete Time: 11:14 [facility] 08/14 10:13 Order name: Magnesium; Complete Time: 11:14 stephen 08/14 10:13 Order name: NT PRO-BNP; Complete Time: 11:14 stephen 08/14 10:13 Order name: PT-INR; Complete Time: 11:14 stephen 08/14 10:13 Order name: Troponin HS; Complete Time: 11:14 [facility] 08/14 10:13 Order name: Lipase; Complete Time: 11:14 [facility] 08/14 10:48 Order name: Creatine Phosphokinase; Complete Time: 11:14 EDMS 08/14 10:13 Order name: XRAY Chest (1 view) [facility] 08/14 10:13 Order name: US Extremity Venous W Compression Dean; Complete Time: 12:05 [facility] 08/14 10:13 Order name: EKG; Complete Time: 10:14 [facility] 08/14 10:13 Order name: Cardiac monitoring; Complete Time: 11:23 [facility] 08/14 10:13 Order name: EKG - Nurse/Tech; Complete Time: 11:23 [facility] 08/14 10:13 Order name: IV Saline Lock; Complete Time: 10:33 [facility] 08/14 10:13 Order name: Labs collected and sent; Complete Time: 10:33 [facility] 08/14 10:13 Order name: O2 Per Protocol; Complete Time: 10:33 [facility] 08/14 10:13 Order name: O2 Sat Monitoring; Complete Time: 10:33 [facility] EC:37 Rate is 64 beats/min. QRS Ralston is Normal. MD interval is normal. QRS interval is stephen normal. QT interval is normal. No Q waves. T waves are Normal. ST Segment is depressed in leads II, III, aVF. Clinical impression: NSR w/ Non-specific ST/T Changes. Interpreted by me. Reviewed by me. Administered Medications: 10:55 Drug: NS 0.9% IV 500 ml Route: IV; Rate: bolus; Site: right antecubital; ap3 12:48 Follow up: IV Status: Completed infusion ap3 11:47 Drug: Aspirin PO Chewable Tablet 162 mg Route: PO; ap3 12:48 Follow up: Response: No adverse reaction ap3 Disposition Summary: 08/14/22 12:09 Discharge Ordered Location: Home stephen Problem: new stephen Symptoms: have improved stephen Condition: Stable stephen Diagnosis - Edema, unspecified stephen - Essential (primary) hypertension stephen - Pain in leg, unspecified stephen Followup: stephen - With: Private Physician - When: 2 - 3 days - Reason: Recheck today's complaints, Continuance of care, Re-evaluation by your physician Followup: stephen - With: - When: 2 - 3 days - Reason: Recheck today's complaints, Re-evaluation by your physician Discharge Instructions: - Discharge Summary Sheet stephen - Edema stephen - Hypertension, Adult stephen - Hypertension, Adult, Wrms-iw-[id number] stephen - Edema, [id number]-sx-[id number] stephen - How to Take Your Blood Pressure, Qnsl-[id number]-[id number] stephen - Aspirin and Your Heart stephen - Managing Your Hypertension stephen - Peripheral Edema stephen Forms: - Medication Reconciliation Form stephen - Thank You Letter stephen - Antibiotic Education stephen - Prescription Opioid Use stephen Signatures: Dispatcher [employer] EDPA Nigel Knight MD MD cha Williams, Irene, RN RN iw Kimberlee Hudson RN RN ap3 Corrections: (The following items were deleted from the chart) 10:50 10:21 CREATINE PHOSPHOKINASE+C.LAB.BRZ ordered. EDPA EDMS
--- NOTE | 2022-08-14 12:10 | ER ---
Nurse's Notes [facility] Name: Fany Meza Age: 52 yrs Sex: Female : 1970 Arrival Date: 08/14/2022 Time: 10:08 Bed 13 Private MD: Diagnosis: Edema, unspecified;Essential (primary) hypertension;Pain in leg, unspecified Presentation: 08/14 10:18 Chief complaint: Patient states: pain to gerard thighs and calves X 2 days and her ankles iw were swollen yesterday. Coronavirus screen: At this time, the client does not indicate any symptoms associated with coronavirus-19. Ebola Screen: Patient negative for fever greater than or equal to 101.5 degrees Fahrenheit, and additional compatible Ebola Virus Disease symptoms Patient denies exposure to infectious person. Patient denies travel to an Ebola-affected area in the 21 days before illness onset. No symptoms or risks identified at this time. 10:18 Method Of Arrival: Ambulatory iw 10:20 Initial Sepsis Screen: Does the patient meet any 2 criteria? No. Patient's initial iw sepsis screen is negative. Does the patient have a suspected source of infection? No. Patient's initial sepsis screen is negative. Risk Assessment: Do you want to hurt yourself or someone else? Patient reports no desire to harm self or others. Onset of symptoms was August 12, 2022. 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 - Social history:: Smoking status: Patient reports the use of cigarette tobacco products, smokes one-half pack cigarettes per day. - Family history:: not pertinent. Screenin:44 [facility] ED Fall Risk Assessment (Adult) History of falling in the last 3 months, ap3 including since admission No falls in past 3 months (0 pts). Abuse screen: Denies threats or abuse. Nutritional screening: No deficits noted. Tuberculosis screening: No symptoms or risk factors identified. Assessment: 10:43 General: Appears in no apparent distress. Behavior is calm, cooperative. Pain: ap3 Complains of pain in left leg and right leg. Neuro: Level of Consciousness is awake, alert, obeys commands, Oriented to person, place, time, situation. Cardiovascular: Patient's skin is warm and dry. Respiratory: Airway is patent Respiratory effort is even, unlabored, Respiratory pattern is regular, symmetrical. Vital Signs: 10:18 BP 147 / 93; Pulse 70; Resp 16; Temp 98.2; Pulse Ox 99% on R/A; Weight 79.38 kg; Height iw 5 ft. 4 in. ; Pain 5/10; 10:18 Body Mass Index 30.04 (79.38 kg, 162.56 cm) iw 10:18 Pain Scale: Adult iw ED Course: 10:09 Patient arrived in ED. rg4 10:11 Nigel Knight MD is Attending Physician. stephen 10:17 Kimberlee Hudson, RN is Primary Nurse. ap3 10:20 Triage completed. iw 10:20 Arm band placed on. iw 10:33 Initial lab(s) drawn, by ia, sent to lab. Inserted saline lock: 20 gauge in right ap3 antecubital area, using aseptic technique. Blood collected. 10:41 Lipase Sent. ap3 10:44 Patient has correct armband on for positive identification. Bed in low position. Call ap3 light in reach. Side rails up X 1. quality assurance monitor on. Pulse ox on. NIBP on. Door closed. Noise minimized. Warm blanket given. 10:49 US Extremity Venous W Compression Gerard In Process Unspecified. EDMS 11:23 EKG done, by ED staff, reviewed by Nigel Knight MD. ap3 12:07 XRAY Chest (1 view) In Process Unspecified. EDMS 12:09 Dion Araujo MD is Referral Physician. stephen 12:48 No provider procedures requiring assistance completed. IV discontinued, intact, ap3 bleeding controlled, No redness/swelling at site. Pressure dressing applied. Administered Medications: 10:55 Drug: NS 0.9% IV 500 ml Route: IV; Rate: bolus; Site: right antecubital; ap3 12:48 Follow up: IV Status: Completed infusion ap3 11:47 Drug: Aspirin PO Chewable Tablet 162 mg Route: PO; ap3 12:48 Follow up: Response: No adverse reaction ap3 Medication: 12:48 VIS not applicable for this client. ap3 Outcome: 12:09 Discharge ordered by . stephen 12:48 Discharged to home ambulatory. ap3 12:48 Condition: good 12:48 Discharge instructions given to patient, Instructed on discharge instructions, follow up and referral plans. Demonstrated understanding of instructions, follow-up care. 12:49 Patient left the ED. ap3 Signatures: Dispatcher [employer] EDMS Nigel Knight MD MD cha Williams, Irene, RN Katerin Alicea rg4 Kimberlee Hudson RN RN ap3 Corrections: (The following items were deleted from the chart) 10:50 10:41 CREATINE PHOSPHOKINASE+C.LAB.BRZ drawn and sent. ap3 EDND
--- NOTE | 2022-08-14 12:38 | RAD REPORT ---
EXAM DESCRIPTION: RADChest Single View08/14/2022 12:05 pm CLINICAL HISTORY: CONGESTION COMPARISON: Chest Single View dated 04/23/2022; Chest Single View dated 04/15/2022; Chest Single View d ated 03/05/2022; Chest Single View dated 02/24/2022 TECHNIQUE: Portable AP view of the chest. FINDINGS: The lungs are clear. No pneumothorax or effusion. The cardiomediastinal contours are unrem arkable. IMPRESSION: No acute cardiopulmonary process.
[2022-08-14 12:53] VITALS: BP 147/93; TEMP 98.2; O2SAT 99
--- NOTE | 2022-08-15 07:11 | EKG ---
Test Date: 2022-08-14 Test Time: 11:20:15 Dobie Worker: ALP MEASUREMENT RESULTS: Intervals: Rate: 64 ID: [id number] QRSD: 78 QT: 412 QTc: 425 Jennings: P: 63 ID: [id number] QRS: 68 T: 9 INTERPRETIVE STATEMENTS: Normal sinus rhythm Normal ECG Compared to ECG 04/23/2022 14:56:45 ST (T wave) deviation no longer present Electronically Signed On 08-15-22 07:09:34 CDT by Rich Sprague
== END 2022-08-14 12:49 | disposition home or self-care (01) ==
LOC: ER 10:08
DX: R60.0 Localized edema (principal); I10 Essential (primary) hypertension; M79.605 Pain in left leg; M79.604 Pain in right leg; F17.210 Nicotine dependence, cigarettes, uncomplicated
CPT/HCPCS: 96361; 93005; 85025; 80048; 36415; 83735; 82550; 85610; 80076; 84484; 83690; 83880; 71045; 93970; 96360; 99285; J7040

== ENCOUNTER 2022-09-13 10:27 | Emergency (ER) | payer OTHER ==
--- OUTSIDE RECORDS SUMMARY | 2022-09-13 10:40 | XMS REPORT | Continuity of Care Document ---
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 pain or severe pain for up to 2 days .acute pain. Max Daily Amount: 4 tablets HYDROcodone 2021-0 1{tbl} Q6H Take 1 [facility] -acetaminop 6-21 06-[address] [facility] ([facility]PCARD) 00:00: 00:00 [facility]325 mg 00 :00 every 6 l per tablet (six) hours as needed for moderate pain or severe pain for up to 2 days .acute pain. Max Daily Amount: 4 tablets HYDROcodone 2021-0 2021- 1{tbl} Q6H Take 1 [facility] -acetaminop 6-21 06-[address] [facility] ([facility]NAPCARD) 00:00: 00:00 [facility]325 mg 00 :00 every 6 l per tablet (six) hours as needed for moderate pain or severe pain for up to 2 days .acute pain. Max Daily Amount: 4 tablets HYDROcodone 2021-0 1{tbl} Q6H Take 1 [facility] -acetaminop 6-21 06-[address] [facility] (SNAPCARD) 00:00: 00:00 [facility]325 mg 00 :00 every 6 l per tablet (six) hours as needed for moderate pain or severe pain for up to 2 days .acute pain. Max Daily Amount: 4 tablets HYDROcodone 2021-0 No 1{tbl} Q6H Take 1 [facility] -acetaminop 6-21 06-[address] [facility] ([facility]NAPCARD) 00:00: 00:00 [facility]325 mg 00 :00 every 6 l per tablet (six) hours as needed for moderate pain or severe pain for up to 2 days .acute pain. Max Daily Amount: 4 tablets HYDROcodone 2-0 2021- No 1{tbl} Q6H Take 1 [facility] -acetaminop 6-21 06-[address] [facility] ([facility]PCARD) 00:00: 00:00 [facility]325 mg 00 :00 every 6 l per tablet (six) hours as needed for moderate pain or severe pain for up to 2 days .acute pain. Max Daily Amount: 4 tablets HYDROcodone 2022-0 2021- No [id number] 1{tbl} Q6H Take 1 [facility] -acetaminop 6-21 06-[address] [facility] (SNAPCARD) 00:00: 00:00 [facility]325 mg 00 :00 every 6 l per tablet (six) hours as needed for moderate pain or severe pain for up to 2 days .acute pain. Max Daily Amount: 4 tablets HYDROcodone 2-0 2021- No [id number] 1{tbl} Q6H Take 1 [facility] -acetaminop 6-21 06-[address] [facility] (SNAPCARD) 00:00: 00:00 [facility]325 mg 00 :00 every 6 l per tablet (six) hours as needed for moderate pain or severe pain for up to 2 days .acute pain. Max Daily Amount: 4 tablets HYDROcodone 2-0 2021- No [id number] 1{tbl} Q6H Take 1 [facility] -acetaminop 6-21 06-[address] [facility] ([facility]NAPCARD) 00:00: 00:00 [facility]325 mg 00 :00 every 6 l per tablet (six) hours as needed for moderate pain or severe pain for up to 2 days .acute pain. Max Daily Amount: 4 tablets HYDROcodone 2-0 2021- No [id number] 1{tbl} Q6H Take 1 [facility] -acetaminop 6-21 06-[address] [facility] (SNAPCARD) 00:00: 00:00 [facility]325 mg 00 :00 every 6 l per tablet (six) hours as needed for moderate pain or severe pain for up to 2 days .acute pain. Max Daily Amount: 4 tablets HYDROcodone 2022-0 2021- No [id number] 1{tbl} Q6H Take 1 [facility] -acetaminop 6-21 06-[address] [facility] (SNAPCARD) 00:00: 00:00 [facility]325 mg 00 :00 every 6 l per tablet (six) hours as needed for moderate pain or severe pain for up to 2 days .acute pain. Max Daily Amount: 4 tablets HYDROcodone 2-0 2021- No [id number] 1{tbl} Q6H Take 1 [facility] -acetaminop 6-21 06-[address] [facility] (SNAPCARD) 00:00: 00:00 [facility]325 mg 00 :00 every 6 l per tablet (six) hours as needed for moderate pain or severe pain for up to 2 days .acute pain. Max Daily Amount: 4 tablets HYDROcodone 2021-0 2021- No [id number] 1{tbl} Q6H Take 1 [facility] -acetaminop 6-21 06-[address] [facility] (SNAPCARD) 00:00: 00:00 [facility]325 mg 00 :00 every 6 l per tablet (six) hours as needed for moderate pain or severe pain for up to 2 days .acute pain. Max Daily Amount: 4 tablets HYDROcodone 2021-0 2021- No 1{tbl} Q6H Take 1 [facility] -acetaminop 6-21 06-[address] [facility] (SNAPCARD) 00:00: 00:00 [facility]325 mg 00 :00 every 6 l per tablet (six) hours as needed for moderate pain or severe pain for up to 2 days .acute pain. Max Daily Amount: 4 tablets HYDROcodone 2021-0 2021- No [id number] 1{tbl} Q6H Take 1 [facility] -acetaminop 6-21 06-[address] [facility] (SNAPCARD) 00:00: 00:00 [facility]325 mg 00 :00 every 6 l per tablet (six) hours as needed for moderate pain or severe pain for up to 2 days .acute pain. Max Daily Amount: 4 tablets HYDROcodone 2021-0 2021- No [id number] 1{tbl} Q6H Take 1 [facility] -acetaminop 6-21 06-[address] [facility] (SNAPCARD) 00:00: 00:00 [facility]325 mg 00 :00 every 6 l per tablet (six) hours as needed for moderate pain or severe pain for up to 2 days .acute pain. Max Daily Amount: 4 tablets HYDROcodone 2021-0 2021- No 1{tbl} Q6H Take 1 [facility] -acetaminop 6-21 06-[address] [facility] (SNAPCARD) 00:00: 00:00 [facility]325 mg 00 :00 every 6 l per tablet (six) hours as needed for moderate pain or severe pain for up to 2 days .acute pain. Max Daily Amount: 4 tablets HYDROcodone 2022-0 2022- No [id number] 1{tbl} Q6H Take 1 [facility] -acetaminop 6-21 -[address] [facility] ([facility]NAPCARD) 00:00: 00:00 [facility]325 mg 00 :00 every 6 l per tablet (six) hours as needed for moderate pain or severe pain for up to 2 days .acute pain. Max Daily Amount: 4 tablets HYDROcodone 2022-0 2022- No [id number] 1{tbl} Q6H Take 1 [facility] -acetaminop 6-21 - tablet by [facility] (SNAPCARD) 00:00: 00:00 [facility]325 mg 00 :00 every 6 l [...] 00 :00 by mouth l daily. amLODIPine 2021-2- No 5mg QD Take 1 [facility] (NORVASC) 5 09-11- tablet (5 st mg tablet 00:00: 00:00 mg total) [facility] :00 by mouth l daily. amLODIPine 2021-0 2022- No 5mg QD Take 1 [facility] (NORVASC) 5 09-11- tablet (5 st mg tablet 00:00: 00:00 mg total) [facility] 00 :00 by mouth l daily. amLODIPine 2021- 2022- No 5mg QD Take 1 Meth [...] DAILY WITH MEALS meclizine 2021- No 25mg Q.[id number] Take 1 [facility] ([facility]ERT) 08-26 [id number] tablet (25 st 25 mg 00:00: 00:00 3D mg total) [facility] 00 :00 by mouth 3 l (three) times a day as needed for dizziness for up to 30 days. meclizine 2021- No 25mg Q.[id number] Take 1 [facility] ([facility]) 08-26 [id number] tablet (25 st 25 mg 00:00: 00:00 3D mg total) [facility] a tablet 00 :00 by mouth 3 l (three) times a day as needed for dizziness for up to 30 days. meclizine 2021-2021- No 25mg Q.[id number] Take 1 [facility] ([facility]) 08-26 [id number] tablet (25 st 25 mg 00:00: 00:00 3D mg total) [facility] a tablet 00 :00 by mouth 3 l (three) times a day as needed for dizziness for up to 30 days. meclizine 2021-2021- No 25mg Q.07812403 Take 1 [facility] ([facility]) 17 -10 [id number] tablet (25 st 25 mg 00:00: 00:00 3D mg total) [facility] a tablet 00 :00 by mouth 3 l (three) times a day as needed for dizziness for up to 30 days. meclizine 2021-0 202- No 25mg Q.[id number] Take 1 [facility] ([facility]) 08-26-10 [id number] tablet (25 st 25 mg 00:00: 00:00 3D mg total) [facility] a tablet 00 :00 by mouth 3 l (three) times a day as needed for dizziness for up to 30 days. meclizine 2021-0 2021- No 25mg Q.[id number] Take 1 [facility] ([facility]) 08-26-10 [id number] tablet (25 st 25 mg 00:00: 00:00 3D mg total) [facility] a tablet 00 :00 by mouth 3 l (three) times a day as needed for dizziness for up to 30 days. meclizine 0 2021- No 25mg Q.[id number] Take 1 [facility] ([facility]) 08-26-10 [id number] tablet (25 st 25 mg 00:00: 00:00 3D mg total) [facility] a tablet 00 :00 by mouth 3 l (three) times a day as needed for dizziness for up to 30 days. meclizine 2021-2021- No 25mg Q.[id number] Take 1 [facility] ([facility]) 08-26-10 [id number] tablet (25 st 25 mg 00:00: 00:00 3D mg total) [facility] tablet 00 :00 by mouth 3 l (three) times a day as needed for dizziness for up to 30 days. meclizine 2021-0 2022- No 25mg Q.[id number] Take 1 [facility] ([facility]ERT) 517 -10 [id number] tablet (25 st 25 mg 00:00: 00:00 3D mg total) [facility] a tablet 00 :00 by mouth 3 l (three) times a day as needed for dizziness for up to 30 days. meclizine 2021-0 2022- No 25mg Q.[id number] Take 1 [facility] ([facility]) 517 06-10 [id number] tablet (25 st 25 mg 00:00: 00:00 [...] a day for 60 days. doxycycline 2021-0 2- No 100mg Take 100 [...] l times a day. acetamin[place] 2021- [place] [id number] 1{tbl} Q6H Take 1-2 [facility] en-codeine 4-27 05-[address] (TYLENOL 00:00: 04:59 [facility] WITH 00 :00 every 6 l CODEINE #3) (six) 300-30 mg hours as per tablet needed for moderate pain for up to 5 [place] [id number] 1{tbl} Q6H Take 1-2 [facility]-codeine 4-27 05-[address] (TYLENOL 00:00: 04:59 [facility] WITH 00 :00 every 6 l CODEINE #3) (six) 300-30 mg hours as per tablet needed for moderate pain for up to 5 days .acute pain. acetaminoph 2021- No [id number] 1{tbl} Q6H Take 1-2 [facility] en-codeine 4-27 05-[address] (TYLENOL 00:00: 04:59 [facility] WITH 00 :00 every 6 l CODEINE #3) (six) 300-30 mg hours as per tablet needed for moderate pain for up to 5 days [place] [id number] 1{tbl} Q6H Take 1-2 [facility] en-codeine 4-27 05-[address] (TYLENOL 00:00: 04:59 [facility] WITH 00 :00 every 6 l CODEINE #3) (six) 300-30 mg hours as per tablet needed for moderate pain for up to 5 days .acute pain. acetaminoph No 1{tbl} Q6H Take 1-2 [facility] en-codeine - [...] No 1{tbl} Q6H Take 1-2 [facility] en-codeine 08-06-[address] (TYLENOL 00:00: 04:59 [facility] WITH 00 :00 every 6 l CODEINE #3) (six) 300-30 mg hours as per tablet needed for moderate pain for up to 5 days .acute pain. amoxicillin 2021- No [id number] 500mg Q.5D Take 1 [facility] (AMOXIL) 07-[address] 500 MG 00:00: 04:59 (500 mg [facility]osp[facility] tablet 00 :00 total) by l mouth 2 (two) times a day for 7 days. amoxicillin 2021- No [id number] 500mg Q.5D Take 1 [facility] ([facility]OXIL) 07-[address] 500 MG 00:00: 04:59 (500 mg [facility]osp[facility] tablet 00 :00 total) by l mouth 2 (two) times a day for 7 days. amoxicillin 2021- No [id number] 500mg Q.5D Take 1 [facility] (AMOXIL) 07-24-[address] 500 MG 00:00: 04:59 (500 mg [facility]osp[facility] tablet 00 :00 total) by l mouth 2 (two) times a day for 7 days. amoxicillin 2021- No [id number] 500mg Q.5D Take 1 [facility] ([facility]OXIL) 07-[address] 500 MG 00:00: 04:59 (500 mg [facility]osp[facility] tablet 00 :00 total) by l mouth 2 (two) times a day for 7 days. amoxicillin 2021- No [id number] 500mg Q.5D Take 1 [facility] (AMOXIL) 07-[address] 500 MG 00:00: 04:59 (500 mg [facility]osp[facility] tablet 00 :00 total) by l mouth 2 (two) times a day for 7 days. amoxicillin 2021- No [id number] 500mg Q.5D Take 1 [facility] ([facility]OXIL) 07-[address] 500 MG 00:00: 04:59 (500 mg [facility] tablet 00 :00 total) by l mouth 2 (two) times a day for 7 days. amoxicillin 2021- No [id number] 500mg Q.5D Take 1 [facility] ([facility]OXIL) 07-[address] 500 MG 00:00: 04:59 (500 mg [facility]osp[facility] tablet 00 :00 total) by l mouth 2 (two) times a day for 7 days. amoxicillin 2021- No [id number] 500mg Q.5D Take 1 [facility] (AMOXIL) 07-24 [...] times a day with meals. naproxen 2021-0 202- No 500mg Q.5D Take 1 [facility] (Naprosyn) -30 -[address] 500 MG 00:00: 00:00 (500 mg [facility]osp[facility] tablet 00 :00 total) by l mouth 2 (two) times a day with meals. ibuprofen 2021-0 2022- No 800mg Q6H Take 1 [facility] (ADVIL) 800 -31 07-[address] MG [...] hours for 30 days. amoxicillin 2021- No [id number] 500mg Q.5D Take 1 [facility] (AMOXIL) 06-[address] 500 MG 00:00: 04:59 (500 mg [facility]osp[facility] tablet 00 :00 total) by l mouth in the morning and 1 tablet (500 mg total) before bedtime. Do all this for 7 days. amoxicillin 2021- No [id number] 500mg Q.5D Take 1 [facility] (AMOXIL) 06-[address] 500 MG 00:00: 04:59 (500 mg [facility]osp[facility] tablet 00 :00 total) by l mouth in the morning and 1 tablet (500 mg total) before bedtime. Do all this for 7 days. amoxicillin 2021- No [id number] 500mg Q.5D Take 1 [facility] (AMOXIL) 06-[address] 500 MG 00:00: 04:59 (500 mg [facility]osp[facility] tablet 00 :00 total) by l mouth in the morning and 1 tablet (500 mg total) before bedtime. Do all this for 7 days. amoxicillin 2021- No [id number] 500mg Q.5D Take 1 [facility] (AMOXIL) 06-[address] 500 MG 00:00: 04:59 (500 mg [facility]osp[facility] tablet 00 :00 total) by l mouth in the morning and 1 tablet (500 mg total) before bedtime. Do all this for 7 days. amoxicillin 2021-2021- No [id number] 500mg Q.5D Take 1 [facility] (AMOXIL) 06-[address] 500 MG 00:00: 04:59 (500 mg [facility]osp[facility] tablet 00 :00 total) by l mouth in the morning and 1 tablet (500 mg total) before bedtime. Do all this for 7 days. amoxicillin 2021-0 2021- No [id number] 500mg Q.5D Take 1 [facility] (AMOXIL) 06-[address] 500 MG 00:00: 04:59 (500 mg [facility]osp[facility] tablet 00 :00 total) by l mouth in the morning and 1 tablet (500 mg total) before bedtime. Do all this for 7 days. amoxicillin 2021-2021- No [id number] 500mg Q.5D Take 1 [facility] ([facility]OXIL) 06-[address] 500 MG 00:00: 04:59 (500 mg [facility]osp[facility] tablet 00 :00 total) by l mouth in the morning and 1 tablet (500 mg total) before bedtime. Do all this for 7 days. amoxicillin 2021- No [id number] 500mg Q.5D Take 1 [facility] (AMOXIL) 06-18 [...] (two) times a day with meals. naproxen 0 2021- No 500mg Q.5D Take 1 [facility] [...] 2022-0 2022- No [facility] ([facility]) 2- st 2.5 mg 00:00: 00:00 Hospita [...] l amLODIPine 2022-0 2022- No [facility] ([facility]) 2- 04-05 st 2.5 mg 00:00: 00:00 [facility]ospita tablet 00 :00 l amLODIPine 2021-0 2021- No [facility] ([facility]) 2- 04-05 st 2.5 mg 00:00: 00:00 [facility]ospita tablet 00 :00 l amLODIPine 2021-0 2021- No [facility] ([facility]) 2- 04-05 st 2.5 mg 00:00: 00:00 [facility]ospita tablet 00 :00 l HYDROcodone 2021-0 2021- No [id number] 1{tbl} Q6H Take 1 [facility] -acetaminop -05-[address] [facility]) 00:00: 05:59 [facility] 5-325 mg 00 :00 every 6 l per tablet (six) hours as needed for moderate pain for up to 5 days .acute pain. Max Daily Amount: 4 tablets HYDROcodone 2021-0 2021- No [id number] 1{tbl} Q6H Take 1 [facility] -acetaminop -05-[address] [facility] (SNAPCARD) 00:00: 05:59 [facility] 5-325 mg 00 :00 every 6 l per tablet (six) hours as needed for moderate pain for up to 5 days .acute pain. Max Daily Amount: 4 tablets HYDROcodone 2021-0 2021- [place] [id number] 1{tbl} Q6H Take 1 [facility] -acetaminop -04 05- tablet by [facility] (SNAPCARD) 00:00: 05:59 [facility] 5-325 mg 00 :00 every 6 l per tablet (six) hours as needed for moderate pain for up to 5 days .acute pain. Max Daily Amount: 4 tablets HYDROcodone 2021-0 2021- No [id number] 1{tbl} Q6H Take 1 [facility] -acetaminop -04 05-[address] [facility] (SNAPCARD) 00:00: 05:59 [facility] 5-325 mg 00 :00 every 6 l per tablet (six) hours as needed for moderate pain for up to 5 days .acute pain. Max Daily Amount: 4 tablets HYDROcodone 2021-0 2021- No [id number] 1{tbl} Q6H Take 1 [facility] -acetaminop 05-[address] [facility] ([place]) 00:00: 05:59 [facility] 5-325 mg 00 :00 every 6 l per tablet (six) hours as needed for moderate pain for up to 5 days .acute pain. Max Daily Amount: 4 tablets HYDROcodone No 1{tbl} Q6H Take 1 [facility] -acetaminop 05-[address] [facility] ([place]) 00:00: 05:59 [facility] 5-325 mg [...] up to 15 days .acute pain. acetaminoph No 1{tbl} Q6H [...] times 5 days. All with food. ibuprofen 2022-0 2022- No 600mg Q6H Take 1 [facility] (ADVIL) 600 - 03-[address] MG tablet 00:00: 00:00 (600 mg [facility] 00 :00 total) by l mouth every 6 (six) hours as needed for mild pain for up to 30 doses. ibuprofen 2022-0 2022- No 600mg Q6H Take 1 Meth [...] pain for up to 30 doses. ibuprofen 2-0 2022- No 600mg Q6H Take 1 [facility] (ADVIL) 600 - 03-[address] MG tablet 00:00: 00:00 (600 mg [facility] 00 :00 total) by l mouth every 6 (six) hours as needed for mild pain for up to 30 doses. ibuprofen 2022-0 2022- No 600mg Q6H Take 1 [facility] (ADVIL) 600 - 03-[address] MG tablet 00:00: 00:00 (600 mg [facility] 00 :00 total) by l mouth every 6 (six) hours as needed for mild pain for up to 30 doses. ibuprofen 2022-0 2022- No 600mg Q6H Take 1 Meth [...] to 5 days [place] [id number] 50mg Q6H Take 1 [facility] (ULTRAM) 50 04-12 tablet (50 s t mg tablet 00:00: 00:00 mg total) [facility] 00 :00 by mouth l every 6 (six) hours as needed for moderate pain for up to 5 [place] [id number] 50mg Q6H Take 1 [facility] (ULTRAM) 50 04-12 tablet (50 s t mg tablet 00:00: 00:00 mg total) [facility] 00 :00 by mouth l every 6 (six) hours as needed for moderate pain for up to 5 [place] [id number] 50mg Q6H Take 1 [facility] (ULTRAM) [...] 2.5mg QD Take 1 [facility] (NORVASC) 1-10 - tablet st 2.5 mg 00:00: 00:00 (2.5 [...] 1 [facility] (LIORESAL) 9-24 tablet by [facility] 10 mg 00:00: mouth 2 tablet 00 times daily as needed (muscle spasms) STOP cyclobenza kasia (FLEXERIL) 10 mg tablet. baclofen 2020-0 Yes Neck pain 10mg Take 1 [facility] (LIORESAL) 9-24 tablet by [facility] 10 mg 00:00: mouth 2 tablet 00 times daily as needed (muscle spasms) STOP cyclobenza kasia (FLEXERIL) 10 mg tablet. baclofen 2020-0 Yes Neck pain 10mg Take 1 [facility] (LIORESAL) 9-24 tablet by [facility] 10 mg 00:00: mouth 2 tablet 00 times daily as needed (muscle spasms) STOP cyclobenza kasia (FLEXERIL) 10 mg tablet. baclofen 2020-0 Yes Neck pain 10mg Take 1 [facility] (LIORESAL) 9-24 tablet by [facility] 10 mg 00:00: mouth 2 tablet 00 times daily as needed (muscle spasms) STOP cyclobenza kasia (FLEXERIL) 10 mg tablet. baclofen 2020-0 Yes Neck pain 10mg Take 1 [facility] (LIORESAL) 9-24 tablet by [facility] 10 mg 00:00: mouth 2 tablet 00 times daily as needed (muscle spasms) STOP cyclobenza kasia (FLEXERIL) 10 mg tablet. baclofen 2020-0 Yes Neck pain 10mg Take 1 [facility] (LIORESAL) 9-24 tablet by [facility] 10 mg 00:00: mouth 2 tablet 00 times daily as needed (muscle spasms) STOP cyclobenza kasia (FLEXERIL) 10 mg tablet. baclofen 2020-0 Yes Neck pain 10mg Take 1 [facility] (LIORESAL) 9-24 tablet by [facility] 10 mg 00:00: mouth 2 tablet 00 times daily as needed (muscle spasms) STOP cyclobenza kasia (FLEXERIL) 10 mg tablet. baclofen 2020-0 Yes Neck pain 10mg Take 1 [facility] (LIORESAL) 9-24 tablet by [facility] 10 mg 00:00: mouth 2 tablet 00 times daily as needed (muscle spasms) STOP cyclobenza kasia (FLEXERIL) 10 mg tablet. baclofen 2020-0 Yes Neck pain 10mg Take 1 [facility] (LIORESAL) 9-24 tablet by [facility] 10 mg 00:00: mouth 2 tablet 00 times daily as needed (muscle spasms) STOP cyclobenza kasia (FLEXERIL) 10 mg tablet. baclofen 2020-0 Yes Neck pain 10mg Take 1 [facility] (LIORESAL) 9-24 tablet by [facility] 10 mg 00:00: mouth 2 tablet [...] 2020-0 Yes Neck pain 25mg Take 1 Tmioteo hyman (ELAVIL) 9-03 tablet by [facility] 25 mg 00:00: mouth at tablet 00 bedtime nightly. amitriptyli 2020-0 Yes Neck pain 25mg Take 1 Tim[facility] ne (ELAVIL) 9-03 tablet by [facility] 25 mg 00:00: mouth at tablet 00 bedtime nightly. varenicline 2019-0 Yes Encounter Start Timoteo (CHANTIX) [...] 1 [facility] azole-trime 9-24 tablet by [facility] thoprim 08:09: mouth 2 (BACTRIM 11 times DS) 800-160 daily. mg per tablet MULTIVITAMI 2019-0 Yes Take by Tom [facility] N (DAILY 9-24 mouth. Health VITAMIN OR) 08:09: 11 sulfamethox 2019-0 Yes 1{tbl} Q.5D Take 1 [facility] azole-trime 9-24 tablet by [facility] thoprim 08:09: mouth 2 (BACTRIM 11 times DS) 800-160 daily. mg per tablet MULTIVITAMI 2019-0 Yes Take by Tom [facility] N (DAILY 9-24 mouth. Health VITAMIN OR) 08:09: 11 sulfamethox 2019-0 Yes 1{tbl} Q.5D Take 1 [facility] azole-trime 9-24 tablet by [facility] thoprim 08:09: mouth 2 (BACTRIM 11 times DS) 800-160 daily. mg per tablet MULTIVITAMI 2019-0 Yes Take by [facility] N (DAILY 9-24 mouth. Health VITAMIN OR) 08:09: 11 sulfamethox 2019-0 Yes 1{tbl} Q.5D Take 1 [facility] azole-trime 9-24 tablet by [facility] thoprim 08:09: mouth 2 (BACTRIM 11 times DS) 800-160 daily. mg per tablet MULTIVITAMI 2019-0 Yes Take by [facility] N (DAILY 9-24 mouth. Health VITAMIN OR) 08:09: 11 sulfamethox 2019-0 Yes 1{tbl} Q.5D Take 1 [facility] azole-trime 9-24 tablet by [facility] thoprim 08:09: mouth 2 (BACTRIM 11 times DS) 800-160 daily. mg per tablet MULTIVITAMI 2019-0 Yes Take by [facility] N (DAILY 9-24 mouth. Health VITAMIN OR) 08:09: 11 sulfamethox 2019-0 Yes 1{tbl} Q.5D Take 1 [facility] azole-trime 9-24 tablet by [facility] thoprim 08:09: mouth 2 (BACTRIM 11 times DS) 800-160 daily. mg per tablet MULTIVITAMI 2019-0 Yes Take by [facility] N (DAILY 9-24 mouth. Health VITAMIN OR) 08:09: 11 sulfamethox 2019-0 Yes 1{tbl} Q.5D Take 1 [facility] azole-trime 9-24 tablet by [facility] thoprim 08:09: mouth 2 (BACTRIM 11 times DS) 800-160 daily. mg per tablet MULTIVITAMI 2019-0 Yes Take by [facility] N (DAILY 9-24 mouth. Health VITAMIN OR) 08:09: 11 sulfamethox 2019-0 Yes 1{tbl} Q.5D Take 1 [facility] azole-trime 9-24 tablet by [facility] thoprim 08:09: mouth 2 (BACTRIM [...] FLUCELVAX QUAD 2021-02-[address] 00:00:00 [facility] FLUCELVAX QUAD 2021-02-[address] 00:00:00 [facility] FLUCELVAX QUAD 2021-02-[address] 00:00:00 [facility] FLUCELVAX QUAD 2021-02-[address] 00:00:00 [facility] FLUCELVAX QUAD 2021-02-[address] 00:00:00 [facility] FLUCELVAX QUAD 2021-02-[address] 00:00:00 [facility] FLUCELVAX QUAD 2021-02-[address] 00:00:00 [facility] FLUCELVAX QUAD 2021-02-[address] 00:00:00 [facility] FLUCELVAX QUAD 2021-02-[address] 00:00:00 [facility] FLUCELVAX QUAD 2021-02-[address] 00:00:00 [facility] PFIZER COVID-19 MRNA 2020-08-05 Completed [facility] VACCINATION 00:00:00 [facility] PFIZER COVID-19 MRNA 2020-08-05 Completed [facility] VACCINATION 00:00:00 [facility] PFIZER COVID-19 MRNA 2020-08-05 Completed [facility] VACCINATION 00:00:00 [facility] PFIZER COVID-19 MRNA 2020-08-05 Completed [facility] VACCINATION 00:00:00 [facility] PFIZER COVID-19 MRNA 2020-08-05 Completed [facility] VACCINATION 00:00:00 [facility] PFIZER COVID-19 MRNA 2020-08-05 Completed [facility] VACCINATION 00:00:00 [facility] PFIZER COVID-19 MRNA 2020-08-05 Completed [facility] VACCINATION 00:00:00 [facility] PFIZER COVID-19 MRNA 2020-08-05 Completed [facility] VACCINATION 00:00:00 [facility] PFIZER COVID-19 MRNA 2020-08-05 Completed [facility] VACCINATION 00:00:00 [facility] PFIZER COVID-19 MRNA 2020-08-05 Completed [facility] VACCINATION 00:00:00 [facility] PFIZER COVID-19 MRNA 2020-07-08 Completed [facility] VACCINATION 00:00:00 [facility] PFIZER COVID-19 MRNA 2020-07-08 Completed [facility] VACCINATION 00:00:00 [facility] PFIZER COVID-19 MRNA 2020-07-08 Completed [facility] VACCINATION 00:00:00 [facility] PFIZER COVID-19 MRNA 2020-07-08 Completed [facility] VACCINATION 00:00:00 [facility] PFIZER COVID-19 MRNA 2020-07-08 Completed [facility] VACCINATION 00:00:00 [facility] PFIZER COVID-19 MRNA 2020-07-08 Completed [facility] VACCINATION 00:00:00 [facility] PFIZER COVID-19 MRNA 2020-07-08 Completed [facility] VACCINATION 00:00:00 [facility] PFIZER COVID-19 MRNA 2020-07-08 Completed [facility] VACCINATION 00:00:00 [facility] PFIZER COVID-19 MRNA 2020-07-08 Completed [facility] VACCINATION 00:00:00 [facility] PFIZER COVID-19 MRNA 2020-07-08 Completed [facility] VACCINATION 00:00:00 [facility] Influenza, 2020-03-12 Completed [facility] Vaccine<FLUCELVAX>(M 00:00:00 ulti-Dose) Tdap (Tetanus 2020-03-12 Completed [facility] Toxoid, Reduced 00:00:00 Diphtheria Toxoid And Acellular Pertussis, Absorbed) Influenza, 2020-03-12 Completed [facility] Vaccine<FLUCELVAX>(M 00:00:00 ulti-Dose) Tdap (Tetanus 2020-03-12 Completed [facility] Toxoid, Reduced 00:00:00 Diphtheria Toxoid And [...] Vaccine<FLUCELVAX>(M 00:00:00 ulti-Dose) Tdap (Tetanus 2020-03-12 Completed [facility] Toxoid, Reduced 00:00:00 Diphtheria Toxoid And Acellular Pertussis, Absorbed) Influenza, 2020-03-12 Completed [facility] Vaccine<FLUCELVAX>(M 00:00:00 ulti-Dose) Tdap (Tetanus 2020-03-12 Completed [facility] th Toxoid, Reduced 00:00:00 Diphtheria Toxoid And Acellular Pertussis, Absorbed) Vital Signs Vital Name Observation Time Observation Value Comments Source Systolic blood 2022-02-20 01:13:29 129 mm[Hg] Method [facility] pressure Diastolic blood 2022-02-20 01:13:29 67 mm[Hg] [facility] pressure Heart rate 2022-02-20 01:13:29 60 /min [facility] Respiratory rate 2022-02-20 01:13:29 18 /min [facility] Oxygen saturation in 2022-02-20 01:13:29 96 /min [facility] Arterial blood by Pulse oximetry Body height 2022-02-19 20:30:00 162.6 cm [facility] Body weight 2022-02-19 20:30:00 79.379 kg [facility] BMI 2022-02-19 20:30:00 30.04 kg/m2 [facility] Body temperature 2022-02-19 20:29:09 36.61 Nydia [facility] pulse rate 2021-12-16 13:21:49 87 /min [facility], 2021-12-16 13:21:49 67 mm[Hg] [facility] blood pressure, 2021-12-16 13:21:49 132 mm[Hg] [facility] systolic Health pulse rate 2020-11-25 14:31:56 70 /[facility], 2020-11-25 14:31:56 74 mm[Hg] [facility] diastolic Health blood pressure, 2020-11-25 14:31:56 113 mm[Hg] [facility] pulse rate 2020-11-25 13:39:38 70 /[facility], 2020-11-25 13:39:38 74 mm[Hg] [facility] blood pressure, 2020-11-25 13:39:38 113 mm[Hg] [facility] Procedures Procedure Date / Time Performing Source Performed Clinician CT CHEST WO CONTRAST ABDOMEN WO 2022-02-20 Cristóbal Ovalle CONTRAST PELVIS WO CONTRAST 01:47:08 [facility] ECG ED PRELIMINARY INTERPRETATION 2022-02-20 Cristóbal Ovalle 01:34:30 [facility] CBC WITH PLATELET AND DIFFERENTIAL 2022-02-19 Pa Manning [facility] 21:40:00 Hospital COMPREHENSIVE METABOLIC PANEL 2022-02-19 Alee Manning thodist 21:40:00 Hospital HCG QUALITATIVE, SERUM SCREEN 2022-02-19 Alee Manning [facility] 21:40:00 Hospital ESTIMATED GFR 2022-02-19 Alee Manning [facility] 21:40:00 Hospital ECG 12-LEAD 2022-02-19 Alee Manning [facility] 20:46:22 Hospital URINE CULTURE 2022-02-19 Alee Manning [facility] 20:34:00 Hospital URINALYSIS SCREEN AND MICROSCOPY, 2022-02-19 Eulalio Manningist WITH REFLEX TO CULTURE 20:34:00 Hospital HEPATITIS B SURFACE ANTIGEN 2022-02-05 Eddie Farris Meth odist 15:30:00 Hospital HEPATITIS C ANTIBODY 2022-02-05 Eddie Farris 15:30:00 [facility] HIV 1/2 ANTIGEN/ANTIBODY, FOURTH 2022-02-05 Eddie Farris GENERATION, WITH REFLEXES 15:30:00 Hospit al HSV TYPE 1/2 COMBINED AB, IGM 2022-02-05 Eddie Farris thodist 15:30:00 Hospital RPR WITH REFLEX TO TITER 2022-02-[address] 15:30:00 Hospital HEPATITIS C VIRUS (HCV), 2022-02-[address] QUANTITATIVE PCR 15:30:00 [facility] HIV 1/2 ANTIGEN/ANTIBODY, FOURTH 2022-02-05 Eddie Farris GENERATION, WITH REFLEXES 15:30:00 Hospit al SURGICAL PATHOLOGY REQUEST 2021-12-26 Esthela Small Me [facility]odist 18:06:00 Hospital COLONOSCOPY 2021-12-26 Esthela Small [facility] 15:44:00 [facility] ESOPHAGOGASTRODUODENOSCOPY (EGD) 2021-12-26 Esthela Small [facility] 15:44:00 Hospital COVID-19 QUALITATIVE RT-PCR 2021-12-24 Esthela Small M ethodist 12:41:00 Hospital THINPREP TIS AND HPV MRNA E6/E7 2021-12-18 Eddie Farris 18:34:00 [facility] ECG 12-LEAD 2021-11-28 Keith Carroll 15:26:34 [facility] TROPONIN T 2021-11-07 Zeyad Cohen 20:01:00 [facility] COVID-19 QUALITATIVE RT-PCR 2021-11-07 Zeyad Cohen odist 19:09:00 [facility] COVID-19 OMICRON VARIANT 2021-11-[address] QUALITATIVE RT-PCR 19:09:00 [facility] XR CHEST 2 VW 2021-11-07 Zeyad Cohen 18:51:38 [facility] ECG ED PRELIMINARY INTERPRETATION 2021-11-07 Karo Cohen 18:50:27 [facility] COMPREHENSIVE METABOLIC PANEL 2021-11-07 Zeyad Cohen Ne thodist 18:03:00 [facility] TROPONIN T 2021-11-07 Zeyad Cohen 18:03:00 [facility] CBC WITH PLATELET AND DIFFERENTIAL 2021-11-07 Ed Cohen 18:03:00 [facility] HCG QUALITATIVE, SERUM SCREEN 2021-11-07 Zeyad Cohen Ne thodist 18:03:00 [facility] ESTIMATED GFR 2021-11-07 Zeyad Cohen 18:03:00 [facility] ECG 12-LEAD 2021-11-07 Oghogho, Eyitemi Evangel[facility] 17:57:16 [facility] FL UGI W OR WO KUB 2021-11-03 Esthela Smallist 15:16:30 [facility] HEPATITIS C VIRUS (HCV), 2021-11-03 Esthela Small odist QUANTITATIVE PCR 13:52:00 Hospital HEPATIC FUNCTION PANEL 2021-11-03 Esthela Small Method ist 13:52:00 [facility] XR CHEST 2 VW 2021-10-15 José Rider 02:52:42 [facility] COMPREHENSIVE METABOLIC PANEL 2021-10-15 Mario Maher Me thodist 01:15:00 [facility] TROPONIN T 2021-10-15 Mario Maherist 01:15:00 [facility] B NATRIURETIC PEPTIDE 2021-10-15 Mario Maher 01:15:00 [facility] CBC WITH PLATELET [...] Hospital URINE CULTURE 2021-10-12 Rajinder Ordoñez 15:17:00 [facility] URINALYSIS SCREEN AND MICROSCOPY, 2021-10-12 Arslan Ordoñez WITH REFLEX TO CULTURE 15:17:00 [facility] HCG QUALITATIVE, URINE SCREEN 2021-10-12 Rajinder Ordoñez 15:17:00 [facility] ECG 12-LEAD 2021-10-12 Rajinder Ordoñez 14:48:50 [facility] [place] AN ELECTIVE SUPRAGLOTTIC AIRWAY 2021-09-30 Ruddy Marie 12:10:00 Hospital DECOMPRESSION, ULNAR NERVE 2021-09-30 Rebecca Brownlee 12:06:00 [facility] COVID-19 QUALITATIVE RT-PCR 2021-09-26 Dulce Maria Pierre 14:23:00 [facility] PROTHROMBIN TIME WITH INR 2021-09-26 Antonio Pierre ist 14:23:00 [facility] PARTIAL THROMBOPLASTIN TIME (PTT) 2021-09-26 Keith Pierre 14:23:00 [facility] COMPREHENSIVE METABOLIC PANEL 2021-09-26 Gabby Me thodist 14:23:00 [facility] ESTIMATED GFR 2021-09-26 Rebecca Brownlee 14:23:00 [facility] HEMOGLOBIN A1C 2021-09-26 Rebecca Brownlee 14:23:00 [facility] CBC WITH PLATELET AND DIFFERENTIAL 2021-09-19 Lexie Esparza 07:10:00 Hospital THYROID STIMULATING HORMONE 2021-09-19 Peggy Esparza 07:10:00 Hospital CBC WITH PLATELET AND DIFFERENTIAL 2021-09-19 Erica Esparzaist 07:10:00 Hospital XR ELBOW 3+ VW LEFT 2021-09-10 Rebecca Brownlee 15:28:27 [facility] [address] ANGIOGRAM NECK W WO CONTRAST 2021-08-27 Brenda Retana 00:01:[address] [facility] CT ANGIOGRAM HEAD W WO CONTRAST 2021-08-27 Brenda Retana 00:00:50 [facility] CT HEAD WO CONTRAST 2021-08-26 Brenda Retana 23:42:36 [facility] ECG ED PRELIMINARY INTERPRETATION 2021-08-26 Brenda Retana 23:22:45 [facility] CBC WITH PLATELET AND DIFFERENTIAL 2021-08-26 Willie Retana 21:57:00 [facility] COMPREHENSIVE METABOLIC PANEL 2021-08-26 Brenda Retana Me thodist 21:57:00 [facility] TROPONIN T 2021-08-26 Brenda Retana 21:57:00 [facility] B NATRIURETIC PEPTIDE 2021-08-26 Brenda Retana 21:57:00 [facility] HCG QUALITATIVE, SERUM SCREEN 2021-08-26 Brenda Retana Me [facility]odist 21:57:00 [facility] ESTIMATED GFR 2021-08-26 Brenda Retana [facility] 21:57:00 [facility] ECG 12-LEAD 2021-08-26 Brenda Retana [facility] 21:42:16 [facility] URINE CULTURE 2021-08-06 Myles Martin [facility] 22:27:00 [facility] URINALYSIS SCREEN AND MICROSCOPY, 2021-08-06 Myles Martin Siist WITH REFLEX TO CULTURE 22:27:00 Hospital XR CHEST 2 VW 2021-08-06 Myles Martin [facility] 20:36:00 Hospital INFLUENZA ANTIGEN 2021-08-06 Susie Melton [facility] 20:10:00 [facility] RESPIRATORY PATHOGEN PANEL WITH 2021-08-06 Susie Melton COVID-19 RT-PCR 20:10:00 [facility] ECG ED PRELIMINARY INTERPRETATION 2021-08-06 Myles Martin Si [facility] 20:08:02 [facility] COMPREHENSIVE METABOLIC PANEL 2021-08-06 Susie Melton thodist 20:05:00 [facility] CBC WITH PLATELET AND DIFFERENTIAL 2021-08-06 Montserrat Melton [facility] 20:05:00 [facility] TROPONIN T 2021-08-06 Susie Melton [facility] 20:05:00 [facility] LIPASE LEVEL 2021-08-06 Susie Melton [facility] 20:05:00 [facility] ESTIMATED GFR 2021-08-06 Susie Melton [facility] 20:05:00 [facility] ECG 12-LEAD 2021-08-06 Susie Melton [facility] 19:55:29 [facility] TROPONIN T 2021-08-01 Brenda Retana [facility] 03:32:00 [facility] ECG ED PRELIMINARY INTERPRETATION 2021-08-01 Nelson Villagran i [facility] 02:37:45 [facility] CBC WITH PLATELET AND DIFFERENTIAL 2021-08-01 Willie Retana [facility] 00:35:00 [facility] COMPREHENSIVE METABOLIC PANEL 2021-08-01 Brenda Retana Me [facility]odist 00:35:00 [facility] TROPONIN T 2021-08-01 Brenda Retana [facility] 00:35:00 [facility] B NATRIURETIC PEPTIDE 2021-08-01 Brenda Retana 00:35:00 [facility] ESTIMATED GFR 2021-08-01 Brenda Retana 00:35:00 [facility] ECG 12-LEAD 2021-08-01 Brenda Retana 00:23:19 [facility] TROPONIN T 2021-07-30 Jaida Sales 21:35:00 Hospital ECG ED PRELIMINARY INTERPRETATION 2021-07-30 Myles Martin Siist 19:53:48 Hospital XR CHEST 2 VW 2021-07-30 Myles Martin [facility] 19:37:56 Hospital COMPREHENSIVE METABOLIC PANEL 2021-07-30 Jaida Sales 18:40:00 Hospital CBC WITH PLATELET AND DIFFERENTIAL 2021-07-30 Jaida Sales 18:40:00 Hospital TROPONIN T 2021-07-30 Jaida Sales 18:40:00 Hospital B NATRIURETIC PEPTIDE 2021-07-[address] 18:40:00 Hospital ESTIMATED GFR 2021-07-30 Jaida Sales 18:40:00 Hospital ECG 12-LEAD 2021-07-30 Jaida Sales 18:33:57 Hospital MAMMO BREAST SCREEN TOMOSYNTHESIS 2021-07-28 Shell Vargas BILATERAL 14:20:00 [facility] ECG ED PRELIMINARY INTERPRETATION 2021-07-01 Nelson Villagran i [facility] 00:04:28 Hospital TROPONIN T 2021-06-30 Mario Maher 23:09:00 [facility] RESPIRATORY PATHOGEN PANEL WITH 2021-06-30 Mario aMher COVID-19 RT-PCR 21:09:00 [facility] XR [...] Hospital POC URINALYSIS DIPSTICK 2021-06-16 Eddie Farris Methodis t 18:20:00 Hospital THINPREP TIS PAP AND HPV MRNA 2021-06-16 Eddie Farris Me thodist E6/E7 REFLEX HPV 16,18/45 18:17:00 Hospit al URINALYSIS, COMPLETE, WITH REFLEX 2021-06-16 Eddie Farrisist TO CULTURE 17:55:00 Hospital XR SHOULDER 2+ VW RIGHT 2021-06-02 Roger Ling t 17:52:26 [facility] MRI LUMBAR SPINE WO CONTRAST 2021-05-09 Shell [...] Hospital COMPREHENSIVE METABOLIC PANEL 2021-04-12 Shine Lui Ne thodist 22:56:00 Hospital LIPASE LEVEL 2021-04-12 Shine [...] ED PRELIMINARY INTERPRETATION 2021-04-12 Shine Lui 21:47:56 [facility] Plan of Care Planned Activity Planned Date Details Comments Source Future Scheduled 2024-09-11 [facility]:00 malignant neoplasm of cervix (procedure) [code = 856063542] Future Scheduled 2024-09-11 [facility] 00:00:00 malignant neoplasm of cervix (procedure) [code = 958751209] Future Scheduled 2024-09-11 [facility] 00:00:00 malignant neoplasm of cervix (procedure) [code = 370678383] Future Scheduled 2024-09-11 [facility] 00:00:00 malignant neoplasm of cervix (procedure) [code = 483010194] Future Scheduled 2024-09-11 [facility] 00:00:00 malignant neoplasm of cervix (procedure) [code = 575147337] Future Scheduled 2024-09-11 [facility] 00:00:00 malignant neoplasm of cervix (procedure) [code = 737246908] Future Scheduled 2024-09-11 [facility] 00:00:00 malignant neoplasm of cervix (procedure) [code = 818998704] Future Scheduled 2024-09-11 [facility] 00:00:00 malignant neoplasm of cervix (procedure) [code = 622994150] Future Scheduled 2024-09-11 [facility] 00:00:00 malignant neoplasm of cervix (procedure) [code = 812923950] Future Scheduled 2024-09-11 [facility] 00:00:00 malignant neoplasm of cervix (procedure) [code = 427285781] Future Scheduled 2024-09-11 [facility] 00:00:00 malignant neoplasm of cervix (procedure) [code = 581209481] Future Scheduled 2024-09-11 [facility] 00:00:00 malignant neoplasm of cervix (procedure) [code = 363482855] Future Scheduled 2024-09-11 [facility] 00:00:00 malignant neoplasm of cervix (procedure) [code = 057189676] Future Scheduled 2024-09-11 [facility] 00:00:00 malignant neoplasm of cervix (procedure) [code = 437349823] Future Scheduled 2024-09-11 [facility] 00:00:00 malignant neoplasm of cervix (procedure) [code = 464802934] Future Scheduled 2024-09-11 [facility] 00:00:00 malignant neoplasm of cervix (procedure) [code = 720439794] Future Scheduled 2024-09-11 [facility] 00:00:00 malignant neoplasm of cervix (procedure) [code = 934750447] Future Scheduled 2024-09-11 [facility] 00:00:00 malignant neoplasm of cervix (procedure) [code = 488394431] Future Scheduled 2024-09-11 [facility] 00:00:00 malignant neoplasm of cervix (procedure) [code = 226621924] Future Scheduled 2024-09-11 [facility] 00:00:00 malignant neoplasm of cervix (procedure) [code = 025501778] Future Scheduled 2023-01-10 [facility] Influ[facility]al [facility] 00:00:00 (>/= 19 yrs) [code = IMM Influenza Seasonal (>/= 19 yrs)] Future Scheduled 2023-01-10 [facility] Influenza [facility]al [facility] 00:00:00 (>/= 19 yrs) [code = IMM Influenza Seasonal (>/= 19 yrs)] Future Scheduled 2022-09-11 [facility] 08:52:14 (1 of 3 - 3-dose series) [code = HEPATITIS B VACCINES (1 of 3 - 3-dose series)] Future Scheduled 2022-09-11 Pneumococcal Vaccine: [facility] Test 08:52:14 Pediatrics (0 to 5 Years) and At-Risk Patients (6 to 64 Years) (1 - PCV) [code = Pneumococcal Vaccine: Pediatrics (0 to 5 Years) and At-Risk Patients (6 to 64 Years) (1 - PCV)] Future Scheduled 2022-09-11 COLONOSCOPY SCREENING [facility] Test 08:52:14 [code = COLONOSCOPY SCREENING] Future Scheduled 2022-09-11 SHINGLES VACCINES (1 Met [facility] Test 08:52:14 of 2) [code = SHINGLES VACCINES (1 of 2)] Future Scheduled 2022-09-11 COVID-19 VACCINE (3 - [facility] Test 08:52:14 Booster for Pfizer series) [code = COVID-19 VACCINE (3 - Booster for Pfizer series)] Future Scheduled 2022-09-11 BREAST CANCER [facility] Test 08:52:14 SCREENING [code = BREAST CANCER SCREENING] Future Scheduled 2022-09-11 INFLUENZA VACCINE Method [facility] Test 08:52:14 [code = INFLUENZA VACCINE] Future Scheduled 2022-09-11 Screening for [facility] Test 08:52:14 malignant neoplasm of cervix (procedure) [code = 143344127] Future Scheduled 2022-08-06 HEPATITIS B VACCINES Met [facility] Test 21:07:15 (1 of 3 - 3-dose series) [code = HEPATITIS B VACCINES (1 of 3 - 3-dose series)] Future Scheduled 2022-08-06 Pneumococcal Vaccine: [facility] Test 21:07:15 Pediatrics (0 to 5 Years) and At-Risk Patients (6 to 64 Years) (1 - PCV) [code = Pneumococcal Vaccine: Pediatrics (0 to 5 Years) and At-Risk Patients (6 to 64 Years) (1 - PCV)] Future Scheduled 2022-08-06 COLONOSCOPY SCREENING [facility] Test 21:07:15 [code = COLONOSCOPY SCREENING] Future Scheduled 2022-08-06 SHINGLES VACCINES (1 Met [facility] Test 21:07:15 of 2) [code = SHINGLES VACCINES (1 of 2)] Future Scheduled 2022-08-06 COVID-19 VACCINE (3 - [facility] Test 21:07:15 Booster for Pfizer series) [code = COVID-19 VACCINE (3 - Booster for Pfizer series)] Future Scheduled 2022-08-06 BREAST CANCER [facility] Test 21:07:15 SCREENING [code = BREAST CANCER SCREENING] Future Scheduled 2022-08-06 INFLUENZA VACCINE Method [facility] Test 21:07:15 [code = INFLUENZA VACCINE] Future Scheduled 2022-08-06 Screening for [facility] Test 21:07:15 malignant neoplasm of cervix (procedure) [code = 778363758] Future Scheduled 2022-06-22 HEPATITIS B VACCINES Met [facility] Test 14:13:36 (1 of 3 - 3-dose series) [code = HEPATITIS B VACCINES (1 of 3 - 3-dose series)] Future Scheduled 2022-06-22 Pneumococcal Vaccine: [facility] Test 14:13:36 Pediatrics (0 to 5 Years) and At-Risk Patients (6 to 64 Years) (1 - PCV) [code = Pneumococcal Vaccine: Pediatrics (0 to 5 Years) and At-Risk Patients (6 to 64 Years) (1 - PCV)] Future Scheduled 2022-06-22 COLONOSCOPY SCREENING [facility] Test 14:13:36 [code = COLONOSCOPY SCREENING] Future Scheduled 2022-06-22 SHINGLES VACCINES (1 Met [facility] Test 14:13:36 of 2) [code = SHINGLES VACCINES (1 of 2)] Future Scheduled 2022-06-22 COVID-19 VACCINE (3 - [facility] Test 14:13:36 Booster for Pfizer series) [code = COVID-19 VACCINE (3 - Booster for Pfizer series)] Future Scheduled 2022-06-22 INFLUENZA VACCINE Method [facility] Test 14:13:36 [code = INFLUENZA VACCINE] Future Scheduled 2022-06-22 BREAST CANCER [facility] Test 14:13:36 SCREENING [code = BREAST CANCER SCREENING] Future Scheduled 2022-06-22 Screening for [facility] Test 14:13:36 malignant neoplasm of cervix (procedure) [code = 628563499] Future Scheduled 2022 HEPATITIS B VACCINES Met [facility] Test 13:45:15 (1 of 3 - 3-dose series) [code = HEPATITIS B VACCINES (1 of 3 - 3-dose series)] Future Scheduled 2022 Pneumococcal Vaccine: [facility] Test 13:45:15 Pediatrics (0 to 5 Years) and At-Risk Patients (6 to 64 Years) (1 - PCV) [code = Pneumococcal Vaccine: Pediatrics (0 to 5 Years) and At-Risk Patients (6 to 64 Years) (1 - PCV)] Future Scheduled 2022 COLONOSCOPY SCREENING [facility] Test 13:45:15 [code = COLONOSCOPY SCREENING] Future Scheduled 2022 SHINGLES VACCINES (1 Met [facility] Test 13:45:15 of 2) [code = SHINGLES VACCINES (1 of 2)] Future Scheduled 2022 COVID-19 VACCINE (3 - [facility] Test 13:45:15 Booster for Pfizer series) [code = COVID-19 VACCINE (3 - Booster for Pfizer series)] Future Scheduled 2022 INFLUENZA VACCINE Method [facility] Test 13:45:15 [code = INFLUENZA VACCINE] Future Scheduled 2022 BREAST CANCER [facility] Test 13:45:15 SCREENING [code = BREAST CANCER SCREENING] Future Scheduled 2022 Screening for [facility] Test 13:45:15 malignant neoplasm of cervix (procedure) [code = 060414241] Future Scheduled 2022-04-17 HEPATITIS B VACCINES Met [facility] Test 10:21:02 (1 of 3 - 3-dose series) [code = HEPATITIS B VACCINES (1 of 3 - 3-dose series)] Future Scheduled 2022-04-17 Pneumococcal Vaccine: [facility] Test 10:21:02 Pediatrics (0 to 5 Years) and At-Risk Patients (6 to 64 Years) (1 - PCV) [code = Pneumococcal Vaccine: Pediatrics (0 to 5 Years) and At-Risk Patients (6 to 64 Years) (1 - PCV)] Future Scheduled 2022-04-17 COLONOSCOPY SCREENING [facility] Test 10:21:02 [code = COLONOSCOPY SCREENING] Future Scheduled 2022-04-17 SHINGLES VACCINES (1 Met [facility] Test 10:21:02 of 2) [code = SHINGLES VACCINES (1 of 2)] Future Scheduled 2022-04-17 COVID-19 VACCINE (3 - [facility] Test 10:21:02 Booster for Pfizer series) [code = COVID-19 VACCINE (3 - Booster for Pfizer series)] Future Scheduled 2022-04-17 INFLUENZA VACCINE Method [facility] Test 10:21:02 [code = INFLUENZA VACCINE] Future Scheduled 2022-04-17 BREAST CANCER [facility] Test 10:21:02 SCREENING [code = BREAST CANCER SCREENING] Future Scheduled 2022-04-17 Screening for [facility] Test 10:21:02 malignant neoplasm of cervix (procedure) [code = 332992713] Future Scheduled 2022-04-15 HEPATITIS B VACCINES Met [facility] Test 14:24:02 (1 of 3 - 3-dose series) [code = HEPATITIS B VACCINES (1 of 3 - 3-dose series)] Future Scheduled 2022-04-15 Pneumococcal Vaccine: [facility] Test 14:24:02 Pediatrics (0 to 5 Years) and At-Risk Patients (6 to 64 Years) (1 - PCV) [code = Pneumococcal Vaccine: Pediatrics (0 to 5 Years) and At-Risk Patients (6 to 64 Years) (1 - PCV)] Future Scheduled 2022-04-15 COLONOSCOPY SCREENING [facility] Test 14:24:02 [code = COLONOSCOPY SCREENING] Future Scheduled 2022-04-15 SHINGLES VACCINES (1 Met [facility] Test 14:24:02 of 2) [code = SHINGLES VACCINES (1 of 2)] Future Scheduled 2022-04-15 COVID-19 VACCINE (3 - [facility] Test 14:24:02 Booster for Pfizer series) [code = COVID-19 VACCINE (3 - Booster for Pfizer series)] Future Scheduled 2022-04-15 INFLUENZA VACCINE Method [facility] Test 14:24:02 [code = INFLUENZA VACCINE] Future Scheduled 2022-04-15 BREAST CANCER [facility] Test 14:24:02 SCREENING [code = BREAST CANCER SCREENING] Future Scheduled 2022-04-15 Screening for [facility] Test 14:24:02 malignant neoplasm of cervix (procedure) [code = 518109096] Future Scheduled 2022-04-03 HEPATITIS B VACCINES Met [facility] Test 09:31:00 (1 of 3 - 3-dose series) [code = HEPATITIS B VACCINES (1 of 3 - 3-dose series)] Future Scheduled 2022-04-03 Pneumococcal Vaccine: [facility] Test 09:31:00 Pediatrics (0 to 5 Years) and At-Risk Patients (6 to 64 Years) (1 - PCV) [code = Pneumococcal Vaccine: Pediatrics (0 to 5 Years) and At-Risk Patients (6 to 64 Years) (1 - PCV)] Future Scheduled 2022-04-03 COLONOSCOPY SCREENING [facility] Test 09:31:00 [code = COLONOSCOPY SCREENING] Future Scheduled 2022-04-03 SHINGLES VACCINES (1 Met [facility] Test 09:31:00 of 2) [code = SHINGLES VACCINES (1 of 2)] Future Scheduled 2022-04-03 COVID-19 VACCINE (3 - [facility] Test 09:31:00 Booster for Pfizer series) [code = COVID-19 VACCINE (3 - Booster for Pfizer series)] Future Scheduled 2022-04-03 INFLUENZA VACCINE Method [facility] Test 09:31:00 [code = INFLUENZA VACCINE] Future Scheduled 2022-04-03 BREAST CANCER [facility] Test 09:31:00 SCREENING [code = BREAST CANCER SCREENING] Future Scheduled 2022-04-03 Screening for [facility] Test 09:31:00 malignant neoplasm of cervix (procedure) [code = 428436876] Future Scheduled 2022-03-05 HEPATITIS B VACCINES Met [facility] Test 00:08:56 (1 of 3 - 3-dose series) [code = HEPATITIS B VACCINES (1 of 3 - 3-dose series)] Future Scheduled 2022-03-05 Pneumococcal Vaccine: [facility] Test 00:08:56 Pediatrics (0 to 5 Years) and At-Risk Patients (6 to 64 Years) (1 - PCV) [code = Pneumococcal Vaccine: Pediatrics (0 to 5 Years) and At-Risk Patients (6 to 64 Years) (1 - PCV)] Future Scheduled 2022-03-05 COLONOSCOPY SCREENING [facility] Test 00:08:56 [code = COLONOSCOPY SCREENING] Future Scheduled 2022-03-05 SHINGLES VACCINES (1 Met [facility] Test 00:08:56 of 2) [code = SHINGLES VACCINES (1 of 2)] Future Scheduled 2022-03-05 COVID-19 VACCINE (3 - [facility] Test 00:08:56 Booster for Pfizer series) [code = COVID-19 VACCINE (3 - Booster for Pfizer series)] Future Scheduled 2022-03-05 INFLUENZA VACCINE Method [facility] Test 00:08:56 [code = INFLUENZA VACCINE] Future Scheduled 2022-03-05 BREAST CANCER [facility] Test 00:08:56 SCREENING [code = BREAST CANCER SCREENING] Future Scheduled 2022-03-05 Screening for [facility] Test 00:08:56 malignant neoplasm of cervix (procedure) [code = 346434007] Future Scheduled 2022-03-05 HEPATITIS B VACCINES Met [facility] Test 00:08:56 (1 of 3 - 3-dose series) [code = HEPATITIS B VACCINES (1 of 3 - 3-dose series)] Future Scheduled 2022-03-05 Pneumococcal Vaccine: [facility] Test 00:08:56 Pediatrics (0 to 5 Years) and At-Risk Patients (6 to 64 Years) (1 - PCV) [code = Pneumococcal Vaccine: Pediatrics (0 to 5 Years) and At-Risk Patients (6 to 64 Years) (1 - PCV)] Future Scheduled 2022-03-05 COLONOSCOPY SCREENING [facility] Test 00:08:56 [code = COLONOSCOPY SCREENING] Future Scheduled 2022-03-05 SHINGLES VACCINES (1 Met [facility] Test 00:08:56 of 2) [code = SHINGLES VACCINES (1 of 2)] Future Scheduled 2022-03-05 COVID-19 VACCINE (3 - [facility] Test 00:08:56 Booster for Pfizer series) [code = COVID-19 VACCINE (3 - Booster for Pfizer series)] Future Scheduled 2022-03-05 INFLUENZA VACCINE Method [facility] Test 00:08:56 [code = INFLUENZA VACCINE] Future Scheduled 2022-03-05 BREAST CANCER [facility] Test 00:08:56 SCREENING [code = BREAST CANCER SCREENING] Future Scheduled 2022-03-05 Screening for [facility] Test 00:08:56 malignant neoplasm of cervix (procedure) [code = 064287533] Future Scheduled 2022-02-22 HEPATITIS B VACCINES Met [facility] Test 22:17:15 (1 of 3 - 3-dose series) [code = HEPATITIS B VACCINES (1 of 3 - 3-dose series)] Future Scheduled 2022-02-22 Pneumococcal Vaccine: [facility] Test 22:17:15 Pediatrics (0 to 5 Years) and At-Risk Patients (6 to 64 Years) (1 - PCV) [code = Pneumococcal Vaccine: Pediatrics (0 to 5 Years) and At-Risk Patients (6 to 64 Years) (1 - PCV)] Future Scheduled 2022-02-22 COLONOSCOPY SCREENING [facility] Test 22:17:15 [code = COLONOSCOPY SCREENING] Future Scheduled 2022-02-22 SHINGLES VACCINES (1 Met [facility] Test 22:17:15 of 2) [code = SHINGLES VACCINES (1 of 2)] Future Scheduled 2022-02-22 COVID-19 VACCINE (3 - [facility] Test 22:17:15 Booster for Pfizer series) [code = COVID-19 VACCINE (3 - Booster for Pfizer series)] Future Scheduled 2022-02-22 INFLUENZA VACCINE [facility] Test 22:17:15 [code = INFLUENZA VACCINE] Future Scheduled 2022-02-22 BREAST CANCER [facility] Test 22:17:15 SCREENING [code = BREAST CANCER SCREENING] Future Scheduled 2022-02-22 Screening for [facility] Test 22:17:15 malignant neoplasm of cervix (procedure) [code = [id number]] Future Scheduled 2022-01-10 IMM Influenza Seasonal H [...] yrs)] Future Scheduled 2020-01-14 [facility] Test 00:00:00 (Yearly) [code = [...] malignant neoplasm of colon (procedure) [code = 611056061] Future Scheduled 2019 [facility] 00:[facility]:00 malignant neoplasm of colon (procedure) [code = 087246528] Future Scheduled 2019 [facility]ening [facility] Test 00:00:00 malignant neoplasm of colon (procedure) [code = 197650408] Future Scheduled 2019 [facility]ening [facility] Test 00:00:00 malignant neoplasm of colon (procedure) [code = 632397598] Future Scheduled 2019 [facility] Test 00:00:00 malignant neoplasm of colon (procedure) [code = 194815176] Future Scheduled 2019 [facility] Test 00:00:00 malignant neoplasm of colon (procedure) [code = 649941792] Future Scheduled 2019 [facility] Test 00:00:00 malignant neoplasm of colon (procedure) [code = 981000819] Future Scheduled 2019 [facility] Test 00:00:00 malignant neoplasm of colon (procedure) [code = 543926701] Future Scheduled 2019 [facility] Test 00:00:00 malignant neoplasm of colon (procedure) [code = 390462815] Future Scheduled 2019 [facility] Test 00:00:00 malignant neoplasm of colon (procedure) [code = 034502679] Future Scheduled 1975 Imm Pneumococcal 0-64 Maria [...] Maintenance] Future Scheduled 1969 Dental X-Ray: Full [facility] Test 00:00:00 Mouth [code = [...] Type Clinicians Facility Department ID 2022-04-23 Outpatient [facility] [id number] [place] 15:11:46 [id number] Health 2022-09-10 2022-09-10 Jaclyn Sequeira 1.2.840.1 [id number] 4472 Methodi 00:00:00 00:00:00 Only Juana 10262.1.[address] Kelley 3.430.2.7 Hospit a .3.090820 l .8 2022-09-10 2022-09-10 Telephone Jean, 1.2.840.1 [id number] 2099 [id number] Methodi 00:00:00 00:00:[address] 3.430.2.7 Hospit a .3.963504 l .8 2022-05-15 2022-05-15 Outpatient KELLI ALDANA [id number] Kelli 00:00:00 00:00:00 SHINE ren 2022-02-19 2022-02-19 Emergency Vasquez, 1.2.840.1 [id number] 2100 060345 Methodi 18:09:00 20:16:[address] Bennett 3.430.2.7 Hosp shai .3.203164 l .8 2022-02-19 2022-02-19 Emergency Vasquez, 1.2.840.1 [id number] 2100 941732 Methodi 18:09:00 20:16:[address] Bennett 3.430.2.7 Hosp shai .3.704224 l .8 2022-02-12 2022-02-12 Orders Jessica, 1.2.840.1 [id number] 67110 Methodi 00:00:00 00:00:00 Only Maureen 27704.1.[address] 3.430.2.7 Hospit a .3.568269 l .8 2022-02-12 2022-02-12 Orders Lopez, 1.2.840.1 [id number] 42202 Methodi 00:00:00 00:00:00 Only Maureen 18039.1.[address] 3.430.2.7 Hospit a .3.444453 l .8 2022-02-11 2022-02-11 Orders Jessica, 1.2.840.1 [id number] 17748 Methodi 00:00:00 00:00:00 Only Maureen 58614.1.[address] 3.430.2.7 Hospit a .3.815427 l .8 2022-02-11 2022-02-11 Telephone Prasanth, 1.2.840.1 [id number] 2099 388814 Methodi 00:00:00 00:00:[address] Eddie Franco [address]24.1.[address] 3.430.2.7 Hospit a .3.952482 l .8 2022-02-11 2022-02-11 [facility] Jessica, 1.2.840.1 [id number] 03147 90599 Methodi 00:00:00 00:00:00 Only Maureen 58516.1.[address] 3.430.2.7 Hospit a .3.308646 l .8 2022-02-11 2022-02-11 Telephone Prasanth, 1.2.840.1 [id number] 2099 [id number] Methodi 00:00:00 00:00:[address] Eddie Franco [address]30.1.[address] 3.430.2.7 Hospit a .3.773525 l .8 2022-02-09 2022-02-09 Outpatient COH CO[facility] PDPFCCG ETQ COH 00:00:00 00:00:00 [id number] 2022-02-09 2022-02-09 Telephone Prasanth, 1.2.840.1 [id number] 2099 865236 Methodi 00:00:00 00:00:00 Eddie Franco 04173.1.[address] 3.430.2.7 Hospit a .3.724756 l .8 2022-02-09 2022-02-09 Telephone Prasanth, 1.2.840.1 [id number] 2099 079805 Methodi 00:00:00 00:00:00 Eddie Franco 98977.1.[address] 3.430.2.7 Hospit a .3.782300 l .8 2022-02-05 2022-02-05 Lab Prasanth, 1.2.840.1 [id number] 104842 3984 Methodi 10:50:00 10:55:00 Eddie Franco 90950.1.[address] 3.430.2.7 Hospit a .3.503254 l .8 2022-02-05 2022-02-05 Lab Prasanth, 1.2.840.1 [id number] 426331 6427 Methodi 10:50:00 10:55:00 Eddie Franco 82025.1.[address] 3.430.2.7 Hospit a .3.589373 l .8 2022-02-05 2022-02-05 Office Prasanth, 1.2.840.1 [id number] 137187 9354 Methodi 09:40:00 10:31:06 Visit Eddie Franco 12369.1.[address] 3.430.2.7 Hospit a .3.440961 l .8 2022-02-05 2022-02-05 Office Prasanth, 1.2.840.1 [id number] 610225 8699 Methodi 09:40:00 10:31:06 Visit Eddie Franco 39614.1.[address] 3.430.2.7 Hospit a .3.618727 l .8 2022-02-05 2022-02-05 Refill Istre, 1.2.840.1 [id number] 386689 6070 Methodi 00:00:00 00:00:[address] [place] 3.430.2.7 Hospi ta .3.504795 l .8 2022-02-05 2022-02-05 Travel 1.2.840.1 1.2.378.077 9807 654833 Methodi 00:00:00 00:00:[address] 3.430.2.7 0.2.7.3.698 Ho spita .3.961535 084.8 l .8 2022-02-05 2022-02-05 Refill Istre, 1.2.840.1 [id number] 584769 2723 Methodi 00:00:00 00:00:[address] [place] 3.430.2.7 Hospi ta .3.694539 l .8 2022-02-05 2022-02-05 Travel 1.2.840.1 1.2.069.354 0640 882895 Methodi 00:00:00 00:00:[address] 3.430.2.7 0.2.7.3.698 Ho spita .3.303845 084.8 l .8 2022-02-03 2022-02-03 Telephone Prasanth, 1.2.840.1 [id number] 2099 312494 Methodi 00:00:00 00:00:00 [address]al [address].1.[address] 3.430.2.7 Hospit a .3.903797 l .8 2022-02-03 2022-02-03 Telephone Prasanth, 1.2.840.1 [id number] 2099 890492 Methodi 00:00:00 00:00:00 [address]al [address] 3.430.2.7 Hospit a .3.140487 l .8 2022-01-01 2022-01-01 Telephone Alessio, 1.2.840.1 [id number] 2099 377906 Methodi 00:00:00 00:00:[address] 3.430.2.7 Hospit a .3.440663 l .8 2022-01-01 2022-01-01 Telephone Alessio, 1.2.840.1 [id number] 2099 407862 Methodi 00:00:00 00:00:[address] 3.430.2.7 Hospit a .3.833800 l .8 2021-12-26 2021-12-26 Surgery Small, 1.2.840.1 [id number] 027645 4776 Methodi 11:00:00 11:45:[address] Hasan 3.430.2.7 Hospit a .3.264225 l .8 2021-12-26 2021-12-26 Surgery Small, 1.2.840.1 [id number] 580545 1441 Methodi 11:00:00 11:45:[address] Hasan 3.430.2.7 Hospit a .3.638301 l .8 2021-12-26 2021-12-26 [facility], 1.2.840.1 [id number] 52324 Methodi 10:21:00 11:28:00 Encounter Proctor 25965.1.[address] Hasan 3.430.2.7 Hospit a .3.134040 l .8 2021-12-26 2021-12-26 [facility], 1.2.840.1 [id number] 75047 Methodi 10:21:00 11:28:00 Encounter Proctor 54098.1.[address] Hasan 3.430.2.7 Hospit a .3.601283 l .8 2021-12-26 2021-12-26 Anesthesia Hans Casper 1.2.840.1 [id number] Methodi 10:44:00 11:06:[address] Event Edward [address]43.1.[address] 3.430.2.7 Hospit a .3.628833 l .8 2021-12-26 2021-12-26 Anesthesia Hans Casper 1.2.840.1 [id number] Methodi 10:44:00 11:06:00 Event Edward [address]609.1.[address] 3.430.2.7 Hospit a .3.989644 l .8 2021-12-26 2021-12-26 Travel 1.2.840.1 1.2.444.482 5661 763875 Methodi 00:00:00 00:00:[address] 3.430.2.7 0.2.7.3.698 Ho spita .3.221320 084.8 l .8 2021-12-26 2021-12-26 Travel 1.2.840.1 1.2.933.158 0579 556373 Methodi 00:00:00 00:00:[address] 3.430.2.7 0.2.7.3.698 Ho spita .3.865667 084.8 l .8 2021-12-24 2021-12-24 Lab Staci, 1.2.840.1 [id number] 311339 0616 Methodi 08:00:00 08:15:[address] Hasan 3.430.2.7 Hospit a .3.759498 l .8 2021-12-24 2021-12-24 Lab Staci, 1.2.840.1 [id number] 851830 1149 Methodi 08:00:00 08:15:[address] Hasan 3.430.2.7 Hospit a .3.124147 l .8 2021-12-24 2021-12-24 Orders Marc, 1.2.840.1 [id number] 170087 4395 Methodi 00:00:00 00:00:00 Only Kortney 95822.1.[address] 3.430.2.7 Hospit a .3.866750 l .8 2021-12-24 2021-12-24 Orders Marc, 1.2.840.1 [id number] 999387 4014 Methodi 00:00:00 00:00:00 Only Kortney 18379.1.[address] 3.430.2.7 Hospit a .3.223602 l .8 2021-12-18 2021-12-18 Office Prasanth, 1.2.840.1 [id number] 664354 4358 Methodi 11:00:00 13:02:01 Visit Eddie Franco 35866.1.[address] 3.430.2.7 Hospit a .3.741673 l .8 2021-12-18 2021-12-18 Office Prasanth, 1.2.840.1 [id number] 955690 9561 Methodi 11:00:00 13:02:01 Visit Eddie Franco 54173.1.[address] 3.430.2.7 Hospit a .3.105193 l .8 2021-12-18 2021-12-18 Travel 1.2.840.1 1.2.985.903 5787 377802 Methodi 00:00:00 00:00:[address] 3.430.2.7 0.2.7.3.698 Ho spita .3.647180 084.8 l .8 2021-12-18 2021-12-18 Travel 1.2.840.1 1.2.077.180 5243 982722 Methodi 00:00:00 00:00:[address] 3.430.2.7 0.2.7.3.698 Ho spita .3.841343 084.8 l .8 2021-12-16 2021-12-16 Office Doug Estevez [facility] Encounter/ Legacy 00:00:00 00:00:00 Visit Bijan Carson [id number] [facility] [id number] [facility] 2021-12-09 2021-12-09 Refill Leggett, 1.2.840.1 [id number] 2099385 Methodi 00:00:00 00:00:[address] 3.430.2.7 Hospit a .3.887151 l .8 2021-12-09 2021-12-09 Refill Leggett, 1.2.840.1 [id number] 2099385 Methodi 00:00:00 00:00:[address] 3.430.2.7 Hospit a .3.894085 l .8 2021-11-28 2021-11-28 Office Carly, 1.2.840.1 [id number] 766 4729992 Methodi 10:15:00 10:52:48 Visit Pimfilippo 67106.1.[address] 3.430.2.7 Hospit a .3.918809 l .8 2021-11-28 2021-11-28 Office Carly, 1.2.840.1 [id number] 016 0338528 Methodi 10:15:00 10:52:48 [place] 15362.1.[address] 3.430.2.7 Hospit a .3.263964 l .8 2021-11-28 2021-11-28 Travel 1.2.840.1 1.2.379.167 6183 951779 Methodi 00:00:00 00:00:[address] 3.430.2.7 0.2.7.3.698 Ho spita .3.429824 084.8 l .8 2021-11-28 2021-11-28 Travel 1.2.840.1 1.2.462.880 9896 868758 Methodi 00:00:00 00:00:[address] 3.430.2.7 0.2.7.3.698 Ho spita .3.910289 084.8 l .8 2021-11-17 2021-11-17 [facility] 1.2.840.1 [id number] 525350 2076 Methodi 09:00:00 09:30:00 Visit Juana 25298.1.[address] Kelley 3.430.2.7 Hospit a .3.436819 l .8 2021-11-17 2021-11-17 Office [facility], 1.2.840.1 [id number] 997165 1919 Methodi 09:00:00 09:30:00 Visit Juana 39988.1.[address] [place] 3.430.2.7 Hospit a .3.520615 l .8 2021-11-17 2021-11-17 Travel 1.2.840.1 1.2.102.740 4078 923799 Methodi 00:00:00 00:00:[address] 3.430.2.7 0.2.7.3.698 Ho spita .3.147483 084.8 l .8 2021-11-17 2021-11-17 Travel 1.2.840.1 1.2.379.526 8351 392430 Methodi 00:00:00 00:00:[address] 3.430.2.7 0.2.7.3.698 Ho spita .3.356955 084.8 l .8 2021-11-14 2021-11-14 Orders Istre, 1.2.840.1 [id number] 465711 0439 Methodi 00:00:00 00:00:00 Only Shell 60926.1.[address] [place] 3.430.2.7 Hospi ta .3.241961 l .8 2021-11-14 2021-11-14 Orders Istre, 1.2.840.1 [id number] 100659 7883 Methodi 00:00:00 00:00:00 Only Shell 00360.1.[address] [place] 3.430.2.7 Hospi ta .3.454244 l .8 2021-11-11 2021-11-11 Telemedici Istre, 1.2.840.1 [id number] 560 6516187 Methodi 10:00:00 10:40:34 ne Shell 01779.1.[address] Doe 3.430.2.7 Hospi ta .3.223352 l .8 2021-11-11 2021-11-11 Telemedici Istre, 1.2.840.1 [id number] 754 7692256 Methodi 10:00:00 10:40:34 ne Shell 56497.1.[address] Doe 3.430.2.7 Hospi ta .3.284486 l .8 2021-11-07 2021-11-07 Emergency Noel, 1.2.840.1 087939976 2099246 Methodi 14:04:00 15:46:[address] Kirsten 3.430.2.7 Hospit a .3.304946 l .8 2021-11-07 2021-11-07 Emergency Noel, 1.2.840.1 3237792872099246 Methodi 14:04:00 15:46:[address] Kirsten 3.430.2.7 Hospit a .3.709218 l .8 2021-11-07 2021-11-07 Travel 1.2.840.1 1.2.410.680 3816 259472 Methodi 00:00:00 00:00:[address] 3.430.2.7 0.2.7.3.698 Ho spita .3.320483 084.8 l .8 2021-11-07 2021-11-07 Travel 1.2.840.1 1.2.827.365 7548 891420 Methodi 00:00:00 00:00:[address] 3.430.2.7 0.2.7.3.698 Ho spita .3.310085 084.8 l .8 2021-11-03 2021-11-03 Lab Small, 1.2.840.1 [id number] 624916 7637 Methodi 08:25:00 08:30:[address] Hasan 3.430.2.7 Hospit a .3.281383 l .8 2021-11-03 2021-11-03 Lab Small, 1.2.840.1 [id number] 917630 2490 Methodi 08:25:00 08:30:[address] Hasan 3.430.2.7 Hospit a .3.166691 l .8 2021-11-03 2021-11-03 Telephone Mccallum, 1.2.840.1 [id number] 2100 340469 Methodi 00:00:00 00:00:[address] 3.430.2.7 Hospit a .3.324820 l .8 2021-11-03 2021-11-03 Travel 1.2.840.1 1.2.857.476 7417 940637 Methodi 00:00:00 00:00:[address] 3.430.2.7 0.2.7.3.698 Ho spita .3.272623 084.8 l .8 2021-11-03 2021-11-03 Outpatient STACI, [facility] [id number] 623 [place] 00:00:00 00:00:00 PROCTOR [address] 2021-11-03 2021-11-03 Telephone Alessio, 1.2.840.1 [id number] 2100 038274 Methodi 00:00:00 00:00:[address] 3.430.2.7 Hospit a .3.378029 l .8 2021-11-03 2021-11-03 Travel 1.2.840.1 1.2.298.800 8051 368088 Methodi 00:00:00 00:00:[address] 3.430.2.7 0.2.7.3.698 Ho spita .3.550688 084.8 l .8 2021-10-29 2021-10-29 Documentat Binta, 1.2.840.1 [id number] 2 [id number] Methodi 00:00:00 00:00:00 ion Amanda 35070.1.[address] 3.430.2.7 Hospit a .3.044830 l .8 2021-10-29 2021-10-29 Prep for Binta, 1.2.840.1 045585018 089 8882587 Methodi 00:00:00 00:00:00 Surgery Amanda 98039.1.[address] 3.430.2.7 Hospit a .3.943833 l .8 2021-10-29 2021-10-29 Telephone Binta 1.2.840.1 [id number] 21 [id number] Methodi 00:00:00 00:00:[address] 3.430.2.7 Hospit a .3.879215 l .8 2021-10-29 2021-10-29 Travel 1.2.840.1 1.2.101.268 9501 257569 Methodi 00:00:00 00:00:[address] 3.430.2.7 0.2.7.3.698 Ho spita .3.168568 084.8 l .8 2021-10-29 2021-10-29 Documentat Binta, 1.2.840.1 [id number] 2 [id number] Methodi 00:00:00 00:00:00 ion Amanda 85481.1.[address] 3.430.2.7 Hospit a .3.213229 l .8 2021-10-29 2021-10-29 Prep for Binta, 1.2.840.1 842138901 782 4967836 Methodi 00:00:00 00:00:00 Surgery Amanda 18044.1.[address] 3.430.2.7 Hospit a .3.946216 l .8 2021-10-29 2021-10-29 Telephone Binta, 1.2.840.1 [id number] 21 [id number] Methodi 00:00:00 00:00:[address] 3.430.2.7 Hospit a .3.335129 l .8 2021-10-29 2021-10-29 Travel 1.2.840.1 1.2.615.210 7575 562201 Methodi 00:00:00 00:00:[address] 3.430.2.7 0.2.7.3.698 Ho spita .3.730242 084.8 l .8 2021-10-22 2021-10-22 Office Kem 1.2.840.1 431253739 561 1653472 Methodi 09:40:00 10:17:00 Visit Rebecca Nguyen 49801.1.[address] 3.430.2.7 Hospit a .3.054111 l .8 2021-10-22 2021-10-22 Office Kem, 1.2.840.1 301442616 505 9924444 Methodi 09:40:00 10:17:00 Visit Rebecca Nguyen 47689.1.[address] 3.430.2.7 Hospit a .3.903110 l .8 2021-10-22 2021-10-22 Travel 1.2.840.1 1.2.709.851 9659 237993 Methodi 00:00:00 00:00:[address] 3.430.2.7 0.2.7.3.698 Ho spita .3.045471 084.8 l .8 2021-10-22 2021-10-22 Travel 1.2.840.1 1.2.796.558 4991 065989 Methodi 00:00:00 00:00:[address] 3.430.2.7 0.2.7.3.698 Ho spita .3.080829 084.8 l .8 2021-10-14 2021-10-15 Emergency Adry, 1.2.840.1 [id number] 963 [id number] Methodi 21:57:00 00:06:00 José H [address]36.1.[address] 3.430.2.7 Hospit a .3.385321 l .8 2021-10-14 2021-10-15 Emergency Adry, 1.2.840.1 [id number] 576 4534379 Methodi 21:57:00 00:06:00 José H 62384.1.[address] 3.430.2.7 Hospit a .3.634083 l .8 2021-10-12 2021-10-12 Emergency Courtney, 1.2.840.1 [id number] 2099 [id number] Methodi 10:13:00 14:37:00 Trung Swann 67592.1.[address] 3.430.2.7 Hospit a .3.796143 l .8 2021-10-12 2021-10-12 Emergency Courtney, 1.2.840.1 [id number] 2100 751208 Methodi 10:13:00 14:37:00 Trung Swann 43944.1.[address] 3.430.2.7 Hospit a .3.400465 l .8 2021-10-09 2021-10-09 Telephone [facility] 1.2.840.1 [id number] Methodi 00:00:00 00:00:[address] 3.430.2.7 Hospit a .3.437300 l .8 2021-10-09 2021-10-09 Telephone [facility] 1.2.840.1 [id number] Methodi 00:00:00 00:00:[address] 3.430.2.7 Hospit a .3.501338 l .8 2021-10-09 2021-10-09 Orders Istre, 1.2.840.1 [id number] 2554 Methodi 00:00:00 00:00:00 Only Shell 12155.1.[address] [place] 3.430.2.7 Hospi ta .3.590527 l .8 2021-10-09 2021-10-09 Telephone [facility] 1.2.840.1 [id number] Methodi 00:00:00 00:00:[address] 3.430.2.7 Hospit a .3.611196 l .8 2021-10-09 2021-10-09 Telephone [facility] 1.2.840.1 [id number] Methodi 00:00:00 00:00:[address] 3.430.2.7 Hospit a .3.877513 l .8 2021-10-09 2021-10-09 Orders Istre, 1.2.840.1 [id number] 1474 Methodi 00:00:00 00:00:00 Only Shell 77136.1.[address] [place] 3.430.2.7 Hospi ta .3.024901 l .8 2021-10-02 2021-10-02 Telephone Lazarus, 1.2.840.1 [id number] 997 [id number] Methodi 00:00:00 00:00:[address] 3.430.2.7 Hospit a .3.791451 l .8 2021-10-02 2021-10-02 Telephone Lazarus, 1.2.840.1 [id number] 310 [id number] Methodi 00:00:00 00:00:[address] 3.430.2.7 Hospit a .3.067711 l .8 2021-09-30 2021-09-30 Surgery [place]mut, 1.2.840.1 [id number] 412 [id number] Methodi 07:15:00 09:02:00 Rebecca Nguyen 77361.1.[address] 3.430.2.7 Hospit a .3.856267 l .8 2021-09-30 2021-09-30 Surgery [place], 1.2.840.1 [id number] 852 [id number] Methodi 07:15:00 09:02:00 Rebecca Nguyen 00507.1.[address] 3.430.2.7 Hospit a .3.874335 l .8 2021-09-30 2021-09-30 [facility] 1.2.840.1 [id number] 21 [id number] Methodi 06:02:00 08:50:00 Encounter Rebecca Nguyen 35216.1.[address] 3.430.2.7 Hospit a .3.521497 l .8 2021-09-30 2021-09-30 [facility], 1.2.840.1 [id number] 21 [id number] Methodi 06:02:00 08:50:00 Encounter Rebecca Nguyen 25374.1.[address] 3.430.2.7 Hospit a .3.202780 l .8 2021-09-30 2021-09-30 Anesthesia Tomas Mattson. 1.2.840.1 1045 23638 [id number] Methodi 07:05:00 08:04:00 Event Sunita Marie 26955.1.[address] 3.430.2.7 Hospit a .3.600909 l .8 2021-09-30 2021-09-30 Anesthesia Tomas Mattson. 1.2.840.1 1045 71296 [id number] Methodi 07:05:00 08:04:00 Event Sunita Marie 74751.1.[address] 3.430.2.7 Hospit a .3.471192 l .8 2021-09-26 2021-09-26 Outpatient [facility] 2100 [id number] [place] 00:00:00 00:00:[address] REBECCA [address] 2021-09-19 2021-09-19 Travel 1.2.840.1 1.2.545.218 7680 340486 Methodi 00:00:00 00:00:[address] 3.430.2.7 0.2.7.3.698 Ho spita .3.742659 084.8 l .8 2021-09-19 2021-09-19 Orders Marrero, 1.2.840.1 [id number] 2099 771208 Methodi 00:00:00 00:00:00 Only Sharon 71403.1.[address] 3.430.2.7 Hospit a .3.623199 l .8 2021-09-19 2021-09-19 Orders Tavares, 1.2.840.1 [id number] 334301 4204 Methodi 00:00:00 00:00:00 Only Peggy 77076.1.[address] 3.430.2.7 Hospit a .3.104911 l .8 2021-09-19 2021-09-19 Travel 1.2.840.1 1.2.207.833 3079 121029 Methodi 00:00:00 00:00:[address] 3.430.2.7 0.2.7.3.698 Ho spita .3.415270 084.8 l .8 2021-09-19 2021-09-19 Orders Marrero, 1.2.840.1 [id number] 2100 [id number] Methodi 00:00:00 00:00:00 Only Sharon 03388.1.[address] 3.430.2.7 Hospit a .3.021073 l .8 2021-09-19 2021-09-19 Orders Tavares, 1.2.840.1 [id number] 714349 1094 Methodi 00:00:00 00:00:00 Only Peggy 50770.1.[address] 3.430.2.7 Hospit a .3.648907 l .8 2021-09-18 2021-09-18 Orders Propes, 1.2.840.1 167129366 804864 2313 Methodi 00:00:00 00:00:00 Only Pina 30114.1.[address] 3.430.2.7 Hospit a .3.123306 l .8 2021-09-18 2021-09-18 Orders Propes, 1.2.840.1 208338078 030475 6067 Methodi 00:00:00 00:00:00 Only Pina 09628.1.[address] 3.430.2.7 Hospit a .3.530636 l .8 2021-09-14 2021-09-14 Orders Tavares, 1.2.840.1 511301524 016400 3006 Methodi 00:00:00 00:00:00 Only Peggy 57809.1.[address] 3.430.2.7 Hospit a .3.483778 l .8 2021-09-14 2021-09-14 Orders Tavares, 1.2.840.1 [id number] 455839 2525 Methodi 00:00:00 00:00:00 Only Peggy 85844.1.[address] 3.430.2.7 Hospit a .3.959724 l .8 2021-09-11 2021-09-11 Office Tavares, 1.2.840.1 [id number] 765909 8151 Methodi 15:50:00 16:55:49 Visit Peggy 23713.1.[address] 3.430.2.7 Hospit a .3.061590 l .8 2021-09-11 2021-09-11 Travel 1.2.840.1 1.2.756.590 9344 374286 Methodi 00:00:00 00:00:[address] 3.430.2.7 0.2.7.3.698 Ho spita .3.145576 084.8 l .8 2021-09-10 2021-09-10 Office Kem, 1.2.840.1 [id number] 191 [id number] Methodi 10:40:00 11:03:05 Visit Rebecca Nguyen 65458.1.[address] 3.430.2.7 Hospit a .3.303397 l .8 2021-09-10 2021-09-10 Orders Edmundo, 1.2.840.1 [id number] 2099 343028 Methodi 00:00:00 00:00:00 Only Jami 73620.1.[address] 3.430.2.7 Hospit a .3.472176 l .8 2021-09-10 2021-09-10 Outpatient KEM, [facility] 2100 [id number] [place] 00:00:00 00:00:00 REBECCA Marc [facility] 2021-08-31 2021-08-31 Refill Iscorwin, 1.2.840.1 [id number] 940796 2921 Methodi 00:00:00 00:00:[address] Doe 3.430.2.7 Hospi ta .3.990670 l .8 2021-08-31 2021-08-31 Refill Prasanth, 1.2.840.1 [id number] 006637 4138 Methodi 00:00:00 00:00:00 Eddie Franco 47376.1.[address] 3.430.2.7 Hospit a .3.871320 l .8 2021-08-29 2021-08-29 Telephone Denisse, 1.2.840.1 [id number] 2099 338834 Methodi 00:00:00 00:00:00 Ivy Odom 02961.1.[address] 3.430.2.7 Hospit a .3.788830 l .8 2021-08-29 2021-08-29 Orders Istre, 1.2.840.1 254265991 369767 3920 Methodi 00:00:00 00:00:00 Only Shell 87993.1.[address] [place] 3.430.2.7 Hospi ta .3.331042 l .8 2021-08-28 2021-08-28 Travel 1.2.840.1 1.2.214.191 9049 281086 Methodi 00:00:00 00:00:[address] 3.430.2.7 0.2.7.3.698 Ho spita .3.551702 084.8 l .8 2021-08-26 2021-08-26 Emergency Mazin, 1.2.840.1 761352416 2100 080624 Methodi 16:36:00 20:08:[address] Adrienne 3.430.2.7 Hospit a .3.053172 l .8 2021-08-26 2021-08-26 Orders Colmenter, 1.2.840.1 034538621 752 7287374 Methodi 00:00:00 00:00:00 Only Linda 75232.1.[address] 3.430.2.7 Hospit a .3.861953 l .8 2021-08-21 2021-08-21 Orders Colmenter, 1.2.840.1 914044601 210 9223976 Methodi 00:00:00 00:00:00 Only Linda 10397.1.[address] 3.430.2.7 Hospit a .3.243011 l .8 2021-08-14 2021-08-14 Office Colmenter, 1.2.840.1 496385950 512 4109163 Methodi 11:00:00 13:05:34 Visit Linda 36857.1.[address] 3.430.2.7 Hospit a .3.993018 l .8 2021-08-12 2021-08-12 Office Prasanth, 1.2.840.1 924453856 810059 6064 Methodi 10:00:00 11:08:57 Visit Eddie Franco 89508.1.[address] 3.430.2.7 Hospit a .3.524647 l .8 2021-08-12 2021-08-12 Travel 1.2.840.1 1.2.495.377 8869 799963 Methodi 00:00:00 00:00:[address] 3.430.2.7 0.2.7.3.698 Ho spita .3.073469 084.8 l .8 2021-08-08 2021-08-08 Emergency EM Lynda, HCAKW SHIRLENE [id number] [facility] 12:48:00 19:41:00 Di 70 [facility] 2021-08-08 2021-08-08 Emergency EM Lynda, HCAKW HCAKW [id number] [facility] 12:48:00 19:41:00 Di [id number] [facility] 2021-08-08 2021-08-08 Outpatient Lynda, HCACL LABO [id number] [facility] 19:09:00 19:09:00 Di 00 [facility] 2021-08-08 2021-08-08 Transcribe Alicia, 1.2.840.1 [id number] 795 [id number] Methodi 00:00:00 00:00:00 Orders Shell 97476.1.[address] [place] 3.430.2.7 Hospi ta .3.560432 l .8 2021-08-06 2021-08-06 Emergency Myles Martin 1.2.840.1 [id number] Methodi 14:54:00 18:50:[address] 3.430.2.7 Hospit a .3.718537 l .8 2021-08-06 2021-08-06 Travel 1.2.840.1 1.2.961.104 7573 295182 Methodi 00:00:00 00:00:[address] 3.430.2.7 0.2.7.3.698 Ho spita .3.984889 084.8 l .8 2021-08-04 2021-08-04 Office Istre, 1.2.840.1 507411300 231400 9625 Methodi 14:20:00 15:33:19 Visit Shell 79948.1.[address] Doe 3.430.2.7 Hospi ta .3.166016 l .8 2021-08-04 2021-08-04 Travel 1.2.840.1 1.2.616.436 4314 339198 Methodi 00:00:00 00:00:[address] 3.430.2.7 0.2.7.3.698 Ho spita .3.217521 084.8 l .8 2021-07-31 2021-07-31 Emergency Nelson Villagran 1.2.840.1 759471306 [id number] Methodi 21:39:00 23:28:[address] 3.430.2.7 Hospit a .3.672831 l .8 2021-07-31 2021-07-31 Travel 1.2.840.1 1.2.342.348 5696 953801 Methodi 00:00:00 00:00:[address] 3.430.2.7 0.2.7.3.698 Ho spita .3.144718 084.8 l .8 2021-07-30 2021-07-30 Emergency Myles Martin 1.2.840.1 [id number] Methodi 13:34:00 17:16:[address] 3.430.2.7 Hospit a .3.720122 l .8 2021-07-30 2021-07-30 Telephone Istre, 1.2.840.1 [id number] 2099 146352 Methodi 00:00:00 00:00:[address] [place] 3.430.2.7 Hospi ta .3.949559 l .8 2021-07-28 2021-07-28 [facility] [id number] 879 [place] 00:00:00 00:00:00 PEGGY Smith [facility] 2021-07-24 2021-07-24 Orders Lopez, 1.2.840.1 [id number] 65583 31797 Methodi 00:00:00 00:00:00 Only Maureen 65467.1.[address] 3.430.2.7 Hospit a .3.707921 l .8 2021-07-23 2021-07-23 Orders Istre, 1.2.840.1 682176184 100498 7533 Methodi 00:00:00 00:00:00 Only Shell 58002.1.[address] Doe 3.430.2.7 Hospi ta .3.623830 l .8 2021-07-21 2021-07-21 Orders Istre, 1.2.840.1 039982321 758377 8966 Methodi 00:00:00 00:00:00 Only Shell 60585.1.[address] Doe 3.430.2.7 Hospi ta .3.953064 l .8 2021-07-15 2021-07-15 Telephone Leggett, 1.2.840.1 [id number] 21 [id number] Methodi 00:00:00 00:00:[address] 3.430.2.7 Hospit a .3.005950 l .8 2021-07-15 2021-07-15 Travel 1.2.840.1 1.2.440.559 7518 047794 Methodi 00:00:00 00:00:[address] 3.430.2.7 0.2.7.3.698 Ho spita .3.647288 084.8 l .8 2021-07-10 2021-07-10 Treatment Istre, Shell Doe 1.2.840.1 929616812 [id number] Methodi 09:00:00 10:00:00 Peggy Esparza 92230.1.[address] Smooth [place] 3.430.2.7 H ospita .3.348016 l .8 2021-07-10 2021-07-10 Plan of 1.2.840.1 725129980 498365 2572 Methodi 00:00:00 00:00:[address] Documentat 3.430.2.7 Hos margie ion .3.222345 l .8 2021-07-09 2021-07-09 Travel 1.2.840.1 1.2.935.482 3450 122100 Methodi 00:00:00 00:00:[address] 3.430.2.7 0.2.7.3.698 Ho spita .3.785963 084.8 l .8 2021-07-09 2021-07-09 Orders Istre, 1.2.840.1 500806051 613977 6657 Methodi 00:00:00 00:00:00 Only Shell 21528.1.[address] [place] 3.430.2.7 Hospi ta .3.786357 l .8 2021-07-03 2021-07-03 Travel 1.2.840.1 1.2.875.977 9120 416808 Methodi 00:00:00 00:00:[address] 3.430.2.7 0.2.7.3.698 Ho spita .3.856137 084.8 l .8 2021-06-30 2021-06-30 Emergency Tyshawn, Nelson 1.2.840.1 [id number] [id number] Methodi 14:43:00 20:06:[address] 3.430.2.7 Hospit a .3.274933 l .8 2021-06-19 2021-06-19 Orders Madera, 1.2.840.1 717195470 168239 0155 Methodi 00:00:00 00:00:00 Only Susanne 89134.1.[address] 3.430.2.7 Hospit a .3.282453 l .8 2021-06-18 2021-06-18 Orders Tran, 1.2.840.1 262388009 462369 7780 Methodi 00:00:00 00:00:00 Only Kortney 18767.1.[address] 3.430.2.7 Hospit a .3.090394 l .8 2021-06-18 2021-06-18 Telephone Jessica, 1.2.840.1 [id number] 815 5934311 Methodi 00:00:00 00:00:[address] 3.430.2.7 Hospit a .3.864757 l .8 2021-06-16 2021-06-16 Office Prasanth, 1.2.840.1 961047895 865604 4201 Methodi 11:40:00 13:03:55 Visit Eddie AldridgeChantal 93123.1.[address] 3.430.2.7 Hospit a .3.582891 l .8 2021-06-16 2021-06-16 Travel 1.2.840.1 1.2.450.563 5152 795487 Methodi 00:00:00 00:00:[address] 3.430.2.7 0.2.7.3.698 spita .3.074828 084.8 l .8 2021-06-03 2021-06-03 Refill Madera, 1.2.840.1 712832417 950420 5476 Methodi 00:00:00 00:00:[address] 3.430.2.7 Hospit a .3.665278 l .8 2021-06-03 2021-06-03 Telephone Brady, 1.2.840.1 [id number] 2099 195637 Methodi 00:00:00 00:00:[address] 3.430.2.7 Hospit a .3.830083 l .8 2021-06-02 2021-06-02 Emergency Gunnar, 1.2.840.1 503255801 2 [id number] Methodi 10:56:00 13:23:00 Mario Crook 48058.1.1 606 [address] t 3.430.2.7 Hospit a .3.211354 l .8 2021-06-02 2021-06-02 Orders Alicia, 1.2.840.1 079438073 710383 5683 Methodi 00:00:00 00:00:00 Only Shell 44122.1.[address] Doe 3.430.2.7 Hospi ta .3.311945 l .8 2021-05-30 2021-05-30 Treatment Shaun Vargasudy Doe 1.2.840.1 327015173 [id number] Methodi 10:00:00 11:00:00 Smooth [place] [address]1484.[address] 3.430.2.7 Hospit a .3.176801 l .8 2021-05-28 2021-05-28 Orders Alicia, 1.2.840.1 506654086 491273 6637 Methodi 00:00:00 00:00:00 Only Shell 20672.1.[address] [place] 3.430.2.7 Hospi ta .3.189795 l .8 2021-05-27 2021-05-27 Travel 1.2.840.1 1.2.028.510 7785 714411 Methodi 00:00:00 00:00:[address] 3.430.2.7 0.2.7.3.698 Ho spita .3.645222 084.8 l .8 2021-05-19 2021-05-19 Evaluation Kamryn Vargasy Doe 1.2.840.1 [id number] [id number] Methodi 11:00:00 12:00:00 Peggy Esparza 32261.1.[address] Smooth [place] 3.430.2.7 H ospita .3.945474 l .8 2021-05-19 2021-05-19 Plan of 1.2.840.1 521182929 077525 1587 Methodi 00:00:00 00:00:[address] Documentat 3.430.2.7 Hos margie ion .3.524504 l .8 2021-05-19 2021-05-19 Travel 1.2.840.1 1.2.155.911 9879 623046 Methodi 00:00:00 00:00:[address] 3.430.2.7 0.2.7.3.698 Ho spita .3.869240 084.8 l .8 2021-05-09 2021-05-09 Travel 1.2.840.1 1.2.865.450 5148 215539 Methodi 00:00:00 00:00:[address] 3.430.2.7 0.2.7.3.698 Ho spita .3.129621 084.8 l .8 2021-05-09 2021-05-09 Outpatient [facility] [id number] 977 [place] 00:00:00 00:00:00 PEGGY [address] 2021-05-06 2021-05-06 Orders Istre, 1.2.840.1 311399737 228336 9062 Methodi 00:00:00 00:00:00 Only Shell 22442.1.[address] Doe 3.430.2.7 Hospi ta .3.324791 l .8 2021-05-05 2021-05-05 Outpatient [facility] [id number] 738 [place] 00:00:00 00:00:00 PEGGY [address] 2021-05-04 2021-05-04 Emergency Oghogho, 1.2.840.1 [id number] 949 [id number] Methodi 14:39:00 18:56:[address] 3.430.2.7 Hospit a .3.997533 l .8 2021-05-04 2021-05-04 Travel 1.2.840.1 1.2.670.586 4290 428295 Methodi 00:00:00 00:00:[address] 3.430.2.7 0.2.7.3.698 Ho spita .3.832303 084.8 l .8 2021-05-02 2021-05-02 [facility] 68074 9559 [place] 00:00:00 00:00:00 [facility] 2021-04-30 2021-04-30 Travel 1.2.840.1 1.2.560.442 6977 279179 Methodi 00:00:00 00:00:[address] 3.430.2.7 0.2.7.3.698 Ho spita .3.477152 084.8 l .8 2021-04-28 2021-04-28 Orders Istre, 1.2.840.1 037981389 915503 3377 Methodi 00:00:00 00:00:00 Only Shell 11319.1.[address] [place] 3.430.2.7 Hospi ta .3.533707 l .8 2021-04-17 2021-04-17 Office Istre, 1.2.840.1 496596190 369095 9909 Methodi 15:00:00 15:00:06 Visit Shell 53309.1.[address] Doe 3.430.2.7 Hospi ta .3.701073 l .8 2021-04-16 2021-04-16 Travel 1.2.840.1 1.2.072.573 2988 406220 Methodi 00:00:00 00:00:[address] 3.430.2.7 0.2.7.3.698 Ho spita .3.888422 084.8 l .8 2021-04-12 2021-04-12 Emergency Svach, 1.2.840.1 [id number] 2099 304100 Methodi 15:47:00 22:48:00 Shine R [address]273.1.[address] 3.430.2.7 Hospit a .3.430536 l .8 2021-04-08 2021-04-08 Travel 1.2.840.1 1.2.541.870 4970 560399 Methodi 00:00:00 00:00:[address] 3.430.2.7 0.2.7.3.698 Ho spita .3.953729 084.8 l .8 2021-03-28 2021-03-28 Office Rj Mireles [facility] [address] [id number] 1 [id number] [place] 08:30:00 09:30:00 Visit [facility] 2021-03-28 2021-03-28 [facility] [id number] 6844 [place] 00:00:00 00:00:00 [facility] 2021-03-14 2021-03-14 Outpatient [facility] [id number] 1468 [place] 00:00:00 00:00:00 [facility] 2021-03-03 2021-03-03 Telephone Alicia, 1.2.840.1 [id number] 2099 669461 Methodi 11:20:00 11:48:51 Consult Shell 11764.1.[address] Doe 3.430.2.7 Hospi ta .3.743282 l .8 2021-02-27 2021-02-27 Travel 1.2.840.1 1.2.710.718 7010 351950 Methodi 00:00:00 00:00:[address] 3.430.2.7 0.2.7.3.698 Ho spita .3.588210 084.8 l .8 2021-02-19 2021-02-19 Outpatient CARLY, [facility] 2100 [id number] [place] 00:00:00 00:00:[address] 2021-02-17 2021-02-17 Outpatient [facility] [id number] 297 [place] 00:00:00 00:00:00 482 Method i 2021-02-17 2021-02-17 Outpatient STACI, [facility] [id number] 406 [place] 00:00:00 00:00:00 PROCTOR 706 Method i 2021-02-10 2021-02-10 Outpatient TAVARES, [facility] [id number] 790 [place] 00:00:00 00:00:00 PEGGY 856 Method i 2021-02-07 2021-02-07 Outpatient ALICIA, [facility] [id number] 637 [place] 00:00:00 00:00:00 SHELL 793 Method i 2021-01-30 2021-01-31 Outpatient IMELDA, [facility] 544 [id number] 174 [place] 00:00:00 00:00:00 KRISTY 451 Method i 2021-01-25 2021-01-25 Emergency KENA KILLIAN [facility] 064 [id number] 52298 [place] 00:00:00 00:00:00 190 Method i 2021-01-24 2021-01-24 Outpatient VEJPONGSA, [facility] 2100 [id number] [place] 00:00:00 00:00:00 PIMPRAPA 711 Metho di 2021-01-09 2021-01-09 Outpatient [facility] [id number] 646 [place] 00:00:00 00:00:00 247 Method i 2020-12-29 2020-12-29 Emergency VASQUEZ, [facility] 064 [id number] 98 [place] 00:00:00 00:00:00 CRISTÓBAL 225 Method i 2020-12-23 2020-12-23 Outpatient PRASANTH, [facility] [id number] 498 [place] 00:00:00 00:00:00 EDDIE 305 Method i 2020-12-11 2020-12-11 Emergency VASQUEZ, [facility] 064 [id number] 96 [place] 00:00:00 00:00:00 CRISTÓBAL 030 Method i 2020-12-08 2020-12-08 Emergency TRISTAN, [facility] 064 [id number] 26 [place] 00:00:00 00:00:00 TRUNG 699 Method i 2020-11-25 2020-11-26 Office Doug Estevez [facility] Encounter/ Legacy 00:00:00 00:00:00 Visit Symone Moreau [id number] Communi [id number] [facility] 2020-11-25 2020-11-26 Office Doug Estevez [facility] Encounter/ Legacy 00:00:00 00:00:00 Visit Symone Moreau [id number] 3189 Communi [id number] [facility] 2020-11-18 2020-11-18 Outpatient STACI, [facility] [id number] 074 [place] 00:00:00 00:00:00 PROCTOR 729 Method i 2020-11-02 2020-11-02 Emergency HALEY, [facility] [id number] 062 [place] 00:00:00 00:00:00 ROGER 241 Method i 2020-10-29 2020-10-29 Outpatient STACI, [facility] [id number] 857 [place] 00:00:00 00:00:00 PROCTOR 983 Method i 2020-10-25 2020-10-25 Outpatient VESOLIS, [facility] 2100 [id number] [place] 00:00:00 00:00:00 PIMPRAPA 573 Metho di 2020-10-24 2020-10-24 Outpatient VESOLIS, [facility] 2100 [id number] [place] 00:00:00 00:00:00 PIMPRAPA 921 Metho di 2020-10-18 2020-10-19 Emergency HOPE, [facility] 064 [id number] 58 [place] 00:00:00 00:00:00 TRUNG 724 Method i 2020-10-18 2020-10-18 Outpatient SMALL, [facility] [id number] 110 [place] 00:00:00 00:00:00 PROCTOR 224 Method i 2020-10-11 2020-10-11 Emergency COURTNEY, [facility] 064 [id number] 52 [place] 00:00:00 00:00:00 TRUNG 080 Method i 2020-10-09 2020-10-09 Outpatient PRASANTH, [facility] [id number] 499 [place] 00:00:00 00:00:00 EDDIE 020 Method i 2020-10-01 2020-10-01 Outpatient AHMED, [facility] [id number] 980 [place] 00:00:00 00:00:00 MOHAMMAD 768 Metho di 2020-09-26 2020-09-26 Outpatient STACI, [facility] [id number] 765 [place] 00:00:00 00:00:00 PROCTOR 047 Method i 2020-09-13 2020-09-13 Outpatient PRASANTH, [facility] [id number] 045 [place] 00:00:00 00:00:00 EDDIE 249 Method i 2020-09-11 2020-09-11 Outpatient VEJPONGSA, [facility] 2100 [id number] [place] 00:00:00 00:00:00 PIMPRAPA 754 Metho di 2020-08-23 2020-08-23 Outpatient AHMED, [facility] [id number] 605 [place] 00:00:00 00:00:00 MOHAMMAD 132 Metho di 2020-08-19 2020-08-21 Outpatient MELTON, [facility] 306 [id number] 265 [place] 00:00:00 00:00:00 TRUNG 187 Method i 2020-07-31 2020-08-01 Outpatient ARREDONDO, [facility] 634 [id number] 975 [place] 00:00:00 00:00:00 RICKY-DEBBIE 628 Met hodi 2020-07-16 2020-07-16 Emergency HOPE, [facility] 064 [id number] 18 [place] 00:00:00 00:00:00 TRUNG 600 Method i 2020-07-05 2020-07-05 Outpatient BROCK, [facility] [id number] [place] 00:00:00 00:00:00 [facility] 2020-07-05 2020-07-05 Emergency VASQUEZ, [facility] 064 [id number] 62 [place] 00:00:00 00:00:00 CRISTÓBAL 088 Method i 2020-06-28 2020-06-28 Outpatient STACI, [facility] [id number] 302 [place] 00:00:00 00:00:00 PROCTOR 174 Method i 2020-06-27 2020-06-27 Outpatient PRASANTH, [facility] [id number] 221 [place] 00:00:00 00:00:00 EDDIE 576 Method i 2020-06-24 2020-06-24 Outpatient ISCORWIN, [facility] [id number] 844 [place] 00:00:00 00:00:00 SHELL 509 Method i 2020-06-19 2020-06-20 Emergency ALEVISM, [facility] 064 [id number] 53 [place] 00:00:00 00:00:00 NADIM 685 Method i 2020-06-11 2020-06-11 Outpatient SMALL, [facility] [id number] 229 [place] 00:00:00 00:00:00 PROCTOR 214 Method i 2020-06-11 2020-06-11 Outpatient SMALL, [facility] [id number] 908 [place] 00:00:00 00:00:00 PROCTOR 956 Method i 2020-06-06 2020-06-06 Outpatient ISTRE, [facility] [id number] 806 [place] 00:00:00 00:00:00 SHELL 498 Method i 2020-06-03 2020-06-03 Outpatient ISTRE, [facility] [id number] 559 [place] 00:00:00 00:00:00 SHELL 193 Method i 2020-06-03 2020-06-03 Outpatient ISTRE, [facility] [id number] 559 [place] 00:00:00 00:00:00 SHELL 363 Method i 2020-05-26 2020-05-27 Outpatient SMALL, [facility] 825 [id number] 252 [place] 00:00:00 00:00:00 HAYLEE 766 Method i 2020-05-24 2020-05-24 Emergency JOSSY, [facility] 064 [id number] 24 [place] 00:00:00 00:00:00 BELKIS 964 Method i 2020-05-23 2020-05-23 Emergency FORMAN, [facility] 064 [id number] 56 [place] 00:00:00 00:00:00 TANIA 926 Method i 2020 2020 Outpatient ISTRE, [facility] [id number] 895 [place] 00:00:00 00:00:00 SHELL 882 Method i 2020 2020 Emergency KENDIG, [facility] 064 [id number] 65 [place] 00:00:00 00:00:00 KALIF 304 Method i 2020-05-20 2020-05-20 Outpatient ISTRE, [facility] [id number] 407 [place] 00:00:00 00:00:00 SHELL 217 Method i 2020-05-13 2020-05-13 Outpatient MIRELES, [facility] [id number] 41 [place] 00:00:00 00:00:00 RJ Sutton h 2020-05-11 2020-05-11 Emergency HOPE, [facility] 064 [id number] 87 [place] 00:00:00 00:00:00 TRUNG [address] 2020-05-07 2020-05-07 Outpatient HALEIGHROGER [facility] [id number] [place] 07:48:18 07:48:18 Health 2020-04-15 2020-04-15 Emergency KENA KILLIAN [facility] 064 [id number] [place] 00:00:00 00:00:00 597 Method i 2020-04-01 2020-04-01 Emergency KI, [facility] 06 [id number] 10 [place] 00:00:00 00:00:00 KALIF 631 Method i 2020-03-23 2020-03-24 Inpatient SEPTIMUS, [facility] 089 [id number] [place] 00:00:00 00:00:00 STEPHY 252 Method i 2020-03-23 2020-03-23 Emergency HOPE, [facility] 064 [id number] 79 [place] 00:00:00 00:00:00 TRUNG 603 Method i 2020-03-20 2020-03-20 Emergency ALTAGRACIA VILLASENOR [facility] 064 [id number] [place] 00:00:00 00:00:00 875 Method i 2020-02-29 2020-03-01 Emergency DE CRANDALL, [facility] 06 [id number] [place] 00:00:00 00:00:00 EMY 731 Me odi 2020-02-05 2020-02-06 Emergency ENE, [facility] 064 [id number] [place] 00:00:00 00:00:00 KEM 185 Meth john 2020-02-03 2020-02-03 Emergency DE CRANDALL, [facility] 064 [id number] [place] 00:00:00 00:00:00 EMY 451 Me thodi 2019-12-20 2019-12-21 Emergency NORJAREDKY, [facility] 064 [id number] [place] 00:00:00 00:00:00 KEM 640 Meth john 2019-12-14 2019-12-14 Emergency KI, [facility] 064 [id number] [place] 00:00:00 00:00:00 KALIF 126 Method i 2019-12-11 2019-12-11 Emergency HOPE, [facility] 064 [id number] [place] 00:00:00 00:00:00 TRUNG 349 Method i 2019-12-08 2019-12-08 Emergency SUSHIL, [facility] 767 [id number] [place] 00:00:00 00:00:00 ISAC 449 Ne thodi 2019-11-24 2019-11-24 Outpatient ROGER ZAPATA [facility] [id number] [place] 00:00:00 00:00:00 Health 2019-11-21 2019-11-21 Emergency NELSON VILLAGRAN [facility] 064 [id number] [place] 00:00:00 00:00:00 015 Method i 2019-11-14 2019-11-14 Outpatient ROGER ZAPATA [facility] [id number] [place] 06:55:06 06:55:06 Health 2019-11-13 2019-11-13 Outpatient [facility] [id number] [place] 00:00:00 00:00:00 Health 2019-11-10 2019-11-11 Emergency HOPE, [facility] 064 [id number] [place] 00:00:00 00:00:00 TRUNG 398 Method i 2019-11-07 2019-11-07 Outpatient [facility] [id number] [place] 14:24:03 14:24:03 Health 2019-11-07 2019-11-07 Outpatient [facility] [id number] [place] 12:22:44 12:22:44 Health 2019-11-07 2019-11-07 Outpatient [facility] [id number] [place] 00:00:00 00:00:00 Health 2019-11-07 2019-11-07 Outpatient [facility] [id number] [place] 00:00:00 00:00:00 Health 2019-10-30 2019-10-30 Outpatient [facility] [id number] [place] 11:49:58 11:49:58 Health 2019-10-30 2019-10-30 Outpatient [facility] [id number] [place] 00:00:00 00:00:00 Health 2019-10-12 2019-10-12 Outpatient [facility] [id number] [place] 00:00:00 00:00:00 Health 2019-10-10 2019-10-10 Outpatient [facility] [id number] [place] 08:15:33 08:15:33 2019-10-09 2019-10-09 Outpatient [facility] [id number] [place] 00:00:00 00:00:00 2019-09-25 2019-09-25 Outpatient [facility] [id number] [place] 00:00:00 00:00:00 Health 2019-09-19 2019-09-19 Outpatient [facility] [id number] [place] 15:17:15 15:17:15 Health 2019-09-12 2019-09-12 Outpatient [facility] [id number] [place] 09:33:27 09:33:27 Health 2019-09-12 2019-09-12 Outpatient [facility] [id number] [place] 08:35:47 08:35:47 Health 2019-09-12 2019-09-12 Outpatient [facility] [id number] [place] 00:00:00 00:00:00 2019-09-09 2019-09-09 Emergency HOPE, [facility] 064 [id number] [place] 00:00:00 00:00:00 TRUNG [address] 2019-08-25 2019-08-25 Outpatient [facility] [id number] [place] 06:54:32 06:54:32 Health 2019-08-24 2019-08-24 Outpatient [facility] [id number] [place] 00:00:00 00:00:00 2019-08-23 2019-08-23 Outpatient [facility] [id number] [place] 00:00:00 00:00:00 Health 2019-08-05 2019-08-05 Emergency VANDER [facility] 064 [id number] [place] 00:00:00 00:00:00 OTILIO, 7[address] 2019-08-03 2019-08-03 Emergency BARRON HARDIN [facility] 064 [id number] [place] 00:00:00 00:00:[address] 2019-07-24 2019-07-24 Outpatient [facility] [id number] [place] 08:35:14 08:35:14 Health 2019-06-21 2019-06-21 Outpatient [facility] [id number] [place] 00:00:00 00:00:00 Health 2019-06-15 2019-06-16 Emergency HOPE, [facility] 064 [id number] [place] 00:00:00 00:00:00 TRUNG Koroma8 Method i 2019-06-15 2019-06-15 Emergency [facility] MED [id number] [place] 14:03:00 14:03:00 [facility] 2019-06-14 2019-06-14 Outpatient [facility] [id number] [place] 00:00:00 00:00:00 [facility] 2019-06-08 2019-06-08 Outpatient [facility] [id number] [place] 13:49:26 13:49:26 [facility] 2019-06-08 2019-06-08 Outpatient [facility] [id number] [place] 13:11:00 13:11:00 [facility] 2019-06-08 2019-06-08 Outpatient [facility] [id number] [place] 00:00:00 00:00:00 [facility] 2019-06-07 2019-06-07 Emergency [facility] [id number] [place] 12:06:12 12:06:12 [facility] 2019-06-07 2019-06-07 Emergency [facility] MED [id number] [place] 10:57:48 10:57:48 Health 2019-03-15 2019-03-15 Outpatient [facility] [id number] [place] 14:00:36 14:00:36 [facility] 2019-03-15 2019-03-15 Outpatient [facility] [id number] [place] 12:20:09 12:20:09 [facility] 2019-03-15 2019-03-15 Outpatient [facility] [id number] [place] 00:00:00 00:00:00 [facility] 2019-01-25 2019-01-25 Outpatient [facility] [id number] [place] 10:20:47 10:20:47 [facility] 2019-01-13 2019-01-13 Outpatient [facility] [id number] [place] 10:25:55 10:25:55 Health 2019-01-03 2019-01-03 Outpatient [facility] [id number] [place] 10:33:43 10:33:43 Health 2019-01-03 2019-01-03 Outpatient [facility] [id number] [place] 08:40:50 08:40:50 Health 2019-01-03 2019-01-03 Outpatient [facility] [id number] [place] 07:58:31 07:58:31 Health 2019-01-03 2019-01-03 Outpatient [facility] [id number] [place] 00:00:00 00:00:00 [facility] 2018-12-29 2018-12-29 Outpatient [facility] [id number] [place] 00:00:00 00:00:00 [facility] 2018-12-27 2018-12-27 Outpatient [facility] [id number] [place] 00:00:00 00:00:00 Health 2018-12-26 2018-12-26 Outpatient [facility] [id number] [place] 16:37:58 16:37:58 Health 2018-12-09 2018-12-09 Outpatient [facility] [id number] [place] 16:51:56 16:51:56 Health 2018-12-09 2018-12-09 Outpatient [facility] [id number] [place] 14:15:31 14:15:31 Health 2018-12-09 2018-12-09 Outpatient [facility] [id number] [place] 00:00:00 00:00:00 [facility] 2018-11-26 2018-11-26 Emergency [facility] [id number] [place] 16:08:40 16:08:40 [facility] 2018-01-17 2018-01-17 Outpatient E MYRNA CEDENO [facility] [id number] [place] 10:49:00 12:30:00 [facility] 2017-12-28 2017-12-28 Outpatient E MILES [facility] [id number] [place] 10:12:00 12:25:00 [facility] 2017-12-20 2017-12-20 Outpatient E MYRNA CEDENO [facility] [id number] [place] 23:13:00 23:50:00 [facility] 2017-10-15 2017-10-15 Outpatient E SHEIKH [facility] [id number] [place] 09:57:00 11:15:00 [facility] Results Test Description Test Time Test Comments Results Result Comments Source ECG 12 lead 2022-03-24 04:27:49 Test Item Value Reference Range Interpretation Comme nts Ventricular rate (test code = 253) Atrial rate (test code = 255) WV interval (test code = 266) QRSD interval [...] of 28-NOV-2021 10:26,-No significant change was found- [address]2022-12-13 04:27:49 Test Item Value Reference Range Interpretation Comments Ventricular rate (test code = 253) Atrial rate (test code = 255) WV interval (test code = 266) QRSD interval [...] of 28-NOV-2021 10:26,-No significant change was found- [address]2022-12-13 04:27:49 Test Item Value Reference Range Interpretation Comments Ventricular rate (test code = 253) Atrial rate (test code = 255) WV interval (test code = 266) QRSD interval [...] of 28-NOV-2021 10:26,-No significant change was found- [address]2022-12-13 04:27:49 Test Item Value Reference Range Interpretation Comments Ventricular rate (test 71 code = 253) Atrial rate (test code 71 = 255) WV interval (test code 124 = 266) QRSD [...] of 28-NOV-2021 10:26,-No significant change was found- [address]2022-12-13 04:27:49 Test Item Value Reference Range Interpretation Comments Ventricular rate (test 71 code = 253) Atrial rate (test code 71 = 255) WV interval (test code 124 = 266) QRSD [...] of 28-NOV-2021 10:26,-No significant change was found- [address]2022-12-13 04:27:49 Test Item Value Reference Range Interpretation Comments Ventricular rate (test 71 code = 253) Atrial rate (test code 71 = 255) WV interval (test code 124 = 266) QRSD [...] of 28-NOV-2021 10:26,-No significant change was found- [address]2022-12-13 04:27:49 Test Item Value Reference Range Interpretation Comments Ventricular rate (test 71 code = 253) Atrial rate (test code 71 = 255) WV interval (test code 124 = 266) QRSD [...] of 28-NOV-2021 10:26,-No significant change was found- [facility]2022-11-10 23:39:00 Test Item Value Reference Range Interpretation Comments Urine culture (test SEE COMMENT Bacteriu brandon screen code = 4706816) negative. [facility]2022-11-10 23:39:00 Test Item Value Reference Range Interpretation Comments Urine culture (test SEE COMMENT Bacteriu brandon screen code = 1713616) negative. [facility]2022-11-10 23:39:00 Test Item Value Reference Range Interpretation Comments Urine culture (test SEE COMMENT Bacteriu brandon screen code = 5260195) negative. [facility] [id number] 23:39:00 Test Item Value Reference Range Interpretation Comments Urine culture (test SEE COMMENT Bacteriu brandon screen code = 0565017) negative. [facility] [id number] 23:39:00 Test Item Value Reference Range Interpretation Comments Urine culture (test SEE COMMENT Bacteriu brandon screen code = 6633931) negative. [facility] [id number] 23:39:00 Test Item Value Reference Range Interpretation Comments Urine culture (test SEE COMMENT Bacteriu brandon screen code = 2108586) negative. [facility] [id number] 23:39:00 Test Item Value Reference Range Interpretation Comments Urine culture (test SEE COMMENT Bacteriu brandon screen code = 1903297) negative. [facility]2022-11-10 23:39:00 Test Item Value Reference Range Interpretation Comments Urine culture (test SEE COMMENT Bacteriu brandon screen code = 7867042) negative. [facility] [id number] 23:39:00 Test Item Value Reference Range Interpretation Comments Urine culture (test SEE COMMENT Bacteriu brandon screen code = 3896880) negative. [facility] [id number] 23:39:00 Test Item Value Reference Range Interpretation Comments Urine culture (test SEE COMMENT Bacteriu brandon screen code = 6640951) negative. [facility] [id number] 22:17:00 Test Item Value Reference Range Interpretation Comments Hepatitis B surface NON-REACTIVE NON-REACTIVE Ag (test code = 5196-1) RAC (test code = RAC) Performing Organization Information: Site ID: BEBA Name: [facility] Address: [address] [place] [address] Director: Rajinder Grant [facility] with reflex to [id number] 22:17:00 Test Item Value Reference Range Interpretation Comments RPR (test code = NON-REACTIVE NON-REACTIVE 43491-8) RAC (test code = Performing Organization RAC) Information: Site ID: RGA Name: [facility] Address: [address] [place] [address] Director: Rajinder Grant [facility] C virus (HCV), quantitative [id number] 22:17:00 Test Item Value Reference Interpretation Comments Range HCV RNA, <15 NOT DETECTED NOT DETECTED quantitative PCR IU/mL (test code = 88285-9) HCV viral log <1.18 NOT DETECTED NOT DETECTED This bhupendra t was (test code = Log IU/mL performed using 38958-1) Real-Time Polym erase [employer]. Reportable Rang e: 15 IU/mL to 100,00 0,000 IU/mL(1.18 Log IU/mL to 8.00 Log IU/ mL). The analytical performance characteristics of thisassay have been determined by [employer]. Th e modifications h ave not been cleare d or approved bythe FDA. This assay has been validated pursu ant to the CLIA regulations and is used for clinic al purposes. For m ore information on this test, go to:http://educa tion. [employer] /faq/YEC04i1(Th is link is being provided for informational/e ducat ional purposes only.) RAC (test code = Performing RAC) Organization Information: Site ID: IG Name: [facility] Address: [address] [place] [address] Director: Dr. Rajinder Grant [facility] C [id number] 22:17:00 Test Item Value Reference Interpretation Comments Range Hepatitis C Ab (test REACTIVE NON-REACTIVE A code = 98766-8) Signal/cutoff (test >11.00 See_Comment H Based o n this code = 88731-4) result, the sample will be testedf or [...] RAC) Organization Information: Site ID: RGA Name: [facility] Address: [address] [place] [address] Director: Rajinder Grant Lab Interpretation Abnormal (test code = 31046-4) [facility] type 1/2 combined Ab, [id number] 22:17:00 Test Item Value Reference Interpretation Comments Range HSV 1 IgM NEGATIVE (test code = 52615-9) HSV 2 IgM NEGATIVE REFERENCE RANG E: NEGATIVE HSV (test IgM is detectab le in serum code = from >90% of [facility] 49753-6) primary HSV inf ection. However, HSV Ig [...] performancechar acteristics have been deter mined by [facility].It has not been cleared or appr luis by FDA. This assay hasb een validated pursuant to the CLIA regulations and isused for clinical purpos es. RAC (test Performing code = Organization RAC) Information: Site ID: EZ Name: [facility], Address: [address] [place] [address] Director: Crista Camacho MD,PhD,BARI [facility]2 antigen/antibody, fourth generation, with reflexes 2022-02-11 22:17:00 Test Item Value Reference Range Interpretation Comments HIV NON-REACTIVE NON-REACTIVE HIV-1 antigen a nd antigen/ant HIV-1/HIV-2 ant ibodies ibody 4th were notdetecte d. There gen (test is no laborator y evidence code = of HIVinfection . PLEASE 21222-2) NOTE: This info rmation has been disclo [...] ad ditional information ple ase refer tohttp://educat ion.In[employer]/ faq/VQR894 (This link is b eing provided for informational/e ducational purposes only.) The performance of this assay has not been clinicallyvalid ated in patients less t lagunas 2 years old. RAC (test Performing code = RAC) Organization Information: Site ID: RGA Name: [facility] Address: [address] [place] [address] Director: Rajinder Grant [facility] and 2 specific Ab [id number] 22:17:00 Test Item Value Reference Interpretation Comments [...] ease refer to http://educatio nReza tDiagnostics.co m/faq/ CRG697 (This li nk is being provided for informational/e ducati onal purposes o nly.) RAC (test code = Performing RAC) Organization Information: Site ID: IG Name: [facility] Address: [address] [place] [address] Director: Dr. Rajinder Grant Lab Interpretation Abnormal (test code = 57182-5) [facility] B surface [id number] 22:17:00 Test Item Value Reference Range Interpretation Comments Hepatitis B surface NON-REACTIVE NON-REACTIVE Ag (test code = 5196-1) RAC (test code = RAC) Performing Organization Information: Site ID: RGA Name: [facility] Address: [address] [place] [address] Director: Rajinder Grant [facility] with reflex to [id number] 22:17:00 Test Item Value Reference Range Interpretation Comments RPR (test code = NON-REACTIVE NON-REACTIVE 88988-3) RAC (test code = Performing Organization RAC) Information: Site ID: RGA Name: [facility] Address: [address] [place] [address] Director: Rajinder Grant [facility] C virus (HCV), quantitative [id number] 22:17:00 Test Item Value Reference Interpretation Comments Range HCV RNA, <15 NOT DETECTED NOT DETECTED quantitative PCR IU/mL (test code = 40812-8) HCV viral log <1.18 NOT DETECTED NOT DETECTED This bhupendra t was (test code = Log IU/mL performed using 17178-8) Real-Time Polym erase [employer]. Reportable Rang e: 15 IU/mL to 100,00 0,000 IU/mL(1.18 Log IU/mL to 8.00 Log IU/ mL). The analytical performance characteristics of thisassay have been determined by [employer]. Th e modifications h ave not been cleare d or approved bythe FDA. This assay has been validated pursu ant to the CLIA regulations and is used for clinic al purposes. For m ore information on this test, go to:http://educa tion. [employer] /faq/ZQM36w6(Th is link is being provided for informational/e ducat ional purposes only.) RAC (test code = Performing [facility]) Organization Information: Site ID: IG Name: [facility] Address: [address] [place] [address] Director: Dr. Rajinder Grant [facility] C [id number] 22:17:00 Test Item Value Reference Interpretation Comments Range Hepatitis C Ab (test REACTIVE NON-REACTIVE A code = 04270-7) Signal/cutoff (test >11.00 See_Comment H Based o n this code = 57927-1) result, the sample will be testedf or [...] RAC) Organization Information: Site ID: RGA Name: [facility] Address: [address] [place] [address] Director: Rajinder Grant Lab Interpretation Abnormal (test code = 12753-7) [facility]2 combined Ab, [id number] 22:17:00 Test Item Value Reference Interpretation Comments Range HSV 1 IgM NEGATIVE (test code = 10018-1) HSV 2 IgM NEGATIVE REFERENCE RANG E: NEGATIVE HSV (test IgM is detectab le in serum code = from >90% of fl tracey 14653-7) primary HSV inf ection. However, HSV Ig [...] performancechar acteristics have been deter mined by [facility].It has not been cleared or appr luis by FDA. This assay hasb een validated pursuant to the CLIA regulations and isused for clinical purpos es. RAC (test Performing code = Organization RAC) Information: Site ID: EZ Name: [facility], Address: [address] [place] [address] Director: Crista Camacho MD,PhD,BARI [facility]anoHIV 1/2 antigen/antibody, fourth generation, with reflexes 2022-02-11 22:17:00 Test Item Value Reference Range Interpretation Comments HIV NON-REACTIVE NON-REACTIVE HIV-1 antigen a nd antigen/ant HIV-1/HIV-2 ant ibodies ibody 4th were notdetecte d. There gen (test is no laborator y evidence code = of HIVinfection . PLEASE 10590-1) NOTE: This info rmation has been disclo [...] ad ditional information ple ase refer tohttp://educat ion.[employer]/ faq/UGF675 (This link is b eing provided for informational/e ducational purposes only.) The performance of this assay has not been clinicallyvalid ated in patients less t lagunas 2 years old. RAC (test Performing code = RAC) Organization Information: Site ID: RGA Name: [facility] Address: [address] [place] [address] Director: Rajinder Grant [facility]anoHSV 1 and 2 specific Ab [id number] 22:17:00 Test Item Value Reference Interpretation Comments [...] ease refer to http://educatio n.Tri tDiagnostics.co m/faq/ LRU667 (This li nk is being provided for informational/e ducati onal purposes o nly.) RAC (test code = Performing RAC) Organization Information: Site ID: IG Name: [facility] Address: [address] [place] [address] Director: Dr. Rajinder Grant Lab Interpretation Abnormal (test code = 59243-3) [facility] surface [id number] 22:17:00 Test Item Value Reference Range Interpretation Comments Hepatitis B surface NON-REACTIVE NON-REACTIVE Ag (test code = 5196-1) RAC (test code = RAC) Performing Organization Information: Site ID: RGA Name: [facility] Address: [address] [place] [address] Director: Rajinder Grant [facility]anoR[facility] with reflex to [id number] 22:17:00 Test Item Value Reference Range Interpretation Comments RPR (test code = NON-REACTIVE NON-REACTIVE 75701-4) RAC (test code = Performing Organization RAC) Information: Site ID: RGA Name: [facility] Address: [address] [place] [address] Director: Rajinder Grant [facility] C virus (HCV), quantitative [id number] 22:17:00 Test Item Value Reference Interpretation Comments Range HCV RNA, <15 NOT DETECTED NOT DETECTED quantitative PCR IU/mL (test code = 31676-7) HCV viral log <1.18 NOT DETECTED NOT DETECTED This bhupendra t was (test code = Log IU/mL performed using 76011-7) Real-Time Polym erase [employer]Re[employer]. Reportable Rang e: 15 IU/mL to 100,00 0,000 IU/mL(1.18 Log IU/mL to 8.00 Log IU/ mL). The analytical performance characteristics of thisassay have been determined by [employer]. Th e modifications h ave not been cleare d or approved bythe FDA. This assay has been validated pursu ant to the CLIA regulations and is used for clinic al purposes. For m ore information on this test, go to:http://educa tion. [employer] /faq/CKL87p1(Th is link is being provided for informational/e ducat ional purposes only.) RAC (test code = Performing RAC) Organization Information: Site ID: IG Name: [facility] Address: [address] [place] [address] Director: Dr. Rajinder Grant [facility]anoHep[facility] C [id number] 22:17:00 Test Item Value Reference Interpretation Comments Range Hepatitis C Ab (test REACTIVE NON-REACTIVE A code = 33626-1) Signal/cutoff (test >11.00 See_Comment H Based o n this code = 76214-3) result, the sample will be testedf or [...] RAC) Organization Information: Site ID: RGA [facility]: [facility] Address: [address] [place] [address] Director: Rajinder Grant Lab Interpretation Abnormal (test code = 99583-9) [facility] type 1/2 combined Ab, [id number] 22:17:00 Test Item Value Reference Interpretation Comments Range HSV 1 IgM NEGATIVE (test code = 22146-9) HSV 2 IgM NEGATIVE REFERENCE RANG E: NEGATIVE HSV (test IgM is detectab le in serum code = from >90% of [place] tracey 44828-0) primary HSV inf ection. However, HSV Ig [...] performancechar acteristics have been deter mined by [employer].It has not been cleared or appr luis by FDA. This assay hasb een validated pursuant to the CLIA regulations and isused for clinical purpos es. RAC (test Performing code = Organization RAC) Information: Site ID: EZ Name: [facility], Address: [address] [place] [address] Director: Crista Camacho MD,PhD,BARI [facility]/antibody, fourth generation, with reflexes 2022-02-11 22:17:00 Test Item Value Reference Range Interpretation Comments HIV NON-REACTIVE NON-REACTIVE HIV-1 antigen a nd antigen/ant HIV-1/HIV-2 ant ibodies ibody 4th were notdetecte d. There gen (test is no laborator y evidence code = of HIVinfection . PLEASE 02673-1) NOTE: This info rmation has been disclo [...] ad ditional information ple ase refer tohttp://educat ion.Instant [employer]/ faq/OLA449 (This link is b eing provided for informational/e ducational purposes only.) The performance of this assay has not been clinicallyvalid ated in patients less t lagunas 2 years old. RAC (test Performing code = RAC) Organization Information: Site ID: RGRd Name: [facility] Address: [address] [place] [address] Director: Rajinder Grant [facility]anoHSV 1 and 2 specific Ab [id number] 22:17:00 Test Item Value Reference Interpretation Comments [...] ease refer to http://educatio n.Tri tDiagnostics.co m/faq/ VJZ887 (This li nk is being provided for informational/e ducati onal purposes o nly.) RAC (test code = Performing RAC) Organization Information: Site ID: IG Name: [facility] Address: [address] [place] [address] Director: Dr. Rajinedr Grant Lab Interpretation Abnormal (test code = 57700-4) [facility] surface [id number] 22:17:00 Test Item Value Reference Range Interpretation Comments Hepatitis B surface NON-REACTIVE NON-REACTIVE Ag (test code = 5196-1) RAC (test code = RAC) Performing Organization Information: Site ID: RGA Name: [facility] Address: [address] [place] [address] Director: Rajinder [facility] with reflex to [id number] 22:17:00 Test Item Value Reference Range Interpretation Comments RPR (test code = NON-REACTIVE NON-REACTIVE 44325-7) RAC (test code = Performing Organization RAC) Information: Site ID: BEBA Name: [facility] Address: [address] [place] [address] Director: Rajinder Grant [facility] C virus (HCV), quantitative [id number] 22:17:00 Test Item Value Reference Interpretation Comments Range HCV RNA, <15 NOT DETECTED NOT DETECTED quantitative PCR IU/mL (test code = 53296-2) HCV viral log <1.18 NOT DETECTED NOT DETECTED This bhupendra t was (test code = Log IU/mL performed using 15567-9) Real-Time Polym erase [employer]. Reportable Rang e: 15 IU/mL to 100,00 0,000 IU/mL(1.18 Log IU/mL to 8.00 Log IU/ mL). The analytical performance characteristics of thisassay have been determined by [employer]. Th e modifications h ave not been cleare d or approved bythe FDA. This assay has been validated pursu ant to the CLIA regulations and is used for clinic al purposes. For m ore information on this test, go to:http://educa tion. Qualt[employer] /faq/EWQ11i4(Th is link is being provided for informational/e ducat ional purposes only.) RAC (test code = Performing RAC) Organization Information: Site ID: IG Name: [facility] Address: [address] [place] [address] Director: Dr. Rajinder Grant [facility] C [id number] 22:17:00 Test Item Value Reference Interpretation Comments Range Hepatitis C Ab (test REACTIVE NON-REACTIVE A code = 18133-0) Signal/cutoff (test >11.00 See_Comment H Based o n this code = 51743-8) result, the sample will be testedf or [...] RAC) Organization Information: Site ID: RGA Name: [facility] Address: [address] [place] [address] Director: Rajinder Grant Lab Interpretation Abnormal (test code = 24812-8) [facility] 1/2 combined Ab, [id number] 22:17:00 Test Item Value Reference Interpretation Comments Range HSV 1 IgM NEGATIVE (test code = 52229-2) HSV 2 IgM NEGATIVE REFERENCE RANG E: NEGATIVE HSV (test IgM is detectab le in serum code = from >90% of [facility] 88180-3) primary HSV inf ection. However, HSV Ig [...] performancechar acteristics have been deter mined by [employer].It has not been cleared or appr luis by FDA. This assay hasb een validated pursuant to the CLIA regulations and isused for clinical purpos es. RAC (test Performing code = Organization RAC) Information: Site ID: EZ Name: [facility], Address: [address] [place] [address] Director: Crista Camacho MD,PhD,BARI [facility]anoHIV 1/2 antigen/antibody, fourth generation, with reflexes 2022-02-11 22:17:00 Test Item Value Reference Range Interpretation Comments HIV NON-REACTIVE NON-REACTIVE HIV-1 antigen a nd antigen/ant HIV-1/HIV-2 ant ibodies ibody 4th were notdetecte d. There gen (test is no laborator y evidence code = of HIVinfection . PLEASE 86956-5) NOTE: This info rmation has been disclo [...] ad ditional information ple ase refer tohttp://educat ion.Instant BioScan/ faq/KQE097 (This link is b eing provided for informational/e ducational purposes only.) The performance of this assay has not been clinicallyvalid ated in patients less t lagunas 2 years old. RAC (test Performing code = RAC) Organization Information: Site ID: RGA Name: [facility] Address: [address] [place] [address] Director: Rajinder Grant [place] [facility] and 2 specific Ab [id number] 22:17:00 Test Item Value Reference Interpretation Comments [...] additional information, pl ease refer to http://educatio n.Couple.[employer] /faq/FA Q118 (This link is being provided for informational/e ducatio nal purposes on ly.) RAC (test code = Performing RAC) Organization Information: Site ID: IG Name: [facility] Address: [address] [place] [address] Director: Dr. Rajinder Grant Lab Interpretation Abnormal (test code = 34385-7) [facility]Hethe [facility] centertis B surface [id number] 22:17:00 Test Item Value Reference Range Interpretation Comments Hepatitis B surface NON-REACTIVE NON-REACTIVE Ag (test code = 5196-1) RAC (test code = RAC) Performing Organization Information: Site ID: RGA Name: [facility] Address: [address] [place] [address] Director: Rajinder Grant [facility]anoRP with reflex to [id number] 22:17:00 Test Item Value Reference Range Interpretation Comments RPR (test code = NON-REACTIVE NON-REACTIVE 26026-8) RAC (test code = Performing Organization RAC) Information: Site ID: RGA Name: [facility] Address: [address] [place] [address] Director: Rajinder Grant [facility] C virus (HCV), quantitative [id number] 22:17:00 Test Item Value Reference Interpretation Comments Range HCV RNA, <15 NOT DETECTED NOT DETECTED quantitative PCR IU/mL (test code = 23621-9) HCV viral log <1.18 NOT DETECTED NOT DETECTED This bhupendra t was (test code = Log IU/mL performed using 46316-9) Real-Time Polym erase ChainReaction. Reportable Rang e: 15 IU/mL to 100,00 0,000 IU/mL(1.18 Log IU/mL to 8.00 Log IU/ mL). The analytical performance characteristics of thisassay have been determined by [employer]. Th e modifications h ave not been cleare d or approved bythe FDA. This assay has been validated pursu ant to the CLIA regulations and is used for clinic al purposes. For m ore information on this test, go to:http://educa tifarzana. [employer] /faq/AMH67t6(Th is link is being provided for informational/e ducat ional purposes only.) RAC (test code = Performing RAC) Organization Information: Site ID: IG Name: [facility] Address: [address] [place] [address] Director: Dr. Rajinder Grant [facility]anoHep[facility] C [id number] 22:17:00 Test Item Value Reference Interpretation Comments Range Hepatitis C Ab (test REACTIVE NON-REACTIVE A code = 88212-2) Signal/cutoff (test >11.00 See_Comment H Based o n this code = 01683-4) result, the sample will be testedf or [...] RAC) Organization Information: Site ID: RGA [facility]: [facility] Address: [address] [place] [address] Director: Rajinder Grant Lab Interpretation Abnormal (test code = 09994-2) [facility], [id number] 22:17:00 Test Item Value Reference Interpretation Comments Range HSV 1 IgM NEGATIVE (test code = 31091-1) HSV 2 IgM NEGATIVE REFERENCE RANG E: NEGATIVE HSV (test IgM is detectab le in serum code = from >90% of [facility] 30972-2) primary HSV inf ection. However, HSV Ig [...] performancechar acteristics have been deter mined by [employer].It has not been cleared or appr luis by FDA. This assay hasb een validated pursuant to the CLIA regulations and isused for clinical purpos es. RAC (test Performing code = Organization RAC) Information: Site ID: EZ Name: [facility], Address: [address] [place] [address] Director: Crista Camacho MD,PhD,BARI [facility]anoHIV 1/2 antigen/antibody, fourth generation, with reflexes 2022-02-11 22:17:00 Test Item Value Reference Range Interpretation Comments HIV NON-REACTIVE NON-REACTIVE HIV-1 antigen a nd antigen/ant HIV-1/HIV-2 ant ibodies ibody 4th were notdetecte d. There gen (test is no laborator y evidence code = of HIVinfection . PLEASE 75659-0) NOTE: This info rmation has been disclo [...] ad ditional information ple ase refer tohttp://educat ion.[employer]/ faq/XXA940 (This link is b eing provided for informational/e ducational purposes only.) The performance of this assay has not been clinicallyvalid ated in patients less t lagunas 2 years old. RAC (test Performing code = RAC) Organization Information: Site ID: RGA Name: [facility] Address: [address] [place] [address] Director: Rajinder [facility]HS[facility] 2 specific Ab [id number] 22:17:00 Test Item Value Reference Interpretation Comments [...] ease refer to http://educatio n.Ques tDiagnostics.co m/faq/ SPC463 (This li nk is being provided for informational/e ducati onal purposes o nly.) RAC (test code = Performing RAC) Organization Information: Site ID: IG Name: [facility] Address: [address] [place] [address] Director: Dr. Rajinder Grant Lab Interpretation Abnormal (test code = 67551-1) [facility] surface [id number] 22:17:00 Test Item Value Reference Range Interpretation Comments Hepatitis B surface NON-REACTIVE NON-REACTIVE Ag (test code = 5196-1) RAC (test code = RAC) Performing Organization Information: Site ID: RGA Name: [facility] Address: [address] [place] [address] Director: Rajinder Grant [facility] with reflex to [id number] 22:17:00 Test Item Value Reference Range Interpretation Comments RPR (test code = NON-REACTIVE NON-REACTIVE 79024-6) RAC (test code = Performing Organization RAC) Information: Site ID: RGA Name: [facility] Address: [address] [place] [address] Director: Rajinder Grant [facility] C virus (HCV), quantitative [id number] 22:17:00 Test Item Value Reference Interpretation Comments Range HCV RNA, <15 NOT DETECTED NOT DETECTED quantitative PCR IU/mL (test code = 84045-9) HCV viral log <1.18 NOT DETECTED NOT DETECTED This bhupendra t was (test code = Log IU/mL performed using 00085-5) Real-Time Polym erase ChainReaction. Reportable Rang e: 15 IU/mL to 100,00 0,000 IU/mL(1.18 Log IU/mL to 8.00 Log IU/ mL). The analytical performance characteristics of thisassay have been determined by [employer]. Th e modifications h ave not been cleare d or approved bythe FDA. This assay has been validated pursu ant to the CLIA regulations and is used for clinic al purposes. For m ore information on this test, go to:http://educa tion. [employer] /faq/XXA67y3(Th is link is being provided for informational/e ducat ional purposes only.) RAC (test code = Performing RAC) Organization Information: Site ID: IG Name: [facility] Address: [address] [place] [address] Director: Dr. Rajinder Grant [facility]anoHep[facility] C [id number] 22:17:00 Test Item Value Reference Interpretation Comments Range Hepatitis C Ab (test REACTIVE NON-REACTIVE A code = 91165-6) Signal/cutoff (test >11.00 See_Comment H Based o n this code = 51564-8) result, the sample will be testedf or [...] RAC) Organization Information: Site ID: RGA Name: [facility] Lab Address: [address] [place] [address] Director: Rajinder Grant Lab Interpretation Abnormal (test code = 26721-5) [facility]HS[facility] type 1/2 combined Ab, [id number] 22:17:00 Test Item Value Reference Interpretation Comments Range HSV 1 IgM NEGATIVE (test code = 85856-1) HSV 2 IgM NEGATIVE REFERENCE RANG E: NEGATIVE HSV (test IgM is detectab le in serum code = from >90% of [place] tracey 55403-0) primary HSV inf ection. However, HSV Ig [...] performancechar acteristics have been deter mined by [employer].It has not been cleared or appr luis by FDA. This assay hasb een validated pursuant to the CLIA regulations and isused for clinical purpos es. RAC (test Performing code = Organization RAC) Information: Site ID: EZ Name: [facility], Address: [address] [place] [address] Director: Crista Camacho MD,PhD,BARI [facility]/antibody, fourth generation, with reflexes 2022-02-11 22:17:00 Test Item Value Reference Range Interpretation Comments HIV NON-REACTIVE NON-REACTIVE HIV-1 antigen a nd antigen/ant HIV-1/HIV-2 ant ibodies ibody 4th were notdetecte d. There gen (test is no laborator y evidence code = of HIVinfection . PLEASE 23558-7) NOTE: This info rmation has been disclo [...] ad ditional information ple ase refer tohttp://educat ion.Rew[employer]/ faq/CTN888 (This link is b eing provided for informational/e ducational purposes only.) The performance of this assay has not been clinicallyvalid ated in patients less t lagunas 2 years old. RAC (test Performing code = RAC) Organization Information: Site ID: RGA Name: [facility] Address: [address] [place] [address] Director: Rajinder Grant [facility]anoHSV 1 and 2 specific Ab [id number] 22:17:00 Test Item Value Reference Interpretation Comments [...] establishedfor pediatric populations, immunocompromis ed patients,or omar lliy screening. For additional information, pl ease refer to http://educatio n.Ques tDiagnostics.co m/faq/ HVY304 (This li nk is being provided for informational/e ducati onal purposes o nly.) RAC (test code = Performing RAC) Organization Information: Site ID: IG Name: [facility] Address: [address] [place] [address] Director: Dr. Rajinder Grant Lab Interpretation Abnormal (test code = 41572-8) [facility]ano[facility] B surface [id number] 22:17:00 Test Item Value Reference Range Interpretation Comments Hepatitis B surface NON-REACTIVE NON-REACTIVE Ag (test code = 5196-1) RAC (test code = RAC) Performing Organization Information: Site ID: RGA Name: [facility] Address: [address] [place] [address] Director: Rajinder Grant [facility]anoRPR with reflex to [id number] 22:17:00 Test Item Value Reference Range Interpretation Comments RPR (test code = NON-REACTIVE NON-REACTIVE 34064-4) RAC (test code = Performing Organization RAC) Information: Site ID: BEBA Name: [facility] Address: [address] [place] [address] Director: Rajinder Grant [facility] C virus (HCV), quantitative [id number] 22:17:00 Test Item Value Reference Interpretation Comments Range HCV RNA, <15 NOT DETECTED NOT DETECTED quantitative PCR IU/mL (test code = 58410-2) HCV viral log <1.18 NOT DETECTED NOT DETECTED This bhupendra t was (test code = Log IU/mL performed using 09601-8) Real-Time Polym erase [employer]Reaction. Reportable Rang e: 15 IU/mL to 100,00 0,000 IU/mL(1.18 Log IU/mL to 8.00 Log IU/ mL). The analytical performance characteristics of thisassay have been determined by [employer]. Th e modifications h ave not been cleare d or approved bythe FDA. This assay has been validated pursu ant to the CLIA regulations and is used for clinic al purposes. For m ore information on this test, go to:http://educa tion. [employer] /faq/ZLT00l1( is link is being provided for informational/e ducat ional purposes only.) RAC (test code = Performing RAC) Organization Information: Site ID: IG Name: [facility] Address: [address] [place] [address] Director: Dr. Rajinder Grant [facility] C [id number] 22:17:00 Test Item Value Reference Interpretation Comments Range Hepatitis C Ab (test REACTIVE NON-REACTIVE A code = 88491-4) Signal/cutoff (test >11.00 <=1.00 H Based o n this code = 23679-2) result, the sample will be testedf or HCV RNA by a Nucleic Acid Amplification T est (NAAT)to determ ine if the patient has a current activeinfection . RAC (test code = Performing RAC) Organization Information: Site ID: RGRd Name: [facility] Lab Address: [address] [place] [address] Director: Rajinder Grant Lab Interpretation Abnormal (test code = 24951-6) [facility]HS[facility] 1/2 combined Ab, [id number] 22:17:00 Test Item Value Reference Interpretation Comments Range HSV 1 IgM NEGATIVE (test code = 60952-7) HSV 2 IgM NEGATIVE REFERENCE RANG E: NEGATIVE HSV (test IgM is detectab le in serum code = from >90% of [place] tracey 68201-6) primary HSV inf ection. However, HSV Ig [...] performancechar acteristics have been deter mined by [employer].It has not been cleared or appr luis by FDA. This assay hasb een validated pursuant to the CLIA regulations and isused for clinical purpos es. RAC (test Performing code = Organization RAC) Information: Site ID: EZ Name: [facility], Address: [address] [place] [address] Director: Crista Camacho MD,PhD,BRAI [facility]anoHIV 1/2 antigen/antibody, fourth generation, with reflexes 2022-02-11 22:17:00 Test Item Value Reference Range Interpretation Comments HIV NON-REACTIVE NON-REACTIVE HIV-1 antigen a nd antigen/ant HIV-1/HIV-2 ant ibodies ibody 4th were notdetecte d. There gen (test is no laborator y evidence code = of HIVinfection . PLEASE 47079-4) NOTE: This info rmation has been disclo [...] ad ditional information ple ase refer tohttp://educat ion.[employer]/ faq/XQJ921 (This link is b eing provided for informational/e ducational purposes only.) The performance of this assay has not been clinicallyvalid ated in patients less t lagunas 2 years old. RAC (test Performing code = RAC) Organization Information: Site ID: RGA Name: [facility] Address: [address] [place] [address] Director: Rajinder Grant [facility]anoHSV 1 and 2 specific Ab [id number] 22:17:00 Test Item Value Reference Interpretation Comments [...] additional information, pl ease refer to http://educatio n.Couple.[employer] /faq/FA Q118 (This link is being provided for informational/e ducatio nal purposes on ly.) RAC (test code = Performing RAC) Organization Information: Site ID: IG [facility]: [facility] Address: [address] [place] [address] Director: Dr. Rajinder Grant Lab Interpretation Abnormal (test code = 28362-4) [facility] surface [id number] 22:17:00 Test Item Value Reference Range Interpretation Comments Hepatitis B surface NON-REACTIVE NON-REACTIVE Ag (test code = 5196-1) RAC (test code = RAC) Performing Organization Information: Site ID: RGA Name: [facility] Address: [address] [place] [address] Director: Rajinder Grant [facility]anoRPR with reflex to [id number] 22:17:00 Test Item Value Reference Range Interpretation Comments RPR (test code = NON-REACTIVE NON-REACTIVE 90519-7) RAC (test code = Performing Organization RAC) Information: Site ID: RGA Name: [facility] Address: [address] [place] [address] Director: Rajinder Grant [facility] Point[facility]yd[facility] C virus (HCV), quantitative [id number] 22:17:00 Test Item Value Reference Interpretation Comments Range HCV RNA, <15 NOT DETECTED NOT DETECTED quantitative PCR IU/mL (test code = 23625-8) HCV viral log <1.18 NOT DETECTED NOT DETECTED This bhupendra t was (test code = Log IU/mL performed using 55637-5) Real-Time Polym erase [employer]. Reportable Rang e: 15 IU/mL to 100,00 0,000 IU/mL(1.18 Log IU/mL to 8.00 Log IU/ mL). The analytical performance characteristics of thisassay have been determined by [employer]. Th e modifications h ave not been cleare d or approved bythe FDA. This assay has been validated pursu ant to the CLIA regulations and is used for clinic al purposes. For m ore information on this test, go to:http://educa tion. [employer] /faq/QBT63a8(Th is link is being provided for informational/e ducat ional purposes only.) RAC (test code = Performing RAC) Organization Information: Site ID: IG Name: [facility] Address: [address] [place] [address] Director: Dr. Rajinder Grant [facility] C [id number] 22:17:00 Test Item Value Reference Interpretation Comments Range Hepatitis C Ab (test REACTIVE NON-REACTIVE A code = 15682-4) Signal/cutoff (test >11.00 <=1.00 H Based o n this code = 88559-6) result, the sample will be testedf or HCV RNA by a Nucleic Acid Amplification T est (NAAT)to determ ine if the patient has a current activeinfection . RAC (test code = Performing RAC) Organization Information: Site ID: RGA Name: [facility] Address: [address] [place] [address] Director: Rajinder Grant Lab Interpretation Abnormal (test code = 20619-1) [facility]/2 combined Ab, [id number] 22:17:00 Test Item Value Reference Interpretation Comments Range HSV 1 IgM NEGATIVE (test code = 54843-2) HSV 2 IgM NEGATIVE REFERENCE RANG E: NEGATIVE HSV (test IgM is detectab le in serum code = from >90% of [facility] 81076-4) primary HSV inf ection. However, HSV Ig [...] performancechar acteristics have been deter mined by [employer].It has not been cleared or appr luis by FDA. This assay hasb een validated pursuant to the CLIA regulations and isused for clinical purpos es. RAC (test Performing code = Organization RAC) Information: Site ID: EZ Name: [facility], Address: [address] [place] [address] Director: Crista Camacho MD,PhD,BARI [facility]anoHIV 1/2 antigen/antibody, fourth generation, with reflexes 2022-02-11 22:17:00 Test Item Value Reference Range Interpretation Comments HIV NON-REACTIVE NON-REACTIVE HIV-1 antigen a nd antigen/ant HIV-1/HIV-2 ant ibodies ibody 4th were notdetecte d. There gen (test is no laborator y evidence code = of HIVinfection . PLEASE 94444-0) NOTE: This info rmation has been disclo [...] ad ditional information ple ase refer tohttp://educat ion.[employer]/ faq/FQD935 (This link is b eing provided for informational/e ducational purposes only.) The performance of this assay has not been clinicallyvalid ated in patients less t lagunas 2 years old. RAC (test Performing code = RAC) Organization Information: Site ID: RGA Name: [facility] Address: [address] [place] [address] Director: Rajinder Grant [facility]anoHS[facility] 1 and 2 specific Ab [id number] 22:17:00 Test Item Value Reference Interpretation Comments [...] ease refer to http://educatio n.Ques tDiagnostics.co m/faq/ EZU180 (This li nk is being provided for informational/e ducati onal purposes o nly.) RAC (test code = Performing RAC) Organization Information: Site ID: IG Name: [facility] Lab Address: [address] [place] [address] Director: Dr. Rajinder Grant Lab Interpretation Abnormal (test code = 78468-1) [facility] surface [id number] 22:17:00 Test Item Value Reference Range Interpretation Comments Hepatitis B surface NON-REACTIVE NON-REACTIVE Ag (test code = 5196-1) RAC (test code = RAC) Performing Organization Information: Site ID: RGA Name: [facility] Address: [address] [place] [address] Director: Rajinder Grant [facility]anoRP with reflex to [id number] 22:17:00 Test Item Value Reference Range Interpretation Comments RPR (test code = NON-REACTIVE NON-REACTIVE 41819-7) RAC (test code = Performing Organization RAC) Information: Site ID: RGA Name: [facility] Address: [address] [place] [address] Director: Rajinder Grant [facility] C virus (HCV), quantitative [id number] 22:17:00 Test Item Value Reference Interpretation Comments Range HCV RNA, <15 NOT DETECTED NOT DETECTED quantitative PCR IU/mL (test code = 34938-3) HCV viral log <1.18 NOT DETECTED NOT DETECTED This bhupendra t was (test code = Log IU/mL performed using 86872-4) Real-Time Polym erase [employer]Reaction. Reportable Rang e: 15 IU/mL to 100,00 0,000 IU/mL(1.18 Log IU/mL to 8.00 Log IU/ mL). The analytical performance characteristics of thisassay have been determined by [employer]. Th e modifications h ave not been cleare d or approved bythe FDA. This assay has been validated pursu ant to the CLIA regulations and is used for clinic al purposes. For m ore information on this test, go to:http://educa dylon. [employer] /faq/RIF69k5(Th is link is being provided for informational/e ducat ional purposes only.) RAC (test code = Performing RAC) Organization Information: Site ID: IG [facility]: [facility] Address: [address] [place] [address] Director: Dr. Rajinder Grant [facility]anoHepatitis C [id number] 22:17:00 Test Item Value Reference Interpretation Comments Range Hepatitis C Ab (test REACTIVE NON-REACTIVE A code = 51738-7) Signal/cutoff (test >11.00 <=1.00 H Based o n this code = 65349-9) result, the sample will be testedf or HCV RNA by a Nucleic Acid Amplification T est (NAAT)to determ ine if the patient has a current activeinfection . RAC (test code = Performing RAC) Organization Information: Site ID: RGA Name: [facility] Address: [address] [place] [address] Director: Rajinder Grant Lab Interpretation Abnormal (test code = 92369-5) [facility]ano[facility] type 1/2 combined Ab, [id number] 22:17:00 Test Item Value Reference Interpretation Comments Range HSV 1 IgM NEGATIVE (test code = 95100-9) HSV 2 IgM NEGATIVE REFERENCE RANG E: NEGATIVE HSV (test IgM is detectab le in serum code = from >90% of [facility] 24856-2) primary HSV inf ection. However, HSV Ig [...] performancechar acteristics have been deter mined by [employer].It has not been cleared or appr luis by FDA. This assay hasb een validated pursuant to the CLIA regulations and isused for clinical purpos es. RAC (test Performing code = Organization RAC) Information: Site ID: EZ Name: [facility], Address: [address] [place] [address] Director: Crista Camacho MD,PhD,BARI [facility]anoHIV 1/2 antigen/antibody, fourth generation, with reflexes 2022-02-11 22:17:00 Test Item Value Reference Range Interpretation Comments HIV NON-REACTIVE NON-REACTIVE HIV-1 antigen a nd antigen/ant HIV-1/HIV-2 ant ibodies ibody 4th were notdetecte d. There gen (test is no laborator y evidence code = of HIVinfection . PLEASE 28443-0) NOTE: This info rmation has been disclo [...] ad ditional information ple ase refer tohttp://educat ion.[employer]/ faq/IYV106 (This link is b eing provided for informational/e ducational purposes only.) The performance of this assay has not been clinicallyvalid ated in patients less t lagunas 2 years old. RAC (test Performing code = RAC) Organization Information: Site ID: RGA Name: [facility] Address: [address] [place] [address] Director: Rajinder Grant [facility]anoHS[facility] 1 and 2 specific Ab [id number] 22:17:00 Test Item Value Reference Interpretation Comments [...] ease refer to http://educatio n.Ques tDiagnostics.co m/faq/ NJV669 (This li nk is being provided for informational/e ducati onal purposes o nly.) RAC (test code = Performing RAC) Organization Information: Site ID: IG Name: [facility] Address: [address] [place] [address] Director: Dr. Rajinder Grant Lab Interpretation Abnormal (test code = 73229-9) [facility] B surface [id number] 22:17:00 Test Item Value Reference Range Interpretation Comments Hepatitis B surface NON-REACTIVE NON-REACTIVE Ag (test code = 5196-1) RAC (test code = RAC) Performing Organization Information: Site ID: RGA Name: [facility] Address: [address] [place] [address] Director: Rajinder Grant [facility] with reflex to [id number] 22:17:00 Test Item Value Reference Range Interpretation Comments RPR (test code = NON-REACTIVE NON-REACTIVE 24609-0) RAC (test code = Performing Organization RAC) Information: Site ID: RGA Name: [facility] Address: [address] [place] [address] Director: Rajinder Grant [facility] C virus (HCV), quantitative [id number] 22:17:00 Test Item Value Reference Interpretation Comments Range HCV RNA, <15 NOT DETECTED NOT DETECTED quantitative PCR IU/mL (test code = 66133-1) HCV viral log <1.18 NOT DETECTED NOT DETECTED This bhupendra t was (test code = Log IU/mL performed using 92629-3) Real-Time Polym erase ChainReaction. Reportable Rang e: 15 IU/mL to 100,00 0,000 IU/mL(1.18 Log IU/mL to 8.00 Log IU/ mL). The analytical performance characteristics of thisassay have been determined by [employer] Th e modifications h ave not been cleare d or approved bythe FDA. This assay has been validated pursu ant to the CLIA regulations and is used for clinic al purposes. For m ore information on this test, go to:http://educa tion. [employer] /faq/NGL25v3(Th is link is being provided for informational/e ducat ional purposes only.) RAC (test code = Performing RAC) Organization Information: Site ID: IG Name: [facility] Address: [address] [place] [address] Director: Dr. Rajinder Grant [facility] [id number] 22:17:00 Test Item Value Reference Interpretation Comments Range Hepatitis C Ab (test REACTIVE NON-REACTIVE A code = 63122-5) Signal/cutoff (test >11.00 <=1.00 H Based o n this code = 33124-3) result, the sample will be testedf or HCV RNA by a Nucleic Acid Amplification T est (NAAT)to determ ine if the patient has a current activeinfection . RAC (test code = Performing RAC) Organization Information: Site ID: RGA [facility]: [facility] Address: [address] [place] [address] Director: Rajinder Grant Lab Interpretation Abnormal (test code = 12907-9) [facility]V type 1/2 combined Ab, [id number] 22:17:00 Test Item Value Reference Interpretation Comments Range HSV 1 IgM NEGATIVE (test code = 71102-1) HSV 2 IgM NEGATIVE REFERENCE RANG E: NEGATIVE HSV (test IgM is detectab le in serum code = from >90% of fl tracey 71501-3) primary HSV inf ection. However, HSV Ig [...] performancechar acteristics have been deter mined by [facility].It has not been cleared or appr luis by FDA. This assay hasb een validated pursuant to the CLIA regulations and isused for clinical purpos es. RAC (test Performing code = Organization RAC) Information: Site ID: EZ Name: [facility], Address: [address] [place] [address] Director: Crista Camacho MD,PhD,BARI [facility] RehabilitationHIV 1/2 antigen/antibody, fourth generation, with reflexes 2022-02-11 22:17:00 Test Item Value Reference Range Interpretation Comments HIV NON-REACTIVE NON-REACTIVE HIV-1 antigen a nd antigen/ant HIV-1/HIV-2 ant ibodies ibody 4th were notdetecte d. There gen (test is no laborator y evidence code = of HIVinfection . PLEASE 12024-1) NOTE: This info rmation has been disclo [...] ad ditional information ple ase refer tohttp://educat ion.[employer]/ faq/AXP063 (This link is b eing provided for informational/e ducational purposes only.) The performance of this assay has not been clinicallyvalid ated in patients less t lagunas 2 years old. RAC (test Performing code = RAC) Organization Information: Site ID: RGA Name: [facility] Address: [address] [place] [address] Director: Rajinder Grant [facility]anoHSV 1 and 2 specific Ab [id number] 22:17:00 Test Item Value Reference Interpretation Comments [...] ease refer to http://educatio n.Ques tDiagnostics.co m/faq/ KGX381 (This li nk is being provided for informational/e ducati onal purposes o nly.) RAC (test code = Performing RAC) Organization Information: Site ID: IG Name: [facility] Address: [address] [place] [address] Director: Dr. Rajinder Grant Lab Interpretation Abnormal (test code = 54466-1) [facility] pathology [id number] 15:02:28 Test Item Value Reference Range Interpretation Comments Case number (test code = [id number]) Surgical pathology See link below for report (test code = PDF Lab Report 2255) Result status (test code This is Final Report = [id number]) for [id number] [facility] pathology [id number] 15:02:28 Test Item Value Reference Range Interpretation Comments Case number (test code = [id number]) Surgical pathology See link below for report (test code = PDF Lab Report 2255) Result status (test code This is Final Report = [id number]) for [id number] [facility] pathology [id number] 15:02:28 Test Item Value Reference Range Interpretation Comments Case number (test code = [id number]) Surgical pathology See link below for report (test code = PDF Lab Report 2255) Result status (test code This is Final Report = [id number]) for [id number] [facility] pathology [id number] 15:02:28 Test Item Value Reference Range Interpretation Comments Case number (test code = [id number]) Surgical pathology See link below for report (test code = PDF Lab Report 2255) Result status (test code This is Final Report = [id number]) for [address] pathology [id number] 15:02:28 Test Item Value Reference Range Interpretation Comments Case number (test code = [id number]) Surgical pathology See link below for report (test code = PDF Lab Report 2255) Result status (test code This is Final Report = [id number]) for [address] pathology [id number] 15:02:28 Test Item Value Reference Range Interpretation Comments Case number (test code = [id number]) Surgical pathology See link below for report (test code = PDF Lab Report 2255) Result status (test code This is Final Report = [id number]) for [address] pathology [id number] 15:02:28 Test Item Value Reference Range Interpretation Comments Case number (test code = [id number]) Surgical pathology See link below for report (test code = PDF Lab Report 2255) Result status (test code This is Final Report = [id number]) for [address] pathology [id number] 15:02:28 Test Item Value Reference Range Interpretation Comments Case number (test code = [id number]) Surgical pathology See link below for report (test code = PDF Lab Report 2255) Result status (test code This is Final Report = 2801498) for [address] pathology [id number] 15:02:28 Test Item Value Reference Range Interpretation Comments Case number (test code = [id number]) Surgical pathology See link below for report (test code = PDF Lab Report 2255) Result status (test code This is Final Report = [id number]) for [id number] [facility] [id number] 15:02:28 Test Item Value Reference Range Interpretation Comments Case number (test code = [id number]) Surgical pathology See link below for report (test code = PDF Lab Report 2255) Result status (test code This is Final Report = 0213015) for [id number] [facility] qualitative [id number] 22:09:28 Test Item Value Reference Interpretation Comments Range Interpretation (test Negative results do not code = 1939418) preclude COVID-19 infection and should not be used asthe sole basis for treatment or other patient management decisions. Negativeresults must be combined with clinical observations, patient history, andepidemiological information. COVID-19 qualitative Not-Detected Not-Detected RT-PCR result (test code = 70213-3) COVID-19 qualitative See link below for PDF Case Number: RT-PCR (test code = Lab Report [id number] 7070) [facility] qualitative [id number] 22:09:28 Test Item Value Reference Interpretation Comments Range Interpretation (test Negative results do not code = 7618590) preclude COVID-19 infection and should not be used asthe sole basis for treatment or other patient management decisions. Negativeresults must be combined with clinical observations, patient history, andepidemiological information. COVID-19 qualitative Not-Detected Not-Detected RT-PCR result (test code = 49864-4) COVID-19 qualitative See link below for PDF Case Number: RT-PCR (test code = Lab Report [id number] 7070) [facility] qualitative [id number] 22:09:28 Test Item Value Reference Interpretation Comments Range Interpretation (test Negative results do not code = 6544296) preclude COVID-19 infection and should not be used asthe sole basis for treatment or other patient management decisions. Negativeresults must be combined with clinical observations, patient history, andepidemiological information. COVID-19 qualitative Not-Detected Not-Detected RT-PCR result (test code = 73973-4) COVID-19 qualitative See link below for PDF Case Number: RT-PCR (test code = Lab Report [id number] 7070) [facility] [id number] 22:09:28 Test Item Value Reference Interpretation Comments Range Interpretation (test Negative results do not code = 4500645) preclude COVID-19 infection and should not be used asthe sole basis for treatment or other patient management decisions. Negativeresults must be combined with clinical observations, patient history, andepidemiological information. COVID-19 qualitative Not-Detected Not-Detected RT-PCR result (test code = 34738-6) COVID-19 qualitative See link below for PDF Case Number: RT-PCR (test code = Lab Report [id number] 7070) [facility] qualitative [id number] 22:09:28 Test Item Value Reference Interpretation Comments Range Interpretation (test Negative results do not code = 3846721) preclude COVID-19 infection and should not be used asthe sole basis for treatment or other patient management decisions. Negativeresults must be combined with clinical observations, patient history, andepidemiological information. COVID-19 qualitative Not-Detected Not-Detected RT-PCR result (test code = 50725-7) COVID-19 qualitative See link below for PDF Case Number: RT-PCR (test code = Lab Report [id number] 7070) [facility] qualitative [id number] 22:09:28 Test Item Value Reference Interpretation Comments Range Interpretation (test Negative results do not code = 5610481) preclude COVID-19 infection and should not be used asthe sole basis for treatment or other patient management decisions. Negativeresults must be combined with clinical observations, patient history, andepidemiological information. COVID-19 qualitative Not-Detected Not-Detected RT-PCR result (test code = 54118-7) COVID-19 qualitative See link below for PDF Case Number: RT-PCR (test code = Lab Report [id number] 7070) [facility] [id number] 22:09:28 Test Item Value Reference Interpretation Comments Range Interpretation (test Negative results do not code = 7185511) preclude COVID-19 infection and should not be used asthe sole basis for treatment or other patient management decisions. Negativeresults must be combined with clinical observations, patient history, andepidemiological information. COVID-19 qualitative Not-Detected Not-Detected RT-PCR result (test code = 39004-1) COVID-19 qualitative See link below for PDF Case Number: RT-PCR (test code = Lab Report [id number] 7070) [facility] qualitative [id number] 22:09:28 Test Item Value Reference Interpretation Comments Range Interpretation (test Negative results do not code = 8600553) preclude COVID-19 infection and should not be used asthe sole basis for treatment or other patient management decisions. Negativeresults must be combined with clinical observations, patient history, andepidemiological information. COVID-19 qualitative Not-Detected Not-Detected RT-PCR result (test code = 23947-3) COVID-19 qualitative See link below for PDF Case Number: RT-PCR PDF (test Lab Report [id number] 1 code = 7070) [facility] qualitative [id number] 22:09:28 Test Item Value Reference Interpretation Comments Range Interpretation (test Negative results do not code = 7596941) preclude COVID-19 infection and should not be used asthe sole basis for treatment or other patient management decisions. Negativeresults must be combined with clinical observations, patient history, andepidemiological information. COVID-19 qualitative Not-Detected Not-Detected RT-PCR result (test code = 27720-3) COVID-19 qualitative See link below for PDF Case Number: RT-PCR PDF (test Lab Report [id number] 1 code = 7070) [facility] qualitative [id number] 22:09:28 Test Item Value Reference Interpretation Comments Range Interpretation (test Negative results do not code = 6367130) preclude COVID-19 infection and should not be used asthe sole basis for treatment or other patient management decisions. Negativeresults must be combined with clinical observations, patient history, andepidemiological information. COVID-19 qualitative Not-Detected Not-Detected RT-PCR result (test code = 09111-8) COVID-19 qualitative See link below for PDF Case Number: RT-PCR PDF (test Lab Report [id number] 1 code = 7070) [facility] [Presence] in Respiratory specimen by LATESHA with probe [id number] 17:09:28 Test Item Value Reference Range Interpretation Comments SARS-CoV-2 (COVID-19) RNA Not detected [Presence] in Respiratory specimen by LATESHA with probe detection (test code = 72464-9) Whether patient is employed in a Unknown healthcare setting (test code = 90889-6) Whether the patient has symptoms Unknown related to condition of interest (test code = 95470-4) Whether the patient was Unknown hospitalized for condition of interest (test code = 80807-0) Whether the patient was admitted Unknown to intensive care unit (ICU) for condition of interest (test code = 80350-5) Whether patient resides in a Unknown congregate care setting (test code = 81485-0) status (test code = Unknown 56800-0) Date and time of symptom onset Unknown (test code = 04406-0) [facility] LUFKINTHINPREP TIS AND HPV mRNA [id number] 20:30:00 Test Item Value Reference Interpretation Comments Range Clinical information None gi niurka (test code = 20875-5) Date of last NONE GIVEN menstrual period (test code = 8665-2) Prev. pap: (test code NONE G IVEN = 39698-2) Prev. bx: (test code NONE GI NIURKA = 36714-3) Source (test code = None giv en ) Statement of adequacy Satisf actory for (test code = 39682-3) evalua tion.Endocervi cony/transformat ion zone componentpresen t.Age and/or menstrua l status not prov ided Interpretation/result Negati ve for : (test code = intraepitheli al 15061-2) lesion or malignancy. Comment (test code = This Pa p test has ) been evaluated with [employer] technology. [employer], CT ( CP)CT (test code = 82082-6) screen ing location: [place] [address] [address], [facility] [address] 2 Comment (test code = EXPLANA TORY NOTE: 6699819) The Pap is a screening test for [...] Detected Not Detected Methodo logy: code = 35589-0) Transcriptio n-Mediat ed Amplificatio n This assay [...] For additional information, pl ease refer tohttp://educat ion.Pressi/ faq/MJH408e7(Th is link if provide d for information/edu catio nal purposes on ly.) JACEK (test code = RAC) Performing Organization Information: Site ID: TIM Name: [facility] Address: [address] [place] [address] Director: Dr. Rajinder Grant Site ID: RGA Name: [facility] Address: [address] [place] [address] Director: Rajinder Grant [facility]INPRE[facility]IS AND HPV mRNA [id number] 20:30:00 Test Item Value Reference Interpretation Comments Range Clinical information None gi niurka (test code = 80924-6) Date of last NONE GIVEN menstrual period (test code = 8665-2) Prev. pap: (test code NONE G IVEN = 03500-0) Prev. bx: (test code NONE GI NIURKA = 59353-1) Source (test code = None giv en ) Statement of adequacy Satisf actory for (test code = 11726-9) evalua tion.Endocervi cony/transformat ion zone componentpresen t.Age and/or menstrua l status not prov ided Interpretation/result Negati ve for : (test code = intraepitheli al 03556-5) lesion or malignancy. Comment (test code = This Pa p test has ) been evaluated with [employer] technology. [employer], CT ( CP)CT (test code = 95144-0) screen ing location: [address], [place] [address] 2 Comment (test code = EXPLANA TORY NOTE: 7594175) The Pap is a screening test for [...] Detected Not Detected Methodo logy: code = 95681-0) Transcriptio n-Mediat ed Amplificatio n This assay [...] For additional information, pl ease refer tohttp://educat ion.Pressi/ faq/XWH105y5(Th is link if provide d for information/edu catio nal purposes on ly.) JACEK (test code = RAC) Performing Organization Information: Site ID: IG Name: [facility] Address: [address] [place] [address] Director: Dr. Rajinder Grant Site ID: RGA Name: [facility] Address: [address] [place] [address] Director: Rajinder Grant [facility]IN[facility] TIS AND HPV mRNA [id number] 20:30:00 Test Item Value Reference Interpretation Comments Range Clinical information None gi niurka (test code = 03559-1) Date of last NONE GIVEN menstrual period (test code = 8665-2) Prev. pap: (test code NONE G IVEN = 64582-9) Prev. bx: (test code NONE GI NIURKA = 63271-1) Source (test code = None giv en 22071-0) Statement of adequacy Satisf actory for (test code = 72586-4) evalua tion.Endocervi cony/transformat ion zone componentpresen t.Age and/or menstrua l status not prov ided Interpretation/result Negati ve for : (test code = intraepitheli al 41650-9) lesion or malignancy. Comment (test code = This Pa p test has ) been evaluated with [employer] technology. [employer] CT ( CP)CT (test code = 05943-9) screen ing location: [place] [address] [address] [facility], [facility] [address] 2 Comment (test code = EXPLANA TORY NOTE: 2692166) The Pap is a screening test for [...] Detected Not Detected Methodo logy: code = 93912-3) Transcriptio n-Mediat ed Amplificatio n This assay [...] For additional information, pl ease refer tohttp://educat ion.Pressi/ faq/CSA960n3(Th is link if provide d for information/edu catio nal purposes on ly.) RAC (test code = RAC) Performing Organization Information: Site ID: IG Name: [facility] Address: [address] [place] [address] Director: Dr. Rajinder Grant Site ID: RGA Name: [facility] Address: [address] [place] [address] Director: Rajinder Grant [facility]INPRE[facility] TIS AND HPV mRNA [id number] 20:30:00 Test Item Value Reference Interpretation Comments Range Clinical information None gi niurka (test code = 05222-7) Date of last NONE GIVEN menstrual period (test code = 8665-2) Prev. pap: (test code NONE G IVEN = 70957-4) Prev. bx: (test code NONE GI NIURKA = 65977-5) Source (test code = [place] 47744-6) Statement of adequacy Satisf actory for (test code = 74788-4) evalua tion.Endocervi cony/transformat ion zone componentpresen t.Age and/or menstrua l status not prov ided Interpretation/result Negati ve for : (test code = intraepitheli al 63993-3) lesion or malignancy. Comment (test code = This Pa p test has ) been evaluated with computerassiste d technology. [employer], CT ( CP)CT (test code = 90654-7) screen ing location: [address], [place] [address] 2 Comment (test code = EXPLANA TORY NOTE: 5837045) The Pap is a screening test for [...] Detected Not Detected Methodo logy: code = 46986-5) Transcriptio n-Mediat ed Amplificatio n This assay [...] For additional information, pl ease refer tohttp://educat ion.Pressi/ faq/SGK330z8(Th is link if provide d for information/edu catio nal purposes on ly.) JACEK (test code = RAC) Performing Organization Information: Site ID: IG Name: [facility] Address: [address] [place] [address] Director: Dr. Rajinder Grant Site ID: RGA Name: [facility] Address: [address] [place] [address] Director: Rajinder Grant [facility] TIS AND HPV mRNA [id number] 20:30:00 Test Item Value Reference Interpretation Comments Range Clinical information None gi niurka (test code = 04622-4) Date of last NONE GIVEN menstrual period (test code = 8665-2) Prev. pap: (test code NONE G IVEN = 85967-3) Prev. bx: (test code NONE GI NIURKA = 20096-8) Source (test code = None giv en 06935-5) Statement of adequacy Satisf actory for (test code = 08380-9) evalua tion.Endocervi cony/transformat ion zone componentpresen t.Age and/or menstrua l status not prov ided Interpretation/result Negati ve for : (test code = intraepitheli al 11774-5) lesion or malignancy. Comment (test code = This Pa p test has ) been evaluated with computerassiste d technology. [employer], CT ( CP)CT (test code = 90523-4) screen ing location: [facility] [address] [place] [address], [place] [address] 2 Comment (test code = EXPLANA TORY NOTE: 7758150) The Pap is a screening test for [...] Detected Not Detected Methodo logy: code = 79499-6) Transcriptio n-Mediat ed Amplificatio n This assay [...] For additional information, pl ease refer tohttp://educat ion.Pressi/ faq/MMW835u3(Th is link if provide d for information/edu catio nal purposes on ly.) JACEK (test code = RAC) Performing Organization Information: Site ID: TIM Name: [facility] Address: [address] [place] [address] Director: Dr. Rajinder Grant Site ID: RGA Name: [facility] Address: [address] [place] [address] Director: Rajinder Grant [facility] TIS AND HPV mRNA [id number] 20:30:00 Test Item Value Reference Interpretation Comments Range Clinical information None gi niurka (test code = 73390-1) Date of last NONE GIVEN menstrual period (test code = 8665-2) Prev. pap: (test code NONE G IVEN = 77750-1) Prev. bx: (test code NONE GI NIURKA = 42211-3) Source (test code = None giv en ) Statement of adequacy Satisf actory for (test code = 66300-4) evalua tion.Endocervi cony/transformat ion zone componentpresen t.Age and/or menstrua l status not prov ided Interpretation/result Negati ve for : (test code = intraepitheli al 91269-1) lesion or malignancy. Comment (test code = This Pa p test has ) been evaluated with Personal Development Bureau[employer] d technology. [employer], CT ( CP)CT (test code = 05486-4) screen ing location: [address], [place] [address] 2 Comment (test code = EXPLANA TORY NOTE: 2359055) The Pap is a screening test for [...] Detected Not Detected Methodo logy: code = 23610-0) Transcriptio n-Mediat ed Amplificatio n This assay [...] For additional information, pl ease refer tohttp://educat ion.[employer] .[employer]/ faq/GXN711b2(Th is link if provide d for information/edu catio nal purposes on ly.) RAC (test code = RAC) Performing Organization Information: Site ID: IG Name: [facility] Address: [address] [place] [address] Director: Dr. Rajinder Grant Site ID: RGA Name: [facility] Address: [address] [place] [address] Director: Rajinder Grant [facility] AND HPV mRNA E6/[id number] 20:30:00 Test Item Value Reference Interpretation Comments Range Clinical information None gi niurka (test code = 48891-4) Date of last NONE GIVEN menstrual period (test code = 8665-2) Prev. pap: (test code NONE G IVEN = 08930-7) Prev. bx: (test code NONE GI NIURKA = 57355-2) Source (test code = None giv en 84189-5) Statement of adequacy Satisf actory for (test code = 39611-1) evalua tion.Endocervi cony/transformat ion zone componentpresen t.Age and/or menstrua l status not prov ided Interpretation/result Negati ve for : (test code = intraepitheli al 42508-5) lesion or malignancy. Comment (test code = This Pa p test has ) been evaluated with [employer] d technology. Flumer NATO, CT ( CP)CT (test code = 12561-2) screen ing location: [place] [address] [facility] [place] [address] 2 Comment (test code = EXPLANA TORY NOTE: 4384927) The Pap is a screening test for [...] Detected Not Detected Methodo logy: code = 37943-9) Transcriptio n-Mediat ed Amplificatio n This assay [...] For additional information, pl ease refer tohttp://educat ion.Pressi/ faq/MNN848r9(Th is link if provide d for information/edu catio nal purposes on ly.) RAC (test code = RAC) Performing Organization Information: Site ID: IG Name: [facility] Address: [address] [place] [address] Director: Dr. Rajinder Grant Site ID: RGA Name: [facility] Address: [address] [place] [address] Director: Rajinder Grant [facility]IS AND HPV mRNA [id number]/[id number] 20:30:00 Test Item Value Reference Interpretation Comments Range Clinical information None gi niurka (test code = 69061-7) Date of last NONE GIVEN menstrual period (test code = 8665-2) Prev. pap: (test code NONE G IVEN = 14756-3) Prev. bx: (test code NONE GI NIURKA = 11165-2) Source (test code = None giv en ) Statement of adequacy Satisf actory for (test code = 07453-6) evalua tion.Endocervi cony/transformat ion zone componentpresen t.Age and/or menstrua l status not prov ided Interpretation/result Negati ve for : (test code = intraepitheli al 46327-4) lesion or malignancy. Comment (test code = This Pa p test has ) been evaluated with computerassiste d technology. Flumer NATO CT ( CP)CT (test code = 79985-0) screen ing location: [address], [place] [address] 2 Comment (test code = EXPLANA TORY NOTE: 2807704) The Pap is a screening test for [...] Detected Not Detected Methodo logy: code = 16631-8) Transcriptio n-Mediat ed Amplificatio n This assay [...] For additional information, pl ease refer tohttp://educat ion.Pressi/ faq/DCA497z5(Th is link if provide d for information/edu catio nal purposes on ly.) JACEK (test code = RAC) Performing Organization Information: Site ID: IG Name: [facility] Address: [address] [place] [address] Director: Dr. Rajinder Grant Site ID: RGA Name: [facility] Address: [address] [place] [address] Director: Rajinder Grant [facility]IN[facility] TIS AND HPV mRNA E6/[id number] 20:30:00 Test Item Value Reference Interpretation Comments Range Clinical information None gi niurka (test code = 76132-8) Date of last NONE GIVEN menstrual period (test code = 8665-2) Prev. pap: (test code NONE G IVEN = 57181-4) Prev. bx: (test code NONE GI NIURKA = 73644-7) Source (test code = [place] 63529-5) Statement of adequacy Satisf actory for (test code = 75551-7) evalua tion.Endocervi cony/transformat ion zone componentpresen t.Age and/or menstrua l status not prov ided Interpretation/result Negati ve for : (test code = intraepitheli al 94861-5) lesion or malignancy. Comment (test code = This Pa p test has ) been evaluated with computerassiste d technology. Flumer NATO CT ( CP)CT (test code = 44161-8) screen ing location: [facility] [address] [place] [address], [place] [address] Comment (test code = EXPLANA TORY NOTE: 6801195) The Pap is a screening test for [...] Detected Not Detected Methodo logy: code = 96709-2) Transcriptio n-Mediat ed Amplificatio n This assay [...] For additional information, pl ease refer tohttp://educat ion.Pressi/ faq/HUI996v4(Th is link if provide d for information/edu catio nal purposes on ly.) JACEK (test code = RAC) Performing Organization Information: Site ID: TIM Name: [facility] Address: [address] [place] [address] Director: Dr. Rajinder Grant Site ID: RGA Name: [facility] Address: [address] [place] [address] Director: Rajinder Grant [facility]IN[facility] TIS AND HPV mRNA [id number]/[id number] 20:30:00 Test Item Value Reference Interpretation Comments Range Clinical information None gi niurka (test code = 93101-1) Date of last NONE GIVEN menstrual period (test code = 8665-2) Prev. pap: (test code NONE G IVEN = 12633-9) Prev. bx: (test code NONE GI NIURKA = 88666-5) Source (test code = None giv en ) Statement of adequacy Satisf actory for (test code = 90836-4) evalua tion.Endocervi cony/transformat ion zone componentpresen t.Age and/or menstrua l status not prov ided Interpretation/result Negati ve for : (test code = intraepitheli al 61370-9) lesion or malignancy. Comment (test code = This Pa p test has ) been evaluated with Personal Development Bureauiste d technology. Flumer [employer], CT ( CP)CT (test code = 41575-6) screen ing location: [address], [place] [address] 2 Comment (test code = EXPLANA TORY NOTE: 1912296) The Pap is a screening test for [...] Detected Not Detected Methodo logy: code = 02810-3) Transcriptio n-Mediat ed Amplificatio n This assay [...] For additional information, pl ease refer tohttp://educat ion.Pressi/ faq/SLO469t1(Th is link if provide d for information/edu catio nal purposes on ly.) RAC (test code = RAC) Performing Organization Information: Site ID: IG Name: [facility] Address: [address] [place] [address] Director: Dr. Rajinder Grant Site ID: RGA Name: [facility] Address: [address] [place] [address] Director: Rajinder Grant [facility] 12 [id number] 18:14:37 Test Item Value Reference Range Interpretation Comments Ventricular rate (test code = 253) Atrial rate (test code = 255) WV interval (test code = 266) QRSD interval [...] of 07-NOV-2021 12:57,-No significant change was found- [address]2022-09-01 18:14:37 Test Item Value Reference Range Interpretation Comments Ventricular rate (test code = 253) Atrial rate (test code = 255) WV interval (test code = 266) QRSD interval [...] of 07-NOV-2021 12:57,-No significant change was found- [address]2022-09-01 18:14:37 Test Item Value Reference Range Interpretation Comments Ventricular rate (test code = 253) Atrial rate (test code = 255) WV interval (test code = 266) QRSD interval [...] of 07-NOV-2021 12:57,-No significant change was found- [facility] DvhyqddnSPWV-NcJ-8 (COVID-19) RNA [Presence] in Respiratory specimen by LATESHA with probe [id number] 21:57:49 Test Item Value Reference Range Interpretation Comments SARS-CoV-2 (COVID-19) RNA [Presence] Detected in Respiratory specimen by LATESHA with probe detection (test code = 78008-2) Whether patient is employed in a Unknown healthcare setting (test code = 18142-1) Whether the patient has symptoms Unknown related to condition of interest (test code = 36369-1) Whether the patient was hospitalized Unknown for condition of interest (test code = 90060-1) Whether the patient was admitted to Unknown intensive care unit (ICU) for condition of interest (test code = 69676-3) Whether patient resides in a Unknown congregate care setting (test code = 01170-9) status (test code = Unknown 51562-9) Date and time of symptom onset (test Unknown code = 29012-0) [facility] function [id number] 18:40:00 Test Item Value Reference Range Interpretation [...] 8) ALT (test code = 14 U/L 10-08 1742-6) WILDA (test code = FASTING: UNKNOWN WILDA) RAC (test code = Performing RAC) Organization Information: Site ID: KATERINA Name: [facility] Address: [address] [place] [address] Director: Odessa Girma [facility] [id number] 18:40:00 Test Item Value Reference Range Interpretation [...] RAC) Organization Information: Site ID: BEBA Name: [facility] Address: [address] [place] [address] Director: Rajinder Grant [facility] function [id number] 18:40:00 Test Item Value Reference Range Interpretation [...] RAC) Organization Information: Site ID: BEBA Name: [facility] Address: [address] [place] [address] Director: Rajinder Lam[facility]Av[facility] HospitalHepatic function [id number] 18:40:00 Test Item Value Reference Range Interpretation [...] RAC) Organization Information: Site ID: RGA Name: [facility] Address: [address] [place] [address] Director: Rajinder LamarAv[facility] HospitalHepatic function [id number] 18:40:00 Test Item Value Reference Range Interpretation [...] RAC) Organization Information: Site ID: RGA Name: [facility] Address: [address] [place] [address] Director: [facility] [id number] 18:40:00 Test Item Value Reference Range Interpretation [...] 1919-8) ALT (test code = 14 U/L 10-082-6) WILDA (test code = FASTING: UNKNOWN WILDA) RAC (test code = Performing RAC) Organization Information: Site ID: RGA Name: [facility] Address: [address] [place] [address] Director: Odessa Girma [facility]Sal[facility] CenterHepatic function [id number] 18:40:00 Test Item Value Reference Range Interpretation [...] RAC) Organization Information: Site ID: RGA Name: [facility] Address: [address] [place] [address] Director: Odessa Girma [facility]RudySal[facility] CenterHepatic function [id number] 18:40:00 Test Item Value Reference Range Interpretation [...] RAC) Organization Information: Site ID: RGA Name: [facility] Address: [address] [place] [address] Director: [facility] function [id number] 18:40:00 Test Item Value Reference Range Interpretation Comments Protein (test code 6.6 g/dL 6.1-8.1 = 2885-2) Albumin, S (test 4.1 g/dL 3.6-5.1 code = 7) Globulin, total 2.5 See_Comment [Automated (test code [...] RAC) Organization Information: Site ID: RGA Name: [facility] Address: [address] [place] [address] Director: Rajinder WardKettering Health Main CampusHepatic function [id number] 18:40:00 Test Item Value Reference Range Interpretation [...] = Performing RAC) Organization Information: Site ID: BBEA Name: [facility] Address: [address] [place] [address] Director: Rajinder KiddPutnam County HospitalARS-CoV-2 (COVID-19) RNA [Presence] in Respiratory specimen by LATESHA with probe [id number] 20:46:09 Test Item Value Reference Range Interpretation Comments SARS-CoV-2 (COVID-19) RNA Not detected [Presence] in Respiratory specimen by LATESHA with probe detection (test code = 79964-9) Whether patient is employed in a Unknown healthcare setting (test code = 06963-0) Whether the patient has symptoms Unknown related to condition of interest (test code = 78897-1) Whether the patient was Unknown hospitalized for condition of interest (test code = 32428-6) Whether the patient was admitted Unknown to intensive care unit (ICU) for condition of interest (test code = 94203-9) Whether patient resides in a Unknown congregate care setting (test code = 97577-1) status (test code = Unknown 36705-2) Date and time of symptom onset Unknown (test code = 18414-5) [facility] CenterThy[facility] stimulating [id number] 05:23:00 Test Item Value Reference Range Interpretation Comments TSH (test code mIU/L Reference Ra nge > = 3016-3) or = 20 Years 0.40-4.50 Range s First trimester 0.26-2.66 Secon d trimester 0.55-2.73 Third trimester 0.43-2.91 RAC (test code Performing = RAC) Organization Information: Site ID: RGA Name: [facility] Address: [address] [place] [address] Director: Rajinder Girma [facility]Av[facility] HospitalThyroid stimulating [id number] 05:23:00 Test Item Value Reference Range Interpretation Comments TSH (test code mIU/L Reference Ra nge > = 3016-3) or = 20 Years 0.40-4.50 Range s First trimester 0.26-2.66 Secon d trimester 0.55-2.73 Third trimester 0.43-2.91 RAC (test code Performing = RAC) Organization Information: Site ID: BEBA Name: [facility] Address: [address] [place] [address] Director: Rajinder Grant [facility]2022-06-11 05:23:00 Test Item Value Reference Range Interpretation Comments TSH (test code mIU/L Reference Ra nge > = 3016-3) or = 20 Years 0.40-4.50 Range s First trimester 0.26-2.66 Secon d trimester 0.55-2.73 Third trimester 0.43-2.91 RAC (test code Performing = RAC) Organization Information: Site ID: KATERINA Name: [facility] Address: [address] [place] [address] Director: [facility]2022-[facility]-11 05:23:00 Test Item Value Reference Range Interpretation Comments TSH (test code mIU/L Reference Ra nge > = 3016-3) or = 20 Years 0.40-4.50 Range s First trimester 0.26-2.66 Secon d trimester 0.55-2.73 Third trimester 0.43-2.91 RAC (test code Performing = RAC) Organization Information: Site ID: RGA Name: [facility] Address: [address] [place] [address] Director: Rajinder Grant [facility] [id number] 05:23:00 Test Item Value Reference Range Interpretation Comments TSH (test code mIU/L Reference Ra nge > = 3016-3) or = 20 Years 0.40-4.50 Range s First trimester 0.26-2.66 Secon d trimester 0.55-2.73 Third trimester 0.43-2.91 RAC (test code Performing = RAC) Organization Information: Site ID: RGA Name: [facility] Address: [address] [place] [address] Director: Rajinder Grant [facility] [id number] 05:23:00 Test Item Value Reference Range Interpretation Comments TSH (test code mIU/L Reference Ra nge > = 3016-3) or = 20 Years 0.40-4.50 Range s First trimester 0.26-2.66 Secon d trimester 0.55-2.73 Third trimester 0.43-2.91 RAC (test code Performing = RAC) Organization Information: Site ID: RGA Name: [facility] Address: [address] [place] [address] Director: Raj[facility] Hospital[facility] [id number] 05:23:00 Test Item Value Reference Range Interpretation Comments TSH (test code 1.97 mIU/L Reference Ra nge > = 3016-3) or = 20 Years 0.40-4.50 Range s First trimester 0.26-2.66 Secon d trimester 0.55-2.73 Third trimester 0.43-2.91 RAC (test code Performing = RAC) Organization Information: Site ID: A Name: [facility] Address: [address] [place] [address] Director: Rajinder Rayo [facility]2022-06-11 05:23:00 Test Item Value Reference Range Interpretation Comments TSH (test code 1.97 mIU/L Reference Ra nge > = 3016-3) or = 20 Years 0.40-4.50 Range s First trimester 0.26-2.66 Secon d trimester 0.55-2.73 Third trimester 0.43-2.91 RAC (test code Performing = RAC) Organization Information: Site ID: A Name: [facility] Address: [address] [place] [address] Director: [facility] [id number] 05:23:00 Test Item Value Reference Range Interpretation Comments TSH (test code 1.97 mIU/L Reference Ra nge > = 3016-3) or = 20 Years 0.40-4.50 Range s First trimester 0.26-2.66 Secon d trimester 0.55-2.73 Third trimester 0.43-2.91 RAC (test code Performing = RAC) Organization Information: Site ID: RGA Name: [facility] Address: [address] [place] [address] Director: Odessa Girma [facility] HospitalThyroid stimulating [id number] 05:23:00 Test Item Value Reference Range Interpretation Comments TSH (test code 1.97 mIU/L Reference Ra nge > = 3016-3) or = 20 Years 0.40-4.50 Range s First trimester 0.26-2.66 Secon d trimester 0.55-2.73 Third trimester 0.43-2.91 RAC (test code Performing = RAC) Organization Information: Site ID: RGA Name: [facility] Address: [address] [place] [address] Director: Odessa Girma [facility] HospitalUA RFLX MICR CULT IF [id number] 18:48:00 Test Item Value Reference Range Interpretation [...] LACT) 0.7 mmol/L 0.7-2.0 N LIVER FUNCTION [id number] 15:14:00 Test Item Value Reference Range Interpretation [...] U/L 38-126 N (test code = ALKP) [id number] 15:14:00 Test Item Value Reference Range Interpretation [...] ~~~~~~~~~~~~ ~~~~~~~~~~~~~~~ ~~~~~~~~~~~~ ~~~~~~~~~~~~~~~ ~ BASIC METABOLIC [id number] 15:14:00 Test Item Value Reference Range Interpretation [...] = HEMINDEX) - CT ABD PELVIS W/O [id number] 14:53:00 [facility] 1970 Sex: F FAX: Debo Gutierrez [place]: St: REG Name: HERSON JACKSON [facility] : 1970 Age/S: 51/F [address] Unit: [id number] Loc: [place] [address] Phys: Debo Gutierrez Acct: [id number] Dis Date: Status: REG ER PHONE #: [phone] Exam Date: 08/08/2021 7792 FAX #: [phone] Reason: flank pain EXAMS: CPT CODE: [id number] CT ABD PELVIS W/O CONT 07045 EXAM: CT abdomen and pelvis without contrast [...] to lower aspect compatible with PAGE 1 Sig kady Report (CONTINUED) FAX: Debo Gutierrez [place]: St: REG Name: HERSON JACKSON [facility] : 1970 Age/S: 51/F [address] Unit: [id number] Loc: [place] [address] Phys: Debo Gutierrez Acct: [id number] Dis Date: Status: REG ER PHONE #: [phone] Exam Date: 08/08/2021 0205 FAX #: Reason: flank pain EXAMS: CPT CODE: [id number] CT ABD PELVIS W/O CONT 94415 (Continued) nephrolithiasis . Evaluation of the bladder [...] disease. RECOMMENDATIONS: None. Internal Coding only:B3 at 7318 Reported and signed by: Sandro Molina MD PAGE 2 Signed Report (CONTINUED) FAX: Debo Gutierrez [place]: St: REG Name: HERSON JACKSON [facility] :1970 Age/S: 51/F [address] Unit: [id number] Loc: [place] [address] Phys: Debo Gutierrez Acct: [id number] Dis Date: Status: REG ER PHONE #: [phone] Exam Date: 08/08/2021 1435 FAX #: [phone] Reason: flank pain EXAMS: CPT CODE: [id number] CT ABD PELVIS W/O CONT 18872 (Continued) CC: Debo Gutierrez Technologist: Debo Ortiz; SCOTT BENAVIDES Trnscrd Dt/Tm: 08/08/2021 (8303) [email or web address] Orig Print D/T: S: 08/08/2021 (8916 PAGE 3 Signed ReportCBC W/AUTO [id number] 14:21:00 Test Item Value Reference Range Interpretation [...] 3/uL 0.0-0.1 N - XR CHEST 1 [id number] 13:50:00 [facility] : 1970 Sex: F FAX: Debo Gutierrez [place]: St: PRE Name: HERSON JACKSON [facility] : 1970 Age/S: 51/F [address] Unit #: [id number] Loc: [place] [address] Phys: Debo Gutierrez Acct: [id number] Dis Date:Status: PRE ER PHONE #: [phone] Exam Date: 08/08/2021 1340 FAX #: [phone] Reason: CODE SEPSIS EXAMS: CPT CODE: [id number] XR CHEST 1 V 45121 CHEST 1 VIEW: INDICATION: CODE SEPSIS COMPARISON: [...] GILLIS; STUDENT 2ND YEAR Trnscrd Date/Time/By: 08/08/2021 (1270) : By: [email or web address] PAGE 1 Signed Report FAX: Debo Gutierrez [place]: St: PRE -- Name: HERSON JACKSON [facility] : 1970 Age/S: 51/F [address] Unit #: [id number] Loc: [place] [address] Phys: Debo Gutierrez Acct: [id number] Dis Date: Status: PRE ER PHONE #: [phone] Exam Date: 08/08/2021 1340 FAX #: [phone] Reason: CODE SEPSIS EXAMS: CPT CODE: [id number] XR CHEST 1 V 38852 (Continued) Orig Print D/T: S: 08/08/2021 (4170) PAGE 2 Signed ReportTHINPREP TIS PAP AND HPV mRNA E6/E7 REFLEX HPV 16,18/45 2021-06-19 18:43:00 Test Item Value Reference Interpretation Comments Range Clinical information None gi niurka (test code = 94836-0) Date of last NONE GIVEN menstrual period (test code = 8665-2) Prev. pap: (test code NONE G IVEN = 32462-6) Prev. bx: (test code NONE GI NIURKA = 37196-4) Source (test code = [place] 38050-6) Statement of adequacy Satisf actory for (test code = 25989-5) evalua tion.Endocervi cony/transformat ion zone componentpresen t.Age and/or menstrua l status not prov ided Interpretation/result Negati ve for : (test code = intraepitheli al 70406-4) lesion or malignancy. Comment (test code = This Pa p test has ) been evaluated with computerassiste d technology. Review PMT, CT(ASCP)CT dipper operator screening l ocation: (test code = 22169-7) [facility] [address], [place] [address] 2 Comment (test code = EXPLANA NONA NOTE: 3624542) The Pap is a screening test for [...] Detected Not Detected Methodo logy: code = 62940-5) Transcriptio n-Mediat ed Amplificatio n This assay dete cts E6/E7 viral messenger RNA ( mRNA) from 14high-ris k HPV types (16,18,31,33,35 ,39,4 5,51,52,56,58,5 9,66, 68). The analyt ical performance characteristics of thisassay have been determined by [employer]The modifications h ave not been cleare d or approvedby the FDA. This assay has been validated pursu antto the CLIA regula tions and is used forclinical purposes. For additional information, pl ease refer tohttp://educat ion.[employer] .com/ faq/JVJ276g8(Th is link if provide d for information/edu catio nal purposes on ly.) RAC (test code = RAC) Performing Organization Information: Site ID: IG Name: [facility] Address: [address] [place] [address] Director: Dr. Rajinder Grant Site ID: RGA Name: [facility] Address: [address] [place] [address] Director: Rajinder Grant [facility] AND HPV mRNA E6/E7 REFLEX HPV 16,18/45 2021-06-19 18:43:00 Test Item Value Reference Interpretation Comments Range Clinical information None gi niurka (test code = 63049-5) Date of last NONE GIVEN menstrual period (test code = 8665-2) Prev. pap: (test code NONE G IVEN = 88649-3) Prev. bx: (test code NONE GI NIURKA = 15744-6) Source (test code = [place] en 66011-6) Statement of adequacy Satisf actory for (test code = 59336-8) evalua tion.Endocervi cony/transformat ion zone componentpresen t.Age and/or menstrua l status not prov ided Interpretation/result Negati ve for : (test code = intraepitheli al 02398-9) lesion or malignancy. Comment (test code = This Pa p test has ) been evaluated with computerassiste d technology. Review PMT, CT(ASCP)CT dipper operator screening l ocation: (test code = 96814-2) [facility] [address], [facility] [address] 2 Comment (test code = EXPLANA TORY NOTE: 8033898) The Pap is a screening test for [...] Detected Not Detected Methodo logy: code = 48403-3) Transcriptio n-Mediat ed Amplificatio n This assay dete cts E6/E7 viral messenger RNA ( mRNA) from 14high-ris k HPV types (16,18,31,33,35 ,39,4 5,51,52,56,58,5 9,66, 68). The analyt ical performance characteristics of thisassay have been determined by [employer]The modifications h ave not been cleare d or approvedby the FDA. This assay has been validated pursu antto the CLIA regula tions and is used forclinical purposes. For additional information, pl ease refer tohttp://educat ion.[employer] .[employer]/ faq/[id number](Th is link if provide d for information/edu catio nal purposes on ly.) RAC (test code = RAC) Performing Organization Information: Site ID: IG Name: [facility] Address: [address] [place] [address] Director: Dr. Rajinder Grant Site ID: RGA Name: [facility] Address: [address] [place] [phone] Director: Rajinder Grant [facility] mRNA E6/E7 REFLEX HPV 16,18/45 2021-06-19 18:43:00 Test Item Value Reference Interpretation Comments Range Clinical information None gi niurka (test code = 40733-5) Date of last NONE GIVEN menstrual period (test code = 8665-2) Prev. pap: (test code NONE G IVEN = 40379-3) Prev. bx: (test code NONE GI NIURKA = 89580-4) Source (test code = [place] 50[address]-8) Statement of adequacy Satisf actory for (test code = 65447-6) evalua tion.Endocervi cony/transformat ion zone componentpresen t.Age and/or menstrua l status not prov ided Interpretation/result Negati ve for : (test code = intraepitheli [place] 85578-4) lesion or malignancy. Comment (test code = This Pa p test has ) been evaluated with computerassiste d technology. Review PMT, CT(ASCP)CT dipper operator screening l ocation: (test code = 64742-0) Bring[facility] [address], [facility] [address] Comment (test code = EXPLANA TORY NOTE: 5258945) The Pap is a screening test for [...] Detected Not Detected Methodo logy: code = 22086-3) Transcriptio n-Mediat ed Amplificatio n This assay dete cts E6/E7 viral messenger RNA ( mRNA) from 14high-ris k HPV types (16,18,31,33,35 ,39,4 5,51,52,56,58,5 9,66, 68). The analyt ical performance characteristics of thisassay have been determined by [employer].The modifications h ave not been cleare d or approvedby the FDA. This assay has been validated pursu antto the CLIA regula tions and is used forclinical purposes. For additional information, pl ease refer tohttp://educat ion.[employer]/ faq/JSW011n0(Th is link if provide d for information/edu catio nal purposes on ly.) JACEK (test code = JACEK) Performing Organization Information: Site ID: IG Name: [facility] Address: [address] [place] [phone] Director: Dr. Rajinder Grant Site ID: RGA Name: [facility] Address: [address] [place] [address] Director: Rajinder Grant [facility] HPV mRNA E6/E7 REFLEX HPV 16,18/45 2021-06-19 18:43:00 Test Item Value Reference Interpretation Comments Range Clinical information None gi niurka (test code = 19684-3) Date of last NONE GIVEN menstrual period (test code = 8665-2) Prev. pap: (test code NONE G IVEN = 69465-1) Prev. bx: (test code NONE GI NIURKA = 21671-8) Source (test code = [place] [address]-2) Statement of adequacy Satisf actory for (test code = 00374-2) evalua tion.Endocervi cony/transformat ion zone componentpresen t.Age and/or menstrua l status not prov ided Interpretation/result Negati ve for : (test code = intraepitheli al 29043-8) lesion or malignancy. Comment (test code = This Pa p test has ) been evaluated with computerassiste d technology. Review PMT, CT(ASCP)CT dipper operator screening l ocation: (test code = 88644-8) [address], [place] [address] 2 Comment (test code = VIRGILIO CASTELLANO NOTE: 5774322) The Pap is a screening test for [...] Detected Not Detected Methodo logy: code = 49554-3) Transcriptio n-Mediat ed Amplificatio n This assay dete cts E6/E7 viral messenger RNA ( mRNA) from 14high-ris k HPV types (16,18,31,33,35 ,39,4 5,51,52,56,58,5 9,66, 68). The analyt ical performance characteristics of thisassay have been determined by [employer].The modifications h ave not been cleare d or approvedby the FDA. This assay has been validated pursu antto the CLIA regula tions and is used forclinical purposes. For additional information, pl ease refer tohttp://educat ion.[employer]/ faq/AKJ356g0(Th is link if provide d for information/edu catio nal purposes on ly.) RAC (test code = RAC) Performing Organization Information: Site ID: IG Name: [facility] Address: [address] [place] [address] Director: Dr. Rajinder Grant Site ID: RGA Name: [facility] Address: [address] [place] [phone] Director: Rajinder Grant [facility] P[facility] AND HPV mRNA E6/E7 REFLEX HPV 16,18/45 2021-06-19 18:43:00 Test Item Value Reference Interpretation Comments Range Clinical information None gi niurka (test code = 55730-4) Date of last NONE GIVEN menstrual period (test code = 8665-2) Prev. pap: (test code NONE G IVEN = 41576-5) Prev. bx: (test code NONE GI NIURKA = 30107-1) Source (test code = [place] [address]-3) Statement of adequacy Satisf actory for (test code = 25057-2) evalua tion.Endocervi cony/transformat ion zone componentpresen t.Age and/or menstrua l status not prov ided Interpretation/result Negati ve for : (test code = intraepitheli al 09244-3) lesion or malignancy. Comment (test code = This Pa p test has ) been evaluated with computerassiste d technology. Review PMT, CT(ASCP)CT dipper operator screening l ocation: (test code = 79975-7) Bring[facility] [place] [address], [facility] [address] Comment (test code = EXPLANA TORY NOTE: 1441474) The Pap is a screening test for [...] Detected Not Detected Methodo logy: code = 03181-8) Transcriptio n-Mediat ed Amplificatio n This assay dete cts E6/E7 viral messenger RNA ( mRNA) from 14high-ris k HPV types (16,18,31,33,35 ,39,4 5,51,52,56,58,5 9,66, 68). The analyt ical performance characteristics of thisassay have been determined by [employer].The modifications h ave not been cleare d or approvedby the FDA. This assay has been validated pursu antto the CLIA regula tions and is used forclinical purposes. For additional information, pl ease refer tohttp://educat ion.[employer] .[employer]/ faq/FIL354j9(Th is link if provide d for information/edu catio nal purposes on ly.) JACEK (test code = JACEK) Performing Organization Information: Site ID: IG Name: [facility] Address: [address] [place] [address] Director: Dr. Rajinder Grant Site ID: RGA Name: [facility] Address: [address] [place] [phone] Director: Rajinder Grant [facility] AND HPV mRNA E6/E7 REFLEX HPV 16,18/45 2021-06-19 18:43:00 Test Item Value Reference Interpretation Comments Range Clinical information None gi niurka (test code = 94133-5) Date of last NONE GIVEN menstrual period (test code = 8665-2) Prev. pap: (test code NONE G IVEN = 78115-6) Prev. bx: (test code NONE GI NIURKA = 34765-5) Source (test code = None giv en ) Statement of adequacy Satisf actory for (test code = 12361-2) evalua tion.Endocervi cony/transformat ion zone componentpresen t.Age and/or menstrua l status not prov ided Interpretation/result Negati ve for : (test code = intraepitheli al 62566-8) lesion or malignancy. Comment (test code = This Pa p test has ) been evaluated with Personal Development Bureauiste d technology. Review PMT, CT(ASCP)CT dipper operator screening l ocation: (test code = 41305-7) [facility] [address], [facility] [address] Comment (test code = EXPLANA TORY NOTE: 4879824) The Pap is a screening test for [...] Detected Not Detected Methodo logy: code = 11387-6) Transcriptio n-Mediat ed Amplificatio n This assay dete cts E6/E7 viral messenger RNA ( mRNA) from 14high-ris k HPV types (16,18,31,33,35 ,39,4 5,51,52,56,58,5 9,66, 68). The fletcher tical performance characteristics of thisassay have been determined by [facility].The modifications h ave not been cleare d or approvedby the FDA. This assay has been validated pursu antto the CLIA regula tions and is used forclinical purposes. For additional information, pl ease refer tohttp://educat ion.[employer] .[employer]/ faq/UWQ348w2(Th is link if provide d for information/edu catio nal purposes on ly.) JACEK (test code = RAC) Performing Organization Information: Site ID: IG Name: [facility] Address: [address] [place] [address] Director: Dr. Rajinder Grant Site ID: RGA Name: [facility] Address: [address] [place] [phone] Director: Rajinder Grant [facility] HPV mRNA E6/E7 REFLEX HPV 16,18/45 2021-06-19 18:43:00 Test Item Value Reference Interpretation Comments Range Clinical information None gi niurka (test code = 20149-5) Date of last NONE GIVEN menstrual period (test code = 8665-2) Prev. pap: (test code NONE G IVEN = 59944-8) Prev. bx: (test code NONE GI NIURKA = 86096-8) Source (test code = [place] [address]-9) Statement of adequacy Satisf actory for (test code = 94276-1) evalua tion.Endocervi cony/transformat ion zone componentpresen t.Age and/or menstrua l status not prov ided Interpretation/result Negati ve for : (test code = intraepitheli al 03867-9) lesion or malignancy. Comment (test code = This Pa p test has ) been evaluated with computerassiste d technology. Review PMT, CT(ASCP)CT dipper operator screening l ocation: (test code = 61660-3) Bring[facility] [place] [address] 2 Comment (test code = EXPLANA TORY NOTE: 0756251) The Pap is a screening test for [...] Detected Not Detected Methodo logy: code = 94459-1) Transcriptio n-Mediat ed Amplificatio n This assay dete cts E6/E7 viral messenger RNA ( mRNA) from 14high-ris k HPV types (16,18,31,33,35 ,39,4 5,51,52,56,58,5 9,66, 68). The analyt ical performance characteristics of thisassay have been determined by [employer].The modifications h ave not been cleare d or approvedby the FDA. This assay has been validated pursu antto the CLIA regula tions and is used forclinical purposes. For additional information, pl ease refer tohttp://educat ion.[employer] .[employer]/ faq/IDZ936s5(Th is link if provide d for information/edu catio nal purposes on ly.) RAC (test code = RAC) Performing Organization Information: Site ID: IG Name: [facility] Address: [address] [place] [address] Director: Dr. Rajinder Grant Site ID: RGA Name: [facility] Address: [address] [place] [address] Director: Rajinder Grant [facility] [id number] 09:37:00 Test Item Value Reference Interpretation Comments Range Color, UA (test code YELLOW YELLOW = 5778-6) Appearance (test CLEAR CLEAR code = 5767-9) Specific gravity, 1.001-1.035 urine (test code = 5811-5) pH, urine (test code 5.0-8.0 = 5803-2) Glucose, urine (test NEGATIVE NEGATIVE code = 17440-5) Bilirubin, UA (test NEGATIVE NEGATIVE code = 5770-3) Ketones, UA (test NEGATIVE NEGATIVE code = 2514-8) Occult blood, urine NEGATIVE NEGATIVE (test code = 5794-3) Protein, UA (test NEGATIVE NEGATIVE code = 17434-2) Nitrite, UA (test NEGATIVE NEGATIVE code = [...] code = NONE SEEN See_Comment [Autom ated 30736-1) message] The sy stem which generated this result transmitted reference range : < OR = 2 /HPF. Th e reference range was not used to interpret this result as normal/abnormal . Squamous epithelial NONE SEEN See_Comment [Automa aydin cells, UA (test code message ] The system = 93387-4) which generated this result transmitted reference range [...] URINE, code = 630-4) ROUTINE Micro Number: [id number] Test Status: Fi nal Specimen Source [...] RAC) Organization Information: Site ID: RGA [facility] Address: [address] [place] [address] Director: Rajinder Grant Lab Interpretation Abnormal (test code = 35048-2) [facility] REFLEX TO [id number] 09:37:00 Test Item Value Reference Interpretation Comments Range Color, UA (test code YELLOW YELLOW = 5778-6) Appearance (test CLEAR CLEAR code = 5767-9) Specific gravity, 1.001-1.035 urine (test code = 5811-5) pH, urine (test code 5.0-8.0 = 5803-2) Glucose, urine (test NEGATIVE NEGATIVE code = 58406-8) Bilirubin, UA (test NEGATIVE NEGATIVE code = 5770-3) Ketones, UA (test NEGATIVE NEGATIVE code = 2514-8) Occult blood, urine NEGATIVE NEGATIVE (test code = 5794-3) Protein, UA (test NEGATIVE NEGATIVE code = 40442-8) Nitrite, UA (test NEGATIVE NEGATIVE code = [...] code = NONE SEEN See_Comment [Autom ated 12562-8) message] The sy stem which generated this result transmitted reference range : < OR = 2 /HPF. Th e reference range was not used to interpret this result as normal/abnormal . Squamous epithelial NONE SEEN See_Comment [Automa aydin cells, UA (test code message ] The system = 44543-4) which generated this result transmitted reference range [...] URINE, code = 630-4) ROUTINE Micro Number: [id number] 0 Test Status: Fi nal Specimen Source [...] RAC) Organization Information: Site ID: RGA Name: [facility] Address: [address] [place] [address] Director: Rajinder Grant Lab Interpretation Abnormal (test code = 79812-4) [facility] TO [id number] 09:37:00 Test Item Value Reference Interpretation Comments Range Color, UA (test code YELLOW YELLOW = 5778-6) Appearance (test CLEAR CLEAR code = 5767-9) Specific gravity, 1.001-1.035 urine (test code = 5811-5) pH, urine (test code 5.0-8.0 = 5803-2) Glucose, urine (test NEGATIVE NEGATIVE code = 47501-3) Bilirubin, UA (test NEGATIVE NEGATIVE code = 5770-3) Ketones, UA (test NEGATIVE NEGATIVE code = 2514-8) Occult blood, urine NEGATIVE NEGATIVE (test code = 5794-3) Protein, UA (test NEGATIVE NEGATIVE code = 59115-0) Nitrite, UA (test NEGATIVE NEGATIVE code = [...] code = NONE SEEN See_Comment [Autom ated 36091-6) message] The sy stem which generated this result transmitted reference range : < OR = 2 /HPF. Th e reference range was not used to interpret this result as normal/abnormal . Squamous epithelial NONE SEEN See_Comment [Automa aydin cells, UA (test code message ] The system = 29854-8) which generated this result transmitted reference range [...] URINE, code = 630-4) ROUTINE Micro Number: [id number] Test Status: Fi nal Specimen Source [...] = Performing RAC) Organization Information: Site ID: [facility] Name: [facility] Address: [address] [place] [address] Director: Rajinder Grant Lab Interpretation Abnormal (test code = 43665-6) [facility] REFLEX TO [id number] 09:37:00 Test Item Value Reference Interpretation Comments Range Color, UA (test code YELLOW YELLOW = 5778-6) Appearance (test CLEAR CLEAR code = 5767-9) Specific gravity, 1.001-1.035 urine (test code = 5811-5) pH, urine (test code 5.0-8.0 = 5803-2) Glucose, urine (test NEGATIVE NEGATIVE code = 89046-9) Bilirubin, UA (test NEGATIVE NEGATIVE code = 5770-3) Ketones, UA (test NEGATIVE NEGATIVE code = 9684-8) Occult blood, urine NEGATIVE NEGATIVE (test code = 5794-3) Protein, UA (test NEGATIVE NEGATIVE code = 92182-7) Nitrite, UA (test NEGATIVE NEGATIVE code = [...] code = NONE SEEN See_Comment [Autom ated 74847-5) message] The sy stem which generated this result transmitted reference range : < OR = 2 /HPF. Th e reference range was not used to interpret this result as normal/abnormal . Squamous epithelial NONE SEEN See_Comment [Automa aydin cells, UA (test code message ] The system = 37923-6) which generated this result transmitted reference range [...] URINE, code = 630-4) ROUTINE Micro Number: [id number] Test Status: Fi nal Specimen Source [...] RAC) Organization Information: Site ID: RGA Name: [facility] Address: [address] [place] [address] Director: Rajinder Grant Lab Interpretation Abnormal (test code = 26821-4) [facility] TO [id number] 09:37:00 Test Item Value Reference Interpretation Comments Range Color, UA (test code YELLOW YELLOW = 5778-6) Appearance (test CLEAR CLEAR code = 5767-9) Specific gravity, 1.001-1.035 urine (test code = 5811-5) pH, urine (test code 5.0-8.0 = 5803-2) Glucose, urine (test NEGATIVE NEGATIVE code = 52483-3) Bilirubin, UA (test NEGATIVE NEGATIVE code = 5770-3) Ketones, UA (test NEGATIVE NEGATIVE code = 2514-8) Occult blood, urine NEGATIVE NEGATIVE (test code = 5794-3) Protein, UA (test NEGATIVE NEGATIVE code = 64147-2) Nitrite, UA (test NEGATIVE NEGATIVE code = [...] code = NONE SEEN See_Comment [Autom ated 59003-1) message] The sy stem which generated this result transmitted reference range : < OR = 2 /HPF. Th e reference range was not used to interpret this result as normal/abnormal . Squamous epithelial NONE SEEN See_Comment [Automa aydin cells, UA (test code message ] The system = 31819-2) which generated this result transmitted reference range [...] URINE, code = 630-4) ROUTINE Micro Number: [id number] Test Status: Fi nal Specimen Source [...] colonization. I f this patient is , johana e refer [...] RAC) Organization Information: Site ID: RGA Name: [facility] Address: [address] [place] [address] Director: Rajinder Grant Lab Interpretation Abnormal (test code = 01294-8) [facility] REF[facility] TO [id number] 09:37:00 Test Item Value Reference Interpretation Comments Range Color, UA (test code YELLOW YELLOW = 5778-6) Appearance (test CLEAR CLEAR code = 5767-9) Specific gravity, 1.001-1.035 urine (test code = 5811-5) pH, urine (test code 5.0-8.0 = 5803-2) Glucose, urine (test NEGATIVE NEGATIVE code = 17642-5) Bilirubin, UA (test NEGATIVE NEGATIVE code = 5770-3) Ketones, UA (test NEGATIVE NEGATIVE code = 2514-8) Occult blood, urine NEGATIVE NEGATIVE (test code = 5794-3) Protein, UA (test NEGATIVE NEGATIVE code = 40102-4) Nitrite, UA (test NEGATIVE NEGATIVE code = [...] code = NONE SEEN See_Comment [Autom ated 23082-4) message] The sy stem which generated this result transmitted reference range : < OR = 2 /HPF. Th e reference range was not used to interpret this result as normal/abnormal . Squamous epithelial NONE SEEN See_Comment [Automa aydin cells, UA (test code message ] The system = 61507-3) which generated this result transmitted reference range [...] URINE, code = 630-4) ROUTINE Micro Number: [id number] Test Status: Fi nal Specimen Source [...] = Performing RAC) Organization Information: Site ID: [facility] Name: [facility] Address: [address] [place] [address] Director: Rajinder Grant Lab Interpretation Abnormal (test code = 60974-7) [facility] REF[facility] TO [id number] 09:37:00 Test Item Value Reference Interpretation Comments Range Color, UA (test code YELLOW YELLOW = 5778-6) Appearance (test CLEAR CLEAR code = 5767-9) Specific gravity, 1.009 1.001-1.035 urine (test code = 5811-5) pH, urine (test code 7.0 5.0-8.0 = 5803-2) Glucose, urine (test NEGATIVE NEGATIVE code = 56594-1) Bilirubin, UA (test NEGATIVE NEGATIVE code = 5770-3) Ketones, UA (test NEGATIVE NEGATIVE code = 3454-8) Occult blood, urine NEGATIVE NEGATIVE (test code = 5794-3) Protein, UA (test NEGATIVE NEGATIVE code = 95866-8) Nitrite, UA (test NEGATIVE NEGATIVE code = [...] code = NONE SEEN See_Comment [Autom ated 25150-9) message] The sy stem which generated this result transmitted reference range : < OR = 2 /HPF. Th e reference range was not used to interpret this result as normal/abnormal . Squamous epithelial NONE SEEN See_Comment [Automa aydin cells, UA (test code message ] The system = 85621-8) which generated this result transmitted reference range [...] URINE, code = 630-4) ROUTINE Micro Number: [id number] Test Status: Fi nal Specimen Source [...] RAC) Organization Information: Site ID: RGA Name: [facility] Address: [address] [place] [address] [place] [address] Director: Rajinder Grant Lab Interpretation Abnormal (test code = 76876-4) [facility] urinalysis [id number] 18:20:00 Test Item Value Reference Range Interpretation Comments Color urine, POC (test Straw code = 8438149) Clarity urine, POC (test Clear code = 2052256) Glucose urine, POC (test Negative Negative code = 6121044) Bilirubin urine, POC Negative Negative (test code = 8246495) Ketones urine, POC (test Negative Negative code = 2235145) Specific gravity urine, 1.005-1.030 POC (test code = 0807778) Blood urine, POC (test Trace Negative A code = 2122276) pH urine, POC (test code See_Comment [A utomated message] = 4029331) The system Differentialic h generated this result transmitted ref erence range: 5.0, 5.5 , 6.0, 6.5, 7.0, 7.5, 8.0, 8.5. The refere nce range was not u sed to interpret this result as normal/abnor mal. Protein urine, POC (test Negative Negative code = 5201902) Urobilinogen urine, POC <2.0 See_Comment [Au tomated message] (test code = 7841826) The sy stem which generated this result transmitted ref erence range: <=2.0. T he reference range was not used to int erpret this result as normal/abnormal . Nitrite urine, POC (test Negative Negative code = 9218259) Leukocyte esterase Negative Negative urine, POC (test code = 9417349) Lab Interpretation (test Abnormal code = 83025-8) [facility] urinalysis [id number] 18:20:00 Test Item Value Reference Range Interpretation Comments Color urine, POC (test Straw code = 9811225) Clarity urine, POC (test Clear code = 4786685) Glucose urine, POC (test Negative Negative code = 0674068) Bilirubin urine, POC Negative Negative (test code = 1404214) Ketones urine, POC (test Negative Negative code = 6296337) Specific gravity urine, 1.005-1.030 POC (test code = 3722592) Blood urine, POC (test Trace Negative A code = 1903228) pH urine, POC (test code See_Comment [A utomated message] = 7865909) The system [employer] generated this result transmitted ref erence range: 5.0, 5.5 , 6.0, 6.5, 7.0, 7.5, 8.0, 8.5. The refere nce range was not u sed to interpret this result as normal/abnor mal. Protein urine, POC (test Negative Negative code = 9938700) Urobilinogen urine, POC <2.0 See_Comment [Au tomated message] (test code = 3225067) The sy stem which generated this result transmitted ref erence range: <=2.0. T he reference range was not used to int erpret this result as normal/abnormal . Nitrite urine, POC (test Negative Negative code = 3673411) Leukocyte esterase Negative Negative urine, POC (test code = 7866994) Lab Interpretation (test Abnormal code = 59845-1) [facility] urinalysis [id number] 18:20:00 Test Item Value Reference Range Interpretation Comments Color urine, POC (test Straw code = 2889233) Clarity urine, POC (test Clear code = 5015984) Glucose urine, POC (test Negative Negative code = 1997155) Bilirubin urine, POC Negative Negative (test code = 5758327) Ketones urine, POC (test Negative Negative code = 5486107) Specific gravity urine, 1.005-1.030 POC (test code = 5605334) Blood urine, POC (test Trace Negative A code = 2116735) pH urine, POC (test code See_Comment [A utomated message] = 2400617) The system [employer] generated this result transmitted ref erence range: 5.0, 5.5 , 6.0, 6.5, 7.0, 7.5, 8.0, 8.5. The refere nce range was not u sed to interpret this result as normal/abnor mal. Protein urine, POC (test Negative Negative code = 5904285) Urobilinogen urine, POC <2.0 See_Comment [Au tomated message] (test code = 6968290) The sy stem which generated this result transmitted ref erence range: <=2.0. T he reference range was not used to int erpret this result as normal/abnormal . Nitrite urine, POC (test Negative Negative code = 9689181) Leukocyte esterase Negative Negative urine, POC (test code = 9016063) Lab Interpretation (test Abnormal code = 74948-5) [facility] urinalysis [id number] 18:20:00 Test Item Value Reference Range Interpretation Comments Color urine, POC (test Straw code = 8576366) Clarity urine, POC (test Clear code = 3649330) Glucose urine, POC (test Negative Negative code = 0421111) Bilirubin urine, POC Negative Negative (test code = 6011336) Ketones urine, POC (test Negative Negative code = 0805424) Specific gravity urine, 1.005-1.030 POC (test code = 1660579) Blood urine, POC (test Trace Negative A code = 0714655) pH urine, POC (test code See_Comment [A utomated message] = 4277440) The system Paxera h generated this result transmitted ref erence range: 5.0, 5.5 , 6.0, 6.5, 7.0, 7.5, 8.0, 8.5. The refere nce range was not u sed to interpret this result as normal/abnor mal. Protein urine, POC (test Negative Negative code = 0993414) Urobilinogen urine, POC <2.0 See_Comment [Au tomated message] (test code = 9850519) The sy stem which generated this result transmitted ref erence range: <=2.0. T he reference range was not used to int erpret this result as normal/abnormal . Nitrite urine, POC (test Negative Negative code = 9295701) Leukocyte esterase Negative Negative urine, POC (test code = 9157487) Lab Interpretation (test Abnormal code = 06507-9) [facility] urinalysis [id number] 18:20:00 Test Item Value Reference Range Interpretation Comments Color urine, POC (test Straw code = 0631188) Clarity urine, POC (test Clear code = 0893529) Glucose urine, POC (test Negative Negative code = 2192494) Bilirubin urine, POC Negative Negative (test code = 1121799) Ketones urine, POC (test Negative Negative code = 2344691) Specific gravity urine, 1.005-1.030 POC (test code = 9174621) Blood urine, POC (test Trace Negative A code = 6079156) pH urine, POC (test code See_Comment [A utomated message] = 6007302) The system Baihe generated this result transmitted ref erence range: 5.0, 5.5 , 6.0, 6.5, 7.0, 7.5, 8.0, 8.5. The refere nce range was not u sed to interpret this result as normal/abnor mal. Protein urine, POC (test Negative Negative code = 1729622) Urobilinogen urine, POC <2.0 See_Comment [Au tomated message] (test code = 9410270) The sy stem which generated this result transmitted ref erence range: <=2.0. T he reference range was not used to int erpret this result as normal/abnormal . Nitrite urine, POC (test Negative Negative code = 8235984) Leukocyte esterase Negative Negative urine, POC (test code = 1570067) Lab Interpretation (test Abnormal code = 44925-9) [facility] urinalysis [id number] 18:20:00 Test Item Value Reference Range Interpretation Comments Color urine, POC (test Straw code = 8687362) Clarity urine, POC (test Clear code = 6377754) Glucose urine, POC (test Negative Negative code = 4573256) Bilirubin urine, POC Negative Negative (test code = 9230901) Ketones urine, POC (test Negative Negative code = 1267325) Specific gravity urine, 1.005-1.030 POC (test code = 9281438) Blood urine, POC (test Trace Negative A code = 7925971) pH urine, POC (test code See_Comment [A utomated message] = 6473673) The system Baihe generated this result transmitted ref erence range: 5.0, 5.5 , 6.0, 6.5, 7.0, 7.5, 8.0, 8.5. The refere nce range was not u sed to interpret this result as normal/abnor mal. Protein urine, POC (test Negative Negative code = 8118138) Urobilinogen urine, POC <2.0 See_Comment [Au tomated message] (test code = 3959744) The sy stem which generated this result transmitted ref erence range: <=2.0. T he reference range was not used to int erpret this result as normal/abnormal . Nitrite urine, POC (test Negative Negative code = 2273585) Leukocyte esterase Negative Negative urine, POC (test code = 7538773) Lab Interpretation (test Abnormal code = 72548-0) [facility] urinalysis [id number] 18:20:00 Test Item Value Reference Range Interpretation Comments Color urine, POC (test Straw code = 3534209) Clarity urine, POC (test Clear code = 7465054) Glucose urine, POC (test Negative Negative code = 5988991) Bilirubin urine, POC Negative Negative (test code = 5190494) Ketones urine, POC (test Negative Negative code = 5572040) Specific gravity urine, 1.015 1.005-1.030 POC (test code = 5897403) Blood urine, POC (test Trace Negative A code = 8979348) pH urine, POC (test code 8.0 See_Comment [A utomated message] = 3848729) The system Differentialic h generated this result transmitted ref erence range: 5.0, 5.5 , 6.0, 6.5, 7.0, 7.5, 8.0, 8.5. The refere nce range was not u sed to interpret this result as normal/abnor mal. Protein urine, POC (test Negative Negative code = 4490534) Urobilinogen urine, POC <2.0 <=2.0 (test code = 8912541) Nitrite urine, POC (test Negative Negative code = 5671247) Leukocyte esterase Negative Negative urine, POC (test code = 4918438) Lab Interpretation (test Abnormal code = 23935-6) [facility] [Presence] in Respiratory specimen by LATESHA with probe [id number] 09:55:01 Test Item Value Reference Range Interpretation Comments SARS-CoV-2 (COVID-19) RNA Not detected Not-Detected [Presence] in Respiratory specimen by LATESHA with probe detection (test code = 23587-2) Whether patient is employed in a healthcare setting (test code = 96008-1) Whether the patient has symptoms related to condition of interest (test code = 85670-2) Patient was hospitalized because of this condition (test code = 49136-0) Whether the patient was admitted to intensive care unit (ICU) for condition of interest (test code = 67950-1) Whether patient resides in a congregate care setting (test code = 59369-4) DESI FALL-CoV-2 (COVID-19) RNA [Presence] in Respiratory specimen by LATESHA with probe [id number] 03:07:44 Test Item Value Reference Range Interpretation Comments SARS-CoV-2 (COVID-19) RNA Not detected Not-Detected [Presence] in Respiratory specimen by LATESHA with probe detection (test code = 90786-4) Whether patient is employed in a healthcare setting (test code = 79024-4) Whether the patient has symptoms related to condition of interest (test code = 97677-9) Patient was hospitalized because of this condition (test code = 36647-0) Whether the patient was admitted to intensive care unit (ICU) for condition of interest (test code = 28458-0) Whether patient resides in a congregate care setting (test code = 76430-9) DESI DUEÑAS [id number]-BuR-2 (COVID-19) RNA [Presence] in Respiratory specimen by LATESHA with probe [id number] 02:34:50 Test Item Value Reference Range Interpretation Comments SARS-CoV-2 (COVID-19) RNA Not detected Not-Detected [Presence] in Respiratory specimen by LATESHA with probe detection (test code = 26339-8) Whether patient is employed in a healthcare setting (test code = 75454-0) Whether the patient has symptoms related to condition of interest (test code = 34201-2) Patient was hospitalized because of this condition (test code = 93794-6) Whether the patient was admitted to intensive care unit (ICU) for condition of interest (test code = 58402-4) Whether patient resides in a congregate care setting (test code = 08031-7) DESI DUEÑAS [id number]-[id number]-3 (COVID-19) RNA [Presence] in Respiratory specimen by LATESHA with probe [id number] 22:46:50 Test Item Value Reference Range Interpretation Comments SARS-CoV-2 (COVID-19) RNA Not detected Not-Detected [Presence] in Respiratory specimen by LATESHA with probe detection (test code = 27606-5) [facility]-CoV-2 (COVID-19) RNA [Presence] in Respiratory specimen by LATESHA with probe [id number] 10:19:38 Test Item Value Reference Range Interpretation Comments SARS-CoV-2 (COVID-19) RNA Not detected Not-Detected [Presence] in Respiratory specimen by LATESHA with probe detection (test code = 29534-9) [facility]-CoV-2 (COVID-19) RNA [Presence] in Respiratory specimen by LATESHA with probe [id number] 00:17:03 Test Item Value Reference Range Interpretation Comments SARS-CoV-2 (COVID-19) RNA Not detected Not-Detected [Presence] in Respiratory specimen by LATESHA with probe detection (test code = 08012-6) [facility]-CoV-2 (COVID-19) RNA [Presence] in Respiratory specimen by LATESHA with probe [id number] 00:59:15 Test Item Value Reference Range Interpretation Comments SARS-CoV-2 (COVID-19) RNA Not detected Not-Detected [Presence] in Respiratory specimen by LATESHA with probe detection (test code = 68065-4) [place] [address]+ i-STAT [id number] 08:12:00 Test Item Value Reference [...] PELVIS WITHOUT CONTRAST, RENAL STONE PROTOCOL:Location code: [id number] HISTORY: Flank painCOMPARISON: CT abdomen and pelvis [...] Range Interpretation Comments COLOR (test code = [place] YELLOW A COLU) CLARITY (test code = [...] 11:03:05CT abdomen and pelvis with contrastLocation Code: [id number] HISTORY: Lower abdominal painCOMPARISON: NoneTechnique: Helical CT [...] GAP (test code = GANG) 15.0 mmol/L Notes Date/Time Note Provider Source 2021-08-08 18:57:00-00:00 [facility]Y PROVIDER REPORT REPORT#:[id number] REPORT STATUS: Signed DATE:08/08/21 TIME: 1856 PATIENT: HERSON JACKSON UNIT #: [id number] ROOM/BED: AGE: 51 SEX: F PCP PHYS: No Primary or Family Ph ysician SERVICE AUTHOR: Baldomero Stanley * ALL edits or amendments must be made on the [employer] document * Baldomero Stanley 08/08/211856: HPI- Female General Confirmed Patient Yes Presentation Chief Complaint Abdominal pa in (suprapubic), Flank pain R, Flank pain L, Urinary frequency, Urinary urgency Hx Obtained From Patient )( Sudden in Onset? No Onset Occurred Days ago (2) Symptom Duration Since onset Progression since Onset Gradually worsening Caused by No trauma by history Location Flank R, Flank L Quality Aching Radiation Does not radiate. Severity: Onset Mild Severity: Current Moderate Associated with Reports: Abdominal pain, Chills, Fever (subjecti ve), Nausea, Vomiting. Associated Other Pt denies other symptoms Exacerbated by Movement Relieved by Nothing Free Text HPI Notes Free Text HPI Notes 51-year-old female presents ER with complaints o f chills, fever, nausea, vomiting, flank pain. Patient states cesario t the pain is located on both sides of the back and lower abdomen. Patient has past medical history of kidn ey stones, cervical cancer which is in remission, hep C which is in remission 5 years. Surgical history of neck surgery. PCP Dr. Vargas Positive for cigarette use, occasional alcohol u se denies illicit drug use. Risk- Female Risk Stratification Ectopic Risk factors reviewed Review of Systems ROS Statements All systems rev neg except as marked. Free Text ROS Notes Free Text ROS Notes Focused Review of Systems Constitutional Denies: Chills, Fever, Malaise. Respiratory Denies: Cough, non-productive, Cough, pr oductive, Pleuritic pain, Shortness of breath, Wheezing. Cardiovascular Denies: Chest pain, Palpitations. GI Reports: Suprapubic abdominal pain, Nausea, Vomi ting. Denies: Bloody/tarry stool, Constipation , Diarrhea, Hematemesis, Hematochezia, Mucousy stool. See HPI Musculoskeletal Denies: Myalgia, Neck pain Past Medical History - Adult Stated Complaint CHILLS, FEVER. LOWER BACKPAIN, KIDNEY STONE Allergies Coded Allergies: No Known Allergies (03/31/12) Review of Nursing Notes Triage notes reviewed Additional Medical History hep c Additional Surgical History non-contributory Alcohol Use Alcohol use Drug Use Denies recreational drugs Smoking status: Smoking status for patients 13 years old or old er: Never Smoker Ambulatory Status Independent Physical Exam Vital Signs Vital Signs First Documented: Result Date Time Pulse Ox 96 08/08 1252 B/P 127/86 08/08 1252 B/P Mean 99.5 08/08 1252 O2 Delivery Room air 08/08 1252 Temp 98.6 08/08 1252 Pulse 77 08/08 1252 Resp 18 08/08 1252 Last Documented: Result Date Time Pulse Ox 97 08/08 1914 B/P 118/75 08/08 1914 B/P Mean 89.2 08/08 1914 Temp 98.1 08/08 1914 Pulse 64 08/08 1914 O2 Delivery Room air 08/08 1252 Resp 18 08/08 1252 Review of Vital Signs Reviewed, Vital signs norm al Free Text PE Notes Free Text PE Notes Focused PE General/Const Awake, Alert, Cooperative, Not toxic appearing Distress [] Head Atraumatic, Normocephalic Eyes PERRL, EOMI Ears/Nose/Throat Airway patent, Mucous membranes moist, Pharynx NL MS Neck Supple, No meningismus, Full range of motion Resp/Chest Breath sounds NL, Breath sounds = bilat, No res piratory distress, No rales, No rhonchi, No wheezing Cardiovascular Heart rate NL, Regular rhythm, Heart sounds NL, Peripheral circulation NL Abdomen/GI Soft, Non-tender, No guarding, No rebound, BS n ormoactive, No distention MS Back Inspection NL, Full range of motion, mild bilat eral CVA tenderness Skin Color NL, Warm, Dry Neurologic Oriented X3, Speech NL, No motor deficits, No s ensory deficits Interpretation Diagnostics Lab Results Interpretation Results Laboratory Tests 08/08/21 1355: [Embedded Image Not Available] Laboratory Tests: 08/08 08/08 1806 1355 Chemistry Lactic Acid (0.7 - 2.0 mmol/L) 0.7 Urines Urine Color (Yellow) Yellow Urine Appearance (Clear) Slightly-Cloudy Urine pH (5.0 - 8.0) 5.0 [address] Specific [place] (<1.030) 1.018 Urine Protein (Negative mg/dL) NEGATIVE Urine Glucose (UA) (Negative) Negative Urine Ketones (Negative mg/dL) Negative Urine Blood (Negative) 2+ H Urine Nitrite (Negative) Negative Urine Bilirubin (Negative) Negative Urine Urobilinogen (Negative mg/dL) 2.0 H Ur Leukocyte Esterase (Negative) 1+ H Urine RBC (<4 - 5 /HPF) 11-20 H Urine WBC (<4 - 5 /HPF) 21-30 H Ur Squamous Epith Cells (0 - 5 (RARE) /HPF) 6-1 5 (FEW) H Urine Bacteria (None - Rare /HPF) None Urine Mucus (<Rare /LPF) 2+ H 08/08 135 Chemistry Sodium (137 - 145 mmol/L) 141 Potassium (3.4 - 5.0 mmol/L) 4.1 Chloride (98 - 107 mmol/L) 110 H Carbon Dioxide (22 - 30 mmol/L) 21 L Anion Gap 15 BUN (7 - 17 mg/dL) 10 Creatinine (0.5 - 1.0 mg/dL) 0.6 Glomerular Filtr Rate (>60) 112 Glucose (74 - 106 mg/dL) 109 H Calcium (8.4 - 10.2 mg/dL) 9.1 Total Bilirubin (0.2 - 1.3 mg/dL) 0.2 Conjugated Bilirubin (0 - 0.3 mg/dL) 0 Unconjugated Bilirubin (0 - 1.1 mg/dL) 0.1 AST (15 - 46 U/L) 29 ALT (0 - 34 U/L) 19 Total Alk Phosphatase (38 - 126 U/L) 56 Troponin I (0.012 - 0.033 ng/mL) < 0.012 L Total Protein (6.3 - 8.2 g/dL) 7.1 Albumin (3.5 - 5.0 g/dL) 4.1 Specimen Hemolysis (0 - 100 Index/DL) < 15 Hematology WBC (5.0 - 12.0 x10 3/uL) 9.2 RBC (4.20 - 5.40 x10 6/uL) 4.46 Hgb (12.0 - 16.0 g/dL) 13.5 Hct (36.0 - 46.0 %) 40.0 MCV (81 - 99 fL) 90 MCH (27 - 31 pg) 30.3 MCHC (33 - 37 g/dL) 33.8 RDW (11.5 - 15.5 %) 14.3 Plt Count (130 - 400 x10 3/uL) 224 MPV (9.4 - 16.4 fL) 9.6 Neut % (Auto) (43 - 65 %) 73.1 H Lymph % (Auto) (20.5 - 45.5 %) 15.8 L Page % (Auto) (5.5 - 11.7 %) 9.8 Eos % (Auto) (0.9 - 2.9 %) 0.7 L Baso % (Auto) (0.2 - 1.0 %) 0.3 Neut # (Auto) (2.2 - 4.8 x10 3/uL) 6.69 H Lymph # (Auto) (1.3 - 2.9 x10 3/uL) 1.45 Page # (Auto) (0.3 - 0.8 x10 3/uL) 0.90 H Eos # (Auto) (0.0 - 0.2 x10 3/uL) 0.06 Baso # (Auto) (0.0 - 0.1 x10 3/uL) 0.03 Immature Gran % (0.0 - 2.0 %) 0.3 Nucleated RBC % (0 - 1.0 %) 0.0 Microbiology: Date/Time Procedure - Status Source Growth 08/08 1848 Urine Culture - RECD URINE 08/08 135 Blood Culture - RES BLOOD 08/08 135 Blood Culture - RES BLOOD Recent Impressions: RADIOLOGY - XR CHEST 1 V 08/08 1338 Report Impression - Status: SIGNED Entered: 08/08/2021 1354 IMPRESSION: 1. No acute cardiopulmonary findings seen. Impression By: [email or web address] Camden Moore MD CAT SCAN - CT ABD PELVIS W/O CONT 08/08 1430 Report Impression - Status: SIGNED Entered: 08/08/2021 1456 IMPRESSION: 1. Left nephrolithiasis. No hydronephrosis. No o bstructive uropathy. 2. No free fluid, or free air. 3. Findings suggest pelvic inflammatory disease. RECOMMENDATIONS: None. Internal Coding only:B3 Impression By: Sandro Ovalles MD Lab Imaging Statement Laboratory radiographic studies reviewed and con sidered in the medical decision-making. Point of Care Testing Urinalysis Interpretation Po sitive blood, Positive leukocyte est, Positive RBC's , Positive WBC's Pulse Oximetry Pulse Ox % 97 On: Room air Interpretation Interpreted by me, Pulse oximetr y normal Time 1914 ECG #1 Interpretation Date 08/08/21 Time 1353 Interpreted by ED physician, ED physician assist ant NL ECG Interpretation Normal rate, Normal sinus rhythm, No acute ischemic changes, No STEMI, Normal QRS, Normal ST waves, Normal T waves, Normal axis, Normal intervals, Adequate tracing Rate 66 ECG Interpretation Note The ECG interpretation was done contemporaneousl y by me. This is an adequate tracing. There is no acute ischemia; the rhythm is normal sinus; W[place] does not demonstrate AV heart block; QRS does not demonstrate a bundle branch block; ST and T waves do not show any ST elevation to sugg est acute NE; see Carson for details and measurements; agree with computer in terpretation. Re-Evaluation MDM Re-Evaluation/Progress Re-Evaluation/Progress 1 Text/Dict Note Plan to discharge discussed with pt. Discussed diagnosis, results, and treatment plan with pt. Pt understands and agrees with the plan. Written educational handouts/material appropriate to the pt's proble m provided to the pt. All questions and concerns were addressed. P t advised to follow-up with PCP in 2-3 days. Stressed importance of follow-up. ER return precautions discussed with pt. Pt advised to return to ED for any new, worsenin g, persistent, or concerning symptoms. Pt verbalized understanding. Time of Re-Eval 185 Re-Eval Status Improved Eval Following Treatment Pt. feels better Re-Evaluation/Progress 2 Text/Dict Note I did not write a prescription to cover the sybil ent for possible pelvic inflammatory disease. She received the 1 g of Ro cephin here but also needs to be placed on doxycycline and Flagyl. I called the phone number the patient left in her contact information. The phone call went to her parents who are aware that she was at the hospital today and they gave me her phone number. Her phone number is [phone]. That number did not work . I called the parents back and they stated that they we re attempting to call her as well but thinks she may be asleep. Time of Re-Eval 2313 Re-Evaluation/Progress 3 Text/Dict Note I was able to get in touch with the patient. I e xplained to her the missed diagnosis on my part. We dis cussed the diagnosis and she agreed to miner pick both doxycycline and Flagyl antib iotics at the [facility] on [facility] and I with ZIP Code [id number]. I instructed the patient that sh chiqui does not have to take the Macrobid any longer. Patient verbalized understanding and states she will miner pick her prescriptions in the morning. Time of Re-Eval 2320 ED Course Medication(s) Ordered Medication(s) Ordered: Anti-Infective Agents Sig/Kevin Start time Last Medication Dose Route Stop Time Status Admin Ceftriaxone Sodium 1,000 MG X1ED STA 08/08 1257 DC 08/08 Sodium Chloride 10 ML IV 08/08 1259 1415 Central Nervous System Agents Sig/Kevin Start time Last Medication Dose Route Stop Time Status Admin Ketorolac 15 MG X1ED STA 08/08 1257 DC 08/08 Tromethamine IV 08/08 1258 1415 Electrolytic, Caloric, And Jeannette Sig/Kevin Start time Last Medication Dose Route Stop Time Status Admin Lactated Ringer's 2,318.19 ML X1ED STA 08/08 12 57 DC 08/08 IV 08/08 1258 1410 Gastrointestinal Drugs Sig/Kevin Start time Last Medication Dose Route Stop Time Status Admin Ondansetron HCl 4 MG X1ED STA 08/08 1257 DC IV 08/08 1258 1416 Patient Discharge Departure Vital Signs/Condition Vital Signs First Documented: Result Date Time Pulse Ox 96 08/08 1252 B/P 127/86 08/08 1252 B/P Mean 99.5 08/08 1252 O2 Delivery Room air 08/08 125 Temp 98.6 08/08 1252 Pulse 77 08/08 1252 Resp 18 08/08 1252 Last Documented: Result Date Time Pulse Ox 97 08/08 1915 B/P 118/75 08/08 191 B/P Mean 89.2 08/08 1914 Temp 98.1 08/08 1914 Pulse 64 08/08 191 O2 Delivery Room air 08/08 1252 Resp 18 08/08 1252 All vital signs available at the time of this en try have been reviewed. Condition Stable, Improved Clinical Impression Clinical Impression Primary Impression: PID (acute pelvic inflammato ry disease) Secondary Impressions: UTI (urinary tract infect ion) Disposition Decision Discharge )( Discharged to Home Yes )( Time 1900 )( Date 08/08/21 Discharge/Care Plan Counseled Regarding Diagnosi s, Lab results, Imaging studies, Prescriptions, Need for follow-up, When to return to ED (Auto) Prescriptions Current Visit Scripts PHENAZOPYRIDINE (PYRIDIUM) 200 MG PO TID PRN PRN DYSURIA PHENAZOPYRIDINE (PYRIDIUM) 200 MG PO TID PRN WV N DYSURIA #6 TABS TAKE AFTER MEALS. DOXYCYCLINE HYCLATE (VIBRAMYCIN) 100 MG PO Q12H 14 Days #28 CAPS metroNIDAZOLE (FLAGYL) 500 MG PO BID 14 Days #28 TABS Prescriptions Reviewed Risks, Benefits, Alternat cole treatment Patient Instructions Urinary Tract Infections in Women Departure Forms FREE OR LOW COST CLINICS BLAIRS PCP LIST UROLOGIST LIST Discharge Note I have spoken with the patie nt and/or caregivers. I have explained the patient's condition, diagnoses and corwin atment plan based on the information available to me at this time. I have answered the patient's and/ or caregiver's questions and addressed any concerns. The patient and/or careg salud have as good an understanding of the patient 's diagnosis, condition and treatment plan as can be expected at this point. The vital signs have bee n stable. The patient's condition is stable and appr opriate for discharge from the emergency department. The patient will pursue further outpatient evalu ation with the primary care physician or other designated or consulting phys ician as outlined in the discharge instructions. The patient and/or caregivers are agreeable to this plan of care and follow-up instructions have been exp lained in detail. The patient and/or caregivers have received these instructio ns in written format and have expressed an understanding of the discharge inst ructions. The patient and/or caregivers are aware that any significant change in condition or worsening of symptoms should prompt an immediate return to [facility] or the closest emergency department or a call to 911. Naren Sapp 08/09/21 0259: HPI- Female General Initial Greet Date/Time 08/08/21 1248 Patient Discharge Departure Supervising Physician Note MidLv Saw Pt Alone I have reviewed the PA/SAFETY INTERN's note and plan of car e. I was available for consultation as needed at al l times during the patient's visit in the emergency department. Electronically Signed by Baldomero Stanley on 0 08/09/21 at 0148 at 0300 RPT #:[id number] END OF REPORT 2021-08-08 13:00:00-00:00 [facility] ([facility]) EMERGENCY PROVIDER REPORT REPORT#:[id number] REPORT STATUS: Signed DATE:08/08/21 TIME: 1300 PATIENT: HERSON JACKSON UNIT #: [id number] ROOM/BED: AGE: 51 SEX: F PCP PHYS: No Primary or Family Ph ysician SERVICE AUTHOR: Debo Gutierrez * ALL edits or amendments must be made on the [employer]/computer document * Debo Gutierrez 08/08/21 1300: Provider in Triage - Adult Provider in Triage Greet Note I have greeted and performed a focused rapid initial assessment of this patient. A comprehensive ED assessment and evaluation of the patient, analysis of all test results, and completion of the medical deci key-making process will be conducted by additional ED providers. MSE Not Complete The medical screening exam i s not complete. Further evaluation and/or treatment is required. The patient will be re-directed to the emergency department. Free Text PIT Notes Free Text PIT Notes 51-year-old female presents ER with complaints o f chills, fever, nausea, vomiting, flank pain. Patient states cesario t the pain is located on both sides of the back and lower abdomen. Patient has past medical history of kidn ey stones, cervical cancer which is in remission, hep C which is in remission 5 years. Surgical history of neck surgery. PCP Dr. Vargas Positive for cigarette use, occasional alcohol u se denies illicit drug use. PMH-Provider in Triage Stated Complaint CHILLS, FEVER. LOWER BACK PAIN, KIDNEY STONE Allergies Coded Allergies: No Known Allergies (03/31/12) Additional Medical History hep c Additional Surgical History non-contributory Smoking status: Smoking status for patients 13 years old or old er: Never Smoker Norberto Mendez 08/17/21 1148: Provider in Triage - Adult Provider in Triage Initial Greet Date/Time 08/08/21 1248 at 1302 Electronically Signed by Norberto Mendez MD on at [address] [facility] #:[id number] END OF REPORT
[2022-09-13] MEDS ORDERED: KETOROLAC 30 MG/ML INJ ONE (11:18)
[2022-09-13] MEDS ORDERED: NA CHLORIDE 0.9% 500 ML ONE (11:18)
[2022-09-13 11:19] LABS: Absolute Lymphocytes (CBC) 1.8 K/uL (0.7-4.9); Hematocrit 42.9 % (36.0-45.0); Lymphocytes % 25.9 % (15.3-44.8); MCV 90.7 fL (80-100); MPV 7.7 fL (7.6-11.3); RBC Red Blood Cell Count 4.73 M/uL (3.86-4.86)
[2022-09-13 11:36] LABS: Potassium 4.1 mEq/L (3.5-5.1); Troponin High Sensitivity 3.2 pg/mL (<58.9)
--- NOTE | 2022-09-13 11:39 | RAD REPORT ---
EXAM DESCRIPTION: RADChest Single View09/13/2022 11:11 am CLINICAL HISTORY: CHEST PAIN COMPARISON: Chest Single View dated 08/14/2022; Chest Single View dated 04/23/2022; Chest Single View d ated 04/15/2022; Chest Single View dated 2Chest Single View dated 08/14/2022; Chest Single View dated 04/23/2022; Chest Single View dated 04/15/2022; Chest Single View dated 03/05/2022 TECHNIQUE: Portable AP view of the chest. FINDINGS: The lungs are clear. No pneumothorax or effusion. The cardiomediastinal contours are unre markable. IMPRESSION: No acute cardiopulmonary process.
--- NOTE | 2022-09-13 12:56 | ER ---
Nurse's Notes [facility] Name: Fany Meza Age: 52 yrs Sex: Female : 1970 Arrival Date: 09/13/2022 Time: 10:27 Bed 14 Private MD: Diagnosis: Chest pain, unspecified Presentation: 09/13 10:37 Chief complaint: Patient states: CP, SOB, nausea that began this morning. BP yesterday vg1 was 170/110, denies h/a. Coronavirus screen: Vaccine status: Patient reports receiving the 2nd dose of the covid vaccine. Client denies travel out of the [place] in the last 14 days. Ebola Screen: Patient negative for fever greater than or equal to 101.5 degrees Fahrenheit, and additional compatible Ebola Virus Disease symptoms Patient denies exposure to infectious person. Patient denies travel to an Ebola-affected area in the 21 days before illness onset. Initial Sepsis Screen: Does the patient meet any 2 criteria? No. Patient's initial sepsis screen is negative. Does the patient have a suspected source of infection? No. Patient's initial sepsis screen is negative. Risk Assessment: Do you want to hurt yourself or someone else? Patient reports no desire to harm self or others. Onset of symptoms was September 13, 2022. 10:37 Method Of Arrival: Ambulatory vg1 10:37 Acuity: SHARAN 3 vg1 Triage Assessment: 10:38 General: Appears uncomfortable, Behavior is cooperative. Pain: Complains of pain in vg1 anterior aspect of left upper chest Pain does not radiate. Pain currently is 5 out of 10 on a pain scale. Neuro: Level of Consciousness is awake, alert, obeys commands, Oriented to person, place, time, situation, Reports dizziness, Denies headache. Cardiovascular: Reports chest pain, nausea, shortness of breath, Patient's skin is warm and dry. 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 - Social history:: Smoking status: Patient reports the use of cigarette tobacco products, 5/day. Screenin:39 [facility] ED Fall Risk Assessment (Adult) History of falling in the last 3 months, vg1 including since admission No falls in past 3 months (0 pts). Abuse screen: Denies threats or abuse. Denies injuries from another. Nutritional screening: No deficits noted. Tuberculosis screening: No symptoms or risk factors identified. Assessment: 12:42 Reassessment: Patient appears in no apparent distress at this time. Patient and/or kc6 family updated on plan of care and expected duration. Pain level reassessed. Patient is alert, oriented x 3, equal unlabored respirations, skin warm/dry/pink. 13:10 Reassessment: Patient appears in no apparent distress at this time. Patient and/or kr3 family updated on plan of care and expected duration. Pain level reassessed. Patient is alert, oriented x 3, equal unlabored respirations, skin warm/dry/pink. Vital Signs: 10:37 BP 145 / 94; Pulse 77; Resp 16; Temp 97.7; Pulse Ox 100% on R/A; Weight 79.83 kg; vg1 Height 5 ft. 4 in. ; Pain 5/10; 12:42 BP 112 / 83; Pulse 63; Resp 25 S; Pulse Ox 100% on R/A; kc6 13:10 BP 113 / 83; Pulse 53; Resp 18; Pulse Ox 100% on R/A; kr3 10:37 Body Mass Index 30.21 (79.83 kg, 162.56 cm) vg1 10:37 Pain Scale: Adult vg1 ED Course: 10:29 Patient arrived in ED. mr 10:33 Rajat Pettit MD is Attending Physician. bs3 10:38 Triage completed. vg1 10:38 Arm band placed on. EKG completed in triage. Results shown to MD. vg1 10:45 Bed in low position. Call light in reach. Side rails up X 1. Client placed on kr3 continuous cardiac and pulse oximetry monitoring. NIBP monitoring applied. 10:58 EKG done, by ED staff. Inserted saline lock: 22 gauge in right antecubital area, using tm3 aseptic technique. 11:08 Efrain, Sabra, RN is Primary Nurse. kr3 11:10 Initial lab(s) drawn, by me, sent to lab. tm3 11:13 XRAY Chest (1 view) In Process Unspecified. EDMS 13:11 No provider procedures requiring assistance completed. IV discontinued, intact, kr3 bleeding controlled, No redness/swelling at site. Pressure dressing applied. Patient maintains SpO2 saturation greater than 95% on room air. Administered Medications: 11:15 Drug: Ketorolac IVP 15 mg Route: IVP; Site: right antecubital; kr3 13:13 Follow up: Response: No adverse reaction kr3 11:15 Drug: NS 0.9% IV 500 ml Volume: 500 ml; Route: IV; Rate: 1 bolus; Site: right kr3 antecubital; 13:13 Follow up: Response: No adverse reaction; IV Status: Completed infusion; IV Intake: kr3 500ml Medication: 10:39 VIS not applicable for this client. vg1 Intake: 13:13 IV: 500ml; Total: 500ml. kr3 Outcome: 12:55 Discharge ordered by . bs3 13:11 Discharged to home ambulatory. kr3 13:11 Condition: stable 13:11 Discharge instructions given to patient, Instructed on discharge instructions, follow up and referral plans. Demonstrated understanding of instructions, follow-up care. 13:13 Patient left the ED. kr3 Signatures: Dispatcher [employer] EDMS Latrell La tm3 Christina CookLurdes, RN RN vg1 Sabra Zuniga, SCOTTY RN kr3 Yanci Zuñiga RN RN [id number] Rajat Pettit MD MD bs3
--- NOTE | 2022-09-13 12:56 | EDPHYS ---
Physician Documentation [facility] Name: Fany Meza Age: 52 yrs Sex: Female : 1970 Arrival Date: 09/13/2022 Time: 10:27 Bed 14 Private MD: ED Physician Rajat Pettit HPI: 09/13 11:07 This 52 yrs old Female presents to ER via Ambulatory with complaints of Chest bs3 Pain, Dizziness. 11:07 52-year-old with history of hep C status posttreatment and history of cervical cancer 7 bs3 years ago status posttreatment history of hypertension well-controlled presents with left-sided chest pain started this morning she had some dizziness last night when taking her blood pressure because it was slightly high and she got anxious nervous and then this morning she had left-sided chest pain it feels like a dull ache it is nonradiating not associate with nausea vomiting or sweating it does not move nothing seems to make it better or worse she has no associated shortness of. 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 - Social history:: Smoking status: Patient reports the use of cigarette tobacco products, 5/day. ROS: 11:07 Constitutional: Negative for fever, chills bs3 11:07 All other systems are negative. Exam: 11:07 Constitutional: This is a well developed, well nourished patient who is awake, alert, bs3 and in no acute distress. Head/Face: Normocephalic, atraumatic. Eyes: Pupils equal round and reactive to light, extra-ocular motions intact. Lids and lashes normal. ENT: mmm, no posterior phyarngeal erythema Neck: Trachea midline, no thyromegaly, no neck stiffness Chest/axilla: She has point tenderness on the left costochondral margin at approximately the fourth rib, she winces to pain when palpated Cardiovascular: Regular rate and rhythm with a normal S1 and S2. symmetric pulses in upper extremities Respiratory: Lungs have equal breath sounds bilaterally, clear to auscultation, no respiratory distress MS/ Extremity: Pulses equal, no cyanosis. Neurovascular intact. Full, normal range of motion. Neuro: Awake and alert, GCS 15, oriented to person, place, time, and situation. Cranial nerves II-XII grossly intact. Motor strength 5/5 in all extremities. Sensory grossly intact. Psych: Awake, alert, with orientation to person, place and time. Behavior, mood, and affect are within normal limits. Vital Signs: 10:37 BP 145 / 94; Pulse 77; Resp 16; Temp 97.7; Pulse Ox 100% on R/A; Weight 79.83 kg; vg1 Height 5 ft. 4 in. ; Pain 5/10; 12:42 BP 112 / 83; Pulse 63; Resp 25 S; Pulse Ox 100% on R/A; kc6 13:10 BP 113 / 83; Pulse 53; Resp 18; Pulse Ox 100% on R/A; kr3 10:37 Body Mass Index 30.21 (79.83 kg, 162.56 cm) vg1 10:37 Pain Scale: Adult vg1 MDM: 10:33 Patient medically screened. bs3 11:07 Data reviewed: vital signs, nurses notes. ED course: 52-year-old with atypical bs3 left-sided chest pain her EKG is normal sinus rhythm at [address] elevations or depressions her QTc is 444 she does have nonspecific ST changes on the lateral leads Will rule out ACS she is not hypoxic or tachypneic I do not think this is an acute PE her history and physical are not consistent with aortic dissection given the wincing to pain I do believe that this is musculoskeletal in origin. 12:53 ED course: Work-up negative patient reassessed and feeling much better will discharge bs3 home. 09/13 11:05 Order name: Basic Metabolic Panel; Complete Time: 11:50 3 09/13 11:05 Order name: CBC with Diff; Complete Time: 11:50 3 09/13 11:05 Order name: Troponin HS; Complete Time: 11:50 3 09/13 11:05 Order name: XRAY Chest (1 view); Complete Time: 11:50 3 09/13 11:05 Order name: EKG; Complete Time: 11:08 bs3 09/13 11:05 Order name: Cardiac monitoring; Complete Time: : bs3 09/13 11:05 Order name: EKG - Nurse/Tech; Complete Time: 11: bs3 09/13 11:05 Order name: IV Saline Lock; Complete Time: bs3 09/13 11:05 Order name: Labs collected and sent; Complete Time: bs3 09/13 11:05 Order name: O2 Per Protocol; Complete Time: bs3 09/13 11:05 Order name: O2 Sat Monitoring; Complete Time: : bs3 Administered Medications: 11:15 Drug: Ketorolac IVP 15 mg Route: IVP; Site: right antecubital; kr3 13:13 Follow up: Response: No adverse reaction kr3 11:15 Drug: NS 0.9% IV 500 ml Volume: 500 ml; Route: IV; Rate: 1 bolus; Site: right kr3 antecubital; 13:13 Follow up: Response: No adverse reaction; IV Status: Completed infusion; IV Intake: kr3 500ml Disposition Summary: 09/13/22 12:55 Discharge Ordered Location: Home bs3 Problem: new bs3 Symptoms: have improved bs3 Condition: Stable bs3 Diagnosis - Chest pain, unspecified bs3 Followup: bs3 - With: Private Physician - When: 1 week - Reason: Recheck today's complaints Discharge Instructions: - Discharge Summary Sheet bs3 - Chest Wall Pain bs3 - Nonspecific Chest Pain, Adult, [id number] bs3 Forms: - Medication Reconciliation Form bs3 - Thank You Letter bs3 - Antibiotic Education bs3 - Prescription Opioid Use bs3 Signatures: Dispatcher [employer] Lurdes Hutchison, RN RN vg1 Sabra Zuniga, RN RN kr3 Rajat Pettit MD MD bs3
[2022-09-13 13:36] VITALS: TEMP 97.7; O2SAT 100
[2022-09-13 13:38] VITALS: BP 113/83
--- NOTE | 2022-09-14 10:16 | EKG ---
Test Date: 2022-09-13 Test Time: 10:44:28 Mgmt Consultant: TM MEASUREMENT RESULTS: Intervals: Rate: 70 [place]: 122 QRSD: 80 QT: 412 QTc: 444 [place]: P: 53 [place]: 122 QRS: 63 T: 33 INTERPRETIVE STATEMENTS: Sinus rhythm with occasional premature ventricular complexes Otherwise normal ECG Compared to ECG 08/14/2022 11:20:15 Ventricular premature complex(es) now present Electronically Signed On 09-14-22 10:13:48 CDT by Rich Sprague
== END 2022-09-13 13:13 | disposition home or self-care (01) ==
LOC: ER 10:27
DX: R07.89 Other chest pain (principal); I10 Essential (primary) hypertension; Z72.0 Tobacco use; Z85.41 Personal history of malignant neoplasm of cervix uteri
CPT/HCPCS: 96361; 93005; 85025; 80048; 36415; 84484; 71045; 96374; 99285; J7040

== ENCOUNTER 2022-10-19 16:53 | Emergency (ER) | payer OTHER ==
--- OUTSIDE RECORDS SUMMARY | 2022-10-19 17:07 | XMS REPORT | Continuity of Care Document ---
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 [facility]325 mg 00 :00 every 6 l per tablet (six) hours as needed for moderate pain or severe pain for up to 2 days .acute pain. Max Daily Amount: 4 tablets HYDROcodone 2021-0 2021- No 1{tbl} Q6H Take 1 [facility] -acetaminop 6-21 -[address] [facility] ([employer]) 00:00: 00:00 [facility] 5-325 mg 00 :00 every 6 l per tablet (six) hours as needed for moderate pain or severe pain for up to 2 days .acute pain. Max Daily Amount: 4 tablets HYDROcodone 2021-0 2021- No 1{tbl} Q6H Take 1 [facility] -acetaminop 6-21 06-[address] [facility] ([employer]) 00:00: 00:00 [facility] 5-325 mg 00 :00 every 6 l per tablet (six) hours as needed for moderate pain or severe pain for up to 2 days .acute pain. Max Daily Amount: 4 tablets HYDROcodone 2-0 2021- No 1{tbl} Q6H Take 1 [facility] -acetaminop 6-21 06-[address] [facility] ([employer]) 00:00: 00:00 [facility] 5-325 mg 00 :00 every 6 l per tablet (six) hours as needed for moderate pain or severe pain for up to 2 days .acute pain. Max Daily Amount: 4 tablets HYDROcodone 2-0 2021- No 1{tbl} Q6H Take 1 [facility] -acetaminop 6-21 06-[address] [facility] ([employer]) 00:00: 00:00 [facility]325 mg 00 :00 every 6 l per tablet (six) hours as needed for moderate pain or severe pain for up to 2 days .acute pain. Max Daily Amount: 4 tablets HYDROcodone 2-0 2021- No [id number] 1{tbl} Q6H Take 1 [facility] -acetaminop 6-21 06-[address] [facility] ([employer]) 00:00: 00:00 [facility]325 mg 00 :00 every 6 l per tablet (six) hours as needed for moderate pain or severe pain for up to 2 days .acute pain. Max Daily Amount: 4 tablets HYDROcodone 2021-0 2021- [place] [id number] 1{tbl} Q6H Take 1 [facility] -acetaminop 6-21 06-[address] [facility] ([employer]) 00:00: 00:00 [facility]325 mg 00 :00 every 6 l per tablet (six) hours as needed for moderate pain or severe pain for up to 2 days .acute pain. Max Daily Amount: 4 tablets HYDROcodone 2021-0 2021- No [id number] 1{tbl} Q6H Take 1 [facility] -acetaminop 6-21 06-[address] [facility] ([employer]) 00:00: 00:00 [facility] 5-325 mg 00 :00 every 6 l per tablet (six) hours as needed for moderate pain or severe pain for up to 2 days .acute pain. Max Daily Amount: 4 tablets HYDROcodone 2021-0 2021- No [id number] 1{tbl} Q6H Take 1 [facility] -acetaminop 6-21 06-[address] [facility] ([employer]) 00:00: 00:00 [facility]325 mg 00 :00 every 6 l per tablet (six) hours as needed for moderate pain or severe pain for up to 2 days .acute pain. Max Daily Amount: 4 tablets HYDROcodone 2-0 2021- No [id number] 1{tbl} Q6H Take 1 [facility] -acetaminop 6-21 06-[address] [facility] ([employer]) 00:00: 00:00 [facility]325 mg 00 :00 every 6 l per tablet (six) hours as needed for moderate pain or severe pain for up to 2 days .acute pain. Max Daily Amount: 4 tablets HYDROcodone 2-0 2021- No [id number] 1{tbl} Q6H Take 1 [facility] -acetaminop 6-21 06-[address] [facility] ([employer]) 00:00: 00:00 [facility]325 mg 00 :00 every 6 l per tablet (six) hours as needed for moderate pain or severe pain for up to 2 days .acute pain. Max Daily Amount: 4 tablets HYDROcodone 2021-0 2021- No [id number] 1{tbl} Q6H Take 1 [facility] -acetaminop 6-21 06-[address] [facility] ([employer]) 00:00: 00:00 [facility]325 mg 00 :00 every 6 l per tablet (six) hours as needed for moderate pain or severe pain for up to 2 days .acute pain. Max Daily Amount: 4 tablets HYDROcodone 2021-0 2021- No 1{tbl} Q6H Take 1 [facility] -acetaminop 6-21 06-[address] [facility] ([employer]) 00:00: 00:00 [facility]325 mg 00 :00 every 6 l per tablet (six) hours as needed for moderate pain or severe pain for up to 2 days .acute pain. Max Daily Amount: 4 tablets HYDROcodone 2021-0 2021- No [id number] 1{tbl} Q6H Take 1 [facility] -acetaminop 6-21 06-[address] [facility] ([employer]) 00:00: 00:00 [facility]325 mg 00 :00 every 6 l per tablet (six) hours as needed for moderate pain or severe pain for up to 2 days .acute pain. Max Daily Amount: 4 tablets HYDROcodone 2-0 2021- No [id number] 1{tbl} Q6H Take 1 [facility] -acetaminop 6-21 06-[address] [facility] ([employer]) 00:00: 00:00 [facility]-325 mg 00 :00 every 6 l per tablet (six) hours as needed for moderate pain or severe pain for up to 2 days .acute pain. Max Daily Amount: 4 tablets HYDROcodone 2-0 2021- No [id number] 1{tbl} Q6H Take 1 [facility] -acetaminop 6-21 06-[address] [facility] ([employer]) 00:00: 00:00 [facility] 5-325 mg 00 :00 every 6 l per tablet (six) hours as needed for moderate pain or severe pain for up to 2 days .acute pain. Max Daily Amount: 4 tablets HYDROcodone 2022-0 2022- No [id number] 1{tbl} Q6H Take 1 [facility] -acetaminop 6-21 06-[address] [facility] ([employer]) 00:00: 00:00 [facility] 5-325 mg 00 :00 every 6 l per tablet (six) hours as needed for moderate pain or severe pain for up to 2 days .acute pain. Max Daily Amount: 4 tablets HYDROcodone 2022-0 2022- No [id number] 1{tbl} Q6H Take 1 [facility] -acetaminop 6-21 06-[address] [facility] ([employer]) 00:00: 00:00 [facility]325 mg 00 :00 every 6 l per tablet (six) hours as needed for moderate pain or severe pain for up to 2 days .acute pain. Max Daily Amount: 4 tablets HYDROcodone 2022-0 2- No [id number] 1{tbl} Q6H Take 1 [facility] -acetaminop 6-21 06-[address] [facility] ([employer]) 00:00: 00:00 [facility]325 mg 00 :00 every 6 l per tablet (six) hours as needed for moderate pain or severe pain for up to 2 days .acute pain. Max Daily Amount: 4 tablets HYDROcodone 2022-0 2- No [id number] 1{tbl} Q6H Take 1 [facility] -acetaminop 6-21 06-[address] [facility] ([employer]) 00:00: 00:00 [facility]325 mg 00 :00 every 6 l per tablet (six) hours as needed for moderate pain or severe pain for up to 2 days .acute pain. Max Daily Amount: 4 tablets HYDROcodone 2022-0 2022- No [id number] 1{tbl} Q6H Take 1 [facility] -acetaminop 6-21 06-[address] [facility] ([employer]) 00:00: 00:00 [facility]325 mg 00 :00 every 6 l per tablet (six) hours as needed for moderate pain or severe pain for up to 2 days .acute pain. Max Daily Amount: 4 tablets HYDROcodone 2021-0 2021- No [id number] 1{tbl} Q6H Take 1 [facility] -acetaminop 6-21 [...] DAILY WITH MEALS meclizine 2021- No 25mg [id number] Take 1 [facility] ([facility]) 08-26 [id number] tablet (25 st 25 mg 00:00: 00:00 3D mg total) [facility] 00 :00 by mouth 3 l (three) times a day as needed for dizziness for up to 30 days. meclizine 2021- No 25mg Q.[id number] Take 1 [facility] ([facility]) 08-26 [id number] tablet (25 st 25 mg 00:00: 00:00 3D mg total) [facility] a tablet 00 :00 by mouth 3 l (three) times a day as needed for dizziness for up to 30 days. meclizine 2021- No 25mg Q.[id number] Take 1 [facility] ([facility]) 08-26 [id number] tablet (25 st 25 mg 00:00: 00:00 3D mg total) [facility] a tablet 00 :00 by mouth 3 l (three) times a day as needed for dizziness for up to 30 days. meclizine 2021- No 25mg Q.[id number] Take 1 [facility] ([facility]) 08-26 [id number] tablet (25 st 25 mg 00:00: 00:00 3D mg total) [facility] a tablet 00 :00 by mouth 3 l (three) times a day as needed for dizziness for up to 30 days. meclizine 2021-0 2022- No 25mg Q.[id number] Take 1 [facility] ([facility]) 08-26- [id number] tablet (25 st 25 mg 00:00: 00:00 3D mg total) [facility] a tablet 00 :00 by mouth 3 l (three) times a day as needed for dizziness for up to 30 days. meclizine 2021-0 2022- No 25mg Q.[id number] Take 1 [facility] ([facility]) 08-26 [id number] tablet (25 st 25 mg 00:00: 00:00 3D mg total) [facility] a tablet 00 :00 by mouth 3 l (three) times a day as needed for dizziness for up to 30 days. meclizine 2021-0 202- No 25mg Q.[id number] Take 1 [facility] ([facility]) 08-26 [id number] tablet (25 st 25 mg 00:00: 00:00 3D mg total) [facility] a tablet 00 :00 by mouth 3 l (three) times a day as needed for dizziness for up to 30 days. meclizine 2021-0 2- No 25mg Q.[id number] Take 1 [facility] ([facility]) 08-26 [id number] tablet (25 st 25 mg 00:00: 00:00 3D mg total) [facility] tablet 00 :00 by mouth 3 l (three) times a day as needed for dizziness for up to 30 days. meclizine 202-0 2022- No 25mg Q.[id number] Take 1 [facility] ([facility]) 08-26- [id number] tablet (25 st 25 mg 00:00: 00:00 3D mg total) [facility] a tablet 00 :00 by mouth 3 l (three) times a day as needed for dizziness for up to 30 days. meclizine 2021-0 2022- No 25mg Q.[id number] Take 1 [facility] ([facility]) 08-26 [id number] tablet (25 st 25 mg 00:00: 00:00 [...] times a day for 60 days. doxycycline 2-0 2022- No 100mg Take 100 [...] l times a day. acetaminoph 2021- [place] [id number] 1{tbl} Q6H Take 1-2 [facility] en-codeine 4-27 05-[address] ([facility] 00:00: 04:59 [facility] WITH 00 :00 every 6 l CODEINE #3) (six) 300-30 mg hours as per tablet needed for moderate pain for up to 5 days .[place] [id number] 1{tbl} Q6H Take 1-2 [facility]-codeine 4-27 05-[address] ([facility] 00:00: 04:59 [facility] WITH 00 :00 every 6 l CODEINE #3) (six) 300-30 mg hours as per tablet needed for moderate pain for up to 5 days .[place] [id number] 1{tbl} Q6H Take 1-2 [facility]-codeine 4-27 05-[address] ([facility] 00:00: 04:59 [facility] WITH 00 :00 every 6 l CODEINE #3) (six) 300-30 mg hours as per tablet needed for moderate pain for up to 5 days .[place] [id number] 1{tbl} Q6H Take 1-2 [facility]-codeine 4-27 05-[address] ([facility] 00:00: 04:59 [facility] WITH 00 :00 every 6 l CODEINE #3) (six) 300-30 mg hours as per tablet needed for moderate pain for up to 5 days .[place] [id number] 1{tbl} Q6H Take 1-2 [facility]ine 4- 05-[address] ([facility] 00:00: 04:59 [facility] WITH 00 :00 every 6 l CODEINE #3) (six) 300-30 mg hours as per tablet needed for moderate pain for up to 5 [place] [id number] 1{tbl} Q6H Take 1-2 [facility]ine 4- 05-[address] ([facility] 00:00: 04:59 [facility] WITH 00 :00 every 6 l CODEINE #3) (six) 300-30 mg hours as per tablet needed for moderate pain for up to 5 days [place] [id number] 1{tbl} Q6H Take 1-2 [facility]ine 4- 05-[address] ([facility] 00:00: 04:59 [facility] WITH 00 :00 every 6 l CODEINE #3) (six) 300-30 mg hours as per tablet needed for moderate pain for up to 5 days .[place] [id number] 1{tbl} Q6H Take 1-2 [facility] en-codeine 08-06 05-[address] ([facility] 00:00: 04:59 [facility] WITH 00 :00 every 6 l CODEINE #3) (six) 300-30 mg hours as per tablet needed for moderate pain for up to 5 days .acute pain. amoxicillin 2021- No [id number] 500mg Q.5D Take 1 [facility] ([facility]) 07-[address] 500 MG 00:00: 04:59 (500 mg [facility]osp[facility] tablet 00 :00 total) by l mouth 2 (two) times a day for 7 days. amoxicillin 2021- No [id number] 500mg Q.5D Take 1 [facility] ([facility]) 07-[address] 500 MG 00:00: 04:59 (500 mg [facility]osp[facility] tablet 00 :00 total) by l mouth 2 (two) times a day for 7 days. amoxicillin 2021- No [id number] 500mg Q.5D Take 1 [facility] ([facility]) 07-24-[address] 500 MG 00:00: 04:59 (500 mg [facility]osp[facility] tablet 00 :00 total) by l mouth 2 (two) times a day for 7 days. amoxicillin 2021- No [id number] 500mg Q.5D Take 1 [facility] ([facility]) 07-24-[address] 500 MG 00:00: 04:59 (500 mg [facility]osp[facility] tablet 00 :00 total) by l mouth 2 (two) times a day for 7 days. amoxicillin 2021- No [id number] 500mg Q.5D Take 1 [facility] ([facility]) 07-24- tablet st 500 MG 00:00: 04:59 (500 mg [facility] tablet 00 :00 total) by l mouth 2 (two) times a day for 7 days. amoxicillin 2021- No [id number] 500mg Q.5D Take 1 [facility] ([facility]) 07-[address] 500 MG 00:00: 04:59 (500 mg [facility] tablet 00 :00 total) by l mouth 2 (two) times a day for 7 days. amoxicillin 2021- No [id number] 500mg Q.5D Take 1 [facility] ([facility]) 07-[address] 500 MG 00:00: 04:59 (500 mg [facility] tablet 00 :00 total) by l mouth 2 (two) times a day for 7 days. amoxicillin 2021- No [id number] 500mg Q.5D Take 1 [facility] ([facility]) 07-2422 [...] :00 by mouth l daily. amLODIPine 0 2- No 5mg QD Take 1 Meth [...] for up to 30 days. benzonatate 2021-0 202- No 100mg Q8H Take 1 Me thodi [...] hours for 30 days. amoxicillin 2021- No [id number] 500mg Q.5D Take 1 [facility] ([facility]) 06-[address] 500 MG 00:00: 04:59 (500 mg [facility]osp[facility] tablet 00 :00 total) by l mouth in the morning and 1 tablet (500 mg total) before bedtime. Do all this for 7 days. amoxicillin 2021- No [id number] 500mg Q.5D Take 1 [facility] ([facility]) 06-[address] 500 MG 00:00: 04:59 (500 mg [facility] tablet 00 :00 total) by l mouth in the morning and 1 tablet (500 mg total) before bedtime. Do all this for 7 days. amoxicillin 2021- No [id number] 500mg Q.5D Take 1 [facility] ([facility]) 06-[address] 500 MG 00:00: 04:59 (500 mg [facility]osp[facility] tablet 00 :00 total) by l mouth in the morning and 1 tablet (500 mg total) before bedtime. Do all this for 7 days. amoxicillin 2021- No [id number] 500mg Q.5D Take 1 [facility] ([facility]) 06-[address] 500 MG 00:00: 04:59 (500 mg [facility]osp[facility] tablet 00 :00 total) by l mouth in the morning and 1 tablet (500 mg total) before bedtime. Do all this for 7 days. amoxicillin 2021- No [id number] 500mg Q.5D Take 1 [facility] ([facility]) 06-[address] 500 MG 00:00: 04:59 (500 mg [facility]osp[facility] tablet 00 :00 total) by l mouth in the morning and 1 tablet (500 mg total) before bedtime. Do all this for 7 days. amoxicillin 2021- No [id number] 500mg Q.5D Take 1 [facility] ([facility]) 06-[address] 500 MG 00:00: 04:59 (500 mg [facility]osp[facility] tablet 00 :00 total) by l mouth in the morning and 1 tablet (500 mg total) before bedtime. Do all this for 7 days. amoxicillin 2021- No [id number] 500mg Q.5D Take 1 [facility] ([facility]) 06-[address] 500 MG 00:00: 04:59 (500 mg [facility]osp[facility] tablet 00 :00 total) by l mouth in the morning and 1 tablet (500 mg total) before bedtime. Do all this for 7 days. amoxicillin 2021- No [id number] 500mg Q.5D Take 1 [facility] ([facility]) 06-18 [...] meals. amLODIPine 2-0 2- No [facility] ([facility] 2- st 2.5 mg 00:00: 00:00 [facility]osp[facility] tablet 00 :00 l amLODIPine 2022-0 2022- No [facility] ([facility]) 207-15 st 2.5 mg 00:00: 00:00 [facility]osp[facility] tablet [...] l amLODIPine 2022-0 2021- No [facility] ([facility]) 2- 04-05 st 2.5 mg 00:00: 00:00 [facility]osp[facility] tablet 00 :00 l amLODIPine 2022-0 2021- No [facility] ([facility]) 2- 04-05 st 2.5 mg 00:00: 00:00 [facility]ospita tablet 00 :00 l HYDROcodone 2022-0 2021- No [id number] 1{tbl} Q6H Take 1 [facility] -acetaminop 1-04 05- tablet by [facility] ([employer]) 00:00: 05:59 [facility] 5-325 mg 00 :00 every 6 l per tablet (six) hours as needed for moderate pain for up to 5 days .acute pain. Max Daily Amount: 4 tablets HYDROcodone 2022-0 2021- No [id number] 1{tbl} Q6H Take 1 [facility] -acetaminop 1-04 05-[address] [facility] ([employer]) 00:00: 05:59 [facility] 5-325 mg 00 :00 every 6 l per tablet (six) hours as needed for moderate pain for up to 5 days .acute pain. Max Daily Amount: 4 tablets HYDROcodone 2-0 2021- No [id number] 1{tbl} Q6H Take 1 [facility] -acetaminop 1-04 05- tablet by [facility] ([employer]) 00:00: 05:59 [facility] 5-325 mg 00 :00 every 6 l per tablet (six) hours as needed for moderate pain for up to 5 days .acute pain. Max Daily Amount: 4 tablets HYDROcodone 2022-0 2021- [place] [id number] 1{tbl} Q6H Take 1 [facility] -acetaminop 1-04 05-[address] [facility] ([employer]) 00:00: 05:59 [facility] 5-325 mg 00 :00 every 6 l per tablet (six) hours as needed for moderate pain for up to 5 days .acute pain. Max Daily Amount: 4 tablets HYDROcodone 2022-0 2021- No [id number] 1{tbl} Q6H Take 1 [facility] -acetaminop 1-04 05-[address] [facility] ([facility]) 00:00: 05:59 [facility] 5-325 mg 00 :00 every 6 l per tablet (six) hours as needed for moderate pain for up to 5 days .acute pain. Max Daily Amount: 4 tablets HYDROcodone 1{tbl} Q6H Take 1 [facility] -acetaminop 05-[address] [facility] ([facility]) 00:00: 05:59 [facility] 5-325 mg [...] to 15 days [place] [id number] 1{tbl} Q6H Take 1-2 [facility] en-codeine 05-[address] ([facility]LENOL 00:00: 00:00 mouth [facility] WITH 00 :00 every 6 l CODEINE #3) (six) 300-30 mg hours as per tablet needed for moderate pain for up to 15 days .[place]. [place] [id number] 1{tbl} Q6H Take 1-2 [facility] en-codeine 05-04 [...] pain for up to 30 doses. ibuprofen 202-0 2022- No 600mg Q6H Take 1 Meth [...] pain for up to 30 doses. ibuprofen 202-0 2022- No 600mg Q6H Take 1 Meth [...] to 5 days [place] [id number] 50mg Q6H Take 1 [facility] (ULTRAM) 50 04-12 tablet (50 s t mg tablet 00:00: 00:00 mg total) [facility] 00 :00 by mouth l every 6 (six) hours as needed for moderate pain for up to 5 days .acute pain. traMADoL 2021- No [id number] 50mg Q6H Take 1 [facility] (ULTRAM) 50 04-12 tablet (50 s t mg tablet 00:00: 00:00 mg total) [facility] 00 :00 by mouth l every 6 (six) hours as needed for moderate pain for up to 5 days [place] [id number] 50mg Q6H Take 1 [facility] (ULTRAM) [...] QD Take 1 [facility] ([facility]) 1-10 01-[address] 2.5 mg 00:00: 00:00 (2.5 [...] as needed for Itching or Anxiety. hydrOXYzine 2019- Yes Anxiety 10mg Take 1 [facility] (ATARAX) 10 0-26 tablet by [facility]: mouth 3 00 times daily as needed for Itching or Anxiety. hydrOXYzine 2019- Yes Anxiety 10mg Take 1 [facility] ([facility]ARAX) 10 0-26 tablet by [facility] tablet 00:00: mouth 3 00 times daily as needed for Itching or Anxiety. baclofen 2020-0 Yes Neck pain 10mg Take 1 Maria rris (LIORESAL) 9-24 tablet by [facility] 10 mg 00:00: mouth 2 tablet 00 times daily as needed (muscle spasms) STOP [facility] kasia (FLEXERIL) 10 mg tablet. baclofen 2020-0 Yes Neck pain 10mg Take 1 [facility] rris (LIORESAL) 9-24 tablet by [facility] 10 mg 00:00: mouth 2 tablet 00 times daily as needed (muscle spasms) STOP [facility] ([facility]) 10 mg tablet. baclofen 2020-0 Yes Neck pain 10mg Take 1 [facility] rris (LIORESAL) 9-24 tablet by [facility] 10 mg 00:00: mouth 2 tablet 00 times daily as needed (muscle spasms) STOP [facility] ([facility]) 10 mg tablet. baclofen 2020-0 Yes Neck pain 10mg Take 1 [facility] (LI[facility]ESAL) 9-24 tablet by [facility] 10 mg 00:00: mouth 2 tablet 00 times daily as needed (muscle spasms) STOP [facility] ([facility]) 10 mg tablet. baclofen 2020-0 Yes Neck pain 10mg Take 1 [facility] (LIORESAL) 9-24 tablet by [facility] 10 mg 00:00: mouth 2 tablet 00 times daily as needed (muscle spasms) STOP [facility] ([facility]) 10 mg tablet. baclofen 2020-0 Yes Neck pain 10mg Take 1 [facility] rris (LIORESAL) 9-24 tablet by [facility] 10 mg 00:00: mouth 2 tablet 00 times daily as needed (muscle spasms) STOP [facility] (FLEXERIL) 10 mg tablet. baclofen 2020-0 Yes Neck pain 10mg Take 1 Maria rris (LIORESAL) 9-24 tablet by [facility] 10 mg 00:00: mouth 2 tablet 00 times daily as needed (muscle spasms) STOP [facility] ([facility]IL) 10 mg tablet. baclofen 2020-0 Yes Neck pain 10mg Take 1 Maria rris (LIORESAL) 9-24 tablet by [facility] 10 mg 00:00: mouth 2 tablet 00 times daily as needed (muscle spasms) STOP [facility] ([facility]IL) 10 mg tablet. baclofen 2020-0 Yes Neck pain 10mg Take 1 [facility] rris (LIORESAL) 9-24 tablet by [facility] 10 mg 00:00: mouth 2 tablet 00 times daily as needed (muscle spasms) STOP [facility] ([facility]IL) 10 mg tablet. baclofen 2020-0 Yes Neck pain 10mg Take 1 [facility] rris (LIORESAL) 9-24 tablet by [facility] 10 mg 00:00: mouth 2 tablet 00 times daily as needed (muscle spasms) STOP [facility] ([facility]LEXERIL) 10 mg tablet. baclofen 2020-0 Yes Neck pain 10mg Take 1 [facility] rris (LIORESAL) 9-24 tablet by [facility] 10 mg 00:00: mouth 2 tablet 00 times daily as needed (muscle spasms) STOP [facility] (FLEXERIL) 10 mg tablet. amitriptyli 2020-0 Yes Neck pain 25mg Take 1 Mahmood ne (ELAVIL) 9-03 tablet by [facility] 25 mg 00:00: mouth at tablet [...] 1 Mahmood ne (ELAVIL) 9-03 tablet by [facility] lt 25 mg 00:00: mouth at tablet [...] 2020-0 Yes Encounter Start Mahmood (CHANTIX) 1 - for smoking taking Health [...] 2020-0 Yes Encounter Start Mahmood (CHANTIX) 1 - for smoking taking Health [...] 1 Maria rris azole-trime 9-24 tablet by [facility] thoprim 08:09: mouth 2 (BACTRIM 11 times DS) 800-160 daily. mg per tablet MULTIVITAMI 2019-0 Yes Take by [facility] ris N (DAILY 9-24 mouth. Health VITAMIN OR) 08:09: 11 sulfamethox 2019-0 Yes 1{tbl} Q.5D Take 1 [facility] azole-trime 9-24 tablet by [facility] thoprim 08:09: mouth 2 (BACTRIM 11 times DS) 800-160 daily. mg per tablet MULTIVITAMI 2019-0 Yes Take by [facility] N (DAILY 9-24 mouth. Health VITAMIN OR) 08:09: 11 sulfamethox 2019-0 Yes 1{tbl} Q.5D Take 1 [facility] rris azole-trime 9-24 tablet by [facility] thoprim 08:09: mouth 2 (BACTRIM 11 times DS) 800-160 daily. mg per tablet MULTIVITAMI 2019-0 Yes Take by Tom [facility] N (DAILY 9-24 mouth. Health VITAMIN OR) 08:09: 11 sulfamethox 2019-0 Yes 1{tbl} Q.5D Take 1 [facility] rris azole-trime 9-24 tablet by [facility] thoprim 08:09: mouth 2 (BACTRIM 11 times DS) 800-160 daily. mg per tablet MULTIVITAMI 2019-0 Yes Take by [facility] N (DAILY 9-24 mouth. Health VITAMIN OR) 08:09: 11 sulfamethox 2019-0 Yes 1{tbl} Q.5D Take 1 [facility] rris azole-trime 9-24 tablet by [facility] thoprim 08:09: mouth 2 (BACTRIM 11 times DS) 800-160 daily. mg per tablet MULTIVITAMI 2019-0 Yes Take by [facility] N (DAILY 9-24 mouth. Health VITAMIN OR) 08:09: 11 sulfamethox 2019-0 Yes 1{tbl} Q.5D Take 1 [facility] azole-trime 9-24 tablet by [facility] thoprim 08:09: mouth 2 (BACTRIM 11 times DS) 800-160 daily. mg per tablet MULTIVITAMI 2019-0 Yes Take by [facility] N (DAILY 9-24 mouth. Health VITAMIN OR) 08:09: 11 sulfamethox 2019-0 Yes 1{tbl} Q.5D Take 1 [facility] azole-trime 9-24 tablet by [facility] thoprim 08:09: mouth 2 (BACTRIM 11 times DS) 800-160 daily. mg per tablet MULTIVITAMI 2019-0 Yes Take by [facility] N (DAILY 9-24 mouth. Health VITAMIN OR) 08:09: 11 sulfamethox 2019-0 Yes 1{tbl} Q.5D Take 1 [facility] (BACTRIM 11 times [...] 2 times mg/gram weekly. vaginal cream silver 0 Yes Desquamated Apply Tom ris sulfADIAZIN 4-29 [...] QUAD PF 2021-02-[address] 00:00:00 [facility] FLUCELVAX QUAD PF 2021-02-[address] 00:00:00 [facility] FLUCELVAX QUAD PF 2021-02-[address] 00:00:00 [facility] FLUCELVAX QUAD PF 2021-02-[address] 00:00:00 [facility] FLUCELVAX QUAD PF 2021-02-[address] 00:00:00 [facility] FLUCELVAX QUAD PF 2021-02-[address] 00:00:00 [facility] FLUCELVAX QUAD PF 2021-02-[address] [facility]:00 [facility] FLUCELVAX QUAD PF 2021-02-[address] 00:00:00 [facility] FLUCELVAX QUAD PF 2021-02-[address] 00:00:00 [facility] FLUCELVAX QUAD PF 2021-02-[address] 00:00:00 [facility] FLUCELVAX QUAD PF 2021-02-[address] 00:00:00 [facility] PFIZER COVID-19 MRNA 2020-08-05 Completed [facility] VACCINATION 00:00:00 [facility] PFIZER COVID-19 MRNA 2020-08-05 Completed [facility] VACCINATION 00:00:00 [facility] PFIZER COVID-19 MRNA 2020-08-05 Completed [facility] VACCINATION 00:00:00 [facility] PFIZER COVID-19 MRNA 2020-08-05 Completed [facility] VACCINATION 00:00:00 [facility] PFIZER COVID-19 MRNA 2020-08-05 Completed [facility] VACCINATION 00:00:00 [facility] PFIZER COVID-19 MRNA 2020-08-05 Completed [facility] VACCINATION 00:00:00 [facility] PFIZER COVID-19 MRNA 2020-08-05 Completed [facility] VACCINATION 00:00:00 [facility] PFIZER COVID-19 MRNA 2020-08-05 Completed [facility] VACCINATION 00:00:00 [facility] PFIZER COVID-19 MRNA 2020-08-05 Completed [facility] VACCINATION 00:00:00 [facility] PFIZER COVID-19 MRNA 2020-08-05 Completed [facility] VACCINATION 00:00:00 [facility] PFIZER COVID-19 MRNA 2020-08-05 Completed [facility] VACCINATION 00:00:00 [facility] PFIZER COVID-19 MRNA 2020-07-08 Completed [facility] VACCINATION 00:00:00 [facility] PFIZER COVID-19 MRNA 2020-07-08 Completed [facility] VACCINATION 00:00:00 [facility] PFIZER COVID-19 MRNA 2020-07-08 Completed [facility] VACCINATION 00:00:00 [facility] PFIZER COVID-19 MRNA 2020-07-08 Completed [facility] VACCINATION 00:00:00 [facility] PFIZER COVID-19 MRNA 2020-07-08 Completed [facility] VACCINATION 00:00:00 [facility] PFIZER COVID-19 MRNA 2020-07-08 Completed [facility] VACCINATION 00:00:00 [facility] PFIZER COVID-19 MRNA 2020-07-08 Completed [facility] VACCINATION 00:00:00 [facility] PFIZER COVID-19 MRNA 2020-07-08 Completed [facility] VACCINATION 00:00:00 [facility] PFIZER COVID-19 MRNA 2020-07-08 Completed [facility] VACCINATION 00:00:00 [facility] PFIZER COVID-19 MRNA 2020-07-08 Completed [facility] VACCINATION 00:00:00 [facility] PFIZER COVID-19 MRNA 2020-07-08 Completed [facility]:00 Hospital Influenza, 2020-03-12 Completed [facility] Vaccine<FLUCELVAX>(M [...] Vaccine<FLUCELVAX>(M 00:00:00 ulti-Dose) Tdap (Tetanus 2020-03-12 Completed [facility] th Toxoid, Reduced 00:00:00 Diphtheria Toxoid And Acellular Pertussis, Absorbed) Influenza, 2020-03-12 Completed [facility] Vaccine<FLUCELVAX>(M 00:00:00 ulti-Dose) Tdap (Tetanus 2020-03-12 Completed [facility] Toxoid, Reduced 00:00:00 Diphtheria Toxoid And Acellular Pertussis, Absorbed) Influenza, 2020-03-12 Completed [facility] Vaccine<FLUCELVAX>(M 00:00:00 ulti-Dose) Tdap (Tetanus 2020-03-12 Completed [facility] th Toxoid, Reduced 00:00:00 Diphtheria Toxoid And Acellular Pertussis, Absorbed) Influenza, 2020-03-12 Completed [facility] Vaccine<FLUCELVAX>(M 00:00:00 ulti-Dose) Tdap (Tetanus 2020-03-12 Completed [facility] Toxoid, Reduced 00:00:00 Diphtheria Toxoid And Acellular Pertussis, Absorbed) Influenza, 2020-03-12 Completed [facility] Vaccine<FLUCELVAX>(M 00:00:00 ulti-Dose) Tdap (Tetanus 2020-03-12 Completed [facility] Toxoid, Reduced 00:00:00 Diphtheria Toxoid And Acellular Pertussis, Absorbed) Influenza, 2020-03-12 Completed [facility] Vaccine<FLUCELVAX>(M 00:00:00 ulti-Dose) Tdap (Tetanus 2020-03-12 Completed [facility] Toxoid, Reduced 00:00:00 Diphtheria Toxoid And Acellular Pertussis, Absorbed) Influenza, 2020-03-12 Completed [facility] Vaccine<FLUCELVAX>(M 00:00:00 ulti-Dose) Tdap (Tetanus 2020-03-12 Completed [facility] Toxoid, Reduced 00:00:00 Diphtheria Toxoid And Acellular Pertussis, Absorbed) Influenza, 2020-03-12 Completed [facility] Vaccine<FLUCELVAX>(M 00:00:00 ulti-Dose) Tdap (Tetanus 2020-03-12 Completed [facility] Toxoid, Reduced 00:00:00 Diphtheria Toxoid And Acellular Pertussis, Absorbed) Vital Signs Vital Name Observation Time Observation Value Comments Source Systolic blood 2022-02-20 01:13:29 129 mm[Hg] [facility] pressure Diastolic blood 2022-02-20 01:13:29 67 mm[Hg] [facility] pressure Heart rate 2022-02-20 01:13:29 60 /min [facility] Respiratory rate 2022-02-20 01:13:29 18 /min [facility] Oxygen saturation in 2022-02-20 01:13:29 96 /min [facility] Arterial blood by Pulse oximetry Body height 2022-02-19 20:30:00 162.6 cm [facility] Body weight 2022-02-19 20:30:00 79.379 kg [facility] BMI 2022-02-19 20:30:00 30.04 kg/m2 [facility] Body temperature 2022-02-19 20:29:09 36.61 Nydia [facility] pulse rate 2021-12-16 13:21:49 87 /min [facility] blood pressure, 2021-12-16 13:21:49 67 mm[Hg] [facility] blood pressure, 2021-12-16 13:21:49 132 mm[Hg] [facility] pulse rate 2020-11-25 14:31:56 70 /min [facility] blood pressure, 2020-11-25 14:31:56 74 mm[Hg] [facility] blood pressure, 2020-11-25 14:31:56 113 mm[Hg] [facility] systolic Health pulse rate 2020-11-25 13:39:38 70 /min [facility] blood pressure, 2020-11-25 13:39:38 74 mm[Hg] [facility] diastolic Health blood pressure, 2020-11-25 13:39:38 113 mm[Hg] [facility] systolic Health Procedures Procedure Date / Time Performing Source Performed Clinician CT CHEST WO CONTRAST ABDOMEN WO 2022-02-20 Cristóbal Ovalle CONTRAST PELVIS WO CONTRAST 01:47:08 [facility] ital ECG ED PRELIMINARY INTERPRETATION 2022-02-20 Cristóbal Ovalle 01:34:30 [facility] CBC WITH PLATELET AND DIFFERENTIAL 2022-02-19 Pa Manning Judaism 21:40:00 [facility] COMPREHENSIVE METABOLIC PANEL 2022-02-19 Alee Manning Az thodist 21:40:00 [facility] HCG QUALITATIVE, SERUM SCREEN 2022-02-19 Alee Manning Az [facility]ist 21:40:00 Hospital ESTIMATED GFR 2022-02-19 Alee Manning 21:40:00 [facility] ECG 12-LEAD 2022-02-19 Alee Manning 20:46:22 [...] Hospital RPR WITH REFLEX TO TITER 2022-02-05 PrasanthEddie cesar 15:30:00 [facility] HEPATITIS C VIRUS (HCV), 2022-02-05 Eddie Farris QUANTITATIVE PCR 15:30:00 Hospital HIV 1/2 ANTIGEN/ANTIBODY, FOURTH 2022-02-05 Eddie Farris GENERATION, WITH REFLEXES 15:30:00 Hospit al ZZHSV 1 AND 2 SPECIFIC AB IGG 2022-02-05 Eddie Farris Az thodist 15:30:00 Hospital SURGICAL PATHOLOGY REQUEST 2021-12-26 Esthela Small Az [facility]odist 18:06:00 Hospital COLONOSCOPY 2021-12-26 Esthela Small Judaism 15:44:00 [facility] ESOPHAGOGASTRODUODENOSCOPY (EGD) 2021-12-26 Esthela Small 15:44:00 [facility] COVID-19 QUALITATIVE RT-PCR 2021-12-24 Esthela Small ethodist 12:41:00 [facility] THINPREP TIS AND HPV MRNA E6/E7 2021-12-18 Eddie Farris 18:34:00 [facility] ECG 12-LEAD 2021-11-28 Keith Carroll 15:26:34 [facility] TROPONIN T 2021-11-07 Zeyad Cohen 20:01:00 [facility] COVID-19 QUALITATIVE RT-PCR 2021-11-07 Zeyad Cohen 19:09:00 [facility] COVID-19 OMICRON VARIANT 2021-11-07 Zeyad Cohen QUALITATIVE RT-PCR 19:09:00 [facility] XR CHEST 2 VW 2021-11-07 Zeyad Cohen 18:51:38 [facility] ECG ED PRELIMINARY INTERPRETATION 2021-11-07 Karo Cohen 18:50:27 [facility] COMPREHENSIVE METABOLIC PANEL 2021-11-07 Zeyad Cohen thodist 18:03:00 [facility] TROPONIN T 2021-11-07 Zeyad Cohen 18:03:00 [facility] CBC WITH PLATELET AND DIFFERENTIAL 2021-11-07 Ed Cohen 18:03:00 [facility] HCG QUALITATIVE, SERUM SCREEN 2021-11-07 Zeyad Cohen Az thodist 18:03:00 [facility] ESTIMATED GFR 2021-11-07 Zeyad Cohen Judaism 18:03:00 [facility] ECG 12-LEAD 2021-11-07 Guido Herrerasonya Judaism 17:57:16 Hospital FL UGI W OR WO KUB 2021-11-03 Esthela Small [facility] 15:16:30 Hospital HEPATITIS C VIRUS (HCV), 2021-11-03 Esthela Small [facility] QUANTITATIVE PCR 13:52:00 Hospital HEPATIC FUNCTION PANEL 2021-11-03 Esthela Small Method ist 13:52:00 Hospital XR CHEST 2 VW 2021-10-15 José Riderist 02:52:42 [facility] COMPREHENSIVE METABOLIC PANEL 2021-10-15 Mario Maher thodist 01:15:00 [facility] TROPONIN T 2021-10-15 Mario Maher 01:15:00 [facility] B NATRIURETIC PEPTIDE 2021-10-15 Mario Maher 01:15:00 [facility] CBC WITH PLATELET AND DIFFERENTIAL 2021-10-15 Marques Maher 01:15:00 [facility] PROTHROMBIN TIME WITH INR 2021-10-15 Mario Maher ist 01:15:00 [facility] PARTIAL THROMBOPLASTIN TIME (PTT) 2021-10-15 Mario Maher 01:15:00 [facility] ESTIMATED GFR 2021-10-15 Mario Maher 01:15:00 [facility] ECG 12-LEAD 2021-10-15 Mario Maher 00:33:[address] [facility] [address] ANGIOGRAM PE CHEST 2021-10-12 Trung Hudson 17:55:52 Hospital CBC WITH PLATELET AND DIFFERENTIAL 2021-10-12 Trung Hudson 15:36:00 Hospital COMPREHENSIVE METABOLIC PANEL 2021-10-12 Trung Hudsonodi 15:36:00 Hospital TROPONIN T 2021-10-12 Trung Hudson 15:36:00 Hospital B NATRIURETIC PEPTIDE 2021-10-12 Trung Hudson 15:36:00 Hospital CREATINE KINASE, TOTAL (CPK) 2021-10-12 Trung Hudson Az thodist 15:36:00 Hospital ESTIMATED GFR 2021-10-12 Trung Hudson 15:36:00 [facility] ECG ED PRELIMINARY INTERPRETATION 2021-10-12 Trung Hudson 15:20:39 Hospital URINE CULTURE 2021-10-12 Rajinder Ordoñez 15:17:00 [facility] URINALYSIS SCREEN AND MICROSCOPY, 2021-10-12 Arslan Ordoñez WITH REFLEX TO CULTURE 15:17:00 [facility] HCG QUALITATIVE, URINE SCREEN 2021-10-12 Rajinder Ordoñez 15:17:00 [facility] ECG 12-LEAD 2021-10-12 Rajinder Ordoñez 14:48:50 [facility] [place] AN ELECTIVE SUPRAGLOTTIC AIRWAY 2021-09-30 Ruddy Marie 12:10:00 Hospital DECOMPRESSION, ULNAR NERVE 2021-09-30 Rebecca Brownlee 12:06:00 [facility] COVID-19 QUALITATIVE RT-PCR 2021-09-26 Dulce Maria Pierre 14:23:00 [facility] PROTHROMBIN TIME WITH INR 2021-09-26 Antonio Pierret 14:23:00 [facility] PARTIAL THROMBOPLASTIN TIME (PTT) 2021-09-26 Keith Pierre 14:23:00 [facility] COMPREHENSIVE METABOLIC PANEL 2021-09-26 Me Gabby thodist 14:23:00 [facility] ESTIMATED GFR 2021-09-26 Rebecca Brownlee 14:23:00 [facility] HEMOGLOBIN A1C 2021-09-26 Rebecca Brownlee 14:23:00 [facility] CBC WITH PLATELET AND DIFFERENTIAL 2021-09-19 Lexie Esparza 07:10:00 Hospital THYROID STIMULATING HORMONE 2021-09-19 Peggy Esparza 07:10:00 [facility] CBC WITH PLATELET AND DIFFERENTIAL 2021-09-19 Lexie Esparza 07:10:00 [facility] XR ELBOW 3+ VW LEFT 2021-09-10 Rebecca Brownlee 15:28:[address] [facility] [address] ANGIOGRAM NECK W WO CONTRAST 2021-08-27 Brenda Retana 00:01:[address] [facility] [address] ANGIOGRAM HEAD W WO CONTRAST 2021-08-27 Brenda Retana 00:00:[address] [facility] [address] HEAD WO CONTRAST 2021-08-26 Brenda Retana 23:42:36 [facility] ECG ED PRELIMINARY INTERPRETATION 2021-08-26 Brenda Retana 23:22:45 [facility] CBC WITH PLATELET AND DIFFERENTIAL 2021-08-26 Willie Retana 21:57:00 [facility] COMPREHENSIVE METABOLIC PANEL 2021-08-26 Brenda Retana thodist 21:57:00 [facility] TROPONIN T 2021-08-26 Brenda Retana 21:57:00 [facility] B NATRIURETIC PEPTIDE 2021-08-26 Brenda Retana 21:57:00 [facility] HCG QUALITATIVE, SERUM SCREEN 2021-08-26 Brenda Retana thodist 21:57:00 [facility] ESTIMATED GFR 2021-08-26 Brenda Retana 21:57:00 [facility] ECG 12-LEAD 2021-08-26 Brenda Retana 21:42:16 [facility] URINE CULTURE 2021-08-06 Myles Martin 22:27:00 [facility] URINALYSIS SCREEN AND MICROSCOPY, 2021-08-06 Myles Martin Si WITH REFLEX TO CULTURE 22:27:00 [facility] XR CHEST 2 VW 2021-08-06 Myles Martin 20:36:00 [facility] INFLUENZA ANTIGEN 2021-08-06 Susie Melton 20:10:00 [facility] RESPIRATORY PATHOGEN PANEL WITH 2021-08-06 Susie Melton COVID-19 RT-PCR 20:10:00 [facility] ECG ED PRELIMINARY INTERPRETATION 2021-08-06 Myles Martin Si 20:08:02 [facility] COMPREHENSIVE METABOLIC PANEL 2021-08-06 Susie Melton thodist 20:05:00 [facility] CBC WITH PLATELET AND DIFFERENTIAL 2021-08-06 Montserrat Melton 20:05:00 [facility] TROPONIN T 2021-08-06 Susie Melton 20:05:00 [facility] LIPASE LEVEL 2021-08-06 Susie Melton 20:05:00 [facility] ESTIMATED GFR 2021-08-06 Susie Melton Judaism 20:05:00 [facility] ECG 12-LEAD 2021-08-06 Susie Melton Judaism 19:55:29 [facility] TROPONIN T 2021-08-01 Brenda Retana 03:32:00 [facility] ECG ED PRELIMINARY INTERPRETATION 2021-08-01 Nelson Villagran Aram william Judaism 02:37:45 Hospital CBC WITH PLATELET AND DIFFERENTIAL 2021-08-01 Willie Retana 00:35:00 [facility] COMPREHENSIVE METABOLIC PANEL 2021-08-01 Brenda Retana thodi 00:35:00 [facility] TROPONIN T 2021-08-01 Brenda Retanaist 00:35:00 [facility] B NATRIURETIC PEPTIDE 2021-08-01 Brenda Retana 00:35:00 [facility] ESTIMATED GFR 2021-08-01 Brenda Retana 00:35:00 [facility] ECG 12-LEAD 2021-08-01 Brenda Retana 00:23:19 [facility] TROPONIN T 2021-07-30 Jaida Sales 21:35:00 Hospital ECG ED PRELIMINARY INTERPRETATION 2021-07-30 Myles Martin Si Judaism 19:53:48 Hospital XR CHEST 2 VW 2021-07-30 Myles Martin Judaism 19:37:56 Hospital COMPREHENSIVE METABOLIC PANEL 2021-07-30 Jaida Sales 18:40:00 Hospital CBC WITH PLATELET AND DIFFERENTIAL 2021-07-30 Jaida Sales 18:40:00 Hospital TROPONIN T 2021-07-30 Jaida Sales 18:40:00 Hospital B NATRIURETIC PEPTIDE 2021-07-[address] 18:40:00 Hospital ESTIMATED GFR 2021-07-30 Jaida Sales 18:40:00 Hospital ECG 12-LEAD 2021-07-30 Jaida Sales 18:33:57 [facility] MAMMO BREAST SCREEN TOMOSYNTHESIS 2021-07-28 Shell Vargas Judaism BILATERAL 14:20:00 [facility] ECG ED PRELIMINARY INTERPRETATION 2021-07-01 Nelson Villagran Aram Alvarezist 00:04:28 Hospital TROPONIN T 2021-06-30 Mario Maher 23:09:00 [facility] RESPIRATORY PATHOGEN PANEL WITH 2021-06-30 Mario Maher COVID-19 RT-PCR 21:09:00 [facility] XR CHEST 2 VW 2021-06-30 Mario Maher 20:40:51 [facility] COMPREHENSIVE METABOLIC PANEL 2021-06-30 Mario Maher Az thodist 20:06:00 [facility] TROPONIN T 2021-06-30 Mario Maher 20:06:00 [facility] B NATRIURETIC PEPTIDE 2021-06-30 Mario Maher 20:06:00 [facility] CBC WITH PLATELET AND DIFFERENTIAL 2021-06-30 Marques Maher 20:06:00 [facility] ESTIMATED GFR 2021-06-30 Mario Maher 20:06:00 [facility] ECG 12-LEAD 2021-06-30 Mario Maher 19:54:19 [facility] POC URINALYSIS DIPSTICK 2021-06-16 Eddie Farris t 18:20:00 [facility] THINPREP TIS PAP AND HPV MRNA 2021-06-16 Eddie Farris Az thodist E6/E7 REFLEX HPV 16,18/45 18:17:00 Hospit al URINALYSIS, COMPLETE, WITH REFLEX 2021-06-16 Eddie Farrisist TO CULTURE 17:55:00 [facility] XR SHOULDER 2+ VW RIGHT 2021-06-02 Roger Ling t 17:52:26 [facility] MRI LUMBAR SPINE WO CONTRAST 2021-05-09 Shell Vargas Met hodist 18:44:08 [facility] MRI CERVICAL SPINE WO CONTRAST 2021-05-05 Shell Vargas ethodist 14:11:49 [facility] CT LUMBAR SPINE WO CONTRAST 2021-05-04 [...] ED PRELIMINARY INTERPRETATION 2021-04-12 Shine Lui 21:47:56 [facility] Plan of Care Planned Activity Planned Date Details Comments Source Future Scheduled 2024-09-11 [facility]:00 malignant neoplasm of cervix (procedure) [code = 221292768] Future Scheduled 2024-09-11 [facility] 00:00:00 malignant neoplasm of cervix (procedure) [code = 998922957] Future Scheduled 2024-09-11 [facility] 00:00:00 malignant neoplasm of cervix (procedure) [code = 837180983] Future Scheduled 2024-09-11 [facility] 00:00:00 malignant neoplasm of cervix (procedure) [code = 339316524] Future Scheduled 2024-09-11 [facility] 00:00:00 malignant neoplasm of cervix (procedure) [code = 972918659] Future Scheduled 2024-09-11 [facility] 00:00:00 malignant neoplasm of cervix (procedure) [code = 424085403] Future Scheduled 2024-09-11 [facility] 00:00:00 malignant neoplasm of cervix (procedure) [code = 654000297] Future Scheduled 2024-09-11 [facility] 00:00:00 malignant neoplasm of cervix (procedure) [code = 303109838] Future Scheduled 2024-09-11 [facility] 00:00:00 malignant neoplasm of cervix (procedure) [code = 500424332] Future Scheduled 2024-09-11 [facility] 00:00:00 malignant neoplasm of cervix (procedure) [code = 049483898] Future Scheduled 2024-09-11 [facility] 00:00:00 malignant neoplasm of cervix (procedure) [code = 139867437] Future Scheduled 2024-09-11 [facility] 00:00:00 malignant neoplasm of cervix (procedure) [code = 163596733] Future Scheduled 2024-09-11 [facility] 00:00:00 malignant neoplasm of cervix (procedure) [code = 710792596] Future Scheduled 2024-09-11 [facility] 00:00:00 malignant neoplasm of cervix (procedure) [code = 688718909] Future Scheduled 2024-09-11 [facility] 00:00:00 malignant neoplasm of cervix (procedure) [code = 631748484] Future Scheduled 2024-09-11 [facility] 00:00:00 malignant neoplasm of cervix (procedure) [code = 757759558] Future Scheduled 2024-09-11 [facility] 00:00:00 malignant neoplasm of cervix (procedure) [code = 623931736] Future Scheduled 2024-09-11 [facility] 00:00:00 malignant neoplasm of cervix (procedure) [code = 703226568] Future Scheduled 2024-09-11 [facility] 00:00:00 malignant neoplasm of cervix (procedure) [code = 878805760] Future Scheduled 2024-09-11 [facility] 00:00:00 malignant neoplasm of cervix (procedure) [code = 406731782] Future Scheduled 2024-09-11 [facility] 00:00:00 malignant neoplasm of cervix (procedure) [code = 225312479] Future Scheduled 2024-09-11 [facility] 00:00:00 malignant neoplasm of cervix (procedure) [code = 335325602] Future Scheduled 2023-01-10 IMM Influenza Seasonal H [...] Influenza Seasonal (>/= 19 yrs)] Future Scheduled 2022-10-02 HEPATITIS B VACCINES [facility] Test 12:32:01 (1 of 3 - 3-dose series) [code = HEPATITIS B VACCINES (1 of 3 - 3-dose series)] Future Scheduled 2022-10-02 Pneumococcal Vaccine: [facility] Test 12:32:01 Pediatrics (0 to 5 Years) and At-Risk Patients (6 to 64 Years) (1 - PCV) [code = Pneumococcal Vaccine: Pediatrics (0 to 5 Years) and At-Risk Patients (6 to 64 Years) (1 - PCV)] Future Scheduled 2022-10-02 SHINGLES VACCINES (1 [facility] Test 12:32:01 of 2) [code = SHINGLES VACCINES (1 of 2)] Future Scheduled 2022-10-02 COVID-19 VACCINE (3 - [facility] Test 12:32:01 Pfizer series) [code = COVID-19 VACCINE (3 - Pfizer series)] Future Scheduled 2022-10-02 BREAST CANCER [facility] Test 12:32:01 SCREENING [code = BREAST CANCER SCREENING] Future Scheduled 2022-10-02 INFLUENZA VACCINE Method [facility] Test 12:32:01 [code = INFLUENZA VACCINE] Future Scheduled 2022-10-02 Screening for [facility] Test 12:32:01 malignant neoplasm of cervix (procedure) [code = 834920297] Future Scheduled 2022-09-11 HEPATITIS B VACCINES [facility] Test 08:52:14 (1 of 3 - 3-dose series) [code = HEPATITIS B VACCINES (1 of 3 - 3-dose series)] Future Scheduled 2022-09-11 Pneumococcal Vaccine: [facility] Test 08:52:14 Pediatrics (0 to 5 Years) and At-Risk Patients (6 to 64 Years) (1 - PCV) [code = Pneumococcal Vaccine: Pediatrics (0 to 5 Years) and At-Risk Patients (6 to 64 Years) (1 - PCV)] Future Scheduled 2022-09-11 COLONOSCOPY SCREENING [facility] Test 08:52:14 [code = COLONOSCOPY SCREENING] Future Scheduled 2022-09-11 SHINGLES VACCINES (1 Met [facility] Test 08:52:14 of 2) [code = SHINGLES VACCINES (1 of 2)] Future Scheduled 2022-09-11 COVID-19 VACCINE (3 - [facility] Test 08:52:14 Booster for Pfizer series) [code = COVID-19 VACCINE (3 - Booster for Pfizer series)] Future Scheduled 2022-09-11 BREAST CANCER [facility] Test 08:52:14 SCREENING [code = BREAST CANCER SCREENING] Future Scheduled 2022-09-11 INFLUENZA VACCINE [facility] Test 08:52:14 [code = INFLUENZA VACCINE] Future Scheduled 2022-09-11 Screening for [facility] Test 08:52:14 malignant neoplasm of cervix (procedure) [code = 889734692] Future Scheduled 2022-08-06 HEPATITIS B VACCINES [facility] Test 21:07:15 (1 of 3 - 3-dose series) [code = HEPATITIS B VACCINES (1 of 3 - 3-dose series)] Future Scheduled 2022-08-06 Pneumococcal Vaccine: [facility] Test 21:07:15 Pediatrics (0 to 5 Years) and At-Risk Patients (6 to 64 Years) (1 - PCV) [code = Pneumococcal Vaccine: Pediatrics (0 to 5 Years) and At-Risk Patients (6 to 64 Years) (1 - PCV)] Future Scheduled 2022-08-06 COLONOSCOPY SCREENING [facility] Test 21:07:15 [code = COLONOSCOPY SCREENING] Future Scheduled 2022-08-06 SHINGLES VACCINES (1 Met [facility] Test 21:07:15 of 2) [code = SHINGLES VACCINES (1 of 2)] Future Scheduled 2022-08-06 COVID-19 VACCINE (3 - [facility] Test 21:07:15 Booster for Pfizer series) [code = COVID-19 VACCINE (3 - Booster for Pfizer series)] Future Scheduled 2022-08-06 BREAST CANCER [facility] Test 21:07:15 SCREENING [code = BREAST CANCER SCREENING] Future Scheduled 2022-08-06 INFLUENZA VACCINE [facility] Test 21:07:15 [code = INFLUENZA VACCINE] Future Scheduled 2022-08-06 Screening for [facility] Test 21:07:15 malignant neoplasm of cervix (procedure) [code = 871767711] Future Scheduled 2022-06-22 HEPATITIS B VACCINES [facility] Test 14:13:36 (1 of 3 - 3-dose series) [code = HEPATITIS B VACCINES (1 of 3 - 3-dose series)] Future Scheduled 2022-06-22 Pneumococcal Vaccine: [facility] Test 14:13:36 Pediatrics (0 to 5 Years) and At-Risk Patients (6 to 64 Years) (1 - PCV) [code = Pneumococcal Vaccine: Pediatrics (0 to 5 Years) and At-Risk Patients (6 to 64 Years) (1 - PCV)] Future Scheduled 2022-06-22 COLONOSCOPY SCREENING [facility] Test 14:13:36 [code = COLONOSCOPY SCREENING] Future Scheduled 2022-06-22 SHINGLES VACCINES (1 Met [facility] Test 14:13:36 of 2) [code = SHINGLES VACCINES (1 of 2)] Future Scheduled 2022-06-22 COVID-19 VACCINE (3 - [facility] Test 14:13:36 Booster for Pfizer series) [code = COVID-19 VACCINE (3 - Booster for Pfizer series)] Future Scheduled 2022-06-22 INFLUENZA VACCINE [facility] Test 14:13:36 [code = INFLUENZA VACCINE] Future Scheduled 2022-06-22 BREAST CANCER [facility] Test 14:13:36 SCREENING [code = BREAST CANCER SCREENING] Future Scheduled 2022-06-22 Screening for [facility] Test 14:13:36 malignant neoplasm of cervix (procedure) [code = 001302944] Future Scheduled 2022 HEPATITIS B VACCINES [facility] Test 13:45:15 (1 of 3 - 3-dose series) [code = HEPATITIS B VACCINES (1 of 3 - 3-dose series)] Future Scheduled 2022 Pneumococcal Vaccine: [facility] [place] [facility] 13:45:15 Pediatrics (0 to 5 Years) and At-Risk Patients (6 to 64 Years) (1 - PCV) [code = Pneumococcal Vaccine: Pediatrics (0 to 5 Years) and At-Risk Patients (6 to 64 Years) (1 - PCV)] Future Scheduled 2022 COLONOSCOPY SCREENING [facility] Test 13:45:15 [code = COLONOSCOPY SCREENING] Future Scheduled 2022 SHINGLES VACCINES (1 Met [facility] Test 13:45:15 of 2) [code = SHINGLES VACCINES (1 of 2)] Future Scheduled 2022 COVID-19 VACCINE (3 - [facility] Test 13:45:15 Booster for Pfizer series) [code = COVID-19 VACCINE (3 - Booster for Pfizer series)] Future Scheduled 2022 INFLUENZA VACCINE Method [facility] Test 13:45:15 [code = INFLUENZA VACCINE] Future Scheduled 2022 BREAST CANCER [facility] Test 13:45:15 SCREENING [code = BREAST CANCER SCREENING] Future Scheduled 2022 Screening for [facility] Test 13:45:15 malignant neoplasm of cervix (procedure) [code = 497685172] Future Scheduled 2022-04-17 HEPATITIS B VACCINES Met [facility] Test 10:21:02 (1 of 3 - 3-dose series) [code = HEPATITIS B VACCINES (1 of 3 - 3-dose series)] Future Scheduled 2022-04-17 Pneumococcal Vaccine: [facility] Test 10:21:02 Pediatrics (0 to 5 Years) and At-Risk Patients (6 to 64 Years) (1 - PCV) [code = Pneumococcal Vaccine: Pediatrics (0 to 5 Years) and At-Risk Patients (6 to 64 Years) (1 - PCV)] Future Scheduled 2022-04-17 COLONOSCOPY SCREENING [facility] Test 10:21:02 [code = COLONOSCOPY SCREENING] Future Scheduled 2022-04-17 SHINGLES VACCINES (1 Met [facility] Test 10:21:02 of 2) [code = SHINGLES VACCINES (1 of 2)] Future Scheduled 2022-04-17 COVID-19 VACCINE (3 - [facility] Test 10:21:02 Booster for Pfizer series) [code = COVID-19 VACCINE (3 - Booster for Pfizer series)] Future Scheduled 2022-04-17 INFLUENZA VACCINE Method [facility] Test 10:21:02 [code = INFLUENZA VACCINE] Future Scheduled 2022-04-17 BREAST CANCER [facility] Test 10:21:02 SCREENING [code = BREAST CANCER SCREENING] Future Scheduled 2022-04-17 Screening for [facility] Test 10:21:02 malignant neoplasm of cervix (procedure) [code = 447123653] Future Scheduled 2022-04-15 HEPATITIS B VACCINES Met [facility] Test 14:24:02 (1 of 3 - 3-dose series) [code = HEPATITIS B VACCINES (1 of 3 - 3-dose series)] Future Scheduled 2022-04-15 Pneumococcal Vaccine: [facility] Test 14:24:02 Pediatrics (0 to 5 Years) and At-Risk Patients (6 to 64 Years) (1 - PCV) [code = Pneumococcal Vaccine: Pediatrics (0 to 5 Years) and At-Risk Patients (6 to 64 Years) (1 - PCV)] Future Scheduled 2022-04-15 COLONOSCOPY SCREENING [facility] Test 14:24:02 [code = COLONOSCOPY SCREENING] Future Scheduled 2022-04-15 SHINGLES VACCINES (1 Met [facility] Test 14:24:02 of 2) [code = SHINGLES VACCINES (1 of 2)] Future Scheduled 2022-04-15 COVID-19 VACCINE (3 - [facility] Test 14:24:02 Booster for Pfizer series) [code = COVID-19 VACCINE (3 - Booster for Pfizer series)] Future Scheduled 2022-04-15 INFLUENZA VACCINE Method [facility] Test 14:24:02 [code = INFLUENZA VACCINE] Future Scheduled 2022-04-15 BREAST CANCER [facility] Test 14:24:02 SCREENING [code = BREAST CANCER SCREENING] Future Scheduled 2022-04-15 Screening for [facility] Test 14:24:02 malignant neoplasm of cervix (procedure) [code = [id number]] Future Scheduled 2022-04-03 HEPATITIS B VACCINES Met [facility] Test 09:31:00 (1 of 3 - 3-dose series) [code = HEPATITIS B VACCINES (1 of 3 - 3-dose series)] Future Scheduled 2022-04-03 Pneumococcal Vaccine: [facility] Test 09:31:00 Pediatrics (0 to 5 Years) and At-Risk Patients (6 to 64 Years) (1 - PCV) [code = Pneumococcal Vaccine: Pediatrics (0 to 5 Years) and At-Risk Patients (6 to 64 Years) (1 - PCV)] Future Scheduled 2022-04-03 COLONOSCOPY SCREENING [facility] Test 09:31:00 [code = COLONOSCOPY SCREENING] Future Scheduled 2022-04-03 SHINGLES VACCINES (1 Met [facility] Test 09:31:00 of 2) [code = SHINGLES VACCINES (1 of 2)] Future Scheduled 2022-04-03 COVID-19 VACCINE (3 - [facility] Test 09:31:00 Booster for Pfizer series) [code = COVID-19 VACCINE (3 - Booster for Pfizer series)] Future Scheduled 2022-04-03 INFLUENZA VACCINE Method [facility] Test 09:31:00 [code = INFLUENZA VACCINE] Future Scheduled 2022-04-03 BREAST CANCER [facility] Test 09:31:00 SCREENING [code = BREAST CANCER SCREENING] Future Scheduled 2022-04-03 Screening for [facility] Test 09:31:00 malignant neoplasm of cervix (procedure) [code = [id number]] Future Scheduled 2022-03-05 HEPATITIS B VACCINES Met [facility] Test 00:08:56 (1 of 3 - 3-dose series) [code = HEPATITIS B VACCINES (1 of 3 - 3-dose series)] Future Scheduled 2022-03-05 Pneumococcal Vaccine: [facility] Test 00:08:56 Pediatrics (0 to 5 Years) and At-Risk Patients (6 to 64 Years) (1 - PCV) [code = Pneumococcal Vaccine: Pediatrics (0 to 5 Years) and At-Risk Patients (6 to 64 Years) (1 - PCV)] Future Scheduled 2022-03-05 COLONOSCOPY SCREENING [facility] Test 00:08:56 [code = COLONOSCOPY SCREENING] Future Scheduled 2022-03-05 SHINGLES VACCINES (1 Met [facility] Test 00:08:56 of 2) [code = SHINGLES VACCINES (1 of 2)] Future Scheduled 2022-03-05 COVID-19 VACCINE (3 - [facility] Test 00:08:56 Booster for Pfizer series) [code = COVID-19 VACCINE (3 - Booster for Pfizer series)] Future Scheduled 2022-03-05 INFLUENZA VACCINE Method [facility] Test 00:08:56 [code = INFLUENZA VACCINE] Future Scheduled 2022-03-05 BREAST CANCER [facility] Test 00:08:56 SCREENING [code = BREAST CANCER SCREENING] Future Scheduled 2022-03-05 Screening for [facility] Test 00:08:56 malignant neoplasm of cervix (procedure) [code = 685665347] Future Scheduled 2022-03-05 HEPATITIS B VACCINES Met [facility] Test 00:08:56 (1 of 3 - 3-dose series) [code = HEPATITIS B VACCINES (1 of 3 - 3-dose series)] Future Scheduled 2022-03-05 Pneumococcal Vaccine: [facility] Test 00:08:56 Pediatrics (0 to 5 Years) and At-Risk Patients (6 to 64 Years) (1 - PCV) [code = Pneumococcal Vaccine: Pediatrics (0 to 5 Years) and At-Risk Patients (6 to 64 Years) (1 - PCV)] Future Scheduled 2022-03-05 COLONOSCOPY SCREENING [facility] Test 00:08:56 [code = COLONOSCOPY SCREENING] Future Scheduled 2022-03-05 SHINGLES VACCINES (1 Met [facility] Test 00:08:56 of 2) [code = SHINGLES VACCINES (1 of 2)] Future Scheduled 2022-03-05 COVID-19 VACCINE (3 - [facility] Test 00:08:56 Booster for Pfizer series) [code = COVID-19 VACCINE (3 - Booster for Pfizer series)] Future Scheduled 2022-03-05 INFLUENZA VACCINE Method [facility] Test 00:08:56 [code = INFLUENZA VACCINE] Future Scheduled 2022-03-05 BREAST CANCER [facility] Test 00:08:56 SCREENING [code = BREAST CANCER SCREENING] Future Scheduled 2022-03-05 Screening for [facility] Test 00:08:56 malignant neoplasm of cervix (procedure) [code = 569251408] Future Scheduled 2022-02-22 HEPATITIS B VACCINES Met [facility] Test 22:17:15 (1 of 3 - 3-dose series) [code = HEPATITIS B VACCINES (1 of 3 - 3-dose series)] Future Scheduled 2022-02-22 Pneumococcal Vaccine: [facility] Test 22:17:15 Pediatrics (0 to 5 Years) and At-Risk Patients (6 to 64 Years) (1 - PCV) [code = Pneumococcal Vaccine: Pediatrics (0 to 5 Years) and At-Risk Patients (6 to 64 Years) (1 - PCV)] Future Scheduled 2022-02-22 COLONOSCOPY SCREENING [facility] Test 22:17:15 [code = COLONOSCOPY SCREENING] Future Scheduled 2022-02-22 SHINGLES VACCINES (1 Met [facility] Test 22:17:15 of 2) [code = SHINGLES VACCINES (1 of 2)] Future Scheduled 2022-02-22 COVID-19 VACCINE (3 - [facility] Test 22:17:15 Booster for Pfizer series) [code = COVID-19 VACCINE (3 - Booster for Pfizer series)] Future Scheduled 2022-02-22 INFLUENZA VACCINE Method [facility] Test 22:17:15 [code = INFLUENZA VACCINE] Future Scheduled 2022-02-22 BREAST CANCER [facility] Test 22:17:15 SCREENING [code = BREAST CANCER SCREENING] Future Scheduled 2022-02-22 Screening for [facility] Test 22:17:15 malignant neoplasm of cervix (procedure) [code = 249527352] Future Scheduled 2022-01-10 IMM Influenza Seasonal H [...] malignant neoplasm of colon (procedure) [code = 153276598] Future Scheduled 2019 [facility] 00:[facility]:00 malignant neoplasm of colon (procedure) [code = 598148037] Future Scheduled 2019 Screening for [facility] 00:00:00 malignant neoplasm of colon (procedure) [code = 876545783] Future Scheduled 2019 Screening for [facility] 00:00:00 malignant neoplasm of colon (procedure) [code = 854806140] Future Scheduled 2019 Screening for [facility] 00:00:00 malignant neoplasm of colon (procedure) [code = 296159054] Future Scheduled 2019 Screening for [facility] 00:00:00 malignant neoplasm of colon (procedure) [code = 081408192] Future Scheduled 2019 Screening for [facility] 00:00:00 malignant neoplasm of colon (procedure) [code = 786328268] Future Scheduled 2019 Screening for [facility] 00:00:00 malignant neoplasm of colon (procedure) [code = 568923788] Future Scheduled 2019 Screening for [facility] 00:00:00 malignant neoplasm of colon (procedure) [code = 110017962] Future Scheduled 2019 Screening for [facility] 00:00:00 malignant neoplasm of colon (procedure) [code = 401287851] Future Scheduled 2019 [facility] 00:00:00 malignant neoplasm of colon (procedure) [code = 118582366] Future Scheduled 1975 Imm Pneumococcal 0-64 Maria [...] Type Clinicians Facility Department ID 2022-04-23 Outpatient [facility] [id number] [place] 15:11:46 [id number] Health 2022-09-14 2022-09-14 Outpatient [facility] [id number] [place]im 14:26:13 14:26:13 16860 F Dixon 2022-09-10 2022-09-10 Orders Fabby, 1.2.840.1 [id number] 5593 Methodi 00:00:00 00:00:00 Only [place] [address]698.1.[address] Kelley 3.430.2.7 Hospit a .3.786460 l .8 2022-09-10 2022-09-10 Telephone Pena, 1.2.840.1 [id number] 2100 [id number] Methodi 00:00:00 00:00:[address] 3.430.2.7 Hospit a .3.458619 l .8 2022-09-10 2022-09-10 Orders Davidkwanchiqui, 1.2.840.1 [id number] 7105 Methodi 00:00:00 00:00:00 Only [place] 51104.1.[address] Kelley 3.430.2.7 Hospit a .3.609178 l .8 2022-09-10 2022-09-10 Telephone Jean, 1.2.840.1 [id number] 2099 [id number] Methodi 00:00:00 00:00:[address] 3.430.2.7 Hospit a .3.708854 l .8 2022-05-15 2022-05-15 Outpatient KELLI ALDANA [id number] 22 Kelli 00:00:00 00:00:00 SHINEAl Wallacecristiane ren 2022-02-19 2022-02-19 Emergency Vasquez, 1.2.840.1 [id number] 2099 [id number] Methodi 18:09:00 20:16:[address] Bennett 3.430.2.7 Hosp shai .3.555161 l .8 2022-02-19 2022-02-19 Emergency Vasquez, 1.2.840.1 [id number] 2099 [id number] Methodi 18:09:00 20:16:[address] Bennett 3.430.2.7 Hosp shai .3.526944 l .8 2022-02-12 2022-02-12 Orders Lopez, 1.2.840.1 [id number] 47355 Methodi 00:00:00 00:00:00 Only Maureen 42581.1.[address] 3.430.2.7 Hospit a .3.558676 l .8 2022-02-12 2022-02-12 Orders Lopez, 1.2.840.1 [id number] 07835 Methodi 00:00:00 00:00:00 Only Maureen 32278.1.[address] 3.430.2.7 Hospit a .3.377286 l .8 2022-02-11 2022-02-11 Orders Lopez, 1.2.840.1 [id number] 62936 58331 Methodi 00:00:00 00:00:00 Only Maureen 53549.1.[address] 3.430.2.7 Hospit a .3.000524 l .8 2022-02-11 2022-02-11 Telephone Prasanth, 1.2.840.1 [id number] 2099 [id number] Methodi 00:00:00 00:00:[address] Franco [address]1.[address] 3.430.2.7 Hospit a .3.781827 l .8 2022-02-11 2022-02-11 Jaclyn Lopez, 1.2.840.1 [id number] 37705 81303 Methodi 00:00:00 00:00:00 Only Maureen 47799.1.[address] 3.430.2.7 Hospit a .3.380250 l .8 2022-02-11 2022-02-11 Telephone Prasanth, 1.2.840.1 [id number] 2099 [id number] Methodi 00:00:00 00:00:00 Eddie Franco 72483.1.[address] 3.430.2.7 Hospit a .3.052562 l .8 2022-02-09 2022-02-09 Outpatient COH COH PDPFCCG ETQ COH 00:00:00 00:00:00 [id number] 2022-02-09 2022-02-09 Lamberto Farris, 1.2.840.1 [id number] 2099 [id number] Methodi 00:00:00 00:00:00 Eddie Franco 38541.1.[address] 3.430.2.7 Hospit a .3.767489 l .8 2022-02-09 2022-02-09 Lamberto Farris, 1.2.840.1 [id number] 2099 642721 Methodi 00:00:00 00:00:00 Eddie Franco [address]128.1.[address] 3.430.2.7 Hospit a .3.051660 l .8 2022-02-05 2022-02-05 Mak Farris, 1.2.840.1 [id number] 7384 Methodi 10:50:00 10:55:00 Eddie Franco 70215.1.[address] 3.430.2.7 Hospit a .3.276213 l .8 2022-02-052022-02-05 Lab Prasanth, 1.2.840.1 [id number] 5877 Methodi 10:50:00 10:55:00 Eddie Franco 66743.1.[address] 3.430.2.7 Hospit a .3.760783 l .8 2022-02-05 2022-02-05 Office Prasanth, 1.2.840.1 [id number] [id number] 5085 Methodi 09:40:00 10:31:06 Visit Eddie Franco 78051.1.[address] 3.430.2.7 Hospit a .3.565369 l .8 2022-02-05 2022-02-05 Office Prasanth, 1.2.840.1 [id number] [id number] 4634 Methodi 09:40:00 10:31:06 Visit Eddie Franco 77761.1.[address] 3.430.2.7 Hospit a .3.435936 l .8 2022-02-05 2022-02-05 Refill Istre, 1.2.840.1 [id number] 3306 Methodi 00:00:00 00:00:[address] [place] 3.430.2.7 Hospi ta .3.957551 l .8 2022-02-05 2022-02-05 Travel 1.2.840.1 1.2.870.059 2723 018663 Methodi 00:00:00 00:00:[address] 3.430.2.7 0.2.7.3.698 Ho spita .3.937314 084.8 l .8 2022-02-05 2022-02-05 Refill Istre, 1.2.840.1 [id number] 097836 2359 Methodi 00:00:00 00:00:[address] Doe 3.430.2.7 Hospi ta .3.590482 l .8 2022-02-05 2022-02-05 Travel 1.2.840.1 1.2.451.348 4366 505212 Methodi 00:00:00 00:00:[address] 3.430.2.7 0.2.7.3.698 Ho spita .3.307215 084.8 l .8 2022-02-03 2022-02-03 Telephone Prasanth, 1.2.840.1 [id number] 2099 202823 Methodi 00:00:00 00:00:00 Eddie Franco 04991.1.[address] 3.430.2.7 Hospit a .3.159014 l .8 2022-02-03 2022-02-03 Telephone Prasanth, 1.2.840.1 [id number] Methodi 00:00:00 00:00:00 Eddie Franco 69721.1.[address] 3.430.2.7 Hospit a .3.157520 l .8 2022-01-01 2022-01-01 Telephone Alessio, 1.2.840.1 [id number] 2099 [id number] Methodi 00:00:00 00:00:[address] 3.430.2.7 Hospit a .3.531841 l .8 2022-01-01 2022-01-01 Telephone Alessio, 1.2.840.1 [id number] 2100 522421 Methodi 00:00:00 00:00:[address] 3.430.2.7 Hospit a .3.564344 l .8 2021-12-26 2021-12-26 Surgery Small, 1.2.840.1 [id number] 635196 2949 Methodi 11:00:00 11:45:[address] Hasan 3.430.2.7 Hospit a .3.052779 l .8 2021-12-26 2021-12-26 Surgery Small, 1.2.840.1 [id number] [id number] 6265 Methodi 11:00:00 11:45:[address] Hasan 3.430.2.7 Hospit a .3.240027 l .8 2021-12-26 2021-12-26 [facility], 1.2.840.1 [id number] 20980 72244 Methodi 10:21:00 11:28:00 Encounter Proctor 16450.1.[address] Hasan 3.430.2.7 Hospit a .3.703296 l .8 2021-12-26 2021-12-26 [facility], 1.2.840.1 [id number] 78021 34067 Methodi 10:21:00 11:28:00 Encounter Proctor 21553.1.[address] Hasan 3.430.2.7 Hospit a .3.836646 l .8 2021-12-26 2021-12-26 Anesthesia PennieHans acharya 1.2.840.1 [id number] Methodi 10:44:00 11:06:00 Event Edward 59435.1.[address] 3.430.2.7 Hospit a .3.186360 l .8 2021-12-26 2021-12-26 Anesthesia PennieHans acharya 1.2.840.1 [id number] Methodi 10:44:00 11:06:00 Event Edward 12786.1.[address] 3.430.2.7 Hospit a .3.606412 l .8 2021-12-26 2021-12-26 Travel 1.2.840.1 1.2.479.947 5212 314655 Methodi 00:00:00 00:00:[address] 3.430.2.7 0.2.7.3.698 Ho spita .3.581764 084.8 l .8 2021-12-26 2021-12-26 Travel 1.2.840.1 1.2.195.616 7580 805791 Methodi 00:00:00 00:00:[address] 3.430.2.7 0.2.7.3.698 Ho spita .3.980526 084.8 l .8 2021-12-24 2021-12-24 Lab Staci, 1.2.840.1 [id number] 4840 Methodi 08:00:00 08:15:[address] Hasan 3.430.2.7 Hospit a .3.791738 l .8 2021-12-24 2021-12-24 Lab Staci, 1.2.840.1 [id number] 4820 Methodi 08:00:00 08:15:[address] Hasan 3.430.2.7 Hospit a .3.982666 l .8 2021-12-24 2021-12-24 Orders Tran, 1.2.840.1 [id number] 2405 Methodi 00:00:00 00:00:00 Only Kortney 01566.1.[address] 3.430.2.7 Hospit a .3.737991 l .8 2021-12-24 2021-12-24 Orders Tran, 1.2.840.1 [id number] 180047 0603 Methodi 00:00:00 00:00:00 Only Kortney 20148.1.[address] 3.430.2.7 Hospit a .3.577105 l .8 2021-12-18 2021-12-18 Office Prasanth, 1.2.840.1 [id number] 4318 Methodi 11:00:00 13:02:01 Visit Eddie Franco 98542.1.[address] 3.430.2.7 Hospit a .3.352636 l .8 2021-12-18 2021-12-18 Office Prasanth, 1.2.840.1 [id number] 894134 8718 Methodi 11:00:00 13:02:01 Visit Eddie Franco 57359.1.[address] 3.430.2.7 Hospit a .3.704596 l .8 2021-12-18 2021-12-18 Travel 1.2.840.1 1.2.416.328 2448 012039 Methodi 00:00:00 00:00:[address] 3.430.2.7 0.2.7.3.698 Ho spita .3.721434 084.8 l .8 2021-12-18 2021-12-18 Travel 1.2.840.1 1.2.846.288 3017 475040 Methodi 00:00:00 00:00:[address] 3.430.2.7 0.2.7.3.698 Ho spita .3.291771 084.8 l .8 2021-12-16 2021-12-16 Office Doug Estevez [facility] Encounter/ Legacy 00:00:00 00:00:00 Visit Joey MckenzievoBijan [id number] [facility] [id number] [facility] 2021-12-09 2021-12-09 Refill Leggett, 1.2.840.1 [id number] 2099 [id number] Methodi 00:00:00 00:00:[address] 3.430.2.7 Hospit a .3.795534 l .8 2021-12-09 2021-12-09 Refill Leggett, 1.2.840.1 [id number] 2099 [id number] Methodi 00:00:00 00:00:[address] 3.430.2.7 Hospit a .3.240817 l .8 2021-11-28 2021-11-28 Office Carly, 1.2.840.1 [id number] 228 [id number] Methodi 10:15:00 10:52:48 Visit Pimprapa 03735.1.[address] 3.430.2.7 Hospit a .3.320520 l .8 2021-11-28 2021-11-28 Office Carly, 1.2.840.1 [id number] 874 [id number] Methodi 10:15:00 10:52:48 Visit Pimprapa 70147.1.[address] 3.430.2.7 Hospit a .3.456363 l .8 2021-11-28 2021-11-28 Travel 1.2.840.1 1.2.407.182 5909 324373 Methodi 00:00:00 00:00:[address] 3.430.2.7 0.2.7.3.698 Ho spita .3.488561 084.8 l .8 2021-11-28 2021-11-28 Travel 1.2.840.1 1.2.908.470 9902 670984 Methodi 00:00:00 00:00:[address] 3.430.2.7 0.2.7.3.698 Ho spita .3.919129 084.8 l .8 2021-11-17 2021-11-17 Office [facility], 1.2.840.1 [id number] [id number] 6937 Methodi 09:00:00 09:30:00 Visit [place] 25641.1.[address] Kelley 3.430.2.7 Hospit a .3.490760 l .8 2021-11-17 2021-11-17 Office [facility], 1.2.840.1 [id number] 7923 Methodi 09:00:00 09:30:00 Visit [place] 04161.1.[address] [place] 3.430.2.7 Hospit a .3.157305 l .8 2021-11-17 2021-11-17 Travel 1.2.840.1 1.2.429.624 8259 224505 Methodi 00:00:00 00:00:[address] 3.430.2.7 0.2.7.3.698 Ho spita .3.088907 084.8 l .8 2021-11-17 2021-11-17 Travel 1.2.840.1 1.2.149.549 2833 759867 Methodi 00:00:00 00:00:[address] 3.430.2.7 0.2.7.3.698 Ho spita .3.433782 084.8 l .8 2021-11-14 2021-11-14 Orders Istre, 1.2.840.1 [id number] 4958 Methodi 00:00:00 00:00:00 Only Shell 39153.1.[address] [place] 3.430.2.7 Hospi ta .3.446736 l .8 2021-11-14 2021-11-14 Orders Istre, 1.2.840.1 [id number] 9419 Methodi 00:00:00 00:00:00 Only Shell 33082.1.[address] [place] 3.430.2.7 Hospi ta .3.359626 l .8 2021-11-11 2021-11-11 Telemedici Istre, 1.2.840.1 [id number] 014 [id number] Methodi 10:00:00 10:40:34 ne Shell 50942.1.[address] [place] 3.430.2.7 Hospi ta .3.791837 l .8 2021-11-11 2021-11-11 Telemedici Istre, 1.2.840.1 [id number] 516 [id number] Methodi 10:00:00 10:40:34 ne Shell 40683.1.[address] [place] 3.430.2.7 Hospi ta .3.525652 l .8 2021-11-07 2021-11-07 Emergency Noel, 1.2.840.1 [id number] 2100 645925 Methodi 14:04:00 15:46:[address] Kirsten 3.430.2.7 Hospit a .3.082751 l .8 2021-11-07 2021-11-07 Emergency Noel, 1.2.840.1 [id number] 2099 074860 Methodi 14:04:00 15:46:[address] Kirsten 3.430.2.7 Hospit a .3.716488 l .8 2021-11-07 2021-11-07 Travel 1.2.840.1 1.2.773.421 0382 612424 Methodi 00:00:00 00:00:[address] 3.430.2.7 0.2.7.3.698 Ho spita .3.718380 084.8 l .8 2021-11-07 2021-11-07 Travel 1.2.840.1 1.2.698.178 6878 014717 Methodi 00:00:00 00:00:[address] 3.430.2.7 0.2.7.3.698 Ho spita .3.334794 084.8 l .8 2021-11-03 2021-11-03 Lab Staci, 1.2.840.1 [id number] 157964 8474 Methodi 08:25:00 08:30:[address] Hasan 3.430.2.7 Hospit a .3.740838 l .8 2021-11-03 2021-11-03 Lab Staci, 1.2.840.1 [id number] 481481 7252 Methodi 08:25:00 08:30:[address] Hasan 3.430.2.7 Hospit a .3.176703 l .8 2021-11-03 2021-11-03 Telephone Alessio, 1.2.840.1 [id number] 2100 449712 Methodi 00:00:00 00:00:[address] 3.430.2.7 Hospit a .3.482865 l .8 2021-11-03 2021-11-03 Travel 1.2.840.1 1.2.566.907 7048 743993 Methodi 00:00:00 00:00:[address] 3.430.2.7 0.2.7.3.698 Ho spita .3.422027 084.8 l .8 2021-11-03 2021-11-03 Outpatient SMALL, [facility] [id number] 623 [place] 00:00:00 00:00:00 PROCTOR [address] 2021-11-03 2021-11-03 Telephone Alessio, 1.2.840.1 [id number] 2099 342531 Methodi 00:00:00 00:00:[address] 3.430.2.7 Hospit a .3.030745 l .8 2021-11-03 2021-11-03 Travel 1.2.840.1 1.2.838.793 6703 945601 Methodi 00:00:00 00:00:[address] 3.430.2.7 0.2.7.3.698 Ho spita .3.629714 084.8 l .8 2021-10-29 2021-10-29 Documentat Judd, 1.2.840.1 [id number] 2 [id number] Methodi 00:00:00 00:00:00 ion Amanda 78808.1.[address] 3.430.2.7 Hospit a .3.253143 l .8 2021-10-29 2021-10-29 Prep for Judd, 1.2.840.1 157753438 759 1450992 Methodi 00:00:00 00:00:00 Surgery Amanda 12201.1.[address] 3.430.2.7 Hospit a .3.952021 l .8 2021-10-29 2021-10-29 Telephone Judd, 1.2.840.1 [id number] 21 [id number] Methodi 00:00:00 00:00:[address] 3.430.2.7 Hospit a .3.030003 l .8 2021-10-29 2021-10-29 Travel 1.2.840.1 1.2.175.775 8329 512834 Methodi 00:00:00 00:00:[address] 3.430.2.7 0.2.7.3.698 Ho spita .3.264069 084.8 l .8 2021-10-29 2021-10-29 Documentat Binta, 1.2.840.1 [id number] 2 [id number] Methodi 00:00:00 00:00:00 ion Amanda 19142.1.[address] 3.430.2.7 Hospit a .3.044108 l .8 2021-10-29 2021-10-29 Prep for Binta, 1.2.840.1 [id number] 278 6559443 Methodi 00:00:00 00:00:00 Surgery Amanda 12051.1.[address] 3.430.2.7 Hospit a .3.420874 l .8 2021-10-29 2021-10-29 Telephone Binta, 1.2.840.1 [id number] 21 [id number] Methodi 00:00:00 00:00:[address] 3.430.2.7 Hospit a .3.082179 l .8 2021-10-29 2021-10-29 Travel 1.2.840.1 1.2.386.373 2142 890504 Methodi 00:00:00 00:00:[address] 3.430.2.7 0.2.7.3.698 Ho spita .3.746703 084.8 l .8 2021-10-22 2021-10-22 Office Kem, 1.2.840.1 [id number] 257 [id number] Methodi 09:40:00 10:17:00 Visit Rebecca Nguyen 69155.1.[address] 3.430.2.7 Hospit a .3.936999 l .8 2021-10-22 2021-10-22 Office Kem, 1.2.840.1 695103004 419 3466107 Methodi 09:40:00 10:17:00 Visit Rebecca Nguyen 63024.1.[address] 3.430.2.7 Hospit a .3.900189 l .8 2021-10-22 2021-10-22 Travel 1.2.840.1 1.2.598.213 7672 588546 Methodi 00:00:00 00:00:[address] 3.430.2.7 0.2.7.3.698 Ho spita .3.804395 084.8 l .8 2021-10-22 2021-10-22 Travel 1.2.840.1 1.2.588.695 3641 115914 Methodi 00:00:00 00:00:[address] 3.430.2.7 0.2.7.3.698 Ho spita .3.409233 084.8 l .8 2021-10-14 2021-10-15 Emergency Adry, 1.2.840.1 [id number] 975 [id number] Methodi 21:57:00 00:06:00 José H 49595.1.[address] 3.430.2.7 Hospit a .3.639057 l .8 2021-10-12 2021-10-12 Emergency Hudson, 1.2.840.1 [id number] 2100 [id number] Methodi 10:13:00 14:37:00 Tr[address] Swann 39954.1.[address] 3.430.2.7 Hospit a .3.490854 l .8 2021-10-09 2021-10-09 Telephone Juan Carlos Rivers 1.2.840.1 [id number] Methodi 00:00:00 00:00:[address] 3.430.2.7 Hospit a .3.563762 l .8 2021-10-09 2021-10-09 Telephone Juan Carlos Rivers 1.2.840.1 [id number] Methodi 00:00:00 00:00:[address] 3.430.2.7 Hospit a .3.046554 l .8 2021-10-09 2021-10-09 Orders Iscorwin, 1.2.840.1 [id number] 066812 0939 Methodi 00:00:00 00:00:00 Only Shell 58723.1.[address] [place] 3.430.2.7 Hospi ta .3.147438 l .8 2021-10-02 2021-10-02 Telephone Marcrussel, 1.2.840.1 [id number] 208 [id number] Methodi 00:00:00 00:00:[address] 3.430.2.7 Hospit a .3.240002 l .8 2021-09-30 2021-09-30 Surgery Kem, 1.2.840.1 [id number] 819 1505898 Methodi 07:15:00 09:02:00 Rebecca Nguyen 65769.1.[address] 3.430.2.7 Hospit a .3.438888 l .8 2021-09-30 2021-09-30 [facility] Kem 1.2.840.1 [id number] 21 [id number] Methodi 06:02:00 08:50:00 Encounter Rebecca Nguyen 95629.1.[address] 3.430.2.7 Hospit a .3.214776 l .8 2021-09-30 2021-09-30 Anesthesia Tomas Mattson 1.2.840.1 1045 00760 [id number] Methodi 07:05:00 08:04:00 Event Sunita Marie 47741.1.[address] 3.430.2.7 Hospit a .3.397106 l .8 2021-09-26 2021-09-26 [facility] 2100 [id number] [place] 00:00:00 00:00:00 REBECCA Baumann Method i [facility] 2021-09-19 2021-09-19 Travel 1.2.840.1 1.2.265.648 3238 394441 Methodi 00:00:00 00:00:[address] 3.430.2.7 0.2.7.3.698 Ho spita .3.792872 084.8 l .8 2021-09-19 2021-09-19 Orders Marrero, 1.2.840.1 [id number] 2100 948828 Methodi 00:00:00 00:00:00 Only Sharon 93806.1.[address] 3.430.2.7 Hospit a .3.669068 l .8 2021-09-19 2021-09-19 Orders Tavares, 1.2.840.1 983804842 657053 8663 Methodi 00:00:00 00:00:00 Only Peggy 13097.1.[address] 3.430.2.7 Hospit a .3.193814 l .8 2021-09-18 2021-09-18 Orders Propes, 1.2.840.1 245512049 664347 3148 Methodi 00:00:00 00:00:00 Only Pina 70471.1.[address] 3.430.2.7 Hospit a .3.841373 l .8 2021-09-14 2021-09-14 Orders Tavares, 1.2.840.1 [id number] 291278 7107 Methodi 00:00:00 00:00:00 Only Peggy 97078.1.[address] 3.430.2.7 Hospit a .3.621817 l .8 2021-09-11 2021-09-11 Office Tavares, 1.2.840.1 [id number] 945305 0462 Methodi 15:50:00 16:55:49 Visit Peggy 80385.1.[address] 3.430.2.7 Hospit a .3.388699 l .8 2021-09-11 2021-09-11 Travel 1.2.840.1 1.2.815.615 3326 022228 Methodi 00:00:00 00:00:[address] 3.430.2.7 0.2.7.3.698 Ho spita .3.278601 084.8 l .8 2021-09-10 2021-09-10 Office Kem, 1.2.840.1 [id number] 591 [id number] Methodi 10:40:00 11:03:05 Visit Rebecca Altagracia 79809.1.[address] 3.430.2.7 Hospit a .3.521808 l .8 2021-09-10 2021-09-10 Orders Edmundo, 1.2.840.1 [id number] 2099 690101 Methodi 00:00:00 00:00:00 Only Jami 40629.1.[address] 3.430.2.7 Hospit a .3.329688 l .8 2021-09-10 2021-09-10 Outpatient KEM, [facility] 2100 [id number] [place] 00:00:00 00:00:00 REBECCA Tran Method [facility] 2021-08-31 2021-08-31 Refill Iscorwin, 1.2.840.1 [id number] 690581 3550 Methodi 00:00:00 00:00:[address] [place] 3.430.2.7 Hospi ta .3.968554 l .8 2021-08-31 2021-08-31 Refill Prasanth, 1.2.840.1 105613802 183372 5709 Methodi 00:00:00 00:00:00 Eddie Franco 87606.1.[address] 3.430.2.7 Hospit a .3.756024 l .8 2021-08-29 2021-08-29 Telephone Denisse, 1.2.840.1 [id number] 2100 947020 Methodi 00:00:00 00:00:00 [place] Ray 47196.1.[address] 3.430.2.7 Hospit a .3.142838 l .8 2021-08-29 2021-08-29 Orders Iscorwin, 1.2.840.1 998277698 241063 4297 Methodi 00:00:00 00:00:00 Only Shell 28541.1.[address] [place] 3.430.2.7 Hospi ta .3.956624 l .8 2021-08-28 2021-08-28 Travel 1.2.840.1 1.2.860.132 0232 548991 Methodi 00:00:00 00:00:[address] 3.430.2.7 0.2.7.3.698 Ho spita .3.998975 084.8 l .8 2021-08-26 2021-08-26 Emergency Mazin, 1.2.840.1 [id number] 2099 833210 Methodi 16:36:00 20:08:[address] Adrienne 3.430.2.7 Hospit a .3.564708 l .8 2021-08-26 2021-08-26 Orders Colmenter, 1.2.840.1 [id number] 743 2962204 Methodi 00:00:00 00:00:00 Only Linda 43094.1.[address] 3.430.2.7 Hospit a .3.132020 l .8 2021-08-21 2021-08-21 Orders Colmenter, 1.2.840.1 463431176 512 8592280 Methodi 00:00:00 00:00:00 Only Linda 07392.1.[address] 3.430.2.7 Hospit a .3.754106 l .8 2021-08-14 2021-08-14 Office Colmenter, 1.2.840.1 649036800 148 5671560 Methodi 11:00:00 13:05:34 Visit Linda 69613.1.[address] 3.430.2.7 Hospit a .3.297214 l .8 2021-08-12 2021-08-12 Office Prasanth, 1.2.840.1 391385665 250568 9715 Methodi 10:00:00 11:08:57 Visit Eddie AldridgeChantal 37024.1.[address] 3.430.2.7 Hospit a .3.038335 l .8 2021-08-12 2021-08-12 Travel 1.2.840.1 1.2.606.914 7554 022134 Methodi 00:00:00 00:00:[address] 3.430.2.7 0.2.7.3.698 Ho spita .3.754557 084.8 l .8 2021-08-08 2021-08-08 Emergency EM Lynda, HCAKW SHIRLENE [id number] [facility] 12:48:00 19:41:[address] [facility] 2021-08-08 2021-08-08 Emergency EM Lynda, HCAKW HCAKW [id number] [facility] 12:48:00 19:41:[id number] [facility] 2021-08-08 2021-08-08 Outpatient Lynda, SAHRACL LABO [id number] [facility] 19:09:00 19:09:00 Di 00 [facility] 2021-08-08 2021-08-08 Transcribe Alicia, 1.2.840.1 [id number] 059 [id number] Methodi 00:00:00 00:00:00 Orders Shell 69237.1.[address] [place] 3.430.2.7 Hospi ta .3.520142 l .8 2021-08-06 2021-08-06 Emergency Myles Martin 1.2.840.1 [id number] Methodi 14:54:00 18:50:[address] 3.430.2.7 Hospit a .3.277206 l .8 2021-08-06 2021-08-06 Travel 1.2.840.1 1.2.916.144 2966 428457 Methodi 00:00:00 00:00:[address] 3.430.2.7 0.2.7.3.698 Ho spita .3.777409 084.8 l .8 2021-08-04 2021-08-04 Office Iscorwin, 1.2.840.1 [id number] 655008 3458 Methodi 14:20:00 15:33:19 Visit Shell 30388.1.[address] [place] 3.430.2.7 Hospi ta .3.893160 l .8 2021-08-04 2021-08-04 Travel 1.2.840.1 1.2.947.550 8006 056067 Methodi 00:00:00 00:00:[address] 3.430.2.7 0.2.7.3.698 Ho spita .3.149466 084.8 l .8 2021-07-31 2021-07-31 Emergency Nelson Villagran 1.2.840.1 [id number] Methodi 21:39:00 23:28:[address] 3.430.2.7 Hospit a .3.514879 l .8 2021-07-31 2021-07-31 Travel 1.2.840.1 1.2.459.914 0195 464317 Methodi 00:00:00 00:00:[address] 3.430.2.7 0.2.7.3.698 Ho spita .3.247629 084.8 l .8 2021-07-30 2021-07-30 Emergency Myles Martin 1.2.840.1 205732189 [id number] Methodi 13:34:00 17:16:[address] 3.430.2.7 Hospit a .3.996738 l .8 2021-07-30 2021-07-30 Telephone Istre, 1.2.840.1 [id number] 2099 756275 Methodi 00:00:00 00:00:[address] Doe 3.430.2.7 Hospi ta .3.779711 l .8 2021-07-28 2021-07-28 Outpatient [facility] [id number] 879 [place] 00:00:00 00:00:00 PEGGY Smith [facility] 2021-07-24 2021-07-24 Orders Jessica, 1.2.840.1 [id number] 84628 89741 Methodi 00:00:00 00:00:00 Only Maureen 31996.1.[address] 3.430.2.7 Hospit a .3.902823 l .8 2021-07-23 2021-07-23 Orders Istre, 1.2.840.1 555942130 575224 2015 Methodi 00:00:00 00:00:00 Only Shell 31590.1.[address] Doe 3.430.2.7 Hospi ta .3.626147 l .8 2021-07-21 2021-07-21 Orders Istre, 1.2.840.1 150183293 606767 3222 Methodi 00:00:00 00:00:00 Only Shell 16684.1.[address] Doe 3.430.2.7 Hospi ta .3.378088 l .8 2021-07-15 2021-07-15 Telephone Leggett, 1.2.840.1 [id number] 21 [id number] Methodi 00:00:00 00:00:[address] 3.430.2.7 Hospit a .3.698007 l .8 2021-07-15 2021-07-15 Travel 1.2.840.1 1.2.378.758 5786 088954 Methodi 00:00:00 00:00:[address] 3.430.2.7 0.2.7.3.698 Ho spita .3.889933 084.8 l .8 2021-07-10 2021-07-10 Treatment Shell Vargasd 1.2.840.1 922360583 1285232997 Methodi 09:00:00 10:00:00 Peggy Esparza 05918.1.[address] AlcalaSmooth 3.430.2.7 H ospita .3.993600 l .8 2021-07-10 2021-07-10 Plan of 1.2.840.1 476454478 405362 4041 Methodi 00:00:00 00:00:[address] Documentat 3.430.2.7 Hos margie ion .3.670906 l .8 2021-07-09 2021-07-09 Travel 1.2.840.1 1.2.100.211 4014 779882 Methodi 00:00:00 00:00:[address] 3.430.2.7 0.2.7.3.698 Ho spita .3.882467 084.8 l .8 2021-07-09 2021-07-09 Orders Istre, 1.2.840.1 087001303 364982 4499 Methodi 00:00:00 00:00:00 Only Shell 78769.1.[address] Doe 3.430.2.7 Hospi ta .3.193185 l .8 2021-07-03 2021-07-03 Travel 1.2.840.1 1.2.442.869 4057 692920 Methodi 00:00:00 00:00:[address] 3.430.2.7 0.2.7.3.698 Ho spita .3.079766 084.8 l .8 2021-06-30 2021-06-30 Emergency Tyshawn, Nelson 1.2.840.1 [id number] [id number] Methodi 14:43:00 20:06:[address] 3.430.2.7 Hospit a .3.649162 l .8 2021-06-19 2021-06-19 Orders Madera, 1.2.840.1 [id number] 839096 0497 Methodi 00:00:00 00:00:00 Only Susanne 27793.1.[address] 3.430.2.7 Hospit a .3.937705 l .8 2021-06-18 2021-06-18 Orders Tran, 1.2.840.1 753373936 359162 5477 Methodi 00:00:00 00:00:00 Only Kortney 83720.1.[address] 3.430.2.7 Hospit a .3.428973 l .8 2021-06-18 2021-06-18 Telephone Jessica, 1.2.840.1 [id number] 104 2327625 Methodi 00:00:00 00:00:[address] 3.430.2.7 Hospit a .3.081960 l .8 2021-06-16 2021-06-16 Office Prasanth, 1.2.840.1 [id number] 690542 8195 Methodi 11:40:00 13:03:55 Visit Eddie Franco 69498.1.[address] 3.430.2.7 Hospit a .3.597023 l .8 2021-06-16 2021-06-16 Travel 1.2.840.1 1.2.531.171 7628 675165 Methodi 00:00:00 00:00:[address] 3.430.2.7 0.2.7.3.698 Ho spita .3.534306 084.8 l .8 2021-06-03 2021-06-03 Refill Santy, 1.2.840.1 [id number] 697379 9761 Methodi 00:00:00 00:00:[address] 3.430.2.7 Hospit a .3.803173 l .8 2021-06-03 2021-06-03 Telephone Abreu, 1.2.840.1 [id number] 2100 448524 Methodi 00:00:00 00:00:[address] 3.430.2.7 Hospit a .3.762333 l .8 2021-06-02 2021-06-02 Emergency Gunnar, 1.2.840.1 [id number] 2 [id number] Methodi 10:56:00 13:23:00 Mario Crook 99514.1.1 606 [address] t 3.430.2.7 Hospit a .3.156775 l .8 2021-06-02 2021-06-02 Orders Alicia, 1.2.840.1 145849631 598599 6047 Methodi 00:00:00 00:00:00 Only Shell 24136.1.[address] Doe 3.430.2.7 Hospi ta .3.895129 l .8 2021-05-30 2021-05-30 Treatment Shell Vargas 1.2.840.1 [id number] 2555208256 Methodi 10:00:00 11:00:00 AlcalaSmooth [address] 3.430.2.7 Hospit a .3.901231 l .8 2021-05-28 2021-05-28 Orders Alicia, 1.2.840.1 [id number] 363357 8531 Methodi 00:00:00 00:00:00 Only Shell 99671.1.[address] Doe 3.430.2.7 Hospi ta .3.416951 l .8 2021-05-27 2021-05-27 Travel 1.2.840.1 1.2.778.871 5115 675418 Methodi 00:00:00 00:00:[address] 3.430.2.7 0.2.7.3.698 Ho spita .3.161200 084.8 l .8 2021-05-19 2021-05-19 Evaluation Shell Vargas 1.2.840.1 048152562 3056984532 Methodi 11:00:00 12:00:00 Peggy Esparza 66214.1.[address] Smooth Alcala 3.430.2.7 H ospita .3.789774 l .8 2021-05-19 2021-05-19 Plan of 1.2.840.1 539999337 326509 5587 Methodi 00:00:00 00:00:[address] Documentat 3.430.2.7 Hos margie ion .3.358163 l .8 2021-05-19 2021-05-19 Travel 1.2.840.1 1.2.446.727 0997 074759 Methodi 00:00:00 00:00:[address] 3.430.2.7 0.2.7.3.698 Ho spita .3.235313 084.8 l .8 2021-05-09 2021-05-09 Travel 1.2.840.1 1.2.170.444 1376 234965 Methodi 00:00:00 00:00:[address] 3.430.2.7 0.2.7.3.698 Ho spita .3.699956 084.8 l .8 2021-05-09 2021-05-09 [facility] [id number] 977 [place] 00:00:00 00:00:00 PEGGY [address] 2021-05-06 2021-05-06 Orders Istre, 1.2.840.1 [id number] 872173 4104 Methodi 00:00:00 00:00:00 Only Shell 84433.1.[address] Doe 3.430.2.7 Hospi ta .3.642099 l .8 2021-05-05 2021-05-05 Outpatient [facility] [id number] 738 [place] 00:00:00 00:00:00 PEGGY [address] 2021-05-04 2021-05-04 Emergency Oghogho, 1.2.840.1 [id number] 492 [id number] Methodi 14:39:00 18:56:[address] 3.430.2.7 Hospit a .3.218235 l .8 2021-05-04 2021-05-04 Travel 1.2.840.1 1.2.906.411 4852 206572 Methodi 00:00:00 00:00:[address] 3.430.2.7 0.2.7.3.698 Ho spita .3.637121 084.8 l .8 2021-05-02 2021-05-02 Outpatient ATHENS, [facility] [id number] 9559 [place] 00:00:00 00:00:00 [facility] 2021-04-30 2021-04-30 Travel 1.2.840.1 1.2.538.726 2759 010857 Methodi 00:00:00 00:00:[address] 3.430.2.7 0.2.7.3.698 Ho spita .3.929911 084.8 l .8 2021-04-28 2021-04-28 Orders Istre, 1.2.840.1 476773030 139081 5130 Methodi 00:00:00 00:00:00 Only Shell 88475.1.[address] [place] 3.430.2.7 Hospi ta .3.794381 l .8 2021-04-17 2021-04-17 Office Istre, 1.2.840.1 443200312 178291 9244 Methodi 15:00:00 15:00:06 Visit Shell 50979.1.[address] Doe 3.430.2.7 Hospi ta .3.172295 l .8 2021-04-16 2021-04-16 Travel 1.2.840.1 1.2.557.867 7584 682766 Methodi 00:00:00 00:00:[address] 3.430.2.7 0.2.7.3.698 Ho spita .3.834700 084.8 l .8 2021-04-12 2021-04-12 Emergency Svach, 1.2.840.1 [id number] 2099 944682 Methodi 15:47:00 22:48:00 Shine R [address]173.1.[address] 3.430.2.7 Hospit a .3.458506 l .8 2021-04-08 2021-04-08 Travel 1.2.840.1 1.2.983.134 1202 382058 Methodi 00:00:00 00:00:[address] 3.430.2.7 0.2.7.3.698 Ho spita .3.803642 084.8 l .8 2021-03-28 2021-03-28 Office dE Mirelesjillian Des [facility] [id number] 1 [id number] [place] 08:30:00 09:30:00 Visit Jackie [facility] 2021-03-28 2021-03-28 [facility] [id number] 6844 [place] 00:00:00 00:00:00 [facility] 2021-03-14 2021-03-14 Outpatient RADHA, [facility] [id number] 1468 [place] 00:00:00 00:00:00 [facility] 2021-03-03 2021-03-03 Telephone Alicia, 1.2.840.1 [id number] 2099 360619 Methodi 11:20:00 11:48:51 Consult Shell 38121.1.[address] [place] 3.430.2.7 Hospi ta .3.157768 l .8 2021-02-27 2021-02-27 Travel 1.2.840.1 1.2.589.958 2966 622891 Methodi 00:00:00 00:00:[address] 3.430.2.7 0.2.7.3.698 Ho spita .3.352613 084.8 l .8 2021-02-19 2021-02-19 Outpatient VECHONGA, [facility] 2100 [id number] [place] 00:00:00 00:00:00 PIMPRAPA 626 Metho di 2021-02-17 2021-02-17 Outpatient [facility] [id number] 297 [place] 00:00:00 00:00:00 482 Method i 2021-02-17 2021-02-17 Outpatient STACI, [facility] [id number] 406 [place] 00:00:00 00:00:00 PROCTOR 706 Method i 2021-02-10 2021-02-10 Outpatient TAVARES, [facility] [id number] 790 [place] 00:00:00 00:00:00 PEGGY [address] 2021-02-07 2021-02-07 Outpatient ALICIA, [facility] [id number] 637 [place] 00:00:00 00:00:00 SHELL 793 Method i 2021-01-30 2021-01-31 Outpatient IMELDA, [facility] 769 [id number] 174 [place] 00:00:00 00:00:00 KRISTY 451 Method i 2021-01-25 2021-01-25 Emergency KENA KILLIAN [facility] 064 83916 35236 [place] 00:00:00 00:00:00 190 Method i 2021-01-24 2021-01-24 Outpatient VEJCELIA, [facility] 2100 [id number] [place] 00:00:00 00:00:00 PIMPRAPA 711 Metho di 2021-01-09 2021-01-09 Outpatient [facility] [id number] 646 [place] 00:00:00 00:00:00 247 Method i 2020-12-29 2020-12-29 Emergency VASQUEZ, [facility] 064 [id number] 98 [place] 00:00:00 00:00:00 CRISTÓBAL 225 Method i 2020-12-23 2020-12-23 Outpatient PRASANTH, [facility] [id number] 498 [place] 00:00:00 00:00:00 EDDIE 305 Method i 2020-12-11 2020-12-11 Emergency VASQUEZ, [facility] 064 [id number] 96 [place] 00:00:00 00:00:00 CRISTÓBAL 030 Method i 2020-12-08 2020-12-08 Emergency SHERWIN, [facility] 064 [id number] 26 [place] 00:00:00 00:00:00 TRUNG 699 Method i 2020-11-25 2020-11-26 Office Doug Estevez [facility] Encounter/ Legacy 00:00:00 00:00:00 Visit Symone Moreau 0391 Communi [id number] [facility] 2020-11-25 2020-11-26 Office Doug Estevez [facility] Encounter/ Legacy 00:00:00 00:00:00 Visit Symone Moreau [id number] 1823 Communi [id number] [facility] 2020-11-18 2020-11-18 Outpatient SMALL, [facility] [id number] 074 [place] 00:00:00 00:00:00 PROCTOR 729 Method i 2020-11-02 2020-11-02 Emergency HALEY, [facility] [id number] 062 [place] 00:00:00 00:00:00 ROGER 241 Method i 2020-10-29 2020-10-29 Outpatient SMALL, [facility] [id number] 857 [place] 00:00:00 00:00:00 PROCTOR 983 Method i 2020-10-25 2020-10-25 Outpatient VEJPONGSA, [facility] 2100 [id number] [place] 00:00:00 00:00:00 PIMPRAPA 573 Metho di 2020-10-24 2020-10-24 Outpatient VEJPONGSA, [facility] 2100 [id number] [place] 00:00:00 00:00:00 PIMPRAPA 921 Metho di 2020-10-18 2020-10-19 Emergency HOPE, [facility] 064 [id number] 58 [place] 00:00:00 00:00:00 TRUNG 724 Method i 2020-10-18 2020-10-18 Outpatient SMALL, [facility] [id number] 110 [place] 00:00:00 00:00:00 PROCTOR 224 Method i 2020-10-11 2020-10-11 Emergency HUDSON, [facility] 064 [id number] 52 [place] 00:00:00 00:00:00 TRUNG 080 Method i 2020-10-09 2020-10-09 Outpatient PRASANTH, [facility] [id number] 499 [place] 00:00:00 00:00:00 EDDIE 020 Method i 2020-10-01 2020-10-01 Outpatient AHMED, [facility] [id number] 980 [place] 00:00:00 00:00:00 MOHAMMAD 768 Metho di 2020-09-26 2020-09-26 Outpatient SMALL, [facility] [id number] 765 [place] 00:00:00 00:00:00 PROCTOR 047 Method i 2020-09-13 2020-09-13 Outpatient PRASANTH, [facility] [id number] 045 [place] 00:00:00 00:00:00 EDDIE 249 Method i 2020-09-11 2020-09-11 Outpatient VEJPONGSA, [facility] 2100 [id number] [place] 00:00:00 00:00:00 PIMPRAPA 754 Metho di 2020-08-23 2020-08-23 Outpatient AHMED, [facility] [id number] 605 [place] 00:00:00 00:00:00 MOHAMMAD 132 Metho di 2020-08-19 2020-08-21 Outpatient MELTON, [facility] [id number] 265 [place] 00:00:00 00:00:00 TRUNG 187 [facility] 2020-07-31 2020-08-01 Outpatient ARREDONDO, [place] [address] [id number] 975 [place] 00:00:00 00:00:00 RG 628 Met hodi 2020-07-16 2020-07-16 Emergency HOPE, [place] [address] [id number] 18 [place] 00:00:00 00:00:00 TRUNG 600 [facility] i 2020-07-05 2020-07-05 Outpatient BROCK, [facility] [id number] [place] 00:00:00 00:00:00 [facility] 2020-07-05 2020-07-05 Emergency VASQUEZ, [facility] [id number] 62 [place] 00:00:00 00:00:00 CRISTÓBAL 088 Method i 2020-06-28 2020-06-28 Outpatient SMALL, [facility] [id number] 302 [place] 00:00:00 00:00:00 PROCTOR 174 [facility] i 2020-06-27 2020-06-27 Outpatient PRASANTH, [facility] [id number] 221 [place] 00:00:00 00:00:00 EDDIE 576 [facility] 2020-06-24 2020-06-24 Outpatient ISTRE, [facility] [id number] [place] 00:00:00 00:00:00 SHELL 509 [facility] i 2020-06-19 2020-06-20 Emergency NONDENOMINATIONAL, [facility] [id number] 53 [place] 00:00:00 00:00:00 NADIM 685 [facility] i 2020-06-11 2020-06-11 Outpatient SMALL, [facility] [id number] 229 [place] 00:00:00 00:00:00 PROCTOR 214 [facility] i 2020-06-11 2020-06-11 Outpatient SMALL, [facility] [id number] [place] 00:00:00 00:00:00 PROCTOR 956 Method i 2020-06-06 2020-06-06 Outpatient ISTRE, [facility] [id number] 806 [place] 00:00:00 00:00:00 SHELL 498 [facility] i 2020-06-03 2020-06-03 Outpatient ISTRE, [facility] [id number] 559 [place] 00:00:00 00:00:00 SHELL 193 [facility] i 2020-06-03 2020-06-03 Outpatient ISTRE, [facility] [id number] 559 [place] 00:00:00 00:00:00 SHELL 363 [facility] i 2020-05-26 2020-05-27 Outpatient SMALL, [place] [address] [id number] 252 [place] 00:00:00 00:00:00 HAYLEE 766 Method i 2020-05-24 2020-05-24 Emergency JOSSY, [place] [address] [id number] 24 [place] 00:00:00 00:00:00 BELKIS 964 Method i 2020-05-23 2020-05-23 Emergency FORMAN, [place] [address] [id number] 56 [place] 00:00:00 00:00:00 TANIA 926 Method i 2020 2020 Outpatient ISTRE, [facility] [id number] 895 [place] 00:00:00 00:00:00 SHELL 882 Method i 2020 2020 Emergency KENDIG, [facility] 064 [id number] 65 [place] 00:00:00 00:00:00 KALIF 304 [facility] i 2020-05-20 2020-05-20 Outpatient ISTRE, [facility] [id number] 407 [place] 00:00:00 00:00:00 SHELL 217 Method i 2020-05-13 2020-05-13 Outpatient MIRELES, [facility] [id number] [place] 00:00:00 00:00:00 TRACILYN Healt 2020-05-11 2020-05-11 Emergency HOPE, [facility] [id number] [id number] 87 [place] 00:00:00 00:00:00 TRUNG [address] 2020-05-07 2020-05-[address] [facility] [id number] [place] 07:48:18 07:48:18 Health 2020-04-15 2020-04-15 Emergency KENA KILLIAN [facility] [id number] [place] 00:00:00 00:00:[address] 2020-04-01 2020-04-01 Emergency KI, [facility] 064 [id number] 10 [place] 00:00:00 00:00:00 KALIF [address] 2020-03-23 2020-03-24 Inpatient CHRISTA, [facility] [id number] [place] 00:00:00 00:00:00 STEPHY 252 Method i 2020-03-23 2020-03-23 Emergency HOPE, [facility] 064 [id number] 79 [place] 00:00:00 00:00:00 TRUNG [address] 2020-03-20 2020-03-20 Emergency ALTAGRACIA VILLASENOR [facility] 064 [id number] [place] 00:00:00 00:00:00 875 Method i 2020-02-29 2020-03-01 Emergency DE KARLEY, [place] [address] [id number] [place] 00:00:00 00:00:00 CHRISTJUAN DIEGO 731 Me thodi 2020-02-05 2020-02-06 Emergency ENE, [facility] [id number] [place] 00:00:00 00:00:00 KEM 185 Meth john 2020-02-03 2020-02-03 Emergency DE KARLEY, [place] [address] [id number] [place] 00:00:00 00:00:00 EMY [address] 2019-12-20 2019-12-21 Emergency ENE, [facility] 064 [id number] [place] 00:00:00 00:00:00 KEM [address] 2019-12-14 2019-12-14 Emergency KI, [facility] 064 [id number] 06 [place] 00:00:00 00:00:00 KALIF [address] 2019-12-11 2019-12-11 Emergency HOPE, [facility] 064 [id number] 68 [place] 00:00:00 00:00:00 TRUNG [address] 2019-12-08 2019-12-08 Emergency SUSHIL, [facility] 058 [id number] 034 [place] 00:00:00 00:00:00 ISAC [address] 2019-11-24 2019-11-[address] [facility] [id number] [place] 00:00:00 00:00:00 Health 2019-11-21 2019-11-21 Emergency NELSON VILLAGRAN [facility] [id number] [place] 00:00:00 00:00:[address] 2019-11-14 2019-11-[address] [facility] [id number] [place] 06:55:06 06:55:06 Health 2019-11-13 2019-11-[address] [facility] [id number] [place] 00:00:00 00:00:00 2019-11-10 2019-11-11 Emergency HOPE, [facility] 064 [id number] 84 [place] 00:00:00 00:00:00 TRUNG [place] [facility] 2019-11-07 2019-11-[address] [facility] [id number] [place] 14:24:03 14:24:03 Health 2019-11-07 2019-11-[address] [facility] [id number] [place] 12:22:44 12:22:44 Health 2019-11-07 2019-11-[address] [facility] [id number] [place] 00:00:00 00:00:00 2019-11-07 2019-11-[address] [facility] [id number] [place] 00:00:00 00:00:00 Health 2019-10-30 2019-10-[address] [facility] [id number] [place] 11:49:58 11:49:58 Health 2019-10-30 2019-10-[address] [facility] [id number] [place] 00:00:00 00:00:00 Health 2019-10-12 2019-10-[address] [facility] [id number] [place] 00:00:00 00:00:00 Health 2019-10-10 2019-10-[address] [facility] [id number] [place] 08:15:33 08:15:33 Health 2019-10-09 2019-10-[address] [facility] [id number] [place] 00:00:00 00:00:00 Health 2019-09-25 2019-09-[address] [facility] [id number] [place] 00:00:00 00:00:00 Health 2019-09-19 2019-09-[address] [facility] [id number] [place] 15:17:15 15:17:15 Health 2019-09-12 2019-09-[address] [facility] [id number] [place] 09:33:27 09:33:27 Health 2019-09-12 2019-09-[address] [facility] [id number] [place] 08:35:47 08:35:47 Health 2019-09-12 2019-09-[address] [facility] [id number] [place] 00:00:00 00:00:00 Health 2019-09-09 2019-09-09 Emergency HOPE, [facility] [id number] [place] 00:00:00 00:00:00 [address] 2019-08-25 2019-08-[address] [facility] [id number] [place] 06:54:32 06:54:32 Health 2019-08-24 2019-08-[address] [facility] [id number] [place] 00:00:00 00:00:00 2019-08-23 2019-08-[address] [facility] [id number] [place] 00:00:00 00:00:00 Health 2019-08-05 2019-08-05 Emergency [facility] [id number] [place] 00:00:00 00:00:00 OTILIO, [address] 2019-08-03 2019-08-03 Emergency [place] [id number] [place] 00:00:00 00:00:[address] 2019-07-24 2019-07-[address] [facility] [id number] [place] 08:35:14 08:35:14 Health 2019-06-21 2019-06-[address] [facility] [id number] [place] 00:00:00 00:00:00 Health 2019-06-15 2019-06-16 Emergency HOPE, [facility] [id number] [place] 00:00:00 00:00:00 TRUNG [address] 2019-06-15 2019-06-15 Emergency [facility] [id number] [place] 14:03:00 14:03:00 Health 2019-06-14 2019-06-[address] [facility] [id number] [place] 00:00:00 00:00:00 Health 2019-06-08 2019-06-[address] [facility] [id number] [place] 13:49:26 13:49:26 Health 2019-06-08 2019-06-[address] [facility] [id number] [place] 13:11:00 13:11:00 [facility] 2019-06-08 2019-06-[address] [facility] [id number] [place] 00:00:00 00:00:00 [facility] 2019-06-07 2019-06-[address] [facility] [id number] [place] 12:06:12 12:06:12 [facility] 2019-06-07 2019-06-07 Emergency [facility] [id number] [place] 10:57:48 10:57:48 [facility] 2019-03-15 2019-03-[address] [facility] [id number] [place] 14:00:36 14:00:36 [facility] 2019-03-15 2019-03-[address] [facility] [id number] [place] 12:20:09 12:20:09 [facility] 2019-03-15 2019-03-[address] [facility] [id number] [place] 00:00:00 00:00:00 [facility] 2019-01-25 2019-01-[address] [facility] [id number] [place] 10:20:47 10:20:47 [facility] 2019-01-13 2019-01-[address] [facility] [id number] [place] 10:25:55 10:25:55 Health 2019-01-03 2019-01-[address] [facility] [id number] [place] 10:33:43 10:33:43 [facility] 2019-01-03 2019-01-[address] [facility] [id number] [place] 08:40:50 08:40:50 [facility] 2019-01-03 2019-01-[address] [facility] [id number] [place] 07:58:31 07:58:31 Health 2019-01-03 2019-01-[address] [facility] [id number] [place] 00:00:00 00:00:00 [facility] 2018-12-29 2018-12-[address] [facility] [id number] [place] 00:00:00 00:00:00 [facility] 2018-12-27 2018-12-[address] [facility] [id number] [place] 00:00:00 00:00:00 [facility] 2018-12-26 2018-12-[address] [facility] [id number] [place] 16:37:58 16:37:58 Health 2018-12-09 2018-12-[address] [facility] [id number] [place] 16:51:56 16:51:56 Health 2018-12-09 2018-12-[address] [facility] [id number] [place] 14:15:31 14:15:31 Health 2018-12-09 2018-12-[address] [facility] [id number] [place] 00:00:00 00:00:00 [facility] 2018-11-26 2018-11-26 Emergency [facility] [id number] [place] 16:08:40 16:08:40 [facility] 2018-01-17 2018-01-17 Outpatient E MYRNA CEDENO [facility] [id number] [place] 10:49:00 12:30:00 [facility] [place] 2017-12-28 2017-12-28 Outpatient E MILES [facility] [id number] [place] 10:12:00 12:25:00 [facility] 2017-12-20 2017-12-20 Outpatient E MYRNA CEDENO [facility] [id number] [place] 23:13:00 23:50:[facility] [place] 2017-10-15 2017-10-15 Outpatient E SHEIKH [facility] [id number] [place] 09:57:00 11:15:00 [facility] Results Test Description Test Time Test Comments Results Result Comments Source ECG 12 lead 2022-03-24 04:27:49 Test Item Value Reference Range Interpretation Comme nts Ventricular rate (test code = 253) Atrial rate (test code = 255) MN interval (test code = 266) QRSD interval [...] of 28-NOV-2021 10:26,-No significant change was found- [facility] [id number] 04:27:49 Test Item Value Reference Range Interpretation Comments Ventricular rate (test code = 253) Atrial rate (test code = 255) MN interval (test code = 266) QRSD interval [...] of 28-NOV-2021 10:26,-No significant change was found- [address]2022-12-13 04:27:49 Test Item Value Reference Range Interpretation Comments Ventricular rate (test code = 253) Atrial rate (test code = 255) MN interval (test code = 266) QRSD interval [...] of 28-NOV-2021 10:26,-No significant change was found- [address]2022-12-13 04:27:49 Test Item Value Reference Range Interpretation Comments Ventricular rate (test 71 code = 253) Atrial rate (test code 71 = 255) MN interval (test code 124 = 266) QRSD [...] of 28-NOV-2021 10:26,-No significant change was found- [address]2022-12-13 04:27:49 Test Item Value Reference Range Interpretation Comments Ventricular rate (test 71 code = 253) Atrial rate (test code 71 = 255) MN interval (test code 124 = 266) QRSD [...] of 28-NOV-2021 10:26,-No significant change was found- [address]2022-12-13 04:27:49 Test Item Value Reference Range Interpretation Comments Ventricular rate (test 71 code = 253) Atrial rate (test code 71 = 255) MN interval (test code 124 = 266) QRSD [...] of 28-NOV-2021 10:26,-No significant change was found- [address]2022-12-13 04:27:49 Test Item Value Reference Range Interpretation Comments Ventricular rate (test 71 code = 253) Atrial rate (test code 71 = 255) MN interval (test code 124 = 266) QRSD [...] of 28-NOV-2021 10:26,-No significant change was found- [address]2022-12-13 04:27:49 Test Item Value Reference Range Interpretation Comments Ventricular rate (test 71 code = 253) Atrial rate (test code 71 = 255) MN interval (test code 124 = 266) QRSD [...] of 28-NOV-2021 10:26,-No significant change was found- [facility]2022-11-10 23:39:00 Test Item Value Reference Range Interpretation Comments Urine culture (test SEE COMMENT Bacteriu brandon screen code = 1300991) negative. [facility]2022-11-10 23:39:00 Test Item Value Reference Range Interpretation Comments Urine culture (test SEE COMMENT Bacteriu brandon screen code = 0695601) negative. [facility]2022-11-10 23:39:00 Test Item Value Reference Range Interpretation Comments Urine culture (test SEE COMMENT Bacteriu brandon screen code = 6274426) negative. [facility]2022-11-10 23:39:00 Test Item Value Reference Range Interpretation Comments Urine culture (test SEE COMMENT Bacteriu brandon screen code = 8033115) negative. [facility]2022-11-10 23:39:00 Test Item Value Reference Range Interpretation Comments Urine culture (test SEE COMMENT Bacteriu brandon screen code = 1724434) negative. [facility]2022-11-10 23:39:00 Test Item Value Reference Range Interpretation Comments Urine culture (test SEE COMMENT Bacteriu brandon screen code = 4285582) negative. [facility]2022-11-10 23:39:00 Test Item Value Reference Range Interpretation Comments Urine culture (test SEE COMMENT Bacteriu brandon screen code = 5672831) negative. [facility]2022-11-10 23:39:00 Test Item Value Reference Range Interpretation Comments Urine culture (test SEE COMMENT Bacteriu brandon screen code = 2215611) negative. [facility]2022-11-10 23:39:00 Test Item Value Reference Range Interpretation Comments Urine culture (test SEE COMMENT Bacteriu brandon screen code = 6076643) negative. [facility] [id number] 23:39:00 Test Item Value Reference Range Interpretation Comments Urine culture (test SEE COMMENT Bacteriu brandon screen code = 5570642) negative. [facility] [id number] 23:39:00 Test Item Value Reference Range Interpretation Comments Urine culture (test SEE COMMENT Bacteriu brandon screen code = 1090699) negative. [facility] B surface [id number] 22:17:00 Test Item Value Reference Range Interpretation Comments Hepatitis B surface NON-REACTIVE NON-REACTIVE Ag (test code = 5196-1) RAC (test code = RAC) Performing Organization Information: Site ID: RGA Name: [facility] Lab Address: [address] [place] [address] Director: Rajinder Grant [facility] with reflex to [id number] 22:17:00 Test Item Value Reference Range Interpretation Comments RPR (test code = NON-REACTIVE NON-REACTIVE 53908-6) RAC (test code = Performing Organization RAC) Information: Site ID: RGA Name: [facility] Lab Address: [address] [place] [address] Director: Rajinder Grant [facility] C virus (HCV), quantitative [id number] 22:17:00 Test Item Value Reference Interpretation Comments Range HCV RNA, <15 NOT DETECTED NOT DETECTED quantitative PCR IU/mL (test code = 69710-2) HCV viral log <1.18 NOT DETECTED NOT DETECTED This bhupendra t was (test code = Log IU/mL performed using 27937-9) Real-Time Polym erase ChainReaction. Reportable Rang e: 15 IU/mL to 100,00 0,000 IU/mL(1.18 Log IU/mL to 8.00 Log IU/ mL). The analytical performance characteristics of thisassay have been determined by [employer]. Th e modifications h ave not been cleare d or approved bythe FDA. This assay has been validated pursu ant to the CLIA regulations and is used for clinic al purposes. For m ore information on this test, go to:http://educa dylon. [employer] /faq/EEU74n0(Th is link is being provided for informational/e ducat ional purposes only.) RAC (test code = Performing RAC) Organization Information: Site ID: IG Name: [facility] Address: [address] [place] [address] Director: Dr. Rajinder Grant [facility]iscoHepatitis C [id number] 22:17:00 Test Item Value Reference Interpretation Comments Range Hepatitis C Ab (test REACTIVE NON-REACTIVE A code = 59917-0) Signal/cutoff (test >11.00 See_Comment H Based o n this code = 83448-2) result, the sample will be testedf or [...] RAC) Organization Information: Site ID: RGA Name: [facility] Lab Address: [address] [place] [address] Director: Rajinder Grant Lab Interpretation Abnormal (test code = 94793-8) [facility]iscoHSV type 1/2 combined Ab, [id number] 22:17:00 Test Item Value Reference Interpretation Comments Range HSV 1 IgM NEGATIVE (test code = 46321-6) HSV 2 IgM NEGATIVE REFERENCE RANG E: NEGATIVE HSV (test IgM is detectab le in serum code = [facility] >90% [facility] 29636-2) primary HSV inf ection. However, HSV Ig [...] performancechar acteristics have been deter mined by [facility].It has not been cleared or appr luis by FDA. This assay hasb een validated pursuant to the CLIA regulations and isused for clinical purpos es. RAC (test Performing code = Organization RAC) Information: Site ID: EZ Name: [facility], Address: [address] [place] [address] Director: Crista Camacho MD,PhD,BARI [facility]iscoHIV 1/2 antigen/antibody, fourth generation, with reflexes 2022-02-11 22:17:00 Test Item Value Reference Range Interpretation Comments HIV NON-REACTIVE NON-REACTIVE HIV-1 antigen a nd antigen/ant HIV-1/HIV-2 ant ibodies ibody 4th were notdetecte d. There gen (test is no laborator y evidence code = of HIVinfection . PLEASE 00232-7) NOTE: This info rmation has been disclo [...] ad ditional information ple ase refer tohttp://educat ion.AlephD.[employer] Locate/ faq/LKK775 (This link is b eing provided for informational/e ducational purposes only.) The performance of this assay has not been clinicallyvalid ated in patients less t lagunas 2 years old. RAC (test Performing code = RAC) Organization Information: Site ID: RGA [facility]: [facility] Address: [address] [place] [address] Director: Rajinder Grant [facility]iscoHSV 1 and 2 specific Ab [id number] 22:17:00 Test Item Value Reference Interpretation Comments [...] ease refer to http://educatio n.Ques tDiagnostics.co m/faq/ LDO927 (This li nk is being provided for informational/e ducati onal purposes o nly.) RAC (test code = Performing RAC) Organization Information: Site ID: IG Name: [facility] Address: [address] [place] [address] Director: Dr. Rajinder Grant Lab Interpretation Abnormal (test code = 14092-2) [facility]Hen[facility] B surface [id number] 22:17:00 Test Item Value Reference Range Interpretation Comments Hepatitis B surface NON-REACTIVE NON-REACTIVE Ag (test code = 5196-1) RAC (test code = RAC) Performing Organization Information: Site ID: RGA Name: [facility] Address: [address] [place] [address] Director: Rajinder Grant [facility] FriscoRPR with reflex to [id number] 22:17:00 Test Item Value Reference Range Interpretation Comments RPR (test code = NON-REACTIVE NON-REACTIVE 30077-4) RAC (test code = Performing Organization RAC) Information: Site ID: RGA [facility]: [facility] Address: [address] [place] [address] Director: Rajinder Grant [facility] C virus (HCV), quantitative [id number] 22:17:00 Test Item Value Reference Interpretation Comments Range HCV RNA, <15 NOT DETECTED NOT DETECTED quantitative PCR IU/mL (test code = 54611-3) HCV viral log <1.18 NOT DETECTED NOT DETECTED This bhupendra t was (test code = Log IU/mL performed using 11971-1) Real-Time Polym erase ChainReaction. Reportable Rang e: 15 IU/mL to 100,00 0,000 IU/mL(1.18 Log IU/mL to 8.00 Log IU/ mL). The analytical performance characteristics of thisassay have been determined by [employer]. Th e modifications h ave not been cleare d or approved bythe FDA. This assay has been validated pursu ant to the CLIA regulations and is used for clinic al purposes. For m ore information on this test, go to:http://WOO Sportsa Mission Street Manufacturingon. [employer] /faq/CAG46j3(Th is link is being provided for informational/e ducat ional purposes only.) RAC (test code = Performing RAC) Organization Information: Site ID: IG Name: [facility] Address: [address] [place] [address] Director: Dr. Rajinder Grant [facility] C [id number] 22:17:00 Test Item Value Reference Interpretation Comments Range Hepatitis C Ab (test REACTIVE NON-REACTIVE A code = 38338-1) Signal/cutoff (test >11.00 See_Comment H Based o n this code = 55860-9) result, the sample will be testedf or [...] RAC) Organization Information: Site ID: RGA Name: [facility] Lab Address: [address] [place] [address] Director: Rajinder Grant Lab Interpretation Abnormal (test code = 10965-6) [facility] type 1/2 combined Ab, [id number] 22:17:00 Test Item Value Reference Interpretation Comments Range HSV 1 IgM NEGATIVE (test code = 18532-1) HSV 2 IgM NEGATIVE REFERENCE RANG E: NEGATIVE HSV (test IgM is detectab le in serum code = from >90% of pa tracey 76238-8) primary HSV inf ection. However, HSV Ig [...] performancechar acteristics have been deter mined by [employer].It has not been cleared or appr luis by FDA. This assay hasb een validated pursuant to the CLIA regulations and isused for clinical purpos es. RAC (test Performing code = Organization RAC) Information: Site ID: EZ Name: [facility], Address: [address] [place] [address] Director: Crista Camacho MD,PhD,BARI [facility] Health CenterHIV 1/2 antigen/antibody, fourth generation, with reflexes 2022-02-11 22:17:00 Test Item Value Reference Range Interpretation Comments HIV NON-REACTIVE NON-REACTIVE HIV-1 antigen a nd antigen/ant HIV-1/HIV-2 ant ibodies ibody 4th were notdetecte d. There gen (test is no laborator y evidence code = of HIVinfection . PLEASE 61578-1) NOTE: This info rmation has been disclo [...] ad ditional information ple ase refer tohttp://educat ion.[employer]/ faq/LAP936 (This link is b eing provided for informational/e ducational purposes only.) The performance of this assay has not been clinicallyvalid ated in patients less t lagunas 2 years old. RAC (test Performing code = RAC) Organization Information: Site ID: BEBA Name: [facility] Address: [address] [place] [address] Director: Rajinder Grant [facility]iscoHSV 1 and 2 specific Ab [id number] 22:17:00 Test Item Value Reference Interpretation Comments [...] additional information, pl ease refer to http://educatio n.Viv[employer].com /faq/FA Q118 (This link is being provided for informational/e ducatio nal purposes on ly.) RAC (test code = Performing RAC) Organization Information: Site ID: IG Name: [facility] Lab Address: [address] [place] [address] Director: Dr. Rajinder Grant Lab Interpretation Abnormal (test code = 05510-7) [facility]iscoHep[facility] B surface [id number] 22:17:00 Test Item Value Reference Range Interpretation Comments Hepatitis B surface NON-REACTIVE NON-REACTIVE Ag (test code = 5196-1) RAC (test code = RAC) Performing Organization Information: Site ID: RGA Name: [facility] Address: [address] [place] [address] Director: Rajinder Grant [facility]RP with reflex to [id number] 22:17:00 Test Item Value Reference Range Interpretation Comments RPR (test code = NON-REACTIVE NON-REACTIVE 03195-5) RAC (test code = Performing Organization RAC) Information: Site ID: RGA Name: [facility] Address: [address] [place] [address] Director: Rajinder Grant [facility] C virus (HCV), quantitative [id number] 22:17:00 Test Item Value Reference Interpretation Comments Range HCV RNA, <15 NOT DETECTED NOT DETECTED quantitative PCR IU/mL (test code = 82612-1) HCV viral log <1.18 NOT DETECTED NOT DETECTED This bhupendra t was (test code = Log IU/mL performed using 27165-6) Real-Time Polym erase ChainReaction. Reportable Rang e: 15 IU/mL to 100,00 0,000 IU/mL(1.18 Log IU/mL to 8.00 Log IU/ mL). The analytical performance characteristics of thisassay have been determined by [employer]. Th e modifications h ave not been cleare d or approved bythe FDA. This assay has been validated pursu ant to the CLIA regulations and is used for clinic al purposes. For m ore information on this test, go to:http://educa tion. [employer] /faq/OGH55f2(Th is link is being provided for informational/e ducat ional purposes only.) RAC (test code = Performing RAC) Organization Information: Site ID: IG Name: [facility] Address: [address] [place] [address] Director: Dr. Rajinder Grant [facility] C [id number] 22:17:00 Test Item Value Reference Interpretation Comments Range Hepatitis C Ab (test REACTIVE NON-REACTIVE A code = 32965-3) Signal/cutoff (test >11.00 See_Comment H Based o n this code = 19692-5) result, the sample will be testedf or [...] RAC) Organization Information: Site ID: RGA Name: [facility] Lab Address: [address] [place] [address] Director: Rajinder Grant Lab Interpretation Abnormal (test code = 88936-7) [facility] type 1/2 combined Ab, [id number] 22:17:00 Test Item Value Reference Interpretation Comments Range HSV 1 IgM NEGATIVE (test code = 88048-5) HSV 2 IgM NEGATIVE REFERENCE RANG E: NEGATIVE HSV (test IgM is detectab le in serum code = from >90[facility] [address]-4) primary HSV inf ection. However, HSV Ig [...] performancechar acteristics have been deter mined by [employer].It has not been cleared or appr luis by FDA. This assay hasb een validated pursuant to the CLIA regulations and isused for clinical purpos es. RAC (test Performing code = Organization RAC) Information: Site ID: EZ Name: [facility], Address: [address] [place] [address] Director: Crista Camacho MD,PhD,BARI [facility]HIV 1/2 antigen/antibody, fourth generation, with reflexes 2022-02-11 22:17:00 Test Item Value Reference Range Interpretation Comments HIV NON-REACTIVE NON-REACTIVE HIV-1 antigen a nd antigen/ant HIV-1/HIV-2 ant ibodies ibody 4th were notdetecte d. There gen (test is no laborator y evidence code = of HIVinfection . PLEASE 89223-7) NOTE: This info rmation has been disclo [...] ad ditional information ple ase refer tohttp://educat ion.[employer]/ faq/WPU904 (This link is b eing provided for informational/e ducational purposes only.) The performance of this assay has not been clinicallyvalid ated in patients less t lagunas 2 years old. RAC (test Performing code = RAC) Organization Information: Site ID: RGA Name: [facility] Address: [address] [place] [address] Director: Rajinder Grant [facility]HSV 1 and 2 specific Ab [id number] 22:17:00 Test Item Value Reference Interpretation Comments [...] ease refer to http://educatio n.Ques tDiagnostics.co m/faq/ FKL100 (This li nk is being provided for informational/e ducati onal purposes o nly.) RAC (test code = Performing RAC) Organization Information: Site ID: IG Name: [facility] Lab Address: [address] [place] [address] Director: Dr. Rajinder Grant Lab Interpretation Abnormal (test code = 79642-5) [facility] B surface [id number] 22:17:00 Test Item Value Reference Range Interpretation Comments Hepatitis B surface NON-REACTIVE NON-REACTIVE Ag (test code = 5196-1) RAC (test code = RAC) Performing Organization Information: Site ID: RGA Name: [facility] Address: [address] [place] [address] Director: Rajinder Grant [facility] with reflex to [id number] 22:17:00 Test Item Value Reference Range Interpretation Comments RPR (test code = NON-REACTIVE NON-REACTIVE 10297-9) RAC (test code = Performing Organization RAC) Information: Site ID: RGA Name: [facility] Address: [address] [place] [address] Director: Rajinder Grant [facility] C virus (HCV), quantitative [id number] 22:17:00 Test Item Value Reference Interpretation Comments Range HCV RNA, <15 NOT DETECTED NOT DETECTED quantitative PCR IU/mL (test code = 28308-0) HCV viral log <1.18 NOT DETECTED NOT DETECTED This bhupendra t was (test code = Log IU/mL performed using 68591-0) Real-Time Polym erase ChainReaction. Reportable Rang e: 15 IU/mL to 100,00 0,000 IU/mL(1.18 Log IU/mL to 8.00 Log IU/ mL). The analytical performance characteristics of thisassay have been determined by [employer]. Th e modifications h ave not been cleare d or approved bythe FDA. This assay has been validated pursu ant to the CLIA regulations and is used for clinic al purposes. For m ore information on this test, go to:http://educa tion. [employer] /faq/VHF76l9(Th is link is being provided for informational/e ducat ional purposes only.) RAC (test code = Performing RAC) Organization Information: Site ID: IG [facility]: [facility] Address: [address] [place] [address] Director: Dr. Rajinder Grant [facility] [id number] 22:17:00 Test Item Value Reference Interpretation Comments Range Hepatitis C Ab (test REACTIVE NON-REACTIVE A code = 91961-7) Signal/cutoff (test >11.00 See_Comment H Based o n this code = 04419-9) result, the sample will be testedf or [...] RAC) Organization Information: Site ID: RGA [facility] Address: [address] [place] [address] Director: Rajinder Grant Lab Interpretation Abnormal (test code = 15124-4) [facility]2 [facility] Ab, [id number] 22:17:00 Test Item Value Reference Interpretation Comments Range HSV 1 IgM NEGATIVE (test code = 47844-1) HSV 2 IgM NEGATIVE REFERENCE RANG E: NEGATIVE HSV (test IgM is detectab le in serum code = from >90% of [facility] 11328-9) primary HSV inf ection. However, HSV Ig [...] performancechar acteristics have been deter mined by [facility].It has not been cleared or appr luis by FDA. This assay hasb een validated pursuant to the CLIA regulations and isused for clinical purpos es. RAC (test Performing code = Organization RAC) Information: Site ID: EZ Name: [facility], Address: [address] [place] [address] Director: Crista Camacho MD,PhD,BARI [facility]HIV 1/2 antigen/antibody, fourth generation, with reflexes 2022-02-11 22:17:00 Test Item Value Reference Range Interpretation Comments HIV NON-REACTIVE NON-REACTIVE HIV-1 antigen a nd antigen/ant HIV-1/HIV-2 ant ibodies ibody 4th were notdetecte d. There gen (test is no laborator y evidence code = of HIVinfection . PLEASE 19735-8) NOTE: This info rmation has been disclo [...] ad ditional information ple ase refer tohttp://educat ion.[employer]/ faq/DUT830 (This link is b eing provided for informational/e ducational purposes only.) The performance of this assay has not been clinicallyvalid ated in patients less t lagunas 2 years old. RAC (test Performing code = RAC) Organization Information: Site ID: RGA [facility] Address: [address] [place] [address] Director: Rajinder Grant [facility]iscoHSV 1 and 2 specific Ab [id number] 22:17:00 Test Item Value Reference Interpretation Comments [...] ease refer to http://educatio n.Ques tDiagnostics.co m/faq/ JMQ387 (This li nk is being provided for informational/e ducati onal purposes o nly.) RAC (test code = Performing RAC) Organization Information: Site ID: IG Name: [facility] Address: [address] [place] [address] Director: Dr. Rajinder Grant Lab Interpretation Abnormal (test code = 33879-1) [facility] surface [id number] 22:17:00 Test Item Value Reference Range Interpretation Comments Hepatitis B surface NON-REACTIVE NON-REACTIVE Ag (test code = 5196-1) RAC (test code = RAC) Performing Organization Information: Site ID: RGA [facility] Address: [address] [place] [address] Director: Rajinder Grant [facility]iscoRP with reflex to [id number] 22:17:00 Test Item Value Reference Range Interpretation Comments RPR (test code = NON-REACTIVE NON-REACTIVE 01635-3) RAC (test code = Performing Organization RAC) Information: Site ID: RGA [facility] Address: [address] [place] [address] Director: Rajinder Grant [facility] C virus (HCV), quantitative [id number] 22:17:00 Test Item Value Reference Interpretation Comments Range HCV RNA, <15 NOT DETECTED NOT DETECTED quantitative PCR IU/mL (test code = 64654-3) HCV viral log <1.18 NOT DETECTED NOT DETECTED This bhupendra t was (test code = Log IU/mL performed using 57317-4) Real-Time Polym erase ChainReaction. Reportable Rang e: 15 IU/mL to 100,00 0,000 IU/mL(1.18 Log IU/mL to 8.00 Log IU/ mL). The analytical performance characteristics of thisassay have been determined by [employer]. Th e modifications h ave not been cleare d or approved bythe FDA. This assay has been validated pursu ant to the CLIA regulations and is used for clinic al purposes. For m ore information on this test, go to:http://[employer] [address] Manufacturingon. [employer] /faq/HFT96c6(Th is link is being provided for informational/e ducat ional purposes only.) RAC (test code = Performing RAC) Organization Information: Site ID: IG [facility]: [facility] Address: [address] [place] [address] Director: Dr. Rajinder Grant [facility] [id number] 22:17:00 Test Item Value Reference Interpretation Comments Range Hepatitis C Ab (test REACTIVE NON-REACTIVE A code = 08826-4) Signal/cutoff (test >11.00 See_Comment H Based o n this code = 00337-4) result, the sample will be testedf or [...] RAC) Organization Information: Site ID: RGA Name: [facility] Lab Address: [address] [place] [address] Director: Rajinder Grant Lab Interpretation Abnormal (test code = 24305-1) [facility]iscoHSV type 1/2 combined Ab, [id number] 22:17:00 Test Item Value Reference Interpretation Comments Range HSV 1 IgM NEGATIVE (test code = 63037-5) HSV 2 IgM NEGATIVE REFERENCE RANG E: NEGATIVE HSV (test IgM is detectab le in serum code = from >90% of [facility] 44264-1) primary HSV inf ection. However, HSV Ig [...] performancechar acteristics have been deter mined by [facility].It has not been cleared or appr luis by FDA. This assay hasb een validated pursuant to the CLIA regulations and isused for clinical purpos es. RAC (test Performing code = Organization RAC) Information: Site ID: EZ Name: [facility], Address: [address] [place] [address] Director: Crista Camacho MD,PhD,BARI [facility] HospitalHIV [facility]/2 antigen/antibody, fourth generation, with reflexes 2022-02-11 22:17:00 Test Item Value Reference Range Interpretation Comments HIV NON-REACTIVE NON-REACTIVE HIV-1 antigen a nd antigen/ant HIV-1/HIV-2 ant ibodies ibody 4th were notdetecte d. There gen (test is no laborator y evidence code = of HIVinfection . PLEASE 71199-7) NOTE: This info rmation has been disclo [...] ad ditional information ple ase refer tohttp://educat ion.AlephD.[employer] Loc[employer]/ faq/SDK804 (This link is b eing provided for informational/e ducational purposes only.) The performance of this assay has not been clinicallyvalid ated in patients less t lagunas 2 years old. RAC (test Performing code = RAC) Organization Information: Site ID: RGA [facility] Address: [address] [place] [address] Director: Rajinder Parker [facility] and 2 specific Ab [id number] 22:17:00 Test Item Value Reference Interpretation Comments [...] ease refer to http://educatio n.Ques tDiagnostics.co m/faq/ FTC771 (This li nk is being provided for informational/e ducati onal purposes o nly.) RAC (test code = Performing RAC) Organization Information: Site ID: IG Name: [facility] Lab Address: [address] [place] [address] Director: Dr. Rajinder Grant Lab Interpretation Abnormal (test code = 05156-5) [facility]iscoHepatitis B surface [id number] 22:17:00 Test Item Value Reference Range Interpretation Comments Hepatitis B surface NON-REACTIVE NON-REACTIVE Ag (test code = 5196-1) RAC (test code = RAC) Performing Organization Information: Site ID: RGA [facility] Address: [address] [place] [address] Director: Rajinder Grant [facility]iscoRPR with reflex to [id number] 22:17:00 Test Item Value Reference Range Interpretation Comments RPR (test code = NON-REACTIVE NON-REACTIVE 07980-6) RAC (test code = Performing Organization RAC) Information: Site ID: KATERINA Name: [facility] Address: [address] [place] [address] Director: Rajinder Parkre [facility] C virus (HCV), quantitative [id number] 22:17:00 Test Item Value Reference Interpretation Comments Range HCV RNA, <15 NOT DETECTED NOT DETECTED quantitative PCR IU/mL (test code = 19945-3) HCV viral log <1.18 NOT DETECTED NOT DETECTED This bhupendra t was (test code = Log IU/mL performed using 94390-5) Real-Time Polym erase ChainReaction. Reportable Rang e: 15 IU/mL to 100,00 0,000 IU/mL(1.18 Log IU/mL to 8.00 Log IU/ mL). The analytical performance characteristics of thisassay have been determined by [employer]. Th e modifications h ave not been cleare d or approved bythe FDA. This assay has been validated pursu ant to the CLIA regulations and is used for clinic al purposes. For m ore information on this test, go to:http://educa tion. [employer] /faq/ALJ16a8( is link is being provided for informational/e ducat ional purposes only.) RAC (test code = Performing [facility]) Organization Information: Site ID: IG [facility]: [facility] Address: [address] [place] [address] Director: Dr. Rajinder Grant [facility] C [id number] 22:17:00 Test Item Value Reference Interpretation Comments Range Hepatitis C Ab (test REACTIVE NON-REACTIVE A code = 82307-4) Signal/cutoff (test >11.00 See_Comment H Based o n this code = 62879-8) result, the sample will be testedf or HCV RNA by a Nucleic Acid Amplification T est (NAAT)to determ ine if the patient has a current activeinfection . [Automated message] The system which generated this result transmit aydin reference range : <=1.00. The reference range was not used to interpret this result as normal/abnormal . RAC (test code = Performing [facility]) Organization Information: Site ID: RGA [facility] Address: [address] [place] [address] Director: Rajinder Grant Lab Interpretation Abnormal (test code = 93121-8) [facility] HospitalHSV [facility]/2 combined Ab, [id number] 22:17:00 Test Item Value Reference Interpretation Comments Range HSV 1 IgM NEGATIVE (test code = 45976-7) HSV 2 IgM NEGATIVE REFERENCE RANG E: NEGATIVE HSV (test IgM is detectab le in serum code = from >90% of [place] tracey 14798-2) primary HSV inf ection. However, HSV Ig [...] performancechar acteristics have been deter mined by [facility].It has not been cleared or appr luis by FDA. This assay hasb een validated pursuant to the CLIA regulations and isused for clinical purpos es. RAC (test Performing code = Organization RAC) Information: Site ID: EZ Name: [facility], Address: [address] [place] [address] Director: Crista Camacho MD,PhD,BARI [facility] Health CenterHIV 1/2 antigen/antibody, fourth generation, with reflexes 2022-02-11 22:17:00 Test Item Value Reference Range Interpretation Comments HIV NON-REACTIVE NON-REACTIVE HIV-1 antigen a nd antigen/ant HIV-1/HIV-2 ant ibodies ibody 4th were notdetecte d. There gen (test is no laborator y evidence code = of HIVinfection . PLEASE 27470-8) NOTE: This info rmation has been disclo [...] ad ditional information ple ase refer tohttp://educat ion.[employer]/ faq/UTC338 (This link is b eing provided for informational/e ducational purposes only.) The performance of this assay has not been clinicallyvalid ated in patients less t lagunas 2 years old. RAC (test Performing code = RAC) Organization Information: Site ID: RGA [facility]: [facility] Address: [address] [place] [address] Director: Rajinder Grant [facility] and 2 specific Ab [id number] 22:17:00 Test Item Value Reference Interpretation Comments [...] additional information, pl ease refer to http://educatio n.[employer].Global Locate /faq/FA Q118 (This link is being provided for informational/e ducatio nal purposes on ly.) RAC (test code = Performing RAC) Organization Information: Site ID: IG [facility] Address: [address] [place] [address] Director: Dr. Rajinder Grant Lab Interpretation Abnormal (test code = 47973-1) [facility] B surface [id number] 22:17:00 Test Item Value Reference Range Interpretation Comments Hepatitis B surface NON-REACTIVE NON-REACTIVE Ag (test code = 5196-1) RAC (test code = RAC) Performing Organization Information: Site ID: RGA [facility] Address: [address] [place] [address] Director: Rajinder Grant [facility] HospitalRPR with reflex to [id number] 22:17:00 Test Item Value Reference Range Interpretation Comments RPR (test code = NON-REACTIVE NON-REACTIVE 51537-5) RAC (test code = Performing Organization RAC) Information: Site ID: RGA [facility] Address: [address] [place] [address] Director: Rajinder Grant [facility] C virus (HCV), quantitative [id number] 22:17:00 Test Item Value Reference Interpretation Comments Range HCV RNA, <15 NOT DETECTED NOT DETECTED quantitative PCR IU/mL (test code = 88717-0) HCV viral log <1.18 NOT DETECTED NOT DETECTED This bhupendra t was (test code = Log IU/mL performed using 93711-6) Real-Time Polym erase ChainReaction. Reportable Rang e: 15 IU/mL to 100,00 0,000 IU/mL(1.18 Log IU/mL to 8.00 Log IU/ mL). The analytical performance characteristics of thisassay have been determined by [employer]. Th e modifications h ave not been cleare d or approved bythe FDA. This assay has been validated pursu ant to the CLIA regulations and is used for clinic al purposes. For m ore information on this test, go to:http://educa tion. [employer] /faq/SXQ70j8(Th is link is being provided for informational/e ducat ional purposes only.) RAC (test code = Performing RAC) Organization Information: Site ID: IG [facility]: [facility] Address: [address] [place] [address] Director: Dr. Rajinder Grant [facility] C [id number] 22:17:00 Test Item Value Reference Interpretation Comments Range Hepatitis C Ab (test REACTIVE NON-REACTIVE A code = 06240-3) Signal/cutoff (test >11.00 <=1.00 H Based o n this code = 17140-7) result, the sample will be testedf or HCV RNA by a Nucleic Acid Amplification T est (NAAT)to determ ine if the patient has a current activeinfection . RAC (test code = Performing RAC) Organization Information: Site ID: RGA Name: [facility] Address: [address] [place] [address] Director: Rajinder Grant Lab Interpretation Abnormal (test code = 22002-7) [facility]V [facility] 1/2 combined Ab, [id number] 22:17:00 Test Item Value Reference Interpretation Comments Range HSV 1 IgM NEGATIVE (test code = 50929-5) HSV 2 IgM NEGATIVE REFERENCE RANG E: NEGATIVE HSV (test IgM is detectab le in serum code = from >90% of [facility] 02455-4) primary HSV inf ection. However, HSV Ig [...] performancechar acteristics have been deter mined by [facility].It has not been cleared or appr luis by FDA. This assay hasb een validated pursuant to the CLIA regulations and isused for clinical purpos es. RAC (test Performing code = Organization RAC) Information: Site ID: EZ Name: [facility], Address: [address] [place] [address] Director: Crista Camacho MD,PhD,BARI [facility]HIV 1/2 antigen/antibody, fourth generation, with reflexes 2022-02-11 22:17:00 Test Item Value Reference Range Interpretation Comments HIV NON-REACTIVE NON-REACTIVE HIV-1 antigen a nd antigen/ant HIV-1/HIV-2 ant ibodies ibody 4th were notdetecte d. There gen (test is no laborator y evidence code = of HIVinfection . PLEASE 01435-6) NOTE: This info rmation has been disclo [...] ad ditional information ple ase refer tohttp://educat ion.[employer]/ faq/PUX463 (This link is b eing provided for informational/e ducational purposes only.) The performance of this assay has not been clinicallyvalid ated in patients less t lagunas 2 years old. RAC (test Performing code = RAC) Organization Information: Site ID: RGA [facility] Address: [address] [place] [address] Director: Rajinder Grant [facility]HSV 1 and 2 specific Ab [id number] 22:17:00 Test Item Value Reference Interpretation Comments [...] ease refer to http://educatio n.Ques tDiagnostics.co m/faq/ AHP354 (This li nk is being provided for informational/e ducati onal purposes o nly.) RAC (test code = Performing RAC) Organization Information: Site ID: IG Name: [facility] Address: [address] [place] [address] Director: Dr. Rajinder Grant Lab Interpretation Abnormal (test code = 33434-9) [facility] [id number] 22:17:00 Test Item Value Reference Range Interpretation Comments Hepatitis B surface NON-REACTIVE NON-REACTIVE Ag (test code = 5196-1) RAC (test code = RAC) Performing Organization Information: Site ID: RGA [facility] Address: [address] [place] [address] Director: Rajinder Grant [facility]iscoRPR with reflex to [id number] 22:17:00 Test Item Value Reference Range Interpretation Comments RPR (test code = NON-REACTIVE NON-REACTIVE 79191-9) RAC (test code = Performing Organization RAC) Information: Site ID: RGA [facility] Address: [address] [place] [address] Director: Rajinder Grant [facility] C virus (HCV), quantitative [id number] 22:17:00 Test Item Value Reference Interpretation Comments Range HCV RNA, <15 NOT DETECTED NOT DETECTED quantitative PCR IU/mL (test code = 47721-7) HCV viral log <1.18 NOT DETECTED NOT DETECTED This bhupendra t was (test code = Log IU/mL performed using 96657-7) Real-Time Polym erase ChainReaction. Reportable Rang e: 15 IU/mL to 100,00 0,000 IU/mL(1.18 Log IU/mL to 8.00 Log IU/ mL). The analytical performance characteristics of thisassay have been determined by [employer]. Th e modifications h ave not been cleare d or approved bythe FDA. This assay has been validated pursu ant to the CLIA regulations and is used for clinic al purposes. For m ore information on this test, go to:http://susiea dylon. [employer] /faq/ZNP27w1(Th is link is being provided for informational/e ducat ional purposes only.) RAC (test code = Performing RAC) Organization Information: Site ID: IG [facility]: [facility] Address: [address] [place] [address] Director: Dr. Rajinder Grant [facility] C [id number] 22:17:00 Test Item Value Reference Interpretation Comments Range Hepatitis C Ab (test REACTIVE NON-REACTIVE A code = 78277-0) Signal/cutoff (test >11.00 <=1.00 H Based o n this code = 82564-7) result, the sample will be testedf or HCV RNA by a Nucleic Acid Amplification T est (NAAT)to determ ine if the patient has a current activeinfection . RAC (test code = Performing RAC) Organization Information: Site ID: RGA Name: [facility] Address: [address] [place] [address] Director: Rajinder Grant Lab Interpretation Abnormal (test code = 78985-7) [facility]V type 1/2 combined Ab, [id number] 22:17:00 Test Item Value Reference Interpretation Comments Range HSV 1 IgM NEGATIVE (test code = 83148-7) HSV 2 IgM NEGATIVE REFERENCE RANG E: NEGATIVE HSV (test IgM is detectab le in serum code = from >90% of [facility] 35503-2) primary HSV inf ection. However, HSV Ig [...] performancechar acteristics have been deter mined by [facility].It has not been cleared or appr luis by FDA. This assay hasb een validated pursuant to the CLIA regulations and isused for clinical purpos es. RAC (test Performing code = Organization RAC) Information: Site ID: EZ Name: [facility], Address: [address] [place] [address] Director: Crista Camacho MD,PhD,BARI [facility] CenterHIV 1/2 antigen/antibody, fourth generation, with reflexes 2022-02-11 22:17:00 Test Item Value Reference Range Interpretation Comments HIV NON-REACTIVE NON-REACTIVE HIV-1 antigen a nd antigen/ant HIV-1/HIV-2 ant ibodies ibody 4th were notdetecte d. There gen (test is no laborator y evidence code = of HIVinfection . PLEASE 47073-9) NOTE: This info rmation has been disclo [...] ad ditional information ple ase refer tohttp://educat ion.AlephD.[employer] Locate/ faq/ZGJ559 (This link is b eing provided for informational/e ducational purposes only.) The performance of this assay has not been clinicallyvalid ated in patients less t lagunas 2 years old. RAC (test Performing code = RAC) Organization Information: Site ID: RGA Name: [facility] [facility] Address: [address] [place] [address] Director: Rajinder Parker [facility]HS[facility] and 2 specific Ab [id number] 22:17:00 Test Item Value Reference Interpretation Comments [...] ease refer to http://educatio n.Ques tDiagnostics.co m/faq/ IHD108 (This li nk is being provided for informational/e ducati onal purposes o nly.) RAC (test code = Performing RAC) Organization Information: Site ID: IG Name: [facility] Address: [address] [place] [address] Director: Dr. Rajinder Grant Lab Interpretation Abnormal (test code = 76153-0) [facility] B surface [id number] 22:17:00 Test Item Value Reference Range Interpretation Comments Hepatitis B surface NON-REACTIVE NON-REACTIVE Ag (test code = 5196-1) RAC (test code = RAC) Performing Organization Information: Site ID: RGA [facility] Address: [address] [place] [address] Director: Rajinder Grant [facility] with reflex to [id number] 22:17:00 Test Item Value Reference Range Interpretation Comments RPR (test code = NON-REACTIVE NON-REACTIVE 11434-6) RAC (test code = Performing Organization RAC) Information: Site ID: RGA [facility] Address: [address] [place] [address] Director: Rajinder Grant [facility] C virus (HCV), quantitative [id number] 22:17:00 Test Item Value Reference Interpretation Comments Range HCV RNA, <15 NOT DETECTED NOT DETECTED quantitative PCR IU/mL (test code = 98252-0) HCV viral log <1.18 NOT DETECTED NOT DETECTED This bhupendra t was (test code = Log IU/mL performed using 73391-8) Real-Time Polym erase ChainReaction. Reportable Rang e: 15 IU/mL to 100,00 0,000 IU/mL(1.18 Log IU/mL to 8.00 Log IU/ mL). The analytical performance characteristics of thisassay have been determined by [employer]. Th e modifications h ave not been cleare d or approved bythe FDA. This assay has been validated pursu ant to the CLIA regulations and is used for clinic al purposes. For m ore information on this test, go to:http://educa tion. [employer] /faq/SXG54i6(Th is link is being provided for informational/e ducat ional purposes only.) RAC (test code = Performing RAC) Organization Information: Site ID: IG [facility] Address: [address] [place] [address] Director: Dr. Rajinder Grant [facility] [id number] 22:17:00 Test Item Value Reference Interpretation Comments Range Hepatitis C Ab (test REACTIVE NON-REACTIVE A code = 40440-2) Signal/cutoff (test >11.00 <=1.00 H Based o n this code = 83853-1) result, the sample will be testedf or HCV RNA by a Nucleic Acid Amplification T est (NAAT)to determ ine if the patient has a current activeinfection . RAC (test code = Performing RAC) Organization Information: Site ID: RGA Name: [facility] Address: [address] [place] [address] Director: Rajinder Grant Lab Interpretation Abnormal (test code = 79190-4) [facility] type 1/2 combined Ab, [id number] 22:17:00 Test Item Value Reference Interpretation Comments Range HSV 1 IgM NEGATIVE (test code = 46238-5) HSV 2 IgM NEGATIVE REFERENCE RANG E: NEGATIVE HSV (test IgM is detectab le in serum code = [facility] >90[facility] [address]-3) primary HSV inf ection. However, HSV Ig [...] performancechar acteristics have been deter mined by [facility].It has not been cleared or appr luis by FDA. This assay hasb een validated pursuant to the CLIA regulations and isused for clinical purpos es. RAC (test Performing code = Organization RAC) Information: Site ID: EZ Name: [facility], Address: [address] [place] [address] Director: Crista Camacho MD,PhD,BARI [facility]/2 antigen/antibody, fourth generation, with reflexes 2022-02-11 22:17:00 Test Item Value Reference Range Interpretation Comments HIV NON-REACTIVE NON-REACTIVE HIV-1 antigen a nd antigen/ant HIV-1/HIV-2 ant ibodies ibody 4th were notdetecte d. There gen (test is no laborator y evidence code = of HIVinfection . PLEASE 05777-6) NOTE: This info rmation has been disclo [...] ad ditional information ple ase refer tohttp://educat ion.[employer]/ faq/YHD024 (This link is b eing provided for informational/e ducational purposes only.) The performance of this assay has not been clinicallyvalid ated in patients less t lagunas 2 years old. RAC (test Performing code = RAC) Organization Information: Site ID: RGA [facility]: [facility] Address: [address] [place] [phone] Director: Rajinder Grant [facility] 1 and 2 specific Ab [id number] 22:17:00 Test Item Value Reference Interpretation Comments [...] ease refer to http://educatio n.Ques tDiagnostics.co m/faq/ NVL474 (This li nk is being provided for informational/e ducati onal purposes o nly.) RAC (test code = Performing RAC) Organization Information: Site ID: IG Name: [facility] Address: [address] [place] [phone] Director: Dr. Rajinder Grant Lab Interpretation Abnormal (test code = 78073-6) [facility] B surface [id number] 22:17:00 Test Item Value Reference Range Interpretation Comments Hepatitis B surface NON-REACTIVE NON-REACTIVE Ag (test code = 5196-1) RAC (test code = RAC) Performing Organization Information: Site ID: RGA [facility] Address: [address] [place] [address] Director: Rajinder Grant [facility]iscoRPR with reflex to [id number] 22:17:00 Test Item Value Reference Range Interpretation Comments RPR (test code = NON-REACTIVE NON-REACTIVE 35775-8) RAC (test code = Performing Organization RAC) Information: Site ID: KATERINA Name: [facility] Address: [address] [place] [address] Director: Rajinder Grant [facility] C virus (HCV), quantitative [id number] 22:17:00 Test Item Value Reference Interpretation Comments Range HCV RNA, <15 NOT DETECTED NOT DETECTED quantitative PCR IU/mL (test code = 92715-1) HCV viral log <1.18 NOT DETECTED NOT DETECTED This bhupendra t was (test code = Log IU/mL performed using 34034-0) Real-Time Polym erase ChainReaction. Reportable Rang e: 15 IU/mL to 100,00 0,000 IU/mL(1.18 Log IU/mL to 8.00 Log IU/ mL). The analytical performance characteristics of thisassay have been determined by [facility]. Th e modifications h ave not been cleare d or approved bythe FDA. This assay has been validated pursu ant to the CLIA regulations and is used for clinic al purposes. For m ore information on this test, go to:http://educa tion. [employer] /faq/YCC49x1(Th is link is being provided for informational/e ducat ional purposes only.) RAC (test code = Performing [facility]) Organization Information: Site ID: IG [facility]: [facility] Address: [address] [place] [address] Director: Dr. Rajinder Grant [facility] C [id number] 22:17:00 Test Item Value Reference Interpretation Comments Range Hepatitis C Ab (test REACTIVE NON-REACTIVE A code = 09420-2) Signal/cutoff (test >11.00 <=1.00 H Based o n this code = 56330-4) result, the sample will be testedf or HCV RNA by a Nucleic Acid Amplification T est (NAAT)to determ ine if the patient has a current activeinfection . RAC (test code = Performing [facility]) Organization Information: Site ID: RGA [facility] Address: [address] [place] [address] Director: Rajinder Grant Lab Interpretation Abnormal (test code = 79814-3) [facility] HospitalHS[facility]/2 combined Ab, [id number] 22:17:00 Test Item Value Reference Interpretation Comments Range HSV 1 IgM NEGATIVE (test code = 44780-4) HSV 2 IgM NEGATIVE REFERENCE RANG E: NEGATIVE HSV (test IgM is detectab le in serum code = from >90% of pa tracey 29445-5) primary HSV inf ection. However, HSV Ig [...] performancechar acteristics have been deter mined by [facility].It has not been cleared or appr luis by FDA. This assay hasb een validated pursuant to the CLIA regulations and isused for clinical purpos es. RAC (test Performing code = Organization RAC) Information: Site ID: EZ Name: [facility], Address: [address] [place] [address] Director: Crista Camacho MD,PhD,BARI [facility] 1/2 antigen/antibody, fourth generation, with reflexes 2022-02-11 22:17:00 Test Item Value Reference Range Interpretation Comments HIV NON-REACTIVE NON-REACTIVE HIV-1 antigen a nd antigen/ant HIV-1/HIV-2 ant ibodies ibody 4th were notdetecte d. There gen (test is no laborator y evidence code = of HIVinfection . PLEASE 35107-2) NOTE: This info rmation has been disclo [...] ad ditional information ple ase refer tohttp://educat ion.[employer]/ faq/IYT735 (This link is b eing provided for informational/e ducational purposes only.) The performance of this assay has not been clinicallyvalid ated in patients less t lagunas 2 years old. RAC (test Performing code = RAC) Organization Information: Site ID: RGA [facility] Address: [address] [place] [address] Director: Rajinder Grant [facility] 1 and 2 specific Ab [id number] 22:17:00 Test Item Value Reference Interpretation Comments [...] For additional information, pl ease refer to http://educatiguillermina nReza tDiagnostics.co m/faq/ BIX118 (This li nk is being provided for informational/e ducati onal purposes o nly.) RAC (test code = Performing RAC) Organization Information: Site ID: IG Name: [facility] Address: [address] [place] [address] Director: Dr. Rajinder Grant Lab Interpretation Abnormal (test code = 73102-0) [facility] surface [id number] 22:17:00 Test Item Value Reference Range Interpretation Comments Hepatitis B surface NON-REACTIVE NON-REACTIVE Ag (test code = 5196-1) RAC (test code = RAC) Performing Organization Information: Site ID: RGA [facility] Address: [address] [place] [phone] Director: Rajinder Grant [facility]RP with reflex to [id number] 22:17:00 Test Item Value Reference Range Interpretation Comments RPR (test code = NON-REACTIVE NON-REACTIVE 55423-7) RAC (test code = Performing Organization RAC) Information: Site ID: RGA [facility] Address: [address] [place] [phone] Director: Rajinder Grant [facility] C virus (HCV), quantitative [id number] 22:17:00 Test Item Value Reference Interpretation Comments Range HCV RNA, <15 NOT DETECTED NOT DETECTED quantitative PCR IU/mL (test code = 92319-4) HCV viral log <1.18 NOT DETECTED NOT DETECTED This bhupendra t was (test code = Log IU/mL performed using 72546-8) Real-Time Polym erase ChainReaction. Reportable Rang e: 15 IU/mL to 100,00 0,000 IU/mL(1.18 Log IU/mL to 8.00 Log IU/ mL). The analytical performance characteristics of thisassay have been determined by [employer]. Th e modifications h ave not been cleare d or approved bythe FDA. This assay has been validated pursu ant to the CLIA regulations and is used for clinic al purposes. For m ore information on this test, go to:http://educa tion. [employer] /faq/RFW64l4(Th is link is being provided for informational/e ducat ional purposes only.) RAC (test code = Performing RAC) Organization Information: Site ID: IG Name: [facility] Address: [address] [place] [address] Director: Dr. Rajinder Grant [facility] C [id number] 22:17:00 Test Item Value Reference Interpretation Comments Range Hepatitis C Ab (test REACTIVE NON-REACTIVE A code = 88613-0) Signal/cutoff (test >11.00 <=1.00 H Based o n this code = 99799-0) result, the sample will be testedf or HCV RNA by a Nucleic Acid Amplification T est (NAAT)to determ ine if the patient has a current activeinfection . RAC (test code = Performing RAC) Organization Information: Site ID: RGA Name: [facility] Address: [address] [place] [phone] Director: Rajinder Grant Lab Interpretation Abnormal (test code = 66531-7) [facility] 1/2 combined Ab, [id number] 22:17:00 Test Item Value Reference Interpretation Comments Range HSV 1 IgM NEGATIVE (test code = 86685-9) HSV 2 IgM NEGATIVE REFERENCE RANG E: NEGATIVE HSV (test IgM is detectab le in serum code = from >90% of [facility] [address]-2) primary HSV inf ection. However, HSV Ig [...] performancechar acteristics have been deter mined by [facility].It has not been cleared or appr luis by FDA. This assay hasb een validated pursuant to the CLIA regulations and isused for clinical purpos es. RAC (test Performing code = Organization RAC) Information: Site ID: EZ Name: [facility], Address: [address] [place] [address] Director: Crista Camacho MD,PhD,BARI [facility]HIV 1/2 antigen/antibody, fourth generation, with reflexes 2022-02-11 22:17:00 Test Item Value Reference Range Interpretation Comments HIV NON-REACTIVE NON-REACTIVE HIV-1 antigen a nd antigen/ant HIV-1/HIV-2 ant ibodies ibody 4th were notdetecte d. There gen (test is no laborator y evidence code = of HIVinfection . PLEASE 20183-8) NOTE: This info rmation has been disclo [...] ad ditional information ple ase refer tohttp://educat ion.[employer]/ faq/ERU783 (This link is b eing provided for informational/e ducational purposes only.) The performance of this assay has not been clinicallyvalid ated in patients less t lagunas 2 years old. RAC (test Performing code = RAC) Organization Information: Site ID: RGA [facility] Address: [address] [place] [address] Director: Rajinder Grant [facility] 1 and 2 specific Ab [id number] 22:17:00 Test Item Value Reference Interpretation Comments [...] ease refer to http://educatio n.Ques tDiagnostics.co m/faq/ KUZ600 (This li nk is being provided for informational/e ducati onal purposes o nly.) RAC (test code = Performing RAC) Organization Information: Site ID: IG Name: [facility] Address: [address] [place] [address] Director: Dr. Rajinder Grant Lab Interpretation Abnormal (test code = 95872-6) [facility] [id number] 15:02:28 Test Item Value Reference Range Interpretation Comments Case number (test code = [id number]) Surgical pathology See link below for report (test code = PDF Lab Report 2255) Result status (test code This is Final Report = [id number]) for [address] pathology [id number] 15:02:28 Test Item Value Reference Range Interpretation Comments Case number (test code = [id number]) Surgical pathology See link below for report (test code = PDF Lab Report 2255) Result status (test code This is Final Report = [id number]) [address] [id number] 15:02:28 Test Item Value Reference Range Interpretation Comments Case number (test code = [id number]) Surgical pathology See link below for report (test code = PDF Lab Report 2255) Result status (test code This is Final Report = [id number]) [address] [id number] 15:02:28 Test Item Value Reference Range Interpretation Comments Case number (test code = [id number]) Surgical pathology See link below for report (test code = PDF Lab Report 2255) Result status (test code This is Final Report = [id number]) [address] [id number] 15:02:28 Test Item Value Reference Range Interpretation Comments Case number (test code = [id number]) Surgical pathology See link below for report (test code = PDF Lab Report 2255) Result status (test code This is Final Report = [id number]) [address] [id number] 15:02:28 Test Item Value Reference Range Interpretation Comments Case number (test code = [id number]) Surgical pathology See link below for report (test code = PDF Lab Report 2255) Result status (test code This is Final Report = 7389325) for [address] pathology [id number] 15:02:28 Test Item Value Reference Range Interpretation Comments Case number (test code = [id number]) Surgical pathology See link below for report (test code = PDF Lab Report 2255) Result status (test code This is Final Report = [id number]) for [address] pathology [id number] 15:02:28 Test Item Value Reference Range Interpretation Comments Case number (test code = [id number]) Surgical pathology See link below for report (test code = PDF Lab Report 2255) Result status (test code This is Final Report = [id number]) for [address] pathology [id number] 15:02:28 Test Item Value Reference Range Interpretation Comments Case number (test code = [id number]) Surgical pathology See link below for report (test code = PDF Lab Report 2255) Result status (test code This is Final Report = 6317395) for [address] pathology [id number] 15:02:28 Test Item Value Reference Range Interpretation Comments Case number (test code = [id number]) Surgical pathology See link below for report (test code = PDF Lab Report 2255) Result status (test code This is Final Report = 9281887) for [address] pathology [id number] 15:02:28 Test Item Value Reference Range Interpretation Comments Case number (test code = [id number]) Surgical pathology See link below for report (test code = PDF Lab Report 2255) Result status (test code This is Final Report = [id number]) [address]OVID[address]19 qualitative [id number] 22:09:28 Test Item Value Reference Interpretation Comments Range Interpretation (test Negative results do not code = 9324704) preclude COVID-19 infection and should not be used asthe sole basis for treatment or other patient management decisions. Negativeresults must be combined with clinical observations, patient history, andepidemiological information. COVID-19 qualitative Not-Detected Not-Detected RT-PCR result (test code = 76112-1) COVID-19 qualitative See link below for PDF Case Number: RT-PCR (test code = Lab Report [id number] 7070) [facility] [id number] 22:09:28 Test Item Value Reference Interpretation Comments Range Interpretation (test Negative results do not code = 4983087) preclude COVID-19 infection and should not be used asthe sole basis for treatment or other patient management decisions. Negativeresults must be combined with clinical observations, patient history, andepidemiological information. COVID-19 qualitative Not-Detected Not-Detected RT-PCR result (test code = 83586-1) COVID-19 qualitative See link below for PDF Case Number: RT-PCR (test code = Lab Report [id number] 7070) [facility] qualitative [id number] 22:09:28 Test Item Value Reference Interpretation Comments Range Interpretation (test Negative results do not code = 0902222) preclude COVID-19 infection and should not be used asthe sole basis for treatment or other patient management decisions. Negativeresults must be combined with clinical observations, patient history, andepidemiological information. COVID-19 qualitative Not-Detected Not-Detected RT-PCR result (test code = 96416-3) COVID-19 qualitative See link below for PDF Case Number: RT-PCR (test code = Lab Report [id number] 7070) [facility] [id number] 22:09:28 Test Item Value Reference Interpretation Comments Range Interpretation (test Negative results do not code = 8515706) preclude COVID-19 infection and should not be used asthe sole basis for treatment or other patient management decisions. Negativeresults must be combined with clinical observations, patient history, andepidemiological information. COVID-19 qualitative Not-Detected Not-Detected RT-PCR result (test code = 33243-3) COVID-19 qualitative See link below for PDF Case Number: RT-PCR (test code = Lab Report [id number] 7070) [facility] [id number] 22:09:28 Test Item Value Reference Interpretation Comments Range Interpretation (test Negative results do not code = 4542145) preclude COVID-19 infection and should not be used asthe sole basis for treatment or other patient management decisions. Negativeresults must be combined with clinical observations, patient history, andepidemiological information. COVID-19 qualitative Not-Detected Not-Detected RT-PCR result (test code = 17402-3) COVID-19 qualitative See link below for PDF Case Number: RT-PCR (test code = Lab Report [id number] 7070) [facility] [id number] 22:09:28 Test Item Value Reference Interpretation Comments Range Interpretation (test Negative results do not code = 3175116) preclude COVID-19 infection and should not be used asthe sole basis for treatment or other patient management decisions. Negativeresults must be combined with clinical observations, patient history, andepidemiological information. COVID-19 qualitative Not-Detected Not-Detected RT-PCR result (test code = 76968-2) COVID-19 qualitative See link below for PDF Case Number: RT-PCR (test code = Lab Report [id number] 7070) [facility] [id number] 22:09:28 Test Item Value Reference Interpretation Comments Range Interpretation (test Negative results do not code = 3190475) preclude COVID-19 infection and should not be used asthe sole basis for treatment or other patient management decisions. Negativeresults must be combined with clinical observations, patient history, andepidemiological information. COVID-19 qualitative Not-Detected Not-Detected RT-PCR result (test code = 79760-3) COVID-19 qualitative See link below for PDF Case Number: RT-PCR (test code = Lab Report [id number] 7070) [facility] [id number] 22:09:28 Test Item Value Reference Interpretation Comments Range Interpretation (test Negative results do not code = 8319846) preclude COVID-19 infection and should not be used asthe sole basis for treatment or other patient management decisions. Negativeresults must be combined with clinical observations, patient history, andepidemiological information. COVID-19 qualitative Not-Detected Not-Detected RT-PCR result (test code = 86172-5) COVID-19 qualitative See link below for PDF Case Number: RT-PCR PDF (test Lab Report [id number] 1 code = 7070) [facility] [id number] 22:09:28 Test Item Value Reference Interpretation Comments Range Interpretation (test Negative results do not code = 5728926) preclude COVID-19 infection and should not be used asthe sole basis for treatment or other patient management decisions. Negativeresults must be combined with clinical observations, patient history, andepidemiological information. COVID-19 qualitative Not-Detected Not-Detected RT-PCR result (test code = 27442-0) COVID-19 qualitative See link below for PDF Case Number: RT-PCR PDF (test Lab Report [id number] 1 code = 7070) [facility] [id number] 22:09:28 Test Item Value Reference Interpretation Comments Range Interpretation (test Negative results do not code = 1677180) preclude COVID-19 infection and should not be used asthe sole basis for treatment or other patient management decisions. Negativeresults must be combined with clinical observations, patient history, andepidemiological information. COVID-19 qualitative Not-Detected Not-Detected RT-PCR result (test code = 07646-3) COVID-19 qualitative See link below for PDF Case Number: RT-PCR PDF (test Lab Report [id number] 1 code = 7070) [facility] [id number] 22:09:28 Test Item Value Reference Interpretation Comments Range Interpretation (test Negative results do not code = 5316098) preclude COVID-19 infection and should not be used asthe sole basis for treatment or other patient management decisions. Negativeresults must be combined with clinical observations, patient history, andepidemiological information. COVID-19 qualitative Not-Detected Not-Detected RT-PCR result (test code = 86178-4) COVID-19 qualitative See link below for PDF Case Number: RT-PCR PDF (test Lab Report [id number] 1 code = 7070) [facility]-CoV-2 (COVID-19) RNA [Presence] in Respiratory specimen by LATESHA with probe [id number] 17:09:28 Test Item Value Reference Range Interpretation Comments SARS-CoV-2 (COVID-19) RNA Not detected [Presence] in Respiratory specimen by LATESHA with probe detection (test code = 51245-5) Whether patient is employed in a Unknown healthcare setting (test code = 15069-7) Whether the patient has symptoms Unknown related to condition of interest (test code = 59485-6) Whether the patient was Unknown hospitalized for condition of interest (test code = 22550-1) Whether the patient was admitted Unknown to intensive care unit (ICU) for condition of interest (test code = 94272-2) Whether patient resides in a Unknown congregate care setting (test code = 15841-9) status (test code = Unknown 94198-8) Date and time of symptom onset Unknown (test code = 67133-0) [facility]INPREP TIS AND HPV mRNA [id number] 20:30:00 Test Item Value Reference Interpretation Comments Range Clinical information None gi niurka (test code = 72117-7) Date of last NONE GIVEN menstrual period (test code = 8665-2) Prev. pap: (test code NONE G IVEN = 46944-9) Prev. bx: (test code NONE GI NIURKA = 71255-3) Source (test code = None giv en ) Statement of adequacy Satisf actory for (test code = 25067-4) evalua tion.Endocervi cony/transformat ion zone componentpresen t.Age and/or menstrua l status not prov ided Interpretation/result Negati ve for : (test code = intraepitheli al 43863-9) lesion or malignancy. Comment (test code = This Pa p test has ) been evaluated with computerassiste d technology. [employer], [place] ( CP)CT (test code = 11925-2) screen ing location: [place] [address], [facility] 7[address] 2 Comment (test code = EXPLANA TORY NOTE: 9769161) The Pap is a screening test for [...] Detected Not Detected Methodo logy: code = 62311-1) Transcriptio n-Mediat ed Amplificatio n This assay [...] For additional information, pl ease refer tohttp://educat [employer]/ faq/TBF369b1(Th is link if provide d for information/edu catio nal purposes on ly.) JACEK (test code = RAC) Performing Organization Information: Site ID: IG Name: [facility] Address: [address] [place] [address] Director: Dr. Rajinder Grant Site ID: RGA Name: [facility] Address: [address] [place] [address] Director: Rajinder Grant [facility]IN[facility]IS AND HPV mRNA [id number] 20:30:00 Test Item Value Reference Interpretation Comments Range Clinical information None gi niurka (test code = 36342-6) Date of last NONE GIVEN menstrual period (test code = 8665-2) Prev. pap: (test code NONE G IVEN = 60456-5) Prev. bx: (test code NONE GI NIURKA = 45525-2) Source (test code = None giv en ) Statement of adequacy Satisf actory for (test code = 89031-2) evalua tion.Endocervi cony/transformat ion zone componentpresen t.Age and/or menstrua l status not prov ided Interpretation/result Negati ve for : (test code = intraepitheli al 92969-5) lesion or malignancy. Comment (test code = This Pa p test has ) been evaluated with computerassiste d technology. Sales And Training Specialist SYL DUTTON ( CP)CT (test code = 52122-4) screen ing location: [address], [place] [address] 2 Comment (test code = EXPLANA TORElliot NOTE: 3297447) The Pap is a screening test for [...] Detected Not Detected Methodo logy: code = 07941-3) Transcriptio n-Mediat ed Amplificatio n This assay [...] For additional information, pl ease refer tohttp://educat ion.[employer] .[employer]/ faq/WMA949g7(Th is link if provide d for information/edu catio nal purposes on ly.) RAC (test code = RAC) Performing Organization Information: Site ID: IG Name: [facility] Address: [address] [place] [address] Director: Dr. Rajinder Grant Site ID: RGA Name: [facility] Address: [address] [place] [address] Director: Rajinder Grant [facility]IN[facility] TIS AND HPV mRNA [id number] 20:30:00 Test Item Value Reference Interpretation Comments Range Clinical information None gi niurka (test code = 41462-6) Date of last NONE GIVEN menstrual period (test code = 8665-2) Prev. pap: (test code NONE G IVEN = 33106-3) Prev. bx: (test code NONE GI NIURKA = 79019-0) Source (test code = None giv en 02452-1) Statement of adequacy Satisf actory for (test code = 45979-2) evalua tion.Endocervi cony/transformat ion zone componentpresen t.Age and/or menstrua l status not prov ided Interpretation/result Negati ve for : (test code = intraepitheli al 78101-7) lesion or malignancy. Comment (test code = This Pa p test has ) been evaluated with Wor[employer]ize technology. Sales And Training Specialist SYL DUTTON ( CP)CT (test code = 72057-2) screen ing location: [place] [address] [address] [facility], [facility] 7[address] 2 Comment (test code = EXPLANA TORY NOTE: 3127080) The Pap is a screening test for [...] Detected Not Detected Methodo logy: code = 19552-6) Transcriptio n-Mediat ed Amplificatio n This assay [...] For additional information, pl ease refer tohttp://educat ion.[employer]/ faq/QNA982n7(Th is link if provide d for information/edu catio nal purposes on ly.) JACEK (test code = JACEK) Performing Organization Information: Site ID: IG Name: [facility] Address: [address] [place] [address] Director: Dr. Rajinder Grant Site ID: RGA Name: [facility] Address: [address] [place] [address] Director: Rajinder Grant [facility] CenterTHINPREP TIS AND HPV mRNA [id number] 20:30:00 Test Item Value Reference Interpretation Comments Range Clinical information None gi niurka (test code = 60366-8) Date of last NONE GIVEN menstrual period (test code = 8665-2) Prev. pap: (test code NONE G IVEN = 44100-1) Prev. bx: (test code NONE GI NIURKA = 94234-6) Source (test code = None [place] 35944-3) Statement of adequacy Satisf actory for (test code = 42318-1) evalua tion.Endocervi cony/transformat ion zone componentpresen t.Age and/or menstrua l status not prov ided Interpretation/result Negati ve for : (test code = intraepitheli al 22596-8) lesion or malignancy. Comment (test code = This Pa p test has ) been evaluated with computerassiste d technology. Sales And Training Specialist SYL DUTTON ( CP)CT (test code = 35206-0) screen ing location: [address], [place] [address] Comment (test code = EXPLANA TORY NOTE: [id number]) The Pap is a screening test for [...] Detected Not Detected Methodo logy: code = 87790-0) Transcriptio n-Mediat ed Amplificatio n This assay [...] For additional information, pl ease refer tohttp://educat ion.[employer]/ faq/KUJ499i3(Th is link if provide d for information/edu catio nal purposes on ly.) RAC (test code = RAC) Performing Organization Information: Site ID: IG Name: [facility] Address: [address] [place] [address] Director: Dr. Rajidner Grant Site ID: RGA Name: [facility] Address: [address] [place] [address] Director: Rajinder Grant [facility]IN[facility] TIS AND HPV mRNA [id number] 20:30:00 Test Item Value Reference Interpretation Comments Range Clinical information None gi niurka (test code = 53068-0) Date of last NONE GIVEN menstrual period (test code = 8665-2) Prev. pap: (test code NONE G IVEN = 61531-4) Prev. bx: (test code NONE GI NIURKA = 04776-2) Source (test code = None giv en 08129-6) Statement of adequacy Satisf actory for (test code = 83176-1) evalua tion.Endocervi cony/transformat ion zone componentpresen t.Age and/or menstrua l status not prov ided Interpretation/result Negati ve for : (test code = intraepitheli al 08179-2) lesion or malignancy. Comment (test code = [place] [address]-4) been evaluated with computerassiste d technology. Sales And Training Specialist [place], [place] ( CP)CT (test code = 26905-0) screen ing location: [facility] [address] [place] [address], [place] [address] 2 Comment (test code = EXPLANA TORY NOTE: 6843143) The Pap is a screening test for [...] Detected Not Detected Methodo logy: code = 53250-7) Transcriptio n-Mediat ed Amplificatio n This assay [...] For additional information, pl ease refer tohttp://educat ion.[employer]/ faq/ORO081h6(Th is link if provide d for information/[facility] catio nal purposes on ly.) RAC (test code = RAC) Performing Organization Information: Site ID: IG Name: [facility] Address: [address] [place] [address] Director: Dr. Rajinder Grant Site ID: RGA Name: [facility] Address: [address] [place] [address] Director: Rajinder Grant [facility]INPREP TIS AND HPV mRNA [id number] 20:30:00 Test Item Value Reference Interpretation Comments Range Clinical information None gi niurka (test code = 01454-9) Date of last NONE GIVEN menstrual period (test code = 8665-2) Prev. pap: (test code NONE G IVEN = 40846-5) Prev. bx: (test code NONE GI NIURKA = 65011-5) Source (test code = None giv en ) Statement of adequacy Satisf actory for (test code = 86837-3) evalua tion.Endocervi cony/transformat ion zone componentpresen t.Age and/or menstrua l status not prov ided Interpretation/result Negati ve for : (test code = intraepitheli al 30258-5) lesion or malignancy. Comment (test code = This Pa p test has ) been evaluated with computerassiste d technology. Sales And Training Specialist SYL DUTTON ( CP)CT (test code = 94648-4) screen ing location: [address], [place] [address] 2 Comment (test code = MARYURIA NONA NOTE: 4430617) The Pap is a screening test for [...] Detected Not Detected Methodo logy: code = 02837-8) Transcriptio n-Mediat ed Amplificatio n This assay [...] For additional information, pl ease refer tohttp://educat ion.[employer] .[employer] Locate/ faq/FRX201n4(Th is link if provide d for information/[facility] catio nal purposes on ly.) RAC (test code = RAC) Performing Organization Information: Site ID: IG Name: [facility] Address: [address] [place] [address] Director: Dr. Rajinder Grant Site ID: RGA Name: [facility] Address: [address] [place] [address] Director: Rajinder Grant [facility]THINPREP TIS AND HPV mRNA [id number] 20:30:00 Test Item Value Reference Interpretation Comments Range Clinical information None gi niurka (test code = 21548-9) Date of last NONE GIVEN menstrual period (test code = 8665-2) Prev. pap: (test code NONE G IVEN = 67556-5) Prev. bx: (test code NONE GI NIURKA = 65955-1) Source (test code = None giv en ) Statement of adequacy Satisf actory for (test code = 03649-0) evalua tion.Endocervi cony/transformat ion zone componentpresen t.Age and/or menstrua l status not prov ided Interpretation/result Negati ve for : (test code = intraepitheli al 95542-1) lesion or malignancy. Comment (test code = This Pa p test has ) been evaluated with Jirafeiste d technology. Sales And Training Specialist [place], [place] ( CP)CT (test code = 58680-9) screen ing location: [place] [address] [address] [facility], [facility] [address] 2 Comment (test code = EXPLANA TORY NOTE: 1074716) The Pap is a screening test for [...] Detected Not Detected Methodo logy: code = 49384-1) Transcriptio n-Mediat ed Amplificatio n This assay [...] For additional information, pl ease refer tohttp://educat ion.[employer]/ faq/AFN274w7(Th is link if provide d for information/edu catio nal purposes on ly.) JACEK (test code = JACEK) Performing Organization Information: Site ID: IG Name: [facility] Address: [address] [place] [address] Director: Dr. Rajinder Grant Site ID: RGA Name: [facility] Address: [address] [place] [address] Director: Rajinder Grant [facility]INPREP TIS AND HPV mRNA [id number] 20:30:00 Test Item Value Reference Interpretation Comments Range Clinical information None gi niurka (test code = 93160-7) Date of last NONE GIVEN menstrual period (test code = 8665-2) Prev. pap: (test code NONE G IVEN = 92891-6) Prev. bx: (test code NONE GI NIURKA = 35473-5) Source (test code = [place] 66997-6) Statement of adequacy Satisf actory for (test code = 68820-6) evalua tion.Endocervi cony/transformat ion zone componentpresen t.Age and/or menstrua l status not prov ided Interpretation/result Negati ve for : (test code = intraepitheli al 86056-3) lesion or malignancy. Comment (test code = This Pa p test has ) been evaluated with computerassiste d technology. Sales And Training Specialist SYL DUTTON ( CP)CT (test code = 86013-3) screen ing location: [address], [place] [address] Comment (test code = EXPLANA TORY NOTE: 1311162) The Pap is a screening test for [...] Detected Not Detected Methodo logy: code = 27061-0) Transcriptio n-Mediat ed Amplificatio n This assay [...] For additional information, pl ease refer tohttp://educat ion.[employer]/ faq/GYN091z2(Th is link if provide d for information/edu catio nal purposes on ly.) RAC (test code = RAC) Performing Organization Information: Site ID: IG Name: [facility] Address: [address] [place] [address] Director: Dr. Rajinder Grant Site ID: RGA Name: [facility] Address: [address] [place] [address] Director: Rajinder Grant [facility]INPRE[facility] TIS AND HPV mRNA [id number] 20:30:00 Test Item Value Reference Interpretation Comments Range Clinical information None gi niurka (test code = 93260-9) Date of last NONE GIVEN menstrual period (test code = 8665-2) Prev. pap: (test code NONE G IVEN = 28028-5) Prev. bx: (test code NONE GI NIURKA = 00602-0) Source (test code = None giv en 55690-6) Statement of adequacy Satisf actory for (test code = 36158-4) evalua tion.Endocervi cony/transformat ion zone componentpresen t.Age and/or menstrua l status not prov ided Interpretation/result Negati ve for : (test code = intraepitheli al 54678-8) lesion or malignancy. Comment (test code = [place] [address]874-4) been evaluated with computerassiste d technology. Sales And Training Specialist [place], [place] ( CP)CT (test code = 52026-2) screen ing location: [facility] [address] [place] [address], [place] [address] 2 Comment (test code = EXPLANA TORY NOTE: 4549695) The Pap is a screening test for [...] Detected Not Detected Methodo logy: code = 27129-8) Transcriptio n-Mediat ed Amplificatio n This assay [...] For additional information, pl ease refer tohttp://educat ionSeatMe/ faq/JPB909m0(Th is link if provide d for information/edu catio nal purposes on ly.) JACEK (test code = RAC) Performing Organization Information: Site ID: IG Name: [facility] Address: [address] [place] [address] Director: Dr. Rajinder Grant Site ID: RGA Name: [facility] Address: [address] [place] [address] Director: Rajinder Grant [facility]THINPREP TIS AND HPV mRNA [id number] 20:30:00 Test Item Value Reference Interpretation Comments Range Clinical information None gi niurka (test code = 39261-1) Date of last NONE GIVEN menstrual period (test code = 8665-2) Prev. pap: (test code NONE G IVEN = 39475-4) Prev. bx: (test code NONE GI NIURKA = 89467-1) Source (test code = None giv en ) Statement of adequacy Satisf actory for (test code = 50989-9) evalua tion.Endocervi cony/transformat ion zone componentpresen t.Age and/or menstrua l status not prov ided Interpretation/result Negati ve for : (test code = intraepitheli al 78978-6) lesion or malignancy. Comment (test code = This Pa p test has ) been evaluated with Jirafeiste d technology. Sales And Training Specialist [place] ( CP)CT (test code = 97944-0) screen ing location: [address], [place] [address] 2 Comment (test code = EXPLANA NONA NOTE: 5211523) The Pap is a screening test for [...] Detected Not Detected Methodo logy: code = 39787-2) Transcriptio n-Mediat ed Amplificatio n This assay [...] For additional information, pl ease refer tohttp://educat ion.[employer] .[employer] Locate/ faq/VRQ778p0(Th is link if provide d for information/edu catio nal purposes on ly.) RAC (test code = RAC) Performing Organization Information: Site ID: IG Name: [facility] Address: [address] [place] [address] Director: Dr. Rajinder Grant Site ID: RGA Name: [facility] Address: [address] [place] [address] Director: Rajinder Grant [facility]INPREP TIS AND HPV mRNA [id number] 20:30:00 Test Item Value Reference Interpretation Comments Range Clinical information None gi niurka (test code = 31926-6) Date of last NONE GIVEN menstrual period (test code = 8665-2) Prev. pap: (test code NONE G IVEN = 88175-3) Prev. bx: (test code NONE GI NIURKA = 05708-1) Source (test code = None giv en ) Statement of adequacy Satisf actory for (test code = 68790-7) evalua tion.Endocervi cony/transformat ion zone componentpresen t.Age and/or menstrua l status not prov ided Interpretation/result Negati ve for : (test code = intraepitheli al 59147-5) lesion or malignancy. Comment (test code = This Pa p test has ) been evaluated with Worlize technology. Sales And Training Specialist [place], [place] ( CP)CT (test code = 67408-3) screen ing location: [place] [address] [address] [facility], [facility] [address] 2 Comment (test code = EXPLANA TORY NOTE: 3160427) The Pap is a screening test for [...] Detected Not Detected Methodo logy: code = 50937-3) Transcriptio n-Mediat ed Amplificatio n This assay [...] For additional information, pl ease refer tohttp://educat ion.[employer]/ faq/AMQ915m8(Th is link if provide d for information/edu catio nal purposes on ly.) JAECK (test code = JACEK) Performing Organization Information: Site ID: IG Name: [facility] Address: [address] [place] [address] Director: Dr. Rajinder Grant Site ID: RGA Name: [facility] Address: [address] [place] [address] Director: Rajinder Grant [address]2022-09-01 18:14:37 Test Item Value Reference Range Interpretation Comments Ventricular rate (test code = 253) Atrial rate (test code = 255) MN interval (test code = 266) QRSD interval [...] of 07-NOV-2021 12:57,-No significant change was found- [address]2022-09-01 18:14:37 Test Item Value Reference Range Interpretation Comments Ventricular rate (test code = 253) Atrial rate (test code = 255) MN interval (test code = 266) QRSD interval [...] of 07-NOV-2021 12:57,-No significant change was found- [address]2022-09-01 18:14:37 Test Item Value Reference Range Interpretation Comments Ventricular rate (test code = 253) Atrial rate (test code = 255) MN interval (test code = 266) QRSD interval [...] of 07-NOV-2021 12:57,-No significant change was found- [facility] RNA [Presence] in Respiratory specimen by LATESHA with probe [id number] 21:57:49 Test Item Value Reference Range Interpretation Comments SARS-CoV-2 (COVID-19) RNA [Presence] Detected in Respiratory specimen by LATESHA with probe detection (test code = 93065-1) Whether patient is employed in a Unknown healthcare setting (test code = 55103-1) Whether the patient has symptoms Unknown related to condition of interest (test code = 28613-4) Whether the patient was hospitalized Unknown for condition of interest (test code = 60364-5) Whether the patient was admitted to Unknown intensive care unit (ICU) for condition of interest (test code = 67837-0) Whether patient resides in a Unknown congregate care setting (test code = 04263-7) status (test code = Unknown 76797-4) Date and time of symptom onset (test Unknown code = 85932-5) [facility]ENHepatic function [id number] 18:40:00 Test Item Value Reference Range Interpretation Comments Protein (test code 6.6 g/dL 6.1-8.1 = 2885-2) Albumin, S (test 4.1 g/dL 3.6-5.1 code = 1751-7) Globulin, total See_Comment [Automated (test code = message] The 05643-2) system which generated this result transmitted reference range : 1.9 - 3.7 g/dL (calc). The reference range was not used to interpret this result as normal/abnormal . Albumin/globulin See_Comment [Automated ratio (test code = message] The 25340) system which generated this result transmitted reference [...] RAC) Organization Information: Site ID: RGA [facility] Address: [address] [place] [address] Director: [facility] [id number] 18:40:00 Test Item Value Reference Range Interpretation [...] RAC) Organization Information: Site ID: RGA [facility] Address: [address] [place] [address] Director: Rajinder Grant [facility] function [id number] 18:40:00 Test Item Value Reference Range Interpretation [...] 6768-6) AST (test code = 13 U/L 10-1919-8) ALT (test code = 14 U/L 10-082-6) WILDA (test code = FASTING: UNKNOWN WILDA) RAC (test code = Performing RAC) Organization Information: Site ID: KATERINA Name: [facility] Address: [address] [place] [address] Director: Rajinder Grant [facility] function [id number] 18:40:00 Test Item Value Reference Range Interpretation [...] 6768-6) AST (test code = 13 U/L 35 1919-8) ALT (test code = 14 U/L 10-08-6) WILDA (test code = FASTING: UNKNOWN WILDA) RAC (test code = Performing RAC) Organization Information: Site ID: BEBA Name: [facility] Address: [address] [place] [address] Director: Rajinder Grant [facility] function [id number] 18:40:00 Test Item Value Reference Range Interpretation Comments Protein (test code 6.6 g/dL 6.1-8.1 = 2885-2) Albumin, S (test 4.1 g/dL 3.6-5.1 code = 1750-7) Globulin, total See_Comment [Automated (test code = [...] RAC) Organization Information: Site ID: BEBA Name: [facility] Address: [address] [place] [address] Director: Rajinder KiddMission Trail Baptist HospitalHepatic function [id number] 18:40:00 Test Item Value Reference Range Interpretation [...] RAC) Organization Information: Site ID: RGA [facility] Address: [address] [place] [address] Director: Rajinder LamarGlenbeigh HospitalHepatic function [id number] 18:40:00 Test Item Value Reference Range Interpretation [...] RAC) Organization Information: Site ID: RGA [facility] Address: [address] [place] [address] Director: Rajinder Grant [facility] function [id number] 18:40:00 Test Item Value Reference Range Interpretation [...] 1920-8) ALT (test code = 14 U/L -29 1742-6) WILDA (test code = FASTING: UNKNOWN WILDA) RAC (test code = Performing RAC) Organization Information: Site ID: RGA [facility] Address: [address] [place] [address] Director: Rajinder Grant [facility] function [id number] 18:40:00 Test Item Value Reference Range Interpretation [...] 1742-6) WILDA (test code = FASTING: UNKNOWN IWLDA) RAC (test code = Performing RAC) Organization Information: Site ID: RGA [facility] Address: [address] [place] [address] Director: [place] Girma MedinaDeerfieldMercer County Community HospitalHepatic function [id number] 18:40:00 Test Item Value Reference Range Interpretation [...] RAC) Organization Information: Site ID: RGA [facility] Address: [address] [place] [address] Director: Rajinder LamarGlenbeigh HospitalHepatic function [id number] 18:40:00 Test Item Value Reference Range Interpretation [...] = Performing RAC) Organization Information: Site ID: [facility] Name: [facility] Address: [address] [place] [address] Director: Rajinder Grant Judaism WaxyjsqdZEIH-AiO-1 (COVID-19) RNA [Presence] in Respiratory specimen by LATESHA with probe [id number] 20:46:09 Test Item Value Reference Range Interpretation Comments SARS-CoV-2 (COVID-19) RNA Not detected [Presence] in Respiratory specimen by LATESHA with probe detection (test code = 38027-0) Whether patient is employed in a Unknown healthcare setting (test code = 64842-1) Whether the patient has symptoms Unknown related to condition of interest (test code = 23266-9) Whether the patient was Unknown hospitalized for condition of interest (test code = 86676-5) Whether the patient was admitted Unknown to intensive care unit (ICU) for condition of interest (test code = 32086-7) Whether patient resides in a Unknown congregate care setting (test code = 14172-4) status (test code = Unknown 60365-9) Date and time of symptom onset Unknown (test code = 97390-7) [facility] HospitalThy[facility] stimulating [id number] 05:23:00 Test Item Value Reference Range Interpretation Comments TSH (test code mIU/L Reference Ra nge > = 3016-3) or = 20 Years 0.40-4.50 Range s First trimester 0.26-2.66 Secon d trimester 0.55-2.73 Third trimester 0.43-2.91 RAC (test code Performing = RAC) Organization Information: Site ID: RGA [facility] Address: [address] [place] [address] Director: Rajinder KiddMission Trail Baptist HospitalThyroid stimulating [id number] 05:23:00 Test Item Value Reference Range Interpretation Comments TSH (test code mIU/L Reference Ra nge > = 3016-3) or = 20 Years 0.40-4.50 Range s First trimester 0.26-2.66 Secon d trimester 0.55-2.73 Third trimester 0.43-2.91 RAC (test code Performing = RAC) Organization Information: Site ID: RGA [facility] Address: [address] [place] [address] Director: Rajinder LamarAultman Alliance Community Hospitalroid [facility]2022-06-11 05:23:00 Test Item Value Reference Range Interpretation Comments TSH (test code mIU/L Reference Ra nge > = 3016-3) or = 20 Years 0.40-4.50 Range s First trimester 0.26-2.66 Secon d trimester 0.55-2.73 Third trimester 0.43-2.91 RAC (test code Performing = RAC) Organization Information: Site ID: RGA Name: [facility] Address: [address] [place] [address] [facility] 05:23:00 Test Item Value Reference Range Interpretation Comments TSH (test code mIU/L Reference Ra nge > = 3016-3) or = 20 Years 0.40-4.50 Range s First trimester 0.26-2.66 Secon d trimester 0.55-2.73 Third trimester 0.43-2.91 RAC (test code Performing = RAC) Organization Information: Site ID: RGA Name: [facility] Address: [address] [place] [address] Director: [facility] [id number] 05:23:00 Test Item Value Reference Range Interpretation Comments TSH (test code mIU/L Reference Ra nge > = 3016-3) or = 20 Years 0.40-4.50 Range s First trimester 0.26-2.66 Secon d trimester 0.55-2.73 Third trimester 0.43-2.91 RAC (test code Performing = RAC) Organization Information: Site ID: RGA Name: [facility] Address: [address] [place], [place] [address] Director: [facility] Grant [facility] [id number] 05:23:00 Test Item Value Reference Range Interpretation Comments TSH (test code mIU/L Reference R paris = 3016-3) > or = 20 Years 0.40-4.50 Range s First trimester 0.26-2.66 Secon d trimester 0.55-2.73 Thir d trimester 0.43-2.91 RAC (test code Performing = RAC) Organization Information: Site ID: RGA Name: [facility] Address: [address] [place], [place] [address] Director: Rajinder Grant [facility] [id number] 05:23:00 Test Item Value Reference Range Interpretation Comments TSH (test code 1.97 mIU/L Reference R paris = 3016-3) > or = 20 Years 0.40-4.50 Range s First trimester 0.26-2.66 Secon d trimester 0.55-2.73 Thir d trimester 0.43-2.91 RAC (test code Performing = RAC) Organization Information: Site ID: A Name: [facility] Address: [address] [place] [address] Director: [facility]2022-06-11 05:23:00 Test Item Value Reference Range Interpretation Comments TSH (test code 1.97 mIU/L Reference R paris = 3016-3) > or = 20 Years 0.40-4.50 Range s First trimester 0.26-2.66 Secon d trimester 0.55-2.73 Thir d trimester 0.43-2.91 RAC (test code Performing = RAC) Organization Information: Site ID: A Name: [facility] Address: [address] [place] [address] Director: [facility]2022-06-11 05:23:00 Test Item Value Reference Range Interpretation Comments TSH (test code 1.97 mIU/L Reference R paris = 3016-3) > or = 20 Years 0.40-4.50 Range s First trimester 0.26-2.66 Secon d trimester 0.55-2.73 Thir d trimester 0.43-2.91 RAC (test code Performing = RAC) Organization Information: Site ID: BEBA Name: [facility] Address: [address] [place] [address] Director: [facility] [id number] 05:23:00 Test Item Value Reference Range Interpretation Comments TSH (test code 1.97 mIU/L Reference R paris = 3016-3) > or = 20 Years 0.40-4.50 Range s First trimester 0.26-2.66 Secon d trimester 0.55-2.73 Thir d trimester 0.43-2.91 RAC (test code Performing = RAC) Organization Information: Site ID: BEBA Name: [facility] Address: [address] [place] [address] Director: [facility] CampusUA RFLX MICR CULT IF [id number] 18:48:00 Test Item Value Reference Range Interpretation [...] LACT) 0.7 mmol/L 0.7-2.0 N LIVER FUNCTION [id number] 15:14:00 Test Item Value Reference Range Interpretation [...] U/L 38-126 N (test code = ALKP) [id number] 15:14:00 Test Item Value Reference Range Interpretation [...] ~~~~~~~~~~~~ ~~~~~~~~~~~~~~~ ~~~~~~~~~~~~ ~~~~~~~~~~~~~~~ ~ BASIC METABOLIC [id number] 15:14:00 Test Item Value Reference Range Interpretation [...] mi ssing the Laboratory cannot compute an rbandon mation of the glomerul ar filtration rate . CREATININE (test 0.6 mg/dL 0.5-1.0 N code = CREAT) CALCIUM (test code 9.1 mg/dL 8.4-10.2 N = CA) INDEX HEMOLYSIS < 15 Index/DL 0-100 N (test code = HEMINDEX) - CT ABD PELVIS W/O [id number] 14:53:00 [facility] : 1970 Sex: F FAX: Debo Gutierrez [place]: St: REG Name: HERSON JACKSON [facility] : 1970 Age/S: 51/F [address] Unit: [id number] Loc: [place] [address] Phys: Debo Gutierrez Acct: [id number] Dis Date: Status: REG ER PHONE #: [phone] Exam Date: 08/08/2021 1435 FAX #: [phone] Reason: flank pain EXAMS: CPT CODE: [id number] CT ABD PELVIS W/O CONT 49056 EXAM: CT abdomen and pelvis without contrast [...] mid to lower aspect compatible with PAGE 1Signed Report (CONTINUED) FAX: Debo Gutierrez [place]: St: REG Name: HERSON JACKSON [facility] : 1970 Age/S: 51/F [address] Unit: [id number] Loc: [place] [address] Phys: Debo Gutierrez Acct: [id number] Dis Date: Status: REG ER PHONE #: [phone] Exam Date: 08/08/2021 1435 FAX #: [phone] Reason: flank pain EXAMS: CPT CODE: [id number] CT ABD PELVIS W/O CONT 80346 (Continued)nephrolithiasis . Evaluation of the bladder is limited, [...] suggest pelvic inflammatory disease. RECOMMENDATIONS: None. Internal Codingonly:B3 at 1075 Reported and signed by: Sandro Molina MD PAGE 2 Signed Report (CONTINUED) FAX: Debo Gutierrez [place]: St: REG Name: HERSON JACKSON [facility] : 1970 Age/S: 51/F [address] Unit: [id number] Loc: [place] [address] Phys: Debo Gutierrez Acct: [id number] Dis Date: Status: REG ER PHONE #: [phone] Exam Date: 2 1435 FAX #: [phone] Reason: flank pain EXAMS: CPT CODE: [id number] CT ABD PELVIS W/O CONT 17498 (Continued) CC: Debo Gutierrez Technologist: Debo Ortiz; SCOTT BENAVIDES Trntnagnieszka Dt/Tm: 08/08/2021 (3209) NateHPD Orig Print D/T: S: 08/08/2021 (1456 PAGE 3 Signed ReportCBC W/AUTO [id number] 14:21:00 Test Item Value Reference Range Interpretation [...] 3/uL 0.0-0.1 N - XR CHEST 1 [id number] 13:50:00 [facility] : 1970 Sex: F FAX: Debo Gutierrez [place]: St: PRE Name: HERSON JACKSON [facility] : 1970 Age/S: 51/F [address] Unit #: [id number] Loc: [place] [address] Phys: Debo Gutierrez Acct: [id number] Dis Date: Status: PRE ER PHONE #: [phone] Exam Date: 08/08/2021 1340 FAX #: [phone] Reason: CODE SEPSIS EXAMS: CPT CODE: [id number] XR CHEST 1 V 30463 CHEST 1 VIEW: INDICATION: CODE SEPSIS COMPARISON: [...] Debo Gutierrez Technologist: NAY GILLIS; STUDENT 2ND YEARRuthann Date/Time/By: 08/08/2021 (5834) : By: [email or web address] PAGE 1 Signed Report FAX: Debo Gutierrez [place]: St: PRE -- Name: HERSON JACKSON [facility] : 1970 Age/S: 51/F [address] Unit #: [id number] Loc: [place] [address] Phys: Debo Gutierrez Acct: [id number] Dis Date: Status: PRE ER PHONE #: [phone] Exam Date: 08/08/2021 1340 FAX #: [phone] Reason: CODE SEPSIS EXAMS: CPT CODE: [id number] XR CHEST 1 V 25489 (Continued) Orig Print D/T: S: 08/08/2021 (3201) PAGE 2 Signed ReportTHINPREP TIS PAP AND HPV mRNA E6/E7 REFLEX HPV 16,18/45 2021-06-19 18:43:00 Test Item Value Reference Interpretation Comments Range Clinical information None gi niurka (test code = 81081-0) Date of last NONE GIVEN menstrual period (test code = 8665-2) Prev. pap: (test code NONE G IVEN = 11741-6) Prev. bx: (test code NONE GI NIURKA = 40910-2) Source (test code = None giv [place] 54025-5) Statement of adequacy Satisf actory for (test code = 65273-8) evalua tion.Endocervi cony/transformat ion zone componentpresen t.Age and/or menstrua l status not prov ided Interpretation/result Negati ve for : (test code = intraepitheli al 87589-9) lesion or malignancy. Comment (test code = This Pa p test has ) been evaluated with computerassiste d technology. Review PMT, CT(ASCP)CT bicycle courier screening l ocation: (test code = 16035-5) [facility] [address], [place] [address] 2 Comment (test code = EXPLANA TORElliot NOTE: 7912646) The Pap is a screening test for cervical cancer . It is not a diagno stic test and is sub ject to false negati ve and false posit cole results. It is most reliable when a satisfactory sa mple, regularly obtai kday, is submitted wi relevant clinic al findings and history, and wh en the Pap result is evaluated along with historic and cu rrent clinical information. HPV mRNA e6/e7 (test Not Detected Not Detected Methodo logy: code = 03556-4) Transcriptio n-Mediat ed Amplificatio n This assay dete cts E6/E7 viral messenger RNA ( mRNA) from 14high-ris k HPV types (16,18,31,33,35 ,39,4 5,51,52,56,58,5 9,66, 68). The analyt ical performance characteristics of thisassay have been determined by [employer].The modifications h ave not been cleare d or approvedby the FDA. This assay has been validated pursu antto the CLIA regula tions and is used forclinical purposes. For additional information, pl ease refer tohttp://educat ion.SpiritShop.coms .Global Locate/ faq/QOU377s4(Th is link if provide d for information/edu catio nal purposes on ly.) JACEK (test code = RAC) Performing Organization Information: Site ID: IG Name: [facility] Address: [address] [place] [address] Director: Dr. Rajinder Grant Site ID: RGA Name: [facility] Address: [address] [place] [address] Director: Rajinder Grant [facility] AND HPV mRNA E6/E7 REFLEX HPV 16,18/45 2021-06-19 18:43:00 Test Item Value Reference Interpretation Comments Range Clinical information None gi niurka (test code = 08504-4) Date of last NONE GIVEN menstrual period (test code = 8665-2) Prev. pap: (test code NONE G IVEN = 56002-5) Prev. bx: (test code NONE GI NIURKA = 84668-6) Source (test code = None giv en ) Statement of adequacy Satisf actory for (test code = 19889-1) evalua tion.Endocervi cony/transformat ion zone componentpresen t.Age and/or menstrua l status not prov ided Interpretation/result Negati ve for : (test code = intraepitheli al 82371-2) lesion or malignancy. Comment (test code = This Pa p test has ) been evaluated with computerassiste d technology. Review PMT, CT(ASCP)CT bicycle courier screening l ocation: (test code = 65888-1) [facility] [address], [facility] [address] Comment (test code = EXPLANA TORY NOTE: 3886413) The Pap is a screening test for [...] Detected Not Detected Methodo logy: code = 09050-1) Transcriptio n-Mediat ed Amplificatio n This assay dete cts E6/E7 viral messenger RNA ( mRNA) from 14high-ris k HPV types (16,18,31,33,35 ,39,4 5,51,52,56,58,5 9,66, 68). The analyt ical performance characteristics of thisassay have been determined by [employer].The modifications h ave not been cleare d or approvedby the FDA. This assay has been validated pursu antto the CLIA regula tions and is used forclinical purposes. For additional information, pl ease refer tohttp://educat ion.q Victor[employer] .Global Locate/ faq/LRQ239m5(Th is link if provide d for information/edu catio nal purposes on ly.) RAC (test code = RAC) Performing Organization Information: Site ID: IG Name: [facility] Address: [address] [place] [address] Director: Dr. Rajinder Grant Site ID: RGA Name: [facility] Address: [address] [place] [address] Director: Rajinder Grant [facility] PAP AND HPV mRNA E6/E7 REFLEX HPV 16,18/45 2021-06-19 18:43:00 Test Item Value Reference Interpretation Comments Range Clinical information None gi niurka (test code = 12654-3) Date of last NONE GIVEN menstrual period (test code = 8665-2) Prev. pap: (test code NONE G IVEN = 65164-5) Prev. bx: (test code NONE GI NIURKA = 39292-5) Source (test code = None giv en ) Statement of adequacy Satisf actory for (test code = 91567-1) evalua tion.Endocervi cony/transformat ion zone componentpresen t.Age and/or menstrua l status not prov ided Interpretation/result Negati ve for : (test code = intraepitheli al 02518-3) lesion or malignancy. Comment (test code = This Pa p test has ) been evaluated with computerassiste d technology. Review PMT, CT(ASCP)CT bicycle courier screening l ocation: (test code = 89055-4) [facility] [address] [place] [address], [facility] [address] Comment (test code = EXPLANA TORY NOTE: 9113128) The Pap is a screening test for cervical cancer . It is not a diagno stic test and is sub ject to false negati ve and false posit cole results. It is most reliable when a satisfactory sa mple, regularly obtai kday, is submitted wi th relevant clinic al findings and history, and wh en the Pap result is evaluated along with historic and cu rrent clinical information. HPV mRNA e6/e7 (test Not Detected Not Detected Methodo logy: code = 94091-1) Transcriptio n-Mediat ed Amplificatio n This assay dete cts E6/E7 viral messenger RNA ( mRNA) from 14high-ris k HPV types (16,18,31,33,35 ,39,4 5,51,52,56,58,5 9,66, 68). The analyt ical performance characteristics of thisassay have been determined by [employer].The modifications h ave not been cleare d or approvedby the FDA. This assay has been validated pursu antto the CLIA regula tions and is used forclinical purposes. For additional information, pl ease refer tohttp://educat ion.Everlaw .Global Locate/ faq/DYI716o2(Th is link if provide d for information/edu catio nal purposes on ly.) JACEK (test code = RAC) Performing Organization Information: Site ID: IG Name: [facility] Address: [address] [place] [address] Director: Dr. Rajinder Grant Site ID: RGA Name: [facility] Address: [address] [place] [address] Director: Rajinder Grant [facility]IN[facility] PAP AND HPV mRNA E6/E7 REFLEX HPV 16,18/45 2021-06-19 18:43:00 Test Item Value Reference Interpretation Comments Range Clinical information None gi niurka (test code = 95412-3) Date of last NONE GIVEN menstrual period (test code = 8665-2) Prev. pap: (test code NONE G IVEN = 05505-7) Prev. bx: (test code NONE GI NIURKA = 10002-2) Source (test code = None giv en ) Statement of adequacy Satisf actory for (test code = 47640-0) evalua tion.Endocervi cony/transformat ion zone componentpresen t.Age and/or menstrua l status not prov ided Interpretation/result Negati ve for : (test code = intraepitheli al 25954-2) lesion or malignancy. Comment (test code = This Pa p test has ) been evaluated with computerassiste d technology. Review PMT, CT(ASCP)CT bicycle courier screening l ocation: (test code = 53608-5) [facility] [place] [address], [place] [address] 2 Comment (test code = MARYURIA NONA NOTE: 8130667) The Pap is a screening test for [...] Detected Not Detected Methodo logy: code = 61381-5) Transcriptio n-Mediat ed Amplificatio n This assay dete cts E6/E7 viral messenger RNA ( mRNA) from 14high-ris k HPV types (16,18,31,33,35 ,39,4 5,51,52,56,58,5 9,66, 68). The analyt ical performance characteristics of thisassay have been determined by [employer].The modifications h ave not been cleare d or approvedby the FDA. This assay has been validated pursu antto the CLIA regula tions and is used forclinical purposes. For additional information, pl ease refer tohttp://educat ion.Everlaw .Global Locate/ faq/EEE194o4(Th is link if provide d for information/edu catio nal purposes on ly.) RAC (test code = RAC) Performing Organization Information: Site ID: IG Name: [facility] Address: [address] [place] [address] Director: Dr. Rajinder Grant Site ID: RGA Name: [facility] Address: [address] [place] [address] Director: Rajinder Grant [facility]IN[facility] TIS PAP AND HPV mRNA E6/E7 REFLEX HPV 16,18/45 2021-06-19 18:43:00 Test Item Value Reference Interpretation Comments Range Clinical information None gi niurka (test code = 79511-9) Date of last NONE GIVEN menstrual period (test code = 8665-2) Prev. pap: (test code NONE G IVEN = 78912-9) Prev. bx: (test code NONE GI NIURKA = 98270-5) Source (test code = None giv en ) Statement of adequacy Satisf actory for (test code = 47504-9) evalua tion.Endocervi cony/transformat ion zone componentpresen t.Age and/or menstrua l status not prov ided Interpretation/result Negati ve for : (test code = intraepitheli al 60899-8) lesion or malignancy. Comment (test code = This Pa p test has ) been evaluated with Jirafeiste d technology. Review PMT, CT(ASCP)CT bicycle courier screening l ocation: (test code = 17437-3) [facility] [address], [facility] [address] Comment (test code = EXPLANA TORY NOTE: 4757659) The Pap is a screening test for [...] Detected Not Detected Methodo logy: code = 32925-3) Transcriptio n-Mediat ed Amplificatio n This assay dete cts E6/E7 viral messenger RNA ( mRNA) from 14high-ris k HPV types (16,18,31,33,35 ,39,4 5,51,52,56,58,5 9,66, 68). The analyt ical performance characteristics of thisassay have been determined by [employer].The modifications h ave not been cleare d or approvedby the FDA. This assay has been validated pursu antto the CLIA regula tions and is used forclinical purposes. For additional information, pl ease refer tohttp://educat ion.Everlaw .Global Locate/ faq/HPF012j9(Th is link if provide d for information/edu catio nal purposes on ly.) JACEK (test code = JACEK) Performing Organization Information: Site ID: IG Name: [facility] Address: [address] [place] [address] Director: Dr. Rajinder Grant Site ID: RGA Name: [facility] Address: [address] [place] [address] Director: Rajinder Grant [facility]IN[facility] PAP AND HPV mRNA E6/E7 REFLEX HPV 16,18/45 2021-06-19 18:43:00 Test Item Value Reference Interpretation Comments Range Clinical information None gi niurka (test code = 27888-8) Date of last NONE GIVEN menstrual period (test code = 8665-2) Prev. pap: (test code NONE G IVEN = 02609-6) Prev. bx: (test code NONE GI NIURKA = 69140-6) Source (test code = None giv en ) Statement of adequacy Satisf actory for (test code = 32162-7) evalua tion.Endocervi cony/transformat ion zone componentpresen t.Age and/or menstrua l status not prov ided Interpretation/result Negati ve for : (test code = intraepitheli al 94678-5) lesion or malignancy. Comment (test code = This Pa p test has ) been evaluated with computerassiste d technology. Review PMT, CT(ASCP)CT bicycle courier screening l ocation: (test code = 26099-3) [facility] [address], [place] [address] 2 Comment (test code = EXPLANA TORY NOTE: 2542818) The Pap is a screening test for [...] Detected Not Detected Methodo logy: code = 74569-9) Transcriptio n-Mediat ed Amplificatio n This assay dete cts E6/E7 viral messenger RNA ( mRNA) from 14high-ris k HPV types (16,18,31,33,35 ,39,4 5,51,52,56,58,5 9,66, 68). The analyt ical performance characteristics of thisassay have been determined by [employer].The modifications h ave not been cleare d or approvedby the FDA. This assay has been validated pursu antto the CLIA regula tions and is used forclinical purposes. For additional information, pl ease refer tohttp://educat ion.[employer]/ faq/UKK077q2(Th is link if provide d for information/edu catio nal purposes on ly.) RAC (test code = RAC) Performing Organization Information: Site ID: IG Name: [facility] Address: [address] [place] [address] Director: Dr. Rajinder Grant Site ID: RGA Name: [facility] Address: [address] [place] [address] Director: Rajinder Grant [facility] PAP AND HPV mRNA E6/E7 REFLEX HPV 16,18/45 2021-06-19 18:43:00 Test Item Value Reference Interpretation Comments Range Clinical information None gi niurka (test code = 31014-8) Date of last NONE GIVEN menstrual period (test code = 8665-2) Prev. pap: (test code NONE G IVEN = 87526-9) Prev. bx: (test code NONE GI NIURKA = 57003-4) Source (test code = None giv en 11379-6) Statement of adequacy Satisf actory for (test code = 97412-7) evalua tion.Endocervi cony/transformat ion zone componentpresen t.Age and/or menstrua l status not prov ided Interpretation/result Negati ve for : (test code = intraepitheli al 51415-9) lesion or malignancy. Comment (test code = This Pa p test has ) been evaluated with computerassiste d technology. Review PMT, CT(ASCP)CT bicycle courier screening l ocation: (test code = 22117-7) [facility] [address], [place] [address] 2 Comment (test code = EXPLANA TORY NOTE: 0249338) The Pap is a screening test for [...] Detected Not Detected Methodo logy: code = 59680-1) Transcriptio n-Mediat ed Amplificatio n This assay dete cts E6/E7 viral messenger RNA ( mRNA) from 14high-ris k HPV types (16,18,31,33,35 ,39,4 5,51,52,56,58,5 9,66, 68). The analyt ical performance characteristics of thisassay have been determined by [employer].The modifications h ave not been cleare d or approvedby the FDA. This assay has been validated pursu antto the CLIA regula tions and is used forclinical purposes. For additional information, pl ease refer tohttp://educat ion.Everlaw .Global Locate/ faq/TVB923s5(Th is link if provide d for information/edu catio nal purposes on ly.) RAC (test code = RAC) Performing Organization Information: Site ID: IG Name: [facility] Address: [address] [place] [address] Director: Dr. Rajinder Grant Site ID: RGA Name: [facility] Address: [address] [place] [address] Director: Rajinder Grant [facility], COMPLETE, WITH REFLEX TO [id number] 09:37:00 Test Item Value Reference Interpretation Comments Range Color, UA (test code YELLOW YELLOW = 5778-6) Appearance (test CLEAR CLEAR code = 5767-9) Specific gravity, 1.001-1.035 urine (test code = 5811-5) pH, urine (test code 5.0-8.0 = 5803-2) Glucose, urine (test NEGATIVE NEGATIVE code = 54493-9) Bilirubin, UA (test NEGATIVE NEGATIVE code = 5770-3) Ketones, UA (test NEGATIVE NEGATIVE code = 2514-8) Occult blood, urine NEGATIVE NEGATIVE (test code = 5794-3) Protein, UA (test NEGATIVE NEGATIVE code = 53032-9) Nitrite, UA (test NEGATIVE NEGATIVE code = [...] code = NONE SEEN See_Comment [Autom ated 66721-7) message] The sy stem which generated this result transmitted reference range : < OR = 2 /HPF. Th e reference range was not used to interpret this result as normal/abnormal . Squamous epithelial NONE SEEN See_Comment [Automa aydin cells, UA (test code message ] The system = 58604-4) which generated this result transmitted reference range [...] URINE, code = 630-4) ROUTINE Micro Number: [id number] Test Status: Fi nal Specimen Source [...] RAC) Organization Information: Site ID: RGA Name: [facility] Address: [address] [place] [address] Director: Rajinder Grant Lab Interpretation Abnormal (test code = 12823-0) [facility]AL[facility], COMPLETE, WITH REFLEX TO [id number] 09:37:00 Test Item Value Reference Interpretation Comments Range Color, UA (test code YELLOW YELLOW = 5778-6) Appearance (test CLEAR CLEAR code = 5767-9) Specific gravity, 1.001-1.035 urine (test code = 5811-5) pH, urine (test code 5.0-8.0 = 5803-2) Glucose, urine (test NEGATIVE NEGATIVE code = 39348-8) Bilirubin, UA (test NEGATIVE NEGATIVE code = 5770-3) Ketones, UA (test NEGATIVE NEGATIVE code = 2514-8) Occult blood, urine NEGATIVE NEGATIVE (test code = 5794-3) Protein, UA (test NEGATIVE NEGATIVE code = 67343-8) Nitrite, UA (test NEGATIVE NEGATIVE code = [...] code = NONE SEEN See_Comment [Autom ated 05888-5) message] The sy stem which generated this result transmitted reference range : < OR = 2 /HPF. Th e reference range was not used to interpret this result as normal/abnormal . Squamous epithelial NONE SEEN See_Comment [Automa aydin cells, UA (test code message ] The system = 75172-4) which generated this result transmitted reference range [...] URINE, code = 630-4) ROUTINE Micro Number: [id number] Test Status: Fi nal Specimen Source [...] RAC) Organization Information: Site ID: BEBA Name: [facility] Address: [address] [place] [phone] Director: Rajinder Grant Lab Interpretation Abnormal (test code = 52162-1) [facility], [facility] [id number] 09:37:00 Test Item Value Reference Interpretation Comments Range Color, UA (test code YELLOW YELLOW = 5778-6) Appearance (test CLEAR CLEAR code = 5767-9) Specific gravity, 1.001-1.035 urine (test code = 5811-5) pH, urine (test code 5.0-8.0 = 5803-2) Glucose, urine (test NEGATIVE NEGATIVE code = 65624-6) Bilirubin, UA (test NEGATIVE NEGATIVE code = 5770-3) Ketones, UA (test NEGATIVE NEGATIVE code = 2514-8) Occult blood, urine NEGATIVE NEGATIVE (test code = 5794-3) Protein, UA (test NEGATIVE NEGATIVE code = 41030-9) Nitrite, UA (test NEGATIVE NEGATIVE code = [...] code = NONE SEEN See_Comment [Autom ated 12679-6) message] The sy stem which generated this result transmitted reference range : < OR = 2 /HPF. Th e reference range was not used to interpret this result as normal/abnormal . Squamous epithelial NONE SEEN See_Comment [Automa aydin cells, UA (test code message ] The system = 83493-9) which generated this result transmitted reference range [...] URINE, code = 630-4) ROUTINE Micro Number: [id number] Test Status: Fi nal Specimen Source [...] RAC) Organization Information: Site ID: RGA Name: [facility] Address: [address] [place] [id number] Director: Rajinder Grant Lab Interpretation Abnormal (test code = 24330-2) [facility] WITH REFLEX TO [id number] 09:37:00 Test Item Value Reference Interpretation Comments Range Color, UA (test code YELLOW YELLOW = 5778-6) Appearance (test CLEAR CLEAR code = 5767-9) Specific gravity, 1.001-1.035 urine (test code = 5811-5) pH, urine (test code 5.0-8.0 = 5803-2) Glucose, urine (test NEGATIVE NEGATIVE code = 61857-5) Bilirubin, UA (test NEGATIVE NEGATIVE code = 5770-3) Ketones, UA (test NEGATIVE NEGATIVE code = 2514-8) Occult blood, urine NEGATIVE NEGATIVE (test code = 5794-3) Protein, UA (test NEGATIVE NEGATIVE code = 30252-6) Nitrite, UA (test NEGATIVE NEGATIVE code = [...] code = NONE SEEN See_Comment [Autom ated 19549-8) message] The sy stem which generated this result transmitted reference range : < OR = 2 /HPF. Th e reference range was not used to interpret this result as normal/abnormal . Squamous epithelial NONE SEEN See_Comment [Automa aydin cells, UA (test code message ] The system = 71970-0) which generated this result transmitted reference range [...] URINE, code = 630-4) ROUTINE Micro Number: [id number] Test Status: Fi nal Specimen Source [...] RAC) Organization Information: Site ID: RGA Name: [facility] Address: [address] [place] [phone] Director: Rajinder Grant Lab Interpretation Abnormal (test code = 68242-7) [facility] WITH REFLEX TO [id number] 09:37:00 Test Item Value Reference Interpretation Comments Range Color, UA (test code YELLOW YELLOW = 5778-6) Appearance (test CLEAR CLEAR code = 5767-9) Specific gravity, 1.001-1.035 urine (test code = 5811-5) pH, urine (test code 5.0-8.0 = 5803-2) Glucose, urine (test NEGATIVE NEGATIVE code = 58417-1) Bilirubin, UA (test NEGATIVE NEGATIVE code = 5770-3) Ketones, UA (test NEGATIVE NEGATIVE code = 2514-8) Occult blood, urine NEGATIVE NEGATIVE (test code = 5794-3) Protein, UA (test NEGATIVE NEGATIVE code = 66536-9) Nitrite, UA (test NEGATIVE NEGATIVE code = [...] code = NONE SEEN See_Comment [Autom ated 99445-2) message] The sy stem which generated this result transmitted reference range : < OR = 2 /HPF. Th e reference range was not used to interpret this result as normal/abnormal . Squamous epithelial NONE SEEN See_Comment [Automa aydin cells, UA (test code message ] The system = 64999-3) which generated this result transmitted reference range [...] URINE, code = 630-4) ROUTINE Micro Number: [id number] Test Status: Fi nal Specimen Source [...] RAC) Organization Information: Site ID: BEBA Name: [facility] Address: [address] [place] [phone] Director: Rajinder Grant Lab Interpretation Abnormal (test code = 03780-3) [facility], WITH REFLEX TO [id number] 09:37:00 Test Item Value Reference Interpretation Comments Range Color, UA (test code YELLOW YELLOW = 5778-6) Appearance (test CLEAR CLEAR code = 5767-9) Specific gravity, 1.001-1.035 urine (test code = 5811-5) pH, urine (test code 5.0-8.0 = 5803-2) Glucose, urine (test NEGATIVE NEGATIVE code = 75826-5) Bilirubin, UA (test NEGATIVE NEGATIVE code = 5770-3) Ketones, UA (test NEGATIVE NEGATIVE code = 2514-8) Occult blood, urine NEGATIVE NEGATIVE (test code = 5794-3) Protein, UA (test NEGATIVE NEGATIVE code = 99587-1) Nitrite, UA (test NEGATIVE NEGATIVE code = [...] code = NONE SEEN See_Comment [Autom ated 49295-9) message] The sy stem which generated this result transmitted reference range : < OR = 2 /HPF. Th e reference range was not used to interpret this result as normal/abnormal . Squamous epithelial NONE SEEN See_Comment [Automa aydin cells, UA (test code message ] The system = 40432-6) which generated this result transmitted reference range [...] URINE, code = 630-4) ROUTINE Micro Number: [id number] Test Status: Fi nal Specimen Source [...] = Performing RAC) Organization Information: Site ID: [facility] Address: [address] [place] [phone] Director: Rajinder Grant Lab Interpretation Abnormal (test code = 50147-9) [facility], WITH REFLEX TO [id number] 09:37:00 Test Item Value Reference Interpretation Comments Range Color, UA (test code YELLOW YELLOW = 5778-6) Appearance (test CLEAR CLEAR code = 5767-9) Specific gravity, 1.009 1.001-1.035 urine (test code = 5811-5) pH, urine (test code 7.0 5.0-8.0 = 5803-2) Glucose, urine (test NEGATIVE NEGATIVE code = 51731-1) Bilirubin, UA (test NEGATIVE NEGATIVE code = 5770-3) Ketones, UA (test NEGATIVE NEGATIVE code = 2514-8) Occult blood, urine NEGATIVE NEGATIVE (test code = 5794-3) Protein, UA (test NEGATIVE NEGATIVE code = 05054-5) Nitrite, UA (test NEGATIVE NEGATIVE code = [...] code = NONE SEEN See_Comment [Autom ated 41963-9) message] The sy stem which generated this result transmitted reference range : < OR = 2 /HPF. Th e reference range was not used to interpret this result as normal/abnormal . Squamous epithelial NONE SEEN See_Comment [Automa aydin cells, UA (test code message ] The system = 75304-5) which generated this result transmitted reference range [...] URINE, code = 630-4) ROUTINE Micro Number: [id number] Test Status: Fi nal Specimen Source [...] RAC) Organization Information: Site ID: RGA [facility] Address: [address] [place] [phone] Director: Rajinder Grant Lab Interpretation Abnormal (test code = 95699-7) [facility] urinalysis [id number] 18:20:00 Test Item Value Reference Range Interpretation Comments Color urine, POC (test Straw code = 4952124) Clarity urine, POC (test Clear code = 5962605) Glucose urine, POC (test Negative Negative code = 3082033) Bilirubin urine, POC Negative Negative (test code = 0729556) Ketones urine, POC (test Negative Negative code = 3653848) Specific gravity urine, 1.005-1.030 POC (test code = 9072316) Blood urine, POC (test Trace Negative A code = 1478864) pH urine, POC (test code See_Comment [A utomated message] = 8236136) The system [employer] h generated this result transmitted ref erence range: 5.0, 5.5 , 6.0, 6.5, 7.0, 7.5, 8.0, 8.5. The refere nce range was not u sed to interpret this result as normal/abnor mal. Protein urine, POC (test Negative Negative code = 2375303) Urobilinogen urine, POC <2.0 See_Comment [Au tomated message] (test code = 9432083) The sy stem which generated this result transmitted ref erence range: <=2.0. T he reference range was not used to int erpret this result as normal/abnormal . Nitrite urine, POC (test Negative Negative code = 3481042) Leukocyte esterase Negative Negative urine, POC (test code = 3034725) Lab Interpretation (test Abnormal code = 88782-1) [facility] urinalysis [id number] 18:20:00 Test Item Value Reference Range Interpretation Comments Color urine, POC (test Straw code = 9740451) Clarity urine, POC (test Clear code = 2023687) Glucose urine, POC (test Negative Negative code = 9196648) Bilirubin urine, POC Negative Negative (test code = 7216834) Ketones urine, POC (test Negative Negative code = 1964180) Specific gravity urine, 1.005-1.030 POC (test code = 2735154) Blood urine, POC (test Trace Negative A code = 2167641) pH urine, POC (test code See_Comment [A utomated message] = 8959054) The system [employer] generated this result transmitted ref erence range: 5.0, 5.5 , 6.0, 6.5, 7.0, 7.5, 8.0, 8.5. The refere nce range was not u sed to interpret this result as normal/abnor mal. Protein urine, POC (test Negative Negative code = 6336901) Urobilinogen urine, POC <2.0 See_Comment [Au tomated message] (test code = 7562900) The sy stem which generated this result transmitted ref erence range: <=2.0. T he reference range was not used to int erpret this result as normal/abnormal . Nitrite urine, POC (test Negative Negative code = 8107738) Leukocyte esterase Negative Negative urine, POC (test code = 4851804) Lab Interpretation (test Abnormal code = 47633-6) [facility] urinalysis [id number] 18:20:00 Test Item Value Reference Range Interpretation Comments Color urine, POC (test Straw code = 9768473) Clarity urine, POC (test Clear code = 5416958) Glucose urine, POC (test Negative Negative code = 5947955) Bilirubin urine, POC Negative Negative (test code = 9490271) Ketones urine, POC (test Negative Negative code = 5467567) Specific gravity urine, 1.005-1.030 POC (test code = 2015497) Blood urine, POC (test Trace Negative A code = 6505851) pH urine, POC (test code See_Comment [A utomated message] = 1033678) The system [employer] generated this result transmitted ref erence range: 5.0, 5.5 , 6.0, 6.5, 7.0, 7.5, 8.0, 8.5. The refere nce range was not u sed to interpret this result as normal/abnor mal. Protein urine, POC (test Negative Negative code = 9467975) Urobilinogen urine, POC <2.0 See_Comment [Au tomated message] (test code = 8171218) The sy stem which generated this result transmitted ref erence range: <=2.0. T he reference range was not used to int erpret this result as normal/abnormal . Nitrite urine, POC (test Negative Negative code = 0692008) Leukocyte esterase Negative Negative urine, POC (test code = 9113791) Lab Interpretation (test Abnormal code = 88573-9) [facility] urinalysis [id number] 18:20:00 Test Item Value Reference Range Interpretation Comments Color urine, POC (test Straw code = 1617346) Clarity urine, POC (test Clear code = 3585610) Glucose urine, POC (test Negative Negative code = 2436695) Bilirubin urine, POC Negative Negative (test code = 9053781) Ketones urine, POC (test Negative Negative code = 4075629) Specific gravity urine, 1.005-1.030 POC (test code = 7296130) Blood urine, POC (test Trace Negative A code = 7240703) pH urine, POC (test code See_Comment [A utomated message] = 5228930) The system [employer] h generated this result transmitted ref erence range: 5.0, 5.5 , 6.0, 6.5, 7.0, 7.5, 8.0, 8.5. The refere nce range was not u sed to interpret this result as normal/abnor mal. Protein urine, POC (test Negative Negative code = 7994728) Urobilinogen urine, POC <2.0 See_Comment [Au tomated message] (test code = 0125812) The sy stem which generated this result transmitted ref erence range: <=2.0. T he reference range was not used to int erpret this result as normal/abnormal . Nitrite urine, POC (test Negative Negative code = 5847307) Leukocyte esterase Negative Negative urine, POC (test code = 4454155) Lab Interpretation (test Abnormal code = 57735-3) [facility] urinalysis [id number] 18:20:00 Test Item Value Reference Range Interpretation Comments Color urine, POC (test Straw code = 5651566) Clarity urine, POC (test Clear code = 9397811) Glucose urine, POC (test Negative Negative code = 2205308) Bilirubin urine, POC Negative Negative (test code = 8508720) Ketones urine, POC (test Negative Negative code = 2109141) Specific gravity urine, 1.005-1.030 POC (test code = 1588688) Blood urine, POC (test Trace Negative A code = 1370155) pH urine, POC (test code See_Comment [A utomated message] = 7287536) The system [employer] generated this result transmitted ref erence range: 5.0, 5.5 , 6.0, 6.5, 7.0, 7.5, 8.0, 8.5. The refere nce range was not u sed to interpret this result as normal/abnor mal. Protein urine, POC (test Negative Negative code = 8286784) Urobilinogen urine, POC <2.0 See_Comment [Au tomated message] (test code = 6582877) The [employer] stem which generated this result transmitted ref erence range: <=2.0. T he reference range was not used to int erpret this result as normal/abnormal . Nitrite urine, POC (test Negative Negative code = 3302278) Leukocyte esterase Negative Negative urine, POC (test code = 6376186) Lab Interpretation (test Abnormal code = 32498-2) [facility] urinalysis [id number] 18:20:00 Test Item Value Reference Range Interpretation Comments Color urine, POC (test Straw code = 7407630) Clarity urine, POC (test Clear code = 2653730) Glucose urine, POC (test Negative Negative code = 7529941) Bilirubin urine, POC Negative Negative (test code = 4719087) Ketones urine, POC (test Negative Negative code = 3002975) Specific gravity urine, 1.005-1.030 POC (test code = 2629493) Blood urine, POC (test Trace Negative A code = 7734074) pH urine, POC (test code See_Comment [A utomated message] = 0190033) The system [employer] generated this result transmitted ref erence range: 5.0, 5.5 , 6.0, 6.5, 7.0, 7.5, 8.0, 8.5. The refere nce range was not u sed to interpret this result as normal/abnor mal. Protein urine, POC (test Negative Negative code = 6250095) Urobilinogen urine, POC <2.0 See_Comment [Au tomated message] (test code = 1020951) The sy stem which generated this result transmitted ref erence range: <=2.0. T he reference range was not used to int erpret this result as normal/abnormal . Nitrite urine, POC (test Negative Negative code = 4809708) Leukocyte esterase Negative Negative urine, POC (test code = 0895443) Lab Interpretation (test Abnormal code = 92227-3) [facility] urinalysis [id number] 18:20:00 Test Item Value Reference Range Interpretation Comments Color urine, POC (test Straw code = 5711995) Clarity urine, POC (test Clear code = 2702835) Glucose urine, POC (test Negative Negative code = 2129215) Bilirubin urine, POC Negative Negative (test code = 5237897) Ketones urine, POC (test Negative Negative code = 4444319) Specific gravity urine, 1.015 1.005-1.030 POC (test code = 9794185) Blood urine, POC (test Trace Negative A code = 3761201) pH urine, POC (test code 8.0 See_Comment [A utomated message] = 4059370) The system [employer] generated this result transmitted ref erence range: 5.0, 5.5 , 6.0, 6.5, 7.0, 7.5, 8.0, 8.5. The refere nce range was not u sed to interpret this result as normal/abnor mal. Protein urine, POC (test Negative Negative code = 8924675) Urobilinogen urine, POC <2.0 <=2.0 (test code = 8767136) Nitrite urine, POC (test Negative Negative code = 4283898) Leukocyte esterase Negative Negative urine, POC (test code = 3741215) Lab Interpretation (test Abnormal code = 19005-2) [facility] [Presence] in Respiratory specimen by LATESHA with probe [id number] 09:55:01 Test Item Value Reference Range Interpretation Comments SARS-CoV-2 (COVID-19) RNA Not detected Not-Detected [Presence] in Respiratory specimen by LATESHA with probe detection (test code = 71657-2) Whether patient is employed in a healthcare setting (test code = 64616-9) Whether the patient has symptoms related to condition of interest (test code = 33057-5) Patient was hospitalized because of this condition (test code = 58684-7) Whether the patient was admitted to intensive care unit (ICU) for condition of interest (test code = 56485-3) Whether patient resides in a congregate care setting (test code = 38798-5) [facility]-CoV-2 (COVID-19) RNA [Presence] in Respiratory specimen by LATESHA with probe [id number] 03:07:44 Test Item Value Reference Range Interpretation Comments SARS-CoV-2 (COVID-19) RNA Not detected Not-Detected [Presence] in Respiratory specimen by LATESHA with probe detection (test code = 71134-7) Whether patient is employed in a healthcare setting (test code = 73888-0) Whether the patient has symptoms related to condition of interest (test code = 86555-9) Patient was hospitalized because of this condition (test code = 08338-6) Whether the patient was admitted to intensive care unit (ICU) for condition of interest (test code = 54893-5) Whether patient resides in a congregate care setting (test code = 20683-0) [facility]-CoV-2 (COVID-19) RNA [Presence] in Respiratory specimen by LATESHA with probe [id number] 02:34:50 Test Item Value Reference Range Interpretation Comments SARS-CoV-2 (COVID-19) RNA Not detected Not-Detected [Presence] in Respiratory specimen by LATESHA with probe detection (test code = 10382-0) Whether patient is employed in a healthcare setting (test code = 25682-5) Whether the patient has symptoms related to condition of interest (test code = 73818-8) Patient was hospitalized because of this condition (test code = 70905-3) Whether the patient was admitted to intensive care unit (ICU) for condition of interest (test code = 53732-9) Whether patient resides in a congregate care setting (test code = 25974-7) [facility]-CoV-2 (COVID-19) RNA [Presence] in Respiratory specimen by LATESHA with probe [id number] 22:46:50 Test Item Value Reference Range Interpretation Comments SARS-CoV-2 (COVID-19) RNA Not detected Not-Detected [Presence] in Respiratory specimen by LATESHA with probe detection (test code = 90764-9) [facility]-CoV-2 (COVID-19) RNA [Presence] in Respiratory specimen by LATESHA with probe [id number] 10:19:38 Test Item Value Reference Range Interpretation Comments SARS-CoV-2 (COVID-19) RNA Not detected Not-Detected [Presence] in Respiratory specimen by LATESHA with probe detection (test code = 04401-8) [facility]-CoV-2 (COVID-19) RNA [Presence] in Respiratory specimen by LATESHA with probe [id number] 00:17:03 Test Item Value Reference Range Interpretation Comments SARS-CoV-2 (COVID-19) RNA Not detected Not-Detected [Presence] in Respiratory specimen by LATESHA with probe detection (test code = 85999-6) [facility]-CoV-2 (COVID-19) RNA [Presence] in Respiratory specimen by LATESHA with probe [id number] 00:59:15 Test Item Value Reference Range Interpretation Comments SARS-CoV-2 (COVID-19) RNA Not detected Not-Detected [Presence] in Respiratory specimen by LATESHA with probe detection (test code = 28004-2) [place] [address]+ i-STAT [id number] 08:12:00 Test Item Value Reference [...] PELVIS WITHOUT CONTRAST, RENAL STONE PROTOCOL:Location code: [id number] HISTORY: Flank painCOMPARISON: CT abdomen and pelvis [...] Range Interpretation Comments COLOR (test code = [place] YELLOW A COLU) CLARITY (test code = [...] 11:03:05CT abdomen and pelvis with contrastLocation Code: [id number] HISTORY: Lower abdominal painCOMPARISON: NoneTechnique: Helical CT [...] Notes Date/Time Note Provider Source 2021-08-08 18:57:00-00:00 [facility] EMERGENCY PROVIDER REPORT REPORT#:[id number] REPORT STATUS: Signed DATE:08/08/21 TIME: 1856 PATIENT: HERSON JACKSON UNIT #: [id number] ROOM/BED: AGE: 51 SEX: F PCP PHYS: No Primary or Family P hysician SERVICE AUTHOR: Baldomero Stanley * ALL edits or amendments must be made on the [employer] document * Baldomero Stanley 08/08/21 1857: HPI- Female General Confirmed Patient Yes Presentation [...] pH (5.0 - 8.0) 5.0 Ur Specific [place] (<1.030) 1.018 Urine Protein (Negative mg/dL) NEGATIVE [...] Epith Cells (0 - 5 (RARE) /HPF) 6- 15 (FEW) H Urine Bacteria (None - Rare /HPF) None Urine Mucus (<Rare /LPF) 2+ H 08/08 1355 Chemistry Sodium (137 - 145 mmol/L) 141 [...] (Auto) (20.5 - 45.5 %) 15.8 L [place] % (Auto) (5.5 - 11.7 %) 9.8 Eos % (Auto) (0.9 - 2.9 %) 0.7 L Baso % (Auto) (0.2 - 1.0 %) 0.3 Neut # (Auto) (2.2 - 4.8 x10 3/uL) 6.69 H Lymph # (Auto) (1.3 - 2.9 x10 3/uL) 1.45 [place] # (Auto) (0.3 - 0.8 x10 3/uL) 0.90 H Eos # (Auto) (0.0 - 0.2 x10 3/uL) 0.06 Baso # (Auto) (0.0 - 0.1 x10 3/uL) 0.03 Immature Gran % (0.0 - 2.0 %) 0.3 Nucleated RBC % (0 - 1.0 %) 0.0 Microbiology: Date/Time Procedure - Status Source Growth 08/08 184 Urine Culture - RECD URINE 08/08 1354 Blood Culture - RES BLOOD 08/08 1354 Blood Culture - RES BLOOD Recent Impressions: [...] by me, Pulse oximetr y normal Time 5 ECG #1 Interpretation Date 08/08/21 Time 1353 [...] acute ischemia; the rhythm is normal sinus; MN does not demonstrate AV heart block; QRS does not demonstrate a bundle branch block; ST and T waves do not show any ST elevation to sugg est acute [place]; see Jackson for details and measurements; agree with computer [...] her phone number. Her phone number is [phone]. That number did not work . I [...] cussed the diagnosis and she agreed to flower picker both doxycycline and Flagyl antib iotics at the [facility] with ZIP Code [address]. I instructed the patient that sh e does not have to take the Macrobid any longer. Patient verbalized understanding and states she will flower picker her prescriptions in the morning. Time of [...] PHENAZOPYRIDINE (PYRIDIUM) 200 MG PO TID PRN MN N DYSURIA #6 TABS TAKE AFTER MEALS. DOXYCYCLINE HYCLATE (VIBRAMYCIN) 100 MG PO Q12H 14 Days #28 CAPS metroNIDAZOLE (FLAGYL) 500 MG PO BID 14 Days #28 TABS Prescriptions Reviewed Risks, Benefits, Alternat cole treatment Patient Instructions Urinary Tract Infections in Women Departure Forms [facility] [place] PCP LIST UROLOGIST LIST Discharge Note I [...] symptoms should prompt an immediate return to [facility] or the closest emergency department or a call to 911. Naren Sapp 08/09/21 0259: HPI- Female General Initial Greet Date/Time 08/08/21 1248 Patient Discharge Departure Supervising Physician Note MidLv Saw Pt Alone I have reviewed the PA/[employer]IDGE CON[employer]CTION INSPECTOR's note and plan of car e. I was available for consultation as needed at al l times during the patient's visit in the emergency department. Electronically Signed by Baldomero Stanley on 0 08/09/21 at 0148 at 0300 RPT #:[id number] END OF REPORT 2021-08-08 13:00:00-00:00 [facility] ([facility]) EMERGENCY PROVIDER REPORT REPORT#:[id number] REPORT STATUS: Signed DATE:08/08/21 TIME: 1300 PATIENT: HERSON JACKSON #: [id number] ROOM/BED: AGE: 51 SEX: F PCP PHYS: No Primary or Family Ph ysician SERVICE AUTHOR: Debo Gutierrez * ALL edits or amendments must be made on the [employer] document * Debo Gutierrez 08/08/21 1300: Provider [...] by Norberto Mendez MD on at 1200 RPT #:[id number] END OF REPORT
--- NOTE | 2022-10-19 18:18 | RAD REPORT ---
EXAM DESCRIPTION: RAD - Chest Pa And Lat (2 Views) - 10/19/2022 6:13 pm CLINICAL HISTORY: COUGH COMPARISON: No comparisonsChest Single View dated 09/13/2022; Chest Single View dated 08/14/2022; Chest Single View dated 04/23/2022; Chest Single View dated 04/15/2022 FINDINGS: Lines: None. Lungs: No evidence of edema or pneumonia. Pleural: No significant pleural effusions or pneumothorax. Cardiac: The heart size is within normal limits. Mediastinum: Within normal limits. Bones: No acute fractures. Other: None IMPRESSION: No acute cardiopulmonary disease.
[2022-10-19] MEDS ORDERED: IPRATROPIUM BROM 0.5MG/2.5ML ONE (18:40)
[2022-10-19] MEDS ORDERED: ALBUTEROL 2.5 MG/3 ML NEB SOL ONE (18:40)
[2022-10-19] MEDS ORDERED: BENZONATATE 100 MG CAP PO ONE ×2 (18:40→18:52)
--- NOTE | 2022-10-19 18:47 | EDPHYS ---
Physician Documentation [facility] Name: Fany Meza Age: 52 yrs Sex: Female : 1970 Arrival Date: 10/19/2022 Time: 16:53 Bed 11 Private MD: ED Physician Nigel Knight HPI: 10/19 18:00 This 52 yrs old Female presents to ER via Ambulatory with complaints of Cough, Sore cp Throat, Vomiting. 18:00 The patient or guardian reports cough, that is constant, with productive sputum, that cp is purulent. Onset: The symptoms/episode began/occurred last week. Severity of symptoms: in the emergency department the symptoms are unchanged, despite home interventions. Associated signs and symptoms: Pertinent positives: chest pain, with cough, nausea, vomiting, Pertinent negatives: diarrhea. Patient reports she has had cough for over 1 week. Currently taking prescribed prednisone and Augmentin. Using cough medicine and inhaler w/o relief. Historical: - Allergies: 17:48 No Known Allergies; bp - Home Meds: 17:48 amlodipine 5 mg tab 1 tab once daily [Active]; bp - PMHx: 17:48 cervical cancer; Hep C , in remission; Hypertensive disorder; bp - PSHx: 17:48 neck; section; bp - Immunization history:: Adult Immunizations up to date. - Social history:: Smoking status: Patient reports the use of cigarette tobacco products, unknown amount. ROS: 18:05 Constitutional: Negative for chills, fever, poor PO intake. cp 18:05 Eyes: Negative for injury, pain, redness, and discharge. cp 18:05 ENT: Positive for sore throat, Negative for drainage from ear(s), ear pain, difficulty swallowing, difficulty handling secretions. 18:05 Cardiovascular: Negative for chest pain, edema, palpitations. 18:05 Respiratory: Positive for cough, "sounds productive", shortness of breath, on exertion. 18:05 Abdomen/GI: Positive for nausea and vomiting, Negative for diarrhea, constipation. 18:05 Skin: Negative for rash. 18:05 Neuro: Negative for altered mental status, headache, weakness. 18:05 All other systems are negative. Exam: 18:10 Constitutional: The patient appears in no acute distress, alert, awake, cp non-diaphoretic, non-toxic, well developed, well nourished, uncomfortable. 18:10 Head/Face: Normocephalic, atraumatic. cp 18:10 Eyes: Periorbital structures: appear normal, Conjunctiva: normal, no exudate, no injection, Sclera: no appreciated abnormality, Lids and lashes: appear normal, bilaterally. 18:10 ENT: External ear(s): are unremarkable, Ear canal(s): are normal, clear, TM's: dullness, bilaterally, Nose: is normal, Mouth: Lips: moist, Oral mucosa: moist, Posterior pharynx: Airway: no evidence of obstruction, patent, Tonsils: no enlargement, no exudate, swelling, is not appreciated, erythema, that is mild, exudate, is not appreciated. 18:10 Neck: ROM/movement: is normal, is supple, without pain, no range of motions limitations, no meningismus, no nuchal rigidity. 18:10 Chest/axilla: Inspection: normal. 18:10 Cardiovascular: Rate: normal, Rhythm: regular, Edema: is not appreciated, JVD: is not appreciated. 18:10 Respiratory: the patient does not display signs of respiratory distress, Respirations: labored breathing, is not present, shallow respirations, are not present, Breath sounds: bronchial sounds, that are mild, are heard diffusely, decreased breath sounds, are not appreciated, stridor, is not appreciated, wheezing: is not appreciated. 18:10 Abdomen/GI: Exam negative for discomfort, distension, guarding, Inspection: abdomen appears normal. 18:10 Back: pain, is absent, ROM is normal. 18:10 Skin: no rash present. 18:10 Neuro: Orientation: to person, place \\T\\ time. Mentation: is normal, Motor: moves all fours, strength is normal, Sensation: is normal. Vital Signs: 17:47 BP 131 / 92; Pulse 73; Resp 16; Temp 97.7; Pulse Ox 95% ; bp MDM: 17:52 Patient medically screened. cp 18:00 Differential Diagnosis: Bronchitis Influenza Viral Syndrome Pneumonia Other COPD, cp asthma. 18:45 Independent interpretation of the following test(s) in the Emergency Department X-Ray: cp My interpretation is chest images negative for focal infiltrates. 18:45 Data reviewed: vital signs, nurses notes, radiologic studies, plain films. cp 18:45 I considered the following discharge prescriptions or medication management in the cp emergency department Medications were administered in the Emergency Department. See MAR. Care significantly affected by the following chronic conditions: Hypertension, tobacco use. Counseling: I had a detailed discussion with the patient and/or guardian regarding: the historical points, exam findings, and any diagnostic results supporting the discharge/admit diagnosis, radiology results, to return to the emergency department if symptoms worsen or persist or if there are any questions or concerns that arise at home. Response to treatment: the patient's symptoms have markedly improved after treatment, and as a result, I will discharge patient. 10/19 17:57 Order name: XRAY Chest Pa And Lat (2 Views); Complete Time: 18:33 cp 10/19 18:33 Interpretation: Report reviewed. cp Administered Medications: 18:44 Drug: DuoNeb Nebulize (2.5 mg - 0.5 mg) 3 ml Route: Nebulizer; cm10 19:26 Follow up: Response: No adverse reaction; Marked relief of symptoms pf1 18:44 Drug: Tessalon Perle PO 200 mg Route: PO; cm10 19:26 Follow up: Response: No adverse reaction; Marked relief of symptoms pf1 18:46 Not Given (Patient Refused): Ondansetron PO 4 mg PO once cm10 Disposition Summary: 10/19/22 18:46 Discharge Ordered Location: Home cp Problem: new cp Symptoms: have improved cp Condition: Stable cp Diagnosis - Cough cp - Nausea with vomiting, unspecified cp - Acute pharyngitis, unspecified cp Followup: cp - With: Private Physician - When: 2 - 3 days - Reason: Recheck today's complaints Discharge Instructions: - Discharge Summary Sheet cp - Nausea and Vomiting, Adult cp - Sore Throat cp - Cool Mist Vaporizer cp - How to Use a Nebulizer, Adult cp - Cough, Adult cp Forms: - Medication Reconciliation Form cp - Thank You Letter cp - Antibiotic Education cp - Prescription Opioid Use cp - Patient Portal Instructions.htm cp Prescriptions: - NEBULIZER - nebulize 1 ampule by NEBULIZATION route 4 times per day As needed; 1 unit; cp Refills: 0, Product Selection Permitted - ipratropium-albuterol 0.5 mg-3 mg(2.5 mg base)/3 mL Inhalation Solution for Nebulization - nebulize 3 milliliter by INHALATION route every 6 hours As needed; 1 Pack; cp Refills: 0, Product Selection Permitted - Zofran 4 mg Oral Tablet - take 1 tablet by ORAL route every 12 hours As needed; 20 tablet; Refills: 0, cp Product Selection Permitted - Zithromax Z-Stevenson 250 mg Oral Tablet - take 1 tablet by ORAL route as directed for 5 days Day 1 - take two (2) tablets cp one time. Day 2, 3, 4 , 5 take one (1) tablet once daily.; 6 tablet; Refills: 0, Product Selection Permitted Signatures: Dispatcher [employer] [facility] Nigel Oliver PA PA cp Peltier, Brian, RN RN bp Jaimie Reyes RN RN cm10 Tiffany Mills RN pf1
--- NOTE | 2022-10-19 18:47 | ER ---
Nurse's Notes [facility] Name: Fany Meza Age: 52 yrs Sex: Female : 1970 Arrival Date: 10/19/2022 Time: 16:53 Bed 11 Private MD: Diagnosis: Cough;Nausea with vomiting, unspecified;Acute pharyngitis, unspecified Presentation: 10/19 17:47 Chief complaint: Patient states: COUGH AND VOMITING x3 DAYS. SEEN AT , DX WITH bp BRONCHITIS, NO RELIEF WITH PRESCRIBED MEDS. Coronavirus screen: At this time, the client does not indicate any symptoms associated with coronavirus-19. Ebola Screen: No symptoms or risks identified at this time. Initial Sepsis Screen: Does the patient meet any 2 criteria? No. Patient's initial sepsis screen is negative. Does the patient have a suspected source of infection? No. Patient's initial sepsis screen is negative. Risk Assessment: Do you want to hurt yourself or someone else? Patient reports no desire to harm self or others. Note NEGATIVE COVID AND FLU AT . Onset of symptoms is unknown. 17:47 Method Of Arrival: Ambulatory bp 17:47 Acuity: SHARAN 3 bp Triage Assessment: 17:48 General: Appears uncomfortable, ill, Behavior is calm, cooperative, appropriate for bp age. Pain: Complains of pain in head. EENT: Reports nasal congestion. Neuro: No deficits noted. Cardiovascular: No deficits noted. Respiratory: Reports cough that is. GI: No signs and/or symptoms were reported involving the gastrointestinal system. : No signs and/or symptoms were reported regarding the genitourinary system. Derm: No deficits noted. Musculoskeletal: No deficits noted. Historical: - Allergies: 17:48 No Known Allergies; bp - Home Meds: 17:48 amlodipine 5 mg tab 1 tab once daily [Active]; bp - PMHx: 17:48 cervical cancer; Hep C , in remission; Hypertensive disorder; bp - PSHx: 17:48 neck; section; bp - Immunization history:: Adult Immunizations up to date. - Social history:: Smoking status: Patient reports the use of cigarette tobacco products, unknown amount. Screenin:00 [facility] ED Fall Risk Assessment (Adult) History of falling in the last 3 months, pf1 including since admission No falls in past 3 months (0 pts) Confusion or Disorientation No (0 pts) Intoxicated or Sedated No (0 pts) Impaired Gait No (0 pts) Mobility Assist Device Used No (0 pt) Altered Elimination No (0 pt) Score/Fall Risk Level 0 - 2 = Low Risk Oriented to surroundings, Maintained a safe environment, Educated pt \T\ family on fall prevention, incl call for assistance when getting out of bed, Assessed \T\ reinforced patient's understanding of fall precautions, Provided non-skid footwear, Hourly rounding (assess needs \T\ fall precautionary measures) done, Used ambulatory aids as needed (educated on \T\ assisted with), Used gait belt as appropriate. Abuse screen: Denies threats or abuse. Nutritional screening: No deficits noted. Tuberculosis screening: No symptoms or risk factors identified. Assessment: 19:27 Reassessment: See triage assessment. cm10 19:27 Respiratory: Airway Respiratory effort is even, unlabored, Respiratory pattern is cm10 regular, symmetrical, Breath sounds are clear. EENT: Throat is reddened. Vital Signs: 17:47 BP 131 / 92; Pulse 73; Resp 16; Temp 97.7; Pulse Ox 95% ; bp ED Course: 17:30 Patient arrived in ED. mr 17:35 Nigel Oliver PA is PHCP. cp 17:35 Nigel Knight MD is Attending Physician. cp 17:48 Triage completed. bp 17:49 Arm band placed on. bp 18:15 XRAY Chest Pa And Lat (2 Views) In Process Unspecified. EDMS 18:23 Jaimie Reyes, RN is Primary Nurse. cm10 19:00 Patient has correct armband on for positive identification. Bed in low position. Call pf1 light in reach. 19:25 No provider procedures requiring assistance completed. Patient did not have IV access pf1 during this emergency room visit. 19:27 Provided Education on: NA. cm10 Administered Medications: 18:44 Drug: DuoNeb Nebulize (2.5 mg - 0.5 mg) 3 ml Route: Nebulizer; cm10 19:26 Follow up: Response: No adverse reaction; Marked relief of symptoms pf1 18:44 Drug: Tessalon Perle PO 200 mg Route: PO; cm10 19:26 Follow up: Response: No adverse reaction; Marked relief of symptoms pf1 18:46 Not Given (Patient Refused): Ondansetron PO 4 mg PO once cm10 Medication: 19:27 VIS not applicable for this client. pf1 Outcome: 18:46 Discharge ordered by . cp 19:26 Discharged to home ambulatory. pf1 19:26 Condition: improved 19:26 Discharge instructions given to patient, Instructed on discharge instructions, follow up and referral plans. Demonstrated understanding of instructions, follow-up care, medications, Prescriptions given X 4. 19:27 Patient left the ED. cm10 Signatures: Dispatcher [employer] [facility] Christina Cook Nigel Mccoy, PA PA Roger Clayton, SCOTTY RN Tiffany Cerna RN RN pf1 Jaimie Reyes RN RN cm10 Corrections: (The following items were deleted from the chart) 18:46 18:44 Ondansetron PO 4 mg PO cm10 cm10
[2022-10-19] MEDS ORDERED: ONDANSETRON 4 MG (ODT) TAB ONE (18:53)
[2022-10-19 19:50] VITALS: BP 131/92; TEMP 97.7; O2SAT 95
== END 2022-10-19 19:27 | disposition home or self-care (01) ==
LOC: ER 16:53
DX: R05.9 Cough, unspecified (principal); R11.2 Nausea with vomiting, unspecified; J02.9 Acute pharyngitis, unspecified; I10 Essential (primary) hypertension; F17.210 Nicotine dependence, cigarettes, uncomplicated
CPT/HCPCS: 71046; 94640; 99284; Q0162; J7613; J7644

== ENCOUNTER 2022-11-16 15:07 | Emergency (ER) | payer OTHER ==
--- OUTSIDE RECORDS SUMMARY | 2022-11-16 15:25 | XMS REPORT | Continuity of Care Document ---
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 [facility] ([employer]) 00:00: 04:59 [facility] 5-325 mg 00 :00 every 6 l per tablet (six) hours as needed for moderate pain or severe pain for up to 2 days .acute pain. Max Daily Amount: 4 tablets HYDROcodone 2021-0 No 1{tbl} Q6H Take 1 [facility] -acetaminop 6-23 06-[address] [facility] ([employer]) 00:00: 04:59 [facility] 5-325 mg 00 :00 every 6 l per tablet (six) hours as needed for moderate pain or severe pain for up to 2 days .acute pain. Max Daily Amount: 4 tablets HYDROcodone 2021-0 No [id number] 1{tbl} Q6H Take 1 [facility] -acetaminop 6-21 06-[address] [facility] ([employer]) 00:00: 00:00 mouth [facility] 5-325 mg 00 :00 every 6 l per tablet (six) hours as needed for moderate pain or severe pain for up to 2 days .acute pain. Max Daily Amount: 4 tablets HYDROcodone 2022-0 2021- No [id number] 1{tbl} Q6H Take 1 [facility] -acetaminop 6-21 06-[address] [facility] ([employer]) 00:00: 00:00 mouth [facility] 5-325 mg 00 :00 every 6 l per tablet (six) hours as needed for moderate pain or severe pain for up to 2 days .acute pain. Max Daily Amount: 4 tablets HYDROcodone 2-0 2021- No [id number] 1{tbl} Q6H Take 1 [facility] -acetaminop 6-21 06-[address] [facility] ([employer]) 00:00: 00:00 mouth [facility]-325 mg 00 :00 every 6 l per tablet (six) hours as needed for moderate pain or severe pain for up to 2 days .acute pain. Max Daily Amount: 4 tablets HYDROcodone 2-0 2021- No [id number] 1{tbl} Q6H Take 1 [facility] -acetaminop 6-21 06-[address] [facility] ([employer]) 00:00: 00:00 mouth [facility] 5-325 mg 00 :00 every 6 l per tablet (six) hours as needed for moderate pain or severe pain for up to 2 days .acute pain. Max Daily Amount: 4 tablets HYDROcodone 2022-0 2021- No [id number] 1{tbl} Q6H Take 1 [facility] -acetaminop 6-21 06-[address] [facility] ([employer]) 00:00: 00:00 mouth [facility] 5-325 mg 00 :00 every 6 l per tablet (six) hours as needed for moderate pain or severe pain for up to 2 days .acute pain. Max Daily Amount: 4 tablets HYDROcodone 2022-0 2021- No [id number] 1{tbl} Q6H Take 1 [facility] -acetaminop 6-21 06-[address] [facility] ([employer]) 00:00: 00:00 mouth [facility] 5-325 mg 00 :00 every 6 l per tablet (six) hours as needed for moderate pain or severe pain for up to 2 days .acute pain. Max Daily Amount: 4 tablets HYDROcodone 2-0 2021- No [id number] 1{tbl} Q6H Take 1 [facility] -acetaminop 6-21 -[address] [facility] ([employer]) 00:00: 00:00 mouth [facility] 5-325 mg 00 :00 every 6 l per tablet (six) hours as needed for moderate pain or severe pain for up to 2 days .acute pain. Max Daily Amount: 4 tablets HYDROcodone 2021-0 2021- No [id number] 1{tbl} Q6H Take 1 [facility] -acetaminop 6-21 -[address] [facility] ([employer]) 00:00: 00:00 mouth [facility] 5-325 mg 00 :00 every 6 l per tablet (six) hours as needed for moderate pain or severe pain for up to 2 days .acute pain. Max Daily Amount: 4 tablets HYDROcodone 2021-0 2021- No [id number] 1{tbl} Q6H Take 1 [facility] -acetaminop 6-21 -[address] [facility] ([employer]) 00:00: 00:00 mouth [facility] 5-325 mg 00 :00 every 6 l per tablet (six) hours as needed for moderate pain or severe pain for up to 2 days .acute pain. Max Daily Amount: 4 tablets HYDROcodone 2-0 2021- No [id number] 1{tbl} Q6H Take 1 [facility] -acetaminop 6-21 -[address] [facility] ([employer]) 00:00: 00:00 mouth [facility] 5-325 mg 00 :00 every 6 l per tablet (six) hours as needed for moderate pain or severe pain for up to 2 days .acute pain. Max Daily Amount: 4 tablets HYDROcodone 2-0 2021- No [id number] 1{tbl} Q6H Take 1 [facility] -acetaminop 6-21 06-[address] [facility] ([employer]) 00:00: 00:00 mouth [facility] 5-325 mg 00 :00 every 6 l per tablet (six) hours as needed for moderate pain or severe pain for up to 2 days .acute pain. Max Daily Amount: 4 tablets HYDROcodone 2022-0 2021- No 1{tbl} Q6H Take 1 [facility] -acetaminop 6-21 06-[address] [facility] ([employer]) 00:00: 00:00 mouth [facility] 5-325 mg 00 :00 every 6 l per tablet (six) hours as needed for moderate pain or severe pain for up to 2 days .acute pain. Max Daily Amount: 4 tablets HYDROcodone 2021-0 2021- No 1{tbl} Q6H Take 1 [facility] -acetaminop 6-21 06-[address] [facility] ([employer]) 00:00: 00:00 mouth [facility] 5-325 mg 00 :00 every 6 l per tablet (six) hours as needed for moderate pain or severe pain for up to 2 days .acute pain. Max Daily Amount: 4 tablets HYDROcodone 2021-0 2021- 1{tbl} Q6H Take 1 [facility] -acetaminop 6-21 06-[address] [facility] ([employer]) 00:00: 00:00 [facility] 5-325 mg 00 :00 every 6 l per tablet (six) hours as needed for moderate pain or severe pain for up to 2 days .acute pain. Max Daily Amount: 4 tablets HYDROcodone 2021-0 2021- 1{tbl} Q6H Take 1 [facility] -acetaminop 6-21 06-[address] [place] ([employer]) 00:00: 00:00 mouth [facility] 5-325 mg 00 :00 every 6 l per tablet (six) hours as needed for moderate pain or severe pain for up to 2 days .acute pain. Max Daily Amount: 4 tablets HYDROcodone 2021-0 2021- No 1{tbl} Q6H Take 1 [facility] -acetaminop 6-21 06-[address] [facility] ([employer]) 00:00: 00:00 [facility] 5-325 mg 00 :00 every 6 l per tablet (six) hours as needed for moderate pain or severe pain for up to 2 days .acute pain. Max Daily Amount: 4 tablets HYDROcodone 2021-0 2021- No 1{tbl} Q6H Take 1 [facility] -acetaminop 6-21 06-[address] [place] ([employer]) 00:00: 00:00 [facility] 5-325 mg 00 :00 every 6 l per tablet (six) hours as needed for moderate pain or severe pain for up to 2 days .acute pain. Max Daily Amount: 4 tablets HYDROcodone 2-0 2021- No [id number] 1{tbl} Q6H Take 1 [facility] -acetaminop 6-21 06-[address] [facility] ([employer]) 00:00: 00:00 mouth [facility] 5-325 mg 00 :00 every 6 l per tablet (six) hours as needed for moderate pain or severe pain for up to 2 days .acute pain. Max Daily Amount: 4 tablets HYDROcodone 2-0 2021- No [id number] 1{tbl} Q6H Take 1 [facility] -acetaminop 6-21 06-[address] [facility] ([employer]) 00:00: 00:00 mouth [facility] 5-325 mg 00 :00 every 6 l per tablet (six) hours as needed for moderate pain or severe pain for up to 2 days .acute pain. Max Daily Amount: 4 tablets HYDROcodone 2-0 2021- No [id number] 1{tbl} Q6H Take 1 [facility] -acetaminop 6-21 06-[address] [facility] ([employer]) 00:00: 00:00 [facility] 5-325 mg 00 :00 every 6 l per tablet (six) hours as needed for moderate pain or severe pain for up to 2 days .acute pain. Max Daily Amount: 4 tablets HYDROcodone 2-0 2021- No [id number] 1{tbl} Q6H Take 1 [facility] -acetaminop 6-21 06-[address] [facility] ([employer]) 00:00: 00:00 mouth [facility] 5-325 mg 00 :00 every 6 l per tablet (six) hours as needed for moderate pain or severe pain for up to 2 days .acute pain. Max Daily Amount: 4 tablets HYDROcodone 2022-0 2021- No [id number] 1{tbl} Q6H Take 1 [facility] -acetaminop 6-21 06-[address] [facility] ([employer]) 00:00: 00:00 mouth [facility] 5-325 mg 00 :00 every 6 l per tablet (six) hours as needed for moderate pain or severe pain for up to 2 days .acute pain. Max Daily Amount: 4 tablets HYDROcodone 2-0 2021- No [id number] 1{tbl} Q6H Take 1 [facility] -acetaminop 6-21 06-[address] [facility] ([employer]) 00:00: 00:00 mouth [facility] 5-325 mg 00 :00 every 6 l per tablet (six) hours as needed for moderate pain or severe pain for up to 2 days .acute pain. Max Daily Amount: 4 tablets HYDROcodone 2021-0 2021- No [id number] 1{tbl} Q6H Take 1 [facility] -acetaminop 6-21 06-[address] [facility] ([employer]) 00:00: 00:00 mouth [facility] 5-325 mg 00 :00 every 6 l per tablet (six) hours as needed for moderate pain or severe pain for up to 2 days .acute pain. Max Daily Amount: 4 tablets HYDROcodone 2-0 2021- No [id number] 1{tbl} Q6H Take 1 [facility] -acetaminop 6-21 06-[address] [facility] ([employer]) 00:00: 00:00 mouth [facility] 5-325 mg 00 :00 every 6 l per tablet (six) hours as needed for moderate pain or severe pain for up to 2 days .acute pain. Max Daily Amount: 4 tablets HYDROcodone 2021-0 2021- No 1{tbl} Q6H Take 1 [facility] -acetaminop 6-21 06-[address] [facility] ([employer]) 00:00: 00:00 mouth [facility] 5-325 mg 00 :00 every 6 l per tablet (six) hours as needed for moderate pain or severe pain for up to 2 days .acute pain. Max Daily Amount: 4 tablets HYDROcodone 2-0 2021- No 1{tbl} Q6H Take 1 [facility] -acetaminop 6-21 06-[address] [facility] ([employer]) 00:00: 00:00 mouth [facility] 5-325 mg 00 :00 every 6 l per tablet (six) hours as needed for moderate pain or severe pain for up to 2 days .acute pain. Max Daily Amount: 4 tablets HYDROcodone 2-0 2021- No 1{tbl} Q6H Take 1 [facility] -acetaminop 6-21 06-[address] [facility] ([employer]) 00:00: 00:00 mouth [facility] 5-325 mg 00 :00 every 6 l per tablet (six) hours as needed for moderate pain or severe pain for up to 2 days .acute pain. Max Daily Amount: 4 tablets HYDROcodone 2022-0 2022- No [id number] 1{tbl} Q6H Take 1 [facility] -acetaminop 6-21 06-[address] [facility] ([employer]) 00:00: 00:00 mouth [facility] 5-325 mg 00 :00 every 6 l per tablet (six) hours as needed for moderate pain or severe pain for up to 2 days .acute pain. Max Daily Amount: 4 tablets HYDROcodone 2022-0 2022- No [id number] 1{tbl} Q6H Take 1 [facility] -acetaminop 6-21 -[address] [facility] ([employer]) 00:00: 00:00 [facility] 5-325 mg [...] DAILY WITH MEALS meclizine 2021- No 25mg Q.[id number] Take 1 [facility] ([facility]) 5-17 06-10 [id number] tablet (25 st 25 mg 00:00: 00:00 3D mg total) [facility] tablet 00 :00 by mouth 3 l (three) times a day as needed for dizziness for up to 30 days. meclizine 2021- No 25mg Q.[id number] Take 1 [facility] ([facility]) 517 06-10 [id number] tablet (25 st 25 mg 00:00: 00:00 3D mg total) [facility] a tablet 00 :00 by mouth 3 l (three) times a day as needed for dizziness for up to 30 days. meclizine 0 2021- No 25mg Q.[id number] Take 1 [facility] ([facility]) 517 06-10 [id number] tablet (25 st 25 mg 00:00: 00:00 3D mg total) Hospit a tablet 00 :00 by mouth 3 l (three) times a day as needed for dizziness for up to 30 days. meclizine 2021-2021- No 25mg Q.[id number] Take 1 [facility] ([facility]) 517 -10 [id number] tablet (25 st 25 mg 00:00: 00:00 3D mg total) [facility] a tablet 00 :00 by mouth 3 l (three) times a day as needed for dizziness for up to 30 days. meclizine 2021- No 25mg Q.[id number] Take 1 [facility] ([facility]) 17 -10 [id number] tablet (25 st 25 mg 00:00: 00:00 3D mg total) Hospit a tablet 00 :00 by mouth 3 l (three) times a day as needed for dizziness for up to 30 days. meclizine 0 202- No 25mg Q.[id number] Take 1 [facility] ([facility]) 5-17 06-10 [id number] tablet (25 st 25 mg 00:00: 00:00 3D mg total) Hospit a tablet 00 :00 by mouth 3 l (three) times a day as needed for dizziness for up to 30 days. meclizine 2021-0 2021- No 25mg Q.[id number] Take 1 [facility] ([facility]) 5-17 06-10 [id number] tablet (25 st 25 mg 00:00: 00:00 3D mg total) Hospit a tablet 00 :00 by mouth 3 l (three) times a day as needed for dizziness for up to 30 days. meclizine 2022-0 2022- No 25mg Q.[id number] Take 1 [facility] ([facility]) 517 -10 [id number] tablet (25 st 25 mg 00:00: 00:00 3D mg total) [facility] a tablet 00 :00 by mouth 3 l (three) times a day as needed for dizziness for up to 30 days. meclizine 2021-0 2022- No 25mg Q.[id number] Take 1 [facility] ([facility]) 17 -10 [id number] tablet (25 st 25 mg 00:00: 00:00 3D mg total) Hospit a tablet 00 :00 by mouth 3 l (three) times a day as needed for dizziness for up to 30 days. meclizine 2021-0 2021- No 25mg Q.[id number] Take 1 [facility] ([facility]) 08-26-10 [id number] tablet (25 st 25 mg 00:00: 00:00 3D mg total) [facility] a tablet 00 :00 by mouth 3 l (three) times a day as needed for dizziness for up to 30 days. pregabalin 2022-0 2022- No 50mg Q.5D Take 1 [facility] ([facility]) 50 08-14-[address] [facility] capsule 00:00: 00:00 (50 mg [facility] 00 :00 total) by l mouth 2 (two) times a day for 60 days. pregabalin 2022-0 2022- No 50mg Q.5D Take 1 [facility] (Lyrica) 50 - 06-[address] [facility] capsule 00:00: 00:00 (50 mg [facility] 00 :00 total) by l mouth 2 (two) times a day for 60 days. pregabalin 2022-0 2022- No 50mg Q.5D Take 1 [facility] (Lyrica) 50 - 06-[address] [facility] capsule 00:00: 00:00 [...] a day for 60 days. doxycycline 2021-0 2021- No 100mg Take 100 [...] (two) l times a day. doxycycline 2022-0 2- No 100mg Take 100 [facility] (VIBRAMYCIN [...] (two) [place] [id number] 1{tbl} Q6H Take 1-2 [facility] en-codeine 4-27 05-[address] (TYLENOL 00:00: 04:59 mouth [facility] WITH 00 :00 every 6 l CODEINE #3) (six) 300-30 mg hours as per tablet needed for moderate pain for up to 5 days .[place]. [place] [id number] 1{tbl} Q6H Take 1-2 [facility] en-codeine 4-27 [...] 5 days .acute pain. amoxicillin 2021- No [id number] 500mg Q.5D Take 1 [facility] ([facility]) 07-[address] 500 MG 00:00: 04:59 (500 mg [facility]osp[facility] tablet 00 :00 total) by l mouth 2 (two) times a day for 7 days. amoxicillin 2021- No [id number] 500mg Q.5D Take 1 [facility] ([facility]) 07-[address] 500 MG 00:00: 04:59 (500 mg [facility]osp[facility] tablet 00 :00 total) by l mouth 2 (two) times a day for 7 days. amoxicillin 2021- No [id number] 500mg Q.5D Take 1 [facility] ([facility]) 07-[address] 500 MG 00:00: 04:59 (500 mg [facility]osp[facility] tablet 00 :00 total) by l mouth 2 (two) times a day for 7 days. amoxicillin 2021- No [id number] 500mg Q.5D Take 1 [facility] ([facility]) 07-[address] 500 MG 00:00: 04:59 (500 mg [facility]osp[facility] tablet 00 :00 total) by l mouth 2 (two) times a day for 7 days. amoxicillin 2021- No [id number] 500mg Q.5D Take 1 [facility] ([facility]) 07-[address] 500 MG 00:00: 04:59 (500 mg [facility]osp[facility] tablet 00 :00 total) by l mouth 2 (two) times a day for 7 days. amoxicillin 2021- No [id number] 500mg Q.5D Take 1 [facility] ([facility]) 07-[address] 500 MG 00:00: 04:59 (500 mg [facility]osp[facility] tablet 00 :00 total) by l mouth 2 (two) times a day for 7 days. amoxicillin 2021- No [id number] 500mg Q.5D Take 1 [facility] ([facility]) 07-[address] 500 MG 00:00: 04:59 (500 mg [facility]osp[facility] tablet 00 :00 total) by l mouth 2 (two) times a day for 7 days. amoxicillin 2021- No [id number] 500mg Q.5D Take 1 [facility] ([facility]) 07-24 [...] 2021- No 1{patch Q24H Place 1 [facility] (Nicoderm 4-13 05-14 } patch on st [facility]) 21 00:00: 04:59 the skin [facility] a mg/24 hr 00 :00 daily for l 30 days. nicotine 2021-2021- No 1{patch Q24H Place 1 [facility] (Nicoderm 4-13 05-14 } patch on st [...] Q8H Take 1 [facility] ([facility]) 3- capsule st 100 MG 00:00: 04:59 (100 [...] pain for up to 30 days. benzonatate 2021-2021- No 100mg Q8H Take 1 [facility] [...] 8 (eight) hours for 30 days. amoxicillin 2021-2021- No [id number] 500mg Q.5D Take 1 [facility] ([facility]) 06-[address] 500 MG 00:00: 04:59 (500 mg [facility]osp[facility] tablet 00 :00 total) by l mouth in the morning and 1 tablet (500 mg total) before bedtime. Do all this for 7 days. amoxicillin 2021-2021- No [id number] 500mg Q.5D Take 1 [facility] ([facility]) 06-[address] 500 MG 00:00: 04:59 (500 mg [facility]osp[facility] tablet 00 :00 total) by l mouth in the morning and 1 tablet (500 mg total) before bedtime. Do all this for 7 days. amoxicillin No [id number] 500mg Q.5D Take 1 [facility] ([facility]) 06-[address] 500 MG 00:00: 04:59 (500 mg [facility]osp[facility] tablet 00 :00 total) by l mouth in the morning and 1 tablet (500 mg total) before bedtime. Do all this for 7 days. amoxicillin No [id number] 500mg Q.5D Take 1 [facility] ([facility]) 06-[address] 500 MG 00:00: 04:59 (500 mg [facility]osp[facility] tablet 00 :00 total) by l mouth in the morning and 1 tablet (500 mg total) before bedtime. Do all this for 7 days. amoxicillin No [id number] 500mg Q.5D Take 1 [facility] ([facility]) 06-[address] 500 MG 00:00: 04:59 (500 mg [facility]osp[facility] tablet 00 :00 total) by l mouth in the morning and 1 tablet (500 mg total) before bedtime. Do all this for 7 days. amoxicillin No [id number] 500mg Q.5D Take 1 [facility] ([facility]) 06-[address] 500 MG 00:00: 04:59 (500 mg [facility]osp[facility] tablet 00 :00 total) by l mouth in the morning and 1 tablet (500 mg total) before bedtime. Do all this for 7 days. amoxicillin No [id number] 500mg Q.5D Take 1 [facility] ([facility]) 06-[address] 500 MG 00:00: 04:59 (500 mg [facility]osp[facility] tablet 00 :00 total) by l mouth in the morning and 1 tablet (500 mg total) before bedtime. Do all this for 7 days. amoxicillin No [id number] 500mg Q.5D Take 1 [facility] ([facility]OX[facility]) 06-18 [...] l amLODIPine 2022-0 2022- No [facility]05 st 2.5 mg 00:00: 00:00 [facility]osp[facility] tablet 00 :00 l amLODIPine 2022-0 2022- No [facility] 2-[facility] 04-05 st 2.5 mg 00:00: 00:00 [facility]osp[facility] tablet 00 :00 l amLODIPine 2022-0 2022- No [facility] 2-[facility] 04-05 st 2.5 mg 00:00: 00:00 [facility]osp[facility] tablet 00 :00 l amLODIPine 2022-0 2022- No [facility] 2-[facility] 04-05 st 2.5 mg 00:00: 00:00 [facility]osp[facility] tablet 00 :00 l amLODIPine 2022-0 2022- No [facility] 2- 04-05 st 2.5 mg 00:00: 00:00 [facility]osp[facility] tablet 00 :00 l amLODIPine 2022-0 2022- No [facility] 2- 04-05 st 2.5 mg 00:00: 00:00 [facility]osp[facility] tablet 00 :00 l amLODIPine 2022-0 2022- No [facility] 2- 04-05 st 2.5 mg 00:00: 00:00 [facility]ospita tablet 00 :00 l HYDROcodone 2022-0 2- No [id number] 1{tbl} Q6H Take 1 [facility] -acetaminop 05-04 tablet by [employer]) 00:00: 05:59 mouth [facility] 5-325 mg 00 :00 every 6 l per tablet (six) hours as needed for moderate pain for up to 5 days .acute pain. Max Daily Amount: 4 tablets HYDROcodone 2022-0 2022- [place] [id number] 1{tbl} Q6H Take 1 [facility] -acetaminop 05-04 tablet by [facility] ([employer]) 00:00: 05:59 mouth [facility] 5-325 mg 00 :00 every 6 l per tablet (six) hours as needed for moderate pain for up to 5 days .acute pain. Max Daily Amount: 4 tablets HYDROcodone 2021-0 1{tbl} Q6H Take 1 [facility] -acetaminop 05-[address] [facility] ([facility]) 00:00: 05:59 mouth [facility] 5-325 mg 00 :00 every 6 l per tablet (six) hours as needed for moderate pain for up to 5 days .acute pain. Max Daily Amount: 4 tablets HYDROcodone 2021-0 1{tbl} Q6H Take 1 [facility] -acetaminop 05-[address] [facility] ([facility] [place]) 00:00: 05:59 mouth [facility] 5-325 mg 00 :00 every 6 l per tablet (six) hours as needed for moderate pain for up to 5 days .acute pain. Max Daily Amount: 4 tablets HYDROcodone 2021- 1{tbl} Q6H Take 1 [facility] -acetaminop 05-[address] [facility] ([facility] [place]) 00:00: 05:59 mouth [facility] 5-325 mg 00 :00 every 6 l per tablet (six) hours as needed for moderate pain for up to 5 days .acute pain. Max Daily Amount: 4 tablets HYDROcodone 2021- 1{tbl} Q6H Take 1 [facility] -acetaminop 05-[address] [facility] ([facility]) 00:00: 05:59 mouth [facility] 5-325 mg [...] to 15 days .acute pain. acetaminoph 2021- 1{tbl} Q6H Take 1-2 [facility] en-codeine 05-[address] (TYLENOL 00:00: 00:00 mouth [facility] WITH 00 :00 every 6 l CODEINE #3) (six) 300-30 mg hours as per tablet needed for moderate pain for up to 15 days .[place]. [place] [id number] 1{tbl} Q6H Take 1-2 [facility] en-codeine 05-[address] (TYLENOL 00:00: 00:00 mouth [facility] WITH 00 :00 every 6 l CODEINE #3) (six) 300-30 mg hours as per tablet needed for moderate pain for up to 15 days .[place]. [place] [id number] 1{tbl} Q6H Take 1-2 [facility] en-codeine 05-[address] (TYLENOL 00:00: 00:00 mouth [facility] WITH 00 :00 every 6 l CODEINE #3) (six) 300-30 mg hours as per tablet needed for moderate pain for up to 15 days .[place]. [place] [id number] 1{tbl} Q6H Take 1-2 [facility] en-codeine 05-[address] (TYLENOL 00:00: 00:00 mouth [facility] WITH 00 :00 every 6 l CODEINE #3) (six) 300-30 mg hours as per tablet needed for moderate pain for up to 15 days .[place]. [place] [id number] 1{tbl} Q6H Take 1-2 [facility] en-codeine 05-04 [...] times 5 days. All with food. predniSONE 2021-2021- No 2 PO [facility] [...] for up to 30 [place]. [place] [id number] 1{tbl} Q6H Take 1 [facility] en-codeine 04-[address] (TYLENOL 00:00: 05:59 mouth [facility] WITH 00 :00 every 6 l CODEINE #3) (six) 300-30 mg hours as per tablet needed for severe pain for up to 5 days .[place] [id number] 1{tbl} Q6H Take 1 [facility] en-codeine 04-[address] (TYLENOL 00:00: 05:59 mouth [facility] WITH 00 :00 every 6 l CODEINE #3) (six) 300-30 mg hours as per tablet needed for severe pain for up to 5 days .[place] [id number] 1{tbl} Q6H Take 1 [facility] en-codeine 04-[address] (TYLENOL 00:00: 05:59 mouth [facility] WITH 00 :00 every 6 l CODEINE #3) (six) 300-30 mg hours as per tablet needed for severe pain for up to 5 days .acute pain. acetaminoph [id number] 1{tbl} Q6H Take 1 [facility] en-codeine 04-12 [...] up to 5 days .acute pain. traMADoL [id number] 50mg Q6H Take 1 [facility] (ULTRAM) 50 04-12 tablet (50 s t mg tablet 00:00: 00:00 mg total) Ho spita 00 :00 by mouth l every 6 (six) hours as needed for moderate pain for up to 5 days .acute pain. traMADoL [id number] 50mg Q6H Take 1 [facility] (ULTRAM) 50 04-12 tablet (50 s t mg tablet 00:00: 00:00 mg total) [facility] 00 :00 by mouth l every 6 (six) hours as needed for moderate pain for up to 5 days .acute pain. traMADoL [id number] 50mg Q6H Take 1 [facility] (ULTRAM) 50 04-12 tablet (50 s t mg tablet 00:00: 00:00 mg total) Ho [facility]ita 00 :00 by mouth l every 6 (six) hours as needed for moderate pain for up to 5 days .acute pain. traMADoL [id number] 50mg Q6H Take 1 [facility] (ULTRAM) [...] No 2.5mg QD Take 1 [facility] ([facility] 04-[address] 2.5 mg 00:00: 00:00 (2.5 [facility] :00 total) by l mouth daily. amLODIPine 2020-04 No 2.5mg QD Take 1 [facility] 2.5 mg 00:00: 00:00 (2.5 [facility] tablet 00 :00 total) by l mouth daily. amLODIPine 2020-04 No 2.5mg QD Take 1 [facility] ([facility]) 04-[address] 2.5 mg 00:00: 00:00 (2.5 [facility] tablet 00 :00 total) by l mouth daily. amLODIPine 2020-04 No 2.5mg QD Take 1 [facility] 2.5 mg 00:00: 00:00 [...] 1 Maria rris (LIORESAL) 9-24 tablet by [facility] 10 mg 00:00: mouth 2 tablet 00 times daily as needed (muscle spasms) STOP cyclobenza kasia (FLEXERIL) 10 mg tablet. baclofen 2020-0 Yes Neck pain 10mg Take 1 Maria rris (LIORESAL) 9-24 tablet by [facility] 10 mg 00:00: mouth 2 tablet 00 times daily as needed (muscle spasms) STOP cyclobenza kasia (FLEXERIL) 10 mg tablet. baclofen 2020-0 Yes Neck pain 10mg Take 1 Maria rris (LIORESAL) 9-24 tablet by [facility] 10 mg 00:00: mouth 2 tablet 00 times daily as needed (muscle spasms) STOP cyclobenza kasia (FLEXERIL) 10 mg tablet. baclofen 2020-0 Yes Neck pain 10mg Take 1 Maria rris (LIORESAL) 9-24 tablet by [facility] 10 mg 00:00: mouth 2 tablet 00 times daily as needed (muscle spasms) STOP cyclobenza kasia (FLEXERIL) 10 mg tablet. baclofen 2020-0 Yes Neck pain 10mg Take 1 Maria rris (LIORESAL) 9-24 tablet by [facility] 10 mg 00:00: mouth 2 tablet 00 times daily as needed (muscle spasms) STOP cyclob[facility] kasia (FLEXERIL) 10 mg tablet. baclofen 2020-0 Yes Neck pain 10mg Take 1 Maria rris (LIORESAL) 9-24 tablet by [facility] 10 mg 00:00: mouth 2 tablet 00 times daily as needed (muscle spasms) STOP cyclobenza kasia (FLEXERIL) 10 mg tablet. baclofen 2020-0 Yes Neck pain 10mg Take 1 Maria rris (LIORESAL) 9-24 tablet by [facility] 10 mg 00:00: mouth 2 tablet 00 times daily as needed (muscle spasms) STOP cyclobenza kasia (FLEXERIL) 10 mg tablet. baclofen 2020-0 Yes Neck pain 10mg Take 1 Maria rris (LIORESAL) 9-24 tablet by [facility] 10 mg 00:00: mouth 2 tablet 00 times daily as needed (muscle spasms) STOP cyclobenza kasia (FLEXERIL) 10 mg tablet. baclofen 2020-0 Yes Neck pain 10mg Take 1 Maria rris (LIORESAL) 9-24 tablet by [facility] 10 mg 00:00: mouth 2 tablet 00 times daily as needed (muscle spasms) STOP cyclobenza kasia (FLEXERIL) 10 mg tablet. baclofen 2020-0 Yes Neck pain 10mg Take 1 Maria rris (LIORESAL) 9-24 tablet by [facility] 10 mg 00:00: mouth 2 tablet 00 times daily as needed (muscle spasms) STOP cyclobenza kasia (FLEXERIL) 10 mg tablet. baclofen 2020-0 Yes Neck pain 10mg Take 1 Maria rris (LIORESAL) 9-24 tablet by [facility] 10 mg 00:00: mouth 2 tablet 00 times daily as needed (muscle spasms) STOP cyclobenza kasia (FLEXERIL) 10 mg tablet. baclofen 2020-0 Yes Neck pain 10mg Take 1 Maria rris (LIORESAL) 9-24 tablet by [facility] 10 mg 00:00: mouth 2 tablet [...] daily. varenicline 2020-0 Yes Encounter Start Timoteo (INOCENCIOTIX) 1 09-11 for smoking taking Health mg [...] daily. varenicline 2020-0 Yes Encounter Start Timoteo (INOCENCIOTIX) 1 09-11 for smoking taking Health mg [...] 1 Maria rris azole-trime 9-24 tablet by [facility] thoprim 08:09: mouth 2 (BACTRIM 11 times DS) 800-160 daily. mg per tablet MULTIVITAMI 2019-0 Yes Take by [facility] ris N (DAILY 9-24 mouth. Health VITAMIN OR) 08:09: 11 sulfamethox 2019-0 Yes 1{tbl} Q.5D Take 1 Maria rris azole-trime 9-24 tablet by [facility] thoprim 08:09: mouth 2 (BACTRIM 11 times DS) 800-160 daily. mg per tablet MULTIVITAMI 2019-0 Yes Take by [facility] ris N (DAILY 9-24 mouth. Health VITAMIN OR) 08:09: 11 sulfamethox 2019-0 Yes 1{tbl} Q.5D Take 1 Maria rris azole-trime 9-24 tablet by [facility] thoprim 08:09: mouth 2 (BACTRIM 11 times DS) 800-160 daily. mg per tablet MULTIVITAMI 2019-0 Yes Take by [facility] ris N (DAILY 9-24 mouth. Health VITAMIN OR) 08:09: 11 sulfamethox 2019-0 Yes 1{tbl} Q.5D Take 1 Maria rris azole-trime 9-24 tablet by [facility] thoprim 08:09: mouth 2 (BACTRIM 11 times DS) 800-160 daily. mg per tablet MULTIVITAMI 2019-0 Yes Take by [facility] ris N (DAILY 9-24 mouth. Health VITAMIN OR) 08:09: 11 sulfamethox 2019-0 Yes 1{tbl} Q.5D Take 1 Maria rris azole-trime 9-24 tablet by [facility] thoprim 08:09: mouth 2 (BACTRIM 11 times DS) 800-160 daily. mg per tablet MULTIVITAMI 2019-0 Yes Take by [facility] ris N (DAILY 9-24 mouth. Health VITAMIN OR) 08:09: 11 sulfamethox 2019-0 Yes 1{tbl} Q.5D Take 1 Maria rris azole-trime 9-24 tablet by [facility] thoprim 08:09: mouth 2 (BACTRIM 11 times DS) 800-160 daily. mg per tablet MULTIVITAMI 2019-0 Yes Take by [facility] ris N (DAILY 9-24 mouth. Health VITAMIN OR) 08:09: 11 sulfamethox 2019-0 Yes 1{tbl} Q.5D Take 1 Maria rris azole-trime 9-24 tablet by [facility] thoprim 08:09: mouth 2 (BACTRIM 11 times DS) 800-160 daily. mg per tablet MULTIVITAMI 2019-0 Yes Take by [facility] ris N (DAILY 9-24 mouth. Health VITAMIN OR) 08:09: 11 sulfamethox 2019-0 Yes 1{tbl} Q.5D Take 1 Maria rris azole-trime 9-24 tablet by [facility] mouth 2 [...] times daily and after each bath.. silver 2015-0 Yes Desquamated Apply Tom ris sulfADIAZIN 4-29 [...] times daily and after each bath.. silver 2015-0 Yes Desquamated Apply Tom ris sulfADIAZIN 4-29 [...] Date Status Commen ts Source Name Name SHANICEVAX ALEJANDRA 2021-02-[address] 00:00:00 [facility] FLUCELVAX QUAD PF 2021-02-[address] 00:00:00 [facility] FLUCELVAX QUAD PF 2021-02-[address] 00:00:00 [facility] FLUCELVAX QUAD 2021-02-[address] 00:00:00 [facility] FLUCELVAX QUAD 2021-02-[address] 00:00:00 [facility] FLUCELVAX QUAD 2021-02-[address] 00:00:00 [facility] FLUCELVAX QUAD 2021-02-[address] 00:00:00 [facility] FLUCELVAX QUAD 2021-02-[address] 00:00:00 [facility] FLUCELVAX QUAD 2021-02-[address] 00:00:00 [facility] FLUCELVAX QUAD 2021-02-[address] 00:00:00 [facility] FLUCELVAX QUAD 2021-02-[address] 00:00:00 [facility] FLUCELVAX QUAD 2021-02-[address] 00:00:00 [facility] PFIZER COVID-19 MRNA 2020-08-05 Completed Meth odist VACCINATION 00:00:00 [facility] PFIZER COVID-19 MRNA 2020-08-05 Completed [facility] VACCINATION 00:00:00 [facility] PFIZER COVID-19 MRNA 2020-08-05 Completed [facility] VACCINATION 00:00:00 [facility] PFIZER COVID-19 MRNA 2020-08-05 Completed [facility] VACCINATION 00:00:00 [facility] PFIZER COVID-19 MRNA 2020-08-05 Completed [facility] VACCINATION 00:00:00 [facility] PFIZER COVID-19 MRNA 2020-08-05 Completed [facility]ist VACCINATION 00:00:00 [facility] PFIZER COVID-19 MRNA 2020-08-05 Completed [facility]ist VACCINATION 00:00:00 [facility] PFIZER COVID-19 MRNA 2020-08-05 Completed [facility] VACCINATION 00:00:00 [facility] PFIZER COVID-19 MRNA 2020-08-05 Completed [facility]ist VACCINATION 00:00:00 [facility] PFIZER COVID-19 MRNA 2020-08-05 Completed [facility]ist VACCINATION 00:00:00 [facility] PFIZER COVID-19 MRNA 2020-08-05 Completed [facility]ist VACCINATION 00:00:00 [facility] PFIZER COVID-19 MRNA 2020-08-05 Completed [facility] VACCINATION 00:00:00 [facility] PFIZER COVID-19 MRNA 2020-07-08 Completed [facility]ist VACCINATION 00:00:00 [facility] PFIZER COVID-19 MRNA 2020-07-08 Completed [facility]ist VACCINATION 00:00:00 [facility] PFIZER COVID-19 MRNA 2020-07-08 Completed [facility] VACCINATION 00:00:00 [facility] PFIZER COVID-19 MRNA 2020-07-08 Completed [facility] VACCINATION 00:00:00 [facility] PFIZER COVID-19 MRNA 2020-07-08 Completed [facility] VACCINATION 00:00:00 [facility] PFIZER COVID-19 MRNA 2020-07-08 Completed [facility]ist VACCINATION 00:00:00 [facility] PFIZER COVID-19 MRNA 2020-07-08 Completed [facility] VACCINATION 00:00:00 [facility] PFIZER COVID-19 MRNA 2020-07-08 Completed [facility] VACCINATION 00:00:00 [facility] PFIZER COVID-19 MRNA 2020-07-08 Completed [facility] odist VACCINATION 00:00:00 [facility] PFIZER COVID-19 MRNA 2020-07-08 Completed [facility]ist VACCINATION 00:00:00 [facility] PFIZER COVID-19 MRNA 2020-07-08 Completed [facility]ist VACCINATION 00:00:00 [facility] PFIZER COVID-19 MRNA 2020-07-08 Completed [facility] VACCINATION 00:00:00 [facility] Influenza, 2020-03-12 Completed [facility] Vaccine<FLUCELVAX>(M 00:00:00 ulti-Dose) Tdap (Tetanus 2020-03-12 Completed [facility] Toxoid, Reduced 00:00:00 Diphtheria Toxoid And Acellular Pertussis, Absorbed) Influenza, 2020-03-12 Completed [facility] Vaccine<FLUCELVAX>(M 00:00:00 ulti-Dose) Tdap (Tetanus 2020-03-12 Completed [facility] Toxoid, Reduced 00:00:00 Diphtheria Toxoid And [...] And Acellular Pertussis, Absorbed) Influenza, 2020-03-12 Completed [facility] Vaccine<FLUCELVAX>(M 00:00:00 ulti-Dose) Tdap (Tetanus 2020-03-12 Completed [facility] Toxoid, Reduced 00:00:00 Diphtheria Toxoid And Acellular Pertussis, Absorbed) Influenza, 2020-03-12 Completed [facility] Vaccine<FLUCELVAX>(M 00:00:00 ulti-Dose) Tdap (Tetanus 2020-03-12 Completed [facility] Toxoid, Reduced 00:00:00 Diphtheria Toxoid And Acellular Pertussis, Absorbed) Vital Signs Vital Name Observation Time Observation Value Comments Source Systolic blood 2022-02-20 01:13:29 129 mm[Hg] [facility] pressure Diastolic blood 2022-02-20 01:13:29 67 mm[Hg] [facility] pressure Heart rate 2022-02-20 01:13:29 60 /min [facility] Respiratory rate 2022-02-20 01:13:29 18 /min [facility] Oxygen saturation in 2022-02-20 01:13:29 96 /min [facility] Arterial blood by Pulse oximetry Body height 2022-02-19 20:30:00 162.6 cm [facility] Body weight 2022-02-19 20:30:00 79.379 kg [facility] BMI 2022-02-19 20:30:00 30.04 kg/m2 [facility] Body temperature 2022-02-19 20:29:09 36.61 Nydia [facility] pulse rate 2021-12-16 13:21:49 87 /min [facility] blood pressure, 2021-12-16 13:21:49 67 mm[Hg] [facility] blood pressure, 2021-12-16 13:21:49 132 mm[Hg] [facility] Health pulse rate 2020-11-25 14:31:56 70 /min [facility] blood pressure, 2020-11-25 14:31:56 74 mm[Hg] [facility] diastolic Health blood pressure, 2020-11-25 14:31:56 113 mm[Hg] [facility] pulse rate 2020-11-25 13:39:38 70 /min [facility] blood pressure, 2020-11-25 13:39:38 74 mm[Hg] [facility] blood pressure, 2020-11-25 13:39:38 113 mm[Hg] [facility] Procedures Procedure Date / Time Performing Source Performed Clinician CT CHEST WO CONTRAST ABDOMEN WO 2022-02-20 Cristóbal Ovalle CONTRAST PELVIS WO CONTRAST 01:47:08 [facility] ital ECG ED PRELIMINARY INTERPRETATION 2022-02-20 Cristóbal Ovalle 01:34:30 [facility] CBC WITH PLATELET AND DIFFERENTIAL 2022-02-19 Pa Manningist 21:40:00 [facility] COMPREHENSIVE METABOLIC PANEL 2022-02-19 Alee Manning Wi thodist 21:40:00 [facility] HCG QUALITATIVE, SERUM SCREEN 2022-02-19 Alee Manning Wi thodist 21:40:00 Hospital ESTIMATED GFR 2022-02-19 Alee Manning 21:40:00 [facility] ECG 12-LEAD 2022-02-19 Alee Manningist 20:46:22 Hospital URINE CULTURE 2022-02-19 Alee Manning 20:34:00 Hospital URINALYSIS SCREEN AND MICROSCOPY, 2022-02-19 Eulalio Manning WITH REFLEX TO CULTURE 20:34:00 [facility] HEPATITIS B SURFACE ANTIGEN 2022-02-05 Eddie Farris [...] 2022-02-[address] QUANTITATIVE PCR 15:30:00 [facility] HIV 1/2 ANTIGEN/ANTIBODY, FOURTH 2022-02-05 Prasanth, Eddie C. Religious GENERATION, WITH REFLEXES 15:30:00 Hospit al ZZHSV 1 AND 2 SPECIFIC AB IGG 2022-02-05 Eddie Farris Wi thodist 15:30:00 Hospital SURGICAL PATHOLOGY REQUEST 2021-12-26 Esthela Small Wi thodist 18:06:00 Hospital COLONOSCOPY 2021-12-26 Esthela Small Religious 15:44:00 [facility] ESOPHAGOGASTRODUODENOSCOPY (EGD) 2021-12-26 Esthela Small Religious 15:44:00 Hospital COVID-19 QUALITATIVE RT-PCR 2021-12-24 Esthela Small M ethodist 12:41:00 Hospital THINPREP TIS AND HPV MRNA E6/E7 2021-12-18 Eddie Farrisist 18:34:00 [facility] ECG 12-LEAD 2021-11-28 Keith Carroll 15:26:34 [facility] TROPONIN T 2021-11-07 Zeyad Cohen 20:01:00 [facility] COVID-19 QUALITATIVE RT-PCR 2021-11-07 Zeyad Cohen odist 19:09:00 [facility] COVID-19 OMICRON VARIANT 2021-11-[address] QUALITATIVE RT-PCR 19:09:00 [facility] XR CHEST 2 VW 2021-11-07 Zeyad Cohen 18:51:38 [facility] ECG ED PRELIMINARY INTERPRETATION 2021-11-07 Karo Cohen 18:50:27 [facility] COMPREHENSIVE METABOLIC PANEL 2021-11-07 Zeyad Cohen thodist 18:03:00 [facility] TROPONIN T 2021-11-07 Zyead Cohen 18:03:00 [facility] CBC WITH PLATELET AND DIFFERENTIAL 2021-11-07 Ed Cohen 18:03:00 [facility] HCG QUALITATIVE, SERUM SCREEN 2021-11-07 Zeyad Cohen Wi thodist 18:03:00 [facility] ESTIMATED GFR 2021-11-07 Zeyad Cohen 18:03:00 [facility] ECG 12-LEAD 2021-11-07 Liborio Herrera Religious 17:57:16 Hospital FL UGI W OR WO KUB 2021-11-03 Esthela Small Religious 15:16:30 Hospital HEPATITIS C VIRUS (HCV), 2021-11-03 Esthela Small Meth odist QUANTITATIVE PCR 13:52:00 Hospital HEPATIC FUNCTION PANEL 2021-11-03 Esthela Small Method ist 13:52:00 Hospital XR CHEST 2 VW 2021-10-15 Adry Josémarck Alvarezist 02:52:42 Hospital COMPREHENSIVE METABOLIC PANEL 2021-10-15 Mario Maher thodist 01:15:00 [facility] TROPONIN T 2021-10-15 Mario Maher 01:15:00 [facility] B NATRIURETIC PEPTIDE 2021-10-15 Mario Maher 01:15:00 [facility] CBC WITH PLATELET AND DIFFERENTIAL 2021-10-15 Marques Maher 01:15:00 [facility] PROTHROMBIN TIME WITH INR 2021-10-15 Mario Maher ist 01:15:00 [facility] PARTIAL THROMBOPLASTIN TIME (PTT) 2021-10-15 Mario Maher 01:15:00 [facility] ESTIMATED GFR 2021-10-15 Mario Maher 01:15:00 [facility] ECG 12-LEAD 2021-10-15 Mario Maher 00:33:[address] [facility] [address] ANGIOGRAM PE CHEST 2021-10-12 Trung Courtney [...] Hospital URINE CULTURE 2021-10-12 Rajinder Ordoñez 15:17:00 [facility] URINALYSIS SCREEN AND MICROSCOPY, 2021-10-12 Arslan Ordoñez WITH REFLEX TO CULTURE 15:17:00 [facility] HCG QUALITATIVE, URINE SCREEN 2021-10-12 Rajinder Ordoñez 15:17:00 [facility] ECG 12-LEAD 2021-10-12 Rajinder Ordoñez 14:48:50 [facility] OH AN ELECTIVE SUPRAGLOTTIC AIRWAY 2021-09-30 Ruddy Marie 12:10:00 Hospital DECOMPRESSION, ULNAR NERVE 2021-09-30 Rebecca Brownlee 12:06:00 [facility] COVID-19 QUALITATIVE RT-PCR 2021-09-26 Dulce Maria Pierre 14:23:[address] [facility] PROTHROMBIN TIME WITH INR 2021-09-26 Antonio Pierret 14:23:[address] [facility] PARTIAL THROMBOPLASTIN TIME (PTT) 2021-09-26 Keith Pierre 14:23:[address] [facility] COMPREHENSIVE METABOLIC PANEL 2021-09-26 Me Gabby thodist 14:23:[address] [facility] ESTIMATED GFR 2021-09-26 Rebecca Brownlee 14:23:00 [facility] HEMOGLOBIN A1C 2021-09-26 Rebecca Brownlee 14:23:00 [facility] CBC WITH PLATELET AND DIFFERENTIAL 2021-09-19 Lexie Esparza 07:10:00 Hospital THYROID STIMULATING HORMONE 2021-09-19 Peggy Esparza 07:10:00 [facility] CBC WITH PLATELET AND DIFFERENTIAL 2021-09-19 Lexie Esparza 07:10:00 Hospital XR ELBOW 3+ VW LEFT 2021-09-10 Rebecca Brownlee 15:28:27 [facility] [address] ANGIOGRAM NECK W WO CONTRAST 2021-08-27 Brenda Retana 00:01:04 [facility] CT ANGIOGRAM HEAD W WO CONTRAST 2021-08-27 Brenda Retana 00:00:50 [facility] CT HEAD WO CONTRAST 2021-08-26 Brenda Retana 23:42:36 [facility] ECG ED PRELIMINARY INTERPRETATION 2021-08-26 Brenda Retana 23:22:45 [facility] CBC WITH PLATELET AND DIFFERENTIAL 2021-08-26 Willie Retana 21:57:00 [facility] COMPREHENSIVE METABOLIC PANEL 2021-08-26 Brenda Retana Me thodist 21:57:00 [facility] TROPONIN T 2021-08-26 Brenda Retana 21:57:00 [facility] B NATRIURETIC PEPTIDE 2021-08-26 Brenda Retana 21:57:00 [facility] HCG QUALITATIVE, SERUM SCREEN 2021-08-26 Brenda Retana Me thodist 21:57:00 [facility] ESTIMATED GFR 2021-08-26 Brenda Retana 21:57:00 [facility] ECG 12-LEAD 2021-08-26 Brenda Retana 21:42:16 [facility] URINE CULTURE 2021-08-06 Myles Martin 22:27:00 [facility] URINALYSIS SCREEN AND MICROSCOPY, 2021-08-06 Myles Martin Si WITH REFLEX TO CULTURE 22:27:00 Hospital XR CHEST 2 VW 2021-08-06 Myles Martin 20:36:00 Hospital INFLUENZA ANTIGEN 2021-08-06 Susie Melton 20:10:00 [facility] RESPIRATORY PATHOGEN PANEL WITH 2021-08-06 Susie Melton COVID-19 RT-PCR 20:10:00 [facility] ECG ED PRELIMINARY INTERPRETATION 2021-08-06 Myles Martin Si 20:08:02 [facility] COMPREHENSIVE METABOLIC PANEL 2021-08-06 Susie Melton thodist 20:05:00 [facility] CBC WITH PLATELET AND DIFFERENTIAL 2021-08-06 Montserrat Melton 20:05:00 [facility] TROPONIN T 2021-08-06 Susie Melton 20:05:00 [facility] LIPASE LEVEL 2021-08-06 Susie Melton Religious 20:05:00 [facility] ESTIMATED GFR 2021-08-06 Susie Melton 20:05:00 [facility] ECG 12-LEAD 2021-08-06 Susie Melton Religious 19:55:29 [facility] TROPONIN T 2021-08-01 Brenda Retana 03:32:00 [facility] ECG ED PRELIMINARY INTERPRETATION 2021-08-01 Nelson Villagran i Religious 02:37:45 Hospital CBC WITH PLATELET AND DIFFERENTIAL 2021-08-01 Willie Retana Religious 00:35:00 [facility] COMPREHENSIVE METABOLIC PANEL 2021-08-01 Brenda Retana thodist 00:35:00 [facility] TROPONIN T 2021-08-01 Brenda Retana Religious 00:35:00 [facility] B NATRIURETIC PEPTIDE 2021-08-01 Brenda Retana 00:35:00 [facility] ESTIMATED GFR 2021-08-01 Brenda Retanaist 00:35:00 [facility] ECG 12-LEAD 2021-08-01 Brenda Retana 00:23:19 [facility] TROPONIN T 2021-07-30 Jaida Sales 21:35:00 Hospital ECG ED PRELIMINARY INTERPRETATION 2021-07-30 Myles Martin Si Religious 19:53:48 Hospital XR CHEST 2 VW 2021-07-30 Myles Martin Religious 19:37:56 [facility] COMPREHENSIVE METABOLIC PANEL 2021-07-30 Jaida Sales 18:40:00 Hospital CBC WITH PLATELET AND DIFFERENTIAL 2021-07-30 Jaida Sales 18:40:00 Hospital TROPONIN T 2021-07-30 Jaida Sales 18:40:00 Hospital B NATRIURETIC PEPTIDE 2021-07-[address] 18:40:00 Hospital ESTIMATED GFR 2021-07-30 Jaida Sales 18:40:00 Hospital ECG 12-LEAD 2021-07-30 Jaida Sales 18:33:57 Hospital MAMMO BREAST SCREEN TOMOSYNTHESIS 2021-07-28 Shell Vargas Religious BILATERAL 14:20:00 [facility] ECG ED PRELIMINARY INTERPRETATION 2021-07-01 Nelson Villagran i Religious 00:04:28 Hospital TROPONIN T 2021-06-30 Mario Maher 23:09:00 [facility] RESPIRATORY PATHOGEN PANEL WITH 2021-06-30 Mario Maher COVID-19 RT-PCR 21:09:00 [facility] XR CHEST 2 VW 2021-06-30 Mario Maher 20:40:51 [facility] COMPREHENSIVE METABOLIC PANEL 2021-06-30 Mario Maher thodist 20:06:00 [facility] TROPONIN T 2021-06-30 Mario Maher 20:06:00 [facility] B NATRIURETIC PEPTIDE 2021-06-30 Mario Maher 20:06:00 [facility] CBC WITH PLATELET AND DIFFERENTIAL 2021-06-30 Marques Maher 20:06:00 [facility] ESTIMATED GFR 2021-06-30 Mario Maher 20:06:00 [facility] ECG 12-LEAD 2021-06-30 Mario Maher 19:54:19 [facility] POC URINALYSIS DIPSTICK 2021-06-16 Eddie Farris t 18:20:00 [facility] THINPREP TIS PAP AND HPV MRNA 2021-06-16 Eddie Farris Wi thodist E6/E7 REFLEX HPV 16,18/45 18:17:00 Hospit al URINALYSIS, COMPLETE, WITH REFLEX 2021-06-16 Eddie Farrisist TO CULTURE 17:55:00 Hospital XR SHOULDER 2+ VW RIGHT 2021-06-02 Roger Ling t 17:52:26 [facility] MRI LUMBAR SPINE WO CONTRAST 2021-05-09 Shell Vargas Met hodist 18:44:08 [facility] MRI CERVICAL SPINE WO CONTRAST 2021-05-05 Shell Vargas ethodist 14:11:49 [facility] CT LUMBAR SPINE WO CONTRAST 2021-05-04 [...] malignant neoplasm of cervix (procedure) [code = 365545052] Future Scheduled 2024-09-11 [facility]ening for [facility] 00:00:00 malignant neoplasm of cervix (procedure) [code = 534133309] Future Scheduled 2024-09-11 [facility]ening for [facility] 00:00:00 malignant neoplasm of cervix (procedure) [code = 575765436] Future Scheduled 2024-09-11 [facility]ening for [facility] 00:00:00 malignant neoplasm of cervix (procedure) [code = [id number]] Future Scheduled 2024-09-11 [facility]ening for [facility] 00:00:00 malignant neoplasm of cervix (procedure) [code = 031981857] Future Scheduled 2024-09-11 [facility]ening for [facility] 00:00:00 malignant neoplasm of cervix (procedure) [code = 880447337] Future Scheduled 2024-09-11 [facility]ening for [facility] 00:00:00 malignant neoplasm of cervix (procedure) [code = 433417690] Future Scheduled 2024-09-11 [facility]ening for [facility] 00:00:00 malignant neoplasm of cervix (procedure) [code = 184405787] Future Scheduled 2024-09-11 [facility]ening for [facility] 00:00:00 malignant neoplasm of cervix (procedure) [code = 372832701] Future Scheduled 2024-09-11 [facility]ening for [facility] 00:00:00 malignant neoplasm of cervix (procedure) [code = 956063754] Future Scheduled 2024-09-11 [facility]ening for [facility] 00:00:00 malignant neoplasm of cervix (procedure) [code = 565327899] Future Scheduled 2024-09-11 [facility]ening for [facility] 00:00:00 malignant neoplasm of cervix (procedure) [code = 408735954] Future Scheduled 2024-09-11 Screening for [facility] 00:00:00 malignant neoplasm of cervix (procedure) [code = 876907330] Future Scheduled 2024-09-11 Screening for [facility] 00:00:00 malignant neoplasm of cervix (procedure) [code = 920826549] Future Scheduled 2024-09-11 Screening for [facility] 00:00:00 malignant neoplasm of cervix (procedure) [code = 761533849] Future Scheduled 2024-09-11 Screening [facility] 00:00:00 malignant neoplasm of cervix (procedure) [code = 818194205] Future Scheduled 2024-09-11 Screening for [facility] 00:00:00 malignant neoplasm of cervix (procedure) [code = 216422260] Future Scheduled 2024-09-11 Screening [facility] 00:00:00 malignant neoplasm of cervix (procedure) [code = 784089705] Future Scheduled 2024-09-11 Screening [facility] 00:00:00 malignant neoplasm of cervix (procedure) [code = 078576819] Future Scheduled 2024-09-11 [facility]ening [facility] 00:00:00 malignant neoplasm of cervix (procedure) [code = 847899843] Future Scheduled 2024-09-11 Screening [facility] 00:00:00 malignant neoplasm of cervix (procedure) [code = 896417930] Future Scheduled 2024-09-11 [facility]ening [facility] 00:00:00 malignant neoplasm of cervix (procedure) [code = 056404821] Future Scheduled 2024-09-11 Screening [facility] 00:00:00 malignant neoplasm of cervix (procedure) [code = 602678961] Future Scheduled 2024-09-11 [facility]ening [facility] 00:00:00 malignant neoplasm of cervix (procedure) [code = 701679267] Future Scheduled 2023-01-10 IMM Influenza Seasonal H [...] Influenza Seasonal (>/= 19 yrs)] Future Scheduled 2022-11-16 HEPATITIS B VACCINES [facility] Test 15:11:20 (1 of 3 - 3-dose series) [code = HEPATITIS B VACCINES (1 of 3 - 3-dose series)] Future Scheduled 2022-11-16 Pneumococcal Vaccine: [facility] Test 15:11:20 Pediatrics (0 to 5 Years) and At-Risk Patients (6 to 64 Years) (1 - PCV) [code = Pneumococcal Vaccine: Pediatrics (0 to 5 Years) and At-Risk Patients (6 to 64 Years) (1 - PCV)] Future Scheduled 2022-11-16 SHINGLES VACCINES (1 [facility] Test 15:11:20 of 2) [code = SHINGLES VACCINES (1 of 2)] Future Scheduled 2022-11-16 COVID-19 VACCINE (3 - [facility] Test 15:11:20 Pfizer series) [code = COVID-19 VACCINE (3 - Pfizer series)] Future Scheduled 2022-11-16 BREAST CANCER [facility] Test 15:11:20 SCREENING [code = BREAST CANCER SCREENING] Future Scheduled 2022-11-16 INFLUENZA VACCINE Method [facility] Test 15:11:20 [code = INFLUENZA VACCINE] Future Scheduled 2022-11-16 Screening for [facility] Test 15:11:20 malignant neoplasm of cervix (procedure) [code = 269012563] Future Scheduled 2022-10-02 HEPATITIS B VACCINES [facility] Test 12:32:01 (1 of 3 - 3-dose series) [code = HEPATITIS B VACCINES (1 of 3 - 3-dose series)] Future Scheduled 2022-10-02 Pneumococcal Vaccine: [facility] Test 12:32:01 Pediatrics (0 to 5 Years) and At-Risk Patients (6 to 64 Years) (1 - PCV) [code = Pneumococcal Vaccine: Pediatrics (0 to 5 Years) and At-Risk Patients (6 to 64 Years) (1 - PCV)] Future Scheduled 2022-10-02 SHINGLES VACCINES (1 [facility] Test 12:32:01 of 2) [code = SHINGLES VACCINES (1 of 2)] Future Scheduled 2022-10-02 COVID-19 VACCINE (3 - [facility] Test 12:32:01 Pfizer series) [code = COVID-19 VACCINE (3 - Pfizer series)] Future Scheduled 2022-10-02 BREAST CANCER [facility] Test 12:32:01 SCREENING [code = BREAST CANCER SCREENING] Future Scheduled 2022-10-02 INFLUENZA VACCINE [facility] Test 12:32:01 [code = INFLUENZA VACCINE] Future Scheduled 2022-10-02 Screening for [facility] Test 12:32:01 malignant neoplasm of cervix (procedure) [code = 591160435] Future Scheduled 2022-09-11 HEPATITIS B VACCINES [facility] Test 08:52:14 (1 of 3 - 3-dose series) [code = HEPATITIS B VACCINES (1 of 3 - 3-dose series)] Future Scheduled 2022-09-11 Pneumococcal Vaccine: [facility] Test 08:52:14 Pediatrics (0 to 5 Years) and At-Risk Patients (6 to 64 Years) (1 - PCV) [code = Pneumococcal Vaccine: Pediatrics (0 to 5 Years) and At-Risk Patients (6 to 64 Years) (1 - PCV)] Future Scheduled 2022-09-11 COLONOSCOPY SCREENING [facility] Test 08:52:14 [code = COLONOSCOPY SCREENING] Future Scheduled 2022-09-11 SHINGLES VACCINES (1 [facility] Test 08:52:14 of 2) [code = SHINGLES VACCINES (1 of 2)] Future Scheduled 2022-09-11 COVID-19 VACCINE (3 - [facility] Test 08:52:14 Booster for Pfizer series) [code = COVID-19 VACCINE (3 - Booster for Pfizer series)] Future Scheduled 2022-09-11 BREAST CANCER [facility] Test 08:52:14 SCREENING [code = BREAST CANCER SCREENING] Future Scheduled 2022-09-11 INFLUENZA VACCINE Method [facility] Test 08:52:14 [code = INFLUENZA VACCINE] Future Scheduled 2022-09-11 Screening for [facility] Test 08:52:14 malignant neoplasm of cervix (procedure) [code = 451319465] Future Scheduled 2022-08-06 HEPATITIS B VACCINES [facility] Test 21:07:15 (1 of 3 - 3-dose series) [code = HEPATITIS B VACCINES (1 of 3 - 3-dose series)] Future Scheduled 2022-08-06 Pneumococcal Vaccine: [facility] Test 21:07:15 Pediatrics (0 to 5 Years) and At-Risk Patients (6 to 64 Years) (1 - PCV) [code = Pneumococcal Vaccine: Pediatrics (0 to 5 Years) and At-Risk Patients (6 to 64 Years) (1 - PCV)] Future Scheduled 2022-08-06 COLONOSCOPY SCREENING [facility] Test 21:07:15 [code = COLONOSCOPY SCREENING] Future Scheduled 2022-08-06 SHINGLES VACCINES (1 [facility] Test 21:07:15 of 2) [code = SHINGLES VACCINES (1 of 2)] Future Scheduled 2022-08-06 COVID-19 VACCINE (3 - [facility] Test 21:07:15 Booster for Pfizer series) [code = COVID-19 VACCINE (3 - Booster for Pfizer series)] Future Scheduled 2022-08-06 BREAST CANCER [facility] Test 21:07:15 SCREENING [code = BREAST CANCER SCREENING] Future Scheduled 2022-08-06 INFLUENZA VACCINE [facility] Test 21:07:15 [code = INFLUENZA VACCINE] Future Scheduled 2022-08-06 [facility]07[facility]15 malignant neoplasm of cervix (procedure) [code = 565757030] Future Scheduled 2022-06-22 HEPATITIS B VACCINES [facility] Test 14:13:36 (1 of 3 - 3-dose series) [code = HEPATITIS B VACCINES (1 of 3 - 3-dose series)] Future Scheduled 2022-06-22 Pneumococcal Vaccine: [facility] Test 14:13:36 Pediatrics (0 to 5 Years) and At-Risk Patients (6 to 64 Years) (1 - PCV) [code = Pneumococcal Vaccine: Pediatrics (0 to 5 Years) and At-Risk Patients (6 to 64 Years) (1 - PCV)] Future Scheduled 2022-06-22 COLONOSCOPY SCREENING [facility] Test 14:13:36 [code = COLONOSCOPY SCREENING] Future Scheduled 2022-06-22 SHINGLES VACCINES (1 [facility] Test 14:13:36 of 2) [code = SHINGLES VACCINES (1 of 2)] Future Scheduled 2022-06-22 COVID-19 VACCINE (3 - [facility] Test 14:13:36 Booster for Pfizer series) [code = COVID-19 VACCINE (3 - Booster for Pfizer series)] Future Scheduled 2022-06-22 INFLUENZA VACCINE [facility] Test 14:13:36 [code = INFLUENZA VACCINE] Future Scheduled 2022-06-22 BREAST CANCER [facility] Test 14:13:36 SCREENING [code = BREAST CANCER SCREENING] Future Scheduled 2022-06-22 Screening for [facility] Test 14:13:36 malignant neoplasm of cervix (procedure) [code = 358497587] Future Scheduled 2022 HEPATITIS B VACCINES [facility] Test 13:45:15 (1 of 3 - 3-dose series) [code = HEPATITIS B VACCINES (1 of 3 - 3-dose series)] Future Scheduled 2022 Pneumococcal Vaccine: [facility] Test 13:45:15 Pediatrics (0 to 5 Years) and At-Risk Patients (6 to 64 Years) (1 - PCV) [code = Pneumococcal Vaccine: Pediatrics (0 to 5 Years) and At-Risk Patients (6 to 64 Years) (1 - PCV)] Future Scheduled 2022 COLONOSCOPY SCREENING [facility] Test 13:45:15 [code = COLONOSCOPY SCREENING] Future Scheduled 2022 SHINGLES VACCINES (1 [facility] Test 13:45:15 of 2) [code = SHINGLES VACCINES (1 of 2)] Future Scheduled 2022 COVID-19 VACCINE (3 - [facility] Test 13:45:15 Booster for Pfizer series) [code = COVID-19 VACCINE (3 - Booster for Pfizer series)] Future Scheduled 2022 INFLUENZA VACCINE [facility] Test 13:45:15 [code = INFLUENZA VACCINE] Future Scheduled 2022 BREAST CANCER [facility] Test 13:45:15 SCREENING [code = BREAST CANCER SCREENING] Future Scheduled 2022 Screening for [facility] Test 13:45:15 malignant neoplasm of cervix (procedure) [code = 339835062] Future Scheduled 2022-04-17 HEPATITIS B VACCINES [facility] Test 10:21:02 (1 of 3 - 3-dose series) [code = HEPATITIS B VACCINES (1 of 3 - 3-dose series)] Future Scheduled 2022-04-17 Pneumococcal Vaccine: [facility] Test 10:21:02 Pediatrics (0 to 5 Years) and At-Risk Patients (6 to 64 Years) (1 - PCV) [code = Pneumococcal Vaccine: Pediatrics (0 to 5 Years) and At-Risk Patients (6 to 64 Years) (1 - PCV)] Future Scheduled 2022-04-17 COLONOSCOPY SCREENING [facility] Test 10:21:02 [code = COLONOSCOPY SCREENING] Future Scheduled 2022-04-17 SHINGLES VACCINES (1 [facility] Test 10:21:02 of 2) [code = SHINGLES VACCINES (1 of 2)] Future Scheduled 2022-04-17 COVID-19 VACCINE (3 - [facility] Test 10:21:02 Booster for Pfizer series) [code = COVID-19 VACCINE (3 - Booster for Pfizer series)] Future Scheduled 2022-04-17 INFLUENZA VACCINE [facility] Test 10:21:02 [code = INFLUENZA VACCINE] Future Scheduled 2022-04-17 BREAST CANCER [facility] Test 10:21:02 SCREENING [code = BREAST CANCER SCREENING] Future Scheduled 2022-04-17 Screening for [facility] Test 10:21:02 malignant neoplasm of cervix (procedure) [code = 612728746] Future Scheduled 2022-04-15 HEPATITIS B VACCINES [facility] Test 14:24:02 (1 of 3 - 3-dose series) [code = HEPATITIS B VACCINES (1 of 3 - 3-dose series)] Future Scheduled 2022-04-15 Pneumococcal Vaccine: [facility] Test 14:24:02 Pediatrics (0 to 5 Years) and At-Risk Patients (6 to 64 Years) (1 - PCV) [code = Pneumococcal Vaccine: Pediatrics (0 to 5 Years) and At-Risk Patients (6 to 64 Years) (1 - PCV)] Future Scheduled 2022-04-15 COLONOSCOPY SCREENING [facility] Test 14:24:02 [code = COLONOSCOPY SCREENING] Future Scheduled 2022-04-15 SHINGLES VACCINES (1 [facility] Test 14:24:02 of 2) [code = SHINGLES VACCINES (1 of 2)] Future Scheduled 2022-04-15 COVID-19 VACCINE (3 - [facility] Test 14:24:02 Booster for Pfizer series) [code = COVID-19 VACCINE (3 - Booster for Pfizer series)] Future Scheduled 2022-04-15 INFLUENZA VACCINE [facility] Test 14:24:02 [code = INFLUENZA VACCINE] Future Scheduled 2022-04-15 BREAST CANCER [facility] Test 14:24:02 SCREENING [code = BREAST CANCER SCREENING] Future Scheduled 2022-04-15 Screening for [facility] Test 14:24:02 malignant neoplasm of cervix (procedure) [code = 930699989] Future Scheduled 2022-04-03 HEPATITIS B VACCINES [facility] Test 09:31:00 (1 of 3 - 3-dose series) [code = HEPATITIS B VACCINES (1 of 3 - 3-dose series)] Future Scheduled 2022-04-03 Pneumococcal Vaccine: [facility] Test 09:31:00 Pediatrics (0 to 5 Years) and At-Risk Patients (6 to 64 Years) (1 - PCV) [code = Pneumococcal Vaccine: Pediatrics (0 to 5 Years) and At-Risk Patients (6 to 64 Years) (1 - PCV)] Future Scheduled 2022-04-03 COLONOSCOPY SCREENING [facility] Test 09:31:00 [code = COLONOSCOPY SCREENING] Future Scheduled 2022-04-03 SHINGLES VACCINES (1 [facility] Test 09:31:00 of 2) [code = SHINGLES VACCINES (1 of 2)] Future Scheduled 2022-04-03 COVID-19 VACCINE (3 - [facility] Test 09:31:00 Booster for Pfizer series) [code = COVID-19 VACCINE (3 - Booster for Pfizer series)] Future Scheduled 2022-04-03 INFLUENZA VACCINE [facility] Test 09:31:00 [code = INFLUENZA VACCINE] Future Scheduled 2022-04-03 BREAST CANCER [facility] Test 09:31:00 SCREENING [code = BREAST CANCER SCREENING] Future Scheduled 2022-04-03 Screening for [facility] Test 09:31:00 malignant neoplasm of cervix (procedure) [code = 228790992] Future Scheduled 2022-03-05 HEPATITIS B VACCINES [facility] Test 00:08:56 (1 of 3 - 3-dose series) [code = HEPATITIS B VACCINES (1 of 3 - 3-dose series)] Future Scheduled 2022-03-05 Pneumococcal Vaccine: [facility] Test 00:08:56 Pediatrics (0 to 5 Years) and At-Risk Patients (6 to 64 Years) (1 - PCV) [code = Pneumococcal Vaccine: Pediatrics (0 to 5 Years) and At-Risk Patients (6 to 64 Years) (1 - PCV)] Future Scheduled 2022-03-05 COLONOSCOPY SCREENING [facility] Test 00:08:56 [code = COLONOSCOPY SCREENING] Future Scheduled 2022-03-05 SHINGLES VACCINES (1 [facility] Test 00:08:56 of 2) [code = SHINGLES VACCINES (1 of 2)] Future Scheduled 2022-03-05 COVID-19 VACCINE (3 - [facility] Test 00:08:56 Booster for Pfizer series) [code = COVID-19 VACCINE (3 - Booster for Pfizer series)] Future Scheduled 2022-03-05 INFLUENZA VACCINE [facility] Test 00:08:56 [code = INFLUENZA VACCINE] Future Scheduled 2022-03-05 BREAST CANCER [facility] Test 00:08:56 SCREENING [code = BREAST CANCER SCREENING] Future Scheduled 2022-03-05 Screening for [facility] Test 00:08:56 malignant neoplasm of cervix (procedure) [code = 052151443] Future Scheduled 2022-03-05 HEPATITIS B VACCINES [facility] Test 00:08:56 (1 of 3 - 3-dose series) [code = HEPATITIS B VACCINES (1 of 3 - 3-dose series)] Future Scheduled 2022-03-05 Pneumococcal Vaccine: [facility] Test 00:08:56 Pediatrics (0 to 5 Years) and At-Risk Patients (6 to 64 Years) (1 - PCV) [code = Pneumococcal Vaccine: Pediatrics (0 to 5 Years) and At-Risk Patients (6 to 64 Years) (1 - PCV)] Future Scheduled 2022-03-05 COLONOSCOPY SCREENING [facility] Test 00:08:56 [code = COLONOSCOPY SCREENING] Future Scheduled 2022-03-05 SHINGLES VACCINES (1 [facility] Test 00:08:56 of 2) [code = SHINGLES VACCINES (1 of 2)] Future Scheduled 2022-03-05 COVID-19 VACCINE (3 - [facility] Test 00:08:56 Booster for Pfizer series) [code = COVID-19 VACCINE (3 - Booster for Pfizer series)] Future Scheduled 2022-03-05 INFLUENZA VACCINE [facility] Test 00:08:56 [code = INFLUENZA VACCINE] Future Scheduled 2022-03-05 BREAST CANCER [facility] Test 00:08:56 SCREENING [code = BREAST CANCER SCREENING] Future Scheduled 2022-03-05 Screening for [facility] Test 00:08:56 malignant neoplasm of cervix (procedure) [code = 644005563] Future Scheduled 2022-02-22 HEPATITIS B VACCINES [facility] Test 22:17:15 (1 of 3 - 3-dose series) [code = HEPATITIS B VACCINES (1 of 3 - 3-dose series)] Future Scheduled 2022-02-22 Pneumococcal Vaccine: [facility] Test 22:17:15 Pediatrics (0 to 5 Years) and At-Risk Patients (6 to 64 Years) (1 - PCV) [code = Pneumococcal Vaccine: Pediatrics (0 to 5 Years) and At-Risk Patients (6 to 64 Years) (1 - PCV)] Future Scheduled 2022-02-22 COLONOSCOPY SCREENING [facility] Test 22:17:15 [code = COLONOSCOPY SCREENING] Future Scheduled 2022-02-22 SHINGLES VACCINES (1 [facility] Test 22:17:15 of 2) [code = SHINGLES VACCINES (1 of 2)] Future Scheduled 2022-02-22 COVID-19 VACCINE ([facility] - [facility] 22:17:15 Booster for Pfizer series) [code = COVID-19 VACCINE (3 - Booster for Pfizer series)] Future Scheduled 2022-02-22 [facility]:17:15 [code = INFLUENZA VACCINE] Future Scheduled 2022-02-22 [facility] 22:17:15 SCREENING [code = BREAST CANCER SCREENING] Future Scheduled 2022-02-22 [facility]:17:15 malignant neoplasm of cervix (procedure) [code = 534952664] Future Scheduled 2022-01-10 IMM Influenza Seasonal H [...] malignant neoplasm of colon (procedure) [code = 318666247] Future Scheduled 2019 [facility] 00:[facility]:00 malignant neoplasm of colon (procedure) [code = 643821370] Future Scheduled 2019 Screening [facility] 00:00:00 malignant neoplasm of colon (procedure) [code = 550972691] Future Scheduled 2019 Screening [facility] 00:00:00 malignant neoplasm of colon (procedure) [code = 126021862] Future Scheduled 2019 Screening [facility] 00:00:00 malignant neoplasm of colon (procedure) [code = 132619532] Future Scheduled 2019 Screening [facility] 00:00:00 malignant neoplasm of colon (procedure) [code = 835595789] Future Scheduled 2019 Screening [facility] 00:00:00 malignant neoplasm of colon (procedure) [code = 827650215] Future Scheduled 2019 Screening [facility] 00:00:00 malignant neoplasm of colon (procedure) [code = 279154819] Future Scheduled 2019 Screening [facility] 00:00:00 malignant neoplasm of colon (procedure) [code = 982847435] Future Scheduled 2019 Screening [facility] 00:00:00 malignant neoplasm of colon (procedure) [code = 898159080] Future Scheduled 2019 Screening [facility] 00:00:00 malignant neoplasm of colon (procedure) [code = 153171771] Future Scheduled 2019 Screening [facility] 00:00:00 malignant neoplasm of colon (procedure) [code = 727517299] Future Scheduled 1975 Imm Pneumococcal 0-64 Maria [...] Date/Time Type Type Clinicians Facility Department ID 2022-11-16 Outpatient [facility] [id number] [facility] 05:03:14 [id number] [facility] 2022-04-23 Outpatient [facility] [id number] [place] 15:11:[id number] [place] [address] 2022-11-06 2022-11-06 Outpatient [facility] [id number] Vadim 08:17:59 08:17:59 [id number] F Chadwick 2022-09-14 2022-09-14 Outpatient [facility] SFA - Vadim 14:26:13 14:26:13 [id number] F Chadwick 2022-09-10 2022-09-10 Orders Fabby, 1.2.840.1 [id number] Methodi 00:00:00 00:00:00 Only [place] [address]00.1.[address] [place] 3.430.2.7 Hospit a .3.818249 l .8 2022-09-10 2022-09-10 Telephone Jean, 1.2.840.1 [id number] Methodi 00:00:00 00:00:[address] 3.430.2.7 Hospit a .3.209814 l .8 2022-09-10 2022-09-10 Orders Davidrosa maria, 1.2.840.1 [id number] [id number] Methodi 00:00:00 00:00:00 [place] [address].1.[address] [place] 3.430.2.7 Hospit a .3.288666 l .8 2022-09-10 2022-09-10 Telephone Jean, 1.2.840.1 [id number] 2099 [id number] Methodi 00:00:00 00:00:[address] 3.430.2.7 Hospit a .3.804217 l .8 2022-05-15 2022-05-15 Outpatient KELLI ALDANA [id number] Kelli 00:00:00 00:00:00 SHINE ren 2022-02-19 2022-02-19 Emergency Vasquez, 1.2.840.1 [id number] Methodi 18:09:00 20:16:[address] [place] 3.430.2.7 Hosp shai .3.144559 l .8 2022-02-19 2022-02-19 Emergency Vasquez, 1.2.840.1 [id number] 2100 [id number] Methodi 18:09:00 20:16:[address] [place] 3.430.2.7 Hosp shai .3.392353 l .8 2022-02-12 2022-02-12 Orders Jessica, 1.2.840.1 [id number] Methodi 00:00:00 00:00:00 Only Maureen 00654.1.[address] 3.430.2.7 Hospit a .3.191847 l .8 2022-02-12 2022-02-12 Orders Lopez, 1.2.840.1 [id number] Methodi 00:00:00 00:00:00 Only Maureen [address]99.1.[address] 3.430.2.7 Hospit a .3.675890 l .8 2022-02-11 2022-02-11 Orders Jessica, 1.2.840.1 [id number] Methodi 00:00:00 00:00:00 Only Maureen 78870.1.[address] 3.430.2.7 Hospit a .3.436233 l .8 2022-02-11 2022-02-11 Telephone Prasanth 1.2.840.1 [id number] 2099 [id number] Methodi 00:00:00 00:00:00 Eddie Franco [address]2639.1.[address] 3.430.2.7 Hospit a .3.371848 l .8 2022-02-11 2022-02-11 Orders Jessica, 1.2.840.1 [id number] Methodi 00:00:00 00:00:00 Only Maureen 73152.1.[address] 3.430.2.7 Hospit a .3.908587 l .8 2022-02-11 2022-02-11 Telephone Prasanth 1.2.840.1 [id number] 2099 [id number] Methodi 00:00:00 00:00:[address] 3.430.2.7 Hospit a .3.999413 l .8 2022-02-09 2022-02-09 Outpatient [facility] PDPFCCG ETQ [facility] 00:00:00 00:00:00 [id number] 2022-02-09 2022-02-09 Lamberto Farris, 1.2.840.1 [id number] 2099 [id number] Methodi 00:00:00 00:00:00 Eddie Franco 61735.1.[address] 3.430.2.7 Hospit a .3.192111 l .8 2022-02-09 2022-02-09 Telephone Prasanth 1.2.840.1 [id number] 2099 [id number] Methodi 00:00:00 00:00:00 Eddie Franco [address]8212.1.[address] 3.430.2.7 Hospit a .3.434430 l .8 2022-02-05 2022-02-05 Lab Prasanth 1.2.840.1 [id number] 3886 Methodi 10:50:00 10:55:00 Eddie Franco 56946.1.[address] 3.430.2.7 Hospit a .3.117190 l .8 2022-02-05 2022-02-05 Lab Prasanth, 1.2.840.1 [id number] 4163 Methodi 10:50:00 10:55:00 Eddie Franco 60625.1.[address] 3.430.2.7 Hospit a .3.346473 l .8 2022-02-05 2022-02-05 Office Prasanth, 1.2.840.1 [id number] 5442 Methodi 09:40:00 10:31:06 Visit Eddie Franco 89424.1.[address] 3.430.2.7 Hospit a .3.780407 l .8 2022-02-05 2022-02-05 Office Prasanth, 1.2.840.1 [id number] 1865 Methodi 09:40:00 10:31:06 Visit Eddie Franco 51427.1.[address] 3.430.2.7 Hospit a .3.673307 l .8 2022-02-05 2022-02-05 Refill Istre, 1.2.840.1 [id number] 4310 Methodi 00:00:00 00:00:[address] [place] 3.430.2.7 Hospi ta .3.085510 l .8 2022-02-05 2022-02-05 Travel 1.2.840.1 1.2.154.126 [id number] Methodi 00:00:00 00:00:[address] 3.430.2.7 0.2.7.3.698 Ho spita .3.015860 084.8 l .8 2022-02-05 2022-02-05 Refill Istre, 1.2.840.1 [id number] 3977 Methodi 00:00:00 00:00:[address] [place] 3.430.2.7 Hospi ta .3.963662 l .8 2022-02-05 2022-02-05 Travel 1.2.840.1 1.2.730.166 5598 [id number] Methodi 00:00:00 00:00:[address] 3.430.2.7 0.2.7.3.698 Ho spita .3.993410 084.8 l .8 2022-02-03 2022-02-03 Telephone Prasanth, 1.2.840.1 [id number] 2099 [id number] Methodi 00:00:00 00:00:00 Eddie Franco [address]609.1.[address] 3.430.2.7 Hospit a .3.195193 l .8 2022-02-03 2022-02-03 Telephone Prasanth, 1.2.840.1 [id number] Methodi 00:00:00 00:00:00 Eddie Franco [address].1.[address] 3.430.2.7 Hospit a .3.315017 l .8 2022-01-01 2022-01-01 Telephone Alessio, 1.2.840.1 [id number] 2099 [id number] Methodi 00:00:00 00:00:[address] 3.430.2.7 Hospit a .3.587133 l .8 2022-01-01 2022-01-01 Telephone Mccallum, 1.2.840.1 [id number] Methodi 00:00:00 00:00:[address] 3.430.2.7 Hospit a .3.740676 l .8 2021-12-26 2021-12-26 Surgery Small, 1.2.840.1 [id number] 5734 Methodi 11:00:00 11:45:[address] [place] 3.430.2.7 Hospit a .3.056339 l .8 2021-12-262021-12-26 Surgery [facility], 1.2.840.1 [id number] Methodi 11:00:00 11:45:[address] Hasan 3.430.2.7 Hospit a .3.334039 l .8 2021-12-26 2021-12-26 [facility], 1.2.840.1 [id number] Methodi 10:21:00 11:28:00 Encounter Proctor 66923.1.[address] Hasan 3.430.2.7 Hospit a .3.606192 l .8 2021-12-26 2021-12-26 [facility], 1.2.840.1 [id number] Methodi 10:21:00 11:28:00 Encounter Proctor 84028.1.[address] [facility] 3.430.2.7 Hospit a .3.327745 l .8 2021-12-26 2021-12-26 Anesthesia [facility]ie[facility] 1.2.840.1 [id number] Methodi 10:44:00 11:06:00 Event Edward 77419.1.[address] 3.430.2.7 Hospit a .3.782797 l .8 2021-12-26 2021-12-26 Anesthesia PennieHans 1.2.840.1 [id number] Methodi 10:44:00 11:06:00 Event Edward 33339.1.[address] 3.430.2.7 Hospit a .3.773333 l .8 2021-12-26 2021-12-26 Travel 1.2.840.1 1.2.999.722 7630 323495 Methodi 00:00:00 00:00:[address] 3.430.2.7 0.2.7.3.698 Ho spita .3.621684 084.8 l .8 2021-12-26 2021-12-26 Travel 1.2.840.1 1.2.537.975 2246 021640 Methodi 00:00:00 00:00:[address] 3.430.2.7 0.2.7.3.698 Ho spita .3.560881 084.8 l .8 2021-12-24 2021-12-24 Lab Staci, 1.2.840.1 691752382 252205 6270 Methodi 08:00:00 08:15:[address] Hasan 3.430.2.7 Hospit a .3.266992 l .8 2021-12-24 2021-12-24 Lab Staci, 1.2.840.1 968110677 322201 8763 Methodi 08:00:00 08:15:[address] Hasan 3.430.2.7 Hospit a .3.467304 l .8 2021-12-24 2021-12-24 Orders Marc, 1.2.840.1 164869239 886183 1150 Methodi 00:00:00 00:00:00 Only Kortney 06277.1.[address] 3.430.2.7 Hospit a .3.229052 l .8 2021-12-24 2021-12-24 Orders Marc, 1.2.840.1 739578883 979238 6674 Methodi 00:00:00 00:00:00 Only Kortney 35618.1.[address] 3.430.2.7 Hospit a .3.294775 l .8 2021-12-18 2021-12-18 Office Prasanth, 1.2.840.1 672454575 905709 5654 Methodi 11:00:00 13:02:01 Visit Eddie Franco 25658.1.[address] 3.430.2.7 Hospit a .3.416764 l .8 2021-12-18 2021-12-18 Office Prasanth, 1.2.840.1 986677122 095059 8484 Methodi 11:00:00 13:02:01 Visit Eddie Franco 22481.1.[address] 3.430.2.7 Hospit a .3.706975 l .8 2021-12-18 2021-12-18 Travel 1.2.840.1 1.2.608.968 3622 440621 Methodi 00:00:00 00:00:[address] 3.430.2.7 0.2.7.3.698 Ho spita .3.994301 084.8 l .8 2021-12-18 2021-12-18 Travel 1.2.840.1 1.2.157.968 0197 240964 Methodi 00:00:00 00:00:[address] 3.430.2.7 0.2.7.3.698 Ho spita .3.644892 084.8 l .8 2021-12-16 2021-12-16 Office Doug Estevez [facility] Encounter/ Legacy 00:00:00 00:00:00 Visit Bijan Carson [id number] [facility] 125444 [facility] 2021-12-09 2021-12-09 Refill Leggett, 1.2.840.1 [id number] 2099385 Methodi 00:00:00 00:00:[address] 3.430.2.7 Hospit a .3.744132 l .8 2021-12-09 2021-12-09 Refill Leggett, 1.2.840.1 801572378 2099385 Methodi 00:00:00 00:00:[address] 3.430.2.7 Hospit a .3.411335 l .8 2021-11-28 2021-11-28 Office Carly 1.2.840.1 962737469 670 0239962 Methodi 10:15:00 10:52:48 [place] [address]94.1.[address] 3.430.2.7 Hospit a .3.833693 l .8 2021-11-28 2021-11-28 Office Carly, 1.2.840.1 584993989 212 7270370 Methodi 10:15:00 10:52:48 [place] [address]37.1.[address] 3.430.2.7 Hospit a .3.660800 l .8 2021-11-28 2021-11-28 Travel 1.2.840.1 1.2.389.730 1966 394309 Methodi 00:00:00 00:00:[address] 3.430.2.7 0.2.7.3.698 Ho spita .3.303386 084.8 l .8 2021-11-28 2021-11-28 Travel 1.2.840.1 1.2.881.151 1763 823329 Methodi 00:00:00 00:00:[address] 3.430.2.7 0.2.7.3.698 Ho spita .3.850864 084.8 l .8 2021-11-17 2021-11-17 Office Fabby, 1.2.840.1 215750641 326881 9514 Methodi 09:00:00 09:30:00 Visit Juana 62591.1.[address] Kelley 3.430.2.7 Hospit a .3.080191 l .8 2021-11-17 2021-11-17 Office Fabby, 1.2.840.1 883599988 682343 3761 Methodi 09:00:00 09:30:00 Visit Juana 00164.1.[address] Kelley 3.430.2.7 Hospit a .3.192144 l .8 2021-11-17 2021-11-17 Travel 1.2.840.1 1.2.266.342 4576 688166 Methodi 00:00:00 00:00:[address] 3.430.2.7 0.2.7.3.698 Ho spita .3.546448 084.8 l .8 2021-11-17 2021-11-17 Travel 1.2.840.1 1.2.708.847 1318 560617 Methodi 00:00:00 00:00:[address] 3.430.2.7 0.2.7.3.698 Ho spita .3.285712 084.8 l .8 2021-11-14 2021-11-14 Orders Istre, 1.2.840.1 255323713 888593 4576 Methodi 00:00:00 00:00:00 Only Shell 02716.1.[address] [place] 3.430.2.7 Hospi ta .3.679755 l .8 2021-11-11 2021-11-11 Telemedici Istre, 1.2.840.1 133073498 789 3440764 Methodi 10:00:00 10:40:34 ne Shell 27387.1.[address] Doe 3.430.2.7 Hospi ta .3.801719 l .8 2021-11-07 2021-11-07 Emergency Noel, 1.2.840.1 881367914 2099 210470 Methodi 14:04:00 15:46:[address] Kirsten 3.430.2.7 Hospit a .3.334552 l .8 2021-11-07 2021-11-07 Travel 1.2.840.1 1.2.674.830 0737 418210 Methodi 00:00:00 00:00:[address] 3.430.2.7 0.2.7.3.698 Ho spita .3.829247 084.8 l .8 2021-11-03 2021-11-03 Lab Small, 1.2.840.1 399957338 321093 2773 Methodi 08:25:00 08:30:[address] Hasan 3.430.2.7 Hospit a .3.049609 l .8 2021-11-03 2021-11-03 Outpatient SMALL, [facility] 6155409 623 [place] 00:00:00 00:00:00 PROCTOR [address] 2021-11-03 2021-11-03 Telephone Alessio, 1.2.840.1 [id number] 2099 136673 Methodi 00:00:00 00:00:[address] 3.430.2.7 Hospit a .3.136364 l .8 2021-11-03 2021-11-03 Travel 1.2.840.1 1.2.453.969 4240 075491 Methodi 00:00:00 00:00:[address] 3.430.2.7 0.2.7.3.698 Ho spita .3.072957 084.8 l .8 2021-10-29 2021-10-29 Documentat Judd, 1.2.840.1 482947620 2 019227416 Methodi 00:00:00 00:00:00 ion Amanda 92253.1.[address] 3.430.2.7 Hospit a .3.016330 l .8 2021-10-29 2021-10-29 Prep for Binta, 1.2.840.1 311497904 151 3637556 Methodi 00:00:00 00:00:00 Surgery Amanda 77331.1.[address] 3.430.2.7 Hospit a .3.490835 l .8 2021-10-29 2021-10-29 Telephone Binta, 1.2.840.1 [id number] 21 [id number] Methodi 00:00:00 00:00:[address] 3.430.2.7 Hospit a .3.388498 l .8 2021-10-29 2021-10-29 Travel 1.2.840.1 1.2.574.529 4220 821262 Methodi 00:00:00 00:00:[address] 3.430.2.7 0.2.7.3.698 Ho spita .3.184094 084.8 l .8 2021-10-22 2021-10-22 Office Kem, 1.2.840.1 272636116 907 3957942 Methodi 09:40:00 10:17:00 Visit Rebecca Nguyen 45305.1.[address] 3.430.2.7 Hospit a .3.299440 l .8 2021-10-22 2021-10-22 Travel 1.2.840.1 1.2.794.997 7983 672157 Methodi 00:00:00 00:00:[address] 3.430.2.7 0.2.7.3.698 Ho spita .3.251612 084.8 l .8 2021-10-14 2021-10-15 Emergency Adry, 1.2.840.1 521512411 918 9244438 Methodi 21:57:00 00:06:00 José Gates 42765.1.[address] 3.430.2.7 Hospit a .3.712902 l .8 2021-10-12 2021-10-12 Emergency Courtney, 1.2.840.1 125523461 2100 923188 Methodi 10:13:00 14:37:[address] Swann [address]44.1.[address] 3.430.2.7 Hospit a .3.677695 l .8 2021-10-09 2021-10-09 Telephone Juan Carlos Rivers 1.2.840.1 [id number] 1292841995 Methodi 00:00:00 00:00:[address] 3.430.2.7 Hospit a .3.600756 l .8 2021-10-09 2021-10-09 Telephone Juan Carlos Rivers 1.2.840.1 738326962 4650733704 Methodi 00:00:00 00:00:[address] 3.430.2.7 Hospit a .3.272079 l .8 2021-10-09 2021-10-09 Orders Iscorwin, 1.2.840.1 756687881 662297 4954 Methodi 00:00:00 00:00:00 Only Shell 71704.1.[address] [place] 3.430.2.7 Hospi ta .3.454677 l .8 2021-10-02 2021-10-02 Telephone Lazarus, 1.2.840.1 631532618 078 7123400 Methodi 00:00:00 00:00:[address] 3.430.2.7 Hospit a .3.756225 l .8 2021-09-30 2021-09-30 Surgery [facility] 1.2.840.1 875148258 286 9295820 Methodi 07:15:00 09:02:00 Rebecca Nguyen 90713.1.[address] 3.430.2.7 Hospit a .3.345100 l .8 2021-09-30 2021-09-30 [facility] 1.2.840.1 517651390 21 91193041 Methodi 06:02:00 08:50:00 Encounter Rebecca Nguyen 93223.1.[address] 3.430.2.7 Hospit a .3.820276 l .8 2021-09-30 2021-09-30 Anesthesia Tomas Mattson. 1.2.840.1 1045 73663 8630636724 Methodi 07:05:00 08:04:00 Event Sunita Marie 54100.1.[address] 3.430.2.7 Hospit a .3.286501 l .8 2021-09-26 2021-09-26 Outpatient [facility] 2100 533436 [place] 00:00:00 00:00:00 REBECCA Baumann Method i st 2021-09-19 2021-09-19 Travel 1.2.840.1 1.2.474.940 6160 463376 Methodi 00:00:00 00:00:[address] 3.430.2.7 0.2.7.3.698 Ho spita .3.589574 084.8 l .8 2021-09-19 2021-09-19 Orders Marrero, 1.2.840.1 470473135 2100 857815 Methodi 00:00:00 00:00:00 Only Sharon 14402.1.[address] 3.430.2.7 Hospit a .3.919218 l .8 2021-09-19 2021-09-19 Orders Tavares, 1.2.840.1 614713942 632593 2082 Methodi 00:00:00 00:00:00 Only Peggy 84206.1.[address] 3.430.2.7 Hospit a .3.188226 l .8 2021-09-18 2021-09-18 Orders Propes, 1.2.840.1 461848275 557396 8068 Methodi 00:00:00 00:00:00 Only Pina 64869.1.[address] 3.430.2.7 Hospit a .3.643022 l .8 2021-09-14 2021-09-14 Orders Tavares, 1.2.840.1 798190412 819013 4000 Methodi 00:00:00 00:00:00 Only Peggy 82410.1.[address] 3.430.2.7 Hospit a .3.926346 l .8 2021-09-11 2021-09-11 Office Tavares, 1.2.840.1 223777881 091914 9871 Methodi 15:50:00 16:55:49 Visit Peggy 16418.1.[address] 3.430.2.7 Hospit a .3.170932 l .8 2021-09-11 2021-09-11 Travel 1.2.840.1 1.2.026.353 5855 020481 Methodi 00:00:00 00:00:[address] 3.430.2.7 0.2.7.3.698 Ho spita .3.850863 084.8 l .8 2021-09-10 2021-09-10 Office Kem, 1.2.840.1 119568637 064 5202847 Methodi 10:40:00 11:03:05 Visit Rebecca Altagracia 67474.1.[address] 3.430.2.7 Hospit a .3.662964 l .8 2021-09-10 2021-09-10 Orders Wyatt, 1.2.840.1 642434194 2100 104890 Methodi 00:00:00 00:00:00 Only Jami 29749.1.[address] 3.430.2.7 Hospit a .3.694141 l .8 2021-09-10 2021-09-10 Outpatient KEM, [facility] 2100 323738 [place] 00:00:00 00:00:00 REBECCA Tran Method i st 2021-08-31 2021-08-31 Refill Istre, 1.2.840.1 [id number] 733240 0955 Methodi 00:00:00 00:00:[address] [place] 3.430.2.7 Hospi ta .3.676725 l .8 2021-08-31 2021-08-31 Refill Prasanth, 1.2.840.1 603451357 887014 0931 Methodi 00:00:00 00:00:00 Eddie Franco 46233.1.[address] 3.430.2.7 Hospit a .3.913857 l .8 2021-08-29 2021-08-29 Telephone Denisse, 1.2.840.1 013240780 2100 908661 Methodi 00:00:00 00:00:[address] O[address]80.[address] 3.430.2.7 Hospit a .3.024681 l .8 2021-08-29 2021-08-29 Orders Iscorwin, 1.2.840.1 537931773 321363 5038 Methodi 00:00:00 00:00:00 Only Shell 36622.1.[address] [place] 3.430.2.7 Hospi ta .3.494705 l .8 2021-08-28 2021-08-28 Travel 1.2.840.1 1.2.591.520 9721 806540 Methodi 00:00:00 00:00:[address] 3.430.2.7 0.2.7.3.698 Ho spita .3.335433 084.8 l .8 2021-08-26 2021-08-26 Emergency Mazin, 1.2.840.1 020207368 2099 877619 Methodi 16:36:00 20:08:[address] Adrienne 3.430.2.7 Hospit a .3.401456 l .8 2021-08-26 2021-08-26 Orders Colmenter, 1.2.840.1 828896542 449 5049169 Methodi 00:00:00 00:00:00 Only Linda 94599.1.[address] 3.430.2.7 Hospit a .3.496009 l .8 2021-08-21 2021-08-21 Orders Colmenter, 1.2.840.1 042197911 311 4844411 Methodi 00:00:00 00:00:00 Only Linda 91957.1.[address] 3.430.2.7 Hospit a .3.093925 l .8 2021-08-14 2021-08-14 Office Colmenter, 1.2.840.1 303646331 939 3725328 Methodi 11:00:00 13:05:34 Visit Linda 83506.1.[address] 3.430.2.7 Hospit a .3.486149 l .8 2021-08-12 2021-08-12 Office Prasanth, 1.2.840.1 213686536 934835 0946 Methodi 10:00:00 11:08:57 Visit Eddie AldridgeChantal 84824.1.[address] 3.430.2.7 Hospit a .3.092995 l .8 2021-08-12 2021-08-12 Travel 1.2.840.1 1.2.426.926 6193 066740 Methodi 00:00:00 00:00:[address] 3.430.2.7 0.2.7.3.698 Ho spita .3.463904 084.8 l .8 2021-08-08 2021-08-08 Emergency EM Lynda, HCAKW SHIRLENE [id number] 49 [facility] 12:48:00 19:41:00 Di 70 [facility] 2021-08-08 2021-08-08 Emergency EM Lynda, HCAKW HCAKW [id number] [facility] 12:48:00 19:41:00 Di [id number] [facility] 2021-08-08 2021-08-08 Outpatient Lynda, HCACL LABO [id number] 165 [facility] 19:09:00 19:09:00 Di 00 [facility] 2021-08-08 2021-08-08 Transcribe Istre, 1.2.840.1 [id number] 867 2551493 Methodi 00:00:00 00:00:00 Orders Shell 34556.1.[address] [place] 3.430.2.7 Hospi ta .3.228873 l .8 2021-08-06 2021-08-06 Emergency Myles Martin 1.2.840.1 [id number] Methodi 14:54:00 18:50:[address] 3.430.2.7 Hospit a .3.165597 l .8 2021-08-06 2021-08-06 Travel 1.2.840.1 1.2.880.436 8036 690423 Methodi 00:00:00 00:00:[address] 3.430.2.7 0.2.7.3.698 Ho spita .3.391619 084.8 l .8 2021-08-04 2021-08-04 Office Istre, 1.2.840.1 057486804 114743 7635 Methodi 14:20:00 15:33:19 Visit Shell 37355.1.[address] [place] 3.430.2.7 Hospi ta .3.800284 l .8 2021-08-04 2021-08-04 Travel 1.2.840.1 1.2.095.315 0822 456626 Methodi 00:00:00 00:00:[address] 3.430.2.7 0.2.7.3.698 Ho spita .3.498137 084.8 l .8 2021-07-31 2021-07-31 Emergency Nelson Villagran 1.2.840.1 860872353 2124829608 Methodi 21:39:00 23:28:[address] 3.430.2.7 Hospit a .3.590870 l .8 2021-07-31 2021-07-31 Travel 1.2.840.1 1.2.453.079 2030 084898 Methodi 00:00:00 00:00:[address] 3.430.2.7 0.2.7.3.698 Ho spita .3.438018 084.8 l .8 2021-07-30 2021-07-30 Emergency Myles Martin 1.2.840.1 451211065 5833936484 Methodi 13:34:00 17:16:[address] 3.430.2.7 Hospit a .3.766643 l .8 2021-07-30 2021-07-30 Telephone Iscorwin, 1.2.840.1 [id number] 2099 925410 Methodi 00:00:00 00:00:[address] Doe 3.430.2.7 Hospi ta .3.112213 l .8 2021-07-28 2021-07-28 Outpatient [facility] [id number] 879 [place] 00:00:00 00:00:00 PEGGY Smith Method i st 2021-07-24 2021-07-24 Orders Jessica, 1.2.840.1 [id number] 19427 99495 Methodi 00:00:00 00:00:00 Only Maureen 84473.1.[address] 3.430.2.7 Hospit a .3.741928 l .8 2021-07-23 2021-07-23 Orders Istre, 1.2.840.1 721413642 309191 0873 Methodi 00:00:00 00:00:00 Only Shell 93645.1.[address] Doe 3.430.2.7 Hospi ta .3.486541 l .8 2021-07-21 2021-07-21 Orders Istre, 1.2.840.1 286028275 118423 7618 Methodi 00:00:00 00:00:00 Only Shell 88249.1.[address] [place] 3.430.2.7 Hospi ta .3.942644 l .8 2021-07-15 2021-07-15 Telephone Leggett, 1.2.840.1 [id number] 65242669 Methodi 00:00:00 00:00:[address] 3.430.2.7 Hospit a .3.013282 l .8 2021-07-15 2021-07-15 Travel 1.2.840.1 1.2.346.295 8303 663405 Methodi 00:00:00 00:00:[address] 3.430.2.7 0.2.7.3.698 Ho spita .3.886155 084.8 l .8 2021-07-10 2021-07-10 Treatment Shell Vargas 1.2.840.1 009420915 0708945606 Methodi 09:00:00 10:00:00 Peggy Esparza 34242.1.[address] Smooth [place] 3.430.2.7 H ospita .3.088725 l .8 2021-07-10 2021-07-10 Plan of 1.2.840.1 980092405 106482 3317 Methodi 00:00:00 00:00:[address] Documentat 3.430.2.7 Hos margie ion .3.100947 l .8 2021-07-09 2021-07-09 Travel 1.2.840.1 1.2.586.987 8050 288590 Methodi 00:00:00 00:00:[address] 3.430.2.7 0.2.7.3.698 Ho spita .3.044768 084.8 l .8 2021-07-09 2021-07-09 Orders Istre, 1.2.840.1 244505602 213673 7107 Methodi 00:00:00 00:00:00 Only Shell 91345.1.[address] [place] 3.430.2.7 Hospi ta .3.688548 l .8 2021-07-03 2021-07-03 Travel 1.2.840.1 1.2.462.286 0516 756345 Methodi 00:00:00 00:00:[address] 3.430.2.7 0.2.7.3.698 Ho spita .3.178704 084.8 l .8 2021-06-30 2021-06-30 Emergency Tyshawn, Nelson 1.2.840.1 [id number] 8346958950 Methodi 14:43:00 20:06:[address] 3.430.2.7 Hospit a .3.676482 l .8 2021-06-19 2021-06-19 Orders Madera, 1.2.840.1 618490178 744410 5471 Methodi 00:00:00 00:00:00 Only Susanne 74782.1.[address] 3.430.2.7 Hospit a .3.448111 l .8 2021-06-18 2021-06-18 Orders Tran, 1.2.840.1 905903571 656717 1889 Methodi 00:00:00 00:00:00 Only Kortney 71697.1.[address] 3.430.2.7 Hospit a .3.910548 l .8 2021-06-18 2021-06-18 Telephone Jessica, 1.2.840.1 482373658 139 0869680 Methodi 00:00:00 00:00:[address] 3.430.2.7 Hospit a .3.801728 l .8 2021-06-16 2021-06-16 Office Prasanth, 1.2.840.1 [id number] 433294 6254 Methodi 11:40:00 13:03:55 Visit Eddie Franco 64148.1.[address] 3.430.2.7 Hospit a .3.774907 l .8 2021-06-16 2021-06-16 Travel 1.2.840.1 1.2.237.200 8253 855208 Methodi 00:00:00 00:00:[address] 3.430.2.7 0.2.7.3.698 Ho spita .3.944365 084.8 l .8 2021-06-03 2021-06-03 Refill Santy, 1.2.840.1 569459191 815781 1175 Methodi 00:00:00 00:00:[address] 3.430.2.7 Hospit a .3.004074 l .8 2021-06-03 2021-06-03 Telephone Abreu, 1.2.840.1 [id number] 2100 108242 Methodi 00:00:00 00:00:[address] 3.430.2.7 Hospit a .3.273082 l .8 2021-06-02 2021-06-02 Emergency Gunnar, 1.2.840.1 847173340 2 258825574 Methodi 10:56:00 13:23:00 Mario Crook 63292.1.1 606 [address] t 3.430.2.7 Hospit a .3.540143 l .8 2021-06-02 2021-06-02 Orders Alicia, 1.2.840.1 595524695 001553 3319 Methodi 00:00:00 00:00:00 Only Shell 06315.1.[address] [place] 3.430.2.7 Hospi ta .3.610340 l .8 2021-05-30 2021-05-30 Treatment Shell Vargas 1.2.840.1 [id number] [id number] Methodi 10:00:00 11:00:00 Smooth [place]cal[place] 64534.1.[address] 3.430.2.7 Hospit a .3.551886 l .8 2021-05-28 2021-05-28 Orders Alicia, 1.2.840.1 255607798 189476 3305 Methodi 00:00:00 00:00:00 Only Shell 77188.1.[address] Doe 3.430.2.7 Hospi ta .3.998588 l .8 2021-05-27 2021-05-27 Travel 1.2.840.1 1.2.258.518 9279 336024 Methodi 00:00:00 00:00:[address] 3.430.2.7 0.2.7.3.698 Ho spita .3.924637 084.8 l .8 2021-05-19 2021-05-19 Evaluation Shell Vargas 1.2.840.1 708875693 2298453419 Methodi 11:00:00 12:00:00 Peggy Esparza 60614.1.[address] [place] 3.430.2.7 H ospita .3.990417 l .8 2021-05-19 2021-05-19 Plan of 1.2.840.1 125641998 708311 6668 Methodi 00:00:00 00:00:[address] Documentat 3.430.2.7 Hos margie ion .3.314154 l .8 2021-05-19 2021-05-19 Travel 1.2.840.1 1.2.410.985 0373 229120 Methodi 00:00:00 00:00:[address] 3.430.2.7 0.2.7.3.698 Ho spita .3.003699 084.8 l .8 2021-05-09 2021-05-09 Travel 1.2.840.1 1.2.878.569 6492 177863 Methodi 00:00:00 00:00:[address] 3.430.2.7 0.2.7.3.698 Ho spita .3.320439 084.8 l .8 2021-05-09 2021-05-09 [facility] [id number] [place] 00:00:00 00:00:[address] PEGGY [address] 2021-05-06 2021-05-06 Orders Istre, 1.2.840.1 [id number] 8862 Methodi 00:00:00 00:00:00 Only Shell 64511.1.[address] [place] 3.430.2.7 Hospi ta .3.673857 l .8 2021-05-05 2021-05-05 [facility] [id number] [place] 00:00:00 00:00:00 PEGGY [address] 2021-05-04 2021-05-04 Emergency Oghogho, 1.2.840.1 [id number] [id number] Methodi 14:39:00 18:56:[address] 3.430.2.7 Hospit a .3.621491 l .8 2021-05-04 2021-05-04 Travel 1.2.840.1 1.2.302.705 9718 456988 Methodi 00:00:00 00:00:[address] 3.430.2.7 0.2.7.3.698 Ho spita .3.559705 084.8 l .8 2021-05-02 2021-05-02 Outpatient MILACA, [facility] [id number] [place] 00:00:00 00:00:00 [facility] 2021-04-30 2021-04-30 Travel 1.2.840.1 1.2.771.302 5405 017256 Methodi 00:00:00 00:00:[address] 3.430.2.7 0.2.7.3.698 Ho spita .3.046840 084.8 l .8 2021-04-28 2021-04-28 Orders Istre, 1.2.840.1 [id number] 0434 Methodi 00:00:00 00:00:00 Only Shell 60449.1.[address] [place] 3.430.2.7 Hospi ta .3.243284 l .8 2021-04-17 2021-04-17 Office Istre, 1.2.840.1 [id number] 8317 Methodi 15:00:00 15:00:06 Visit Shell 03407.1.[address] [place] 3.430.2.7 Hospi ta .3.233287 l .8 2021-04-16 2021-04-16 Travel 1.2.840.1 1.2.746.870 5449 141230 Methodi 00:00:00 00:00:[address] 3.430.2.7 0.2.7.3.698 Ho spita .3.683818 084.8 l .8 2021-04-12 2021-04-12 Emergency Svach, 1.2.840.1 [id number] 2099 [id number] Methodi 15:47:00 22:48:00 [place]ine R [address].1.[address] 3.430.2.7 Hospit a .3.111877 l .8 2021-04-08 2021-04-08 Travel 1.2.840.1 1.2.547.540 8778 834021 Methodi 00:00:00 00:00:[address] 3.430.2.7 0.2.7.3.698 Ho spita .3.247982 084.8 l .8 2021-03-28 2021-03-28 Office Rj Mireles [facility] [id number] [place] 08:30:00 09:30:00 Visit Jackie [facility] 2021-03-28 2021-03-28 [facility] [id number] [place] 00:00:00 00:00:00 [facility] 2021-03-14 2021-03-14 Outpatient RADHA, [facility] [id number] [place] 00:00:00 00:00:00 [facility] 2021-03-03 2021-03-03 Telephone Alicia, 1.2.840.1 [id number] 2099 [id number] Methodi 11:20:00 11:48:51 Consult Shell 47937.1.[address] [place] 3.430.2.7 Hospi ta .3.421102 l .8 2021-02-27 2021-02-27 Travel 1.2.840.1 1.2.776.682 4152 649827 Methodi 00:00:00 00:00:[address] 3.430.2.7 0.2.7.3.698 Ho spita .3.818266 084.8 l .8 2021-02-19 2021-02-19 Outpatient CARLY, [facility] 2100 [id number] [place] 00:00:00 00:00:00 PIMPRAPA 626 [facility] 2021-02-17 2021-02-17 Outpatient [facility] [id number] [place] 00:00:00 00:00:00 482 Method i 2021-02-17 2021-02-17 Outpatient STACI, [facility] [id number] 406 [place] 00:00:00 00:00:00 PROCTOR 706 Method i 2021-02-10 2021-02-10 Outpatient TAVARES, [facility] [id number] 790 [place] 00:00:00 00:00:00 PEGGY 856 Method i 2021-02-07 2021-02-07 Outpatient ALICIA, [facility] [id number] [place] 00:00:00 00:00:00 SHELL 793 Method i 2021-01-30 2021-01-31 Outpatient IMELDA, [facility] [id number] 174 [place] 00:00:00 00:00:00 KRISTY 451 Method i 2021-01-25 2021-01-25 Emergency KENA KILLIAN [facility] 064 [id number] [place] 00:00:00 00:00:00 190 Method i 2021-01-24 2021-01-24 Outpatient VEJPONVIRYA, [facility] 2100 [id number] [place] 00:00:00 00:00:00 PIMPRAPA 711 Metho di 2021-01-09 2021-01-09 Outpatient [facility] [id number] [place] 00:00:00 00:00:00 247 Method i 2020-12-29 2020-12-29 Emergency VASQUEZ, [facility] 064 [id number] 98 [place] 00:00:00 00:00:00 CRISTÓBAL 225 Method i 2020-12-23 2020-12-23 Outpatient PRASANTH, [facility] [id number] 498 [place] 00:00:00 00:00:00 EDDIE 305 Method i 2020-12-11 2020-12-11 Emergency VASQUEZ, [facility] 064 [id number] 96 [place] 00:00:00 00:00:00 CRISTÓBAL 030 Method i 2020-12-08 2020-12-08 Emergency TRISTAN, [facility] 064 [id number] 26 [place] 00:00:00 00:00:00 TRUNG 699 Method i 2020-11-25 2020-11-26 Office Doug Estevez [facility] Encounter/ Legacy 00:00:00 00:00:00 Visit Symone [place]au 0391 Communi [id number] [facility] 2020-11-25 2020-11-26 Office Doug Estevez [facility] Encounter/ Legacy 00:00:00 00:00:00 Visit Symone [place] [id number] 5210 Communi [id number] [facility] 2020-11-18 2020-11-18 Outpatient STACI, [facility] [id number] [place] 00:00:00 00:00:00 PROCTOR 729 Method i 2020-11-02 2020-11-02 Emergency HALEY, [facility] [id number] [place] 00:00:00 00:00:00 ROGER 241 Method i 2020-10-29 2020-10-29 Outpatient SMALL, [facility] [id number] [place] 00:00:00 00:00:00 PROCTOR 983 Method i 2020-10-25 2020-10-25 Outpatient VEJPONGSA, [facility] 2100 [id number] [place] 00:00:00 00:00:00 PIMPRAPA 573 Metho di 2020-10-24 2020-10-24 Outpatient VEJPONGSA, [facility] 2100 [id number] [place] 00:00:00 00:00:00 PIMPRAPA 921 Metho di 2020-10-18 2020-10-19 Emergency HOPE, [facility] 064 [id number] 58 [place] 00:00:00 00:00:00 TRUNG 724 Method i 2020-10-18 2020-10-18 Outpatient SMALL, [facility] [id number] [place] 00:00:00 00:00:00 PROCTOR 224 Method i 2020-10-11 2020-10-11 Emergency COURTNEY, [facility] 064 [id number] 52 [place] 00:00:00 00:00:00 TRUNG 080 Method i 2020-10-09 2020-10-09 Outpatient PRASANTH, [facility] [id number] 499 [place] 00:00:00 00:00:00 EDDIE 020 Method i 2020-10-01 2020-10-01 Outpatient AHMED, [facility] [id number] [place] 00:00:00 00:00:00 MOHAMMAD 768 Metho di 2020-09-26 2020-09-26 Outpatient SMALL, [facility] [id number] [place] 00:00:00 00:00:00 PROCTOR 047 Method i 2020-09-13 2020-09-13 Outpatient PRASANTH, [facility] [id number] 045 [place] 00:00:00 00:00:00 EDDIE 249 Method i 2020-09-11 2020-09-11 Outpatient VEJPONGSA, [facility] 2100 [id number] [place] 00:00:00 00:00:00 PIMPRAPA 754 Metho di 2020-08-23 2020-08-23 Outpatient AHMED, [facility] [id number] [place] 00:00:00 00:00:00 MOHAMMAD 132 Metho di 2020-08-19 2020-08-21 Outpatient MELTON, [facility] [id number] [place] 00:00:00 00:00:00 TRUNG 187 Method i 2020-07-31 2020-08-01 Outpatient ARREDONDO, [place] [id number] [place] 00:00:00 00:00:00 RG 628 Met hodi 2020-07-16 2020-07-16 Emergency HOPE, [facility] 06 [id number] 18 [place] 00:00:00 00:00:00 TRUNG 600 Method i 2020-07-05 2020-07-05 Outpatient BROCK, [facility] [id number] [place] 00:00:00 00:00:[address] [facility] 2020-07-05 2020-07-05 Emergency VASQUEZ, [facility] [id number] 62 [place] 00:00:00 00:00:00 CRISTÓBAL 088 Method i 2020-06-28 2020-06-28 Outpatient SMALL, [facility] [id number] [place] 00:00:00 00:00:00 PROCTOR 174 Method i 2020-06-27 2020-06-27 Outpatient PRASANTH, [facility] [id number] [place] 00:00:00 00:00:00 EDDIE 576 Method i 2020-06-24 2020-06-24 Outpatient ISTRE, [facility] [id number] [place] 00:00:00 00:00:00 SHELL 509 Method i 2020-06-19 2020-06-20 Emergency TEMPLE, [facility] 06 [id number] [place] 00:00:00 00:00:00 NADIM 685 Method i 2020-06-11 2020-06-11 Outpatient SMALL, [facility] [id number] [place] 00:00:00 00:00:00 PROCTOR 214 Method i 2020-06-11 2020-06-11 Outpatient SMALL, [facility] [id number] [place] 00:00:00 00:00:00 PROCTOR 956 Method i 2020-06-06 2020-06-06 Outpatient ISTRE, [facility] [id number] [place] 00:00:00 00:00:00 SHELL 498 Method i 2020-06-03 2020-06-03 Outpatient ISTRE, [facility] [id number] [place] 00:00:00 00:00:00 SHELL 193 Method i 2020-06-03 2020-06-03 Outpatient ISTRE, [facility] [id number] [place] 00:00:00 00:00:00 SHELL 363 Method i 2020-05-26 2020-05-27 Outpatient SMALL, [facility] [id number] [place] 00:00:00 00:00:00 HAYLEE 766 Method i 2020-05-24 2020-05-24 Emergency JOSSY, [place] [address] [id number] 24 [place] 00:00:00 00:00:00 BELKIS 964 Method i 2020-05-23 2020-05-23 Emergency FORMAN, [facility] 064 [id number] 56 [place] 00:00:00 00:00:00 TANIA 926 Method i 2020 2020 Outpatient ISTRE, [facility] [id number] [place] 00:00:00 00:00:00 SHELL 882 Method i 2020 2020 Emergency KENDIG, [facility] [id number] 65 [place] 00:00:00 00:00:00 KALIF 304 Method i 2020-05-20 2020-05-20 Outpatient ISTRE, [facility] [id number] [place] 00:00:00 00:00:00 SHELL 217 Method i 2020-05-13 2020-05-13 Outpatient MIRELES, [facility] [id number] [place] 00:00:00 00:00:00 TRACILYN Healt 2020-05-11 2020-05-11 Emergency HOPE, [facility] [id number] 87 [place] 00:00:00 00:00:00 TRUNG 164 Method i 2020-05-07 2020-05-07 Outpatient ROGER ZAPATA [facility] [id number] [place] 07:48:18 07:48:18 Health 2020-04-15 2020-04-15 Emergency KENA KILLIAN [facility] [id number] [place] 00:00:00 00:00:[address] 2020-04-01 2020-04-01 Emergency KI, [facility] [id number] [place] 00:00:00 00:00:00 KALIF [address] 2020-03-23 2020-03-24 Inpatient CHRISTA, [facility] [id number] [place] 00:00:00 00:00:00 STEPHY 252 Method i 2020-03-23 2020-03-23 Emergency HOPE, [facility] 06 [id number] [place] 00:00:00 00:00:00 TRUNG [address] 2020-03-20 2020-03-20 Emergency ALTAGRACIA VILLASENOR [facility] [id number] [place] 00:00:00 00:00:[address] 2020-02-29 2020-03-01 Emergency DE KARLEY, [place] [address] [id number] [place] 00:00:00 00:00:00 EMY 731 Me thodi 2020-02-05 2020-02-06 Emergency ENE, [place] [address] [id number] [place] 00:00:00 00:00:00 KEM [address] 2020-02-03 2020-02-03 Emergency NG, [place] [address] [id number] [place] 00:00:00 00:00:00 EMY [address] 2019-12-20 2019-12-21 Emergency ENE, [place] [address] [id number] [place] 00:00:00 00:00:00 KEM [address] 2019-12-14 2019-12-14 Emergency KI, [facility] [id number] [place] 00:00:00 00:00:00 KALIF [address] 2019-12-11 2019-12-11 Emergency HOPE, [facility] 06 [id number] 68 [place] 00:00:00 00:00:00 TRUNG [address] 2019-12-08 2019-12-08 Emergency SUSHIL, [place] [address] [id number] [place] 00:00:00 00:00:00 TANIAMargyRUSTAM [address] 2019-11-24 2019-11-24 Outpatient ROGER ZAPATA [facility] [id number] [place] 00:00:00 00:00:00 Health 2019-11-21 2019-11-21 Emergency NELSON VILLAGRAN [place] [id number] [place] 00:00:00 00:00:[address] 2019-11-14 2019-11-14 Outpatient ROGER ZAPATA [facility] [id number] [place] 06:55:06 06:55:06 Health 2019-11-13 2019-11-13 Outpatient [facility] [id number] [place] 00:00:00 00:00:00 Health 2019-11-10 2019-11-11 Emergency HOPE, [facility] [id number] [place] [address] 00:00:00 00:00:00 TRUNG [place] [facility] 2019-11-07 2019-11-07 Outpatient [facility] [id number] [place] 14:24:03 14:24:03 Health 2019-11-07 2019-11-07 Outpatient [facility] [id number] [place] 12:22:44 12:22:44 Health 2019-11-07 2019-11-07 Outpatient [facility] [id number] [place] 00:00:00 00:00:00 Health 2019-11-07 2019-11-07 Outpatient [facility] [id number] [place] 00:00:00 00:00:00 Health 2019-10-30 2019-10-30 Outpatient [facility] [id number] [place] 11:49:58 11:49:58 Health 2019-10-30 2019-10-30 Outpatient [facility] [id number] [place] 00:00:00 00:00:00 Health 2019-10-12 2019-10-12 Outpatient [facility] [id number] [place] 00:00:00 00:00:00 Health 2019-10-10 2019-10-10 Outpatient [facility] [id number] [place] 08:15:33 08:15:33 Health 2019-10-09 2019-10-09 Outpatient [facility] [id number] [place] 00:00:00 00:00:00 Health 2019-09-25 2019-09-25 Outpatient [facility] [id number] [place] 00:00:00 00:00:00 Health 2019-09-19 2019-09-19 Outpatient [facility] [id number] [place] 15:17:15 15:17:15 Health 2019-09-12 2019-09-12 Outpatient [facility] [id number] [place] 09:33:27 09:33:27 Health 2019-09-12 2019-09-12 Outpatient [facility] [id number] [place] 08:35:47 08:35:47 Health 2019-09-12 2019-09-12 Outpatient [facility] [id number] [place] 00:00:00 00:00:00 2019-09-09 2019-09-09 Emergency HOPE, [place] [id number] [place] 00:00:00 00:00:00 TRUNG [address] 2019-08-25 2019-08-25 Outpatient [facility] [id number] [place] 06:54:32 06:54:32 Health 2019-08-24 2019-08-24 Outpatient [facility] [id number] [place] 00:00:00 00:00:00 2019-08-23 2019-08-23 Outpatient [facility] [id number] [place] 00:00:00 00:00:00 Health 2019-08-05 2019-08-05 Emergency VANDER [facility] [id number] [place] 00:00:00 00:00:00 OTILIO, [address] 2019-08-03 2019-08-03 Emergency BARRON HARDIN [place] [id number] [place] 00:00:00 00:00:[address] 2019-07-24 2019-07-24 Outpatient [facility] [id number] [place] 08:35:14 08:35:14 Health 2019-06-21 2019-06-21 Outpatient [facility] [id number] [place] 00:00:00 00:00:00 Health 2019-06-15 2019-06-16 Emergency HOPE, [facility] [id number] [place] 00:00:00 00:00:00 TRUNG [address] 2019-06-15 2019-06-15 Emergency [facility] [id number] [place] 14:03:00 14:03:00 Health 2019-06-14 2019-06-14 Outpatient [facility] [id number] [place] 00:00:00 00:00:00 Health 2019-06-08 2019-06-08 Outpatient [facility] [id number] [place] 13:49:26 13:49:26 Health 2019-06-08 2019-06-08 Outpatient [facility] [id number] [place] 13:11:00 13:11:00 [facility] 2019-06-08 2019-06-08 Outpatient [facility] [id number] [place] 00:00:00 00:00:00 [facility] 2019-06-07 2019-06-07 Emergency [facility] [id number] [place] 12:06:12 12:06:12 [facility] 2019-06-07 2019-06-07 Emergency [facility] [id number] [place] 10:57:48 10:57:48 [facility] 2019-03-15 2019-03-15 Outpatient [facility] [id number] [place] 14:00:36 14:00:36 [facility] 2019-03-15 2019-03-15 Outpatient [facility] [id number] [place] 12:20:09 12:20:09 [facility] 2019-03-15 2019-03-15 Outpatient [facility] [id number] [place] 00:00:00 00:00:00 [facility] 2019-01-25 2019-01-25 Outpatient [facility] [id number] [place] 10:20:47 10:20:47 [facility] 2019-01-13 2019-01-13 Outpatient [facility] [id number] [place] 10:25:55 10:25:55 [facility] 2019-01-03 2019-01-03 Outpatient [facility] [id number] [place] 10:33:43 10:33:43 [facility] 2019-01-03 2019-01-03 Outpatient [facility] [id number] [place] 08:40:50 08:40:50 [facility] 2019-01-03 2019-01-03 Outpatient [facility] [id number] [place] 07:58:31 07:58:31 Health 2019-01-03 2019-01-03 Outpatient [facility] [id number] [place] 00:00:00 00:00:00 [facility] 2018-12-29 2018-12-29 Outpatient [facility] [id number] [place] 00:00:00 00:00:00 [facility] 2018-12-27 2018-12-27 Outpatient [facility] [id number] [place] 00:00:00 00:00:00 [facility] 2018-12-26 2018-12-26 Outpatient [facility] [id number] [place] 16:37:58 16:37:58 Health 2018-12-09 2018-12-09 Outpatient [facility] [id number] [place] 16:51:56 16:51:56 Health 2018-12-09 2018-12-09 Outpatient [facility] [id number] [place] 14:15:31 14:15:31 Health 2018-12-09 2018-12-09 Outpatient [facility] [id number] [place] 00:00:00 00:00:00 [facility] 2018-11-26 2018-11-26 Emergency [facility] [id number] [place] 16:08:40 16:08:40 [facility] 2018-01-17 2018-01-17 Outpatient E MYRNA CEDENO [facility] [id number] [place] 10:49:00 12:30:00 [facility] 2017-12-28 2017-12-28 Outpatient E MILES [facility] [id number] [place] 10:12:00 12:25:00 PAUL [facility] 2017-12-20 2017-12-20 Outpatient E MYRNA CEDENO [facility] [id number] [place] 23:13:00 23:50:00 Medica l Center 2017-10-15 2017-10-15 Outpatient E SHEIKH [facility] [id number] [place] 09:57:00 11:15:00 [facility] [place] Results Test Description Test Time Test Comments Results Result Comments Source ECG 12 lead 2022-03-24 04:27:49 Test Item Value Reference Range Interpretation Comme nts Ventricular rate (test code = 253) Atrial rate (test code = 255) OH interval (test code = 266) QRSD interval [...] of 28-NOV-2021 10:26,-No significant change was found- [facility] 12 [id number] 04:27:49 Test Item Value Reference Range Interpretation Comments Ventricular rate (test code = 253) Atrial rate (test code = 255) OH interval (test code = 266) QRSD interval [...] of 28-NOV-2021 10:26,-No significant change was found- [address]2022-12-13 04:27:49 Test Item Value Reference Range Interpretation Comments Ventricular rate (test code = 253) Atrial rate (test code = 255) OH interval (test code = 266) QRSD interval [...] of 28-NOV-2021 10:26,-No significant change was found- [address]2022-12-13 04:27:49 Test Item Value Reference Range Interpretation Comments Ventricular rate (test 71 code = 253) Atrial rate (test code 71 = 255) OH interval (test code 124 = 266) QRSD [...] of 28-NOV-2021 10:26,-No significant change was found- [address]2022-12-13 04:27:49 Test Item Value Reference Range Interpretation Comments Ventricular rate (test 71 code = 253) Atrial rate (test code 71 = 255) OH interval (test code 124 = 266) QRSD [...] of 28-NOV-2021 10:26,-No significant change was found- [address]2022-12-13 04:27:49 Test Item Value Reference Range Interpretation Comments Ventricular rate (test 71 code = 253) Atrial rate (test code 71 = 255) OH interval (test code 124 = 266) QRSD [...] of 28-NOV-2021 10:26,-No significant change was found- [address]2022-12-13 04:27:49 Test Item Value Reference Range Interpretation Comments Ventricular rate (test 71 code = 253) Atrial rate (test code 71 = 255) OH interval (test code 124 = 266) QRSD [...] of 28-NOV-2021 10:26,-No significant change was found- [address]2022-12-13 04:27:49 Test Item Value Reference Range Interpretation Comments Ventricular rate (test 71 code = 253) Atrial rate (test code 71 = 255) OH interval (test code 124 = 266) QRSD [...] of 28-NOV-2021 10:26,-No significant change was found- [place] [address] [id number] 04:27:49 Test Item Value Reference Range Interpretation Comments Ventricular rate (test 71 code = 253) Atrial rate (test code 71 = 255) OH interval (test code 124 = 266) QRSD [...] of 28-NOV-2021 10:26,-No significant change was found- [facility] [place]2022-11-10 23:39:00 Test Item Value Reference Range Interpretation Comments Urine culture (test SEE COMMENT Bacteriu brandon screen code = 1071952) negative. [facility] [place]2022-11-10 23:39:00 Test Item Value Reference Range Interpretation Comments Urine culture (test SEE COMMENT Bacteriu brandon screen code = 3204855) negative. [facility] [place]2022-11-10 23:39:00 Test Item Value Reference Range Interpretation Comments Urine culture (test SEE COMMENT Bacteriu brandon screen code = 1127081) negative. [facility] [place]2022-11-10 23:39:00 Test Item Value Reference Range Interpretation Comments Urine culture (test SEE COMMENT Bacteriu brandon screen code = 3339741) negative. [facility] [place]2022-11-10 23:39:00 Test Item Value Reference Range Interpretation Comments Urine culture (test SEE COMMENT Bacteriu brandon screen code = 4423968) negative. [facility] [id number] 23:39:00 Test Item Value Reference Range Interpretation Comments Urine culture (test SEE COMMENT Bacteriu brandon screen code = 4061171) negative. [facility] [place]2022-11-10 23:39:00 Test Item Value Reference Range Interpretation Comments Urine culture (test SEE COMMENT Bacteriu brandon screen code = 8377975) negative. [facility] [id number] 23:39:00 Test Item Value Reference Range Interpretation Comments Urine culture (test SEE COMMENT Bacteriu brandon screen code = 3163702) negative. [facility] [place]2022-11-10 23:39:00 Test Item Value Reference Range Interpretation Comments Urine culture (test SEE COMMENT Bacteriu brandon screen code = 1031833) negative. [facility] [place]2022-11-10 23:39:00 Test Item Value Reference Range Interpretation Comments Urine culture (test SEE COMMENT Bacteriu brandon screen code = 5858444) negative. [facility] [id number] 23:39:00 Test Item Value Reference Range Interpretation Comments Urine culture (test SEE COMMENT Bacteriu brandon screen code = 1834449) negative. [facility] [id number] 23:39:00 Test Item Value Reference Range Interpretation Comments Urine culture (test SEE COMMENT Bacteriu brandon screen code = 6808846) negative. [facility] [id number] 22:17:00 Test Item Value Reference Range Interpretation Comments Hepatitis B surface NON-REACTIVE NON-REACTIVE Ag (test code = 5196-1) RAC (test code = RAC) Performing Organization Information: Site ID: RGA [facility] Address: [address] [place] [address] Director: Rajinder Grant [facility] with reflex to [id number] 22:17:00 Test Item Value Reference Range Interpretation Comments RPR (test code = NON-REACTIVE NON-REACTIVE 97663-9) RAC (test code = Performing Organization RAC) Information: Site ID: RGA [facility]: [facility] Address: [address] [place] [address] Director: Rajinder Parker [facility] C virus (HCV), quantitative [id number] 22:17:00 Test Item Value Reference Interpretation Comments Range HCV RNA, <15 NOT DETECTED NOT DETECTED quantitative PCR IU/mL (test code = 72084-8) HCV viral log <1.18 NOT DETECTED NOT DETECTED This bhupendra t was (test code = Log IU/mL performed using 05269-5) Real-Time Polym erase ChainReaction. Reportable Rang e: 15 IU/mL to 100,00 0,000 IU/mL(1.18 Log IU/mL to 8.00 Log IU/ mL). The analytical performance characteristics of thisassay have been determined by [employer]. Th e modifications h ave not been cleare d or approved bythe FDA. This assay has been validated pursu ant to the CLIA regulations and is used for clinic al purposes. For m ore information on this test, go to:http://educa Infermedicaon. [employer] /faq/TJJ61f4(Th is link is being provided for informational/e ducat ional purposes only.) RAC (test code = Performing RAC) Organization Information: Site ID: IG [facility] Address: [address] [place] [address] Director: Dr. Rajinder Grant [facility] C [id number] 22:17:00 Test Item Value Reference Interpretation Comments Range Hepatitis C Ab (test REACTIVE NON-REACTIVE A code = 34691-8) Signal/cutoff (test >11.00 See_Comment H Based o n this code = 92939-1) result, the sample will be testedf or [...] RAC) Organization Information: Site ID: RGA [facility] Address: [address] [place] [address] Director: Rajinder Grant Lab Interpretation Abnormal (test code = 39305-4) [facility]V type 1/2 combined Ab, [id number] 22:17:00 Test Item Value Reference Interpretation Comments Range HSV 1 IgM NEGATIVE (test code = 78812-9) HSV 2 IgM NEGATIVE REFERENCE RANG E: NEGATIVE HSV (test IgM is detectab le in serum code = from >90% of pa tracey 17863-7) primary HSV inf ection. However, HSV Ig [...] performancechar acteristics have been deter mined by [facility].It has not been cleared or appr luis by FDA. This assay hasb een validated pursuant to the CLIA regulations and isused for clinical purpos es. RAC (test Performing code = Organization RAC) Information: Site ID: EZ Name: [facility], Address: [address] [place] [address] Director: Crista Camacho MD,PhD,BARI [facility]aleHIV 1/2 antigen/antibody, fourth generation, with reflexes 2022-02-11 22:17:00 Test Item Value Reference Range Interpretation Comments HIV NON-REACTIVE NON-REACTIVE HIV-1 antigen a nd antigen/ant HIV-1/HIV-2 ant ibodies ibody 4th were notdetecte d. There gen (test is no laborator y evidence code = of HIVinfection . PLEASE 69510-6) NOTE: This info rmation has been disclo [...] ad ditional information ple ase refer tohttp://educat ion.[employer]/ faq/CVR820 (This link is b eing provided for informational/e ducational purposes only.) The performance of this assay has not been clinicallyvalid ated in patients less t lagunas 2 years old. RAC (test Performing code = RAC) Organization Information: Site ID: RGA [facility]: [facility] Address: [address] [place] [address] Director: Rajinder Grant [facility]aleHSV 1 and 2 specific Ab [id number] 22:17:00 Test Item Value Reference Interpretation Comments [...] ease refer to http://educatio n.Ques tDiagnostics.co m/faq/ KVK789 (This li nk is being provided for informational/e ducati onal purposes o nly.) RAC (test code = Performing RAC) Organization Information: Site ID: IG Name: [facility] Address: [address] [place] [address] Director: Dr. Rajinder Grant Lab Interpretation Abnormal (test code = 38134-5) [facility]aleHepatitis B surface [id number] 22:17:00 Test Item Value Reference Range Interpretation Comments Hepatitis B surface NON-REACTIVE NON-REACTIVE Ag (test code = 5196-1) RAC (test code = RAC) Performing Organization Information: Site ID: RGA [facility]: [facility] Address: [address] [place] [address] Director: Rajinder Grant [facility]RP with reflex to [id number] 22:17:00 Test Item Value Reference Range Interpretation Comments RPR (test code = NON-REACTIVE NON-REACTIVE 17263-4) RAC (test code = Performing Organization RAC) Information: Site ID: RGA [facility] Address: [address] [place] [address] Director: Rajinder Grant [facility] C virus (HCV), quantitative [id number] 22:17:00 Test Item Value Reference Interpretation Comments Range HCV RNA, <15 NOT DETECTED NOT DETECTED quantitative PCR IU/mL (test code = 15737-7) HCV viral log <1.18 NOT DETECTED NOT DETECTED This bhupendra t was (test code = Log IU/mL performed using 39439-4) Real-Time Polym erase ChainReaction. Reportable Rang e: 15 IU/mL to 100,00 0,000 IU/mL(1.18 Log IU/mL to 8.00 Log IU/ mL). The analytical performance characteristics of thisassay have been determined by [employer]. Th e modifications h ave not been cleare d or approved bythe FDA. This assay has been validated pursu ant to the CLIA regulations and is used for clinic al purposes. For m ore information on this test, go to:http://educa tion. [employer] /faq/CZI56l1(Th is link is being provided for informational/e ducat ional purposes only.) RAC (test code = Performing RAC) Organization Information: Site ID: IG [facility] Address: [address] [place] [address] Director: Dr. Rajinder Grant [facility] C [id number] 22:17:00 Test Item Value Reference Interpretation Comments Range Hepatitis C Ab (test REACTIVE NON-REACTIVE A code = 30382-6) Signal/cutoff (test >11.00 See_Comment H Based o n this code = 53441-4) result, the sample will be testedf or HCV RNA by a Nucleic Acid Amplification T est (NAAT)to determ ine if the patient has a current activeinfection . [Automated message] The system which generated this result transmit aydin reference range : <=1.00. The reference range was not used to interpret this result as normal/abnormal . RAC (test code = Performing [facility]) Organization Information: Site ID: RGA Name: [facility] Address: [address] [place] [address] Director: Rajinder Grant Lab Interpretation Abnormal (test code = 63000-6) [facility]ale[facility]V type 1/2 combined Ab, [id number] 22:17:00 Test Item Value Reference Interpretation Comments Range HSV 1 IgM NEGATIVE (test code = 81191-7) HSV 2 IgM NEGATIVE REFERENCE RANG E: NEGATIVE HSV (test IgM is detectab le in serum code = from >90% of [facility] 54689-5) primary HSV inf ection. However, HSV Ig [...] performancechar acteristics have been deter mined by [facility].It has not been cleared or appr luis by FDA. This assay hasb een validated pursuant to the CLIA regulations and isused for clinical purpos es. RAC (test Performing code = Organization RAC) Information: Site ID: EZ Name: [facility], Address: [address] [place] [address] Director: Crista Camacho MD,PhD,BARI [facility]aleHIV 1/2 antigen/antibody, fourth generation, with reflexes 2022-02-11 22:17:00 Test Item Value Reference Range Interpretation Comments HIV NON-REACTIVE NON-REACTIVE HIV-1 antigen a nd antigen/ant HIV-1/HIV-2 ant ibodies ibody 4th were notdetecte d. There gen (test is no laborator y evidence code = of HIVinfection . PLEASE 77729-5) NOTE: This info rmation has been disclo [...] ad ditional information ple ase refer tohttp://educat ion.[employer]/ faq/IXY419 (This link is b eing provided for informational/e ducational purposes only.) The performance of this assay has not been clinicallyvalid ated in patients less t lagunas 2 years old. RAC (test Performing code = RAC) Organization Information: Site ID: RGA [facility] Address: [address] [place] [address] Director: Rajinder Grant [facility]valeHSV 1 and 2 specific Ab [id number] 22:17:00 Test Item Value Reference Interpretation Comments [...] ease refer to http://educatio n.Ques tDiagnostics.co m/faq/ QFB738 (This li nk is being provided for informational/e ducati onal purposes o nly.) RAC (test code = Performing RAC) Organization Information: Site ID: IG Name: [facility] Address: [address] [place] [address] Director: Dr. Rajinder Grant Lab Interpretation Abnormal (test code = 51290-5) [facility] B surface [id number] 22:17:00 Test Item Value Reference Range Interpretation Comments Hepatitis B surface NON-REACTIVE NON-REACTIVE Ag (test code = 5196-1) RAC (test code = RAC) Performing Organization Information: Site ID: RGA [facility]: [facility] Address: [address] [place] [address] Director: Rajinder Grant [facility]valeRPR with reflex to [id number] 22:17:00 Test Item Value Reference Range Interpretation Comments RPR (test code = NON-REACTIVE NON-REACTIVE 86069-0) RAC (test code = Performing Organization RAC) Information: Site ID: RGA [facility] Address: [address] [place] [address] Director: Rajinder Grant [facility] C virus (HCV), quantitative [id number] 22:17:00 Test Item Value Reference Interpretation Comments Range HCV RNA, <15 NOT DETECTED NOT DETECTED quantitative PCR IU/mL (test code = 06689-6) HCV viral log <1.18 NOT DETECTED NOT DETECTED This bhupendra t was (test code = Log IU/mL performed using 60497-1) Real-Time Polym erase ChainReaction. Reportable Rang e: 15 IU/mL to 100,00 0,000 IU/mL(1.18 Log IU/mL to 8.00 Log IU/ mL). The analytical performance characteristics of thisassay have been determined by [employer]. Th e modifications h ave not been cleare d or approved bythe FDA. This assay has been validated pursu ant to the CLIA regulations and is used for clinic al purposes. For m ore information on this test, go to:http://educa dylon. [employer] /faq/FNJ11k8(Th is link is being provided for informational/e ducat ional purposes only.) RAC (test code = Performing RAC) Organization Information: Site ID: IG [facility] Address: [address] [place] [address] Director: Dr. Rajinder Grant [facility]valeHepatitis C [id number] 22:17:00 Test Item Value Reference Interpretation Comments Range Hepatitis C Ab (test REACTIVE NON-REACTIVE A code = 06768-8) Signal/cutoff (test >11.00 See_Comment H Based o n this code = 32260-0) result, the sample will be testedf or [...] RAC) Organization Information: Site ID: RGA [facility] Address: [address] [place] [address] Director: Rajinder Grant Lab Interpretation Abnormal (test code = 90578-7) [facility], [id number] 22:17:00 Test Item Value Reference Interpretation Comments Range HSV 1 IgM NEGATIVE (test code = 40928-2) HSV 2 IgM NEGATIVE REFERENCE RANG E: NEGATIVE HSV (test IgM is detectab le in serum code = from >90% of [place] tracey 00423-6) primary HSV inf ection. However, HSV Ig [...] performancechar acteristics have been deter mined by [facility].It has not been cleared or appr luis by FDA. This assay hasb een validated pursuant to the CLIA regulations and isused for clinical purpos es. RAC (test Performing code = Organization RAC) Information: Site ID: EZ Name: [facility], Address: [address] [place] [address] Director: Crista Camacho MD,PhD,BARI [facility]aleHIV 1/2 antigen/antibody, fourth generation, with reflexes 2022-02-11 22:17:00 Test Item Value Reference Range Interpretation Comments HIV NON-REACTIVE NON-REACTIVE HIV-1 antigen a nd antigen/ant HIV-1/HIV-2 ant ibodies ibody 4th were notdetecte d. There gen (test is no laborator y evidence code = of HIVinfection . PLEASE 06825-3) NOTE: This info rmation has been disclo [...] ad ditional information ple ase refer tohttp://educat ion.[employer]/ faq/ZWZ948 (This link is b eing provided for informational/e ducational purposes only.) The performance of this assay has not been clinicallyvalid ated in patients less t lagunas 2 years old. RAC (test Performing code = RAC) Organization Information: Site ID: RGA [facility]: [facility] Address: [address] [place] [address] Director: Rajinder Grant [facility]aleHSV 1 and 2 specific Ab [id number] 22:17:00 Test Item Value Reference Interpretation Comments [...] ease refer to http://educatio n.Ques tDiagnostics.co m/faq/ BWK874 (This li nk is being provided for informational/e ducati onal purposes o nly.) RAC (test code = Performing RAC) Organization Information: Site ID: IG Name: [facility] Address: [address] [place] [address] Director: Dr. Rajinder Grant Lab Interpretation Abnormal (test code = 06854-6) [facility] [place] [place] surface [id number] 22:17:00 Test Item Value Reference Range Interpretation Comments Hepatitis B surface NON-REACTIVE NON-REACTIVE Ag (test code = 5196-1) RAC (test code = RAC) Performing Organization Information: Site ID: RGA [facility] Address: [address] [place] [address] Director: Rajinder Grant [facility]valeRPR with reflex to [id number] 22:17:00 Test Item Value Reference Range Interpretation Comments RPR (test code = NON-REACTIVE NON-REACTIVE 11134-5) RAC (test code = Performing Organization RAC) Information: Site ID: RGA [facility] Address: [address] [place] [address] Director: Rajinder Grant [facility] C virus (HCV), quantitative [id number] 22:17:00 Test Item Value Reference Interpretation Comments Range HCV RNA, <15 NOT DETECTED NOT DETECTED quantitative PCR IU/mL (test code = 04448-9) HCV viral log <1.18 NOT DETECTED NOT DETECTED This bhupendra t was (test code = Log IU/mL performed using 41281-7) Real-Time Polym erase ChainReaction. Reportable Rang e: 15 IU/mL to 100,00 0,000 IU/mL(1.18 Log IU/mL to 8.00 Log IU/ mL). The analytical performance characteristics of thisassay have been determined by [employer]. Th e modifications h ave not been cleare d or approved bythe FDA. This assay has been validated pursu ant to the CLIA regulations and is used for clinic al purposes. For m ore information on this test, go to:http://DVTela Infermedicaon. [employer] /faq/LYI00x6(Th is link is being provided for informational/e ducat ional purposes only.) RAC (test code = Performing RAC) Organization Information: Site ID: IG [facility] Address: [address] [place] [address] Director: Dr. Rajinder Grant [facility] [place] [place] C [id number] 22:17:00 Test Item Value Reference Interpretation Comments Range Hepatitis C Ab (test REACTIVE NON-REACTIVE A code = 87570-1) Signal/cutoff (test >11.00 See_Comment H Based o n this code = 98864-2) result, the sample will be testedf or [...] RAC) Organization Information: Site ID: RGA Name: [facility] Address: [address] [place] [address] Director: Rajinder Grant Lab Interpretation Abnormal (test code = 97650-3) [facility] type 1/2 combined Ab, [id number] 22:17:00 Test Item Value Reference Interpretation Comments Range HSV 1 IgM NEGATIVE (test code = 98058-3) HSV 2 IgM NEGATIVE REFERENCE RANG E: NEGATIVE HSV (test IgM is detectab le in serum code = from >90% of [place] tracey 49200-8) primary HSV inf ection. However, HSV Ig [...] performancechar acteristics have been deter mined by [facility].It has not been cleared or appr luis by FDA. This assay hasb een validated pursuant to the CLIA regulations and isused for clinical purpos es. RAC (test Performing code = Organization RAC) Information: Site ID: EZ Name: [facility], Address: [address] [place] [address] Director: Crista Camacho MD,PhD,BARI [facility]/antibody, fourth generation, with reflexes 2022-02-11 22:17:00 Test Item Value Reference Range Interpretation Comments HIV NON-REACTIVE NON-REACTIVE HIV-1 antigen a nd antigen/ant HIV-1/HIV-2 ant ibodies ibody 4th were notdetecte d. There gen (test is no laborator y evidence code = of HIVinfection . PLEASE 40778-9) NOTE: This info rmation has been disclo [...] ad ditional information ple ase refer tohttp://educat ion.[employer]/ faq/LGZ152 (This link is b eing provided for informational/e ducational purposes only.) The performance of this assay has not been clinicallyvalid ated in patients less t lagunas 2 years old. RAC (test Performing code = RAC) Organization Information: Site ID: BEBA [facility]: [facility] Address: [address] [place] [address] Director: Rajinder Grant [facility]aleHSV 1 and 2 specific Ab [id number] 22:17:00 Test Item Value Reference Interpretation Comments [...] ease refer to http://educatio nReza tDiagnostics.co m/faq/ FHB885 (This li nk is being provided for informational/e ducati onal purposes o nly.) RAC (test code = Performing RAC) Organization Information: Site ID: IG Name: [facility] Address: [address] [place] [address] Director: Dr. Rajinder Grant Lab Interpretation Abnormal (test code = 76349-0) [facility]aleHepatitis B surface [id number] 22:17:00 Test Item Value Reference Range Interpretation Comments Hepatitis B surface NON-REACTIVE NON-REACTIVE Ag (test code = 5196-1) RAC (test code = RAC) Performing Organization Information: Site ID: RGA [facility]: [facility] Address: [address] [place] [address] Director: Rajinder Grant [facility] InstituteRPR with reflex to [id number] 22:17:00 Test Item Value Reference Range Interpretation Comments RPR (test code = NON-REACTIVE NON-REACTIVE 13124-5) RAC (test code = Performing Organization RAC) Information: Site ID: RGA [facility] Address: [address] [place] [address] Director: Rajinder Grant [facility] C virus (HCV), quantitative [id number] 22:17:00 Test Item Value Reference Interpretation Comments Range HCV RNA, <15 NOT DETECTED NOT DETECTED quantitative PCR IU/mL (test code = 24728-1) HCV viral log <1.18 NOT DETECTED NOT DETECTED This bhupendra t was (test code = Log IU/mL performed using 32057-9) Real-Time Polym erase ChainReaction. Reportable Rang e: 15 IU/mL to 100,00 0,000 IU/mL(1.18 Log IU/mL to 8.00 Log IU/ mL). The analytical performance characteristics of thisassay have been determined by [employer]. Th e modifications h ave not been cleare d or approved bythe FDA. This assay has been validated pursu ant to the CLIA regulations and is used for clinic al purposes. For m ore information on this test, go to:http://educa tion. [employer] /faq/BKF60e6(Th is link is being provided for informational/e ducat ional purposes only.) RAC (test code = Performing RAC) Organization Information: Site ID: IG [facility] Address: [address] [place] [address] Director: Dr. Rajinder Grant [facility] C [id number] 22:17:00 Test Item Value Reference Interpretation Comments Range Hepatitis C Ab (test REACTIVE NON-REACTIVE A code = 25719-5) Signal/cutoff (test >11.00 See_Comment H Based o n this code = 38517-0) result, the sample will be testedf or [...] RAC) Organization Information: Site ID: RGA Name: [facility] Address: [address] [place] [address] Director: Rajinder Grant Lab Interpretation Abnormal (test code = 98600-0) [facility], [id number] 22:17:00 Test Item Value Reference Interpretation Comments Range HSV 1 IgM NEGATIVE (test code = 03828-4) HSV 2 IgM NEGATIVE REFERENCE RANG E: NEGATIVE HSV (test IgM is detectab le in serum code = from >90% of [facility] [address]08[address]-6) primary HSV inf ection. However, HSV Ig [...] performancechar acteristics have been deter mined by [facility].It has not been cleared or appr luis by FDA. This assay hasb een validated pursuant to the CLIA regulations and isused for clinical purpos es. RAC (test Performing code = Organization RAC) Information: Site ID: EZ Name: [facility], Address: [address] [place] [address] Director: Crista Camacho MD,PhD,BARI [facility]aleHIV 1/2 antigen/antibody, fourth generation, with reflexes 2022-02-11 22:17:00 Test Item Value Reference Range Interpretation Comments HIV NON-REACTIVE NON-REACTIVE HIV-1 antigen a nd antigen/ant HIV-1/HIV-2 ant ibodies ibody 4th were notdetecte d. There gen (test is no laborator y evidence code = of HIVinfection . PLEASE 12567-7) NOTE: This info rmation has been disclo [...] ad ditional information ple ase refer tohttp://educat ion.[employer]/ faq/EOA654 (This link is b eing provided for informational/e ducational purposes only.) The performance of this assay has not been clinicallyvalid ated in patients less t lagunas 2 years old. RAC (test Performing code = RAC) Organization Information: Site ID: RGA [facility] Address: [address] [place] [address] Director: [place] Girma [facility]iddMem[facility] HospitalHSV 1 and 2 specific Ab [id number] 22:17:00 Test Item Value Reference Interpretation Comments [...] additional information, pl ease refer to http://educatio n.Swagsy.[employer] /faq/FA Q118 (This link is being provided for informational/e ducatio nal purposes on ly.) RAC (test code = Performing RAC) Organization Information: Site ID: IG [facility] Address: [address] [place] [address] Director: Dr. Rajinder Grant Lab Interpretation Abnormal (test code = 42280-9) [facility] B surface [id number] 22:17:00 Test Item Value Reference Range Interpretation Comments Hepatitis B surface NON-REACTIVE NON-REACTIVE Ag (test code = 5196-1) RAC (test code = RAC) Performing Organization Information: Site ID: RGA [facility] Address: [address] [place] [address] Director: Rajinder Grant [facility]aleRP with reflex to [id number] 22:17:00 Test Item Value Reference Range Interpretation Comments RPR (test code = NON-REACTIVE NON-REACTIVE 50064-2) RAC (test code = Performing Organization RAC) Information: Site ID: RGA [facility] Address: [address] [place] [address] Director: Rajinder Grant [facility] C virus (HCV), quantitative [id number] 22:17:00 Test Item Value Reference Interpretation Comments Range HCV RNA, <15 NOT DETECTED NOT DETECTED quantitative PCR IU/mL (test code = 34725-0) HCV viral log <1.18 NOT DETECTED NOT DETECTED This bhupendra t was (test code = Log IU/mL performed using 66406-4) Real-Time Polym erase ChainReaction. Reportable Rang e: 15 IU/mL to 100,00 0,000 IU/mL(1.18 Log IU/mL to 8.00 Log IU/ mL). The analytical performance characteristics of thisassay have been determined by [employer]. Th e modifications h ave not been cleare d or approved bythe FDA. This assay has been validated pursu ant to the CLIA regulations and is used for clinic al purposes. For m ore information on this test, go to:http://educa tion. [employer] /faq/CHL70z7(Th is link is being provided for informational/e ducat ional purposes only.) RAC (test code = Performing RAC) Organization Information: Site ID: IG [facility] Address: [address] [place] [address] Director: Dr. Rajinder Grant [facility]aleHepatitis C [id number] 22:17:00 Test Item Value Reference Interpretation Comments Range Hepatitis C Ab (test REACTIVE NON-REACTIVE A code = 26502-9) Signal/cutoff (test >11.00 See_Comment H Based o n this code = 16489-2) result, the sample will be testedf or [...] RAC) Organization Information: Site ID: RGA [facility] Address: [address] [place] [address] Director: Rajinder Grant Lab Interpretation Abnormal (test code = 65281-7) [facility]2 [facility] Ab, [id number] 22:17:00 Test Item Value Reference Interpretation Comments Range HSV 1 IgM NEGATIVE (test code = 39109-9) HSV 2 IgM NEGATIVE REFERENCE RANG E: NEGATIVE HSV (test IgM is detectab le in serum code = from >90% of [facility] 04852-9) primary HSV inf ection. However, HSV Ig [...] performancechar acteristics have been deter mined by [facility].It has not been cleared or appr luis by FDA. This assay hasb een validated pursuant to the CLIA regulations and isused for clinical purpos es. RAC (test Performing code = Organization RAC) Information: Site ID: EZ Name: [facility], Address: [address] [place] [address] Director: Crista Camacho MD,PhD,BARI [facility]aleHIV 1/2 antigen/antibody, fourth generation, with reflexes 2022-02-11 22:17:00 Test Item Value Reference Range Interpretation Comments HIV NON-REACTIVE NON-REACTIVE HIV-1 antigen a nd antigen/ant HIV-1/HIV-2 ant ibodies ibody 4th were notdetecte d. There gen (test is no laborator y evidence code = of HIVinfection . PLEASE 73432-3) NOTE: This info rmation has been disclo [...] ad ditional information ple ase refer tohttp://educat ion.[employer]/ faq/FHD628 (This link is b eing provided for informational/e ducational purposes only.) The performance of this assay has not been clinicallyvalid ated in patients less t lagunas 2 years old. RAC (test Performing code = RAC) Organization Information: Site ID: RGA [facility] Address: [address] [place] [address] Director: Rajinder Grant [facility]aleHSV 1 and 2 specific Ab [id number] 22:17:00 Test Item Value Reference Interpretation Comments [...] ease refer to http://educatio n.Ques tDiagnostics.co m/faq/ GDE928 (This li nk is being provided for informational/e ducati onal purposes o nly.) RAC (test code = Performing RAC) Organization Information: Site ID: IG Name: [facility] Address: [address] [place] [address] Director: Dr. Rajinder Grant Lab Interpretation Abnormal (test code = 21336-4) [facility] [place] [place] surface [id number] 22:17:00 Test Item Value Reference Range Interpretation Comments Hepatitis B surface NON-REACTIVE NON-REACTIVE Ag (test code = 5196-1) RAC (test code = RAC) Performing Organization Information: Site ID: RGA [facility] Address: [address] [place] [address] Director: Rajinder Grant [facility]aleRPR with reflex to [id number] 22:17:00 Test Item Value Reference Range Interpretation Comments RPR (test code = NON-REACTIVE NON-REACTIVE 92309-9) RAC (test code = Performing Organization RAC) Information: Site ID: RGA [facility] Address: [address] [place] [address] Director: Rajinder Grant [facility] C virus (HCV), quantitative [id number] 22:17:00 Test Item Value Reference Interpretation Comments Range HCV RNA, <15 NOT DETECTED NOT DETECTED quantitative PCR IU/mL (test code = 08445-4) HCV viral log <1.18 NOT DETECTED NOT DETECTED This bhupendra t was (test code = Log IU/mL performed using 49360-3) Real-Time Polym erase ChainReaction. Reportable Rang e: 15 IU/mL to 100,00 0,000 IU/mL(1.18 Log IU/mL to 8.00 Log IU/ mL). The analytical performance characteristics of thisassay have been determined by [employer]. Th e modifications h ave not been cleare d or approved bythe FDA. This assay has been validated pursu ant to the CLIA regulations and is used for clinic al purposes. For m ore information on this test, go to:http://educa tion. [employer] /faq/OVJ46v0(Th is link is being provided for informational/e ducat ional purposes only.) RAC (test code = Performing RAC) Organization Information: Site ID: IG [facility] Address: [address] [place] [address] Director: Dr. Rajinder Grant [facility]pat[facility] C [id number] 22:17:00 Test Item Value Reference Interpretation Comments Range Hepatitis C Ab (test REACTIVE NON-REACTIVE A code = 33778-7) Signal/cutoff (test >11.00 <=1.00 H Based o n this code = 28876-7) result, the sample will be testedf or HCV RNA by a Nucleic Acid Amplification T est (NAAT)to determ ine if the patient has a current activeinfection . RAC (test code = Performing RAC) Organization Information: Site ID: RGA [facility] Address: [address] [place] [address] Director: Rajinder Grant Lab Interpretation Abnormal (test code = 16925-9) [facility]ale[facility] type 1/2 combined Ab, [id number] 22:17:00 Test Item Value Reference Interpretation Comments Range HSV 1 IgM NEGATIVE (test code = 50990-4) HSV 2 IgM NEGATIVE REFERENCE RANG E: NEGATIVE HSV (test IgM is detectab le in serum code = from >90% of [place] tracey 97706-0) primary HSV inf ection. However, HSV Ig [...] performancechar acteristics have been deter mined by [facility].It has not been cleared or appr luis by FDA. This assay hasb een validated pursuant to the CLIA regulations and isused for clinical purpos es. RAC (test Performing code = Organization RAC) Information: Site ID: EZ Name: [facility], Address: [address] [place] [address] Director: Crista Camacho MD,PhD,BARI [facility] HospitalHIV 1/2 antigen/antibody, fourth generation, with reflexes 2022-02-11 22:17:00 Test Item Value Reference Range Interpretation Comments HIV NON-REACTIVE NON-REACTIVE HIV-1 antigen a nd antigen/ant HIV-1/HIV-2 ant ibodies ibody 4th were notdetecte d. There gen (test is no laborator y evidence code = of HIVinfection . PLEASE 90524-9) NOTE: This info rmation has been disclo theresa rodriguezzayda from records wh ose confidentiality may beprotected [...] ad ditional information ple ase refer tohttp://educat ion.[employer]/ faq/BIQ575 (This link is b eing provided for informational/e ducational purposes only.) The performance of this assay has not been clinicallyvalid ated in patients less t lagunas 2 years old. RAC (test Performing code = RAC) Organization Information: Site ID: RGA Name: [facility] Address: [address] [place] [address] Director: Rajinder Grant [facility] 1 and 2 specific Ab [id number] 22:17:00 Test Item Value Reference Interpretation Comments [...] ease refer to http://educatio n.Ques tDiagnostics.co m/faq/ REZ272 (This li nk is being provided for informational/e ducati onal purposes o nly.) RAC (test code = Performing RAC) Organization Information: Site ID: IG Name: [facility] Address: [address] [place] [address] Director: Dr. Rajinder Grant Lab Interpretation Abnormal (test code = 01306-9) [facility]ale[facility]atitis B surface [id number] 22:17:00 Test Item Value Reference Range Interpretation Comments Hepatitis B surface NON-REACTIVE NON-REACTIVE Ag (test code = 5196-1) RAC (test code = RAC) Performing Organization Information: Site ID: RGA Name: [facility] Address: [address] [place] [address] Director: Rajinder Grant [facility]aleRP with reflex to [id number] 22:17:00 Test Item Value Reference Range Interpretation Comments RPR (test code = NON-REACTIVE NON-REACTIVE 56238-5) RAC (test code = Performing Organization RAC) Information: Site ID: RGA [facility] Address: [address] [place] [address] Director: Rajinder Grant [facility] C virus (HCV), quantitative [id number] 22:17:00 Test Item Value Reference Interpretation Comments Range HCV RNA, <15 NOT DETECTED NOT DETECTED quantitative PCR IU/mL (test code = 15738-4) HCV viral log <1.18 NOT DETECTED NOT DETECTED This bhupendra t was (test code = Log IU/mL performed using 04971-3) Real-Time Polym erase ChainReaction. Reportable Rang e: 15 IU/mL to 100,00 0,000 IU/mL(1.18 Log IU/mL to 8.00 Log IU/ mL). The analytical performance characteristics of thisassay have been determined by [employer]. Th e modifications h ave not been cleare d or approved bythe FDA. This assay has been validated pursu ant to the CLIA regulations and is used for clinic al purposes. For m ore information on this test, go to:http://educa Infermedicaon. [employer] /faq/FJW38i9( is link is being provided for informational/e ducat ional purposes only.) RAC (test code = Performing RAC) Organization Information: Site ID: IG [facility] Address: [address] [place] [address] Director: Dr. Rajinder Grant [facility] C [id number] 22:17:00 Test Item Value Reference Interpretation Comments Range Hepatitis C Ab (test REACTIVE NON-REACTIVE A code = 21312-9) Signal/cutoff (test >11.00 <=1.00 H Based o n this code = 17324-5) result, the sample will be testedf or HCV RNA by a Nucleic Acid Amplification T est (NAAT)to determ ine if the patient has a current activeinfection . RAC (test code = Performing RAC) Organization Information: Site ID: RGA Name: [facility] Address: [address] [place] [address] Director: Rajinder Grant Lab Interpretation Abnormal (test code = 94953-5) [facility] type 1/2 combined Ab, [id number] 22:17:00 Test Item Value Reference Interpretation Comments Range HSV 1 IgM NEGATIVE (test code = 37279-2) HSV 2 IgM NEGATIVE REFERENCE RANG E: NEGATIVE HSV (test IgM is detectab le in serum code = from >90% of [place] tracey 54803-6) primary HSV inf ection. However, HSV Ig [...] performancechar acteristics have been deter mined by [facility].It has not been cleared or appr luis by FDA. This assay hasb een validated pursuant to the CLIA regulations and isused for clinical purpos es. RAC (test Performing code = Organization RAC) Information: Site ID: EZ Name: [facility], Address: [address] [place] [address] Director: Crista Camacho MD,PhD,BARI [facility]Co[facility] HospitalHIV 1/2 antigen/antibody, fourth generation, with reflexes 2022-02-11 22:17:00 Test Item Value Reference Range Interpretation Comments HIV NON-REACTIVE NON-REACTIVE HIV-1 antigen a nd antigen/ant HIV-1/HIV-2 ant ibodies ibody 4th were notdetecte d. There gen (test is no laborator y evidence code = of HIVinfection . PLEASE 53776-6) NOTE: This info rmation has been disclo [...] ad ditional information ple ase refer tohttp://educat ion.[employer]/ faq/HDP523 (This link is b eing provided for informational/e ducational purposes only.) The performance of this assay has not been clinicallyvalid ated in patients less t lagunas 2 years old. RAC (test Performing code = RAC) Organization Information: Site ID: RGA Name: [facility] Address: [address] [place] [address] Director: Rajinder Grant [facility] 1 and 2 specific Ab [id number] 22:17:00 Test Item Value Reference Interpretation Comments [...] information, pl ease refer to http://educel Garcia tDiagnostics.co m/faq/ AIC295 (This li nk is being provided for informational/e ducati onal purposes o nly.) RAC (test code = Performing RAC) Organization Information: Site ID: IG Name: [facility] Address: [address] [place] [address] Director: Dr. Rajinder Grant Lab Interpretation Abnormal (test code = 42364-8) [facility]ale[facility] B surface [id number] 22:17:00 Test Item Value Reference Range Interpretation Comments Hepatitis B surface NON-REACTIVE NON-REACTIVE Ag (test code = 5196-1) RAC (test code = RAC) Performing Organization Information: Site ID: RGA Name: [facility] Address: [address] [place] [address] Director: Rajinder Grant [facility] with reflex to [id number] 22:17:00 Test Item Value Reference Range Interpretation Comments RPR (test code = NON-REACTIVE NON-REACTIVE 36954-5) RAC (test code = Performing Organization RAC) Information: Site ID: RGA Name[facility] Address: [address] [place] [address] Director: Rajinder Grant [facility] C virus (HCV), quantitative [id number] 22:17:00 Test Item Value Reference Interpretation Comments Range HCV RNA, <15 NOT DETECTED NOT DETECTED quantitative PCR IU/mL (test code = 28942-7) HCV viral log <1.18 NOT DETECTED NOT DETECTED This bhupendra t was (test code = Log IU/mL performed using 91041-6) Real-Time Polym erase ChainReaction. Reportable Rang e: 15 IU/mL to 100,00 0,000 IU/mL(1.18 Log IU/mL to 8.00 Log IU/ mL). The analytical performance characteristics of thisassay have been determined by [employer]. Th e modifications h ave not been cleare d or approved bythe FDA. This assay has been validated pursu ant to the CLIA regulations and is used for clinic al purposes. For m ore information on this test, go to:http://educa tion. [employer] /faq/EAX06z7(Th is link is being provided for informational/e ducat ional purposes only.) RAC (test code = Performing RAC) Organization Information: Site ID: IG [facility] Address: [address] [place] [address] Director: Dr. Rajinder Grant [facility] C [id number] 22:17:00 Test Item Value Reference Interpretation Comments Range Hepatitis C Ab (test REACTIVE NON-REACTIVE A code = 28276-7) Signal/cutoff (test >11.00 <=1.00 H Based o n this code = 16154-5) result, the sample will be testedf or HCV RNA by a Nucleic Acid Amplification T est (NAAT)to determ ine if the patient has a current activeinfection . RAC (test code = Performing RAC) Organization Information: Site ID: RGA Name: [facility] Address: [address] [place] [address] Director: Rajinder Grant Lab Interpretation Abnormal (test code = 04824-5) [facility] type 1/2 combined Ab, [id number] 22:17:00 Test Item Value Reference Interpretation Comments Range HSV 1 IgM NEGATIVE (test code = 03269-4) HSV 2 IgM NEGATIVE REFERENCE RANG E: NEGATIVE HSV (test IgM is detectab le in serum code = from >90% of [facility] 07957-4) primary HSV inf ection. However, HSV Ig [...] performancechar acteristics have been deter mined by [facility].It has not been cleared or appr luis by FDA. This assay hasb een validated pursuant to the CLIA regulations and isused for clinical purpos es. RAC (test Performing code = Organization RAC) Information: Site ID: EZ Name: [facility], Address: [address] [place] [address] Director: Crista Camacho MD,PhD,BARI [facility]aleHIV 1/2 antigen/antibody, fourth generation, with reflexes 2022-02-11 22:17:00 Test Item Value Reference Range Interpretation Comments HIV NON-REACTIVE NON-REACTIVE HIV-1 antigen a nd antigen/ant HIV-1/HIV-2 ant ibodies ibody 4th were notdetecte d. There gen (test is no laborator y evidence code = of HIVinfection . PLEASE 17293-8) NOTE: This info rmation has been disclo [...] ad ditional information ple ase refer tohttp://educat ion.[employer]/ faq/ITX163 (This link is b eing provided for informational/e ducational purposes only.) The performance of this assay has not been clinicallyvalid ated in patients less t lagunas 2 years old. RAC (test Performing code = RAC) Organization Information: Site ID: RGA Name: [facility] Address: [address] [place] [address] Director: Rajinder Grant [facility] 1 and 2 specific Ab [id number] 22:17:00 Test Item Value Reference Interpretation Comments [...] ease refer to http://educatio n.Ques tDiagnostics.co m/faq/ VGN337 (This li nk is being provided for informational/e ducati onal purposes o nly.) RAC (test code = Performing RAC) Organization Information: Site ID: IG Name: [facility] Address: [address] [place] [address] Director: Dr. Rajinder Grant Lab Interpretation Abnormal (test code = 88713-9) [facility] B surface [id number] 22:17:00 Test Item Value Reference Range Interpretation Comments Hepatitis B surface NON-REACTIVE NON-REACTIVE Ag (test code = 5196-1) RAC (test code = RAC) Performing Organization Information: Site ID: RGA Name: [facility] Address: [address] [place] [address] Director: Rajinder Grant [facility]RP with reflex to [id number] 22:17:00 Test Item Value Reference Range Interpretation Comments RPR (test code = NON-REACTIVE NON-REACTIVE 14135-0) RAC (test code = Performing Organization RAC) Information: Site ID: RGA Name: [facility] Address: [address] [place] [address] Director: Rajinder Grant [facility] C virus (HCV), quantitative [id number] 22:17:00 Test Item Value Reference Interpretation Comments Range HCV RNA, <15 NOT DETECTED NOT DETECTED quantitative PCR IU/mL (test code = 90459-3) HCV viral log <1.18 NOT DETECTED NOT DETECTED This bhupendra t was (test code = Log IU/mL performed using 38490-6) Real-Time Polym erase ChainReaction. Reportable Rang e: 15 IU/mL to 100,00 0,000 IU/mL(1.18 Log IU/mL to 8.00 Log IU/ mL). The analytical performance characteristics of thisassay have been determined by [employer]. Th e modifications h ave not been cleare d or approved bythe FDA. This assay has been validated pursu ant to the CLIA regulations and is used for clinic al purposes. For m ore information on this test, go to:http://educa tion. [employer] /faq/YOB73i5(Th is link is being provided for informational/e ducat ional purposes only.) RAC (test code = Performing RAC) Organization Information: Site ID: IG [facility] Address: [address] [place] [address] Director: Dr. Rajinder Grant [facility]aleHepatitis C [id number] 22:17:00 Test Item Value Reference Interpretation Comments Range Hepatitis C Ab (test REACTIVE NON-REACTIVE A code = 66796-3) Signal/cutoff (test >11.00 <=1.00 H Based o n this code = 81163-8) result, the sample will be testedf or HCV RNA by a Nucleic Acid Amplification T est (NAAT)to determ ine if the patient has a current activeinfection . RAC (test code = Performing RAC) Organization Information: Site ID: RGA [facility]: [facility] Address: [address] [place] [address] Director: Rajinder Grant Lab Interpretation Abnormal (test code = 14090-7) [facility], [id number] 22:17:00 Test Item Value Reference Interpretation Comments Range HSV 1 IgM NEGATIVE (test code = 43754-9) HSV 2 IgM NEGATIVE REFERENCE RANG E: NEGATIVE HSV (test IgM is detectab le in serum code = from >90% of [place] tracey 62191-3) primary HSV inf ection. However, HSV Ig [...] performancechar acteristics have been deter mined by [facility].It has not been cleared or appr luis by FDA. This assay hasb een validated pursuant to the CLIA regulations and isused for clinical purpos es. RAC (test Performing code = Organization RAC) Information: Site ID: EZ Name: [facility], Address: [address] [place] [address] Director: Crista Camacho MD,PhD,BARI [facility]aleHIV 1/2 antigen/antibody, fourth generation, with reflexes 2022-02-11 22:17:00 Test Item Value Reference Range Interpretation Comments HIV NON-REACTIVE NON-REACTIVE HIV-1 antigen a nd antigen/ant HIV-1/HIV-2 ant ibodies ibody 4th were notdetecte d. There gen (test is no laborator y evidence code = of HIVinfection . PLEASE 33182-9) NOTE: This info rmation has been disclo [...] ad ditional information ple ase refer tohttp://educat ion.[employer]/ faq/GIH150 (This link is b eing provided for informational/e ducational purposes only.) The performance of this assay has not been clinicallyvalid ated in patients less t lagunas 2 years old. RAC (test Performing code = RAC) Organization Information: Site ID: RGA [facility]: [facility] Address: [address] [place] [address] Director: Rajinder Grant [facility]V 1 and 2 specific Ab [id number] 22:17:00 Test Item Value Reference Interpretation Comments [...] ease refer to http://educatio n.Ques tDiagnostics.co m/faq/ WPT895 (This li nk is being provided for informational/e ducati onal purposes o nly.) RAC (test code = Performing RAC) Organization Information: Site ID: IG Name: [facility] Address: [address] [place] [address] Director: Dr. Rajinder Grant Lab Interpretation Abnormal (test code = 39127-0) [facility] B surface [id number] 22:17:00 Test Item Value Reference Range Interpretation Comments Hepatitis B surface NON-REACTIVE NON-REACTIVE Ag (test code = 5196-1) RAC (test code = RAC) Performing Organization Information: Site ID: RGA Name: [facility] Address: [address] [place] [address] Director: Rajinder Grant [facility] with reflex to [id number] 22:17:00 Test Item Value Reference Range Interpretation Comments RPR (test code = NON-REACTIVE NON-REACTIVE 51871-6) RAC (test code = Performing Organization RAC) Information: Site ID: RGA [facility] Address: [address] [place] [address] Director: Rajinder Grant [facility] C virus (HCV), quantitative [id number] 22:17:00 Test Item Value Reference Interpretation Comments Range HCV RNA, <15 NOT DETECTED NOT DETECTED quantitative PCR IU/mL (test code = 19897-2) HCV viral log <1.18 NOT DETECTED NOT DETECTED This bhupendra t was (test code = Log IU/mL performed using 16090-1) Real-Time Polym erase ChainReaction. Reportable Rang e: 15 IU/mL to 100,00 0,000 IU/mL(1.18 Log IU/mL to 8.00 Log IU/ mL). The analytical performance characteristics of thisassay have been determined by [employer]. Th e modifications h ave not been cleare d or approved bythe FDA. This assay has been validated pursu ant to the CLIA regulations and is used for clinic al purposes. For m ore information on this test, go to:http://DVTela Infermedicaon. [employer] /faq/RKW35s4(Th is link is being provided for informational/e ducat ional purposes only.) RAC (test code = Performing RAC) Organization Information: Site ID: IG [facility] Address: [address] [place] [address] Director: Dr. Rajinder Grant [facility] C [id number] 22:17:00 Test Item Value Reference Interpretation Comments Range Hepatitis C Ab (test REACTIVE NON-REACTIVE A code = 36369-8) Signal/cutoff (test >11.00 <=1.00 H Based o n this code = 18346-3) result, the sample will be testedf or HCV RNA by a Nucleic Acid Amplification T est (NAAT)to determ ine if the patient has a current activeinfection . RAC (test code = Performing RAC) Organization Information: Site ID: RGA [facility]: [facility] Address: [address] [place] [address] Director: Rajinder Grant Lab Interpretation Abnormal (test code = 65523-8) [facility] type 1/2 combined Ab, [id number] 22:17:00 Test Item Value Reference Interpretation Comments Range HSV 1 IgM NEGATIVE (test code = 41548-1) HSV 2 IgM NEGATIVE REFERENCE RANG E: NEGATIVE HSV (test IgM is detectab le in serum code = from >90% [place] 64273-7) primary HSV inf ection. However, HSV Ig [...] performancechar acteristics have been deter mined by [facility].It has not been cleared or appr luis by FDA. This assay hasb een validated pursuant to the CLIA regulations and isused for clinical purpos es. RAC (test Performing code = Organization RAC) Information: Site ID: EZ Name: [facility], Address: [address] [place] [address] Director: Crista Camacho MD,PhD,BARI [facility]Co[facility] HospitalHIV 1/2 antigen/antibody, fourth generation, with reflexes 2022-02-11 22:17:00 Test Item Value Reference Range Interpretation Comments HIV NON-REACTIVE NON-REACTIVE HIV-1 antigen a nd antigen/ant HIV-1/HIV-2 ant ibodies ibody 4th were notdetecte d. There gen (test is no laborator y evidence code = of HIVinfection . PLEASE 03126-5) NOTE: This info rmation has been disclo [...] ad ditional information ple ase refer tohttp://educat ion.[employer]/ faq/IFA747 (This link is b eing provided for informational/e ducational purposes only.) The performance of this assay has not been clinicallyvalid ated in patients less t lagun[place] 2 years old. RAC (test Performing code = RAC) Organization Information: Site ID: RGA [facility] Address: [address] [place] [address] Director: Rajinder Parker [facility] InstituteHS[facility] and 2 specific Ab [id number] 22:17:00 Test Item Value Reference Interpretation Comments [...] ease refer to http://educatio n.Ques tDiagnostics.co m/faq/ YZN352 (This li nk is being provided for informational/e ducati onal purposes o nly.) RAC (test code = Performing RAC) Organization Information: Site ID: IG Name: [employer] Address: [address] [place] [address] Director: Dr. Rajinder Grant Lab Interpretation Abnormal (test code = 32504-0) [facility] [id number] 22:17:00 Test Item Value Reference Range Interpretation Comments Hepatitis B surface NON-REACTIVE NON-REACTIVE Ag (test code = 5196-1) RAC (test code = RAC) Performing Organization Information: Site ID: RGA [facility] Address: [address] [place] [address] Director: Rajinder Grant [facility]aleRPR with reflex to [id number] 22:17:00 Test Item Value Reference Range Interpretation Comments RPR (test code = NON-REACTIVE NON-REACTIVE 44971-5) RAC (test code = Performing Organization RAC) Information: Site ID: RGA [facility] Address: [address] [place] [address] Director: Rajinder Grant [facility]Hep[facility] ([facility]), quantitative [id number] 22:17:00 Test Item Value Reference Interpretation Comments Range HCV RNA, <15 NOT DETECTED NOT DETECTED quantitative PCR IU/mL (test code = 69977-8) HCV viral log <1.18 NOT DETECTED NOT DETECTED This bhupendra t was (test code = Log IU/mL performed using 98643-2) Real-Time Polym erase ChainReaction. Reportable Rang e: 15 IU/mL to 100,00 0,000 IU/mL(1.18 Log IU/mL to 8.00 Log IU/ mL). The analytical performance characteristics of thisassay have been determined by [employer]. Th e modifications h ave not been cleare d or approved bythe FDA. This assay has been validated pursu ant to the CLIA regulations and is used for clinic al purposes. For m ore information on this test, go to:http://DV[employer]ela Infermedicaon. [employer] /faq/PMD56v1(Th is link is being provided for informational/e ducat ional purposes only.) RAC (test code = Performing RAC) Organization Information: Site ID: IG [facility] Address: [address] [place] [address] Director: Dr. Rajinder Grant [facility] [place] [place] [id number] 22:17:00 Test Item Value Reference Interpretation Comments Range Hepatitis C Ab (test REACTIVE NON-REACTIVE A code = 19954-7) Signal/cutoff (test >11.00 See_Comment H Based o n this code = 10432-6) result, the sample will be testedf or [...] RAC) Organization Information: Site ID: RGA [facility]: [facility] Address: [address] [place] [address] Director: Rajinder Grant Lab Interpretation Abnormal (test code = 61007-5) [facility] type 1/2 combined Ab, [id number] 22:17:00 Test Item Value Reference Interpretation Comments Range HSV 1 IgM NEGATIVE (test code = 21495-2) HSV 2 IgM NEGATIVE REFERENCE RANG E: NEGATIVE HSV (test IgM is detectab le in serum code = from >90% of [place] tracey 72423-9) primary HSV inf ection. However, HSV Ig [...] performancechar acteristics have been deter mined by [facility].It has not been cleared or appr luis by FDA. This assay hasb een validated pursuant to the CLIA regulations and isused for clinical purpos es. RAC (test Performing code = Organization RAC) Information: Site ID: EZ Name: [facility], Address: [address] [place] [address] Director: Crista Camacho MD,PhD,BARI [facility] HospitalHIV 1/2 antigen/antibody, fourth generation, with reflexes 2022-02-11 22:17:00 Test Item Value Reference Range Interpretation Comments HIV NON-REACTIVE NON-REACTIVE HIV-1 antigen a nd antigen/ant HIV-1/HIV-2 ant ibodies ibody 4th were notdetecte d. There gen (test is no laborator y evidence code = of HIVinfection . PLEASE 37925-5) NOTE: This info rmation has been disclo [...] ad ditional information ple ase refer tohttp://educat ion.[employer]/ faq/YIN047 (This link is b eing provided for informational/e ducational purposes only.) The performance of this assay has not been clinicallyvalid ated in patients less t lagunas 2 years old. RAC (test Performing code = RAC) Organization Information: Site ID: RGA [facility] Address: [address] [place] [address] Director: Rajinder Grant [facility]aleHSV 1 and 2 specific Ab [id number] 22:17:00 Test Item Value Reference Interpretation Comments [...] additional information, pl ease refer to http://educatio n.Swagsy.[employer] /faq/FA Q118 (This link is being provided for informational/e ducatio nal purposes on ly.) RAC (test code = Performing RAC) Organization Information: Site ID: IG Name: [facility] Address: [address] [place] [address] Director: Dr. Rajinder Grant Lab Interpretation Abnormal (test code = 78361-0) [facility] [facility] [id number] 15:02:28 Test Item Value Reference Range Interpretation Comments Case number (test code = [id number]) Surgical pathology See link below for report (test code = PDF Lab Report 2255) Result status (test code This is Final Report = [id number]) for [address] pathology [id number] 15:02:28 Test Item Value Reference Range Interpretation Comments Case number (test code = [id number]) Surgical pathology See link below for report (test code = PDF Lab Report 2255) Result status (test code This is Final Report = [id number]) for [address] pathology [id number] 15:02:28 Test Item Value Reference Range Interpretation Comments Case number (test code = [id number]) Surgical pathology See link below for report (test code = PDF Lab Report 2255) Result status (test code This is Final Report = [id number]) for [address] pathology [id number] 15:02:28 Test Item Value Reference Range Interpretation Comments Case number (test code = [id number]) Surgical pathology See link below for report (test code = PDF Lab Report 2255) Result status (test code This is Final Report = [id number]) for [address] pathology [id number] 15:02:28 Test Item Value Reference Range Interpretation Comments Case number (test code = [id number]) Surgical pathology See link below for report (test code = PDF Lab Report 2255) Result status (test code This is Final Report = [id number]) for [address] pathology [id number] 15:02:28 Test Item Value Reference Range Interpretation Comments Case number (test code = [id number]) Surgical pathology See link below for report (test code = PDF Lab Report 2255) Result status (test code This is Final Report = [id number]) for [address] pathology [id number] 15:02:28 Test Item Value Reference Range Interpretation Comments Case number (test code = [id number]) Surgical pathology See link below for report (test code = PDF Lab Report 2255) Result status (test code This is Final Report = [id number]) for [address] pathology [id number] 15:02:28 Test Item Value Reference Range Interpretation Comments Case number (test code = [id number]) Surgical pathology See link below for report (test code = PDF Lab Report 2255) Result status (test code This is Final Report = [id number]) for [address] pathology [id number] 15:02:28 Test Item Value Reference Range Interpretation Comments Case number (test code = [id number]) Surgical pathology See link below for report (test code = PDF Lab Report 2255) Result status (test code This is Final Report = 5442742) for [address] pathology [id number] 15:02:28 Test Item Value Reference Range Interpretation Comments Case number (test code = [id number]) Surgical pathology See link below for report (test code = PDF Lab Report 2255) Result status (test code This is Final Report = [id number]) for [address] pathology [id number] 15:02:28 Test Item Value Reference Range Interpretation Comments Case number (test code = [id number]) Surgical pathology See link below for report (test code = PDF Lab Report 2255) Result status (test code This is Final Report = 9329511) for [address] pathology [id number] 15:02:28 Test Item Value Reference Range Interpretation Comments Case number (test code = [id number]) Surgical pathology See link below for report (test code = PDF Lab Report 2255) Result status (test code This is Final Report = 1384015) [address] [facility] [address] qualitative [id number] 22:09:28 Test Item Value Reference Interpretation Comments Range Interpretation (test Negative results do not code = 2111050) preclude COVID-19 infection and should not be used asthe sole basis for treatment or other patient management decisions. Negativeresults must be combined with clinical observations, patient history, andepidemiological information. COVID-19 qualitative Not-Detected Not-Detected RT-PCR result (test code = 98146-9) COVID-19 qualitative See link below for PDF Case Number: RT-PCR (test code = Lab Report [id number]) [facility] [id number] 22:09:28 Test Item Value Reference Interpretation Comments Range Interpretation (test Negative results do not code = 5772166) preclude COVID-19 infection and should not be used asthe sole basis for treatment or other patient management decisions. Negativeresults must be combined with clinical observations, patient history, andepidemiological information. COVID-19 qualitative Not-Detected Not-Detected RT-PCR result (test code = 49852-3) COVID-19 qualitative See link below for PDF Case Number: RT-PCR (test code = Lab Report [id number] [id number]) [facility] [id number] 22:09:28 Test Item Value Reference Interpretation Comments Range Interpretation (test Negative results do not code = 1120096) preclude COVID-19 infection and should not be used asthe sole basis for treatment or other patient management decisions. Negativeresults must be combined with clinical observations, patient history, andepidemiological information. COVID-19 qualitative Not-Detected Not-Detected RT-PCR result (test code = 19178-4) COVID-19 qualitative See link below for PDF Case Number: RT-PCR (test code = Lab Report [id number] [id number]) [facility] [id number] 22:09:28 Test Item Value Reference Interpretation Comments Range Interpretation (test Negative results do not code = 3690273) preclude COVID-19 infection and should not be used asthe sole basis for treatment or other patient management decisions. Negativeresults must be combined with clinical observations, patient history, andepidemiological information. COVID-19 qualitative Not-Detected Not-Detected RT-PCR result (test code = 60089-9) COVID-19 qualitative See link below for PDF Case Number: RT-PCR (test code = Lab Report [id number] [id number]) [facility] [id number] 22:09:28 Test Item Value Reference Interpretation Comments Range Interpretation (test Negative results do not code = 7565818) preclude COVID-19 infection and should not be used asthe sole basis for treatment or other patient management decisions. Negativeresults must be combined with clinical observations, patient history, andepidemiological information. COVID-19 qualitative Not-Detected Not-Detected RT-PCR result (test code = 54624-5) COVID-19 qualitative See link below for PDF Case Number: RT-PCR (test code = Lab Report [id number] [id number]) [facility] [id number] 22:09:28 Test Item Value Reference Interpretation Comments Range Interpretation (test Negative results do not code = 5209995) preclude COVID-19 infection and should not be used asthe sole basis for treatment or other patient management decisions. Negativeresults must be combined with clinical observations, patient history, andepidemiological information. COVID-19 qualitative Not-Detected Not-Detected RT-PCR result (test code = 91412-6) COVID-19 qualitative See link below for PDF Case Number: RT-PCR (test code = Lab Report [id number] 7070) [facility] [id number] 22:09:28 Test Item Value Reference Interpretation Comments Range Interpretation (test Negative results do not code = 2666410) preclude COVID-19 infection and should not be used asthe sole basis for treatment or other patient management decisions. Negativeresults must be combined with clinical observations, patient history, andepidemiological information. COVID-19 qualitative Not-Detected Not-Detected RT-PCR result (test code = 14284-8) COVID-19 qualitative See link below for PDF Case Number: RT-PCR (test code = Lab Report [id number] 7070) [facility] [id number] 22:09:28 Test Item Value Reference Interpretation Comments Range Interpretation (test Negative results do not code = 9044837) preclude COVID-19 infection and should not be used asthe sole basis for treatment or other patient management decisions. Negativeresults must be combined with clinical observations, patient history, andepidemiological information. COVID-19 qualitative Not-Detected Not-Detected RT-PCR result (test code = 16157-0) COVID-19 qualitative See link below for PDF Case Number: RT-PCR PDF (test Lab Report [id number] 1 code = 7070) [facility] [id number] 22:09:28 Test Item Value Reference Interpretation Comments Range Interpretation (test Negative results do not code = 8624201) preclude COVID-19 infection and should not be used asthe sole basis for treatment or other patient management decisions. Negativeresults must be combined with clinical observations, patient history, andepidemiological information. COVID-19 qualitative Not-Detected Not-Detected RT-PCR result (test code = 82670-5) COVID-19 qualitative See link below for PDF Case Number: RT-PCR PDF (test Lab Report [id number] 1 code = 7070) [facility] [id number] 22:09:28 Test Item Value Reference Interpretation Comments Range Interpretation (test Negative results do not code = 7502141) preclude COVID-19 infection and should not be used asthe sole basis for treatment or other patient management decisions. Negativeresults must be combined with clinical observations, patient history, andepidemiological information. COVID-19 qualitative Not-Detected Not-Detected RT-PCR result (test code = 33543-1) COVID-19 qualitative See link below for PDF Case Number: RT-PCR PDF (test Lab Report [id number] 1 code = 7070) [facility] [id number] 22:09:28 Test Item Value Reference Interpretation Comments Range Interpretation (test Negative results do not code = 2542049) preclude COVID-19 infection and should not be used asthe sole basis for treatment or other patient management decisions. Negativeresults must be combined with clinical observations, patient history, andepidemiological information. COVID-19 qualitative Not-Detected Not-Detected RT-PCR result (test code = 47912-9) COVID-19 qualitative See link below for PDF Case Number: RT-PCR PDF (test Lab Report [id number] 1 code = 7070) [facility] [id number] 22:09:28 Test Item Value Reference Interpretation Comments Range Interpretation (test Negative results do not code = 6567025) preclude COVID-19 infection and should not be used asthe sole basis for treatment or other patient management decisions. Negativeresults must be combined with clinical observations, patient history, andepidemiological information. COVID-19 qualitative Not-Detected Not-Detected RT-PCR result (test code = 13707-0) COVID-19 qualitative See link below for PDF Case Number: RT-PCR PDF (test Lab Report [id number] 1 code = 7070) [facility] [Presence] in Respiratory specimen by LATESHA with probe [id number] 17:09:28 Test Item Value Reference Range Interpretation Comments SARS-CoV-2 (COVID-19) RNA Not detected [Presence] in Respiratory specimen by LATESHA with probe detection (test code = 10216-5) Whether patient is employed in a Unknown healthcare setting (test code = 04452-2) Whether the patient has symptoms Unknown related to condition of interest (test code = 18972-7) Whether the patient was Unknown hospitalized for condition of interest (test code = 25415-4) Whether the patient was admitted Unknown to intensive care unit (ICU) for condition of interest (test code = 61177-4) Whether patient resides in a Unknown congregate care setting (test code = 62155-9) status (test code = Unknown 77379-1) Date and time of symptom onset Unknown (test code = 81194-6) [facility]OTHIN[facility] TIS AND HPV mRNA [id number] 20:30:00 Test Item Value Reference Interpretation Comments Range Clinical information None gi niurka (test code = 39846-6) Date of last NONE GIVEN menstrual period (test code = 8665-2) Prev. pap: (test code NONE G IVEN = 41964-0) Prev. bx: (test code NONE GI NIURKA = 62271-0) Source (test code = [place] 22125-5) Statement of adequacy Satisf actory for (test code = 49073-9) evalua tion.Endocervi cony/transformat ion zone componentpresen t.Age and/or menstrua l status not prov ided Interpretation/result Negati ve for : (test code = intraepitheli al 43520-2) lesion or malignancy. Comment (test code = This Pa p test has ) been evaluated with Car Throttle[employer] d technology. Food Operations Manager SYL DUTTON ( CP)CT (test code = 25984-6) screen ing location: [facility] [address] [place] [address], [place] [address] 2 Comment (test code = VIRGILIO CASTELLANO NOTE: 5193965) The Pap is a screening test for [...] Detected Not Detected Methodo logy: code = 10759-2) Transcriptio n-Mediat ed Amplificatio n This assay [...] For additional information, pl ease refer tohttp://educat ion.[employer] .[employer]/ faq/VEY491g3(Th is link if provide d for information/edu catio nal purposes on ly.) RAC (test code = RAC) Performing Organization Information: Site ID: IG Name: [facility] Address: [address] [place] [address] Director: Dr. Rajinder Grant Site ID: RGA Name: [facility] Address: [address] [place] [address] Director: Rajinder Grant [facility]INPRE[facility] TIS AND HPV mRNA [id number] 20:30:00 Test Item Value Reference Interpretation Comments Range Clinical information None gi niurka (test code = 17947-1) Date of last NONE GIVEN menstrual period (test code = 8665-2) Prev. pap: (test code NONE G IVEN = 44139-7) Prev. bx: (test code NONE GI NIURKA = 86379-2) Source (test code = [place] 52411-1) Statement of adequacy Satisf actory for (test code = 39029-6) evalua tion.Endocervi cony/transformat ion zone componentpresen t.Age and/or menstrua l status not prov ided Interpretation/result Negati ve for : (test code = intraepitheli al 43552-7) lesion or malignancy. Comment (test code = This Pa p test has ) been evaluated with [employer] Thro[employer]le[employer] technology. Food Operations Manager [place], [place] ( CP)CT (test code = 91971-1) screen ing location: [place] [address] [address], [facility] [address] 2 Comment (test code = EXPLANA TORY NOTE: 5463042) The Pap is a screening test for [...] Detected Not Detected Methodo logy: code = 93183-1) Transcriptio n-Mediat ed Amplificatio n This assay [...] For additional information, pl ease refer tohttp://educat ion.[employer]/ faq/YHG745l6(Th is link if provide d for information/edu catio nal purposes on ly.) JACEK (test code = RAC) Performing Organization Information: Site ID: IG Name: [facility] Address: [address] [place] [address] Director: Dr. Rajinder Grant Site ID: RGA Name: [facility] Address: [address] [place] [address] Director: Rajinder Parker [facility] InstituteTHINPREP TIS AND HPV mRNA [id number] 20:30:00 Test Item Value Reference Interpretation Comments Range Clinical information None gi niurka (test code = 12328-7) Date of last NONE GIVEN menstrual period (test code = 8665-2) Prev. pap: (test code NONE G IVEN = 71129-9) Prev. bx: (test code NONE GI NIURKA = 86925-0) Source (test code = [place] [address]-3) Statement of adequacy Satisf actory for (test code = 82569-3) evalua tion.Endocervi cony/transformat ion zone componentpresen t.Age and/or menstrua l status not prov ided Interpretation/result Negati ve for : (test code = intraepitheli al 30594-7) lesion or malignancy. Comment (test code = This Pa p test has ) been evaluated with [employer]ro[employer] technology. Food Operations Manager SYL DUTTON ( CP)CT (test code = 71083-0) screen ing location: [address], [place] [address] 2 Comment (test code = EXPLANA TORY NOTE: 1715568) The Pap is a screening test for [...] Detected Not Detected Methodo logy: code = 77779-7) Transcriptio n-Mediat ed Amplificatio n This assay [...] For additional information, pl ease refer tohttp://educat ion.[employer]/ faq/PFT182p7(Th is link if provide d for information/edu catio nal purposes on ly.) JACEK (test code = RAC) Performing Organization Information: Site ID: IG Name: [facility] Address: [address] [place] [address] Director: Dr. Rajinder Grant Site ID: RGA Name: [facility] Address: [address] [place] [address] Director: Rajinder Grant [facility]INPRE[facility] TIS AND HPV mRNA [id number] 20:30:00 Test Item Value Reference Interpretation Comments Range Clinical information None gi niurka (test code = 72503-4) Date of last NONE GIVEN menstrual period (test code = 8665-2) Prev. pap: (test code NONE G IVEN = 98003-6) Prev. bx: (test code NONE GI NIURKA = 68577-1) Source (test code = [place] 82500-4) Statement of adequacy Satisf actory for (test code = 22215-8) evalua tion.Endocervi cony/transformat ion zone componentpresen t.Age and/or menstrua l status not prov ided Interpretation/result Negati ve for : (test code = intraepitheli al 70430-8) lesion or malignancy. Comment (test code = This Pa p test has ) been evaluated with computerassiste d technology. Food Operations Manager DJL, [place] ( CP)CT (test code = 05905-7) screen ing location: [facility] [address] [place] [address], [place] [address] 2 Comment (test code = EXPLANA TORY NOTE: 7455167) The Pap is a screening test for [...] Detected Not Detected Methodo logy: code = 63734-0) Transcriptio n-Mediat ed Amplificatio n This assay [...] For additional information, pl ease refer tohttp://educat ion.[employer]/ faq/NYO396c0(Th is link if provide d for information/edu catio nal purposes on ly.) JACEK (test code = RAC) Performing Organization Information: Site ID: IG Name: [facility] Address: [address] [place] [address] Director: Dr. Rajinder Grant Site ID: RGA Name: [facility] Address: [address] [place] [address] Director: Rajinder Grant [facility]IN[facility] TIS AND HPV mRNA [id number] 20:30:00 Test Item Value Reference Interpretation Comments Range Clinical information None gi niurka (test code = 84362-6) Date of last NONE GIVEN menstrual period (test code = 8665-2) Prev. pap: (test code NONE G IVEN = 01459-5) Prev. bx: (test code NONE GI NIURKA = 52254-5) Source (test code = [place] 13286-1) Statement of adequacy Satisf actory for (test code = 91977-6) evalua tion.Endocervi cony/transformat ion zone componentpresen t.Age and/or menstrua l status not prov ided Interpretation/result Negati ve for : (test code = intraepitheli al 14929-8) lesion or malignancy. Comment (test code = This Pa p test has ) been evaluated with computerassiste d technology. Food Operations Manager DJL, CT ( CP)CT (test code = 77415-6) screen ing location: [address], [place] [address] 2 Comment (test code = EXPLANA NONA NOTE: 7797416) The Pap is a screening test for [...] Detected Not Detected Methodo logy: code = 98578-9) Transcriptio n-Mediat ed Amplificatio n This assay [...] For additional information, pl ease refer tohttp://educat ion.[employer]/ faq/VSK844o2(Th is link if provide d for information/edu catio nal purposes on ly.) RAC (test code = RAC) Performing Organization Information: Site ID: IG Name: [facility] Address: [address] [place] [address] Director: Dr. Rajinder Grant Site ID: RGA Name: [facility] Address: [address] [place] [address] Director: Rajinder Grant [facility]INPRE[facility] TIS AND HPV mRNA [id number] 20:30:00 Test Item Value Reference Interpretation Comments Range Clinical information None gi niurka (test code = 65729-6) Date of last NONE GIVEN menstrual period (test code = 8665-2) Prev. pap: (test code NONE G IVEN = 58253-6) Prev. bx: (test code NONE GI NIURKA = 92691-3) Source (test code = [place] 675[address]-1) Statement of adequacy Satisf actory for (test code = 77604-9) evalua tion.Endocervi cony/transformat ion zone componentpresen t.Age and/or menstrua l status not prov ided Interpretation/result Negati ve for : (test code = intraepitheli al 49161-6) lesion or malignancy. Comment (test code = This Pa p test has ) been evaluated with computerassiste d technology. Food Operations Manager DJL, CT ( CP)CT (test code = 93442-3) screen ing location: [place] [address] [address], [facility] [address] 2 Comment (test code = EXPLANA TORY NOTE: 3070373) The Pap is a screening test for [...] Detected Not Detected Methodo logy: code = 51534-9) Transcriptio n-Mediat ed Amplificatio n This assay [...] For additional information, pl ease refer tohttp://educat ion.[employer] .[employer]/ faq/AIT561f5(Th is link if provide d for information/edu catio nal purposes on ly.) JACEK (test code = RAC) Performing Organization Information: Site ID: IG Name: [facility] Address: [address] [place] [address] Director: Dr. Rajinder Grant Site ID: RGA Name: [facility] Address: [address] [place] [address] Director: Rajinder Grant [facility]INPRE[facility] TIS AND HPV mRNA [id number] 20:30:00 Test Item Value Reference Interpretation Comments Range Clinical information None gi niurka (test code = 67835-3) Date of last NONE GIVEN menstrual period (test code = 8665-2) Prev. pap: (test code NONE G IVEN = 54740-2) Prev. bx: (test code NONE GI NIURKA = 92112-7) Source (test code = [place] [address]-0) Statement of adequacy Satisf actory for (test code = 59230-1) evalua tion.Endocervi cony/transformat ion zone componentpresen t.Age and/or menstrua l status not prov ided Interpretation/result Negati ve for : (test code = intraepitheli al 30295-0) lesion or malignancy. Comment (test code = This Pa p test has ) been evaluated with Alignment Healthcareassiste d technology. Food Operations Manager NATO, [place] ( CP)CT (test code = 31433-6) screen ing location: [facility] [address] [place] [address], [place] [address] 2 Comment (test code = EXPLANA TORY NOTE: 7910364) The Pap is a screening test for [...] Detected Not Detected Methodo logy: code = 04585-3) Transcriptio n-Mediat ed Amplificatio n This assay [...] For additional information, pl ease refer tohttp://educat ion.[employer]/ faq/VBH938w0(Th is link if provide d for information/edu catio nal purposes on ly.) RAC (test code = RAC) Performing Organization Information: Site ID: IG Name: [facility] Address: [address] [place] [address] Director: Dr. Rajinder Grant Site ID: RGA Name: [facility] Address: [address] [place] [address] Director: Rajinder Grant [facility]INPREP TIS AND HPV mRNA [id number] 20:30:00 Test Item Value Reference Interpretation Comments Range Clinical information None gi niurka (test code = 49393-2) Date of last NONE GIVEN menstrual period (test code = 8665-2) Prev. pap: (test code NONE G IVEN = 33438-8) Prev. bx: (test code NONE GI NIURKA = 08436-9) Source (test code = [place] 666[address]-5) Statement of adequacy Satisf actory for (test code = 62927-9) evalua tion.Endocervi cony/transformat ion zone componentpresen t.Age and/or menstrua l status not prov ided Interpretation/result Negati ve for : (test code = intraepitheli al 21817-9) lesion or malignancy. Comment (test code = This Pa p test has ) been evaluated with computerassiste d technology. Food Operations Manager NATO, [place] ( CP)CT (test code = 56969-9) screen ing location: [facility] [address] [facility] [facility], [place] [address] 2 Comment (test code = EXPLANA TORY NOTE: 4775790) The Pap is a screening test for [...] Detected Not Detected Methodo logy: code = 64090-8) Transcriptio n-Mediat ed Amplificatio n This assay [...] For additional information, pl ease refer tohttp://educat ion.A.P Avanashiappa Silk/ faq/QRO486e6(Th is link if provide d for information/edu catio nal purposes on ly.) JACEK (test code = RAC) Performing Organization Information: Site ID: IG Name: [facility] Address: [address] [place] [address] Director: Dr. Rajinder Grant Site ID: RGA [facility] Address: [address] [place] [address] Director: Rajinder Grant [facility]IN[facility] TIS AND HPV mRNA [id number]/[id number] 20:30:00 Test Item Value Reference Interpretation Comments Range Clinical information None gi niurka (test code = 09422-6) Date of last NONE GIVEN menstrual period (test code = 8665-2) Prev. pap: (test code NONE G IVEN = 95497-5) Prev. bx: (test code NONE GI NIURKA = 30417-8) Source (test code = None giv [place] 76771-4) Statement of adequacy Satisf actory for (test code = 55756-1) evalua tion.Endocervi cony/transformat ion zone componentpresen t.Age and/or menstrua l status not prov ided Interpretation/result Negati ve for : (test code = intraepitheli al 91276-5) lesion or malignancy. Comment (test code = This Pa p test has ) been evaluated with computerassiste d technology. Food Operations Manager NATO CT ( CP)CT (test code = 34585-9) screen ing location: [facility] [address] [place] [address], [place] [address] 2 Comment (test code = MARYURIA NONA NOTE: 0664857) The Pap is a screening test for [...] Detected Not Detected Methodo logy: code = 64335-0) Transcriptio n-Mediat ed Amplificatio n This assay [...] For additional information, pl ease refer tohttp://educat ion.[facility] .[employer]ocketmiles/ faq/QIH506u7(Th is link if provide d for information/edu catio nal purposes on ly.) RAC (test code = RAC) Performing Organization Information: Site ID: IG Name: [facility] Address: [address] [place] [address] Director: Dr. Rajinder Grant Site ID: RGA Name: [facility] Address: [address] [place] [address] Director: Rajinder Grant [facility]INPREP TIS AND HPV mRNA E6/[id number] 20:30:00 Test Item Value Reference Interpretation Comments Range Clinical information None gi niurka (test code = 24094-9) Date of last NONE GIVEN menstrual period (test code = 8665-2) Prev. pap: (test code NONE G IVEN = 79795-2) Prev. bx: (test code NONE GI NIURKA = 30004-4) Source (test code = [place] [address]-6) Statement of adequacy Satisf actory for (test code = 35389-9) evalua tion.Endocervi cony/transformat ion zone componentpresen t.Age and/or menstrua l status not prov ided Interpretation/result Negati ve for : (test code = intraepitheli al 80236-1) lesion or malignancy. Comment (test code = This Pa p test has ) been evaluated with computerassiste d technology. Food Operations Manager NATO, CT ( CP)CT (test code = 48480-0) screen ing location: [place] [address] [address], [facility] [address] 2 Comment (test code = EXPLANA TORY NOTE: 7243844) The Pap is a screening test for [...] Detected Not Detected Methodo logy: code = 77998-9) Transcriptio n-Mediat ed Amplificatio n This assay [...] For additional information, pl ease refer tohttp://educat ion.[facility] .Rocketmiles/ faq/LEW538v5(Th is link if provide d for information/edu catio nal purposes on ly.) JACEK (test code = RAC) Performing Organization Information: Site ID: IG Name: [facility] Address: [address] [place] [address] Director: Dr. Rajinder Grant Site ID: KATERINA Name: [facility] Address: [address] [place] [address] Director: Rajinder Grant [facility]INPREP TIS AND HPV mRNA E6/[id number] 20:30:00 Test Item Value Reference Interpretation Comments Range Clinical information None gi niurka (test code = 77306-7) Date of last NONE GIVEN menstrual period (test code = 8665-2) Prev. pap: (test code NONE G IVEN = 28020-8) Prev. bx: (test code NONE GI NIURKA = 82710-5) Source (test code = None giv en ) Statement of adequacy Satisf actory for (test code = 22664-5) evalua tion.Endocervi cony/transformat ion zone componentpresen t.Age and/or menstrua l status not prov ided Interpretation/result Negati ve for : (test code = intraepitheli al 09117-4) lesion or malignancy. Comment (test code = This Pa p test has ) been evaluated with Alignment Healthcareassiste d technology. Food Operations Manager NATO CT ( CP)CT (test code = 59473-9) screen ing location: [address], [place] [address] 2 Comment (test code = EXPLANA TORY NOTE: 2115835) The Pap is a screening test for [...] Detected Not Detected Methodo logy: code = 94425-1) Transcriptio n-Mediat ed Amplificatio n This assay [...] For additional information, pl ease refer tohttp://educat ion.[facility] .[employer]ocketmiles/ faq/NAX425o0(Th is link if provide d for information/edu catio nal purposes on ly.) RAC (test code = RAC) Performing Organization Information: Site ID: IG Name: [facility] Address: [address] [place] [address] Director: Dr. Rajinder Grant Site ID: RGA Name: [facility] Address: [address] [place] [address] Director: Rajinder Grant [facility]THINPREP TIS AND HPV mRNA E6/[id number] 20:30:00 Test Item Value Reference Interpretation Comments Range Clinical information None gi niurka (test code = 39921-4) Date of last NONE GIVEN menstrual period (test code = 8665-2) Prev. pap: (test code NONE G IVEN = 38937-4) Prev. bx: (test code NONE GI NIURKA = 98799-3) Source (test code = None giv en 91832-6) Statement of adequacy Satisf actory for (test code = 39500-6) evalua tion.Endocervi cony/transformat ion zone componentpresen t.Age and/or menstrua l status not prov ided Interpretation/result Negati ve for : (test code = intraepitheli al 20029-1) lesion or malignancy. Comment (test code = This Pa p test has ) been evaluated with computerassiste d technology. Food Operations Manager DJL, CT ( CP)CT (test code = 05783-3) screen ing location: [facility] [address] [place] [address], [place] [address] 2 Comment (test code = EXPLANA TORY NOTE: 9365710) The Pap is a screening test for [...] Detected Not Detected Methodo logy: code = 00358-7) Transcriptio n-Mediat ed Amplificatio n This assay [...] For additional information, pl ease refer tohttp://educat ion.[facility] .[employer]ocketm[employer]/ faq/XNB606h1(Th is link if provide d for information/edu catio nal purposes on ly.) RAC (test code = RAC) Performing Organization Information: Site ID: IG Name: [facility] Address: [address] [place] [address] Director: Dr. Rajinder Grant Site ID: RGA Name: [facility] Address: [address] [place] [address] Director: Rajinder Grant [address]2022-09-01 18:14:37 Test Item Value Reference Range Interpretation Comments Ventricular rate (test code = 253) Atrial rate (test code = 255) OH interval (test code = 266) QRSD interval [...] of 07-NOV-2021 12:57,-No significant change was found- [address]2022-09-01 18:14:37 Test Item Value Reference Range Interpretation Comments Ventricular rate (test code = 253) Atrial rate (test code = 255) OH interval (test code = 266) QRSD interval [...] of 07-NOV-2021 12:57,-No significant change was found- [facility] 12 [id number] 18:14:37 Test Item Value Reference Range Interpretation Comments Ventricular rate (test code = 253) Atrial rate (test code = 255) OH interval (test code = 266) QRSD interval [...] of 07-NOV-2021 12:57,-No significant change was found- [facility] RNA [Presence] in Respiratory specimen by LATESHA with probe [id number] 21:57:49 Test Item Value Reference Range Interpretation Comments SARS-CoV-2 (COVID-19) RNA [Presence] Detected in Respiratory specimen by LATESHA with probe detection (test code = 70008-0) Whether patient is employed in a Unknown healthcare setting (test code = 83736-4) Whether the patient has symptoms Unknown related to condition of interest (test code = 77910-5) Whether the patient was hospitalized Unknown for condition of interest (test code = 98504-5) Whether the patient was admitted to Unknown intensive care unit (ICU) for condition of interest (test code = 33964-0) Whether patient resides in a Unknown congregate care setting (test code = 45683-8) status (test code = Unknown 66055-2) Date and time of symptom onset (test Unknown code = 79693-8) [facility] PLANOHepatic function [id number] 18:40:00 Test Item Value Reference Range Interpretation [...] RAC) Organization Information: Site ID: RGA [facility] Address: [address] [place] [address] Director: Rajinder Grant [facility]aleHepatic function [id number] 18:40:00 Test Item Value Reference Range Interpretation [...] RAC) Organization Information: Site ID: RGA [facility] Address: [address] [place] [address] Director: Rajinder Grant [facility]aleHepatic function [id number] 18:40:00 Test Item Value Reference Range Interpretation [...] 1920-8) ALT (test code = 14 U/L 29 1742-6) WILDA (test code = FASTING: UNKNOWN WILDA) RAC (test code = Performing RAC) Organization Information: Site ID: RGA [facility]: [facility] Address: [address] [place] [address] Director: Rajinder Grant [facility]aleHepatic function [id number] 18:40:00 Test Item Value Reference Range Interpretation [...] RAC) Organization Information: Site ID: RGA [facility]: [facility] Address: [address] [place] [address] Director: [place] Girma MedinaRudyRegency Hospital CompanyHepatic function [id number] 18:40:00 Test Item Value Reference Range Interpretation [...] RAC) Organization Information: Site ID: RGA [facility] Address: [address] [place] [address] Director: Rajinder Grant [facility]aleHepatic function [id number] 18:40:00 Test Item Value Reference Range Interpretation [...] RAC) Organization Information: Site ID: RGA [facility] Address: [address] [place] [address] Director: Rajinder Grant [facility]aleHepatic function [id number] 18:40:00 Test Item Value Reference Range Interpretation [...] RAC) Organization Information: Site ID: RGA Name: [facility] Lab Address: [address] [place] [address] Director: Rajinder LamarSt. Rita's HospitalHepatic function [id number] 18:40:00 Test Item Value Reference Range Interpretation Comments Protein (test code 6.6 g/dL 6.1-8.1 = 2885-2) Albumin, S (test 4.1 g/dL 3.6-5.1 code = 1751-7) Globulin, total 2.5 See_Comment [Automated (test code [...] RAC) Organization Information: Site ID: RGA Name: [facility] Address: [address] [place] [address] Director: Rajinder LamarSt. Rita's HospitalHepatic function [id number] 18:40:00 Test Item Value Reference Range Interpretation [...] RAC) Organization Information: Site ID: RGA [facility]: [facility] Address: [address] [place] [address] Director: Rajinder Grant [facility]aleHepatic function [id number] 18:40:00 Test Item Value Reference Range Interpretation [...] RAC) Organization Information: Site ID: RGA [facility]: [facility] Address: [address] [place] [address] Director: Rajinder MedinaRegency Hospital CompanyHepatic function [id number] 18:40:00 Test Item Value Reference Range Interpretation Comments Protein (test code 6.6 g/dL 6.1-8.1 = 2885-2) Albumin, S (test 4.1 g/dL 3.6-5.1 code = 1751-7) Globulin, total 2.5 See_Comment [Automated (test code [...] 1919-8) ALT (test code = 14 U/L 6-29 1741-6) WILDA (test code = FASTING: UNKNOWN WILDA) RAC (test code = Performing RAC) Organization Information: Site ID: RGA [facility]: [facility] Address: [address] [place] [address] Director: Rajinder MartínezARS-CoV-2 (COVID-19) RNA [Presence] in Respiratory specimen by LATESHA with probe [id number] 20:46:09 Test Item Value Reference Range Interpretation Comments SARS-CoV-2 (COVID-19) RNA Not detected [Presence] in Respiratory specimen by LATESHA with probe detection (test code = 84870-2) Whether patient is employed in a Unknown healthcare setting (test code = 69378-7) Whether the patient has symptoms Unknown related to condition of interest (test code = 43766-2) Whether the patient was Unknown hospitalized for condition of interest (test code = 05767-9) Whether the patient was admitted Unknown to intensive care unit (ICU) for condition of interest (test code = 74747-2) Whether patient resides in a Unknown congregate care setting (test code = 37283-1) status (test code = Unknown 58488-2) Date and time of symptom onset Unknown (test code = 26328-8) [facility] [place] [id number] 05:23:00 Test Item Value Reference Range Interpretation Comments TSH (test code mIU/L Reference Ra nge = 3016-3) > or = 20 Years 0.40-4.50 Range s First trimester 0.26-2.66 Secon d trimester 0.55-2.73 Third trimester 0.43-2.91 RAC (test code Performing = RAC) Organization Information: Site ID: RGA [facility]: [facility] Address: [address] [place] [address] Director: Rajinder Girma [facility]An[facility]2022-06-11 05:23:00 Test Item Value Reference Range Interpretation Comments TSH (test code mIU/L Reference Ra nge > = 3016-3) or = 20 Years 0.40-4.50 Range s First trimester 0.26-2.66 Secon d trimester 0.55-2.73 Third trimester 0.43-2.91 RAC (test code Performing = RAC) Organization Information: Site ID: RGA [facility]: [facility] Address: [address] [place] [address] Director: Rajinder [facility]Mer[facility] [id number] 05:23:00 Test Item Value Reference Range Interpretation Comments TSH (test code mIU/L Reference Ra nge > = 3016-3) or = 20 Years 0.40-4.50 Range s First trimester 0.26-2.66 Secon d trimester 0.55-2.73 Third trimester 0.43-2.91 RAC (test code Performing = RAC) Organization Information: Site ID: RGA [facility]: [facility] Address: [address] [place] [address] Director: Rajinder KiddShannon Medical Center Southroid [facility] [id number] 05:23:00 Test Item Value Reference Range Interpretation Comments TSH (test code mIU/L Reference Ra nge > = 3016-3) or = 20 Years 0.40-4.50 Range s First trimester 0.26-2.66 Secon d trimester 0.55-2.73 Third trimester 0.43-2.91 RAC (test code Performing = RAC) Organization Information: Site ID: RGA Name: [facility] Address: [address] [place] [address] Director: Rajinder Grant [facility] [id number] 05:23:00 Test Item Value Reference Range Interpretation Comments TSH (test code mIU/L Reference Ra nge > = 3016-3) or = 20 Years 0.40-4.50 Range s First trimester 0.26-2.66 Secon d trimester 0.55-2.73 Third trimester 0.43-2.91 RAC (test code Performing = RAC) Organization Information: Site ID: A Name: [facility] Address: [address] [place], [place] [address] Director: Rajinder [facility]iddB[facility] [id number] 05:23:00 Test Item Value Reference Range Interpretation Comments TSH (test code mIU/L Reference Ra nge > = 3016-3) or = 20 Years 0.40-4.50 Range s First trimester 0.26-2.66 Secon d trimester 0.55-2.73 Third trimester 0.43-2.91 RAC (test code Performing = RAC) Organization Information: Site ID: RGA Name: [facility] Address: [address] [place] [address] Director: Rajinder KiddShannon [facility] Center Southroid stimulating [id number] 05:23:00 Test Item Value Reference Range Interpretation Comments TSH (test code 1.97 mIU/L Reference Ra nge > = 3016-3) or = 20 Years 0.40-4.50 Range s First trimester 0.26-2.66 Secon d trimester 0.55-2.73 Third trimester 0.43-2.91 RAC (test code Performing = RAC) Organization Information: Site ID: A Name: [facility] Address: [address] [place] [address] Director: Rajinder L [facility] HospitalThyroid stimulating [id number] 05:23:00 Test Item Value Reference Range Interpretation Comments TSH (test code 1.97 mIU/L Reference Ra nge > = 3016-3) or = 20 Years 0.40-4.50 Range s First trimester 0.26-2.66 Secon d trimester 0.55-2.73 Third trimester 0.43-2.91 RAC (test code Performing = RAC) Organization Information: Site ID: RGA Name: [facility] Address: [address] [place] [address] Director: Rajinder Grant [facility] Hospitalroid stimulating [id number] 05:23:00 Test Item Value Reference Range Interpretation Comments TSH (test code 1.97 mIU/L Reference Ra nge > = 3016-3) or = 20 Years 0.40-4.50 Range s First trimester 0.26-2.66 Secon d trimester 0.55-2.73 Third trimester 0.43-2.91 RAC (test code Performing = RAC) Organization Information: Site ID: RGA Name: [facility] Address: [address] [place] [address] Director: Rajinder Grant [facility] stimulating [id number] 05:23:00 Test Item Value Reference Range Interpretation Comments TSH (test code 1.97 mIU/L Reference Ra nge > = 3016-3) or = 20 Years 0.40-4.50 Range s First trimester 0.26-2.66 Secon d trimester 0.55-2.73 Third trimester 0.43-2.91 RAC (test code Performing = RAC) Organization Information: Site ID: RGA Name: [facility] Address: [address] [place], [place] [address] Director: Rajinder Grant Religious [facility] InstituteUA RFLX MICR CULT IF [id number] 18:48:00 Test Item Value Reference Range Interpretation [...] LACT) 0.7 mmol/L 0.7-2.0 N LIVER FUNCTION [id number] 15:14:00 Test Item Value Reference Range Interpretation [...] U/L 38-126 N (test code = ALKP) [id number] 15:14:00 Test Item Value Reference Range Interpretation [...] ~~~~~~~~~~~~ ~~~~~~~~~~~~~~~ ~~~~~~~~~~~~ ~~~~~~~~~~~~~~~ ~ BASIC METABOLIC [id number] 15:14:00 Test Item Value Reference Range Interpretation [...] = HEMINDEX) - CT ABD PELVIS W/O [id number] 14:53:00 [facility] 1970 Sex: F FAX: Debo Gutierrez [place]: St: REG Name: HERSON JACKSON : 1970 Age/S: 51/F [address] Unit: [id number] Loc: [place] [address] Phys: Debo Gutierrez Acct: [id number] Dis Date: Status: REG ER PHONE #: [phone] Exam Date: 08/08/2021 1435 FAX #: [phone] Reason: flank pain EXAMS: CPT CODE: [id number] CT ABD PELVIS W/O CONT 91591 EXAM: CT abdomen and pelvis without contrast [...] 1 Signed Report (CONTINUED) FAX: Debo Gutierrez [place]: St: REG Name: HERSON JACKSON : 1970 Age/S: 51/F [address] Unit: [id number] Loc: [place] [address] Phys: Debo Gutierrez Acct: [id number] Dis Date: Status: REG ER PHONE #: [phone] Exam Date: 08/08/2021 1435 FAX #: [phone] Reason: flank pain EXAMS: CPT CODE: [id number] CT ABD PELVIS W/O CONT 02703 (Continued) nephrolithiasis . Evaluation of the bladder is limited, but no obvious bladder abnormality is present. Organs of Reproduction: Not well assessed due to the lack of IV contrast, though no gross abnormalities are identified. Although, there is evidence of mild fatty stranding surrounding the adnexa anduterus suggest presence of pelvic inflammatory disease. Gastrointestinal: [...] 2 Signed Report (CONTINUED) FAX: Debo Gutierrez [place]: St: REG Name: HERSON JACKSON : 1970 Age/S: 51/F [address] Unit: [id number] Loc: [place] [address] Phys: Debo Gutierrez Acct: [id number] Dis Date: Status: REG ER PHONE #: [phone] Exam Date: FAX #: [phone] Reason: flank pain EXAMS: CPT CODE: [id number] CT ABD PELVIS W/O CONT 55347(Continued) CC: Debo Gutierrez Technologist: Debo Ortiz; SCOTT SORIANO; DIANE BENAVIDES Trnscrd Dt/Tm: 08/08/2021 (1453) t.VIANCAR.HPD Orig Print D/T: S: 08/08/2021 (0766 PAGE 3 Signed ReportCBC W/AUTO [id number] 14:21:00 Test Item Value Reference Range Interpretation [...] 3/uL 0.0-0.1 N - XR CHEST 1 [id number] 13:50:00 [facility] 1970 Sex: F FAX: Debo Gutierrez [place]: LIN[address] St: PRE Name: HERSON JACKSON : 1970 Age/S: 51/F [address] Unit #: [id number] Loc: [place] [address] Phys: Debo Gutierrez Acct: [id number] Dis Date: Status: PRE ER PHONE #: [phone] Exam Date: 08/08/2021 1340 FAX #: [phone] Reason: CODE SEPSIS EXAMS: CPT CODE: [id number] XR CHEST 1 V 45666 CHEST 1 VIEW: INDICATION: CODE SEPSIS COMPARISON:There are no prior studies for comparison. Location: [...] Gutierrez Technologist: NAY GILLIS; STUDENT 2ND YEAR Trnksrd Date/Time/By: 08/08/2021 (1350) : By: [email or web address] PAGE 1 Signed Report FAX: Debo Gutierrez [place]: St: PRE -- Name: HERSON JACKSON : 1970 Age/S: 51/F [address] Unit #: [id number] Loc: [place] [address] Phys: Debo Gutierrez Acct: [id number] Dis Date: Status: PRE ER PHONE #: [phone] Exam Date: 08/08/2021 1340 FAX #: [phone] Reason: CODE SEPSIS EXAMS: CPT CODE: [id number] XR CHEST 1 V 79697 (Continued) Orig Print D/T: S: 08/08/2021 (3824) PAGE 2 Signed ReportTHINPREP TIS PAP AND HPV mRNA E6/E7 REFLEX HPV 16,18/45 2021-06-19 18:43:00 Test Item Value Reference Interpretation Comments Range Clinical information None gi niurka (test code = 67805-5) Date of last NONE GIVEN menstrual period (test code = 8665-2) Prev. pap: (test code NONE G IVEN = 92140-8) Prev. bx: (test code NONE GI NIURKA = 91734-6) Source (test code = None giv en ) Statement of adequacy Satisf actory for (test code = 28591-1) evalua tion.Endocervi cony/transformat ion zone componentpresen t.Age and/or menstrua l status not prov ided Interpretation/result Negati ve for : (test code = intraepitheli al 81554-5) lesion or malignancy. Comment (test code = This Pa p test has ) been evaluated with computeryoublisher.comiste d technology. Review PMT, CT(ASCP)CT art glass designer screening l ocation: (test code = 35919-4) [facility] [address], [facility] [address] 2 Comment (test code = EXPLANA TORY NOTE: 4816373) The Pap is a screening test for [...] Detected Not Detected Methodo logy: code = 07293-9) Transcriptio n-Mediat ed Amplificatio n This assay dete cts E6/E7 viral messenger RNA ( mRNA) from 14high-ris k HPV types (16,18,31,33,35 ,39,4 5,51,52,56,58,5 9,66, 68). The analyt ical performance characteristics of thisassay have been determined by [employer].The modifications h ave not been cleare d or approvedby the FDA. This assay has been validated pursu antto the CLIA regula tions and is used forclinical purposes. For additional information, pl ease refer tohttp://educat ion.[facility] .[employer]/ faq/MTN033m1(Th is link if provide d for information/edu catio nal purposes on ly.) RAC (test code = RAC) Performing Organization Information: Site ID: IG Name: [facility] Address: [address] [place] [address] Director: Dr. Rajinder Grant Site ID: RGA Name: [facility] Address: [address] [place] [address] Director: Rajinder Grant [facility] [place] PAP [facility] HPV mRNA E6/E7 REFLEX HPV 16,18/45 2021-06-19 18:43:00 Test Item Value Reference Interpretation Comments Range Clinical information None gi niurka (test code = 82074-1) Date of last NONE GIVEN menstrual period (test code = 8665-2) Prev. pap: (test code NONE G IVEN = 37686-4) Prev. bx: (test code NONE GI NIURKA = 95325-1) Source (test code = [place] 27425-9) Statement of adequacy Satisf actory for (test code = 96235-7) evalua tion.Endocervi cony/transformat ion zone componentpresen t.Age and/or menstrua l status not prov ided Interpretation/result Negati ve for : (test code = intraepitheli al 52984-0) lesion or malignancy. Comment (test code = This Pa p test has ) been evaluated with computerassiste d technology. Review PMT, CT(ASCP)CT art glass designer screening l ocation: (test code = 12793-9) [facility] [place] [address] 2 Comment (test code = EXPLANA TORY NOTE: 4700724) The Pap is a screening test for [...] Detected Not Detected Methodo logy: code = 96526-0) Transcriptio n-Mediat ed Amplificatio n This assay dete cts E6/E7 viral messenger RNA ( mRNA) from 14high-ris k HPV types (16,18,31,33,35 ,39,4 5,51,52,56,58,5 9,66, 68). The analyt ical performance characteristics of thisassay have been determined by [employer].The modifications h ave not been cleare d or approvedby the FDA. This assay has been validated pursu antto the CLIA regula tions and is used forclinical purposes. For additional information, pl ease refer tohttp://educat ion.A.P Avanashiappa Silk/ faq/MAS534f9(Th is link if provide d for information/edu catio nal purposes on ly.) JACEK (test code = RAC) Performing Organization Information: Site ID: IG Name: [facility] Address: [address] [place] [address] Director: Dr. Rajinder Grant Site ID: RGA Name: [facility] Address: [address] [place] [address] Director: Rajinder Grant [facility] HPV mRNA E6/E7 REFLEX HPV 16,18/45 2021-06-19 18:43:00 Test Item Value Reference Interpretation Comments Range Clinical information None gi niurka (test code = 18970-3) Date of last NONE GIVEN menstrual period (test code = 8665-2) Prev. pap: (test code NONE G IVEN = 48670-6) Prev. bx: (test code NONE GI NIURKA = 23007-3) Source (test code = None giv en ) Statement of adequacy Satisf actory for (test code = 89898-3) evalua tion.Endocervi cony/transformat ion zone componentpresen t.Age and/or menstrua l status not prov ided Interpretation/result Negati ve for : (test code = intraepitheli al 80025-5) lesion or malignancy. Comment (test code = This Pa p test has ) been evaluated with computerassiste d technology. Review PMT, CT(ASCP)CT art glass designer screening l ocation: (test code = 71478-6) [facility] [place] [address] [place] [address], [place] [address] 2 Comment (test code = EXPLANA NONA NOTE: 3190672) The Pap is a screening test for [...] Detected Not Detected Methodo logy: code = 02002-4) Transcriptio n-Mediat ed Amplificatio n This assay dete cts E6/E7 viral messenger RNA ( mRNA) from 14high-ris k HPV types (16,18,31,33,35 ,39,4 5,51,52,56,58,5 9,66, 68). The analyt ical performance characteristics of thisassay have been determined by [employer].The modifications h ave not been cleare d or approvedby the FDA. This assay has been validated pursu antto the CLIA regula tions and is used forclinical purposes. For additional information, pl ease refer tohttp://educat ion.[employer] .[employer]/ faq/HDW980h5(Th is link if provide d for information/edu catio nal purposes on ly.) RAC (test code = RAC) Performing Organization Information: Site ID: IG Name: [facility] Address: [address] [place] [address] Director: Dr. Rajinder Grant Site ID: RGA Name: [facility] Address: [address] [place] [address] Director: Rajinder Grant [facility] mRNA E6/E7 REFLEX HPV 16,18/45 2021-06-19 18:43:00 Test Item Value Reference Interpretation Comments Range Clinical information None gi niurka (test code = 26394-4) Date of last NONE GIVEN menstrual period (test code = 8665-2) Prev. pap: (test code NONE G IVEN = 95719-7) Prev. bx: (test code NONE GI NIURKA = 04751-8) Source (test code = [place] [address]-0) Statement of adequacy Satisf actory for (test code = 89381-0) evalua tion.Endocervi cony/transformat ion zone componentpresen t.Age and/or menstrua l status not prov ided Interpretation/result Negati ve for : (test code = intraepitheli al 60702-1) lesion or malignancy. Comment (test code = This Pa p test has ) been evaluated with computerassiste d technology. Review PMT, CT(ASCP)CT art glass designer screening l ocation: (test code = 33587-6) [facility] [address], [facility] [address] Comment (test code = EXPLANA TORY NOTE: 8828420) The Pap is a screening test for [...] Detected Not Detected Methodo logy: code = 73690-3) Transcriptio n-Mediat ed Amplificatio n This assay dete cts E6/E7 viral messenger RNA ( mRNA) from 14high-ris k HPV types (16,18,31,33,35 ,39,4 5,51,52,56,58,5 9,66, 68). The analyt ical performance characteristics of thisassay have been determined by [employer].The modifications h ave not been cleare d or approvedby the FDA. This assay has been validated pursu antto the CLIA regula tions and is used forclinical purposes. For additional information, pl ease refer tohttp://educat ion.q [employer]/ faq/QWZ560b3(Th is link if provide d for information/edu catio nal purposes on ly.) RAC (test code = RAC) Performing Organization Information: Site ID: IG Name: [facility] Address: [address] [place] [address] Director: Dr. Rajinder Grant Site ID: RGA Name: [facility] Address: [address] [place] [address] Director: Rajinder Grant [facility] PAP AND HPV mRNA E6/E7 REFLEX HPV 16,18/45 2021-06-19 18:43:00 Test Item Value Reference Interpretation Comments Range Clinical information None gi niurka (test code = 07312-6) Date of last NONE GIVEN menstrual period (test code = 8665-2) Prev. pap: (test code NONE G IVEN = 41310-2) Prev. bx: (test code NONE GI NIURKA = 82243-0) Source (test code = [place] 09095-6) Statement of adequacy Satisf actory for (test code = 92610-7) evalua tion.Endocervi cony/transformat ion zone componentpresen t.Age and/or menstrua l status not prov ided Interpretation/result Negati ve for : (test code = intraepitheli al 36690-6) lesion or malignancy. Comment (test code = This Pa p test has ) been evaluated with computerassiste d technology. Review PMT, CT(ASCP)CT art glass designer screening l ocation: (test code = 35851-7) [facility] [address], [facility] [address] Comment (test code = EXPLANA TORY NOTE: 1193715) The Pap is a screening test for [...] Detected Not Detected Methodo logy: code = 36932-3) Transcriptio n-Mediat ed Amplificatio n This assay dete cts E6/E7 viral messenger RNA ( mRNA) from 14high-ris k HPV types (16,18,31,33,35 ,39,4 5,51,52,56,58,5 9,66, 68). The analyt ical performance characteristics of thisassay have been determined by [employer].The modifications h ave not been cleare d or approvedby the FDA. This assay has been validated pursu antto the CLIA regula tions and is used forclinical purposes. For additional information, pl ease refer tohttp://educat ion.[employer] .[employer]/ faq/MAZ653q4(Th is link if provide d for information/edu catio nal purposes on ly.) JACEK (test code = RAC) Performing Organization Information: Site ID: IG Name: [facility] Address: [address] [place] [address] Director: Dr. Rajinder Grant Site ID: RGA Name: [facility] Address: [address] [place] [address] Director: Rajinder Grant [facility] TIS PAP AND HPV mRNA E6/E7 REFLEX HPV 16,18/45 2021-06-19 18:43:00 Test Item Value Reference Interpretation Comments Range Clinical information None gi niurka (test code = 27308-2) Date of last NONE GIVEN menstrual period (test code = 8665-2) Prev. pap: (test code NONE G IVEN = 42528-7) Prev. bx: (test code NONE GI NIURKA = 29649-1) Source (test code = [place] 384[address]-7) Statement of adequacy Satisf actory for (test code = 57807-2) evalua tion.Endocervi cony/transformat ion zone componentpresen t.Age and/or menstrua l status not prov ided Interpretation/result Negati ve for : (test code = intraepitheli al 51812-1) lesion or malignancy. Comment (test code = This Pa p test has ) been evaluated with computerassiste d technology. Review PMT, CT(ASCP)CT art glass designer screening l ocation: (test code = 79173-7) [facility] [address], [place] [address] 2 Comment (test code = VIRGILIO CASTELLANO NOTE: 7250120) The Pap is a screening test for [...] Detected Not Detected Methodo logy: code = 92335-7) Transcriptio n-Mediat ed Amplificatio n This assay dete cts E6/E7 viral messenger RNA ( mRNA) from 14high-ris k HPV types (16,18,31,33,35 ,39,4 5,51,52,56,58,5 9,66, 68). The analyt ical performance characteristics of thisassay have been determined by [employer].The modifications h ave not been cleare d or approvedby the FDA. This assay has been validated pursu antto the CLIA regula tions and is used forclinical purposes. For additional information, pl ease refer tohttp://educat ion.[employer] .com/ faq/NBX947a3(Th is link if provide d for information/edu catio nal purposes on ly.) RAC (test code = RAC) Performing Organization Information: Site ID: IG Name: [facility] Address: [address] [place] [address] Director: Dr. Rajinder Grant Site ID: RGA Name: [facility] Address: [address] [place] [address] Director: Rajinder Grant [facility] TIS PAP AND HPV mRNA E6/E7 REFLEX HPV 16,18/45 2021-06-19 18:43:00 Test Item Value Reference Interpretation Comments Range Clinical information None gi niurka (test code = 11578-8) Date of last NONE GIVEN menstrual period (test code = 8665-2) Prev. pap: (test code NONE G IVEN = 71567-4) Prev. bx: (test code NONE GI NIURKA = 14592-5) Source (test code = None [place] 24786-2) Statement of adequacy Satisf actory for (test code = 01731-8) evalua tion.Endocervi cony/transformat ion zone componentpresen t.Age and/or menstrua l status not prov ided Interpretation/result Negati ve for : (test code = intraepitheli al 47533-9) lesion or malignancy. Comment (test code = This Pa p test has ) been evaluated with [employer] d technology. Review PMT, CT(ASCP)CT art glass designer screening l ocation: (test code = 59490-8) [facility] [address], [facility] [address] Comment (test code = EXPLANA TORY NOTE: 3961105) The Pap is a screening test for [...] Detected Not Detected Methodo logy: code = 49117-2) Transcriptio n-Mediat ed Amplificatio n This assay dete cts E6/E7 viral messenger RNA ( mRNA) from 14high-ris k HPV types (16,18,31,33,35 ,39,4 5,51,52,56,58,5 9,66, 68). The analyt ical performance characteristics of thisassay have been determined by [employer].The modifications h ave not been cleare d or approvedby the FDA. This assay has been validated pursu antto the CLIA regula tions and is used forclinical purposes. For additional information, pl ease refer tohttp://educat ion.[employer] .[employer]/ faq/BVC620b3(Th is link if provide d for information/edu catio nal purposes on ly.) JACEK (test code = JACEK) Performing Organization Information: Site ID: IG Name: [facility] Address: [address] [place] [address] Director: Dr. Rajinder Grant Site ID: RGA Name: [facility] Address: [address] [place] [address] Director: Rajinder Grant [facility], COMPLETE, WITH REFLEX TO [id number] 09:37:00 Test Item Value Reference Interpretation Comments Range Color, UA (test code YELLOW YELLOW = 5778-6) Appearance (test CLEAR CLEAR code = 5767-9) Specific gravity, 1.001-1.035 urine (test code = 5811-5) pH, urine (test code 5.0-8.0 = 5803-2) Glucose, urine (test NEGATIVE NEGATIVE code = 19737-2) Bilirubin, UA (test NEGATIVE NEGATIVE code = 5770-3) Ketones, UA (test NEGATIVE NEGATIVE code = 2514-8) Occult blood, urine NEGATIVE NEGATIVE (test code = 5794-3) Protein, UA (test NEGATIVE NEGATIVE code = 94809-3) Nitrite, UA (test NEGATIVE NEGATIVE code = [...] code = NONE SEEN See_Comment [Autom ated 01753-1) message] The sy stem which generated this result transmitted reference range : < OR = 2 /HPF. Th e reference range was not used to interpret this result as normal/abnormal . Squamous epithelial NONE SEEN See_Comment [Automa aydin cells, UA (test code message ] The system = 57281-0) which generated this result transmitted reference range [...] URINE, code = 630-4) ROUTINE Micro Number: [id number] Test Status: Fi nal Specimen Source [...] I f this patient is , johana florian refer [...] RAC) Organization Information: Site ID: RGRd Name: [facility] Address: [address] [place] [address] Director: Rajinder Grant Lab Interpretation Abnormal (test code = 11995-7) [facility] TO [id number] 09:37:00 Test Item Value Reference Interpretation Comments Range Color, UA (test code YELLOW YELLOW = 5778-6) Appearance (test CLEAR CLEAR code = 5767-9) Specific gravity, 1.001-1.035 urine (test code = 5811-5) pH, urine (test code 5.0-8.0 = 5803-2) Glucose, urine (test NEGATIVE NEGATIVE code = 14491-4) Bilirubin, UA (test NEGATIVE NEGATIVE code = 5770-3) Ketones, UA (test NEGATIVE NEGATIVE code = 2514-8) Occult blood, urine NEGATIVE NEGATIVE (test code = 5794-3) Protein, UA (test NEGATIVE NEGATIVE code = 31929-3) Nitrite, UA (test NEGATIVE NEGATIVE code = [...] code = NONE SEEN See_Comment [Autom ated 48014-3) message] The sy stem which generated this result transmitted reference range : < OR = 2 /HPF. Th e reference range was not used to interpret this result as normal/abnormal . Squamous epithelial NONE SEEN See_Comment [Automa aydin cells, UA (test code message ] The system = 63694-5) which generated this result transmitted reference range [...] URINE, code = 630-4) ROUTINE Micro Number: [id number] Test Status: Fi nal Specimen Source [...] RAC) Organization Information: Site ID: BEBA [facility] Address: [address] [place] [address] Director: Rajinder Grant Lab Interpretation Abnormal (test code = 66404-3) [facility] WITH REFLEX TO [id number] 09:37:00 Test Item Value Reference Interpretation Comments Range Color, UA (test code YELLOW YELLOW = 5778-6) Appearance (test CLEAR CLEAR code = 5767-9) Specific gravity, 1.001-1.035 urine (test code = 5811-5) pH, urine (test code 5.0-8.0 = 5803-2) Glucose, urine (test NEGATIVE NEGATIVE code = 43823-5) Bilirubin, UA (test NEGATIVE NEGATIVE code = 5770-3) Ketones, UA (test NEGATIVE NEGATIVE code = 2514-8) Occult blood, urine NEGATIVE NEGATIVE (test code = 5794-3) Protein, UA (test NEGATIVE NEGATIVE code = 92322-6) Nitrite, UA (test NEGATIVE NEGATIVE code = [...] code = NONE SEEN See_Comment [Autom ated 52627-7) message] The sy stem which generated this result transmitted reference range : < OR = 2 /HPF. Th e reference range was not used to interpret this result as normal/abnormal . Squamous epithelial NONE SEEN See_Comment [Automa aydin cells, UA (test code message ] The system = 84305-5) which generated this result transmitted reference range [...] URINE, code = 630-4) ROUTINE Micro Number: [id number] Test Status: Fi nal Specimen Source [...] RAC) Organization Information: Site ID: RGA Name: [facility] Address: [address] [place] [address] Director: Rajinder Grant Lab Interpretation Abnormal (test code = 61107-6) [facility] WITH REFLEX TO [id number] 09:37:00 Test Item Value Reference Interpretation Comments Range Color, UA (test code YELLOW YELLOW = 5778-6) Appearance (test CLEAR CLEAR code = 5767-9) Specific gravity, 1.001-1.035 urine (test code = 5811-5) pH, urine (test code 5.0-8.0 = 5803-2) Glucose, urine (test NEGATIVE NEGATIVE code = 72483-8) Bilirubin, UA (test NEGATIVE NEGATIVE code = 5770-3) Ketones, UA (test NEGATIVE NEGATIVE code = 2514-8) Occult blood, urine NEGATIVE NEGATIVE (test code = 5794-3) Protein, UA (test NEGATIVE NEGATIVE code = 77796-0) Nitrite, UA (test NEGATIVE NEGATIVE code = [...] code = NONE SEEN See_Comment [Autom ated 53875-2) message] The sy stem which generated this result transmitted reference range : < OR = 2 /HPF. Th e reference range was not used to interpret this result as normal/abnormal . Squamous epithelial NONE SEEN See_Comment [Automa aydin cells, UA (test code message ] The system = 35349-2) which generated this result transmitted reference range [...] URINE, code = 630-4) ROUTINE Micro Number: [id number] Test Status: Fi nal Specimen Source [...] RAC) Organization Information: Site ID: BEBA [facility] Address: [address] [place] [address] Director: Rajinder Grant Lab Interpretation Abnormal (test code = 82721-7) [facility] WITH REFLEX TO [id number] 09:37:00 Test Item Value Reference Interpretation Comments Range Color, UA (test code YELLOW YELLOW = 5778-6) Appearance (test CLEAR CLEAR code = 5767-9) Specific gravity, 1.001-1.035 urine (test code = 5811-5) pH, urine (test code 5.0-8.0 = 5803-2) Glucose, urine (test NEGATIVE NEGATIVE code = 10744-0) Bilirubin, UA (test NEGATIVE NEGATIVE code = 5770-3) Ketones, UA (test NEGATIVE NEGATIVE code = 2514-8) Occult blood, urine NEGATIVE NEGATIVE (test code = 5794-3) Protein, UA (test NEGATIVE NEGATIVE code = 15689-0) Nitrite, UA (test NEGATIVE NEGATIVE code = [...] code = NONE SEEN See_Comment [Autom ated 98214-1) message] The sy stem which generated this result transmitted reference range : < OR = 2 /HPF. Th e reference range was not used to interpret this result as normal/abnormal . Squamous epithelial NONE SEEN See_Comment [Automa aydin cells, UA (test code message ] The system = 73610-6) which generated this result transmitted reference range [...] URINE, code = 630-4) ROUTINE Micro Number: [id number] Test Status: F inal Specimen Source : Urine Specimen Quality: Adequa [...] = Performing RAC) Organization Information: Site ID: [facility] Name: [facility] Address: [address] [place] [address] Director: Rajinder Grant Lab Interpretation Abnormal (test code = 03759-3) [facility] WITH REFLEX TO [id number] 09:37:00 Test Item Value Reference Interpretation Comments Range Color, UA (test code YELLOW YELLOW = 5778-6) Appearance (test CLEAR CLEAR code = 5767-9) Specific gravity, 1.001-1.035 urine (test code = 5811-5) pH, urine (test code 5.0-8.0 = 5803-2) Glucose, urine (test NEGATIVE NEGATIVE code = 07591-1) Bilirubin, UA (test NEGATIVE NEGATIVE code = 5770-3) Ketones, UA (test NEGATIVE NEGATIVE code = 2514-8) Occult blood, urine NEGATIVE NEGATIVE (test code = 5794-3) Protein, UA (test NEGATIVE NEGATIVE code = 77400-5) Nitrite, UA (test NEGATIVE NEGATIVE code = [...] code = NONE SEEN See_Comment [Autom ated 55622-2) message] The sy stem which generated this result transmitted reference range : < OR = 2 /HPF. Th e reference range was not used to interpret this result as normal/abnormal . Squamous epithelial NONE SEEN See_Comment [Automa aydin cells, UA (test code message ] The system = 95086-5) which generated this result transmitted reference range [...] URINE, code = 630-4) ROUTINE Micro Number: [id number] 0 Test Status: Fi nal Specimen Source [...] RAC) Organization Information: Site ID: BEBA Name: [facility] Address: [address] [place] [address] Director: Rajinder Grant Lab Interpretation Abnormal (test code = 85462-9) [facility] WITH REFLEX TO [id number] 09:37:00 Test Item Value Reference Interpretation Comments Range Color, UA (test code YELLOW YELLOW = 5778-6) Appearance (test CLEAR CLEAR code = 5767-9) Specific gravity, 1.009 1.001-1.035 urine (test code = 5811-5) pH, urine (test code 7.0 5.0-8.0 = 5803-2) Glucose, urine (test NEGATIVE NEGATIVE code = 96297-1) Bilirubin, UA (test NEGATIVE NEGATIVE code = 5770-3) Ketones, UA (test NEGATIVE NEGATIVE code = 2514-8) Occult blood, urine NEGATIVE NEGATIVE (test code = 5794-3) Protein, UA (test NEGATIVE NEGATIVE code = 71431-0) Nitrite, UA (test NEGATIVE NEGATIVE code = [...] code = NONE SEEN See_Comment [Autom ated 34810-0) message] The sy stem which generated this result transmitted reference range : < OR = 2 /HPF. Th e reference range was not used to interpret this result as normal/abnormal . Squamous epithelial NONE SEEN See_Comment [Automa aydin cells, UA (test code message ] The system = 31073-6) which generated this result transmitted reference range [...] URINE, code = 630-4) ROUTINE Micro Number: [id number] Test Status: Fi nal Specimen Source [...] RAC) Organization Information: Site ID: RGA [facility] Address: [address] [place] [address] Director: Rajinder Grant Lab Interpretation Abnormal (test code = 20991-4) [facility] urinalysis [id number] 18:20:00 Test Item Value Reference Range Interpretation Comments Color urine, POC (test Straw code = 2893100) Clarity urine, POC (test Clear code = 9452979) Glucose urine, POC (test Negative Negative code = 1386283) Bilirubin urine, POC Negative Negative (test code = 6658611) Ketones urine, POC (test Negative Negative code = 0580701) Specific gravity urine, 1.005-1.030 POC (test code = 7637617) Blood urine, POC (test Trace Negative A code = 9264327) pH urine, POC (test code See_Comment [A utomated message] = 0599091) The system [employer] generated this result transmitted ref erence range: 5.0, 5.5 , 6.0, 6.5, 7.0, 7.5, 8.0, 8.5. The refere nce range was not u sed to interpret this result as normal/abnor mal. Protein urine, POC (test Negative Negative code = 7871919) Urobilinogen urine, POC <2.0 See_Comment [Au tomated message] (test code = 3116950) The sy stem which generated this result transmitted ref erence range: <=2.0. T he reference range was not used to int erpret this result as normal/abnormal . Nitrite urine, POC (test Negative Negative code = 0684226) Leukocyte esterase Negative Negative urine, POC (test code = 7841361) Lab Interpretation (test Abnormal code = 95867-0) [facility] urinalysis [id number] 18:20:00 Test Item Value Reference Range Interpretation Comments Color urine, POC (test Straw code = 2665909) Clarity urine, POC (test Clear code = 7969192) Glucose urine, POC (test Negative Negative code = 6881232) Bilirubin urine, POC Negative Negative (test code = 9215744) Ketones urine, POC (test Negative Negative code = 6603463) Specific gravity urine, 1.005-1.030 POC (test code = 3095562) Blood urine, POC (test Trace Negative A code = 7714524) pH urine, POC (test code See_Comment [A utomated message] = 9414923) The system [employer] generated this result transmitted ref erence range: 5.0, 5.5 , 6.0, 6.5, 7.0, 7.5, 8.0, 8.5. The refere nce range was not u sed to interpret this result as normal/abnor mal. Protein urine, POC (test Negative Negative code = 1684360) Urobilinogen urine, POC <2.0 See_Comment [Au tomated message] (test code = 3679596) The sy stem which generated this result transmitted ref erence range: <=2.0. T he reference range was not used to int erpret this result as normal/abnormal . Nitrite urine, POC (test Negative Negative code = 9873037) Leukocyte esterase Negative Negative urine, POC (test code = 0200560) Lab Interpretation (test Abnormal code = 47357-1) [facility] urinalysis [id number] 18:20:00 Test Item Value Reference Range Interpretation Comments Color urine, POC (test Straw code = 2394501) Clarity urine, POC (test Clear code = 3425111) Glucose urine, POC (test Negative Negative code = 3448858) Bilirubin urine, POC Negative Negative (test code = 3882210) Ketones urine, POC (test Negative Negative code = 1331267) Specific gravity urine, 1.005-1.030 POC (test code = 6000548) Blood urine, POC (test Trace Negative A code = 0638933) pH urine, POC (test code See_Comment [A utomated message] = 4394265) The system [employer] generated this result transmitted ref erence range: 5.0, 5.5 , 6.0, 6.5, 7.0, 7.5, 8.0, 8.5. The refere nce range was not u sed to interpret this result as normal/abnor mal. Protein urine, POC (test Negative Negative code = 1674344) Urobilinogen urine, POC <2.0 See_Comment [Au tomated message] (test code = 9172157) The sy stem which generated this result transmitted ref erence range: <=2.0. T he reference range was not used to int erpret this result as normal/abnormal . Nitrite urine, POC (test Negative Negative code = 9820125) Leukocyte esterase Negative Negative urine, POC (test code = 2447462) Lab Interpretation (test Abnormal code = 63864-2) [facility] urinalysis [id number] 18:20:00 Test Item Value Reference Range Interpretation Comments Color urine, POC (test Straw code = 1278280) Clarity urine, POC (test Clear code = 4098761) Glucose urine, POC (test Negative Negative code = 8358518) Bilirubin urine, POC Negative Negative (test code = 4297902) Ketones urine, POC (test Negative Negative code = 9803155) Specific gravity urine, 1.005-1.030 POC (test code = 4488827) Blood urine, POC (test Trace Negative A code = 4656101) pH urine, POC (test code See_Comment [A utomated message] = 4961757) The system [employer] generated this result transmitted ref erence range: 5.0, 5.5 , 6.0, 6.5, 7.0, 7.5, 8.0, 8.5. The refere nce range was not u sed to interpret this result as normal/abnor mal. Protein urine, POC (test Negative Negative code = 9456786) Urobilinogen urine, POC <2.0 See_Comment [Au tomated message] (test code = 7595505) The sy stem which generated this result transmitted ref erence range: <=2.0. T he reference range was not used to int erpret this result as normal/abnormal . Nitrite urine, POC (test Negative Negative code = 2786838) Leukocyte esterase Negative Negative urine, POC (test code = 2588066) Lab Interpretation (test Abnormal code = 02556-9) [facility] urinalysis [id number] 18:20:00 Test Item Value Reference Range Interpretation Comments Color urine, POC (test Straw code = 4164188) Clarity urine, POC (test Clear code = 1497784) Glucose urine, POC (test Negative Negative code = 7060819) Bilirubin urine, POC Negative Negative (test code = 3315446) Ketones urine, POC (test Negative Negative code = 6971842) Specific gravity urine, 1.005-1.030 POC (test code = 3908048) Blood urine, POC (test Trace Negative A code = 7731973) pH urine, POC (test code See_Comment [A utomated message] = 0418569) The system [employer] generated this result transmitted ref erence range: 5.0, 5.5 , 6.0, 6.5, 7.0, 7.5, 8.0, 8.5. The refere nce range was not u sed to interpret this result as normal/abnor mal. Protein urine, POC (test Negative Negative code = 6391999) Urobilinogen urine, POC <2.0 See_Comment [Au tomated message] (test code = 1593904) The sy stem which generated this result transmitted ref erence range: <=2.0. T he reference range was not used to int erpret this result as normal/abnormal . Nitrite urine, POC (test Negative Negative code = 2638958) Leukocyte esterase Negative Negative urine, POC (test code = 3384865) Lab Interpretation (test Abnormal code = 67592-0) [facility] urinalysis [id number] 18:20:00 Test Item Value Reference Range Interpretation Comments Color urine, POC (test Straw code = 3977708) Clarity urine, POC (test Clear code = 5476783) Glucose urine, POC (test Negative Negative code = 8804718) Bilirubin urine, POC Negative Negative (test code = 4564153) Ketones urine, POC (test Negative Negative code = 7450444) Specific gravity urine, 1.005-1.030 POC (test code = 7078413) Blood urine, POC (test Trace Negative A code = 5026894) pH urine, POC (test code See_Comment [A utomated message] = 2548380) The system [employer] generated this result transmitted ref erence range: 5.0, 5.5 , 6.0, 6.5, 7.0, 7.5, 8.0, 8.5. The refere nce range was not u sed to interpret this result as normal/abnor mal. Protein urine, POC (test Negative Negative code = 9866535) Urobilinogen urine, POC <2.0 See_Comment [Au tomated message] (test code = 6418043) The sy stem which generated this result transmitted ref erence range: <=2.0. T he reference range was not used to int erpret this result as normal/abnormal . Nitrite urine, POC (test Negative Negative code = 0090269) Leukocyte esterase Negative Negative urine, POC (test code = 5123279) Lab Interpretation (test Abnormal code = 98769-7) [facility] urinalysis [id number] 18:20:00 Test Item Value Reference Range Interpretation Comments Color urine, POC (test Straw code = 4270598) Clarity urine, POC (test Clear code = 9923168) Glucose urine, POC (test Negative Negative code = 0940965) Bilirubin urine, POC Negative Negative (test code = 0963305) Ketones urine, POC (test Negative Negative code = 8087734) Specific gravity urine, 1.015 1.005-1.030 POC (test code = 3627935) Blood urine, POC (test Trace Negative A code = 6188080) pH urine, POC (test code 8.0 See_Comment [A utomated message] = 7525027) The system [employer] generated this result transmitted ref erence range: 5.0, 5.5 , 6.0, 6.5, 7.0, 7.5, 8.0, 8.5. The refere nce range was not u sed to interpret this result as normal/abnor mal. Protein urine, POC (test Negative Negative code = 3475649) Urobilinogen urine, POC <2.0 <=2.0 (test code = 4777280) Nitrite urine, POC (test Negative Negative code = 3498354) Leukocyte esterase Negative Negative urine, POC (test code = 4533010) Lab Interpretation (test Abnormal code = 83270-8) [facility]-4 (COVID-19) RNA [Presence] in Respiratory specimen by LATESHA with probe [id number] 09:55:01 Test Item Value Reference Range Interpretation Comments SARS-CoV-2 (COVID-19) RNA Not detected Not-Detected [Presence] in Respiratory specimen by LATESHA with probe detection (test code = 52405-2) Whether patient is employed in a healthcare setting (test code = 66303-3) Whether the patient has symptoms related to condition of interest (test code = 36737-7) Patient was hospitalized because of this condition (test code = 23000-5) Whether the patient was admitted to intensive care unit (ICU) for condition of interest (test code = 86046-0) Whether patient resides in a congregate care setting (test code = 33086-8) [facility]COVID[facility]) RNA [Presence] in Respiratory specimen by LATESHA with probe [id number] 03:07:44 Test Item Value Reference Range Interpretation Comments SARS-CoV-2 (COVID-19) RNA Not detected Not-Detected [Presence] in Respiratory specimen by LATESHA with probe detection (test code = 32261-2) Whether patient is employed in a healthcare setting (test code = 78867-2) Whether the patient has symptoms related to condition of interest (test code = 72987-3) Patient was hospitalized because of this condition (test code = 80658-3) Whether the patient was admitted to intensive care unit (ICU) for condition of interest (test code = 52062-4) Whether patient resides in a congregate care setting (test code = 07089-2) [facility]OVID[facility]19) RNA [Presence] in Respiratory specimen by LATESHA with probe [id number] 02:34:50 Test Item Value Reference Range Interpretation Comments SARS-CoV-2 (COVID-19) RNA Not detected Not-Detected [Presence] in Respiratory specimen by LATESHA with probe detection (test code = 51438-0) Whether patient is employed in a healthcare setting (test code = 16445-1) Whether the patient has symptoms related to condition of interest (test code = 28014-4) Patient was hospitalized because of this condition (test code = 31623-2) Whether the patient was admitted to intensive care unit (ICU) for condition of interest (test code = 53991-5) Whether patient resides in a congregate care setting (test code = 05362-0) [facility]-CoV-2 (COVID-19) RNA [Presence] in Respiratory specimen by LATESHA with probe [id number] 22:46:50 Test Item Value Reference Range Interpretation Comments SARS-CoV-2 (COVID-19) RNA Not detected Not-Detected [Presence] in Respiratory specimen by LATESHA with probe detection (test code = 71116-7) [facility]-CoV-2 (COVID-19) RNA [Presence] in Respiratory specimen by LATESHA with probe [id number] 10:19:38 Test Item Value Reference Range Interpretation Comments SARS-CoV-2 (COVID-19) RNA Not detected Not-Detected [Presence] in Respiratory specimen by LATESHA with probe detection (test code = 09582-2) [facility]-CoV-2 (COVID-19) RNA [Presence] in Respiratory specimen by LATESHA with probe [id number] 00:17:03 Test Item Value Reference Range Interpretation Comments SARS-CoV-2 (COVID-19) RNA Not detected Not-Detected [Presence] in Respiratory specimen by LATESHA with probe detection (test code = 84647-1) [facility]-CoV-2 (COVID-19) RNA [Presence] in Respiratory specimen by LATESHA with probe [id number] 00:59:15 Test Item Value Reference Range Interpretation Comments SARS-CoV-2 (COVID-19) RNA Not detected Not-Detected [Presence] in Respiratory specimen by LATESHA with probe detection (test code = 95754-2) [facility] i-STAT OW2018-01-18 08:12:00 Test Item Value Reference [...] PELVIS WITHOUT CONTRAST, RENAL STONE PROTOCOL:Location code: [id number] HISTORY: Flank painCOMPARISON: CT abdomen and pelvis [...] Range Interpretation Comments COLOR (test code = [place] YELLOW A COLU) CLARITY (test code = [...] 11:03:05CT abdomen and pelvis with contrastLocation Code: [id number] HISTORY: Lower abdominal painCOMPARISON: NoneTechnique: Helical CT [...] Date/Time Note Provider Source 2021-08-08 18:57:00-00:00 [facility] ([facility]) EMERGENCY PROVIDER REPORT REPORT#:[id number] REPORT STATUS: Signed DATE:08/08/21 TIME: 1856 PATIENT: HERSON JACKSON UNIT #: [id number] ROOM/BED: AGE: 51 SEX: F PCP PHYS: No Primary or Family Ph ysician SERVICE AUTHOR: Baldomero Stanley * ALL edits or amendments must be made on the Specle/Alignment Healthcare document * Baldomero Stanley 08/08/211856: HPI- Female [...] Ox 96 08/08 1252 B/P 127/86 08/08 125 B/P Mean 99.5 08/08 1252 O2 Delivery Room air 08/08 125 Temp 98.6 08/08 125 Pulse 77 08/08 1252 Resp 18 08/08 [...] pH (5.0 - 8.0) 5.0 Ur Specific [place] (<1.030) 1.018 Urine Protein (Negative mg/dL) NEGATIVE [...] (Auto) (20.5 - 45.5 %) 15.8 L [place] % (Auto) (5.5 - 11.7 %) 9.8 Eos % (Auto) (0.9 - 2.9 %) 0.7 L Baso % (Auto) (0.2 - 1.0 %) 0.3 Neut # (Auto) (2.2 - 4.8 x10 3/uL) 6.69 H Lymph # (Auto) (1.3 - 2.9 x10 3/uL) 1.45 [place] # (Auto) (0.3 - 0.8 x10 3/uL) [...] No acute cardiopulmonary findings seen. Impression By: Camden Argueta MD CAT SCAN - CT ABD PELVIS [...] acute ischemia; the rhythm is normal sinus; OH does not demonstrate AV heart block; QRS does not demonstrate a bundle branch block; ST and T waves do not show any ST elevation to sugg est acute PR; see [place] for details and measurements; agree with computer [...] symptoms. Pt verbalized understanding. Time of Re-Eval 1854 Re-Eval Status Improved Eval Following Treatment Pt. [...] her phone number. Her phone number is [phone]. That number did not work . I called the parents back and they stated that they we re attempting to call her as well but thinks she may be asleep. Time of Re-Eval 2312 Re-Evaluation/Progress 3 Text/Dict Note I was able to get in touch with the patient. I chiqui xplained to her the missed diagnosis on my part. We dis cussed the diagnosis and she agreed to pickle pumper both doxycycline and Flagyl antib iotics at the [facility] with ZIP Code [id number]. I instructed the patient that gretchen florian does not have to take the Macrobid any longer. Patient verbalized understanding and states she will pickle pumper her prescriptions in the morning. Time of Re-Eval 2319 ED Course Medication(s) Ordered Medication(s) Ordered: Anti-Infective [...] Ox 96 08/08 1252 B/P 127/86 08/08 125 B/P Mean 99.5 08/08 1252 O2 Delivery [...] PHENAZOPYRIDINE (PYRIDIUM) 200 MG PO TID PRN [place] N DYSURIA #6 TABS TAKE AFTER MEALS. DOXYCYCLINE HYCLATE (VIBRAMYCIN) 100 MG PO Q12H 14 Days #28 CAPS metroNIDAZOLE (FLAGYL) 500 MG PO BID 14 Days #28 TABS Prescriptions Reviewed Risks, Benefits, Alternat cole treatment Patient Instructions Urinary Tract Infections in Women Departure Forms FREE OR LOW COST CLINICS HAGUE PCP LIST UROLOGIST LIST Discharge Note I [...] symptoms should prompt an immediate return to [facility] or the closest emergency department or a call to 911. Naren Sapp 08/09/21 0259: HPI- Female General Initial Greet Date/Time 08/08/21 1248 Patient Discharge Departure Supervising Physician Note Ignacio Saw Pt Alone I have reviewed the PA/ASSISTANT BUSINESS MANAGER's note and plan of car e. I was available for consultation as needed at al l times during the patient's visit in the emergency department. Electronically Signed by Baldomero Stanley on 0 08/09/21 at 0148 at 0300 RPT #:[id number] END OF REPORT 2021-08-08 13:00:00-00:00 [facility] ([facility]) EMERGENCY PROVIDER REPORT REPORT#:[id number] REPORT STATUS: Signed DATE:08/08/21 TIME: 1300 PATIENT: HERSON JAKCSON UNIT #: [id number] ROOM/BED: AGE: 51 SEX: F PCP PHYS: No Primary or Family P hysician SERVICE AUTHOR: Debo GutierrezP * ALL edits or amendments must be made on the Specle/computer document * Debo Gutierrez 08/08/21 1300: Provider [...] by Norberto Mendez MD on at 1200 [facility] #:[id number] END OF REPORT
[2022-11-16] MEDS ORDERED: ASPIRIN 81 MG CHEWABLE TABLET ONE (15:57)
--- NOTE | 2022-11-16 16:03 | RAD REPORT ---
EXAM DESCRIPTION: Julita Pereiar And Ute (2 Views)11/16/2022 3:48 pm CLINICAL HISTORY: Cough COMPARISON: October 2022 FINDINGS: The lungs appear clear of acute infiltrate. The heart is normal size IMPRESSION: No acute abnormalities displayed
[2022-11-16 16:07] LABS: Absolute Lymphocytes (CBC) 2.2 K/uL (0.7-4.9); Hematocrit 41.8 % (36.0-45.0); Lymphocytes % 31.7 % (15.3-44.8); MCV 91.3 fL (80-100); MPV 7.6 fL (7.6-11.3); Platelets 261 thou/uL (152-406); RBC Red Blood Cell Count 4.58 M/uL (3.86-4.86)
[2022-11-16 16:25] LABS: Magnesium 2.2 mg/dL (1.6-2.4); Potassium 4.4 mEq/L (3.5-5.1); Troponin High Sensitivity 3.3 pg/mL (<58.9)
--- NOTE | 2022-11-16 16:34 | ER ---
Nurse's Notes [facility] Name: Fany Meza Age: 52 yrs Sex: Female : 1970 Arrival Date: 11/16/2022 Time: 15:07 Bed 20 Private MD: Diagnosis: Chest pain, unspecified Presentation: 11/16 15:19 Chief complaint: Patient states: left sided chest pain that radiates down left arm and cm10 to back between shoulder blades X3 days. Pt states that the pain is intermittent and describes it as an aching pain. Coronavirus screen: Vaccine status: Patient reports receiving the 2nd dose of the covid vaccine. Ebola Screen: No symptoms or risks identified at this time. Initial Sepsis Screen: Does the patient meet any 2 criteria? No. Patient's initial sepsis screen is negative. Does the patient have a suspected source of infection? No. Patient's initial sepsis screen is negative. Risk Assessment: Do you want to hurt yourself or someone else? Patient reports no desire to harm self or others. Onset of symptoms was November 16, 2022. 15:19 Method Of Arrival: Ambulatory cm10 15:19 Acuity: SHARAN 2 cm10 Historical: - Allergies: 15:20 No Known Allergies; cm10 - PMHx: 15:20 cervical cancer; Hep C , in remission; Hypertensive disorder; cm10 - PSHx: 15:20 section; neck; cm10 - Immunization history:: Adult Immunizations unknown. - Social history:: Smoking status: Patient reports the use of cigarette tobacco products, denies chronic smoking, but will smoke occasionally. Screenin:00 [facility] ED Fall Risk Assessment (Adult) History of falling in the last 3 months, ph including since admission No falls in past 3 months (0 pts) Confusion or Disorientation No (0 pts) Intoxicated or Sedated No (0 pts) Impaired Gait No (0 pts) Mobility Assist Device Used No (0 pt) Altered Elimination No (0 pt) Score/Fall Risk Level 0 - 2 = Low Risk Oriented to surroundings, Maintained a safe environment, Hourly rounding (assess needs \T\ fall precautionary measures) done, Used ambulatory aids as needed (educated on \T\ assisted with). Abuse screen: Denies threats or abuse. Denies injuries from another. Nutritional screening: No deficits noted. Tuberculosis screening: No symptoms or risk factors identified. Assessment: 15:59 General: Appears in no apparent distress. comfortable, well groomed, Behavior is calm, ph cooperative, appropriate for age. Pain: Complains of pain in anterior aspect of left upper chest and left breast Pain radiates to left arm. Pain: Pain began 2-3 days ago. Neuro: Level of Consciousness is awake, alert, obeys commands, Oriented to person, place, time, situation. Cardiovascular: Reports chest pain, Denies lightheadedness, nausea, shortness of breath, Rhythm is sinus rhythm Chest pain quality is squeezing, is located in left anterior chest wall radiates to left arm(s) episodes are intermittent. Respiratory: Airway is patent Respiratory effort is even, unlabored. Derm: Skin is pink, warm \T\ dry. Vital Signs: 15:19 BP 136 / 89; Pulse 74; Resp 16; Temp 98.3; Pulse Ox 95% ; Weight 79.38 kg; Height 5 ft. cm10 4 in. ; Pain 6/10; 16:01 BP 138 / 95; Pulse 63; Resp 18; Pulse Ox 98% on R/A; ph 15:19 Body Mass Index 30.04 (79.38 kg, 162.56 cm) cm10 15:19 Pain Scale: Adult cm10 ED Course: 15:11 Patient arrived in ED. rg4 15:13 Chris Grimes DO is Attending Physician. ms3 15:20 Triage completed. cm10 15:20 Arm band placed on Patient placed in an exam room, on a stretcher. cm10 15:37 Indigo Khoury, RN is Primary Nurse. ph 15:50 Chest Pa And Lat (2 Views) XRAY In Process Unspecified. EDMS 16:00 Patient has correct armband on for positive identification. Bed in low position. Call ph light in reach. Side rails up X 1. Client placed on continuous cardiac and pulse oximetry monitoring. NIBP monitoring applied. 16:01 Initial lab(s) drawn, by me, sent to lab. Inserted saline lock: 20 gauge in right ph antecubital area, using aseptic technique. Blood collected. Patient maintains SpO2 saturation greater than 95% on room air. 16:34 Dion Araujo MD is Referral Physician. ms3 17:00 No provider procedures requiring assistance completed. IV discontinued, intact, me1 bleeding controlled, No redness/swelling at site. Pressure dressing applied. Administered Medications: 15:58 Drug: Aspirin PO Chewable Tablet 324 mg Route: PO; ph Medication: 16:01 VIS not applicable for this client. ph Outcome: 16:34 Discharge ordered by . ms3 17:00 Discharged to home ambulatory. me1 17:00 Condition: stable 17:00 Discharge instructions given to patient, Instructed on discharge instructions, follow up and referral plans. Demonstrated understanding of instructions, follow-up care. 17:00 Patient left the ED. me1 Signatures: Dispatcher [employer] EDIndigo Maxwell RN RN ph Katerin Celeste rg4 Chris Grimes DO DO ms3 Jaimie Reyes, RN RN cm10 Jaz Ballard RN RN me1
--- NOTE | 2022-11-16 16:34 | EDPHYS ---
Physician Documentation [facility] Name: Fany Meza Age: 52 yrs Sex: Female : 1970 Arrival Date: 11/16/2022 Time: 15:07 Bed 20 Private MD: ED Physician Chris Grimes HPI: 11/16 15:22 This 52 yrs old Female presents to ER via Ambulatory with complaints of Chest Pain, Arm ms3 Pain. 15:22 52-year-old female with past medical history of cervical cancer, Abcede in remission, ms3 hypertension presents for chest pain for 3 days. Patient states she has experienced this intermittently for 6 months. Patient endorses radiation down her left arm. Patient states pain is currently a 6/10 and an aching feeling. Patient denies alleviating or inciting factors. Patient denies shortness of breath, nausea, vomiting, fevers, chills, sweats. Historical: - Allergies: 15:20 No Known Allergies; cm10 - PMHx: 15:20 cervical cancer; Hep C , in remission; Hypertensive disorder; cm10 - PSHx: 15:20 section; neck; cm10 - Immunization history:: Adult Immunizations unknown. - Social history:: Smoking status: Patient reports the use of cigarette tobacco products, denies chronic smoking, but will smoke occasionally. ROS: 15:22 Constitutional: Negative for fever, and chills. Neck: Negative for injury, pain, and ms3 swelling, Respiratory: Negative for shortness of breath, cough, wheezing, and pleuritic chest pain, Abdomen/GI: Negative for abdominal pain, nausea, vomiting, diarrhea, and constipation, Back: Negative for injury and pain. 15:22 Cardiovascular: Positive for chest pain. 15:22 All other systems are negative. Exam: 15:22 Constitutional: This is a well developed, well nourished patient who is awake, alert, ms3 and in no acute distress. Head/Face: Normocephalic, atraumatic. Neck: Trachea midline, no cervical lymphadenopathy. Supple, full range of motion without nuchal rigidity, or vertebral point tenderness. No Meningismus. Chest/axilla: Normal chest wall appearance and motion. Nontender with no deformity. Cardiovascular: Regular rate and rhythm with a normal S1 and S2. No gallops, murmurs, or rubs. Normal PMI, no JVD. No pulse deficits. Respiratory: Lungs have equal breath sounds bilaterally, clear to auscultation and percussion. No rales, rhonchi or wheezes noted. No increased work of breathing, no retractions or nasal flaring. Abdomen/GI: Soft, non-tender, with normal bowel sounds. No distension or tympany. No guarding or rebound. No evidence of tenderness throughout. Skin: Warm, dry with normal turgor. Normal color with no rashes, no lesions, and no evidence of cellulitis. MS/ Extremity: Pulses equal, no cyanosis. Neurovascular intact. Full, normal range of motion. 15:22 ECG was reviewed by the Attending Physician. Vital Signs: 15:19 BP 136 / 89; Pulse 74; Resp 16; Temp 98.3; Pulse Ox 95% ; Weight 79.38 kg; Height 5 ft. cm10 4 in. ; Pain 6/10; 16:01 BP 138 / 95; Pulse 63; Resp 18; Pulse Ox 98% on R/A; ph 15:19 Body Mass Index 30.04 (79.38 kg, 162.56 cm) cm10 15:19 Pain Scale: Adult cm10 MDM: 15:34 Patient medically screened. ms3 20:27 Differential diagnosis: abnormal EKG, acute myocardial infarction, acute pericarditis, ms3 anxiety, coronary artery disease chest wall pain. HEART Score: History: Slightly Suspicious (0), ECG: Normal (0), Age: > 45 and < 65 years (1), Risk Factors: 1 or 2 risk factors (1), Troponin: < or = 1 x Normal Limit (0), Total Score = 2. The patient was given aspirin in the Emergency Department. Data reviewed: vital signs, nurses notes, lab test result(s), EKG, radiologic studies, and as a result, I will discharge patient. I considered the following discharge prescriptions or medication management in the emergency department Medications were administered in the Emergency Department. See MAR. Independent interpretation of the following test(s) in the Emergency Department EKG: See my EKG interpretation above. Care significantly affected by the following chronic conditions: Hypertension. Counseling: I had a detailed discussion with the patient and/or guardian regarding: the historical points, exam findings, and any diagnostic results supporting the discharge/admit diagnosis, lab results, radiology results, the need for outpatient follow up, to return to the emergency department if symptoms worsen or persist or if there are any questions or concerns that arise at home. Response to treatment: the patient's symptoms have markedly improved after treatment, and as a result, I will discharge patient. Special discussion: Based on the patient's history, exam, and Dx evaluation, there is no indication for emergent intervention or inpatient Tx. It is understood by the patient/guardian that if the Sx's persist or worsen they need to return immediately for re-evaluation. ED course: Discussed patient's labs, chest x-ray, EKG with her prior to discharge. Patient to follow-up with Dr. Araujo in 1 to 2 days. Patient understands and agrees with plan. All questions were answered. Return precautions discussed include worsening symptoms, or any other concerns. 11/16 15:22 Order name: Basic Metabolic Panel; Complete Time: 16:30 ms3 11/16 15:22 Order name: CBC with Diff; Complete Time: 16:30 ms3 11/16 15:22 Order name: Magnesium; Complete Time: 16:30 ms3 11/16 15:22 Order name: Troponin HS; Complete Time: 16:30 ms3 11/16 15:22 Order name: Chest Pa And Lat (2 Views) XRAY; Complete Time: 16:30 ms3 11/16 15:22 Order name: EKG; Complete Time: 15:23 ms3 11/16 15:22 Order name: Cardiac monitoring; Complete Time: 15:38 ms3 11/16 15:22 Order name: EKG - Nurse/Tech; Complete Time: 15:38 ms3 11/16 15:22 Order name: IV Saline Lock; Complete Time: 15:58 ms3 11/16 15:22 Order name: Labs collected and sent; Complete Time: 15:59 ms3 11/16 15:22 Order name: O2 Per Protocol; Complete Time: 15:38 ms3 11/16 15:22 Order name: O2 Sat Monitoring; Complete Time: 15:38 ms3 EC:22 Rate is 69 beats/min. Rhythm is regular. QRS [place] is Normal. GA interval is normal. QRS ms3 interval is normal. Clinical impression: NSR w/ Non-specific ST/T Changes. Interpreted by me. Reviewed by me. Administered Medications: 15:58 Drug: Aspirin PO Chewable Tablet 324 mg Route: PO; ph Disposition Summary: 11/16/22 16:34 Discharge Ordered Location: Home ms3 Condition: Stable ms3 Diagnosis - Chest pain, unspecified ms3 Followup: ms3 - With: Dion Araujo MD - When: 1 - 2 days - Reason: Recheck today's complaints Discharge Instructions: - Discharge Summary Sheet ms3 - Nonspecific Chest Pain, Adult ms3 Forms: - Medication Reconciliation Form ms3 - Thank You Letter ms3 - Antibiotic Education ms3 - Prescription Opioid Use ms3 - Patient Portal Instructions ms3 Signatures: Dispatcher [employer] Indigo Moon RN RN ph Chris Grimes DO DO ms3 Jaimie Reyes RN RN cm10
[2022-11-16 17:17] VITALS: TEMP 98.3
[2022-11-16 17:18] VITALS: BP 138/95; O2SAT 98
--- NOTE | 2022-11-18 18:15 | EKG ---
Test Date: 2022-11-16 Test Time: 15:21:14 [place]: PH MEASUREMENT RESULTS: Intervals: Rate: 69 NH: 126 QRSD: 78 QT: 414 QTc: 443 [place]: P: 40 NH: 126 QRS: 39 T: 15 INTERPRETIVE STATEMENTS: Normal sinus rhythm Low voltage QRS ST abnormality, possible digitalis effect Abnormal ECG Compared to ECG 09/13/2022 10:44:28 Low QRS voltage now present ST (T wave) deviation now present Ventricular premature complex(es) no longer present Electronically Signed On 11-18-22 18:12:12 CDT by Dion Araujo
== END 2022-11-16 17:00 | disposition home or self-care (01) ==
LOC: ER 15:07
DX: R07.9 Chest pain, unspecified (principal); I10 Essential (primary) hypertension; Z72.0 Tobacco use
CPT/HCPCS: 36415; 71046; 80048; 83735; 84484; 85025; 93005; 99284

== ENCOUNTER 2022-12-03 22:57 | Emergency (ER) | payer OTHER ==
--- OUTSIDE RECORDS SUMMARY | 2022-12-03 23:10 | XMS REPORT | Continuity of Care Document ---
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 tablet (six) hours as needed for moderate pain or severe pain for up to 2 days .acute pain. Max Daily Amount: 4 tablets HYDROcodone 2022-0 2021- No [id number] 1{tbl} Q6H Take 1 [facility] -acetaminop 6-21 06-[address] hen ([facility]) 00:00: 00:00 mouth [facility]325 mg 00 :00 every 6 l per tablet (six) hours as needed for moderate pain or severe pain for up to 2 days .acute pain. Max Daily Amount: 4 tablets HYDROcodone 2-0 2021- No [id number] 1{tbl} Q6H Take 1 [facility] -acetaminop 6-21 06-[address] [facility] ([facility]) 00:00: 00:00 mouth [facility]325 mg 00 :00 every 6 l per tablet (six) hours as needed for moderate pain or severe pain for up to 2 days .acute pain. Max Daily Amount: 4 tablets HYDROcodone 2-0 2021- No [id number] 1{tbl} Q6H Take 1 [facility] -acetaminop 6-21 06-[address] [facility] ([facility]) 00:00: 00:00 mouth [facility] 5-325 mg 00 :00 every 6 l per tablet (six) hours as needed for moderate pain or severe pain for up to 2 days .acute pain. Max Daily Amount: 4 tablets HYDROcodone 2-0 2021- No [id number] 1{tbl} Q6H Take 1 [facility] -acetaminop 6-21 06-[address] [facility] ([facility]) 00:00: 00:00 mouth [facility]-325 mg 00 :00 every 6 l per tablet (six) hours as needed for moderate pain or severe pain for up to 2 days .acute pain. Max Daily Amount: 4 tablets HYDROcodone 2022-0 2021- No [id number] 1{tbl} Q6H Take 1 [facility] -acetaminop 6-21 06-[address] [facility] ([facility]) 00:00: 00:00 mouth [facility] 5-325 mg 00 :00 every 6 l per tablet (six) hours as needed for moderate pain or severe pain for up to 2 days .acute pain. Max Daily Amount: 4 tablets HYDROcodone 2022-0 2021- No 1{tbl} Q6H Take 1 [facility] -acetaminop 6-21 06-[address] [facility] ([facility]) 00:00: 00:00 mouth [facility] 5-325 mg 00 :00 every 6 l per tablet (six) hours as needed for moderate pain or severe pain for up to 2 days .acute pain. Max Daily Amount: 4 tablets HYDROcodone 2021-0 2021- No 1{tbl} Q6H Take 1 [facility] -acetaminop 6-21 06-[address] [facility] ([facility]) 00:00: 00:00 mouth [facility] 5-325 mg 00 :00 every 6 l per tablet (six) hours as needed for moderate pain or severe pain for up to 2 days .acute pain. Max Daily Amount: 4 tablets HYDROcodone 2021-0 2021- 1{tbl} Q6H Take 1 [facility] -acetaminop 6-21 06-[address] [facility] ([facility]) 00:00: 00:00 mouth [facility]-325 mg 00 :00 every 6 l per tablet (six) hours as needed for moderate pain or severe pain for up to 2 days .acute pain. Max Daily Amount: 4 tablets HYDROcodone 2021-0 2021- No 1{tbl} Q6H Take 1 [facility] -acetaminop 6-21 06-[address] [facility] ([facility]) 00:00: 00:00 mouth [facility]-325 mg 00 :00 every 6 l per tablet (six) hours as needed for moderate pain or severe pain for up to 2 days .acute pain. Max Daily Amount: 4 tablets HYDROcodone 2021-0 2021- No 1{tbl} Q6H Take 1 [facility] -acetaminop 6-21 06-[address] [facility] ([facility]) 00:00: 00:00 mouth [facility]-325 mg 00 :00 every 6 l per tablet (six) hours as needed for moderate pain or severe pain for up to 2 days .acute pain. Max Daily Amount: 4 tablets HYDROcodone 2021-0 2021- No 1{tbl} Q6H Take 1 [facility] -acetaminop 6-21 06-[address] [facility] ([facility]) 00:00: 00:00 mouth [facility] 5-325 mg 00 :00 every 6 l per tablet (six) hours as needed for moderate pain or severe pain for up to 2 days .acute pain. Max Daily Amount: 4 tablets HYDROcodone 2022-0 2021- No [id number] 1{tbl} Q6H Take 1 [facility] -acetaminop 6-21 06-[address] [facility] ([facility]) 00:00: 00:00 mouth [facility]325 mg 00 :00 every 6 l per tablet (six) hours as needed for moderate pain or severe pain for up to 2 days .acute pain. Max Daily Amount: 4 tablets HYDROcodone 2022-0 2021- No [id number] 1{tbl} Q6H Take 1 [facility] -acetaminop 6-21 06-[address] [facility] ([facility]) 00:00: 00:00 mouth [facility]-325 mg 00 :00 every 6 l per tablet (six) hours as needed for moderate pain or severe pain for up to 2 days .acute pain. Max Daily Amount: 4 tablets HYDROcodone 2-0 2021- No [id number] 1{tbl} Q6H Take 1 [facility] -acetaminop 6-21 06-[address] [facility] ([facility]) 00:00: 00:00 mouth [facility]-325 mg 00 :00 every 6 l per tablet (six) hours as needed for moderate pain or severe pain for up to 2 days .acute pain. Max Daily Amount: 4 tablets HYDROcodone 2022-0 2021- No [id number] 1{tbl} Q6H Take 1 [facility] -acetaminop 6-21 06-[address] [facility] ([facility]) 00:00: 00:00 mouth [facility] 5-325 mg 00 :00 every 6 l per tablet (six) hours as needed for moderate pain or severe pain for up to 2 days .acute pain. Max Daily Amount: 4 tablets HYDROcodone 2022-0 2021- No [id number] 1{tbl} Q6H Take 1 [facility] -acetaminop 6-21 06-[address] [facility] ([facility]) 00:00: 00:00 mouth [facility] 5-325 mg 00 :00 every 6 l per tablet (six) hours as needed for moderate pain or severe pain for up to 2 days .acute pain. Max Daily Amount: 4 tablets HYDROcodone 2022-0 2021- No [id number] 1{tbl} Q6H Take 1 [facility] -acetaminop 6-21 06-[address] [facility] ([facility]) 00:00: 00:00 mouth [facility] 5-325 mg 00 :00 every 6 l per tablet (six) hours as needed for moderate pain or severe pain for up to 2 days .acute pain. Max Daily Amount: 4 tablets HYDROcodone 2-0 2021- No [id number] 1{tbl} Q6H Take 1 [facility] -acetaminop 6-21 06-[address] [facility] ([facility]) 00:00: 00:00 mouth [facility]-325 mg 00 :00 every 6 l per tablet (six) hours as needed for moderate pain or severe pain for up to 2 days .acute pain. Max Daily Amount: 4 tablets HYDROcodone 2-0 2021- No [id number] 1{tbl} Q6H Take 1 [facility] -acetaminop 6-21 06-[address] [facility] ([facility]) 00:00: 00:00 mouth [facility]-325 mg 00 :00 every 6 l per tablet (six) hours as needed for moderate pain or severe pain for up to 2 days .acute pain. Max Daily Amount: 4 tablets HYDROcodone 2-0 2021- No [id number] 1{tbl} Q6H Take 1 [facility] -acetaminop 6-21 06-[address] [facility] ([facility]) 00:00: 00:00 mouth [facility]-325 mg 00 :00 every 6 l per tablet (six) hours as needed for moderate pain or severe pain for up to 2 days .acute pain. Max Daily Amount: 4 tablets HYDROcodone 2022-0 2021- No [id number] 1{tbl} Q6H Take 1 [facility] -acetaminop 6-21 06-[address] [facility] ([facility]) 00:00: 00:00 mouth [facility]-325 mg 00 :00 every 6 l per tablet (six) hours as needed for moderate pain or severe pain for up to 2 days .acute pain. Max Daily Amount: 4 tablets HYDROcodone 2022-0 2021- No [id number] 1{tbl} Q6H Take 1 [facility] -acetaminop 6-21 06-[address] [facility] ([facility]) 00:00: 00:00 mouth [facility]325 mg 00 :00 every 6 l per tablet (six) hours as needed for moderate pain or severe pain for up to 2 days .acute pain. Max Daily Amount: 4 tablets HYDROcodone 2022-0 2022- No [id number] 1{tbl} Q6H Take 1 [facility] -acetaminop 6-21 06-[address] [facility] ([facility]) 00:00: 00:00 [facility] 5-325 mg 00 :00 every 6 l per tablet (six) hours as needed for moderate pain or severe pain for up to 2 days .acute pain. Max Daily Amount: 4 tablets HYDROcodone 2022-0 2022- No [id number] 1{tbl} Q6H Take 1 [facility] -acetaminop 6-21 06-[address] [facility] ([facility]) 00:00: 00:00 mouth [facility]-325 mg 00 :00 every 6 l per tablet (six) hours as needed for moderate pain or severe pain for up to 2 days .acute pain. Max Daily Amount: 4 tablets HYDROcodone 2022-0 2022- No [id number] 1{tbl} Q6H Take 1 [facility] -acetaminop 6-21 06-[address] [facility] ([facility]) 00:00: 00:00 [facility]325 mg 00 :00 every 6 l per tablet (six) hours as needed for moderate pain or severe pain for up to 2 days .acute pain. Max Daily Amount: 4 tablets amLODIPine 2022-0 2022- No 5mg QD Take 1 [facility] (NORVASC) 5 - 08-19 tablet (5 st mg tablet 00:00: [...] DAILY WITH MEALS meclizine 2021- No 25mg Q.[id number] Take 1 [facility] ([facility]IV[facility]) 08-26-10 [id number] tablet (25 st 25 mg 00:00: 00:00 3D mg total) [facility] tablet 00 :00 by mouth 3 l (three) times a day as needed for dizziness for up to 30 days. meclizine 2021- No 25mg Q.[id number] Take 1 [facility] ([facility]) 08-26-10 [id number] tablet (25 st 25 mg 00:00: 00:00 3D mg total) [facility] a tablet 00 :00 by mouth 3 l (three) times a day as needed for dizziness for up to 30 days. meclizine 2021- No 25mg Q.[id number] Take 1 [facility] ([facility]) 08-26-10 [id number] tablet (25 st 25 mg 00:00: 00:00 3D mg total) [facility] a tablet 00 :00 by mouth 3 l (three) times a day as needed for dizziness for up to 30 days. meclizine 2021- No 25mg Q.[id number] Take 1 [facility] ([facility]) 08-26-10 [id number] tablet (25 st 25 mg 00:00: 00:00 3D mg total) [facility] a tablet 00 :00 by mouth 3 l (three) times a day as needed for dizziness for up to 30 days. meclizine 2021- No 25mg Q.[id number] Take 1 [facility] ([facility]) 17 -10 [id number] tablet (25 st 25 mg 00:00: 00:00 3D mg total) [facility] a tablet 00 :00 by mouth 3 l (three) times a day as needed for dizziness for up to 30 days. meclizine 2021- No 25mg Q.[id number] Take 1 [facility] ([facility]) 08-26-10 [id number] tablet (25 st 25 mg 00:00: 00:00 3D mg total) [facility] a tablet 00 :00 by mouth 3 l (three) times a day as needed for dizziness for up to 30 days. meclizine 2021- No 25mg Q.[id number] Take 1 [facility] ([facility]) 08-26 [id number] tablet (25 st 25 mg 00:00: 00:00 3D mg total) Hospit a tablet 00 :00 by mouth 3 l (three) times a day as needed for dizziness for up to 30 days. meclizine 2021- No 25mg Q.[id number] Take 1 [facility] ([facility]) 08-26 [id number] tablet (25 st 25 mg 00:00: 00:00 3D mg total) Hospit a tablet 00 :00 by mouth 3 l (three) times a day as needed for dizziness for up to 30 days. meclizine 2021- No 25mg Q.[id number] Take 1 [facility] ([facility]) 08-26 [id number] tablet (25 st 25 mg 00:00: 00:00 3D mg total) Hospit a tablet 00 :00 by mouth 3 l (three) times a day as needed for dizziness for up to 30 days. meclizine 2021- No 25mg Q.[id number] Take 1 [facility] ([facility]) 08-26 [id number] tablet (25 st 25 mg 00:00: 00:00 [...] times a day for 60 days. pregabalin 2021- No 50mg Q.5D Take [...] (two) l times a day. acetaminoph 2021- 1{tbl} Q6H Take 1-2 [facility] en-codeine 4-27 [...] 5 days .acute pain. acetamin[place] 2021- [place] [id number] 1{tbl} Q6H Take 1-2 [facility] en-codeine 08-06-[address] (TYLENOL 00:00: 04:59 mouth [facility] WITH 00 :00 every 6 l CODEINE #3) (six) 300-30 mg hours as per tablet needed for moderate pain for up to 5 days .acute pain. acetamin[place] 2021- [place] [id number] 1{tbl} Q6H Take 1-2 [facility] en-codeine 08-06 05-[address] (TYLENOL 00:00: 04:59 mouth [facility] WITH 00 :00 every 6 l CODEINE #3) (six) 300-30 mg hours as per tablet needed for moderate pain for up to 5 days .acute pain. amoxicillin 2021- No [id number] 500mg Q.5D Take 1 [facility] (AMOXIL) 07-[address] 500 MG 00:00: 04:59 (500 mg Hospita tablet 00 :00 total) by l mouth 2 (two) times a day for 7 days. amoxicillin 2021- No [id number] 500mg Q.5D Take 1 [facility] ([facility]OXIL) 07-[address] 500 MG 00:00: 04:59 (500 mg [facility]osp[facility] tablet 00 :00 total) by l mouth 2 (two) times a day for 7 days. amoxicillin 2021- No [id number] 500mg Q.5D Take 1 [facility] ([facility]OXIL) 07-[address] 500 MG 00:00: 04:59 (500 mg [facility]osp[facility] tablet 00 :00 total) by l mouth 2 (two) times a day for 7 days. amoxicillin 2021- No [id number] 500mg Q.5D Take 1 [facility] ([facility]OXIL) 07-[address] 500 MG 00:00: 04:59 (500 mg [facility]osp[facility] tablet 00 :00 total) by l mouth 2 (two) times a day for 7 days. amoxicillin 2021- No [id number] 500mg Q.5D Take 1 [facility] (AMOXIL) 4-14 04-[address] 500 MG 00:00: 04:59 (500 mg [facility]osp[facility] tablet 00 :00 total) by l mouth 2 (two) times a day for 7 days. amoxicillin 2021- No [id number] 500mg Q.5D Take 1 [facility] ([facility]OXIL) 07-24-[address] 500 MG 00:00: 04:59 (500 mg [facility]osp[facility] tablet 00 :00 total) by l mouth 2 (two) times a day for 7 days. amoxicillin 2021- No [id number] 500mg Q.5D Take 1 [facility] (AMOXIL) 07-24-[address] 500 MG 00:00: 04:59 (500 mg [facility]osp[facility] tablet 00 :00 total) by l mouth 2 (two) times a day for 7 days. amoxicillin 2021- No [id number] 500mg Q.5D Take 1 [facility] (AMOXIL) 07-24 [...] Take 1 [facility] (NORVASC) 5 07-15 tablet (5 st mg tablet 00:00: 00:00 mg total) [facility] 00 :00 by mouth l daily. amLODIPine 2-0 2- No 5mg QD Take 1 [facility] (NORVASC) 5 07-15 tablet (5 st mg tablet 00:00: 00:00 mg total) [facility] 00 :00 by mouth l daily. amLODIPine 2-0 2- No 5mg QD Take 1 [facility] (NORVASC) 5 07-15 tablet (5 st mg tablet 00:00: 00:00 mg total) [facility] 00 :00 by mouth l daily. naproxen 2-0 2- No 500mg Q.5D Take 1 [facility] di (Naprosyn) -08 09- tablet st 500 MG 00:00: 00:00 (500 [...] (eight) hours for 30 days. amoxicillin No [id number] 500mg Q.5D Take 1 [facility] (AMOXIL) 06-[address] 500 MG 00:00: 04:59 (500 mg [facility]ospita tablet 00 :00 total) by l mouth in the morning and 1 tablet (500 mg total) before bedtime. Do all this for 7 days. amoxicillin No [id number] 500mg Q.5D Take 1 [facility] (AMOXIL) 06-[address] 500 MG 00:00: 04:59 (500 mg [facility]osp[facility] tablet 00 :00 total) by l mouth in the morning and 1 tablet (500 mg total) before bedtime. Do all this for 7 days. amoxicillin No [id number] 500mg Q.5D Take 1 [facility] (AMOXIL) 06-[address] 500 MG 00:00: 04:59 (500 mg [facility]osp[facility] tablet 00 :00 total) by l mouth in the morning and 1 tablet (500 mg total) before bedtime. Do all this for 7 days. amoxicillin No [id number] 500mg Q.5D Take 1 [facility] (AMOXIL) 06-[address] 500 MG 00:00: 04:59 (500 mg [facility]osp[facility] tablet 00 :00 total) by l mouth in the morning and 1 tablet (500 mg total) before bedtime. Do all this for 7 days. amoxicillin No [id number] 500mg Q.5D Take 1 [facility] (AMOXIL) 06-[address] 500 MG 00:00: 04:59 (500 mg [facility]osp[facility] tablet 00 :00 total) by l mouth in the morning and 1 tablet (500 mg total) before bedtime. Do all this for 7 days. amoxicillin No [id number] 500mg Q.5D Take 1 [facility] (AMOXIL) 06-[address] 500 MG 00:00: 04:59 (500 mg [facility]osp[facility] tablet 00 :00 total) by l mouth in the morning and 1 tablet (500 mg total) before bedtime. Do all this for 7 days. amoxicillin 2021-0 2021- No [id number] 500mg Q.5D Take 1 [facility] (AMOXIL) 06-[address] 500 MG 00:00: 04:59 (500 mg [facility]osp[facility] tablet 00 :00 total) by l mouth in the morning and 1 tablet (500 mg total) before bedtime. Do all this for 7 days. amoxicillin 2021-0 2021- No [id number] 500mg Q.5D Take 1 [facility] (AMOXIL) 06-[address] 500 MG 00:00: 04:59 (500 mg [facility]ospita tablet 00 :00 total) by l mouth in the morning and 1 tablet (500 mg total) before bedtime. Do all this for 7 days. naproxen 2021-0 2- No 500mg Q.5D Take [...] amLODIPine 2021-0 2022- No [facility] (NORVASC) 2- 04-05 [...] 00:00 Hospita tablet 00 :00 l HYDROcodone 2-0 2- No [id number] 1{tbl} Q6H Take 1 [facility] -acetaminop 1-23 01-[address] KILTR) 00:00: 05:59 mouth [facility] 5-325 mg 00 :00 every 6 l per tablet (six) hours as needed for moderate pain for up to 5 days .acute pain. Max Daily Amount: 4 tablets HYDROcodone 2022-0 2- No [id number] 1{tbl} Q6H Take 1 [facility] -acetaminop 1-23 -[address] [facility] ([facility]) 00:00: 05:59 [facility] 5-325 mg 00 :00 every 6 l per tablet (six) hours as needed for moderate pain for up to 5 days .acute pain. Max Daily Amount: 4 tablets HYDROcodone 2022-0 2022- [place] [id number] 1{tbl} Q6H Take 1 [facility] -acetaminop 1-23 -[address] [facility] ([facility]) 00:00: 05:59 [facility] 5-325 mg 00 :00 every 6 l per tablet (six) hours as needed for moderate pain for up to 5 days .acute pain. Max Daily Amount: 4 tablets HYDROcodone 2022-0 2021- No [id number] 1{tbl} Q6H Take 1 [facility] -acetaminop 1-23 -[address] Gaudena ([facility]) 00:00: 05:59 [facility] 5-325 mg 00 :00 every 6 l per tablet (six) hours as needed for moderate pain for up to 5 days .acute pain. Max Daily Amount: 4 tablets HYDROcodone 2022-0 2- No [id number] 1{tbl} Q6H Take 1 [facility] -acetaminop 1-23 -[address] [facility] ([facility]) 00:00: 05:59 mouth [facility] 5-325 mg 00 :00 every 6 l per tablet (six) hours as needed for moderate pain for up to 5 days .acute pain. Max Daily Amount: 4 tablets HYDROcodone 2022-0 2022- [place] [id number] 1{tbl} Q6H Take 1 [facility] -acetaminop 1-23 -[address] [facility] ([facility]) 00:00: 05:59 mouth [facility] 5-325 mg [...] for up to 30 [place] [id number] 1{tbl} Q6H Take 1 [facility] en-codeine 04-[address] (TYLENOL 00:00: 05:59 mouth [facility]osp[facility] WITH 00 :00 every 6 l CODEINE #3) (six) 300-30 mg hours as per tablet needed for severe pain for up to 5 days [place]. [place] [id number] 1{tbl} Q6H Take 1 [facility] en-codeine 04-12 [...] up to 5 days .acute pain. traMADoL 28 50mg Q6H Take 1 Metho di (ULTRAM) [...] to 5 days [place]. [place] [id number] 50mg Q6H Take 1 [facility] di (ULTRAM) [...] 1 Maria rris (LIORESAL) 9-24 tablet by [facility] 10 mg 00:00: mouth 2 tablet 00 times daily as needed (muscle spasms) STOP cyclobenza kasia (FLEXERIL) 10 mg tablet. baclofen 2019-0 Yes Neck pain 10mg Take 1 Maria rris (LIORESAL) 9-24 tablet by [facility] 10 mg 00:00: mouth 2 tablet 00 times daily as needed (muscle spasms) STOP cyclobenza kasia (FLEXERIL) 10 mg tablet. baclofen 2020-0 Yes Neck pain 10mg Take 1 Maria rris (LIORESAL) 9-24 tablet by [facility] 10 mg 00:00: mouth 2 tablet 00 times daily as needed (muscle spasms) STOP cyclobenza kasia (FLEXERIL) 10 mg tablet. baclofen 2020-0 Yes Neck pain 10mg Take 1 Maria rris (LIORESAL) 9-24 tablet by [facility] 10 mg 00:00: mouth 2 tablet 00 times daily as needed (muscle spasms) STOP cyclobenza kasia (FLEXERIL) 10 mg tablet. baclofen 2020-0 Yes Neck pain 10mg Take 1 Maria rris (LIORESAL) 9-24 tablet by [facility] 10 mg 00:00: mouth 2 tablet 00 times daily as needed (muscle spasms) STOP cyclobenza kasia (FLEXERIL) 10 mg tablet. baclofen 2020-0 Yes Neck pain 10mg Take 1 Maria rris (LIORESAL) 9-24 tablet by [facility] 10 mg 00:00: mouth 2 tablet 00 times daily as needed (muscle spasms) STOP cyclobenza kasia (FLEXERIL) 10 mg tablet. baclofen 2020-0 Yes Neck pain 10mg Take 1 Maria rris (LIORESAL) 9-24 tablet by [facility] 10 mg 00:00: mouth 2 tablet 00 times daily as needed (muscle spasms) STOP cyclobenza kasia (FLEXERIL) 10 mg tablet. baclofen 2020-0 Yes Neck pain 10mg Take 1 Maria rris (LIORESAL) 9-24 tablet by [facility] 10 mg 00:00: mouth 2 tablet 00 times daily as needed (muscle spasms) STOP cyclobenza kasia (FLEXERIL) 10 mg tablet. baclofen 2020-0 Yes Neck pain 10mg Take 1 Maria rris (LIORESAL) 9-24 tablet by [facility] 10 mg 00:00: mouth 2 tablet 00 times daily as needed (muscle spasms) STOP cyclobenza kasia (FLEXERIL) 10 mg tablet. baclofen 2020-0 Yes Neck pain 10mg Take 1 Maria rris (LIORESAL) 9-24 tablet by [facility] 10 mg 00:00: mouth 2 tablet 00 times daily as needed (muscle spasms) STOP cyclobenza kasia (FLEXERIL) 10 mg tablet. baclofen 2020-0 Yes Neck pain 10mg Take 1 Maria rris (LIORESAL) 9-24 tablet by [facility] 10 mg 00:00: mouth 2 tablet 00 times daily as needed (muscle spasms) STOP cyclobenza kasia (FLEXERIL) 10 mg tablet. baclofen 2020-0 Yes Neck pain 10mg Take 1 Maria rris (LIORESAL) 9-24 tablet by [facility] 10 mg 00:00: mouth 2 tablet 00 times daily as needed (muscle spasms) STOP cyclobenza kasia (FLEXERIL) 10 mg tablet. baclofen 2020-0 Yes Neck pain 10mg Take 1 Maria rris (LIORESAL) 9-24 tablet by [facility] 10 mg 00:00: mouth 2 [...] twice daily. varenicline 2020-0 Yes Encounter Start Tiomteo (CHANTIX) 1 09-11 for smoking taking Health [...] 1 Tom ris (MOTRIN) 4-13 tablet by [facility] 600 mg 00:00: mouth tablet 00 every [...] for Pain. MULTIVITAMI 2019-0 Yes Take by [facility] ris N (DAILY 9-24 mouth. Health VITAMIN OR) 08:09: 11 sulfamethox 2019-0 Yes 1{tbl} Q.5D Take 1 Maria rris azole-trime 9-24 tablet by [facility] thoprim 08:09: mouth 2 (BACTRIM 11 times DS) 800-160 daily. mg per tablet MULTIVITAMI 2019-0 Yes Take by [facility] ris N (DAILY 9-24 mouth. Health VITAMIN OR) 08:09: 11 sulfamethox 2019-0 Yes 1{tbl} Q.5D Take 1 [facility] rris azole-trime 9-24 tablet by [facility] thoprim 08:09: mouth 2 (BACTRIM 11 times DS) 800-160 daily. mg per tablet MULTIVITAMI 2019-0 Yes Take by Tom ris N (DAILY 9-24 mouth. Health VITAMIN OR) 08:09: 11 sulfamethox 2019-0 Yes 1{tbl} Q.5D Take 1 [facility] azole-trime 9-24 tablet by [facility] thoprim 08:09: mouth 2 (BACTRIM 11 times DS) 800-160 daily. mg per tablet MULTIVITAMI 2019-0 Yes Take by [facility] ris N (DAILY 9-24 mouth. Health VITAMIN OR) 08:09: 11 sulfamethox 2019-0 Yes 1{tbl} Q.5D Take 1 [facility] rris azole-trime 9-24 tablet by [facility] thoprim 08:09: mouth 2 (BACTRIM 11 times DS) 800-160 daily. mg per tablet MULTIVITAMI 2019-0 Yes Take by Tom ris N (DAILY 9-24 mouth. Health VITAMIN OR) 08:09: 11 sulfamethox 2019-0 Yes 1{tbl} Q.5D Take 1 [facility] azole-trime 9-24 tablet by [facility] thoprim 08:09: mouth 2 (BACTRIM 11 times DS) 800-160 daily. mg per tablet MULTIVITAMI 2019-0 Yes Take by [facility] N (DAILY 9-24 mouth. Health VITAMIN OR) 08:09: 11 sulfamethox 2019-0 Yes 1{tbl} Q.5D Take 1 [facility] azole-trime 9-24 tablet by [facility] thoprim 08:09: mouth 2 (BACTRIM 11 times DS) 800-160 daily. mg per tablet MULTIVITAMI 2019-0 Yes Take by Tom ris N (DAILY 9-24 mouth. Health VITAMIN OR) 08:09: 11 sulfamethox 2019-0 Yes 1{tbl} Q.5D Take 1 [facility] azole-trime 9-24 tablet by [facility] thoprim 08:09: mouth 2 (BACTRIM 11 times DS) 800-160 daily. mg per tablet MULTIVITAMI 2019-0 Yes Take by [facility] N (DAILY 9-24 mouth. Health VITAMIN OR) 08:09: 11 sulfamethox 2019-0 Yes 1{tbl} Q.5D Take 1 [facility] azole-trime 9-24 tablet by [facility] thoprim 08:09: mouth 2 (BACTRIM [...] 2 times mg/gram weekly. vaginal cream silver 2015-0 Yes Desquamated Apply Tom ris [...] FLUCELVAX QUAD 2021-02-[address] 00:00:00 [facility] FLUCELVAX QUAD 2021-02-[address] 00:00:00 [facility] FLUCELVAX QUAD 2021-02-[address] 00:00:00 [facility] FLUCELVAX QUAD 2021-02-[address] 00:00:00 [facility] FLUCELVAX QUAD 2021-02-[address] 00:[facility]:00 [facility] FLUCELVAX QUAD 2021-02-[address] 00:00:00 Hospital FLUCELVAX QUAD 2021-02-[address] 00:00:00 Hospital FLUCELVAX QUAD 2021-02-[address] 00:00:00 [facility] FLUCELVAX QUAD 2021-02-[address] 00:00:00 [facility] FLUCELVAX QUAD 2021-02-[address] 00:00:00 [facility] FLUCELVAX QUAD PF 2021-02-[address] 00:00:00 [facility] FLUCELVAX QUAD PF 2021-02-[address] 00:00:00 [facility] FLUCELVAX QUAD PF 2021-02-[address] 00:00:00 [facility] PFIZER COVID-19 MRNA 2020-08-05 Completed [facility] VACCINATION 00:00:00 [facility] PFIZER COVID-19 MRNA 2020-08-05 Completed [facility] VACCINATION 00:00:00 [facility] PFIZER COVID-19 MRNA 2020-08-05 Completed [facility] VACCINATION 00:00:00 [facility] [facility] PFIZER COVID-19 MRNA 2020-08-05 Completed [facility] VACCINATION 00:00:00 [facility] PFIZER COVID-19 MRNA 2020-08-05 Completed [facility] VACCINATION 00:00:00 [facility] PFIZER COVID-19 MRNA 2020-08-05 Completed [facility] VACCINATION 00:00:00 [facility] PFIZER COVID-19 MRNA 2020-08-05 Completed [facility] VACCINATION 00:00:00 [facility] PFIZER COVID-19 MRNA 2020-08-05 Completed [facility] VACCINATION 00:00:00 [facility] PFIZER COVID-19 MRNA 2020-08-05 Completed [facility] VACCINATION 00:00:00 [facility] PFIZER COVID-19 MRNA 2020-08-05 Completed [facility] VACCINATION 00:00:00 [facility] PFIZER COVID-19 MRNA 2020-08-05 Completed [facility] VACCINATION 00:00:00 [facility] PFIZER COVID-19 MRNA 2020-08-05 Completed [facility] VACCINATION 00:00:00 [facility] PFIZER COVID-19 MRNA 2020-08-05 Completed [facility] VACCINATION 00:00:00 [facility] PFIZER COVID-19 MRNA 2020-07-08 Completed [facility] VACCINATION 00:00:00 [facility] PFIZER COVID-19 MRNA 2020-07-08 Completed [facility] VACCINATION 00:00:00 [facility] PFIZER COVID-19 MRNA 2020-07-08 Completed [facility] VACCINATION 00:00:00 [facility] PFIZER COVID-19 MRNA 2020-07-08 Completed [facility] VACCINATION 00:00:00 [facility] PFIZER COVID-19 MRNA 2020-07-08 Completed [facility] VACCINATION 00:00:00 [facility] PFIZER COVID-19 MRNA 2020-07-08 Completed [facility] VACCINATION 00:00:00 [facility] PFIZER COVID-19 MRNA 2020-07-08 Completed [facility] VACCINATION 00:00:00 [facility] PFIZER COVID-19 MRNA 2020-07-08 Completed [facility] VACCINATION 00:00:00 [facility] PFIZER COVID-19 MRNA 2020-07-08 Completed [facility] VACCINATION 00:00:00 [facility] PFIZER COVID-19 MRNA 2020-07-08 Completed [facility] VACCINATION 00:00:00 [facility] PFIZER COVID-19 MRNA 2020-07-08 Completed [facility] VACCINATION 00:00:00 [facility] PFIZER COVID-19 MRNA 2020-07-08 Completed [facility] VACCINATION 00:00:00 [facility] PFIZER COVID-19 MRNA 2020-07-08 Completed [facility] VACCINATION 00:00:00 [facility] Influenza, 2020-03-12 Completed [facility] Vaccine<FLUCELVAX>(M 00:00:00 [...] 00:00:00 ulti-Dose) Tdap (Tetanus 2020-03-12 Completed [facility] th Toxoid, Reduced 00:00:00 Diphtheria Toxoid And Acellular Pertussis, Absorbed) Influenza, 2020-03-12 Completed [facility] Vaccine<FLUCELVAX>(M 00:00:00 ulti-Dose) Tdap (Tetanus 2020-03-12 Completed [facility] th Toxoid, Reduced 00:00:00 Diphtheria Toxoid And Acellular Pertussis, Absorbed) Influenza, 2020-03-12 Completed [facility] Vaccine<FLUCELVAX>(M 00:00:00 ulti-Dose) Tdap (Tetanus 2020-03-12 Completed [facility] th Toxoid, Reduced 00:00:00 Diphtheria Toxoid [...] Source Systolic blood 2022-02-20 01:13:29 129 mm[Hg] [facility] pressure Diastolic blood 2022-02-20 01:13:29 67 mm[Hg] [facility] pressure Heart rate 2022-02-20 01:13:29 60 /min [facility] Respiratory rate 2022-02-20 01:13:29 18 /min [facility] Oxygen saturation in 2022-02-20 01:13:29 96 /min [facility] Arterial blood by Pulse oximetry Body height 2022-02-19 20:30:00 162.6 cm [facility] Body weight 2022-02-19 20:30:00 79.379 kg [facility] BMI 2022-02-19 20:30:00 30.04 kg/m2 [facility] Body temperature 2022-02-19 20:29:09 36.61 Nydia [facility] pulse rate 2021-12-16 13:21:49 87 /min [facility], 2021-12-16 13:21:49 67 mm[Hg] Legac y [facility] diastolic Health blood pressure, 2021-12-16 13:21:49 132 mm[Hg] Legac [facility] systolic Health pulse rate 2020-11-25 14:31:56 70 /min [facility] blood pressure, 2020-11-25 14:31:56 74 mm[Hg] Legac y [facility] diastolic Health blood pressure, 2020-11-25 14:31:56 113 mm[Hg] Legac y [facility] systolic Health pulse rate 2020-11-25 13:39:38 70 [facility], 2020-11-25 13:39:38 74 mm[Hg] Legac y [facility] diastolic Health blood pressure, 2020-11-25 13:39:38 113 mm[Hg] [facility] Procedures Procedure Date / Time Performing Source Performed Clinician CT CHEST WO CONTRAST ABDOMEN WO 2022-02-20 Cristóbal Ovalle CONTRAST PELVIS WO CONTRAST 01:47:[address] [facility] ital ECG ED PRELIMINARY INTERPRETATION 2022-02-20 Cristóbal Ovalle 01:34:30 [facility] CBC WITH PLATELET AND DIFFERENTIAL 2022-02-19 Pa Manning 21:40:00 Hospital COMPREHENSIVE METABOLIC PANEL 2022-02-19 Alee Manning Pr [facility] 21:40:00 Hospital HCG QUALITATIVE, SERUM SCREEN [...] HEPATITIS C ANTIBODY 2022-02-05 Eddie Farris 15:30:00 [facility] HIV 1/2 ANTIGEN/ANTIBODY, FOURTH 2022-02-05 Eddie Farris GENERATION, WITH REFLEXES 15:30:00 Hospit al HSV TYPE 1/2 COMBINED AB, IGM 2022-02-05 Eddie Farris [facility] 15:30:00 Hospital RPR WITH REFLEX TO TITER 2022-02-[address] 15:30:00 Hospital HEPATITIS C VIRUS (HCV), 2022-02-[address] QUANTITATIVE PCR 15:30:00 [facility] HIV 1/2 ANTIGEN/ANTIBODY, FOURTH 2022-02-05 Eddie Farris GENERATION, WITH REFLEXES 15:30:00 Hospit al ZZHSV 1 AND 2 SPECIFIC AB IGG 2022-02-05 Eddie Farris [facility] 15:30:00 Hospital SURGICAL PATHOLOGY REQUEST 2021-12-26 Esthela Small [facility] 18:06:00 Hospital COLONOSCOPY 2021-12-26 Esthela Small [facility] 15:44:00 [facility] ESOPHAGOGASTRODUODENOSCOPY (EGD) 2021-12-26 Esthela Small [facility] 15:44:00 Hospital COVID-19 QUALITATIVE RT-PCR 2021-12-24 Esthela Small [facility]ist 12:41:00 [facility] THINPREP TIS AND HPV MRNA E6/E7 2021-12-18 Eddie Farris 18:34:00 [facility] ECG 12-LEAD 2021-11-28 Keith Carroll 15:26:34 [facility] TROPONIN T 2021-11-07 Zeyad Cohen 20:01:00 [facility] COVID-19 QUALITATIVE RT-PCR 2021-11-07 Zeyad Cohen odist 19:09:00 [facility] COVID-19 OMICRON VARIANT 2021-11-[address] QUALITATIVE RT-PCR 19:09:00 [facility] XR CHEST 2 VW 2021-11-07 Zeyad Cohen 18:51:38 [facility] ECG ED PRELIMINARY INTERPRETATION 2021-11-07 Karo Cohen 18:50:27 [facility] COMPREHENSIVE METABOLIC PANEL 2021-11-07 Zeyad Cohen thodist 18:03:00 [facility] TROPONIN T 2021-11-07 Zeyad Cohen 18:03:00 [facility] CBC WITH PLATELET AND DIFFERENTIAL 2021-11-07 Ed Cohen 18:03:00 [facility] HCG QUALITATIVE, SERUM SCREEN 2021-11-07 Zeyad Cohen thodist 18:03:00 [facility] ESTIMATED GFR 2021-11-07 Zeyad Cohen 18:03:00 [facility] ECG 12-LEAD 2021-11-07 OghogLiborio louie [facility] 17:57:16 Hospital FL UGI W OR WO KUB 2021-11-03 Esthela Smallist 15:16:30 [facility] HEPATITIS C VIRUS (HCV), 2021-11-03 Esthela Small odniki QUANTITATIVE PCR 13:52:00 Hospital HEPATIC FUNCTION PANEL 2021-11-03 Esthela Small Method ist 13:52:00 [facility] XR CHEST 2 VW 2021-10-15 José Rider 02:52:42 [facility] COMPREHENSIVE METABOLIC PANEL 2021-10-15 Mario Maher thodist 01:15:00 [facility] TROPONIN T 2021-10-15 Mario Maher 01:15:00 [facility] B NATRIURETIC PEPTIDE 2021-10-15 Mario Maher 01:15:00 [facility] CBC WITH PLATELET AND DIFFERENTIAL 2021-10-15 Marques Maher 01:15:00 [facility] PROTHROMBIN TIME WITH INR 2021-10-15 Mario Maher ist 01:15:00 [facility] PARTIAL THROMBOPLASTIN TIME (PTT) 2021-10-15 Mario Maher 01:15:00 [facility] ESTIMATED GFR 2021-10-15 Mario Maher 01:15:00 [facility] ECG 12-LEAD 2021-10-15 Mario Maher 00:33:[address] [facility] [address] ANGIOGRAM PE CHEST 2021-10-12 Trung Courtney 17:55:52 [facility] CBC WITH PLATELET AND DIFFERENTIAL 2021-10-12 Trung Courtney 15:36:00 Hospital COMPREHENSIVE METABOLIC PANEL 2021-10-12 Trung Courtney ethodi 15:36:00 Hospital TROPONIN T 2021-10-12 Trung Courtney 15:36:00 Hospital B NATRIURETIC PEPTIDE 2021-10-12 Trung Courtney 15:36:00 Hospital CREATINE KINASE, TOTAL (CPK) 2021-10-12 Trung Courtney thodist 15:36:00 Hospital ESTIMATED GFR 2021-10-12 Trung Courtney 15:36:00 Hospital ECG ED PRELIMINARY INTERPRETATION 2021-10-12 Trung Courtney 15:20:39 Hospital URINE CULTURE 2021-10-12 Rajinder Ordoñez 15:17:00 [facility] URINALYSIS SCREEN AND MICROSCOPY, 2021-10-12 Arslan Ordoñez WITH REFLEX TO CULTURE 15:17:00 [facility] HCG QUALITATIVE, URINE SCREEN 2021-10-12 Rajinder Ordoñez 15:17:00 [facility] ECG 12-LEAD 2021-10-12 Rajinder Ordoñez 14:48:50 [facility] NE AN ELECTIVE SUPRAGLOTTIC AIRWAY 2021-09-30 Ruddy Marie 12:10:00 Hospital DECOMPRESSION, ULNAR NERVE 2021-09-30 Rebecca Brownlee 12:06:00 [facility] COVID-19 QUALITATIVE RT-PCR 2021-09-26 Dulce Maria Pierre 14:23:00 [facility] PROTHROMBIN TIME WITH INR 2021-09-26 Antonio Pierret 14:23:00 [facility] PARTIAL THROMBOPLASTIN TIME (PTT) 2021-09-26 Keith Pierre 14:23:00 [facility] COMPREHENSIVE METABOLIC PANEL 2021-09-26 Me Gabby thodist 14:23:00 [facility] ESTIMATED GFR 2021-09-26 Rebecca Brownlee 14:23:00 [facility] HEMOGLOBIN A1C 2021-09-26 Rebecca Brownlee 14:23:00 [facility] CBC WITH PLATELET AND DIFFERENTIAL 2021-09-19 Lexie Esparza 07:10:00 Hospital THYROID STIMULATING HORMONE 2021-09-19 Peggy Esparza 07:10:00 Hospital CBC WITH PLATELET AND DIFFERENTIAL 2021-09-19 Lexie Esparza 07:10:00 Hospital XR ELBOW 3+ VW LEFT 2021-09-10 Rebecca Brownlee 15:28:27 [facility] CT ANGIOGRAM NECK W WO CONTRAST 2021-08-27 Brenda Retana 00:01:[address] [facility] [address] ANGIOGRAM HEAD W WO CONTRAST 2021-08-27 Brenda Retana 00:00:[address] [facility] [address] HEAD WO CONTRAST 2021-08-26 Brenda Retana 23:42:36 [facility] ECG ED PRELIMINARY INTERPRETATION 2021-08-26 Brenda Retana 23:22:45 [facility] CBC WITH PLATELET AND DIFFERENTIAL 2021-08-26 Willie Retana 21:57:00 [facility] COMPREHENSIVE METABOLIC PANEL 2021-08-26 Brenda Retana thodist 21:57:00 [facility] TROPONIN T 2021-08-26 Brenda Retana 21:57:00 [facility] B NATRIURETIC PEPTIDE 2021-08-26 Brenda Retana 21:57:00 [facility] HCG QUALITATIVE, SERUM SCREEN 2021-08-26 Mazin, Brenda [facility] 21:57:00 [facility] ESTIMATED GFR 2021-08-26 Brenda Retana [facility] 21:57:00 [facility] ECG 12-LEAD 2021-08-26 Brenda Retana [facility] 21:42:16 [facility] URINE CULTURE 2021-08-06 Myles Martin [facility] 22:27:00 Hospital URINALYSIS SCREEN AND MICROSCOPY, 2021-08-06 Myles Martin Siist WITH REFLEX TO CULTURE 22:27:00 Hospital XR CHEST 2 VW 2021-08-06 Myles Martin [facility] 20:36:00 Hospital INFLUENZA ANTIGEN 2021-08-06 Susie Melton [facility] 20:10:00 [facility] RESPIRATORY PATHOGEN PANEL WITH 2021-08-06 Susie Melton COVID-19 RT-PCR 20:10:00 [facility] ECG ED PRELIMINARY INTERPRETATION 2021-08-06 Myles Martin Si [facility] 20:08:02 [facility] COMPREHENSIVE METABOLIC PANEL 2021-08-06 Susie Melton [facility] 20:05:00 [facility] CBC WITH PLATELET AND DIFFERENTIAL 2021-08-06 Montserrat Melton [facility] 20:05:00 [facility] TROPONIN T 2021-08-06 Susie Melton 20:05:00 [facility] LIPASE LEVEL 2021-08-06 Susie Melton [facility] 20:05:00 [facility] ESTIMATED GFR 2021-08-06 Susie Melton [facility] 20:05:00 [facility] ECG 12-LEAD 2021-08-06 Susie Melton [facility] 19:55:29 [facility] TROPONIN T 2021-08-01 Brenda Retana [facility] 03:32:00 [facility] ECG ED PRELIMINARY INTERPRETATION 2021-08-01 Nelson Villagran i [facility] 02:37:45 [facility] CBC WITH PLATELET AND DIFFERENTIAL 2021-08-01 Willie Retana [facility] 00:35:00 [facility] COMPREHENSIVE METABOLIC PANEL 2021-08-01 Brenda Retana [facility] 00:35:00 [facility] TROPONIN T 2021-08-01 Brenda Retana 00:35:00 [facility] B NATRIURETIC PEPTIDE 2021-08-01 Brenda Retana 00:35:00 [facility] ESTIMATED GFR 2021-08-01 Brenda Retana 00:35:00 [facility] ECG 12-LEAD 2021-08-01 Brenda Retana 00:23:19 [facility] TROPONIN T 2021-07-30 Jaida Sales 21:35:00 [...] MAMMO BREAST SCREEN TOMOSYNTHESIS 2021-07-28 Shell Vargas [facility] BILATERAL 14:20:00 [facility] ECG ED PRELIMINARY INTERPRETATION 2021-07-01 Nelson Villagran iist 00:04:28 Hospital TROPONIN T 2021-06-30 Mario Maher 23:09:00 [facility] RESPIRATORY PATHOGEN PANEL WITH 2021-06-30 Mario Maher COVID-19 RT-PCR 21:09:00 [facility] XR CHEST 2 VW 2021-06-30 Mario Maher 20:40:51 [facility] COMPREHENSIVE METABOLIC PANEL 2021-06-30 Mario Maher Pr thodist 20:06:00 [facility] TROPONIN T 2021-06-30 Mario Maher 20:06:00 [facility] B NATRIURETIC PEPTIDE 2021-06-30 Mario Maher 20:06:00 [facility] CBC WITH PLATELET AND DIFFERENTIAL 2021-06-30 Marques Maher 20:06:00 [facility] ESTIMATED GFR 2021-06-30 Mario Maher 20:06:00 [facility] ECG 12-LEAD 2021-06-30 Mario Maher 19:54:19 [facility] POC URINALYSIS DIPSTICK 2021-06-16 Eddie Farris [facility] t 18:20:00 Hospital THINPREP TIS PAP AND HPV MRNA 2021-06-16 Eddie Farris [facility] E6/E7 REFLEX HPV 16,18/45 18:17:00 Hospit al URINALYSIS, COMPLETE, WITH REFLEX 2021-06-16 Eddie Farrisist TO CULTURE 17:55:00 Hospital XR SHOULDER 2+ VW RIGHT 2021-06-02 Roger Ling t 17:52:26 [facility] MRI LUMBAR SPINE WO CONTRAST 2021-05-09 Shell Vargas Met [facility]ist 18:44:08 [facility] MRI CERVICAL SPINE WO CONTRAST 2021-05-05 Shell Vargas ethodist 14:11:[address] [facility] [address] LUMBAR SPINE WO CONTRAST [...] Hospital URINE CULTURE 2021-04-12 Shine Lui 21:52:00 [facility] URINALYSIS SCREEN AND MICROSCOPY, 2021-04-12 Shine Lui WITH REFLEX TO CULTURE 21:52:00 Hospital ECG ED PRELIMINARY INTERPRETATION 2021-04-12 Shine Lui 21:47:56 [facility] Plan of Care Planned Activity Planned Date Details Comments Source Future Scheduled 2024-09-11 [facility]:00 malignant neoplasm of cervix (procedure) [code = 176695369] Future Scheduled 2024-09-11 [facility] 00:00:00 malignant neoplasm of cervix (procedure) [code = 636838943] Future Scheduled 2024-09-11 [facility] 00:00:00 malignant neoplasm of cervix (procedure) [code = 459245221] Future Scheduled 2024-09-11 [facility] 00:00:00 malignant neoplasm of cervix (procedure) [code = 922516830] Future Scheduled 2024-09-11 [facility] 00:00:00 malignant neoplasm of cervix (procedure) [code = 519116570] Future Scheduled 2024-09-11 [facility] 00:00:00 malignant neoplasm of cervix (procedure) [code = 715684628] Future Scheduled 2024-09-11 [facility] 00:00:00 malignant neoplasm of cervix (procedure) [code = 380509306] Future Scheduled 2024-09-11 [facility] 00:00:00 malignant neoplasm of cervix (procedure) [code = 430214966] Future Scheduled 2024-09-11 [facility] 00:00:00 malignant neoplasm of cervix (procedure) [code = 014010440] Future Scheduled 2024-09-11 [facility] 00:00:00 malignant neoplasm of cervix (procedure) [code = 929784038] Future Scheduled 2024-09-11 [facility] 00:00:00 malignant neoplasm of cervix (procedure) [code = 685703658] Future Scheduled 2024-09-11 [facility] 00:00:00 malignant neoplasm of cervix (procedure) [code = 761027428] Future Scheduled 2024-09-11 [facility] 00:00:00 malignant neoplasm of cervix (procedure) [code = 437360161] Future Scheduled 2024-09-11 [facility] 00:00:00 malignant neoplasm of cervix (procedure) [code = 387742937] Future Scheduled 2024-09-11 [facility] 00:00:00 malignant neoplasm of cervix (procedure) [code = 439030400] Future Scheduled 2024-09-11 [facility] 00:00:00 malignant neoplasm of cervix (procedure) [code = 797273807] Future Scheduled 2024-09-11 [facility] 00:00:00 malignant neoplasm of cervix (procedure) [code = 524228631] Future Scheduled 2024-09-11 [facility] 00:00:00 malignant neoplasm of cervix (procedure) [code = 746273644] Future Scheduled 2024-09-11 [facility] 00:00:00 malignant neoplasm of cervix (procedure) [code = 855629404] Future Scheduled 2024-09-11 [facility] 00:00:00 malignant neoplasm of cervix (procedure) [code = 642364935] Future Scheduled 2024-09-11 [facility] 00:00:00 malignant neoplasm of cervix (procedure) [code = 092462285] Future Scheduled 2024-09-11 [facility] 00:00:00 malignant neoplasm of cervix (procedure) [code = 902412212] Future Scheduled 2024-09-11 [facility] 00:00:00 malignant neoplasm of cervix (procedure) [code = 765290460] Future Scheduled 2024-09-11 [facility] 00:00:00 malignant neoplasm of cervix (procedure) [code = 429441926] Future Scheduled 2024-09-11 [facility] 00:00:00 malignant neoplasm of cervix (procedure) [code = 287575380] Future Scheduled 2024-09-11 Screening for [facility] Test 00:00:00 malignant neoplasm of cervix (procedure) [code = 596272813] Future Scheduled 2023-01-10 IMM Influenza Seasonal H [...] Influenza Seasonal (>/= 19 yrs)] Future Scheduled 2022-11-23 HEPATITIS B VACCINES [facility] Test 15:50:17 (1 of 3 - 3-dose series) [code = HEPATITIS B VACCINES (1 of 3 - 3-dose series)] Future Scheduled 2022-11-23 Pneumococcal Vaccine: [facility] Test 15:50:17 Pediatrics (0 to 5 Years) and At-Risk Patients (6 to 64 Years) (1 - PCV) [code = Pneumococcal Vaccine: Pediatrics (0 to 5 Years) and At-Risk Patients (6 to 64 Years) (1 - PCV)] Future Scheduled 2022-11-23 SHINGLES VACCINES (1 [facility] Test 15:50:17 of 2) [code = SHINGLES VACCINES (1 of 2)] Future Scheduled 2022-11-23 COVID-19 VACCINE (3 - [facility] Test 15:50:17 Pfizer series) [code = COVID-19 VACCINE (3 - Pfizer series)] Future Scheduled 2022-11-23 BREAST CANCER [facility] Test 15:50:17 SCREENING [code = BREAST CANCER SCREENING] Future Scheduled 2022-11-23 Z[facility]FLU[facility]ZA [facility]ACC[facility] 15:50:17 [code = ZZZ INFLUENZA VACCINE] Future Scheduled 2022-11-23 Screening for [facility] Test 15:50:17 malignant neoplasm of cervix (procedure) [code = 779768592] Future Scheduled 2022-11-16 HEPATITIS B VACCINES [facility] Test 15:11:20 (1 of 3 - 3-dose series) [code = HEPATITIS B VACCINES (1 of 3 - 3-dose series)] Future Scheduled 2022-11-16 Pneumococcal Vaccine: [facility] Test 15:11:20 Pediatrics (0 to 5 Years) and At-Risk Patients (6 to 64 Years) (1 - PCV) [code = Pneumococcal Vaccine: Pediatrics (0 to 5 Years) and At-Risk Patients (6 to 64 Years) (1 - PCV)] Future Scheduled 2022-11-16 SHINGLES VACCINES (1 [facility] Test 15:11:20 of 2) [code = SHINGLES VACCINES (1 of 2)] Future Scheduled 2022-11-16 COVID-19 VACCINE (3 - [facility] Test 15:11:20 Pfizer series) [code = COVID-19 VACCINE (3 - Pfizer series)] Future Scheduled 2022-11-16 BREAST CANCER [facility] Test 15:11:20 SCREENING [code = BREAST CANCER SCREENING] Future Scheduled 2022-11-16 INFLUENZA VACCINE [facility] Test 15:11:20 [code = INFLUENZA VACCINE] Future Scheduled 2022-11-16 Screening for [facility] Test 15:11:20 malignant neoplasm of cervix (procedure) [code = 110121718] Future Scheduled 2022-10-02 HEPATITIS B VACCINES [facility] Test 12:32:01 (1 of 3 - 3-dose series) [code = HEPATITIS B VACCINES (1 of 3 - 3-dose series)] Future Scheduled 2022-10-02 Pneumococcal Vaccine: [facility] Test 12:32:01 Pediatrics (0 to 5 Years) and At-Risk Patients (6 to 64 Years) (1 - PCV) [code = Pneumococcal Vaccine: Pediatrics (0 to 5 Years) and At-Risk Patients (6 to 64 Years) (1 - PCV)] Future Scheduled 2022-10-02 SHINGLES VACCINES (1 [facility] Test 12:32:01 of 2) [code = SHINGLES VACCINES (1 of 2)] Future Scheduled 2022-10-02 COVID-19 VACCINE (3 - [facility] Test 12:32:01 Pfizer series) [code = COVID-19 VACCINE (3 - Pfizer series)] Future Scheduled 2022-10-02 BREAST CANCER [facility] Test 12:32:01 SCREENING [code = BREAST CANCER SCREENING] Future Scheduled 2022-10-02 INFLUENZA VACCINE [facility] Test 12:32:01 [code = INFLUENZA VACCINE] Future Scheduled 2022-10-02 Screening for [facility] Test 12:32:01 malignant neoplasm of cervix (procedure) [code = 267818826] Future Scheduled 2022-09-11 HEPATITIS B VACCINES [facility] Test 08:52:14 (1 of 3 - 3-dose series) [code = HEPATITIS B VACCINES (1 of 3 - 3-dose series)] Future Scheduled 2022-09-11 Pneumococcal Vaccine: [facility] Test 08:52:14 Pediatrics (0 to 5 Years) and At-Risk Patients (6 to 64 Years) (1 - PCV) [code = Pneumococcal Vaccine: Pediatrics (0 to 5 Years) and At-Risk Patients (6 to 64 Years) (1 - PCV)] Future Scheduled 2022-09-11 COLONOSCOPY SCREENING [facility] Test 08:52:14 [code = COLONOSCOPY SCREENING] Future Scheduled 2022-09-11 SHINGLES VACCINES (1 [facility] Test 08:52:14 of 2) [code = SHINGLES VACCINES (1 of 2)] Future Scheduled 2022-09-11 COVID-19 VACCINE (3 - [facility] Test 08:52:14 Booster for Pfizer series) [code = COVID-19 VACCINE (3 - Booster for Pfizer series)] Future Scheduled 2022-09-11 BREAST CANCER [facility] Test 08:52:14 SCREENING [code = BREAST CANCER SCREENING] Future Scheduled 2022-09-11 INFLUENZA VACCINE [facility] Test 08:52:14 [code = INFLUENZA VACCINE] Future Scheduled 2022-09-11 Screening for [facility] Test 08:52:14 malignant neoplasm of cervix (procedure) [code = 764120881] Future Scheduled 2022-08-06 HEPATITIS B VACCINES [facility] Test 21:07:15 (1 of 3 - 3-dose series) [code = HEPATITIS B VACCINES (1 of 3 - 3-dose series)] Future Scheduled 2022-08-06 Pneumococcal Vaccine: [facility] Test 21:07:15 Pediatrics (0 to 5 Years) and At-Risk Patients (6 to 64 Years) (1 - PCV) [code = Pneumococcal Vaccine: Pediatrics (0 to 5 Years) and At-Risk Patients (6 to 64 Years) (1 - PCV)] Future Scheduled 2022-08-06 COLONOSCOPY SCREENING [facility] Test 21:07:15 [code = COLONOSCOPY SCREENING] Future Scheduled 2022-08-06 SHINGLES VACCINES (1 [facility] Test 21:07:15 of 2) [code = SHINGLES VACCINES (1 of 2)] Future Scheduled 2022-08-06 COVID-19 VACCINE (3 - [facility] Test 21:07:15 Booster for Pfizer series) [code = COVID-19 VACCINE (3 - Booster for Pfizer series)] Future Scheduled 2022-08-06 BREAST CANCER [facility] Test 21:07:15 SCREENING [code = BREAST CANCER SCREENING] Future Scheduled 2022-08-06 INFLUENZA VACCINE [facility] Test 21:07:15 [code = INFLUENZA VACCINE] Future Scheduled 2022-08-06 Screening for [facility] Test 21:07:15 malignant neoplasm of cervix (procedure) [code = 903157985] Future Scheduled 2022-06-22 HEPATITIS B VACCINES [facility] Test 14:13:36 (1 of 3 - 3-dose series) [code = HEPATITIS B VACCINES (1 of 3 - 3-dose series)] Future Scheduled 2022-06-22 Pneumococcal Vaccine: [facility] Test 14:13:36 Pediatrics (0 to 5 Years) and At-Risk Patients (6 to 64 Years) (1 - PCV) [code = Pneumococcal Vaccine: Pediatrics (0 to 5 Years) and At-Risk Patients (6 to 64 Years) (1 - PCV)] Future Scheduled 2022-06-22 COLONOSCOPY SCREENING [facility] Test 14:13:36 [code = COLONOSCOPY SCREENING] Future Scheduled 2022-06-22 SHINGLES VACCINES (1 [facility] Test 14:13:36 of 2) [code = SHINGLES VACCINES (1 of 2)] Future Scheduled 2022-06-22 COVID-19 VACCINE (3 - [facility] Test 14:13:36 Booster for Pfizer series) [code = COVID-19 VACCINE (3 - Booster for Pfizer series)] Future Scheduled 2022-06-22 INFLUENZA VACCINE [facility] Test 14:13:36 [code = INFLUENZA VACCINE] Future Scheduled 2022-06-22 BREAST CANCER [facility] Test 14:13:36 SCREENING [code = BREAST CANCER SCREENING] Future Scheduled 2022-06-22 Screening for [facility] Test 14:13:36 malignant neoplasm of cervix (procedure) [code = 048351019] Future Scheduled 2022 HEPATITIS B VACCINES [facility] Test 13:45:15 (1 of 3 - 3-dose series) [code = HEPATITIS B VACCINES (1 of 3 - 3-dose series)] Future Scheduled 2022 Pneumococcal Vaccine: [facility] Test 13:45:15 Pediatrics (0 to 5 Years) and At-Risk Patients (6 to 64 Years) (1 - PCV) [code = Pneumococcal Vaccine: Pediatrics (0 to 5 Years) and At-Risk Patients (6 to 64 Years) (1 - PCV)] Future Scheduled 2022 COLONOSCOPY SCREENING [facility] Test 13:45:15 [code = COLONOSCOPY SCREENING] Future Scheduled 2022 SHINGLES VACCINES (1 [facility] Test 13:45:15 of 2) [code = SHINGLES VACCINES (1 of 2)] Future Scheduled 2022 COVID-19 VACCINE (3 - [facility] Test 13:45:15 Booster for Pfizer series) [code = COVID-19 VACCINE (3 - Booster for Pfizer series)] Future Scheduled 2022 INFLUENZA VACCINE [facility] Test 13:45:15 [code = INFLUENZA VACCINE] Future Scheduled 2022 BREAST CANCER [facility] Test 13:45:15 SCREENING [code = BREAST CANCER SCREENING] Future Scheduled 2022 Screening for [facility] Test 13:45:15 malignant neoplasm of cervix (procedure) [code = [id number]] Future Scheduled 2022-04-17 HEPATITIS B VACCINES [facility] Test 10:21:02 (1 of 3 - 3-dose series) [code = HEPATITIS B VACCINES (1 of 3 - 3-dose series)] Future Scheduled 2022-04-17 Pneumococcal Vaccine: [facility] Test 10:21:02 Pediatrics (0 to 5 Years) and At-Risk Patients (6 to 64 Years) (1 - PCV) [code = Pneumococcal Vaccine: Pediatrics (0 to 5 Years) and At-Risk Patients (6 to 64 Years) (1 - PCV)] Future Scheduled 2022-04-17 COLONOSCOPY SCREENING [facility] Test 10:21:02 [code = COLONOSCOPY SCREENING] Future Scheduled 2022-04-17 SHINGLES VACCINES (1 [facility] Test 10:21:02 of 2) [code = SHINGLES VACCINES (1 of 2)] Future Scheduled 2022-04-17 COVID-19 VACCINE (3 - [facility] Test 10:21:02 Booster for Pfizer series) [code = COVID-19 VACCINE (3 - Booster for Pfizer series)] Future Scheduled 2022-04-17 INFLUENZA VACCINE [facility] Test 10:21:02 [code = INFLUENZA VACCINE] Future Scheduled 2022-04-17 BREAST CANCER [facility] Test 10:21:02 SCREENING [code = BREAST CANCER SCREENING] Future Scheduled 2022-04-17 Screening for [facility] Test 10:21:02 malignant neoplasm of cervix (procedure) [code = [id number]] Future Scheduled 2022-04-15 HEPATITIS B VACCINES [facility] Test 14:24:02 (1 of 3 - 3-dose series) [code = HEPATITIS B VACCINES (1 of 3 - 3-dose series)] Future Scheduled 2022-04-15 Pneumococcal Vaccine: [facility] Test 14:24:02 Pediatrics (0 to 5 Years) and At-Risk Patients (6 to 64 Years) (1 - PCV) [code = Pneumococcal Vaccine: Pediatrics (0 to 5 Years) and At-Risk Patients (6 to 64 Years) (1 - PCV)] Future Scheduled 2022-04-15 COLONOSCOPY SCREENING [facility] Test 14:24:02 [code = COLONOSCOPY SCREENING] Future Scheduled 2022-04-15 SHINGLES VACCINES (1 [facility] Test 14:24:02 of 2) [code = SHINGLES VACCINES (1 of 2)] Future Scheduled 2022-04-15 COVID-19 VACCINE (3 - [facility] Test 14:24:02 Booster for Pfizer series) [code = COVID-19 VACCINE (3 - Booster for Pfizer series)] Future Scheduled 2022-04-15 INFLUENZA VACCINE [facility] Test 14:24:02 [code = INFLUENZA VACCINE] Future Scheduled 2022-04-15 BREAST CANCER [facility] Test 14:24:02 SCREENING [code = BREAST CANCER SCREENING] Future Scheduled 2022-04-15 Screening for [facility] Test 14:24:02 malignant neoplasm of cervix (procedure) [code = 051242362] Future Scheduled 2022-04-03 HEPATITIS B VACCINES [facility] Test 09:31:00 (1 of 3 - 3-dose series) [code = HEPATITIS B VACCINES (1 of 3 - 3-dose series)] Future Scheduled 2022-04-03 Pneumococcal Vaccine: [facility] Test 09:31:00 Pediatrics (0 to 5 Years) and At-Risk Patients (6 to 64 Years) (1 - PCV) [code = Pneumococcal Vaccine: Pediatrics (0 to 5 Years) and At-Risk Patients (6 to 64 Years) (1 - PCV)] Future Scheduled 2022-04-03 COLONOSCOPY SCREENING [facility] Test 09:31:00 [code = COLONOSCOPY SCREENING] Future Scheduled 2022-04-03 SHINGLES VACCINES (1 [facility] Test 09:31:00 of 2) [code = SHINGLES VACCINES (1 of 2)] Future Scheduled 2022-04-03 COVID-19 VACCINE (3 - [facility] Test 09:31:00 Booster for Pfizer series) [code = COVID-19 VACCINE (3 - Booster for Pfizer series)] Future Scheduled 2022-04-03 INFLUENZA VACCINE [facility] Test 09:31:00 [code = INFLUENZA VACCINE] Future Scheduled 2022-04-03 BREAST CANCER [facility] Test 09:31:00 SCREENING [code = BREAST CANCER SCREENING] Future Scheduled 2022-04-03 Screening for [facility] Test 09:31:00 malignant neoplasm of cervix (procedure) [code = 486539602] Future Scheduled 2022-03-05 HEPATITIS B VACCINES [facility] Test 00:08:56 (1 of 3 - 3-dose series) [code = HEPATITIS B VACCINES (1 of 3 - 3-dose series)] Future Scheduled 2022-03-05 Pneumococcal Vaccine: [facility] Test 00:08:56 Pediatrics (0 to 5 Years) and At-Risk Patients (6 to 64 Years) (1 - PCV) [code = Pneumococcal Vaccine: Pediatrics (0 to 5 Years) and At-Risk Patients (6 to 64 Years) (1 - PCV)] Future Scheduled 2022-03-05 COLONOSCOPY SCREENING [facility] Test 00:08:56 [code = COLONOSCOPY SCREENING] Future Scheduled 2022-03-05 SHINGLES VACCINES (1 [facility] Test 00:08:56 of 2) [code = SHINGLES VACCINES (1 of 2)] Future Scheduled 2022-03-05 COVID-19 VACCINE (3 - [facility] Test 00:08:56 Booster for Pfizer series) [code = COVID-19 VACCINE (3 - Booster for Pfizer series)] Future Scheduled 2022-03-05 INFLUENZA VACCINE [facility] Test 00:08:56 [code = INFLUENZA VACCINE] Future Scheduled 2022-03-05 BREAST CANCER [facility] Test 00:08:56 SCREENING [code = BREAST CANCER SCREENING] Future Scheduled 2022-03-05 Screening for [facility] Test 00:08:56 malignant neoplasm of cervix (procedure) [code = 821644532] Future Scheduled 2022-03-05 HEPATITIS B VACCINES [facility] Test 00:08:56 (1 of 3 - 3-dose series) [code = HEPATITIS B VACCINES (1 of 3 - 3-dose series)] Future Scheduled 2022-03-05 Pneumococcal Vaccine: [facility] Test 00:08:56 Pediatrics (0 to 5 Years) and At-Risk Patients (6 to 64 Years) (1 - PCV) [code = Pneumococcal Vaccine: Pediatrics (0 to 5 Years) and At-Risk Patients (6 to 64 Years) (1 - PCV)] Future Scheduled 2022-03-05 COLONOSCOPY SCREENING [facility] Test 00:08:56 [code = COLONOSCOPY SCREENING] Future Scheduled 2022-03-05 SHINGLES VACCINES (1 [facility] Test 00:08:56 of 2) [code = SHINGLES VACCINES (1 of 2)] Future Scheduled 2022-03-05 COVID-19 VACCINE (3 - [facility] Test 00:08:56 Booster for Pfizer series) [code = COVID-19 VACCINE (3 - Booster for Pfizer series)] Future Scheduled 2022-03-05 INFLUENZA VACCINE [facility] Test 00:08:56 [code = INFLUENZA VACCINE] Future Scheduled 2022-03-05 BREAST CANCER [facility] Test 00:08:56 SCREENING [code = BREAST CANCER SCREENING] Future Scheduled 2022-03-05 Screening for [facility] Test 00:08:56 malignant neoplasm of cervix (procedure) [code = 369605943] Future Scheduled 2022-02-22 HEPATITIS B VACCINES [facility] Test 22:17:15 (1 of 3 - 3-dose series) [code = HEPATITIS B VACCINES (1 of 3 - 3-dose series)] Future Scheduled 2022-02-22 Pneumococcal Vaccine: [facility] Test 22:17:15 Pediatrics (0 to 5 Years) and At-Risk Patients (6 to 64 Years) (1 - PCV) [code = Pneumococcal Vaccine: Pediatrics (0 to 5 Years) and At-Risk Patients (6 to 64 Years) (1 - PCV)] Future Scheduled 2022-02-22 COLONOSCOPY SCREENING [facility] Test 22:17:15 [code = COLONOSCOPY SCREENING] Future Scheduled 2022-02-22 SHINGLES VACCINES (1 [facility] Test 22:17:15 of 2) [code = SHINGLES VACCINES (1 of 2)] Future Scheduled 2022-02-22 COVID-19 VACCINE (3 - [facility] Test 22:17:15 Booster for Pfizer series) [code = COVID-19 VACCINE (3 - Booster for Pfizer series)] Future Scheduled 2022-02-22 INFLUENZA VACCINE Method [facility] Test 22:17:15 [code = INFLUENZA VACCINE] Future Scheduled 2022-02-22 BREAST CANCER [facility] Test 22:17:15 SCREENING [code = BREAST CANCER SCREENING] Future Scheduled 2022-02-22 Screening for [facility] Test 22:17:15 malignant neoplasm of cervix (procedure) [code = 733612658] Future Scheduled 2022-01-10 IMM Influenza Seasonal H [...] malignant neoplasm of colon (procedure) [code = 435333004] Future Scheduled 2019 [facility] for [facility] 00:00:00 malignant neoplasm of colon (procedure) [code = 746728552] Future Scheduled 2019 Screening for [facility] Test 00:00:00 malignant neoplasm of colon (procedure) [code = 160869607] Future Scheduled 2019 Screening for [facility] Test 00:00:00 malignant neoplasm of colon (procedure) [code = 696593152] Future Scheduled 2019 Screening for [facility] Test 00:00:00 malignant neoplasm of colon (procedure) [code = 237040827] Future Scheduled 2019 Screening for [facility] Test 00:00:00 malignant neoplasm of colon (procedure) [code = 916243842] Future Scheduled 2019 Screening for [facility] Test 00:00:00 malignant neoplasm of colon (procedure) [code = 349887838] Future Scheduled 2019 Screening for [facility] Test 00:00:00 malignant neoplasm of colon (procedure) [code = 910662411] Future Scheduled 2019 Screening for [facility] Test 00:00:00 malignant neoplasm of colon (procedure) [code = 418882999] Future Scheduled 2019 Screening for [facility] Test 00:00:00 malignant neoplasm of colon (procedure) [code = 052368466] Future Scheduled 2019 Screening for [facility] Test 00:00:00 malignant neoplasm of colon (procedure) [code = 588022624] Future Scheduled 2019 Screening for [facility] Test 00:00:00 malignant neoplasm of colon (procedure) [code = 834831909] Future Scheduled 2019 Screening for [facility] Test 00:00:00 malignant neoplasm of colon (procedure) [code = 058421830] Future Scheduled 1975 Imm Pneumococcal 0-64 Maria [...] Type Clinicians Facility Department ID 2022-11-16 Outpatient .nyarp [facility] [id number] [facility] 05:03:14 [id number] Critical access hospital 2022-04-23 Outpatient [facility] [id number] [place] 15:11:[id number] [place] [address] 2022-11-17 2022-11-17 Outpatient SFA SFA - Vadim 09:30:40 09:30:40 [id number] [facility] 2022-11-06 2022-11-06 Outpatient SFA SFA [id number] [place] 08:17:59 08:17:[id number] 2022-09-14 2022-09-14 Outpatient SFA SFA [facility]im 14:26:13 14:26:13 [id number] [facility] 2022-09-10 2022-09-10 Orders Fabby, 1.2.840.1 [id number] Methodi 00:00:00 00:00:00 Only [place] [address]45.1.[address] [place] 3.430.2.7 Hospit a .3.586879 l .8 2022-09-10 2022-09-10 Telephone Pena, 1.2.840.1 [id number] 2100 [id number] Methodi 00:00:00 00:00:[address] 3.430.2.7 Hospit a .3.564675 l .8 2022-09-10 2022-09-10 Orders Fabby, 1.2.840.1 [id number] 6748 Methodi 00:00:00 00:00:00 Only [place] [address]106.1.[address] [place] 3.430.2.7 Hospit a .3.422718 l .8 2022-09-10 2022-09-10 Telephone Jean, 1.2.840.1 [id number] 2099 [id number] Methodi 00:00:00 00:00:[address] 3.430.2.7 Hospit a .3.958052 l .8 2022-05-15 2022-05-15 Outpatient KELLI ALDANA [id number] Kelli 00:00:00 00:00:00 SHINE lorteo ren 2022-02-19 2022-02-19 Emergency Vasquez, 1.2.840.1 [id number] 2099 [id number] Methodi 18:09:00 20:16:[address] [place] 3.430.2.7 Hosp shai .3.495807 l .8 2022-02-19 2022-02-19 Emergency Vasquez, 1.2.840.1 [id number] 2099 [id number] Methodi 18:09:00 20:16:[address] [place] 3.430.2.7 Hosp shai .3.361365 l .8 2022-02-12 2022-02-12 Orders Lopez, 1.2.840.1 [id number] 93686 86697 Methodi 00:00:00 00:00:00 Only Maureen 57321.1.[address] 3.430.2.7 Hospit a .3.235802 l .8 2022-02-12 2022-02-12 Orders Lopez, 1.2.840.1 [id number] 07062 Methodi 00:00:00 00:00:00 Only Maureen 75579.1.[address] 3.430.2.7 Hospit a .3.400627 l .8 2022-02-11 2022-02-11 Orders Lopez, 1.2.840.1 [id number] Methodi 00:00:00 00:00:00 Only Maureen 77041.1.[address] 3.430.2.7 Hospit a .3.432643 l .8 2022-02-11 2022-02-11 Telephone Prasanth, 1.2.840.1 [id number] 2099 [id number] Methodi 00:00:00 00:00:00 Eddie Franco [address]53.1.[address] 3.430.2.7 Hospit a .3.658368 l .8 2022-02-11 2022-02-11 Jaclyn Lopez, 1.2.840.1 [id number] 01045 87152 Methodi 00:00:00 00:00:00 Only Maureen 52990.1.[address] 3.430.2.7 Hospit a .3.923063 l .8 2022-02-11 2022-02-11 Telephone Prasanth, 1.2.840.1 [id number] 2099 [id number] Methodi 00:00:00 00:00:00 Eddie Franco 62893.1.[address] 3.430.2.7 Hospit a .3.267933 l .8 2022-02-09 2022-02-09 Outpatient COH COH PDPFCCG ETQ COH 00:00:00 00:00:00 [id number] 2022-02-09 2022-02-09 Lamberto Farris, 1.2.840.1 [id number] 2099 [id number] Methodi 00:00:00 00:00:00 Eddie Franco 60648.1.[address] 3.430.2.7 Hospit a .3.293408 l .8 2022-02-09 2022-02-09 Lamberto Farris, 1.2.840.1 [id number] 2099 [id number] Methodi 00:00:00 00:00:00 Eddie Franco [address]168.1.[address] 3.430.2.7 Hospit a .3.378309 l .8 2022-02-05 2022-02-05 Mak Farris, 1.2.840.1 [id number] 3790 Methodi 10:50:00 10:55:00 Eddie Franco 23911.1.[address] 3.430.2.7 Hospit a .3.497857 l .8 2022-02-05 2022-02-05 Lab Prasanth, 1.2.840.1 [id number] 1148 Methodi 10:50:00 10:55:00 Eddie Franco 92251.1.[address] 3.430.2.7 Hospit a .3.524073 l .8 2022-02-05 2022-02-05 Office Prasanth, 1.2.840.1 [id number] 0821 Methodi 09:40:00 10:31:06 Visit Eddie Franco 32473.1.[address] 3.430.2.7 Hospit a .3.400510 l .8 2022-02-05 2022-02-05 Office Prasanth, 1.2.840.1 [id number] 2861 Methodi 09:40:00 10:31:06 Visit Eddie Franco 70680.1.[address] 3.430.2.7 Hospit a .3.274393 l .8 2022-02-05 2022-02-05 Refill Istre, 1.2.840.1 [id number] 0189 Methodi 00:00:00 00:00:[address] [place]de 3.430.2.7 Hospi ta .3.231899 l .8 2022-02-05 2022-02-05 Travel 1.2.840.1 1.2.368.092 7022 [id number] Methodi 00:00:00 00:00:[address] 3.430.2.7 0.2.7.3.698 Ho spita .3.699781 084.8 l .8 2022-02-05 2022-02-05 Refill Istre, 1.2.840.1 [id number] 9151 Methodi 00:00:00 00:00:[address] [place] 3.430.2.7 Hospi ta .3.698336 l .8 2022-02-05 2022-02-05 Travel 1.2.840.1 1.2.485.401 0512 764343 Methodi 00:00:00 00:00:[address] 3.430.2.7 0.2.7.3.698 Ho spita .3.759554 084.8 l .8 2022-02-03 2022-02-03 Telephone Prasanth, 1.2.840.1 [id number] 2099 [id number] Methodi 00:00:00 00:00:00 Eddie Franco 60062.1.[address] 3.430.2.7 Hospit a .3.353056 l .8 2022-02-03 2022-02-03 Telephone Prasanth, 1.2.840.1 [id number] 2099 [id number] Methodi 00:00:00 00:00:00 Eddie Franco 45110.1.[address] 3.430.2.7 Hospit a .3.722841 l .8 2022-01-01 2022-01-01 Telephone Alessio, 1.2.840.1 [id number] 2099 [id number] Methodi 00:00:00 00:00:[address] 3.430.2.7 Hospit a .3.528917 l .8 2022-01-01 2022-01-01 Telephone Alessio, 1.2.840.1 [id number] 2099 [id number] Methodi 00:00:00 00:00:[address] 3.430.2.7 Hospit a .3.155259 l .8 2021-12-26 2021-12-26 Surgery Small, 1.2.840.1 [id number] 0170 Methodi 11:00:00 11:45:[address] Hasan 3.430.2.7 Hospit a .3.921424 l .8 2021-12-26 2021-12-26 Surgery Small, 1.2.840.1 [id number] 3340 Methodi 11:00:00 11:45:[address] Hasan 3.430.2.7 Hospit a .3.698121 l .8 2021-12-26 2021-12-26 [facility], 1.2.840.1 [id number] 05561 07365 Methodi 10:21:00 11:28:00 Encounter Proctor 15574.1.[address] Hasan 3.430.2.7 Hospit a .3.717947 l .8 2021-12-26 2021-12-26 [facility], 1.2.840.1 [id number] Methodi 10:21:00 11:28:00 Encounter Proctor 84469.1.[address] Hasan 3.430.2.7 Hospit a .3.555360 l .8 2021-12-26 2021-12-26 Anesthesia PennieHans acharya 1.2.840.1 [id number] Methodi 10:44:00 11:06:00 Event Edward 82151.1.[address] 3.430.2.7 Hospit a .3.797198 l .8 2021-12-26 2021-12-26 Anesthesia PennieHans acharya 1.2.840.1 [id number] Methodi 10:44:00 11:06:00 Event Edward 40795.1.[address] 3.430.2.7 Hospit a .3.950514 l .8 2021-12-26 2021-12-26 Travel 1.2.840.1 1.2.363.112 0920 228444 Methodi 00:00:00 00:00:[address] 3.430.2.7 0.2.7.3.698 Ho spita .3.063229 084.8 l .8 2021-12-26 2021-12-26 Travel 1.2.840.1 1.2.781.660 7932 136978 Methodi 00:00:00 00:00:[address] 3.430.2.7 0.2.7.3.698 Ho spita .3.880641 084.8 l .8 2021-12-24 2021-12-24 Lab Staci, 1.2.840.1 [id number] 022178 4444 Methodi 08:00:00 08:15:[address] Hasan 3.430.2.7 Hospit a .3.364679 l .8 2021-12-24 2021-12-24 Lab Staci, 1.2.840.1 [id number] 5982 Methodi 08:00:00 08:15:[address] Hasan 3.430.2.7 Hospit a .3.156725 l .8 2021-12-24 2021-12-24 Orders Tran, 1.2.840.1 [id number] 9042 Methodi 00:00:00 00:00:00 Only Kortney 63059.1.[address] 3.430.2.7 Hospit a .3.576816 l .8 2021-12-24 2021-12-24 Orders Tran, 1.2.840.1 [id number] 1617 Methodi 00:00:00 00:00:00 Only Kortney 25703.1.[address] 3.430.2.7 Hospit a .3.178079 l .8 2021-12-18 2021-12-18 Office Prasanth, 1.2.840.1 [id number] 5162 Methodi 11:00:00 13:02:01 Visit Eddie Franco 27714.1.[address] 3.430.2.7 Hospit a .3.282370 l .8 2021-12-18 2021-12-18 Office Prasanth, 1.2.840.1 [id number] 8249 Methodi 11:00:00 13:02:01 Visit Eddie Franco 30994.1.[address] 3.430.2.7 Hospit a .3.641658 l .8 2021-12-18 2021-12-18 Travel 1.2.840.1 1.2.693.524 7980 188529 Methodi 00:00:00 00:00:[address] 3.430.2.7 0.2.7.3.698 Ho spita .3.373115 084.8 l .8 2021-12-18 2021-12-18 Travel 1.2.840.1 1.2.937.152 3885 685865 Methodi 00:00:00 00:00:[address] 3.430.2.7 0.2.7.3.698 Ho spita .3.106861 084.8 l .8 2021-12-16 2021-12-16 Office Doug Estevez [facility] Encounter/ Legacy 00:00:00 00:00:00 Visit Joey Serrano, Bijan [id number] [facility] [id number] [facility] 2021-12-09 2021-12-09 Refill Leggett, 1.2.840.1 [id number] Methodi 00:00:00 00:00:[address] 3.430.2.7 Hospit a .3.839601 l .8 2021-12-09 2021-12-09 Refill Leggett, 1.2.840.1 [id number] Methodi 00:00:00 00:00:[address] 3.430.2.7 Hospit a .3.703470 l .8 2021-11-28 2021-11-28 Office Carly, 1.2.840.1 [id number] Methodi 10:15:00 10:52:48 Visit [place] 10645.1.[address] 3.430.2.7 Hospit a .3.251335 l .8 2021-11-28 2021-11-28 Travel 1.2.840.1 1.2.898.024 3183 [id number] Methodi 00:00:00 00:00:[address] 3.430.2.7 0.2.7.3.698 Ho spita .3.203249 084.8 l .8 2021-11-17 2021-11-17 Office Fabby, 1.2.840.1 [id number] 423153 7560 Methodi 09:00:00 09:30:00 Visit [place] 04997.1.[address] [place] 3.430.2.7 Hospit a .3.053965 l .8 2021-11-17 2021-11-17 Travel 1.2.840.1 1.2.350.711 3423 516104 Methodi 00:00:00 00:00:[address] 3.430.2.7 0.2.7.3.698 Ho spita .3.716963 084.8 l .8 2021-11-14 2021-11-14 Orders Istre, 1.2.840.1 [id number] 070358 7356 Methodi 00:00:00 00:00:00 Only Shell 95938.1.[address] [place] 3.430.2.7 Hospi ta .3.869799 l .8 2021-11-11 2021-11-11 Telemedici Istre, 1.2.840.1 [id number] 332 [id number] Methodi 10:00:00 10:40:34 ne Shell 02898.1.[address] Doe 3.430.2.7 Hospi ta .3.714520 l .8 2021-11-07 2021-11-07 Emergency Noel, 1.2.840.1 [id number] 2100 798646 Methodi 14:04:00 15:46:[address] Kirsten 3.430.2.7 Hospit a .3.069716 l .8 2021-11-07 2021-11-07 Travel 1.2.840.1 1.2.781.981 3722 096058 Methodi 00:00:00 00:00:[address] 3.430.2.7 0.2.7.3.698 Ho spita .3.019600 084.8 l .8 2021-11-03 2021-11-03 Lab Staci, 1.2.840.1 [id number] 307116 8706 Methodi 08:25:00 08:30:[address] Hasan 3.430.2.7 Hospit a .3.844795 l .8 2021-11-03 2021-11-03 Outpatient [facility] [id number] 623 [place] 00:00:00 00:00:00 PROCTOR [address] 2021-11-03 2021-11-03 Telephone Alessio, 1.2.840.1 [id number] 2099 110322 Methodi 00:00:00 00:00:[address] 3.430.2.7 Hospit a .3.185681 l .8 2021-11-03 2021-11-03 Travel 1.2.840.1 1.2.172.462 7174 186727 Methodi 00:00:00 00:00:[address] 3.430.2.7 0.2.7.3.698 Ho spita .3.573109 084.8 l .8 2021-10-29 2021-10-29 Documentat Binta, 1.2.840.1 [id number] 2 [id number] Methodi 00:00:00 00:00:00 ion Amanda 39019.1.[address] 3.430.2.7 Hospit a .3.348341 l .8 2021-10-29 2021-10-29 Prep for Binta, 1.2.840.1 [id number] 519 [id number] Methodi 00:00:00 00:00:00 Surgery Amanda 22660.1.[address] 3.430.2.7 Hospit a .3.240596 l .8 2021-10-29 2021-10-29 Telephone Binta, 1.2.840.1 [id number] 21 [id number] Methodi 00:00:00 00:00:[address] 3.430.2.7 Hospit a .3.287759 l .8 2021-10-29 2021-10-29 Travel 1.2.840.1 1.2.135.943 1594 417780 Methodi 00:00:00 00:00:[address] 3.430.2.7 0.2.7.3.698 Ho spita .3.796531 084.8 l .8 2021-10-22 2021-10-22 Office Kem, 1.2.840.1 [id number] 654 [id number] Methodi 09:40:00 10:17:00 Visit Rebecca Nguyen 32180.1.[address] 3.430.2.7 Hospit a .3.137980 l .8 2021-10-22 2021-10-22 Travel 1.2.840.1 1.2.742.488 5635 526600 Methodi 00:00:00 00:00:[address] 3.430.2.7 0.2.7.3.698 Ho spita .3.024754 084.8 l .8 2021-10-14 2021-10-15 Emergency Adry, 1.2.840.1 [id number] 982 [id number] Methodi 21:57:00 00:06:00 José Kody 71677.1.[address] 3.430.2.7 Hospit a .3.207154 l .8 2021-10-12 2021-10-12 Emergency Courtney, 1.2.840.1 [id number] 2099 702178 Methodi 10:13:00 14:37:00 [address] Swann 02571.1.[address] 3.430.2.7 Hospit a .3.835224 l .8 2021-10-09 2021-10-09 Telephone Juan Carlos Rivers 1.2.840.1 [id number] Methodi 00:00:00 00:00:[address] 3.430.2.7 Hospit a .3.308919 l .8 2021-10-09 2021-10-09 Telephone Juan Carlos Rivers 1.2.840.1 [id number] Methodi 00:00:00 00:00:[address] 3.430.2.7 Hospit a .3.515366 l .8 2021-10-09 2021-10-09 Orders Alicia, 1.2.840.1 [id number] 099216 2842 Methodi 00:00:00 00:00:00 Only Shell 02040.1.[address] [place] 3.430.2.7 Hospi ta .3.544487 l .8 2021-10-02 2021-10-02 Telephone Lazarus, 1.2.840.1 [id number] 889 [id number] Methodi 00:00:00 00:00:[address] 3.430.2.7 Hospit a .3.607001 l .8 2021-09-30 2021-09-30 Surgery Kem, 1.2.840.1 [id number] 930 [id number] Methodi 07:15:00 09:02:00 Rebecca Nguyen 91982.1.[address] 3.430.2.7 Hospit a .3.840954 l .8 2021-09-30 2021-09-30 [facility] 1.2.840.1 [id number] 21 [id number] Methodi 06:02:00 08:50:00 Encounter Rebecca Nguyen 78881.1.[address] 3.430.2.7 Hospit a .3.045682 l .8 2021-09-30 2021-09-30 Anesthesia Tomas Mattson 1.2.840.1 1045 60129 [id number] Methodi 07:05:00 08:04:00 Event Sunita Marie 48159.1.[address] 3.430.2.7 Hospit a .3.607280 l .8 2021-09-26 2021-09-26 Outpatient BURKET, [facility] 2099 [id number] [place] 00:00:00 00:00:00 REBECCA [address] 2021-09-19 2021-09-19 Travel 1.2.840.1 1.2.437.240 1790 699159 Methodi 00:00:00 00:00:[address] 3.430.2.7 0.2.7.3.698 Ho spita .3.637336 084.8 l .8 2021-09-19 2021-09-19 Orders Marrero, 1.2.840.1 [id number] 2099 097227 Methodi 00:00:00 00:00:00 Only Sharon 48397.1.[address] 3.430.2.7 Hospit a .3.237930 l .8 2021-09-19 2021-09-19 Orders Tavares, 1.2.840.1 219134380 243196 2521 Methodi 00:00:00 00:00:00 Only Peggy 30937.1.[address] 3.430.2.7 Hospit a .3.469023 l .8 2021-09-18 2021-09-18 Orders Propes, 1.2.840.1 858299936 936178 0756 Methodi 00:00:00 00:00:00 Only Pina 98441.1.[address] 3.430.2.7 Hospit a .3.771668 l .8 2021-09-14 2021-09-14 Orders Tavares, 1.2.840.1 464548827 461020 9227 Methodi 00:00:00 00:00:00 Only Peggy 31319.1.[address] 3.430.2.7 Hospit a .3.347897 l .8 2021-09-11 2021-09-11 Office Tavares, 1.2.840.1 694107586 068613 9121 Methodi 15:50:00 16:55:49 Visit Peggy 84484.1.[address] 3.430.2.7 Hospit a .3.130587 l .8 2021-09-11 2021-09-11 Travel 1.2.840.1 1.2.026.378 2032 291555 Methodi 00:00:00 00:00:[address] 3.430.2.7 0.2.7.3.698 Ho spita .3.133420 084.8 l .8 2021-09-10 2021-09-10 Office Kem, 1.2.840.1 [id number] 274 2086253 Methodi 10:40:00 11:03:05 Visit Rebecca Nguyen 00495.1.[address] 3.430.2.7 Hospit a .3.926037 l .8 2021-09-10 2021-09-10 Orders Edmundo, 1.2.840.1 [id number] 2099 089465 Methodi 00:00:00 00:00:00 Only Jami 57766.1.[address] 3.430.2.7 Hospit a .3.723253 l .8 2021-09-10 2021-09-10 Outpatient KEM, [facility] 2100 085008 [place] 00:00:00 00:00:00 REBECCA Marc [facility] 2021-08-31 2021-08-31 Refill Iscorwin, 1.2.840.1 [id number] 644964 4194 Methodi 00:00:00 00:00:[address] Doe 3.430.2.7 Hospi ta .3.461631 l .8 2021-08-31 2021-08-31 Refill Prasanth, 1.2.840.1 [id number] 492685 4704 Methodi 00:00:00 00:00:00 Eddie Franco 72757.1.[address] 3.430.2.7 Hospit a .3.840389 l .8 2021-08-29 2021-08-29 Telephone Denisse, 1.2.840.1 [id number] 2099 447229 Methodi 00:00:00 00:00:[address]21.[address] 3.430.2.7 Hospit a .3.686185 l .8 2021-08-29 2021-08-29 Orders Istre, 1.2.840.1 248729936 921189 7857 Methodi 00:00:00 00:00:00 Only Shell 04882.1.[address] Doe 3.430.2.7 Hospi ta .3.293293 l .8 2021-08-28 2021-08-28 Travel 1.2.840.1 1.2.826.131 4885 245719 Methodi 00:00:00 00:00:[address] 3.430.2.7 0.2.7.3.698 Ho spita .3.849547 084.8 l .8 2021-08-26 2021-08-26 Emergency Mazin, 1.2.840.1 [id number] 2100 711181 Methodi 16:36:00 20:08:[address] Adrienne 3.430.2.7 Hospit a .3.271389 l .8 2021-08-26 2021-08-26 Orders Colmenter, 1.2.840.1 [id number] 449 [id number] Methodi 00:00:00 00:00:00 Only Linda 84473.1.[address] 3.430.2.7 Hospit a .3.030877 l .8 2021-08-21 2021-08-21 Orders Colmenter, 1.2.840.1 359225186 056 6699732 Methodi 00:00:00 00:00:00 Only Linda 92421.1.[address] 3.430.2.7 Hospit a .3.596404 l .8 2021-08-14 2021-08-14 Office Colmenter, 1.2.840.1 775269855 540 [id number] Methodi 11:00:00 13:05:34 Visit Linda 81012.1.[address] 3.430.2.7 Hospit a .3.688123 l .8 2021-08-12 2021-08-12 Office Prasanth, 1.2.840.1 773467604 767081 0512 Methodi 10:00:00 11:08:57 Visit Eddie Franco 23831.1.[address] 3.430.2.7 Hospit a .3.956977 l .8 2021-08-12 2021-08-12 Travel 1.2.840.1 1.2.103.216 6632 208164 Methodi 00:00:00 00:00:[address] 3.430.2.7 0.2.7.3.698 Ho spita .3.839561 084.8 l .8 2021-08-08 2021-08-08 Emergency EM Lynda, HCAKW SHIRLENE [id number] [facility] 12:48:00 19:41:00 Di 70 [facility] 2021-08-08 2021-08-08 Emergency EM Lynda, HCAKW HCAKW [id number] [facility] 12:48:00 19:41:00 Di [id number] [facility] 2021-08-08 2021-08-08 Outpatient Lynda, HCACL LABO [id number] 165 [facility] 19:09:00 19:09:00 Di 00 [facility] 2021-08-08 2021-08-08 Transcribe Alicia, 1.2.840.1 [id number] 344 [id number] Methodi 00:00:00 00:00:00 Orders Shell 85581.1.[address] [place] 3.430.2.7 Hospi ta .3.795487 l .8 2021-08-06 2021-08-06 Emergency Myles Martin 1.2.840.1 [id number] Methodi 14:54:00 18:50:[address] 3.430.2.7 Hospit a .3.264150 l .8 2021-08-06 2021-08-06 Travel 1.2.840.1 1.2.649.777 9198 437617 Methodi 00:00:00 00:00:[address] 3.430.2.7 0.2.7.3.698 Ho spita .3.933315 084.8 l .8 2021-08-04 2021-08-04 Office Istre, 1.2.840.1 959987548 716788 5709 Methodi 14:20:00 15:33:19 Visit Shell 29067.1.[address] Doe 3.430.2.7 Hospi ta .3.516740 l .8 2021-08-04 2021-08-04 Travel 1.2.840.1 1.2.394.153 5786 807417 Methodi 00:00:00 00:00:[address] 3.430.2.7 0.2.7.3.698 Ho spita .3.987560 084.8 l .8 2021-07-31 2021-07-31 Emergency Nelson Villagran 1.2.840.1 [id number] [id number] Methodi 21:39:00 23:28:[address] 3.430.2.7 Hospit a .3.648066 l .8 2021-07-31 2021-07-31 Travel 1.2.840.1 1.2.532.909 4274 710029 Methodi 00:00:00 00:00:[address] 3.430.2.7 0.2.7.3.698 Ho spita .3.495576 084.8 l .8 2021-07-30 2021-07-30 Emergency Myles Martin 1.2.840.1 [id number] Methodi 13:34:00 17:16:[address] 3.430.2.7 Hospit a .3.060700 l .8 2021-07-30 2021-07-30 Telephone Istre, 1.2.840.1 [id number] 2099 277521 Methodi 00:00:00 00:00:[address] [place] 3.430.2.7 Hospi ta .3.422909 l .8 2021-07-28 2021-07-28 [facility] [id number] 879 [place] 00:00:00 00:00:00 PEGGY Smith [facility] 2021-07-24 2021-07-24 Orders Lopez, 1.2.840.1 029093483 01369 01443 Methodi 00:00:00 00:00:00 Only Maureen 39972.1.[address] 3.430.2.7 Hospit a .3.718480 l .8 2021-07-23 2021-07-23 Orders Istre, 1.2.840.1 642895429 205948 9639 Methodi 00:00:00 00:00:00 Only Shell 49294.1.[address] [place] 3.430.2.7 Hospi ta .3.351841 l .8 2021-07-21 2021-07-21 Orders Istre, 1.2.840.1 501109419 369378 6066 Methodi 00:00:00 00:00:00 Only Shell 25023.1.[address] [place] 3.430.2.7 Hospi ta .3.097357 l .8 2021-07-15 2021-07-15 Telephone Leggett, 1.2.840.1 [id number] 21 [id number] Methodi 00:00:00 00:00:[address] 3.430.2.7 Hospit a .3.133617 l .8 2021-07-15 2021-07-15 Travel 1.2.840.1 1.2.981.281 0953 934963 Methodi 00:00:00 00:00:[address] 3.430.2.7 0.2.7.3.698 Ho spita .3.730367 084.8 l .8 2021-07-10 2021-07-10 Treatment Shell Vargas 1.2.840.1 [id number] [id number] Methodi 09:00:00 10:00:00 Peggy Esparza 00188.1.[address] Smooth [place] 3.430.2.7 H ospita .3.880928 l .8 2021-07-10 2021-07-10 Plan of 1.2.840.1 857787138 923055 0810 Methodi 00:00:00 00:00:[address] Documentat 3.430.2.7 Hos margie ion .3.671695 l .8 2021-07-09 2021-07-09 Travel 1.2.840.1 1.2.929.869 9825 122100 Methodi 00:00:00 00:00:[address] 3.430.2.7 0.2.7.3.698 Ho spita .3.737626 084.8 l .8 2021-07-09 2021-07-09 Orders Istre, 1.2.840.1 490099901 416219 3909 Methodi 00:00:00 00:00:00 Only Shell 84517.1.[address] Doe 3.430.2.7 Hospi ta .3.254751 l .8 2021-07-03 2021-07-03 Travel 1.2.840.1 1.2.663.395 8292 545804 Methodi 00:00:00 00:00:[address] 3.430.2.7 0.2.7.3.698 Ho spita .3.883506 084.8 l .8 2021-06-30 2021-06-30 Emergency Tyshawn, Nelson 1.2.840.1 [id number] [id number] Methodi 14:43:00 20:06:[address] 3.430.2.7 Hospit a .3.906760 l .8 2021-06-19 2021-06-19 Orders Madera, 1.2.840.1 957246748 269233 7191 Methodi 00:00:00 00:00:00 Only Susanne 93902.1.[address] 3.430.2.7 Hospit a .3.556493 l .8 2021-06-18 2021-06-18 Orders Tran, 1.2.840.1 996076362 612116 3365 Methodi 00:00:00 00:00:00 Only Kortney 75416.1.[address] 3.430.2.7 Hospit a .3.231623 l .8 2021-06-18 2021-06-18 Telephone Jessica, 1.2.840.1 [id number] 357 0525129 Methodi 00:00:00 00:00:[address] 3.430.2.7 Hospit a .3.977562 l .8 2021-06-16 2021-06-16 Office Prasanth, 1.2.840.1 [id number] 182295 0471 Methodi 11:40:00 13:03:55 Visit Eddie AldridgeChantal 29353.1.[address] 3.430.2.7 Hospit a .3.957528 l .8 2021-06-16 2021-06-16 Travel 1.2.840.1 1.2.714.755 5488 815145 Methodi 00:00:00 00:00:[address] 3.430.2.7 0.2.7.3.698 spita .3.196150 084.8 l .8 2021-06-03 2021-06-03 Refill [place], 1.2.840.1 130060935 852644 7221 Methodi 00:00:00 00:00:[address] 3.430.2.7 Hospit a .3.368190 l .8 2021-06-03 2021-06-03 Telephone Brady, 1.2.840.1 [id number] 2099 793856 Methodi 00:00:00 00:00:[address] 3.430.2.7 Hospit a .3.265872 l .8 2021-06-02 2021-06-02 Emergency Gunnar, 1.2.840.1 [id number] 2 [id number] Methodi 10:56:00 13:23:00 Mario Crook 72498.1.1 606 s t 3.430.2.7 Hospit a .3.047472 l .8 2021-06-02 2021-06-02 Orders Alicia, 1.2.840.1 323061205 271210 6495 Methodi 00:00:00 00:00:00 Only Shell 44775.1.[address] [place] 3.430.2.7 Hospi ta .3.334110 l .8 2021-05-30 2021-05-30 Treatment Shaun Vargasudy [place] 1.2.840.1 113128659 [id number] Methodi 10:00:00 11:00:00 Smooth [place] 67708.1.[address] 3.430.2.7 Hospit a .3.588903 l .8 2021-05-28 2021-05-28 Orders Alicia, 1.2.840.1 342005093 495534 3434 Methodi 00:00:00 00:00:00 Only Shell 82365.1.[address] Doe 3.430.2.7 Hospi ta .3.684842 l .8 2021-05-27 2021-05-27 Travel 1.2.840.1 1.2.541.729 8413 941365 Methodi 00:00:00 00:00:[address] 3.430.2.7 0.2.7.3.698 Ho spita .3.624911 084.8 l .8 2021-05-19 2021-05-19 Evaluation Kamryn Vargasy Doe 1.2.840.1 [id number] [id number] Methodi 11:00:00 12:00:00 Peggy Esparza 46486.1.[address] Smooth [place] 3.430.2.7 H ospita .3.256097 l .8 2021-05-19 2021-05-19 Plan of 1.2.840.1 589681635 812415 3965 Methodi 00:00:00 00:00:[address] Documentat 3.430.2.7 Hos margie ion .3.930416 l .8 2021-05-19 2021-05-19 Travel 1.2.840.1 1.2.318.172 0886 630057 Methodi 00:00:00 00:00:[address] 3.430.2.7 0.2.7.3.698 Ho spita .3.775513 084.8 l .8 2021-05-09 2021-05-09 Travel 1.2.840.1 1.2.691.627 3652 087620 Methodi 00:00:00 00:00:[address] 3.430.2.7 0.2.7.3.698 Ho spita .3.983170 084.8 l .8 2021-05-09 2021-05-09 Outpatient [place] [id number] 977 [place] 00:00:00 00:00:00 PEGGY [address] 2021-05-06 2021-05-06 Orders Istre, 1.2.840.1 188556186 496837 8549 Methodi 00:00:00 00:00:00 Only Shell 19022.1.[address] [place] 3.430.2.7 Hospi ta .3.513405 l .8 2021-05-05 2021-05-05 Outpatient [place] [id number] 738 [place] 00:00:00 00:00:00 PEGGY [address] 2021-05-04 2021-05-04 Emergency Oghogho, 1.2.840.1 [id number] 131 7648417 Methodi 14:39:00 18:56:[address] 3.430.2.7 Hospit a .3.017181 l .8 2021-05-04 2021-05-04 Travel 1.2.840.1 1.2.681.535 7955 106632 Methodi 00:00:00 00:00:[address] 3.430.2.7 0.2.7.3.698 Ho spita .3.403133 084.8 l .8 2021-05-02 2021-05-02 [facility] 6[address]99 9559 [place] 00:00:00 00:00:00 [facility] 2021-04-30 2021-04-30 Travel 1.2.840.1 1.2.922.616 3168 434485 Methodi 00:00:00 00:00:[address] 3.430.2.7 0.2.7.3.698 Ho spita .3.362610 084.8 l .8 2021-04-28 2021-04-28 Orders Istre, 1.2.840.1 [id number] 703493 1269 Methodi 00:00:00 00:00:00 Only Shell 97113.1.[address] [place] 3.430.2.7 Hospi ta .3.616796 l .8 2021-04-17 2021-04-17 Office Istre, 1.2.840.1 584203329 324714 1278 Methodi 15:00:00 15:00:06 Visit Shell 06300.1.[address] Doe 3.430.2.7 Hospi ta .3.291928 l .8 2021-04-16 2021-04-16 Travel 1.2.840.1 1.2.566.236 1161 888789 Methodi 00:00:00 00:00:[address] 3.430.2.7 0.2.7.3.698 Ho spita .3.367394 084.8 l .8 2021-04-12 2021-04-12 Emergency Svach, 1.2.840.1 255769119 2100 474158 Methodi 15:47:00 22:48:00 Shine R [address]323.1.[address] 3.430.2.7 Hospit a .3.339863 l .8 2021-04-08 2021-04-08 Travel 1.2.840.1 1.2.545.986 3673 178641 Methodi 00:00:00 00:00:[address] 3.430.2.7 0.2.7.3.698 Ho spita .3.656823 084.8 l .8 2021-03-28 2021-03-28 Office Rj Mireles [facility] [id number] 1 [id number] [place] 08:30:00 09:30:00 Visit [facility] 2021-03-28 2021-03-28 Outpatient [facility] 62830 6844 [place] 00:00:00 00:00:00 [facility] 2021-03-14 2021-03-14 Outpatient [facility] 96562 1468 [place] 00:00:00 00:00:00 [facility] 2021-03-03 2021-03-03 Telephone Alicia, 1.2.840.1 [id number] 2099 403799 Methodi 11:20:00 11:48:51 Consult Shell 14730.1.[address] [place] 3.430.2.7 Hospi ta .3.081678 l .8 2021-02-27 2021-02-27 Travel 1.2.840.1 1.2.222.709 4028 607478 Methodi 00:00:00 00:00:[address] 3.430.2.7 0.2.7.3.698 Ho spita .3.146402 084.8 l .8 2021-02-19 2021-02-19 Outpatient CARLY, [facility] 2100 [id number] [place] 00:00:00 00:00:[address]A [address] 2021-02-17 2021-02-17 Outpatient [facility] [id number] [place] 00:00:00 00:00:00 482 Method i 2021-02-17 2021-02-17 Outpatient STACI, [facility] [id number] 406 [place] 00:00:00 00:00:00 PROCTOR 706 Method i 2021-02-10 2021-02-10 Outpatient TAVARES, [facility] [id number] 790 [place] 00:00:00 00:00:00 PEGGY 856 Method i 2021-02-07 2021-02-07 Outpatient ALICIA, [facility] [id number] 637 [place] 00:00:00 00:00:00 SHELL 793 Method i 2021-01-30 2021-01-31 Outpatient IMELDA, [facility] 382 [id number] 174 [place] 00:00:00 00:00:00 KRISTY 451 Method i 2021-01-25 2021-01-25 Emergency KENA KILLIAN [facility] 064 70155 20696 [place] 00:00:00 00:00:00 190 Method i 2021-01-24 2021-01-24 Outpatient VEJPONGSA, [facility] 2100 [id number] [place] 00:00:00 00:00:00 PIMPRAPA 711 Metho di 2021-01-09 2021-01-09 Outpatient [facility] [id number] 646 [place] 00:00:00 00:00:00 247 Method i 2020-12-29 2020-12-29 Emergency VASQUEZ, [facility] 064 [id number] 98 [place] 00:00:00 00:00:00 CRISTÓBAL 225 Method i 2020-12-23 2020-12-23 Outpatient PRASANTH, [facility] [id number] 498 [place] 00:00:00 00:00:00 EDDIE 305 Method i 2020-12-11 2020-12-11 Emergency VASQUEZ, [facility] 064 [id number] 96 [place] 00:00:00 00:00:00 CRISTÓBAL 030 Method i 2020-12-08 2020-12-08 Emergency TRISTAN, [facility] 064 [id number] 26 [place] 00:00:00 00:00:00 TRUNG 699 Method i 2020-11-25 2020-11-26 Office Doug Estevez [facility] Encounter/ Legacy 00:00:00 00:00:00 Visit Symone Moreau [id number] 7685 Communi [id number] [facility] 2020-11-25 2020-11-26 Office Doug Estevez [facility] Encounter/ Legacy 00:00:00 00:00:00 Visit Symone Moreau [id number] 5496 Communi [id number] [facility] 2020-11-18 2020-11-18 Outpatient STACI, [facility] [id number] 074 [place] 00:00:00 00:00:00 PROCTOR 729 Method i 2020-11-02 2020-11-02 Emergency HALEY, [facility] 984 [id number] 062 [place] 00:00:00 00:00:00 ROGER 241 Method i 2020-10-29 2020-10-29 Outpatient STACI, [facility] [id number] 857 [place] 00:00:00 00:00:00 PROCTOR 983 Method i 2020-10-25 2020-10-25 Outpatient VESOLIS, [facility] 2100 [id number] [place] 00:00:00 00:00:00 PIMPRAPA 573 Metho di 2020-10-24 2020-10-24 Outpatient VEEmmaPONSHEFALI, [facility] 2100 [id number] [place] 00:00:00 00:00:00 PIMPRAPA 921 Metho di 2020-10-18 2020-10-19 Emergency HOPE, [facility] 064 [id number] 58 [place] 00:00:00 00:00:00 TRUNG 724 Method i 2020-10-18 2020-10-18 Outpatient SMALL, [facility] [id number] 110 [place] 00:00:00 00:00:00 PROCTOR 224 Method i 2020-10-11 2020-10-11 Emergency COURTNEY, [facility] 064 [id number] 52 [place] 00:00:00 00:00:00 TRUNG 080 Method i 2020-10-09 2020-10-09 Outpatient PRASANTH, [facility] [id number] 499 [place] 00:00:00 00:00:00 EDDIE 020 Method i 2020-10-01 2020-10-01 Outpatient AHMED, [facility] [id number] 980 [place] 00:00:00 00:00:00 MOHAMMAD 768 Metho di 2020-09-26 2020-09-26 Outpatient STACI, [facility] [id number] 765 [place] 00:00:00 00:00:00 PROCTOR 047 Method i 2020-09-13 2020-09-13 Outpatient PRASANTH, [facility] [id number] 045 [place] 00:00:00 00:00:00 EDDIE 249 Method i 2020-09-11 2020-09-11 Outpatient VEJPONGSA, [facility] 2100 [id number] [place] 00:00:00 00:00:00 PIMPRAPA 754 Metho di 2020-08-23 2020-08-23 Outpatient AHMED, [facility] [id number] [place] 00:00:00 00:00:00 MOHAMMAD 132 Metho di 2020-08-19 2020-08-21 Outpatient MELTON, [facility] [id number] [place] 00:00:00 00:00:00 TRUNG 187 Method i 2020-07-31 2020-08-01 Outpatient ARREDONDO, [facility] 050 [id number] [place] 00:00:00 00:00:00 RICKY-DEBBIE 628 Met hodi 2020-07-16 2020-07-16 Emergency HOPE, [facility] 064 [id number] [place] 00:00:00 00:00:00 TRUNG 600 Method i 2020-07-05 2020-07-05 Outpatient BROCK, [facility] [id number] [place] 00:00:00 00:00:00 [facility] 2020-07-05 2020-07-05 Emergency VASQUEZ, [facility] 064 [id number] [place] 00:00:00 00:00:00 CRISTÓBAL 088 Method i 2020-06-28 2020-06-28 Outpatient STACI, [facility] [id number] [place] 00:00:00 00:00:00 PROCTOR 174 Method i 2020-06-27 2020-06-27 Outpatient PRASANTH, [facility] [id number] [place] 00:00:00 00:00:00 EDDIE 576 Method i 2020-06-24 2020-06-24 Outpatient ALICIA, [facility] [id number] [place] 00:00:00 00:00:00 SHELL 509 Method i 2020-06-19 2020-06-20 Emergency SPIRITISM, [facility] 064 [id number] [place] 00:00:00 00:00:00 NADIM 685 Method i 2020-06-11 2020-06-11 Outpatient SMALL, [facility] [id number] [place] 00:00:00 00:00:00 PROCTOR 214 Method i 2020-06-11 2020-06-11 Outpatient SMALL, [facility] [id number] [place] 00:00:00 00:00:00 PROCTOR 956 Method i 2020-06-06 2020-06-06 Outpatient ISTRE, [facility] [id number] [place] 00:00:00 00:00:00 SHELL 498 Method i 2020-06-03 2020-06-03 Outpatient ISTRE, [facility] [id number] [place] 00:00:00 00:00:00 SHELL 193 Method i 2020-06-03 2020-06-03 Outpatient ISTRE, [facility] [id number] [place] 00:00:00 00:00:00 SHELL 363 Method i 2020-05-26 2020-05-27 Outpatient SMALL, [facility] [id number] [place] 00:00:00 00:00:00 HAYLEE 766 Method i 2020-05-24 2020-05-24 Emergency JOSSY, [facility] 064 [id number] [place] 00:00:00 00:00:00 BELKIS 964 Method i 2020-05-23 2020-05-23 Emergency FORMAN, [facility] 064 [id number] [place] 00:00:00 00:00:00 TANIA 926 Method i 2020 2020 Outpatient ISTRE, [facility] [id number] [place] 00:00:00 00:00:00 SHELL 882 Method i 2020 2020 Emergency KENDIG, [facility] 064 [id number] [place] 00:00:00 00:00:00 KALIF 304 Method i 2020-05-20 2020-05-20 Outpatient ISTRE, [facility] [id number] [place] 00:00:00 00:00:00 SHELL 217 Method i 2020-05-13 2020-05-13 Outpatient MIRELES, [facility] [id number] [place] 00:00:00 00:00:00 RJ Sutton 2020-05-11 2020-05-11 Emergency HOPE, [facility] 064 [id number] [place] 00:00:00 00:00:00 TRUNG 164 Method i 2020-05-07 2020-05-07 Outpatient ROGER ZAPATA [facility] [id number] [place] 07:48:18 07:48:18 Health 2020-04-15 2020-04-15 Emergency KENA KILLIAN [facility] 064 [id number] [place] 00:00:00 00:00:00 597 Method i 2020-04-01 2020-04-01 Emergency KI, [facility] 064 [id number] [place] 00:00:00 00:00:00 KALIF 631 Method i 2020-03-23 2020-03-24 Inpatient SEPTIMUS, [facility] 089 [id number] [place] 00:00:00 00:00:00 STEPHY 252 Method i 2020-03-23 2020-03-23 Emergency HOPE, [facility] 064 [id number] [place] 00:00:00 00:00:00 TRUNG 603 Method i 2020-03-20 2020-03-20 Emergency ALTAGRACIA VILLASENOR [facility] 064 [id number] [place] 00:00:00 00:00:00 875 Method i 2020-02-29 2020-03-01 Emergency DE CRANDALL, [facility] 064 [id number] [place] 00:00:00 00:00:00 BERNARDER 731 Me thodi 2020-02-05 2020-02-06 Emergency ENE, [facility] 064 [id number] [place] 00:00:00 00:00:00 KEM 185 Meth john 2020-02-03 2020-02-03 Emergency DE CRANDALL, [facility] 064 [id number] [place] 00:00:00 00:00:00 BERNARDER 451 Me thodi 2019-12-20 2019-12-21 Emergency NORJAREDSALVADOR, [facility] 064 [id number] [place] 00:00:00 00:00:00 KEM 640 Meth john 2019-12-14 2019-12-14 Emergency KI, [facility] 064 [id number] [place] 00:00:00 00:00:00 KALIF 126 Method i 2019-12-11 2019-12-11 Emergency HOPE, [facility] 064 [id number] [place] 00:00:00 00:00:00 TRUNG 349 Method i 2019-12-08 2019-12-08 Emergency SUSHIL, [facility] [id number] [place] 00:00:00 00:00:00 ISAC 449 Pr thodi 2019-11-24 2019-11-24 Outpatient ROGER ZAPATA [facility] [id number] [place] 00:00:00 00:00:00 Health 2019-11-21 2019-11-21 Emergency NELSON VILLAGRAN [facility] 064 [id number] [place] 00:00:00 00:00:00 015 Method i 2019-11-14 2019-11-14 Outpatient ROGER ZAPATA [facility] [id number] [place] 06:55:06 06:55:06 Health 2019-11-13 2019-11-13 Outpatient [facility] [id number] [place] 00:00:00 00:00:00 Health 2019-11-10 2019-11-11 Emergency OHPE, [facility] 064 [id number] [place] 00:00:00 00:00:00 TRUNG 398 Method i 2019-11-07 2019-11-07 Outpatient [facility] [id number] [place] 14:24:03 14:24:03 Health 2019-11-07 2019-11-07 Outpatient [facility] [id number] [place] 12:22:44 12:22:44 Health 2019-11-07 2019-11-07 Outpatient [facility] [id number] [place] 00:00:00 00:00:00 Health 2019-11-07 2019-11-07 Outpatient [facility] [id number] [place] 00:00:00 00:00:00 Health 2019-10-30 2019-10-30 Outpatient [facility] [id number] [place] 11:49:58 11:49:58 Health 2019-10-30 2019-10-30 Outpatient [facility] [id number] [place] 00:00:00 00:00:00 Health 2019-10-12 2019-10-12 Outpatient [facility] [id number] [place] 00:00:00 00:00:00 Health 2019-10-10 2019-10-10 Outpatient [facility] [id number] [place] 08:15:33 08:15:33 Health 2019-10-09 2019-10-09 Outpatient [facility] [id number] [place] 00:00:00 00:00:00 2019-09-25 2019-09-25 Outpatient [facility] [id number] [place] 00:00:00 00:00:00 Health 2019-09-19 2019-09-19 Outpatient [facility] [id number] [place] 15:17:15 15:17:15 Health 2019-09-12 2019-09-12 Outpatient [facility] [id number] [place] 09:33:27 09:33:27 Health 2019-09-12 2019-09-12 Outpatient [facility] [id number] [place] 08:35:47 08:35:47 Health 2019-09-12 2019-09-12 Outpatient [facility] [id number] [place] 00:00:00 00:00:00 2019-09-09 2019-09-09 Emergency HOPE, [facility] [id number] [place] 00:00:00 00:00:00 TRUNG [address] 2019-08-25 2019-08-25 Outpatient [facility] [id number] [place] 06:54:32 06:54:32 Health 2019-08-24 2019-08-24 Outpatient [facility] [id number] [place] 00:00:00 00:00:00 2019-08-23 2019-08-23 Outpatient [facility] [id number] [place] 00:00:00 00:00:00 Health 2019-08-05 2019-08-05 Emergency VANDER [facility] [id number] [place] 00:00:00 00:00:00 OTILIO, [address] 2019-08-03 2019-08-03 Emergency [facility] [id number] [place] 00:00:00 00:00:[address] 2019-07-24 2019-07-24 Outpatient [facility] [id number] [place] 08:35:14 08:35:14 Health 2019-06-21 2019-06-21 Outpatient [facility] [id number] [place] 00:00:00 00:00:00 Health 2019-06-15 2019-06-16 Emergency HOPE, [facility] [id number] [place] 00:00:00 00:00:00 TRUNG Koroma8 Method i 2019-06-15 2019-06-15 Emergency [facility] [id number] [place] 14:03:00 14:03:00 [facility] 2019-06-14 2019-06-14 Outpatient [facility] [id number] [place] 00:00:00 00:00:00 [facility] 2019-06-08 2019-06-08 Outpatient [facility] [id number] [place] 13:49:26 13:49:26 Health 2019-06-08 2019-06-08 Outpatient [facility] [id number] [place] 13:11:00 13:11:00 [facility] 2019-06-08 2019-06-08 Outpatient [facility] [id number] [place] 00:00:00 00:00:00 [facility] 2019-06-07 2019-06-07 Emergency [facility] [id number] [place] 12:06:12 12:06:12 [facility] 2019-06-07 2019-06-07 Emergency [facility] [id number] [place] 10:57:48 10:57:48 Health 2019-03-15 2019-03-15 Outpatient [facility] [id number] [place] 14:00:36 14:00:36 [facility] 2019-03-15 2019-03-15 Outpatient [facility] [id number] [place] 12:20:09 12:20:09 [facility] 2019-03-15 2019-03-15 Outpatient [facility] [id number] [place] 00:00:00 00:00:00 [facility] 2019-01-25 2019-01-25 Outpatient [facility] [id number] [place] 10:20:47 10:20:47 Health 2019-01-13 2019-01-13 Outpatient [facility] [id number] [place] 10:25:55 10:25:55 Health 2019-01-03 2019-01-03 Outpatient [facility] [id number] [place] 10:33:43 10:33:43 Health 2019-01-03 2019-01-03 Outpatient [facility] [id number] [place] 08:40:50 08:40:50 Health 2019-01-03 2019-01-03 Outpatient [facility] [id number] [place] 07:58:31 07:58:31 Health 2019-01-03 2019-01-03 Outpatient [facility] [id number] [place] 00:00:00 00:00:00 [facility] 2018-12-29 2018-12-29 Outpatient [facility] [id number] [place] 00:00:00 00:00:00 Health 2018-12-27 2018-12-27 Outpatient [facility] [id number] [place] 00:00:00 00:00:00 Health 2018-12-26 2018-12-26 Outpatient [facility] [id number] [place] 16:37:58 16:37:58 Health 2018-12-09 2018-12-09 Outpatient [facility] [id number] [place] 16:51:56 16:51:56 Health 2018-12-09 2018-12-09 Outpatient [facility] [id number] [place] 14:15:31 14:15:31 Health 2018-12-09 2018-12-09 Outpatient [facility] [id number] [place] 00:00:00 00:00:00 [facility] 2018-11-26 2018-11-26 Emergency [facility] [id number] [place] 16:08:40 16:08:40 [facility] 2018-01-17 2018-01-17 Outpatient E MYRNA CEDENO [facility] 006 [id number] [place] 10:49:00 12:30:00 [facility] [place] 2017-12-28 2017-12-28 Outpatient E MILES [facility] [id number] [place] 10:12:00 12:25:00 PAUL [facility] [place] 2017-12-20 2017-12-20 Outpatient E MYRNA CEDENO [facility] [id number] [place] 23:13:00 23:50:00 [facility] [place] 2017-10-15 2017-10-15 Outpatient E SHEIKH [facility] [id number] [place] 09:57:00 11:15:00 [facility] Results Test Description Test Time [...] of 28-NOV-2021 10:26,-No significant change was found- [address]2022-12-13 04:27:49 Test Item Value Reference Range [...] of 28-NOV-2021 10:26,-No significant change was found- [address]2022-12-13 04:27:49 Test Item Value Reference Range [...] of 28-NOV-2021 10:26,-No significant change was found- [address]2022-12-13 04:27:49 Test Item Value Reference Range Interpretation Comments Ventricular rate (test 71 code = 253) Atrial rate (test code 71 = 255) NE interval (test code 124 = 266) QRSD [...] of 28-NOV-2021 10:26,-No significant change was found- [address]2022-12-13 04:27:49 Test Item Value Reference Range Interpretation Comments Ventricular rate (test 71 code = 253) Atrial rate (test code 71 = 255) NE interval (test code 124 = 266) QRSD [...] of 28-NOV-2021 10:26,-No significant change was found- [address]2022-12-13 04:27:49 Test Item Value Reference Range Interpretation Comments Ventricular rate (test 71 code = 253) Atrial rate (test code 71 = 255) NE interval (test code 124 = 266) QRSD [...] of 28-NOV-2021 10:26,-No significant change was found- [address]2022-12-13 04:27:49 Test Item Value Reference Range Interpretation Comments Ventricular rate (test 71 code = 253) Atrial rate (test code 71 = 255) NE interval (test code 124 = 266) QRSD [...] of 28-NOV-2021 10:26,-No significant change was found- [address]2022-12-13 04:27:49 Test Item Value Reference Range Interpretation Comments Ventricular rate (test 71 code = 253) Atrial rate (test code 71 = 255) NE interval (test code 124 = 266) QRSD [...] of 28-NOV-2021 10:26,-No significant change was found- [address]2022-12-13 04:27:49 Test Item Value Reference Range Interpretation Comments Ventricular rate (test 71 code = 253) Atrial rate (test code 71 = 255) NE interval (test code 124 = 266) QRSD [...] of 28-NOV-2021 10:26,-No significant change was found- [address]2022-12-13 04:27:49 Test Item Value Reference Range Interpretation Comments Ventricular rate (test 71 code = 253) Atrial rate (test code 71 = 255) NE interval (test code 124 = 266) QRSD [...] of 28-NOV-2021 10:26,-No significant change was found- [facility]2022-11-10 23:39:00 Test Item Value Reference Range Interpretation Comments Urine culture (test SEE COMMENT Bacteriu brandon screen code = 4023920) negative. [facility]2022-11-10 23:39:00 Test Item Value Reference Range Interpretation Comments Urine culture (test SEE COMMENT Bacteriu brandon screen code = 9944253) negative. [place] 944612-11-10 23:39:00 Test Item Value Reference Range Interpretation Comments Urine culture (test SEE COMMENT Bacteriu brandon screen code = 5973851) negative. [facility]2022-11-10 23:39:00 Test Item Value Reference Range Interpretation Comments Urine culture (test SEE COMMENT Bacteriu brandon screen code = 8294388) negative. [facility]2022-11-10 23:39:00 Test Item Value Reference Range Interpretation Comments Urine culture (test SEE COMMENT Bacteriu brandon screen code = 8297677) negative. [address]11-10 23:39:00 Test Item Value Reference Range Interpretation Comments Urine culture (test SEE COMMENT Bacteriu brandon screen code = 7472351) negative. [place] [address]-11-10 23:39:00 Test Item Value Reference Range Interpretation Comments Urine culture (test SEE COMMENT Bacteriu brandon screen code = 2967156) negative. [place] 944612-11-10 23:39:00 Test Item Value Reference Range Interpretation Comments Urine culture (test SEE COMMENT Bacteriu brandon screen code = 2300074) negative. [address]11[address]10 23:39:00 Test Item Value Reference Range Interpretation Comments Urine culture (test SEE COMMENT Bacteriu brandon screen code = 4035718) negative. [facility]2022-11-10 23:39:00 Test Item Value Reference Range Interpretation Comments Urine culture (test SEE COMMENT Bacteriu brandon screen code = 1304192) negative. [facility] [id number] 23:39:00 Test Item Value Reference Range Interpretation Comments Urine culture (test SEE COMMENT Bacteriu brandon screen code = 0038769) negative. [facility] [id number] 23:39:00 Test Item Value Reference Range Interpretation Comments Urine culture (test SEE COMMENT Bacteriu brandon screen code = 9662293) negative. [facility] [id number] 23:39:00 Test Item Value Reference Range Interpretation Comments Urine culture (test SEE COMMENT Bacteriu brandon screen code = 1615942) negative. [facility] B surface [id number] 22:17:00 Test Item Value Reference Range Interpretation Comments Hepatitis B surface NON-REACTIVE NON-REACTIVE Ag (test code = 5196-1) RAC (test code = RAC) Performing Organization Information: Site ID: RGA Name: [facility] Address: [address] [place] [address] Director: Rajinder Grant [facility] with reflex to [id number] 22:17:00 Test Item Value Reference Range Interpretation Comments RPR (test code = NON-REACTIVE NON-REACTIVE 14530-4) RAC (test code = Performing Organization RAC) Information: Site ID: RGA Name: [facility] Address: [address] [place] [address] Director: Rajinder Grant [facility] C virus (HCV), quantitative [id number] 22:17:00 Test Item Value Reference Interpretation Comments Range HCV RNA, <15 NOT DETECTED NOT DETECTED quantitative PCR IU/mL (test code = 32870-9) HCV viral log <1.18 NOT DETECTED NOT DETECTED This bhupendra t was (test code = Log IU/mL performed using 64196-7) Real-Time Polym erase [employer]. Reportable Rang e: 15 IU/mL to 100,00 0,000 IU/mL(1.18 Log IU/mL to 8.00 Log IU/ mL). The analytical performance characteristics of thisassay have been determined by [employer]. Th e modifications h ave not been cleare d or approved bythe FDA. This assay has been validated pursu ant to the CLIA regulations and is used for clinic al purposes. For m ore information on this test, go to:http://Everplacesa Spry Hive Industrieson. Sponduu /faq/MVX44w1(Th is link is being provided for informational/e ducat ional purposes only.) RAC (test code = Performing RAC) Organization Information: Site ID: IG [facility]: [facility] Address: [address] [place] [address] Director: Dr. Rajinder Grant [facility] C [id number] 22:17:00 Test Item Value Reference Interpretation Comments Range Hepatitis C Ab (test REACTIVE NON-REACTIVE A code = 43363-7) Signal/cutoff (test >11.00 See_Comment H Based o n this code = 46847-5) result, the sample will be testedf or [...] RAC) Organization Information: Site ID: RGA Name: [facility] Address: [address] [place] [address] Director: Rajinder Grant Lab Interpretation Abnormal (test code = 19988-7) [facility]2 [facility] Ab, [id number] 22:17:00 Test Item Value Reference Interpretation Comments Range HSV 1 IgM NEGATIVE (test code = 26917-3) HSV 2 IgM NEGATIVE REFERENCE RANG E: NEGATIVE HSV (test IgM is detectab le in serum code = from >90% of hi tracey 60487-2) primary HSV inf ection. However, HSV Ig [...] performancechar acteristics have been deter mined by [facility].It has not been cleared or appr luis by FDA. This assay hasb een validated pursuant to the CLIA regulations and isused for clinical purpos es. RAC (test Performing code = Organization [facility]) Information: Site ID: EZ Name: [facility], Address: [address] [place] [address] Director: Crista Camacho MD,PhD,BARI [facility] CenterHIV [facility]/2 antigen/antibody, fourth generation, with reflexes 2022-02-11 22:17:00 Test Item Value Reference Range Interpretation Comments HIV NON-REACTIVE NON-REACTIVE HIV-1 antigen a nd antigen/ant HIV-1/HIV-2 ant ibodies ibody 4th were notdetecte d. There gen (test is no laborator y evidence code = of HIVinfection . PLEASE 50352-4) NOTE: This info rmation has been disclo [...] ad ditional information ple ase refer tohttp://educat ion.Hoffmeister Leuchten.[employer]/ faq/ILD710 (This link is b eing provided for informational/e ducational purposes only.) The performance of this assay has not been clinicallyvalid ated in patients less t lagunas 2 years old. RAC (test Performing code = RAC) Organization Information: Site ID: RGA [facility] Address: [address] [place] [address] Director: Rajinder Parker [facility] CenterHSV 1 and 2 specific Ab [id number] 22:17:00 Test Item Value Reference Interpretation Comments [...] ease refer to http://educatio n.Ques tDiagnostics.co m/faq/ PCC582 (This li nk is being provided for informational/e ducati onal purposes o nly.) RAC (test code = Performing RAC) Organization Information: Site ID: IG Name: [facility] Address: [address] [place] [address] Director: Dr. Rajinder Grant Lab Interpretation Abnormal (test code = 90147-7) [facility] surface [id number] 22:17:00 Test Item Value Reference Range Interpretation Comments Hepatitis B surface NON-REACTIVE NON-REACTIVE Ag (test code = 5196-1) RAC (test code = RAC) Performing Organization Information: Site ID: RGA [facility] Address: [address] [place] [address] Director: Rajinder Grant [facility] CenterRPR with reflex to [id number] 22:17:00 Test Item Value Reference Range Interpretation Comments RPR (test code = NON-REACTIVE NON-REACTIVE 10668-6) RAC (test code = Performing Organization RAC) Information: Site ID: RGA [facility] Address: [address] [place] [address] Director: Rajinder Grant [facility] C virus (HCV), quantitative [id number] 22:17:00 Test Item Value Reference Interpretation Comments Range HCV RNA, <15 NOT DETECTED NOT DETECTED quantitative PCR IU/mL (test code = 28548-8) HCV viral log <1.18 NOT DETECTED NOT DETECTED This bhupendra t was (test code = Log IU/mL performed using 42287-2) Real-Time Polym erase [employer]. Reportable Rang e: 15 IU/mL to 100,00 0,000 IU/mL(1.18 Log IU/mL to 8.00 Log IU/ mL). The analytical performance characteristics of thisassay have been determined by [employer]. Th e modifications h ave not been cleare d or approved bythe FDA. This assay has been validated pursu ant to the CLIA regulations and is used for clinic al purposes. For more information on this test, go to:http://educa tion. Sponduu /faq/UVX69h9(Th is link is being provided for informational/e ducat ional purposes only.) RAC (test code = Performing RAC) Organization Information: Site ID: IG [facility]: [facility] Address: [address] [place] [address] Director: Dr. Rajinder Grant [facility] CenterHepatitis C [id number] 22:17:00 Test Item Value Reference Interpretation Comments Range Hepatitis C Ab (test REACTIVE NON-REACTIVE A code = 52992-7) Signal/cutoff (test >11.00 See_Comment H Based o n this code = 01785-1) result, the sample will be testedf or [...] RAC) Organization Information: Site ID: RGA [facility]: [facility] Address: [address] [place] [address] Director: Rajinder Grant Lab Interpretation Abnormal (test code = 83555-8) [facility]2 combined Ab, [id number] 22:17:00 Test Item Value Reference Interpretation Comments Range HSV 1 IgM NEGATIVE (test code = 46153-8) HSV 2 IgM NEGATIVE REFERENCE RANG E: NEGATIVE HSV (test IgM is detectab le in serum code = from >90% of [place] webb 91169-9) primary HSV inf ection. However, HSV Ig [...] performancechar acteristics have been deter mined by [facility].It has not been cleared or appr luis by FDA. This assay hasb een validated pursuant to the CLIA regulations and isused for clinical purpos es. RAC (test Performing code = Organization RAC) Information: Site ID: EZ Name: [facility], Address: [address] [place] [address] Director: Crista Camacho MD,PhD,BARI [facility]2 antigen/antibody, fourth generation, with reflexes 2022-02-11 22:17:00 Test Item Value Reference Range Interpretation Comments HIV NON-REACTIVE NON-REACTIVE HIV-1 antigen a nd antigen/ant HIV-1/HIV-2 ant ibodies ibody 4th were notdetecte d. There gen (test is no laborator y evidence code = of HIVinfection . PLEASE 99183-0) NOTE: This info rmation has been disclo [...] ad ditional information ple ase refer tohttp://educat ion.Hoffmeister Leuchten.[employer]/ faq/QFL248 (This link is b eing provided for informational/e ducational purposes only.) The performance of this assay has not been clinicallyvalid ated in patients less t lagunas 2 years old. RAC (test Performing code = RAC) Organization Information: Site ID: RGA [facility] Address: [address] [place] [address] Director: Rajinder Grant [facility] CenterHSV 1 and 2 specific Ab [id number] 22:17:00 Test Item Value Reference Interpretation Comments [...] ease refer to http://educatio n.Tri tDiagnostics.co m/faq/ EJD920 (This li nk is being provided for informational/e ducati onal purposes o nly.) RAC (test code = Performing RAC) Organization Information: Site ID: IG Name: [facility] Address: [address] [place] [address] Director: Dr. Rajinder Grant Lab Interpretation Abnormal (test code = 81319-2) [facility] B surface [id number] 22:17:00 Test Item Value Reference Range Interpretation Comments Hepatitis B surface NON-REACTIVE NON-REACTIVE Ag (test code = 5196-1) RAC (test code = RAC) Performing Organization Information: Site ID: RGA [facility] Address: [address] [place] [address] Director: Rajinder Grant [facility] with reflex to [id number] 22:17:00 Test Item Value Reference Range Interpretation Comments RPR (test code = NON-REACTIVE NON-REACTIVE 64340-7) RAC (test code = Performing Organization RAC) Information: Site ID: RGA [facility] Address: [address] [place] [address] Director: Rajinder Grant [facility] C virus (HCV), quantitative [id number] 22:17:00 Test Item Value Reference Interpretation Comments Range HCV RNA, <15 NOT DETECTED NOT DETECTED quantitative PCR IU/mL (test code = 58603-0) HCV viral log <1.18 NOT DETECTED NOT DETECTED This bhupendra t was (test code = Log IU/mL performed using 22949-8) Real-Time Polym erase [employer]. Reportable Rang e: 15 IU/mL to 100,00 0,000 IU/mL(1.18 Log IU/mL to 8.00 Log IU/ mL). The analytical performance characteristics of thisassay have been determined by [employer]. Th e modifications h ave not been cleare d or approved bythe FDA. This assay has been validated pursu ant to the CLIA regulations and is used for clinic al purposes. For m ore information on this test, go to:http://educa tion. Sponduu /faq/GVQ03q0( is link is being provided for informational/e ducat ional purposes only.) RAC (test code = Performing RAC) Organization Information: Site ID: IG [facility] Address: [address] [place] [address] Director: Dr. Rajinder Grant [facility] C [id number] 22:17:00 Test Item Value Reference Interpretation Comments Range Hepatitis C Ab (test REACTIVE NON-REACTIVE A code = 25593-5) Signal/cutoff (test >11.00 See_Comment H Based o n this code = 88241-8) result, the sample will be testedf or [...] RAC) Organization Information: Site ID: RGA Name: [facility] Address: [address] [place] [address] Director: Rajinder Grant Lab Interpretation Abnormal (test code = 48770-6) [facility]2 combined Ab, [id number] 22:17:00 Test Item Value Reference Interpretation Comments Range HSV 1 IgM NEGATIVE (test code = 99808-0) HSV 2 IgM NEGATIVE REFERENCE RANG E: NEGATIVE HSV (test IgM is detectab le in serum code = from >90% of [facility] 49737-6) primary HSV inf ection. However, HSV Ig [...] performancechar acteristics have been deter mined by [facility].It has not been cleared or appr luis by FDA. This assay hasb een validated pursuant to the CLIA regulations and isused for clinical purpos es. RAC (test Performing code = Organization RAC) Information: Site ID: EZ Name: [facility], Address: [address] [place] [address] Director: Crista Camacho MD,PhD,BARI [facility] CenterHIV 1/2 antigen/antibody, fourth generation, with reflexes 2022-02-11 22:17:00 Test Item Value Reference Range Interpretation Comments HIV NON-REACTIVE NON-REACTIVE HIV-1 antigen a nd antigen/ant HIV-1/HIV-2 ant ibodies ibody 4th were notdetecte d. There gen (test is no laborator y evidence code = of HIVinfection . PLEASE 61368-0) NOTE: This info rmation has been disclo [...] ad ditional information ple ase refer tohttp://educat ion.[employer] faq/YCS584 (This link is b eing provided for informational/e ducational purposes only.) The performance of this assay has not been clinicallyvalid ated in patients less t lagunas 2 years old. RAC (test Performing code = RAC) Organization Information: Site ID: RGA [facility] Address: [address] [place] [address] Director: Rajinder Grant [facility] CenterHSV 1 and 2 specific Ab [id number] 22:17:00 Test Item Value Reference Interpretation Comments [...] ease refer to http://educatio n.Ques tDiagnostics.co m/faq/ DWU475 (This li nk is being provided for informational/e ducati onal purposes o nly.) RAC (test code = Performing RAC) Organization Information: Site ID: IG Name: [facility] Address: [address] [place] [address] Director: Dr. Rajinder Grant Lab Interpretation Abnormal (test code = 41062-8) [facility] surface [id number] 22:17:00 Test Item Value Reference Range Interpretation Comments Hepatitis B surface NON-REACTIVE NON-REACTIVE Ag (test code = 5196-1) RAC (test code = RAC) Performing Organization Information: Site ID: RGA [facility] Address: [address] [place] [address] Director: Rajinder Grant [facility] CenterRP with reflex to [id number] 22:17:00 Test Item Value Reference Range Interpretation Comments RPR (test code = NON-REACTIVE NON-REACTIVE 85290-9) RAC (test code = Performing Organization RAC) Information: Site ID: RGA [facility] Address: [address] [place] [address] Director: Rajinder Grant [facility] C virus (HCV), quantitative [id number] 22:17:00 Test Item Value Reference Interpretation Comments Range HCV RNA, <15 NOT DETECTED NOT DETECTED quantitative PCR IU/mL (test code = 40303-8) HCV viral log <1.18 NOT DETECTED NOT DETECTED This bhupendra t was (test code = Log IU/mL performed using 49497-6) Real-Time Polym erase ChainReaction. Reportable Rang e: 15 IU/mL to 100,00 0,000 IU/mL(1.18 Log IU/mL to 8.00 Log IU/ mL). The analytical performance characteristics of thisassay have been determined by [employer]. Th e modifications h ave not been cleare d or approved bythe FDA. This assay has been validated pursu ant to the CLIA regulations and is used for clinic al purposes. For m ore information on this test, go to:http://educa tion. Sponduu /faq/UFC42c6(Th is link is being provided for informational/e ducat ional purposes only.) RAC (test code = Performing RAC) Organization Information: Site ID: IG [facility]: [facility] Address: [address] [place] [address] Director: Dr. Rajinder Grant [facility] CenterHepatitis C [id number] 22:17:00 Test Item Value Reference Interpretation Comments Range Hepatitis C Ab (test REACTIVE NON-REACTIVE A code = 22723-2) Signal/cutoff (test >11.00 See_Comment H Based o n this code = 22379-5) result, the sample will be testedf or [...] RAC) Organization Information: Site ID: RGA Name: [facility] Address: [place] [address] Director: Rajinder Grant Lab Interpretation Abnormal (test code = 05096-8) [facility]2 combined Ab, [id number] 22:17:00 Test Item Value Reference Interpretation Comments Range HSV 1 IgM NEGATIVE (test code = 03692-8) HSV 2 IgM NEGATIVE REFERENCE RANG E: NEGATIVE HSV (test IgM is detectab le in serum code = from >90% of [facility] 66665-3) primary HSV inf ection. However, HSV Ig [...] performancechar acteristics have been deter mined by [facility].It has not been cleared or appr luis by FDA. This assay hasb een validated pursuant to the CLIA regulations and isused for clinical purpos es. RAC (test Performing code = Organization RAC) Information: Site ID: EZ Name: [facility], Address: [address] [place] [address] Director: Crista Camacho MD,PhD,BARI [facility] CenterHIV 1/2 antigen/antibody, fourth generation, with reflexes 2022-02-11 22:17:00 Test Item Value Reference Range Interpretation Comments HIV NON-REACTIVE NON-REACTIVE HIV-1 antigen a nd antigen/ant HIV-1/HIV-2 ant ibodies ibody 4th were notdetecte d. There gen (test is no laborator y evidence code = of HIVinfection . PLEASE 94201-3) NOTE: This info rmation has been disclo [...] ad ditional information ple ase refer tohttp://educat ion.Hoffme[employer] Leuchten.[employer]/ faq/SNO347 (This link is b eing provided for informational/e ducational purposes only.) The performance of this assay has not been clinicallyvalid ated in patients less t lagunas 2 years old. RAC (test Performing code = RAC) Organization Information: Site ID: RGA Name: [facility] Address: [address] [place] [address] Director: Rajinder Grant [facility] CenterHSV 1 and 2 specific Ab [id number] 22:17:00 Test Item Value Reference Interpretation Comments [...] ease refer to http://educatio n.Ques tDiagnostics.co m/faq/ UUA936 (This li nk is being provided for informational/e ducati onal purposes o nly.) RAC (test code = Performing RAC) Organization Information: Site ID: IG Name: [facility] Address: [address] [place] [address] Director: Dr. Rajinder Grant Lab Interpretation Abnormal (test code = 27845-5) [facility] B surface [id number] 22:17:00 Test Item Value Reference Range Interpretation Comments Hepatitis B surface NON-REACTIVE NON-REACTIVE Ag (test code = 5196-1) RAC (test code = RAC) Performing Organization Information: Site ID: RGA [facility]: [facility] Address: [address] [place] [address] Director: Rajinder Grant [facility] CenterRPR with reflex to [id number] 22:17:00 Test Item Value Reference Range Interpretation Comments RPR (test code = NON-REACTIVE NON-REACTIVE 76102-1) RAC (test code = Performing Organization RAC) Information: Site ID: RGA [facility] Address: [address] [place] [address] Director: Rajinder Grant [facility] C virus (HCV), quantitative [id number] 22:17:00 Test Item Value Reference Interpretation Comments Range HCV RNA, <15 NOT DETECTED NOT DETECTED quantitative PCR IU/mL (test code = 18492-7) HCV viral log <1.18 NOT DETECTED NOT DETECTED This bhupendra t was (test code = Log IU/mL performed using 66462-4) Real-Time Polym erase [employer]Reaction. Reportable Rang e: 15 IU/mL to 100,00 0,000 IU/mL(1.18 Log IU/mL to 8.00 Log IU/ mL). The analytical performance characteristics of thisassay have been determined by [employer]. Th e modifications h ave not been cleare d or approved bythe FDA. This assay has been validated pursu ant to the CLIA regulations and is used for clinic al purposes. For m ore information on this test, go to:http://educa tion. Sponduu /faq/RWK62z6(Th is link is being provided for informational/e ducat ional purposes only.) RAC (test code = Performing RAC) Organization Information: Site ID: IG Name: [facility] Address: [address] [place] [address] Director: Dr. Rajinder Grant [facility] CenterHepatitis C [id number] 22:17:00 Test Item Value Reference Interpretation Comments Range Hepatitis C Ab (test REACTIVE NON-REACTIVE A code = 20945-4) Signal/cutoff (test >11.00 See_Comment H Based o n this code = 15043-9) result, the sample will be testedf or [...] RAC) Organization Information: Site ID: RGA [facility]: [facility] Address: [address] [place] [address] Director: Rajinder Grant Lab Interpretation Abnormal (test code = 12606-8) [facility] CenterHSV type 1/2 combined Ab, [id number] 22:17:00 Test Item Value Reference Interpretation Comments Range HSV 1 IgM NEGATIVE (test code = 37662-1) HSV 2 IgM NEGATIVE REFERENCE RANG E: NEGATIVE HSV (test IgM is detectab le in serum code = from >90% [facility] [address]48-1) primary HSV inf ection. However, HSV Ig [...] performancechar acteristics have been deter mined by [facility].It has not been cleared or appr luis by FDA. This assay hasb een validated pursuant to the CLIA regulations and isused for clinical purpos es. RAC (test Performing code = Organization RAC) Information: Site ID: EZ Name: [facility], Address: [address] [place] [address] Director: Crista Camacho MD,PhD,BARI [facility] CenterHIV 1/2 antigen/antibody, fourth generation, with reflexes 2022-02-11 22:17:00 Test Item Value Reference Range Interpretation Comments HIV NON-REACTIVE NON-REACTIVE HIV-1 antigen a nd antigen/ant HIV-1/HIV-2 ant ibodies ibody 4th were notdetecte d. There gen (test is no laborator y evidence code = of HIVinfection . PLEASE 83245-6) NOTE: This info rmation has been disclo [...] ad ditional information ple ase refer tohttp://educat ion.Hoffme[employer]uch[employer]/ faq/JNE945 (This link is b eing provided for informational/e ducational purposes only.) The performance of this assay has not been clinicallyvalid ated in patients less t lagunas 2 years old. RAC (test Performing code = RAC) Organization Information: Site ID: RGA [facility] Address: [address] [place] [address] Director: Rajinder Grant [facility] CenterHSV 1 and 2 specific Ab [id number] 22:17:00 Test Item Value Reference Interpretation Comments [...] ease refer to http://educatio n.Tri tDiagnostics.co m/faq/ XHV933 (This li nk is being provided for informational/e ducati onal purposes o nly.) RAC (test code = Performing RAC) Organization Information: Site ID: IG Name: [facility] Lab Address: [address] [place] [address] Director: Dr. Rajinder Grant Lab Interpretation Abnormal (test code = 68819-0) [facility] CenterHepatitis B surface [id number] 22:17:00 Test Item Value Reference Range Interpretation Comments Hepatitis B surface NON-REACTIVE NON-REACTIVE Ag (test code = 5196-1) RAC (test code = RAC) Performing Organization Information: Site ID: RGA Name: [facility] Address: [address] [place] [address] Director: Rajinder Grant [facility] CenterRPR with reflex to [id number] 22:17:00 Test Item Value Reference Range Interpretation Comments RPR (test code = NON-REACTIVE NON-REACTIVE 00236-7) RAC (test code = Performing Organization RAC) Information: Site ID: RGA [facility] Address: [address] [place] [address] Director: Rajinder Parker [facility] C virus (HCV), quantitative [id number] 22:17:00 Test Item Value Reference Interpretation Comments Range HCV RNA, <15 NOT DETECTED NOT DETECTED quantitative PCR IU/mL (test code = 09665-7) HCV viral log <1.18 NOT DETECTED NOT DETECTED This bhupendra t was (test code = Log IU/mL performed using 32417-6) Real-Time Polym [employer]. Reportable Rang e: 15 IU/mL to 100,00 0,000 IU/mL(1.18 Log IU/mL to 8.00 Log IU/ mL). The analytical performance characteristics of thisassay have been determined by [employer]. Th e modifications h ave not been cleare d or approved bythe FDA. This assay has been validated pursu ant to the CLIA regulations and is used for clinic al purposes. For m ore information on this test, go to:http://educa tion. Sponduu /faq/ILJ27u8(Th is link is being provided for informational/e ducat ional purposes only.) RAC (test code = Performing RAC) Organization Information: Site ID: IG [facility]: [facility] Address: [address] [place] [address] Director: Dr. Rajinder Grant [facility] C [id number] 22:17:00 Test Item Value Reference Interpretation Comments Range Hepatitis C Ab (test REACTIVE NON-REACTIVE A code = 63697-9) Signal/cutoff (test >11.00 See_Comment H Based o n this code = 44390-3) result, the sample will be testedf or [...] RAC) Organization Information: Site ID: RGA Name: [facility] Address: [address] [place] [address] Director: Rajinder Grant Lab Interpretation Abnormal (test code = 18809-8) [facility] CenterHSV type 1/2 combined Ab, [id number] 22:17:00 Test Item Value Reference Interpretation Comments Range HSV 1 IgM NEGATIVE (test code = 62223-3) HSV 2 IgM NEGATIVE REFERENCE RANG E: NEGATIVE HSV (test IgM is detectab le in serum code = from >90% of [facility] 16657-9) primary HSV inf ection. However, HSV Ig [...] performancechar acteristics have been deter mined by [facility].It has not been cleared or appr luis by FDA. This assay hasb een validated pursuant to the CLIA regulations and isused for clinical purpos es. RAC (test Performing code = Organization RAC) Information: Site ID: EZ Name: [facility], Address: [address] [place] [address] Director: Crista Camacho MD,PhD,BARI [facility] CenterHIV 1/2 antigen/antibody, fourth generation, with reflexes 2022-02-11 22:17:00 Test Item Value Reference Range Interpretation Comments HIV NON-REACTIVE NON-REACTIVE HIV-1 antigen a nd antigen/ant HIV-1/HIV-2 ant ibodies ibody 4th were notdetecte d. There gen (test is no laborator y evidence code = of HIVinfection . PLEASE 51049-7) NOTE: This info rmation has been disclo [...] ad ditional information ple ase refer tohttp://educat ion.[employer] faq/IHA385 (This link is b eing provided for informational/e ducational purposes only.) The performance of this assay has not been clinicallyvalid ated in patients less t lagunas 2 years old. RAC (test Performing code = RAC) Organization Information: Site ID: RGA [facility] Address: [address] [place] [address] Director: Rajinder Grant [facility]V 1 and 2 specific Ab [id number] 22:17:00 Test Item Value Reference Interpretation Comments [...] information, pl ease refer to http://educatio n.Ques tDiagnostics.CoWare m/faq/ WSP611 (This li nk is being provided for informational/e ducati onal purposes o nly.) RAC (test code = Performing RAC) Organization Information: Site ID: IG Name: [facility] Address: [address] [place] [address] Director: Dr. aRjinder Grant Lab Interpretation Abnormal (test code = 24065-3) [facility] B surface [id number] 22:17:00 Test Item Value Reference Range Interpretation Comments Hepatitis B surface NON-REACTIVE NON-REACTIVE Ag (test code = 5196-1) RAC (test code = RAC) Performing Organization Information: Site ID: RGA [facility] Address: [address] [place] [address] Director: Rajinder Grant [facility] CenterRP with reflex to [id number] 22:17:00 Test Item Value Reference Range Interpretation Comments RPR (test code = NON-REACTIVE NON-REACTIVE 67587-8) RAC (test code = Performing Organization RAC) Information: Site ID: RGA [facility] Address: [address] [place] [address] Director: Rajinder Grant [facility] C virus (HCV), quantitative [id number] 22:17:00 Test Item Value Reference Interpretation Comments Range HCV RNA, <15 NOT DETECTED NOT DETECTED quantitative PCR IU/mL (test code = 02061-0) HCV viral log <1.18 NOT DETECTED NOT DETECTED This bhupendra t was (test code = Log IU/mL performed using 04978-2) Real-Time Polym [employer]. Reportable Rang e: 15 IU/mL to 100,00 0,000 IU/mL(1.18 Log IU/mL to 8.00 Log IU/ mL). The analytical performance characteristics of thisassay have been determined by [employer]. Th e modifications h ave not been cleare d or approved bythe FDA. This assay has been validated pursu ant to the CLIA regulations and is used for clinic al purposes. For m ore information on this test, go to:http://educa tion. Sponduu /faq/URL94y0(Th is link is being provided for informational/e ducat ional purposes only.) RAC (test code = Performing RAC) Organization Information: Site ID: IG Name[facility] Address: [address] [place] [address] Director: Dr. Rajinder Grant [facility] CenterHepatitis C [id number] 22:17:00 Test Item Value Reference Interpretation Comments Range Hepatitis C Ab (test REACTIVE NON-REACTIVE A code = 90623-2) Signal/cutoff (test >11.00 <=1.00 H Based o n this code = 61491-8) result, the sample will be testedf or HCV RNA by a Nucleic Acid Amplification T est (NAAT)to determ ine if the patient has a current activeinfection . RAC (test code = Performing RAC) Organization Information: Site ID: RGA Name: [facility] Lab Address: [address] [place] [address] Director: Rajinder Grant Lab Interpretation Abnormal (test code = 47179-0) [facility] type 1/2 combined Ab, [id number] 22:17:00 Test Item Value Reference Interpretation Comments Range HSV 1 IgM NEGATIVE (test code = 55702-5) HSV 2 IgM NEGATIVE REFERENCE RANG E: NEGATIVE HSV (test IgM is detectab le in serum code = from >90% of [facility] 58377-0) primary HSV inf ection. However, HSV Ig [...] performancechar acteristics have been deter mined by [facility].It has not been cleared or appr luis by FDA. This assay hasb een validated pursuant to the CLIA regulations and isused for clinical purpos es. RAC (test Performing code = Organization RAC) Information: Site ID: EZ Name: [facility], Address: [address] [place] [address] Director: Crista Camacho MD,PhD,BARI [facility]2 antigen/antibody, fourth generation, with reflexes 2022-02-11 22:17:00 Test Item Value Reference Range Interpretation Comments HIV NON-REACTIVE NON-REACTIVE HIV-1 antigen a nd antigen/ant HIV-1/HIV-2 ant ibodies ibody 4th were notdetecte d. There gen (test is no laborator y evidence code = of HIVinfection . PLEASE 54292-9) NOTE: This info rmation has been disclo [...] ad ditional information ple ase refer tohttp://educat ion.[employer] faq/QSN619 (This link is b eing provided for informational/e ducational purposes only.) The performance of this assay has not been clinicallyvalid ated in patients less t lagunas 2 years old. RAC (test Performing code = RAC) Organization Information: Site ID: RGA [facility] Address: [address] [place] [address] Director: Rajinder Grant [facility]V 1 and 2 specific Ab [id number] 22:17:00 Test Item Value Reference Interpretation Comments [...] additional information, pl ease refer to http://educatio Radha tDiagnostics.co m/faq/ WPF806 (This li nk is being provided for informational/e ducati onal purposes o nly.) RAC (test code = Performing RAC) Organization Information: Site ID: IG Name: [facility] Address: [address] [place] [address] Director: Dr. Rajinder Grant Lab Interpretation Abnormal (test code = 04691-4) [facility] surface [id number] 22:17:00 Test Item Value Reference Range Interpretation Comments Hepatitis B surface NON-REACTIVE NON-REACTIVE Ag (test code = 5196-1) RAC (test code = RAC) Performing Organization Information: Site ID: RGA [facility] Address: [address] [place] [address] Director: Rajinder Grant [facility] CenterRP with reflex to [id number] 22:17:00 Test Item Value Reference Range Interpretation Comments RPR (test code = NON-REACTIVE NON-REACTIVE 41953-9) RAC (test code = Performing Organization RAC) Information: Site ID: RGA [facility] Address: [address] [place] [address] Director: Rajinder Grant [facility] C virus (HCV), quantitative [id number] 22:17:00 Test Item Value Reference Interpretation Comments Range HCV RNA, <15 NOT DETECTED NOT DETECTED quantitative PCR IU/mL (test code = 53093-6) HCV viral log <1.18 NOT DETECTED NOT DETECTED This bhupendra t was (test code = Log IU/mL performed using 62228-6) Real-Time Polym erase [employer]. Reportable Rang e: 15 IU/mL to 100,00 0,000 IU/mL(1.18 Log IU/mL to 8.00 Log IU/ mL). The analytical performance characteristics of thisassay have been determined by [employer]. Th e modifications h ave not been cleare d or approved bythe FDA. This assay has been validated pursu ant to the CLIA regulations and is used for clinic al purposes. For m ore information on this test, go to:http://educa dylon. Sponduu /faq/OIU09w1(Th is link is being provided for informational/e ducat ional purposes only.) RAC (test code = Performing RAC) Organization Information: Site ID: IG [facility] Address: [address] [place] [address] Director: Dr. Rajinder Grant [facility] C [id number] 22:17:00 Test Item Value Reference Interpretation Comments Range Hepatitis C Ab (test REACTIVE NON-REACTIVE A code = 38853-5) Signal/cutoff (test >11.00 <=1.00 H Based o n this code = 73797-9) result, the sample will be testedf or HCV RNA by a Nucleic Acid Amplification T est (NAAT)to determ ine if the patient has a current activeinfection . RAC (test code = Performing RAC) Organization Information: Site ID: RGA [facility] Address: [address] [place] [address] Director: Rajinder Grant Lab Interpretation Abnormal (test code = 69697-5) [facility] type 1/2 combined Ab, [id number] 22:17:00 Test Item Value Reference Interpretation Comments Range HSV 1 IgM NEGATIVE (test code = 37033-3) HSV 2 IgM NEGATIVE REFERENCE RANG E: NEGATIVE HSV (test IgM is detectab le in serum code = from >90% of hi tracey 46007-1) primary HSV inf ection. However, HSV Ig [...] performancechar acteristics have been deter mined by [facility].It has not been cleared or appr luis by FDA. This assay hasb een validated pursuant to the CLIA regulations and isused for clinical purpos es. RAC (test Performing code = Organization RAC) Information: Site ID: EZ Name: [facility], Address: [address] [place] [address] Director: Crista Camacho MD,PhD,BARI [facility] CenterHIV 1/2 antigen/antibody, fourth generation, with reflexes 2022-02-11 22:17:00 Test Item Value Reference Range Interpretation Comments HIV NON-REACTIVE NON-REACTIVE HIV-1 antigen a nd antigen/ant HIV-1/HIV-2 ant ibodies ibody 4th were notdetecte d. There gen (test is no laborator y evidence code = of HIVinfection . PLEASE 69457-0) NOTE: This info rmation has been disclo [...] ad ditional information ple ase refer tohttp://educat ion.Hoffme[employer]uch[employer]/ faq/WGA690 (This link is b eing provided for informational/e ducational purposes only.) The performance of this assay has not been clinicallyvalid ated in patients less t lagunas 2 years old. RAC (test Performing code = RAC) Organization Information: Site ID: RGA [facility] Address: [address] [place] [address] Director: Rajinder Grant [facility] CenterHSV 1 and 2 specific Ab [id number] 22:17:00 Test Item Value Reference Interpretation Comments [...] ease refer to http://educatio nReza tDiagnostics.co m/faq/ PWE729 (This li nk is being provided for informational/e ducati onal purposes o nly.) RAC (test code = Performing RAC) Organization Information: Site ID: IG Name: [facility] Address: [address] [place] [address] Director: Dr. Rajinder Grant Lab Interpretation Abnormal (test code = 82173-0) [facility]Her[facility] hospitaltis B surface [id number] 22:17:00 Test Item Value Reference Range Interpretation Comments Hepatitis B surface NON-REACTIVE NON-REACTIVE Ag (test code = 5196-1) RAC (test code = RAC) Performing Organization Information: Site ID: RGA [facility] Address: [address] [place] [address] Director: Rajinder Grant [facility] CenterRPR with reflex to [id number] 22:17:00 Test Item Value Reference Range Interpretation Comments RPR (test code = NON-REACTIVE NON-REACTIVE 54569-6) RAC (test code = Performing Organization RAC) Information: Site ID: RGA [facility] Address: [address] [place] [address] Director: Rajinder Grant [facility] C virus (HCV), quantitative [id number] 22:17:00 Test Item Value Reference Interpretation Comments Range HCV RNA, <15 NOT DETECTED NOT DETECTED quantitative PCR IU/mL (test code = 25677-4) HCV viral log <1.18 NOT DETECTED NOT DETECTED This bhupendra t was (test code = Log IU/mL performed using 22338-4) Real-Time Polym erase ChainReaction. Reportable Rang e: 15 IU/mL to 100,00 0,000 IU/mL(1.18 Log IU/mL to 8.00 Log IU/ mL). The analytical performance characteristics of thisassay have been determined by [employer]. Th e modifications h ave not been cleare d or approved bythe FDA. This assay has been validated pursu ant to the CLIA regulations and is used for clinic al purposes. For m ore information on this test, go to:http://Everplacesa Spry Hive Industrieson. Sponduu /faq/AGH95q7(Th is link is being provided for informational/e ducat ional purposes only.) RAC (test code = Performing RAC) Organization Information: Site ID: IG [facility] Address: [address] [place] [address] Director: Dr. Rajinder Grant [facility] Center[facility]atitis C [id number] 22:17:00 Test Item Value Reference Interpretation Comments Range Hepatitis C Ab (test REACTIVE NON-REACTIVE A code = 30429-1) Signal/cutoff (test >11.00 <=1.00 H Based o n this code = 57176-1) result, the sample will be testedf or HCV RNA by a Nucleic Acid Amplification T est (NAAT)to determ ine if the patient has a current activeinfection . RAC (test code = Performing RAC) Organization Information: Site ID: RGA [facility] Address: [address] [place] [address] Director: Rajinder Grant Lab Interpretation Abnormal (test code = 92159-0) [facility] CenterHSV type 1/2 combined Ab, [id number] 22:17:00 Test Item Value Reference Interpretation Comments Range HSV 1 IgM NEGATIVE (test code = 25583-0) HSV 2 IgM NEGATIVE REFERENCE RANG E: NEGATIVE HSV (test IgM is detectab le in serum code = from >90% of hi tracey 23487-4) primary HSV inf ection. However, HSV Ig [...] performancechar acteristics have been deter mined by [facility].It has not been cleared or appr luis by FDA. This assay hasb een validated pursuant to the CLIA regulations and isused for clinical purpos es. RAC (test Performing code = Organization RAC) Information: Site ID: EZ Name: [facility], Address: [address] [place] [address] Director: Crista Camacho MD,PhD,BARI [facility] CenterHIV 1/2 antigen/antibody, fourth generation, with reflexes 2022-02-11 22:17:00 Test Item Value Reference Range Interpretation Comments HIV NON-REACTIVE NON-REACTIVE HIV-1 antigen a nd antigen/ant HIV-1/HIV-2 ant ibodies ibody 4th were notdetecte d. There gen (test is no laborator y evidence code = of HIVinfection . PLEASE 34007-9) NOTE: This info rmation has been disclo [...] ad ditional information ple ase refer tohttp://educat ion.Hoffmeister Leuchten.[employer]/ faq/DVM156 (This link is b eing provided for informational/e ducational purposes only.) The performance of this assay has not been clinicallyvalid ated in patients less t lagunas 2 years old. RAC (test Performing code = RAC) Organization Information: Site ID: RGA [facility] Address: [address] [place] [address] Director: Rajinder Grant [facility] CenterHSV 1 and 2 specific Ab [id number] 22:17:00 Test Item Value Reference Interpretation Comments [...] ease refer to http://educatio n.Ques tDiagnostics.co m/faq/ IJR369 (This li nk is being provided for informational/e ducati onal purposes o nly.) RAC (test code = Performing RAC) Organization Information: Site ID: IG Name: [facility] Address: [address] [place] [address] Director: Dr. Rajinder Grant Lab Interpretation Abnormal (test code = 52459-5) [facility] CenterHepatitis B surface [id number] 22:17:00 Test Item Value Reference Range Interpretation Comments Hepatitis B surface NON-REACTIVE NON-REACTIVE Ag (test code = 5196-1) RAC (test code = RAC) Performing Organization Information: Site ID: RGA [facility] Address: [address] [place] [address] Director: Rajinder Grant [facility] CenterRP with reflex to [id number] 22:17:00 Test Item Value Reference Range Interpretation Comments RPR (test code = NON-REACTIVE NON-REACTIVE 14412-6) RAC (test code = Performing Organization RAC) Information: Site ID: BEBA [facility] Address: [address] [place] [address] Director: Rajinder Grant [facility] C virus (HCV), quantitative [id number] 22:17:00 Test Item Value Reference Interpretation Comments Range HCV RNA, <15 NOT DETECTED NOT DETECTED quantitative PCR IU/mL (test code = 40045-4) HCV viral log <1.18 NOT DETECTED NOT DETECTED This bhupendra t was (test code = Log IU/mL performed using 64356-9) Real-Time Polym erase ChainReaction. Reportable Rang e: 15 IU/mL to 100,00 0,000 IU/mL(1.18 Log IU/mL to 8.00 Log IU/ mL). The analytical performance characteristics of thisassay have been determined by [employer]. Th e modifications h ave not been cleare d or approved bythe FDA. This assay has been validated pursu ant to the CLIA regulations and is used for clinic al purposes. For m ore information on this test, go to:http://educa tion. Sponduu /faq/RIM54k0(Th is link is being provided for informational/e ducat ional purposes only.) RAC (test code = Performing RAC) Organization Information: Site ID: IG [facility]: [facility] Address: [address] [place] [address] Director: Dr. Rajinder Grant [facility] C [id number] 22:17:00 Test Item Value Reference Interpretation Comments Range Hepatitis C Ab (test REACTIVE NON-REACTIVE A code = 65884-5) Signal/cutoff (test >11.00 <=1.00 H Based o n this code = 51029-3) result, the sample will be testedf or HCV RNA by a Nucleic Acid Amplification T est (NAAT)to determ ine if the patient has a current activeinfection . RAC (test code = Performing RAC) Organization Information: Site ID: RGA [facility] Address: [address] [place] [address] Director: Rajinder Grant Lab Interpretation Abnormal (test code = 79692-4) [facility], [id number] 22:17:00 Test Item Value Reference Interpretation Comments Range HSV 1 IgM NEGATIVE (test code = 17945-5) HSV 2 IgM NEGATIVE REFERENCE RANG E: NEGATIVE HSV (test IgM is detectab le in serum code = from >90% of pa tracey 69419-9) primary HSV inf ection. However, HSV Ig [...] performancechar acteristics have been deter mined by [facility].It has not been cleared or appr luis by FDA. This assay hasb een validated pursuant to the CLIA regulations and isused for clinical purpos es. RAC (test Performing code = Organization RAC) Information: Site ID: EZ Name: [facility], Address: [address] [place] [address] Director: Crista Camacho MD,PhD,BARI [facility]HIV [facility]/2 antigen/antibody, fourth generation, with reflexes 2022-02-11 22:17:00 Test Item Value Reference Range Interpretation Comments HIV NON-REACTIVE NON-REACTIVE HIV-1 antigen a nd antigen/ant HIV-1/HIV-2 ant ibodies ibody 4th were notdetecte d. There gen (test is no laborator y evidence code = of HIVinfection . PLEASE 96079-1) NOTE: This info rmation has been disclo [...] ad ditional information ple ase refer tohttp://educat ion.[employer]./ faq/LZJ245 (This link is b eing provided for informational/e ducational purposes only.) The performance of this assay has not been clinicallyvalid ated in patients less t lagunas 2 years old. RAC (test Performing code = RAC) Organization Information: Site ID: RGA [facility] Address: [address] [place] [address] Director: Rajinder Grant [facility] HospitalV 1 and 2 specific Ab [id number] 22:17:00 Test Item Value Reference Interpretation Comments [...] ease refer to http://educatio n.Ques tDiagnostics.co m/faq/ ZAR615 (This li nk is being provided for informational/e ducati onal purposes o nly.) RAC (test code = Performing RAC) Organization Information: Site ID: IG Name: [facility] Address: [address] [place] [address] Director: Dr. Rajinder Grant Lab Interpretation Abnormal (test code = 26222-9) [facility] B surface [id number] 22:17:00 Test Item Value Reference Range Interpretation Comments Hepatitis B surface NON-REACTIVE NON-REACTIVE Ag (test code = 5196-1) RAC (test code = RAC) Performing Organization Information: Site ID: BEBA [facility]: [facility] Address: [address] [place] [address] Director: Rajinder Grant [facility] Hospital[facility]PR with reflex to [id number] 22:17:00 Test Item Value Reference Range Interpretation Comments RPR (test code = NON-REACTIVE NON-REACTIVE 61770-6) RAC (test code = Performing Organization RAC) Information: Site ID: RGA [facility] Address: [address] [place] [address] Director: Rajinder Grant [facility] C virus (HCV), quantitative [id number] 22:17:00 Test Item Value Reference Interpretation Comments Range HCV RNA, <15 NOT DETECTED NOT DETECTED quantitative PCR IU/mL (test code = 58144-8) HCV viral log <1.18 NOT DETECTED NOT DETECTED This bhupendra t was (test code = Log IU/mL performed using 57164-1) Real-Time Polym erase ChainReaction. Reportable Rang e: 15 IU/mL to 100,00 0,000 IU/mL(1.18 Log IU/mL to 8.00 Log IU/ mL). The analytical performance characteristics of thisassay have been determined by [employer]. Th e modifications h ave not been cleare d or approved bythe FDA. This assay has been validated pursu ant to the CLIA regulations and is used for clinic al purposes. For m ore information on this test, go to:http://educa tion. Sponduu /faq/VGG81j1(Th is link is being provided for informational/e ducat ional purposes only.) RAC (test code = Performing RAC) Organization Information: Site ID: IG Name[facility] Address: [address] [place] [address] Director: Dr. Rajinder Grant [facility] C [id number] 22:17:00 Test Item Value Reference Interpretation Comments Range Hepatitis C Ab (test REACTIVE NON-REACTIVE A code = 56927-7) Signal/cutoff (test >11.00 <=1.00 H Based o n this code = 03908-8) result, the sample will be testedf or HCV RNA by a Nucleic Acid Amplification T est (NAAT)to determ ine if the patient has a current activeinfection . RAC (test code = Performing RAC) Organization Information: Site ID: RGA Name: [facility] Address: [address] [place] [address] Director: Rajinder Grant Lab Interpretation Abnormal (test code = 61569-1) [facility] CenterHSV type 1/2 combined Ab, [id number] 22:17:00 Test Item Value Reference Interpretation Comments Range HSV 1 IgM NEGATIVE (test code = 81068-9) HSV 2 IgM NEGATIVE REFERENCE RANG E: NEGATIVE HSV (test IgM is detectab le in serum code = from >90% of [facility] 83333-9) primary HSV inf ection. However, HSV Ig [...] performancechar acteristics have been deter mined by [facility].It has not been cleared or appr luis by FDA. This assay hasb een validated pursuant to the CLIA regulations and isused for clinical purpos es. RAC (test Performing code = Organization RAC) Information: Site ID: EZ Name: [facility], Address: [address] [place] [address] Director: Crista Camacho MD,PhD,BARI [facility] CenterHIV 1/2 antigen/antibody, fourth generation, with reflexes 2022-02-11 22:17:00 Test Item Value Reference Range Interpretation Comments HIV NON-REACTIVE NON-REACTIVE HIV-1 antigen a nd antigen/ant HIV-1/HIV-2 ant ibodies ibody 4th were notdetecte d. There gen (test is no laborator y evidence code = of HIVinfection . PLEASE 41612-6) NOTE: This info rmation has been disclo [...] ad ditional information ple ase refer tohttp://educat ion.[employer] faq/UNB422 (This link is b eing provided for informational/e ducational purposes only.) The performance of this assay has not been clinicallyvalid ated in patients less t lagunas 2 years old. RAC (test Performing code = RAC) Organization Information: Site ID: RGA [facility] Address: [address] [place] [address] Director: Rajinder Grant [facility] CenterHSV 1 and 2 specific Ab [id number] 22:17:00 Test Item Value Reference Interpretation Comments [...] ease refer to http://educatio n.Ques tDiagnostics.co m/faq/ PFR130 (This li nk is being provided for informational/e ducati onal purposes o nly.) RAC (test code = Performing RAC) Organization Information: Site ID: IG Name: [facility] Address: [address] [place] [address] Director: Dr. Rajinder Grant Lab Interpretation Abnormal (test code = 35684-8) [facility] surface [id number] 22:17:00 Test Item Value Reference Range Interpretation Comments Hepatitis B surface NON-REACTIVE NON-REACTIVE Ag (test code = 5196-1) RAC (test code = RAC) Performing Organization Information: Site ID: RGA [facility] Address: [address] [place] [address] Director: Rajinder Grant [facility] CenterRPR with reflex to [id number] 22:17:00 Test Item Value Reference Range Interpretation Comments RPR (test code = NON-REACTIVE NON-REACTIVE 97310-2) RAC (test code = Performing Organization RAC) Information: Site ID: RGA [facility] Address: [address] [place] [address] Director: Rajinder Grant [facility] C virus (HCV), quantitative [id number] 22:17:00 Test Item Value Reference Interpretation Comments Range HCV RNA, <15 NOT DETECTED NOT DETECTED quantitative PCR IU/mL (test code = 90861-8) HCV viral log <1.18 NOT DETECTED NOT DETECTED This bhupendra t was (test code = Log IU/mL performed using 58997-0) Real-Time Polym [employer]. Reportable Rang e: 15 IU/mL to 100,00 0,000 IU/mL(1.18 Log IU/mL to 8.00 Log IU/ mL). The analytical performance characteristics of thisassay have been determined by [employer]. Th e modifications h ave not been cleare d or approved bythe FDA. This assay has been validated pursu ant to the CLIA regulations and is used for clinic al purposes. For m ore information on this test, go to:http://educa dylon. Sponduu /faq/RYA70d9(Th is link is being provided for informational/e ducat ional purposes only.) RAC (test code = Performing RAC) Organization Information: Site ID: IG [facility] Address: [address] [place] [address] Director: Dr. Rajinder Grant [facility] CenterHepatitis C [id number] 22:17:00 Test Item Value Reference Interpretation Comments Range Hepatitis C Ab (test REACTIVE NON-REACTIVE A code = 03111-3) Signal/cutoff (test >11.00 See_Comment H Based o n this code = 26596-8) result, the sample will be testedf or [...] RAC) Organization Information: Site ID: RGA Name: [facility] Address: [address] [place] [address] Director: Rajinder Grant Lab Interpretation Abnormal (test code = 87161-0) [facility]/2 combined Ab, [id number] 22:17:00 Test Item Value Reference Interpretation Comments Range HSV 1 IgM NEGATIVE (test code = 54442-6) HSV 2 IgM NEGATIVE REFERENCE RANG E: NEGATIVE HSV (test IgM is detectab le in serum code = from >90% of [facility] [address]-6) primary HSV inf ection. However, HSV Ig [...] performancechar acteristics have been deter mined by [facility].It has not been cleared or appr luis by FDA. This assay hasb een validated pursuant to the CLIA regulations and isused for clinical purpos es. RAC (test Performing code = Organization RAC) Information: Site ID: EZ Name: [facility], Address: [address] [place] [address] Director: Crista Camacho MD,PhD,BARI [facility] CenterHIV 1/2 antigen/antibody, fourth generation, with reflexes 2022-02-11 22:17:00 Test Item Value Reference Range Interpretation Comments HIV NON-REACTIVE NON-REACTIVE HIV-1 antigen a nd antigen/ant HIV-1/HIV-2 ant ibodies ibody 4th were notdetecte d. There gen (test is no laborator y evidence code = of HIVinfection . PLEASE 59341-4) NOTE: This info rmation has been disclo [...] ad ditional information ple ase refer tohttp://educat ion.Hoffmeister Leuchten.[employer]/ faq/YOA263 (This link is b eing provided for informational/e ducational purposes only.) The performance of this assay has not been clinicallyvalid ated in patients less t lagunas 2 years old. RAC (test Performing code = RAC) Organization Information: Site ID: RGA [facility] Address: [address] [place] [address] Director: Rajinder Grant [facility] CenterHSV 1 and 2 specific Ab [id number] 22:17:00 Test Item Value Reference Interpretation Comments [...] ease refer to http://educatio nReza tDiagnostics.co m/faq/ IBD906 (This li nk is being provided for informational/e ducati onal purposes o nly.) RAC (test code = Performing RAC) Organization Information: Site ID: IG Name: [facility] Address: [address] [place] [address] Director: Dr. Rajinder Grant Lab Interpretation Abnormal (test code = 01195-9) [facility] CenterHerockcastle [facility] hospitaltis B surface [id number] 22:17:00 Test Item Value Reference Range Interpretation Comments Hepatitis B surface NON-REACTIVE NON-REACTIVE Ag (test code = 5196-1) RAC (test code = RAC) Performing Organization Information: Site ID: RGA [facility] Address: [address] [place] [address] Director: Rajinder Grant [facility] CenterRPR with reflex to [id number] 22:17:00 Test Item Value Reference Range Interpretation Comments RPR (test code = NON-REACTIVE NON-REACTIVE 05256-2) RAC (test code = Performing Organization RAC) Information: Site ID: RGA [facility] Address: [address] [place] [address] Director: Rajinder Grant [facility] C virus (HCV), quantitative [id number] 22:17:00 Test Item Value Reference Interpretation Comments Range HCV RNA, <15 NOT DETECTED NOT DETECTED quantitative PCR IU/mL (test code = 17780-7) HCV viral log <1.18 NOT DETECTED NOT DETECTED This bhupendra t was (test code = Log IU/mL performed using 23153-3) Real-Time Polym [employer]. Reportable Rang e: 15 IU/mL to 100,00 0,000 IU/mL(1.18 Log IU/mL to 8.00 Log IU/ mL). The analytical performance characteristics of thisassay have been determined by [employer]. Th e modifications h ave not been cleare d or approved bythe FDA. This assay has been validated pursu ant to the CLIA regulations and is used for clinic al purposes. For m ore information on this test, go to:http://Everplacesa Spry Hive Industrieson. Sponduu /faq/WMG42a6( is link is being provided for informational/e ducat ional purposes only.) RAC (test code = Performing RAC) Organization Information: Site ID: IG [facility] Address: [address] [place] [address] Director: Dr. Rajinder Grant [facility] CenterHepatitis C [id number] 22:17:00 Test Item Value Reference Interpretation Comments Range Hepatitis C Ab (test REACTIVE NON-REACTIVE A code = 67878-2) Signal/cutoff (test >11.00 See_Comment H Based o n this code = 34894-7) result, the sample will be testedf or [...] RAC) Organization Information: Site ID: RGA [facility] Address: [address] [place] [address] Director: Rajinder Grant Lab Interpretation Abnormal (test code = 03926-6) [facility] CenterHSV type 1/2 combined Ab, [id number] 22:17:00 Test Item Value Reference Interpretation Comments Range HSV 1 IgM NEGATIVE (test code = 49464-6) HSV 2 IgM NEGATIVE REFERENCE RANG E: NEGATIVE HSV (test IgM is detectab le in serum code = from >90% of [place] tracey 86232-7) primary HSV inf ection. However, HSV Ig [...] performancechar acteristics have been deter mined by [facility].It has not been cleared or appr luis by FDA. This assay hasb een validated pursuant to the CLIA regulations and isused for clinical purpos es. RAC (test Performing code = Organization RAC) Information: Site ID: EZ Name: [facility], Address: [address] [place] [address] Director: Crista Camacho MD,PhD,BARI [facility]HIV [facility]2 antigen/antibody, fourth generation, with reflexes 2022-02-11 22:17:00 Test Item Value Reference Range Interpretation Comments HIV NON-REACTIVE NON-REACTIVE HIV-1 antigen a nd antigen/ant HIV-1/HIV-2 ant ibodies ibody 4th were notdetecte d. There gen (test is no laborator y evidence code = of HIVinfection . PLEASE 59476-5) NOTE: This info rmation has been disclo [...] ad ditional information ple ase refer tohttp://educat ion.questd iagnostics.Ewirelessgear/ faq/XLI980 (This link is b eing provided for informational/e ducational purposes only.) The performance of this assay has not been clinicallyvalid ated in patients less t lagunas 2 years old. RAC (test Performing code = RAC) Organization Information: Site ID: RGA [facility] Address: [address] [place] [address] Director: Rajinder Grant [facility] CenterHSV 1 and 2 specific Ab [id number] 22:17:00 Test Item Value Reference Interpretation Comments [...] ease refer to http://educatio n.Tri tDiagnostics.co m/faq/ JUP448 (This li nk is being provided for informational/e ducati onal purposes o nly.) RAC (test code = Performing RAC) Organization Information: Site ID: IG Name: [facility] Address: [address] [place] [address] Director: Dr. Rajinder Grant Lab Interpretation Abnormal (test code = 77765-8) [facility] [id number] 15:02:28 Test Item Value Reference Range Interpretation Comments Case number (test code = [id number]) Surgical pathology See link below for report (test code = PDF Lab Report 4529) Result status (test code This is Final Report = [id number]) for [address] pathology [id number] 15:02:28 Test Item Value Reference Range Interpretation Comments Case number (test code = [id number]) Surgical pathology See link below for report (test code = PDF Lab Report 2255) Result status (test code This is Final Report = [id number]) for [address] pathology [id number] 15:02:28 Test Item Value Reference Range Interpretation Comments Case number (test code = [id number]) Surgical pathology See link below for report (test code = PDF Lab Report 2255) Result status (test code This is Final Report = [id number]) for [address] pathology [id number] 15:02:28 Test Item Value Reference Range Interpretation Comments Case number (test code = [id number]) Surgical pathology See link below for report (test code = PDF Lab Report 2255) Result status (test code This is Final Report = [id number]) for [address] pathology [id number] 15:02:28 Test Item Value Reference Range Interpretation Comments Case number (test code = [id number]) Surgical pathology See link below for report (test code = PDF Lab Report 2255) Result status (test code This is Final Report = [id number]) for [address] pathology [id number] 15:02:28 Test Item Value Reference Range Interpretation Comments Case number (test code = [id number]) Surgical pathology See link below for report (test code = PDF Lab Report 2255) Result status (test code This is Final Report = [id number]) [address] [id number] 15:02:28 Test Item Value Reference Range Interpretation Comments Case number (test code = [id number]) Surgical pathology See link below for report (test code = PDF Lab Report 2255) Result status (test code This is Final Report = [id number]) for [address] pathology [id number] 15:02:28 Test Item Value Reference Range Interpretation Comments Case number (test code = [id number]) Surgical pathology See link below for report (test code = PDF Lab Report 2255) Result status (test code This is Final Report = [id number]) for [address] pathology [id number] 15:02:28 Test Item Value Reference Range Interpretation Comments Case number (test code = [id number]) Surgical pathology See link below for report (test code = PDF Lab Report 2255) Result status (test code This is Final Report = [id number]) for [address] pathology [id number] 15:02:28 Test Item Value Reference Range Interpretation Comments Case number (test code = [id number]) Surgical pathology See link below for report (test code = PDF Lab Report 2255) Result status (test code This is Final Report = [id number]) for [address] pathology [id number] 15:02:28 Test Item Value Reference Range Interpretation Comments Case number (test code = [id number]) Surgical pathology See link below for report (test code = PDF Lab Report 2255) Result status (test code This is Final Report = [id number]) for [address] pathology [id number] 15:02:28 Test Item Value Reference Range Interpretation Comments Case number (test code = [id number]) Surgical pathology See link below for report (test code = PDF Lab Report 2255) Result status (test code This is Final Report = [id number]) for [address] pathology [id number] 15:02:28 Test Item Value Reference Range Interpretation Comments Case number (test code = [id number]) Surgical pathology See link below for report (test code = PDF Lab Report 2255) Result status (test code This is Final Report = [id number]) [address] qualitative [id number] 22:09:28 Test Item Value Reference Interpretation Comments Range Interpretation (test Negative results do not code = 4565174) preclude COVID-19 infection and should not be used asthe sole basis for treatment or other patient management decisions. Negativeresults must be combined with clinical observations, patient history, andepidemiological information. COVID-19 qualitative Not-Detected Not-Detected RT-PCR result (test code = 29541-7) COVID-19 qualitative See link below for PDF Case Number: RT-PCR (test code = Lab Report [id number] [id number]) [facility] [id number] 22:09:28 Test Item Value Reference Interpretation Comments Range Interpretation (test Negative results do not code = 4829690) preclude COVID-19 infection and should not be used asthe sole basis for treatment or other patient management decisions. Negativeresults must be combined with clinical observations, patient history, andepidemiological information. COVID-19 qualitative Not-Detected Not-Detected RT-PCR result (test code = 00642-5) COVID-19 qualitative See link below for PDF Case Number: RT-PCR (test code = Lab Report [id number] 7070) [facility] [id number] 22:09:28 Test Item Value Reference Interpretation Comments Range Interpretation (test Negative results do not code = 4940316) preclude COVID-19 infection and should not be used asthe sole basis for treatment or other patient management decisions. Negativeresults must be combined with clinical observations, patient history, andepidemiological information. COVID-19 qualitative Not-Detected Not-Detected RT-PCR result (test code = 04508-5) COVID-19 qualitative See link below for PDF Case Number: RT-PCR (test code = Lab Report [id number] [id number]) [facility] [id number] 22:09:28 Test Item Value Reference Interpretation Comments Range Interpretation (test Negative results do not code = 3274865) preclude COVID-19 infection and should not be used asthe sole basis for treatment or other patient management decisions. Negativeresults must be combined with clinical observations, patient history, andepidemiological information. COVID-19 qualitative Not-Detected Not-Detected RT-PCR result (test code = 42167-1) COVID-19 qualitative See link below for PDF Case Number: RT-PCR (test code = Lab Report [id number] 7070) [facility] [id number] 22:09:28 Test Item Value Reference Interpretation Comments Range Interpretation (test Negative results do not code = 4761535) preclude COVID-19 infection and should not be used asthe sole basis for treatment or other patient management decisions. Negativeresults must be combined with clinical observations, patient history, andepidemiological information. COVID-19 qualitative Not-Detected Not-Detected RT-PCR result (test code = 31760-5) COVID-19 qualitative See link below for PDF Case Number: RT-PCR (test code = Lab Report [id number] 7070) [facility] [id number] 22:09:28 Test Item Value Reference Interpretation Comments Range Interpretation (test Negative results do not code = 5159991) preclude COVID-19 infection and should not be used asthe sole basis for treatment or other patient management decisions. Negativeresults must be combined with clinical observations, patient history, andepidemiological information. COVID-19 qualitative Not-Detected Not-Detected RT-PCR result (test code = 02543-0) COVID-19 qualitative See link below for PDF Case Number: RT-PCR (test code = Lab Report [id number] 7070) [facility] qualitative [id number] 22:09:28 Test Item Value Reference Interpretation Comments Range Interpretation (test Negative results do not code = 0838095) preclude COVID-19 infection and should not be used asthe sole basis for treatment or other patient management decisions. Negativeresults must be combined with clinical observations, patient history, andepidemiological information. COVID-19 qualitative Not-Detected Not-Detected RT-PCR result (test code = 07680-2) COVID-19 qualitative See link below for PDF Case Number: RT-PCR (test code = Lab Report [id number] 7070) [facility] [id number] 22:09:28 Test Item Value Reference Interpretation Comments Range Interpretation (test Negative results do not code = 2944391) preclude COVID-19 infection and should not be used asthe sole basis for treatment or other patient management decisions. Negativeresults must be combined with clinical observations, patient history, andepidemiological information. COVID-19 qualitative Not-Detected Not-Detected RT-PCR result (test code = 97012-5) COVID-19 qualitative See link below for PDF Case Number: RT-PCR PDF (test Lab Report [id number] 1 code = 7070) [facility] [id number] 22:09:28 Test Item Value Reference Interpretation Comments Range Interpretation (test Negative results do not code = 5785217) preclude COVID-19 infection and should not be used asthe sole basis for treatment or other patient management decisions. Negativeresults must be combined with clinical observations, patient history, andepidemiological information. COVID-19 qualitative Not-Detected Not-Detected RT-PCR result (test code = 90543-0) COVID-19 qualitative See link below for PDF Case Number: RT-PCR PDF (test Lab Report [id number] 1 code = 7070) [facility] [id number] 22:09:28 Test Item Value Reference Interpretation Comments Range Interpretation (test Negative results do not code = 8297487) preclude COVID-19 infection and should not be used asthe sole basis for treatment or other patient management decisions. Negativeresults must be combined with clinical observations, patient history, andepidemiological information. COVID-19 qualitative Not-Detected Not-Detected RT-PCR result (test code = 80457-0) COVID-19 qualitative See link below for PDF Case Number: RT-PCR PDF (test Lab Report [id number] 1 code = 7070) [facility] [id number] 22:09:28 Test Item Value Reference Interpretation Comments Range Interpretation (test Negative results do not code = 3861319) preclude COVID-19 infection and should not be used asthe sole basis for treatment or other patient management decisions. Negativeresults must be combined with clinical observations, patient history, andepidemiological information. COVID-19 qualitative Not-Detected Not-Detected RT-PCR result (test code = 48404-2) COVID-19 qualitative See link below for PDF Case Number: RT-PCR PDF (test Lab Report [id number] 1 code = 7070) [facility] [id number] 22:09:28 Test Item Value Reference Interpretation Comments Range Interpretation (test Negative results do not code = 2773324) preclude COVID-19 infection and should not be used asthe sole basis for treatment or other patient management decisions. Negativeresults must be combined with clinical observations, patient history, andepidemiological information. COVID-19 qualitative Not-Detected Not-Detected RT-PCR result (test code = 63136-8) COVID-19 qualitative See link below for PDF Case Number: RT-PCR PDF (test Lab Report [id number] 1 code = 7070) [facility] [id number] 22:09:28 Test Item Value Reference Interpretation Comments Range Interpretation (test Negative results do not code = 4465122) preclude COVID-19 infection and should not be used asthe sole basis for treatment or other patient management decisions. Negativeresults must be combined with clinical observations, patient history, andepidemiological information. COVID-19 qualitative Not-Detected Not-Detected RT-PCR result (test code = 82545-0) COVID-19 qualitative See link below for PDF Case Number: RT-PCR PDF (test Lab Report [id number] 1 code = 7070) [facility] [Presence] in Respiratory specimen by LATESHA with probe [id number] 17:09:28 Test Item Value Reference Range Interpretation Comments SARS-CoV-2 (COVID-19) RNA Not detected [Presence] in Respiratory specimen by LATESHA with probe detection (test code = 72827-5) Whether patient is employed in a Unknown healthcare setting (test code = 93758-7) Whether the patient has symptoms Unknown related to condition of interest (test code = 09850-4) Whether the patient was Unknown hospitalized for condition of interest (test code = 53615-9) Whether the patient was admitted Unknown to intensive care unit (ICU) for condition of interest (test code = 32557-8) Whether patient resides in a Unknown congregate care setting (test code = 89369-0) status (test code = Unknown 40153-8) Date and time of symptom onset Unknown (test code = 97600-4) [facility]PRE[facility] TIS AND HPV mRNA [id number] 20:30:00 Test Item Value Reference Interpretation Comments Range Clinical information None gi niurka (test code = 72732-5) Date of last NONE GIVEN menstrual period (test code = 8665-2) Prev. pap: (test code NONE G IVEN = 30133-2) Prev. bx: (test code NONE GI NIURKA = 40485-6) Source (test code = None giv en 35698-1) Statement of adequacy Satisf actory for (test code = 68057-4) evalua tion.Endocervi cony/transformat ion zone componentpresen t.Age and/or menstrua l status not prov ided Interpretation/result Negati ve for : (test code = intraepitheli al 99580-8) lesion or malignancy. Comment (test code = This Pa p test has ) been evaluated with [employer] technology. Public Speaker [employer] CT ( CP)CT (test code = 71101-9) screen ing location: [place] [address] [address] , [facility] [address] 2 Comment (test code = EXPLANA TORY NOTE: 4514865) The Pap is a screening test for [...] Detected Not Detected Methodo logy: code = 79417-9) Transcriptio n-Mediat ed Amplificatio n This assay [...] For additional information, pl ease refer tohttp://educat ion.[employer]/ faq/PVO690w3(Th is link if provide d for information/edu catio nal purposes on ly.) RAC (test code = RAC) Performing Organization Information: Site ID: IG Name: [facility] Address: [address] [place] [address] Director: Dr. Rajinder Grant Site ID: RGA Name: [facility] Address: [address] [place] [address] Director: Rajinder Grant [facility] AND HPV mRNA [id number] 20:30:00 Test Item Value Reference Interpretation Comments Range Clinical information None gi niurka (test code = 44665-5) Date of last NONE GIVEN menstrual period (test code = 8665-2) Prev. pap: (test code NONE G IVEN = 86034-1) Prev. bx: (test code NONE GI NIURKA = 62224-9) Source (test code = None giv en ) Statement of adequacy Satisf actory for (test code = 07902-1) evalua tion.Endocervi cony/transformat ion zone componentpresen t.Age and/or menstrua l status not prov ided Interpretation/result Negati ve for : (test code = intraepitheli al 43147-6) lesion or malignancy. Comment (test code = This Pa p test has ) been evaluated with computerassiste d technology. Public Speaker [employer] CT ( CP)CT (test code = 94292-0) screen ing location: [address], [place] [address] Comment (test code = EXPLANA TORY NOTE: 3508524) The Pap is a screening test for [...] Detected Not Detected Methodo logy: code = 22403-1) Transcriptio n-Mediat ed Amplificatio n This assay [...] For additional information, pl ease refer tohttp://educat ion.[employer]/ faq/XUN014p1(Th is link if provide d for information/edu catio nal purposes on ly.) RAC (test code = RAC) Performing Organization Information: Site ID: IG Name: [facility] Address: [address] [place] [address] Director: Dr. Rajinder Grant Site ID: RGA Name: [facility] Address: [address] [place] [address] Director: Rajinder Grant [facility]IS AND HPV mRNA [id number] 20:30:00 Test Item Value Reference Interpretation Comments Range Clinical information None gi niurka (test code = 45470-5) Date of last NONE GIVEN menstrual period (test code = 8665-2) Prev. pap: (test code NONE G IVEN = 42079-6) Prev. bx: (test code NONE GI NIURKA = 77654-6) Source (test code = [place] 547[address]-5) Statement of adequacy Satisf actory for (test code = 44966-4) evalua tion.Endocervi cony/transformat ion zone componentpresen t.Age and/or menstrua l status not prov ided Interpretation/result Negati ve for : (test code = intraepitheli al 85589-9) lesion or malignancy. Comment (test code = This Pa p test has ) been evaluated with computerassiste d technology. Public Speaker [employer] CT ( CP)CT (test code = 09968-0) screen ing location: [facility] [address] [place] [address], [place] [address] Comment (test code = EXPLANA TORY NOTE: 0741345) The Pap is a screening test for [...] Detected Not Detected Methodo logy: code = 91110-0) Transcriptio n-Mediat ed Amplificatio n This assay [...] For additional information, pl ease refer tohttp://educat ion.[employer]/ faq/IDQ108c1(Th is link if provide d for information/edu catio nal purposes on ly.) RAC (test code = RAC) Performing Organization Information: Site ID: IG Name: [facility] Address: [address] [place] [address] Director: Dr. Rajinder Grant Site ID: RGA Name: [facility] Address: [address] [place] [address] Director: Rajinder Grant [facility] Center[facility]IN[facility] TIS AND HPV mRNA [id number] 20:30:00 Test Item Value Reference Interpretation Comments Range Clinical information None gi niurka (test code = 47806-2) Date of last NONE GIVEN menstrual period (test code = 8665-2) Prev. pap: (test code NONE G IVEN = 07211-4) Prev. bx: (test code NONE GI NIURKA = 32960-0) Source (test code = None giv en ) Statement of adequacy Satisf actory for (test code = 13585-4) evalua tion.Endocervi cony/transformat ion zone componentpresen t.Age and/or menstrua l status not prov ided Interpretation/result Negati ve for : (test code = intraepitheli al 59289-7) lesion or malignancy. Comment (test code = This Pa p test has ) been evaluated with QuantHouseiste d technology. Public Speaker SYL DUTTON ( CP)CT (test code = 01562-3) screen ing location: [address], [place] [address] Comment (test code = EXPLANA NONA NOTE: 6430648) The Pap is a screening test for [...] Detected Not Detected Methodo logy: code = 43599-5) Transcriptio n-Mediat ed Amplificatio n This assay [...] additional information, pl ease refer tohttp://educat ion.q Kiind.me/ faq/ZDK406x2(Th is link if provide d for information/edu catio nal purposes on ly.) RAC (test code = RAC) Performing Organization Information: Site ID: IG Name: [facility] Address: [address] [place] [address] Director: Dr. Rajinder Grant Site ID: RGA Name: [facility] Address: [address] [place] [address] Director: Rajinder Grant [facility]IN[facility] TIS AND HPV mRNA [id number] 20:30:00 Test Item Value Reference Interpretation Comments Range Clinical information None gi niurka (test code = 39513-7) Date of last NONE GIVEN menstrual period (test code = 8665-2) Prev. pap: (test code NONE G IVEN = 46444-6) Prev. bx: (test code NONE GI NIURKA = 95376-2) Source (test code = [place] 65756-0) Statement of adequacy Satisf actory for (test code = 11181-3) evalua tion.Endocervi cony/transformat ion zone componentpresen t.Age and/or menstrua l status not prov ided Interpretation/result Negati ve for : (test code = intraepitheli al 88471-2) lesion or malignancy. Comment (test code = This Pa p test has ) been evaluated with Quant[employer]iste d technology. Public Speaker NATO, CT ( CP)CT (test code = 11012-4) screen ing location: [place] [address] [address] [facility], [facility] [address] 2 Comment (test code = EXPLANA TORY NOTE: 7280473) The Pap is a screening test for [...] Detected Not Detected Methodo logy: code = 21409-7) Transcriptio n-Mediat ed Amplificatio n This assay dete cts E6/E7 viral messenger RNA ( mRNA) from 14high-ris k HPV types (16,18,31,33,35 ,39,4 5,51,52,56,58,5 9,66, 68). Cervical sources are req uired for HPV testing .If a vaginal source from a patient who h as had atotal hysterectomy wi removal of cerv ix was submitted, please contact the testing laboratoryfor alternative bhupnedra ting options. For additional information, pl ease refer tohttp://educat ion.[employer] .[employer]/ faq/EWD029l9(Th is link if provide d for information/edu catio nal purposes on ly.) RAC (test code = RAC) Performing Organization Information: Site ID: IG Name: [facility] Address: [address] [place] [address] Director: Dr. Rajinder Grant Site ID: RGA Name: [facility] Address: [address] [place] [address] Director: Rajinder Grant [facility] AND HPV mRNA [id number] 20:30:00 Test Item Value Reference Interpretation Comments Range Clinical information None gi niurka (test code = 52631-4) Date of last NONE GIVEN menstrual period (test code = 8665-2) Prev. pap: (test code NONE G IVEN = 60562-5) Prev. bx: (test code NONE GI NIURKA = 05055-4) Source (test code = [place] 99064-2) Statement of adequacy Satisf actory for (test code = 26981-4) evalua tion.Endocervi cony/transformat ion zone componentpresen t.Age and/or menstrua l status not prov ided Interpretation/result Negati ve for : (test code = intraepitheli al 27433-4) lesion or malignancy. Comment (test code = This Pa p test has ) been evaluated with Egodeusassiste d technology. Public Speaker SYL DUTTON ( CP)CT (test code = 99415-9) screen ing location: [address], [place] [address] Comment (test code = EXPLANA TORY NOTE: 5793381) The Pap is a screening test for [...] Detected Not Detected Methodo logy: code = 22248-1) Transcriptio n-Mediat ed Amplificatio n This assay [...] For additional information, pl ease refer tohttp://educat ion.[employer]/ faq/QYN291h2(Th is link if provide d for information/edu catio nal purposes on ly.) JACEK (test code = RAC) Performing Organization Information: Site ID: IG Name: [facility] Address: [address] [place] [address] Director: Dr. Rajinder Grant Site ID: RGA Name: [facility] Address: [address] [place] [address] Director: Rajinder Grant [facility]IS AND HPV mRNA [id number] 20:30:00 Test Item Value Reference Interpretation Comments Range Clinical information None gi niurka (test code = 56375-8) Date of last NONE GIVEN menstrual period (test code = 8665-2) Prev. pap: (test code NONE G IVEN = 94047-0) Prev. bx: (test code NONE GI NIURKA = 35745-4) Source (test code = [place] 24959-0) Statement of adequacy Satisf actory for (test code = 72335-4) evalua tion.Endocervi cony/transformat ion zone componentpresen t.Age and/or menstrua l status not prov ided Interpretation/result Negati ve for : (test code = intraepitheli al 01671-0) lesion or malignancy. Comment (test code = This Pa p test has ) been evaluated with computerassiste d technology. Public Speaker NATO, CT ( CP)CT (test code = 79059-6) screen ing location: [facility] [address] [place] [address], [place] [address] Comment (test code = EXPLANA TORY NOTE: 6852143) The Pap is a screening test for [...] Detected Not Detected Methodo logy: code = 03374-3) Transcriptio n-Mediat ed Amplificatio n This assay [...] For additional information, pl ease refer tohttp://educat ion.[employer]/ faq/IMS653l2(Th is link if provide d for information/edu catio nal purposes on ly.) RAC (test code = RAC) Performing Organization Information: Site ID: IG Name: [facility] Address: [address] [place] [address] Director: Dr. Rajinder Grant Site ID: RGA Name: [facility] Address: [address] [place] [address] Director: Rajinder Grant [facility] TIS AND HPV mRNA [id number] 20:30:00 Test Item Value Reference Interpretation Comments Range Clinical information None gi niurka (test code = 07159-3) Date of last NONE GIVEN menstrual period (test code = 8665-2) Prev. pap: (test code NONE G IVEN = 72076-6) Prev. bx: (test code NONE GI NIURKA = 31903-3) Source (test code = None giv en ) Statement of adequacy Satisf actory for (test code = 51575-7) evalua tion.Endocervi cony/transformat ion zone componentpresen t.Age and/or menstrua l status not prov ided Interpretation/result Negati ve for : (test code = intraepitheli al 30123-0) lesion or malignancy. Comment (test code = This Pa p test has ) been evaluated with QuantHouseiste d technology. Public Speaker NATO CT ( CP)CT (test code = 47307-1) screen ing location: [address], [place] [address] Comment (test code = EXPLANA TORY NOTE: 3008282) The Pap is a screening test for [...] Detected Not Detected Methodo logy: code = 21863-6) Transcriptio n-Mediat ed Amplificatio n This assay [...] For additional information, pl ease refer tohttp://educat ion.[employer]/ faq/HNX538i7(Th is link if provide d for information/edu catio nal purposes on ly.) RAC (test code = RAC) Performing Organization Information: Site ID: IG Name: [facility] Address: [address] [place] [address] Director: Dr. Rajinder Grant Site ID: RGA Name: [facility] Address: [address] [place] [address] Director: Rajinder Grant [facility] CenterTHINPREP TIS AND HPV mRNA E6/[id number] 20:30:00 Test Item Value Reference Interpretation Comments Range Clinical information None gi niurka (test code = 08731-5) Date of last NONE GIVEN menstrual period (test code = 8665-2) Prev. pap: (test code NONE G IVEN = 72948-5) Prev. bx: (test code NONE GI NIURKA = 45134-6) Source (test code = None giv [place] 63202-5) Statement of adequacy Satisf actory for (test code = 12436-9) evalua tion.Endocervi cony/transformat ion zone componentpresen t.Age and/or menstrua l status not prov ided Interpretation/result Negati ve for : (test code = intraepitheli al 90711-3) lesion or malignancy. Comment (test code = This Pa p test has ) been evaluated with QuantHouseistTheracos d technology. Public Speaker [employer] CT ( CP)CT (test code = 60126-0) screen ing location: [place] [address] [address] [facility], [facility] 7707 2 Comment (test code = EXPLANA TORY NOTE: 4057332) The Pap is a screening test for [...] Detected Not Detected Methodo logy: code = 23977-0) Transcriptio n-Mediat ed Amplificatio n This assay [...] For additional information, pl ease refer tohttp://educat ion.[employer]/ faq/BOU773m1(Th is link if provide d for information/edu catio nal purposes on ly.) RAC (test code = RAC) Performing Organization Information: Site ID: IG Name: [facility] Address: [address] [place] [address] Director: Dr. Rajinder Grant Site ID: RGA Name: [facility] Address: [address] [place] [address] Director: Rajinder Grant [facility] CenterTHINPREP TIS AND HPV mRNA E6/[id number] 20:30:00 Test Item Value Reference Interpretation Comments Range Clinical information None gi niurka (test code = 23383-8) Date of last NONE GIVEN menstrual period (test code = 8665-2) Prev. pap: (test code NONE G IVEN = 97916-7) Prev. bx: (test code NONE GI NIURKA = 81136-6) Source (test code = None giv [place] 55429-3) Statement of adequacy Satisf actory for (test code = 26157-3) evalua tion.Endocervi cony/transformat ion zone componentpresen t.Age and/or menstrua l status not prov ided Interpretation/result Negati ve for : (test code = intraepitheli al 28151-7) lesion or malignancy. Comment (test code = This Pa p test has ) been evaluated with computerassiste d technology. Public Speaker SYL DUTTON ( CP)CT (test code = 35491-7) screen ing location: [address], [place] [address] Comment (test code = EXPLANA TORY NOTE: 2885209) The Pap is a screening test for [...] Detected Not Detected Methodo logy: code = 46085-6) Transcriptio n-Mediat ed Amplificatio n This assay [...] For additional information, pl ease refer tohttp://educat ion.[employer]/ faq/SDT022i3(Th is link if provide d for information/edu catio nal purposes on ly.) RAC (test code = RAC) Performing Organization Information: Site ID: IG Name: [facility] Address: [address] [place] [address] Director: Dr. Rajinder Grant Site ID: RGA Name: [facility] Address: [address] [place] [address] Director: Rajinder Grant [facility] CenterTHINPREP TIS AND HPV mRNA E6/[id number] 20:30:00 Test Item Value Reference Interpretation Comments Range Clinical information None gi niurka (test code = 19266-0) Date of last NONE GIVEN menstrual period (test code = 8665-2) Prev. pap: (test code NONE G IVEN = 74096-8) Prev. bx: (test code NONE GI NIURKA = 94779-8) Source (test code = [place] 59402-8) Statement of adequacy Satisf actory for (test code = 75756-7) evalua tion.Endocervi cony/transformat ion zone componentpresen t.Age and/or menstrua l status not prov ided Interpretation/result Negati ve for : (test code = intraepitheli al 84725-5) lesion or malignancy. Comment (test code = [place] [address]-5) been evaluated with computerassiste d technology. Public Speaker SYL DUTTON ( CP)CT (test code = 88796-2) screen ing location: [facility] [address] [facility], [place] [address] 2 Comment (test code = EXPLANA TORY NOTE: 0899428) The Pap is a screening test for [...] Detected Not Detected Methodo logy: code = 88009-6) Transcriptio n-Mediat ed Amplificatio n This assay [...] For additional information, pl ease refer tohttp://educat ion.[employer]/ faq/NOY926l7(Th is link if provide d for information/edu catio nal purposes on ly.) JACEK (test code = RAC) Performing Organization Information: Site ID: IG Name: [facility] Address: [address] [place] [address] Director: Dr. Rajinder Grant Site ID: RGA Name: [facility] Address: [address] [place] [address] Director: Rajinder Grant [facility] CenterTHINPREP TIS AND HPV mRNA E6/[id number] 20:30:00 Test Item Value Reference Interpretation Comments Range Clinical information None gi niurka (test code = 15778-5) Date of last NONE GIVEN menstrual period (test code = 8665-2) Prev. pap: (test code NONE G IVEN = 69597-1) Prev. bx: (test code NONE GI NIURKA = 02390-5) Source (test code = None giv en ) Statement of adequacy Satisf actory for (test code = 17799-8) evalua tion.Endocervi cony/transformat ion zone componentpresen t.Age and/or menstrua l status not prov ided Interpretation/result Negati ve for : (test code = intraepitheli al 35581-9) lesion or malignancy. Comment (test code = This Pa p test has ) been evaluated with QuantHouseiste d technology. Public Speaker SYL DUTTON ( CP)CT (test code = 94688-0) screen ing location: [address], [place] [address] Comment (test code = EXPLANA TORY NOTE: 5427938) The Pap is a screening test for [...] Detected Not Detected Methodo logy: code = 97710-1) Transcriptio n-Mediat ed Amplificatio n This assay [...] For additional information, pl ease refer tohttp://educat ion.[employer] .[employer]/ faq/RLR449t3(Th is link if provide d for information/edu catio nal purposes on ly.) RAC (test code = RAC) Performing Organization Information: Site ID: IG Name: [facility] Address: [address] [place] [address] Director: Dr. Rajinder Grant Site ID: RGA Name: [facility] Address: [address] [place] [address] Director: Rajinder Grant [facility] CenterTHINPREP TIS AND HPV mRNA E6/[id number] 20:30:00 Test Item Value Reference Interpretation Comments Range Clinical information None gi niurka (test code = 56932-9) Date of last NONE GIVEN menstrual period (test code = 8665-2) Prev. pap: (test code NONE G IVEN = 07472-4) Prev. bx: (test code NONE GI NIURKA = 35653-6) Source (test code = None giv en ) Statement of adequacy Satisf actory for (test code = 02766-3) evalua tion.Endocervi cony/transformat ion zone componentpresen t.Age and/or menstrua l status not prov ided Interpretation/result Negati ve for : (test code = intraepitheli al 72730-3) lesion or malignancy. Comment (test code = This Pa p test has ) been evaluated with QuantHouseiste d technology. Public Speaker NATO CT ( CP)CT (test code = 90771-7) screen ing location: [address], [place] [address] 2 Comment (test code = EXPLANA TORY NOTE: 8577134) The Pap is a screening test for [...] Detected Not Detected Methodo logy: code = 29673-8) Transcriptio n-Mediat ed Amplificatio n This assay [...] For additional information, pl ease refer tohttp://educat ion.[employer]/ faq/DGC558k5(Th is link if provide d for information/edu catio nal purposes on ly.) RAC (test code = RAC) Performing Organization Information: Site ID: IG Name: [facility] Address: [address] [place] [address] Director: Dr. Rajinder Grant Site ID: RGA Name: [facility] Address: [address] [place] [address] Director: Rajinder Grant [address]2022-09-01 18:14:37 Test Item Value Reference Range [...] of 07-NOV-2021 12:57,-No significant change was found- [address]2022-09-01 18:14:37 Test Item Value Reference Range [...] of 07-NOV-2021 12:57,-No significant change was found- [address]2022-09-01 18:14:37 Test Item Value Reference Range [...] 12:57,-No significant change was found- [facility] RNA [Presence] in Respiratory specimen by LATESHA with probe [id number] 21:57:49 Test Item Value Reference Range Interpretation Comments SARS-CoV-2 (COVID-19) RNA [Presence] Detected in Respiratory specimen by LATESHA with probe detection (test code = 46528-6) Whether patient is employed in a Unknown healthcare setting (test code = 98448-0) Whether the patient has symptoms Unknown related to condition of interest (test code = 00671-1) Whether the patient was hospitalized Unknown for condition of interest (test code = 28805-4) Whether the patient was admitted to Unknown intensive care unit (ICU) for condition of interest (test code = 27603-4) Whether patient resides in a Unknown congregate care setting (test code = 60797-1) status (test code = Unknown 15865-7) Date and time of symptom onset (test Unknown code = 23516-0) [facility] HEIGHTSHep[facility] function [id number] 18:40:00 Test Item Value Reference Range Interpretation Comments Protein (test code 6.6 g/dL 6.1-8.1 = 2885-2) Albumin, S (test 4.1 g/dL 3.6-5.1 code = 1751-7) Globulin, total See_Comment [Automated (test code = message] The 08285-0) system which generated this result transmitted reference range : 1.9 - 3.7 g/dL (calc). The reference range was not used to interpret this result as normal/abnormal . Albumin/globulin See_Comment [Automated ratio (test code = message] The 1709-0) system which generated this result transmitted reference [...] 0-8) ALT (test code = 14 U/L -2-6) WILDA (test code = FASTING: UNKNOWN WILDA) RAC (test code = Performing RAC) Organization Information: Site ID: RGA Name: [facility] Address: [address] [place] [address] Director: Rajinder Girma MedinaRudyWVUMedicine Barnes[facility] HospitalHepatic function [id number] 18:40:00 Test Item Value Reference Range Interpretation Comments Protein (test code 6.6 g/dL 6.1-8.1 = 2885-2) Albumin, S (test 4.1 g/dL 3.6-5.1 code = 175-7) Globulin, total See_Comment [Automated (test code = message] The 57499-0) system which generated this result transmitted reference [...] RAC) Organization Information: Site ID: RGA Name: [facility] Address: [address] [place] [address] Director: [facility] HospitalHep[facility] function [id number] 18:40:00 Test Item Value Reference Range Interpretation Comments Protein (test code 6.6 g/dL 6.1-8.1 = 2885-2) Albumin, S (test 4.1 g/dL 3.6-5.1 code = 17504-18) Globulin, total See_Comment [Automated (test code = [...] 6768-6) AST (test code = 13 U/L -8) ALT (test code = 14 U/L 10-08-6) WILDA (test code = FASTING: UNKNOWN WILDA) RAC (test code = Performing RAC) Organization Information: Site ID: RGA Name: [facility] Address: [address] [place] [address] Director: Rajinder Grant [facility] CenterHepatic function [id number] 18:40:00 Test Item Value Reference Range Interpretation [...] = Performing RAC) Organization Information: Site ID: [facility] Name: [facility] Address: [address] [place] [address] Director: Rajinder LamarProMedica Toledo HospitalHepatic function [id number] 18:40:00 Test Item Value Reference Range Interpretation [...] RAC) Organization Information: Site ID: RGA Name: [facility] Address: [address] [place] [address] Director: Rajinder KiddSt. Joseph Health College Station HospitalHepatic function [id number] 18:40:00 Test Item Value Reference Range Interpretation [...] RAC) Organization Information: Site ID: RGA Name: [facility] Address: [address] [place] [address] Director: Rajinder Grant [facility] CenterHepatic function [id number] 18:40:00 Test Item Value Reference Range Interpretation [...] 1919-8) ALT (test code = 14 U/L -29 1741-6) WILDA (test code = FASTING: UNKNOWN WILDA) RAC (test code = Performing RAC) Organization Information: Site ID: RGA Name: [facility] Address: [address] [place] [address] Director: Rajinder Grant [facility] CenterHepatic function [id number] 18:40:00 Test Item Value Reference Range Interpretation Comments Protein (test code 6.6 g/dL 6.1-8.1 = 2885-2) Albumin, S (test 4.1 g/dL 3.6-5.1 code = 175-7) Globulin, total 2.5 See_Comment [Automated (test code = message] The 49988-8) system which generated this result transmitted reference [...] AST (test code = 13 U/L 35 0-8) ALT (test code = 14 U/L 10-08-6) WILDA (test code = FASTING: UNKNOWN WILDA) RAC (test code = Performing RAC) Organization Information: Site ID: RGA Name: [facility] Address: [address] [place] [address] Director: Rajinder Grant [facility] CenterHepatic function [id number] 18:40:00 Test Item Value Reference Range Interpretation [...] RAC) Organization Information: Site ID: RGA Name: [facility] Address: [address] [place] [address] Director: [place] Girma [facility] HospitalHepatic function [id number] 18:40:00 Test Item Value Reference Range Interpretation [...] RAC) Organization Information: Site ID: RGA Name: [facility] Address: [address] [place] [address] Director: [facility] HospitalHepatic function [id number] 18:40:00 Test Item Value Reference Range Interpretation [...] RAC) Organization Information: Site ID: RGA Name: [facility] Address: [address] [place] [address] Director: Rajinder Grant [employer] MdkdsujcOHUE-UrB-4 (COVID-19) RNA [Presence] in Respiratory specimen by LATESHA with probe [id number] 20:46:09 Test Item Value Reference Range Interpretation Comments SARS-CoV-2 (COVID-19) RNA Not detected [Presence] in Respiratory specimen by LATESHA with probe detection (test code = 24687-2) Whether patient is employed in a Unknown healthcare setting (test code = 52288-4) Whether the patient has symptoms Unknown related to condition of interest (test code = 86043-0) Whether the patient was Unknown hospitalized for condition of interest (test code = 67131-3) Whether the patient was admitted Unknown to intensive care unit (ICU) for condition of interest (test code = 27140-9) Whether patient resides in a Unknown congregate care setting (test code = 06801-1) status (test code = Unknown 02164-9) Date and time of symptom onset Unknown (test code = 83788-2) [facility] stimulating [id number] 05:23:00 Test Item Value Reference Range Interpretation Comments TSH (test code mIU/L Reference Ra nge > = 3016-3) or = 20 Years 0.40-4.50 Range s First trimester 0.26-2.66 Secon d trimester 0.55-2.73 Third trimester 0.43-2.91 RAC (test code Performing = RAC) Organization Information: Site ID: RGA Name: [facility] Address: [address] [place] [address] Director: Rajinder KiddSt. Joseph Health [facility] Station HospitalThyroid stimulating [id number] 05:23:00 Test Item Value Reference Range Interpretation Comments TSH (test code mIU/L Reference Ra nge > = 3016-3) or = 20 Years 0.40-4.50 Range s First trimester 0.26-2.66 Secon d trimester 0.55-2.73 Third trimester 0.43-2.91 RAC (test code Performing = RAC) Organization Information: Site ID: A Name: [facility] Address: [address] [place] [address] Director: Rajinder KiddLaredo Medical Centerroid [facility] [id number] 05:23:00 Test Item Value Reference Range Interpretation Comments TSH (test code mIU/L Reference Ra nge > = 3016-3) or = 20 Years 0.40-4.50 Range s First trimester 0.26-2.66 Secon d trimester 0.55-2.73 Third trimester 0.43-2.91 RAC (test code Performing = RAC) Organization Information: Site ID: [facility] Name: [facility] Address: [address] [place] [address] Director: Rajinder [facility]iddRio [facility] [id number] 05:23:00 Test Item Value Reference Range Interpretation Comments TSH (test code mIU/L Reference Ra nge > = 3016-3) or = 20 Years 0.40-4.50 Range s First trimester 0.26-2.66 Secon d trimester 0.55-2.73 Third trimester 0.43-2.91 RAC (test code Performing = RAC) Organization Information: Site ID: [facility] Name: [facility] Address: [address] [place] [address] Director: Rajinder KiddLaredo Medical Centerroid [facility] [id number] 05:23:00 Test Item Value Reference Range Interpretation Comments TSH (test code mIU/L Reference Ra nge > = 3016-3) or = 20 Years 0.40-4.50 Range s First trimester 0.26-2.66 Secon d trimester 0.55-2.73 Third trimester 0.43-2.91 RAC (test code Performing = RAC) Organization Information: Site ID: A Name: [facility] Address: [address] [place], [place] [address] Director: Rajinder Grant [facility] [id number] 05:23:00 Test Item Value Reference Range Interpretation Comments TSH (test code mIU/L Reference Ra nge > = 3016-3) or = 20 Years 0.40-4.50 Range s First trimester 0.26-2.66 Secon d trimester 0.55-2.73 Third trimester 0.43-2.91 RAC (test code Performing = RAC) Organization Information: Site ID: A Name: [facility] Address: [address] [place] [address] Director: [facility]20[facility]-11 05:23:00 Test Item Value Reference Range Interpretation Comments TSH (test code 1.97 mIU/L Reference Ra nge > = 3016-3) or = 20 Years 0.40-4.50 Range s First trimester 0.26-2.66 Secon d trimester 0.55-2.73 Third trimester 0.43-2.91 RAC (test code Performing = RAC) Organization Information: Site ID: A Name: [facility] Address: [address] [place] [address] Director: Rajinder [facility]iddR[facility] [id number] 05:23:00 Test Item Value Reference Range Interpretation Comments TSH (test code 1.97 mIU/L Reference Ra nge > = 3016-3) or = 20 Years 0.40-4.50 Range s First trimester 0.26-2.66 Secon d trimester 0.55-2.73 Third trimester 0.43-2.91 RAC (test code Performing = RAC) Organization Information: Site ID: [facility] Name: [facility] Address: [address] [place], [place] [address] Director: Rajinder KiddLaredo Medical Centerroid [facility] [id number] 05:23:00 Test Item Value Reference Range Interpretation Comments TSH (test code 1.97 mIU/L Reference Ra nge > = 3016-3) or = 20 Years 0.40-4.50 Range s First trimester 0.26-2.66 Secon d trimester 0.55-2.73 Third trimester 0.43-2.91 RAC (test code Performing = RAC) Organization Information: Site ID: BEBA Name: [facility] Address: [address] [place] [address] Director: [facility] HospitalThyroid stimulating [id number] 05:23:00 Test Item Value Reference Range Interpretation Comments TSH (test code 1.97 mIU/L Reference Ra nge > = 3016-3) or = 20 Years 0.40-4.50 Range s First trimester 0.26-2.66 Secon d trimester 0.55-2.73 Third trimester 0.43-2.91 RAC (test code Performing = RAC) Organization Information: Site ID: BEBA Name: [facility] Address: [address] [place] [address] Director: [facility] HospitalUA RFLX MICR CULT IF [id number] 18:48:00 Test Item Value Reference Range Interpretation [...] LACT) 0.7 mmol/L 0.7-2.0 N LIVER FUNCTION [id number] 15:14:00 Test Item Value Reference Range Interpretation [...] U/L 38-126 N (test code = ALKP) [id number] 15:14:00 Test Item Value Reference Range Interpretation [...] ~~~~~~~~~~~~ ~~~~~~~~~~~~~~~ ~~~~~~~~~~~~ ~~~~~~~~~~~~~~~ ~ BASIC METABOLIC [id number] 15:14:00 Test Item Value Reference Range Interpretation [...] = HEMINDEX) - CT ABD PELVIS W/O [id number] 14:53:00 [facility] 1970 Sex: F FAX: Debo Gutierrez [place]: St: REG Name: HERSON JACKSON [facility] : 1970 Age/S: 51/F [address] Unit: [id number] Loc: [place] [address] Phys: Debo Gutierrez Acct: [id number] Dis Date: Status: REG ER PHONE #: [phone] Exam Date: 08/08/2021 0175 FAX #: [phone] Reason: flank pain EXAMS: CPT CODE: [id number] CT ABD PELVIS W/O CONT 42241 EXAM: CT abdomen and pelvis without contrast [...] Sig kady Report (CONTINUED) FAX: Debo Gutierrez [place]: St: REG Name: HERSON JACKSON [facility] : 1970 Age/S: 51/F [address] Unit: [id number] Loc: [place] [address] Phys: Debo Gutierrez Acct: [id number] Dis Date: Status: REG ER PHONE #: [phone] Exam Date: 08/08/2021 1435 FAX #: Reason: flank pain EXAMS: CPT CODE: [id number] CT ABD PELVIS W/O CONT 19373 (Continued) nephrolithiasis . Evaluation of the bladder [...] 2 Signed Report (CONTINUED) FAX: Debo Gutierrez [place]: St: REG Name: HERSON JACKSON [facility] : 1970 Age/S: 51/F [address] Unit: [id number] Loc: [place] [address] Phys: Debo Gutierrez Acct: [id number] Dis Date: Status: REG ER PHONE #: [phone] Exam Date: FAX #: [phone] Reason: flank pain EXAMS: CPT CODE: [id number] CT ABD PELVIS W/O CONT 76712(Continued) CC: Debo Gutierrez Technologist: Debo Ortiz; SCOTT BENAVIDES [facility] Dt/Tm: 08/08/2021 (0208) t.VIANCAR.HPD Orig Print D/T: S: 08/08/2021 (9666 PAGE 3 Signed ReportCBC W/AUTO [id number] 14:21:00 Test Item Value Reference Range Interpretation [...] 3/uL 0.0-0.1 N - XR CHEST 1 [id number] 13:50:00 [facility] 1970 Sex: F FAX: Debo Gutierrez [place]: St: PRE Name: HERSON JACKSON [facility] : 1970 Age/S: 51/F [address] Unit #: [id number] Loc: [place] [address] Phys: Debo Gutierrez Acct: [id number] Dis Date:Status: PRE ER PHONE #: [phone] Exam Date: 08/08/2021 1340 FAX #: [phone] Reason: CODE SEPSIS EXAMS: CPT CODE: [id number] XR CHEST 1 V 89428 CHEST 1 VIEW: INDICATION: CODE SEPSIS COMPARISON:There [...] GILLIS; STUDENT 2ND YEAR Trnscrd Date/Time/By: 08/08/2021 (4330) : By: [email or web address] PAGE 1 Signed Report FAX: Debo Gutierrez [place]: St: PRE -- Name: SHERITA JACKSONISTINA [facility] : 1970 Age/S: 51/F [address] Unit #: [id number] Loc: [place] [address] Phys: Debo Gutierrez Acct: [id number] Dis Date: Status: PRE ER PHONE #: [phone] Exam Date: 08/08/2021 1340 FAX #: [phone] Reason: CODE SEPSIS EXAMS: CPT CODE: [id number] XR CHEST 1 V 50988 (Continued) Orig Print D/T: S: 08/08/2021 (1413) PAGE 2 Signed ReportTHINPREP TIS PAP AND HPV mRNA E6/E7 REFLEX HPV 16,18/45 2021-06-19 18:43:00 Test Item Value Reference Interpretation Comments Range Clinical information None gi niurka (test code = 92345-5) Date of last NONE GIVEN menstrual period (test code = 8665-2) Prev. pap: (test code NONE G IVEN = 77812-4) Prev. bx: (test code NONE GI NIURKA = 60554-3) Source (test code = None giv en 21956-1) Statement of adequacy Satisf actory for (test code = 60983-4) evalua tion.Endocervi cony/transformat ion zone componentpresen t.Age and/or menstrua l status not prov ided Interpretation/result Negati ve for : (test code = intraepitheli al 16703-7) lesion or malignancy. Comment (test code = This Pa p test has ) been evaluated with computerassiste d technology. Review PMT, CT(ASCP)CT kelp gatherer screening l ocation: (test code = 39336-1) [facility] [address], [place] [address] 2 Comment (test code = EXPLANA TORY NOTE: 9047136) The Pap is a screening test for [...] Detected Not Detected Methodo logy: code = 95106-7) Transcriptio n-Mediat ed Amplificatio n This assay dete cts E6/E7 viral messenger RNA ( mRNA) from 14high-ris k HPV types (16,18,31,33,35 ,39,4 5,51,52,56,58,5 9,66, 68). The analyt ical performance characteristics of thisassay have been determined by [employer].The modifications h ave not been cleare d or approvedby the FDA. This assay has been validated pursu antto the CLIA regula tions and is used forclinical purposes. For additional information, pl ease refer tohttp://educat ion.[employer] .com/ faq/NXK955b4(Th is link if provide d for information/edu catio nal purposes on ly.) JACEK (test code = RAC) Performing Organization Information: Site ID: TIM Name: [facility] Address: [address] [place] [address] Director: Dr. Rajinder Grant Site ID: RGA Name: [facility] Address: [address] [place] [address] Director: Rajinder Grant [facility] HPV mRNA E6/E7 REFLEX HPV 16,18/45 2021-06-19 18:43:00 Test Item Value Reference Interpretation Comments Range Clinical information None gi niurka (test code = 60490-9) Date of last NONE GIVEN menstrual period (test code = 8665-2) Prev. pap: (test code NONE G IVEN = 01054-0) Prev. bx: (test code NONE GI NIURKA = 11866-0) Source (test code = None giv en ) Statement of adequacy Satisf actory for (test code = 64847-6) evalua tion.Endocervi cony/transformat ion zone componentpresen t.Age and/or menstrua l status not prov ided Interpretation/result Negati ve for : (test code = intraepithe[place] 14259-4) lesion or malignancy. Comment (test code = This Pa p test has ) been evaluated with computerassiste d technology. Review PMT, CT(ASCP)CT kelp gatherer screening l ocation: (test code = 46868-9) [facility] [place] [address], [facility] [address] 2 Comment (test code = EXPLANA TORY NOTE: 7737364) The Pap is a screening test for [...] Detected Not Detected Methodo logy: code = 37979-2) Transcriptio n-Mediat ed Amplificatio n This assay dete cts E6/E7 viral messenger RNA ( mRNA) from 14high-ris k HPV types (16,18,31,33,35 ,39,4 5,51,52,56,58,5 9,66, 68). The analyt ical performance characteristics of thisassay have been determined by [employer].The modifications h ave not been cleare d or approvedby the FDA. This assay has been validated pursu antto the CLIA regula tions and is used forclinical purposes. For additional information, pl ease refer tohttp://educat ion.[employer] .[employer]/ faq/YMF044k2(Th is link if provide d for information/edu catio nal purposes on ly.) RAC (test code = RAC) Performing Organization Information: Site ID: IG Name: [facility] Address: [address] [place] [address] Director: Dr. Rajinder Grant Site ID: RGA Name: [facility] Address: [address] [place] [address] Director: Rajinder Grant [facility] PAP [facility] HPV mRNA E6/E7 REFLEX HPV 16,18/45 2021-06-19 18:43:00 Test Item Value Reference Interpretation Comments Range Clinical information None gi niurka (test code = 29243-3) Date of last NONE GIVEN menstrual period (test code = 8665-2) Prev. pap: (test code NONE G IVEN = 55294-0) Prev. bx: (test code NONE GI NIURKA = 42760-7) Source (test code = None giv en ) Statement of adequacy Satisf actory for (test code = 60138-6) evalua tion.Endocervi cony/transformat ion zone componentpresen t.Age and/or menstrua l status not prov ided Interpretation/result Negati ve for : (test code = intraepitheli al 33689-9) lesion or malignancy. Comment (test code = This Pa p test has ) been evaluated with computerassiste d technology. Review PMT, CT(ASCP)CT kelp gatherer screening l ocation: (test code = 16204-1) [facility] [place] [address] [place] [address], [facility] [address] 2 Comment (test code = EXPLANA TORY NOTE: 5055734) The Pap is a screening test for [...] Detected Not Detected Methodo logy: code = 77320-3) Transcriptio n-Mediat ed Amplificatio n This assay dete cts E6/E7 viral messenger RNA ( mRNA) from 14high-ris k HPV types (16,18,31,33,35 ,39,4 5,51,52,56,58,5 9,66, 68). The analyt ical performance characteristics of thisassay have been determined by [employer].The modifications h ave not been cleare d or approvedby the FDA. This assay has been validated pursu antto the CLIA regula tions and is used forclinical purposes. For additional information, pl ease refer tohttp://educat ion.[employer] .[employer]/ faq/CKX947l1(Th is link if provide d for information/edu catio nal purposes on ly.) JACEK (test code = JAECK) Performing Organization Information: Site ID: IG Name: [facility] Address: [address] [place] [address] Director: Dr. Rajinder Grant Site ID: RGA Name: [facility] Address: [address] [place] [address] Director: Rajinder Grant [facility]IN[facility] T[facility] PAP AND HPV mRNA E6/E7 REFLEX HPV 16,18/45 2021-06-19 18:43:00 Test Item Value Reference Interpretation Comments Range Clinical information None gi niurka (test code = 82390-7) Date of last NONE GIVEN menstrual period (test code = 8665-2) Prev. pap: (test code NONE G IVEN = 14954-8) Prev. bx: (test code NONE GI NIURKA = 82361-9) Source (test code = None giv en ) Statement of adequacy Satisf actory for (test code = 35356-9) evalua tion.Endocervi cony/transformat ion zone componentpresen t.Age and/or menstrua l status not prov ided Interpretation/result Negati ve for : (test code = intraepitheli al 70358-4) lesion or malignancy. Comment (test code = This Pa p test has ) been evaluated with computerSupercelliste d technology. Review PMT, CT(ASCP)CT kelp gatherer screening l ocation: (test code = 00954-1) [facility] [address], [place] [address] 2 Comment (test code = VIRGILIO CASTELLANO NOTE: 7253025) The Pap is a screening test for [...] Detected Not Detected Methodo logy: code = 46141-2) Transcriptio n-Mediat ed Amplificatio n This assay dete cts E6/E7 viral messenger RNA ( mRNA) from 14high-ris k HPV types (16,18,31,33,35 ,39,4 5,51,52,56,58,5 9,66, 68). The analyt ical performance characteristics of thisassay have been determined by [employer].The modifications h ave not been cleare d or approvedby the FDA. This assay has been validated pursu antto the CLIA regula tions and is used forclinical purposes. For additional information, pl ease refer tohttp://educat ion.[employer] .[employer]/ faq/TGI116x6(Th is link if provide d for information/edu catio nal purposes on ly.) RAC (test code = RAC) Performing Organization Information: Site ID: IG Name: [facility] Address: [address] [place] [address] Director: Dr. Rajinder Grant Site ID: RGA Name: [facility] Address: [address] [place] [address] Director: Rajinder Grant [facility] T[facility] PAP AND HPV mRNA E6/E7 REFLEX HPV 16,18/45 2021-06-19 18:43:00 Test Item Value Reference Interpretation Comments Range Clinical information None gi niurka (test code = 60018-5) Date of last NONE GIVEN menstrual period (test code = 8665-2) Prev. pap: (test code NONE G IVEN = 92139-6) Prev. bx: (test code NONE GI NIURKA = 84686-5) Source (test code = None giv en ) Statement of adequacy Satisf actory for (test code = 60156-1) evalua tion.Endocervi cony/transformat ion zone componentpresen t.Age and/or menstrua l status not prov ided Interpretation/result Negati ve for : (test code = intraepitheli al 69738-8) lesion or malignancy. Comment (test code = This Pa p test has ) been evaluated with computerassiste d technology. Review PMT, CT(ASCP)CT kelp gatherer screening l ocation: (test code = 47913-4) [facility] [address], [facility] [address] 2 Comment (test code = EXPLANA TORY NOTE: 9167263) The Pap is a screening test for [...] Detected Not Detected Methodo logy: code = 39870-4) Transcriptio n-Mediat ed Amplificatio n This assay dete cts E6/E7 viral messenger RNA ( mRNA) from 14high-ris k HPV types (16,18,31,33,35 ,39,4 5,51,52,56,58,5 9,66, 68). The fletcher tical performance characteristics of thisassay have been determined by [employer].The modifications h ave not been cleare d or approvedby the FDA. This assay has been validated pursu antto the CLIA regula tions and is used forclinical purposes. For additional information, pl ease refer tohttp://educat ion.[employer] .[employer]/ faq/EGQ603r9(Th is link if provide d for information/edu catio nal purposes on ly.) RAC (test code = RAC) Performing Organization Information: Site ID: IG Name: [facility] Address: [address] [place] [address] Director: Dr. Rajinder Grant Site ID: RGA Name: [facility] Address: [address] [place] [address] Director: Rajnider Grant [facility] PAP AND HPV mRNA E6/E7 REFLEX HPV 16,18/45 2021-06-19 18:43:00 Test Item Value Reference Interpretation Comments Range Clinical information None gi niurka (test code = 78590-3) Date of last NONE GIVEN menstrual period (test code = 8665-2) Prev. pap: (test code NONE G IVEN = 83995-1) Prev. bx: (test code NONE GI NIURKA = 11406-1) Source (test code = None giv en ) Statement of adequacy Satisf actory for (test code = 45794-4) evalua tion.Endocervi cony/transformat ion zone componentpresen t.Age and/or menstrua l status not prov ided Interpretation/result Negati ve for : (test code = intraepitheli al 15425-8) lesion or malignancy. Comment (test code = This Pa p test has ) been evaluated with computerassiste d technology. Review PMT, CT(ASCP)CT kelp gatherer screening l ocation: (test code = 45058-3) [address], [facility] [address] 2 Comment (test code = EXPLANA TORY NOTE: 9540054) The Pap is a screening test for [...] Detected Not Detected Methodo logy: code = 09035-4) Transcriptio n-Mediat ed Amplificatio n This assay dete cts E6/E7 viral messenger RNA ( mRNA) from 14high-ris k HPV types (16,18,31,33,35 ,39,4 5,51,52,56,58,5 9,66, 68). The analyt ical performance characteristics of thisassay have been determined by [employer].The modifications h ave not been cleare d or approvedby the FDA. This assay has been validated pursu antto the CLIA regula tions and is used forclinical purposes. For additional information, pl ease refer tohttp://educat ion.[employer] .[employer]/ faq/JYM548f3(Th is link if provide d for information/edu catio nal purposes on ly.) JACEK (test code = RAC) Performing Organization Information: Site ID: IG Name: [facility] Address: [address] [place] [address] Director: Dr. Rajinder Grant Site ID: RGA Name: [facility] Address: [address] [place] [address] Director: Rajinder Grant [facility] T[facility] PAP AND HPV mRNA E6/E7 REFLEX HPV 16,18/45 2021-06-19 18:43:00 Test Item Value Reference Interpretation Comments Range Clinical information None gi niurka (test code = 42734-8) Date of last NONE GIVEN menstrual period (test code = 8665-2) Prev. pap: (test code NONE G IVEN = 01684-5) Prev. bx: (test code NONE GI NIURKA = 21773-4) Source (test code = None giv en ) Statement of adequacy Satisf actory for (test code = 96281-2) evalua tion.Endocervi cony/transformat ion zone componentpresen t.Age and/or menstrua l status not prov ided Interpretation/result Negati ve for : (test code = intraepitheli al 88927-8) lesion or malignancy. Comment (test code = This Pa p test has ) been evaluated with computerassiste d technology. Review PMT, CT(ASCP)CT kelp gatherer screening l ocation: (test code = 98177-9) [facility] [address], [place] [address] Comment (test code = EXPLANA TORY NOTE: 3562529) The Pap is a screening test for [...] Detected Not Detected Methodo logy: code = 07864-6) Transcriptio n-Mediat ed Amplificatio n This assay dete cts E6/E7 viral messenger RNA ( mRNA) from 14high-ris k HPV types (16,18,31,33,35 ,39,4 5,51,52,56,58,5 9,66, 68). The analyt ical performance characteristics of thisassay have been determined by [employer].The modifications h ave not been cleare d or approvedby the FDA. This assay has been validated pursu antto the CLIA regula tions and is used forclinical purposes. For additional information, pl ease refer tohttp://educat ion.[employer] .[employer]/ faq/EXA164r8(Th is link if provide d for information/edu catio nal purposes on ly.) RAC (test code = RAC) Performing Organization Information: Site ID: IG Name: [facility] Address: [address] [place] [address] Director: Dr. Rajinder Grant Site ID: RGA Name: [facility] Address: [address] [place] [address] Director: Rajinder Grant [facility] WITH REF[facility] TO [id number] 09:37:00 Test Item Value Reference Interpretation Comments Range Color, UA (test code YELLOW YELLOW = 5778-6) Appearance (test CLEAR CLEAR code = 5767-9) Specific gravity, 1.001-1.035 urine (test code = 5811-5) pH, urine (test code 5.0-8.0 = 5803-2) Glucose, urine (test NEGATIVE NEGATIVE code = 12611-6) Bilirubin, UA (test NEGATIVE NEGATIVE code = 5770-3) Ketones, UA (test NEGATIVE NEGATIVE code = 2514-8) Occult blood, urine NEGATIVE NEGATIVE (test code = 5794-3) Protein, UA (test NEGATIVE NEGATIVE code = 09538-6) Nitrite, UA (test NEGATIVE NEGATIVE code = [...] code = NONE SEEN See_Comment [Autom ated 88811-5) message] The sy stem which generated this result transmitted reference range : < OR = 2 /HPF. Th e reference range was not used to interpret this result as normal/abnormal . Squamous epithelial NONE SEEN See_Comment [Automa aydin cells, UA (test code message ] The system = 82392-3) which generated this result transmitted reference range [...] URINE, code = 630-4) ROUTINE Micro Number: [id number] Test Status: Fi nal Specimen Source [...] RAC) Organization Information: Site ID: RGA Name: [facility] Address: [address] [place] [address] Director: Rajinder Grant Lab Interpretation Abnormal (test code = 31427-7) [facility] [id number] 09:37:00 Test Item Value Reference Interpretation Comments Range Color, UA (test code YELLOW YELLOW = 5778-6) Appearance (test CLEAR CLEAR code = 5767-9) Specific gravity, 1.001-1.035 urine (test code = 5811-5) pH, urine (test code 5.0-8.0 = 5803-2) Glucose, urine (test NEGATIVE NEGATIVE code = 64398-0) Bilirubin, UA (test NEGATIVE NEGATIVE code = 5770-3) Ketones, UA (test NEGATIVE NEGATIVE code = 2514-8) Occult blood, urine NEGATIVE NEGATIVE (test code = 5794-3) Protein, UA (test NEGATIVE NEGATIVE code = 81790-1) Nitrite, UA (test NEGATIVE NEGATIVE code = [...] code = NONE SEEN See_Comment [Autom ated 73681-2) message] The sy stem which generated this result transmitted reference range : < OR = 2 /HPF. Th e reference range was not used to interpret this result as normal/abnormal . Squamous epithelial NONE SEEN See_Comment [Automa aydin cells, UA (test code message ] The system = 66812-8) which generated this result transmitted reference range [...] URINE, code = 630-4) ROUTINE Micro Number: [id number] 0 Test Status: Fi nal Specimen Source [...] RAC) Organization Information: Site ID: BEBA Name: [facility] Address: [address] [place] [address] Director: Rajinder Grant Lab Interpretation Abnormal (test code = 00753-2) [facility] TO [id number] 09:37:00 Test Item Value Reference Interpretation Comments Range Color, UA (test code YELLOW YELLOW = 5778-6) Appearance (test CLEAR CLEAR code = 5767-9) Specific gravity, 1.001-1.035 urine (test code = 5811-5) pH, urine (test code 5.0-8.0 = 5803-2) Glucose, urine (test NEGATIVE NEGATIVE code = 40798-6) Bilirubin, UA (test NEGATIVE NEGATIVE code = 5770-3) Ketones, UA (test NEGATIVE NEGATIVE code = 2514-8) Occult blood, urine NEGATIVE NEGATIVE (test code = 5794-3) Protein, UA (test NEGATIVE NEGATIVE code = 76906-5) Nitrite, UA (test NEGATIVE NEGATIVE code = [...] code = NONE SEEN See_Comment [Autom ated 15736-9) message] The sy stem which generated this result transmitted reference range : < OR = 2 /HPF. Th e reference range was not used to interpret this result as normal/abnormal . Squamous epithelial NONE SEEN See_Comment [Automa aydin cells, UA (test code message ] The system = 72414-1) which generated this result transmitted reference range [...] URINE, code = 630-4) ROUTINE Micro Number: [id number] 0 Test Status: Fi nal Specimen Source [...] = Performing RAC) Organization Information: Site ID: [facility] Name: [facility] Address: [address] [place] [address] Director: Rajinder Grant Lab Interpretation Abnormal (test code = 96016-3) [facility] WITH REFLEX TO [id number] 09:37:00 Test Item Value Reference Interpretation Comments Range Color, UA (test code YELLOW YELLOW = 5778-6) Appearance (test CLEAR CLEAR code = 5767-9) Specific gravity, 1.001-1.035 urine (test code = 5811-5) pH, urine (test code 5.0-8.0 = 5803-2) Glucose, urine (test NEGATIVE NEGATIVE code = 96108-8) Bilirubin, UA (test NEGATIVE NEGATIVE code = 5770-3) Ketones, UA (test NEGATIVE NEGATIVE code = 2514-8) Occult blood, urine NEGATIVE NEGATIVE (test code = 5794-3) Protein, UA (test NEGATIVE NEGATIVE code = 93236-6) Nitrite, UA (test NEGATIVE NEGATIVE code = [...] code = NONE SEEN See_Comment [Autom ated 63419-8) message] The sy stem which generated this result transmitted reference range : < OR = 2 /HPF. Th e reference range was not used to interpret this result as normal/abnormal . Squamous epithelial NONE SEEN See_Comment [Automa aydin cells, UA (test code message ] The system = 22437-1) which generated this result transmitted reference range : < OR = 5 /HPF. Th e reference range was not used to interpret this result as normal/abnormal . Bacteria, UA (test NONE SEEN NONE SEEN /HPF code = 5769-5) Hyaline casts, UA NONE SEEN NONE SEEN /LPF (test code = 5796-8) Urine culture (test SEE NOTE A CULTUR E, URINE, code = 630-4) ROUTINE Micro Number: [id number] 0 Test Status: Fi nal Specimen Source [...] RAC) Organization Information: Site ID: RGA Name: [facility] Address: [address] [place] [address] Director: Rajinder Grant Lab Interpretation Abnormal (test code = 36546-1) [facility] WITH REFLEX TO [id number] 09:37:00 Test Item Value Reference Interpretation Comments Range Color, UA (test code YELLOW YELLOW = 5778-6) Appearance (test CLEAR CLEAR code = 5767-9) Specific gravity, 1.001-1.035 urine (test code = 5811-5) pH, urine (test code 5.0-8.0 = 5803-2) Glucose, urine (test NEGATIVE NEGATIVE code = 81022-2) Bilirubin, UA (test NEGATIVE NEGATIVE code = 5770-3) Ketones, UA (test NEGATIVE NEGATIVE code = 2514-8) Occult blood, urine NEGATIVE NEGATIVE (test code = 5794-3) Protein, UA (test NEGATIVE NEGATIVE code = 18388-7) Nitrite, UA (test NEGATIVE NEGATIVE code = [...] code = NONE SEEN See_Comment [Autom ated 35404-4) message] The sy stem which generated this result transmitted reference range : < OR = 2 /HPF. Th e reference range was not used to interpret this result as normal/abnormal . Squamous epithelial NONE SEEN See_Comment [Automa aydin cells, UA (test code message ] The system = 13380-3) which generated this result transmitted reference range [...] URINE, code = 630-4) ROUTINE Micro Number: [id number] Test Status: Fi nal Specimen Source [...] RAC) Organization Information: Site ID: RGRd Name: [facility] Address: [address] [place] [address] Director: Rajinder Grant Lab Interpretation Abnormal (test code = 54173-0) [facility] WITH REFLEX TO [id number] 09:37:00 Test Item Value Reference Interpretation Comments Range Color, UA (test code YELLOW YELLOW = 5778-6) Appearance (test CLEAR CLEAR code = 5767-9) Specific gravity, 1.001-1.035 urine (test code = 5811-5) pH, urine (test code 5.0-8.0 = 5803-2) Glucose, urine (test NEGATIVE NEGATIVE code = 27504-9) Bilirubin, UA (test NEGATIVE NEGATIVE code = 5770-3) Ketones, UA (test NEGATIVE NEGATIVE code = 2514-8) Occult blood, urine NEGATIVE NEGATIVE (test code = 5794-3) Protein, UA (test NEGATIVE NEGATIVE code = 93155-6) Nitrite, UA (test NEGATIVE NEGATIVE code = [...] code = NONE SEEN See_Comment [Autom ated 66367-8) message] The sy stem which generated this result transmitted reference range : < OR = 2 /HPF. Th e reference range was not used to interpret this result as normal/abnormal . Squamous epithelial NONE SEEN See_Comment [Automa aydin cells, UA (test code message ] The system = 47919-2) which generated this result transmitted reference range [...] URINE, code = 630-4) ROUTINE Micro Number: [id number] 0 Test Status: Fi nal Specimen Source [...] RAC) Organization Information: Site ID: BEBA [facility]: [facility] Address: [address] [place] [address] Director: Rajinder Grant Lab Interpretation Abnormal (test code = 91543-6) [facility] WITH REFLEX TO [id number] 09:37:00 Test Item Value Reference Interpretation Comments Range Color, UA (test code YELLOW YELLOW = 5778-6) Appearance (test CLEAR CLEAR code = 5767-9) Specific gravity, 1.009 1.001-1.035 urine (test code = 5811-5) pH, urine (test code 7.0 5.0-8.0 = 5803-2) Glucose, urine (test NEGATIVE NEGATIVE code = 92546-3) Bilirubin, UA (test NEGATIVE NEGATIVE code = 5770-3) Ketones, UA (test NEGATIVE NEGATIVE code = 2514-8) Occult blood, urine NEGATIVE NEGATIVE (test code = 5794-3) Protein, UA (test NEGATIVE NEGATIVE code = 23498-1) Nitrite, UA (test NEGATIVE NEGATIVE code = [...] code = NONE SEEN See_Comment [Autom ated 03800-4) message] The sy stem which generated this result transmitted reference range : < OR = 2 /HPF. Th e reference range was not used to interpret this result as normal/abnormal . Squamous epithelial NONE SEEN See_Comment [Automa aydin cells, UA (test code message ] The system = 43665-1) which generated this result transmitted reference range [...] URINE, code = 630-4) ROUTINE Micro Number: [id number] 0 Test Status: Fi nal Specimen Source [...] RAC) Organization Information: Site ID: BEBA Name: [facility] Address: [address] [place] [address] Director: Rajinder Grant Lab Interpretation Abnormal (test code = 03621-8) [facility] urinalysis [id number] 18:20:00 Test Item Value Reference Range Interpretation Comments Color urine, POC (test Straw code = 8582340) Clarity urine, POC (test Clear code = 9410692) Glucose urine, POC (test Negative Negative code = 7688450) Bilirubin urine, POC Negative Negative (test code = 9588430) Ketones urine, POC (test Negative Negative code = 5463703) Specific gravity urine, 1.005-1.030 POC (test code = 8489620) Blood urine, POC (test Trace Negative A code = 5301871) pH urine, POC (test code See_Comment [A utomated message] = 4712530) The system whic h generated this result transmitted ref erence range: 5.0, 5.5 , 6.0, 6.5, 7.0, 7.5, 8.0, 8.5. The refere nce range was not u sed to interpret this result as normal/abnor mal. Protein urine, POC (test Negative Negative code = 7234024) Urobilinogen urine, POC <2.0 See_Comment [Au tomated message] (test code = 1533897) The sy stem which generated this result transmitted ref erence range: <=2.0. T he reference range was not used to int erpret this result as normal/abnormal . Nitrite urine, POC (test Negative Negative code = 5680781) Leukocyte esterase Negative Negative urine, POC (test code = 7326668) Lab Interpretation (test Abnormal code = 95623-6) [facility] urinalysis [id number] 18:20:00 Test Item Value Reference Range Interpretation Comments Color urine, POC (test Straw code = 3600571) Clarity urine, POC (test Clear code = 6156539) Glucose urine, POC (test Negative Negative code = 5603155) Bilirubin urine, POC Negative Negative (test code = 0211665) Ketones urine, POC (test Negative Negative code = 2843303) Specific gravity urine, 1.005-1.030 POC (test code = 5676284) Blood urine, POC (test Trace Negative A code = 5104933) pH urine, POC (test code See_Comment [A utomated message] = 4603751) The system [employer] generated this result transmitted ref erence range: 5.0, 5.5 , 6.0, 6.5, 7.0, 7.5, 8.0, 8.5. The refere nce range was not u sed to interpret this result as normal/abnor mal. Protein urine, POC (test Negative Negative code = 0997576) Urobilinogen urine, POC <2.0 See_Comment [Au tomated message] (test code = 3578332) The sy stem which generated this result transmitted ref erence range: <=2.0. T he reference range was not used to int erpret this result as normal/abnormal . Nitrite urine, POC (test Negative Negative code = 7271366) Leukocyte esterase Negative Negative urine, POC (test code = 1028159) Lab Interpretation (test Abnormal code = 37117-7) [facility] urinalysis [id number] 18:20:00 Test Item Value Reference Range Interpretation Comments Color urine, POC (test Straw code = 6520490) Clarity urine, POC (test Clear code = 1436136) Glucose urine, POC (test Negative Negative code = 1398820) Bilirubin urine, POC Negative Negative (test code = 5529844) Ketones urine, POC (test Negative Negative code = 8687876) Specific gravity urine, 1.005-1.030 POC (test code = 8914126) Blood urine, POC (test Trace Negative A code = 4184005) pH urine, POC (test code See_Comment [A utomated message] = 2236261) The system [employer] generated this result transmitted ref erence range: 5.0, 5.5 , 6.0, 6.5, 7.0, 7.5, 8.0, 8.5. The refere nce range was not u sed to interpret this result as normal/abnor mal. Protein urine, POC (test Negative Negative code = 6829217) Urobilinogen urine, POC <2.0 See_Comment [Au tomated message] (test code = 1739080) The sy stem which generated this result transmitted ref erence range: <=2.0. T he reference range was not used to int erpret this result as normal/abnormal . Nitrite urine, POC (test Negative Negative code = 5634714) Leukocyte esterase Negative Negative urine, POC (test code = 1829703) Lab Interpretation (test Abnormal code = 42289-1) [facility] urinalysis [id number] 18:20:00 Test Item Value Reference Range Interpretation Comments Color urine, POC (test Straw code = 7360836) Clarity urine, POC (test Clear code = 8616559) Glucose urine, POC (test Negative Negative code = 3747073) Bilirubin urine, POC Negative Negative (test code = 5653587) Ketones urine, POC (test Negative Negative code = 3630229) Specific gravity urine, 1.005-1.030 POC (test code = 1734091) Blood urine, POC (test Trace Negative A code = 9524521) pH urine, POC (test code See_Comment [A utomated message] = 9473860) The system [employer] h generated this result transmitted ref erence range: 5.0, 5.5 , 6.0, 6.5, 7.0, 7.5, 8.0, 8.5. The refere nce range was not u sed to interpret this result as normal/abnor mal. Protein urine, POC (test Negative Negative code = 8095486) Urobilinogen urine, POC <2.0 See_Comment [Au tomated message] (test code = 9921400) The sy stem which generated this result transmitted ref erence range: <=2.0. T he reference range was not used to int erpret this result as normal/abnormal . Nitrite urine, POC (test Negative Negative code = 9605627) Leukocyte esterase Negative Negative urine, POC (test code = 4569573) Lab Interpretation (test Abnormal code = 36685-1) [facility] urinalysis [id number] 18:20:00 Test Item Value Reference Range Interpretation Comments Color urine, POC (test Straw code = 9771991) Clarity urine, POC (test Clear code = 1943883) Glucose urine, POC (test Negative Negative code = 3605485) Bilirubin urine, POC Negative Negative (test code = 0814824) Ketones urine, POC (test Negative Negative code = 2460816) Specific gravity urine, 1.005-1.030 POC (test code = 8181108) Blood urine, POC (test Trace Negative A code = 9051529) pH urine, POC (test code See_Comment [A utomated message] = 5868994) The system [employer] generated this result transmitted ref erence range: 5.0, 5.5 , 6.0, 6.5, 7.0, 7.5, 8.0, 8.5. The refere nce range was not u sed to interpret this result as normal/abnor mal. Protein urine, POC (test Negative Negative code = 9223989) Urobilinogen urine, POC <2.0 See_Comment [Au tomated message] (test code = 9447493) The [employer] stem which generated this result transmitted ref erence range: <=2.0. T he reference range was not used to int erpret this result as normal/abnormal . Nitrite urine, POC (test Negative Negative code = 8200247) Leukocyte esterase Negative Negative urine, POC (test code = 8668048) Lab Interpretation (test Abnormal code = 85409-8) [facility] urinalysis [id number] 18:20:00 Test Item Value Reference Range Interpretation Comments Color urine, POC (test Straw code = 3989383) Clarity urine, POC (test Clear code = 7691159) Glucose urine, POC (test Negative Negative code = 2030619) Bilirubin urine, POC Negative Negative (test code = 7413750) Ketones urine, POC (test Negative Negative code = 3192001) Specific gravity urine, 1.005-1.030 POC (test code = 9423401) Blood urine, POC (test Trace Negative A code = 2510314) pH urine, POC (test code See_Comment [A utomated message] = 3115085) The system [employer] generated this result transmitted ref erence range: 5.0, 5.5 , 6.0, 6.5, 7.0, 7.5, 8.0, 8.5. The refere nce range was not u sed to interpret this result as normal/abnor mal. Protein urine, POC (test Negative Negative code = 3705809) Urobilinogen urine, POC <2.0 See_Comment [Au tomated message] (test code = 6610140) The sy stem which generated this result transmitted ref erence range: <=2.0. T he reference range was not used to int erpret this result as normal/abnormal . Nitrite urine, POC (test Negative Negative code = 0737953) Leukocyte esterase Negative Negative urine, POC (test code = 9022240) Lab Interpretation (test Abnormal code = 41482-2) [facility] urinalysis [id number] 18:20:00 Test Item Value Reference Range Interpretation Comments Color urine, POC (test Straw code = 7391351) Clarity urine, POC (test Clear code = 5306853) Glucose urine, POC (test Negative Negative code = 7078740) Bilirubin urine, POC Negative Negative (test code = 2530852) Ketones urine, POC (test Negative Negative code = 5129375) Specific gravity urine, 1.015 1.005-1.030 POC (test code = 5456742) Blood urine, POC (test Trace Negative A code = 3354559) pH urine, POC (test code 8.0 See_Comment [A utomated message] = 3298900) The system [employer] h generated this result transmitted ref erence range: 5.0, 5.5 , 6.0, 6.5, 7.0, 7.5, 8.0, 8.5. The refere nce range was not u sed to interpret this result as normal/abnor mal. Protein urine, POC (test Negative Negative code = 1376053) Urobilinogen urine, POC <2.0 <=2.0 (test code = 7003609) Nitrite urine, POC (test Negative Negative code = 8690392) Leukocyte esterase Negative Negative urine, POC (test code = 9211292) Lab Interpretation (test Abnormal code = 73288-9) [facility] [Presence] in Respiratory specimen by LATESHA with probe [id number] 09:55:01 Test Item Value Reference Range Interpretation Comments SARS-CoV-2 (COVID-19) RNA Not detected Not-Detected [Presence] in Respiratory specimen by LATESHA with probe detection (test code = 13513-8) Whether patient is employed in a healthcare setting (test code = 57946-0) Whether the patient has symptoms related to condition of interest (test code = 15398-5) Patient was hospitalized because of this condition (test code = 41643-2) Whether the patient was admitted to intensive care unit (ICU) for condition of interest (test code = 88640-2) Whether patient resides in a congregate care setting (test code = 16082-5) [facility] RNA [Presence] in Respiratory specimen by LATESHA with probe [id number] 03:07:44 Test Item Value Reference Range Interpretation Comments SARS-CoV-2 (COVID-19) RNA Not detected Not-Detected [Presence] in Respiratory specimen by LATESHA with probe detection (test code = 33198-6) Whether patient is employed in a healthcare setting (test code = 60216-0) Whether the patient has symptoms related to condition of interest (test code = 01257-8) Patient was hospitalized because of this condition (test code = 06082-4) Whether the patient was admitted to intensive care unit (ICU) for condition of interest (test code = 30944-8) Whether patient resides in a congregate care setting (test code = 62675-3) [facility]-CoV-2 (COVID-19) RNA [Presence] in Respiratory specimen by LATESHA with probe [id number] 02:34:50 Test Item Value Reference Range Interpretation Comments SARS-CoV-2 (COVID-19) RNA Not detected Not-Detected [Presence] in Respiratory specimen by LATESHA with probe detection (test code = 39076-5) Whether patient is employed in a healthcare setting (test code = 75353-0) Whether the patient has symptoms related to condition of interest (test code = 21376-7) Patient was hospitalized because of this condition (test code = 93640-7) Whether the patient was admitted to intensive care unit (ICU) for condition of interest (test code = 89681-1) Whether patient resides in a congregate care setting (test code = 64425-4) [facility]-CoV-2 (COVID-19) RNA [Presence] in Respiratory specimen by LATESHA with probe [id number] 22:46:50 Test Item Value Reference Range Interpretation Comments SARS-CoV-2 (COVID-19) RNA Not detected Not-Detected [Presence] in Respiratory specimen by LATESHA with probe detection (test code = 54336-7) [facility] (COVID-19) RNA [Presence] in Respiratory specimen by LATESHA with probe [id number] 10:19:38 Test Item Value Reference Range Interpretation Comments SARS-CoV-2 (COVID-19) RNA Not detected Not-Detected [Presence] in Respiratory specimen by LATESHA with probe detection (test code = 55936-9) [facility]-CoV-2 (COVID-19) RNA [Presence] in Respiratory specimen by LATESHA with probe [id number] 00:17:03 Test Item Value Reference Range Interpretation Comments SARS-CoV-2 (COVID-19) RNA Not detected Not-Detected [Presence] in Respiratory specimen by LATESHA with probe detection (test code = 71375-2) [facility]-CoV-2 (COVID-19) RNA [Presence] in Respiratory specimen by LATESHA with probe [id number] 00:59:15 Test Item Value Reference Range Interpretation Comments SARS-CoV-2 (COVID-19) RNA Not detected Not-Detected [Presence] in Respiratory specimen by LATESHA with probe detection (test code = 66829-6) [place] [address]+ i-STAT [id number] 08:12:00 Test Item Value Reference [...] PELVIS WITHOUT CONTRAST, RENAL STONE PROTOCOL:Location code: [id number] HISTORY: Flank painCOMPARISON: CT abdomen and pelvis [...] Range Interpretation Comments COLOR (test code = [place] YELLOW A COLU) CLARITY (test code = [...] 11:03:05CT abdomen and pelvis with contrastLocation Code: [id number] HISTORY: Lower abdominal painCOMPARISON: NoneTechnique: Helical CT [...] Date/Time Note Provider Source 2021-08-08 18:57:00-00:00 [facility] ([facility]) EMERGENCY PROVIDER REPORT REPORT#:[id number] REPORT STATUS: Signed DATE:08/08/21 TIME: 1856 PATIENT: HERSON JACKSON UNIT #: [id number] ROOM/BED: AGE: 51 SEX: F PCP PHYS: No Primary or Family Ph ysician SERVICE AUTHOR: Baldomero Stanley PA * ALL edits or amendments must be made on the Online [employer]/computer document * Baldomero Stanley 08/08/211856: HPI- Female [...] pH (5.0 - 8.0) 5.0 Ur Specific [place] (<1.030) 1.018 Urine Protein (Negative mg/dL) NEGATIVE [...] (Auto) (20.5 - 45.5 %) 15.8 L [place] % (Auto) (5.5 - 11.7 %) 9.8 Eos % (Auto) (0.9 - 2.9 %) 0.7 L Baso % (Auto) (0.2 - 1.0 %) 0.3 Neut # (Auto) (2.2 - 4.8 x10 3/uL) 6.69 H Lymph # (Auto) (1.3 - 2.9 x10 3/uL) 1.45 R[place]els # (Auto) (0.3 - 0.8 x10 3/uL) [...] No acute cardiopulmonary findings seen. Impression By: Nessa16 Camden Moore MD CAT SCAN - CT [...] by me, Pulse oximetr y normal Time 1915 ECG #1 Interpretation Date 08/08/21 Time 1353 [...] acute ischemia; the rhythm is normal sinus; NE does not demonstrate AV heart block; QRS does not demonstrate a bundle branch block; ST and T waves do not show any ST elevation to sugg est acute [place]; see [place] for details and measurements; agree with computer [...] symptoms. Pt verbalized understanding. Time of Re-Eval 1855 Re-Eval Status Improved Eval Following Treatment Pt. [...] her phone number. Her phone number is [phone]. That number did not work . I [...] doxycycline and Flagyl antib iotics at the [facility] on [facility] and [facility] with ZIP Code [address]. I instructed the patient that sh e does not have to take the Macrobid any longer. Patient verbalized understanding and states she will miner pick her prescriptions in the morning. Time of Re-Eval 0 ED Course Medication(s) Ordered Medication(s) Ordered: Anti-Infective Agents Sig/Kevin Start time Last Medication Dose Route Stop Time Status Admin Ceftriaxone Sodium 1,000 MG X1ED STA 08/08 125 7 DC 08/08 Sodium Chloride 10 ML IV [...] )( Discharged to Home Yes )( Time 1899 )( Date 08/08/21 Discharge/Care Plan Counseled Regarding Diagnosi s, Lab results, Imaging studies, Prescriptions, Need for follow-up, When to return to ED (Auto) Prescriptions Current Visit Scripts PHENAZOPYRIDINE (PYRIDIUM) 200 MG PO TID PRN PRN DYSURIA PHENAZOPYRIDINE (PYRIDIUM) 200 MG PO TID PRN NE N DYSURIA #6 TABS TAKE AFTER MEALS. DOXYCYCLINE HYCLATE (VIBRAMYCIN) 100 MG PO Q12H 14 Days #28 CAPS metroNIDAZOLE (FLAGYL) 500 MG PO BID 14 Days #28 TABS Prescriptions Reviewed Risks, Benefits, Alternat cole treatment Patient Instructions Urinary Tract Infections in Women Departure Forms [facility] [place] PCP LIST UROLOGIST LIST Discharge Note I [...] symptoms should prompt an immediate return to [facility] or the closest emergency department or a call to 911. Naren Sapp 08/09/21 0259: HPI- Female General Initial Greet Date/Time 08/08/21 1248 Patient Discharge Departure Supervising Physician Note MidLv Saw Pt Alone I have reviewed the PA/SHIELD OPERATOR's note and plan of car e. I was available for consultation as needed at al l times during the patient's visit in the emergency department. Electronically Signed by Baldomero Stanley on 0 08/09/21 at 0148 at 0300 RPT #:[id number] END OF REPORT 2021-08-08 13:00:00-00:00 [facility] ([facility]) EMERGENCY PROVIDER REPORT REPORT#:[id number] REPORT STATUS: Signed DATE:08/08/21 TIME: 1300 PATIENT: HERSON JACKSON UNIT #: [id number] ROOM/BED: AGE: 51 SEX: F PCP PHYS: No Primary or Family Ph ysician SERVICE AUTHOR: Debo Gutierrez * ALL edits or amendments must be made on the Online [employer]/computer document * Debo Gutierrez 08/08/21 1300: Provider [...] status for patients 13 years old or ol john: Never Smoker Norberto Mendez 08/17/21 1148: Provider in Triage - Adult Provider in Triage Initial Greet Date/Time 08/08/21 1248 at 1302 Electronically Signed by Norberto Mendez MD on at 1200 RPT #:[id number] END OF REPORT
[2022-12-03] MEDS ORDERED: ASPIRIN 81 MG CHEWABLE TABLET ONE (23:29)
[2022-12-03 23:43] LABS: Absolute Lymphocytes (CBC) 2.7 K/uL (0.7-4.9); Hematocrit 41.9 % (36.0-45.0); Lymphocytes % 34.7 % (15.3-44.8); MCV 91.9 fL (80-100); MPV 7.9 fL (7.6-11.3); Platelets 238 thou/uL (152-406); RBC Red Blood Cell Count 4.56 M/uL (3.86-4.86)
[2022-12-03 23:53] LABS: Protime INR 1.01
[2022-12-04 00:05] LABS: ALT/SGPT 28 U/L (13-56); AST/SGOT 19 U/L (15-37); Albumin 4.1 g/dL (3.4-5.0); Alkaline Phosphatase 50 U/L (45-117); BUN Blood Urea Nitrogen 22 mg/dL (7-18); Bicarbonate 25 mEq/L (21-32); Bilirubin Total 0.2 mg/dL (0.2-1.0); Glomerular Filtration Rate 82 ml/min (=/>90); Glucose Level 98 mg/dL (74-106); NT PRO-BNP 61 pg/mL (<125); Protein, Total 7.5 g/dL (6.4-8.2); Sodium Level 139 mEq/L (136-145); Troponin High Sensitivity 3.9 pg/mL (<58.9)
[2022-12-04 00:15] LABS: Bilirubin Direct < 0.1 mg/dL (0-0.2); Bilirubin Indirect, Calculated ND mg/dL (0.2-0.8)
[2022-12-04] MEDS ORDERED: KETOROLAC 30 MG/ML INJ ONE (01:08)
--- NOTE | 2022-12-04 01:56 | ER ---
Nurse's Notes [facility] Name: Fany Meza Age: 52 yrs Sex: Female : 1970 Arrival Date: 12/03/2022 Time: 22:57 Bed 4 Private MD: Diagnosis: Chest pain, unspecified;Muscle spasm of back Presentation: 12/03 23:08 Chief complaint: Patient states: "I have been having chest pain all day today. I saw as6 the conference translator and they scheduled some more tests but they said if I am having chest pain to some to the ER". Coronavirus screen: At this time, the client does not indicate any symptoms associated with coronavirus-19. Ebola Screen: No symptoms or risks identified at this time. Initial Sepsis Screen: Does the patient meet any 2 criteria? No. Patient's initial sepsis screen is negative. Does the patient have a suspected source of infection? No. Patient's initial sepsis screen is negative. Risk Assessment: Do you want to hurt yourself or someone else? Patient reports no desire to harm self or others. Onset of symptoms was December 03, 2022. 23:08 Method Of Arrival: Ambulatory as6 23:08 Acuity: SHARAN 3 as6 Triage Assessment: 23:31 General: Appears in no apparent distress. Behavior is calm, cooperative. Pain: as6 Complains of pain in chest and left arm Pain radiates to left arm. Cardiovascular: Chest pain radiates to left arm(s). GENERAL TELLER: 23:13 LMP N/A - Post-menopause as6 Historical: - Allergies: 23:12 No Known Allergies; as6 - PMHx: 23:12 cervical cancer; Hep C , in remission; Hypertensive disorder; as6 - PSHx: 23:12 section; neck; as6 - Immunization history:: Client reports receiving the 2nd dose of the Covid vaccine, pfizer. - Social history:: Smoking status: Patient reports the use of cigarette tobacco products, smokes one-half pack cigarettes per day. Screenin/25 01:34 [facility] ED Fall Risk Assessment (Adult) Score/Fall Risk Level 0 - 2 = Low Risk. Abuse as6 screen: Denies threats or abuse. Denies injuries from another. Nutritional screening: No deficits noted. Tuberculosis screening: No symptoms or risk factors identified. Vital Signs: 12/03 23:08 BP 142 / 100; Pulse 65; Resp 18 S; Temp 98.1(TE); Pulse Ox 97% on R/A; Weight 79.38 kg as6 (R); Height 5 ft. 4 in. (R); Pain 7/; 12/04 02:10 BP 128 / 71; Pulse 61; Resp 18 S; Pulse Ox 100% on R/A; as6 12/03 23:08 Body Mass Index 30.04 (79.38 kg, 162.56 cm) as6 12/03 23:08 Pain Scale: Adult as6 ED Course: 12/03 22:59 Patient arrived in ED. jj6 23:09 Cathy Lino [facility]-C is [facility]. snw 23:09 Derick Miguel MD is Attending Physician. snw 23:12 Triage completed. as6 23:13 Arm band placed on. as6 23:29 Inserted saline lock: 20 gauge in right forearm, using aseptic technique. Blood as6 collected. 23:45 XRAY Chest (1 view) In Process Unspecified. EDMS 12/04 01:34 Santos Fritz, RN is Primary Nurse. as6 01:34 Bed in low position. Call light in reach. as6 02:04 Provided Education on: discharge teaching. as6 02:04 No provider procedures requiring assistance completed. as6 02:10 IV discontinued, intact, bleeding controlled, No redness/swelling at site. Pressure as6 dressing applied. Administered Medications: 12/03 23:28 Drug: Aspirin PO Chewable Tablet 324 mg Route: PO; as6 12/04 02:03 Follow up: Response: No adverse reaction as6 01:00 Drug: Ketorolac IVP 15 mg Route: IVP; Site: right forearm; as6 02:03 Follow up: Response: No adverse reaction as6 01:52 Drug: Triamcinolone Acetonide IM 40 mg Route: IM; Site: left deltoid; as6 02:03 Follow up: Response: No adverse reaction as6 02:03 Drug: Lidocaine Infiltration (1 %) 5 mg {Note: administered by provider.} Route: as6 Infiltration; 02:03 Follow up: Response: No adverse reaction as6 Medication: 01:35 VIS not applicable for this client. as6 Outcome: 01:56 Discharge ordered by MD. reece 02:04 Condition: stable as6 02:10 Discharged to home ambulatory. as6 02:10 Discharge instructions given to patient, Instructed on discharge instructions, follow up and referral plans. medication usage, Demonstrated understanding of instructions, follow-up care, medications, Prescriptions given X 1. 02:11 Patient left the ED. as6 Signatures: Dispatcher [employer] EDMS Cathy Lino, MICHAEL-C PACKAGING TECH-Kortney [place] jj6 Santos Fritz, SCOTTY RN as6
[2022-12-04] MEDS ORDERED: LIDOCAINE 1% MPF 5 ML VIAL ONE (01:57)
--- NOTE | 2022-12-04 01:57 | EDPHYS ---
Physician Documentation [facility] Name: Fany Meza Age: 52 yrs Sex: Female : 1970 Arrival Date: 12/03/2022 Time: 22:57 Bed 4 Private MD: ED Physician Derick Miguel HPI: 12/03 23:19 This 52 yrs old Female presents to ER via Ambulatory with complaints of Chest Pain, Arm snw Pain. 23:19 Onset: The symptoms/episode began/occurred acutely. Associated signs and symptoms: snw Pertinent positives: chest pain. The patient has experienced similar episodes in the past, seeing Cardiology, pt encouraged to come to ED prn worsening CP. 23:49 The patient or guardian reports chest pain that is located primarily in the anterior snw chest wall, left. Onset: 1 month(s) ago, and became worse today. The pain radiates to the left arm. Associated signs and symptoms: Pertinent positives: shortness of breath. The chest pain is described as aching, sharp. Duration: The patient or guardian reports multiple episodes. Severity of pain: At its worst the pain was moderate severe. The patient has been recently seen by a physician: with similar presenting complaints, echo and stress test ordered. 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 - Social history:: Smoking status: Patient reports the use of cigarette tobacco products, smokes one-half pack cigarettes per day. ROS: 23:49 Constitutional: Negative for fever, chills, and weight loss, Eyes: Negative for injury, snw pain, redness, and discharge, ENT: Negative for injury, pain, and discharge, Neck: Negative for injury, pain, and swelling, Respiratory: Negative for shortness of breath, cough, wheezing, and pleuritic chest pain, Abdomen/GI: Negative for abdominal pain, nausea, vomiting, diarrhea, and constipation, Back: Negative for injury and pain, : Negative for injury, bleeding, discharge, and swelling, MS/Extremity: Negative for injury and deformity, Skin: Negative for injury, rash, and discoloration, Neuro: Negative for headache, weakness, numbness, tingling, and seizure, Psych: Negative for depression, anxiety, suicide ideation, homicidal ideation, and hallucinations. 23:49 Cardiovascular: Positive for chest pain. Exam: 23:49 Constitutional: This is a well developed, well nourished patient who is awake, alert, snw and in no acute distress. Head/Face: Normocephalic, atraumatic. Eyes: Pupils equal round and reactive to light, extra-ocular motions intact. Lids and lashes normal. Conjunctiva and sclera are non-icteric and not injected. Cornea within normal limits. Periorbital areas with no swelling, redness, or edema. ENT: Nares patent. No nasal discharge, no septal abnormalities noted. Tympanic membranes are normal and external auditory canals are clear. Oropharynx with no redness, swelling, or masses, exudates, or evidence of obstruction, uvula midline. Mucous membranes moist. Neck: Trachea midline, no thyromegaly or masses palpated, and no cervical lymphadenopathy. Supple, full range of motion without nuchal rigidity, or vertebral point tenderness. No Meningismus. Chest/axilla: Normal chest wall appearance and motion. Nontender with no deformity. No lesions are appreciated. Cardiovascular: Regular rate and rhythm with a normal S1 and S2. No gallops, murmurs, or rubs. Normal PMI, no JVD. No pulse deficits. Respiratory: Lungs have equal breath sounds bilaterally, clear to auscultation and percussion. No rales, rhonchi or wheezes noted. No increased work of breathing, no retractions or nasal flaring. Abdomen/GI: Soft, non-tender, with normal bowel sounds. No distension or tympany. No guarding or rebound. No evidence of tenderness throughout. Back: No spinal tenderness. No costovertebral tenderness. Full range of motion. Skin: Warm, dry with normal turgor. Normal color with no rashes, no lesions, and no evidence of cellulitis. MS/ Extremity: Pulses equal, no cyanosis. Neurovascular intact. Full, normal range of motion. Neuro: Awake and alert, GCS 15, oriented to person, place, time, and situation. Cranial nerves II-XII grossly intact. Motor strength 5/5 in all extremities. Sensory grossly intact. Cerebellar exam normal. Normal gait. Psych: Awake, alert, with orientation to person, place and time. Behavior, mood, and affect are within normal limits. Vital Signs: 23:08 BP 142 / 100; Pulse 65; Resp 18 S; Temp 98.1(TE); Pulse Ox 97% on R/A; Weight 79.38 kg as6 (R); Height 5 ft. 4 in. (R); Pain 7/10; 12/04 02:10 BP 128 / 71; Pulse 61; Resp 18 S; Pulse Ox 100% on R/A; as6 12/03 23:08 Body Mass Index 30.04 (79.38 kg, 162.56 cm) as6 12/03 23:08 Pain Scale: Adult as6 Procedures: 01:30 Performed Trigger point injection to right scapular area. Pt tolerated procedure well snw and states + relief of pain, "that felt good". MDM: 12/03 23:15 Patient medically screened. snw 23:20 Differential diagnosis: abnormal EKG, acute myocardial infarction, anxiety, coronary snw artery disease gastritis, gastroesophageal reflux disease (GERD), stable angina, unstable angina. HEART Score: History: Moderately Suspicious (1), ECG: Non specific repolarization disturbance / LBTB / PM (1), Age: > 45 and < 65 years (1), Risk Factors: 1 or 2 risk factors (1), [Hypertension] [Active Smoker]. The patient was given aspirin in the Emergency Department. Data reviewed: vital signs, nurses notes. Care significantly affected by the following chronic conditions: Hypertension, Liver Disease. Counseling: I had a detailed discussion with the patient and/or guardian regarding the historical points, exam findings, and any diagnostic results supporting the discharge/admit diagnosis, the presence of at least one elevated blood pressure reading (>120/80) during this emergency department visit, lab results, radiology results, the need for outpatient follow up. 12/04 01:30 I considered the following discharge prescriptions or medication management in the [facility] emergency department Medications were administered in the Emergency Department. See MAR. Response to treatment: the patient's symptoms have mildly improved after treatment. Special discussion: Based on the patient's history, exam, and Dx evaluation, there is no indication for emergent intervention or inpatient Tx. It is understood by the patient/guardian that if the Sx's persist or worsen they need to return immediately for re-evaluation. I have referred the patient to see his PCP for further evaluation of high blood pressure. Based on the history and exam findings, there is no indication for further emergent testing or inpatient evaluation. I discussed with the patient/guardian the need to see the construction estimator for further evaluation of the symptoms. I discussed with the patient/guardian the need to see the primary care provider for further evaluation of the symptoms. 12/03 23:14 Order name: Basic Metabolic Panel; Complete Time: 00:18 w 12/03 23:14 Order name: CBC with Diff; Complete Time: 23:47 12/03 23:14 Order name: D-Dimer; Complete Time: 00:02 12/03 23:14 Order name: LFT's; Complete Time: 00:18 w 12/03 23:14 Order name: Magnesium; Complete Time: 00:18 12/03 23:14 Order name: NT PRO-BNP; Complete Time: 00:18 w 12/03 23:14 Order name: PT-INR; Complete Time: 00:02 w 12/03 23:14 Order name: Troponin HS; Complete Time: 00:18 w 12/03 23:14 Order name: XRAY Chest (1 view) 12/03 23:14 Order name: EKG; Complete Time: 23:15 12/03 23:14 Order name: Cardiac monitoring; Complete Time: 02:03 12/03 23:14 Order name: EKG - Nurse/Tech; Complete Time: :28 12/03 23:14 Order name: IV Saline Lock; Complete Time: 23:28 12/03 23:14 Order name: Labs collected and sent; Complete Time: 23:28 12/03 23:14 Order name: O2 Per Protocol; Complete Time: 02:03 12/03 23:14 Order name: O2 Sat Monitoring; Complete Time: 02:03 snw EC/24 23:18 Rate is 64 beats/min. Rhythm is regular. QRS [place] is Normal. NV interval is normal. QRS snw interval is normal. QT interval is normal. T waves are Inverted in lead III. T waves are Flattened in leads V4, V5, V6. Clinical impression: NSR w/ Non-specific ST/T Changes. Administered Medications: 23:28 Drug: Aspirin PO Chewable Tablet 324 mg Route: PO; as6 12/04 02:03 Follow up: Response: No adverse reaction as6 01:00 Drug: Ketorolac IVP 15 mg Route: IVP; Site: right forearm; as6 02:03 Follow up: Response: No adverse reaction as6 01:52 Drug: Triamcinolone Acetonide IM 40 mg Route: IM; Site: left deltoid; as6 02:03 Follow up: Response: No adverse reaction as6 02:03 Drug: Lidocaine Infiltration (1 %) 5 mg {Note: administered by provider.} Route: as6 Infiltration; 02:03 Follow up: Response: No adverse reaction as6 Disposition: 00:50 Co-signature as Attending Physician, Derick Miguel MD I agree with the assessment sp4 and plan of care. I reviewed the patient's care provided by the Advanced Practice Provider and agree with the diagnosis and treatment plan. Disposition Summary: 12/04/22 01:56 Discharge Ordered Location: Home snw Condition: Stable snw Diagnosis - Chest pain, unspecified snw - Muscle spasm of back snw Followup: snw - With: Emergency Department - When: As needed - Reason: Worsening of condition Followup: snw - With: Private Physician - When: 2 - 3 days - Reason: Recheck today's complaints, Continuance of care, Re-evaluation by your physician Discharge Instructions: - Discharge Summary Sheet snw - Nonspecific Chest Pain, Adult snw - Chest Wall Pain snw - Muscle Cramps and Spasms snw - How to Take Your Blood Pressure, [id number] snw - Aspirin and Your Heart snw - Heat Therapy snw - Form - Blood Pressure Record Sheet snw Forms: - Medication Reconciliation Form snw - Thank You Letter snw - Antibiotic Education snw - Prescription Opioid Use snw - Patient Portal Instructions snw - Leadership Thank You Letter snw Prescriptions: - orphenadrine citrate 100 mg Oral Tablet Sustained Release - take 1 tablet by ORAL route 2 times per day As needed; 20 tablet; Refills: 0, snw Product Selection Permitted Signatures: Dispatcher [employer] Cathy Hinton FNP-C INTERNAL COMMUNICATIONS INTERN-Santos Eller, RN RN as6 Derick Miguel MD MD sp4 Corrections: (The following items were deleted from the chart) 02:05 01:30 Performed Trigger point injection to right scapular area. snw snw
[2022-12-04] MEDS ORDERED: TRIAMCINOLONE ACETON 40 MG/ML VIAL ONE (01:58)
[2022-12-04 02:36] VITALS: TEMP 98.1
[2022-12-04 02:37] VITALS: BP 128/71; O2SAT 100
--- NOTE | 2022-12-04 13:52 | RAD REPORT ---
EXAM DESCRIPTION: XR Chest, 1 View CLINICAL HISTORY: The patient is 52 years old and is Female; CHEST PAIN TECHNIQUE: Frontal view of the chest. COMPARISON: No relevant prior studies available. FINDINGS: Lungs: Unremarkable. No consolidation. Pleural space: Unremarkable. No pneumothorax. Heart: Unremarkable. Mediastinum: Unremarkable. Bones/joints: Postsurgical changes in the cervical spine. IMPRESSION: No acute findings in the chest. Electronically signed by: Troy Wellington MD 12/03/2022 11:56 PM CDT Due to temporary technical issues with the PACS/Fluency reporting system, reports are being signed by the in house radiologists without review as a courtesy to insure prompt reporting. The interpreting radiologist is fully responsible for the content of the report.
--- NOTE | 2022-12-04 15:20 | EKG ---
Test Date: 2022-12-03 Test Time: 23:16:32 Trust Operations Assistant: MEASUREMENT RESULTS: Intervals: Rate: 64 MO: 136 QRSD: 76 QT: 400 QTc: 412 [place]: P: 52 MO: 136 QRS: 67 T: 3 INTERPRETIVE STATEMENTS: Normal sinus rhythm Normal ECG Compared to ECG 11/16/2022 15:21:14 ST (T wave) deviation no longer present Electronically Signed On 12-04-22 15:20:16 CDT by Dion Araujo
== END 2022-12-04 02:11 | disposition home or self-care (01) ==
LOC: ER 22:57
DX: R07.89 Other chest pain (principal); M62.830 Muscle spasm of back; I10 Essential (primary) hypertension; F17.210 Nicotine dependence, cigarettes, uncomplicated
CPT/HCPCS: 93005; 85025; 80048; 36415; 83735; 85610; 85379; 80076; 84484; 83880; 71045; 96372; 96374; 99284; J3301; J2001

== ENCOUNTER 2023-01-20 14:02 | Emergency (ER) | payer OTHER, SELFPAY ==
--- OUTSIDE RECORDS SUMMARY | 2023-01-20 14:18 | XMS REPORT | Continuity of Care Document ---
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 severe pain for up to 2 days .acute pain. Max Daily Amount: 4 tablets HYDROcodone 2021-0 2021- No [id number] 1{tbl} Q6H Take 1 [facility] -acetaminop 6-23 06-[address] [facility] ([employer]) 00:00: 04:59 [facility] 5-325 mg 00 :00 every 6 l per tablet (six) hours as needed for moderate pain or severe pain for up to 2 days .acute pain. Max Daily Amount: 4 tablets HYDROcodone 2-0 2021- No [id number] 1{tbl} Q6H Take 1 [facility] -acetaminop 6-23 06-[address] [facility] ([employer]) 00:00: 04:59 [facility] 5-325 mg 00 :00 every 6 l per tablet (six) hours as needed for moderate pain or severe pain for up to 2 days .acute pain. Max Daily Amount: 4 tablets HYDROcodone 2021-0 2021- No 1{tbl} Q6H Take 1 [facility] -acetaminop 6-23 06-[address] [facility] ([employer]) 00:00: 04:59 [facility] 5-325 mg 00 :00 every 6 l per tablet (six) hours as needed for moderate pain or severe pain for up to 2 days .acute pain. Max Daily Amount: 4 tablets HYDROcodone 2021-0 2021- No [id number] 1{tbl} Q6H Take 1 [facility] -acetaminop 6-23 06-[address] [facility] ([employer]) 00:00: 04:59 [facility] 5-325 mg 00 :00 every 6 l per tablet (six) hours as needed for moderate pain or severe pain for up to 2 days .acute pain. Max Daily Amount: 4 tablets HYDROcodone 2021-0 2021- No 1{tbl} Q6H Take 1 [facility] -acetaminop 6-23 -[address] [facility] ([employer]) 00:00: 04:59 [facility] 5-325 mg 00 :00 every 6 l per tablet (six) hours as needed for moderate pain or severe pain for up to 2 days .acute pain. Max Daily Amount: 4 tablets HYDROcodone 2021-0 2021- 1{tbl} Q6H Take 1 [facility] -acetaminop 6-23 -[address] [facility] ([employer]) 00:00: 04:59 [facility] 5-325 mg 00 :00 every 6 l per tablet (six) hours as needed for moderate pain or severe pain for up to 2 days .acute pain. Max Daily Amount: 4 tablets HYDROcodone 2021-0 2021- No 1{tbl} Q6H Take 1 [facility] -acetaminop 6-21 06-[address] [facility] ([employer]) 00:00: 00:00 [facility] 5-325 mg 00 :00 every 6 l per tablet (six) hours as needed for moderate pain or severe pain for up to 2 days .acute pain. Max Daily Amount: 4 tablets HYDROcodone 2021-0 No 1{tbl} Q6H Take 1 [facility] -acetaminop 6-21 06-[address] [employer]) 00:00: 00:00 [facility] 5-325 mg 00 :00 every 6 l per tablet (six) hours as needed for moderate pain or severe pain for up to 2 days .acute pain. Max Daily Amount: 4 tablets HYDROcodone 2021-0 2021- No 1{tbl} Q6H Take 1 [facility] -acetaminop 6-21 06-[address] [facility] ([employer]) 00:00: 00:00 [facility] 5-325 mg 00 :00 every 6 l per tablet (six) hours as needed for moderate pain or severe pain for up to 2 days .acute pain. Max Daily Amount: 4 tablets HYDROcodone 2021-0 2021- No 1{tbl} Q6H Take 1 [facility] -acetaminop 6-21 06-[address] [facility] ([employer]) 00:00: 00:00 [facility] 5-325 mg 00 :00 every 6 l per tablet (six) hours as needed for moderate pain or severe pain for up to 2 days .acute pain. Max Daily Amount: 4 tablets HYDROcodone 2021-0 2021- 1{tbl} Q6H Take 1 [facility] -acetaminop 6-21 06-[address] [facility] ([employer]) 00:00: 00:00 [facility] 5-325 mg 00 :00 every 6 l per tablet (six) hours as needed for moderate pain or severe pain for up to 2 days .acute pain. Max Daily Amount: 4 tablets HYDROcodone 2021-0 2021- No 1{tbl} Q6H Take 1 [facility] -acetaminop 6-21 06-[address] [facility] ([employer]) 00:00: 00:00 [facility] 5-325 mg 00 :00 every 6 l per tablet (six) hours as needed for moderate pain or severe pain for up to 2 days .acute pain. Max Daily Amount: 4 tablets HYDROcodone 2-0 2021- No 1{tbl} Q6H Take 1 [facility] -acetaminop 6-21 06-[address] [facility] ([employer]) 00:00: 00:00 [facility] 5-325 mg 00 :00 every 6 l per tablet (six) hours as needed for moderate pain or severe pain for up to 2 days .acute pain. Max Daily Amount: 4 tablets HYDROcodone 2-0 2021- No 1{tbl} Q6H Take 1 [facility] -acetaminop 6-21 06-[address] [facility] ([employer]) 00:00: 00:00 [facility]-325 mg 00 :00 every 6 l per tablet (six) hours as needed for moderate pain or severe pain for up to 2 days .acute pain. Max Daily Amount: 4 tablets HYDROcodone 2021-0 2021- No [id number] 1{tbl} Q6H Take 1 [facility] -acetaminop 6-21 06-[address] [facility] ([employer]) 00:00: 00:00 [facility]-325 mg 00 :00 every 6 l per tablet (six) hours as needed for moderate pain or severe pain for up to 2 days .acute pain. Max Daily Amount: 4 tablets HYDROcodone 2021-0 2021- No 1{tbl} Q6H Take 1 [facility] -acetaminop 6-21 06-[address] [facility] ([employer]) 00:00: 00:00 [facility] 5-325 mg 00 :00 every 6 l per tablet (six) hours as needed for moderate pain or severe pain for up to 2 days .acute pain. Max Daily Amount: 4 tablets HYDROcodone 2021-0 2021- No 1{tbl} Q6H Take 1 [facility] -acetaminop 6-21 06-[address] [facility] ([employer]) 00:00: 00:00 [facility]-325 mg 00 :00 every 6 l per tablet (six) hours as needed for moderate pain or severe pain for up to 2 days .acute pain. Max Daily Amount: 4 tablets HYDROcodone 2-0 2021- No [id number] 1{tbl} Q6H Take 1 [facility] -acetaminop 6-21 06-[address] [facility] ([employer]) 00:00: 00:00 [facility]-325 mg 00 :00 every 6 l per tablet (six) hours as needed for moderate pain or severe pain for up to 2 days .acute pain. Max Daily Amount: 4 tablets HYDROcodone 2-0 2021- No [id number] 1{tbl} Q6H Take 1 [facility] -acetaminop 6-21 06-[address] [facility] ([employer]) 00:00: 00:00 [facility]-325 mg 00 :00 every 6 l per tablet (six) hours as needed for moderate pain or severe pain for up to 2 days .acute pain. Max Daily Amount: 4 tablets HYDROcodone 2022-0 2022- No [id number] 1{tbl} Q6H Take 1 [facility] -acetaminop 6-21 06-[address] [facility] ([employer]) 00:00: 00:00 [facility]-325 mg 00 :00 every 6 l per tablet (six) hours as needed for moderate pain or severe pain for up to 2 days .acute pain. Max Daily Amount: 4 tablets HYDROcodone 2022-0 2- No [id number] 1{tbl} Q6H Take 1 [facility] -acetaminop 6-21 06-[address] [facility] ([employer]) 00:00: 00:00 [facility]-325 mg 00 :00 every 6 l per tablet (six) hours as needed for moderate pain or severe pain for up to 2 days .acute pain. Max Daily Amount: 4 tablets HYDROcodone 2022-0 2- No [id number] 1{tbl} Q6H Take 1 [facility] -acetaminop 6-21 06-[address] [facility] ([employer]) 00:00: 00:00 [facility]-325 mg 00 :00 every 6 l per tablet (six) hours as needed for moderate pain or severe pain for up to 2 days .acute pain. Max Daily Amount: 4 tablets HYDROcodone 2022-0 2021- No [id number] 1{tbl} Q6H Take 1 [facility] -acetaminop 6-21 06-[address] [facility] ([employer]) 00:00: 00:00 [facility]-325 mg 00 :00 every 6 l per tablet (six) hours as needed for moderate pain or severe pain for up to 2 days .acute pain. Max Daily Amount: 4 tablets HYDROcodone 2022-0 2022- No [id number] 1{tbl} Q6H Take 1 [facility] -acetaminop 6-21 06-[address] [facility] ([employer]) 00:00: 00:00 [facility]-325 mg 00 :00 every 6 l per tablet (six) hours as needed for moderate pain or severe pain for up to 2 days .acute pain. Max Daily Amount: 4 tablets HYDROcodone 2-0 2021- No [id number] 1{tbl} Q6H Take 1 [facility] -acetaminop 6-21 06-[address] [facility] ([employer]) 00:00: 00:00 [facility]-325 mg 00 :00 every 6 l per tablet (six) hours as needed for moderate pain or severe pain for up to 2 days .acute pain. Max Daily Amount: 4 tablets HYDROcodone 2021-0 2021- No [id number] 1{tbl} Q6H Take 1 [facility] -acetaminop 6-21 06-[address] [facility] ([employer]) 00:00: 00:00 [facility]-325 mg 00 :00 every 6 l per tablet (six) hours as needed for moderate pain or severe pain for up to 2 days .acute pain. Max Daily Amount: 4 tablets HYDROcodone 2021-0 2021- No [id number] 1{tbl} Q6H Take 1 [facility] -acetaminop 6-21 06-[address] [facility] ([employer]) 00:00: 00:00 [facility]-325 mg 00 :00 every 6 l per tablet (six) hours as needed for moderate pain or severe pain for up to 2 days .acute pain. Max Daily Amount: 4 tablets HYDROcodone 2021-0 2021- 1{tbl} Q6H Take 1 [facility] -acetaminop 6-21 06-[address] [facility] ([employer]) 00:00: 00:00 [facility] 5-325 mg 00 :00 every 6 l per tablet (six) hours as needed for moderate pain or severe pain for up to 2 days .acute pain. Max Daily Amount: 4 tablets HYDROcodone 2-0 2021- No [id number] 1{tbl} Q6H Take 1 [facility] -acetaminop 6-21 06-[address] [facility] ([employer]) 00:00: 00:00 [facility] 5-325 mg 00 :00 every 6 l per tablet (six) hours as needed for moderate pain or severe pain for up to 2 days .acute pain. Max Daily Amount: 4 tablets HYDROcodone 2022-0 2022- No [id number] 1{tbl} Q6H Take 1 [facility] -acetaminop 6-21 06-[address] [facility] ([employer]) 00:00: 00:00 [facility] 5-325 mg 00 :00 every 6 l per tablet (six) hours as needed for moderate pain or severe pain for up to 2 days .acute pain. Max Daily Amount: 4 tablets HYDROcodone 2021-0 1{tbl} Q6H Take 1 [facility] -acetaminop 6-21 06-[address] [facility] ([employer]) 00:00: 00:00 [facility] 5-325 mg 00 :00 every 6 l per tablet (six) hours as needed for moderate pain or severe pain for up to 2 days .acute pain. Max Daily Amount: 4 tablets HYDROcodone 2021-0 1{tbl} Q6H Take 1 [facility] -acetaminop 6-21 06-[address] [facility] ([employer]) 00:00: 00:00 [facility] 5-325 mg 00 :00 every 6 l per tablet (six) hours as needed for moderate pain or severe pain for up to 2 days .acute pain. Max Daily Amount: 4 tablets HYDROcodone 2021- 1{tbl} Q6H Take 1 [facility] -acetaminop 6-21 06-[address] [facility] ([employer]) 00:00: 00:00 [facility] 5-325 mg 00 :00 every 6 l per tablet (six) hours as needed for moderate pain or severe pain for up to 2 days .acute pain. Max Daily Amount: 4 tablets HYDROcodone 2021-0 1{tbl} Q6H Take 1 [facility] -acetaminop 6-21 06-[address] [facility] ([employer]) 00:00: 00:00 [facility] 5-325 mg 00 :00 every 6 l per tablet (six) hours as needed for moderate pain or severe pain for up to 2 days .acute pain. Max Daily Amount: 4 tablets HYDROcodone 2021-0 1{tbl} Q6H Take 1 [facility] -acetaminop 6-21 06-[address] [facility] ([employer]) 00:00: 00:00 [facility] 5-325 mg 00 :00 every 6 l per tablet (six) hours as needed for moderate pain or severe pain for up to 2 days .acute pain. Max Daily Amount: 4 tablets HYDROcodone 2021-0 2021- No [id number] 1{tbl} Q6H Take 1 [facility] -acetaminop 6-21 [...] 2022- No 5mg QD Take 1 [facility] (NORVASC) 5 -05 20- tablet (5 st [...] MOUTH l TWICE DAILY WITH MEALS naproxen 2022-0 Yes TAKE 1 [facility] (NAPROSYN) 5-22 TABLET(500 [...] DAILY WITH MEALS meclizine 2021- No 25mg Q.41797770 Take 1 [facility] (ANTIVERT) 517 06-10 [id number] tablet (25 st 25 mg 00:00: 00:00 3D mg total) [facility] 00 :00 by mouth 3 l (three) times a day as needed for dizziness for up to 30 days. meclizine 2021-0 2021- No 25mg Q.18669167 Take 1 [facility] (ANTIVERT) 17 -10 [id number] tablet (25 st 25 mg 00:00: 00:00 3D mg total) [facility] tablet 00 :00 by mouth 3 l (three) times a day as needed for dizziness for up to 30 days. meclizine 2021-0 2021- No 25mg Q.69935504 Take 1 [facility] (ANTIVERT) 517 -10 [id number] tablet (25 st 25 mg 00:00: 00:00 3D mg total) [facility] tablet 00 :00 by mouth 3 l (three) times a day as needed for dizziness for up to 30 days. meclizine 2021- No 25mg Q.80203260 Take 1 [facility] ([facility]ERT) 17 -10 [id number] tablet (25 st 25 mg 00:00: 00:00 3D mg total) [facility] tablet 00 :00 by mouth 3 l (three) times a day as needed for dizziness for up to 30 days. meclizine 2021- No 25mg Q.98722342 Take 1 [facility] ([facility]) 17 -10 [id number] tablet (25 st 25 mg 00:00: 00:00 3D mg total) [facility] tablet 00 :00 by mouth 3 l (three) times a day as needed for dizziness for up to 30 days. meclizine 2021-0 202- No 25mg Q.92103911 Take 1 [facility] ([facility]ERT) 517 -10 [id number] tablet (25 st 25 mg 00:00: 00:00 3D mg total) [facility] tablet 00 :00 by mouth 3 l (three) times a day as needed for dizziness for up to 30 days. meclizine 2021-0 2021- No 25mg Q.24409021 Take 1 [facility] ([facility]) 517 06-10 [id number] tablet (25 st 25 mg 00:00: 00:00 3D mg total) [facility] tablet 00 :00 by mouth 3 l (three) times a day as needed for dizziness for up to 30 days. meclizine 2021-0 2021- No 25mg Q.54145206 Take 1 [facility] ([facility]) 517 -10 [id number] tablet (25 st 25 mg 00:00: 00:00 3D mg total) [facility] tablet 00 :00 by mouth 3 l (three) times a day as needed for dizziness for up to 30 days. meclizine 2021-0 2021- No 25mg Q.82996872 Take 1 [facility] ([facility]) 517 -10 [id number] tablet (25 st 25 mg 00:00: 00:00 3D mg total) [facility] tablet 00 :00 by mouth 3 l (three) times a day as needed for dizziness for up to 30 days. meclizine 2021-0 2021- No 25mg Q.61992532 Take 1 [facility] ([facility]ERT) 517 -10 [id number] tablet (25 st 25 mg 00:00: 00:00 [...] l times a day. acetaminoph 2021- [place] [id number] 1{tbl} Q6H Take 1-2 [facility] en-codeine 4-27 [...] 5 days .acute pain. acetaminoph 2021- [place] [id number] 1{tbl} Q6H Take 1-2 [facility] en-codeine 4 05-[address] (TYLENOL 00:00: 04:59 [facility] WITH 00 :00 every 6 l CODEINE #3) (six) 300-30 mg hours as per tablet needed for moderate pain for up to 5 days .acute pain. amoxicillin 2021- No [id number] 500mg Q.5D Take 1 [facility] (AMOXIL) 07-[address] 500 MG 00:00: 04:59 (500 mg [facility]osp[facility] tablet 00 :00 total) by l mouth 2 (two) times a day for 7 days. amoxicillin 2021- No [id number] 500mg Q.5D Take 1 [facility] (AMOXIL) 07-[address] 500 MG 00:00: 04:59 (500 mg [facility]osp[facility] tablet 00 :00 total) by l mouth 2 (two) times a day for 7 days. amoxicillin 2021- No [id number] 500mg Q.5D Take 1 [facility] (AMOXIL) 07-[address] 500 MG 00:00: 04:59 (500 mg [facility] tablet 00 :00 total) by l mouth 2 (two) times a day for 7 days. amoxicillin 2021- No [id number] 500mg Q.5D Take 1 [facility] ([facility]OXIL) 07-[address] 500 MG 00:00: 04:59 (500 mg [facility]osp[facility] tablet 00 :00 total) by l mouth 2 (two) times a day for 7 days. amoxicillin 2021- No [id number] 500mg Q.5D Take 1 [facility] (AMOXIL) 07-[address] 500 MG 00:00: 04:59 (500 mg [facility] tablet 00 :00 total) by l mouth 2 (two) times a day for 7 days. amoxicillin 2021- No [id number] 500mg Q.5D Take 1 [facility] (AMOXIL) 07-[address] 500 MG 00:00: 04:59 (500 mg [facility] tablet 00 :00 total) by l mouth 2 (two) times a day for 7 days. amoxicillin 2021- No [id number] 500mg Q.5D Take 1 [facility] (AMOXIL) 07-24-[address] 500 MG 00:00: 04:59 (500 mg [facility] tablet 00 :00 total) by l mouth 2 (two) times a day for 7 days. amoxicillin 2021- No [id number] 500mg Q.5D Take 1 [facility] (AMOXIL) 07-24 [...] :00 by mouth l daily. naproxen 2021-0 2022- No 500mg Q.5D Take [...] hours for 30 days. amoxicillin 2021-2021- No [id number] 500mg Q.5D Take 1 [facility] (AMOXIL) 06-18-[address] 500 MG 00:00: 04:59 (500 mg [facility]osp[facility] tablet 00 :00 total) by l mouth in the morning and 1 tablet (500 mg total) before bedtime. Do all this for 7 days. amoxicillin No [id number] 500mg Q.5D Take 1 [facility] (AMOXIL) 06-[address] 500 MG 00:00: 04:59 (500 mg [facility] tablet 00 :00 total) by l mouth in the morning and 1 tablet (500 mg total) before bedtime. Do all this for 7 days. amoxicillin No [id number] 500mg Q.5D Take 1 [facility] ([facility]OXIL) 06-[address] 500 MG 00:00: 04:59 (500 mg [facility]osp[facility] tablet 00 :00 total) by l mouth in the morning and 1 tablet (500 mg total) before bedtime. Do all this for 7 days. amoxicillin No [id number] 500mg Q.5D Take 1 [facility] ([facility]OXIL) 06-[address] 500 MG 00:00: 04:59 (500 mg [facility] tablet 00 :00 total) by l mouth in the morning and 1 tablet (500 mg total) before bedtime. Do all this for 7 days. amoxicillin No [id number] 500mg Q.5D Take 1 [facility] ([facility]OXIL) 06-[address] 500 MG 00:00: 04:59 (500 mg [facility]osp[facility] tablet 00 :00 total) by l mouth in the morning and 1 tablet (500 mg total) before bedtime. Do all this for 7 days. amoxicillin No [id number] 500mg Q.5D Take 1 [facility] ([facility]IL) 06-[address] 500 MG 00:00: 04:59 (500 mg [facility] tablet 00 :00 total) by l mouth in the morning and 1 tablet (500 mg total) before bedtime. Do all this for 7 days. amoxicillin No [id number] 500mg Q.5D Take 1 [facility] (AMOXIL) 06-[address] 500 MG 00:00: 04:59 (500 mg [facility]osp[facility] tablet 00 :00 total) by l mouth in the morning and 1 tablet (500 mg total) before bedtime. Do all this for 7 days. amoxicillin 2021-2021- No [id number] 500mg Q.5D Take 1 [facility] (AMOXIL) 06-18 [...] 00 :00 l HYDROcodone 2021-0 2021- No [id number] 1{tbl} Q6H Take 1 [facility] -acetaminop 05-[address] [facility] ([facility]) 00:00: 05:59 [facility] 5-325 mg 00 :00 every 6 l per tablet (six) hours as needed for moderate pain for up to 5 days .acute pain. Max Daily Amount: 4 tablets HYDROcodone 2022-0 2022- [place] [id number] 1{tbl} Q6H Take 1 [facility] -acetaminop 05-[address] [facility] ([facility]) 00:00: 05:59 [facility] 5-325 mg 00 :00 every 6 l per tablet (six) hours as needed for moderate pain for up to 5 days .acute pain. Max Daily Amount: 4 tablets HYDROcodone 2-0 2021- No [id number] 1{tbl} Q6H Take 1 [facility] -acetaminop 05-[address] [facility] ([place]) 00:00: 05:59 [facility] 5-325 mg 00 :00 every 6 l per tablet (six) hours as needed for moderate pain for up to 5 days .acute pain. Max Daily Amount: 4 tablets HYDROcodone 2021-0 2021- No [id number] 1{tbl} Q6H Take 1 [facility] -acetaminop 05-[address] [facility] ([place]) 00:00: 05:59 [facility] 5-325 mg 00 :00 every 6 l per tablet (six) hours as needed for moderate pain for up to 5 days .acute pain. Max Daily Amount: 4 tablets HYDROcodone 2021-0 2021- No [id number] 1{tbl} Q6H Take 1 [facility] -acetaminop 05-[address] [facility] ([place]) 00:00: 05:59 [facility] 5-325 mg 00 :00 every 6 l per tablet (six) hours as needed for moderate pain for up to 5 days .acute pain. Max Daily Amount: 4 tablets HYDROcodone 2021-0 2021- No [id number] 1{tbl} Q6H Take 1 [facility] -acetaminop 05-[address] [facility] ([place]) 00:00: 05:59 [facility] 5-325 mg 00 :00 every 6 l per tablet (six) hours as needed for moderate pain for up to 5 days .acute pain. Max Daily Amount: 4 tablets acetaminoph 2021-0 2021- [place] [id number] 1{tbl} Q6H Take 1-2 [facility] en-codeine 05-04 [...] for up to 30 doses. ibuprofen 2022-0 2021- No 600mg Q6H Take 1 Meth [...] to 5 days .[place]. [place] [id number] 1{tbl} Q6H Take 1 [facility] en-codeine 04-[address] (TYLENOL 00:00: 05:59 [facility] WITH 00 :00 every 6 l CODEINE #3) (six) 300-30 mg hours as per tablet needed for severe pain for up to 5 days .[place]. [place] [id number] 1{tbl} Q6H Take 1 [facility] en-codeine 04-12 [...] up to 5 days .acute pain. traMADoL [id number] 50mg Q6H Take 1 [facility] (ULTRAM) 50 04-12 tablet (50 s t mg tablet 00:00: 00:00 mg total) [facility] 00 :00 by mouth l every 6 (six) hours as needed for moderate pain for up to 5 days .acute pain. traMADoL 28 50mg Q6H Take 1 [facility] (ULTRAM) 50 1-01 01-01 tablet (50 s t mg tablet 00:00: 00:00 mg total) [facility] 00 :00 by mouth l every 6 (six) hours as needed for moderate pain for up to 5 days .acute pain. amLODIPine 2020-04 No 2.5mg QD Take 1 [facility] ([facility]) 04-[address] 2.5 mg 00:00: 00:00 (2.5 mg [facility]ospita tablet 00 :00 total) by l mouth daily. amLODIPine 2020-04 No 2.5mg QD Take 1 [facility] ([employer]) 04-[address] 2.5 mg 00:00: 00:00 (2.5 mg [facility]osp[facility] tablet 00 :00 total) by l mouth daily. amLODIPine 2020-04 No 2.5mg QD Take 1 [facility] ([employer]) 04-[address] 2.5 mg 00:00: 00:00 (2.5 mg [facility]osp[facility] tablet 00 :00 total) by l mouth daily. amLODIPine 2020-04 No 2.5mg QD Take 1 [facility] ([employer]) 04-[address] 2.5 mg 00:00: 00:00 (2.5 mg [facility]ospita tablet 00 :00 total) by l mouth daily. amLODIPine 2020-04 No 2.5mg QD Take 1 [facility] ([employer]) 04-[address] 2.5 mg 00:00: 00:00 [...] H [facility] (ATARAX) 10 0-26 tablet by [facility] lth mg tablet 00:00: mouth 3 00 times daily as needed for Itching or Anxiety. hydrOXYzine 2020-1 Yes Anxiety 10mg Take 1 [facility] (ATARAX) 10 0-26 tablet by [facility] mg tablet 00:00: mouth 3 00 times daily as needed for Itching or Anxiety. baclofen 2020-0 Yes Neck pain 10mg Take 1 [facility] (LIORESAL) 9-24 tablet by [facility] 10 mg 00:00: mouth 2 tablet 00 times daily as needed (muscle spasms) STOP cyclobenza kasia (FLEXERIL) 10 mg tablet. baclofen 2020-0 Yes Neck pain 10mg Take 1 [facility] (LIORESAL) 9-24 tablet by [facility] 10 mg 00:00: mouth 2 tablet 00 times daily as needed (muscle spasms) STOP cyclobenza kasia (FLEXERIL) 10 mg tablet. baclofen 2020-0 Yes Neck pain 10mg Take 1 [facility] (LIORESAL) 9-24 tablet by [facility] 10 mg 00:00: mouth 2 tablet 00 times daily as needed (muscle spasms) STOP cyclobenza kasia (FLEXERIL) 10 mg tablet. baclofen 2020-0 Yes Neck pain 10mg Take 1 [facility] (LIORESAL) 9-24 tablet by [facility] 10 mg 00:00: mouth 2 tablet 00 times daily as needed (muscle spasms) STOP cyclobenza kasia (FLEXERIL) 10 mg tablet. baclofen 2020-0 Yes Neck pain 10mg Take 1 [facility] (LIORESAL) 9-24 tablet by [facility] 10 mg 00:00: mouth 2 tablet 00 times daily as needed (muscle spasms) STOP cyclobenza kasia (FLEXERIL) 10 mg tablet. baclofen 2020-0 Yes Neck pain 10mg Take 1 [facility] (LIORESAL) 9-24 tablet by [facility] 10 mg 00:00: mouth 2 tablet 00 times daily as needed (muscle spasms) STOP cyclobenza kasia (FLEXERIL) 10 mg tablet. baclofen 2020-0 Yes Neck pain 10mg Take 1 [facility] (LIORESAL) 9-24 tablet by [facility] 10 mg 00:00: mouth 2 tablet 00 times daily as needed (muscle spasms) STOP cyclobenza kasia (FLEXERIL) 10 mg tablet. baclofen 2020-0 Yes Neck pain 10mg Take 1 [facility] (LIORESAL) 9-24 tablet by [facility] 10 mg 00:00: mouth 2 tablet 00 times daily as needed (muscle spasms) STOP cyclobenza kasia (FLEXERIL) 10 mg tablet. baclofen 2020-0 Yes Neck pain 10mg Take 1 [facility] (LIORESAL) 9-24 tablet by [facility] 10 mg 00:00: mouth 2 tablet 00 times daily as needed (muscle spasms) STOP cyclobenza kasia (FLEXERIL) 10 mg tablet. baclofen 2020-0 Yes Neck pain 10mg Take 1 [facility] (LIORESAL) 9-24 tablet by [facility] 10 mg 00:00: mouth 2 tablet 00 times daily as needed (muscle spasms) STOP cyclobenza kasia (FLEXERIL) 10 mg tablet. baclofen 2020-0 Yes Neck pain 10mg Take 1 [facility] (LIORESAL) 9-24 tablet by [facility] 10 mg 00:00: mouth 2 tablet 00 times daily as needed (muscle spasms) STOP cyclobenza kasia (FLEXERIL) 10 mg tablet. baclofen 2020-0 Yes Neck pain 10mg Take 1 [facility] (LIORESAL) 9-24 tablet by [facility] 10 mg 00:00: mouth 2 tablet 00 times daily as needed (muscle spasms) STOP cyclobenza kasia (FLEXERIL) 10 mg tablet. baclofen 2020-0 Yes Neck pain 10mg Take 1 [facility] (LIORESAL) 9-24 tablet by [facility] 10 mg 00:00: mouth 2 tablet 00 times daily as needed (muscle spasms) STOP cyclobenza kasia (FLEXERIL) 10 mg tablet. baclofen 2020-0 Yes Neck pain 10mg Take 1 [facility] (LIORESAL) 9-24 tablet by [facility] 10 mg 00:00: mouth 2 tablet 00 times daily as needed (muscle spasms) STOP cyclobenza kasia (FLEXERIL) 10 mg tablet. baclofen 2020-0 Yes Neck pain 10mg Take 1 [facility] (LIORESAL) 9-24 tablet by [facility] 10 mg 00:00: mouth 2 tablet 00 times daily as needed (muscle spasms) STOP cyclobenza kasia (FLEXERIL) 10 mg tablet. baclofen 2020-0 Yes Neck pain 10mg Take 1 Maria rris (LIORESAL) 9-24 tablet by [facility] 10 mg 00:00: mouth 2 tablet [...] 1 Maria rris azole-trime 9-24 tablet by [facility] thoprim 08:09: mouth 2 (BACTRIM 11 times DS) 800-160 daily. mg per tablet MULTIVITAMI 2019-0 Yes Take by Tom ris N (DAILY 9-24 mouth. Health VITAMIN OR) 08:09: 11 sulfamethox 2019-0 Yes 1{tbl} Q.5D Take 1 Maria rris azole-trime 9-24 tablet by [facility] thoprim 08:09: mouth 2 (BACTRIM 11 times DS) 800-160 daily. mg per tablet MULTIVITAMI 2019-0 Yes Take by Tom ris N (DAILY 9-24 mouth. Health VITAMIN OR) 08:09: 11 sulfamethox 2019-0 Yes 1{tbl} Q.5D Take 1 Maria rris azole-trime 9-24 tablet by [facility] thoprim 08:09: mouth 2 (BACTRIM 11 times DS) 800-160 daily. mg per tablet MULTIVITAMI 2019-0 Yes Take by Tom ris N (DAILY 9-24 mouth. Health VITAMIN OR) 08:09: 11 sulfamethox 2019-0 Yes 1{tbl} Q.5D Take 1 Maria rris azole-trime 9-24 tablet by [facility] thoprim 08:09: mouth 2 (BACTRIM 11 times DS) 800-160 daily. mg per tablet MULTIVITAMI 2019-0 Yes Take by Tom ris N (DAILY 9-24 mouth. Health VITAMIN OR) 08:09: 11 sulfamethox 2019-0 Yes 1{tbl} Q.5D Take 1 Maria rris azole-trime 9-24 tablet by [facility] thoprim 08:09: mouth 2 (BACTRIM 11 times DS) 800-160 daily. mg per tablet MULTIVITAMI 2019-0 Yes Take by Tom ris N (DAILY 9-24 mouth. Health VITAMIN OR) 08:09: 11 sulfamethox 2019-0 Yes 1{tbl} Q.5D Take 1 Maria rris azole-trime 9-24 tablet by [facility] thoprim 08:09: mouth 2 (BACTRIM 11 times DS) 800-160 daily. mg per tablet MULTIVITAMI 2019-0 Yes Take by Tom ris N (DAILY 9-24 mouth. Health VITAMIN OR) 08:09: 11 sulfamethox 2019-0 Yes 1{tbl} Q.5D Take 1 Maria rris azole-trime 9-24 tablet by [facility] thoprim 08:09: mouth 2 (BACTRIM 11 times DS) 800-160 daily. mg per tablet MULTIVITAMI 2019-0 Yes Take by Tom ris N (DAILY 9-24 mouth. Health VITAMIN OR) 08:09: 11 sulfamethox 2019-0 Yes 1{tbl} Q.5D Take 1 Maria rris azole-trime 9-24 tablet by [facility] 08:09: mouth 2 (BACTRIM 11 times DS) [...] hours as needed for Pain. Immunizations Ordered Filled Immunization Date Status Comments [facility] Immunization Name Name FLUCELVAX QUAD 2021-02-17 Completed Methodi [...] st 00:00:00 [facility] PFIZER COVID-19 2020-08-05 Completed [facility] MRNA VACCINATION 00:00:00 [facility] PFIZER COVID-19 2020-08-05 Completed [facility] MRNA VACCINATION 00:00:00 [facility] PFIZER COVID-19 2020-08-05 Completed [facility] MRNA VACCINATION 00:00:00 [facility] PFIZER COVID-19 2020-08-05 Completed [facility] MRNA VACCINATION 00:00:00 [facility] PFIZER COVID-19 2020-08-05 Completed [facility] MRNA VACCINATION 00:00:00 [facility] PFIZER COVID-19 2020-08-05 Completed [facility] MRNA VACCINATION 00:00:00 [facility] PFIZER COVID-19 2020-08-05 Completed [facility] MRNA VACCINATION 00:00:00 [facility] PFIZER COVID-19 2020-08-05 Completed [facility] MRNA VACCINATION 00:00:00 [facility] PFIZER COVID-19 2020-08-05 Completed [facility] MRNA VACCINATION 00:00:00 [facility] PFIZER COVID-19 2020-08-05 Completed [facility] MRNA VACCINATION 00:00:00 [facility] PFIZER COVID-19 2020-08-05 Completed [facility] MRNA VACCINATION 00:00:00 [facility] PFIZER COVID-19 2020-08-05 Completed [facility] MRNA VACCINATION 00:00:00 [facility] KELLY COVID-19 2020-08-05 Completed [facility] MRNA VACCINATION 00:00:00 [facility] KELLY COVID-19 2020-08-05 Completed [facility] MRNA VACCINATION 00:00:00 [facility] KELLY RIOSID-Nadja 2020-07-08 Completed [facility] MRNA VACCINATION 00:00:00 [facility] KELLY RIOSID-Nadja 2020-07-08 Completed [facility] MRNA VACCINATION 00:00:00 [facility] KELLY COVID-Nadja 2020-07-08 Completed [facility] MRNA VACCINATION 00:00:00 [facility] KELLY RIOSID-Nadja 2020-07-08 Completed [facility] MRNA VACCINATION 00:00:00 [facility] KELLY COVID-Nadja 2020-07-08 Completed [facility] MRNA VACCINATION 00:00:00 [facility] KELLY GONZALES-Nadja 2020-07-08 Completed [facility] MRNA VACCINATION 00:00:00 [facility] KELLY GONZALES-Nadja 2020-07-08 Completed [facility] MRNA VACCINATION 00:00:00 [facility] KELLY GONZALES-Nadja 2020-07-08 Completed [facility] MRNA VACCINATION 00:00:00 [facility] KELLY RIOSID-Nadja 2020-07-08 Completed [facility] MRNA VACCINATION 00:00:00 [facility] KELLY RIOSID-Nadja 2020-07-08 Completed [facility] MRNA VACCINATION 00:00:00 [facility] KELLY COVID-Nadja 2020-07-08 Completed [facility] MRNA VACCINATION 00:00:00 [facility] KELLY COVID-Nadja 2020-07-08 Completed [facility] MRNA VACCINATION 00:00:00 [facility] KELLY COVID-Nadja 2020-07-08 Completed [facility] MRNA VACCINATION 00:00:00 [facility] KELLY COVID-Nadja 2020-07-08 Completed [facility] MRNA VACCINATION 00:00:00 [facility] Influenza, 2020-03-12 Completed [facility] Vaccine<FLUCELVAX>( 00:00:00 Multi-Dose) Tdap (Tetanus 2020-03-12 Completed [facility] th Toxoid, Reduced 00:00:00 Diphtheria Toxoid And Acellular Pertussis, Absorbed) Influenza, 2020-03-12 Completed [facility] Vaccine<FLUCELVAX>( 00:00:00 Multi-Dose) Tdap (Tetanus 2020-03-12 Completed [facility] th Toxoid, Reduced 00:00:00 Diphtheria Toxoid And Acellular Pertussis, Absorbed) Influenza, 2020-03-12 Completed [facility] Vaccine<FLUCELVAX>( 00:00:00 Multi-Dose) Tdap (Tetanus 2020-03-12 Completed [facility] Toxoid, Reduced 00:00:00 Diphtheria Toxoid And Acellular Pertussis, Absorbed) Influenza, 2020-03-12 Completed [facility] Vaccine<FLUCELVAX>( 00:00:00 Multi-Dose) Tdap (Tetanus 2020-03-12 Completed [facility] Toxoid, Reduced 00:00:00 Diphtheria Toxoid And Acellular Pertussis, Absorbed) Influenza, 2020-03-12 Completed [facility] Vaccine<FLUCELVAX>( 00:00:00 Multi-Dose) Tdap (Tetanus 2020-03-12 Completed [facility] Toxoid, Reduced 00:00:00 Diphtheria Toxoid And Acellular Pertussis, Absorbed) Influenza, 2020-03-12 Completed [facility] Vaccine<FLUCELVAX>( 00:00:00 Multi-Dose) Tdap (Tetanus 2020-03-12 Completed [facility] Toxoid, Reduced 00:00:00 Diphtheria Toxoid And Acellular Pertussis, Absorbed) Influenza, 2020-03-12 Completed [facility] Vaccine<FLUCELVAX>( 00:00:00 Multi-Dose) Tdap (Tetanus 2020-03-12 Completed [facility] Toxoid, Reduced 00:00:00 Diphtheria Toxoid And Acellular Pertussis, Absorbed) Influenza, 2020-03-12 Completed [facility] Vaccine<FLUCELVAX>( 00:00:00 Multi-Dose) Tdap (Tetanus 2020-03-12 Completed [facility] Toxoid, Reduced 00:00:00 Diphtheria Toxoid And Acellular Pertussis, Absorbed) Influenza, 2020-03-12 Completed [facility] Vaccine<FLUCELVAX>( 00:00:00 Multi-Dose) Tdap (Tetanus 2020-03-12 Completed [facility] Toxoid, Reduced 00:00:00 Diphtheria Toxoid And Acellular Pertussis, Absorbed) Influenza, 2020-03-12 Completed [facility] Vaccine<FLUCELVAX>( 00:00:00 Multi-Dose) Tdap (Tetanus 2020-03-12 Completed [facility] Toxoid, Reduced 00:00:00 Diphtheria Toxoid And Acellular Pertussis, Absorbed) Influenza, 2020-03-12 Completed [facility] Vaccine<FLUCELVAX>( 00:00:00 Multi-Dose) Tdap (Tetanus 2020-03-12 Completed [facility] th Toxoid, Reduced 00:00:00 Diphtheria Toxoid And Acellular Pertussis, Absorbed) Influenza, 2020-03-12 Completed [facility] Vaccine<FLUCELVAX>( 00:00:00 Multi-Dose) Tdap (Tetanus 2020-03-12 Completed [facility] th Toxoid, Reduced 00:00:00 Diphtheria Toxoid And Acellular Pertussis, Absorbed) Influenza, 2020-03-12 Completed [facility] Vaccine<FLUCELVAX>( 00:00:00 Multi-Dose) Tdap (Tetanus 2020-03-12 Completed [facility] th Toxoid, Reduced 00:00:00 Diphtheria Toxoid And Acellular Pertussis, Absorbed) Influenza, 2020-03-12 Completed [facility] Vaccine<FLUCELVAX>( 00:00:00 Multi-Dose) Tdap (Tetanus 2020-03-12 Completed [facility] th Toxoid, Reduced 00:00:00 Diphtheria Toxoid And Acellular Pertussis, Absorbed) FLUCELVAX QUAD PF Unknown Completed [place] [id number] Unknown Completed [place] [id number] Unknown Completed [facility] Influenza, Unknown Completed [facility] Vaccine<FLUCELVAX>( Multi-Dose) Tdap (Tetanus Unknown Completed [facility] Toxoid, Reduced Diphtheria Toxoid And Acellular Pertussis, Absorbed) FLUCELVAX QUAD PF Unknown Completed [place] [id number] Unknown Completed [place] [id number] Unknown Completed [facility] Influenza, Unknown Completed [facility] Vaccine<FLUCELVAX>( Multi-Dose) Tdap (Tetanus Unknown Completed [facility] Toxoid, Reduced Diphtheria Toxoid And Acellular Pertussis, Absorbed) Vital Signs Vital Name Observation Time Observation Value Comments Source Systolic blood 2022-02-20 01:13:29 129 mm[Hg] Method ist [facility] pressure Diastolic blood 2022-02-20 01:13:29 67 mm[Hg] [facility] pressure Heart rate 2022-02-20 01:13:29 60 /min [facility] Respiratory rate 2022-02-20 01:13:29 18 /min [facility] Oxygen saturation in 2022-02-20 01:13:29 96 /min [facility] Arterial blood by Pulse oximetry Body height 2022-02-19 20:30:[address] [facility] Body weight 2022-02-19 20:30:[address] [facility] BMI 2022-02-19 20:30:00 30.04 kg/m2 [facility] Body temperature 2022-02-19 20:29:09 36.61 Nydia Meth [facility] pulse rate 2021-12-16 13:21:49 87 /min [facility] blood pressure, 2021-12-16 13:21:49 67 mm[Hg] [facility] diastolic Health blood pressure, 2021-12-16 13:21:49 132 mm[Hg] Legac [facility] systolic Health pulse rate 2020-11-25 14:31:56 70 /min [facility] blood pressure, 2020-11-25 14:31:56 74 mm[Hg] [facility] diastolic Health blood pressure, 2020-11-25 14:31:56 113 mm[Hg] [facility] systolic Health pulse rate 2020-11-25 13:39:38 70 /min [facility] blood pressure, 2020-11-25 13:39:38 74 mm[Hg] [facility] diastolic Health blood pressure, 2020-11-25 13:39:38 113 mm[Hg] [facility] systolic Health Procedures Procedure Date / Time Performing Source Performed Clinician CT CHEST WO CONTRAST ABDOMEN WO 2022-02-20 Cristóbal Ovalle CONTRAST PELVIS WO CONTRAST 01:47:08 [facility] ECG ED PRELIMINARY INTERPRETATION 2022-02-20 Cristóbal Ovalle 01:34:30 [facility] CBC WITH PLATELET AND DIFFERENTIAL 2022-02-19 Pa Manning id [facility] 21:40:00 [facility] COMPREHENSIVE METABOLIC PANEL 2022-02-19 Alee Manning In [facility] 21:40:00 Hospital HCG QUALITATIVE, SERUM SCREEN 2022-02-19 Alee Manning In [facility]ist 21:40:00 [facility] ESTIMATED GFR 2022-02-19 Alee Manning 21:40:00 Hospital ECG 12-LEAD 2022-02-19 Alee Manning 20:46:22 Hospital URINE CULTURE 2022-02-19 Alee Manning 20:34:00 [facility] URINALYSIS SCREEN AND MICROSCOPY, 2022-02-19 Eulalio Manning WITH REFLEX TO CULTURE 20:34:00 [facility] HEPATITIS B SURFACE ANTIGEN 2022-02-05 Eddie Farris Meth odist 15:30:00 [facility] HEPATITIS C ANTIBODY 2022-02-05 Eddie Farris 15:30:00 [facility] HIV 1/2 ANTIGEN/ANTIBODY, FOURTH 2022-02-05 Eddie Farris GENERATION, WITH REFLEXES 15:30:00 Hospit al HSV TYPE 1/2 COMBINED AB, IGM 2022-02-05 Eddie Farris In [facility]odist 15:30:00 Hospital RPR WITH REFLEX TO TITER 2022-02-[address] 15:30:00 [facility] HEPATITIS C VIRUS (HCV), 2022-02-[address] QUANTITATIVE PCR 15:30:00 [facility] HIV 1/2 ANTIGEN/ANTIBODY, FOURTH 2022-02-05 Eddie Farris GENERATION, WITH REFLEXES 15:30:00 Hospit al ZZHSV 1 AND 2 SPECIFIC AB IGG 2022-02-05 Eddie Farris In [facility] 15:30:00 [facility] SURGICAL PATHOLOGY REQUEST 2021-12-26 Esthela Small In [facility]odist 18:06:00 [facility] COLONOSCOPY 2021-12-26 Esthela Smallist 15:44:00 [facility] ESOPHAGOGASTRODUODENOSCOPY (EGD) 2021-12-26 Esthela Small [facility] 15:44:00 [facility] COVID-19 QUALITATIVE RT-PCR 2021-12-24 Esthela Small ethodist 12:41:00 [facility] THINPREP TIS AND HPV MRNA E6/E7 2021-12-18 Eddie Farris 18:34:00 [facility] ECG 12-LEAD 2021-11-28 Keith Carroll 15:26:34 [facility] TROPONIN T 2021-11-07 Zeyad Cohen 20:01:00 [facility] COVID-19 QUALITATIVE RT-PCR 2021-11-07 Zeyad Cohen odniki 19:09:00 [facility] COVID-19 OMICRON VARIANT 2021-11-[address] QUALITATIVE RT-PCR 19:09:00 [facility] XR CHEST 2 VW 2021-11-07 Zeyad Cohen 18:51:38 [facility] ECG ED PRELIMINARY INTERPRETATION 2021-11-07 Karo Cohen 18:50:27 [facility] COMPREHENSIVE METABOLIC PANEL 2021-11-07 Zeyad Cohen In [facility]ist 18:03:00 [facility] TROPONIN T 2021-11-07 Zeyad Cohen 18:03:00 [facility] CBC WITH PLATELET AND DIFFERENTIAL 2021-11-07 Ed Cohen [facility] 18:03:00 [facility] HCG QUALITATIVE, SERUM SCREEN 2021-11-07 Zeyad Cohen In thodist 18:03:00 [facility] ESTIMATED GFR 2021-11-07 Zeyad Cohen 18:03:00 [facility] ECG 12-LEAD 2021-11-07 Oghogho, Eyitemi [facility] 17:57:16 [facility] FL UGI W OR WO KUB 2021-11-03 Esthela Small [facility] 15:16:30 [facility] HEPATITIS C VIRUS (HCV), 2021-11-03 Esthela Small odniki QUANTITATIVE PCR 13:52:00 [facility] HEPATIC FUNCTION PANEL 2021-11-03 Esthela Small Method ist 13:52:00 [facility] XR CHEST 2 VW 2021-10-15 José Rider [facility] 02:52:42 [facility] COMPREHENSIVE METABOLIC PANEL 2021-10-15 Mario Maher thodist 01:15:00 [facility] TROPONIN T 2021-10-15 Mario Maherist 01:15:00 [facility] B NATRIURETIC PEPTIDE 2021-10-15 Mario Maherist 01:15:00 [facility] CBC WITH PLATELET AND DIFFERENTIAL 2021-10-15 Marques Maher [facility] 01:15:00 [facility] PROTHROMBIN TIME WITH INR 2021-10-15 Mario Maher Method ist 01:15:00 [facility] PARTIAL THROMBOPLASTIN TIME (PTT) 2021-10-15 Mario Maher 01:15:00 [facility] ESTIMATED GFR 2021-10-15 Mario Maher 01:15:00 [facility] ECG 12-LEAD 2021-10-15 Mario Maher 00:33:[address] [facility] [address] ANGIOGRAM PE CHEST 2021-10-12 Trung [...] Hospital URINE CULTURE 2021-10-12 Rajinder Ordoñez 15:17:00 [facility] URINALYSIS SCREEN AND MICROSCOPY, 2021-10-12 Arslan Ordoñez WITH REFLEX TO CULTURE 15:17:00 [facility] HCG QUALITATIVE, URINE SCREEN 2021-10-12 Rajinder Ordoñez 15:17:00 [facility] ECG 12-LEAD 2021-10-12 Rajinder Ordoñez 14:48:50 [facility] IN AN ELECTIVE SUPRAGLOTTIC AIRWAY 2021-09-30 Ruddy Marie 12:10:00 Hospital DECOMPRESSION, ULNAR NERVE 2021-09-30 Rebecca Brownlee 12:06:00 [facility] COVID-19 QUALITATIVE RT-PCR 2021-09-26 Dulce Maria Pierre 14:23:00 [facility] PROTHROMBIN TIME WITH INR 2021-09-26 Antonio Pierre 14:23:00 [facility] PARTIAL THROMBOPLASTIN TIME (PTT) 2021-09-26 Keith Pierre 14:23:00 [facility] COMPREHENSIVE METABOLIC PANEL 2021-09-26 Me Gabby thodist 14:23:00 [facility] ESTIMATED GFR 2021-09-26 Rebecca Brownlee 14:23:00 [facility] HEMOGLOBIN A1C 2021-09-26 Rebecca Brownlee 14:23:00 [facility] CBC WITH PLATELET AND DIFFERENTIAL 2021-09-19 Lexie Esparza 07:10:00 Hospital THYROID STIMULATING HORMONE 2021-09-19 Peggy Esparza Meth odist 07:10:00 Hospital CBC WITH PLATELET AND DIFFERENTIAL 2021-09-19 Lexie Esparza 07:10:00 Hospital XR ELBOW 3+ VW LEFT 2021-09-10 Rebecca Brownlee 15:28:[address] [facility] [address] ANGIOGRAM NECK W WO CONTRAST 2021-08-27 Brenda Retana 00:01:04 [facility] CT ANGIOGRAM HEAD W WO CONTRAST 2021-08-27 Brneda Retana 00:00:50 [facility] CT HEAD WO CONTRAST 2021-08-26 Brenda Retana 23:42:36 [facility] ECG ED PRELIMINARY INTERPRETATION 2021-08-26 Brenda Retana 23:22:45 [facility] CBC WITH PLATELET AND DIFFERENTIAL 2021-08-26 Willie Retana 21:57:00 [facility] COMPREHENSIVE METABOLIC PANEL 2021-08-26 Brenda Retana thodist 21:57:00 [facility] TROPONIN T 2021-08-26 Brenda Retana 21:57:00 [facility] B NATRIURETIC PEPTIDE 2021-08-26 Brenda Retana 21:57:00 [facility] HCG QUALITATIVE, SERUM SCREEN 2021-08-26 Brenda Retana Me thodist 21:57:00 [facility] ESTIMATED GFR 2021-08-26 Brenda Retana 21:57:00 [facility] ECG 12-LEAD 2021-08-26 Brenda Retana 21:42:16 [facility] URINE CULTURE 2021-08-06 Myles Martin 22:27:00 Hospital URINALYSIS SCREEN AND MICROSCOPY, 2021-08-06 Myles Martin Si [facility] WITH REFLEX TO CULTURE 22:27:00 Hospital XR CHEST 2 VW 2021-08-06 Myles Martin [facility] 20:36:00 Hospital INFLUENZA ANTIGEN 2021-08-06 Susie Melton [facility] 20:10:00 [facility] RESPIRATORY PATHOGEN PANEL WITH 2021-08-06 Susie Melton COVID-19 RT-PCR 20:10:00 [facility] ECG ED PRELIMINARY INTERPRETATION 2021-08-06 Myles Martin Si [facility] 20:08:02 [facility] COMPREHENSIVE METABOLIC PANEL 2021-08-06 Susie Melton Me thodist 20:05:00 [facility] CBC WITH PLATELET AND DIFFERENTIAL 2021-08-06 Montserrat Melton [facility] 20:05:00 [facility] TROPONIN T 2021-08-06 Susie Melton [facility] 20:05:00 [facility] LIPASE LEVEL 2021-08-06 Susie Melton [facility] 20:05:00 [facility] ESTIMATED GFR 2021-08-06 Susie Melton [facility] 20:05:00 [facility] ECG 12-LEAD 2021-08-06 Susie Melton [facility] 19:55:29 [facility] TROPONIN T 2021-08-01 Brenda Retana [facility] 03:32:00 [facility] ECG ED PRELIMINARY INTERPRETATION 2021-08-01 Nelson Villagran i [facility] 02:37:45 [facility] CBC WITH PLATELET AND DIFFERENTIAL 2021-08-01 Willie Retana [facility] 00:35:00 [facility] COMPREHENSIVE METABOLIC PANEL 2021-08-01 Brenda Retana thodist 00:35:00 [facility] TROPONIN T 2021-08-01 Brenda Retana [facility] 00:35:00 [facility] B NATRIURETIC PEPTIDE 2021-08-01 Brenda Retana [facility] 00:35:00 [facility] ESTIMATED GFR 2021-08-01 Brenda Retana [facility] 00:35:00 [facility] ECG 12-LEAD 2021-08-01 Brenda Retana [facility] 00:23:19 [facility] TROPONIN T 2021-07-30 Jaida Sales 21:35:00 Hospital ECG ED PRELIMINARY INTERPRETATION 2021-07-30 Myles Maritn Si 19:53:48 Hospital XR CHEST 2 VW 2021-07-30 Myles Martinist 19:37:56 [facility] COMPREHENSIVE METABOLIC PANEL 2021-07-30 Jaida Sales 18:40:00 Hospital CBC WITH PLATELET AND DIFFERENTIAL 2021-07-30 Jaida Sales 18:40:00 Hospital TROPONIN T 2021-07-30 Jaida Sales 18:40:00 Hospital B NATRIURETIC PEPTIDE 2021-07-[address] 18:40:00 Hospital ESTIMATED GFR 2021-07-30 Jaida Sales 18:40:00 Hospital ECG 12-LEAD 2021-07-30 Jaida Sales 18:33:57 Hospital MAMMO BREAST SCREEN TOMOSYNTHESIS 2021-07-28 Shell Vargasist BILATERAL 14:20:00 [facility] ECG ED PRELIMINARY INTERPRETATION 2021-07-01 Nelson Villagran Aram Parker 00:04:28 Hospital TROPONIN T 2021-06-30 Mario Maher 23:09:00 [facility] RESPIRATORY PATHOGEN PANEL WITH 2021-06-30 Mario Maher COVID-19 RT-PCR 21:09:00 [facility] XR CHEST 2 VW 2021-06-30 Mario Maher 20:40:51 [facility] COMPREHENSIVE METABOLIC PANEL 2021-06-30 Mario Maher Me thodist 20:06:00 [facility] TROPONIN T 2021-06-30 Mario Maher 20:06:00 [facility] B NATRIURETIC PEPTIDE 2021-06-30 Mario Maher 20:06:00 [facility] CBC WITH PLATELET AND DIFFERENTIAL 2021-06-30 Marques Maher 20:06:00 [facility] ESTIMATED GFR 2021-06-30 Mario Maher 20:06:00 [facility] ECG 12-LEAD 2021-06-30 Mario Maher 19:54:19 [facility] POC URINALYSIS DIPSTICK 2021-06-16 Eddie Farris t 18:20:00 Hospital THINPREP TIS PAP AND HPV MRNA 2021-06-16 Eddie Farris In thodist E6/E7 REFLEX HPV 16,18/45 18:17:00 Hospit al URINALYSIS, COMPLETE, WITH REFLEX 2021-06-16 Eddie Farris [facility] TO CULTURE 17:55:00 Hospital XR SHOULDER 2+ VW RIGHT 2021-06-02 Roger Ling t 17:52:26 [facility] MRI LUMBAR SPINE WO CONTRAST 2021-05-09 Shell Vargas Met hodist 18:44:08 [facility] MRI CERVICAL SPINE WO [facility] 14:11[facility]49 [facility] CT LUMBAR SPINE WO CONTRAST 2021-05-04 Liborio Herrera Met hodist 22:36:[address] THORACIC SPINE WO CONTRAST 2021-05-04 Liborio Herrera ethodist 22:35:58 Hospital TROPONIN T 2021-04-13 Shine Lui 01:33:00 Hospital XR CHEST 2 VW 2021-04-12 Shine Luiist 23:31:00 Hospital COMPREHENSIVE METABOLIC PANEL 2021-04-12 Shine Lui In thodist 22:56:00 Hospital LIPASE LEVEL 2021-04-12 Shine [...] malignant neoplasm of cervix (procedure) [code = 194721687] Future Scheduled 2024-09-11 [facility] 00:[facility]:00 malignant neoplasm of cervix (procedure) [code = [id number]] Future Scheduled 2024-09-11 [facility] 00:00:00 malignant neoplasm of cervix (procedure) [code = 697872269] Future Scheduled 2024-09-11 [facility] 00:00:00 malignant neoplasm of cervix (procedure) [code = 865823423] Future Scheduled 2024-09-11 [facility] 00:00:00 malignant neoplasm of cervix (procedure) [code = 252281914] Future Scheduled 2024-09-11 [facility] 00:00:00 malignant neoplasm of cervix (procedure) [code = 051955995] Future Scheduled 2024-09-11 [facility] 00:00:00 malignant neoplasm of cervix (procedure) [code = 873669398] Future Scheduled 2024-09-11 [facility] 00:00:00 malignant neoplasm of cervix (procedure) [code = 372145750] Future Scheduled 2024-09-11 [facility] 00:00:00 malignant neoplasm of cervix (procedure) [code = 874936897] Future Scheduled 2024-09-11 [facility] 00:00:00 malignant neoplasm of cervix (procedure) [code = 431092055] Future Scheduled 2024-09-11 [facility] 00:00:00 malignant neoplasm of cervix (procedure) [code = 272379167] Future Scheduled 2024-09-11 [facility] 00:00:00 malignant neoplasm of cervix (procedure) [code = 321299696] Future Scheduled 2024-09-11 [facility] 00:00:00 malignant neoplasm of cervix (procedure) [code = 144238825] Future Scheduled 2024-09-11 [facility] 00:00:00 malignant neoplasm of cervix (procedure) [code = 563458794] Future Scheduled 2024-09-11 [facility] 00:00:00 malignant neoplasm of cervix (procedure) [code = 327999498] Future Scheduled 2024-09-11 [facility] 00:00:00 malignant neoplasm of cervix (procedure) [code = 960888000] Future Scheduled 2024-09-11 [facility] 00:00:00 malignant neoplasm of cervix (procedure) [code = 540470612] Future Scheduled 2024-09-11 [facility] 00:00:00 malignant neoplasm of cervix (procedure) [code = 513801931] Future Scheduled 2024-09-11 [facility] 00:00:00 malignant neoplasm of cervix (procedure) [code = 388079768] Future Scheduled 2024-09-11 Screening for [facility] 00:00:00 malignant neoplasm of cervix (procedure) [code = [id number]] Future Scheduled 2024-09-11 Screening for [facility] 00:00:00 malignant neoplasm of cervix (procedure) [code = 993240564] Future Scheduled 2024-09-11 Screening for [facility] 00:00:00 malignant neoplasm of cervix (procedure) [code = [id number]] Future Scheduled 2024-09-11 Screening for [facility] 00:00:00 malignant neoplasm of cervix (procedure) [code = [id number]] Future Scheduled 2024-09-11 Screening [facility] 00:00:00 malignant neoplasm of cervix (procedure) [code = 281820315] Future Scheduled 2024-09-11 Screening for [facility] 00:00:00 malignant neoplasm of cervix (procedure) [code = [id number]] Future Scheduled 2024-09-11 Screening [facility] 00:00:00 malignant neoplasm of cervix (procedure) [code = 755992854] Future Scheduled 2024-09-11 Screening for [facility] 00:00:00 malignant neoplasm of cervix (procedure) [code = 725888355] Future Scheduled 2024-09-11 Screening for [facility] 00:00:00 malignant neoplasm of cervix (procedure) [code = 631385077] Future Scheduled 2024-09-11 Screening for [facility] 00:00:00 malignant neoplasm of cervix (procedure) [code = 439989326] Future Scheduled 2024-09-11 Screening [facility] 00:00:00 malignant neoplasm of cervix (procedure) [code = 315674000] Future Scheduled 2024-09-11 Screening for [facility] 00:00:00 malignant neoplasm of cervix (procedure) [code = 495299218] Future Scheduled 2024-09-11 Screening [facility] 00:00:00 malignant neoplasm of cervix (procedure) [code = 867347648] Future Scheduled 2023-01-20 HEPATITIS B VACCINES Met [facility] Test 14:04:46 (1 of 3 - 3-dose series) [code = HEPATITIS B VACCINES (1 of 3 - 3-dose series)] Future Scheduled 2023-01-20 Pneumococcal Vaccine: [facility] Test 14:04:46 Pediatrics (0 to 5 Years) and At-Risk Patients (6 to 64 Years) (1 - PCV) [code = Pneumococcal Vaccine: Pediatrics (0 to 5 Years) and At-Risk Patients (6 to 64 Years) (1 - PCV)] Future Scheduled 2023-01-20 SHINGLES VACCINES (1 Met [facility] Test 14:04:46 of 2) [code = SHINGLES VACCINES (1 of 2)] Future Scheduled 2023-01-20 COVID-19 VACCINE (3 - [facility] Test 14:04:46 Pfizer series) [code = COVID-19 VACCINE (3 - Pfizer series)] Future Scheduled 2023-01-20 BREAST CANCER [facility] Test 14:04:46 SCREENING [code = BREAST CANCER SCREENING] Future Scheduled 2023-01-20 INFLUENZA VACCINE (#1) [facility] Test 14:04:46 [code = INFLUENZA VACCINE (#1)] Future Scheduled 2023-01-20 Screening for [facility] Test 14:04:46 malignant neoplasm of cervix (procedure) [code = [id number]] Future Scheduled 2023-01-10 IMM Influenza Seasonal H [...] Influenza Seasonal (>/= 19 yrs)] Future Scheduled 2022-12-14 HEPATITIS B VACCINES Met [facility] Test 14:02:36 (1 of 3 - 3-dose series) [code = HEPATITIS B VACCINES (1 of 3 - 3-dose series)] Future Scheduled 2022-12-14 Pneumococcal Vaccine: [facility] Test 14:02:36 Pediatrics (0 to 5 Years) and At-Risk Patients (6 to 64 Years) (1 - PCV) [code = Pneumococcal Vaccine: Pediatrics (0 to 5 Years) and At-Risk Patients (6 to 64 Years) (1 - PCV)] Future Scheduled 2022-12-14 SHINGLES VACCINES (1 Met [facility] Test 14:02:36 of 2) [code = SHINGLES VACCINES (1 of 2)] Future Scheduled 2022-12-14 COVID-19 VACCINE (3 - [facility] Test 14:02:36 Pfizer series) [code = COVID-19 VACCINE (3 - Pfizer series)] Future Scheduled 2022-12-14 BREAST CANCER [facility] Test 14:02:36 SCREENING [code = BREAST CANCER SCREENING] Future Scheduled 2022-12-14 INFLUENZA VACCINE (#1) M [facility] Test 14:02:36 [code = INFLUENZA VACCINE (#1)] Future Scheduled 2022-12-14 Screening for [facility] Test 14:02:36 malignant neoplasm of cervix (procedure) [code = [id number]] Future Scheduled 2022-12-14 HEPATITIS B VACCINES Met [facility] Test 14:02:36 (1 of 3 - 3-dose series) [code = HEPATITIS B VACCINES (1 of 3 - 3-dose series)] Future Scheduled 2022-12-14 Pneumococcal Vaccine: [facility] Test 14:02:36 Pediatrics (0 to 5 Years) and At-Risk Patients (6 to 64 Years) (1 - PCV) [code = Pneumococcal Vaccine: Pediatrics (0 to 5 Years) and At-Risk Patients (6 to 64 Years) (1 - PCV)] Future Scheduled 2022-12-14 SHINGLES VACCINES (1 Met [facility] Test 14:02:36 of 2) [code = SHINGLES VACCINES (1 of 2)] Future Scheduled 2022-12-14 COVID-19 VACCINE (3 - [facility] Test 14:02:36 Pfizer series) [code = COVID-19 VACCINE (3 - Pfizer series)] Future Scheduled 2022-12-14 BREAST CANCER [facility] Test 14:02:36 SCREENING [code = BREAST CANCER SCREENING] Future Scheduled 2022-12-14 INFLUENZA VACCINE (#1) [facility] Test 14:02:36 [code = INFLUENZA VACCINE (#1)] Future Scheduled 2022-12-14 Screening for [facility] Test 14:02:36 malignant neoplasm of cervix (procedure) [code = [id number]] Future Scheduled 2022-12-11 IMM Influenza Seasonal H [facility] Test 00:00:00 (>/= 19 yrs) [code = IMM Influenza Seasonal (>/= 19 yrs)] Future Scheduled 2022-12-11 [facility]MM [facility] 00:00:00 (>/= 19 yrs) [code = IMM Influenza Seasonal (>/= 19 yrs)] Future Scheduled 2022-11-23 HEPATITIS B VACCINES Met [facility] Test 15:50:17 (1 of 3 - 3-dose series) [code = HEPATITIS B VACCINES (1 of 3 - 3-dose series)] Future Scheduled 2022-11-23 Pneumococcal Vaccine: [facility] Test 15:50:17 Pediatrics (0 to 5 Years) and At-Risk Patients (6 to 64 Years) (1 - PCV) [code = Pneumococcal Vaccine: Pediatrics (0 to 5 Years) and At-Risk Patients (6 to 64 Years) (1 - PCV)] Future Scheduled 2022-11-23 SHINGLES VACCINES (1 Met [facility] Test 15:50:17 of 2) [code = SHINGLES VACCINES (1 of 2)] Future Scheduled 2022-11-23 COVID-19 VACCINE (3 - [facility] Test 15:50:17 Pfizer series) [code = COVID-19 VACCINE (3 - Pfizer series)] Future Scheduled 2022-11-23 BREAST CANCER [facility] Test 15:50:17 SCREENING [code = BREAST CANCER SCREENING] Future Scheduled 2022-11-23 ZZZ INFLUENZA VACCINE [facility] Test 15:50:17 [code = ZZZ INFLUENZA VACCINE] Future Scheduled 2022-11-23 Screening for [facility] Test 15:50:17 malignant neoplasm of cervix (procedure) [code = [id number]] Future Scheduled 2022-11-16 HEPATITIS B VACCINES Met [facility] Test 15:11:20 (1 of 3 - 3-dose series) [code = HEPATITIS B VACCINES (1 of 3 - 3-dose series)] Future Scheduled 2022-11-16 Pneumococcal Vaccine: [facility] Test 15:11:20 Pediatrics (0 to 5 Years) and At-Risk Patients (6 to 64 Years) (1 - PCV) [code = Pneumococcal Vaccine: Pediatrics (0 to 5 Years) and At-Risk Patients (6 to 64 Years) (1 - PCV)] Future Scheduled 2022-11-16 SHINGLES VACCINES (1 Met [facility] Test 15:11:20 of 2) [code = SHINGLES VACCINES (1 of 2)] Future Scheduled 2022-11-16 COVID-19 VACCINE (3 - [facility] Test 15:11:20 Pfizer series) [code = COVID-19 VACCINE (3 - Pfizer series)] Future Scheduled 2022-11-16 BREAST CANCER [facility] Test 15:11:20 SCREENING [code = BREAST CANCER SCREENING] Future Scheduled 2022-11-16 INFLUENZA VACCINE Method [facility] Test 15:11:20 [code = INFLUENZA VACCINE] Future Scheduled 2022-11-16 Screening for [facility] Test 15:11:20 malignant neoplasm of cervix (procedure) [code = [id number]] Future Scheduled 2022-10-02 HEPATITIS B VACCINES Met [facility] Test 12:32:01 (1 of 3 - 3-dose series) [code = HEPATITIS B VACCINES (1 of 3 - 3-dose series)] Future Scheduled 2022-10-02 Pneumococcal Vaccine: [facility] Test 12:32:01 Pediatrics (0 to 5 Years) and At-Risk Patients (6 to 64 Years) (1 - PCV) [code = Pneumococcal Vaccine: Pediatrics (0 to 5 Years) and At-Risk Patients (6 to 64 Years) (1 - PCV)] Future Scheduled 2022-10-02 SHINGLES VACCINES (1 Met [facility] Test 12:32:01 of 2) [code = SHINGLES VACCINES (1 of 2)] Future Scheduled 2022-10-02 COVID-19 VACCINE (3 - [facility] Test 12:32:01 Pfizer series) [code = COVID-19 VACCINE (3 - Pfizer series)] Future Scheduled 2022-10-02 BREAST CANCER [facility] Test 12:32:01 SCREENING [code = BREAST CANCER SCREENING] Future Scheduled 2022-10-02 INFLUENZA VACCINE Method [facility] Test 12:32:01 [code = INFLUENZA VACCINE] Future Scheduled 2022-10-02 Screening for [facility] Test 12:32:01 malignant neoplasm of cervix (procedure) [code = [id number]] Future Scheduled 2022-09-11 HEPATITIS B VACCINES Met [facility] Test 08:52:14 (1 of 3 - 3-dose series) [code = HEPATITIS B VACCINES (1 of 3 - 3-dose series)] Future Scheduled 2022-09-11 Pneumococcal Vaccine: [facility] Test 08:52:14 Pediatrics (0 to 5 Years) and At-Risk Patients (6 to 64 Years) (1 - PCV) [code = Pneumococcal Vaccine: Pediatrics (0 to 5 Years) and At-Risk Patients (6 to 64 Years) (1 - PCV)] Future Scheduled 2022-09-11 COLONOSCOPY SCREENING [facility] Test 08:52:14 [code = COLONOSCOPY SCREENING] Future Scheduled 2022-09-11 SHINGLES VACCINES (1 Met [facility] Test 08:52:14 of 2) [code = SHINGLES VACCINES (1 of 2)] Future Scheduled 2022-09-11 COVID-19 VACCINE (3 - [facility] Test 08:52:14 Booster for Pfizer series) [code = COVID-19 VACCINE (3 - Booster for Pfizer series)] Future Scheduled 2022-09-11 BREAST CANCER [facility] Test 08:52:14 SCREENING [code = BREAST CANCER SCREENING] Future Scheduled 2022-09-11 INFLUENZA VACCINE Method [facility] Test 08:52:14 [code = INFLUENZA VACCINE] Future Scheduled 2022-09-11 Screening for [facility] Test 08:52:14 malignant neoplasm of cervix (procedure) [code = 991186872] Future Scheduled 2022-08-06 HEPATITIS B VACCINES Met [facility] Test 21:07:15 (1 of 3 - 3-dose series) [code = HEPATITIS B VACCINES (1 of 3 - 3-dose series)] Future Scheduled 2022-08-06 Pneumococcal Vaccine: [facility] Test 21:07:15 Pediatrics (0 to 5 Years) and At-Risk Patients (6 to 64 Years) (1 - PCV) [code = Pneumococcal Vaccine: Pediatrics (0 to 5 Years) and At-Risk Patients (6 to 64 Years) (1 - PCV)] Future Scheduled 2022-08-06 COLONOSCOPY SCREENING [facility] Test 21:07:15 [code = COLONOSCOPY SCREENING] Future Scheduled 2022-08-06 SHINGLES VACCINES (1 Met [facility] Test 21:07:15 of 2) [code = SHINGLES VACCINES (1 of 2)] Future Scheduled 2022-08-06 COVID-19 VACCINE (3 - [facility] Test 21:07:15 Booster for Pfizer series) [code = COVID-19 VACCINE (3 - Booster for Pfizer series)] Future Scheduled 2022-08-06 BREAST CANCER [facility] Test 21:07:15 SCREENING [code = BREAST CANCER SCREENING] Future Scheduled 2022-08-06 INFLUENZA VACCINE Method [facility] Test 21:07:15 [code = INFLUENZA VACCINE] Future Scheduled 2022-08-06 Screening for [facility] Test 21:07:15 malignant neoplasm of cervix (procedure) [code = 140393147] Future Scheduled 2022-06-22 HEPATITIS B VACCINES Met [facility] Test 14:13:36 (1 of 3 - 3-dose series) [code = HEPATITIS B VACCINES (1 of 3 - 3-dose series)] Future Scheduled 2022-06-22 Pneumococcal Vaccine: [facility] Test 14:13:36 Pediatrics (0 to 5 Years) and At-Risk Patients (6 to 64 Years) (1 - PCV) [code = Pneumococcal Vaccine: Pediatrics (0 to 5 Years) and At-Risk Patients (6 to 64 Years) (1 - PCV)] Future Scheduled 2022-06-22 COLONOSCOPY SCREENING [facility] Test 14:13:36 [code = COLONOSCOPY SCREENING] Future Scheduled 2022-06-22 SHINGLES VACCINES (1 Met [facility] Test 14:13:36 of 2) [code = SHINGLES VACCINES (1 of 2)] Future Scheduled 2022-06-22 COVID-19 VACCINE (3 - [facility] Test 14:13:36 Booster for Pfizer series) [code = COVID-19 VACCINE (3 - Booster for Pfizer series)] Future Scheduled 2022-06-22 INFLUENZA VACCINE Method [facility] Test 14:13:36 [code = INFLUENZA VACCINE] Future Scheduled 2022-06-22 BREAST CANCER [facility] Test 14:13:36 SCREENING [code = BREAST CANCER SCREENING] Future Scheduled 2022-06-22 Screening for [facility] Test 14:13:36 malignant neoplasm of cervix (procedure) [code = 227295447] Future Scheduled 2022 HEPATITIS B VACCINES Met [facility] Test 13:45:15 (1 of 3 - 3-dose series) [code = HEPATITIS B VACCINES (1 of 3 - 3-dose series)] Future Scheduled 2022 Pneumococcal Vaccine: [facility] Test 13:45:15 Pediatrics (0 to 5 Years) and At-Risk Patients (6 to 64 Years) (1 - PCV) [code = Pneumococcal Vaccine: Pediatrics (0 to 5 Years) and At-Risk Patients (6 to 64 Years) (1 - PCV)] Future Scheduled 2022 COLONOSCOPY SCREENING [facility] Test 13:45:15 [code = COLONOSCOPY SCREENING] Future Scheduled 2022 SHINGLES VACCINES (1 Met [facility] Test 13:45:15 of 2) [code = SHINGLES VACCINES (1 of 2)] Future Scheduled 2022 COVID-19 VACCINE (3 - [facility] Test 13:45:15 Booster for Pfizer series) [code = COVID-19 VACCINE (3 - Booster for Pfizer series)] Future Scheduled 2022 [facility]15 [code = INFLUENZA VACCINE] Future Scheduled 2022 BREAST CANCER [facility] Test 13:45:15 SCREENING [code = BREAST CANCER SCREENING] Future Scheduled 2022 Screening for [facility] Test 13:45:15 malignant neoplasm of cervix (procedure) [code = 074713602] Future Scheduled 2022-04-17 HEPATITIS B VACCINES Met [facility] Test 10:21:02 (1 of 3 - 3-dose series) [code = HEPATITIS B VACCINES (1 of 3 - 3-dose series)] Future Scheduled 2022-04-17 Pneumococcal Vaccine: [facility] Test 10:21:02 Pediatrics (0 to 5 Years) and At-Risk Patients (6 to 64 Years) (1 - PCV) [code = Pneumococcal Vaccine: Pediatrics (0 to 5 Years) and At-Risk Patients (6 to 64 Years) (1 - PCV)] Future Scheduled 2022-04-17 COLONOSCOPY SCREENING [facility] Test 10:21:02 [code = COLONOSCOPY SCREENING] Future Scheduled 2022-04-17 SHINGLES VACCINES (1 Met [facility] Test 10:21:02 of 2) [code = SHINGLES VACCINES (1 of 2)] Future Scheduled 2022-04-17 COVID-19 VACCINE (3 - [facility] Test 10:21:02 Booster for Pfizer series) [code = COVID-19 VACCINE (3 - Booster for Pfizer series)] Future Scheduled 2022-04-17 INFLUENZA VACCINE Method [facility] Test 10:21:02 [code = INFLUENZA VACCINE] Future Scheduled 2022-04-17 BREAST CANCER [facility] Test 10:21:02 SCREENING [code = BREAST CANCER SCREENING] Future Scheduled 2022-04-17 Screening for [facility] Test 10:21:02 malignant neoplasm of cervix (procedure) [code = 966046700] Future Scheduled 2022-04-15 HEPATITIS B VACCINES Met [facility] Test 14:24:02 (1 of 3 - 3-dose series) [code = HEPATITIS B VACCINES (1 of 3 - 3-dose series)] Future Scheduled 2022-04-15 Pneumococcal Vaccine: [facility] Test 14:24:02 Pediatrics (0 to 5 Years) and At-Risk Patients (6 to 64 Years) (1 - PCV) [code = Pneumococcal Vaccine: Pediatrics (0 to 5 Years) and At-Risk Patients (6 to 64 Years) (1 - PCV)] Future Scheduled 2022-04-15 COLONOSCOPY SCREENING [facility] Test 14:24:02 [code = COLONOSCOPY SCREENING] Future Scheduled 2022-04-15 SHINGLES VACCINES (1 Met [facility] Test 14:24:02 of 2) [code = SHINGLES VACCINES (1 of 2)] Future Scheduled 2022-04-15 COVID-19 VACCINE (3 - [facility] Test 14:24:02 Booster for Pfizer series) [code = COVID-19 VACCINE (3 - Booster for Pfizer series)] Future Scheduled 2022-04-15 INFLUENZA VACCINE Method [facility] Test 14:24:02 [code = INFLUENZA VACCINE] Future Scheduled 2022-04-15 BREAST CANCER [facility] Test 14:24:02 SCREENING [code = BREAST CANCER SCREENING] Future Scheduled 2022-04-15 Screening for [facility] Test 14:24:02 malignant neoplasm of cervix (procedure) [code = 514541428] Future Scheduled 2022-04-03 HEPATITIS B VACCINES Met [facility] Test 09:31:00 (1 of 3 - 3-dose series) [code = HEPATITIS B VACCINES (1 of 3 - 3-dose series)] Future Scheduled 2022-04-03 Pneumococcal Vaccine: [facility] Test 09:31:00 Pediatrics (0 to 5 Years) and At-Risk Patients (6 to 64 Years) (1 - PCV) [code = Pneumococcal Vaccine: Pediatrics (0 to 5 Years) and At-Risk Patients (6 to 64 Years) (1 - PCV)] Future Scheduled 2022-04-03 COLONOSCOPY SCREENING [facility] Test 09:31:00 [code = COLONOSCOPY SCREENING] Future Scheduled 2022-04-03 SHINGLES VACCINES (1 Met [facility] Test 09:31:00 of 2) [code = SHINGLES VACCINES (1 of 2)] Future Scheduled 2022-04-03 COVID-19 VACCINE (3 - [facility] Test 09:31:00 Booster for Pfizer series) [code = COVID-19 VACCINE (3 - Booster for Pfizer series)] Future Scheduled 2022-04-03 INFLUENZA VACCINE Method [facility] Test 09:31:00 [code = INFLUENZA VACCINE] Future Scheduled 2022-04-03 BREAST CANCER [facility] Test 09:31:00 SCREENING [code = BREAST CANCER SCREENING] Future Scheduled 2022-04-03 Screening for [facility] Test 09:31:00 malignant neoplasm of cervix (procedure) [code = 966721781] Future Scheduled 2022-03-05 HEPATITIS B VACCINES Met [facility] Test 00:08:56 (1 of 3 - 3-dose series) [code = HEPATITIS B VACCINES (1 of 3 - 3-dose series)] Future Scheduled 2022-03-05 Pneumococcal Vaccine: [facility] Test 00:08:56 Pediatrics (0 to 5 Years) and At-Risk Patients (6 to 64 Years) (1 - PCV) [code = Pneumococcal Vaccine: Pediatrics (0 to 5 Years) and At-Risk Patients (6 to 64 Years) (1 - PCV)] Future Scheduled 2022-03-05 COLONOSCOPY SCREENING [facility] Test 00:08:56 [code = COLONOSCOPY SCREENING] Future Scheduled 2022-03-05 SHINGLES VACCINES (1 Met [facility] Test 00:08:56 of 2) [code = SHINGLES VACCINES (1 of 2)] Future Scheduled 2022-03-05 COVID-19 VACCINE (3 - [facility] Test 00:08:56 Booster for Pfizer series) [code = COVID-19 VACCINE (3 - Booster for Pfizer series)] Future Scheduled 2022-03-05 INFLUENZA VACCINE Method [facility] Test 00:08:56 [code = INFLUENZA VACCINE] Future Scheduled 2022-03-05 BREAST CANCER [facility] Test 00:08:56 SCREENING [code = BREAST CANCER SCREENING] Future Scheduled 2022-03-05 Screening for [facility] Test 00:08:56 malignant neoplasm of cervix (procedure) [code = 207353533] Future Scheduled 2022-03-05 HEPATITIS B VACCINES Met [facility] Test 00:08:56 (1 of 3 - 3-dose series) [code = HEPATITIS B VACCINES (1 of 3 - 3-dose series)] Future Scheduled 2022-03-05 Pneumococcal Vaccine: [facility] Test 00:08:56 Pediatrics (0 to 5 Years) and At-Risk Patients (6 to 64 Years) (1 - PCV) [code = Pneumococcal Vaccine: Pediatrics (0 to 5 Years) and At-Risk Patients (6 to 64 Years) (1 - PCV)] Future Scheduled 2022-03-05 COLONOSCOPY SCREENING [facility] Test 00:08:56 [code = COLONOSCOPY SCREENING] Future Scheduled 2022-03-05 SHINGLES VACCINES (1 Met [facility] Test 00:08:56 of 2) [code = SHINGLES VACCINES (1 of 2)] Future Scheduled 2022-03-05 COVID-19 VACCINE (3 - [facility] Test 00:08:56 Booster for Pfizer series) [code = COVID-19 VACCINE (3 - Booster for Pfizer series)] Future Scheduled 2022-03-05 INFLUENZA VACCINE Method [facility] Test 00:08:56 [code = INFLUENZA VACCINE] Future Scheduled 2022-03-05 BREAST CANCER [facility] Test 00:08:56 SCREENING [code = BREAST CANCER SCREENING] Future Scheduled 2022-03-05 Screening for [facility] Test 00:08:56 malignant neoplasm of cervix (procedure) [code = 620340862] Future Scheduled 2022-02-22 HEPATITIS B VACCINES Met [facility] Test 22:17:15 (1 of 3 - 3-dose series) [code = HEPATITIS B VACCINES (1 of 3 - 3-dose series)] Future Scheduled 2022-02-22 Pneumococcal Vaccine: [facility] Test 22:17:15 Pediatrics (0 to 5 Years) and At-Risk Patients (6 to 64 Years) (1 - PCV) [code = Pneumococcal Vaccine: Pediatrics (0 to 5 Years) and At-Risk Patients (6 to 64 Years) (1 - PCV)] Future Scheduled 2022-02-22 COLONOSCOPY SCREENING [facility] Test 22:17:15 [code = COLONOSCOPY SCREENING] Future Scheduled 2022-02-22 SHINGLES VACCINES (1 Met [facility] Test 22:17:15 of 2) [code = SHINGLES VACCINES (1 of 2)] Future Scheduled 2022-02-22 COVID-19 VACCINE (3 - [facility] Test 22:17:15 Booster for Pfizer series) [code = COVID-19 VACCINE (3 - Booster for Pfizer series)] Future Scheduled 2022-02-22 INFLUENZA VACCINE Method [facility] Test 22:17:15 [code = INFLUENZA VACCINE] Future Scheduled 2022-02-22 BREAST CANCER [facility] Test 22:17:15 SCREENING [code = BREAST CANCER SCREENING] Future Scheduled 2022-02-22 Screening for [facility] Test 22:17:15 malignant neoplasm of cervix (procedure) [code = 044504812] Future Scheduled 2022-01-10 IMM Influenza Seasonal H [...] malignant neoplasm of colon (procedure) [code = 886970806] Future Scheduled 2019 [facility]:00 malignant neoplasm of colon (procedure) [code = 011937719] Future Scheduled 2019 Screening for [facility] 00:00:00 malignant neoplasm of colon (procedure) [code = 324776591] Future Scheduled 2019 Screening for [facility] 00:00:00 malignant neoplasm of colon (procedure) [code = 374089115] Future Scheduled 2019 Screening for [facility] 00:00:00 malignant neoplasm of colon (procedure) [code = 021247721] Future Scheduled 2019 Screening for [facility] 00:00:00 malignant neoplasm of colon (procedure) [code = 415275987] Future Scheduled 2019 Screening for [facility] 00:00:00 malignant neoplasm of colon (procedure) [code = 298269405] Future Scheduled 2019 Screening for [facility] 00:00:00 malignant neoplasm of colon (procedure) [code = 672920127] Future Scheduled 2019 Screening for [facility] 00:00:00 malignant neoplasm of colon (procedure) [code = 810804098] Future Scheduled 2019 Screening for [facility] 00:00:00 malignant neoplasm of colon (procedure) [code = 269712483] Future Scheduled 2019 Screening for [facility] 00:00:00 malignant neoplasm of colon (procedure) [code = 917731931] Future Scheduled 2019 Screening for [facility] 00:00:00 malignant neoplasm of colon (procedure) [code = 057529218] Future Scheduled 2019 Screening for [facility] 00:00:00 malignant neoplasm of colon (procedure) [code = 280174123] Future Scheduled 2019 Screening for [facility] 00:00:00 malignant neoplasm of colon (procedure) [code = 239630714] Future Scheduled 2019 Screening for [facility] 00:00:00 malignant neoplasm of colon (procedure) [code = 010503264] Future Scheduled 2019 Screening for [facility] 00:00:00 malignant neoplasm of colon (procedure) [code = 186134662] Future Scheduled 1975 Imm Pneumococcal 0-64 Maria [...] Pneumococcal 0-64 (1 - PCV)] Future Scheduled 1974 COVID-19 Vaccine (#1) [facility] 00:00:00 [code = COVID-19 Vaccine (#1)] Future Scheduled 1974 COVID-19 Vaccine (#1) [facility] 00:00:00 [code = COVID-19 Vaccine (#1)] Future Scheduled 1974 COVID-19 Vaccine (#1) [facility] 00:00:00 [code = COVID-19 Vaccine (#1)] Future Scheduled 1972 Dental X-Ray: Mahmood Hea [...] Type Clinicians Facility Department ID 2022-11-16 Outpatient [facility] [id number] [facility] 05:03:14 [id number] [facility] 2022-04-23 Outpatient [facility] [id number] [place] 15:11:[id number] [place] [address] 2022-12-25 2022-12-25 Outpatient S[facility] S[facility] Vadim 16:12:57 16:12:57 [id number] [facility] [place] 2022-12-19 2022-12-19 Outpatient [facility]ad[facility] 10:18:19 10:18:19 [id number] [facility] [place] 2022-12-17 2022-12-17 Outpatient SFA SFA Vadim 10:01:16 10:01:16 65848 [facility] [place] 2022-11-17 2022-11-17 Outpatient SFA [facility]adim 09:30:40 09:30:40 [id number] F [place] 2022-11-06 2022-11-06 Outpatient [facility] 08:17:59 08:17:59 [id number] F [place] 2022-09-14 2022-09-14 Outpatient SFA [facility] 14:26:13 14:26:13 03736 F [place] 2022-09-10 2022-09-10 Orders Fabby, 1.2.840.1 [id number] 2027 Methodi 00:00:00 00:00:00 Only Juana 43575.1.[address] Kelley 3.430.2.7 Hospit a .3.703530 l .8 2022-09-10 2022-09-10 Telephone Jean, 1.2.840.1 [id number] 2099 [id number] Methodi 00:00:00 00:00:[address] 3.430.2.7 Hospit a .3.458964 l .8 2022-09-10 2022-09-10 Orders Fabby, 1.2.840.1 [id number] 122338 1335 Methodi 00:00:00 00:00:00 Only Juana 93167.1.[address] Kelley 3.430.2.7 Hospit a .3.171899 l .8 2022-09-10 2022-09-10 Telephone Jean, 1.2.840.1 [id number] 2099 166977 Methodi 00:00:00 00:00:[address] 3.430.2.7 Hospit a .3.927914 l .8 2022-05-15 2022-05-15 Outpatient KELLI ALDANA [id number] Kelli 00:00:00 00:00:00 SHINE ren 2022-02-19 2022-02-19 Emergency Vasquez, 1.2.840.1 [id number] 2099 [id number] Methodi 18:09:00 20:16:[address] Bennett 3.430.2.7 Hosp shai .3.260517 l .8 2022-02-19 2022-02-19 Emergency Vasquez, 1.2.840.1 [id number] 2099 911960 Methodi 18:09:00 20:16:00 Cristóbal [address]25[address]1.[address] Bennett 3.430.2.7 Hosp shai .3.265563 l .8 2022-02-12 2022-02-12 Orders Lopez, 1.2.840.1 [id number] 05376 Methodi 00:00:00 00:00:00 Only Maureen 37779.1.[address] 3.430.2.7 Hospit a .3.065720 l .8 2022-02-12 2022-02-12 Orders Lopez, 1.2.840.1 [id number] 21001 90331 Methodi 00:00:00 00:00:00 Only Maureen 50998.1.[address] 3.430.2.7 Hospit a .3.016241 l .8 2022-02-11 2022-02-11 Orders Lopez, 1.2.840.1 [id number] 21001 85649 Methodi 00:00:00 00:00:00 Only Maureen 52060.1.[address] 3.430.2.7 Hospit a .3.454029 l .8 2022-02-11 2022-02-11 Telephone Prasanth, 1.2.840.1 [id number] 2099 478990 Methodi 00:00:00 00:00:[address] Franco [address]79.1.[address] 3.430.2.7 Hospit a .3.639780 l .8 2022-02-11 2022-02-11 Orders Jessica, 1.2.840.1 678005143 21001 78098 Methodi 00:00:00 00:00:00 Only Maureen 49300.1.[address] 3.430.2.7 Hospit a .3.727634 l .8 2022-02-11 2022-02-11 Telephone Prasanth, 1.2.840.1 [id number] 2100 965826 Methodi 00:00:00 00:00:[address] Franco [address].1.[address] 3.430.2.7 Hospit a .3.759047 l .8 2022-02-09 2022-02-09 Outpatient [facility] PDPFCCG ETQ [facility]H 00:00:00 00:00:00 [id number] 2022-02-09 2022-02-09 Telephone Prasanth, 1.2.840.1 [id number] 2100 785241 Methodi 00:00:00 00:00:00 Eddie Franco [address]197.1.[address] 3.430.2.7 Hospit a .3.305414 l .8 2022-02-09 2022-02-09 Telephone Prasanth, 1.2.840.1 [id number] 2099 941594 Methodi 00:00:00 00:00:00 Eddie Franco 22897.1.[address] 3.430.2.7 Hospit a .3.458552 l .8 2022-02-05 2022-02-05 Lab Prasanth, 1.2.840.1 [id number] 571938 1900 Methodi 10:50:00 10:55:[address] Franco [address]27.1.[address] 3.430.2.7 Hospit a .3.164953 l .8 2022-02-05 2022-02-05 Lab Prasanth, 1.2.840.1 [id number] 179563 2713 Methodi 10:50:00 10:55:00 Eddie Franco 72398.1.[address] 3.430.2.7 Hospit a .3.752134 l .8 2022-02-05 2022-02-05 Office Prasanth, 1.2.840.1 [id number] 578898 1260 Methodi 09:40:00 10:31:06 Visit Eddie Franco 61147.1.[address] 3.430.2.7 Hospit a .3.859953 l .8 2022-02-05 2022-02-05 Office Prasanth, 1.2.840.1 [id number] 632555 9382 Methodi 09:40:00 10:31:06 Visit Eddie Franco 32079.1.[address] 3.430.2.7 Hospit a .3.262382 l .8 2022-02-05 2022-02-05 Refill Alicia, 1.2.840.1 [id number] 878829 3260 Methodi 00:00:00 00:00:[address] Doe 3.430.2.7 Hospi ta .3.681684 l .8 2022-02-05 2022-02-05 Travel 1.2.840.1 1.2.421.743 0992 058220 Methodi 00:00:00 00:00:[address] 3.430.2.7 0.2.7.3.698 Ho spita .3.487681 084.8 l .8 2022-02-05 2022-02-05 Refill Iscorwin, 1.2.840.1 [id number] 417274 4441 Methodi 00:00:00 00:00:[address] Doe 3.430.2.7 Hospi ta .3.383486 l .8 2022-02-05 2022-02-05 Travel 1.2.840.1 1.2.308.124 2200 857169 Methodi 00:00:00 00:00:[address] 3.430.2.7 0.2.7.3.698 Ho spita .3.470466 084.8 l .8 2022-02-03 2022-02-03 Telephone Prasanth, 1.2.840.1 [id number] 2099 353153 Methodi 00:00:00 00:00:00 Eddie Franco [address]45.1.[address] 3.430.2.7 Hospit a .3.261881 l .8 2022-02-03 2022-02-03 Telephone Prasanth, 1.2.840.1 [id number] 2099 015325 Methodi 00:00:00 00:00:[address]40.1.[address] 3.430.2.7 Hospit a .3.163043 l .8 2022-01-01 2022-01-01 Telephone Mccallum, 1.2.840.1 [id number] 2099 209500 Methodi 00:00:00 00:00:[address] 3.430.2.7 Hospit a .3.311527 l .8 2021-12-26 2021-12-26 Surgery Small, 1.2.840.1 005084652 253067 6864 Methodi 11:00:00 11:45:[address] Hasan 3.430.2.7 Hospit a .3.156316 l .8 2021-12-26 2021-12-26 Hospital Small, 1.2.840.1 [id number] 76368 88909 Methodi 10:21:00 11:28:00 Encounter Proctor 72586.1.[address] Hasan 3.430.2.7 Hospit a .3.505238 l .8 2021-12-26 2021-12-26 Anesthesia Hans Casper 1.2.840.1 [id number] Methodi 10:44:00 11:06:00 Event Osvaldosilvia 51797.1.[address] 3.430.2.7 Hospit a .3.361185 l .8 2021-12-26 2021-12-26 Travel 1.2.840.1 1.2.968.943 9261 900918 Methodi 00:00:00 00:00:[address] 3.430.2.7 0.2.7.3.698 Ho spita .3.991120 084.8 l .8 2021-12-24 2021-12-24 Lab Staci, 1.2.840.1 [id number] 735612 6316 Methodi 08:00:00 08:15:[address] Hasan 3.430.2.7 Hospit a .3.370915 l .8 2021-12-24 2021-12-24 Orders Marc, 1.2.840.1 [id number] 429100 4966 Methodi 00:00:00 00:00:00 Only Kortney 96028.1.[address] 3.430.2.7 Hospit a .3.623630 l .8 2021-12-18 2021-12-18 Jacquelyn Farris, 1.2.840.1 [id number] 524949 1968 Methodi 11:00:00 13:02:01 Visit Eddie Franco 73123.1.[address] 3.430.2.7 Hospit a .3.980867 l .8 2021-12-18 2021-12-18 Travel 1.2.840.1 1.2.840.679 5675 232830 Methodi 00:00:00 00:00:[address] 3.430.2.7 0.2.7.3.698 Ho spita .3.689450 084.8 l .8 2021-12-16 2021-12-16 Office Doug Estevez [facility] Encounter/ Legacy 00:00:00 00:00:00 Visit Bijan Carson [id number] [facility] 740151 [facility] 2021-12-09 2021-12-09 Refill Oleksandr, 1.2.840.1 [id number] 2099 135190 Methodi 00:00:00 00:00:[address] 3.430.2.7 Hospit a .3.651285 l .8 2021-11-28 2021-11-28 Office Carly, 1.2.840.1 965356743 375 7667319 Methodi 10:15:00 10:52:48 [place] [address]3890.1.[address] 3.430.2.7 Hospit a .3.924782 l .8 2021-11-28 2021-11-28 Travel 1.2.840.1 1.2.143.726 4909 351072 Methodi 00:00:00 00:00:[address] 3.430.2.7 0.2.7.3.698 Ho spita .3.644672 084.8 l .8 2021-11-17 2021-11-17 Office Fabby, 1.2.840.1 [id number] 145589 9879 Methodi 09:00:00 09:30:00 Visit Juana 33287.1.[address] Kelley 3.430.2.7 Hospit a .3.534935 l .8 2021-11-17 2021-11-17 Travel 1.2.840.1 1.2.688.152 5271 609372 Methodi 00:00:00 00:00:[address] 3.430.2.7 0.2.7.3.698 Ho spita .3.556420 084.8 l .8 2021-11-14 2021-11-14 Orders Istre, 1.2.840.1 [id number] 390021 4568 Methodi 00:00:00 00:00:00 Only Shell 61120.1.[address] [place] 3.430.2.7 Hospi ta .3.310558 l .8 2021-11-11 2021-11-11 Telemedici Istre, 1.2.840.1 075264074 999 3417903 Methodi 10:00:00 10:40:34 ne Shell 05300.1.[address] [place] 3.430.2.7 Hospi ta .3.102378 l .8 2021-11-07 2021-11-07 Emergency Noel, 1.2.840.1 [id number] 2099 940128 Methodi 14:04:00 15:46:[address] Kirsten 3.430.2.7 Hospit a .3.627396 l .8 2021-11-07 2021-11-07 Travel 1.2.840.1 1.2.552.358 0270 720586 Methodi 00:00:00 00:00:[address] 3.430.2.7 0.2.7.3.698 Ho spita .3.066750 084.8 l .8 2021-11-03 2021-11-03 Lab Small, 1.2.840.1 [id number] 181678 6944 Methodi 08:25:00 08:30:[address] Hasan 3.430.2.7 Hospit a .3.603843 l .8 2021-11-03 2021-11-03 Outpatient STACI, [facility] [id number] 623 [place] 00:00:00 00:00:00 PROCTOR [address] 2021-11-03 2021-11-03 Telephone Alessio, 1.2.840.1 [id number] 2099 732271 Methodi 00:00:00 00:00:[address] 3.430.2.7 Hospit a .3.284609 l .8 2021-11-03 2021-11-03 Travel 1.2.840.1 1.2.160.927 0489 443600 Methodi 00:00:00 00:00:[address] 3.430.2.7 0.2.7.3.698 Ho spita .3.410194 084.8 l .8 2021-10-29 2021-10-29 Documentat Judd, 1.2.840.1 [id number] 2 [id number] Methodi 00:00:00 00:00:00 ion Amanda 90051.1.[address] 3.430.2.7 Hospit a .3.615246 l .8 2021-10-29 2021-10-29 Prep for Judd, 1.2.840.1 397892925 209 8024216 Methodi 00:00:00 00:00:00 Surgery Amanda 91182.1.[address] 3.430.2.7 Hospit a .3.133558 l .8 2021-10-29 2021-10-29 Telephone Binta, 1.2.840.1 [id number] 21 07152675 Methodi 00:00:00 00:00:[address] 3.430.2.7 Hospit a .3.044103 l .8 2021-10-29 2021-10-29 Travel 1.2.840.1 1.2.057.424 7272 386976 Methodi 00:00:00 00:00:[address] 3.430.2.7 0.2.7.3.698 Ho spita .3.577654 084.8 l .8 2021-10-22 2021-10-22 Office Kem, 1.2.840.1 944574377 779 4718909 Methodi 09:40:00 10:17:00 Visit Rebecca Nguyen 00857.1.[address] 3.430.2.7 Hospit a .3.455417 l .8 2021-10-22 2021-10-22 Travel 1.2.840.1 1.2.716.976 0089 400437 Methodi 00:00:00 00:00:[address] 3.430.2.7 0.2.7.3.698 Ho spita .3.850804 084.8 l .8 2021-10-14 2021-10-15 Emergency Adry, 1.2.840.1 [id number] 937 2317607 Methodi 21:57:00 00:06:00 José H 32075.1.[address] 3.430.2.7 Hospit a .3.581327 l .8 2021-10-12 2021-10-12 Emergency Courtney, 1.2.840.1 [id number] 2099 665432 Methodi 10:13:00 14:37:[address] Swann 15731.1.[address] 3.430.2.7 Hospit a .3.468578 l .8 2021-10-09 2021-10-09 Telephone Juan Carlos Rivers 1.2.840.1 [id number] [id number] Methodi 00:00:00 00:00:[address] 3.430.2.7 Hospit a .3.772676 l .8 2021-10-09 2021-10-09 Telephone Juan Carlos Rivers 1.2.840.1 [id number] [id number] Methodi 00:00:00 00:00:[address] 3.430.2.7 Hospit a .3.074901 l .8 2021-10-09 2021-10-09 Orders Alicia, 1.2.840.1 931361043 881799 6354 Methodi 00:00:00 00:00:00 Only Shell 13195.1.[address] [place] 3.430.2.7 Hospi ta .3.020186 l .8 2021-10-02 2021-10-02 Telephone Lazarus, 1.2.840.1 [id number] 365 9917781 Methodi 00:00:00 00:00:[address] 3.430.2.7 Hospit a .3.410029 l .8 2021-09-30 2021-09-30 Surgery Kem, 1.2.840.1 542607284 069 2093152 Methodi 07:15:00 09:02:00 Rebecca Nguyen 70251.1.[address] 3.430.2.7 Hospit a .3.453545 l .8 2021-09-30 2021-09-30 Hospital Kem 1.2.840.1 [id number] 21 [id number] Methodi 06:02:00 08:50:00 Encounter Rebecca Nguyen 28571.1.[address] 3.430.2.7 Hospit a .3.118151 l .8 2021-09-30 2021-09-30 Anesthesia Tomas Mattson. 1.2.840.1 1045 79176 3286037829 Methodi 07:05:00 08:04:00 Event Sunita Marie 02862.1.[address] 3.430.2.7 Hospit a .3.947778 l .8 2021-09-26 2021-09-26 Outpatient [facility] 2100 405227 [place] 00:00:00 00:00:00 REBECCA Baumann Method i st 2021-09-19 2021-09-19 Travel 1.2.840.1 1.2.058.846 1639 273548 Methodi 00:00:00 00:00:[address] 3.430.2.7 0.2.7.3.698 Ho spita .3.346053 084.8 l .8 2021-09-19 2021-09-19 Orders Marrero, 1.2.840.1 [id number] 2100 983839 Methodi 00:00:00 00:00:00 Only Sharon 59634.1.[address] 3.430.2.7 Hospit a .3.771173 l .8 2021-09-19 2021-09-19 Orders Tavares, 1.2.840.1 329691528 402636 0851 Methodi 00:00:00 00:00:00 Only Peggy 84378.1.[address] 3.430.2.7 Hospit a .3.365384 l .8 2021-09-18 2021-09-18 Orders Propes, 1.2.840.1 610231943 142568 8670 Methodi 00:00:00 00:00:00 Only Pina 75419.1.[address] 3.430.2.7 Hospit a .3.792090 l .8 2021-09-14 2021-09-14 Orders Tavares, 1.2.840.1 724264393 800633 5765 Methodi 00:00:00 00:00:00 Only Peggy 68295.1.[address] 3.430.2.7 Hospit a .3.022450 l .8 2021-09-11 2021-09-11 Office Tavares, 1.2.840.1 553429586 587858 4011 Methodi 15:50:00 16:55:49 Visit Peggy 96807.1.[address] 3.430.2.7 Hospit a .3.256607 l .8 2021-09-11 2021-09-11 Travel 1.2.840.1 1.2.403.302 3999 196339 Methodi 00:00:00 00:00:[address] 3.430.2.7 0.2.7.3.698 Ho spita .3.418123 084.8 l .8 2021-09-10 2021-09-10 Office Kem, 1.2.840.1 [id number] 421 4395944 Methodi 10:40:00 11:03:05 Visit Rebecca Nguyen 86926.1.[address] 3.430.2.7 Hospit a .3.208823 l .8 2021-09-10 2021-09-10 Orders Edmundo, 1.2.840.1 [id number] 2099 939539 Methodi 00:00:00 00:00:00 Only Jami 40166.1.[address] 3.430.2.7 Hospit a .3.526288 l .8 2021-09-10 2021-09-10 Outpatient [facility] 2100 280391 [place] 00:00:00 00:00:00 REBECCA Tran Method i st 2021-08-31 2021-08-31 Refill Alicia, 1.2.840.1 [id number] 082345 0465 Methodi 00:00:00 00:00:[address] [place] 3.430.2.7 Hospi ta .3.998902 l .8 2021-08-31 2021-08-31 Refill Prasanth, 1.2.840.1 948938105 100973 4538 Methodi 00:00:00 00:00:00 Eddie Franco 65790.1.[address] 3.430.2.7 Hospit a .3.033768 l .8 2021-08-29 2021-08-29 Telephone Denisse, 1.2.840.1 104613914 2100 371462 Methodi 00:00:00 00:00:00 [place] Ray 20664.1.[address] 3.430.2.7 Hospit a .3.573415 l .8 2021-08-29 2021-08-29 Orders Iscorwin, 1.2.840.1 [id number] 171790 9434 Methodi 00:00:00 00:00:00 Only Shell 34165.1.[address] [place] 3.430.2.7 Hospi ta .3.154392 l .8 2021-08-28 2021-08-28 Travel 1.2.840.1 1.2.665.301 7807 760005 Methodi 00:00:00 00:00:[address] 3.430.2.7 0.2.7.3.698 Ho spita .3.748625 084.8 l .8 2021-08-26 2021-08-26 Emergency Mazin, 1.2.840.1 [id number] 2099 862544 Methodi 16:36:00 20:08:[address] Adrienne 3.430.2.7 Hospit a .3.092098 l .8 2021-08-26 2021-08-26 Orders Colmenter, 1.2.840.1 [id number] 085 8172132 Methodi 00:00:00 00:00:00 Only Linda 09435.1.[address] 3.430.2.7 Hospit a .3.231700 l .8 2021-08-21 2021-08-21 Orders Colmenter, 1.2.840.1 [id number] 612 9708254 Methodi 00:00:00 00:00:00 Only Linda 57114.1.[address] 3.430.2.7 Hospit a .3.430062 l .8 2021-08-14 2021-08-14 Office Colmenter, 1.2.840.1 772037891 643 2877969 Methodi 11:00:00 13:05:34 Visit Linda 33299.1.[address] 3.430.2.7 Hospit a .3.723976 l .8 2021-08-12 2021-08-12 Office Prasanth, 1.2.840.1 655563841 137547 0277 Methodi 10:00:00 11:08:57 Visit Eddie AldridgeChantal 40948.1.[address] 3.430.2.7 Hospit a .3.555918 l .8 2021-08-12 2021-08-12 Travel 1.2.840.1 1.2.437.423 1803 083830 Methodi 00:00:00 00:00:[address] 3.430.2.7 0.2.7.3.698 Ho spita .3.756821 084.8 l .8 2021-08-08 2021-08-08 Emergency EM Lynda, HCAKW SHIRLENE [id number] [facility] 12:48:00 19:41:00 Di 70 [facility] 2021-08-08 2021-08-08 Emergency EM Lynda, HCAKW HCAKW [id number] [facility] 12:48:00 19:41:00 Di [id number] [facility] 2021-08-08 2021-08-08 Outpatient Lynda, HCACL LABO [id number] [facility] 19:09:00 19:09:00 Di 00 [facility] 2021-08-08 2021-08-08 Transcribe Alicia, 1.2.840.1 [id number] 590 [id number] Methodi 00:00:00 00:00:00 Orders Shell 40898.1.[address] Doe 3.430.2.7 Hospi ta .3.808157 l .8 2021-08-06 2021-08-06 Emergency Myles Martin 1.2.840.1 [id number] Methodi 14:54:00 18:50:[address] 3.430.2.7 Hospit a .3.818038 l .8 2021-08-06 2021-08-06 Travel 1.2.840.1 1.2.694.618 7957 799700 Methodi 00:00:00 00:00:[address] 3.430.2.7 0.2.7.3.698 Ho spita .3.942896 084.8 l .8 2021-08-04 2021-08-04 Office Alicia, 1.2.840.1 [id number] 942671 4222 Methodi 14:20:00 15:33:19 Visit Shell 24605.1.[address] [place] 3.430.2.7 Hospi ta .3.996861 l .8 2021-08-04 2021-08-04 Travel 1.2.840.1 1.2.685.122 9347 068673 Methodi 00:00:00 00:00:[address] 3.430.2.7 0.2.7.3.698 Ho spita .3.595527 084.8 l .8 2021-07-31 2021-07-31 Emergency Nelson Villagran 1.2.840.1 [id number] Methodi 21:39:00 23:28:[address] 3.430.2.7 Hospit a .3.970420 l .8 2021-07-31 2021-07-31 Travel 1.2.840.1 1.2.493.487 2413 689821 Methodi 00:00:00 00:00:[address] 3.430.2.7 0.2.7.3.698 Ho spita .3.341471 084.8 l .8 2021-07-30 2021-07-30 Emergency Myles Martin 1.2.840.1 [id number] Methodi 13:34:00 17:16:[address] 3.430.2.7 Hospit a .3.251695 l .8 2021-07-30 2021-07-30 Telephone Istre, 1.2.840.1 [id number] 2099 789638 Methodi 00:00:00 00:00:[address] Doe 3.430.2.7 Hospi ta .3.453362 l .8 2021-07-28 2021-07-28 Outpatient [facility] [id number] 879 [place] 00:00:00 00:00:00 PEGGY Smith Method i st 2021-07-24 2021-07-24 Orders Lopez, 1.2.840.1 [id number] 05228 54574 Methodi 00:00:00 00:00:00 Only Maureen 15123.1.[address] 3.430.2.7 Hospit a .3.845262 l .8 2021-07-23 2021-07-23 Orders Istre, 1.2.840.1 748765305 720223 0836 Methodi 00:00:00 00:00:00 Only Shell 03060.1.[address] [place] 3.430.2.7 Hospi ta .3.615239 l .8 2021-07-21 2021-07-21 Orders Istre, 1.2.840.1 896353577 220318 4966 Methodi 00:00:00 00:00:00 Only Shell 14041.1.[address] Doe 3.430.2.7 Hospi ta .3.970036 l .8 2021-07-15 2021-07-15 Telephone Oleksandr, 1.2.840.1 [id number] Methodi 00:00:00 00:00:[address] 3.430.2.7 Hospit a .3.791456 l .8 2021-07-15 2021-07-15 Travel 1.2.840.1 1.2.566.980 7146 513170 Methodi 00:00:00 00:00:[address] 3.430.2.7 0.2.7.3.698 Ho spita .3.780466 084.8 l .8 2021-07-10 2021-07-10 Treatment Shell Vargas 1.2.840.1 [id number] Methodi 09:00:00 10:00:00 TavaresPeggy puentes [address] Fredrick Smooth 3.430.2.7 H ospita .3.414414 l .8 2021-07-10 2021-07-10 Plan of 1.2.840.1 [id number] 038010 0546 Methodi 00:00:00 00:00:[address] Documentat 3.430.2.7 Hos margie ion .3.718224 l .8 2021-07-09 2021-07-09 Travel 1.2.840.1 1.2.248.513 3208 740198 Methodi 00:00:00 00:00:[address] 3.430.2.7 0.2.7.3.698 Ho spita .3.992750 084.8 l .8 2021-07-09 2021-07-09 Orders Istre, 1.2.840.1 [id number] 827647 4744 Methodi 00:00:00 00:00:00 Only Shell 90275.1.[address] Doe 3.430.2.7 Hospi ta .3.991214 l .8 2021-07-03 2021-07-03 Travel 1.2.840.1 1.2.242.389 4571 685304 Methodi 00:00:00 00:00:[address] 3.430.2.7 0.2.7.3.698 Ho spita .3.433864 084.8 l .8 2021-06-30 2021-06-30 Emergency Tyshawn, Nelson 1.2.840.1 [id number] Methodi 14:43:00 20:06:[address] 3.430.2.7 Hospit a .3.184546 l .8 2021-06-19 2021-06-19 Orders [place], 1.2.840.1 [id number] 286799 1520 Methodi 00:00:00 00:00:00 Only Susanne 90294.1.[address] 3.430.2.7 Hospit a .3.460195 l .8 2021-06-18 2021-06-18 Orders Tran, 1.2.840.1 [id number] 507144 8443 Methodi 00:00:00 00:00:00 Only Kortney 55421.1.[address] 3.430.2.7 Hospit a .3.253191 l .8 2021-06-18 2021-06-18 Telephone Jessica, 1.2.840.1 [id number] 657 [id number] Methodi 00:00:00 00:00:[address] 3.430.2.7 Hospit a .3.298235 l .8 2021-06-16 2021-06-16 Office Prasanth, 1.2.840.1 [id number] 999982 9350 Methodi 11:40:00 13:03:55 Visit Eddie Franco 45600.1.[address] 3.430.2.7 Hospit a .3.773864 l .8 2021-06-16 2021-06-16 Travel 1.2.840.1 1.2.006.384 6063 539445 Methodi 00:00:00 00:00:[address] 3.430.2.7 0.2.7.3.698 Ho spita .3.913918 084.8 l .8 2021-06-03 2021-06-03 Refhilda [place], 1.2.840.1 [id number] 182757 9494 Methodi 00:00:00 00:00:[address] 3.430.2.7 Hospit a .3.254302 l .8 2021-06-03 2021-06-03 Telephone Brady, 1.2.840.1 [id number] 2100 558166 Methodi 00:00:00 00:00:[address] 3.430.2.7 Hospit a .3.972128 l .8 2021-06-02 2021-06-02 Emergency Gunnar, 1.2.840.1 [id number] 2 [id number] Methodi 10:56:00 13:23:00 Mario Crook 95507.1.1 [address] 3.430.2.7 Hospit a .3.724934 l .8 2021-06-02 2021-06-02 Orders Alicia, 1.2.840.1 012428094 786180 2179 Methodi 00:00:00 00:00:00 Only Shell 63657.1.[address] [place] 3.430.2.7 Hospi ta .3.613118 l .8 2021-05-30 2021-05-30 Treatment Shell Vargas 1.2.840.1 [id number] [id number] Methodi 10:00:00 11:00:00 Smooth [place] 46241.1.[address] 3.430.2.7 Hospit a .3.297703 l .8 2021-05-28 2021-05-28 Orders Alicia, 1.2.840.1 876447074 751073 4369 Methodi 00:00:00 00:00:00 Only Shell 11670.1.[address] [place] 3.430.2.7 Hospi ta .3.111641 l .8 2021-05-27 2021-05-27 Travel 1.2.840.1 1.2.950.230 2737 889100 Methodi 00:00:00 00:00:[address] 3.430.2.7 0.2.7.3.698 Ho spita .3.381311 084.8 l .8 2021-05-19 2021-05-19 Evaluation Shell Vargas 1.2.840.1 [id number] Methodi 11:00:00 12:00:00 Tavares Peggy 05045.1.[address] [place] 3.430.2.7 H ospita .3.014958 l .8 2021-05-19 2021-05-19 Plan of 1.2.840.1 [id number] 521206 3544 Methodi 00:00:00 00:00:[address] Documentat 3.430.2.7 Hos margie ion .3.612297 l .8 2021-05-192021-05-19 Travel 1.2.840.1 1.2.117.657 7572 917578 Methodi 00:00:00 00:00:[address] 3.430.2.7 0.2.7.3.698 Ho spita .3.401522 084.8 l .8 2021-05-09 2021-05-09 Travel 1.2.840.1 1.2.027.231 7524 317826 Methodi 00:00:00 00:00:[address] 3.430.2.7 0.2.7.3.698 Ho spita .3.398550 084.8 l .8 2021-05-09 2021-05-09 Outpatient [facility] [id number] 977 [place] 00:00:00 00:00:[address] PEGGY [address] 2021-05-06 2021-05-06 Orders Istre, 1.2.840.1 [id number] 8829 Methodi 00:00:00 00:00:00 Only Shell 36218.1.[address] Doe 3.430.2.7 Hospi ta .3.831592 l .8 2021-05-05 2021-05-05 Outpatient [facility] [id number] 738 [place] 00:00:00 00:00:[address] PE[address] 2021-05-04 2021-05-04 Emergency Oghogho, 1.2.840.1 [id number] 213 8062894 Methodi 14:39:00 18:56:[address] 3.430.2.7 Hospit a .3.616703 l .8 2021-05-04 2021-05-04 Travel 1.2.840.1 1.2.743.940 6726 219598 Methodi 00:00:00 00:00:[address] 3.430.2.7 0.2.7.3.698 Ho spita .3.436148 084.8 l .8 2021-05-02 2021-05-02 [facility], [facility] [address] 9[address] [place] 00:00:00 00:00:00 [facility] 2021-04-30 2021-04-30 Travel 1.2.840.1 1.2.422.519 9720 581817 Methodi 00:00:00 00:00:[address] 3.430.2.7 0.2.7.3.698 Ho spita .3.193745 084.8 l .8 2021-04-28 2021-04-28 Orders Istre, 1.2.840.1 902940539 671132 7001 Methodi 00:00:00 00:00:00 Only Shell 06446.1.[address] [place] 3.430.2.7 Hospi ta .3.457534 l .8 2021-04-17 2021-04-17 Office Istre, 1.2.840.1 [id number] 385406 9972 Methodi 15:00:00 15:00:06 Visit Shell 68414.1.[address] [place] 3.430.2.7 Hospi ta .3.581891 l .8 2021-04-16 2021-04-16 Travel 1.2.840.1 1.2.232.596 2002 333713 Methodi 00:00:00 00:00:[address] 3.430.2.7 0.2.7.3.698 Ho spita .3.427619 084.8 l .8 2021-04-12 2021-04-12 Emergency Svach, 1.2.840.1 507735719 2099 014465 Methodi 15:47:00 22:48:00 Shine R [address]40.1.[address] 3.430.2.7 Hospit a .3.333412 l .8 2021-04-08 2021-04-08 Travel 1.2.840.1 1.2.148.614 7246 158134 Methodi 00:00:00 00:00:[address] 3.430.2.7 0.2.7.3.698 Ho spita .3.936802 084.8 l .8 2021-03-28 2021-03-28 Office Ed Mirelesshelleycorwin Nunes [facility] [id number] 1 [id number] [place] 08:30:00 09:30:00 Visit Jackie [facility] 2021-03-28 2021-03-28 [facility] [address]10 6844 [place] 00:00:00 00:00:00 [facility] 2021-03-14 2021-03-14 Outpatient RADHA, [facility] [address] 1468 [place] 00:00:00 00:00:00 [facility] 2021-03-03 2021-03-03 Telephone Alicia, 1.2.840.1 [id number] 2099 430302 Methodi 11:20:00 11:48:51 Consult Shell [address].1.[address] [place] 3.430.2.7 Hospi ta .3.760301 l .8 2021-02-27 2021-02-27 Travel 1.2.840.1 1.2.464.405 [id number] Methodi 00:00:00 00:00:[address] 3.430.2.7 0.2.7.3.698 Ho spita .3.017844 084.8 l .8 2021-02-19 2021-02-19 Outpatient VECHONGA, [facility] [id number] [place] 00:00:00 00:00:00 PIMPRAPA 626 Metho di 2021-02-17 2021-02-17 Outpatient [facility] [id number] 297 [place] 00:00:00 00:00:00 482 Method i 2021-02-17 2021-02-17 Outpatient STACI, [facility] [id number] 406 [place] 00:00:00 00:00:00 PROCTOR 706 Method i 2021-02-10 2021-02-10 Outpatient TAVARES, [facility] [id number] 790 [place] 00:00:00 00:00:00 PEGGY 856 Method i 2021-02-07 2021-02-07 Outpatient ALICIA, [facility] [id number] 637 [place] 00:00:00 00:00:00 SHELL 793 Method i 2021-01-30 2021-01-31 Outpatient IMELDA, [facility] [id number] 174 [place] 00:00:00 00:00:00 KRISTY 451 Method i 2021-01-25 2021-01-25 Emergency KENA KILLIAN [facility] 064 [id number] [place] 00:00:00 00:00:00 190 Method i 2021-01-24 2021-01-24 Outpatient CARLY, [facility] [id number] [place] 00:00:00 00:00:00 PIMPRAPA 711 Metho di 2021-01-09 2021-01-09 Outpatient [facility] [id number] 646 [place] 00:00:00 00:00:00 247 Method i 2020-12-29 2020-12-29 Emergency VASQUEZ, [facility] 064 [id number] 98 [place] 00:00:00 00:00:00 CRISTÓBAL 225 Method i 2020-12-23 2020-12-23 Outpatient PRASANTH, [facility] [id number] 498 [place] 00:00:00 00:00:00 EDDIE 305 Method i 2020-12-11 2020-12-11 Emergency VASQUEZ, [facility] 064 [id number] 96 [place] 00:00:00 00:00:00 CRISTÓBAL 030 Method i 2020-12-08 2020-12-08 Emergency COURTNEY, [facility] 064 [id number] 26 [place] 00:00:00 00:00:00 TRUNG 699 Method i 2020-11-25 2020-11-26 Office Doug Estevez [facility] Encounter/ Legacy 00:00:00 00:00:00 Visit Symone Moreau [id number] Communi [id number] [facility] 2020-11-25 2020-11-26 Office Doug Estevez [facility] Encounter/ Legacy 00:00:00 00:00:00 Visit Symone Moreau [id number] Communi [id number] [facility] 2020-11-18 2020-11-18 Outpatient SMALL, [facility] [id number] [place] 00:00:00 00:00:00 PROCTOR 729 Method i 2020-11-02 2020-11-02 Emergency HALEY, [facility] [id number] [place] 00:00:00 00:00:00 ROGER 241 Method i 2020-10-29 2020-10-29 Outpatient SMALL, [facility] [id number] 857 [place] 00:00:00 00:00:00 PROCTOR [address] 2020-10-25 2020-10-25 Outpatient VEJPONGSA, [facility] [id number] [id number] [place] 00:00:00 00:00:00 PIMPRAPA 573 Metho di 2020-10-24 2020-10-24 Outpatient VEJPONGSA, [facility] [id number] [place] 00:00:00 00:00:00 PIMPRAPA 921 Metho di 2020-10-18 2020-10-19 Emergency HOPE, [facility] 064 [id number] 58 [place] 00:00:00 00:00:00 TRUNG 724 Method i 2020-10-18 2020-10-18 Outpatient SMALL, [facility] [id number] 110 [place] 00:00:00 00:00:00 PROCTOR 224 Method i 2020-10-11 2020-10-11 Emergency COURTNEY, [facility] 064 [id number] 52 [place] 00:00:00 00:00:00 TRUNG 080 Method i 2020-10-09 2020-10-09 Outpatient PRASANTH, [facility] [id number] 499 [place] 00:00:00 00:00:00 EDDIE 020 Method i 2020-10-01 2020-10-01 Outpatient AHMED, [facility] [id number] 980 [place] 00:00:00 00:00:00 MOHAMMAD 768 Metho di 2020-09-26 2020-09-26 Outpatient SMALL, [facility] [id number] 765 [place] 00:00:00 00:00:00 PROCTOR 047 Method i 2020-09-13 2020-09-13 Outpatient PRASANTH, [facility] [id number] [place] 00:00:00 00:00:00 EDDIE [address] 2020-09-11 2020-09-11 Outpatient CARLY, [facility] [id number] [place] 00:00:00 00:00:00 PIMPRAPA 754 Metho di 2020-08-23 2020-08-23 Outpatient AHMED, [facility] [id number] 605 [place] 00:00:00 00:00:00 MOHAMMAD 132 Metho di 2020-08-19 2020-08-21 Outpatient MELTON, [place] [id number] 265 [place] 00:00:00 00:00:00 TRUNG 187 Method i 2020-07-31 2020-08-01 Outpatient ARREDONDO, [place] [id number] 975 [place] 00:00:00 00:00:00 RG 628 Met hodi 2020-07-16 2020-07-16 Emergency HOPE, [place] [id number] 18 [place] 00:00:00 00:00:00 TRUNG 600 Method i 2020-07-05 2020-07-05 Outpatient BROCK, [facility] [id number] [place] 00:00:00 00:00:[address] [facility] 2020-07-05 2020-07-05 Emergency VASQUEZ, [facility] [id number] 62 [place] 00:00:00 00:00:00 CRISTÓBAL 088 Method i 2020-06-28 2020-06-28 Outpatient STACI, [facility] [id number] 302 [place] 00:00:00 00:00:00 PROCTOR 174 Method i 2020-06-27 2020-06-27 Outpatient PRASANTH, [facility] [id number] 221 [place] 00:00:00 00:00:00 EDDIE 576 Method i 2020-06-24 2020-06-24 Outpatient ISCORWIN, [facility] [id number] [place] 00:00:00 00:00:00 SHELL 509 Method i 2020-06-19 2020-06-20 Emergency TAOISM, [facility] 064 [id number] 53 [place] 00:00:00 00:00:00 NADIM 685 Method i 2020-06-11 2020-06-11 Outpatient SMALL, [facility] [id number] 229 [place] 00:00:00 00:00:00 PROCTOR 214 Method i 2020-06-11 2020-06-11 Outpatient SMALL, [facility] [id number] 908 [place] 00:00:00 00:00:00 PROCTOR [address] 2020-06-06 2020-06-06 Outpatient ISTRE, [facility] [id number] [place] 00:00:00 00:00:00 SHELL 498 Method i 2020-06-03 2020-06-03 Outpatient ISTRE, [facility] [id number] 559 [place] 00:00:00 00:00:00 SHELL 193 Method i 2020-06-03 2020-06-03 Outpatient ISTRE, [facility] [id number] 559 [place] 00:00:00 00:00:00 SHELL 363 Method i 2020-05-26 2020-05-27 Outpatient SMALL, [facility] [id number] [place] 00:00:00 00:00:00 HAYLEE 766 Method i 2020-05-24 2020-05-24 Emergency JOSSY, [place] [id number] 24 [place] 00:00:00 00:00:00 BELKIS 964 Method i 2020-05-23 2020-05-23 Emergency FORMAN, [facility] 064 [id number] 56 [place] 00:00:00 00:00:00 TANIA 926 Method i 2020 2020 Outpatient ISTRE, [facility] [id number] [place] 00:00:00 00:00:00 SHELL 882 Method i 2020 2020 Emergency KENDIG, [facility] 064 [id number] 65 [place] 00:00:00 00:00:00 KALIF 304 Method i 2020-05-20 2020-05-20 Outpatient ISTRE, [facility] [id number] 407 [place] 00:00:00 00:00:00 SHELL 217 Method i 2020-05-13 2020-05-13 Outpatient MIRELES, [facility] [id number] [place] 00:00:00 00:00:00 TRACILYN Healt h 2020-05-11 2020-05-11 Emergency HOPE, [facility] [id number] 87 [place] 00:00:00 00:00:00 TRUNG [address] 2020-05-07 2020-05-07 Outpatient ROGER ZAPATA [facility] [id number] [place] 07:48:18 07:48:18 Health 2020-04-15 2020-04-15 Emergency KENA KILLIAN [facility] [id number] [place] 00:00:00 00:00:[address] 2020-04-01 2020-04-01 Emergency KI, [facility] 064 [id number] 10 [place] 00:00:00 00:00:00 KALIF [address] 2020-03-23 2020-03-24 Inpatient CHRISTA, [facility] [id number] [place] 00:00:00 00:00:00 STEPHY [address] 2020-03-23 2020-03-23 Emergency HOPE, [facility] 064 [id number] 79 [place] 00:00:00 00:00:00 TRUNG [address] 2020-03-20 2020-03-20 Emergency ALTAGRACIA [facility] 064 [id number] [place] 00:00:00 00:00:[address] 2020-02-29 2020-03-01 Emergency DE CRANDALL, [place] [address] [id number] 1088 [place] 00:00:00 00:00:00 EMY 731 Me thodi 2020-02-05 2020-02-06 Emergency ENE, [facility] 064 [id number] 9007 [place] 00:00:00 00:00:00 KEM [address] 2020-02-03 2020-02-03 Emergency DE CRANDALL, [place] [address] [id number] 7154 [place] 00:00:00 00:00:00 EMY [address] 2019-12-20 2019-12-21 Emergency ENE, [facility] [id number] [place] 00:00:00 00:00:00 KEM [address] 2019-12-14 2019-12-14 Emergency KI, [facility] 064 [id number] 06 [place] 00:00:00 00:00:00 KALIF [address] 2019-12-11 2019-12-11 Emergency HOPE, [facility] 064 [id number] 68 [place] 00:00:00 00:00:00 TRUNG [address] 2019-12-08 2019-12-08 Emergency SUSHIL, [facility] [id number] [place] 00:00:00 00:00:00 ISAC [address] 2019-11-24 2019-11-24 Outpatient ROGER ZAPATA [facility] [id number] [place] 00:00:00 00:00:00 Health 2019-11-21 2019-11-21 Emergency NELSON [facility] [id number] [id number] [place] 00:00:00 00:00:[address] 2019-11-14 2019-11-14 Outpatient ROGER ZAPATA [facility] [id number] [place] 06:55:06 06:55:06 Health 2019-11-13 2019-11-13 Outpatient [facility] [id number] [place] 00:00:00 00:00:00 Health 2019-11-10 2019-11-11 Emergency HOPE, [facility] [id number] [id number] 84 [place] 00:00:00 00:00:00 TRUNG [place] [facility] 2019-11-07 2019-11-07 Outpatient [facility] [id number] [place] 14:24:03 14:24:03 Health 2019-11-07 2019-11-07 Outpatient [facility] [id number] [place] 12:22:44 12:22:44 Health 2019-11-07 2019-11-07 Outpatient [facility] [id number] [place] 00:00:00 00:00:00 Health 2019-11-07 2019-11-07 Outpatient [facility] [id number] [place] 00:00:00 00:00:00 Health 2019-10-30 2019-10-30 Outpatient [facility] [id number] [place] 11:49:58 11:49:58 Health 2019-10-30 2019-10-30 Outpatient [facility] [id number] [place] 00:00:00 00:00:00 Health 2019-10-12 2019-10-12 Outpatient [facility] [id number] [place] 00:00:00 00:00:00 Health 2019-10-10 2019-10-10 Outpatient [facility] [id number] [place] 08:15:33 08:15:33 Health 2019-10-09 2019-10-09 Outpatient [facility] [id number] [place] 00:00:00 00:00:00 Health 2019-09-25 2019-09-25 Outpatient [facility] [id number] [place] 00:00:00 00:00:00 Health 2019-09-19 2019-09-19 Outpatient [facility] [id number] [place] 15:17:15 15:17:15 Health 2019-09-12 2019-09-12 Outpatient [facility] [id number] [place] 09:33:27 09:33:27 Health 2019-09-12 2019-09-12 Outpatient [facility] [id number] [place] 08:35:47 08:35:47 Health 2019-09-12 2019-09-12 Outpatient [facility] [id number] [place] 00:00:00 00:00:00 Health 2019-09-09 2019-09-09 Emergency HOPE, [facility] [id number] 57 [place] 00:00:00 00:00:00 TRUNG [address] 2019-08-25 2019-08-25 Outpatient [facility] [id number] [place] 06:54:32 06:54:32 Health 2019-08-24 2019-08-24 Outpatient [facility] [id number] [place] 00:00:00 00:00:00 Health 2019-08-23 2019-08-23 Outpatient [facility] [id number] [place] 00:00:00 00:00:00 Health 2019-08-05 2019-08-05 Emergency [facility] [id number] 83 [place] 00:00:00 00:00:00 OTILIO, [address] 2019-08-03 2019-08-03 Emergency [facility] 064 [id number] [place] 00:00:00 00:00:[address] 2019-07-24 2019-07-24 Outpatient [facility] [id number] [place] 08:35:14 08:35:14 Health 2019-06-21 2019-06-21 Outpatient [facility] [id number] [place] 00:00:00 00:00:00 Health 2019-06-15 2019-06-16 Emergency HOPE, [facility] [id number] [id number] 79 [place] 00:00:00 00:00:00 TRUNG [address] 2019-06-15 2019-06-15 Emergency [facility] [id number] [place] 14:03:00 14:03:00 Health 2019-06-14 2019-06-14 Outpatient [facility] [id number] [place] 00:00:00 00:00:00 Health 2019-06-08 2019-06-08 Outpatient [facility] [id number] [place] 13:49:26 13:49:26 [facility] 2019-06-08 2019-06-08 Outpatient [facility] [id number] [place] 13:11:00 13:11:00 [facility] 2019-06-08 2019-06-08 Outpatient [facility] [id number] [place] 00:00:00 00:00:00 [facility] 2019-06-07 2019-06-07 Emergency [facility] [id number] [place] 12:06:12 12:06:12 [facility] 2019-06-07 2019-06-07 Emergency [facility] [id number] [place] 10:57:48 10:57:48 [facility] 2019-03-15 2019-03-15 Outpatient [facility] [id number] [place] 14:00:36 14:00:36 [facility] 2019-03-15 2019-03-15 Outpatient [facility] [id number] [place] 12:20:09 12:20:09 [facility] 2019-03-15 2019-03-15 Outpatient [facility] [id number] [place] 00:00:00 00:00:00 [facility] 2019-01-25 2019-01-25 Outpatient [facility] [id number] [place] 10:20:47 10:20:47 [facility] 2019-01-13 2019-01-13 Outpatient [facility] [id number] [place] 10:25:55 10:25:55 [facility] 2019-01-03 2019-01-03 Outpatient [facility] [id number] [place] 10:33:43 10:33:43 [facility] 2019-01-03 2019-01-03 Outpatient [facility] [id number] [place] 08:40:50 08:40:50 [facility] 2019-01-03 2019-01-03 Outpatient [facility] [id number] [place] 07:58:31 07:58:31 [facility] 2019-01-03 2019-01-03 Outpatient [facility] [id number] [place] 00:00:00 00:00:00 [facility] 2018-12-29 2018-12-29 Outpatient [facility] [id number] [place] 00:00:00 00:00:00 [facility] 2018-12-27 2018-12-27 Outpatient [facility] [id number] [place] 00:00:00 00:00:00 [facility] 2018-12-26 2018-12-26 Outpatient [facility] [id number] [place] 16:37:58 16:37:58 Health 2018-12-09 2018-12-09 Outpatient [facility] [id number] [place] 16:51:56 16:51:56 [facility] 2018-12-09 2018-12-09 Outpatient [facility] [id number] [place] 14:15:31 14:15:31 Health 2018-12-09 2018-12-09 Outpatient [facility] [id number] [place] 00:00:00 00:00:00 [facility] 2018-11-26 2018-11-26 Emergency [facility] [id number] [place] 16:08:40 16:08:40 [facility] 2018-01-17 2018-01-17 Outpatient E MYRNA CEDENO [facility] [id number] [place] 10:49:00 12:30:00 [facility] 2017-12-28 2017-12-28 Outpatient E MILES [facility] [id number] [place] 10:12:00 12:25:00 PAUL [facility] 2017-12-20 2017-12-20 Outpatient E MYRNA CEDENO [facility] [id number] [place] 23:13:00 23:50:00 Medica l Center 2017-10-15 2017-10-15 Outpatient E SHEIKH [facility] [id number] [place] 09:57:00 11:15:00 [facility] [place] Results Test Description Test Time Test Comments Results Result Comments Source ECG 12 lead 2022-03-24 04:27:49 Test Item Value Reference Range Interpretation Comme nts Ventricular rate (test code = 253) Atrial rate (test code = 255) IN interval (test code = 266) QRSD interval [...] of 28-NOV-2021 10:26,-No significant change was found- [facility] [id number] 04:27:49 Test Item Value Reference Range Interpretation Comments Ventricular rate (test code = 253) Atrial rate (test code = 255) IN interval (test code = 266) QRSD interval [...] of 28-NOV-2021 10:26,-No significant change was found- [address]2022-12-13 04:27:49 Test Item Value Reference Range Interpretation Comments Ventricular rate (test code = 253) Atrial rate (test code = 255) IN interval (test code = 266) QRSD interval [...] of 28-NOV-2021 10:26,-No significant change was found- [address]2022-12-13 04:27:49 Test Item Value Reference Range Interpretation Comments Ventricular rate (test 71 code = 253) Atrial rate (test code 71 = 255) IN interval (test code 124 = 266) QRSD [...] of 28-NOV-2021 10:26,-No significant change was found- [address]2022-12-13 04:27:49 Test Item Value Reference Range Interpretation Comments Ventricular rate (test 71 code = 253) Atrial rate (test code 71 = 255) IN interval (test code 124 = 266) QRSD [...] of 28-NOV-2021 10:26,-No significant change was found- [address]2022-12-13 04:27:49 Test Item Value Reference Range Interpretation Comments Ventricular rate (test 71 code = 253) Atrial rate (test code 71 = 255) IN interval (test code 124 = 266) QRSD [...] of 28-NOV-2021 10:26,-No significant change was found- [address]2022-12-13 04:27:49 Test Item Value Reference Range Interpretation Comments Ventricular rate (test 71 code = 253) Atrial rate (test code 71 = 255) IN interval (test code 124 = 266) QRSD [...] of 28-NOV-2021 10:26,-No significant change was found- [address]2022-12-13 04:27:49 Test Item Value Reference Range Interpretation Comments Ventricular rate (test 71 code = 253) Atrial rate (test code 71 = 255) IN interval (test code 124 = 266) QRSD [...] of 28-NOV-2021 10:26,-No significant change was found- [address]2022-12-13 04:27:49 Test Item Value Reference Range Interpretation Comments Ventricular rate (test 71 code = 253) Atrial rate (test code 71 = 255) IN interval (test code 124 = 266) QRSD [...] of 28-NOV-2021 10:26,-No significant change was found- [address]2022-12-13 04:27:49 Test Item Value Reference Range Interpretation Comments Ventricular rate (test 71 code = 253) Atrial rate (test code 71 = 255) IN interval (test code 124 = 266) QRSD [...] of 28-NOV-2021 10:26,-No significant change was found- [address]2022-12-13 04:27:49 Test Item Value Reference Range Interpretation Comments Ventricular rate (test 71 code = 253) Atrial rate (test code 71 = 255) IN interval (test code 124 = 266) QRSD [...] of 28-NOV-2021 10:26,-No significant change was found- [address]2022-12-13 04:27:49 Test Item Value Reference Range Interpretation Comments Ventricular rate (test 71 code = 253) Atrial rate (test code 71 = 255) IN interval (test code 124 = 266) QRSD [...] of 28-NOV-2021 10:26,-No significant change was found- [address]2022-12-13 04:27:49 Test Item Value Reference Range Interpretation Comments Ventricular rate (test 71 code = 253) Atrial rate (test code 71 = 255) IN interval (test code 124 = 266) QRSD [...] of 28-NOV-2021 10:26,-No significant change was found- [facility]2022-11-10 23:39:00 Test Item Value Reference Range Interpretation Comments Urine culture (test SEE COMMENT Bacteriu brandon screen code = 5318572) negative. [facility]2022-11-10 23:39:00 Test Item Value Reference Range Interpretation Comments Urine culture (test SEE COMMENT Bacteriu brandon screen code = 7564445) negative. [address]11-10 23:39:00 Test Item Value Reference Range Interpretation Comments Urine culture (test SEE COMMENT Bacteriu brandon screen code = 9098642) negative. [place] 021482-11-10 23:39:00 Test Item Value Reference Range Interpretation Comments Urine culture (test SEE COMMENT Bacteriu brandon screen code = 9293524) negative. [facility]2022-11-10 23:39:00 Test Item Value Reference Range Interpretation Comments Urine culture (test SEE COMMENT Bacteriu brandon screen code = 1522038) negative. [facility]2022-11-10 23:39:00 Test Item Value Reference Range Interpretation Comments Urine culture (test SEE COMMENT Bacteriu brandon screen code = 6632369) negative. [facility]2022-11-10 23:39:00 Test Item Value Reference Range Interpretation Comments Urine culture (test SEE COMMENT Bacteriu brandon screen code = 7438685) negative. [facility]2022-11-10 23:39:00 Test Item Value Reference Range Interpretation Comments Urine culture (test SEE COMMENT Bacteriu brandon screen code = 6520043) negative. [address]11[address]10 23:39:00 Test Item Value Reference Range Interpretation Comments Urine culture (test SEE COMMENT Bacteriu brandon screen code = 2917024) negative. [place] 021482-11-10 23:39:00 Test Item Value Reference Range Interpretation Comments Urine culture (test SEE COMMENT Bacteriu brandon screen code = 3027802) negative. [place] 021482-11-10 23:39:00 Test Item Value Reference Range Interpretation Comments Urine culture (test SEE COMMENT Bacteriu brandon screen code = 9442125) negative. [facility] [id number] 23:39:00 Test Item Value Reference Range Interpretation Comments Urine culture (test SEE COMMENT Bacteriu brandon screen code = 4869483) negative. [facility] [id number] 23:39:00 Test Item Value Reference Range Interpretation Comments Urine culture (test SEE COMMENT Bacteriu brandon screen code = 4392024) negative. [facility] [id number] 23:39:00 Test Item Value Reference Range Interpretation Comments Urine culture (test SEE COMMENT Bacteriu brandon screen code = 0944285) negative. [facility] [id number] 23:39:00 Test Item Value Reference Range Interpretation Comments Urine culture (test SEE COMMENT Bacteriu brandon screen code = 2753406) negative. [facility] [id number] 23:39:00 Test Item Value Reference Range Interpretation Comments Urine culture (test SEE COMMENT Bacteriu brandon screen code = 4115754) negative. [facility] B surface [id number] 22:17:00 Test Item Value Reference Range Interpretation Comments Hepatitis B surface NON-REACTIVE NON-REACTIVE Ag (test code = 5196-1) RAC (test code = RAC) Performing Organization Information: Site ID: RGA Name: [facility] Address: [address] [place] [phone] Director: [facility] with reflex to [id number] 22:17:00 Test Item Value Reference Range Interpretation Comments RPR (test code = NON-REACTIVE NON-REACTIVE 88230-1) RAC (test code = Performing Organization RAC) Information: Site ID: RGA Name: [facility] Address: [address] [place] [phone] Director: Rajinder Grant [facility] C virus (HCV), quantitative [id number] 22:17:00 Test Item Value Reference Interpretation Comments Range HCV RNA, <15 NOT DETECTED NOT DETECTED quantitative PCR IU/mL (test code = 34226-4) HCV viral log <1.18 NOT DETECTED NOT DETECTED This bhupendra t was (test code = Log IU/mL performed using 43061-9) Real-Time Polym erase ChainReaction. Reportable Rang e: 15 IU/mL to 100,00 0,000 IU/mL(1.18 Log IU/mL to 8.00 Log IU/ mL). The analytical performance characteristics of thisassay have been determined by [employer]. Th e modifications h ave not been cleare d or approved bythe FDA. This assay has been validated pursu ant to the CLIA regulations and is used for clinic al purposes. For m ore information on this test, go to:http://educa tion. [employer] /faq/PZJ99r2(Th is link is being provided for informational/e ducat ional purposes only.) RAC (test code = Performing RAC) Organization Information: Site ID: [id number] Name: [facility] Address: [address] [place] [address] Director: [facility] [facility] [id number] 22:17:00 Test Item Value Reference Interpretation Comments Range Hepatitis C Ab (test REACTIVE NON-REACTIVE A code = 73276-2) Signal/cutoff (test >11.00 See_Comment H Based o n this code = 20920-8) result, the sample will be testedf or [...] RAC) Organization Information: Site ID: RGA [facility] Address: [address] [place] [address] Director: Rajinder Grant Lab Interpretation Abnormal (test code = 43938-8) [facility] type 1/2 combined Ab, [id number] 22:17:00 Test Item Value Reference Interpretation Comments Range HSV 1 IgM NEGATIVE (test code = 88354-0) HSV 2 IgM NEGATIVE REFERENCE RANG E: NEGATIVE HSV (test IgM is detectab le in serum code = from >90% of [facility] [address]-1) primary HSV inf ection. However, HSV Ig [...] performancechar acteristics have been deter mined by [employer].It has not been cleared or appr luis by FDA. This assay hasb een validated pursuant to the CLIA regulations and isused for clinical purpos es. RAC (test Performing code = Organization RAC) Information: Site ID: EZ Name: [facility], Address: [address] [place] [address] Director: Crista Camacho MD,PhD,BARI [facility], [place] BridgeV 1/2 antigen/antibody, fourth generation, with reflexes 2022-02-11 22:17:00 Test Item Value Reference Range Interpretation Comments HIV NON-REACTIVE NON-REACTIVE HIV-1 antigen a nd antigen/ant HIV-1/HIV-2 ant ibodies ibody 4th were notdetecte d. There gen (test is no laborator y evidence code = of HIVinfection . PLEASE 16406-3) NOTE: This info rmation has been disclo [...] ad ditional information ple ase refer tohttp://educat ion.Face to Face Live/ faq/ANM177 (This link is b eing provided for informational/e ducational purposes only.) The performance of this assay has not been clinicallyvalid ated in patients less t lagunas 2 years old. RAC (test Performing code = RAC) Organization Information: Site ID: RGA [facility]: [facility] Address: [address] [place] [address] Director: Rajinder Grant [facility] 1 and 2 specific Ab [id number] 22:17:00 Test Item Value Reference Interpretation Comments [...] ease refer to http://educatio n.Ques tDiagnostics.co m/faq/ RDD739 (This li nk is being provided for informational/e ducati onal purposes o nly.) RAC (test code = Performing RAC) Organization Information: Site ID: IG Name: [facility] Address: [address] [place] [address] Director: Dr. Rajinder Grant Lab Interpretation Abnormal (test code = 86297-2) [facility] surface [id number] 22:17:00 Test Item Value Reference Range Interpretation Comments Hepatitis B surface NON-REACTIVE NON-REACTIVE Ag (test code = 5196-1) RAC (test code = RAC) Performing Organization Information: Site ID: RGA [facility]: [facility] Address: [address] [place] [address] Director: Rajinder Grant [facility] AustinRPR with reflex to [id number] 22:17:00 Test Item Value Reference Range Interpretation Comments RPR (test code = NON-REACTIVE NON-REACTIVE 52468-8) RAC (test code = Performing Organization RAC) Information: Site ID: RGA [facility]: [facility] Address: [address] [place] [address] Director: Rajinder Parker [facility] C virus (HCV), quantitative [id number] 22:17:00 Test Item Value Reference Interpretation Comments Range HCV RNA, <15 NOT DETECTED NOT DETECTED quantitative PCR IU/mL (test code = 65307-3) HCV viral log <1.18 NOT DETECTED NOT DETECTED This bhupendra t was (test code = Log IU/mL performed using 19614-0) Real-Time Polym erase ChainReaction. Reportable Rang e: 15 IU/mL to 100,00 0,000 IU/mL(1.18 Log IU/mL to 8.00 Log IU/ mL). The analytical performance characteristics of thisassay have been determined by [employer]. Th e modifications h ave not been cleare d or approved bythe FDA. This assay has been validated pursu ant to the CLIA regulations and is used for clinic al purposes. For m ore information on this test, go to:http://educa tion. BioNanov[employer] /faq/MKM51l5(Th is link is being provided for informational/e ducat ional purposes only.) RAC (test code = Performing RAC) Organization Information: Site ID: IG [facility]: [facility] Address: [address] [place] [address] Director: Dr. Rajinder Parker [facility] C [id number] 22:17:00 Test Item Value Reference Interpretation Comments Range Hepatitis C Ab (test REACTIVE NON-REACTIVE A code = 97009-5) Signal/cutoff (test >11.00 See_Comment H Based o n this code = 91400-7) result, the sample will be testedf or [...] RAC) Organization Information: Site ID: RGA Name: [facility] Address: [address] [place] [address] Director: Rajinder Grant Lab Interpretation Abnormal (test code = 79392-9) [facility] RehabilitationHSV type 1/2 combined Ab, [id number] 22:17:00 Test Item Value Reference Interpretation Comments Range HSV 1 IgM NEGATIVE (test code = 63684-8) HSV 2 IgM NEGATIVE REFERENCE RANG E: NEGATIVE HSV (test IgM is detectab le in serum code = from >90% of [facility] [address]-9) primary HSV inf ection. However, HSV Ig [...] performancechar acteristics have been deter mined by [employer].It has not been cleared or appr luis by FDA. This assay hasb een validated pursuant to the CLIA regulations and isused for clinical purpos es. RAC (test Performing code = Organization RAC) Information: Site ID: EZ Name: [facility], Address: [address] [place] [address] Director: Crista Camacho MD,PhD,BARI [facility]HIV 1/2 antigen/antibody, fourth generation, with reflexes 2022-02-11 22:17:00 Test Item Value Reference Range Interpretation Comments HIV NON-REACTIVE NON-REACTIVE HIV-1 antigen a nd antigen/ant HIV-1/HIV-2 ant ibodies ibody 4th were notdetecte d. There gen (test is no laborator y evidence code = of HIVinfection . PLEASE 39993-8) NOTE: This info rmation has been disclo [...] ad ditional information ple ase refer tohttp://educat ion.Face to Face Live/ faq/ZAZ107 (This link is b eing provided for informational/e ducational purposes only.) The performance of this assay has not been clinicallyvalid ated in patients less t lagunas 2 years old. RAC (test Performing code = RAC) Organization Information: Site ID: RGA [facility]: [facility] Address: [address] [place] [address] Director: Rajinder Grant [facility] AustinHSV 1 and 2 specific Ab [id number] 22:17:00 Test Item Value Reference Interpretation Comments [...] additional information, pl ease refer to http://educatio nasgoodasnew electronics GmbH.Reduce Data /faq/FA Q118 (This link is being provided for informational/e ducatio nal purposes on ly.) RAC (test code = Performing RAC) Organization Information: Site ID: IG Name: [facility] Address: [address] [place] [address] Director: Dr. Rajinder Grant Lab Interpretation Abnormal (test code = 51950-8) [facility] B surface [id number] 22:17:00 Test Item Value Reference Range Interpretation Comments Hepatitis B surface NON-REACTIVE NON-REACTIVE Ag (test code = 5196-1) RAC (test code = RAC) Performing Organization Information: Site ID: RGA Name: [facility] Address: [address] [place] [address] Director: Rajinder Grant [facility] AustinRPR with reflex to [id number] 22:17:00 Test Item Value Reference Range Interpretation Comments RPR (test code = NON-REACTIVE NON-REACTIVE 70507-5) RAC (test code = Performing Organization RAC) Information: Site ID: RGA Name: [facility] Address: [address] [place] [address] Director: Rajinder Grant [facility] C virus (HCV), quantitative [id number] 22:17:00 Test Item Value Reference Interpretation Comments Range HCV RNA, <15 NOT DETECTED NOT DETECTED quantitative PCR IU/mL (test code = 36013-0) HCV viral log <1.18 NOT DETECTED NOT DETECTED This bhupendra t was (test code = Log IU/mL performed using 26577-1) Real-Time Polym erase ChainReaction. Reportable Rang e: 15 IU/mL to 100,00 0,000 IU/mL(1.18 Log IU/mL to 8.00 Log IU/ mL). The analytical performance characteristics of thisassay have been determined by [employer]. Th e modifications h ave not been cleare d or approved bythe FDA. This assay has been validated pursu ant to the CLIA regulations and is used for clinic al purposes. For m ore information on this test, go to:http://educa tion. BioNanovations /faq/ENW13k3(Th is link is being provided for informational/e ducat ional purposes only.) RAC (test code = Performing RAC) Organization Information: Site ID: IG Name: [facility] Address: [address] [place] [address] Director: Dr. Rajinder Grant [facility] C [id number] 22:17:00 Test Item Value Reference Interpretation Comments Range Hepatitis C Ab (test REACTIVE NON-REACTIVE A code = 29807-8) Signal/cutoff (test >11.00 See_Comment H Based o n this code = 30534-7) result, the sample will be testedf or [...] RAC) Organization Information: Site ID: RGA Name: [facility] Lab Address: [address] [place] [address] Director: Rajinder Grant Lab Interpretation Abnormal (test code = 60249-9) [facility], [id number] 22:17:00 Test Item Value Reference Interpretation Comments Range HSV 1 IgM NEGATIVE (test code = 50828-9) HSV 2 IgM NEGATIVE REFERENCE RANG E: NEGATIVE HSV (test IgM is detectab le in serum code = from >90% of [facility] [address]-7) primary HSV inf ection. However, HSV Ig [...] performancechar acteristics have been deter mined by [employer].It has not been cleared or appr luis by FDA. This assay hasb een validated pursuant to the CLIA regulations and isused for clinical purpos es. RAC (test Performing code = Organization RAC) Information: Site ID: EZ Name: [facility], Address: [address] [place] [address] Director: Crista Camacho MD,PhD,BARI [facility]V 1/2 antigen/antibody, fourth generation, with reflexes 2022-02-11 22:17:00 Test Item Value Reference Range Interpretation Comments HIV NON-REACTIVE NON-REACTIVE HIV-1 antigen a nd antigen/ant HIV-1/HIV-2 ant ibodies ibody 4th were notdetecte d. There gen (test is no laborator y evidence code = of HIVinfection . PLEASE 66327-4) NOTE: This info rmation has been disclo [...] ad ditional information ple ase refer tohttp://educat ion.Face to Face Live/ faq/ABJ314 (This link is b eing provided for informational/e ducational purposes only.) The performance of this assay has not been clinicallyvalid ated in patients less t lagunas 2 years old. RAC (test Performing code = RAC) Organization Information: Site ID: RGA Name: [facility] Address: [address] [place] [address] Director: Rajinder Parker [facility]HS[facility] and 2 specific Ab [id number] 22:17:00 Test Item Value Reference Interpretation Comments [...] ease refer to http://educatio nReza tDiagnostics.co m/faq/ UJI984 (This li nk is being provided for informational/e ducati onal purposes o nly.) RAC (test code = Performing RAC) Organization Information: Site ID: IG Name: [facility] Lab Address: [address] [place] [address] Director: Dr. Rajinder Grant Lab Interpretation Abnormal (test code = 26110-6) [facility] B surface [id number] 22:17:00 Test Item Value Reference Range Interpretation Comments Hepatitis B surface NON-REACTIVE NON-REACTIVE Ag (test code = 5196-1) RAC (test code = RAC) Performing Organization Information: Site ID: RGA Name: [facility] Address: [address] [place] [address] Director: Rajinder Grant [facility] AustinRP with reflex to [id number] 22:17:00 Test Item Value Reference Range Interpretation Comments RPR (test code = NON-REACTIVE NON-REACTIVE 68450-1) RAC (test code = Performing Organization RAC) Information: Site ID: RGA Name: [facility] Address: [address] [place] [address] Director: Rajinder Grant [facility] C virus (HCV), quantitative [id number] 22:17:00 Test Item Value Reference Interpretation Comments Range HCV RNA, <15 NOT DETECTED NOT DETECTED quantitative PCR IU/mL (test code = 21427-8) HCV viral log <1.18 NOT DETECTED NOT DETECTED This bhupendra t was (test code = Log IU/mL performed using 90763-4) Real-Time Polym erase ChainReaction. Reportable Rang e: 15 IU/mL to 100,00 0,000 IU/mL(1.18 Log IU/mL to 8.00 Log IU/ mL). The analytical performance characteristics of thisassay have been determined by [employer]. Th e modifications h ave not been cleare d or approved bythe FDA. This assay has been validated pursu ant to the CLIA regulations and is used for clinic al purposes. For m ore information on this test, go to:http://educa dylon. BioNanovations /faq/GBM77b1(Th is link is being provided for informational/e ducat ional purposes only.) RAC (test code = Performing RAC) Organization Information: Site ID: IG Name: [facility] Address: [address] [place] [address] Director: Dr. Rajinder Grant [facility] [id number] 22:17:00 Test Item Value Reference Interpretation Comments Range Hepatitis C Ab (test REACTIVE NON-REACTIVE A code = 32292-8) Signal/cutoff (test >11.00 See_Comment H Based o n this code = 01727-5) result, the sample will be testedf or [...] RAC) Organization Information: Site ID: RGA Name: [facility] Lab Address: [address] [place] [address] Director: Rajinder Grant Lab Interpretation Abnormal (test code = 12034-5) [facility] type [facility]2 combined Ab, [id number] 22:17:00 Test Item Value Reference Interpretation Comments Range HSV 1 IgM NEGATIVE (test code = 08080-9) HSV 2 IgM NEGATIVE REFERENCE RANG E: NEGATIVE HSV (test IgM is detectab le in serum code = from >90% of [place] [address]-4) primary HSV inf ection. However, HSV Ig [...] performancechar acteristics have been deter mined by [employer].It has not been cleared or appr luis by FDA. This assay hasb een validated pursuant to the CLIA regulations and isused for clinical purpos es. RAC (test Performing code = Organization RAC) Information: Site ID: EZ Name: [facility], Address: [address] [place] [address] Director: Crista Camacho MD,PhD,BARI [facility] CenterV 1/2 antigen/antibody, fourth generation, with reflexes 2022-02-11 22:17:00 Test Item Value Reference Range Interpretation Comments HIV NON-REACTIVE NON-REACTIVE HIV-1 antigen a nd antigen/ant HIV-1/HIV-2 ant ibodies ibody 4th were notdetecte d. There gen (test is no laborator y evidence code = of HIVinfection . PLEASE 89021-7) NOTE: This info rmation has been disclo [...] ad ditional information ple ase refer tohttp://educat ion.ContractRoom.Reduce Data/ faq/QGW991 (This link is b eing provided for informational/e ducational purposes only.) The performance of this assay has not been clinicallyvalid ated in patients less t lagunas 2 years old. RAC (test Performing code = RAC) Organization Information: Site ID: RGA Name: [facility] Address: [address] [place] [address] Director: Rajinder Grant [facility] HospitalHSV [facility] and 2 specific Ab [id number] 22:17:00 Test Item Value Reference Interpretation Comments [...] ease refer to http://educatio n.Ques tDiagnostics.co m/faq/ RME548 (This li nk is being provided for informational/e ducati onal purposes o nly.) RAC (test code = Performing RAC) Organization Information: Site ID: IG Name: [facility] Lab Address: [address] [place] [address] Director: Dr. Rajinder Grant Lab Interpretation Abnormal (test code = 29521-6) [facility] surface [id number] 22:17:00 Test Item Value Reference Range Interpretation Comments Hepatitis B surface NON-REACTIVE NON-REACTIVE Ag (test code = 5196-1) RAC (test code = RAC) Performing Organization Information: Site ID: RGA Name: [facility] Address: [address] [place] [address] Director: Rajinder Grant [facility] AustinRP with reflex to [id number] 22:17:00 Test Item Value Reference Range Interpretation Comments RPR (test code = NON-REACTIVE NON-REACTIVE 52610-0) RAC (test code = Performing Organization RAC) Information: Site ID: RGA Name: [facility] Address: [address] [place] [address] Director: Rajinder Grant [facility] C virus (HCV), quantitative [id number] 22:17:00 Test Item Value Reference Interpretation Comments Range HCV RNA, <15 NOT DETECTED NOT DETECTED quantitative PCR IU/mL (test code = 67568-9) HCV viral log <1.18 NOT DETECTED NOT DETECTED This bhupendra t was (test code = Log IU/mL performed using 38783-9) Real-Time Polym erase [employer]Re[employer]. Reportable Rang e: 15 IU/mL to 100,00 0,000 IU/mL(1.18 Log IU/mL to 8.00 Log IU/ mL). The analytical performance characteristics of thisassay have been determined by [employer]. Th e modifications h ave not been cleare d or approved bythe FDA. This assay has been validated pursu ant to the CLIA regulations and is used for clinic al purposes. For m ore information on this test, go to:http://Eversight. Bio[employer] /faq/PUW62y9( is link is being provided for informational/e ducat ional purposes only.) RAC (test code = Performing RAC) Organization Information: Site ID: IG Name: [facility] Address: [address] [place] [address] Director: Dr. Rajinder Grant [facility] C [id number] 22:17:00 Test Item Value Reference Interpretation Comments Range Hepatitis C Ab (test REACTIVE NON-REACTIVE A code = 86772-4) Signal/cutoff (test >11.00 See_Comment H Based o n this code = 30541-9) result, the sample will be testedf or [...] RAC) Organization Information: Site ID: RGA [facility] Address: [address] [place] [address] Director: Rajinder Grant Lab Interpretation Abnormal (test code = 09404-2) [facility]2 combined Ab, [id number] 22:17:00 Test Item Value Reference Interpretation Comments Range HSV 1 IgM NEGATIVE (test code = 56290-0) HSV 2 IgM NEGATIVE REFERENCE RANG E: NEGATIVE HSV (test IgM is detectab le in serum code = from >90% of [place] [address]-7) primary HSV inf ection. However, HSV Ig [...] performancechar acteristics have been deter mined by [employer].It has not been cleared or appr luis by FDA. This assay hasb een validated pursuant to the CLIA regulations and isused for clinical purpos es. RAC (test Performing code = Organization RAC) Information: Site ID: EZ Name: [facility], Address: [address] [place] [address] Director: Crista Camacho MD,PhD,BARI [facility] HospitalHIV 1/2 antigen/antibody, fourth generation, with reflexes 2022-02-11 22:17:00 Test Item Value Reference Range Interpretation Comments HIV NON-REACTIVE NON-REACTIVE HIV-1 antigen a nd antigen/ant HIV-1/HIV-2 ant ibodies ibody 4th were notdetecte d. There gen (test is no laborator y evidence code = of HIVinfection . PLEASE 45387-0) NOTE: This info rmation has been disclo [...] ad ditional information ple ase refer tohttp://educat ion.Face to Face Live/ faq/SHQ971 (This link is b eing provided for informational/e ducational purposes only.) The performance of this assay has not been clinicallyvalid ated in patients less t lagunas 2 years old. RAC (test Performing code = RAC) Organization Information: Site ID: RGA Name: [facility] Address: [address] [place] [address] Director: Rajinder Grant [facility] AustinHSV 1 and 2 specific Ab [id number] 22:17:00 Test Item Value Reference Interpretation Comments [...] ease refer to http://educatio n.Tri tDiagnostics.co m/faq/ JMS327 (This li nk is being provided for informational/e ducati onal purposes o nly.) RAC (test code = Performing RAC) Organization Information: Site ID: IG Name: [facility] Lab Address: [address] [place] [address] Director: Dr. Rajinder Grant Lab Interpretation Abnormal (test code = 79446-5) [facility] surface [id number] 22:17:00 Test Item Value Reference Range Interpretation Comments Hepatitis B surface NON-REACTIVE NON-REACTIVE Ag (test code = 5196-1) RAC (test code = RAC) Performing Organization Information: Site ID: RGA Name: [facility] Address: [address] [place] [address] Director: Rajinder Grant [facility] AustinRP with reflex to [id number] 22:17:00 Test Item Value Reference Range Interpretation Comments RPR (test code = NON-REACTIVE NON-REACTIVE 16575-7) RAC (test code = Performing Organization RAC) Information: Site ID: RGA Name: [facility] Address: [address] [place] [address] Director: Rajinder Grant [facility] C virus (HCV), quantitative [id number] 22:17:00 Test Item Value Reference Interpretation Comments Range HCV RNA, <15 NOT DETECTED NOT DETECTED quantitative PCR IU/mL (test code = 69976-0) HCV viral log <1.18 NOT DETECTED NOT DETECTED This bhupendra t was (test code = Log IU/mL performed using 35797-6) Real-Time Polym erase [employer]Reaction. Reportable Rang e: 15 IU/mL to 100,00 0,000 IU/mL(1.18 Log IU/mL to 8.00 Log IU/ mL). The analytical performance characteristics of thisassay have been determined by [employer]. Th e modifications h ave not been cleare d or approved bythe FDA. This assay has been validated pursu ant to the CLIA regulations and is used for clinic al purposes. For m ore information on this test, go to:http://educa tion. [employer] /faq/ELI60x4(Th is link is being provided for informational/e ducat ional purposes only.) RAC (test code = Performing RAC) Organization Information: Site ID: IG Name: [facility] Address: [address] [place] [address] Director: Dr. Rajinder Grant [facility] C [id number] 22:17:00 Test Item Value Reference Interpretation Comments Range Hepatitis C Ab (test REACTIVE NON-REACTIVE A code = 34579-9) Signal/cutoff (test >11.00 See_Comment H Based o n this code = 06091-1) result, the sample will be testedf or [...] RAC) Organization Information: Site ID: RGA Name: [facility] Address: [address] [place] [phone] Director: Rajinder Grant Lab Interpretation Abnormal (test code = 03761-2) [facility] Austin[facility]V type 1/2 combined Ab, [id number] 22:17:00 Test Item Value Reference Interpretation Comments Range HSV 1 IgM NEGATIVE (test code = 44642-3) HSV 2 IgM NEGATIVE REFERENCE RANG E: NEGATIVE HSV (test IgM is detectab le in serum code = from >90% of [facility] [address]-3) primary HSV inf ection. However, HSV Ig [...] performancechar acteristics have been deter mined by [employer].It has not been cleared or appr luis by FDA. This assay hasb een validated pursuant to the CLIA regulations and isused for clinical purpos es. RAC (test Performing code = Organization RAC) Information: Site ID: EZ Name: [facility] [facility], Address: [address] [place] [phone] Director: Crista Camacho MD,PhD,BARI [facility] AustinHIV 1/2 antigen/antibody, fourth generation, with reflexes 2022-02-11 22:17:00 Test Item Value Reference Range Interpretation Comments HIV NON-REACTIVE NON-REACTIVE HIV-1 antigen a nd antigen/ant HIV-1/HIV-2 ant ibodies ibody 4th were notdetecte d. There gen (test is no laborator y evidence code = of HIVinfection . PLEASE 15276-3) NOTE: This info rmation has been disclo [...] ad ditional information ple ase refer tohttp://educat ion.Face to Face Live/ faq/KSM547 (This link is b eing provided for informational/e ducational purposes only.) The performance of this assay has not been clinicallyvalid ated in patients less t lagunas 2 years old. RAC (test Performing code = RAC) Organization Information: Site ID: RGA [facility] Address: [address] [place] [phone] Director: Rajinder Grant [facility] AustinHSV 1 and 2 specific Ab [id number] 22:17:00 Test Item Value Reference Interpretation Comments [...] ease refer to http://educatio n.Tri tDiagnostics.co m/faq/ DPI151 (This li nk is being provided for informational/e ducati onal purposes o nly.) RAC (test code = Performing RAC) Organization Information: Site ID: IG Name: [facility] Address: [address] [place] [address] Director: Dr. Rajinder Grant Lab Interpretation Abnormal (test code = 46977-5) [facility] B surface [id number] 22:17:00 Test Item Value Reference Range Interpretation Comments Hepatitis B surface NON-REACTIVE NON-REACTIVE Ag (test code = 5196-1) RAC (test code = RAC) Performing Organization Information: Site ID: RGA [facility] Address: [address] [place] [address] Director: Rajinder Grant [facility] Austin[facility] with reflex to [id number] 22:17:00 Test Item Value Reference Range Interpretation Comments RPR (test code = NON-REACTIVE NON-REACTIVE 67880-9) RAC (test code = Performing Organization RAC) Information: Site ID: RGA [facility] Address: [address] [place] [address] Director: Rajinder Grant [facility] C virus (HCV), quantitative [id number] 22:17:00 Test Item Value Reference Interpretation Comments Range HCV RNA, <15 NOT DETECTED NOT DETECTED quantitative PCR IU/mL (test code = 63776-9) HCV viral log <1.18 NOT DETECTED NOT DETECTED This bhupendra t was (test code = Log IU/mL performed using 14588-0) Real-Time Polym erase ChainReaction. Reportable Rang e: 15 IU/mL to 100,00 0,000 IU/mL(1.18 Log IU/mL to 8.00 Log IU/ mL). The analytical performance characteristics of thisassay have been determined by [employer]. Th e modifications h ave not been cleare d or approved bythe FDA. This assay has been validated pursu ant to the CLIA regulations and is used for clinic al purposes. For m ore information on this test, go to:http://educa tion. [employer] /faq/VQN93m0(Th is link is being provided for informational/e ducat ional purposes only.) RAC (test code = Performing RAC) Organization Information: Site ID: IG [facility]: [facility] Address: [address] [place] [address] Director: Dr. Rajinder Grant [facility] AustinHepatitis C [id number] 22:17:00 Test Item Value Reference Interpretation Comments Range Hepatitis C Ab (test REACTIVE NON-REACTIVE A code = 32038-4) Signal/cutoff (test >11.00 <=1.00 H Based o n this code = 02051-0) result, the sample will be testedf or HCV RNA by a Nucleic Acid Amplification T est (NAAT)to determ ine if the patient has a current activeinfection . RAC (test code = Performing RAC) Organization Information: Site ID: RGA [facility] Address: [address] [place] [phone] Director: Rajinder Grant Lab Interpretation Abnormal (test code = 04547-9) [facility], [id number] 22:17:00 Test Item Value Reference Interpretation Comments Range HSV 1 IgM NEGATIVE (test code = 64437-0) HSV 2 IgM NEGATIVE REFERENCE RANG E: NEGATIVE HSV (test IgM is detectab le in serum code = from >90% of [facility] [address]-4) primary HSV inf ection. However, HSV Ig [...] performancechar acteristics have been deter mined by [facility].It has not been cleared or appr luis by FDA. This assay hasb een validated pursuant to the CLIA regulations and isused for clinical purpos es. RAC (test Performing code = Organization RAC) Information: Site ID: EZ Name: [facility], Address: [address] [place] [address] Director: Crista Camacho MD,PhD,BARI [facility] AustinHIV 1/2 antigen/antibody, fourth generation, with reflexes 2022-02-11 22:17:00 Test Item Value Reference Range Interpretation Comments HIV NON-REACTIVE NON-REACTIVE HIV-1 antigen a nd antigen/ant HIV-1/HIV-2 ant ibodies ibody 4th were notdetecte d. There gen (test is no laborator y evidence code = of HIVinfection . PLEASE 91452-1) NOTE: This info rmation has been disclo [...] ad ditional information ple ase refer tohttp://educat ion.ContractRoom.Red[employer]/ faq/SVV163 (This link is b eing provided for informational/e ducational purposes only.) The performance of this assay has not been clinicallyvalid ated in patients less t lagunas 2 years old. RAC (test Performing code = RAC) Organization Information: Site ID: RGA [facility]: [facility] Address: [address] [place] [address] Director: Rajinder Grant [facility] AustinHSV 1 and 2 specific Ab [id number] 22:17:00 Test Item Value Reference Interpretation Comments [...] ease refer to http://educatio n.Ques tDiagnostics.co m/faq/ TME071 (This li nk is being provided for informational/e ducati onal purposes o nly.) RAC (test code = Performing RAC) Organization Information: Site ID: IG Name: [facility] Address: [address] [place] [phone] Director: Dr. Rajinder Grant Lab Interpretation Abnormal (test code = 87863-6) [facility] B surface [id number] 22:17:00 Test Item Value Reference Range Interpretation Comments Hepatitis B surface NON-REACTIVE NON-REACTIVE Ag (test code = 5196-1) RAC (test code = RAC) Performing Organization Information: Site ID: RGA [facility]: [facility] Address: [address] [place] [phone] Director: Rajinder [facility] with reflex to [id number] 22:17:00 Test Item Value Reference Range Interpretation Comments RPR (test code = NON-REACTIVE NON-REACTIVE 73334-3) RAC (test code = Performing Organization RAC) Information: Site ID: RGA [facility]: [facility] Address: [address] [place] [address] Director: Rajinder Grant [facility] C virus (HCV), quantitative [id number] 22:17:00 Test Item Value Reference Interpretation Comments Range HCV RNA, <15 NOT DETECTED NOT DETECTED quantitative PCR IU/mL (test code = 83478-1) HCV viral log <1.18 NOT DETECTED NOT DETECTED This bhupendra t was (test code = Log IU/mL performed using 70183-9) Real-Time Polym erase ChainReaction. Reportable Rang e: 15 IU/mL to 100,00 0,000 IU/mL(1.18 Log IU/mL to 8.00 Log IU/ mL). The analytical performance characteristics of thisassay have been determined by [employer]. Th e modifications h ave not been cleare d or approved bythe FDA. This assay has been validated pursu ant to the CLIA regulations and is used for clinic al purposes. For m ore information on this test, go to:http://educa tion. [employer] /faq/STT98y6(Th is link is being provided for informational/e ducat ional purposes only.) RAC (test code = Performing RAC) Organization Information: Site ID: IG [facility]: [facility] Address: [address] [place] [address] Director: Dr. Rajinder Grant [facility] [id number] 22:17:00 Test Item Value Reference Interpretation Comments Range Hepatitis C Ab (test REACTIVE NON-REACTIVE A code = 39352-7) Signal/cutoff (test >11.00 <=1.00 H Based o n this code = 47355-7) result, the sample will be testedf or HCV RNA by a Nucleic Acid Amplification T est (NAAT)to determ ine if the patient has a current activeinfection . RAC (test code = Performing RAC) Organization Information: Site ID: RGA [facility] Address: [address] [place] [address] Director: Rajinder Grant Lab Interpretation Abnormal (test code = 41076-4) [facility]2 combined Ab, [id number] 22:17:00 Test Item Value Reference Interpretation Comments Range HSV 1 IgM NEGATIVE (test code = 87619-0) HSV 2 IgM NEGATIVE REFERENCE RANG E: NEGATIVE HSV (test IgM is detectab le in serum code = from >90% of [place] [address]83-3) primary HSV inf ection. However, HSV Ig [...] performancechar acteristics have been deter mined by [facility].It has not been cleared or appr luis by FDA. This assay hasb een validated pursuant to the CLIA regulations and isused for clinical purpos es. RAC (test Performing code = Organization RAC) Information: Site ID: EZ Name: [facility], Address: [address] [place] [address] Director: Crista Camacho MD,PhD,BARI [facility] RehabilitationHIV 1/2 antigen/antibody, fourth generation, with reflexes 2022-02-11 22:17:00 Test Item Value Reference Range Interpretation Comments HIV NON-REACTIVE NON-REACTIVE HIV-1 antigen a nd antigen/ant HIV-1/HIV-2 ant ibodies ibody 4th were notdetecte d. There gen (test is no laborator y evidence code = of HIVinfection . PLEASE 35062-4) NOTE: This info rmation has been disclo [...] ad ditional information ple ase refer tohttp://educat ion.Face to Face Live/ faq/SXK381 (This link is b eing provided for informational/e ducational purposes only.) The performance of this assay has not been clinicallyvalid ated in patients less t lagunas 2 years old. RAC (test Performing code = RAC) Organization Information: Site ID: RGA [facility]: [facility] Address: [address] [place] [address] Director: Rajinder Grant [facility] AustinHSV 1 and 2 specific Ab [id number] 22:17:00 Test Item Value Reference Interpretation Comments [...] additional information, pl ease refer to http://educatio n.[employer].com /faq/FA Q118 (This link is being provided for informational/e ducatio nal purposes on ly.) RAC (test code = Performing RAC) Organization Information: Site ID: IG Name: [facility] Address: [address] [place] [address] Director: Dr. Rajinder Grant Lab Interpretation Abnormal (test code = 98403-9) [facility] AustinHep[facility] B surface [id number] 22:17:00 Test Item Value Reference Range Interpretation Comments Hepatitis B surface NON-REACTIVE NON-REACTIVE Ag (test code = 5196-1) RAC (test code = RAC) Performing Organization Information: Site ID: RGA [facility]: [facility] Address: [address] [place] [address] Director: Rajinder Grant [facility] AustinRP with reflex to [id number] 22:17:00 Test Item Value Reference Range Interpretation Comments RPR (test code = NON-REACTIVE NON-REACTIVE 29597-7) RAC (test code = Performing Organization RAC) Information: Site ID: RGA [facility]: [facility] Address: [address] [place] [address] Director: [facility] C virus (HCV), quantitative [id number] 22:17:00 Test Item Value Reference Interpretation Comments Range HCV RNA, <15 NOT DETECTED NOT DETECTED quantitative PCR IU/mL (test code = 83264-0) HCV viral log <1.18 NOT DETECTED NOT DETECTED This bhupendra t was (test code = Log IU/mL performed using 25753-0) Real-Time Polym erase ChainReaction. Reportable Rang e: 15 IU/mL to 100,00 0,000 IU/mL(1.18 Log IU/mL to 8.00 Log IU/ mL). The analytical performance characteristics of thisassay have been determined by [employer]. Th e modifications h ave not been cleare d or approved bythe FDA. This assay has been validated pursu ant to the CLIA regulations and is used for clinic al purposes. For m ore information on this test, go to:http://educa tion. [employer] /faq/OEE37m5(Th is link is being provided for informational/e ducat ional purposes only.) RAC (test code = Performing RAC) Organization Information: Site ID: IG [facility]: [facility] Address: [address] [place] [address] Director: Dr. Rajinder Grant [facility] [id number] 22:17:00 Test Item Value Reference Interpretation Comments Range Hepatitis C Ab (test REACTIVE NON-REACTIVE A code = 63861-5) Signal/cutoff (test >11.00 <=1.00 H Based o n this code = 82038-5) result, the sample will be testedf or HCV RNA by a Nucleic Acid Amplification T est (NAAT)to determ ine if the patient has a current activeinfection . RAC (test code = Performing RAC) Organization Information: Site ID: RGA [facility] Address: [address] [place] [phone] Director: Rajinder Grant Lab Interpretation Abnormal (test code = 40464-8) [facility] type 1/2 combined Ab, [id number] 22:17:00 Test Item Value Reference Interpretation Comments Range HSV 1 IgM NEGATIVE (test code = 50305-9) HSV 2 IgM NEGATIVE REFERENCE RANG E: NEGATIVE HSV (test IgM is detectab le in serum code = from >90% of [place] trace[place] [address]-0) primary HSV inf ection. However, HSV Ig [...] performancechar acteristics have been deter mined by [facility] [employer].It has not been cleared or appr luis by FDA. This assay hasb een validated pursuant to the CLIA regulations and isused for clinical purpos es. RAC (test Performing code = Organization RAC) Information: Site ID: EZ Name: [facility], Address: [address] [place] [address] Director: Crista Camacho MD,PhD,BARI [facility]HIV [facility]/2 antigen/antibody, fourth generation, with reflexes 2022-02-11 22:17:00 Test Item Value Reference Range Interpretation Comments HIV NON-REACTIVE NON-REACTIVE HIV-1 antigen a nd antigen/ant HIV-1/HIV-2 ant ibodies ibody 4th were notdetecte d. There gen (test is no laborator y evidence code = of HIVinfection . PLEASE 58048-1) NOTE: This info rmation has been disclo [...] ad ditional information ple ase refer tohttp://educat ion.Face to Face Live/ faq/YBE554 (This link is b eing provided for informational/e ducational purposes only.) The performance of this assay has not been clinicallyvalid ated in patients less t lagunas 2 years old. RAC (test Performing code = RAC) Organization Information: Site ID: RGA [facility]: [facility] Address: [address] [place] [address] Director: Rajinder Grant [facility] AustinHSV 1 and 2 specific Ab [id number] 22:17:00 Test Item Value Reference Interpretation Comments [...] ease refer to http://educatio nReza tDiagnostics.co m/faq/ MTW911 (This li nk is being provided for informational/e ducati onal purposes o nly.) RAC (test code = Performing RAC) Organization Information: Site ID: IG Name: [facility] Lab Address: [address] [place] [address] Director: Dr. Rajinder Garnt Lab Interpretation Abnormal (test code = 69057-9) [facility] AustinHepatitis B surface [id number] 22:17:00 Test Item Value Reference Range Interpretation Comments Hepatitis B surface NON-REACTIVE NON-REACTIVE Ag (test code = 5196-1) RAC (test code = RAC) Performing Organization Information: Site ID: RGA [facility]: [facility] Address: [address] [place] [address] Director: Rajinder Grant [facility] AustinRP with reflex to [id number] 22:17:00 Test Item Value Reference Range Interpretation Comments RPR (test code = NON-REACTIVE NON-REACTIVE 06917-2) RAC (test code = Performing Organization RAC) Information: Site ID: RGA [facility]: [facility] Address: [address] [place] [address] Director: Rajinder Grant [facility] C virus (HCV), quantitative [id number] 22:17:00 Test Item Value Reference Interpretation Comments Range HCV RNA, <15 NOT DETECTED NOT DETECTED quantitative PCR IU/mL (test code = 41863-5) HCV viral log <1.18 NOT DETECTED NOT DETECTED This bhupendra t was (test code = Log IU/mL performed using 04150-3) Real-Time Polym erase [employer]. Reportable Rang e: 15 IU/mL to 100,00 0,000 IU/mL(1.18 Log IU/mL to 8.00 Log IU/ mL). The analytical performance characteristics of thisassay have been determined by [employer]. Th e modifications h ave not been cleare d or approved bythe FDA. This assay has been validated pursu ant to the CLIA regulations and is used for clinic al purposes. For m ore information on this test, go to:http://educa tion. [employer] /faq/NND05t5(Th is link is being provided for informational/e ducat ional purposes only.) RAC (test code = Performing RAC) Organization Information: Site ID: IG [facility]: [facility] Address: [address] [place] [address] Director: Dr. Rajinder Grant [facility] C [id number] 22:17:00 Test Item Value Reference Interpretation Comments Range Hepatitis C Ab (test REACTIVE NON-REACTIVE A code = 65778-9) Signal/cutoff (test >11.00 <=1.00 H Based o n this code = 62404-9) result, the sample will be testedf or HCV RNA by a Nucleic Acid Amplification T est (NAAT)to determ ine if the patient has a current activeinfection . RAC (test code = Performing RAC) Organization Information: Site ID: RGA Name: [facility] Address: [address] [place] [address] Director: Rajinder Grant Lab Interpretation Abnormal (test code = 55843-5) [facility]/2 combined Ab, [id number] 22:17:00 Test Item Value Reference Interpretation Comments Range HSV 1 IgM NEGATIVE (test code = 78642-4) HSV 2 IgM NEGATIVE REFERENCE RANG E: NEGATIVE HSV (test IgM is detectab le in serum code = from >90% of [facility] [address]-4) primary HSV inf ection. However, HSV Ig [...] performancechar acteristics have been deter mined by [facility] [employer].It has not been cleared or appr luis by FDA. This assay hasb een validated pursuant to the CLIA regulations and isused for clinical purpos es. RAC (test Performing code = Organization RAC) Information: Site ID: EZ Name: [facility], Address: [address] [place] [address] Director: Crista Camacho MD,PhD,BARI [facility] AustinHIV 1/2 antigen/antibody, fourth generation, with reflexes 2022-02-11 22:17:00 Test Item Value Reference Range Interpretation Comments HIV NON-REACTIVE NON-REACTIVE HIV-1 antigen a nd antigen/ant HIV-1/HIV-2 ant ibodies ibody 4th were notdetecte d. There gen (test is no laborator y evidence code = of HIVinfection . PLEASE 64242-6) NOTE: This info rmation has been disclo [...] ad ditional information ple ase refer tohttp://educat ion.Face to Face Live/ faq/BOQ482 (This link is b eing provided for informational/e ducational purposes only.) The performance of this assay has not been clinicallyvalid ated in patients less t lagunas 2 years old. RAC (test Performing code = RAC) Organization Information: Site ID: RGA [facility] Address: [address] [place] [address] Director: [place] Gir[facility]UT [facility] TylerHSV 1 and 2 specific Ab [id number] 22:17:00 Test Item Value Reference Interpretation Comments [...] additional information, pl ease refer to http://educatio n.[employer] /faq/FA Q118 (This link is being provided for informational/e ducatio nal purposes on ly.) RAC (test code = Performing RAC) Organization Information: Site ID: IG [facility]: [facility] Address: [address] [place] [address] Director: Dr. Rajinder Grant Lab Interpretation Abnormal (test code = 07479-6) [facility] B surface [id number] 22:17:00 Test Item Value Reference Range Interpretation Comments Hepatitis B surface NON-REACTIVE NON-REACTIVE Ag (test code = 5196-1) RAC (test code = RAC) Performing Organization Information: Site ID: RGA [facility] Address: [address] [place] [address] Director: Rajinder Grant [facility] AustinRP with reflex to [id number] 22:17:00 Test Item Value Reference Range Interpretation Comments RPR (test code = NON-REACTIVE NON-REACTIVE 44426-3) RAC (test code = Performing Organization RAC) Information: Site ID: RGA [facility]: [facility] Address: [address] [place] [address] Director: Rajinder Grant [facility] C virus (HCV), quantitative [id number] 22:17:00 Test Item Value Reference Interpretation Comments Range HCV RNA, <15 NOT DETECTED NOT DETECTED quantitative PCR IU/mL (test code = 20977-3) HCV viral log <1.18 NOT DETECTED NOT DETECTED This bhupendra t was (test code = Log IU/mL performed using 77373-9) Real-Time Polym erase [employer]. Reportable Rang e: 15 IU/mL to 100,00 0,000 IU/mL(1.18 Log IU/mL to 8.00 Log IU/ mL). The analytical performance characteristics of thisassay have been determined by [employer]. Th e modifications h ave not been cleare d or approved bythe FDA. This assay has been validated pursu ant to the CLIA regulations and is used for clinic al purposes. For m ore information on this test, go to:http://educa tion. [employer] /faq/XUV11z6(Th is link is being provided for informational/e ducat ional purposes only.) RAC (test code = Performing RAC) Organization Information: Site ID: IG [facility]: [facility] Address: [address] [place] [address] Director: Dr. Rajinder Grant [facility] AustinHep[facility] C [id number] 22:17:00 Test Item Value Reference Interpretation Comments Range Hepatitis C Ab (test REACTIVE NON-REACTIVE A code = 66327-5) Signal/cutoff (test >11.00 <=1.00 H Based o n this code = 58113-9) result, the sample will be testedf or HCV RNA by a Nucleic Acid Amplification T est (NAAT)to determ ine if the patient has a current activeinfection . RAC (test code = Performing RAC) Organization Information: Site ID: RGA [facility] Address: [address] [place] [address] Director: Rajinder Grant Lab Interpretation Abnormal (test code = 21363-8) [facility], [id number] 22:17:00 Test Item Value Reference Interpretation Comments Range HSV 1 IgM NEGATIVE (test code = 43501-2) HSV 2 IgM NEGATIVE REFERENCE RANG E: NEGATIVE HSV (test IgM is detectab le in serum code = [facility] >90% [facility] [address]-9) primary HSV inf ection. However, HSV Ig [...] performancechar acteristics have been deter mined by [employer].It has not been cleared or appr luis by FDA. This assay hasb een validated pursuant to the CLIA regulations and isused for clinical purpos es. RAC (test Performing code = Organization RAC) Information: Site ID: EZ Name: [facility], Address: [address] [place] [address] Director: Crista Camacho MD,PhD,BARI [facility]2 antigen/antibody, fourth generation, with reflexes 2022-02-11 22:17:00 Test Item Value Reference Range Interpretation Comments HIV NON-REACTIVE NON-REACTIVE HIV-1 antigen a nd antigen/ant HIV-1/HIV-2 ant ibodies ibody 4th were notdetecte d. There gen (test is no laborator y evidence code = of HIVinfection . PLEASE 88235-4) NOTE: This info rmation has been disclo [...] ad ditional information ple ase refer tohttp://educat ion.ContractRoom.Reduce Data/ faq/PGF325 (This link is b eing provided for informational/e ducational purposes only.) The performance of this assay has not been clinicallyvalid ated in patients less t lagunas 2 years old. RAC (test Performing code = RAC) Organization Information: Site ID: RGA [facility] Address: [address] [place] [address] Director: Rajinder Grant [facility] 2 specific Ab [id number] 22:17:00 Test Item Value Reference Interpretation Comments [...] ease refer to http://educatio n.Ques tDiagnostics.co m/faq/ RAR878 (This li nk is being provided for informational/e ducati onal purposes o nly.) RAC (test code = Performing RAC) Organization Information: Site ID: IG Name: [facility] Address: [address] [place] [address] Director: Dr. Rajinder Grant Lab Interpretation Abnormal (test code = 91590-9) [facility] B surface [id number] 22:17:00 Test Item Value Reference Range Interpretation Comments Hepatitis B surface NON-REACTIVE NON-REACTIVE Ag (test code = 5196-1) RAC (test code = RAC) Performing Organization Information: Site ID: RGA [facility]: [facility] Address: [address] [place] [address] Director: Rajinder Grant [facility] with reflex to [id number] 22:17:00 Test Item Value Reference Range Interpretation Comments RPR (test code = NON-REACTIVE NON-REACTIVE 24578-6) RAC (test code = Performing Organization RAC) Information: Site ID: RGA Name: [facility] Address: [address] [place] [phone] Director: Rajinder Grant [facility] C virus (HCV), quantitative [id number] 22:17:00 Test Item Value Reference Interpretation Comments Range HCV RNA, <15 NOT DETECTED NOT DETECTED quantitative PCR IU/mL (test code = 19414-9) HCV viral log <1.18 NOT DETECTED NOT DETECTED This bhupendra t was (test code = Log IU/mL performed using 61972-0) Real-Time Polym erase ChainReaction. Reportable Rang e: 15 IU/mL to 100,00 0,000 IU/mL(1.18 Log IU/mL to 8.00 Log IU/ mL). The analytical performance characteristics of thisassay have been determined by [employer]. Th e modifications h ave not been cleare d or approved bythe FDA. This assay has been validated pursu ant to the CLIA regulations and is used for clinic al purposes. For m ore information on this test, go to:http://[employer]sa ContractRoomon. Bio[employer]ations /faq/AFB73p4(Th is link is being provided for informational/e ducat ional purposes only.) RAC (test code = Performing RAC) Organization Information: Site ID: IG [facility]: [facility] Address: [address] [place] [address] Director: Dr. Rajinder Grant [facility] C [id number] 22:17:00 Test Item Value Reference Interpretation Comments Range Hepatitis C Ab (test REACTIVE NON-REACTIVE A code = 49921-4) Signal/cutoff (test >11.00 See_Comment H Based o n this code = 90897-6) result, the sample will be testedf or [...] RAC) Organization Information: Site ID: RGA [facility] Address: [address] [place] [address] Director: Rajinder Grant Lab Interpretation Abnormal (test code = 72855-2) [facility] type 1/2 combined Ab, [id number] 22:17:00 Test Item Value Reference Interpretation Comments Range HSV 1 IgM NEGATIVE (test code = 91064-5) HSV 2 IgM NEGATIVE REFERENCE RANG E: NEGATIVE HSV (test IgM is detectab le in serum code = from >90% of ks tracey 58071-1) primary HSV inf ection. However, HSV Ig [...] performancechar acteristics have been deter mined by [facility].It has not been cleared or appr luis by FDA. This assay hasb een validated pursuant to the CLIA regulations and isused for clinical purpos es. RAC (test Performing code = Organization RAC) Information: Site ID: EZ Name: [facility], Address: [address] [place] [address] Director: Crista Camacho MD,PhD,BARI [facility] for RehabilitationHIV 1/2 antigen/antibody, fourth generation, with reflexes 2022-02-11 22:17:00 Test Item Value Reference Range Interpretation Comments HIV NON-REACTIVE NON-REACTIVE HIV-1 antigen a nd antigen/ant HIV-1/HIV-2 ant ibodies ibody 4th were notdetecte d. There gen (test is no laborator y evidence code = of HIVinfection . PLEASE 90619-4) NOTE: This info rmation has been disclo [...] ad ditional information ple ase refer tohttp://educat ion.Face to Face Live/ faq/UVP806 (This link is b eing provided for informational/e ducational purposes only.) The performance of this assay has not been clinicallyvalid ated in patients less t lagunas 2 years old. RAC (test Performing code = RAC) Organization Information: Site ID: RGA Name: [facility] Address: [address] [place] [address] Director: Rajinder Grant [facility]HS[facility] 1 and 2 specific Ab [id number] 22:17:00 Test Item Value Reference Interpretation Comments [...] additional information, pl ease refer to http://educatio n.[employer].com /faq/FA Q118 (This link is being provided for informational/e ducatio nal purposes on ly.) RAC (test code = Performing RAC) Organization Information: Site ID: IG [facility]: [facility] Address: [address] [place] [address] Director: Dr. Rajinder Grant Lab Interpretation Abnormal (test code = 26252-3) [facility] B surface [id number] 22:17:00 Test Item Value Reference Range Interpretation Comments Hepatitis B surface NON-REACTIVE NON-REACTIVE Ag (test code = 5196-1) RAC (test code = RAC) Performing Organization Information: Site ID: RGA Name: [facility] Address: [address] [place] [address] Director: Rajinder Grant [facility] with reflex to [id number] 22:17:00 Test Item Value Reference Range Interpretation Comments RPR (test code = NON-REACTIVE NON-REACTIVE 66671-8) RAC (test code = Performing Organization RAC) Information: Site ID: RGA Name: [facility] Address: [address] [place] [phone] Director: Rajinder Parker [facility] C virus (HCV), quantitative [id number] 22:17:00 Test Item Value Reference Interpretation Comments Range HCV RNA, <15 NOT DETECTED NOT DETECTED quantitative PCR IU/mL (test code = 47360-2) HCV viral log <1.18 NOT DETECTED NOT DETECTED This bhupendra t was (test code = Log IU/mL performed using 77194-5) Real-Time Polym erase ChainReaction. Reportable Rang e: 15 IU/mL to 100,00 0,000 IU/mL(1.18 Log IU/mL to 8.00 Log IU/ mL). The analytical performance characteristics of thisassay have been determined by [employer]. Th e modifications h ave not been cleare d or approved bythe FDA. This assay has been validated pursu ant to the CLIA regulations and is used for clinic al purposes. For m ore information on this test, go to:http://educa tion. BioNanovations /faq/TVJ36c7(Th is link is being provided for informational/e ducat ional purposes only.) RAC (test code = Performing RAC) Organization Information: Site ID: IG [facility]: [facility] Address: [address] [place] [address] Director: Dr. Rajinder Parker [facility] C [id number] 22:17:00 Test Item Value Reference Interpretation Comments Range Hepatitis C Ab (test REACTIVE NON-REACTIVE A code = 26476-3) Signal/cutoff (test >11.00 See_Comment H Based o n this code = 54659-5) result, the sample will be testedf or [...] RAC) Organization Information: Site ID: RGA [facility]: [facility] Address: [address] [place] [address] Director: Rajinder Grant Lab Interpretation Abnormal (test code = 19232-4) [facility] RehabilitationHSV type 1/2 combined Ab, [id number] 22:17:00 Test Item Value Reference Interpretation Comments Range HSV 1 IgM NEGATIVE (test code = 15003-3) HSV 2 IgM NEGATIVE REFERENCE RANG E: NEGATIVE HSV (test IgM is detectab le in serum code = from >90% of pa tracey 59159-5) primary HSV inf ection. However, HSV Ig [...] performancechar acteristics have been deter mined by [facility].It has not been cleared or appr luis by FDA. This assay hasb een validated pursuant to the CLIA regulations and isused for clinical purpos es. RAC (test Performing code = Organization RAC) Information: Site ID: EZ Name: [facility], Address: [address] [place] [address] Director: Crista Camacho MD,PhD,BARI [facility] AustinHIV 1/2 antigen/antibody, fourth generation, with reflexes 2022-02-11 22:17:00 Test Item Value Reference Range Interpretation Comments HIV NON-REACTIVE NON-REACTIVE HIV-1 antigen a nd antigen/ant HIV-1/HIV-2 ant ibodies ibody 4th were notdetecte d. There gen (test is no laborator y evidence code = of HIVinfection . PLEASE 69893-7) NOTE: This info rmation has been disclo [...] ad ditional information ple ase refer tohttp://educat ion.Face to Face Live/ faq/MRJ970 (This link is b eing provided for informational/e ducational purposes only.) The performance of this assay has not been clinicallyvalid ated in patients less t lagunas 2 years old. RAC (test Performing code = RAC) Organization Information: Site ID: RGA Name: [facility] Address: [address] [place] [address] Director: Rajinder Grant [facility] 1 and 2 specific Ab [id number] 22:17:00 Test Item Value Reference Interpretation Comments [...] ease refer to http://educatio n.Ques tDiagnostics.co m/faq/ LKB059 (This li nk is being provided for informational/e ducati onal purposes o nly.) RAC (test code = Performing RAC) Organization Information: Site ID: IG Name: [facility] Address: [address] [place] [address] Director: Dr. Rajinder Grant Lab Interpretation Abnormal (test code = 27716-2) [facility] B surface [id number] 22:17:00 Test Item Value Reference Range Interpretation Comments Hepatitis B surface NON-REACTIVE NON-REACTIVE Ag (test code = 5196-1) RAC (test code = RAC) Performing Organization Information: Site ID: RGA [facility]: [facility] Address: [address] [place] [address] Director: Rajinder Grant [facility] AustinRPR with reflex to [id number] 22:17:00 Test Item Value Reference Range Interpretation Comments RPR (test code = NON-REACTIVE NON-REACTIVE 38917-1) RAC (test code = Performing Organization RAC) Information: Site ID: RGA Name: [facility] Address: [address] [place] [address] Director: Rajinder Grant [facility] C virus (HCV), quantitative [id number] 22:17:00 Test Item Value Reference Interpretation Comments Range HCV RNA, <15 NOT DETECTED NOT DETECTED quantitative PCR IU/mL (test code = 31361-2) HCV viral log <1.18 NOT DETECTED NOT DETECTED This bhupendra t was (test code = Log IU/mL performed using 79729-0) Real-Time Polym erase ChainReaction. Reportable Rang e: 15 IU/mL to 100,00 0,000 IU/mL(1.18 Log IU/mL to 8.00 Log IU/ mL). The analytical performance characteristics of thisassay have been determined by [employer]. Th e modifications h ave not been cleare d or approved bythe FDA. This assay has been validated pursu ant to the CLIA regulations and is used for clinic al purposes. For m ore information on this test, go to:http://educa tion. Bio[employer]ations /faq/EBA29s2(Th is link is being provided for informational/e ducat ional purposes only.) RAC (test code = Performing RAC) Organization Information: Site ID: IG [facility]: [facility] Address: [address] [place] [address] Director: Dr. Rajinder Grant [facility] C [id number] 22:17:00 Test Item Value Reference Interpretation Comments Range Hepatitis C Ab (test REACTIVE NON-REACTIVE A code = 17956-0) Signal/cutoff (test >11.00 See_Comment H Based o n this code = 24099-4) result, the sample will be testedf or [...] RAC) Organization Information: Site ID: RGA Name: [facility] Address: [address] [place] [address] Director: Rajinder Grant Lab Interpretation Abnormal (test code = 03452-1) [facility] type 1/2 combined Ab, [id number] 22:17:00 Test Item Value Reference Interpretation Comments Range HSV 1 IgM NEGATIVE (test code = 19585-4) HSV 2 IgM NEGATIVE REFERENCE RANG E: NEGATIVE HSV (test IgM is detectab le in serum code = from >90% of [facility] [address]-9) primary HSV inf ection. However, HSV Ig [...] performancechar acteristics have been deter mined by [facility].It has not been cleared or appr luis by FDA. This assay hasb een validated pursuant to the CLIA regulations and isused for clinical purpos es. RAC (test Performing code = Organization RAC) Information: Site ID: EZ Name: [facility], Address: [address] [place] [phone] Director: Crista Camacho MD,PhD,BARI [facility] CenterV 1/2 antigen/antibody, fourth generation, with reflexes 2022-02-11 22:17:00 Test Item Value Reference Range Interpretation Comments HIV NON-REACTIVE NON-REACTIVE HIV-1 antigen a nd antigen/ant HIV-1/HIV-2 ant ibodies ibody 4th were notdetecte d. There gen (test is no laborator y evidence code = of HIVinfection . PLEASE 01185-0) NOTE: This info rmation has been disclo [...] ad ditional information ple ase refer tohttp://educat ion.Face to Face Live/ faq/ZIC615 (This link is b eing provided for informational/e ducational purposes only.) The performance of this assay has not been clinicallyvalid ated in patients less t lagunas 2 years old. RAC (test Performing code = RAC) Organization Information: Site ID: RGA [facility]: [facility] Address: [address] [place] [address] Director: Rajinder Grant [facility] 1 and 2 specific Ab [id number] 22:17:00 Test Item Value Reference Interpretation Comments [...] additional information, pl ease refer to http://educatio n.[employer].com /faq/FA Q118 (This link is being provided for informational/e ducatio nal purposes on ly.) RAC (test code = Performing RAC) Organization Information: Site ID: IG [facility]: [facility] Address: [address] [place] [address] Director: Dr. Rajinder Grant Lab Interpretation Abnormal (test code = 81291-2) [facility] [id number] 22:17:00 Test Item Value Reference Range Interpretation Comments Hepatitis B surface NON-REACTIVE NON-REACTIVE Ag (test code = 5196-1) RAC (test code = RAC) Performing Organization Information: Site ID: RGA [facility]: [facility] Address: [address] [place] [address] Director: Rajinder Grant [facility] with reflex to [id number] 22:17:00 Test Item Value Reference Range Interpretation Comments RPR (test code = NON-REACTIVE NON-REACTIVE 26570-8) RAC (test code = Performing Organization RAC) Information: Site ID: RGA [facility]: [facility] Address: [address] [place] [address] Director: Rajinder Grant [facility] C virus (HCV), quantitative [id number] 22:17:00 Test Item Value Reference Interpretation Comments Range HCV RNA, <15 NOT DETECTED NOT DETECTED quantitative PCR IU/mL (test code = 56443-1) HCV viral log <1.18 NOT DETECTED NOT DETECTED This bhupendra t was (test code = Log IU/mL performed using 41562-3) Real-Time Polym erase ChainReaction. Reportable Rang e: 15 IU/mL to 100,00 0,000 IU/mL(1.18 Log IU/mL to 8.00 Log IU/ mL). The analytical performance characteristics of thisassay have been determined by [employer]. Th e modifications h ave not been cleare d or approved bythe FDA. This assay has been validated pursu ant to the CLIA regulations and is used for clinic al purposes. For m ore information on this test, go to:http://educa ContractRoomon. Bio[employer] /faq/HCX09z8(Th is link is being provided for informational/e ducat ional purposes only.) RAC (test code = Performing RAC) Organization Information: Site ID: IG [facility]: [facility] Address: [address] [place] [address] Director: Dr. Rajinder Grant [facility] C [id number] 22:17:00 Test Item Value Reference Interpretation Comments Range Hepatitis C Ab (test REACTIVE NON-REACTIVE A code = 80048-6) Signal/cutoff (test >11.00 <=1.00 H Based o n this code = 45769-0) result, the sample will be testedf or HCV RNA by a Nucleic Acid Amplification T est (NAAT)to determ ine if the patient has a current activeinfection . RAC (test code = Performing RAC) Organization Information: Site ID: RGA [facility] Address: [address] [place] [phone] Director: Rajinder Grant Lab Interpretation Abnormal (test code = 27512-2) [facility]2 combined Ab, [id number] 22:17:00 Test Item Value Reference Interpretation Comments Range HSV 1 IgM NEGATIVE (test code = 13228-8) HSV 2 IgM NEGATIVE REFERENCE RANG E: NEGATIVE HSV (test IgM is detectab le in serum code = from >90% of [facility] [address]-4) primary HSV inf ection. However, HSV Ig [...] performancechar acteristics have been deter mined by [facility].It has not been cleared or appr luis by FDA. This assay hasb een validated pursuant to the CLIA regulations and isused for clinical purpos es. RAC (test Performing code = Organization RAC) Information: Site ID: EZ Name: [facility], Address: [address] [place] [phone] Director: Crista Camacho MD,PhD,BARI [facility] CenterV 1/2 antigen/antibody, fourth generation, with reflexes 2022-02-11 22:17:00 Test Item Value Reference Range Interpretation Comments HIV NON-REACTIVE NON-REACTIVE HIV-1 antigen a nd antigen/ant HIV-1/HIV-2 ant ibodies ibody 4th were notdetecte d. There gen (test is no laborator y evidence code = of HIVinfection . PLEASE 98374-3) NOTE: This info rmation has been disclo [...] ad ditional information ple ase refer tohttp://educat ion.ContractRoom.Reduce Data/ faq/XWL847 (This link is b eing provided for informational/e ducational purposes only.) The performance of this assay has not been clinicallyvalid ated in patients less t lagunas 2 years old. RAC (test Performing code = RAC) Organization Information: Site ID: RGA [facility]: [facility] Address: [address] [place] [address] Director: Rajinder Grant [facility] 1 and 2 specific Ab [id number] 22:17:00 Test Item Value Reference Interpretation Comments [...] additional information, pl ease refer to http://educatio nChantalQues tDiagnostics.co m/faq/ DTN396 (This li nk is being provided for informational/e ducati onal purposes o nly.) RAC (test code = Performing RAC) Organization Information: Site ID: IG Name: [facility] Address: [address] [place] [address] Director: Dr. Rajinder Grant Lab Interpretation Abnormal (test code = 08057-0) [facility] B surface [id number] 22:17:00 Test Item Value Reference Range Interpretation Comments Hepatitis B surface NON-REACTIVE NON-REACTIVE Ag (test code = 5196-1) RAC (test code = RAC) Performing Organization Information: Site ID: RGA [facility]: [facility] Address: [address] [place] [address] Director: Rajinder Grant [facility] Austin[facility]PR with reflex to [id number] 22:17:00 Test Item Value Reference Range Interpretation Comments RPR (test code = NON-REACTIVE NON-REACTIVE 50660-6) RAC (test code = Performing Organization RAC) Information: Site ID: RGA [facility] Address: [address] [place] [phone] Director: Rajinder Grant [facility] C virus (HCV), quantitative [id number] 22:17:00 Test Item Value Reference Interpretation Comments Range HCV RNA, <15 NOT DETECTED NOT DETECTED quantitative PCR IU/mL (test code = 76009-7) HCV viral log <1.18 NOT DETECTED NOT DETECTED This bhupendra t was (test code = Log IU/mL performed using 46647-9) Real-Time Polym erase ChainReaction. Reportable Rang e: 15 IU/mL to 100,00 0,000 IU/mL(1.18 Log IU/mL to 8.00 Log IU/ mL). The analytical performance characteristics of thisassay have been determined by [employer]. Th e modifications h ave not been cleare d or approved bythe FDA. This assay has been validated pursu ant to the CLIA regulations and is used for clinic al purposes. For m ore information on this test, go to:http://educa ContractRoomon. [employer] /faq/CRD85m1( is link is being provided for informational/e ducat ional purposes only.) RAC (test code = Performing RAC) Organization Information: Site ID: IG [facility]: [facility] Address: [address] [place] [address] Director: Dr. Rajinder Grant [facility] C [id number] 22:17:00 Test Item Value Reference Interpretation Comments Range Hepatitis C Ab (test REACTIVE NON-REACTIVE A code = 39413-6) Signal/cutoff (test >11.00 <=1.00 H Based o n this code = 82296-0) result, the sample will be testedf or HCV RNA by a Nucleic Acid Amplification T est (NAAT)to determ ine if the patient has a current activeinfection . RAC (test code = Performing RAC) Organization Information: Site ID: RGA Name: [facility] Address: [address] [place] [address] Director: Rajinder Grant Lab Interpretation Abnormal (test code = 97034-1) [facility] type [facility]/2 combined Ab, [id number] 22:17:00 Test Item Value Reference Interpretation Comments Range HSV 1 IgM NEGATIVE (test code = 89464-0) HSV 2 IgM NEGATIVE REFERENCE RANG E: NEGATIVE HSV (test IgM is detectab le in serum code = from >90% [facility] [address]-5) primary HSV inf ection. However, HSV Ig [...] performancechar acteristics have been deter mined by [facility].It has not been cleared or appr luis by FDA. This assay hasb een validated pursuant to the CLIA regulations and isused for clinical purpos es. RAC (test Performing code = Organization RAC) Information: Site ID: EZ Name: [facility], Address: [address] [place] [address] Director: Crista Camacho MD,PhD,BARI [facility]HIV 1/2 antigen/antibody, fourth generation, with reflexes 2022-02-11 22:17:00 Test Item Value Reference Range Interpretation Comments HIV NON-REACTIVE NON-REACTIVE HIV-1 antigen a nd antigen/ant HIV-1/HIV-2 ant ibodies ibody 4th were notdetecte d. There gen (test is no laborator y evidence code = of HIVinfection . PLEASE 02891-6) NOTE: This info rmation has been disclo [...] ad ditional information ple ase refer tohttp://educat ion.[employer]Room.Reduce Data/ faq/XSI432 (This link is b eing provided for informational/e ducational purposes only.) The performance of this assay has not been clinicallyvalid ated in patients less t lagunas 2 years old. RAC (test Performing code = RAC) Organization Information: Site ID: RGA [facility] Address: [address] [place] [address] Director: Rajinder Grant [facility] AustinHS[facility] 1 and 2 specific Ab [id number] 22:17:00 Test Item Value Reference Interpretation Comments [...] ease refer to http://educatio n.Ques tDiagnostics.co m/faq/ LTM578 (This li nk is being provided for informational/e ducati onal purposes o nly.) RAC (test code = Performing RAC) Organization Information: Site ID: IG Name: [facility] Address: [address] [place] [address] Director: Dr. Rajinder Grant Lab Interpretation Abnormal (test code = 70407-6) [facility] [id number] 15:02:28 Test Item Value Reference Range Interpretation Comments Case number (test code = [id number]) Surgical pathology See link below for report (test code = PDF Lab Report 1008) Result status (test code This is Final Report = [id number]) for [id number] [facility] [id number] 15:02:28 Test Item Value Reference Range Interpretation Comments Case number (test code = [id number]) Surgical pathology See link below for report (test code = PDF Lab Report 2255) Result status (test code This is Final Report = [id number]) for [address] pathology [id number] 15:02:28 Test Item Value Reference Range Interpretation Comments Case number (test code = [id number]) Surgical pathology See link below for report (test code = PDF Lab Report 2255) Result status (test code This is Final Report = [id number]) for [address] pathology [id number] 15:02:28 Test Item Value Reference Range Interpretation Comments Case number (test code = [id number]) Surgical pathology See link below for report (test code = PDF Lab Report 2255) Result status (test code This is Final Report = [id number]) for [address] pathology [id number] 15:02:28 Test Item Value Reference Range Interpretation Comments Case number (test code = [id number]) Surgical pathology See link below for report (test code = PDF Lab Report 2255) Result status (test code This is Final Report = [id number]) for [address] pathology [id number] 15:02:28 Test Item Value Reference Range Interpretation Comments Case number (test code = [id number]) Surgical pathology See link below for report (test code = PDF Lab Report 2255) Result status (test code This is Final Report = [id number]) for [address] pathology [id number] 15:02:28 Test Item Value Reference Range Interpretation Comments Case number (test code = [id number]) Surgical pathology See link below for report (test code = PDF Lab Report 2255) Result status (test code This is Final Report = 1558901) for [address] pathology [id number] 15:02:28 Test Item Value Reference Range Interpretation Comments Case number (test code = [id number]) Surgical pathology See link below for report (test code = PDF Lab Report 2255) Result status (test code This is Final Report = [id number]) [address] [id number] 15:02:28 Test Item Value Reference Range Interpretation Comments Case number (test code = [id number]) Surgical pathology See link below for report (test code = PDF Lab Report 2255) Result status (test code This is Final Report = 3429492) [address] [id number] 15:02:28 Test Item Value Reference Range Interpretation Comments Case number (test code = [id number]) Surgical pathology See link below for report (test code = PDF Lab Report 2255) Result status (test code This is Final Report = 1970857) for [address] pathology [id number] 15:02:28 Test Item Value Reference Range Interpretation Comments Case number (test code = [id number]) Surgical pathology See link below for report (test code = PDF Lab Report 2255) Result status (test code This is Final Report = 2428937) [address] [id number] 15:02:28 Test Item Value Reference Range Interpretation Comments Case number (test code = [id number]) Surgical pathology See link below for report (test code = PDF Lab Report 2255) Result status (test code This is Final Report = 8365319) for [address] pathology [id number] 15:02:28 Test Item Value Reference Range Interpretation Comments Case number (test code = [id number]) Surgical pathology See link below for report (test code = PDF Lab Report 2255) Result status (test code This is Final Report = 9542851) [address] qualitative [id number] 22:09:28 Test Item Value Reference Interpretation Comments Range Interpretation (test Negative results do not code = 3843865) preclude COVID-19 infection and should not be used asthe sole basis for treatment or other patient management decisions. Negativeresults must be combined with clinical observations, patient history, andepidemiological information. COVID-19 qualitative Not-Detected Not-Detected RT-PCR result (test code = 61577-1) COVID-19 qualitative See link below for PDF Case Number: RT-PCR (test code = Lab Report [id number] [id number]) [facility] [id number] 22:09:28 Test Item Value Reference Interpretation Comments Range Interpretation (test Negative results do not code = 2633852) preclude COVID-19 infection and should not be used asthe sole basis for treatment or other patient management decisions. Negativeresults must be combined with clinical observations, patient history, andepidemiological information. COVID-19 qualitative Not-Detected Not-Detected RT-PCR result (test code = 18235-6) COVID-19 qualitative See link below for PDF Case Number: RT-PCR (test code = Lab Report [id number] 7070) [facility] [id number] 22:09:28 Test Item Value Reference Interpretation Comments Range Interpretation (test Negative results do not code = 6671214) preclude COVID-19 infection and should not be used asthe sole basis for treatment or other patient management decisions. Negativeresults must be combined with clinical observations, patient history, andepidemiological information. COVID-19 qualitative Not-Detected Not-Detected RT-PCR result (test code = 40759-0) COVID-19 qualitative See link below for PDF Case Number: RT-PCR (test code = Lab Report [id number] 7070) [facility] [id number] 22:09:28 Test Item Value Reference Interpretation Comments Range Interpretation (test Negative results do not code = 2648244) preclude COVID-19 infection and should not be used asthe sole basis for treatment or other patient management decisions. Negativeresults must be combined with clinical observations, patient history, andepidemiological information. COVID-19 qualitative Not-Detected Not-Detected RT-PCR result (test code = 83168-8) COVID-19 qualitative See link below for PDF Case Number: RT-PCR (test code = Lab Report [id number] 7070) [facility] [id number] 22:09:28 Test Item Value Reference Interpretation Comments Range Interpretation (test Negative results do not code = 9818710) preclude COVID-19 infection and should not be used asthe sole basis for treatment or other patient management decisions. Negativeresults must be combined with clinical observations, patient history, andepidemiological information. COVID-19 qualitative Not-Detected Not-Detected RT-PCR result (test code = 11446-7) COVID-19 qualitative See link below for PDF Case Number: RT-PCR (test code = Lab Report [id number] 7070) [facility] [id number] 22:09:28 Test Item Value Reference Interpretation Comments Range Interpretation (test Negative results do not code = 6591853) preclude COVID-19 infection and should not be used asthe sole basis for treatment or other patient management decisions. Negativeresults must be combined with clinical observations, patient history, andepidemiological information. COVID-19 qualitative Not-Detected Not-Detected RT-PCR result (test code = 47439-4) COVID-19 qualitative See link below for PDF Case Number: RT-PCR (test code = Lab Report [id number] 7070) [facility] [id number] 22:09:28 Test Item Value Reference Interpretation Comments Range Interpretation (test Negative results do not code = 8172673) preclude COVID-19 infection and should not be used asthe sole basis for treatment or other patient management decisions. Negativeresults must be combined with clinical observations, patient history, andepidemiological information. COVID-19 qualitative Not-Detected Not-Detected RT-PCR result (test code = 03022-7) COVID-19 qualitative See link below for PDF Case Number: RT-PCR (test code = Lab Report [id number] 7070) [facility] [id number] 22:09:28 Test Item Value Reference Interpretation Comments Range Interpretation (test Negative results do not code = 1308611) preclude COVID-19 infection and should not be used asthe sole basis for treatment or other patient management decisions. Negativeresults must be combined with clinical observations, patient history, andepidemiological information. COVID-19 qualitative Not-Detected Not-Detected RT-PCR result (test code = 34681-5) COVID-19 qualitative See link below for PDF Case Number: RT-PCR PDF (test Lab Report [id number] 1 code = 7070) [facility] [id number] 22:09:28 Test Item Value Reference Interpretation Comments Range Interpretation (test Negative results do not code = 0594553) preclude COVID-19 infection and should not be used asthe sole basis for treatment or other patient management decisions. Negativeresults must be combined with clinical observations, patient history, andepidemiological information. COVID-19 qualitative Not-Detected Not-Detected RT-PCR result (test code = 29500-3) COVID-19 qualitative See link below for PDF Case Number: RT-PCR PDF (test Lab Report [id number] 1 code = 7070) [facility] [id number] 22:09:28 Test Item Value Reference Interpretation Comments Range Interpretation (test Negative results do not code = 6724497) preclude COVID-19 infection and should not be used asthe sole basis for treatment or other patient management decisions. Negativeresults must be combined with clinical observations, patient history, andepidemiological information. COVID-19 qualitative Not-Detected Not-Detected RT-PCR result (test code = 50840-3) COVID-19 qualitative See link below for PDF Case Number: RT-PCR PDF (test Lab Report [id number] 1 code = 7070) [facility] [id number] 22:09:28 Test Item Value Reference Interpretation Comments Range Interpretation (test Negative results do not code = 9516739) preclude COVID-19 infection and should not be used asthe sole basis for treatment or other patient management decisions. Negativeresults must be combined with clinical observations, patient history, andepidemiological information. COVID-19 qualitative Not-Detected Not-Detected RT-PCR result (test code = 97944-3) COVID-19 qualitative See link below for PDF Case Number: RT-PCR PDF (test Lab Report [id number] 1 code = 7070) [facility] [id number] 22:09:28 Test Item Value Reference Interpretation Comments Range Interpretation (test Negative results do not code = 6022738) preclude COVID-19 infection and should not be used asthe sole basis for treatment or other patient management decisions. Negativeresults must be combined with clinical observations, patient history, andepidemiological information. COVID-19 qualitative Not-Detected Not-Detected RT-PCR result (test code = 31921-3) COVID-19 qualitative See link below for PDF Case Number: RT-PCR PDF (test Lab Report [id number] 1 code = 7070) [facility] [id number] 22:09:28 Test Item Value Reference Interpretation Comments Range Interpretation (test Negative results do not code = 3231489) preclude COVID-19 infection and should not be used asthe sole basis for treatment or other patient management decisions. Negativeresults must be combined with clinical observations, patient history, andepidemiological information. COVID-19 qualitative Not-Detected Not-Detected RT-PCR result (test code = 16694-6) COVID-19 qualitative See link below for PDF Case Number: RT-PCR PDF (test Lab Report [id number] 1 code = 7070) [facility] [Presence] in Respiratory specimen by LATESHA with probe [id number] 17:09:28 Test Item Value Reference Range Interpretation Comments SARS-CoV-2 (COVID-19) RNA Not detected [Presence] in Respiratory specimen by LATESHA with probe detection (test code = 24258-5) Whether patient is employed in a Unknown healthcare setting (test code = 72068-6) Whether the patient has symptoms Unknown related to condition of interest (test code = 07873-2) Whether the patient was Unknown hospitalized for condition of interest (test code = 38600-5) Whether the patient was admitted Unknown to intensive care unit (ICU) for condition of interest (test code = 87827-3) Whether patient resides in a Unknown congregate care setting (test code = 20931-0) status (test code = Unknown 94091-4) Date and time of symptom onset Unknown (test code = 43389-7) [facility] AND HPV mRNA [id number] 20:30:00 Test Item Value Reference Interpretation Comments Range Clinical information None gi niurka (test code = 81969-2) Date of last NONE GIVEN menstrual period (test code = 8665-2) Prev. pap: (test code NONE G IVEN = 73274-5) Prev. bx: (test code NONE GI NIURKA = 77184-7) Source (test code = None giv en 68503-0) Statement of adequacy Satisf actory for (test code = 77952-6) evalua tion.Endocervi cony/transformat ion zone componentpresen t.Age and/or menstrua l status not prov ided Interpretation/result Negati ve for : (test code = intraepitheli al 34097-8) lesion or malignancy. Comment (test code = This Pa p test has ) been evaluated with [employer] technology. Associate Marketing Manager DJL, CT ( CP)CT (test code = 38627-6) screen ing location: [place] [address] [address] [facility] [address] Comment (test code = EXPLANA TORY NOTE: 9001530) The Pap is a screening test for [...] Detected Not Detected Methodo logy: code = 95356-7) Transcriptio n-Mediat ed Amplificatio n This assay [...] For additional information, pl ease refer tohttp://educat ion.Kamicat/ faq/ZUK147h7(Th is link if provide d for information/edu catio nal purposes on ly.) JACEK (test code = JACEK) Performing Organization Information: Site ID: IG Name: [facility] Address: [address] [place] [phone] Director: Dr. aRjinder Grant Site ID: RGA [facility]: [facility] Address: [address] [place] [address] Director: Rajinder Grant [facility] RehabilitationTHINPREP TIS AND HPV mRNA [id number] 20:30:00 Test Item Value Reference Interpretation Comments Range Clinical information None gi niurka (test code = 51475-7) Date of last NONE GIVEN menstrual period (test code = 8665-2) Prev. pap: (test code NONE G IVEN = 48185-1) Prev. bx: (test code NONE GI NIURKA = 09771-1) Source (test code = None giv en ) Statement of adequacy Satisf actory for (test code = 16608-9) evalua tion.Endocervi cony/transformat ion zone componentpresen t.Age and/or menstrua l status not prov ided Interpretation/result Negati ve for : (test code = intraepitheli al 56315-3) lesion or malignancy. Comment (test code = This Pa p test has ) been evaluated with When You Wish[employer] d technology. Associate Marketing Manager NATO, CT ( CP)CT (test code = 56111-3) screen ing location: [address], [place] [address] Comment (test code = EXPLANA TORY NOTE: 2065194) The Pap is a screening test for [...] Detected Not Detected Methodo logy: code = 96568-4) Transcriptio n-Mediat ed Amplificatio n This assay [...] For additional information, pl ease refer tohttp://educat ion.Montnets .Red[employer]/ faq/OHK204w0(Th is link if provide d for information/edu catio nal purposes on ly.) RAC (test code = RAC) Performing Organization Information: Site ID: IG Name: [facility] Address: [address] [place] [phone] Director: Dr. Rajinder Grant Site ID: RGA Name: [facility] Address: [address] [place] [phone] Director: Rajinder Grant [facility] AND HPV mRNA [id number] 20:30:00 Test Item Value Reference Interpretation Comments Range Clinical information None gi niurka (test code = 81645-0) Date of last NONE GIVEN menstrual period (test code = 8665-2) Prev. pap: (test code NONE G IVEN = 85827-8) Prev. bx: (test code NONE GI NIURKA = 74485-7) Source (test code = [place] giv en 16045-6) Statement of adequacy Satisf actory for (test code = 44999-9) evalua tion.Endocervi cony/transformat ion zone componentpresen t.Age and/or menstrua l status not prov ided Interpretation/result Negati ve for : (test code = intraepitheli al 24188-4) lesion or malignancy. Comment (test code = This Pa p test has ) been evaluated with computerassiste d technology. Associate Marketing Manager DJL, CT ( CP)CT (test code = 21082-4) screen ing location: [facility] [address] [place] [address], [place] [address] Comment (test code = EXPLANA TORY NOTE: 6739090) The Pap is a screening test for [...] Detected Not Detected Methodo logy: code = 78634-9) Transcriptio n-Mediat ed Amplificatio n This assay [...] For additional information, pl ease refer tohttp://educat ion.Kamicat/ faq/APZ163o0(Th is link if provide d for information/edu catio nal purposes on ly.) JACEK (test code = JACEK) Performing Organization Information: Site ID: IG Name: [facility] Address: [address] [place] [phone] Director: Dr. Rajinder Grant Site ID: RGA Name: [facility] Address: [address] [place] [phone] Director: Rajinder Grant [facility] AND HPV mRNA [id number] 20:30:00 Test Item Value Reference Interpretation Comments Range Clinical information None gi niurka (test code = 70721-5) Date of last NONE GIVEN menstrual period (test code = 8665-2) Prev. pap: (test code NONE G IVEN = 45606-3) Prev. bx: (test code NONE GI NIURKA = 13370-9) Source (test code = None giv en ) Statement of adequacy Satisf actory for (test code = ) evalua tion.Endocervi cony/transformat ion zone componentpresen t.Age and/or menstrua l status not prov ided Interpretation/result Negati ve for : (test code = intraepitheli al 49485-7) lesion or malignancy. Comment (test code = This Pa p test has ) been evaluated with When [employer] d technology. Associate Marketing Manager NATO, CT ( CP)CT (test code = 53735-5) screen ing location: [address], [place] [address] Comment (test code = MARYURIA NONA NOTE: 0091608) The Pap is a screening test for [...] Detected Not Detected Methodo logy: code = 67285-1) Transcriptio n-Mediat ed Amplificatio n This assay [...] For additional information, pl ease refer tohttp://educat ion.Montnets .Reduce Data/ faq/DGS421o3(Th is link if provide d for information/edu catio nal purposes on ly.) RAC (test code = RAC) Performing Organization Information: Site ID: IG Name: [facility] Address: [address] [place] [address] Director: Dr. Rajinder Grant Site ID: RGA Name: [facility] Address: [address] [place] [address] Director: Rajinder Grant [facility] TIS AND HPV mRNA [id number] 20:30:00 Test Item Value Reference Interpretation Comments Range Clinical information None gi niurka (test code = 50733-1) Date of last NONE GIVEN menstrual period (test code = 8665-2) Prev. pap: (test code NONE G IVEN = 44381-9) Prev. bx: (test code NONE GI NIURKA = 10371-4) Source (test code = None giv en 24603-8) Statement of adequacy Satisf actory for (test code = 90459-8) evalua tion.Endocervi cony/transformat ion zone componentpresen t.Age and/or menstrua l status not prov ided Interpretation/result Negati ve for : (test code = intraepitheli al 05501-2) lesion or malignancy. Comment (test code = This Pa p test has ) been evaluated with [employer] technology. Associate Marketing Manager ISAELL, CT ( CP)CT (test code = 01712-3) screen ing location: [place] [address] [address], [facility] [address] Comment (test code = EXPLANA TORY NOTE: 7372183) The Pap is a screening test for [...] Detected Not Detected Methodo logy: code = 85856-7) Transcriptio n-Mediat ed Amplificatio n This assay [...] For additional information, pl ease refer tohttp://educat ion.Kamicat/ faq/CMI178k1(Th is link if provide d for information/edu catio nal purposes on ly.) JACEK (test code = RAC) Performing Organization Information: Site ID: IG Name: [facility] Address: [address] [place] [phone] Director: Dr. Rajinder Grant Site ID: RGA [facility] Address: [address] [place] [address] Director: Rajinder Grant [facility] AND HPV mRNA [id number] 20:30:00 Test Item Value Reference Interpretation Comments Range Clinical information None gi niurka (test code = 53970-7) Date of last NONE GIVEN menstrual period (test code = 8665-2) Prev. pap: (test code NONE G IVEN = 41956-2) Prev. bx: (test code NONE GI NIURKA = 44455-7) Source (test code = None giv en ) Statement of adequacy Satisf actory for (test code = 34245-9) evalua tion.Endocervi cony/transformat ion zone componentpresen t.Age and/or menstrua l status not prov ided Interpretation/result Negati ve for : (test code = intraepitheli al 05077-1) lesion or malignancy. Comment (test code = This Pa p test has ) been evaluated with [employer] technology. Associate Marketing Manager NATO CT ( CP)CT (test code = 05186-1) screen ing location: [address], [place] [address] Comment (test code = EXPLANA TORY NOTE: 8495441) The Pap is a screening test for [...] Detected Not Detected Methodo logy: code = 67964-3) Transcriptio n-Mediat ed Amplificatio n This assay [...] For additional information, pl ease refer tohttp://educat ion.Kamicat/ faq/EOA286i1(Th is link if provide d for information/edu catio nal purposes on ly.) RAC (test code = RAC) Performing Organization Information: Site ID: IG Name: [facility] Address: [address] [place] [address] Director: Dr. Rajinder Grant Site ID: RGA Name: [facility] Address: [address] [place] [address] Director: Rajinder Grant [facility] TIS AND HPV mRNA [id number] 20:30:00 Test Item Value Reference Interpretation Comments Range Clinical information None gi niurka (test code = 42467-2) Date of last NONE GIVEN menstrual period (test code = 8665-2) Prev. pap: (test code NONE G IVEN = 88250-2) Prev. bx: (test code NONE GI NIURKA = 42768-6) Source (test code = [place] 95088-5) Statement of adequacy Satisf actory for (test code = 00438-0) evalua tion.Endocervi cony/transformat ion zone componentpresen t.Age and/or menstrua l status not prov ided Interpretation/result Negati ve for : (test code = intraepitheli al 48954-0) lesion or malignancy. Comment (test code = This Pa p test has ) been evaluated with computerassiste d technology. Associate Marketing Manager DJL, CT ( CP)CT (test code = 39439-4) screen ing location: [facility] [address] [place] [address], [place] [address] Comment (test code = EXPLANA TORY NOTE: 1064470) The Pap is a screening test for [...] Detected Not Detected Methodo logy: code = 57648-3) Transcriptio n-Mediat ed Amplificatio n This assay [...] For additional information, pl ease refer tohttp://educat ion.Kamicat/ faq/ISJ155i4(Th is link if provide d for information/edu catio nal purposes on ly.) JACEK (test code = JACEK) Performing Organization Information: Site ID: IG Name: [facility] Address: [address] [place] [address] Director: Dr. Rajinder Grant Site ID: RGA Name: [facility] Address: [address] [place] [address] Director: Rajinder Grant [facility] AND HPV mRNA [id number] 20:30:00 Test Item Value Reference Interpretation Comments Range Clinical information None gi niurka (test code = 39878-1) Date of last NONE GIVEN menstrual period (test code = 8665-2) Prev. pap: (test code NONE G IVEN = 86564-6) Prev. bx: (test code NONE GI NIURKA = 06592-3) Source (test code = None giv en ) Statement of adequacy Satisf actory for (test code = ) evalua tion.Endocervi cony/transformat ion zone componentpresen t.Age and/or menstrua l status not prov ided Interpretation/result Negati ve for : (test code = intraepitheli al 02943-7) lesion or malignancy. Comment (test code = This Pa p test has ) been evaluated with computerassiste d technology. Associate Marketing Manager NATO CT ( CP)CT (test code = 53337-6) screen ing location: [address], [place] [address] 2 Comment (test code = VIRGILIO CASTELLANO NOTE: 9018429) The Pap is a screening test for [...] Detected Not Detected Methodo logy: code = 94180-0) Transcriptio n-Mediat ed Amplificatio n This assay [...] For additional information, pl ease refer tohttp://educat ion.Montnets .Reduce Data/ faq/DTJ662e3(Th is link if provide d for information/edu catio nal purposes on ly.) RAC (test code = RAC) Performing Organization Information: Site ID: IG Name: [facility] Address: [address] [place] [address] Director: Dr. Rajinder Grant Site ID: RGA Name: [facility] Address: [address] [place] [address] Director: Rajinder Grant [facility]IN[facility] TIS AND HPV mRNA [id number]/[id number] 20:30:00 Test Item Value Reference Interpretation Comments Range Clinical information None gi niurka (test code = 56123-7) Date of last NONE GIVEN menstrual period (test code = 8665-2) Prev. pap: (test code NONE G IVEN = 94285-5) Prev. bx: (test code NONE GI NIURKA = 01572-1) Source (test code = None giv en 11629-1) Statement of adequacy Satisf actory for (test code = 38907-9) evalua tion.Endocervi cony/transformat ion zone componentpresen t.Age and/or menstrua l status not prov ided Interpretation/result Negati ve for : (test code = intraepitheli al 14339-5) lesion or malignancy. Comment (test code = This Pa p test has ) been evaluated with MedVentive d technology. Associate Marketing Manager DJL, CT ( CP)CT (test code = 12526-8) screen ing location: [address], [place] [address] Comment (test code = EXPLANA TORY NOTE: 9841042) The Pap is a screening test for [...] Detected Not Detected Methodo logy: code = 61972-8) Transcriptio n-Mediat ed Amplificatio n This assay [...] For additional information, pl ease refer tohttp://educat ion.Kamicat/ faq/EOM842y9(Th is link if provide d for information/edu catio nal purposes on ly.) JACEK (test code = RAC) Performing Organization Information: Site ID: IG Name: [facility] Address: [address] [place] [address] Director: Dr. Rajinder Grant Site ID: RGA Name: [facility] Address: [address] [place] [address] Director: Rajinder Grant [facility] TIS AND HPV mRNA E6/[id number] 20:30:00 Test Item Value Reference Interpretation Comments Range Clinical information None gi niurka (test code = 31689-4) Date of last NONE GIVEN menstrual period (test code = 8665-2) Prev. pap: (test code NONE G IVEN = 26241-9) Prev. bx: (test code NONE GI NIURKA = 72240-4) Source (test code = None giv en ) Statement of adequacy Satisf actory for (test code = 19197-6) evalua tion.Endocervi cony/transformat ion zone componentpresen t.Age and/or menstrua l status not prov ided Interpretation/result Negati ve for : (test code = intraepitheli al 58628-7) lesion or malignancy. Comment (test code = This Pa p test has ) been evaluated with Adyoulikee d technology. Associate Marketing Manager NATO, CT ( CP)CT (test code = 19748-9) screen ing location: [address], [place] [address] Comment (test code = EXPLANA TORY NOTE: 9682002) The Pap is a screening test for [...] Detected Not Detected Methodo logy: code = 59969-5) Transcriptio n-Mediat ed Amplificatio n This assay [...] For additional information, pl ease refer tohttp://educat ion.Kamicat/ faq/FBB752i5(Th is link if provide d for information/edu catio nal purposes on ly.) RAC (test code = RAC) Performing Organization Information: Site ID: IG Name: [facility] Address: [address] [place] [address] Director: Dr. Rajinder Grant Site ID: RGA Name: [facility] Address: [address] [place] [address] Director: Rajinder Grant [facility]IN[facility] TIS AND HPV mRNA [id number]/[id number] 20:30:00 Test Item Value Reference Interpretation Comments Range Clinical information None gi niurka (test code = 76955-3) Date of last NONE GIVEN menstrual period (test code = 8665-2) Prev. pap: (test code NONE G IVEN = 37100-6) Prev. bx: (test code NONE GI NIURKA = 02099-8) Source (test code = None giv en 41197-9) Statement of adequacy Satisf actory for (test code = 52182-3) evalua tion.Endocervi cony/transformat ion zone componentpresen t.Age and/or menstrua l status not prov ided Interpretation/result Negati ve for : (test code = intraepitheli al 20575-9) lesion or malignancy. Comment (test code = This Pa p test has ) been evaluated with computerassiste d technology. Associate Marketing Manager DJL, CT ( CP)CT (test code = 50537-5) screen ing location: [facility] [address] [facility], [place] [address] 2 Comment (test code = EXPLANA TORY NOTE: 7048622) The Pap is a screening test for [...] Detected Not Detected Methodo logy: code = 68357-8) Transcriptio n-Mediat ed Amplificatio n This assay [...] For additional information, pl ease refer tohttp://educat ionAlerts/ faq/YOE293n8(Th is link if provide d for information/edu catio nal purposes on ly.) JACEK (test code = JACEK) Performing Organization Information: Site ID: IG Name: [facility] Address: [address] [place] [address] Director: Dr. Rajinder Grant Site ID: RGA [facility]: [facility] Address: [address] [place] [address] Director: Rajinder Grant [facility]IN[facility] TIS AND HPV mRNA [id number]/[id number] 20:30:00 Test Item Value Reference Interpretation Comments Range Clinical information None gi niurka (test code = 67978-4) Date of last NONE GIVEN menstrual period (test code = 8665-2) Prev. pap: (test code NONE G IVEN = 01708-3) Prev. bx: (test code NONE GI NIURKA = 75609-4) Source (test code = None giv en ) Statement of adequacy Satisf actory for (test code = 73064-4) evalua tion.Endocervi cony/transformat ion zone componentpresen t.Age and/or menstrua l status not prov ided Interpretation/result Negati ve for : (test code = intraepitheli al 27302-9) lesion or malignancy. Comment (test code = This Pa p test has ) been evaluated with computerassiste d technology. Associate Marketing Manager NATO, CT ( CP)CT (test code = 96756-4) screen ing location: [address], [place] [address] Comment (test code = MARYURIA NONA NOTE: 0430339) The Pap is a screening test for [...] Detected Not Detected Methodo logy: code = 58183-3) Transcriptio n-Mediat ed Amplificatio n This assay [...] For additional information, pl ease refer tohttp://educat ion.Montnets .Reduce Data/ faq/VTK276o9(Th is link if provide d for information/edu catio nal purposes on ly.) RAC (test code = RAC) Performing Organization Information: Site ID: IG [facility]: [facility] Address: [address] [place] [address] Director: Dr. Rajinder Grant Site ID: RGA [facility]: [facility] Address: [address] [place] [address] Director: Rajinder Grant [facility] AustinTHINPREP TIS AND HPV mRNA E6/[id number] 20:30:00 Test Item Value Reference Interpretation Comments Range Clinical information None gi niurka (test code = 02184-3) Date of last NONE GIVEN menstrual period (test code = 8665-2) Prev. pap: (test code NONE G IVEN = 57094-0) Prev. bx: (test code NONE GI NIURKA = 39632-3) Source (test code = None giv en 52963-7) Statement of adequacy Satisf actory for (test code = 50489-8) evalua tion.Endocervi cony/transformat ion zone componentpresen t.Age and/or menstrua l status not prov ided Interpretation/result Negati ve for : (test code = intraepitheli al 08485-9) lesion or malignancy. Comment (test code = This Pa p test has ) been evaluated with When You WishistKardium d technology. Associate Marketing Manager NATO, CT ( CP)CT (test code = 82513-6) screen ing location: [address], [place] [address] 2 Comment (test code = EXPLANA TORY NOTE: 9877191) The Pap is a screening test for [...] Detected Not Detected Methodo logy: code = 79642-8) Transcriptio n-Mediat ed Amplificatio n This assay [...] For additional information, pl ease refer tohttp://educat ion.Kamicat/ faq/OIX255k7(Th is link if provide d for information/edu catio nal purposes on ly.) JACEK (test code = RAC) Performing Organization Information: Site ID: IG Name: [facility] Address: [address] [place] [address] Director: Dr. Rajinder Grant Site ID: RGA Name: [facility] Address: [address] [place] [address] Director: Rajinder Grant [address]2022-09-01 18:14:37 Test Item Value Reference Range Interpretation Comments Ventricular rate (test code = 253) Atrial rate (test code = 255) IN interval (test code = 266) QRSD interval [...] of 07-NOV-2021 12:57,-No significant change was found- [address]2022-09-01 18:14:37 Test Item Value Reference Range Interpretation Comments Ventricular rate (test code = 253) Atrial rate (test code = 255) IN interval (test code = 266) QRSD interval [...] of 07-NOV-2021 12:57,-No significant change was found- [address]2022-09-01 18:14:37 Test Item Value Reference Range Interpretation Comments Ventricular rate (test code = 253) Atrial rate (test code = 255) IN interval (test code = 266) QRSD interval [...] of 07-NOV-2021 12:57,-No significant change was found- [facility] [Presence] in Respiratory specimen by LATESHA with probe [id number] 21:57:49 Test Item Value Reference Range Interpretation Comments SARS-CoV-2 (COVID-19) RNA [Presence] Detected in Respiratory specimen by LATESHA with probe detection (test code = 16500-0) Whether patient is employed in a Unknown healthcare setting (test code = 77466-4) Whether the patient has symptoms Unknown related to condition of interest (test code = 22867-3) Whether the patient was hospitalized Unknown for condition of interest (test code = 12733-2) Whether the patient was admitted to Unknown intensive care unit (ICU) for condition of interest (test code = 39752-7) Whether patient resides in a Unknown congregate care setting (test code = 17168-0) status (test code = Unknown 10337-2) Date and time of symptom onset (test Unknown code = 70041-9) [facility]ENTERHepatic function [id number] 18:40:00 Test Item Value Reference Range Interpretation Comments Protein (test code 6.6 g/dL 6.1-8.1 = 2885-2) Albumin, S (test 4.1 g/dL 3.6-5.1 code = 1751-7) Globulin, total See_Comment [Automated (test code = message] The 47634-7) system which generated this result transmitted reference range : 1.9 - 3.7 g/dL (calc). The reference range was not used to interpret this result as normal/abnormal . Albumin/globulin See_Comment [Automated ratio (test code = message] The 7059-0) system which generated this result transmitted reference [...] RAC) Organization Information: Site ID: RGA [facility] Address: [address] [place] [address] Director: [facility]Hep[facility] function [id number] 18:40:00 Test Item Value Reference Range Interpretation [...] RAC) Organization Information: Site ID: RGA [facility]: [facility] Address: [address] [place] [address] Director: Rajinder Girma MedinaWolf PointDetwiler Memorial HospitalHepatic function [id number] 18:40:00 Test Item Value Reference Range Interpretation [...] 10-08) WILDA (test code = FASTING: UNKNOWN WILDA) RAC (test code = Performing RAC) Organization Information: Site ID: BEBA [facility]: [facility] Address: [address] [place] [address] Director: Rajinder Girma WardRudyWVUMedicine [facility] HospitalHepatic function [id number] 18:40:00 Test Item Value Reference Range Interpretation [...] RAC) Organization Information: Site ID: BEBA [facility]: [facility] Address: [address] [place] [address] Director: Rajinder LamarNationwide Children's HospitalHepatic function [id number] 18:40:00 Test Item Value Reference Range Interpretation [...] RAC) Organization Information: Site ID: RGA [facility]: [facility] Address: [address] [place] [address] Director: Rajinder LamarNationwide Children's HospitalHepatic function [id number] 18:40:00 Test Item Value Reference Range Interpretation [...] RAC) Organization Information: Site ID: RGA [facility]: [facility] Address: [address] [place] [address] Director: Rajinder WardWVUMedicine [facility] HospitalHepatic function [id number] 18:40:00 Test Item Value Reference Range Interpretation [...] RAC) Organization Information: Site ID: RGA [facility]: [facility] Address: [address] [place] [address] Director: [facility] RudyDetwiler Memorial HospitalHepatic function [id number] 18:40:00 Test Item Value Reference Range Interpretation [...] RAC) Organization Information: Site ID: RGA [facility]: [facility] Address: [address] [place] [address] Director: [place] Girma [facility] HospitalHepatic function [id number] 18:40:00 Test Item Value Reference Range Interpretation [...] RAC) Organization Information: Site ID: RGA [facility]: [facility] Address: [address] [place] [address] Director: [facility] HospitalHepatic function [id number] 18:40:00 Test Item Value Reference Range Interpretation [...] RAC) Organization Information: Site ID: RGA [facility]: [facility] Address: [address] [place] [address] Director: Rajinder Girma [facility] HospitalHepatic function [id number] 18:40:00 Test Item Value Reference Range Interpretation [...] RAC) Organization Information: Site ID: BEBA [facility]: [facility] Address: [address] [place] [address] Director: Rajinder Grant [facility] ([facility]) RNA [Presence] in Respiratory specimen by LATESHA with probe [id number] 20:46:09 Test Item Value Reference Range Interpretation Comments SARS-CoV-2 (COVID-19) RNA Not detected [Presence] in Respiratory specimen by LATESHA with probe detection (test code = 91942-9) Whether patient is employed in a Unknown healthcare setting (test code = 55857-1) Whether the patient has symptoms Unknown related to condition of interest (test code = 43360-5) Whether the patient was Unknown hospitalized for condition of interest (test code = 34648-4) Whether the patient was admitted Unknown to intensive care unit (ICU) for condition of interest (test code = 35866-8) Whether patient resides in a Unknown congregate care setting (test code = 43522-0) status (test code = Unknown 09990-7) Date and time of symptom onset Unknown (test code = 84881-4) [facility] Center[facility] stimulating [id number] 05:23:00 Test Item Value Reference Range Interpretation Comments TSH (test code mIU/L Reference Ra nge > = 3016-3) or = 20 Years 0.40-4.50 Range s First trimester 0.26-2.66 Secon d trimester 0.55-2.73 Third trimester 0.43-2.91 RAC (test code Performing = RAC) Organization Information: Site ID: RGA [facility]: [facility] Address: [address] [place] [address] Director: Rajinder KiddUT Health North Campus TylerThyroid stimulating [id number] 05:23:00 Test Item Value Reference Range Interpretation Comments TSH (test code mIU/L Reference Ra nge > = 3016-3) or = 20 Years 0.40-4.50 Range s First trimester 0.26-2.66 Secon d trimester 0.55-2.73 Third trimester 0.43-2.91 RAC (test code Performing = RAC) Organization Information: Site ID: RGA [facility]: [facility] Address: [address] [place] [address] Director: Rajinder Grant [facility]2022-06-11 05:23:00 Test Item Value Reference Range Interpretation Comments TSH (test code mIU/L Reference Ra nge > = 3016-3) or = 20 Years 0.40-4.50 Range s First trimester 0.26-2.66 Secon d trimester 0.55-2.73 Third trimester 0.43-2.91 RAC (test code Performing = RAC) Organization Information: Site ID: A [facility]: [facility] Address: [address] [place] [address] Director: Rajinder KiddSharp [facility]2022-06-11 05:23:00 Test Item Value Reference Range Interpretation Comments TSH (test code mIU/L Reference Ra nge > = 3016-3) or = 20 Years 0.40-4.50 Range s First trimester 0.26-2.66 Secon d trimester 0.55-2.73 Third trimester 0.43-2.91 RAC (test code Performing = RAC) Organization Information: Site ID: RGA [facility]: [facility] Address: [address] [place] [address] Director: Rajinder KiddSharp [facility]2022-06-11 05:23:00 Test Item Value Reference Range Interpretation Comments TSH (test code mIU/L Reference Ra nge > = 3016-3) or = 20 Years 0.40-4.50 Range s First trimester 0.26-2.66 Secon d trimester 0.55-2.73 Third trimester 0.43-2.91 RAC (test code Performing = RAC) Organization Information: Site ID: RGA [facility]: [facility] Address: [address] [place] [address] Director: Rajinder KiddSharp [facility]2022-06-11 05:23:00 Test Item Value Reference Range Interpretation Comments TSH (test code mIU/L Reference Ra nge > = 3016-3) or = 20 Years 0.40-4.50 Range s First trimester 0.26-2.66 Secon d trimester 0.55-2.73 Third trimester 0.43-2.91 RAC (test code Performing = RAC) Organization Information: Site ID: RGA [facility]: [facility] Address: [address] [place] [address] Director: Rajinder Grant [facility] [id number] 05:23:00 Test Item Value Reference Range Interpretation Comments TSH (test code 1.97 mIU/L Reference Ra nge > = 3016-3) or = 20 Years 0.40-4.50 Range s First trimester 0.26-2.66 Secon d trimester 0.55-2.73 Third trimester 0.43-2.91 RAC (test code Performing = RAC) Organization Information: Site ID: A Name: [facility] Address: [address] [place] [address] Director: Rajinder KiddSt[facility] [id number] 05:23:00 Test Item Value Reference Range Interpretation Comments TSH (test code 1.97 mIU/L Reference Ra nge > = 3016-3) or = 20 Years 0.40-4.50 Range s First trimester 0.26-2.66 Secon d trimester 0.55-2.73 Third trimester 0.43-2.91 RAC (test code Performing = RAC) Organization Information: Site ID: [facility] Name: [facility] Address: [address] [place], [place] [address] Director: Rajinder Grant [facility] [id number] 05:23:00 Test Item Value Reference Range Interpretation Comments TSH (test code 1.97 mIU/L Reference Ra nge > = 3016-3) or = 20 Years 0.40-4.50 Range s First trimester 0.26-2.66 Secon d trimester 0.55-2.73 Third trimester 0.43-2.91 RAC (test code Performing = RAC) Organization Information: Site ID: RGA Name: [facility] Address: [address] [place] [address] Director: [facility] HospitalThyroid stimulating [id number] 05:23:00 Test Item Value Reference Range Interpretation Comments TSH (test code 1.97 mIU/L Reference Ra nge > = 3016-3) or = 20 Years 0.40-4.50 Range s First trimester 0.26-2.66 Secon d trimester 0.55-2.73 Third trimester 0.43-2.91 RAC (test code Performing = RAC) Organization Information: Site ID: KATERINA Name: [facility] Address: [address] [place] [address] Director: [facility] HospitalUA RFLX MICR CULT IF [id number] 18:48:00 Test Item Value Reference Range Interpretation [...] LACT) 0.7 mmol/L 0.7-2.0 N LIVER FUNCTION [id number] 15:14:00 Test Item Value Reference Range Interpretation [...] U/L 38-126 N (test code = ALKP) [id number] 15:14:00 Test Item Value Reference Range Interpretation [...] ~~~~~~~~~~~~ ~~~~~~~~~~~~~~~ ~~~~~~~~~~~~ ~~~~~~~~~~~~~~~ ~ BASIC METABOLIC [id number] 15:14:00 Test Item Value Reference Range Interpretation [...] = HEMINDEX) - CT ABD PELVIS W/O [id number] 14:53:00 [facility] 1970 Sex: F FAX: Debo Gutierrez [place]: St: REG Name: HERSON JACKSON [facility] : 1970 Age/S: 51/F [address] Unit: [id number] Loc: [place] [address] Phys: Debo Gutierrez Acct: [id number] Dis Date: Status: REG ER PHONE #: [phone] Exam Date: 08/08/2021 6465 FAX #: [phone] Reason: flank pain EXAMS: CPT CODE: [id number] CT ABD PELVIS W/O CONT 42365 EXAM: CT abdomen and pelvis without contrast [...] Sig kady Report (CONTINUED) FAX: Debo Gutierrez [place]: St: REG Name: HERSON JACKSON [facility] : 1970 Age/S: 51/F [address] Unit: [id number] Loc: [place] [address] Phys: Debo Gutierrez Acct: [id number] Dis Date: Status: REG ER PHONE #: [phone] Exam Date: 08/08/2021 1435 FAX #: Reason: flank pain EXAMS: CPT CODE: [id number] CT ABD PELVIS W/O CONT 92909 (Continued) nephrolithiasis . Evaluation of the bladder [...] fluid, or free air. 3. Findings suggest p elvic inflammatory disease. RECOMMENDATIONS: None. Internal Coding only:B3 at 8344 Reported and signed by: Ragini Molina PAGE 2 Signed Report (CONTINUED) FAX: Debo Gutierrez [place]: St: REG Name: HERSON JACKSON [facility] :1970 Age/S: 51/F [address] Unit: [id number] Loc: [place] [address] Phys: Debo Gutierrez Acct: [id number] Dis Date: Status: REG ER PHONE #: [phone] Exam Date: 08/08/2021 1435 FAX #: [phone] Reason: flank pain EXAMS: CPT CODE: [id number] CT ABD PELVIS W/O CONT 02426 (Continued) CC: Debo Gutierrez Technologist: Debo Ortiz; SCOTT BENAVIDES Trnscrd Dt/Tm: 08/08/2021 (1565) Aguilar Orig Print D/T: S: 08/08/2021 (1456 PAGE 3 Signed ReportM[facility] W/AUTO [id number] 14:21:00 Test Item Value Reference Range Interpretation [...] 3/uL 0.0-0.1 N - XR CHEST 1 [id number] 13:50:00 [facility] : 1970 Sex: F FAX: Debo Gutierrez [place]: St: PRE Name: HERSON JACKSON [facility] : 1970 Age/S: 51/F [address] Unit #: [id number] Loc: [place] [address] Phys: Debo Gutierrez Acct: [id number] Dis Date:Status: PRE ER PHONE #: [phone] Exam Date: 08/08/2021 1340 FAX #: [phone] Reason: CODE SEPSIS EXAMS: CPT CODE: [id number] XR CHEST 1 V 51999 CHEST 1 VIEW: INDICATION: CODE SEPSIS COMPARISON: [...] Gutierrez Technologist: NAY GILLIS; STUDENT 2ND YEAR [facility] Date/Time/By: 08/08/2021 (3470) : By: [email or web address] PAGE 1 Signed Report FAX: Debo GutierrezPCampus: St: PRE -- Name: HERSON JACKSON [facility] : 1970 Age/S: 51/F [address] Unit #: [id number] [place]: [place] [address] Phys: Debo Gutierrez Acct: [id number] Dis Date: Status: PRE ER PHONE #: [phone] Exam Date: 08/08/2021 1340 FAX #: [phone] Reason: CODE SEPSIS EXAMS: CPT CODE: [id number] XR CHEST 1 V 05164 (Continued) Orig Print D/T: S: 08/08/2021 (9310) PAGE 2 Signed ReportTHINPREP TIS PAP AND HPV mRNA E6/E7 REFLEX HPV 16,18/45 2021-06-19 18:43:00 Test Item Value Reference Interpretation Comments Range Clinical information None gi niurka (test code = 29515-2) Date of last NONE GIVEN menstrual period (test code = 8665-2) Prev. pap: (test code NONE G IVEN = 76864-1) Prev. bx: (test code NONE GI NIURKA = 60895-9) Source (test code = None giv en ) Statement of adequacy Satisf actory for (test code = 91351-5) evalua tion.Endocervi cony/transformat ion zone componentpresen t.Age and/or menstrua l status not prov ided Interpretation/result Negati ve for : (test code = intraepitheli al 77909-1) lesion or malignancy. Comment (test code = This Pa p test has ) been evaluated with computerassiste d technology. Review PMT, CT(ASCP)CT accounting administrator screening l ocation: (test code = 52820-1) [employer] [place] [address], [facility] [address] Comment (test code = EXPLANA TORY NOTE: 5079584) The Pap is a screening test for [...] Detected Not Detected Methodo logy: code = 12003-1) Transcriptio n-Mediat ed Amplificatio n This assay dete cts E6/E7 viral messenger RNA ( mRNA) from 14high-ris k HPV types (16,18,31,33,35 ,39,4 5,51,52,56,58,5 9,66, 68). The analyt ical performance characteristics of thisassay have been determined by [employer].The modifications h ave not been cleare d or approvedby the FDA. This assay has been validated pursu antto the CLIA regula tions and is used forclinical purposes. For additional information, pl ease refer tohttp://educat ion.[employer] .Reduce Data/ faq/BIU537o6(Th is link if provide d for information/edu catio nal purposes on ly.) RAC (test code = RAC) Performing Organization Information: Site ID: IG Name: [facility] Address: [address] [place] [address] Director: Dr. Rajinder Grant Site ID: RGA Name: [facility] Address: [address] [place] [address] Director: Rajinder Grant [facility] AND HPV mRNA E6/E7 REFLEX HPV 16,18/45 2021-06-19 18:43:00 Test Item Value Reference Interpretation Comments Range Clinical information None gi niurka (test code = 49953-5) Date of last NONE GIVEN menstrual period (test code = 8665-2) Prev. pap: (test code NONE G IVEN = 87862-0) Prev. bx: (test code NONE GI NIURKA = 57207-4) Source (test code = None giv en 27453-8) Statement of adequacy Satisf actory for (test code = 51915-2) evalua tion.Endocervi cony/transformat ion zone componentpresen t.Age and/or menstrua l status not prov ided Interpretation/result Negati ve for : (test code = intraepitheli al 70660-6) lesion or malignancy. Comment (test code = This Pa p test has ) been evaluated with computerassiste d technology. Review PMT, CT(ASCP)CT accounting administrator screening l ocation: (test code = 08205-3) [facility] [address], [facility] [address] Comment (test code = EXPLANA TORY NOTE: 8189652) The Pap is a screening test for [...] Detected Not Detected Methodo logy: code = 59777-5) Transcriptio n-Mediat ed Amplificatio n This assay dete cts E6/E7 viral messenger RNA ( mRNA) from 14high-ris k HPV types (16,18,31,33,35 ,39,4 5,51,52,56,58,5 9,66, 68). The analyt ical performance characteristics of thisassay have been determined by [employer].The modifications h ave not been cleare d or approvedby the FDA. This assay has been validated pursu antto the CLIA regula tions and is used forclinical purposes. For additional information, pl ease refer tohttp://educat ion.[employer] .Reduce Data/ faq/OJR948p4(Th is link if provide d for information/edu catio nal purposes on ly.) RAC (test code = RAC) Performing Organization Information: Site ID: IG [facility]: [facility] Address: [address] [place] [address] Director: Dr. Rajinder Grant Site ID: RGA Name: [facility] Address: [address] [place] [address] Director: Rajinder Grant [facility] AND HPV mRNA E6/E7 REFLEX HPV 16,18/45 2021-06-19 18:43:00 Test Item Value Reference Interpretation Comments Range Clinical information None gi niurka (test code = 65763-3) Date of last NONE GIVEN menstrual period (test code = 8665-2) Prev. pap: (test code NONE G IVEN = 84846-7) Prev. bx: (test code NONE GI NIURKA = 54482-9) Source (test code = None giv en ) Statement of adequacy Satisf actory for (test code = 41294-4) evalua tion.Endocervi cony/transformat ion zone componentpresen t.Age and/or menstrua l status not prov ided Interpretation/result Negati ve for : (test code = intraepitheli al 80219-2) lesion or malignancy. Comment (test code = This Pa p test has ) been evaluated with computerassiste d technology. Review PMT, CT(ASCP)CT accounting administrator screening l ocation: (test code = 65685-7) [employer] [address], [place] [address] 2 Comment (test code = EXPLANA TORY NOTE: 2749723) The Pap is a screening test for [...] Detected Not Detected Methodo logy: code = 61491-7) Transcriptio n-Mediat ed Amplificatio n This assay dete cts E6/E7 viral messenger RNA ( mRNA) from 14high-ris k HPV types (16,18,31,33,35 ,39,4 5,51,52,56,58,5 9,66, 68). The analyt ical performance characteristics of thisassay have been determined by [employer].The modifications h ave not been cleare d or approvedby the FDA. This assay has been validated pursu antto the CLIA regula tions and is used forclinical purposes. For additional information, pl ease refer tohttp://educat ion.[employer] .Reduce Data/ faq/IMO426j6(Th is link if provide d for information/edu catio nal purposes on ly.) JACEK (test code = RAC) Performing Organization Information: Site ID: IG Name: [facility] Address: [address] [place] [address] Director: Dr. Rajinder Grant Site ID: RGA Name: [facility] Address: [address] [place] [phone] Director: aRjinder Grant [facility] P[facility] AND HPV mRNA E6/E7 REFLEX HPV 16,18/45 2021-06-19 18:43:00 Test Item Value Reference Interpretation Comments Range Clinical information None gi niurka (test code = 11329-7) Date of last NONE GIVEN menstrual period (test code = 8665-2) Prev. pap: (test code NONE G IVEN = 82696-2) Prev. bx: (test code NONE GI NIURKA = 67456-5) Source (test code = None giv en ) Statement of adequacy Satisf actory for (test code = 13404-3) evalua tion.Endocervi cony/transformat ion zone componentpresen t.Age and/or menstrua l status not prov ided Interpretation/result Negati ve for : (test code = intraepitheli al 55605-4) lesion or malignancy. Comment (test code = This Pa p test has ) been evaluated with computerassiste d technology. Review PMT, CT(ASCP)CT accounting administrator screening l ocation: (test code = 50439-7) [employer] [address], [place] [address] Comment (test code = EXPLANA NONA NOTE: 4769133) The Pap is a screening test for [...] Detected Not Detected Methodo logy: code = 31127-1) Transcriptio n-Mediat ed Amplificatio n This assay dete cts E6/E7 viral messenger RNA ( mRNA) from 14high-ris k HPV types (16,18,31,33,35 ,39,4 5,51,52,56,58,5 9,66, 68). The fletcher tical performance characteristics of thisassay have been determined by [employer].The modifications h ave not been cleare d or approvedby the FDA. This assay has been validated pursu antto the CLIA regula tions and is used forclinical purposes. For additional information, pl ease refer tohttp://educat ion.[employer] .Reduce Data/ faq/PZJ406v9(Th is link if provide d for information/edu catio nal purposes on ly.) RAC (test code = RAC) Performing Organization Information: Site ID: IG Name: [facility] Address: [address] [place] [address] Director: Dr. Rajinder Grant Site ID: RGA Name: [facility] Address: [address] [place] [address] Director: Rajinder Grant [facility] PAP AND HPV mRNA E6/E7 REFLEX HPV 16,18/45 2021-06-19 18:43:00 Test Item Value Reference Interpretation Comments Range Clinical information None gi niurka (test code = 36751-3) Date of last NONE GIVEN menstrual period (test code = 8665-2) Prev. pap: (test code NONE G IVEN = 82094-4) Prev. bx: (test code NONE GI NIURKA = 48454-1) Source (test code = None giv en 57784-6) Statement of adequacy Satisf actory for (test code = 56856-5) evalua tion.Endocervi cony/transformat ion zone componentpresen t.Age and/or menstrua l status not prov ided Interpretation/result Negati ve for : (test code = intraepitheli al 81171-6) lesion or malignancy. Comment (test code = This Pa p test has ) been evaluated with computerassiste d technology. Review PMT, CT(ASCP)CT accounting administrator screening l ocation: (test code = 78724-1) [facility] [address], [facility] [address] Comment (test code = EXPLANA TORY NOTE: 2616452) The Pap is a screening test for [...] Detected Not Detected Methodo logy: code = 44756-0) Transcriptio n-Mediat ed Amplificatio n This assay dete cts E6/E7 viral messenger RNA ( mRNA) from 14high-ris k HPV types (16,18,31,33,35 ,39,4 5,51,52,56,58,5 9,66, 68). The analyt ical performance characteristics of thisassay have been determined by [employer].The modifications h ave not been cleare d or approvedby the FDA. This assay has been validated pursu antto the CLIA regula tions and is used forclinical purposes. For additional information, pl ease refer tohttp://educat ion.[employer] .com/ faq/DZR286z0(Th is link if provide d for information/edu catio nal purposes on ly.) JACEK (test code = JACEK) Performing Organization Information: Site ID: IG Name: [facility] Address: [address] [place] [address] Director: Dr. Rajinder Grant Site ID: RGA [facility]: [facility] Address: [address] [place] [address] Director: Rajinder Grant [facility] PAP AND HPV mRNA E6/E7 REFLEX HPV 16,18/45 2021-06-19 18:43:00 Test Item Value Reference Interpretation Comments Range Clinical information None gi niurka (test code = 39960-3) Date of last NONE GIVEN menstrual period (test code = 8665-2) Prev. pap: (test code NONE G IVEN = 14070-3) Prev. bx: (test code NONE GI NIURKA = 47875-1) Source (test code = None giv en ) Statement of adequacy Satisf actory for (test code = 31547-9) evalua tion.Endocervi cony/transformat ion zone componentpresen t.Age and/or menstrua l status not prov ided Interpretation/result Negati ve for : (test code = intraepitheli al 82689-0) lesion or malignancy. Comment (test code = This Pa p test has ) been evaluated with When You Wishiste d technology. Review PMT, CT(ASCP)CT accounting administrator screening l ocation: (test code = 38987-2) [employer] [place] [address] [place] [address], [facility] [address] Comment (test code = EXPLANA TORY NOTE: 9549798) The Pap is a screening test for [...] Detected Not Detected Methodo logy: code = 19775-7) Transcriptio n-Mediat ed Amplificatio n This assay dete cts E6/E7 viral messenger RNA ( mRNA) from 14high-ris k HPV types (16,18,31,33,35 ,39,4 5,51,52,56,58,5 9,66, 68). The analyt ical performance characteristics of thisassay have been determined by [employer].The modifications h ave not been cleare d or approvedby the FDA. This assay has been validated pursu antto the CLIA regula tions and is used forclinical purposes. For additional information, pl ease refer tohttp://educat ion.[employer] .Reduce Data/ faq/CPH329p5(Th is link if provide d for information/edu catio nal purposes on ly.) RAC (test code = RAC) Performing Organization Information: Site ID: IG Name: [facility] Address: [address] [place] [address] Director: Dr. Rajinder Grant Site ID: RGA Name: [facility] Address: [address] [place] [phone] Director: Rajinder Grant [facility] PAP AND HPV mRNA E6/E7 REFLEX HPV 16,18/45 2021-06-19 18:43:00 Test Item Value Reference Interpretation Comments Range Clinical information None gi niurka (test code = 09396-8) Date of last NONE GIVEN menstrual period (test code = 8665-2) Prev. pap: (test code NONE G IVEN = 74575-2) Prev. bx: (test code NONE GI NIURKA = 55546-1) Source (test code = None giv en 04264-0) Statement of adequacy Satisf actory for (test code = 33525-5) evalua tion.Endocervi cnoy/transformat ion zone componentpresen t.Age and/or menstrua l status not prov ided Interpretation/result Negati ve for : (test code = intraepitheli al 59825-7) lesion or malignancy. Comment (test code = This Pa p test has ) been evaluated with computerassiste d technology. Review PMT, CT(ASCP)CT accounting administrator screening l ocation: (test code = 88631-1) [employer] [address], [place] [address] Comment (test code = EXPLANA TORY NOTE: 8976752) The Pap is a screening test for [...] Detected Not Detected Methodo logy: code = 50630-0) Transcriptio n-Mediat ed Amplificatio n This assay dete cts E6/E7 viral messenger RNA ( mRNA) from 14high-ris k HPV types (16,18,31,33,35 ,39,4 5,51,52,56,58,5 9,66, 68). The analyt ical performance characteristics of thisassay have been determined by [employer].The modifications h ave not been cleare d or approvedby the FDA. This assay has been validated pursu antto the CLIA regula tions and is used forclinical purposes. For additional information, pl ease refer tohttp://educat ion.[employer] .Reduce Data/ faq/JHK958a6(Th is link if provide d for information/edu catio nal purposes on ly.) RAC (test code = RAC) Performing Organization Information: Site ID: IG Name: [facility] Address: [address] [place] [phone] Director: Dr. Rajinder Grant Site ID: RGA Name: [facility] Address: [address] [place] [phone] Director: Rajinder Grant [facility] [id number] 09:37:00 Test Item Value Reference Interpretation Comments Range Color, UA (test code YELLOW YELLOW = 5778-6) Appearance (test CLEAR CLEAR code = 5767-9) Specific gravity, 1.001-1.035 urine (test code = 5811-5) pH, urine (test code 5.0-8.0 = 5803-2) Glucose, urine (test NEGATIVE NEGATIVE code = 23726-7) Bilirubin, UA (test NEGATIVE NEGATIVE code = 5770-3) Ketones, UA (test NEGATIVE NEGATIVE code = 2514-8) Occult blood, urine NEGATIVE NEGATIVE (test code = 5794-3) Protein, UA (test NEGATIVE NEGATIVE code = 17907-3) Nitrite, UA (test NEGATIVE NEGATIVE code = [...] code = NONE SEEN See_Comment [Autom ated 03865-4) message] The sy stem which generated this result transmitted reference range : < OR = 2 /HPF. Th e reference range was not used to interpret this result as normal/abnormal . Squamous epithelial NONE SEEN See_Comment [Automa aydin cells, UA (test code message ] The system = 51483-7) which generated this result transmitted reference range [...] URINE, code = 630-4) ROUTINE Micro Number: [id number] Test Status: Fi nal Specimen Source [...] RAC) Organization Information: Site ID: RGA [facility]: [facility] Address: [address] [place] [phone] Director: Rajinder Grant Lab Interpretation Abnormal (test code = 83906-1) [facility] [id number] 09:37:00 Test Item Value Reference Interpretation Comments Range Color, UA (test code YELLOW YELLOW = 5778-6) Appearance (test CLEAR CLEAR code = 5767-9) Specific gravity, 1.001-1.035 urine (test code = 5811-5) pH, urine (test code 5.0-8.0 = 5803-2) Glucose, urine (test NEGATIVE NEGATIVE code = 16848-2) Bilirubin, UA (test NEGATIVE NEGATIVE code = 5770-3) Ketones, UA (test NEGATIVE NEGATIVE code = 2514-8) Occult blood, urine NEGATIVE NEGATIVE (test code = 5794-3) Protein, UA (test NEGATIVE NEGATIVE code = 78693-4) Nitrite, UA (test NEGATIVE NEGATIVE code = [...] code = NONE SEEN See_Comment [Autom ated 87146-9) message] The sy stem which generated this result transmitted reference range : < OR = 2 /HPF. Th e reference range was not used to interpret this result as normal/abnormal . Squamous epithelial NONE SEEN See_Comment [Automa aydin cells, UA (test code message ] The system = 12120-5) which generated this result transmitted reference range [...] URINE, code = 630-4) ROUTINE Micro Number: [id number] Test Status: Fi nal Specimen Source [...] RAC) Organization Information: Site ID: RGA Name: [facility] Address: [address] [place] [phone] Director: Rajinder Grant Lab Interpretation Abnormal (test code = 90958-8) [facility] TO [id number] 09:37:00 Test Item Value Reference Interpretation Comments Range Color, UA (test code YELLOW YELLOW = 5778-6) Appearance (test CLEAR CLEAR code = 5767-9) Specific gravity, 1.001-1.035 urine (test code = 5811-5) pH, urine (test code 5.0-8.0 = 5803-2) Glucose, urine (test NEGATIVE NEGATIVE code = 91014-3) Bilirubin, UA (test NEGATIVE NEGATIVE code = 5770-3) Ketones, UA (test NEGATIVE NEGATIVE code = 2514-8) Occult blood, urine NEGATIVE NEGATIVE (test code = 5794-3) Protein, UA (test NEGATIVE NEGATIVE code = 72785-9) Nitrite, UA (test NEGATIVE NEGATIVE code = [...] code = NONE SEEN See_Comment [Autom ated 04068-4) message] The sy stem which generated this result transmitted reference range : < OR = 2 /HPF. Th e reference range was not used to interpret this result as normal/abnormal . Squamous epithelial NONE SEEN See_Comment [Automa aydin cells, UA (test code message ] The system = 25444-5) which generated this result transmitted reference range [...] URINE, code = 630-4) ROUTINE Micro Number: [id number] Test Status: Fi nal Specimen Source [...] Information: Site ID: [facility] Address: [address] [place] [phone] Director: Rajinder Grant Lab Interpretation Abnormal (test code = 34571-0) [facility] WITH REFLEX TO [id number] 09:37:00 Test Item Value Reference Interpretation Comments Range Color, UA (test code YELLOW YELLOW = 5778-6) Appearance (test CLEAR CLEAR code = 5767-9) Specific gravity, 1.001-1.035 urine (test code = 5811-5) pH, urine (test code 5.0-8.0 = 5803-2) Glucose, urine (test NEGATIVE NEGATIVE code = 84896-0) Bilirubin, UA (test NEGATIVE NEGATIVE code = 5770-3) Ketones, UA (test NEGATIVE NEGATIVE code = 7104-8) Occult blood, urine NEGATIVE NEGATIVE (test code = 5794-3) Protein, UA (test NEGATIVE NEGATIVE code = 82370-1) Nitrite, UA (test NEGATIVE NEGATIVE code = [...] code = NONE SEEN See_Comment [Autom ated 55119-3) message] The sy stem which generated this result transmitted reference range : < OR = 2 /HPF. Th e reference range was not used to interpret this result as normal/abnormal . Squamous epithelial NONE SEEN See_Comment [Automa aydin cells, UA (test code message ] The system = 88616-1) which generated this result transmitted reference range [...] URINE, code = 630-4) ROUTINE Micro Number: [id number] Test Status: Fi nal Specimen Source [...] RAC) Organization Information: Site ID: RGA [facility]: [facility] Address: [address] [place] [phone] Director: Rajinder Grant Lab Interpretation Abnormal (test code = 64353-8) [facility] WITH REFLEX TO [id number] 09:37:00 Test Item Value Reference Interpretation Comments Range Color, UA (test code YELLOW YELLOW = 5778-6) Appearance (test CLEAR CLEAR code = 5767-9) Specific gravity, 1.001-1.035 urine (test code = 5811-5) pH, urine (test code 5.0-8.0 = 5803-2) Glucose, urine (test NEGATIVE NEGATIVE code = 59258-7) Bilirubin, UA (test NEGATIVE NEGATIVE code = 5770-3) Ketones, UA (test NEGATIVE NEGATIVE code = 2514-8) Occult blood, urine NEGATIVE NEGATIVE (test code = 5794-3) Protein, UA (test NEGATIVE NEGATIVE code = 56262-5) Nitrite, UA (test NEGATIVE NEGATIVE code = [...] code = NONE SEEN See_Comment [Autom ated 16217-0) message] The sy stem which generated this result transmitted reference range : < OR = 2 /HPF. Th e reference range was not used to interpret this result as normal/abnormal . Squamous epithelial NONE SEEN See_Comment [Automa aydin cells, UA (test code message ] The system = 21300-8) which generated this result transmitted reference range [...] URINE, code = 630-4) ROUTINE Micro Number: [id number] Test Status: Fi nal Specimen Source [...] RAC) Organization Information: Site ID: RGA [facility] Address: [address] [place] [phone] Director: Rajinder Grant Lab Interpretation Abnormal (test code = 71030-0) [facility], WITH REFLEX TO [id number] 09:37:00 Test Item Value Reference Interpretation Comments Range Color, UA (test code YELLOW YELLOW = 5778-6) Appearance (test CLEAR CLEAR code = 5767-9) Specific gravity, 1.001-1.035 urine (test code = 5811-5) pH, urine (test code 5.0-8.0 = 5803-2) Glucose, urine (test NEGATIVE NEGATIVE code = 88835-8) Bilirubin, UA (test NEGATIVE NEGATIVE code = 5770-3) Ketones, UA (test NEGATIVE NEGATIVE code = 2514-8) Occult blood, urine NEGATIVE NEGATIVE (test code = 5794-3) Protein, UA (test NEGATIVE NEGATIVE code = 59776-0) Nitrite, UA (test NEGATIVE NEGATIVE code = [...] code = NONE SEEN See_Comment [Autom ated 49539-6) message] The sy stem which generated this result transmitted reference range : < OR = 2 /HPF. Th e reference range was not used to interpret this result as normal/abnormal . Squamous epithelial NONE SEEN See_Comment [Automa aydin cells, UA (test code message ] The system = 89831-7) which generated this result transmitted reference range [...] URINE, code = 630-4) ROUTINE Micro Number: [id number] Test Status: Fi nal Specimen Source [...] Information: Site ID: [facility]: [facility] Address: [address] [place] [phone] Director: Rajinder Grant Lab Interpretation Abnormal (test code = 95726-1) [facility]FLEX TO [id number] 09:37:00 Test Item Value Reference Interpretation Comments Range Color, UA (test code YELLOW YELLOW = 5778-6) Appearance (test CLEAR CLEAR code = 5767-9) Specific gravity, 1.009 1.001-1.035 urine (test code = 5811-5) pH, urine (test code 7.0 5.0-8.0 = 5803-2) Glucose, urine (test NEGATIVE NEGATIVE code = 23435-6) Bilirubin, UA (test NEGATIVE NEGATIVE code = 5770-3) Ketones, UA (test NEGATIVE NEGATIVE code = 2514-8) Occult blood, urine NEGATIVE NEGATIVE (test code = 5794-3) Protein, UA (test NEGATIVE NEGATIVE code = 24334-5) Nitrite, UA (test NEGATIVE NEGATIVE code = [...] code = NONE SEEN See_Comment [Autom ated 23397-1) message] The sy stem which generated this result transmitted reference range : < OR = 2 /HPF. Th e reference range was not used to interpret this result as normal/abnormal . Squamous epithelial NONE SEEN See_Comment [Automa aydin cells, UA (test code message ] The system = 87684-1) which generated this result transmitted reference range [...] URINE, code = 630-4) ROUTINE Micro Number: [id number] Test Status: Fi nal Specimen Source [...] RAC) Organization Information: Site ID: RGA [facility]: [facility] Address: [address] [place] [address] Director: Rajinder Grant Lab Interpretation Abnormal (test code = 96761-3) [facility] urinalysis [id number] 18:20:00 Test Item Value Reference Range Interpretation Comments Color urine, POC (test Straw code = 9018665) Clarity urine, POC (test Clear code = 2480212) Glucose urine, POC (test Negative Negative code = 9559361) Bilirubin urine, POC Negative Negative (test code = 8092762) Ketones urine, POC (test Negative Negative code = 5279318) Specific gravity urine, 1.005-1.030 POC (test code = 3722132) Blood urine, POC (test Trace Negative A code = 7344336) pH urine, POC (test code See_Comment [A utomated message] = 7827954) The system [employer] h generated this result transmitted ref erence range: 5.0, 5.5 , 6.0, 6.5, 7.0, 7.5, 8.0, 8.5. The refere nce range was not u sed to interpret this result as normal/abnor mal. Protein urine, POC (test Negative Negative code = 0676998) Urobilinogen urine, POC <2.0 See_Comment [Au tomated message] (test code = 4137296) The sy stem which generated this result transmitted ref erence range: <=2.0. T he reference range was not used to int erpret this result as normal/abnormal . Nitrite urine, POC (test Negative Negative code = 8436458) Leukocyte esterase Negative Negative urine, POC (test code = 2374257) Lab Interpretation (test Abnormal code = 48116-9) [facility] urinalysis [id number] 18:20:00 Test Item Value Reference Range Interpretation Comments Color urine, POC (test Straw code = 5894421) Clarity urine, POC (test Clear code = 5801716) Glucose urine, POC (test Negative Negative code = 2008236) Bilirubin urine, POC Negative Negative (test code = 1620458) Ketones urine, POC (test Negative Negative code = 3555367) Specific gravity urine, 1.005-1.030 POC (test code = 4427098) Blood urine, POC (test Trace Negative A code = 6662018) pH urine, POC (test code See_Comment [A utomated message] = 2794660) The system [employer] generated this result transmitted ref erence range: 5.0, 5.5 , 6.0, 6.5, 7.0, 7.5, 8.0, 8.5. The refere nce range was not u sed to interpret this result as normal/abnor mal. Protein urine, POC (test Negative Negative code = 3223875) Urobilinogen urine, POC <2.0 See_Comment [Au tomated message] (test code = 0407927) The sy stem which generated this result transmitted ref erence range: <=2.0. T he reference range was not used to int erpret this result as normal/abnormal . Nitrite urine, POC (test Negative Negative code = 2192959) Leukocyte esterase Negative Negative urine, POC (test code = 1291326) Lab Interpretation (test Abnormal code = 29405-1) [facility] urinalysis [id number] 18:20:00 Test Item Value Reference Range Interpretation Comments Color urine, POC (test Straw code = 6585100) Clarity urine, POC (test Clear code = 2441777) Glucose urine, POC (test Negative Negative code = 2178172) Bilirubin urine, POC Negative Negative (test code = 8137878) Ketones urine, POC (test Negative Negative code = 2830690) Specific gravity urine, 1.005-1.030 POC (test code = 5834545) Blood urine, POC (test Trace Negative A code = 5215066) pH urine, POC (test code See_Comment [A utomated message] = 5529246) The system [employer] generated this result transmitted ref erence range: 5.0, 5.5 , 6.0, 6.5, 7.0, 7.5, 8.0, 8.5. The refere nce range was not u sed to interpret this result as normal/abnor mal. Protein urine, POC (test Negative Negative code = 3639551) Urobilinogen urine, POC <2.0 See_Comment [Au tomated message] (test code = 4146687) The sy stem which generated this result transmitted ref erence range: <=2.0. T he reference range was not used to int erpret this result as normal/abnormal . Nitrite urine, POC (test Negative Negative code = 1244795) Leukocyte esterase Negative Negative urine, POC (test code = 0034230) Lab Interpretation (test Abnormal code = 90813-3) [facility] urinalysis [id number] 18:20:00 Test Item Value Reference Range Interpretation Comments Color urine, POC (test Straw code = 0334003) Clarity urine, POC (test Clear code = 4423590) Glucose urine, POC (test Negative Negative code = 6773915) Bilirubin urine, POC Negative Negative (test code = 7292929) Ketones urine, POC (test Negative Negative code = 1405570) Specific gravity urine, 1.005-1.030 POC (test code = 5497489) Blood urine, POC (test Trace Negative A code = 5489956) pH urine, POC (test code See_Comment [A utomated message] = 8430144) The system [employer] generated this result transmitted ref erence range: 5.0, 5.5 , 6.0, 6.5, 7.0, 7.5, 8.0, 8.5. The refere nce range was not u sed to interpret this result as normal/abnor mal. Protein urine, POC (test Negative Negative code = 2205828) Urobilinogen urine, POC <2.0 See_Comment [Au tomated message] (test code = 7304911) The sy stem which generated this result transmitted ref erence range: <=2.0. T he reference range was not used to int erpret this result as normal/abnormal . Nitrite urine, POC (test Negative Negative code = 8633070) Leukocyte esterase Negative Negative urine, POC (test code = 0199958) Lab Interpretation (test Abnormal code = 40467-9) [facility] urinalysis [id number] 18:20:00 Test Item Value Reference Range Interpretation Comments Color urine, POC (test Straw code = 3238944) Clarity urine, POC (test Clear code = 8490611) Glucose urine, POC (test Negative Negative code = 2877302) Bilirubin urine, POC Negative Negative (test code = 5296711) Ketones urine, POC (test Negative Negative code = 9397670) Specific gravity urine, 1.005-1.030 POC (test code = 4175699) Blood urine, POC (test Trace Negative A code = 0738803) pH urine, POC (test code See_Comment [A utomated message] = 9337847) The system [employer] generated this result transmitted ref erence range: 5.0, 5.5 , 6.0, 6.5, 7.0, 7.5, 8.0, 8.5. The refere nce range was not u sed to interpret this result as normal/abnor mal. Protein urine, POC (test Negative Negative code = 8893471) Urobilinogen urine, POC <2.0 See_Comment [Au tomated message] (test code = 2718718) The sy stem which generated this result transmitted ref erence range: <=2.0. T he reference range was not used to int erpret this result as normal/abnormal . Nitrite urine, POC (test Negative Negative code = 1093115) Leukocyte esterase Negative Negative urine, POC (test code = 3723399) Lab Interpretation (test Abnormal code = 89974-8) [facility] urinalysis [id number] 18:20:00 Test Item Value Reference Range Interpretation Comments Color urine, POC (test Straw code = 9612291) Clarity urine, POC (test Clear code = 7348250) Glucose urine, POC (test Negative Negative code = 4877747) Bilirubin urine, POC Negative Negative (test code = 8704132) Ketones urine, POC (test Negative Negative code = 7229282) Specific gravity urine, 1.005-1.030 POC (test code = 8845611) Blood urine, POC (test Trace Negative A code = 1203002) pH urine, POC (test code See_Comment [A utomated message] = 8254738) The system [employer] generated this result transmitted ref erence range: 5.0, 5.5 , 6.0, 6.5, 7.0, 7.5, 8.0, 8.5. The refere nce range was not u sed to interpret this result as normal/abnor mal. Protein urine, POC (test Negative Negative code = 1068993) Urobilinogen urine, POC <2.0 See_Comment [Au tomated message] (test code = 4327379) The sy stem which generated this result transmitted ref erence range: <=2.0. T he reference range was not used to int erpret this result as normal/abnormal . Nitrite urine, POC (test Negative Negative code = 2480746) Leukocyte esterase Negative Negative urine, POC (test code = 0215149) Lab Interpretation (test Abnormal code = 45667-7) [facility] urinalysis [id number] 18:20:00 Test Item Value Reference Range Interpretation Comments Color urine, POC (test Straw code = 9371659) Clarity urine, POC (test Clear code = 1241147) Glucose urine, POC (test Negative Negative code = 3967546) Bilirubin urine, POC Negative Negative (test code = 0567713) Ketones urine, POC (test Negative Negative code = 3326896) Specific gravity urine, 1.015 1.005-1.030 POC (test code = 0735881) Blood urine, POC (test Trace Negative A code = 0855574) pH urine, POC (test code 8.0 See_Comment [A utomated message] = 5108250) The system [employer] generated this result transmitted ref erence range: 5.0, 5.5 , 6.0, 6.5, 7.0, 7.5, 8.0, 8.5. The refere nce range was not u sed to interpret this result as normal/abnor mal. Protein urine, POC (test Negative Negative code = 2639724) Urobilinogen urine, POC <2.0 <=2.0 (test code = 9420738) Nitrite urine, POC (test Negative Negative code = 8909573) Leukocyte esterase Negative Negative urine, POC (test code = 5631540) Lab Interpretation (test Abnormal code = 10730-9) [facility]Presence] in Respiratory specimen by LATESHA with probe [id number] 09:55:01 Test Item Value Reference Range Interpretation Comments SARS-CoV-2 (COVID-19) RNA Not detected Not-Detected [Presence] in Respiratory specimen by LATESHA with probe detection (test code = 93231-7) Whether patient is employed in a healthcare setting (test code = 94666-4) Whether the patient has symptoms related to condition of interest (test code = 60806-8) Patient was hospitalized because of this condition (test code = 60700-3) Whether the patient was admitted to intensive care unit (ICU) for condition of interest (test code = 67583-6) Whether patient resides in a congregate care setting (test code = 73374-5) DESI FALL-CoV-2 (COVID-19) RNA [Presence] in Respiratory specimen by LATESHA with probe [id number] 03:07:44 Test Item Value Reference Range Interpretation Comments SARS-CoV-2 (COVID-19) RNA Not detected Not-Detected [Presence] in Respiratory specimen by LATESHA with probe detection (test code = 08948-6) Whether patient is employed in a healthcare setting (test code = 24047-9) Whether the patient has symptoms related to condition of interest (test code = 92509-1) Patient was hospitalized because of this condition (test code = 68866-4) Whether the patient was admitted to intensive care unit (ICU) for condition of interest (test code = 30286-3) Whether patient resides in a congregate care setting (test code = 09688-7) DESI FALL-CoV-2 (COVID-19) RNA [Presence] in Respiratory specimen by LATESHA with probe [id number] 02:34:50 Test Item Value Reference Range Interpretation Comments SARS-CoV-2 (COVID-19) RNA Not detected Not-Detected [Presence] in Respiratory specimen by LATESHA with probe detection (test code = 46074-9) Whether patient is employed in a healthcare setting (test code = 18375-0) Whether the patient has symptoms related to condition of interest (test code = 52709-1) Patient was hospitalized because of this condition (test code = 43999-3) Whether the patient was admitted to intensive care unit (ICU) for condition of interest (test code = 07424-5) Whether patient resides in a congregate care setting (test code = 83519-4) DESI DUEÑAS SETOLKHHFGUP-SeW-5 (COVID-19) RNA [Presence] in Respiratory specimen by LATESHA with probe [id number] 22:46:50 Test Item Value Reference Range Interpretation Comments SARS-CoV-2 (COVID-19) RNA Not detected Not-Detected [Presence] in Respiratory specimen by LATESHA with probe detection (test code = 73844-2) [facility]-CoV-2 (COVID-19) RNA [Presence] in Respiratory specimen by LATESHA with probe [id number] 10:19:38 Test Item Value Reference Range Interpretation Comments SARS-CoV-2 (COVID-19) RNA Not detected Not-Detected [Presence] in Respiratory specimen by LATESHA with probe detection (test code = 74760-4) [facility]-CoV-2 (COVID-19) RNA [Presence] in Respiratory specimen by LATESHA with probe [id number] 00:17:03 Test Item Value Reference Range Interpretation Comments SARS-CoV-2 (COVID-19) RNA Not detected Not-Detected [Presence] in Respiratory specimen by LATESHA with probe detection (test code = 03339-7) [facility]-CoV-2 (COVID-19) RNA [Presence] in Respiratory specimen by LATESHA with probe [id number] 00:59:15 Test Item Value Reference Range Interpretation Comments SARS-CoV-2 (COVID-19) RNA Not detected Not-Detected [Presence] in Respiratory specimen by LATESHA with probe detection (test code = 79153-6) [place] [address]+ i-STAT [id number] 08:12:00 Test Item Value Reference [...] PELVIS WITHOUT CONTRAST, RENAL STONE PROTOCOL:Location code: [id number] HISTORY: Flank painCOMPARISON: CT abdomen and pelvis [...] Range Interpretation Comments COLOR (test code = [place] YELLOW A COLU) CLARITY (test code = [...] 11:03:05CT abdomen and pelvis with contrastLocation Code: [id number] HISTORY: Lower abdominal painCOMPARISON: NoneTechnique: Helical CT [...]
--- NOTE | 2023-01-20 14:46 | RAD REPORT ---
EXAM DESCRIPTION: CT - C Spine Wo Con - 01/20/2023 2:33 pm CLINICAL HISTORY: pain, prior injury/surgery Neck pain, neck injury COMPARISON: Soft Tissue Neck W/Contr dated 06/24/2022 FINDINGS: There is extensive postsurgical fusion changes present spanning C4-T1. Hardware is present posterior elements of the cervical spine with large laminectomies spanning C3 -6. No evidence of bulmaro dware complication. No evidence of acute cervical spine fracture or subluxation. Prevertebral soft tissues are normal in thickness. The odontoid is normal and the lateral masses are symmetric. IMPRESSION: Extensive postsurgical changes involving the cervical spine with bony fusion present spa nning C4-T1. No hardware complication is evident. No acute cervical spine abnormality is detected. All CT scans are performed using dose optimization technique as appropriate and may include automated exposure control or mA/KV adjustment according to patient size.
[2023-01-20] MEDS ORDERED: dexAMETHasone 10 MG/ML VIAL ONE (14:52)
[2023-01-20] MEDS ORDERED: KETOROLAC 30 MG/ML INJ ONE (14:52)
[2023-01-20] MEDS ORDERED: DIAZEPAM 10 MG/2 ML INJ SYRINGE ONE (14:55)
--- NOTE | 2023-01-20 16:00 | EDPHYS ---
Physician Documentation [facility] Name: Fany Meza Age: 52 yrs Sex: Female : 1970 Arrival Date: 01/20/2023 Time: 14:02 Bed 16 Private MD: ED Physician Karl Dykes HPI: 01/20 15:28 This 52 yrs old Female presents to ER via Ambulatory with complaints of Neck pain, sb4 Shoulder Pain. 17:43 Patient comes in complaining of cervical neck pain that radiates to her left shoulder. sb4 She states it started yesterday. She denies any injury and is not sure what caused the pain. She did have a cervical fusion a few years ago. She is concerned about the hardware. She did take a Flexeril prior to arrival which states did not help her pain. She denies any numbness or tingling. 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 - Social history:: Smoking status: Patient reports the use of cigarette tobacco products. ROS: 17:43 Constitutional: Negative for fever, chills, and weight loss, sb4 17:43 Neck: Positive for pain with movement, pain at rest, 17:43 All other systems are negative, Exam: 17:43 Constitutional: This is a well developed, well nourished patient who is awake, alert, sb4 and in no acute distress. Head/Face: Normocephalic, atraumatic. Eyes: Extra-ocular motions intact. Periorbital areas with no swelling, redness, or edema. ENT: Mucous membranes moist. Skin: Warm, dry with normal turgor. Normal color with no rashes, no lesions, and no evidence of cellulitis. MS/ Extremity: Pulses equal, no cyanosis. Neurovascular intact. Full, normal range of motion. Neuro: Awake and alert, GCS 15, oriented to person, place, time, and situation. Motor strength 5/5 in all extremities. Sensory grossly intact. 17:43 Neck: External neck: is normal, no acute changes, C-spine: appears grossly normal, no vertebral tenderness, no crepitus, ROM/movement: pain, that is moderate, with any movement, Meningeal signs: are not present, nuchal rigidity, is not appreciated, Vital Signs: 14:15 BP 130 / 90; Pulse 101; Resp 16; Temp 98; Pulse Ox 98% ; Weight 78.93 kg; Height 5 ft. db 4 in. ; Pain 8/10; 15:00 BP 124 / 87; Pulse 81; Resp 16; Pulse Ox 95% on R/A; db 16:00 BP 120 / 84; Pulse 72; Resp 16; Pulse Ox 99% on R/A; db 14:15 Body Mass Index 29.87 (78.93 kg, 162.56 cm) db 14:15 Pain Scale: Adult db MDM: 14:06 Patient medically screened. sb4 17:43 Differential diagnosis: cervical strain, fracture, Neck Contusion Spondylolisthesis sb4 Spondylosis subluxation. Data reviewed: vital signs, nurses notes, radiologic studies, and as a result, I will discharge patient. Care significantly affected by the following chronic conditions: Hypertension. Counseling: I had a detailed discussion with the patient and/or guardian regarding the historical points, exam findings, and any diagnostic results supporting the discharge/admit diagnosis, radiology results, to return to the emergency department if symptoms worsen or persist or if there are any questions or concerns that arise at home. 01/20 14:29 Order name: C Spine Wo Con; Complete Time: 14:48 EDNC 01/20 14:22 Order name: IV Start; Complete Time: 15:03 sb4 Administered Medications: 14:54 Drug: Diazepam IVP 5 mg IVP once Route: IVP; Site: right hand; db 16:23 Follow up: Response: No adverse reaction db 14:55 Drug: Ketorolac IVP 15 mg IVP once Route: IVP; Site: right hand; db 16:23 Follow up: Response: No adverse reaction db 15:00 Drug: Decadron - Dexamethasone IVP 10 mg IVP once Route: IVP; Site: right hand; db 16:23 Follow up: Response: No adverse reaction db Disposition: 16:32 Co-signature as Attending Physician, Karl Dykes MD I agree with the assessment and kdr plan of care. Disposition Summary: 01/20/23 16:00 Discharge Ordered Notes: Location: Home sb4 Problem: an acute exacerbation sb4 Symptoms: have improved sb4 Condition: Stable sb4 Diagnosis - Strain of muscle, fascia and tendon at neck level sb4 Followup: sb4 - With: Private Physician - When: As needed - Reason: Recheck today's complaints, Re-evaluation by your physician Discharge Instructions: - Discharge Summary Sheet sb4 - Musculoskeletal Pain sb4 Forms: - Work release form sb4 - Medication Reconciliation Form sb4 - Thank You Letter sb4 - Antibiotic Education sb4 - Prescription Opioid Use sb4 - Patient Portal Instructions sb4 - Leadership Thank You Letter sb4 Prescriptions: - ketorolac 10 mg Oral tablet - take 1 tablet ORAL route every 4 to 6 hours as needed for pain; do not exceed 4 sb4 doses per 24 hrs; 12 tablet; Refills: 0, Product Selection Permitted - Diazepam 5 mg Oral Tablet - take 1 tablet ORAL route every 8 hours As needed; 10 tablet; Refills: 0, sb4 Product Selection Permitted Signatures: Dispatcher [employer] EDMS Karl Dykes MD MD kdr Ness Marx, RN RN Farhana Lee PA-C PARachna sb4 Corrections: (The following items were deleted from the chart) 14:20 14:19 PMHx: Hep C; db db 14:20 14:19 PMHx: Hep C; db db 14:20 14:19 PMHx: Hep C; db db 14:20 14:19 PMHx: Hep C; db db 14:20 14:19 PMHx: Hep C; db db 14:29 14:25 CT-CERVICAL SPINE W/O CONTRAST ordered. EDMS EDMS
--- NOTE | 2023-01-20 16:00 | ER ---
Nurse's Notes [facility] Name: Fany Meza Age: 52 yrs Sex: Female : 1970 Arrival Date: 01/20/2023 Time: 14:02 Bed 16 Private MD: Diagnosis: Strain of muscle, fascia and tendon at neck level Presentation: 01/20 14:15 Chief complaint: Patient states: PATIENT HERE FOR PAIN IN NECK STARTED YESTERDAY AROUND db NOON. RADIATES DOWN LEFT SHOULDER BLADE. TOOK FLEXERIL AROUND NOON BUT DID NOT HELP. Coronavirus screen: Client denies travel out of the [place] in the last 14 days. At this time, the client does not indicate any symptoms associated with coronavirus-19. Ebola Screen: Patient negative for fever greater than or equal to 101.5 degrees Fahrenheit, and additional compatible Ebola Virus Disease symptoms Patient denies exposure to infectious person. Patient denies travel to an Ebola-affected area in the 21 days before illness onset. No symptoms or risks identified at this time. Initial Sepsis Screen: Does the patient meet any 2 criteria? No. Patient's initial sepsis screen is negative. Does the patient have a suspected source of infection? No. Patient's initial sepsis screen is negative. Risk Assessment: Do you want to hurt yourself or someone else? Patient reports no desire to harm self or others. Onset of symptoms. 14:15 Method Of Arrival: Ambulatory db 14:15 Acuity: SHARAN 3 db Triage Assessment: 14:19 General: Appears in no apparent distress. comfortable, Behavior is calm, cooperative. db Pain: Complains of pain in back, LEFT SHOULDER. 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 - Social history:: Smoking status: Patient reports the use of cigarette tobacco products. Screenin:59 [facility] ED Fall Risk Assessment (Adult) History of falling in the last 3 months, db including since admission No falls in past 3 months (0 pts) Confusion or Disorientation No (0 pts) Intoxicated or Sedated No (0 pts) Impaired Gait No (0 pts) Mobility Assist Device Used No (0 pt) Altered Elimination No (0 pt) Score/Fall Risk Level 0 - 2 = Low Risk Oriented to surroundings, Maintained a safe environment. Abuse screen: Denies threats or abuse. Denies injuries from another. Nutritional screening: No deficits noted. Tuberculosis screening: No symptoms or risk factors identified. Assessment: 14:21 Reassessment: SEE TRIAGE FOR INITIAL ASSESSMENT. db 15:00 Reassessment: Patient appears in no apparent distress at this time. Patient and/or db family updated on plan of care and expected duration. Pain level reassessed. Patient is alert, oriented x 3, equal unlabored respirations, skin warm/dry/pink. Patient states feeling better. Patient states symptoms have improved. General: Appears in no apparent distress. comfortable, Behavior is calm, cooperative, quiet. Neuro: Level of Consciousness is awake, alert, obeys commands, Oriented to person, place, time, situation. Respiratory: Airway is patent Respiratory effort is even, unlabored, Respiratory pattern is regular, symmetrical. 15:58 Reassessment: PT AMBULATORY TO RESTROOM. db 16:05 Reassessment: Patient appears in no apparent distress at this time. Patient and/or db family updated on plan of care and expected duration. Pain level reassessed. Patient is alert, oriented x 3, equal unlabored respirations, skin warm/dry/pink. Patient states feeling better. Patient states symptoms have improved. Vital Signs: 14:15 BP 130 / 90; Pulse 101; Resp 16; Temp 98; Pulse Ox 98% ; Weight 78.93 kg; Height 5 ft. db 4 in. ; Pain 8/10; 15:00 BP 124 / 87; Pulse 81; Resp 16; Pulse Ox 95% on R/A; db 16:00 BP 120 / 84; Pulse 72; Resp 16; Pulse Ox 99% on R/A; db 14:15 Body Mass Index 29.87 (78.93 kg, 162.56 cm) db 14:15 Pain Scale: Adult db ED Course: 14:05 Patient arrived in ED. mr 14:05 Farhana Schultz PA-C is [facility]. sb4 14:05 Karl Dykes MD is Attending Physician. sb4 14:09 Ness Marx, RN is Primary Nurse. db 14:19 Triage completed. db 14:19 Arm band placed on Patient placed in an exam room. db 14:35 C Spine Wo Con In Process Unspecified. EDMS 14:45 Missed attempt(s): 22 gauge in right antecubital area. Bleeding controlled, band aid db applied, catheter tip intact. 14:54 Inserted saline lock: 22 gauge in right hand, using aseptic technique. Blood collected. db 15:59 Patient has correct armband on for positive identification. Bed in low position. Call db light in reach. Side rails up X 1. Pulse ox on. NIBP on. 16:22 Provided Education on: DISCHARGE AND FOLLOW UP. db 16:22 No provider procedures requiring assistance completed. IV discontinued, intact, db bleeding controlled, Pressure dressing applied. Administered Medications: 14:54 Drug: Diazepam IVP 5 mg IVP once Route: IVP; Site: right hand; db 16:23 Follow up: Response: No adverse reaction db 14:55 Drug: Ketorolac IVP 15 mg IVP once Route: IVP; Site: right hand; db 16:23 Follow up: Response: No adverse reaction db 15:00 Drug: Decadron - Dexamethasone IVP 10 mg IVP once Route: IVP; Site: right hand; db 16:23 Follow up: Response: No adverse reaction db Medication: 16:22 VIS not applicable for this client. db Outcome: 16:00 Discharge ordered by MD. sb4 16:22 Discharged to home ambulatory, db 16:22 Condition: stable 16:22 Discharge instructions given to patient, Instructed on discharge instructions, follow up and referral plans. Prescriptions given X 2, 16:23 Patient left the ED. db Signatures: Dispatcher [employer] EDCA JoeyChristina, Moises Reg mr Ness Marx, RN RN Farhana Lee PA-C PARachna sb4 Corrections: (The following items were deleted from the chart) 14:20 14:19 PMHx: Hep C; db db 14:20 14:19 PMHx: Hep C; db db 14:20 14:19 PMHx: Hep C; db db 14:20 14:19 PMHx: Hep C; db db 14:20 14:19 PMHx: Hep C; db db
[2023-01-20 16:55] VITALS: TEMP 98
[2023-01-20 16:57] VITALS: BP 120/84; O2SAT 99
== END 2023-01-20 16:23 | disposition home or self-care (01) ==
LOC: ER 14:02
DX: S16.1XXA Strain of muscle, fascia and tendon at neck level, initial encounter (principal)
CPT/HCPCS: 72125; J1100; J3360

== ENCOUNTER 2023-02-07 15:15 | Emergency (ER) | payer SELFPAY ==
--- OUTSIDE RECORDS SUMMARY | 2023-02-07 15:37 | XMS REPORT | Continuity of Care Document ---
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 30 days. promethazin 202- No Metho di e-DM 10-11 st (PROMETHAZI 00:00: 00:00 Hospi ta NE-DM) 00 :00 l 6.25-15 mg/5 mL syrup promethazin 2022- No Metho di e-DM 10-11 st [...] l 6.25-15 mg/5 mL syrup HYDROcodone 2022-0 202- No [id number] 1{tbl} Q6H Take 1 [facility] -acetaminop -02 10- tablet by [facility] ([facility]) 00:00: 04:59 [facility] 5-325 mg 00 :00 every 6 l per tablet (six) hours as needed for moderate pain or severe pain for up to 2 days .acute pain. Max Daily Amount: 4 tablets HYDROcodone 2022-0 2022- No [id number] 1{tbl} Q6H Take 1 [facility] -acetaminop 6-23 -[address] [facility] ([facility]) 00:00: 04:59 [facility] 5-325 mg 00 :00 every 6 l per tablet (six) hours as needed for moderate pain or severe pain for up to 2 days .acute pain. Max Daily Amount: 4 tablets HYDROcodone 2021-0 2021- No 1{tbl} Q6H Take 1 [facility] -acetaminop 6-23 06-[address] [facility] ([facility]) 00:00: 04:59 [facility] 5-325 mg 00 :00 every 6 l per tablet (six) hours as needed for moderate pain or severe pain for up to 2 days .acute pain. Max Daily Amount: 4 tablets HYDROcodone 2021-0 2021- No 1{tbl} Q6H Take 1 [facility] -acetaminop 6-23 06-[address] [facility] ([facility]) 00:00: 04:59 [facility] 5-325 mg 00 :00 every 6 l per tablet (six) hours as needed for moderate pain or severe pain for up to 2 days .acute pain. Max Daily Amount: 4 tablets HYDROcodone 2021-0 2021- 1{tbl} Q6H Take 1 [facility] -acetaminop 6-23 06-[address] [facility] ([facility]) 00:00: 04:59 [facility] 5-325 mg 00 :00 every 6 l per tablet (six) hours as needed for moderate pain or severe pain for up to 2 days .acute pain. Max Daily Amount: 4 tablets HYDROcodone 2021-0 2021- No 1{tbl} Q6H Take 1 [facility] -acetaminop 6-23 06-[address] [facility] ([facility]) 00:00: 04:59 [facility] 5-325 mg 00 :00 every 6 l per tablet (six) hours as needed for moderate pain or severe pain for up to 2 days .acute pain. Max Daily Amount: 4 tablets HYDROcodone 2021-0 2021- No 1{tbl} Q6H Take 1 [facility] -acetaminop 6-23 06-[address] [facility] ([facility]) 00:00: 04:59 [facility] 5-325 mg 00 :00 every 6 l per tablet (six) hours as needed for moderate pain or severe pain for up to 2 days .acute pain. Max Daily Amount: 4 tablets HYDROcodone 2-0 2021- No 1{tbl} Q6H Take 1 [facility] -acetaminop 6-23 06-[address] [facility] ([facility]) 00:00: 04:59 [facility] 5-325 mg 00 :00 every 6 l per tablet (six) hours as needed for moderate pain or severe pain for up to 2 days .acute pain. Max Daily Amount: 4 tablets HYDROcodone 2021-0 2021- No 1{tbl} Q6H Take 1 [facility] -acetaminop 6-23 06-[address] [facility] ([facility]) 00:00: 04:59 [facility] 5-325 mg 00 :00 every 6 l per tablet (six) hours as needed for moderate pain or severe pain for up to 2 days .acute pain. Max Daily Amount: 4 tablets HYDROcodone 2021-0 2021- 1{tbl} Q6H Take 1 [facility] -acetaminop 6-23 06-[address] [facility] ([facility]) 00:00: 04:59 [facility] 5-325 mg 00 :00 every 6 l per tablet (six) hours as needed for moderate pain or severe pain for up to 2 days .acute pain. Max Daily Amount: 4 tablets HYDROcodone 2021-0 2021- No 1{tbl} Q6H Take 1 [facility] -acetaminop 6-21 06-[address] [facility] ([facility]) 00:00: 00:00 [facility] 5-325 mg 00 :00 every 6 l per tablet (six) hours as needed for moderate pain or severe pain for up to 2 days .acute pain. Max Daily Amount: 4 tablets HYDROcodone 2-0 2021- No [id number] 1{tbl} Q6H Take 1 [facility] -acetaminop 6-21 06-[address] [facility] ([facility]) 00:00: 00:00 [facility] 5-325 mg 00 :00 every 6 l per tablet (six) hours as needed for moderate pain or severe pain for up to 2 days .acute pain. Max Daily Amount: 4 tablets HYDROcodone 2021-0 2021- No [id number] 1{tbl} Q6H Take 1 [facility] -acetaminop 6-21 06-[address] [facility] ([facility]) 00:00: 00:00 [facility] 5-325 mg 00 :00 every 6 l per tablet (six) hours as needed for moderate pain or severe pain for up to 2 days .acute pain. Max Daily Amount: 4 tablets HYDROcodone 2022-0 2022- No [id number] 1{tbl} Q6H Take 1 [facility] -acetaminop 6-21 06-[address] [facility] ([facility]) 00:00: 00:00 [facility]-325 mg 00 :00 every 6 l per tablet (six) hours as needed for moderate pain or severe pain for up to 2 days .acute pain. Max Daily Amount: 4 tablets HYDROcodone 2022-0 2- No [id number] 1{tbl} Q6H Take 1 [facility] -acetaminop 6-21 06-[address] [facility] ([facility]) 00:00: 00:00 [facility]-325 mg 00 :00 every 6 l per tablet (six) hours as needed for moderate pain or severe pain for up to 2 days .acute pain. Max Daily Amount: 4 tablets HYDROcodone 2022-0 2- No [id number] 1{tbl} Q6H Take 1 [facility] -acetaminop 6-21 06-[address] [facility] ([facility]) 00:00: 00:00 [facility] 5-325 mg 00 :00 every 6 l per tablet (six) hours as needed for moderate pain or severe pain for up to 2 days .acute pain. Max Daily Amount: 4 tablets HYDROcodone 2022-0 2021- No [id number] 1{tbl} Q6H Take 1 [facility] -acetaminop 6-21 06-[address] [facility] ([facility]) 00:00: 00:00 [facility]-325 mg 00 :00 every 6 l per tablet (six) hours as needed for moderate pain or severe pain for up to 2 days .acute pain. Max Daily Amount: 4 tablets HYDROcodone 2022-0 2- No [id number] 1{tbl} Q6H Take 1 [facility] -acetaminop 6-21 06-[address] [facility] ([facility]) 00:00: 00:00 [facility] 5-325 mg 00 :00 every 6 l per tablet (six) hours as needed for moderate pain or severe pain for up to 2 days .acute pain. Max Daily Amount: 4 tablets HYDROcodone 2-0 2021- No [id number] 1{tbl} Q6H Take 1 [facility] -acetaminop 6-21 06-[address] [facility] ([facility]) 00:00: 00:00 [facility]-325 mg 00 :00 every 6 l per tablet (six) hours as needed for moderate pain or severe pain for up to 2 days .acute pain. Max Daily Amount: 4 tablets HYDROcodone 2021-0 2021- No [id number] 1{tbl} Q6H Take 1 [facility] -acetaminop 6-21 06-[address] [facility] ([facility]) 00:00: 00:00 [facility]-325 mg 00 :00 every 6 l per tablet (six) hours as needed for moderate pain or severe pain for up to 2 days .acute pain. Max Daily Amount: 4 tablets HYDROcodone 2021-0 2021- No [id number] 1{tbl} Q6H Take 1 [facility] -acetaminop 6-21 06-[address] [facility] ([facility]) 00:00: 00:00 [facility]-325 mg 00 :00 every 6 l per tablet (six) hours as needed for moderate pain or severe pain for up to 2 days .acute pain. Max Daily Amount: 4 tablets HYDROcodone 2021-0 2021- 1{tbl} Q6H Take 1 [facility] -acetaminop 6-21 06-[address] [facility] ([facility]) 00:00: 00:00 [facility] 5-325 mg 00 :00 every 6 l per tablet (six) hours as needed for moderate pain or severe pain for up to 2 days .acute pain. Max Daily Amount: 4 tablets HYDROcodone 2-0 2021- No [id number] 1{tbl} Q6H Take 1 [facility] -acetaminop 6-21 06-[address] [facility] ([facility]) 00:00: 00:00 [facility]-325 mg 00 :00 every 6 l per tablet (six) hours as needed for moderate pain or severe pain for up to 2 days .acute pain. Max Daily Amount: 4 tablets HYDROcodone 2022-0 2022- No [id number] 1{tbl} Q6H Take 1 [facility] -acetaminop 6-21 06-[address] [facility] ([facility]) 00:00: 00:00 [facility] 5-325 mg 00 :00 every 6 l per tablet (six) hours as needed for moderate pain or severe pain for up to 2 days .acute pain. Max Daily Amount: 4 tablets HYDROcodone 2021-0 1{tbl} Q6H Take 1 [facility] -acetaminop 6-21 06-[address] [facility] ([facility]) 00:00: 00:00 [facility] 5-325 mg 00 :00 every 6 l per tablet (six) hours as needed for moderate pain or severe pain for up to 2 days .acute pain. Max Daily Amount: 4 tablets HYDROcodone 2021-0 1{tbl} Q6H Take 1 [facility] -acetaminop 6-21 06-[address] [facility] ([facility]) 00:00: 00:00 [facility] 5-325 mg 00 :00 every 6 l per tablet (six) hours as needed for moderate pain or severe pain for up to 2 days .acute pain. Max Daily Amount: 4 tablets HYDROcodone 2021- 1{tbl} Q6H Take 1 [facility] -acetaminop 6-21 06-[address] [facility] ([facility]) 00:00: 00:00 [facility]-325 mg 00 :00 every 6 l per tablet (six) hours as needed for moderate pain or severe pain for up to 2 days .acute pain. Max Daily Amount: 4 tablets HYDROcodone 2021-0 1{tbl} Q6H Take 1 [facility] -acetaminop 6-21 06-[address] [facility] ([facility]) 00:00: 00:00 [facility]-325 mg 00 :00 every 6 l per tablet (six) hours as needed for moderate pain or severe pain for up to 2 days .acute pain. Max Daily Amount: 4 tablets HYDROcodone 2021-0 1{tbl} Q6H Take 1 [facility] -acetaminop 6-21 06-[address] [facility] ([facility]) 00:00: 00:00 [facility] 5-325 mg 00 :00 every 6 l per tablet (six) hours as needed for moderate pain or severe pain for up to 2 days .acute pain. Max Daily Amount: 4 tablets HYDROcodone 2022-0 2021- No [id number] 1{tbl} Q6H Take 1 [facility] -acetaminop 6-21 06-[address] [facility] ([facility]) 00:00: 00:00 [facility]-325 mg 00 :00 every 6 l per tablet (six) hours as needed for moderate pain or severe pain for up to 2 days .acute pain. Max Daily Amount: 4 tablets HYDROcodone 2-0 2021- No [id number] 1{tbl} Q6H Take 1 [facility] -acetaminop 6-21 06-[address] [facility] ([facility]) 00:00: 00:00 [facility]-325 mg 00 :00 every 6 l per tablet (six) hours as needed for moderate pain or severe pain for up to 2 days .acute pain. Max Daily Amount: 4 tablets HYDROcodone 2-0 2021- No [id number] 1{tbl} Q6H Take 1 [facility] -acetaminop 6-21 06-[address] [facility] ([facility]) 00:00: 00:00 [facility] 5-325 mg 00 :00 every 6 l per tablet (six) hours as needed for moderate pain or severe pain for up to 2 days .acute pain. Max Daily Amount: 4 tablets HYDROcodone 2-0 2021- No [id number] 1{tbl} Q6H Take 1 [facility] -acetaminop 6-21 06-[address] [facility] ([facility]) 00:00: 00:00 [facility] 5-325 mg 00 :00 every 6 l per tablet (six) hours as needed for moderate pain or severe pain for up to 2 days .acute pain. Max Daily Amount: 4 tablets HYDROcodone 2022-0 2021- No [id number] 1{tbl} Q6H Take 1 [facility] -acetaminop 6-21 06-[address] [facility] ([facility]) 00:00: 00:00 [facility] 5-325 mg 00 :00 every 6 l per tablet (six) hours as needed for moderate pain or severe pain for up to 2 days .acute pain. Max Daily Amount: 4 tablets HYDROcodone 2022-0 2021- No 1{tbl} Q6H Take 1 [facility] -acetaminop 6-21 06-[address] [facility] ([facility]) 00:00: 00:00 [facility]-325 mg 00 :00 every 6 l per tablet (six) hours as needed for moderate pain or severe pain for up to 2 days .acute pain. Max Daily Amount: 4 tablets HYDROcodone 2021-0 2021- No 1{tbl} Q6H Take 1 [facility] -acetaminop 6-21 06-[address] [facility] ([facility]) 00:00: 00:00 [facility] 5-325 mg 00 :00 every 6 l per tablet (six) hours as needed for moderate pain or severe pain for up to 2 days .acute pain. Max Daily Amount: 4 tablets HYDROcodone 2021-0 2021- 1{tbl} Q6H Take 1 [facility] -acetaminop 6-21 06-[address] [facility] ([facility]) 00:00: 00:00 [facility] 5-325 mg 00 :00 every 6 l per tablet (six) hours as needed for moderate pain or severe pain for up to 2 days .acute pain. Max Daily Amount: 4 tablets HYDROcodone 2021-0 2021- No 1{tbl} Q6H Take 1 [facility] -acetaminop 6-21 06-[address] [facility] ([facility]) 00:00: 00:00 [facility] 5-325 mg 00 :00 every 6 l per tablet (six) hours as needed for moderate pain or severe pain for up to 2 days .acute pain. Max Daily Amount: 4 tablets HYDROcodone 2021-0 2021- No 1{tbl} Q6H Take 1 [facility] -acetaminop 6-21 06-[address] [facility] ([facility]) 00:00: 00:00 [facility]-325 mg [...] DAILY WITH MEALS meclizine 2021- No 25mg [id number] Take 1 [facility] ([facility]) 5-17 06-10 [id number] tablet (25 st 25 mg 00:00: 00:00 3D mg total) [facility] 00 :00 by mouth 3 l (three) times a day as needed for dizziness for up to 30 days. meclizine 2022-0 2022- No 25mg Q.[id number] Take 1 [facility] ([facility]) 08-26-10 [id number] tablet (25 st 25 mg 00:00: 00:00 3D mg total) [facility] a tablet 00 :00 by mouth 3 l (three) times a day as needed for dizziness for up to 30 days. meclizine 2021-0 2022- No 25mg Q.80452526 Take 1 [facility] ([facility]) 08-26- [id number] tablet (25 st 25 mg 00:00: 00:00 3D mg total) [facility] tablet 00 :00 by mouth 3 l (three) times a day as needed for dizziness for up to 30 days. meclizine 2021-0 202- No 25mg Q.[id number] Take 1 [facility] ([facility]) 08-26- [id number] tablet (25 st 25 mg 00:00: 00:00 3D mg total) [facility] tablet 00 :00 by mouth 3 l (three) times a day as needed for dizziness for up to 30 days. meclizine 2021-0 2022- No 25mg Q.15641823 Take 1 [facility] ([facility]) 08-26- [id number] tablet (25 st 25 mg 00:00: 00:00 3D mg total) [facility] a tablet 00 :00 by mouth 3 l (three) times a day as needed for dizziness for up to 30 days. meclizine 2022-0 2022- No 25mg Q.[id number] Take 1 [facility] ([facility]) 08-26-10 [id number] tablet (25 st 25 mg 00:00: 00:00 3D mg total) [facility] tablet 00 :00 by mouth 3 l (three) times a day as needed for dizziness for up to 30 days. meclizine 2022-0 2022- No 25mg Q.[id number] Take 1 [facility] ([facility]) 08-26- [id number] tablet (25 st 25 mg 00:00: 00:00 3D mg total) [facility] tablet 00 :00 by mouth 3 l (three) times a day as needed for dizziness for up to 30 days. meclizine 2021-0 2021- No 25mg Q.[id number] Take 1 [facility] ([facility]) 17 -10 [id number] tablet (25 st 25 mg 00:00: 00:00 3D mg total) [facility] a tablet 00 :00 by mouth 3 l (three) times a day as needed for dizziness for up to 30 days. meclizine 2021-0 2021- No 25mg Q.[id number] Take 1 [facility] ([facility]) 08-26- [id number] tablet (25 st 25 mg 00:00: 00:00 3D mg total) [facility] tablet 00 :00 by mouth 3 l (three) times a day as needed for dizziness for up to 30 days. meclizine 2021-0 2021- No 25mg Q.[id number] Take 1 [facility] ([facility]) 08-26 [id number] tablet (25 st 25 mg 00:00: 00:00 3D mg total) [facility] tablet 00 :00 by mouth 3 l (three) times a day as needed for dizziness for up to 30 days. pregabalin 2021-0 202- No 50mg Q.5D Take 1 [facility] (Lyrica) 50 08-14- capsule [facility] capsule 00:00: 00:00 (50 [facility] 00 :00 total) by l mouth 2 (two) times a day for 60 days. pregabalin 2022-0 202- No 50mg Q.5D Take 1 [facility] (Lyrica) 50 08-14-[address] [facility] capsule 00:00: 00:00 (50 mg [facility] 00 :00 total) by l mouth 2 (two) times a day for 60 days. pregabalin 2022-0 2022- No 50mg Q.5D Take 1 [facility] (Lyrica) 50 -08 15- capsule [facility] capsule 00:00: 00:00 (50 [...] (two) [place] [id number] 1{tbl} Q6H Take 1-2 [facility] en-codeine 4-27 05-[address] (TYLENOL 00:00: 04:59 [facility] WITH 00 :00 every 6 l CODEINE #3) (six) 300-30 mg hours as per tablet needed for moderate pain for up to 5 days .acute pain. acetaminoph 2021- No [id number] 1{tbl} Q6H Take 1-2 [facility] en-codeine 4-27 [...] 5 days .acute pain. acetamin[place] 2021- [place] [id number] 1{tbl} Q6H Take 1-2 [facility] en-codeine 08-06 05-[address] (TYLENOL 00:00: 04:59 [facility] WITH 00 :00 every 6 l CODEINE #3) (six) 300-30 mg hours as per tablet needed for moderate pain for up to 5 days .acute pain. amoxicillin 2021- No [id number] 500mg Q.5D Take 1 [facility] ([facility]OXIL) 07-[address] 500 MG 00:00: 04:59 (500 mg [facility]osp[facility] tablet 00 :00 total) by l mouth 2 (two) times a day for 7 days. amoxicillin 2021- No [id number] 500mg Q.5D Take 1 [facility] ([facility]OXIL) 07-[address] 500 MG 00:00: 04:59 (500 mg [facility]osp[facility] tablet 00 :00 total) by l mouth 2 (two) times a day for 7 days. amoxicillin 2021- No [id number] 500mg Q.5D Take 1 [facility] ([facility]OXIL) 07-[address] 500 MG 00:00: 04:59 (500 mg [facility]osp[facility] tablet 00 :00 total) by l mouth 2 (two) times a day for 7 days. amoxicillin 2021- No [id number] 500mg Q.5D Take 1 [facility] ([facility]OXIL) 07-[address] 500 MG 00:00: 04:59 (500 mg [facility]osp[facility] tablet 00 :00 total) by l mouth 2 (two) times a day for 7 days. amoxicillin 2021- No [id number] 500mg Q.5D Take 1 [facility] ([facility]OX[facility]) 07-[address] 500 MG 00:00: 04:59 (500 mg [facility] tablet 00 :00 total) by l mouth 2 (two) times a day for 7 days. amoxicillin 2021- No [id number] 500mg Q.5D Take 1 [facility] ([facility]) 07-[address] 500 MG 00:00: 04:59 (500 mg [facility] tablet 00 :00 total) by l mouth 2 (two) times a day for 7 days. amoxicillin 2021- No [id number] 500mg Q.5D Take 1 [facility] (AMOXIL) 14 -[address] 500 MG 00:00: 04:59 (500 mg [facility] tablet 00 :00 total) by l mouth 2 (two) times a day for 7 days. amoxicillin 2021- No [id number] 500mg Q.5D Take 1 [facility] (AMOXIL) 07-24-22 [...] 00 :00 by mouth l daily. naproxen 2021-2- No 500mg Q.5D Take 1 [facility] di [...] Take 1 [facility] (ADVIL) 800 3-21 -[address] [facility] tablet 00:00: 04:59 (800 [...] hours for 30 days. amoxicillin 2021- No [id number] 500mg Q.5D Take 1 [facility] (AMOXIL) 06-18-[address] 500 MG 00:00: 04:59 (500 mg [facility]osp[facility] tablet 00 :00 total) by l mouth in the morning and 1 tablet (500 mg total) before bedtime. Do all this for 7 days. amoxicillin 2021- No [id number] 500mg Q.5D Take 1 [facility] ([facility]OXIL) 06-[address] 500 MG 00:00: 04:59 (500 mg [facility]osp[facility] tablet 00 :00 total) by l mouth in the morning and 1 tablet (500 mg total) before bedtime. Do all this for 7 days. amoxicillin No [id number] 500mg Q.5D Take 1 [facility] ([facility]OXIL) 06-[address] 500 MG 00:00: 04:59 (500 mg [facility]osp[facility] tablet 00 :00 total) by l mouth in the morning and 1 tablet (500 mg total) before bedtime. Do all this for 7 days. amoxicillin 2021- No [id number] 500mg Q.5D Take 1 [facility] ([facility]OXIL) 06-[address] 500 MG 00:00: 04:59 (500 mg [facility]osp[facility] tablet 00 :00 total) by l mouth in the morning and 1 tablet (500 mg total) before bedtime. Do all this for 7 days. amoxicillin 2021- No [id number] 500mg Q.5D Take 1 [facility] ([facility]OXIL) 06-[address] 500 MG 00:00: 04:59 (500 mg [facility]osp[facility] tablet 00 :00 total) by l mouth in the morning and 1 tablet (500 mg total) before bedtime. Do all this for 7 days. amoxicillin 2021- No [id number] 500mg Q.5D Take 1 [facility] ([facility]OXIL) 06-[address] 500 MG 00:00: 04:59 (500 mg [facility] tablet 00 :00 total) by l mouth in the morning and 1 tablet (500 mg total) before bedtime. Do all this for 7 days. amoxicillin 2021- No [id number] 500mg Q.5D Take 1 [facility] ([facility]OXIL) 06-[address] 500 MG 00:00: 04:59 (500 mg [facility] tablet 00 :00 total) by l mouth in the morning and 1 tablet (500 mg total) before bedtime. Do all this for 7 days. amoxicillin 2021- No [id number] 500mg Q.5D Take 1 [facility] (AMOXIL) 06-[address] 500 MG 00:00: 04:59 (500 mg [facility]osp[facility] tablet 00 :00 total) by l mouth in the morning and 1 tablet (500 mg total) before bedtime. Do all this for 7 days. naproxen 2-0 2022- No 500mg Q.5D Take [...] [facility]ospita tablet 00 :00 l HYDROcodone 2-0 2021- No [id number] 1{tbl} Q6H Take 1 [facility] -acetaminop 05-[address] [facility] ([facility]) 00:00: 05:59 [facility] 5-325 mg 00 :00 every 6 l per tablet (six) hours as needed for moderate pain for up to 5 days .acute pain. Max Daily Amount: 4 tablets HYDROcodone 2022-0 2022- No [id number] 1{tbl} Q6H Take 1 [facility] -acetaminop 05-[address] [facility] ([facility]) 00:00: 05:59 [facility] 5-325 mg 00 :00 every 6 l per tablet (six) hours as needed for moderate pain for up to 5 days .acute pain. Max Daily Amount: 4 tablets HYDROcodone 2021-0 1{tbl} Q6H Take 1 [facility] -acetaminop 05-[address] [facility] (PLATO) 00:00: 05:59 [facility] 5-325 mg 00 :00 every 6 l per tablet (six) hours as needed for moderate pain for up to 5 days .acute pain. Max Daily Amount: 4 tablets HYDROcodone 2021- 1{tbl} Q6H Take 1 [facility] -acetaminop 05-[address] [facility] (PLATO) 00:00: 05:59 [facility] 5-325 mg 00 :00 every 6 l per tablet (six) hours as needed for moderate pain for up to 5 days .acute pain. Max Daily Amount: 4 tablets HYDROcodone 2021-0 1{tbl} Q6H Take 1 [facility] -acetaminop 05-[address] [facility] (PLATO) 00:00: 05:59 [facility] 5-325 mg 00 :00 every 6 l per tablet (six) hours as needed for moderate pain for up to 5 days .acute pain. Max Daily Amount: 4 tablets HYDROcodone 2021- 1{tbl} Q6H Take 1 [facility] -acetaminop 05-[address] [facility] (PLATO) 00:00: 05:59 [facility] 5-325 mg 00 :00 every 6 l per tablet (six) hours as needed for moderate pain for up to 5 days .acute pain. Max Daily Amount: 4 tablets acetaminoph 2021- 1{tbl} Q6H Take 1-2 [facility] [...] to 15 days [place] [id number] 1{tbl} Q6H Take 1-2 [facility] en-codeine 05-[address] (TYLENOL 00:00: 00:00 [facility] WITH 00 :00 every 6 l CODEINE #3) (six) 300-30 mg hours as per tablet needed for moderate pain for up to 15 days .[place]. [place] [id number] 1{tbl} Q6H Take 1-2 [facility]-codeine 05-[address] (TYLENOL 00:00: 00:00 [facility] WITH 00 :00 every 6 l CODEINE #3) (six) 300-30 mg hours as per tablet needed for moderate pain for up to 15 days .[place] [id number] 1{tbl} Q6H Take 1-2 [facility] 05-[address] (TYLENOL 00:00: 00:00 [facility] WITH 00 :00 every 6 l CODEINE #3) (six) 300-30 mg hours as per tablet needed for moderate pain for up to 15 days .[place]. [place] [id number] 1{tbl} Q6H Take 1-2 [facility] en-codeine 05-04 [...] pain for up to 30 doses. acetaminoph [id number] 1{tbl} Q6H Take 1 [facility] 04-[address] (TYLENOL 00:00: 05:59 [facility] WITH 00 :00 every 6 l CODEINE #3) (six) 300-30 mg hours as per tablet needed for severe pain for up to 5 days .acute pain. acetaminoph [id number] 1{tbl} Q6H Take 1 [facility] en-[facility]ine 04-[address] (TYLENOL 00:00: 05:59 [facility] WITH 00 :00 every 6 l CODEINE #3) (six) 300-30 mg hours as per tablet needed for severe pain for up to 5 days .acute pain. acetaminoph [id number] 1{tbl} Q6H Take 1 [facility] en-codeine 04-12 [...] times daily as needed for Pain. traMADoL 2019- Yes S/P 50mg Take 1 Mahmood (ULTRAM) [...] 1 Maria rris (LIORESAL) 9-24 tablet by [facility] 10 mg 00:00: mouth 2 tablet 00 times daily as needed (muscle spasms) STOP cyclobenza kasia (FLEXERIL) 10 mg tablet. baclofen 0 Yes Neck pain 10mg Take 1 Maria rris (LIORESAL) 9-24 tablet by [facility] 10 mg 00:00: mouth 2 tablet 00 times daily as needed (muscle spasms) STOP cyclobenza kasia (FLEXERIL) 10 mg tablet. baclofen 2019-0 Yes Neck pain 10mg Take 1 Maria r[facility] (LIORESAL) 9-24 tablet by [facility] 10 mg 00:00: mouth 2 tablet 00 times daily as needed (muscle spasms) STOP cyclobenza kasia (FLEXERIL) 10 mg tablet. baclofen 2019-0 Yes Neck pain 10mg Take 1 Maria rris (LIORESAL) 9-24 tablet by [facility] 10 mg 00:00: mouth 2 tablet 00 times daily as needed (muscle spasms) STOP cyclobenza kasia (FLEXERIL) 10 mg tablet. baclofen 2019-0 Yes Neck pain 10mg Take 1 Maria rris (LIORESAL) 9-24 tablet by [facility] 10 mg 00:00: mouth 2 tablet 00 times daily as needed (muscle spasms) STOP cyclobenza kasia (FLEXERIL) 10 mg tablet. baclofen 2019-0 Yes Neck pain 10mg Take 1 [facility] (LIORESAL) 9-24 tablet by [facility] 10 mg 00:00: mouth 2 tablet 00 times daily as needed (muscle spasms) STOP cyclobenza kasia (FLEXERIL) 10 mg tablet. baclofen 2020-0 Yes Neck pain 10mg Take 1 [facility]ris (LIORESAL) 9-24 tablet by [facility] 10 mg 00:00: mouth 2 tablet 00 times daily as needed (muscle spasms) STOP cyclobenza kasia (FLEXERIL) 10 mg tablet. baclofen 2020-0 Yes Neck pain 10mg Take 1 Maria rris (LIORESAL) 9-24 tablet by [facility] 10 mg 00:00: mouth 2 tablet 00 times daily as needed (muscle spasms) STOP cyclobenza kasia (FLEXERIL) 10 mg tablet. baclofen 2020-0 Yes Neck pain 10mg Take 1 Maria rris (LIORESAL) 9-24 tablet by [facility] 10 mg 00:00: mouth 2 tablet 00 times daily as needed (muscle spasms) STOP cyclobenza kasia (FLEXERIL) 10 mg tablet. baclofen 2020-0 Yes Neck pain 10mg Take 1 Maria rris (LIORESAL) 9-24 tablet by [facility] 10 mg 00:00: mouth 2 tablet 00 times daily as needed (muscle spasms) STOP cyclobenza kasia (FLEXERIL) 10 mg tablet. baclofen 2020-0 Yes Neck pain 10mg Take 1 Maria rris (LIORESAL) 9-24 tablet by [facility] 10 mg 00:00: mouth 2 tablet 00 times daily as needed (muscle spasms) STOP cyclobenza kasia (FLEXERIL) 10 mg tablet. baclofen 2020-0 Yes Neck pain 10mg Take 1 Maria rris (LIORESAL) 9-24 tablet by [facility] 10 mg 00:00: mouth 2 tablet 00 times daily as needed (muscle spasms) STOP cyclobenza kasia (FLEXERIL) 10 mg tablet. baclofen 2020-0 Yes Neck pain 10mg Take 1 Maria rris (LIORESAL) 9-24 tablet by [facility] 10 mg 00:00: mouth 2 tablet 00 times daily as needed (muscle spasms) STOP cyclobenza kasia (FLEXERIL) 10 mg tablet. baclofen 2020-0 Yes Neck pain 10mg Take 1 Maria rris (LIORESAL) 9-24 tablet by [facility] 10 mg 00:00: mouth 2 tablet 00 times daily as needed (muscle spasms) STOP cyclobenza kasia (FLEXERIL) 10 mg tablet. baclofen 2020-0 Yes Neck pain 10mg Take 1 Maria rris (LIORESAL) 9-24 tablet by [facility] 10 mg 00:00: mouth 2 tablet 00 times daily as needed (muscle spasms) STOP cyclobenza kasia (FLEXERIL) 10 mg tablet. baclofen 2020-0 Yes Neck pain 10mg Take 1 Maria rris (LIORESAL) 9-24 tablet by [facility] 10 mg 00:00: mouth 2 tablet 00 times daily as needed (muscle spasms) STOP cyclobenza kasia (FLEXERIL) 10 mg tablet. baclofen 2020-0 Yes Neck pain 10mg Take 1 Maria rris (LIORESAL) 9-24 tablet by [facility] 10 mg 00:00: mouth [...] varenicline 2020-0 Yes Encounter Start [facility] (CHANTIX) 6- for smoking taking H ealth [...] 1 Tom ris (MOTRIN) 4-13 tablet by [facility] 600 mg 00:00: mouth tablet 00 [...] mouth. Health VITAMIN OR) 08:09: 11 sulfamethox 2018- Yes 1{tbl} Q.5D Take 1 Maria rris azole-trime 9-24 tablet by [facility] thoprim 08:09: mouth 2 (BACTRIM 11 times DS) 800-160 daily. mg per tablet MULTIVITAMI 2019-0 Yes Take by Tom ris N (DAILY 9-24 mouth. Health VITAMIN OR) 08:09: 11 sulfamethox 2019-0 Yes 1{tbl} Q.5D Take 1 Maria rris azole-trime 9-24 tablet by [facility] thoprim 08:09: mouth 2 (BACTRIM 11 times DS) 800-160 daily. mg per tablet MULTIVITAMI 2019-0 Yes Take by Tom ris N (DAILY 9-24 mouth. Health VITAMIN OR) 08:09: 11 sulfamethox 2019-0 Yes 1{tbl} Q.5D Take 1 Maria rris azole-trime 9-24 tablet by [facility] thoprim 08:09: mouth 2 (BACTRIM 11 times DS) 800-160 daily. mg per tablet MULTIVITAMI 2019-0 Yes Take by Tom ris N (DAILY 9-24 mouth. Health VITAMIN OR) 08:09: 11 sulfamethox 2019-0 Yes 1{tbl} Q.5D Take 1 Maria rris azole-trime 9-24 tablet by [facility] thoprim 08:09: mouth 2 (BACTRIM 11 times DS) 800-160 daily. mg per tablet MULTIVITAMI 2019-0 Yes Take by Tom ris N (DAILY 9-24 mouth. Health VITAMIN OR) 08:09: 11 sulfamethox 2019-0 Yes 1{tbl} Q.5D Take 1 Maria rris azole-trime 9-24 tablet by [facility] thoprim 08:09: mouth 2 (BACTRIM 11 times DS) 800-160 daily. mg per tablet MULTIVITAMI 2019-0 Yes Take by Tom ris N (DAILY 9-24 mouth. Health VITAMIN OR) 08:09: 11 sulfamethox 2019-0 Yes 1{tbl} Q.5D Take 1 Maria rris azole-trime 9-24 tablet by [facility] thoprim 08:09: mouth 2 (BACTRIM 11 times DS) 800-160 daily. mg per tablet MULTIVITAMI 2019-0 Yes Take by Tom ris N (DAILY 9-24 mouth. Health VITAMIN OR) 08:09: 11 sulfamethox 2019-0 Yes 1{tbl} Q.5D Take 1 Maria rris azole-trime 9-24 tablet by [facility] thoprim 08:09: mouth 2 (BACTRIM 11 times DS) 800-160 daily. mg per tablet MULTIVITAMI 2018-0 Yes Take by [facility] N (DAILY 9-24 mouth. Health VITAMIN OR) 08:09: 11 sulfamethox 2018-0 Yes 1{tbl} Q.5D Take 1 Maria rris azole-trime 9-24 tablet by [facility] thoprim 08:09: mouth 2 (BACTRIM 11 times [...] Immunizations Ordered Filled Immunization Date Status Comments [facility] e Immunization Name Name FLUCELVAX QUAD PF 2021-02-17 Completed [...] QUAD PF 2021-02-[address] 00:00:00 [facility] PFIZER COVID-19 2020-08-05 Completed [facility] VACC[facility] 00:00:00 [facility] PFIZER COVID-19 2020-08-05 Completed [facility] VACCIN[facility] 00:00:00 [facility] PFIZER COVID-19 2020-08-05 Completed [facility] VACCINATION 00:00:00 [facility] PFIZER COVID-19 2020-08-05 Completed [facility] VACCINATION 00:00:00 [facility] PFIZER COVID-19 2020-08-05 Completed [facility] VACCINATION 00:00:00 [facility] PFIZER COVID-19 2020-08-05 Completed [facility] VACCINATION 00:00:00 [facility] PFIZER COVID-19 2020-08-05 Completed [facility] VACCINATION 00:00:00 [facility] PFIZER COVID-19 2020-08-05 Completed [facility] VACCINATION 00:00:00 [facility] PFIZER COVID-19 2020-08-05 Completed [facility] VACCINATION 00:00:00 [facility] PFIZER COVID-19 2020-08-05 Completed [facility] VACCINATION 00:00:00 [facility] KELLY COVID-19 2020-08-05 Completed [facility] VACCINATION 00:00:00 [facility] KELLY COVID-19 2020-08-05 Completed [facility] VACCINATION 00:00:00 [facility] KELLY COVID-19 2020-08-05 Completed [facility] VACCINATION 00:00:00 [facility] KELLY COVID-19 2020-08-05 Completed [facility] VACCINATION 00:00:00 [facility] KELLY COVID-19 2020-07-08 Completed [facility] VACCINATION 00:00:00 [facility] KELLY COVID-Nadja 2020-07-08 Completed [facility] VACCINATION 00:00:00 [facility] KELLY COVID-Nadja 2020-07-08 Completed [facility] VACCINATION 00:00:00 [facility] KELLY RIOSID-Nadja 2020-07-08 Completed [facility] VACCINATION 00:00:00 [facility] KELLY RIOSID-Nadja 2020-07-08 Completed [facility] VACCINATION 00:00:00 [facility] KELLY COVID-Nadja 2020-07-08 Completed [facility] VACCINATION 00:00:00 [facility] KELLY COVID-Nadja 2020-07-08 Completed [facility] VACCINATION 00:00:00 [facility] KELLY COVID-Nadja 2020-07-08 Completed [facility] VACCINATION 00:00:00 [facility] KELLY COVID-Nadja 2020-07-08 Completed [facility] VACCINATION 00:00:00 [facility] KELLY COVID-Nadja 2020-07-08 Completed [facility] VACCINATION 00:00:00 [facility] KELLY COVID-Nadja 2020-07-08 Completed [facility] VACCINATION 00:00:00 [facility] KELLY COVID-Nadja 2020-07-08 Completed [facility] VACCINATION 00:00:00 [facility] KELLY COVID-19 2020-07-08 Completed [facility] VACCINATION 00:00:00 [facility] PFIZER COVID-19 2020-07-08 Completed [facility] VACCINATION 00:00:00 [facility] Influenza, 2020-03-12 Completed [facility] Vaccine<FLUCELVAX>( 00:00:00 Multi-Dose) Tdap (Tetanus 2020-03-12 Completed [facility] th Toxoid, Reduced 00:00:00 Diphtheria Toxoid And Acellular Pertussis, Absorbed) Influenza, 2020-03-12 Completed [facility] Vaccine<FLUCELVAX>( 00:00:00 Multi-Dose) Tdap (Tetanus 2020-03-12 [...] 00:00:00 Multi-Dose) Tdap (Tetanus 2020-03-12 Completed [facility] th Toxoid, Reduced 00:00:00 Diphtheria Toxoid And Acellular Pertussis, Absorbed) Influenza, 2020-03-12 Completed [facility] Vaccine<FLUCELVAX>( 00:00:00 Multi-Dose) Tdap (Tetanus 2020-03-12 Completed [facility] th Toxoid, Reduced 00:00:00 Diphtheria Toxoid And Acellular Pertussis, Absorbed) Influenza, 2020-03-12 Completed [facility] Vaccine<FLUCELVAX>( 00:00:00 Multi-Dose) Tdap (Tetanus 2020-03-12 Completed [facility] th Toxoid, Reduced 00:00:00 Diphtheria Toxoid And Acellular Pertussis, Absorbed) Influenza, 2020-03-12 Completed [facility] Vaccine<FLUCELVAX>( 00:00:00 Multi-Dose) Tdap (Tetanus 2020-03-12 Completed [facility] th Toxoid, Reduced 00:00:00 Diphtheria Toxoid And Acellular Pertussis, Absorbed) Influenza, 2020-03-12 Completed [facility] Vaccine<FLUCELVAX>( 00:00:00 Multi-Dose) Tdap (Tetanus 2020-03-12 Completed [facility] th Toxoid, Reduced 00:00:00 Diphtheria Toxoid And Acellular Pertussis, Absorbed) Influenza, 2020-03-12 Completed [facility] Vaccine<FLUCELVAX>( 00:00:00 Multi-Dose) Tdap (Tetanus 2020-03-12 Completed [facility] th Toxoid, Reduced 00:00:00 Diphtheria Toxoid And Acellular Pertussis, Absorbed) Influenza, 2020-03-12 Completed [facility] Vaccine<FLUCELVAX>( 00:00:00 Multi-Dose) Tdap (Tetanus 2020-03-12 Completed [facility] th Toxoid, Reduced 00:00:00 Diphtheria Toxoid And Acellular Pertussis, Absorbed) Influenza, 2020-03-12 Completed [facility] Vaccine<FLUCELVAX>( 00:00:00 Multi-Dose) Tdap (Tetanus 2020-03-12 Completed [facility] th Toxoid, Reduced 00:00:00 Diphtheria Toxoid And Acellular Pertussis, Absorbed) Influenza, 2020-03-12 Completed [facility] Vaccine<FLUCELVAX>( 00:00:00 Multi-Dose) Tdap (Tetanus 2020-03-12 Completed [facility] th Toxoid, Reduced 00:00:00 Diphtheria Toxoid And Acellular Pertussis, Absorbed) Influenza, 2020-03-12 Completed [facility] Vaccine<FLUCELVAX>( 00:00:00 Multi-Dose) Tdap (Tetanus 2020-03-12 Completed [facility] th Toxoid, Reduced 00:00:00 Diphtheria Toxoid And Acellular Pertussis, Absorbed) Influenza, Unknown Completed [facility] Vaccine<FLUCELVAX>( Multi-Dose) Tdap (Tetanus Unknown Completed [facility] Toxoid, Reduced Diphtheria Toxoid And Acellular Pertussis, Absorbed) [facility] FLUCELVAX QUAD PF Unknown Completed [facility] COVID-19 Unknown Completed [facility] VACC[facility] COVID19 Unknown Completed [facility] FLUCELVAX QUAD PF Unknown Completed [facility] COVID-19 Unknown Com[facility] Influenza, Unknown Completed [facility] Vaccine<FLUCELVAX>( Multi-Dose) Tdap (Tetanus Unknown Completed [facility] th Toxoid, Reduced Diphtheria Toxoid And Acellular Pertussis, Absorbed) Influenza, Unknown Completed [facility] Vaccine<FLUCELVAX>( Multi-Dose) Tdap (Tetanus Unknown Completed [facility] th Toxoid, Reduced Diphtheria Toxoid And Acellular Pertussis, Absorbed) Vital Signs Vital Name Observation Time Observation Value Comments Source Systolic blood 2022-02-20 01:13:29 129 mm[Hg] [facility] pressure Diastolic blood 2022-02-20 01:13:29 67 mm[Hg] [facility] pressure Heart rate 2022-02-20 01:13:29 60 /min [facility] Respiratory rate 2022-02-20 01:13:29 18 /min [facility] Oxygen saturation in 2022-02-20 01:13:29 96 /min [facility] Arterial blood by Pulse oximetry Body height 2022-02-19 20:30:00 162.6 cm [facility] Body weight 2022-02-19 20:30:00 79.379 kg [facility] BMI 2022-02-19 20:30:00 30.04 kg/m2 [facility] Body temperature 2022-02-19 20:29:[address] [facility] pulse rate 2021-12-16 13:21:49 87 /min [facility] blood pressure, 2021-12-16 13:21:49 67 mm[Hg] [facility] diastolic Health blood pressure, 2021-12-16 13:21:49 132 mm[Hg] [facility] systolic Health pulse rate 2020-11-25 14:31:56 70 /[facility], 2020-11-25 14:31:56 74 mm[Hg] [facility] diastolic Health blood pressure, 2020-11-25 14:31:56 113 mm[Hg] [facility] systolic Health pulse rate 2020-11-25 13:39:38 70 /min [facility] blood pressure, 2020-11-25 13:39:38 74 mm[Hg] [facility] diastolic Health blood pressure, 2020-11-25 13:39:38 113 mm[Hg] [facility] Procedures Procedure Date / Time Performing Source Performed Clinician CT CHEST WO CONTRAST ABDOMEN WO 2022-02-20 Cristóbal Ovalle CONTRAST PELVIS WO CONTRAST 01:47:08 [facility] ECG ED PRELIMINARY INTERPRETATION 2022-02-20 Cristóbal Ovalle 01:34:[address] [facility] CBC WITH PLATELET AND DIFFERENTIAL 2022-02-19 Pa Manning [facility] 21:40:00 [facility] COMPREHENSIVE METABOLIC PANEL 2022-02-19 Alee Manning [facility]ist 21:40:00 [facility] HCG QUALITATIVE, SERUM SCREEN 2022-02-19 Alee Manning [facility] 21:40:00 Hospital ESTIMATED GFR 2022-02-19 Alee Manning [facility] 21:40:00 [facility] ECG 12-LEAD 2022-02-19 Alee Manning [facility] 20:46:22 Hospital URINE CULTURE 2022-02-19 Alee Manning 20:34:00 Hospital URINALYSIS SCREEN AND MICROSCOPY, 2022-02-19 Eulalio Manningist WITH REFLEX TO CULTURE 20:34:00 [facility] HEPATITIS B SURFACE ANTIGEN 2022-02-05 Eddie Farris Meth odist 15:30:00 [facility] HEPATITIS C ANTIBODY 2022-02-05 Eddie Farrisist 15:30:00 [facility] HIV 1/2 ANTIGEN/ANTIBODY, FOURTH 2022-02-05 Eddie Farris GENERATION, WITH REFLEXES 15:30:00 Hospit al HSV TYPE 1/2 COMBINED AB, IGM 2022-02-05 Eddie Farris Fl thodist 15:30:00 [facility] RPR WITH REFLEX TO TITER 2022-02-[address] 15:30:00 [facility] HEPATITIS C VIRUS (HCV), 2022-02-[address] QUANTITATIVE PCR 15:30:00 [facility] HIV 1/2 ANTIGEN/ANTIBODY, FOURTH 2022-02-05 Eddie Farris GENERATION, WITH REFLEXES 15:30:00 Hospit al ZZHSV 1 AND 2 SPECIFIC AB IGG 2022-02-05 Eddie Farris Fl [facility]odist 15:30:00 Hospital SURGICAL PATHOLOGY REQUEST 2021-12-26 Esthela Small [facility] 18:06:00 Hospital COLONOSCOPY 2021-12-26 Esthela Small [facility] 15:44:00 [facility] ESOPHAGOGASTRODUODENOSCOPY (EGD) 2021-12-26 Esthela Small [facility] 15:44:00 [facility] COVID-19 QUALITATIVE RT-PCR 2021-12-24 Esthela Small ethodist 12:41:00 Hospital THINPREP TIS AND HPV MRNA E6/E7 2021-12-18 Eddie Farris 18:34:00 [facility] ECG 12-LEAD 2021-11-28 Keith Carroll 15:26:34 [facility] TROPONIN T 2021-11-07 Zeyad Cohen 20:01:00 [facility] COVID-19 QUALITATIVE RT-PCR 2021-11-07 Zeyad Cohen odist 19:09:00 [facility] COVID-19 OMICRON VARIANT 2021-11-[address] QUALITATIVE RT-PCR 19:09:00 [facility] XR CHEST 2 VW 2021-11-07 Zeyad Cohen 18:51:38 [facility] ECG ED PRELIMINARY INTERPRETATION 2021-11-07 Karo Cohen 18:50:27 [facility] COMPREHENSIVE METABOLIC PANEL 2021-11-07 Zeyad Cohen Fl thodist 18:03:00 [facility] TROPONIN T 2021-11-07 Zeyad Cohen 18:03:00 [facility] CBC WITH PLATELET AND DIFFERENTIAL 2021-11-07 Ed Cohen 18:03:00 [facility] HCG QUALITATIVE, SERUM SCREEN 2021-11-07 Zeyad Cohen Fl thodist 18:03:00 [facility] ESTIMATED GFR 2021-11-07 Zeyad Cohen 18:03:00 [facility] ECG 12-LEAD 2021-11-07 OgLiborio henriquez [facility] 17:57:16 [facility] FL UGI W OR WO KUB 2021-11-03 Esthela Smallist 15:16:30 Hospital HEPATITIS C VIRUS (HCV), 2021-11-03 Esthela Small odniki QUANTITATIVE PCR 13:52:00 [facility] HEPATIC FUNCTION PANEL 2021-11-03 Esthela Small Method ist 13:52:00 Hospital XR CHEST 2 VW 2021-10-15 José Riderist 02:52:42 [facility] COMPREHENSIVE METABOLIC PANEL 2021-10-15 Mario Maher thodist 01:15:00 [facility] TROPONIN T 2021-10-15 Mario Maher 01:15:00 [facility] B NATRIURETIC PEPTIDE 2021-10-15 Mario Maher 01:15:00 [facility] CBC WITH PLATELET AND DIFFERENTIAL 2021-10-15 Marques Maher 01:15:00 [facility] PROTHROMBIN TIME WITH INR 2021-10-15 Mario Maher ist 01:15:00 [facility] PARTIAL THROMBOPLASTIN TIME (PTT) 2021-10-15 Mario Maher 01:15:00 [facility] ESTIMATED GFR 2021-10-15 Mario Maher 01:15:00 [facility] ECG 12-LEAD 2021-10-15 Mario Maher 00:33:[address] [facility] CT ANGIOGRAM PE CHEST 2021-10-12 [...] Hospital URINE CULTURE 2021-10-12 Rajinder Ordoñez 15:17:00 [facility] URINALYSIS SCREEN AND MICROSCOPY, 2021-10-12 Arslan Ordoñez WITH REFLEX TO CULTURE 15:17:00 [facility] HCG QUALITATIVE, URINE SCREEN 2021-10-12 Rajinder Ordoñez 15:17:00 [facility] ECG 12-LEAD 2021-10-12 Rajinder Ordoñez 14:48:50 [facility] AL AN ELECTIVE SUPRAGLOTTIC AIRWAY 2021-09-30 Ruddy Marie 12:10:00 Hospital DECOMPRESSION, ULNAR NERVE 2021-09-30 Rebecca Brownlee 12:06:00 [facility] COVID-19 QUALITATIVE RT-PCR 2021-09-26 Dulce Maria Pierre 14:23:00 [facility] PROTHROMBIN TIME WITH INR 2021-09-26 Antonio Pierre ist 14:23:00 [facility] PARTIAL THROMBOPLASTIN TIME (PTT) 2021-09-26 Keith Pierre 14:23:00 [facility] COMPREHENSIVE METABOLIC PANEL 2021-09-26 Me Gabby thodist 14:23:00 [facility] ESTIMATED GFR 2021-09-26 Rebecca Brownlee 14:23:00 [facility] HEMOGLOBIN A1C 2021-09-26 Rebecca Brownlee 14:23:00 [facility] CBC WITH PLATELET AND DIFFERENTIAL 2021-09-19 Lexie Esparza 07:10:00 Hospital THYROID STIMULATING HORMONE 2021-09-19 Peggy Esparza 07:10:00 [facility] CBC WITH PLATELET AND DIFFERENTIAL 2021-09-19 Lexie Esparza 07:10:00 Hospital XR ELBOW 3+ VW LEFT 2021-09-10 Rebecca Brownlee 15:28:[address] [facility] [address] ANGIOGRAM NECK W WO CONTRAST 2021-08-27 Brenda Retana 00:01:04 [facility] CT ANGIOGRAM HEAD W WO CONTRAST 2021-08-27 Brenda Retana 00:00:50 [facility] CT HEAD WO CONTRAST 2021-08-26 Brenda Retana 23:42:36 [facility] ECG ED PRELIMINARY INTERPRETATION 2021-08-26 Brenda Retana 23:22:45 [facility] CBC WITH PLATELET AND DIFFERENTIAL 2021-08-26 Willie Retana 21:57:00 [facility] COMPREHENSIVE METABOLIC PANEL 2021-08-26 Brenda Retana thodist 21:57:00 [facility] TROPONIN T 2021-08-26 Brenda Retana 21:57:00 [facility] B NATRIURETIC PEPTIDE 2021-08-26 Brenda Retana 21:57:00 [facility] HCG QUALITATIVE, SERUM SCREEN 2021-08-26 Brenda Retana Me thodist 21:57:00 [facility] ESTIMATED GFR 2021-08-26 Brenda Retana 21:57:00 [facility] ECG 12-LEAD 2021-08-26 Brenda Retana [facility] 21:42:16 [facility] URINE CULTURE 2021-08-06 Myles Martin [facility] 22:27:00 Hospital URINALYSIS SCREEN AND MICROSCOPY, 2021-08-06 Myles Martin Siist WITH REFLEX TO CULTURE 22:27:00 Hospital XR CHEST 2 VW 2021-08-06 Myles Maritn [facility] 20:36:00 Hospital INFLUENZA ANTIGEN 2021-08-06 Susie Melton [facility] 20:10:00 [facility] RESPIRATORY PATHOGEN PANEL WITH 2021-08-06 Susie Melton COVID-19 RT-PCR 20:10:00 [facility] ECG ED PRELIMINARY INTERPRETATION 2021-08-06 Myles Martin Si [facility] 20:08:02 [facility] COMPREHENSIVE METABOLIC PANEL 2021-08-06 Susie Melton thodist 20:05:00 [facility] CBC WITH PLATELET AND DIFFERENTIAL 2021-08-06 Montserrat Melton [facility] 20:05:00 [facility] TROPONIN T 2021-08-06 Susie Melton [facility] 20:05:00 [facility] LIPASE LEVEL 2021-08-06 Susie Melton [facility] 20:05:00 [facility] ESTIMATED GFR 2021-08-06 Susie Melton [facility] 20:05:00 [facility] ECG 12-LEAD 2021-08-06 Susie Melton [facility] 19:55:29 [facility] TROPONIN T 2021-08-01 Brenda Retana [facility] 03:32:00 [facility] ECG ED PRELIMINARY INTERPRETATION 2021-08-01 Nelson Villagran i [facility] 02:37:45 [facility] CBC WITH PLATELET AND DIFFERENTIAL 2021-08-01 Willie Retana [facility] 00:35:00 [facility] COMPREHENSIVE METABOLIC PANEL 2021-08-01 Brenda Retana Me thodist 00:35:00 [facility] TROPONIN T 2021-08-01 Brenda Retana [facility] 00:35:00 [facility] B NATRIURETIC PEPTIDE 2021-08-01 Brenda Retana 00:35:00 [facility] ESTIMATED GFR 2021-08-01 Brenda Retanaist 00:35:00 [facility] ECG 12-LEAD 2021-08-01 Brenda Retanaist 00:23:19 [facility] TROPONIN T 2021-07-30 Jaida Sales 21:35:00 Hospital [...] MAMMO BREAST SCREEN TOMOSYNTHESIS 2021-07-28 Shell Vargas [facility] BILATERAL 14:20:00 [facility] ECG ED PRELIMINARY INTERPRETATION 2021-07-01 Nelson Villagran i [facility] 00:04:28 Hospital TROPONIN T 2021-06-30 Mario Maher 23:09:00 [facility] RESPIRATORY PATHOGEN PANEL WITH 2021-06-30 Mario Maher COVID-19 RT-PCR 21:09:00 [facility] XR CHEST 2 VW 2021-06-30 Mario Maher 20:40:51 [facility] COMPREHENSIVE METABOLIC PANEL 2021-06-30 Mario Maher Me thodist 20:06:00 [facility] TROPONIN T 2021-06-30 Mario Maher 20:06:00 [facility] B NATRIURETIC PEPTIDE 2021-06-30 Mario Maher 20:06:00 [facility] CBC WITH PLATELET AND DIFFERENTIAL 2021-06-30 Marques Maher 20:06:00 [facility] ESTIMATED GFR 2021-06-30 Mario Maher 20:06:00 [facility] ECG 12-LEAD 2021-06-30 Mario Maher 19:54:19 [facility] POC URINALYSIS DIPSTICK 2021-06-16 Eddie Farris t 18:20:00 [facility] THINPREP TIS PAP AND HPV MRNA 2021-06-16 Eddie Farris Me thodist E6/E7 REFLEX HPV 16,18/45 18:17:00 Hospit al URINALYSIS, COMPLETE, WITH REFLEX 2021-06-16 Eddie Farrisist TO CULTURE 17:55:00 Hospital XR SHOULDER 2+ VW RIGHT 2021-06-02 Roger Ling t 17:52:26 [facility] MRI LUMBAR SPINE WO CONTRAST 2021-05-09 Shell Vargas Met hodist 18:44:08 [facility] MRI CERVICAL SPINE WO CONTRAST 2021-05-05 Shell olivia ethodist 14:11:49 [facility] CT LUMBAR SPINE WO CONTRAST 2021-05-04 Liborio Herrera Met hodist 22:36:[address] [facility] [address] THORACIC SPINE WO CONTRAST 2021-05-04 donellLiborio ethodist 22:35:58 Hospital TROPONIN T 2021-04-13 Shine [...] malignant neoplasm of cervix (procedure) [code = 913589937] Future Scheduled 2024-09-11 [facility] 00:00:00 malignant neoplasm of cervix (procedure) [code = [id number]] Future Scheduled 2024-09-11 [facility]ening for [facility] 00:00:00 malignant neoplasm of cervix (procedure) [code = [id number]] Future Scheduled 2024-09-11 [facility] for [facility] 00:00:00 malignant neoplasm of cervix (procedure) [code = [id number]] Future Scheduled 2024-09-11 [facility] for [facility] 00:00:00 malignant neoplasm of cervix (procedure) [code = [id number]] Future Scheduled 2024-09-11 [facility] 00:00:00 malignant neoplasm of cervix (procedure) [code = [id number]] Future Scheduled 2024-09-11 [facility] for [facility] 00:00:00 malignant neoplasm of cervix (procedure) [code = [id number]] Future Scheduled 2024-09-11 [facility] for [facility] 00:00:00 malignant neoplasm of cervix (procedure) [code = [id number]] Future Scheduled 2024-09-11 [facility] for [facility] 00:00:00 malignant neoplasm of cervix (procedure) [code = [id number]] Future Scheduled 2024-09-11 [facility] 00:00:00 malignant neoplasm of cervix (procedure) [code = [id number]] Future Scheduled 2024-09-11 [facility] 00:[facility]:00 malignant neoplasm of cervix (procedure) [code = [id number]] Future Scheduled 2024-09-11 [facility] 00:00:00 malignant neoplasm of cervix (procedure) [code = [id number]] Future Scheduled 2024-09-11 [facility] 00:00:00 malignant neoplasm of cervix (procedure) [code = 788501079] Future Scheduled 2024-09-11 [facility] 00:00:00 malignant neoplasm of cervix (procedure) [code = [id number]] Future Scheduled 2024-09-11 [facility] 00:00:00 malignant neoplasm of cervix (procedure) [code = 412397925] Future Scheduled 2024-09-11 [facility] 00:00:00 malignant neoplasm of cervix (procedure) [code = 401869298] Future Scheduled 2024-09-11 [facility] 00:00:00 malignant neoplasm of cervix (procedure) [code = 658145166] Future Scheduled 2024-09-11 [facility] 00:00:00 malignant neoplasm of cervix (procedure) [code = 281025514] Future Scheduled 2024-09-11 [facility] 00:00:00 malignant neoplasm of cervix (procedure) [code = 602796363] Future Scheduled 2024-09-11 [facility] 00:00:00 malignant neoplasm of cervix (procedure) [code = 186512757] Future Scheduled 2024-09-11 [facility] 00:00:00 malignant neoplasm of cervix (procedure) [code = 236739937] Future Scheduled 2024-09-11 [facility] 00:00:00 malignant neoplasm of cervix (procedure) [code = 602989250] Future Scheduled 2024-09-11 [facility] 00:00:00 malignant neoplasm of cervix (procedure) [code = 612471122] Future Scheduled 2024-09-11 [facility] 00:00:00 malignant neoplasm of cervix (procedure) [code = 607194128] Future Scheduled 2024-09-11 [facility] 00:00:00 malignant neoplasm of cervix (procedure) [code = 320143161] Future Scheduled 2024-09-11 [facility] 00:00:00 malignant neoplasm of cervix (procedure) [code = 779456458] Future Scheduled 2024-09-11 [facility] 00:00:00 malignant neoplasm of cervix (procedure) [code = 371650630] Future Scheduled 2024-09-11 [facility] 00:00:00 malignant neoplasm of cervix (procedure) [code = 266404878] Future Scheduled 2024-09-11 [facility] 00:00:00 malignant neoplasm of cervix (procedure) [code = 445404461] Future Scheduled 2024-09-11 [facility] 00:00:00 malignant neoplasm of cervix (procedure) [code = 105445252] Future Scheduled 2024-09-11 [facility] 00:00:00 malignant neoplasm of cervix (procedure) [code = 256927390] Future Scheduled 2024-09-11 [facility] 00:00:00 malignant neoplasm of cervix (procedure) [code = 125233561] Future Scheduled 2024-09-11 [facility] 00:00:00 malignant neoplasm of cervix (procedure) [code = 473733804] Future Scheduled 2024-09-11 [facility] 00:00:00 malignant neoplasm of cervix (procedure) [code = 173886658] Future Scheduled 2023-02-04 HEPATITIS B VACCINES Met [facility] Test 21:59:28 (1 of 3 - 3-dose series) [code = HEPATITIS B VACCINES (1 of 3 - 3-dose series)] Future Scheduled 2023-02-04 Pneumococcal Vaccine: [facility] Test 21:59:28 Pediatrics (0 to 5 Years) and At-Risk Patients (6 to 64 Years) (1 - PCV) [code = Pneumococcal Vaccine: Pediatrics (0 to 5 Years) and At-Risk Patients (6 to 64 Years) (1 - PCV)] Future Scheduled 2023-02-04 SHINGLES VACCINES (1 [facility] Test 21:59:28 of 2) [code = SHINGLES VACCINES (1 of 2)] Future Scheduled 2023-02-04 BREAST CANCER [facility] Test 21:59:28 SCREENING [code = BREAST CANCER SCREENING] Future Scheduled 2023-02-04 COVID-19 VACCINE (3 - [facility] Test 21:59:28 season) [code = COVID-19 VACCINE (3 - season)] Future Scheduled 2023-02-04 INFLUENZA VACCINE (#1) [facility] Test 21:59:28 [code = INFLUENZA VACCINE (#1)] Future Scheduled 2023-02-04 Screening for [facility] Test 21:59:28 malignant neoplasm of cervix (procedure) [code = 115991394] Future Scheduled 2023-01-20 HEPATITIS B VACCINES Met [facility] Test 14:04:46 (1 of 3 - 3-dose series) [code = HEPATITIS B VACCINES (1 of 3 - 3-dose series)] Future Scheduled 2023-01-20 Pneumococcal Vaccine: [facility] Test 14:04:46 Pediatrics (0 to 5 Years) and At-Risk Patients (6 to 64 Years) (1 - PCV) [code = Pneumococcal Vaccine: Pediatrics (0 to 5 Years) and At-Risk Patients (6 to 64 Years) (1 - PCV)] Future Scheduled 2023-01-20 SHINGLES VACCINES (1 [facility] Test 14:04:46 of 2) [code = SHINGLES VACCINES (1 of 2)] Future Scheduled 2023-01-20 COVID-19 VACCINE (3 - [facility] Test 14:04:46 Pfizer series) [code = COVID-19 VACCINE (3 - Pfizer series)] Future Scheduled 2023-01-20 BREAST CANCER [facility] Test 14:04:46 SCREENING [code = BREAST CANCER SCREENING] Future Scheduled 2023-01-20 INFLUENZA VACCINE (#1) [facility] Test 14:04:46 [code = INFLUENZA VACCINE (#1)] Future Scheduled 2023-01-20 Screening for [facility] Test 14:04:46 malignant neoplasm of cervix (procedure) [code = 004291670] Future Scheduled 2023-01-10 IMM Influenza Seasonal H [facility] Test 00:00:00 (>/= 19 yrs) [code = [...] Future Scheduled 2022-12-14 HEPATITIS B VACCINES Met [facility] Test 14:02:36 (1 of 3 - 3-dose series) [code = HEPATITIS B VACCINES (1 of 3 - 3-dose series)] Future Scheduled 2022-12-14 Pneumococcal Vaccine: [facility] Test 14:02:36 Pediatrics (0 to 5 Years) and At-Risk Patients (6 to 64 Years) (1 - PCV) [code = Pneumococcal Vaccine: Pediatrics (0 to 5 Years) and At-Risk Patients (6 to 64 Years) (1 - PCV)] Future Scheduled 2022-12-14 SHINGLES VACCINES (1 [facility] Test 14:02:36 of 2) [code = SHINGLES VACCINES (1 of 2)] Future Scheduled 2022-12-14 COVID-19 VACCINE (3 - [facility] Test 14:02:36 Pfizer series) [code = COVID-19 VACCINE (3 - Pfizer series)] Future Scheduled 2022-12-14 BREAST CANCER [facility] Test 14:02:36 SCREENING [code = BREAST CANCER SCREENING] Future Scheduled 2022-12-14 INFLUENZA VACCINE (#1) [facility] Test 14:02:36 [code = INFLUENZA VACCINE (#1)] Future Scheduled 2022-12-14 Screening for [facility] Test 14:02:36 malignant neoplasm of cervix (procedure) [code = 509426582] Future Scheduled 2022-12-14 HEPATITIS B VACCINES Met [facility] Test 14:02:36 (1 of 3 - 3-dose series) [code = HEPATITIS B VACCINES (1 of 3 - 3-dose series)] Future Scheduled 2022-12-14 Pneumococcal Vaccine: [facility] Test 14:02:36 Pediatrics (0 to 5 Years) and At-Risk Patients (6 to 64 Years) (1 - PCV) [code = Pneumococcal Vaccine: Pediatrics (0 to 5 Years) and At-Risk Patients (6 to 64 Years) (1 - PCV)] Future Scheduled 2022-12-14 SHINGLES VACCINES (1 [facility] Test 14:02:36 of 2) [code = SHINGLES VACCINES (1 of 2)] Future Scheduled 2022-12-14 COVID-19 VACCINE (3 - [facility] Test 14:02:36 Pfizer series) [code = COVID-19 VACCINE (3 - Pfizer series)] Future Scheduled 2022-12-14 BREAST CANCER [facility] Test 14:02:36 SCREENING [code = BREAST CANCER SCREENING] Future Scheduled 2022-12-14 INFLUENZA VACCINE (#1) [facility] Test 14:02:36 [code = INFLUENZA VACCINE (#1)] Future Scheduled 2022-12-14 Screening for [facility] Test 14:02:36 malignant neoplasm of cervix (procedure) [code = 083112292] Future Scheduled 2022-12-11 IMM Influenza Seasonal H [facility] Test 00:00:00 (>/= 19 yrs) [code = IMM Influenza Seasonal (>/= 19 yrs)] Future Scheduled 2022-12-11 IMM Influenza Seasonal [facility] 00:00:00 (>/= 19 yrs) [code = IMM Influenza Seasonal (>/= 19 yrs)] Future Scheduled 2022-12-11 IMM Influenza [facility]al [facility] 00:00:00 (>/= 19 yrs) [code = IMM Influenza Seasonal (>/= 19 yrs)] Future Scheduled 2022-11-23 HEPATITIS B VACCINES Met [facility] Test 15:50:17 (1 of 3 - 3-dose series) [code = HEPATITIS B VACCINES (1 of 3 - 3-dose series)] Future Scheduled 2022-11-23 Pneumococcal Vaccine: [facility] Test 15:50:17 Pediatrics (0 to 5 Years) and At-Risk Patients (6 to 64 Years) (1 - PCV) [code = Pneumococcal Vaccine: Pediatrics (0 to 5 Years) and At-Risk Patients (6 to 64 Years) (1 - PCV)] Future Scheduled 2022-11-23 SHINGLES VACCINES (1 [facility] Test 15:50:17 of 2) [code = SHINGLES VACCINES (1 of 2)] Future Scheduled 2022-11-23 COVID-19 VACCINE (3 - [facility] Test 15:50:17 Pfizer series) [code = COVID-19 VACCINE (3 - Pfizer series)] Future Scheduled 2022-11-23 BREAST CANCER [facility] Test 15:50:17 SCREENING [code = BREAST CANCER SCREENING] Future Scheduled 2022-11-23 ZZZ INFLUENZA VACCINE [facility] Test 15:50:17 [code = ZZZ INFLUENZA VACCINE] Future Scheduled 2022-11-23 Screening for [facility] Test 15:50:17 malignant neoplasm of cervix (procedure) [code = 528430968] Future Scheduled 2022-11-16 HEPATITIS B VACCINES Met [facility] Test 15:11:20 (1 of 3 - 3-dose series) [code = HEPATITIS B VACCINES (1 of 3 - 3-dose series)] Future Scheduled 2022-11-16 Pneumococcal Vaccine: [facility] Test 15:11:20 Pediatrics (0 to 5 Years) and At-Risk Patients (6 to 64 Years) (1 - PCV) [code = Pneumococcal Vaccine: Pediatrics (0 to 5 Years) and At-Risk Patients (6 to 64 Years) (1 - PCV)] Future Scheduled 2022-11-16 SHINGLES VACCINES (1 [facility] Test 15:11:20 of 2) [code = SHINGLES VACCINES (1 of 2)] Future Scheduled 2022-11-16 COVID-19 VACCINE (3 - [facility] Test 15:11:20 Pfizer series) [code = COVID-19 VACCINE (3 - Pfizer series)] Future Scheduled 2022-11-16 BREAST CANCER [facility] Test 15:11:20 SCREENING [code = BREAST CANCER SCREENING] Future Scheduled 2022-11-16 INFLUENZA VACCINE Method [facility] Test 15:11:20 [code = INFLUENZA VACCINE] Future Scheduled 2022-11-16 Screening for [facility] Test 15:11:20 malignant neoplasm of cervix (procedure) [code = 136853402] Future Scheduled 2022-10-02 HEPATITIS B VACCINES Met [facility] Test 12:32:01 (1 of 3 - 3-dose series) [code = HEPATITIS B VACCINES (1 of 3 - 3-dose series)] Future Scheduled 2022-10-02 Pneumococcal Vaccine: [facility] Test 12:32:01 Pediatrics (0 to 5 Years) and At-Risk Patients (6 to 64 Years) (1 - PCV) [code = Pneumococcal Vaccine: Pediatrics (0 to 5 Years) and At-Risk Patients (6 to 64 Years) (1 - PCV)] Future Scheduled 2022-10-02 SHINGLES VACCINES (1 [facility] Test 12:32:01 of 2) [code = SHINGLES VACCINES (1 of 2)] Future Scheduled 2022-10-02 COVID-19 VACCINE (3 - [facility] Test 12:32:01 Pfizer series) [code = COVID-19 VACCINE (3 - Pfizer series)] Future Scheduled 2022-10-02 BREAST CANCER [facility] Test 12:32:01 SCREENING [code = BREAST CANCER SCREENING] Future Scheduled 2022-10-02 INFLUENZA VACCINE Method [facility] Test 12:32:01 [code = INFLUENZA VACCINE] Future Scheduled 2022-10-02 Screening for [facility] Test 12:32:01 malignant neoplasm of cervix (procedure) [code = 161247795] Future Scheduled 2022-09-11 HEPATITIS B VACCINES Met [facility] Test 08:52:14 (1 of 3 - 3-dose series) [code = HEPATITIS B VACCINES (1 of 3 - 3-dose series)] Future Scheduled 2022-09-11 Pneumococcal Vaccine: [facility] Test 08:52:14 Pediatrics (0 to 5 Years) and At-Risk Patients (6 to 64 Years) (1 - PCV) [code = Pneumococcal Vaccine: Pediatrics (0 to 5 Years) and At-Risk Patients (6 to 64 Years) (1 - PCV)] Future Scheduled 2022-09-11 COLONOSCOPY SCREENING [facility] Test 08:52:14 [code = COLONOSCOPY SCREENING] Future Scheduled 2022-09-11 SHINGLES VACCINES (1 [facility] Test 08:52:14 of 2) [code = SHINGLES VACCINES (1 of 2)] Future Scheduled 2022-09-11 COVID-19 VACCINE (3 - [facility] Test 08:52:14 Booster for Pfizer series) [code = COVID-19 VACCINE (3 - Booster for Pfizer series)] Future Scheduled 2022-09-11 BREAST CANCER [facility] Test 08:52:14 SCREENING [code = BREAST CANCER SCREENING] Future Scheduled 2022-09-11 INFLUENZA VACCINE Method [facility] Test 08:52:14 [code = INFLUENZA VACCINE] Future Scheduled 2022-09-11 Screening for [facility] Test 08:52:14 malignant neoplasm of cervix (procedure) [code = 776940766] Future Scheduled 2022-08-06 HEPATITIS B VACCINES Met [facility] Test 21:07:15 (1 of 3 - 3-dose series) [code = HEPATITIS B VACCINES (1 of 3 - 3-dose series)] Future Scheduled 2022-08-06 Pneumococcal Vaccine: [facility] Test 21:07:15 Pediatrics (0 to 5 Years) and At-Risk Patients (6 to 64 Years) (1 - PCV) [code = Pneumococcal Vaccine: Pediatrics (0 to 5 Years) and At-Risk Patients (6 to 64 Years) (1 - PCV)] Future Scheduled 2022-08-06 COLONOSCOPY SCREENING [facility] Test 21:07:15 [code = COLONOSCOPY SCREENING] Future Scheduled 2022-08-06 SHINGLES VACCINES (1 [facility] Test 21:07:15 of 2) [code = SHINGLES VACCINES (1 of 2)] Future Scheduled 2022-08-06 COVID-19 VACCINE (3 - [facility] Test 21:07:15 Booster for Pfizer series) [code = COVID-19 VACCINE (3 - Booster for Pfizer series)] Future Scheduled 2022-08-06 BREAST CANCER [facility] Test 21:07:15 SCREENING [code = BREAST CANCER SCREENING] Future Scheduled 2022-08-06 INFLUENZA VACCINE Method [facility] Test 21:07:15 [code = INFLUENZA VACCINE] Future Scheduled 2022-08-06 Screening for [facility] Test 21:07:15 malignant neoplasm of cervix (procedure) [code = 386137000] Future Scheduled 2022-06-22 HEPATITIS B VACCINES Met [facility] Test 14:13:36 (1 of 3 - 3-dose series) [code = HEPATITIS B VACCINES (1 of 3 - 3-dose series)] Future Scheduled 2022-06-22 Pneumococcal Vaccine: [facility] Test 14:13:36 Pediatrics (0 to 5 Years) and At-Risk Patients (6 to 64 Years) (1 - PCV) [code = Pneumococcal Vaccine: Pediatrics (0 to 5 Years) and At-Risk Patients (6 to 64 Years) (1 - PCV)] Future Scheduled 2022-06-22 COLONOSCOPY SCREENING [facility] Test 14:13:36 [code = COLONOSCOPY SCREENING] Future Scheduled 2022-06-22 SHINGLES VACCINES (1 [facility] Test 14:13:36 of 2) [code = SHINGLES VACCINES (1 of 2)] Future Scheduled 2022-06-22 COVID-19 VACCINE (3 - [facility] Test 14:13:36 Booster for Pfizer series) [code = COVID-19 VACCINE (3 - Booster for Pfizer series)] Future Scheduled 2022-06-22 INFLUENZA VACCINE [facility] Test 14:13:36 [code = INFLUENZA VACCINE] Future Scheduled 2022-06-22 BREAST CANCER [facility] Test 14:13:36 SCREENING [code = BREAST CANCER SCREENING] Future Scheduled 2022-06-22 Screening for [facility] Test 14:13:36 malignant neoplasm of cervix (procedure) [code = 770339400] Future Scheduled 2022 HEPATITIS B VACCINES Met [facility] Test 13:45:15 (1 of 3 - 3-dose series) [code = HEPATITIS B VACCINES (1 of 3 - 3-dose series)] Future Scheduled 2022 Pneumococcal Vaccine: [facility] Test 13:45:15 Pediatrics (0 to 5 Years) and At-Risk Patients (6 to 64 Years) (1 - PCV) [code = Pneumococcal Vaccine: Pediatrics (0 to 5 Years) and At-Risk Patients (6 to 64 Years) (1 - PCV)] Future Scheduled 2022 COLONOSCOPY SCREENING [facility] Test 13:45:15 [code = COLONOSCOPY SCREENING] Future Scheduled 2022 SHINGLES VACCINES (1 [facility] Test 13:45:15 of 2) [code = SHINGLES VACCINES (1 of 2)] Future Scheduled 2022 COVID-19 VACCINE (3 - [facility] Test 13:45:15 Booster for Pfizer series) [code = COVID-19 VACCINE (3 - Booster for Pfizer series)] Future Scheduled 2022 INFLUENZA VACCINE [facility] Test 13:45:15 [code = INFLUENZA VACCINE] Future Scheduled 2022 BREAST CANCER [facility] Test 13:45:15 SCREENING [code = BREAST CANCER SCREENING] Future Scheduled 2022 Screening for [facility] Test 13:45:15 malignant neoplasm of cervix (procedure) [code = 625927460] Future Scheduled 2022-04-17 HEPATITIS B VACCINES Met [facility] Test 10:21:02 (1 of 3 - 3-dose series) [code = HEPATITIS B VACCINES (1 of 3 - 3-dose series)] Future Scheduled 2022-04-17 Pneumococcal Vaccine: [facility] Test 10:21:02 Pediatrics (0 to 5 Years) and At-Risk Patients (6 to 64 Years) (1 - PCV) [code = Pneumococcal Vaccine: Pediatrics (0 to 5 Years) and At-Risk Patients (6 to 64 Years) (1 - PCV)] Future Scheduled 2022-04-17 COLONOSCOPY SCREENING [facility] Test 10:21:02 [code = COLONOSCOPY SCREENING] Future Scheduled 2022-04-17 SHINGLES VACCINES (1 [facility] Test 10:21:02 of 2) [code = SHINGLES VACCINES (1 of 2)] Future Scheduled 2022-04-17 COVID-19 VACCINE (3 - [facility] Test 10:21:02 Booster for Pfizer series) [code = COVID-19 VACCINE (3 - Booster for Pfizer series)] Future Scheduled 2022-04-17 INFLUENZA VACCINE [facility] Test 10:21:02 [code = INFLUENZA VACCINE] Future Scheduled 2022-04-17 BREAST CANCER [facility] Test 10:21:02 SCREENING [code = BREAST CANCER SCREENING] Future Scheduled 2022-04-17 Screening for [facility] Test 10:21:02 malignant neoplasm of cervix (procedure) [code = 342542353] Future Scheduled 2022-04-15 HEPATITIS B VACCINES [facility] Test 14:24:02 (1 of 3 - 3-dose series) [code = HEPATITIS B VACCINES (1 of 3 - 3-dose series)] Future Scheduled 2022-04-15 Pneumococcal Vaccine: [facility] Test 14:24:02 Pediatrics (0 to 5 Years) and At-Risk Patients (6 to 64 Years) (1 - PCV) [code = Pneumococcal Vaccine: Pediatrics (0 to 5 Years) and At-Risk Patients (6 to 64 Years) (1 - PCV)] Future Scheduled 2022-04-15 COLONOSCOPY SCREENING [facility] Test 14:24:02 [code = COLONOSCOPY SCREENING] Future Scheduled 2022-04-15 SHINGLES VACCINES (1 [facility] Test 14:24:02 of 2) [code = SHINGLES VACCINES (1 of 2)] Future Scheduled 2022-04-15 COVID-19 VACCINE (3 - [facility] Test 14:24:02 Booster for Pfizer series) [code = COVID-19 VACCINE (3 - Booster for Pfizer series)] Future Scheduled 2022-04-15 INFLUENZA VACCINE [facility] Test 14:24:02 [code = INFLUENZA VACCINE] Future Scheduled 2022-04-15 BREAST CANCER [facility] Test 14:24:02 SCREENING [code = BREAST CANCER SCREENING] Future Scheduled 2022-04-15 Screening for [facility] Test 14:24:02 malignant neoplasm of cervix (procedure) [code = [id number]] Future Scheduled 2022-04-03 HEPATITIS B VACCINES [facility] Test 09:31:00 (1 of 3 - 3-dose series) [code = HEPATITIS B VACCINES (1 of 3 - 3-dose series)] Future Scheduled 2022-04-03 Pneumococcal Vaccine: [facility] Test 09:31:00 Pediatrics (0 to 5 Years) and At-Risk Patients (6 to 64 Years) (1 - PCV) [code = Pneumococcal Vaccine: Pediatrics (0 to 5 Years) and At-Risk Patients (6 to 64 Years) (1 - PCV)] Future Scheduled 2022-04-03 COLONOSCOPY SCREENING [facility] Test 09:31:00 [code = COLONOSCOPY SCREENING] Future Scheduled 2022-04-03 SHINGLES VACCINES (1 [facility] Test 09:31:00 of 2) [code = SHINGLES VACCINES (1 of 2)] Future Scheduled 2022-04-03 COVID-19 VACCINE (3 - [facility] Test 09:31:00 Booster for Pfizer series) [code = COVID-19 VACCINE (3 - Booster for Pfizer series)] Future Scheduled 2022-04-03 INFLUENZA VACCINE [facility] Test 09:31:00 [code = INFLUENZA VACCINE] Future Scheduled 2022-04-03 BREAST CANCER [facility] Test 09:31:00 SCREENING [code = BREAST CANCER SCREENING] Future Scheduled 2022-04-03 Screening for [facility] Test 09:31:00 malignant neoplasm of cervix (procedure) [code = [id number]] Future Scheduled 2022-03-05 HEPATITIS B VACCINES [facility] Test 00:08:56 (1 of 3 - 3-dose series) [code = HEPATITIS B VACCINES (1 of 3 - 3-dose series)] Future Scheduled 2022-03-05 Pneumococcal Vaccine: [facility] Test 00:08:56 Pediatrics (0 to 5 Years) and At-Risk Patients (6 to 64 Years) (1 - PCV) [code = Pneumococcal Vaccine: Pediatrics (0 to 5 Years) and At-Risk Patients (6 to 64 Years) (1 - PCV)] Future Scheduled 2022-03-05 COLONOSCOPY SCREENING [facility] Test 00:08:56 [code = COLONOSCOPY SCREENING] Future Scheduled 2022-03-05 SHINGLES VACCINES (1 [facility] Test 00:08:56 of 2) [code = SHINGLES VACCINES (1 of 2)] Future Scheduled 2022-03-05 COVID-19 VACCINE (3 - [facility] Test 00:08:56 Booster for Pfizer series) [code = COVID-19 VACCINE (3 - Booster for Pfizer series)] Future Scheduled 2022-03-05 INFLUENZA VACCINE [facility] Test 00:08:56 [code = INFLUENZA VACCINE] Future Scheduled 2022-03-05 BREAST CANCER [facility] Test 00:08:56 SCREENING [code = BREAST CANCER SCREENING] Future Scheduled 2022-03-05 Screening for [facility] Test 00:08:56 malignant neoplasm of cervix (procedure) [code = 135001322] Future Scheduled 2022-03-05 HEPATITIS B VACCINES [facility] Test 00:08:56 (1 of 3 - 3-dose series) [code = HEPATITIS B VACCINES (1 of 3 - 3-dose series)] Future Scheduled 2022-03-05 Pneumococcal Vaccine: [facility] Test 00:08:56 Pediatrics (0 to 5 Years) and At-Risk Patients (6 to 64 Years) (1 - PCV) [code = Pneumococcal Vaccine: Pediatrics (0 to 5 Years) and At-Risk Patients (6 to 64 Years) (1 - PCV)] Future Scheduled 2022-03-05 COLONOSCOPY SCREENING [facility] Test 00:08:56 [code = COLONOSCOPY SCREENING] Future Scheduled 2022-03-05 SHINGLES VACCINES (1 Met [facility] Test 00:08:56 of 2) [code = SHINGLES VACCINES (1 of 2)] Future Scheduled 2022-03-05 COVID-19 VACCINE (3 - [facility] Test 00:08:56 Booster for Pfizer series) [code = COVID-19 VACCINE (3 - Booster for Pfizer series)] Future Scheduled 2022-03-05 INFLUENZA VACCINE [facility] Test 00:08:56 [code = INFLUENZA VACCINE] Future Scheduled 2022-03-05 BREAST CANCER [facility] Test 00:08:56 SCREENING [code = BREAST CANCER SCREENING] Future Scheduled 2022-03-05 Screening for [facility] Test 00:08:56 malignant neoplasm of cervix (procedure) [code = [id number]] Future Scheduled 2022-02-22 HEPATITIS B VACCINES Met [facility] Test 22:17:15 (1 of 3 - 3-dose series) [code = HEPATITIS B VACCINES (1 of 3 - 3-dose series)] Future Scheduled 2022-02-22 Pneumococcal Vaccine: [facility] Test 22:17:15 Pediatrics (0 to 5 Years) and At-Risk Patients (6 to 64 Years) (1 - PCV) [code = Pneumococcal Vaccine: Pediatrics (0 to 5 Years) and At-Risk Patients (6 to 64 Years) (1 - PCV)] Future Scheduled 2022-02-22 COLONOSCOPY SCREENING [facility] Test 22:17:15 [code = COLONOSCOPY SCREENING] Future Scheduled 2022-02-22 SHINGLES VACCINES (1 [facility] Test 22:17:15 of 2) [code = SHINGLES VACCINES (1 of 2)] Future Scheduled 2022-02-22 COVID-19 VACCINE (3 - [facility] Test 22:17:15 Booster for Pfizer series) [code = COVID-19 VACCINE (3 - Booster for Pfizer series)] Future Scheduled 2022-02-22 [facility]ACCINE [facility]:17:15 [code = INFLUENZA VACCINE] Future Scheduled 2022-02-22 BREAST CANCER [facility] Test 22:17:15 SCREENING [code = BREAST CANCER SCREENING] Future Scheduled 2022-02-22 Screening for [facility] Test 22:17:15 malignant neoplasm of cervix (procedure) [code = 220149140] Future Scheduled 2022-01-10 IMM Influenza Seasonal H [...] malignant neoplasm of colon (procedure) [code = 469460170] Future Scheduled 2019 [facility]:00 malignant neoplasm of colon (procedure) [code = 429981197] Future Scheduled 2019 [facility] 00:00:00 malignant neoplasm of colon (procedure) [code = 347975566] Future Scheduled 2019 [facility] 00:00:00 malignant neoplasm of colon (procedure) [code = 408372681] Future Scheduled 2019 [facility] 00:00:00 malignant neoplasm of colon (procedure) [code = 204935038] Future Scheduled 2019 [facility] 00:00:00 malignant neoplasm of colon (procedure) [code = 529994971] Future Scheduled 2019 [facility] 00:00:00 malignant neoplasm of colon (procedure) [code = 532231972] Future Scheduled 2019 [facility] 00:00:00 malignant neoplasm of colon (procedure) [code = 317398276] Future Scheduled 2019 [facility] 00:00:00 malignant neoplasm of colon (procedure) [code = 850288480] Future Scheduled 2019 [facility] 00:00:00 malignant neoplasm of colon (procedure) [code = 267855367] Future Scheduled 2019 [facility] 00:00:00 malignant neoplasm of colon (procedure) [code = 778834276] Future Scheduled 2019 [facility] 00:00:00 malignant neoplasm of colon (procedure) [code = 316327446] Future Scheduled 2019 [facility] 00:00:00 malignant neoplasm of colon (procedure) [code = 994989727] Future Scheduled 2019 [facility] 00:00:00 malignant neoplasm of colon (procedure) [code = 446821387] Future Scheduled 2019 [facility] 00:[facility]:00 malignant neoplasm of colon (procedure) [code = 541820890] Future Scheduled 2019 [facility] 00:00:00 malignant neoplasm of colon (procedure) [code = 785329119] Future Scheduled 2019 [facility] 00:00:00 malignant neoplasm of colon (procedure) [code = 938537353] Future Scheduled 1975 Imm Pneumococcal 0-64 Maria [...] Vaccine (#1)] Future Scheduled 1972 Dental X-Ray: [facility] 00:00:00 Bitewings [code = Dental [...] Type Clinicians Facility Department ID 2022-11-16 Outpatient [facility] [id number] [facility] 05:03:14 [id number] [facility] 2022-04-23 Outpatient [facility] [id number] [place] 15:11:46 [id number] Health 2023-02-06 2023-02-06 Outpatient _GCBZW_Ka PRIV PRIV 276 [id number] [facility] 00:00:00 00:00:00 adrd_Ariana [id number] [facility] 2022-12-25 2022-12-25 Outpatient SFA SFA [id number] Vadim 16:12:57 16:12:57 01799 F Dyer 2022-12-19 2022-12-19 Outpatient SFA SFA [id number]- Vadim 10:18:19 10:18:19 44635 F Dyer 2022-12-17 2022-12-17 Outpatient SFA SFA [id number]- Vadim 10:01:16 10:01:16 40968 F Dyer 2022-11-17 2022-11-17 Outpatient SFA SFA [id number]- Vadim 09:30:40 09:30:40 74905 F Dyer 2022-11-06 2022-11-06 Outpatient SFA SFA [id number] Vadim 08:17:59 08:17:59 40716 F Dyer 2022-09-14 2022-09-14 Outpatient SFA SFA [id number] Vadim 14:26:13 14:26:13 [id number] F Dyer 2022-09-10 2022-09-10 Orders Fabby, 1.2.840.1 [id number] 1907 Methodi 00:00:00 00:00:00 Only Juana 27737.1.[address] Kelley 3.430.2.7 Hospit a .3.420931 l .8 2022-09-10 2022-09-10 Telephone Jean, 1.2.840.1 [id number] 2100 [id number] Methodi 00:00:00 00:00:[address] 3.430.2.7 Hospit a .3.704465 l .8 2022-09-10 2022-09-10 Orders Fabby, 1.2.840.1 [id number] 395126 7534 Methodi 00:00:00 00:00:00 Only Juana 45358.1.[address] Kelley 3.430.2.7 Hospit a .3.241854 l .8 2022-09-10 2022-09-10 Telephone Jean, 1.2.840.1 [id number] 2099 [id number] Methodi 00:00:00 00:00:[address] 3.430.2.7 Hospit a .3.928418 l .8 2022-05-15 2022-05-15 Outpatient KELLI ALDANA [id number] 22 Kelli 00:00:00 00:00:00 SHINE Rodrigocristiane ren 2022-02-19 2022-02-19 Emergency Vasquez, 1.2.840.1 [id number] 2099 [id number] Methodi 18:09:00 20:16:[address] Cristóbal [address] [place] 3.430.2.7 Hosp shai .3.010695 l .8 2022-02-19 2022-02-19 Emergency Vasquez, 1.2.840.1 [id number] 2099 967915 Methodi 18:09:00 20:16:00 Cristóbal [address]49[address]1.[address] [place] 3.430.2.7 Hosp shai .3.335432 l .8 2022-02-12 2022-02-12 Orders Lopez, 1.2.840.1 [id number] 33797 Methodi 00:00:00 00:00:00 Only Maureen 15943.1.[address] 3.430.2.7 Hospit a .3.567462 l .8 2022-02-12 2022-02-12 Orders Lopez, 1.2.840.1 [id number] 05259 Methodi 00:00:00 00:00:00 Only Maureen 69319.1.[address] 3.430.2.7 Hospit a .3.419262 l .8 2022-02-11 2022-02-11 Orders Lopez, 1.2.840.1 [id number] 60993 Methodi 00:00:00 00:00:00 Only Maureen 77959.1.[address] 3.430.2.7 Hospit a .3.932294 l .8 2022-02-11 2022-02-11 Telephone Prasanth, 1.2.840.1 [id number] 2099 974825 Methodi 00:00:00 00:00:[address] 3.430.2.7 Hospit a .3.114563 l .8 2022-02-11 2022-02-11 Orders Jessica, 1.2.840.1 [id number] 94518 10540 Methodi 00:00:00 00:00:00 Only Maureen 26465.1.[address] 3.430.2.7 Hospit a .3.744318 l .8 2022-02-11 2022-02-11 Telephone Prasanth, 1.2.840.1 [id number] 2099 225480 Methodi 00:00:00 00:00:[address] 3.430.2.7 Hospit a .3.042572 l .8 2022-02-09 2022-02-09 Outpatient COH [facility] PDPFCCG ETQ COH 00:00:00 00:00:00 [id number] 2022-02-09 2022-02-09 Telephone Prasanth, 1.2.840.1 [id number] 2099 457443 Methodi 00:00:00 00:00:[address] 3.430.2.7 Hospit a .3.891680 l .8 2022-02-09 2022-02-09 Telephone Prasanth, 1.2.840.1 [id number] 2099 873553 Methodi 00:00:00 00:00:00 Eddie Franco [address]204.1.[address] 3.430.2.7 Hospit a .3.114013 l .8 2022-02-05 2022-02-05 Lab Prasanth, 1.2.840.1 [id number] 283463 6443 Methodi 10:50:00 10:55:00 Eddie Franco 90129.1.[address] 3.430.2.7 Hospit a .3.499251 l .8 2022-02-05 2022-02-05 Office Prasanth, 1.2.840.1 [id number] 451156 1528 Methodi 09:40:00 10:31:06 Visit Eddie C. 73775.1.[address] 3.430.2.7 Hospit a .3.208365 l .8 2022-02-05 2022-02-05 Refill Alicia, 1.2.840.1 [id number] 8442 Methodi 00:00:00 00:00:[address] [place] 3.430.2.7 Hospi ta .3.312189 l .8 2022-02-05 2022-02-05 Travel 1.2.840.1 1.2.890.024 2940 908896 Methodi 00:00:00 00:00:[address] 3.430.2.7 0.2.7.3.698 Ho spita .3.414386 084.8 l .8 2022-02-03 2022-02-03 Telephone Prasanth, 1.2.840.1 [id number] 2099 757917 Methodi 00:00:00 00:00:[address] 3.430.2.7 Hospit a .3.423962 l .8 2022-01-01 2022-01-01 Telephone Mccallum, 1.2.840.1 [id number] 2099 939592 Methodi 00:00:00 00:00:[address] 3.430.2.7 Hospit a .3.499065 l .8 2021-12-26 2021-12-26 Surgery [facility], 1.2.840.1 [id number] 870189 9964 Methodi 11:00:00 11:45:[address] Hasan 3.430.2.7 Hospit a .3.332741 l .8 2021-12-26 2021-12-26 Hospital [facility], 1.2.840.1 [id number] 15160 50589 Methodi 10:21:00 11:28:00 Encounter Proctor 13112.1.[address] Hasan 3.430.2.7 Hospit a .3.952979 l .8 2021-12-26 2021-12-26 Anesthesia Hans Casper 1.2.840.1 [id number] Methodi 10:44:00 11:06:00 Event Vitaliy 61615.1.[address] 3.430.2.7 Hospit a .3.518770 l .8 2021-12-26 2021-12-26 Travel 1.2.840.1 1.2.622.472 5734 991448 Methodi 00:00:00 00:00:[address] 3.430.2.7 0.2.7.3.698 Ho spita .3.972906 084.8 l .8 2021-12-24 2021-12-24 Lab Small, 1.2.840.1 [id number] 940224 7287 Methodi 08:00:00 08:15:[address] Hasan 3.430.2.7 Hospit a .3.880935 l .8 2021-12-24 2021-12-24 Orders Marc, 1.2.840.1 [id number] 731071 9151 Methodi 00:00:00 00:00:00 Only Kortney 08366.1.[address] 3.430.2.7 Hospit a .3.517626 l .8 2021-12-18 2021-12-18 Office Prasanth, 1.2.840.1 [id number] 444367 0914 Methodi 11:00:00 13:02:01 Visit Eddie AldridgeChantal 56928.1.[address] 3.430.2.7 Hospit a .3.881323 l .8 2021-12-18 2021-12-18 Travel 1.2.840.1 1.2.773.753 0905 522351 Methodi 00:00:00 00:00:[address] 3.430.2.7 0.2.7.3.698 Ho spita .3.734688 084.8 l .8 2021-12-16 2021-12-16 Office Doug Estevez [facility] Encounter/ [facility] 00:00:00 00:00:00 Visit Bijan Carson [id number] [facility] 499326 [facility] 2021-12-09 2021-12-09 Refill Oleksandr, 1.2.840.1 [id number] 2099 401456 Methodi 00:00:00 00:00:[address] 3.430.2.7 Hospit a .3.593011 l .8 2021-11-28 2021-11-28 Office Sundarmyriamflakito, 1.2.840.1 [id number] 357 1205650 Methodi 10:15:00 10:52:48 [place] [address]67.1.[address] 3.430.2.7 Hospit a .3.590011 l .8 2021-11-28 2021-11-28 Travel 1.2.840.1 1.2.422.475 3644 186938 Methodi 00:00:00 00:00:[address] 3.430.2.7 0.2.7.3.698 Ho spita .3.161485 084.8 l .8 2021-11-17 2021-11-17 Office Fabby, 1.2.840.1 [id number] 374712 9095 Methodi 09:00:00 09:30:00 Visit Juana 71051.1.[address] [place] 3.430.2.7 Hospit a .3.831277 l .8 2021-11-17 2021-11-17 Travel 1.2.840.1 1.2.627.960 9587 733546 Methodi 00:00:00 00:00:[address] 3.430.2.7 0.2.7.3.698 Ho spita .3.893015 084.8 l .8 2021-11-14 2021-11-14 Orders Alicia, 1.2.840.1 [id number] 761801 6707 Methodi 00:00:00 00:00:00 Only Shell 19960.1.[address] Doe 3.430.2.7 Hospi ta .3.326639 l .8 2021-11-11 2021-11-11 Telemedici Iscorwin, 1.2.840.1 [id number] 276 1232964 Methodi 10:00:00 10:40:34 ne Shell 61836.1.[address] [place] 3.430.2.7 Hospi ta .3.922622 l .8 2021-11-07 2021-11-07 Emergency Noel, 1.2.840.1 [id number] 2099 366033 Methodi 14:04:00 15:46:[address] Kirsten 3.430.2.7 Hospit a .3.587284 l .8 2021-11-07 2021-11-07 Travel 1.2.840.1 1.2.443.298 2281 690180 Methodi 00:00:00 00:00:[address] 3.430.2.7 0.2.7.3.698 Ho spita .3.949766 084.8 l .8 2021-11-03 2021-11-03 Lab Staci, 1.2.840.1 [id number] 113956 0067 Methodi 08:25:00 08:30:[address] Hasan 3.430.2.7 Hospit a .3.697379 l .8 2021-11-03 2021-11-03 [facility] [id number] 623 Golva 00:00:00 00:00:00 PROCTOR [address] 2021-11-03 2021-11-03 Telephone Alessio, 1.2.840.1 [id number] 2099 712333 Methodi 00:00:00 00:00:[address] 3.430.2.7 Hospit a .3.084628 l .8 2021-11-03 2021-11-03 Travel 1.2.840.1 1.2.437.258 9863 109088 Methodi 00:00:00 00:00:[address] 3.430.2.7 0.2.7.3.698 Ho spita .3.031240 084.8 l .8 2021-10-29 2021-10-29 Documentat Binta, 1.2.840.1 [id number] 2 [id number] Methodi 00:00:00 00:00:00 ion Amanda 25842.1.[address] 3.430.2.7 Hospit a .3.742887 l .8 2021-10-29 2021-10-29 Prep for Binta, 1.2.840.1 [id number] 169 7458571 Methodi 00:00:00 00:00:00 Surgery Amanda 77112.1.[address] 3.430.2.7 Hospit a .3.316930 l .8 2021-10-29 2021-10-29 Telephone Judd, 1.2.840.1 [id number] 21 69890702 Methodi 00:00:00 00:00:[address] 3.430.2.7 Hospit a .3.973940 l .8 2021-10-29 2021-10-29 Travel 1.2.840.1 1.2.877.458 7749 988444 Methodi 00:00:00 00:00:[address] 3.430.2.7 0.2.7.3.698 Ho spita .3.428149 084.8 l .8 2021-10-22 2021-10-22 Office Kem, 1.2.840.1 [id number] 863 7528055 Methodi 09:40:00 10:17:00 Visit Rebecca Altagracia 31838.1.[address] 3.430.2.7 Hospit a .3.030210 l .8 2021-10-22 2021-10-22 Travel 1.2.840.1 1.2.629.014 8807 344973 Methodi 00:00:00 00:00:[address] 3.430.2.7 0.2.7.3.698 Ho spita .3.463878 084.8 l .8 2021-10-14 2021-10-15 Emergency Adry, 1.2.840.1 [id number] 497 6926058 Methodi 21:57:00 00:06:00 [address] Kody [address]123.1.[address] 3.430.2.7 Hospit a .3.523984 l .8 2021-10-12 2021-10-12 Emergency Courtney, 1.2.840.1 [id number] 2099 032847 Methodi 10:13:00 14:37:00 Trung H[place] [address]461.1.[address] 3.430.2.7 Hospit a .3.395107 l .8 2021-10-09 2021-10-09 Telephone TitaJuan Carlos 1.2.840.1 [id number] Methodi 00:00:00 00:00:[address] 3.430.2.7 Hospit a .3.580121 l .8 2021-10-09 2021-10-09 Telephone Tita Juan Carlos 1.2.840.1 [id number] Methodi 00:00:00 00:00:[address] 3.430.2.7 Hospit a .3.610018 l .8 2021-10-09 2021-10-09 Orders Istre, 1.2.840.1 [id number] 294055 0773 Methodi 00:00:00 00:00:00 Only Shell 10362.1.[address] Doe 3.430.2.7 Hospi ta .3.680974 l .8 2021-10-02 2021-10-02 Telephone Amrussel, 1.2.840.1 [id number] 979 5453439 Methodi 00:00:00 00:00:[address] 3.430.2.7 Hospit a .3.616511 l .8 2021-09-30 2021-09-30 Surgery [facility] 1.2.840.1 [id number] 197 0849337 Methodi 07:15:00 09:02:00 Rebecca Nguyen 06142.1.[address] 3.430.2.7 Hospit a .3.124209 l .8 2021-09-30 2021-09-30 [facility] 1.2.840.1 [id number] Methodi 06:02:00 08:50:00 Encounter Rebecca Nguyen 91780.1.[address] 3.430.2.7 Hospit a .3.620193 l .8 2021-09-30 2021-09-30 Anesthesia Tomas Mattson. 1.2.840.1 1045 58320 [id number] Methodi 07:05:00 08:04:00 Event Sunita Marie 47583.1.[address] 3.430.2.7 Hospit a .3.248980 l .8 2021-09-26 2021-09-26 Outpatient [facility] 2100 056157 Golva 00:00:00 00:00:00 REBECCA Baumann Method i st 2021-09-19 2021-09-19 Travel 1.2.840.1 1.2.218.674 8945 038819 Methodi 00:00:00 00:00:[address] 3.430.2.7 0.2.7.3.698 spita .3.874500 084.8 l .8 2021-09-19 2021-09-19 Orders Marrero, 1.2.840.1 [id number] 2099 911501 Methodi 00:00:00 00:00:00 Only Sharon 99058.1.[address] 3.430.2.7 Hospit a .3.310160 l .8 2021-09-19 2021-09-19 Orders Tavares, 1.2.840.1 382439782 665146 0214 Methodi 00:00:00 00:00:00 Only Peggy 64892.1.[address] 3.430.2.7 Hospit a .3.307457 l .8 2021-09-18 2021-09-18 Orders Propgilberto, 1.2.840.1 075567304 731871 4561 Methodi 00:00:00 00:00:00 Only Pina 09298.1.[address] 3.430.2.7 Hospit a .3.444606 l .8 2021-09-14 2021-09-14 Orders Tavares, 1.2.840.1 601197712 008135 9928 Methodi 00:00:00 00:00:00 Only Peggy 35048.1.[address] 3.430.2.7 Hospit a .3.071189 l .8 2021-09-11 2021-09-11 Office Tavares, 1.2.840.1 674744490 965693 4216 Methodi 15:50:00 16:55:49 Visit Peggy 85883.1.[address] 3.430.2.7 Hospit a .3.635342 l .8 2021-09-11 2021-09-11 Travel 1.2.840.1 1.2.951.675 4477 639604 Methodi 00:00:00 00:00:[address] 3.430.2.7 0.2.7.3.698 spita .3.045861 084.8 l .8 2021-09-10 2021-09-10 Office Kem, 1.2.840.1 [id number] 175 0890266 Methodi 10:40:00 11:03:05 Visit Rebecca Nguyen 93888.1.[address] 3.430.2.7 Hospit a .3.669693 l .8 2021-09-10 2021-09-10 Orders Wyatt, 1.2.840.1 [id number] 2099 665596 Methodi 00:00:00 00:00:00 Only Jami 98844.1.[address] 3.430.2.7 Hospit a .3.710862 l .8 2021-09-10 2021-09-10 Outpatient BOOTHBAY, [facility] 2100 854558 Golva 00:00:00 00:00:00 REBECCA [address] 2021-08-31 2021-08-31 Refill Istre, 1.2.840.1 307648791 063965 9229 Methodi 00:00:00 00:00:[address] [place] 3.430.2.7 Hospi ta .3.797486 l .8 2021-08-31 2021-08-31 Refill Prasanth, 1.2.840.1 854681819 453451 3700 Methodi 00:00:00 00:00:00 Eddie Franco 89632.1.[address] 3.430.2.7 Hospit a .3.677736 l .8 2021-08-29 2021-08-29 Telephone Denisse, 1.2.840.1 [id number] 2099 920004 Methodi 00:00:00 00:00:00 Ivy Ray 23244.1.[address] 3.430.2.7 Hospit a .3.546476 l .8 2021-08-29 2021-08-29 Orders Iscorwin, 1.2.840.1 924146261 191461 9662 Methodi 00:00:00 00:00:00 Only Shell 16710.1.[address] [place] 3.430.2.7 Hospi ta .3.364384 l .8 2021-08-28 2021-08-28 Travel 1.2.840.1 1.2.530.276 3082 169202 Methodi 00:00:00 00:00:[address] 3.430.2.7 0.2.7.3.698 Ho spita .3.609455 084.8 l .8 2021-08-26 2021-08-26 Emergency Mazin, 1.2.840.1 [id number] 2099 439853 Methodi 16:36:00 20:08:[address] Adrienne 3.430.2.7 Hospit a .3.298704 l .8 2021-08-26 2021-08-26 Orders Colmenter, 1.2.840.1 [id number] 959 3636775 Methodi 00:00:00 00:00:00 Only Linda 51842.1.[address] 3.430.2.7 Hospit a .3.539714 l .8 2021-08-21 2021-08-21 Orders Colmenter, 1.2.840.1 691362747 287 5764742 Methodi 00:00:00 00:00:00 Only Linda 53044.1.[address] 3.430.2.7 Hospit a .3.648989 l .8 2021-08-14 2021-08-14 Office Colmenter, 1.2.840.1 [id number] 009 5080440 Methodi 11:00:00 13:05:34 Visit Linda 74387.1.[address] 3.430.2.7 Hospit a .3.993303 l .8 2021-08-12 2021-08-12 Office Prasanth, 1.2.840.1 [id number] 581754 9916 Methodi 10:00:00 11:08:57 Visit Eddie Franco 39547.1.[address] 3.430.2.7 Hospit a .3.827835 l .8 2021-08-12 2021-08-12 Travel 1.2.840.1 1.2.327.334 9726 026862 Methodi 00:00:00 00:00:[address] 3.430.2.7 0.2.7.3.698 Ho spita .3.697247 084.8 l .8 2021-08-08 2021-08-08 Emergency EM Lynda, HCAKW SHIRLENE [id number] [facility] 12:48:00 19:41:00 Di 70 [facility] 2021-08-08 2021-08-08 Emergency EM Lynda, HCAKW SAHRAKW [id number] [facility] 12:48:00 19:41:00 Di [id number] [facility] 2021-08-08 2021-08-08 Outpatient Lynda, HCACL LABO [id number] [facility] 19:09:00 19:09:00 Di 00 [facility] 2021-08-08 2021-08-08 Transcribe Iscorwin, 1.2.840.1 [id number] 732 [id number] Methodi 00:00:00 00:00:00 Orders Shell 97089.1.[address] Doe 3.430.2.7 Hospi ta .3.473566 l .8 2021-08-06 2021-08-06 Emergency MarioMyles 1.2.840.1 [id number] Methodi 14:54:00 18:50:[address] 3.430.2.7 Hospit a .3.584655 l .8 2021-08-06 2021-08-06 Travel 1.2.840.1 1.2.600.016 1970 698074 Methodi 00:00:00 00:00:[address] 3.430.2.7 0.2.7.3.698 Ho spita .3.375379 084.8 l .8 2021-08-04 2021-08-04 Office Iscorwin, 1.2.840.1 [id number] 208736 1330 Methodi 14:20:00 15:33:19 Visit Shell 02066.1.[address] [place] 3.430.2.7 Hospi ta .3.176759 l .8 2021-08-04 2021-08-04 Travel 1.2.840.1 1.2.003.630 6118 174125 Methodi 00:00:00 00:00:[address] 3.430.2.7 0.2.7.3.698 Ho spita .3.216900 084.8 l .8 2021-07-31 2021-07-31 Emergency Nelson Villagran 1.2.840.1 [id number] Methodi 21:39:00 23:28:[address] 3.430.2.7 Hospit a .3.646369 l .8 2021-07-31 2021-07-31 Travel 1.2.840.1 1.2.417.037 5111 476138 Methodi 00:00:00 00:00:[address] 3.430.2.7 0.2.7.3.698 Ho spita .3.004347 084.8 l .8 2021-07-30 2021-07-30 Emergency MarioMyles 1.2.840.1 [id number] Methodi 13:34:00 17:16:[address] 3.430.2.7 Hospit a .3.472133 l .8 2021-07-30 2021-07-30 Telephone Alicia, 1.2.840.1 [id number] 2099 [id number] Methodi 00:00:00 00:00:[address] Doe 3.430.2.7 Hospi ta .3.262224 l .8 2021-07-28 2021-07-28 [facility] [id number] 879 Golva 00:00:00 00:00:00 PEGGY Luis Method i st 2021-07-24 2021-07-24 Orders Jessica, 1.2.840.1 [id number] 34940 19686 Methodi 00:00:00 00:00:00 Only Maureen 93564.1.[address] 3.430.2.7 Hospit a .3.809038 l .8 2021-07-23 2021-07-23 Orders Istre, 1.2.840.1 [id number] 224187 7074 Methodi 00:00:00 00:00:00 Only Shell 61419.1.[address] [place] 3.430.2.7 Hospi ta .3.186659 l .8 2021-07-21 2021-07-21 Orders Istre, 1.2.840.1 [id number] 514460 7814 Methodi 00:00:00 00:00:00 Only Shell 69526.1.[address] [place] 3.430.2.7 Hospi ta .3.854817 l .8 2021-07-15 2021-07-15 Telephone Oleksandr, 1.2.840.1 [id number] 21 [id number] Methodi 00:00:00 00:00:[address] 3.430.2.7 Hospit a .3.186509 l .8 2021-07-15 2021-07-15 Travel 1.2.840.1 1.2.144.039 7870 050828 Methodi 00:00:00 00:00:[address] 3.430.2.7 0.2.7.3.698 Ho spita .3.314114 084.8 l .8 2021-07-10 2021-07-10 Treatment Shell Vargas 1.2.840.1 [id number] Methodi 09:00:00 10:00:00 Peggy Esparza 61098.1.[address] [place], Smooth 3.430.2.7 H ospita .3.652114 l .8 2021-07-10 2021-07-10 Plan of 1.2.840.1 [id number] 035592 3720 Methodi 00:00:00 00:00:[address] Documentat 3.430.2.7 Hos margie ion .3.343500 l .8 2021-07-09 2021-07-09 Travel 1.2.840.1 1.2.963.646 4190 733212 Methodi 00:00:00 00:00:[address] 3.430.2.7 0.2.7.3.698 Ho spita .3.309577 084.8 l .8 2021-07-09 2021-07-09 Orders Istre, 1.2.840.1 [id number] 789175 0575 Methodi 00:00:00 00:00:00 Only Shell 65650.1.[address] [place] 3.430.2.7 Hospi ta .3.542024 l .8 2021-07-03 2021-07-03 Travel 1.2.840.1 1.2.494.277 3457 928362 Methodi 00:00:00 00:00:[address] 3.430.2.7 0.2.7.3.698 Ho spita .3.312282 084.8 l .8 2021-06-30 2021-06-30 Emergency Tyshawn, Nelson 1.2.840.1 [id number] Methodi 14:43:00 20:06:[address] 3.430.2.7 Hospit a .3.405334 l .8 2021-06-19 2021-06-19 Orders [place], 1.2.840.1 [id number] 234671 4455 Methodi 00:00:00 00:00:00 Only Susanne 58979.1.[address] 3.430.2.7 Hospit a .3.056567 l .8 2021-06-18 2021-06-18 Orders Tran, 1.2.840.1 [id number] 952165 6565 Methodi 00:00:00 00:00:00 Only Kortney 57585.1.[address] 3.430.2.7 Hospit a .3.252055 l .8 2021-06-18 2021-06-18 Telephone Lopez, 1.2.840.1 [id number] 025 [id number] Methodi 00:00:00 00:00:[address] 3.430.2.7 Hospit a .3.481065 l .8 2021-06-16 2021-06-16 Office Prasanth, 1.2.840.1 406400318 329425 3137 Methodi 11:40:00 13:03:55 Visit Eddie Franco 38379.1.[address] 3.430.2.7 Hospit a .3.500234 l .8 2021-06-16 2021-06-16 Travel 1.2.840.1 1.2.167.081 9552 375102 Methodi 00:00:00 00:00:[address] 3.430.2.7 0.2.7.3.698 Ho spita .3.972170 084.8 l .8 2021-06-03 2021-06-03 Refill [place], 1.2.840.1 [id number] 603741 8852 Methodi 00:00:00 00:00:[address] 3.430.2.7 Hospit a .3.682365 l .8 2021-06-03 2021-06-03 Telephone Abreu, 1.2.840.1 [id number] 2099 480957 Methodi 00:00:00 00:00:[address] 3.430.2.7 Hospit a .3.053398 l .8 2021-06-02 2021-06-02 Emergency Gunnar, 1.2.840.1 [id number] 2 [id number] Methodi 10:56:00 13:23:00 Mario Crook 13383.1.1 [address] 3.430.2.7 Hospit a .3.224607 l .8 2021-06-02 2021-06-02 Orders Alicia, 1.2.840.1 636762226 427520 2761 Methodi 00:00:00 00:00:00 Only Shell 29240.1.[address] [place] 3.430.2.7 Hospi ta .3.679786 l .8 2021-05-30 2021-05-30 Treatment Shell Vargas 1.2.840.1 834153899 [id number] Methodi 10:00:00 11:00:00 Smooth [place] 02848.1.[address] 3.430.2.7 Hospit a .3.848958 l .8 2021-05-28 2021-05-28 Orders Alicia, 1.2.840.1 [id number] 805191 0951 Methodi 00:00:00 00:00:00 Only Shell 27088.1.[address] [place] 3.430.2.7 Hospi ta .3.543346 l .8 2021-05-27 2021-05-27 Travel 1.2.840.1 1.2.741.603 2417 806029 Methodi 00:00:00 00:00:[address] 3.430.2.7 0.2.7.3.698 Ho spita .3.869897 084.8 l .8 2021-05-19 2021-05-19 Evaluation Shell Vargas 1.2.840.1 [id number] [id number] Methodi 11:00:00 12:00:00 Peggy Esparza 86492.1.[address] [place], [place] 3.430.2.7 H ospita .3.077218 l .8 2021-05-19 2021-05-19 Plan of 1.2.840.1 [id number] 328787 1501 Methodi 00:00:00 00:00:[address] Documentat 3.430.2.7 Hos margie ion .3.841282 l .8 2021-05-19 2021-05-19 Travel 1.2.840.1 1.2.086.852 1355 053251 Methodi 00:00:00 00:00:[address] 3.430.2.7 0.2.7.3.698 Ho spita .3.767254 084.8 l .8 2021-05-09 2021-05-09 Travel 1.2.840.1 1.2.281.573 5668 [id number] Methodi 00:00:00 00:00:[address] 3.430.2.7 0.2.7.3.698 Ho spita .3.684407 084.8 l .8 2021-05-09 2021-05-09 Outpatient [facility] [id number] [place] 00:00:00 00:00:[address] PEGGY [address] 2021-05-06 2021-05-06 Orders Istre, 1.2.840.1 [id number] Methodi 00:00:00 00:00:00 Only Shell 96304.1.[address] [place] 3.430.2.7 Hospi ta .3.872459 l .8 2021-05-05 2021-05-05 Outpatient [facility] [id number] [place] 00:00:00 00:00:00 PEGGY [address]aleb [facility] 2021-05-04 2021-05-04 Emergency Oghogho, 1.2.840.1 [id number] Methodi 14:39:00 18:56:[address] 3.430.2.7 Hospit a .3.070350 l .8 2021-05-04 2021-05-04 Travel 1.2.840.1 1.2.235.111 3160 [id number] Methodi 00:00:00 00:00:[address] 3.430.2.7 0.2.7.3.698 Ho spita .3.901236 084.8 l .8 2021-05-02 2021-05-02 Outpatient [facility] [id number] [place] 00:00:00 00:00:00 [facility] 2021-04-30 2021-04-30 Travel 1.2.840.1 1.2.563.350 5172 [id number] Methodi 00:00:00 00:00:[address] 3.430.2.7 0.2.7.3.698 Ho spita .3.443245 084.8 l .8 2021-04-28 2021-04-28 Orders Istre, 1.2.840.1 [id number] 5263 Methodi 00:00:00 00:00:00 Only Shell 63922.1.[address] [place] 3.430.2.7 Hospi ta .3.577985 l .8 2021-04-17 2021-04-17 Office Istre, 1.2.840.1 [id number] 3530 Methodi 15:00:00 15:00:06 Visit Shell 19025.1.[address] [place] 3.430.2.7 Hospi ta .3.093542 l .8 2021-04-16 2021-04-16 Travel 1.2.840.1 1.2.627.837 1069 [id number] Methodi 00:00:00 00:00:[address] 3.430.2.7 0.2.7.3.698 Ho spita .3.535629 084.8 l .8 2021-04-12 2021-04-12 Emergency Svach, 1.2.840.1 [id number] Methodi 15:47:00 22:48:00 Shine Nunes 91349.1.[address] 3.430.2.7 Hospit a .3.878568 l .8 2021-04-08 2021-04-08 Travel 1.2.840.1 1.2.202.933 6837 743489 Methodi 00:00:00 00:00:[address] 3.430.2.7 0.2.7.3.698 Ho spita .3.030584 084.8 l .8 2021-03-28 2021-03-28 Office Rj Mireles [facility] [id number] [place] 08:30:00 09:30:00 Visit Jackie [facility] 2021-03-28 2021-03-[address] [facility] [id number] [place] 00:00:00 00:00:00 [facility] 2021-03-14 2021-03-14 Outpatient [facility] [id number] [place] 00:00:00 00:00:00 [facility] 2021-03-03 2021-03-03 Telephone Alicia, 1.2.840.1 [id number] Methodi 11:20:00 11:48:51 Consult Shell 95845.1.[address] [place] 3.430.2.7 Hospi ta .3.855085 l .8 2021-02-27 2021-02-27 Travel 1.2.840.1 1.2.700.967 5816 [id number] Methodi 00:00:00 00:00:[address] 3.430.2.7 0.2.7.3.698 Ho spita .3.265750 084.8 l .8 2021-02-19 2021-02-19 Outpatient CHARLA, [facility] [id number] [id number] [place] 00:00:00 00:00:00 PIMPRAPA 626 Metho di 2021-02-17 2021-02-17 Outpatient [facility] [id number] [place] 00:00:00 00:00:00 482 Method i 2021-02-17 2021-02-17 Outpatient SMALL, [facility] [id number] 406 [place] 00:00:00 00:00:00 PROCTOR 706 Method i 2021-02-10 2021-02-10 Outpatient TAVARES, [facility] [id number] [place] 00:00:00 00:00:00 PEGGY 856 Method i 2021-02-07 2021-02-07 Outpatient ALICIA, [facility] [id number] [place] 00:00:00 00:00:00 SHELL 793 Method i 2021-01-30 2021-01-31 Outpatient IMELDA, [facility] 900 [id number] 174 [place] 00:00:00 00:00:00 KRISTY 451 Method i 2021-01-25 2021-01-25 Emergency KENA KILLIAN [facility] 064 [id number] [place] 00:00:00 00:00:00 190 Method i 2021-01-24 2021-01-24 Outpatient VEJPONGSRd, [facility] 2100 [id number] [place] 00:00:00 00:00:00 PIMPRAPA 711 Metho di 2021-01-09 2021-01-09 Outpatient [facility] [id number] [place] 00:00:00 00:00:00 247 Method i 2020-12-29 2020-12-29 Emergency VASQUEZ, [facility] 064 [id number] 98 [place] 00:00:00 00:00:00 CRISTÓBAL 225 Method i 2020-12-23 2020-12-23 Outpatient PRASANTH, [facility] [id number] [place] 00:00:00 00:00:00 EDDIE 305 Method i 2020-12-11 2020-12-11 Emergency VASQUEZ, [facility] 064 [id number] 96 [place] 00:00:00 00:00:00 CRISTÓBAL 030 Method i 2020-12-08 2020-12-08 Emergency TRISTAN, [facility] 064 [id number] 26 [place] 00:00:00 00:00:00 TRUNG 699 Method i 2020-11-25 2020-11-26 Office Doug Estevez [facility] Encounter/ Legacy 00:00:00 00:00:00 Visit Symone Moreau 0391 Communi [id number] [facility] 2020-11-25 2020-11-26 Office Doug Estevez [facility] Encounter/ Legacy 00:00:00 00:00:00 Visit Symone Moreau 3531 Communi [id number] [facility] 2020-11-18 2020-11-18 Outpatient SMALL, [facility] [id number] [place] 00:00:00 00:00:00 PROCTOR 729 Method i 2020-11-02 2020-11-02 Emergency TERA, [facility] 195 [id number] [place] 00:00:00 00:00:00 ROGER 241 Method i 2020-10-29 2020-10-29 Outpatient STACI, [facility] [id number] [place] 00:00:00 00:00:00 PROCTOR 983 Method i 2020-10-25 2020-10-25 Outpatient CHARLA, [facility] [id number] [id number] [place] 00:00:00 00:00:00 PIMPRAPA 573 Metho di 2020-10-24 2020-10-24 Outpatient VEJPONGSA, [facility] [id number] [id number] [place] 00:00:00 00:00:00 P[address]PRAPA [address] 2020-10-18 2020-10-19 Emergency HOPE, [facility] 064 [id number] [place] 00:00:00 00:00:00 TRUNG [address] 2020-10-18 2020-10-18 Outpatient SMALL, [facility] [id number] [place] 00:00:00 00:00:00 PROCTOR 224 Method i 2020-10-11 2020-10-11 Emergency COURTNEY, [place] [address] [id number] [place] 00:00:00 00:00:00 TRUNG 080 Method i 2020-10-09 2020-10-09 Outpatient PRASANTH, [facility] [id number] [place] 00:00:00 00:00:00 EDDIE 020 Method i 2020-10-01 2020-10-01 Outpatient AHMED, [facility] [id number] [place] 00:00:00 00:00:00 MOHAMMAD 768 Metho di 2020-09-26 2020-09-26 Outpatient SMALL, [facility] [id number] [place] 00:00:00 00:00:00 PROCTOR [address] 2020-09-13 2020-09-13 Outpatient PRASANTH, [facility] [id number] [place] 00:00:00 00:00:00 EDDIE [address] 2020-09-11 2020-09-11 Outpatient VEJPONGSA, [facility] [id number] [id number] [place] 00:00:00 00:00:00 PIMPRAPA 754 Metho di 2020-08-23 2020-08-23 Outpatient AHMED, [facility] [id number] 605 [place] 00:00:00 00:00:00 MOHAMMAD [address] 2020-08-19 2020-08-21 Outpatient MELTON, [facility] [id number] 265 [place] 00:00:00 00:00:00 TRUNG [address] 2020-07-31 2020-08-01 Outpatient ARREDONDO, [facility] 321 [id number] [place] 00:00:00 00:00:00 RICKYHAN 628 Met hodi 2020-07-16 2020-07-16 Emergency HOPE, [facility] 064 [id number] 18 [place] 00:00:00 00:00:00 TRUNG [address] 2020-07-05 2020-07-05 Outpatient BROCK, [facility] [id number] [place] 00:00:00 00:00:00 [facility] 2020-07-05 2020-07-05 Emergency VASQUEZ, [facility] 064 [id number] 62 [place] 00:00:00 00:00:00 CRISTÓBAL 088 Method i 2020-06-28 2020-06-28 Outpatient SMALL, [facility] [id number] [place] 00:00:00 00:00:00 PROCTOR 174 Method i 2020-06-27 2020-06-27 Outpatient PRASANTH, [facility] [id number] [place] 00:00:00 00:00:00 EDDIE 576 Method i 2020-06-24 2020-06-24 Outpatient ISTRE, [facility] [id number] [place] 00:00:00 00:00:00 SHELL 509 Method i 2020-06-19 2020-06-20 Emergency ZOROASTRIAN, [facility] 064 [id number] [place] 00:00:00 00:00:00 NADIM 685 Method i 2020-06-11 2020-06-11 Outpatient SMALL, [facility] [id number] [place] 00:00:00 00:00:00 PROCTOR [address] 2020-06-11 2020-06-11 Outpatient SMALL, [facility] [id number] [place] 00:00:00 00:00:00 PROCTOR [address] 2020-06-06 2020-06-06 Outpatient ISTRE, [facility] [id number] [place] 00:00:00 00:00:00 SHELL [address] 2020-06-03 2020-06-03 Outpatient ISTRE, [facility] [id number] [place] 00:00:00 00:00:00 SHELL [address] 2020-06-03 2020-06-03 Outpatient ISTRE, [facility] [id number] [place] 00:00:00 00:00:00 SHELL 363 Method i 2020-05-26 2020-05-27 Outpatient STACI, [place] [address] [id number] [place] 00:00:00 00:00:00 HAYLEE 766 Method i 2020-05-24 2020-05-24 Emergency JOSSY, [facility] 06 [id number] 24 [place] 00:00:00 00:00:00 BELKIS 964 Method i 2020-05-23 2020-05-23 Emergency FORMAN, [facility] 06 [id number] [place] 00:00:00 00:00:00 TANIA 926 Method i 2020 2020 Outpatient ISTRE, [facility] [id number] [place] 00:00:00 00:00:00 SHELL 882 Method i 2020 2020 Emergency KI, [facility] 06 [id number] 65 [place] 00:00:00 00:00:00 KALIF 304 Method i 2020-05-20 2020-05-20 Outpatient ISTRE, [facility] [id number] [place] 00:00:00 00:00:00 SHELL 217 Method i 2020-05-13 2020-05-13 Outpatient MIRELES, [facility] [id number] [place] 00:00:00 00:00:00 TRACILYN Healt 2020-05-11 2020-05-11 Emergency HOPE, [facility] 064 [id number] 87 [place] 00:00:00 00:00:00 TRUNG 164 Method i 2020-05-07 2020-05-[address] [facility] [id number] [place] 07:48:18 07:48:18 Health 2020-04-15 2020-04-15 Emergency KENA KILLIAN [facility] 064 [id number] [place] 00:00:00 00:00:00 597 Method i 2020-04-01 2020-04-01 Emergency KI, [facility] 064 [id number] [place] 00:00:00 00:00:00 KALIF 631 Method i 2020-03-23 2020-03-24 Inpatient SEPTIMUS, [facility] 089 [id number] [place] 00:00:00 00:00:00 STEPHY 252 Method i 2020-03-23 2020-03-23 Emergency HOPE, [facility] [id number] 79 [place] 00:00:00 00:00:00 TRUNG [address] 2020-03-20 2020-03-20 Emergency ALTAGRACIA VILLASENOR [place] [address] [id number] [id number] [place] 00:00:00 00:00:00 875 Method i 2020-02-29 2020-03-01 Emergency DE CRANDALL, [place] [address] [id number] [place] 00:00:00 00:00:00 CHRISTOPHER 731 Me thodi 2020-02-05 2020-02-06 Emergency NORINSKY, [place] [address] [id number] [place] 00:00:00 00:00:00 KEM 185 Meth john 2020-02-03 2020-02-03 Emergency DE CRANDALL, [place] [address] [id number] 1541 [place] 00:00:00 00:00:00 CHRISTOPHER 451 Me thodi 2019-12-20 2019-12-21 Emergency NORINSKY, [place] [address] [id number] [place] 00:00:00 00:00:00 KEM 640 Meth john 2019-12-14 2019-12-14 Emergency KI, [place] [address] [id number] [place] 00:00:00 00:00:00 KALIF 126 Method i 2019-12-11 2019-12-11 Emergency HOPE, [place] [address] [id number] [place] 00:00:00 00:00:00 TRUNG 349 Method i 2019-12-08 2019-12-08 Emergency SUSHIL, [place] [address] [id number] [place] 00:00:00 00:00:00 ISAC 449 Me thodi 2019-11-24 2019-11-[address] [facility] [id number] [place] 00:00:00 00:00:00 [facility] 2019-11-21 2019-11-21 Emergency TYSHAWNJASBIR BATESH [facility] 064 [id number] [place] 00:00:00 00:00:[address] 2019-11-14 2019-11-[address] [facility] [id number] [place] 06:55:06 06:55:06 Health 2019-11-13 2019-11-[address] [facility] [id number] [place] 00:00:00 00:00:00 2019-11-10 2019-11-11 Emergency HOPE, [facility] 064 [id number] [place] 00:00:00 00:00:00 TRUNG [address] 2019-11-07 2019-11-[address] [facility] [id number] [place] 14:24:03 14:24:03 2019-11-07 2019-11-[address] [facility] [id number] [place] 12:22:44 12:22:44 2019-11-07 2019-11-[address] [facility] [id number] [place] 00:00:00 00:00:00 2019-11-07 2019-11-[address] [facility] [id number] [place] 00:00:00 00:00:00 Health 2019-10-30 2019-10-[address] [facility] [id number] [place] 11:49:58 11:49:58 Health 2019-10-30 2019-10-[address] [facility] [id number] [place] 00:00:00 00:00:00 Health 2019-10-12 2019-10-[address] [facility] [id number] [place] 00:00:00 00:00:00 Health 2019-10-10 2019-10-[address] [facility] [id number] [place] 08:15:33 08:15:33 Health 2019-10-09 2019-10-[address] [facility] [id number] [place] 00:00:00 00:00:00 Health 2019-09-25 2019-09-[address] [facility] [id number] [place] 00:00:00 00:00:00 Health 2019-09-19 2019-09-[address] [facility] [id number] [place] 15:17:15 15:17:15 Health 2019-09-12 2019-09-[address] [facility] [id number] [place] 09:33:27 09:33:27 Health 2019-09-12 2019-09-[address] [facility] [id number] [place] 08:35:47 08:35:47 Health 2019-09-12 2019-09-[address] [facility] [id number] [place] 00:00:00 00:00:00 2019-09-09 2019-09-09 Emergency HOPE [facility] 064 [id number] [place] 00:00:00 00:00:00 TRUNG [address] 2019-08-25 2019-08-[address] [facility] [id number] [place] 06:54:32 06:54:32 Health 2019-08-24 2019-08-[address] [facility] [id number] [place] 00:00:00 00:00:00 2019-08-23 2019-08-[address] [facility] [id number] [place] 00:00:00 00:00:00 2019-08-05 2019-08-05 Emergency VANDER [place] [address] [id number] [place] 00:00:00 00:00:00 OTILIO, [address] 2019-08-03 2019-08-03 Emergency [place] [facility] 2100 [id number] [place] 00:00:00 00:00:[address] 2019-07-24 2019-07-[address] [facility] [id number] [place] 08:35:14 08:35:14 Health 2019-06-21 2019-06-[address] [facility] [id number] [place] 00:00:00 00:00:00 Health 2019-06-15 2019-06-16 Emergency HOPE, [facility] [id number] 79 [place] 00:00:00 00:00:00 TRUNG [address] 2019-06-15 2019-06-15 Emergency [facility] [id number] [place] 14:03:00 14:03:00 Health 2019-06-14 2019-06-[address] [facility] [id number] [place] 00:00:00 00:00:00 Health 2019-06-08 2019-06-[address] [facility] [id number] [place] 13:49:26 13:49:26 Health 2019-06-08 2019-06-[address] [facility] [id number] [place] 13:11:00 13:11:00 Health 2019-06-08 2019-06-[address] [facility] [id number] [place] 00:00:00 00:00:00 Health 2019-06-07 2019-06-[address] [facility] [id number] [place] 12:06:12 12:06:12 Health 2019-06-07 2019-06-07 Emergency [facility] MED [id number] [place] 10:57:48 10:57:48 Health 2019-03-15 2019-03-[address] [facility] [id number] [place] 14:00:36 14:00:36 Health 2019-03-15 2019-03-[address] [facility] [id number] [place] 12:20:09 12:20:09 [facility] 2019-03-15 2019-03-[address] [facility] [id number] [place] 00:00:00 00:00:00 [facility] 2019-01-25 2019-01-[address] [facility] [id number] [place] 10:20:47 10:20:47 [facility] 2019-01-13 2019-01-[address] [facility] [id number] [place] 10:25:55 10:25:55 [facility] 2019-01-03 2019-01-[address] [facility] [id number] [place] 10:33:43 10:33:43 [facility] 2019-01-03 2019-01-[address] [facility] [id number] [place] 08:40:50 08:40:50 [facility] 2019-01-03 2019-01-[address] [facility] [id number] [place] 07:58:31 07:58:31 [facility] 2019-01-03 2019-01-[address] [facility] [id number] [place] 00:00:00 00:00:00 [facility] 2018-12-29 2018-12-[address] [facility] [id number] [place] 00:00:00 00:00:00 [facility] 2018-12-27 2018-12-[address] [facility] [id number] [place] 00:00:00 00:00:00 [facility] 2018-12-26 2018-12-[address] [facility] [id number] [place] 16:37:58 16:37:58 [facility] 2018-12-09 2018-12-[address] [facility] [id number] [place] 16:51:56 16:51:56 Health 2018-12-09 2018-12-[address] [facility] [id number] [place] 14:15:31 14:15:31 [facility] 2018-12-09 2018-12-[address] [facility] [id number] [place] 00:00:00 00:00:00 [facility] 2018-11-26 2018-11-26 Emergency [facility] [id number] [place] 16:08:40 16:08:40 [facility] 2018-01-17 2018-01-17 Outpatient E MYRNA CEDENO [facility] [id number] [place] 10:49:00 12:30:00 [facility] 2017-12-28 2017-12-28 Outpatient E MILES [facility] [id number] [place] 10:12:00 12:25:00 [facility] 2017-12-20 2017-12-20 Outpatient E MYRNA CEDENO [facility] [id number] [place] 23:13:00 23:50:00 [facility] 2017-10-15 2017-10-15 Outpatient E , [facility] [id number] [place] 09:57:00 11:15:00 [facility] Results Test Description Test Time Test Comments Results Result Comments Source ECG 12 lead 2022-03-24 04:27:49 Test Item Value Reference Range Interpretation Comme nts Ventricular rate (test code = 253) Atrial rate (test code = 255) AL interval (test code = 266) QRSD interval [...] of 28-NOV-2021 10:26,-No significant change was found- [address]2022-12-13 04:27:49 Test Item Value Reference Range Interpretation Comments Ventricular rate (test code = 253) Atrial rate (test code = 255) AL interval (test code = 266) QRSD interval [...] of 28-NOV-2021 10:26,-No significant change was found- [address]2022-12-13 04:27:49 Test Item Value Reference Range Interpretation Comments Ventricular rate (test code = 253) Atrial rate (test code = 255) AL interval (test code = 266) QRSD interval [...] of 28-NOV-2021 10:26,-No significant change was found- [address]2022-12-13 04:27:49 Test Item Value Reference Range Interpretation Comments Ventricular rate (test 71 code = 253) Atrial rate (test code 71 = 255) AL interval (test code 124 = 266) QRSD [...] of 28-NOV-2021 10:26,-No significant change was found- [address]2022-12-13 04:27:49 Test Item Value Reference Range Interpretation Comments Ventricular rate (test 71 code = 253) Atrial rate (test code 71 = 255) AL interval (test code 124 = 266) QRSD [...] of 28-NOV-2021 10:26,-No significant change was found- [address]2022-12-13 04:27:49 Test Item Value Reference Range Interpretation Comments Ventricular rate (test 71 code = 253) Atrial rate (test code 71 = 255) AL interval (test code 124 = 266) QRSD [...] of 28-NOV-2021 10:26,-No significant change was found- [address]2022-12-13 04:27:49 Test Item Value Reference Range Interpretation Comments Ventricular rate (test 71 code = 253) Atrial rate (test code 71 = 255) AL interval (test code 124 = 266) QRSD [...] of 28-NOV-2021 10:26,-No significant change was found- [address]2022-12-13 04:27:49 Test Item Value Reference Range Interpretation Comments Ventricular rate (test 71 code = 253) Atrial rate (test code 71 = 255) AL interval (test code 124 = 266) QRSD [...] of 28-NOV-2021 10:26,-No significant change was found- [address]2022-12-13 04:27:49 Test Item Value Reference Range Interpretation Comments Ventricular rate (test 71 code = 253) Atrial rate (test code 71 = 255) AL interval (test code 124 = 266) QRSD [...] of 28-NOV-2021 10:26,-No significant change was found- [address]2022-12-13 04:27:49 Test Item Value Reference Range Interpretation Comments Ventricular rate (test 71 code = 253) Atrial rate (test code 71 = 255) AL interval (test code 124 = 266) QRSD [...] of 28-NOV-2021 10:26,-No significant change was found- [address]2022-12-13 04:27:49 Test Item Value Reference Range Interpretation Comments Ventricular rate (test 71 code = 253) Atrial rate (test code 71 = 255) AL interval (test code 124 = 266) QRSD [...] of 28-NOV-2021 10:26,-No significant change was found- [address]2022-12-13 04:27:49 Test Item Value Reference Range Interpretation Comments Ventricular rate (test 71 code = 253) Atrial rate (test code 71 = 255) AL interval (test code 124 = 266) QRSD [...] of 28-NOV-2021 10:26,-No significant change was found- [address]2022-12-13 04:27:49 Test Item Value Reference Range Interpretation Comments Ventricular rate (test 71 code = 253) Atrial rate (test code 71 = 255) AL interval (test code 124 = 266) QRSD [...] of 28-NOV-2021 10:26,-No significant change was found- [address]2022-12-13 04:27:49 Test Item Value Reference Range Interpretation Comments Ventricular rate (test 71 code = 253) Atrial rate (test code 71 = 255) AL interval (test code 124 = 266) QRSD [...] of 28-NOV-2021 10:26,-No significant change was found- [place]052-11-10 23:39:00 Test Item Value Reference Range Interpretation Comments Urine culture (test SEE COMMENT Bacteriu brandon screen code = 1368993) negative. [facility]2022-11-10 23:39:00 Test Item Value Reference Range Interpretation Comments Urine culture (test SEE COMMENT Bacteriu brandon screen code = [id number]) negative. [address]11-10 23:39:00 Test Item Value Reference Range Interpretation Comments Urine culture (test SEE COMMENT Bacteriu brandon screen code = [id number]) negative. [address]11-10 23:39:00 Test Item Value Reference Range Interpretation Comments Urine culture (test SEE COMMENT Bacteriu brandon screen code = [id number]) negative. [facility]2022-11-10 23:39:00 Test Item Value Reference Range Interpretation Comments Urine culture (test SEE COMMENT Bacteriu brandon screen code = [id number]) negative. [address]11-10 23:39:00 Test Item Value Reference Range Interpretation Comments Urine culture (test SEE COMMENT Bacteriu brandon screen code = [id number]) negative. [address]11-10 23:39:00 Test Item Value Reference Range Interpretation Comments Urine culture (test SEE COMMENT Bacteriu brandon screen code = [id number]) negative. [address]11-10 23:39:00 Test Item Value Reference Range Interpretation Comments Urine culture (test SEE COMMENT Bacteriu brandon screen code = [id number]) negative. [address]11-10 23:39:00 Test Item Value Reference Range Interpretation Comments Urine culture (test SEE COMMENT Bacteriu brandon screen code = [id number]) negative. [address]11-10 23:39:00 Test Item Value Reference Range Interpretation Comments Urine culture (test SEE COMMENT Bacteriu brandon screen code = [id number]) negative. [facility] [id number] 23:39:00 Test Item Value Reference Range Interpretation Comments Urine culture (test SEE COMMENT Bacteriu brandon screen code = 0416022) negative. [facility] [id number] 23:39:00 Test Item Value Reference Range Interpretation Comments Urine culture (test SEE COMMENT Bacteriu brandon screen code = 1917113) negative. [facility] [id number] 23:39:00 Test Item Value Reference Range Interpretation Comments Urine culture (test SEE COMMENT Bacteriu brandon screen code = 1366902) negative. [facility] [id number] 23:39:00 Test Item Value Reference Range Interpretation Comments Urine culture (test SEE COMMENT Bacteriu brandon screen code = [id number]) negative. [facility]2022-11-10 23:39:00 Test Item Value Reference Range Interpretation Comments Urine culture (test SEE COMMENT Bacteriu brandon screen code = 7773084) negative. [facility]2022-11-10 23:39:00 Test Item Value Reference Range Interpretation Comments Urine culture (test SEE COMMENT Bacteriu brandon screen code = 4048834) negative. [facility] [id number] 23:39:00 Test Item Value Reference Range Interpretation Comments Urine culture (test SEE COMMENT Bacteriu brandon screen code = 5559243) negative. [facility] B surface [id number] 22:17:00 Test Item Value Reference Range Interpretation Comments Hepatitis B surface NON-REACTIVE NON-REACTIVE Ag (test code = 5196-1) RAC (test code = RAC) Performing Organization Information: Site ID: RGA Name: [facility] Address: [address] [place] [address] Director: Rajinder Grant [facility] with reflex to [id number] 22:17:00 Test Item Value Reference Range Interpretation Comments RPR (test code = NON-REACTIVE NON-REACTIVE 68027-3) RAC (test code = Performing Organization RAC) Information: Site ID: RGA Name: [facility] Address: [address] [place] [address] Director: Rajinder Grant [facility] C virus (HCV), quantitative [id number] 22:17:00 Test Item Value Reference Interpretation Comments Range HCV RNA, <15 NOT DETECTED NOT DETECTED quantitative PCR IU/mL (test code = 00826-7) HCV viral log <1.18 NOT DETECTED NOT DETECTED This bhupendra t was (test code = Log IU/mL performed using 31736-4) Real-Time Polym erase ChainReaction. Reportable Rang e: 15 IU/mL to 100,00 0,000 IU/mL(1.18 Log IU/mL to 8.00 Log IU/ mL). The analytical performance characteristics of thisassay have been determined by [employer]. Th e modifications h ave not been cleare d or approved bythe FDA. This assay has been validated pursu ant to the CLIA regulations and is used for clinic al purposes. For m ore information on this test, go to:http://educa tion. [employer] /faq/PGQ33w3(Th is link is being provided for informational/e ducat ional purposes only.) RAC (test code = Performing RAC) Organization Information: Site ID: IG [facility]: [facility] Address: [address] [place] [address] Director: Dr. Rajinder Grant [facility] [id number] 22:17:00 Test Item Value Reference Interpretation Comments Range Hepatitis C Ab (test REACTIVE NON-REACTIVE A code = 12314-0) Signal/cutoff (test >11.00 See_Comment H Based o n this code = 00329-3) result, the sample will be testedf or [...] RAC) Organization Information: Site ID: RGA [facility]: [facility] Address: [address] [place] [address] Director: Rajinder Grant Lab Interpretation Abnormal (test code = 95080-7) [facility] type 1/2 combined Ab, [id number] 22:17:00 Test Item Value Reference Interpretation Comments Range HSV 1 IgM NEGATIVE (test code = 72712-6) HSV 2 IgM NEGATIVE REFERENCE RANG E: NEGATIVE HSV (test IgM is detectab le in serum code = from >90% of pa tracey 58445-6) primary HSV inf ection. However, HSV Ig [...] performancechar acteristics have been deter mined by [employer].It has not been cleared or appr luis by FDA. This assay hasb een validated pursuant to the CLIA regulations and isused for clinical purpos es. RAC (test Performing code = Organization RAC) Information: Site ID: EZ Name: [employer] [facility], Address: [address] [place] [address] Director: Crista Camacho MD,PhD,BARI [facility]/antibody, fourth generation, with reflexes 2022-02-11 22:17:00 Test Item Value Reference Range Interpretation Comments HIV NON-REACTIVE NON-REACTIVE HIV-1 antigen a nd antigen/ant HIV-1/HIV-2 ant ibodies ibody 4th were notdetecte d. There gen (test is no laborator y evidence code = of HIVinfection . PLEASE 62324-5) NOTE: This info rmation has been disclo [...] ad ditional information ple ase refer tohttp://educat ion.AFINOS.[employer]/ faq/NTV302 (This link is b eing provided for informational/e ducational purposes only.) The performance of this assay has not been clinicallyvalid ated in patients less t lagunas 2 years old. RAC (test Performing code = RAC) Organization Information: Site ID: RGA [facility]: [facility] Address: [address] [place] [address] Director: Rajinder Grant [facility]HSV 1 and 2 specific Ab [id number] 22:17:00 Test Item Value Reference Interpretation Comments [...] additional information, pl ease refer to http://educatio n.[employer] /faq/FA Q118 (This link is being provided for informational/e ducatio nal purposes on ly.) RAC (test code = Performing RAC) Organization Information: Site ID: IG [facility]: [facility] Address: [address] [place] [address] Director: Dr. Rajinder Grant Lab Interpretation Abnormal (test code = 67653-0) [facility] B surface [id number] 22:17:00 Test Item Value Reference Range Interpretation Comments Hepatitis B surface NON-REACTIVE NON-REACTIVE Ag (test code = 5196-1) RAC (test code = RAC) Performing Organization Information: Site ID: RGA Name: [facility] Address: [address] [place] [address] Director: [facility]inder [facility] with [facility] to [id number] 22:17:00 Test Item Value Reference Range Interpretation Comments RPR (test code = NON-REACTIVE NON-REACTIVE 09147-2) RAC (test code = Performing Organization RAC) Information: Site ID: RGA [facility]: [facility] Address: [address] [place] [address] Director: Rajinder Grant [facility] C virus (HCV), quantitative [id number] 22:17:00 Test Item Value Reference Interpretation Comments Range HCV RNA, <15 NOT DETECTED NOT DETECTED quantitative PCR IU/mL (test code = 85671-3) HCV viral log <1.18 NOT DETECTED NOT DETECTED This bhupendra t was (test code = Log IU/mL performed using 76186-8) Real-Time Polym erase [employer]. Reportable Rang e: 15 IU/mL to 100,00 0,000 IU/mL(1.18 Log IU/mL to 8.00 Log IU/ mL). The analytical performance characteristics of thisassay have been determined by [employer]. Th e modifications h ave not been cleare d or approved bythe FDA. This assay has been validated pursu ant to the CLIA regulations and is used for clinic al purposes. For m ore information on this test, go to:http://educa tion. [employer] /faq/OAG81l6( is link is being provided for informational/e ducat ional purposes only.) RAC (test code = Performing RAC) Organization Information: Site ID: IG Name: [facility] Address: [address] [place] [address] Director: Dr. Rajinder Grant [facility] C [id number] 22:17:00 Test Item Value Reference Interpretation Comments Range Hepatitis C Ab (test REACTIVE NON-REACTIVE A code = 29636-7) Signal/cutoff (test >11.00 See_Comment H Based o n this code = 74107-2) result, the sample will be testedf or [...] RAC) Organization Information: Site ID: RGA Name: [facility] Address: [address] [place] [address] Director: Rajinder Grant Lab Interpretation Abnormal (test code = 84647-0) [facility] type 1/2 combined Ab, [id number] 22:17:00 Test Item Value Reference Interpretation Comments Range HSV 1 IgM NEGATIVE (test code = 86687-5) HSV 2 IgM NEGATIVE REFERENCE RANG E: NEGATIVE HSV (test IgM is detectab le in serum code = [facility] >90[facility] 29105-[facility]) primary HSV inf ection. However, HSV Ig [...] performancechar acteristics have been deter mined by [employer].It has not been cleared or appr luis by FDA. This assay hasb een validated pursuant to the CLIA regulations and isused for clinical purpos es. RAC (test Performing code = Organization RAC) Information: Site ID: EZ Name: [employer], Address: [address] [place] [address] Director: Crista Camacho MD,PhD,BARI [facility]/2 antigen/antibody, fourth generation, with reflexes 2022-02-11 22:17:00 Test Item Value Reference Range Interpretation Comments HIV NON-REACTIVE NON-REACTIVE HIV-1 antigen a nd antigen/ant HIV-1/HIV-2 ant ibodies ibody 4th were notdetecte d. There gen (test is no laborator y evidence code = of HIVinfection . PLEASE 35909-2) NOTE: This info rmation has been disclo [...] ad ditional information ple ase refer tohttp://educat ion.[employer]/ faq/ERK463 (This link is b eing provided for informational/e ducational purposes only.) The performance of this assay has not been clinicallyvalid ated in patients less t lagunas 2 years old. RAC (test Performing code = RAC) Organization Information: Site ID: RGA Name: [facility] Address: [address] [place] [address] Director: Rajinder Grant [facility] CityV 1 and 2 specific Ab [id number] 22:17:00 Test Item Value Reference Interpretation Comments [...] ease refer to http://educatio n.Ques tDiagnostics.co m/faq/ ZVH131 (This li nk is being provided for informational/e ducati onal purposes o nly.) RAC (test code = Performing RAC) Organization Information: Site ID: IG Name: [facility] Address: [address] [place] [address] Director: Dr. Rajinder Grant Lab Interpretation Abnormal (test code = 40262-8) [facility] B surface [id number] 22:17:00 Test Item Value Reference Range Interpretation Comments Hepatitis B surface NON-REACTIVE NON-REACTIVE Ag (test code = 5196-1) RAC (test code = RAC) Performing Organization Information: Site ID: RGA Name: [facility] Address: [address] [place] [address] Director: Rajinder Grant [facility] with reflex to [id number] 22:17:00 Test Item Value Reference Range Interpretation Comments RPR (test code = NON-REACTIVE NON-REACTIVE 23511-2) RAC (test code = Performing Organization RAC) Information: Site ID: RGA Name: [facility] Address: [address] [place] [address] Director: Rajinder Grant [facility] C virus (HCV), quantitative [id number] 22:17:00 Test Item Value Reference Interpretation Comments Range HCV RNA, <15 NOT DETECTED NOT DETECTED quantitative PCR IU/mL (test code = 17409-3) HCV viral log <1.18 NOT DETECTED NOT DETECTED This bhupendra t was (test code = Log IU/mL performed using 57828-3) Real-Time Polym erase [employer]. Reportable Rang e: 15 IU/mL to 100,00 0,000 IU/mL(1.18 Log IU/mL to 8.00 Log IU/ mL). The analytical performance characteristics of thisassay have been determined by [employer]. Th e modifications h ave not been cleare d or approved bythe FDA. This assay has been validated pursu ant to the CLIA regulations and is used for clinic al purposes. For m ore information on this test, go to:http://educa dylon. [employer] /faq/OAP84o3(Th is link is being provided for informational/e ducat ional purposes only.) RAC (test code = Performing RAC) Organization Information: Site ID: IG Name: [facility] Address: [address] [place] [address] Director: Dr. Rajinder Grant [facility] [id number] 22:17:00 Test Item Value Reference Interpretation Comments Range Hepatitis C Ab (test REACTIVE NON-REACTIVE A code = 40287-8) Signal/cutoff (test >11.00 See_Comment H Based o n this code = 24557-3) result, the sample will be testedf or [...] RAC) Organization Information: Site ID: RGA Name: [facility] Address: [address] [place] [address] Director: Rajinder Grant Lab Interpretation Abnormal (test code = 60786-2) [facility] type 1/2 combined Ab, [id number] 22:17:00 Test Item Value Reference Interpretation Comments Range HSV 1 IgM NEGATIVE (test code = 44184-1) HSV 2 IgM NEGATIVE REFERENCE RANG E: NEGATIVE HSV (test IgM is detectab le in serum code = from >90[facility] of [facility] [address]62[address]-8) primary HSV inf ection. However, HSV Ig [...] performancechar acteristics have been deter mined by [employer].It has not been cleared or appr luis by FDA. This assay hasb een validated pursuant to the CLIA regulations and isused for clinical purpos es. RAC (test Performing code = Organization RAC) Information: Site ID: EZ Name: [employer], Address: [address] [place] [address] Director: Crista Camacho MD,PhD,BARI [facility]villeHIV 1/2 antigen/antibody, fourth generation, with reflexes 2022-02-11 22:17:00 Test Item Value Reference Range Interpretation Comments HIV NON-REACTIVE NON-REACTIVE HIV-1 antigen a nd antigen/ant HIV-1/HIV-2 ant ibodies ibody 4th were notdetecte d. There gen (test is no laborator y evidence code = of HIVinfection . PLEASE 22885-2) NOTE: This info rmation has been disclo [...] ad ditional information ple ase refer tohttp://educat ion.AFINOS.[employer]/ faq/QSY401 (This link is b eing provided for informational/e ducational purposes only.) The performance of this assay has not been clinicallyvalid ated in patients less t lagunas 2 years old. RAC (test Performing code = RAC) Organization Information: Site ID: RGA Name: [facility] Address: [address] [place] [address] Director: Rajinder AlvarezSelect at BellevilleHSV 1 and 2 specific Ab [id number] 22:17:00 Test Item Value Reference Interpretation Comments [...] ease refer to http://educatio n.Ques tDiagnostics.co m/faq/ NRU160 (This li nk is being provided for informational/e ducati onal purposes o nly.) RAC (test code = Performing RAC) Organization Information: Site ID: IG Name: [facility] Address: [address] [place] [address] Director: Dr. Rajinder Grant Lab Interpretation Abnormal (test code = 54153-2) [facility] B surface [id number] 22:17:00 Test Item Value Reference Range Interpretation Comments Hepatitis B surface NON-REACTIVE NON-REACTIVE Ag (test code = 5196-1) RAC (test code = RAC) Performing Organization Information: Site ID: RGA Name: [facility] Address: [address] [place] [address] Director: Rajinder Grant [facility]RPR with reflex to [id number] 22:17:00 Test Item Value Reference Range Interpretation Comments RPR (test code = NON-REACTIVE NON-REACTIVE 08818-3) RAC (test code = Performing Organization RAC) Information: Site ID: RGA Name: [facility] Address: [address] [place] [address] Director: Rajinder Grant [facility] C virus (HCV), quantitative [id number] 22:17:00 Test Item Value Reference Interpretation Comments Range HCV RNA, <15 NOT DETECTED NOT DETECTED quantitative PCR IU/mL (test code = 41481-0) HCV viral log <1.18 NOT DETECTED NOT DETECTED This bhupednra t was (test code = Log IU/mL performed using 21525-4) Real-Time Polym erase [employer]. Reportable Rang e: 15 IU/mL to 100,00 0,000 IU/mL(1.18 Log IU/mL to 8.00 Log IU/ mL). The analytical performance characteristics of thisassay have been determined by [employer]. Th e modifications h ave not been cleare d or approved bythe FDA. This assay has been validated pursu ant to the CLIA regulations and is used for clinic al purposes. For m ore information on this test, go to:http://educa tion. [employer] /faq/LGV02v6(Th is link is being provided for informational/e ducat ional purposes only.) RAC (test code = Performing RAC) Organization Information: Site ID: IG Name: [facility] Address: [address] [place] [address] Director: Dr. Rajinder Grant [facility] C [id number] 22:17:00 Test Item Value Reference Interpretation Comments Range Hepatitis C Ab (test REACTIVE NON-REACTIVE A code = 37079-9) Signal/cutoff (test >11.00 See_Comment H Based o n this code = 38032-1) result, the sample will be testedf or [...] RAC) Organization Information: Site ID: RGA Name: [facility] Address: [address] [place] [address] Director: Rajinder Grant Lab Interpretation Abnormal (test code = 06492-7) [facility] type 1/2 combined Ab, [id number] 22:17:00 Test Item Value Reference Interpretation Comments Range HSV 1 IgM NEGATIVE (test code = 96631-9) HSV 2 IgM NEGATIVE REFERENCE RANG E: NEGATIVE HSV (test IgM is detectab le in serum code = from >90% of al tracey 23461-4) primary HSV inf ection. However, HSV Ig [...] performancechar acteristics have been deter mined by [employer].It has not been cleared or appr luis by FDA. This assay hasb een validated pursuant to the CLIA regulations and isused for clinical purpos es. RAC (test Performing code = Organization RAC) Information: Site ID: EZ Name: [employer], Address: [address] [place] [address] Director: Crista Camacho MD,PhD,BARI [facility]villeHIV 1/2 antigen/antibody, fourth generation, with reflexes 2022-02-11 22:17:00 Test Item Value Reference Range Interpretation Comments HIV NON-REACTIVE NON-REACTIVE HIV-1 antigen a nd antigen/ant HIV-1/HIV-2 ant ibodies ibody 4th were notdetecte d. There gen (test is no laborator y evidence code = of HIVinfection . PLEASE 77010-8) NOTE: This info rmation has been disclo [...] ad ditional information ple ase refer tohttp://educat ion.AFINOS.[employer]/ faq/UFX770 (This link is b eing provided for informational/e ducational purposes only.) The performance of this assay has not been clinicallyvalid ated in patients less t lagunas 2 years old. RAC (test Performing code = RAC) Organization Information: Site ID: RGA Name: [facility] Address: [address] [place] [address] Director: Rajinder Grant [facility]HSV 1 and 2 specific Ab [id number] 22:17:00 Test Item Value Reference Interpretation Comments [...] ease refer to http://educatio n.Ques tDiagnostics.co m/faq/ MHH119 (This li nk is being provided for informational/e ducati onal purposes o nly.) RAC (test code = Performing RAC) Organization Information: Site ID: IG Name: [facility] Address: [address] [place] [address] Director: Dr. Rajinder Grant Lab Interpretation Abnormal (test code = 06278-7) [facility] surface [id number] 22:17:00 Test Item Value Reference Range Interpretation Comments Hepatitis B surface NON-REACTIVE NON-REACTIVE Ag (test code = 5196-1) RAC (test code = RAC) Performing Organization Information: Site ID: RGA Name: [facility] Address: [address] [place] [address] Director: Rajinder Grant [facility]RPR with reflex to [id number] 22:17:00 Test Item Value Reference Range Interpretation Comments RPR (test code = NON-REACTIVE NON-REACTIVE 38794-5) RAC (test code = Performing Organization RAC) Information: Site ID: RGA Name: [facility] Address: [address] [place] [address] Director: Rajinder Grant [facility] C virus (HCV), quantitative [id number] 22:17:00 Test Item Value Reference Interpretation Comments Range HCV RNA, <15 NOT DETECTED NOT DETECTED quantitative PCR IU/mL (test code = 61827-9) HCV viral log <1.18 NOT DETECTED NOT DETECTED This bhupendra t was (test code = Log IU/mL performed using 54976-4) Real-Time Polym erase [employer]Re[employer]. Reportable Rang e: 15 IU/mL to 100,00 0,000 IU/mL(1.18 Log IU/mL to 8.00 Log IU/ mL). The analytical performance characteristics of thisassay have been determined by [employer]. Th e modifications h ave not been cleare d or approved bythe FDA. This assay has been validated pursu ant to the CLIA regulations and is used for clinic al purposes. For m ore information on this test, go to:http://educa tion. [employer] /faq/TDV48c1(Th is link is being provided for informational/e ducat ional purposes only.) RAC (test code = Performing RAC) Organization Information: Site ID: IG Name: [facility] Address: [address] [place] [address] Director: Dr. Rajinder Grant [facility] C [id number] 22:17:00 Test Item Value Reference Interpretation Comments Range Hepatitis C Ab (test REACTIVE NON-REACTIVE A code = 31207-8) Signal/cutoff (test >11.00 See_Comment H Based o n this code = 34729-9) result, the sample will be testedf or [...] RAC) Organization Information: Site ID: RGA Name: [facility] Address: [address] [place] [address] Director: Rajinder Grant Lab Interpretation Abnormal (test code = 52332-6) [facility] type 1/2 combined Ab, [id number] 22:17:00 Test Item Value Reference Interpretation Comments Range HSV 1 IgM NEGATIVE (test code = 08826-9) HSV 2 IgM NEGATIVE REFERENCE RANG E: NEGATIVE HSV (test IgM is detectab le in serum code = from >90% of pa fayejoanna [address]-2) primary HSV inf ection. However, HSV Ig [...] performancechar acteristics have been deter mined by [employer].It has not been cleared or appr luis by FDA. This assay hasb een validated pursuant to the CLIA regulations and isused for clinical purpos es. RAC (test Performing code = Organization RAC) Information: Site ID: EZ Name: [employer], Address: [address] [place] [address] Director: Crista Camacho MD,PhD,BARI [facility]HIV 1/2 antigen/antibody, fourth generation, with reflexes 2022-02-11 22:17:00 Test Item Value Reference Range Interpretation Comments HIV NON-REACTIVE NON-REACTIVE HIV-1 antigen a nd antigen/ant HIV-1/HIV-2 ant ibodies ibody 4th were notdetecte d. There gen (test is no laborator y evidence code = of HIVinfection . PLEASE 68739-3) NOTE: This info rmation has been disclo [...] ad ditional information ple ase refer tohttp://educat ion.[employer]/ faq/CCG698 (This link is b eing provided for informational/e ducational purposes only.) The performance of this assay has not been clinicallyvalid ated in patients less t lagunas 2 years old. RAC (test Performing code = RAC) Organization Information: Site ID: RGA Name: [facility] Address: [address] [place] [address] Director: Rajinder Grant [facility]HSV 1 and 2 specific Ab [id number] 22:17:00 Test Item Value Reference Interpretation Comments [...] information, pl ease refer to http://educatio nReza tDiagnostics.Playrific m/faq/ RRE451 (This li nk is being provided for informational/e ducati onal purposes o nly.) RAC (test code = Performing RAC) Organization Information: Site ID: TIM Name: [facility] Address: [address] [place] [address] Director: Dr. Rajinder Grant Lab Interpretation Abnormal (test code = 61364-0) [facility] B surface [id number] 22:17:00 Test Item Value Reference Range Interpretation Comments Hepatitis B surface NON-REACTIVE NON-REACTIVE Ag (test code = 5196-1) RAC (test code = RAC) Performing Organization Information: Site ID: RGA Name: [facility] Address: [address] [place] [address] Director: Rajinder Grant [facility] with reflex to [id number] 22:17:00 Test Item Value Reference Range Interpretation Comments RPR (test code = NON-REACTIVE NON-REACTIVE 86178-3) RAC (test code = Performing Organization RAC) Information: Site ID: RGA Name: [facility] Address: [address] [place] [address] Director: Rajinder Grant [facility] C virus (HCV), quantitative [id number] 22:17:00 Test Item Value Reference Interpretation Comments Range HCV RNA, <15 NOT DETECTED NOT DETECTED quantitative PCR IU/mL (test code = 31004-0) HCV viral log <1.18 NOT DETECTED NOT DETECTED This bhupendra t was (test code = Log IU/mL performed using 83631-6) Real-Time Polym erase ChainReaction. Reportable Rang e: 15 IU/mL to 100,00 0,000 IU/mL(1.18 Log IU/mL to 8.00 Log IU/ mL). The analytical performance characteristics of thisassay have been determined by [employer]. Th e modifications h ave not been cleare d or approved bythe FDA. This assay has been validated pursu ant to the CLIA regulations and is used for clinic al purposes. For m ore information on this test, go to:http://educa tion. [employer] /faq/MNP77g4(Th is link is being provided for informational/e ducat ional purposes only.) RAC (test code = Performing RAC) Organization Information: Site ID: IG [facility]: [facility] Address: [address] [place] [address] Director: Dr. Rajinder Grant [facility] C [id number] 22:17:00 Test Item Value Reference Interpretation Comments Range Hepatitis C Ab (test REACTIVE NON-REACTIVE A code = 24809-3) Signal/cutoff (test >11.00 See_Comment H Based o n this code = 76011-4) result, the sample will be testedf or [...] RAC) Organization Information: Site ID: RGA Name: [facility] Address: [address] [place] [address] Director: Rajinder Grant Lab Interpretation Abnormal (test code = 04052-3) [facility]2 combined Ab, [id number] 22:17:00 Test Item Value Reference Interpretation Comments Range HSV 1 IgM NEGATIVE (test code = 62079-4) HSV 2 IgM NEGATIVE REFERENCE RANG E: NEGATIVE HSV (test IgM is detectab le in serum code = from >90% of al tracey 08015-0) primary HSV inf ection. However, HSV Ig [...] performancechar acteristics have been deter mined by [employer].It has not been cleared or appr luis by FDA. This assay hasb een validated pursuant to the CLIA regulations and isused for clinical purpos es. RAC (test Performing code = Organization RAC) Information: Site ID: EZ Name: [employer], Address: [address] [place] [address] Director: Crista Camacho MD,PhD,BARI [facility]2 antigen/antibody, fourth generation, with reflexes 2022-02-11 22:17:00 Test Item Value Reference Range Interpretation Comments HIV NON-REACTIVE NON-REACTIVE HIV-1 antigen a nd antigen/ant HIV-1/HIV-2 ant ibodies ibody 4th were notdetecte d. There gen (test is no laborator y evidence code = of HIVinfection . PLEASE 81044-8) NOTE: This info rmation has been disclo [...] ad ditional information ple ase refer tohttp://educat ion.[employer]/ faq/YRR615 (This link is b eing provided for informational/e ducational purposes only.) The performance of this assay has not been clinicallyvalid ated in patients less t lagunas 2 years old. RAC (test Performing code = RAC) Organization Information: Site ID: RGA [facility]: [facility] Address: [address] [place] [address] Director: Rajinder Grant [facility]V 1 and 2 specific Ab [id number] 22:17:00 Test Item Value Reference Interpretation Comments [...] ease refer to http://educatio n.Tri tDiagnostics.co m/faq/ BCL609 (This li nk is being provided for informational/e ducati onal purposes o nly.) RAC (test code = Performing RAC) Organization Information: Site ID: IG Name: [facility] Address: [address] [place] [address] Director: Dr. Rajinder Grant Lab Interpretation Abnormal (test code = 97396-4) [facility] B surface [id number] 22:17:00 Test Item Value Reference Range Interpretation Comments Hepatitis B surface NON-REACTIVE NON-REACTIVE Ag (test code = 5196-1) RAC (test code = RAC) Performing Organization Information: Site ID: RGA Name: [facility] Address: [address] [place] [address] Director: Rajinder Grant [facility] with reflex to [id number] 22:17:00 Test Item Value Reference Range Interpretation Comments RPR (test code = NON-REACTIVE NON-REACTIVE 89534-7) RAC (test code = Performing Organization RAC) Information: Site ID: RGA [facility]: [facility] Address: [address] [place] [address] Director: Rajinder Grant [facility] C virus (HCV), quantitative [id number] 22:17:00 Test Item Value Reference Interpretation Comments Range HCV RNA, <15 NOT DETECTED NOT DETECTED quantitative PCR IU/mL (test code = 80786-3) HCV viral log <1.18 NOT DETECTED NOT DETECTED This bhupendra t was (test code = Log IU/mL performed using 51011-0) Real-Time Polym erase ChainReaction. Reportable Rang e: 15 IU/mL to 100,00 0,000 IU/mL(1.18 Log IU/mL to 8.00 Log IU/ mL). The analytical performance characteristics of thisassay have been determined by [employer]. Th e modifications h ave not been cleare d or approved bythe FDA. This assay has been validated pursu ant to the CLIA regulations and is used for clinic al purposes. For m ore information on this test, go to:http://educa tion. [employer] /faq/CNB74b4(Th is link is being provided for informational/e ducat ional purposes only.) RAC (test code = Performing RAC) Organization Information: Site ID: IG Name: [facility] Address: [address] [place] [address] Director: Dr. Rajinder Grant [facility] C [id number] 22:17:00 Test Item Value Reference Interpretation Comments Range Hepatitis C Ab (test REACTIVE NON-REACTIVE A code = 69219-2) Signal/cutoff (test >11.00 <=1.00 H Based o n this code = 68686-1) result, the sample will be testedf or HCV RNA by a Nucleic Acid Amplification T est (NAAT)to determ ine if the patient has a current activeinfection . RAC (test code = Performing RAC) Organization Information: Site ID: RGA Name: [facility] Address: [address] [place] [address] Director: Rajinder Grant Lab Interpretation Abnormal (test code = 17310-6) [facility] type 1/2 combined Ab, [id number] 22:17:00 Test Item Value Reference Interpretation Comments Range HSV 1 IgM NEGATIVE (test code = 81240-9) HSV 2 IgM NEGATIVE REFERENCE RANG E: NEGATIVE HSV (test IgM is detectab le in serum code = from >90% of al [facility] 32258-4) primary HSV inf ection. However, HSV Ig [...] performancechar acteristics have been deter mined by [employer].It has not been cleared or appr luis by FDA. This assay hasb een validated pursuant to the CLIA regulations and isused for clinical purpos es. RAC (test Performing code = Organization RAC) Information: Site ID: EZ Name: [employer], Address: [address] [place] [address] Director: Crista Camacho MD,PhD,BARI [facility]/2 antigen/antibody, fourth generation, with reflexes 2022-02-11 22:17:00 Test Item Value Reference Range Interpretation Comments HIV NON-REACTIVE NON-REACTIVE HIV-1 antigen a nd antigen/ant HIV-1/HIV-2 ant ibodies ibody 4th were notdetecte d. There gen (test is no laborator y evidence code = of HIVinfection . PLEASE 17736-1) NOTE: This info rmation has been disclo [...] ad ditional information ple ase refer tohttp://educat ion.[employer]IN[employer]/ faq/RLC319 (This link is b eing provided for informational/e ducational purposes only.) The performance of this assay has not been clinicallyvalid ated in patients less t lagunas 2 years old. RAC (test Performing code = RAC) Organization Information: Site ID: RGA Name: [facility] Address: [address] [place] [address] Director: Rajinder Parker [facility]HS[facility] and 2 specific Ab [id number] 22:17:00 Test Item Value Reference Interpretation Comments [...] ease refer to http://educatio n.Tri tDiagnostics.co m/faq/ BNG694 (This li nk is being provided for informational/e ducati onal purposes o nly.) RAC (test code = Performing RAC) Organization Information: Site ID: IG Name: [facility] Address: [address] [place] [address] Director: Dr. Rajinder Grant Lab Interpretation Abnormal (test code = 42065-0) [facility] surface [id number] 22:17:00 Test Item Value Reference Range Interpretation Comments Hepatitis B surface NON-REACTIVE NON-REACTIVE Ag (test code = 5196-1) RAC (test code = RAC) Performing Organization Information: Site ID: RGA Name: [facility] Address: [address] [place] [address] Director: Rajinder Grant [facility] with reflex to [id number] 22:17:00 Test Item Value Reference Range Interpretation Comments RPR (test code = NON-REACTIVE NON-REACTIVE 95801-6) RAC (test code = Performing Organization RAC) Information: Site ID: RGA Name: [facility] Address: [address] [place] [address] Director: Rajinder Grant [facility] C virus (HCV), quantitative [id number] 22:17:00 Test Item Value Reference Interpretation Comments Range HCV RNA, <15 NOT DETECTED NOT DETECTED quantitative PCR IU/mL (test code = 31186-3) HCV viral log <1.18 NOT DETECTED NOT DETECTED This bhupendra t was (test code = Log IU/mL performed using 73080-3) Real-Time Polym erase ChainReaction. Reportable Rang e: 15 IU/mL to 100,00 0,000 IU/mL(1.18 Log IU/mL to 8.00 Log IU/ mL). The analytical performance characteristics of thisassay have been determined by [employer]. Th e modifications h ave not been cleare d or approved bythe FDA. This assay has been validated pursu ant to the CLIA regulations and is used for clinic al purposes. For m ore information on this test, go to:http://educa tion. [employer] /faq/CWQ33y0(Th is link is being provided for informational/e ducat ional purposes only.) RAC (test code = Performing RAC) Organization Information: Site ID: IG Name: [facility] Address: [address] [place] [address] Director: Dr. Rajinder Grant [facility] C [id number] 22:17:00 Test Item Value Reference Interpretation Comments Range Hepatitis C Ab (test REACTIVE NON-REACTIVE A code = 31623-7) Signal/cutoff (test >11.00 <=1.00 H Based o n this code = 40632-3) result, the sample will be testedf or HCV RNA by a Nucleic Acid Amplification T est (NAAT)to determ ine if the patient has a current activeinfection . RAC (test code = Performing RAC) Organization Information: Site ID: RGA Name: [facility] Lab Address: [address] [place] [address] Director: Rajinder Grant Lab Interpretation Abnormal (test code = 27426-2) [facility] type 1/2 combined Ab, [id number] 22:17:00 Test Item Value Reference Interpretation Comments Range HSV 1 IgM NEGATIVE (test code = 42455-1) HSV 2 IgM NEGATIVE REFERENCE RANG E: NEGATIVE HSV (test IgM is detectab le in serum code = from >90% of pa tracey 55799-8) primary HSV inf ection. However, HSV Ig [...] performancechar acteristics have been deter mined by [employer].It has not been cleared or appr luis by FDA. This assay hasb een validated pursuant to the CLIA regulations and isused for clinical purpos es. RAC (test Performing code = Organization RAC) Information: Site ID: EZ Name: [employer], Address: [address] [place] [address] Director: Crista Camacho MD,PhD,BARI [facility]villeHIV 1/2 antigen/antibody, fourth generation, with reflexes 2022-02-11 22:17:00 Test Item Value Reference Range Interpretation Comments HIV NON-REACTIVE NON-REACTIVE HIV-1 antigen a nd antigen/ant HIV-1/HIV-2 ant ibodies ibody 4th were notdetecte d. There gen (test is no laborator y evidence code = of HIVinfection . PLEASE 51370-6) NOTE: This info rmation has been disclo [...] ad ditional information ple ase refer tohttp://educat ion.[employer]/ faq/WZQ770 (This link is b eing provided for informational/e ducational purposes only.) The performance of this assay has not been clinicallyvalid ated in patients less t lagunas 2 years old. RAC (test Performing code = RAC) Organization Information: Site ID: KATERINA Name: [facility] Address: [address] [place] [address] Director: Rajinder Grant [facility] 1 and 2 specific Ab [id number] 22:17:00 Test Item Value Reference Interpretation Comments [...] ease refer to http://educatio n.Tri tDiagnostics.co m/faq/ HTQ143 (This li nk is being provided for informational/e ducati onal purposes o nly.) RAC (test code = Performing RAC) Organization Information: Site ID: IG Name: [facility] Address: [address] [place] [address] Director: Dr. Rajinder Grant Lab Interpretation Abnormal (test code = 50604-0) [facility] surface [id number] 22:17:00 Test Item Value Reference Range Interpretation Comments Hepatitis B surface NON-REACTIVE NON-REACTIVE Ag (test code = 5196-1) RAC (test code = RAC) Performing Organization Information: Site ID: RGA Name: [facility] Address: [address] [place] [address] Director: Rajinder Grant [facility] with reflex to [id number] 22:17:00 Test Item Value Reference Range Interpretation Comments RPR (test code = NON-REACTIVE NON-REACTIVE 34721-8) RAC (test code = Performing Organization RAC) Information: Site ID: RGA Name: [facility] Address: [address] [place] [address] Director: Rajinder Grant [facility] C virus (HCV), quantitative [id number] 22:17:00 Test Item Value Reference Interpretation Comments Range HCV RNA, <15 NOT DETECTED NOT DETECTED quantitative PCR IU/mL (test code = 61035-9) HCV viral log <1.18 NOT DETECTED NOT DETECTED This bhupendra t was (test code = Log IU/mL performed using 64551-0) Real-Time Polym erase ChainReaction. Reportable Rang e: 15 IU/mL to 100,00 0,000 IU/mL(1.18 Log IU/mL to 8.00 Log IU/ mL). The analytical performance characteristics of thisassay have been determined by [employer]. Th e modifications h ave not been cleare d or approved bythe FDA. This assay has been validated pursu ant to the CLIA regulations and is used for clinic al purposes. For m ore information on this test, go to:http://educa tion. [employer] /faq/VEP59l9(Th is link is being provided for informational/e ducat ional purposes only.) RAC (test code = Performing RAC) Organization Information: Site ID: IG Name: [facility] Address: [address] [place] [address] Director: Dr. Rajinder Grant [facility] C [id number] 22:17:00 Test Item Value Reference Interpretation Comments Range Hepatitis C Ab (test REACTIVE NON-REACTIVE A code = 40450-1) Signal/cutoff (test >11.00 <=1.00 H Based o n this code = 48887-5) result, the sample will be testedf or HCV RNA by a Nucleic Acid Amplification T est (NAAT)to determ ine if the patient has a current activeinfection . RAC (test code = Performing RAC) Organization Information: Site ID: RGA Name: [facility] Address: [address] [place] [address] Director: Rajinder Grant Lab Interpretation Abnormal (test code = 60515-5) [facility]2 combined Ab, [id number] 22:17:00 Test Item Value Reference Interpretation Comments Range HSV 1 IgM NEGATIVE (test code = 49683-9) HSV 2 IgM NEGATIVE REFERENCE RANG E: NEGATIVE HSV (test IgM is detectab le in serum code = from >90% of [facility] [address]-8) primary HSV inf ection. However, HSV Ig [...] performancechar acteristics have been deter mined by [employer].It has not been cleared or appr luis by FDA. This assay hasb een validated pursuant to the CLIA regulations and isused for clinical purpos es. RAC (test Performing code = Organization RAC) Information: Site ID: EZ Name: [employer], Address: [address] [place] [address] Director: Crista Camacho MD,PhD,BARI [facility]2 antigen/antibody, fourth generation, with reflexes 2022-02-11 22:17:00 Test Item Value Reference Range Interpretation Comments HIV NON-REACTIVE NON-REACTIVE HIV-1 antigen a nd antigen/ant HIV-1/HIV-2 ant ibodies ibody 4th were notdetecte d. There gen (test is no laborator y evidence code = of HIVinfection . PLEASE 57707-5) NOTE: This info rmation has been disclo [...] ad ditional information ple ase refer tohttp://educat ion.[employer]/ faq/MZB995 (This link is b eing provided for informational/e ducational purposes only.) The performance of this assay has not been clinicallyvalid ated in patients less t lagunas 2 years old. RAC (test Performing code = RAC) Organization Information: Site ID: RGA Name: [facility] Address: [address] [place] [address] Director: Rajinder Grant [facility] 1 and 2 specific Ab [id number] 22:17:00 Test Item Value Reference Interpretation Comments [...] ease refer to http://educatio nReza tDiagnostics.co m/faq/ PHJ683 (This li nk is being provided for informational/e ducati onal purposes o nly.) RAC (test code = Performing RAC) Organization Information: Site ID: IG Name: [facility] Address: [address] [place] [address] Director: Dr. Rajinder Grant Lab Interpretation Abnormal (test code = 09490-0) [facility] surface [id number] 22:17:00 Test Item Value Reference Range Interpretation Comments Hepatitis B surface NON-REACTIVE NON-REACTIVE Ag (test code = 5196-1) RAC (test code = RAC) Performing Organization Information: Site ID: RGA Name: [facility] Address: [address] [place] [address] Director: Rajinder Grant [facility] with reflex to [id number] 22:17:00 Test Item Value Reference Range Interpretation Comments RPR (test code = NON-REACTIVE NON-REACTIVE 07790-6) RAC (test code = Performing Organization RAC) Information: Site ID: RGA Name: [facility] Address: [address] [place] [address] Director: Rajinder Grant [facility] C virus (HCV), quantitative [id number] 22:17:00 Test Item Value Reference Interpretation Comments Range HCV RNA, <15 NOT DETECTED NOT DETECTED quantitative PCR IU/mL (test code = 34436-9) HCV viral log <1.18 NOT DETECTED NOT DETECTED This bhupendra t was (test code = Log IU/mL performed using 86745-5) Real-Time Polym erase ChainReaction. Reportable Rang e: 15 IU/mL to 100,00 0,000 IU/mL(1.18 Log IU/mL to 8.00 Log IU/ mL). The analytical performance characteristics of thisassay have been determined by [employer]. Th e modifications h ave not been cleare d or approved bythe FDA. This assay has been validated pursu ant to the CLIA regulations and is used for clinic al purposes. For m ore information on this test, go to:http://educa tion. [employer] /faq/AVW29i7(Th is link is being provided for informational/e ducat ional purposes only.) RAC (test code = Performing RAC) Organization Information: Site ID: IG Name: [facility] Address: [address] [place] [address] Director: Dr. Rajinder Grant [facility] C [id number] 22:17:00 Test Item Value Reference Interpretation Comments Range Hepatitis C Ab (test REACTIVE NON-REACTIVE A code = 93219-1) Signal/cutoff (test >11.00 <=1.00 H Based o n this code = 72580-1) result, the sample will be testedf or HCV RNA by a Nucleic Acid Amplification T est (NAAT)to determ ine if the patient has a current activeinfection . RAC (test code = Performing RAC) Organization Information: Site ID: RGA Name: [facility] Address: [address] [place] [address] Director: Rajinder Grant Lab Interpretation Abnormal (test code = 76383-0) [facility] type 1/2 combined Ab, [id number] 22:17:00 Test Item Value Reference Interpretation Comments Range HSV 1 IgM NEGATIVE (test code = 66210-6) HSV 2 IgM NEGATIVE REFERENCE RANG E: NEGATIVE HSV (test IgM is detectab le in serum code = from >90% of al [facility] 39104-0) primary HSV inf ection. However, HSV Ig [...] performancechar acteristics have been deter mined by [employer].It has not been cleared or appr luis by FDA. This assay hasb een validated pursuant to the CLIA regulations and isused for clinical purpos es. RAC (test Performing code = Organization RAC) Information: Site ID: EZ Name: [employer], Address: [address] [place] [address] Director: Crista Camacho MD,PhD,BARI [facility]2 antigen/antibody, fourth generation, with reflexes 2022-02-11 22:17:00 Test Item Value Reference Range Interpretation Comments HIV NON-REACTIVE NON-REACTIVE HIV-1 antigen a nd antigen/ant HIV-1/HIV-2 ant ibodies ibody 4th were notdetecte d. There gen (test is no laborator y evidence code = of HIVinfection . PLEASE 04162-4) NOTE: This info rmation has been disclo [...] ad ditional information ple ase refer tohttp://educat ion.[employer]/ faq/KHO176 (This link is b eing provided for informational/e ducational purposes only.) The performance of this assay has not been clinicallyvalid ated in patients less t lagunas 2 years old. RAC (test Performing code = RAC) Organization Information: Site ID: RGA Name: [facility] Address: [address] [place] [address] Director: Rajinder Grant [facility] CityV 1 and 2 specific Ab [id number] 22:17:00 Test Item Value Reference Interpretation Comments [...] ease refer to http://educatio nReza tDiagnostics.co m/faq/ FPA982 (This li nk is being provided for informational/e ducati onal purposes o nly.) RAC (test code = Performing RAC) Organization Information: Site ID: IG Name: [facility] Address: [address] [place] [address] Director: Dr. Rajinder Grant Lab Interpretation Abnormal (test code = 28208-8) [facility] surface [id number] 22:17:00 Test Item Value Reference Range Interpretation Comments Hepatitis B surface NON-REACTIVE NON-REACTIVE Ag (test code = 5196-1) RAC (test code = RAC) Performing Organization Information: Site ID: RGA Name: [facility] Address: [address] [place] [address] Director: Rajinder Grant [facility]RP with reflex to [id number] 22:17:00 Test Item Value Reference Range Interpretation Comments RPR (test code = NON-REACTIVE NON-REACTIVE 35059-2) RAC (test code = Performing Organization RAC) Information: Site ID: RGA Name: [facility] Address: [address] [place] [address] Director: Rajinder Grant [facility] C virus (HCV), quantitative [id number] 22:17:00 Test Item Value Reference Interpretation Comments Range HCV RNA, <15 NOT DETECTED NOT DETECTED quantitative PCR IU/mL (test code = 05540-4) HCV viral log <1.18 NOT DETECTED NOT DETECTED This bhupendra t was (test code = Log IU/mL performed using 02282-1) Real-Time Polym erase ChainReaction. Reportable Rang e: 15 IU/mL to 100,00 0,000 IU/mL(1.18 Log IU/mL to 8.00 Log IU/ mL). The analytical performance characteristics of thisassay have been determined by [employer]. Th e modifications h ave not been cleare d or approved bythe FDA. This assay has been validated pursu ant to the CLIA regulations and is used for clinic al purposes. For m ore information on this test, go to:http://susiea dylon. [employer] /faq/ZXS07f5(Th is link is being provided for informational/e ducat ional purposes only.) RAC (test code = Performing RAC) Organization Information: Site ID: IG Name: [facility] Address: [address] [place] [address] Director: Dr. Rajinder Grant [facility] C [id number] 22:17:00 Test Item Value Reference Interpretation Comments Range Hepatitis C Ab (test REACTIVE NON-REACTIVE A code = 69461-5) Signal/cutoff (test >11.00 <=1.00 H Based o n this code = 04542-5) result, the sample will be testedf or HCV RNA by a Nucleic Acid Amplification T est (NAAT)to determ ine if the patient has a current activeinfection . RAC (test code = Performing RAC) Organization Information: Site ID: RGA [facility]: [facility] Address: [address] [place] [address] Director: Rajinder Grant Lab Interpretation Abnormal (test code = 71715-4) [facility] type [facility]2 combined Ab, [id number] 22:17:00 Test Item Value Reference Interpretation Comments Range HSV 1 IgM NEGATIVE (test code = 12184-9) HSV 2 IgM NEGATIVE REFERENCE RANG E: NEGATIVE HSV (test IgM is detectab le in serum code = from >90% of al [facility] [address]-5) primary HSV inf ection. However, HSV Ig [...] performancechar acteristics have been deter mined by [employer].It has not been cleared or appr luis by FDA. This assay hasb een validated pursuant to the CLIA regulations and isused for clinical purpos es. RAC (test Performing code = Organization RAC) Information: Site ID: EZ Name: [employer], Address: [address] [place] [address] Director: Crista Camacho MD,PhD,BARI [facility]/2 antigen/antibody, fourth generation, with reflexes 2022-02-11 22:17:00 Test Item Value Reference Range Interpretation Comments HIV NON-REACTIVE NON-REACTIVE HIV-1 antigen a nd antigen/ant HIV-1/HIV-2 ant ibodies ibody 4th were notdetecte d. There gen (test is no laborator y evidence code = of HIVinfection . PLEASE 08958-5) NOTE: This info rmation has been disclo [...] ad ditional information ple ase refer tohttp://educat ion.AFINOS.[employer]/ faq/DMM582 (This link is b eing provided for informational/e ducational purposes only.) The performance of this assay has not been clinicallyvalid ated in patients less t lagunas 2 years old. RAC (test Performing code = RAC) Organization Information: Site ID: RGA [facility]: [facility] Address: [address] [place] [address] Director: Rajinder Grant [facility]iscoHSV 1 and 2 specific Ab [id number] 22:17:00 Test Item Value Reference Interpretation Comments [...] ease refer to http://educatio n.Ques tDiagnostics.co m/faq/ BCE761 (This li nk is being provided for informational/e ducati onal purposes o nly.) RAC (test code = Performing RAC) Organization Information: Site ID: IG Name: [facility] Address: [address] [place] [address] Director: Dr. Rajinder Grant Lab Interpretation Abnormal (test code = 41619-6) [facility] B surface [id number] 22:17:00 Test Item Value Reference Range Interpretation Comments Hepatitis B surface NON-REACTIVE NON-REACTIVE Ag (test code = 5196-1) RAC (test code = RAC) Performing Organization Information: Site ID: RGA Name: [facility] Address: [address] [place] [address] Director: Rajinder Grant [facility] FriscoRPR with reflex to [id number] 22:17:00 Test Item Value Reference Range Interpretation Comments RPR (test code = NON-REACTIVE NON-REACTIVE 61776-5) RAC (test code = Performing Organization RAC) Information: Site ID: RGA [facility]: [facility] Address: [address] [place] [address] Director: Rajinder Grant [facility] C virus (HCV), quantitative [id number] 22:17:00 Test Item Value Reference Interpretation Comments Range HCV RNA, <15 NOT DETECTED NOT DETECTED quantitative PCR IU/mL (test code = 95167-2) HCV viral log <1.18 NOT DETECTED NOT DETECTED This bhupendra t was (test code = Log IU/mL performed using 60707-2) Real-Time Polym erase ChainReaction. Reportable Rang e: 15 IU/mL to 100,00 0,000 IU/mL(1.18 Log IU/mL to 8.00 Log IU/ mL). The analytical performance characteristics of thisassay have been determined by [employer]. Th e modifications h ave not been cleare d or approved bythe FDA. This assay has been validated pursu ant to the CLIA regulations and is used for clinic al purposes. For m ore information on this test, go to:http://educa Quantified Skinon. [employer] /faq/CEH30x7( is link is being provided for informational/e ducat ional purposes only.) RAC (test code = Performing RAC) Organization Information: Site ID: IG Name: [facility] Address: [address] [place] [address] Director: Dr. Rajinder Grant [facility] C [id number] 22:17:00 Test Item Value Reference Interpretation Comments Range Hepatitis C Ab (test REACTIVE NON-REACTIVE A code = 71669-8) Signal/cutoff (test >11.00 See_Comment H Based o n this code = 98780-1) result, the sample will be testedf or [...] RAC) Organization Information: Site ID: RGA Name: [facility] Address: [address] [place] [address] Director: Rajinder Grant Lab Interpretation Abnormal (test code = 65260-5) [facility] type 1/2 combined Ab, [id number] 22:17:00 Test Item Value Reference Interpretation Comments Range HSV 1 IgM NEGATIVE (test code = 28468-4) HSV 2 IgM NEGATIVE REFERENCE RANG E: NEGATIVE HSV (test IgM is detectab le in serum code = from >90% of pa tracey 33120-3) primary HSV inf ection. However, HSV Ig [...] performancechar acteristics have been deter mined by [employer].It has not been cleared or appr luis by FDA. This assay hasb een validated pursuant to the CLIA regulations and isused for clinical purpos es. RAC (test Performing code = Organization RAC) Information: Site ID: EZ Name: [employer], Address: [address] [place] [address] Director: Crista Camacho MD,PhD,BARI [facility]/antibody, fourth generation, with reflexes 2022-02-11 22:17:00 Test Item Value Reference Range Interpretation Comments HIV NON-REACTIVE NON-REACTIVE HIV-1 antigen a nd antigen/ant HIV-1/HIV-2 ant ibodies ibody 4th were notdetecte d. There gen (test is no laborator y evidence code = of HIVinfection . PLEASE 88352-8) NOTE: This info rmation has been disclo [...] ad ditional information ple ase refer tohttp://educat ion.[employer]/ faq/HXQ839 (This link is b eing provided for informational/e ducational purposes only.) The performance of this assay has not been clinicallyvalid ated in patients less t lagunas 2 years old. RAC (test Performing code = RAC) Organization Information: Site ID: BEBA Name: [facility] Address: [address] [place] [address] Director: Rajinder Grant [facility] 1 and 2 specific Ab [id number] 22:17:00 Test Item Value Reference Interpretation Comments [...] ease refer to http://educatio n.Tri tDiagnostics.co m/faq/ IMV140 (This li nk is being provided for informational/e ducati onal purposes o nly.) RAC (test code = Performing RAC) Organization Information: Site ID: IG Name: [facility] Address: [address] [place] [address] Director: Dr. Rajinder Grant Lab Interpretation Abnormal (test code = 10226-7) [facility] B surface [id number] 22:17:00 Test Item Value Reference Range Interpretation Comments Hepatitis B surface NON-REACTIVE NON-REACTIVE Ag (test code = 5196-1) RAC (test code = RAC) Performing Organization Information: Site ID: RGA Name: [facility] Address: [address] [place] [address] Director: Rajinder Grant [facility] reflex to [id number] 22:17:00 Test Item Value Reference Range Interpretation Comments RPR (test code = NON-REACTIVE NON-REACTIVE 43374-2) RAC (test code = Performing Organization RAC) Information: Site ID: RGA Name: [facility] Address: [address] [place] [address] Director: Rajinder Grant [facility] C virus (HCV), quantitative [id number] 22:17:00 Test Item Value Reference Interpretation Comments Range HCV RNA, <15 NOT DETECTED NOT DETECTED quantitative PCR IU/mL (test code = 90583-2) HCV viral log <1.18 NOT DETECTED NOT DETECTED This bhupendra t was (test code = Log IU/mL performed using 35855-4) Real-Time Polym erase ChainReaction. Reportable Rang e: 15 IU/mL to 100,00 0,000 IU/mL(1.18 Log IU/mL to 8.00 Log IU/ mL). The analytical performance characteristics of thisassay have been determined by [employer]. Th e modifications h ave not been cleare d or approved bythe FDA. This assay has been validated pursu ant to the CLIA regulations and is used for clinic al purposes. For m ore information on this test, go to:http://educa tion. [employer] /faq/ZTC24l5(Th is link is being provided for informational/e ducat ional purposes only.) RAC (test code = Performing RAC) Organization Information: Site ID: IG Name: [facility] Address: [address] [place] [address] Director: Dr. Rajinder Grant [facility] C [id number] 22:17:00 Test Item Value Reference Interpretation Comments Range Hepatitis C Ab (test REACTIVE NON-REACTIVE A code = 37886-0) Signal/cutoff (test >11.00 See_Comment H Based o n this code = 44478-3) result, the sample will be testedf or [...] RAC) Organization Information: Site ID: RGA Name: [facility] Address: [address] [place] [address] Director: Rajinder Grant Lab Interpretation Abnormal (test code = 49270-8) [facility] type 1/2 combined Ab, [id number] 22:17:00 Test Item Value Reference Interpretation Comments Range HSV 1 IgM NEGATIVE (test code = 08134-4) HSV 2 IgM NEGATIVE REFERENCE RANG E: NEGATIVE HSV (test IgM is detectab le in serum code = from >90% of al [facility] [address]-8) primary HSV inf ection. However, HSV Ig [...] performancechar acteristics have been deter mined by [employer].It has not been cleared or appr luis by FDA. This assay hasb een validated pursuant to the CLIA regulations and isused for clinical purpos es. RAC (test Performing code = Organization RAC) Information: Site ID: EZ Name: [employer], Address: [address] [place] [address] Director: Crista Camacho MD,PhD,BARI [facility]HIV 1/2 antigen/antibody, fourth generation, with reflexes 2022-02-11 22:17:00 Test Item Value Reference Range Interpretation Comments HIV NON-REACTIVE NON-REACTIVE HIV-1 antigen a nd antigen/ant HIV-1/HIV-2 ant ibodies ibody 4th were notdetecte d. There gen (test is no laborator y evidence code = of HIVinfection . PLEASE 72340-4) NOTE: This info rmation has been disclo [...] ad ditional information ple ase refer tohttp://educat ion.[employer]/ faq/ZSR775 (This link is b eing provided for informational/e ducational purposes only.) The performance of this assay has not been clinicallyvalid ated in patients less t lagunas 2 years old. RAC (test Performing code = RAC) Organization Information: Site ID: RGA Name: [facility] Address: [address] [place] [address] Director: Rajinder Grant [facility]iscoHSV 1 and 2 specific Ab [id number] 22:17:00 Test Item Value Reference Interpretation Comments [...] ease refer to http://educatio n.Ques tDiagnostics.co m/faq/ PIV757 (This li nk is being provided for informational/e ducati onal purposes o nly.) RAC (test code = Performing RAC) Organization Information: Site ID: IG Name: [facility] Address: [address] [place] [address] Director: Dr. Rajinder Grant Lab Interpretation Abnormal (test code = 01058-0) [facility] B surface [id number] 22:17:00 Test Item Value Reference Range Interpretation Comments Hepatitis B surface NON-REACTIVE NON-REACTIVE Ag (test code = 5196-1) RAC (test code = RAC) Performing Organization Information: Site ID: RGA Name: [facility] Address: [address] [place] [address] Director: Rajinder Grant [facility]iscoRP with reflex to [id number] 22:17:00 Test Item Value Reference Range Interpretation Comments RPR (test code = NON-REACTIVE NON-REACTIVE 11110-6) RAC (test code = Performing Organization RAC) Information: Site ID: RGA Name: [facility] Address: [address] [place] [address] Director: Rajinder Grant [facility] C virus (HCV), quantitative [id number] 22:17:00 Test Item Value Reference Interpretation Comments Range HCV RNA, <15 NOT DETECTED NOT DETECTED quantitative PCR IU/mL (test code = 74780-5) HCV viral log <1.18 NOT DETECTED NOT DETECTED This bhupendra t was (test code = Log IU/mL performed using 49119-2) Real-Time Polym erase ChainReaction. Reportable Rang e: 15 IU/mL to 100,00 0,000 IU/mL(1.18 Log IU/mL to 8.00 Log IU/ mL). The analytical performance characteristics of thisassay have been determined by [employer]. Th e modifications h ave not been cleare d or approved bythe FDA. This assay has been validated pursu ant to the CLIA regulations and is used for clinic al purposes. For m ore information on this test, go to:http://educa tion. [employer] /faq/NHQ30r2(Th is link is being provided for informational/e ducat ional purposes only.) RAC (test code = Performing RAC) Organization Information: Site ID: IG Name: [facility] Address: [address] [place] [address] Director: Dr. Rajinder Grant [facility]iscoHep[facility] C [id number] 22:17:00 Test Item Value Reference Interpretation Comments Range Hepatitis C Ab (test REACTIVE NON-REACTIVE A code = 07288-1) Signal/cutoff (test >11.00 See_Comment H Based o n this code = 34751-4) result, the sample will be testedf or [...] RAC) Organization Information: Site ID: RGA [facility]: [facility] Address: [address] [place] [address] Director: Rajinder Grant Lab Interpretation Abnormal (test code = 58289-9) [facility] type 1/2 combined Ab, [id number] 22:17:00 Test Item Value Reference Interpretation Comments Range HSV 1 IgM NEGATIVE (test code = 54193-8) HSV 2 IgM NEGATIVE REFERENCE RANG E: NEGATIVE HSV (test IgM is detectab le in serum code = [facility] >90[facility] [address]-[facility]) primary HSV inf ection. However, HSV Ig [...] performancechar acteristics have been deter mined by [employer].It has not been cleared or appr luis by FDA. This assay hasb een validated pursuant to the CLIA regulations and isused for clinical purpos es. RAC (test Performing code = Organization RAC) Information: Site ID: EZ Name: [employer], Address: [address] [place] [address] Director: Crista Camacho MD,PhD,BARI [facility]iscoHIV 1/2 antigen/antibody, fourth generation, with reflexes 2022-02-11 22:17:00 Test Item Value Reference Range Interpretation Comments HIV NON-REACTIVE NON-REACTIVE HIV-1 antigen a nd antigen/ant HIV-1/HIV-2 ant ibodies ibody 4th were notdetecte d. There gen (test is no laborator y evidence code = of HIVinfection . PLEASE 65494-4) NOTE: This info rmation has been disclo [...] ad ditional information ple ase refer tohttp://educat ion.AFINOS.[employer]/ faq/SVX378 (This link is b eing provided for informational/e ducational purposes only.) The performance of this assay has not been clinicallyvalid ated in patients less t lagunas 2 years old. RAC (test Performing code = RAC) Organization Information: Site ID: RGA Name: [facility] Address: [address] [place] [address] Director: Rajinder Grant [facility]iscoHSV 1 and 2 specific Ab [id number] 22:17:00 Test Item Value Reference Interpretation Comments [...] ease refer to http://educatio n.Ques tDiagnostics.co m/faq/ GEG122 (This li nk is being provided for informational/e ducati onal purposes o nly.) RAC (test code = Performing RAC) Organization Information: Site ID: IG Name: [facility] Address: [address] [place] [address] Director: Dr. Rajinder Grant Lab Interpretation Abnormal (test code = 11634-5) [facility] [id number] 22:17:00 Test Item Value Reference Range Interpretation Comments Hepatitis B surface NON-REACTIVE NON-REACTIVE Ag (test code = 5196-1) RAC (test code = RAC) Performing Organization Information: Site ID: RGA Name: [facility] Address: [address] [place] [address] Director: Rajinder Grant [facility]iscoRPR with reflex to [id number] 22:17:00 Test Item Value Reference Range Interpretation Comments RPR (test code = NON-REACTIVE NON-REACTIVE 62715-0) RAC (test code = Performing Organization RAC) Information: Site ID: RGA Name: [facility] Address: [address] [place] [address] Director: Rajinder Grant [facility] C virus (HCV), quantitative [id number] 22:17:00 Test Item Value Reference Interpretation Comments Range HCV RNA, <15 NOT DETECTED NOT DETECTED quantitative PCR IU/mL (test code = 63350-3) HCV viral log <1.18 NOT DETECTED NOT DETECTED This bhupendra t was (test code = Log IU/mL performed using 52868-9) Real-Time Polym erase ChainReaction. Reportable Rang e: 15 IU/mL to 100,00 0,000 IU/mL(1.18 Log IU/mL to 8.00 Log IU/ mL). The analytical performance characteristics of thisassay have been determined by [employer]. Th e modifications h ave not been cleare d or approved bythe FDA. This assay has been validated pursu ant to the CLIA regulations and is used for clinic al purposes. For m ore information on this test, go to:http://educa tion. [employer] /faq/GQR73k7(Th is link is being provided for informational/e ducat ional purposes only.) RAC (test code = Performing RAC) Organization Information: Site ID: IG Name: [facility] Address: [address] [place] [address] Director: Dr. Rajinder Grant [facility] C [id number] 22:17:00 Test Item Value Reference Interpretation Comments Range Hepatitis C Ab (test REACTIVE NON-REACTIVE A code = 04014-8) Signal/cutoff (test >11.00 <=1.00 H Based o n this code = 17869-8) result, the sample will be testedf or HCV RNA by a Nucleic Acid Amplification T est (NAAT)to determ ine if the patient has a current activeinfection . RAC (test code = Performing RAC) Organization Information: Site ID: RGA Name: [facility] Address: [address] [place] [address] Director: Rajinder Grant Lab Interpretation Abnormal (test code = 36782-8) [facility] type 1/2 combined Ab, [id number] 22:17:00 Test Item Value Reference Interpretation Comments Range HSV 1 IgM NEGATIVE (test code = 06478-8) HSV 2 IgM NEGATIVE REFERENCE RANG E: NEGATIVE HSV (test IgM is detectab le in serum code = from >90% of al tracey 06572-0) primary HSV inf ection. However, HSV Ig [...] performancechar acteristics have been deter mined by [employer].It has not been cleared or appr luis by FDA. This assay hasb een validated pursuant to the CLIA regulations and isused for clinical purpos es. RAC (test Performing code = Organization RAC) Information: Site ID: EZ Name: [employer], Address: [address] [place] [address] Director: Crista Camacho MD,PhD,BARI [facility]villeHIV 1/2 antigen/antibody, fourth generation, with reflexes 2022-02-11 22:17:00 Test Item Value Reference Range Interpretation Comments HIV NON-REACTIVE NON-REACTIVE HIV-1 antigen a nd antigen/ant HIV-1/HIV-2 ant ibodies ibody 4th were notdetecte d. There gen (test is no laborator y evidence code = of HIVinfection . PLEASE 29946-4) NOTE: This info rmation has been disclo theresa peck from records wh ose confidentiality may beprotected by state law. If your state r equires suchprotection, then the state law prohi bits you frommaking any further disclosure of t he informationwith out the specific writte n consent of the personto whom it pertains, or as otherwise permitted by rodriguez caryeA general authori zation for the release of medical orother informa tion is NOT sufficient for this purpose. For ad ditional information ple ase refer tohttp://educat ion.[employer]/ faq/XOJ932 (This link is b eing provided for informational/e ducational purposes only.) The performance of this assay has not been clinicallyvalid ated in patients less t lagunas 2 years old. RAC (test Performing code = RAC) Organization Information: Site ID: RGA Name: [facility] Address: [address] [place] [address] Director: Rajinder Grant [facility]iscoHSV 1 and 2 specific Ab [id number] 22:17:00 Test Item Value Reference Interpretation Comments [...] ease refer to http://educatio n.Ques tDiagnostics.co m/faq/ UNC223 (This li nk is being provided for informational/e ducati onal purposes o nly.) RAC (test code = Performing RAC) Organization Information: Site ID: IG Name: [facility] Lab Address: [address] [place] [address] Director: Dr. Rajinder Grant Lab Interpretation Abnormal (test code = 13269-8) [facility]Hep[facility] B surface [id number] 22:17:00 Test Item Value Reference Range Interpretation Comments Hepatitis B surface NON-REACTIVE NON-REACTIVE Ag (test code = 5196-1) RAC (test code = RAC) Performing Organization Information: Site ID: RGA Name: [facility] Address: [address] [place] [address] Director: Rajinder Grant [facility]iscoRP with reflex to [id number] 22:17:00 Test Item Value Reference Range Interpretation Comments RPR (test code = NON-REACTIVE NON-REACTIVE 93048-3) RAC (test code = Performing Organization RAC) Information: Site ID: RGA Name: [facility] Address: [address] [place] [address] Director: Rajinder Grant [facility] C virus (HCV), quantitative [id number] 22:17:00 Test Item Value Reference Interpretation Comments Range HCV RNA, <15 NOT DETECTED NOT DETECTED quantitative PCR IU/mL (test code = 28376-4) HCV viral log <1.18 NOT DETECTED NOT DETECTED This bhupendra t was (test code = Log IU/mL performed using 23394-3) Real-Time Polym erase ChainReaction. Reportable Rang e: 15 IU/mL to 100,00 0,000 IU/mL(1.18 Log IU/mL to 8.00 Log IU/ mL). The analytical performance characteristics of thisassay have been determined by [employer]. Th e modifications h ave not been cleare d or approved bythe FDA. This assay has been validated pursu ant to the CLIA regulations and is used for clinic al purposes. For m ore information on this test, go to:http://educa Quantified Skinon. [employer] /faq/AHK65z1( is link is being provided for informational/e ducat ional purposes only.) RAC (test code = Performing RAC) Organization Information: Site ID: IG Name: [facility] Address: [address] [place] [address] Director: Dr. Rajinder Grant [facility] C [id number] 22:17:00 Test Item Value Reference Interpretation Comments Range Hepatitis C Ab (test REACTIVE NON-REACTIVE A code = 54384-1) Signal/cutoff (test >11.00 <=1.00 H Based o n this code = 31445-1) result, the sample will be testedf or HCV RNA by a Nucleic Acid Amplification T est (NAAT)to determ ine if the patient has a current activeinfection . RAC (test code = Performing RAC) Organization Information: Site ID: RGA Name: [facility] Address: [address] [place] [address] Director: Rajinder Grant Lab Interpretation Abnormal (test code = 41115-8) [facility] type 1/2 combined Ab, [id number] 22:17:00 Test Item Value Reference Interpretation Comments Range HSV 1 IgM NEGATIVE (test code = 80185-1) HSV 2 IgM NEGATIVE REFERENCE RANG E: NEGATIVE HSV (test IgM is detectab le in serum code = from >90% of pa tracey 67102-6) primary HSV inf ection. However, HSV Ig [...] performancechar acteristics have been deter mined by [facility].It has not been cleared or appr luis by FDA. This assay hasb een validated pursuant to the CLIA regulations and isused for clinical purpos es. RAC (test Performing code = Organization RAC) Information: Site ID: EZ Name: [facility], Address: [address] [place] [address] Director: Crista Camacho MD,PhD,BARI [facility]HIV 1/2 antigen/antibody, fourth generation, with reflexes 2022-02-11 22:17:00 Test Item Value Reference Range Interpretation Comments HIV NON-REACTIVE NON-REACTIVE HIV-1 antigen a nd antigen/ant HIV-1/HIV-2 ant ibodies ibody 4th were notdetecte d. There gen (test is no laborator y evidence code = of HIVinfection . PLEASE 41604-5) NOTE: This info rmation has been disclo [...] ad ditional information ple ase refer tohttp://educat ion.AFINOS.GameTube/ faq/SZK340 (This link is b eing provided for informational/e ducational purposes only.) The performance of this assay has not been clinicallyvalid ated in patients less t lagunas 2 years old. RAC (test Performing code = RAC) Organization Information: Site ID: RGA [facility] Address: [address] [place] [address] Director: Rajinder Grant [facility] 1 and 2 specific Ab [id number] 22:17:00 Test Item Value Reference Interpretation Comments [...] For additional information, pl ease refer to http://fay Garcia tDiagnostics.co m/faq/ PMX350 (This li nk is being provided for informational/e ducati onal purposes o nly.) RAC (test code = Performing RAC) Organization Information: Site ID: IG Name: [facility] Address: [address] [place] [address] Director: Dr. Rajinder Grant Lab Interpretation Abnormal (test code = 81512-3) [facility] [id number] 15:02:28 Test Item Value Reference Range Interpretation Comments Case number (test code = [id number]) Surgical pathology See link below for report (test code = PDF Lab Report 2255) Result status (test code This is Final Report = [id number]) for [address] pathology [id number] 15:02:28 Test Item Value Reference Range Interpretation Comments Case number (test code = [id number]) Surgical pathology See link below for report (test code = PDF Lab Report 2255) Result status (test code This is Final Report = [id number]) for [address] pathology [id number] 15:02:28 Test Item Value Reference Range Interpretation Comments Case number (test code = [id number]) Surgical pathology See link below for report (test code = PDF Lab Report 2255) Result status (test code This is Final Report = [id number]) for [address] pathology [id number] 15:02:28 Test Item Value Reference Range Interpretation Comments Case number (test code = [id number]) Surgical pathology See link below for report (test code = PDF Lab Report 2255) Result status (test code This is Final Report = [id number]) for [address] pathology [id number] 15:02:28 Test Item Value Reference Range Interpretation Comments Case number (test code = [id number]) Surgical pathology See link below for report (test code = PDF Lab Report 2255) Result status (test code This is Final Report = 9343353) for [address] pathology [id number] 15:02:28 Test Item Value Reference Range Interpretation Comments Case number (test code = [id number]) Surgical pathology See link below for report (test code = PDF Lab Report 2255) Result status (test code This is Final Report = [id number]) for [address] pathology [id number] 15:02:28 Test Item Value Reference Range Interpretation Comments Case number (test code = [id number]) Surgical pathology See link below for report (test code = PDF Lab Report 2255) Result status (test code This is Final Report = 7891544) for [address] pathology [id number] 15:02:28 Test Item Value Reference Range Interpretation Comments Case number (test code = [id number]) Surgical pathology See link below for report (test code = PDF Lab Report 2255) Result status (test code This is Final Report = 9994493) for [address] pathology [id number] 15:02:28 Test Item Value Reference Range Interpretation Comments Case number (test code = [id number]) Surgical pathology See link below for report (test code = PDF Lab Report 2255) Result status (test code This is Final Report = [id number]) for [address] pathology [id number] 15:02:28 Test Item Value Reference Range Interpretation Comments Case number (test code = [id number]) Surgical pathology See link below for report (test code = PDF Lab Report 2255) Result status (test code This is Final Report = 8042077) for [address] pathology [id number] 15:02:28 Test Item Value Reference Range Interpretation Comments Case number (test code = [id number]) Surgical pathology See link below for report (test code = PDF Lab Report 2255) Result status (test code This is Final Report = [id number]) for [address] pathology [id number] 15:02:28 Test Item Value Reference Range Interpretation Comments Case number (test code = [id number]) Surgical pathology See link below for report (test code = PDF Lab Report 2255) Result status (test code This is Final Report = [id number]) for [address] pathology [id number] 15:02:28 Test Item Value Reference Range Interpretation Comments Case number (test code = [id number]) Surgical pathology See link below for report (test code = PDF Lab Report 2255) Result status (test code This is Final Report = [id number]) [address]COVID[address] qualitative [id number] 22:09:28 Test Item Value Reference Interpretation Comments Range Interpretation (test Negative results do not code = 9619878) preclude COVID-19 infection and should not be used asthe sole basis for treatment or other patient management decisions. Negativeresults must be combined with clinical observations, patient history, andepidemiological information. COVID-19 qualitative Not-Detected Not-Detected RT-PCR result (test code = 29914-5) COVID-19 qualitative See link below for PDF Case Number: RT-PCR (test code = Lab Report [id number] 7070) [facility] [id number] 22:09:28 Test Item Value Reference Interpretation Comments Range Interpretation (test Negative results do not code = 1905876) preclude COVID-19 infection and should not be used asthe sole basis for treatment or other patient management decisions. Negativeresults must be combined with clinical observations, patient history, andepidemiological information. COVID-19 qualitative Not-Detected Not-Detected RT-PCR result (test code = 00172-1) COVID-19 qualitative See link below for PDF Case Number: RT-PCR (test code = Lab Report [id number] 7070) [facility] [id number] 22:09:28 Test Item Value Reference Interpretation Comments Range Interpretation (test Negative results do not code = 1288616) preclude COVID-19 infection and should not be used asthe sole basis for treatment or other patient management decisions. Negativeresults must be combined with clinical observations, patient history, andepidemiological information. COVID-19 qualitative Not-Detected Not-Detected RT-PCR result (test code = 65911-6) COVID-19 qualitative See link below for PDF Case Number: RT-PCR (test code = Lab Report [id number] 7070) [facility] [id number] 22:09:28 Test Item Value Reference Interpretation Comments Range Interpretation (test Negative results do not code = 1000981) preclude COVID-19 infection and should not be used asthe sole basis for treatment or other patient management decisions. Negativeresults must be combined with clinical observations, patient history, andepidemiological information. COVID-19 qualitative Not-Detected Not-Detected RT-PCR result (test code = 32162-3) COVID-19 qualitative See link below for PDF Case Number: RT-PCR (test code = Lab Report [id number] 7070) [facility] [id number] 22:09:28 Test Item Value Reference Interpretation Comments Range Interpretation (test Negative results do not code = 5422764) preclude COVID-19 infection and should not be used asthe sole basis for treatment or other patient management decisions. Negativeresults must be combined with clinical observations, patient history, andepidemiological information. COVID-19 qualitative Not-Detected Not-Detected RT-PCR result (test code = 20343-2) COVID-19 qualitative See link below for PDF Case Number: RT-PCR (test code = Lab Report [id number] 7070) [facility] [id number] 22:09:28 Test Item Value Reference Interpretation Comments Range Interpretation (test Negative results do not code = 3999690) preclude COVID-19 infection and should not be used asthe sole basis for treatment or other patient management decisions. Negativeresults must be combined with clinical observations, patient history, andepidemiological information. COVID-19 qualitative Not-Detected Not-Detected RT-PCR result (test code = 86812-1) COVID-19 qualitative See link below for PDF Case Number: RT-PCR (test code = Lab Report [id number] 7070) [facility] [id number] 22:09:28 Test Item Value Reference Interpretation Comments Range Interpretation (test Negative results do not code = 2157221) preclude COVID-19 infection and should not be used asthe sole basis for treatment or other patient management decisions. Negativeresults must be combined with clinical observations, patient history, andepidemiological information. COVID-19 qualitative Not-Detected Not-Detected RT-PCR result (test code = 34330-7) COVID-19 qualitative See link below for PDF Case Number: RT-PCR (test code = Lab Report [id number] 7070) [facility] [id number] 22:09:28 Test Item Value Reference Interpretation Comments Range Interpretation (test Negative results do not code = 4307939) preclude COVID-19 infection and should not be used asthe sole basis for treatment or other patient management decisions. Negativeresults must be combined with clinical observations, patient history, andepidemiological information. COVID-19 qualitative Not-Detected Not-Detected RT-PCR result (test code = 70967-2) COVID-19 qualitative See link below for PDF Case Number: RT-PCR PDF (test Lab Report [id number] 1 code = 7070) [place] [address] qualitative [id number] 22:09:28 Test Item Value Reference Interpretation Comments Range Interpretation (test Negative results do not code = 8253495) preclude COVID-19 infection and should not be used asthe sole basis for treatment or other patient management decisions. Negativeresults must be combined with clinical observations, patient history, andepidemiological information. COVID-19 qualitative Not-Detected Not-Detected RT-PCR result (test code = 50870-3) COVID-19 qualitative See link below for PDF Case Number: RT-PCR PDF (test Lab Report [id number] 1 code = 7070) [place] [address] qualitative [id number] 22:09:28 Test Item Value Reference Interpretation Comments Range Interpretation (test Negative results do not code = 0297747) preclude COVID-19 infection and should not be used asthe sole basis for treatment or other patient management decisions. Negativeresults must be combined with clinical observations, patient history, andepidemiological information. COVID-19 qualitative Not-Detected Not-Detected RT-PCR result (test code = 24029-4) COVID-19 qualitative See link below for PDF Case Number: RT-PCR PDF (test Lab Report [id number] 1 code = 7070) [facility]- qualitative [id number] 22:09:28 Test Item Value Reference Interpretation Comments Range Interpretation (test Negative results do not code = 1750481) preclude COVID-19 infection and should not be used asthe sole basis for treatment or other patient management decisions. Negativeresults must be combined with clinical observations, patient history, andepidemiological information. COVID-19 qualitative Not-Detected Not-Detected RT-PCR result (test code = 38634-0) COVID-19 qualitative See link below for PDF Case Number: RT-PCR PDF (test Lab Report [id number] 1 code = 7070) [facility] [id number] 22:09:28 Test Item Value Reference Interpretation Comments Range Interpretation (test Negative results do not code = 9053823) preclude COVID-19 infection and should not be used asthe sole basis for treatment or other patient management decisions. Negativeresults must be combined with clinical observations, patient history, andepidemiological information. COVID-19 qualitative Not-Detected Not-Detected RT-PCR result (test code = 89340-5) COVID-19 qualitative See link below for PDF Case Number: RT-PCR PDF (test Lab Report [id number] 1 code = 7070) [facility] [id number] 22:09:28 Test Item Value Reference Interpretation Comments Range Interpretation (test Negative results do not code = 2052339) preclude COVID-19 infection and should not be used asthe sole basis for treatment or other patient management decisions. Negativeresults must be combined with clinical observations, patient history, andepidemiological information. COVID-19 qualitative Not-Detected Not-Detected RT-PCR result (test code = 64478-2) COVID-19 qualitative See link below for PDF Case Number: RT-PCR PDF (test Lab Report [id number] 1 code = 7070) [facility] RNA [Presence] in Respiratory specimen by LATESHA with probe [id number] 17:09:28 Test Item Value Reference Range Interpretation Comments SARS-CoV-2 (COVID-19) RNA Not detected [Presence] in Respiratory specimen by LATESHA with probe detection (test code = 36088-5) Whether patient is employed in a Unknown healthcare setting (test code = 07431-7) Whether the patient has symptoms Unknown related to condition of interest (test code = 72618-0) Whether the patient was Unknown hospitalized for condition of interest (test code = 03004-4) Whether the patient was admitted Unknown to intensive care unit (ICU) for condition of interest (test code = 97503-2) Whether patient resides in a Unknown congregate care setting (test code = 05245-2) status (test code = Unknown 06482-6) Date and time of symptom onset Unknown (test code = 52689-7) [facility] AND HPV mRNA [id number] 20:30:00 Test Item Value Reference Interpretation Comments Range Clinical information None gi niurka (test code = 54677-1) Date of last NONE GIVEN menstrual period (test code = 8665-2) Prev. pap: (test code NONE G IVEN = 85149-8) Prev. bx: (test code NONE GI NIURKA = 86081-9) Source (test code = None giv en ) Statement of adequacy Satisf actory for (test code = 55549-3) evalua tion.Endocervi cony/transformat ion zone componentpresen t.Age and/or menstrua l status not prov ided Interpretation/result Negati ve for : (test code = intraepitheli al 58889-7) lesion or malignancy. Comment (test code = This Pa p test has ) been evaluated with OptionEase d technology. 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[employer], CT ( CP)CT (test code = 88117-1) screen ing location: [place] [address] [address] [facility], [facility] [address] Comment (test code = EXPLANA TORY NOTE: 4850719) The Pap is a screening test for [...] Detected Not Detected Methodo logy: code = 69092-6) Transcriptio n-Mediat ed Amplificatio n This assay [...] pl ease refer tohttp://educat ion.q uestdiagnostics .com/ faq/IAQ557n9(Th is link if provide d for information/edu catio nal purposes on ly.) RAC (test code = RAC) Performing Organization Information: Site ID: IG Name: [facility] Address: [address] [place] [address] Director: Dr. Rajinder Grant Site ID: RGA Name: [facility] Address: [address] [place] [address] Director: Rajinder Grant [facility]iscoTHINPREP TIS AND HPV mRNA [id number] 20:30:00 Test Item Value Reference Interpretation Comments Range Clinical information None gi niurka (test code = 99219-7) Date of last NONE GIVEN menstrual period (test code = 8665-2) Prev. pap: (test code NONE G IVEN = 48924-0) Prev. bx: (test code NONE GI NIURKA = 22492-4) Source (test code = None giv en 88422-3) Statement of adequacy Satisf actory for (test code = 93910-7) evalua tion.Endocervi cony/transformat ion zone componentpresen t.Age and/or menstrua l status not prov ided Interpretation/result Negati ve for : (test code = intraepitheli al 90993-3) lesion or malignancy. Comment (test code = This Pa p test has ) been evaluated with computerassiste d technology. 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NATO, CT ( CP)CT (test code = 47843-1) screen ing location: [address], [place] [address] Comment (test code = EXPLANA TORY NOTE: 0056433) The Pap is a screening test for [...] Detected Not Detected Methodo logy: code = 93249-9) Transcriptio n-Mediat ed Amplificatio n This assay [...] For additional information, pl ease refer tohttp://educat ion.Avaak/ faq/DJX694p2(Th is link if provide d for information/edu catio nal purposes on ly.) JACEK (test code = RAC) Performing Organization Information: Site ID: IG Name: [facility] Address: [address] [place] [address] Director: Dr. Rajinder Grant Site ID: RGA Name: [facility] Address: [address] [place] [address] Director: Rajinder Grant [facility]INPREP TIS AND HPV mRNA [id number] 20:30:00 Test Item Value Reference Interpretation Comments Range Clinical information None gi niurka (test code = 03678-4) Date of last NONE GIVEN menstrual period (test code = 8665-2) Prev. pap: (test code NONE G IVEN = 71281-9) Prev. bx: (test code NONE GI NIURKA = 43393-3) Source (test code = None giv en ) Statement of adequacy Satisf actory for (test code = 23935-9) evalua tion.Endocervi cony/transformat ion zone componentpresen t.Age and/or menstrua l status not prov ided Interpretation/result Negati ve for : (test code = intraepitheli al 24966-2) lesion or malignancy. Comment (test code = This Pa p test has ) been evaluated with computerassiste d technology. 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NATO, CT ( CP)CT (test code = 73437-5) screen ing location: [facility] [address] [place] [address], [place] [address] Comment (test code = EXPLANA TORY NOTE: 8056685) The Pap is a screening test for [...] Detected Not Detected Methodo logy: code = 85017-0) Transcriptio n-Mediat ed Amplificatio n This assay [...] For additional information, pl ease refer tohttp://educat ion.Avaak/ faq/SQL661v3(Th is link if provide d for information/edu catio nal purposes on ly.) JACEK (test code = RAC) Performing Organization Information: Site ID: IG Name: [facility] Address: [address] [place] [address] Director: Dr. Rajinder Grant Site ID: RGA Name: [facility] Address: [address] [place] [address] Director: Rajinder Grant [facility]INPREP TIS AND HPV mRNA [id number] 20:30:00 Test Item Value Reference Interpretation Comments Range Clinical information None gi niurka (test code = 88777-0) Date of last NONE GIVEN menstrual period (test code = 8665-2) Prev. pap: (test code NONE G IVEN = 25773-5) Prev. bx: (test code NONE GI NIURKA = 55342-0) Source (test code = None giv en 28978-1) Statement of adequacy Satisf actory for (test code = 29905-4) evalua tion.Endocervi cony/transformat ion zone componentpresen t.Age and/or menstrua l status not prov ided Interpretation/result Negati ve for : (test code = intraepitheli al 13009-2) lesion or malignancy. Comment (test code = This Pa p test has ) been evaluated with inWebo Technologiesiste d technology. 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[employer], CT ( CP)CT (test code = 47084-7) screen ing location: [address], [place] [address] 2 Comment (test code = EXPLANA TORY NOTE: 7435267) The Pap is a screening test for [...] Detected Not Detected Methodo logy: code = 27689-4) Transcriptio n-Mediat ed Amplificatio n This assay [...] additional information, pl ease refer tohttp://educat ion.q SearchMan SEO .GameTube/ faq/EHQ724i3(Th is link if provide d for information/edu catio nal purposes on ly.) JACEK (test code = JACEK) Performing Organization Information: Site ID: TIM Name: [facility] Address: [address] [place] [address] Director: Dr. Rajinder Grant Site ID: KATERINA Name: [facility] Address: [address] [place] [address] Director: Rajinder Grant [facility]INPREP TIS AND HPV mRNA [id number] 20:30:00 Test Item Value Reference Interpretation Comments Range Clinical information None gi niurka (test code = 08722-8) Date of last NONE GIVEN menstrual period (test code = 8665-2) Prev. pap: (test code NONE G IVEN = 97203-4) Prev. bx: (test code NONE GI NIURKA = 30893-6) Source (test code = [place] 84861-8) Statement of adequacy Satisf actory for (test code = 05459-7) evalua tion.Endocervi cony/transformat ion zone componentpresen t.Age and/or menstrua l status not prov ided Interpretation/result Negati ve for : (test code = intraepitheli al 12671-0) lesion or malignancy. Comment (test code = This Pa p test has ) been evaluated with [employer] technology. 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[employer] CT ( CP)CT (test code = 94307-7) screen ing location: [place] [address] [address] [facility], [facility] [address] 2 Comment (test code = EXPLANA TORY NOTE: 4971484) The Pap is a screening test for [...] Detected Not Detected Methodo logy: code = 65812-9) Transcriptio n-Mediat ed Amplificatio n This assay [...] additional information, pl ease refer tohttp://educat ion.q Flyzik/ faq/EML947l1(Th is link if provide d for information/edu catio nal purposes on ly.) RAC (test code = RAC) Performing Organization Information: Site ID: IG Name: [facility] Address: [address] [place] [address] Director: Dr. Rajinder Grant Site ID: RGA Name: [facility] Address: [address] [place] [address] Director: Rajinder Grant [facility]THINPREP TIS AND HPV mRNA [id number] 20:30:00 Test Item Value Reference Interpretation Comments Range Clinical information None gi niurka (test code = 88141-3) Date of last NONE GIVEN menstrual period (test code = 8665-2) Prev. pap: (test code NONE G IVEN = 30180-7) Prev. bx: (test code NONE GI NIURKA = 31475-7) Source (test code = None giv en ) Statement of adequacy Satisf actory for (test code = 79532-6) evalua tion.Endocervi cony/transformat ion zone componentpresen t.Age and/or menstrua l status not prov ided Interpretation/result Negati ve for : (test code = intraepitheli al 84462-3) lesion or malignancy. Comment (test code = This Pa p test has ) been evaluated with computerassiste d technology. 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SYL DUTTON ( CP)CT (test code = 32780-0) screen ing location: [address], [place] [address] 2 Comment (test code = EXPLANA TORY NOTE: [id number]) The Pap is a screening test for [...] Detected Not Detected Methodo logy: code = 48421-4) Transcriptio n-Mediat ed Amplificatio n This assay [...] For additional information, pl ease refer tohttp://educat ion.Avaak/ faq/SSO758e3(Th is link if provide d for information/edu catio nal purposes on ly.) JACEK (test code = RAC) Performing Organization Information: Site ID: IG Name: [facility] Address: [address] [place] [address] Director: Dr. Rajinder Grant Site ID: RGA Name: [facility] Address: [address] [place] [address] Director: Rajinder Grant [facility]IN[facility] TIS AND HPV mRNA [id number] 20:30:00 Test Item Value Reference Interpretation Comments Range Clinical information None gi niurka (test code = 01700-3) Date of last NONE GIVEN menstrual period (test code = 8665-2) Prev. pap: (test code NONE G IVEN = 09000-3) Prev. bx: (test code NONE GI NIURKA = 70926-5) Source (test code = None giv en ) Statement of adequacy Satisf actory for (test code = 54956-9) evalua tion.Endocervi cony/transformat ion zone componentpresen t.Age and/or menstrua l status not prov ided Interpretation/result Negati ve for : (test code = intraepitheli al 97773-7) lesion or malignancy. Comment (test code = This Pa p test has ) been evaluated with computerassiste d technology. 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ISAELL, CT ( CP)CT (test code = 10863-2) screen ing location: [facility] [address] [place] [address], [place] [address] Comment (test code = EXPLANA TORY NOTE: 9496717) The Pap is a screening test for [...] Detected Not Detected Methodo logy: code = 57029-0) Transcriptio n-Mediat ed Amplificatio n This assay [...] For additional information, pl ease refer tohttp://educat ion.Avaak/ faq/IIC602t7(Th is link if provide d for information/edu catio nal purposes on ly.) JACEK (test code = RAC) Performing Organization Information: Site ID: TIM Name: [facility] Address: [address] [place] [address] Director: Dr. Rajinder Grant Site ID: RGA Name: [facility] Address: [address] [place] [address] Director: Rajinder Grant [facility]THINPREP TIS AND HPV mRNA [id number] 20:30:00 Test Item Value Reference Interpretation Comments Range Clinical information None gi niurka (test code = 85598-8) Date of last NONE GIVEN menstrual period (test code = 8665-2) Prev. pap: (test code NONE G IVEN = 22801-3) Prev. bx: (test code NONE GI NIURKA = 62773-7) Source (test code = None giv en ) Statement of adequacy Satisf actory for (test code = 71026-4) evalua tion.Endocervi cony/transformat ion zone componentpresen t.Age and/or menstrua l status not prov ided Interpretation/result Negati ve for : (test code = intraepitheli al 80865-8) lesion or malignancy. Comment (test code = This Pa p test has ) been evaluated with inWebo Technologiesiste d technology. 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ISAELL, CT ( CP)CT (test code = 27038-6) screen ing location: [address], [place] [address] 2 Comment (test code = EXPLANA TORY NOTE: 4637594) The Pap is a screening test for [...] Detected Not Detected Methodo logy: code = 77784-5) Transcriptio n-Mediat ed Amplificatio n This assay [...] For additional information, pl ease refer tohttp://educat ion.Avaak/ faq/PCP323s8(Th is link if provide d for information/edu catio nal purposes on ly.) JACEK (test code = RAC) Performing Organization Information: Site ID: IG Name: [facility] Address: [address] [place] [address] Director: Dr. Rajinder Grant Site ID: RGA Name: [facility] Address: [address] [place] [address] Director: Rajinder Grant [facility]iscoTHINPREP TIS AND HPV mRNA [id number] 20:30:00 Test Item Value Reference Interpretation Comments Range Clinical information None gi niurka (test code = 22974-2) Date of last NONE GIVEN menstrual period (test code = 8665-2) Prev. pap: (test code NONE G IVEN = 95369-7) Prev. bx: (test code NONE GI NIURKA = 91073-1) Source (test code = None giv en 17627-9) Statement of adequacy Satisf actory for (test code = 78023-1) evalua tion.Endocervi cony/transformat ion zone componentpresen t.Age and/or menstrua l status not prov ided Interpretation/result Negati ve for : (test code = intraepitheli al 92893-0) lesion or malignancy. Comment (test code = This Pa p test has ) been evaluated with [employer] technology. 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NATO, CT ( CP)CT (test code = 66381-6) screen ing location: [place] [address] [address] [facility], [facility] 7[address] 2 Comment (test code = EXPLANA TORY NOTE: 1392739) The Pap is a screening test for [...] Detected Not Detected Methodo logy: code = 51705-5) Transcriptio n-Mediat ed Amplificatio n This assay [...] For additional information, pl ease refer tohttp://educat ion.Avaak/ faq/JAU749o3(Th is link if provide d for information/edu catio nal purposes on ly.) RAC (test code = RAC) Performing Organization Information: Site ID: IG Name: [facility] Address: [address] [place] [address] Director: Dr. Rajinder Grant Site ID: RGA Name: [facility] Address: [address] [place] [address] Director: Rajinder Grant [facility]INPREP TIS AND HPV mRNA [id number] 20:30:00 Test Item Value Reference Interpretation Comments Range Clinical information None gi niurka (test code = 52728-1) Date of last NONE GIVEN menstrual period (test code = 8665-2) Prev. pap: (test code NONE G IVEN = 63519-9) Prev. bx: (test code NONE GI NIURKA = 74964-4) Source (test code = None giv en ) Statement of adequacy Satisf actory for (test code = 94690-8) evalua tion.Endocervi cony/transformat ion zone componentpresen t.Age and/or menstrua l status not prov ided Interpretation/result Negati ve for : (test code = intraepitheli al 02288-5) lesion or malignancy. Comment (test code = This Pa p test has ) been evaluated with computerassiste d technology. 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NATO, CT ( CP)CT (test code = 47203-2) screen ing location: [address], [place] [address] 2 Comment (test code = EXPLANA TORY NOTE: 2833838) The Pap is a screening test for [...] Detected Not Detected Methodo logy: code = 32113-3) Transcriptio n-Mediat ed Amplificatio n This assay [...] For additional information, pl ease refer tohttp://educat ion.Avaak/ faq/RRM328n3(Th is link if provide d for information/edu catio nal purposes on ly.) JACEK (test code = RAC) Performing Organization Information: Site ID: IG Name: [facility] Address: [address] [place] [address] Director: Dr. Rajinder Grant Site ID: RGA Name: [facility] Address: [address] [place] [address] Director: Rajinder Grant [facility]THINPREP TIS AND HPV mRNA [id number] 20:30:00 Test Item Value Reference Interpretation Comments Range Clinical information None gi niurka (test code = 51841-7) Date of last NONE GIVEN menstrual period (test code = 8665-2) Prev. pap: (test code NONE G IVEN = 64946-6) Prev. bx: (test code NONE GI NIURKA = 79655-2) Source (test code = None giv en 83116-3) Statement of adequacy Satisf actory for (test code = 25556-1) evalua tion.Endocervi cony/transformat ion zone componentpresen t.Age and/or menstrua l status not prov ided Interpretation/result Negati ve for : (test code = intraepitheli al 42223-1) lesion or malignancy. Comment (test code = This Pa p test has ) been evaluated with computerassiste d technology. 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NATO CT ( CP)CT (test code = 21626-3) screen ing location: [facility] [address] [place] [address], [place] [address] 2 Comment (test code = EXPLANA TORY NOTE: 5127338) The Pap is a screening test for [...] Detected Not Detected Methodo logy: code = 74245-1) Transcriptio n-Mediat ed Amplificatio n This assay [...] For additional information, pl ease refer tohttp://educat ion.Avaak/ faq/NHZ974u8(Th is link if provide d for information/edu catio nal purposes on ly.) JACEK (test code = RAC) Performing Organization Information: Site ID: IG Name: [facility] Address: [address] [place] [address] Director: Dr. Rajinder Grant Site ID: RGA Name: [facility] Address: [address] [place] [address] Director: Rajinder Grant [facility]INPREP TIS AND HPV mRNA [id number] 20:30:00 Test Item Value Reference Interpretation Comments Range Clinical information None gi niurka (test code = 79610-6) Date of last NONE GIVEN menstrual period (test code = 8665-2) Prev. pap: (test code NONE G IVEN = 12566-7) Prev. bx: (test code NONE GI NIURKA = 26060-6) Source (test code = None giv en ) Statement of adequacy Satisf actory for (test code = 75739-2) evalua tion.Endocervi cony/transformat ion zone componentpresen t.Age and/or menstrua l status not prov ided Interpretation/result Negati ve for : (test code = intraepitheli al 65481-5) lesion or malignancy. Comment (test code = This Pa p test has ) been evaluated with inWebo Technologiesiste d technology. 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NATO, CT ( CP)CT (test code = 70442-4) screen ing location: [address], [place] [address] 2 Comment (test code = EXPLANA TORElliot NOTE: 9988973) The Pap is a screening test for [...] Detected Not Detected Methodo logy: code = 09603-1) Transcriptio n-Mediat ed Amplificatio n This assay [...] For additional information, pl ease refer tohttp://educat ion.[employer] [facility] .GameTube/ faq/FLO296h4(Th is link if provide d for information/edu catio nal purposes on ly.) RAC (test code = RAC) Performing Organization Information: Site ID: IG Name: [facility] Address: [address] [place] [address] Director: Dr. Rajinder Grant Site ID: RGA Name: [facility] Address: [address] [place] [address] Director: Rajinder Grant [facility]THINPREP TIS AND HPV mRNA [id number] 20:30:00 Test Item Value Reference Interpretation Comments Range Clinical information None gi niurka (test code = 59446-0) Date of last NONE GIVEN menstrual period (test code = 8665-2) Prev. pap: (test code NONE G IVEN = 91298-3) Prev. bx: (test code NONE GI NIURKA = 25563-8) Source (test code = None giv en 31597-9) Statement of adequacy Satisf actory for (test code = 06065-3) evalua tion.Endocervi cony/transformat ion zone componentpresen t.Age and/or menstrua l status not prov ided Interpretation/result Negati ve for : (test code = intraepitheli al 80174-4) lesion or malignancy. Comment (test code = This Pa p test has ) been evaluated with Urban Mapping technology. 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NATO CT ( CP)CT (test code = 65022-5) screen ing location: [place] [address] [address], [facility] 7[address] 2 Comment (test code = EXPLANA TORY NOTE: 7143151) The Pap is a screening test for [...] Detected Not Detected Methodo logy: code = 34392-6) Transcriptio n-Mediat ed Amplificatio n This assay [...] For additional information, pl ease refer tohttp://educat ion.Avaak/ faq/TUP102o5(Th is link if provide d for information/edu catio nal purposes on ly.) RAC (test code = RAC) Performing Organization Information: Site ID: IG Name: [facility] Address: [address] [place] [address] Director: Dr. Rajinder Grant Site ID: RGA Name: [facility] Address: [address] [place] [address] Director: Rajinder Grant [address]2022-09-01 18:14:37 Test Item Value Reference Range Interpretation Comments Ventricular rate (test code = 253) Atrial rate (test code = 255) AL interval (test code = 266) QRSD interval [...] of 07-NOV-2021 12:57,-No significant change was found- [address]2022-09-01 18:14:37 Test Item Value Reference Range Interpretation Comments Ventricular rate (test code = 253) Atrial rate (test code = 255) AL interval (test code = 266) QRSD interval [...] of 07-NOV-2021 12:57,-No significant change was found- [address]2022-09-01 18:14:37 Test Item Value Reference Range Interpretation Comments Ventricular rate (test code = 253) Atrial rate (test code = 255) AL interval (test code = 266) QRSD interval [...] of 07-NOV-2021 12:57,-No significant change was found- [facility] [Presence] in Respiratory specimen by LATESHA with probe [id number] 21:57:49 Test Item Value Reference Range Interpretation Comments SARS-CoV-2 (COVID-19) RNA [Presence] Detected in Respiratory specimen by LATESHA with probe detection (test code = 48075-4) Whether patient is employed in a Unknown healthcare setting (test code = 29729-2) Whether the patient has symptoms Unknown related to condition of interest (test code = 62398-9) Whether the patient was hospitalized Unknown for condition of interest (test code = 40681-0) Whether the patient was admitted to Unknown intensive care unit (ICU) for condition of interest (test code = 64345-8) Whether patient resides in a Unknown congregate care setting (test code = 27970-7) status (test code = Unknown 66107-2) Date and time of symptom onset (test Unknown code = 60331-3) [facility]Hep[facility] function [id number] 18:40:00 Test Item Value Reference Range Interpretation Comments Protein (test code 6.6 g/dL 6.1-8.1 = 2885-2) Albumin, S (test 4.1 g/dL 3.6-5.1 code = 1751-7) Globulin, total See_Comment [Automated (test code = message] The 26813-7) system which generated this result transmitted reference range : 1.9 - 3.7 g/dL (calc). The reference range was not used to interpret this result as normal/abnormal . Albumin/globulin See_Comment [Automated ratio (test code = message] The 769-0) system which generated this result transmitted reference [...] RAC) Organization Information: Site ID: RGA [facility]: [facility] Address: [address] [place] [address] Director: Rajinder Girma LamarRudyJ.W. Ruby Memorial HospitalHepatic function [id number] 18:40:00 Test Item Value Reference Range Interpretation [...] RAC) Organization Information: Site ID: RGA Name: [facility] Address: [address] [place] [address] Director: [facility] HealthHepatic function [id number] 18:40:00 Test Item Value Reference Range Interpretation [...] RAC) Organization Information: Site ID: RGA [facility]: [facility] Address: [address] [place] [address] Director: Rajinder Girma MedinaRudyMedina HospitalHepatic function [id number] 18:40:00 Test Item Value Reference Range Interpretation [...] RAC) Organization Information: Site ID: BEBA Name: [facility] Address: [address] [place] [address] Director: Rajinder LamarJ.W. Ruby Memorial HospitalHepatic function [id number] 18:40:00 Test Item Value Reference Range Interpretation [...] RAC) Organization Information: Site ID: BEBA Name: [facility] Address: [address] [place] [address] Director: Rajinder LamarJ.W. Ruby Memorial HospitalHepatic function [id number] 18:40:00 Test Item Value Reference Range Interpretation [...] RAC) Organization Information: Site ID: RGA Name: [facility] Address: [address] [place] [address] Director: Rajinder LamarJ.W. Ruby Memorial HospitalHepatic function [id number] 18:40:00 Test Item Value Reference Range Interpretation [...] RAC) Organization Information: Site ID: RGA Name: [facility] Address: [address] [place] [address] Director: Rajinder Grant [facility] function [id number] 18:40:00 Test Item Value Reference Range Interpretation [...] RAC) Organization Information: Site ID: RGA Name: [facility] Address: [address] [place] [address] Director: Rajinder Grant [facility] function [id number] 18:40:00 Test Item Value Reference Range Interpretation [...] RAC) Organization Information: Site ID: RGA Name: [facility] Address: [address] [place] [address] Director: [place] Girma [facility]Hepatic function [id number] 18:40:00 Test Item Value Reference Range Interpretation [...] RAC) Organization Information: Site ID: RGA Name: [facility] Address: [address] [place] [address] Director: [facility] HealthHepatic function [id number] 18:40:00 Test Item Value Reference Range Interpretation [...] [Automated indirect (test message] The code = 1971-1) system which generated this result transmitted reference [...] RAC) Organization Information: Site ID: RGA Name: [facility] Address: [address] [place] [address] Director: Rajinder MartínezARS-CoV-2 (COVID-19) RNA [Presence] in Respiratory specimen by LATESHA with probe [id number] 20:46:09 Test Item Value Reference Range Interpretation Comments SARS-CoV-2 (COVID-19) RNA Not detected [Presence] in Respiratory specimen by LATESHA with probe detection (test code = 19359-8) Whether patient is employed in a Unknown healthcare setting (test code = 33903-4) Whether the patient has symptoms Unknown related to condition of interest (test code = 76353-4) Whether the patient was Unknown hospitalized for condition of interest (test code = 99814-2) Whether the patient was admitted Unknown to intensive care unit (ICU) for condition of interest (test code = 35048-8) Whether patient resides in a Unknown congregate care setting (test code = 59024-3) status (test code = Unknown 36521-5) Date and time of symptom onset Unknown (test code = 10494-9) [facility] CenterThyroid stimulating [id number] 05:23:00 Test Item Value Reference Range Interpretation Comments TSH (test code mIU/L Reference Ra nge > = 3016-3) or = 20 Years 0.40-4.50 Range s First trimester 0.26-2.66 Secon d trimester 0.55-2.73 Third trimester 0.43-2.91 RAC (test code Performing = RAC) Organization Information: Site ID: RGA Name: [facility] Address: [address] [place] [address] Director: Rajinder Grant [facility] [id number] 05:23:00 Test Item Value Reference Range Interpretation Comments TSH (test code mIU/L Reference Ra nge > = 3016-3) or = 20 Years 0.40-4.50 Range s First trimester 0.26-2.66 Secon d trimester 0.55-2.73 Third trimester 0.43-2.91 RAC (test code Performing = RAC) Organization Information: Site ID: RGA Name: [facility] Address: [address] [place] [address] Director: Rajinder Grant [facility] [id number] 05:23:00 Test Item Value Reference Range Interpretation Comments TSH (test code mIU/L Reference R paris = 3016-3) > or = 20 Years 0.40-4.50 Range s First trimester 0.26-2.66 Secon d trimester 0.55-2.73 Thir d trimester 0.43-2.91 RAC (test code Performing = RAC) Organization Information: Site ID: RGA Name: [facility] Address: [address] [place] [address] Director: Rajinder Grant [facility] [id number] 05:23:00 Test Item Value Reference Range Interpretation Comments TSH (test code mIU/L Reference Ra nge > = 3016-3) or = 20 Years 0.40-4.50 Range s First trimester 0.26-2.66 Secon d trimester 0.55-2.73 Third trimester 0.43-2.91 RAC (test code Performing = RAC) Organization Information: Site ID: RGA Name: [facility] Address: [address] [place] [address] Director: Rajinder Grant [facility] [id number] 05:23:00 Test Item Value Reference Range Interpretation Comments TSH (test code mIU/L Reference Ra nge > = 3016-3) or = 20 Years 0.40-4.50 Range s First trimester 0.26-2.66 Secon d trimester 0.55-2.73 Third trimester 0.43-2.91 RAC (test code Performing = RAC) Organization Information: Site ID: RGA Name: [facility] Address: [address] [place] [address] Director: Rajinder KiddQueen [facility]2022-06-11 05:23:00 Test Item Value Reference Range Interpretation Comments TSH (test code mIU/L Reference Ra nge = 3016-3) > or = 20 Years 0.40-4.50 Range s First trimester 0.26-2.66 Secon d trimester 0.55-2.73 Third trimester 0.43-2.91 RAC (test code Performing = RAC) Organization Information: Site ID: A Name: [facility] Address: [address] [place] [address] Director: Rajinder KiddQueen [facility]2022-06-11 05:23:00 Test Item Value Reference Range Interpretation Comments TSH (test code 1.97 mIU/L Reference Ra nge = 3016-3) > or = 20 Years 0.40-4.50 Range s First trimester 0.26-2.66 Secon d trimester 0.55-2.73 Third trimester 0.43-2.91 RAC (test code Performing = RAC) Organization Information: Site ID: RGA Name: [facility] Address: [address] [place] [address] Director: Rajinder [facility]iddBell[facility] [id number] 05:23:00 Test Item Value Reference Range Interpretation Comments TSH (test code 1.97 mIU/L Reference Ra nge > = 3016-3) or = 20 Years 0.40-4.50 Range s First trimester 0.26-2.66 Secon d trimester 0.55-2.73 Third trimester 0.43-2.91 RAC (test code Performing = RAC) Organization Information: Site ID: RGA Name: [facility] Address: [address] [place], [place] [address] Director: Rajinder KiddThe University of [facility] Centerroid [facility] [id number] 05:23:00 Test Item Value Reference Range Interpretation Comments TSH (test code 1.97 mIU/L Reference Ra nge > = 3016-3) or = 20 Years 0.40-4.50 Range s First trimester 0.26-2.66 Secon d trimester 0.55-2.73 Third trimester 0.43-2.91 RAC (test code Performing = RAC) Organization Information: Site ID: A Name: [facility] Address: [address] [place] [address] Director: [facility] HealthThyroid stimulating [id number] 05:23:00 Test Item Value Reference Range Interpretation Comments TSH (test code 1.97 mIU/L Reference Ra nge > = 3016-3) or = 20 Years 0.40-4.50 Range s First trimester 0.26-2.66 Secon d trimester 0.55-2.73 Third trimester 0.43-2.91 RAC (test code Performing = RAC) Organization Information: Site ID: [facility] Name: [facility] Address: [address] [place] [address] Director: Summa HealthUA RFLX MICR CULT IF [id number] 18:48:00 Test Item Value Reference Range Interpretation [...] LACT) 0.7 mmol/L 0.7-2.0 N LIVER FUNCTION [id number] 15:14:00 Test Item Value Reference Range Interpretation [...] U/L 38-126 N (test code = ALKP) [id number] 15:14:00 Test Item Value Reference Range Interpretation [...] ~~~~~~~~~~~~ ~~~~~~~~~~~~~~~ ~~~~~~~~~~~~ ~~~~~~~~~~~~~~~ ~ BASIC METABOLIC [id number] 15:14:00 Test Item Value Reference Range Interpretation [...] = HEMINDEX) - CT ABD PELVIS W/O [id number] 14:53:00 [facility] : 1970 Sex: F FAX: Debo Gutierrez [place]: St: REG Name: HERSON JACK[facility] : 1970 Age/S: 51/F [id number] Unit: [id number] Loc: [place] [address] Phys: Debo Gutirerez Acct: [id number] Dis Date: Status: REG ER PHONE #: [phone] Exam Date: 08/08/2021 1435 FAX #: [phone] Reason: flank pain EXAMS: CPT CODE: [id number] CT ABD PELVIS W/O CONT 25148 EXAM: CT abdomen and pelvis without contrast [...] Sig kady Report (CONTINUED) FAX: Debo Gutierrez Douglas: St: REG Name: HERSON JACKSON [facility] : 1970 Age/S: 51/F [address] Unit: [id number] Loc: [place] [address] Phys: Debo Gutierrez Acct: [id number] Dis Date: Status: REG ER PHONE #: [phone] Exam Date: 08/08/2021 1435 FAX #: Reason: flank pain EXAMS: CPT CODE: [id number] CT ABD PELVIS W/O CONT 27271 (Continued) nephrolithiasis . Evaluation of the bladder [...] 2 Signed Report (CONTINUED) FAX: Debo Gutierrez Douglas: St: REG Name: HERSON JACKSON [facility] :1970 Age/S: 51/F [address] Unit: [id number] Loc: [place] [address] Phys: Debo Gutierrez Acct: [id number] Dis Date: Status: REG ER PHONE #: [phone] Exam Date: 08/08/2021 1435 FAX #: [phone] Reason: flank pain EXAMS: CPT CODE: [id number] CT ABD PELVIS W/O CONT 23115 (Continued) CC: Debo Gutierrez Technologist: Debo Ortiz; SCOTT SORIANO; DIANE BENAVIDES Trnscrd Dt/Tm: 08/08/2021 (2617) Aguilar Orig Print D/T: S: 08/08/2021 (4526 PAGE 3 Signed ReportCBC W/AUTO [id number] 14:21:00 Test Item Value Reference Range Interpretation [...] 3/uL 0.0-0.1 N - XR CHEST 1 [id number] 13:50:00 [facility] 1970 Sex: F FAX: Debo Gutierrez Douglas: St: PRE Name: MANUELHERSON [facility] : 1970 Age/S: 51/F [address] Unit #: [id number] Loc: [place] [address] Phys: Debo Gutierrez Acct: [id number] Dis Date: Status: PRE ER PHONE #: [phone] Exam Date: 08/08/2021 1340 FAX #: [phone] Reason: CODE SEPSIS EXAMS: CPT CODE: [id number] XR CHEST 1 V 32270 CHEST 1 VIEW: INDICATION: CODE SEPSIS COMPARISON: [...] Debo Gutierrez Technologist: NAY GILLIS; STUDENT 2ND YEARTrjesus manuel Date/Time/By: 08/08/2021 (1350) : By: [email or web address] PAGE 1 Signed Report FAX: Debo Gutierrez Douglas: St: PRE -- Name: HERSON JACKSON [facility] : 1970 Age/S: 51/F [address] Unit #: [id number] Loc: [place] [address] Phys: Debo Gutierrez Acct: [id number] Dis Date: Status: PRE ER PHONE #: [phone] Exam Date: 08/08/2021 1340 FAX #: [phone] Reason: CODE SEPSIS EXAMS: CPT CODE: [id number] XR CHEST 1 V 53705 (Continued) Orig Print D/T: S: 08/08/2021 (9580) PAGE 2 Signed ReportTHINPREP TIS PAP AND HPV mRNA E6/E7 REFLEX HPV 16,18/45 2021-06-19 18:43:00 Test Item Value Reference Interpretation Comments Range Clinical information None gi niurka (test code = 31159-8) Date of last NONE GIVEN menstrual period (test code = 8665-2) Prev. pap: (test code NONE G IVEN = 24332-5) Prev. bx: (test code NONE GI NIURKA = 88529-6) Source (test code = None giv en 61820-7) Statement of adequacy Satisf actory for (test code = 61987-3) evalua tion.Endocervi cony/transformat ion zone componentpresen t.Age and/or menstrua l status not prov ided Interpretation/result Negati ve for : (test code = intraepitheli al 60177-6) lesion or malignancy. Comment (test code = This Pa p test has ) been evaluated with computerassiste d technology. Review PMT, CT(ASCP)CT checker stocker screening l ocation: (test code = 25207-1) [facility] [address], [facility] [address] 2 Comment (test code = EXPLANA TORY NOTE: 2710277) The Pap is a screening test for [...] Detected Not Detected Methodo logy: code = 34907-4) Transcriptio n-Mediat ed Amplificatio n This assay dete cts E6/E7 viral messenger RNA ( mRNA) from 14high-ris k HPV types (16,18,31,33,35 ,39,4 5,51,52,56,58,5 9,66, 68). The analyt ical performance characteristics of thisassay have been determined by [employer].The modifications h ave not been cleare d or approvedby the FDA. This assay has been validated pursu antto the CLIA regula tions and is used forclinical purposes. For additional information, pl ease refer tohttp://educat ion.[employer] .com/ faq/SWK424h3(Th is link if provide d for information/edu catio nal purposes on ly.) JACEK (test code = RAC) Performing Organization Information: Site ID: IG Name: [facility] Address: [address] [place] [address], [place] [address] Director: Dr. Rajinder Grant Site ID: BEBA Name: [facility] Address: [address] [place] [address] Director: Rajinder Grant [facility] AND HPV mRNA E6/E7 REFLEX HPV 16,18/45 2021-06-19 18:43:00 Test Item Value Reference Interpretation Comments Range Clinical information None gi niurka (test code = 75406-2) Date of last NONE GIVEN menstrual period (test code = 8665-2) Prev. pap: (test code NONE G IVEN = 09095-1) Prev. bx: (test code NONE GI NIURKA = 95504-1) Source (test code = None giv en ) Statement of adequacy Satisf actory for (test code = 56224-4) evalua tion.Endocervi cony/transformat ion zone componentpresen t.Age and/or menstrua l status not prov ided Interpretation/result Negati ve for : (test code = intraepitheli al 24113-2) lesion or malignancy. Comment (test code = This Pa p test has ) been evaluated with Min[employer] Digital Signageassiste d technology. Review PMT, CT(ASCP)CT checker stocker screening l ocation: (test code = 31306-4) [facility] [address], [place] [address] 2 Comment (test code = EXPLANA TORY NOTE: 1516701) The Pap is a screening test for [...] Detected Not Detected Methodo logy: code = 75694-3) Transcriptio n-Mediat ed Amplificatio n This assay dete cts E6/E7 viral messenger RNA ( mRNA) from 14high-ris k HPV types (16,18,31,33,35 ,39,4 5,51,52,56,58,5 9,66, 68). The analyt ical performance characteristics of thisassay have been determined by [employer].The modifications h ave not been cleare d or approvedby the FDA. This assay has been validated pursu antto the CLIA regula tions and is used forclinical purposes. For additional information, pl ease refer tohttp://educat ion.Avaak/ faq/JPP958z2(Th is link if provide d for information/edu catio nal purposes on ly.) RAC (test code = RAC) Performing Organization Information: Site ID: IG Name: [facility] Address: [address] [place] [address] Director: Dr. Rajinder Grant Site ID: RGA Name: [facility] Address: [address] [place] [address] Director: Rajinder Grant [facility]IN[facility] TIS PAP AND HPV mRNA E6/E7 REFLEX HPV 16,18/45 2021-06-19 18:43:00 Test Item Value Reference Interpretation Comments Range Clinical information None gi niurka (test code = 65933-4) Date of last NONE GIVEN menstrual period (test code = 8665-2) Prev. pap: (test code NONE G IVEN = 07190-5) Prev. bx: (test code NONE GI NIURKA = 42243-8) Source (test code = None giv en ) Statement of adequacy Satisf actory for (test code = 16373-1) evalua tion.Endocervi cony/transformat ion zone componentpresen t.Age and/or menstrua l status not prov ided Interpretation/result Negati ve for : (test code = intraepitheli al 95368-7) lesion or malignancy. Comment (test code = This Pa p test has ) been evaluated with computerassiste d technology. Review PMT, CT(ASCP)CT checker stocker screening l ocation: (test code = 88719-9) [facility] [address], [place] [address] 2 Comment (test code = EXPLANA TORY NOTE: 4604840) The Pap is a screening test for [...] Detected Not Detected Methodo logy: code = 88372-1) Transcriptio n-Mediat ed Amplificatio n This assay dete cts E6/E7 viral messenger RNA ( mRNA) from 14high-ris k HPV types (16,18,31,33,35 ,39,4 5,51,52,56,58,5 9,66, 68). The analyt ical performance characteristics of thisassay have been determined by [employer].The modifications h ave not been cleare d or approvedby the FDA. This assay has been validated pursu antto the CLIA regula tions and is used forclinical purposes. For additional information, pl ease refer tohttp://educat ion.Avaak/ faq/VMF921m5( is link if provide d for information/edu catio nal purposes on ly.) JACEK (test code = RAC) Performing Organization Information: Site ID: IG Name: [facility] Address: [address] [place] [address] Director: Dr. Rajinder Grant Site ID: RGA Name: [facility] Address: [address] [place] [address] Director: Rajinder Grant [facility] PAP AND HPV mRNA E6/E7 REFLEX HPV 16,18/45 2021-06-19 18:43:00 Test Item Value Reference Interpretation Comments Range Clinical information None gi niurka (test code = 66765-3) Date of last NONE GIVEN menstrual period (test code = 8665-2) Prev. pap: (test code NONE G IVEN = 65358-0) Prev. bx: (test code NONE GI NIURKA = 91625-4) Source (test code = None giv en ) Statement of adequacy Satisf actory for (test code = 88323-5) evalua tion.Endocervi cony/transformat ion zone componentpresen t.Age and/or menstrua l status not prov ided Interpretation/result Negati ve for : (test code = intraepitheli al 85949-6) lesion or malignancy. Comment (test code = This Pa p test has ) been evaluated with computerassiste d technology. Review PMT, CT(ASCP)CT checker stocker screening l ocation: (test code = 25025-6) [facility] Gol[facility] [address], [facility] [address] Comment (test code = EXPLANA TORY NOTE: 2133426) The Pap is a screening test for [...] Detected Not Detected Methodo logy: code = 87344-3) Transcriptio n-Mediat ed Amplificatio n This assay dete cts E6/E7 viral messenger RNA ( mRNA) from 14high-ris k HPV types (16,18,31,33,35 ,39,4 5,51,52,56,58,5 9,66, 68). The analyt ical performance characteristics of thisassay have been determined by [employer].The modifications h ave not been cleare d or approvedby the FDA. This assay has been validated pursu antto the CLIA regula tions and is used forclinical purposes. For additional information, pl ease refer tohttp://educat ion.[employer] .GameTube/ faq/LBL241h6(Th is link if provide d for information/edu catio nal purposes on ly.) RAC (test code = RAC) Performing Organization Information: Site ID: IG Name: [facility] Address: [address] [place] [address] Director: Dr. Rajinder Grant Site ID: RGA Name: [facility] Address: [address] [place] [address] Director: Rajinder Grant [facility]INPREP TIS PAP AND HPV mRNA E6/E7 REFLEX HPV 16,18/45 2021-06-19 18:43:00 Test Item Value Reference Interpretation Comments Range Clinical information None gi niurka (test code = 47193-7) Date of last NONE GIVEN menstrual period (test code = 8665-2) Prev. pap: (test code NONE G IVEN = 81705-4) Prev. bx: (test code NONE GI NIURKA = 96155-8) Source (test code = [place] 38027-5) Statement of adequacy Satisf actory for (test code = 38260-3) evalua tion.Endocervi cony/transformat ion zone componentpresen t.Age and/or menstrua l status not prov ided Interpretation/result Negati ve for : (test code = intraepitheli al 98631-1) lesion or malignancy. Comment (test code = This Pa p test has ) been evaluated with computerassiste d technology. Review PMT, CT(ASCP)CT checker stocker screening l ocation: (test code = 09637-8) [facility] [address], [facility] [address] Comment (test code = EXPLANA TORY NOTE: 6710633) The Pap is a screening test for [...] Detected Not Detected Methodo logy: code = 29033-2) Transcriptio n-Mediat ed Amplificatio n This assay dete cts E6/E7 viral messenger RNA ( mRNA) from 14high-ris k HPV types (16,18,31,33,35 ,39,4 5,51,52,56,58,5 9,66, 68). The analyt ical performance characteristics of thisassay have been determined by [employer].The modifications h ave not been cleare d or approvedby the FDA. This assay has been validated pursu antto the CLIA regula tions and is used forclinical purposes. For additional information, pl ease refer tohttp://educat ion.[employer] .GameTube/ faq/OTG460n9(Th is link if provide d for information/edu catio nal purposes on ly.) RAC (test code = RAC) Performing Organization Information: Site ID: IG Name: [facility] Address: [address] [place] [address] Director: Dr. Rajinder Grant Site ID: RGA Name: [facility] Address: [address] [place] [address] Director: Rajinder Grant [facility]IN[facility] T[facility] PAP AND HPV mRNA E6/E7 REFLEX HPV 16,18/45 2021-06-19 18:43:00 Test Item Value Reference Interpretation Comments Range Clinical information None gi niurka (test code = 57386-8) Date of last NONE GIVEN menstrual period (test code = 8665-2) Prev. pap: (test code NONE G IVEN = 07038-3) Prev. bx: (test code NONE GI NIURKA = 98268-6) Source (test code = None giv en ) Statement of adequacy Satisf actory for (test code = 98267-3) evalua tion.Endocervi cony/transformat ion zone componentpresen t.Age and/or menstrua l status not prov ided Interpretation/result Negati ve for : (test code = intraepitheli al 82076-1) lesion or malignancy. Comment (test code = This Pa p test has ) been evaluated with computerassiste d technology. Review PMT, CT(ASCP)CT checker stocker screening l ocation: (test code = 41341-6) [facility] [address], [place] [address] 2 Comment (test code = EXPLANA TORY NOTE: 4672756) The Pap is a screening test for [...] Detected Not Detected Methodo logy: code = 14509-0) Transcriptio n-Mediat ed Amplificatio n This assay dete cts E6/E7 viral messenger RNA ( mRNA) from 14high-ris k HPV types (16,18,31,33,35 ,39,4 5,51,52,56,58,5 9,66, 68). The analyt ical performance characteristics of thisassay have been determined by [employer].The modifications h ave not been cleare d or approvedby the FDA. This assay has been validated pursu antto the CLIA regula tions and is used forclinical purposes. For additional information, pl ease refer tohttp://educat ion.[employer] .GameTube/ faq/LVL863u6(Th is link if provide d for information/edu catio nal purposes on ly.) JACEK (test code = RAC) Performing Organization Information: Site ID: IG Name: [facility] Address: [address] [place] [address] Director: Dr. Rajinder Grant Site ID: RGA Name: [facility] Address: [address] [place] [address] Director: Rajinder Grant [facility] T[facility] PAP AND HPV mRNA E6/E7 REFLEX HPV 16,18/45 2021-06-19 18:43:00 Test Item Value Reference Interpretation Comments Range Clinical information None gi niurka (test code = 56532-4) Date of last NONE GIVEN menstrual period (test code = 8665-2) Prev. pap: (test code NONE G IVEN = 53721-6) Prev. bx: (test code NONE GI NIURKA = 06044-3) Source (test code = None giv en ) Statement of adequacy Satisf actory for (test code = 22469-0) evalua tion.Endocervi cony/transformat ion zone componentpresen t.Age and/or menstrua l status not prov ided Interpretation/result Negati ve for : (test code = intraepitheli al 67627-4) lesion or malignancy. Comment (test code = This Pa p test has ) been evaluated with computerassiste d technology. Review PMT, CT(ASCP)CT checker stocker screening l ocation: (test code = 28594-0) [facility] [address], [place] [address] 2 Comment (test code = EXPLANA NONA NOTE: 4835927) The Pap is a screening test for [...] Detected Not Detected Methodo logy: code = 88081-2) Transcriptio n-Mediat ed Amplificatio n This assay dete cts E6/E7 viral messenger RNA ( mRNA) from 14high-ris k HPV types (16,18,31,33,35 ,39,4 5,51,52,56,58,5 9,66, 68). The analyt ical performance characteristics of thisassay have been determined by [employer].The modifications h ave not been cleare d or approvedby the FDA. This assay has been validated pursu antto the CLIA regula tions and is used forclinical purposes. For additional information, pl ease refer tohttp://educat ion.[employer] [facility] .GameTube/ faq/HKC432b9(Th is link if provide d for information/edu catio nal purposes on ly.) RAC (test code = RAC) Performing Organization Information: Site ID: IG Name: [facility] Address: [address] [place] [address] Director: Dr. Rajinder Grant Site ID: RGA Name: [facility] Address: [address] [place] [address] Director: Rajinder Grant [facility] WITH REFLEX TO [id number] 09:37:00 Test Item Value Reference Interpretation Comments Range Color, UA (test code YELLOW YELLOW = 5778-6) Appearance (test CLEAR CLEAR code = 5767-9) Specific gravity, 1.001-1.035 urine (test code = 5811-5) pH, urine (test code 5.0-8.0 = 5803-2) Glucose, urine (test NEGATIVE NEGATIVE code = 18619-8) Bilirubin, UA (test NEGATIVE NEGATIVE code = 5770-3) Ketones, UA (test NEGATIVE NEGATIVE code = 2514-8) Occult blood, urine NEGATIVE NEGATIVE (test code = 5794-3) Protein, UA (test NEGATIVE NEGATIVE code = 22763-3) Nitrite, UA (test NEGATIVE NEGATIVE code = [...] code = NONE SEEN See_Comment [Autom ated 69812-2) message] The sy stem which generated this result transmitted reference range : < OR = 2 /HPF. Th e reference range was not used to interpret this result as normal/abnormal . Squamous epithelial NONE SEEN See_Comment [Automa aydin cells, UA (test code message ] The system = 28979-5) which generated this result transmitted reference range [...] URINE, code = 630-4) ROUTINE Micro Number: [id number] Test Status: Fi nal Specimen Source [...] RAC) Organization Information: Site ID: BEBA Name: [facility] Address: [address] [place] [address] Director: Rajinder Grant Lab Interpretation Abnormal (test code = 07936-9) [facility] WITH REFLEX TO [id number] 09:37:00 Test Item Value Reference Interpretation Comments Range Color, UA (test code YELLOW YELLOW = 5778-6) Appearance (test CLEAR CLEAR code = 5767-9) Specific gravity, 1.001-1.035 urine (test code = 5811-5) pH, urine (test code 5.0-8.0 = 5803-2) Glucose, urine (test NEGATIVE NEGATIVE code = 85459-9) Bilirubin, UA (test NEGATIVE NEGATIVE code = 5770-3) Ketones, UA (test NEGATIVE NEGATIVE code = 2514-8) Occult blood, urine NEGATIVE NEGATIVE (test code = 5794-3) Protein, UA (test NEGATIVE NEGATIVE code = 15693-5) Nitrite, UA (test NEGATIVE NEGATIVE code = [...] code = NONE SEEN See_Comment [Autom ated 68082-8) message] The sy stem which generated this result transmitted reference range : < OR = 2 /HPF. Th e reference range was not used to interpret this result as normal/abnormal . Squamous epithelial NONE SEEN See_Comment [Automa aydin cells, UA (test code message ] The system = 15336-2) which generated this result transmitted reference range [...] URINE, code = 630-4) ROUTINE Micro Number: [id number] Test Status: Fi nal Specimen Source [...] = Performing RAC) Organization Information: Site ID: [facility] Name: [facility] Address: [address] [place] [address] Director: Rajinder Grant Lab Interpretation Abnormal (test code = 79750-1) [facility], WITH REFLEX TO [id number] 09:37:00 Test Item Value Reference Interpretation Comments Range Color, UA (test code YELLOW YELLOW = 5778-6) Appearance (test CLEAR CLEAR code = 5767-9) Specific gravity, 1.001-1.035 urine (test code = 5811-5) pH, urine (test code 5.0-8.0 = 5803-2) Glucose, urine (test NEGATIVE NEGATIVE code = 20896-4) Bilirubin, UA (test NEGATIVE NEGATIVE code = 5770-3) Ketones, UA (test NEGATIVE NEGATIVE code = 2514-8) Occult blood, urine NEGATIVE NEGATIVE (test code = 5794-3) Protein, UA (test NEGATIVE NEGATIVE code = 01063-0) Nitrite, UA (test NEGATIVE NEGATIVE code = [...] code = NONE SEEN See_Comment [Autom ated 75582-6) message] The sy stem which generated this result transmitted reference range : < OR = 2 /HPF. Th e reference range was not used to interpret this result as normal/abnormal . Squamous epithelial NONE SEEN See_Comment [Automa aydin cells, UA (test code message ] The system = 15586-7) which generated this result transmitted reference range [...] URINE, code = 630-4) ROUTINE Micro Number: [id number] Test Status: Fi nal Specimen Source [...] = Performing RAC) Organization Information: Site ID: RG [facility]: [facility] Address: [address] [place] [address] Director: Rajinder Grant Lab Interpretation Abnormal (test code = 86912-5) [facility], WITH REFLEX TO [id number] 09:37:00 Test Item Value Reference Interpretation Comments Range Color, UA (test code YELLOW YELLOW = 5778-6) Appearance (test CLEAR CLEAR code = 5767-9) Specific gravity, 1.001-1.035 urine (test code = 5811-5) pH, urine (test code 5.0-8.0 = 5803-2) Glucose, urine (test NEGATIVE NEGATIVE code = 06658-9) Bilirubin, UA (test NEGATIVE NEGATIVE code = 5770-3) Ketones, UA (test NEGATIVE NEGATIVE code = 2514-8) Occult blood, urine NEGATIVE NEGATIVE (test code = 5794-3) Protein, UA (test NEGATIVE NEGATIVE code = 74138-5) Nitrite, UA (test NEGATIVE NEGATIVE code = [...] code = NONE SEEN See_Comment [Autom ated 80768-5) message] The sy stem which generated this result transmitted reference range : < OR = 2 /HPF. Th e reference range was not used to interpret this result as normal/abnormal . Squamous epithelial NONE SEEN See_Comment [Automa aydin cells, UA (test code message ] The system = 41713-9) which generated this result transmitted reference range [...] URINE, code = 630-4) ROUTINE Micro Number: [id number] 0 Test Status: Fi nal Specimen Source [...] RAC) Organization Information: Site ID: BEBA Name: [facility] Address: [address] [place] [address] Director: Rajinder Grant Lab Interpretation Abnormal (test code = 27570-6) [facility], WITH REFLEX TO [id number] 09:37:00 Test Item Value Reference Interpretation Comments Range Color, UA (test code YELLOW YELLOW = 5778-6) Appearance (test CLEAR CLEAR code = 5767-9) Specific gravity, 1.001-1.035 urine (test code = 5811-5) pH, urine (test code 5.0-8.0 = 5803-2) Glucose, urine (test NEGATIVE NEGATIVE code = 55305-0) Bilirubin, UA (test NEGATIVE NEGATIVE code = 5770-3) Ketones, UA (test NEGATIVE NEGATIVE code = 2514-8) Occult blood, urine NEGATIVE NEGATIVE (test code = 5794-3) Protein, UA (test NEGATIVE NEGATIVE code = 91379-9) Nitrite, UA (test NEGATIVE NEGATIVE code = [...] code = NONE SEEN See_Comment [Autom ated 03924-0) message] The sy stem which generated this result transmitted reference range : < OR = 2 /HPF. Th e reference range was not used to interpret this result as normal/abnormal . Squamous epithelial NONE SEEN See_Comment [Automa aydin cells, UA (test code message ] The system = 20393-3) which generated this result transmitted reference range [...] URINE, code = 630-4) ROUTINE Micro Number: [id number] 0 Test Status: Fi nal Specimen Source [...] RAC) Organization Information: Site ID: RGA [facility]: [facility] Address: [address] [place] [address] Director: Rajinder Grant Lab Interpretation Abnormal (test code = 72903-9) [facility], WITH REFLEX TO [id number] 09:37:00 Test Item Value Reference Interpretation Comments Range Color, UA (test code YELLOW YELLOW = 5778-6) Appearance (test CLEAR CLEAR code = 5767-9) Specific gravity, 1.001-1.035 urine (test code = 5811-5) pH, urine (test code 5.0-8.0 = 5803-2) Glucose, urine (test NEGATIVE NEGATIVE code = 31111-9) Bilirubin, UA (test NEGATIVE NEGATIVE code = 5770-3) Ketones, UA (test NEGATIVE NEGATIVE code = 2514-8) Occult blood, urine NEGATIVE NEGATIVE (test code = 5794-3) Protein, UA (test NEGATIVE NEGATIVE code = 65768-6) Nitrite, UA (test NEGATIVE NEGATIVE code = [...] code = NONE SEEN See_Comment [Autom ated 12511-5) message] The sy stem which generated this result transmitted reference range : < OR = 2 /HPF. Th e reference range was not used to interpret this result as normal/abnormal . Squamous epithelial NONE SEEN See_Comment [Automa aydin cells, UA (test code message ] The system = 03635-2) which generated this result transmitted reference range [...] URINE, code = 630-4) ROUTINE Micro Number: [id number] Test Status: Fi nal Specimen Source [...] RAC) Organization Information: Site ID: [id number] [facility] Address: [address] [place] [id number] Director: Rajinder Grant Lab Interpretation Abnormal (test code = 38341-3) [facility], [facility] [id number] 09:37:00 Test Item Value Reference Interpretation Comments Range Color, UA (test code YELLOW YELLOW = 5778-6) Appearance (test CLEAR CLEAR code = 5767-9) Specific gravity, 1.009 1.001-1.035 urine (test code = 5811-5) pH, urine (test code 7.0 5.0-8.0 = 5803-2) Glucose, urine (test NEGATIVE NEGATIVE code = 22130-4) Bilirubin, UA (test NEGATIVE NEGATIVE code = 5770-3) Ketones, UA (test NEGATIVE NEGATIVE code = 2514-8) Occult blood, urine NEGATIVE NEGATIVE (test code = 5794-3) Protein, UA (test NEGATIVE NEGATIVE code = 70117-9) Nitrite, UA (test NEGATIVE NEGATIVE code = [...] code = NONE SEEN See_Comment [Autom ated 34116-7) message] The sy stem which generated this result transmitted reference range : < OR = 2 /HPF. Th e reference range was not used to interpret this result as normal/abnormal . Squamous epithelial NONE SEEN See_Comment [Automa aydin cells, UA (test code message ] The system = 66727-1) which generated this result transmitted reference range [...] URINE, code = 630-4) ROUTINE Micro Number: [id number] Test Status: Fi nal Specimen Source [...] RAC) Organization Information: Site ID: [id number] Name: [facility] Address: [address] [place] [phone] Director: Rajinder Grant Lab Interpretation Abnormal (test code = 00160-3) [facility] urinalysis [id number] 18:20:00 Test Item Value Reference Range Interpretation Comments Color urine, POC (test Straw code = 2704147) Clarity urine, POC (test Clear code = 1949012) Glucose urine, POC (test Negative Negative code = 8531584) Bilirubin urine, POC Negative Negative (test code = 2474439) Ketones urine, POC (test Negative Negative code = 7811604) Specific gravity urine, 1.005-1.030 POC (test code = 8391662) Blood urine, POC (test Trace Negative A code = 6521389) pH urine, POC (test code See_Comment [A utomated message] = 7245190) The system [employer] generated this result transmitted ref erence range: 5.0, 5.5 , 6.0, 6.5, 7.0, 7.5, 8.0, 8.5. The refere nce range was not u sed to interpret this result as normal/abnor mal. Protein urine, POC (test Negative Negative code = 6689787) Urobilinogen urine, POC <2.0 See_Comment [Au tomated message] (test code = 8166686) The sy stem which generated this result transmitted ref erence range: <=2.0. T he reference range was not used to int erpret this result as normal/abnormal . Nitrite urine, POC (test Negative Negative code = 7558769) Leukocyte esterase Negative Negative urine, POC (test code = 1283476) Lab Interpretation (test Abnormal code = 46806-5) [facility] urinalysis [id number] 18:20:00 Test Item Value Reference Range Interpretation Comments Color urine, POC (test Straw code = 8196666) Clarity urine, POC (test Clear code = 2951752) Glucose urine, POC (test Negative Negative code = 3809539) Bilirubin urine, POC Negative Negative (test code = 6899810) Ketones urine, POC (test Negative Negative code = 2287004) Specific gravity urine, 1.005-1.030 POC (test code = 0969845) Blood urine, POC (test Trace Negative A code = 4748405) pH urine, POC (test code See_Comment [A utomated message] = 3932639) The system [employer] generated this result transmitted ref erence range: 5.0, 5.5 , 6.0, 6.5, 7.0, 7.5, 8.0, 8.5. The refere nce range was not u sed to interpret this result as normal/abnor mal. Protein urine, POC (test Negative Negative code = 3235911) Urobilinogen urine, POC <2.0 See_Comment [Au tomated message] (test code = 9205503) The [employer] stem which generated this result transmitted ref erence range: <=2.0. T he reference range was not used to int erpret this result as normal/abnormal . Nitrite urine, POC (test Negative Negative code = 5792307) Leukocyte esterase Negative Negative urine, POC (test code = 6179974) Lab Interpretation (test Abnormal code = 32292-7) [facility] urinalysis [id number] 18:20:00 Test Item Value Reference Range Interpretation Comments Color urine, POC (test Straw code = 5555654) Clarity urine, POC (test Clear code = 3458977) Glucose urine, POC (test Negative Negative code = 2728563) Bilirubin urine, POC Negative Negative (test code = 5981974) Ketones urine, POC (test Negative Negative code = 8139067) Specific gravity urine, 1.005-1.030 POC (test code = 5267264) Blood urine, POC (test Trace Negative A code = 4834408) pH urine, POC (test code See_Comment [A utomated message] = 3474248) The system [employer] generated this result transmitted ref erence range: 5.0, 5.5 , 6.0, 6.5, 7.0, 7.5, 8.0, 8.5. The refere nce range was not u sed to interpret this result as normal/abnor mal. Protein urine, POC (test Negative Negative code = 0963720) Urobilinogen urine, POC <2.0 See_Comment [Au tomated message] (test code = 1374478) The sy stem which generated this result transmitted ref erence range: <=2.0. T he reference range was not used to int erpret this result as normal/abnormal . Nitrite urine, POC (test Negative Negative code = 2459003) Leukocyte esterase Negative Negative urine, POC (test code = 9802905) Lab Interpretation (test Abnormal code = 62145-1) [facility] urinalysis [id number] 18:20:00 Test Item Value Reference Range Interpretation Comments Color urine, POC (test Straw code = 9897996) Clarity urine, POC (test Clear code = 0911647) Glucose urine, POC (test Negative Negative code = 0881540) Bilirubin urine, POC Negative Negative (test code = 4440306) Ketones urine, POC (test Negative Negative code = 8951836) Specific gravity urine, 1.005-1.030 POC (test code = 6444810) Blood urine, POC (test Trace Negative A code = 5752898) pH urine, POC (test code See_Comment [A utomated message] = 6580076) The system [employer] generated this result transmitted ref erence range: 5.0, 5.5 , 6.0, 6.5, 7.0, 7.5, 8.0, 8.5. The refere nce range was not u sed to interpret this result as normal/abnor mal. Protein urine, POC (test Negative Negative code = 0003552) Urobilinogen urine, POC <2.0 See_Comment [Au tomated message] (test code = 1086494) The sy stem which generated this result transmitted ref erence range: <=2.0. T he reference range was not used to int erpret this result as normal/abnormal . Nitrite urine, POC (test Negative Negative code = 1205587) Leukocyte esterase Negative Negative urine, POC (test code = 8348021) Lab Interpretation (test Abnormal code = 77299-3) [facility] urinalysis [id number] 18:20:00 Test Item Value Reference Range Interpretation Comments Color urine, POC (test Straw code = 1646555) Clarity urine, POC (test Clear code = 7004812) Glucose urine, POC (test Negative Negative code = 9779668) Bilirubin urine, POC Negative Negative (test code = 2210994) Ketones urine, POC (test Negative Negative code = 7422607) Specific gravity urine, 1.005-1.030 POC (test code = 5665892) Blood urine, POC (test Trace Negative A code = 7792265) pH urine, POC (test code See_Comment [A utomated message] = 7510192) The system [employer] generated this result transmitted ref erence range: 5.0, 5.5 , 6.0, 6.5, 7.0, 7.5, 8.0, 8.5. The refere nce range was not u sed to interpret this result as normal/abnor mal. Protein urine, POC (test Negative Negative code = 7991564) Urobilinogen urine, POC <2.0 See_Comment [Au tomated message] (test code = 3509030) The sy stem which generated this result transmitted ref erence range: <=2.0. T he reference range was not used to int erpret this result as normal/abnormal . Nitrite urine, POC (test Negative Negative code = 1568190) Leukocyte esterase Negative Negative urine, POC (test code = 1035561) Lab Interpretation (test Abnormal code = 44704-2) [facility] urinalysis [id number] 18:20:00 Test Item Value Reference Range Interpretation Comments Color urine, POC (test Straw code = 1793955) Clarity urine, POC (test Clear code = 3312315) Glucose urine, POC (test Negative Negative code = 5029929) Bilirubin urine, POC Negative Negative (test code = 7747647) Ketones urine, POC (test Negative Negative code = 3980418) Specific gravity urine, 1.005-1.030 POC (test code = 3427793) Blood urine, POC (test Trace Negative A code = 2621794) pH urine, POC (test code See_Comment [A utomated message] = 9494297) The system [employer] generated this result transmitted ref erence range: 5.0, 5.5 , 6.0, 6.5, 7.0, 7.5, 8.0, 8.5. The refere nce range was not u sed to interpret this result as normal/abnor mal. Protein urine, POC (test Negative Negative code = 8734526) Urobilinogen urine, POC <2.0 See_Comment [Au tomated message] (test code = 1494121) The sy stem which generated this result transmitted ref erence range: <=2.0. T he reference range was not used to int erpret this result as normal/abnormal . Nitrite urine, POC (test Negative Negative code = 4991003) Leukocyte esterase Negative Negative urine, POC (test code = 9487549) Lab Interpretation (test Abnormal code = 44549-9) [facility] urinalysis [id number] 18:20:00 Test Item Value Reference Range Interpretation Comments Color urine, POC (test Straw code = 8689822) Clarity urine, POC (test Clear code = 1605808) Glucose urine, POC (test Negative Negative code = 6486424) Bilirubin urine, POC Negative Negative (test code = 2098184) Ketones urine, POC (test Negative Negative code = 5647269) Specific gravity urine, 1.015 1.005-1.030 POC (test code = 8500931) Blood urine, POC (test Trace Negative A code = 0709242) pH urine, POC (test code 8.0 See_Comment [A utomated message] = 1013630) The system [employer] generated this result transmitted ref erence range: 5.0, 5.5 , 6.0, 6.5, 7.0, 7.5, 8.0, 8.5. The refere nce range was not u sed to interpret this result as normal/abnor mal. Protein urine, POC (test Negative Negative code = 0256536) Urobilinogen urine, POC <2.0 <=2.0 (test code = 4188207) Nitrite urine, POC (test Negative Negative code = 9227616) Leukocyte esterase Negative Negative urine, POC (test code = 8895356) Lab Interpretation (test Abnormal code = 34046-3) [facility]-CoV-2 (COVID-19) RNA [Presence] in Respiratory specimen by LATESHA with probe [id number] 09:55:01 Test Item Value Reference Range Interpretation Comments SARS-CoV-2 (COVID-19) RNA Not detected Not-Detected [Presence] in Respiratory specimen by LATESHA with probe detection (test code = 13263-6) Whether patient is employed in a healthcare setting (test code = 64828-1) Whether the patient has symptoms related to condition of interest (test code = 10902-7) Patient was hospitalized because of this condition (test code = 50799-6) Whether the patient was admitted to intensive care unit (ICU) for condition of interest (test code = 10698-6) Whether patient resides in a congregate care setting (test code = 32764-6) [facility] (COVID-19) RNA [Presence] in Respiratory specimen by LATESHA with probe [id number] 03:07:44 Test Item Value Reference Range Interpretation Comments SARS-CoV-2 (COVID-19) RNA Not detected Not-Detected [Presence] in Respiratory specimen by LATESHA with probe detection (test code = 07893-7) Whether patient is employed in a healthcare setting (test code = 79823-8) Whether the patient has symptoms related to condition of interest (test code = 93073-8) Patient was hospitalized because of this condition (test code = 46537-9) Whether the patient was admitted to intensive care unit (ICU) for condition of interest (test code = 41400-1) Whether patient resides in a congregate care setting (test code = 63831-3) [facility]ULFQYTY-CoL-8 (COVID-19) RNA [Presence] in Respiratory specimen by LATESHA with probe [id number] 02:34:50 Test Item Value Reference Range Interpretation Comments SARS-CoV-2 (COVID-19) RNA Not detected Not-Detected [Presence] in Respiratory specimen by LATESHA with probe detection (test code = 01145-7) Whether patient is employed in a healthcare setting (test code = 44581-4) Whether the patient has symptoms related to condition of interest (test code = 78376-1) Patient was hospitalized because of this condition (test code = 59153-2) Whether the patient was admitted to intensive care unit (ICU) for condition of interest (test code = 97421-0) Whether patient resides in a congregate care setting (test code = 60048-8) [facility] RNA [Presence] in Respiratory specimen by LATESHA with probe [id number] 22:46:50 Test Item Value Reference Range Interpretation Comments SARS-CoV-2 (COVID-19) RNA Not detected Not-Detected [Presence] in Respiratory specimen by LATESHA with probe detection (test code = 87003-6) [facility]-CoV-2 (COVID-19) RNA [Presence] in Respiratory specimen by LATESHA with probe [id number] 10:19:38 Test Item Value Reference Range Interpretation Comments SARS-CoV-2 (COVID-19) RNA Not detected Not-Detected [Presence] in Respiratory specimen by LATESHA with probe detection (test code = 39824-0) [facility]-CoV-2 (COVID-19) RNA [Presence] in Respiratory specimen by LATESHA with probe [id number] 00:17:03 Test Item Value Reference Range Interpretation Comments SARS-CoV-2 (COVID-19) RNA Not detected Not-Detected [Presence] in Respiratory specimen by LATESHA with probe detection (test code = 39268-4) [facility]-CoV-2 (COVID-19) RNA [Presence] in Respiratory specimen by LATESHA with probe [id number] 00:59:15 Test Item Value Reference Range Interpretation Comments SARS-CoV-2 (COVID-19) RNA Not detected Not-Detected [Presence] in Respiratory specimen by LATESHA with probe detection (test code = 16333-2) [facility] [id number] 08:12:00 Test Item Value Reference [...] PELVIS WITHOUT CONTRAST, RENAL STONE PROTOCOL:Location code: [id number] HISTORY: Flank painCOMPARISON: CT abdomen and pelvis [...] Range Interpretation Comments COLOR (test code = O'Brien YELLOW A COLU) CLARITY (test code = [...] 11:03:05CT abdomen and pelvis with contrastLocation Code: [id number] HISTORY: Lower abdominal painCOMPARISON: NoneTechnique: Helical CT [...]
[2023-02-07] MEDS ORDERED: KETOROLAC 30 MG/ML INJ ONE (16:00)
[2023-02-07] MEDS ORDERED: METOCLOPRAMIDE 10 MG/2mL INJ ONE (16:00)
[2023-02-07] MEDS ORDERED: dexAMETHasone 10 MG/ML VIAL ONE (16:00)
[2023-02-07] MEDS ORDERED: DIPHENHYDRAMINE 50 MG/ML VIAL ONE (16:00)
[2023-02-07] MEDS ORDERED: NA CHLORIDE 0.9% 1,000 ML ONE (16:01)
--- NOTE | 2023-02-07 16:30 | EDPHYS ---
Physician Documentation [facility] Name: Fany Meza Age: 52 yrs Sex: Female : 1970 Arrival Date: 02/07/2023 Time: 15:15 Bed 7 Private MD: ED Physician Chencho Poe HPI: 02/07 17:05 This 52 yrs old Female presents to ER via Ambulatory with complaints of Headache. sb4 17:05 patient reports headache for 4 days now. denies any history of headache. states she sb4 went to [place] 3 days ago, had negative head CT and was only given IV tylenol which she states did not relieve the headache. she states the headache has persisted since and she cannot get it to go away despite rotating tylenol and ibuprofen. she does report sensitivity to noise and light but denies any nausea, vomiting. Historical: - Allergies: 15:23 No Known Allergies; mb9 - Home Meds: 15:23 amlodipine 5 mg tab 1 tab once daily [Active]; mb9 - PMHx: 15:23 cervical cancer; Hep C; Hep C; Hep C; Hypertensive disorder; mb9 - PSHx: 15:23 section; neck; mb9 - Immunization history:: Adult Immunizations up to date. - Social history:: Smoking status: Patient reports the use of cigarette tobacco products, smokes one-half pack cigarettes per day. ROS: 17:05 Constitutional: Negative for fever, chills, and weight loss, sb4 17:05 Neuro: Positive for headache, 17:05 All other systems are negative, Exam: 17:05 Constitutional: This is a well developed, well nourished patient who is awake, alert, sb4 and in no acute distress. Head/Face: Normocephalic, atraumatic. Eyes: Extra-ocular motions intact. Periorbital areas with no swelling, redness, or edema. ENT: Mucous membranes moist. Cardiovascular: Regular rate and rhythm with a normal S1 and S2. Respiratory: Lungs have equal breath sounds bilaterally, clear to auscultation and percussion. No rales, rhonchi or wheezes noted. No increased work of breathing, no retractions or nasal flaring. Abdomen/GI: Soft, non-tender, no distension. Skin: Warm, dry with normal turgor. Normal color with no rashes, no lesions, and no evidence of cellulitis. MS/ Extremity: Pulses equal, no cyanosis. Neurovascular intact. Full, normal range of motion. Neuro: Awake and alert, GCS 15, oriented to person, place, time, and situation. Motor strength 5/5 in all extremities. Sensory grossly intact. Vital Signs: 15:21 BP 132 / 85; Pulse 74; Resp 18; Temp 97.7; Pulse Ox 100% ; Weight 79.38 kg; Height 5 mb9 ft. 4 in. ; Pain 10/10; 15:25 BP 110 / 74; Pulse 72; Resp 17; Pulse Ox 99% on R/A; rs5 16:35 BP 118 / 77; Pulse 69; Resp 16 S; Pulse Ox 97% on R/A; aa5 15:21 Body Mass Index 30.04 (79.38 kg, 162.56 cm) mb9 15:21 Pain Scale: Adult mb9 Hemal Coma Score: 17:05 Eye Response: spontaneous(4). Motor Response: obeys commands(6). Verbal Response: sb4 oriented(5). Total: 15. MDM: 15:19 Patient medically screened. sb4 17:05 Differential diagnosis: hypertensive headache, migraine, tension headache, vasomotor sb4 headache. Data reviewed: vital signs, nurses notes, and as a result, I will discharge patient. Test considered but Not performed: CT: had negative head CT 3 days ago, headache resolved after migraine cocktail. Care significantly affected by the following chronic conditions: Hypertension. Counseling: I had a detailed discussion with the patient and/or guardian regarding the historical points, exam findings, and any diagnostic results supporting the discharge/admit diagnosis, to return to the emergency department if symptoms worsen or persist or if there are any questions or concerns that arise at home. 02/07 15:37 Order name: IV Start; Complete Time: 15:58 sb4 Administered Medications: 15:50 Drug: NS 0.9% IV 1000 ml IV at 1 bolus Per protocol; 1000 mL bolus Route: IV; Rate: 1 rs5 bolus; Site: right antecubital; 16:06 Follow up: Response: No adverse reaction rs5 16:35 Follow up: IV Status: Completed infusion; IV Intake: 1000ml aa5 15:50 Drug: Ketorolac IVP 15 mg IVP once Route: IVP; Site: right antecubital; rs5 16:06 Follow up: Response: No adverse reaction; Pain is decreased rs5 15:50 Drug: metoCLOPramide IVP 10 mg IVP once; over 1 to 2 minutes Route: IVP; Site: right rs5 antecubital; 16:06 Follow up: Response: No adverse reaction; Nausea is decreased rs5 15:50 Drug: diphenhydrAMINE IVP 25 mg IVP once Route: IVP; Site: right antecubital; rs5 16:06 Follow up: Response: No adverse reaction rs5 15:50 Drug: Decadron - Dexamethasone IVP 10 mg IVP once Route: IVP; Site: right antecubital; rs5 16:06 Follow up: Response: No adverse reaction rs5 Disposition Summary: 02/07/23 16:28 Discharge Ordered Notes: Location: Home sb4 Problem: new sb4 Symptoms: are resolved sb4 Condition: Stable sb4 Diagnosis - Headache sb4 Followup: sb4 - With: Emergency Department - When: As needed - Reason: Trouble breathing, Worsening of condition Discharge Instructions: - Discharge Summary Sheet sb4 - General Headache Without Cause sb4 Forms: - Medication Reconciliation Form sb4 - Thank You Letter sb4 - Antibiotic Education sb4 - Prescription Opioid Use sb4 - Patient Portal Instructions sb4 - Leadership Thank You Letter sb4 Prescriptions: - Fioricet 50-300-40 mg Oral capsule - take 2 capsule ORAL route every 4 hours as needed for pain; do not exceed 6 sb4 caps per day; 16 capsule; Refills: 0, Product Selection Permitted Addendum: 02/10/2023 10:20 I was immediately available for consultation during this patient's visit. I did not e c2 personally see the patient or guide the patient's care.. Signatures: Farhana Schultz PA-C PA-C sb4 Christina Ashton RN RN mb9 Hakeem Santana RN RN rs5 Chencho Poe MD MD ec2 Kiara Holland RN aa5
--- NOTE | 2023-02-07 16:30 | ER ---
Nurse's Notes [facility] Name: Fany Meza Age: 52 yrs Sex: Female : 1970 Arrival Date: 02/07/2023 Time: 15:15 Bed 7 Private MD: Diagnosis: Headache Presentation: 02/07 15:21 Chief complaint: Patient states: "For the past 4 days I've had this headache. I went to [address] they did a scan, and everything was normal. My face feels flushed and the light bothers me. I took Tylenol and Ibuprofen but nothing is helping.". Coronavirus screen: Vaccine status: Patient reports receiving the 2nd dose of the covid vaccine. Ebola Screen: No symptoms or risks identified at this time. Initial Sepsis Screen: Does the patient meet any 2 criteria? No. Patient's initial sepsis screen is negative. Does the patient have a suspected source of infection? No. Patient's initial sepsis screen is negative. Risk Assessment: Do you want to hurt yourself or someone else? Patient reports no desire to harm self or others. Onset of symptoms was February 07, 2023. 15:21 Method Of Arrival: Ambulatory [facility] 15:21 Acuity: SHARAN 3 9 Triage Assessment: 15:24 Headache History: The patient has had previous headaches. General: Appears mb9 uncomfortable, Behavior is cooperative, appropriate for age. Pain: Complains of pain in head Pain does not radiate. Pain currently is 10 out of 10 on a pain scale. Quality of pain is described as throbbing, Pain began 2-3 days ago. Is continuous. EENT: No signs and/or symptoms were reported regarding the EENT system. Neuro: Meade Agitation-Sedation Scale (RASS): 0 - Alert and Calm Level of Consciousness is awake, alert, obeys commands, Oriented to person, place, time, situation, Appropriate for age Reports headache. Cardiovascular: Patient's skin is warm and dry. Respiratory: Airway is patent Respiratory effort is even, unlabored, Respiratory pattern is regular, symmetrical. GI: Patient currently denies nausea, vomiting. : No signs and/or symptoms were reported regarding the genitourinary system. Derm: Skin is pink, warm \\T\\ dry. Musculoskeletal: Range of motion: intact in all extremities. 16:00 Pain: Denies pain. Also complains of no other associated symptoms. rs5 Historical: - Allergies: 15:23 No Known Allergies; mb9 - Home Meds: 15:23 amlodipine 5 mg tab 1 tab once daily [Active]; mb9 - PMHx: 15:23 cervical cancer; Hep C; Hep C; Hep C; Hypertensive disorder; mb9 - PSHx: 15:23 section; neck; mb9 - Immunization history:: Adult Immunizations up to date. - Social history:: Smoking status: Patient reports the use of cigarette tobacco products, smokes one-half pack cigarettes per day. Screenin:20 [facility] ED Fall Risk Assessment (Adult) History of falling in the last 3 months, rs5 including since admission No falls in past 3 months (0 pts) Confusion or Disorientation No (0 pts) Intoxicated or Sedated No (0 pts) Impaired Gait No (0 pts) Mobility Assist Device Used No (0 pt) Altered Elimination No (0 pt) Score/Fall Risk Level 0 - 2 = Low Risk Oriented to surroundings, Maintained a safe environment. Abuse screen: Denies threats or abuse. Nutritional screening: No deficits noted. Tuberculosis screening: No symptoms or risk factors identified. Assessment: 15:20 General: Appears in no apparent distress. uncomfortable, Behavior is calm, cooperative. rs5 15:20 Pain: Complains of pain in head Pain does not radiate. Pain currently is 8 out of 10 on rs5 a pain scale. Quality of pain is described as aching, Pain began 2-3 days ago. Is continuous. Neuro: Level of Consciousness is awake, alert, obeys commands, Oriented to person, place, time, situation. Cardiovascular: Heart tones S1 S2 present Rhythm is regular. Respiratory: Airway is patent Respiratory effort is even, unlabored, Respiratory pattern is regular, symmetrical, Breath sounds are clear bilaterally. GI: Abdomen is round non-distended, Bowel sounds present X 4 quads. Abd is soft and non tender X 4 quads. : No signs and/or symptoms were reported regarding the genitourinary system. EENT: No signs and/or symptoms were reported regarding the EENT system. Derm: Skin is intact, Skin is pink, warm \\T\\ dry. Musculoskeletal: Range of motion: intact in all extremities. 16:06 Pain: Complains of pain in head Pain does not radiate. Pain currently is 3 out of 10 on rs5 a pain scale. Quality of pain is described as aching, Is continuous. 16:40 Reassessment: Patient is alert, oriented x 3, equal unlabored respirations, skin aa5 warm/dry/pink. Patient states feeling better. Vital Signs: 15:21 BP 132 / 85; Pulse 74; Resp 18; Temp 97.7; Pulse Ox 100% ; Weight 79.38 kg; Height 5 mb9 ft. 4 in. ; Pain 10/10; 15:25 BP 110 / 74; Pulse 72; Resp 17; Pulse Ox 99% on R/A; rs5 16:35 BP 118 / 77; Pulse 69; Resp 16 S; Pulse Ox 97% on R/A; aa5 15:21 Body Mass Index 30.04 (79.38 kg, 162.56 cm) mb9 15:21 Pain Scale: Adult mb9 Hemal Coma Score: 17:05 Eye Response: spontaneous(4). Motor Response: obeys commands(6). Verbal Response: sb4 oriented(5). Total: 15. ED Course: 15:18 Patient arrived in ED. mg5 15:18 Farhana Schultz PA-C is PHCP. sb4 15:18 Chencho Poe MD is Attending Physician. sb4 15:20 Patient has correct armband on for positive identification. Bed in low position. Call rs5 light in reach. Side rails up X2. 15:23 Triage completed. mb9 15:24 Arm band placed on. mb9 15:33 Hakeem Santana, RN is Primary Nurse. rs5 16:40 No provider procedures requiring assistance completed. IV discontinued, intact, aa5 bleeding controlled, No redness/swelling at site. Pressure dressing applied. Administered Medications: 15:50 Drug: NS 0.9% IV 1000 ml IV at 1 bolus Per protocol; 1000 mL bolus Route: IV; Rate: 1 rs5 bolus; Site: right antecubital; 16:06 Follow up: Response: No adverse reaction rs5 16:35 Follow up: IV Status: Completed infusion; IV Intake: 1000ml aa5 15:50 Drug: Ketorolac IVP 15 mg IVP once Route: IVP; Site: right antecubital; rs5 16:06 Follow up: Response: No adverse reaction; Pain is decreased rs5 15:50 Drug: metoCLOPramide IVP 10 mg IVP once; over 1 to 2 minutes Route: IVP; Site: right rs5 antecubital; 16:06 Follow up: Response: No adverse reaction; Nausea is decreased rs5 15:50 Drug: diphenhydrAMINE IVP 25 mg IVP once Route: IVP; Site: right antecubital; rs5 16:06 Follow up: Response: No adverse reaction rs5 15:50 Drug: Decadron - Dexamethasone IVP 10 mg IVP once Route: IVP; Site: right antecubital; rs5 16:06 Follow up: Response: No adverse reaction rs5 Medication: 16:40 VIS not applicable for this client. aa5 Intake: 16:35 IV: 1000ml; Total: 1000ml. aa5 Outcome: 16:28 Discharge ordered by . sb4 16:40 Discharged to home ambulatory, aa5 16:40 Condition: improved 16:40 Discharge instructions given to patient, Instructed on discharge instructions, follow up and referral plans. medication usage, Demonstrated understanding of instructions, follow-up care, medications, Prescriptions given X 1, 16:41 Patient left the ED. rs5 Signatures: Kiara Holland RN RN aa5 Farhana Schultz PA-C PA-C sb4 Christina Ashton RN RN mb9 Hakeem Santana RN RN rs5 Alee Santoro mg5 Corrections: (The following items were deleted from the chart) 16:17 16:11 Pain: Complains of pain in head Pain does not radiate. Pain currently is 3 out of rs5 10 on a pain scale. Quality of pain is described as aching, Is continuous, rs5 16:51 15:10 BP 110 / 74; Pulse 72bpm; Resp 17bpm; Pulse Ox 99% RA; rs5 rs5
[2023-02-07 16:46] VITALS: BP 132/85; TEMP 97.7; O2SAT 100
== END 2023-02-07 16:41 | disposition home or self-care (01) ==
LOC: ER 15:15
DX: R51.9 Headache, unspecified (principal); I10 Essential (primary) hypertension; F17.210 Nicotine dependence, cigarettes, uncomplicated
CPT/HCPCS: 96361; 96374; 96375; 99284; J1100; J1200; J2765; J7030

== ENCOUNTER 2023-02-18 15:55 | Emergency (ER) | payer SELFPAY ==
--- OUTSIDE RECORDS SUMMARY | 2023-02-18 16:14 | XMS REPORT | Continuity of Care Document ---
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 pain or severe pain for up to 2 days .acute pain. Max Daily Amount: 4 tablets HYDROcodone 2-0 2021- No [id number] 1{tbl} Q6H Take 1 [facility] -acetaminop 6-23 06-[address] [facility] ([facility] [employer]) 00:00: 04:59 [facility] 5-325 mg 00 :00 every 6 l per tablet (six) hours as needed for moderate pain or severe pain for up to 2 days .acute pain. Max Daily Amount: 4 tablets HYDROcodone 2021-0 2021- No [id number] 1{tbl} Q6H Take 1 [facility] -acetaminop 6-23 06-[address] [facility] ([facility] [employer]) 00:00: 04:59 [facility] 5-325 mg 00 :00 every 6 l per tablet (six) hours as needed for moderate pain or severe pain for up to 2 days .acute pain. Max Daily Amount: 4 tablets HYDROcodone 2022-0 2021- No [id number] 1{tbl} Q6H Take 1 [facility] -acetaminop 6-23 06-[address] [facility] ([facility] [employer]) 00:00: 04:59 [facility] 5-325 mg 00 :00 every 6 l per tablet (six) hours as needed for moderate pain or severe pain for up to 2 days .acute pain. Max Daily Amount: 4 tablets HYDROcodone 2022-0 2021- No [id number] 1{tbl} Q6H Take 1 [facility] -acetaminop 6-23 06-[address] [facility] ([facility] [employer]) 00:00: 04:59 [facility] 5-325 mg 00 :00 every 6 l per tablet (six) hours as needed for moderate pain or severe pain for up to 2 days .acute pain. Max Daily Amount: 4 tablets HYDROcodone 2-0 2021- No [id number] 1{tbl} Q6H Take 1 [facility] -acetaminop 6-23 06-[address] [facility] ([facility] [employer]) 00:00: 04:59 [facility] 5-325 mg 00 :00 every 6 l per tablet (six) hours as needed for moderate pain or severe pain for up to 2 days .acute pain. Max Daily Amount: 4 tablets HYDROcodone 2022-0 2021- No [id number] 1{tbl} Q6H Take 1 [facility] -acetaminop 6-23 06-[address] [facility] ([facility] [employer]) 00:00: 04:59 [facility] 5-325 mg 00 :00 every 6 l per tablet (six) hours as needed for moderate pain or severe pain for up to 2 days .acute pain. Max Daily Amount: 4 tablets HYDROcodone 2022-0 2021- No [id number] 1{tbl} Q6H Take 1 [facility] -acetaminop 6-23 06-[address] [facility] ([facility] [employer]) 00:00: 04:59 [facility] 5-325 mg 00 :00 every 6 l per tablet (six) hours as needed for moderate pain or severe pain for up to 2 days .acute pain. Max Daily Amount: 4 tablets HYDROcodone 2021-0 2021- No 1{tbl} Q6H Take 1 [facility] -acetaminop 6-23 06-[address] [facility] ([facility] [employer]) 00:00: 04:59 [facility] 5-325 mg 00 :00 every 6 l per tablet (six) hours as needed for moderate pain or severe pain for up to 2 days .acute pain. Max Daily Amount: 4 tablets HYDROcodone 2021-0 2021- No [id number] 1{tbl} Q6H Take 1 [facility] -acetaminop 6-23 06-[address] [facility] ([facility] [employer]) 00:00: 04:59 [facility] 5-325 mg 00 :00 every 6 l per tablet (six) hours as needed for moderate pain or severe pain for up to 2 days .acute pain. Max Daily Amount: 4 tablets HYDROcodone 2021-0 2021- No [id number] 1{tbl} Q6H Take 1 [facility] -acetaminop 6-21 06-[address] [facility] ([facility] [employer]) 00:00: 00:00 [facility] 5-325 mg 00 :00 every 6 l per tablet (six) hours as needed for moderate pain or severe pain for up to 2 days .acute pain. Max Daily Amount: 4 tablets HYDROcodone 2021-0 2021- 1{tbl} Q6H Take 1 [facility] -acetaminop 6-21 06-[address] [facility] ([facility] [employer]) 00:00: 00:00 [facility] 5-325 mg 00 :00 every 6 l per tablet (six) hours as needed for moderate pain or severe pain for up to 2 days .acute pain. Max Daily Amount: 4 tablets HYDROcodone 2021-0 2021- No [id number] 1{tbl} Q6H Take 1 [facility] -acetaminop 6-21 06-[address] [facility] ([facility] [employer]) 00:00: 00:00 [facility] 5-325 mg 00 :00 every 6 l per tablet (six) hours as needed for moderate pain or severe pain for up to 2 days .acute pain. Max Daily Amount: 4 tablets HYDROcodone 2-0 1{tbl} Q6H Take 1 [facility] -acetaminop 6-21 06-[address] [facility] ([facility] [employer]) 00:00: 00:00 [facility] 5-325 mg 00 :00 every 6 l per tablet (six) hours as needed for moderate pain or severe pain for up to 2 days .acute pain. Max Daily Amount: 4 tablets HYDROcodone 2021-0 1{tbl} Q6H Take 1 [facility] -acetaminop 6-21 06-[address] [facility] ([facility] [employer]) 00:00: 00:00 [facility] 5-325 mg 00 :00 every 6 l per tablet (six) hours as needed for moderate pain or severe pain for up to 2 days .acute pain. Max Daily Amount: 4 tablets HYDROcodone 2021-0 1{tbl} Q6H Take 1 [facility] -acetaminop 6-21 06-[address] [facility] ([employer]) 00:00: 00:00 [facility] 5-325 mg 00 :00 every 6 l per tablet (six) hours as needed for moderate pain or severe pain for up to 2 days .acute pain. Max Daily Amount: 4 tablets HYDROcodone 2021- 1{tbl} Q6H Take 1 [facility] -acetaminop 6-21 06-[address] [facility] ([facility]) 00:00: 00:00 [facility] 5-325 mg 00 :00 every 6 l per tablet (six) hours as needed for moderate pain or severe pain for up to 2 days .acute pain. Max Daily Amount: 4 tablets HYDROcodone 2021-0 1{tbl} Q6H Take 1 [facility] -acetaminop 6-21 06-[address] [facility] ([employer]) 00:00: 00:00 [facility] 5-325 mg 00 :00 every 6 l per tablet (six) hours as needed for moderate pain or severe pain for up to 2 days .acute pain. Max Daily Amount: 4 tablets HYDROcodone 2021-0 1{tbl} Q6H Take 1 [facility] -acetaminop 6-21 06-[address] [facility] ([employer]) 00:00: 00:00 [facility] 5-325 mg 00 :00 every 6 l per tablet (six) hours as needed for moderate pain or severe pain for up to 2 days .acute pain. Max Daily Amount: 4 tablets HYDROcodone 2022-0 2021- No [id number] 1{tbl} Q6H Take 1 [facility] -acetaminop 6-21 -[address] [facility] ([facility] [employer]) 00:00: 00:00 [facility] 5-325 mg 00 :00 every 6 l per tablet (six) hours as needed for moderate pain or severe pain for up to 2 days .acute pain. Max Daily Amount: 4 tablets HYDROcodone 2-0 2021- No [id number] 1{tbl} Q6H Take 1 [facility] -acetaminop 6-21 -[address] [facility] ([facility] [employer]) 00:00: 00:00 [facility] 5-325 mg 00 :00 every 6 l per tablet (six) hours as needed for moderate pain or severe pain for up to 2 days .acute pain. Max Daily Amount: 4 tablets HYDROcodone 2-0 2021- No [id number] 1{tbl} Q6H Take 1 [facility] -acetaminop 6-21 -[address] [facility] ([facility] [employer]) 00:00: 00:00 [facility] 5-325 mg 00 :00 every 6 l per tablet (six) hours as needed for moderate pain or severe pain for up to 2 days .acute pain. Max Daily Amount: 4 tablets HYDROcodone 2-0 2021- No [id number] 1{tbl} Q6H Take 1 [facility] -acetaminop 6-21 -[address] [facility] ([facility] [employer]) 00:00: 00:00 [facility] 5-325 mg 00 :00 every 6 l per tablet (six) hours as needed for moderate pain or severe pain for up to 2 days .acute pain. Max Daily Amount: 4 tablets HYDROcodone 2022-0 2021- No [id number] 1{tbl} Q6H Take 1 [facility] -acetaminop 6-21 06-[address] [facility] ([facility] [employer]) 00:00: 00:00 [facility] 5-325 mg 00 :00 every 6 l per tablet (six) hours as needed for moderate pain or severe pain for up to 2 days .acute pain. Max Daily Amount: 4 tablets HYDROcodone 2022-0 2021- No 1{tbl} Q6H Take 1 [facility] -acetaminop 6-21 06-[address] [facility] ([facility] [employer]) 00:00: 00:00 [facility] 5-325 mg 00 :00 every 6 l per tablet (six) hours as needed for moderate pain or severe pain for up to 2 days .acute pain. Max Daily Amount: 4 tablets HYDROcodone 2021-0 2021- No 1{tbl} Q6H Take 1 [facility] -acetaminop 6-21 06-[address] [facility] ([facility] [employer]) 00:00: 00:00 [facility] 5-325 mg 00 :00 every 6 l per tablet (six) hours as needed for moderate pain or severe pain for up to 2 days .acute pain. Max Daily Amount: 4 tablets HYDROcodone 2021-0 2021- 1{tbl} Q6H Take 1 [facility] -acetaminop 6-21 06-[address] [facility] ([facility] [employer]) 00:00: 00:00 [facility] 5-325 mg 00 :00 every 6 l per tablet (six) hours as needed for moderate pain or severe pain for up to 2 days .acute pain. Max Daily Amount: 4 tablets HYDROcodone 2021-0 2021- No 1{tbl} Q6H Take 1 [facility] -acetaminop 6-21 06-[address] [facility] ([facility]) 00:00: 00:00 [facility] 5-325 mg 00 :00 every 6 l per tablet (six) hours as needed for moderate pain or severe pain for up to 2 days .acute pain. Max Daily Amount: 4 tablets HYDROcodone 2021-0 2021- No 1{tbl} Q6H Take 1 [facility] -acetaminop 6-21 06-[address] [facility] ([facility]) 00:00: 00:00 [facility] 5-325 mg 00 :00 every 6 l per tablet (six) hours as needed for moderate pain or severe pain for up to 2 days .acute pain. Max Daily Amount: 4 tablets HYDROcodone 2021-0 2021- No 1{tbl} Q6H Take 1 [facility] -acetaminop 6-21 06-[address] [facility] ([facility]) 00:00: 00:00 [facility] 5-325 mg 00 :00 every 6 l per tablet (six) hours as needed for moderate pain or severe pain for up to 2 days .acute pain. Max Daily Amount: 4 tablets HYDROcodone 2022-0 2021- No [id number] 1{tbl} Q6H Take 1 [facility] -acetaminop 6-21 06-[address] [facility] ([facility] [employer]) 00:00: 00:00 [facility] 5-325 mg 00 :00 every 6 l per tablet (six) hours as needed for moderate pain or severe pain for up to 2 days .acute pain. Max Daily Amount: 4 tablets HYDROcodone 2022-0 2021- No [id number] 1{tbl} Q6H Take 1 [facility] -acetaminop 6-21 06-[address] [facility] ([facility]) 00:00: 00:00 [facility] 5-325 mg 00 :00 every 6 l per tablet (six) hours as needed for moderate pain or severe pain for up to 2 days .acute pain. Max Daily Amount: 4 tablets HYDROcodone 2-0 2021- No [id number] 1{tbl} Q6H Take 1 [facility] -acetaminop 6-21 06-[address] [facility] ([facility] [employer]) 00:00: 00:00 [facility] 5-325 mg 00 :00 every 6 l per tablet (six) hours as needed for moderate pain or severe pain for up to 2 days .acute pain. Max Daily Amount: 4 tablets HYDROcodone 2022-0 2021- No [id number] 1{tbl} Q6H Take 1 [facility] -acetaminop 6-21 06-[address] [facility] ([facility]) 00:00: 00:00 [facility] 5-325 mg 00 :00 every 6 l per tablet (six) hours as needed for moderate pain or severe pain for up to 2 days .acute pain. Max Daily Amount: 4 tablets HYDROcodone 2022-0 2021- No [id number] 1{tbl} Q6H Take 1 [facility] -acetaminop 6-21 06-[address] [facility] ([facility]) 00:00: 00:00 [facility] 5-325 mg 00 :00 every 6 l per tablet (six) hours as needed for moderate pain or severe pain for up to 2 days .acute pain. Max Daily Amount: 4 tablets HYDROcodone 2022-0 2022- No [id number] 1{tbl} Q6H Take 1 [facility] -acetaminop 6-21 06-[address] [facility] ([facility]) 00:00: 00:00 [facility] 5-325 mg 00 :00 every 6 l per tablet (six) hours as needed for moderate pain or severe pain for up to 2 days .acute pain. Max Daily Amount: 4 tablets HYDROcodone 2022-0 202- No [id number] 1{tbl} Q6H Take 1 [facility] -acetaminop 6-21 06-[address] [facility] ([facility]) 00:00: 00:00 [facility] 5-325 mg 00 :00 every 6 l per tablet (six) hours as needed for moderate pain or severe pain for up to 2 days .acute pain. Max Daily Amount: 4 tablets HYDROcodone 2022-0 2021- No [id number] 1{tbl} Q6H Take 1 [facility] -acetaminop 6-21 -[address] [facility] ([facility]) 00:00: 00:00 [facility] 5-325 mg 00 :00 every 6 l per tablet (six) hours as needed for moderate pain or severe pain for up to 2 days .acute pain. Max Daily Amount: 4 tablets HYDROcodone 2022-0 2021- No [id number] 1{tbl} Q6H Take 1 [facility] -acetaminop 6-21 -[address] [facility] ([facility]) 00:00: 00:00 [facility] 5-325 mg 00 :00 every 6 l per tablet (six) hours as needed for moderate pain or severe pain for up to 2 days .acute pain. Max Daily Amount: 4 tablets HYDROcodone 2022-0 2022- No [id number] 1{tbl} Q6H Take 1 [facility] -acetaminop 6-21 06-[address] [facility] ([facility]) 00:00: 00:00 [facility] 5-325 mg 00 :00 every 6 l per tablet (six) hours as needed for moderate pain or severe pain for up to 2 days .acute pain. Max Daily Amount: 4 tablets amLODIPine 2022-0 2- No 5mg QD Take 1 Meth [...] 00 :00 by mouth l daily. amLODIPine No 5mg QD Take 1 Meth john [...] MOUTH l TWICE DAILY WITH MEALS meclizine No 25mg Q.[id number] Take 1 [facility] ([facility]) 5-17 06-10 [id number] tablet (25 st 25 mg 00:00: 00:00 3D mg total) [facility] tablet 00 :00 by mouth 3 l (three) times a day as needed for dizziness for up to 30 days. meclizine 2021- No 25mg Q.[id number] Take 1 [facility] ([facility]) 517 -10 [id number] tablet (25 st 25 mg 00:00: 00:00 3D mg total) Hospit a tablet 00 :00 by mouth 3 l (three) times a day as needed for dizziness for up to 30 days. meclizine 2021- No 25mg Q.[id number] Take 1 [facility] ([facility]) 17 -10 [id number] tablet (25 st 25 mg 00:00: 00:00 3D mg total) Hospit a tablet 00 :00 by mouth 3 l (three) times a day as needed for dizziness for up to 30 days. meclizine 2021- No 25mg Q.[id number] Take 1 [facility] ([facility]) 08-26-10 [id number] tablet (25 st 25 mg 00:00: 00:00 3D mg total) [facility] a tablet 00 :00 by mouth 3 l (three) times a day as needed for dizziness for up to 30 days. meclizine 2021- No 25mg Q.[id number] Take 1 [facility] ([facility]) 08-26-10 [id number] tablet (25 st 25 mg 00:00: 00:00 3D mg total) [facility] a tablet 00 :00 by mouth 3 l (three) times a day as needed for dizziness for up to 30 days. meclizine 2021- No 25mg Q.[id number] Take 1 [facility] ([facility]) 17 -10 [id number] tablet (25 st 25 mg 00:00: 00:00 3D mg total) [facility] tablet 00 :00 by mouth 3 l (three) times a day as needed for dizziness for up to 30 days. meclizine 2021-0 2021- No 25mg Q.[id number] Take 1 [facility] ([facility]) 5-17 -10 [id number] tablet (25 st 25 mg 00:00: 00:00 3D mg total) [facility] a tablet 00 :00 by mouth 3 l (three) times a day as needed for dizziness for up to 30 days. meclizine 2022-0 2022- No 25mg Q.[id number] Take 1 [facility] ([facility]) 517 06-10 [id number] tablet (25 st 25 mg 00:00: 00:00 3D mg total) [facility] tablet 00 :00 by mouth 3 l (three) times a day as needed for dizziness for up to 30 days. meclizine 2021-0 2022- No 25mg Q.[id number] Take 1 [facility] ([facility]) 17 -10 [id number] tablet (25 st 25 mg 00:00: 00:00 3D mg total) [facility] tablet 00 :00 by mouth 3 l (three) times a day as needed for dizziness for up to 30 days. meclizine 2-0 2- No 25mg Q.[id number] Take 1 [facility] ([facility]) 517 -10 [id number] tablet (25 st 25 mg 00:00: 00:00 [...] (two) [place] [id number] 1{tbl} Q6H Take 1-2 [facility] en-codeine 4-27 05-[address] ([facility] 00:00: 04:59 mouth [facility] WITH 00 :00 every 6 l CODEINE #3) (six) 300-30 mg hours as per tablet needed for moderate pain for up to 5 days .[place]. [place] [id number] 1{tbl} Q6H Take 1-2 [facility] en-codeine 4-27 [...] 5 days .acute pain. amoxicillin 2021- No [id number] 500mg Q.5D Take 1 [facility] ([facility]) 07-[address] 500 MG 00:00: 04:59 (500 mg [facility]osp[facility] tablet 00 :00 total) by l mouth 2 (two) times a day for 7 days. amoxicillin 2021- No [id number] 500mg Q.5D Take 1 [facility] ([facility]) 07-[address] 500 MG 00:00: 04:59 (500 mg [facility]osp[facility] tablet 00 :00 total) by l mouth 2 (two) times a day for 7 days. amoxicillin 2021- No [id number] 500mg Q.5D Take 1 [facility] ([facility]) 07-[address] 500 MG 00:00: 04:59 (500 mg [facility]osp[facility] tablet 00 :00 total) by l mouth 2 (two) times a day for 7 days. amoxicillin 2021- No [id number] 500mg Q.5D Take 1 [facility] ([facility]) 07-[address] 500 MG 00:00: 04:59 (500 mg [facility]osp[facility] tablet 00 :00 total) by l mouth 2 (two) times a day for 7 days. amoxicillin 2021- No [id number] 500mg Q.5D Take 1 [facility] ([facility]) 07-[address] 500 MG 00:00: 04:59 (500 mg [facility]osp[facility] tablet 00 :00 total) by l mouth 2 (two) times a day for 7 days. amoxicillin 2021- No [id number] 500mg Q.5D Take 1 [facility] ([facility]) 07-[address] 500 MG 00:00: 04:59 (500 mg [facility]osp[facility] tablet 00 :00 total) by l mouth 2 (two) times a day for 7 days. amoxicillin 2021- No [id number] 500mg Q.5D Take 1 [facility] ([facility]) 07-[address] 500 MG 00:00: 04:59 (500 mg [facility]osp[facility] tablet 00 :00 total) by l mouth 2 (two) times a day for 7 days. amoxicillin 2021- No [id number] 500mg Q.5D Take 1 [facility] ([facility]) 07-24 [...] :00 daily for l 30 days. nicotine 2021-0 2- No 1{patch Q24H Place 1 [facility] (Nicoderm 4-13 05-14 } patch on [facility]) 21 00:00: 04:59 [facility] mg/24 hr 00 :00 daily for l 30 days. nicotine 2021-0 2- No 1{patch Q24H Place 1 [facility] (Nicoderm 4-13 05-14 } patch on [facility]) 00:00: 04:59 [facility] mg/24 hr 00 :00 daily for l 30 days. amLODIPine 2021-0 2022- No 5mg QD Take [...] hours for 30 days. amoxicillin 2021-2021- No [id number] 500mg Q.5D Take 1 [facility] ([facility]) 06-[address] 500 MG 00:00: 04:59 (500 mg [facility]osp[facility] tablet 00 :00 total) by l mouth in the morning and 1 tablet (500 mg total) before bedtime. Do all this for 7 days. amoxicillin 2021-0 2021- No [id number] 500mg Q.5D Take 1 [facility] ([facility]) 06-[address] 500 MG 00:00: 04:59 (500 mg [facility]osp[facility] tablet 00 :00 total) by l mouth in the morning and 1 tablet (500 mg total) before bedtime. Do all this for 7 days. amoxicillin No [id number] 500mg Q.5D Take 1 [facility] ([facility]) 06-[address] 500 MG 00:00: 04:59 (500 mg [facility]osp[facility] tablet 00 :00 total) by l mouth in the morning and 1 tablet (500 mg total) before bedtime. Do all this for 7 days. amoxicillin 2021- No [id number] 500mg Q.5D Take 1 [facility] ([facility]) 06-[address] 500 MG 00:00: 04:59 (500 mg [facility]osp[facility] tablet 00 :00 total) by l mouth in the morning and 1 tablet (500 mg total) before bedtime. Do all this for 7 days. amoxicillin 2021- No [id number] 500mg Q.5D Take 1 [facility] ([facility]) 06-[address] 500 MG 00:00: 04:59 (500 mg [facility]osp[facility] tablet 00 :00 total) by l mouth in the morning and 1 tablet (500 mg total) before bedtime. Do all this for 7 days. amoxicillin 2021- No [id number] 500mg Q.5D Take 1 [facility] ([facility]) 06-[address] 500 MG 00:00: 04:59 (500 mg [facility]osp[facility] tablet 00 :00 total) by l mouth in the morning and 1 tablet (500 mg total) before bedtime. Do all this for 7 days. amoxicillin 2021- No [id number] 500mg Q.5D Take 1 [facility] ([facility]) 06-[address] 500 MG 00:00: 04:59 (500 mg [facility]osp[facility] tablet 00 :00 total) by l mouth in the morning and 1 tablet (500 mg total) before bedtime. Do all this for 7 days. amoxicillin 2021- No [id number] 500mg Q.5D Take 1 [facility] ([facility]) 06-18 [...] amLODIPine 2021-0 2- No [facility] ([facility]) 2-03 04-05 st [...] l amLODIPine 2022-0 2022- [facility]05 st 2.5 mg 00:00: 00:00 [facility]ospita tablet 00 :00 l amLODIPine 2022-0 2022- No [facility]-05 st 2.5 mg 00:00: 00:00 [facility]osp[facility] tablet 00 :00 l amLODIPine 2022-0 2022- No [facility]-05 st 2.5 mg 00:00: 00:00 [facility]osp[facility] tablet 00 :00 l HYDROcodone 2022-0 2022- No [id number] 1{tbl} Q6H Take 1 [facility] -acetaminop 05-04 tablet by [employer]) 00:00: 05:59 [facility] 5-325 mg 00 :00 every 6 l per tablet (six) hours as needed for moderate pain for up to 5 days .acute pain. Max Daily Amount: 4 tablets HYDROcodone 2022-0 2022- No [id number] 1{tbl} Q6H Take 1 [facility] -acetaminop 05-04 tablet by [employer]) 00:00: 05:59 [facility] 5-325 mg 00 :00 every 6 l per tablet (six) hours as needed for moderate pain for up to 5 days .acute pain. Max Daily Amount: 4 tablets HYDROcodone 2022-0 2022- No [id number] 1{tbl} Q6H Take 1 [facility] -acetaminop 05-[address] [facility] ([facility]) 00:00: 05:59 [facility] 5-325 mg 00 :00 every 6 l per tablet (six) hours as needed for moderate pain for up to 5 days .acute pain. Max Daily Amount: 4 tablets HYDROcodone 1{tbl} Q6H Take 1 [facility] -acetaminop 05-[address] [facility] ([facility]) 00:00: 05:59 [facility] 5-325 mg 00 :00 every 6 l per tablet (six) hours as needed for moderate pain for up to 5 days .acute pain. Max Daily Amount: 4 tablets HYDROcodone 1{tbl} Q6H Take 1 [facility] -acetaminop 05-[address] [facility] ([facility]) 00:00: 05:59 [facility] 5-325 mg 00 :00 every 6 l per tablet (six) hours as needed for moderate pain for up to 5 days .acute pain. Max Daily Amount: 4 tablets HYDROcodone 1{tbl} Q6H Take 1 [facility] -acetaminop 05-[address] [facility] ([facility]) 00:00: 05:59 [facility] 5-325 mg [...] for up to 30 [place] [id number] 1{tbl} Q6H Take 1 [facility] en-codeine 04-12 [...] to 5 days .[place]. [place] [id number] 1{tbl} Q6H Take 1 [facility] en-codeine 04-[address] (TYLENOL 00:00: 05:59 [facility] WITH 00 :00 every 6 l CODEINE #3) (six) 300-30 mg hours as per tablet needed for severe pain for up to 5 days .[place] [id number] 1{tbl} Q6H Take 1 [facility] en-codeine 04-[address] (TYLENOL 00:00: 05:59 [facility] WITH 00 :00 every 6 l CODEINE #3) (six) 300-30 mg hours as per tablet needed for severe pain for up to 5 days .[place] [id number] 1{tbl} Q6H Take 1 [facility] en-codeine 04-[address] (TYLENOL 00:00: 05:59 [facility] WITH 00 :00 every 6 l CODEINE #3) (six) 300-30 mg hours as per tablet needed for severe pain for up to 5 days [place] [id number] 50mg Q6H Take 1 [facility] (ULTRAM) 50 04-12 tablet (50 s t mg tablet 00:00: 00:00 mg total) [facility] 00 :00 by mouth l every 6 (six) hours as needed for moderate pain for up to 5 days .[place] [id number] 50mg Q6H Take 1 [facility] (ULTRAM) 50 04-12 tablet (50 s t mg tablet 00:00: 00:00 mg total) [facility] 00 :00 by mouth l every 6 (six) hours as needed for moderate pain for up to 5 days .[place] [id number] 50mg Q6H Take 1 [facility] (ULTRAM) 50 04-12 tablet (50 s t mg tablet 00:00: 00:00 mg total) [facility] 00 :00 by mouth l every 6 (six) hours as needed for moderate pain for up to 5 days .[place]. [place] [id number] 50mg Q6H Take 1 [facility] (ULTRAM) [...] traMADoL 2019-04 Yes S/P 50mg Take 1 [facility] (ULTRAM) 50 2-03 cervical tablet by [facility] [...] 1 Maria rris (LIORESAL) 9-24 tablet by [facility] 10 mg 00:00: mouth 2 tablet 00 times daily as needed (muscle spasms) STOP cyclobenza kasia (FLEXERIL) 10 mg tablet. baclofen Yes Neck pain 10mg Take 1 [facility] (LIORESAL) 9-24 tablet by [facility] 10 mg 00:00: mouth 2 tablet 00 times daily as needed (muscle spasms) STOP cyclobenza kasia (FLEXERIL) 10 mg tablet. baclofen 0 Yes Neck pain 10mg Take 1 [facility] (LIORESAL) 9-24 tablet by [facility] 10 mg 00:00: mouth 2 tablet 00 times daily as needed (muscle spasms) STOP cyclobenza kasia (FLEXERIL) 10 mg tablet. baclofen 0 Yes Neck pain 10mg Take 1 [facility] (LIORESAL) 9-24 tablet by [facility] 10 mg 00:00: mouth 2 tablet 00 times daily as needed (muscle spasms) STOP cyclobenza kasia (FLEXERIL) 10 mg tablet. baclofen 2020-0 Yes Neck pain 10mg Take 1 [facility] (LIORESAL) 9-24 tablet by [facility] 10 mg 00:00: mouth 2 tablet 00 times daily as needed (muscle spasms) STOP cyclobenza [facility]asia (FLEXERIL) 10 mg tablet. baclofen 2020-0 Yes Neck pain 10mg Take 1 [facility] (LIORESAL) 9-24 tablet by [facility] 10 mg 00:00: mouth 2 tablet 00 times daily as needed (muscle spasms) STOP cyclobenza kasia (FLEXERIL) 10 mg tablet. baclofen 2020-0 Yes Neck pain 10mg Take 1 [facility] (LIORESAL) 9-24 tablet by [facility] 10 mg 00:00: mouth 2 tablet 00 times daily as needed (muscle spasms) STOP cyclobenza kasia (FLEXERIL) 10 mg tablet. baclofen 2020-0 Yes Neck pain 10mg Take 1 Maria rris (LIORESAL) 9-24 tablet by [facility] 10 mg 00:00: mouth 2 tablet 00 times daily as needed (muscle spasms) STOP cyclobenza kasia (FLEXERIL) 10 mg tablet. baclofen 2020-0 Yes Neck pain 10mg Take 1 Maria rris (LIORESAL) 9-24 tablet by [facility] 10 mg 00:00: mouth 2 tablet 00 times daily as needed (muscle spasms) STOP cyclobenza kasia (FLEXERIL) 10 mg tablet. baclofen 2020-0 Yes Neck pain 10mg Take 1 Maria rris (LIORESAL) 9-24 tablet by [facility] 10 mg 00:00: mouth 2 tablet 00 times daily as needed (muscle spasms) STOP cyclobenza kasia (FLEXERIL) 10 mg tablet. baclofen 2020-0 Yes Neck pain 10mg Take 1 Maria rris (LIORESAL) 9-24 tablet by [facility] 10 mg 00:00: mouth 2 tablet 00 times daily as needed (muscle spasms) STOP cyclobenza kasia (FLEXERIL) 10 mg tablet. baclofen 2020-0 Yes Neck pain 10mg Take 1 Maria rris (LIORESAL) 9-24 tablet by [facility] 10 mg 00:00: mouth 2 tablet 00 times daily as needed (muscle spasms) STOP cyclobenza kasia (FLEXERIL) 10 mg tablet. baclofen 2020-0 Yes Neck pain 10mg Take 1 Maria rris (LIORESAL) 9-24 tablet by [facility] 10 mg 00:00: mouth 2 tablet 00 times daily as needed (muscle spasms) STOP cyclobenza kasia (FLEXERIL) 10 mg tablet. baclofen 2020-0 Yes Neck pain 10mg Take 1 Maria rris (LIORESAL) 9-24 tablet by [facility] 10 mg 00:00: mouth 2 tablet 00 times daily as needed (muscle spasms) STOP cyclobenza kasia (FLEXERIL) 10 mg tablet. baclofen 2020-0 Yes Neck pain 10mg Take 1 Maria rris (LIORESAL) 9-24 tablet by [facility] 10 mg 00:00: mouth 2 tablet 00 times daily as needed (muscle spasms) STOP cyclobenza kasia (FLEXERIL) 10 mg tablet. baclofen 2020-0 Yes Neck pain 10mg Take 1 Maria rris (LIORESAL) 9-24 tablet by [facility] 10 mg 00:00: mouth 2 tablet 00 times daily as needed (muscle spasms) STOP cyclobenza kasia (FLEXERIL) 10 mg tablet. baclofen 2020-0 Yes Neck pain 10mg Take 1 Maria rris (LIORESAL) 9-24 tablet by [facility] 10 mg 00:00: mouth 2 tablet 00 times daily as needed (muscle spasms) STOP cyclobenza kasia (FLEXERIL) 10 mg tablet. baclofen 2020-0 Yes Neck pain 10mg Take 1 Maria rris (LIORESAL) 9-24 tablet by [facility] 10 mg 00:00: mouth 2 tablet 00 times daily as needed (muscle spasms) STOP cyclobenza kasia (FLEXERIL) 10 mg tablet. amitriptyli 2020-0 Yes Neck pain 25mg Take 1 Mahmood ne (ELAVIL) 9-[address] [facility] 25 mg 00:00: mouth at tablet 00 bedtime nightly. amitriptyli 2020-0 Yes Neck pain 25mg Take 1 Mahmood ne (ELAVIL) 9-03 tablet by [facility] lt 25 mg 00:00: mouth at tablet [...] for Pain. MULTIVITAMI 2018-0 Yes Take by Tom ris N (DAILY 9-24 mouth. Health VITAMIN OR) 08:09: 11 sulfamethox 2019-0 Yes 1{tbl} Q.5D Take 1 Maria rris azole-trime 9-[address] [facility] thoprim 08:09: mouth 2 (BACTRIM 11 times DS) 800-160 daily. mg per tablet MULTIVITAMI 2018-0 Yes Take by [facility] N (DAILY 9-24 mouth. Health VITAMIN OR) 08:09: 11 sulfamethox 2019-0 Yes 1{tbl} Q.5D Take 1 Maria rris azole-trime 9-[address] [facility] thoprim 08:09: mouth 2 (BACTRIM 11 times DS) 800-160 daily. mg per tablet MULTIVITAMI 2019-0 Yes Take by Tom [facility] N (DAILY 9-24 mouth. Health VITAMIN OR) 08:09: 11 sulfamethox 2019-0 Yes 1{tbl} Q.5D Take 1 Maria rris azole-trime 9-[address] [facility] thoprim 08:09: mouth 2 (BACTRIM 11 times DS) 800-160 daily. mg per tablet MULTIVITAMI 2019-0 Yes Take by Tom [facility] N (DAILY 9-24 mouth. Health VITAMIN OR) 08:09: 11 sulfamethox 2019-0 Yes 1{tbl} Q.5D Take 1 Maria rris azole-trime 9-[address] [facility] thoprim 08:09: mouth 2 (BACTRIM 11 times DS) 800-160 daily. mg per tablet MULTIVITAMI 2019-0 Yes Take by [facility] N (DAILY 9-24 mouth. Health VITAMIN OR) 08:09: 11 sulfamethox 2019-0 Yes 1{tbl} Q.5D Take 1 Maria rris azole-trime 9-[address] [facility] thoprim 08:09: mouth 2 (BACTRIM 11 times DS) 800-160 daily. mg per tablet MULTIVITAMI 2019-0 Yes Take by [facility] (DAILY 9-24 mouth. Health VITAMIN OR) 08:09: 11 sulfamethox 2019-0 Yes 1{tbl} Q.5D Take 1 Maria rris azole-trime 9-[address] [facility] thoprim 08:09: mouth 2 (BACTRIM 11 times DS) 800-160 daily. mg per tablet MULTIVITAMI 2019-0 Yes Take by [facility] (DAILY 9-24 mouth. Health VITAMIN OR) 08:09: 11 sulfamethox 2019-0 Yes 1{tbl} Q.5D Take 1 Maria rris azole-trime 9-[address] [facility] thoprim 08:09: mouth 2 (BACTRIM 11 times DS) 800-160 daily. mg per tablet MULTIVITAMI 2019-0 Yes Take by [facility] (DAILY 9-24 mouth. Health VITAMIN OR) 08:09: 11 sulfamethox 2019-0 Yes 1{tbl} Q.5D Take 1 Maria rris azole-trime 9-[address] [facility] thoprim 08:09: mouth 2 (BACTRIM 11 [...] times daily and after each bath.. silver 0 Yes Desquamated Apply Tom ris [...] arris (MOTRIN IB) 2-13 cancer tablets by [facility] 200 mg 00:00: mouth tablet 00 every 6 hours as needed for Pain. Immunizations Ordered Filled Immunization Date Status Comments [facility] e Immunization Name Name FLUCDAMIÁNVAX ALEJANDRA LUCERO 2021-02-[address] 00[facility]00:00 [facility] FLUCELVAX QUAD PF 2021-02-[address] 00:00:00 [facility] FLUCELVAX QUAD PF 2021-02-[address] [facility] FLUCELVAX QUAD PF 2021-02-[address] [facility] FLUCELVAX QUAD PF 2021-02-[address] 00:[facility] FLUCELVAX QUAD PF 2021-02-[address] 00:00:00 [facility] FLUCELVAX QUAD PF 2021-02-[address] 00:00:00 [facility] FLUCELVAX QUAD PF 2021-02-[address] 00:00:00 [facility] FLUCELVAX QUAD 2021-02-[address] 00:00:00 [facility] FLUCELVAX QUAD 2021-02-[address] 00:00:00 [facility] FLUCELVAX QUAD 2021-02-[address] 00:00:00 [facility] FLUCELVAX QUAD 2021-02-[address] 00:00:00 [facility] FLUCELVAX QUAD 2021-02-[address] 00:00:00 [facility] FLUCELVAX QUAD 2021-02-[address] 00:00:00 [facility] PFIZER COVID-19 2020-08-05 Completed [facility] VACCINATION 00:00:00 [facility] PFIZER COVID-19 2020-08-05 Completed [facility] VACCINATION 00:00:00 [facility] PFIZER COVID-19 2020-08-05 Completed [facility] VACCINATION 00:00:00 [facility] PFIZER COVID-19 2020-08-05 Completed [facility] VACCINATION 00:00:00 [facility] PFIZER COVID-19 2020-08-05 Completed [facility] VACCINATION 00:00:00 [facility] PFIZER COVID-19 2020-08-05 Completed [facility] VACCINATION 00:00:00 [facility] PFIZER COVID-19 2020-08-05 Completed [facility] 00:00:00 [facility] PFIZER COVID-19 2020-08-05 Completed [facility] VACCINATION 00:00:00 [facility] PFIZER COVID-19 2020-08-05 Completed [facility] VACCINATION 00:00:00 [facility] PFIZER COVID-19 2020-08-05 Completed [facility] VACCINATION 00:00:00 [facility] PFIZER COVID-19 2020-08-05 Completed [facility] VACCINATION 00:00:00 [facility] PFIZER COVID-19 2020-08-05 Completed [facility] VACCINATION 00:00:00 [facility] PFIZER COVID-19 2020-08-05 Completed [facility] VACCINATION 00:00:00 [facility] PFIZER COVID-19 2020-08-05 Completed [facility] VACCINATION 00:00:00 [facility] PFIZER COVID-19 2020-07-08 Completed [facility] VACCINATION 00:00:00 [facility] PFIZER COVID-19 2020-07-08 Completed [facility] VACCINATION 00:00:00 [facility] PFIZER COVID-19 2020-07-08 Completed [facility] VACCINATION 00:00:00 [facility] PFIZER COVID-19 2020-07-08 Completed [facility] VACCINATION 00:00:00 [facility] PFIZER COVID-19 2020-07-08 Completed [facility] VACCINATION 00:00:00 [facility] PFIZER COVID-19 2020-07-08 Completed [facility] VACCINATION 00:00:00 [facility] PFIZER COVID-19 2020-07-08 Completed [facility] VACCINATION 00:00:00 [facility] PFIZER COVID-19 2020-07-08 Completed [facility] VACCINATION 00:00:00 [facility] PFIZER COVID-19 2020-07-08 Completed [facility] VACCINATION 00:00:00 [facility] PFIZER COVID-19 2020-07-08 Completed [facility] VACCINATION 00:00:00 [facility] PFIZER COVID-19 2020-07-08 Completed [facility] VACCINATION 00:00:00 [facility] PFIZER COVID-19 2020-07-08 Completed [facility] VACCINATION 00:00:00 [facility] PFIZER COVID-19 2020-07-08 Completed [facility] VACCINATION 00:00:00 [facility] PFIZER COVID-19 2020-07-08 Completed [facility] VACC[facility] 00:00:00 [facility] Influenza, 2020-03-12 Completed [facility] Vaccine<FLUCELVAX>( 00:00:00 Multi-Dose) Tdap (Tetanus 2020-03-[address] [facility] th Toxoid, Reduced 00:00:00 Diphtheria Toxoid And Acellular Pertussis, Absorbed) Influenza, 2020-03-12 Completed [facility] Vaccine<FLUCELVAX>( 00:00:00 Multi-Dose) Tdap (Tetanus 2020-03-12 Completed [facility] Toxoid, Reduced 00:00:00 Diphtheria Toxoid And Acellular Pertussis, Absorbed) Influenza, 2020-03-12 Completed [facility] Vaccine<FLUCELVAX>( 00:00:00 Multi-Dose) Tdap (Tetanus 2020-03-[address] [facility] th Toxoid, Reduced 00:00:00 Diphtheria Toxoid And Acellular Pertussis, Absorbed) Influenza, 2020-03-12 Completed [facility] Vaccine<FLUCELVAX>( 00:00:00 Multi-Dose) Tdap (Tetanus 2020-03-[address] [facility] th Toxoid, Reduced 00:00:00 Diphtheria Toxoid And Acellular Pertussis, Absorbed) Influenza, 2020-03-12 Completed [facility] Vaccine<FLUCELVAX>( 00:00:00 Multi-Dose) Tdap (Tetanus 2020-03-[address] [facility] th Toxoid, Reduced 00:00:00 Diphtheria Toxoid And Acellular Pertussis, Absorbed) Influenza, 2020-03-12 Completed [facility] Vaccine<FLUCELVAX>( 00:00:00 Multi-Dose) Tdap (Tetanus 2020-03-[address] [facility] th Toxoid, Reduced 00:00:00 Diphtheria Toxoid And Acellular Pertussis, Absorbed) Influenza, 2020-03-12 Completed [facility] Vaccine<FLUCELVAX>( 00:00:00 Multi-Dose) Tdap (Tetanus 2020-03-[address] [facility] th Toxoid, Reduced 00:00:00 Diphtheria Toxoid And Acellular Pertussis, Absorbed) Influenza, 2020-03-12 Completed [facility] Vaccine<FLUCELVAX>( 00:00:00 Multi-Dose) Tdap (Tetanus 2020-03-[address] [facility] th Toxoid, Reduced 00:00:00 Diphtheria Toxoid And Acellular Pertussis, Absorbed) Influenza, 2020-03-12 Completed [facility] Vaccine<FLUCELVAX>( 00:00:00 Multi-Dose) Tdap (Tetanus 2020-03-[address] [facility] th Toxoid, Reduced 00:00:00 Diphtheria Toxoid And Acellular Pertussis, Absorbed) Influenza, 2020-03-12 Completed [facility] Vaccine<FLUCELVAX>( 00:00:00 Multi-Dose) Tdap (Tetanus 2020-03-[address] [facility] th Toxoid, Reduced 00:00:00 Diphtheria Toxoid And Acellular Pertussis, Absorbed) Influenza, 2020-03-12 Completed [facility] Vaccine<FLUCELVAX>( 00:00:00 Multi-Dose) Tdap (Tetanus 2020-03-[address] [facility] th Toxoid, Reduced 00:00:00 Diphtheria Toxoid And Acellular Pertussis, Absorbed) Influenza, 2020-03-12 Completed [facility] Vaccine<FLUCELVAX>( 00:00:00 Multi-Dose) Tdap (Tetanus 2020-03-[address] [facility] th Toxoid, Reduced 00:00:00 Diphtheria Toxoid And Acellular Pertussis, Absorbed) Influenza, 2020-03-12 Completed [facility] Vaccine<FLUCELVAX>( 00:00:00 Multi-Dose) Tdap (Tetanus 2020-03-[address] [facility] th Toxoid, Reduced 00:00:00 Diphtheria Toxoid And Acellular Pertussis, Absorbed) Influenza, 2020-03-12 Completed [facility] Vaccine<FLUCELVAX>( 00:00:00 Multi-Dose) Tdap (Tetanus 2020-03-[address] [facility] th Toxoid, Reduced 00:00:00 Diphtheria Toxoid And Acellular Pertussis, Absorbed) Influenza, Unknown Completed [facility] Vaccine<FLUCELVAX>( Multi-Dose) Tdap (Tetanus Unknown Completed [facility] Toxoid, Reduced Diphtheria Toxoid And Acellular Pertussis, Absorbed) FLUCELVAX QUAD PF Unknown Completed [facility] PFIZER COVID-19 Unknown Completed [facility] VACCIN[facility] PFIZER COVID-19 Unknown Completed [facility] FLUCELVAX QUAD PF Unknown Completed [facility] PFIZER COVID-19 Unknown Completed [facility] VACC[facility] PFIZER COVID-19 Unknown Completed [facility] FLUCELVAX QUAD PF Unknown Completed [facility] PFIZER COVID-19 Unknown Completed [facility] VACC[facility] PFIZER COVID-19 Unknown Completed [facility] VACC[facility] FLUCELVAX QUAD PF Unknown Completed [facility] PFIZER COVID-19 Unknown Completed [facility] VACCINATION [facility] COVID-19 Unknown Completed [facility] VACCINATION [facility] Influenza, Unknown Completed [facility] Vaccine<FLUCELVAX>( Multi-Dose) Tdap (Tetanus Unknown Completed [facility] Toxoid, Reduced Diphtheria Toxoid And Acellular Pertussis, Absorbed) Influenza, Unknown Completed [facility] Vaccine<FLUCELVAX>( Multi-Dose) Tdap (Tetanus Unknown Completed [facility] Toxoid, Reduced Diphtheria Toxoid And Acellular Pertussis, Absorbed) Influenza, Unknown Completed [facility] Vaccine<FLUCELVAX>( Multi-Dose) Tdap (Tetanus Unknown Completed [facility] Toxoid, Reduced Diphtheria Toxoid And Acellular Pertussis, Absorbed) Vital Signs Vital Name Observation Time Observation Value Comments Source Systolic blood 2022-02-20 01:13:29 129 mm[Hg] [facility] pressure Diastolic blood 2022-02-20 01:13:29 67 mm[Hg] [facility] pressure Heart rate 2022-02-20 01:13:29 60 /min [facility] Respiratory rate 2022-02-20 01:13:29 18 /min [facility] Oxygen saturation in 2022-02-20 01:13:29 96 /min [facility] Arterial blood by Pulse oximetry Body height 2022-02-19 20:30:00 162.6 cm [facility] Body weight 2022-02-19 20:30:00 79.379 kg [facility] BMI 2022-02-19 20:30:00 30.04 kg/m2 [facility] Body temperature 2022-02-19 20:29:09 36.61 Nydia [facility] pulse rate 2021-12-16 13:21:49 87 /min [facility] blood pressure, 2021-12-16 13:21:49 67 mm[Hg] [facility] diastolic [facility] blood pressure, 2021-12-16 13:21:49 132 mm[Hg] [facility] systolic Health pulse rate 2020-11-25 14:31:56 70 /min [facility] blood pressure, 2020-11-25 14:31:56 74 mm[Hg] [facility] diastolic [facility] blood pressure, 2020-11-25 14:31:56 113 mm[Hg] [facility] systolic Health pulse rate 2020-11-25 13:39:38 70 /min [facility] blood pressure, 2020-11-25 13:39:38 74 mm[Hg] [facility] blood pressure, 2020-11-25 13:39:38 113 mm[Hg] [facility] systolic Health Procedures Procedure Date / Time Performing Source Performed Clinician CT CHEST WO CONTRAST ABDOMEN WO 2022-02-20 Cristóbal Ovalle CONTRAST PELVIS WO CONTRAST 01:47:08 [facility] ECG ED PRELIMINARY INTERPRETATION 2022-02-20 Cristóbal Ovalle 01:34:30 [facility] CBC WITH PLATELET AND DIFFERENTIAL 2022-02-19 Pa Manning [facility] 21:40:00 [facility] COMPREHENSIVE METABOLIC PANEL 2022-02-19 Alee [facility] 21:40:00 [facility] HCG QUALITATIVE, SERUM SCREEN 2022-02-19 Alee [facility] 21:40:00 [facility] ESTIMATED GFR 2022-02-19 Alee Manning 21:40:00 [facility] ECG 12-LEAD 2022-02-19 Alee Manningist 20:46:22 Hospital URINE CULTURE 2022-02-19 Alee Manning 20:34:00 [facility] URINALYSIS SCREEN AND MICROSCOPY, 2022-02-19 Eulalio Manning WITH REFLEX TO CULTURE 20:34:00 [facility] HEPATITIS B SURFACE ANTIGEN 2022-02-05 Eddie [...] Eddie Farris st QUANTITATIVE PCR 15:30:00 Hospital HIV 1/2 ANTIGEN/ANTIBODY, FOURTH 2022-02-05 Prasanth, Eddie C. [facility] GENERATION, WITH REFLEXES 15:30:00 Hospit al ZZHSV 1 AND 2 SPECIFIC AB IGG 2022-02-05 Eddie [facility]arris [facility] 15:30:00 [facility] SURGICAL PATHOLOGY REQUEST 2021-12-26 Esthela Small [facility] 18:06:00 [facility] COLONOSCOPY 2021-12-26 Esthela Small [facility] 15:44:00 Hospital ESOPHAGOGASTRODUODENOSCOPY (EGD) 2021-12-26 Esthela Small [facility] 15:44:00 [facility] COVID-19 QUALITATIVE RT-PCR 2021-12-24 Esthela Smlal [facility] 12:41:00 [facility] THINPREP TIS AND HPV MRNA E6/E7 2021-12-18 Eddie [facility]ist 18:34:00 [facility] ECG 12-LEAD 2021-11-28 VejAntonio arzolaist 15:26:34 [facility] TROPONIN T 2021-11-07 Zeyad Cohen 20:01:00 [facility] COVID-19 QUALITATIVE RT-PCR 2021-11-07 Zeyad Cohen odist 19:09:00 [facility] COVID-19 OMICRON VARIANT 2021-11-[address] QUALITATIVE RT-PCR 19:09:00 [facility] XR CHEST 2 VW 2021-11-07 Zeyad Cohen 18:51:38 [facility] ECG ED PRELIMINARY INTERPRETATION 2021-11-07 Karo Cohen 18:50:27 [facility] COMPREHENSIVE METABOLIC PANEL 2021-11-07 [facility]ad [facility] 18:03:00 [facility] TROPONIN T 2021-11-07 Zeyad Cohen 18:03:00 [facility] CBC WITH PLATELET AND DIFFERENTIAL 2021-11-07 Ed Cohen 18:03:00 [facility] HCG QUALITATIVE, SERUM SCREEN 2021-11-07 Z[facility]ad [facility] 18:03:00 [facility] ESTIMATED GFR 2021-11-07 Zeyad Cohen 18:03:00 [facility] ECG 12-LEAD 2021-11-07 OgLiborio henriquez [facility] 17:57:16 [facility] FL UGI W OR WO KUB 2021-11-03 Esthela Smallist 15:16:30 Hospital HEPATITIS C VIRUS (HCV), 2021-11-03 Esthela Small [facility] QUANTITATIVE PCR 13:52:00 Hospital HEPATIC FUNCTION PANEL 2021-11-03 Esthela Small [facility] 13:52:00 Hospital XR CHEST 2 VW 2021-10-15 José Riderist 02:52:42 Hospital COMPREHENSIVE METABOLIC PANEL 2021-10-15 Mario Maher thodist 01:15:00 [facility] TROPONIN T 2021-10-15 Mario Maher 01:15:00 [facility] B NATRIURETIC PEPTIDE 2021-10-15 Mario Maher 01:15:00 [facility] CBC WITH PLATELET AND DIFFERENTIAL 2021-10-15 Marques Maher 01:15:00 [facility] PROTHROMBIN TIME WITH INR 2021-10-15 Mario Maher ist 01:15:00 [facility] PARTIAL THROMBOPLASTIN TIME (PTT) 2021-10-15 Mario Maher 01:15:00 [facility] ESTIMATED GFR 2021-10-15 Mario Maher 01:15:00 [facility] ECG 12-LEAD 2021-10-15 Mario Maher 00:33:[address] [facility] [address] ANGIOGRAM PE CHEST 2021-10-12 Trung Courtney [...] Hospital URINE CULTURE 2021-10-12 Rajinder Ordoñez 15:17:00 [facility] URINALYSIS SCREEN AND MICROSCOPY, 2021-10-12 Arslan Ordoñez WITH REFLEX TO CULTURE 15:17:00 [facility] HCG QUALITATIVE, URINE SCREEN 2021-10-12 Rajinder Ordoñez 15:17:00 [facility] ECG 12-LEAD 2021-10-12 Rajinder Ordoñez 14:48:50 [facility] MS AN ELECTIVE SUPRAGLOTTIC AIRWAY 2021-09-30 Ruddy Marie 12:10:00 Hospital DECOMPRESSION, ULNAR NERVE 2021-09-30 Rebecca Brownlee 12:06:00 [facility] COVID-19 QUALITATIVE RT-PCR 2021-09-26 Dulce Maria Pierre 14:23:00 [facility] PROTHROMBIN TIME WITH INR 2021-09-26 Antonio Pierret 14:23:00 [facility] PARTIAL THROMBOPLASTIN TIME (PTT) 2021-09-26 Keith Pierre 14:23:00 [facility] COMPREHENSIVE METABOLIC PANEL 2021-09-26 Me Gabby thodist 14:23:00 [facility] ESTIMATED GFR 2021-09-26 Rebecca Brownlee 14:23:00 [facility] HEMOGLOBIN A1C 2021-09-26 Rebecca Brownlee 14:23:00 [facility] CBC WITH PLATELET AND DIFFERENTIAL 2021-09-19 Lexie Esparza 07:10:00 Hospital THYROID STIMULATING HORMONE 2021-09-19 Peggy Esparza 07:10:00 [facility] CBC WITH PLATELET AND DIFFERENTIAL 2021-09-19 Lexie Esparza 07:10:00 Hospital XR ELBOW 3+ VW LEFT 2021-09-10 Rebecca Brownlee 15:28:[address] [facility] [address] ANGIOGRAM NECK W WO CONTRAST 2021-08-27 Brenda Retana 00:01:[address] [facility] [address] ANGIOGRAM HEAD W WO CONTRAST 2021-08-27 Brenda Retana 00:00:[address] [facility] [address] HEAD WO CONTRAST 2021-08-26 Brenda Retnaa 23:42:36 [facility] ECG ED PRELIMINARY INTERPRETATION 2021-08-26 Brenda Retana 23:22:45 [facility] CBC WITH PLATELET AND DIFFERENTIAL 2021-08-26 Willie Retana 21:57:00 [facility] COMPREHENSIVE METABOLIC PANEL 2021-08-26 Brenda Retana [facility] 21:57:00 [facility] TROPONIN T 2021-08-26 Brenda Retana 21:57:00 [facility] B NATRIURETIC PEPTIDE 2021-08-26 Brenda Retana 21:57:00 [facility] HCG QUALITATIVE, SERUM SCREEN 2021-08-26 Brenda Retana [facility] 21:57:00 [facility] ESTIMATED GFR 2021-08-26 Brenda Retana 21:57:00 [facility] ECG 12-LEAD 2021-08-26 Brenda Retana 21:42:16 [facility] URINE CULTURE 2021-08-06 Myles Martin 22:27:00 [facility] URINALYSIS SCREEN AND MICROSCOPY, 2021-08-06 Myles Martin Si WITH REFLEX TO CULTURE 22:27:00 Hospital XR CHEST 2 VW 2021-08-06 Myles Martin 20:36:00 [facility] INFLUENZA ANTIGEN 2021-08-06 Susie Melton 20:10:00 [facility] RESPIRATORY PATHOGEN PANEL WITH 2021-08-06 Susie Melton COVID-19 RT-PCR 20:10:00 [facility] ECG ED PRELIMINARY INTERPRETATION 2021-08-06 Myles Martin Si 20:08:02 [facility] COMPREHENSIVE METABOLIC PANEL 2021-08-06 Susie Melton [facility] 20:05:00 [facility] CBC WITH PLATELET AND DIFFERENTIAL 2021-08-06 Montserrat Melton 20:05:00 [facility] TROPONIN T 2021-08-06 Susie Melton 20:05:00 [facility] LIPASE LEVEL 2021-08-06 Susie Melton 20:05:00 [facility] ESTIMATED GFR 2021-08-06 Susie Melton 20:05:00 [facility] ECG 12-LEAD 2021-08-06 Susie Meltonist 19:55:29 [facility] TROPONIN T 2021-08-01 Brenda Retana 03:32:00 [facility] ECG ED PRELIMINARY INTERPRETATION 2021-08-01 Nelson Villagran i [facility] 02:37:45 Hospital CBC WITH PLATELET AND DIFFERENTIAL 2021-08-01 Willie Retana [facility] 00:35:00 [facility] COMPREHENSIVE METABOLIC PANEL 2021-08-01 Brenda Retana thodist 00:35:00 [facility] TROPONIN T 2021-08-01 Brenda Retanaist 00:35:00 [facility] B NATRIURETIC PEPTIDE 2021-08-01 Brenda Retana 00:35:00 [facility] ESTIMATED GFR 2021-08-01 Brenda Retanaist 00:35:00 [facility] ECG 12-LEAD 2021-08-01 Brenda Retana 00:23:19 [facility] TROPONIN T 2021-07-30 Jaida Sales 21:35:00 Hospital ECG ED PRELIMINARY INTERPRETATION 2021-07-30 Myles Martin Si [facility] 19:53:48 Hospital XR CHEST 2 VW 2021-07-30 Myles Martin [facility] 19:37:56 [facility] COMPREHENSIVE METABOLIC PANEL 2021-07-30 Jaida Sales 18:40:00 Hospital CBC WITH PLATELET AND DIFFERENTIAL 2021-07-30 Jaida Sales 18:40:00 Hospital TROPONIN T 2021-07-30 Jaida Sales 18:40:00 Hospital B NATRIURETIC PEPTIDE 2021-07-[address] 18:40:00 Hospital ESTIMATED GFR 2021-07-30 Jaida Sales 18:40:00 Hospital ECG 12-LEAD 2021-07-30 Jaida Sales 18:33:57 Hospital MAMMO BREAST SCREEN TOMOSYNTHESIS 2021-07-28 Shell Vargas [facility] BILATERAL 14:20:00 [facility] ECG ED PRELIMINARY INTERPRETATION 2021-07-01 Nelson Villagran i [facility] 00:04:28 Hospital TROPONIN T 2021-06-30 Mario Maher 23:09:00 [facility] RESPIRATORY PATHOGEN PANEL WITH 2021-06-30 Mario Maher COVID-19 RT-PCR 21:09:00 [facility] XR CHEST 2 VW 2021-06-30 Mario Maher 20:40:51 [facility] COMPREHENSIVE METABOLIC PANEL 2021-06-30 Mario Maher [facility] 20:06:00 [facility] TROPONIN T 2021-06-30 Mario Maher 20:06:00 [facility] B NATRIURETIC PEPTIDE 2021-06-30 Mario Maher 20:06:00 [facility] CBC WITH PLATELET AND DIFFERENTIAL 2021-06-30 Marques Maher 20:06:00 [facility] ESTIMATED GFR 2021-06-30 Mario Maher 20:06:00 [facility] ECG 12-LEAD 2021-06-30 Mario Maher 19:54:19 [facility] POC URINALYSIS DIPSTICK 2021-06-16 Eddie Farris t 18:20:00 [facility] THINPREP TIS PAP AND HPV MRNA 2021-06-16 Eddie Farris [facility] E6/E7 REFLEX HPV 16,18/45 18:17:00 Hospit al URINALYSIS, COMPLETE, WITH REFLEX 2021-06-16 Eddie Farrisist TO CULTURE 17:55:00 Hospital XR SHOULDER 2+ VW RIGHT 2021-06-02 Roger Ling t 17:52:26 [facility] MRI LUMBAR SPINE WO CONTRAST 2021-05-09 Shell Vargas [facility] 18:44:08 [facility] MRI CERVICAL SPINE WO CONTRAST 2021-05-05 Shell Vargas [facility] 14:11:49 [facility] [address] LUMBAR SPINE WO CONTRAST 2021-05-04 Liborio Herrera [facility] 22:36:[address] THORACIC SPINE WO CONTRAST 2021-05-04 Liborio Herrera [facility] 22:35:58 Hospital TROPONIN T 2021-04-13 Shine Lui [facility] 01:33:00 Hospital XR CHEST 2 VW 2021-04-12 [...] ED PRELIMINARY INTERPRETATION 2021-04-12 Shine Lui 21:47:56 [facility] Plan of Care Planned Activity Planned Date Details Comments Source Future Scheduled 2024-09-11 [facility]:00 malignant neoplasm of cervix (procedure) [code = [id number]] Future Scheduled 2024-09-11 [facility] 00:00:00 malignant neoplasm of cervix (procedure) [code = 563849458] Future Scheduled 2024-09-11 [facility] 00:00:00 malignant neoplasm of cervix (procedure) [code = 325251509] Future Scheduled 2024-09-11 [facility] 00:00:00 malignant neoplasm of cervix (procedure) [code = 974591390] Future Scheduled 2024-09-11 [facility] 00:00:00 malignant neoplasm of cervix (procedure) [code = 519667704] Future Scheduled 2024-09-11 [facility] 00:00:00 malignant neoplasm of cervix (procedure) [code = 853051065] Future Scheduled 2024-09-11 [facility] 00:00:00 malignant neoplasm of cervix (procedure) [code = 080418328] Future Scheduled 2024-09-11 [facility] 00:00:00 malignant neoplasm of cervix (procedure) [code = 341501222] Future Scheduled 2024-09-11 [facility] 00:00:00 malignant neoplasm of cervix (procedure) [code = 015764412] Future Scheduled 2024-09-11 [facility] 00:00:00 malignant neoplasm of cervix (procedure) [code = 424126805] Future Scheduled 2024-09-11 [facility] 00:00:00 malignant neoplasm of cervix (procedure) [code = 958076713] Future Scheduled 2024-09-11 [facility] 00:00:00 malignant neoplasm of cervix (procedure) [code = 300918200] Future Scheduled 2024-09-11 [facility] 00:00:00 malignant neoplasm of cervix (procedure) [code = 738439831] Future Scheduled 2024-09-11 [facility] 00:00:00 malignant neoplasm of cervix (procedure) [code = 480480387] Future Scheduled 2024-09-11 [facility] 00:00:00 malignant neoplasm of cervix (procedure) [code = 785372322] Future Scheduled 2024-09-11 [facility] 00:00:00 malignant neoplasm of cervix (procedure) [code = 753797544] Future Scheduled 2024-09-11 [facility] 00:00:00 malignant neoplasm of cervix (procedure) [code = 234018990] Future Scheduled 2024-09-11 [facility] 00:00:00 malignant neoplasm of cervix (procedure) [code = 486488498] Future Scheduled 2024-09-11 [facility] 00:00:00 malignant neoplasm of cervix (procedure) [code = 819919286] Future Scheduled 2024-09-11 [facility] 00:00:00 malignant neoplasm of cervix (procedure) [code = 488742602] Future Scheduled 2024-09-11 [facility] 00:00:00 malignant neoplasm of cervix (procedure) [code = 325986927] Future Scheduled 2024-09-11 [facility] 00:00:00 malignant neoplasm of cervix (procedure) [code = 074652662] Future Scheduled 2024-09-11 [facility] 00:00:00 malignant neoplasm of cervix (procedure) [code = 242895561] Future Scheduled 2024-09-11 [facility] 00:00:00 malignant neoplasm of cervix (procedure) [code = 327897940] Future Scheduled 2024-09-11 [facility] 00:00:00 malignant neoplasm of cervix (procedure) [code = 982638963] Future Scheduled 2024-09-11 [facility] 00:00:00 malignant neoplasm of cervix (procedure) [code = 511951481] Future Scheduled 2024-09-11 [facility] 00:00:00 malignant neoplasm of cervix (procedure) [code = 324901576] Future Scheduled 2024-09-11 [facility] 00:00:00 malignant neoplasm of cervix (procedure) [code = 673924643] Future Scheduled 2024-09-11 [facility] 00:00:00 malignant neoplasm of cervix (procedure) [code = 935559611] Future Scheduled 2024-09-11 [facility] 00:00:00 malignant neoplasm of cervix (procedure) [code = 148263419] Future Scheduled 2024-09-11 [facility] 00:00:00 malignant neoplasm of cervix (procedure) [code = 404160621] Future Scheduled 2024-09-11 [facility] 00:00:00 malignant neoplasm of cervix (procedure) [code = 233927086] Future Scheduled 2024-09-11 [facility] 00:00:00 malignant neoplasm of cervix (procedure) [code = 352987928] Future Scheduled 2024-09-11 [facility] 00:00:00 malignant neoplasm of cervix (procedure) [code = 151102574] Future Scheduled 2024-09-11 [facility] 00:00:00 malignant neoplasm of cervix (procedure) [code = 562626804] Future Scheduled 2024-09-11 Screening for [facility] Test 00:00:00 malignant neoplasm of cervix (procedure) [code = 348713019] Future Scheduled 2023-02-04 HEPATITIS B VACCINES Met [facility] Test 21:59:28 (1 of 3 - 3-dose series) [code = HEPATITIS B VACCINES (1 of 3 - 3-dose series)] Future Scheduled 2023-02-04 Pneumococcal Vaccine: [facility] Test 21:59:28 Pediatrics (0 to 5 Years) and At-Risk Patients (6 to 64 Years) (1 - PCV) [code = Pneumococcal Vaccine: Pediatrics (0 to 5 Years) and At-Risk Patients (6 to 64 Years) (1 - PCV)] Future Scheduled 2023-02-04 SHINGLES VACCINES (1 Met [facility] Test 21:59:28 of 2) [code = SHINGLES VACCINES (1 of 2)] Future Scheduled 2023-02-04 BREAST CANCER [facility] Test 21:59:28 SCREENING [code = BREAST CANCER SCREENING] Future Scheduled 2023-02-04 COVID-19 VACCINE (3 - [facility] Test 21:59:28 season) [code = COVID-19 VACCINE (3 - season)] Future Scheduled 2023-02-04 INFLUENZA VACCINE (#1) [facility] Test 21:59:28 [code = INFLUENZA VACCINE (#1)] Future Scheduled 2023-02-04 Screening for [facility] Test 21:59:28 malignant neoplasm of cervix (procedure) [code = 785209155] Future Scheduled 2023-02-04 HEPATITIS B VACCINES Met [facility] Test 21:59:28 (1 of 3 - 3-dose series) [code = HEPATITIS B VACCINES (1 of 3 - 3-dose series)] Future Scheduled 2023-02-04 Pneumococcal Vaccine: [facility] Test 21:59:28 Pediatrics (0 to 5 Years) and At-Risk Patients (6 to 64 Years) (1 - PCV) [code = Pneumococcal Vaccine: Pediatrics (0 to 5 Years) and At-Risk Patients (6 to 64 Years) (1 - PCV)] Future Scheduled 2023-02-04 SHINGLES VACCINES (1 Met [facility] Test 21:59:28 of 2) [code = SHINGLES VACCINES (1 of 2)] Future Scheduled 2023-02-04 BREAST CANCER [facility] Test 21:59:28 SCREENING [code = BREAST CANCER SCREENING] Future Scheduled 2023-02-04 COVID-19 VACCINE (3 - [facility] Test 21:59:28 season) [code = COVID-19 VACCINE (3 - season)] Future Scheduled 2023-02-04 INFLUENZA VACCINE (#1) [facility] Test 21:59:28 [code = INFLUENZA VACCINE (#1)] Future Scheduled 2023-02-04 Screening for [facility] Test 21:59:28 malignant neoplasm of cervix (procedure) [code = 149526624] Future Scheduled 2023-01-20 HEPATITIS B VACCINES Met [facility] Test 14:04:46 (1 of 3 - 3-dose series) [code = HEPATITIS B VACCINES (1 of 3 - 3-dose series)] Future Scheduled 2023-01-20 Pneumococcal Vaccine: [facility] Test 14:04:46 Pediatrics (0 to 5 Years) and At-Risk Patients (6 to 64 Years) (1 - PCV) [code = Pneumococcal Vaccine: Pediatrics (0 to 5 Years) and At-Risk Patients (6 to 64 Years) (1 - PCV)] Future Scheduled 2023-01-20 SHINGLES VACCINES (1 Met [facility] Test 14:04:46 of 2) [code = SHINGLES VACCINES (1 of 2)] Future Scheduled 2023-01-20 COVID-19 VACCINE (3 - [facility] Test 14:04:46 Pfizer series) [code = COVID-19 VACCINE (3 - Pfizer series)] Future Scheduled 2023-01-20 BREAST CANCER [facility] Test 14:04:46 SCREENING [code = BREAST CANCER SCREENING] Future Scheduled 2023-01-20 INFLUENZA VACCINE (#1) [facility] Test 14:04:46 [code = INFLUENZA VACCINE (#1)] Future Scheduled 2023-01-20 Screening for [facility] Test 14:04:46 malignant neoplasm of cervix (procedure) [code = 656685909] Future Scheduled 2023-01-10 IMM Influenza Seasonal H [facility] Test 00:00:00 (>/= 19 yrs) [code [...] yrs)] Future Scheduled 2022-12-14 HEPATITIS B VACCINES [facility] Test 14:02:36 (1 of 3 - 3-dose series) [code = HEPATITIS B VACCINES (1 of 3 - 3-dose series)] Future Scheduled 2022-12-14 Pneumococcal Vaccine: [facility] Test 14:02:36 Pediatrics (0 to 5 Years) and At-Risk Patients (6 to 64 Years) (1 - PCV) [code = Pneumococcal Vaccine: Pediatrics (0 to 5 Years) and At-Risk Patients (6 to 64 Years) (1 - PCV)] Future Scheduled 2022-12-14 SHINGLES VACCINES (1 Met [facility] Test 14:02:36 of 2) [code = SHINGLES VACCINES (1 of 2)] Future Scheduled 2022-12-14 COVID-19 VACCINE (3 - [facility] Test 14:02:36 Pfizer series) [code = COVID-19 VACCINE (3 - Pfizer series)] Future Scheduled 2022-12-14 BREAST CANCER [facility] Test 14:02:36 SCREENING [code = BREAST CANCER SCREENING] Future Scheduled 2022-12-14 INFLUENZA VACCINE (#1) M [facility] Test 14:02:36 [code = INFLUENZA VACCINE (#1)] Future Scheduled 2022-12-14 Screening for [facility] Test 14:02:36 malignant neoplasm of cervix (procedure) [code = 614006086] Future Scheduled 2022-12-14 HEPATITIS B VACCINES Met [facility] Test 14:02:36 (1 of 3 - 3-dose series) [code = HEPATITIS B VACCINES (1 of 3 - 3-dose series)] Future Scheduled 2022-12-14 Pneumococcal Vaccine: [facility] Test 14:02:36 Pediatrics (0 to 5 Years) and At-Risk Patients (6 to 64 Years) (1 - PCV) [code = Pneumococcal Vaccine: Pediatrics (0 to 5 Years) and At-Risk Patients (6 to 64 Years) (1 - PCV)] Future Scheduled 2022-12-14 SHINGLES VACCINES (1 Met [facility] Test 14:02:36 of 2) [code = SHINGLES VACCINES (1 of 2)] Future Scheduled 2022-12-14 COVID-19 VACCINE (3 - [facility] Test 14:02:36 Pfizer series) [code = COVID-19 VACCINE (3 - Pfizer series)] Future Scheduled 2022-12-14 BREAST CANCER [facility] Test 14:02:36 SCREENING [code = BREAST CANCER SCREENING] Future Scheduled 2022-12-14 INFLUENZA VACCINE (#1) M [facility] Test 14:02:36 [code = INFLUENZA VACCINE (#1)] Future Scheduled 2022-12-14 Screening for [facility] Test 14:02:36 malignant neoplasm of cervix (procedure) [code = 275429202] Future Scheduled 2022-12-11 IMM Influenza Seasonal H [...] Future Scheduled 2022-11-23 HEPATITIS B VACCINES Met [facility] Test 15:50:17 (1 of 3 - 3-dose series) [code = HEPATITIS B VACCINES (1 of 3 - 3-dose series)] Future Scheduled 2022-11-23 Pneumococcal Vaccine: [facility] Test 15:50:17 Pediatrics (0 to 5 Years) and At-Risk Patients (6 to 64 Years) (1 - PCV) [code = Pneumococcal Vaccine: Pediatrics (0 to 5 Years) and At-Risk Patients (6 to 64 Years) (1 - PCV)] Future Scheduled 2022-11-23 SHINGLES VACCINES (1 Met [facility] Test 15:50:17 of 2) [code = SHINGLES VACCINES (1 of 2)] Future Scheduled 2022-11-23 COVID-19 VACCINE (3 - [facility] Test 15:50:17 Pfizer series) [code = COVID-19 VACCINE (3 - Pfizer series)] Future Scheduled 2022-11-23 BREAST CANCER [facility] Test 15:50:17 SCREENING [code = BREAST CANCER SCREENING] Future Scheduled 2022-11-23 ZZZ INFLUENZA VACCINE [facility] Test 15:50:17 [code = ZZZ INFLUENZA VACCINE] Future Scheduled 2022-11-23 Screening for [facility] Test 15:50:17 malignant neoplasm of cervix (procedure) [code = 367932524] Future Scheduled 2022-11-16 HEPATITIS B VACCINES Met [facility] Test 15:11:20 (1 of 3 - 3-dose series) [code = HEPATITIS B VACCINES (1 of 3 - 3-dose series)] Future Scheduled 2022-11-16 Pneumococcal Vaccine: [facility] Test 15:11:20 Pediatrics (0 to 5 Years) and At-Risk Patients (6 to 64 Years) (1 - PCV) [code = Pneumococcal Vaccine: Pediatrics (0 to 5 Years) and At-Risk Patients (6 to 64 Years) (1 - PCV)] Future Scheduled 2022-11-16 SHINGLES VACCINES (1 Met [facility] Test 15:11:20 of 2) [code = SHINGLES VACCINES (1 of 2)] Future Scheduled 2022-11-16 COVID-19 VACCINE (3 - [facility] Test 15:11:20 Pfizer series) [code = COVID-19 VACCINE (3 - Pfizer series)] Future Scheduled 2022-11-16 BREAST CANCER [facility] Test 15:11:20 SCREENING [code = BREAST CANCER SCREENING] Future Scheduled 2022-11-16 INFLUENZA VACCINE Method [facility] Test 15:11:20 [code = INFLUENZA VACCINE] Future Scheduled 2022-11-16 Screening for [facility] Test 15:11:20 malignant neoplasm of cervix (procedure) [code = 104684578] Future Scheduled 2022-10-02 HEPATITIS B VACCINES Met [facility] Test 12:32:01 (1 of 3 - 3-dose series) [code = HEPATITIS B VACCINES (1 of 3 - 3-dose series)] Future Scheduled 2022-10-02 Pneumococcal Vaccine: [facility] Test 12:32:01 Pediatrics (0 to 5 Years) and At-Risk Patients (6 to 64 Years) (1 - PCV) [code = Pneumococcal Vaccine: Pediatrics (0 to 5 Years) and At-Risk Patients (6 to 64 Years) (1 - PCV)] Future Scheduled 2022-10-02 SHINGLES VACCINES (1 Met [facility] Test 12:32:01 of 2) [code = SHINGLES VACCINES (1 of 2)] Future Scheduled 2022-10-02 COVID-19 VACCINE (3 - [facility] Test 12:32:01 Pfizer series) [code = COVID-19 VACCINE (3 - Pfizer series)] Future Scheduled 2022-10-02 BREAST CANCER [facility] Test 12:32:01 SCREENING [code = BREAST CANCER SCREENING] Future Scheduled 2022-10-02 INFLUENZA VACCINE Method [facility] Test 12:32:01 [code = INFLUENZA VACCINE] Future Scheduled 2022-10-02 Screening for [facility] Test 12:32:01 malignant neoplasm of cervix (procedure) [code = 593028657] Future Scheduled 2022-09-11 HEPATITIS B VACCINES Met [facility] Test 08:52:14 (1 of 3 - 3-dose series) [code = HEPATITIS B VACCINES (1 of 3 - 3-dose series)] Future Scheduled 2022-09-11 Pneumococcal Vaccine: [facility] Test 08:52:14 Pediatrics (0 to 5 Years) and At-Risk Patients (6 to 64 Years) (1 - PCV) [code = Pneumococcal Vaccine: Pediatrics (0 to 5 Years) and At-Risk Patients (6 to 64 Years) (1 - PCV)] Future Scheduled 2022-09-11 COLONOSCOPY SCREENING [facility] Test 08:52:14 [code = COLONOSCOPY SCREENING] Future Scheduled 2022-09-11 SHINGLES VACCINES (1 Met [facility] Test 08:52:14 of 2) [code = SHINGLES VACCINES (1 of 2)] Future Scheduled 2022-09-11 COVID-19 VACCINE (3 - [facility] Test 08:52:14 Booster for Pfizer series) [code = COVID-19 VACCINE (3 - Booster for Pfizer series)] Future Scheduled 2022-09-11 BREAST CANCER [facility] Test 08:52:14 SCREENING [code = BREAST CANCER SCREENING] Future Scheduled 2022-09-11 INFLUENZA VACCINE Method [facility] Test 08:52:14 [code = INFLUENZA VACCINE] Future Scheduled 2022-09-11 Screening for [facility] Test 08:52:14 malignant neoplasm of cervix (procedure) [code = 293578803] Future Scheduled 2022-08-06 HEPATITIS B VACCINES Met [facility] Test 21:07:15 (1 of 3 - 3-dose series) [code = HEPATITIS B VACCINES (1 of 3 - 3-dose series)] Future Scheduled 2022-08-06 Pneumococcal Vaccine: [facility] Test 21:07:15 Pediatrics (0 to 5 Years) and At-Risk Patients (6 to 64 Years) (1 - PCV) [code = Pneumococcal Vaccine: Pediatrics (0 to 5 Years) and At-Risk Patients (6 to 64 Years) (1 - PCV)] Future Scheduled 2022-08-06 COLONOSCOPY SCREENING [facility] Test 21:07:15 [code = COLONOSCOPY SCREENING] Future Scheduled 2022-08-06 SHINGLES VACCINES (1 Met [facility] Test 21:07:15 of 2) [code = SHINGLES VACCINES (1 of 2)] Future Scheduled 2022-08-06 COVID-19 VACCINE (3 - [facility] Test 21:07:15 Booster for Pfizer series) [code = COVID-19 VACCINE (3 - Booster for Pfizer series)] Future Scheduled 2022-08-06 BREAST CANCER [facility] Test 21:07:15 SCREENING [code = BREAST CANCER SCREENING] Future Scheduled 2022-08-06 INFLUENZA VACCINE [facility] Test 21:07:15 [code = INFLUENZA VACCINE] Future Scheduled 2022-08-06 Screening for [facility] Test 21:07:15 malignant neoplasm of cervix (procedure) [code = 516322043] Future Scheduled 2022-06-22 HEPATITIS B VACCINES Met [facility] Test 14:13:36 (1 of 3 - 3-dose series) [code = HEPATITIS B VACCINES (1 of 3 - 3-dose series)] Future Scheduled 2022-06-22 Pneumococcal Vaccine: [facility] Test 14:13:36 Pediatrics (0 to 5 Years) and At-Risk Patients (6 to 64 Years) (1 - PCV) [code = Pneumococcal Vaccine: Pediatrics (0 to 5 Years) and At-Risk Patients (6 to 64 Years) (1 - PCV)] Future Scheduled 2022-06-22 COLONOSCOPY SCREENING [facility] Test 14:13:36 [code = COLONOSCOPY SCREENING] Future Scheduled 2022-06-22 SHINGLES VACCINES (1 Met [facility] Test 14:13:36 of 2) [code = SHINGLES VACCINES (1 of 2)] Future Scheduled 2022-06-22 COVID-19 VACCINE (3 - [facility] Test 14:13:36 Booster for Pfizer series) [code = COVID-19 VACCINE (3 - Booster for Pfizer series)] Future Scheduled 2022-06-22 INFLUENZA VACCINE [facility] Test 14:13:36 [code = INFLUENZA VACCINE] Future Scheduled 2022-06-22 BREAST CANCER [facility] Test 14:13:36 SCREENING [code = BREAST CANCER SCREENING] Future Scheduled 2022-06-22 Screening for [facility] Test 14:13:36 malignant neoplasm of cervix (procedure) [code = 444955333] Future Scheduled 2022 HEPATITIS B VACCINES Met [facility] Test 13:45:15 (1 of 3 - 3-dose series) [code = HEPATITIS B VACCINES (1 of 3 - 3-dose series)] Future Scheduled 2022 Pneumococcal Vaccine: [facility] Test 13:45:15 Pediatrics (0 to 5 Years) and At-Risk Patients (6 to 64 Years) (1 - PCV) [code = Pneumococcal Vaccine: Pediatrics (0 to 5 Years) and At-Risk Patients (6 to 64 Years) (1 - PCV)] Future Scheduled 2022 COLONOSCOPY SCREENING [facility] Test 13:45:15 [code = COLONOSCOPY SCREENING] Future Scheduled 2022 SHINGLES VACCINES (1 Met [facility] Test 13:45:15 of 2) [code = SHINGLES VACCINES (1 of 2)] Future Scheduled 2022 COVID-19 VACCINE (3 - [facility] Test 13:45:15 Booster for Pfizer series) [code = COVID-19 VACCINE (3 - Booster for Pfizer series)] Future Scheduled 2022 INFLUENZA VACCINE Method [facility] Test 13:45:15 [code = INFLUENZA VACCINE] Future Scheduled 2022 BREAST CANCER [facility] Test 13:45:15 SCREENING [code = BREAST CANCER SCREENING] Future Scheduled 2022 Screening for [facility] Test 13:45:15 malignant neoplasm of cervix (procedure) [code = 151940759] Future Scheduled 2022-04-17 HEPATITIS B VACCINES Met [facility] Test 10:21:02 (1 of 3 - 3-dose series) [code = HEPATITIS B VACCINES (1 of 3 - 3-dose series)] Future Scheduled 2022-04-17 Pneumococcal Vaccine: [facility] Test 10:21:02 Pediatrics (0 to 5 Years) and At-Risk Patients (6 to 64 Years) (1 - PCV) [code = Pneumococcal Vaccine: Pediatrics (0 to 5 Years) and At-Risk Patients (6 to 64 Years) (1 - PCV)] Future Scheduled 2022-04-17 COLONOSCOPY SCREENING [facility] Test 10:21:02 [code = COLONOSCOPY SCREENING] Future Scheduled 2022-04-17 SHINGLES VACCINES (1 Met [facility] Test 10:21:02 of 2) [code = SHINGLES VACCINES (1 of 2)] Future Scheduled 2022-04-17 COVID-19 VACCINE (3 - [facility] Test 10:21:02 Booster for Pfizer series) [code = COVID-19 VACCINE (3 - Booster for Pfizer series)] Future Scheduled 2022-04-17 INFLUENZA VACCINE Method [facility] Test 10:21:02 [code = INFLUENZA VACCINE] Future Scheduled 2022-04-17 BREAST CANCER [facility] Test 10:21:02 SCREENING [code = BREAST CANCER SCREENING] Future Scheduled 2022-04-17 Screening for [facility] Test 10:21:02 malignant neoplasm of cervix (procedure) [code = 432082924] Future Scheduled 2022-04-15 HEPATITIS B VACCINES Met [facility] Test 14:24:02 (1 of 3 - 3-dose series) [code = HEPATITIS B VACCINES (1 of 3 - 3-dose series)] Future Scheduled 2022-04-15 Pneumococcal Vaccine: [facility] Test 14:24:02 Pediatrics (0 to 5 Years) and At-Risk Patients (6 to 64 Years) (1 - PCV) [code = Pneumococcal Vaccine: Pediatrics (0 to 5 Years) and At-Risk Patients (6 to 64 Years) (1 - PCV)] Future Scheduled 2022-04-15 COLONOSCOPY SCREENING [facility] Test 14:24:02 [code = COLONOSCOPY SCREENING] Future Scheduled 2022-04-15 SHINGLES VACCINES (1 Met [facility] Test 14:24:02 of 2) [code = SHINGLES VACCINES (1 of 2)] Future Scheduled 2022-04-15 COVID-19 VACCINE (3 - [facility] Test 14:24:02 Booster for Pfizer series) [code = COVID-19 VACCINE (3 - Booster for Pfizer series)] Future Scheduled 2022-04-15 INFLUENZA VACCINE Method [facility] Test 14:24:02 [code = INFLUENZA VACCINE] Future Scheduled 2022-04-15 BREAST CANCER [facility] Test 14:24:02 SCREENING [code = BREAST CANCER SCREENING] Future Scheduled 2022-04-15 Screening for [facility] Test 14:24:02 malignant neoplasm of cervix (procedure) [code = 808520799] Future Scheduled 2022-04-03 HEPATITIS B VACCINES Met [facility] Test 09:31:00 (1 of 3 - 3-dose series) [code = HEPATITIS B VACCINES (1 of 3 - 3-dose series)] Future Scheduled 2022-04-03 Pneumococcal Vaccine: [facility] Test 09:31:00 Pediatrics (0 to 5 Years) and At-Risk Patients (6 to 64 Years) (1 - PCV) [code = Pneumococcal Vaccine: Pediatrics (0 to 5 Years) and At-Risk Patients (6 to 64 Years) (1 - PCV)] Future Scheduled 2022-04-03 COLONOSCOPY SCREENING [facility] Test 09:31:00 [code = COLONOSCOPY SCREENING] Future Scheduled 2022-04-03 SHINGLES VACCINES (1 Met [facility] Test 09:31:00 of 2) [code = SHINGLES VACCINES (1 of 2)] Future Scheduled 2022-04-03 COVID-19 VACCINE (3 - [facility] Test 09:31:00 Booster for Pfizer series) [code = COVID-19 VACCINE (3 - Booster for Pfizer series)] Future Scheduled 2022-04-03 INFLUENZA VACCINE Method [facility] Test 09:31:00 [code = INFLUENZA VACCINE] Future Scheduled 2022-04-03 BREAST CANCER [facility] Test 09:31:00 SCREENING [code = BREAST CANCER SCREENING] Future Scheduled 2022-04-03 Screening for [facility] Test 09:31:00 malignant neoplasm of cervix (procedure) [code = 687845960] Future Scheduled 2022-03-05 HEPATITIS B VACCINES Met [facility] Test 00:08:56 (1 of 3 - 3-dose series) [code = HEPATITIS B VACCINES (1 of 3 - 3-dose series)] Future Scheduled 2022-03-05 Pneumococcal Vaccine: [facility] Test 00:08:56 Pediatrics (0 to 5 Years) and At-Risk Patients (6 to 64 Years) (1 - PCV) [code = Pneumococcal Vaccine: Pediatrics (0 to 5 Years) and At-Risk Patients (6 to 64 Years) (1 - PCV)] Future Scheduled 2022-03-05 COLONOSCOPY SCREENING [facility] Test 00:08:56 [code = COLONOSCOPY SCREENING] Future Scheduled 2022-03-05 SHINGLES VACCINES (1 Met [facility] Test 00:08:56 of 2) [code = SHINGLES VACCINES (1 of 2)] Future Scheduled 2022-03-05 COVID-19 VACCINE (3 - [facility] Test 00:08:56 Booster for Pfizer series) [code = COVID-19 VACCINE (3 - Booster for Pfizer series)] Future Scheduled 2022-03-05 INFLUENZA VACCINE Method [facility] Test 00:08:56 [code = INFLUENZA VACCINE] Future Scheduled 2022-03-05 BREAST CANCER [facility] Test 00:08:56 SCREENING [code = BREAST CANCER SCREENING] Future Scheduled 2022-03-05 Screening for [facility] Test 00:08:56 malignant neoplasm of cervix (procedure) [code = 871492920] Future Scheduled 2022-03-05 HEPATITIS B VACCINES Met [facility] Test 00:08:56 (1 of 3 - 3-dose series) [code = HEPATITIS B VACCINES (1 of 3 - 3-dose series)] Future Scheduled 2022-03-05 Pneumococcal Vaccine: [facility] Test 00:08:56 Pediatrics (0 to 5 Years) and At-Risk Patients (6 to 64 Years) (1 - PCV) [code = Pneumococcal Vaccine: Pediatrics (0 to 5 Years) and At-Risk Patients (6 to 64 Years) (1 - PCV)] Future Scheduled 2022-03-05 COLONOSCOPY SCREENING [facility] Test 00:08:56 [code = COLONOSCOPY SCREENING] Future Scheduled 2022-03-05 SHINGLES VACCINES (1 Met [facility] Test 00:08:56 of 2) [code = SHINGLES VACCINES (1 of 2)] Future Scheduled 2022-03-05 COVID-19 VACCINE (3 - [facility] Test 00:08:56 Booster for Pfizer series) [code = COVID-19 VACCINE (3 - Booster for Pfizer series)] Future Scheduled 2022-03-05 INFLUENZA VACCINE [facility] Test 00:08:56 [code = INFLUENZA VACCINE] Future Scheduled 2022-03-05 BREAST CANCER [facility] Test 00:08:56 SCREENING [code = BREAST CANCER SCREENING] Future Scheduled 2022-03-05 Screening for [facility] Test 00:08:56 malignant neoplasm of cervix (procedure) [code = 454167549] Future Scheduled 2022-02-22 HEPATITIS B VACCINES Met [facility] Test 22:17:15 (1 of 3 - 3-dose series) [code = HEPATITIS B VACCINES (1 of 3 - 3-dose series)] Future Scheduled 2022-02-22 Pneumococcal Vaccine: [facility] Test 22:17:15 Pediatrics (0 to 5 Years) and At-Risk Patients (6 to 64 Years) (1 - PCV) [code = Pneumococcal Vaccine: Pediatrics (0 to 5 Years) and At-Risk Patients (6 to 64 Years) (1 - PCV)] Future Scheduled 2022-02-22 COLONOSCOPY SCREENING [facility] Test 22:17:15 [code = COLONOSCOPY SCREENING] Future Scheduled 2022-02-22 SHINGLES VACCINES (1 Met [facility] Test 22:17:15 of 2) [code = SHINGLES VACCINES (1 of 2)] Future Scheduled 2022-02-22 COVID-19 VACCINE (3 - [facility] Test 22:17:15 Booster for Pfizer series) [code = COVID-19 VACCINE (3 - Booster for Pfizer series)] Future Scheduled 2022-02-22 [facility]ACCINE [facility] 22:17:15 [code = INFLUENZA VACCINE] Future Scheduled 2022-02-22 BREAST CANCER [facility] Test 22:17:15 SCREENING [code = BREAST CANCER SCREENING] Future Scheduled 2022-02-22 Screening for [facility] Test 22:17:15 malignant neoplasm of cervix (procedure) [code = 946514805] Future Scheduled 2022-01-10 IMM Influenza Seasonal H [...] malignant neoplasm of colon (procedure) [code = 572995841] Future Scheduled 2019 [facility] Test 00:[facility]:00 malignant neoplasm of colon (procedure) [code = 753826012] Future Scheduled 2019 Screening for [facility] Test 00:00:00 malignant neoplasm of colon (procedure) [code = 066489350] Future Scheduled 2019 Screening [facility] Test 00:00:00 malignant neoplasm of colon (procedure) [code = 358533151] Future Scheduled 2019 Scre[facility] Test 00:00:00 malignant neoplasm of colon (procedure) [code = 188354974] Future Scheduled 2019 Screening for [facility] Test 00:00:00 malignant neoplasm of colon (procedure) [code = 507877100] Future Scheduled 2019 Screening for [facility] Test 00:00:00 malignant neoplasm of colon (procedure) [code = 583991559] Future Scheduled 2019 Screening for [facility] Test 00:00:00 malignant neoplasm of colon (procedure) [code = 458654843] Future Scheduled 2019 Screening [facility] Test 00:00:00 malignant neoplasm of colon (procedure) [code = 665650821] Future Scheduled 2019 Screening [facility] Test 00:00:00 malignant neoplasm of colon (procedure) [code = 466191452] Future Scheduled 2019 Screening [facility] Test 00:00:00 malignant neoplasm of colon (procedure) [code = 239774550] Future Scheduled 2019 Screening [facility] Test 00:00:00 malignant neoplasm of colon (procedure) [code = 519210178] Future Scheduled 2019 Screening [facility] Test 00:00:00 malignant neoplasm of colon (procedure) [code = 083675712] Future Scheduled 2019 Scre[facility] Test 00:00:00 malignant neoplasm of colon (procedure) [code = 184813073] Future Scheduled 2019 Scre[facility] Test 00:00:00 malignant neoplasm of colon (procedure) [code = 081352515] Future Scheduled 2019 Screening [facility] Test 00:00:00 malignant neoplasm of colon (procedure) [code = 980981305] Future Scheduled 2019 Screening [facility] Test 00:00:00 malignant neoplasm of colon (procedure) [code = 194806471] Future Scheduled 2019 Scre[facility] Test 00:00:00 malignant neoplasm of colon (procedure) [code = 313577368] Future Scheduled 1975 Imm Pneumococcal 0-64 Maria [...] Type Clinicians Facility Department ID 2022-11-16 Outpatient [email or web address].nyarp [facility] [id number] [facility] 05:03:14 [id number] [facility] 2022-04-23 Outpatient [facility] [id number] [place] 15:11:46 [id number] [facility] 2023-06-15 2023-06-15 Outpatient ELLIE BAXTER [facility] [id number] [place] 14:00:00 14:00:00 [facility] 2023-02-06 2023-02-06 Outpatient GC_[id number] PRIV PRIV [id number] [facility] 00:00:00 00:00:00 diyala_S [id number] [facility] 2022-12-25 2022-12-25 Outpatient SFA SFA Vadim 16:12:57 16:12:57 [id number] [facility] [place] 2022-12-19 2022-12-19 Outpatient SFA SFA Vadim 10:18:19 10:18:19 [id number] F [place] 2022-12-17 2022-12-17 Outpatient SFA SFA Vadim 10:01:16 10:01:16 [id number] F [place] 2022-11-17 2022-11-17 Outpatient SFA SFA Vadim 09:30:40 09:30:40 [id number] F [place] 2022-11-06 2022-11-06 Outpatient SFA SFA Vadim 08:17:59 08:17:59 [id number] F [place] 2022-09-14 2022-09-14 Outpatient SFA SFA Vadim 14:26:13 14:26:13 [id number] F [place] 2022-09-10 2022-09-10 Toni Vernon.2.840.1 [id number] 7561 Methodi 00:00:00 00:00:00 Only [place] 00966.1.[address] Kelley 3.430.2.7 Hospit a .3.638720 l .8 2022-09-10 2022-09-10 Telephone Jean, 1.2.840.1 [id number] 2099 [id number] Methodi 00:00:00 00:00:[address] 3.430.2.7 Hospit a .3.778945 l .8 2022-09-10 2022-09-10 Orders Fabby, 1.2.840.1 [id number] 3498 Methodi 00:00:00 00:00:00 Only [place] 81637.1.[address] Kelley 3.430.2.7 Hospit a .3.092274 l .8 2022-09-10 2022-09-10 Telephone Jean, 1.2.840.1 [id number] 2099 [id number] Methodi 00:00:00 00:00:[address] 3.430.2.7 Hospit a .3.203490 l .8 2022-05-15 2022-05-15 Outpatient KELLI ALDANA [id number] Kelli 00:00:00 00:00:00 SHINE ren 2022-02-19 2022-02-19 Emergency Vasquez, 1.2.840.1 [id number] Methodi 18:09:00 20:16:[address] Cristóbal [address] Bennett 3.430.2.7 Hosp shai .3.504939 l .8 2022-02-19 2022-02-19 Emergency Vasquez, 1.2.840.1 [id number] 2099 [id number] Methodi 18:09:00 20:16:[address] Bennett 3.430.2.7 Hosp shai .3.369344 l .8 2022-02-12 2022-02-12 Orders Lopez, 1.2.840.1 [id number] 15768 43689 Methodi 00:00:00 00:00:00 Only Maureen 09639.1.[address] 3.430.2.7 Hospit a .3.488261 l .8 2022-02-11 2022-02-11 Orders Lopez, 1.2.840.1 [id number] 17229 46005 Methodi 00:00:00 00:00:00 Only Maureen 44459.1.[address] 3.430.2.7 Hospit a .3.468899 l .8 2022-02-11 2022-02-11 Telephone Prasanth, 1.2.840.1 [id number] 2099 [id number] Methodi 00:00:00 00:00:[address] 3.430.2.7 Hospit a .3.379054 l .8 2022-02-09 2022-02-09 Outpatient COH COH PDPFCCG ETQ COH 00:00:00 00:00:00 [id number] 2022-02-09 2022-02-09 Telephone Prasanth, 1.2.840.1 [id number] 2099 [id number] Methodi 00:00:00 00:00:[address] 3.430.2.7 Hospit a .3.411192 l .8 2022-02-05 2022-02-05 Lab Prasanth, 1.2.840.1 [id number] 173189 8257 Methodi 10:50:00 10:55:[address] 3.430.2.7 Hospit a .3.084963 l .8 2022-02-05 2022-02-05 Office Prasanth, 1.2.840.1 [id number] 168459 3314 Methodi 09:40:00 10:31:06 Visit Eddie Ballesteros50.1.[address] 3.430.2.7 Hospit a .3.976684 l .8 2022-02-05 2022-02-05 Refill Alicia, 1.2.840.1 [id number] 7385 Methodi 00:00:00 00:00:[address] Doe 3.430.2.7 Hospi ta .3.700790 l .8 2022-02-05 2022-02-05 Travel 1.2.840.1 1.2.145.080 5930 706835 Methodi 00:00:00 00:00:[address] 3.430.2.7 0.2.7.3.698 Ho spita .3.232069 084.8 l .8 2022-02-03 2022-02-03 Telephone Prasanth, 1.2.840.1 [id number] 2099 [id number] Methodi 00:00:00 00:00:00 [address]al 99[address].1.[address] 3.430.2.7 Hospit a .3.065471 l .8 2022-01-01 2022-01-01 Telephone Alessio, 1.2.840.1 [id number] 2099 244029 Methodi 00:00:00 00:00:[address] 3.430.2.7 Hospit a .3.135792 l .8 2021-12-26 2021-12-26 Surgery [facility], 1.2.840.1 [id number] 1469 Methodi 11:00:00 11:45:[address] Hasan 3.430.2.7 Hospit a .3.959632 l .8 2021-12-26 2021-12-26 [facility], 1.2.840.1 [id number] 18528 49803 Methodi 10:21:00 11:28:00 Encounter Proctor 36963.1.[address] Hasan 3.430.2.7 Hospit a .3.574546 l .8 2021-12-26 2021-12-26 Anesthesia Hans Casper 1.2.840.1 [id number] Methodi 10:44:00 11:06:00 Event Vitaliy 16012.1.[address] 3.430.2.7 Hospit a .3.701482 l .8 2021-12-26 2021-12-26 Travel 1.2.840.1 1.2.027.519 7564 200877 Methodi 00:00:00 00:00:[address] 3.430.2.7 0.2.7.3.698 Ho spita .3.826626 084.8 l .8 2021-12-24 2021-12-24 Lab Small, 1.2.840.1 [id number] 560155 4904 Methodi 08:00:00 08:15:[address] Hasan 3.430.2.7 Hospit a .3.683753 l .8 2021-12-24 2021-12-24 Orders Tran, 1.2.840.1 [id number] 726563 2227 Methodi 00:00:00 00:00:00 Only Kortney 03059.1.[address] 3.430.2.7 Hospit a .3.653448 l .8 2021-12-18 2021-12-18 Office Prasanth, 1.2.840.1 [id number] 051553 3209 Methodi 11:00:00 13:02:01 Visit Eddie Franco 85644.1.[address] 3.430.2.7 Hospit a .3.689990 l .8 2021-12-18 2021-12-18 Travel 1.2.840.1 1.2.000.014 6454 476648 Methodi 00:00:00 00:00:[address] 3.430.2.7 0.2.7.3.698 Ho spita .3.418579 084.8 l .8 2021-12-16 2021-12-16 Office Doug Estevez [facility] Encounter/ [facility] 00:00:00 00:00:00 Visit Bijan Carson [id number] [facility] [id number] [facility] 2021-12-09 2021-12-09 Refill Leggett, 1.2.840.1 [id number] 2099 [id number] Methodi 00:00:00 00:00:[address] 3.430.2.7 Hospit a .3.932378 l .8 2021-11-28 2021-11-28 Office Carly, 1.2.840.1 [id number] 896 [id number] Methodi 10:15:00 10:52:48 [place] 11841.1.[address] 3.430.2.7 Hospit a .3.898472 l .8 2021-11-28 2021-11-28 Travel 1.2.840.1 1.2.569.965 2171 616026 Methodi 00:00:00 00:00:[address] 3.430.2.7 0.2.7.3.698 Ho spita .3.750447 084.8 l .8 2021-11-17 2021-11-17 Office Fabby, 1.2.840.1 [id number] 642292 0654 Methodi 09:00:00 09:30:00 Visit [place] 06231.1.[address] Kelley 3.430.2.7 Hospit a .3.894920 l .8 2021-11-17 2021-11-17 Travel 1.2.840.1 1.2.773.841 6120 149454 Methodi 00:00:00 00:00:[address] 3.430.2.7 0.2.7.3.698 Ho spita .3.323497 084.8 l .8 2021-11-14 2021-11-14 Orders Istre, 1.2.840.1 [id number] 9452 Methodi 00:00:00 00:00:00 Only Shell 69251.1.[address] [place] 3.430.2.7 Hospi ta .3.279317 l .8 2021-11-11 2021-11-11 Telemedici Istre, 1.2.840.1 [id number] 074 8114394 Methodi 10:00:00 10:40:34 ne Shell 98422.1.[address] Doe 3.430.2.7 Hospi ta .3.778842 l .8 2021-11-07 2021-11-07 Emergency Noel, 1.2.840.1 [id number] 2100 866327 Methodi 14:04:00 15:46:[address] Kirsten 3.430.2.7 Hospit a .3.462373 l .8 2021-11-07 2021-11-07 Travel 1.2.840.1 1.2.264.136 7819 825697 Methodi 00:00:00 00:00:[address] 3.430.2.7 0.2.7.3.698 Ho spita .3.811555 084.8 l .8 2021-11-03 2021-11-03 Lab Small, 1.2.840.1 [id number] 2944 Methodi 08:25:00 08:30:[address] Quynh 3.430.2.7 Hospit a .3.491250 l .8 2021-11-03 2021-11-03 Outpatient [facility] [id number] 623 [place] 00:00:00 00:00:00 PROCTOR [address] 2021-11-03 2021-11-03 Telephone Mccallum, 1.2.840.1 [id number] 2099 [id number] Methodi 00:00:00 00:00:[address] 3.430.2.7 Hospit a .3.971309 l .8 2021-11-03 2021-11-03 Travel 1.2.840.1 1.2.787.662 2987 444789 Methodi 00:00:00 00:00:[address] 3.430.2.7 0.2.7.3.698 Ho spita .3.818057 084.8 l .8 2021-10-29 2021-10-29 Documentat Binta, 1.2.840.1 [id number] 2 [id number] Methodi 00:00:00 00:00:00 ion Amanda 57601.1.[address] 3.430.2.7 Hospit a .3.306960 l .8 2021-10-29 2021-10-29 Prep for Binta, 1.2.840.1 [id number] 082 [id number] Methodi 00:00:00 00:00:00 Surgery Amanda 12673.1.[address] 3.430.2.7 Hospit a .3.829557 l .8 2021-10-29 2021-10-29 Telephone Binta, 1.2.840.1 [id number] 21 [id number] Methodi 00:00:00 00:00:[address] 3.430.2.7 Hospit a .3.732805 l .8 2021-10-29 2021-10-29 Travel 1.2.840.1 1.2.177.318 6729 431663 Methodi 00:00:00 00:00:[address] 3.430.2.7 0.2.7.3.698 Ho spita .3.951161 084.8 l .8 2021-10-22 2021-10-22 Office Kem, 1.2.840.1 [id number] 830 [id number] Methodi 09:40:00 10:17:00 Visit Rebecca Nguyen 87791.1.[address] 3.430.2.7 Hospit a .3.247570 l .8 2021-10-22 2021-10-22 Travel 1.2.840.1 1.2.336.939 3936 377628 Methodi 00:00:00 00:00:[address] 3.430.2.7 0.2.7.3.698 Ho spita .3.318189 084.8 l .8 2021-10-14 2021-10-15 Emergency Adry, 1.2.840.1 [id number] 162 [id number] Methodi 21:57:00 00:06:00 José H 74459.1.[address] 3.430.2.7 Hospit a .3.958701 l .8 2021-10-12 2021-10-12 Emergency Courtney, 1.2.840.1 [id number] 2100 127296 Methodi 10:13:00 14:37:00 Trung H[place] 01138.1.[address] 3.430.2.7 Hospit a .3.808570 l .8 2021-10-09 2021-10-09 Telephone Tita Juan Carlos 1.2.840.1 [id number] Methodi 00:00:00 00:00:[address] 3.430.2.7 Hospit a .3.140242 l .8 2021-10-09 2021-10-09 Telephone Juan Carlos Rivers 1.2.840.1 [id number] Methodi 00:00:00 00:00:[address] 3.430.2.7 Hospit a .3.741455 l .8 2021-10-09 2021-10-09 Orders Istre, 1.2.840.1 [id number] 139458 8446 Methodi 00:00:00 00:00:00 Only Shell 86796.1.[address] Doe 3.430.2.7 Hospi ta .3.088892 l .8 2021-10-02 2021-10-02 Telephone Lazarus, 1.2.840.1 [id number] 267 [id number] Methodi 00:00:00 00:00:[address] 3.430.2.7 Hospit a .3.571994 l .8 2021-09-30 2021-09-30 Surgery Kem, 1.2.840.1 [id number] 529 1531640 Methodi 07:15:00 09:02:00 Rebecca Nguyen 77757.1.[address] 3.430.2.7 Hospit a .3.385922 l .8 2021-09-30 2021-09-30 [facility] Kem 1.2.840.1 [id number] 21 [id number] Methodi 06:02:00 08:50:00 Encounter Rebecca Nguyen 26866.1.[address] 3.430.2.7 Hospit a .3.671352 l .8 2021-09-30 2021-09-30 Anesthesia TwilaTomas W. 1.2.840.1 1045 61655 [id number] Methodi 07:05:00 08:04:00 Event Sunita Marie 65663.1.[address] 3.430.2.7 Hospit a .3.418735 l .8 2021-09-26 2021-09-26 [facility] 2100 869777 [place] 00:00:00 00:00:00 REBECCAMICHAEL Baumann Method i st 2021-09-19 2021-09-19 Travel 1.2.840.1 1.2.428.768 7029 048466 Methodi 00:00:00 00:00:[address] 3.430.2.7 0.2.7.3.698 Ho spita .3.560164 084.8 l .8 2021-09-19 2021-09-19 Orders Marrero, 1.2.840.1 [id number] 2099 410344 Methodi 00:00:00 00:00:00 Only Sharon 80723.1.[address] 3.430.2.7 Hospit a .3.676981 l .8 2021-09-19 2021-09-19 Orders Tavares, 1.2.840.1 [id number] 628787 2525 Methodi 00:00:00 00:00:00 Only Peggy 19375.1.[address] 3.430.2.7 Hospit a .3.865666 l .8 2021-09-18 2021-09-18 Orders Propes, 1.2.840.1 120883738 711062 7001 Methodi 00:00:00 00:00:00 Only Pina 14677.1.[address] 3.430.2.7 Hospit a .3.270658 l .8 2021-09-14 2021-09-14 Orders Tavares, 1.2.840.1 [id number] 609300 2323 Methodi 00:00:00 00:00:00 Only Peggy 49082.1.[address] 3.430.2.7 Hospit a .3.995793 l .8 2021-09-11 2021-09-11 Office Tavares, 1.2.840.1 040600741 324179 0392 Methodi 15:50:00 16:55:49 Visit Peggy 15922.1.[address] 3.430.2.7 Hospit a .3.007673 l .8 2021-09-11 2021-09-11 Travel 1.2.840.1 1.2.119.425 4129 989978 Methodi 00:00:00 00:00:[address] 3.430.2.7 0.2.7.3.698 Ho spita .3.573218 084.8 l .8 2021-09-10 2021-09-10 Office Kem, 1.2.840.1 [id number] 537 [id number] Methodi 10:40:00 11:03:05 Visit Rebecca Nguyen 10070.1.[address] 3.430.2.7 Hospit a .3.051190 l .8 2021-09-10 2021-09-10 Orders Wyatt, 1.2.840.1 [id number] 2099 452089 Methodi 00:00:00 00:00:00 Only Jami 13037.1.[address] 3.430.2.7 Hospit a .3.296014 l .8 2021-09-10 2021-09-10 Outpatient [facility] 2100 342806 [place] 00:00:00 00:00:00 REBECCA Tran Method i [facility] 2021-08-31 2021-08-31 Refill Alicia, 1.2.840.1 [id number] 1506 Methodi 00:00:00 00:00:[address] Doe 3.430.2.7 Hospi ta .3.889474 l .8 2021-08-31 2021-08-31 Refhilda Farris, 1.2.840.1 [id number] 308936 5230 Methodi 00:00:00 00:00:00 Eddie OlyChantal 75371.1.[address] 3.430.2.7 Hospit a .3.699942 l .8 2021-08-29 2021-08-29 Telephone Denisse, 1.2.840.1 [id number] 2099 212977 Methodi 00:00:00 00:00:00 Ivy Ray 70065.1.[address] 3.430.2.7 Hospit a .3.120120 l .8 2021-08-29 2021-08-29 Orders Istre, 1.2.840.1 [id number] 602333 6568 Methodi 00:00:00 00:00:00 Only Shell 54032.1.[address] [place] 3.430.2.7 Hospi ta .3.427922 l .8 2021-08-28 2021-08-28 Travel 1.2.840.1 1.2.310.807 3046 116691 Methodi 00:00:00 00:00:[address] 3.430.2.7 0.2.7.3.698 Ho spita .3.517226 084.8 l .8 2021-08-26 2021-08-26 Emergency Mazin, 1.2.840.1 [id number] 2099 729256 Methodi 16:36:00 20:08:[address] Adrienne 3.430.2.7 Hospit a .3.838345 l .8 2021-08-26 2021-08-26 Orders Colmenter, 1.2.840.1 [id number] 187 [id number] Methodi 00:00:00 00:00:00 Only Linda 82259.1.[address] 3.430.2.7 Hospit a .3.166207 l .8 2021-08-21 2021-08-21 Orders Colmenter, 1.2.840.1 [id number] 600 [id number] Methodi 00:00:00 00:00:00 Only Linda 74330.1.[address] 3.430.2.7 Hospit a .3.770152 l .8 2021-08-14 2021-08-14 Office Colmenter, 1.2.840.1 [id number] 290 [id number] Methodi 11:00:00 13:05:34 Visit Linda 05495.1.[address] 3.430.2.7 Hospit a .3.140851 l .8 2021-08-12 2021-08-12 Office Prasanth, 1.2.840.1 [id number] 535054 5775 Methodi 10:00:00 11:08:57 Visit Eddie Franco 78836.1.[address] 3.430.2.7 Hospit a .3.727925 l .8 2021-08-12 2021-08-12 Travel 1.2.840.1 1.2.786.477 9718 269309 Methodi 00:00:00 00:00:[address] 3.430.2.7 0.2.7.3.698 Ho spita .3.943050 084.8 l .8 2021-08-08 2021-08-08 Emergency EM Lynda, HCAKW SHIRLENE [id number] 49 [facility] 12:48:00 19:41:00 Di 70 [facility] 2021-08-08 2021-08-08 Emergency EM Lynda, HCAKW HCAKW [id number] [facility] 12:48:00 19:41:00 Di [id number] [facility] 2021-08-08 2021-08-08 Outpatient Lynda, HCAMAAME YOUSSEFO [id number] [facility] 19:09:00 19:09:00 Di 00 [facility] 2021-08-08 2021-08-08 [facility] 1.2.840.1 [id number] 811 [id number] Methodi 00:00:00 00:00:00 Orders Shell 13920.1.[address] Doe 3.430.2.7 Hospi ta .3.937953 l .8 2021-08-06 2021-08-06 Emergency Myles Martin 1.2.840.1 [id number] Methodi 14:54:00 18:50:[address] 3.430.2.7 Hospit a .3.715607 l .8 2021-08-06 2021-08-06 Travel 1.2.840.1 1.2.238.262 8100 238582 Methodi 00:00:00 00:00:[address] 3.430.2.7 0.2.7.3.698 Ho spita .3.950182 084.8 l .8 2021-08-04 2021-08-04 Office [facility], 1.2.840.1 [id number] 002612 0120 Methodi 14:20:00 15:33:19 Visit Shell 78180.1.[address] [place] 3.430.2.7 Hospi ta .3.716499 l .8 2021-08-04 2021-08-04 Travel 1.2.840.1 1.2.436.172 4226 124690 Methodi 00:00:00 00:00:[address] 3.430.2.7 0.2.7.3.698 Ho spita .3.605092 084.8 l .8 2021-07-31 2021-07-31 Emergency Nelson Villagran 1.2.840.1 [id number] Methodi 21:39:00 23:28:[address] 3.430.2.7 Hospit a .3.200552 l .8 2021-07-31 2021-07-31 Travel 1.2.840.1 1.2.643.097 0354 346103 Methodi 00:00:00 00:00:[address] 3.430.2.7 0.2.7.3.698 Ho spita .3.977703 084.8 l .8 2021-07-30 2021-07-30 Emergency Myles Martin 1.2.840.1 [id number] Methodi 13:34:00 17:16:[address] 3.430.2.7 Hospit a .3.464423 l .8 2021-07-30 2021-07-30 Telephone Iscorwin, 1.2.840.1 [id number] 2099 [id number] Methodi 00:00:00 00:00:[address] [place] 3.430.2.7 Hospi ta .3.602143 l .8 2021-07-28 2021-07-28 [facility] [id number] 8[address] [place] 00:00:00 00:00:[address] 2021-07-24 2021-07-24 Orders Lopez, 1.2.840.1 [id number] 40703 97677 Methodi 00:00:00 00:00:00 Only Maureen 49972.1.[address] 3.430.2.7 Hospit a .3.764360 l .8 2021-07-23 2021-07-23 Orders Istre, 1.2.840.1 [id number] 378617 5227 Methodi 00:00:00 00:00:00 Only Shell 70697.1.[address] [place] 3.430.2.7 Hospi ta .3.933229 l .8 2021-07-21 2021-07-21 Orders Istre, 1.2.840.1 [id number] 686219 4002 Methodi 00:00:00 00:00:00 Only Shell 89164.1.[address] [place] 3.430.2.7 Hospi ta .3.507506 l .8 2021-07-15 2021-07-15 Telephone Oleksandr, 1.2.840.1 [id number] 21 [id number] Methodi 00:00:00 00:00:[address] 3.430.2.7 Hospit a .3.956861 l .8 2021-07-15 2021-07-15 Travel 1.2.840.1 1.2.057.119 9692 [id number] Methodi 00:00:00 00:00:[address] 3.430.2.7 0.2.7.3.698 Ho spita .3.556886 084.8 l .8 2021-07-10 2021-07-10 Treatment Istre, Shell Persaudrand 1.2.840.1 [id number] Methodi 09:00:00 10:00:00 Peggy Esparza 45480.1.[address] Smooth [place] 3.430.2.7 H ospita .3.410280 l .8 2021-07-10 2021-07-10 Plan of 1.2.840.1 [id number] [id number] 4885 Methodi 00:00:00 00:00:[address] Documentat 3.430.2.7 Hos margie ion .3.465987 l .8 2021-07-09 2021-07-09 Travel 1.2.840.1 1.2.660.818 0010 122100 Methodi 00:00:00 00:00:[address] 3.430.2.7 0.2.7.3.698 Ho spita .3.766582 084.8 l .8 2021-07-09 2021-07-09 Orders Istre, 1.2.840.1 [id number] 711844 3087 Methodi 00:00:00 00:00:00 Only Shell 97084.1.[address] Doe 3.430.2.7 Hospi ta .3.073964 l .8 2021-07-03 2021-07-03 Travel 1.2.840.1 1.2.041.943 8440 013330 Methodi 00:00:00 00:00:[address] 3.430.2.7 0.2.7.3.698 Ho spita .3.758861 084.8 l .8 2021-06-30 2021-06-30 Emergency Tyshawn, Nelson 1.2.840.1 [id number] Methodi 14:43:00 20:06:[address] 3.430.2.7 Hospit a .3.833003 l .8 2021-06-19 2021-06-19 Orders Madera, 1.2.840.1 [id number] 003059 5337 Methodi 00:00:00 00:00:00 Only Susanne 95977.1.[address] 3.430.2.7 Hospit a .3.595211 l .8 2021-06-18 2021-06-18 Orders Tran, 1.2.840.1 [id number] 886611 5756 Methodi 00:00:00 00:00:00 Only Kortney 19911.1.[address] 3.430.2.7 Hospit a .3.930025 l .8 2021-06-18 2021-06-18 Telephone Jessica, 1.2.840.1 [id number] 295 8798224 Methodi 00:00:00 00:00:[address] 3.430.2.7 Hospit a .3.966479 l .8 2021-06-16 2021-06-16 Office Prasanth, 1.2.840.1 [id number] 000139 7921 Methodi 11:40:00 13:03:55 Visit Eddie Franco 49887.1.[address] 3.430.2.7 Hospit a .3.443141 l .8 2021-06-16 2021-06-16 Travel 1.2.840.1 1.2.980.067 7052 083204 Methodi 00:00:00 00:00:[address] 3.430.2.7 0.2.7.3.698 Ho spita .3.280195 084.8 l .8 2021-06-03 2021-06-03 Refill Santy, 1.2.840.1 [id number] 228580 9041 Methodi 00:00:00 00:00:[address] 3.430.2.7 Hospit a .3.117063 l .8 2021-06-03 2021-06-03 Telephone Abreu, 1.2.840.1 [id number] 2099 567762 Methodi 00:00:00 00:00:[address] 3.430.2.7 Hospit a .3.310643 l .8 2021-06-02 2021-06-02 Emergency Gunnar, 1.2.840.1 [id number] 2 [id number] Methodi 10:56:00 13:23:00 Mario Crook 78170.1.1 606 [address] t 3.430.2.7 Hospit a .3.465206 l .8 2021-06-02 2021-06-02 Orders Istre, 1.2.840.1 384797065 728885 2067 Methodi 00:00:00 00:00:00 Only Shell 87110.1.[address] Doe 3.430.2.7 Hospi ta .3.452754 l .8 2021-05-30 2021-05-30 Treatment IsShell olivia 1.2.840.1 [id number] Methodi 10:00:00 11:00:00 Smooth [place] 45152.1.[address] 3.430.2.7 Hospit a .3.378925 l .8 2021-05-28 2021-05-28 Orders Istre, 1.2.840.1 691847917 238966 4571 Methodi 00:00:00 00:00:00 Only Shell 96372.1.[address] [place] 3.430.2.7 Hospi ta .3.206179 l .8 2021-05-27 2021-05-27 Travel 1.2.840.1 1.2.844.974 8001 555295 Methodi 00:00:00 00:00:[address] 3.430.2.7 0.2.7.3.698 Ho spita .3.419374 084.8 l .8 2021-05-19 2021-05-19 Evaluation Shell Vargas 1.2.840.1 [id number] Methodi 11:00:00 12:00:00 Peggy Esparza 48096.1.[address] [place], Smooth 3.430.2.7 H ospita .3.565735 l .8 2021-05-19 2021-05-19 Plan of 1.2.840.1 399949966 014698 9025 Methodi 00:00:00 00:00:[address] Documentat 3.430.2.7 Hos margie ion .3.317560 l .8 2021-05-19 2021-05-19 Travel 1.2.840.1 1.2.124.851 8140 997619 Methodi 00:00:00 00:00:[address] 3.430.2.7 0.2.7.3.698 Ho spita .3.056918 084.8 l .8 2021-05-09 2021-05-09 Travel 1.2.840.1 1.2.439.770 0037 939047 Methodi 00:00:00 00:00:[address] 3.430.2.7 0.2.7.3.698 Ho spita .3.459650 084.8 l .8 2021-05-09 2021-05-09 Outpatient TAVARES [facility] [id number] [address] [place] [address] 00:00:00 00:00:[address] PEGGY [address] 2021-05-06 2021-05-06 Orders Istre, 1.2.840.1 [id number] 324092 7943 Methodi 00:00:00 00:00:00 Only Shell 23454.1.[address] Doe 3.430.2.7 Hospi ta .3.678050 l .8 2021-05-05 2021-05-05 Outpatient [facility] [id number] 738 [place] 00:00:00 00:00:[address] PEGGY [address] 2021-05-04 2021-05-04 Emergency Oghogho, 1.2.840.1 [id number] 724 [id number] Methodi 14:39:00 18:56:[address] 3.430.2.7 Hospit a .3.501701 l .8 2021-05-04 2021-05-04 Travel 1.2.840.1 1.2.079.342 4544 070263 Methodi 00:00:00 00:00:[address] 3.430.2.7 0.2.7.3.698 Ho spita .3.114316 084.8 l .8 2021-05-02 2021-05-02 Outpatient [facility] [id number] [id number] [place] 00:00:00 00:00:00 [facility] 2021-04-30 2021-04-30 Travel 1.2.840.1 1.2.183.688 1501 871298 Methodi 00:00:00 00:00:[address] 3.430.2.7 0.2.7.3.698 Ho spita .3.404465 084.8 l .8 2021-04-28 2021-04-28 Orders Istre, 1.2.840.1 293395516 869678 4597 Methodi 00:00:00 00:00:00 Only Shell 65451.1.[address] Doe 3.430.2.7 Hospi ta .3.724291 l .8 2021-04-17 2021-04-17 Office Istre, 1.2.840.1 983676784 937786 5042 Methodi 15:00:00 15:00:06 Visit Shell 59446.1.[address] [place] 3.430.2.7 Hospi ta .3.797448 l .8 2021-04-16 2021-04-16 Travel 1.2.840.1 1.2.031.313 4146 128523 Methodi 00:00:00 00:00:[address] 3.430.2.7 0.2.7.3.698 Ho spita .3.949701 084.8 l .8 2021-04-12 2021-04-12 Emergency Svach, 1.2.840.1 [id number] 2099 660543 Methodi 15:47:00 22:48:00 Shine Nunes 13726.1.[address] 3.430.2.7 Hospit a .3.726879 l .8 2021-04-08 2021-04-08 Travel 1.2.840.1 1.2.787.401 3042 757358 Methodi 00:00:00 00:00:[address] 3.430.2.7 0.2.7.3.698 Ho spita .3.555963 084.8 l .8 2021-03-28 2021-03-28 Office Rj Khoury [facility] [id number] [place] 08:30:00 09:30:00 Visit [facility] 2021-03-28 2021-03-28 Outpatient JACKIE [facility] [id number] [place] 00:00:00 00:00:00 [facility] 2021-03-14 2021-03-14 Outpatient RADHA [facility] [id number] 1468 [place] 00:00:00 00:00:00 [facility] 2021-03-03 2021-03-03 Telephone Iscorwin, 1.2.840.1 [id number] 2099 844795 Methodi 11:20:00 11:48:51 Consult Shell 47925.1.[address] Doe 3.430.2.7 Hospi ta .3.519896 l .8 2021-02-27 2021-02-27 Travel 1.2.840.1 1.2.271.218 1783 148002 Methodi 00:00:00 00:00:[address] 3.430.2.7 0.2.7.3.698 Ho spita .3.642789 084.8 l .8 2021-02-19 2021-02-19 Outpatient VESOLIS, [facility] 2100 [id number] [place] 00:00:00 00:00:00 PIMPRAPA 626 Metho di 2021-02-17 2021-02-17 Outpatient [facility] [id number] 297 [place] 00:00:00 00:00:00 482 Method i 2021-02-17 2021-02-17 Outpatient STACI, [facility] [id number] 406 [place] 00:00:00 00:00:00 PROCTOR 706 Method i 2021-02-10 2021-02-10 Outpatient TAVARES, [facility] [id number] 790 [place] 00:00:00 00:00:00 PEGGY 856 Method i 2021-02-07 2021-02-07 Outpatient ALICIA, [facility] [id number] 637 [place] 00:00:00 00:00:00 SHELL 793 Method i 2021-01-30 2021-01-31 Outpatient IMELDA, [facility] 771 [id number] 174 [place] 00:00:00 00:00:00 KRISTY 451 Method i 2021-01-25 2021-01-25 Emergency KILLIANKENA [facility] 064 [id number] 00227 [place] 00:00:00 00:00:00 190 Method i 2021-01-24 2021-01-24 Outpatient CARLY, [facility] 2100 [id number] [place] 00:00:00 00:00:00 PIMPRAPA 711 Metho di 2021-01-09 2021-01-09 Outpatient [facility] [id number] 646 [place] 00:00:00 00:00:00 247 Method i 2020-12-29 2020-12-29 Emergency VASQUEZ, [facility] 064 [id number] 98 [place] 00:00:00 00:00:00 CRISTÓBAL 225 Method i 2020-12-23 2020-12-23 Outpatient PRASANTH, [facility] [id number] 498 [place] 00:00:00 00:00:00 EDDIE 305 Method i 2020-12-11 2020-12-11 Emergency VASQUEZ, [facility] 064 [id number] 96 [place] 00:00:00 00:00:00 CRISTÓBAL 030 Method i 2020-12-08 2020-12-08 Emergency TRISTAN, [facility] 064 [id number] 26 [place] 00:00:00 00:00:00 TRUNG 699 Method i 2020-11-25 2020-11-26 Office Doug Estevez [facility] Encounter/ Legacy 00:00:00 00:00:00 Visit Symone Moreau 0391 Communi 620649 [facility] 2020-11-25 2020-11-26 Office Dogu Estevez [facility] Encounter/ Legacy 00:00:00 00:00:00 Visit Symone Moreua 3531 Communi 172533 [facility] 2020-11-18 2020-11-18 Outpatient STACI, [facility] [id number] 074 [place] 00:00:00 00:00:00 PROCTOR 729 Method i 2020-11-02 2020-11-02 Emergency TERA, [facility] [id number] [id number] 062 [place] 00:00:00 00:00:00 ROGER 241 Method i 2020-10-29 2020-10-29 Outpatient SMALL, [facility] [id number] 857 [place] 00:00:00 00:00:00 PROCTOR 983 Method i 2020-10-25 2020-10-25 Outpatient CARLY, [facility] 2100 [id number] [place] 00:00:00 00:00:00 PIMPRAPA [address] 2020-10-24 2020-10-24 Outpatient CARLY, [facility] 2100 [id number] [place] 00:00:00 00:00:00 PIMPRAPA 921 Metho di 2020-10-18 2020-10-19 Emergency HOPE, [facility] 064 [id number] 58 [place] 00:00:00 00:00:00 TRUNG [address] 2020-10-18 2020-10-18 Outpatient SMALL, [facility] [id number] 110 [place] 00:00:00 00:00:00 PROCTOR [address] 2020-10-11 2020-10-11 Emergency COURTNEY, [facility] [id number] 52 [place] 00:00:00 00:00:00 TRUNG 080 Method i 2020-10-09 2020-10-09 Outpatient PRASANTH, [facility] [id number] 499 [place] 00:00:00 00:00:00 EDDIE 020 Method i 2020-10-01 2020-10-01 Outpatient AHMED, [facility] [id number] 980 [place] 00:00:00 00:00:00 MOHAMMAD 768 Metho di 2020-09-26 2020-09-26 Outpatient SMALL, [facility] [id number] 765 [place] 00:00:00 00:00:00 PROCTOR [address] 2020-09-13 2020-09-13 Outpatient PRASANTH, [facility] [id number] 045 [place] 00:00:00 00:00:00 EDDIE [address] 2020-09-11 2020-09-11 Outpatient VEJPONGSA, [facility] [id number] [id number] [place] 00:00:00 00:00:00 PIMPRAPA 754 Metho di 2020-08-23 2020-08-23 Outpatient AHMED, [facility] [id number] 605 [place] 00:00:00 00:00:00 MOHAMMAD 132 Metho di 2020-08-19 2020-08-21 Outpatient MELTON, [facility] [id number] 265 [place] 00:00:00 00:00:00 TRUNG 187 Method i 2020-07-31 2020-08-01 Outpatient ARREDONDO, [facility] [id number] 975 [place] 00:00:00 00:00:00 RG [address] 2020-07-16 2020-07-16 Emergency HOPE, [facility] 064 [id number] 18 [place] 00:00:00 00:00:00 TRUNG [address] 2020-07-05 2020-07-05 Outpatient BROCK, [facility] [id number] [place] 00:00:00 00:00:[address] [facility] 2020-07-05 2020-07-05 Emergency VASQUEZ, [facility] 064 [id number] 62 [place] 00:00:00 00:00:00 CRISTÓBAL [address] 2020-06-28 2020-06-28 Outpatient SMALL, [facility] [id number] 302 [place] 00:00:00 00:00:00 PROCTOR [address] 2020-06-27 2020-06-27 Outpatient PRASANTH, [facility] [id number] 221 [place] 00:00:00 00:00:00 EDDIE [address] 2020-06-24 2020-06-24 Outpatient ISTRE, [facility] [id number] 844 [place] 00:00:00 00:00:00 SHELL 509 Method i 2020-06-19 2020-06-20 Emergency LEIA, [place] [address] [id number] 53 [place] 00:00:00 00:00:00 NADIM [address] 2020-06-11 2020-06-11 Outpatient SMALL, [facility] [id number] 229 [place] 00:00:00 00:00:00 PROCTOR [address] 2020-06-11 2020-06-11 Outpatient SMALL, [facility] [id number] 908 [place] 00:00:00 00:00:00 PROCTOR [address] 2020-06-06 2020-06-06 Outpatient ISCORWIN, [facility] [id number] 806 [place] 00:00:00 00:00:00 SHELL [address] 2020-06-03 2020-06-03 Outpatient ISTRE, [facility] [id number] 559 [place] 00:00:00 00:00:00 SHELL [address] 2020-06-03 2020-06-03 Outpatient ISTRE, [facility] [id number] 559 [place] 00:00:00 00:00:00 SHELL [address] 2020-05-26 2020-05-27 Outpatient SMALL, [place] [address] [id number] 252 [place] 00:00:00 00:00:00 HAYLEE 766 Method i 2020-05-24 2020-05-24 Emergency JOSSY, [facility] 064 [id number] 24 [place] 00:00:00 00:00:00 BELKIS [address] 2020-05-23 2020-05-23 Emergency FORMAN, [facility] 064 [id number] 56 [place] 00:00:00 00:00:00 TANIA 926 Method i 2020 2020 Outpatient ISTRE, [facility] [id number] [place] 00:00:00 00:00:00 SHELL 882 Method i 2020 2020 Emergency KENDTIM, [facility] 064 [id number] 65 [place] 00:00:00 00:00:00 KALIF 304 Method i 2020-05-20 2020-05-20 Outpatient ISTRE, [facility] [id number] 407 [place] 00:00:00 00:00:00 SHELL 217 Method i 2020-05-13 2020-05-13 Outpatient LIBBY, [facility] [id number] 41 [place] 00:00:00 00:00:00 TRACILELICEO Healt 2020-05-11 2020-05-11 Emergency HOPE, [facility] 064 [id number] 87 [place] 00:00:00 00:00:00 TRUNG 164 Method i 2020-05-07 2020-05-07 Outpatient ROGER ZAPATA [facility] [id number] [place] 07:48:18 07:48:18 Health 2020-04-15 2020-04-15 Emergency CONSTANTIN KENA [facility] 064 [id number] [place] 00:00:00 00:00:00 597 Method i 2020-04-01 2020-04-01 Emergency KENDTIM, [facility] 064 [id number] 10 [place] 00:00:00 00:00:00 KALIF 631 Method i 2020-03-23 2020-03-24 Inpatient SEPTIMUS, [facility] 089 [id number] [place] 00:00:00 00:00:00 STEPHY 252 Method i 2020-03-23 2020-03-23 Emergency HOPE, [facility] 064 [id number] 79 [place] 00:00:00 00:00:00 TRUNG [address] 2020-03-20 2020-03-20 Emergency ALTAGRACIA VILLASENOR [facility] 2100 [id number] [place] 00:00:00 00:00:00 875 Method i 2020-02-29 2020-03-01 Emergency DE CRANDALL, [place] [address] [id number] [place] 00:00:00 00:00:00 CHRISTOPHER 731 Me thodi 2020-02-05 2020-02-06 Emergency ENE, [place] [address] [id number] 7273 [place] 00:00:00 00:00:00 KEM 185 Meth john 2020-02-03 2020-02-03 Emergency DE CRANDALL, [place] [address] [id number] [place] 00:00:00 00:00:00 CHRISTOPHER 451 Me thodi 2019-12-20 2019-12-21 Emergency EEN, [place] [address] [id number] [place] 00:00:00 00:00:00 KEM 640 Meth john 2019-12-14 2019-12-14 Emergency KI, [place] [address] [id number] 06 [place] 00:00:00 00:00:00 KALIF 126 Method i 2019-12-11 2019-12-11 Emergency HOPE, [place] [address] [id number] 68 [place] 00:00:00 00:00:00 TRUNG 349 Method i 2019-12-08 2019-12-08 Emergency WINGLuizUN, [place] [address] [id number] 034 [place] 00:00:00 00:00:00 ISAC 449 Me thodi 2019-11-24 2019-11-24 Outpatient ROGER ZAPATA [facility] [id number] [place] 00:00:00 00:00:00 [facility] 2019-11-21 2019-11-21 Emergency TYSHAWN, NELSON [facility] 064 [id number] [place] 00:00:00 00:00:00 015 Method i 2019-11-14 2019-11-14 Outpatient ROGER ZAPATA [facility] [id number] [place] 06:55:06 06:55:06 Health 2019-11-13 2019-11-13 Outpatient [facility] [id number] [place] 00:00:00 00:00:00 [facility] 2019-11-10 2019-11-11 Emergency HOPE, [place] [address] [id number] 84 [place] 00:00:00 00:00:00 TRUNG 398 Method i 2019-11-07 2019-11-07 Outpatient [facility] [id number] [place] 14:24:03 14:24:03 2019-11-07 2019-11-07 Outpatient [facility] [id number] [place] 12:22:44 12:22:44 2019-11-07 2019-11-07 Outpatient [facility] [id number] [place] 00:00:00 00:00:00 2019-11-07 2019-11-07 Outpatient [facility] [id number] [place] 00:00:00 00:00:00 Health 2019-10-30 2019-10-30 Outpatient [facility] [id number] 54 [place] 11:49:58 11:49:58 Health 2019-10-30 2019-10-30 Outpatient [facility] [id number] 74 [place] 00:00:00 00:00:00 2019-10-12 2019-10-12 Outpatient [facility] [id number] [place] 00:00:00 00:00:00 2019-10-10 2019-10-10 Outpatient [facility] [id number] [place] 08:15:33 08:15:33 2019-10-09 2019-10-09 Outpatient [facility] [id number] 39 [place] 00:00:00 00:00:00 2019-09-25 2019-09-25 Outpatient [facility] [id number] [place] 00:00:00 00:00:00 Health 2019-09-19 2019-09-19 Outpatient [facility] [id number] [place] 15:17:15 15:17:15 Health 2019-09-12 2019-09-12 Outpatient [facility] [id number] [place] 09:33:27 09:33:27 Health 2019-09-12 2019-09-12 Outpatient [facility] [id number] [place] 08:35:47 08:35:47 Health 2019-09-12 2019-09-12 Outpatient [facility] [id number] [place] 00:00:00 00:00:00 2019-09-09 2019-09-09 Emergency HOPE, [facility] 064 [id number] 57 [place] 00:00:00 00:00:00 TRUNG 622 Antonio william 2019-08-25 2019-08-25 Outpatient [facility] [id number] [place] 06:54:32 06:54:32 Health 2019-08-24 2019-08-24 Outpatient [facility] [id number] [place] 00:00:00 00:00:00 2019-08-23 2019-08-23 Outpatient [facility] [id number] 24 [place] 00:00:00 00:00:00 Health 2019-08-05 2019-08-05 Emergency VANDER [facility] [id number] 83 [place] 00:00:00 00:00:00 OTILIO, Jaci2 Method i [address] [facility] 2019-08-03 2019-08-03 Emergency BARRON HARDIN [facility] 2100 [id number] [place] 00:00:00 00:00:[address] 2019-07-24 2019-07-24 Outpatient [facility] [id number] [place] 08:35:14 08:35:14 Health 2019-06-21 2019-06-21 Outpatient [facility] [id number] [place] 00:00:00 00:00:00 Health 2019-06-15 2019-06-16 Emergency HOPE, [facility] 064 [id number] 79 [place] 00:00:00 00:00:00 TRUNG Koroma[address] [facility] [address] 2019-06-15 2019-06-15 Emergency [facility] MED [id number] [place] 14:03:00 14:03:00 Health 2019-06-14 2019-06-14 Outpatient [facility] [id number] 74 [place] 00:00:00 00:00:00 Health 2019-06-08 2019-06-08 Outpatient [facility] [id number] [place] 13:49:26 13:49:26 Health 2019-06-08 2019-06-08 Outpatient [facility] [id number] 10 [place] 13:11:00 13:11:00 Health 2019-06-08 2019-06-08 Outpatient [facility] [id number] 93 [place] 00:00:00 00:00:00 Health 2019-06-07 2019-06-07 Emergency [facility] [id number] [place] 12:06:12 12:06:12 Health 2019-06-07 2019-06-07 Emergency [facility] MED [id number] [place] 10:57:48 10:57:48 Health 2019-03-15 2019-03-15 Outpatient [facility] [id number] [place] 14:00:36 14:00:36 Health 2019-03-15 2019-03-15 Outpatient [facility] [id number] [place] 12:20:09 12:20:09 Health 2019-03-15 2019-03-15 Outpatient [facility] [id number] [place] 00:00:00 00:00:00 Health 2019-01-25 2019-01-25 Outpatient [facility] [id number] 25 [place] 10:20:47 10:20:47 Health 2019-01-13 2019-01-13 Outpatient [facility] [id number] [place] 10:25:55 10:25:55 Health 2019-01-03 2019-01-03 Outpatient [facility] [id number] [place] 10:33:43 10:33:43 Health 2019-01-03 2019-01-03 Outpatient [facility] [id number] [place] 08:40:50 08:40:50 [facility] 2019-01-03 2019-01-03 Outpatient [facility] [id number] [place] 07:58:31 07:58:31 Health 2019-01-03 2019-01-03 Outpatient [facility] [id number] [place] 00:00:00 00:00:00 [facility] 2018-12-29 2018-12-29 Outpatient [facility] [id number] [place] 00:00:00 00:00:00 [facility] 2018-12-27 2018-12-27 Outpatient [facility] [id number] [place] 00:00:00 00:00:00 [facility] 2018-12-26 2018-12-26 Outpatient [facility] [id number] [place] 16:37:58 16:37:58 [facility] 2018-12-09 2018-12-09 Outpatient [facility] [id number] [place] 16:51:56 16:51:56 [facility] 2018-12-09 2018-12-09 Outpatient [facility] [id number] [place] 14:15:31 14:15:31 [facility] 2018-12-09 2018-12-09 Outpatient [facility] [id number] [place] 00:00:00 00:00:00 [facility] 2018-11-26 2018-11-26 Emergency [facility] [id number] [place] 16:08:40 16:08:40 [facility] 2018-01-17 2018-01-17 Outpatient E MYRNA CEDENO [facility] [id number] [place] 10:49:00 12:30:00 [facility] [place] 2017-12-28 2017-12-28 Outpatient E AQUINO, [facility] [id number] [place] 10:12:00 12:25:00 [facility] [place] 2017-12-20 2017-12-20 Outpatient E MYRNA CEDENO [facility] [id number] [place] 23:13:00 23:50:00 [facility] [place] 2017-10-15 2017-10-15 Outpatient Mark TIJERINA, [facility] [id number] [facility] 09:57:00 11:15:00 [facility] Results Test Description Test Time Test Comments Results Result Comments Source ECG 12 lead 2022-03-24 04:27:49 Test Item Value Reference Range Interpretation Comme nts Ventricular rate (test code = 253) Atrial rate (test code = 255) MS interval (test code = 266) QRSD interval [...] of 28-NOV-2021 10:26,-No significant change was found- [address]2022-12-13 04:27:49 Test Item Value Reference Range Interpretation Comments Ventricular rate (test code = 253) Atrial rate (test code = 255) MS interval (test code = 266) QRSD interval [...] of 28-NOV-2021 10:26,-No significant change was found- [address]2022-12-13 04:27:49 Test Item Value Reference Range Interpretation Comments Ventricular rate (test code = 253) Atrial rate (test code = 255) MS interval (test code = 266) QRSD interval [...] of 28-NOV-2021 10:26,-No significant change was found- [address]2022-12-13 04:27:49 Test Item Value Reference Range Interpretation Comments Ventricular rate (test 71 code = 253) Atrial rate (test code 71 = 255) MS interval (test code 124 = 266) QRSD [...] of 28-NOV-2021 10:26,-No significant change was found- [address]2022-12-13 04:27:49 Test Item Value Reference Range Interpretation Comments Ventricular rate (test 71 code = 253) Atrial rate (test code 71 = 255) MS interval (test code 124 = 266) QRSD [...] of 28-NOV-2021 10:26,-No significant change was found- [address]2022-12-13 04:27:49 Test Item Value Reference Range Interpretation Comments Ventricular rate (test 71 code = 253) Atrial rate (test code 71 = 255) MS interval (test code 124 = 266) QRSD [...] of 28-NOV-2021 10:26,-No significant change was found- [address]2022-12-13 04:27:49 Test Item Value Reference Range Interpretation Comments Ventricular rate (test 71 code = 253) Atrial rate (test code 71 = 255) MS interval (test code 124 = 266) QRSD [...] of 28-NOV-2021 10:26,-No significant change was found- [address]2022-12-13 04:27:49 Test Item Value Reference Range Interpretation Comments Ventricular rate (test 71 code = 253) Atrial rate (test code 71 = 255) MS interval (test code 124 = 266) QRSD [...] of 28-NOV-2021 10:26,-No significant change was found- [address]2022-12-13 04:27:49 Test Item Value Reference Range Interpretation Comments Ventricular rate (test 71 code = 253) Atrial rate (test code 71 = 255) MS interval (test code 124 = 266) QRSD [...] of 28-NOV-2021 10:26,-No significant change was found- [address]2022-12-13 04:27:49 Test Item Value Reference Range Interpretation Comments Ventricular rate (test 71 code = 253) Atrial rate (test code 71 = 255) MS interval (test code 124 = 266) QRSD [...] of 28-NOV-2021 10:26,-No significant change was found- [address]2022-12-13 04:27:49 Test Item Value Reference Range Interpretation Comments Ventricular rate (test 71 code = 253) Atrial rate (test code 71 = 255) MS interval (test code 124 = 266) QRSD [...] of 28-NOV-2021 10:26,-No significant change was found- [address]2022-12-13 04:27:49 Test Item Value Reference Range Interpretation Comments Ventricular rate (test 71 code = 253) Atrial rate (test code 71 = 255) MS interval (test code 124 = 266) QRSD [...] of 28-NOV-2021 10:26,-No significant change was found- [address]2022-12-13 04:27:49 Test Item Value Reference Range Interpretation Comments Ventricular rate (test 71 code = 253) Atrial rate (test code 71 = 255) MS interval (test code 124 = 266) QRSD [...] of 28-NOV-2021 10:26,-No significant change was found- [address]2022-12-13 04:27:49 Test Item Value Reference Range Interpretation Comments Ventricular rate (test 71 code = 253) Atrial rate (test code 71 = 255) MS interval (test code 124 = 266) QRSD [...] of 28-NOV-2021 10:26,-No significant change was found- [facility] 12 [id number] 04:27:49 Test Item Value Reference Range Interpretation Comments Ventricular rate (test 71 code = 253) Atrial rate (test code 71 = 255) MS interval (test code 124 = 266) QRSD [...] significant change was found- [facility]2022-11-10 23:39:00 Test Item Value Reference Range Interpretation Comments Urine culture (test SEE COMMENT Bacteriu brandon screen code = 2062837) negative. [facility]2022-11-10 23:39:00 Test Item Value Reference Range Interpretation Comments Urine culture (test SEE COMMENT Bacteriu brandon screen code = 9404072) negative. [facility]2022-11-10 23:39:00 Test Item Value Reference Range Interpretation Comments Urine culture (test SEE COMMENT Bacteriu brandon screen code = 0278815) negative. [facility]2022-11-10 23:39:00 Test Item Value Reference Range Interpretation Comments Urine culture (test SEE COMMENT Bacteriu brandon screen code = 6699349) negative. [facility]2022-11-10 23:39:00 Test Item Value Reference Range Interpretation Comments Urine culture (test SEE COMMENT Bacteriu brandon screen code = 6123201) negative. [facility]2022-11-10 23:39:00 Test Item Value Reference Range Interpretation Comments Urine culture (test SEE COMMENT Bacteriu brandon screen code = 6665313) negative. [facility]2022-11-10 23:39:00 Test Item Value Reference Range Interpretation Comments Urine culture (test SEE COMMENT Bacteriu brandon screen code = 3919726) negative. [place] [id number] 23:39:00 Test Item Value Reference Range Interpretation Comments Urine culture (test SEE COMMENT Bacteriu brandon screen code = 1764121) negative. [facility]2022-11-10 23:39:00 Test Item Value Reference Range Interpretation Comments Urine culture (test SEE COMMENT Bacteriu brandon screen code = 3696993) negative. [facility]2022-11-10 23:39:00 Test Item Value Reference Range Interpretation Comments Urine culture (test SEE COMMENT Bacteriu brandon screen code = 6071867) negative. [facility]2022-11-10 23:39:00 Test Item Value Reference Range Interpretation Comments Urine culture (test SEE COMMENT Bacteriu brandon screen code = 8977435) negative. [address]11-10 23:39:00 Test Item Value Reference Range Interpretation Comments Urine culture (test SEE COMMENT Bacteriu brandon screen code = 2796260) negative. [address]11-10 23:39:00 Test Item Value Reference Range Interpretation Comments Urine culture (test SEE COMMENT Bacteriu brandon screen code = 6819444) negative. [facility]2022-11-10 23:39:00 Test Item Value Reference Range Interpretation Comments Urine culture (test SEE COMMENT Bacteriu brandon screen code = 8298197) negative. [facility]2022-11-10 23:39:00 Test Item Value Reference Range Interpretation Comments Urine culture (test SEE COMMENT Bacteriu brandon screen code = 3160328) negative. [place] [id number] 23:39:00 Test Item Value Reference Range Interpretation Comments Urine culture (test SEE COMMENT Bacteriu brandon screen code = 1984054) negative. [facility]2022-11-10 23:39:00 Test Item Value Reference Range Interpretation Comments Urine culture (test SEE COMMENT Bacteriu brandon screen code = 3824333) negative. [facility]2022-11-10 23:39:00 Test Item Value Reference Range Interpretation Comments Urine culture (test SEE COMMENT Bacteriu brandon screen code = 9075841) negative. [facility] B surface [id number] 22:17:00 Test Item Value Reference Range Interpretation Comments Hepatitis B surface NON-REACTIVE NON-REACTIVE Ag (test code = 5196-1) RAC (test code = RAC) Performing Organization Information: Site ID: RGRd [facility]: [facility] Address: [address] [place] [address] Director: Rajinder Garnt [facility] with reflex to [id number] 22:17:00 Test Item Value Reference Range Interpretation Comments RPR (test code = NON-REACTIVE NON-REACTIVE 57521-3) RAC (test code = Performing Organization RAC) Information: Site ID: KATERINA Name: [facility] Address: [address] [place] [address] Director: Rajinder Grant [facility] C virus (HCV), quantitative [id number] 22:17:00 Test Item Value Reference Interpretation Comments Range HCV RNA, <15 NOT DETECTED NOT DETECTED quantitative PCR IU/mL (test code = 61607-3) HCV viral log <1.18 NOT DETECTED NOT DETECTED This bhupendra t was (test code = Log IU/mL performed using 67248-2) Real-Time Polym erase [employer]. Reportable Rang e: 15 IU/mL to 100,00 0,000 IU/mL(1.18 Log IU/mL to 8.00 Log IU/ mL). The analytical performance characteristics of thisassay have been determined by [employer]. Th e modifications h ave not been cleare d or approved bythe FDA. This assay has been validated pursu ant to the CLIA regulations and is used for clinic al purposes. For m ore information on this test, go to:http://educa tion. Zocere /faq/NRI15u2(Th is link is being provided for informational/e ducat ional purposes only.) RAC (test code = Performing RAC) Organization Information: Site ID: IG Name: [facility] Address: [address] [place] [address] Director: Dr. Rajinder Grant [facility] C [id number] 22:17:00 Test Item Value Reference Interpretation Comments Range Hepatitis C Ab (test REACTIVE NON-REACTIVE A code = 70662-5) Signal/cutoff (test >11.00 See_Comment H Based o n this code = 38095-1) result, the sample will be testedf or [...] RAC) Organization Information: Site ID: RGA Name: [facility] Address: [address] [place] [address] Director: Rajinder Grant Lab Interpretation Abnormal (test code = 84982-7) [facility] type [facility]/2 combined Ab, [id number] 22:17:00 Test Item Value Reference Interpretation Comments Range HSV 1 IgM NEGATIVE (test code = 96450-5) HSV 2 IgM NEGATIVE REFERENCE RANG E: NEGATIVE HSV (test IgM is detectab le in serum code = from >90% of [facility] [address]-0) primary HSV inf ection. However, HSV Ig [...] performancechar acteristics have been deter mined by [employer].It has not been cleared or appr luis by FDA. This assay hasb een validated pursuant to the CLIA regulations and isused for clinical purpos es. RAC (test Performing code = Organization RAC) Information: Site ID: EZ Name: [employer], Address: [address] [place] [address] Director: Crista Camacho MD,PhD,BARI [facility] CenterHIV 1/2 antigen/antibody, fourth generation, with reflexes 2022-02-11 22:17:00 Test Item Value Reference Range Interpretation Comments HIV NON-REACTIVE NON-REACTIVE HIV-1 antigen a nd antigen/ant HIV-1/HIV-2 ant ibodies ibody 4th were notdetecte d. There gen (test is no laborator y evidence code = of HIVinfection . PLEASE 75704-5) NOTE: This info rmation has been disclo [...] ad ditional information ple ase refer tohttp://educat ion.Settle/ faq/GJQ954 (This link is b eing provided for informational/e ducational purposes only.) The performance of this assay has not been clinicallyvalid ated in patients less t lagunas 2 years old. RAC (test Performing code = RAC) Organization Information: Site ID: RGA Name: [facility] Address: [address] [place] [address] Director: Rajinder Grant [facility] ServicesV 1 and 2 specific Ab [id number] 22:17:00 Test Item Value Reference Interpretation Comments [...] ease refer to http://educatio n.Ques tDiagnostics.co m/faq/ PQS729 (This li nk is being provided for informational/e ducati onal purposes o nly.) RAC (test code = Performing RAC) Organization Information: Site ID: IG Name: [facility] Lab Address: [address] [place] [address] Director: Dr. Rajinder Grant Lab Interpretation Abnormal (test code = 53414-7) [facility] surface [id number] 22:17:00 Test Item Value Reference Range Interpretation Comments Hepatitis B surface NON-REACTIVE NON-REACTIVE Ag (test code = 5196-1) RAC (test code = RAC) Performing Organization Information: Site ID: RGA Name: [facility] Address: [address] [place] [address] Director: Rajinder Grant [facility]RP with reflex to [id number] 22:17:00 Test Item Value Reference Range Interpretation Comments RPR (test code = NON-REACTIVE NON-REACTIVE 88627-2) RAC (test code = Performing Organization RAC) Information: Site ID: RGA Name: [facility] Address: [address] [place] [address] Director: Rajinder Grant [facility] C virus (HCV), quantitative [id number] 22:17:00 Test Item Value Reference Interpretation Comments Range HCV RNA, <15 NOT DETECTED NOT DETECTED quantitative PCR IU/mL (test code = 28852-6) HCV viral log <1.18 NOT DETECTED NOT DETECTED This bhupendra t was (test code = Log IU/mL performed using 18754-5) Real-Time Polym erase [employer]Reaction. Reportable Rang e: 15 IU/mL to 100,00 0,000 IU/mL(1.18 Log IU/mL to 8.00 Log IU/ mL). The analytical performance characteristics of thisassay have been determined by [employer]. Th e modifications h ave not been cleare d or approved bythe FDA. This assay has been validated pursu ant to the CLIA regulations and is used for clinic al purposes. For m ore information on this test, go to:http://educa tion. Zocere /faq/TNB25i2(Th is link is being provided for informational/e ducat ional purposes only.) RAC (test code = Performing RAC) Organization Information: Site ID: IG Name: [facility] Address: [address] [place] [address] Director: Dr. Rajinder Grant [facility] CenterHep[facility] C [id number] 22:17:00 Test Item Value Reference Interpretation Comments Range Hepatitis C Ab (test REACTIVE NON-REACTIVE A code = 54072-1) Signal/cutoff (test >11.00 See_Comment H Based o n this code = 35171-9) result, the sample will be testedf or [...] RAC) Organization Information: Site ID: RGA [facility]: [facility] Address: [address] [place] [address] Director: Rajinder Grant Lab Interpretation Abnormal (test code = 12901-1) [facility] CenterHSV type 1/2 combined Ab, [id number] 22:17:00 Test Item Value Reference Interpretation Comments Range HSV 1 IgM NEGATIVE (test code = 73936-5) HSV 2 IgM NEGATIVE REFERENCE RANG E: NEGATIVE HSV (test IgM is detectab le in serum code = from >90% of [facility] [address]-6) primary HSV inf ection. However, HSV Ig [...] performancechar acteristics have been deter mined by [employer].It has not been cleared or appr luis by FDA. This assay hasb een validated pursuant to the CLIA regulations and isused for clinical purpos es. RAC (test Performing code = Organization RAC) Information: Site ID: EZ Name: [facility], Address: [address] [place] [address] Director: Crista Camacho MD,PhD,BARI [facility] CenterHIV 1/2 antigen/antibody, fourth generation, with reflexes 2022-02-11 22:17:00 Test Item Value Reference Range Interpretation Comments HIV NON-REACTIVE NON-REACTIVE HIV-1 antigen a nd antigen/ant HIV-1/HIV-2 ant ibodies ibody 4th were notdetecte d. There gen (test is no laborator y evidence code = of HIVinfection . PLEASE 37382-1) NOTE: This info rmation has been disclo [...] ad ditional information ple ase refer tohttp://educat ion.Krauttools.VideoClix/ faq/MIS384 (This link is b eing provided for informational/e ducational purposes only.) The performance of this assay has not been clinicallyvalid ated in patients less t lagunas 2 years old. RAC (test Performing code = RAC) Organization Information: Site ID: RGA Name: [facility] [facility] Address: [address] [place] [address] Director: Rajinder Grant [facility] CenterHSV 1 and 2 specific Ab [id number] 22:17:00 Test Item Value Reference Interpretation Comments [...] ease refer to http://educatio n.Ques tDiagnostics.co m/faq/ CIG260 (This li nk is being provided for informational/e ducati onal purposes o nly.) RAC (test code = Performing RAC) Organization Information: Site ID: IG Name: [facility] Address: [address] [place] [address] Director: Dr. Rajinder Grant Lab Interpretation Abnormal (test code = 36008-1) [facility] B surface [id number] 22:17:00 Test Item Value Reference Range Interpretation Comments Hepatitis B surface NON-REACTIVE NON-REACTIVE Ag (test code = 5196-1) RAC (test code = RAC) Performing Organization Information: Site ID: RGA Name: [facility] Address: [address] [place] [address] Director: [facility]inder Grant [facility] with reflex to [id number] 22:17:00 Test Item Value Reference Range Interpretation Comments RPR (test code = NON-REACTIVE NON-REACTIVE 20924-5) RAC (test code = Performing Organization RAC) Information: Site ID: RGA Name: [facility] Address: [address] [place] [phone] Director: Rajinder Grant [facility] C virus (HCV), quantitative [id number] 22:17:00 Test Item Value Reference Interpretation Comments Range HCV RNA, <15 NOT DETECTED NOT DETECTED quantitative PCR IU/mL (test code = 19696-6) HCV viral log <1.18 NOT DETECTED NOT DETECTED This bhupendra t was (test code = Log IU/mL performed using 22858-0) Real-Time Polym erase [employer]Reaction. Reportable Rang e: 15 IU/mL to 100,00 0,000 IU/mL(1.18 Log IU/mL to 8.00 Log IU/ mL). The analytical performance characteristics of thisassay have been determined by [employer]. Th e modifications h ave not been cleare d or approved bythe FDA. This assay has been validated pursu ant to the CLIA regulations and is used for clinic al purposes. For m ore information on this test, go to:http://educa tion. Zocere /faq/ZYF80u6(Th is link is being provided for informational/e ducat ional purposes only.) RAC (test code = Performing RAC) Organization Information: Site ID: IG Name: [facility] Address: [address] [place] [address] Director: Dr. Rajinder Grant [facility] CenterHepatitis C [id number] 22:17:00 Test Item Value Reference Interpretation Comments Range Hepatitis C Ab (test REACTIVE NON-REACTIVE A code = 97888-5) Signal/cutoff (test >11.00 See_Comment H Based o n this code = 67697-0) result, the sample will be testedf or [...] RAC) Organization Information: Site ID: RGA Name: [facility] Lab Address: [address] [place] [address] Director: Rajinder Grant Lab Interpretation Abnormal (test code = 03981-6) [facility] ServicesV type 1/2 combined Ab, [id number] 22:17:00 Test Item Value Reference Interpretation Comments Range HSV 1 IgM NEGATIVE (test code = 77482-6) HSV 2 IgM NEGATIVE REFERENCE RANG E: NEGATIVE HSV (test IgM is detectab le in serum code = from >90% of [facility] [address]-9) primary HSV inf ection. However, HSV Ig [...] performancechar acteristics have been deter mined by [employer].It has not been cleared or appr luis by FDA. This assay hasb een validated pursuant to the CLIA regulations and isused for clinical purpos es. RAC (test Performing code = Organization RAC) Information: Site ID: EZ Name: [employer], Address: [address] [place] [address] Director: Crista Camacho MD,PhD,BARI [facility] CenterHIV 1/2 antigen/antibody, fourth generation, with reflexes 2022-02-11 22:17:00 Test Item Value Reference Range Interpretation Comments HIV NON-REACTIVE NON-REACTIVE HIV-1 antigen a nd antigen/ant HIV-1/HIV-2 ant ibodies ibody 4th were notdetecte d. There gen (test is no laborator y evidence code = of HIVinfection . PLEASE 22843-6) NOTE: This info rmation has been disclo [...] ad ditional information ple ase refer tohttp://educat ion.Krauttools.VideoClix/ faq/OWF754 (This link is b eing provided for informational/e ducational purposes only.) The performance of this assay has not been clinicallyvalid ated in patients less t lagunas 2 years old. RAC (test Performing code = RAC) Organization Information: Site ID: RGA Name: [facility] Address: [address] [place] [address] Director: Rajinder Grant [facility] CenterHSV 1 and 2 specific Ab [id number] 22:17:00 Test Item Value Reference Interpretation Comments [...] ease refer to http://educatio n.Ques tDiagnostics.co m/faq/ RJX548 (This li nk is being provided for informational/e ducati onal purposes o nly.) RAC (test code = Performing RAC) Organization Information: Site ID: IG Name: [facility] Lab Address: [address] [place] [address] Director: Dr. Rajinder Grant Lab Interpretation Abnormal (test code = 80212-5) [facility] surface [id number] 22:17:00 Test Item Value Reference Range Interpretation Comments Hepatitis B surface NON-REACTIVE NON-REACTIVE Ag (test code = 5196-1) RAC (test code = RAC) Performing Organization Information: Site ID: RGA Name: [facility] Address: [address] [place] [address] Director: Rajinder Grant [facility] CenterRP with reflex to [id number] 22:17:00 Test Item Value Reference Range Interpretation Comments RPR (test code = NON-REACTIVE NON-REACTIVE 58371-0) RAC (test code = Performing Organization RAC) Information: Site ID: RGA Name: [facility] Address: [address] [place] [address] Director: Rajinder Grant [facility] C virus (HCV), quantitative [id number] 22:17:00 Test Item Value Reference Interpretation Comments Range HCV RNA, <15 NOT DETECTED NOT DETECTED quantitative PCR IU/mL (test code = 67531-5) HCV viral log <1.18 NOT DETECTED NOT DETECTED This bhupendra t was (test code = Log IU/mL performed using 43172-6) Real-Time Polym erase [employer]Reaction. Reportable Rang e: 15 IU/mL to 100,00 0,000 IU/mL(1.18 Log IU/mL to 8.00 Log IU/ mL). The analytical performance characteristics of thisassay have been determined by [employer]. Th e modifications h ave not been cleare d or approved bythe FDA. This assay has been validated pursu ant to the CLIA regulations and is used for clinic al purposes. For m ore information on this test, go to:http://educa tion. Zocere /faq/YJJ87b1(Th is link is being provided for informational/e ducat ional purposes only.) RAC (test code = Performing RAC) Organization Information: Site ID: IG Name: [facility] Address: [place] [address] Director: Dr. Rajinder Grant [facility] C [id number] 22:17:00 Test Item Value Reference Interpretation Comments Range Hepatitis C Ab (test REACTIVE NON-REACTIVE A code = 75185-4) Signal/cutoff (test >11.00 See_Comment H Based o n this code = 24876-2) result, the sample will be testedf or [...] RAC) Organization Information: Site ID: RGA Name: [facility] Address: [address] [place] [address] Director: Rajinder Grant Lab Interpretation Abnormal (test code = 94045-3) [facility] CenterHSV type 1/2 combined Ab, [id number] 22:17:00 Test Item Value Reference Interpretation Comments Range HSV 1 IgM NEGATIVE (test code = 43283-6) HSV 2 IgM NEGATIVE REFERENCE RANG E: NEGATIVE HSV (test IgM is detectab le in serum code = from >90% of [facility] [address]-9) primary HSV inf ection. However, HSV Ig [...] performancechar acteristics have been deter mined by [employer].It has not been cleared or appr luis by FDA. This assay hasb een validated pursuant to the CLIA regulations and isused for clinical purpos es. RAC (test Performing code = Organization RAC) Information: Site ID: EZ Name: [employer], Address: [address] [place] [address] Director: Crista Camacho MD,PhD,BARI [facility] CenterHIV 1/2 antigen/antibody, fourth generation, with reflexes 2022-02-11 22:17:00 Test Item Value Reference Range Interpretation Comments HIV NON-REACTIVE NON-REACTIVE HIV-1 antigen a nd antigen/ant HIV-1/HIV-2 ant ibodies ibody 4th were notdetecte d. There gen (test is no laborator y evidence code = of HIVinfection . PLEASE 05974-6) NOTE: This info rmation has been disclo [...] ad ditional information ple ase refer tohttp://educat ion.Settle/ faq/WSB751 (This link is b eing provided for informational/e ducational purposes only.) The performance of this assay has not been clinicallyvalid ated in patients less t lagunas 2 years old. RAC (test Performing code = RAC) Organization Information: Site ID: RGA Name: [facility] Address: [address] [place] [address] Director: Rajinder Grant [facility] CenterHSV 1 and 2 specific Ab [id number] 22:17:00 Test Item Value Reference Interpretation Comments [...] information, pl ease refer to http://educatio nReza tDiagnostics.[employer] m/faq/ NPJ176 (This li nk is being provided for informational/e ducati onal purposes o nly.) RAC (test code = Performing RAC) Organization Information: Site ID: TIM Name: [facility] Lab Address: [address] [place] [address] Director: Dr. Rajinder Grant Lab Interpretation Abnormal (test code = 98848-7) [facility] B surface [id number] 22:17:00 Test Item Value Reference Range Interpretation Comments Hepatitis B surface NON-REACTIVE NON-REACTIVE Ag (test code = 5196-1) RAC (test code = RAC) Performing Organization Information: Site ID: RGA Name: [facility] Address: [address] [place] [address] Director: Rajinder Grant [facility] with reflex to [id number] 22:17:00 Test Item Value Reference Range Interpretation Comments RPR (test code = NON-REACTIVE NON-REACTIVE 67556-8) RAC (test code = Performing Organization RAC) Information: Site ID: RGA Name: [facility] Address: [address] [place] [address] Director: Rajinder Grant [facility] C virus (HCV), quantitative [id number] 22:17:00 Test Item Value Reference Interpretation Comments Range HCV RNA, <15 NOT DETECTED NOT DETECTED quantitative PCR IU/mL (test code = 58934-8) HCV viral log <1.18 NOT DETECTED NOT DETECTED This bhupendra t was (test code = Log IU/mL performed using 06305-6) Real-Time Polym erase ChainReaction. Reportable Rang e: 15 IU/mL to 100,00 0,000 IU/mL(1.18 Log IU/mL to 8.00 Log IU/ mL). The analytical performance characteristics of thisassay have been determined by [employer]. Th e modifications h ave not been cleare d or approved bythe FDA. This assay has been validated pursu ant to the CLIA regulations and is used for clinic al purposes. For m ore information on this test, go to:http://educa tion. [employer] /faq/EDW79k5(Th is link is being provided for informational/e ducat ional purposes only.) RAC (test code = Performing RAC) Organization Information: Site ID: Name: [facility] Address: [address] [place] [address] Director: Dr. Rajinder Grant [facility] C [id number] 22:17:00 Test Item Value Reference Interpretation Comments Range Hepatitis C Ab (test REACTIVE NON-REACTIVE A code = 90451-1) Signal/cutoff (test >11.00 See_Comment H Based o n this code = 51843-1) result, the sample will be testedf or [...] RAC) Organization Information: Site ID: RGA Name: [facility] Lab Address: [address] [place] [address] Director: Rajinder Grant Lab Interpretation Abnormal (test code = 40071-5) [facility] type [facility]/2 combined Ab, [id number] 22:17:00 Test Item Value Reference Interpretation Comments Range HSV 1 IgM NEGATIVE (test code = 50641-1) HSV 2 IgM NEGATIVE REFERENCE RANG E: NEGATIVE HSV (test IgM is detectab le in serum code = from >90% of de tracey 83411-5) primary HSV inf ection. However, HSV Ig [...] performancechar acteristics have been deter mined by [employer].It has not been cleared or appr luis by FDA. This assay hasb een validated pursuant to the CLIA regulations and isused for clinical purpos es. RAC (test Performing code = Organization RAC) Information: Site ID: EZ Name: [employer], Address: [address] [place] [address] Director: Crista Camacho MD,PhD,BARI [facility]V 1/2 antigen/antibody, fourth generation, with reflexes 2022-02-11 22:17:00 Test Item Value Reference Range Interpretation Comments HIV NON-REACTIVE NON-REACTIVE HIV-1 antigen a nd antigen/ant HIV-1/HIV-2 ant ibodies ibody 4th were notdetecte d. There gen (test is no laborator y evidence code = of HIVinfection . PLEASE 94804-3) NOTE: This info rmation has been disclo sed toyou from records wh ose confidentiality may beprotected by state law. If your state r equires suchprotection, then the state law prohi bits you frommaking any further disclosure of t he informationwith out the specific writte n consent of the personto whom it pertains, or as otherwise permitted by rodriguez w.Rd general authori zation for the release of medical orother informa tion is NOT sufficient for this purpose. For ad ditional information ple ase refer tohttp://educat ion.[employer]/ faq/LPV041 (This link is b eing provided for informational/e ducational purposes only.) The performance of this assay has not been clinicallyvalid ated in patients less t lagunas 2 years old. RAC (test Performing code = RAC) Organization Information: Site ID: RGA Name: [facility] Address: [address] [place] [address] Director: [facility]inder [facility] CenterHSV 1 and 2 specific Ab [id number] 22:17:00 Test Item Value Reference Interpretation Comments [...] additional information, pl ease refer to http://educatio n.[employer] /faq/FA Q118 (This link is being provided for informational/e ducatio nal purposes on ly.) RAC (test code = Performing RAC) Organization Information: Site ID: IG Name: [facility] Address: [address] [place] [address] Director: Dr. Rajinder Grant Lab Interpretation Abnormal (test code = 97249-2) [facility] B surface [id number] 22:17:00 Test Item Value Reference Range Interpretation Comments Hepatitis B surface NON-REACTIVE NON-REACTIVE Ag (test code = 5196-1) RAC (test code = RAC) Performing Organization Information: Site ID: RGA Name: [facility] Address: [address] [place] [address] Director: Rajinder Grant [facility] with reflex to [id number] 22:17:00 Test Item Value Reference Range Interpretation Comments RPR (test code = NON-REACTIVE NON-REACTIVE 70272-7) RAC (test code = Performing Organization RAC) Information: Site ID: RGA Name: [facility] Address: [address] [place] [address] Director: Rajinder Grant [facility] C virus (HCV), quantitative [id number] 22:17:00 Test Item Value Reference Interpretation Comments Range HCV RNA, <15 NOT DETECTED NOT DETECTED quantitative PCR IU/mL (test code = 33663-8) HCV viral log <1.18 NOT DETECTED NOT DETECTED This bhupendra t was (test code = Log IU/mL performed using 33753-1) Real-Time Polym erase ChainReaction. Reportable Rang e: 15 IU/mL to 100,00 0,000 IU/mL(1.18 Log IU/mL to 8.00 Log IU/ mL). The analytical performance characteristics of thisassay have been determined by [employer]. Th e modifications h ave not been cleare d or approved bythe FDA. This assay has been validated pursu ant to the CLIA regulations and is used for clinic al purposes. For m ore information on this test, go to:http://I-[facility]. [employer] /faq/RBP26v0(Th is link is being provided for informational/e ducat ional purposes only.) RAC (test code = Performing RAC) Organization Information: Site ID: IG Name: [facility] Address: [address] [place] [address] Director: Dr. Rajinder Grant [facility] C [id number] 22:17:00 Test Item Value Reference Interpretation Comments Range Hepatitis C Ab (test REACTIVE NON-REACTIVE A code = 79900-9) Signal/cutoff (test >11.00 See_Comment H Based o n this code = 06827-0) result, the sample will be testedf or [...] RAC) Organization Information: Site ID: RGA Name: [facility] Address: [address] [place] [address] Director: Rajinder Grant Lab Interpretation Abnormal (test code = 72751-9) [facility]V type 1/2 combined Ab, [id number] 22:17:00 Test Item Value Reference Interpretation Comments Range HSV 1 IgM NEGATIVE (test code = 62574-9) HSV 2 IgM NEGATIVE REFERENCE RANG E: NEGATIVE HSV (test IgM is detectab le in serum code = from >90% of de tracey 58818-7) primary HSV inf ection. However, HSV Ig [...] performancechar acteristics have been deter mined by [employer].It has not been cleared or appr luis by FDA. This assay hasb een validated pursuant to the CLIA regulations and isused for clinical purpos es. RAC (test Performing code = Organization RAC) Information: Site ID: EZ Name: [employer], Address: [address] [place] [address] Director: Crista Camacho MD,PhD,BARI [facility]HIV [facility]/2 antigen/antibody, fourth generation, with reflexes 2022-02-11 22:17:00 Test Item Value Reference Range Interpretation Comments HIV NON-REACTIVE NON-REACTIVE HIV-1 antigen a nd antigen/ant HIV-1/HIV-2 ant ibodies ibody 4th were notdetecte d. There gen (test is no laborator y evidence code = of HIVinfection . PLEASE 61695-7) NOTE: This info rmation has been disclo [...] ad ditional information ple ase refer tohttp://educat ion.Settle/ faq/CNX720 (This link is b eing provided for informational/e ducational purposes only.) The performance of this assay has not been clinicallyvalid ated in patients less t lagunas 2 years old. RAC (test Performing code = RAC) Organization Information: Site ID: RGA Name: [facility] Address: [address] [place] [address] Director: Rajinder Grant [facility] CenterHSV 1 and 2 specific Ab [id number] 22:17:00 Test Item Value Reference Interpretation Comments [...] ease refer to http://educatio n.Ques tDiagnostics.co m/faq/ URK961 (This li nk is being provided for informational/e ducati onal purposes o nly.) RAC (test code = Performing RAC) Organization Information: Site ID: IG Name: [facility] Lab Address: [address] [place] [address] Director: Dr. Rajinder Grant Lab Interpretation Abnormal (test code = 17701-6) [facility]Hep[facility] surface [id number] 22:17:00 Test Item Value Reference Range Interpretation Comments Hepatitis B surface NON-REACTIVE NON-REACTIVE Ag (test code = 5196-1) RAC (test code = RAC) Performing Organization Information: Site ID: RGA Name: [facility] Address: [address] [place] [address] Director: Rajinder Grant [facility] CenterRPR with reflex to [id number] 22:17:00 Test Item Value Reference Range Interpretation Comments RPR (test code = NON-REACTIVE NON-REACTIVE 51963-5) RAC (test code = Performing Organization RAC) Information: Site ID: RGA Name: [facility] Address: [address] [place] [address] Director: Rajinder Grant [facility] C virus (HCV), quantitative [id number] 22:17:00 Test Item Value Reference Interpretation Comments Range HCV RNA, <15 NOT DETECTED NOT DETECTED quantitative PCR IU/mL (test code = 53065-3) HCV viral log <1.18 NOT DETECTED NOT DETECTED This bhupendra t was (test code = Log IU/mL performed using 09261-2) Real-Time Polym erase ChainReaction. Reportable Rang e: 15 IU/mL to 100,00 0,000 IU/mL(1.18 Log IU/mL to 8.00 Log IU/ mL). The analytical performance characteristics of thisassay have been determined by [employer]. Th e modifications h ave not been cleare d or approved bythe FDA. This assay has been validated pursu ant to the CLIA regulations and is used for clinic al purposes. For m ore information on this test, go to:http://educa tion. Zocere /faq/ETZ31x7( is link is being provided for informational/e ducat ional purposes only.) RAC (test code = Performing RAC) Organization Information: Site ID: IG Name: [facility] Address: [address] [place] [address] Director: Dr. Rajinder Grant [facility] [id number] 22:17:00 Test Item Value Reference Interpretation Comments Range Hepatitis C Ab (test REACTIVE NON-REACTIVE A code = 03408-4) Signal/cutoff (test >11.00 <=1.00 H Based o n this code = 51508-4) result, the sample will be testedf or HCV RNA by a Nucleic Acid Amplification T est (NAAT)to determ ine if the patient has a current activeinfection . RAC (test code = Performing RAC) Organization Information: Site ID: RGA Name: [facility] Lab Address: [address] [place] [address] Director: Rajinder Grant Lab Interpretation Abnormal (test code = 50346-3) [facility] CenterHSV type 1/2 combined Ab, [id number] 22:17:00 Test Item Value Reference Interpretation Comments Range HSV 1 IgM NEGATIVE (test code = 76090-6) HSV 2 IgM NEGATIVE REFERENCE RANG E: NEGATIVE HSV (test IgM is detectab le in serum code = from >90% of pa tracey 23485-3) primary HSV inf ection. However, HSV Ig [...] performancechar acteristics have been deter mined by [employer].It has not been cleared or appr luis by FDA. This assay hasb een validated pursuant to the CLIA regulations and isused for clinical purpos es. RAC (test Performing code = Organization RAC) Information: Site ID: EZ Name: [employer], Address: [address] [place] [address] Director: Crista Camacho MD,PhD,BARI [facility] CenterHIV 1/2 antigen/antibody, fourth generation, with reflexes 2022-02-11 22:17:00 Test Item Value Reference Range Interpretation Comments HIV NON-REACTIVE NON-REACTIVE HIV-1 antigen a nd antigen/ant HIV-1/HIV-2 ant ibodies ibody 4th were notdetecte d. There gen (test is no laborator y evidence code = of HIVinfection . PLEASE 17573-5) NOTE: This info rmation has been disclo [...] ad ditional information ple ase refer tohttp://educat ion.Settle/ faq/CLQ545 (This link is b eing provided for informational/e ducational purposes only.) The performance of this assay has not been clinicallyvalid ated in patients less t lagunas 2 years old. RAC (test Performing code = RAC) Organization Information: Site ID: RGA Name: [facility] Lab Address: [address] [place] [address] Director: Rajinder Grant [facility] CenterHSV 1 and 2 specific Ab [id number] 22:17:00 Test Item Value Reference Interpretation Comments [...] For additional information, pl ease refer to http://educatigiullermina Garcia tDiagnostics.co m/faq/ XSV490 (This li nk is being provided for informational/e ducati onal purposes o nly.) RAC (test code = Performing RAC) Organization Information: Site ID: IG Name: [facility] Lab Address: [address] [place] [address] Director: Dr. Rajinder Grant Lab Interpretation Abnormal (test code = 69875-2) [facility] CenterHepatitis B surface [id number] 22:17:00 Test Item Value Reference Range Interpretation Comments Hepatitis B surface NON-REACTIVE NON-REACTIVE Ag (test code = 5196-1) RAC (test code = RAC) Performing Organization Information: Site ID: RGA Name: [facility] Address: [address] [place] [address] Director: Rajinder Grant [facility] with reflex to [id number] 22:17:00 Test Item Value Reference Range Interpretation Comments RPR (test code = NON-REACTIVE NON-REACTIVE 58166-7) RAC (test code = Performing Organization RAC) Information: Site ID: RGA Name: [facility] Address: [address] [place] [address] Director: Rajinder Grant [facility] C virus (HCV), quantitative [id number] 22:17:00 Test Item Value Reference Interpretation Comments Range HCV RNA, <15 NOT DETECTED NOT DETECTED quantitative PCR IU/mL (test code = 53938-2) HCV viral log <1.18 NOT DETECTED NOT DETECTED This bhupendra t was (test code = Log IU/mL performed using 10321-9) Real-Time Polym erase ChainReaction. Reportable Rang e: 15 IU/mL to 100,00 0,000 IU/mL(1.18 Log IU/mL to 8.00 Log IU/ mL). The analytical performance characteristics of thisassay have been determined by [employer]. Th e modifications h ave not been cleare d or approved bythe FDA. This assay has been validated pursu ant to the CLIA regulations and is used for clinic al purposes. For m ore information on this test, go to:http://educa tion. Zocere /faq/UXE24d6(Th is link is being provided for informational/e ducat ional purposes only.) RAC (test code = Performing RAC) Organization Information: Site ID: IG Name: [facility] Address: [address] [place] [address] Director: Dr. Rajinder Grant [facility] C [id number] 22:17:00 Test Item Value Reference Interpretation Comments Range Hepatitis C Ab (test REACTIVE NON-REACTIVE A code = 14276-5) Signal/cutoff (test >11.00 <=1.00 H Based o n this code = 82781-6) result, the sample will be testedf or HCV RNA by a Nucleic Acid Amplification T est (NAAT)to determ ine if the patient has a current activeinfection . RAC (test code = Performing RAC) Organization Information: Site ID: RGA Name: [facility] Lab Address: [address] [place] [address] Director: Rajinder Grant Lab Interpretation Abnormal (test code = 98621-1) [facility] CenterHSV type 1/2 combined Ab, [id number] 22:17:00 Test Item Value Reference Interpretation Comments Range HSV 1 IgM NEGATIVE (test code = 41256-8) HSV 2 IgM NEGATIVE REFERENCE RANG E: NEGATIVE HSV (test IgM is detectab le in serum code = from >90% of [facility] [address]94[address]-2) primary HSV inf ection. However, HSV Ig [...] performancechar acteristics have been deter mined by [employer].It has not been cleared or appr luis by FDA. This assay hasb een validated pursuant to the CLIA regulations and isused for clinical purpos es. RAC (test Performing code = Organization RAC) Information: Site ID: EZ Name: [employer], Address: [address] [place] [address] Director: Crista Camacho MD,PhD,BARI [facility] CenterHIV 1/2 antigen/antibody, fourth generation, with reflexes 2022-02-11 22:17:00 Test Item Value Reference Range Interpretation Comments HIV NON-REACTIVE NON-REACTIVE HIV-1 antigen a nd antigen/ant HIV-1/HIV-2 ant ibodies ibody 4th were notdetecte d. There gen (test is no laborator y evidence code = of HIVinfection . PLEASE 71412-6) NOTE: This info rmation has been disclo [...] ad ditional information ple ase refer tohttp://educat ion.Settle/ faq/NFJ108 (This link is b eing provided for informational/e ducational purposes only.) The performance of this assay has not been clinicallyvalid ated in patients less t lagunas 2 years old. RAC (test Performing code = RAC) Organization Information: Site ID: RGA Name: [facility] Lab Address: [address] [place] [address] Director: [place] Girma KiddH[facility] MainlandHSV 1 and 2 specific Ab [id number] 22:17:00 Test Item Value Reference Interpretation Comments [...] additional information, pl ease refer to http://educatio n.[employer] /faq/FA Q118 (This link is being provided for informational/e ducatio nal purposes on ly.) RAC (test code = Performing RAC) Organization Information: Site ID: IG Name: [facility] Address: [address] [place] [address] Director: Dr. Rajinder Grant Lab Interpretation Abnormal (test code = 38686-8) [facility] B surface [id number] 22:17:00 Test Item Value Reference Range Interpretation Comments Hepatitis B surface NON-REACTIVE NON-REACTIVE Ag (test code = 5196-1) RAC (test code = RAC) Performing Organization Information: Site ID: RGA Name: [facility] Address: [address] [place] [address] Director: Rajinder Grant [facility]RP with reflex to [id number] 22:17:00 Test Item Value Reference Range Interpretation Comments RPR (test code = NON-REACTIVE NON-REACTIVE 68926-6) RAC (test code = Performing Organization RAC) Information: Site ID: RGA Name: [facility] Address: [address] [place] [address] Director: Rajinder Grant [facility] C virus (HCV), quantitative [id number] 22:17:00 Test Item Value Reference Interpretation Comments Range HCV RNA, <15 NOT DETECTED NOT DETECTED quantitative PCR IU/mL (test code = 75724-5) HCV viral log <1.18 NOT DETECTED NOT DETECTED This bhupendra t was (test code = Log IU/mL performed using 61925-8) Real-Time Polym erase ChainReaction. Reportable Rang e: 15 IU/mL to 100,00 0,000 IU/mL(1.18 Log IU/mL to 8.00 Log IU/ mL). The analytical performance characteristics of thisassay have been determined by [employer]. Th e modifications h ave not been cleare d or approved bythe FDA. This assay has been validated pursu ant to the CLIA regulations and is used for clinic al purposes. For m ore information on this test, go to:http://educa tion. Zocere /faq/ADJ38g0(Th is link is being provided for informational/e ducat ional purposes only.) RAC (test code = Performing RAC) Organization Information: Site ID: IG Name: [facility] Address: [address] [place] [address] Director: Dr. Rajinder Grant [facility] CenterHep[facility] C [id number] 22:17:00 Test Item Value Reference Interpretation Comments Range Hepatitis C Ab (test REACTIVE NON-REACTIVE A code = 40732-2) Signal/cutoff (test >11.00 <=1.00 H Based o n this code = 56597-7) result, the sample will be testedf or HCV RNA by a Nucleic Acid Amplification T est (NAAT)to determ ine if the patient has a current activeinfection . RAC (test code = Performing RAC) Organization Information: Site ID: RGA Name: [facility] Lab Address: [address] [place] [address] Director: Rajinder Grant Lab Interpretation Abnormal (test code = 79048-1) [facility]V type [facility]/2 combined Ab, [id number] 22:17:00 Test Item Value Reference Interpretation Comments Range HSV 1 IgM NEGATIVE (test code = 06842-2) HSV 2 IgM NEGATIVE REFERENCE RANG E: NEGATIVE HSV (test IgM is detectab le in serum code = from >90% of [place] 33803-1) primary HSV inf ection. However, HSV Ig [...] performancechar acteristics have been deter mined by [employer].It has not been cleared or appr luis by FDA. This assay hasb een validated pursuant to the CLIA regulations and isused for clinical purpos es. RAC (test Performing code = Organization RAC) Information: Site ID: EZ Name: [employer], Address: [address] [place] [address] Director: Crista Camacho MD,PhD,BARI [facility] CenterHIV 1/2 antigen/antibody, fourth generation, with reflexes 2022-02-11 22:17:00 Test Item Value Reference Range Interpretation Comments HIV NON-REACTIVE NON-REACTIVE HIV-1 antigen a nd antigen/ant HIV-1/HIV-2 ant ibodies ibody 4th were notdetecte d. There gen (test is no laborator y evidence code = of HIVinfection . PLEASE 13394-6) NOTE: This info rmation has been disclo sed toyou from records wh ose confidentiality may beprotected by state law. If your state r equires suchprotection, then the state law prohi bits you frommaking any further disclosure of t he informationwith out the specific writte n consent of the personto whom it pertains, or as otherwise permitted by rodriguez w.Rd general authori zation for the release of medical orother informa tion is NOT sufficient for this purpose. For ad ditional information ple ase refer tohttp://educat ion.Krauttools.VideoClix/ faq/CUD752 (This link is b eing provided for informational/e ducational purposes only.) The performance of this assay has not been clinicallyvalid ated in patients less t lagunas 2 years old. RAC (test Performing code = RAC) Organization Information: Site ID: RGA Name: [facility] Address: [address] [place] [address] Director: Rajinder Grant [facility]HS[facility] 1 and 2 specific Ab [id number] 22:17:00 Test Item Value Reference Interpretation Comments [...] ease refer to http://educatio n.Ques tDiagnostics.co m/faq/ DMO453 (This li nk is being provided for informational/e ducati onal purposes o nly.) RAC (test code = Performing RAC) Organization Information: Site ID: IG Name: [facility] Address: [address] [place] [address] Director: Dr. Rajinder Grant Lab Interpretation Abnormal (test code = 76433-1) [facility] B surface [id number] 22:17:00 Test Item Value Reference Range Interpretation Comments Hepatitis B surface NON-REACTIVE NON-REACTIVE Ag (test code = 5196-1) RAC (test code = RAC) Performing Organization Information: Site ID: RGA Name: [facility] Address: [address] [place] [address] Director: Rajinder Grant [facility] CenterRP with reflex to [id number] 22:17:00 Test Item Value Reference Range Interpretation Comments RPR (test code = NON-REACTIVE NON-REACTIVE 39380-3) RAC (test code = Performing Organization RAC) Information: Site ID: RGA Name: [facility] Address: [address] [place] [address] Director: Rajinder Grant [facility] C virus (HCV), quantitative [id number] 22:17:00 Test Item Value Reference Interpretation Comments Range HCV RNA, <15 NOT DETECTED NOT DETECTED quantitative PCR IU/mL (test code = 00121-0) HCV viral log <1.18 NOT DETECTED NOT DETECTED This bhupendra t was (test code = Log IU/mL performed using 58808-8) Real-Time Polym erase ChainReaction. Reportable Rang e: 15 IU/mL to 100,00 0,000 IU/mL(1.18 Log IU/mL to 8.00 Log IU/ mL). The analytical performance characteristics of thisassay have been determined by [employer]. Th e modifications h ave not been cleare d or approved bythe FDA. This assay has been validated pursu ant to the CLIA regulations and is used for clinic al purposes. For m ore information on this test, go to:http://I-Marketa [facility]. Zocere /faq/JJS39u4(Th is link is being provided for informational/e ducat ional purposes only.) RAC (test code = Performing RAC) Organization Information: Site ID: IG Name: [facility] Address: [address] [place] [address] Director: Dr. Rajinder Grant [facility] C [id number] 22:17:00 Test Item Value Reference Interpretation Comments Range Hepatitis C Ab (test REACTIVE NON-REACTIVE A code = 18872-9) Signal/cutoff (test >11.00 <=1.00 H Based o n this code = 69574-7) result, the sample will be testedf or HCV RNA by a Nucleic Acid Amplification T est (NAAT)to determ ine if the patient has a current activeinfection . RAC (test code = Performing RAC) Organization Information: Site ID: RGA Name: [facility] Lab Address: [address] [place] [address] Director: Rajinder Grant Lab Interpretation Abnormal (test code = 64684-9) [facility] CenterHSV type 1/2 combined Ab, [id number] 22:17:00 Test Item Value Reference Interpretation Comments Range HSV 1 IgM NEGATIVE (test code = 10714-0) HSV 2 IgM NEGATIVE REFERENCE RANG E: NEGATIVE HSV (test IgM is detectab le in serum code = from >90% of de tracey 33921-2) primary HSV inf ection. However, HSV Ig [...] performancechar acteristics have been deter mined by [employer].It has not been cleared or appr luis by FDA. This assay hasb een validated pursuant to the CLIA regulations and isused for clinical purpos es. RAC (test Performing code = Organization RAC) Information: Site ID: EZ Name: [employer], Address: [address] [place] [address] Director: Crista Camacho MD,PhD,BARI [facility] CenterHIV 1/2 antigen/antibody, fourth generation, with reflexes 2022-02-11 22:17:00 Test Item Value Reference Range Interpretation Comments HIV NON-REACTIVE NON-REACTIVE HIV-1 antigen a nd antigen/ant HIV-1/HIV-2 ant ibodies ibody 4th were notdetecte d. There gen (test is no laborator y evidence code = of HIVinfection . PLEASE 45415-1) NOTE: This info rmation has been disclo [...] ad ditional information ple ase refer tohttp://educat ion.Krauttools.VideoClix/ faq/OSY989 (This link is b eing provided for informational/e ducational purposes only.) The performance of this assay has not been clinicallyvalid ated in patients less t lagunas 2 years old. RAC (test Performing code = RAC) Organization Information: Site ID: RGA Name: [facility] Address: [address] [place] [address] Director: Rajinder Parker [facility]HS[facility] and 2 specific Ab [id number] 22:17:00 Test Item Value Reference Interpretation Comments [...] ease refer to http://educatio n.Ques tDiagnostics.co m/faq/ TXV651 (This li nk is being provided for informational/e ducati onal purposes o nly.) RAC (test code = Performing RAC) Organization Information: Site ID: IG Name: [facility] Address: [address] [place] [address] Director: Dr. Rajinder Grant Lab Interpretation Abnormal (test code = 42251-4) [facility] [id number] 22:17:00 Test Item Value Reference Range Interpretation Comments Hepatitis B surface NON-REACTIVE NON-REACTIVE Ag (test code = 5196-1) RAC (test code = RAC) Performing Organization Information: Site ID: RGA Name: [facility] Address: [address] [place] [address] Director: Rajinder Grant [facility] CenterRPR with reflex to [id number] 22:17:00 Test Item Value Reference Range Interpretation Comments RPR (test code = NON-REACTIVE NON-REACTIVE 02248-3) RAC (test code = Performing Organization RAC) Information: Site ID: RGA Name: [facility] Address: [address] [place] [address] Director: Rajinder Grant [facility] C virus (HCV), quantitative [id number] 22:17:00 Test Item Value Reference Interpretation Comments Range HCV RNA, <15 NOT DETECTED NOT DETECTED quantitative PCR IU/mL (test code = 78513-3) HCV viral log <1.18 NOT DETECTED NOT DETECTED This bhupendra t was (test code = Log IU/mL performed using 40227-4) Real-Time Polym erase ChainReaction. Reportable Rang e: 15 IU/mL to 100,00 0,000 IU/mL(1.18 Log IU/mL to 8.00 Log IU/ mL). The analytical performance characteristics of thisassay have been determined by [employer]. Th e modifications h ave not been cleare d or approved bythe FDA. This assay has been validated pursu ant to the CLIA regulations and is used for clinic al purposes. For m ore information on this test, go to:http://I-Marketa Oyster.comon. Zocere /faq/XUH55k2(Th is link is being provided for informational/e ducat ional purposes only.) RAC (test code = Performing RAC) Organization Information: Site ID: IG Name: [facility] Address: [address] [place] [address] Director: Dr. Rajinder Grant [facility] C [id number] 22:17:00 Test Item Value Reference Interpretation Comments Range Hepatitis C Ab (test REACTIVE NON-REACTIVE A code = 13028-2) Signal/cutoff (test >11.00 <=1.00 H Based o n this code = 80873-6) result, the sample will be testedf or HCV RNA by a Nucleic Acid Amplification T est (NAAT)to determ ine if the patient has a current activeinfection . RAC (test code = Performing RAC) Organization Information: Site ID: RGA Name: [facility] Lab Address: [address] [place] [address] Director: Rajinder Grant Lab Interpretation Abnormal (test code = 28908-0) [facility] CenterHSV [facility] 1/2 combined Ab, [id number] 22:17:00 Test Item Value Reference Interpretation Comments Range HSV 1 IgM NEGATIVE (test code = 69444-8) HSV 2 IgM NEGATIVE REFERENCE RANG E: NEGATIVE HSV (test IgM is detectab le in serum code = from >90% of pa tracey 86984-4) primary HSV inf ection. However, HSV Ig [...] performancechar acteristics have been deter mined by [employer].It has not been cleared or appr luis by FDA. This assay hasb een validated pursuant to the CLIA regulations and isused for clinical purpos es. RAC (test Performing code = Organization RAC) Information: Site ID: EZ Name: [employer], Address: [address] [place] [address] Director: Crista Camacho MD,PhD,BARI [facility] HospitalHIV 1/2 antigen/antibody, fourth generation, with reflexes 2022-02-11 22:17:00 Test Item Value Reference Range Interpretation Comments HIV NON-REACTIVE NON-REACTIVE HIV-1 antigen a nd antigen/ant HIV-1/HIV-2 ant ibodies ibody 4th were notdetecte d. There gen (test is no laborator y evidence code = of HIVinfection . PLEASE 27714-0) NOTE: This info rmation has been disclo [...] ad ditional information ple ase refer tohttp://educat ion.Settle/ faq/FYI658 (This link is b eing provided for informational/e ducational purposes only.) The performance of this assay has not been clinicallyvalid ated in patients less t lagunas 2 years old. RAC (test Performing code = RAC) Organization Information: Site ID: RGA Name: [facility] Address: [address] [place] [address] Director: Rajinder Grant [facility] CenterHSV 1 and 2 specific Ab [id number] 22:17:00 Test Item Value Reference Interpretation Comments [...] ease refer to http://educatio n.Tri tDiagnostics.co m/faq/ BTL006 (This li nk is being provided for informational/e ducati onal purposes o nly.) RAC (test code = Performing RAC) Organization Information: Site ID: IG Name: [employer] [facility] [employer] Lab Address: [address] [place] [address] Director: Dr. Rajinder Grant Lab Interpretation Abnormal (test code = 62977-8) [facility] CenterHep[facility] surface [id number] 22:17:00 Test Item Value Reference Range Interpretation Comments Hepatitis B surface NON-REACTIVE NON-REACTIVE Ag (test code = 5196-1) RAC (test code = RAC) Performing Organization Information: Site ID: RGA Name: [facility] Address: [address] [place] [address] Director: Rajinder Grant [facility] CenterRPR with reflex to [id number] 22:17:00 Test Item Value Reference Range Interpretation Comments RPR (test code = NON-REACTIVE NON-REACTIVE 05516-9) RAC (test code = Performing Organization RAC) Information: Site ID: RGA Name: [facility] Address: [address] [place] [address] Director: Rajinder Grant [facility] C virus (HCV), quantitative [id number] 22:17:00 Test Item Value Reference Interpretation Comments Range HCV RNA, <15 NOT DETECTED NOT DETECTED quantitative PCR IU/mL (test code = 19710-2) HCV viral log <1.18 NOT DETECTED NOT DETECTED This bhupendra t was (test code = Log IU/mL performed using 54406-1) Real-Time Polym erase ChainReaction. Reportable Rang e: 15 IU/mL to 100,00 0,000 IU/mL(1.18 Log IU/mL to 8.00 Log IU/ mL). The analytical performance characteristics of thisassay have been determined by [employer]. Th e modifications h ave not been cleare d or approved bythe FDA. This assay has been validated pursu ant to the CLIA regulations and is used for clinic al purposes. For m ore information on this test, go to:http://educa tion. Zocere /faq/BVP09o5(Th is link is being provided for informational/e ducat ional purposes only.) RAC (test code = Performing RAC) Organization Information: Site ID: IG Name: [facility] Address: [address] [place] [address] Director: Dr. Rajinder Grant [facility] C [id number] 22:17:00 Test Item Value Reference Interpretation Comments Range Hepatitis C Ab (test REACTIVE NON-REACTIVE A code = 24176-2) Signal/cutoff (test >11.00 See_Comment H Based o n this code = 44090-7) result, the sample will be testedf or [...] RAC) Organization Information: Site ID: RGA Name: [facility] Lab Address: [address] [place] [address] Director: Rajinder Grant Lab Interpretation Abnormal (test code = 42663-2) [facility] CenterHSV type 1/2 combined Ab, [id number] 22:17:00 Test Item Value Reference Interpretation Comments Range HSV 1 IgM NEGATIVE (test code = 43833-1) HSV 2 IgM NEGATIVE REFERENCE RANG E: NEGATIVE HSV (test IgM is detectab le in serum code = from >90% of [facility] 28911-6) primary HSV inf ection. However, HSV Ig [...] performancechar acteristics have been deter mined by [employer].It has not been cleared or appr luis by FDA. This assay hasb een validated pursuant to the CLIA regulations and isused for clinical purpos es. RAC (test Performing code = Organization RAC) Information: Site ID: EZ Name: [employer], Address: [address] [place] [address] Director: Crista Camacho MD,PhD,BRAI [facility] CenterHIV 1/2 antigen/antibody, fourth generation, with reflexes 2022-02-11 22:17:00 Test Item Value Reference Range Interpretation Comments HIV NON-REACTIVE NON-REACTIVE HIV-1 antigen a nd antigen/ant HIV-1/HIV-2 ant ibodies ibody 4th were papadetevero knight There gen (test is no laborator y evidence code = of HIVinfection . PLEASE 50137-1) NOTE: This info rmation has been disclo [...] ad ditional information ple ase refer tohttp://educat ion.Settle/ faq/CZN594 (This link is b eing provided for informational/e ducational purposes only.) The performance of this assay has not been clinicallyvalid ated in patients less t lagunas 2 years old. RAC (test Performing code = RAC) Organization Information: Site ID: RGA Name: [facility] Address: [address] [place] [address] Director: Rajinder Girma Grant [facility] CenterHSV 1 and 2 specific Ab [id number] 22:17:00 Test Item Value Reference Interpretation Comments [...] ease refer to http://educatio n.Ques tDiagnostics.co m/faq/ RFO163 (This li nk is being provided for informational/e ducati onal purposes o nly.) RAC (test code = Performing RAC) Organization Information: Site ID: IG Name: [facility] Lab Address: [address] [place] [address] Director: Dr. Rajnider Grant Lab Interpretation Abnormal (test code = 26536-3) [facility] B surface [id number] 22:17:00 Test Item Value Reference Range Interpretation Comments Hepatitis B surface NON-REACTIVE NON-REACTIVE Ag (test code = 5196-1) RAC (test code = RAC) Performing Organization Information: Site ID: RGA Name: [facility] Address: [address] [place] [address] Director: Rajinder Grant [facility] CenterRP with reflex to [id number] 22:17:00 Test Item Value Reference Range Interpretation Comments RPR (test code = NON-REACTIVE NON-REACTIVE 77875-7) RAC (test code = Performing Organization RAC) Information: Site ID: RGA Name: [facility] Address: [address] [place] [address] Director: Rajinder Grant [facility] C virus (HCV), quantitative [id number] 22:17:00 Test Item Value Reference Interpretation Comments Range HCV RNA, <15 NOT DETECTED NOT DETECTED quantitative PCR IU/mL (test code = 75690-8) HCV viral log <1.18 NOT DETECTED NOT DETECTED This bhupendra t was (test code = Log IU/mL performed using 47564-6) Real-Time Polym erase ChainReaction. Reportable Rang e: 15 IU/mL to 100,00 0,000 IU/mL(1.18 Log IU/mL to 8.00 Log IU/ mL). The analytical performance characteristics of thisassay have been determined by [employer]. Th e modifications h ave not been cleare d or approved bythe FDA. This assay has been validated pursu ant to the CLIA regulations and is used for clinic al purposes. For m ore information on this test, go to:http://educa tion. Zocere /faq/LTG68g5(Th is link is being provided for informational/e ducat ional purposes only.) RAC (test code = Performing RAC) Organization Information: Site ID: IG Name: [facility] Address: [address] [place] [address] Director: Dr. Rajinder Grant [facility] CenterHep[facility] C [id number] 22:17:00 Test Item Value Reference Interpretation Comments Range Hepatitis C Ab (test REACTIVE NON-REACTIVE A code = 98917-6) Signal/cutoff (test >11.00 See_Comment H Based o n this code = 04574-0) result, the sample will be testedf or [...] RAC) Organization Information: Site ID: RGA [facility]: [facility] Address: [address] [place] [address] Director: Rajinder Grant Lab Interpretation Abnormal (test code = 52784-6) [facility]2 combined Ab, [id number] 22:17:00 Test Item Value Reference Interpretation Comments Range HSV 1 IgM NEGATIVE (test code = 40832-2) HSV 2 IgM NEGATIVE REFERENCE RANG E: NEGATIVE HSV (test IgM is detectab le in serum code = from >90% of [facility] 14319-4) primary HSV inf ection. However, HSV Ig [...] performancechar acteristics have been deter mined by [employer].It has not been cleared or appr luis by FDA. This assay hasb een validated pursuant to the CLIA regulations and isused for clinical purpos es. RAC (test Performing code = Organization RAC) Information: Site ID: EZ Name: [employer], Address: [address] [place] [address] Director: Crista Camacho MD,PhD,BARI [facility] CenterHIV 1/2 antigen/antibody, fourth generation, with reflexes 2022-02-11 22:17:00 Test Item Value Reference Range Interpretation Comments HIV NON-REACTIVE NON-REACTIVE HIV-1 antigen a nd antigen/ant HIV-1/HIV-2 ant ibodies ibody 4th were notdetecte d. There gen (test is no laborator y evidence code = of HIVinfection . PLEASE 30391-3) NOTE: This info rmation has been disclo [...] ad ditional information ple ase refer tohttp://educat ion.Krauttools.VideoClix/ faq/KMU965 (This link is b eing provided for informational/e ducational purposes only.) The performance of this assay has not been clinicallyvalid ated in patients less t lagunas 2 years old. RAC (test Performing code = RAC) Organization Information: Site ID: RGA Name: [facility] Address: [address] [place] [address] Director: Rajinder Grant [facility] CenterHSV 1 and 2 specific Ab [id number] 22:17:00 Test Item Value Reference Interpretation Comments [...] ease refer to http://educatio n.Ques tDiagnostics.co m/faq/ SRZ109 (This li nk is being provided for informational/e ducati onal purposes o nly.) RAC (test code = Performing RAC) Organization Information: Site ID: IG Name: [facility] Address: [address] [place] [address] Director: Dr. Rajinder Grant Lab Interpretation Abnormal (test code = 10314-6) [facility] B surface [id number] 22:17:00 Test Item Value Reference Range Interpretation Comments Hepatitis B surface NON-REACTIVE NON-REACTIVE Ag (test code = 5196-1) RAC (test code = RAC) Performing Organization Information: Site ID: RGA Name: [facility] Address: [address] [place] [address] Director: Rajinder Parker [facility] HospitalRPR with reflex to [id number] 22:17:00 Test Item Value Reference Range Interpretation Comments RPR (test code = NON-REACTIVE NON-REACTIVE 47202-5) RAC (test code = Performing Organization RAC) Information: Site ID: RGA Name: [facility] Address: [address] [place] [address] Director: Rajinder Grant [facility] C virus (HCV), quantitative [id number] 22:17:00 Test Item Value Reference Interpretation Comments Range HCV RNA, <15 NOT DETECTED NOT DETECTED quantitative PCR IU/mL (test code = 42279-8) HCV viral log <1.18 NOT DETECTED NOT DETECTED This bhupendra t was (test code = Log IU/mL performed using 34388-4) Real-Time Polym erase ChainReaction. Reportable Rang e: 15 IU/mL to 100,00 0,000 IU/mL(1.18 Log IU/mL to 8.00 Log IU/ mL). The analytical performance characteristics of thisassay have been determined by [employer]. Th e modifications h ave not been cleare d or approved bythe FDA. This assay has been validated pursu ant to the CLIA regulations and is used for clinic al purposes. For m ore information on this test, go to:http://educa tion. Zocere /faq/GMG11n7(Th is link is being provided for informational/e ducat ional purposes only.) RAC (test code = Performing RAC) Organization Information: Site ID: IG Name: [facility] Address: [address] [place] [address] Director: Dr. Rajinder Grant [facility] CenterHepatico[facility] C [id number] 22:17:00 Test Item Value Reference Interpretation Comments Range Hepatitis C Ab (test REACTIVE NON-REACTIVE A code = 54330-8) Signal/cutoff (test >11.00 See_Comment H Based o n this code = 36783-0) result, the sample will be testedf or [...] RAC) Organization Information: Site ID: RGA Name: [facility] Lab Address: [address] [place] [address] Director: Rajinder Grant Lab Interpretation Abnormal (test code = 08582-5) [facility]HSV [facility] 1/2 combined Ab, [id number] 22:17:00 Test Item Value Reference Interpretation Comments Range HSV 1 IgM NEGATIVE (test code = 31964-0) HSV 2 IgM NEGATIVE REFERENCE RANG E: NEGATIVE HSV (test IgM is detectab le in serum code = from >90% of de tracey 75543-3) primary HSV inf ection. However, HSV Ig [...] performancechar acteristics have been deter mined by [employer].It has not been cleared or appr luis by FDA. This assay hasb een validated pursuant to the CLIA regulations and isused for clinical purpos es. RAC (test Performing code = Organization RAC) Information: Site ID: EZ Name: [employer], Address: [address] [place] [address] Director: Crista Camacho MD,PhD,BARI [facility] HospitalHIV 1/2 antigen/antibody, fourth generation, with reflexes 2022-02-11 22:17:00 Test Item Value Reference Range Interpretation Comments HIV NON-REACTIVE NON-REACTIVE HIV-1 antigen a nd antigen/ant HIV-1/HIV-2 ant ibodies ibody 4th were notdetecte d. There gen (test is no laborator y evidence code = of HIVinfection . PLEASE 73534-6) NOTE: This info rmation has been disclo [...] ad ditional information ple ase refer tohttp://educat ion.Krauttools.VideoClix/ faq/HDY100 (This link is b eing provided for informational/e ducational purposes only.) The performance of this assay has not been clinicallyvalid ated in patients less t lagunas 2 years old. RAC (test Performing code = RAC) Organization Information: Site ID: RGA Name: [facility] Address: [address] [place] [address] Director: Rajinder Grant [facility] CenterHSV 1 and 2 specific Ab [id number] 22:17:00 Test Item Value Reference Interpretation Comments [...] additional information, pl ease refer to http://educatio n.[employer].com /faq/FA Q118 (This link is being provided for informational/e ducatio nal purposes on ly.) RAC (test code = Performing RAC) Organization Information: Site ID: IG [facility]: [facility] Address: [address] [place] [address] Director: Dr. Rajinder Grant Lab Interpretation Abnormal (test code = 71665-1) [facility] [id number] 22:17:00 Test Item Value Reference Range Interpretation Comments Hepatitis B surface NON-REACTIVE NON-REACTIVE Ag (test code = 5196-1) RAC (test code = RAC) Performing Organization Information: Site ID: RGA [facility]: [facility] Address: [address] [place] [address] Director: Rajinder Grant [facility] with reflex to [id number] 22:17:00 Test Item Value Reference Range Interpretation Comments RPR (test code = NON-REACTIVE NON-REACTIVE 82496-9) RAC (test code = Performing Organization RAC) Information: Site ID: BEBA [facility]: [facility] Address: [address] [place] [address] Director: Rajinder Grant [facility] C virus (HCV), quantitative [id number] 22:17:00 Test Item Value Reference Interpretation Comments Range HCV RNA, <15 NOT DETECTED NOT DETECTED quantitative PCR IU/mL (test code = 66052-4) HCV viral log <1.18 NOT DETECTED NOT DETECTED This bhupendra t was (test code = Log IU/mL performed using 11312-2) Real-Time Polym erase ChainReaction. Reportable Rang e: 15 IU/mL to 100,00 0,000 IU/mL(1.18 Log IU/mL to 8.00 Log IU/ mL). The analytical performance characteristics of thisassay have been determined by [employer]. Th e modifications h ave not been cleare d or approved bythe FDA. This assay has been validated pursu ant to the CLIA regulations and is used for clinic al purposes. For m ore information on this test, go to:http://educa tion. Zocere /faq/AFZ84x6( is link is being provided for informational/e ducat ional purposes only.) RAC (test code = Performing RAC) Organization Information: Site ID: IG [facility]: [facility] Address: [address] [place] [phone] Director: Dr. Rajinder Grant [facility] C [id number] 22:17:00 Test Item Value Reference Interpretation Comments Range Hepatitis C Ab (test REACTIVE NON-REACTIVE A code = 23535-1) Signal/cutoff (test >11.00 <=1.00 H Based o n this code = 11130-0) result, the sample will be testedf or HCV RNA by a Nucleic Acid Amplification T est (NAAT)to determ ine if the patient has a current activeinfection . RAC (test code = Performing RAC) Organization Information: Site ID: RGA Name: [facility] Address: [address] [place] [address] Director: Rajinder Grant Lab Interpretation Abnormal (test code = 58859-8) [facility]2 combined Ab, [id number] 22:17:00 Test Item Value Reference Interpretation Comments Range HSV 1 IgM NEGATIVE (test code = 59666-8) HSV 2 IgM NEGATIVE REFERENCE RANG E: NEGATIVE HSV (test IgM is detectab le in serum code = from >90% of pa tracey 33660-0) primary HSV inf ection. However, HSV Ig [...] performancechar acteristics have been deter mined by [employer].It has not been cleared or appr luis by FDA. This assay hasb een validated pursuant to the CLIA regulations and isused for clinical purpos es. RAC (test Performing code = Organization RAC) Information: Site ID: EZ Name: [facility], Address: [address] [place] [address] Director: Crista Camacho MD,PhD,BARI [facility] CenterHIV 1/2 antigen/antibody, fourth generation, with reflexes 2022-02-11 22:17:00 Test Item Value Reference Range Interpretation Comments HIV NON-REACTIVE NON-REACTIVE HIV-1 antigen a nd antigen/ant HIV-1/HIV-2 ant ibodies ibody 4th were notdetecte d. There gen (test is no laborator y evidence code = of HIVinfection . PLEASE 49309-2) NOTE: This info rmation has been disclo [...] ad ditional information ple ase refer tohttp://educat ion.Settle/ faq/HPE309 (This link is b eing provided for informational/e ducational purposes only.) The performance of this assay has not been clinicallyvalid ated in patients less t lgaunas 2 years old. RAC (test Performing code = RAC) Organization Information: Site ID: RGA [facility]: [facility] Address: [address] [place] [address] Director: Rajinder Grant [facility] CenterHSV 1 and 2 specific Ab [id number] 22:17:00 Test Item Value Reference Interpretation Comments [...] information, pl ease refer to http://educatio n.Tri tDiagnostics.[employer] m/faq/ UMV562 (This li nk is being provided for informational/e ducati onal purposes o nly.) RAC (test code = Performing RAC) Organization Information: Site ID: IG Name: [facility] Address: [address] [place] [address] Director: Dr. Rajinder Grant Lab Interpretation Abnormal (test code = 33123-3) [facility] surface [id number] 22:17:00 Test Item Value Reference Range Interpretation Comments Hepatitis B surface NON-REACTIVE NON-REACTIVE Ag (test code = 5196-1) RAC (test code = RAC) Performing Organization Information: Site ID: RGA [facility]: [facility] Address: [address] [place] [address] Director: Rajinder Grant [facility] CenterRPR with reflex to [id number] 22:17:00 Test Item Value Reference Range Interpretation Comments RPR (test code = NON-REACTIVE NON-REACTIVE 01000-8) RAC (test code = Performing Organization RAC) Information: Site ID: RGA [facility]: [facility] Address: [address] [place] [address] Director: [facility]inder Grant [facility] ([facility]CV), quantitative [id number] 22:17:00 Test Item Value Reference Interpretation Comments Range HCV RNA, <15 NOT DETECTED NOT DETECTED quantitative PCR IU/mL (test code = 38582-2) HCV viral log <1.18 NOT DETECTED NOT DETECTED This bhupendra t was (test code = Log IU/mL performed using 74356-6) Real-Time Polym erase ChainReaction. Reportable Rang e: 15 IU/mL to 100,00 0,000 IU/mL(1.18 Log IU/mL to 8.00 Log IU/ mL). The analytical performance characteristics of thisassay have been determined by [employer]. Th e modifications h ave not been cleare d or approved bythe FDA. This assay has been validated pursu ant to the CLIA regulations and is used for clinic al purposes. For m ore information on this test, go to:http://educa tion. Zocere /faq/XDV71r3(Th is link is being provided for informational/e ducat ional purposes only.) RAC (test code = Performing RAC) Organization Information: Site ID: IG [facility]: [facility] Address: [address] [place] [address] Director: Dr. Rajinder Grant [facility] C [id number] 22:17:00 Test Item Value Reference Interpretation Comments Range Hepatitis C Ab (test REACTIVE NON-REACTIVE A code = 83942-2) Signal/cutoff (test >11.00 <=1.00 H Based o n this code = 78554-3) result, the sample will be testedf or HCV RNA by a Nucleic Acid Amplification T est (NAAT)to determ ine if the patient has a current activeinfection . RAC (test code = Performing RAC) Organization Information: Site ID: RGA Name: [facility] Address: [address] [place] [address] Director: Rajinder Grant Lab Interpretation Abnormal (test code = 80028-8) [facility] CenterHSV [facility] 1/2 combined Ab, [id number] 22:17:00 Test Item Value Reference Interpretation Comments Range HSV 1 IgM NEGATIVE (test code = 45139-2) HSV 2 IgM NEGATIVE REFERENCE RANG E: NEGATIVE HSV (test IgM is detectab le in serum code = from >90% of [facility] 16935-3) primary HSV inf ection. However, HSV Ig [...] performancechar acteristics have been deter mined by [employer].It has not been cleared or appr luis by FDA. This assay hasb een validated pursuant to the CLIA regulations and isused for clinical purpos es. RAC (test Performing code = Organization RAC) Information: Site ID: EZ Name: [facility], Address: [address] [place] [address] Director: Crista Camacho MD,PhD,BARI [facility] CenterHIV 1/2 antigen/antibody, fourth generation, with reflexes 2022-02-11 22:17:00 Test Item Value Reference Range Interpretation Comments HIV NON-REACTIVE NON-REACTIVE HIV-1 antigen a nd antigen/ant HIV-1/HIV-2 ant ibodies ibody 4th were notdetecte d. There gen (test is no laborator y evidence code = of HIVinfection . PLEASE 70289-1) NOTE: This info rmation has been disclo [...] ad ditional information ple ase refer tohttp://educat ion.Settle/ faq/JVD799 (This link is b eing provided for informational/e ducational purposes only.) The performance of this assay has not been clinicallyvalid ated in patients less t lagunas 2 years old. RAC (test Performing code = RAC) Organization Information: Site ID: RGA [facility]: [facility] Address: [address] [place] [address] Director: Rajinder Grant [facility] CenterHSV 1 and 2 specific Ab [id number] 22:17:00 Test Item Value Reference Interpretation Comments [...] ease refer to http://educatio n.Ques tDiagnostics.co m/faq/ GVQ855 (This li nk is being provided for informational/e ducati onal purposes o nly.) RAC (test code = Performing RAC) Organization Information: Site ID: IG Name: [facility] Address: [address] [place] [address] Director: Dr. Rajinder Grant Lab Interpretation Abnormal (test code = 98705-0) [facility] [id number] 15:02:28 Test Item Value Reference Range Interpretation Comments Case number (test code = [id number]) Surgical pathology See link below for report (test code = PDF Lab Report 2255) Result status (test code This is Final Report = [id number]) for [address] pathology [id number] 15:02:28 Test Item Value Reference Range Interpretation Comments Case number (test code = [id number]) Surgical pathology See link below for report (test code = PDF Lab Report 2255) Result status (test code This is Final Report = [id number]) for [id number] [facility] [id number] 15:02:28 Test Item Value Reference Range Interpretation Comments Case number (test code = [id number]) Surgical pathology See link below for report (test code = PDF Lab Report 2255) Result status (test code This is Final Report = 5740461) for [id number] [facility] [id number] 15:02:28 Test Item Value Reference Range Interpretation Comments Case number (test code = [id number]) Surgical pathology See link below for report (test code = PDF Lab Report 2255) Result status (test code This is Final Report = 8398522) for [id number] [facility] [id number] 15:02:28 Test Item Value Reference Range Interpretation Comments Case number (test code = [id number]) Surgical pathology See link below for report (test code = PDF Lab Report 2255) Result status (test code This is Final Report = 6180479) [address] [id number] 15:02:28 Test Item Value Reference Range Interpretation Comments Case number (test code = [id number]) Surgical pathology See link below for report (test code = PDF Lab Report 2255) Result status (test code This is Final Report = 6973369) for [address] pathology [id number] 15:02:28 Test Item Value Reference Range Interpretation Comments Case number (test code = [id number]) Surgical pathology See link below for report (test code = PDF Lab Report 2255) Result status (test code This is Final Report = 0884438) for [address] pathology [id number] 15:02:28 Test Item Value Reference Range Interpretation Comments Case number (test code = [id number]) Surgical pathology See link below for report (test code = PDF Lab Report 2255) Result status (test code This is Final Report = 9241674) for [address] pathology [id number] 15:02:28 Test Item Value Reference Range Interpretation Comments Case number (test code = [id number]) Surgical pathology See link below for report (test code = PDF Lab Report 2255) Result status (test code This is Final Report = 9944039) for [address] pathology [id number] 15:02:28 Test Item Value Reference Range Interpretation Comments Case number (test code = [id number]) Surgical pathology See link below for report (test code = PDF Lab Report 2255) Result status (test code This is Final Report = 8829259) for [address] pathology [id number] 15:02:28 Test Item Value Reference Range Interpretation Comments Case number (test code = [id number]) Surgical pathology See link below for report (test code = PDF Lab Report 2255) Result status (test code This is Final Report = 6118895) for [address] pathology [id number] 15:02:28 Test Item Value Reference Range Interpretation Comments Case number (test code = [id number]) Surgical pathology See link below for report (test code = PDF Lab Report 2255) Result status (test code This is Final Report = 0319569) for [id number] [facility] [id number] 15:02:28 Test Item Value Reference Range Interpretation Comments Case number (test code = [id number]) Surgical pathology See link below for report (test code = PDF Lab Report 2255) Result status (test code This is Final Report = 6492080) for [id number] [facility] qualitative [id number] 22:09:28 Test Item Value Reference Interpretation Comments Range Interpretation (test Negative results do not code = 5086276) preclude COVID-19 infection and should not be used asthe sole basis for treatment or other patient management decisions. Negativeresults must be combined with clinical observations, patient history, andepidemiological information. COVID-19 qualitative Not-Detected Not-Detected RT-PCR result (test code = 29787-3) COVID-19 qualitative See link below for PDF Case Number: RT-PCR (test code = Lab Report [id number] 7070) [facility] qualitative [id number] 22:09:28 Test Item Value Reference Interpretation Comments Range Interpretation (test Negative results do not code = 4223744) preclude COVID-19 infection and should not be used asthe sole basis for treatment or other patient management decisions. Negativeresults must be combined with clinical observations, patient history, andepidemiological information. COVID-19 qualitative Not-Detected Not-Detected RT-PCR result (test code = 10652-9) COVID-19 qualitative See link below for PDF Case Number: RT-PCR (test code = Lab Report [id number] 7070) [facility] qualitative [id number] 22:09:28 Test Item Value Reference Interpretation Comments Range Interpretation (test Negative results do not code = 6308790) preclude COVID-19 infection and should not be used asthe sole basis for treatment or other patient management decisions. Negativeresults must be combined with clinical observations, patient history, andepidemiological information. COVID-19 qualitative Not-Detected Not-Detected RT-PCR result (test code = 64408-7) COVID-19 qualitative See link below for PDF Case Number: RT-PCR (test code = Lab Report [id number] 7070) [facility] [id number] 22:09:28 Test Item Value Reference Interpretation Comments Range Interpretation (test Negative results do not code = 5484484) preclude COVID-19 infection and should not be used asthe sole basis for treatment or other patient management decisions. Negativeresults must be combined with clinical observations, patient history, andepidemiological information. COVID-19 qualitative Not-Detected Not-Detected RT-PCR result (test code = 07692-5) COVID-19 qualitative See link below for PDF Case Number: RT-PCR (test code = Lab Report [id number] 7070) [facility] qualitative [id number] 22:09:28 Test Item Value Reference Interpretation Comments Range Interpretation (test Negative results do not code = 2270410) preclude COVID-19 infection and should not be used asthe sole basis for treatment or other patient management decisions. Negativeresults must be combined with clinical observations, patient history, andepidemiological information. COVID-19 qualitative Not-Detected Not-Detected RT-PCR result (test code = 47655-5) COVID-19 qualitative See link below for PDF Case Number: RT-PCR (test code = Lab Report [id number] 7070) [facility] qualitative [id number] 22:09:28 Test Item Value Reference Interpretation Comments Range Interpretation (test Negative results do not code = 0083990) preclude COVID-19 infection and should not be used asthe sole basis for treatment or other patient management decisions. Negativeresults must be combined with clinical observations, patient history, andepidemiological information. COVID-19 qualitative Not-Detected Not-Detected RT-PCR result (test code = 16993-7) COVID-19 qualitative See link below for PDF Case Number: RT-PCR (test code = Lab Report [id number] 7070) [facility] [id number] 22:09:28 Test Item Value Reference Interpretation Comments Range Interpretation (test Negative results do not code = 9266735) preclude COVID-19 infection and should not be used asthe sole basis for treatment or other patient management decisions. Negativeresults must be combined with clinical observations, patient history, andepidemiological information. COVID-19 qualitative Not-Detected Not-Detected RT-PCR result (test code = 55782-3) COVID-19 qualitative See link below for PDF Case Number: RT-PCR (test code = Lab Report [id number] 7070) [facility] qualitative [id number] 22:09:28 Test Item Value Reference Interpretation Comments Range Interpretation (test Negative results do not code = 8167692) preclude COVID-19 infection and should not be used asthe sole basis for treatment or other patient management decisions. Negativeresults must be combined with clinical observations, patient history, andepidemiological information. COVID-19 qualitative Not-Detected Not-Detected RT-PCR result (test code = 56413-0) COVID-19 qualitative See link below for PDF Case Number: RT-PCR PDF (test Lab Report [id number] 1 code = 7070) [facility] [id number] 22:09:28 Test Item Value Reference Interpretation Comments Range Interpretation (test Negative results do not code = 2543691) preclude COVID-19 infection and should not be used asthe sole basis for treatment or other patient management decisions. Negativeresults must be combined with clinical observations, patient history, andepidemiological information. COVID-19 qualitative Not-Detected Not-Detected RT-PCR result (test code = 99673-3) COVID-19 qualitative See link below for PDF Case Number: RT-PCR PDF (test Lab Report [id number] 1 code = 7070) [facility] qualitative [id number] 22:09:28 Test Item Value Reference Interpretation Comments Range Interpretation (test Negative results do not code = 0926875) preclude COVID-19 infection and should not be used asthe sole basis for treatment or other patient management decisions. Negativeresults must be combined with clinical observations, patient history, andepidemiological information. COVID-19 qualitative Not-Detected Not-Detected RT-PCR result (test code = 98357-9) COVID-19 qualitative See link below for PDF Case Number: RT-PCR PDF (test Lab Report [id number] 1 code = 7070) [facility] [id number] 22:09:28 Test Item Value Reference Interpretation Comments Range Interpretation (test Negative results do not code = 6588230) preclude COVID-19 infection and should not be used asthe sole basis for treatment or other patient management decisions. Negativeresults must be combined with clinical observations, patient history, andepidemiological information. COVID-19 qualitative Not-Detected Not-Detected RT-PCR result (test code = 16989-3) COVID-19 qualitative See link below for PDF Case Number: RT-PCR PDF (test Lab Report [id number] 1 code = 7070) [facility] qualitative [id number] 22:09:28 Test Item Value Reference Interpretation Comments Range Interpretation (test Negative results do not code = 8367779) preclude COVID-19 infection and should not be used asthe sole basis for treatment or other patient management decisions. Negativeresults must be combined with clinical observations, patient history, andepidemiological information. COVID-19 qualitative Not-Detected Not-Detected RT-PCR result (test code = 95884-2) COVID-19 qualitative See link below for PDF Case Number: RT-PCR PDF (test Lab Report [id number] 1 code = 7070) [facility] [id number] 22:09:28 Test Item Value Reference Interpretation Comments Range Interpretation (test Negative results do not code = 9034614) preclude COVID-19 infection and should not be used asthe sole basis for treatment or other patient management decisions. Negativeresults must be combined with clinical observations, patient history, andepidemiological information. COVID-19 qualitative Not-Detected Not-Detected RT-PCR result (test code = 42961-3) COVID-19 qualitative See link below for PDF Case Number: RT-PCR PDF (test Lab Report [id number] 1 code = 7070) [facility] ([facility]19) RNA [Presence] in Respiratory specimen by LATESHA with probe [id number] 17:09:28 Test Item Value Reference Range Interpretation Comments SARS-CoV-2 (COVID-19) RNA Not detected [Presence] in Respiratory specimen by LATESHA with probe detection (test code = 16148-5) Whether patient is employed in a Unknown healthcare setting (test code = 84798-9) Whether the patient has symptoms Unknown related to condition of interest (test code = 83717-1) Whether the patient was Unknown hospitalized for condition of interest (test code = 05004-2) Whether the patient was admitted Unknown to intensive care unit (ICU) for condition of interest (test code = 17450-7) Whether patient resides in a Unknown congregate care setting (test code = 85776-3) status (test code = Unknown 43491-5) Date and time of symptom onset Unknown (test code = 77902-6) [facility]YLERTHINPREP TIS AND HPV mRNA [id number] 20:30:00 Test Item Value Reference Interpretation Comments Range Clinical information None gi niurka (test code = 37770-9) Date of last NONE GIVEN menstrual period (test code = 8665-2) Prev. pap: (test code NONE G IVEN = 77099-4) Prev. bx: (test code NONE GI NIURKA = 57461-4) Source (test code = None giv en ) Statement of adequacy Satisf actory for (test code = 46054-1) evalua tion.Endocervi cony/transformat ion zone componentpresen t.Age and/or menstrua l status not prov ided Interpretation/result Negati ve for : (test code = intraepitheli al 41291-5) lesion or malignancy. Comment (test code = This Pa p test has ) been evaluated with computerassiste d technology. [employer] System Administrator [employer], CT ( CP)CT (test code = 11068-5) screen ing location: [place] [address], [facility] 7707 2 Comment (test code = EXPLANA TORY NOTE: 8438615) The Pap is a screening test for cervical cancer . It is not a diagno stic test and is sub ject to false negati ve and false posit cole results. It is most reliable when a satisfactory sa mple, regularly obtai akdy, is submitted wi th relevant clinic al findings and history, and wh en the Pap result is evaluated along with historic and cu rrent clinical information. HPV mRNA e6/e7 (test Not Detected Not Detected Methodo logy: code = 65762-4) Transcriptio n-Mediat ed Amplificatio n This assay [...] For additional information, pl ease refer tohttp://educat ion.[employer]/ faq/OVJ411r9(Th is link if provide d for information/edu catio nal purposes on ly.) JACEK (test code = RAC) Performing Organization Information: Site ID: IG Name: [facility] Address: [address] [place] [address] Director: Dr. Rajinder Grant Site ID: RGA Name: [facility] Address: [address] [place] [address] Director: Rajinder Grant [facility] AND HPV mRNA [id number] 20:30:00 Test Item Value Reference Interpretation Comments Range Clinical information None gi niurka (test code = 58025-1) Date of last NONE GIVEN menstrual period (test code = 8665-2) Prev. pap: (test code NONE G IVEN = 70662-7) Prev. bx: (test code NONE GI NIURKA = 19198-0) Source (test code = [place] 27795-3) Statement of adequacy Satisf actory for (test code = 60224-9) evalua tion.Endocervi cony/transformat ion zone componentpresen t.Age and/or menstrua l status not prov ided Interpretation/result Negati ve for : (test code = intraepitheli al 01830-6) lesion or malignancy. Comment (test code = This Pa p test has ) been evaluated with computerassiste d technology. Unix System Administrator SYL DUTTON ( CP)CT (test code = 99738-7) screen ing location: [facility] [address] [place] [address], [place] [address] 2 Comment (test code = MARYURIA NONA NOTE: 3261317) The Pap is a screening test for [...] Detected Not Detected Methodo logy: code = 83615-9) Transcriptio n-Mediat ed Amplificatio n This assay [...] For additional information, pl ease refer tohttp://educat ion.[employer] .[employer]/ faq/NBX956o6(Th is link if provide d for information/edu catio nal purposes on ly.) RAC (test code = RAC) Performing Organization Information: Site ID: IG Name: [facility] Address: [address] [place] [address] Director: Dr. Rajinder Grant Site ID: RGA Name: [facility] Address: [address] [place] [address] Director: Rajinder Grant [facility]THINPREP [facility]IS AND HPV mRNA [id number] 20:30:00 Test Item Value Reference Interpretation Comments Range Clinical information None gi niurka (test code = 08768-0) Date of last NONE GIVEN menstrual period (test code = 8665-2) Prev. pap: (test code NONE G IVEN = 07346-5) Prev. bx: (test code NONE GI NIURKA = 86747-2) Source (test code = [place] [address]-2) Statement of adequacy Satisf actory for (test code = 58447-8) evalua tion.Endocervi cony/transformat ion zone componentpresen t.Age and/or menstrua l status not prov ided Interpretation/result Negati ve for : (test code = intraepitheli [place] 27100-7) lesion or malignancy. Comment (test code = This Pa p test has ) been evaluated with Oxsensisassiste d technology. Unix System Administrator DJL, CT ( CP)CT (test code = 39282-2) screen ing location: [place] [address] [address], [facility] [address] 2 Comment (test code = EXPLANA TORY NOTE: 3031513) The Pap is a screening test for [...] Detected Not Detected Methodo logy: code = 59827-8) Transcriptio n-Mediat ed Amplificatio n This assay [...] For additional information, pl ease refer tohttp://educat ion.[employer]/ faq/VPC503t5(Th is link if provide d for information/edu catio nal purposes on ly.) JACEK (test code = RAC) Performing Organization Information: Site ID: IG Name: [facility] Address: [address] [place] [address] Director: Dr. Rajinder Grant Site ID: RGA Name: [facility] Address: [address] [place] [address] Director: [facility]inder [facility]THINPREP TIS AND HPV mRNA [id number] 20:30:00 Test Item Value Reference Interpretation Comments Range Clinical information None gi niurka (test code = 67916-6) Date of last NONE GIVEN menstrual period (test code = 8665-2) Prev. pap: (test code NONE G IVEN = 39622-8) Prev. bx: (test code NONE GI NIURKA = 12600-1) Source (test code = [place] [address]853-5) Statement of adequacy Satisf actory for (test code = 61432-1) evalua tion.Endocervi cony/transformat ion zone componentpresen t.Age and/or menstrua l status not prov ided Interpretation/result Negati ve for : (test code = intraepitheli al 65138-5) lesion or malignancy. Comment (test code = This Pa p test has ) been evaluated with Oxsensisassiste d technology. Unix System Administrator NATO CT ( CP)CT (test code = 95736-3) screen ing location: [address], [place] [address] Comment (test code = EXPLANA TORY NOTE: 0603136) The Pap is a screening test for [...] Detected Not Detected Methodo logy: code = 39309-8) Transcriptio n-Mediat ed Amplificatio n This assay [...] For additional information, pl ease refer tohttp://educat ion.[employer] .[employer]/ faq/FMB974w0(Th is link if provide d for information/edu catio nal purposes on ly.) JACEK (test code = RAC) Performing Organization Information: Site ID: IG Name: [facility] Address: [address] [place] [address] Director: Dr. Rajinder Grant Site ID: RGA Name: [facility] Address: [address] [place] [address] Director: Rajinder Grant [facility]THINPREP TIS AND HPV mRNA [id number] 20:30:00 Test Item Value Reference Interpretation Comments Range Clinical information None gi niurka (test code = 17320-2) Date of last NONE GIVEN menstrual period (test code = 8665-2) Prev. pap: (test code NONE G IVEN = 19500-8) Prev. bx: (test code NONE GI NIURKA = 17247-7) Source (test code = [place] [address]-8) Statement of adequacy Satisf actory for (test code = 54420-9) evalua tion.Endocervi cony/transformat ion zone componentpresen t.Age and/or menstrua l status not prov ided Interpretation/result Negati ve for : (test code = intraepitheli al 44005-3) lesion or malignancy. Comment (test code = This Pa p test has ) been evaluated with computerassiste d technology. Unix System Administrator DJL, CT ( CP)CT (test code = 83004-9) screen ing location: [facility] [address] [place] [address], [place] [address] 2 Comment (test code = EXPLANA TORY NOTE: 3508070) The Pap is a screening test for [...] Detected Not Detected Methodo logy: code = 33518-4) Transcriptio n-Mediat ed Amplificatio n This assay [...] For additional information, pl ease refer tohttp://educat ion.[employer]/ faq/IKO360k4(Th is link if provide d for information/edu catio nal purposes on ly.) JACEK (test code = RAC) Performing Organization Information: Site ID: IG Name: [facility] Address: [address] [place] [address] Director: Dr. Rajinder Grant Site ID: RGA Name: [facility] Address: [address] [place] [address] Director: Rajinder Grant [facility]THINPREP TIS AND HPV mRNA [id number] 20:30:00 Test Item Value Reference Interpretation Comments Range Clinical information None gi niurka (test code = 86058-1) Date of last NONE GIVEN menstrual period (test code = 8665-2) Prev. pap: (test code NONE G IVEN = 04440-1) Prev. bx: (test code NONE GI NIURKA = 54678-3) Source (test code = [place] [address]77[address]-0) Statement of adequacy Satisf actory for (test code = 87149-0) evalua tion.Endocervi cony/transformat ion zone componentpresen t.Age and/or menstrua l status not prov ided Interpretation/result Negati ve for : (test code = intraepitheli al 37224-4) lesion or malignancy. Comment (test code = This Pa p test has ) been evaluated with computerassiste d technology. Unix System Administrator DJL, CT ( CP)CT (test code = 58134-6) screen ing location: [address], [place] [address] Comment (test code = EXPLANA NONA NOTE: 2058418) The Pap is a screening test for [...] Detected Not Detected Methodo logy: code = 42186-5) Transcriptio n-Mediat ed Amplificatio n This assay [...] For additional information, pl ease refer tohttp://educat ion.[employer]/ faq/EUD192d2(Th is link if provide d for information/edu catio nal purposes on ly.) RAC (test code = RAC) Performing Organization Information: Site ID: IG Name: [facility] Address: [address] [place] [address] Director: Dr. Rajinder Grant Site ID: RGA Name: [facility] Address: [address] [place] [address] Director: Rajinder Grant [facility]THINPREP TIS AND HPV mRNA [id number] 20:30:00 Test Item Value Reference Interpretation Comments Range Clinical information None gi niurka (test code = 31732-0) Date of last NONE GIVEN menstrual period (test code = 8665-2) Prev. pap: (test code NONE G IVEN = 11546-2) Prev. bx: (test code NONE GI NIURKA = 87012-4) Source (test code = [place] [address]39[address]-0) Statement of adequacy Satisf actory for (test code = 31595-0) evalua tion.Endocervi cony/transformat ion zone componentpresen t.Age and/or menstrua l status not prov ided Interpretation/result Negati ve for : (test code = intraepitheli al 62609-6) lesion or malignancy. Comment (test code = This Pa p test has ) been evaluated with computerassiste d technology. Unix System Administrator DJL, CT ( CP)CT (test code = 91493-5) screen ing location: [place] [address], [facility] [address] 2 Comment (test code = EXPLANA TORY NOTE: 7244891) The Pap is a screening test for [...] Detected Not Detected Methodo logy: code = 69594-8) Transcriptio n-Mediat ed Amplificatio n This assay [...] For additional information, pl ease refer tohttp://educat ion.[employer] .[employer]/ faq/LXX312i9(Th is link if provide d for information/edu catio nal purposes on ly.) JACEK (test code = RAC) Performing Organization Information: Site ID: IG Name: [facility] Address: [address] [place] [address] Director: Dr. Rajinder Grant Site ID: RGA Name: [facility] Address: [address] [place] [address] Director: Rajinder Grant [facility]THINPREP TIS AND HPV mRNA [id number] 20:30:00 Test Item Value Reference Interpretation Comments Range Clinical information None gi niurka (test code = 93741-5) Date of last NONE GIVEN menstrual period (test code = 8665-2) Prev. pap: (test code NONE G IVEN = 83651-4) Prev. bx: (test code NONE GI NIURKA = 08675-5) Source (test code = None giv en ) Statement of adequacy Satisf actory for (test code = 24992-0) evalua tion.Endocervi cony/transformat ion zone componentpresen t.Age and/or menstrua l status not prov ided Interpretation/result Negati ve for : (test code = intraepitheli al 94999-7) lesion or malignancy. Comment (test code = This Pa p test has ) been evaluated with Oxsensisassiste d technology. Unix System Administrator NATO, CT ( CP)CT (test code = 86501-7) screen ing location: [facility] [address] [place] [address], [place] [address] 2 Comment (test code = EXPLANA TORY NOTE: 3555327) The Pap is a screening test for [...] Detected Not Detected Methodo logy: code = 80174-3) Transcriptio n-Mediat ed Amplificatio n This assay [...] For additional information, pl ease refer tohttp://educat ion.[employer] .[employer]/ faq/AZX061k9(Th is link if provide d for information/edu catio nal purposes on ly.) RAC (test code = RAC) Performing Organization Information: Site ID: IG Name: [facility] Address: [address] [place] [address] Director: Dr. Rajinder Grant Site ID: RGA Name: [facility] Address: [address] [place] [address] Director: Rajinder Grant [facility]THINPREP TIS AND HPV mRNA [id number] 20:30:00 Test Item Value Reference Interpretation Comments Range Clinical information None gi niurka (test code = 52344-5) Date of last NONE GIVEN menstrual period (test code = 8665-2) Prev. pap: (test code NONE G IVEN = 18032-6) Prev. bx: (test code NONE GI NUIRKA = 27903-8) Source (test code = [place] [address]-9) Statement of adequacy Satisf actory for (test code = 35640-9) evalua tion.Endocervi cony/transformat ion zone componentpresen t.Age and/or menstrua l status not prov ided Interpretation/result Negati ve for : (test code = intraepitheli al 84236-8) lesion or malignancy. Comment (test code = This Pa p test has ) been evaluated with computerassiste d technology. Unix System Administrator NATO, CT ( CP)CT (test code = 66561-0) screen ing location: [facility] [address] [place] [address], [place] [address] 2 Comment (test code = EXPLANA TORY NOTE: 6767120) The Pap is a screening test for [...] Detected Not Detected Methodo logy: code = 73238-0) Transcriptio n-Mediat ed Amplificatio n This assay [...] For additional information, pl ease refer tohttp://educat ion.[employer]/ faq/NZQ574n6(Th is link if provide d for information/edu catio nal purposes on ly.) JACEK (test code = RAC) Performing Organization Information: Site ID: IG Name: [facility] Address: [address] [place] [address] Director: Dr. Rajinder Grant Site ID: RGA Name: [facility] Address: [address] [place] [address] Director: Rajinder Grant [facility]THINPREP TIS AND HPV mRNA [id number] 20:30:00 Test Item Value Reference Interpretation Comments Range Clinical information None gi niurka (test code = 74039-9) Date of last NONE GIVEN menstrual period (test code = 8665-2) Prev. pap: (test code NONE G IVEN = 35587-9) Prev. bx: (test code NONE GI NIURKA = 38077-0) Source (test code = [place] [address]-9) Statement of adequacy Satisf actory for (test code = 22978-8) evalua tion.Endocervi cony/transformat ion zone componentpresen t.Age and/or menstrua l status not prov ided Interpretation/result Negati ve for : (test code = intraepitheli al 36165-1) lesion or malignancy. Comment (test code = This Pa p test has ) been evaluated with computerassiste d technology. Unix System Administrator SYL DUTTON ( CP)CT (test code = 26870-0) screen ing location: [facility] [address] [place] [address], [place] [address] 2 Comment (test code = EXPLANA NONA NOTE: 9743722) The Pap is a screening test for [...] Detected Not Detected Methodo logy: code = 77180-5) Transcriptio n-Mediat ed Amplificatio n This assay [...] For additional information, pl ease refer tohttp://educat ion.[employer] .[employer]/ faq/DKG529d8(Th is link if provide d for information/edu catio nal purposes on ly.) RAC (test code = RAC) Performing Organization Information: Site ID: IG Name: [facility] Address: [address] [place] [address] Director: Dr. Rajinder Grant Site ID: RGA Name: [facility] Address: [address] [place] [address] Director: Rajinder Grant [facility]THINPREP TIS AND HPV mRNA [id number] 20:30:00 Test Item Value Reference Interpretation Comments Range Clinical information None gi niurka (test code = 90671-5) Date of last NONE GIVEN menstrual period (test code = 8665-2) Prev. pap: (test code NONE G IVEN = 36616-9) Prev. bx: (test code NONE GI NIURKA = 46060-9) Source (test code = [place] [address]-5) Statement of adequacy Satisf actory for (test code = 20933-2) evalua tion.Endocervi cony/transformat ion zone componentpresen t.Age and/or menstrua l status not prov ided Interpretation/result Negati ve for : (test code = intraepitheli al 75332-3) lesion or malignancy. Comment (test code = This Pa p test has ) been evaluated with computerassiste d technology. Unix System Administrator NATO, CT ( CP)CT (test code = 81793-7) screen ing location: [place] [address] [address], [facility] [address] 2 Comment (test code = EXPLANA TORY NOTE: 6409078) The Pap is a screening test for [...] Detected Not Detected Methodo logy: code = 73667-7) Transcriptio n-Mediat ed Amplificatio n This assay [...] For additional information, pl ease refer tohttp://educat ion.[employer] .[employer]/ faq/GPT243p5(Th is link if provide d for information/edu catio nal purposes on ly.) JACEK (test code = RAC) Performing Organization Information: Site ID: IG Name: [facility] Address: [address] [place] [address] Director: Dr. Rajinder Grant Site ID: KATERINA Name: [facility] Address: [address] [place] [address] Director: Rajinder Grant [facility]THINPREP [facility]IS AND HPV mRNA [id number] 20:30:00 Test Item Value Reference Interpretation Comments Range Clinical information None gi niurka (test code = 29638-0) Date of last NONE GIVEN menstrual period (test code = 8665-2) Prev. pap: (test code NONE G IVEN = 10092-2) Prev. bx: (test code NONE GI NIURKA = 27648-0) Source (test code = None giv en ) Statement of adequacy Satisf actory for (test code = 84658-0) evalua tion.Endocervi cony/transformat ion zone componentpresen t.Age and/or menstrua l status not prov ided Interpretation/result Negati ve for : (test code = intraepitheli al 75261-5) lesion or malignancy. Comment (test code = This Pa p test has ) been evaluated with Sweeperyiste d technology. Unix System Administrator NATO, CT ( CP)CT (test code = 78005-7) screen ing location: [address], [place] [address] 2 Comment (test code = EXPLANA TORY NOTE: 7958765) The Pap is a screening test for [...] Detected Not Detected Methodo logy: code = 42633-3) Transcriptio n-Mediat ed Amplificatio n This assay [...] For additional information, pl ease refer tohttp://educat ion.[employer] .[employer]/ faq/PLB355s2(Th is link if provide d for information/edu catio nal purposes on ly.) RAC (test code = RAC) Performing Organization Information: Site ID: IG Name: [facility] Address: [address] [place] [address] Director: Dr. Rajinder Grant Site ID: RGA Name: [facility] Address: [address] [place] [address] Director: Rajinder Grant [facility]THINPREP TIS AND HPV mRNA [id number] 20:30:00 Test Item Value Reference Interpretation Comments Range Clinical information None gi niurka (test code = 33140-8) Date of last NONE GIVEN menstrual period (test code = 8665-2) Prev. pap: (test code NONE G IVEN = 93450-0) Prev. bx: (test code NONE GI NIURKA = 03896-6) Source (test code = [place] [address]-5) Statement of adequacy Satisf actory for (test code = 78954-7) evalua tion.Endocervi cony/transformat ion zone componentpresen t.Age and/or menstrua l status not prov ided Interpretation/result Negati ve for : (test code = intraepitheli al 66655-5) lesion or malignancy. Comment (test code = This Pa p test has ) been evaluated with computerassiste d technology. Unix System Administrator ISAELL, CT ( CP)CT (test code = 89768-7) screen ing location: [facility] [address] [facility], [place] [address] 2 Comment (test code = EXPLANA TORY NOTE: 1287213) The Pap is a screening test for [...] Detected Not Detected Methodo logy: code = 73782-3) Transcriptio n-Mediat ed Amplificatio n This assay [...] For additional information, pl ease refer tohttp://educat ion.[employer]/ faq/YWT341b2(Th is link if provide d for information/edu catio nal purposes on ly.) RAC (test code = RAC) Performing Organization Information: Site ID: IG Name: [facility] Address: [address] [place] [address] Director: Dr. Rajinder Grant Site ID: RGA Name: [facility] Address: [address] [place] [address] Director: Rajinder Grant [address]2022-09-01 18:14:37 Test Item Value Reference Range Interpretation Comments Ventricular rate (test code = 253) Atrial rate (test code = 255) MS interval (test code = 266) QRSD interval [...] of 07-NOV-2021 12:57,-No significant change was found- [address]2022-09-01 18:14:37 Test Item Value Reference Range Interpretation Comments Ventricular rate (test code = 253) Atrial rate (test code = 255) MS interval (test code = 266) QRSD interval [...] of 07-NOV-2021 12:57,-No significant change was found- [facility] 12 [id number] 18:14:37 Test Item Value Reference Range Interpretation Comments Ventricular rate (test code = 253) Atrial rate (test code = 255) MS interval (test code = 266) QRSD interval [...] of 07-NOV-2021 12:57,-No significant change was found- [facility] RNA [Presence] in Respiratory specimen by LATESHA with probe [id number] 21:57:49 Test Item Value Reference Range Interpretation Comments SARS-CoV-2 (COVID-19) RNA [Presence] Detected in Respiratory specimen by LATESHA with probe detection (test code = 40559-8) Whether patient is employed in a Unknown healthcare setting (test code = 01181-0) Whether the patient has symptoms Unknown related to condition of interest (test code = 57595-9) Whether the patient was hospitalized Unknown for condition of interest (test code = 95384-9) Whether the patient was admitted to Unknown intensive care unit (ICU) for condition of interest (test code = 58648-2) Whether patient resides in a Unknown congregate care setting (test code = 68403-2) status (test code = Unknown 44138-9) Date and time of symptom onset (test Unknown code = 73015-6) [facility] function [id number] 18:40:00 Test Item Value Reference Range Interpretation [...] RAC) Organization Information: Site ID: RGA [facility] Address: [address] [place] [address] Director: Rajinder Grant [facility] function [id number] 18:40:00 Test Item Value Reference Range Interpretation [...] 1920-8) ALT (test code = 14 U/L 629 1742-6) WILDA (test code = FASTING: UNKNOWN WILDA) RAC (test code = Performing RAC) Organization Information: Site ID: RGA [facility] Address: [address] [place] [address] Director: Rajinder Grant [facility] function [id number] 18:40:00 Test Item Value Reference Range Interpretation [...] RAC) Organization Information: Site ID: RGA [facility] Address: [address] [place] [address] Director: Rajinder Grant [facility] function [id number] 18:40:00 Test Item Value Reference Range Interpretation [...] RAC) Organization Information: Site ID: RGA [facility] Address: [address] [place] [address] Director[facility] [id number] 18:40:00 Test Item Value Reference Range Interpretation [...] RAC) Organization Information: Site ID: RGA [facility] Address: [address] [place] [address] Director: Rajinder Grant [facility] function [id number] 18:40:00 Test Item Value Reference Range Interpretation [...] 8) ALT (test code = 14 U/L 10-086) WILDA (test code = FASTING: UNKNOWN WILDA) RAC (test code = Performing RAC) Organization Information: Site ID: RGA [facility] Address: [address] [place] [address] Director: Rajinder Grant [facility] function [id number] 18:40:00 Test Item Value Reference Range Interpretation [...] 8) ALT (test code = 14 U/L 10-086) WILDA (test code = FASTING: UNKNOWN WILDA) RAC (test code = Performing RAC) Organization Information: Site ID: [facility] Name: [facility] Lab Address: [address] [place] [address] Director: Rajinder LamarAvita Health SystemHepatic function [id number] 18:40:00 Test Item Value Reference Range Interpretation [...] Information: Site ID: RGA Name: [facility] Lab Address: [address] [place] [address] Director: Rajinder LamarAvita Health SystemHepatic function [id number] 18:40:00 Test Item Value Reference Range Interpretation [...] RAC) Organization Information: Site ID: RGA Name: [facility] Address: [address] [place] [address] Director: Rajinder Grant [facility] CenterHepatic function [id number] 18:40:00 Test Item Value Reference Range Interpretation [...] RAC) Organization Information: Site ID: RGA Name: [facility] Address: [address] [place] [address] Director: Rajinder WardThe Bellevue HospitalHepatic function [id number] 18:40:00 Test Item Value Reference Range Interpretation [...] RAC) Organization Information: Site ID: RGA Name: [facility] Address: [address] [place] [address] Director: Rajinder MartínezARS-CoV-2 (COVID-19) RNA [Presence] in Respiratory specimen by LATESHA with probe [id number] 20:46:09 Test Item Value Reference Range Interpretation Comments SARS-CoV-2 (COVID-19) RNA Not detected [Presence] in Respiratory specimen by LATESHA with probe detection (test code = 04102-2) Whether patient is employed in a Unknown healthcare setting (test code = 93380-0) Whether the patient has symptoms Unknown related to condition of interest (test code = 82364-8) Whether the patient was Unknown hospitalized for condition of interest (test code = 56096-4) Whether the patient was admitted Unknown to intensive care unit (ICU) for condition of interest (test code = 97987-4) Whether patient resides in a Unknown congregate care setting (test code = 49710-9) status (test code = Unknown 25624-7) Date and time of symptom onset Unknown (test code = 67785-0) [facility] [id number] 05:23:00 Test Item Value Reference Range Interpretation Comments TSH (test code mIU/L Reference Ra nge > = 3016-3) or = 20 Years 0.40-4.50 Range s First trimester 0.26-2.66 Secon d trimester 0.55-2.73 Third trimester 0.43-2.91 RAC (test code Performing = RAC) Organization Information: Site ID: RGA Name: [facility] Address: [address] [place] [address] Director: Rajinder Girma [facility]2022-06-11 05:23:00 Test Item Value Reference Range Interpretation Comments TSH (test code mIU/L Reference Ra nge = 3016-3) > or = 20 Years 0.40-4.50 Range s First trimester 0.26-2.66 Secon d trimester 0.55-2.73 Third trimester 0.43-2.91 RAC (test code Performing = RAC) Organization Information: Site ID: RGA Name: [facility] Address: [address] [place] [address] Director: Rajinder LamarWadsworth[facility] [id number] 05:23:00 Test Item Value Reference Range Interpretation Comments TSH (test code mIU/L Reference Ra nge = 3016-3) > or = 20 Years 0.40-4.50 Range s First trimester 0.26-2.66 Secon d trimester 0.55-2.73 Third trimester 0.43-2.91 RAC (test code Performing = RAC) Organization Information: Site ID: RGA Name: [facility] Address: [address] [place] [address] Director: Rajinder KiddB[facility]roid [facility] [id number] 05:23:00 Test Item Value Reference Range Interpretation Comments TSH (test code mIU/L Reference Ra nge = 3016-3) > or = 20 Years 0.40-4.50 Range s First trimester 0.26-2.66 Secon d trimester 0.55-2.73 Third trimester 0.43-2.91 RAC (test code Performing = RAC) Organization Information: Site ID: RGA Name: [facility] Address: [address] [place] [address] Director: Rajinder Grant [facility] CenterThyroid stimulating [id number] 05:23:00 Test Item Value Reference Range Interpretation Comments TSH (test code mIU/L Reference Ra nge > = 3016-3) or = 20 Years 0.40-4.50 Range s First trimester 0.26-2.66 Secon d trimester 0.55-2.73 Third trimester 0.43-2.91 RAC (test code Performing = RAC) Organization Information: Site ID: A Name: [facility] Address: [address] [place] [address] Director: Rajinder Grant [facility] Pointeroid stimulating [id number] 05:23:00 Test Item Value Reference Range Interpretation Comments TSH (test code mIU/L Reference Ra nge > = 3016-3) or = 20 Years 0.40-4.50 Range s First trimester 0.26-2.66 Secon d trimester 0.55-2.73 Third trimester 0.43-2.91 RAC (test code Performing = RAC) Organization Information: Site ID: RGA Name: [facility] Address: [address] [place] [address] Director: Rajinder KiddHCA [facility] Healthcare MainlandThyroid stimulating [id number] 05:23:00 Test Item Value Reference Range Interpretation Comments TSH (test code 1.97 mIU/L Reference Ra nge > = 3016-3) or = 20 Years 0.40-4.50 Range s First trimester 0.26-2.66 Secon d trimester 0.55-2.73 Third trimester 0.43-2.91 RAC (test code Performing = RAC) Organization Information: Site ID: RGA Name: [facility] Address: [address] [place] [address] Director: Rajinder L RudySamaritan North Health CenterThyroid stimulating [id number] 05:23:00 Test Item Value Reference Range Interpretation Comments TSH (test code 1.97 mIU/L Reference Ra nge > = 3016-3) or = 20 Years 0.40-4.50 Range s First trimester 0.26-2.66 Secon d trimester 0.55-2.73 Third trimester 0.43-2.91 RAC (test code Performing = RAC) Organization Information: Site ID: RGA Name: [facility] Address: [address] [place] [address] Director: Rajinder Grant [facility] Pointeroid stimulating [id number] 05:23:00 Test Item Value Reference Range Interpretation Comments TSH (test code 1.97 mIU/L Reference Ra nge > = 3016-3) or = 20 Years 0.40-4.50 Range s First trimester 0.26-2.66 Secon d trimester 0.55-2.73 Third trimester 0.43-2.91 RAC (test code Performing = RAC) Organization Information: Site ID: A Name: [facility] Address: [address] [place] [address] Director: Rajinder Grant [facility] stimulating [id number] 05:23:00 Test Item Value Reference Range Interpretation Comments TSH (test code 1.97 mIU/L Reference Ra nge > = 3016-3) or = 20 Years 0.40-4.50 Range s First trimester 0.26-2.66 Secon d trimester 0.55-2.73 Third trimester 0.43-2.91 RAC (test code Performing = RAC) Organization Information: Site ID: A Name: [facility] Address: [address] [place] [address] Director: Rajinder Grant [facility] CenterUA RFLX MICR CULT IF [id number] 18:48:00 Test Item Value Reference Range Interpretation [...] LACT) 0.7 mmol/L 0.7-2.0 N LIVER FUNCTION [id number] 15:14:00 Test Item Value Reference Range Interpretation [...] U/L 38-126 N (test code = ALKP) [id number] 15:14:00 Test Item Value Reference Range Interpretation [...] ~~~~~~~~~~~~ ~~~~~~~~~~~~~~~ ~~~~~~~~~~~~ ~~~~~~~~~~~~~~~ ~ BASIC METABOLIC [id number] 15:14:00 Test Item Value Reference Range Interpretation [...] = HEMINDEX) - CT ABD PELVIS W/O [id number] 14:53:00 [facility] 1970 Sex: F FAX: Debo Gutierrez [place]: St: REG Name: HERSON JACKSON [facility] [place] : 1970 Age/S: 51/F [address] Unit: [id number] Loc: [place] [address] Phys: Debo Gutierrez Acct: [id number] Dis Date:Status: REG ER PHONE #: [phone] Exam Date: 08/08/2021 1435 FAX #: [phone] Reason: flank pain EXAMS: CPT CODE: [id number] CT ABD PELVIS W/O CONT 34259 EXAM: CT abdomen and pelvis without contrast [...] 1 Signed Report (CONTINUED) FAX: Debo Gutierrez [place]: St: REG Name: HERSON JACKSON : 1970 Age/S: 51/F [address] Unit: [id number] Loc: [place] [address] Phys: Debo Gutierrez Acct: [id number] Dis Date: Status: REG ER PHONE #: [phone] Exam Date: 08/08/2021 1435 FAX #: [phone] Reason: flank pain EXAMS: CPT CODE: [id number] CT ABD PELVIS W/O CONT 67684 (Continued) nephrolithiasis . Evaluation of the bladder [...] 2 Signed Report (CONTINUED) FAX: Debo Gutierrez [place]: St: REG Name: HERSON JACKSON : 1970 Age/S: 51/F [address] Unit: [id number] Loc: [place] [address] Phys: Debo Gutierrez Acct: [id number] Dis Date: Status: REG ER PHONE #: [phone] Exam Date: 08/08/2021 1435 FAX #: [phone] Reason: flank pain EXAMS: CPT CODE: [id number] CT ABD PELVIS W/O CONT 19196 (Continued) CC: Debo Gutierrez Technologist: Debo Ortiz; SCOTT SORIANO; DIANE BENAVIDES Trnscrd Dt/Tm: 08/08/2021 (1453) t.VIANCAR.HPD Orig Print D/T: S: 08/08/2021 (7366 PAGE 3 Signed ReportCBC W/AUTO [id number] 14:21:00 Test Item Value Reference Range Interpretation [...] 3/uL 0.0-0.1 N - XR CHEST 1 [id number] 13:50:00 [facility] : 1970 Sex: F FAX: Debo Gutierrez [place]: LINDA St: PRE Name: HERSON JACKSON : 1970 Age/S: 51/F [address] Unit #: [id number] Loc: [place] [address] Phys: Debo Gutierrez Acct: [id number] Dis Date:Status: PRE ER PHONE #: [phone] Exam Date: 08/08/2021 1340 FAX #: [phone] Reason: CODE SEPSIS EXAMS: CPT CODE: [id number] XR CHEST 1 V 68969 CHEST 1 VIEW: INDICATION: CODE SEPSIS COMPARISON:There [...] Gutierrez Technologist: NAY GILLIS; STUDENT 2ND YEAR Trnorrd Date/Time/By: 08/08/2021 (1350) : By: [email or web address] PAGE 1 Signed Report FAX: Debo uGtierrez [place]: St: PRE -- Name: HERSON JACKSON : 1970 Age/S: 51/F [address] Unit #: [id number] Loc: [place] [address] Phys: Debo Gutierrez Acct: [id number] Dis Date: Status: PRE ER PHONE #: [phone] Exam Date: 08/08/2021 1340 FAX #: [phone] Reason: CODE SEPSIS EXAMS: CPT CODE: [id number] XR CHEST 1 V 04174 (Continued) Orig Print D/T: S: 08/08/2021 (8898) PAGE 2 Signed ReportTHINPREP TIS PAP AND HPV mRNA E6/E7 REFLEX HPV 16,18/45 2021-06-19 18:43:00 Test Item Value Reference Interpretation Comments Range Clinical information None gi niurka (test code = 61756-6) Date of last NONE GIVEN menstrual period (test code = 8665-2) Prev. pap: (test code NONE G IVEN = 11438-1) Prev. bx: (test code NONE GI NIURKA = 82675-8) Source (test code = None giv en ) Statement of adequacy Satisf actory for (test code = 08976-5) evalua tion.Endocervi cony/transformat ion zone componentpresen t.Age and/or menstrua l status not prov ided Interpretation/result Negati ve for : (test code = intraepitheli al 55770-0) lesion or malignancy. Comment (test code = This Pa p test has ) been evaluated with computerGuang Lian Shi Daiiste d technology. Review PMT, CT(ASCP)CT extractor filler screening l ocation: (test code = 40738-0) [facility] [address], [facility] [address] Comment (test code = EXPLANA TORY NOTE: 0297199) The Pap is a screening test for [...] Detected Not Detected Methodo logy: code = 60067-6) Transcriptio n-Mediat ed Amplificatio n This assay dete cts E6/E7 viral messenger RNA ( mRNA) from 14high-ris k HPV types (16,18,31,33,35 ,39,4 5,51,52,56,58,5 9,66, 68). The analyt ical performance characteristics of thisassay have been determined by [employer].The modifications h ave not been cleare d or approvedby the FDA. This assay has been validated pursu antto the CLIA regula tions and is used forclinical purposes. For additional information, pl ease refer tohttp://educat ion.CSMG .[employer]/ faq/TPC744w0(Th is link if provide d for information/edu catio nal purposes on ly.) RAC (test code = RAC) Performing Organization Information: Site ID: IG Name: [facility] Address: [address] [place] [address] Director: Dr. Rajinder Grant Site ID: RGA Name: [facility] Lab Address: [address] [place] [address] Director: Rajinder Grant [facility] CenterTHINPREP TIS PAP AND HPV mRNA E6/E7 REFLEX HPV 16,18/45 2021-06-19 18:43:00 Test Item Value Reference Interpretation Comments Range Clinical information None gi niurka (test code = 15631-5) Date of last NONE GIVEN menstrual period (test code = 8665-2) Prev. pap: (test code NONE G IVEN = 66217-9) Prev. bx: (test code NONE GI NIURKA = 76980-5) Source (test code = None [place] en 77937-0) Statement of adequacy Satisf actory for (test code = 54354-8) evalua tion.Endocervi cony/transformat ion zone componentpresen t.Age and/or menstrua l status not prov ided Interpretation/result Negati ve for : (test code = intraepitheli al 30372-7) lesion or malignancy. Comment (test code = This Pa p test has ) been evaluated with computerassiste d technology. Review PMT, CT(ASCP)CT extractor filler screening l ocation: (test code = 42565-4) [facility] [place] [address] Comment (test code = EXPLANA TORY NOTE: 5408154) The Pap is a screening test for [...] Detected Not Detected Methodo logy: code = 81934-5) Transcriptio n-Mediat ed Amplificatio n This assay dete cts E6/E7 viral messenger RNA ( mRNA) from 14high-ris k HPV types (16,18,31,33,35 ,39,4 5,51,52,56,58,5 9,66, 68). The analyt ical performance characteristics of thisassay have been determined by [employer].The modifications h ave not been cleare d or approvedby the FDA. This assay has been validated pursu antto the CLIA regula tions and is used forclinical purposes. For additional information, pl ease refer tohttp://educat ion.[employer]/ faq/CNB849s7(Th is link if provide d for information/edu catio nal purposes on ly.) JACEK (test code = RAC) Performing Organization Information: Site ID: IG Name: [facility] Address: [address] [place] [address] Director: Dr. Rajinder Grant Site ID: RGA Name: [facility] Lab Address: [address] [place] [address] Director: Rajinder Grant [facility] CenterTHINPREP TIS PAP AND HPV mRNA E6/E7 REFLEX HPV 16,18/45 2021-06-19 18:43:00 Test Item Value Reference Interpretation Comments Range Clinical information None gi niurka (test code = 04404-7) Date of last NONE GIVEN menstrual period (test code = 8665-2) Prev. pap: (test code NONE G IVEN = 94840-7) Prev. bx: (test code NONE GI NIURKA = 24620-5) Source (test code = None giv en ) Statement of adequacy Satisf actory for (test code = 36732-3) evalua tion.Endocervi cony/transformat ion zone componentpresen t.Age and/or menstrua l status not prov ided Interpretation/result Negati ve for : (test code = intraepitheli al 91510-2) lesion or malignancy. Comment (test code = This Pa p test has ) been evaluated with computerassiste d technology. Review PMT, CT(ASCP)CT extractor filler screening l ocation: (test code = 29864-3) [facility] [place] [address] [place] [address], [place] [address] Comment (test code = EXPLANA NONA NOTE: 6548886) The Pap is a screening test for [...] Detected Not Detected Methodo logy: code = 67554-7) Transcriptio n-Mediat ed Amplificatio n This assay dete cts E6/E7 viral messenger RNA ( mRNA) from 14high-ris k HPV types (16,18,31,33,35 ,39,4 5,51,52,56,58,5 9,66, 68). The analyt ical performance characteristics of thisassay have been determined by [employer].The modifications h ave not been cleare d or approvedby the FDA. This assay has been validated pursu antto the CLIA regula tions and is used forclinical purposes. For additional information, pl ease refer tohttp://educat ion.[employer] .[employer]/ faq/OCW627t3(Th is link if provide d for information/edu catio nal purposes on ly.) RAC (test code = RAC) Performing Organization Information: Site ID: IG Name: [facility] Address: [address] [place] [address] Director: Dr. Rajinder Grant Site ID: RGA Name: [facility] Lab Address: [address] [place] [address] Director: Rajinder Grant [facility] CenterTHINPREP TIS PAP AND HPV mRNA E6/E7 REFLEX HPV 16,18/45 2021-06-19 18:43:00 Test Item Value Reference Interpretation Comments Range Clinical information None gi niurka (test code = 52884-4) Date of last NONE GIVEN menstrual period (test code = 8665-2) Prev. pap: (test code NONE G IVEN = 42697-8) Prev. bx: (test code NONE GI NIURKA = 32046-1) Source (test code = [place] [address]58[address]-2) Statement of adequacy Satisf actory for (test code = 50204-2) evalua tion.Endocervi cony/transformat ion zone componentpresen t.Age and/or menstrua l status not prov ided Interpretation/result Negati ve for : (test code = intraepitheli al 67947-5) lesion or malignancy. Comment (test code = This Pa p test has ) been evaluated with computerassiste d technology. Review PMT, CT(ASCP)CT extractor filler screening l ocation: (test code = 52426-8) [facility] [address], [facility] [address] Comment (test code = EXPLANA TORY NOTE: 6180749) The Pap is a screening test for [...] Detected Not Detected Methodo logy: code = 95793-1) Transcriptio n-Mediat ed Amplificatio n This assay dete cts E6/E7 viral messenger RNA ( mRNA) from 14high-ris k HPV types (16,18,31,33,35 ,39,4 5,51,52,56,58,5 9,66, 68). The analyt ical performance characteristics of thisassay have been determined by [employer].The modifications h ave not been cleare d or approvedby the FDA. This assay has been validated pursu antto the CLIA regula tions and is used forclinical purposes. For additional information, pl ease refer tohttp://educat ion.q [employer]/ faq/RSJ772p0(Th is link if provide d for information/edu catio nal purposes on ly.) RAC (test code = RAC) Performing Organization Information: Site ID: IG Name: [facility] Lab Address: [address] [place] [address] Director: Dr. Rajinder Grant Site ID: RGA Name: [facility] Lab Address: [address] [place] [address] Director: Rajinder Grant [facility] CenterTHINPREP TIS PAP AND HPV mRNA E6/E7 REFLEX HPV 16,18/45 2021-06-19 18:43:00 Test Item Value Reference Interpretation Comments Range Clinical information None gi niurka (test code = 46450-4) Date of last NONE GIVEN menstrual period (test code = 8665-2) Prev. pap: (test code NONE G IVEN = 95242-1) Prev. bx: (test code NONE GI NIURKA = 52445-4) Source (test code = [place] [address]-9) Statement of adequacy Satisf actory for (test code = 43144-0) evalua tion.Endocervi cony/transformat ion zone componentpresen t.Age and/or menstrua l status not prov ided Interpretation/result Negati ve for : (test code = intraepitheli al 27155-6) lesion or malignancy. Comment (test code = This Pa p test has ) been evaluated with computerassiste d technology. Review PMT, CT(ASCP)CT extractor filler screening l ocation: (test code = 93774-3) [place] [address], [facility] [address] Comment (test code = EXPLANA TORY NOTE: 5340688) The Pap is a screening test for [...] Detected Not Detected Methodo logy: code = 01496-5) Transcriptio n-Mediat ed Amplificatio n This assay dete cts E6/E7 viral messenger RNA ( mRNA) from 14high-ris k HPV types (16,18,31,33,35 ,39,4 5,51,52,56,58,5 9,66, 68). The analyt ical performance characteristics of thisassay have been determined by [employer].The modifications h ave not been cleare d or approvedby the FDA. This assay has been validated pursu antto the CLIA regula tions and is used forclinical purposes. For additional information, pl ease refer tohttp://educat ion.CSMG .[employer]/ faq/FQU858e9(Th is link if provide d for information/edu catio nal purposes on ly.) JACEK (test code = RAC) Performing Organization Information: Site ID: IG Name: [facility] Address: [address] [place] [address] Director: Dr. Rajinder Grant Site ID: RGA Name: [facility] Lab Address: [address] [place] [address] Director: Rajinder Grant [facility] CenterTHINPREP TIS PAP AND HPV mRNA E6/E7 REFLEX HPV 16,18/45 2021-06-19 18:43:00 Test Item Value Reference Interpretation Comments Range Clinical information None gi niurka (test code = 14960-6) Date of last NONE GIVEN menstrual period (test code = 8665-2) Prev. pap: (test code NONE G IVEN = 94008-7) Prev. bx: (test code NONE GI NIURKA = 23317-7) Source (test code = [place] [address]-1) Statement of adequacy Satisf actory for (test code = 10786-5) evalua tion.Endocervi cony/transformat ion zone componentpresen t.Age and/or menstrua l status not prov ided Interpretation/result Negati ve for : (test code = intraepitheli al 28547-9) lesion or malignancy. Comment (test code = This Pa p test has ) been evaluated with computerassiste d technology. Review PMT, CT(ASCP)CT extractor filler screening l ocation: (test code = 12370-2) [facility] [address], [place] [address] Comment (test code = VIRGILIO CASTELLANO NOTE: 4511754) The Pap is a screening test for [...] Detected Not Detected Methodo logy: code = 71889-1) Transcriptio n-Mediat ed Amplificatio n This assay dete cts E6/E7 viral messenger RNA ( mRNA) from 14high-ris k HPV types (16,18,31,33,35 ,39,4 5,51,52,56,58,5 9,66, 68). The analyt ical performance characteristics of thisassay have been determined by [employer].The modifications h ave not been cleare d or approvedby the FDA. This assay has been validated pursu antto the CLIA regula tions and is used forclinical purposes. For additional information, pl ease refer tohttp://educat ion.CSMG .com/ faq/UJF232p4(Th is link if provide d for information/edu catio nal purposes on ly.) RAC (test code = RAC) Performing Organization Information: Site ID: IG Name: [facility] Address: [address] [place] [address] Director: Dr. Rajinder Grant Site ID: RGA Name: [facility] Lab Address: [address] [place] [address] Director: Rajinder Grant [facility] CenterTHINPREP TIS PAP AND HPV mRNA E6/E7 REFLEX HPV 16,18/45 2021-06-19 18:43:00 Test Item Value Reference Interpretation Comments Range Clinical information None gi niurka (test code = 95630-2) Date of last NONE GIVEN menstrual period (test code = 8665-2) Prev. pap: (test code NONE G IVEN = 72099-9) Prev. bx: (test code NONE GI NIURKA = 06236-1) Source (test code = [place] 88073-6) Statement of adequacy Satisf actory for (test code = 43674-0) evalua tion.Endocervi cony/transformat ion zone componentpresen t.Age and/or menstrua l status not prov ided Interpretation/result Negati ve for : (test code = intraepitheli al 26871-1) lesion or malignancy. Comment (test code = This Pa p test has ) been evaluated with [employer] d technology. Review PMT, CT(ASCP)CT extractor filler screening l ocation: (test code = 81839-0) [facility] [address], [facility] [address] Comment (test code = EXPLANA TORY NOTE: 2256937) The Pap is a screening test for [...] Detected Not Detected Methodo logy: code = 87805-4) Transcriptio n-Mediat ed Amplificatio n This assay dete cts E6/E7 viral messenger RNA ( mRNA) from 14high-ris k HPV types (16,18,31,33,35 ,39,4 5,51,52,56,58,5 9,66, 68). The analyt ical performance characteristics of thisassay have been determined by [employer].The modifications h ave not been cleare d or approvedby the FDA. This assay has been validated pursu antto the CLIA regula tions and is used forclinical purposes. For additional information, pl ease refer tohttp://educat ion.CSMG .[employer]/ faq/JZD000m1(Th is link if provide d for information/edu catio nal purposes on ly.) JACEK (test code = JACEK) Performing Organization Information: Site ID: IG Name: [facility] Address: [address] [place] [address] Director: Dr. Rajinder Grant Site ID: RGA Name: [facility] Address: [address] [place] [address] Director: Rajinder Grant [facility]URIN[facility], COMPLETE, WITH REFLEX TO [id number] 09:37:00 Test Item Value Reference Interpretation Comments Range Color, UA (test code YELLOW YELLOW = 5778-6) Appearance (test CLEAR CLEAR code = 5767-9) Specific gravity, 1.001-1.035 urine (test code = 5811-5) pH, urine (test code 5.0-8.0 = 5803-2) Glucose, urine (test NEGATIVE NEGATIVE code = 16543-7) Bilirubin, UA (test NEGATIVE NEGATIVE code = 5770-3) Ketones, UA (test NEGATIVE NEGATIVE code = 2514-8) Occult blood, urine NEGATIVE NEGATIVE (test code = 5794-3) Protein, UA (test NEGATIVE NEGATIVE code = 76535-5) Nitrite, UA (test NEGATIVE NEGATIVE code = [...] code = NONE SEEN See_Comment [Autom ated 12291-9) message] The sy stem which generated this result transmitted reference range : < OR = 2 /HPF. Th e reference range was not used to interpret this result as normal/abnormal . Squamous epithelial NONE SEEN See_Comment [Automa aydin cells, UA (test code message ] The system = 10182-5) which generated this result transmitted reference range [...] URINE, code = 630-4) ROUTINE Micro Number: [id number] Test Status: F inal Specimen Source [...] = Performing RAC) Organization Information: Site ID: [facility] Address: [address] [place] [phone] Director: Rajinder Grant Lab Interpretation Abnormal (test code = 78765-9) [facility] [id number] 09:37:00 Test Item Value Reference Interpretation Comments Range Color, UA (test code YELLOW YELLOW = 5778-6) Appearance (test CLEAR CLEAR code = 5767-9) Specific gravity, 1.001-1.035 urine (test code = 5811-5) pH, urine (test code 5.0-8.0 = 5803-2) Glucose, urine (test NEGATIVE NEGATIVE code = 13372-9) Bilirubin, UA (test NEGATIVE NEGATIVE code = 5770-3) Ketones, UA (test NEGATIVE NEGATIVE code = 2514-8) Occult blood, urine NEGATIVE NEGATIVE (test code = 5794-3) Protein, UA (test NEGATIVE NEGATIVE code = 20775-7) Nitrite, UA (test NEGATIVE NEGATIVE code = [...] code = NONE SEEN See_Comment [Autom ated 25609-0) message] The sy stem which generated this result transmitted reference range : < OR = 2 /HPF. Th e reference range was not used to interpret this result as normal/abnormal . Squamous epithelial NONE SEEN See_Comment [Automa aydin cells, UA (test code message ] The system = 55341-5) which generated this result transmitted reference range [...] URINE, code = 630-4) ROUTINE Micro Number: [id number] Test Status: Fi nal Specimen Source [...] may be useful for treatment in penicillin dusyt rgic patients for rectovaginal colonization or for intrapartum prophylaxis if indicated. RAC (test code = Performing RAC) Organization Information: Site ID: [facility]: [facility] Address: [address] [place] [address] Director: Rajinder Grant Lab Interpretation Abnormal (test code = 07383-2) [facility], WITH REFLEX TO [id number] 09:37:00 Test Item Value Reference Interpretation Comments Range Color, UA (test code YELLOW YELLOW = 5778-6) Appearance (test CLEAR CLEAR code = 5767-9) Specific gravity, 1.001-1.035 urine (test code = 5811-5) pH, urine (test code 5.0-8.0 = 5803-2) Glucose, urine (test NEGATIVE NEGATIVE code = 58124-4) Bilirubin, UA (test NEGATIVE NEGATIVE code = 5770-3) Ketones, UA (test NEGATIVE NEGATIVE code = 2514-8) Occult blood, urine NEGATIVE NEGATIVE (test code = 5794-3) Protein, UA (test NEGATIVE NEGATIVE code = 43937-4) Nitrite, UA (test NEGATIVE NEGATIVE code = [...] code = NONE SEEN See_Comment [Autom ated 13927-8) message] The sy stem which generated this result transmitted reference range : < OR = 2 /HPF. Th e reference range was not used to interpret this result as normal/abnormal . Squamous epithelial NONE SEEN See_Comment [Automa aydin cells, UA (test code message ] The system = 43365-0) which generated this result transmitted reference range [...] URINE, code = 630-4) ROUTINE Micro Number: [id number] Test Status: Fi nal Specimen Source [...] RAC) Organization Information: Site ID: [facility] Name: [facility] Address: [address] [place] [phone] Director: Rajinder Grant Lab Interpretation Abnormal (test code = 41751-7) [facility] REFLEX TO [id number] 09:37:00 Test Item Value Reference Interpretation Comments Range Color, UA (test code YELLOW YELLOW = 5778-6) Appearance (test CLEAR CLEAR code = 5767-9) Specific gravity, 1.001-1.035 urine (test code = 5811-5) pH, urine (test code 5.0-8.0 = 5803-2) Glucose, urine (test NEGATIVE NEGATIVE code = 57276-6) Bilirubin, UA (test NEGATIVE NEGATIVE code = 5770-3) Ketones, UA (test NEGATIVE NEGATIVE code = 2514-8) Occult blood, urine NEGATIVE NEGATIVE (test code = 5794-3) Protein, UA (test NEGATIVE NEGATIVE code = 43745-6) Nitrite, UA (test NEGATIVE NEGATIVE code = [...] code = NONE SEEN See_Comment [Autom ated 30745-1) message] The sy stem which generated this result transmitted reference range : < OR = 2 /HPF. Th e reference range was not used to interpret this result as normal/abnormal . Squamous epithelial NONE SEEN See_Comment [Automa aydin cells, UA (test code message ] The system = 54871-8) which generated this result transmitted reference range [...] URINE, code = 630-4) ROUTINE Micro Number: [id number] Test Status: Fi nal Specimen Source [...] RAC) Organization Information: Site ID: [facility] Address: [address] [place] [phone] Director: Rajinder Grant Lab Interpretation Abnormal (test code = 54486-2) [facility] [id number] 09:37:00 Test Item Value Reference Interpretation Comments Range Color, UA (test code YELLOW YELLOW = 5778-6) Appearance (test CLEAR CLEAR code = 5767-9) Specific gravity, 1.001-1.035 urine (test code = 5811-5) pH, urine (test code 5.0-8.0 = 5803-2) Glucose, urine (test NEGATIVE NEGATIVE code = 63812-5) Bilirubin, UA (test NEGATIVE NEGATIVE code = 5770-3) Ketones, UA (test NEGATIVE NEGATIVE code = 2514-8) Occult blood, urine NEGATIVE NEGATIVE (test code = 5794-3) Protein, UA (test NEGATIVE NEGATIVE code = 00023-3) Nitrite, UA (test NEGATIVE NEGATIVE code = [...] code = NONE SEEN See_Comment [Autom ated 08865-9) message] The sy stem which generated this result transmitted reference range : < OR = 2 /HPF. Th e reference range was not used to interpret this result as normal/abnormal . Squamous epithelial NONE SEEN See_Comment [Automa aydin cells, UA (test code message ] The system = 35188-6) which generated this result transmitted reference range [...] URINE, code = 630-4) ROUTINE Micro Number: [id number] Test Status: Fi nal Specimen Source [...] RAC) Organization Information: Site ID: [facility] Address: [address] [place] [address] Director: Rajinder Grant Lab Interpretation Abnormal (test code = 34059-3) [facility] WITH REFLEX TO [id number] 09:37:00 Test Item Value Reference Interpretation Comments Range Color, UA (test code YELLOW YELLOW = 5778-6) Appearance (test CLEAR CLEAR code = 5767-9) Specific gravity, 1.001-1.035 urine (test code = 5811-5) pH, urine (test code 5.0-8.0 = 5803-2) Glucose, urine (test NEGATIVE NEGATIVE code = 62483-8) Bilirubin, UA (test NEGATIVE NEGATIVE code = 5770-3) Ketones, UA (test NEGATIVE NEGATIVE code = 2514-8) Occult blood, urine NEGATIVE NEGATIVE (test code = 5794-3) Protein, UA (test NEGATIVE NEGATIVE code = 43411-2) Nitrite, UA (test NEGATIVE NEGATIVE code = [...] code = NONE SEEN See_Comment [Autom ated 96937-3) message] The sy stem which generated this result transmitted reference range : < OR = 2 /HPF. Th e reference range was not used to interpret this result as normal/abnormal . Squamous epithelial NONE SEEN See_Comment [Automa aydin cells, UA (test code message ] The system = 22991-8) which generated this result transmitted reference range [...] URINE, code = 630-4) ROUTINE Micro Number: [id number] Test Status: Fi nal Specimen Source [...] RAC) Organization Information: Site ID: [facility] Name: [facility] Address: [address] [place] [address] Director: Rajinder Grant Lab Interpretation Abnormal (test code = 99848-8) [facility], WITH REFLEX TO [id number] 09:37:00 Test Item Value Reference Interpretation Comments Range Color, UA (test code YELLOW YELLOW = 5778-6) Appearance (test CLEAR CLEAR code = 5767-9) Specific gravity, 1.009 1.001-1.035 urine (test code = 5811-5) pH, urine (test code 7.0 5.0-8.0 = 5803-2) Glucose, urine (test NEGATIVE NEGATIVE code = 48887-1) Bilirubin, UA (test NEGATIVE NEGATIVE code = 5770-3) Ketones, UA (test NEGATIVE NEGATIVE code = 2514-8) Occult blood, urine NEGATIVE NEGATIVE (test code = 5794-3) Protein, UA (test NEGATIVE NEGATIVE code = 87966-8) Nitrite, UA (test NEGATIVE NEGATIVE code = 5802-4) Leukocyte esterase, TRACE NEGATIVE A UA (test code = 5799-2) WBC, UA (test code = NONE SEEN See_Comment [Autom ated 9121-4) message] The sy stem which generated this result transmitted reference range : < OR = 5 /HPF. Th e reference range was not used to interpret this result as normal/abnormal . RBC, UA (test code = NONE SEEN See_Comment [Autom ated 09416-3) message] The sy stem which generated this result transmitted reference range : < OR = 2 /HPF. Th e reference range was not used to interpret this result as normal/abnormal . Squamous epithelial NONE SEEN See_Comment [Automa aydin cells, UA (test code message ] The system = 31892-4) which generated this result transmitted reference range [...] URINE, code = 630-4) ROUTINE Micro Number: [id number] Test Status: Fi nal Specimen Source [...] RAC) Organization Information: Site ID: [facility] Address: [address] [place] [phone] Director: Rajinder Grant Lab Interpretation Abnormal (test code = 78876-1) [facility] urinalysis [id number] 18:20:00 Test Item Value Reference Range Interpretation Comments Color urine, POC (test Straw code = 0327112) Clarity urine, POC (test Clear code = 0671580) Glucose urine, POC (test Negative Negative code = 8864614) Bilirubin urine, POC Negative Negative (test code = 6278128) Ketones urine, POC (test Negative Negative code = 0118045) Specific gravity urine, 1.005-1.030 POC (test code = 5608594) Blood urine, POC (test Trace Negative A code = 2917696) pH urine, POC (test code See_Comment [A utomated message] = 0062494) The system [employer] generated this result transmitted ref erence range: 5.0, 5.5 , 6.0, 6.5, 7.0, 7.5, 8.0, 8.5. The refere nce range was not u sed to interpret this result as normal/abnor mal. Protein urine, POC (test Negative Negative code = 6961377) Urobilinogen urine, POC <2.0 See_Comment [Au tomated message] (test code = 5438323) The sy stem which generated this result transmitted ref erence range: <=2.0. T he reference range was not used to int erpret this result as normal/abnormal . Nitrite urine, POC (test Negative Negative code = 3124446) Leukocyte esterase Negative Negative urine, POC (test code = 2716462) Lab Interpretation (test Abnormal code = 53986-5) [facility] urinalysis [id number] 18:20:00 Test Item Value Reference Range Interpretation Comments Color urine, POC (test Straw code = 2567256) Clarity urine, POC (test Clear code = 7521651) Glucose urine, POC (test Negative Negative code = 2743775) Bilirubin urine, POC Negative Negative (test code = 2845153) Ketones urine, POC (test Negative Negative code = 2096949) Specific gravity urine, 1.005-1.030 POC (test code = 6825966) Blood urine, POC (test Trace Negative A code = 8526809) pH urine, POC (test code See_Comment [A utomated message] = 6498516) The system [employer] h generated this result transmitted ref erence range: 5.0, 5.5 , 6.0, 6.5, 7.0, 7.5, 8.0, 8.5. The refere nce range was not u sed to interpret this result as normal/abnor mal. Protein urine, POC (test Negative Negative code = 3579605) Urobilinogen urine, POC <2.0 See_Comment [Au tomated message] (test code = 3485290) The sy stem which generated this result transmitted ref erence range: <=2.0. T he reference range was not used to int erpret this result as normal/abnormal . Nitrite urine, POC (test Negative Negative code = 2951027) Leukocyte esterase Negative Negative urine, POC (test code = 4173602) Lab Interpretation (test Abnormal code = 83802-9) [facility] urinalysis [id number] 18:20:00 Test Item Value Reference Range Interpretation Comments Color urine, POC (test Straw code = 5453676) Clarity urine, POC (test Clear code = 8961775) Glucose urine, POC (test Negative Negative code = 6820073) Bilirubin urine, POC Negative Negative (test code = 0904675) Ketones urine, POC (test Negative Negative code = 6497304) Specific gravity urine, 1.005-1.030 POC (test code = 8498152) Blood urine, POC (test Trace Negative A code = 0951844) pH urine, POC (test code See_Comment [A utomated message] = 9022528) The system [employer] generated this result transmitted ref erence range: 5.0, 5.5 , 6.0, 6.5, 7.0, 7.5, 8.0, 8.5. The refere nce range was not u sed to interpret this result as normal/abnor mal. Protein urine, POC (test Negative Negative code = 9929624) Urobilinogen urine, POC <2.0 See_Comment [Au tomated message] (test code = 8072715) The [employer] stem which generated this result transmitted ref erence range: <=2.0. T he reference range was not used to int erpret this result as normal/abnormal . Nitrite urine, POC (test Negative Negative code = 5880280) Leukocyte esterase Negative Negative urine, POC (test code = 8958661) Lab Interpretation (test Abnormal code = 81028-5) [facility] urinalysis [id number] 18:20:00 Test Item Value Reference Range Interpretation Comments Color urine, POC (test Straw code = 0222763) Clarity urine, POC (test Clear code = 6756716) Glucose urine, POC (test Negative Negative code = 9773303) Bilirubin urine, POC Negative Negative (test code = 9630483) Ketones urine, POC (test Negative Negative code = 7455019) Specific gravity urine, 1.005-1.030 POC (test code = 7796430) Blood urine, POC (test Trace Negative A code = 8479088) pH urine, POC (test code See_Comment [A utomated message] = 0826782) The system [employer] generated this result transmitted ref erence range: 5.0, 5.5 , 6.0, 6.5, 7.0, 7.5, 8.0, 8.5. The refere nce range was not u sed to interpret this result as normal/abnor mal. Protein urine, POC (test Negative Negative code = 6662324) Urobilinogen urine, POC <2.0 See_Comment [Au tomated message] (test code = 4203851) The sy stem which generated this result transmitted ref erence range: <=2.0. T he reference range was not used to int erpret this result as normal/abnormal . Nitrite urine, POC (test Negative Negative code = 3961805) Leukocyte esterase Negative Negative urine, POC (test code = 3040819) Lab Interpretation (test Abnormal code = 71514-0) [facility] urinalysis [id number] 18:20:00 Test Item Value Reference Range Interpretation Comments Color urine, POC (test Straw code = 0798708) Clarity urine, POC (test Clear code = 0100629) Glucose urine, POC (test Negative Negative code = 0197701) Bilirubin urine, POC Negative Negative (test code = 2329758) Ketones urine, POC (test Negative Negative code = 8775639) Specific gravity urine, 1.005-1.030 POC (test code = 1736292) Blood urine, POC (test Trace Negative A code = 9868903) pH urine, POC (test code See_Comment [A utomated message] = 5518932) The system [employer] h generated this result transmitted ref erence range: 5.0, 5.5 , 6.0, 6.5, 7.0, 7.5, 8.0, 8.5. The refere nce range was not u sed to interpret this result as normal/abnor mal. Protein urine, POC (test Negative Negative code = 2414986) Urobilinogen urine, POC <2.0 See_Comment [Au tomated message] (test code = 9932517) The sy stem which generated this result transmitted ref erence range: <=2.0. T he reference range was not used to int erpret this result as normal/abnormal . Nitrite urine, POC (test Negative Negative code = 7947495) Leukocyte esterase Negative Negative urine, POC (test code = 8669634) Lab Interpretation (test Abnormal code = 44973-1) [facility] urinalysis [id number] 18:20:00 Test Item Value Reference Range Interpretation Comments Color urine, POC (test Straw code = 6566390) Clarity urine, POC (test Clear code = 8396620) Glucose urine, POC (test Negative Negative code = 2888194) Bilirubin urine, POC Negative Negative (test code = 7410618) Ketones urine, POC (test Negative Negative code = 0174805) Specific gravity urine, 1.005-1.030 POC (test code = 1265104) Blood urine, POC (test Trace Negative A code = 1457663) pH urine, POC (test code See_Comment [A utomated message] = 8336766) The system [employer] generated this result transmitted ref erence range: 5.0, 5.5 , 6.0, 6.5, 7.0, 7.5, 8.0, 8.5. The refere nce range was not u sed to interpret this result as normal/abnor mal. Protein urine, POC (test Negative Negative code = 2271750) Urobilinogen urine, POC <2.0 See_Comment [Au tomated message] (test code = 2993227) The sy stem which generated this result transmitted ref erence range: <=2.0. T he reference range was not used to int erpret this result as normal/abnormal . Nitrite urine, POC (test Negative Negative code = 4954051) Leukocyte esterase Negative Negative urine, POC (test code = 7576202) Lab Interpretation (test Abnormal code = 21563-0) [facility] urinalysis [id number] 18:20:00 Test Item Value Reference Range Interpretation Comments Color urine, POC (test Straw code = 1093560) Clarity urine, POC (test Clear code = 7536755) Glucose urine, POC (test Negative Negative code = 3879653) Bilirubin urine, POC Negative Negative (test code = 9138638) Ketones urine, POC (test Negative Negative code = 4652621) Specific gravity urine, 1.015 1.005-1.030 POC (test code = 2973325) Blood urine, POC (test Trace Negative A code = 8430914) pH urine, POC (test code 8.0 See_Comment [A utomated message] = 8936551) The system [employer] generated this result transmitted ref erence range: 5.0, 5.5 , 6.0, 6.5, 7.0, 7.5, 8.0, 8.5. The refere nce range was not u sed to interpret this result as normal/abnor mal. Protein urine, POC (test Negative Negative code = 0141567) Urobilinogen urine, POC <2.0 <=2.0 (test code = 9314285) Nitrite urine, POC (test Negative Negative code = 9943270) Leukocyte esterase Negative Negative urine, POC (test code = 7024688) Lab Interpretation (test Abnormal code = 79229-9) [facility] (COVID-19) RNA [Presence] in Respiratory specimen by LATESHA with probe [id number] 09:55:01 Test Item Value Reference Range Interpretation Comments SARS-CoV-2 (COVID-19) RNA Not detected Not-Detected [Presence] in Respiratory specimen by LATESHA with probe detection (test code = 06177-3) Whether patient is employed in a healthcare setting (test code = 95802-3) Whether the patient has symptoms related to condition of interest (test code = 91582-5) Patient was hospitalized because of this condition (test code = 11735-6) Whether the patient was admitted to intensive care unit (ICU) for condition of interest (test code = 91017-0) Whether patient resides in a congregate care setting (test code = 40637-4) [facility]) RNA [Presence] in Respiratory specimen by LATESHA with probe [id number] 03:07:44 Test Item Value Reference Range Interpretation Comments SARS-CoV-2 (COVID-19) RNA Not detected Not-Detected [Presence] in Respiratory specimen by LATESHA with probe detection (test code = 74254-0) Whether patient is employed in a healthcare setting (test code = 85708-6) Whether the patient has symptoms related to condition of interest (test code = 09200-0) Patient was hospitalized because of this condition (test code = 43176-4) Whether the patient was admitted to intensive care unit (ICU) for condition of interest (test code = 71693-8) Whether patient resides in a congregate care setting (test code = 98589-6) [facility]hT-1 (COVID-19) RNA [Presence] in Respiratory specimen by LATESHA with probe [id number] 02:34:50 Test Item Value Reference Range Interpretation Comments SARS-CoV-2 (COVID-19) RNA Not detected Not-Detected [Presence] in Respiratory specimen by LATESHA with probe detection (test code = 57774-7) Whether patient is employed in a healthcare setting (test code = 21956-3) Whether the patient has symptoms related to condition of interest (test code = 55958-8) Patient was hospitalized because of this condition (test code = 95961-6) Whether the patient was admitted to intensive care unit (ICU) for condition of interest (test code = 87442-7) Whether patient resides in a congregate care setting (test code = 87930-5) DESI RAI [facility]-CoV-2 (COVID-19) RNA [Presence] in Respiratory specimen by LATESHA with probe [id number] 22:46:50 Test Item Value Reference Range Interpretation Comments SARS-CoV-2 (COVID-19) RNA Not detected Not-Detected [Presence] in Respiratory specimen by LATESHA with probe detection (test code = 03072-4) DESI RAI [facility]-CoV-2 (COVID-19) RNA [Presence] in Respiratory specimen by LATESHA with probe [id number] 10:19:38 Test Item Value Reference Range Interpretation Comments SARS-CoV-2 (COVID-19) RNA Not detected Not-Detected [Presence] in Respiratory specimen by LATESHA with probe detection (test code = 97657-7) [facility] RA[facility]-CoV-2 (COVID-19) RNA [Presence] in Respiratory specimen by LATESHA with probe [id number] 00:17:03 Test Item Value Reference Range Interpretation Comments SARS-CoV-2 (COVID-19) RNA Not detected Not-Detected [Presence] in Respiratory specimen by LATESHA with probe detection (test code = 21229-9) [facility] RAI [facility]-CoV-2 (COVID-19) RNA [Presence] in Respiratory specimen by LATESHA with probe [id number] 00:59:15 Test Item Value Reference Range Interpretation Comments SARS-CoV-2 (COVID-19) RNA Not detected Not-Detected [Presence] in Respiratory specimen by LATESHA with probe detection (test code = 81625-9) [facility]-STAT [id number] 08:12:00 Test Item Value Reference [...] PELVIS WITHOUT CONTRAST, RENAL STONE PROTOCOL:Location code: [id number] HISTORY: Flank painCOMPARISON: CT abdomen and pelvis [...] Range Interpretation Comments COLOR (test code = Giles YELLOW A COLU) CLARITY (test code = [...] 11:03:05CT abdomen and pelvis with contrastLocation Code: [id number] HISTORY: Lower abdominal painCOMPARISON: NoneTechnique: Helical CT [...]
[2023-02-18 17:24] LABS: Absolute Lymphocytes (CBC) 1.7 K/uL (0.7-4.9); Hematocrit 46.2 % (36.0-45.0); Lymphocytes % 16.4 % (15.3-44.8); MCV 93.3 fL (80-100); MPV 7.8 fL (7.6-11.3); Platelets 246 thou/uL (152-406); RBC Red Blood Cell Count 4.95 M/uL (3.86-4.86)
[2023-02-18 17:26] LABS: Specific Gravity < 1.005 (1.005-1.030); Urine Bacteria None Seen /HPF (<20); Urine Bilirubin NEGATIVE (Negative); Urine Blood Negative (Negative); Urine Clarity Clear (Clear); Urine Color Colorless (Yellow); Urine Crystals Unidentified Few /HPF (None Seen); Urine Glucose NEGATIVE (Negative); Urine Protein NEGATIVE (Negative); Urine RBC <5 /HPF (None Seen); Urine Urobilinogen Normal (Normal)
[2023-02-18 17:43] LABS: Magnesium 2.3 mg/dL (1.6-2.4); Potassium 4.4 mEq/L (3.5-5.1)
--- NOTE | 2023-02-18 17:44 | RAD REPORT ---
EXAM DESCRIPTION: RADChest Single View02/18/2023 5:03 pm CLINICAL HISTORY: SOB COMPARISON: Chest Single View dated 12/27/2022; Chest Single View dated 12/03/2022; Chest Pa And Lat ( 2 Views) dated 11/16/2022; Chest Pa And Lat (2 Views) dated 10/19/2022 TECHNIQUE: Portable AP view of the chest. FINDINGS: The lungs are clear. No pneumothorax or effusion. The cardiomediastinal contours are unre markable. IMPRESSION: No acute cardiopulmonary process.
[2023-02-18] MEDS ORDERED: LORazepam 2 MG/ML VIAL ONE (17:52)
[2023-02-18] MEDS ORDERED: KETOROLAC 30 MG/ML INJ ONE (17:58)
--- NOTE | 2023-02-18 20:04 | RAD REPORT ---
EXAM DESCRIPTION: MRI - Brain Wo Cont - 02/18/2023 7:11 pm CLINICAL HISTORY: DIZZINESS COMPARISON: None available TECHNIQUE: Multiplanar multisequence MRI of the brain performed without IV contrast. FINDINGS: No evidence of acute infarct or other diffusion signal abnormality. No evidence of acute intracranial hemorrhage or abnormal extra-axial fluid collections. Ventricular caliber within normal for age. Left tonsillar descent, extending approximately 7 millimet er below the level of the foramen magnum. This is nonspecific. Other midline structures are unremarka ble. Left parasagittal frontal cortical and subcortical focal T2 hyperintensity, see series 4, image 14 am juan others. No mass effect or midline shift. Major vascular flow voids are preserved. Mastoid air cells and paranasal sinuses are clear. IMPRESSION: Focal left parasagittal frontal cortical and subcortical T2 hyperintensity. Differential considerations are broad, findings may relate to sequelae of remote ischemia, infection/ inflammatio n, vasculitis, or postictal changes. Demyelinating disease and malignancy are considered less likely. No other acute intracranial process. No evidence of ventriculomegaly or mass effect Nonspecific mild left tonsillar descent.
--- NOTE | 2023-02-18 20:13 | RAD REPORT ---
EXAM DESCRIPTION: MRI - C Spine Wo Cont - 02/18/2023 7:12 pm CLINICAL HISTORY: Pain COMPARISON: None. TECHNIQUE: Multiplanar multisequence MRI of the cervical spine, obtained without IV contrast. FINDINGS: Cervical vertebral bodies are normal in height. Straightening of normal cervical lordosis. Posterior decompression spanning C3 -C6, and posterior approach fusion hardware at the same levels. Interbody spacers spanning C4-5 through C7-T1 levels. Susceptibility artifact limits evaluation. No s uspicious marrow edema or marrow replacing process. Cerebellar tonsils and mid-line skull base show no suspicious finding. No significant finding at the C1 and C2 levels. C2-3 level: No significant canal stenosis. Asymmetric right uncovertebral joint arthropathy contribut es to mild right neural foraminal narrowing. C3-4 level: Mild broad-based disc bulge. No significant central canal stenosis. Asymmetric mild right neural foraminal narrowing secondary to facet and uncovertebral joint changes. C4-5 and C5-6 level: Partial ankylosis across the disc space. No residual canal stenosis, although th ere is mild posterior CSF space effacement opposite C6. Limited evaluation of the neural foramina giv en susceptibility artifact. C6-7 level: No significant findings. C7-T1 level: No significant findings. Cervical cord shows mild focal narrowing opposite C6 level, seen on sagittal views only. There may be mild associated T2 hyperintensity at that level. No cord edema, expansion or mass. IMPRESSION: Sequelae of posterior decompression and fusion spanning C3-C7. No residual canal stenosi s. Mild neural foraminal narrowing noted on the right at C2-3 and C3-4. Neural foramina difficult to evaluate at the lower levels given the extent of hardware related susceptibility artifact. 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
--- NOTE | 2023-02-18 21:04 | EDPHYS ---
Physician Documentation [facility] Name: Fany Meza Age: 52 yrs Sex: Female : 1970 Arrival Date: 02/18/2023 Time: 15:55 Bed DIS1 Private MD: ED Physician Chris Grimes HPI: 02/18 16:45 This 52 yrs old Female presents to ER via Ambulatory with complaints of Breathing cp Difficulty, Dizziness, Headache, High Blood Pressure. 16:45 The patient or guardian complains of worsening of chronic pain. The patient complains cp of pain to the top of head and forehead. The patient describes the headache as aching, waxing and waning. Onset: The symptoms/episode began/occurred 1 week(s) ago. Associated signs and symptoms: Pertinent positives: neck stiffness, dizziness today and left facial numbness, Pertinent negatives: vision changes, weakness. Patient is a 52-year-old female with past surgical history of cervical spine fusion who presents to the emergency department with complaints of headache for the past week increased neck pain and some left facial numbness. Patient presents with the CT report from another hospital that showed concern that she had a loose hardware of her cervical spine. Patient reports she has an upcoming appointment with neurosurgeon for evaluation of this but due to the headache, increased neck pain and facial numbness she feels as though she needs an MRI. Historical: - Allergies: 16:22 No Known Allergies; kd3 - PMHx: 16:22 cervical cancer; Hep C; Hep C; Hep C; Hep C; Hep C; Hypertensive disorder; Hep C; kd3 - PSHx: 16:22 section; neck; kd3 - Immunization history:: Adult Immunizations up to date. - Social history:: Smoking status: Patient reports the use of cigarette tobacco products, smokes one-half pack cigarettes per day. ROS: 16:50 Constitutional: Negative for body aches, chills, fever, poor PO intake, cp 16:50 Eyes: Negative for injury, pain, redness, and discharge, cp 16:50 Neck: Positive for pain with movement, pain at rest, stiffness, 16:50 Cardiovascular: Negative for chest pain, edema, palpitations, 16:50 Respiratory: Positive for shortness of breath, Negative for cough, wheezing, 16:50 Abdomen/GI: Negative for abdominal pain, nausea, vomiting, and diarrhea, 16:50 Skin: Negative for cellulitis, rash, 16:50 Neuro: Positive for dizziness, headache, Negative for altered mental status, weakness, 16:50 All other systems are negative, Exam: 16:55 Constitutional: The patient appears in no acute distress, alert, awake, cp non-diaphoretic, non-toxic, well developed, well nourished, 16:55 Head/Face: Normocephalic, atraumatic. cp 16:55 Eyes: Periorbital structures: appear normal, Pupils: equal, round, and reactive to light and accomodation, Extraocular movements: intact throughout, Conjunctiva: normal, no exudate, no injection, Sclera: no appreciated abnormality, Lids and lashes: appear normal, bilaterally, 16:55 ENT: External ear(s): are unremarkable, Ear canal(s): are normal, clear, TM's: dullness, bilaterally, Nose: is normal, Mouth: Lips: moist, Oral mucosa: pink and intact, moist, Posterior pharynx: is normal, airway is patent, no erythema, no exudate, 16:55 Neck: ROM/movement: pain, that is moderate, with any movement, Meningeal signs: are not present, nuchal rigidity, is not appreciated, 16:55 Chest/axilla: Inspection: normal, 16:55 Cardiovascular: Rate: normal, Rhythm: regular, Pulses: Pulses are 2+ in right radial artery and left radial artery. 16:55 Respiratory: the patient does not display signs of respiratory distress, Respirations: normal, no use of accessory muscles, no retractions, labored breathing, is not present, Breath sounds: are clear throughout, no decreased breath sounds, no stridor, no wheezing, 16:55 Abdomen/GI: Exam negative for discomfort, distension, guarding, Inspection: abdomen appears normal, 16:55 Neuro: Orientation: to person, place \T\ time. Mentation: is normal, Cerebellar function: is grossly normal, Motor: moves all fours, strength is normal, Sensation: numbness, that is mild, of the left side of face, Gait: is steady, Vital Signs: 16:20 BP 122 / 87; Pulse 74; Resp 17; Temp 98.9(O); Pulse Ox 100% on R/A; Weight 78.93 kg; kd3 Height 5 ft. 4 in. ; 21:15 BP 121 / 85; Pulse 71; Resp 17; Temp 98; Pulse Ox 99% ; rv 16:20 Body Mass Index 29.87 (78.93 kg, 162.56 cm) kd3 MDM: 16:29 Patient medically screened. cp 21:03 Data reviewed: vital signs, nurses notes, lab test result(s), EKG, radiologic studies, cp MRI. 21:03 Differential diagnosis: C-Spine Fracture cervical strain, Spinal Cord Compression. I cp considered the following discharge prescriptions or medication management in the emergency department Medications were administered in the Emergency Department. See MAR. Counseling: I had a detailed discussion with the patient and/or guardian regarding the historical points, exam findings, and any diagnostic results supporting the discharge/admit diagnosis, lab results, radiology results, the need for outpatient follow up, a neurosurgeon, to return to the emergency department if symptoms worsen or persist or if there are any questions or concerns that arise at home. Response to treatment: the patient's symptoms have mildly improved after treatment, and as a result, I will discharge patient. 02/18 16:36 Order name: Basic Metabolic Panel; Complete Time: 20:17 02/18 20:17 Interpretation: Normal except: CL 109; GLUC 107; GFR 87. 02/18 16:36 Order name: CBC with Diff; Complete Time: 17:35 02/18 20:20 Interpretation: Normal except: RBC 4.95; HGB 15.7; HCT 46.2; SIERRA% 74.8. 02/18 16:36 Order name: Magnesium; Complete Time: 20:17 02/18 16:36 Order name: PT-INR; Complete Time: 20:17 cp 02/18 16:36 Order name: Troponin HS; Complete Time: 20:17 cp 02/18 16:36 Order name: Urinalysis W/Microscopic; Complete Time: 17:35 cp 02/18 16:36 Order name: XRAY Chest (1 view); Complete Time: 20:17 cp 02/18 16:57 Order name: MRI - Brain Wo Cont; Complete Time: 20:17 cp 02/18 17:21 Order name: C Spine Wo Cont; Complete Time: 20:17 EDMS 02/18 16:36 Order name: Cardiac monitoring 02/18 16:36 Order name: EKG - Nurse/Tech 02/18 16:36 Order name: IV Saline Lock 02/18 16:36 Order name: Labs collected and sent 02/18 16:36 Order name: O2 Per Protocol 02/18 16:36 Order name: O2 Sat Monitoring cp Administered Medications: 17:35 CANCELLED (Physician Discretion): lorazepam1 mg PO once cp 17:48 Drug: Ketorolac IVP 15 mg IVP once Route: IVP; Site: left antecubital; iw 21:15 Follow up: Response: No adverse reaction rv 18:33 Drug: Ativan IVP 1 mg IVP once Route: IVP; Site: right antecubital; iw 21:15 Follow up: Response: No adverse reaction rv 21:15 Drug: Decadron - Dexamethasone IVP 10 mg IVP once Route: IVP; Site: right antecubital; rv 21:15 Follow up: Response: Medication administered at discharge. rv 21:15 Drug: morphine IVP or IV 4 mg IVP once over 4 mins Route: IVP; Infused Over: 4 mins; rv Site: right antecubital; 21:15 Follow up: Response: Medication administered at discharge. rv Disposition Summary: 02/18/23 21:04 Discharge Ordered Notes: Location: Home cp Problem: new cp Symptoms: have improved cp Condition: Stable cp Diagnosis - Headache cp - Cervicalgia cp - Dizziness and giddiness cp Followup: cp - With: Private Physician - When: 1 - 2 days - Reason: Recheck today's complaints Discharge Instructions: - Discharge Summary Sheet cp - Dizziness cp - General Headache Without Cause cp - Heat Therapy cp - Neck Exercises cp Forms: - Medication Reconciliation Form cp - Thank You Letter cp - Antibiotic Education cp - Prescription Opioid Use cp - Patient Portal Instructions cp - Leadership Thank You Letter cp Prescriptions: - Ibuprofen 800 mg Oral Tablet - take 1 tablet ORAL route every 8 hours As needed take with food; 30 tablet; cp Refills: 0, Product Selection Permitted - Baclofen 10 mg Oral Tablet - take 1 tablet ORAL route 3 times per day; 20 tablet; Refills: 0, Product cp Selection Permitted - Medrol ([place]) 4 mg Oral Tablets, Dose Pack - take 1 tablet ORAL route as directed - follow package instructions; 1 packet; cp Refills: 0, Product Selection Permitted Addendum: 02/20/2023 19:33 I was immediately available on-site in the Emergency Department for consultation in the m s3 care of the patient. Signatures: Dispatcher [employer] EDCherelle Willis, RN RN Nigel Uriarte PA PA cp Vicente, Ronaldo, RN RN Chris Almanza, DO ms3 Jacqui Fajardo RN RN kd3 Corrections: (The following items were deleted from the chart) 02/18 17:21 16:57 Neck Without Cont+MRI.RAD.BRZ ordered. EDMS EDMS 17:35 17:35 LORazepam PO 1 mg PO once ordered. cp cp
--- NOTE | 2023-02-18 21:04 | ER ---
Nurse's Notes [facility] Name: Fany Meza Age: 52 yrs Sex: Female : 1970 Arrival Date: 02/18/2023 Time: 15:55 Bed DIS1 Private MD: Diagnosis: Headache;Cervicalgia;Dizziness and giddiness Presentation: 02/18 16:20 Chief complaint: Patient states: Every since i got to work today, i have been super kd3 dizzy and i have been having head aches for about a week, my blood pressure has been going up and down. I have right sided facial numbness that started in the last hour. I have a screw that's out of the bone in my neck from a past surgery. I think i need an MRI. Coronavirus screen: Vaccine status: Patient reports receiving the 2nd dose of the covid vaccine. Ebola Screen: No symptoms or risks identified at this time. Initial Sepsis Screen: Does the patient meet any 2 criteria? No. Patient's initial sepsis screen is negative. Does the patient have a suspected source of infection? No. Patient's initial sepsis screen is negative. Risk Assessment: Do you want to hurt yourself or someone else? Patient reports no desire to harm self or others. Onset of symptoms was February 18, 2023. 16:20 Method Of Arrival: Ambulatory kd3 16:20 Acuity: SHARAN 3 kd3 Triage Assessment: 16:22 General: Appears in no apparent distress. Behavior is calm, cooperative. Pain: kd3 Complains of pain in headache. Respiratory: No deficits noted. Historical: - Allergies: 16:22 No Known Allergies; kd3 - PMHx: 16:22 cervical cancer; Hep C; Hep C; Hep C; Hep C; Hep C; Hypertensive disorder; Hep C; kd3 - PSHx: 16:22 section; neck; kd3 - Immunization history:: Adult Immunizations up to date. - Social history:: Smoking status: Patient reports the use of cigarette tobacco products, smokes one-half pack cigarettes per day. Screenin:34 [facility] ED Fall Risk Assessment (Adult) Score/Fall Risk Level 0 - 2 = Low Risk. Abuse iw screen: Denies threats or abuse. Denies injuries from another. Nutritional screening: No deficits noted. Tuberculosis screening: No symptoms or risk factors identified. Assessment: 18:34 Reassessment: Patient appears in no apparent distress at this time. Patient and/or iw family updated on plan of care and expected duration. Pain level reassessed. Patient is alert, oriented x 3, equal unlabored respirations, skin warm/dry/pink. Vital Signs: 16:20 BP 122 / 87; Pulse 74; Resp 17; Temp 98.9(O); Pulse Ox 100% on R/A; Weight 78.93 kg; kd3 Height 5 ft. 4 in. ; 21:15 BP 121 / 85; Pulse 71; Resp 17; Temp 98; Pulse Ox 99% ; rv 16:20 Body Mass Index 29.87 (78.93 kg, 162.56 cm) kd3 ED Course: 15:57 Patient arrived in ED. mr 16:22 Triage completed. kd3 16:22 Arm band placed on right wrist. kd3 16:29 Nigel Oliver PA is PHCP. cp 16:29 Chris Grimes DO is Attending Physician. cp 17:05 XRAY Chest (1 view) In Process Unspecified. EDMS 19:12 MRI - Brain Wo Cont In Process Unspecified. EDMS 19:13 C Spine Wo Cont In Process Unspecified. EDMS 21:15 Bear Luevano, RN is Primary Nurse. rv 21:16 IV discontinued, intact, bleeding controlled, No redness/swelling at site. Pressure rv dressing applied, g20 rac. Administered Medications: 17:35 CANCELLED (Physician Discretion): lorazepam1 mg PO once cp 17:48 Drug: Ketorolac IVP 15 mg IVP once Route: IVP; Site: left antecubital; iw 21:15 Follow up: Response: No adverse reaction rv 18:33 Drug: Ativan IVP 1 mg IVP once Route: IVP; Site: right antecubital; iw 21:15 Follow up: Response: No adverse reaction rv 21:15 Drug: Decadron - Dexamethasone IVP 10 mg IVP once Route: IVP; Site: right antecubital; rv 21:15 Follow up: Response: Medication administered at discharge. rv 21:15 Drug: morphine IVP or IV 4 mg IVP once over 4 mins Route: IVP; Infused Over: 4 mins; rv Site: right antecubital; 21:15 Follow up: Response: Medication administered at discharge. rv Outcome: 21:04 Discharge ordered by MD. cp 21:16 Discharged to home ambulatory, with family, rv 21:16 Condition: good 21:16 Discharge instructions given to patient, Instructed on discharge instructions, follow up and referral plans. medication usage, Demonstrated understanding of instructions, follow-up care, medications, Prescriptions given X 3, 21:16 Patient left the ED. rv Signatures: Dispatcher [employer] EDMS Christina Cook, Reg Reg mr Cherelle Moreau, RN RN iw Nigel Oliver PA PA cp Vicente, Ronaldo, RN RN rv Jacqui Fajardo, RN RN kd3
[2023-02-18] MEDS ORDERED: MORPHINE 4 MG/ML SYR ONE (21:21)
[2023-02-18] MEDS ORDERED: dexAMETHasone 4 MG/ML VIAL ONE (21:21)
[2023-02-18 21:24] VITALS: BP 121/85; TEMP 98; O2SAT 99
== END 2023-02-18 21:16 | disposition home or self-care (01) ==
LOC: ER 15:55
DX: R51.9 Headache, unspecified (principal); M54.2 Cervicalgia; R42 Dizziness and giddiness
CPT/HCPCS: 36415; 70551; 71045; 72141; 80048; 81001; 83735; 84484; 85025; 85610; 99284; J1100

== ENCOUNTER 2023-03-06 20:19 | Emergency (ER) | payer SELFPAY ==
--- OUTSIDE RECORDS SUMMARY | 2023-03-06 20:34 | XMS REPORT | Continuity of Care Document ---
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 [facility] 5-325 mg 00 :00 every 6 l per tablet (six) hours as needed for moderate pain or severe pain for up to 2 days .acute pain. Max Daily Amount: 4 tablets HYDROcodone 1{tbl} Q6H Take 1 [facility] -acetaminop 6-23 06-[address] [facility] ([facility]) 00:00: 04:59 [facility] 5-325 mg 00 :00 every 6 l per tablet (six) hours as needed for moderate pain or severe pain for up to 2 days .acute pain. Max Daily Amount: 4 tablets HYDROcodone 2021- 1{tbl} Q6H Take 1 [facility] -acetaminop 6-23 06-[address] [facility] ([facility]) 00:00: 04:59 [facility] 5-325 mg 00 :00 every 6 l per tablet (six) hours as needed for moderate pain or severe pain for up to 2 days .acute pain. Max Daily Amount: 4 tablets HYDROcodone 1{tbl} Q6H Take 1 [facility] -acetaminop 6-23 06-[address] [facility] ([facility]) 00:00: 04:59 [facility] 5-325 mg 00 :00 every 6 l per tablet (six) hours as needed for moderate pain or severe pain for up to 2 days .acute pain. Max Daily Amount: 4 tablets HYDROcodone 2022-0 2021- No [id number] 1{tbl} Q6H Take 1 [facility] -acetaminop 6-23 06-[address] [facility] ([facility]) 00:00: 04:59 [facility] 5-325 mg 00 :00 every 6 l per tablet (six) hours as needed for moderate pain or severe pain for up to 2 days .acute pain. Max Daily Amount: 4 tablets HYDROcodone 2022-0 2021- No [id number] 1{tbl} Q6H Take 1 [facility] -acetaminop 6-23 06-[address] [facility] ([facility]) 00:00: 04:59 [facility] 5-325 mg 00 :00 every 6 l per tablet (six) hours as needed for moderate pain or severe pain for up to 2 days .acute pain. Max Daily Amount: 4 tablets HYDROcodone 2-0 2021- No [id number] 1{tbl} Q6H Take 1 [facility] -acetaminop 6-23 06-[address] [facility] ([facility]) 00:00: 04:59 [facility] 5-325 mg 00 :00 every 6 l per tablet (six) hours as needed for moderate pain or severe pain for up to 2 days .acute pain. Max Daily Amount: 4 tablets HYDROcodone 2022-0 2021- No [id number] 1{tbl} Q6H Take 1 [facility] -acetaminop 6-23 06-[address] [facility] ([facility]) 00:00: 04:59 [facility] 5-325 mg 00 :00 every 6 l per tablet (six) hours as needed for moderate pain or severe pain for up to 2 days .acute pain. Max Daily Amount: 4 tablets HYDROcodone 2022-0 2021- No [id number] 1{tbl} Q6H Take 1 [facility] -acetaminop 6-23 06-[address] [facility] ([facility]) 00:00: 04:59 [facility] 5-325 mg 00 :00 every 6 l per tablet (six) hours as needed for moderate pain or severe pain for up to 2 days .acute pain. Max Daily Amount: 4 tablets HYDROcodone 2022-0 2021- No [id number] 1{tbl} Q6H Take 1 [facility] -acetaminop 6-21 06-[address] [facility] ([facility]) 00:00: 00:00 [facility] 5-325 mg 00 :00 every 6 l per tablet (six) hours as needed for moderate pain or severe pain for up to 2 days .acute pain. Max Daily Amount: 4 tablets HYDROcodone 2-0 2021- No [id number] 1{tbl} Q6H Take 1 [facility] -acetaminop 6-21 06-[address] [facility] ([facility]) 00:00: 00:00 [facility] 5-325 mg 00 :00 every 6 l per tablet (six) hours as needed for moderate pain or severe pain for up to 2 days .acute pain. Max Daily Amount: 4 tablets HYDROcodone 2021-0 2021- No [id number] 1{tbl} Q6H Take 1 [facility] -acetaminop 6-21 06-[address] [facility] ([facility]) 00:00: 00:00 [facility] 5-325 mg 00 :00 every 6 l per tablet (six) hours as needed for moderate pain or severe pain for up to 2 days .acute pain. Max Daily Amount: 4 tablets HYDROcodone 2021-0 2021- No [id number] 1{tbl} Q6H Take 1 [facility] -acetaminop 6-21 06-[address] [facility] ([facility]) 00:00: 00:00 [facility] 5-325 mg 00 :00 every 6 l per tablet (six) hours as needed for moderate pain or severe pain for up to 2 days .acute pain. Max Daily Amount: 4 tablets HYDROcodone 2-0 2021- No [id number] 1{tbl} Q6H Take 1 [facility] -acetaminop 6-21 06-[address] [facility] ([facility]) 00:00: 00:00 [facility] 5-325 mg 00 :00 every 6 l per tablet (six) hours as needed for moderate pain or severe pain for up to 2 days .acute pain. Max Daily Amount: 4 tablets HYDROcodone 2022-0 2021- No [id number] 1{tbl} Q6H Take 1 [facility] -acetaminop 6-21 06-[address] [facility] ([facility]) 00:00: 00:00 [facility] 5-325 mg 00 :00 every 6 l per tablet (six) hours as needed for moderate pain or severe pain for up to 2 days .acute pain. Max Daily Amount: 4 tablets HYDROcodone 2021-0 No 1{tbl} Q6H Take 1 [facility] -acetaminop 6-21 06-[address] [facility] ([facility]) 00:00: 00:00 [facility] 5-325 mg 00 :00 every 6 l per tablet (six) hours as needed for moderate pain or severe pain for up to 2 days .acute pain. Max Daily Amount: 4 tablets HYDROcodone 2021-0 1{tbl} Q6H Take 1 [facility] -acetaminop 6-21 06-23 tablet by [facility]) 00:00: 00:00 mouth [facility] 5-325 mg 00 :00 every 6 l per tablet (six) hours as needed for moderate pain or severe pain for up to 2 days .acute pain. Max Daily Amount: 4 tablets HYDROcodone 2021-0 1{tbl} Q6H Take 1 [facility] -acetaminop 6-21 06-23 tablet by [facility] ([employer]) 00:00: 00:00 [facility] 5-325 mg 00 :00 every 6 l per tablet (six) hours as needed for moderate pain or severe pain for up to 2 days .acute pain. Max Daily Amount: 4 tablets HYDROcodone 2021-0 No 1{tbl} Q6H Take 1 [facility] -acetaminop 6-21 06-[address] [facility] ([facility]) 00:00: 00:00 [facility] 5-325 mg 00 :00 every 6 l per tablet (six) hours as needed for moderate pain or severe pain for up to 2 days .acute pain. Max Daily Amount: 4 tablets HYDROcodone 2021-0 No 1{tbl} Q6H Take 1 [facility] -acetaminop 6-21 06-[address] [facility] ([facility]) 00:00: 00:00 [facility] 5-325 mg 00 :00 every 6 l per tablet (six) hours as needed for moderate pain or severe pain for up to 2 days .acute pain. Max Daily Amount: 4 tablets HYDROcodone 2022-0 2021- No [id number] 1{tbl} Q6H Take 1 [facility] -acetaminop 6-21 06-[address] [facility] ([facility]) 00:00: 00:00 [facility] 5-325 mg 00 :00 every 6 l per tablet (six) hours as needed for moderate pain or severe pain for up to 2 days .acute pain. Max Daily Amount: 4 tablets HYDROcodone 2-0 2021- No [id number] 1{tbl} Q6H Take 1 [facility] -acetaminop 6-21 06-[address] [facility] ([facility]) 00:00: 00:00 [facility] 5-325 mg 00 :00 every 6 l per tablet (six) hours as needed for moderate pain or severe pain for up to 2 days .acute pain. Max Daily Amount: 4 tablets HYDROcodone 2-0 2021- No [id number] 1{tbl} Q6H Take 1 [facility] -acetaminop 6-21 06-[address] [facility] ([facility]) 00:00: 00:00 [facility] 5-325 mg 00 :00 every 6 l per tablet (six) hours as needed for moderate pain or severe pain for up to 2 days .acute pain. Max Daily Amount: 4 tablets HYDROcodone 2-0 2021- No [id number] 1{tbl} Q6H Take 1 [facility] -acetaminop 6-21 06-[address] [facility] ([facility]) 00:00: 00:00 [facility] 5-325 mg 00 :00 every 6 l per tablet (six) hours as needed for moderate pain or severe pain for up to 2 days .acute pain. Max Daily Amount: 4 tablets HYDROcodone 2022-0 2021- [place] [id number] 1{tbl} Q6H Take 1 [facility] -acetaminop 6-21 06-[address] [facility] ([facility]) 00:00: 00:00 [facility] 5-325 mg 00 :00 every 6 l per tablet (six) hours as needed for moderate pain or severe pain for up to 2 days .acute pain. Max Daily Amount: 4 tablets HYDROcodone 2022-0 2021- No 1{tbl} Q6H Take 1 [facility] -acetaminop 6-21 06-[address] [facility] ([facility]) 00:00: 00:00 [facility] 5-325 mg 00 :00 every 6 l per tablet (six) hours as needed for moderate pain or severe pain for up to 2 days .acute pain. Max Daily Amount: 4 tablets HYDROcodone 2021-0 2021- No 1{tbl} Q6H Take 1 [facility] -acetaminop 6-21 06-[address] [facility] ([facility]) 00:00: 00:00 [facility] 5-325 mg 00 :00 every 6 l per tablet (six) hours as needed for moderate pain or severe pain for up to 2 days .acute pain. Max Daily Amount: 4 tablets HYDROcodone 2021-0 2021- 1{tbl} Q6H Take 1 [facility] -acetaminop 6-21 06-[address] [facility] ([facility]) 00:00: 00:00 [facility] 5-325 mg 00 :00 every 6 l per tablet (six) hours as needed for moderate pain or severe pain for up to 2 days .acute pain. Max Daily Amount: 4 tablets HYDROcodone 2021-0 2021- 1{tbl} Q6H Take 1 [facility] -acetaminop 6-21 06-[address] [facility] ([facility]) 00:00: 00:00 [facility] 5-325 mg 00 :00 every 6 l per tablet (six) hours as needed for moderate pain or severe pain for up to 2 days .acute pain. Max Daily Amount: 4 tablets HYDROcodone 2021-0 2021- No 1{tbl} Q6H Take 1 [facility] -acetaminop 6-21 06-[address] [facility] ([facility]) 00:00: 00:00 [facility] 5-325 mg 00 :00 every 6 l per tablet (six) hours as needed for moderate pain or severe pain for up to 2 days .acute pain. Max Daily Amount: 4 tablets HYDROcodone 2021-0 2021- No 1{tbl} Q6H Take 1 [facility] -acetaminop 6-21 06-[address] [facility] ([facility]) 00:00: 00:00 [facility] 5-325 mg 00 :00 every 6 l per tablet (six) hours as needed for moderate pain or severe pain for up to 2 days .acute pain. Max Daily Amount: 4 tablets HYDROcodone 2022-0 2021- No [id number] 1{tbl} Q6H Take 1 [facility] -acetaminop 6-21 06-[address] [facility] ([facility]) 00:00: 00:00 [facility] 5-325 mg 00 :00 every 6 l per tablet (six) hours as needed for moderate pain or severe pain for up to 2 days .acute pain. Max Daily Amount: 4 tablets HYDROcodone 2022-0 2021- No [id number] 1{tbl} Q6H Take 1 [facility] -acetaminop 6-21 06-[address] [facility] ([facility]) 00:00: 00:00 [facility] 5-325 mg 00 :00 every 6 l per tablet (six) hours as needed for moderate pain or severe pain for up to 2 days .acute pain. Max Daily Amount: 4 tablets HYDROcodone 2022-0 2021- No [id number] 1{tbl} Q6H Take 1 [facility] -acetaminop 6-21 06-[address] [facility] ([facility]) 00:00: 00:00 mouth [facility] 5-325 mg 00 :00 every 6 l per tablet (six) hours as needed for moderate pain or severe pain for up to 2 days .acute pain. Max Daily Amount: 4 tablets HYDROcodone 2022-0 2021- No [id number] 1{tbl} Q6H Take 1 [facility] -acetaminop 6-21 06-[address] [facility] ([facility]) 00:00: 00:00 [facility] 5-325 mg 00 :00 every 6 l per tablet (six) hours as needed for moderate pain or severe pain for up to 2 days .acute pain. Max Daily Amount: 4 tablets HYDROcodone 2022-0 2- No [id number] 1{tbl} Q6H Take 1 [facility] -acetaminop 6-21 06-[address] [facility] ([facility]) 00:00: 00:00 [facility] 5-325 mg 00 :00 every 6 l per tablet (six) hours as needed for moderate pain or severe pain for up to 2 days .acute pain. Max Daily Amount: 4 tablets HYDROcodone 2022-0 2022- No [id number] 1{tbl} Q6H Take 1 [facility] -acetaminop 6-21 06-[address] [facility] ([facility]) 00:00: 00:00 [facility] 5-325 mg 00 :00 every 6 l per tablet (six) hours as needed for moderate pain or severe pain for up to 2 days .acute pain. Max Daily Amount: 4 tablets HYDROcodone 2022-0 2022- [place] [id number] 1{tbl} Q6H Take 1 [facility] -acetaminop 6-21 06-[address] [facility] ([facility]) 00:00: 00:00 [facility] 5-325 mg 00 :00 every 6 l per tablet (six) hours as needed for moderate pain or severe pain for up to 2 days .acute pain. Max Daily Amount: 4 tablets HYDROcodone 2022-0 2022- [place] [id number] 1{tbl} Q6H Take 1 [facility] -acetaminop 6-21 -[address] [facility] ([facility]) 00:00: 00:00 [facility] 5-325 mg [...] DAILY WITH MEALS meclizine 2021- No 25mg Q.[id number] Take 1 [facility] ([facility]) 08-26 [id number] tablet (25 st 25 mg 00:00: 00:00 3D mg total) Hospit a tablet 00 :00 by mouth 3 l (three) times a day as needed for dizziness for up to 30 days. meclizine 2021- No 25mg Q.26407466 Take 1 [facility] ([facility]) 08-26- [id number] tablet (25 st 25 mg 00:00: 00:00 3D mg total) Hospit a tablet 00 :00 by mouth 3 l (three) times a day as needed for dizziness for up to 30 days. meclizine 2021-2021- No 25mg Q.82418411 Take 1 [facility] ([facility]) 08-26 [id number] tablet (25 st 25 mg 00:00: 00:00 3D mg total) Hospit a tablet 00 :00 by mouth 3 l (three) times a day as needed for dizziness for up to 30 days. meclizine 2021-0 2022- No 25mg Q.[id number] Take 1 [facility] ([facility]) 517 -10 [id number] tablet (25 st 25 mg 00:00: 00:00 3D mg total) Hospit a tablet 00 :00 by mouth 3 l (three) times a day as needed for dizziness for up to 30 days. meclizine 2021-0 202- No 25mg Q.[id number] Take 1 [facility] ([facility]) 517 -10 [id number] tablet (25 st 25 mg 00:00: 00:00 3D mg total) Hospit a tablet 00 :00 by mouth 3 l (three) times a day as needed for dizziness for up to 30 days. meclizine 2021-0 202- No 25mg Q.32294798 Take 1 [facility] ([facility]) 17 -10 [id number] tablet (25 st 25 mg 00:00: 00:00 3D mg total) Hospit a tablet 00 :00 by mouth 3 l (three) times a day as needed for dizziness for up to 30 days. meclizine 2021-0 2021- No 25mg Q.00508370 Take 1 [facility] ([facility]) 17 -10 [id number] tablet (25 st 25 mg 00:00: 00:00 3D mg total) Hospit a tablet 00 :00 by mouth 3 l (three) times a day as needed for dizziness for up to 30 days. meclizine 2021-0 2022- No 25mg Q.76998050 Take 1 [facility] ([facility]) 5-17 06-10 [id number] tablet (25 st 25 mg 00:00: 00:00 3D mg total) Hospit a tablet 00 :00 by mouth 3 l (three) times a day as needed for dizziness for up to 30 days. meclizine 2022-0 2022- No 25mg Q.44574539 Take 1 [facility] ([facility]) 517 -10 [id number] tablet (25 st 25 mg 00:00: 00:00 3D mg total) Hospit a tablet 00 :00 by mouth 3 l (three) times a day as needed for dizziness for up to 30 days. meclizine 2021-0 2- No 25mg Q.54956491 Take 1 [facility] ([facility]) 17 0610 [id number] tablet (25 st 25 mg 00:00: 00:00 [...] to 5 days [place] [id number] 1{tbl} Q6H Take 1-2 [facility] en-codeine 4- [...] to 5 [place]. [place] [id number] 1{tbl} Q6H Take 1-2 [facility] en-codeine 4- [...] 5 days .acute pain. amoxicillin 2021- No [id number] 500mg Q.5D Take 1 [facility] ([facility]OXIL) 07-[address] 500 MG 00:00: 04:59 (500 mg Hospita tablet 00 :00 total) by l mouth 2 (two) times a day for 7 days. amoxicillin 2021- No [id number] 500mg Q.5D Take 1 [facility] ([facility]) 07-[address] 500 MG 00:00: 04:59 (500 mg Hospita tablet 00 :00 total) by l mouth 2 (two) times a day for 7 days. amoxicillin 2021- No [id number] 500mg Q.5D Take 1 [facility] ([facility]) 07-[address] 500 MG 00:00: 04:59 (500 mg [facility]ospita tablet 00 :00 total) by l mouth 2 (two) times a day for 7 days. amoxicillin 2021- No [id number] 500mg Q.5D Take 1 [facility] ([facility]) 07-[address] 500 MG 00:00: 04:59 (500 mg [facility]ospita tablet 00 :00 total) by l mouth 2 (two) times a day for 7 days. amoxicillin 2021- No [id number] 500mg Q.5D Take 1 [facility] ([facility]) 07-[address] 500 MG 00:00: 04:59 (500 mg [facility]ospita tablet 00 :00 total) by l mouth 2 (two) times a day for 7 days. amoxicillin 2021- No [id number] 500mg Q.5D Take 1 [facility] ([facility]) 07-[address] 500 MG 00:00: 04:59 (500 mg [facility]ospita tablet 00 :00 total) by l mouth 2 (two) times a day for 7 days. amoxicillin 2021- No [id number] 500mg Q.5D Take 1 [facility] ([facility]) 07-[address] 500 MG 00:00: 04:59 (500 mg [facility]ospita tablet 00 :00 total) by l mouth 2 (two) times a day for 7 days. amoxicillin 2021- No [id number] 500mg Q.5D Take 1 [facility] ([facility]) 07-[address] 500 MG 00:00: 04:59 (500 mg [facility]ospita tablet 00 :00 total) by l mouth 2 (two) times a day for 7 days. nicotine 2021- No 1{patch Q24H Place 1 [facility] (Nicoderm 4-13 05-14 } patch on st [...] hours for 30 days. amoxicillin 2021- No [id number] 500mg Q.5D Take 1 [facility] ([facility]OXIL) 06-[address] 500 MG 00:00: 04:59 (500 mg Hospita tablet 00 :00 total) by l mouth in the morning and 1 tablet (500 mg total) before bedtime. Do all this for 7 days. amoxicillin 2021- No [id number] 500mg Q.5D Take 1 [facility] ([facility]) 06-[address] 500 MG 00:00: 04:59 (500 mg [facility]osp[facility] tablet 00 :00 total) by l mouth in the morning and 1 tablet (500 mg total) before bedtime. Do all this for 7 days. amoxicillin 2021- No [id number] 500mg Q.5D Take 1 [facility] ([facility]) 06-[address] 500 MG 00:00: 04:59 (500 mg [facility]ospita tablet 00 :00 total) by l mouth in the morning and 1 tablet (500 mg total) before bedtime. Do all this for 7 days. amoxicillin 2021- No [id number] 500mg Q.5D Take 1 [facility] ([facility]) 06-[address] 500 MG 00:00: 04:59 (500 mg [facility]osp[facility] tablet 00 :00 total) by l mouth in the morning and 1 tablet (500 mg total) before bedtime. Do all this for 7 days. amoxicillin 2021- No [id number] 500mg Q.5D Take 1 [facility] ([facility]OXIL) 06-[address] 500 MG 00:00: 04:59 (500 mg [facility]ospita tablet 00 :00 total) by l mouth in the morning and 1 tablet (500 mg total) before bedtime. Do all this for 7 days. amoxicillin 2021- No [id number] 500mg Q.5D Take 1 [facility] ([facility]) 06-[address] 500 MG 00:00: 04:59 (500 mg [facility]ospita tablet 00 :00 total) by l mouth in the morning and 1 tablet (500 mg total) before bedtime. Do all this for 7 days. amoxicillin 2021- No [id number] 500mg Q.5D Take 1 [facility] ([facility]) 06-[address] 500 MG 00:00: 04:59 (500 mg Hospita tablet 00 :00 total) by l mouth in the morning and 1 tablet (500 mg total) before bedtime. Do all this for 7 days. amoxicillin 2021- No [id number] 500mg Q.5D Take 1 [facility] (AMOXIL) 06-18 [...] amLODIPine 2022-0 2022- No [facility] ([facility]) 05-15- st 2.5 mg 00:00: 00:00 [facility]ospita tablet 00 :00 l amLODIPine 2022-0 2022- No [facility] ([facility]) 05-15- st 2.5 mg 00:00: 00:00 [facility]ospita tablet 00 :00 l amLODIPine 2022-0 2022- No [facility] ([facility]) 2- st 2.5 mg 00:00: 00:00 [facility]ospita tablet 00 :00 l amLODIPine 2022-0 2- No [facility] ([facility]) 2- 04-05 st 2.5 mg 00:00: 00:00 [facility]ospita tablet 00 :00 l amLODIPine 2022-0 2022- No [facility] ([facility]) 2- 04-05 st 2.5 mg 00:00: 00:00 [facility]ospita tablet 00 :00 l amLODIPine 2022-0 2022- No [facility] ([facility]) 2- 04-05 st 2.5 mg 00:00: 00:00 Hospita tablet 00 :00 l amLODIPine 2022-0 2022- No [facility] ([facility]) 2- 04-05 st 2.5 mg 00:00: 00:00 Hospita tablet 00 :00 l HYDROcodone 2-0 2021- No [id number] 1{tbl} Q6H Take 1 [facility] -acetaminop 05-[address] [employer]) 00:00: 05:59 [facility] 5-325 mg 00 :00 every 6 l per tablet (six) hours as needed for moderate pain for up to 5 days .acute pain. Max Daily Amount: 4 tablets HYDROcodone 2021-0 2021- [place] [id number] 1{tbl} Q6H Take 1 [facility] -acetaminop -05-[address] [facility] ([facility]) 00:00: 05:59 [facility] 5-325 mg 00 :00 every 6 l per tablet (six) hours as needed for moderate pain for up to 5 days .acute pain. Max Daily Amount: 4 tablets HYDROcodone 2022-0 2021- No [id number] 1{tbl} Q6H Take 1 [facility] -acetaminop 1-04 05- tablet by [facility] ([facility]) 00:00: 05:59 [facility] 5-325 mg 00 :00 every 6 l per tablet (six) hours as needed for moderate pain for up to 5 days .acute pain. Max Daily Amount: 4 tablets HYDROcodone 2022-0 2021- No [id number] 1{tbl} Q6H Take 1 [facility] -acetaminop -[address] [facility] ([facility]) 00:00: 05:59 [facility] 5-325 mg 00 :00 every 6 l per tablet (six) hours as needed for moderate pain for up to 5 days .acute pain. Max Daily Amount: 4 tablets HYDROcodone 1{tbl} Q6H Take 1 [facility] -acetaminop 05-[address] [facility] ([facility]) 00:00: 05:59 [facility] 5-325 mg 00 :00 every 6 l per tablet (six) hours as needed for moderate pain for up to 5 days .acute pain. Max Daily Amount: 4 tablets HYDROcodone 1{tbl} Q6H Take 1 [facility] -acetaminop 05-[address] [facility] ([facility]) 00:00: 05:59 [facility] 5-325 mg [...] to 15 days .[place] [id number] 1{tbl} Q6H Take 1-2 [facility] en-codeine 05-[address] (TYLENOL 00:00: 00:00 mouth [facility]ospita WITH 00 :00 every 6 l CODEINE #3) (six) 300-30 mg hours as per tablet needed for moderate pain for up to 15 days .acute pain. acetamin[place] 2021- [place] [id number] 1{tbl} Q6H Take 1-2 [facility] en-codeine 05-04 [...] No 2 PO [facility] (DELTASONE) 04-17 01-[address] 20 mg 00:00: 05:59 [...] for up to 30 doses. acetaminoph No 1{tbl} Q6H Take 1 [facility] [...] to 5 [place] [id number] 50mg Q6H Take 1 [facility] (ULTRAM) 50 04-12 tablet (50 s t mg tablet 00:00: 00:00 mg total) Ho [facility]ita 00 :00 by mouth l every 6 (six) hours as needed for moderate pain for up to 5 days .acute pain. traMADoL 2021- No [id number] 50mg Q6H Take 1 [facility] (ULTRAM) 50 04-12 tablet (50 s t mg tablet 00:00: 00:00 mg total) [facility] 00 :00 by mouth l every 6 (six) hours as needed for moderate pain for up to 5 days .acute pain. traMADoL 2021- No [id number] 50mg Q6H Take 1 [facility] (ULTRAM) 50 04-12 tablet (50 s t mg tablet 00:00: 00:00 mg total) [facility] 00 :00 by mouth l every 6 (six) hours as needed for moderate pain for up to 5 days .acute pain. traMADoL 2021- No [id number] 50mg Q6H Take 1 [facility] (ULTRAM) [...] 1 [facility] (LIORESAL) 9-24 tablet by [facility] 10 mg 00:00: mouth 2 tablet 00 times daily as needed (muscle spasms) STOP cyclobenza kasia (FLEXERIL) 10 mg tablet. baclofen 2019- Yes Neck pain 10mg Take 1 [facility] (LIORESAL) 9-24 tablet by [facility] 10 mg 00:00: mouth 2 tablet 00 times daily as needed (muscle spasms) STOP cyclobenza kasia (FLEXERIL) 10 mg tablet. baclofen 2019-0 Yes Neck pain 10mg Take 1 [facility] (LIORESAL) 9-24 tablet by [facility] 10 mg 00:00: mouth 2 tablet 00 times daily as needed (muscle spasms) STOP cyclobenza kasia (FLEXERIL) 10 mg tablet. baclofen 2019-0 Yes Neck pain 10mg Take 1 [facility] (LIORESAL) 9-24 tablet by [facility] 10 mg 00:00: mouth 2 tablet 00 times daily as needed (muscle spasms) STOP cyclobenza kasia (FLEXERIL) 10 mg tablet. baclofen 2020-0 Yes Neck pain 10mg Take 1 [facility] (LIORESAL) 9-24 tablet by [facility] 10 mg 00:00: mouth 2 tablet 00 times daily as needed (muscle spasms) STOP cyclobenza kasia (FLEXERIL) 10 mg tablet. baclofen 2020-0 Yes Neck pain 10mg Take 1 [facility] (LIORESAL) 9-24 tablet by [facility] 10 mg 00:00: mouth 2 tablet 00 times daily as needed (muscle spasms) STOP cyclobenza kasia (FLEXERIL) 10 mg tablet. baclofen 2020-0 Yes Neck pain 10mg Take 1 [facility] (LIORESAL) 9-24 tablet by [facility] 10 mg 00:00: mouth 2 tablet 00 times daily as needed (muscle spasms) STOP cyclobenza kasia (FLEXERIL) 10 mg tablet. baclofen 2020-0 Yes Neck pain 10mg Take 1 [facility] (LIORESAL) 9-24 tablet by [facility] 10 mg 00:00: mouth 2 tablet 00 times daily as needed (muscle spasms) STOP cyclobenza kasia (FLEXERIL) 10 mg tablet. baclofen 2020-0 Yes Neck pain 10mg Take 1 [facility] (LIORESAL) 9-24 tablet by [facility] 10 mg 00:00: mouth 2 tablet 00 times daily as needed (muscle spasms) STOP cyclobenza kasia (FLEXERIL) 10 mg tablet. baclofen 2020-0 Yes Neck pain 10mg Take 1 [facility] (LIORESAL) 9-24 [facility] [facility] 10 mg 00:00: mouth 2 tablet 00 times daily as needed (muscle spasms) STOP cyclobenza kasia (FLEXERIL) 10 mg tablet. baclofen 2020-0 Yes Neck pain 10mg Take 1 Maria rris (LIORESAL) 9-24 tablet by [facility] 10 mg 00:00: mouth 2 tablet 00 times daily as needed (muscle spasms) STOP cyclobenza kasia (FLEXERIL) 10 mg tablet. baclofen 2020-0 Yes Neck pain 10mg Take 1 Maria rris (LIORESAL) 9-24 tablet by [facility] 10 mg 00:00: mouth 2 tablet 00 times daily as needed (muscle spasms) STOP cyclobenza kasia (FLEXERIL) 10 mg tablet. baclofen 2020-0 Yes Neck pain 10mg Take 1 Maria rris (LIORESAL) 9-24 tablet by [facility] 10 mg 00:00: mouth 2 tablet 00 times daily as needed (muscle spasms) STOP cyclobenza kasia (FLEXERIL) 10 mg tablet. baclofen 2020-0 Yes Neck pain 10mg Take 1 Maria rris (LIORESAL) 9-24 tablet by [facility] 10 mg 00:00: mouth 2 tablet 00 times daily as needed (muscle spasms) STOP cyclobenza kasia (FLEXERIL) 10 mg tablet. baclofen 2020-0 Yes Neck pain 10mg Take 1 Maria rris (LIORESAL) 9-24 tablet by [facility] 10 mg 00:00: mouth 2 tablet 00 times daily as needed (muscle spasms) STOP cyclobenza kasia (FLEXERIL) 10 mg tablet. baclofen 2020-0 Yes Neck pain 10mg Take 1 Maria rris (LIORESAL) 9-24 tablet by [facility] 10 mg 00:00: mouth 2 tablet 00 times daily as needed (muscle spasms) STOP cyclobenza kasia (FLEXERIL) 10 mg tablet. baclofen 2020-0 Yes Neck pain 10mg Take 1 Maria rris (LIORESAL) 9-24 tablet by [facility] 10 mg 00:00: mouth 2 tablet 00 times daily as needed (muscle spasms) STOP cyclobenza kasia (FLEXERIL) 10 mg tablet. baclofen 2020-0 Yes Neck pain 10mg Take 1 Maria rris (LIORESAL) 9-24 tablet by [facility] 10 mg 00:00: mouth 2 tablet 00 times daily as needed (muscle spasms) STOP cyclobenza kasia (FLEXERIL) 10 mg tablet. baclofen 2020-0 Yes Neck pain 10mg Take 1 Maria rris (LIORESAL) 9-24 tablet by [facility] 10 mg 00:00: mouth 2 tablet 00 times daily as needed (muscle spasms) STOP cyclobenza kasia (FLEXERIL) 10 mg tablet. amitriptyli 2020-0 Yes Neck pain 25mg Take 1 Mahmood ne (ELAVIL) 9-03 tablet by [facility] 25 mg 00:00: mouth at tablet 00 [...] varenicline 2020-0 Yes Encounter Start Mahmood (CHANTIX) - for smoking taking H ealth 0.5 mg [...] rris azole-trime 9-24 tablet by [facility] thoprim 08:09: mouth 2 (BACTRIM 11 times DS) 800-160 daily. mg per tablet MULTIVITAMI 2019-0 Yes Take by Tom ris N (DAILY 9-24 mouth. Health VITAMIN OR) 08:09: 11 sulfamethox 2019-0 Yes 1{tbl} Q.5D Take 1 Maria rris azole-trime 9-24 tablet by [facility] thoprim 08:09: mouth 2 (BACTRIM 11 times DS) 800-160 daily. mg per tablet MULTIVITAMI 2019-0 Yes Take by Tom ris N (DAILY 9-24 mouth. Health VITAMIN OR) 08:09: 11 sulfamethox 2019-0 Yes 1{tbl} Q.5D Take 1 Maria rris azole-trime 9-24 tablet by [facility] thoprim 08:09: mouth 2 (BACTRIM 11 times DS) 800-160 daily. mg per tablet MULTIVITAMI 2019-0 Yes Take by Tom ris N (DAILY 9-24 mouth. Health VITAMIN OR) 08:09: 11 sulfamethox 2019-0 Yes 1{tbl} Q.5D Take 1 Maria rris azole-trime 9-24 tablet by [facility] thoprim 08:09: mouth 2 (BACTRIM 11 times DS) 800-160 daily. mg per tablet MULTIVITAMI 2019-0 Yes Take by Tom ris N (DAILY 9-24 mouth. Health VITAMIN OR) 08:09: 11 sulfamethox 2019-0 Yes 1{tbl} Q.5D Take 1 Maria rris azole-trime 9-24 tablet by [facility] thoprim 08:09: mouth 2 (BACTRIM 11 times DS) 800-160 daily. mg per tablet MULTIVITAMI 2019-0 Yes Take by Tom ris N (DAILY 9-24 mouth. Health VITAMIN OR) 08:09: 11 sulfamethox 2019-0 Yes 1{tbl} Q.5D Take 1 Maria rris azole-trime 9-24 tablet by [facility] thoprim 08:09: mouth 2 (BACTRIM 11 times DS) 800-160 daily. mg per tablet MULTIVITAMI 2019-0 Yes Take by Tom ris N (DAILY 9-24 mouth. Health VITAMIN OR) 08:09: 11 sulfamethox 2019-0 Yes 1{tbl} Q.5D Take 1 Maria rris azole-trime 9-24 tablet by [facility] 08:09: mouth 2 (BACTRIM 11 times DS) 800-160 daily. mg per tablet MULTIVITAMI 2019-0 Yes Take by Tom ris N (DAILY 9-24 mouth. Health VITAMIN OR) 08:09: 11 sulfamethox 2019-0 Yes 1{tbl} Q.5D Take 1 Maria rris azole-trime 9-24 tablet by [facility] 08:09: mouth 2 (BACTRIM 11 [...] 2 times mg/gram weekly. vaginal cream conjugated 2015-0 Yes Vaginal .5g Insert 0.5 Mahmood estrogens [...] 2 times mg/gram weekly. vaginal cream silver 2014- Yes Desquamated Apply Tom ris [...] Immunizations Ordered Filled Immunization Date Status Comments [facility] e Immunization Name Name RUBEN ALEJANDRA 2021-02-[address] [facility] FLUCELVAX [...] QUAD PF 2021-02-[address] 00:00:00 [facility] PFIZER COVID-19 2020-08-05 Completed [facility] VACCINATION 00:00:00 [facility] PFIZER COVID-19 2020-08-05 Completed [facility] VACCINATION 00:00:00 [facility] PFIZER COVID-19 2020-08-05 Completed [facility] VACCINATION 00:00:00 [facility] PFIZER COVID-19 2020-08-05 Completed [facility] VACCINATION 00:00:00 [facility] PFIZER COVID-19 2020-08-05 Completed [facility] VACCINATION 00:00:00 [facility] PFIZER COVID-19 2020-08-05 Completed [facility] VACCINATION 00:00:00 [facility] PFIZER COVID-19 2020-08-05 Completed [facility] VACCINATION 00:00:00 [facility] PFIZER COVID-19 2020-08-05 Completed [facility] VACCINATION 00:00:00 [facility] PFIZER COVID-19 2020-08-05 Completed [facility] VACCINATION 00:00:00 [facility] PFIZER COVID-19 2020-08-05 Completed [facility] VACCINATION 00:00:00 [facility] KELLY COVID-19 2020-08-05 Completed [facility] VACCINATION 00:00:00 [facility] KELLY COVID-Nadja 2020-08-05 Completed [facility] VACCINATION 00:00:00 [facility] KELLY RIOSID-Nadja 2020-08-05 Completed [facility] VACCINATION 00:00:00 [facility] KELLY GONZALES-Nadja 2020-08-05 Completed [facility] VACCINATION 00:00:00 [facility] KELLY RIOSID-Nadja 2020-07-08 Completed [facility] VACCINATION 00:00:00 [facility] KELLY RIOSID-Nadja 2020-07-08 Completed [facility] VACCINATION 00:00:00 [facility] KELLY GONZALES-Nadja 2020-07-08 Completed [facility] VACCINATION 00:00:00 [facility] KELLY RIOSID-Nadja 2020-07-08 Completed [facility] VACCINATION 00:00:00 [facility] KELLY GONZALES-Nadja 2020-07-08 Completed [facility] VACCINATION 00:00:00 [facility] KELLY GONZALES-Nadja 2020-07-08 Completed [facility] VACCINATION 00:00:00 [facility] KELLY RIOSID-Nadja 2020-07-08 Completed [facility] VACCINATION 00:00:00 [facility] KELLY GONZALES-Nadja 2020-07-08 Completed [facility] VACCINATION 00:00:00 [facility] KELLY RIOSID-Nadja 2020-07-08 Completed [facility] VACCINATION 00:00:00 [facility] KELLY RIOSID-Nadja 2020-07-08 Completed [facility] VACCINATION 00:00:00 [facility] KELLY RIOSID-Nadja 2020-07-08 Completed [facility] VACCINATION 00:00:00 [facility] KELLY COVID-Nadja 2020-07-08 Completed [facility] VACCINATION 00:00:00 [facility] KELLY COVID-Nadja 2020-07-08 Completed [facility] VACCINATION 00:00:00 [facility] KELLY COVID-Ndaja 2020-07-08 Completed [facility] VACCINATION 00:00:00 [facility] Influenza, 2020-03-12 Completed [facility] Vaccine<FLUCELVAX>( 00:00:00 Multi-Dose) Tdap (Tetanus 2020-03-12 Completed [facility] Toxoid, Reduced 00:00:00 Diphtheria Toxoid And Acellular Pertussis, Absorbed) Influenza, 2020-03-12 Completed [facility] Vaccine<FLUCELVAX>( 00:00:00 Multi-Dose) Tdap (Tetanus 2020-03-12 Completed [facility] Toxoid, Reduced 00:00:00 Diphtheria Toxoid And Acellular Pertussis, Absorbed) Influenza, 2020-03-12 Completed [facility] Vaccine<FLUCELVAX>( 00:00:00 Multi-Dose) Tdap (Tetanus 2020-03-12 Completed [facility] Toxoid, Reduced 00:00:00 Diphtheria Toxoid And Acellular Pertussis, Absorbed) Influenza, 2020-03-12 Completed [facility] Vaccine<FLUCELVAX>( 00:00:00 Multi-Dose) Tdap (Tetanus 2020-03-12 Completed [facility] Toxoid, Reduced 00:00:00 Diphtheria Toxoid And Acellular Pertussis, Absorbed) Influenza, 2020-03-12 Completed [facility] Vaccine<FLUCELVAX>( 00:00:00 Multi-Dose) Tdap (Tetanus 2020-03-12 Completed [facility] Toxoid, Reduced 00:00:00 Diphtheria Toxoid And Acellular Pertussis, Absorbed) Influenza, 2020-03-12 Completed [facility] Vaccine<FLUCELVAX>( 00:00:00 Multi-Dose) Tdap (Tetanus 2020-03-12 Completed [facility] Toxoid, Reduced 00:00:00 Diphtheria Toxoid And Acellular Pertussis, Absorbed) Influenza, 2020-03-12 Completed [facility] Vaccine<FLUCELVAX>( 00:00:00 Multi-Dose) Tdap (Tetanus 2020-03-12 Completed [facility] Toxoid, Reduced 00:00:00 Diphtheria Toxoid And Acellular Pertussis, Absorbed) Influenza, 2020-03-12 Completed [facility] Vaccine<FLUCELVAX>( 00:00:00 Multi-Dose) Tdap (Tetanus 2020-03-12 Completed [facility] Toxoid, Reduced 00:00:00 Diphtheria Toxoid And Acellular Pertussis, Absorbed) Influenza, 2020-03-12 Completed [facility] Vaccine<FLUCELVAX>( 00:00:00 Multi-Dose) Tdap (Tetanus 2020-03-12 Completed [facility] Toxoid, Reduced 00:00:00 Diphtheria Toxoid And Acellular Pertussis, Absorbed) Influenza, 2020-03-12 Completed [facility] Vaccine<FLUCELVAX>( 00:00:00 Multi-Dose) Tdap (Tetanus 2020-03-12 Completed [facility] Toxoid, Reduced 00:00:00 Diphtheria Toxoid And Acellular Pertussis, Absorbed) Influenza, 2020-03-12 Completed [facility] Vaccine<FLUCELVAX>( 00:00:00 Multi-Dose) Tdap (Tetanus 2020-03-12 Completed [facility] Toxoid, Reduced 00:00:00 Diphtheria Toxoid And Acellular Pertussis, Absorbed) Influenza, 2020-03-12 Completed [facility] Vaccine<FLUCELVAX>( 00:00:00 Multi-Dose) Tdap (Tetanus 2020-03-12 Completed [facility] Toxoid, Reduced 00:00:00 Diphtheria Toxoid And Acellular Pertussis, Absorbed) Influenza, 2020-03-12 Completed [facility] Vaccine<FLUCELVAX>( 00:00:00 Multi-Dose) Tdap (Tetanus 2020-03-12 Completed [facility] Toxoid, Reduced 00:00:00 Diphtheria Toxoid And Acellular Pertussis, Absorbed) Influenza, 2020-03-12 Completed [facility] Vaccine<FLUCELVAX>( 00:00:00 Multi-Dose) Tdap (Tetanus 2020-03-12 Completed [facility] Toxoid, Reduced 00:00:00 Diphtheria Toxoid And Acellular Pertussis, Absorbed) FLUCELVAX QUAD PF Unknown [facility] Com[facility] Unknown Completed [facility] VACCINATION [facility] FLUCELVAX QUAD PF Unknown Com[facility] Com[facility] FLUCELVAX QUAD PF Unknown Com[facility] Com[facility] FLUCELVAX QUAD PF Unknown Com[facility] Com[facility] Com[facility] VACCINATION [facility] Influenza, Unknown Completed [facility] Vaccine<FLUCELVAX>( Multi-Dose) Tdap (Tetanus Unknown Completed [facility] Toxoid, Reduced Diphtheria Toxoid And Acellular Pertussis, Absorbed) FLUCELVAX QUAD PF Unknown Com[facility] Com[facility] Completed [facility] VACCINATION [facility] Influenza, Unknown Completed [facility] Vaccine<FLUCELVAX>( Multi-Dose) Tdap (Tetanus Unknown Completed [facility] Toxoid, Reduced Diphtheria Toxoid And Acellular Pertussis, Absorbed) Influenza, Unknown Completed [facility] Vaccine<FLUCELVAX>( Multi-Dose) Tdap (Tetanus Unknown Completed [facility] Toxoid, Reduced Diphtheria Toxoid And Acellular Pertussis, Absorbed) Influenza, Unknown Completed [facility] Vaccine<FLUCELVAX>( Multi-Dose) Tdap (Tetanus Unknown Completed [facility] Toxoid, Reduced Diphtheria Toxoid And Acellular Pertussis, Absorbed) Influenza, Unknown Completed [facility] Vaccine<FLUCELVAX>( Multi-Dose) Tdap (Tetanus Unknown Completed [facility] Toxoid, Reduced Diphtheria Toxoid And Acellular Pertussis, Absorbed) Vital Signs Vital Name Observation Time Observation Value Comments Source Systolic blood 2022-02-20 01:13:29 129 mm[Hg] [facility] pressure Diastolic blood 2022-02-20 01:13:29 67 mm[Hg] [facility] pressure Heart rate 2022-02-20 01:13:29 60 /min [facility] Respiratory rate 2022-02-20 01:13:29 18 /min [facility] Oxygen saturation in 2022-02-20 01:13:29 96 /min [facility] Arterial blood by Pulse oximetry Body height 2022-02-19 20:30:00 162.6 cm [facility] Body weight 2022-02-19 20:30:00 79.379 kg [facility] BMI 2022-02-19 20:30:00 30.04 kg/m2 [facility] Body temperature 2022-02-19 20:29:09 36.61 [facility] pulse rate 2021-12-16 13:21:49 87 /min [facility] blood pressure, 2021-12-16 13:21:49 67 mm[Hg] [facility] blood pressure, 2021-12-16 13:21:49 132 mm[Hg] [facility] systolic Health pulse rate 2020-11-25 14:31:56 70 /min [facility] blood pressure, 2020-11-25 14:31:56 74 mm[Hg] [facility] blood pressure, 2020-11-25 14:31:56 113 mm[Hg] [facility] pulse rate 2020-11-25 13:39:38 70 /min [facility], 2020-11-25 13:39:38 74 mm[Hg] [facility] diastolic Health blood pressure, 2020-11-25 13:39:38 113 mm[Hg] [facility] systolic Health Procedures Procedure Date / Time Performing Source Performed Clinician CT CHEST WO CONTRAST ABDOMEN WO 2022-02-20 Cristóbal Ovalle CONTRAST PELVIS WO CONTRAST 01:47:08 [facility] ED PRELIMINARY INTERPRETATION 2022-02-20 Cristóbal Ovalle 01:34:30 [facility] CBC WITH PLATELET AND DIFFERENTIAL 2022-02-19 Pa Manningist 21:40:00 [facility] COMPREHENSIVE METABOLIC PANEL 2022-02-19 Alee Manning [facility] 21:40:00 [facility] HCG QUALITATIVE, SERUM SCREEN 2022-02-19 [facility] 21:40:00 Hospital ESTIMATED GFR 2022-02-19 Alee Manning 21:40:00 [facility] ECG 12-LEAD 2022-02-19 Alee Manning 20:46:22 Hospital URINE CULTURE 2022-02-19 Alee Manning 20:34:00 [facility] URINALYSIS SCREEN AND MICROSCOPY, 2022-02-19 Eulalio Manning WITH REFLEX TO CULTURE 20:34:00 [facility] HEPATITIS B SURFACE ANTIGEN 2022-02-05 Eddie Farris Meth odist 15:30:00 Hospital HEPATITIS C ANTIBODY 2022-02-05 Eddie Farris 15:30:00 [facility] HIV 1/2 ANTIGEN/ANTIBODY, FOURTH 2022-02-05 Eddie Farris GENERATION, WITH REFLEXES 15:30:00 Hospit al HSV TYPE 1/2 COMBINED AB, IGM 2022-02-05 Eddie Farris [facility] 15:30:00 Hospital RPR WITH REFLEX TO TITER 2022-02-[address] 15:30:00 Hospital HEPATITIS C VIRUS (HCV), 2022-02-05 Eddie Farris QUANTITATIVE PCR 15:30:00 Hospital HIV 1/2 ANTIGEN/ANTIBODY, FOURTH 2022-02-05 Eddie Farrisist GENERATION, WITH REFLEXES 15:30:00 Hospit al ZZHSV 1 AND 2 SPECIFIC AB IGG 2022-02-05 Eddie Farris [facility] 15:30:00 [facility] SURGICAL PATHOLOGY REQUEST 2021-12-26 Esthela Small [facility] 18:06:00 Hospital COLONOSCOPY 2021-12-26 Esthela Small [facility] 15:44:00 [facility] ESOPHAGOGASTRODUODENOSCOPY (EGD) 2021-12-26 Esthela Small [facility] 15:44:00 [facility] COVID-19 QUALITATIVE RT-PCR 2021-12-24 Esthela Small ethodist 12:41:00 [facility] THINPREP TIS AND HPV MRNA E6/E7 2021-12-18 Eddie Farris 18:34:00 [facility] ECG 12-LEAD 2021-11-28 Keith Carroll 15:26:34 [facility] TROPONIN T 2021-11-07 Zeyad Cohen 20:01:00 [facility] COVID-19 QUALITATIVE RT-PCR 2021-11-07 Zeyad Cohen odist 19:09:00 [facility] COVID-19 OMICRON VARIANT 2021-11-[address] QUALITATIVE RT-PCR 19:09:00 [facility] XR CHEST 2 VW 2021-11-07 Zeyad Cohen 18:51:38 [facility] ECG ED PRELIMINARY INTERPRETATION 2021-11-07 Karo Cohen 18:50:27 [facility] COMPREHENSIVE METABOLIC PANEL 2021-11-07 Zeyad Cohen [facility] 18:03:00 [facility] TROPONIN T 2021-11-07 Zeyad Cohen 18:03:00 [facility] CBC WITH PLATELET AND DIFFERENTIAL 2021-11-07 Ed Cohen 18:03:00 [facility] HCG QUALITATIVE, SERUM SCREEN 2021-11-07 Zeyad Cohen [facility] 18:03:00 [facility] ESTIMATED GFR 2021-11-07 Zeyad Cohen 18:03:00 [facility] ECG 12-LEAD 2021-11-07 Liborio Herrera [facility] 17:57:16 Hospital FL UGI W OR WO KUB 2021-11-03 Esthela Smallist 15:16:30 Hospital HEPATITIS C VIRUS (HCV), 2021-11-03 Esthela Small Meth odist QUANTITATIVE PCR 13:52:00 Hospital HEPATIC FUNCTION PANEL 2021-11-03 Esthela Small Method ist 13:52:00 Hospital XR CHEST 2 VW 2021-10-15 José Rider [facility] 02:52:42 Hospital COMPREHENSIVE METABOLIC PANEL 2021-10-15 Mario Maher thodist 01:15:00 [facility] TROPONIN T 2021-10-15 Mario Maher 01:15:00 [facility] B NATRIURETIC PEPTIDE 2021-10-15 Mario Maher 01:15:00 [facility] CBC WITH PLATELET AND DIFFERENTIAL 2021-10-15 Marques Maher 01:15:00 [facility] PROTHROMBIN TIME WITH INR 2021-10-15 Mario Maher ist 01:15:00 [facility] PARTIAL THROMBOPLASTIN TIME (PTT) 2021-10-15 Mario Maher 01:15:00 [facility] ESTIMATED GFR 2021-10-15 Mario Maher 01:15:00 [facility] ECG 12-LEAD 2021-10-15 Mario Maher 00:33:[address] [facility] [address] ANGIOGRAM PE CHEST 2021-10-12 Trung Courtney 17:55:52 [facility] CBC WITH PLATELET AND DIFFERENTIAL [...] Hospital URINE CULTURE 2021-10-12 Rajinder Ordoñez 15:17:00 [facility] URINALYSIS SCREEN AND MICROSCOPY, 2021-10-12 Arslan Ordoñez WITH REFLEX TO CULTURE 15:17:00 [facility] HCG QUALITATIVE, URINE SCREEN 2021-10-12 Rajinder Ordoñez 15:17:00 [facility] ECG 12-LEAD 2021-10-12 Rajinder Ordoñez 14:48:50 [facility] MT AN ELECTIVE SUPRAGLOTTIC AIRWAY 2021-09-30 Ruddy Marie 12:10:00 Hospital DECOMPRESSION, ULNAR NERVE 2021-09-30 Rebecca Brownlee 12:06:00 [facility] COVID-19 QUALITATIVE RT-PCR 2021-09-26 Dulce Maria Pierre 14:23:00 [facility] PROTHROMBIN TIME WITH INR 2021-09-26 Antonio Pierret 14:23:00 [facility] PARTIAL THROMBOPLASTIN TIME (PTT) 2021-09-26 Keith Pierre 14:23:00 [facility] COMPREHENSIVE METABOLIC PANEL 2021-09-26 Me Gabby thodist 14:23:00 [facility] ESTIMATED GFR 2021-09-26 Rebecca Brownlee 14:23:00 [facility] HEMOGLOBIN A1C 2021-09-26 Rebecca Brownlee 14:23:00 [facility] CBC WITH PLATELET AND DIFFERENTIAL 2021-09-19 Lexie Esparza 07:10:00 Hospital THYROID STIMULATING HORMONE 2021-09-19 Peggy Esparza 07:10:00 Hospital CBC WITH PLATELET AND DIFFERENTIAL 2021-09-19 Lexie Esparza 07:10:00 Hospital XR ELBOW 3+ VW LEFT 2021-09-10 Rebecca Brownlee 15:28:27 [facility] CT ANGIOGRAM NECK W WO CONTRAST 2021-08-27 Brenda Retana 00:01:[address] [facility] [address] ANGIOGRAM HEAD W WO CONTRAST 2021-08-27 Brenda Retana 00:00:[address] [facility] [address] HEAD WO CONTRAST 2021-08-26 Brenda Retana 23:42:[address] [facility] ECG ED PRELIMINARY INTERPRETATION 2021-08-26 Brenda Retana 23:22:[address] [facility] CBC WITH PLATELET AND DIFFERENTIAL 2021-08-26 Willie Retana 21:57:[address] [facility] COMPREHENSIVE METABOLIC PANEL 2021-08-26 Brenda Retana thodist 21:57:[address] [facility] TROPONIN T 2021-08-26 Brenda Retana 21:57:[address] [facility] B NATRIURETIC PEPTIDE 2021-08-26 Peter Retanayssa [facility] 21:57:[address] [facility] HCG QUALITATIVE, SERUM SCREEN 2021-08-26 Brenda Retana thodist 21:57:[address] [facility] ESTIMATED GFR 2021-08-26 Brenda Retana 21:57:[address] [facility] ECG 12-LEAD 2021-08-26 Brenda Retana 21:42:[address] [facility] URINE CULTURE 2021-08-06 Myles Martin 22:27:00 [facility] URINALYSIS SCREEN AND MICROSCOPY, 2021-08-06 Myles Martin Si WITH REFLEX TO CULTURE 22:27:00 [facility] XR CHEST 2 VW 2021-08-06 Myles Martin 20:36:00 [facility] INFLUENZA ANTIGEN 2021-08-06 Susie Melton 20:10:00 [facility] RESPIRATORY PATHOGEN PANEL WITH 2021-08-06 Susie Melton COVID-19 RT-PCR 20:10:00 [facility] ECG ED PRELIMINARY INTERPRETATION 2021-08-06 Mlyes Martin Si 20:08:02 [facility] COMPREHENSIVE METABOLIC PANEL 2021-08-06 Susie Melton thodist 20:05:00 [facility] CBC WITH PLATELET AND DIFFERENTIAL 2021-08-06 Montserrat Melton 20:05:00 [facility] TROPONIN T 2021-08-06 Susie Melton 20:05:00 [facility] LIPASE LEVEL 2021-08-06 Susie Melton 20:05:00 [facility] ESTIMATED GFR 2021-08-06 Susie Melton 20:05:00 [facility] ECG 12-LEAD 2021-08-06 Susie Melton 19:55:29 [facility] TROPONIN T 2021-08-01 Brenda Retana 03:32:[address] [facility] ECG ED PRELIMINARY INTERPRETATION 2021-08-01 Nelson Villagran Aram william [facility] 02:37:45 Hospital CBC WITH PLATELET AND DIFFERENTIAL 2021-08-01 Willie Retana [facility] 00:35:[address] [facility] COMPREHENSIVE METABOLIC PANEL 2021-08-01 Brenda Retana thodist 00:35:[address] [facility] TROPONIN T 2021-08-01 Brenda Retana 00:35:[address] [facility] B NATRIURETIC PEPTIDE 2021-08-01 Brenda Retana 00:35:[address] [facility] ESTIMATED GFR 2021-08-01 Brenda Retana 00:35:[address] [facility] ECG 12-LEAD 2021-08-01 Brenda Retana 00:23:[address] [facility] TROPONIN T 2021-07-30 Jaida Sales 21:35:00 [facility] ECG ED PRELIMINARY INTERPRETATION 2021-07-30 Myles Martin Si [facility] 19:53:48 Hospital XR CHEST 2 VW 2021-07-30 Myles Martin [facility] 19:37:56 [facility] COMPREHENSIVE METABOLIC PANEL 2021-07-30 Jaida Sales 18:40:00 Hospital CBC WITH PLATELET AND DIFFERENTIAL 2021-07-30 Jaida Sales 18:40:00 Hospital TROPONIN T 2021-07-30 Jaida Sales 18:40:00 Hospital B NATRIURETIC PEPTIDE 2021-07-[address] 18:40:00 Hospital ESTIMATED GFR 2021-07-30 Jaida Sales 18:40:00 Hospital ECG 12-LEAD 2021-07-30 Jaida Sales 18:33:57 Hospital MAMMO BREAST SCREEN TOMOSYNTHESIS 2021-07-28 Shell Vargas [facility] BILATERAL 14:20:00 [facility] ECG ED PRELIMINARY INTERPRETATION 2021-07-01 Nelson Villagran nataliia [facility] 00:04:28 Hospital TROPONIN T 2021-06-30 Mario Maher 23:09:00 [facility] RESPIRATORY PATHOGEN PANEL WITH 2021-06-30 Mario Maher COVID-19 RT-PCR 21:09:00 [facility] XR CHEST 2 VW 2021-06-30 Mario Maher 20:40:51 [facility] COMPREHENSIVE METABOLIC PANEL 2021-06-30 Mario Maher [facility] 20:06:00 [facility] TROPONIN T 2021-06-30 Mario Maher 20:06:00 [facility] B NATRIURETIC PEPTIDE 2021-06-30 Mario Maher 20:06:00 [facility] CBC WITH PLATELET AND DIFFERENTIAL 2021-06-30 Marques Maher 20:06:00 [facility] ESTIMATED GFR 2021-06-30 Mario Maher 20:06:00 [facility] ECG 12-LEAD 2021-06-30 Mario Maher 19:54:19 [facility] POC URINALYSIS DIPSTICK 2021-06-16 Eddie Farris t 18:20:00 [facility] THINPREP TIS PAP AND HPV MRNA 2021-06-16 Eddie Farris [facility] E6/E7 REFLEX HPV 16,18/45 18:17:00 Hospit al URINALYSIS, COMPLETE, WITH REFLEX 2021-06-16 Eddie Farrisist TO CULTURE 17:55:00 [facility] XR SHOULDER 2+ VW RIGHT 2021-06-02 Roger Ling t 17:52:26 [facility] MRI LUMBAR SPINE WO CONTRAST [...] 23:31:00 Hospital COMPREHENSIVE METABOLIC PANEL 2021-04-12 Shine Liu [facility] 22:56:00 Hospital LIPASE LEVEL 2021-04-12 Shine Lui 22:56:00 Hospital HC COMPLETE BLD COUNT W/AUTO DIFF 2021-04-12 Shine Lui 22:56:00 Hospital TROPONIN T 2021-04-12 Shine Lui 22:56:00 Hospital ESTIMATED GFR 2021-04-12 Shine Lui 22:56:[address] RENAL STONE PROTOCOL 2021-04-12 Shine Lui t 22:36:21 [facility] ECG 12-LEAD 2021-04-12 Shine Lui 21:52:29 Hospital URINE CULTURE 2021-04-12 Shine Lui 21:52:00 Hospital URINALYSIS SCREEN AND MICROSCOPY, 2021-04-12 Shine Lui WITH REFLEX TO CULTURE 21:52:00 Hospital ECG ED PRELIMINARY INTERPRETATION 2021-04-12 Shine Lui 21:47:56 [facility] Plan of Care Planned Activity Planned Date Details Comments Source Future Scheduled 2024-09-11 [facility]:00 malignant neoplasm of cervix (procedure) [code = 247862239] Future Scheduled 2024-09-11 [facility] 00:00:00 malignant neoplasm of cervix (procedure) [code = 283937752] Future Scheduled 2024-09-11 [facility] 00:00:00 malignant neoplasm of cervix (procedure) [code = 208536422] Future Scheduled 2024-09-11 [facility] 00:00:00 malignant neoplasm of cervix (procedure) [code = 514261675] Future Scheduled 2024-09-11 [facility] 00:00:00 malignant neoplasm of cervix (procedure) [code = 065638837] Future Scheduled 2024-09-11 [facility] 00:00:00 malignant neoplasm of cervix (procedure) [code = 493438450] Future Scheduled 2024-09-11 [facility] 00:00:00 malignant neoplasm of cervix (procedure) [code = 327642465] Future Scheduled 2024-09-11 [facility] 00:00:00 malignant neoplasm of cervix (procedure) [code = 809584281] Future Scheduled 2024-09-11 [facility] 00:00:00 malignant neoplasm of cervix (procedure) [code = 190556943] Future Scheduled 2024-09-11 [facility] 00:00:00 malignant neoplasm of cervix (procedure) [code = 089121487] Future Scheduled 2024-09-11 [facility] 00:00:00 malignant neoplasm of cervix (procedure) [code = 744814063] Future Scheduled 2024-09-11 [facility] 00:00:00 malignant neoplasm of cervix (procedure) [code = 673697618] Future Scheduled 2024-09-11 [facility] 00:00:00 malignant neoplasm of cervix (procedure) [code = 556538542] Future Scheduled 2024-09-11 [facility] 00:00:00 malignant neoplasm of cervix (procedure) [code = 879244629] Future Scheduled 2024-09-11 [facility] 00:00:00 malignant neoplasm of cervix (procedure) [code = 032525745] Future Scheduled 2024-09-11 [facility] 00:00:00 malignant neoplasm of cervix (procedure) [code = 581359250] Future Scheduled 2024-09-11 [facility] 00:00:00 malignant neoplasm of cervix (procedure) [code = 853918471] Future Scheduled 2024-09-11 [facility] 00:00:00 malignant neoplasm of cervix (procedure) [code = 435330881] Future Scheduled 2024-09-11 [facility] 00:00:00 malignant neoplasm of cervix (procedure) [code = 154471032] Future Scheduled 2024-09-11 [facility] 00:00:00 malignant neoplasm of cervix (procedure) [code = 441750366] Future Scheduled 2024-09-11 [facility] 00:00:00 malignant neoplasm of cervix (procedure) [code = 661620077] Future Scheduled 2024-09-11 [facility] 00:00:00 malignant neoplasm of cervix (procedure) [code = 072634172] Future Scheduled 2024-09-11 [facility] 00:00:00 malignant neoplasm of cervix (procedure) [code = 089156430] Future Scheduled 2024-09-11 [facility] 00:00:00 malignant neoplasm of cervix (procedure) [code = 357761731] Future Scheduled 2024-09-11 [facility] 00:00:00 malignant neoplasm of cervix (procedure) [code = 937974791] Future Scheduled 2024-09-11 [facility] 00:00:00 malignant neoplasm of cervix (procedure) [code = 165208264] Future Scheduled 2024-09-11 [facility] 00:00:00 malignant neoplasm of cervix (procedure) [code = 463684805] Future Scheduled 2024-09-11 [facility] 00:00:00 malignant neoplasm of cervix (procedure) [code = 513023422] Future Scheduled 2024-09-11 [facility] 00:00:00 malignant neoplasm of cervix (procedure) [code = 871246752] Future Scheduled 2024-09-11 [facility] 00:00:00 malignant neoplasm of cervix (procedure) [code = 765301077] Future Scheduled 2024-09-11 [facility] 00:00:00 malignant neoplasm of cervix (procedure) [code = 870798006] Future Scheduled 2024-09-11 [facility] 00:00:00 malignant neoplasm of cervix (procedure) [code = 013442546] Future Scheduled 2024-09-11 [facility] 00:00:00 malignant neoplasm of cervix (procedure) [code = 646806866] Future Scheduled 2024-09-11 [facility] 00:00:00 malignant neoplasm of cervix (procedure) [code = 218439767] Future Scheduled 2024-09-11 [facility] 00:00:00 malignant neoplasm of cervix (procedure) [code = 835304154] Future Scheduled 2024-09-11 [facility] 00:00:00 malignant neoplasm of cervix (procedure) [code = 078451421] Future Scheduled 2024-09-11 [facility] 00:00:00 malignant neoplasm of cervix (procedure) [code = 701217381] Future Scheduled 2024-09-11 [facility] 00:00:00 malignant neoplasm of cervix (procedure) [code = 503759266] Future Scheduled 2023-02-04 HEPATITIS B VACCINES Met [facility] Test 21:59:28 (1 of 3 - 3-dose series) [code = HEPATITIS B VACCINES (1 of 3 - 3-dose series)] Future Scheduled 2023-02-04 Pneumococcal Vaccine: [facility] Test 21:59:28 Pediatrics (0 to 5 Years) and At-Risk Patients (6 to 64 Years) (1 - PCV) [code = Pneumococcal Vaccine: Pediatrics (0 to 5 Years) and At-Risk Patients (6 to 64 Years) (1 - PCV)] Future Scheduled 2023-02-04 SHINGLES VACCINES (1 Met [facility] Test 21:59:28 of 2) [code = SHINGLES VACCINES (1 of 2)] Future Scheduled 2023-02-04 BREAST CANCER [facility] Test 21:59:28 SCREENING [code = BREAST CANCER SCREENING] Future Scheduled 2023-02-04 COVID-19 VACCINE (3 - [facility] Test 21:59:28 season) [code = COVID-19 VACCINE (3 - season)] Future Scheduled 2023-02-04 INFLUENZA VACCINE (#1) [facility] Test 21:59:28 [code = INFLUENZA VACCINE (#1)] Future Scheduled 2023-02-04 [facility] 21:59:28 malignant neoplasm of cervix (procedure) [code = 352751323] Future Scheduled 2023-02-04 HEPATITIS B VACCINES Met [facility] Test 21:59:28 (1 of 3 - 3-dose series) [code = HEPATITIS B VACCINES (1 of 3 - 3-dose series)] Future Scheduled 2023-02-04 [facility] 21:59:28 Pediatrics (0 to 5 Years) and At-Risk Patients (6 to 64 Years) (1 - PCV) [code = Pneumococcal Vaccine: Pediatrics (0 to 5 Years) and At-Risk Patients (6 to 64 Years) (1 - PCV)] Future Scheduled 2023-02-04 SHINGLES VACCINES (1 Met [facility] Test 21:59:28 of 2) [code = SHINGLES VACCINES (1 of 2)] Future Scheduled 2023-02-04 BREAST CANCER [facility] Test 21:59:28 SCREENING [code = BREAST CANCER SCREENING] Future Scheduled 2023-02-04 COVID-19 VACCINE (3 - [facility] Test 21:59:28 ) [code = COVID-19 VACCINE ()] Future Scheduled 2023-02-04 INFLUENZA VACCINE (#1) [facility] Test 21:59:28 [code = INFLUENZA VACCINE (#1)] Future Scheduled 2023-02-04 Screening for [facility] Test 21:59:28 malignant neoplasm of cervix (procedure) [code = 898482334] Future Scheduled 2023-02-04 HEPATITIS B VACCINES Met [facility] Test 21:59:28 (1 of 3 - 3-dose series) [code = HEPATITIS B VACCINES (1 of 3 - 3-dose series)] Future Scheduled 2023-02-04 Pneumococcal Vaccine: [facility] Test 21:59:28 Pediatrics (0 to 5 Years) and At-Risk Patients (6 to 64 Years) (1 - PCV) [code = Pneumococcal Vaccine: Pediatrics (0 to 5 Years) and At-Risk Patients (6 to 64 Years) (1 - PCV)] Future Scheduled 2023-02-04 SHINGLES VACCINES (1 Met [facility] Test 21:59:28 of 2) [code = SHINGLES VACCINES (1 of 2)] Future Scheduled 2023-02-04 BREAST CANCER [facility] Test 21:59:28 SCREENING [code = BREAST CANCER SCREENING] Future Scheduled 2023-02-04 COVID-19 VACCINE (3 - [facility] Test 21:59:28 ) [code = COVID-19 VACCINE ( - )] Future Scheduled 2023-02-04 INFLUENZA VACCINE (#1) [facility] Test 21:59:28 [code = INFLUENZA VACCINE (#1)] Future Scheduled 2023-02-04 Screening for [facility] Test 21:59:28 malignant neoplasm of cervix (procedure) [code = 921561293] Future Scheduled 2023-01-20 HEPATITIS B VACCINES Met [facility] Test 14:04:46 (1 of 3 - 3-dose series) [code = HEPATITIS B VACCINES (1 of 3 - 3-dose series)] Future Scheduled 2023-01-20 Pneumococcal Vaccine: [facility] Test 14:04:46 Pediatrics (0 to 5 Years) and At-Risk Patients (6 to 64 Years) (1 - PCV) [code = Pneumococcal Vaccine: Pediatrics (0 to 5 Years) and At-Risk Patients (6 to 64 Years) (1 - PCV)] Future Scheduled 2023-01-20 SHINGLES VACCINES (1 Met [facility] Test 14:04:46 of 2) [code = SHINGLES VACCINES (1 of 2)] Future Scheduled 2023-01-20 COVID-19 VACCINE (3 - [facility] Test 14:04:46 Pfizer series) [code = COVID-19 VACCINE (3 - Pfizer series)] Future Scheduled 2023-01-20 BREAST CANCER [facility] Test 14:04:46 SCREENING [code = BREAST CANCER SCREENING] Future Scheduled 2023-01-20 INFLUENZA VACCINE (#1) [facility] Test 14:04:46 [code = INFLUENZA VACCINE (#1)] Future Scheduled 2023-01-20 Screening for [facility] Test 14:04:46 malignant neoplasm of cervix (procedure) [code = 428572727] Future Scheduled 2023-01-10 IMM Influenza Seasonal H [...] Future Scheduled 2023-01-10 IMM Influenza Seasonal [facility] Test 00:00:00 (>/= 19 yrs) [code = IMM Influenza Seasonal (>/= 19 yrs)] Future Scheduled 2022-12-14 HEPATITIS B VACCINES Met [facility] Test 14:02:36 (1 of 3 - 3-dose series) [code = HEPATITIS B VACCINES (1 of 3 - 3-dose series)] Future Scheduled 2022-12-14 Pneumococcal Vaccine: [facility] Test 14:02:36 Pediatrics (0 to 5 Years) and At-Risk Patients (6 to 64 Years) (1 - PCV) [code = Pneumococcal Vaccine: Pediatrics (0 to 5 Years) and At-Risk Patients (6 to 64 Years) (1 - PCV)] Future Scheduled 2022-12-14 SHINGLES VACCINES (1 Met [facility] Test 14:02:36 of 2) [code = SHINGLES VACCINES (1 of 2)] Future Scheduled 2022-12-14 COVID-19 VACCINE (3 - [facility] Test 14:02:36 Pfizer series) [code = COVID-19 VACCINE (3 - Pfizer series)] Future Scheduled 2022-12-14 BREAST CANCER [facility] Test 14:02:36 SCREENING [code = BREAST CANCER SCREENING] Future Scheduled 2022-12-14 INFLUENZA VACCINE (#1) M [facility] Test 14:02:36 [code = INFLUENZA VACCINE (#1)] Future Scheduled 2022-12-14 Screening for [facility] Test 14:02:36 malignant neoplasm of cervix (procedure) [code = 466929986] Future Scheduled 2022-12-14 HEPATITIS B VACCINES Met [facility] Test 14:02:36 (1 of 3 - 3-dose series) [code = HEPATITIS B VACCINES (1 of 3 - 3-dose series)] Future Scheduled 2022-12-14 Pneumococcal Vaccine: [facility] Test 14:02:36 Pediatrics (0 to 5 Years) and At-Risk Patients (6 to 64 Years) (1 - PCV) [code = Pneumococcal Vaccine: Pediatrics (0 to 5 Years) and At-Risk Patients (6 to 64 Years) (1 - PCV)] Future Scheduled 2022-12-14 SHINGLES VACCINES (1 Met [facility] Test 14:02:36 of 2) [code = SHINGLES VACCINES (1 of 2)] Future Scheduled 2022-12-14 COVID-19 VACCINE (3 - [facility] Test 14:02:36 Pfizer series) [code = COVID-19 VACCINE (3 - Pfizer series)] Future Scheduled 2022-12-14 BREAST CANCER [facility] Test 14:02:36 SCREENING [code = BREAST CANCER SCREENING] Future Scheduled 2022-12-14 INFLUENZA VACCINE (#1) M [facility] Test 14:02:36 [code = INFLUENZA VACCINE (#1)] Future Scheduled 2022-12-14 Screening for [facility] Test 14:02:36 malignant neoplasm of cervix (procedure) [code = 034016470] Future Scheduled 2022-12-11 IMM Influenza Seasonal H [...] Future Scheduled 2022-11-23 HEPATITIS B VACCINES Met [facility] Test 15:50:17 (1 of 3 - 3-dose series) [code = HEPATITIS B VACCINES (1 of 3 - 3-dose series)] Future Scheduled 2022-11-23 Pneumococcal Vaccine: [facility] Test 15:50:17 Pediatrics (0 to 5 Years) and At-Risk Patients (6 to 64 Years) (1 - PCV) [code = Pneumococcal Vaccine: Pediatrics (0 to 5 Years) and At-Risk Patients (6 to 64 Years) (1 - PCV)] Future Scheduled 2022-11-23 SHINGLES VACCINES (1 Met [facility] Test 15:50:17 of 2) [code = SHINGLES VACCINES (1 of 2)] Future Scheduled 2022-11-23 COVID-19 VACCINE (3 - [facility] Test 15:50:17 Pfizer series) [code = COVID-19 VACCINE (3 - Pfizer series)] Future Scheduled 2022-11-23 BREAST CANCER [facility] Test 15:50:17 SCREENING [code = BREAST CANCER SCREENING] Future Scheduled 2022-11-23 ZZZ INFLUENZA VACCINE [facility] Test 15:50:17 [code = ZZZ INFLUENZA VACCINE] Future Scheduled 2022-11-23 Screening for [facility] Test 15:50:17 malignant neoplasm of cervix (procedure) [code = 553425962] Future Scheduled 2022-11-16 HEPATITIS B VACCINES Met [facility] Test 15:11:20 (1 of 3 - 3-dose series) [code = HEPATITIS B VACCINES (1 of 3 - 3-dose series)] Future Scheduled 2022-11-16 Pneumococcal Vaccine: [facility] Test 15:11:20 Pediatrics (0 to 5 Years) and At-Risk Patients (6 to 64 Years) (1 - PCV) [code = Pneumococcal Vaccine: Pediatrics (0 to 5 Years) and At-Risk Patients (6 to 64 Years) (1 - PCV)] Future Scheduled 2022-11-16 SHINGLES VACCINES (1 Met [facility] Test 15:11:20 of 2) [code = SHINGLES VACCINES (1 of 2)] Future Scheduled 2022-11-16 COVID-19 VACCINE (3 - [facility] Test 15:11:20 Pfizer series) [code = COVID-19 VACCINE (3 - Pfizer series)] Future Scheduled 2022-11-16 BREAST CANCER [facility] Test 15:11:20 SCREENING [code = BREAST CANCER SCREENING] Future Scheduled 2022-11-16 INFLUENZA VACCINE Method [facility] Test 15:11:20 [code = INFLUENZA VACCINE] Future Scheduled 2022-11-16 Screening for [facility] Test 15:11:20 malignant neoplasm of cervix (procedure) [code = 920774635] Future Scheduled 2022-10-02 HEPATITIS B VACCINES Met [facility] Test 12:32:01 (1 of 3 - 3-dose series) [code = HEPATITIS B VACCINES (1 of 3 - 3-dose series)] Future Scheduled 2022-10-02 Pneumococcal Vaccine: [facility] Test 12:32:01 Pediatrics (0 to 5 Years) and At-Risk Patients (6 to 64 Years) (1 - PCV) [code = Pneumococcal Vaccine: Pediatrics (0 to 5 Years) and At-Risk Patients (6 to 64 Years) (1 - PCV)] Future Scheduled 2022-10-02 SHINGLES VACCINES (1 Met [facility] Test 12:32:01 of 2) [code = SHINGLES VACCINES (1 of 2)] Future Scheduled 2022-10-02 COVID-19 VACCINE (3 - [facility] Test 12:32:01 Pfizer series) [code = COVID-19 VACCINE (3 - Pfizer series)] Future Scheduled 2022-10-02 BREAST CANCER [facility] Test 12:32:01 SCREENING [code = BREAST CANCER SCREENING] Future Scheduled 2022-10-02 INFLUENZA VACCINE Method [facility] Test 12:32:01 [code = INFLUENZA VACCINE] Future Scheduled 2022-10-02 Screening for [facility] Test 12:32:01 malignant neoplasm of cervix (procedure) [code = 020523648] Future Scheduled 2022-09-11 HEPATITIS B VACCINES Met [facility] Test 08:52:14 (1 of 3 - 3-dose series) [code = HEPATITIS B VACCINES (1 of 3 - 3-dose series)] Future Scheduled 2022-09-11 Pneumococcal Vaccine: [facility] Test 08:52:14 Pediatrics (0 to 5 Years) and At-Risk Patients (6 to 64 Years) (1 - PCV) [code = Pneumococcal Vaccine: Pediatrics (0 to 5 Years) and At-Risk Patients (6 to 64 Years) (1 - PCV)] Future Scheduled 2022-09-11 COLONOSCOPY SCREENING [facility] Test 08:52:14 [code = COLONOSCOPY SCREENING] Future Scheduled 2022-09-11 SHINGLES VACCINES (1 Met [facility] Test 08:52:14 of 2) [code = SHINGLES VACCINES (1 of 2)] Future Scheduled 2022-09-11 COVID-19 VACCINE (3 - [facility] Test 08:52:14 Booster for Pfizer series) [code = COVID-19 VACCINE (3 - Booster for Pfizer series)] Future Scheduled 2022-09-11 BREAST CANCER [facility] Test 08:52:14 SCREENING [code = BREAST CANCER SCREENING] Future Scheduled 2022-09-11 INFLUENZA VACCINE Method [facility] Test 08:52:14 [code = INFLUENZA VACCINE] Future Scheduled 2022-09-11 Screening for [facility] Test 08:52:14 malignant neoplasm of cervix (procedure) [code = 401852803] Future Scheduled 2022-08-06 HEPATITIS B VACCINES Met [facility] Test 21:07:15 (1 of 3 - 3-dose series) [code = HEPATITIS B VACCINES (1 of 3 - 3-dose series)] Future Scheduled 2022-08-06 Pneumococcal Vaccine: [facility] Test 21:07:15 Pediatrics (0 to 5 Years) and At-Risk Patients (6 to 64 Years) (1 - PCV) [code = Pneumococcal Vaccine: Pediatrics (0 to 5 Years) and At-Risk Patients (6 to 64 Years) (1 - PCV)] Future Scheduled 2022-08-06 COLONOSCOPY SCREENING [facility] Test 21:07:15 [code = COLONOSCOPY SCREENING] Future Scheduled 2022-08-06 SHINGLES VACCINES (1 Met [facility] Test 21:07:15 of 2) [code = SHINGLES VACCINES (1 of 2)] Future Scheduled 2022-08-06 COVID-19 VACCINE (3 - [facility] Test 21:07:15 Booster for Pfizer series) [code = COVID-19 VACCINE (3 - Booster for Pfizer series)] Future Scheduled 2022-08-06 BREAST CANCER [facility] Test 21:07:15 SCREENING [code = BREAST CANCER SCREENING] Future Scheduled 2022-08-06 INFLUENZA VACCINE Method [facility] Test 21:07:15 [code = INFLUENZA VACCINE] Future Scheduled 2022-08-06 Screening for [facility] Test 21:07:15 malignant neoplasm of cervix (procedure) [code = 796025495] Future Scheduled 2022-06-22 HEPATITIS B VACCINES Met [facility] Test 14:13:36 (1 of 3 - 3-dose series) [code = HEPATITIS B VACCINES (1 of 3 - 3-dose series)] Future Scheduled 2022-06-22 Pneumococcal Vaccine: [facility] Test 14:13:36 Pediatrics (0 to 5 Years) and At-Risk Patients (6 to 64 Years) (1 - PCV) [code = Pneumococcal Vaccine: Pediatrics (0 to 5 Years) and At-Risk Patients (6 to 64 Years) (1 - PCV)] Future Scheduled 2022-06-22 COLONOSCOPY SCREENING [facility] Test 14:13:36 [code = COLONOSCOPY SCREENING] Future Scheduled 2022-06-22 SHINGLES VACCINES (1 Met [facility] Test 14:13:36 of 2) [code = SHINGLES VACCINES (1 of 2)] Future Scheduled 2022-06-22 COVID-19 VACCINE (3 - [facility] Test 14:13:36 Booster for Pfizer series) [code = COVID-19 VACCINE (3 - Booster for Pfizer series)] Future Scheduled 2022-06-22 INFLUENZA VACCINE Method [facility] Test 14:13:36 [code = INFLUENZA VACCINE] Future Scheduled 2022-06-22 BREAST CANCER [facility] Test 14:13:36 SCREENING [code = BREAST CANCER SCREENING] Future Scheduled 2022-06-22 Screening for [facility] Test 14:13:36 malignant neoplasm of cervix (procedure) [code = 132299420] Future Scheduled 2022 HEPATITIS B VACCINES Met [facility] Test 13:45:15 (1 of 3 - 3-dose series) [code = HEPATITIS B VACCINES (1 of 3 - 3-dose series)] Future Scheduled 2022 Pneumococcal Vaccine: [facility] Test 13:45:15 Pediatrics (0 to 5 Years) and At-Risk Patients (6 to 64 Years) (1 - PCV) [code = Pneumococcal Vaccine: Pediatrics (0 to 5 Years) and At-Risk Patients (6 to 64 Years) (1 - PCV)] Future Scheduled 2022 COLONOSCOPY SCREENING [facility] Test 13:45:15 [code = COLONOSCOPY SCREENING] Future Scheduled 2022 SHINGLES VACCINES (1 Met [facility] Test 13:45:15 of 2) [code = SHINGLES VACCINES (1 of 2)] Future Scheduled 2022 COVID-19 VACCINE (3 - [facility] Test 13:45:15 Booster for Pfizer series) [code = COVID-19 VACCINE (3 - Booster for Pfizer series)] Future Scheduled 2022 INFLUENZA VACCINE Method [facility] Test 13:45:15 [code = INFLUENZA VACCINE] Future Scheduled 2022 BREAST CANCER [facility] Test 13:45:15 SCREENING [code = BREAST CANCER SCREENING] Future Scheduled 2022 Screening for [facility] Test 13:45:15 malignant neoplasm of cervix (procedure) [code = 401166589] Future Scheduled 2022-04-17 HEPATITIS B VACCINES Met [facility] Test 10:21:02 (1 of 3 - 3-dose series) [code = HEPATITIS B VACCINES (1 of 3 - 3-dose series)] Future Scheduled 2022-04-17 Pneumococcal Vaccine: [facility] Test 10:21:02 Pediatrics (0 to 5 Years) and At-Risk Patients (6 to 64 Years) (1 - PCV) [code = Pneumococcal Vaccine: Pediatrics (0 to 5 Years) and At-Risk Patients (6 to 64 Years) (1 - PCV)] Future Scheduled 2022-04-17 COLONOSCOPY SCREENING [facility] Test 10:21:02 [code = COLONOSCOPY SCREENING] Future Scheduled 2022-04-17 SHINGLES VACCINES (1 Met [facility] Test 10:21:02 of 2) [code = SHINGLES VACCINES (1 of 2)] Future Scheduled 2022-04-17 COVID-19 VACCINE (3 - [facility] Test 10:21:02 Booster for Pfizer series) [code = COVID-19 VACCINE (3 - Booster for Pfizer series)] Future Scheduled 2022-04-17 INFLUENZA VACCINE Method [facility] Test 10:21:02 [code = INFLUENZA VACCINE] Future Scheduled 2022-04-17 BREAST CANCER [facility] Test 10:21:02 SCREENING [code = BREAST CANCER SCREENING] Future Scheduled 2022-04-17 Screening for [facility] Test 10:21:02 malignant neoplasm of cervix (procedure) [code = 076221168] Future Scheduled 2022-04-15 HEPATITIS B VACCINES Met [facility] Test 14:24:02 (1 of 3 - 3-dose series) [code = HEPATITIS B VACCINES (1 of 3 - 3-dose series)] Future Scheduled 2022-04-15 Pneumococcal Vaccine: [facility] Test 14:24:02 Pediatrics (0 to 5 Years) and At-Risk Patients (6 to 64 Years) (1 - PCV) [code = Pneumococcal Vaccine: Pediatrics (0 to 5 Years) and At-Risk Patients (6 to 64 Years) (1 - PCV)] Future Scheduled 2022-04-15 COLONOSCOPY SCREENING [facility] Test 14:24:02 [code = COLONOSCOPY SCREENING] Future Scheduled 2022-04-15 SHINGLES VACCINES (1 Met [facility] Test 14:24:02 of 2) [code = SHINGLES VACCINES (1 of 2)] Future Scheduled 2022-04-15 COVID-19 VACCINE (3 - [facility] Test 14:24:02 Booster for Pfizer series) [code = COVID-19 VACCINE (3 - Booster for Pfizer series)] Future Scheduled 2022-04-15 INFLUENZA VACCINE Method [facility] Test 14:24:02 [code = INFLUENZA VACCINE] Future Scheduled 2022-04-15 BREAST CANCER [facility] Test 14:24:02 SCREENING [code = BREAST CANCER SCREENING] Future Scheduled 2022-04-15 Screening for [facility] Test 14:24:02 malignant neoplasm of cervix (procedure) [code = 062750350] Future Scheduled 2022-04-03 HEPATITIS B VACCINES Met [facility] Test 09:31:00 (1 of 3 - 3-dose series) [code = HEPATITIS B VACCINES (1 of 3 - 3-dose series)] Future Scheduled 2022-04-03 Pneumococcal Vaccine: [facility] Test 09:31:00 Pediatrics (0 to 5 Years) and At-Risk Patients (6 to 64 Years) (1 - PCV) [code = Pneumococcal Vaccine: Pediatrics (0 to 5 Years) and At-Risk Patients (6 to 64 Years) (1 - PCV)] Future Scheduled 2022-04-03 COLONOSCOPY SCREENING [facility] Test 09:31:00 [code = COLONOSCOPY SCREENING] Future Scheduled 2022-04-03 SHINGLES VACCINES (1 Met [facility] Test 09:31:00 of 2) [code = SHINGLES VACCINES (1 of 2)] Future Scheduled 2022-04-03 COVID-19 VACCINE (3 - [facility] Test 09:31:00 Booster for Pfizer series) [code = COVID-19 VACCINE (3 - Booster for Pfizer series)] Future Scheduled 2022-04-03 INFLUENZA VACCINE Method [facility] Test 09:31:00 [code = INFLUENZA VACCINE] Future Scheduled 2022-04-03 BREAST CANCER [facility] Test 09:31:00 SCREENING [code = BREAST CANCER SCREENING] Future Scheduled 2022-04-03 Screening for [facility] Test 09:31:00 malignant neoplasm of cervix (procedure) [code = 700657182] Future Scheduled 2022-03-05 HEPATITIS B VACCINES Met [facility] Test 00:08:56 (1 of 3 - 3-dose series) [code = HEPATITIS B VACCINES (1 of 3 - 3-dose series)] Future Scheduled 2022-03-05 Pneumococcal Vaccine: [facility] Test 00:08:56 Pediatrics (0 to 5 Years) and At-Risk Patients (6 to 64 Years) (1 - PCV) [code = Pneumococcal Vaccine: Pediatrics (0 to 5 Years) and At-Risk Patients (6 to 64 Years) (1 - PCV)] Future Scheduled 2022-03-05 COLONOSCOPY SCREENING [facility] Test 00:08:56 [code = COLONOSCOPY SCREENING] Future Scheduled 2022-03-05 SHINGLES VACCINES (1 Met [facility] Test 00:08:56 of 2) [code = SHINGLES VACCINES (1 of 2)] Future Scheduled 2022-03-05 COVID-19 VACCINE (3 - [facility] Test 00:08:56 Booster for Pfizer series) [code = COVID-19 VACCINE (3 - Booster for Pfizer series)] Future Scheduled 2022-03-05 INFLUENZA VACCINE Method [facility] Test 00:08:56 [code = INFLUENZA VACCINE] Future Scheduled 2022-03-05 BREAST CANCER [facility] Test 00:08:56 SCREENING [code = BREAST CANCER SCREENING] Future Scheduled 2022-03-05 Screening for [facility] Test 00:08:56 malignant neoplasm of cervix (procedure) [code = 960732925] Future Scheduled 2022-03-05 HEPATITIS B VACCINES Met [facility] Test 00:08:56 (1 of 3 - 3-dose series) [code = HEPATITIS B VACCINES (1 of 3 - 3-dose series)] Future Scheduled 2022-03-05 Pneumococcal Vaccine: [facility] Test 00:08:56 Pediatrics (0 to 5 Years) and At-Risk Patients (6 to 64 Years) (1 - PCV) [code = Pneumococcal Vaccine: Pediatrics (0 to 5 Years) and At-Risk Patients (6 to 64 Years) (1 - PCV)] Future Scheduled 2022-03-05 COLONOSCOPY SCREENING [facility] Test 00:08:56 [code = COLONOSCOPY SCREENING] Future Scheduled 2022-03-05 SHINGLES VACCINES (1 Met [facility] Test 00:08:56 of 2) [code = SHINGLES VACCINES (1 of 2)] Future Scheduled 2022-03-05 COVID-19 VACCINE (3 - [facility] Test 00:08:56 Booster for Pfizer series) [code = COVID-19 VACCINE (3 - Booster for Pfizer series)] Future Scheduled 2022-03-05 INFLUENZA VACCINE Method [facility] Test 00:08:56 [code = INFLUENZA VACCINE] Future Scheduled 2022-03-05 BREAST CANCER [facility] Test 00:08:56 SCREENING [code = BREAST CANCER SCREENING] Future Scheduled 2022-03-05 Screening for [facility] Test 00:08:56 malignant neoplasm of cervix (procedure) [code = 038180784] Future Scheduled 2022-02-22 HEPATITIS B VACCINES Met [facility] Test 22:17:15 (1 of 3 - 3-dose series) [code = HEPATITIS B VACCINES (1 of 3 - 3-dose series)] Future Scheduled 2022-02-22 Pneumococcal Vaccine: [facility] Test 22:17:15 Pediatrics (0 to 5 Years) and At-Risk Patients (6 to 64 Years) (1 - PCV) [code = Pneumococcal Vaccine: Pediatrics (0 to 5 Years) and At-Risk Patients (6 to 64 Years) (1 - PCV)] Future Scheduled 2022-02-22 COLONOSCOPY SCREENING [facility] Test 22:17:15 [code = COLONOSCOPY SCREENING] Future Scheduled 2022-02-22 SHINGLES VACCINES (1 Met [facility] Test 22:17:15 of 2) [code = SHINGLES VACCINES (1 of 2)] Future Scheduled 2022-02-22 COVID-19 VACCINE (3 - [facility] Test 22:17:15 Booster for Pfizer series) [code = COVID-19 VACCINE (3 - Booster for Pfizer series)] Future Scheduled 2022-02-22 INFLUENZA VACCINE Method [facility] Test 22:17:15 [code = INFLUENZA VACCINE] Future Scheduled 2022-02-22 BREAST CANCER [facility] Test 22:17:15 SCREENING [code = BREAST CANCER SCREENING] Future Scheduled 2022-02-22 Screening for [facility] Test 22:17:15 malignant neoplasm of cervix (procedure) [code = 450314998] Future Scheduled 2022-01-10 IMM Influenza Seasonal H [...] malignant neoplasm of colon (procedure) [code = 603304225] Future Scheduled 2019 Screening for [facility] Test 00:[facility]:00 malignant neoplasm of colon (procedure) [code = 040433173] Future Scheduled 2019 Screening for [facility] Test 00:00:00 malignant neoplasm of colon (procedure) [code = 512991415] Future Scheduled 2019 Screening for [facility] Test 00:00:00 malignant neoplasm of colon (procedure) [code = 490022142] Future Scheduled 2019 Screening for [facility] Test 00:00:00 malignant neoplasm of colon (procedure) [code = 984446769] Future Scheduled 2019 Screening for [facility] Test 00:00:00 malignant neoplasm of colon (procedure) [code = 916202308] Future Scheduled 2019 Screening for [facility] Test 00:00:00 malignant neoplasm of colon (procedure) [code = 947367091] Future Scheduled 2019 Screening for [facility] Test 00:00:00 malignant neoplasm of colon (procedure) [code = 024957981] Future Scheduled 2019 Screening for [facility] Test 00:00:00 malignant neoplasm of colon (procedure) [code = 001392986] Future Scheduled 2019 Screening for [facility] Test 00:00:00 malignant neoplasm of colon (procedure) [code = 462133623] Future Scheduled 2019 Screening for [facility] Test 00:00:00 malignant neoplasm of colon (procedure) [code = 696182233] Future Scheduled 2019 Screening for [facility] Test 00:00:00 malignant neoplasm of colon (procedure) [code = 027243838] Future Scheduled 2019 Screening for [facility] Test 00:00:00 malignant neoplasm of colon (procedure) [code = 884373485] Future Scheduled 2019 Screening for [facility] Test 00:00:00 malignant neoplasm of colon (procedure) [code = 253456972] Future Scheduled 2019 Screening for [facility] Test 00:00:00 malignant neoplasm of colon (procedure) [code = 023312969] Future Scheduled 2019 Screening for [facility] Test 00:00:00 malignant neoplasm of colon (procedure) [code = 813066143] Future Scheduled 2019 Screening for [facility] Test 00:00:00 malignant neoplasm of colon (procedure) [code = 263218537] Future Scheduled 2019 Screening for [facility] Test 00:00:00 malignant neoplasm of colon (procedure) [code = 345845129] Future Scheduled 2019 Screening for [facility] Test 00:00:00 malignant neoplasm of colon (procedure) [code = 435247474] Future Scheduled 1975 Imm Pneumococcal 0-64 Maria [...] Clinicians Facility Department ID 2022-11-16 Outpatient .nyarp [facility] [id number] [facility] 05:03:14 [id number] [facility] 2022-04-23 Outpatient [facility] [id number] [place] 15:11:46 [id number] Health 2023-06-15 2023-06-15 Outpatient ELLIE BAXTER [facility] [id number] [place] 14:00:00 14:00:00 Health 2023-02-06 2023-02-06 Outpatient GC_[id number] PRIV PRIV [id number] [facility] 00:00:00 00:00:00 diyala_S [id number] Medic al 2022-12-25 2022-12-25 Outpatient SFA SFA Vadim 16:12:57 16:12:57 [id number] F Jonathan 2022-12-19 2022-12-19 Outpatient SFA [facility] 10:18:19 10:18:19 [id number] F Jonathan 2022-12-17 2022-12-17 Outpatient SFA SFA [facility] 10:01:16 10:01:16 [id number] F Jonathan 2022-11-17 2022-11-17 Outpatient SFA SFA [facility] 09:30:40 09:30:40 [id number] F Jonathan 2022-11-06 2022-11-06 Outpatient SFA SFA [facility]im 08:17:59 08:17:59 [id number] F Jonathan 2022-09-14 2022-09-14 Outpatient SFA SFA Vadim 14:26:13 14:26:13 [id number] F Jonathan 2022-09-10 2022-09-10 Orders Fabby, 1.2.840.1 [id number] 0999 Methodi 00:00:00 00:00:00 Only [place] 17431.1.[address] Kelley 3.430.2.7 Hospit a .3.102650 l .8 2022-09-10 2022-09-10 Telephone Jean, 1.2.840.1 [id number] 2099 [id number] Methodi 00:00:00 00:00:[address] 3.430.2.7 Hospit a .3.228132 l .8 2022-09-10 2022-09-10 Orders Fabby, 1.2.840.1 [id number] 7477 Methodi 00:00:00 00:00:00 Only [place] 17945.1.[address] Kelley 3.430.2.7 Hospit a .3.286161 l .8 2022-09-10 2022-09-10 Telephone Jean, 1.2.840.1 [id number] 2099 [id number] Methodi 00:00:00 00:00:[address] 3.430.2.7 Hospit a .3.571380 l .8 2022-05-15 2022-05-15 Outpatient KELLI ALDANA [id number] Kelli 00:00:00 00:00:00 SHINE ren 2022-02-19 2022-02-19 Emergency Vasquez, 1.2.840.1 [id number] 2099 [id number] Methodi 18:09:00 20:16:[address] Bennett 3.430.2.7 Hosp shai .3.563307 l .8 2022-02-12 2022-02-12 Orders Lopez, 1.2.840.1 [id number] 83777 46621 Methodi 00:00:00 00:00:00 Only Maureen 77756.1.[address] 3.430.2.7 Hospit a .3.377052 l .8 2022-02-11 2022-02-11 Orders Lopez, 1.2.840.1 [id number] 26053 02912 Methodi 00:00:00 00:00:00 Only Maureen 56550.1.[address] 3.430.2.7 Hospit a .3.375372 l .8 2022-02-11 2022-02-11 Telephone Prasanth, 1.2.840.1 [id number] 2099 [id number] Methodi 00:00:00 00:00:[address] 3.430.2.7 Hospit a .3.329768 l .8 2022-02-09 2022-02-09 Outpatient COH [facility] PDPFCCG ETQ COH 00:00:00 00:00:00 [id number] 2022-02-09 2022-02-09 Telephone Prasanth, 1.2.840.1 [id number] 2099 [id number] Methodi 00:00:00 00:00:[address] 3.430.2.7 Hospit a .3.893288 l .8 2022-02-05 2022-02-05 Lab Prasanth, 1.2.840.1 [id number] 275066 5151 Methodi 10:50:00 10:55:00 Eddie Franco [address]1898.1.[address] 3.430.2.7 Hospit a .3.036875 l .8 2022-02-05 2022-02-05 Office Prasanth, 1.2.840.1 [id number] 9567 Methodi 09:40:00 10:31:06 Visit Eddie Ballesteros50.1.[address] 3.430.2.7 Hospit a .3.970307 l .8 2022-02-05 2022-02-05 Refill Alicia 1.2.840.1 [id number] 9776 Methodi 00:00:00 00:00:[address] Doe 3.430.2.7 Hospi ta .3.393598 l .8 2022-02-05 2022-02-05 Travel 1.2.840.1 1.2.987.719 8134 976400 Methodi 00:00:00 00:00:[address] 3.430.2.7 0.2.7.3.698 Ho spita .3.637639 084.8 l .8 2022-02-03 2022-02-03 Telephone Prasanth, 1.2.840.1 [id number] 2099 [id number] Methodi 00:00:00 00:00:[address] 3.430.2.7 Hospit a .3.906745 l .8 2022-01-01 2022-01-01 Telephone Mccallum, 1.2.840.1 [id number] 2099 [id number] Methodi 00:00:00 00:00:[address] 3.430.2.7 Hospit a .3.475934 l .8 2021-12-26 2021-12-26 Surgery [facility], 1.2.840.1 [id number] 867491 1761 Methodi 11:00:00 11:45:[address] Hasan 3.430.2.7 Hospit a .3.237882 l .8 2021-12-26 2021-12-26 Hospital [facility], 1.2.840.1 [id number] 28909 91874 Methodi 10:21:00 11:28:00 Encounter Proctor 53232.1.[address] Hasan 3.430.2.7 Hospit a .3.687094 l .8 2021-12-26 2021-12-26 Anesthesia Hans Casper 1.2.840.1 [id number] Methodi 10:44:00 11:06:00 Event Vitaliy 09896.1.[address] 3.430.2.7 Hospit a .3.872247 l .8 2021-12-26 2021-12-26 Travel 1.2.840.1 1.2.007.427 0682 720280 Methodi 00:00:00 00:00:[address] 3.430.2.7 0.2.7.3.698 Ho spita .3.711234 084.8 l .8 2021-12-24 2021-12-24 Lab Small, 1.2.840.1 [id number] 225599 0736 Methodi 08:00:00 08:15:[address] Hasan 3.430.2.7 Hospit a .3.783150 l .8 2021-12-24 2021-12-24 Orders Marc, 1.2.840.1 [id number] 0345 Methodi 00:00:00 00:00:00 Only Kortney 95445.1.[address] 3.430.2.7 Hospit a .3.385362 l .8 2021-12-18 2021-12-18 Office Prasanth, 1.2.840.1 [id number] 6921 Methodi 11:00:00 13:02:01 Visit Eddie Franco 31581.1.[address] 3.430.2.7 Hospit a .3.638406 l .8 2021-12-18 2021-12-18 Travel 1.2.840.1 1.2.792.839 5272 055734 Methodi 00:00:00 00:00:[address] 3.430.2.7 0.2.7.3.698 Ho spita .3.989585 084.8 l .8 2021-12-16 2021-12-16 Office Doug Estevez [facility] Encounter/ [facility] 00:00:00 00:00:00 Visit Bijan Carson [id number] [facility] [id number] [facility] 2021-12-09 2021-12-09 Refill Oleksandr, 1.2.840.1 [id number] 2099 [id number] Methodi 00:00:00 00:00:[address] 3.430.2.7 Hospit a .3.939057 l .8 2021-11-28 2021-11-28 Office Carly, 1.2.840.1 [id number] 102 [id number] Methodi 10:15:00 10:52:48 [place] 47518.1.[address] 3.430.2.7 Hospit a .3.882985 l .8 2021-11-28 2021-11-28 Travel 1.2.840.1 1.2.940.454 1756 149935 Methodi 00:00:00 00:00:[address] 3.430.2.7 0.2.7.3.698 Ho spita .3.225840 084.8 l .8 2021-11-17 2021-11-17 Office Fabby, 1.2.840.1 [id number] 442681 8044 Methodi 09:00:00 09:30:00 Visit [place] 18748.1.[address] Kelley 3.430.2.7 Hospit a .3.203006 l .8 2021-11-17 2021-11-17 Travel 1.2.840.1 1.2.152.179 3556 267139 Methodi 00:00:00 00:00:[address] 3.430.2.7 0.2.7.3.698 Ho spita .3.376418 084.8 l .8 2021-11-14 2021-11-14 Orders Istre, 1.2.840.1 [id number] 6305 Methodi 00:00:00 00:00:00 Only Shell 02952.1.[address] Doe 3.430.2.7 Hospi ta .3.902568 l .8 2021-11-11 2021-11-11 Telemedici Alicia, 1.2.840.1 [id number] 497 [id number] Methodi 10:00:00 10:40:34 ne Shell 03571.1.[address] Doe 3.430.2.7 Hospi ta .3.049141 l .8 2021-11-07 2021-11-07 Emergency Noel, 1.2.840.1 [id number] 2099 657696 Methodi 14:04:00 15:46:[address] Kirsten 3.430.2.7 Hospit a .3.642258 l .8 2021-11-07 2021-11-07 Travel 1.2.840.1 1.2.070.441 8471 000892 Methodi 00:00:00 00:00:[address] 3.430.2.7 0.2.7.3.698 Ho spita .3.898927 084.8 l .8 2021-11-03 2021-11-03 Lab Small, 1.2.840.1 [id number] 0141 Methodi 08:25:00 08:30:[address] Hasan 3.430.2.7 Hospit a .3.591365 l .8 2021-11-03 2021-11-03 Outpatient [facility] [id number] 623 [place] 00:00:00 00:00:00 PROCTOR [address] 2021-11-03 2021-11-03 Telephone Mccallum, 1.2.840.1 [id number] 2099 [id number] Methodi 00:00:00 00:00:[address] 3.430.2.7 Hospit a .3.693827 l .8 2021-11-03 2021-11-03 Travel 1.2.840.1 1.2.283.801 7810 614531 Methodi 00:00:00 00:00:[address] 3.430.2.7 0.2.7.3.698 Ho spita .3.804767 084.8 l .8 2021-10-29 2021-10-29 Documentat Binta, 1.2.840.1 [id number] 2 [id number] Methodi 00:00:00 00:00:00 ion Amanda 80806.1.[address] 3.430.2.7 Hospit a .3.038279 l .8 2021-10-29 2021-10-29 Prep for Binta, 1.2.840.1 [id number] 055 1744147 Methodi 00:00:00 00:00:00 Surgery Amanda 37631.1.[address] 3.430.2.7 Hospit a .3.226155 l .8 2021-10-29 2021-10-29 Telephone Binta, 1.2.840.1 [id number] 21 [id number] Methodi 00:00:00 00:00:[address] 3.430.2.7 Hospit a .3.539317 l .8 2021-10-29 2021-10-29 Travel 1.2.840.1 1.2.541.075 3790 695952 Methodi 00:00:00 00:00:[address] 3.430.2.7 0.2.7.3.698 Ho spita .3.232879 084.8 l .8 2021-10-22 2021-10-22 Office Kem, 1.2.840.1 [id number] 317 [id number] Methodi 09:40:00 10:17:00 Visit Rebecca Altagracia 94103.1.[address] 3.430.2.7 Hospit a .3.368850 l .8 2021-10-22 2021-10-22 Travel 1.2.840.1 1.2.861.618 7488 407764 Methodi 00:00:00 00:00:[address] 3.430.2.7 0.2.7.3.698 Ho spita .3.683678 084.8 l .8 2021-10-14 2021-10-15 Emergency Adry, 1.2.840.1 [id number] 511 7971954 Methodi 21:57:00 00:06:00 José H 81365.1.[address] 3.430.2.7 Hospit a .3.540077 l .8 2021-10-12 2021-10-12 Emergency Courtney, 1.2.840.1 [id number] 2100 175213 Methodi 10:13:00 14:37:00 Trung Swann 83594.1.[address] 3.430.2.7 Hospit a .3.153541 l .8 2021-10-09 2021-10-09 Telephone Juan Carlos Rivers 1.2.840.1 [id number] Methodi 00:00:00 00:00:[address] 3.430.2.7 Hospit a .3.363783 l .8 2021-10-09 2021-10-09 Telephone Juan Carlos Rivers 1.2.840.1 [id number] Methodi 00:00:00 00:00:[address] 3.430.2.7 Hospit a .3.816676 l .8 2021-10-09 2021-10-09 Orders Iscorwin, 1.2.840.1 [id number] 442605 7914 Methodi 00:00:00 00:00:00 Only Shell 42111.1.[address] Doe 3.430.2.7 Hospi ta .3.208272 l .8 2021-10-02 2021-10-02 Telephone Lazarus, 1.2.840.1 [id number] 531 [id number] Methodi 00:00:00 00:00:[address] 3.430.2.7 Hospit a .3.917807 l .8 2021-09-30 2021-09-30 Surgery Kem, 1.2.840.1 [id number] 728 [id number] Methodi 07:15:00 09:02:00 Rebecca Nguyen 82395.1.[address] 3.430.2.7 Hospit a .3.361194 l .8 2021-09-30 2021-09-30 [facility] Kem 1.2.840.1 [id number] 21 [id number] Methodi 06:02:00 08:50:00 Encounter Rebecca Nguyen 21744.1.[address] 3.430.2.7 Hospit a .3.648946 l .8 2021-09-30 2021-09-30 Anesthesia Tomas Mattson W. 1.2.840.1 1045 74947 [id number] Methodi 07:05:00 08:04:00 Event Ruddy Mariesy 49130.1.[address] 3.430.2.7 Hospit a .3.431920 l .8 2021-09-26 2021-09-26 Outpatient [facility] 2100 209710 [place] 00:00:00 00:00:00 REBECCAMICHAEL Baumann Method i st 2021-09-19 2021-09-19 Travel 1.2.840.1 1.2.660.323 7956 353024 Methodi 00:00:00 00:00:[address] 3.430.2.7 0.2.7.3.698 Ho spita .3.551216 084.8 l .8 2021-09-19 2021-09-19 Orders Marrero, 1.2.840.1 [id number] 2099 326323 Methodi 00:00:00 00:00:00 Only Sharon 02292.1.[address] 3.430.2.7 Hospit a .3.701082 l .8 2021-09-19 2021-09-19 Orders Tavares, 1.2.840.1 [id number] 892353 0814 Methodi 00:00:00 00:00:00 Only Peggy 05490.1.[address] 3.430.2.7 Hospit a .3.925159 l .8 2021-09-18 2021-09-18 Orders Propes, 1.2.840.1 [id number] 146243 7401 Methodi 00:00:00 00:00:00 Only Pina 98141.1.[address] 3.430.2.7 Hospit a .3.946103 l .8 2021-09-14 2021-09-14 Orders Tavares, 1.2.840.1 [id number] 233802 0861 Methodi 00:00:00 00:00:00 Only Peggy 87497.1.[address] 3.430.2.7 Hospit a .3.211564 l .8 2021-09-11 2021-09-11 Office Tavares, 1.2.840.1 [id number] 566654 3977 Methodi 15:50:00 16:55:49 Visit Peggy 65400.1.[address] 3.430.2.7 Hospit a .3.137692 l .8 2021-09-11 2021-09-11 Travel 1.2.840.1 1.2.699.144 3022 600296 Methodi 00:00:00 00:00:[address] 3.430.2.7 0.2.7.3.698 Ho spita .3.163550 084.8 l .8 2021-09-10 2021-09-10 Office Kem, 1.2.840.1 [id number] 172 [id number] Methodi 10:40:00 11:03:05 Visit Rebecca Nguyen 65006.1.[address] 3.430.2.7 Hospit a .3.170369 l .8 2021-09-10 2021-09-10 Orders Wyatt, 1.2.840.1 [id number] 2099 [id number] Methodi 00:00:00 00:00:00 Only Jami 99882.1.[address] 3.430.2.7 Hospit a .3.631446 l .8 2021-09-10 2021-09-10 Outpatient [facility] [id number] [place] 00:00:00 00:00:00 REBECCA Tran Method i st 2021-08-31 2021-08-31 Refill Istre, 1.2.840.1 [id number] 807169 2939 Methodi 00:00:00 00:00:[address] [place] 3.430.2.7 Hospi ta .3.063615 l .8 2021-08-31 2021-08-31 Refill Prasanth, 1.2.840.1 [id number] 1231 Methodi 00:00:00 00:00:00 Eddie Salvador 64616.1.[address] 3.430.2.7 Hospit a .3.611674 l .8 2021-08-29 2021-08-29 Telephone Denisse, 1.2.840.1 [id number] 2099 626233 Methodi 00:00:00 00:00:00 [place] Ray 19246.1.[address] 3.430.2.7 Hospit a .3.206464 l .8 2021-08-29 2021-08-29 Orders Istre, 1.2.840.1 [id number] 365763 6181 Methodi 00:00:00 00:00:00 Only Shell 14615.1.[address] [place] 3.430.2.7 Hospi ta .3.115581 l .8 2021-08-28 2021-08-28 Travel 1.2.840.1 1.2.667.045 1913 361588 Methodi 00:00:00 00:00:[address] 3.430.2.7 0.2.7.3.698 Ho spita .3.450526 084.8 l .8 2021-08-26 2021-08-26 Emergency Mazin, 1.2.840.1 [id number] 2099 485472 Methodi 16:36:00 20:08:[address] Adrienne 3.430.2.7 Hospit a .3.410232 l .8 2021-08-26 2021-08-26 Orders Colmohsener, 1.2.840.1 [id number] 746 0064530 Methodi 00:00:00 00:00:00 Only Linda 29039.1.[address] 3.430.2.7 Hospit a .3.656503 l .8 2021-08-21 2021-08-21 Orders Colmenter, 1.2.840.1 [id number] 840 6021516 Methodi 00:00:00 00:00:00 Only Linda 18691.1.[address] 3.430.2.7 Hospit a .3.147290 l .8 2021-08-14 2021-08-14 Office Colmenter, 1.2.840.1 [id number] 446 [id number] Methodi 11:00:00 13:05:34 Visit Linda 38077.1.[address] 3.430.2.7 Hospit a .3.597419 l .8 2021-08-12 2021-08-12 Office Prasanth, 1.2.840.1 [id number] 809635 0506 Methodi 10:00:00 11:08:57 Visit Eddie Franco 75226.1.[address] 3.430.2.7 Hospit a .3.944410 l .8 2021-08-12 2021-08-12 Travel 1.2.840.1 1.2.437.770 5913 627562 Methodi 00:00:00 00:00:[address] 3.430.2.7 0.2.7.3.698 Ho spita .3.362494 084.8 l .8 2021-08-08 2021-08-08 Emergency EM Lynda, HCAKW SHIRLENE [id number] [facility] 12:48:00 19:41:00 Di 70 [facility] 2021-08-08 2021-08-08 Emergency EM Lynda, HCAKW HCAKW [id number] [facility] 12:48:00 19:41:00 Di [id number] [facility] 2021-08-08 2021-08-08 Outpatient Lynda, HCAMAAME YOUSSEFO [id number] [facility] 19:09:00 19:09:00 Di 00 [facility] 2021-08-08 2021-08-08 Transcribe Istre, 1.2.840.1 [id number] 953 [id number] Methodi 00:00:00 00:00:00 Orders Shell 72874.1.[address] [place] 3.430.2.7 Hospi ta .3.920072 l .8 2021-08-06 2021-08-06 Emergency Myles Martin 1.2.840.1 [id number] Methodi 14:54:00 18:50:[address] 3.430.2.7 Hospit a .3.643735 l .8 2021-08-06 2021-08-06 Travel 1.2.840.1 1.2.829.176 9193 821534 Methodi 00:00:00 00:00:[address] 3.430.2.7 0.2.7.3.698 Ho spita .3.534157 084.8 l .8 2021-08-04 2021-08-04 Office Alicia, 1.2.840.1 [id number] 1765 Methodi 14:20:00 15:33:19 Visit Shell 06297.1.[address] [place] 3.430.2.7 Hospi ta .3.397862 l .8 2021-08-04 2021-08-04 Travel 1.2.840.1 1.2.533.479 6431 527273 Methodi 00:00:00 00:00:[address] 3.430.2.7 0.2.7.3.698 Ho spita .3.487943 084.8 l .8 2021-07-31 2021-07-31 Emergency Nelson Villagran 1.2.840.1 [id number] Methodi 21:39:00 23:28:[address] 3.430.2.7 Hospit a .3.453359 l .8 2021-07-31 2021-07-31 Travel 1.2.840.1 1.2.374.596 4056 922152 Methodi 00:00:00 00:00:[address] 3.430.2.7 0.2.7.3.698 Ho spita .3.604853 084.8 l .8 2021-07-30 2021-07-30 Emergency MarioMyles 1.2.840.1 [id number] Methodi 13:34:00 17:16:[address] 3.430.2.7 Hospit a .3.934950 l .8 2021-07-30 2021-07-30 Telephone Istre, 1.2.840.1 [id number] 2099 [id number] Methodi 00:00:00 00:00:[address] Doe 3.430.2.7 Hospi ta .3.182052 l .8 2021-07-28 2021-07-28 [facility] [id number] 879 [place] 00:00:00 00:00:[address] PEGGY [address] 2021-07-24 2021-07-24 Orders Lopez, 1.2.840.1 [id number] 60927 45454 Methodi 00:00:00 00:00:00 Only Maureen 02298.1.[address] 3.430.2.7 Hospit a .3.553104 l .8 2021-07-23 2021-07-23 Orders Istre, 1.2.840.1 [id number] 991704 4147 Methodi 00:00:00 00:00:00 Only Shell 72412.1.[address] [place] 3.430.2.7 Hospi ta .3.625308 l .8 2021-07-21 2021-07-21 Orders Istre, 1.2.840.1 382934003 296043 2313 Methodi 00:00:00 00:00:00 Only Shell 13428.1.[address] [place] 3.430.2.7 Hospi ta .3.775525 l .8 2021-07-15 2021-07-15 Telephone Leggett, 1.2.840.1 [id number] Methodi 00:00:00 00:00:[address] 3.430.2.7 Hospit a .3.652892 l .8 2021-07-15 2021-07-15 Travel 1.2.840.1 1.2.379.482 9281 010260 Methodi 00:00:00 00:00:[address] 3.430.2.7 0.2.7.3.698 Ho spita .3.495698 084.8 l .8 2021-07-10 2021-07-10 Treatment Istre, Shell Persaudrand 1.2.840.1 [id number] Methodi 09:00:00 10:00:00 Peggy Esparza 78034.1.[address] [place], [place] 3.430.2.7 H ospita .3.414989 l .8 2021-07-10 2021-07-10 Plan of 1.2.840.1 [id number] 959227 2171 Methodi 00:00:00 00:00:[address] Documentat 3.430.2.7 Hos margie ion .3.577708 l .8 2021-07-09 2021-07-09 Travel 1.2.840.1 1.2.089.015 4446 122100 Methodi 00:00:00 00:00:[address] 3.430.2.7 0.2.7.3.698 Ho spita .3.885860 084.8 l .8 2021-07-09 2021-07-09 Orders Istre, 1.2.840.1 975884183 583897 2455 Methodi 00:00:00 00:00:00 Only Shell 99847.1.[address] [place] 3.430.2.7 Hospi ta .3.759114 l .8 2021-07-03 2021-07-03 Travel 1.2.840.1 1.2.779.787 9489 133744 Methodi 00:00:00 00:00:[address] 3.430.2.7 0.2.7.3.698 Ho spita .3.641744 084.8 l .8 2021-06-30 2021-06-30 Emergency Tyshawn, Nelson 1.2.840.1 [id number] Methodi 14:43:00 20:06:[address] 3.430.2.7 Hospit a .3.775731 l .8 2021-06-19 2021-06-19 Orders Santy, 1.2.840.1 848446553 318620 4402 Methodi 00:00:00 00:00:00 Only Susanne 02084.1.[address] 3.430.2.7 Hospit a .3.846756 l .8 2021-06-18 2021-06-18 Orders Marc, 1.2.840.1 492864739 025330 2890 Methodi 00:00:00 00:00:00 Only Kortney 16489.1.[address] 3.430.2.7 Hospit a .3.403902 l .8 2021-06-18 2021-06-18 Telephone Jessica, 1.2.840.1 [id number] 698 [id number] Methodi 00:00:00 00:00:[address] 3.430.2.7 Hospit a .3.267750 l .8 2021-06-16 2021-06-16 Office Prasanth, 1.2.840.1 868975624 991508 6624 Methodi 11:40:00 13:03:55 Visit Eddie Franco 89983.1.[address] 3.430.2.7 Hospit a .3.822697 l .8 2021-06-16 2021-06-16 Travel 1.2.840.1 1.2.732.139 1269 865991 Methodi 00:00:00 00:00:[address] 3.430.2.7 0.2.7.3.698 Ho spita .3.897401 084.8 l .8 2021-06-03 2021-06-03 Refill Madera, 1.2.840.1 [id number] 408514 2918 Methodi 00:00:00 00:00:[address] 3.430.2.7 Hospit a .3.893262 l .8 2021-06-03 2021-06-03 Telephone Abreu, 1.2.840.1 [id number] 2099 279794 Methodi 00:00:00 00:00:[address] 3.430.2.7 Hospit a .3.729028 l .8 2021-06-02 2021-06-02 Emergency Gunnar, 1.2.840.1 213751177 2 [id number] Methodi 10:56:00 13:23:00 Mario Crook 80933.1.1 606 [address] t 3.430.2.7 Hospit a .3.572958 l .8 2021-06-02 2021-06-02 Orders Istre, 1.2.840.1 031138458 817041 4949 Methodi 00:00:00 00:00:00 Only Shell 68283.1.[address] [place] 3.430.2.7 Hospi ta .3.146200 l .8 2021-05-30 2021-05-30 Treatment ZacharyShell olivia 1.2.840.1 984687029 [id number] Methodi 10:00:00 11:00:00 Smooth [place] 99382.1.[address] 3.430.2.7 Hospit a .3.888975 l .8 2021-05-28 2021-05-28 Orders Istre, 1.2.840.1 359492940 968290 9680 Methodi 00:00:00 00:00:00 Only Shell 14918.1.[address] [place] 3.430.2.7 Hospi ta .3.915165 l .8 2021-05-27 2021-05-27 Travel 1.2.840.1 1.2.752.724 9034 388427 Methodi 00:00:00 00:00:[address] 3.430.2.7 0.2.7.3.698 Ho spita .3.408537 084.8 l .8 2021-05-19 2021-05-19 Evaluation Shell Vargas 1.2.840.1 [id number] Methodi 11:00:00 12:00:00 Peggy Esparza 68075.1.[address] [place], [place] 3.430.2.7 H ospita .3.010088 l .8 2021-05-19 2021-05-19 Plan of 1.2.840.1 141452313 327440 4770 Methodi 00:00:00 00:00:[address] Documentat 3.430.2.7 Hos margie ion .3.690722 l .8 2021-05-19 2021-05-19 Travel 1.2.840.1 1.2.007.123 7437 011085 Methodi 00:00:00 00:00:[address] 3.430.2.7 0.2.7.3.698 Ho spita .3.640119 084.8 l .8 2021-05-09 2021-05-09 Travel 1.2.840.1 1.2.362.153 1968 064162 Methodi 00:00:00 00:00:[address] 3.430.2.7 0.2.7.3.698 Ho spita .3.658952 084.8 l .8 2021-05-09 2021-05-09 [id number] 977 [place] 00:00:00 00:00:00 PEGGY [address] 2021-05-06 2021-05-06 Orders Istre, 1.2.840.1 776267080 291475 7142 Methodi 00:00:00 00:00:00 Only Shell 18669.1.[address] Doe 3.430.2.7 Hospi ta .3.302027 l .8 2021-05-05 2021-05-05 [facility] [id number] 738 [place] 00:00:00 00:00:00 PEGGY [address] 2021-05-04 2021-05-04 Emergency Oghogho, 1.2.840.1 [id number] 179 3971339 Methodi 14:39:00 18:56:[address] 3.430.2.7 Hospit a .3.193292 l .8 2021-05-04 2021-05-04 Travel 1.2.840.1 1.2.280.143 6755 932849 Methodi 00:00:00 00:00:[address] 3.430.2.7 0.2.7.3.698 Ho spita .3.803691 084.8 l .8 2021-05-02 2021-05-02 Outpatient ALLEGAN, [facility] [id number] [id number] [place] 00:00:00 00:00:00 [facility] 2021-04-30 2021-04-30 Travel 1.2.840.1 1.2.698.366 6968 289305 Methodi 00:00:00 00:00:[address] 3.430.2.7 0.2.7.3.698 Ho spita .3.943302 084.8 l .8 2021-04-28 2021-04-28 Orders Istre, 1.2.840.1 327338990 415883 2660 Methodi 00:00:00 00:00:00 Only Shell 05352.1.[address] [place] 3.430.2.7 Hospi ta .3.185710 l .8 2021-04-17 2021-04-17 Office Istre, 1.2.840.1 278361842 489482 2109 Methodi 15:00:00 15:00:06 Visit Shell 35789.1.[address] Doe 3.430.2.7 Hospi ta .3.129531 l .8 2021-04-16 2021-04-16 Travel 1.2.840.1 1.2.110.045 5382 195397 Methodi 00:00:00 00:00:[address] 3.430.2.7 0.2.7.3.698 Ho spita .3.885261 084.8 l .8 2021-04-12 2021-04-12 Emergency Svach, 1.2.840.1 144236783 2099 054347 Methodi 15:47:00 22:48:00 Shine R 56750.1.[address] 3.430.2.7 Hospit a .3.429513 l .8 2021-04-08 2021-04-08 Travel 1.2.840.1 1.2.198.599 5918 755368 Methodi 00:00:00 00:00:[address] 3.430.2.7 0.2.7.3.698 Ho spita .3.420754 084.8 l .8 2021-03-28 2021-03-28 Office Rj Khoury [facility] [id number] [place] 08:30:00 09:30:00 Visit [facility] 2021-03-28 2021-03-28 Outpatient JACKIE [facility] [id number] [place] 00:00:00 00:00:00 [facility] 2021-03-14 2021-03-14 Outpatient RADHA [facility] [id number] [place] 00:00:00 00:00:00 [facility] 2021-03-03 2021-03-03 Telephone Alicia, 1.2.840.1 [id number] 2100 [id number] Methodi 11:20:00 11:48:51 Consult Shell 12799.1.[address] [place] 3.430.2.7 Hospi ta .3.563795 l .8 2021-02-27 2021-02-27 Travel 1.2.840.1 1.2.115.198 8634 770550 Methodi 00:00:00 00:00:[address] 3.430.2.7 0.2.7.3.698 Ho spita .3.880170 084.8 l .8 2021-02-19 2021-02-19 Outpatient CARLY, [facility] 2100 [id number] [place] 00:00:00 00:00:00 PIMPRAPA 626 Metho di 2021-02-17 2021-02-17 Outpatient [facility] [id number] [place] 00:00:00 00:00:00 482 Method i 2021-02-17 2021-02-17 Outpatient STACI, [facility] [id number] 406 [place] 00:00:00 00:00:00 PROCTOR 706 Method i 2021-02-10 2021-02-10 Outpatient TAVARES, [facility] [id number] 790 [place] 00:00:00 00:00:00 PEGGY 856 Method i 2021-02-07 2021-02-07 Outpatient ALICIA [facility] [id number] [place] 00:00:00 00:00:00 SHELL 793 Method i 2021-01-30 2021-01-31 Outpatient IMELDA, [facility] 899 [id number] 174 [place] 00:00:00 00:00:00 KRISTY 451 Method i 2021-01-25 2021-01-25 Emergency CONSTANTIN KENA [facility] 064 [id number] [place] 00:00:00 00:00:00 190 Method i 2021-01-24 2021-01-24 Outpatient CARLY, [facility] 2100 [id number] [place] 00:00:00 00:00:00 PIMPRAPA 711 Metho di 2021-01-09 2021-01-09 Outpatient [facility] [id number] [place] 00:00:00 00:00:00 247 Method i 2020-12-29 2020-12-29 Emergency VASQUEZ, [facility] 064 [id number] 98 [place] 00:00:00 00:00:00 CRISTÓBAL [address] 2020-12-23 2020-12-23 Outpatient PRASANTH, [facility] [id number] [place] 00:00:00 00:00:00 EDDIE 305 Method i 2020-12-11 2020-12-11 Emergency VASQUEZ, [facility] 064 [id number] 96 [place] 00:00:00 00:00:00 CRISTÓBAL 030 Method i 2020-12-08 2020-12-08 Emergency TRISTAN, [facility] 064 [id number] 26 [place] 00:00:00 00:00:00 TRUNG 699 Method i 2020-11-25 2020-11-26 Office Doug Estevez [facility] Encounter/ Legacy 00:00:00 00:00:00 Visit Symone Moreau 0391 Communi [id number] [facility] 2020-11-25 2020-11-26 Office Doug Estevez [facility] Encounter/ Legacy 00:00:00 00:00:00 Visit Symone Moreau 3531 Communi [id number] [facility] 2020-11-18 2020-11-18 Outpatient STACI, [facility] [id number] [place] 00:00:00 00:00:00 PROCTOR 729 Method i 2020-11-02 2020-11-02 Emergency TERA, [facility] [id number] [place] 00:00:00 00:00:00 ROGER 241 Method i 2020-10-29 2020-10-29 Outpatient STACI, [facility] [id number] [place] 00:00:00 00:00:00 PROCTOR 983 Method i 2020-10-25 2020-10-25 Outpatient CARLY, [facility] [id number] [id number] [place] 00:00:00 00:00:00 PIMPRAPA 573 Metho di 2020-10-24 2020-10-24 Outpatient CARLY, [facility] [id number] [place] 00:00:00 00:00:00 PIMPRAPA 921 Metho di 2020-10-18 2020-10-19 Emergency HOPE, [facility] 064 [id number] [place] 00:00:00 00:00:00 TRUNG 724 Method i 2020-10-18 2020-10-18 Outpatient SMALL, [facility] [id number] [place] 00:00:00 00:00:00 PROCTOR 224 Method i 2020-10-11 2020-10-11 Emergency COURTNEY, [place] [address] [id number] [place] 00:00:00 00:00:00 TRUNG 080 Method i 2020-10-09 2020-10-09 Outpatient PRASANTH, [facility] [id number] [place] 00:00:00 00:00:00 EDDIE 020 Method i 2020-10-01 2020-10-01 Outpatient AHMED, [facility] [id number] [place] 00:00:00 00:00:00 MOHAMMAD 768 Metho di 2020-09-26 2020-09-26 Outpatient SMALL, [facility] [id number] [place] 00:00:00 00:00:00 PROCTOR 047 Method i 2020-09-13 2020-09-13 Outpatient PRASANTH, [facility] [id number] [place] 00:00:00 00:00:00 EDDIE 249 Method i 2020-09-11 2020-09-11 Outpatient VEJPONGSA, [facility] [id number] [place] 00:00:00 00:00:00 PIMPRAPA 754 Metho di 2020-08-23 2020-08-23 Outpatient AHMED, [facility] [id number] [place] 00:00:00 00:00:00 MOHAMMAD 132 Metho di 2020-08-19 2020-08-21 Outpatient MELTON, [facility] [id number] 265 [place] 00:00:00 00:00:00 TRUNG 187 Method i 2020-07-31 2020-08-01 Outpatient ARREDONDO, [facility] [id number] 975 [place] 00:00:00 00:00:00 RG 628 Met hodi 2020-07-16 2020-07-16 Emergency HOPE, [facility] [id number] [id number] [place] 00:00:00 00:00:00 TRUNG 600 Method i 2020-07-05 2020-07-05 Outpatient BROCK, [facility] [id number] [place] 00:00:00 00:00:00 [facility] 2020-07-05 2020-07-05 Emergency VASQUEZ, [facility] 064 [id number] [place] 00:00:00 00:00:00 CRISTÓBAL 088 Method i 2020-06-28 2020-06-28 Outpatient SMALL, [facility] [id number] [place] 00:00:00 00:00:00 PROCTOR 174 Method i 2020-06-27 2020-06-27 Outpatient PRASANTH, [facility] [id number] [place] 00:00:00 00:00:00 EDDIE 576 Method i 2020-06-24 2020-06-24 Outpatient ISTRE, [facility] [id number] [place] 00:00:00 00:00:00 SHELL 509 Method i 2020-06-19 2020-06-20 Emergency BUDDHISM, [place] [address] [id number] 53 [place] 00:00:00 00:00:00 NADIM 685 Method i 2020-06-11 2020-06-11 Outpatient SMALL, [facility] [id number] [place] 00:00:00 00:00:00 PROCTOR 214 Method i 2020-06-11 2020-06-11 Outpatient SMALL, [facility] [id number] [place] 00:00:00 00:00:00 PROCTOR 956 Method i 2020-06-06 2020-06-06 Outpatient ISTRE, [facility] [id number] [place] 00:00:00 00:00:00 SHELL 498 Method i 2020-06-03 2020-06-03 Outpatient ISTRE, [facility] [id number] [place] 00:00:00 00:00:00 SHELL 193 Method i 2020-06-03 2020-06-03 Outpatient ISTRE, [facility] [id number] 559 [place] 00:00:00 00:00:00 SHELL 363 Method i 2020-05-26 2020-05-27 Outpatient SMALL, [place] [id number] [place] 00:00:00 00:00:00 HAYLEE 766 Method i 2020-05-24 2020-05-24 Emergency JOSSY, [facility] 06 [id number] 24 [place] 00:00:00 00:00:00 BELKIS [address] 2020-05-23 2020-05-23 Emergency FORMAN, [facility] 064 [id number] 56 [place] 00:00:00 00:00:00 TANIA 926 Method i 2020 2020 Outpatient ISTRE, [facility] [id number] [place] 00:00:00 00:00:00 SHELL 882 Method i 2020 2020 Emergency KENDIG, [facility] 06 [id number] 65 [place] 00:00:00 00:00:00 KALIF 304 Method i 2020-05-20 2020-05-20 Outpatient ISTRE, [facility] [id number] [place] 00:00:00 00:00:00 SHELL 217 Method i 2020-05-13 2020-05-13 Outpatient MCFARLAN, [facility] [id number] 41 [place] 00:00:00 00:00:00 TRAJULIO CESAR Healt h 2020-05-11 2020-05-11 Emergency HOPE, [facility] 064 [id number] 87 [place] 00:00:00 00:00:00 TRUNG 164 Method i 2020-05-07 2020-05-07 Outpatient ROGER ZAPATA [facility] [id number] [place] 07:48:18 07:48:18 Health 2020-04-15 2020-04-15 Emergency KENA KILLIAN [facility] [id number] [place] 00:00:00 00:00:00 597 Method i 2020-04-01 2020-04-01 Emergency KENDTIM, [facility] 064 [id number] [place] 00:00:00 00:00:00 KALIF 631 Method i 2020-03-23 2020-03-24 Inpatient SEPTIMUS, [facility] [id number] [place] 00:00:00 00:00:00 STEPHY 252 Method i 2020-03-23 2020-03-23 Emergency HOPE, [facility] 064 [id number] 79 [place] 00:00:00 00:00:00 TRUNG [address] 2020-03-20 2020-03-20 Emergency [facility]ACIA [facility] 2100 [id number] [place] 00:00:00 00:00:[address] 2020-02-29 2020-03-01 Emergency DE CRANDALL, [place] [address] [id number] [place] 00:00:00 00:00:00 CHRISTCASSER [address] 2020-02-05 2020-02-06 Emergency MIKEYKY, [place] [address] [id number] [place] 00:00:00 00:00:00 KEM [address] 2020-02-03 2020-02-03 Emergency DE CRANDALL, [place] [address] [id number] [place] 00:00:00 00:00:00 EMY 451 Me thodi 2019-12-20 2019-12-21 Emergency ENE, [place] [address] [id number] [place] 00:00:00 00:00:00 KEM [address] 2019-12-14 2019-12-14 Emergency KI, [place] [address] [id number] [place] 00:00:00 00:00:00 KALIF [address] 2019-12-11 2019-12-11 Emergency HOPE, [place] [address] [id number] 68 [place] 00:00:00 00:00:00 TRUNG [address] 2019-12-08 2019-12-08 Emergency SUSHIL, [facility] 082 [id number] [place] 00:00:00 00:00:00 ISAC [address] 2019-11-24 2019-11-24 Outpatient ROGER ZAPATA [facility] [id number] [place] 00:00:00 00:00:00 Health 2019-11-21 2019-11-21 Emergency TYSHAWNNELSON BATES [facility] 064 [id number] [place] 00:00:00 00:00:[address] 2019-11-14 2019-11-14 Outpatient ROGER ZAPATA [facility] [id number] [place] 06:55:06 06:55:06 Health 2019-11-13 2019-11-13 Outpatient [facility] [id number] [place] 00:00:00 00:00:00 Health 2019-11-10 2019-11-11 Emergency HOPE, [place] [address] [id number] [place] 00:00:00 00:00:00 TRUNG [address] 2019-11-07 2019-11-07 Outpatient [facility] [id number] [place] 14:24:03 14:24:03 2019-11-07 2019-11-07 Outpatient [facility] [id number] [place] 12:22:44 12:22:44 2019-11-07 2019-11-07 Outpatient [facility] [id number] [place] 00:00:00 00:00:00 2019-11-07 2019-11-07 Outpatient [facility] [id number] [place] 00:00:00 00:00:00 2019-10-30 2019-10-30 Outpatient [facility] [id number] [place] 11:49:58 11:49:58 Health 2019-10-30 2019-10-30 Outpatient [facility] [id number] [place] 00:00:00 00:00:00 2019-10-12 2019-10-12 Outpatient [facility] [id number] [place] 00:00:00 00:00:00 2019-10-10 2019-10-10 Outpatient [facility] [id number] [place] 08:15:33 08:15:33 2019-10-09 2019-10-09 Outpatient [facility] [id number] [place] 00:00:00 00:00:00 2019-09-25 2019-09-25 Outpatient [facility] [id number] [place] 00:00:00 00:00:00 2019-09-19 2019-09-19 Outpatient [facility] [id number] [place] 15:17:15 15:17:15 Health 2019-09-12 2019-09-12 Outpatient [facility] [id number] [place] 09:33:27 09:33:27 Health 2019-09-12 2019-09-12 Outpatient [facility] [id number] [place] 08:35:47 08:35:47 Health 2019-09-12 2019-09-12 Outpatient [facility] [id number] [place] 00:00:00 00:00:00 2019-09-09 2019-09-09 Emergency HPOE, [facility] 064 [id number] 57 [place] 00:00:00 00:00:00 TRUNG [address] 2019-08-25 2019-08-25 Outpatient [facility] [id number] [place] 06:54:32 06:54:32 Health 2019-08-24 2019-08-24 Outpatient [facility] [id number] [place] 00:00:00 00:00:00 Health 2019-08-23 2019-08-23 Outpatient [facility] [id number] [place] 00:00:00 00:00:00 Health 2019-08-05 2019-08-05 Emergency [facility] [id number] [place] 00:00:00 00:00:00 OTILIO, [address] 2019-08-03 2019-08-03 Emergency BARRON HARDIN [place] [address] [id number] [id number] [place] 00:00:00 00:00:[address] 2019-07-24 2019-07-24 Outpatient [facility] [id number] [place] 08:35:14 08:35:14 Health 2019-06-21 2019-06-21 Outpatient [facility] [id number] [place] 00:00:00 00:00:00 Health 2019-06-15 2019-06-16 Emergency [facility] [id number] [place] 00:00:00 00:00:00 TR[facility] 2019-06-15 2019-06-15 Emergency [facility] [id number] [place] 14:03:00 14:03:00 Health 2019-06-14 2019-06-14 Outpatient [facility] [id number] [place] 00:00:00 00:00:00 Health 2019-06-08 2019-06-08 Outpatient [facility] [id number] [place] 13:49:26 13:49:26 Health 2019-06-08 2019-06-08 Outpatient [facility] [id number] [place] 13:11:00 13:11:00 Health 2019-06-08 2019-06-08 Outpatient [facility] [id number] [place] 00:00:00 00:00:00 Health 2019-06-07 2019-06-07 Emergency [facility] [id number] [place] 12:06:12 12:06:12 Health 2019-06-07 2019-06-07 Emergency [facility] [id number] [place] 10:57:48 10:57:48 Health 2019-03-15 2019-03-15 Outpatient [facility] [id number] [place] 14:00:36 14:00:36 Health 2019-03-15 2019-03-15 Outpatient [facility] [id number] [place] 12:20:09 12:20:09 Health 2019-03-15 2019-03-15 Outpatient [facility] [id number] [place] 00:00:00 00:00:00 [facility] 2019-01-25 2019-01-25 Outpatient [facility] [id number] [place] 10:20:47 10:20:47 [facility] 2019-01-13 2019-01-13 Outpatient [facility] [id number] [place] 10:25:55 10:25:55 [facility] 2019-01-03 2019-01-03 Outpatient [facility] [id number] [place] 10:33:43 10:33:43 [facility] 2019-01-03 2019-01-03 Outpatient [facility] [id number] [place] 08:40:50 08:40:50 [facility] 2019-01-03 2019-01-03 Outpatient [facility] [id number] [place] 07:58:31 07:58:31 [facility] 2019-01-03 2019-01-03 Outpatient [facility] [id number] [place] 00:00:00 00:00:00 [facility] 2018-12-29 2018-12-29 Outpatient [facility] [id number] [place] 00:00:00 00:00:00 [facility] 2018-12-27 2018-12-27 Outpatient [facility] [id number] [place] 00:00:00 00:00:00 [facility] 2018-12-26 2018-12-26 Outpatient [facility] [id number] [place] 16:37:58 16:37:58 [facility] 2018-12-09 2018-12-09 Outpatient [facility] [id number] [place] 16:51:56 16:51:56 [facility] 2018-12-09 2018-12-09 Outpatient [facility] [id number] [place] 14:15:31 14:15:31 [facility] 2018-12-09 2018-12-09 Outpatient [facility] [id number] [place] 00:00:00 00:00:00 [facility] 2018-11-26 2018-11-26 Emergency [facility] [id number] [place] 16:08:40 16:08:40 [facility] 2018-01-17 2018-01-17 Outpatient E [facility] [id number] [place] 10:49:00 12:30:00 [facility] 2017-12-28 2017-12-28 Outpatient E [facility] [id number] [place] 10:12:00 12:25:00 PAUL [facility] 2017-12-20 2017-12-20 Outpatient E MYRNA [facility] [id number] [place] 23:13:00 23:50:00 [facility] 2017-10-15 2017-10-15 Outpatient [facility] [id number] [facility] 09:57:00 11:15:00 [facility] Results Test Description Test Time Test Comments Results Result Comments Source ECG 12 lead 2022-03-24 04:27:49 Test Item Value Reference Range Interpretation Comme nts Ventricular rate (test code = 253) Atrial rate (test code = 255) MT interval (test code = 266) QRSD interval [...] of 28-NOV-2021 10:26,-No significant change was found- [address]2022-12-13 04:27:49 Test Item Value Reference Range Interpretation Comments Ventricular rate (test code = 253) Atrial rate (test code = 255) MT interval (test code = 266) QRSD interval [...] of 28-NOV-2021 10:26,-No significant change was found- [address]2022-12-13 04:27:49 Test Item Value Reference Range Interpretation Comments Ventricular rate (test code = 253) Atrial rate (test code = 255) MT interval (test code = 266) QRSD interval [...] of 28-NOV-2021 10:26,-No significant change was found- 06 [place] [address]2022-12-13 04:27:49 Test Item Value Reference Range Interpretation Comments Ventricular rate (test 71 code = 253) Atrial rate (test code 71 = 255) MT interval (test code 124 = 266) QRSD [...] of 28-NOV-2021 10:26,-No significant change was found- [address]2022-12-13 04:27:49 Test Item Value Reference Range Interpretation Comments Ventricular rate (test 71 code = 253) Atrial rate (test code 71 = 255) MT interval (test code 124 = 266) QRSD [...] of 28-NOV-2021 10:26,-No significant change was found- [address]2022-12-13 04:27:49 Test Item Value Reference Range Interpretation Comments Ventricular rate (test 71 code = 253) Atrial rate (test code 71 = 255) MT interval (test code 124 = 266) QRSD [...] of 28-NOV-2021 10:26,-No significant change was found- [address]2022-12-13 04:27:49 Test Item Value Reference Range Interpretation Comments Ventricular rate (test 71 code = 253) Atrial rate (test code 71 = 255) MT interval (test code 124 = 266) QRSD [...] of 28-NOV-2021 10:26,-No significant change was found- [address]2022-12-13 04:27:49 Test Item Value Reference Range Interpretation Comments Ventricular rate (test 71 code = 253) Atrial rate (test code 71 = 255) MT interval (test code 124 = 266) QRSD [...] of 28-NOV-2021 10:26,-No significant change was found- [address]2022-12-13 04:27:49 Test Item Value Reference Range Interpretation Comments Ventricular rate (test 71 code = 253) Atrial rate (test code 71 = 255) MT interval (test code 124 = 266) QRSD [...] of 28-NOV-2021 10:26,-No significant change was found- [address]2022-12-13 04:27:49 Test Item Value Reference Range Interpretation Comments Ventricular rate (test 71 code = 253) Atrial rate (test code 71 = 255) MT interval (test code 124 = 266) QRSD [...] of 28-NOV-2021 10:26,-No significant change was found- [address]2022-12-13 04:27:49 Test Item Value Reference Range Interpretation Comments Ventricular rate (test 71 code = 253) Atrial rate (test code 71 = 255) MT interval (test code 124 = 266) QRSD [...] of 28-NOV-2021 10:26,-No significant change was found- [address]2022-12-13 04:27:49 Test Item Value Reference Range Interpretation Comments Ventricular rate (test 71 code = 253) Atrial rate (test code 71 = 255) MT interval (test code 124 = 266) QRSD [...] of 28-NOV-2021 10:26,-No significant change was found- [address]2022-12-13 04:27:49 Test Item Value Reference Range Interpretation Comments Ventricular rate (test 71 code = 253) Atrial rate (test code 71 = 255) MT interval (test code 124 = 266) QRSD [...] of 28-NOV-2021 10:26,-No significant change was found- [address]2022-12-13 04:27:49 Test Item Value Reference Range Interpretation Comments Ventricular rate (test 71 code = 253) Atrial rate (test code 71 = 255) MT interval (test code 124 = 266) QRSD [...] of 28-NOV-2021 10:26,-No significant change was found- [place] [address] [id number] 04:27:49 Test Item Value Reference Range Interpretation Comments Ventricular rate (test 71 code = 253) Atrial rate (test code 71 = 255) MT interval (test code 124 = 266) QRSD [...] SEE COMMENT Bacteriu brandon screen code = 7134487) negative. [facility]2022-11-10 23:39:00 Test Item Value Reference Range Interpretation Comments Urine culture (test SEE COMMENT Bacteriu brandon screen code = 3915873) negative. [facility]2022-11-10 23:39:00 Test Item Value Reference Range Interpretation Comments Urine culture (test SEE COMMENT Bacteriu brandon screen code = 9916418) negative. [facility]2022-11-10 23:39:00 Test Item Value Reference Range Interpretation Comments Urine culture (test SEE COMMENT Bacteriu brandon screen code = 6688594) negative. [facility]2022-11-10 23:39:00 Test Item Value Reference Range Interpretation Comments Urine culture (test SEE COMMENT Bacteriu brandon screen code = 6363990) negative. [facility]2022-11-10 23:39:00 Test Item Value Reference Range Interpretation Comments Urine culture (test SEE COMMENT Bacteriu brandon screen code = 2866179) negative. [facility]2022-11-10 23:39:00 Test Item Value Reference Range Interpretation Comments Urine culture (test SEE COMMENT Bacteriu brandon screen code = 2329670) negative. [facility]2022-11-10 23:39:00 Test Item Value Reference Range Interpretation Comments Urine culture (test SEE COMMENT Bacteriu brandon screen code = 9147557) negative. [facility]2022-11-10 23:39:00 Test Item Value Reference Range Interpretation Comments Urine culture (test SEE COMMENT Bacteriu brandon screen code = 3064035) negative. [facility]2022-11-10 23:39:00 Test Item Value Reference Range Interpretation Comments Urine culture (test SEE COMMENT Bacteriu brandon screen code = 5935569) negative. [facility]2022-11-10 23:39:00 Test Item Value Reference Range Interpretation Comments Urine culture (test SEE COMMENT Bacteriu brandon screen code = 4502686) negative. [address]11-10 23:39:00 Test Item Value Reference Range Interpretation Comments Urine culture (test SEE COMMENT Bacteriu brandon screen code = 5118051) negative. [address]11-10 23:39:00 Test Item Value Reference Range Interpretation Comments Urine culture (test SEE COMMENT Bacteriu brandon screen code = 9384199) negative. [facility]2022-11-10 23:39:00 Test Item Value Reference Range Interpretation Comments Urine culture (test SEE COMMENT Bacteriu brandon screen code = 6378843) negative. [facility]2022-11-10 23:39:00 Test Item Value Reference Range Interpretation Comments Urine culture (test SEE COMMENT Bacteriu brandon screen code = 6925038) negative. [place] [id number] 23:39:00 Test Item Value Reference Range Interpretation Comments Urine culture (test SEE COMMENT Bacteriu brandon screen code = 7122830) negative. [facility]2022-11-10 23:39:00 Test Item Value Reference Range Interpretation Comments Urine culture (test SEE COMMENT Bacteriu brandon screen code = 9487624) negative. [facility]2022-11-10 23:39:00 Test Item Value Reference Range Interpretation Comments Urine culture (test SEE COMMENT Bacteriu brandon screen code = 1811854) [facility] [id number] 22:17:00 Test Item Value Reference Range Interpretation Comments Hepatitis B surface NON-REACTIVE NON-REACTIVE Ag (test code = 5196-1) RAC (test code = RAC) Performing Organization Information: Site ID: RGA [facility]: [facility] Address: [address] [place] [phone] Director: Rajinder Grant [facility] CampusRP with reflex to [id number] 22:17:00 Test Item Value Reference Range Interpretation Comments RPR (test code = NON-REACTIVE NON-REACTIVE 40797-9) RAC (test code = Performing Organization RAC) Information: Site ID: RGA [facility]: [facility] Address: [address] [place] [phone] Director: Rajinder Grant [facility] C virus (HCV), quantitative [id number] 22:17:00 Test Item Value Reference Interpretation Comments Range HCV RNA, <15 NOT DETECTED NOT DETECTED quantitative PCR IU/mL (test code = 25593-1) HCV viral log <1.18 NOT DETECTED NOT DETECTED This bhupendra t was (test code = Log IU/mL performed using 74684-4) Real-Time Polym erase ChainReaction. Reportable Rang e: 15 IU/mL to 100,00 0,000 IU/mL(1.18 Log IU/mL to 8.00 Log IU/ mL). The analytical performance characteristics of thisassay have been determined by [employer]. Th e modifications h ave not been cleare d or approved bythe FDA. This assay has been validated pursu ant to the CLIA regulations and is used for clinic al purposes. For m ore information on this test, go to:http://educa tion. Bullhorn /faq/WEF37c2(Th is link is being provided for informational/e ducat ional purposes only.) RAC (test code = Performing RAC) Organization Information: Site ID: IG [facility]: [facility] Address: [address] [place] [address] Director: Dr. Rajinder rGant [facility] C [id number] 22:17:00 Test Item Value Reference Interpretation Comments Range Hepatitis C Ab (test REACTIVE NON-REACTIVE A code = 28143-6) Signal/cutoff (test >11.00 See_Comment H Based o n this code = 80008-8) result, the sample will be testedf or [...] RAC) Organization Information: Site ID: RGA Name: [facility] Address: [address] [place] [phone] Director: Rajinder Grant Lab Interpretation Abnormal (test code = 80344-8) [facility] CampusHSV type 1/2 combined Ab, [id number] 22:17:00 Test Item Value Reference Interpretation Comments Range HSV 1 IgM NEGATIVE (test code = 98745-3) HSV 2 IgM NEGATIVE REFERENCE RANG E: NEGATIVE HSV (test IgM is detectab le in serum code = from >90% of [facility] 53463-3) primary HSV inf ection. However, HSV Ig [...] performancechar acteristics have been deter mined by [employer].It has not been cleared or appr luis by FDA. This assay hasb een validated pursuant to the CLIA regulations and isused for clinical purpos es. RAC (test Performing code = Organization RAC) Information: Site ID: EZ Name: [employer], Address: [address] [place] [phone] Director: Crista Camacho MD,PhD,BARI [facility] CampusHIV 1/2 antigen/antibody, fourth generation, with reflexes 2022-02-11 22:17:00 Test Item Value Reference Range Interpretation Comments HIV NON-REACTIVE NON-REACTIVE HIV-1 antigen a nd antigen/ant HIV-1/HIV-2 ant ibodies ibody 4th were notdetecte d. There gen (test is no laborator y evidence code = of HIVinfection . PLEASE 10858-7) NOTE: This info rmation has been disclo [...] ad ditional information ple ase refer tohttp://educat ion.Mebelrama/ faq/KDS227 (This link is b eing provided for informational/e ducational purposes only.) The performance of this assay has not been clinicallyvalid ated in patients less t lagunas 2 years old. RAC (test Performing code = RAC) Organization Information: Site ID: RGA Name: [facility] Address: [address] [place] [phone] Director: Rajinder Grant [facility] CampusHSV 1 and 2 specific Ab [id number] 22:17:00 Test Item Value Reference Interpretation Comments [...] been establishedfor pediatric populations, immunocompromis ed patients,or oamr lily screening. For additional information, pl ease refer to http://educatio n.Tri tDiagnostics.co m/faq/ APY029 (This li nk is being provided for informational/e ducati onal purposes o nly.) RAC (test code = Performing RAC) Organization Information: Site ID: IG Name: [facility] Address: [address] [place] [address] Director: Dr. Rajinder Grant Lab Interpretation Abnormal (test code = 92164-1) [facility] B surface [id number] 22:17:00 Test Item Value Reference Range Interpretation Comments Hepatitis B surface NON-REACTIVE NON-REACTIVE Ag (test code = 5196-1) RAC (test code = RAC) Performing Organization Information: Site ID: RGA Name: [facility] Address: [address] [place] [address] Director: Rajinder Grant [facility] CampusRPR with reflex to [id number] 22:17:00 Test Item Value Reference Range Interpretation Comments RPR (test code = NON-REACTIVE NON-REACTIVE 53692-2) RAC (test code = Performing Organization RAC) Information: Site ID: RGA Name: [facility] Address: [address] [place] [phone] Director: Rajinder Grant [facility] C virus (HCV), quantitative [id number] 22:17:00 Test Item Value Reference Interpretation Comments Range HCV RNA, <15 NOT DETECTED NOT DETECTED quantitative PCR IU/mL (test code = 89672-3) HCV viral log <1.18 NOT DETECTED NOT DETECTED This bhupendra t was (test code = Log IU/mL performed using 16837-8) Real-Time Polym erase ChainReaction. Reportable Rang e: 15 IU/mL to 100,00 0,000 IU/mL(1.18 Log IU/mL to 8.00 Log IU/ mL). The analytical performance characteristics of thisassay have been determined by [employer]. Th e modifications h ave not been cleare d or approved bythe FDA. This assay has been validated pursu ant to the CLIA regulations and is used for clinic al purposes. For m ore information on this test, go to:http://educa tion. Bullhorn /faq/YIA23w0(Th is link is being provided for informational/e ducat ional purposes only.) RAC (test code = Performing RAC) Organization Information: Site ID: IG Name: [facility] Address: [address] [place] [address] Director: Dr. Rajinder Grant [facility] CampusHepatitis C [id number] 22:17:00 Test Item Value Reference Interpretation Comments Range Hepatitis C Ab (test REACTIVE NON-REACTIVE A code = 61643-9) Signal/cutoff (test >11.00 See_Comment H Based o n this code = 63779-8) result, the sample will be testedf or [...] RAC) Organization Information: Site ID: RGA [facility]: [facility] Lab Address: [address] [place] [address] Director: Rajinder Grant Lab Interpretation Abnormal (test code = 65480-6) [facility], [id number] 22:17:00 Test Item Value Reference Interpretation Comments Range HSV 1 IgM NEGATIVE (test code = 70198-9) HSV 2 IgM NEGATIVE REFERENCE RANG E: NEGATIVE HSV (test IgM is detectab le in serum code = from >90% of [facility] [address]-7) primary HSV inf ection. However, HSV Ig [...] performancechar acteristics have been deter mined by [employer].It has not been cleared or appr luis by FDA. This assay hasb een validated pursuant to the CLIA regulations and isused for clinical purpos es. RAC (test Performing code = Organization RAC) Information: Site ID: EZ Name: [facility], Address: [address] [place] [phone] Director: Crista Camacho MD,PhD,BARI [facility] CampusHIV 1/2 antigen/antibody, fourth generation, with reflexes 2022-02-11 22:17:00 Test Item Value Reference Range Interpretation Comments HIV NON-REACTIVE NON-REACTIVE HIV-1 antigen a nd antigen/ant HIV-1/HIV-2 ant ibodies ibody 4th were notdetecte d. There gen (test is no laborator y evidence code = of HIVinfection . PLEASE 51879-9) NOTE: This info rmation has been disclo [...] ad ditional information ple ase refer tohttp://educat ion.AeternusLED.Intigua/ faq/LNZ909 (This link is b eing provided for informational/e ducational purposes only.) The performance of this assay has not been clinicallyvalid ated in patients less t lagunas 2 years old. RAC (test Performing code = RAC) Organization Information: Site ID: RGA Name: [facility] Address: [address] [place] [address] Director: Rajinder Grant [facility] CampusHSV 1 and 2 specific Ab [id number] 22:17:00 Test Item Value Reference Interpretation Comments [...] ease refer to http://educatio n.Ques tDiagnostics.co m/faq/ UPA383 (This li nk is being provided for informational/e ducati onal purposes o nly.) RAC (test code = Performing RAC) Organization Information: Site ID: IG Name: [facility] Address: [address] [place] [phone] Director: Dr. Rajinder Grant Lab Interpretation Abnormal (test code = 94486-7) [facility] [id number] 22:17:00 Test Item Value Reference Range Interpretation Comments Hepatitis B surface NON-REACTIVE NON-REACTIVE Ag (test code = 5196-1) RAC (test code = RAC) Performing Organization Information: Site ID: RGA Name: [facility] Address: [address] [place] [address] Director: Rajinder Grant [facility] CampusRPR with reflex to [id number] 22:17:00 Test Item Value Reference Range Interpretation Comments RPR (test code = NON-REACTIVE NON-REACTIVE 73314-3) RAC (test code = Performing Organization RAC) Information: Site ID: RGA Name: [facility] Address: [address] [place] [phone] Director: Rajinder Grant [facility] C virus (HCV), quantitative [id number] 22:17:00 Test Item Value Reference Interpretation Comments Range HCV RNA, <15 NOT DETECTED NOT DETECTED quantitative PCR IU/mL (test code = 93721-4) HCV viral log <1.18 NOT DETECTED NOT DETECTED This bhupendra t was (test code = Log IU/mL performed using 12935-9) Real-Time Polym erase ChainReaction. Reportable Rang e: 15 IU/mL to 100,00 0,000 IU/mL(1.18 Log IU/mL to 8.00 Log IU/ mL). The analytical performance characteristics of thisassay have been determined by [employer]. Th e modifications h ave not been cleare d or approved bythe FDA. This assay has been validated pursu ant to the CLIA regulations and is used for clinic al purposes. For m ore information on this test, go to:http://AmpliMed Corporationa Ohmconnecton. Bullhorn /faq/BOK05d2(Th is link is being provided for informational/e ducat ional purposes only.) RAC (test code = Performing RAC) Organization Information: Site ID: IG Name: [facility] Address: [address] [place] [address] Director: Dr. Rajinder Grant [facility] CampusHepatitis C [id number] 22:17:00 Test Item Value Reference Interpretation Comments Range Hepatitis C Ab (test REACTIVE NON-REACTIVE A code = 87221-8) Signal/cutoff (test >11.00 See_Comment H Based o n this code = 02213-3) result, the sample will be testedf or [...] RAC) Organization Information: Site ID: RGA Name: [facility] Address: [address] [place] [address] Director: Rajinder Grant Lab Interpretation Abnormal (test code = 91739-5) [facility] CampusHSV type 1/2 combined Ab, [id number] 22:17:00 Test Item Value Reference Interpretation Comments Range HSV 1 IgM NEGATIVE (test code = 07363-8) HSV 2 IgM NEGATIVE REFERENCE RANG E: NEGATIVE HSV (test IgM is detectab le in serum code = from >90% of [place] 55720-2) primary HSV inf ection. However, HSV Ig [...] performancechar acteristics have been deter mined by [employer].It has not been cleared or appr luis by FDA. This assay hasb een validated pursuant to the CLIA regulations and isused for clinical purpos es. RAC (test Performing code = Organization RAC) Information: Site ID: EZ Name: [employer], Address: [address] [place] [phone] Director: Crista Camacho MD,PhD,BARI [facility] RehabilitationHIV 1/2 antigen/antibody, fourth generation, with reflexes 2022-02-11 22:17:00 Test Item Value Reference Range Interpretation Comments HIV NON-REACTIVE NON-REACTIVE HIV-1 antigen a nd antigen/ant HIV-1/HIV-2 ant ibodies ibody 4th were notdetecte d. There gen (test is no laborator y evidence code = of HIVinfection . PLEASE 68743-7) NOTE: This info rmation has been disclo [...] ad ditional information ple ase refer tohttp://educat ion.Mebelrama/ faq/KHH149 (This link is b eing provided for informational/e ducational purposes only.) The performance of this assay has not been clinicallyvalid ated in patients less t lagunas 2 years old. RAC (test Performing code = RAC) Organization Information: Site ID: BEBA Name: [facility] Address: [address] [place] [phone] Director: Rajinder Grant [facility] CampusHSV 1 and 2 specific Ab [id number] 22:17:00 Test Item Value Reference Interpretation Comments [...] ease refer to http://educatio n.Tri tDiagnostics.co m/faq/ GVL306 (This li nk is being provided for informational/e ducati onal purposes o nly.) RAC (test code = Performing RAC) Organization Information: Site ID: IG Name: [facility] Address: [address] [place] [address] Director: Dr. Rajinder Grant Lab Interpretation Abnormal (test code = 64433-4) [facility] CampusHepatitis B surface [id number] 22:17:00 Test Item Value Reference Range Interpretation Comments Hepatitis B surface NON-REACTIVE NON-REACTIVE Ag (test code = 5196-1) RAC (test code = RAC) Performing Organization Information: Site ID: RGA Name: [facility] Address: [address] [place] [phone] Director: Rajinder Grant [facility] with reflex to [id number] 22:17:00 Test Item Value Reference Range Interpretation Comments RPR (test code = NON-REACTIVE NON-REACTIVE 56051-6) RAC (test code = Performing Organization RAC) Information: Site ID: RGA Name: [facility] Address: [address] [place] [address] Director: Rajinder Grant [facility] C virus (HCV), quantitative [id number] 22:17:00 Test Item Value Reference Interpretation Comments Range HCV RNA, <15 NOT DETECTED NOT DETECTED quantitative PCR IU/mL (test code = 93215-2) HCV viral log <1.18 NOT DETECTED NOT DETECTED This bhupendra t was (test code = Log IU/mL performed using 95637-8) Real-Time Polym erase ChainReaction. Reportable Rang e: 15 IU/mL to 100,00 0,000 IU/mL(1.18 Log IU/mL to 8.00 Log IU/ mL). The analytical performance characteristics of thisassay have been determined by [employer]. Th e modifications h ave not been cleare d or approved bythe FDA. This assay has been validated pursu ant to the CLIA regulations and is used for clinic al purposes. For m ore information on this test, go to:http://educa tion. Krim[employer] Technologies.Intigua /faq/EOP62j7(Th is link is being provided for informational/e ducat ional purposes only.) RAC (test code = Performing RAC) Organization Information: Site ID: IG Name: [facility] Address: [address] [place] [address] Director: Dr. Rajinder Grant [facility] C [id number] 22:17:00 Test Item Value Reference Interpretation Comments Range Hepatitis C Ab (test REACTIVE NON-REACTIVE A code = 45617-9) Signal/cutoff (test >11.00 See_Comment H Based o n this code = 01615-7) result, the sample will be testedf or [...] RAC) Organization Information: Site ID: RGA Name: [employer] [facility] Address: [address] [place] [address] Director: Rajinder Grant Lab Interpretation Abnormal (test code = 80351-1) [facility] RehabilitationHSV type 1/2 combined Ab, [id number] 22:17:00 Test Item Value Reference Interpretation Comments Range HSV 1 IgM NEGATIVE (test code = 55824-8) HSV 2 IgM NEGATIVE REFERENCE RANG E: NEGATIVE HSV (test IgM is detectab le in serum code = from >90% of [facility] [address]-7) primary HSV inf ection. However, HSV Ig [...] performancechar acteristics have been deter mined by [employer].It has not been cleared or appr luis by FDA. This assay hasb een validated pursuant to the CLIA regulations and isused for clinical purpos es. RAC (test Performing code = Organization RAC) Information: Site ID: EZ Name: [employer], Address: [address] [place] [phone] Director: Crista Camacho MD,PhD,BARI [facility] CampusHIV 1/2 antigen/antibody, fourth generation, with reflexes 2022-02-11 22:17:00 Test Item Value Reference Range Interpretation Comments HIV NON-REACTIVE NON-REACTIVE HIV-1 antigen a nd antigen/ant HIV-1/HIV-2 ant ibodies ibody 4th were notdetecte d. There gen (test is no laborator y evidence code = of HIVinfection . PLEASE 66938-5) NOTE: This info rmation has been disclo [...] ad ditional information ple ase refer tohttp://educat ion.Mebelrama/ faq/ESL433 (This link is b eing provided for informational/e ducational purposes only.) The performance of this assay has not been clinicallyvalid ated in patients less t lagunas 2 years old. RAC (test Performing code = RAC) Organization Information: Site ID: RGA [facility]: [facility] Address: [address] [place] [address] Director: Rajinder Grant [facility] CampusHSV 1 and 2 specific Ab [id number] 22:17:00 Test Item Value Reference Interpretation Comments [...] additional information, pl ease refer to http://educatio nHana Biosciences.Intigua /faq/FA Q118 (This link is being provided for informational/e ducatio nal purposes on ly.) RAC (test code = Performing RAC) Organization Information: Site ID: IG [facility]: [facility] Address: [address] [place] [address] Director: Dr. Rajinder Grant Lab Interpretation Abnormal (test code = 91185-7) [facility] B surface [id number] 22:17:00 Test Item Value Reference Range Interpretation Comments Hepatitis B surface NON-REACTIVE NON-REACTIVE Ag (test code = 5196-1) RAC (test code = RAC) Performing Organization Information: Site ID: RGA Name: [facility] Address: [address] [place] [address] Director: Rajinder Grant [facility] CampusRP with reflex to [id number] 22:17:00 Test Item Value Reference Range Interpretation Comments RPR (test code = NON-REACTIVE NON-REACTIVE 05070-9) RAC (test code = Performing Organization RAC) Information: Site ID: RGA [facility] Address: [address] [place] [address] Director: Rajinder Grant [facility] C virus (HCV), quantitative [id number] 22:17:00 Test Item Value Reference Interpretation Comments Range HCV RNA, <15 NOT DETECTED NOT DETECTED quantitative PCR IU/mL (test code = 36848-9) HCV viral log <1.18 NOT DETECTED NOT DETECTED This bhupendra t was (test code = Log IU/mL performed using 03581-1) Real-Time Polym erase ChainReaction. Reportable Rang e: 15 IU/mL to 100,00 0,000 IU/mL(1.18 Log IU/mL to 8.00 Log IU/ mL). The analytical performance characteristics of thisassay have been determined by [employer]. Th e modifications h ave not been cleare d or approved bythe FDA. This assay has been validated pursu ant to the CLIA regulations and is used for clinic al purposes. For m ore information on this test, go to:http://educa tion. Bullhorn /faq/OVG38t3(Th is link is being provided for informational/e ducat ional purposes only.) RAC (test code = Performing RAC) Organization Information: Site ID: IG [facility]: [facility] Address: [address] [place] [address] Director: Dr. Rajinder Grant [facility] CampusHepatitis C [id number] 22:17:00 Test Item Value Reference Interpretation Comments Range Hepatitis C Ab (test REACTIVE NON-REACTIVE A code = 61510-8) Signal/cutoff (test >11.00 See_Comment H Based o n this code = 03858-4) result, the sample will be testedf or [...] RAC) Organization Information: Site ID: RGA Name: [facility] Address: [address] [place] [address] Director: Rajinder Grant Lab Interpretation Abnormal (test code = 31255-9) [facility], [id number] 22:17:00 Test Item Value Reference Interpretation Comments Range HSV 1 IgM NEGATIVE (test code = 38754-9) HSV 2 IgM NEGATIVE REFERENCE RANG E: NEGATIVE HSV (test IgM is detectab le in serum code = from >90% of [facility] [address]-6) primary HSV inf ection. However, HSV Ig [...] performancechar acteristics have been deter mined by [employer].It has not been cleared or appr luis by FDA. This assay hasb een validated pursuant to the CLIA regulations and isused for clinical purpos es. RAC (test Performing code = Organization RAC) Information: Site ID: EZ Name: [employer], Address: [address] [place] [address] Director: Crista Camacho MD,PhD,BARI [facility] CampusHIV 1/2 antigen/antibody, fourth generation, with reflexes 2022-02-11 22:17:00 Test Item Value Reference Range Interpretation Comments HIV NON-REACTIVE NON-REACTIVE HIV-1 antigen a nd antigen/ant HIV-1/HIV-2 ant ibodies ibody 4th were notdetecte d. There gen (test is no laborator y evidence code = of HIVinfection . PLEASE 76193-2) NOTE: This info rmation has been disclo [...] ad ditional information ple ase refer tohttp://educat ion.Mebelrama/ faq/DQG771 (This link is b eing provided for informational/e ducational purposes only.) The performance of this assay has not been clinicallyvalid ated in patients less t lagunas 2 years old. RAC (test Performing code = RAC) Organization Information: Site ID: RGA Name: [facility] Address: [address] [place] [phone] Director: Rajinder Grant [facility] CampusHSV 1 and 2 specific Ab [id number] 22:17:00 Test Item Value Reference Interpretation Comments [...] ease refer to http://educatio nReza tDiagnostics.co m/faq/ MLO763 (This li nk is being provided for informational/e ducati onal purposes o nly.) RAC (test code = Performing RAC) Organization Information: Site ID: IG Name: [facility] Address: [address] [place] [address] Director: Dr. Rajinder Grant Lab Interpretation Abnormal (test code = 15373-1) [facility] B surface [id number] 22:17:00 Test Item Value Reference Range Interpretation Comments Hepatitis B surface NON-REACTIVE NON-REACTIVE Ag (test code = 5196-1) RAC (test code = RAC) Performing Organization Information: Site ID: RGA Name: [facility] Address: [address] [place] [address] Director: Rajinder Grant [facility] CampusRPR with reflex to [id number] 22:17:00 Test Item Value Reference Range Interpretation Comments RPR (test code = NON-REACTIVE NON-REACTIVE 33559-2) RAC (test code = Performing Organization RAC) Information: Site ID: RGA Name: [facility] Address: [address] [place] [address] Director: Rajinder Grant [facility] C virus (HCV), quantitative [id number] 22:17:00 Test Item Value Reference Interpretation Comments Range HCV RNA, <15 NOT DETECTED NOT DETECTED quantitative PCR IU/mL (test code = 54680-0) HCV viral log <1.18 NOT DETECTED NOT DETECTED This bhupendra t was (test code = Log IU/mL performed using 88577-5) Real-Time Polym erase ChainReaction. Reportable Rang e: 15 IU/mL to 100,00 0,000 IU/mL(1.18 Log IU/mL to 8.00 Log IU/ mL). The analytical performance characteristics of thisassay have been determined by [employer]. Th e modifications h ave not been cleare d or approved bythe FDA. This assay has been validated pursu ant to the CLIA regulations and is used for clinic al purposes. For m ore information on this test, go to:http://Am[employer]iMed Corporationa Ohmconnecton. Bullhorn /faq/XLI37h6(Th is link is being provided for informational/e ducat ional purposes only.) RAC (test code = Performing RAC) Organization Information: Site ID: IG Name: [facility] Address: [address] [place] [address] Director: Dr. Rajinder Grant [facility] C [id number] 22:17:00 Test Item Value Reference Interpretation Comments Range Hepatitis C Ab (test REACTIVE NON-REACTIVE A code = 82605-5) Signal/cutoff (test >11.00 See_Comment H Based o n this code = 42785-4) result, the sample will be testedf or [...] RAC) Organization Information: Site ID: RGA Name: [facility] Address: [address] [place] [address] Director: Rajinder Grant Lab Interpretation Abnormal (test code = 75648-5) [facility] type 1/2 combined Ab, [id number] 22:17:00 Test Item Value Reference Interpretation Comments Range HSV 1 IgM NEGATIVE (test code = 04922-4) HSV 2 IgM NEGATIVE REFERENCE RANG E: NEGATIVE HSV (test IgM is detectab le in serum code = from >90% [facility] [address]-8) primary HSV inf ection. However, HSV Ig [...] performancechar acteristics have been deter mined by [employer].It has not been cleared or appr luis by FDA. This assay hasb een validated pursuant to the CLIA regulations and isused for clinical purpos es. RAC (test Performing code = Organization RAC) Information: Site ID: EZ Name: [employer], Address: [address] [place] [phone] Director: Crista Camacho MD,PhD,BARI [facility] RehabilitationHIV 1/2 antigen/antibody, fourth generation, with reflexes 2022-02-11 22:17:00 Test Item Value Reference Range Interpretation Comments HIV NON-REACTIVE NON-REACTIVE HIV-1 antigen a nd antigen/ant HIV-1/HIV-2 ant ibodies ibody 4th were notdetecte d. There gen (test is no laborator y evidence code = of HIVinfection . PLEASE 14702-7) NOTE: This info rmation has been disclo [...] ad ditional information ple ase refer tohttp://educat ion.Mebelrama/ faq/WRV268 (This link is b eing provided for informational/e ducational purposes only.) The performance of this assay has not been clinicallyvalid ated in patients less t lagunas 2 years old. RAC (test Performing code = RAC) Organization Information: Site ID: KATERINA Name: [facility] Address: [address] [place] [address] Director: [facility]inder [facility] CenterHS[facility] 1 and 2 specific Ab [id number] 22:17:00 Test Item Value Reference Interpretation Comments [...] ease refer to http://educatio n.Ques tDiagnostics.co m/faq/ CIU251 (This li nk is being provided for informational/e ducati onal purposes o nly.) RAC (test code = Performing RAC) Organization Information: Site ID: IG Name: [facility] Lab Address: [address] [place] [address] Director: Dr. Rajinder Grant Lab Interpretation Abnormal (test code = 94802-4) [facility] CampusHepatitis B surface [id number] 22:17:00 Test Item Value Reference Range Interpretation Comments Hepatitis B surface NON-REACTIVE NON-REACTIVE Ag (test code = 5196-1) RAC (test code = RAC) Performing Organization Information: Site ID: RGA Name: [facility] Address: [address] [place] [address] Director: Rajinder Grant [facility] CampusRPR with reflex to [id number] 22:17:00 Test Item Value Reference Range Interpretation Comments RPR (test code = NON-REACTIVE NON-REACTIVE 58963-7) RAC (test code = Performing Organization RAC) Information: Site ID: RGA Name: [facility] Address: [address] [place] [address] Director: Rajinder Grant [facility] C virus (HCV), quantitative [id number] 22:17:00 Test Item Value Reference Interpretation Comments Range HCV RNA, <15 NOT DETECTED NOT DETECTED quantitative PCR IU/mL (test code = 91877-7) HCV viral log <1.18 NOT DETECTED NOT DETECTED This bhupendra t was (test code = Log IU/mL performed using 80888-0) Real-Time Polym erase ChainReaction. Reportable Rang e: 15 IU/mL to 100,00 0,000 IU/mL(1.18 Log IU/mL to 8.00 Log IU/ mL). The analytical performance characteristics of thisassay have been determined by [employer]. Th e modifications h ave not been cleare d or approved bythe FDA. This assay has been validated pursu ant to the CLIA regulations and is used for clinic al purposes. For m ore information on this test, go to:http://educa tion. Bullhorn /faq/KIK70n7(Th is link is being provided for informational/e ducat ional purposes only.) RAC (test code = Performing RAC) Organization Information: Site ID: IG Name: [facility] Address: [address] [place] [address] Director: Dr. Rajinder Grant [facility] C [id number] 22:17:00 Test Item Value Reference Interpretation Comments Range Hepatitis C Ab (test REACTIVE NON-REACTIVE A code = 10055-8) Signal/cutoff (test >11.00 <=1.00 H Based o n this code = 19428-7) result, the sample will be testedf or HCV RNA by a Nucleic Acid Amplification T est (NAAT)to determ ine if the patient has a current activeinfection . RAC (test code = Performing RAC) Organization Information: Site ID: RGA Name: [facility] Address: [address] [place] [address] Director: Rajinder Grant Lab Interpretation Abnormal (test code = 61300-4) [facility], [id number] 22:17:00 Test Item Value Reference Interpretation Comments Range HSV 1 IgM NEGATIVE (test code = 39877-6) HSV 2 IgM NEGATIVE REFERENCE RANG E: NEGATIVE HSV (test IgM is detectab le in serum code = from >90% of [place] trace[place] [address]-6) primary HSV inf ection. However, HSV Ig [...] performancechar acteristics have been deter mined by [employer].It has not been cleared or appr luis by FDA. This assay hasb een validated pursuant to the CLIA regulations and isused for clinical purpos es. RAC (test Performing code = Organization RAC) Information: Site ID: EZ Name: [employer], Address: [address] [place] [address] Director: Crista Camacho MD,PhD,BARI [facility] CampusHIV 1/2 antigen/antibody, fourth generation, with reflexes 2022-02-11 22:17:00 Test Item Value Reference Range Interpretation Comments HIV NON-REACTIVE NON-REACTIVE HIV-1 antigen a nd antigen/ant HIV-1/HIV-2 ant ibodies ibody 4th were notdetecte d. There gen (test is no laborator y evidence code = of HIVinfection . PLEASE 78126-2) NOTE: This info rmation has been disclo theresa peck from records wh ose confidentiality may beprotected by state law. If your state r equires suchprotection, then the state law prohi bits you frommaking any further disclosure of t he informationwith out the specific writte n consent of the personto whom it pertains, or as otherwise permitted by rodriguez renee for the release of medical orother informa tion is NOT sufficient for this purpose. For ad ditional information ple ase refer tohttp://educat ion.Mebelrama/ faq/YUP995 (This link is b eing provided for informational/e ducational purposes only.) The performance of this assay has not been clinicallyvalid ated in patients less t lagunas 2 years old. RAC (test Performing code = RAC) Organization Information: Site ID: RGA Name: [facility] Address: [address] [place] [address] Director: Rajinder Grant [facility] CampusHSV 1 and 2 specific Ab [id number] 22:17:00 Test Item Value Reference Interpretation Comments [...] additional information, pl ease refer to http://educatiguillermina Garcia tDiagnostics.co m/faq/ FFS548 (This li nk is being provided for informational/e ducati onal purposes o nly.) RAC (test code = Performing RAC) Organization Information: Site ID: IG Name: [facility] Lab Address: [address] [place] [address] Director: Dr. Rajinder Grant Lab Interpretation Abnormal (test code = 57229-2) [facility] CampusHepatitis B surface [id number] 22:17:00 Test Item Value Reference Range Interpretation Comments Hepatitis B surface NON-REACTIVE NON-REACTIVE Ag (test code = 5196-1) RAC (test code = RAC) Performing Organization Information: Site ID: RGA Name: [facility] Address: [address] [place] [address] Director: Rajinder Grant [facility] CampusRP with reflex to [id number] 22:17:00 Test Item Value Reference Range Interpretation Comments RPR (test code = NON-REACTIVE NON-REACTIVE 45850-1) RAC (test code = Performing Organization RAC) Information: Site ID: RGA Name: [facility] Address: [address] [place] [address] Director: Rajinder Grant [facility] C virus (HCV), quantitative [id number] 22:17:00 Test Item Value Reference Interpretation Comments Range HCV RNA, <15 NOT DETECTED NOT DETECTED quantitative PCR IU/mL (test code = 17390-1) HCV viral log <1.18 NOT DETECTED NOT DETECTED This bhupendra t was (test code = Log IU/mL performed using 05230-8) Real-Time Polym erase ChainReaction. Reportable Rang e: 15 IU/mL to 100,00 0,000 IU/mL(1.18 Log IU/mL to 8.00 Log IU/ mL). The analytical performance characteristics of thisassay have been determined by [employer]. Th e modifications h ave not been cleare d or approved bythe FDA. This assay has been validated pursu ant to the CLIA regulations and is used for clinic al purposes. For m ore information on this test, go to:http://educa tion. [employer].com /faq/IFF03r7(Th is link is being provided for informational/e ducat ional purposes only.) RAC (test code = Performing RAC) Organization Information: Site ID: IG Name: [facility] Address: [address] [place] [address] Director: Dr. Rajinder Grant [facility] C [id number] 22:17:00 Test Item Value Reference Interpretation Comments Range Hepatitis C Ab (test REACTIVE NON-REACTIVE A code = 14212-2) Signal/cutoff (test >11.00 <=1.00 H Based o n this code = 95279-6) result, the sample will be testedf or HCV RNA by a Nucleic Acid Amplification T est (NAAT)to determ ine if the patient has a current activeinfection . RAC (test code = Performing RAC) Organization Information: Site ID: RGA Name: [facility] Address: [address] [place] [address] Director: Rajinder Grant Lab Interpretation Abnormal (test code = 55509-7) [facility] CampusHSV type 1/2 combined Ab, [id number] 22:17:00 Test Item Value Reference Interpretation Comments Range HSV 1 IgM NEGATIVE (test code = 31553-0) HSV 2 IgM NEGATIVE REFERENCE RANG E: NEGATIVE HSV (test IgM is detectab le in serum code = from >90% of [facility] [address]-8) primary HSV inf ection. However, HSV Ig [...] performancechar acteristics have been deter mined by [employer].It has not been cleared or appr luis by FDA. This assay hasb een validated pursuant to the CLIA regulations and isused for clinical purpos es. RAC (test Performing code = Organization RAC) Information: Site ID: EZ Name: [employer], Address: [address] [place] [address] Director: Crista Camacho MD,PhD,BARI [facility]HIV 1/2 antigen/antibody, fourth generation, with reflexes 2022-02-11 22:17:00 Test Item Value Reference Range Interpretation Comments HIV NON-REACTIVE NON-REACTIVE HIV-1 antigen a nd antigen/ant HIV-1/HIV-2 ant ibodies ibody 4th were notdetecte d. There gen (test is no laborator y evidence code = of HIVinfection . PLEASE 51166-2) NOTE: This info rmation has been disclo [...] ad ditional information ple ase refer tohttp://educat ion.Mebelrama/ faq/SLI015 (This link is b eing provided for informational/e ducational purposes only.) The performance of this assay has not been clinicallyvalid ated in patients less t lagunas 2 years old. RAC (test Performing code = RAC) Organization Information: Site ID: RGA Name: [facility] Address: [address] [place] [address] Director: Rajinder Grant [facility] CampusHSV 1 and 2 specific Ab [id number] 22:17:00 Test Item Value Reference Interpretation Comments [...] ease refer to http://educatio n.Ques tDiagnostics.co m/faq/ ZFI604 (This li nk is being provided for informational/e ducati onal purposes o nly.) RAC (test code = Performing RAC) Organization Information: Site ID: IG Name: [facility] Lab Address: [address] [place] [address] Director: Dr. Rajinder Grant Lab Interpretation Abnormal (test code = 89010-4) [facility] [id number] 22:17:00 Test Item Value Reference Range Interpretation Comments Hepatitis B surface NON-REACTIVE NON-REACTIVE Ag (test code = 5196-1) RAC (test code = RAC) Performing Organization Information: Site ID: RGA Name: [facility] Address: [address] [place] [address] Director: Rajinder Grant [facility] CampusRP with reflex to [id number] 22:17:00 Test Item Value Reference Range Interpretation Comments RPR (test code = NON-REACTIVE NON-REACTIVE 53401-3) RAC (test code = Performing Organization RAC) Information: Site ID: RGA Name: [facility] Address: [address] [place] [phone] Director: Rajinder Grant [facility] C virus (HCV), quantitative [id number] 22:17:00 Test Item Value Reference Interpretation Comments Range HCV RNA, <15 NOT DETECTED NOT DETECTED quantitative PCR IU/mL (test code = 85222-0) HCV viral log <1.18 NOT DETECTED NOT DETECTED This bhupendra t was (test code = Log IU/mL performed using 49737-9) Real-Time Polym erase ChainReaction. Reportable Rang e: 15 IU/mL to 100,00 0,000 IU/mL(1.18 Log IU/mL to 8.00 Log IU/ mL). The analytical performance characteristics of thisassay have been determined by [employer]. Th e modifications h ave not been cleare d or approved bythe FDA. This assay has been validated pursu ant to the CLIA regulations and is used for clinic al purposes. For m ore information on this test, go to:http://educa tion. Bullhorn /faq/AIX43g4(Th is link is being provided for informational/e ducat ional purposes only.) RAC (test code = Performing RAC) Organization Information: Site ID: IG Name: [facility] Address: [address] [place] [address] Director: Dr. Rajinder Grant [facility] CampusHepatitis C [id number] 22:17:00 Test Item Value Reference Interpretation Comments Range Hepatitis C Ab (test REACTIVE NON-REACTIVE A code = 97563-0) Signal/cutoff (test >11.00 <=1.00 H Based o n this code = 07601-9) result, the sample will be testedf or HCV RNA by a Nucleic Acid Amplification T est (NAAT)to determ ine if the patient has a current activeinfection . RAC (test code = Performing RAC) Organization Information: Site ID: RGA Name: [facility] Address: [address] [place] [address] Director: Rajinder Grant Lab Interpretation Abnormal (test code = 00461-2) [facility], [id number] 22:17:00 Test Item Value Reference Interpretation Comments Range HSV 1 IgM NEGATIVE (test code = 72491-0) HSV 2 IgM NEGATIVE REFERENCE RANG E: NEGATIVE HSV (test IgM is detectab le in serum code = from >90% of [facility] [address]-0) primary HSV inf ection. However, HSV Ig [...] performancechar acteristics have been deter mined by [employer].It has not been cleared or appr luis by FDA. This assay hasb een validated pursuant to the CLIA regulations and isused for clinical purpos es. RAC (test Performing code = Organization RAC) Information: Site ID: EZ Name: [employer], Address: [address] [place] [address] Director: Crista Camacho MD,PhD,BARI [facility] [facility]2 antigen/antibody, fourth generation, with reflexes 2022-02-11 22:17:00 Test Item Value Reference Range Interpretation Comments HIV NON-REACTIVE NON-REACTIVE HIV-1 antigen a nd antigen/ant HIV-1/HIV-2 ant ibodies ibody 4th were notdetecte d. There gen (test is no laborator y evidence code = of HIVinfection . PLEASE 99582-5) NOTE: This info rmation has been disclo [...] ad ditional information ple ase refer tohttp://educat ion.AeternusLED.Intigua/ faq/NGK265 (This link is b eing provided for informational/e ducational purposes only.) The performance of this assay has not been clinicallyvalid ated in patients less t lagunas 2 years old. RAC (test Performing code = RAC) Organization Information: Site ID: RGA [facility]: [facility] Address: [address] [place] [phone] Director: Rajinder Grant [facility] CampusHSV 1 and 2 specific Ab [id number] 22:17:00 Test Item Value Reference Interpretation Comments [...] ease refer to http://educatio n.Ques tDiagnostics.co m/faq/ REG595 (This li nk is being provided for informational/e ducati onal purposes o nly.) RAC (test code = Performing RAC) Organization Information: Site ID: IG Name: [facility] Address: [address] [place] [address] Director: Dr. Rajinder Grant Lab Interpretation Abnormal (test code = 40420-0) [facility] B surface [id number] 22:17:00 Test Item Value Reference Range Interpretation Comments Hepatitis B surface NON-REACTIVE NON-REACTIVE Ag (test code = 5196-1) RAC (test code = RAC) Performing Organization Information: Site ID: RGA [facility]: [facility] Address: [address] [place] [address] Director: Rajinder Grant [facility] CampusRPR with reflex to [id number] 22:17:00 Test Item Value Reference Range Interpretation Comments RPR (test code = NON-REACTIVE NON-REACTIVE 16258-9) RAC (test code = Performing Organization RAC) Information: Site ID: RGA [facility] Address: [address] [place] [address] Director: Rajinder Grant [facility] C virus (HCV), quantitative [id number] 22:17:00 Test Item Value Reference Interpretation Comments Range HCV RNA, <15 NOT DETECTED NOT DETECTED quantitative PCR IU/mL (test code = 99534-8) HCV viral log <1.18 NOT DETECTED NOT DETECTED This bhupendra t was (test code = Log IU/mL performed using 34300-6) Real-Time Polym erase ChainReaction. Reportable Rang e: 15 IU/mL to 100,00 0,000 IU/mL(1.18 Log IU/mL to 8.00 Log IU/ mL). The analytical performance characteristics of thisassay have been determined by [employer]. Th e modifications h ave not been cleare d or approved bythe FDA. This assay has been validated pursu ant to the CLIA regulations and is used for clinic al purposes. For more information on this test, go to:http://educa Ohmconnecton. Bullhorn /faq/ESW50i6(Th is link is being provided for informational/e ducat ional purposes only.) RAC (test code = Performing RAC) Organization Information: Site ID: IG [facility]: [facility] Address: [address] [place] [phone] Director: Dr. Rajinder Grant [facility] CampusHepatitis C [id number] 22:17:00 Test Item Value Reference Interpretation Comments Range Hepatitis C Ab (test REACTIVE NON-REACTIVE A code = 48942-0) Signal/cutoff (test >11.00 <=1.00 H Based o n this code = 28898-9) result, the sample will be testedf or HCV RNA by a Nucleic Acid Amplification T est (NAAT)to determ ine if the patient has a current activeinfection . RAC (test code = Performing RAC) Organization Information: Site ID: RGA Name: [facility] Address: [address] [place] [address] Director: Rajinder Grant Lab Interpretation Abnormal (test code = 38362-0) [facility], [id number] 22:17:00 Test Item Value Reference Interpretation Comments Range HSV 1 IgM NEGATIVE (test code = 96444-0) HSV 2 IgM NEGATIVE REFERENCE RANG E: NEGATIVE HSV (test IgM is detectab le in serum code = from >90% of [place] [address]4059-9) primary HSV inf ection. However, HSV Ig [...] performancechar acteristics have been deter mined by [employer].It has not been cleared or appr luis by FDA. This assay hasb een validated pursuant to the CLIA regulations and isused for clinical purpos es. RAC (test Performing code = Organization RAC) Information: Site ID: EZ Name: [employer], Address: [address] [place] [address] Director: Crista Camacho MD,PhD,BARI [facility] 1/2 antigen/antibody, fourth generation, with reflexes 2022-02-11 22:17:00 Test Item Value Reference Range Interpretation Comments HIV NON-REACTIVE NON-REACTIVE HIV-1 antigen a nd antigen/ant HIV-1/HIV-2 ant ibodies ibody 4th were notdetecte d. There gen (test is no laborator y evidence code = of HIVinfection . PLEASE 20774-6) NOTE: This info rmation has been disclo [...] ad ditional information ple ase refer tohttp://educat ion.AeternusLED.Intigua/ faq/POJ987 (This link is b eing provided for informational/e ducational purposes only.) The performance of this assay has not been clinicallyvalid ated in patients less t lagunas 2 years old. RAC (test Performing code = RAC) Organization Information: Site ID: RGA Name: [facility] Address: [address] [place] [address] Director: Rajinder [facility] [id number] 22:17:00 Test Item Value Reference Interpretation Comments [...] ease refer to http://educatio n.Ques tDiagnostics.co m/faq/ VXA677 (This li nk is being provided for informational/e ducati onal purposes o nly.) RAC (test code = Performing RAC) Organization Information: Site ID: IG Name: [facility] Address: [address] [place] [address] Director: Dr. Rajinder Grant Lab Interpretation Abnormal (test code = 60843-1) [facility] CampusHepatitis B surface [id number] 22:17:00 Test Item Value Reference Range Interpretation Comments Hepatitis B surface NON-REACTIVE NON-REACTIVE Ag (test code = 5196-1) RAC (test code = RAC) Performing Organization Information: Site ID: RGA Name: [facility] Address: [address] [place] [address] Director: Rajinder Grant [facility] CampusRP with reflex to [id number] 22:17:00 Test Item Value Reference Range Interpretation Comments RPR (test code = NON-REACTIVE NON-REACTIVE 12139-0) RAC (test code = Performing Organization RAC) Information: Site ID: RGA Name: [facility] Address: [address] [place] [address] Director: Rajinder Grant [facility] C virus (HCV), quantitative [id number] 22:17:00 Test Item Value Reference Interpretation Comments Range HCV RNA, <15 NOT DETECTED NOT DETECTED quantitative PCR IU/mL (test code = 39083-9) HCV viral log <1.18 NOT DETECTED NOT DETECTED This bhupendra t was (test code = Log IU/mL performed using 08850-2) Real-Time Polym erase ChainReaction. Reportable Rang e: 15 IU/mL to 100,00 0,000 IU/mL(1.18 Log IU/mL to 8.00 Log IU/ mL). The analytical performance characteristics of thisassay have been determined by [employer]. Th e modifications h ave not been cleare d or approved bythe FDA. This assay has been validated pursu ant to the CLIA regulations and is used for clinic al purposes. For m ore information on this test, go to:http://AmpliMed Corporationa Ohmconnecton. Bullhorn /faq/IFA99j9(Th is link is being provided for informational/e ducat ional purposes only.) RAC (test code = Performing RAC) Organization Information: Site ID: IG Name: [facility] Address: [address] [place] [phone] Director: Dr. Rajinder Grant [facility] C [id number] 22:17:00 Test Item Value Reference Interpretation Comments Range Hepatitis C Ab (test REACTIVE NON-REACTIVE A code = 73766-2) Signal/cutoff (test >11.00 <=1.00 H Based o n this code = 36244-9) result, the sample will be testedf or HCV RNA by a Nucleic Acid Amplification T est (NAAT)to determ ine if the patient has a current activeinfection . RAC (test code = Performing RAC) Organization Information: Site ID: RGA [facility] Address: [address] [place] [address] Director: Rajinder Grant Lab Interpretation Abnormal (test code = 07069-6) [facility], [id number] 22:17:00 Test Item Value Reference Interpretation Comments Range HSV 1 IgM NEGATIVE (test code = 22956-8) HSV 2 IgM NEGATIVE REFERENCE RANG E: NEGATIVE HSV (test IgM is detectab le in serum code = from >90% of [place] tracey 87895-7) primary HSV inf ection. However, HSV Ig [...] performancechar acteristics have been deter mined by [employer].It has not been cleared or appr luis by FDA. This assay hasb een validated pursuant to the CLIA regulations and isused for clinical purpos es. RAC (test Performing code = Organization RAC) Information: Site ID: EZ Name: [employer], Address: [address] [place] [address] Director: Crista Camacho MD,PhD,BARI [facility]/antibody, fourth generation, with reflexes 2022-02-11 22:17:00 Test Item Value Reference Range Interpretation Comments HIV NON-REACTIVE NON-REACTIVE HIV-1 antigen a nd antigen/ant HIV-1/HIV-2 ant ibodies ibody 4th were notdetecte d. There gen (test is no laborator y evidence code = of HIVinfection . PLEASE 46328-8) NOTE: This info rmation has been disclo [...] ad ditional information ple ase refer tohttp://educat ion.AeternusLED.Intigua/ faq/BEW805 (This link is b eing provided for informational/e ducational purposes only.) The performance of this assay has not been clinicallyvalid ated in patients less t lagunas 2 years old. RAC (test Performing code = RAC) Organization Information: Site ID: RGA Name: [facility] Address: [address] [place] [address] Director: Rajinder Grant [facility] CampusHSV 1 and 2 specific Ab [id number] 22:17:00 Test Item Value Reference Interpretation Comments [...] ease refer to http://educatio n.Tri tDiagnostics.co m/faq/ SFA127 (This li nk is being provided for informational/e ducati onal purposes o nly.) RAC (test code = Performing RAC) Organization Information: Site ID: IG Name: [facility] Address: [address] [place] [address] Director: Dr. Rajinder Grant Lab Interpretation Abnormal (test code = 06405-8) [facility] CampusHepatitis B surface [id number] 22:17:00 Test Item Value Reference Range Interpretation Comments Hepatitis B surface NON-REACTIVE NON-REACTIVE Ag (test code = 5196-1) RAC (test code = RAC) Performing Organization Information: Site ID: RGA Name: [facility] Address: [address] [place] [address] Director: Rajinder [facility]RP with reflex to [id number] 22:17:00 Test Item Value Reference Range Interpretation Comments RPR (test code = NON-REACTIVE NON-REACTIVE 56386-5) RAC (test code = Performing Organization RAC) Information: Site ID: RGA Name: [facility] Address: [address] [place] [phone] Director: Rajinder Grant [facility] C virus (HCV), quantitative [id number] 22:17:00 Test Item Value Reference Interpretation Comments Range HCV RNA, <15 NOT DETECTED NOT DETECTED quantitative PCR IU/mL (test code = 79258-3) HCV viral log <1.18 NOT DETECTED NOT DETECTED This bhupendra t was (test code = Log IU/mL performed using 33674-0) Real-Time Polym erase ChainReaction. Reportable Rang e: 15 IU/mL to 100,00 0,000 IU/mL(1.18 Log IU/mL to 8.00 Log IU/ mL). The analytical performance characteristics of thisassay have been determined by [employer]. Th e modifications h ave not been cleare d or approved bythe FDA. This assay has been validated pursu ant to the CLIA regulations and is used for clinic al purposes. For m ore information on this test, go to:http://educa Ohmconnecton. Bullhorn /faq/USE81y8(Th is link is being provided for informational/e ducat ional purposes only.) RAC (test code = Performing RAC) Organization Information: Site ID: IG Name: [facility] Address: [address] [place] [address] Director: Dr. Rajinder Grant [facility] C [id number] 22:17:00 Test Item Value Reference Interpretation Comments Range Hepatitis C Ab (test REACTIVE NON-REACTIVE A code = 21015-8) Signal/cutoff (test >11.00 See_Comment H Based o n this code = 82195-0) result, the sample will be testedf or [...] RAC) Organization Information: Site ID: RGA Name: [facility] Address: [address] [place] [address] Director: Rajinder Grant Lab Interpretation Abnormal (test code = 69271-0) [facility] CampusHSV type 1/2 combined Ab, [id number] 22:17:00 Test Item Value Reference Interpretation Comments Range HSV 1 IgM NEGATIVE (test code = 27761-8) HSV 2 IgM NEGATIVE REFERENCE RANG E: NEGATIVE HSV (test IgM is detectab le in serum code = from >90% of [facility] [address]-5) primary HSV inf ection. However, HSV Ig [...] performancechar acteristics have been deter mined by [employer].It has not been cleared or appr luis by FDA. This assay hasb een validated pursuant to the CLIA regulations and isused for clinical purpos es. RAC (test Performing code = Organization RAC) Information: Site ID: EZ Name: [employer], Address: [address] [place] [phone] Director: Crista Camacho MD,PhD,BARI [facility] CampusHIV 1/2 antigen/antibody, fourth generation, with reflexes 2022-02-11 22:17:00 Test Item Value Reference Range Interpretation Comments HIV NON-REACTIVE NON-REACTIVE HIV-1 antigen a nd antigen/ant HIV-1/HIV-2 ant ibodies ibody 4th were notdetecte d. There gen (test is no laborator y evidence code = of HIVinfection . PLEASE 73783-2) NOTE: This info rmation has been disclo [...] ad ditional information ple ase refer tohttp://educat ion.Mebelrama/ faq/XLA639 (This link is b eing provided for informational/e ducational purposes only.) The performance of this assay has not been clinicallyvalid ated in patients less t lagunas 2 years old. RAC (test Performing code = RAC) Organization Information: Site ID: RGA Name: [facility] Address: [address] [place] [phone] Director: Rajinder Grant [facility] CampusHSV 1 and 2 specific Ab [id number] 22:17:00 Test Item Value Reference Interpretation Comments [...] ease refer to http://educatio n.Ques tDiagnostics.co m/faq/ BAY685 (This angel collins is being provided for informational/e ducati onal purposes o nly.) RAC (test code = Performing RAC) Organization Information: Site ID: IG Name: [facility] Address: [address] [place] [address] Director: Dr. Rajinder Grant Lab Interpretation Abnormal (test code = 13653-6) [facility] CampusHesaint joseph easttis B surface [id number] 22:17:00 Test Item Value Reference Range Interpretation Comments Hepatitis B surface NON-REACTIVE NON-REACTIVE Ag (test code = 5196-1) RAC (test code = RAC) Performing Organization Information: Site ID: RGA Name: [facility] Address: [address] [place] [address] Director: Rajinder Grant [facility] CampusRP with reflex to [id number] 22:17:00 Test Item Value Reference Range Interpretation Comments RPR (test code = NON-REACTIVE NON-REACTIVE 33982-1) RAC (test code = Performing Organization RAC) Information: Site ID: RGA Name: [facility] Address: [address] [place] [phone] Director: Rajinder Grant [facility] C virus (HCV), quantitative [id number] 22:17:00 Test Item Value Reference Interpretation Comments Range HCV RNA, <15 NOT DETECTED NOT DETECTED quantitative PCR IU/mL (test code = 47882-9) HCV viral log <1.18 NOT DETECTED NOT DETECTED This bhupendra t was (test code = Log IU/mL performed using 36254-9) Real-Time Polym erase ChainReaction. Reportable Rang e: 15 IU/mL to 100,00 0,000 IU/mL(1.18 Log IU/mL to 8.00 Log IU/ mL). The analytical performance characteristics of thisassay have been determined by [employer]. Th e modifications h ave not been cleare d or approved bythe FDA. This assay has been validated pursu ant to the CLIA regulations and is used for clinic al purposes. For m ore information on this test, go to:http://educa dylon. Bullhorn /faq/EOS96u0(Th is link is being provided for informational/e ducat ional purposes only.) RAC (test code = Performing RAC) Organization Information: Site ID: IG Name: [facility] Address: [address] [place] [address] Director: Dr. Rajinder Grant [facility] CampusHepatitis C [id number] 22:17:00 Test Item Value Reference Interpretation Comments Range Hepatitis C Ab (test REACTIVE NON-REACTIVE A code = 01134-4) Signal/cutoff (test >11.00 See_Comment H Based o n this code = 85058-1) result, the sample will be testedf or [...] RAC) Organization Information: Site ID: RGA [facility]: [facility] Address: [address] [place] [address] Director: Rajinder Grant Lab Interpretation Abnormal (test code = 60561-1) [facility], [id number] 22:17:00 Test Item Value Reference Interpretation Comments Range HSV 1 IgM NEGATIVE (test code = 16411-4) HSV 2 IgM NEGATIVE REFERENCE RANG E: NEGATIVE HSV (test IgM is detectab le in serum code = from >90% of [facility] [address]-8) primary HSV inf ection. However, HSV Ig [...] performancechar acteristics have been deter mined by [employer].It has not been cleared or appr luis by FDA. This assay hasb een validated pursuant to the CLIA regulations and isused for clinical purpos es. RAC (test Performing code = Organization RAC) Information: Site ID: EZ Name: [employer], Address: [address] [place] [address] Director: Crista Camacho MD,PhD,BARI [facility] RehabilitationHIV 1/2 antigen/antibody, fourth generation, with reflexes 2022-02-11 22:17:00 Test Item Value Reference Range Interpretation Comments HIV NON-REACTIVE NON-REACTIVE HIV-1 antigen a nd antigen/ant HIV-1/HIV-2 ant ibodies ibody 4th were notdetecte d. There gen (test is no laborator y evidence code = of HIVinfection . PLEASE 91557-2) NOTE: This info rmation has been disclo [...] ad ditional information ple ase refer tohttp://educat ion.AeternusLED.Intigua/ faq/ZYQ877 (This link is b eing provided for informational/e ducational purposes only.) The performance of this assay has not been clinicallyvalid ated in patients less t lagunas 2 years old. RAC (test Performing code = RAC) Organization Information: Site ID: RGA Name: [facility] Address: [address] [place] [address] Director: Rajinder [facility] CenterHSV 1 and 2 specific Ab [id number] 22:17:00 Test Item Value Reference Interpretation Comments [...] ease refer to http://educatio n.Ques tDiagnostics.co m/faq/ CIT952 (This li nk is being provided for informational/e ducati onal purposes o nly.) RAC (test code = Performing RAC) Organization Information: Site ID: IG Name: [facility] Address: [address] [place] [phone] Director: Dr. Rajinder Grant Lab Interpretation Abnormal (test code = 25572-2) [facility] [id number] 22:17:00 Test Item Value Reference Range Interpretation Comments Hepatitis B surface NON-REACTIVE NON-REACTIVE Ag (test code = 5196-1) RAC (test code = RAC) Performing Organization Information: Site ID: RGA Name: [facility] Address: [address] [place] [address] Director: Rajinder Grant [facility] CampusRPR with reflex to [id number] 22:17:00 Test Item Value Reference Range Interpretation Comments RPR (test code = NON-REACTIVE NON-REACTIVE 05874-0) RAC (test code = Performing Organization RAC) Information: Site ID: RGA [facility]: [facility] Address: [address] [place] [address] Director: Rajinder Grant [facility] C virus (HCV), quantitative [id number] 22:17:00 Test Item Value Reference Interpretation Comments Range HCV RNA, <15 NOT DETECTED NOT DETECTED quantitative PCR IU/mL (test code = 47563-9) HCV viral log <1.18 NOT DETECTED NOT DETECTED This bhupendra t was (test code = Log IU/mL performed using 17989-1) Real-Time Polym erase ChainReaction. Reportable Rang e: 15 IU/mL to 100,00 0,000 IU/mL(1.18 Log IU/mL to 8.00 Log IU/ mL). The analytical performance characteristics of thisassay have been determined by [employer]. Th e modifications h ave not been cleare d or approved bythe FDA. This assay has been validated pursu ant to the CLIA regulations and is used for clinic al purposes. For m ore information on this test, go to:http://educa tion. Bullhorn /faq/UEP99y4(Th is link is being provided for informational/e ducat ional purposes only.) RAC (test code = Performing RAC) Organization Information: Site ID: IG Name: [facility] Address: [address] [place] [address] Director: Dr. Rajinder Grant [facility] CampusHepatitis C [id number] 22:17:00 Test Item Value Reference Interpretation Comments Range Hepatitis C Ab (test REACTIVE NON-REACTIVE A code = 09128-3) Signal/cutoff (test >11.00 See_Comment H Based o n this code = 06093-5) result, the sample will be testedf or [...] RAC) Organization Information: Site ID: RGA [facility]: [facility] Lab Address: [address] [place] [address] Director: Rajinder Grant Lab Interpretation Abnormal (test code = 77824-0) [facility] CampusHSV type 1/2 combined Ab, [id number] 22:17:00 Test Item Value Reference Interpretation Comments Range HSV 1 IgM NEGATIVE (test code = 13937-9) HSV 2 IgM NEGATIVE REFERENCE RANG E: NEGATIVE HSV (test IgM is detectab le in serum code = from >90% of [place] tracey 39466-2) primary HSV inf ection. However, HSV Ig [...] performancechar acteristics have been deter mined by [employer].It has not been cleared or appr luis by FDA. This assay hasb een validated pursuant to the CLIA regulations and isused for clinical purpos es. RAC (test Performing code = Organization RAC) Information: Site ID: EZ Name: [employer], Address: [address] [place] [address] Director: Crista Camacho MD,PhD,BARI [facility] CampusHIV 1/2 antigen/antibody, fourth generation, with reflexes 2022-02-11 22:17:00 Test Item Value Reference Range Interpretation Comments HIV NON-REACTIVE NON-REACTIVE HIV-1 antigen a nd antigen/ant HIV-1/HIV-2 ant ibodies ibody 4th were notdetecte d. There gen (test is no laborator y evidence code = of HIVinfection . PLEASE 89306-0) NOTE: This info rmation has been disclo [...] ad ditional information ple ase refer tohttp://educat ion.AeternusLED.Intigua/ faq/EGZ534 (This link is b eing provided for informational/e ducational purposes only.) The performance of this assay has not been clinicallyvalid ated in patients less t lagunas 2 years old. RAC (test Performing code = RAC) Organization Information: Site ID: RGA [facility]: [facility] Address: [address] [place] [phone] Director: Rajinder Grant [facility] CampusHSV 1 and 2 specific Ab [id number] 22:17:00 Test Item Value Reference Interpretation Comments [...] ease refer to http://educatio n.Tri tDiagnostics.co m/faq/ SBH163 (This li nk is being provided for informational/e ducati onal purposes o nly.) RAC (test code = Performing RAC) Organization Information: Site ID: IG Name: [facility] Address: [address] [place] [phone] Director: Dr. Rajinder Grant Lab Interpretation Abnormal (test code = 29884-3) [facility] CampusHepatitis B surface [id number] 22:17:00 Test Item Value Reference Range Interpretation Comments Hepatitis B surface NON-REACTIVE NON-REACTIVE Ag (test code = 5196-1) RAC (test code = RAC) Performing Organization Information: Site ID: RGA Name: [facility] Address: [address] [place] [phone] Director: Rajinder Grant [facility] CampusRPR with reflex to [id number] 22:17:00 Test Item Value Reference Range Interpretation Comments RPR (test code = NON-REACTIVE NON-REACTIVE 68189-6) RAC (test code = Performing Organization RAC) Information: Site ID: BEBA Name: [facility] Address: [address] [place] [phone] Director: Rajinder Parker [facility] C virus (HCV), quantitative [id number] 22:17:00 Test Item Value Reference Interpretation Comments Range HCV RNA, <15 NOT DETECTED NOT DETECTED quantitative PCR IU/mL (test code = 56432-5) HCV viral log <1.18 NOT DETECTED NOT DETECTED This bhupendra t was (test code = Log IU/mL performed using 80114-3) Real-Time Polym erase ChainReaction. Reportable Rang e: 15 IU/mL to 100,00 0,000 IU/mL(1.18 Log IU/mL to 8.00 Log IU/ mL). The analytical performance characteristics of thisassay have been determined by [employer]. Th e modifications h ave not been cleare d or approved bythe FDA. This assay has been validated pursu ant to the CLIA regulations and is used for clinic al purposes. For m ore information on this test, go to:http://educa tion. Bullhorn /faq/WJZ55w0( is link is being provided for informational/e ducat ional purposes only.) RAC (test code = Performing RAC) Organization Information: Site ID: IG [facility]: [facility] Address: [address] [place] [phone] Director: Dr. Rajinder Grant [facility] C [id number] 22:17:00 Test Item Value Reference Interpretation Comments Range Hepatitis C Ab (test REACTIVE NON-REACTIVE A code = 81977-7) Signal/cutoff (test >11.00 <=1.00 H Based o n this code = 68140-7) result, the sample will be testedf or HCV RNA by a Nucleic Acid Amplification T est (NAAT)to determ ine if the patient has a current activeinfection . RAC (test code = Performing RAC) Organization Information: Site ID: BEBA [facility] Address: [address] [place] [phone] Director: Rajinder Grant Lab Interpretation Abnormal (test code = 54821-6) [facility], [id number] 22:17:00 Test Item Value Reference Interpretation Comments Range HSV 1 IgM NEGATIVE (test code = 83693-9) HSV 2 IgM NEGATIVE REFERENCE RANG E: NEGATIVE HSV (test IgM is detectab le in serum code = from >90% of [place] tracey 32130-2) primary HSV inf ection. However, HSV Ig [...] performancechar acteristics have been deter mined by [employer].It has not been cleared or appr luis by FDA. This assay hasb een validated pursuant to the CLIA regulations and isused for clinical purpos es. RAC (test Performing code = Organization RAC) Information: Site ID: EZ Name: [employer], Address: [address] [place] [phone] Director: Crista Camacho MD,PhD,BARI [facility] RehabilitationHIV 1/2 antigen/antibody, fourth generation, with reflexes 2022-02-11 22:17:00 Test Item Value Reference Range Interpretation Comments HIV NON-REACTIVE NON-REACTIVE HIV-1 antigen a nd antigen/ant HIV-1/HIV-2 ant ibodies ibody 4th were notdetecte d. There gen (test is no laborator y evidence code = of HIVinfection . PLEASE 45759-0) NOTE: This info rmation has been disclo [...] ad ditional information ple ase refer tohttp://educat ion.Mebelrama/ faq/JNG713 (This link is b eing provided for informational/e ducational purposes only.) The performance of this assay has not been clinicallyvalid ated in patients less t lagunas 2 years old. RAC (test Performing code = RAC) Organization Information: Site ID: RGA Name: [facility] Address: [address] [place] [address] Director: Rajinder Grant [facility] CampusHSV 1 and 2 specific Ab [id number] 22:17:00 Test Item Value Reference Interpretation Comments [...] ease refer to http://educatio n.Ques tDiagnostics.co m/faq/ VYH400 (This li nk is being provided for informational/e ducati onal purposes o nly.) RAC (test code = Performing RAC) Organization Information: Site ID: IG Name: [facility] Address: [address] [place] [address] Director: Dr. Rajinder Grant Lab Interpretation Abnormal (test code = 06983-8) [facility] B surface [id number] 22:17:00 Test Item Value Reference Range Interpretation Comments Hepatitis B surface NON-REACTIVE NON-REACTIVE Ag (test code = 5196-1) RAC (test code = RAC) Performing Organization Information: Site ID: RGA Name: [facility] Address: [address] [place] [phone] Director: Rajinder Grant [facility] CampusRPR with reflex to [id number] 22:17:00 Test Item Value Reference Range Interpretation Comments RPR (test code = NON-REACTIVE NON-REACTIVE 03391-1) RAC (test code = Performing Organization RAC) Information: Site ID: RGA Name: [facility] Address: [address] [place] [phone] Director: Rajinder Grant [facility] C virus (HCV), quantitative [id number] 22:17:00 Test Item Value Reference Interpretation Comments Range HCV RNA, <15 NOT DETECTED NOT DETECTED quantitative PCR IU/mL (test code = 91867-8) HCV viral log <1.18 NOT DETECTED NOT DETECTED This bhupendra t was (test code = Log IU/mL performed using 69045-0) Real-Time Polym erase ChainReaction. Reportable Rang e: 15 IU/mL to 100,00 0,000 IU/mL(1.18 Log IU/mL to 8.00 Log IU/ mL). The analytical performance characteristics of thisassay have been determined by [employer]. Th e modifications h ave not been cleare d or approved bythe FDA. This assay has been validated pursu ant to the CLIA regulations and is used for clinic al purposes. For m ore information on this test, go to:http://educa tion. Bullhorn /faq/ZWL50u8(Th is link is being provided for informational/e ducat ional purposes only.) RAC (test code = Performing RAC) Organization Information: Site ID: IG Name: [facility] Address: [address] [place] [phone] Director: Dr. Rajinder Grant [facility] C [id number] 22:17:00 Test Item Value Reference Interpretation Comments Range Hepatitis C Ab (test REACTIVE NON-REACTIVE A code = 01332-5) Signal/cutoff (test >11.00 <=1.00 H Based o n this code = 84539-7) result, the sample will be testedf or HCV RNA by a Nucleic Acid Amplification T est (NAAT)to determ ine if the patient has a current activeinfection . RAC (test code = Performing RAC) Organization Information: Site ID: RGA Name: [facility] Address: [address] [place] [phone] Director: Rajinder Grant Lab Interpretation Abnormal (test code = 29342-1) [facility] CampusHSV type 1/2 combined Ab, [id number] 22:17:00 Test Item Value Reference Interpretation Comments Range HSV 1 IgM NEGATIVE (test code = 71678-8) HSV 2 IgM NEGATIVE REFERENCE RANG E: NEGATIVE HSV (test IgM is detectab le in serum code = from >90% of [facility] [address]-2) primary HSV inf ection. However, HSV Ig [...] performancechar acteristics have been deter mined by [employer].It has not been cleared or appr luis by FDA. This assay hasb een validated pursuant to the CLIA regulations and isused for clinical purpos es. RAC (test Performing code = Organization RAC) Information: Site ID: EZ Name: [employer], Address: [address] [place] [phone] Director: Crista Camacho MD,PhD,BARI [facility] CampusHIV 1/2 antigen/antibody, fourth generation, with reflexes 2022-02-11 22:17:00 Test Item Value Reference Range Interpretation Comments HIV NON-REACTIVE NON-REACTIVE HIV-1 antigen a nd antigen/ant HIV-1/HIV-2 ant ibodies ibody 4th were notdetecte d. There gen (test is no laborator y evidence code = of HIVinfection . PLEASE 57215-5) NOTE: This info rmation has been disclo [...] ad ditional information ple ase refer tohttp://educat ion.Mebelrama/ faq/CFJ783 (This link is b eing provided for informational/e ducational purposes only.) The performance of this assay has not been clinicallyvalid ated in patients less t lagunas 2 years old. RAC (test Performing code = RAC) Organization Information: Site ID: RGA Name: [facility] Address: [address] [place] [phone] Director: Rajinder Grant [facility] CampusHSV 1 and 2 specific Ab [id number] 22:17:00 Test Item Value Reference Interpretation Comments [...] ease refer to http://educatio n.Ques tDiagnostics.co m/faq/ GVW022 (This li nk is being provided for informational/e ducati onal purposes o nly.) RAC (test code = Performing RAC) Organization Information: Site ID: IG Name: [facility] Address: [address] [place] [phone] Director: Dr. Rajinder Grant Lab Interpretation Abnormal (test code = 02888-3) [facility] [id number] 15:02:28 Test Item Value Reference Range Interpretation Comments Case number (test code = [id number]) Surgical pathology See link below for report (test code = PDF Lab Report 2255) Result status (test code This is Final Report = [id number]) for [id number] [facility] [id number] 15:02:28 Test Item Value Reference Range Interpretation Comments Case number (test code = [id number]) Surgical pathology See link below for report (test code = PDF Lab Report 2255) Result status (test code This is Final Report = 0581777) for [id number] [facility] [id number] 15:02:28 Test Item Value Reference Range Interpretation Comments Case number (test code = [id number]) Surgical pathology See link below for report (test code = PDF Lab Report 2255) Result status (test code This is Final Report = 1482838) for [id number] [facility] [id number] 15:02:28 Test Item Value Reference Range Interpretation Comments Case number (test code = [id number]) Surgical pathology See link below for report (test code = PDF Lab Report 2255) Result status (test code This is Final Report = 0047811) for [id number] [facility] [id number] 15:02:28 Test Item Value Reference Range Interpretation Comments Case number (test code = [id number]) Surgical pathology See link below for report (test code = PDF Lab Report 2255) Result status (test code This is Final Report = 8558674) [facility] [id number] [facility] [id number] 15:02:28 Test Item Value Reference Range Interpretation Comments Case number (test code = [id number]) Surgical pathology See link below for report (test code = PDF Lab Report 2255) Result status (test code This is Final Report = 8270536) for [address] pathology [id number] 15:02:28 Test Item Value Reference Range Interpretation Comments Case number (test code = [id number]) Surgical pathology See link below for report (test code = PDF Lab Report 2255) Result status (test code This is Final Report = 2464003) for [address] pathology [id number] 15:02:28 Test Item Value Reference Range Interpretation Comments Case number (test code = [id number]) Surgical pathology See link below for report (test code = PDF Lab Report 2255) Result status (test code This is Final Report = 4964459) for [address] pathology [id number] 15:02:28 Test Item Value Reference Range Interpretation Comments Case number (test code = [id number]) Surgical pathology See link below for report (test code = PDF Lab Report 2255) Result status (test code This is Final Report = 8811517) for [address] pathology [id number] 15:02:28 Test Item Value Reference Range Interpretation Comments Case number (test code = [id number]) Surgical pathology See link below for report (test code = PDF Lab Report 2255) Result status (test code This is Final Report = 0587558) [address] [id number] 15:02:28 Test Item Value Reference Range Interpretation Comments Case number (test code = [id number]) Surgical pathology See link below for report (test code = PDF Lab Report 2255) Result status (test code This is Final Report = 1308256) for [address] pathology [id number] 15:02:28 Test Item Value Reference Range Interpretation Comments Case number (test code = [id number]) Surgical pathology See link below for report (test code = PDF Lab Report 2255) Result status (test code This is Final Report = 5744441) for [id number] [facility] [id number] 15:02:28 Test Item Value Reference Range Interpretation Comments Case number (test code = [id number]) Surgical pathology See link below for report (test code = PDF Lab Report 2255) Result status (test code This is Final Report = 3948686) for [id number] [facility] CampusCOVID-19 qualitative [id number] 22:09:28 Test Item Value Reference Interpretation Comments Range Interpretation (test Negative results do not code = 0482142) preclude COVID-19 infection and should not be used asthe sole basis for treatment or other patient management decisions. Negativeresults must be combined with clinical observations, patient history, andepidemiological information. COVID-19 qualitative Not-Detected Not-Detected RT-PCR result (test code = 49796-8) COVID-19 qualitative See link below for PDF Case Number: RT-PCR (test code = Lab Report [id number]) [facility] qualitative [id number] 22:09:28 Test Item Value Reference Interpretation Comments Range Interpretation (test Negative results do not code = 5997662) preclude COVID-19 infection and should not be used asthe sole basis for treatment or other patient management decisions. Negativeresults must be combined with clinical observations, patient history, andepidemiological information. COVID-19 qualitative Not-Detected Not-Detected RT-PCR result (test code = 24958-9) COVID-19 qualitative See link below for PDF Case Number: RT-PCR (test code = Lab Report [id number] 7070) [facility] qualitative [id number] 22:09:28 Test Item Value Reference Interpretation Comments Range Interpretation (test Negative results do not code = 0874128) preclude COVID-19 infection and should not be used asthe sole basis for treatment or other patient management decisions. Negativeresults must be combined with clinical observations, patient history, andepidemiological information. COVID-19 qualitative Not-Detected Not-Detected RT-PCR result (test code = 40647-7) COVID-19 qualitative See link below for PDF Case Number: RT-PCR (test code = Lab Report [id number] 7070) [facility] [id number] 22:09:28 Test Item Value Reference Interpretation Comments Range Interpretation (test Negative results do not code = 5786242) preclude COVID-19 infection and should not be used asthe sole basis for treatment or other patient management decisions. Negativeresults must be combined with clinical observations, patient history, andepidemiological information. COVID-19 qualitative Not-Detected Not-Detected RT-PCR result (test code = 11594-7) COVID-19 qualitative See link below for PDF Case Number: RT-PCR (test code = Lab Report [id number] 7070) [facility] [id number] 22:09:28 Test Item Value Reference Interpretation Comments Range Interpretation (test Negative results do not code = 0946027) preclude COVID-19 infection and should not be used asthe sole basis for treatment or other patient management decisions. Negativeresults must be combined with clinical observations, patient history, andepidemiological information. COVID-19 qualitative Not-Detected Not-Detected RT-PCR result (test code = 13422-3) COVID-19 qualitative See link below for PDF Case Number: RT-PCR (test code = Lab Report [id number] 7070) [facility] qualitative [id number] 22:09:28 Test Item Value Reference Interpretation Comments Range Interpretation (test Negative results do not code = 3575832) preclude COVID-19 infection and should not be used asthe sole basis for treatment or other patient management decisions. Negativeresults must be combined with clinical observations, patient history, andepidemiological information. COVID-19 qualitative Not-Detected Not-Detected RT-PCR result (test code = 31115-5) COVID-19 qualitative See link below for PDF Case Number: RT-PCR (test code = Lab Report [id number] 7070) [facility] qualitative [id number] 22:09:28 Test Item Value Reference Interpretation Comments Range Interpretation (test Negative results do not code = 3208956) preclude COVID-19 infection and should not be used asthe sole basis for treatment or other patient management decisions. Negativeresults must be combined with clinical observations, patient history, andepidemiological information. COVID-19 qualitative Not-Detected Not-Detected RT-PCR result (test code = 27164-2) COVID-19 qualitative See link below for PDF Case Number: RT-PCR (test code = Lab Report [id number] 7070) [facility] [id number] 22:09:28 Test Item Value Reference Interpretation Comments Range Interpretation (test Negative results do not code = 7862094) preclude COVID-19 infection and should not be used asthe sole basis for treatment or other patient management decisions. Negativeresults must be combined with clinical observations, patient history, andepidemiological information. COVID-19 qualitative Not-Detected Not-Detected RT-PCR result (test code = 50727-9) COVID-19 qualitative See link below for PDF Case Number: RT-PCR PDF (test Lab Report [id number] 1 code = 7070) [facility] qualitative [id number] 22:09:28 Test Item Value Reference Interpretation Comments Range Interpretation (test Negative results do not code = 9341867) preclude COVID-19 infection and should not be used asthe sole basis for treatment or other patient management decisions. Negativeresults must be combined with clinical observations, patient history, andepidemiological information. COVID-19 qualitative Not-Detected Not-Detected RT-PCR result (test code = 44192-7) COVID-19 qualitative See link below for PDF Case Number: RT-PCR PDF (test Lab Report [id number] 1 code = 7070) [facility] qualitative [id number] 22:09:28 Test Item Value Reference Interpretation Comments Range Interpretation (test Negative results do not code = 9919863) preclude COVID-19 infection and should not be used asthe sole basis for treatment or other patient management decisions. Negativeresults must be combined with clinical observations, patient history, andepidemiological information. COVID-19 qualitative Not-Detected Not-Detected RT-PCR result (test code = 10167-0) COVID-19 qualitative See link below for PDF Case Number: RT-PCR PDF (test Lab Report [id number] 1 code = 7070) [facility] qualitative [id number] 22:09:28 Test Item Value Reference Interpretation Comments Range Interpretation (test Negative results do not code = 7434994) preclude COVID-19 infection and should not be used asthe sole basis for treatment or other patient management decisions. Negativeresults must be combined with clinical observations, patient history, andepidemiological information. COVID-19 qualitative Not-Detected Not-Detected RT-PCR result (test code = 71196-9) COVID-19 qualitative See link below for PDF Case Number: RT-PCR PDF (test Lab Report [id number] 1 code = 7070) [facility] qualitative [id number] 22:09:28 Test Item Value Reference Interpretation Comments Range Interpretation (test Negative results do not code = 4950005) preclude COVID-19 infection and should not be used asthe sole basis for treatment or other patient management decisions. Negativeresults must be combined with clinical observations, patient history, andepidemiological information. COVID-19 qualitative Not-Detected Not-Detected RT-PCR result (test code = 87166-1) COVID-19 qualitative See link below for PDF Case Number: RT-PCR PDF (test Lab Report [id number] 1 code = 7070) [facility] qualitative [id number] 22:09:28 Test Item Value Reference Interpretation Comments Range Interpretation (test Negative results do not code = 9989902) preclude COVID-19 infection and should not be used asthe sole basis for treatment or other patient management decisions. Negativeresults must be combined with clinical observations, patient history, andepidemiological information. COVID-19 qualitative Not-Detected Not-Detected RT-PCR result (test code = 27761-0) COVID-19 qualitative See link below for PDF Case Number: RT-PCR PDF (test Lab Report [id number] 1 code = 7070) [facility] RNA [Presence] in Respiratory specimen by LATESHA with probe [id number] 17:09:28 Test Item Value Reference Range Interpretation Comments SARS-CoV-2 (COVID-19) RNA Not detected [Presence] in Respiratory specimen by LATESHA with probe detection (test code = 95257-3) Whether patient is employed in a Unknown healthcare setting (test code = 37840-0) Whether the patient has symptoms Unknown related to condition of interest (test code = 85730-2) Whether the patient was Unknown hospitalized for condition of interest (test code = 79289-4) Whether the patient was admitted Unknown to intensive care unit (ICU) for condition of interest (test code = 66187-9) Whether patient resides in a Unknown congregate care setting (test code = 68623-7) status (test code = Unknown 86542-8) Date and time of symptom onset Unknown (test code = 78354-7) [facility]EEV[facility]LETHINPREP TIS AND HPV mRNA [id number] 20:30:00 Test Item Value Reference Interpretation Comments Range Clinical information None gi niurka (test code = 43655-0) Date of last NONE GIVEN menstrual period (test code = 8665-2) Prev. pap: (test code NONE G IVEN = 98259-4) Prev. bx: (test code NONE GI NIURKA = 48345-2) Source (test code = None giv en ) Statement of adequacy Satisf actory for (test code = 81700-0) evalua tion.Endocervi cony/transformat ion zone componentpresen t.Age and/or menstrua l status not prov ided Interpretation/result Negati ve for : (test code = intraepitheli al 42320-5) lesion or malignancy. Comment (test code = This Pa p test has ) been evaluated with computerassiste d technology. Oil Boiler DJL, CT ( CP)CT (test code = 41184-8) screen ing location: [place] [address], [facility] 7707 2 Comment (test code = EXPLANA TORY NOTE: 2222607) The Pap is a screening test for [...] Detected Not Detected Methodo logy: code = 80068-9) Transcriptio n-Mediat ed Amplificatio n This assay [...] For additional information, pl ease refer tohttp://educat ion.[employer]/ faq/IMD159i3(Th is link if provide d for information/edu catio nal purposes on ly.) JACEK (test code = RAC) Performing Organization Information: Site ID: TIM Name: [facility] Address: [address] [place] [address] Director: Dr. Rajinder Grant Site ID: RGA Name: [facility] Address: [address] [place] [address] Director: Rajinder Grant [facility] CampusTHINPREP TIS AND HPV mRNA [id number] 20:30:00 Test Item Value Reference Interpretation Comments Range Clinical information None gi niurka (test code = 68959-2) Date of last NONE GIVEN menstrual period (test code = 8665-2) Prev. pap: (test code NONE G IVEN = 62729-4) Prev. bx: (test code NONE GI NIURKA = 89313-2) Source (test code = None giv en ) Statement of adequacy Satisf actory for (test code = 67501-5) evalua tion.Endocervi cony/transformat ion zone componentpresen t.Age and/or menstrua l status not prov ided Interpretation/result Negati ve for : (test code = intraepitheli al 70260-5) lesion or malignancy. Comment (test code = This Pa p test has ) been evaluated with computerassiste d technology. Oil Boiler SYL DUTTON ( CP)CT (test code = 06594-6) screen ing location: [address], [place] [address] 2 Comment (test code = VIRGILIO CASTELLANO NOTE: [id number]) The Pap is a screening test for [...] Detected Not Detected Methodo logy: code = 05660-5) Transcriptio n-Mediat ed Amplificatio n This assay [...] For additional information, pl ease refer tohttp://educat ion.[employer] .[employer]/ faq/IOP568v3(Th is link if provide d for information/edu catio nal purposes on ly.) RAC (test code = RAC) Performing Organization Information: Site ID: TIM Name: [facility] Address: [address] [place] [address] Director: Dr. Rajinder Grant Site ID: RGA Name: [facility] Address: [address] [place] [address] Director: Rajinder Grant [facility] CampusTHINPREP TIS AND HPV mRNA [id number] 20:30:00 Test Item Value Reference Interpretation Comments Range Clinical information None gi niurka (test code = 70219-0) Date of last NONE GIVEN menstrual period (test code = 8665-2) Prev. pap: (test code NONE G IVEN = 12007-6) Prev. bx: (test code NONE GI NIURKA = 32982-9) Source (test code = [place] 50873-1) Statement of adequacy Satisf actory for (test code = 74073-3) evalua tion.Endocervi cony/transformat ion zone componentpresen t.Age and/or menstrua l status not prov ided Interpretation/result Negati ve for : (test code = intraepitheli al 17550-5) lesion or malignancy. Comment (test code = This Pa p test has ) been evaluated with Diwaneeiste d technology. Oil Boiler DJL, CT ( CP)CT (test code = 15655-5) screen ing location: [place] [address] [address] [facility], [facility] 7[address] 2 Comment (test code = EXPLANA TORY NOTE: [id number]) The Pap is a screening test for [...] Detected Not Detected Methodo logy: code = 60018-7) Transcriptio n-Mediat ed Amplificatio n This assay [...] For additional information, pl ease refer tohttp://educat ion.[employer]/ faq/QCV017q8(Th is link if provide d for information/edu catio nal purposes on ly.) JACEK (test code = RAC) Performing Organization Information: Site ID: IG Name: [facility] Address: [address] [place] [phone] Director: Dr. Rajinder Grant Site ID: RGA Name: [facility] Address: [address] [place] [address] Director: Rajinder Grant [facility] RehabilitationTHINPREP TIS AND HPV mRNA [id number] 20:30:00 Test Item Value Reference Interpretation Comments Range Clinical information None gi niurka (test code = 48947-4) Date of last NONE GIVEN menstrual period (test code = 8665-2) Prev. pap: (test code NONE G IVEN = 64641-5) Prev. bx: (test code NONE GI NIURKA = 84681-1) Source (test code = None giv en ) Statement of adequacy Satisf actory for (test code = 83655-2) evalua tion.Endocervi cony/transformat ion zone componentpresen t.Age and/or menstrua l status not prov ided Interpretation/result Negati ve for : (test code = intraepitheli al 95995-9) lesion or malignancy. Comment (test code = This Pa p test has ) been evaluated with Diwaneeiste d technology. Oil Boiler NATO, CT ( CP)CT (test code = 39076-4) screen ing location: [address], [place] [address] Comment (test code = EXPLANA TORY NOTE: 2658660) The Pap is a screening test for [...] Detected Not Detected Methodo logy: code = 44205-7) Transcriptio n-Mediat ed Amplificatio n This assay [...] For additional information, pl ease refer tohttp://educat ion.[employer]/ faq/DUQ396o6(Th is link if provide d for information/edu catio nal purposes on ly.) RAC (test code = RAC) Performing Organization Information: Site ID: IG Name: [facility] Address: [address] [place] [address] Director: Dr. Rajinder Grant Site ID: RGA Name: [facility] Address: [address] [place] [address] Director: Rajinder Grant [facility] CampusTHINPREP TIS AND HPV mRNA [id number] 20:30:00 Test Item Value Reference Interpretation Comments Range Clinical information None gi niurka (test code = 50829-9) Date of last NONE GIVEN menstrual period (test code = 8665-2) Prev. pap: (test code NONE G IVEN = 55037-4) Prev. bx: (test code NONE GI NIURKA = 39406-2) Source (test code = None giv en 58881-3) Statement of adequacy Satisf actory for (test code = 36695-3) evalua tion.Endocervi cony/transformat ion zone componentpresen t.Age and/or menstrua l status not prov ided Interpretation/result Negati ve for : (test code = intraepitheli al 21805-6) lesion or malignancy. Comment (test code = This Pa p test has ) been evaluated with computerassiste d technology. Oil Boiler DJL, CT ( CP)CT (test code = 60194-6) screen ing location: [facility] [address] [place] [address], [place] [address] 2 Comment (test code = EXPLANA TORY NOTE: 3728983) The Pap is a screening test for [...] Detected Not Detected Methodo logy: code = 78540-9) Transcriptio n-Mediat ed Amplificatio n This assay [...] For additional information, pl ease refer tohttp://educat PayClip.[employer]/ faq/OIJ355h4(Th is link if provide d for information/edu catio nal purposes on ly.) JACEK (test code = RAC) Performing Organization Information: Site ID: IG Name: [facility] Address: [address] [place] [address] Director: Dr. Rajinder Grant Site ID: RGA Name: [facility] Address: [address] [place] [address] Director: Rajinder Grant [facility] CampusTHINPREP TIS AND HPV mRNA [id number] 20:30:00 Test Item Value Reference Interpretation Comments Range Clinical information None gi niurka (test code = 76542-6) Date of last NONE GIVEN menstrual period (test code = 8665-2) Prev. pap: (test code NONE G IVEN = 41291-0) Prev. bx: (test code NONE GI NIURKA = 86782-3) Source (test code = None giv en ) Statement of adequacy Satisf actory for (test code = 39612-0) evalua tion.Endocervi cony/transformat ion zone componentpresen t.Age and/or menstrua l status not prov ided Interpretation/result Negati ve for : (test code = intraepitheli al 50128-8) lesion or malignancy. Comment (test code = This Pa p test has ) been evaluated with computerassiste d technology. Oil Boiler NATO, CT ( CP)CT (test code = 00852-2) screen ing location: [address], [place] [address] Comment (test code = EXPLANA NONA NOTE: 8219630) The Pap is a screening test for [...] Detected Not Detected Methodo logy: code = 22899-9) Transcriptio n-Mediat ed Amplificatio n This assay [...] For additional information, pl ease refer tohttp://educat ion.[employer]/ faq/AHN274s9(Th is link if provide d for information/edu catio nal purposes on ly.) RAC (test code = RAC) Performing Organization Information: Site ID: IG Name: [facility] Address: [address] [place] [phone] Director: Dr. Rajinder Grant Site ID: RGA Name: [facility] Address: [address] [place] [address] Director: Rajinder Grant [facility] CampusTHINPREP TIS AND HPV mRNA [id number] 20:30:00 Test Item Value Reference Interpretation Comments Range Clinical information None gi niurka (test code = 70488-8) Date of last NONE GIVEN menstrual period (test code = 8665-2) Prev. pap: (test code NONE G IVEN = 67849-8) Prev. bx: (test code NONE GI NIURKA = 74430-4) Source (test code = [place] 62[address]-2) Statement of adequacy Satisf actory for (test code = 09769-2) evalua tion.Endocervi cony/transformat ion zone componentpresen t.Age and/or menstrua l status not prov ided Interpretation/result Negati ve for : (test code = intraepitheli al 73002-6) lesion or malignancy. Comment (test code = This Pa p test has ) been evaluated with Spiced Bitsassiste d technology. Oil Boiler DJL, CT ( CP)CT (test code = 67055-3) screen ing location: [place] [address] [address] [facility], [facility] 7707 2 Comment (test code = EXPLANA TORY NOTE: 9303802) The Pap is a screening test for [...] Detected Not Detected Methodo logy: code = 13486-6) Transcriptio n-Mediat ed Amplificatio n This assay [...] For additional information, pl ease refer tohttp://educat ion.[employer]/ faq/BER605e0(Th is link if provide d for information/edu catio nal purposes on ly.) JACEK (test code = RAC) Performing Organization Information: Site ID: IG Name: [facility] Address: [address] [place] [phone] Director: Dr. Rajinder Grant Site ID: RGA Name: [facility] Address: [address] [place] [address] Director: Rajinder Grant [facility] RehabilitationTHINPREP TIS AND HPV mRNA [id number] 20:30:00 Test Item Value Reference Interpretation Comments Range Clinical information None gi niurka (test code = 85934-0) Date of last NONE GIVEN menstrual period (test code = 8665-2) Prev. pap: (test code NONE G IVEN = 03685-4) Prev. bx: (test code NONE GI NIURKA = 83399-4) Source (test code = [place] 56251-5) Statement of adequacy Satisf actory for (test code = 08324-1) evalua tion.Endocervi cony/transformat ion zone componentpresen t.Age and/or menstrua l status not prov ided Interpretation/result Negati ve for : (test code = intraepitheli al 35493-0) lesion or malignancy. Comment (test code = This Pa p test has ) been evaluated with Spiced Bitsassiste d technology. Oil Boiler NATO, CT ( CP)CT (test code = 30906-5) screen ing location: [facility] [address] [place] [address], [place] [address] 2 Comment (test code = EXPLANA TORY NOTE: 9359658) The Pap is a screening test for [...] Detected Not Detected Methodo logy: code = 45383-7) Transcriptio n-Mediat ed Amplificatio n This assay [...] For additional information, pl ease refer tohttp://educat ion.[employer]/ faq/ODR230g1(Th is link if provide d for information/edu catio nal purposes on ly.) JACEK (test code = RAC) Performing Organization Information: Site ID: IG Name: [facility] Address: [address] [place] [phone] Director: Dr. Rajinedr Grant Site ID: RGA Name: [facility] Address: [address] [place] [address] Director: Rajinder Grant [facility] CampusTHINPREP TIS AND HPV mRNA [id number] 20:30:00 Test Item Value Reference Interpretation Comments Range Clinical information None gi niurka (test code = 37494-1) Date of last NONE GIVEN menstrual period (test code = 8665-2) Prev. pap: (test code NONE G IVEN = 17539-5) Prev. bx: (test code NONE GI NIURKA = 66916-1) Source (test code = None giv en ) Statement of adequacy Satisf actory for (test code = 84648-4) evalua tion.Endocervi cony/transformat ion zone componentpresen t.Age and/or menstrua l status not prov ided Interpretation/result Negati ve for : (test code = intraepitheli al 82490-1) lesion or malignancy. Comment (test code = This Pa p test has ) been evaluated with computerassiste d technology. Oil Boiler NATO, CT ( CP)CT (test code = 45905-4) screen ing location: [facility] [address] [place] [address], [place] [address] 2 Comment (test code = EXPLANA TORY NOTE: 3483609) The Pap is a screening test for [...] Detected Not Detected Methodo logy: code = 02737-1) Transcriptio n-Mediat ed Amplificatio n This assay [...] For additional information, pl ease refer tohttp://educat ion.[employer]/ faq/MJE835i2(Th is link if provide d for information/edu catio nal purposes on ly.) JACEK (test code = RAC) Performing Organization Information: Site ID: IG Name: [facility] Address: [address] [place] [phone] Director: Dr. Rajinder Grant Site ID: RGA Name: [facility] Address: [address] [place] [address] Director: Rajinder Grant [facility] CampusTHINPREP TIS AND HPV mRNA [id number] 20:30:00 Test Item Value Reference Interpretation Comments Range Clinical information None gi niurka (test code = 51691-2) Date of last NONE GIVEN menstrual period (test code = 8665-2) Prev. pap: (test code NONE G IVEN = 81687-6) Prev. bx: (test code NONE GI NIURKA = 57504-7) Source (test code = None [place] en 81306-3) Statement of adequacy Satisf actory for (test code = 59311-3) evalua tion.Endocervi cony/transformat ion zone componentpresen t.Age and/or menstrua l status not prov ided Interpretation/result Negati ve for : (test code = intraepitheli al 37572-0) lesion or malignancy. Comment (test code = This Pa p test has ) been evaluated with computerassiste d technology. Oil Boiler SYL DUTTON ( CP)CT (test code = 02290-9) screen ing location: [facility] [address] [place] [address], [place] [address] 2 Comment (test code = MARYURIA NONA NOTE: 9019337) The Pap is a screening test for [...] Detected Not Detected Methodo logy: code = 49794-1) Transcriptio n-Mediat ed Amplificatio n This assay [...] For additional information, pl ease refer tohttp://educat ion.[employer] .[employer]/ faq/KQN296y8(Th is link if provide d for information/edu catio nal purposes on ly.) RAC (test code = RAC) Performing Organization Information: Site ID: IG Name: [facility] Address: [address] [place] [phone] Director: Dr. Rajinder Grant Site ID: RGA Name: [facility] Address: [address] [place] [address] Director: Rajinder Grant [facility] CampusTHINPREP TIS AND HPV mRNA [id number] 20:30:00 Test Item Value Reference Interpretation Comments Range Clinical information None gi niurka (test code = 89893-4) Date of last NONE GIVEN menstrual period (test code = 8665-2) Prev. pap: (test code NONE G IVEN = 49138-6) Prev. bx: (test code NONE GI NIURKA = 39308-1) Source (test code = [place] [address]277-8) Statement of adequacy Satisf actory for (test code = 26637-2) evalua tion.Endocervi cony/transformat ion zone componentpresen t.Age and/or menstrua l status not prov ided Interpretation/result Negati ve for : (test code = intraepitheli al 80423-0) lesion or malignancy. Comment (test code = This Pa p test has ) been evaluated with Spiced Bitsassiste d technology. Oil Boiler DJL, CT ( CP)CT (test code = 24390-5) screen ing location: [place] [address] [address] [facility] [address], [facility] 7[address] 2 Comment (test code = EXPLANA TORY NOTE: 0829230) The Pap is a screening test for [...] Detected Not Detected Methodo logy: code = 43935-5) Transcriptio n-Mediat ed Amplificatio n This assay [...] For additional information, pl ease refer tohttp://educat ion.[employer]/ faq/YLV988w9(Th is link if provide d for information/edu catio nal purposes on ly.) JACEK (test code = RAC) Performing Organization Information: Site ID: IG Name: [facility] Address: [address] [place] [address] Director: Dr. Rajinder Grant Site ID: RGA Name: [facility] Address: [address] [place] [address] Director: Rajinder AlvarezKessler Institute for RehabilitationTHINPREP TIS AND HPV mRNA [id number] 20:30:00 Test Item Value Reference Interpretation Comments Range Clinical information None gi niurka (test code = 23980-1) Date of last NONE GIVEN menstrual period (test code = 8665-2) Prev. pap: (test code NONE G IVEN = 40641-5) Prev. bx: (test code NONE GI NIURKA = 45952-4) Source (test code = [place] 41576-9) Statement of adequacy Satisf actory for (test code = 74317-0) evalua tion.Endocervi cony/transformat ion zone componentpresen t.Age and/or menstrua l status not prov ided Interpretation/result Negati ve for : (test code = intraepitheli al 32689-1) lesion or malignancy. Comment (test code = This Pa p test has ) been evaluated with Spiced Bitsassiste d technology. Oil Boiler NATO CT ( CP)CT (test code = 71340-6) screen ing location: [address], [place] [address] Comment (test code = EXPLANA TORY NOTE: 6692437) The Pap is a screening test for [...] Detected Not Detected Methodo logy: code = 31466-9) Transcriptio n-Mediat ed Amplificatio n This assay [...] For additional information, pl ease refer tohttp://educat ion.[employer] .[employer]/ faq/JTH819k8(Th is link if provide d for information/edu catio nal purposes on ly.) JACEK (test code = RAC) Performing Organization Information: Site ID: IG Name: [facility] Address: [address] [place] [phone] Director: Dr. Rajinder Grant Site ID: RGA Name: [facility] Address: [address] [place] [address] Director: Rajinder Grant [facility] CampusTHINPREP TIS AND HPV mRNA [id number] 20:30:00 Test Item Value Reference Interpretation Comments Range Clinical information None gi niurka (test code = 23302-6) Date of last NONE GIVEN menstrual period (test code = 8665-2) Prev. pap: (test code NONE G IVEN = 12790-5) Prev. bx: (test code NONE GI NIURKA = 91105-5) Source (test code = [place] 24902-5) Statement of adequacy Satisf actory for (test code = 35901-4) evalua tion.Endocervi cony/transformat ion zone componentpresen t.Age and/or menstrua l status not prov ided Interpretation/result Negati ve for : (test code = intraepitheli al 19909-6) lesion or malignancy. Comment (test code = This Pa p test has ) been evaluated with computerassiste d technology. Oil Boiler DJL, CT ( CP)CT (test code = 20219-3) screen ing location: [facility] [address] [place] [address], [place] [address] 2 Comment (test code = EXPLANA TORY NOTE: 7285165) The Pap is a screening test for [...] Detected Not Detected Methodo logy: code = 50765-2) Transcriptio n-Mediat ed Amplificatio n This assay [...] For additional information, pl ease refer tohttp://educat ion.[employer]/ faq/TQE105c4(Th is link if provide d for information/edu catio nal purposes on ly.) RAC (test code = RAC) Performing Organization Information: Site ID: IG Name: [facility] Address: [address] [place] [address] Director: Dr. Rajinder Grant Site ID: RGA Name: [facility] Address: [address] [place] [address] Director: Rajinder Grant [address]2022-09-01 18:14:37 Test Item Value Reference Range Interpretation Comments Ventricular rate (test code = 253) Atrial rate (test code = 255) MT interval (test code = 266) QRSD interval [...] of 07-NOV-2021 12:57,-No significant change was found- [address]2022-09-01 18:14:37 Test Item Value Reference Range Interpretation Comments Ventricular rate (test code = 253) Atrial rate (test code = 255) MT interval (test code = 266) QRSD interval [...] of 07-NOV-2021 12:57,-No significant change was found- [facility] 12 [id number] 18:14:37 Test Item Value Reference Range Interpretation Comments Ventricular rate (test code = 253) Atrial rate (test code = 255) MT interval (test code = 266) QRSD interval [...] of 07-NOV-2021 12:57,-No [facility] [Presence] in Respiratory specimen by LATESHA with probe [id number] 21:57:49 Test Item Value Reference Range Interpretation Comments SARS-CoV-2 (COVID-19) RNA [Presence] Detected in Respiratory specimen by LATESHA with probe detection (test code = 94599-7) Whether patient is employed in a Unknown healthcare setting (test code = 29809-0) Whether the patient has symptoms Unknown related to condition of interest (test code = 72873-5) Whether the patient was hospitalized Unknown for condition of interest (test code = 37478-4) Whether the patient was admitted to Unknown intensive care unit (ICU) for condition of interest (test code = 81771-7) Whether patient resides in a Unknown congregate care setting (test code = 06149-6) status (test code = Unknown 97655-4) Date and time of symptom onset (test Unknown code = 89582-4) [facility] function [id number] 18:40:00 Test Item Value Reference Range Interpretation [...] RAC) Organization Information: Site ID: RGA Name: [facility] Address: [address] [place] [address] Director: Rajinder Grant [facility] CampusHepatic function [id number] 18:40:00 Test Item Value Reference Range Interpretation [...] RAC) Organization Information: Site ID: RGA Name: [facility] Address: [address] [place] [address] Director: Rajinder MedinaCleveland Clinic Mercy HospitalHepatic function [id number] 18:40:00 Test Item Value Reference Range Interpretation [...] RAC) Organization Information: Site ID: RGA Name: [facility] Address: [address] [place] [phone] Director: Rajinder LamarMagruder HospitalHepatic function [id number] 18:40:00 Test Item Value Reference Range Interpretation [...] 6768-6) AST (test code = 13 U/L 1035 0-8) ALT (test code = 14 U/L 10-082-6) WILDA (test code = FASTING: UNKNOWN WILDA) RAC (test code = Performing RAC) Organization Information: Site ID: RGA Name: [facility] Address: [address] [place] [address] Director: [facility] HospitalHepatic function [id number] 18:40:00 Test Item Value Reference Range Interpretation [...] RAC) Organization Information: Site ID: RGA Name: [facility] Address: [address] [place] [phone] Director: Rajinder Grant [facility] CampusHepatic function [id number] 18:40:00 Test Item Value Reference Range Interpretation [...] RAC) Organization Information: Site ID: RGA Name: [facility] Address: [address] [place] [phone] Director: Rajinder WardSt. Anthony's HospitalHepatic function [id number] 18:40:00 Test Item Value Reference Range Interpretation [...] 1919-11) ALT (test code = 14 U/L 6-29 1742-6) WILDA (test code = FASTING: UNKNOWN WILDA) RAC (test code = Performing RAC) Organization Information: Site ID: KATERINA Name: [facility] Address: [address] [place] [address] Director: Hammond Girma WardSan JoseSt. Anthony's HospitalHepatic function [id number] 18:40:00 Test Item Value Reference Range Interpretation [...] RAC) Organization Information: Site ID: RGA Name: [facility] Address: [address] [place] [address] Director: Rajinder LamarMagruder HospitalHepatic function [id number] 18:40:00 Test Item Value Reference Range Interpretation [...] RAC) Organization Information: Site ID: RGA Name: [facility] Address: [address] [place] [address] Director: Rajinder LamarMagruder HospitalHepatic function [id number] 18:40:00 Test Item Value Reference Range Interpretation [...] RAC) Organization Information: Site ID: RGA Name: [facility] Address: [address] [place] [address] Director: Rajinder Grant [facility] CampusHep[facility] function [id number] 18:40:00 Test Item Value Reference Range Interpretation [...] RAC) Organization Information: Site ID: RGA Name: [facility] Address: [address] [place] [address] Director: Rajinder MartínezARS-CoV-2 (COVID-19) RNA [Presence] in Respiratory specimen by LATESHA with probe [id number] 20:46:09 Test Item Value Reference Range Interpretation Comments SARS-CoV-2 (COVID-19) RNA Not detected [Presence] in Respiratory specimen by LATESHA with probe detection (test code = 31696-7) Whether patient is employed in a Unknown healthcare setting (test code = 06512-4) Whether the patient has symptoms Unknown related to condition of interest (test code = 57875-1) Whether the patient was Unknown hospitalized for condition of interest (test code = 91982-2) Whether the patient was admitted Unknown to intensive care unit (ICU) for condition of interest (test code = 72417-1) Whether patient resides in a Unknown congregate care setting (test code = 41654-4) status (test code = Unknown 45678-2) Date and time of symptom onset Unknown (test code = 49157-4) [facility] [id number] 05:23:00 Test Item Value Reference Range Interpretation Comments TSH (test code mIU/L Reference Ra nge > = 3016-3) or = 20 Years 0.40-4.50 Range s First trimester 0.26-2.66 Secon d trimester 0.55-2.73 Third trimester 0.43-2.91 RAC (test code Performing = RAC) Organization Information: Site ID: RGA Name: [facility] Address: [address] [place] [address] Director: Hammond Girma LamarRudyUCLA [facility]22-[facility] 05:23:00 Test Item Value Reference Range Interpretation Comments TSH (test code mIU/L Reference Ra nge > = 3016-3) or = 20 Years 0.40-4.50 Range s First trimester 0.26-2.66 Secon d trimester 0.55-2.73 Third trimester 0.43-2.91 RAC (test code Performing = RAC) Organization Information: Site ID: RGA Name: [facility] Address: [address] [place] [address] Director: [facility]2022-[facility]-11 05:23:00 Test Item Value Reference Range Interpretation Comments TSH (test code mIU/L Reference Ra nge > = 3016-3) or = 20 Years 0.40-4.50 Range s First trimester 0.26-2.66 Secon d trimester 0.55-2.73 Third trimester 0.43-2.91 RAC (test code Performing = RAC) Organization Information: Site ID: RGA Name: [facility] Address: [address] [place] [address] Director: Rajinder Grant [facility]2022-06-11 05:23:00 Test Item Value Reference Range Interpretation Comments TSH (test code mIU/L Reference Ra nge > = 3016-3) or = 20 Years 0.40-4.50 Range s First trimester 0.26-2.66 Secon d trimester 0.55-2.73 Third trimester 0.43-2.91 RAC (test code Performing = RAC) Organization Information: Site ID: RGA Name: [facility] Address: [address] [place] [address] Director: Rajinder Grant [facility]2022-06-11 05:23:00 Test Item Value Reference Range Interpretation Comments TSH (test code mIU/L Reference R paris = 3016-3) > or = 20 Years 0.40-4.50 Range s First trimester 0.26-2.66 Secon d trimester 0.55-2.73 Thir d trimester 0.43-2.91 RAC (test code Performing = RAC) Organization Information: Site ID: A Name: [facility] Address: [address] [place] [address] Director: Rajinder [facility]iddMem[facility] [id number] 05:23:00 Test Item Value Reference Range Interpretation Comments TSH (test code mIU/L Reference R paris = 3016-3) > or = 20 Years 0.40-4.50 Range s First trimester 0.26-2.66 Secon d trimester 0.55-2.73 Thir d trimester 0.43-2.91 RAC (test code Performing = RAC) Organization Information: Site ID: RGA Name: [facility] Address: [address] [place] [address] Director: Rajinder Grant [facility] [id number] 05:23:00 Test Item Value Reference Range Interpretation Comments TSH (test code 1.97 mIU/L Reference R paris = 3016-3) > or = 20 Years 0.40-4.50 Range s First trimester 0.26-2.66 Secon d trimester 0.55-2.73 Thir d trimester 0.43-2.91 RAC (test code Performing = RAC) Organization Information: Site ID: A Name: [facility] Address: [address] [place] [address] Director: Rajinder LamarMagruder HospitalThyroid stimulating [id number] 05:23:00 Test Item Value Reference Range Interpretation Comments TSH (test code 1.97 mIU/L Reference R paris = 3016-3) > or = 20 Years 0.40-4.50 Range s First trimester 0.26-2.66 Secon d trimester 0.55-2.73 Thir d trimester 0.43-2.91 RAC (test code Performing = RAC) Organization Information: Site ID: RGA Name: [facility] Address: [address] [place], [place] [phone] Director: Rajinder LamarLouis Stokes Cleveland VA Medical Centerroid stimulating [id number] 05:23:00 Test Item Value Reference Range Interpretation Comments TSH (test code 1.97 mIU/L Reference R paris = 3016-3) > or = 20 Years 0.40-4.50 Range s First trimester 0.26-2.66 Secon d trimester 0.55-2.73 Thir d trimester 0.43-2.91 RAC (test code Performing = RAC) Organization Information: Site ID: A Name: [employer] [facility] Address: [address] [place] [address] Director: Rajinder Grant [facility]roid stimulating [id number] 05:23:00 Test Item Value Reference Range Interpretation Comments TSH (test code 1.97 mIU/L Reference R paris = 3016-3) > or = 20 Years 0.40-4.50 Range s First trimester 0.26-2.66 Secon d trimester 0.55-2.73 Thir d trimester 0.43-2.91 RAC (test code Performing = RAC) Organization Information: Site ID: RGA Name: [facility] Address: [address] [place] [address] Director: Rajinder Grant [facility] CampusUA RFLX MICR CULT IF [id number] 18:48:00 Test Item Value Reference Range Interpretation [...] LACT) 0.7 mmol/L 0.7-2.0 N LIVER FUNCTION [id number] 15:14:00 Test Item Value Reference Range Interpretation [...] U/L 38-126 N (test code = ALKP) [id number] 15:14:00 Test Item Value Reference Range Interpretation [...] ~~~~~~~~~~~~ ~~~~~~~~~~~~~~~ ~~~~~~~~~~~~ ~~~~~~~~~~~~~~~ ~ BASIC METABOLIC [id number] 15:14:00 Test Item Value Reference Range Interpretation [...] = HEMINDEX) - CT ABD PELVIS W/O [id number] 14:53:00 [facility] : 1970 Sex: F FAX: Debo Gutierrez [place]: St: REG Name: HERSON JACKSON : 1970 Age/S: 51/F [address] Unit: [id number] Loc: [place] [address] Phys: Debo Gutierrez Acct: [id number] Dis Date: Status: REG ER PHONE #: [phone] Exam Date: 08/08/2021 0070 FAX #: [phone] Reason: flank pain EXAMS: CPT CODE: [id number] CT ABD PELVIS W/O CONT 60203 EXAM: CT abdomen and pelvis without contrast [...] PAGE 1Signed Report (CONTINUED) FAX: Debo Gutierrez [place]: St: REG Name: HERSON JACKSON : 1970 Age/S: 51/F [address] Unit: [id number] Loc: [place] [address] Phys: Debo Gutierrez Acct: [id number] Dis Date: Status: REG ER PHONE #: [phone] Exam Date: 08/08/2021 1435 FAX #: [phone] Reason: flank pain EXAMS: CPT CODE: [id number] CT ABD PELVIS W/O CONT 06069 (Continued)nephrolithiasis . Evaluation of the bladder is [...] inflammatory disease. RECOMMENDATIONS: None. Internal Codingonly:B3 at 1453 Reported and signed by: Sandro Molina MD PAGE 2 Signed Report (CONTINUED) FAX: Debo Gutierrez [place]: St: REG Name: HERSON JACKSON : 1970 Age/S: 51/F [address] Unit: [id number] Loc: [place] [address] Phys: Debo Gutierrez Acct: [id number] Dis Date: Status: REG ER PHONE #: [phone] Exam Date: 2 3895 FAX #: [phone] Reason: flank pain EXAMS: CPT CODE: [id number] CT ABD PELVIS W/O CONT 27856 (Continued) CC: Debo Gutierrez Technologist: Debo Ortiz; SCOTT SORIANO; DIANE BENAVIDES Trnscrd Dt/Tm: 08/08/2021 (1453) [email or web address] Orig Print D/T: S: 08/08/2021 (1456 PAGE 3 Signed ReportCBC W/AUTO [id number] 14:21:00 Test Item Value Reference Range Interpretation [...] 3/uL 0.0-0.1 N - XR CHEST 1 [id number] 13:50:00 [facility] : 1970 Sex: F FAX: Debo Gutierrez [place]: St: PRE Name: HERSON JACKSON : 1970 Age/S: 51/F [address] Unit #: [id number] Loc: [place] [address] Phys: Debo Gutierrez Acct: [id number] Dis Date: Status: PRE ER PHONE #: [phone] Exam Date: 08/08/2021 1340 FAX #: [phone] Reason: CODE SEPSIS EXAMS: CPT CODE: [id number] XR CHEST 1 V 07177 CHEST 1 VIEW: INDICATION: CODE SEPSIS COMPARISON: [...] NAY GILLIS; STUDENT 2ND YEARTrnscrd Date/Time/By: 08/08/2021 (1350) : By: [email or web address] PAGE 1 Signed Report FAX: Debo Gutierrez [place]: St: PRE -- Name: HERSON JACKSON : 1970 Age/S: 51/F [address] Unit #: [id number] Loc: [place] [address] Phys: Debo Gutierrez Acct: [id number] Dis Date: Status: PRE ER PHONE #: [phone] Exam Date: 08/08/2021 1340 FAX #: [phone] Reason: CODE SEPSIS EXAMS: CPT CODE: [id number] XR CHEST 1 V 16740 (Continued) Orig Print D/T: S: 08/08/2021 (2104) PAGE 2 Signed ReportTHINPREP TIS PAP AND HPV mRNA E6/E7 REFLEX HPV 16,18/45 2021-06-19 18:43:00 Test Item Value Reference Interpretation Comments Range Clinical information None gi niurka (test code = 34583-1) Date of last NONE GIVEN menstrual period (test code = 8665-2) Prev. pap: (test code NONE G IVEN = 72581-9) Prev. bx: (test code NONE GI NIURKA = 25744-0) Source (test code = None giv en ) Statement of adequacy Satisf actory for (test code = 37969-1) evalua tion.Endocervi cony/transformat ion zone componentpresen t.Age and/or menstrua l status not prov ided Interpretation/result Negati ve for : (test code = intraepitheli al 42705-7) lesion or malignancy. Comment (test code = This Pa p test has ) been evaluated with computerassiste d technology. Review PMT, CT(ASCP)CT registered public health nurse screening l ocation: (test code = 42482-3) [facility] [address], [facility] [address] Comment (test code = EXPLANA TORY NOTE: 5058853) The Pap is a screening test for [...] Detected Not Detected Methodo logy: code = 56743-2) Transcriptio n-Mediat ed Amplificatio n This assay dete cts E6/E7 viral messenger RNA ( mRNA) from 14high-ris k HPV types (16,18,31,33,35 ,39,4 5,51,52,56,58,5 9,66, 68). The analyt ical performance characteristics of thisassay have been determined by [employer].The modifications h ave not been cleare d or approvedby the FDA. This assay has been validated pursu antto the CLIA regula tions and is used forclinical purposes. For additional information, pl ease refer tohttp://educat ion.[employer] .[employer]/ faq/TZC756h6(Th is link if provide d for information/edu catio nal purposes on ly.) JACEK (test code = RAC) Performing Organization Information: Site ID: IG Name: [facility] Address: [address] [place] [address] Director: Dr. Rajinder Grant Site ID: RGA Name: [facility] Address: [address] [place] [address] Director: Rajindre Grant [facility] CampusTHINPREP TIS PAP AND HPV mRNA E6/E7 REFLEX HPV 16,18/45 2021-06-19 18:43:00 Test Item Value Reference Interpretation Comments Range Clinical information None gi niurka (test code = 75200-2) Date of last NONE GIVEN menstrual period (test code = 8665-2) Prev. pap: (test code NONE G IVEN = 58331-6) Prev. bx: (test code NONE GI NIURKA = 52041-2) Source (test code = [place] giv [place] 75925-9) Statement of adequacy Satisf actory for (test code = 70912-3) evalua tion.Endocervi cony/transformat ion zone componentpresen t.Age and/or menstrua l status not prov ided Interpretation/result Negati ve for : (test code = intraepitheli al 71962-9) lesion or malignancy. Comment (test code = This Pa p test has ) been evaluated with computerassiste d technology. Review PMT, CT(ASCP)CT registered public health nurse screening l ocation: (test code = 37251-0) [employer] [address], [place] [address] Comment (test code = EXPLANA TORY NOTE: 8858054) The Pap is a screening test for [...] Detected Not Detected Methodo logy: code = 02770-0) Transcriptio n-Mediat ed Amplificatio n This assay dete cts E6/E7 viral messenger RNA ( mRNA) from 14high-ris k HPV types (16,18,31,33,35 ,39,4 5,51,52,56,58,5 9,66, 68). The analyt ical performance characteristics of thisassay have been determined by [employer].The modifications h ave not been cleare d or approvedby the FDA. This assay has been validated pursu antto the CLIA regula tions and is used forclinical purposes. For additional information, pl ease refer tohttp://educat ion.[employer]/ faq/ZOH415k8(Th is link if provide d for information/edu catio nal purposes on ly.) JACEK (test code = RAC) Performing Organization Information: Site ID: IG Name: [facility] Address: [address] [place] [address] Director: Dr. Rajinder Grant Site ID: RGA Name: [facility] Address: [address] [place] [address] Director: Rajinder Grant [facility] CampusTHINPREP TIS PAP AND HPV mRNA E6/E7 REFLEX HPV 16,18/45 2021-06-19 18:43:00 Test Item Value Reference Interpretation Comments Range Clinical information None gi niurka (test code = 97159-5) Date of last NONE GIVEN menstrual period (test code = 8665-2) Prev. pap: (test code NONE G IVEN = 84278-7) Prev. bx: (test code NONE GI NIURKA = 69525-5) Source (test code = None giv en ) Statement of adequacy Satisf actory for (test code = 10602-3) evalua tion.Endocervi cony/transformat ion zone componentpresen t.Age and/or menstrua l status not prov ided Interpretation/result Negati ve for : (test code = intraepitheli al 59473-9) lesion or malignancy. Comment (test code = This Pa p test has ) been evaluated with computerassiste d technology. Review PMT, CT(ASCP)CT registered public health nurse screening l ocation: (test code = 12406-8) [employer] [address], [place] [address] Comment (test code = EXPLANA TORDeloris NOTE: 7846860) The Pap is a screening test for [...] Detected Not Detected Methodo logy: code = 39697-0) Transcriptio n-Mediat ed Amplificatio n This assay dete cts E6/E7 viral messenger RNA ( mRNA) from 14high-ris k HPV types (16,18,31,33,35 ,39,4 5,51,52,56,58,5 9,66, 68). The analyt ical performance characteristics of thisassay have been determined by [employer].The modifications h ave not been cleare d or approvedby the FDA. This assay has been validated pursu antto the CLIA regula tions and is used forclinical purposes. For additional information, pl ease refer tohttp://educat ion.[employer] .[employer]/ faq/WYN475y4(Th is link if provide d for information/edu catio nal purposes on ly.) JACEK (test code = RAC) Performing Organization Information: Site ID: IG Name: [facility] Address: [address] [place] [address] Director: Dr. Rajinder Grant Site ID: RGA Name: [facility] Address: [address] [place] [address] Director: Rajinder L [facility]TH[facility] AND HPV mRNA E6/E7 REFLEX HPV 16,18/45 2021-06-19 18:43:00 Test Item Value Reference Interpretation Comments Range Clinical information None gi niurka (test code = 06137-4) Date of last NONE GIVEN menstrual period (test code = 8665-2) Prev. pap: (test code NONE G IVEN = 10307-4) Prev. bx: (test code NONE GI NIURKA = 25021-1) Source (test code = None giv en ) Statement of adequacy Satisf actory for (test code = 46212-3) evalua tion.Endocervi cony/transformat ion zone componentpresen t.Age and/or menstrua l status not prov ided Interpretation/result Negati ve for : (test code = intraepitheli al 17827-3) lesion or malignancy. Comment (test code = This Pa p test has ) been evaluated with computerassiste d technology. Review PMT, CT(ASCP)CT registered public health nurse screening l ocation: (test code = 11481-8) [facility] [address], [facility] [address] Comment (test code = EXPLANA TORY NOTE: 4841980) The Pap is a screening test for [...] Detected Not Detected Methodo logy: code = 20266-9) Transcriptio n-Mediat ed Amplificatio n This assay dete cts E6/E7 viral messenger RNA ( mRNA) from 14high-ris k HPV types (16,18,31,33,35 ,39,4 5,51,52,56,58,5 9,66, 68). The analyt ical performance characteristics of thisassay have been determined by [employer].The modifications h ave not been cleare d or approvedby the FDA. This assay has been validated pursu antto the CLIA regula tions and is used forclinical purposes. For additional information, pl ease refer tohttp://educat ion.[employer] .[employer]/ faq/SBM103n8(Th is link if provide d for information/edu catio nal purposes on ly.) RAC (test code = RAC) Performing Organization Information: Site ID: IG Name: [facility] Address: [address] [place] [address] Director: Dr. Rajinder Grant Site ID: RGA Name: [facility] Address: [address] [place] [address] Director: Rajinder Grant [facility] CampusTHINPREP TIS PAP AND HPV mRNA E6/E7 REFLEX HPV 16,18/45 2021-06-19 18:43:00 Test Item Value Reference Interpretation Comments Range Clinical information None gi niurka (test code = 38759-2) Date of last NONE GIVEN menstrual period (test code = 8665-2) Prev. pap: (test code NONE G IVEN = 14808-6) Prev. bx: (test code NONE GI NIURKA = 35704-5) Source (test code = [place] [address]-9) Statement of adequacy Satisf actory for (test code = 44379-0) evalua tion.Endocervi cony/transformat ion zone componentpresen t.Age and/or menstrua l status not prov ided Interpretation/result Negati ve for : (test code = intraepitheli al 82362-1) lesion or malignancy. Comment (test code = This Pa p test has ) been evaluated with computerassiste d technology. Review PMT, CT(ASCP)CT registered public health nurse screening l ocation: (test code = 82597-3) [employer] [address], [facility] [address] Comment (test code = EXPLANA TORY NOTE: 4780615) The Pap is a screening test for [...] Detected Not Detected Methodo logy: code = 73943-4) Transcriptio n-Mediat ed Amplificatio n This assay dete cts E6/E7 viral messenger RNA ( mRNA) from 14high-ris k HPV types (16,18,31,33,35 ,39,4 5,51,52,56,58,5 9,66, 68). The analyt ical performance characteristics of thisassay have been determined by [employer].The modifications h ave not been cleare d or approvedby the FDA. This assay has been validated pursu antto the CLIA regula tions and is used forclinical purposes. For additional information, pl ease refer tohttp://educat ion.[employer]/ faq/THR262p6(Th is link if provide d for information/edu catio nal purposes on ly.) JACEK (test code = RAC) Performing Organization Information: Site ID: TIM Name: [facility] Address: [address] [place] [address] Director: Dr. Rajindre Grant Site ID: RGA Name: [facility] Address: [address] [place] [address] Director: Rajinder Grant [facility] CampusTHINPREP TIS PAP AND HPV mRNA E6/E7 REFLEX HPV 16,18/45 2021-06-19 18:43:00 Test Item Value Reference Interpretation Comments Range Clinical information None gi niurka (test code = 09126-4) Date of last NONE GIVEN menstrual period (test code = 8665-2) Prev. pap: (test code NONE G IVEN = 03704-4) Prev. bx: (test code NONE GI NIURKA = 00837-1) Source (test code = None giv en ) Statement of adequacy Satisf actory for (test code = ) evalua tion.Endocervi cony/transformat ion zone componentpresen t.Age and/or menstrua l status not prov ided Interpretation/result Negati ve for : (test code = intraepitheli al 86117-6) lesion or malignancy. Comment (test code = [place] [address]-7) been evaluated with computerassiste d technology. Review PMT, CT(ASCP)CT registered public health nurse screening l ocation: (test code = 69957-8) [address], [place] [address] 2 Comment (test code = VIRGILIO CASTELLANO NOTE: 2449274) The Pap is a screening test for [...] Detected Not Detected Methodo logy: code = 66747-4) Transcriptio n-Mediat ed Amplificatio n This assay dete cts E6/E7 viral messenger RNA ( mRNA) from 14high-ris k HPV types (16,18,31,33,35 ,39,4 5,51,52,56,58,5 9,66, 68). The analyt ical performance characteristics of thisassay have been determined by [employer].The modifications h ave not been cleare d or approvedby the FDA. This assay has been validated pursu antto the CLIA regula tions and is used forclinical purposes. For additional information, pl ease refer tohttp://educat ion.[employer] .[employer]/ faq/ZPL571r1(Th is link if provide d for information/edu catio nal purposes on ly.) JACEK (test code = RAC) Performing Organization Information: Site ID: IG Name: [facility] Address: [address] [place] [address] Director: Dr. Rajinder Grant Site ID: RGA Name: [facility] Address: [address] [place] [address] Director: Rajinder Grant [facility] CampusTHINPREP TIS PAP AND HPV mRNA E6/E7 REFLEX HPV 16,18/45 2021-06-19 18:43:00 Test Item Value Reference Interpretation Comments Range Clinical information None gi niurka (test code = 78626-7) Date of last NONE GIVEN menstrual period (test code = 8665-2) Prev. pap: (test code NONE G IVEN = 69905-1) Prev. bx: (test code NONE GI NIURKA = 85404-5) Source (test code = None giv en ) Statement of adequacy Satisf actory for (test code = 40818-3) evalua tion.Endocervi cony/transformat ion zone componentpresen t.Age and/or menstrua l status not prov ided Interpretation/result Negati ve for : (test code = intra[place] 73598-8) lesion or malignancy. Comment (test code = This Pa p test has ) been evaluated with [employer] technology. Review PMT, CT(ASCP)CT registered public health nurse screening l ocation: (test code = 81563-0) [facility] [address], [facility] [phone] Comment (test code = EXPLANA TORY NOTE: 3778626) The Pap is a screening test for [...] Detected Not Detected Methodo logy: code = 21176-7) Transcriptio n-Mediat ed Amplificatio n This assay dete cts E6/E7 viral messenger RNA ( mRNA) from 14high-ris k HPV types (16,18,31,33,35 ,39,4 5,51,52,56,58,5 9,66, 68). The analyt ical performance characteristics of thisassay have been determined by [employer].The modifications h ave not been cleare d or approvedby the FDA. This assay has been validated pursu antto the CLIA regula tions and is used forclinical purposes. For additional information, pl ease refer tohttp://educat ion.rippl[employer] inc .Intigua/ faq/HSL573m2(Th is link if provide d for information/edu catio nal purposes on ly.) RAC (test code = RAC) Performing Organization Information: Site ID: IG Name: [facility] Address: [address] [place] [address] Director: Dr. Rajinder Grant Site ID: RGA Name: [facility] Address: [address] [place] [address] Director: Rajinder Grant [facility], [facility]PLETE, WITH REFLEX TO [id number] 09:37:00 Test Item Value Reference Interpretation Comments Range Color, UA (test code YELLOW YELLOW = 5778-6) Appearance (test CLEAR CLEAR code = 5767-9) Specific gravity, 1.001-1.035 urine (test code = 5811-5) pH, urine (test code 5.0-8.0 = 5803-2) Glucose, urine (test NEGATIVE NEGATIVE code = 33570-0) Bilirubin, UA (test NEGATIVE NEGATIVE code = 5770-3) Ketones, UA (test NEGATIVE NEGATIVE code = 2514-8) Occult blood, urine NEGATIVE NEGATIVE (test code = 5794-3) Protein, UA (test NEGATIVE NEGATIVE code = 92236-4) Nitrite, UA (test NEGATIVE NEGATIVE code = [...] code = NONE SEEN See_Comment [Autom ated 19424-6) message] The sy stem which generated this result transmitted reference range : < OR = 2 /HPF. Th e reference range was not used to interpret this result as normal/abnormal . Squamous epithelial NONE SEEN See_Comment [Automa aydin cells, UA (test code message ] The system = 81354-1) which generated this result transmitted reference range [...] URINE, code = 630-4) ROUTINE Micro Number: [id number] Test Status: Fi nal Specimen Source [...] RAC) Organization Information: Site ID: RGA [facility]: [facility] Address: [address] [place] [address] Director: Rajinder Grant Lab Interpretation Abnormal (test code = 58974-1) [facility], [facility]PLETE, WITH REFLEX TO [id number] 09:37:00 Test Item Value Reference Interpretation Comments Range Color, UA (test code YELLOW YELLOW = 5778-6) Appearance (test CLEAR CLEAR code = 5767-9) Specific gravity, 1.001-1.035 urine (test code = 5811-5) pH, urine (test code 5.0-8.0 = 5803-2) Glucose, urine (test NEGATIVE NEGATIVE code = 45359-6) Bilirubin, UA (test NEGATIVE NEGATIVE code = 5770-3) Ketones, UA (test NEGATIVE NEGATIVE code = 2514-8) Occult blood, urine NEGATIVE NEGATIVE (test code = 5794-3) Protein, UA (test NEGATIVE NEGATIVE code = 32067-0) Nitrite, UA (test NEGATIVE NEGATIVE code = [...] code = NONE SEEN See_Comment [Autom ated 87777-7) message] The sy stem which generated this result transmitted reference range : < OR = 2 /HPF. Th e reference range was not used to interpret this result as normal/abnormal . Squamous epithelial NONE SEEN See_Comment [Automa aydin cells, UA (test code message ] The system = 76912-3) which generated this result transmitted reference range [...] URINE, code = 630-4) ROUTINE Micro Number: [id number] Test Status: Fi nal Specimen Source [...] RAC) Organization Information: Site ID: RGA [facility] Address: [address] [place] [address] Director: Rajinder Grant Lab Interpretation Abnormal (test code = 32989-1) [facility] [id number] 09:37:00 Test Item Value Reference Interpretation Comments Range Color, UA (test code YELLOW YELLOW = 5778-6) Appearance (test CLEAR CLEAR code = 5767-9) Specific gravity, 1.001-1.035 urine (test code = 5811-5) pH, urine (test code 5.0-8.0 = 5803-2) Glucose, urine (test NEGATIVE NEGATIVE code = 30932-7) Bilirubin, UA (test NEGATIVE NEGATIVE code = 5770-3) Ketones, UA (test NEGATIVE NEGATIVE code = 2514-8) Occult blood, urine NEGATIVE NEGATIVE (test code = 5794-3) Protein, UA (test NEGATIVE NEGATIVE code = 61178-0) Nitrite, UA (test NEGATIVE NEGATIVE code = [...] code = NONE SEEN See_Comment [Autom ated 41567-9) message] The sy stem which generated this result transmitted reference range : < OR = 2 /HPF. Th e reference range was not used to interpret this result as normal/abnormal . Squamous epithelial NONE SEEN See_Comment [Automa aydin cells, UA (test code message ] The system = 97378-5) which generated this result transmitted reference range [...] URINE, code = 630-4) ROUTINE Micro Number: [id number] Test Status: Fi nal Specimen Source [...] RAC) Organization Information: Site ID: BEBA Name: [facility] Address: [address] [place] [address] Director: Rajinder Grant Lab Interpretation Abnormal (test code = 88649-3) [facility] REF[facility] TO [id number] 09:37:00 Test Item Value Reference Interpretation Comments Range Color, UA (test code YELLOW YELLOW = 5778-6) Appearance (test CLEAR CLEAR code = 5767-9) Specific gravity, 1.001-1.035 urine (test code = 5811-5) pH, urine (test code 5.0-8.0 = 5803-2) Glucose, urine (test NEGATIVE NEGATIVE code = 71031-2) Bilirubin, UA (test NEGATIVE NEGATIVE code = 5770-3) Ketones, UA (test NEGATIVE NEGATIVE code = 2514-8) Occult blood, urine NEGATIVE NEGATIVE (test code = 5794-3) Protein, UA (test NEGATIVE NEGATIVE code = 68326-6) Nitrite, UA (test NEGATIVE NEGATIVE code = [...] code = NONE SEEN See_Comment [Autom ated 94853-1) message] The sy stem which generated this result transmitted reference range : < OR = 2 /HPF. Th e reference range was not used to interpret this result as normal/abnormal . Squamous epithelial NONE SEEN See_Comment [Automa aydin cells, UA (test code message ] The system = 93599-2) which generated this result transmitted reference range [...] URINE, code = 630-4) ROUTINE Micro Number: [id number] Test Status: Fi nal Specimen Source [...] = Performing RAC) Organization Information: Site ID: [facility] Name: [facility] Address: [address] [place] [address] Director: Rajinder Grant Lab Interpretation Abnormal (test code = 57391-5) [facility] WITH REFLEX TO [id number] 09:37:00 Test Item Value Reference Interpretation Comments Range Color, UA (test code YELLOW YELLOW = 5778-6) Appearance (test CLEAR CLEAR code = 5767-9) Specific gravity, 1.001-1.035 urine (test code = 5811-5) pH, urine (test code 5.0-8.0 = 5803-2) Glucose, urine (test NEGATIVE NEGATIVE code = 28107-7) Bilirubin, UA (test NEGATIVE NEGATIVE code = 5770-3) Ketones, UA (test NEGATIVE NEGATIVE code = 2514-8) Occult blood, urine NEGATIVE NEGATIVE (test code = 5794-3) Protein, UA (test NEGATIVE NEGATIVE code = 15181-9) Nitrite, UA (test NEGATIVE NEGATIVE code = [...] code = NONE SEEN See_Comment [Autom ated 26170-6) message] The sy stem which generated this result transmitted reference range : < OR = 2 /HPF. Th e reference range was not used to interpret this result as normal/abnormal . Squamous epithelial NONE SEEN See_Comment [Automa aydin cells, UA (test code message ] The system = 71629-4) which generated this result transmitted reference range [...] URINE, code = 630-4) ROUTINE Micro Number: [id number] Test Status: Fi nal Specimen Source [...] RAC) Organization Information: Site ID: RGA [facility]: [facility] Address: [address] [place] [address] Director: Rajinder Grant Lab Interpretation Abnormal (test code = 30789-9) [facility] TO [id number] 09:37:00 Test Item Value Reference Interpretation Comments Range Color, UA (test code YELLOW YELLOW = 5778-6) Appearance (test CLEAR CLEAR code = 5767-9) Specific gravity, 1.001-1.035 urine (test code = 5811-5) pH, urine (test code 5.0-8.0 = 5803-2) Glucose, urine (test NEGATIVE NEGATIVE code = 73071-0) Bilirubin, UA (test NEGATIVE NEGATIVE code = 5770-3) Ketones, UA (test NEGATIVE NEGATIVE code = 2514-8) Occult blood, urine NEGATIVE NEGATIVE (test code = 5794-3) Protein, UA (test NEGATIVE NEGATIVE code = 48336-1) Nitrite, UA (test NEGATIVE NEGATIVE code = [...] code = NONE SEEN See_Comment [Autom ated 41246-2) message] The sy stem which generated this result transmitted reference range : < OR = 2 /HPF. Th e reference range was not used to interpret this result as normal/abnormal . Squamous epithelial NONE SEEN See_Comment [Automa aydin cells, UA (test code message ] The system = 84283-6) which generated this result transmitted reference range [...] URINE, code = 630-4) ROUTINE Micro Number: [id number] Test Status: Fi nal Specimen Source [...] Organization Information: Site ID: BEBA Name: [facility] Address: [address] [place] [phone] Director: Rajinder Grant Lab Interpretation Abnormal (test code = 95614-0) [facility] TO [id number] 09:37:00 Test Item Value Reference Interpretation Comments Range Color, UA (test code YELLOW YELLOW = 5778-6) Appearance (test CLEAR CLEAR code = 5767-9) Specific gravity, 1.009 1.001-1.035 urine (test code = 5811-5) pH, urine (test code 7.0 5.0-8.0 = 5803-2) Glucose, urine (test NEGATIVE NEGATIVE code = 55053-6) Bilirubin, UA (test NEGATIVE NEGATIVE code = 5770-3) Ketones, UA (test NEGATIVE NEGATIVE code = 2514-8) Occult blood, urine NEGATIVE NEGATIVE (test code = 5794-3) Protein, UA (test NEGATIVE NEGATIVE code = 29886-9) Nitrite, UA (test NEGATIVE NEGATIVE code = [...] code = NONE SEEN See_Comment [Autom ated 18213-0) message] The sy stem which generated this result transmitted reference range : < OR = 2 /HPF. Th e reference range was not used to interpret this result as normal/abnormal . Squamous epithelial NONE SEEN See_Comment [Automa aydin cells, UA (test code message ] The system = 48096-8) which generated this result transmitted reference range [...] URINE, code = 630-4) ROUTINE Micro Number: [id number] Test Status: Fi nal Specimen Source [...] = Performing RAC) Organization Information: Site ID: [facility] Name: [facility] Address: [address] [place] [phone] Director: Rajinder Grant Lab Interpretation Abnormal (test code = 59616-3) [facility] urinalysis [id number] 18:20:00 Test Item Value Reference Range Interpretation Comments Color urine, POC (test Straw code = 0782697) Clarity urine, POC (test Clear code = 8910812) Glucose urine, POC (test Negative Negative code = 2025616) Bilirubin urine, POC Negative Negative (test code = 9562941) Ketones urine, POC (test Negative Negative code = 9641101) Specific gravity urine, 1.005-1.030 POC (test code = 5049760) Blood urine, POC (test Trace Negative A code = 1019253) pH urine, POC (test code See_Comment [A utomated message] = 3818222) The system [employer] generated this result transmitted ref erence range: 5.0, 5.5 , 6.0, 6.5, 7.0, 7.5, 8.0, 8.5. The refere nce range was not u sed to interpret this result as normal/abnor mal. Protein urine, POC (test Negative Negative code = 8440958) Urobilinogen urine, POC <2.0 See_Comment [Au tomated message] (test code = 8152897) The sy stem which generated this result transmitted ref erence range: <=2.0. T he reference range was not used to int erpret this result as normal/abnormal . Nitrite urine, POC (test Negative Negative code = 9085604) Leukocyte esterase Negative Negative urine, POC (test code = 1718162) Lab Interpretation (test Abnormal code = 68936-0) [facility] urinalysis [id number] 18:20:00 Test Item Value Reference Range Interpretation Comments Color urine, POC (test Straw code = 3323821) Clarity urine, POC (test Clear code = 5550671) Glucose urine, POC (test Negative Negative code = 3577443) Bilirubin urine, POC Negative Negative (test code = 3975793) Ketones urine, POC (test Negative Negative code = 9125257) Specific gravity urine, 1.005-1.030 POC (test code = 4545746) Blood urine, POC (test Trace Negative A code = 3384603) pH urine, POC (test code See_Comment [A utomated message] = 8000864) The system [employer] generated this result transmitted ref erence range: 5.0, 5.5 , 6.0, 6.5, 7.0, 7.5, 8.0, 8.5. The refere nce range was not u sed to interpret this result as normal/abnor mal. Protein urine, POC (test Negative Negative code = 8342599) Urobilinogen urine, POC <2.0 See_Comment [Au tomated message] (test code = 0138332) The sy stem which generated this result transmitted ref erence range: <=2.0. T he reference range was not used to int erpret this result as normal/abnormal . Nitrite urine, POC (test Negative Negative code = 2672237) Leukocyte esterase Negative Negative urine, POC (test code = 9328147) Lab Interpretation (test Abnormal code = 43484-5) [facility] urinalysis [id number] 18:20:00 Test Item Value Reference Range Interpretation Comments Color urine, POC (test Straw code = 7924576) Clarity urine, POC (test Clear code = 0690247) Glucose urine, POC (test Negative Negative code = 7584314) Bilirubin urine, POC Negative Negative (test code = 7166905) Ketones urine, POC (test Negative Negative code = 1847620) Specific gravity urine, 1.005-1.030 POC (test code = 2157933) Blood urine, POC (test Trace Negative A code = 9908514) pH urine, POC (test code See_Comment [A utomated message] = 8021928) The system [employer] generated this result transmitted ref erence range: 5.0, 5.5 , 6.0, 6.5, 7.0, 7.5, 8.0, 8.5. The refere nce range was not u sed to interpret this result as normal/abnor mal. Protein urine, POC (test Negative Negative code = 1603833) Urobilinogen urine, POC <2.0 See_Comment [Au tomated message] (test code = 0608617) The sy stem which generated this result transmitted ref erence range: <=2.0. T he reference range was not used to int erpret this result as normal/abnormal . Nitrite urine, POC (test Negative Negative code = 3543807) Leukocyte esterase Negative Negative urine, POC (test code = 5476442) Lab Interpretation (test Abnormal code = 48759-7) [facility] urinalysis [id number] 18:20:00 Test Item Value Reference Range Interpretation Comments Color urine, POC (test Straw code = 0417217) Clarity urine, POC (test Clear code = 6012972) Glucose urine, POC (test Negative Negative code = 3038372) Bilirubin urine, POC Negative Negative (test code = 9267160) Ketones urine, POC (test Negative Negative code = 8604261) Specific gravity urine, 1.005-1.030 POC (test code = 9083356) Blood urine, POC (test Trace Negative A code = 2559057) pH urine, POC (test code See_Comment [A utomated message] = 5671252) The system [employer] generated this result transmitted ref erence range: 5.0, 5.5 , 6.0, 6.5, 7.0, 7.5, 8.0, 8.5. The refere nce range was not u sed to interpret this result as normal/abnor mal. Protein urine, POC (test Negative Negative code = 9702807) Urobilinogen urine, POC <2.0 See_Comment [Au tomated message] (test code = 8973079) The sy stem which generated this result transmitted ref erence range: <=2.0. T he reference range was not used to int erpret this result as normal/abnormal . Nitrite urine, POC (test Negative Negative code = 0961881) Leukocyte esterase Negative Negative urine, POC (test code = 7823570) Lab Interpretation (test Abnormal code = 88928-4) [facility] urinalysis [id number] 18:20:00 Test Item Value Reference Range Interpretation Comments Color urine, POC (test Straw code = 4070151) Clarity urine, POC (test Clear code = 8399251) Glucose urine, POC (test Negative Negative code = 7711227) Bilirubin urine, POC Negative Negative (test code = 9379445) Ketones urine, POC (test Negative Negative code = 1362400) Specific gravity urine, 1.005-1.030 POC (test code = 4531638) Blood urine, POC (test Trace Negative A code = 6597177) pH urine, POC (test code See_Comment [A utomated message] = 7250302) The system [employer] generated this result transmitted ref erence range: 5.0, 5.5 , 6.0, 6.5, 7.0, 7.5, 8.0, 8.5. The refere nce range was not u sed to interpret this result as normal/abnor mal. Protein urine, POC (test Negative Negative code = 1102248) Urobilinogen urine, POC <2.0 See_Comment [Au tomated message] (test code = 3471025) The sy stem which generated this result transmitted ref erence range: <=2.0. T he reference range was not used to int erpret this result as normal/abnormal . Nitrite urine, POC (test Negative Negative code = 7784898) Leukocyte esterase Negative Negative urine, POC (test code = 9997190) Lab Interpretation (test Abnormal code = 48089-2) [facility] urinalysis [id number] 18:20:00 Test Item Value Reference Range Interpretation Comments Color urine, POC (test Straw code = 2571924) Clarity urine, POC (test Clear code = 7681761) Glucose urine, POC (test Negative Negative code = 0608924) Bilirubin urine, POC Negative Negative (test code = 1843820) Ketones urine, POC (test Negative Negative code = 5444228) Specific gravity urine, 1.005-1.030 POC (test code = 1301252) Blood urine, POC (test Trace Negative A code = 1778357) pH urine, POC (test code See_Comment [A utomated message] = 9488619) The system [employer] generated this result transmitted ref erence range: 5.0, 5.5 , 6.0, 6.5, 7.0, 7.5, 8.0, 8.5. The refere nce range was not u sed to interpret this result as normal/abnor mal. Protein urine, POC (test Negative Negative code = 2693294) Urobilinogen urine, POC <2.0 See_Comment [Au tomated message] (test code = 4670054) The sy stem which generated this result transmitted ref erence range: <=2.0. T he reference range was not used to int erpret this result as normal/abnormal . Nitrite urine, POC (test Negative Negative code = 7719638) Leukocyte esterase Negative Negative urine, POC (test code = 2156000) Lab Interpretation (test Abnormal code = 02841-8) [facility] urinalysis [id number] 18:20:00 Test Item Value Reference Range Interpretation Comments Color urine, POC (test Straw code = 1625714) Clarity urine, POC (test Clear code = 1614759) Glucose urine, POC (test Negative Negative code = 7056215) Bilirubin urine, POC Negative Negative (test code = 1778690) Ketones urine, POC (test Negative Negative code = 0125206) Specific gravity urine, 1.015 1.005-1.030 POC (test code = 9450488) Blood urine, POC (test Trace Negative A code = 7426331) pH urine, POC (test code 8.0 See_Comment [A utomated message] = 6797488) The system [employer] generated this result transmitted ref erence range: 5.0, 5.5 , 6.0, 6.5, 7.0, 7.5, 8.0, 8.5. The refere nce range was not u sed to interpret this result as normal/abnor mal. Protein urine, POC (test Negative Negative code = 6628456) Urobilinogen urine, POC <2.0 <=2.0 (test code = 0331271) Nitrite urine, POC (test Negative Negative code = 4666710) Leukocyte esterase Negative Negative urine, POC (test code = 5092895) Lab Interpretation (test Abnormal code = 30637-1) Keith MartínezARS-CoV-2 (COVID-19) RNA [Presence] in Respiratory specimen by LATESHA with probe [id number] 09:55:01 Test Item Value Reference Range Interpretation Comments SARS-CoV-2 (COVID-19) RNA Not detected Not-Detected [Presence] in Respiratory specimen by LATESHA with probe detection (test code = 54253-3) Whether patient is employed in a healthcare setting (test code = 37858-0) Whether the patient has symptoms related to condition of interest (test code = 59600-2) Patient was hospitalized because of this condition (test code = 60120-5) Whether the patient was admitted to intensive care unit (ICU) for condition of interest (test code = 62846-6) Whether patient resides in a congregate care setting (test code = 53958-2) [facility]ARS-CoV-2 (COVID-19) RNA [Presence] in Respiratory specimen by LATESHA with probe [id number] 03:07:44 Test Item Value Reference Range Interpretation Comments SARS-CoV-2 (COVID-19) RNA Not detected Not-Detected [Presence] in Respiratory specimen by LATESHA with probe detection (test code = 17860-3) Whether patient is employed in a healthcare setting (test code = 04773-1) Whether the patient has symptoms related to condition of interest (test code = 96284-6) Patient was hospitalized because of this condition (test code = 74432-0) Whether the patient was admitted to intensive care unit (ICU) for condition of interest (test code = 28623-8) Whether patient resides in a congregate care setting (test code = 34860-9) [facility]tV-9 (COVID-19) RNA [Presence] in Respiratory specimen by LATESHA with probe [id number] 02:34:50 Test Item Value Reference Range Interpretation Comments SARS-CoV-2 (COVID-19) RNA Not detected Not-Detected [Presence] in Respiratory specimen by LATESHA with probe detection (test code = 05079-8) Whether patient is employed in a healthcare setting (test code = 98728-0) Whether the patient has symptoms related to condition of interest (test code = 98842-3) Patient was hospitalized because of this condition (test code = 55943-6) Whether the patient was admitted to intensive care unit (ICU) for condition of interest (test code = 62647-0) Whether patient resides in a congregate care setting (test code = 42402-6) [facility]-CoV-2 (COVID-19) RNA [Presence] in Respiratory specimen by LATESHA with probe [id number] 22:46:50 Test Item Value Reference Range Interpretation Comments SARS-CoV-2 (COVID-19) RNA Not detected Not-Detected [Presence] in Respiratory specimen by LATESHA with probe detection (test code = 47840-1) [facility]I [facility]-CoV-2 (COVID-19) RNA [Presence] in Respiratory specimen by LATESHA with probe [id number] 10:19:38 Test Item Value Reference Range Interpretation Comments SARS-CoV-2 (COVID-19) RNA Not detected Not-Detected [Presence] in Respiratory specimen by LATESHA with probe detection (test code = 02869-8) [facility]-CoV-2 (COVID-19) RNA [Presence] in Respiratory specimen by LATESHA with probe [id number] 00:17:03 Test Item Value Reference Range Interpretation Comments SARS-CoV-2 (COVID-19) RNA Not detected Not-Detected [Presence] in Respiratory specimen by LATESHA with probe detection (test code = 55432-3) [facility]-CoV-2 (COVID-19) RNA [Presence] in Respiratory specimen by LATESHA with probe [id number] 00:59:15 Test Item Value Reference Range Interpretation Comments SARS-CoV-2 (COVID-19) RNA Not detected Not-Detected [Presence] in Respiratory specimen by LATESHA with probe detection (test code = 70009-3) [facility]STAT OW2018-01-18 08:12:00 Test Item Value Reference [...] PELVIS WITHOUT CONTRAST, RENAL STONE PROTOCOL:Location code: [id number] HISTORY: Flank painCOMPARISON: CT abdomen and pelvis [...] Range Interpretation Comments COLOR (test code = [place] YELLOW A COLU) CLARITY (test code = [...] 11:03:05CT abdomen and pelvis with contrastLocation Code: [id number] HISTORY: Lower abdominal painCOMPARISON: NoneTechnique: Helical CT [...] mmol/L Notes Date/Time Note Provider Source 2021-08-08 18:57:00 [id number]:57:00 [facility] PROVID[facility] REPORTREPORT#:[id number] REPORT STATUS: SignedDATE:08/08/21 TIME: 1856 PATIENT: HERSON JACKSON UNIT #: [id number]#: [id number] ROOM/BED:AGE: 51 SEX: F PCP PHYS: N o Primary or Family PhysicianSERVICE AUTHOR: Baldomero Stanley * ALL edits or amendments must be made on the electronic/computer document * Baldomero Stanley 08/08/211856:HPI- Female GeneralConfirmed Patient Yes PresentationChief Complaint Abdomina l pain (suprapubic), Flank pain R, Flank pain L, Urinaryfrequency, Urinary urgencyHx Obtained Fro m Patient)( Sudden in Onset? NoOnset Occurred Days ago (2)Symptom Duration Since onsetProgression since Onset Gradually worseningCaused by No trauma by historyLocation Flank R, Flank LQualit y AchingRadiationDoes not radiate. Severity: Onset MildSeverity: Current ModerateAssociated withReports: Abdominal pain, Chills, Fever (subjective), Nausea, Vomiting. Associated Other Pt denies other symptomsExacerbated by MovementRelieved by Nothing Free Text HPI NotesFree Text HPI [id number] female presents ER with complaints of chills, fever, nausea, vomiting, flank pain. Patient states cesario t the pain is located on both sides of the back an d lower abdomen. Patient has past medical history of kidney stones, cervical cancer which is in remission, hep C which is in remission 5 years.Surgical history of neck surgery. PCP Dr. Loveitive for cigarette use, occasional alcohol use denies illicit drug use. Risk- Female Risk StratificationEctopic Risk factors reviewed Review of Systems ROS StatementsAll systems rev neg except as marked. Free Text ROS NotesFree Text ROS NotesFocused Review of Systems ConstitutionalDenies: Chills, Fever, Malaise. RespiratoryDenies: Cough, non-productive, Cough, productive, Pleuritic pain, Shortness of breath, Wheezing. CardiovascularDenies: Chest pain, Palpitations. GIReports: Suprapubic abdominal pain, Nausea, Vomiting. Denies: Bloody/tarry stool, Constipation, Diarrhea, Hematemesis, Hematochezia, Mucousy stool. GUSee HPI MusculoskeletalDenies: Myalgia, Neck pain Past Medical History - AdultStated Complaint CHILLS, FEVER. LOWER BACKPAIN, KIDNEY STONEAllergiesCode d Allergies:No Known Allergies (03/31/12) Review o f Nursing Notes Triage notes reviewedAdditional Medical Historyhep cAdditional Surgical Historynon-contributoryAlcohol Use Alcohol useDrug Use Denies recreational drugsSmoking status: Smoking status for patients 13 years old or older: Never SmokerAmbulatory Status Independent Physical Exam Vital SignsVital SignsFirst Documented: Result Date Time Pulse Ox 96 08/08 1252 B/P 127/86 08/08 125 B/P Mean 99.5 08/08 1252 O2 Delivery Room air 08/08 125 Temp 98.6 08/08 125 Pulse 77 08/08 1252 Resp 1 8 08/08 125 Last Documented: Result Date Time Pulse Ox 97 08/08 1914 B/P 118/75 08/08 1914 B/P Mean 89.2 08/08 1914 Temp 98.1 08/08 1914 Pulse 64 08/08 1914 O2 Delivery Room air 08/08 1252 Resp 18 08/08 1252 Review of Vital Signs Reviewed, Vital signs normal Free Text PE NotesFree Text PE NotesFocused PEGeneral/Const Awake, Alert, Cooperative, Not toxic appearing Distress []Head Atraumatic, NormocephalicEyes PERRL, EOMIEars/Nose/Throat Airway patent, Mucou s membranes moist, Pharynx NLMS Neck Supple, No meningismus, Full range of motionResp/Chest Breath sounds NL, Breath sounds = bilat, No respiratory distress, No rales, No rhonchi, No wheezingCardiovascular Heart rate NL, Regular rhythm, Heart sounds NL, Peripheral circulation NLAbdomen/GI Soft, Non-tender, No guarding, No rebound, BS normoactive, No distentionMS Back Inspection NL, Full range of motion, mild bilateral CVA tendernessSkin Color NL, Warm, DryNeurologic Oriented X3, Speech NL, No motor deficits, No sensory deficits Interpretation Diagnostics Lab Results InterpretationResultsLaboratory Tests 08/08/21 1355:[Embedded Image Not Available]Laboratory Tests: 08/08 08/08 1806 1355 Chemistry Lactic Acid (0.7 - 2.0 mmol/L) 0.7 Urines Urine Color (Yellow) Yellow Urine Appearance (Clear) Slightly-Cloudy Urine pH (5.0 - 8.0) 5.0 Ur Specific [place] (<1.030) 1.018 Urine Protein (Negative mg/dL) NEGATIVE Urine Glucose (UA) (Negative) Negative Urine Ketones (Negative mg/dL) Negative Urine Blood (Negative) 2+ H Urin e Nitrite (Negative) Negative Urine Bilirubin (Negative) Negative Urine Urobilinogen (Negative mg/dL) 2.0 H Ur Leukocyte Esterase (Negative) 1 + H Urine RBC (<4 - 5 /HPF) 11-20 H Urine WBC (<4 - 5 /HPF) 21-30 H Ur Squamous Epith Cells (0 - 5 (RARE) /HPF) 6-15 (FEW) H Urine Bacteria (None - Rare /HPF) None Urine Mucus (<Rare /LPF) 2+ H 08/08 1355 Chemistry Sodium (137 - 145 mmol/L) 141 Potassium (3.4 - 5.0 mmol/L) 4.1 Chloride (9 8 - 107 mmol/L) 110 H Carbon Dioxide (22 - 30 mmol/L) 21 L Anion Gap 15 BUN (7 - 17 mg/dL) 10 Creatinine (0.5 - 1.0 mg/dL) 0.6 Glomerular Filtr Rate (>60) 112 Glucose (74 - 106 mg/dL) 10 9 H Calcium (8.4 - 10.2 mg/dL) 9.1 Total Bilirubi n (0.2 - 1.3 mg/dL) 0.2 Conjugated Bilirubin (0 - 0.3 mg/dL) 0 Unconjugated Bilirubin (0 - 1.1 mg/dL) 0.1 AST (15 - 46 U/L) 29 ALT (0 - 34 U/L ) 19 Total Alk Phosphatase (38 - 126 U/L) 56 Troponin I (0.012 - 0.033 ng/mL) < 0.012 L Total Protein (6.3 - 8.2 g/dL) 7.1 Albumin (3.5 - 5.0 g/dL) 4.1 Specimen Hemolysis (0 - 100 Index/DL) < 15 Hematology WBC (5.0 - 12.0 x10 3/uL) 9.2 RB C (4.20 - 5.40 x10 6/uL) 4.46 Hgb (12.0 - 16.0 g/dL) 13.5 Hct (36.0 - 46.0 %) 40.0 MCV (81 - 99 fL) 90 MCH (27 - 31 pg) 30.3 MCHC (33 - 37 g/dL ) 33.8 RDW (11.5 - 15.5 %) 14.3 Plt Count (130 - 400 x10 3/uL) 224 MPV (9.4 - 16.4 fL) 9.6 Neut % (Auto) (43 - 65 %) 73.1 H Lymph % (Auto) (20.5 - 45.5 %) 15.8 L [place] % (Auto) (5.5 - 11.7 %) 9.8 Eos % (Auto) (0.9 - 2.9 %) 0.7 L Baso % (Auto) (0.2 - 1.0 %) 0.3 Neut # (Auto) (2.2 - 4.8 x10 3/uL) 6.69 H Lymph # (Auto) (1.3 - 2.9 x10 3/uL) 1.45 [place] # (Auto) (0.3 - 0.8 x10 3/uL) 0.90 H Eos # (Auto) (0.0 - 0.2 x10 3/uL) 0.06 Baso # (Auto) (0.0 - 0.1 x10 3/uL) 0.03 Immature Gran % (0.0 - 2.0 %) 0.3 Nucleated RBC % (0 - 1.0 %) 0. 0 Microbiology: Date/Time Procedure - Status Sourc e Growth 08/09 1847 Urine Culture - RECD URINE 08/08 1354 Blood Culture - RES BLOOD 08/08 135 Blood Culture - RES BLOOD Recent Impressions:RADIOLOGY - XR CHEST 1 V 08/08 1338 Report Impression - Status: SIGNED Entered: 08/08/2021 1354 IMPRESSION:1. No acute cardiopulmonary findings seen.Impression By: [email or web address] - aCmden Saravia [facility] SCAN - CT ABD PELVIS W/O CONT 08/08 1430 Report Impression - Status: SIGNED Entered: 08/08/2021 1456 IMPRESSION: 1. Left nephrolithiasis. No hydronephrosis. No obstructive uropathy.2. No free fluid, or free air.3. Findings suggest pelvic inflammatory disease. RECOMMENDATIONS: None. Internal Codin g only:B3 Impression By: Sandro Ovalles MD Lab Imaging StatementLaboratory radiographic studies reviewed and considered in the medical decision-making. Point of Care TestingUrinalysis Interpretation Positive blood, Positive leukocyt e est, Positive RBC's, Positive WBC'sPulse Oximetr y Pulse Ox % 97 On: Room air Interpretation Interpreted by me, Pulse oximetry normal Time 1915 ECG #1 InterpretationDate 08/08/21Time 1353Interpreted by ED physician, ED physician assistantNL ECG Interpretation Normal rate, Normal sinus rhythm, No acute ischemic changes, No STEMI, Normal QRS, Normal ST waves, Normal T waves, Normal axis, Normal intervals, Adequate tracingRate 66 ECG Interpretation NoteThe ECG interpretation was done contemporaneously by me. This is an adequate tracing. There is no acute ischemia; the rhythm is normal sinus; MT does no t demonstrate AV heart block; QRS does not demonstrate a bundle branch block; ST and T wave s do not show any ST elevation to suggest acute [place] ; see [place] for details and measurements; agree wit h computer interpretation. Re-Evaluation MDM Re-Evaluation/ProgressRe-Evaluation/Progress 1 Text/Dict NotePlan to discharge discussed with pt. Discussed diagnosis, results, and treatmentplan with pt. Pt understands and agrees with the plan. Written educational handouts/material appropriate to the pt's proble m provided to the pt. All questions and concerns were addressed. Pt advised to follow-up with PCP in 2-3 days. Stressed importance of follow-up. E R return precautions discussed with pt.Pt advised to return to ED for any new, worsening, persistent, or concerning symptoms. Pt verbalize d understanding. Time of Re-Eval 185 Re-Eval Status Improved Eval Following Treatment Pt. feels betterRe-Evaluation/Progress 2 Text/Dict NoteI did not write a prescription to cover the patient for possible pelvic inflammatory disease . She received the 1 g of Rocephin here but also needs to be placed on doxycycline and Flagyl. I called the phone number the patient leftin her contact information. The phone call went to her parents who are aware that she was at the hospital today and they gave me her phone number . Her phonenumber is [phone]. That number did not work. I called the parents back and they stated that they were attempting to call her as well but thinks she maybe asleep. Time of Re-Tara l 2312Re-Evaluation/Progress 3 Text/Dict NoteI was able to get in touch with the patient. I explained to her the missed diagnosis on my part . We discussed the diagnosis and she agreed to pic k up bothdoxycycline and Flagyl antibiotics at the [facility] and [facility] with ZIP Code [id number]. I instructed the patient that she does no t have to take the Macrobid any longer. Patient verbalized understanding and states she will pic k up her prescriptions in the morning. Time of Re-Eval 2319 ED CourseMedication(s) OrderedMedication(s) Ordered:Anti-Infective Agents Sig/Kevin Start time Last Medication Dose Route Stop Time Status Admin Ceftriaxone Sodium 1,000 MG X1ED STA 08/08 1257 DC 08/08 Sodium Chloride 10 ML IV 08/08 1259 1415 Central Nervou s System Agents Sig/Kevin Start time Last Medication Dose Route Stop Time Status Admin Ketorolac 15 MG X1ED STA 08/08 1257 DC 08/08 Tromethamine IV 08/08 1258 1415 Electrolytic, Caloric, And Jeannette Sig/Kevin Start time Last Medication Dose Route Stop Time Status Admin Lactated Ringer's 2,318.1 9 ML X1ED STA 08/08 1257 DC 08/08 IV 08/08 1258 1410 Gastrointestinal Drugs Sig/Kevin Start time Last Medication Dose Route Stop Time Status Admi n Ondansetron HCl 4 MG X1ED STA 08/08 1257 DC 07/12 9 IV 08/08 1258 1416 Patient Discharge Departure Vital Signs/ConditionVital SignsFirst Documented : Result Date Time Pulse Ox 96 08/08 125 B/P 127/86 08/08 125 B/P Mean 99.5 08/082 O2 Delivery Room air 08/09 1251 Temp 98.6 08/08 125 2 Pulse 77 08/08 1252 Resp 18 08/08 1252 Last Documented: Result Date Time Pulse Ox 97 08/08 1914 B/P 118/75 08/08 1914 B/P Mean 89.2 08/08 1914 Temp 98.1 08/08 1914 Pulse 64 08/08 1914 O2 Delivery Room air 08/08 1252 Resp 18 08/08 1252 All vital signs available at the time of this entry have been reviewed. Condition Stable, Improved Clinical ImpressionClinical ImpressionPrimary Impression: PID (acute pelvic inflammatory disease)Secondary Impressions: UTI (urinary tract infection) Disposition DecisionDischarge )( Discharged to Home Yes )( Time 1900 )( Date 08/08/21 Discharge/Care PlanCounseled Regarding Diagnosis, Lab results, Imaging studies, Prescriptions, Needfor follow-up, When to return to ED(Auto) PrescriptionsCurrent Visit ScriptsPHENAZOPYRIDIN E (PYRIDIUM) 200 MG PO TID PRN PRN DYSURIA PHENAZOPYRIDINE (PYRIDIUM) 200 MG PO TID PRN PRN DYSURIA #6 TABS TAKE AFTER MEALS. DOXYCYCLINE HYCLATE (VIBRAMYCIN) 100 MG PO Q12H 14 Days #28 CAPS metroNIDAZOLE (FLAGYL) 500 MG PO BID 14 Day s #28 TABS Prescriptions Reviewed Risks, Benefits, Alternative treatmentPatient Instructions Urinar y Tract Infections in WomenDeparture FormsFREE OR LOW COST [facility] PCP LISTUROLOGIST LIST Discharge NoteI have spoken with the patient and/or caregivers. I have explained the patient'scondition, diagnoses and treatment plan based on the information available to meat this time. I have answered the patient's and/or caregiver's questions and addressed any concerns . The patient and/or caregivers have as good an understanding of the patient's diagnosis, condition and treatment plan as can beexpected a t this point. The vital signs have been stable. Th e patient's condition is stable and appropriate fo r discharge from the emergency department. The patient will pursue further outpatient evaluatio n with the primary care physician or other designated or consulting physician as outlined i n the discharge instructions. The patient and/or caregivers are agreeable to this planof care and follow-up instructions have been explained in detail. The patient and/or caregivers have received these instructions in written format an d have expressed an understanding of the discharge instructions. The patient and/or caregivers are aware that any significant change in condition o r worsening of symptoms should prompt an immediate return to this or the closest emergency department or a call to 911. Naren Sapp 2 0259:HPI- Female GeneralInitial Greet Date/Stuart e 08/08/21 1248 Patient Discharge Departure Supervising Physician Note MidLv Saw Pt AloneI have reviewed the PA/BLASTING ENTRYMAN's note and plan of care. I was available for consultation as needed at al l times during the patient's visit in the emergenc y department. at 0148 at 0300RPT #:[id number] OF REPORTEDEmergency department [id number]:57:00C.[id number] a ilable for patient [id number]:48:36 2021-08-08 13:00:00 [id number]:00 [facility]EMERGENCY PROVIDER REPORTREPORT#:[id number] REPORT STATUS: SignedDATE:08/08/21 TIME: 1300 PATIENT: HERSON JACKSON UNIT #: [id number]#: [id number] ROOM/BED:AGE: 51 SEX: F PCP PHYS: N o Primary or Family PhysicianSERVICE AUTHOR: Debo Gutierrez * ALL edits or amendments must be made on the electronic/computer document * Debo Gutierrez 08/08/21 1300:Provider in Triage - Adult Provide r in Triage Grelazarus NoteI have greeted and performed a focused rapid initial assessment of this patient.A comprehensive ED assessment and evaluation of the patient, analysis of all test results, and completion of the medical decision-making process will be conducted by additional ED providers. MSE Not CompleteThe medical screening exam is not complete. Further evaluation and/or treatment is required. The patient will be re-directed to the emergency department. Free Text PIT NotesFree Text PIT [id number] female presents ER with complaints of chills, fever, nausea, vomiting, flank pain. Patient states that the pain is located on both sides of the back and lower abdomen. Patient has past medical history of kidney stones, cervical cancer which is in remission, hep C which is in remission 5 years.Surgical history of neck surgery. PCP Dr. Portillo for cigarette use, occasional alcohol use denies illicit drug use. PMH-Provide r in TriageStated Complaint CHILLS, FEVER. LOWER BACK PAIN, KIDNEY STONEAllergiesCoded Allergies:No Known Allergies (03/31/12) Additional Medical Historyhep cAdditional Surgical Historynon-contributorySmoking status: Smoking status for patients 13 years old or older: Never Smoker Norberto Mendez 08/17/21 1148:Provider in Triage - Adult Provider in TriageInitial [facility] Date/Time 08/08/21 1248 at 1302 at 1200RPT #:[id number] OF REPORTEDEmermercy hospital [facility] [place] department [id number]:00:00C.[id number] a ilable for patient [id number]:02:29
--- NOTE | 2023-03-06 20:53 | ER ---
Nurse's Notes [facility] Name: Fany Meza Age: 52 yrs Sex: Female : 1970 Arrival Date: 03/06/2023 Time: 20:19 Bed IW6 Private MD: Diagnosis: Radiculopathy, cervical region Presentation: 03/06 20:38 Chief complaint: Patient states: neck pain X2 days. Pt states that she was seen at [address] and was told that "One of my fusions in my neck is now incomplete and I have a loose screw. I was told that if the pain got worse to come to this ED because they don't have the equipment at [place].". Coronavirus screen: Vaccine status: Patient reports receiving the 2nd dose of the covid vaccine. Client denies travel out of the [place] in the last 14 days. Ebola Screen: Patient denies travel to an Ebola-affected area in the 21 days before illness onset. No symptoms or risks identified at this time. Initial Sepsis Screen: Does the patient meet any 2 criteria? No. Patient's initial sepsis screen is negative. Does the patient have a suspected source of infection? No. Patient's initial sepsis screen is negative. Risk Assessment: Do you want to hurt yourself or someone else? Patient reports no desire to harm self or others. Onset of symptoms was March 06, 2023. 20:38 Method Of Arrival: Ambulatory 10 20:38 Acuity: SHARAN 3 cm10 Historical: - Allergies: 20:40 No Known Allergies; cm10 - PMHx: 20:40 cervical cancer; Hep C; Hypertensive disorder; cm10 - PSHx: 20:40 section; neck; cm10 - Immunization history:: Adult Immunizations unknown. - Social history:: Smoking status: Patient reports the use of cigarette tobacco products, smokes one-half pack cigarettes per day. Assessment: 20:50 Reassessment: Per registration, pt left the ED. cm10 Vital Signs: 20:38 BP 146 / 96; Pulse 83; Resp 18; Temp 97.3; Pulse Ox 100% ; Weight 79.38 kg; Height 5 cm10 ft. 4 in. ; Pain 7/10; 20:38 Body Mass Index 30.04 (79.38 kg, 162.56 cm) cm10 20:38 Pain Scale: Adult cm10 ED Course: 20:24 Patient arrived in ED. mg5 20:26 Lisa Cabrera FNP-C is [facility]. kb 20:26 Derick Miguel MD is Attending Physician. kb 20:40 Triage completed. cm10 20:40 Arm band placed on Patient placed in waiting room. cm10 Administered Medications: 20:53 CANCELLED (Patient Refused): sqodfpuxtkzdbox48.5 mg IVP once cm10 20:53 CANCELLED (Patient Eloped): fbpsitijhgztum20 mg IVP once; over 1 to 2 minutes cm10 20:53 CANCELLED (Patient Refused): txhubksvk66 mg IVP once cm10 20:53 CANCELLED (Patient Refused): Decadron - cmlyosneywebj36 mg IVP once cm10 20:54 CANCELLED (Patient Refused): ns 0.9% 1000 ml IV at 1000 ml once cm10 Outcome: 20:53 Discharge ordered by . kb 20:54 Patient left the ED. cm10 Signatures: Lisa Cabrera FNP-C FNP-Ckb Martinez, Clarissa, RN RN cm10 Alee Santoro mg5 Corrections: (The following items were deleted from the chart) 20:40 20:40 PMHx: Hep C; cm10 cm10
--- NOTE | 2023-03-06 20:53 | EDPHYS ---
Physician Documentation [facility] Name: Fany Meza Age: 52 yrs Sex: Female : 1970 Arrival Date: 03/06/2023 Time: 20:19 Bed IW6 Private MD: ED Physician Derick Miguel HPI: 03/06 21:10 This 52 yrs old Female presents to ER via Ambulatory with complaints of Neck and Upper kb Back Pain, Headache. 21:10 Patient is a 52-year-old female who presents with pain to her neck that started about 2 kb weeks ago and is gotten worse. States she had surgery on her Cervical spine 3 years ago and had not had problems until recently. Patient states she was seen at [facility] last night, they gave her medications and did CAT scan and told her to follow-up with neurosurgery. States today she was having lunch with her parents and it started getting worse so she came in . Historical: - Allergies: 20:40 No Known Allergies; cm10 - PMHx: 20:40 cervical cancer; Hep C; Hypertensive disorder; cm10 - PSHx: 20:40 section; neck; cm10 - Immunization history:: Adult Immunizations unknown. - Social history:: Smoking status: Patient reports the use of cigarette tobacco products, smokes one-half pack cigarettes per day. ROS: 21:07 Constitutional: Negative for fever, chills, and weight loss, kb 21:07 Neck: Positive for pain with movement, pain at rest, 21:07 Neuro: Positive for headache, 21:07 All other systems are negative, Exam: 21:07 Constitutional: This is a well developed, well nourished patient who is awake, alert, kb and in no acute distress. Head/Face: Normocephalic, atraumatic. ENT: Moist Mucous membranes Cardiovascular: Regular rate Respiratory: Respirations even and unlabored. No increased work of breathing. Talking in full sentences Skin: Warm, dry with normal turgor. Normal color. MS/ Extremity: Pulses equal, no cyanosis. Neurovascular intact. Full, normal range of motion. Neuro: Awake and alert, GCS 15, oriented to person, place, time, and situation. Moves all extremities. Normal gait. 21:07 Neck: External neck: tenderness, that is mild, of the right posterior aspect of neck, C-spine: appears grossly normal, Vital Signs: 20:38 BP 146 / 96; Pulse 83; Resp 18; Temp 97.3; Pulse Ox 100% ; Weight 79.38 kg; Height 5 cm10 ft. 4 in. ; Pain 7/10; 20:38 Body Mass Index 30.04 (79.38 kg, 162.56 cm) cm10 20:38 Pain Scale: Adult cm10 MDM: 20:30 Patient medically screened. kb 21:07 Differential diagnosis: arthritis, Cervical Disc Herniation Cervical Raiculopathy kb cervical strain. Data reviewed: vital signs, nurses notes. External Records Reviewed: Outside ED record: CT head and c-spine results from [facility] reviewed. Test was done yesterday. Shows possible loosening of hardware. ED course: Pt elected to leave the lobby prior to medication administration. Pt and I discussed follow up with neurosurgeon and pt plans to follow up on Wednesday. Administered Medications: 20:53 CANCELLED (Patient Refused): eeprgvpcrcgrgar14.5 mg IVP once cm10 20:53 CANCELLED (Patient Eloped): vzyiohyktozzyr89 mg IVP once; over 1 to 2 minutes cm10 20:53 CANCELLED (Patient Refused): qusbqgypc55 mg IVP once cm10 20:53 CANCELLED (Patient Refused): Decadron - lfivxulnszvsu45 mg IVP once cm10 20:54 CANCELLED (Patient Refused): ns 0.9% 1000 ml IV at 1000 ml once cm10 Disposition: 03/07 06:41 Co-signature as Attending Physician, Derick Miguel MD I agree with the assessment sp4 and plan of care. I reviewed the patient's care provided by the Advanced Practice Provider and agree with the diagnosis and treatment plan. Disposition Summary: 03/06/23 20:53 Discharge Ordered Notes: Location: Home kb Condition: Stable kb Diagnosis - Radiculopathy, cervical region kb Followup: kb - With: Emergency Department - When: As needed - Reason: Worsening of condition Followup: kb - With: Private Physician - When: 2 - 3 days - Reason: Recheck today's complaints, Continuance of care, Re-evaluation by your physician Discharge Instructions: - Discharge Summary Sheet kb - Cervical Radiculopathy, [id number]-[id number] kb Forms: - Medication Reconciliation Form kb - Thank You Letter kb - Antibiotic Education kb - Prescription Opioid Use kb - Patient Portal Instructions kb - Leadership Thank You Letter kb Signatures: Lisa Cabrera, AUTO PARKER-C AUTO PARKER-Derick Taylor MD MD sp4 Jaimie Reyes RN RN cm10 Corrections: (The following items were deleted from the chart) 03/06 20:40 20:40 PMHx: Hep C; cm10 cm10 20:53 20:44 diphenhydrAMINE IVP 12.5 mg IVP once ordered. kb cm10 20:53 20:44 metoCLOPramide IVP 10 mg IVP once; over 1 to 2 minutes ordered. kb cm10 20:53 20:44 Ketorolac IVP 15 mg IVP once ordered. kb cm10 20:53 20:44 Decadron - Dexamethasone IVP 10 mg IVP once ordered. kb cm10 20:54 20:44 IV Saline Lock ordered. kb cm10 20:54 20:44 NS 0.9% IV 1000 ml IV at 1000 ml once ordered. kb cm10
[2023-03-06 21:36] VITALS: BP 146/96; TEMP 97.3; O2SAT 100
== END 2023-03-06 20:54 | disposition home or self-care (01) ==
LOC: ER 20:19
DX: M54.12 Radiculopathy, cervical region (principal)
CPT/HCPCS: 99281

== ENCOUNTER → 2023-04-27 | Emergency (ER) | payer OTHER ==
[~2023-04-27] MED LIST: DICYCLOMINE HCL 20 MG/2 ML AMP IM ONE; FAMOTIDINE 20 MG/2 ML VIAL IV ONE; MORPHINE 4 MG/ML SYR ONE; NA CHLORIDE 0.9% 1,000 ML ONE; ONDANSETRON 4 MG/2 ML VIAL ONE
[2023-04-27 13:34] LABS: Absolute Lymphocytes (CBC) 1.8 K/uL (0.7-4.9); Hematocrit 45.7 % (36.0-45.0); Lymphocytes % 16.9 % (15.3-44.8); MCV 92.3 fL (80-100); MPV 7.9 fL (7.6-11.3); Platelets 297 thou/uL (152-406); RBC Red Blood Cell Count 4.95 M/uL (3.86-4.86)
[2023-04-27 13:38] LABS: Specific Gravity 1.006 (1.005-1.030); Urine Bilirubin NEGATIVE (Negative); Urine Blood Negative (Negative); Urine Clarity Clear (Clear); Urine Color Colorless (Yellow); Urine Glucose NEGATIVE (Negative); Urine Protein NEGATIVE (Negative); Urine Urobilinogen Normal (Normal); Urine pH 6.5 (5.0-7.0)
[2023-04-27 13:49] LABS: Albumin 4.4 g/dL (3.4-5.0); Bilirubin Total 0.4 mg/dL (0.2-1.0); Potassium 4.4 mEq/L (3.5-5.1); Protein, Total 8.1 g/dL (6.4-8.2)
--- NOTE | 2023-04-27 14:23 | RAD REPORT ---
EXAM DESCRIPTION: CT - Abdomen Pelvis W Contrast - 04/27/2023 1:36 pm CLINICAL HISTORY: ABD PAIN COMPARISON: Abdomen Pelvis W Contrast dated 04/16/2023; Abdomen Pelvis W Contrast dated 05/22/2022 TECHNIQUE: Thin cut axial CT imaging of the abdomen and pelvis was performed following intravenous a dministration of 100 mL Isovue 300. Multiplanar reformats were generated and reviewed. All CT scans are performed using dose optimization technique as appropriate and may include automated exposure control or mA/KV adjustment according to patient size. FINDINGS: No suspicious findings in the lung bases. The liver, spleen, adrenal glands, and pancreas show no suspicious findings. Gallbladder and biliary tree are also without suspicious finding. Symmetric renal function is seen with no hydronephrosis or suspicious renal mass. No dilated bowel loops or bowel wall thickening. No free air, free fluid or inflammatory stranding. N o hernia, mass or bulky lymphadenopathy. The urinary bladder is without significant finding. No suspicious bony findings. IMPRESSION: No acute intra-abdominal process.
--- NOTE | 2023-04-27 14:50 | RAD REPORT ---
EXAM DESCRIPTION: CT - Chest For Pe Angio - 04/27/2023 1:37 pm CLINICAL HISTORY: Dyspnea;Chest pain COMPARISON: Chest For Pe Angio dated 06/24/2022; Chest Single View dated 12/27/2022; Abdomen Pelvis W Contrast dated 04/27/2023 TECHNIQUE: Thin axial CT images of the chest were obtained following administration of 100 mL Isovue 370 IV contrast. Multiplanar reconstructions, and maximum intensity projection reconstructions were generated and reviewed. Exam utilizes a protocol for optimal evaluation of pulmonary arterial tree. All CT scans are performed using dose optimization technique as appropriate and may include automated exposure control or mA/KV adjustment according to patient size. FINDINGS: Pulmonary arteries are normal. No emboli or other suspicious finding. 6 mm left upper lobe peribronchovascular nodule versus vascular ectasia on axial image 106, stable. No acute or significa nt aorta findings. No mass or infiltrate in the lung parenchyma. No pleural thickening or pleural effusion. No pneumotho rax. No abnormal mediastinal or hilar masses or lymphadenopathy seen. No chest wall mass or abnormal axill iary lymphadenopathy. IMPRESSION: No evidence of acute central pulmonary emboli. No other acute pulmonary process.
--- NOTE | 2023-04-27 14:56 | EDPHYS ---
Physician Documentation [facility] Name: Fany Meza Age: 52 yrs Sex: Female : 1970 Arrival Date: 04/27/2023 Time: 13:05 Bed 14 Private MD: Yolanda Lakhani ED Physician Tam Meraz HPI: 04/27 13:32 This 52 yrs old Female presents to ER via Ambulatory with complaints of Abdominal Pain, kb Vomiting. 13:32 Pt is a 52 year old female who presents for epigastric pain that radiates up through kb chest for one week with diarrhea and nausea. States she was seen by GI yesterday and he plans to do an endoscopy, but it is not scheduled yet. States she had three episodes of vomiting this morning and she spit up blood a couple of times so she wanted to come get checked out. . Historical: - Allergies: 13:20 No Known Allergies; ap3 - Home Meds: 13:15 amlodipine 5 mg tab 1 tab once daily [Active]; mb9 - PMHx: 13:15 cervical cancer; Hep C; Hypertensive disorder; mb9 13:20 Gastroesophageal reflux disease; ap3 - PSHx: 13:15 section; neck; mb9 - Immunization history:: Client reports receiving the 2nd dose of the Covid vaccine. - Social history:: Smoking status: Patient reports the use of cigarette tobacco products, denies chronic smoking, but will smoke occasionally, Patient uses alcohol, occasionally. ROS: 13:25 Constitutional: Negative for fever, chills, and weight loss, kb 13:25 Abdomen/GI: Positive for abdominal pain, nausea and vomiting, diarrhea, 13:25 All other systems are negative, 13:25 Cardiovascular: Positive for chest pain, kb 13:25 Respiratory: Positive for "pain takes my breath away", Exam: 13:25 Constitutional: This is a well developed, well nourished patient who is awake, alert, kb and in no acute distress. Head/Face: Normocephalic, atraumatic. ENT: Moist Mucous membranes Cardiovascular: Regular rate Respiratory: Respirations even and unlabored. No increased work of breathing. Talking in full sentences Skin: Warm, dry with normal turgor. Normal color. MS/ Extremity: Pulses equal, no cyanosis. Neurovascular intact. Full, normal range of motion. Neuro: Awake and alert, GCS 15, oriented to person, place, time, and situation. Moves all extremities. Normal gait. 13:25 Abdomen/GI: Inspection: abdomen appears normal, Bowel sounds: normal, Palpation: soft, in all quadrants, mild abdominal tenderness, moderate abdominal tenderness, in the epigastric area, 14:03 ECG was reviewed by the Attending Physician. kb Vital Signs: 13:17 BP 148 / 97; Pulse 118; Resp 17; Pulse Ox 98% ; Weight 79.38 kg; Height 5 ft. 4 in. ; ap3 Pain 7/10; 13:54 BP 144 / 95; Pulse 88; Resp 18; Pulse Ox 97% on R/A; mb9 14:25 BP 127 / 87; Pulse 64; Resp 16; Pulse Ox 98% on R/A; mb9 13:17 Body Mass Index 30.04 (79.38 kg, 162.56 cm) ap3 13:17 Pain Scale: Adult ap3 MDM: 13:12 Patient medically screened. kb 14:53 Data reviewed: vital signs, nurses notes. kb 14:53 Differential diagnosis: gastritis, gastroesophageal reflux disease, GI Bleed, kb non-specific abd pain, Peptic Ulcer Disease, PE. Counseling: I had a detailed discussion with the patient and/or guardian regarding the historical points, exam findings, and any diagnostic results supporting the discharge/admit diagnosis, lab results, radiology results, the need for outpatient follow up, a quantity surveyor, to return to the emergency department if symptoms worsen or persist or if there are any questions or concerns that arise at home. 14:56 ED course: Patient is feeling better after treatment. States pain is resolved. Received kb a call from her GIs office while awaiting results and her endoscopy is scheduled for Wednesday.. 04/27 13:20 Order name: CBC with Diff; Complete Time: 13:39 kb 04/27 13:20 Order name: CMP; Complete Time: 13:49 kb 04/27 13:20 Order name: Lipase; Complete Time: 13:49 kb 04/27 13:20 Order name: Urinalysis w/ reflexes; Complete Time: 13:39 kb 04/27 13:26 Order name: Troponin High Sensitivity; Complete Time: 13:55 kb 04/27 13:20 Order name: CT Abd/Pelvis - IV Contrast Only; Complete Time: 14:27 kb 04/27 13:20 Order name: CT Chest For PE Angio; Complete Time: 14:51 kb 04/27 13:26 Order name: EKG; Complete Time: 13:26 kb 04/27 13:20 Order name: IV Saline Lock; Complete Time: 13:23 kb 04/27 13:20 Order name: Labs collected and sent; Complete Time: 13:23 kb 04/27 13:26 Order name: EKG - Nurse/Tech; Complete Time: 13:56 kb EC:03 Rate is 78 beats/min. Rhythm is regular. QRS Fontana is Normal. IL interval is normal at kb 130 msec. QRS interval is normal at 76 msec. QT interval is normal at 456 msec. Administered Medications: 13:25 Drug: NS 0.9% IV 1000 ml IV at 1 bolus Per protocol; 1000 mL bolus Route: IV; Rate: 1 mb9 bolus; Site: right antecubital; 13:25 Drug: Famotidine IVP 20 mg IVP once; dilute with 10 mL 0.9% NaCl; give over 2 minutes mb9 Route: IVP; Site: right antecubital; 14:05 Follow up: Response: No adverse reaction mb9 13:32 Drug: Dicyclomine IM 20 mg IM once Route: IM; Site: left deltoid; mb9 14:05 Follow up: Response: No adverse reaction mb9 13:33 Drug: Ondansetron IVP 4 mg IVP once; over 2 minutes Route: IVP; Site: right antecubital;mb9 14:05 Follow up: Response: No adverse reaction mb9 15:15 Drug: Ondansetron IVP 4 mg IVP once; over 2 minutes Route: IVP; Site: right antecubital;mb9 15:24 Follow up: Response: No adverse reaction mb9 Disposition: 16:32 Co-signature as Attending Physician, Tam Meraz MD I reviewed the patient's care rn provided by the Advanced Practice Provider and agree with the diagnosis and treatment plan. Disposition Summary: 04/27/23 14:55 Discharge Ordered Notes: Location: Home Condition: Stable kb Diagnosis - Epigastric pain kb Followup: kb - With: Emergency Department - When: As needed - Reason: Worsening of condition Followup: kb - With: Private Physician - When: 2 - 3 days - Reason: Recheck today's complaints, Continuance of care, Re-evaluation by your physician Discharge Instructions: - Abdominal Pain, Adult, [id number] kb - Discharge Summary Sheet mb9 Forms: - Medication Reconciliation Form kb - Thank You Letter kb - Antibiotic Education kb - Prescription Opioid Use kb - Patient Portal Instructions kb - Leadership Thank You Letter kb - Work release form mb9 Signatures: Dispatcher [employer] EDLisa Mckeon, TABLE GAMES DUAL RATE SUPERVISOR-C TABLE GAMES DUAL RATE SUPERVISOR-Tam Jaimes MD MD rn Prokisch, Amanda, RN RN Christina Iyer RN RN mb9
--- NOTE | 2023-04-27 14:56 | ER ---
Nurse's Notes [facility] Name: Fany Meza Age: 52 yrs Sex: Female : 1970 Arrival Date: 04/27/2023 Time: 13:05 Bed 14 Private MD: Yolanda Lakhani Diagnosis: Epigastric pain Presentation: 04/27 13:17 Chief complaint: Patient states: she has been having abdominal pain for approx one ap3 week. patient states she went to be evaluated by her research laboratory manager yesterday, and they plan on doing an endoscopy which is not scheduled as of yet. patient states she became concerned this morning when she woke up and began spitting up blood. patient reports her current pain as a 7/10 on the pain scale in the epigastric region. Coronavirus screen: At this time, the client does not indicate any symptoms associated with coronavirus-19. Ebola Screen: No symptoms or risks identified at this time. Initial Sepsis Screen: Does the patient meet any 2 criteria? HR > 90 bpm. Does the patient have a suspected source of infection? Yes: Acute abdominal pain. Risk Assessment: Do you want to hurt yourself or someone else? Patient reports no desire to harm self or others. Onset of symptoms was April 20, 2023. 13:17 Method Of Arrival: Ambulatory ap3 13:17 Acuity: SHARAN 3 ap3 Triage Assessment: 13:21 General: Appears in no apparent distress. Behavior is calm, cooperative. Pain: ap3 Complains of pain in epigastric area Pain currently is 7 out of 10 on a pain scale. Pain began gradually. Neuro: Level of Consciousness is awake, alert, obeys commands, Oriented to person, place, time, situation. Cardiovascular: Patient's skin is warm and dry. Respiratory: Airway is patent Respiratory effort is even, unlabored, Respiratory pattern is regular, symmetrical. GI: Reports upper abdominal pain, nausea, vomiting. Historical: - Allergies: 13:20 No Known Allergies; ap3 - Home Meds: 13:15 amlodipine 5 mg tab 1 tab once daily [Active]; mb9 - PMHx: 13:15 cervical cancer; Hep C; Hypertensive disorder; mb9 13:20 Gastroesophageal reflux disease; ap3 - PSHx: 13:15 section; neck; mb9 - Immunization history:: Client reports receiving the 2nd dose of the Covid vaccine. - Social history:: Smoking status: Patient reports the use of cigarette tobacco products, denies chronic smoking, but will smoke occasionally, Patient uses alcohol, occasionally. Screenin:21 [facility] ED Fall Risk Assessment (Adult) History of falling in the last 3 months, ap3 including since admission No falls in past 3 months (0 pts). Abuse screen: Denies threats or abuse. Nutritional screening: No deficits noted. Tuberculosis screening: No symptoms or risk factors identified. Assessment: 13:33 General: Appears in no apparent distress. Behavior is calm, cooperative. Pain: mb9 Complains of pain in abdomen Pain radiates to epigastric area Quality of pain is described as burning, throbbing, Pain began 1 wk ago Is continuous. Neuro: Meade Agitation-Sedation Scale (RASS): 0 - Alert and Calm Level of Consciousness is awake, alert, obeys commands, Oriented to person, place, time, situation, Appropriate for age. Cardiovascular: Patient's skin is warm and dry. Respiratory: Airway is patent Respiratory effort is even, unlabored, Respiratory pattern is regular, symmetrical. GI: Abdomen is round non-distended, Bowel sounds present X 4 quads. Abd is soft Abdomen is tender to palpation in epigastric area Reports nausea, vomiting. : No signs and/or symptoms were reported regarding the genitourinary system. EENT: No signs and/or symptoms were reported regarding the EENT system. Derm: Skin is pink, warm \T\ dry. Musculoskeletal: Range of motion: intact in all extremities. 15:24 Reassessment: Patient and/or family updated on plan of care and expected duration. Pain mb9 level reassessed. Patient is alert, oriented x 3, equal unlabored respirations, skin warm/dry/pink. Patient states feeling better. Patient states symptoms have improved. Vital Signs: 13:17 BP 148 / 97; Pulse 118; Resp 17; Pulse Ox 98% ; Weight 79.38 kg; Height 5 ft. 4 in. ; ap3 Pain 7/10; 13:54 BP 144 / 95; Pulse 88; Resp 18; Pulse Ox 97% on R/A; mb9 14:25 BP 127 / 87; Pulse 64; Resp 16; Pulse Ox 98% on R/A; mb9 13:17 Body Mass Index 30.04 (79.38 kg, 162.56 cm) ap3 13:17 Pain Scale: Adult ap3 ED Course: 13:08 Patient arrived in ED. mr 13:08 Yolanda Lakhani is Private Physician. mr 13:12 Lisa Cabrera FNP-C is [facility]. kb 13:12 Tam Meraz MD is Attending Physician. kb 13:15 Christina Ashton, RN is Primary Nurse. mb9 13:15 Arm band placed on. mb9 13:20 Triage completed. ap3 13:23 Inserted saline lock: 20 gauge in right antecubital area, using aseptic technique. mb9 13:30 Troponin High Sensitivity Sent. bc6 13:30 CBC with Diff Sent. bc6 13:30 CMP Sent. bc6 13:30 Lipase Sent. bc6 13:30 Urinalysis w/ reflexes Sent. bc6 13:32 CBC with Diff Sent. mb9 13:32 CMP Sent. mb9 13:32 Lipase Sent. mb9 13:34 Bed in low position. Call light in reach. Side rails up X 1. Client placed on mb9 continuous cardiac and pulse oximetry monitoring. NIBP monitoring applied. 13:34 No provider procedures requiring assistance completed. mb9 13:38 CT Abd/Pelvis - IV Contrast Only In Process Unspecified. EDMS 13:39 CT Chest For PE Angio In Process Unspecified. EDMS 13:56 EKG done, by ED staff, reviewed by Lisa DEY. mb9 15:24 IV discontinued, intact, bleeding controlled, No redness/swelling at site. Pressure mb9 dressing applied. Administered Medications: 13:25 Drug: NS 0.9% IV 1000 ml IV at 1 bolus Per protocol; 1000 mL bolus Route: IV; Rate: 1 mb9 bolus; Site: right antecubital; 13:25 Drug: Famotidine IVP 20 mg IVP once; dilute with 10 mL 0.9% NaCl; give over 2 minutes mb9 Route: IVP; Site: right antecubital; 14:05 Follow up: Response: No adverse reaction mb9 13:32 Drug: Dicyclomine IM 20 mg IM once Route: IM; Site: left deltoid; mb9 14:05 Follow up: Response: No adverse reaction mb9 13:33 Drug: Ondansetron IVP 4 mg IVP once; over 2 minutes Route: IVP; Site: right antecubital;mb9 14:05 Follow up: Response: No adverse reaction mb9 15:15 Drug: Ondansetron IVP 4 mg IVP once; over 2 minutes Route: IVP; Site: right antecubital;mb9 15:24 Follow up: Response: No adverse reaction mb9 Medication: 13:34 VIS not applicable for this client. mb9 Outcome: 14:55 Discharge ordered by MD. gonzáles 15:24 Discharged to home ambulatory, mb9 15:24 Condition: stable 15:24 Discharge instructions given to patient, Instructed on discharge instructions, follow up and referral plans. Demonstrated understanding of instructions, follow-up care, 15:24 Patient left the ED. mb9 Signatures: Dispatcher [employer] EDMS Lisa Cabrera, DANCE COACH-C DANCE COACH-Christina Augustin, Reg Kimberlee Ernandez, RN RN ap3 Christina Ashton, RN RN mb9 Radha Seals6
[2023-04-27 16:41] VITALS: BP 127/87; O2SAT 98
== END ==
LOC: ER 13:05
DX: R10.13 Epigastric pain (principal); I10 Essential (primary) hypertension; K21.9 Gastro-esophageal reflux disease without esophagitis; F17.210 Nicotine dependence, cigarettes, uncomplicated
CPT/HCPCS: 85025; 36415; 81003; 84484; 83690; 80053; 71275; 74177; Q9967; J0500; J2405 ×2; J7030; 93005; 96372; 96374; 96375; 99284

== ENCOUNTER → 2023-06-01 | Emergency (ER) | payer OTHER ==
[~2023-06-01] MED LIST changes: -DICYCLOMINE HCL 20 MG/2 ML AMP IM ONE; +KETOROLAC 30 MG/ML INJ ONE; -MORPHINE 4 MG/ML SYR ONE
[2023-06-01 23:35] LABS: Absolute Lymphocytes (CBC) 2.1 K/uL (0.7-4.9); Hematocrit 41.3 % (36.0-45.0); Lymphocytes % 32.3 % (15.3-44.8); MCV 92.2 fL (80-100); MPV 7.3 fL (7.6-11.3); Platelets 245 thou/uL (152-406); RBC Red Blood Cell Count 4.48 M/uL (3.86-4.86)
[2023-06-01 23:47] LABS: Urine Bilirubin NEGATIVE (Negative); Urine Blood Negative (Negative); Urine Clarity Clear (Clear); Urine Color Colorless (Yellow); Urine Glucose NEGATIVE (Negative); Urine Protein NEGATIVE (Negative); Urine Urobilinogen Normal (Normal); Urine pH 6.5 (5.0-7.0)
[2023-06-01 23:56] LABS: Albumin 3.9 g/dL (3.4-5.0); Bilirubin Total 0.3 mg/dL (0.2-1.0); Potassium 4.2 mEq/L (3.5-5.1); Protein, Total 7.4 g/dL (6.4-8.2)
--- NOTE | 2023-06-02 00:23 | EDPHYS ---
Physician Documentation [facility] Name: Fany Meza Age: 53 yrs Sex: Female : 1970 Arrival Date: 06/01/2023 Time: 22:43 Bed 8 Private MD: ED Physician Derick Miguel HPI: 06/01 23:35 This 53 yrs old Female presents to ER via Ambulatory with complaints of Abdominal Pain, kb Diarrhea. 23:35 Pt is a 53 year old female who presents for diarrhea for 4 days, nausea and upper right kb abd pain that started today. Denies fever. REports chills last night. . RN STARS: 23:03 LMP N/A - post radiation/chemo, Not lg3 Historical: - Allergies: 23:03 No Known Allergies; lg3 - Home Meds: 23:03 amlodipine 5 mg tab 1 tab once daily [Active]; Famotidine Oral daily [Active]; lg3 - PMHx: 23:03 cervical cancer; Gastroesophageal reflux disease; Hep C; Hypertensive disorder; lg3 - PSHx: 23:03 section; neck; tubal ligation (neck); lg3 - Immunization history:: Adult Immunizations up to date, Client reports receiving the 2nd dose of the Covid vaccine, Flu vaccine is not up to date. - Social history:: Smoking status: Patient reports the use of cigarette tobacco products, smokes one-half pack cigarettes per day, Patient uses alcohol, occasionally. Patient/guardian denies using street drugs. ROS: 23:35 Constitutional: Negative for fever, chills, and weight loss, kb 23:35 Abdomen/GI: Positive for abdominal pain, nausea, diarrhea, 23:35 All other systems are negative, Exam: 23:35 Constitutional: This is a well developed, well nourished patient who is awake, alert, kb and in no acute distress. Head/Face: Normocephalic, atraumatic. ENT: Moist Mucous membranes Cardiovascular: Regular rate Respiratory: Respirations even and unlabored. No increased work of breathing. Talking in full sentences Skin: Warm, dry with normal turgor. Normal color. MS/ Extremity: Pulses equal, no cyanosis. Neurovascular intact. Full, normal range of motion. Neuro: Awake and alert, GCS 15, oriented to person, place, time, and situation. Moves all extremities. Normal gait. 23:35 Abdomen/GI: Inspection: abdomen appears normal, Bowel sounds: normal, Palpation: soft, in all quadrants, moderate abdominal tenderness, in the right upper quadrant, Vital Signs: 23:01 BP 134 / 78; Pulse 70; Resp 17 S; Temp 97.7(TE); Pulse Ox 99% on R/A; Weight 79.38 kg lg3 (R); Height 5 ft. 4 in. (R); 06/02 00:27 BP 131 / 77; Pulse 68; Resp 17 S; Pulse Ox 100% on R/A; lg3 01:15 BP 130 / 75; Pulse 70; Resp 18; Temp 98; Pulse Ox 99% on R/A; as9 06/01 23:01 Body Mass Index 30.04 (79.38 kg, 162.56 cm) lg3 MDM: 06/01 22:49 Patient medically screened. kb 23:36 Differential diagnosis: cholecystitis, Cholelithiasis, gastritis, gastroesophageal kb reflux disease, non-specific abd pain, pancreatitis. Data reviewed: vital signs, nurses notes. 06/02 00:21 Counseling: I had a detailed discussion with the patient and/or guardian regarding the kb historical points, exam findings, and any diagnostic results supporting the discharge/admit diagnosis, lab results, radiology results, the need for outpatient follow up, a family practitioner, to return to the emergency department if symptoms worsen or persist or if there are any questions or concerns that arise at home. 06/01 23:01 Order name: CBC with Diff; Complete Time: 23:38 kb 06/01 23:01 Order name: CMP; Complete Time: 23:58 kb 06/01 23:01 Order name: Lipase; Complete Time: 23:58 kb 06/01 23:01 Order name: Urinalysis w/ reflexes; Complete Time: 23:48 kb 06/01 23:01 Order name: Abdomen Limited US kb 06/01 23:01 Order name: IV Saline Lock; Complete Time: 23:30 kb 06/01 23:01 Order name: Labs collected and sent; Complete Time: 23:30 kb Administered Medications: 00:22 Drug: NS 0.9% IV 1000 ml IV at 1 bolus Per protocol; 1000 mL bolus Route: IV; Rate: 1 lg3 bolus; Site: right antecubital; 01:18 Follow up: IV Status: Completed infusion; IV Intake: 1000ml as9 00:22 Drug: Famotidine IVP 20 mg IVP once; dilute with 10 mL 0.9% NaCl; give over 2 minutes lg3 Route: IVP; Site: right antecubital; 01:26 Follow up: Response: No adverse reaction; Marked relief of symptoms as9 00:22 Drug: TORadol - Ketorolac IVP 15 mg IVP once Route: IVP; Site: right antecubital; lg3 01:19 Follow up: Response: No adverse reaction; Marked relief of symptoms; Pain is decreased as9 00:22 Drug: Ondansetron IVP 4 mg IVP once; over 2 minutes Route: IVP; Site: right antecubital;lg3 01:18 Follow up: Response: No adverse reaction; Marked relief of symptoms as9 Disposition: 00:32 Co-signature as Attending Physician, Derick Miguel MD I agree with the assessment sp4 and plan of care. I reviewed the patient's care provided by the Advanced Practice Provider and agree with the diagnosis and treatment plan. Disposition Summary: 06/02/23 00:22 Discharge Ordered Notes: Location: Home kb Condition: Stable kb Diagnosis - Upper abdominal pain, unspecified kb - Diarrhea, unspecified kb Followup: kb - With: Emergency Department - When: As needed - Reason: Worsening of condition Followup: kb - With: Private Physician - When: 2 - 3 days - Reason: Recheck today's complaints, Continuance of care, Re-evaluation by your physician Discharge Instructions: - Discharge Summary Sheet kb - Food Choices to Help Relieve Diarrhea, Adult kb - Abdominal Pain, Adult, [id number] kb - Diarrhea, Adult, [id number] kb Forms: - Medication Reconciliation Form kb - Thank You Letter kb - Antibiotic Education kb - Prescription Opioid Use kb - Patient Portal Instructions kb - Leadership Thank You Letter kb Prescriptions: - Zofran 4 mg Oral tablet - take 1 tablet ORAL route every 6 hours As needed; 12 tablet; Refills: 0, kb Product Selection Permitted - dicyclomine 20 mg Oral tablet - take 1 tablet ORAL route 4 times per day As needed; 20 tablet; Refills: 0, kb Product Selection Permitted Signatures: Dispatcher [employer] Lisa Sims FNP-C SHOW GIRL-Leticia Bowles RN RN lg3 Derick Miguel MD MD sp4 Mikel Bragg RN as9
--- NOTE | 2023-06-02 00:23 | ER ---
Nurse's Notes [facility] Name: Fany Meza Age: 53 yrs Sex: Female : 1970 Arrival Date: 06/01/2023 Time: 22:43 Bed 8 Private MD: Diagnosis: Upper abdominal pain, unspecified;Diarrhea, unspecified Presentation: 06/01 23:01 Chief complaint: Patient states: diarrhea X4 days. new onset right sided abdominal pain lg3 and nausea starting today. Coronavirus screen: Client denies travel out of the [place] in the last 14 days. At this time, the client does not indicate any symptoms associated with coronavirus-19. Ebola Screen: No symptoms or risks identified at this time. Initial Sepsis Screen: Does the patient meet any 2 criteria? No. Patient's initial sepsis screen is negative. Does the patient have a suspected source of infection? No. Patient's initial sepsis screen is negative. Risk Assessment: Do you want to hurt yourself or someone else? Patient reports no desire to harm self or others. Onset of symptoms was June 01, 2023. 23:01 Method Of Arrival: Ambulatory lg3 23:01 Acuity: SHARAN 3 lg3 Triage Assessment: 23:03 General: Appears in no apparent distress. uncomfortable, Behavior is calm, cooperative. lg3 Pain: Complains of pain in right upper quadrant and right lower quadrant. EENT: No deficits noted. No signs and/or symptoms were reported regarding the EENT system. Neuro: No deficits noted. Meade Agitation-Sedation Scale (RASS): 0 - Alert and Calm Level of Consciousness is awake, alert, obeys commands, Oriented to person, place, time, situation. Cardiovascular: No deficits noted. Denies chest pain, shortness of breath, Capillary refill < 3 seconds Clubbing of nail beds is absent JVD is absent Patient's skin is warm and dry. Respiratory: No deficits noted. Airway is patent Respiratory effort is even, unlabored, Respiratory pattern is regular, symmetrical, Breath sounds are clear bilaterally. GI: Abdomen is round non-distended, obese, Bowel sounds present X 4 quads. Reports lower abdominal pain, upper abdominal pain, diarrhea, nausea. : No deficits noted. No signs and/or symptoms were reported regarding the genitourinary system. Derm: No deficits noted. No signs and/or symptoms reported regarding the dermatologic system. Skin is intact, is healthy with good turgor, Skin is dry, Skin is normal, Skin temperature is warm. Musculoskeletal: No deficits noted. No signs and/or symptoms reported regarding the musculoskeletal system. Circulation, motion, and sensation intact. Range of motion: intact in all extremities. 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 - Social history:: Smoking status: Patient reports the use of cigarette tobacco products, smokes one-half pack cigarettes per day, Patient uses alcohol, occasionally. Patient/guardian denies using street drugs. Screenin/21 00:15 [facility] ED Fall Risk Assessment (Adult) History of falling in the last 3 months, rv including since admission No falls in past 3 months (0 pts) Score/Fall Risk Level 0 - 2 = Low Risk Oriented to surroundings, Maintained a safe environment, Educated pt \T\ family on fall prevention, incl call for assistance when getting out of bed, Assessed \T\ reinforced patient's understanding of fall precautions. Abuse screen: Denies threats or abuse. Denies injuries from another. Nutritional screening: No deficits noted. Tuberculosis screening: No symptoms or risk factors identified. Assessment: 00:16 GI: Abd is soft and non tender X 4 quads. rv 00:21 General: see triage assessment. lg3 00:27 General: pt to DC post fluid administration. lg3 Vital Signs: 06/01 23:01 BP 134 / 78; Pulse 70; Resp 17 S; Temp 97.7(TE); Pulse Ox 99% on R/A; Weight 79.38 kg lg3 (R); Height 5 ft. 4 in. (R); 06/02 00:27 BP 131 / 77; Pulse 68; Resp 17 S; Pulse Ox 100% on R/A; lg3 01:15 BP 130 / 75; Pulse 70; Resp 18; Temp 98; Pulse Ox 99% on R/A; as9 06/01 23:01 Body Mass Index 30.04 (79.38 kg, 162.56 cm) lg3 ED Course: 06/01 22:48 Patient arrived in ED. jj6 22:48 [facility]C [facility]. kb 22:49 Derick Miguel MD is Attending Physician. kb 23:03 Triage completed. lg3 23:03 Arm band placed on left wrist. lg3 23:30 Inserted saline lock: 20 gauge in right antecubital area, using aseptic technique. lg3 Blood collected. 23:30 CBC with Diff Sent. lg3 23:30 CMP Sent. lg3 23:30 Lipase Sent. lg3 23:30 Urinalysis w/ reflexes Sent. lg3 23:40 Abdomen Limited US In Process Unspecified. EDMS 06/02 00:15 Bear Luevano, SCOTTY is Primary Nurse. rv 00:16 Patient has correct armband on for positive identification. rv 00:16 No provider procedures requiring assistance completed. rv 00:22 Derick Miguel MD is Referral Physician. kb 00:22 Referral Physician role handed off by Derick Miguel MD kb 01:21 IV discontinued, intact, bleeding controlled, No redness/swelling at site. Pressure as9 dressing applied. 01:23 Provided Education on: discharge instruction and medication instructions given and as9 explained well to the patient.. Administered Medications: 00:22 Drug: NS 0.9% IV 1000 ml IV at 1 bolus Per protocol; 1000 mL bolus Route: IV; Rate: 1 lg3 bolus; Site: right antecubital; 01:18 Follow up: IV Status: Completed infusion; IV Intake: 1000ml as9 00:22 Drug: Famotidine IVP 20 mg IVP once; dilute with 10 mL 0.9% NaCl; give over 2 minutes lg3 Route: IVP; Site: right antecubital; 01:26 Follow up: Response: No adverse reaction; Marked relief of symptoms as9 00:22 Drug: TORadol - Ketorolac IVP 15 mg IVP once Route: IVP; Site: right antecubital; lg3 01:19 Follow up: Response: No adverse reaction; Marked relief of symptoms; Pain is decreased as9 00:22 Drug: Ondansetron IVP 4 mg IVP once; over 2 minutes Route: IVP; Site: right antecubital;lg3 01:18 Follow up: Response: No adverse reaction; Marked relief of symptoms as9 Medication: 00:15 VIS not applicable for this client. rv Intake: 01:18 IV: 1000ml; Total: 1000ml. as9 Outcome: 00:22 Discharge ordered by MD. gonzáles 01:20 Discharged to home ambulatory, as9 01:20 Condition: good 01:20 Discharge instructions given to patient, Instructed on discharge instructions, follow up and referral plans. medication usage, Demonstrated understanding of instructions, follow-up care, medications, 01:25 Patient left the ED. as9 Signatures: Dispatcher [employer] EDMS Lisa Cabrera, IMPORT EXPORT MANAGER-C IMPORT EXPORT MANAGER-CkBear Edmond, RN SCOTTY Leticia Hanley RN RN lg3 Kortney Celis jj6 Mikel Bragg RN RN as9
[2023-06-02 02:13] VITALS: BP 130/75; TEMP 98; O2SAT 99
--- NOTE | 2023-06-02 12:47 | RAD REPORT ---
EXAM DESCRIPTION: US - Abdomen Exam Limited - 06/01/2023 11:39 pm CLINICAL HISTORY: Abdominal pain COMPARISON: CT Abdomen/Pelvis With Contrast 04/27/2023 report without images TECHNIQUE: Grayscale, color Doppler, and duplex Doppler images of right upper abdomen. FINDINGS: No significant free fluid. Liver parenchyma grossly unremarkable. Main portal vein shows normal antegrade hepatopedal flow. Common bile duct measuring 3 mm diameter and within normal limits. No intra or extrahepatic biliary ductal dilatation. Gallbladder unremarkable without evidence of stones or inflammation. 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 The interpreting r adiologist is fully responsible for the content of the report.
== END ==
LOC: ER 22:43
DX: R10.11 Right upper quadrant pain (principal); R19.7 Diarrhea, unspecified; K21.9 Gastro-esophageal reflux disease without esophagitis; I10 Essential (primary) hypertension; F17.210 Nicotine dependence, cigarettes, uncomplicated
CPT/HCPCS: 36415; 76705; 80053; 81003; 83690; 85025

== ENCOUNTER → 2023-06-05 | Emergency (ER) | payer OTHER ==
[~2023-06-05] MED LIST changes: +CIPROFLOXACIN 400mg IV 400 MG/200 ML BAG IV ONE; +HYDROMORPHONE HCL 1 MG/ML INJ ONE; -KETOROLAC 30 MG/ML INJ ONE; +METRONIDAZOLE 500mg IVPB 500 MG/100 ML BAG IV ONE; +MORPHINE 4 MG/ML SYR ONE
[2023-06-05 15:41] LABS: Specific Gravity 1.009 (1.005-1.030); Urine Bacteria None Seen /HPF (<20); Urine Bilirubin NEGATIVE (Negative); Urine Blood Negative (Negative); Urine Clarity Turbid (Clear); Urine Color Light-Yellow (Yellow); Urine Glucose NEGATIVE (Negative); Urine Mucus Slight /HPF (None Seen); Urine Protein NEGATIVE (Negative); Urine RBC <5 /HPF (None Seen); Urine Urobilinogen Normal (Normal); Urine pH 7.5 (5.0-7.0)
[2023-06-05 15:44] LABS: Absolute Lymphocytes (CBC) 1.5 K/uL (0.7-4.9); Lymphocytes % 22.7 % (15.3-44.8); MCV 92.4 fL (80-100); MPV 7.5 fL (7.6-11.3); Platelets 252 thou/uL (152-406); RBC Red Blood Cell Count 4.54 M/uL (3.86-4.86)
[2023-06-05 15:56] LABS: Albumin 3.7 g/dL (3.4-5.0); Bilirubin Total 0.2 mg/dL (0.2-1.0); Potassium 4.7 mEq/L (3.5-5.1); Protein, Total 7.2 g/dL (6.4-8.2)
--- NOTE | 2023-06-05 16:41 | RAD REPORT ---
EXAM DESCRIPTION: CT - Abdomen Pelvis W Contrast - 06/05/2023 3:56 pm CLINICAL HISTORY: ABD PAIN COMPARISON: Abdomen Pelvis W Contrast dated 04/27/2023; Abdomen Pelvis W Contrast dated 04/16/2023; Abdomen Pelvis W Contrast dated 05/22/2022 TECHNIQUE: Thin cut axial CT imaging of the abdomen and pelvis was performed following intravenous a dministration of 100 mL Isovue 300. Multiplanar reformats were generated and reviewed. All CT scans are performed using dose optimization technique as appropriate and may include automated exposure control or mA/KV adjustment according to patient size. FINDINGS: No suspicious findings in the lung bases. The liver, spleen, adrenal glands, and pancreas show no suspicious findings. Gallbladder is decompres sed limiting evaluation Symmetric renal function is seen with no hydronephrosis or suspicious renal mass. No dilated bowel loops. Segmental wall thickening of the distal sigmoid and rectum, with mild fat str anding in the mesial rectal fat. Appendix is unremarkable. No free air, free fluid or inflammatory st randing. No hernia, mass or bulky lymphadenopathy. The urinary bladder is without significant finding . No suspicious bony findings. IMPRESSION: Segmental wall thickening of the distal sigmoid colon and rectum, suggestive of infectio us or inflammatory proctocolitis. No other acute intra-abdominal process.
--- NOTE | 2023-06-05 18:32 | ER ---
Nurse's Notes [facility] Name: Fany Meza Age: 53 yrs Sex: Female : 1970 Arrival Date: 06/05/2023 Time: 14:34 Bed 20 Private MD: Yolanda Lakhani Diagnosis: Lower abdominal pain, unspecified;Proctocolitis Presentation: 06/05 14:51 Chief complaint: Patient states: RLQ abdominal pain and diarrhea X7 days. Pt states cm10 that the pain radiates to her back and describes the pain as a sharp pain. Coronavirus screen: Vaccine status: Patient reports receiving the 2nd dose of the covid vaccine. Client denies travel out of the [place] in the last 14 days. Ebola Screen: Patient denies travel to an Ebola-affected area in the 21 days before illness onset. No symptoms or risks identified at this time. Initial Sepsis Screen: Does the patient meet any 2 criteria? No. Patient's initial sepsis screen is negative. Does the patient have a suspected source of infection? No. Patient's initial sepsis screen is negative. Risk Assessment: Do you want to hurt yourself or someone else? Patient reports no desire to harm self or others. Onset of symptoms was May 29, 2023. 14:51 Method Of Arrival: Ambulatory cm10 14:51 Acuity: SHARAN 3 cm10 Historical: - Allergies: 14:52 No Known Allergies; cm10 - Home Meds: 15:32 amlodipine 5 mg tab 1 tab once daily [Active]; Famotidine Oral daily [Active]; hb - PMHx: 14:52 cervical cancer; Gastroesophageal reflux disease; Hep C; Hep C; Hypertensive disorder; cm10 - PSHx: 14:52 section; neck; tubal ligation (neck); cm10 - Immunization history:: Adult Immunizations up to date. - Social history:: Smoking status: Patient reports the use of cigarette tobacco products, denies chronic smoking, but will smoke occasionally. Screenin:31 [facility] ED Fall Risk Assessment (Adult) Score/Fall Risk Level 0 - 2 = Low Risk hb Oriented to surroundings, Maintained a safe environment, Educated pt \T\ family on fall prevention, incl call for assistance when getting out of bed. Abuse screen: Denies threats or abuse. Denies injuries from another. Nutritional screening: No deficits noted. Tuberculosis screening: No symptoms or risk factors identified. Assessment: 15:31 General: Appears in no apparent distress. Behavior is calm, cooperative. Pain: Pain hb currently is 5 out of 10 on a pain scale. Neuro: Level of Consciousness is awake, alert, obeys commands, Oriented to person, place, time, situation. Cardiovascular: Patient's skin is warm and dry. Respiratory: Respiratory effort is even, unlabored, Respiratory pattern is regular, symmetrical. GI: Reports lower abdominal pain, upper abdominal pain, diarrhea, nausea. : No signs and/or symptoms were reported regarding the genitourinary system. EENT: No signs and/or symptoms were reported regarding the EENT system. Derm: Skin is pink, warm \T\ dry. Musculoskeletal: No signs and/or symptoms reported regarding the musculoskeletal system. 16:15 Reassessment: Patient appears in no apparent distress at this time. No changes from kc6 previously documented assessment. Patient and/or family updated on plan of care and expected duration. Pain level reassessed. Patient is alert, oriented x 3, equal unlabored respirations, skin warm/dry/pink. 17:07 Reassessment: Patient appears in no apparent distress at this time. No changes from kc6 previously documented assessment. Patient and/or family updated on plan of care and expected duration. Pain level reassessed. Patient is alert, oriented x 3, equal unlabored respirations, skin warm/dry/pink. 18:04 Reassessment: Patient appears in no apparent distress at this time. No changes from kc6 previously documented assessment. Patient and/or family updated on plan of care and expected duration. Pain level reassessed. Patient is alert, oriented x 3, equal unlabored respirations, skin warm/dry/pink. Patient denies pain at this time. Patient states feeling better. Patient states symptoms have improved. Vital Signs: 14:51 BP 126 / 96; Pulse 87; Resp 16; Temp 98.2; Pulse Ox 99% on R/A; Weight 79.38 kg; Height cm10 5 ft. 4 in. ; Pain 5/10; 16:15 BP 133 / 95; Pulse 81; Resp 17 S; Pulse Ox 95% on R/A; kc6 17:07 BP 131 / 84; Pulse 65; Resp 16 S; Pulse Ox 97% on R/A; kc6 18:04 BP 132 / 82; Pulse 60; Resp 16 S; Pulse Ox 95% on R/A; kc6 14:51 Body Mass Index 30.04 (79.38 kg, 162.56 cm) cm10 14:51 Pain Scale: Adult cm10 ED Course: 14:40 Patient arrived in ED. mr 14:40 Yolanda Lakhani is Private Physician. mr 14:41 Karl Dykes MD is Attending Physician. kdr 14:52 Triage completed. cm10 14:52 Arm band placed on Patient placed in an exam room, on a stretcher. cm10 15:10 Linda Dalton, RN is Primary Nurse. hb 15:17 Yanci Zuñiga, SCOTTY is Primary Nurse. kc6 15:30 CBC with Diff Sent. hb 15:31 CMP Sent. hb 15:31 Lipase Sent. hb 15:31 Urinalysis w/ reflexes Sent. hb 15:31 Initial lab(s) drawn, by ct, sent to lab. Inserted saline lock: 20 gauge in right cm10 antecubital area, using aseptic technique. Blood collected. 15:32 Patient has correct armband on for positive identification. Provided Education on: hb tests, result times. 15:58 CT Abd/Pelvis - IV Contrast Only In Process Unspecified. EDMS 18:30 Yolanda Lakhani is Referral Physician. kdr 18:54 No provider procedures requiring assistance completed. IV discontinued, intact, kc6 bleeding controlled, No redness/swelling at site. Pressure dressing applied. Administered Medications: 15:30 Drug: NS 0.9% IV 1000 ml IV at 1 bolus Per protocol; 1000 mL bolus Route: IV; Rate: 1 hb bolus; Site: right antecubital; 17:18 Follow up: Response: No adverse reaction; IV Status: Completed infusion; IV Intake: kc6 1000ml 15:30 Drug: Ondansetron IVP 4 mg IVP once; over 2 minutes Route: IVP; Site: right antecubital;hb 17:07 Follow up: Response: No adverse reaction; Nausea is decreased; Vomiting decreased kc6 16:13 Drug: metroNIDAZOLE IVPB 500 mg 100 ml IVPB at 200 ml/hr once over 30 mins Volume: 100 kc6 ml; Route: IVPB; Rate: 200 ml/hr; Infused Over: 30 mins; Site: right antecubital; 17:18 Follow up: Response: No adverse reaction; IV Status: Completed infusion; IV Intake: kc6 100ml 16:13 Drug: Ciprofloxacin IVPB 400 mg 200 ml IVPB once over 60 mins Volume: 200 ml; Route: kc6 IVPB; Infused Over: 60 mins; Site: right antecubital; 17:18 Follow up: Response: No adverse reaction; IV Status: Completed infusion; IV Intake: kc6 200ml 16:13 Drug: morphine IVP or IV 4 mg IVP once over 4 mins Route: IVP; Infused Over: 4 mins; kc6 Site: right antecubital; 17:07 Follow up: Response: No adverse reaction; Pain is decreased; RASS: Alert and Calm (0) kc6 16:13 Drug: Famotidine IVP 20 mg IVP once; dilute with 10 mL 0.9% NaCl; give over 2 minutes kc6 Route: IVP; Site: right antecubital; 17:07 Follow up: Response: No adverse reaction kc6 17:18 Drug: HYDROmorphone IVP 1 mg IVP once Route: IVP; Site: right antecubital; kc6 18:04 Follow up: Response: No adverse reaction; Pain is decreased; RASS: Alert and Calm (0) kc6 Medication: 15:32 VIS not applicable for this client. hb Intake: 17:18 IV: 200ml; Total: 200ml. kc6 17:18 IV: 100ml; Total: 300ml. kc6 17:18 IV: 1000ml; Total: 1300ml. kc6 Outcome: 18:31 Discharge ordered by . kdr 18:54 Discharged to home ambulatory, kc6 18:54 Condition: improved 18:54 Discharge instructions given to patient, Instructed on discharge instructions, follow up and referral plans. medication usage, Demonstrated understanding of instructions, follow-up care, medications, Prescriptions given X 4, 18:54 Patient left the ED. kc6 Signatures: Dispatcher [employer] EDMS Karl Dykes MD MD kdr Rivera, Mary, Reg Reg mr Linda Dalton, RN Yanci Rivera RN RN kc6 Martinez, Clarissa, RN RN cm10 Corrections: (The following items were deleted from the chart) 18:05 18:04 Reassessment: Patient appears in no apparent distress at this time. No changes kc6 from previously documented assessment. Patient and/or family updated on plan of care and expected duration. Pain level reassessed. Patient is alert, oriented x 3, equal unlabored respirations, skin warm/dry/pink. kc6
--- NOTE | 2023-06-05 18:32 | EDPHYS ---
Physician Documentation [facility] Name: Fany Meza Age: 53 yrs Sex: Female : 1970 Arrival Date: 06/05/2023 Time: 14:34 Bed 20 Private MD: Yolanda Lakhani ED Physician Karl Dykes HPI: 06/05 19:14 This 53 yrs old Female presents to ER via Ambulatory with complaints of Abdominal Pain. kdr 19:15 Patient presents with right lower quadrant abdominal pain and diarrhea for about 7 kdr days. Patient states that the pain radiates to her back. She has not had this pain before. The pain is described as sharp. Patient has some apparent rebound tenderness as well. Patient is otherwise is not toxic appearing but does appear mild to moderately uncomfortable. Onset: The symptoms/episode began/occurred gradually, 1 week(s) ago. Severity of symptoms: At their worst the symptoms were mild moderate today, in the emergency department the symptoms are unchanged. The patient has not experienced similar symptoms in the past. The patient has not recently seen a physician. Historical: - Allergies: 14:52 No Known Allergies; cm10 - Home Meds: 15:32 amlodipine 5 mg tab 1 tab once daily [Active]; Famotidine Oral daily [Active]; hb - PMHx: 14:52 cervical cancer; Gastroesophageal reflux disease; Hep C; Hep C; Hypertensive disorder; cm10 - PSHx: 14:52 section; neck; tubal ligation (neck); cm10 - Immunization history:: Adult Immunizations up to date. - Social history:: Smoking status: Patient reports the use of cigarette tobacco products, denies chronic smoking, but will smoke occasionally. ROS: 19:15 Constitutional: Negative for fever, chills, and weight loss, Eyes: Negative for injury, kdr pain, redness, and discharge, ENT: Negative for injury, pain, and discharge, Neck: Negative for injury, pain, and swelling, Cardiovascular: Negative for chest pain, palpitations, and edema, Respiratory: Negative for shortness of breath, cough, wheezing, and pleuritic chest pain, Back: Negative for injury and pain, : Negative for injury, bleeding, discharge, and swelling, MS/Extremity: Negative for injury and deformity, Skin: Negative for injury, rash, and discoloration, Neuro: Negative for headache, weakness, numbness, tingling, and seizure activity. Psych: Negative for depression, anxiety, suicide ideation, homicidal ideation, and hallucinations, Allergy/Immunology: Negative for hives, rash, and allergies, Endocrine: Negative for neck swelling, polydipsia, polyuria, polyphagia, and marked weight changes, Hematologic/Lymphatic: Negative for swollen nodes, abnormal bleeding, and unusual bruising, 19:15 Abdomen/GI: Positive for abdominal pain, nausea, diarrhea, Negative for black/tarry stool, rectal pain, rectal bleeding, Exam: 19:15 Constitutional: This is a well developed, well nourished patient who is awake, alert, kdr and in no acute distress. Head/Face: Normocephalic, atraumatic. Eyes: Pupils equal round and reactive to light, extra-ocular motions intact. Lids and lashes normal. Conjunctiva and sclera are non-icteric and not injected. Cornea within normal limits. Periorbital areas with no swelling, redness, or edema. Neck: Trachea midline, no thyromegaly or masses palpated, and no cervical lymphadenopathy. Supple, full range of motion without nuchal rigidity, or vertebral point tenderness. No Meningismus. Chest/axilla: Normal chest wall appearance and motion. Nontender with no deformity. No lesions are appreciated. Cardiovascular: Regular rate and rhythm with a normal S1 and S2. No gallops, murmurs, or rubs. Normal PMI, no JVD. No pulse deficits. Respiratory: Lungs have equal breath sounds bilaterally, clear to auscultation and percussion. No rales, rhonchi or wheezes noted. No increased work of breathing, no retractions or nasal flaring. Back: No spinal tenderness. No costovertebral tenderness. Full range of motion. Skin: Warm, dry with normal turgor. Normal color with no rashes, no lesions, and no evidence of cellulitis. MS/ Extremity: Pulses equal, no cyanosis. Neurovascular intact. Full, normal range of motion. Neuro: Awake and alert, GCS 15, oriented to person, place, time, and situation. Cranial nerves II-XII grossly intact. Motor strength 5/5 in all extremities. Sensory grossly intact. Cerebellar exam normal. Normal gait. Psych: Awake, alert, with orientation to person, place and time. Behavior, mood, and affect are within normal limits. 19:15 Abdomen/GI: Inspection: abdomen appears normal, Bowel sounds: active, diminished, in all quadrants, Palpation: nontender, mild abdominal tenderness, in the right lower quadrant, rebound tenderness, is appreciated in the right lower quadrant, Vital Signs: 14:51 BP 126 / 96; Pulse 87; Resp 16; Temp 98.2; Pulse Ox 99% on R/A; Weight 79.38 kg; Height cm10 5 ft. 4 in. ; Pain 5/10; 16:15 BP 133 / 95; Pulse 81; Resp 17 S; Pulse Ox 95% on R/A; kc6 17:07 BP 131 / 84; Pulse 65; Resp 16 S; Pulse Ox 97% on R/A; kc6 18:04 BP 132 / 82; Pulse 60; Resp 16 S; Pulse Ox 95% on R/A; kc6 14:51 Body Mass Index 30.04 (79.38 kg, 162.56 cm) cm10 14:51 Pain Scale: Adult cm10 MDM: 18:31 Patient medically screened. kdr 19:15 Data reviewed: vital signs, nurses notes, lab test result(s), radiologic studies. ED kdr course: I discussed the case with Dr. Ndiaye. He agreed to discharge on antibiotics and pain medication with follow-up was appropriate. The laboratory work was all normal which I discussed with the patient. The patient was thankful for the care provided and the plan for discharge and follow-up. Patient was otherwise stable. She was discharged in good condition.. 06/05 15:24 Order name: CBC with Diff; Complete Time: 16:32 cm10 06/05 15:24 Order name: CMP; Complete Time: 16:32 cm10 06/05 15:24 Order name: Lipase; Complete Time: 16:32 cm10 06/05 15:24 Order name: Urinalysis w/ reflexes; Complete Time: 16:32 cm10 06/05 15:36 Order name: CT Abd/Pelvis - IV Contrast Only; Complete Time: 16:53 kdr 06/05 15:24 Order name: IV Saline Lock; Complete Time: 15:30 cm10 06/05 15:24 Order name: Labs collected and sent; Complete Time: 15:30 cm10 Administered Medications: 15:30 Drug: NS 0.9% IV 1000 ml IV at 1 bolus Per protocol; 1000 mL bolus Route: IV; Rate: 1 hb bolus; Site: right antecubital; 17:18 Follow up: Response: No adverse reaction; IV Status: Completed infusion; IV Intake: kc6 1000ml 15:30 Drug: Ondansetron IVP 4 mg IVP once; over 2 minutes Route: IVP; Site: right antecubital;hb 17:07 Follow up: Response: No adverse reaction; Nausea is decreased; Vomiting decreased kc6 16:13 Drug: metroNIDAZOLE IVPB 500 mg 100 ml IVPB at 200 ml/hr once over 30 mins Volume: 100 kc6 ml; Route: IVPB; Rate: 200 ml/hr; Infused Over: 30 mins; Site: right antecubital; 17:18 Follow up: Response: No adverse reaction; IV Status: Completed infusion; IV Intake: kc6 100ml 16:13 Drug: Ciprofloxacin IVPB 400 mg 200 ml IVPB once over 60 mins Volume: 200 ml; Route: kc6 IVPB; Infused Over: 60 mins; Site: right antecubital; 17:18 Follow up: Response: No adverse reaction; IV Status: Completed infusion; IV Intake: kc6 200ml 16:13 Drug: morphine IVP or IV 4 mg IVP once over 4 mins Route: IVP; Infused Over: 4 mins; kc6 Site: right antecubital; 17:07 Follow up: Response: No adverse reaction; Pain is decreased; RASS: Alert and Calm (0) [facility] 16:13 Drug: Famotidine IVP 20 mg IVP once; dilute with 10 mL 0.9% NaCl; give over 2 minutes kc6 Route: IVP; Site: right antecubital; 17:07 Follow up: Response: No adverse reaction [facility] 17:18 Drug: HYDROmorphone IVP 1 mg IVP once Route: IVP; Site: right antecubital; kc6 18:04 Follow up: Response: No adverse reaction; Pain is decreased; RASS: Alert and Calm (0) kc6 Disposition Summary: 06/05/23 18:31 Discharge Ordered Problem: new kdr Symptoms: have improved kdr Condition: Stable kdr Diagnosis - Lower abdominal pain, unspecified kdr - Proctocolitis kdr Followup: kdr - With: Yolanda Lakhani - When: 2 - 3 days - Reason: If symptoms return, Further diagnostic work-up, Recheck today's complaints, Continuance of care, Re-evaluation by your physician Discharge Instructions: - Discharge Summary Sheet kdr Forms: - Medication Reconciliation Form kdr - Thank You Letter kdr - Antibiotic Education kdr - Prescription Opioid Use kdr - Patient Portal Instructions kdr - Leadership Thank You Letter kdr Prescriptions: - acetaminophen-codeine 300-30 mg Oral tablet - take 2 tablet ORAL route every 4 to 6 hours As needed as needed for pain; 16 kdr tablet; Refills: 0, Product Selection Permitted - Flagyl 500 mg Oral Tablet - take 1 tablet ORAL route every 6 hours for 10 days; 40 tablet; Refills: 0, kdr Product Selection Permitted - Zofran 4 mg Oral tablet - take 1 tablet ORAL route every 4-6 hours As needed; 12 tablet; Refills: 0, kdr Product Selection Permitted - Cipro 500 mg Oral Tablet - take 1 tablet ORAL route every 12 hours for 7 days; 14 tablet; Refills: 0, kdr Product Selection Permitted Signatures: Dispatcher [employer] Karl Suggs MD MD kdr Linda Dalton, RN RN Yanci Zuñiga RN RN kc6 Jaimie Reyes RN RN cm10
[2023-06-05 19:15] VITALS: BP 132/82; TEMP 98.2; O2SAT 95
== END ==
LOC: ER 14:34
DX: K51.30 Ulcerative (chronic) rectosigmoiditis without complications (principal); I10 Essential (primary) hypertension; F17.210 Nicotine dependence, cigarettes, uncomplicated
CPT/HCPCS: 85025; 81001; 36415; 83690; 80053; 74177; Q9967; J1170; J2405; J0744; J7030; 96361; 96365; 96368; 96375; 99284

== ENCOUNTER 2023-07-22 10:39 | Emergency (ER) | payer OTHER ==
--- NOTE | 2023-07-22 11:24 | RAD REPORT ---
EXAM DESCRIPTION: RAD - Chest Single View - 07/22/2023 11:10 am CLINICAL HISTORY: CHEST PAIN COMPARISON: Chest Single View dated 04/16/2023; Chest Single View dated 02/18/2023; Chest Single View d ated 12/27/2022; Chest Single View dated 12/03/2022 FINDINGS: Lines: None. Lungs: No evidence of edema or pneumonia. Pleural: No significant pleural effusions or pneumothorax. Cardiac: The heart size is within normal limits. Mediastinum: Within normal limits. Bones: No acute fractures. Other: None IMPRESSION: No acute cardiopulmonary disease.
[2023-07-22 11:34] LABS: Absolute Lymphocytes (CBC) 1.7 K/uL (0.7-4.9); Absolute Monocytes 0.7 K/uL (0.1-1.3); Absolute Neutrophil 6.2 K/uL (1.8-8.0); Basophils % 0.5 % (0-1.3); Eosinophils % 0.3 % (0-4.4); Hematocrit 44.4 % (36.0-45.0); Hemoglobin 14.8 g/dL (12.0-15.0); Lymphocytes % 19.3 % (15.3-44.8); MCH 30.8 pg (27.0-35.0); MCHC 33.3 g/dL (32.0-36.0); MCV 92.4 fL (80-100); MPV 8.4 fL (7.6-11.3); Monocytes % 8.2 % (3.3-12.3); Neutrophils % 71.7 % (41.7-73.7); Platelets 266 thou/uL (152-406); Red Cell Distribution Width 14.4 % (12.1-15.2)
[2023-07-22 11:35] LABS: Specific Gravity 1.005 (1.005-1.030); Urine Bilirubin NEGATIVE (Negative); Urine Blood Negative (Negative); Urine Clarity Clear (Clear); Urine Color Light-Yellow (Yellow); Urine Glucose NEGATIVE (Negative); Urine Ketones NEGATIVE (Negative); Urine Microscopic Reflex YN NO UMIC; Urine Nitrite NEGATIVE (Negative); Urine Protein NEGATIVE (Negative); Urine Urobilinogen Normal (Normal); Urine pH 5.5 (5.0-7.0)
[2023-07-22 11:40] LABS: PT Prothrombin Time 11.5 SECONDS (9.5-12.5); Protime INR 1.05
[2023-07-22 11:56] LABS: ALT/SGPT 24 U/L (13-56); AST/SGOT 18 U/L (15-37); Albumin 4.5 g/dL (3.4-5.0); Albumin/Globulin Ratio 1.5 (1.1-1.8); Alkaline Phosphatase 54 U/L (45-117); Anion Gap 8.9 mEq/L (5.0-15.0); BUN Blood Urea Nitrogen 14 mg/dL (7-18); Bicarbonate 27 mEq/L (21-32); Bilirubin Direct 0.1 mg/dL (0-0.2); Bilirubin Indirect, Calculated 0.2 mg/dL (0.2-0.8); Bilirubin Total 0.3 mg/dL (0.2-1.0); Glomerular Filtration Rate 83 ml/min (=/>90); Glucose Level 111 mg/dL (74-106); Lipase 30 U/L (13-75); Magnesium 2.1 mg/dL (1.6-2.4); NT PRO-BNP 64 pg/mL (<125); Potassium 3.9 mEq/L (3.5-5.1); Protein, Total 7.5 g/dL (6.4-8.2); Sodium Level 143 mEq/L (136-145); Troponin High Sensitivity < 3.0 pg/mL (<58.9)
[2023-07-22] MEDS ORDERED: ASPIRIN 81 MG CHEWABLE TABLET ONE (13:02)
[2023-07-22] MEDS ORDERED: NA CHLORIDE 0.9% 500 ML ONE (13:02)
--- NOTE | 2023-07-22 14:40 | ER ---
Nurse's Notes [facility] Name: Fany Meza Age: 53 yrs Sex: Female : 1970 Arrival Date: 07/22/2023 Time: 10:39 Bed 19 Private MD: Yolanda Lakhani Diagnosis: Gastro-esophageal reflux disease with esophagitis;Palpitations;Chest pain, unspecified;Tobacco abuse counseling;Tobacco use Presentation: 07/21 10:47 Chief complaint: Patient states: Pain under L breast since yesterday. Believes it might ll1 be GERD. Coronavirus screen: Client denies travel out of the [place] in the last 14 days. At this time, the client does not indicate any symptoms associated with coronavirus-19. Ebola Screen: Patient denies travel to an Ebola-affected area in the 21 days before illness onset. Initial Sepsis Screen: Does the patient meet any 2 criteria? No. Patient's initial sepsis screen is negative. Does the patient have a suspected source of infection? No. Patient's initial sepsis screen is negative. Risk Assessment: Do you want to hurt yourself or someone else? Patient reports no desire to harm self or others. Onset of symptoms was July 21, 2023. 10:47 Method Of Arrival: Ambulatory ll1 10:47 Acuity: SHARAN 3 ll1 Triage Assessment: 10:48 General: Appears uncomfortable, Behavior is calm, cooperative, appropriate for age. ll1 Pain: Complains of pain in under L breast Quality of pain is described as aching. Cardiovascular: Reports chest pain. Historical: - Allergies: 10:43 No Known Allergies; ll1 - PMHx: 10:43 cervical cancer; Gastroesophageal reflux disease; Hep C; Hypertensive disorder; ll1 - PSHx: 10:43 section; neck; tubal ligation (neck); ll1 - Immunization history:: Adult Immunizations up to date. - Infectious Disease History:: Denies. - Social history:: Smoking status: Patient denies any tobacco usage or history of. Screenin:11 [facility] ED Fall Risk Assessment (Adult) History of falling in the last 3 months, nj1 including since admission No falls in past 3 months (0 pts) Confusion or Disorientation No (0 pts) Intoxicated or Sedated No (0 pts) Impaired Gait Yes (1 pt) Mobility Assist Device Used No (0 pt) Altered Elimination No (0 pt) Score/Fall Risk Level 0 - 2 = Low Risk Oriented to surroundings, Maintained a safe environment, Hourly rounding (assess needs \T\ fall precautionary measures) done. Abuse screen: Denies threats or abuse. Denies injuries from another. Nutritional screening: No deficits noted. Tuberculosis screening: No symptoms or risk factors identified. Assessment: 13:10 General: Appears in no apparent distress. comfortable, Behavior is calm, cooperative, nj1 appropriate for age. Pain: Complains of pain in chest Pain does not radiate. Pain currently is 2 out of 10 on a pain scale. Neuro: No deficits noted. Cardiovascular: Patient's skin is warm and dry. Rhythm is regular Chest pain is located in left anterior. Respiratory: Airway is patent Respiratory effort is even, unlabored. 14:17 Reassessment: Patient appears in no apparent distress at this time. Patient and/or nj1 family updated on plan of care and expected duration. Pain level reassessed. Patient is alert, oriented x 3, equal unlabored respirations, skin warm/dry/pink. Patient states feeling better. Patient states symptoms have improved. 14:35 Reassessment: Pt has removed blood pressure cuff, pulse oxymeter and cardiac leads off, nj1 requesting for IV access to be removed at this time, pt does not want to wait for discharge paperwork. Vital Signs: 10:47 BP 136 / 99; Pulse 83; Resp 16; Temp 97.4; Pulse Ox 99% ; Weight 77.56 kg; Height 5 ft. ll1 4 in. ; Pain 4/10; 13:00 BP 136 / 107; Pulse 70; Resp 16; Pulse Ox 99% ; Pain 2/10; nj1 14:18 BP 130 / 80; Pulse 58; Resp 19; Pulse Ox 98% on R/A; nj1 10:47 Body Mass Index 29.35 (77.56 kg, 162.56 cm) ll1 10:47 Pain Scale: Adult ll1 13:00 Pain Scale: Adult nj1 ED Course: 10:42 Patient arrived in ED. mr 10:42 Yolanda Lakhani is Private Physician. mr 10:43 Arm band placed on. ll1 10:46 Nigel Knight MD is Attending Physician. [facility] 10:49 Triage completed. ll1 11:11 XRAY Chest (1 view) In Process Unspecified. EDSD 11:22 Initial lab(s) drawn, by ri, sent to lab. Urine collected: clean catch specimen, clear, [id number] EKG done. Inserted saline lock: 20 gauge in right antecubital area, using aseptic technique. Blood collected. 12:59 Briana Brown, RN is Primary Nurse. nj 13:10 Patient has correct armband on for positive identification. Bed in low position. Call nj1 light in reach. Provided Education on: call light, fall precautions. Client placed on continuous cardiac and pulse oximetry monitoring. NIBP monitoring applied. school lunch monitor on. 14:35 IV discontinued, intact, bleeding controlled, Pressure dressing applied. [facility] 14:38 Yolanda Lakhani is Referral Physician. [facility] 14:38 Dion Araujo MD is Referral Physician. [facility] 14:45 No provider procedures requiring assistance completed. nj1 Administered Medications: 13:04 Drug: NS 0.9% IV 500 ml IV at bolus once Route: IV; Rate: bolus; Site: right md1 antecubital; 14:21 Follow up: Response: No adverse reaction; IV Status: Completed infusion; IV Intake: nj1 500ml 13:04 Drug: Aspirin PO Chewable Tablet 162 mg PO once Route: PO; nj1 14:21 Follow up: Response: No adverse reaction [facility] 14:46 Not Given (Patient Refused): toprol xl25 mg PO once [facility] Medication: 14:53 VIS not applicable for this client. nj1 Intake: 14:21 IV: 500ml; Total: 500ml. [facility] Outcome: 14:39 Discharge ordered by . [facility] 14:45 Discharged to home ambulatory, [facility] 14:45 Condition: stable 14:45 Discharge instructions given to patient, Instructed on discharge instructions, follow up and referral plans. Demonstrated understanding of instructions, follow-up care, 14:49 Patient left the ED. nj Signatures: Dispatcher [employer] EDSD Nigel Knight MD MD cha Rivera, Mary, Reg Reg mr GloverJef, RN RN ll1 Briana Brown, RN RN Francesco Blum [id number] Corrections: (The following items were deleted from the chart) 10:43 10:43 PMHx: Hep C; ll1 ll1 14:53 14:45 Discharged to home ambulatory, [place] [id number] 14:55 14:45 IV discontinued, intact, bleeding controlled, Pressure dressing applied, nj1 nj1
--- NOTE | 2023-07-22 14:40 | EDPHYS ---
Physician Documentation [facility] Name: Fany Meza Age: 53 yrs Sex: Female : 1970 Arrival Date: 07/22/2023 Time: 10:39 Bed 19 Private MD: Yolanda Lakhani ED Physician Nigel Knight HPI: 07/21 14:29 This 53 yrs old Female presents to ER via Ambulatory with complaints of Chest stephen Pain. 14:29 The patient or guardian reports chest pain that is located primarily in the anterior stephen chest wall. Onset: 3 day(s) ago. The pain does not radiate. Associated signs and symptoms: Pertinent positives: None. The chest pain is described as aching. Duration: The patient or guardian reports multiple episodes, with no pattern. Modifying factors: The symptoms are alleviated by nothing. the symptoms are aggravated by nothing. Severity of pain: At its worst the pain was mild in the emergency department the pain is unchanged. The patient has experienced similar episodes in the past, several times. Historical: - Allergies: 10:43 No Known Allergies; ll1 - PMHx: 10:43 cervical cancer; Gastroesophageal reflux disease; Hep C; Hypertensive disorder; ll1 - PSHx: 10:43 section; neck; tubal ligation (neck); ll1 - Immunization history:: Adult Immunizations up to date. - Infectious Disease History:: Denies. - Social history:: Smoking status: Patient denies any tobacco usage or history of. ROS: 14:31 Constitutional: Negative for fever, chills, and weight loss, Eyes: Negative for injury, stephen pain, redness, and discharge, ENT: Negative for injury, pain, and discharge, Neck: Negative for injury, pain, and swelling, Respiratory: Negative for shortness of breath, cough, wheezing, and pleuritic chest pain, Abdomen/GI: Negative for abdominal pain, nausea, vomiting, diarrhea, and constipation, Back: Negative for injury and pain, : Negative for injury, bleeding, discharge, and swelling, MS/Extremity: Negative for injury and deformity, Skin: Negative for injury, rash, and discoloration, Neuro: Negative for headache, weakness, numbness, tingling, and seizure, Psych: Negative for depression, anxiety, suicide ideation, homicidal ideation, and hallucinations, Allergy/Immunology: Negative for hives, rash, and allergies, Endocrine: Negative for neck swelling, polydipsia, polyuria, polyphagia, and marked weight changes, Hematologic/Lymphatic: Negative for swollen nodes, abnormal bleeding, and unusual bruising, 14:31 Cardiovascular: Positive for chest pain, palpitations, Exam: 14:31 Constitutional: This is a well developed, well nourished patient who is awake, alert, stephen and in no acute distress. Head/Face: Normocephalic, atraumatic. Eyes: Pupils equal round and reactive to light, extra-ocular motions intact. Lids and lashes normal. Conjunctiva and sclera are non-icteric and not injected. Cornea within normal limits. Periorbital areas with no swelling, redness, or edema. ENT: Nares patent. No nasal discharge, no septal abnormalities noted. Tympanic membranes are normal and external auditory canals are clear. Oropharynx with no redness, swelling, or masses, exudates, or evidence of obstruction, uvula midline. Mucous membranes moist. Neck: Trachea midline, no thyromegaly or masses palpated, and no cervical lymphadenopathy. Supple, full range of motion without nuchal rigidity, or vertebral point tenderness. No Meningismus. Chest/axilla: Normal chest wall appearance and motion. Nontender with no deformity. No lesions are appreciated. Cardiovascular: Regular rate and rhythm with a normal S1 and S2. No gallops, murmurs, or rubs. Normal PMI, no JVD. No pulse deficits. Respiratory: Lungs have equal breath sounds bilaterally, clear to auscultation and percussion. No rales, rhonchi or wheezes noted. No increased work of breathing, no retractions or nasal flaring. Abdomen/GI: Soft, non-tender, with normal bowel sounds. No distension or tympany. No guarding or rebound. No evidence of tenderness throughout. Back: No spinal tenderness. No costovertebral tenderness. Full range of motion. Female : Normal external genitalia. Skin: Warm, dry with normal turgor. Normal color with no rashes, no lesions, and no evidence of cellulitis. MS/ Extremity: Pulses equal, no cyanosis. Neurovascular intact. Full, normal range of motion. Neuro: Awake and alert, GCS 15, oriented to person, place, time, and situation. Cranial nerves II-XII grossly intact. Motor strength 5/5 in all extremities. Sensory grossly intact. Cerebellar exam normal. Normal gait. Psych: Awake, alert, with orientation to person, place and time. Behavior, mood, and affect are within normal limits. 14:31 ECG was reviewed by the Attending Physician. Vital Signs: 10:47 BP 136 / 99; Pulse 83; Resp 16; Temp 97.4; Pulse Ox 99% ; Weight 77.56 kg; Height 5 ft. ll1 4 in. ; Pain 4/10; 13:00 BP 136 / 107; Pulse 70; Resp 16; Pulse Ox 99% ; Pain 2/10; nj1 14:18 BP 130 / 80; Pulse 58; Resp 19; Pulse Ox 98% on R/A; nj1 10:47 Body Mass Index 29.35 (77.56 kg, 162.56 cm) ll1 10:47 Pain Scale: Adult ll1 13:00 Pain Scale: Adult nj1 MDM: 10:46 Patient medically screened. stephen 14:35 Differential diagnosis: abnormal EKG, acute pericarditis, anxiety, chest wall pain, stephen Cholelithiasis arrythmia, dehydration, gastritis, pancreatitis, peptic ulcer disease, pericarditis, pulmonary embolus, stable angina, unstable angina. HEART Score: History: Slightly Suspicious (0), ECG: Non specific repolarization disturbance / LBTB / PM (1), Age: > 45 and < 65 years (1), Risk Factors: > or = 3 Risk factors for atherosclerotic disease (2), [Hypertension] [Active Smoker] [+ Family HX] [Obesity] Troponin: < or = 1 x Normal Limit (0). The patient was given aspirin in the Emergency Department. DEBBIE Risk Score: 1 - Three or more CAD risk factors, TOTAL SCORE = 1. Data reviewed: vital signs, nurses notes, lab test result(s), EKG, radiologic studies, plain films. Consideration of Admission/Observation Escalation of care including admission/observation considered. I considered the following discharge prescriptions or medication management in the emergency department Medications were administered in the Emergency Department. See MAR. Independent interpretation of the following test(s) in the Emergency Department EKG: See my EKG interpretation above. Test considered but Not performed: CT: no ct chest. Historians other than the Patient: pt very well informed. Care significantly affected by the following chronic conditions: Hypertension, gerd, hep c, cervical cancer. 07/21 10:47 Order name: Basic Metabolic Panel; Complete Time: 14:23 07/21 10:47 Order name: CBC with Diff 07/21 10:47 Order name: D-Dimer; Complete Time: 14:23 [facility] 07/21 10:47 Order name: LFT's; Complete Time: 14:23 stephen 07/21 10:47 Order name: Magnesium; Complete Time: 14:23 07/21 10:47 Order name: NT PRO-BNP; Complete Time: 14:23 07/21 10:47 Order name: PT-INR; Complete Time: 14:23 07/21 10:47 Order name: Troponin HS; Complete Time: 14:23 [facility] 07/21 10:47 Order name: Urinalysis w/ reflexes; Complete Time: 14:23 [facility] 07/21 10:47 Order name: Lipase; Complete Time: 14:23 [facility] 07/21 10:47 Order name: XRAY Chest (1 view); Complete Time: 14:23 [facility] 07/21 10:47 Order name: Cardiac monitoring; Complete Time: 13:09 07/21 10:47 Order name: EKG - Nurse/Tech; Complete Time: 11:23 07/21 10:47 Order name: IV Saline Lock; Complete Time: 11:23 [facility] 07/21 10:47 Order name: Labs collected and sent; Complete Time: 11: [facility] 07/21 10:47 Order name: O2 Per Protocol; Complete Time: 11:23 [facility] 07/21 10:47 Order name: O2 Sat Monitoring; Complete Time: 11:23 [facility] EC:31 Rate is 71 beats/min. Rhythm is regular. QRS [place] is Normal. OR interval is normal. QRS stephen interval is normal. QT interval is normal. No Q waves. T waves are Normal. T waves are Inverted. ST Segment is depressed in leads II, III, aVF, V3. Clinical impression: Abnormal EKG without significant change and No evidence of ischemia. Interpreted by me. Reviewed by me. Administered Medications: 13:04 Drug: NS 0.9% IV 500 ml IV at bolus once Route: IV; Rate: bolus; Site: right nj1 antecubital; 14:21 Follow up: Response: No adverse reaction; IV Status: Completed infusion; IV Intake: nj1 500ml 13:04 Drug: Aspirin PO Chewable Tablet 162 mg PO once Route: PO; nj1 14:21 Follow up: Response: No adverse reaction nj1 14:46 Not Given (Patient Refused): toprol xl25 mg PO once nj1 Disposition Summary: 07/22/23 14:39 Discharge Ordered Notes: Location: Home stephen Problem: new stephen Symptoms: have improved stephen Condition: Stable stephen Diagnosis - Gastro-esophageal reflux disease with esophagitis stephen - Palpitations stephen - Chest pain, unspecified stephen - Tobacco abuse counseling stephen - Tobacco use stephen Followup: stephen - With: Yolanda Lakhani - When: 2 - 3 days - Reason: Recheck today's complaints, Continuance of care, Re-evaluation by your physician Followup: stephen - With: Dion Araujo MD - When: 2 - 3 days - Reason: Recheck today's complaints, Continuance of care, Re-evaluation by your physician Discharge Instructions: - Discharge Summary Sheet stephen - Nonspecific Chest Pain, Adult stephen - Food Choices for Gastroesophageal Reflux Disease, Adult stephen - Gastroesophageal Reflux Disease, Adult stephen - Palpitations stephen - Steps to Quit Smoking stephen - Nonspecific Chest Pain, Adult, [id number] stephen - Gastroesophageal Reflux Disease, Adult, [id number]-Mqkw stephen - Steps to Quit Smoking, [id number] stephen - Aspirin and Your Heart stpehen - Palpitations, [id number]-[id number] stephen - Food Choices for Gastroesophageal Reflux Disease, Adult, Wurb-sf-Nydy [facility] Forms: - Medication Reconciliation Form [facility] - Thank You Letter [facility] - Antibiotic Education stephen - Prescription Opioid Use stephen - Patient Portal Instructions [facility] - Leadership Thank You Letter [facility] Prescriptions: - Protonix 40 mg Oral Tablet - take 1 tablet ORAL route once daily; 30 tablet; Refills: 0, Product Selection [facility] Permitted - Toprol XL 25 mg Oral Tablet - take 1 tablet ORAL route once daily; 20 tablet; Refills: 0, Product Selection stephen Permitted Signatures: Dispatcher [employer] EDMS Nigel Knight MD MD cha Lewis, Lynsay RN RN ll1 Briana Brown RN RN nj1 Corrections: (The following items were deleted from the chart) 10:43 10:43 PMHx: Hep C; ll1 ll1 10:47 10:47 Chest Single View+RAD.RAD.[email or web address] ordered. EDMS EDMS
[2023-07-22] MEDS ORDERED: METOPROLOL XL 25 MG TAB PO ONE (15:00)
[2023-07-22 15:48] VITALS: BP 130/80; TEMP 97.4; O2SAT 98
--- NOTE | 2023-07-23 13:40 | EKG ---
Test Date: 2023-07-22 Test Time: 11:11:32 [employer] Manager: THERESA MEASUREMENT RESULTS: Intervals: Rate: 71 WA: 134 QRSD: 76 QT: 386 QTc: 419 [place]: P: 69 WA: 134 QRS: 58 T: 11 INTERPRETIVE STATEMENTS: Normal sinus rhythm Nonspecific ST abnormality Abnormal ECG Compared to ECG 04/27/2023 13:58:54 ST (T wave) deviation now present Electronically Signed On 07-23-23 13:37:51 CDT by Dion Araujo
== END 2023-07-22 14:49 | disposition home or self-care (01) ==
LOC: ER 10:39
DX: K21.00 Gastro-esophageal reflux disease with esophagitis, without bleeding (principal); R00.2 Palpitations; Z72.0 Tobacco use; Z71.6 Tobacco abuse counseling; I10 Essential (primary) hypertension
CPT/HCPCS: 93005; 85025; 80048; 36415; 83735; 85610; 85379; 80076; 81003; 84484; 83690; 83880; 71045; 96360; 99285; J7040

== ENCOUNTER 2024-02-22 10:47 | Emergency (ER) | payer OTHER ==
--- NOTE | 2024-02-22 11:51 | RAD REPORT ---
EXAM: Chest Single View HISTORY: CHEST PAIN COMPARISON: 07/22/2023 FINDINGS: LUNGS/PLEURA: The lungs are clear. No pleural effusions or pneumothorax. No pulmonary edema. MEDIASTINUM: The mediastinal silhouette is within normal limits. CARDIAC: The cardiac silhouette is within normal limits. UPPER ABDOMEN: No significant abnormality. BONES: No acute fracture. LINES/TUBES/OTHER: N/A IMPRESSION: No evidence of acute cardiopulmonary disease.
[2024-02-22 13:05] LABS: Absolute Eosinophils 0.1 K/uL (0-0.5); Absolute Lymphocytes (CBC) 1.5 K/uL (0.7-4.9); Absolute Monocytes 0.6 K/uL (0.1-1.3); Absolute Neutrophil 7.3 K/uL (1.8-8.0); Basophils % 0.4 % (0-1.3); Eosinophils % 0.9 % (0-4.4); Hematocrit 43.7 % (36.0-45.0); Hemoglobin 14.1 g/dL (12.0-15.0); Lymphocytes % 15.6 % (15.3-44.8); MCH 30.4 pg (27.0-35.0); MCHC 32.3 g/dL (32.0-36.0); MPV 8.2 fL (7.6-11.3); Monocytes % 6.6 % (3.3-12.3); Neutrophils % 76.5 % (41.7-73.7); Platelets 274 thou/uL (152-406); RBC Red Blood Cell Count 4.65 M/uL (3.86-4.86); Red Cell Distribution Width 14.9 % (12.1-15.2)
[2024-02-22 13:19] LABS: Anion Gap 6.1 mEq/L (5.0-15.0); Magnesium 2.4 mg/dL (1.6-2.4); Potassium 4.1 mEq/L (3.5-5.1); Troponin High Sensitivity 3.6 pg/mL (<58.9)
--- NOTE | 2024-02-22 14:25 | EDPHYS ---
Physician Documentation [facility] Name: Fany Meza Age: 53 yrs Sex: Female : 1970 Arrival Date: 02/22/2024 Time: 10:47 Bed 17 Private MD: ED Physician Chris Grimes HPI: 02/21 11:46 This 53 yrs old Female presents to ER via Ambulatory with complaints of Shortness Of ms3 Breath. 11:46 53 year old female epigastric discomfort and shortness of breath for the past two to ms3 three days, particularly when lying down. The symptoms improve when lying on her side. The patient mentions a history of anxiety but notes that they have not experienced anxiety symptoms for years. However, the current breathing difficulty is causing anxiety. The patient denies nausea and vomiting but reports diarrhea and stomach issues, with an upcoming appointment with a well testing operator. There is no history of fever or chills.. 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 - Infectious Disease History:: Denies. - Social history:: Smoking status: Patient reports the use of cigarette tobacco products, smokes .25 packs per day. ROS: 11:46 Constitutional: Negative for fever, and chills. Cardiovascular: Negative for chest ms3 pain, and palpitations. 11:46 MS/Extremity: Negative for injury and deformity, Skin: Negative for injury, rash, and discoloration, 11:46 Respiratory: Positive for shortness of breath, 11:46 Abdomen/GI: Positive for abdominal pain, Exam: 11:46 Constitutional: This is a well developed, well nourished patient who is awake, alert, ms3 and in no acute distress. Neck: Trachea midline, no cervical lymphadenopathy. Supple, full range of motion without nuchal rigidity, or vertebral point tenderness. No Meningismus. Chest/axilla: Normal chest wall appearance and motion. Nontender with no deformity. Cardiovascular: Regular rate and rhythm with a normal S1 and S2. No gallops, murmurs, or rubs. Normal PMI, no JVD. No pulse deficits. Respiratory: Lungs have equal breath sounds bilaterally, clear to auscultation and percussion. No rales, rhonchi or wheezes noted. No increased work of breathing, no retractions or nasal flaring. Abdomen/GI: Soft, non-tender, with normal bowel sounds. No distension or tympany. No guarding or rebound. No evidence of tenderness throughout. Skin: Warm, dry with normal turgor. Normal color with no rashes, no lesions, and no evidence of cellulitis. 14:45 ECG was reviewed by the Attending Physician. ms3 Vital Signs: 10:59 BP 136 / 89; Pulse 69; Resp 18; Temp 98.1; Pulse Ox 100% ; Weight 73.48 kg; Height 5 ll1 ft. 4 in. ; Pain 3/10; 13:00 BP 117 / 72; Pulse 55; Resp 13; Pulse Ox 96% ; me1 14:00 BP 120 / 72; Pulse 57; Resp 20; Pulse Ox 99% ; me1 14:30 BP 112 / 70; Pulse 54; Resp 15; Temp 98.3; Pulse Ox 96% ; me1 10:59 Body Mass Index 27.81 (73.48 kg, 162.56 cm) ll1 10:59 Pain Scale: Adult ll1 MDM: 11:19 Medical Screening Exam initiated ms3 11:46 Differential diagnosis: CHF exacerbation, Myocardial Infarction pneumonia, Pulmonary ms3 Embolism. 14:45 Data reviewed: vital signs, nurses notes, lab test result(s), EKG, radiologic studies, ms3 and as a result, I will discharge patient. Independent interpretation of the following test(s) in the Emergency Department EKG: See my EKG interpretation above. Counseling: I had a detailed discussion with the patient and/or guardian regarding the historical points, exam findings, and any diagnostic results supporting the discharge/admit diagnosis, lab results, radiology results, the need for outpatient follow up, to return to the emergency department if symptoms worsen or persist or if there are any questions or concerns that arise at home. Special discussion: Based on the patient's history, exam, and Dx evaluation, there is no indication for emergent intervention or inpatient Tx. It is understood by the patient/guardian that if the Sx's persist or worsen they need to return immediately for re-evaluation. ED course: On reevaluation patient symptoms improved, patient is alert and oriented x 4, no apparent distress, nontoxic-appearing, speaking full sentences. Patient to follow-up with primary care physician in 2 to 3 days. Patient understands and agrees with plan. All questions were answered. Return precautions discussed include worsening symptoms, shortness of breath, chest pain, or any other concerns.. 02/21 11:11 Order name: Basic Metabolic Panel; Complete Time: 13:51 ms3 02/21 11:11 Order name: CBC with Diff; Complete Time: 13:51 ms3 02/21 11:11 Order name: Magnesium; Complete Time: 13:51 ms3 02/21 11:12 Order name: NT PRO-BNP; Complete Time: 13:51 ms3 02/21 11:12 Order name: Troponin HS; Complete Time: 13:51 ms3 02/21 11:12 Order name: D-Dimer; Complete Time: 13:51 ms3 02/21 11:12 Order name: XRAY Chest (1 view); Complete Time: 12:06 ms3 02/21 11:12 Order name: Cardiac monitoring; Complete Time: 13:01 ms3 02/21 11:12 Order name: EKG - Nurse/Tech; Complete Time: 13:01 ms3 02/21 11:12 Order name: IV Saline Lock; Complete Time: 12:49 ms3 02/21 11:12 Order name: Labs collected and sent; Complete Time: 12:49 ms3 02/21 11:12 Order name: O2 Per Protocol; Complete Time: 12:49 ms3 02/21 11:12 Order name: O2 Sat Monitoring; Complete Time: 12:49 ms3 EC:45 Rate is 55 beats/min. Rhythm is regular. QRS [place] is Normal. [place] interval is normal. QRS ms3 interval is normal. Clinical impression: Sinus bradycardia. Interpreted by me. Reviewed by me. Administered Medications: No medications were administered Disposition Summary: 02/22/24 14:25 Discharge Ordered Notes: Location: Home ms3 Condition: Stable ms3 Diagnosis - Shortness of breath ms3 - Chest pain on breathing ms3 Followup: ms3 - With: Indra Banegas, - When: 2 - 3 days - Reason: Recheck today's complaints Discharge Instructions: - Discharge Summary Sheet ms3 - Nonspecific Chest Pain, Adult ms3 - Shortness of Breath, Adult ms3 Forms: - Medication Reconciliation Form ms3 - Antibiotic Education ms3 - Prescription Opioid Use ms3 - Patient Portal Instructions ms3 - Leadership Thank You Letter ms3 Signatures: Dispatcher [employer] Jef Bella RN RN ll1 Chris Grimes DO DO ms3 Jaz Ballard RN RN me1
--- NOTE | 2024-02-22 14:25 | ER ---
Nurse's Notes [facility] Name: Fany Meza Age: 53 yrs Sex: Female : 1970 Arrival Date: 02/22/2024 Time: 10:47 Bed 17 Private MD: Diagnosis: Shortness of breath;Chest pain on breathing Presentation: 02/21 10:59 Chief complaint: Patient states: SOB for 3 days, worse with laying flat. Coronavirus ll1 screen: Client denies travel out of the [place] in the last 14 days. difficulty breathing, shortness of breath. Ebola Screen: Patient denies travel to an Ebola-affected area in the 21 days before illness onset. Initial Sepsis Screen: Does the patient meet any 2 criteria? No. Patient's initial sepsis screen is negative. Does the patient have a suspected source of infection? No. Patient's initial sepsis screen is negative. Risk Assessment: Do you want to hurt yourself or someone else? Patient reports no desire to harm self or others. Onset of symptoms was February 20, 2024. 10:59 Method Of Arrival: Ambulatory 1 10:59 Acuity: SHARAN 3 ll1 Triage Assessment: 10:59 General: Appears distressed, uncomfortable, Behavior is cooperative, appropriate for ll1 age, anxious. Pain: Complains of pain in abdomen Quality of pain is described as aching. Respiratory: Reports shortness of breath labored breathing Onset: The symptoms/episode began/occurred 3 days, the patient has mild shortness of breath. GI: Reports nausea. 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 - Infectious Disease History:: Denies. - Social history:: Smoking status: Patient reports the use of cigarette tobacco products, smokes .25 packs per day. Screenin:35 [facility] ED Fall Risk Assessment (Adult) History of falling in the last 3 months, me1 including since admission No falls in past 3 months (0 pts) Confusion or Disorientation No (0 pts) Intoxicated or Sedated No (0 pts) Impaired Gait No (0 pts) Mobility Assist Device Used No (0 pt) Altered Elimination No (0 pt) Score/Fall Risk Level 0 - 2 = Low Risk Maintained a safe environment, Provided non-skid footwear, Hourly rounding (assess needs \T\ fall precautionary measures) done. Abuse screen: Denies threats or abuse. Nutritional screening: No deficits noted. Tuberculosis screening: No symptoms or risk factors identified. Assessment: 12:35 General: Appears comfortable, well groomed, well developed, well nourished, Behavior is me1 calm, cooperative, appropriate for age, Reports SOB for 3 days, worse with laying flat. Pain: Denies pain. Neuro: Level of Consciousness is awake, alert, obeys commands, Oriented to person, place, time, situation, Appropriate for age. Cardiovascular: Patient's skin is warm and dry. Rhythm is sinus rhythm. Respiratory: Airway is patent Respiratory effort is even, unlabored, Respiratory pattern is regular, symmetrical. Respiratory: Breath sounds are clear bilaterally. GI: No signs and/or symptoms were reported involving the gastrointestinal system. : No signs and/or symptoms were reported regarding the genitourinary system. EENT: No signs and/or symptoms were reported regarding the EENT system. Derm: Skin is intact, is healthy with good turgor, Skin is pink, warm \T\ dry. Musculoskeletal: Range of motion: intact in all extremities. Vital Signs: 10:59 BP 136 / 89; Pulse 69; Resp 18; Temp 98.1; Pulse Ox 100% ; Weight 73.48 kg; Height 5 ll1 ft. 4 in. ; Pain 3/10; 13:00 BP 117 / 72; Pulse 55; Resp 13; Pulse Ox 96% ; me1 14:00 BP 120 / 72; Pulse 57; Resp 20; Pulse Ox 99% ; me1 14:30 BP 112 / 70; Pulse 54; Resp 15; Temp 98.3; Pulse Ox 96% ; me1 10:59 Body Mass Index 27.81 (73.48 kg, 162.56 cm) ll1 10:59 Pain Scale: Adult ll1 ED Course: 10:49 Patient arrived in ED. im 10:56 Chris Grimes DO is Attending Physician. ms3 10:58 Arm band placed on. ll1 11:00 Triage completed. ll1 11:39 XRAY Chest (1 view) In Process Unspecified. EDMS 12:35 Patient has correct armband on for positive identification. Bed in low position. Call me1 light in reach. Side rails up X2. Provided Education on: POC. Verbalized understanding.. Client placed on continuous cardiac and pulse oximetry monitoring. NIBP monitoring applied. monitor technician on. Pulse ox on. NIBP on. 12:35 No provider procedures requiring assistance completed. me1 12:39 Jaz Ballard, RN is Primary Nurse. me1 12:49 Basic Metabolic Panel Sent. me1 12:49 CBC with Diff Sent. me1 12:49 Magnesium Sent. me1 12:49 NT PRO-BNP Sent. me1 12:49 Troponin HS Sent. me1 12:49 D-Dimer Sent. me1 12:49 Initial lab(s) drawn, by me, sent to lab. Inserted saline lock: 22 gauge in right me1 antecubital area, using aseptic technique. 13:01 EKG done, by ED staff, reviewed by Chris Grimes DO. me1 14:23 Indra Banegas DO is Referral Physician. ms3 14:36 IV discontinued, intact, bleeding controlled, No redness/swelling at site. Pressure me1 dressing applied. Administered Medications: No medications were administered Medication: 12:35 VIS not applicable for this client. me1 Outcome: 14:25 Discharge ordered by MD. ms3 14:36 Discharged to home ambulatory, me1 14:36 Condition: stable 14:36 Discharge instructions given to patient, Instructed on discharge instructions, follow up and referral plans. Demonstrated understanding of instructions, follow-up care, 14:37 Patient left the ED. me1 Signatures: Dispatcher [employer] EDMS Jef Glover RN RN 1 Chris Grimes DO DO ms3 Jaelyn Lemus Jaz Ballard, RN RN me1 Corrections: (The following items were deleted from the chart) 11:03 10:59 Resp 18bpm; ll1 ll1 12:39 10:59 Chief complaint: Patient states: SOB for 3 days, worse with laying flat. ll1 me1
[2024-02-22 15:09] VITALS: BP 112/70; TEMP 98.3; O2SAT 96
== END 2024-02-22 14:37 | disposition home or self-care (01) ==
LOC: ER 10:47
DX: R06.02 Shortness of breath (principal); R07.1 Chest pain on breathing; R10.9 Unspecified abdominal pain; I10 Essential (primary) hypertension; F17.210 Nicotine dependence, cigarettes, uncomplicated
CPT/HCPCS: 36415; 71045; 80048; 83735; 83880; 84484; 85025; 85379; 93005; 99284

== ENCOUNTER 2024-02-29 20:51 | Emergency (ER) | payer OTHER ==
[2024-02-29 21:32] LABS: Specific Gravity 1.007 (1.005-1.030); Urine Bilirubin NEGATIVE (Negative); Urine Blood Negative (Negative); Urine Clarity Clear (Clear); Urine Color Colorless (Yellow); Urine Glucose NEGATIVE (Negative); Urine Ketones NEGATIVE (Negative); Urine Microscopic Reflex YN NO UMIC; Urine Nitrite NEGATIVE (Negative); Urine Protein NEGATIVE (Negative); Urine Urobilinogen Normal (Normal)
[2024-02-29] MEDS ORDERED: FAMOTIDINE 20 MG TAB ONE (22:06)
[2024-02-29] MEDS ORDERED: ONDANSETRON 4 MG/2 ML VIAL ONE (22:06)
[2024-02-29] MEDS ORDERED: MORPHINE 4 MG/ML SYR ONE (22:08)
[2024-02-29] MEDS ORDERED: NA CHLORIDE 0.9% 1,000 ML ONE (22:08)
[2024-02-29] MEDS ORDERED: FAMOTIDINE 20 MG/2 ML VIAL IV ONE (22:13)
[2024-02-29 22:18] LABS: Albumin 3.7 g/dL (3.4-5.0); Albumin/Globulin Ratio 1.2 (1.1-1.8); Anion Gap 10.8 mEq/L (5.0-15.0); Bilirubin Total 0.3 mg/dL (0.2-1.0); Globulin 3.1 g/dL (2.3-3.5); Potassium 3.8 mEq/L (3.5-5.1); Protein, Total 6.8 g/dL (6.4-8.2)
[2024-02-29 22:36] LABS: Hemoglobin 13.6 g/dL (12.0-15.0)
[2024-02-29 22:51] LABS: Absolute Eosinophils 0.2 K/uL (0-0.5); Absolute Lymphocytes (CBC) 2.5 K/uL (0.7-4.9); Absolute Monocytes 0.9 K/uL (0.1-1.3); Absolute Neutrophil 4.5 K/uL (1.8-8.0); Basophils % 0.6 % (0-1.3); Eosinophils % 2.1 % (0-4.4); Hematocrit 40.2 % (36.0-45.0); MCH 31.2 pg (27.0-35.0); MCHC 33.8 g/dL (32.0-36.0); MCV 92.1 fL (80-100); Monocytes % 10.9 % (3.3-12.3); Neutrophils % 55.4 % (41.7-73.7); Nucleated Red Blood Cells % 0.1 % (0-0); Platelets 256 thou/uL (152-406); RBC Red Blood Cell Count 4.36 M/uL (3.86-4.86); Red Cell Distribution Width 14.9 % (12.1-15.2)
[2024-02-29] MEDS ORDERED: SUCRALFATE 1GM/10ML UCUP ONE (23:17)
[2024-02-29] MEDS ORDERED: MAGNES/ALUMIN/SIMET 30ML UCUP ONE (23:22)
--- NOTE | 2024-02-29 23:47 | RAD REPORT ---
EXAM DESCRIPTION: CT CHEST ABDOMEN PELVIS WITH IV CONTRAST CLINICAL HISTORY: Chest and abdominal pain. COMPARISON: CT Chest abdomen pelvis angiography with IV contrast 04/24/2022. TECHNIQUE: Contiguous axial images of the chest, abdomen and pelvis were obtained followed by reconstruction jesús ges. This exam was performed according to our departmental dose-optimization program, which includes automated exposure control, adjustment of the mA and/or kV according to patient size and/or use of iterative reconstruction technique. FINDINGS: Linear opacities within the dependent portion of the lungs may represent dependent atelectasis. The aorta is of normal contour and tapering. There is no pericardial or pleural fluid collection. The re is no parenchymal consolidation or pneumothorax. The liver, spleen, pancreas and kidneys are within normal limits. There is no hydronephrosis or renal stones. The gallbladder is unremarkable by CT criteria. Adrenal glands are within normal limits. Aorta is of normal caliber and tapering. There is no free fluid in the abdomen or pelvis. There is no bowel obstruction. There is no stranding of the mesenteric fat to suggest an inflammatory response. The appendix is within normal limits. There is no pericecal inflammation. IMPRESSION: Linear opacities within the dependent portion of the lungs may represent dependent atelectasis. No acute intra-abdominal abnormality. Electronically signed by: Charanjit Patel MD 02/29/2024 11:44 PM [facility] Due to temporary technical issues with the PACS/[employer] reporting system, reports are being josé miguel d by the in-house radiologist without review as a courtesy to ensure prompt reporting the interpreting radiologist is fully responsible for the content of the report. Transcribed Date/Time: 02/29/2024 11:47 PM
--- NOTE | 2024-03-01 00:27 | EDPHYS ---
Physician Documentation [facility] Name: Fany Meza Age: 53 yrs Sex: Female : 1970 Arrival Date: 02/29/2024 Time: 20:51 Bed 8 Private MD: Clifford Ko ED Physician Derick Miguel HPI: 02/28 20:55 This 53 yrs old Female presents to ER via Unassigned with complaints of sp4 Nausea, Upper abd pain. 03/01 22:46 1 patient presents with acute onset of upper abdominal pain and nausea.. 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 - Infectious Disease History:: Denies. - Social history:: Smoking status: Patient reports the use of cigarette tobacco products, smokes one-half pack cigarettes per day, Patient uses alcohol, occasionally. Patient/guardian denies using. - Family history:: not pertinent. ROS: 03/01 22:46 Constitutional: Negative for fever, chills, and weight loss, positive upper abdominal sp4 pain positive nausea. All other systems are negative, Exam: 22:46 Constitutional: This is a well developed, well nourished patient who is awake, alert, sp4 and in no acute distress. Head/Face: Normocephalic, atraumatic. Eyes: Pupils equal round and reactive to light, extra-ocular motions intact. Lids and lashes normal. Conjunctiva and sclera are not injected. Cornea within normal limits. Periorbital areas with no swelling, redness, or edema. ENT: Nares patent. No nasal discharge, no septal abnormalities noted. Tympanic membranes are normal and external auditory canals are clear. Oropharynx with no redness, swelling, or masses, exudates, or evidence of obstruction, uvula midline. Mucous membranes moist. Neck: Trachea midline, no thyromegaly or masses palpated, and no cervical lymphadenopathy. Supple, full range of motion without nuchal rigidity, or vertebral point tenderness. Chest/axilla: Normal chest wall appearance and motion. Nontender with no deformity. No lesions are appreciated. Cardiovascular: Regular rate and rhythm with a normal S1 and S2. No gallops, murmurs, or rubs. Normal PMI, no JVD. No pulse deficits. Respiratory: Lungs have equal breath sounds bilaterally, clear to auscultation and percussion. No rales, rhonchi or wheezes noted. No increased work of breathing, no retractions or nasal flaring. Abdomen/GI: Soft, with normal bowel sounds. No distension or tympany. No guarding or rebound. Positive for upper abdominal tenderness Back: No spinal tenderness. No costovertebral tenderness. Skin: Warm, dry with normal turgor. Normal color with no rashes, no lesions, and no evidence of cellulitis. MS/ Extremity: Pulses equal, no cyanosis. Neurovascular intact. Full, normal range of motion. Neuro: Awake and alert, GCS 15, oriented to person, place, time, and situation. Cranial nerves II-XII grossly intact. Motor strength 5/5 in all extremities. Sensory grossly intact. Psych: Awake, alert, with orientation to person, place and time. Behavior, mood, and affect are within normal limits Vital Signs: 02/28 20:57 Resp 22; Temp 98.5(O); Weight 74.39 kg; Height 5 ft. 4 in. ; Pain 10/10; tm6 20:58 BP 162 / 92; Pulse 79; Pulse Ox 100% on R/A; MAP 111 mmHg; tm6 23:34 BP 127 / 81; Pulse 51; Resp 18; Pulse Ox 99% on R/A; ay 03/01 00:27 BP 130 / 85; Pulse 53; Resp 18; Pulse Ox 99% on R/A; ay 02/28 20:57 Body Mass Index 28.15 (74.39 kg, 162.56 cm) tm6 02/28 20:57 Pain Scale: Adult tm6 [place] Coma Score: 02/28 22:40 Eye Response: spontaneous(4). Motor Response: obeys commands(6). Verbal Response: ay oriented(5). Total: 15. 03/01 22:46 Eye Response: spontaneous(4). Motor Response: obeys commands(6). Verbal Response: sp4 oriented(5). Total: 15. MDM: 02/28 20:56 ED course: EXAMINATION: ONE VIEW CHEST XR CLINICAL INDICATION: Female, 27 years sp4 old.,COUGH TECHNIQUE: Frontal chest projection is submitted. Examination is limited by patient positioning and technique. COMPARISON: No prior exam. FINDINGS: The lungs are well inflated and clear. No pneumothorax or sizable effusion. The heart is normal in size. Mediastinal contours are unremarkable. IMPRESSION: No acute intrathoracic abnormalities. . 21:00 Medical Screening Exam initiated sp4 03/01 00:25 ED course: EXAM DESCRIPTION: CT CHESTABDOMEN PELVIS WITH IV CONTRAST CLINICAL HISTORY: sp4 Chest and abdominal pain. COMPARISON: CT Chest abdomen pelvis angiography with IV contrast 04/24/2022. TECHNIQUE: Contiguous axial images of the chest, abdomen and pelvis were obtained followed by reconstruction images. This exam was performed according to our departmental dose-optimization program, which includes automated exposure control, adjustment of the mA and/or kV according to patient size and/or use of iterative reconstruction technique. FINDINGS: Linear opacities within the dependent portion of the lungs may represent dependent atelectasis. The aorta is of normal contour and tapering. There is no pericardial or pleural fluid collection. There is no parenchymal consolidation or pneumothorax. The liver, spleen, pancreas and kidneys are within normal limits. There is no hydronephrosis or renal stones. The gallbladder is unremarkable by CT criteria. Adrenal glands are within normal limits. Aorta is of normal caliber and tapering. There is no free fluid in the abdomen or pelvis. There is no bowel obstruction. There is no stranding of the mesenteric fat to suggest an inflammatory response. The appendix is within normal limits. There is no pericecal inflammation. IMPRESSION: Linear opacities within the dependent portion of the lungs may represent dependent atelectasis. No acute intra-abdominal abnormality. Electronically signed by: Charanjit Patel . 22:46 Differential diagnosis: Nonspecific abd pain, gastritis, pancreatitis, viral sp4 gastroenteritis, gastroenteritis. Data reviewed: vital signs, nurses notes, lab test result(s), radiologic studies, CT scan. Consideration of Admission/Observation Escalation of care including admission/observation considered. 02/28 20:55 Order name: CBC with Diff; Complete Time: 23:29 sp4 02/28 20:55 Order name: CMP; Complete Time: 22:47 sp4 02/28 20:55 Order name: Lipase; Complete Time: 22:47 sp4 02/28 20:55 Order name: Urinalysis w/ reflexes; Complete Time: 22:47 sp4 02/28 21:23 Order name: CT Chest, Abdomen, Pelvis - W/Contrast 4 02/28 20:55 Order name: IV Saline Lock; Complete Time: 22:39 sp4 02/28 20:55 Order name: Labs collected and sent; Complete Time: 22:39 sp4 Administered Medications: 02/28 22:36 Drug: morphine IVP or IV 6 mg IVP once over 4 mins Route: IVP; Infused Over: 4 mins; ay Site: right antecubital; 23:29 Follow up: Response: No adverse reaction; Pain is decreased ay 22:37 Drug: Famotidine IVP 20 mg IVP once; dilute with 10 mL 0.9% NaCl; give over 2 minutes ay Route: IVP; Site: right antecubital; 23:30 Follow up: Response: No adverse reaction ay 22:38 Drug: Ondansetron IVP 4 mg IVP once; over 2 minutes Route: IVP; Site: right antecubital;ay 23:31 Follow up: Response: No adverse reaction ay 22:38 Drug: NS 0.9% IV 1000 ml IV at 1 bolus Per protocol; to be given as a bolus over 60 ay minutes Route: IV; Rate: 1 bolus; Site: right antecubital; 23:31 Follow up: Response: No adverse reaction ay 03/01 00:48 Follow up: Response: No adverse reaction; IV Status: Completed infusion; IV Intake: ay 1000ml 02/28 23:29 Drug: Sucralfate PO 1 grams PO once Route: PO; ay 03/01 00:29 Follow up: Response: No adverse reaction ay 02/28 23:29 Drug: Alum-Mag Hydroxide-Simeth PO Suspension (200 mg-200 mg-20 mg/5 mL) 30 ml PO once ay Route: PO; 03/01 00:29 Follow up: Response: No adverse reaction ay Disposition Summary: 03/01/24 00:27 Discharge Ordered Notes: Continue all home medications including Protonix and Pepcid Location: Home sp4 Problem: new sp4 Symptoms: have improved sp4 Condition: Stable sp4 Diagnosis - Acute gastritis sp4 Followup: sp4 - With: Clifford Ko DO - When: 7 - 10 days - Reason: Recheck today's complaints Discharge Instructions: - Discharge Summary Sheet sp4 - Gastritis, Adult, [id number] sp4 Prescriptions: - acetaminophen-codeine 300-30 mg Oral tablet - take 1 tablet ORAL route 4 times per day PRN pain; 12 tablet; Refills: 0, sp4 Product Selection Permitted - Carafate 1 gram Oral Tablet - take 2 tablets ORAL route every 12 hours take on an empty stomach, beginning on sp4 waking and last dose at bedtime; 100 tablet; Refills: 0, Product Selection Permitted - ondansetron 8 mg Oral Tablet,disintegrating - take 1 tablet ORAL route every 8 hours PRN nausea; 30 tablet; Refills: 0, sp4 Product Selection Permitted Signatures: Dispatcher [employer] Derick Hart MD MD sp4 Ari Soto RN RN tm6 Arcelia Bhat RN RN ay
--- NOTE | 2024-03-01 00:27 | ER ---
Nurse's Notes [facility] Name: Fany Meza Age: 53 yrs Sex: Female : 1970 Arrival Date: 02/29/2024 Time: 20:51 Bed 8 Private MD: Clifford Ko Diagnosis: Acute gastritis Presentation: 02/28 20:58 Chief complaint: Patient states: earlier today started with epigastric pain and under tm6 left chest. My GI doc scheduled a CT for me, but it is not until the end of March. My pain has never hurt this much. Also has nausea. Coronavirus screen: Client denies travel out of the [place] in the last 14 days. Ebola Screen: Patient negative for fever greater than or equal to 101.5 degrees Fahrenheit, and additional compatible Ebola Virus Disease symptoms Patient denies exposure to infectious person. Patient denies travel to an Ebola-affected area in the 21 days before illness onset. No symptoms or risks identified at this time. Initial Sepsis Screen: Does the patient meet any 2 criteria? No. Patient's initial sepsis screen is negative. Does the patient have a suspected source of infection? No. Patient's initial sepsis screen is negative. Risk Assessment: Do you want to hurt yourself or someone else? Patient reports no desire to harm self or others. Onset of symptoms was February 29, 2024. 20:58 Method Of Arrival: Ambulatory tm6 20:58 Acuity: SHARAN 3 tm6 Triage Assessment: 20:58 General: Appears distressed, Behavior is cooperative. Pain: Complains of pain in tm6 epigastric area and left upper quadrant Pain currently is 10 out of 10 on a pain scale. Pain began earlier today. EENT: No signs and/or symptoms were reported regarding the EENT system. Neuro: Level of Consciousness is awake, alert, obeys commands, Oriented to person, place, time, situation. Cardiovascular: Patient's skin is warm and dry. Respiratory: Airway is patent Respiratory effort is even, unlabored, Respiratory pattern is regular, symmetrical. GI: Abdomen is flat, non-distended, Reports upper abdominal pain, nausea. : No signs and/or symptoms were reported regarding the genitourinary system. Derm: No signs and/or symptoms reported regarding the dermatologic system. Musculoskeletal: No signs and/or symptoms reported regarding the musculoskeletal system. 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 - Infectious Disease History:: Denies. - Social history:: Smoking status: Patient reports the use of cigarette tobacco products, smokes one-half pack cigarettes per day, Patient uses alcohol, occasionally. Patient/guardian denies using. - Family history:: not pertinent. Screenin:[facility] ED Fall Risk Assessment (Adult) History of falling in the last 3 months, ay including since admission No falls in past 3 months (0 pts) Confusion or Disorientation No (0 pts) Intoxicated or Sedated No (0 pts) Impaired Gait No (0 pts) Mobility Assist Device Used No (0 pt) Altered Elimination No (0 pt) Score/Fall Risk Level 0 - 2 = Low Risk Oriented to surroundings, Maintained a safe environment, Educated pt \T\ family on fall prevention, incl call for assistance when getting out of bed. Abuse screen: Denies threats or abuse. Nutritional screening: No deficits noted. Tuberculosis screening: No symptoms or risk factors identified. Exposure risk/Travel Screening:. Assessment: 22:40 General: Appears uncomfortable. Pain: Complains of pain in xiphoid area and epigastric ay area Pain radiates to left upper quadrant Pain Quality of pain is described as sharp, Pain began 4 hours ago. Neuro: Level of Consciousness is awake, alert, obeys commands, Oriented to person, place, time, situation, Appropriate for age Gait is steady, Speech is normal, Facial symmetry appears normal, Cardiovascular: Reports Denies chest pain, Heart tones S1 S2 Rhythm is. Respiratory: Reports shortness of breath with pain Airway is patent. GI: Abdomen is round Bowel sounds present X 4 quads. Abd is soft and non tender X 4 quads. : No deficits noted. Reports. Musculoskeletal: No deficits noted. No signs and/or symptoms reported regarding the musculoskeletal system. Denies. Vital Signs: 20:57 Resp 22; Temp 98.5(O); Weight 74.39 kg; Height 5 ft. 4 in. ; Pain 10/10; tm6 20:58 BP 162 / 92; Pulse 79; Pulse Ox 100% on R/A; MAP 111 mmHg; tm6 23:34 BP 127 / 81; Pulse 51; Resp 18; Pulse Ox 99% on R/A; ay 03/01 00:27 BP 130 / 85; Pulse 53; Resp 18; Pulse Ox 99% on R/A; ay 02/28 20:57 Body Mass Index 28.15 (74.39 kg, 162.56 cm) tm6 02/28 20:57 Pain Scale: Adult tm6 [place] Coma Score: 02/28 22:40 Eye Response: spontaneous(4). Motor Response: obeys commands(6). Verbal Response: ay oriented(5). Total: 15. 03/01 22:46 Eye Response: spontaneous(4). Motor Response: obeys commands(6). Verbal Response: sp4 oriented(5). Total: 15. ED Course: 02/28 20:54 Patient arrived in ED. gm2 20:54 Clifford Ko DO is Private Physician. gm2 20:55 Derick Miguel MD is Attending Physician. sp4 20:58 Arm band placed on right wrist. tm6 20:59 Triage completed. tm6 21:10 Urinalysis w/ reflexes Sent. tm6 21:30 Arcelia Bhat, RN is Primary Nurse. ay 22:40 Patient has correct armband on for positive identification. Bed in low position. Call ay light in reach. Side rails up X2. 22:40 Inserted saline lock: 20 gauge. ay 23:03 CT Chest, Abdomen, Pelvis - W/Contrast In Process Unspecified. EDMS 03/01 00:25 Clifford Ko DO is Referral Physician. sp4 00:35 No provider procedures requiring assistance completed. IV discontinued. ay 00:36 Provided Education on: Procedure Consent. ay 00:47 IV discontinued, intact, bleeding controlled, No redness/swelling at site. Pressure ay dressing applied. Administered Medications: 02/28 22:36 Drug: morphine IVP or IV 6 mg IVP once over 4 mins Route: IVP; Infused Over: 4 mins; ay Site: right antecubital; 23:29 Follow up: Response: No adverse reaction; Pain is decreased ay 22:37 Drug: Famotidine IVP 20 mg IVP once; dilute with 10 mL 0.9% NaCl; give over 2 minutes ay Route: IVP; Site: right antecubital; 23:30 Follow up: Response: No adverse reaction ay 22:38 Drug: Ondansetron IVP 4 mg IVP once; over 2 minutes Route: IVP; Site: right antecubital;ay 23:31 Follow up: Response: No adverse reaction ay 22:38 Drug: NS 0.9% IV 1000 ml IV at 1 bolus Per protocol; to be given as a bolus over 60 ay minutes Route: IV; Rate: 1 bolus; Site: right antecubital; 23:31 Follow up: Response: No adverse reaction ay 03/01 00:48 Follow up: Response: No adverse reaction; IV Status: Completed infusion; IV Intake: ay 1000ml 02/28 23:29 Drug: Sucralfate PO 1 grams PO once Route: PO; ay 03/01 00:29 Follow up: Response: No adverse reaction ay 02/28 23:29 Drug: Alum-Mag Hydroxide-Simeth PO Suspension (200 mg-200 mg-20 mg/5 mL) 30 ml PO once ay Route: PO; 03/01 00:29 Follow up: Response: No adverse reaction ay Medication: 02/28 22:40 VIS not applicable for this client. ay Intake: 03/01 00:48 IV: 1000ml; Total: 1000ml. ay Outcome: 00:27 Discharge ordered by . spCaleb 00:31 Discharged to home ambulatory, ay 00:31 Condition: stable 00:31 Discharge instructions given to patient, 00:45 Patient left the ED. ay Signatures: Dispatcher [employer] Derick Hart MD MD sp4 Meera Chatman 2 Ari Soto RN RN tm6 Arcelia Bhat RN RN ay Corrections: (The following items were deleted from the chart) 02/28 22:52 22:36 Arcelia Bhat, RN is Primary Nurse. ay ay 03/01 00:48 02/28 23:31 Response: No adverse reaction ay ay
[2024-03-01 00:54] VITALS: TEMP 98.5
[2024-03-01 00:59] VITALS: O2SAT 99
[2024-03-01 01:00] VITALS: BP 130/85
== END 2024-03-01 00:45 | disposition home or self-care (01) ==
LOC: ER 20:51
DX: K29.00 Acute gastritis without bleeding (principal); I10 Essential (primary) hypertension; F17.210 Nicotine dependence, cigarettes, uncomplicated
CPT/HCPCS: 85025; 36415; 81003; 83690; 80053; 71260; 74177; Q9967; J2405; J7030

== ENCOUNTER 2024-03-12 13:45 | Emergency (ER) | payer OTHER ==
[2024-03-12 14:20] LABS: Absolute Basophils 0.1 K/uL (0-0.5); Absolute Eosinophils 0.1 K/uL (0-0.5); Absolute Lymphocytes (CBC) 2.1 K/uL (0.7-4.9); Basophils % 0.6 % (0-1.3); Eosinophils % 1.5 % (0-4.4); Hematocrit 42.3 % (36.0-45.0); Hemoglobin 13.7 g/dL (12.0-15.0); Lymphocytes % 25.5 % (15.3-44.8); MCH 30.5 pg (27.0-35.0); MCHC 32.4 g/dL (32.0-36.0); MCV 94.1 fL (80-100); MPV 7.9 fL (7.6-11.3); Monocytes % 12.1 % (3.3-12.3); Neutrophils % 60.3 % (41.7-73.7); Platelets 278 thou/uL (152-406); RBC Red Blood Cell Count 4.49 M/uL (3.86-4.86)
[2024-03-12] MEDS ORDERED: ASPIRIN 81 MG CHEWABLE TABLET ONE (14:20)
[2024-03-12] MEDS ORDERED: FAMOTIDINE 20 MG/2 ML VIAL IV ONE (14:20)
[2024-03-12] MEDS ORDERED: NA CHLORIDE 0.9% 1,000 ML ONE (14:20)
[2024-03-12 14:25] LABS: PT Prothrombin Time 11.5 SECONDS (9.4-12.5); Protime INR 1.03
[2024-03-12 14:26] LABS: Sqamous Epithelial <5 /HPF (None Seen); Urine Bacteria <20 /HPF (<20); Urine Bilirubin NEGATIVE (Negative); Urine Blood Negative (Negative); Urine Clarity Clear (Clear); Urine Color Light-Yellow (Yellow); Urine Culture Reflex Order NOT NEEDED; Urine Glucose NEGATIVE (Negative); Urine Ketones NEGATIVE (Negative); Urine Microscopic Reflex YN ORDER UMIC; Urine Nitrite NEGATIVE (Negative); Urine Protein NEGATIVE (Negative); Urine RBC <5 /HPF (None Seen); Urine Urobilinogen Normal (Normal); Urine WBC <5 /HPF (<5)
[2024-03-12 14:40] LABS: ALT/SGPT 24 U/L (13-56); AST/SGOT 20 U/L (15-37); Albumin 3.7 g/dL (3.4-5.0); Albumin/Globulin Ratio 1.1 (1.1-1.8); Alkaline Phosphatase 49 U/L (45-117); Anion Gap 8.8 mEq/L (5.0-15.0); BUN Blood Urea Nitrogen 16 mg/dL (7-18); Bicarbonate 24 mEq/L (21-32); Bilirubin Total 0.3 mg/dL (0.2-1.0); Globulin 3.3 g/dL (2.3-3.5); Glomerular Filtration Rate 107 ml/min (=/>90); Glucose Level 91 mg/dL (74-106); Lipase 45 U/L (13-75); NT PRO-BNP 83 pg/mL (<125); Potassium 3.8 mEq/L (3.5-5.1); Sodium Level 140 mEq/L (136-145); Troponin High Sensitivity 4.1 pg/mL (<58.9)
[2024-03-12] MEDS ORDERED: MAGNES/ALUMIN/SIMET 30ML UCUP ONE (14:41)
[2024-03-12] MEDS ORDERED: LIDOCAINE VISCOUS 2% 10ML ORAL SOLN ONE (14:42)
[2024-03-12 14:45] LABS: Bilirubin Direct < 0.2 mg/dL (0-0.2); Bilirubin Indirect, Calculated 0.1 mg/dL (0.2-0.8)
--- NOTE | 2024-03-12 15:08 | RAD REPORT ---
EXAM: CTA of the chest, abdomen and pelvis HISTORY: Chest pain and back pain PAIN COMPARISON: 04/23/2022 TECHNIQUE: Multiple contiguous axial images were obtained a CTA of the chest and abdomen with contras t per aortic dissection protocol. This involves 3D reconstructions, MIPs, volume rendered images and/or shaded surface rendering. One or more of the following dose reduction techniques were used: Au tomated exposure control, adjustment of the mA and/or kV according to patient size, and/or iterative reconstruction. Unless otherwise specified, incidental findings do not require dedicated im aging follow-up. Sagittal and coronal 3-D MIP reformats were performed. FINDINGS: PULMONARY ARTERIES: Normal in caliber without filling defects to suggest pulmonary emboli. ASCENDING THORACIC AORTA: Normal caliber without evidence of dissection or aneurysmal dilatation. DESCENDING THORACIC AORTA: Normal caliber without evidence of dissection or aneurysmal dilatation. ABDOMINAL AORTA: Normal caliber without evidence of dissection or aneurysmal dilatation. CELIAC TRUNK: Patent. SMA: Patent SAUL: Patent RENAL ARTERIES: Bilateral single renal arteries without significant atherosclerotic disease. MEDIASTINUM: No hilar or mediastinal lymphadenopathy. LUNGS: No focal infiltrates or masses. PLEURAL SPACE: No pleural effusion or pneumothorax. LIVER: Unremarkable. SPLEEN: Unremarkable. PANCREAS: Unremarkable. KIDNEYS: Unremarkable. ADRENALS: Unremarkable. BOWEL: Unremarkable. RETROPERITONEUM: No lymphadenopathy. BONES: Unremarkable ADDITIONAL FINDINGS: IMPRESSION: No evidence of thoracic or abdominal aortic aneurysm or dissection.
--- NOTE | 2024-03-12 15:29 | RAD REPORT ---
EXAMINATION: ONE VIEW CHEST XR CLINICAL INDICATION: CHEST PAIN TECHNIQUE: Frontal chest projection is submitted. Examination is limited by patient positioning and t echnique. COMPARISON: No prior exam. FINDINGS: The lungs are well inflated and clear. The heart is upper limit of normal in size. No displaced fract ures identified. Postsurgical changes cervical spine. IMPRESSION: No acute intrathoracic abnormalities.
--- NOTE | 2024-03-12 15:32 | EDPHYS ---
Physician Documentation [facility] Name: Fany Meza Age: 53 yrs Sex: Female : 1970 Arrival Date: 03/12/2024 Time: 13:45 Bed 2 Private MD: ED Physician Nigel Knight HPI: 03/12 14:28 This 53 yrs old Female presents to ER via Ambulatory with complaints of Chest stephen Pain, Back Pain. 14:28 The patient or guardian reports chest pain that is located primarily in the substernal stephen area, anterior chest wall, left. Onset: just prior to arrival, this morning. The pain radiates to Associated signs and symptoms: Pertinent positives:. The chest pain is described as sharp. Duration: The patient or guardian reports multiple episodes, with no pattern. Modifying factors: The symptoms are alleviated by nothing. the symptoms are aggravated by nothing. Severity of pain: At its worst the pain was moderate in the emergency department the pain is unchanged. The patient has not experienced similar symptoms in the past. Historical: - Allergies: 14:27 No Known Allergies; bp - Home Meds: 14:27 pantoprazole 40 mg oral tablet, delayed release (enteric coated) 1 tab daily [Active]; bp amlodipine oral [Active]; - PMHx: 14:27 Hypertensive disorder; Hep C; Gastroesophageal reflux disease; cervical cancer; bp - PSHx: 14:27 section; neck; tubal ligation (neck); bp - Immunization history:: Adult Immunizations up to date. - Infectious Disease History:: Denies. - Social history:: Smoking status: Patient reports the use of cigarette tobacco products, smokes one pack cigarettes per day. - Family history:: not pertinent. ROS: 14:28 Constitutional: Negative for fever, chills, and weight loss, Eyes: Negative for injury, stephen pain, redness, and discharge, ENT: Negative for injury, pain, and discharge, Neck: Negative for injury, pain, and swelling, Respiratory: Negative for shortness of breath, cough, wheezing, and pleuritic chest pain, Abdomen/GI: Negative for abdominal pain, nausea, vomiting, diarrhea, and constipation, Back: Negative for injury and pain, : Negative for injury, bleeding, discharge, and swelling, MS/Extremity: Negative for injury and deformity, Skin: Negative for injury, rash, and discoloration, Neuro: Negative for headache, weakness, numbness, tingling, and seizure, Psych: Negative for depression, anxiety, suicide ideation, homicidal ideation, and hallucinations, Allergy/Immunology: Negative for hives, rash, and allergies, Endocrine: Negative for neck swelling, polydipsia, polyuria, polyphagia, and marked weight changes, Hematologic/Lymphatic: Negative for swollen nodes, abnormal bleeding, and unusual bruising, 14:28 Cardiovascular: Positive for chest pain, Negative for edema, palpitations, paroxysmal nocturnal dyspnea, Exam: 14:28 Constitutional: This is a well developed, well nourished patient who is awake, alert, stephen and in no acute distress. Head/Face: Normocephalic, atraumatic. Eyes: Pupils equal round and reactive to light, extra-ocular motions intact. Lids and lashes normal. Conjunctiva and sclera are non-icteric and not injected. Cornea within normal limits. Periorbital areas with no swelling, redness, or edema. ENT: Nares patent. No nasal discharge, no septal abnormalities noted. Tympanic membranes are normal and external auditory canals are clear. Oropharynx with no redness, swelling, or masses, exudates, or evidence of obstruction, uvula midline. Mucous membranes moist. Neck: Trachea midline, no thyromegaly or masses palpated, and no cervical lymphadenopathy. Supple, full range of motion without nuchal rigidity, or vertebral point tenderness. No Meningismus. Chest/axilla: Normal chest wall appearance and motion. Nontender with no deformity. No lesions are appreciated. Cardiovascular: Regular rate and rhythm with a normal S1 and S2. No gallops, murmurs, or rubs. Normal PMI, no JVD. No pulse deficits. Respiratory: Lungs have equal breath sounds bilaterally, clear to auscultation and percussion. No rales, rhonchi or wheezes noted. No increased work of breathing, no retractions or nasal flaring. Abdomen/GI: Soft, non-tender, with normal bowel sounds. No distension or tympany. No guarding or rebound. No evidence of tenderness throughout. Back: No spinal tenderness. No costovertebral tenderness. Full range of motion. Skin: Warm, dry with normal turgor. Normal color with no rashes, no lesions, and no evidence of cellulitis. MS/ Extremity: Pulses equal, no cyanosis. Neurovascular intact. Full, normal range of motion., bilateral aka Neuro: Awake and alert, GCS 15, oriented to person, place, time, and situation. Cranial nerves II-XII grossly intact. Motor strength 5/5 in all extremities. Sensory grossly intact. Cerebellar exam normal. Normal gait. Psych: Awake, alert, with orientation to person, place and time. Behavior, mood, and affect are within normal limits. 14:28 ECG was reviewed by the Attending Physician. Vital Signs: 13:45 BP 124 / 79; Pulse 63; Resp 16; Temp 98; Pulse Ox 97% ; bp 15:46 BP 131 / 81; Pulse 67; Resp 16; Pulse Ox 98% ; bp MDM: 13:48 Medical Screening Exam initiated stephen 14:30 Differential diagnosis: abnormal EKG, acute myocardial infarction, acute pericarditis, stephen anxiety, coronary artery disease Cholelithiasis costochondritis, esophagitis, gastritis, hiatal hernia, pancreatitis, peptic ulcer disease, pericarditis, pleurisy, pneumonia, pulmonary embolus, stable angina, unstable angina. HEART Score: History: Moderately Suspicious (1), ECG: Normal (0), Age: > 45 and < 65 years (1), Risk Factors: > or = 3 Risk factors for atherosclerotic disease (2), [Hypertension] [Active Smoker] [+ Family HX] [Obesity] Troponin: < or = 1 x Normal Limit (0), Total Score = 4. The patient was given aspirin in the Emergency Department. DEBBIE Risk Score: 1 - Three or more CAD risk factors, 1 - Recent [<24hrs] Severe Angina, TOTAL SCORE = 2. Data reviewed: vital signs, nurses notes, lab test result(s), EKG, radiologic studies, CT scan, plain films. Consideration of Admission/Observation Patient was admitted/placed on observation. Escalation of care including admission/observation considered. I considered the following discharge prescriptions or medication management in the emergency department Medications were administered in the Emergency Department. See MAR. Independent interpretation of the following test(s) in the Emergency Department EKG: See my EKG interpretation above. Historians other than the Patient: pt well informed. Care significantly affected by the following chronic conditions: Hypertension, Obesity, Liver Disease, tobacco abuse. 15:30 ED course: cath in 02/01 in [place] completely negative. [facility] 03/12 13:49 Order name: Basic Metabolic Panel; Complete Time: 15:26 [facility] 03/12 13:49 Order name: CBC with Diff; Complete Time: 15:26 [facility] 03/12 13:49 Order name: LFT's; Complete Time: 15:26 [facility] 03/12 13:49 Order name: Magnesium; Complete Time: 15:26 [facility] 03/12 13:49 Order name: NT PRO-BNP; Complete Time: 15:26 [facility] 03/12 13:49 Order name: PT-INR; Complete Time: 15:26 [facility] 03/12 13:49 Order name: Troponin HS; Complete Time: 15:26 [facility] 03/12 13:49 Order name: Lipase; Complete Time: 15:26 [facility] 03/12 13:49 Order name: Urinalysis w/ reflexes; Complete Time: 15:26 [facility] 03/12 13:49 Order name: XRAY Chest (1 view) [facility] 03/12 14:28 Order name: CT Aorta for Dissection; Complete Time: 15:26 [facility] 03/12 13:49 Order name: EKG; Complete Time: 13:49 [facility] 03/12 13:49 Order name: Cardiac monitoring; Complete Time: 14:02 [facility] 03/12 13:49 Order name: EKG - Nurse/Tech; Complete Time: 14:02 [facility] 03/12 13:49 Order name: IV Saline Lock; Complete Time: 14:09 [facility] 03/12 13:49 Order name: Labs collected and sent; Complete Time: 14:09 [facility] 03/12 13:49 Order name: O2 Per Protocol; Complete Time: 14:01 [facility] 03/12 13:49 Order name: O2 Sat Monitoring; Complete Time: 14:01 [facility] EC:28 Rate is 66 beats/min. Rhythm is regular. QRS [place] is Normal. [place] interval is normal. QRS stephen interval is normal. QT interval is normal. No Q waves. No ST changes noted. Clinical impression: Normal ECG and No evidence of ischemia. Interpreted by me. Reviewed by me. Administered Medications: 14:15 Drug: NS 0.9% IV 1000 ml IV at 125 ml/hr continuous Route: IV; Rate: 125 ml/hr; Site: bp right forearm; 15:48 Follow up: IV Status: Completed infusion bp 14:15 Drug: Aspirin PO Chewable Tablet 324 mg PO once; 81 mg tablets x 4 Route: PO; bp 15:48 Follow up: Response: No adverse reaction bp 14:15 Drug: Famotidine IVP 20 mg IVP once; dilute with 10 mL 0.9% NaCl; give over 2 minutes bp Route: IVP; Site: right forearm; 15:48 Follow up: Response: No adverse reaction bp 14:44 Drug: GI Cocktail without - (Maalox PO 30 ml, Lidocaine Mucous Membrane 2 % 15 bp ml) PO once Route: PO; 15:48 Follow up: Response: No adverse reaction bp Disposition Summary: 03/12/24 15:32 Discharge Ordered Notes: Location: Home stephen Problem: new stephen Symptoms: have improved stephen Condition: Stable stephen Diagnosis - Chest pain, unspecified stephen - Gastro-esophageal reflux disease with esophagitis stephen - Tobacco abuse counseling stephen - Tobacco use stephen Followup: stephen - With: Private Physician - When: 2 - 3 days - Reason: Recheck today's complaints, Continuance of care, Re-evaluation by your physician Followup: stephen - With: Dion Araujo MD - When: 2 - 3 days - Reason: Recheck today's complaints, Re-evaluation by your physician Followup: stephen - With: Sadie Singh MD - When: 2 - 3 days - Reason: Recheck today's complaints, Re-evaluation by your physician Discharge Instructions: - Discharge Summary Sheet stephen - Nonspecific Chest Pain, Adult stephen - Esophagitis stephen - Gastroesophageal Reflux Disease, Adult stephen - Indigestion stephen - Self-Destructive Behavior stephen - Steps to Quit Smoking stephen - Nonspecific Chest Pain, Adult, [id number] stephen - Gastroesophageal Reflux Disease, Adult, [id number] stephen - Aspirin and Your Heart [facility] Forms: - Medication Reconciliation Form stephen - Antibiotic Education stephen - Prescription Opioid Use stephen - Patient Portal Instructions [facility] - Leadership Thank You Letter [facility] Prescriptions: - Carafate 1 gram Oral tablet - take 1 tablet ORAL route 4 times per day take on an empty stomach, beginning on stephen waking and last dose at bedtime; 50 tablet; Refills: 0, Product Selection Permitted - Protonix 40 mg Oral tablet, delayed release (enteric coated) - take 1 tablet ORAL route every 12 hours; 42 tablet; Refills: 0, Product stephen Selection Permitted Signatures: Dispatcher [employer] EDMS Eugene, Nigel, MD MD stephen Reddy, Roger, RN RN bp Corrections: (The following items were deleted from the chart) 14:27 PMHx: Hep C , in remission; bp bp
--- NOTE | 2024-03-12 15:32 | ER ---
Nurse's Notes [facility] Name: Fany Meza Age: 53 yrs Sex: Female : 1970 Arrival Date: 03/12/2024 Time: 13:45 Bed 2 Private MD: Diagnosis: Chest pain, unspecified;Gastro-esophageal reflux disease with esophagitis;Tobacco abuse counseling;Tobacco use Presentation: 03/12 13:45 Chief complaint: Patient states: LEFT CHEST PAIN RADIATING TO LEFT FLANK SINCE THIS AM. bp Coronavirus screen: At this time, the client does not indicate any symptoms associated with coronavirus-19. Ebola Screen: No symptoms or risks identified at this time. Initial Sepsis Screen: Does the patient meet any 2 criteria? No. Patient's initial sepsis screen is negative. Does the patient have a suspected source of infection? No. Patient's initial sepsis screen is negative. Risk Assessment: Do you want to hurt yourself or someone else? Patient reports no desire to harm self or others. Onset of symptoms was March 12, 2024. 13:45 Method Of Arrival: Ambulatory bp 13:45 Acuity: SHARAN 3 bp Triage Assessment: 13:45 General: Appears in no apparent distress. uncomfortable, Behavior is cooperative, bp appropriate for age, anxious. Pain: Complains of pain in chest. EENT: No deficits noted. Neuro: No deficits noted. Cardiovascular: Reports chest pain. Respiratory: No deficits noted. GI: No signs and/or symptoms were reported involving the gastrointestinal system. : No signs and/or symptoms were reported regarding the genitourinary system. Derm: No deficits noted. Musculoskeletal: No deficits noted. Historical: - Allergies: 14:27 No Known Allergies; bp - Home Meds: 14:27 pantoprazole 40 mg oral tablet, delayed release (enteric coated) 1 tab daily [Active]; bp amlodipine oral [Active]; - PMHx: 14:27 Hypertensive disorder; Hep C; Gastroesophageal reflux disease; cervical cancer; bp - PSHx: 14:27 section; neck; tubal ligation (neck); bp - Immunization history:: Adult Immunizations up to date. - Infectious Disease History:: Denies. - Social history:: Smoking status: Patient reports the use of cigarette tobacco products, smokes one pack cigarettes per day. - Family history:: not pertinent. Screenin:45 [facility] ED Fall Risk Assessment (Adult) History of falling in the last 3 months, bp including since admission No falls in past 3 months (0 pts) Confusion or Disorientation No (0 pts) Intoxicated or Sedated No (0 pts) Impaired Gait No (0 pts) Mobility Assist Device Used No (0 pt) Altered Elimination No (0 pt) Score/Fall Risk Level 0 - 2 = Low Risk. Abuse screen: Denies threats or abuse. Denies injuries from another. Nutritional screening: No deficits noted. Tuberculosis screening: No symptoms or risk factors identified. Assessment: 13:45 General: Appears uncomfortable, Behavior is cooperative, appropriate for age, anxious. bp Pain: Pain radiates to back Pain began suddenly. Neuro: No deficits noted. Vital Signs: 13:45 BP 124 / 79; Pulse 63; Resp 16; Temp 98; Pulse Ox 97% ; bp 15:46 BP 131 / 81; Pulse 67; Resp 16; Pulse Ox 98% ; bp ED Course: 13:45 Patient maintains SpO2 saturation greater than 95% on room air. bp 13:45 Arm band placed on. bp 13:45 Patient has correct armband on for positive identification. Provided Education on: NA. bp Client placed on continuous cardiac and pulse oximetry monitoring. NIBP monitoring applied. 13:47 Patient arrived in ED. im 13:48 Nigel Knight MD is Attending Physician. stephen 13:50 Roger Blakely, SCOTTY is Primary Nurse. bp 14:09 Initial lab(s) drawn, by ks, sent to lab. Urine collected: clean catch specimen, clear, bp EKG done, by ED staff, reviewed by Nigel Knight MD. Inserted saline lock: 20 gauge in right forearm, using aseptic technique. Blood collected. Flushed with 10 mL NS. 14:27 Triage completed. bp 15:03 CT Aorta for Dissection In Process Unspecified. EDMS 15:11 XRAY Chest (1 view) In Process Unspecified. EDMS 15:32 Dion Araujo MD is Referral Physician. stephen 15:32 Sadie Singh MD is Referral Physician. stephen 15:47 No provider procedures requiring assistance completed. IV discontinued, intact, bp bleeding controlled, No redness/swelling at site. Pressure dressing applied. Administered Medications: 14:15 Drug: NS 0.9% IV 1000 ml IV at 125 ml/hr continuous Route: IV; Rate: 125 ml/hr; Site: bp right forearm; 15:48 Follow up: IV Status: Completed infusion bp 14:15 Drug: Aspirin PO Chewable Tablet 324 mg PO once; 81 mg tablets x 4 Route: PO; bp 15:48 Follow up: Response: No adverse reaction bp 14:15 Drug: Famotidine IVP 20 mg IVP once; dilute with 10 mL 0.9% NaCl; give over 2 minutes bp Route: IVP; Site: right forearm; 15:48 Follow up: Response: No adverse reaction bp 14:44 Drug: GI Cocktail without - (Maalox PO 30 ml, Lidocaine Mucous Membrane 2 % 15 bp ml) PO once Route: PO; 15:48 Follow up: Response: No adverse reaction bp Medication: 13:45 VIS not applicable for this client. bp Outcome: 15:32 Discharge ordered by . stephen 15:47 Discharged to home ambulatory, bp 15:47 Condition: stable 15:47 Discharge instructions given to patient, Instructed on discharge instructions, follow up and referral plans. medication usage, Demonstrated understanding of instructions, follow-up care, medications, Prescriptions given X 2, 15:49 Patient left the ED. bp Signatures: Dispatcher [employer] EDMS Nigel Knight MD MD cha Peltier, Brian, RN RN bp Jaelyn Lemus Corrections: (The following items were deleted from the chart) 14:28 14:27 PMHx: Hep C , in remission; bp bp 15:47 15:46 BP 124 / 79; Pulse 65bpm; Resp 16bpm; Pulse Ox 98%; bp bp
[2024-03-12 17:50] VITALS: TEMP 98
[2024-03-12 17:55] VITALS: BP 131/81; O2SAT 98
== END 2024-03-12 15:49 | disposition home or self-care (01) ==
LOC: ER 13:45
DX: R07.89 Other chest pain (principal); K21.00 Gastro-esophageal reflux disease with esophagitis, without bleeding; Z72.0 Tobacco use; Z71.6 Tobacco abuse counseling; I10 Essential (primary) hypertension
CPT/HCPCS: 96361; 85025; 81001; 80048; 36415; 83735; 85610; 80076; 84484; 83690; 83880; 71275; 74175; 71045; 96374; 99284; Q9967; J7030

== ENCOUNTER 2024-05-10 10:21 | Emergency (ER) | payer OTHER ==
[2024-05-10] MEDS ORDERED: KETOROLAC 30 MG/ML INJ ONE (10:47)
--- NOTE | 2024-05-10 11:09 | RAD REPORT ---
EXAMINATION: CT CERVICAL SPINE WITHOUT CONTRAST CLINICAL INDICATION: Female, 53 years old. right neck pain, cervical surgery 3 years ago, no trauma TECHNIQUE: Axial CT images through the cervical spine were obtained without intravenous contrast. Sag ittal and coronal reformatted images were created from the data set. One or more of the following dose reduction techniques were used: Automated exposure control, adjustment of the mA and/or kV accor ding to patient size, and/or iterative reconstruction. Unless otherwise specified, incidental findings do not require dedicated imaging follow-up. [id number]. COMPARISON: 01/20/2023 FINDINGS: ALIGNMENT: Reversal of the normal cervical lordosis which is likely postoperative. BONE: Vertebral body heights are maintained. No aggressive osseous lesions. DISCS: Fusion is present across the C4-5, C5-6, C6-7, and C7-T1 disc spaces. Posterior kendal and pedicl e screw extending from C2 through C5. There is lucency around the C3 screws without significant purchase of the C3 pedicles. Posterior decompression at these levels. LEVELS: Severe neural foraminal narrowing is present bilaterally at T1-T2 and moderate neural foramin al narrowing is present at C3-4. SOFT TISSUE: No significant abnormalities in the soft tissue of the neck. The visualized lung apices are clear. IMPRESSION: No acute fracture or traumatic malalignment of cervical spine. See above regarding screws at the C3 p edicles. Degenerative changes above and below the fusion results in right-sided neural foraminal narrowing at C3-4 and T1-T2 which could account for a right-sided radiculopathy.
--- NOTE | 2024-05-10 11:59 | EDPHYS ---
Physician Documentation [facility] Name: Fany Meza Age: 53 yrs Sex: Female : 1970 Arrival Date: 05/10/2024 Time: 10:21 Bed 11 Private MD: ED Physician Tam Meraz HPI: 05/10 11:55 This 53 yrs old Female presents to ER via Ambulatory with complaints of Shoulder pain rn neck pain. 11:55 The patient or guardian complains of pain, that is chronic. The symptoms are located at rn the C2 and C3. The pain radiates to the back of neck, shoulder. Modifying factors: The symptoms are alleviated by nothing. the symptoms are aggravated by movement, pressure. Severity of symptoms: At their worst the symptoms were moderate, in the emergency department the symptoms are unchanged. The patient has experienced similar episodes in the past. Patient reports chronic neck pain for years, had cervical procedure done with fusion and screws in the past. Now reports 2 days of worsening pain, radiation to the right shoulder and scapula, feels burning sensation and hurts to turn her head to the right. Denies any fever or chills. No IV drug use. No trauma. No weakness. No chest pain.. Historical: - Allergies: 10:40 No Known Allergies; db - PMHx: 10:40 cervical cancer; Gastroesophageal reflux disease; Hypertensive disorder; db - PSHx: 10:40 section; neck; tubal ligation (neck); db - Immunization history:: Adult Immunizations unknown. - Infectious Disease History:: Denies. - Social history:: Smoking status: Patient/guardian denies using tobacco, Stopped _ months ago 0.8. - Family history:: not pertinent. - Hospitalizations: : No recent hospitalization is reported. ROS: 11:55 Constitutional: Negative for fever, chills, and weight loss, Neck: Positive for acute rn on chronic neck pain Cardiovascular: Negative for chest pain, palpitations, and edema, Respiratory: Negative for shortness of breath, cough, wheezing, and pleuritic chest pain, Abdomen/GI: Negative for abdominal pain, nausea, vomiting, diarrhea, and constipation, MS/Extremity: Negative for injury and deformity, Neuro: Negative for headache, weakness, numbness, tingling, and seizure, Exam: 11:55 Constitutional: This is a well developed, well nourished patient who is awake, alert, rn and in no acute distress. Neck: Mild tenderness over the right sternocleidomastoid. No swelling. No crepitus. No masses. No spinal tenderness. Cardiovascular: Regular rate and rhythm. No pulse deficits. Neuro: Awake and alert, GCS 15, oriented to person, place, time, and situation. Cranial nerves II-XII grossly intact. Motor strength 5/5 in all extremities. Sensory grossly intact. Cerebellar exam normal. Normal gait. Vital Signs: 10:39 BP 148 / 94; Pulse 64; Resp 16; Temp 98.8(O); Pulse Ox 95% ; Weight 74.84 kg; Height 5 db ft. 4 in. ; 12:24 BP 146 / 90; Pulse 64; Resp 18; Temp 98.8; Pulse Ox 95% on R/A; db 10:39 Body Mass Index 28.32 (74.84 kg, 162.56 cm) db MDM: 10:28 Medical Screening Exam initiated rn 11:55 Differential diagnosis: arthritis, Cervical Disc Herniation Cervical Discogenic Pain rn Cervical Facet Syndrome Cervical Raiculopathy Cervical Spondylosis cervical strain. Data reviewed: vital signs, nurses notes, radiologic studies, CT scan, and as a result, I will discharge patient. Counseling: I had a detailed discussion with the patient and/or guardian regarding the historical points, exam findings, and any diagnostic results supporting the discharge/admit diagnosis, radiology results, the need for outpatient follow up, to return to the emergency department if symptoms worsen or persist or if there are any questions or concerns that arise at home. Response to treatment: the patient's symptoms have mildly improved after treatment, and as a result, I will discharge patient. Special discussion: I discussed with the patient/guardian in detail that at this point there is no indication for admission to the hospital. It is understood, however, that if the symptoms persist or worsen the patient needs to return immediately for re-evaluation. Based on the history and exam findings, there is no indication for further emergent testing or inpatient evaluation. I discussed with the patient/guardian the need to see the back specialist for further evaluation of the symptoms. ED course: No acute findings and workup. Does show reason for cervical radiculopathy as well as thoracic radiculopathy on imaging which is consistent with her symptomatology. Has follow-up with her neck surgeon and also recommend MRI. I have personally reviewed all of the results, including but not limited to imaging deemed necessary to safely discharge this patient at this time. All results given to and printed out for patient. I personally went over all the results with the patient and answered all questions. Patient will follow-up with PCP and or specialist as discussed. Return precautions given and understood.. 05/10 10:37 Order name: CT C Spine; Complete Time: 11:11 [id number] Administered Medications: 10:49 Drug: Ketorolac IM 30 mg IM once Route: IM; Site: right deltoid; db 12:24 Follow up: Response: No adverse reaction db Disposition Summary: 05/10/24 11:58 Discharge Ordered Notes: Location: Home rn Problem: chronic rn Symptoms: have improved rn Condition: Stable rn Diagnosis - Spasmodic torticollis rn - Cervical disc disorder with radiculopathy, cervicothoracic region rn Followup: rn - With: Private Physician - When: As needed - Reason: Recheck today's complaints, Re-evaluation by your physician Discharge Instructions: - Discharge Summary Sheet rn - Cervical Radiculopathy rn - Acute Torticollis, Adult rn Forms: - Medication Reconciliation Form rn - Antibiotic rn cardiology - Prescription Opioid Use rn - Patient Portal Instructions rn - Leadership Thank You Letter rn Signatures: Dispatcher [employer] Tam Pinon MD MD rn Leal, Jahala RN RN jl7 Ness Marx RN RN db
--- NOTE | 2024-05-10 11:59 | ER ---
Nurse's Notes [facility] Name: Fany Meza Age: 53 yrs Sex: Female : 1970 Arrival Date: 05/10/2024 Time: 10:21 Bed 11 Private MD: Diagnosis: Spasmodic torticollis;Cervical disc disorder with radiculopathy, cervicothoracic region Presentation: 05/10 10:39 Chief complaint: Patient states: NECK, AND BACK PAIN. HX OF NECK SX. X 3 DAYS. db Coronavirus screen: Client denies travel out of the [place] in the last 14 days. At this time, the client does not indicate any symptoms associated with coronavirus-19. Ebola Screen: Patient negative for fever greater than or equal to 101.5 degrees Fahrenheit, and additional compatible Ebola Virus Disease symptoms Patient denies exposure to infectious person. Patient denies travel to an Ebola-affected area in the 21 days before illness onset. No symptoms or risks identified at this time. Initial Sepsis Screen: Does the patient meet any 2 criteria? No. Patient's initial sepsis screen is negative. Does the patient have a suspected source of infection? No. Patient's initial sepsis screen is negative. Risk Assessment: Do you want to hurt yourself or someone else? Patient reports no desire to harm self or others. Onset of symptoms was May 07, 2024. 10:39 Method Of Arrival: Ambulatory db 10:39 Acuity: SHARAN 4 db Triage Assessment: 10:40 General: Appears in no apparent distress. comfortable, Behavior is calm, cooperative. db Pain: Complains of pain in scalp. Neuro: Level of Consciousness is awake, alert, obeys commands, Oriented to person, place, time, situation. Respiratory: Airway is patent Respiratory effort is even, unlabored, Respiratory pattern is regular, symmetrical. Historical: - Allergies: 10:40 No Known Allergies; db - PMHx: 10:40 cervical cancer; Gastroesophageal reflux disease; Hypertensive disorder; db - PSHx: 10:40 section; neck; tubal ligation (neck); db - Immunization history:: Adult Immunizations unknown. - Infectious Disease History:: Denies. - Social history:: Smoking status: Patient/guardian denies using tobacco, Stopped _ months ago 0.8. - Family history:: not pertinent. - Hospitalizations: : No recent hospitalization is reported. Screenin:53 [facility] ED Fall Risk Assessment (Adult) History of falling in the last 3 months, db including since admission No falls in past 3 months (0 pts) Confusion or Disorientation No (0 pts) Intoxicated or Sedated No (0 pts) Impaired Gait No (0 pts) Mobility Assist Device Used No (0 pt) Altered Elimination No (0 pt) Score/Fall Risk Level 0 - 2 = Low Risk Oriented to surroundings, Maintained a safe environment. Abuse screen: Denies threats or abuse. Denies injuries from another. Nutritional screening: No deficits noted. Tuberculosis screening: No symptoms or risk factors identified. Assessment: 10:53 Reassessment: Patient appears in no apparent distress at this time. Patient and/or db family updated on plan of care and expected duration. Pain level reassessed. Patient is alert, oriented x 3, equal unlabored respirations, skin warm/dry/pink. Reassessment: Patient appears in no apparent distress at this time. General: Appears in no apparent distress. comfortable, Behavior is calm, cooperative. Pain: Complains of pain in back of neck. Neuro: Level of Consciousness is awake, alert, obeys commands, Oriented to person, place, time, situation. 12:24 Reassessment: Patient appears in no apparent distress at this time. Patient and/or db family updated on plan of care and expected duration. Pain level reassessed. Patient is alert, oriented x 3, equal unlabored respirations, skin warm/dry/pink. Patient states feeling better. Vital Signs: 10:39 BP 148 / 94; Pulse 64; Resp 16; Temp 98.8(O); Pulse Ox 95% ; Weight 74.84 kg; Height 5 db ft. 4 in. ; 12:24 BP 146 / 90; Pulse 64; Resp 18; Temp 98.8; Pulse Ox 95% on R/A; db 10:39 Body Mass Index 28.32 (74.84 kg, 162.56 cm) db ED Course: 10:23 Patient arrived in ED. mr 10:28 Tam Meraz MD is Attending Physician. rn 10:40 Triage completed. db 10:41 Arm band placed on Patient placed in an exam room. db 10:44 Ness Marx, SCOTTY is Primary Nurse. db 10:[address] via stretcher. db 10:53 Patient has correct armband on for positive identification. Bed in low position. Call db light in reach. Side rails up X 1. Pillow given. 10:58 CT C Spine In Process Unspecified. EDMS 12:24 Provided Education on: DISCHARGE. db 12:24 No provider procedures requiring assistance completed. Patient did not have IV access db during this emergency room visit. Administered Medications: 10:49 Drug: Ketorolac IM 30 mg IM once Route: IM; Site: right deltoid; db 12:24 Follow up: Response: No adverse reaction db Medication: 10:53 VIS not applicable for this client. db Outcome: 11:58 Discharge ordered by MD. rn 12:24 Discharged to home ambulatory, db 12:24 Condition: stable 12:24 Discharge instructions given to patient, Instructed on discharge instructions, follow up and referral plans. 12:28 Patient left the ED. db Signatures: Dispatcher [employer] EDNV Christina Cook, Tam Huitron MD MD rn Benton, Danielle, RN RN db Corrections: (The following items were deleted from the chart) 12:25 12:24 Discharge instructions given to patient, Instructed on discharge instructions, db follow up and referral plans. Prescriptions given X 1, db
[2024-05-10 18:01] VITALS: TEMP 98.8; O2SAT 95
[2024-05-10 18:02] VITALS: BP 146/90
== END 2024-05-10 12:28 | disposition home or self-care (01) ==
LOC: ER 10:21
DX: G24.3 Spasmodic torticollis (principal); M50.13 Cervical disc disorder with radiculopathy, cervicothoracic region
CPT/HCPCS: 72125

== ENCOUNTER 2024-06-02 15:20 | Emergency (ER) | payer OTHER ==
--- NOTE | 2024-06-02 16:42 | RAD REPORT ---
EXAM: Chest Single View HISTORY: CHEST PAIN COMPARISON: 03/12/2024 FINDINGS: LUNGS/PLEURA: The lungs are clear. No pleural effusions or pneumothorax. No pulmonary edema. MEDIASTINUM: The mediastinal silhouette is within normal limits. CARDIAC: The cardiac silhouette is within normal limits. UPPER ABDOMEN: No significant abnormality. BONES: No acute abnormality. LINES/TUBES/OTHER: N/A IMPRESSION: No evidence of acute cardiopulmonary disease.
[2024-06-02 17:29] LABS: Absolute Eosinophils 0.1 K/uL (0-0.5); Absolute Lymphocytes (CBC) 1.6 K/uL (0.7-4.9); Absolute Monocytes 0.7 K/uL (0.1-1.3); Absolute Neutrophil 5.8 K/uL (1.8-8.0); Basophils % 0.5 % (0-1.3); Eosinophils % 0.8 % (0-4.4); Hemoglobin 14.5 g/dL (12.0-15.0); Lymphocytes % 19.6 % (15.3-44.8); MCH 30.1 pg (27.0-35.0); MCV 91.2 fL (80-100); MPV 7.9 fL (7.6-11.3); Monocytes % 8.1 % (3.3-12.3); Nucleated Red Blood Cells % 0.1 % (0-0); Platelets 278 thou/uL (152-406); RBC Red Blood Cell Count 4.82 M/uL (3.86-4.86); Red Cell Distribution Width 14.8 % (12.1-15.2)
[2024-06-02 18:20] LABS: Anion Gap 8.6 mEq/L (5.0-15.0); Potassium 3.6 mEq/L (3.5-5.1); Troponin High Sensitivity 3.8 pg/mL (<58.9)
--- NOTE | 2024-06-02 18:27 | ER ---
Nurse's Notes [facility] Name: Fany Meza Age: 54 yrs Sex: Female : 1970 Arrival Date: 06/02/2024 Time: 15:20 Bed DX4 Private MD: Diagnosis: Cervical disc disorder with radiculopathy Presentation: 06/02 15:28 Coronavirus screen: Client denies travel out of the [place] in the last 14 days. Ebola ss Screen: Patient denies exposure to infectious person. Patient denies travel to an Ebola-affected area in the 21 days before illness onset. Complicating Factors: There are no complicating factors for this patient. Initial Sepsis Screen: Does the patient meet any 2 criteria? No. Patient's initial sepsis screen is negative. Does the patient have a suspected source of infection? No. Patient's initial sepsis screen is negative. Risk Assessment: Do you want to hurt yourself or someone else? Patient reports no desire to harm self or others. 15:28 Method Of Arrival: Ambulatory ss 15:28 Acuity: SHARAN 3 15:30 Chief complaint: Patient states: L arm throbbing and numbness that began 2-3 hours ago. ss Pt reports she was due to have an MRI today, but they called to cancel it. Onset of symptoms was June 02, 2024. 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 - Infectious Disease History:: Denies. - Social history:: Smoking status: Patient/guardian denies using tobacco, Stopped _ months ago 1. - Family history:: not pertinent. - Hospitalizations: : No recent hospitalization is reported. Assessment: 19:39 Reassessment: Patient and/or family updated on plan of care and expected duration. Pain br2 level reassessed. Patient is alert, oriented x 3, equal unlabored respirations, skin warm/dry/pink. Patient states feeling better. Patient states symptoms have improved. 19:41 Injury Description: Laceration is. br2 Vital Signs: 15:28 Pulse 88; Resp 16; Pulse Ox 100% on R/A; ss ED Course: 15:25 Patient arrived in ED. cj3 15:26 Tam Meraz MD is Attending Physician. rn 15:29 Triage completed. ss 15:29 Arm band placed on right wrist. ss 16:38 XRAY Chest (1 view) In Process Unspecified. EDMS 17:26 Initial lab(s) drawn, by me, sent to lab. EKG done, by ED staff, reviewed by Tam Meraz MD. Inserted saline lock: 20 gauge in right antecubital area, using aseptic technique. Blood collected. Flushed with 10 mL NS. Administered Medications: No medications were administered Outcome: 18:27 Discharge ordered by MD. rn 19:41 Discharged to home ambulatory, br2 19:41 Condition: stable 19:41 Discharge instructions given to patient, Instructed on discharge instructions, follow up and referral plans. Demonstrated understanding of instructions, follow-up care, medications, Prescriptions given X 1, 19:42 Patient left the ED. br2 Signatures: Dispatcher [employer] EDMS Tam Meraz MD MD rn Blanchard, Shelby, RN RN Yue Ng RN RN br2 Symone Gallo kb4 Kaila Meza 3
--- NOTE | 2024-06-02 18:27 | EDPHYS ---
Physician Documentation [facility] Name: Fany Meza Age: 54 yrs Sex: Female : 1970 Arrival Date: 06/02/2024 Time: 15:20 Bed DX4 Private MD: ED Physician Tam Meraz HPI: 06/02 15:54 This 54 yrs old Female presents to ER via Ambulatory with complaints of Numbness Of Arm.rn 15:54 The patient or guardian complains of Numbness and tingling. The complaints affect the rn anterior aspect of left shoulder, left bicep, dorsal aspect of left forearm and left hand. 15:55 Onset: The symptoms/episode began/occurred yesterday. Treatment prior to arrival rn includes: no previous treatment. Associated signs and symptoms: Pertinent negatives: decreased range of motion, fever, pain, swelling, weakness. Patient reports has had neck problems in the past, has had neck surgery, seen here recently for radiculopathy. Now having tingling of the left upper extremity. Denies pain or injury. No swelling. No discoloration. No weakness. She believes it is related to her neck but today started having left outer chest/shoulder pain and discomfort that she had not had in the past so came to be evaluated.. 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 - Infectious Disease History:: Denies. - Social history:: Smoking status: Patient/guardian denies using tobacco, Stopped _ months ago 1. - Family history:: not pertinent. - Hospitalizations: : No recent hospitalization is reported. ROS: 15:55 Constitutional: Negative for fever, chills, and weight loss, Neck: Positive for neck rn pain Cardiovascular: Negative for palpitations, and edema, Respiratory: Negative for shortness of breath, cough, wheezing, and pleuritic chest pain, Abdomen/GI: Negative for abdominal pain, nausea, vomiting, diarrhea, and constipation, MS/Extremity: Negative for injury and deformity, Neuro: Negative for headache, and seizure, Exam: 15:55 Constitutional: This is a well developed, well nourished patient who is awake, alert, rn and in no acute distress. Head/Face: Normocephalic, atraumatic. Neck: Cervical surgical scar but no swelling Cardiovascular: Regular rate and rhythm. No pulse deficits. Respiratory: No increased work of breathing, no retractions or nasal flaring. MS/ Extremity: Pulses equal, no cyanosis. Neurovascular intact. Full, normal range of motion. Equal circumference. No weakness or drift noted Neuro: Awake and alert, GCS 15, oriented to person, place, time, and situation. Cranial nerves II-XII grossly intact. Motor strength 5/5 in all extremities. Cerebellar exam normal. Normal gait. 18:25 ECG was reviewed by the Attending Physician. rn Vital Signs: 15:28 Pulse 88; Resp 16; Pulse Ox 100% on R/A; ss MDM: 15:26 Medical Screening Exam initiated rn 18:25 Differential diagnosis: Radiculopathy, paresthesias. Data reviewed: vital signs, nurses rn notes. 18:26 Counseling: I had a detailed discussion with the patient and/or guardian regarding the rn historical points, exam findings, and any diagnostic results supporting the discharge/admit diagnosis, lab results, radiology results, the need for outpatient follow up, to return to the emergency department if symptoms worsen or persist or if there are any questions or concerns that arise at home. Special discussion: I discussed with the patient/guardian in detail that at this point there is no indication for admission to the hospital. It is understood, however, that if the symptoms persist or worsen the patient needs to return immediately for re-evaluation. ED course: No acute findings and workup today. Normal ECG. Troponin negative. Chest x-ray images negative for pneumothorax or pneumonia. Will discharge home as likely cervical radiculopathy and paresthesia. Return precautions given and understood. Already has outpatient MRI ordered and scheduled.. 06/02 15: Order name: Basic Metabolic Panel; Complete Time: 18:25 rn 06/02 15: Order name: CBC with Diff; Complete Time: 18:25 rn 06/02 15: Order name: Troponin HS; Complete Time: 18:25 rn 06/02 15: Order name: XRAY Chest (1 view); Complete Time: 16:47 rn 06/02 15:31 Order name: EKG; Complete Time: 15:32 rn 06/02 15:31 Order name: Cardiac monitoring rn 06/02 15:31 Order name: EKG - Nurse/Tech; Complete Time: 17:27 rn 06/02 15:31 Order name: IV Saline Lock; Complete Time: 17:27 rn 06/02 15:31 Order name: Labs collected and sent; Complete Time: 17:27 rn 06/02 15:31 Order name: O2 Per Protocol rn 06/02 15:31 Order name: O2 Sat Monitoring rn EC:25 Rate is 64 beats/min. Rhythm is regular. QRS [place] is Normal. NV interval is normal. QRS rn interval is normal. QT interval is normal. No Q waves. T waves are Normal. No ST changes noted. Clinical impression: Normal ECG. Interpreted by me. Reviewed by me. Administered Medications: No medications were administered Disposition Summary: 06/02/24 18:27 Discharge Ordered Notes: Location: Home rn Problem: an ongoing problem rn Symptoms: are unchanged rn Condition: Stable rn Diagnosis - Cervical disc disorder with radiculopathy rn Followup: rn - With: Private Physician - When: As needed - Reason: Recheck today's complaints, Re-evaluation by your physician Discharge Instructions: - Discharge Summary Sheet rn - Cervical Radiculopathy rn Forms: - Medication Reconciliation Form rn - Antibiotic chief crna - Prescription Opioid Use rn - Patient Portal Instructions rn - Leadership Thank You Letter rn Prescriptions: - Medrol ([place]) 4 mg Oral Tablets, Dose Pack - take 1 tablet ORAL route as directed - follow package instructions; 1 packet; rn Refills: 0, Product Selection Permitted Signatures: Dispatcher [employer] Tam Pinon MD MD rn Blanchard, Shelby, RN RN ss
[2024-06-03 08:16] VITALS: O2SAT 100
--- NOTE | 2024-06-05 12:06 | EKG ---
Test Date: 2024-06-02 Test Time: 17:24:21 Plant Health Manager: KRYSTINA MEASUREMENT RESULTS: Intervals: Rate: 64 IN: 136 QRSD: 78 QT: 424 QTc: 437 [place]: P: 56 IN: 136 QRS: 57 T: 22 INTERPRETIVE STATEMENTS: Normal sinus rhythm Normal ECG Compared to ECG 03/12/2024 13:58:56 No significant changes Electronically Signed On 06-05-24 12:04:37 AUTO BODY PAINTER by Stan Peralta
== END 2024-06-02 19:42 | disposition home or self-care (01) ==
LOC: ER 15:20
DX: M50.10 Cervical disc disorder with radiculopathy, unspecified cervical region (principal)
CPT/HCPCS: 36415; 71045; 80048; 84484; 85025; 93005; 99284

== ENCOUNTER 2024-07-30 13:19 | Emergency (ER) | payer OTHER ==
[2024-07-30] MEDS ORDERED: ASPIRIN 81 MG CHEWABLE TABLET ONE (13:51)
[2024-07-30] MEDS ORDERED: ACETAMINOPHEN 500 MG TAB ONE (13:51)
[2024-07-30] MEDS ORDERED: NA CHLORIDE 0.9% 1,000 ML ONE (13:52)
[2024-07-30 14:38] LABS: Absolute Eosinophils 0.1 K/uL (0-0.5); Absolute Lymphocytes (CBC) 1.2 K/uL (0.7-4.9); Absolute Monocytes 0.6 K/uL (0.1-1.3); Absolute Neutrophil 4.3 K/uL (1.8-8.0); Basophils % 0.5 % (0-1.3); Eosinophils % 0.8 % (0-4.4); Hematocrit 42.9 % (36.0-45.0); Hemoglobin 14.3 g/dL (12.0-15.0); Lymphocytes % 19.7 % (15.3-44.8); MCH 30.3 pg (27.0-35.0); MCHC 33.2 g/dL (32.0-36.0); MCV 91.1 fL (80-100); MPV 7.8 fL (7.6-11.3); Monocytes % 10.2 % (3.3-12.3); Neutrophils % 68.8 % (41.7-73.7); Nucleated Red Blood Cells % 0.1 % (0-0); Platelets 266 thou/uL (152-406); RBC Red Blood Cell Count 4.71 M/uL (3.86-4.86); Red Cell Distribution Width 15.4 % (12.1-15.2)
--- NOTE | 2024-07-30 14:48 | RAD REPORT ---
Procedure: Chest Pa And Lat (2 Views) HISTORY: Cough COMPARISON: May 2024 FINDINGS: The lungs appear clear of acute infiltrate. No significant pleural effusion noted. The heart is normal size. IMPRESSION: No acute abnormality is displayed.
[2024-07-30 14:56] LABS: PT Prothrombin Time 11.5 SECONDS (10-13.0); Protime INR 1.01
[2024-07-30 15:00] LABS: Anion Gap 5.1 mEq/L (5.0-15.0); BUN Blood Urea Nitrogen 9 mg/dL (7-18); Bicarbonate 29 mEq/L (21-32); Glomerular Filtration Rate 104 ml/min (=/>90); Glucose Level 105 mg/dL (74-106); Magnesium 2.2 mg/dL (1.6-2.4); NT PRO-BNP 111 pg/mL (<125); Potassium 4.1 mEq/L (3.5-5.1); Sodium Level 139 mEq/L (136-145)
[2024-07-30 15:01] LABS: Troponin High Sensitivity < 3.0 pg/mL (<58.9)
[2024-07-30 15:04] LABS: Albumin 4.3 g/dL (3.4-5.0); Albumin/Globulin Ratio 1.3 (1.1-1.8); Anion Gap 7.1 mEq/L (5.0-15.0); Bilirubin Total 0.4 mg/dL (0.2-1.0); Globulin 3.4 g/dL (2.3-3.5); Influenza A Ag Negative; Influenza B Ag Negative; Potassium 4.1 mEq/L (3.5-5.1); Protein, Total 7.7 g/dL (6.4-8.2); SARS-CoV-2 Antigen Rapid Res Negative (Negative)
--- NOTE | 2024-07-30 15:32 | ER ---
Nurse's Notes [facility] [place] Name: Fany Meza Age: 54 yrs Sex: Female : 1970 Arrival Date: 07/30/2024 Time: 13:19 Bed 13 Private MD: Diagnosis: Chest pain, unspecified;Tobacco abuse counseling;Tobacco use;Unspecified symptoms and signs involving the musculoskeletal system Presentation: 07/30 13:31 Chief complaint: Patient states: CP and SOB. Coronavirus screen: Client denies travel ll1 out of the [place] in the last 14 days. Ebola Screen: Patient denies travel to an Ebola-affected area in the 21 days before illness onset. Initial Sepsis Screen: Does the patient meet any 2 criteria? No. Patient's initial sepsis screen is negative. Does the patient have a suspected source of infection? No. Patient's initial sepsis screen is negative. Risk Assessment: Do you want to hurt yourself or someone else? Patient reports no desire to harm self or others. Onset of symptoms. 13:31 Method Of Arrival: Ambulatory ll1 13:31 Acuity: SHARAN 3 ll1 Triage Assessment: 13:32 General: Appears distressed, uncomfortable, Behavior is calm, cooperative, appropriate ll1 for age. Pain: Complains of pain in chest. Cardiovascular: Reports chest pain, shortness of breath. Historical: - Allergies: 13:30 No Known Allergies; ll1 - PMHx: 13:30 cervical cancer; Gastroesophageal reflux disease; Hypertensive disorder; ll1 - PSHx: 13:30 section; neck; tubal ligation (neck); ll1 - Immunization history:: Adult Immunizations up to date. - Infectious Disease History:: Denies. - Social history:: Smoking status: Patient reports the use of cigarette tobacco products, smokes one-half pack cigarettes per day. - Family history:: not pertinent. Screenin:54 [facility] ED Fall Risk Assessment (Adult) History of falling in the last 3 months, bp including since admission No falls in past 3 months (0 pts) Confusion or Disorientation No (0 pts) Intoxicated or Sedated No (0 pts) Impaired Gait No (0 pts) Mobility Assist Device Used No (0 pt) Altered Elimination No (0 pt) Score/Fall Risk Level 0 - 2 = Low Risk Oriented to surroundings. Abuse screen: Denies threats or abuse. Denies injuries from another. Nutritional screening: No deficits noted. Tuberculosis screening: No symptoms or risk factors identified. Assessment: 15:54 Reassessment: Patient appears in no apparent distress at this time. Patient is alert, bp oriented x 3, equal unlabored respirations, skin warm/dry/pink. Pain: Denies pain. Vital Signs: 13:31 BP 160 / 90; Pulse 73; Resp 16; Pulse Ox 100% ; Weight 76.2 kg; Height 5 ft. 4 in. ; ll1 Pain 6/10; 15:55 BP 147 / 85; Pulse 75; Resp 16; Pulse Ox 99% ; bp 13:31 Body Mass Index 28.84 (76.20 kg, 162.56 cm) ll1 13:31 Pain Scale: Adult ll1 ED Course: 13:22 Patient arrived in ED. al6 13:24 Nigel Knight MD is Attending Physician. stephen 13:30 Arm band placed on Patient placed in an exam room, on a stretcher. ll1 13:32 Triage completed. ll1 13:35 Roger Blakely, RN is Primary Nurse. bp 13:42 EKG done, by ED staff, reviewed by Nigel Knight MD. em1 14:02 Initial lab(s) drawn, by sc, sent to lab. Inserted saline lock: 20 gauge in right bp antecubital area, using aseptic technique. Blood collected. Flushed with 10 mL NS. 14:32 Chest Pa And Lat (2 Views) XRAY In Process Unspecified. EDMS 15:31 Dion Araujo MD is Referral Physician. [facility] 15:54 Patient has correct armband on for positive identification. Client placed on continuous bp cardiac and pulse oximetry monitoring. NIBP monitoring applied. 15:54 No provider procedures requiring assistance completed. IV discontinued, intact, bp bleeding controlled, No redness/swelling at site. Pressure dressing applied. Patient maintains SpO2 saturation greater than 95% on room air. Administered Medications: 14:01 Drug: Aspirin PO Chewable Tablet 324 mg PO once; 81 mg tablets x 4 Route: PO; bp 14:58 Follow up: Response: No adverse reaction bp 14:02 Drug: NS 0.9% IV 1000 ml IV at 1000 ml once; to be given as a bolus over 60 minutes bp Route: IV; Rate: 1000 ml; Site: right antecubital; 14:02 Drug: Acetaminophen PO 1000 mg PO once Route: PO; bp 14:59 Follow up: Response: No adverse reaction bp Medication: 15:54 VIS not applicable for this client. bp Outcome: 15:32 Discharge ordered by . stephen 15:54 Discharged to home ambulatory, bp 15:54 Condition: stable 15:54 Discharge instructions given to patient, Instructed on discharge instructions, follow up and referral plans. Demonstrated understanding of instructions, follow-up care, 15:56 Patient left the ED. bp Signatures: Dispatcher [employer] EDNigel Metz MD MD cha Martinez, Eric em1 Roger Blakely RN RN Jef Oconnell RN RN ll1 Eloisa Love6
--- NOTE | 2024-07-30 15:32 | EDPHYS ---
Physician Documentation [facility] Name: Fany Meza Age: 54 yrs Sex: Female : 1970 Arrival Date: 07/30/2024 Time: 13:19 Bed 13 Private MD: ED Physician Nigel Knight HPI: 07/30 15:27 This 54 yrs old Female presents to ER via Ambulatory with complaints of Chest stephen Pain, Breathing Difficulty. 15:27 The patient or guardian reports chest pain that is located primarily in the anterior stephen chest wall, left. Onset: 2 day(s) ago. The pain does not radiate. Associated signs and symptoms: The patient has no apparent associated signs or symptoms. The chest pain is described as aching. Modifying factors: The symptoms are alleviated by nothing. the symptoms are aggravated by nothing. Severity of pain: At its worst the pain was very mild in the emergency department the pain has resolved. The patient has experienced similar episodes in the past, several times. Historical: - Allergies: 13:30 No Known Allergies; ll1 - PMHx: 13:30 cervical cancer; Gastroesophageal reflux disease; Hypertensive disorder; ll1 - PSHx: 13:30 section; neck; tubal ligation (neck); ll1 - Immunization history:: Adult Immunizations up to date. - Infectious Disease History:: Denies. - Social history:: Smoking status: Patient reports the use of cigarette tobacco products, smokes one-half pack cigarettes per day. - Family history:: not pertinent. ROS: 15:27 Constitutional: Negative for fever, chills, and weight loss, Eyes: Negative for injury, stephen pain, redness, and discharge, ENT: Negative for injury, pain, and discharge, Neck: Negative for injury, pain, and swelling, Respiratory: Negative for shortness of breath, cough, wheezing, and pleuritic chest pain, Abdomen/GI: Negative for abdominal pain, nausea, vomiting, diarrhea, and constipation, Back: Negative for injury and pain, : Negative for injury, bleeding, discharge, and swelling, MS/Extremity: Negative for injury and deformity, Skin: Negative for injury, rash, and discoloration, Neuro: Negative for headache, weakness, numbness, tingling, and seizure, Psych: Negative for depression, anxiety, suicide ideation, homicidal ideation, and hallucinations, Allergy/Immunology: Negative for hives, rash, and allergies, Endocrine: Negative for neck swelling, polydipsia, polyuria, polyphagia, and marked weight changes, Hematologic/Lymphatic: Negative for swollen nodes, abnormal bleeding, and unusual bruising, 15:27 Cardiovascular: Positive for chest pain, of the anterior aspect of left upper chest, Exam: 15:27 Constitutional: This is a well developed, well nourished patient who is awake, alert, stephen and in no acute distress. Head/Face: Normocephalic, atraumatic. Eyes: Pupils equal round and reactive to light, extra-ocular motions intact. Lids and lashes normal. Conjunctiva and sclera are non-icteric and not injected. Cornea within normal limits. Periorbital areas with no swelling, redness, or edema. ENT: Nares patent. No nasal discharge, no septal abnormalities noted. Tympanic membranes are normal and external auditory canals are clear. Oropharynx with no redness, swelling, or masses, exudates, or evidence of obstruction, uvula midline. Mucous membranes moist. Neck: Trachea midline, no thyromegaly or masses palpated, and no cervical lymphadenopathy. Supple, full range of motion without nuchal rigidity, or vertebral point tenderness. No Meningismus. Chest/axilla: Normal chest wall appearance and motion. Nontender with no deformity. No lesions are appreciated. Cardiovascular: Regular rate and rhythm with a normal S1 and S2. No gallops, murmurs, or rubs. Normal PMI, no JVD. No pulse deficits. Respiratory: Lungs have equal breath sounds bilaterally, clear to auscultation and percussion. No rales, rhonchi or wheezes noted. No increased work of breathing, no retractions or nasal flaring. Abdomen/GI: Soft, non-tender, with normal bowel sounds. No distension or tympany. No guarding or rebound. No evidence of tenderness throughout. Back: No spinal tenderness. No costovertebral tenderness. Full range of motion. Skin: Warm, dry with normal turgor. Normal color with no rashes, no lesions, and no evidence of cellulitis. MS/ Extremity: Pulses equal, no cyanosis. Neurovascular intact. Full, normal range of motion., bilateral aka Neuro: Awake and alert, GCS 15, oriented to person, place, time, and situation. Cranial nerves II-XII grossly intact. Motor strength 5/5 in all extremities. Sensory grossly intact. Cerebellar exam normal. Normal gait. Psych: Awake, alert, with orientation to person, place and time. Behavior, mood, and affect are within normal limits. 15:27 ECG was reviewed by the Attending Physician. Vital Signs: 13:31 BP 160 / 90; Pulse 73; Resp 16; Pulse Ox 100% ; Weight 76.2 kg; Height 5 ft. 4 in. ; ll1 Pain 6/10; 15:55 BP 147 / 85; Pulse 75; Resp 16; Pulse Ox 99% ; bp 13:31 Body Mass Index 28.84 (76.20 kg, 162.56 cm) ll1 13:31 Pain Scale: Adult ll1 MDM: 13:24 Medical Screening Exam initiated 07/30 13:25 Order name: CBC with Diff; Complete Time: 15:27 07/30 13:25 Order name: Comprehensive Metabolic Panel; Complete Time: 15:27 07/30 13:25 Order name: COVID-19 Ag + Flu A+B Ag; Complete Time: 15:27 07/30 13:29 Order name: Basic Metabolic Panel; Complete Time: 15:27 07/30 13:29 Order name: Magnesium; Complete Time: 15:27 07/30 13:29 Order name: NT PRO-BNP; Complete Time: 15:27 07/30 13:29 Order name: PT-INR; Complete Time: 15:27 07/30 13:29 Order name: Troponin HS; Complete Time: 15:27 07/30 13:30 Order name: D-Dimer; Complete Time: 15:27 07/30 13:25 Order name: Chest Pa And Lat (2 Views) XRAY; Complete Time: 15:27 07/30 13:29 Order name: EKG; Complete Time: 13:30 07/30 13:29 Order name: Cardiac monitoring; Complete Time: 14:02 07/30 13:29 Order name: EKG - Nurse/Tech; Complete Time: 13:43 07/30 13:29 Order name: IV Saline Lock; Complete Time: 14:02 07/30 13:29 Order name: Labs collected and sent; Complete Time: 14:07/30 13:29 Order name: O2 Per Protocol; Complete Time: 14:02 stephen 07/30 13:29 Order name: O2 Sat Monitoring; Complete Time: 14:02 stephen EC:27 Rate is 60 beats/min. Rhythm is regular. QRS [place] is Normal. IA interval is normal. QRS stephen interval is normal. QT interval is normal. No Q waves. T waves are Normal. No ST changes noted. Clinical impression: Normal ECG and No evidence of ischemia. Interpreted by me. Reviewed by me. Administered Medications: 14:01 Drug: Aspirin PO Chewable Tablet 324 mg PO once; 81 mg tablets x 4 Route: PO; bp 14:58 Follow up: Response: No adverse reaction bp 14:02 Drug: NS 0.9% IV 1000 ml IV at 1000 ml once; to be given as a bolus over 60 minutes bp Route: IV; Rate: 1000 ml; Site: right antecubital; 14:02 Drug: Acetaminophen PO 1000 mg PO once Route: PO; bp 14:59 Follow up: Response: No adverse reaction bp Disposition Summary: 07/30/24 15:32 Discharge Ordered Notes: Location: Home stephen Problem: new stephen Symptoms: have improved stephen Condition: Stable stephen Diagnosis - Chest pain, unspecified stephen - Tobacco abuse counseling stephen - Tobacco use stephen - Unspecified symptoms and signs involving the musculoskeletal system stephen Followup: stephen - With: Private Physician - When: 2 - 3 days - Reason: Recheck today's complaints, Continuance of care, Re-evaluation by your physician Followup: stephen - With: Dion Araujo MD - When: 2 - 3 days - Reason: Recheck today's complaints, Re-evaluation by your physician Discharge Instructions: - Discharge Summary Sheet stephen - Nonspecific Chest Pain, Adult stephen - Chest Wall Pain stephen - Musculoskeletal Pain stephen - Self-Destructive Behavior stephen - Steps to Quit Smoking stephen - Health Risks of Smoking stephen - Chest Wall Pain, Rhit-kz-Agum stephen - Nonspecific Chest Pain, Adult, [id number] stephen - Steps to Quit Smoking, [id number] stephen - Aspirin and Your Heart stephen Forms: - Medication Reconciliation Form stephen - Antibiotic Education stephen - Prescription Opioid Use stephen - Patient Portal Instructions stephen - Leadership Thank You Letter stephen Signatures: Dispatcher [employer] Nigel Matson MD MD cha Peltier, Brian, RN RN bp Jef Glover RN RN ll1 Corrections: (The following items were deleted from the chart) 13:54 13:25 Miscellaneous Lab Test+[id number].[id number] ordered. EDMS EDMS
[2024-07-30 16:41] VITALS: BP 147/85; O2SAT 99
--- NOTE | 2024-08-02 12:47 | EKG ---
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
== END 2024-07-30 15:56 | disposition home or self-care (01) ==
LOC: ER 13:19
DX: R07.89 Other chest pain (principal); R29.91 Unspecified symptoms and signs involving the musculoskeletal system; Z72.0 Tobacco use; Z71.6 Tobacco abuse counseling; Z11.52 Encounter for screening for COVID-19
CPT/HCPCS: 93005; 85025; 80048; 36415; 83735; 85610; 85379; 84484; 80053; 83880; 71046; 99284; 87428; J7030

== ENCOUNTER 2024-08-02 12:41 | Emergency (ER) | payer OTHER ==
[2024-08-02 13:28] LABS: Absolute Eosinophils 0.1 K/uL (0-0.5); Absolute Lymphocytes (CBC) 1.7 K/uL (0.7-4.9); Absolute Monocytes 0.7 K/uL (0.1-1.3); Absolute Neutrophil 6.2 K/uL (1.8-8.0); Basophils % 0.4 % (0-1.3); Eosinophils % 0.7 % (0-4.4); Hematocrit 42.2 % (36.0-45.0); Hemoglobin 14.4 g/dL (12.0-15.0); Lymphocytes % 19.2 % (15.3-44.8); MCH 31.2 pg (27.0-35.0); MCHC 34.2 g/dL (32.0-36.0); MCV 91.2 fL (80-100); MPV 7.9 fL (7.6-11.3); Monocytes % 8.6 % (3.3-12.3); Neutrophils % 71.1 % (41.7-73.7); Platelets 251 thou/uL (152-406); RBC Red Blood Cell Count 4.63 M/uL (3.86-4.86); Red Cell Distribution Width 15.2 % (12.1-15.2)
[2024-08-02 13:48] LABS: Albumin 4.5 g/dL (3.4-5.0); Albumin/Globulin Ratio 1.3 (1.1-1.8); Bilirubin Total 0.4 mg/dL (0.2-1.0); Globulin 3.6 g/dL (2.3-3.5); Protein, Total 8.1 g/dL (6.4-8.2)
--- NOTE | 2024-08-02 14:02 | RAD REPORT ---
EXAM: Soft Tissue Neck W/Contr INDICATION: neck pain and fb sensation vs swelling TECHNIQUE: Helical CT examination of the neck with IV contrast. Sagittal and coronal reformations wer e generated. This exam was performed according to our departmental dose-optimization program, which includes automated exposure control, adjustment of the mA and/or kV according to patient size and/or use of iterative reconstruction technique. COMPARISON: 06/24/2022 CT neck, CT cervical spine 05/01/2024 FINDINGS: Aerodigestive Tract Structures: Nasopharynx, oropharynx, oral cavity, larynx and hypopharynx are norm al. Lymph Nodes: No pathologic appearing cervical lymph nodes. Parotid Glands: Normal Submandibular Glands: Normal Thyroid Gland: Normal Included Intracranial Structures: Normal Included Orbits: Normal Paranasal Sinuses: Predominantly clear Tympanomastoid Cavities: Normal Vascular Structures: Similar dilated right extrarenal jugular vein. Osseous Structures: Status post posterior kendal and pedicle screw fusion at C3-C6 and anterior fusion extending from C4 through T1. Changes of posterior decompression extending from C3 through C6. There is very little bony purchase with some screw lucency present at the C3 screws which is similar to prior. Included Lung Apices: Normal IMPRESSION: No acute soft tissue abnormality within the neck. No mass or foreign body to explain reported foreign body sensation. Postoperative changes in the cervical spine from anterior and posterior fusion
--- NOTE | 2024-08-02 14:06 | ER ---
Nurse's Notes [facility] Name: Fany Meza Age: 54 yrs Sex: Female : 1970 Arrival Date: 08/02/2024 Time: 12:41 Bed 20 Private MD: Diagnosis: Foreign body sensation, esophageal stricture Presentation: 08/02 12:48 Chief complaint: Patient states: feels like a huge knot in her esophagus, I have had to iw have my esophagus stretched before, my throat is not sore but there is s knot , has not eaten today because she can't swallow. Coronavirus screen: At this time, the client does not indicate any symptoms associated with coronavirus-19. Ebola Screen: No symptoms or risks identified at this time. Initial Sepsis Screen: Does the patient meet any 2 criteria? No. Patient's initial sepsis screen is negative. Does the patient have a suspected source of infection? No. Patient's initial sepsis screen is negative. Risk Assessment: Do you want to hurt yourself or someone else? Patient reports no desire to harm self or others. Onset of symptoms was August 02, 2024. 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 - Infectious Disease History:: Denies. - Social history:: Smoking status: Patient reports the use of cigarette tobacco products, smokes one-half pack cigarettes per day. Screenin:22 [facility] ED Fall Risk Assessment (Adult) History of falling in the last 3 months, kc6 including since admission No falls in past 3 months (0 pts) Confusion or Disorientation No (0 pts) Intoxicated or Sedated No (0 pts) Impaired Gait No (0 pts) Mobility Assist Device Used No (0 pt) Altered Elimination No (0 pt) Score/Fall Risk Level 0 - 2 = Low Risk Oriented to surroundings, Maintained a safe environment. Abuse screen: Denies threats or abuse. Denies injuries from another. Nutritional screening: No deficits noted. Tuberculosis screening: No symptoms or risk factors identified. Assessment: 13:23 General: Appears in no apparent distress. comfortable, well groomed, well developed, kc6 Behavior is calm, cooperative, appropriate for age. Pain: Complains of pain in suprasternal notch. Neuro: Level of Consciousness is awake, alert, obeys commands, Oriented to person, place, time, situation, Appropriate for age. Cardiovascular: Capillary refill < 3 seconds. Respiratory: Airway is patent Trachea midline Respiratory effort is even, unlabored, Respiratory pattern is regular, symmetrical, Denies cough, shortness of breath. GI: No signs and/or symptoms were reported involving the gastrointestinal system. : No signs and/or symptoms were reported regarding the genitourinary system. EENT: Throat is clear bilaterally with gag reflex present, Reports difficulty swallowing pain when swallowing. Derm: No signs and/or symptoms reported regarding the dermatologic system. Skin is intact, is healthy with good turgor, Skin is pink, warm \T\ dry. Musculoskeletal: No signs and/or symptoms reported regarding the musculoskeletal system. Circulation, motion, and sensation intact. Range of motion: intact in all extremities. 14:16 Reassessment: Patient appears in no apparent distress at this time. Patient and/or kj2 family updated on plan of care and expected duration. Pain level reassessed. Patient is alert, oriented x 3, equal unlabored respirations, skin warm/dry/pink. Vital Signs: 12:48 BP 140 / 95; Pulse 91; Resp 18; Temp 98.7; Pulse Ox 98% on R/A; Weight 74.39 kg; Height iw 5 ft. 4 in. ; 14:17 BP 138 / 88; Pulse 90; Resp 18; Temp 98; Pulse Ox 100% ; kj2 12:48 Body Mass Index 28.15 (74.39 kg, 162.56 cm) iw ED Course: 12:43 Patient arrived in ED. al6 12:49 Tameka Banegas MD is Attending Physician. sp3 12:50 Triage completed. iw 12:51 Arm band placed on. iw 12:52 Yanci Zuñiga RN is Primary Nurse. kc6 13:22 Patient has correct armband on for positive identification. Bed in low position. Call kc6 light in reach. Side rails up X 1. Pulse ox on. NIBP on. Door closed. Noise minimized. Lights dimmed. Pillow given. Verbal reassurance given. 13:22 Initial lab(s) drawn, by me, sent to lab. Inserted saline lock: 20 gauge in right kc6 antecubital area, using aseptic technique. Blood collected. Flushed with 10 mL NS. Patient maintains SpO2 saturation greater than 95% on room air. 13:37 CT Soft Tissue Neck W/contr In Process Unspecified. EDMS 14:17 No provider procedures requiring assistance completed. kj2 14:18 Provided Education on: discharge instructions. kj2 14:18 IV discontinued, intact, bleeding controlled, No redness/swelling at site. Pressure kj2 dressing applied. Administered Medications: No medications were administered Medication: 14:17 VIS not applicable for this client. kj2 Outcome: 14:05 Discharge ordered by . sp3 14:18 Discharged to home ambulatory, kj2 14:18 Condition: stable 14:18 Discharge instructions given to patient, Instructed on discharge instructions, follow up and referral plans. Demonstrated understanding of instructions, follow-up care, 14:21 Patient left the ED. kj2 Signatures: Dispatcher [employer] EDMS Cherelle Moreau, RN SCOTTY iw Tameka Banegas MD MD sp3 Yanci Zuñiga RN RN kc6 Rossana Maya RN RN kj2 Eloisa Love6
--- NOTE | 2024-08-02 14:06 | EDPHYS ---
Physician Documentation [facility] Name: Fany Meza Age: 54 yrs Sex: Female : 1970 Arrival Date: 08/02/2024 Time: 12:41 Bed 20 Private MD: ED Physician Tameka Banegas HPI: 08/02 13:19 This 54 yrs old Female presents to ER via Ambulatory with complaints of throat problem. sp3 13:19 54-year-old female with history of cervical cancer, esophageal reflux, prior esophageal sp3 stricture now presents to the ED with chief complaint difficulty swallowing and feelings of deep throat swelling. She denies any pharyngeal pain or symptoms of upper respiratory infection. She feels a swelling sensation is deeper. She states that when she eats or drinks she "has to spit some of the back up". She denies any difficulty breathing, chest pain, abdominal pain, vomit, diarrhea, melena, or any other signs or symptoms on ROS at this time.. 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 - Infectious Disease History:: Denies. - Social history:: Smoking status: Patient reports the use of cigarette tobacco products, smokes one-half pack cigarettes per day. ROS: 13:22 Constitutional: Negative for fever, chills, and weight loss, Eyes: Negative for injury, sp3 pain, redness, and discharge, ENT: Negative for injury, pain, and discharge, Cardiovascular: Negative for chest pain, palpitations, and edema, Respiratory: Negative for shortness of breath, cough, wheezing, and pleuritic chest pain, Abdomen/GI: Negative for abdominal pain, nausea, vomiting, diarrhea, and constipation, Back: Negative for injury and pain, MS/Extremity: Negative for injury and deformity, Skin: Negative for injury, rash, and discoloration, Neuro: Negative for headache, weakness, numbness, tingling, and seizure, Psych: Negative for depression, anxiety, suicide ideation, homicidal ideation, and hallucinations, Allergy/Immunology: Negative for hives, rash, and allergies, Endocrine: Negative for neck swelling, polydipsia, polyuria, polyphagia, and marked weight changes, 13:22 All other systems are negative, Exam: 13:25 Constitutional: This is a well developed, well nourished patient who is awake, alert, sp3 and in no acute distress. Head/Face: Normocephalic, atraumatic. Eyes: Pupils equal round and reactive to light, extra-ocular motions intact. Lids and lashes normal. Conjunctiva and sclera are non-icteric and not injected. Cornea within normal limits. Periorbital areas with no swelling, redness, or edema. ENT: Nares patent. No nasal discharge, no septal abnormalities noted. External auditory canals are clear. Oropharynx with no redness, swelling, or masses, exudates, or evidence of obstruction, uvula midline. Mucous membranes moist. Neck: Trachea midline, no thyromegaly or masses palpated, and no cervical lymphadenopathy. Supple, full range of motion without nuchal rigidity, or vertebral point tenderness. No Meningismus. Chest/axilla: Normal chest wall appearance and motion. Nontender with no deformity. No lesions are appreciated. Cardiovascular: Regular rate and rhythm with a normal S1 and S2. No gallops, murmurs, or rubs. Normal PMI, no JVD. No pulse deficits. Respiratory: Lungs have equal breath sounds bilaterally, clear to auscultation and percussion. No rales, rhonchi or wheezes noted. No increased work of breathing, no retractions or nasal flaring. Abdomen/GI: Soft, non-tender, with normal bowel sounds. No distension or tympany. No guarding or rebound. No evidence of tenderness throughout. Back: No spinal tenderness. No costovertebral tenderness. Full range of motion. Skin: Warm, dry with normal turgor. Normal color with no rashes, no lesions, and no evidence of cellulitis. MS/ Extremity: Pulses equal, no cyanosis. Neurovascular intact. Full, normal range of motion. Neuro: Awake and alert, GCS 15, oriented to person, place, time, and situation. Cranial nerves II-XII grossly intact. Motor strength 5/5 in all extremities. Sensory grossly intact. Cerebellar exam normal. Normal gait. Vital Signs: 12:48 BP 140 / 95; Pulse 91; Resp 18; Temp 98.7; Pulse Ox 98% on R/A; Weight 74.39 kg; Height iw 5 ft. 4 in. ; 14:17 BP 138 / 88; Pulse 90; Resp 18; Temp 98; Pulse Ox 100% ; kj2 12:48 Body Mass Index 28.15 (74.39 kg, 162.56 cm) iw MDM: 12:55 Medical Screening Exam initiated sp3 13:25 Data reviewed: vital signs, nurses notes, lab test result(s), radiologic studies. ED sp3 course: 54-year-old female with history of esophageal stricture now with throat swelling sensation. Will obtain CT scan of the soft tissue neck with IV contrast and general labs. If workup negative we will follow her up to GI which she already has established. Differential diagnosis includes esophageal stricture, other cervical swelling, foreign body, among others. Disposition pending workup and patient course.. 14:05 ED course: CT and labs all negative. Will reassure patient have her follow-up with GI.. sp3 08/02 13:05 Order name: CBC with Diff; Complete Time: 13:51 sp3 08/02 13:05 Order name: CMP; Complete Time: 13:51 sp3 08/02 13:05 Order name: CT Soft Tissue Neck W/contr; Complete Time: 14:04 sp3 08/02 13:05 Order name: IV Saline Lock; Complete Time: 13:22 sp3 08/02 13:05 Order name: Labs collected and sent; Complete Time: 13:22 sp3 Administered Medications: No medications were administered Disposition Summary: 08/02/24 14:05 Discharge Ordered Notes: Location: Home sp3 Condition: Stable sp3 Diagnosis - Foreign body sensation, esophageal stricture sp3 Followup: sp3 - With: Private Physician - When: Upon discharge from the Emergency Department - Reason: Continuance of care Discharge Instructions: - Discharge Summary Sheet sp3 - Esophageal Stricture sp3 Forms: - Medication Reconciliation Form sp3 - Antibiotic Education sp3 - Prescription Opioid Use sp3 - Patient Portal Instructions sp3 - Leadership Thank You Letter sp3 Signatures: Dispatcher [employer] Cherelle Ontiveros RN RN iw Tameka Banegas MD MD sp3 Corrections: (The following items were deleted from the chart) 13:05 13:05 CBC+H.LAB.BRZ ordered. EDMS EDMS 13:05 13:05 COMPREHENSIVE METABOLIC PANEL+C.LAB.BRZ ordered. EDMS EDMS
[2024-08-02 14:59] VITALS: BP 138/88; TEMP 98; O2SAT 100
== END 2024-08-02 14:21 | disposition home or self-care (01) ==
LOC: ER 12:41
DX: K22.2 Esophageal obstruction (principal); F17.210 Nicotine dependence, cigarettes, uncomplicated
CPT/HCPCS: 85025; 36415; 80053; 70491; 99284; Q9967

== ENCOUNTER 2024-08-23 18:46 | Emergency (ER) | payer OTHER ==
[2024-08-23] MEDS ORDERED: NA CHLORIDE 0.9% 1,000 ML ONE (20:01)
[2024-08-23] MEDS ORDERED: ONDANSETRON 4 MG/2 ML VIAL ONE (20:01)
[2024-08-23] MEDS ORDERED: KETOROLAC 30 MG/ML INJ ONE (20:01)
[2024-08-23 20:28] LABS: Absolute Eosinophils 0.1 K/uL (0-0.5); Absolute Monocytes 0.8 K/uL (0.1-1.3); Absolute Neutrophil 4.4 K/uL (1.8-8.0); Basophils % 0.5 % (0-1.3); Eosinophils % 0.8 % (0-4.4); Hematocrit 41.1 % (36.0-45.0); Hemoglobin 14.3 g/dL (12.0-15.0); MCH 31.4 pg (27.0-35.0); MCHC 34.8 g/dL (32.0-36.0); MCV 90.1 fL (80-100); MPV 7.6 fL (7.6-11.3); Monocytes % 10.7 % (3.3-12.3); Nucleated Red Blood Cells % 0.1 % (0-0); Platelets 277 thou/uL (152-406); RBC Red Blood Cell Count 4.57 M/uL (3.86-4.86); Red Cell Distribution Width 14.9 % (12.1-15.2)
[2024-08-23 20:43] LABS: Specific Gravity 1.028 (1.005-1.030); Sqamous Epithelial <5 /HPF (None Seen); Urine Bacteria None Seen /HPF (<20); Urine Bilirubin NEGATIVE (Negative); Urine Blood Negative (Negative); Urine Clarity Turbid (Clear); Urine Color Light-Yellow (Yellow); Urine Crystals Unidentified Few /HPF (None Seen); Urine Culture Reflex Order REFLEXED; Urine Glucose NEGATIVE (Negative); Urine Ketones NEGATIVE (Negative); Urine Microscopic Reflex YN ORDER UMIC; Urine Nitrite NEGATIVE (Negative); Urine Protein NEGATIVE (Negative); Urine Urobilinogen Normal (Normal); Urine Yeast (Budding) Trace /HPF (None Seen); Urine pH 6.5 (5.0-7.0)
[2024-08-23 20:49] LABS: Albumin 4.1 g/dL (3.4-5.0); Albumin/Globulin Ratio 1.1 (1.1-1.8); Bilirubin Total 0.2 mg/dL (0.2-1.0); Globulin 3.8 g/dL (2.3-3.5); Protein, Total 7.9 g/dL (6.4-8.2)
--- NOTE | 2024-08-23 22:10 | EDPHYS ---
Physician Documentation [facility] Name: Fany Meza Age: 54 yrs Sex: Female : 1970 Arrival Date: 08/23/2024 Time: 18:46 Bed DX3 Private MD: ED Physician Tameka Banegas HPI: 08/23 22:02 This 54 yrs old Female presents to ER via Ambulatory with complaints of Head PaiN, Neck sp3 Pain. 22:02 . sp3 22:05 54-year-old female with history of multiple cervical surgeries in fusions with hardware sp3 in place now presents ED with upper neck and posterior occipital headache. Symptoms been going on for several weeks and today got worse and so she seeks evaluation. Other medical history includes prior cervical cancer, GERD, hypertension. Patient was initially seen by Dr. Knight who ordered CT scan of the head as well as angiograms of the neck and brain. Patient denies any trauma, fever, facial pain, chest pain, mid and lower back pain, abdominal pain, vomit, diarrhea, syncope, neurological deficits, or any other signs or symptoms on ROS at this time.. 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 - Infectious Disease History:: Denies. - Social history:: Smoking status: Patient reports the use of cigarette tobacco products, smokes one-half pack cigarettes per day. ROS: 22:06 Constitutional: Negative for fever, chills, and weight loss, Eyes: Negative for injury, sp3 pain, redness, and discharge, ENT: Negative for injury, pain, and discharge, Neck: Negative for injury, pain, and swelling, Cardiovascular: Negative for chest pain, palpitations, and edema, Respiratory: Negative for shortness of breath, cough, wheezing, and pleuritic chest pain, Abdomen/GI: Negative for abdominal pain, nausea, vomiting, diarrhea, and constipation, Back: Negative for injury and pain, MS/Extremity: Negative for injury and deformity, Skin: Negative for injury, rash, and discoloration, Psych: Negative for depression, anxiety, suicide ideation, homicidal ideation, and hallucinations, Allergy/Immunology: Negative for hives, rash, and allergies, Endocrine: Negative for neck swelling, polydipsia, polyuria, polyphagia, and marked weight changes, 22:06 All other systems are negative, Exam: 22:06 Constitutional: This is a well developed, well nourished patient who is awake, alert, sp3 and in no acute distress. Head/Face: Normocephalic, atraumatic. Eyes: Pupils equal round and reactive to light, extra-ocular motions intact. Lids and lashes normal. Conjunctiva and sclera are non-icteric and not injected. Cornea within normal limits. Periorbital areas with no swelling, redness, or edema. ENT: Nares patent. No nasal discharge, no septal abnormalities noted. External auditory canals are clear. Oropharynx with no redness, swelling, or masses, exudates, or evidence of obstruction, uvula midline. Mucous membranes moist. Chest/axilla: Normal chest wall appearance and motion. Nontender with no deformity. No lesions are appreciated. Cardiovascular: Regular rate and rhythm with a normal S1 and S2. No gallops, murmurs, or rubs. Normal PMI, no JVD. No pulse deficits. Respiratory: Lungs have equal breath sounds bilaterally, clear to auscultation and percussion. No rales, rhonchi or wheezes noted. No increased work of breathing, no retractions or nasal flaring. Abdomen/GI: Soft, non-tender, with normal bowel sounds. No distension or tympany. No guarding or rebound. No evidence of tenderness throughout. Back: No spinal tenderness. No costovertebral tenderness. Full range of motion. Skin: Warm, dry with normal turgor. Normal color with no rashes, no lesions, and no evidence of cellulitis. MS/ Extremity: Pulses equal, no cyanosis. Neurovascular intact. Full, normal range of motion. Neuro: Awake and alert, GCS 15, oriented to person, place, time, and situation. Cranial nerves II-XII grossly intact. Motor strength 5/5 in all extremities. Sensory grossly intact. Cerebellar exam normal. Normal gait. Psych: Awake, alert, with orientation to person, place and time. Behavior, mood, and affect are within normal limits. 22:06 Neck: Mild pain on flexion. Patient last postoccipital headache., Vital Signs: 19:03 BP 150 / 93; Pulse 75; Resp 17; Temp 97.9; Pulse Ox 98% ; Weight 77.11 kg; Height 5 ft. me1 4 in. ; Pain 7/10; 22:25 BP 142 / 65; Pulse 61; Resp 16 S; Temp 97.6(O); Pulse Ox 99% on R/A; lg3 19:03 Body Mass Index 29.18 (77.11 kg, 162.56 cm) me1 19:03 Pain Scale: Adult me1 MDM: 19:12 Medical Screening Exam initiated stephen 22:08 Data reviewed: vital signs, nurses notes, lab test result(s), radiologic studies. ED sp3 course: 54-year-old female with posterior headache. Dr. Knight had ordered CT scan of the head as well as angiograms of the neck and brain. Labs within normal limits. Patient states she has to get to work tomorrow morning is asking to be discharged if we could call her with results. I took a look at the images and I do not see any acute findings on my review. We have a good working phone number and patient wishes to be discharged home at this time. We will call her for any findings that need intervention. Patient received ketorolac which has somewhat improved her pain. Differential diagnosis includes idiopathic headache, musculoskeletal headache, tension headache, intracranial pathology, among others.. 08/23 19:15 Order name: CBC with Diff; Complete Time: 21:04 [facility] 08/23 19:15 Order name: CMP; Complete Time: 21:04 [facility] 08/23 19:15 Order name: UA Rfx Elmer Cult if indicated; Complete Time: 21:04 [facility] 08/23 20:55 Order name: Urine Culture [facility] 08/23 19:15 Order name: CT Head Brain wo Cont [facility] 08/23 19:15 Order name: CT Head Angio [facility] 08/23 19:15 Order name: CT Neck Angio [facility] Administered Medications: 20:34 Drug: NS 0.9% IV 1000 ml IV at 1 bolus Per protocol; to be given as a bolus over 60 lg3 minutes Route: IV; Rate: 1 bolus; Site: right antecubital; 22:26 Follow up: Response: No adverse reaction; IV Status: Completed infusion; IV Intake: lg3 1000ml 20:34 Drug: Ketorolac IVP 15 mg IVP once Route: IVP; Site: right antecubital; lg3 22:13 Follow up: Response: No adverse reaction; Marked relief of symptoms lg3 20:34 Drug: Ondansetron IVP 4 mg IVP once; over 2 minutes Route: IVP; Site: right antecubital;lg3 22:13 Follow up: Response: No adverse reaction lg3 Disposition Summary: 08/23/24 22:09 Discharge Ordered Notes: Location: Home sp3 Condition: Stable sp3 Diagnosis - Headache, informed discharge sp3 Followup: sp3 - With: Private Physician - When: Upon discharge from the Emergency Department - Reason: Continuance of care Discharge Instructions: - Discharge Summary Sheet sp3 - General Headache Without Cause sp3 Forms: - Medication Reconciliation Form sp3 - Antibiotic Education sp3 - Prescription Opioid Use sp3 - Patient Portal Instructions sp3 - Leadership Thank You Letter sp3 Signatures: Dispatcher [employer] EDNigel Metz MD MD cha Able, Lacie, RN RN lg3 Tameka Banegas MD MD sp3 Jaz Ballard, SCOTTY RN me1 Corrections: (The following items were deleted from the chart) 19:15 19:15 Head Angio+CT.RAD.BRZ ordered. EDMS EDMS 19:15 19:15 Neck Angio+CT.RAD.BRZ ordered. EDMS EDMS
--- NOTE | 2024-08-23 22:10 | ER ---
Nurse's Notes [facility] Name: Fany Meza Age: 54 yrs Sex: Female : 1970 Arrival Date: 08/23/2024 Time: 18:46 Bed DX3 Private MD: Diagnosis: Headache, informed discharge Presentation: 08/23 19:03 Chief complaint: Patient states: c/o posterior neck pain that radiates up the back of me1 her head, started a few days ago and has worsened. Saw Dr Ko today and he called in hydrocodone. Took one and her headache is worse after taking the pain medicine. Pain 10/19. Coronavirus screen: Vaccine status: Patient reports receiving the 2nd dose of the covid vaccine. Ebola Screen: No symptoms or risks identified at this time. Initial Sepsis Screen: Does the patient meet any 2 criteria? No. Patient's initial sepsis screen is negative. Does the patient have a suspected source of infection? No. Patient's initial sepsis screen is negative. Risk Assessment: Do you want to hurt yourself or someone else? Patient reports no desire to harm self or others. Onset of symptoms is unknown. 19:03 Method Of Arrival: Ambulatory 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 - Infectious Disease History:: Denies. - Social history:: Smoking status: Patient reports the use of cigarette tobacco products, smokes one-half pack cigarettes per day. Screenin:45 [facility] ED Fall Risk Assessment (Adult) History of falling in the last 3 months, lg3 including since admission No falls in past 3 months (0 pts) Confusion or Disorientation No (0 pts) Intoxicated or Sedated No (0 pts) Impaired Gait No (0 pts) Mobility Assist Device Used No (0 pt) Altered Elimination No (0 pt) Score/Fall Risk Level 0 - 2 = Low Risk Oriented to surroundings, Maintained a safe environment, Educated pt \T\ family on fall prevention, incl call for assistance when getting out of bed, Assessed \T\ reinforced patient's understanding of fall precautions. Abuse screen: Denies threats or abuse. Denies injuries from another. Nutritional screening: No deficits noted. Tuberculosis screening: No symptoms or risk factors identified. Assessment: 19:45 General: Appears in no apparent distress. uncomfortable, Behavior is calm, cooperative. lg3 Pain: Complains of pain in back of head and back of neck Pain currently is 7 out of 10 on a pain scale. Neuro: No deficits noted. Meade Agitation-Sedation Scale (RASS): 0 - Alert and Calm Level of Consciousness is awake, alert, obeys commands, Oriented to person, place, time, situation. Cardiovascular: No deficits noted. Denies chest pain, shortness of breath, Capillary refill < 3 seconds Clubbing of nail beds is absent JVD is absent Patient's skin is warm and dry. Respiratory: No deficits noted. Airway is patent Respiratory effort is even, unlabored, Respiratory pattern is regular, symmetrical. GI: No deficits noted. No signs and/or symptoms were reported involving the gastrointestinal system. : No signs and/or symptoms were reported regarding the genitourinary system. EENT: No deficits noted. No signs and/or symptoms were reported regarding the EENT system. Derm: No deficits noted. No signs and/or symptoms reported regarding the dermatologic system. Skin is intact, is healthy with good turgor, Skin is dry, Skin is normal, Skin temperature is warm. Musculoskeletal: No deficits noted. Circulation, motion, and sensation intact. Range of motion: intact in all extremities. 22:13 Reassessment: Patient appears in no apparent distress at this time. No changes from lg3 previously documented assessment. Patient and/or family updated on plan of care and expected duration. Pain level reassessed. Patient is alert, oriented x 3, equal unlabored respirations, skin warm/dry/pink. Patient states feeling better. Patient states symptoms have improved. Vital Signs: 19:03 BP 150 / 93; Pulse 75; Resp 17; Temp 97.9; Pulse Ox 98% ; Weight 77.11 kg; Height 5 ft. me1 4 in. ; Pain 7/10; 22:25 BP 142 / 65; Pulse 61; Resp 16 S; Temp 97.6(O); Pulse Ox 99% on R/A; lg3 19:03 Body Mass Index 29.18 (77.11 kg, 162.56 cm) me1 19:03 Pain Scale: Adult in1 ED Course: 18:49 Patient arrived in ED. cj3 19:06 Triage completed. me1 19:06 Arm band placed on Patient placed in waiting room. me1 19:12 Nigel Knight MD is Attending Physician. stephen 19:17 Radiology exam delayed due to lab results not completed at this time. (BUN/Creatinine) jc4 IV insertion attempt and/or patient not having appropriate IV at this time. 19:45 Patient has correct armband on for positive identification. lg3 20:01 Attending Physician role handed off by Nigel Knight MD sp3 20:01 Tameka Banegas MD is Attending Physician. sp3 20:22 Radiology exam delayed due to lab results not completed at this time. (BUN/Creatinine) jc4 IV insertion attempt and/or patient not having appropriate IV at this time. 20:34 Inserted saline lock: 22 gauge in right antecubital area, using aseptic technique. lg3 Blood collected. Flushed with 10 mL NS. 20:45 Initial lab(s) drawn, by in, sent to lab. Urine collected: clean catch specimen, clear. vk 21:21 CT Head Brain wo Cont In Process Unspecified. EDMS 21:21 CT Head Angio In Process Unspecified. EDMS 21:21 CT Neck Angio In Process Unspecified. EDMS 22:25 No provider procedures requiring assistance completed. IV discontinued, intact, lg3 bleeding controlled, No redness/swelling at site. Pressure dressing applied. Administered Medications: 20:34 Drug: NS 0.9% IV 1000 ml IV at 1 bolus Per protocol; to be given as a bolus over 60 lg3 minutes Route: IV; Rate: 1 bolus; Site: right antecubital; 22:26 Follow up: Response: No adverse reaction; IV Status: Completed infusion; IV Intake: lg3 1000ml 20:34 Drug: Ketorolac IVP 15 mg IVP once Route: IVP; Site: right antecubital; lg3 22:13 Follow up: Response: No adverse reaction; Marked relief of symptoms lg3 20:34 Drug: Ondansetron IVP 4 mg IVP once; over 2 minutes Route: IVP; Site: right antecubital;lg3 22:13 Follow up: Response: No adverse reaction lg3 Medication: 19:45 VIS not applicable for this client. lg3 Intake: 22:26 IV: 1000ml; Total: 1000ml. lg3 Outcome: 22:09 Discharge ordered by . sp3 22:25 Discharged to home ambulatory, lg3 22:25 Condition: stable 22:25 Discharge instructions given to patient, Instructed on discharge instructions, follow up and referral plans. Demonstrated understanding of instructions, follow-up care, : Patient left the ED. lg3 Signatures: Dispatcher [employer] EDNigel Metz MD MD cha Able, Lacie RN RN lg3 Tameka Banegas MD MD sp3 Jaz Ballard, SCOTTY RN me1 Marj Estrada Justin jcKaila Boyle cj3
--- NOTE | 2024-08-23 22:20 | RAD REPORT ---
EXAMINATION: CT Neck Angio CLINICAL INDICATION: Female, 54 years old. [facility] MAIN PAIN Bed Name: [id number] TECHNIQUE: Axial CT images were obtained from the aortic arch to the skull base after intravenous con trast utilizing angiographic protocol. Multiplanar reformats, as well as 3D post-processing (maximum intensity projection images, volume rendered images and/or shaded surface rendered images) w ere generated and reviewed. One or more of the following dose reduction techniques were used: Automated exposure control, adjustment of the mA and/or kV according to patient size, and/or iterativ e reconstruction. Unless otherwise specified, incidental findings do not require dedicated imaging follow-up. COMPARISON: MRI brain 02/18/2023 FINDINGS: AORTA: The imaged aortic arch is normal. Normal three-vessel configuration of the arch. CCA: No artifact The common carotid arteries are patent and normal in caliber. ICA/ECA: Bilateral internal and external carotid arteries are patent. There is no significant interna l carotid artery stenosis. Mild calcific atherosclerotic plaque along the carotid bulbs. VERTEBRAL: The cervical vertebral arteries are patent to the skull base. Vertebral arteries are codom inant. SOFT TISSUE: No significant neck soft tissue abnormalities. The visualized lung apices are clear. 3D images confirm these findings. IMPRESSION: No significant flow abnormality of the neck vessels is identified. NASCET criteria used to quantify ICA stenosis, with the following grading scheme: Mild 0-49% stenosis Moderate 50-69% stenosis Severe 70-99% stenosis Reference: [place] Symptomatic Carotid Endarterectomy Trial Collaborators; Mahsa KERN, Nely DW, Henny RB, et al. Beneficial effect of carotid endarterectomy in symptomatic patients with high-grade carotid stenosis. N Engl J Med. 1990Nov 24;325(7):445-53.
--- NOTE | 2024-08-23 22:21 | RAD REPORT ---
EXAM: CT Head Brain Wo Cont HISTORY: HEADACHE COMPARISON: MRI brain 02/18/2023 TECHNIQUE: Multiple contiguous axial images were obtained for a CT of the brain without contrast. Sag ittal and coronal reformats were performed. One or more of the following dose reduction techniques were used: Automated exposure control, adjus tment of the mA and kV according to patient size, and iterative reconstruction. Unless otherwise specified, incidental findings do not require dedicated imaging follow-up. FINDINGS: No evidence of hydrocephalus, intracranial hemorrhage, or extra-axial fluid collection. The brain is normal in morphology. Stable degree of tonsillar descent, measuring up to 6 mm, again suggestive of Chiari I malformation. The calvarium is intact. The visualized paranasal sinuses and mastoid air cells are essentially clear . IMPRESSION: No evidence of acute intracranial abnormality.
--- NOTE | 2024-08-23 22:25 | RAD REPORT ---
EXAMINATION: CTA HEAD CLINICAL INDICATION: Female, 54 years old. HEADACHE TECHNIQUE: Axial CT images were obtained through the head after intravenous contrast utilizing angiog raphic protocol with 3D post-processing (maximum intensity projection images, volume rendered images and/or shaded surface rendered images). One or more of the following dose reduction technique s were used: Automated exposure control, adjustment of the mA and/or kV according to patient size, and/or iterative reconstruction. Unless otherwise specified, incidental findings do not require dedic ated imaging follow-up. COMPARISON: No prior exam. FINDINGS: ICA: The petrous, cavernous, and supraclinoid segments of the bilateral internal carotid arteries are normal. JAY: Anterior cerebral arteries are normal bilaterally. The anterior communicating artery is patent. MCA: Middle cerebral arteries are normal bilaterally. BANBURY MILL OPERATOR: Posterior cerebral arteries are normal bilaterally. Vertebrobasilar: The vertebral arteries are patent. The basilar artery is normal in appearance. 3D images confirm these findings. IMPRESSION: No evidence of large vessel occlusion or significant stenosis.
[2024-08-23 23:04] VITALS: BP 142/65; TEMP 97.6; O2SAT 99
== END 2024-08-23 22:26 | disposition home or self-care (01) ==
LOC: ER 18:46
DX: R51.9 Headache, unspecified (principal); M54.2 Cervicalgia; Z96.7 Presence of other bone and tendon implants; Z98.1 Arthrodesis status; F17.210 Nicotine dependence, cigarettes, uncomplicated
CPT/HCPCS: 87088; 85025; 81001; 87086; 36415; 80053; 70450; 70496; 70498; Q9967; J2405; J7030; 87077; 87186; 96361; 96374; 96375; 99284

== ENCOUNTER 2024-12-04 15:47 | Emergency (ER) | payer OTHER ==
[2024-12-04] MEDS ORDERED: HYDROCODONE/APAP 7.5/325 MG TAB ONE (16:16)
--- NOTE | 2024-12-04 17:07 | RAD REPORT ---
EXAMINATION: XR LEFT SHOULDER CLINICAL INDICATION: Female, 54 years old. PAIN TECHNIQUE: Internal and external AP view radiograph of the left shoulder were obtained. COMPARISON: No prior exam. FINDINGS: No evidence of fracture or dislocation. Normal alignment. No evidence of arthropathy or oth er focal bone lesion. Soft tissues are unremarkable. IMPRESSION: No acute or significant abnormalities.
--- NOTE | 2024-12-04 17:22 | EDPHYS ---
Physician Documentation [facility] Name: Fany Meza Age: 54 yrs Sex: Female : 1970 Arrival Date: 12/04/2024 Time: 15:47 Bed 15 Private MD: ED Physician Chris Grimes HPI: 12/04 16:16 This 54 yrs old Female presents to ER via Ambulatory with complaints of Shoulder Pain - sb4 left. 16:16 Patient reports left shoulder pain since waking this morning. States that she was doing sb4 a lot of physical labor yesterday, moving tree branches and then went swimming later on. States that it did not hurt before she went to bed, but she did sleep on that side and she woke up with having a lot of pain. States that her range of motion is restricted. The pain begins in her anterior left shoulder and radiates down her arm. Denies any numbness or tingling. Denies any neck pain. 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 - Infectious Disease History:: Denies. - Social history:: Smoking status: Patient reports the use of cigarette tobacco products, smokes one-half pack cigarettes per day. ROS: 16:16 Constitutional: Negative for fever, chills, and weight loss, sb4 16:16 MS/extremity: Positive for decreased range of motion, pain, of the left shoulder, 16:16 All other systems are negative, Exam: 16:16 Constitutional: This is a well developed, well nourished patient who is awake, alert, sb4 and in no acute distress. Head/Face: Normocephalic, atraumatic. Eyes: Extra-ocular motions intact. Periorbital areas with no swelling, redness, or edema. ENT: Mucous membranes moist. Respiratory: No increased work of breathing, no retractions or nasal flaring. Skin: Warm, dry with normal turgor. Normal color with no rashes, no lesions, and no evidence of cellulitis. Neuro: Awake and alert, GCS 15, oriented to person, place, time, and situation. Motor strength 5/5 in all extremities. Sensory grossly intact. 16:16 Musculoskeletal/extremity: Pulses: are normal with no appreciated deficits, Perfusion: the extremity is normally perfused throughout, Sensation intact. Joints: the left shoulder displays limited range of motion, painful range of motion, Vital Signs: 15:51 BP 144 / 91; Pulse 92; Resp 16; Temp 97.9; Pulse Ox 98% on R/A; Weight 76.2 kg; Height dd2 5 ft. 4 in. ; Pain 7/10; 16:20 BP 134 / 86; Pulse 83; Resp 19; Pulse Ox 97% ; ar8 17:15 BP 123 / 86; Pulse 68; Resp 20 S; Pulse Ox 95% on R/A; ar8 17:30 Pain 5/10; ar8 15:51 Body Mass Index 28.84 (76.20 kg, 162.56 cm) dd2 15:51 Pain Scale: Adult dd2 17:30 Pain Scale: Adult ar8 MDM: 15:50 Medical Screening Exam initiated sb4 16:16 Differential diagnosis: DJD, tendonitis, sprain, strain. sb4 17:14 Data reviewed: vital signs, nurses notes, radiologic studies, plain films, and as a sb4 result, I will discharge patient. Independent interpretation of the following test(s) in the Emergency Department X-Ray: My interpretation is My interpretation of the left shoulder x-ray images fracture or dislocation. Care significantly affected by the following chronic conditions: Hypertension. Care significantly affected by the following Social Determinants of Health: Poor access to transportation. Counseling: I had a detailed discussion with the patient and/or guardian regarding the historical points, exam findings, and any diagnostic results supporting the discharge/admit diagnosis, radiology results, the need for outpatient follow up, a orthopedic surgeon, to return to the emergency department if symptoms worsen or persist or if there are any questions or concerns that arise at home. 12/04 16:10 Order name: Shoulder Left (2 View) XRAY; Complete Time: 17:10 sb4 12/04 16:10 Order name: Shoulder Immobilizer; Complete Time: 16:20 sb4 Administered Medications: 16:20 Drug: Hydrocodone-Acetaminophen PO (7.5 mg-325 mg) 1 tabs PO once Route: PO; ar8 17:30 Follow up: Pain 08/19 Adult; Response: No adverse reaction; Pain is decreased ar8 Disposition: 16:18 I was immediately available on-site in the Emergency Department for consultation in the ms3 care of the patient. Disposition Summary: 12/04/24 17:21 Discharge Ordered Notes: Location: Home sb4 Problem: new sb4 Symptoms: have improved sb4 Condition: Stable sb4 Diagnosis - Strain of other muscles, fascia and tendons at shoulder and upper arm level, left sb4 arm Followup: sb4 - With: Yasmani Serrano MD - When: As needed - Reason: Recheck today's complaints, Re-evaluation by your physician Discharge Instructions: - Discharge Summary Sheet sb4 - Shoulder Sprain sb4 Forms: - Patient Portal Instructions sb4 - Leadership Thank You Letter sb4 Prescriptions: - meloxicam 7.5 mg Oral tablet - take 1 tablet ORAL route daily; 14 tablet; Refills: 0, Product Selection sb4 Permitted - Prednisone 20 mg Oral Tablet - take 1 tablet ORAL route once daily for 5 days; 5 tablet; Refills: 0, Product sb4 Selection Permitted Signatures: Dispatcher [employer] EDMS Chris Grimes DO DO ms3 Farhana Schultz PA-C PARachna sb4 RENAY DELGADO RN RN dd2 Jarocho Giang RN RN ar8
--- NOTE | 2024-12-04 17:22 | ER ---
Nurse's Notes [facility] Name: Fany Meza Age: 54 yrs Sex: Female : 1970 Arrival Date: 12/04/2024 Time: 15:47 Bed 15 Private MD: Diagnosis: Strain of other muscles, fascia and tendons at shoulder and upper arm level, left arm Presentation: 12/04 15:51 Chief complaint: Patient states: SHE WAS PULLING AND CUTTING TREES AND THEN SWIMMING dd2 YESTERDAY, SLEPT ON HER LEFT SIDE AND WOKE UP WITH SEVERE LT SHOULDER PAIN. Coronavirus screen: At this time, the client does not indicate any symptoms associated with coronavirus-19. Ebola Screen: No symptoms or risks identified at this time. Initial Sepsis Screen: Does the patient meet any 2 criteria? No. Patient's initial sepsis screen is negative. Does the patient have a suspected source of infection? No. Patient's initial sepsis screen is negative. Risk Assessment: Do you want to hurt yourself or someone else? Patient reports no desire to harm self or others. Onset of symptoms was December 04, 2024. 15:51 Method Of Arrival: Ambulatory dd2 15:51 Acuity: SHARAN 3 dd2 Triage Assessment: 15:55 General: Appears in no apparent distress. uncomfortable, Behavior is calm, cooperative, dd2 appropriate for age. Pain: Complains of pain in anterior aspect of left shoulder. Musculoskeletal: Circulation, motion, and sensation intact. Range of motion: limited in left shoulder Reports pain in anterior aspect of left shoulder. 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 - Infectious Disease History:: Denies. - Social history:: Smoking status: Patient reports the use of cigarette tobacco products, smokes one-half pack cigarettes per day. Screenin:30 [facility] ED Fall Risk Assessment (Adult) History of falling in the last 3 months, ar8 including since admission No falls in past 3 months (0 pts) Confusion or Disorientation No (0 pts) Intoxicated or Sedated No (0 pts) Impaired Gait No (0 pts) Mobility Assist Device Used No (0 pt) Altered Elimination No (0 pt) Score/Fall Risk Level 0 - 2 = Low Risk Oriented to surroundings, Maintained a safe environment. [facility] ED Fall Risk Assessment (Adult) Score/Fall Risk Level 0 - 2 = Low Risk Oriented to surroundings, Maintained a safe environment. Abuse screen: Denies threats or abuse. Nutritional screening: No deficits noted. Tuberculosis screening: No symptoms or risk factors identified. Assessment: 16:20 General: Appears uncomfortable, Behavior is calm, cooperative. Pain: Complains of pain ar8 in anterior aspect of left shoulder Pain currently is 7 out of 10 on a pain scale. Quality of pain is described as. Neuro: No deficits noted. Level of Consciousness is awake, alert, obeys commands, Oriented to person, place, time, situation. Cardiovascular: No deficits noted. Respiratory: No deficits noted. Airway is patent Respiratory effort is even, unlabored, Respiratory pattern is regular, symmetrical. Musculoskeletal: Capillary refill < 3 seconds, Range of motion: limited in left shoulder Tenderness present in anterior aspect of left shoulder Reports pain in anterior aspect of left shoulder. Vital Signs: 15:51 BP 144 / 91; Pulse 92; Resp 16; Temp 97.9; Pulse Ox 98% on R/A; Weight 76.2 kg; Height dd2 5 ft. 4 in. ; Pain 7/10; 16:20 BP 134 / 86; Pulse 83; Resp 19; Pulse Ox 97% ; ar8 17:15 BP 123 / 86; Pulse 68; Resp 20 S; Pulse Ox 95% on R/A; ar8 17:30 Pain 5/10; ar8 15:51 Body Mass Index 28.84 (76.20 kg, 162.56 cm) dd2 15:51 Pain Scale: Adult dd2 17:30 Pain Scale: Adult ar8 ED Course: 15:49 Patient arrived in ED. im 15:50 Farhana Schultz PA-C is PHCP. sb4 15:50 Chris Grimes DO is Attending Physician. sb4 15:55 Triage completed. dd2 15:55 Arm band placed on right wrist. dd2 16:10 Jarocho Giang, SCOTTY is Primary Nurse. ar8 16:30 Bed in low position. Call light in reach. Side rails up X 1. Provided Education on: ar8 plan of care. 16:30 No provider procedures requiring assistance completed. ar8 17:00 Shoulder Left (2 View) XRAY In Process Unspecified. EDMS 17:00 Shoulder immobilizer applied on left shoulder. ar8 17:21 Yasmani Serrano MD is Referral Physician. sb4 17:33 Patient did not have IV access during this emergency room visit. ar8 Administered Medications: 16:20 Drug: Hydrocodone-Acetaminophen PO (7.5 mg-325 mg) 1 tabs PO once Route: PO; ar8 17:30 Follow up: Pain 5/10 Adult; Response: No adverse reaction; Pain is decreased ar8 Medication: 17:33 VIS not applicable for this client. ar8 Outcome: 17:21 Discharge ordered by . sb4 17:33 Discharged to home ambulatory, ar8 17:33 Condition: stable 17:33 Discharge instructions given to patient, Instructed on discharge instructions, follow up and referral plans. medication usage, Demonstrated understanding of instructions, follow-up care, medications, Prescriptions given X 2, 17:33 Patient left the ED. ar8 Signatures: Dispatcher [employer] Farhana Salcido PA-C PAMargyC sb4 Jaelyn Lemus DIANA, RN RN dd2 Jarocho Giang RN RN ar8 Corrections: (The following items were deleted from the chart) 15:55 15:51 Acuity: SHARAN 4 dd2 dd2
[2024-12-04 21:40] VITALS: TEMP 97.9
[2024-12-04 21:44] VITALS: BP 123/86; O2SAT 95
== END 2024-12-04 17:33 | disposition home or self-care (01) ==
LOC: ER 15:47
DX: S46.812A Strain of other muscles, fascia and tendons at shoulder and upper arm level, left arm, initial encounter (principal); F17.210 Nicotine dependence, cigarettes, uncomplicated

== ENCOUNTER 2025-01-07 17:24 | Emergency (ER) | payer OTHER ==
[2025-01-07] MEDS ORDERED: KETOROLAC 30 MG/ML INJ ONE (18:22)
[2025-01-07 18:34] LABS: Absolute Lymphocytes (CBC) 2.6 K/uL (0.7-4.9); Hematocrit 42.0 % (36.0-45.0); Hemoglobin 14.1 g/dL (12.0-15.0); MCH 31.2 pg (27.0-35.0); MCHC 33.6 g/dL (32.0-36.0); MCV 93.0 fL (80-100); MPV 8.0 fL (7.6-11.3); Nucleated RBC Absolute Count 0.0 (0-0); Nucleated Red Blood Cells % 0.0 % (0-0); RBC Red Blood Cell Count 4.52 M/uL (3.86-4.86); White Blood Count 10.40 thou/uL (4.3-10.9)
--- NOTE | 2025-01-07 18:42 | RAD REPORT ---
EXAMINATION: TWO VIEW CHEST XR CLINICAL INDICATION: Female, 54 years old. [facility] MAIN Cough;Chest pain Bed: TECHNIQUE: 2 view radiographs of the chest were performed. COMPARISON: 11/10/2024 FINDINGS: The lungs are well inflated and clear. No pneumothorax or sizable effusion. The heart is normal in si ze. Mediastinal contours are unremarkable. IMPRESSION: No acute or significant abnormalities.
[2025-01-07 18:57] LABS: Anion Gap 7.1 mEq/L (5.0-15.0); BUN Blood Urea Nitrogen 21 mg/dL (7-18); Glucose Level 105 mg/dL (74-106); Potassium 4.1 mEq/L (3.5-5.1)
[2025-01-07 18:59] LABS: Troponin High Sensitivity < 3.0 pg/mL (<58.9)
--- NOTE | 2025-01-07 19:17 | ER ---
Nurse's Notes [facility] Name: Fany Meza Age: 54 yrs Sex: Female : 1970 Arrival Date: 01/07/2025 Time: 17:24 Bed 19 Private MD: Diagnosis: Pleurisy Presentation: 01/07 17:34 Chief complaint: Patient states: I feel like I have had bronchitis for the past 1.5 jb4 weeks. I am having left lower pain in my chest with deep breaths. Coronavirus screen: At this time, the client does not indicate any symptoms associated with coronavirus-19. Ebola Screen: No symptoms or risks identified at this time. Initial Sepsis Screen: Does the patient meet any 2 criteria? No. Patient's initial sepsis screen is negative. Does the patient have a suspected source of infection? No. Patient's initial sepsis screen is negative. Risk Assessment: Do you want to hurt yourself or someone else? Patient reports no desire to harm self or others. Onset of symptoms was January 07, 2025. Transition of care: patient was not received from another setting of care. 17:34 Method Of Arrival: Ambulatory jb4 17:34 Acuity: SHARAN 2 jb4 Triage Assessment: 19:26 General: Appears in no apparent distress. Behavior is cooperative. Respiratory: Reports kj2 shortness of breath upon admission to ER Onset: The symptoms/episode began/occurred gradually. 19:31 Respiratory: the patient has mild shortness of breath. 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 - Infectious Disease History:: Denies. - Social history:: Smoking status: Patient reports the use of cigarette tobacco products. Screenin:00 [facility] ED Fall Risk Assessment (Adult) History of falling in the last 3 months, jp5 including since admission No falls in past 3 months (0 pts) Confusion or Disorientation No (0 pts) Intoxicated or Sedated No (0 pts) Impaired Gait No (0 pts) Mobility Assist Device Used No (0 pt) Altered Elimination No (0 pt) Score/Fall Risk Level 0 - 2 = Low Risk Oriented to surroundings, Maintained a safe environment, Educated pt \T\ family on fall prevention, incl call for assistance when getting out of bed, Assessed \T\ reinforced patient's understanding of fall precautions, Provided non-skid footwear, Hourly rounding (assess needs \T\ fall precautionary measures) done, Used ambulatory aids as needed (educated on \T\ assisted with), Used gait belt as appropriate. Abuse screen: Denies threats or abuse. Denies injuries from another. Nutritional screening: No deficits noted. Tuberculosis screening: No symptoms or risk factors identified. Assessment: 18:00 Pain: Complains of pain in posterior chest Aggravated by breathing. Cardiovascular: No jp5 deficits noted. Rhythm is regular. Respiratory: Airway is patent Respiratory effort is even, unlabored, Breath sounds are diminished. 19:15 Reassessment: Patient appears in no apparent distress at this time. Patient and/or kj2 family updated on plan of care and expected duration. Pain level reassessed. Patient is alert, oriented x 3, equal unlabored respirations, skin warm/dry/pink. Vital Signs: 17:34 BP 151 / 86; Pulse 79; Resp 18; Temp 97.4(TE); Pulse Ox 98% on R/A; Weight 77.11 kg jb4 (R); Height 5 ft. 4 in. (R); 18:00 BP 139 / 87; Pulse 75; Resp 16; Pulse Ox 98% on R/A; jp5 19:24 BP 119 / 76; Pulse 78; Resp 20; Temp 98; Pulse Ox 98% on R/A; kj2 17:34 Body Mass Index 29.18 (77.11 kg, 162.56 cm) jb4 ED Course: 17:28 Patient arrived in ED. sj2 17:29 [facility]C [facility] kb 17:29 Tameka Banegas MD is Attending Physician. kb 17:36 Triage completed. jb4 17:36 Arm band placed on right wrist. jb4 17:38 Sujey Sher, SCOTTY is Primary Nurse. jp5 18:00 Patient has correct armband on for positive identification. Bed in low position. Call jp5 light in reach. Side rails up X 1. Provided Education on: call light use. Pulse ox on. NIBP on. 18:00 No provider procedures requiring assistance completed. jp5 18:01 Chest Pa And Lat (2 Views) XRAY In Process Unspecified. EDMS 18:15 Inserted saline lock: 20 gauge in right antecubital area, using aseptic technique. jp5 Blood collected. Flushed with 10 mL NS. 18:18 BMP Sent. jp5 18:18 CBC with Diff Sent. jp5 18:18 Troponin High Sensitivity Sent. jp5 18:38 EKG done, by ED staff, reviewed by Lisa DEY. pm7 19:12 Report given to Rossana FAJARDO. jp5 19:24 Rossana Maya, RN is Primary Nurse. kj2 19:31 IV discontinued, intact, bleeding controlled, No redness/swelling at site. Pressure kj2 dressing applied. Administered Medications: 18:24 Drug: Ketorolac IVP 15 mg IVP once Route: IVP; Site: right antecubital; jp5 19:30 Follow up: Response: No adverse reaction kj2 Medication: 18:00 VIS not applicable for this client. jp5 Outcome: 19:16 Discharge ordered by . kb 19:27 Discharged to home ambulatory, kj2 19:27 Condition: stable 19:27 Discharge instructions given to patient, Instructed on discharge instructions, follow up and referral plans. Demonstrated understanding of instructions, 19:37 Patient left the ED. kj2 Signatures: Dispatcher [employer] EDNY Lisa Cabrera FNP-C FNP-Ckb Bryson, James, RN RN jb4 Sujey Sher RN RN jp5 Rossana Maya, SCOTTY RN kj2 Ange Corey Paige pm7
--- NOTE | 2025-01-07 19:17 | EDPHYS ---
Physician Documentation [facility] Name: Fany Meza Age: 54 yrs Sex: Female : 1970 Arrival Date: 01/07/2025 Time: 17:24 Bed 19 Private MD: ED Physician Tameka Banegas HPI: 01/07 17:35 This 54 yrs old Female presents to ER via Unassigned with complaints of Breathing kb Difficulty. 17:35 Patient is a 54-year-old female who presents for pain with deep breath and movement to kb left side of the chest. States pain started this morning. Reports that she has had bronchitis for the last 2 weeks with cough, congestion. Was seen at [facility] at onset of symptoms, had negative chest x-ray and COVID test. Was put on albuterol inhalers and steroids. States symptoms have improved but the pain started today. Concern for pneumonia.. 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 - Infectious Disease History:: Denies. - Social history:: Smoking status: Patient reports the use of cigarette tobacco products. ROS: 17:36 Constitutional: As per HPI kb Exam: 17:36 Constitutional: This is a well developed, well nourished patient who is awake, alert, kb and in no acute distress. Head/Face: Normocephalic, atraumatic. ENT: Moist Mucous membranes Cardiovascular: Regular rate Respiratory: Respirations even and unlabored. No increased work of breathing. Talking in full sentences Skin: Warm, dry with normal turgor. Normal color. MS/ Extremity: Pulses equal, no cyanosis. Neurovascular intact. Full, normal range of motion. Neuro: Awake and alert, GCS 15, oriented to person, place, time, and situation. 17:36 Chest/axilla: Inspection: normal, Palpation: tenderness, that is mild, of the left lateral anterior chest, that totally reproduces the patient's complaints, 18:35 ECG was reviewed by the Attending Physician. kb Vital Signs: 17:34 BP 151 / 86; Pulse 79; Resp 18; Temp 97.4(TE); Pulse Ox 98% on R/A; Weight 77.11 kg jb4 (R); Height 5 ft. 4 in. (R); 18:00 BP 139 / 87; Pulse 75; Resp 16; Pulse Ox 98% on R/A; jp5 19:24 BP 119 / 76; Pulse 78; Resp 20; Temp 98; Pulse Ox 98% on R/A; kj2 17:34 Body Mass Index 29.18 (77.11 kg, 162.56 cm) jb4 MDM: 17:29 Medical Screening Exam initiated kb 19:23 Differential diagnosis: pneumonia, Pneumothorax Acute [place], chest wall pain, pleurisy, kb rib fracture. Data reviewed: vital signs, nurses notes. Independent interpretation of the following test(s) in the Emergency Department X-Ray: My interpretation is No pneumonia or pneumothorax on chest x-ray. Counseling: I had a detailed discussion with the patient and/or guardian regarding the historical points, exam findings, and any diagnostic results supporting the discharge/admit diagnosis, lab results, radiology results, the need for outpatient follow up, a family practitioner, to return to the emergency department if symptoms worsen or persist or if there are any questions or concerns that arise at home. 01/07 17:33 Order name: Troponin High Sensitivity; Complete Time: 19:04 kb 01/07 17:33 Order name: CBC with Diff; Complete Time: 18:35 kb 01/07 17:33 Order name: BMP; Complete Time: 19:04 kb 01/07 17:32 Order name: Chest Pa And Lat (2 Views) XRAY; Complete Time: 18:57 kb 01/07 17:32 Order name: EKG - Nurse/Tech; Complete Time: 18:39 kb 01/07 17:33 Order name: IV Start; Complete Time: 18:18 kb EC:35 Rate is 64 beats/min. Rhythm is regular. QRS [place] is Normal. [place] interval is normal at kb 142 msec. QRS interval is normal at 78 msec. QT interval is normal at 429 msec. Administered Medications: 18:24 Drug: Ketorolac IVP 15 mg IVP once Route: IVP; Site: right antecubital; jp5 19:30 Follow up: Response: No adverse reaction kj2 Disposition Summary: 01/07/25 19:16 Discharge Ordered Notes: Location: Home kb Condition: Stable kb Diagnosis - Pleurisy kb Followup: kb - With: Emergency Department - When: As needed - Reason: Worsening of condition Followup: kb - With: Private Physician - When: 2 - 3 days - Reason: Recheck today's complaints, Continuance of care, Re-evaluation by your physician Discharge Instructions: - Discharge Summary Sheet kb - Pleurisy, [id number] kb Forms: - Medication Reconciliation Form kb - Antibiotic Education kb - Prescription Opioid Use kb - Patient Portal Instructions kb - Leadership Thank You Letter kb Signatures: Dispatcher [employer] EDMS Lisa Cabrera, HEAD CHOPPER-C HEAD CHOPPER-Henrry Santos, RN RN jb4 Sujey Sher RN RN jp5 Rossana Maya RN kj2
[2025-01-07 20:13] VITALS: TEMP 98
[2025-01-07 20:17] VITALS: BP 121/85; O2SAT 100
== END 2025-01-07 19:37 | disposition home or self-care (01) ==
LOC: ER 17:24
DX: R09.1 Pleurisy (principal); Z72.0 Tobacco use
CPT/HCPCS: 36415; 71046; 80048; 84484; 85025; 93005; 96374; 99284

== ENCOUNTER 2025-01-10 07:45 | Emergency (ER) | payer OTHER ==
[2025-01-10 08:36] LABS: Influenza A Ag Negative; Influenza B Ag Negative; SARS-CoV-2 Antigen Rapid Res Negative (Negative)
[2025-01-10 09:07] LABS: Absolute Lymphocytes (CBC) 0.5 K/uL (0.7-4.9); Hematocrit 42.2 % (36.0-45.0); Hemoglobin 14.0 g/dL (12.0-15.0); MCH 30.2 pg (27.0-35.0); MCHC 33.2 g/dL (32.0-36.0); MCV 91.1 fL (80-100); MPV 8.0 fL (7.6-11.3); Nucleated RBC Absolute Count 0.0 (0-0); Nucleated Red Blood Cells % 0.0 % (0-0); RBC Red Blood Cell Count 4.63 M/uL (3.86-4.86); White Blood Count 17.10 thou/uL (4.3-10.9)
[2025-01-10 09:09] LABS: Sqamous Epithelial None Seen /HPF (None Seen); Urine Culture Reflex Order NOT NEEDED; Urine Microscopic Reflex YN ORDER UMIC
[2025-01-10 09:18] LABS: PT Prothrombin Time 12.9 SECONDS (10-13.0); PTT, Activated Partial Thromb 28.8 SECONDS (27.2-37.4); Protime INR 1.15
--- NOTE | 2025-01-10 09:44 | RAD REPORT ---
EXAM: Chest Single View HISTORY: 54 years Female COUGH COMPARISON: 01/07/25 FINDINGS: LUNGS/PLEURA: The lungs are clear. No pleural effusions or pneumothorax. No pulmonary edema. CARDIAC/MEDIASTINUM: The cardiac silhouette is within normal limits. UPPER ABDOMEN: No significant abnormality. BONES: No acute abnormality. LINES/TUBES/OTHER: N/A IMPRESSION: No evidence of acute cardiopulmonary disease.
[2025-01-10] MEDS ORDERED: ACETAMINOPHEN 500 MG TAB ONE (09:57)
[2025-01-10 10:09] LABS: Blood Morphology Comment NOT SEEN (NOT SEEN); Differential Total Cells Count 100; Segmented Neutrophils 82 % (40-80)
[2025-01-10 10:28] LABS: ALT/SGPT 25.0 U/L (13-56); AST/SGOT 18.0 U/L (15-37); Albumin 3.5 g/dL (3.4-5.0); Albumin/Globulin Ratio 1.2 (1.1-1.8); Alkaline Phosphatase 50.0 U/L (45-117); Anion Gap 8.7 mEq/L (5.0-15.0); BUN Blood Urea Nitrogen 16.0 mg/dL (7-18); Globulin 3.0 g/dL (2.3-3.5); Glucose Level 115.0 mg/dL (74-106); Potassium 3.7 mEq/L (3.5-5.1)
--- NOTE | 2025-01-10 10:46 | EDPHYS ---
Physician Documentation [facility] Name: Fany Meza Age: 54 yrs Sex: Female : 1970 Arrival Date: 01/10/2025 Time: 07:45 Bed 2 Private MD: ED Physician Chris Grimes HPI: 01/10 08:37 This 54 yrs old Female presents to ER via Ambulatory with complaints of Flu Symptoms. ms3 08:37 54-year-old female with past medical history of gastroesophageal reflux disease, ms3 hypertension, cervical cancer presents to the emergency department for generalized bodyaches and back pain. Patient states that she recently was treated for bronchitis for 2 weeks with steroids and Tessalon Perles. At 4 AM this morning she began shaking and was freezing. Patient states she measured her temperature and it was 101. Patient notes she has also been treated for a Klebsiella UTI for the last 4 months. Patient states her discomfort is a 5/10 described as aching. Patient endorses nausea, vomiting, bilateral flank pain.. Historical: - Allergies: 07:57 Sulfa (Sulfonamide Antibiotics); iw - PMHx: 07:57 Gastroesophageal reflux disease; Hypertensive disorder; cervical cancer; iw - PSHx: 07:57 section; neck; tubal ligation; iw - Immunization history:: Adult Immunizations. - Infectious Disease History:: Denies. - Social history:: Smoking status: Patient reports the use of cigarette tobacco products, smokes one-half pack cigarettes per day. ROS: 08:37 Cardiovascular: Negative for chest pain, and palpitations. Respiratory: Negative for ms3 shortness of breath, cough, wheezing, and pleuritic chest pain, Abdomen/GI: Negative for abdominal pain, nausea, vomiting, diarrhea, and constipation, 08:37 Skin: Negative for injury, rash, and discoloration, 08:37 Constitutional: Positive for body aches, chills, fever, 08:37 Back: Positive for flank pain, bilaterally, Exam: 08:37 Constitutional: This is a well developed, well nourished patient who is awake, alert, ms3 and in no acute distress. Cardiovascular: Regular rate and rhythm with a normal S1 and S2. No gallops, murmurs, or rubs. Normal PMI, no JVD. No pulse deficits. Respiratory: Lungs have equal breath sounds bilaterally, clear to auscultation and percussion. No rales, rhonchi or wheezes noted. No increased work of breathing, no retractions or nasal flaring. Abdomen/GI: Soft, non-tender, with normal bowel sounds. No distension or tympany. No guarding or rebound. No evidence of tenderness throughout. 08:37 ECG was reviewed by the Attending Physician. Vital Signs: 07:55 BP 97 / 83; Pulse 125; Resp 18; Temp 100.1; Pulse Ox 97% on R/A; Weight 78.93 kg; iw Height 5 ft. 4 in. ; Pain 5/10; 08:40 BP 112 / 75; Pulse 99; Resp 18; Pulse Ox 97% on R/A; db 09:00 BP 109 / 73; Pulse 94; Resp 18; Pulse Ox 97% ; db 10:00 BP 101 / 66; Pulse 93; Resp 16; Pulse Ox 95% ; db 11:36 BP 96 / 70; Pulse 76; Resp 16; Pulse Ox 95% ; db 07:55 Body Mass Index 29.87 (78.93 kg, 162.56 cm) iw 07:55 Pain Scale: Adult iw MDM: 08:07 Medical Screening Exam initiated ms3 08:49 Differential diagnosis: flu, URI, COVID vs UTI. ms3 09:53 ED course: WBC likely elevated secondary to steroid use.. ms3 11:31 Data reviewed: vital signs, nurses notes, lab test result(s), EKG, radiologic studies, ms3 and as a result, I will discharge patient. I considered the following discharge prescriptions or medication management in the emergency department Medications were administered in the Emergency Department. See MAR. Independent interpretation of the following test(s) in the Emergency Department X-Ray: My interpretation is Chest x-ray image reviewed by me did not reveal pneumonia. Counseling: I had a detailed discussion with the patient and/or guardian regarding the historical points, exam findings, and any diagnostic results supporting the discharge/admit diagnosis, lab results, radiology results, the need for outpatient follow up, to return to the emergency department if symptoms worsen or persist or if there are any questions or concerns that arise at home. Special discussion: I discussed with the patient/guardian in detail that at this point there is no indication for admission to the hospital. It is understood, however, that if the symptoms persist or worsen the patient needs to return immediately for re-evaluation. ED course: Discussed elevated white blood count likely secondary to steroid use with patient. Patient is without abdominal pain and abdominal exam is benign. Chest x-ray is negative. Flu and COVID negative. Patient symptoms improved, patient is alert and orient x 4, no apparent distress, nontoxic-appearing, speaking full sentences.. 01/10 07:56 Order name: COVID-19 Ag + Flu A+B Ag; Complete Time: 09:52 ms3 01/10 08:21 Order name: Blood Culture Adult (2) ms3 01/10 08:21 Order name: CBC with Diff; Complete Time: 10:28 ms3 01/10 08:21 Order name: CMP; Complete Time: 10:28 ms3 01/10 08:21 Order name: Lactate w/ 2H reflex if indic.; Complete Time: 09:52 ms3 01/10 08:21 Order name: Protime (+inr); Complete Time: 09:52 ms3 01/10 08:21 Order name: Ptt, Activated; Complete Time: 09:52 ms3 01/10 08:21 Order name: UA Rfx Elmer Cult if indicated; Complete Time: 09:52 ms3 01/10 10:09 Order name: Manual Differential; Complete Time: 10:28 EDMS 01/10 08:21 Order name: Chest Single View XRAY; Complete Time: 09:52 ms3 01/10 08:21 Order name: Accucheck; Complete Time: 08:26 ms3 01/10 08:21 Order name: Cardiac monitoring; Complete Time: 08:26 ms3 01/10 08:21 Order name: EKG - Nurse/Tech; Complete Time: 08:26 ms3 01/10 08:21 Order name: IV Saline Lock - Large Bore; Complete Time: 08:45 ms3 01/10 08:21 Order name: Labs collected and sent; Complete Time: 08:45 ms3 01/10 08:21 Order name: O2 Per Protocol; Complete Time: 08:26 ms3 01/10 08:21 Order name: O2 Sat Monitoring; Complete Time: 08:26 ms3 01/10 08:21 Order name: Vital Signs; Complete Time: 08:26 ms3 01/10 09:17 Order name: Labs - recollect needed: recollect green top; Complete Time: 10:02 bd 01/10 09:46 Order name: Labs - recollect needed: recollect green top; Complete Time: 10: bd EC:37 Rate is 103 beats/min. Rhythm is regular. QRS [place] is Normal. ME interval is normal. ms3 QRS interval is normal. Clinical impression: Sinus tachycardia. Interpreted by me. Reviewed by me. Administered Medications: 10:02 Drug: Acetaminophen PO 1000 mg PO once Route: PO; db 11:38 Follow up: Response: No adverse reaction db Disposition Summary: 01/10/25 10:45 Discharge Ordered Notes: Location: Home ms3 Condition: Stable ms3 Diagnosis - Fever, unspecified ms3 - Leukocytosis ms3 Followup: ms3 - With: Indra Banegas DO - When: 2 - 3 days - Reason: Recheck today's complaints Discharge Instructions: - Discharge Summary Sheet ms3 - Fever, Adult, Hfkb-tb-Iasl ms3 Forms: - Medication Reconciliation Form ms3 - Antibiotic Education ms3 - Prescription Opioid Use ms3 - Patient Portal Instructions ms3 - Leadership Thank You Letter ms3 Signatures: Dispatcher [employer] EDMS Tonya Dominguez bd Cherelle Moreau, RN SCOTTY iw Chris Grimes DO DO ms3 Ness Marx RN RN db Corrections: (The following items were deleted from the chart) 07:56 07:56 COVID-19 Ag + Flu A+B Ag+I.LAB.BRZ ordered. EDMS EDMS 08:22 08:22 BLOOD CULTURE*+BA.LAB.BRZ ordered. EDMS EDMS 08:22 08:22 CBC+H.LAB.BRZ ordered. EDMS EDMS 08:22 08:22 COMPREHENSIVE METABOLIC PANEL+C.LAB.BRZ ordered. EDMS EDMS 08:22 08:22 LACTATE+C.LAB.BRZ ordered. EDMS EDMS 08:22 08:22 PROTIME (+INR)+COAG.LAB.BRZ ordered. EDMS EDMS 08:22 08:22 PTT, ACTIVATED+COAG.LAB.BRZ ordered. EDMS EDMS 08:22 08:22 UA Rfx Lemer Cult if indicated+U.LAB.BRZ ordered. EDMS EDMS 08:22 08:22 Chest Single View+RAD.RAD.BRZ ordered. EDMS EDMS 10:11 09:17 CBC Smear Scan ordered. EDMS EDMS
--- NOTE | 2025-01-10 10:46 | ER ---
Nurse's Notes [facility] Name: Fany Meza Age: 54 yrs Sex: Female : 1970 Arrival Date: 01/10/2025 Time: 07:45 Bed 2 Private MD: Diagnosis: Fever, unspecified;Leukocytosis Presentation: 01/10 07:55 Chief complaint: Patient states: has been dealing with bronchitis, has been on iw steroids, last night she felt feverish, had chills, body aches. also having back pain and had a UTI last month. Coronavirus screen: Client presents with at least one sign or symptom that may indicate coronavirus-19. Ebola Screen: No symptoms or risks identified at this time. 07:55 Method Of Arrival: Ambulatory 07:56 Initial Sepsis Screen: Does the patient meet any 2 criteria? HR > 90 bpm. Does the iw patient have a suspected source of infection? No. Patient's initial sepsis screen is negative. Risk Assessment: Do you want to hurt yourself or someone else? Patient reports no desire to harm self or others. Onset of symptoms was January 10, 2025. 07:56 Acuity: SHARAN 3 iw Triage Assessment: 08:00 General: Appears in no apparent distress. ill, Behavior is calm, cooperative, bp appropriate for age. Pain: Complains of pain in back. EENT: No deficits noted. Neuro: No deficits noted. Cardiovascular: Rhythm is sinus tachycardia. Respiratory: No deficits noted. GI: No signs and/or symptoms were reported involving the gastrointestinal system. : Reports pain in lower back. Derm: No deficits noted. Musculoskeletal: No deficits noted. Historical: - Allergies: 07:57 Sulfa (Sulfonamide Antibiotics); iw - PMHx: 07:57 Gastroesophageal reflux disease; Hypertensive disorder; cervical cancer; iw - PSHx: 07:57 section; neck; tubal ligation; iw - Immunization history:: Adult Immunizations. - Infectious Disease History:: Denies. - Social history:: Smoking status: Patient reports the use of cigarette tobacco products, smokes one-half pack cigarettes per day. Screenin:00 [facility] ED Fall Risk Assessment (Adult) History of falling in the last 3 months, bp including since admission No falls in past 3 months (0 pts) Confusion or Disorientation No (0 pts) Intoxicated or Sedated No (0 pts) Impaired Gait No (0 pts) Mobility Assist Device Used No (0 pt) Altered Elimination No (0 pt) Score/Fall Risk Level 0 - 2 = Low Risk Oriented to surroundings. Abuse screen: Denies threats or abuse. Denies injuries from another. Nutritional screening: No deficits noted. Tuberculosis screening: No symptoms or risk factors identified. Assessment: 08:00 General: SEE TRIAGE NOTE. bp 09:12 Reassessment: Patient appears in no apparent distress at this time. Patient and/or db family updated on plan of care and expected duration. Pain level reassessed. Patient is alert, oriented x 3, equal unlabored respirations, skin warm/dry/pink. General: Appears in no apparent distress. comfortable, Behavior is calm, cooperative. 11:33 Reassessment: Patient appears in no apparent distress at this time. Patient and/or db family updated on plan of care and expected duration. Pain level reassessed. Patient is alert, oriented x 3, equal unlabored respirations, skin warm/dry/pink. Neuro: Level of Consciousness is awake, alert, obeys commands, Oriented to person, place, time, situation. Respiratory: Airway is patent Respiratory effort is even, unlabored, Respiratory pattern is regular, symmetrical. Vital Signs: 07:55 BP 97 / 83; Pulse 125; Resp 18; Temp 100.1; Pulse Ox 97% on R/A; Weight 78.93 kg; iw Height 5 ft. 4 in. ; Pain 5/10; 08:40 BP 112 / 75; Pulse 99; Resp 18; Pulse Ox 97% on R/A; db 09:00 BP 109 / 73; Pulse 94; Resp 18; Pulse Ox 97% ; db 10:00 BP 101 / 66; Pulse 93; Resp 16; Pulse Ox 95% ; db 11:36 BP 96 / 70; Pulse 76; Resp 16; Pulse Ox 95% ; db 07:55 Body Mass Index 29.87 (78.93 kg, 162.56 cm) iw 07:55 Pain Scale: Adult iw ED Course: 07:47 Patient arrived in ED. im 07:55 Chris Grimes DO is Attending Physician. ms3 07:56 Triage completed. iw 07:57 Arm band placed on. iw 08:00 Patient has correct armband on for positive identification. bp 08:04 Roger Blakely, RN is Primary Nurse. bp 08:07 COVID-19 Ag + Flu A+B Ag Sent. bc6 08:40 Initial lab(s) drawn, by me, sent to lab. EKG done, by ED staff, reviewed by Chris Grimes DO. Inserted saline lock: 20 gauge in right forearm, using aseptic technique. Blood collected. Flushed with 10 mL NS. 09:36 Chest Single View XRAY In Process Unspecified. EDMS 10:02 Lab(s) recollected, by ED staff, sent to lab. db 10:44 Indra Banegas DO is Referral Physician. ms3 11:33 Provided Education on: DISCHARGE. Client placed on continuous cardiac and pulse db oximetry monitoring. NIBP monitoring applied. phototypesetting equipment monitor on. Pulse ox on. NIBP on. Warm blanket given. Pillow given. 11:33 No provider procedures requiring assistance completed. IV discontinued, intact, db bleeding controlled, No redness/swelling at site. Administered Medications: 10:02 Drug: Acetaminophen PO 1000 mg PO once Route: PO; db 11:38 Follow up: Response: No adverse reaction db Medication: 08:00 VIS not applicable for this client. bp Outcome: 10:45 Discharge ordered by MD. ms3 11:33 Discharged to home ambulatory, db 11:33 Condition: stable 11:33 Discharge instructions given to patient, Instructed on discharge instructions, follow up and referral plans. 11:38 Patient left the ED. db Signatures: Dispatcher [employer] EDMS Cherelle Moreau RN RN iw Peltier, Brian, RN Chris Nguyen DO DO ms3 Ness Marx, RN RN db Radha Seals 6 Jaelyn eLmus Corrections: (The following items were deleted from the chart) 07:57 07:55 Chief complaint: Patient states: has been dealing with bronchitis, has been on iw steroids, last night she felt feverish, also having back pain and had a UTI last month iw 07:58 07:55 BP 97 / 83; Pulse 125bpm; Resp 18bpm; Pulse Ox 97% RA; Temp 100.1F; iw iw
[2025-01-10 11:43] VITALS: TEMP 100.1
[2025-01-10 11:48] VITALS: O2SAT 95
[2025-01-10 11:49] VITALS: BP 96/70
== END 2025-01-10 11:38 | disposition home or self-care (01) ==
LOC: ER 07:45
DX: R50.9 Fever, unspecified (principal); D72.829 Elevated white blood cell count, unspecified; K21.9 Gastro-esophageal reflux disease without esophagitis; I10 Essential (primary) hypertension; M54.9 Dorsalgia, unspecified; F17.210 Nicotine dependence, cigarettes, uncomplicated; Z85.41 Personal history of malignant neoplasm of cervix uteri; Z88.2 Allergy status to sulfonamides; Z11.52 Encounter for screening for COVID-19
CPT/HCPCS: 36415; 71045; 80053; 81001; 83605; 85025; 85610; 85730; 87040; 87428; 93005; 99284

== ENCOUNTER 2025-01-24 19:00 | Emergency (ER) | payer OTHER ==
[2025-01-24] MEDS ORDERED: MORPHINE 4 MG/ML SYR ONE (19:17)
[2025-01-24] MEDS ORDERED: ONDANSETRON 4 MG/2 ML VIAL ONE (19:24)
[2025-01-24 19:37] LABS: Absolute Lymphocytes (CBC) 2.4 K/uL (0.7-4.9); Hematocrit 42.7 % (36.0-45.0); Hemoglobin 14.4 g/dL (12.0-15.0); MCH 31.0 pg (27.0-35.0); MCHC 33.7 g/dL (32.0-36.0); MCV 92.1 fL (80-100); MPV 7.1 fL (7.6-11.3); Nucleated RBC Absolute Count 0.0 (0-0); Nucleated Red Blood Cells % 0.1 % (0-0); RBC Red Blood Cell Count 4.63 M/uL (3.86-4.86); White Blood Count 7.00 thou/uL (4.3-10.9)
[2025-01-24 19:52] LABS: Anion Gap 9.0 mEq/L (5.0-15.0); BUN Blood Urea Nitrogen 9.0 mg/dL (7-18); Glucose Level 114.0 mg/dL (74-106); Potassium 4.0 mEq/L (3.5-5.1)
[2025-01-24] MEDS ORDERED: NA CHLORIDE 0.9% 100 ML ONE (20:43)
[2025-01-24] MEDS ORDERED: KETOROLAC 30 MG/ML INJ ONE (20:43)
[2025-01-24] MEDS ORDERED: METHOCARBAMOL 1,000 MG/10 ML VIAL ONE (20:43)
--- NOTE | 2025-01-24 20:59 | RAD REPORT ---
EXAM: CT CHEST, ABDOMEN AND PELVIS WITH CONTRAST CLINICAL INDICATION: Female, 54 years old. left flank pain from fall TECHNIQUE: CT chest, abdomen, and pelvis was performed, following the administration of contrast, as per department protocol. Axial, sagittal and coronal reconstructions were obtained. One or more of the following dose reduction techniques were used: Automated exposure control, adjustment of the mA a nd/or kV according to patient size, and/or iterative reconstruction. Unless otherwise specified, incidental findings do not require dedicated imaging follow-up. COMPARISON: 02/29/2024 CT chest. 03/12/2024 CT abdomen and pelvis FINDINGS: LUNGS AND AIRWAYS: No evidence of airspace or interstitial process. No nodules. PLEURA: No pleural effusion. No pneumothorax. MEDIASTINUM AND LYMPH NODES: No mediastinal mass or fluid collection. Normal size mediastinal, hilar, and axillary lymph nodes. THORACIC AORTA: Normal caliber and configuration. PULMONARY ARTERIES: Normal caliber. OSSEOUS STRUCTURES AND CHEST WALL: Intact. LIVER: Normal in size and contour. No focal lesion or biliary dilitation. BILIARY SYSTEM: No suspicious abnormalities. PANCREAS: No mass, ductal dilation, or lala-pancreatic fluid. SPLEEN: Normal size. No focal lesion. ADRENALS: Normal; no mass. KIDNEYS AND URETERS: Normal size and contour. No hydronephrosis. URINARY BLADDER: Normal contour. GASTROINTESTINAL TRACT: No bowel obstruction, free air, significant free fluid or abscess. APPENDIX: No inflammatory changes in region of appendix. LYMPH NODES: No lymphadenopathy. ABDOMINAL AORTA AND OTHER VESSELS: Normal caliber aorta and IVC. MUSCULOSKELETAL: No acute or suspicious osseous abnormality. IMPRESSION: No acute or traumatic abnormalities seen in the chest, abdomen or pelvis.
[2025-01-24 22:06] LABS: Sqamous Epithelial <5 /HPF (None Seen); Urine Culture Reflex Order NOT NEEDED; Urine Microscopic Reflex YN ORDER UMIC; Urine WBC Clump Rare /HPF (None Seen)
--- NOTE | 2025-01-24 22:20 | EDPHYS ---
Physician Documentation [facility] Name: Fany Meza Age: 54 yrs Sex: Female : 1970 Arrival Date: 01/24/2025 Time: 19:00 Bed 19 Private MD: ED Physician Luis Flaherty HPI: 01/24 19:25 This 54 yrs old Female presents to ER via Ambulatory with complaints of Fall Injury. cp 19:25 Details of fall: The patient fell from an upright position, while walking, and struck cp stairs of RV. 19:25 Onset: The symptoms/episode began/occurred just prior to arrival. Associated injuries: cp The patient sustained injury to the chest, specifically the left lateral posterior chest and left lateral anterior chest, pain with breathing, pain with movement, tenderness, injury to the abdomen, specifically the posterior aspect of left lateral abdomen and anterior aspect of left lateral abdomen, tenderness. Severity of symptoms: in the emergency department the symptoms are unchanged, despite home interventions. Denies LOC and hitting head. Historical: - Allergies: 19:13 Sulfa (Sulfonamide Antibiotics); dd2 - PMHx: 19:13 cervical cancer; Gastroesophageal reflux disease; Hypertensive disorder; dd2 - PSHx: 19:13 section; neck; tubal ligation; dd2 - Immunization history:: Adult Immunizations unknown. - Infectious Disease History:: Denies. - Immunization history: Last tetanus immunization: unknown. - Social history:: Smoking status: Patient reports the use of cigarette tobacco products, smokes one-half pack cigarettes per day. ROS: 19:30 Constitutional: Negative for body aches, chills, fever, poor PO intake, cp 19:30 Eyes: Negative for injury, pain, redness, and discharge, cp 19:30 Neck: Negative for stiffness, 19:30 Cardiovascular: Positive for chest pain, of the left lateral anterior chest and left lateral posterior chest, 19:30 Abdomen/GI: Positive for abdominal pain, nausea, of the posterior aspect of left lateral abdomen and anterior aspect of left lateral abdomen, 19:30 Skin: Negative for cellulitis, rash, 19:30 Neuro: Negative for altered mental status, dizziness, headache, loss of consciousness, numbness, syncope, near syncope, weakness, 19:30 All other systems are negative, Exam: 19:35 Constitutional: The patient appears in no acute distress, alert, awake, cp non-diaphoretic, non-toxic, well developed, well nourished, in obvious pain, uncomfortable, 19:35 Head/Face: Normocephalic, atraumatic. cp 19:35 Eyes: Periorbital structures: appear normal, Conjunctiva: normal, no exudate, no injection, Sclera: no appreciated abnormality, Lids and lashes: appear normal, bilaterally, 19:35 ENT: External ear(s): are unremarkable, Nose: is normal, Mouth: Lips: moist, Oral mucosa: moist, Posterior pharynx: Airway: no evidence of obstruction, patent, 19:35 Chest/axilla: Inspection: normal, Palpation: crepitus, is not appreciated, tenderness, that is severe, of the left lateral anterior lower chest and left lateral posterior lower chest, 19:35 Cardiovascular: Rate: normal, Rhythm: regular, Edema: is not appreciated, JVD: is not appreciated, 19:35 Respiratory: the patient does not display signs of respiratory distress, Respirations: labored breathing, is not present, intercostal retractions, are absent, shallow respirations, that is mild, 19:35 Abdomen/GI: Inspection: abdomen appears normal, Bowel sounds: active, all quadrants, Palpation: soft, in all quadrants, severe abdominal tenderness, in the posterior aspect of left lateral abdomen and anterior aspect of left lateral abdomen, rebound tenderness, is not appreciated, involuntary guarding, is not appreciated, 19:35 Back: vertebral tenderness, is not appreciated, 19:35 Musculoskeletal/extremity: Exam is negative for decreased range of motion, deformity, injury, 19:35 Skin: cellulitis, is not appreciated, no rash present. 19:35 Neuro: Orientation: to person, place \T\ time. Mentation: is normal, Cerebellar function: is grossly normal, Motor: moves all fours, strength is normal, Sensation: is normal, Vital Signs: 19:12 BP 138 / 86; Pulse 88; Resp 18; Temp 97.4; Pulse Ox 99% ; Weight 77.11 kg; Pain 8/10; dd2 21:57 Pulse 68; Resp 16; Pulse Ox 97% on R/A; km10 19:12 Pain Scale: Adult dd2 Hemal Coma Score: 21:00 Eye Response: spontaneous(4). Motor Response: obeys commands(6). Verbal Response: km10 oriented(5). Total: 15. Trauma Score (Adult): 21:00 Eye Response: spontaneous(1); Verbal Response: oriented(1); Motor Response: obeys km10 commands(2); Systolic BP: > 89 mm Hg(4); Respiratory Rate: 10 to 29 per min(4); Hemal Score: 15; Trauma Score: 12 MDM: 19:10 Medical Screening Exam initiated cp 20:00 Differential diagnosis: contusion, fracture, laceration, multiple trauma, cp intraabdominal injury, intrathoracic injury. 22:19 Data reviewed: vital signs, nurses notes, lab test result(s), radiologic studies, CT cp scan. 22:19 I considered the following discharge prescriptions or medication management in the emergency department Medications were administered in the Emergency Department. See MAR. 22:19 Care significantly affected by the following chronic conditions: Hypertension. Counseling: I had a detailed discussion with the patient and/or guardian regarding the historical points, exam findings, and any diagnostic results supporting the discharge/admit diagnosis, lab results, radiology results, to return to the emergency department if symptoms worsen or persist or if there are any questions or concerns that arise at home. ED course: VSS. Discussed radiology results that were negative for acute traumatic injuries. Pain improved with med. Will discharge to home for continued monitoring. 01/24 19:21 Order name: Basic Metabolic Panel; Complete Time: 20:33 01/24 19:21 Order name: CBC with Diff; Complete Time: 20:33 01/24 19:21 Order name: Type And Screen; Complete Time: 20:33 01/24 21:42 Order name: UA Rfx Elmer Cult if indicated; Complete Time: 22:10 01/24 22:10 Interpretation: Normal except: Urine SG > 1.030; UESTR 75. 01/24 19:28 Order name: CT Chest, Abdomen, Pelvis - W/Contrast; Complete Time: 21:42 01/24 21:42 Interpretation: Report reviewed. 01/24 19:21 Order name: Labs collected and sent; Complete Time: 19:31 Administered Medications: 19:33 Drug: morphine IVP or IV 4 mg IVP once over 4 mins Route: IVP; Infused Over: 4 mins; km10 Site: right antecubital; 21:23 Follow up: Response: No adverse reaction 10 19:33 Drug: Ondansetron IVP 4 mg IVP once; over 2 minutes Route: IVP; Site: right antecubital;km10 21:23 Follow up: Response: No adverse reaction 10 20:51 Drug: Methocarbamol IVPB 1 grams IVPB once over 1 hrs; (mix in NS 100 mL) Route: IVPB; kd3 Infused Over: 1 hrs; Site: right antecubital; 21:23 Follow up: Response: No adverse reaction; IV Status: Completed infusion 10 20:51 Drug: Ketorolac IVP 15 mg IVP once Route: IVP; Site: right antecubital; kd3 21:24 Follow up: Response: No adverse reaction 10 22:22 Drug: Hydrocodone-Acetaminophen PO (7.5 mg-325 mg) 1 tabs PO once; RASS on ADMIN: km10 Combtv4, Very Agttd3, Agttd2, Rstlss1, AlertClm0, Drwsy-1, Lt Sdtn-2, Mod Sdtn-3, Dp Sdtn-4, UnArsble-5 Route: PO; 22:31 Follow up: Response: No adverse reaction; Pain is decreased Disposition: 23:51 Co-signature as Attending Physician, Luis Flaherty DO I reviewed the patient's care tt7 provided by the Advanced Practice Provider and agree with the diagnosis and treatment plan. Disposition Summary: 01/24/25 22:19 Discharge Ordered Notes: Location: Home cp Problem: new cp Symptoms: have improved cp Condition: Stable cp Diagnosis - Contusion of left front wall of thorax cp - Contusion of left back wall of thorax cp - Fall on same level from slipping, tripping and stumbling with subsequent striking cp against object Followup: cp - With: Private Physician - When: 2 - 3 days - Reason: Worsening of condition Discharge Instructions: - Discharge Summary Sheet cp - Rib Contusion cp - Chest Wall Pain cp Forms: - Medication Reconciliation Form cp - Antibiotic Education cp - Prescription Opioid Use cp - Patient Portal Instructions cp - Leadership Thank You Letter cp Prescriptions: - Anaprox DS 550 mg Oral Tablet - take 1 tablet ORAL route every 12 hours As needed; 20 tablet; Refills: 0, cp Product Selection Permitted - methocarbamol 750 mg Oral tablet - take 1 tablet ORAL route 3-4 times daily; 30 tablet; Refills: 0, Product cp Selection Permitted Signatures: Dispatcher [employer] EDMS Nigel Oliver PA-C PA-C cp Doucette, Kyli RN RN kd3 RENAY DELGADO RN RN dd2 Jazmine Burleson RN RN km10 Luis Flaherty DO DO tt7 Corrections: (The following items were deleted from the chart) 19:22 19:22 Chest Single View+RAD.RAD.BRZ ordered. EDMS EDMS
--- NOTE | 2025-01-24 22:20 | ER ---
Nurse's Notes [facility] Name: Fany Meza Age: 54 yrs Sex: Female : 1970 Arrival Date: 01/24/2025 Time: 19:00 Bed 19 Private MD: Diagnosis: Contusion of left front wall of thorax;Contusion of left back wall of thorax;Fall on same level from slipping, tripping and stumbling with subsequent striking against object Presentation: 01/24 19:12 Chief complaint: Patient states: SHE FELL GETTING OUT OF THE TUB ONTO STEPS IN HER RV, dd2 HITTING LT RIBS. Coronavirus screen: At this time, the client does not indicate any symptoms associated with coronavirus-19. Ebola Screen: No symptoms or risks identified at this time. Initial Sepsis Screen: Does the patient meet any 2 criteria? No. Patient's initial sepsis screen is negative. Does the patient have a suspected source of infection? No. Patient's initial sepsis screen is negative. Risk Assessment: Do you want to hurt yourself or someone else? Patient reports no desire to harm self or others. Onset of symptoms was January 24, 2025. 19:12 Method Of Arrival: Ambulatory dd2 19:12 Acuity: SHARAN 3 dd2 20:00 Care prior to arrival: None. km10 20:00 Mechanism of Injury: Fall from standing position. km10 Triage Assessment: 19:13 General: Appears in no apparent distress. uncomfortable, Behavior is cooperative, dd2 appropriate for age, crying. Pain: Complains of pain in left lateral posterior chest and left lateral anterior chest. Derm: Bruising that is bright red, on left lateral posterior chest. Historical: - Allergies: 19:13 Sulfa (Sulfonamide Antibiotics); dd2 - PMHx: 19:13 cervical cancer; Gastroesophageal reflux disease; Hypertensive disorder; dd2 - PSHx: 19:13 section; neck; tubal ligation; dd2 - Immunization history:: Adult Immunizations unknown. - Infectious Disease History:: Denies. - Immunization history: Last tetanus immunization: unknown. - Social history:: Smoking status: Patient reports the use of cigarette tobacco products, smokes one-half pack cigarettes per day. Screenin:13 Abuse screen: Denies threats or abuse. Denies injuries from another. Tuberculosis km10 screening: No symptoms or risk factors identified. 19:18 [facility] ED Fall Risk Assessment (Adult) History of falling in the last 3 months, km10 including since admission Yes- single mechanical fall (1 pt) Confusion or Disorientation No (0 pts) Intoxicated or Sedated No (0 pts) Impaired Gait No (0 pts) Mobility Assist Device Used No (0 pt) Altered Elimination No (0 pt) Score/Fall Risk Level 0 - 2 = Low Risk Oriented to surroundings, Maintained a safe environment, Hourly rounding (assess needs \T\ fall precautionary measures) done. Nutritional screening: No deficits noted. Primary Survey: 19:12 NO uncontrolled hemorrhage observed. A: The client is awake and alert. The airway is km10 patent. Breathing/Chest: Spontaneous respiratory effort, equal unlabored respirations, breath sounds clear bilaterally, regular pattern, symmetrical chest rise and fall. Circulation: No external hemorrhage present. Regular and strong central pulse, skin warm/dry/normal color. Disability Pupils are equal, round, reactive to light and accommodation. Client is alert. Exposure/Environment: There is no evidence of uncontrolled external bleeding. Obvious injury(ies) are noted at this time: bruising to left ribs region A warming method has been applied:. 22:00 Reassessment Alertness and Airway: Awake and alert. The airway is patent. Breathing: km10 Spontaneous respiratory effort, equal unlabored respirations, breath sounds clear bilaterally, regular pattern with symmetrical chest rise and fall. Circulation: No external hemorrhage noted. Regular and strong central pulse, skin warm/dry/normal color. Disability: Pupils Pupils are equal, round, reactive to light and accomodation. Alert. Secondary Survey: 19:16 HEENT: No deficits noted. Gastrointestinal: No deficits noted. : No deficits noted. km10 Musculoskeletal: Reports pain in anterior aspect of left lateral abdomen since \R\ 30 min ago. Pain is 8 out of 10 on a pain scale. Injury Description: Bruise sustained to anterior aspect of left lateral abdomen is red, was sustained less than 30 minutes ago. Assessment: 19:19 General: Appears uncomfortable, Behavior is cooperative. Pain: Complains of pain in km10 anterior aspect of left lateral abdomen Pain currently is 8 out of 10 on a pain scale. Quality of pain is described as throbbing, Pain began 30 min ago. Is continuous, Aggravated by increased activity, Noted to be grimacing, moaning, restless. Neuro: Level of Consciousness is awake, alert, Oriented to person, place, time, situation, Appropriate for age. Respiratory: Airway is patent Respiratory effort is even, unlabored. Derm: Bruising that is. 21:23 Reassessment: Patient and/or family updated on plan of care and expected duration. Pain km10 level reassessed. Patient is alert, oriented x 3, equal unlabored respirations, skin warm/dry/pink. 21:57 Reassessment: Patient and/or family updated on plan of care and expected duration. Pain km10 level reassessed. Patient is alert, oriented x 3, equal unlabored respirations, skin warm/dry/pink. 22:22 Reassessment: Patient appears in no apparent distress at this time. Patient states km10 feeling better. Vital Signs: 19:12 BP 138 / 86; Pulse 88; Resp 18; Temp 97.4; Pulse Ox 99% ; Weight 77.11 kg; Pain 8/10; dd2 21:57 Pulse 68; Resp 16; Pulse Ox 97% on R/A; km10 19:12 Pain Scale: Adult dd2 [place] Coma Score: 21:00 Eye Response: spontaneous(4). Motor Response: obeys commands(6). Verbal Response: km10 oriented(5). Total: 15. Trauma Score (Adult): 21:00 Eye Response: spontaneous(1); Verbal Response: oriented(1); Motor Response: obeys km10 commands(2); Systolic BP: > 89 mm Hg(4); Respiratory Rate: 10 to 29 per min(4); [place]amo Score: 15; Trauma Score: 12 ED Course: 19:02 Patient arrived in ED. mr 19:04 Nigel Oliver PA-C is PHCP. cp 19:04 Luis Flaherty DO is Attending Physician. cp 19:12 Jazmine Burleson, SCOTTY is Primary Nurse. km10 19:13 Triage completed. dd2 19:13 Patient has correct armband on for positive identification. Bed in low position. Call km10 light in reach. Side rails up X 1. Client placed on continuous cardiac and pulse oximetry monitoring. NIBP monitoring applied. 19:13 Arm band placed on right wrist. dd2 19:18 Provided Education on: plan of care. Door closed. Noise minimized. Elevated right. km10 19:30 Thermoregulation: warm blanket given to patient. km10 19:31 Basic Metabolic Panel Sent. kd3 19:31 CBC with Diff Sent. kd3 19:31 Type And Screen Sent. kd3 19:31 Inserted saline lock: 20 gauge in right antecubital area, using aseptic technique. kd3 Blood collected. Flushed with 10 mL NS. 19:45 Patient maintains SpO2 saturation greater than 95% on room air. km10 19:57 CT Chest, Abdomen, Pelvis - W/Contrast In Process Unspecified. EDMS 22:23 IV discontinued, intact, bleeding controlled, No redness/swelling at site. Pressure km10 dressing applied. 22:29 No provider procedures requiring assistance completed. km10 Administered Medications: 19:33 Drug: morphine IVP or IV 4 mg IVP once over 4 mins Route: IVP; Infused Over: 4 mins; km10 Site: right antecubital; 21:23 Follow up: Response: No adverse reaction km10 19:33 Drug: Ondansetron IVP 4 mg IVP once; over 2 minutes Route: IVP; Site: right antecubital;km10 21:23 Follow up: Response: No adverse reaction km10 20:51 Drug: Methocarbamol IVPB 1 grams IVPB once over 1 hrs; (mix in NS 100 mL) Route: IVPB; kd3 Infused Over: 1 hrs; Site: right antecubital; 21:23 Follow up: Response: No adverse reaction; IV Status: Completed infusion km10 20:51 Drug: Ketorolac IVP 15 mg IVP once Route: IVP; Site: right antecubital; kd3 21:24 Follow up: Response: No adverse reaction km10 22:22 Drug: Hydrocodone-Acetaminophen PO (7.5 mg-325 mg) 1 tabs PO once; RASS on ADMIN: km10 Combtv4, Very Agttd3, Agttd2, Rstlss1, AlertClm0, Drwsy-1, Lt Sdtn-2, Mod Sdtn-3, Dp Sdtn-4, UnArsble-5 Route: PO; 22:31 Follow up: Response: No adverse reaction; Pain is decreased km10 Medication: 19:18 VIS not applicable for this client. km10 Outcome: 22:19 Discharge ordered by . cruz 22:28 Discharged to home ambulatory, with family, km10 22:28 Condition: stable 22:28 Discharge instructions given to patient, family, Instructed on discharge instructions, follow up and referral plans. medication usage, Demonstrated understanding of instructions, follow-up care, medications, Prescriptions given X 2, 22:31 Patient left the ED. km10 Signatures: Dispatcher [employer] EDMS Christina Cook, Reg Reg mr Melody Nigel, PA-C PAJacqui Horta cp RN RN kd3 RENAY DELGADO RN RN dd2 Jazmine Burleson RN RN km10 Corrections: (The following items were deleted from the chart) 19:14 19:13 Chief complaint: Patient states: pain along left ribs after trip and fall down km10 two steps km10
[2025-01-24] MEDS ORDERED: HYDROCODONE/APAP 7.5/325 MG TAB ONE (22:21)
[2025-01-24 23:08] VITALS: BP 138/86; TEMP 97.4
[2025-01-24 23:09] VITALS: O2SAT 97
== END 2025-01-24 22:31 | disposition home or self-care (01) ==
LOC: ER 19:00
DX: S20.212A Contusion of left front wall of thorax, initial encounter (principal); S20.222A Contusion of left back wall of thorax, initial encounter; W01.198A Fall on same level from slipping, tripping and stumbling with subsequent striking against other object, initial encounter; F17.210 Nicotine dependence, cigarettes, uncomplicated
CPT/HCPCS: 96365; 85025; 81001; 80048; 36415; 86900; 86850; 86901; 71260; 74177; 96375; 99284; Q9967; J1885; J2405; J2800

== ENCOUNTER 2025-01-29 20:07 | Emergency (ER) | payer OTHER ==
[2025-01-29] MEDS ORDERED: KETOROLAC 30 MG/ML INJ ONE (20:32)
[2025-01-29] MEDS ORDERED: DIAZEPAM 5 MG TABLET ONE (20:32)
[2025-01-29] MEDS ORDERED: HYDROCODONE/APAP 5/325 MG TAB ONE (20:32)
--- NOTE | 2025-01-29 21:41 | RAD REPORT ---
EXAM: Chest Single View HISTORY: 54 years Female PAIN COMPARISON: No prior exams FINDINGS: LUNGS/PLEURA: The lungs are clear. No pleural effusions or pneumothorax. No pulmonary edema. CARDIAC/MEDIASTINUM: The cardiac silhouette is within normal limits. UPPER ABDOMEN: No significant abnormality. BONES: No acute abnormality. LINES/TUBES/OTHER: N/A IMPRESSION: No evidence of acute cardiopulmonary disease.
--- NOTE | 2025-01-29 22:28 | ER ---
Nurse's Notes [facility] Name: Fany Meza Age: 54 yrs Sex: Female : 1970 Arrival Date: 01/29/2025 Time: 20:07 Bed 10 Private MD: Diagnosis: Fracture of one rib, left side Presentation: 01/29 20:15 Chief complaint: Patient states: 9TH LEFT SIDED RIB FX AFTER FALLING DOWN THE STAIRS ON [facility] THE 01/25/25. WAS SEEN IN THIS ER STATES CT SHOWED A RIB BRUISE. WAS STILL HAVING PAIN AND WAS SEEN IN [facility] AND DX WITH A RIB FX. NOW HAVING SEVERE PAIN. Coronavirus screen: At this time, the client does not indicate any symptoms associated with coronavirus-19. Ebola Screen: No symptoms or risks identified at this time. Initial Sepsis Screen: Does the patient meet any 2 criteria? No. Patient's initial sepsis screen is negative. Does the patient have a suspected source of infection? No. Patient's initial sepsis screen is negative. Risk Assessment: Do you want to hurt yourself or someone else? Patient reports no desire to harm self or others. Note TOOK TYLENOL #3. Onset of symptoms was January 25, 2025. 20:15 Method Of Arrival: Ambulatory [facility] 20:15 Acuity: SHARAN 4 [facility] Triage Assessment: 20:37 General: Appears distressed, uncomfortable, Behavior is cooperative, appropriate for [facility] age, crying. Pain: Complains of pain in back and chest. Musculoskeletal: BRUISING TO LEFT LOWER BACK AND FLANK FROM RIB FX. 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 - Infectious Disease History:: Denies. - Social history:: Smoking status: Patient reports the use of cigarette tobacco products, USES A PATCH, Patient uses alcohol, only on a social basis. Patient/guardian denies using street drugs, IV drugs. Screenin:37 [facility] ED Fall Risk Assessment (Adult) History of falling in the last 3 months, j7 including since admission Yes- single mechanical fall (1 pt) Confusion or Disorientation No (0 pts) Intoxicated or Sedated No (0 pts) Impaired Gait No (0 pts) Mobility Assist Device Used No (0 pt) Altered Elimination No (0 pt) Score/Fall Risk Level 0 - 2 = Low Risk Oriented to surroundings, Maintained a safe environment, Educated pt \T\ family on fall prevention, incl call for assistance when getting out of bed, Assessed \T\ reinforced patient's understanding of fall precautions. Abuse screen: Denies threats or abuse. Nutritional screening: No deficits noted. Tuberculosis screening: No symptoms or risk factors identified. Assessment: 20:30 General: Appears in no apparent distress. uncomfortable, Behavior is calm, cooperative, jb4 appropriate for age. Pain: Complains of pain in left ribs Pain does not radiate. Pain currently is 10 out of 10 on a pain scale. Neuro: Level of Consciousness is awake, alert, obeys commands, Oriented to person, place, time, situation. Cardiovascular: Patient's skin is warm and dry. Respiratory: Airway is patent Respiratory effort is even, unlabored, Respiratory pattern is regular, symmetrical. Derm: Skin is intact, Skin is pink, warm \T\ dry. Musculoskeletal: Circulation, motion, and sensation intact. Range of motion: intact in all extremities. 21:30 Reassessment: Patient appears in no apparent distress at this time. Patient and/or jb4 family updated on plan of care and expected duration. Pain level reassessed. Patient is alert, oriented x 3, equal unlabored respirations, skin warm/dry/pink. 22:26 Reassessment: Patient appears in no apparent distress at this time. Patient and/or jb4 family updated on plan of care and expected duration. Pain level reassessed. Patient is alert, oriented x 3, equal unlabored respirations, skin warm/dry/pink. Vital Signs: 20:15 BP 162 / 94; Pulse 83; Resp 16; Temp 97.5; Pulse Ox 97% ; Weight 77.11 kg; Height 5 ft. jj7 4 in. ; Pain 10/10; 20:15 Body Mass Index 29.18 (77.11 kg, 162.56 cm) [facility] 20:15 Pain Scale: Adult jj7 ED Course: 20:08 Patient arrived in ED. im 20:09 [facility] kb 20:09 Derick Miguel MD is Attending Physician. kb 20:36 Triage completed. jj7 20:37 Arm band placed on right wrist. Patient placed in an exam room, on a stretcher. jj7 21:03 Henrry Alfonso, RN is Primary Nurse. jb4 21:29 Chest Single View XRAY In Process Unspecified. EDMS 23:05 No provider procedures requiring assistance completed. Patient did not have IV access jj7 during this emergency room visit. Administered Medications: 20:30 Not Given (Physician Discretion): hydrocodone-acetaminophen(7.5 mg-325 mg) 1 tabs PO kb once 20:37 Drug: HYDROcodone-acetaminophen PO 5 mg-325 mg 1 tabs PO once Route: PO; jb4 20:37 Drug: Diazepam PO 5 mg PO once Route: PO; jb4 20:38 Drug: Ketorolac IM 30 mg IM once Route: IM; Site: right deltoid; jb4 Medication: 20:30 VIS not applicable for this client. jj7 Outcome: 22:27 Discharge ordered by . kb 23:05 Discharged to home ambulatory, jj7 23:05 Condition: improved 23:05 Discharge instructions given to patient, Instructed on discharge instructions, follow up and referral plans. 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 jj7 Signatures: Dispatcher [employer] EDMN Lisa Cabrera FNP-C CONTRACT FORESTER-Ck Henrry Alfonso, RN RN jb4 Sonu Meza RN RN jj7 Jaelyn Lemus im
--- NOTE | 2025-01-29 22:28 | EDPHYS ---
Physician Documentation [facility] Name: Fany Meza Age: 54 yrs Sex: Female : 1970 Arrival Date: 01/29/2025 Time: 20:07 Bed 10 Private MD: ED Physician Derick Miguel HPI: 01/29 22:37 This 54 yrs old Female presents to ER via Ambulatory with complaints of rib pain. kb 22:37 Patient is a 54-year-old female who presents for left rib pain. States she fell down a kb few steps 4 days ago. Was seen here afterwards and had a CT scan that was normal. States the pain increased so she went to [facility] ER and was diagnosed with a rib fracture on rib 9 on the left side. States pain has continued to increase. Was prescribed Tylenol 3 by pain management but is not pain. Reports pain worse with movement and breathing.. 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 - Infectious Disease History:: Denies. - Social history:: Smoking status: Patient reports the use of cigarette tobacco products, USES A PATCH, Patient uses alcohol, only on a social basis. Patient/guardian denies using street drugs, IV drugs. ROS: 22:37 Constitutional: As per HPI kb Exam: 22:37 Constitutional: This is a well developed, well nourished patient who is awake, alert, kb and in no acute distress. Head/Face: Normocephalic, atraumatic. ENT: Moist Mucous membranes Cardiovascular: Regular rate Respiratory: Respirations even and unlabored. No increased work of breathing. Talking in full sentences Skin: Warm, dry with normal turgor. Normal color. MS/ Extremity: Pulses equal, no cyanosis. Neurovascular intact. Full, normal range of motion. Neuro: Awake and alert, GCS 15, oriented to person, place, time, and situation. 22:37 Chest/axilla: Inspection: ecchymosis, that is mild, of the left lateral posterior chest Palpation: tenderness, that is moderate, that totally reproduces the patient's complaints, Vital Signs: 20:15 BP 162 / 94; Pulse 83; Resp 16; Temp 97.5; Pulse Ox 97% ; Weight 77.11 kg; Height 5 ft. jj7 4 in. ; Pain 10/10; 20:15 Body Mass Index 29.18 (77.11 kg, 162.56 cm) jj7 20:15 Pain Scale: Adult jj7 MDM: 20:09 Medical Screening Exam initiated kb 22:38 Differential diagnosis: Contusion, fracture, pneumothorax. Data reviewed: vital signs, kb nurses notes. Counseling: I had a detailed discussion with the patient and/or guardian regarding the historical points, exam findings, and any diagnostic results supporting the discharge/admit diagnosis, radiology results, the need for outpatient follow up, a family practitioner, to return to the emergency department if symptoms worsen or persist or if there are any questions or concerns that arise at home. 22:38 ED course: CT chest abdomen pelvis with contrast was done during previous visit and kb showed no acute findings. 01/29 20:24 Order name: Chest Single View XRAY; Complete Time: 21:47 kb Administered Medications: 20:30 Not Given (Physician Discretion): hydrocodone-acetaminophen(7.5 mg-325 mg) 1 tabs PO kb once 20:37 Drug: HYDROcodone-acetaminophen PO 5 mg-325 mg 1 tabs PO once Route: PO; jb4 20:37 Drug: Diazepam PO 5 mg PO once Route: PO; jb4 20:38 Drug: Ketorolac IM 30 mg IM once Route: IM; Site: right deltoid; jb4 Disposition: 01/30 04:00 Co-signature as Attending Physician, Derick Miguel MD I agree with the assessment sp4 and plan of care. I reviewed the patient's care provided by the Advanced Practice Provider and agree with the diagnosis and treatment plan. Disposition Summary: 01/29/25 22:27 Discharge Ordered Notes: Location: Home Condition: Stable kb Diagnosis - Fracture of one rib, left side kb Followup: kb - With: Emergency Department - When: As needed - Reason: Worsening of condition Followup: kb - With: Private Physician - When: 2 - 3 days - Reason: Recheck today's complaints, Continuance of care, Re-evaluation by your physician Discharge Instructions: - Discharge Summary Sheet kb - Rib Fracture, [id number] kb Forms: - Medication Reconciliation Form kb - Antibiotic Education kb - Prescription Opioid Use kb - Patient Portal Instructions kb - Leadership Thank You Letter kb Signatures: Dispatcher [employer] EDLisa Mckeon FNP-C FNP-Ckb Bryson, James, RN RN jb4 Sonu Meza RN RN jj7 Derick Miguel MD MD sp4
[2025-01-30 06:45] VITALS: BP 162/94; TEMP 97.5; O2SAT 97
== END 2025-01-29 23:12 | disposition home or self-care (01) ==
LOC: ER 20:07
DX: S22.32XA Fracture of one rib, left side, initial encounter for closed fracture (principal)
CPT/HCPCS: 71045; 96372; 99284; J1885

== ENCOUNTER 2025-02-07 15:18 | Emergency (ER) | payer OTHER ==
[2025-02-07] MEDS ORDERED: KETOROLAC 30 MG/ML INJ ONE (16:05)
[2025-02-07] MEDS ORDERED: HYDROCODONE/APAP 5/325 MG TAB ONE (16:06)
--- NOTE | 2025-02-07 16:27 | RAD REPORT ---
EXAM: Chest Single View HISTORY: 54 years Female Chest pain;Cough COMPARISON: 01/29/2025 FINDINGS: LUNGS/PLEURA: The lungs are clear. No pleural effusions or pneumothorax. No pulmonary edema. CARDIAC/MEDIASTINUM: The cardiac silhouette is within normal limits. UPPER ABDOMEN: No significant abnormality. BONES: No acute abnormality. LINES/TUBES/OTHER: N/A IMPRESSION: No evidence of acute cardiopulmonary disease. No significant change from prior.
--- NOTE | 2025-02-07 16:36 | RAD REPORT ---
EXAMINATION: Ribs Left VIEWS: Two views CLINICAL INDICATION: Female, 54 years old. Previous rib fx on 01/25/25;Pain COMPARISON: Same-day chest radiograph, chest CT 01/24/2025 IMPRESSION: Possible mildly displaced left posterior first rib fracture. This is only seen on one of the views. T his could be an uncommon location for an isolated rib fracture. Correlate with site of pain and injury. No pneumothorax. No other rib fractures identified.
--- NOTE | 2025-02-07 17:20 | EDPHYS ---
Physician Documentation [facility] Name: Fany Meza Age: 54 yrs Sex: Female : 1970 Arrival Date: 02/07/2025 Time: 15:18 Bed 3 Private MD: ED Physician Chris Grimes HPI: 02/07 18:34 This 54 yrs old Female presents to ER via Ambulatory with complaints of dr5 Abdominal Pain, Shortness Of Breath. 19:33 Patient is a 54-year-old female with history of cervical cancer, GERD, hypertension dr5 coming in with fall that occurred on January 18 of this month. Patient reports that she was seen in [facility] and diagnosed with fractured seventh rib. Patient reports left upper quadrant pain this been going on the past couple days. Patient reports using incentive spirometer as directed. Patient denies fever, cough, congestion.. 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 - Infectious Disease History:: Denies. - Social history:: Smoking status: Patient reports the use of cigarette tobacco products, denies chronic smoking, but will smoke occasionally. ROS: 19:33 Constitutional: as per hpi dr5 Exam: 19:33 Constitutional: This is a well developed, well nourished patient who is awake, alert, dr5 and in no acute distress. Head/Face: Normocephalic, atraumatic. Eyes: Pupils equal round and reactive to light, extra-ocular motions intact. Lids and lashes normal. Conjunctiva and sclera are non-icteric and not injected. Cornea within normal limits. Periorbital areas with no swelling, redness, or edema. ENT: Nares patent. No nasal discharge, no septal abnormalities noted. Tympanic membranes are normal and external auditory canals are clear. Oropharynx with no redness, swelling, or masses, exudates, or evidence of obstruction, uvula midline. Mucous membranes moist. Neck: Trachea midline, no thyromegaly or masses palpated, and no cervical lymphadenopathy. Supple, full range of motion without nuchal rigidity, or vertebral point tenderness. No Meningismus. Chest/axilla: Normal chest wall appearance and motion. Nontender with no deformity. No lesions are appreciated. Cardiovascular: Regular rate and rhythm with a normal S1 and S2. Normal PMI, no JVD. No pulse deficits. Respiratory: Lungs have equal breath sounds bilaterally, clear to auscultation. No rales, rhonchi or wheezes noted. No increased work of breathing, no retractions or nasal flaring. Back: No spinal tenderness. No costovertebral tenderness. Full range of motion. Skin: Warm, dry with normal turgor. Normal color with no rashes, no lesions, and no evidence of cellulitis. No contusion or abrasion noted on left flank and no tenderness to left back. MS/ Extremity: Pulses equal, no cyanosis. Neurovascular intact. Full, normal range of motion. Neuro: Awake and alert, GCS 15, oriented to person, place, time, and situation. Cranial nerves II-XII grossly intact. Motor strength 5/5 in all extremities. Sensory grossly intact. Cerebellar exam normal. Normal gait. Vital Signs: 15:53 BP 142 / 89; Pulse 70; Resp 16; Temp 97.3; Pulse Ox 100% on R/A; Weight 76.66 kg; ph Height 5 ft. 4 in. ; Pain 7/10; 16:43 BP 136 / 78; Pulse 69; Resp 16; Pulse Ox 97% on R/A; cc6 17:36 BP 132 / 79; Pulse 71; Resp 16; Pulse Ox 97% on R/A; cc6 15:53 Body Mass Index 29.01 (76.66 kg, 162.56 cm) ph 15:53 Pain Scale: Adult ph MDM: 15:26 Medical Screening Exam initiated dr5 19:33 Differential diagnosis: Pneumonia, rib fracture, costochondritis. Data reviewed: vital dr5 signs, nurses notes. Consideration of Admission/Observation Escalation of care including admission/observation considered. Escalation considered patient found to have new fractures.. I considered the following discharge prescriptions or medication management in the emergency department I discussed and recommended Over The Counter medications, Medications were administered in the Emergency Department. See MAR. Independent interpretation of the following test(s) in the Emergency Department X-Ray: My interpretation is Independent interpretation does not show fracture on ninth rib. Care significantly affected by the following chronic conditions: Cervical cancer, GERD, hypertension. Care significantly affected by the following Social Determinants of Health: Poor access to healthcare and/or lack of insurance, Poor access to transportation, Problems related to employment. Counseling: I had a detailed discussion with the patient and/or guardian regarding the historical points, exam findings, and any diagnostic results supporting the discharge/admit diagnosis, the presence of at least one elevated blood pressure reading (>120/80) during this emergency department visit, radiology results, the need for outpatient follow up, for definitive care, a family practitioner, to return to the emergency department if symptoms worsen or persist or if there are any questions or concerns that arise at home. Medication response: [place], Toradol. Response to treatment: the patient's symptoms have markedly improved after treatment. Special discussion: I discussed with the patient/guardian in detail that at this point there is no indication for admission to the hospital. It is understood, however, that if the symptoms persist or worsen the patient needs to return immediately for re-evaluation. Based on the history and exam findings, there is no indication for further emergent testing or inpatient evaluation. I discussed with the patient/guardian the need to see the orthopedic surgeon for further evaluation of the symptoms. ED course: Will have patient continue using incentive spirometer. No pneumonia noted. No antibiotics at this time. Recommended anti-inflammatories and will give pain medication to help. All questions answered. Strict ER precautions given.. 02/07 16:01 Order name: Chest Single View XRAY; Complete Time: 16:41 dr5 02/07 16:01 Order name: Ribs Left XRAY; Complete Time: 16:41 dr5 Administered Medications: 16:19 Drug: HYDROcodone-acetaminophen PO 5 mg-325 mg 2 tabs PO once Route: PO; cc6 17:39 Follow up: Response: No adverse reaction; Pain is decreased cc6 16:19 Drug: Ketorolac IM 30 mg IM once Route: IM; Site: right deltoid; cc6 17:38 Follow up: Response: No adverse reaction; Pain is decreased cc6 17:38 Follow up: Response: No adverse reaction; Pain is decreased cc6 Disposition: 18:53 I was immediately available on-site in the Emergency Department for consultation in the ms3 care of the patient. Disposition Summary: 02/07/25 17:19 Discharge Ordered Notes: Location: Home dr5 Condition: Stable dr5 Diagnosis - Fracture of one rib, left side dr5 Followup: dr5 - With: Emergency Department - When: As needed - Reason: Worsening of condition Followup: dr5 - With: Private Physician - When: 1 - 2 days - Reason: Recheck today's complaints, Continuance of care, Re-evaluation by your physician Discharge Instructions: - Discharge Summary Sheet dr5 - Rib Fracture, [id number] dr5 Forms: - Medication Reconciliation Form dr5 - Antibiotic Education dr5 - Patient Portal Instructions dr5 - Leadership Thank You Letter dr5 Prescriptions: - Ibuprofen 800 mg Oral Tablet - take 1 tablet ORAL route every 12 hours As needed take with food; 20 tablet; dr5 Refills: 0, Product Selection Permitted - Tylenol-Codeine #3 300mg-30mg Oral tablet - take 2 tablets ORAL route every 6 hours As needed; 20 tablet; Refills: 0, dr5 Product Selection Permitted Signatures: Dispatcher [employer] EDIndigo Maxwell, RN RN Chris Grimes, DO DO ms3 Sherin Pandya RN RN cc6 Cody No, CAMELID FIBER SORTER-C CAMELID FIBER SORTER-Cdr5 Corrections: (The following items were deleted from the chart) 16:01 16:01 Ribs Left+RAD.RAD.BRZ ordered. [facility]
--- NOTE | 2025-02-07 17:20 | ER ---
Nurse's Notes [facility] Name: Fany Meza Age: 54 yrs Sex: Female : 1970 Arrival Date: 02/07/2025 Time: 15:18 Bed 3 Private MD: Diagnosis: Fracture of one rib, left side Presentation: 02/07 15:53 Chief complaint: Patient states: pain and bloating in LUQ that started 2 days ago. ph Fractured 9th rib on 01/18/25. Coronavirus screen: Client denies travel out of the [place] in the last 14 days. At this time, the client does not indicate any symptoms associated with coronavirus-19. Ebola Screen: No symptoms or risks identified at this time. Initial Sepsis Screen: Does the patient meet any 2 criteria? No. Patient's initial sepsis screen is negative. Does the patient have a suspected source of infection? No. Patient's initial sepsis screen is negative. Risk Assessment: Do you want to hurt yourself or someone else? Patient reports no desire to harm self or others. Onset of symptoms was February 05, 2025. 15:53 Method Of Arrival: Ambulatory ph 15:53 Acuity: SHARAN 3 ph Triage Assessment: 15:59 General: Appears in no apparent distress. uncomfortable, Behavior is calm, cooperative, ph appropriate for age, restless. Pain: Complains of pain in left upper quadrant Pain does not radiate. Pain currently is 7 out of 10 on a pain scale. Quality of pain is described as shooting. EENT: No signs and/or symptoms were reported regarding the EENT system. Neuro: Level of Consciousness is awake, alert, obeys commands, Oriented to person, place, time, situation, Appropriate for age. Cardiovascular: Capillary refill < 3 seconds Patient's skin is warm and dry. Respiratory: Airway is patent Respiratory effort is even, unlabored, Respiratory pattern is regular, symmetrical. GI: Abdomen is round non-distended, Abd is soft X 4 quads Abdomen is tender to palpation in left upper quadrant. : No signs and/or symptoms were reported regarding the genitourinary system. Derm: No signs and/or symptoms reported regarding the dermatologic system. Musculoskeletal: No signs and/or symptoms reported regarding the musculoskeletal system. 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 - Infectious Disease History:: Denies. - Social history:: Smoking status: Patient reports the use of cigarette tobacco products, denies chronic smoking, but will smoke occasionally. Screenin:[facility] ED Fall Risk Assessment (Adult) History of falling in the last 3 months, ph including since admission Yes- single mechanical fall (1 pt) Confusion or Disorientation No (0 pts) Intoxicated or Sedated No (0 pts) Impaired Gait No (0 pts) Mobility Assist Device Used No (0 pt) Altered Elimination No (0 pt) Score/Fall Risk Level 0 - 2 = Low Risk Oriented to surroundings, Maintained a safe environment, Hourly rounding (assess needs \T\ fall precautionary measures) done. Abuse screen: Denies threats or abuse. Denies injuries from another. Nutritional screening: No deficits noted. Tuberculosis screening: No symptoms or risk factors identified. Assessment: 15:53 Reassessment: SEE TRIAGE. cc6 16:43 Reassessment: Patient and/or family updated on plan of care and expected duration. Pain cc6 level reassessed. Patient is alert, oriented x 3, equal unlabored respirations, skin warm/dry/pink. 17:36 Reassessment: Patient and/or family updated on plan of care and expected duration. Pain cc6 level reassessed. Patient is alert, oriented x 3, equal unlabored respirations, skin warm/dry/pink. 17:37 GI:. cc6 Vital Signs: 15:53 BP 142 / 89; Pulse 70; Resp 16; Temp 97.3; Pulse Ox 100% on R/A; Weight 76.66 kg; ph Height 5 ft. 4 in. ; Pain 7/10; 16:43 BP 136 / 78; Pulse 69; Resp 16; Pulse Ox 97% on R/A; cc6 17:36 BP 132 / 79; Pulse 71; Resp 16; Pulse Ox 97% on R/A; cc6 15:53 Body Mass Index 29.01 (76.66 kg, 162.56 cm) ph 15:53 Pain Scale: Adult ED Course: 15:21 Patient arrived in ED. al6 15:26 Cody No [facility]C [facility]5 15:26 Chris Grimes DO is Attending Physician. dr5 15:53 Indigo Khoury, RN is Primary Nurse. ph 15:58 Triage completed. ph 16:01 Placed in gown. Bed in low position. Call light in reach. Side rails up X 1. Provided ph Education on: use of call light. 16:21 Chest Single View XRAY In Process Unspecified. EDMS 16:21 Ribs Left XRAY In Process Unspecified. EDMS 17:37 Arm band placed on right wrist. cc6 17:37 No provider procedures requiring assistance completed. Patient did not have IV access cc6 during this emergency room visit. Administered Medications: 16:19 Drug: HYDROcodone-acetaminophen PO 5 mg-325 mg 2 tabs PO once Route: PO; cc6 17:39 Follow up: Response: No adverse reaction; Pain is decreased cc6 16:19 Drug: Ketorolac IM 30 mg IM once Route: IM; Site: right deltoid; cc6 17:38 Follow up: Response: No adverse reaction; Pain is decreased cc6 17:38 Follow up: Response: No adverse reaction; Pain is decreased cc6 Medication: 17:38 VIS not applicable for this client. cc6 Outcome: 17:19 Discharge ordered by MD. dr5 17:37 Discharged to home ambulatory, cc6 17:37 Condition: stable 17:37 Discharge instructions given to patient, Instructed on discharge instructions, follow up and referral plans. medication usage, Demonstrated understanding of instructions, follow-up care, medications, Prescriptions given X 2, 17:38 Patient left the ED. cc6 Signatures: Dispatcher [employer] EDMS Indigo Khoury, RN SCOTTY Sherin Pandya RN RN cc6 Cody No FNP-C FNP-Cdr5 Eloisa Love al6
[2025-02-07 17:43] VITALS: TEMP 97.3
[2025-02-07 17:44] VITALS: O2SAT 97
[2025-02-07 17:45] VITALS: BP 132/79
== END 2025-02-07 17:38 | disposition home or self-care (01) ==
LOC: ER 15:18
DX: S22.32XA Fracture of one rib, left side, initial encounter for closed fracture (principal)
CPT/HCPCS: 71045; 71100; 96372; 99284; J1885